=== PATIENT | female | born 1950 | race Caucasian/White ===

== ENCOUNTER 2019-08-04 11:10 | Emergency (ER) | payer MEDICARE, MEDICAID, SELFPAY ==
--- NOTE | 2019-08-04 11:29 | ED.URI ---
HPI - URI/Sore Throat General Chief Complaint: Upper Respiratory Infection Stated Complaint: Ear/Nose/Throat Time Seen by Provider: 08/04/19 11:57 Source: patient and RN notes reviewed Mode of arrival: ambulatory Limitations: no limitations History of Present Illness HPI Narrative: 68-year-old female presents with concern for throat itching, ear itching, cough, nasal drainage. Reports symptoms started over the weekend. She denies fever, reports body aches. Reports history of strep. MD elicited complaint: nasal congestion Related Data Home Medications Medication Instructions Recorded Confirmed Basaglar KwikPen U-100 Insulin 08/04/19 Corlanor 08/04/19 Novalog 08/04/19 Ventolin HFA 08/04/19 Xigduo XR 08/04/19 amitriptyline 25 mg PO HS 08/04/19 08/04/19 aspirin [Aspir-81] 08/04/19 dexlansoprazole [Dexilant] 60 mg PO DAILY 08/04/19 08/04/19 diazepam 10 mg PO TID PRN 08/04/19 08/04/19 dulaglutide [Trulicity] 0.75 mg SUBCUT WEEKLY 08/04/19 08/04/19 duloxetine 60 mg PO DAILY 08/04/19 08/04/19 flu vacc qs 2018- (6 mos up) IM 08/04/19 [Fluzone Quad [id number]] flu vacc qs 2018- (6 mos up) IM 08/04/19 [Fluzone Quad ] fluticasone propionate [Flonase INTRANASAL 08/04/19 Allergy Relief] furosemide 20 mg PO DAILY 08/04/19 08/04/19 gabapentin 800 mg PO TID 08/04/19 08/04/19 gabapentin 800 mg PO TID 08/04/19 08/04/19 levothyroxine 08/04/19 magnesium oxide 400 mg PO DAILY 08/04/19 08/04/19 naloxegol [Movantik] 25 mg PO QAM 08/04/19 08/04/19 rosuvastatin 5 mg PO DAILY 08/04/19 08/04/19 sacubitril-valsartan [Entresto] 1 tablet PO BID 08/04/19 08/04/19 sacubitril-valsartan [Entresto] 1 tablet PO BID 08/04/19 08/04/19 sitagliptin [Januvia] 100 mg PO DAILY 08/04/19 08/04/19 sumatriptan succinate 100 mg PO ONCE 08/04/19 08/04/19 theophylline 300 mg PO Q24H 08/04/19 08/04/19 valacyclovir 500 mg PO DAILY 08/04/19 08/04/19 Allergies Allergy/AdvReac Type Severity Reaction Status Date / Time Sulfa (Sulfonamide Allergy Mild UNKNOWN Verified 08/19/18 14:14 Antibiotics) Penicillins Allergy Swelling Verified 08/04/19 11:59 of Lip/Tongue/Throat Review of Systems Review of Systems: Narrative: CONSTITUTIONAL: Denies malaise, chills, sweats, or fever. EYES: Denies visual changes, redness, or discharge. ENT: Reports rhinorrhea, congestion, itchy ears and throat. Denies sinus pain, otalgia and sore throat. CARDIOVASCULAR: Denies chest pain, palpitations, or edema. RESPIRATORY: Reports cough. Denies dyspnea. GASTROINTESTINAL: Denies abdominal pain, nausea, vomiting, diarrhea SKIN: Denies rash or itching. MUSCULOSKELETAL: Reports myalgia. NEUROLOGIC: Denies headache. All systems reviewed & are unremarkable except as noted in HPI and below PMFSH Comments At time of signature, agree with nursing past medical, surgical, social and family history. There is no relevant family history pertinent to the presenting complaint Exam Narrative: Exam Narrative: GENERAL: Well-appearing, well-nourished, and in no acute distress. HEAD: Normocephalic EYES: PERRLA, conjunctivae clear ENT: Nares clear, turbinates erythematous, clear discharge. Mucous membranes moist. TM pearly pendleton with dull light reflex bilaterally; no tragal tenderness. Oropharynx erythematous without lesions. Tonsils not enlarged and without exudate, no drooling, no hoarseness, no trismus, uvula midline. NECK: Supple. No lymphadenopathy CHEST: Clear to auscultation, breath sounds equal. No wheezing, rhonchi, rales, or stridor. No respiratory distress, speaks in full sentences. HEART: Regular rate and rhythm. No murmur heard. SKIN: Warm, dry, no rash. NEURO: Alert and oriented x3. PSYCH: Normal mood and affect Course Course Emergency Course: Patient is aware of diagnosis, understands and agrees to treatment plan. Anticipatory guidance given. Patient agrees to follow-up as directed and is aware of reasons to seek care at the emergency department.
[2019-08-04 11:31] VITALS: BP 103/55; PULSE 86; RESP 20; TEMP 36.4; O2SAT 100
== END 2019-08-04 12:28 | disposition home or self-care (01) ==
PROVIDERS: Emergency Provider Nurse Practitioner; PCP Family Medicine
DX: J00 Acute nasopharyngitis [common cold] (principal); J01.90 Acute sinusitis, unspecified; I50.9 Heart failure, unspecified; E78.00 Pure hypercholesterolemia, unspecified; Z95.810 Presence of automatic (implantable) cardiac defibrillator; K21.9 Gastro-esophageal reflux disease without esophagitis; M19.90 Unspecified osteoarthritis, unspecified site; Z96.641 Presence of right artificial hip joint; F41.9 Anxiety disorder, unspecified
CPT/HCPCS: 87081; 87880; 99213; G0463

== ENCOUNTER 2019-12-22 12:49 | Emergency (ER) | payer MEDICARE, MEDICAID, SELFPAY ==
--- NOTE | ~2019-12-22 | XR_ITS ---
EXAMINATION: XR chest 2V DATE: 12/22/2019 13:34 INDICATION: Productive cough, COPD and emphysema TECHNIQUE: PA and lateral views of the chest are obtained. COMPARISON: 01/04/2014 FINDINGS: The lungs are hyperinflated but free of acute opacities. There is no pleural effusion or pn eumothorax. The cardiomediastinal silhouette is normal. A dual-lead cardiac pacemaker of the left esequiel st wall ends with leads in expected locations. The bones are osteopenic. There is stable midthoracic compression fractures. There are new age-indeterminate fractures of the lower thoracic spine. IMPRESSION: 1. Hyperinflation without acute cardiopulmonary abnormality. 2. New age-indeterminate compression fractures of the lower thoracic spine. Reviewed, dictated and finalized at location B.
[2019-12-22 13:08] VITALS: BP 101/56; PULSE 63; RESP 18; TEMP 36.8; O2SAT 93
--- NOTE | 2019-12-22 13:11 | ED.URI ---
HPI - URI/Sore Throat General Chief Complaint: Upper Respiratory Infection Stated Complaint: cough fever Time Seen by Provider: 12/22/19 13:11 Source: patient and RN notes reviewed History of Present Illness HPI Narrative: Patient is a 69-year-old female who presents the urgent care with complaints of productive cough and fever. Patient states that she has had the productive coughing fits for approximately 1 week and she does have a history of emphysema. Patient states that she has had 1 fever of 101 Fahrenheit last night which resolved with 1 dose of 800 mg ibuprofen. Patient states that she does have a history of pneumonia but has not had pneumonia this year. Patient denies of any known exposure to a COVID patient but states that her daughter has been around her recently with upper respiratory symptoms. Patient does not chronically use oxygen but does have it available at home if needed. Patient states that she has not been short of breath and has not needed any oxygen during the coughing episodes this week. Patient does religiously use her nebulizer once daily as well as her inhalers as prescribed. Patient denies any other upper respiratory symptoms. States that she has had some episodes of wheezing, per her normal. No acute distress noted. Patient read the plan of care. Related Data Home Medications Medication Instructions Recorded Confirmed albuterol sulfate 2.5 mg INHALATION DIRECTED 12/22/19 12/22/19 albuterol sulfate [Ventolin HFA] 2 inh INHALATION DIRECTED 12/22/19 12/22/19 amitriptyline 25 mg PO DAILY 12/22/19 12/22/19 aspirin 81 mg PO DAILY 12/22/19 12/22/19 carvedilol 3.125 mg PO DIRECTED 12/22/19 12/22/19 cyanocobalamin (vitamin B-12) 1,000 mcg PO DAILY 12/22/19 12/22/19 dapagliflozin-metformin [Xigduo XR] 1 tablet PO DIRECTED 12/22/19 12/22/19 dexlansoprazole [Dexilant] 60 mg PO DAILY 12/22/19 12/22/19 diazepam 10 mg PO DIRECTED 12/22/19 12/22/19 dulaglutide [Trulicity] 0.5 mg SUBCUT WEEKLY 12/22/19 12/22/19 duloxetine 60 mg PO DAILY 12/22/19 12/22/19 ergocalciferol (vitamin D2) 1,250 mcg PO DAILY 12/22/19 12/22/19 fluticasone propionate 2 mcg INTRANASAL DAILY 12/22/19 12/22/19 hydrocodone-acetaminophen 1 tablet PO DAILY 12/22/19 12/22/19 ibuprofen 800 mg PO TID 12/22/19 12/22/19 ivabradine [Corlanor] 5 mg PO DAILY 12/22/19 12/22/19 levothyroxine 25 mcg PO DAILY 12/22/19 12/22/19 magnesium oxide 400 mg PO DAILY 12/22/19 12/22/19 mometasone 0.1 % TOPICAL DIRECTED 12/22/19 12/22/19 naloxegol [Movantik] 25 mg PO DAILY 12/22/19 12/22/19 nystatin 100,000 unit TOPICAL DIRECTED 12/22/19 12/22/19 patiromer calcium sorbitex 8.4 g PO DAILY 12/22/19 12/22/19 [Veltassa] rosuvastatin 5 mg PO DAILY 12/22/19 12/22/19 sacubitril-valsartan [Entresto] 1 tablet PO DAILY 12/22/19 12/22/19 sitagliptin [Januvia] 100 mg PO DAILY 12/22/19 12/22/19 sumatriptan succinate 100 mg PO DAILY 12/22/19 12/22/19 theophylline 300 mg PO DAILY 12/22/19 12/22/19 valacyclovir 500 mg PO DIRECTED 12/22/19 12/22/19 Allergies Allergy/AdvReac Type Severity Reaction Status Date / Time Sulfa (Sulfonamide Allergy Mild UNKNOWN Verified 12/22/19 13:19 Antibiotics) Penicillins Allergy Swelling Verified 12/22/19 13:19 of Lip/Tongue/Throat Review of Systems Review of Systems: Narrative: CONSTITUTIONAL: Reports of fever EYES: Denies visual changes, redness, or discharge. ENT: Denies rhinorrhea, congestion, sore throat, or otalgia. CARDIOVASCULAR: Denies chest pain, palpitations, or edema. RESPIRATORY: Reports a productive cough with intermittent wheezing GASTROINTESTINAL: Denies abdominal pain, nausea, vomiting, or diarrhea. GENITOURINARY: Denies dysuria or hematuria. SKIN: Denies rash or itching. MUSCULOSKELETAL: Denies back pain, joint pain, or myalgia. NEUROLOGIC: Denies headache, numbness, or weakness. All other systems reviewed are negative, except as documented in HPI. [facility] Comments At the time of my signature, I
== END 2019-12-22 13:50 | disposition home or self-care (01) ==
PROVIDERS: Emergency Provider Nurse Practitioner Family; PCP Family Medicine
DX: J06.9 Acute upper respiratory infection, unspecified (principal); J43.9 Emphysema, unspecified; Z79.82 Long term (current) use of aspirin; Z79.84 Long term (current) use of oral hypoglycemic drugs
CPT/HCPCS: 71046; 99213; G0463

== ENCOUNTER 2020-05-25 11:19 | Emergency (ER) | payer MEDICARE, MEDICAID, SELFPAY ==
--- NOTE | ~2020-05-25 | XR_ITS ---
XR chest 2V DATE: 05/25/2020 11:52 INDICATION: Chest tightness, shortness of breath for one week. History of COPD. Ex-smoker. TECHNIQUE: 2 views COMPARISON: 12/14/2019 2 view chest FINDINGS: Left-sided pacemaker device with leads overlying right atrium and right ventricle is again noted. Normal heart size. No hilar or mediastinal enlargement. The lungs are mildly hyperinflated but clear of infiltrate or consolidation. No pulmonary mass lesion is evident. No pleural effusion or pulmonary vascular congestion or pneumothorax. There is diffuse osteopenia. There is dextroscoliosis of the thoracic spine and lumbar levoscoliosis. There are multiple apparent compression fracture deformities of the thoracic spine, also present on . IMPRESSION: No active disease or significant change since 12/14/2019 Reviewed, dictated and finalized at location A. [employer]
[2020-05-25 11:31] VITALS: BP 118/72; PULSE 88; RESP 14; TEMP 36.2; O2SAT 100
--- NOTE | 2020-05-25 11:52 | ED.URI ---
HPI - URI/Sore Throat General Chief Complaint: Upper Respiratory Infection Stated Complaint: Thinks have pneumonia Time Seen by Provider: 05/25/20 11:52 History of Present Illness HPI Narrative: Kary Bellamy is a 69 yo female with a PMH of CHF, pacemaker, HTN, copd, depression, high cholesterol, HSV, who comes to express care for complaints of chest discomfort and is worried about having pneumonia. Came here for chest x-ray and would like an antibiotic. No fever no shortness of breath no congestion. Related Data Home Medications Medication Instructions Recorded Confirmed albuterol sulfate 2.5 mg INHALATION DIRECTED 12/22/19 05/25/20 albuterol sulfate [Ventolin HFA] 2 inh INHALATION DIRECTED 12/22/19 05/25/20 amitriptyline 25 mg PO DAILY 12/22/19 05/25/20 aspirin 81 mg PO DAILY 12/22/19 05/25/20 carvedilol 3.125 mg PO DAILY 12/22/19 05/25/20 cyanocobalamin (vitamin B-12) 1,000 mcg PO DAILY 12/22/19 05/25/20 dapagliflozin-metformin [Xigduo XR] 1 tablet PO BID 12/22/19 05/25/20 dexlansoprazole [Dexilant] 60 mg PO DAILY 12/22/19 05/25/20 diazepam 10 mg PO DIRECTED 12/22/19 05/25/20 dulaglutide [Trulicity] 0.5 mg SUBCUT WEEKLY 12/22/19 05/25/20 duloxetine 60 mg PO DAILY 12/22/19 05/25/20 ergocalciferol (vitamin D2) 1,250 mcg PO DAILY 12/22/19 05/25/20 fluticasone propionate 2 mcg INTRANASAL DAILY 12/22/19 05/25/20 hydrocodone-acetaminophen 1 tablet PO DAILY 12/22/19 05/25/20 ivabradine [Corlanor] 5 mg PO DAILY 12/22/19 05/25/20 levothyroxine 25 mcg PO DAILY 12/22/19 05/25/20 magnesium oxide 400 mg PO DAILY 12/22/19 05/25/20 naloxegol [Movantik] 25 mg PO DAILY 12/22/19 05/25/20 patiromer calcium sorbitex 8.4 g PO DAILY 12/22/19 05/25/20 [Veltassa] rosuvastatin 5 mg PO DAILY 12/22/19 05/25/20 sacubitril-valsartan [Entresto] 1 tablet PO DAILY 12/22/19 05/25/20 sitagliptin [Januvia] 100 mg PO DAILY 12/22/19 05/25/20 sumatriptan succinate 100 mg PO DAILY 12/22/19 05/25/20 theophylline 300 mg PO DAILY 12/22/19 05/25/20 valacyclovir 500 mg PO DIRECTED 12/22/19 05/25/20 Allergies Allergy/AdvReac Type Severity Reaction Status Date / Time Sulfa (Sulfonamide Allergy Mild UNKNOWN Verified 05/25/20 11:45 Antibiotics) Penicillins Allergy Swelling Verified 05/25/20 11:45 of Lip/Tongue/Throat Review of Systems Review of Systems: Narrative: CONSTITUTIONAL: Denies fever, chills, sweats. EYES: Denies visual changes, redness, discharge. ENT: Denies rhinorrhea, congestion, sore throat, otalgia. CARDIOVASCULAR: Denies chest pain, palpitations, edema. RESPIRATORY: Denies dyspnea, wheezing, has mild cough GASTROINTESTINAL: Denies abdominal pain, nausea, vomiting, diarrhea. GENITOURINARY: Denies dysuria, hematuria, abnormal discharge SKIN: Denies rash or itching. NEUROLOGIC: Denies numbness, or focal weakness. PSYCHIATRIC: Denies anxiety or depression. PMFSH Past Medical History Medical History CHF (congestive heart failure) COPD (chronic obstructive pulmonary disease) Hypertension Pacemaker Family History Family History Other Heart disease Hypertension Social History Social History (Updated 05/25/20 @ 12:03 by Marina Howard CNP) Smoking status: Former smoker Alcohol intake: current Comments At time of signature, I agree with nursing past medical, surgical, social and family history. There is no relevant family history pertinent to the presenting complaint. Exam Narrative: Exam Narrative: GENERAL: This is a well-nourished, well-developed patient, in mild distress. HEAD: normocephalic, atraumatic. EYES: Sclera clear/white. Vision is grossly intact. EARS: External ears normal,Hearing grossly intact. NOSE: External nose normal without nasal discharge, nares without redness, no rhinorrhea. THROAT: Mucous membranes moist, posterior pharynx NECK: Neck supple, CARDIOVASCU
== END 2020-05-25 12:21 | disposition home or self-care (01) ==
PROVIDERS: Emergency Provider Nurse Practitioner; PCP Family Medicine
DX: R05 Cough (principal); Z87.891 Personal history of nicotine dependence; I11.0 Hypertensive heart disease with heart failure; I50.9 Heart failure, unspecified; J44.9 Chronic obstructive pulmonary disease, unspecified; Z95.0 Presence of cardiac pacemaker; F32.9 Major depressive disorder, single episode, unspecified; E78.00 Pure hypercholesterolemia, unspecified
CPT/HCPCS: 71046; 99213; G0463

== ENCOUNTER 2021-01-21 17:55 | Emergency (ER) | payer MEDICARE, MEDICAID, SELFPAY ==
[2021-01-21 18:02] VITALS: BP 98/60; PULSE 73; RESP 16; TEMP 36.4; O2SAT 100
--- NOTE | 2021-01-21 18:05 | ED.URI ---
HPI - URI/Sore Throat General Chief Complaint: Upper Respiratory Infection Stated Complaint: sore throat congestion swollen ankle Time Seen by Provider: 01/21/21 18:15 Source: patient and RN notes reviewed Mode of arrival: ambulatory Limitations: no limitations History of Present Illness HPI Narrative: 70-year-old female presents with concern for hoarse voice, chest congestion, swollen ankle. She has a history of COPD, hypertension, congestive heart failure. She denies sore throat, nasal congestion, rhinorrhea, body aches, chills, sweats, fever, shortness of breath. Reports slightly increased cough from baseline. She denies any [id number] intervention. Reports she has as needed Lasix to take, however she does not take it because it makes her blood pressure drop. She denies any ankle injury, pain, redness, warmth. Reports she has been elevating her legs which has helped slightly with the swelling MD elicited complaint: sore throat Related Data Home Medications Medication Instructions Recorded Confirmed albuterol sulfate 2.5 mg INHALATION DIRECTED 12/22/19 01/21/21 albuterol sulfate [Ventolin HFA] 2 inh INHALATION DIRECTED 12/22/19 01/21/21 amitriptyline 25 mg PO DAILY 12/22/19 01/21/21 aspirin 81 mg PO DAILY 12/22/19 01/21/21 carvedilol 3.125 mg PO DAILY 12/22/19 01/21/21 cyanocobalamin (vitamin B-12) 1,000 mcg PO DAILY 12/22/19 01/21/21 dapagliflozin-metformin [Xigduo XR] 1 tablet PO BID 12/22/19 01/21/21 dexlansoprazole [Dexilant] 60 mg PO DAILY 12/22/19 01/21/21 diazepam 10 mg PO DIRECTED 12/22/19 01/21/21 dulaglutide [Trulicity] 0.5 mg SUBCUT WEEKLY 12/22/19 01/21/21 duloxetine 60 mg PO DAILY 12/22/19 01/21/21 ergocalciferol (vitamin D2) 1,250 mcg PO DAILY 12/22/19 01/21/21 fluticasone propionate 2 mcg INTRANASAL DAILY 12/22/19 01/21/21 ivabradine [Corlanor] 5 mg PO DAILY 12/22/19 01/21/21 levothyroxine 25 mcg PO DAILY 12/22/19 01/21/21 magnesium oxide 400 mg PO DAILY 12/22/19 01/21/21 naloxegol [Movantik] 25 mg PO DAILY 12/22/19 01/21/21 patiromer calcium sorbitex 8.4 g PO DAILY 12/22/19 01/21/21 [Veltassa] rosuvastatin 5 mg PO DAILY 12/22/19 01/21/21 sacubitril-valsartan [Entresto] 1 tablet PO DAILY 12/22/19 01/21/21 sitagliptin [Januvia] 100 mg PO DAILY 12/22/19 01/21/21 sumatriptan succinate 100 mg PO DAILY 12/22/19 01/21/21 theophylline 300 mg PO DAILY 12/22/19 01/21/21 valacyclovir 500 mg PO DIRECTED 12/22/19 01/21/21 hydrocodone-acetaminophen 1 tablet PO DAILY 01/21/21 01/21/21 Allergies Allergy/AdvReac Type Severity Reaction Status Date / Time Sulfa (Sulfonamide Allergy Mild Rash Verified 01/21/21 18:15 Antibiotics) Penicillins Allergy Swelling Verified 05/25/20 11:45 of Lip/Tongue/Throat Review of Systems Review of Systems: CONSTITUTIONAL: Denies malaise, chills, sweats, or fever. EYES: Denies visual changes, redness, or discharge. ENT: Denies rhinorrhea, congestion, sinus pain, otalgia and sore throat. CARDIOVASCULAR: Denies chest pain, palpitations. Reports ankle edema edema. RESPIRATORY: Reports cough, chest congestion, slightly hoarse voice. Denies dyspnea. GASTROINTESTINAL: Denies abdominal pain, nausea, vomiting, diarrhea SKIN: Denies rash or itching. MUSCULOSKELETAL: Denies myalgia. NEUROLOGIC: Denies headache. All systems reviewed & are unremarkable except as noted in HPI and below PMFSH Past Medical History Medical History CHF (congestive heart failure) COPD (chronic obstructive pulmonary disease) Hypertension Pacemaker Family History Family History Other Heart disease Hypertension Social History Social History (Updated 05/25/20 @ 12:03 by Marina Howard CNP) Smoking status: Former smoker Alcohol intake: current Comments At time of signature, agree with nursing past medical, surgical, social and family history. There is no relevant fa
[2021-01-21 18:16] VITALS: BP 98/60; PULSE 73; RESP 16; TEMP 36.4; O2SAT 100
== END 2021-01-21 18:32 | disposition home or self-care (01) ==
PROVIDERS: Emergency Provider Nurse Practitioner; PCP Family Medicine
DX: J40 Bronchitis, not specified as acute or chronic (principal); R60.0 Localized edema; J44.9 Chronic obstructive pulmonary disease, unspecified; I11.0 Hypertensive heart disease with heart failure; I50.9 Heart failure, unspecified; Z95.0 Presence of cardiac pacemaker
CPT/HCPCS: 99213; G0463

== ENCOUNTER 2021-08-31 13:12 | Emergency (ER) | payer OTHER, SELFPAY ==
--- NOTE | ~2021-08-31 | XR_ITS ---
EXAMINATION: XR chest 2V EXAM DATE: 08/31/2021 13:47 INDICATION: Cough wheezing x 1 month hx defibrillator. TECHNIQUE: Frontal and lateral projections of the chest obtained and reviewed. Comparison is made to prior examination from 05/25/2020. FINDINGS: The lungs are hyperinflated which can be seen with chronic obstructive pulmonary disease ( a clinical diagnosis of functional impairment), but is not diagnostic of it. There is a dual lead pac emaker/AICD seen with leads projecting over the expected locations of the right atrial appendage and right ventricle. The lungs are clear. There are no pleural effusions. The cardiomediastinal silhoue tte is within normal limits. There is no pneumothorax suspected. Mild to moderate anterior wedging of a mid and a lower thoracic vertebral body, chronic compression fractures. There is no significant interval change. IMPRESSION: No acute cardiopulmonary findings. Reviewed, dictated and finalized at location A.
--- NOTE | 2021-08-31 13:16 | ED.URI ---
HPI - URI/Sore Throat General Chief Complaint: Upper Respiratory Infection Stated Complaint: wheezing scratchy throat Time Seen by Provider: 08/31/21 13:18 Source: patient and RN notes reviewed History of Present Illness HPI Narrative: Patient is a 70-year-old female who presents the urgent care with her caregiver with complaints of wheezes, shortness of breath and sore throat for the last 2 days. Patient is a COPD patient and does have recurrent shortness of breath. Patient was diagnosed with pneumonia approximately 1 month ago and was placed on Levaquin and then changed to a clarithromycin. Patient was also placed on steroids. States that the pneumonia was in the right lower lobe and she has continuously felt some pain there. Patient also reports of intermittent sweats for the last 4 days. Denies of any known fevers, denies of any chest pain. No other acute complaints. No acute distress noted. Patient aware of the plan of care. Some parts of this dictation were generated by voice recognition software and may contain typographical and/or grammatical inaccuracies. Related Data Home Medications Medication Instructions Recorded Confirmed albuterol sulfate 2.5 mg INHALATION DIRECTED 12/22/19 08/31/21 albuterol sulfate [Ventolin HFA] 2 inh INHALATION DIRECTED 12/22/19 08/31/21 amitriptyline 25 mg PO DAILY 12/22/19 08/31/21 aspirin 81 mg PO DAILY 12/22/19 08/31/21 carvedilol 3.125 mg PO DAILY 12/22/19 08/31/21 cyanocobalamin (vitamin B-12) 1,000 mcg PO DAILY 12/22/19 08/31/21 dapagliflozin-metformin [Xigduo XR] 1 tablet PO BID 12/22/19 08/31/21 dexlansoprazole [Dexilant] 60 mg PO DAILY 12/22/19 08/31/21 diazepam 10 mg PO DIRECTED 12/22/19 08/31/21 dulaglutide [Trulicity] 0.5 mg SUBCUT WEEKLY 12/22/19 08/31/21 duloxetine 60 mg PO DAILY 12/22/19 08/31/21 ergocalciferol (vitamin D2) 1,250 mcg PO DAILY 12/22/19 08/31/21 fluticasone propionate 2 mcg INTRANASAL DAILY 12/22/19 08/31/21 ivabradine [Corlanor] 5 mg PO DAILY 12/22/19 08/31/21 levothyroxine 25 mcg PO DAILY 12/22/19 08/31/21 magnesium oxide 400 mg PO DAILY 12/22/19 08/31/21 naloxegol [Movantik] 25 mg PO DAILY 12/22/19 08/31/21 patiromer calcium sorbitex 8.4 g PO DAILY 12/22/19 08/31/21 [Veltassa] rosuvastatin 5 mg PO DAILY 12/22/19 08/31/21 sacubitril-valsartan [Entresto] 1 tablet PO DAILY 12/22/19 08/31/21 sitagliptin [Januvia] 100 mg PO DAILY 12/22/19 08/31/21 sumatriptan succinate 100 mg PO DAILY 12/22/19 08/31/21 theophylline 300 mg PO DAILY 12/22/19 08/31/21 valacyclovir 500 mg PO DIRECTED 12/22/19 08/31/21 hydrocodone-acetaminophen 1 tablet PO DAILY 01/21/21 08/31/21 Allergies Allergy/AdvReac Type Severity Reaction Status Date / Time Sulfa (Sulfonamide Allergy Mild Rash Verified 08/31/21 13:31 Antibiotics) Penicillins Allergy Swelling Verified 08/31/21 13:31 of Lip/Tongue/Throat Review of Systems Review of Systems: CONSTITUTIONAL: Denies fever, chills, or sweats. EYES: Denies visual changes, redness, or discharge. ENT: Denies rhinorrhea, congestion, or otalgia. Reports of shortness of breath CARDIOVASCULAR: Denies chest pain, palpitations, or edema. RESPIRATORY: Reports of chronic cough with wheezing and dyspnea GASTROINTESTINAL: Denies abdominal pain, nausea, vomiting, or diarrhea. GENITOURINARY: Denies dysuria or hematuria. SKIN: Denies rash or itching. MUSCULOSKELETAL: Denies back pain, joint pain, or myalgia. NEUROLOGIC: Denies headache, numbness, or weakness. All other systems reviewed are negative, except as documented in HPI. [facility] Past Medical History Medical History CHF (congestive heart failure) COPD (chronic obstructive pulmonary disease) Hypertension Pacemaker Family History Family History Other Heart disease Hypertension Social History Social History (Updated 05/25/20 @ 12:03 by Marina Howard CNP) S
[2021-08-31 13:22] VITALS: BP 107/59; PULSE 85; RESP 16; TEMP 36.7; O2SAT 97
[2021-08-31 13:33] VITALS: BP 107/59; PULSE 85; RESP 16; TEMP 36.7; O2SAT 97
== END 2021-08-31 14:40 | disposition home or self-care (01) ==
PROVIDERS: Emergency Provider Nurse Practitioner Family; PCP Family Medicine
DX: J44.9 Chronic obstructive pulmonary disease, unspecified (principal); Z87.891 Personal history of nicotine dependence; I11.0 Hypertensive heart disease with heart failure; I50.9 Heart failure, unspecified; Z95.0 Presence of cardiac pacemaker; Z79.82 Long term (current) use of aspirin
CPT/HCPCS: 71046; 87804; 99213; G0463

== ENCOUNTER 2021-09-28 13:47 | Emergency (ER) | payer OTHER, SELFPAY ==
--- NOTE | ~2021-09-28 | XR_ITS ---
EXAMINATION: XR chest 2V DATE: 09/28/2021 14:30 INDICATION: Cough. Bronchitis and pneumonia. TECHNIQUE: PA and lateral views of the chest were obtained. COMPARISON: Chest radiograph dated 08/31/2021 FINDINGS: The lungs remain clear with no focal airspace opacities, pulmonary edema, pleural effusion or pneumot horax. The cardiomediastinal silhouette is normal. Dual lead pacemaker seen with leads projecting ove r the expected locations of the right atrium and right ventricle. Mild thoracic dextroscoliosis with mild spondylosis. Again seen are several chronic compression fractures in the mid and lower thoracic spine. IMPRESSION: 1. No acute cardiopulmonary disease. Reviewed, dictated and finalized at location A.
[2021-09-28 13:58] VITALS: BP 112/53; PULSE 71; RESP 16; TEMP 36.3; O2SAT 99
--- NOTE | 2021-09-28 14:05 | ED.URI ---
HPI - URI/Sore Throat General Chief Complaint: Upper Respiratory Infection Stated Complaint: Chest Congestion/Congestion Time Seen by Provider: 09/28/21 14:05 Source: patient and RN notes reviewed Mode of arrival: ambulatory Limitations: no limitations History of Present Illness HPI Narrative: 71 y/o female with hx COPD, CHF, HTN presented for c/o productive cough for one week. Endorses chest congestion, yellow/white sputum, runny nose, headache. Also states she is sob at baseline, but worse this week and has noticed wheezing. Taking prescribed Trelegy as directed along with nebs and ventolin. Hx pneumonia about 2 months ago. She took one dose mucinex yesterday and imitrex today for headache. She is vaccinated for covid and flu. Denies sick contacts. Denies cp, palpitations, n/v/d/f/c. MD elicited complaint: cough Related Data Home Medications Medication Instructions Recorded Confirmed albuterol sulfate 2.5 mg INHALATION DIRECTED 12/22/19 08/31/21 albuterol sulfate [Ventolin HFA] 2 inh INHALATION DIRECTED 12/22/19 08/31/21 amitriptyline 25 mg PO DAILY 12/22/19 08/31/21 aspirin 81 mg PO DAILY 12/22/19 08/31/21 carvedilol 3.125 mg PO DAILY 12/22/19 08/31/21 cyanocobalamin (vitamin B-12) 1,000 mcg PO DAILY 12/22/19 08/31/21 dapagliflozin-metformin [Xigduo XR] 1 tablet PO BID 12/22/19 08/31/21 dexlansoprazole [Dexilant] 60 mg PO DAILY 12/22/19 08/31/21 diazepam 10 mg PO DIRECTED 12/22/19 08/31/21 dulaglutide [Trulicity] 0.5 mg SUBCUT WEEKLY 12/22/19 08/31/21 duloxetine 60 mg PO DAILY 12/22/19 08/31/21 ergocalciferol (vitamin D2) 1,250 mcg PO DAILY 12/22/19 08/31/21 fluticasone propionate 2 mcg INTRANASAL DAILY 12/22/19 08/31/21 ivabradine [Corlanor] 5 mg PO DAILY 12/22/19 08/31/21 levothyroxine 25 mcg PO DAILY 12/22/19 08/31/21 magnesium oxide 400 mg PO DAILY 12/22/19 08/31/21 naloxegol [Movantik] 25 mg PO DAILY 12/22/19 08/31/21 patiromer calcium sorbitex 8.4 g PO DAILY 12/22/19 08/31/21 [Veltassa] rosuvastatin 5 mg PO DAILY 12/22/19 08/31/21 sacubitril-valsartan [Entresto] 1 tablet PO DAILY 12/22/19 08/31/21 sitagliptin [Januvia] 100 mg PO DAILY 12/22/19 08/31/21 sumatriptan succinate 100 mg PO DAILY 12/22/19 08/31/21 theophylline 300 mg PO DAILY 12/22/19 08/31/21 valacyclovir 500 mg PO DIRECTED 12/22/19 08/31/21 hydrocodone-acetaminophen 1 tablet PO DAILY 01/21/21 08/31/21 Allergies Allergy/AdvReac Type Severity Reaction Status Date / Time Sulfa (Sulfonamide Allergy Mild Rash Verified 08/31/21 13:31 Antibiotics) Penicillins Allergy Swelling Verified 08/31/21 13:31 of Lip/Tongue/Throat Review of Systems Review of Systems: CONSTITUTIONAL: denies malaise, chills, sweats, fever EYES: Denies visual changes, redness, or discharge ENT: Reports rhinorrhea, denies sinus pain, otalgia, sore throat CARDIOVASCULAR: Denies chest pain, palpitations, reports edema RESPIRATORY: Reports cough, post nasal drainage, dyspnea GASTROINTESTINAL: Denies abdominal pain, nausea, vomiting, diarrhea SKIN: Denies rash or itching MUSCULOSKELETAL: denies myalgia NEUROLOGIC: Denies headache [facility] [place] Past Medical History Medical History CHF (congestive heart failure) COPD (chronic obstructive pulmonary disease) Hypertension Pacemaker Family History Family History Other Heart disease Hypertension Social History Social History Smoking status: Former smoker Alcohol intake: current Exam Narrative: GENERAL: Ill-appearing, nontoxic HEAD: Normocephalic EYES: conjunctivae clear ENT: Mucous membranes moist. TM pearly pendleton with dull light reflex bilaterally; no tragal tenderness. Oropharynx erythematous without lesions or exudate, no drooling, no hoarseness, no trismus, uvula midline. NECK: Supple. No lymphadenopathy CHEST: Moist productive cough.
== END 2021-09-28 14:56 | disposition home or self-care (01) ==
PROVIDERS: Emergency Provider Nurse Practitioner Family; PCP Family Medicine
DX: J44.1 Chronic obstructive pulmonary disease with (acute) exacerbation (principal); I11.0 Hypertensive heart disease with heart failure; I50.9 Heart failure, unspecified; Z95.0 Presence of cardiac pacemaker; Z87.891 Personal history of nicotine dependence
CPT/HCPCS: 71046; 99213; G0463

== ENCOUNTER 2021-11-27 12:57 | Emergency (ER) | payer OTHER, SELFPAY ==
[2021-11-27 13:02] VITALS: BP 92/52; PULSE 83; RESP 16; TEMP 36.6; O2SAT 95
--- NOTE | 2021-11-27 13:21 | ED.URI ---
HPI - URI/Sore Throat General Chief Complaint: Upper Respiratory Infection Stated Complaint: poss pnuemonia Time Seen by Provider: 11/27/21 13:21 Source: patient Mode of arrival: ambulatory Limitations: no limitations History of Present Illness HPI Narrative: 71 yo F presents with c/o fatigue, nasal congestion, cough for 3 to 4 days. States i am getting sick again . Pt reports that she was admitted to hospital in August for pneumoina. Did a sputum culture and it was caused by a broad spectrum bacteria. States she had a chest CT, which was the only imaging that showed the pneumonia. Did not show on chest x-ray. Had a CT scan after abx tx that showed pneumonia has cleared. She states that she has been sick many times since august and she feels it is the same bacteria, although she has not followed up with PCP and had a repeat sputum culture. She is requesting steroids and bactrim. Pt and her son think the bacteria is colonizing and bactrim is the only antibiotic that treat it . pt has hx of COPD. She has been using inhalers as prescribed. She is speaking in full sentences, no resp distress noted. She denies fever/chills. No bodyaches. Denies CP and SOB. All systems reviewed and negative except as noted above. Related Data Home Medications Medication Instructions Recorded Confirmed albuterol sulfate 2.5 mg/3 mL 2.5 mg inhalation DIRECTED 12/22/19 11/27/21 (0.083 %) solution for nebulization albuterol sulfate 90 mcg/actuation 2 inh inhalation DIRECTED 12/22/19 11/27/21 aerosol inhaler (Ventolin HFA) amitriptyline 25 mg tablet 25 mg PO DAILY 12/22/19 11/27/21 aspirin 81 mg tablet,delayed 81 mg PO DAILY 12/22/19 11/27/21 release carvedilol 3.125 mg tablet 3.125 mg PO DAILY 12/22/19 11/27/21 cyanocobalamin (vitamin B-12) 1,000 mcg PO DAILY 12/22/19 11/27/21 1,000 mcg tablet,extended release dapagliflozin 5 mg-metformin ER 1 tablet PO BID 12/22/19 11/27/21 1,000 mg tablet,extended release 24hr (Xigduo XR) dexlansoprazole 60 mg 60 mg PO DAILY 12/22/19 11/27/21 capsule,biphase delayed release (Dexilant) diazepam 10 mg tablet 10 mg PO DIRECTED 12/22/19 11/27/21 dulaglutide 0.75 mg/0.5 mL 0.5 mg subcut WEEKLY 12/22/19 11/27/21 subcutaneous pen injector (Trulicity) duloxetine 60 mg capsule,delayed 60 mg PO DAILY 12/22/19 11/27/21 release ergocalciferol (vitamin D2) 1,250 1,250 mcg PO DAILY 12/22/19 11/27/21 mcg (50,000 unit) capsule fluticasone propionate 50 2 mcg intranasal DAILY 12/22/19 11/27/21 mcg/actuation nasal spray,suspension ivabradine 5 mg tablet (Corlanor) 5 mg PO DAILY 12/22/19 11/27/21 levothyroxine 25 mcg tablet 25 mcg PO DAILY 12/22/19 11/27/21 magnesium oxide 400 mg (241.3 mg 400 mg PO DAILY 12/22/19 11/27/21 magnesium) tablet naloxegol 25 mg tablet (Movantik) 25 mg PO DAILY 12/22/19 11/27/21 patiromer calcium sorbitex 8.4 8.4 g PO DAILY 12/22/19 11/27/21 gram oral powder packet (Veltassa) rosuvastatin 5 mg tablet 5 mg PO DAILY 12/22/19 11/27/21 sacubitril 24 mg-valsartan 26 mg 1 tablet PO DAILY 12/22/19 11/27/21 tablet (Entresto) sitagliptin 100 mg tablet (Januvia) 100 mg PO DAILY 12/22/19 11/27/21 sumatriptan succinate 100 mg tablet 100 mg PO DAILY 12/22/19 11/27/21 theophylline 300 mg 300 mg PO DAILY 12/22/19 11/27/21 tablet,extended release,12 hr valacyclovir 500 mg tablet 500 mg PO DIRECTED 12/22/19 11/27/21 hydrocodone 7.5 mg-acetaminophen 1 tablet PO DAILY 01/21/21 11/27/21 300 mg tablet Allergies Allergy/AdvReac Type Severity Reaction Status Date / Time Sulfa (Sulfonamide Allergy Mild Rash Verified 11/27/21 13:22 Antibiotics) Penicillins Allergy Swelling Verified 11/27/21 13:22 of Lip/Tongue/Throat Review of Systems Review of Systems: CONSTITUTIONAL: Denies fever, chills, or sweats. EYES: Denies visual changes, redness, or discharge. ENT: Reports rhinorrhea, congestion. Denies sore throat, or otalgia. CARDIOVASCULAR: Denies chest
== END 2021-11-27 14:00 | disposition home or self-care (01) ==
PROVIDERS: Emergency Provider Nurse Practitioner Family; PCP Family Medicine
DX: J06.9 Acute upper respiratory infection, unspecified (principal); Z20.822 Contact with and (suspected) exposure to COVID-19; I11.0 Hypertensive heart disease with heart failure; I50.9 Heart failure, unspecified; J44.9 Chronic obstructive pulmonary disease, unspecified; Z95.0 Presence of cardiac pacemaker; Z87.891 Personal history of nicotine dependence
CPT/HCPCS: 87426; 99213; C9803; G0463

== ENCOUNTER 2022-02-18 14:36 | Emergency (ER) | payer OTHER, SELFPAY ==
--- NOTE | ~2022-02-18 | XR_ITS ---
XR chest 2V DATE: 02/18/2022 15:08 INDICATION: Chest congestion for 2 days. History of COPD, congestive heart.. Ex-smoker. TECHNIQUE: 2 views COMPARISON: 09/28/2021 PA and lateral chest FINDINGS: Left-sided transvenous pacemaker device with leads overlying right atrium and right ventric le. Heart size is normal. No hilar or mediastinal enlargement. The lungs are hyperinflated but clear of infiltrate or consolidation. No pleural effusion or pulmonar y vascular congestion or pneumothorax. Diffuse osteopenia. Dextroscoliosis of the thoracic spine, levoscoliosis of lumbar spine. Multiple co mpression fracture deformities of the thoracic spine, appearing relatively stable since 09/28/2021. IMPRESSION: Left dual-lead transvenous pacemaker No active cardiac pulmonary disease Diffuse osteopenia, stable compression fractures of thoracic spine Reviewed, dictated and finalized at location A.
[2022-02-18 14:50] VITALS: BP 96/58; PULSE 75; RESP 14; TEMP 36.4; O2SAT 100
--- NOTE | 2022-02-18 15:22 | ED.GENADULT ---
HPI - General Adult General Chief complaint: Upper Respiratory Infection Stated complaint: Chest Congestion Source: patient Mode of arrival: ambulatory Limitations: no limitations History of Present Illness HPI narrative: Patient presents for evaluation of respiratory symptoms for the last 4 days. Symptoms include cough, shortness of breath, wheezing, fatigue. She denies any fever, chills, sore throat, otalgia, nausea, vomiting, diarrhea. No personal history of COVID. She has been vaccinated for COVID and influenza this season. No recent sick contacts. She does not smoke. She has underlying COPD and CHF. She states she was hospitalized in the past at [facility] and was told she had a respiratory infection that did not show up on CXR. Her son informs me that she has been given bactrim in the past to prevent respiratory symptoms from progressing into pneumonia. Related Data Home Medications Medication Instructions Recorded Confirmed albuterol sulfate 2.5 mg/3 mL 2.5 mg inhalation DIRECTED 12/22/19 02/18/22 (0.083 %) solution for nebulization albuterol sulfate 90 mcg/actuation 2 inh inhalation DIRECTED 12/22/19 02/18/22 aerosol inhaler (Ventolin HFA) amitriptyline 25 mg tablet 25 mg PO DAILY 12/22/19 02/18/22 aspirin 81 mg tablet,delayed 81 mg PO DAILY 12/22/19 02/18/22 release carvedilol 3.125 mg tablet 3.125 mg PO DAILY 12/22/19 02/18/22 cyanocobalamin (vitamin B-12) 1,000 mcg PO DAILY 12/22/19 02/18/22 1,000 mcg tablet,extended release dapagliflozin 5 mg-metformin ER 1 tablet PO BID 12/22/19 02/18/22 1,000 mg tablet,extended release 24hr (Xigduo XR) dexlansoprazole 60 mg 60 mg PO DAILY 12/22/19 02/18/22 capsule,biphase delayed release (Dexilant) diazepam 10 mg tablet 10 mg PO DIRECTED 12/22/19 02/18/22 dulaglutide 0.75 mg/0.5 mL 0.5 mg subcut WEEKLY 12/22/19 02/18/22 subcutaneous pen injector (Trulicity) duloxetine 60 mg capsule,delayed 60 mg PO DAILY 12/22/19 02/18/22 release ergocalciferol (vitamin D2) 1,250 1,250 mcg PO DAILY 12/22/19 02/18/22 mcg (50,000 unit) capsule ivabradine 5 mg tablet (Corlanor) 5 mg PO DAILY 12/22/19 02/18/22 levothyroxine 25 mcg tablet 25 mcg PO DAILY 12/22/19 02/18/22 magnesium oxide 400 mg (241.3 mg 400 mg PO DAILY 12/22/19 02/18/22 magnesium) tablet naloxegol 25 mg tablet (Movantik) 25 mg PO DAILY 12/22/19 02/18/22 patiromer calcium sorbitex 8.4 8.4 g PO DAILY 12/22/19 02/18/22 gram oral powder packet (Veltassa) rosuvastatin 5 mg tablet 5 mg PO DAILY 12/22/19 02/18/22 sacubitril 24 mg-valsartan 26 mg 1 tablet PO DAILY 12/22/19 02/18/22 tablet (Entresto) sitagliptin 100 mg tablet (Januvia) 100 mg PO DAILY 12/22/19 02/18/22 sumatriptan succinate 100 mg tablet 100 mg PO DAILY 12/22/19 02/18/22 theophylline 300 mg 300 mg PO DAILY 12/22/19 02/18/22 tablet,extended release,12 hr valacyclovir 500 mg tablet 500 mg PO DIRECTED 12/22/19 02/18/22 hydrocodone 7.5 mg-acetaminophen 1 tablet PO DAILY 01/21/21 02/18/22 300 mg tablet Allergies Allergy/AdvReac Type Severity Reaction Status Date / Time Penicillins Allergy Swelling Verified 02/18/22 14:57 of Lip/Tongue/Throat Review of Systems Review of Systems: CONSTITUTIONAL: Denies fever, chills, or sweats. EYES: Denies visual changes, redness, or discharge. ENT: Denies rhinorrhea, congestion, sore throat, or otalgia. CARDIOVASCULAR: Denies chest pain, palpitations, or edema. RESPIRATORY: Reports cough, SOB and wheezing GASTROINTESTINAL: Denies abdominal pain, nausea, vomiting, or diarrhea. GENITOURINARY: Denies dysuria or hematuria. SKIN: Denies rash or itching. MUSCULOSKELETAL: Denies back pain, joint pain, or myalgia. NEUROLOGIC: Denies headache, numbness, dizziness, or weakness. PSYCHIATRIC: Denies anxiety or depression. [facility] Past Medical History Medical History CHF (congestive heart failure) COPD (chronic obstru
== END 2022-02-18 15:55 | disposition home or self-care (01) ==
PROVIDERS: Emergency Provider Nurse Practitioner; PCP Family Medicine
DX: J44.1 Chronic obstructive pulmonary disease with (acute) exacerbation (principal); Z20.822 Contact with and (suspected) exposure to COVID-19; Z87.891 Personal history of nicotine dependence; I11.0 Hypertensive heart disease with heart failure; I50.9 Heart failure, unspecified; Z95.0 Presence of cardiac pacemaker; Z79.82 Long term (current) use of aspirin
CPT/HCPCS: 71046; 87426; 87804; 99213; C9803; G0463

== ENCOUNTER 2022-04-12 13:30 | Emergency (ER) | payer OTHER, SELFPAY ==
--- NOTE | ~2022-04-12 | XR_ITS ---
EXAMINATION: XR chest 2V 04/12/2022 14:58 INDICATION: Cough with wheezing. COPD. PROCEDURE: 2 view chest COMPARISON: Comparison to multiple prior studies sequentially, with oldest reviewed study dated 04/28. FINDINGS: The lungs are clear. The cardiomediastinal silhouette is within normal limits. There are no pleural effusions. There is no pneumothorax suspected. There are multiple chronic wedge compress ion deformities of the thoracic spine. Pacemaker leads are stable. The lungs are hyperinflated which is consistent with, but not diagnostic of chronic obstructive pulmonary disease. IMPRESSION: 1: NO ACUTE CARDIOPULMONARY DISEASE. Reviewed, dictated and finalized at location A. STICKER
[2022-04-12 13:39] VITALS: BP 107/50; PULSE 68; RESP 16; TEMP 36.1; O2SAT 98
--- NOTE | 2022-04-12 14:01 | PC.NURSE ---
FRIEND CAME TO DESK AND ASKED NURSE TO CHECK PT BLOOD SUGAR SHE FELT TIRED AND LIKE HER SUGAR WAS GETTING LOW. PT ATE 3 PIECES OF CANDY AND FSBS=58. REPORTED IT WAS OVER 200 AT HOME AND SHE TOOK 6 UNITS OF HER INSULIN.
[2022-04-12 14:11] LABS: Glucose Point of Care 58 mg/dl (65-105)
--- NOTE | 2022-04-12 14:32 | ED.URI ---
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 hx COPD, CHF. Patient is vaccinated for flu and covid and declines testing. Denies sob, n/v/d/f/c. Patient also reports blood sugar was elevated over 200 this morning per finger stick. She then checked with her dexcom, the reading was 170s. She took insulin as directed. While waiting for provider upon arrival, friend reports pt feels hypoglycemic with BS 58. Endorses history of hypoglycemic episodes. Per caregiver last time was about one month ago. MD elicited complaint: cough Related Data Home Medications Medication Instructions Recorded Confirmed albuterol sulfate 2.5 mg/3 mL 2.5 mg inhalation DIRECTED 12/22/19 04/12/22 (0.083 %) solution for nebulization albuterol sulfate 90 mcg/actuation 2 inh inhalation DIRECTED 12/22/19 04/12/22 aerosol inhaler (Ventolin HFA) amitriptyline 25 mg tablet 25 mg PO DAILY 12/22/19 04/12/22 aspirin 81 mg tablet,delayed 81 mg PO DAILY 12/22/19 04/12/22 release carvedilol 3.125 mg tablet 3.125 mg PO DAILY 12/22/19 04/12/22 cyanocobalamin (vitamin B-12) 1,000 mcg PO DAILY 12/22/19 04/12/22 1,000 mcg tablet,extended release dapagliflozin 5 mg-metformin ER 1 tablet PO BID 12/22/19 04/12/22 1,000 mg tablet,extended release 24hr (Xigduo XR) dexlansoprazole 60 mg 60 mg PO DAILY 12/22/19 04/12/22 capsule,biphase delayed release (Dexilant) diazepam 10 mg tablet 10 mg PO DIRECTED 12/22/19 04/12/22 dulaglutide 0.75 mg/0.5 mL 0.5 mg subcut WEEKLY 12/22/19 04/12/22 subcutaneous pen injector (Trulicity) duloxetine 60 mg capsule,delayed 60 mg PO DAILY 12/22/19 04/12/22 release ergocalciferol (vitamin D2) 1,250 1,250 mcg PO DAILY 12/22/19 04/12/22 mcg (50,000 unit) capsule ivabradine 5 mg tablet (Corlanor) 5 mg PO DAILY 12/22/19 04/12/22 levothyroxine 25 mcg tablet 25 mcg PO DAILY 12/22/19 04/12/22 magnesium oxide 400 mg (241.3 mg 400 mg PO DAILY 12/22/19 04/12/22 magnesium) tablet naloxegol 25 mg tablet (Movantik) 25 mg PO DAILY 12/22/19 04/12/22 patiromer calcium sorbitex 8.4 8.4 g PO DAILY 12/22/19 04/12/22 gram oral powder packet (Veltassa) rosuvastatin 5 mg tablet 5 mg PO DAILY 12/22/19 04/12/22 sacubitril 24 mg-valsartan 26 mg 1 tablet PO DAILY 12/22/19 04/12/22 tablet (Entresto) sitagliptin phosphate 100 mg 100 mg PO DAILY 12/22/19 04/12/22 tablet (Januvia) sumatriptan succinate 100 mg tablet 100 mg PO DAILY 12/22/19 04/12/22 theophylline 300 mg 300 mg PO DAILY 12/22/19 04/12/22 tablet,extended release,12 hr valacyclovir 500 mg tablet 500 mg PO DIRECTED 12/22/19 04/12/22 hydrocodone 7.5 mg-acetaminophen 1 tablet PO DAILY 01/21/21 04/12/22 300 mg tablet Allergies Allergy/AdvReac Type Severity Reaction Status Date / Time Penicillins Allergy Swelling Verified 04/12/22 14:36 of Lip/Tongue/Throat Review of Systems Review of Systems: CONSTITUTIONAL: Denies malaise, chills, sweats, fever EYES: Denies visual changes, redness, or discharge ENT: Reports rhinorrhea, congestion, denies sinus pain, otalgia, sore throat CARDIOVASCULAR: Denies chest pain, palpitations, edema RESPIRATORY: Reports cough, post nasal drainage. Denies dyspnea GASTROINTESTINAL: Denies abdominal pain, nausea, vomiting, diarrhea MUSCULOSKELETAL: denies myalgia NEUROLOGIC: Denies headache PMFSH Past Medical History Medical History CHF (congestive heart failure) COPD (chronic obstructive pulmonary disease) Hypertension Pacemaker Surgical History Surgical History (Reviewed 04/12/22 @ 16:
[2022-04-12 15:12] LABS: Glucose Point of Care 85 mg/dl (65-105)
== END 2022-04-12 15:40 | disposition home or self-care (01) ==
PROVIDERS: Emergency Provider Nurse Practitioner Family; PCP Family Medicine
DX: J40 Bronchitis, not specified as acute or chronic (principal); Z87.891 Personal history of nicotine dependence; J44.9 Chronic obstructive pulmonary disease, unspecified; I11.0 Hypertensive heart disease with heart failure; I50.9 Heart failure, unspecified; Z95.0 Presence of cardiac pacemaker
CPT/HCPCS: 71046; 82948; 99213; G0463

== ENCOUNTER 2023-12-15 12:22 | Emergency (ER) | payer OTHER, SELFPAY ==
--- NOTE | ~2023-12-15 | XR_ITS ---
XR chest 2V DATE: 12/15/2023 13:47 INDICATION: Cough TECHNIQUE: 2 views COMPARISON: 04/12/2022 2 view chest FINDINGS: Left transvenous dual-lead pacemaker device with leads in expected position at the right at rium and right ventricle, unchanged since 04/12/2022. Normal heart size. No hilar or mediastinal enlargement is detected. Bilateral hyperinflation suggesting obstructive airways disease. No pulmonary infiltrate or consolida tion, pleural effusion or pulmonary vascular congestion or pneumothorax is detected. Osteopenia. Multiple compression fracture deformities of the thoracic spine are again noted. Dextroscoliosis of the thoracic spine and lumbar levoscoliosis. IMPRESSION: Bilateral hyperinflation suggesting COPD No active cardiopulmonary disease or significant change since 04/12/2022 Reviewed, dictated and finalized at location A.
[2023-12-15 12:32] VITALS: BP 122/79; PULSE 77; RESP 16; TEMP 36.4; O2SAT 97
--- NOTE | 2023-12-15 13:41 | ED.GENADULT ---
HPI - General Adult General Chief complaint: Upper Respiratory Infection Stated complaint: Cough/Shortness of Breath/Chest Burning Source: patient Mode of arrival: ambulatory Limitations: no limitations History of Present Illness HPI narrative: Patient presents for evaluation of sick symptoms for last 2 weeks. Symptoms include a scratchy throat, cough which was initially productive of white/yellow sputum but is now nonproductive, wheezing, shortness of breath, and pleuritic chest pain. No recent sick contacts to her knowledge. She does not smoke. She has an underlying hx of HTN, DM, hyperlipidemia, COPD, and CHF. BS have been running in 150's. She has been using neb treatments two times per day and has also used her albuterol inhaler three times per day. She notes some mild swelling bilateral lower extremities with some purple discoloration to the lower legs Related Data Home Medications Medication Instructions Recorded Confirmed albuterol sulfate 2.5 mg/3 mL 2.5 mg inhalation DIRECTED 12/22/19 04/12/22 (0.083 %) solution for nebulization albuterol sulfate 90 mcg/actuation 2 inh inhalation DIRECTED 12/22/19 04/12/22 aerosol inhaler (Ventolin HFA) amitriptyline 25 mg tablet 25 mg PO DAILY 12/22/19 04/12/22 aspirin 81 mg tablet,delayed 81 mg PO DAILY 12/22/19 04/12/22 release carvedilol 3.125 mg tablet 3.125 mg PO DAILY 12/22/19 04/12/22 cyanocobalamin (vitamin B-12) 1,000 mcg PO DAILY 12/22/19 04/12/22 1,000 mcg tablet,extended release dapagliflozin propaned 5 1 tablet PO BID 12/22/19 04/12/22 mg-metformin ER 1,000 mg tablet, ext rel 24hr (Xigduo XR) dexlansoprazole 60 mg 60 mg PO DAILY 12/22/19 04/12/22 capsule,biphase delayed release (Dexilant) diazepam 10 mg tablet 10 mg PO DIRECTED 12/22/19 04/12/22 dulaglutide 0.75 mg/0.5 mL 0.5 mg subcut WEEKLY 12/22/19 04/12/22 subcutaneous pen injector (Trulicity) duloxetine 60 mg capsule,delayed 60 mg PO DAILY 12/22/19 04/12/22 release ergocalciferol (vitamin D2) 1,250 1,250 mcg PO DAILY 12/22/19 04/12/22 mcg (50,000 unit) capsule ivabradine 5 mg tablet (Corlanor) 5 mg PO DAILY 12/22/19 04/12/22 levothyroxine 25 mcg tablet 25 mcg PO DAILY 12/22/19 04/12/22 magnesium oxide 400 mg (241.3 mg 400 mg PO DAILY 12/22/19 04/12/22 magnesium) tablet naloxegol 25 mg tablet (Movantik) 25 mg PO DAILY 12/22/19 04/12/22 patiromer calcium sorbitex 8.4 8.4 g PO DAILY 12/22/19 04/12/22 gram oral powder packet (Veltassa) rosuvastatin 5 mg tablet 5 mg PO DAILY 12/22/19 04/12/22 sacubitril 24 mg-valsartan 26 mg 1 tablet PO DAILY 12/22/19 04/12/22 tablet (Entresto) sitagliptin phosphate 100 mg 100 mg PO DAILY 12/22/19 04/12/22 tablet (Januvia) sumatriptan succinate 100 mg tablet 100 mg PO DAILY 12/22/19 04/12/22 theophylline 300 mg 300 mg PO DAILY 12/22/19 04/12/22 tablet,extended release,12 hr valacyclovir 500 mg tablet 500 mg PO DIRECTED 12/22/19 04/12/22 hydrocodone 7.5 mg-acetaminophen 1 tablet PO DAILY 01/21/21 04/12/22 300 mg tablet escitalopram oxalate 20 mg tablet mg 12/15/23 finerenone 20 mg tablet (Kerendia) mg 12/15/23 fluticasone fur. 100 mcg-umeclid inhalation 12/15/23 62.5 mcg-vilant 25 mcg inhalat.powder (Trelegy Ellipta) gabapentin 800 mg tablet mg 12/15/23 guaifenesin 600 mg tablet, mg PO 12/15/23 extended release 12 hr icosapent ethyl 1 gram capsule g PO 12/15/23 (Vascepa) ipratropium bromide 0.02 % 12/15/23 solution for inhalation linagliptin 5 mg tablet (Tradjenta) mg 12/15/23 oxycodone-acetaminophen 5 mg-325 tablet 12/15/23 mg tablet sacubitril 24 mg-valsartan 26 mg tablet 12/15/23 tablet (Entresto) Allergies Allergy/AdvReac Type Severity Reaction Status Date / Time Penicillins Allergy Swelling Verified 04/12/22 14:36 of Lip/Tongue/Throat Review of Systems Review of Systems: CONSTITUTIONAL: Denies fever, chills, or sweats. EYES: Denies visual changes, redness, or disc
--- NOTE | 2023-12-15 13:43 | PC.NURSE ---
said normally has bilat. lower leg swelling, it is better today than usual, but more purple in color today than usual. pedal pulses are +. slight swelling noted.
[2023-12-15] MEDS: methylPREDNISolone SOD SUCC 125 MG VIAL IM (13:58)
[2023-12-15] MEDS: IPRATROPIUM 0.5 MG/ALBUTEROL SULFATE 2.5 MG AMPUL.NEB 3 ML INHALATION (13:59)
[2023-12-15 14:25] LABS: EDINFLUASCREEN Negative; EDINFLUBSCREEN Negative; EDSTREPNEGPOS1 Presumptive Negative
== END 2023-12-15 14:41 | disposition home or self-care (01) ==
PROVIDERS: Emergency Provider Nurse Practitioner
DX: J06.9 Acute upper respiratory infection, unspecified (principal); Z20.822 Contact with and (suspected) exposure to COVID-19; Z87.891 Personal history of nicotine dependence; I11.0 Hypertensive heart disease with heart failure; I50.9 Heart failure, unspecified; J44.9 Chronic obstructive pulmonary disease, unspecified; E11.9 Type 2 diabetes mellitus without complications; E78.5 Hyperlipidemia, unspecified; Z95.0 Presence of cardiac pacemaker
CPT/HCPCS: 71046; 87081; 87426; 87804; 87880; 96372; 99213; G0463; J2919

== ENCOUNTER 2024-04-24 13:50 | Emergency (ER) | payer OTHER, SELFPAY ==
--- NOTE | ~2024-04-24 | XR_ITS ---
XR chest 2V Ordering provider: Rosa Lewis APRN History: 73 years Female with . cough,sob . Comparison: December 15, 2023 FINDINGS: MEDIASTINUM: Normal cardiac size and position. Left bipolar pacemaker unchanged. Congestive [place]. Lungs: No effusions or pneumothorax. Opacity in the right suprahilar area which may be focal atelectasis or pneumonia. Follow-up advised. Underlying emphysematous changes. OTHER: No free air under the diaphragm. Degenerative changes of the spine. IMPRESSION: Opacity in the right suprahilar area which may be focal atelectasis or pneumonia. Follow-up advised. Otherwise no acute cardiopulmonary pathology. Reviewed, dictated and finalized at location A. ISTICAL CLERK IMPRESSION: Opacity in the right suprahilar area which may be focal atelectasis or pneumoni a. Follow-up advised. Otherwise no acute cardiopulmonary pathology.
[2024-04-24 14:09] VITALS: BP 94/56; PULSE 74; RESP 20; TEMP 36.6; O2SAT 100
--- NOTE | 2024-04-24 14:31 | ED_ITS ---
HPI - URI/Sore Throat General Chief Complaint: Upper Respiratory Infection Stated Complaint: Chest Pain When Cough Source: patient Mode of arrival: ambulatory Limitations: no limitations History of Present Illness HPI Narrative: 73 y/o female with hx chf, copd, diabetes, HTN presented for c/o cough and shortness of breath for several days. States she was admitted to the hospital for pneumonia 2 weeks ago. Since discharge she was seen by pcp for f/u 04/11, pt was given steroid and abx at that time. States she still feels like she has fluid on lungs and that the pneumonia is not resolved. Says cough is worse, p ainful with deep breath, voice is hoarse, cough is productive of yellow and pendleton sputum, and reports feeling dizzy at times. States she does not feel as bad as when she was admitted. Denies chest pain, palpitations, n/v/d/f/c. Related Data Home Medications Medication Instructions Recorded Confirmed albuterol sulfate 2.5 mg/3 mL 2.5 mg inhalation DIRECTED 12/22/19 04/24/24 (0.083 %) solution for nebulization albuterol sulfate 90 mcg/actuation 2 inh inhalation DIRECTED 12/22/19 04/24/24 aerosol inhaler (Ventolin HFA) amitriptyline 25 mg tablet 25 mg PO DAILY 12/22/19 04/24/24 aspirin 81 mg tablet,delayed 81 mg PO DAILY 12/22/19 04/24/24 release carvedilol 3.125 mg tablet 3.125 mg PO DAILY 12/22/19 04/24/24 cyanocobalamin (vitamin B-12) 1,000 mcg PO DAILY 12/22/19 04/24/24 1,000 mcg tablet,extended release dapagliflozin propaned 5 1 tablet PO BID 12/22/19 04/24/24 mg-metformin ER 1,000 mg tablet, ext rel 24hr (Xigduo XR) dulaglutide 0.75 mg/0.5 mL 0.5 mg subcut WEEKLY 12/22/19 04/24/24 subcutaneous pen injector (Trulicity) duloxetine 60 mg capsule,delayed 60 mg PO DAILY 12/22/19 04/24/24 release ergocalciferol (vitamin D2) 1,250 1,250 mcg PO DAILY 12/22/19 04/24/24 mcg (50,000 unit) capsule ivabradine 5 mg tablet (Corlanor) 5 mg PO DAILY 12/22/19 04/24/24 levothyroxine 25 mcg tablet 25 mcg PO DAILY 12/22/19 04/24/24 magnesium oxide 400 mg (241.3 mg 400 mg PO DAILY 12/22/19 04/24/24 magnesium) tablet naloxegol 25 mg tablet (Movantik) 25 mg PO DAILY 12/22/19 04/24/24 rosuvastatin 5 mg tablet 5 mg PO DAILY 12/22/19 04/24/24 sacubitril 24 mg-valsartan 26 mg 1 tablet PO DAILY 12/22/19 04/24/24 tablet (Entresto) sitagliptin phosphate 100 mg 100 mg PO DAILY 12/22/19 04/24/24 tablet (Januvia) sumatriptan succinate 100 mg tablet 100 mg PO DAILY 12/22/19 04/24/24 theophylline 300 mg 300 mg PO DAILY 12/22/19 04/24/24 tablet,extended release,12 hr valacyclovir 500 mg tablet 500 mg PO DIRECTED 12/22/19 04/24/24 finerenone 20 mg tablet (Kerendia) 20 mg PO DAILY 12/15/23 04/24/24 fluticasone fur. 100 mcg-umeclid See Rx Instructions .Route .COMPLEX 12/15/23 04/24/24 62.5 mcg-vilant 25 mcg inhalat.powder (Trelegy Ellipta) icosapent ethyl 1 gram capsule See Rx Instructions .Route .COMPLEX 12/15/23 04/24/24 (Vascepa) ipratropium bromide 0.02 % See Rx Instructions .Route .COMPLEX 12/15/23 04/24/24 solution for inhalation linagliptin 5 mg tablet (Tradjenta) 5 mg PO DAILY 12/15/23 04/24/24 escitalopram oxalate 20 mg tablet 20 mg PO DAILY 04/24/24 04/24/24 gabapentin 800 mg tablet 800 mg PO TID 04/24/24 04/24/24 levothyroxine 50 mcg tablet 50 mcg PO DAILY 04/24/24 04/24/24 theophylline 400 mg 400 mg PO DAILY 04/24/24 04/24/24 tablet,extended release 24 hr Allergies Allergy/AdvReac Type Severity Reaction Status Date / Time Penicillins Allergy Swelling Verified 04/24/24 14:18 of Lip/Tongue/Throat Review of Systems Review of Systems: CONSTITUTIONAL: Denies body aches, fever, chills, or sweats. EYES: Denies visual changes, redness, or discharge. ENT: Denies rhinorrhea, congestion, sore throat, or otalgia. CARDIOVASCULAR: Denies chest pain, palpitations, or edema. RESPIRATORY: Reports cough, sob, wheezing. GASTROINTESTINAL: Denies abdominal pain, nausea, vomiting, or diarrhea. SKIN: Denies rash NEUROLOGIC: Denies headache, numbness, tingling, or weakness. All systems reviewed & are unremarkable except as noted in HPI and below PMFSH Past Medical History Medical History CHF (congestive heart failure) COPD (chronic obstructive pulmonary disease) Diabetes Hyperlipidemia Hypertension Pacemaker Surgical History Surgical History History of back surgery History of foot surgery History of hysterectomy History of surgery on wrist Family History Family History Mother Family history non-contributory Other Heart disease Hypertension Social History Social History Smoking status: Former smoker Alcohol intake: current Substance use: never Living arrangements: alone Gender identity (if verbalized by the patient): Female Sexual Orientation (if Verbalized by the Patient): Straight or Heterosexual Spiritual care concerns: No Comments At time of signature, I have reviewed and agree with nursing past medical, surgical, social and family history unless otherwise noted. Please see nursing chart for further information. There is no relevant family history pertinent to the presenting complaint Exam Narrative: GENERAL: mildly ill-appearing, in no acute distress. EYES: EOMI. No redness or drainage. Conjunctivae normal. ENT: Mucous membranes pink and moist. No rhinorrhea. TMs normal bilaterally. Throat normal. Uvula midline. NECK: Normal AROM. Supple. CHEST: No respiratory distress. Wheezing noted to all renae. Speaks full sentences. HEART: Regular rate and rhythm. No murmur appreciated. ABDOMEN: Soft, nontender, nondistended, normal active bowel sounds. SKIN: Warm, dry, yellow bruising over right eyebrow with scab approx 0.5cm. Capillary refill normal. Normal skin turgor. EXT: Bilateral lower extremity edema 2+, pt says better than normal. NEURO: Alert and oriented x3. Gait steady with cane Course Course Emergency Course: Patient is aware of diagnosis, understands and agrees to treatment plan. Anticipatory guidance given. Patient agrees to follow-up as directed and is aware of reasons to seek care at the emergency department. Portions of this record may have been created with voice recognition software Level of Care: Express Care Visit Vital Signs Vital signs: Vital Signs Temperature 98 F 04/24/24 14:09 Pulse Rate 74 04/24/24 14:09 Respiratory Rate 20 04/24/24 14:09 Blood Pressure 94/56 L 04/24/24 14:09 Pulse Oximetry 100 04/24/24 14:09 Temperature 98 F 04/24/24 14:09 Pulse Rate 74 04/24/24 14:09 Respiratory Rate 20 04/24/24 14:09 Blood Pressure 94/56 L 04/24/24 14:09 Pulse Oximetry 100 04/24/24 14:09 MDM - URI/Sore Throat MDM Narrative Medical decision making narrative: Discussed physical exam findings and CXR. Advised ER transfer as pt has been hospitalized for pneumonia and had additional treatment with abx and steroids since discharge. However she refuses eR at this time. The patient is clinically sober, AA&Ox3, free from distracting injury. 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 Given the patients presentation, we communicated our concern for pneumonia in laymans terms. The patient verbalized an understanding. The patient is aware the evaluation is incomplete & many troublesome conditions have not been r/o. We have discussed the need for further ED evaluation. We have discussed the range of possible dx, potential testing & treatment options. Our discussions included the potential outcomes of leaving AMA, including worsening of their condition, becoming permanently disabled/in pain/critically ill, or . Despite these efforts, we were unable to convince the pt to go to the ER. We have attempted to offer tx/rx/guidance for any dangerous conditions which are most likely and/or dangerous. We have answered all questions and have implored t he patient to go to ER [facility] to complete the w/u. A staff member witnessed the patient consenting to AMA. Differential Diagnosis Differential diagnosis: Likely upper respiratory infection, sinusitis, viral infection, bronchitis and other (pneumonia) Imaging Data Radiologist's impression: Patient: Kary Bellamy : 1950 MR#: [id number] Age: 73 Acct:[id number] Loc: [facility] ADM Date: 04/24/24Attending Dr: Ordering Physician: Rosa Lewis APRN Date of Service: 04/24/24 Procedure(s): XR chest 2V Accession Number(s): [id number] cc: Rosa Lewis APRN; Marilia, Liz Price DO~ XR chest 2V Ordering provider: Rosa Lewis APRN History: 73 years Female with . cough,sob . Comparison: December 15, 2023 FINDINGS: MEDIASTINUM: Normal cardiac size and position. Left bipolar pacemaker unchanged. Congestive [place]. Lungs: No effusions or pneumothorax. Opacity in the right suprahilar area which may be focal atelectasis or pneumonia. Follow-up advised. Underlying emphysematous changes. OTHER: No free air under the diaphragm. Degenerative changes of the spine. IMPRESSION: Opacity in the right suprahilar area which may be focal atelectasis or pneumonia. Follow-up advised. Otherwise no acute cardiopulmonary pathology. Reviewed, dictated and finalized at location A. EDIENT MIXER Dictated By: Dez Devlin MD 04/24/24 1506 Signed By: <Electronically signed by Dez Devlin MD in [place]> 04/24/24 1526 Discharge Plan Discharge Clinical Impression: Pneumonia Patient Disposition: Left Against Medical Advice Condition: Stable Instructions: Antibiotic Form, Pneumonia (ED) Additional Instructions: You were advised to transfer to the ER and you decline at this time. You were made aware of the risk of refusal including worsening of your condition and . Report to the ER immediately by calling 911 for any worsening symptoms. Pneumonia is a lung infection that can cause a fever, cough, and trouble breathing. How it spreads: When someone with bacterial pneumonia coughs, sneezes, or talks, they release respiratory droplets into the air that can be inhaled by others.?You can also get pneumonia by touching a contaminated surface or object and then touching your mouth or nose. You're generally contagious for around 48 hours after starting antibiotics and your fever goes away.? To prevent the spread of pneumonia, you can:? ? Get vaccinated? ? Wash your hands often with soap and water for 20 seconds? ? Cover your mouth with a tissue when you cough or sneeze? ? Avoid people who are already sick with pneumonia? ? Stay home when you have pneumonia Take antibiotics as directed until complete. eat small frequent meals. Get lots of rest and drink fluids. Alternate Tylenol and ibuprofen for pain/fever [id number] cough medication can cause drowsiness, take according to package directions If you have nasal congestion, you can take Zyrtec, Claritin along with Flonase spray Call your Primary Care Doctor and make a follow-up appointment in 3 days. Go to the ER for worsening symptoms or concerns Prescriptions: New levofloxacin 750 mg tablet 750 mg PO DAILY Qty: 7 0RF methylprednisolone [Medrol (Shakeel)] 4 mg tablets,dose pack See Rx Instructions .ROUTE .COMPLEX Qty: 21 0RF Rx Instructions: orally per package directions No Action ipratropium bromide 0.02 % solution See Rx Instructions .ROUTE .COMPLEX Rx Instructions: as prescribed Tradjenta 5 mg tablet 5 mg PO DAILY icosapent ethyl [Vascepa] 1 gram capsule See Rx Instructions .ROUTE .COMPLEX Rx Instructions: as prescribed Trelegy Ellipta 100-62.5-25 mcg blister with device See Rx Instructions .ROUTE .COMPLEX Rx Instructions: as prescribed Kerendia 20 mg tablet 20 mg PO DAILY cyanocobalamin (vitamin B-12) 1,000 mcg tablet extended release 1,000 mcg PO DAILY albuterol sulfate 2.5 mg /3 mL (0.083 %) solution for nebulization 2.5 mg inhalation DIRECTED Rx Instructions: as prescribed sumatriptan succinate 100 mg tablet 100 mg PO DAILY valacyclovir 500 mg tablet 500 mg PO DIRECTED aspirin 81 mg tablet,delayed release (DR/EC) 81 mg PO DAILY carvedilol 3.125 mg tablet 3.125 mg PO DAILY theophylline 300 mg tablet extended release 12 hr 300 mg PO DAILY levothyroxine 25 mcg tablet 25 mcg PO DAILY amitriptyline 25 mg tablet 25 mg PO DAILY magnesium oxide 400 mg (241.3 mg magnesium) tablet 400 mg PO DAILY ergocalciferol (vitamin D2) 1,250 mcg (50,000 unit) capsule 1,250 mcg PO DAILY albuterol sulfate [Ventolin HFA] 90 mcg/actuation HFA aerosol inhaler 2 inh INHALATION DIRECTED rosuvastatin 5 mg tablet 5 mg PO DAILY duloxetine 60 mg capsule,delayed release(DR/EC) 60 mg PO DAILY Januvia 100 mg tablet 100 mg PO DAILY ivabradine [Corlanor] 5 mg tablet 5 mg PO DAILY Trulicity 0.75 mg/0.5 mL pen injector 0.5 mg SUBCUT WEEKLY dapaglifloz propaned-metformin [Xigduo XR] 5-1,000 mg tablet, IR - ER, biphasic 24hr 1 tablet PO BID Movantik 25 mg tablet 25 mg PO DAILY Entresto 24-26 mg tablet 1 tablet PO DAILY gabapentin 800 mg Tablet 800 mg PO TID escitalopram oxalate 20 mg Tablet 20 mg PO DAILY levothyroxine 50 mcg Tablet 50 mcg PO DAILY theophylline 400 mg Tablet Extended Release 24 Hr 400 mg PO DAILY Follow-up/Referrals: Marilia,Liz Price DO [Primary Care Provider] - Time of Disposition: 15:40
== END 2024-04-24 15:40 | disposition left against medical advice (07) ==
PROVIDERS: Emergency Provider Nurse Practitioner Family; PCP Student in an Organized Health Care Education/Training Program
DX: J18.9 Pneumonia, unspecified organism (principal); I11.0 Hypertensive heart disease with heart failure; I50.9 Heart failure, unspecified; E11.9 Type 2 diabetes mellitus without complications; J44.9 Chronic obstructive pulmonary disease, unspecified; E78.5 Hyperlipidemia, unspecified; Z95.0 Presence of cardiac pacemaker; Z79.82 Long term (current) use of aspirin
CPT/HCPCS: 71046; 99213; G0463

== ENCOUNTER 2024-07-10 13:38 | Emergency (ER) | payer OTHER, SELFPAY ==
--- OUTSIDE RECORDS SUMMARY | 2024-07-10 13:40 | XMS_ITS | Encounter Summary ---
Author Organization [facility] Address [address] [place] [address] Phone Care Team Providers Care Business Project Manager Name Role Phone Quang Locke DO Unavailable [phone] Keith Craft MD Primary Care Provider Silvio Schulte MD Unavailable [phone] Werner Swift MD Unavailable Liz Capellan DO Primary Care Provider [phone] Reason for Visit * Reason Comments Medication Refill Encounter Details Date Type Department Care Team (Late st Contact Info) Description 08/05/2023 Refill [facility] [address] [place] [phone] Keith Craft MD [address] [place] [address] Medication Refill Social History Tobacco Use Types Packs/Day Years Used Date Smoking Tobacco: Former Cigarettes 2 50 1 - 03/16/2018 Smokeless Tobacco: Never Comments:Still uses nictoine patches and gum Alcohol Use Standard Drinks/Week Comments No 0 (1 standard drink = 0.6 oz pur e alcohol) [facility] Utilities Answer Date Recorded In the past 12 months has th e electric, gas, oil, or water company threatened to shut off services in your home? No 07/13/2023 Social Connection and Isolation Panel [NHANES] A nswer Date Recorded In a typical week, how many times do you talk on the phone with family, friends, or neighbors? Never 07/13/19 How often do you get togethe r with friends or relatives? Never 07/13/2023 How often do you attend chur ch or spiritism services? Never 07/13/2023 Do you belong to any clubs o r organizations such as mormonism groups, unions, fraternal or athletic groups, or school groups? No 07/13/2023 How often do you attend meet ings of the clubs or organizations you belong to? Never 07/13/2023 Are you , , di vorced, , never , or living with a partner? Living with partner 07/13/2023 AUDIT-C Answer Date Recorded Q1: How often do you have a drink containing alcohol? Never 07/13/2023 Q2: How many drinks containi ng alcohol do you have on a typical day when you are drinking? Patient does not drink Q3: How often do you have si x or more drinks on one occasion? Never 07/13/2023 Overall Financial Resource Strain (CARDIA) Answe r Date Recorded How hard is it for you to pa y for the very basics like food, housing, medical care, and heating? Not hard at all 07/13/2023 PHQ-2 Answer Date Recorded Total Score - Questions 1-9 0 /0 08/2021 [facility] Occupat ional Health - Occupational Stress Questionnaire Answer Date Recorded Do you feel stress - tense, restless, nervous, or anxious, or unable to sleep at night because your mind is troubled all the time - these days? Not at all 07/13/2023 Exercise Vital Sign Answer Date Recorde d On average, how many days pe r week do you engage in moderate to strenuous exercise (like a brisk walk)? 0 days 07/13/2023 On average, how many minutes do you engage in exercise at this level? 0 min 07/13/2023 Hunger Vital Sign Answer Date Recorded Within the past 12 months, y ou worried that your food would run out before you got the money to buy more. Never true 07/13/19 24 Within the past 12 months, t he food you bought just didn't last and you didn't have money to get more. Never true 07/13/2023 PRAPARE - Transportation Answer Date Re corded In the past 12 months, has l ack of transportation kept you from medical appointments or from getting medications? No 06/27 In the past 12 months, has l ack of transportation kept you from meetings, work, or from getting things needed for daily living? No 07/13/2023 Housing Stability Vital Sign Answer Richar e Recorded In the last 12 months, was t here a time when you were not able to pay the mortgage or rent on time? No 07/13/2023 In the last 12 months, how many places have you lived? 1 07/13/2023 In the last 12 months, was t here a time when you did not have a steady place to sleep or slept in a mcc (including now)? No 07/13/2023 Education Answer Date Recorded What is the highest level of school you have completed or the highest degree you have received? 12th grade 06/06/2022 Sexually Active Control Partners Comments Not Currently Male Comments No Sex and Gender Information Value Date Recorded Sex Assigned at Not on file Legal Sex Female 11:08 PM CDT Gender Identity Not on file Sexual Orientation Not on file Occupation Industry Job Start Date Job End Date disability Not on file Not on file Not on file documented as of this encounter Miscellaneous Notes * Telephone Encounter - Glorai Cornejo RN - 08/05/2023 3:31 PM CDT Medication failed the protocol, provider to review and approve the medication order if appropriate. Requested Prescriptions Pending Prescriptions Disp Refills escitalopram (LEXAPRO) 20 MG Tablet [Pharmacy Med Name: ESCITALOPRAM OXALATE 20MG TABLET] 90 Tablet1 Sig: TAKE 1 TABLET BY MOUTH DAILY. SSRI (6 Month Refill Only) Protocol Failed - 08/05/2023 12:40 PM Failed - Patient has established therapy with SSRI for at least 6 months Passed - Visit with relevant provider in past 6 months or upcoming 90 days Recent Visits Date Type Provider Dept 05/02/23 Office Visit Keith Craft MD [facility] 04/12/23 Office Visit Keith Craft MD [facility] Showing recent visits within past 182 days and meeting all other requirements Future Appointments Date Type Provider Dept 08/15/23 Appointment Keith Craft MD [facility] Showing future appointments within next 90 days and meeting all other requirements Passed - Has an encounter in the past 6 months with a depression, anxiety, adjustment disorder, OCD, or PTSD visit diagnosis Movantik 25 MG Tablet [Pharmacy Med Name: MOVANTIK 25MG TABLET] 30 Tablet 3 Sig: TAKE ONE (1) TABLET BY MOUTH EVERY MORNING (BEFORE BREAKFAST). Not Delegated - Naloxone Protocol Failed - 08/05/2023 12:40 PM Failed - This refill cannot be delegated Passed - Visit with relevant provider in past 12 months or upcoming 90 days Recent Visits Date Type Provider Dept 05/02/23 Office Visit Keith Craft MD [facility] 04/12/23 Office Visit Keith Craft MD [facility] 12/10/22 Office Visit Keith Craft MD [facility] 09/10/22 Office Visit Keith Craft MD [facility] Showing recent visits within past 365 days and meeting all other requirements Future Appointments Date Type Provider Dept 08/15/23 Appointment Keith Carft MD [facility] Showing future appointments within next 90 days and meeting all other requirements rosuvastatin (CRESTOR) 20 MG Tablet [Pharmacy Med Name: ROSUVASTATIN CALCIUM 20MG TABLET] 90 Tablet1 Sig: TAKE ONE (1) TABLET BY MOUTH NIGHTLY. Hmg CoA Reductase Inhibitors Protocol Passed - 08/05/2023 12:40 PM Passed - Visit with relevant provider in past 12 months or upcoming 90 days Recent Visits Date Type Provider Dept 05/02/23 Office Visit Keith Craft MD [facility] 04/12/23 Office Visit Keith Craft MD [facility] 12/10/22 Office Visit Keith Craft MD [facility] 09/10/22 Office Visit Keith Craft MD [facility] Showing recent visits within past 365 days and meeting all other requirements Future Appointments Date Type Provider Dept 08/15/23 Appointment Keith Craft MD [facility] Showing future appointments within next 90 days and meeting all other requirements Passed - Lipid panel in past 12 months LDL Date Value Ref Range Status 12/17/2022 37 5 - 130 mg/dL Final 05/07/2022 18 0 - 130 mg/dL Final HDL CHOLESTEROL Date Value Ref Range Status 12/17/2022 60.4 >40 mg/dL Final CHOLESTEROL Date Value Ref Range Status 12/17/2022 117 <200 mg/dL Final TRIGLYCERIDES Date Value Ref Range Status 12/17/2022 96 <150 mg/dL Final VLDL Date Value Ref Range Status 12/17/2022 19 5 - 55 mg/dL Final CHOL/HDL RATIO Date Value Ref Range Status 12/17/2022 1.9 0.0 - 4.4 Final NON-HDL CHOLESTEROL Date Value Ref Range Status 12/17/2022 56.6 <130 mg/dL Final Passed - CMP in past 12 months SODIUM Date Value Ref Range Status 07/27/2023 130 (L) 136 - 145 mmol/L Final POTASSIUM Date Value Ref Range Status 07/27/2023 4.0 3.5 - 5.1 mmol/L Final CHLORIDE Date Value Ref Range Status 07/27/2023 99 98 - 107 mmol/L Final CO2, VENOUS Date Value Ref Range Status 07/27/2023 21 (L) 22 - 30 mmol/L Final ANION GAP Date Value Ref Range Status 07/27/2023 14.0 <18.0 mmol/L Final GLUCOSE Date Value Ref Range Status 07/27/2023 148 (H) 70 - 99 mg/dL Final BUN Date Value Ref Range Status 07/27/2023 19 10 - 20 mg/dL Final CREATININE, BLOOD Date Value Ref Range Status 07/27/2023 0.98 0.60 - 1.00 mg/dL Final BUN/CREATININE RATIO Date Value Ref Range Status 07/27/2023 19 12 - 20 ratio Final TOTAL PROTEIN Date Value Ref Range Status 07/27/2023 6.3 6.3 - 8.2 g/dL Final ALBUMIN Date Value Ref Range Status 07/27/2023 3.3 (L) 3.5 - 5.0 g/dL Final A/G RATIO Date Value Ref Range Status 07/27/2023 1.1 1.0 - 2.2 Final CALCIUM Date Value Ref Range Status 07/27/2023 8.7 8.7 - 10.5 mg/dL Final T BILI Date Value Ref Range Status 07/27/2023 0.3 0.2 - 1.2 mg/dL Final SGOT (AST) Date Value Ref Range Status 07/27/2023 16 5 - 34 U/L Final SGPT (ALT) Date Value Ref Range Status 07/27/2023 16 0 - 55 U/L Final ALKALINE PHOSPHATASE Date Value Ref Range Status 07/27/2023 90 40 - 150 U/L Final GFR, EST. NONAFRICAN Date Value Ref Range Status 07/27/2023 56 (L) >=60 Final GFR, EST. Date Value Ref Range Status 07/27/2023 >60 >=60 Final GFR, ESTIMATED Date Value Ref Range Status 07/27/2023 >60 >=60 Final Comment: Creatinine Clearance is the preferred criteria for selecting drug dose adjustments in renally impaired patients. The GFR is provided as additional pertinent clinical information. GFR is reported in mL/min/1.73 sq m. Calculation based on the Chronic Kidney Disease Epidemiology Collaboration (CKD- EPI) equation refitwithout adjustment for race. IS THE PATIENT REQUIRED TO BE FASTING? Date Value Ref Range Status 12/17/2022 No Final ergocalciferol (VITAMIN D) 57184 UNIT Capsule [Pharmacy Med Name: VITAMIN D [id number] CAPSULE] 12 Capsule 0 Sig: TAKE ONE CAPSULE BY MOUTH ONE TIME WEEKLY Vitamin Supplements (Adult) Protocol Failed - 08/05/2023 12:40 PM Failed - Vitamin D dose not greater than 1.25mg Passed - Visit with relevant provider in past 12 months or upcoming 90 days Recent Visits Date Type Provider Dept 05/02/23 Office Visit Keith Craft MD [facility] 04/12/23 Office Visit Keith Craft MD [facility] 12/10/22 Office Visit Keith Craft MD [facility] 09/10/22 Office Visit Keith Craft MD [facility] Showing recent visits within past 365 days and meeting all other requirements Future Appointments Date Type Provider Dept 08/15/23 Appointment Keith Craft MD [facility] Showing future appointments within next 90 days and meeting all other requirements DULoxetine (CYMBALTA) [address] Particles [Pharmacy Med Name: DULOXETINE HYDROCHLORIDE 60MG CAPSULE DR PART] 90 Capsule 1 Sig: TAKE ONE (1) CAPSULE BY MOUTH DAILY. TAKE WITH 30 MG CAPSULE SNRI (6 Month Refill Only) Protocol Passed - 08/05/2023 12:40 PM Passed - Visit with relevant provider in past 6 months or upcoming 90 days Recent Visits Date Type Provider Dept 05/02/23 Office Visit Keith Craft MD [facility] 04/12/23 Office Visit Keith Craft MD [facility] Showing recent visits within past 182 days and meeting all other requirements Future Appointments Date Type Provider Dept 08/15/23 Appointment Keith Craft MD [facility] Showing future appointments within next 90 days and meeting all other requirements Passed - Has an encounter in the past 6 months with a depression or anxiety visit diagnosis Passed - Patient has established therapy with Serotonin-Norepinephrine Reuptake Inhibitors for at least 6 months amitriptyline (ELAVIL) 25 MG Tablet [Pharmacy Med Name: AMITRIPTYLINE HYDROCHLORIDE 25MG TABLET] 90Tablet 1 Sig: TAKE ONE (1) TABLET BY MOUTH NIGHTLY. Not Delegated - Tricyclic Agents Protocol Failed - 08/05/2023 12:40 PM Failed - This refill cannot be delegated Passed - Visit with relevant provider in past 12 months or upcoming 90 days Recent Visits Date Type Provider Dept 05/02/23 Office Visit Keith Craft MD [facility] 04/12/23 Office Visit Keith Craft MD [facility] 12/10/22 Office Visit Keith Craft MD [facility] 09/10/22 Office Visit Keith Craft MD [facility] Showing recent visits within past 365 days and meeting all other requirements Future Appointments Date Type Provider Dept 08/15/23 Appointment Keith Craft MD [facility] Showing future appointments within next 90 days and meeting all other requirements linagliptin (Tradjenta) 5 MG Tablet [Pharmacy Med Name: TRADJENTA 5MG TABLET] 90 Tablet 0 Sig: TAKE ONE (1) TABLET BY MOUTH DAILY DPP-4 Inhibitors Protocol Passed - 08/05/2023 12:40 PM Passed - Visit with relevant provider in past 6 months or upcoming 90 days Recent Visits Date Type Provider Dept 05/02/23 Office Visit Keith Craft MD [facility] 04/12/23 Office Visit Keith Craft MD [facility] Showing recent visits within past 182 days and meeting all other requirements Future Appointments Date Type Provider Dept 08/15/23 Appointment Keith Craft MD [facility] Showing future appointments within next 90 days and meeting all other requirements Passed - HgA1C on record in the past 6 months HGB-A1C Date Value Ref Range Status 04/12/2023 6.4 (A) 4 - 6 % Final HGB-A1C Date Value Ref Range Status 07/13/2023 6.0 4.0 - 6.0 % Final Passed - GFR on record in past 6 months GFR, EST. NONAFRICAN Date Value Ref Range Status 07/27/2023 56 (L) >=60 Final documented in this encounter Plan of Treatment Upcoming Encounters Date Type Department Care Team (Late st Contact Info) Description 07/13/2024 1:30 PM SEQUENCING MACHINE OPERATOR Office Visit [facility] - Family Medicine - [place] [address] [place] [address] Liz Capellan, DO [address] [address] 07/20/2024 2:15 PM SEQUENCING MACHINE OPERATOR Office Visit [facility] - Endocrinology - [place] [address] [place] [address] Ana Vivar, HARVEST WORKER, PARTS PROFESSIONAL 2 [facility] [address] [place] [address] Yasmin Restrepo MD #[address] [phone] 07/31/2024 1:00 PM SEQUENCING MACHINE OPERATOR Appointment [facility] [address] [place] [phone] Werner Swift MD [address] [place] [phone] Discharge Disposition: Discharged to home or Selfcare 08/03/2024 1:15 PM CDT Office Visit [facility] - Pulmonology & Sleep Medicine [facility] [address] [place] [phone] Werner Swift MD [address] [place] [phone] 09/02/2024 2:00 PM CDT Appointment [facility] Respiratory Therapy 1 [place] [phone] Werner Swift MD [address] [place] [phone] Discharge Disposition: Discharged to home or Selfcare 10/09/2024 2:30 PM CDT [facility] [address] [place] [phone] Liz Capellan, DO [address] [id number] documented as of this encounter Goals Goal Patient Goal Type Associated Problems Recent Progress Patient-Stated? Author Chronic Disease Management Chronic Disease Management On track(2022 10:36 AM CDT) Bri Turcios, RN Note: Goal: I will effectively manage my COPD at home, by following regimen prescribed by my doctor, minimizing hospitalizations in the next three months. Anticipated Completion Date:March Patient's Preferred Goal: Highest Priority Challenges/Barriers: Missing Medications Readiness to change: Ready to change Notify Care Team if: You experience increasing shortness of breath, fever, productive cough, wheezing, decreased appetite or activity intolerance Short Term Goals: -I will adhere to the medication regimen prescribed by my doctor: I will take prescribed nebulizer and inhaler when symptoms arise. I will wear my oxygen, as prescribed. -I will avoid environmental triggers: Triggers that may worsen my breathing include smoking, allergens, dust, fragrances or pet dander. -I will be proactive in my care: I will use pursed lip breathing when experiencing shortness of breath and take breaks between activities. I will monitor my symptoms daily and refer to the COPD Zones/Action plan education. I will notify my Accountant Supervisor if my symptoms fall in the y ellow zone . I will consider receiving an influenza and pneumonia vaccination, if applicable. -I will call the office if I experience any symptoms listed above to discuss at home management options. documented as of this encounter Visit Diagnoses Diagnosis Anxiety and depression Dysthymic disorder Insomnia, unspecified type documented in this encounter Additional Health Concerns Infection Onset Date Last Indicated Resolved Time Stenotrophomonas maltophilia Comment:Must have a follow up respiratory sample to remove isolation flag. 10/20/2021 10/20/2021 Respiratory Rule Out - RPA 03/17/2024 03/17/2024 1 3:36 PM CDT COVID - 19 04/27/2024 04/27/2024 04/27/2024 2:19 PM SEQUENCING MACHINE OPERATOR Assessment Noted Time PHQ-9 Depression Total Score: 1 03/07/20 21 10:29 AM CDT documented as of this encounter Care Teams Business Project Manager Relationship Specialty Start Date End Date Keith Craft MD PCP - General Family Medicine 01/14/19 12/26/23 Liz Capellan DO 2 [facility] [place] [address] PCP - General Family Medicine 12/27/23 Quang Locke DO Gastroenterology 01/18/16 [place] [id number] [address] 05/25/21 Werner Swift MD [address] [place] [address] Consulting Physician Pulmonary Disease 01/30/22 documented as of this encounter
--- OUTSIDE RECORDS SUMMARY | 2024-07-10 13:40 | XMS_ITS | Encounter Summary ---
Author Organization [facility] Address [address] [place] [address] Phone Care Team Providers Care Warehouse Delivery Driver Name Role Phone Quang Locke Unavailable [phone] Keith Craft MD Primary Care Provider [phone] Bri Rollins RN Unavailable Unavailable Silvio Schulte MD Unavailable [phone] Bri Rollins RN Unavailable Unavailable Werner Swift MD Unavailable Liz Capellan DO Primary Care Provider [phone] Reason for Visit * Reason Onset Date Comments Medication Refill 01/06/2022 Encounter Details Date Type Department Care Team (Late st Contact Info) Description 01/06/2022 Telephone [facility] [address] [place] [address] Keith Craft MD [address] [place] [address] Medication Refill Social History Tobacco Use Types Packs/Day Years Used Date Smoking Tobacco: Former Cigarettes 2 50 1 - 03/16/2018 Smokeless Tobacco: Never Comments:Still uses nictoine patches and gum Alcohol Use Standard Drinks/Week Comments No 0 (1 standard drink = 0.6 oz pur e alcohol) PHQ-2 Answer Date Recorded Total Score - Questions 1-9 0 08/2021 Sexually Active Control Partners Comments Not Currently [...] encounter Miscellaneous Notes * Telephone Encounter - Vee Alan RN - 01/06/2022 9:39 AM CDT Patient calling to request refill of [place]. Pharmacy verified. States she will get a delivery from the pharmacy on Saturday, which should be the fill date of thismedication. States her appointment to be seen by Keith Craft MD was changed from end of November to February by KATEY Swain. BSN. [facility] was told no need to be seen until then. Patient asking if there is anything needed for this order to be refilled? Please review documented in this encounter Plan of Treatment Upcoming Encounters Date Type Department Care Team (Late st Contact Info) Description 07/13/2024 1:30 PM BLUEPRINT DUPLICATOR Office Visit [facility] - Family Medicine - [place] [address] [place] [address] Liz Capellan, DO [address] [address] 07/20/2024 2:15 PM BLUEPRINT DUPLICATOR Office Visit [facility] - Endocrinology - [place] [address] [place] [address] Ana Vivar, CRANE ENGINEER, NEWSPAPER CARRIER 2 [facility] [address] [place] [address] Yasmin Restrepo MD #[address] [phone] 07/31/2024 1:00 PM BLUEPRINT DUPLICATOR [facility] [address] [place] [phone] Werner Swift MD [address] [place] [phone] Discharge Disposition: Discharged to home or Selfcare 08/03/2024 1:15 PM CDT [facility] [address] [place] [phone] Werner Swift MD [address] [place] [phone] 09/02/2024 2:00 PM CDT [facility]ointment [facility] Res[facility] [address] [place] [phone] Werner Swift MD [address] [place] [phone] Discharge Disposition: Discharged to home or Selfcare 10/09/2024 2:30 PM CDT Office Visit [facility] [address] [place] [phone] Liz Capellan, DO [address] [id number] documented as of this encounter Goals Goal [...] Zones/Action plan education. I will notify my Plating Operator if my symptoms fall in the y ellow zone . I will consider receiving an influenza and pneumonia vaccination, if applicable. -I will call the office if I experience any symptoms listed above to discuss at home management options. documented as of this encounter Visit Diagnoses Not on filedocumented in this encounter Additional Health Concerns Infection Onset Date Last Indicated Resolved Time Stenotrophomonas maltophilia Comment:Must have a follow up respiratory sample to remove isolation flag. 10/20/2021 10/20/2021 COVID - 19 04/20/2022 04/20/2022 04/30/2022 12:1 8 AM BLUEPRINT DUPLICATOR COVID - 19 07/18/2022 07/18/2022 07/28/2022 12:1 6 AM BLUEPRINT DUPLICATOR COVID - 19 08/21/2022 08/21/2022 08/22/2022 8:31 AM CDT Respiratory Rule Out - RPA 08/21/2022 08/21/2022 0 08/22/2022 3:21 PM CDT COVID - 19 04/18/2023 04/18/2023 04/28/2023 12:1 6 AM BLUEPRINT DUPLICATOR COVID - 19 07/13/2023 07/13/2023 07/23/2023 12:1 6 AM BLUEPRINT DUPLICATOR Respiratory Rule Out - RPA 03/17/2024 03/17/2024 1 3:36 PM CDT COVID - 19 04/27/2024 04/27/2024 04/27/2024 2:19 PM BLUEPRINT DUPLICATOR Assessment Noted Time PHQ-9 Depression Total Score: 1 03/07/20 21 10:29 AM CDT documented as of this encounter Care Teams Warehouse Delivery Driver Relationship Specialty Start Date End Date Keith Craft MD PCP - General Family Medicine 01/14/19 12/26/23 Liz Capellan DO [address] [address] PCP - General Family Medicine 12/27/23 Quang Locke DO Gastroenterology 01/18/16 Bri Rollins, RN [place] Plating Operator 03/07/21 05/22/23 [place] [id number] [address] 05/25/21 Bri Rollins RN [place] Nurse Plating Operator 03/07/21 05/23/23 Werner Swift MD [address] [place] [address] Consulting Physician Pulmonary Disease 01/30/22 documented as of this encounter
--- OUTSIDE RECORDS SUMMARY | 2024-07-10 13:40 | XMS_ITS | Encounter Summary ---
Author Organization [facility] Address [address] [place] [address] Phone Care Team Providers Care Electric Crane Operator Name Role Phone Quang Locke Unavailable [phone] Keith Craft MD Primary Care Provider [phone] Bri Rollins RN Unavailable Unavailable Silvio Schulte MD Unavailable [phone] Bri Rollins RN Unavailable Unavailable Werner Swift MD Unavailable Liz Capellan DO Primary Care Provider [phone] Reason for Visit * Reason Comments Medication Refill Encounter Details Date Type Department Care Team (Late st Contact Info) Description 01/31/2022 Refill [facility] - [facility] Medicine [facility] [place] [address] [place] [address] Keith Craft MD [address] [place] [address] Medication Refill Social History Tobacco Use Types [...] file Not on file Not on file COVID-19 Exposure Response Date Recorded In the last 10 days, have yo u been in contact with someone who was confirmed or suspected to have Coronavirus/COVID-19? No / Unsure 01/30/2022 1:09 PM CDT documented as of this encounter Miscellaneous Notes * Telephone Encounter - Kelin Nance RN - 02/01/2022 10:01 AM CDT PDMP and MEDD reviewed. Dispensed 01/03/22 as a 30-day supply Medication failed the protocol, provider to review and approve the medication order if appropriate. Requested Prescriptions Pending Prescriptions Disp Refills diazePAM (VALIUM) 5 MG Tablet [Pharmacy Med Name: DIAZEPAM 5MG TABLET] 30 Tablet 0 Sig: TAKE ONE (1) TABLET BY MOUTH DAILY NEEDED FOR ANXIETY. Not Delegated - Benzodiazepines Protocol Failed - 01/31/2022 4:56 PM Failed - This refill cannot be delegated Passed - Visit with relevant provider in past 12 months or upcoming 90 days Recent Visits Date Type Provider Dept 11/03/21 Office Visit Keith Craft MD [facility] 10/19/21 Office Visit Keith Craft MD [facility] 10/05/21 Office Visit Keith Craft MD [facility] 09/08/21 Office Visit Brie Denis, NICOLE [facility] 08/14/21 Office Visit Keith Craft MD [facility] 07/31/21 Office Visit Keith Craft MD [facility] 05/25/21 Office Visit Marcin Anderson, EARTH OBSERVATIONS CHIEF SCIENTIST, SENIOR IT RECRUITER [facility] 05/05/21 Office Visit Cira Brie Palma, PAC [facility] 04/14/21 Office Visit Keith Craft MD [facility] 03/23/21 Office Visit Keith Craft MD [facility] Showing recent visits within past 365 days and meeting all other requirements Future Appointments Date Type Provider Dept 03/09/22 Appointment Keith Craft MD [facility] Showing future appointments within next 90 days and meeting all other requirements documented in this encounter Plan of Treatment Upcoming Encounters Date Type Department Care Team (Late st Contact Info) Description 07/13/2024 1:30 PM PHYSICIAN PRACTICE COORDINATOR Office Visit [facility] - Family Medicine - [place] [address] [place] [address] Liz Capellan L, DO [address] [address] 07/20/2024 2:15 PM PHYSICIAN PRACTICE COORDINATOR Office Visit [facility] - Endocrinology - [place] [address] [place] [address] Ana Vivar, EARTH OBSERVATIONS CHIEF SCIENTIST, SENIOR IT RECRUITER [address] [address] Yasmin Restrepo MD #[address] [address] 07/31/2024 1:00 PM PHYSICIAN PRACTICE COORDINATOR [facility] [address] [place] [phone] Werner Swift MD [address] [place] [address] Discharge Disposition: Discharged to home or Selfcare 08/03/2024 1:15 PM CDT Office Visit [facility] - Pulmonology & Sleep Medicine - [place] [address] [place] [address] Werner Swift MD [address] [place] [address] 09/02/2024 2:00 PM CDT Appointment [facility] Respiratory Therapy 1 [place] [address] Werner Swift MD [address] [place] [address] Discharge Disposition: Discharged to home or Selfcare 10/09/2024 2:30 PM CDT Office Visit [facility] Family Medicine [facility] [place] [address] [place] [address] Liz Capellan, DO [address] [address] documented as of this encounter Goals Goal [...] Zones/Action plan education. I will notify my Product Management Intern if my symptoms fall in the y ellow zone . I will consider receiving an influenza and pneumonia vaccination, if applicable. -I will call the office if I experience any symptoms listed above to discuss at home management options. documented as of this encounter Visit Diagnoses Diagnosis Anxiety and depression Dysthymic disorder documented in this encounter Additional Health Concerns Infection Onset Date Last Indicated Resolved Time Stenotrophomonas maltophilia Comment:Must have a follow up respiratory sample to remove isolation flag. 10/20/2021 10/20/2021 COVID - 19 04/20/2022 04/20/2022 04/30/2022 12:1 8 AM PHYSICIAN PRACTICE COORDINATOR COVID - 19 07/18/2022 07/18/2022 07/28/2022 12:1 6 AM PHYSICIAN PRACTICE COORDINATOR COVID - 19 08/21/2022 08/21/2022 08/22/2022 8:31 AM CDT Respiratory Rule Out - RPA 08/21/2022 08/21/2022 0 08/22/2022 3:21 PM CDT COVID - 19 04/18/2023 04/18/2023 04/28/2023 12:1 6 AM PHYSICIAN PRACTICE COORDINATOR COVID - 19 07/13/2023 07/13/2023 07/23/2023 12:1 6 AM PHYSICIAN PRACTICE COORDINATOR Respiratory Rule Out - RPA 03/17/2024 03/17/2024 1 3:36 PM CDT COVID - 19 04/27/2024 04/27/2024 04/27/2024 2:19 PM PHYSICIAN PRACTICE COORDINATOR Assessment Noted Time PHQ-9 Depression Total Score: 1 03/07/20 21 10:29 AM CDT documented as of this encounter Care Teams Electric Crane Operator Relationship Specialty Start Date End Date Keith Craft MD PCP - General Family Medicine 01/14/19 12/26/23 Liz Capellan DO 2 [facility]. [address] [place] [address] PCP - General Family Medicine 12/27/23 Quang Locke DO Gastroenterology 01/18/16 Bri Rollins, KATEY [place] Product Management Intern 03/07/21 05/22/23 [place] [id number] [address] 05/25/21 Bri Rollins, [place]ATE[place] Nurse Product Management Intern 03/07/21 05/23/23 Werner Swift MD [address] [place] [address] Consulting Physician Pulmonary Disease 01/30/22 documented as of this encounter
--- OUTSIDE RECORDS SUMMARY | 2024-07-10 13:40 | XMS_ITS | Encounter Summary ---
Author Organization [facility] Address [address] [place] [address] Phone Care Team Providers Care Transportation Department Head Name Role Phone Quang Locke Unavailable [phone] Keith Craft MD Primary Care Provider [phone] Bri Rollins RN Unavailable Unavailable Silvio Schulte MD Unavailable [phone] Bri Rollins RN Unavailable Unavailable Werner Swift MD Unavailable Liz Capellan DO Primary Care Provider Reason for Visit * Reason Comments Medication Refill Encounter Details Date Type Department Care Team (Late st Contact Info) Description 11/30/2021 Refill [facility] [address] [place] [address] Keith Craft MD [address] [place] [address] Medication Refill Social History Tobacco Use Types [...] suspected to have Coronavirus/COVID-19? No / Unsure 11/28/2021 1:20 PM CDT documented as of this encounter Miscellaneous Notes * Telephone Encounter - Elida Williamson RN - 11/30/2021 1:24 PM CDT Medication failed the protocol, provider to review and approve the medication order if appropriate. PDMP 11/02/21 Elida DEL TORO Requested Prescriptions Pending Prescriptions Disp Refills diazePAM (VALIUM) 5 MG Tablet [Pharmacy Med Name: DIAZEPAM 5MG TABLET] 30 Tablet 0 Sig: TAKE ONE (1) TABLET BY MOUTH DAILY NEEDED FOR ANXIETY. Not Delegated - Benzodiazepines Protocol Failed - 11/30/2021 10:17 AM Failed - This refill cannot be delegated Passed - Visit with relevant provider in past 12 months or upcoming 90 days Recent Visits Date Type Provider Dept 11/03/21 Office Visit Keith Craft MD [facility] 10/19/21 Office Visit Keith Craft MD [facility] 10/05/21 Office Visit Keith Craft MD [facility] 09/08/21 Office Visit Brie Denis, NICOLE [facility] 08/14/21 Office Visit Keith Craft MD [facility] 07/31/21 Office Visit Keith Craft MD [facility] 05/25/21 Office Visit Marcin Anderson APRN, ETIOLOGIST [facility] [place] 05/05/21 Office Visit Brie Denis PAC [facility] 04/14/21 Office [facility] 03/23[facility]21 Office Visit Keith Craft MD [facility] Showing recent visits within past 365 days and meeting all other requirements Future Appointments Date Type Provider Dept 12/19/21 Appointment Keith Craft MD [facility] Showing future appointments within next 90 days and meeting all other requirements documented in this encounter Plan of Treatment Upcoming Encounters Date Type Department Care Team (Late st Contact Info) Description 07/13/2024 1:30 PM LINEN ROOM WORKER Office Visit [facility] - Family Medicine - [place] [address] [place] [address] Liz Capellan, DO [address] [address] 07/20/2024 2:15 PM LINEN ROOM WORKER Office Visit [facility] - Endocrinology - [place] [address] [place] [address] Ana Vivar, DRILL SHARPENER, ETIOLOGIST [address] [address] Yasmin Restrepo MD #[address] [phone] 07/31/2024 1:00 PM LINEN ROOM WORKER [facility] [address] [place] [address] Werner Swift MD [address] [place] [address] Discharge Disposition: Discharged to home or Selfcare 08/03/2024 1:15 PM CDT Office Visit [facility] - Pulmonology & Sleep Medicine - [place] [address] [place] [address] Werner Swift MD [address] [place] [address] 09/02/2024 2:00 PM CDT Appointment [facility] Respiratory Therapy 1 [place] [address] Werner Swift MD [address] [place] [address] Discharge Disposition: Discharged to home or Selfcare 10/09/2024 2:30 PM CDT Office Visit [facility] Family Medicine - [place] [address] [place] [address] Liz Capellan, DO [address] [address] documented as of this encounter Goals Goal [...] Zones/Action plan education. I will notify my Dinkey Motor Operator if my symptoms fall in the [...] 19 04/20/2022 04/20/2022 04/30/2022 12:1 8 AM LINEN ROOM WORKER COVID - 19 07/18/2022 07/18/2022 07/28/2022 12:1 6 AM LINEN ROOM WORKER COVID - 19 08/21/2022 08/21/2022 08/22/2022 8:31 AM CDT Respiratory Rule Out - RPA 08/21/2022 08/21/2022 0 08/22/2022 3:21 PM CDT COVID - 19 04/18/2023 04/18/2023 04/28/2023 12:1 6 AM LINEN ROOM WORKER COVID - 19 07/13/2023 07/13/2023 07/23/2023 12:1 6 AM LINEN ROOM WORKER Respiratory Rule Out - RPA 03/17/2024 03/17/2024 1 3:36 PM CDT COVID - 19 04/27/2024 04/27/2024 04/27/2024 2:19 PM LINEN ROOM WORKER Assessment Noted Time PHQ-9 Depression Total Score: 1 03/07/20 21 10:29 AM CDT documented as of this encounter Care Teams Transportation Department Head Relationship Specialty Start Date End Date Keith Craft MD PCP - General Family Medicine 01/14/19 12/26/23 Liz Capellan DO [address] [facility]. [address] [place] [address] PCP - General Family Medicine 12/27/23 Quang Locke DO Gastroenterology 01/18/16 Bri Rollins RN [place] Dinkey Motor Operator 03/07/21 05/22/23 [place] [address] [address] 05/25/21 Bri Rollins RN [place] Nurse Dinkey Motor Operator 03/07/21 05/23/23 Werner Swift MD #[address] [place] [address] Consulting Physician Pulmonary Disease 01/30/22 documented as of this encounter
--- OUTSIDE RECORDS SUMMARY | 2024-07-10 13:40 | XMS_ITS | Encounter Summary ---
Author Organization [facility] Address [address] [place] [address] Phone Care Team Providers Care Employee Communications Specialist Name Role Phone Quang Locke DO Unavailable [phone] Keith Craft MD Primary Care Provider [phone] Silvio Schulte MD Unavailable [phone] Werner Swift MD Unavailable Liz Capellan DO Primary Care Provider [phone] Reason for Visit * Reason Comments Medication Refill Encounter Details Date Type Department Care Team (Late st Contact Info) Description 08/07/2023 Refill [facility] Family Medicine [facility] [address] [place] [address] Keith Craft MD [address] [place] [address] Medication Refill Social History Tobacco Use Types Packs/Day Years Used Date Smoking Tobacco: Former Cigarettes 2 50 1 - 03/16/2018 Smokeless Tobacco: Never Comments:Still uses nictoine patches and gum Alcohol Use Standard Drinks/Week Comments No 0 (1 standard drink = 0.6 oz pur e alcohol) [facility] Utilities Answer Date Recorded In the past [...] often do you attend chur ch or scientology services? Never 07/13/2023 Do you belong to any clubs o r organizations such as buddhist groups, unions, fraternal or athletic groups, or [...] Score - Questions 1-9 0 /0 08/2021 [facility] [place] of Occupat ional Health - Occupational Stress [...] place to sleep or slept in a long term (including now)? No 07/13/2023 Education Answer Date [...] encounter Miscellaneous Notes * Telephone Encounter - Gloria Cornejo RN - 08/07/2023 1:56 PM CDT PDMP 07/12/23 - pharmacy closed on due date/SUN - post to SAT Medication failed the protocol, provider to review and approve the medication order if appropriate. Requested Prescriptions Pending Prescriptions Disp Refills diazePAM (VALIUM) 5 MG Tablet [Pharmacy Med Name: DIAZEPAM 5MG TABLET] 30 Tablet 0 Sig: TAKE 1 TABLET BY MOUTH DAILY NEEDED FOR ANXIETY Not Delegated - Benzodiazepines Protocol Failed - 08/07/2023 1:14 PM Failed - This refill cannot be [...] 90 days and meeting all other requirements levothyroxine (SYNTHROID) 50 MCG Tablet [Pharmacy Med Name: LEVOTHYROXINE SODIUM 50MCG TABLET] 90 Tablet 2 Sig: TAKE ONE TABLET BY MOUTH DAILY Thyroid Hormones Protocol Passed - 08/07/2023 1:14 PM Passed - Visit with relevant provider [...] and meeting all other requirements Passed - Normal TSH in past 12 months TSH Date Value Ref Range Status 12/17/2022 0.764 0.300 - 5.000 mIU/L Final valACYclovir (VALTREX) 500 MG Tablet [Pharmacy Med Name: VALACYCLOVIR HYDROCHLORIDE 500MG TABLET] 90 Tablet 2 Sig: TAKE ONE TABLET BY MOUTH EVERY DAY AT NIGHT Not Delegated - Herpes Agents Protocol Failed - 08/07/2023 1:14 PM Failed - This refill cannot be delegated Passed - Visit with relevant provider in past 12 months or upcoming 90 days Recent Visits Date Type Provider Dept 05/02/23 Office Visit Keith Craft MD [facility] 04/12/23 Office Visit Keith Craft MD [facility] 12/10/22 Office Visit Keith Craft MD [facility] 09/10/22 Office Visit Keith Craft MD [facility] Showing recent visits within past 365 days and meeting all other requirements Future Appointments Date Type Provider Dept 08/15/23 Appointment Keith Craft MD [facility] Showing future appointments within next 90 days and meeting all other requirements documented in this encounter Plan of Treatment Upcoming Encounters Date Type Department Care Team (Late st Contact Info) Description 07/13/2024 1:30 PM MISSILE AND MISSILE CHECKOUT TECHNICIAN Office Visit [facility] Medical [facility] - Family Medicine - [place] [address] [place] [address] Liz Capellan, DO [address] [address] 07/20/2024 2:15 PM MISSILE AND MISSILE CHECKOUT TECHNICIAN Office Visit [facility] - Endocrinology - [place] [address] [place] [address] Ana Vivar, DAIRY ASSOCIATE, COMPOSITION BOARD PRESS OPERATOR [address] [address] Yasmin Restrepo MD #[address] [address] 07/31/2024 1:00 PM MISSILE AND MISSILE CHECKOUT TECHNICIAN [facility] [address] [place] [address] Werner Swift MD [address] [place] [address] Discharge Disposition: Discharged to home or Selfcare 08/03/2024 1:15 PM CDT Office Visit [facility] - Pulmonology & Sleep Medicine [facility] [address] [place] [address] Werner Swift MD [address]2 [place] [address] 09/02/2024 2:00 PM CDT Appointment [facility] Respiratory Therapy 1 [place] [address] Werner Swift MD [address] [place] [address] Discharge Disposition: Discharged to home or Selfcare 10/09/2024 2:30 PM CDT Office Visit [facility] Family Medicine [facility] [address] [place] [address] Liz Capellan, DO [address] [address] documented as of this encounter Goals Goal [...] Zones/Action plan education. I will notify my Steamboat Captain if my symptoms fall in the y ellow zone . I will consider receiving an influenza and pneumonia vaccination, if applicable. -I will call the office if I experience any symptoms listed above to discuss at home management options. documented as of this encounter Visit Diagnoses Diagnosis Anxiety and depression Dysthymic disorder Acquired hypothyroidism Unspecified hypothyroidism documented in this encounter Additional Health Concerns Infection Onset Date Last Indicated Resolved Time Stenotrophomonas maltophilia Comment:Must have a follow up respiratory sample to remove isolation flag. 10/20/2021 10/20/2021 Respiratory Rule Out - RPA 03/17/2024 03/17/2024 1 3:36 PM CDT COVID - 19 04/27/2024 04/27/2024 04/27/2024 2:19 PM MISSILE AND MISSILE CHECKOUT TECHNICIAN Assessment Noted Time PHQ-9 Depression Total Score: 1 03/07/20 21 10:29 AM CDT documented as of this encounter Care Teams Employee Communications Specialist Relationship Specialty Start Date End Date Keith Craft MD PCP - General Family Medicine 01/14/19 12/26/23 Liz Capellan DO [address] [address] PCP - General Family Medicine 12/27/23 Quang Locke DO Gastroenterology 01/18/16 [place] [address] [address] 05/25/21 Werner Swift MD [address] [place] [address] Consulting Physician Pulmonary Disease 01/30/22 documented as of this encounter
--- OUTSIDE RECORDS SUMMARY | 2024-07-10 13:40 | XMS_ITS | Encounter Summary ---
Author Organization [facility] Address [address] [place] [address] Phone Care Team Providers Care Coconut Boiler Name Role Phone Quang Locke Unavailable [phone] Silvio Schulte MD Unavailable [phone] Werner Swift MD Unavailable Liz Capellan DO Primary Care Provider [phone] Encounter Details Date Type Department Care Team (Late st Contact Info) Description 04/30/2024 Home Health Resumpti on of Care Planning [facility] [address] [place] [address] Social History Tobacco Use Types Packs/Day Years Used Date Smoking Tobacco: Former Cigarettes 2 50 1 - 03/16/2018 Smokeless Tobacco: Never Comments:Still uses nictoine patches and gum Alcohol Use Standard Drinks/Week Comments No 0 (1 standard drink = 0.6 oz pur e alcohol) [facility] Utilities Answer Date Recorded In the past 12 months has [employer] e electric, gas, oil, or water company threatened to shut off services in your home? Patient declined 04/27/2024 Social Connection and Isolation Panel [NHANES] A nswer Date Recorded In a typical week, how many times do you talk on the phone with family, friends, or neighbors? Patient declined 04/27/2024 How often do you get togethe r with friends or relatives? Patient declined 04/27/2024 How often do you attend protestant or orthodox serv ices? Patient declined 04/27/2024 Do you belong to any clubs o r organizations such as protestant groups, unions, fraternal or athletic groups, or school groups? Patient declined 04/27/2024 How often do you attend meet ings of the clubs or organizations you belong to? Patient declined 04/27/2024 Are you , , di vorced, , never , or living with a partner? Patient declined 04/27/2024 AUDIT-C Answer Date Recorded Q1: How often do you have a drink containing alc ohol? Patient declined 04/27/2024 Q2: How many drinks containi ng alcohol do you have on a typical day when you are drinking? Patient declined 04/27/2024 Q3: How often do you have si x or more drinks on one occasion? Patient declined 04/27/2024 Overall Financial Resource Strain (CARDIA) Answe r Date Recorded How hard is it for you to pa y for the very basics like food, housing, medical care, and heating? Patient declined 04/27/2024 PHQ-2 Answer Date Recorded Total Score - Questions 1-9 4 10/25 [facility] - Occupational Stress Questionnaire Answer Date Recorded Do you feel stress - tense, restless, nervous, or anxious, or unable to sleep at night because your mind is troubled all the time - these days? Patient declined 04/27/2024 Exercise Vital Sign Answer Date Recorde d On average, how many days pe r week do you engage in moderate to strenuous exercise (like a brisk walk)? Patient declined On average, how many minutes do you engage in exercise at this level? Patient declined 04/27/2024 Hunger Vital Sign Answer Date Recorded Within the past 12 months, y ou worried that your food would run out before you got the money to buy more. Patient declined Within the past 12 months, t he food you bought just didn't last and you didn't have money to get more. Patient declined 06/2023 PRAPARE - Transportation Answer Date Re corded In the past 12 months, has l ack of transportation kept you from medical appointments or from getting medications? Patient declined 04/27/2024 In the past 12 months, has l ack of transportation kept you from meetings, work, or from getting things needed for daily living? Patient declined 04/27/2024 Housing Stability Vital Sign Answer Richar e [...] place to sleep or slept in a detention (including now)? No 07/13/2023 Housing Stability Vital Sign Answer Richar e Recorded In the last 12 months, was t here a time when you were not able to pay the mortgage or rent on time? Patient declined 04/27/20 In the past 12 months, how m any times have you moved where you were living? 1 04/27/2024 At any time in the past 12 m [facility], were you homeless or living in a detention (including now)? Patient declined 04/27/2024 Education Answer Date Recorded What is the [...] on file documented as of this encounter Plan of Treatment Upcoming Encounters Date Type Department Care Team (Late st Contact Info) Description 07/13/2024 1:30 PM MATERNITY NURSE Office Visit [facility] - Family Medicine [facility] [address] [place] [address] Liz Capellan, DO [address] [place] [address] 07/20/2024 2:15 PM MATERNITY NURSE Office Visit [facility] - Endocrinology [facility] [address] [place] [phone] Ana Vivar, WET PRIMER POWDER BLENDER, DOCUMENTATION LIAISON 2 [facility]. [address] [place] [address] Yasmin Restrepo MD #[address] [phone] 07/31/2024 1:00 PM MATERNITY NURSE [facility] [address] [place] [phone] Werner Swift MD [address] [place] [address] Discharge Disposition: Discharged to home or Selfcare 08/03/2024 1:15 PM CDT Office Visit [facility] - Pulmonology & Sleep Medicine [facility] [address] [place] [address] Werner Swift MD [address] [place] [phone] 09/02/2024 2:00 PM CDT [facility]ment [facility] Res[facility] [address] [place] [phone] Werner Swift MD [address] [place] [address] Discharge Disposition: Discharged to home or Selfcare 10/09/2024 2:30 PM CDT [facility] Visit [facility] - Family Medicine [facility] [address] [place] [address] Liz Capellan DO [address] [place] [address] documented as of this encounter Goals Goal Patient Goal Type Associated Problems Recent Progress Patient-Stated? Author Chronic Disease Management Chronic Disease Management On track(2022 10:36 AM CDT) Bri Turcios RN Note: Goal: I will effectively manage [...] Zones/Action plan education. I will notify my Marine Cargo Inspector if my symptoms fall in the y [...] sample to remove isolation flag. 10/20/2021 10/20/2021 Assessment Noted Time PHQ-9 Depression Total Score: 4 11/08/19 24 9:33 AM CDT documented as of this encounter Care Teams Coconut Boiler Relationship Specialty Start Date End Date Liz Capellan DO [address], [facility]. [address] [place] [address] PCP - General Family Medicine 12/27/23 Quang Locke DO Gastroenterology 01/18/16 [place] [id number] [address] 05/25/21 Werner Swift MD [address] [place] [phone] Consulting Physician Pulmonary Disease 01/30/22 documented as of this encounter
--- OUTSIDE RECORDS SUMMARY | 2024-07-10 13:40 | XMS_ITS | Encounter Summary ---
Author Organization [facility] Address [address] [place] [address] Phone Care Team Providers Care Admeasurer Name Role Phone Quang Locke DO Unavailable [phone] Keith Craft MD Primary Care Provider Silvio Schulte MD Unavailable [phone] Werner Swift MD Unavailable Liz Capellan DO Primary Care Provider [phone] Reason for Visit * Reason Comments Medication Refill Encounter Details Date Type Department Care Team (Late st Contact Info) Description 08/07/2023 [facility]ill [facility] [address] [place] [phone] Keith Craft MD [address] [place] [address] Medication Refill Social History Tobacco Use Types Packs/Day Years Used Date Smoking Tobacco: Former Cigarettes 2 50 1 - 03/16/2018 Smokeless Tobacco: Never Comments:Still uses nictoine patches and gum Alcohol Use Standard Drinks/Week Comments No 0 (1 standard drink = 0.6 oz pur e alcohol) [facility] Utilities Answer Date Recorded In the [...] often do you attend chur ch or zoroastrianism services? Never 07/13/2023 Do you belong to any clubs o r organizations such as yazidism groups, unions, fraternal or athletic groups, or [...] Score - Questions 1-9 0 /0 08/2021 [facility] - Occupational Stress [...] place to sleep or slept in a [place] [facility] [place] facility (including now)? No 07/13/2023 Education Answer Date [...] Telephone Encounter - Gloria Cornejo RN - 08/08/2023 9:36 AM CDT Medication failed the protocol, provider to review and approve the medication order if appropriate. Requested Prescriptions Pending Prescriptions Disp Refills theophylline (THEOCHRON) 400 MG TABLET SR 24 HR [Pharmacy Med Name: THEOPHYLLINE ER 400MG ER TABLETER 24HR] 90 Tablet 3 Sig: TAKE ONE (1) CAPSULE BY MOUTH DAILY. Not Delegated - Theophyllines Protocol Failed - 08/07/2023 3:10 PM Failed - This refill cannot be [...] st Contact Info) Description 07/13/2024 1:30 PM CHAINSTITCH BINDER [facility] - [place] [address] [place] [address] Liz Capellan, DO [address] [address] 07/20/2024 2:15 PM CHAINSTITCH BINDER Office Visit [facility] - Endocrinology - [place] [address] [place] [address] Ana Vivar, PRIMER INSERTING MACHINE OPERATOR, LEAD SQL DEVELOPER [address] [address] Yasmin Restrepo MD #[address] [address] 07/31/2024 1:00 PM CHAINSTITCH BINDER [facility] [address] [place] [address] Werner Swift MD [address] [place] [address] Discharge Disposition: Discharged to home or Selfcare 08/03/2024 1:15 PM CDT Office Visit [facility] - Pulmonology & Sleep Medicine [facility] [address] [place] [address] Werner Swift MD [address] [place] [address] 09/02/2024 2:00 PM CDT Appointment [facility] Respiratory Therapy [address] [place] [address] Werner Swift MD [address] [place] [address] Discharge Disposition: Discharged to home or Selfcare 10/09/2024 2:30 PM CDT Office Visit [facility] Family Medicine [facility] [address] [place] [address] Liz Capellan, DO [address] [address] documented as of this encounter Goals Goal [...] Zones/Action plan education. I will notify my Transplant Worker if my symptoms fall in the y ellow zone . I will consider receiving an influenza and pneumonia vaccination, if applicable. -I will call the office if I experience any symptoms listed above to discuss at home management options. documented as of this encounter Visit Diagnoses Diagnosis Pulmonary emphysema, unspecified emphysema type (HCC) documented in this encounter Additional Health Concerns Infection Onset Date Last Indicated Resolved Time Stenotrophomonas maltophilia Comment:Must have a follow up respiratory sample to remove isolation flag. 10/20/2021 10/20/2021 Respiratory Rule Out - RPA 03/17/2024 03/17/2024 1 3:36 PM CDT COVID - 19 04/27/2024 04/27/2024 04/27/2024 2:19 PM CHAINSTITCH BINDER Assessment Noted Time PHQ-9 Depression Total Score: 1 03/07/20 21 10:29 AM CDT documented as of this encounter Care Teams Admeasurer Relationship Specialty Start Date End Date Keith Craft MD PCP - General Family Medicine 01/14/19 12/26/23 Liz Capellan DO [address] [address] PCP - General Family Medicine 12/27/23 Quang Locke DO Gastroenterology 01/18/16 [place] [id number] [address] 05/25/21 Werner Swift MD [address] [place] [address] Consulting Physician Pulmonary Disease 01/30/22 documented as of this encounter
--- OUTSIDE RECORDS SUMMARY | 2024-07-10 13:40 | XMS_ITS | Encounter Summary ---
Author Organization [facility] Address [address] [place] [address] Phone Care Team Providers Care Dewer Name Role Phone Quang Locke Unavailable [phone] Keith Craft MD Primary Care Provider [phone] Bri Rollins RN Unavailable Unavailable Silvio Schulte MD Unavailable [phone] Bri Rollins RN Unavailable Unavailable Werner Swift MD Unavailable Liz Capellan DO Primary Care Provider [phone] Reason for Visit * Reason Comments Medication Refill Encounter Details Date Type Department Care Team (Late st Contact Info) Description 12/04/2021 Refill [facility] - [facility] Medicine [facility] [address] [place] [address] Keith Craft MD [address] [place] [address] Medication Refill Social History Tobacco Use Types [...] Telephone Encounter - Gloria Cornejo RN - 12/05/2021 1:35 PM CDT PDMP 11/08/21 Medication failed the protocol, provider to review and approve the medication order if appropriate. Requested Prescriptions Pending Prescriptions Disp Refills HYDROcodone-acetaminophen (NORCO) 7.5-325 MG Tablet [Pharmacy Med Name: HYDROCODONE/ACETAMINOPHEN 7.5-325 TABLET] 60 Tablet 0 Sig: TAKE ONE (1) TABLET BY MOUTH TWO (2) TIMES DAILY NEEDED FOR SEVERE PAIN. Not Delegated - Opioid Combinations Protocol Failed - 12/04/2021 4:38 PM Failed - This refill cannot be delegated Passed - Visit with relevant provider in past 12 months or upcoming 90 days Recent Visits Date Type Provider Dept 11/03/21 Office Visit Keith Craft MD [facility] 10/19/21 Office Visit Keith Craft MD [facility] 10/05/21 Office Visit Keith Craft MD [facility] 09/08/21 Office [facility] Brie Denis PAC [facility] 08/14/21 Office Visit Keith Craft MD [facility] 07/31/21 Office Visit Keith Craft MD [facility] 05/25/21 Office Visit Marcin Anderson, TIPPING MACHINE OPERATOR AUTOMATIC, MESS ATTENDANT CREW [facility] 05/05/21 [facility]21 Office Visit Keith Craft MD [facility] [address] 03/23/21 Office Visit Keith Craft MD [facility] [address] Showing recent visits within past 365 days and meeting all other requirements Future Appointments Date Type Provider Dept 12/19/21 Appointment Keith Craft MD [facility] [address] Showing future appointments within next 90 days and meeting all other requirements documented in this encounter Plan of Treatment Upcoming Encounters Date Type Department Care Team (Late st Contact Info) Description 07/13/2024 1:30 PM ASSISTANT SECRETARY Office Visit [facility] - Family Medicine - [place] [address] [place] [address] Liz Capellan, DO [address] [address] 07/20/2024 2:15 PM ASSISTANT SECRETARY Office Visit [facility] - Endocrinology - [place] [address] [place] [address] Ana Vivar, TIPPING MACHINE OPERATOR AUTOMATIC, MESS ATTENDANT CREW [address] [address] Yasmin Restrepo MD #[address] [address] 07/31/2024 1:00 PM ASSISTANT SECRETARY [facility] [address] [place] [address] Werner Swift MD [address] [place] [address] Discharge Disposition: Discharged to home or Selfcare 08/03/2024 1:15 PM CDT Office Visit [facility] - Pulmonology & Sleep Medicine [facility] [address] [place] [address] Werner Swift MD [address] [place] [address] 09/02/2024 2:[address] [facility] Respiratory Therapy [address] [place] [address] Werner Swift MD [address] [place] [address] Discharge Disposition: Discharged to home or Selfcare 10/09/2024 2:30 PM CDT Office Visit [facility] Family Medicine [facility] [address] [place] [address] Liz Capellan, DO [address] [address] documented as of this encounter Goals Goal [...] Zones/Action plan education. I will notify my Break Out Man if my symptoms fall in the y ellow zone . I will consider receiving an influenza and pneumonia vaccination, if applicable. -I will call the office if I experience any symptoms listed above to discuss at home management options. documented as of this encounter Visit Diagnoses Diagnosis Chronic low back pain, unspecified back pain laterality, unspecified whether sciatica present documented in this encounter Additional Health Concerns Infection Onset Date Last Indicated Resolved Time Stenotrophomonas maltophilia Comment:Must have a follow up respiratory sample to remove isolation flag. 10/20/2021 10/20/2021 COVID - 19 04/20/2022 04/20/2022 04/30/2022 12:1 8 AM ASSISTANT SECRETARY COVID - 19 07/18/2022 07/18/2022 07/28/2022 12:1 6 AM ASSISTANT SECRETARY COVID - 19 08/21/2022 08/21/2022 08/22/2022 8:31 AM CDT Respiratory Rule Out - RPA 08/21/2022 08/21/2022 0 08/22/2022 3:21 PM CDT COVID - 19 04/18/2023 04/18/2023 04/28/2023 12:1 6 AM ASSISTANT SECRETARY COVID - 19 07/13/2023 07/13/2023 07/23/2023 12:1 6 AM ASSISTANT SECRETARY Respiratory Rule Out - RPA 03/17/2024 03/17/2024 1 3:36 PM CDT COVID - 19 04/27/2024 04/27/2024 04/27/2024 2:19 PM ASSISTANT SECRETARY Assessment Noted Time PHQ-9 Depression Total Score: 1 03/07/20 21 10:29 AM CDT documented as of this encounter Care Teams Dewer Relationship Specialty Start Date End Date Keith Craft MD PCP - General Family Medicine 01/14/19 12/26/23 Liz Capellan DO 2 [facility] [address] [address] PCP - General Family Medicine 12/27/23 Quang Locke DO Gastroenterology 01/18/16 Bri Rollins, RN [place] Break Out Man 03/07/21 05/22/23 [place] [address] [address] 05/25/21 Bri Rollins, RN [place] Nurse Break Out Man 03/07/21 05/23/23 Werner Swift MD [address] [place] [address] Consulting Physician Pulmonary Disease 01/30/22 documented as of this encounter
--- OUTSIDE RECORDS SUMMARY | 2024-07-10 13:40 | XMS_ITS | Encounter Summary ---
Author Organization [facility] Address [address] [place] [address] Phone Care Team Providers Care Senior Pl Sql Developer Name Role Phone Quang Locke Unavailable Keith Craft MD Primary Care Provider [phone] Bri Rollins RN Unavailable Unavailable Silvio Schulte MD Unavailable [phone] Bri Rolilns RN Unavailable Unavailable Werner Swift MD Unavailable Liz Capellan DO Primary Care Provider [phone] Reason for Visit * Reason Comments Medication Refill Encounter Details Date Type Department Care Team (Late st Contact Info) Description 11/21/2021 [facility]ill [facility] #2 [place] [address] Keith Craft MD #1 [place] [address] Medication Refill Social History Tobacco Use Types [...] suspected to have Coronavirus/COVID-19? No / Unsure 11/03/2021 10:40 AM CDT documented as of this encounter Miscellaneous Notes * Telephone Encounter - Gloria Cornejo RN - 11/22/2021 10:09 AM CDT Medication failed the protocol, provider to review and approve the medication order if appropriate. Requested Prescriptions Pending Prescriptions Disp Refills Ventolin HFA 108 (90 Base) MCG/ACT Aerosol Solution [Pharmacy Med Name: VENTOLIN HFA AEROSOL SOLN] 18 g 1 Sig: USE TWO (2) PUFF(S) BY INHALATION ROUTE EVERY FOUR (4) HOURS NEEDED WHEEZING Short Acting Inhaled Beta-Agonists Protocol Passed - 11/21/2021 9:52 AM Passed - Visit with relevant provider in past 12 months or upcoming 90 days Recent Visits Date Type Provider Dept 11/03/21 Office Visit Keith Craft MD [facility] 10/19/21 Office Visit Keith Craft MD [facility] 10/05/21 Office Visit Keith Craft MD [facility] 09/08/21 Office Visit Brie Denis, NICOLE [facility] [place] 08/14/21 Office Visit Keith Craft MD [facility] 07/31/21 Office Visit Keith Craft MD [facility] 05/25/21 Office Visit Marcin Anderson, LABORER HIDE HOUSE, TENANT COORDINATOR [facility] [place] 05/05/21 Office Visit Brie Denis, PAC [facility] [place] 04/14/21 Office Visit Keith Craft MD [facility] 03/23/21 Office Visit Keith Craft MD [facility] Showing recent visits within past 365 days and meeting all other requirements Future Appointments Date Type Provider Dept 12/19/21 Appointment Keith Craft MD [facility] Showing future appointments within next 90 days and meeting all other requirements Movantik 25 MG Tablet [Pharmacy Med Name: MOVANTIK 25MG TABLET] 30 Tablet 3 Sig: TAKE ONE (1) TABLET BY MOUTH EVERY MORNING (BEFORE BREAKFAST). Not Delegated - Naloxone Protocol Failed - 11/21/2021 9:52 AM Failed - This refill cannot be delegated Passed - Visit with relevant provider in past 12 months or upcoming 90 days Recent Visits Date Type Provider Dept 11/03/21 Office Visit Keith Craft MD [facility] 10/19/21 Office Visit Keith Craft MD [facility] 10/05/21 Office Visit Keith Craft MD [facility] 09/08/21 Office Visit Brie Denis, PAC [facility] 08/14/21 Office Visit Keith Craft MD [facility] 07/31/21 Office Visit Keith Craft MD [facility] 05/25/21 Office Visit Marcin Anderson APRN, TENANT COORDINATOR [facility] [place] 05/05/21 Office Visit Brie Denis, PAC [facility] 04/14/21 Office Visit Keith Craft MD [facility] 03/23/21 Office Visit Keith Craft MD [facility] Showing recent visits within past 365 days and meeting all other requirements Future Appointments Date Type Provider Dept 12/19/21 Appointment Keith Craft MD [facility] Showing future appointments within next 90 days and meeting all other requirements documented in this encounter Plan of Treatment Upcoming Encounters Date Type Department Care Team (Anthony st Contact Info) Description 07/13/2024 1:30 PM RN L AND D [facility] Visit [facility] - [place] #2 [place] [address] Liz Capellan, DO 2 [facility] [place] [facility] [address] [place] [address] 07/20/2024 2:15 PM RN L AND D Office Visit [facility] - Endocrinology - [place] #2 [facility] [address] Ana Vivar N, LABORER HIDE HOUSE, TENANT COORDINATOR 2 [facility] [address] [place] [address] Yasmin Restrepo MD #[address] [phone] 07/31/2024 1:00 PM RN L AND D [facility] [address] [place] [address] Werner Swift MD #2 [place] [address] Discharge Disposition: Discharged to home or Selfcare 08/03/2024 1:15 PM CDT [facility] - Pulmonology & Sleep Medicine - [place] #2 [place] [address] Werner Swift MD #2 [place] [address] 09/02/2024 2:00 PM CDT [facility] 1 [place] [address] Werner Swift MD #2 [place] [address] Discharge Disposition: Discharged to home or Selfcare 10/09/2024 2:30 PM CDT Office Visit [facility] - Family [facility] #[address] [place] [address] Liz Capellan, DO 2 [facility] [place], [place]. [address] [place] [address] documented as of this encounter Goals Goal [...] Zones/Action plan education. I will notify my Inspector Fabric if my symptoms fall in the y [...] 19 04/20/2022 04/20/2022 04/30/2022 12:1 8 AM RN L AND D COVID - 19 07/18/2022 07/18/2022 07/28/2022 12:1 6 AM RN L AND D COVID - 19 08/21/2022 08/21/2022 08/22/2022 8:31 AM CDT Respiratory Rule Out - RPA 08/21/2022 08/21/2022 0 08/22/2022 3:21 PM CDT COVID - 19 04/18/2023 04/18/2023 04/28/2023 12:1 6 AM RN L AND D COVID - 19 07/13/2023 07/13/2023 07/23/2023 12:1 6 AM RN L AND D Respiratory Rule Out - RPA 03/17/2024 03/17/2024 1 3:36 PM CDT COVID - 19 04/27/2024 04/27/2024 04/27/2024 2:19 PM RN L AND D Assessment Noted Time PHQ-9 Depression Total Score: 1 03/07/20 21 10:29 AM CDT documented as of this encounter Care Teams Senior Pl Sql Developer Relationship Specialty Start Date End Date Keith Craft MD PCP - General Family Medicine 01/14/19 12/26/23 Liz Capellan DO [address] [address] PCP - General Family Medicine 12/27/23 Quang Locke DO Gastroenterology 01/18/16 Bri Rollins RN [place] Inspector Fabric 03/07/21 05/22/23 [place] [address] [address] 05/25/21 Bri Rollins RN [place] Nurse Inspector Fabric 03/07/21 05/23/23 Werner Swift MD #2 [place] [address] Consulting Physician Pulmonary Disease 01/30/22 documented as of this encounter
--- OUTSIDE RECORDS SUMMARY | 2024-07-10 13:40 | XMS_ITS | Encounter Summary ---
Author Organization [facility] Address [address] [place] [address] Phone Care Team Providers Care General Administrator Name Role Phone Quang Locke Unavailable [phone] Keith Craft MD Primary Care Provider [phone] Bri Rollins RN Unavailable Unavailable Silvio Schulte MD Unavailable Bri Rollins RN Unavailable Unavailable Werner Swift MD Unavailable Liz Capellan DO Primary Care Provider [phone] Reason for Visit * Reason Comments Medication Refill Encounter Details Date Type Department Care Team (Late st Contact Info) Description 11/22/2021 Refill [facility] Medical [address] [place] [address] Keith Craft MD #1 [place] [address] Medication Refill Social History Tobacco Use Types [...] Telephone Encounter - Gloria Cornejo RN - 11/23/2021 1:22 PM CDT Pharmacy note states patient wants dexilant instead of Protonix. documented in this encounter Plan of Treatment Upcoming Encounters Date Type Department Care Team (Late st Contact Info) Description 07/13/2024 1:30 PM ADVERTISING INTERNSHIP Office Visit [facility] - [place] #2 [place] [address] Liz Capellan, DO [address] [address] 07/20/2024 2:15 PM ADVERTISING INTERNSHIP Office Visit [facility] Medical [facility] - Endocrinology - [place] #2 [place] [address] Ana Vivar, SITE RELIABILITY ENGINEER, SPECIMEN COLLECTOR [address] [address] Yasmin Restrepo MD #[address] [address] 07/31/2024 1:00 PM ADVERTISING INTERNSHIP Appointment [facility] CT [address] [place] [address] Werner Swift MD #2 [place] [address] Discharge Disposition: Discharged to home or Selfcare 08/03/2024 1:15 PM CDT Office Visit [facility] - Pulmonology & Sleep Medicine [facility] #2 [place] [address] Werner Swift MD #2 [place] [address] 09/02/2024 2:00 PM CDT [facility] 1 [place] [address] Werner Swift MD #2 [place] [address] Discharge Disposition: Discharged to home or Selfcare 10/09/2024 2:30 PM CDT Office Visit [facility] - Family Medicine [facility] #2 [place] [address] Liz Capellan, DO [address] [address] documented as of this encounter Goals Goal [...] Zones/Action plan education. I will notify my Shop Router if my symptoms fall in the y [...] 19 04/20/2022 04/20/2022 04/30/2022 12:1 8 AM ADVERTISING INTERNSHIP COVID - 19 07/18/2022 07/18/2022 07/28/2022 12:1 6 AM ADVERTISING INTERNSHIP COVID - 19 08/21/2022 08/21/2022 08/22/2022 8:31 AM CDT Respiratory Rule Out - RPA 08/21/2022 08/21/2022 0 08/22/2022 3:21 PM CDT COVID - 19 04/18/2023 04/18/2023 04/28/2023 12:1 6 AM ADVERTISING INTERNSHIP COVID - 19 07/13/2023 07/13/2023 07/23/2023 12:1 6 AM ADVERTISING INTERNSHIP Respiratory Rule Out - RPA 03/17/2024 03/17/2024 1 3:36 PM CDT COVID - 19 04/27/2024 04/27/2024 04/27/2024 2:19 PM ADVERTISING INTERNSHIP Assessment Noted Time PHQ-9 Depression Total Score: 1 03/07/20 21 10:29 AM CDT documented as of this encounter Care Teams General Administrator Relationship Specialty Start Date End Date Keith Craft MD PCP - General Family Medicine 01/14/19 12/26/23 Liz Capellan DO [address] [address] PCP - General Family Medicine 12/27/23 Quang Locke DO Gastroenterology 01/18/16 Bri Rollins RN [place] Shop Router 03/07/21 05/22/23 [place] [address] [address] 05/25/21 Bri Rollins RN [place] Nurse Shop Router 03/07/21 05/23/23 Werner Swift MD #2 [place] [address] Consulting Physician Pulmonary Disease 01/30/22 documented as of this encounter
--- OUTSIDE RECORDS SUMMARY | 2024-07-10 13:40 | XMS_ITS | Encounter Summary ---
Author Organization [facility] Address [address] [place] [address] Phone Care Team Providers Care Concrete Pipe Plant Supervisor Name Role Phone Quang Locke Unavailable [phone] Keith Craft MD Primary Care Provider [phone] Bri Rollins RN Unavailable Unavailable Silvio Schulte MD Unavailable [phone] Bri Rollins RN Unavailable Unavailable Werner Swift MD Unavailable Liz Capellan DO Primary Care Provider [phone] Reason for Visit * Reason Comments Medication Refill Encounter Details Date Type Department Care Team (Late st Contact Info) Description 11/20/2021 Refill [facility] #2 [place] [address] Keith Craft MD #1 [place] [address] Medication Refill Social History Tobacco Use Types [...] Telephone Encounter - Gloria Cornejo RN - 11/21/2021 11:32 AM CDT Medication failed the protocol, provider to review and approve the medication order if appropriate. Requested Prescriptions Pending Prescriptions Disp Refills SUMAtriptan (IMITREX) 100 MG Tablet [Pharmacy Med Name: SUMATRIPTAN SUCCINATE 100MG TABLET] 9 Tablet 3 Sig: DIRECTED BY PHYSICIAN MAY REPEAT DOSE IF HEADACHE RECURS Not Delegated - Serotonin Agonists (Oral and Nasal) Protocol Failed - 11/20/2021 11:44 AM Failed - This refill cannot be delegated; check utilization no more than 9 doses per month Passed - Visit with relevant provider in past 24 months or upcoming 90 days Recent Visits Date Type Provider Dept 11/03/21 Office Visit Keith Craft MD [facility] 10/19/21 Office Visit Keith Craft MD [facility] 10/05/21 Office Visit Keith Craft MD [facility] 09/08/21 Office Visit Brie Denis, NICOLE [facility] 08/14/21 Office Visit Keith Craft MD [facility] 07/31/21 Office Visit Keith Craft MD [facility] 05/25/21 Office Visit Marcin Anderson, BALLOON ARTIST, CREDIT REVIEW OFFICER [facility] 05/05/21 Office Visit Analiamanny Brie Palma, PAC [facility]21 Office Visit Keith Craft MD [facility] 03/23/21 Office Visit Keith Craft MD [facility] Showing recent visits within past 730 days and meeting all other requirements Future Appointments Date Type Provider Dept 12/19/21 Appointment [facility] Show[facility] future appointments within next 90 days and meeting all other requirements Passed - No documented Systolic BP > 200 within past 3 months Passed - Number of active Serotonergic medications less than 3 documented in this encounter Plan of Treatment Upcoming Encounters Date Type Department Care Team (Late st Contact Info) Description 07/13/2024 1:30 PM PAYMENT ANALYST Office Visit [facility] Medical [facility] - Family Medicine - [place] #2 [place] [address] Liz Capellan L, DO [address] [address] 07/20/2024 2:15 PM PAYMENT ANALYST Office Visit [facility] Medical [facility] - Endocrinology - [place] #2 [place] [address] Ana Vivar, REBECCA, CREDIT REVIEW OFFICER 2 [facility] [address] [place] [address] Yasmin Restrepo MD #[address] [address] 07/31/2024 1:00 PM PAYMENT ANALYST [facility] [address] [place] [address] Werner Swift MD #2 [place] [address] Discharge Disposition: Discharged to home or Selfcare 08/03/2024 1:15 PM CDT Office Visit [facility] - Pulmonology & Sleep Medicine [facility] #2 [place] [address] Werner Swift MD #2 [place] [address] 09/02/2024 2:00 PM CDT Appointment [facility] Respiratory Therapy 1 [place] [address] Werner Swift MD #2 [place] [address] Discharge Disposition: Discharged to home or Selfcare 10/09/2024 2:30 PM CDT Office Visit [facility] Family [facility] #2 [place] [address] Liz Capellan, DO [address] [address] documented as of this encounter Goals Goal [...] Zones/Action plan education. I will notify my Activity Therapy Teacher if my symptoms fall in the y [...] 19 04/20/2022 04/20/2022 04/30/2022 12:1 8 AM PAYMENT ANALYST COVID - 19 07/18/2022 07/18/2022 07/28/2022 12:1 6 AM PAYMENT ANALYST COVID - 19 08/21/2022 08/21/2022 08/22/2022 8:31 AM CDT Respiratory Rule Out - RPA 08/21/2022 08/21/2022 0 08/22/2022 3:21 PM CDT COVID - 19 04/18/2023 04/18/2023 04/28/2023 12:1 6 AM PAYMENT ANALYST COVID - 19 07/13/2023 07/13/2023 07/23/2023 12:1 6 AM PAYMENT ANALYST Respiratory Rule Out - RPA 03/17/2024 03/17/2024 1 3:36 PM CDT COVID - 19 04/27/2024 04/27/2024 04/27/2024 2:19 PM PAYMENT ANALYST Assessment Noted Time PHQ-9 Depression Total Score: 1 03/07/20 21 10:29 AM CDT documented as of this encounter Care Teams Concrete Pipe Plant Supervisor Relationship Specialty Start Date End Date Keith Craft MD PCP - General Family Medicine 01/14/19 12/26/23 Liz Capellan DO 2 [facility] [place] [address] PCP - General Family Medicine 12/27/23 Quang Locke DO Gastroenterology 01/18/16 Bri Rollins, RN [place] Activity Therapy Teacher 03/07/21 05/22/23 [place] [address] [address] 05/25/21 Bri Rollins, RN [place] Nurse Activity Therapy Teacher 03/07/21 05/23/23 Werner Swift MD #2 [place] [address] Consulting Physician Pulmonary Disease 01/30/22 documented as of this encounter
--- OUTSIDE RECORDS SUMMARY | 2024-07-10 13:40 | XMS_ITS | Encounter Summary ---
Author Organization [facility] Address [address] [place] [address] Phone Care Team Providers Care Truck Crane Operator Name Role Phone Quang Locke Unavailable [phone] Keith Craft MD Primary Care Provider [phone] Bri Rollins RN Unavailable Unavailable Silvio Schulte MD Unavailable [phone] Bri Rollins RN Unavailable Unavailable Werner Swift MD Unavailable Liz Capellan DO Primary Care Provider [phone] Reason for Visit * Reason Comments Medication Refill Encounter Details Date Type Department Care Team (Late st Contact Info) Description 12/13/2021 Refill [facility] #2 [place] [address] Keith Craft MD #1 [place] [address] Medication Refill Social History Tobacco Use Types [...] Telephone Encounter - Gloria Cornejo RN - 12/14/2021 2:00 PM CDT Medication warning Per nursing clinical judgement, provider to review and approve the medication(s) order(s) if appropriate. Requested Prescriptions Pending Prescriptions Disp Refills Trulicity 0.75 MG/0.5ML Solution Pen-injector [Pharmacy Med Name: TRULICITY 0.75/0.5 SOLN PEN-INJ] 6 mL 1 Sig: INJECT 0.5 ML(0.75MG) WEEKLY ON SATURDAY DIRECTED BY PHYSICIAN GLP-1 Agonists Protocol Passed - 12/13/2021 6:17 PM Passed - Lipid panel result on file in past 12 months LDL Date Value Ref Range Status 08/14/2021 42 5 - 130 mg/dL Final HDL CHOLESTEROL Date Value Ref Range Status 08/14/2021 59.7 >40 mg/dL Final CHOLESTEROL Date Value Ref Range Status 08/14/2021 119 <=200 mg/dL Final TRIGLYCERIDES Date Value Ref Range Status 08/14/2021 86 <150 mg/dL Final VLDL Date Value Ref Range Status 08/14/2021 17 5 - 55 mg/dL Final CHOL/HDL RATIO Date Value Ref Range Status 08/14/2021 2.0 0.0 - 4.4 Final NON-HDL CHOLESTEROL Date Value Ref Range Status 08/14/2021 59.3 <130 mg/dL Final Passed - Visit with relevant provider in past 6 months or upcoming 90 days Recent Visits Date Type Provider Dept 11/03/21 Office Visit Keith Craft MD [facility] 10/19/21 Office Visit Keith Craft MD [facility] 10/05/21 Office Visit Keith Craft MD [facility] 09/08/21 Office Visit Brie Denis, PAC [facility] 08/14/21 Office Visit Keith Craft MD [facility] 07/31/21 Office Visit Keith Craft MD [facility] Showing recent visits within past 182 days and meeting all other requirements Future Appointments Date Type Provider Dept 03/09/22 Appointment Keith Craft MD [facility] Showing future appointments within next 90 days and meeting all other requirements Passed - HgA1C result on record in past 6 months HGB-A1C Date Value Ref Range Status 07/24/2021 6.0 4.0 - 6.0 % Final Passed - GFR on record in past 6 months GFR, EST. NONAFRICAN Date Value Ref Range Status 10/23/2021 >60 >=60 Final Insulin Pen Needle (UltiCare Mini Pen [place]) 31G X 6 MM Misc [Pharmacy Med Name: ULTICARE MINI PEN NEEDLES/31G X 6MM 56OR2UA MISC] 300 Each 1 Sig: USE WITH INSULIN THREE TIMES a DAY Diabetic Supplies Protocol Passed - 12/13/2021 6:17 PM Passed - Visit with relevant provider in past 6 months Recent Visits Date Type Provider Dept 11/03/21 [...] Provider Dept 03/09/22 Appointment Keith Craft MD [facility] Showing future appointments within next 90 days and meeting all other requirements documented in this encounter Plan of Treatment Upcoming Encounters Date Type Department Care Team (Late st Contact Info) Description 07/13/2024 1:30 PM ALTERATION HAND Office Visit [facility] Medical [facility] - Family Medicine - [place] #2 [facility] [place] [address] Liz Capellan, DO 2 [facility] [address] [place] [address] 07/20/2024 2:15 PM ALTERATION HAND Office Visit [facility] - Endocrinology - [place] #2 [place] [address] Ana Vivar, MAINTENANCE APPRENTICE, PUMP INSTALLATION AND SERVICER [address] [address] Yasmin Restrepo MD #[address] [address] 07/31/2024 1:00 PM ALTERATION HAND [facility] [address] [place] [address] Werner Swift MD #2 [place] [address] Discharge Disposition: Discharged to home or Selfcare 08/03/2024 1:15 PM CDT Office Visit [facility] - Pulmonology & Sleep Medicine - [place] #2 [place] [address] Werner Swift MD #2 [place] [address] 09/02/2024 2:00 PM CDT Appointment [facility] Respiratory Therapy 1 [place] [address] Werner Swift MD #2 [place] [address] Discharge Disposition: Discharged to home or Selfcare 10/09/2024 2:30 PM CDT Office Visit [facility] - Family [facility] #2 [place] [address] Liz Capellan, DO [address] [address] documented as of this encounter Goals Goal [...] Zones/Action plan education. I will notify my Firer Watertender if my symptoms fall in the y ellow zone . I will consider receiving an influenza and pneumonia vaccination, if applicable. -I will call the office if I experience any symptoms listed above to discuss at home management options. documented as of this encounter Visit Diagnoses Diagnosis Type 2 diabetes mellitus with diabetic neuropathy, with long-term current use of insulin (HCC) documented in this encounter Additional Health Concerns Infection Onset Date Last Indicated Resolved Time Stenotrophomonas maltophilia Comment:Must have a follow up respiratory sample to remove isolation flag. 10/20/2021 10/20/2021 COVID - 19 04/20/2022 04/20/2022 04/30/2022 12:1 8 AM ALTERATION HAND COVID - 19 07/18/2022 07/18/2022 07/28/2022 12:1 6 AM ALTERATION HAND COVID - 19 08/21/2022 08/21/2022 08/22/2022 8:31 AM CDT Respiratory Rule Out - RPA 08/21/2022 08/21/2022 0 08/22/2022 3:21 PM CDT COVID - 19 04/18/2023 04/18/2023 04/28/2023 12:1 6 AM ALTERATION HAND COVID - 19 07/13/2023 07/13/2023 07/23/2023 12:1 6 AM ALTERATION HAND Respiratory Rule Out - RPA 03/17/2024 03/17/2024 1 3:36 PM CDT COVID - 19 04/27/2024 04/27/2024 04/27/2024 2:19 PM ALTERATION HAND Assessment Noted Time PHQ-9 Depression Total Score: 1 03/07/20 21 10:29 AM CDT documented as of this encounter Care Teams Truck Crane Operator Relationship Specialty Start Date End Date Keith Craft MD PCP - General Family Medicine 01/14/19 12/26/23 Liz Capellan DO 2 [facility] [address] [address] PCP - General Family Medicine 12/27/23 Quang Locke DO Gastroenterology 01/18/16 Bri Rollins RN [place] Firer Watertender 03/07/21 05/22/23 [place] [address] [address] 05/25/21 Bri Rollins RN [place] Nurse Firer Watertender 03/07/21 05/23/23 Werner Swift MD #2 [place] [address] Consulting Physician Pulmonary Disease 01/30/22 documented as of this encounter
--- OUTSIDE RECORDS SUMMARY | 2024-07-10 13:40 | XMS_ITS | Encounter Summary ---
Author Organization [facility] Address [address] [place] [address] Phone Care Team Providers Care Acquisitions Assistant Name Role Phone Quang Locek Unavailable [phone] Keith Craft MD Primary Care Provider [phone] Bri Rollins RN Unavailable Unavailable Silvio Schulte MD Unavailable [phone] Bri Rollins RN Unavailable Unavailable Werner Swift MD Unavailable Liz Capellan DO Primary Care Provider [phone] Reason for Visit * Reason Comments Medication Refill Encounter Details Date Type Department Care Team (Late st Contact Info) Description 02/13/2022 [facility]ill [facility] #2 [place] [address] Keith Craft MD #1 [place] [address] Medication Refill Social History Tobacco Use Types [...] Telephone Encounter - Gloria Cornejo RN - 02/13/2022 11:56 AM CDT Medication failed the protocol, provider to review and approve the medication order if appropriate. Requested Prescriptions Pending Prescriptions Disp Refills Xigduo XR 5-1000 MG TABLET SR 24 HR [Pharmacy Med Name: XIGDUO XR 5-1000MG TABLET ER 24HR] 180 Tablet 1 Sig: TAKE ONE (1) TABLET BY MOUTH TWO (2) TIMES DAILY. SGLT2 Inhibitors-Biguanides Protocol Failed - 02/13/2022 11:42 AM Failed - HgA1C on record in past 6 months HGB-A1C Date Value Ref Range Status 07/24/2021 6.0 4.0 - 6.0 % Final Passed - Visit with relevant provider in past 6 months or upcoming 90 days Recent Visits Date Type Provider Dept 11/03/21 Office Visit Keith Craft MD [facility] 10/19/21 Office Visit Keith Craft MD [facility] 10/05/21 Office Visit Keith Craft MD [facility] 09/08/21 Office Visit Brie Denis, [facility] Showing recent visits within past 182 days and meeting all other requirements Future Appointments Date Type Provider Dept 03/09/22 Appointment Keith Craft MD [facility] Showing future appointments within next 90 days and meeting all other requirements Passed - GFR greater than or equal to 30 in past 6 months GFR, EST. NONAFRICAN Date Value Ref Range Status 10/23/2021 >60 >=60 Final Trelegy Ellipta 100-62.5-25 MCG/INH AEROSOL POWDER, BREATH ACTIVATED [Pharmacy Med Name: TRELEGY ELLIPTA 100MCG AERO POW BR ACT] 60 Each 2 Sig: TAKE ONE (1) PUFF BY INHALATION DAILY. Inhaled Combinations Protocol Passed - 02/13/2022 11:42 AM Passed - Visit with relevant provider in past 12 months or upcoming 90 days Recent Visits Date Type Provider Dept 11/03/21 Office Visit Keith Carft MD [facility] 10/19/21 Office Visit Keith Craft MD [facility] 10/05/21 Office Visit Keith Craft MD [facility] 09/08/21 Office Visit Brie Denis, PAC [facility] [place] 08/14/21 [facility] 07/31/21 Office Visit Keith Craft MD [facility] 05/25/21 Office Visit Marcin Anderson APRN, GAS ENGINEER [facility] 05/05/21 Office Visit Brie Denis, PAC [facility] [place] 04/14/21 Office Visit [facility] 03/23/21 Office Visit Keith Craft MD [facility] [place] Showing recent visits within past 365 days and meeting all other requirements Future Appointments Date Type Provider Dept 03/09/22 Appointment Keith Craft MD [facility] Showing future appointments within next 90 days and meeting all other requirements Passed - Active short-acting beta agonist prescription documented in this encounter Plan of Treatment Upcoming Encounters Date Type Department Care Team (Late st Contact Info) Description 07/13/2024 1:30 PM FRAME TABLE OPERATOR HELPER Office Visit [facility] - Family Medicine - [place] [address] [place] [address] Liz Capellan L, DO 2 [facility] [address] [place] [address] 07/20/2024 2:15 PM FRAME TABLE OPERATOR HELPER Office Visit [facility] - Endocrinology - [place] #2 [place] [address] Ana Vivar, SECURITY AGENT, GAS ENGINEER 2 [facility] [address] [place] [address] Yasmin Restrepo MD #[address] [phone] 07/31/2024 1:00 PM FRAME TABLE OPERATOR HELPER [facility] [address] [place] [address] Werner Swift MD #2 [place] [address] Discharge Disposition: Discharged to home or Selfcare 08/03/2024 1:15 PM CDT Office Visit [facility] - Pulmonology & Sleep Medicine [facility] #2 [place] [address] Werner Swift MD #2 [place] [address] 09/02/2024 2:00 PM CDT [facility]ointment [facility] [address] [place] [address] Werner Swift MD #2 [place] [address] Discharge Disposition: Discharged to home or Selfcare 10/09/2024 2:30 PM CDT Office Visit [facility] - Family [facility] - [place] [address] [place] [address] Liz Capellan, DO [address] [facility] [place] [place] [place] [address] documented as of this encounter Goals Goal [...] Zones/Action plan education. I will notify my Die Equipment Operator if my symptoms fall in the [...] 19 04/20/2022 04/20/2022 04/30/2022 12:1 8 AM FRAME TABLE OPERATOR HELPER COVID - 19 07/18/2022 07/18/2022 07/28/2022 12:1 6 AM FRAME TABLE OPERATOR HELPER COVID - 19 08/21/2022 08/21/2022 08/22/2022 8:31 AM CDT Respiratory Rule Out - RPA 08/21/2022 08/21/2022 0 08/22/2022 3:21 PM CDT COVID - 19 04/18/2023 04/18/2023 04/28/2023 12:1 6 AM FRAME TABLE OPERATOR HELPER COVID - 19 07/13/2023 07/13/2023 07/23/2023 12:1 6 AM FRAME TABLE OPERATOR HELPER Respiratory Rule Out - RPA 03/17/2024 03/17/2024 1 3:36 PM CDT COVID - 19 04/27/2024 04/27/2024 04/27/2024 2:19 PM FRAME TABLE OPERATOR HELPER Assessment Noted Time PHQ-9 Depression Total Score: 1 03/07/20 21 10:29 AM CDT documented as of this encounter Care Teams Acquisitions Assistant Relationship Specialty Start Date End Date Keith Craft MD PCP - General Family Medicine 01/14/19 12/26/23 Liz Capellan DO [address] [address] PCP - General Family Medicine 12/27/23 Quang Locke DO Gastroenterology 01/18/16 Bri Rollins RN [place] Die Equipment Operator 03/07/21 05/22/23 [place] [id number] [address] 05/25/21 Bri Rollins RN [place] Nurse Die Equipment Operator 03/07/21 05/23/23 Werner Swift MD #2 [place] [address] Consulting Physician Pulmonary Disease 01/30/22 documented as of this encounter
--- OUTSIDE RECORDS SUMMARY | 2024-07-10 13:40 | XMS_ITS | Encounter Summary ---
Author Organization [facility] Address [address] [place] [address] Phone Care Team Providers Care Scientific Advisor Name Role Phone Quang Locke Unavailable [phone] Keith Craft MD Primary Care Provider [phone] Bri Rollins RN Unavailable Unavailable Silvio Schulte MD Unavailable [phone] Bri Rollins RN Unavailable Unavailable Werner Swift MD Unavailable Liz Capellan DO Primary Care Provider [phone] Reason for Visit * Reason Comments Medication Refill Encounter Details Date Type Department Care Team (Late st Contact Info) Description 11/16/2021 Refill [facility] Medicine [facility] #2 [place] [address] Keith Craft MD #1 [place] [address] Medication Refill Social History Tobacco Use Types [...] AM CDT documented as of this encounter Plan of Treatment Upcoming Encounters Date Type Department Care Team (Late st Contact Info) Description 07/13/2024 1:30 PM VISUAL AND STOCK ASSOCIATE [facility] - [place] [address] [place] [address] Liz Capellan, DO [address] [address] 07/20/2024 2:15 PM VISUAL AND STOCK ASSOCIATE Office Visit [facility] - Endocrinology - [place] [address] [place] [address] Ana Vivar, SERVICE COORDINATOR [facility] [facility], SUPERVISOR WHEEL SHOP [address] [address] Yasmin Restrepo MD #[address] [address] 07/31/2024 1:00 PM VISUAL AND STOCK ASSOCIATE [facility] [address] [place] [address] Werner Swift MD #2 [place] [address] Discharge Disposition: Discharged to home or Selfcare 08/03/2024 1:15 PM CDT [facility] Medicine [facility] #2 [place] [address] Werner Swift MD #2 [place] [address] 09/02/2024 2:00 PM CDT Appointment [facility] Respiratory Therapy 1 [place] [address] Werner Swift MD #2 [place] [address] Discharge Disposition: Discharged to home or Selfcare 10/09/2024 2:30 PM CDT Office Visit [facility] Family [facility] #2 [place] [address] Liz Capellan, DO [address] [address] documented as of this encounter Goals Goal [...] Zones/Action plan education. I will notify my Appeals Analyst if my symptoms fall in the y [...] 19 04/20/2022 04/20/2022 04/30/2022 12:1 8 AM VISUAL AND STOCK ASSOCIATE COVID - 19 07/18/2022 07/18/2022 07/28/2022 12:1 6 AM VISUAL AND STOCK ASSOCIATE COVID - 19 08/21/2022 08/21/2022 08/22/2022 8:31 AM CDT Respiratory Rule Out - RPA 08/21/2022 08/21/2022 0 08/22/2022 3:21 PM CDT COVID - 19 04/18/2023 04/18/2023 04/28/2023 12:1 6 AM VISUAL AND STOCK ASSOCIATE COVID - 19 07/13/2023 07/13/2023 07/23/2023 12:1 6 AM VISUAL AND STOCK ASSOCIATE Respiratory Rule Out - RPA 03/17/2024 03/17/2024 1 3:36 PM CDT COVID - 19 04/27/2024 04/27/2024 04/27/2024 2:19 PM VISUAL AND STOCK ASSOCIATE Assessment Noted Time PHQ-9 Depression Total Score: 1 03/07/20 21 10:29 AM CDT documented as of this encounter Care Teams Scientific Advisor Relationship Specialty Start Date End Date Keith Craft MD PCP - General Family Medicine 01/14/19 12/26/23 Liz Capellan DO 2 [facility] [address] [place] [address] PCP - General Family Medicine 12/27/23 Quang Locke DO Gastroenterology 01/18/16 Bri Rollins, KATEY [place] Appeals Analyst 03/07/21 05/22/23 [place] [id number] [address] 05/25/21 Bri Rollins, RN [place] Nurse Appeals Analyst 03/07/21 05/23/23 Werner Swift MD #2 [place] [address] Consulting Physician Pulmonary Disease 01/30/22 documented as of this encounter
--- OUTSIDE RECORDS SUMMARY | 2024-07-10 13:40 | XMS_ITS | Encounter Summary ---
Author Organization [facility] Address [address] [place] [address] Phone Care Team Providers Care Network Coordinator Name Role Phone Quang Locke Unavailable [phone] Keith Craft MD Primary Care Provider [phone] Bri Rollins RN Unavailable Unavailable Silvio Schulte MD Unavailable Bri Rollins RN Unavailable Unavailable Werner Swift MD Unavailable Liz Capellan DO Primary Care Provider [phone] Reason for Visit * Reason Comments Medication Refill Encounter Details Date Type Department Care Team (Late st Contact Info) Description 01/05/2022 Refill [facility] #2 [place] [address] Keith Craft MD #1 [place] [address] Medication Refill Social History Tobacco Use Types [...] Telephone Encounter - Gloria Cornejo RN - 01/08/2022 8:42 AM CDT PDMP 12/08/21 Medication failed the protocol, provider to review and approve the medication order if appropriate. Requested Prescriptions Pending Prescriptions Disp Refills HYDROcodone-acetaminophen (NORCO) 7.5-325 MG Tablet [Pharmacy Med Name: HYDROCODONE/ACETAMINOPHEN 7.5-325 TABLET] 60 Tablet 0 Sig: TAKE ONE (1) TABLET BY MOUTH TWO (2) TIMES DAILY NEEDED FOR SEVERE PAIN. Not Delegated - Opioid Combinations Protocol Failed - 01/05/2022 6:06 PM Failed - This refill cannot be delegated Passed - Visit with relevant provider in past 12 months or upcoming 90 days Recent Visits Date Type Provider Dept 11/03/21 Office Visit Keith Craft MD [facility] 10/19/21 Office Visit Keith Craft MD [facility] 10/05/21 Office Visit Keith Craft MD [facility] 09/08/21 Office Visit Brie Denis, PAC [facility] [place] 08/14/21 Office Visit Keith Craft MD [facility] 07/31/21 Office Visit Keith Craft MD [facility] 05/25/21 Office Visit Marcin Anderson APRN, TELEPHONE EXCHANGE OPERATOR [facility] [place] 05/05/21 Office Visit Brie Denis, PAC [facility] 04/14/21 Office Visit Keith Craft MD [facility] 03/23/21 Office Visit Keith Craft MD [facility] [place] Showing recent visits within past 365 days and meeting all other requirements Future Appointments Date Type Provider Dept 03/09/22 Appointment Keith Craft MD [facility] [place] Showing future appointments within next 90 days and meeting all other requirements documented in this encounter Plan of Treatment Upcoming Encounters Date Type Department Care Team (Late st Contact Info) Description 07/13/2024 1:30 PM PROTOTYPE SEWER [facility] - Family Medicine - [place] #2 [place] [address] Liz Capellan, DO 2 [facility] [address] [place] [address] 07/20/2024 2:15 PM PROTOTYPE SEWER [facility] [place] #2 [facility] [place] [address] Ana Vivar, MOTOR VEHICLE COMPLIANCE ANALYST, TELEPHONE EXCHANGE OPERATOR 2 [facility] [address] [place] [address] Yasmin Restrepo MD #[address] [address] 07/31/2024 1:00 PM PROTOTYPE SEWER [facility] [address] [place] [address] Werner Swift MD #2 [facility] [place] [address] Discharge Disposition: Discharged to home or Selfcare 08/03/2024 1:15 PM CDT [facility] [place] #2 [facility] [place] [address] Werner Swift MD #2 [place] [address] 09/02/2024 2:00 PM CDT [facility]ment [facility] Res[facility] 1 [place] [address] Werner Swift MD #2 [place] [address] Discharge Disposition: Discharged to home or Selfcare 10/09/2024 2:30 PM CDT Office Visit [facility] - Family [facility] #2 [place] [address] Liz Capellan, DO [address] [address] documented as of this encounter Goals Goal [...] Zones/Action plan education. I will notify my Supervisor Prepress if my symptoms fall in the y [...] 19 04/20/2022 04/20/2022 04/30/2022 12:1 8 AM PROTOTYPE SEWER COVID - 19 07/18/2022 07/18/2022 07/28/2022 12:1 6 AM PROTOTYPE SEWER COVID - 19 08/21/2022 08/21/2022 08/22/2022 8:31 AM CDT Respiratory Rule Out - RPA 08/21/2022 08/21/2022 0 08/22/2022 3:21 PM CDT COVID - 19 04/18/2023 04/18/2023 04/28/2023 12:1 6 AM PROTOTYPE SEWER COVID - 19 07/13/2023 07/13/2023 07/23/2023 12:1 6 AM PROTOTYPE SEWER Respiratory Rule Out - RPA 03/17/2024 03/17/2024 1 3:36 PM CDT COVID - 19 04/27/2024 04/27/2024 04/27/2024 2:19 PM PROTOTYPE SEWER Assessment Noted Time PHQ-9 Depression Total Score: 1 03/07/20 21 10:29 AM CDT documented as of this encounter Care Teams Network Coordinator Relationship Specialty Start Date End Date Keith Craft MD PCP - General Family Medicine 01/14/19 12/26/23 Liz Capellan DO 2 [place] [address] PCP - General Family Medicine 12/27/23 Quang Locke DO Gastroenterology 01/18/16 Bri Rollins, RN [place] Supervisor Prepress 03/07/21 05/22/23 [place] [address] [address] 05/25/21 Bri Rollins RN [place] Nurse Supervisor Prepress 03/07/21 05/23/23 Werner Swift MD #2 [place] [address] Consulting Physician Pulmonary Disease 01/30/22 documented as of this encounter
--- OUTSIDE RECORDS SUMMARY | 2024-07-10 13:40 | XMS_ITS | Encounter Summary ---
Author Organization [facility] Address [address] [place] [address] Phone Care Team Providers Care Mosaic Worker Name Role Phone Quang Locke Unavailable [phone] Silvio Schulte MD Unavailable [phone] Werner Swift MD Unavailable Liz Capellan DO Primary Care Provider [phone] Reason for Visit * Reason Onset Date Comments Medication Management 05/01/2024 Encounter Details Date Type Department Care Team (Late st Contact Info) Description 05/01/2024 Telephone [facility] [address] [place] [address] Liz Capellan DO 2 . [facility] [address] [place] [address] Medication Management Social History Tobacco Use Types Packs/Day Years Used Date Smoking Tobacco: Former Cigarettes 2 50 1 - 03/16/2018 Smokeless Tobacco: Never Comments:Still uses nictoine patches and gum Alcohol Use Standard Drinks/Week Comments No 0 (1 standard drink = 0.6 oz pur e alcohol) [facility] Utilities Answer Date Recorded In the past [...] declined 04/27/2024 How often do you attend evangelical or sabianism serv ices? Patient declined 04/27/2024 Do you belong to any clubs o r organizations such as evangelical groups, unions, fraternal or athletic groups, or [...] Total Score - Questions 1-9 4 10/25 [facility] - Occupational Stress [...] place to sleep or slept in a longterm (including now)? No 07/13/2023 Housing Stability Vital Sign Answer Richar e Recorded In the last 12 months, was t here a time when you were not able to pay the mortgage or rent on time? Patient declined 04/27/20 24 In the past 12 months, how m any times have you moved where you were living? 1 04/27/2024 At any time in the past 12 m onths, were you homeless or living in a longterm (including now)? Patient declined 04/27/2024 Education Answer [...] encounter Miscellaneous Notes * Telephone Encounter - Grace Friedman, PT - 05/01/2024 9:47 PM SALES AND MARKETING SPECIALIST S - Medication discrepancies B - Current [facility] patient resumption of care after a hospitalization completed on 05-01-24for SN and PT. A - Patient reports: Requests to add med (med/dose/route/frequency PRN reason) [id number]/phenyleephrine hcl 10mg, take 1 every 4 hours. R - Please review the above med discrepancies and update the medication list in EPIC to reflect theany changes. Notify Home Health when complete to facilitate patient education. S AND MARKETING SPECIALIST documented in this encounter Plan of Treatment Upcoming Encounters Date Type Department Care Team (Late st Contact Info) Description 07/13/2024 1:30 PM SALES AND MARKETING SPECIALIST [facility] #2 [place] [address] Liz Capellan, DO 2 [facility] [address] [place] [address] 07/20/2024 2:15 PM SALES AND MARKETING SPECIALIST Office Visit [facility] Endocrinology [facility] #2 [place] [address] Ana Vivar, LEARNING DISABILITIES RESOURCE TEACHER, DIRECTOR BIOMEDICAL ENGINEERING 2 [facility] [address] [place] [address] Yasmin Restrepo MD #[address] [phone] 07/31/2024 1:00 PM SALES AND MARKETING SPECIALIST [facility] [address] [place] [address] Werner Swift MD #2 [place] [address] Discharge Disposition: Discharged to home or Selfcare 08/03/2024 1:15 PM CDT [facility] #2 [place] [address] Werner Swift MD #2 [place] [address] 09/02/2024 2:00 PM CDT [facility] Res[facility] 1 [place] [address] Werner Swift MD #2 [place] [address] Discharge Disposition: Discharged to home or Selfcare 10/09/2024 2:30 PM CDT Office [facility] Medical [facility] #2 [place] [address] Liz Capellan, DO [address] [address] documented as of this encounter Goals Goal [...] Zones/Action plan education. I will notify my Patient Transition Specialist if my symptoms fall in the y [...] documented as of this encounter Care Teams Mosaic Worker Relationship Specialty Start Date End Date Liz Capellan DO [address] [address] PCP - General Family Medicine 12/27/23 Quang Lcoke DO Gastroenterology 01/18/16 [place] [address] [address] 05/25/21 Werner Swift MD #2 [place] [address] Consulting Physician Pulmonary Disease 01/30/22 documented as of this encounter
--- OUTSIDE RECORDS SUMMARY | 2024-07-10 13:40 | XMS_ITS | Encounter Summary ---
Author Organization [facility] Address [address] [place] [address] Phone Care Team Providers Care Subcontracts Manager Name Role Phone Quang Locke Unavailable [phone] Silvio Schulte MD Unavailable [phone] Werner Swift MD Unavailable Liz Capellan DO Primary Care Provider [phone] Encounter Details Date Type Department Care Team (Late st Contact Info) Description 05/04/2024 Lab Requisition [facility] Services 1 [place] [address] Liz Capellan DO [address] [address] Pneumonia, unspecified organism Social History Tobacco Use Types Packs/Day Years Used Date Smoking Tobacco: Former Cigarettes 2 50 1 - 03/16/2018 Smokeless Tobacco: Never Comments:Still uses nictoine patches and gum Alcohol Use Standard Drinks/Week Comments No 0 (1 standard drink = 0.6 oz pur e alcohol) [facility] Utilities Answer Date Recorded In [...] declined 04/27/2024 How often do you attend worship or zoroastrian serv ices? Patient declined 04/27/2024 Do you belong to any clubs o r organizations such as worship groups, unions, fraternal or athletic groups, or [...] Total Score - Questions 1-9 4 10/25 [facility]at [facility] - Occupational Stress [...] place to sleep or slept in a custodial (including now)? No 07/13/2023 Housing Stability Vital [...] any time in the past [address] [facility], were you homeless or living in a custodial (including now)? Patient declined 04/27/2024 Education Answer [...] st Contact Info) Description 07/13/2024 1:30 PM GLUER MACHINE SETUP OPERATOR Office Visit [facility] - Family [facility] #2 [place] [address] Liz Capellan L, DO 2 [facility] [address] [place] [address] 07/20/2024 2:15 PM GLUER MACHINE SETUP OPERATOR Office Visit [facility] - Endocrinology - [place] #2 [place] [phone] Ana Vivar, BLOWER ROOM ATTENDANT, HEALTH AND SAFETY REPRESENTATIVE 2 [facility] [address] [place] [address] Yasmin Restrepo MD #[address] [phone] 07/31/2024 1:00 PM GLUER MACHINE SETUP OPERATOR [facility] [address] [place] [phone] Werner Swift MD [address]2 [place] [phone] Discharge Disposition: Discharged to home or Selfcare 08/03/2024 1:15 PM CDT Office Visit [facility] - Pulmonology & Sleep Medicine [facility] #2 [place] [address] Werner Swift MD #2 [place] [address] 09/02/2024 2:00 PM CDT [facility] 1 [place] [phone] Werner Swift MD #2 [place] [phone] Discharge Disposition: Discharged to home or Selfcare 10/09/2024 2:30 PM CDT Office Visit [facility] - Family [facility] [place] [address] [place] [address] Liz Capellan, DO [address] [facility] [address] [place] [place] [place] [address] documented as of this encounter Goals Goal [...] Zones/Action plan education. I will notify my Arboriculture Instructor if my symptoms fall in the y ellow zone . I will consider receiving an influenza and pneumonia vaccination, if applicable. -I will call the office if I experience any symptoms listed above to discuss at home management options. documented as of this encounter Procedures Procedure Name Priority Date/Time Associated Diagnosis Comments CBC WITH AUTO DIFFERENTIAL Routine 05/04/2024 9:30 AM GLUER MACHINE SETUP OPERATOR Pneumonia, unspecified organism THYROXINE (T4) TOTAL Routine 05/04/2024 9:30 AM GLUER MACHINE SETUP OPERATOR Pneumonia, unspecified organism COMPLETE BLOOD COUNT (CBC) WITH DIFF Routine 05/04/2024 9:30 AM GLUER MACHINE SETUP OPERATOR Pneumonia, unspecified organism BASIC METABOLIC PANEL W/ CALCIUM TOTAL Routine 05/04/2024 9:30 AM GLUER MACHINE SETUP OPERATOR Pneumonia, unspecified organism documented in this encounter Results * (ABNORMAL) CBC WITH AUTO DIFFERENTIAL (05/04/2024 9:30 AM GLUER MACHINE SETUP OPERATOR) WBC 6.71 4.00 - 12.00 10(3)/mcL 05/04/2024 11:14 AM [facility] RBC 3.50(L) 3.80 - 5.30 10(6)/mcL 05/04/2024 11:14 AM [facility] HEMOGLOBIN (HGB) 12.5 12.0 - 15.8 g/dL 05/04/2024 11:14 AM [facility] HEMATOCRIT (HCT) 37.2 36.0 - 47.0 % 05/04/2024 11:14 AM [facility] MCV 106.3(H) 82.0 - 96.0 fL 05/04/2024 11:14 AM [facility] MCH 35.7(H) 26.0 - 34.0 pg 05/04/2024 11:14 AM [facility] MCHC 33.6 31.0 - 36.0 g/dL 05/04/2024 11:14 AM [facility] PLATELET COUNT 358 140 - 440 10(3)/mcL 05/04/2024 11:14 AM [facility] RDW 12.0 11.8 - 15.5 % 05/04/2024 11:14 AM [facility] MPV 9.5(L) 9.7 - 12.4 fL 05/04/2024 11:14 AM [facility] NEUTROPHILS 59.1 47.0 - 73.0 % 05/04/2024 11:14 AM [facility] LYMPHOCYTES 31.0 18.0 - 42.0 % 05/04/2024 11:14 AM GLUER MACHINE SETUP OPERATOR [facility] MONOCYTES 9.5 4.0 - 12.0 % 05/04/2024 11:14 AM [facility] EOSINOPHILS 0.1 0.0 - 5.0 % 05/04/2024 11:14 AM [facility] BASOPHILS 0.3 0.0 - 1.0 % 05/04/2024 11:14 AM [facility] ABSOLUTE NEUTROPHILS 3.96 1.60 - 7.70 10(3)/[facility] 05/04/2024 11:14 AM GLUER MACHINE SETUP OPERATOR [facility] ABSOLUTE LYMPHOCYTES 2.08 1.30 - 3.20 10(3)/[facility] 05/04/2024 11:14 AM [facility] ABSOLUTE MONOCYTES 0.64 0.20 - 1.00 10(3)/[facility] 05/04/2024 11:14 AM [facility] ABSOLUTE EOSINOPHIL 0.01 0.00 - 0.40 10(3)/[facility] 05/04/2024 11:14 AM [facility] ABSOLUTE BASOPHILS 0.02 0.00 - 0.10 10(3)/[facility] 05/04/2024 11:14 AM [facility] NRBC PER 100 WBC 0 05/04/20 24 11:14 AM [facility] RESULTS ARE CONSISTENT WITH PERIPHERAL SMEAR REVIEW Yes 05/04/2024 11:14 AM [facility] RBC MORPHOLOGY CONSISTENT WITH INDICES Yes 05/04/2024 11:14 AM [facility] Blood No Phlebotomy Charged / Unknown 05/04/2024 9:30 AM GLUER MACHINE SETUP OPERATOR 05/04/2024 10:31 AM GLUER MACHINE SETUP OPERATOR us Liz Capellan DO HEMATOLOGY ORDERABLES Final R esult [facility] #[address] [place] [address] * THYROXINE (T4) TOTAL (05/04/2024 9:30 AM GLUER MACHINE SETUP OPERATOR) Pathologist [facility] T4 8.1 5.0 - 13.0 mcg/dL 05/04/2024 11:47 AM [facility] Blood No Phlebotomy Charged / Unknown 05/04/2024 9:30 AM GLUER MACHINE SETUP OPERATOR 05/04/2024 10:31 AM GLUER MACHINE SETUP OPERATOR us Liz Capellan DO CHEMISTRY ORDERABLES Final Re sult [facility] #[address] [place] [address] * (ABNORMAL) BASIC METABOLIC PANEL W/ CALCIUM TOTAL (05/04/2024 9:30 AM GLUER MACHINE SETUP OPERATOR) [facility] SODIUM 132(L) 136 - 145 mmol/L 05/04/2024 11:27 AM [facility] POTASSIUM 4.2 3.5 - 5.1 mmol/L 05/04/2024 11:27 AM [facility] CHLORIDE 99 98 - 107 mmol/L 05/04/2024 11:27 AM [facility] CO2, VENOUS 27 22 - 30 mmol/L 05/04/2024 11:27 AM [facility] ANION GAP 10.2 <18.0 mmol/L 05/04/2024 11:27 AM [facility] GLUCOSE 80 70 - 99 mg/dL 05/04/2024 11:27 AM [facility] BUN 31(H) 10 - 20 mg/dL 05/04/2024 11:27 AM [facility] CREATININE, BLOOD 1.04(H) 0.60 - 1.00 mg/dL 05/04/2024 11:27 AM [facility] BUN/CREATININE RATIO 30(H) 12 - 20 ratio 05/04/2024 11:27 AM [facility] CALCIUM 9.0 8.7 - 10.5 mg/dL 05/04/2024 11:27 AM [facility] GFR, ESTIMATED 56(L) >=60 05/04/2024 11:27 AM GLUER MACHINE SETUP OPERATOR [facility] Comment: Creatinine Clearance is the preferred criteria for selecting drug dose adjustments in renally impaired patients. The GFR is provided as additional pertinent clinical information. GFR is reported in mL/min/1.73 sq m. Calculation based on the Chronic Kidney Disease Epidemiology Collaboration (CKD- EPI) equation refit without adjustment for race. GFR, EST. >60 >=60 024 11:27 AM GLUER MACHINE SETUP OPERATOR [facility] GFR, EST. NONAFRICAN 52(L) >=60 05/04/2024 11:27 AM GLUER MACHINE SETUP OPERATOR [facility] Blood No Phlebotomy Charged / Unknown 05/04/2024 9:30 AM GLUER MACHINE SETUP OPERATOR 05/04/2024 10:31 AM GLUER MACHINE SETUP OPERATOR us Liz Capellan DO CHEMISTRY ORDERABLES Final Re sult [facility] #[address] [place] [address] documented in this encounter Visit Diagnoses Diagnosis Pneumonia, unspecified organism documented in this encounter Additional Health Concerns Infection Onset Date Last Indicated Resolved Time Stenotrophomonas maltophilia Comment:Must have a follow up respiratory sample to remove isolation flag. 10/20/2021 10/20/2021 Assessment Noted Time PHQ-9 Depression Total Score: 4 11/08/19 24 9:33 AM CDT documented as of this encounter Care Teams Subcontracts Manager Relationship Specialty Start Date End Date Liz Capellan DO [address] [address] PCP - General Family Medicine 12/27/23 Quang Locke DO Gastroenterology 01/18/16 [place] [id number] [address] 05/25/21 Werner Swift MD #2 [place] [address] Consulting Physician Pulmonary Disease 01/30/22 documented as of this encounter
--- OUTSIDE RECORDS SUMMARY | 2024-07-10 13:40 | XMS_ITS | Encounter Summary ---
Author Organization [facility] Address [address] [place] [address] Phone Care Team Providers Care Steeler Name Role Phone Quang Locke DO Unavailable [phone] Keith Craft MD Primary Care Provider [phone] Silvio Schulte MD Unavailable [phone] Werner Swift MD Unavailable Liz Capellan DO Primary Care Provider [phone] Reason for Visit * Reason Comments Medication Refill Encounter Details Date Type Department Care Team (Late st Contact Info) Description 07/17/2023 Refill [facility] [address] [place] [phone] Keith Craft MD [address] [place] [address] Medication Refill Social History Tobacco Use Types Packs/Day Years Used Date Smoking Tobacco: Former Cigarettes 2 50 1 - 03/16/2018 Smokeless Tobacco: Never Comments:Still uses nictoine patches and gum Alcohol Use Standard Drinks/Week Comments No 0 (1 standard drink = 0.6 oz pur e alcohol) [facility] Utilities Answer Date Recorded [...] often do you attend chur ch or sabianism services? Never 07/13/2023 Do you belong to any clubs o r organizations such as amish groups, unions, fraternal or athletic groups, or [...] Score - Questions 1-9 0 /0 08/2021 [facility] [place] [facility] Occupat ional Health - Occupational Stress [...] place to sleep or slept in a fdc (including now)? No 07/13/2023 Education Answer Date [...] Telephone Encounter - Kelin Nance RN - 07/17/2023 1:06 PM BURN OUT TENDER LACE No protocol information Per nursing clinical judgement, provider to review and approve the medication(s) order(s) if appropriate. Requested Prescriptions Pending Prescriptions Disp Refills Basaglar KwikPen 100 UNIT/ML Solution Pen-injector [Pharmacy Med Name: BASAGLAR KWIKPEN 100UNIT SOLN PEN-INJ] 45 mL 4 Sig: INJECT 15 UNITS SUBCUTANEOUS DAILY There is no refill protocol information for this order OUT TENDER LACE documented in this encounter Plan of Treatment Upcoming Encounters Date Type Department Care Team (Late st Contact Info) Description 07/13/2024 1:30 PM BURN OUT TENDER LACE Office Visit [facility] - Family Medicine - [place] [address]2 [place] [address] Liz Capellan L, DO 2 [facility] [address] [place] [address] 07/20/2024 2:15 PM BURN OUT TENDER LACE [facility] [place] #2 [facility] [phone] Ana Vivar N, JAVASCRIPT SOFTWARE ENGINEER, SUPERVISOR SHOW OPERATIONS [address] [address] Yasmin Restrepo MD #[address] [phone] 07/31/2024 1:00 PM BURN OUT TENDER LACE [facility] [address] [place] [address] Werner Swift MD #2 [place] [phone] Discharge Disposition: Discharged to home or Selfcare 08/03/2024 1:15 PM CDT [facility] - Pulmonology & Sleep Medicine - [place] #2 [place] [address] Werner Swift MD #2 [place] [phone] 09/02/2024 2:00 PM CDT [facility] 1 [facility] [place] [phone] Werner Swift MD #[address] [place] [phone] Discharge Disposition: Discharged to home or Selfcare 10/09/2024 2:30 PM CDT Office Visit [facility] - Family Medicine [facility] #[address] [place] [phone] Liz Capellan, DO 2 [facility] [address] [facility]. [address] [place] [address] documented as of this encounter Goals Goal [...] Zones/Action plan education. I will notify my Security Attendant if my symptoms fall in the y [...] isolation flag. 10/20/2021 10/20/2021 COVID - 19 07/13/2023 07/13/2023 07/23/2023 12:1 6 AM BURN OUT TENDER LACE Respiratory Rule Out - RPA 03/17/2024 03/17/2024 1 3:36 PM CDT COVID - 19 04/27/2024 04/27/2024 04/27/2024 2:19 PM BURN OUT TENDER LACE Assessment Noted Time PHQ-9 Depression Total Score: 1 03/07/20 21 10:29 AM CDT documented as of this encounter Care Teams Steeler Relationship Specialty Start Date End Date Keith Craft MD PCP - General Family Medicine 01/14/19 12/26/23 Liz Capellan DO [address] [address] PCP - General Family Medicine 12/27/23 Quang Locke DO Gastroenterology 01/18/16 [place] [id number] [address] 05/25/21 Werner Swift MD #2 [place] [phone] Consulting Physician Pulmonary Disease 01/30/22 documented as of this encounter
--- OUTSIDE RECORDS SUMMARY | 2024-07-10 13:40 | XMS_ITS | Encounter Summary ---
Author Organization [facility] Address [address] [place] [address] Phone Care Team Providers Care Deputy Sheriff Civil Division Name Role Phone Quang Locke Unavailable [phone] Keith Craft MD Primary Care Provider [phone] Bri Rollins RN Unavailable Unavailable Silvio Schulte MD Unavailable [phone] Bri Rollins RN Unavailable Unavailable Werner Swift MD Unavailable Liz Capellan DO Primary Care Provider [phone] Reason for Visit * Reason Comments Medication Refill Encounter Details Date Type Department Care Team (Late st Contact Info) Description 12/19/2021 Refill [facility] [address]2 [place] [address] Keith Craft MD [address]1 [place] [address] Medication Refill Social History Tobacco Use Types [...] Telephone Encounter - Gloria Cornejo RN - 12/20/2021 8:41 AM CDT Medication failed the protocol, provider to review and approve the medication order if appropriate. Requested Prescriptions Pending Prescriptions Disp Refills levothyroxine (SYNTHROID) 50 MCG Tablet [Pharmacy Med Name: LEVOTHYROXINE SODIUM 50MCG TABLET] 90 Tablet 2 Sig: TAKE ONE TABLET BY MOUTH DAILY Thyroid Hormones Protocol Passed - 12/19/2021 11:20 AM Passed - Visit with relevant provider in past 12 months or upcoming 90 days Recent Visits Date Type Provider Dept 11/03/21 Office Visit Keith Craft MD [facility] 10/19/21 Office Visit Keith Craft MD [facility] 10/05/21 Office Visit Keith Craft MD [facility] 09/08/21 Office Visit Brie Denis, PAC [facility] 08/14/21 Office Visit Keith Craft MD [facility] 07/31/21 Office Visit Keith Craft MD [facility] 05/25/21 Office Visit Marcin Anderson APRN, EVENT REPRESENTATIVE [facility] 05/05/21 Office Visit Brie Denis, PAC [facility] 04/14/21 Office Visit Keith Craft MD [facility] 03/23/21 Office Visit Keith Craft MD [facility] Showing recent visits within past 365 days and meeting all other requirements Future Appointments Date Type Provider Dept 03/09/22 Appointment Keith Craft MD [facility] Showing future appointments within next 90 days and meeting all other requirements Passed - Normal TSH in past 12 months TSH Date Value Ref Range Status 10/19/2021 0.505 0.270 - 4.200 mIU/L Final valACYclovir (VALTREX) 500 MG Tablet [Pharmacy Med Name: VALACYCLOVIR HYDROCHLORIDE 500MG TABLET] 90 Tablet 2 Sig: TAKE ONE TABLET BY MOUTH EVERY DAY AT NIGHT Not Delegated - Herpes Agents Protocol Failed - 12/19/2021 11:20 AM Failed - This refill cannot be delegated Passed - Visit with relevant provider in past 12 months or upcoming 90 days Recent Visits Date Type Provider Dept 11/03/21 Office Visit Keith Craft MD [facility] 10/19/21 Office Visit Keith Craft MD [facility] 10/05/21 Office Visit Keith Craft MD [facility] 09/08/21 Office Visit Brie Denis, PAC [facility] 08/14/21 Office Visit Keith Craft MD [facility] 07/31/21 Office Visit Keith Craft MD [facility] 05/25/21 Office Visit Marcin Anderson APRN, EVENT REPRESENTATIVE [facility] 05/05/21 Office Visit Brie Denis, PAC [facility] 04/14/21 Office Visit Keith Craft MD [facility] 03/23/21 Office Visit Keith Craft MD [facility] Showing recent visits within past 365 days and meeting all other requirements Future Appointments Date Type Provider Dept 03/09/22 Appointment Keith Craft MD [facility] Showing future appointments within next 90 days and meeting all other requirements ergocalciferol (VITAMIN D) 51721 UNIT Capsule [Pharmacy Med Name: VITAMIN D [id number] CAPSULE] 12 Capsule 0 Sig: TAKE ONE CAPSULE BY MOUTH ONE TIME WEEKLY Vitamin Supplements (Adult) Protocol Failed - 12/19/2021 11:20 AM Failed - Vitamin D less than 1.25mg Passed - Visit with relevant provider in past 12 months or upcoming 90 days Recent Visits Date Type Provider Dept 11/03/21 Office Visit Keith Carft MD [facility] 10/19/21 Office Visit Keith Craft MD [facility] 10/05/21 Office Visit Keith Craft, MD [facility] 09/08/21 Office Visit Brie Denis, PAC [facility] 08/14/21 Office Visit Keith Craft, MD [facility] 07/31/21 Office Visit Keith Craft MD [facility] 05/25/21 Office Visit Marcin Anderson APRN, EVENT REPRESENTATIVE [facility] 05/05/21 Office Visit Brie Denis, PAC [facility] 04/14/21 Office Visit Keith Craft MD [facility] 03/23/21 Office Visit Keith [facility] Showing recent visits within past 365 days and meeting all other requirements Future Appointments Date Type Provider Dept 03/09/22 Appointment Keith Craft MD [facility] Showing future appointments within next 90 days and meeting all other requirements Ventolin HFA 108 (90 Base) MCG/ACT Aerosol Solution [Pharmacy Med Name: VENTOLIN HFA AEROSOL SOLN] 18 g 1 Sig: USE TWO (2) PUFF(S) BY INHALATION ROUTE EVERY FOUR (4) HOURS NEEDED WHEEZING Short Acting Inhaled Beta-Agonists Protocol Passed - 12/19/2021 11:20 AM Passed - Visit with relevant provider in past 12 months or upcoming 90 days Recent Visits Date Type Provider Dept 11/03/21 Office Visit Keith Craft MD [facility] 10/19/21 Office Visit Keith Craft MD [facility] 10/05/21 Office Visit Keith Craft MD [facility] 09/08/21 Office Visit Brie Denis, PAC [facility] 08/14/21 Office Visit Keith Craft MD [facility] 07/31/21 Office Visit Keith Craft MD [facility] 05/25/21 Office Visit Marcin Anderson, CYTOPATHOLOGY TECHNOLOGIST, EVENT REPRESENTATIVE [facility] 05/05/21 Office Visit Brie Denis, PAC [facility] 04/14/21 Office Visit Keith Craft MD [facility] 03/23/21 Office Visit Keith Craft MD [facility] Showing recent visits within past 365 days and meeting all other requirements Future Appointments Date Type Provider Dept 03/09/22 Appointment Keith Craft MD [facility] Showing future appointments within next 90 days and meeting all other requirements documented in this encounter Plan of Treatment Upcoming Encounters Date Type Department Care Team (Late st Contact Info) Description 07/13/2024 1:30 PM PLASTIC SHEETS FINISHING SUPERVISOR Office Visit [facility] - Family Medicine [facility] [address] [place] [address] Liz Capellan, [address] [address] 07/20/2024 2:15 PM PLASTIC SHEETS FINISHING SUPERVISOR Office Visit [facility] - Endocrinology - [facility] [address]2 [place] [address] Ana Vivar, CYTOPATHOLOGY TECHNOLOGIST, EVENT REPRESENTATIVE 2 [facility] [address] [place] [address] Yasmin Restrepo MD #[address] [place] [address] 07/31/2024 1:00 PM PLASTIC SHEETS FINISHING SUPERVISOR [facility] [address] [place] [address] Werner Swift MD [address]2 [place] [address] Discharge Disposition: Discharged to home or Selfcare 08/03/2024 1:15 PM CDT [facility] #2 [place] [address] Werner Swift MD #2 [place] [address] 09/02/2024 2:00 PM CDT Appointment [facility] Respiratory Therapy [address] [place] [address] Werner Swift MD [address] [place] [address] Discharge Disposition: Discharged to home or Selfcare 10/09/2024 2:30 PM CDT Office [facility] Medical [facility] Family Medicine [facility] [address] [place] [address] Liz Capellan, DO [address] [address] documented as of this encounter Goals Goal [...] Zones/Action plan education. I will notify my Engagement Director if my symptoms fall in the y ellow zone . I will consider receiving an influenza and pneumonia vaccination, if applicable. -I will call the office if I experience any symptoms listed above to discuss at home management options. documented as of this encounter Visit Diagnoses Diagnosis Acquired hypothyroidism Unspecified hypothyroidism Pulmonary emphysema, unspecified emphysema type (HCC) documented in this encounter Additional Health Concerns Infection Onset Date Last Indicated Resolved Time Stenotrophomonas maltophilia Comment:Must have a follow up respiratory sample to remove isolation flag. 10/20/2021 10/20/2021 COVID - 19 04/20/2022 04/20/2022 04/30/2022 12:1 8 AM PLASTIC SHEETS FINISHING SUPERVISOR COVID - 19 07/18/2022 07/18/2022 07/28/2022 12:1 6 AM PLASTIC SHEETS FINISHING SUPERVISOR COVID - 19 08/21/2022 08/21/2022 08/22/2022 8:31 AM CDT Respiratory Rule Out - RPA 08/21/2022 08/21/2022 0 08/22/2022 3:21 PM CDT COVID - 19 04/18/2023 04/18/2023 04/28/2023 12:1 6 AM PLASTIC SHEETS FINISHING SUPERVISOR COVID - 19 07/13/2023 07/13/2023 07/23/2023 12:1 6 AM PLASTIC SHEETS FINISHING SUPERVISOR Respiratory Rule Out - RPA 03/17/2024 03/17/2024 1 3:36 PM CDT COVID - 19 04/27/2024 04/27/2024 04/27/2024 2:19 PM PLASTIC SHEETS FINISHING SUPERVISOR Assessment Noted Time PHQ-9 Depression Total Score: 1 03/07/20 21 10:29 AM CDT documented as of this encounter Care Teams Deputy Sheriff Civil Division Relationship Specialty Start Date End Date Keith Craft MD PCP - General Family Medicine 01/14/19 12/26/23 Liz Capellan DO [address] [address] PCP - General Family Medicine 12/27/23 Quang Locke DO Gastroenterology 01/18/16 Bri Rollins, RN [place] Engagement Director 03/07/21 05/22/23 [place] [id number] [address] 05/25/21 Bri Rollins, RN [place] Nurse Engagement Director 03/07/21 05/23/23 Werner Swift MD [address] [place] [address] Consulting Physician Pulmonary Disease 01/30/22 documented as of this encounter
--- OUTSIDE RECORDS SUMMARY | 2024-07-10 13:41 | XMS_ITS | Encounter Summary ---
Author Organization [facility] Address [address] [place] [address] Phone Care Team Providers Care Staff Nurse Anesthetist Name Role Phone Quang Locke Unavailable [phone] Keith Craft MD Primary Care Provider [phone] Bri Rollins RN Unavailable Unavailable Silvio Schulte MD Unavailable [phone] Bri Rollins RN Unavailable Unavailable Werner Swift MD Unavailable Liz Capellan DO Primary Care Provider [phone] Reason for Visit * Reason Comments Medication Refill Encounter Details Date Type Department Care Team (Late st Contact Info) Description [facility]/11/2020 [facility] [address] [place] [address] Keith Craft MD [address] [place] [address] Medication Refill Social History Tobacco Use Types Packs/Day Years Used Date Smoking Tobacco: Former Cigarettes 2 50 1 - 03/16/2018 Smokeless Tobacco: Never Comments:Still uses nictoine patches and gum Alcohol Use Standard Drinks/Week Comments No 0 (1 standard drink = 0.6 oz pur e alcohol) PHQ-2 Answer Date Recorded Total Score - Questions 1-9 2 05/27 Comments No Sex and Gender Information Value Date Recorded Sex Assigned at Not on file Legal Sex Female 11:08 PM CDT Gender Identity Not on file Sexual Orientation Not on file Occupation Industry Job Start Date Job End Date disability Not on file Not on file Not on file COVID-19 Exposure Response Date Recorded In the last month, have you been in contact with someone who was confirmed or suspected to have Coronavirus / COVID-19? No / Unsure 10/12/2020 1:32 PM CDT documented as of this encounter Miscellaneous Notes * Telephone Encounter - Gloria Cornejo RN - 10/12/2020 10:28 AM CDT Medication failed the protocol, provider to review and approve the medication order if appropriate. Requested Prescriptions Pending Prescriptions Disp Refills albuterol (PROVENTIL, VENTOLIN) (2.5 MG/3ML) 0.083% Nebulizer Soln [Pharmacy Med Name: ALBUTEROL SUL 2.5 MG/3 ML SOLN] 1050 mL 1 Sig: USE 1 VIAL PER NEBULIZER 4 TIMES A DAY [facility]: Beta Agonists - Albuterol & Levalbuterol Failed - 10/11/2020 3:24 PM Failed - May refill 2 inhalers, 0 refills one time since last office visit. May refill #50 nebulizer vials, 0 refills for albuterol or #48 vials, 0 refills for Xopenex one time since last office visit. Passed - Valid encounter within last 6 months Past Office Visits Recent Outpatient Visits 1 week ago Hypoglycemia [facility] - Keith Jenkins MD 4 months ago Mixed hyperlipidemia [facility] Medical [facility] - Family Medicine Keith Lemus MD 5 months ago Pneumonia of right upper lobe due to infectious organism [facility] Family Medicine Keith Lemus MD 8 months ago Acute non-recurrent maxillary sinusitis [facility] Family [facility] Keith Lemus MD 11 months ago Chronic prescription opiate use [facility] Keith Craft MD Upcoming Appointments Future Appointments Today Keith Craft MD [facility] - [place] [facility] In 2 months Keith Craft MD [facility] - [place], [facility] - Recent and Past Visits Recent Visits Date Type Provider Dept 10/04/20 Office Visit Keith Craft MD [facility] 06/07/20 Office Visit Keith Craft MD [facility] 04/25/20 Office Visit Keith Craft MD [facility] 02/02/20 Office Visit Keith Craft MD [facility] 11/02/19 Office Visit Keith Craft MD [facility] 07/27/19 Office Visit Keith Craft MD [facility] Showing recent visits within past 460 days with a meds authorizing provider and meeting all other requirements Today's Visits Date Type Provider Dept 10/12/20 Appointment Keith Craft MD [facility] Showing today's visits with a meds authorizing provider and meeting all other requirements Future Appointments Date Type Provider Dept 01/04/21 Appointment Keith Craft MD [facility] Showing future appointments within next 90 days with a meds authorizing provider and meeting all other requirements Passed - Last BP in normal range BP Readings from Last 1 Encounters: 10/04/20 98/48 documented in this encounter Plan of Treatment Upcoming Encounters Date Type Department Care Team (Late st Contact Info) Description 07/13/2024 1:30 PM RECOVERY ROOM NURSE Office Visit [facility] [address] [place] [address] Liz Capellan, DO 2 [facility] [address] [address] 07/20/2024 2:15 PM RECOVERY ROOM NURSE Office Visit [facility] - Endocrinology [facility] #2 [facility] [place] [address] Ana Vivar, [employer], BILLING REP [address] [place] [address] Yasmin Restrepo MD #[address] [place] [address] 07/31/2024 1:00 PM RECOVERY ROOM NURSE [facility] [address] [place] [address] Werner Swift MD [address] [place] [address] Discharge Disposition: Discharged to home or Selfcare 08/03/2024 1:15 PM CDT Office Visit [facility] - Pulmonology & Sleep Medicine [facility] #2 [place] [address] Werner Swift MD [address] [place] [address] 09/02/2024 2:00 PM CDT [facility]ointment [facility] Res[facility] 1 [place] [address] Werner Swift MD [address]2 [place] [address] Discharge Disposition: Discharged to home or Selfcare 10/09/2024 2:30 PM CDT Office Visit [facility] - Family Medicine [facility] #2 [place] [address] Liz Capellan, DO 2 [facility] [address] [place] [address] documented as of this encounter Visit Diagnoses Not on filedocumented in this encounter Additional Health Concerns Infection Onset Date Last Indicated Resolved Time COVID - 19 01/25/2021 01/25/2021 01/31/2021 8:10 AM CDT Respiratory Rule Out - RPA 01/30/2021 01/30/2021 0 02/01/2021 12:45 AM CDT COVID - 19 07/23/2021 07/23/2021 07/24/2021 6:31 AM RECOVERY ROOM NURSE COVID - 19 10/19/2021 10/19/2021 10/20/2021 7:45 AM CDT Respiratory Rule Out - RPA 10/19/2021 10/19/2021 0 10/20/2021 2:10 PM CDT Stenotrophomonas maltophilia Comment:Must have a follow up respiratory sample to remove isolation flag. 10/20/2021 10/20/2021 COVID - 19 04/20/2022 04/20/2022 04/30/2022 12:1 8 AM RECOVERY ROOM NURSE COVID - 19 07/18/2022 07/18/2022 07/28/2022 12:1 6 AM RECOVERY ROOM NURSE COVID - 19 08/21/2022 08/21/2022 08/22/2022 8:31 AM CDT Respiratory Rule Out - RPA 08/21/2022 08/21/2022 0 08/22/2022 3:21 PM CDT COVID - 19 04/18/2023 04/18/2023 04/28/2023 12:1 6 AM RECOVERY ROOM NURSE COVID - 19 07/13/2023 07/13/2023 07/23/2023 12:1 6 AM RECOVERY ROOM NURSE Respiratory Rule Out - RPA 03/17/2024 03/17/2024 1 3:36 PM CDT COVID - 19 04/27/2024 04/27/2024 04/27/2024 2:19 PM RECOVERY ROOM NURSE Assessment Noted Time PHQ-9 Depression Total Score: 2 06/07/19 21 2:34 PM RECOVERY ROOM NURSE documented as of this encounter Care Teams Staff Nurse Anesthetist Relationship Specialty Start Date End Date Keith Craft MD PCP - General Family Medicine 01/14/19 12/26/23 Liz Capellan DO [address] [address] PCP - General Family Medicine 12/27/23 Quang Locke DO Gastroenterology 01/18/16 Bri Rollins, RN [place] [employer]og Patching Machine Operator 03/07/21 05/22/23 [place] [address] [address] 05/25/21 Bri Rollins, RN [place] Nurse [employer] Patching Machine Operator 03/07/21 05/23/23 Werner Swift MD [address] [place] [address] Consulting Physician Pulmonary Disease 01/30/22 documented as of this encounter
--- OUTSIDE RECORDS SUMMARY | 2024-07-10 13:41 | XMS_ITS | Encounter Summary ---
Author Organization [facility] Address [address] [place] [address] Phone Care Team Providers Care Recoating Machine Operator Name Role Phone Quang Locke Unavailable [phone] Keith Craft MD Primary Care Provider [phone] Bri Rollins RN Unavailable Unavailable Silvio Schulte MD Unavailable [phone] Bri Rollins RN Unavailable Unavailable Werner Swift MD Unavailable Liz Capellan DO Primary Care Provider [phone] Reason for Visit * Reason Comments Medication Refill Encounter Details Date Type Department Care Team (Late st Contact Info) Description 01/22/[address] [facility] Medical [address] [place] [address] Keith Craft MD [address] [place] [address] Medication Refill Social History Tobacco Use Types [...] Telephone Encounter - Gloria Cornejo RN - 01/23/2022 9:04 AM CDT Per nursing clinical judgement, provider to review and approve the medication(s) order(s) if appropriate. Requested Prescriptions Pending Prescriptions Disp Refills rosuvastatin (CRESTOR) 20 MG Tablet [Pharmacy Med Name: ROSUVASTATIN CALCIUM 20MG TABLET] 90 Tablet1 Sig: TAKE ONE (1) TABLET BY MOUTH NIGHTLY. There is no refill protocol information for this order Basaglar KwikPen 100 UNIT/ML Solution Pen-injector [Pharmacy Med Name: BASAGLAR KWIKPEN 100UNIT SOLN PEN-INJ] 45 mL 4 Sig: INJECT 15 UNITS SUBCUTANEOUS DAILY There is no refill protocol information for this order documented in this encounter Plan of Treatment Upcoming Encounters Date Type Department Care Team (Late st Contact Info) Description 07/13/2024 1:30 PM SENIOR SPECIALIST Office Visit [facility] - Family Medicine - [place] [address] [place] [address] Liz Capellan L, DO [address] [address] 07/20/2024 2:15 PM SENIOR SPECIALIST Office Visit [facility] - Endocrinology - [place] [address]2 [place] [address] Oehl, Ana N, STATIONARY PLANT OPERATORS, SURVEYOR INSTRUMENT ASSISTANT 2 [facility] GUI [facility] [address] [place] [address] Yasmin Restrepo MD #2 [facility] [address] [place] [address] 07/31/2024 1:00 PM SENIOR SPECIALIST [facility] [address] [place] [address] Werner Swift MD #2 [place] [address] Discharge Disposition: Discharged to home or Selfcare 08/03/2024 1:15 PM CDT [facility] & [facility] Medicine [facility] #2 [place] [address] Werner Swift MD #2 [place] [address] 09/02/2024 2:00 PM CDT [facility] [address] [place] [address] Werner Swift MD #2 [place] [address] Discharge Disposition: Discharged to home or Selfcare 10/09/2024 2:30 PM CDT Office Visit [facility] #2 [place] [address] Liz Capellan, DO 2 [facility]Y [facility] [address] [place] [address] documented as of this encounter Goals Goal [...] Zones/Action plan education. I will notify my Solutions Executive Security if my symptoms fall in the y [...] 19 04/20/2022 04/20/2022 04/30/2022 12:1 8 AM SENIOR SPECIALIST COVID - 19 07/18/2022 07/18/2022 07/28/2022 12:1 6 AM SENIOR SPECIALIST COVID - 19 08/21/2022 08/21/2022 08/22/2022 8:31 AM CDT Respiratory Rule Out - RPA 08/21/2022 08/21/2022 0 08/22/2022 3:21 PM CDT COVID - 19 04/18/2023 04/18/202304/28/2023 12:1 6 AM SENIOR SPECIALIST COVID - 19 07/13/2023 07/13/2023 07/23/2023 12:1 6 AM SENIOR SPECIALIST Respiratory Rule Out - RPA 03/17/2024 03/17/2024 1 3:36 PM CDT COVID - 19 04/27/2024 04/27/2024 04/27/2024 2:19 PM SENIOR SPECIALIST Assessment Noted Time PHQ-9 Depression Total Score: 1 03/07/20 21 10:29 AM CDT documented as of this encounter Care Teams Recoating Machine Operator Relationship Specialty Start Date End Date Keith Craft MD PCP - General Family Medicine 01/14/19 12/26/23 Liz Capellan DO [address] [address] PCP - General Family Medicine 12/27/23 Quang Locke DO Gastroenterology 01/18/16 Bri Rollins, RN [place] [employer] 03/07/21 05/22/23 [place] [address] [address] 05/25/21 Bri Rollins, RN [place] Nurse [employer] 03/07/21 05/23/23 Werner Swift MD #[address] [place] [address] Consulting Physician Pulmonary Disease 01/30/22 documented as of this encounter
--- OUTSIDE RECORDS SUMMARY | 2024-07-10 13:41 | XMS_ITS | Encounter Summary ---
Author Organization [facility] Address [address] [place] [address] Phone Care Team Providers Care Gun Barrel Finisher Name Role Phone Quang Locke Unavailable [phone] Keith Craft MD Primary Care Provider [phone] Bri Rollins RN Unavailable Unavailable Silvio Schulte MD Unavailable [phone] Bri Rollins RN Unavailable Unavailable Werner Swift MD Unavailable Liz Capellan DO Primary Care Provider [phone] Reason for Visit * Reason Comments Medication Refill Encounter Details Date Type Department Care Team (Late st Contact Info) Description 04/02/2022 Refill [facility] #2 [place] [address] Keith Craft MD #1 [place] [address] Medication Refill Social History Tobacco Use Types [...] suspected to have Coronavirus/COVID-19? No / Unsure 04/03/2022 9:15 AM HAND STONECUTTER documented as of this encounter Miscellaneous Notes * Telephone Encounter - Gloria Cornejo RN - 04/03/2022 7:57 AM CST PDMP 03/03/22 Medication failed the protocol, provider to review and approve the medication order if appropriate. Requested Prescriptions Pending Prescriptions Disp Refills diazePAM (VALIUM) 5 MG Tablet [Pharmacy Med Name: DIAZEPAM 5MG TABLET] 30 Tablet 0 Sig: TAKE ONE (1) TABLET BY MOUTH DAILY NEEDED FOR ANXIETY. Not Delegated - Benzodiazepines Protocol Failed - 04/02/2022 10:15 AM Failed - This refill cannot be delegated Passed - Visit with relevant provider in past 12 months or upcoming 90 days Recent Visits Date Type Provider Dept 03/02/22 Procedure [facility]22 Office Visit Keith Craft MD [facility] 11/03/21 Office Visit Keith Craft MD [facility] 10/19/21 Office Visit Keith Craft MD [facility] 10/05/21 Office Visit Keith Craft MD [facility] 09/08/21 Office Visit Brie Denis, PAC [facility] 08/14/21 Office Visit Keith Craft MD [facility] 07/31/21 Office Visit Keith Craft MD [facility] 05/25/21 Office Visit Marcin Anderson, LANDSCAPE ARCHITECT AND PLANNER, STUDENT ADMISSIONS CLERK [facility] 05/05/21 Office Visit Brie Denis PAC [facility] Showing recent visits within past 365 days and meeting all other requirements Future Appointments Date Type Provider Dept 06/04/22 Appointment Keith Craft MD [facility] Showing future appointments within next 90 days and meeting all other requirements STONECUTTER documented in this encounter Plan of Treatment Upcoming Encounters Date Type Department Care Team (Late st Contact Info) Description 07/13/2024 1:30 PM HAND STONECUTTER [facility] [place] [address]2 [place] [address] Liz Capellan L, DO [address] [address] 07/20/2024 2:15 PM HAND STONECUTTER Office Visit [facility] - Endocrinology - [place] [address]2 [place] [address] Ana Vivar, REBECCA, STUDENT ADMISSIONS CLERK [address] [address] Yasmin Restrepo MD #[address] [phone] 07/31/2024 1:00 PM HAND STONECUTTER [facility] [address] [place] [address] Werner Swift MD [address]2 [place] [address] Discharge Disposition: Discharged to home or Selfcare 08/03/2024 1:15 PM CDT Office Visit [facility] - Pulmonology & Sleep Medicine [facility] #2 [place] [address] Werner Swift MD #2 [place] [address] 09/02/2024 2:00 PM CDT Appointment [facility] Res[facility] Therapy 1 [place] [address] Werner Swift MD #2 [place] [address] Discharge Disposition: Discharged to home or Selfcare 10/09/2024 2:30 PM CDT Office Visit [facility] [place] - [facility] [place] [address]2 [place] [address] Liz Capellan, DO [address] [address] documented as of this encounter Goals Goal [...] Zones/Action plan education. I will notify my Winterizer if my symptoms fall in the y [...] 19 04/20/2022 04/20/2022 04/30/2022 12:1 8 AM HAND STONECUTTER COVID - 19 07/18/2022 07/18/2022 07/28/2022 12:1 6 AM HAND STONECUTTER COVID - 19 08/21/2022 08/21/2022 08/22/2022 8:31 AM CDT Respiratory Rule Out - RPA 08/21/2022 08/21/2022 0 08/22/2022 3:21 PM CDT COVID - 19 04/18/2023 04/18/2023 04/28/2023 12:1 6 AM HAND STONECUTTER COVID - 19 07/13/2023 07/13/2023 07/23/2023 12:1 6 AM HAND STONECUTTER Respiratory Rule Out - RPA 03/17/2024 03/17/2024 1 3:36 PM CDT COVID - 19 04/27/2024 04/27/2024 04/27/2024 2:19 PM HAND STONECUTTER Assessment Noted Time PHQ-9 Depression Total Score: 1 03/07/20 21 10:29 AM CDT documented as of this encounter Care Teams Gun Barrel Finisher Relationship Specialty Start Date End Date Keith Craft MD PCP - General Family Medicine 01/14/19 12/26/23 Liz Capellan DO 2 [facility] [place] [address] PCP - General Family Medicine 12/27/23 Quang Locke DO Gastroenterology 01/18/16 Bri Rollins RN [place] [facility] 03/07/21 05/22/23 [place] [id number] [address] 05/25/21 Bri Rollins, KATEY [place] Nurse [facility] 03/07/21 05/23/23 Werner Swift MD #2 [place] [address] Consulting Physician Pulmonary Disease 01/30/22 documented as of this encounter
--- OUTSIDE RECORDS SUMMARY | 2024-07-10 13:41 | XMS_ITS | Encounter Summary ---
Author Organization [facility] Address [address] [place] [address] Phone Care Team Providers Care Leg Breaker Name Role Phone Quang Locke Unavailable [phone] Keith Craft MD Primary Care Provider [phone] Bri Rollins RN Unavailable Unavailable Silvio Schulte MD Unavailable [phone] Bri Rollins RN Unavailable Unavailable Werner Swift MD Unavailable Liz Capellan DO Primary Care Provider [phone] Reason for Visit * Reason Comments Medication Refill Encounter Details Date Type Department Care Team (Late st Contact Info) Description 03/19/2022 Refill [facility] #2 [place] [address] Keith Craft MD #1 [place] [address] Medication Refill Social History Tobacco Use Types [...] suspected to have Coronavirus/COVID-19? No / Unsure 03/02/2022 8:55 AM CDT documented as of this encounter Miscellaneous Notes * Telephone Encounter - Georgia Roblero RN - 03/19/2022 11:14 AM CDT Refill request too soon. documented in this encounter Plan of Treatment Upcoming Encounters Date Type Department Care Team (Late st Contact Info) Description 07/13/2024 1:30 PM BEAM SAW OPERATOR Office Visit [facility] - Family Medicine [facility] #2 [place] [address] Liz Capellan L, DO [address] [address] 07/20/2024 2:15 PM BEAM SAW OPERATOR Office Visit [facility] - Endocrinology - [place] #2 [place] [address] Ana Vivar, CLOD PULLER, HIGHW[address] PATROL PILOT [address] [address] Yasmin Restrepo MD #[address] [phone] 07/31/2024 1:00 PM BEAM SAW OPERATOR [facility] [address] [place] [address] Werner Swift MD #2 [place] [address] Discharge Disposition: Discharged to home or Selfcare 08/03/2024 1:15 PM CDT Office Visit [facility] - Pulmonology & Sleep Medicine [facility] #2 [place] [address] Werner Swift MD #2 [place] [address] 09/02/2024 2:00 PM CDT [facility] 1 [place] [address] Werner Swift MD #2 [place] [address] Discharge Disposition: Discharged to home or Selfcare 10/09/2024 2:30 PM CDT Office Visit [facility] - Family Medicine - [place] #2 [place] [address] Liz Capellan, DO [address] [address] documented as of this encounter Goals Goal [...] Zones/Action plan education. I will notify my Tip Mender if my symptoms fall in the y [...] 19 04/20/2022 04/20/2022 04/30/2022 12:1 8 AM BEAM SAW OPERATOR COVID - 19 07/18/2022 07/18/2022 07/28/2022 12:1 6 AM BEAM SAW OPERATOR COVID - 19 08/21/2022 08/21/2022 08/22/2022 8:31 AM CDT Respiratory Rule Out - RPA 08/21/2022 08/21/2022 0 08/22/2022 3:21 PM CDT COVID - 19 04/18/2023 04/18/2023 04/28/2023 12:1 6 AM BEAM SAW OPERATOR COVID - 19 07/13/2023 07/13/2023 07/23/2023 12:1 6 AM BEAM SAW OPERATOR Respiratory Rule Out - RPA 03/17/2024 03/17/2024 1 3:36 PM CDT COVID - 19 04/27/2024 04/27/2024 04/27/2024 2:19 PM BEAM SAW OPERATOR Assessment Noted Time PHQ-9 Depression Total Score: 1 03/07/20 21 10:29 AM CDT documented as of this encounter Care Teams Leg Breaker Relationship Specialty Start Date End Date Keith Craft MD PCP - General Family Medicine 01/14/19 12/26/23 Liz Capellan DO [address] [address] PCP - General Family Medicine 12/27/23 Quang Lcoke DO Gastroenterology 01/18/16 Bri Rollins RN [place] Tip Mender 03/07/21 05/22/23 [place] [address] [address] 05/25/21 Bri Rollins RN [place] Nurse Tip Mender 03/07/21 05/23/23 Werner Swift MD #2 [place] [address] Consulting Physician Pulmonary Disease 01/30/22 documented as of this encounter
--- OUTSIDE RECORDS SUMMARY | 2024-07-10 13:41 | XMS_ITS | Encounter Summary ---
Author Organization [facility] Address [address] [place] [address] Phone Care Team Providers Care Security Operations Center Analyst Name Role Phone Quang Locke Unavailable [phone] Keith Craft MD Primary Care Provider [phone] Bri Rollins RN Unavailable Unavailable Silvio Schulte MD Unavailable [phone] Bri Rollins RN Unavailable Unavailable Werner Swift MD Unavailable Liz Capellan DO Primary Care Provider [phone] Reason for Visit * Reason Comments Medication Refill Encounter Details Date Type Department Care Team (Late st Contact Info) Description 09/12/2020 Refill [facility] #2 [place] [address] Keith Craft MD #1 [place] [address] Medication Refill Social History Tobacco Use Types [...] encounter Miscellaneous Notes * Telephone Encounter - Keerthi Kline RN - 09/12/2020 10:40 AM CDT Medication failed the protocol, provider to review and approve the medication order if appropriate. Requested Prescriptions Pending Prescriptions Disp Refills ergocalciferol (VITAMIN D) 25663 UNIT Capsule [Pharmacy Med Name: VITAMIN D2 1.25MG(50,000 UNIT)] 12 Capsule 2 Sig: TAKE 1 CAPSULE BY MOUTH ONE TIME PER WEEK healthfinch Off-Protocol Failed - 09/12/2020 12:14 AM Failed - Medication not assigned to a protocol, review manually. Passed - Valid encounter within last 12 months Past Office Visits Recent Outpatient Visits 3 months ago Mixed hyperlipidemia [facility] Keith Lemus MD 4 months ago Pneumonia of right upper lobe due to infectious organism [facility] Keith Lemus MD 7 months ago Acute non-recurrent maxillary sinusitis [facility] Keith Lemus MD 10 months ago Chronic prescription opiate use [facility] eKith Lemus MD 1 year ago Coronary artery disease involving [place] coronary artery of [place] heart without angina pectoris [facility] Keith Lemus MD Upcoming Appointments Future Appointments In 3 weeks Keith Craft MD [facility] Maximiliano Tesf[facility] FICTION AND NONFICTION AUTHOR - Recent and Past Visits Recent Visits Date Type Provider Dept 06/07/20 Office Visit Keith [facility] MD [facility] 04/25/20 Office Visit Keith Craft MD [facility] 02/02/20 Office Visit Keith Craft MD [facility] 11/02/19 Office Visit Keith Craft MD [facility] 07/27/19 Office Visit Keith Craft MD [facility] 06/10/19 Office Visit Cira Brie PalmaNICOLE [facility] Showing recent visits within past 460 days with a meds authorizing provider and meeting all other requirements Future Appointments Date Type Provider Dept 10/04/20 Appointment Keith Craft MD [facility] Showing future appointments within next 90 days with a meds authorizing provider and meeting all other requirements documented in this encounter Plan of Treatment Upcoming Encounters Date Type Department Care Team (Late st Contact Info) Description 07/13/2024 1:30 PM PESTICIDE CHEMIST [facility] - [place] [address]2 [place] [address] Liz Capellan, DO [address] [address] 07/20/2024 2:15 PM PESTICIDE CHEMIST [facility] [place] #2 [place] [address] Ana Vivar, RADIO MECHANIC HELPER, CORPORATE AFFAIRS MANAGER [address] [address] Yasmin Restrepo MD #[address] [address] 07/31/2024 1:00 PM PESTICIDE CHEMIST [facility] [address] [place] [address] Werner Swift MD #2 [place] [address] Discharge Disposition: Discharged to home or Selfcare 08/03/2024 1:15 PM CDT [facility] #2 [place] [address] Werner Swift MD #2 [place] [address] 09/02/2024 2:00 PM CDT [facility]ment [facility] 1 [place] [address] Werner Swift MD #2 [place] [address] Discharge Disposition: Discharged to home or Selfcare 10/09/2024 2:30 PM CDT Office Visit [facility] - Family Medicine - [place] #2 [place] [address] Liz Capellan, DO [address] [address] documented as of this encounter Visit Diagnoses Not on filedocumented in this encounter Additional Health Concerns Infection Onset Date Last Indicated Resolved Time COVID - 19 01/25/2021 01/25/2021 01/31/2021 8:10 AM CDT Respiratory Rule Out - RPA 01/30/2021 01/30/2021 0 02/01/2021 12:45 AM CDT COVID - 19 07/23/2021 07/23/2021 07/24/2021 6:31 AM PESTICIDE CHEMIST COVID - 19 10/19/2021 10/19/2021 10/20/2021 7:45 AM CDT Respiratory Rule Out - RPA 10/19/2021 10/19/2021 0 10/20/2021 2:10 PM CDT Stenotrophomonas maltophilia Comment:Must have a follow up respiratory sample to remove isolation flag. 10/20/2021 10/20/2021 COVID - 19 04/20/2022 04/20/2022 04/30/2022 12:1 8 AM PESTICIDE CHEMIST COVID - 19 07/18/2022 07/18/2022 07/28/2022 12:1 6 AM PESTICIDE CHEMIST COVID - 19 08/21/2022 08/21/2022 08/22/2022 8:31 AM CDT Respiratory Rule Out - RPA 08/21/2022 08/21/2022 0 08/22/2022 3:21 PM CDT COVID - 19 04/18/2023 04/18/2023 04/28/2023 12:1 6 AM PESTICIDE CHEMIST COVID - 19 07/13/2023 07/13/2023 07/23/2023 12:1 6 AM PESTICIDE CHEMIST Respiratory Rule Out - RPA 03/17/2024 03/17/2024 1 3:36 PM CDT COVID - 19 04/27/2024 04/27/2024 04/27/2024 2:19 PM PESTICIDE CHEMIST Assessment Noted Time PHQ-9 Depression Total Score: 2 06/07/19 21 2:34 PM PESTICIDE CHEMIST documented as of this encounter Care Teams Security Operations Center Analyst Relationship Specialty Start Date End Date Keith Craft MD PCP - General Family Medicine 01/14/19 12/26/23 Liz Capellan DO [address] [address] PCP - General Family Medicine 12/27/23 Quang Locke DO Gastroenterology 01/18/16 Bri Rollins RN [place] Truck Service Technician 03/07/21 05/22/23 [place] [address] [address] 05/25/21 Bri Rollins RN [place] Nurse Truck Service Technician 03/07/21 05/23/23 Werner Swift MD #2 [place] [address] Consulting Physician Pulmonary Disease 01/30/22 documented as of this encounter
--- OUTSIDE RECORDS SUMMARY | 2024-07-10 13:41 | XMS_ITS | Encounter Summary ---
Author Organization [facility] Address [address] [place] [address] Phone Care Team Providers Care Night Shift Supervisor Name Role Phone Quang Locke Unavailable [phone] Keith Craft MD Primary Care Provider [phone] Bri Rollins RN Unavailable Unavailable Silvio Schulte MD Unavailable [phone] Bri Rollins RN Unavailable Unavailable Werner Swift MD Unavailable Liz Capellan DO Primary Care Provider [phone] Reason for Visit * Reason Comments Medication Refill Encounter Details Date Type Department Care Team (Late st Contact Info) Description 03/08/2022 Refill [facility] #2 [place] [address] Keith Craft MD #1 [place] [address] Medication Refill Social History Tobacco Use Types [...] encounter Miscellaneous Notes * Telephone Encounter - Camila Jon RN - 03/08/2022 11:49 AM CDT Medication failed the protocol, provider to review and approve the medication order if appropriate. Requested Prescriptions Pending Prescriptions Disp Refills Movantik 25 MG Tablet [Pharmacy Med Name: MOVANTIK 25MG TABLET] 30 Tablet 3 Sig: TAKE ONE (1) TABLET BY MOUTH EVERY MORNING (BEFORE BREAKFAST). Not Delegated - Naloxone Protocol Failed - 03/08/2022 9:36 AM Failed - This refill cannot be delegated Passed - Visit with relevant provider in past 12 months or upcoming 90 days Recent Visits Date Type Provider Dept 03/02/22 Procedure Visit [facility] 03/02/22 Office Visit Keith Craft MD [facility] 11/03/21 Office Visit Keith Craft MD [facility] 10/19/21 Office Visit Keith Craft MD [facility] 10/05/21 Office Visit Keith Craft MD [facility] 09/08/21 Office Visit Brie Denis, PAC [facility] 08/14/21 Office Visit Keith Craft MD [facility] 07/31/21 Office Visit Keith Craft MD [facility] 05/25/21 Office Visit Marcin Anderson, SOURCING MANAGER, CLIENT SERVICES DIRECTOR [facility] 05/05/21 Office Visit Brie Denis PAC [facility] Showing recent visits within past 365 days and meeting all other requirements Future Appointments Date Type Provider Dept 06/04/22 Appointment Keith Craft MD [facility] Showing future appointments within next 90 days and meeting all other requirements documented in this encounter Plan of Treatment Upcoming Encounters Date Type Department Care Team (Late st Contact Info) Description 07/13/2024 1:30 PM LOCATOR Office [facility] - Family Medicine - [place] #2 [place] [address] Liz Capellan, DO [address] [address] 07/20/2024 2:15 PM LOCATOR Office Visit [facility] - Endocrinology - [place] #2 [place] [address] Ana Vivar, SOURCING MANAGER, CLIENT SERVICES DIRECTOR [address] [address] Yasmin Restrepo MD #[address] [phone] 07/31/2024 1:00 PM LOCATOR [facility] [address] [place] [address] Werner Swift MD #2 [place] [address] Discharge Disposition: Discharged to home or Selfcare 08/03/2024 1:15 PM CDT Office Visit [facility] Pulmonology & Sleep Medicine [facility] #2 [place] [address] Werner Swift MD #[address] [place] [address] 09/02/2024 2:00 PM CDT Appointment [facility] Respiratory Therapy 1 [place] [address] Werner Swift MD #2 [place] [address] Discharge Disposition: Discharged to home or Selfcare 10/09/2024 2:30 PM CDT [facility] Visit [facility] - [place] #2 [place] [address] Liz Capellan, DO [address] [address] documented as of this encounter Goals Goal [...] Zones/Action plan education. I will notify my Therapist Respiratory if my symptoms fall in the y [...] 19 04/20/2022 04/20/2022 04/30/2022 12:1 8 AM LOCATOR COVID - 19 07/18/2022 07/18/2022 07/28/2022 12:1 6 AM LOCATOR COVID - 19 08/21/2022 08/21/2022 08/22/2022 8:31 AM CDT Respiratory Rule Out - RPA 08/21/2022 08/21/2022 0 08/22/2022 3:21 PM CDT COVID - 19 04/18/2023 04/18/2023 04/28/2023 12:1 6 AM LOCATOR COVID - 19 07/13/2023 07/13/2023 07/23/2023 12:1 6 AM LOCATOR Respiratory Rule Out - RPA 03/17/2024 03/17/2024 1 3:36 PM CDT COVID - 19 04/27/2024 04/27/2024 04/27/2024 2:19 PM LOCATOR Assessment Noted Time PHQ-9 Depression Total Score: 1 03/07/20 21 10:29 AM CDT documented as of this encounter Care Teams Night Shift Supervisor Relationship Specialty Start Date End Date Keith Craft MD PCP - General Family Medicine 01/14/19 12/26/23 Liz Capellan DO [address] [facility] [place] [address] [place] [address] PCP - General Family Medicine 12/27/23 Quang Locke DO Gastroenterology 01/18/16 Bri Rollins, KATEY [place] Therapist Respiratory 03/07/21 05/22/23 [place] [address] [address] 05/25/21 Bri Rollins RN [place] Nurse Therapist Respiratory 03/07/21 05/23/23 Werner Swift MD #2 [place] [address] Consulting Physician Pulmonary Disease 01/30/22 documented as of this encounter
--- OUTSIDE RECORDS SUMMARY | 2024-07-10 13:41 | XMS_ITS | Encounter Summary ---
Author Organization [facility] Address [address] [place] [address] Phone Care Team Providers Care Resolution Analyst Name Role Phone Quang Locke Unavailable [phone] Keith Craft MD Primary Care Provider [phone] Bri Rollins RN Unavailable Unavailable Silvio Schulte MD Unavailable [phone] Bri Rollins RN Unavailable Unavailable Werner Swift MD Unavailable Liz Capellan DO Primary Care Provider [phone] Reason for Visit * Reason Comments Medication Refill Encounter Details Date Type Department Care Team (Late st Contact Info) Description 05/13/2023 Refill [facility] #2 [place] [address] Keith Craft MD [address]1 [place] [address] Medication Refill Social History Tobacco Use Types Packs/Day Years Used Date Smoking Tobacco: Former Cigarettes 2 50 1 - 03/16/2018 Smokeless Tobacco: Never Comments:Still uses nictoine patches and gum Alcohol Use Standard Drinks/Week Comments No 0 (1 standard drink = 0.6 oz pur e alcohol) PHQ-2 Answer Date Recorded Total Score - Questions 1-9 0 08/2021 Education Answer Date Recorded What is the [...] Telephone Encounter - Kelin Nance RN - 05/13/2023 9:49 AM ENGINE PILOT Medication failed the protocol, provider to review and approve the medication order if appropriate. Requested Prescriptions Pending Prescriptions Disp Refills SUMAtriptan (IMITREX) 100 MG Tablet [Pharmacy Med Name: SUMATRIPTAN SUCCINATE 100MG TABLET] 9 Tablet 3 Sig: DIRECTED BY PHYSICIAN MAY REPEAT DOSE IF HEADACHE RECURS Not Delegated - Serotonin Agonists (Oral and Nasal) Protocol Failed - 05/13/2023 9:45 AM Failed - This refill cannot be delegated; check utilization no more than 9 doses per month Passed - Visit with relevant provider in past 24 months or upcoming 90 days Recent Visits Date Type Provider Dept 05/02/23 Office Visit Keith Craft MD [facility] 04/12/23 Office Visit Keith Craft MD [facility] 12/10/22 Office Visit Keith Craft MD [facility] 09/10/22 Office Visit Keith Craft MD [facility] 07/18/22 Office Visit Kerri Kauffman, CUSHION MAKER HAND, SENIOR RELIABILITY ENGINEER [facility] 06/07/22 Office Visit Keith Craft MD [facility] 03/02/22 Procedure Visit [facility] 03/02/22 Office Visit Keith Craft MD [facility] 11/03/21 Office Visit Keith Craft MD [facility] 10/19/21 Office Visit Keith Craft MD [facility] Showing recent visits within past 730 days and meeting all other requirements Future Appointments No visits were found meeting these conditions. Showing future appointments within next 90 days and meeting all other requirements Passed - No documented Systolic BP > 200 within past 3 months Passed - Number of active Serotonergic medications less than 3 gabapentin (NEURONTIN) 800 MG Tablet [Pharmacy Med Name: GABAPENTIN 800MG TABLET] 90 Tablet 3 Sig: TAKE ONE (1) TABLET BY MOUTH THREE (3) TIMES DAILY. Not Delegated - Anticonvulsants Excluding Benzodiazepines Protocol Failed - 05/13/2023 9:45 AM Failed - This refill cannot be delegated Passed - Visit with relevant provider in past 12 months or upcoming 90 days Recent Visits Date Type Provider Dept 05/02/23 Office Visit Keith Craft MD [facility] 04/12/23 Office Visit Keith Craft MD [facility] 12/10/22 Office Visit Keith Craft MD [facility] 09/10/22 Office Visit Keith Craft MD [facility] 07/18/22 Office Visit Kerri Kauffman, REBECCA, JAKOB [facility] 06/07/22 Office Visit Keith [facility] MD [facility] Showing recent visits within past 365 days and meeting all other requirements Future Appointments No visits were found meeting these conditions. Showing future appointments within next 90 days and meeting all other requirements Trelegy Ellipta 100-62.5-25 MCG/ACT AEROSOL POWDER, BREATH ACTIVATED [Pharmacy Med Name: TRELEGY ELLIPTA 100MCG AERO POW BR ACT] 60 Each 2 Sig: TAKE ONE (1) PUFF BY INHALATION DAILY. Inhaled Combinations Protocol Passed - 05/13/2023 9:45 AM Passed - Visit with relevant provider in past 12 months or upcoming 90 days Recent Visits Date Type Provider Dept 05/02/23 Office Visit Keith Craft MD [facility] 04/12/23 Office Visit Keith Craft MD [facility] 12/10/22 Office Visit Keith Crfat MD [facility] 09/10/22 Office Visit [facility] 07/18/22 Office Visit Kerri Kauffman, CUSHION MAKER HAND, SENIOR RELIABILITY ENGINEER [facility] 06/07/22 Office Visit Keith Craft MD [facility] Showing recent visits within past 365 days and meeting all other requirements Future Appointments No visits were found meeting these conditions. Showing future appointments within next 90 days and meeting all other requirements Passed - Active short-acting beta agonist prescription NE PILOT documented in this encounter Plan of Treatment Upcoming Encounters Date Type Department Care Team (Late st Contact Info) Description 07/13/2024 1:30 PM ENGINE PILOT Office Visit [facility] - Family Medicine - [place] [address] [place] [address] Liz Capellan, DO [address] [address] 07/20/2024 2:15 PM ENGINE PILOT [facility] - [place] #2 [place] [address] Ana Vivar, CUSHION MAKER HAND, SENIOR RELIABILITY ENGINEER [address] [address] Yasmin Restrepo MD #[address] [address] 07/31/2024 1:00 PM ENGINE PILOT [facility] [address] [place] [address] Werner Swift MD [address] [place] [address] Discharge Disposition: Discharged to home or Selfcare 08/03/2024 1:15 PM CDT Office Visit [facility] - Pulmonology & Sleep Medicine - [place] [address] [place] [address] Werner Swift MD #2 [place] [address] 09/02/2024 2:00 PM CDT Appointment [facility] Respiratory Therapy 1 [place] [address] Werner Swift MD [address] [place] [address] Discharge Disposition: Discharged to home or Selfcare 10/09/2024 2:30 PM CDT Office Visit [facility] Family Medicine - [place] [address] [place] [address] Liz Capellan, DO [address] [address] documented as of this encounter Goals Goal [...] Zones/Action plan education. 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 if my symptoms fall in the y [...] 19 07/13/2023 07/13/2023 07/23/2023 12:1 6 AM ENGINE PILOT Respiratory Rule Out - RPA 03/17/2024 03/17/2024 1 3:36 PM CDT COVID - 19 04/27/2024 04/27/2024 04/27/2024 2:19 PM ENGINE PILOT Assessment Noted Time PHQ-9 Depression Total Score: 1 03/07/20 21 10:29 AM CDT documented as of this encounter Care Teams Resolution Analyst Relationship Specialty Start Date End Date Keith Craft MD PCP - General Family Medicine 01/14/19 12/26/23 Liz Capellan DO [address] [address] PCP - General Family Medicine 12/27/23 Quang Locke DO Gastroenterology 01/18/16 Bri Rollins RN [place] [employer] 03/07/21 05/22/23 [place] [id number] [address] 05/25/21 Bri Rollins RN [place] Nurse [employer] 03/07/21 05/23/23 Werner Swift MD #[address] [place] [address] Consulting Physician Pulmonary Disease 01/30/22 documented as of this encounter
--- OUTSIDE RECORDS SUMMARY | 2024-07-10 13:41 | XMS_ITS | Encounter Summary ---
Author Organization [facility] Address [address] [place] [address] Phone Care Team Providers Care Operating Room Assistant Name Role Phone Quang Locke DO Unavailable [phone] Keith Craft MD Primary Care Provider [phone] Silvio Schulte MD Unavailable [phone] Werner Swift MD Unavailable Liz Capellan DO Primary Care Provider [phone] Encounter Details Date Type Department Care Team (Late st Contact Info) Description 08/12/2023 Lab Requisition [facility] Laboratory Services 1 [place] [phone] Keith Craft MD [address] [place] [address] Urinary tract infection, site not specified Social History Tobacco Use Types Packs/Day Years Used Date Smoking Tobacco: Former Cigarettes 2 50 1 - 03/16/2018 Smokeless Tobacco: Never Comments:Still uses nictoine patches and gum Alcohol Use Standard Drinks/Week Comments No 0 (1 standard drink = 0.6 oz pur e alcohol) [facility] Utilities Answer Date Recorded In the past 12 months has e electric, gas, oil, or water company [...] often do you attend chur ch or tenriism services? Never 07/13/2023 Do you belong to any clubs o r organizations such as yazidi groups, unions, fraternal or athletic groups, or [...] Recorded Total Score - Questions 1-9 0 01/0 08/2021 [facility] - Occupational [...] place to sleep or slept in a nursing home (including now)? No 07/13/2023 Education Answer Date [...] on file documented as of this encounter Functional Status * Question Answer Date of Assessment Author Little interest or pleasure in doing things Not at all 08/15/2023 1:28 PM Amparo Metcalf MA Feeling down, depressed, or hopeless Not at all 08/15/2023 1:28 PM Heike Metcalf MA * Over the past 2 weeks, how often have you been bothered by any of the following problems? Question Answer Date of Assessment Author Patient Health Questionnaire-2 Score 0 08/15/2023 1:28 PM Chris Metcalf MA documented as of this encounter Plan of Treatment Upcoming Encounters Date Type Department Care Team (Late st Contact Info) Description 07/13/2024 1:30 PM HAND CEMENTER [facility] - [place] [address]2 [place] [address] Liz Capellan, DO 2 [facility] [address] [place] [address] 07/20/2024 2:15 PM HAND CEMENTER Office Visit [facility] - Endocrinology - [place] #2 [place] [address] Ana Vivar N, HYBRID POWERTRAIN DEVELOPMENT ENGINEER, DIRECTOR HEMATOLOGY 2 [facility] [address] [place] [address] Yasmin Restrepo MD #[address] [phone] 07/31/2024 1:00 PM HAND CEMENTER [facility] [address] [place] [address] Werner Swift MD #2 [place] [address] Discharge Disposition: Discharged to home or Selfcare 08/03/2024 1:15 PM CDT Office Visit [facility] - Pulmonology & Sleep Medicine - [place] #2 [place] [address] Werner Swift MD #2 [place] [address] 09/02/2024 2:00 PM CDT [facility] 1 [place] [address] Werner Swift MD [address] [place] [address] Discharge Disposition: Discharged to home or Selfcare 10/09/2024 2:30 PM CDT Office Visit [facility] - [facility] [place] #[address] [place] [address] Liz Capellan, DO 2 [facility] [place], [place]. [address] [place] [address] documented as of this encounter Goals Goal [...] Zones/Action plan education. I will notify my Culinary Director if my symptoms fall in the y ellow zone . I will consider receiving an influenza and pneumonia vaccination, if applicable. -I will call the office if I experience any symptoms listed above to discuss at home management options. documented as of this encounter Procedures Procedure Name Priority Date/Time Associated Diagnosis Comments URINALYSIS REFLEX IF INDICATED BY ABNORMAL RESULTS Routine 08/12/2023 1:05 PM CDT Urinary tract infection, site not specified CULTURE, URINE Routine 08/12/2023 1:05 PM CDT Urinary tract infection, site not specified documented in this encounter Results * CULTURE, URINE (08/12/2023 1:05 PM CDT) CULTURE RESULTS ESCHERICHIA COLI 08/14/2023 3:30 PM CDT [facility] Comment:PRESUMPTIVE IDENTIFI CATION Culture URINE SPECIMEN / Unknown No Phlebotomy Charged / Unknown 08/12/2023 1:05 PM CDT 08/12/2023 1:29 PM CDT Narrative Organism Antibiotic Method Susceptibility Escherichia coli Ampicillin [facility] IIB >=32 mcg/ml: Resistant Escherichia coli Ampicillin/sulbactam [facility] IIB >=32 mcg/ml: Resistant Escherichia coli Cefazolin [facility] II[facility] 8 mcg/ml: Susceptible Escherichia coli Cefepime [facility] II[facility] <=1 mcg/ml: Susceptible Escherichia coli Ceftriaxone [facility] <=1 mcg/ml: Susceptible Escherichia coli Gentamicin [facility] <=1 mcg/ml: Susceptible Escherichia coli Levofloxacin [facility] >=8 mcg/ml: Resistant Escherichia coli Meropenem [facility] II[facility] <=0.25 mcg/ml: Susceptible Escherichia coli Nitrofurantoin [facility] II[facility] <=16 mcg/ml: Susceptible Escherichia coli Piperacillin/Tazobactam [facility] II B <=4 mcg/ml: Susceptible Escherichia coli Tobramycin [facility] IIB <=1 mcg/ml: Susceptible Escherichia coli Trimeth/Sulfamethoxazole [facility] I IB >=320 mcg/ml: Resistant us Keith Craft MD MICROBIOLOGY - GENERAL ORDERABLE S Final Result [facility] [address] [facility] [place] [address], * (ABNORMAL) URINALYSIS REFLEX IF INDICATED BY ABNORMAL RESULTS (08/12/2023 1:05 PM CDT) SPECIFIC GRAVITY 1.015 1.003 - 1.030 08/12/2023 1:44 PM CDT [facility] URINE PH 6.0 5.0 - 9.0 08/12/2023 1:44 PM CDT [facility] WBC ESTERASE 500 /uL(A) Negative 08/12/2023 1:44 PM CDT [facility] NITRITE Negative Negative 08/12/2023 1:44 PM CDT [facility] PROTEIN, RANDOM URINE 100 mg/dL(A) Negative 08/12/2023 1:44 PM CDT [facility] URINE GLUCOSE, QUAL 1000 mg/dL(A) Negative 08/12/2023 1:44 PM CDT [facility] URINE KETONES Negative Negative 08/12/2023 1:44 PM CDT [facility] UROBILINOGEN Normal Normal mg/dL 08/12/2023 1:44 PM CDT [facility] URINE BLOOD 50 /uL(A) Negative bharathi/ul 08/12/2023 1:44 PM CDT [facility] URINALYSIS COLOR Yellow 08/12/19 1:44 PM CDT [facility] URINALYSIS CLARITY Very Cloudy 08/12/2023 1:44 PM CDT [facility] WBC (Urine) Packed(A) Negative, 0-5 /hpf 08/12/2023 1:44 PM CDT [facility] URINE RBC'S 0-2 Negative, 0-2 /hpf 08/12/2023 1:44 PM CDT [facility] EPITHELIAL CELLS Negative /lpf 08/12/19 24 1:44 PM CDT [facility] BACTERIA, URINE Many(A) Negative /hpf 08/12/2023 1:44 PM CDT [facility] Urine Non-Phlebotomy Collection / Unknown 08/12/2023 1:05 PM CDT 08/12/2023 1:29 PM CDT Keith Craft MD URINE ORDERABLES Final Result [facility] [address] [place] [address] documented in this encounter Visit Diagnoses Diagnosis Urinary tract infection, site not specified documented in this encounter Additional Health Concerns Infection Onset Date Last Indicated Resolved Time Stenotrophomonas maltophilia Comment:Must have a follow up respiratory sample to remove isolation flag. 10/20/2021 10/20/2021 Respiratory Rule Out - RPA 03/17/2024 03/17/2024 1 3:36 PM CDT COVID - 19 04/27/2024 04/27/2024 04/27/2024 2:19 PM HAND CEMENTER Assessment Noted Time PHQ-9 Depression Total Score: 1 03/07/20 21 10:29 AM CDT documented as of this encounter Care Teams Operating Room Assistant Relationship Specialty Start Date End Date Keith Craft MD PCP - General Family Medicine 01/14/19 12/26/23 Liz Capellan DO 2 [facility] [place] [address] [address] PCP - General Family Medicine 12/27/23 Quang Locke DO Gastroenterology 01/18/16 [place] [address] [address] 05/25/21 Werner Swift MD #[address] [place] [address] Consulting Physician Pulmonary Disease 01/30/22 documented as of this encounter
--- OUTSIDE RECORDS SUMMARY | 2024-07-10 13:41 | XMS_ITS | Encounter Summary ---
Author Organization [facility] Address [address] [place] [address] Phone Care Team Providers Care Hiv Nurse Name Role Phone Quang Locke Unavailable [phone] Keith Craft MD Primary Care Provider [phone] Bri Rollins RN Unavailable Unavailable Silvio Schulte MD Unavailable [phone] Bri Rollins RN Unavailable Unavailable Werner Swift MD Unavailable Liz Capellan DO Primary Care Provider Reason for Visit * Reason Comments Medication Refill Encounter Details Date Type Department Care Team (Late st Contact Info) Description 12/25/2020 Refill [facility] #2 [place] [address] Keith Craft MD [address] [place] [address] Medication Refill Social History Tobacco Use Types [...] have Coronavirus / COVID-19? No / Unsure 11/30/2020 1:09 PM CDT documented as of this encounter Miscellaneous Notes * Telephone Encounter - Gloria Cornejo RN - 12/26/2020 12:20 PM CDT Medication failed the protocol, provider to review and approve the medication order if appropriate. Requested Prescriptions Pending Prescriptions Disp Refills DULoxetine (CYMBALTA) [address] Particles [Pharmacy Med Name: DULOXETINE HCL DR 60 MG CAP] 90 Capsule 3 Sig: TAKE 1 CAPSULE BY MOUTH EVERY DAY SNRI (6 Month Refill Only) Protocol Failed - 12/25/2020 6:57 AM Failed - Has an encounter in the past 6 months with a depression or anxiety visit diagnosis Passed - Visit with relevant provider in past 6 months or upcoming 90 days Recent Visits Date Type Provider Dept 10/12/20 Office Visit Keith Craft MD [facility] 10/04/20 Office Visit Keith Craft MD [facility] Showing recent visits within past 182 days and meeting all other requirements Future Appointments Date Type Provider Dept 01/04/21 Appointment Keith Craft MD [facility] Showing future appointments within next 90 days and meeting all other requirements Passed - Patient has established therapy with Serotonin-Norepinephrine Reuptake Inhibitors for at least 6 months fluticasone (FLONASE) 50 MCG/ACT Suspension [Pharmacy Med Name: FLUTICASONE PROP 50 MCG SPRAY] 1 Bottle 1 Sig: USE TWO SPRAYS IN EACH NOSTRIL ONCE A DAY Nasal Steroids Protocol Passed - 12/25/2020 6:57 AM Passed - Visit with relevant provider in past 12 months or upcoming 90 days Recent Visits Date Type Provider Dept 10/12/20 Office Visit Keith Craft MD [facility] 10/04/20 Office Visit Keith Craft MD [facility] 06/07/20 Office Visit Keith Craft MD [facility] 04/25/20 Office Visit Keith Craft MD [facility] 02/02/20 Office Visit Keith Craft MD [facility] [...] st Contact Info) Description 07/13/2024 1:30 PM MOSAIC TECHNICIAN Office Visit [facility] - Family Medicine - [place] #[address] [place] [address] Liz Capellan L, DO [address] [address] 07/20/2024 2:15 PM MOSAIC TECHNICIAN Office Visit [facility] - Endocrinology - [place] #2 [place] [address] Ana Vivar, BUS INFO CONSULTANT, C D STILL OPERATOR [address] [address] Yasmin Restrepo MD #[address] [address] 07/31/2024 1:00 PM MOSAIC TECHNICIAN [facility] [place] [address] Werner Swift MD #2 [place] [address] Discharge Disposition: Discharged to home or Selfcare 08/03/2024 1:15 PM CDT [facility] #2 [place] [address] Werner Swift MD #2 [place] [address] 09/02/2024 2:00 PM CDT Appointment [facility] Respiratory Therapy 1 [place] [address] Werner Swift MD #2 [place] [address] Discharge Disposition: Discharged to home or Selfcare 10/09/2024 2:30 PM CDT Office Visit [facility] Family Medicine - [place] #[address] [place] [address] Liz Capellan, DO [address] [address] documented as of this encounter Visit Diagnoses Diagnosis Anxiety and depression Dysthymic disorder documented in this encounter Additional Health Concerns Infection Onset Date Last Indicated Resolved Time COVID - 19 01/25/2021 01/25/2021 01/31/2021 8:10 AM CDT Respiratory Rule Out - RPA 01/30/2021 01/30/2021 0 02/01/2021 12:45 AM CDT COVID - 19 07/23/2021 07/23/2021 07/24/2021 6:31 AM MOSAIC TECHNICIAN COVID - 19 10/19/2021 10/19/2021 10/20/2021 7:45 AM CDT Respiratory Rule Out - RPA 10/19/2021 10/19/2021 0 10/20/2021 2:10 PM CDT Stenotrophomonas maltophilia Comment:Must have a follow up respiratory sample to remove isolation flag. 10/20/2021 10/20/2021 COVID - 19 04/20/2022 04/20/2022 04/30/2022 12:1 8 AM MOSAIC TECHNICIAN COVID - 19 07/18/2022 07/18/2022 07/28/2022 12:1 6 AM MOSAIC TECHNICIAN COVID - 19 08/21/2022 08/21/2022 08/22/2022 8:31 AM CDT Respiratory Rule Out - RPA 08/21/2022 08/21/2022 0 08/22/2022 3:21 PM CDT COVID - 19 04/18/2023 04/18/2023 04/28/2023 12:1 6 AM MOSAIC TECHNICIAN COVID - 19 07/13/2023 07/13/2023 07/23/2023 12:1 6 AM MOSAIC TECHNICIAN Respiratory Rule Out - RPA 03/17/2024 03/17/2024 1 3:36 PM CDT COVID - 19 04/27/2024 04/27/2024 04/27/2024 2:19 PM MOSAIC TECHNICIAN Assessment Noted Time PHQ-9 Depression Total Score: 2 06/07/19 21 2:34 PM MOSAIC TECHNICIAN documented as of this encounter Care Teams Hiv Nurse Relationship Specialty Start Date End Date Keith Craft MD PCP - General Family Medicine 01/14/19 12/26/23 Liz Capellan DO 2 [place] [address] PCP - General Family Medicine 12/27/23 Quang Locke DO Gastroenterology 01/18/16 Bri Rollins, RN [place] [employer] 03/07/21 05/22/23 [place] [address] [address] 05/25/21 Bri Rollins RN [place] Nurse [employer] 03/07/21 05/23/23 Werner Swift MD #2 [place] [address] Consulting Physician Pulmonary Disease 01/30/22 documented as of this encounter
--- OUTSIDE RECORDS SUMMARY | 2024-07-10 13:41 | XMS_ITS | Encounter Summary ---
Author Organization [facility] Address [address] [place] [address] Phone Care Team Providers Care Screen Machine Operator Name Role Phone Quang Locke DO Unavailable [phone] Keith Craft MD Primary Care Provider [phone] Silvio Schulte MD Unavailable [phone] Werner Swift MD Unavailable Liz Capellan DO Primary Care Provider [phone] Reason for Visit * Reason Comments Medication Refill Encounter Details Date Type Department Care Team (Late st Contact Info) Description 08/12/2023 [facility]ill [facility] #2 [place] [id number] Keith Craft MD #1 [place] [address] Medication Refill Social History Tobacco Use Types Packs/Day Years Used Date Smoking Tobacco: Former Cigarettes 2 50 1 - 03/16/2018 Smokeless Tobacco: Never Comments:Still uses nictoine patches and gum Alcohol Use Standard Drinks/Week Comments No 0 (1 standard drink = 0.6 oz pur e alcohol) [facility] Utilities Answer Date Recorded In the [...] often do you attend chur ch or episcopalian services? Never 07/13/2023 Do you belong to any clubs o r organizations such as catholic groups, unions, fraternal or athletic groups, or [...] Score - Questions 1-9 0 /0 08/2021 [facility] [place] of Occupat ional Health - Occupational Stress [...] place to sleep or slept in a prison (including now)? No 07/13/2023 Education Answer Date [...] Metcalf MA documented as of this encounter Miscellaneous Notes * Telephone Encounter - Gloria Cornejo RN - 08/12/2023 12:50 PM CDT Images from the original note were not included. oxyCODONE-Acetaminophen Dispensed Written Strength Quantity Refills Days Supply Provider Pharmacy OXYCODONE HCL-ACETAMINOPHEN 07/06/2023 06/18/2023 325 MG-10 MG 45 0 15 , [facility] OXYCODONE HCL-ACETAMINOPHEN 06/19/2023 06/18/2023 325 MG-10 MG 25 0 8 , [facility] OXYCODONE HCL-ACETAMINOPHEN 06/13/2023 06/13/2023 325 MG-5 MG 45 0 15 , [facility]... Pt has been taking Oxycodone. documented in this encounter Plan of Treatment Upcoming Encounters Date Type Department Care Team (Late st Contact Info) Description 07/13/2024 1:30 PM HOSPITAL TECHNICIAN Office Visit [facility] - Family Medicine - [place] [address]2 [place] [address] Liz Capellan, DO [address] [address] 07/20/2024 2:15 PM HOSPITAL TECHNICIAN Office Visit [facility] - Endocrinology - [place] [address]2 [place] [address] Ana Vivar, HARDSCAPE FOREMAN, GOLF BALL INSPECTOR 2 [facility] [address] [place] [address] Yasmin Restrepo MD #[address] [address] 07/31/2024 1:00 PM HOSPITAL TECHNICIAN [facility] [address] [place] [address] Werner Swift MD #2 [place] [address] Discharge Disposition: Discharged to home or Selfcare 08/03/2024 1:15 PM CDT [facility] #2 [place] [address] Werner Swift MD #2 [place] [address] 09/02/2024 2:00 PM CDT [facility] 1 [place] [address] Werner Swift MD #2 [place] [address] Discharge Disposition: Discharged to home or Selfcare 10/09/2024 2:30 PM CDT Office Visit [facility] - Family Medicine [facility] #2 [place] [address] Liz Capellan, DO [address] [address] documented as of this encounter Goals Goal [...] Zones/Action plan education. I will notify my Disintegrator Feeder if my symptoms fall in the y [...] - 19 04/27/2024 04/27/2024 04/27/2024 2:19 PM HOSPITAL TECHNICIAN Assessment Noted Time PHQ-9 Depression Total Score: 1 03/07/20 21 10:29 AM CDT documented as of this encounter Care Teams Screen Machine Operator Relationship Specialty Start Date End Date Keith Craft MD PCP - General Family Medicine 01/14/19 12/26/23 Liz Capellan DO [address] [address] PCP - General Family Medicine 12/27/23 Quang Locke DO Gastroenterology 01/18/16 [place] [address] [address] 05/25/21 Werner Swift MD #2 [place] [address] Consulting Physician Pulmonary Disease 01/30/22 documented as of this encounter
--- OUTSIDE RECORDS SUMMARY | 2024-07-10 13:41 | XMS_ITS | Encounter Summary ---
Author Organization [facility] Address [address] [place] [address] Phone Care Team Providers Care City Routeman Name Role Phone Quang Locke Unavailable [phone] Keith Craft MD Primary Care Provider [phone] Bri Rollins RN Unavailable Unavailable Silvio Schulte MD Unavailable [phone] Bri Rollins RN Unavailable Unavailable Werner Swift MD Unavailable Liz Capellan DO Primary Care Provider [phone] Reason for Visit * Reason Comments Medication Refill Encounter Details Date Type Department Care Team (Late st Contact Info) Description 01/04/2021 [facility]ill [facility] #2 [place] [address] Keith Craft MD #1 [place] [address] Medication Refill Social History Tobacco Use Types [...] Miscellaneous Notes * Telephone Encounter - Camila Mehta RN - 01/04/2021 11:15 AM CDT [place] last fill date 12/05/20 Medication failed the protocol, provider to review and approve the medication order if appropriate. Requested Prescriptions Pending Prescriptions Disp Refills diazePAM (VALIUM) 10 MG Tablet [Pharmacy Med Name: DIAZEPAM 10 MG TABLET] 30 Tablet Sig: TAKE 1 TABLET BY MOUTH EVERY DAY There is no refill protocol information for this order documented in this encounter Plan of Treatment Upcoming Encounters Date Type Department Care Team (Late st Contact Info) Description 07/13/2024 1:30 PM DIRECTOR OF INVESTIGATIONS Office Visit [facility] - Family Medicine - [place] #2 [place] [address] Liz Capellan, DO [address] [address] 07/20/2024 2:15 PM DIRECTOR OF INVESTIGATIONS Office Visit [facility] - Endocrinology - [place] #2 [place] [address] Ana Vivar, CAR SALES REPRESENTATIVE, BACK HAND [address] [address] Yasmin Restrepo MD #[address] [address] 07/31/2024 1:00 PM DIRECTOR OF INVESTIGATIONS [facility] [address] [place] [address] Werner Swift MD #2 [place] [address] Discharge Disposition: Discharged to home or Selfcare 08/03/2024 1:15 PM CDT Office Visit [facility] - Pulmonology & Sleep Medicine [facility] #2 [place] [address] Werner Swift MD #2 [place] [address] 09/02/2024 2:00 PM CDT [facility] 1 [place] [address] Werner Swift MD #2 [place] [address] Discharge Disposition: Discharged to home or Selfcare 10/09/2024 2:30 PM CDT Office Visit [facility] - Family Medicine - [place] [address]2 [place] [address] Liz Capellan, DO [address] [address] documented as of this encounter Visit Diagnoses Diagnosis Anxiety and depression Dysthymic disorder documented in this encounter Additional Health Concerns Infection Onset Date Last Indicated Resolved Time COVID - 19 01/25/2021 01/25/2021 01/31/2021 8:10 AM CDT Respiratory Rule Out - RPA 01/30/2021 01/30/2021 0 02/01/2021 12:45 AM CDT COVID - 19 07/23/2021 07/23/2021 07/24/2021 6:31 AM DIRECTOR OF INVESTIGATIONS COVID - 19 10/19/2021 10/19/2021 10/20/2021 7:45 AM CDT Respiratory Rule Out - RPA 10/19/2021 10/19/2021 0 10/20/2021 2:10 PM CDT Stenotrophomonas maltophilia Comment:Must have a follow up respiratory sample to remove isolation flag. 10/20/2021 10/20/2021 COVID - 19 04/20/2022 04/20/2022 04/30/2022 12:1 8 AM DIRECTOR OF INVESTIGATIONS COVID - 19 07/18/2022 07/18/2022 07/28/2022 12:1 6 AM DIRECTOR OF INVESTIGATIONS COVID - 19 08/21/2022 08/21/2022 08/22/2022 8:31 AM CDT Respiratory Rule Out - RPA 08/21/2022 08/21/2022 0 08/22/2022 3:21 PM CDT COVID - 19 04/18/2023 04/18/2023 04/28/2023 12:1 6 AM DIRECTOR OF INVESTIGATIONS COVID - 19 07/13/2023 07/13/2023 07/23/2023 12:1 6 AM DIRECTOR OF INVESTIGATIONS Respiratory Rule Out - RPA 03/17/2024 03/17/2024 1 3:36 PM CDT COVID - 19 04/27/2024 04/27/2024 04/27/2024 2:19 PM DIRECTOR OF INVESTIGATIONS Assessment Noted Time PHQ-9 Depression Total Score: 2 06/07/19 21 2:34 PM DIRECTOR OF INVESTIGATIONS documented as of this encounter Care Teams City Routeman Relationship Specialty Start Date End Date Keith Craft MD PCP - General Family Medicine 01/14/19 12/26/23 Liz Capellan DO [address] [address] PCP - General Family Medicine 12/27/23 Quang Locke DO Gastroenterology 01/18/16 Bri Rollins, RN [place] Documentation Clerk 03/07/21 05/22/23 [place] [address] [address] 05/25/21 Bri Rollins RN [place] Nurse Documentation Clerk 03/07/21 05/23/23 Werner Swift MD #2 [place] [address] Consulting Physician Pulmonary Disease 01/30/22 documented as of this encounter
--- OUTSIDE RECORDS SUMMARY | 2024-07-10 13:41 | XMS_ITS | Encounter Summary ---
Author Organization [facility] Address [address] [place] [address] Phone Care Team Providers Care Installer Molding And Trim Name Role Phone Quang Locke Unavailable [phone] Keith Craft MD Primary Care Provider [phone] Bri Rollins RN Unavailable Unavailable Silvio Schulte MD Unavailable [phone] Bri Rollins RN Unavailable Unavailable Werner Swift MD Unavailable Liz Capellan DO Primary Care Provider [phone] Reason for Visit * Reason Comments Medication Refill Encounter Details Date Type Department Care Team (Late st Contact Info) Description [facility] [address] [place] [address] Keith Craft MD [address]1 [place] [address] Medication Refill Social History Tobacco Use Types [...] Telephone Encounter - Gloria Cornejo RN - 09/29/2020 11:29 AM CDT Medication failed the protocol, provider to review and approve the medication order if appropriate. Requested Prescriptions Pending Prescriptions Disp Refills amitriptyline (ELAVIL) 25 MG Tablet [Pharmacy Med Name: AMITRIPTYLINE HCL 25 MG TAB] 90 Tablet 2 Sig: TAKE 1 TABLET BY MOUTH EVERY DAY AT NIGHT [facility] Not Delegated - Psychiatry: Antidepressants - Heterocyclics (TCAs) Failed - 09/28/2020 1:02 PM Failed - This refill cannot be delegated Passed - Valid encounter within last 12 months Past Office Visits Recent Outpatient Visits 3 months ago Mixed hyperlipidemia [facility] Keith Lemus MD 5 months ago Pneumonia of right upper lobe due to infectious organism [facility] Keith Lemus MD 8 months ago Acute non-recurrent maxillary sinusitis [facility] Keith Lemus MD 11 months ago Chronic prescription opiate use [facility] Keith Lemus MD 1 year ago 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 [facility] Keith Lemus MD Upcoming Appointments Future Appointments In 5 days Keith Craft MD [facility] Tesf[facility] - Recent and Past Visits Recent Visits Date Type Provider Dept 06/07/20 Office Visit Keith Craft MD [facility] 04/25/20 Office Visit Craft, [facility] 02/02/20 Office Visit Keith Craft MD [facility] 11/02/19 Office Visit Keith Craft MD [facility] 07/27/19 Office Visit Keith Craft MD [facility] Showing recent visits within past 460 days with a meds authorizing provider and meeting all other requirements Future Appointments Date Type Provider Dept 10/04/20 Appointment Keith Craft MD [facility] Showing future appointments within next 90 days with a meds authorizing provider and meeting all other requirements Passed - Last BP in normal range BP Readings from Last 1 Encounters: 06/07/20 102/58 fluticasone (FLONASE) 50 MCG/ACT Suspension [Pharmacy Med Name: FLUTICASONE PROP 50 MCG SPRAY] 1 Bottle 2 Sig: USE TWO SPRAYS IN EACH NOSTRIL ONCE A DAY [facility] Ear, Nose, and Throat: Nasal Preparations - Corticosteroids Passed - 09/28/2020 1:02 PM Passed - Valid encounter within last 12 months Past Office Visits Recent Outpatient Visits 3 months ago Mixed hyperlipidemia [facility] Keith Lemus MD 5 months ago Pneumonia of right upper lobe due to infectious organism [facility] Keith Lemus MD 8 months ago Acute non-recurrent maxillary sinusitis [facility] Keith Lemus MD 11 months ago Chronic prescription opiate use [facility] Keith Lemus MD 1 year ago 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 [facility] Keith Lemus MD Upcoming Appointments Future Appointments In 5 days Keith Craft MD [facility] Maximiliano Tesfaye [facility] PHYSICAL CHEMIST - Recent and Past Visits Recent Visits Date Type Provider Dept 06/07/20 Office Visit Keith Craft MD [facility] 04/25/20 Office Visit Keith Craft MD [facility] 02/02/20 Office Visit Keith Craft MD [facility] 11/02/19 Office Visit Keith Craft MD [facility] 07/27/19 Office Visit Keith Craft MD [facility] Showing recent visits within past 460 days with a meds authorizing provider and meeting all other requirements Future Appointments Date Type Provider Dept 10/04/20 Appointment Keith Craft MD [facility] Showing future appointments within next 90 days with a meds authorizing provider and meeting all other requirements documented in this encounter Plan of Treatment Upcoming Encounters Date Type Department Care Team (Late st Contact Info) Description 07/13/2024 1:30 PM REMELT SUGAR BOILER Office Visit [facility] Medical [facility] - Family Medicine - [place] [address]2 [place] [address] Liz Capellan L, DO 2 [facility] [address] [place] [address] 07/20/2024 2:15 PM REMELT SUGAR BOILER Office Visit [facility] - Endocrinology - [place] #2 [place] [address] Ana Vivar APRN, MECHANICAL ENGINEERING TECHNICIAN [address] [address] Yasmin Restrepo MD #[address] [address] 07/31/2024 1:00 PM REMELT SUGAR BOILER [facility] [address] [place] [address] Werner Swift MD #2 [place] [address] Discharge Disposition: Discharged to home or Selfcare 08/03/2024 1:15 PM CDT Office Visit [facility] - Pulmonology & Sleep Medicine [facility] #2 [place] [address] Werner Swift MD #2 [place] [address] 09/02/2024 2:00 PM CDT [facility] 1 [place] [address] Werner Swift MD #2 [place] [address] Discharge Disposition: Discharged to home or Selfcare 10/09/2024 2:30 PM CDT Office Visit [facility] - [place] #2 [place] [address] Liz Capellan, DO [address] [address] documented as of this encounter Visit Diagnoses Not on filedocumented in this encounter Additional Health Concerns Infection Onset Date Last Indicated Resolved Time COVID - 19 01/25/2021 01/25/2021 01/31/2021 8:10 AM CDT Respiratory Rule Out - RPA 01/30/2021 01/30/2021 0 02/01/2021 12:45 AM CDT COVID - 19 07/23/2021 07/23/2021 07/24/2021 6:31 AM REMELT SUGAR BOILER COVID - 19 10/19/2021 10/19/2021 10/20/2021 7:45 AM CDT Respiratory Rule Out - RPA 10/19/2021 10/19/2021 0 10/20/2021 2:10 PM CDT Stenotrophomonas maltophilia Comment:Must have a follow up respiratory sample to remove isolation flag. 10/20/2021 10/20/2021 COVID - 19 04/20/2022 04/20/202204/30/2022 12:1 8 AM REMELT SUGAR BOILER COVID - 19 07/18/2022 07/18/2022 07/28/2022 12:1 6 AM REMELT SUGAR BOILER COVID - 19 08/21/2022 08/21/2022 08/22/2022 8:31 AM CDT Respiratory Rule Out - RPA 08/21/2022 08/21/2022 0 08/22/2022 3:21 PM CDT COVID - 19 04/18/2023 04/18/2023 04/28/2023 12:1 6 AM REMELT SUGAR BOILER COVID - 19 07/13/2023 07/13/2023 07/23/2023 12:1 6 AM REMELT SUGAR BOILER Respiratory Rule Out - RPA 03/17/2024 03/17/2024 1 3:36 PM CDT COVID - 19 04/27/2024 04/27/2024 04/27/2024 2:19 PM REMELT SUGAR BOILER Assessment Noted Time PHQ-9 Depression Total Score: 2 06/07/19 2:34 PM REMELT SUGAR BOILER documented as of this encounter Care Teams Installer Molding And Trim Relationship Specialty Start Date End Date Keith Craft MD PCP - General Family Medicine 01/14/19 12/26/23 Liz Capellan DO [address] [address] PCP - General Family Medicine 12/27/23 Quang Locke DO Gastroenterology 01/18/16 Bri Rollins RN [place] Cosmetic Sales Assistant 03/07/21 05/22/23 [place] [address] [address] 05/25/21 Bri Rollins RN [place] Nurse Cosmetic Sales Assistant 03/07/21 05/23/23 Werenr Swift MD #2 [place] [address] Consulting Physician Pulmonary Disease 01/30/22 documented as of this encounter
--- OUTSIDE RECORDS SUMMARY | 2024-07-10 13:41 | XMS_ITS | Encounter Summary ---
Author Organization [facility] Address [address] [place] [address] Phone Care Team Providers Care Construction Code Administrator Name Role Phone Quang Locke DO Unavailable [phone] Keith Craft MD Primary Care Provider [phone] Silvio Schulte MD Unavailable [phone] Werner Swift MD Unavailable Liz Capellan DO Primary Care Provider [phone] Reason for Visit * Reason Comments Medication Refill Encounter Details Date Type Department Care Team (Late st Contact Info) Description 07/10/2023 Refill [facility] #2 [place] [address] Keith Craft MD #1 [place] [address] Medication Refill Social History Tobacco Use Types Packs/Day Years Used Date Smoking Tobacco: Former Cigarettes 2 50 1 - 03/16/2018 Smokeless Tobacco: Never Comments:Still uses nictoine patches and gum Alcohol Use Standard Drinks/Week Comments No 0 (1 standard drink = 0.6 oz pur e alcohol) [facility] Utilities Answer Date Recorded In [...] any clubs o r organizations such as denominational groups, unions, fraternal or athletic groups, or [...] Score - Questions 1-9 0 /0 08/2021 [facility] of Occupat ional Health - Occupational Stress [...] place to sleep or slept in a alf (including now)? No 07/13/2023 Education Answer Date [...] as of this encounter Functional Status * Audit-C Score Answer Date of Assessment Author 0 07/13/2023 5:05 PM Mariel Strickland RN * Within the last year, have you been humiliated or emotionally abused in other ways by your partner or ex-partner? Answer Date of Assessment Author No 07/13/2023 5:05 PM Mariel Strickland RN * Within the last year, have you been afraid of your partner or ex-partner? Answer Date of Assessment Author No 07/13/2023 5:05 PM Mariel Strcikland RN * Within the last year, have you been raped or forced to have any kind of sexual activity by your partner or ex-partner? Answer Date of Assessment Author No 07/13/2023 5:05 PM Mariel Strickland RN * Within the last year, have you been kicked, hit, slapped, or otherwise physically hurt by your partner or ex-partner? Answer Date of Assessment Author No 07/13/2023 5:05 PM Mariel Strickland RN * Question Answer Date of Assessment Author Q1: How often do you have a drink containing alcohol? Never 07/13/2023 5:05 PM Yonathan Strickland RN Q2: How many drinks containing alcohol do you have on a typical day when you are drinking? Patient does not drink 07/13/2023 5:05 PM Yonathan Strickland RN Q3: How often do you have six or more drinks on one occasion? Never 07/13/2023 5:05 PM Yonathan Strickland RN documented as of this encounter Miscellaneous Notes * Telephone Encounter - Kelin Nance RN - 07/10/2023 2:40 PM CUSTOMS BROKERAGE AGENT Corrected - PDMP 05-04-23 OMS BROKERAGE AGENT * Telephone Encounter - Kelin Nance RN - 07/10/2023 2:39 PM CUSTOMS BROKERAGE AGENT PDMP 05-04-24, 30 days Will need UDS at [facility] 08-15-23 (it's in the appt notes) Medication failed the protocol, provider to review and approve the medication order if appropriate. Requested Prescriptions Pending Prescriptions Disp Refills diazePAM (VALIUM) 5 MG Tablet [Pharmacy Med Name: DIAZEPAM 5MG TABLET] 30 Tablet 0 Sig: TAKE 1 TABLET BY MOUTH DAILY NEEDED FOR ANXIETY. 12.9 Not Delegated - Benzodiazepines Protocol Failed - 07/10/2023 9:12 AM Failed - This refill cannot be delegated Passed - Visit with relevant provider in past 12 months or upcoming 90 days Recent Visits Date Type Provider Dept 05/02/23 [facility]23 Office Visit Keith [facility] MD [facility] 12/10/22 [facility] 09/10/22 Office Visit Keith Craft MD [facility] 07/18/22 Office Visit Kerri Kauffman, DAIRY FEED WORKER, CLINICAL PROJECT LEADER [facility] Showing recent visits within past 365 days and meeting all other requirements Future Appointments Date Type Provider Dept 08/15/23 Appointment Keith Craft MD [facility] Showing future appointments within next 90 days and meeting all other requirements OMS BROKERAGE AGENT documented in this encounter Plan of Treatment Upcoming Encounters Date Type Department Care Team (Late st Contact Info) Description 07/13/2024 1:30 PM CUSTOMS BROKERAGE AGENT [facility] - Family Medicine - [place] [employer] [employer] [address]2 [place] [address] Liz Capellan L, DO [address] [address] 07/20/2024 2:15 PM CUSTOMS BROKERAGE AGENT [facility] - Endocrinology - [employer] #2 [place] [address] Ana Vivar, DAIRY FEED WORKER, CLINICAL PROJECT LEADER [address] [address] Yasmin Restrepo MD #[address] [address] 07/31/2024 1:00 PM CUSTOMS BROKERAGE AGENT [facility] [address] [place] [address] Werner Swift MD #2 [place] [address] Discharge Disposition: Discharged to home or Selfcare 08/03/2024 1:15 PM CDT Office Visit [facility] Pulmonology & Sleep Medicine [facility] #2 [place] [address] Werner Swift MD #2 [place] [address] 09/02/2024 2:00 PM CDT Appointment [facility] Respiratory Therapy 1 [place] [address] Werner Swift MD #2 [place] [address] Discharge Disposition: Discharged to home or Selfcare 10/09/2024 2:30 PM CDT [facility] Family Medicine [facility] #2 [place] [address] Liz Capellan, DO [address] [address] documented as of this encounter Goals Goal [...] Zones/Action plan education. I will notify my Oracle Sql Developer if my symptoms fall in the y [...] 19 07/13/2023 07/13/2023 07/23/2023 12:1 6 AM CUSTOMS BROKERAGE AGENT Respiratory Rule Out - RPA 03/17/2024 03/17/2024 1 3:36 PM CDT COVID - 19 04/27/2024 04/27/2024 04/27/2024 2:19 PM CUSTOMS BROKERAGE AGENT Assessment Noted Time PHQ-9 Depression Total Score: 1 03/07/20 21 10:29 AM CDT documented as of this encounter Care Teams Construction Code Administrator Relationship Specialty Start Date End Date Keith Craft MD PCP - General Family Medicine 01/14/19 12/26/23 Liz Capellan DO [address] [address] PCP - General Family Medicine 12/27/23 Quang Locke DO Gastroenterology 01/18/16 [place] [address] [address] 05/25/21 Werner Swift MD #2 [place] [address] Consulting Physician Pulmonary Disease 01/30/22 documented as of this encounter
--- OUTSIDE RECORDS SUMMARY | 2024-07-10 13:41 | XMS_ITS | Encounter Summary ---
Author Organization [facility] Address [address] [place] [address] Phone Care Team Providers Care Studio Couch Frame Builder Name Role Phone Quang Locke Unavailable [phone] Keith Craft MD Primary Care Provider [phone] Bri Rollins RN Unavailable Unavailable Silvio Schulte MD Unavailable [phone] Bri Rollins RN Unavailable Unavailable Werner Swift MD Unavailable Liz Capellan DO Primary Care Provider [phone] Reason for Visit * Reason Comments Medication Refill Encounter Details Date Type Department Care Team (Late st Contact Info) Description 02/08/2021 Refill [facility] #2 [place] [address] Keith Craft MD #1 [place] [address] Medication Refill Social History Tobacco Use Types Packs/Day Years Used Date Smoking Tobacco: Former Cigarettes 2 50 1 - 03/16/2018 Smokeless Tobacco: Never Comments:Still uses nictoine patches and gum Alcohol Use Standard Drinks/Week Comments No 0 (1 standard drink = 0.6 oz pur e alcohol) PHQ-2 Answer Date Recorded Total Score - Questions 1-9 0 01/25 Sexually Active Control Partners Comments Not Currently [...] have Coronavirus / COVID-19? No / Unsure 02/10/2021 10:12 AM CDT documented as of this encounter Miscellaneous Notes * Telephone Encounter - Camila Mehta RN - 02/09/2021 11:43 AM CDT [place] last fill date 01/04/21 Medication failed the protocol, provider to review and approve the medication order if appropriate. Requested Prescriptions Pending Prescriptions Disp Refills diazePAM (VALIUM) 10 MG Tablet [Pharmacy Med Name: DIAZEPAM 10 MG TABLET] 30 Tablet 0 Sig: TAKE 1 TABLET BY MOUTH EVERY DAY There is no refill protocol information for this order documented in this encounter Plan of Treatment Upcoming Encounters Date Type Department Care Team (Late st Contact Info) Description 07/13/2024 1:30 PM DIRECTOR OF RESTAURANT OPERATIONS Office Visit [facility] - Family Medicine - [place] [address] [place] [address] Liz Capellan, DO [address] [address] 07/20/2024 2:15 PM DIRECTOR OF RESTAURANT OPERATIONS Office Visit [facility] - Endocrinology - [place] [address]2 [place] [address] Ana Vivar N, HVAC REFRIGERATION TECHNICIAN, WELL FLOW OPERATOR 2 [facility]. [address] [place] [address] Yasmin Restrepo MD [facility] [address] [phone] 07/31/2024 1:00 PM DIRECTOR OF RESTAURANT OPERATIONS [facility] [address] [place] [address] Werner Swift MD #2 [place] [address] Discharge Disposition: Discharged to home or Selfcare 08/03/2024 1:15 PM CDT [facility] #2 [place] [address] Werner Swift MD #2 [place] [address] 09/02/2024 2:00 PM CDT [facility] Res[facility] 1 [place] [address] Werner Swift MD #2 [place] [address] Discharge Disposition: Discharged to home or Selfcare 10/09/2024 2:30 PM CDT Office Visit [facility] - Family Medicine [facility] #2 [place] [address] Liz Capellan, DO 2 [facility] [address] [place] [address] documented as of this encounter Visit Diagnoses Diagnosis Anxiety and depression Dysthymic disorder documented in this encounter Additional Health Concerns Infection Onset Date Last Indicated Resolved Time COVID - 19 07/23/2021 07/23/2021 07/24/2021 6:31 AM DIRECTOR OF RESTAURANT OPERATIONS COVID - 19 10/19/2021 10/19/2021 10/20/2021 7:45 AM CDT Respiratory Rule Out - RPA 10/19/2021 10/19/2021 0 10/20/2021 2:10 PM CDT Stenotrophomonas maltophilia Comment:Must have a follow up respiratory sample to remove isolation flag. 10/20/2021 10/20/2021 COVID - 19 04/20/2022 04/20/2022 04/30/2022 12:1 8 AM DIRECTOR OF RESTAURANT OPERATIONS COVID - 19 07/18/2022 07/18/2022 07/28/2022 12:1 6 AM DIRECTOR OF RESTAURANT OPERATIONS COVID - 19 08/21/2022 08/21/2022 08/22/2022 8:31 AM CDT Respiratory Rule Out - RPA 08/21/2022 08/21/2022 0 08/22/2022 3:21 PM CDT COVID - 19 04/18/2023 04/18/2023 04/28/2023 12:1 6 AM DIRECTOR OF RESTAURANT OPERATIONS COVID - 19 07/13/2023 07/13/2023 07/23/2023 12:1 6 AM DIRECTOR OF RESTAURANT OPERATIONS Respiratory Rule Out - RPA 03/17/2024 03/17/2024 1 3:36 PM CDT COVID - 19 04/27/2024 04/27/2024 04/27/2024 2:19 PM DIRECTOR OF RESTAURANT OPERATIONS Assessment Noted Time PHQ-9 Depression Total Score: 0 02/04/20 21 11:12 AM CDT documented as of this encounter Care Teams Studio Couch Frame Builder Relationship Specialty Start Date End Date Keith Craft MD PCP - General Family Medicine 01/14/19 12/26/23 Liz Capellan DO [address] [address] PCP - General Family Medicine 12/27/23 Quang Locke DO Gastroenterology 01/18/16 Bri Rollins, RN [place] Charging Crane Operator 03/07/21 05/22/23 [place] [id number] [address] 05/25/21 Bri Rollins RN [place] Nurse Charging Crane Operator 03/07/21 05/23/23 Werner Swift MD #2 [place] [address] Consulting Physician Pulmonary Disease 01/30/22 documented as of this encounter
--- OUTSIDE RECORDS SUMMARY | 2024-07-10 13:41 | XMS_ITS | Encounter Summary ---
Author Organization [facility] Address [address] [place] [address] Phone Care Team Providers Care Associate Software Developer Name Role Phone Quang Locke Unavailable Keith Craft MD Primary Care Provider [phone] Bri Rollins RN Unavailable Unavailable Silvio Schulte MD Unavailable [phone] Bri Rollins RN Unavailable Unavailable Werner Swift MD Unavailable Liz Capellan DO Primary Care Provider [phone] Reason for Visit * Reason Comments Medication Refill Encounter Details Date Type Department Care Team (Late st Contact Info) Description 03/07/2022 Refill [facility] Medicine [facility] #2 [place] [address] Keith Craft MD #1 [place] [address] Medication Refill Social History Tobacco Use Types [...] Telephone Encounter - Gloria Cornejo RN - 03/09/2022 7:57 AM CDT Name from pharmacy: HYDROCODONE/ACETAMINOPHEN 7.5-325 TABLET Will file in chart as: HYDROcodone-acetaminophen (NORCO) 7.5-325 MG Tablet The original prescription was reordered on 03/08/2022 by Keith Craft MD. * Telephone Encounter - Gloria Cornejo RN - 03/08/2022 9:51 AM CDT duplicate documented in this encounter Plan of Treatment Upcoming Encounters Date Type Department Care Team (Late st Contact Info) Description 07/13/2024 1:30 PM DEEP TISSUE MASSAGE THERAPIST [facility] Visit [facility] - [facility] Medicine - [place] [address]2 [place] [address] Liz Capellan, DO 2 [facility]. [address] [place] [address] 07/20/2024 2:15 PM DEEP TISSUE MASSAGE THERAPIST Office Visit [facility] - Endocrinology [facility] #2 [place] [address] Ana Vivar, STUNTMAN, TELEVISION NEWS PRODUCER [address] [address] Yasmin Restrepo MD #[address] [phone] 07/31/2024 1:00 PM DEEP TISSUE MASSAGE THERAPIST [facility] [address] [place] [address] Werner Swift MD #2 [place] [address] Discharge Disposition: Discharged to home or Selfcare 08/03/2024 1:15 PM CDT Office Visit [facility] - Pulmonology & Sleep Medicine [facility] #2 [place] [address] Werner Swift MD #2 [place] [address] 09/02/2024 2:00 PM CDT Appoint[facility] Respiratory Therapy 1 [place] [phone] Werner Swift MD #2 [place] [address] Discharge Disposition: Discharged to home or Selfcare 10/09/2024 2:30 PM CDT Office Visit [facility] - Family Medicine [facility] #2 [place] [address] Liz Capellan, DO [address] [place] [address] documented as of this encounter Goals Goal [...] Zones/Action plan education. I will notify my Medical Chief Technician if my symptoms fall in the y [...] 19 04/20/2022 04/20/2022 04/30/2022 12:1 8 AM DEEP TISSUE MASSAGE THERAPIST COVID - 19 07/18/2022 07/18/2022 07/28/2022 12:1 6 AM DEEP TISSUE MASSAGE THERAPIST COVID - 19 08/21/2022 08/21/2022 08/22/2022 8:31 AM CDT Respiratory Rule Out - RPA 08/21/2022 08/21/2022 0 08/22/2022 3:21 PM CDT COVID - 19 04/18/2023 04/18/2023 04/28/2023 12:1 6 AM DEEP TISSUE MASSAGE THERAPIST COVID - 19 07/13/2023 07/13/2023 07/23/2023 12:1 6 AM DEEP TISSUE MASSAGE THERAPIST Respiratory Rule Out - RPA 03/17/2024 03/17/2024 1 3:36 PM CDT COVID - 19 04/27/2024 04/27/2024 04/27/2024 2:19 PM DEEP TISSUE MASSAGE THERAPIST Assessment Noted Time PHQ-9 Depression Total Score: 1 03/07/20 10:29 AM CDT documented as of this encounter Care Teams Associate Software Developer Relationship Specialty Start Date End Date Keith Craft MD PCP - General Family Medicine 01/14/19 12/26/23 Liz Capellan DO [address] [address] PCP - General Family Medicine 12/27/23 Quang Locke DO Gastroenterology 01/18/16 Bri Rollins RN [place] Medical Chief Technician 03/07/21 05/22/23 [place] [address] [address] 05/25/21 Bri Rollins RN [place] Nurse Medical Chief Technician 03/07/21 05/23/23 Werner Swift MD #2 [place] [address] Consulting Physician Pulmonary Disease 01/30/22 documented as of this encounter
--- OUTSIDE RECORDS SUMMARY | 2024-07-10 13:41 | XMS_ITS | Encounter Summary ---
Author Organization [facility] Address [address] [place] [address] Phone Care Team Providers Care Painter Barrel Name Role Phone Quang Locke Unavailable [phone] Keith Craft MD Primary Care Provider [phone] Bri Rollins RN Unavailable Unavailable Silvio Schulte MD Unavailable [phone] Bri Rollins RN Unavailable Unavailable Werner Swift MD Unavailable Liz Capellan DO Primary Care Provider [phone] Reason for Visit * Reason Comments Medication Refill Encounter Details Date Type Department Care Team (Late st Contact Info) Description 02/04/2021 Refill [facility] Medicine [facility] #2 [place] [address] Keith Craft MD #1 [place] [address] Medication Refill Social History Tobacco Use Types Packs/Day Years Used Date Smoking Tobacco: Former Cigarettes 2 50 1 - 03/16/2018 Smokeless Tobacco: Never Comments:Still uses nictoine patches and gum Alcohol Use Standard Drinks/Week Comments No 0 (1 standard drink = 0.6 oz pur e alcohol) PHQ-2 Answer Date Recorded Total Score - Questions 1-9 0 01/25 Comments No Sex and Gender Information Value [...] have Coronavirus / COVID-19? No / Unsure 02/07/2021 10:41 AM CDT documented as of this encounter Miscellaneous Notes * Telephone Encounter - Gloria Cornejo RN - 02/06/2021 10:15 AM CDT Medication warning Per nursing clinical judgement, provider to review and approve the medication(s) order(s) if appropriate. Requested Prescriptions Pending Prescriptions Disp Refills Advair Diskus 500-50 MCG/DOSE AEROSOL POWDER, BREATH ACTIVATED [Pharmacy Med Name: ADVAIR 500-50 DISKUS] 180 Each 0 Sig: INHALE ONE PUFF BY MOUTH TWO TIMES A DAY Inhaled Combinations Protocol Passed - 02/04/2021 6:58 AM Passed - Visit with relevant provider in past 12 months or upcoming 90 days Recent Visits Date Type Provider Dept 02/03/21 Office Visit Brie Denis, [facility] 01/12/21 Office Visit Keith Craft MD [facility] [place] 10/12/20 Office Visit Keith Craft MD [facility] [place] 10/04/20 Office Visit Keith Craft MD [facility] [place] 06/07/20 Office Visit Keith Craft MD [facility] [place] 04/25/20 Office Visit Keith Craft MD [facility] Showing recent visits within past 365 days and meeting all other requirements Future Appointments Date Type Provider Dept 02/07/21 Appointment Keith Craft MD [facility] [place] 04/14/21 Appointment Keith Craft MD [facility] Showing future appointments within next 90 days and meeting all other requirements Passed - Active short-acting beta agonist prescription documented in this encounter Plan of Treatment Upcoming Encounters Date Type Department Care Team (Late st Contact Info) Description 07/13/2024 1:30 PM LUBRICATION SERVICER Office Visit [facility] - Family Medicine - [place] [address]2 [place] [address] Liz Capellan, DO 2 [facility] [address] [place] [address] 07/20/2024 2:15 PM LUBRICATION SERVICER Office Visit [facility] - Endocrinology - [place] [address]2 [place] [address] Ana Vivar, RESEARCH PHLEBOTOMIST, NURSING INSTRUCTOR 2 [facility] [address] [place] [address] Yasmin Restrepo MD #[address] [phone] 07/31/2024 1:00 PM LUBRICATION SERVICER [facility] [address] [place] [address] Werner Swift MD #2 [place] [address] Discharge Disposition: Discharged to home or Selfcare 08/03/2024 1:15 PM CDT Office Visit [facility] - Pulmonology & Sleep Medicine - [place] #2 [place] [address] Werner Swift MD #2 [place] [address] 09/02/2024 2:00 PM CDT Appointment [facility] Respiratory Therapy 1 [place] [address] Werner Swift MD #2 [place] [address] Discharge Disposition: Discharged to home or Selfcare 10/09/2024 2:30 PM CDT Office Visit [facility] - [facility] - [place] #2 [place] [address] Liz Capellan, DO [address] [address] documented as of this encounter Visit Diagnoses Diagnosis Pulmonary emphysema, unspecified emphysema type (HCC) documented in this encounter Additional Health Concerns Infection Onset Date Last Indicated Resolved Time COVID - 19 07/23/2021 07/23/2021 07/24/2021 6:31 AM LUBRICATION SERVICER COVID - 19 10/19/2021 10/19/2021 10/20/2021 7:45 AM CDT Respiratory Rule Out - RPA 10/19/2021 10/19/2021 0 10/20/2021 2:10 PM CDT Stenotrophomonas maltophilia Comment:Must have a follow up respiratory sample to remove isolation flag. 10/20/2021 10/20/2021 COVID - 19 04/20/2022 04/20/2022 04/30/2022 12:1 8 AM LUBRICATION SERVICER COVID - 19 07/18/2022 07/18/2022 07/28/2022 12:1 6 AM LUBRICATION SERVICER COVID - 19 08/21/2022 08/21/2022 08/22/2022 8:31 AM CDT Respiratory Rule Out - RPA 08/21/2022 08/21/2022 0 08/22/2022 3:21 PM CDT COVID - 19 04/18/2023 04/18/2023 04/28/2023 12:1 6 AM LUBRICATION SERVICER COVID - 19 07/13/2023 07/13/2023 07/23/2023 12:1 6 AM LUBRICATION SERVICER Respiratory Rule Out - RPA 03/17/2024 03/17/2024 1 3:36 PM CDT COVID - 19 04/27/2024 04/27/2024 04/27/2024 2:19 PM LUBRICATION SERVICER Assessment Noted Time PHQ-9 Depression Total Score: 0 02/04/20 11:12 AM CDT documented as of this encounter Care Teams Painter Barrel Relationship Specialty Start Date End Date Keith Craft MD PCP - General Family Medicine 01/14/19 12/26/23 Liz Capellan DO [address] [address] PCP - General Family Medicine 12/27/23 Quang Locke DO Gastroenterology 01/18/16 Bri Rollins, RN [place] Sketch Artist 03/07/21 05/22/23 [place] [address] [address] 05/25/21 Bri Rollins, RN [place] Nurse Sketch Artist 03/07/21 05/23/23 Werner Swift MD #2 [place] [address] Consulting Physician Pulmonary Disease 01/30/22 documented as of this encounter
--- OUTSIDE RECORDS SUMMARY | 2024-07-10 13:41 | XMS_ITS | Encounter Summary ---
Author Organization [facility] Address [address] [address] Phone Care Team Providers Care Tie Man Name Role Phone Quang Locke Unavailable [phone] Keith Craft MD Primary Care Provider [phone] Bri Rollins RN Unavailable Unavailable Silvio Schulte MD Unavailable [phone] Bri Rollins RN Unavailable Unavailable Werner Swift MD Unavailable Liz Capellan DO Primary Care Provider [phone] Reason for Visit * Reason Comments Medication Refill Encounter Details Date Type Department Care Team (Late st Contact Info) Description 08/30/2022 Refill [facility] #2 [place] [address] Keith Craft MD #1 [place] [address] Medication Refill Social History Tobacco Use Types [...] suspected to have Coronavirus/COVID-19? No / Unsure 08/31/2022 10:50 AM CDT documented as of this encounter Miscellaneous Notes * Telephone Encounter - Georgia Roblero RN - 08/30/2022 10:06 AM CDT PDMP 08/04/22 Medication failed the protocol, provider to review and approve the medication order if appropriate. Requested Prescriptions Pending Prescriptions Disp Refills Insulin Pen Needle (UltiCare Mini Pen [place]) 31G X 6 MM Misc [Pharmacy Med Name: ULTICARE MINI PEN NEEDLES/31G X 6MM [id number] MISC] 300 Each 1 Sig: USE WITH INSULIN THREE (3) TIMES DAILY Diabetic Supplies Protocol Passed - 08/30/2022 9:45 AM Passed - Visit with relevant provider in past 6 months Recent Visits Date Type Provider Dept 07/18/22 Office Visit Kerri Kauffman, PEDIATRICS PHYSICIAN, TEXTILE SCIENCE TECHNICIAN [facility] 06/07/22 Office Visit Keith Craft MD [facility] 03/02/22 Procedure Visit [facility] 03/02/22 Office Visit Keith Craft MD [facility] Showing recent visits within past 182 days and meeting all other requirements Future Appointments Date Type Provider Dept 09/10/22 Appointment Keith Craft MD [facility] Showing future appointments within next 90 days and meeting all other requirements HYDROcodone-acetaminophen (NORCO) 7.5-325 MG Tablet [Pharmacy Med Name: HYDROCODONE/ACETAMINOPHEN 7.5-325 TABLET] 60 Tablet 0 Sig: TAKE ONE (1) TABLET BY MOUTH TWO (2) TIMES DAILY NEEDED FOR SEVERE PAIN. Not Delegated - Opioid Combinations Protocol Failed - 08/30/2022 9:45 AM Failed - This refill cannot be delegated Passed - Visit with relevant provider in past 12 months or upcoming 90 days Recent Visits Date Type Provider Dept 07/18/22 Office Visit Kerri Kauffman APRN, TEXTILE SCIENCE TECHNICIAN [facility] [place] 06/07/22 Office Visit Keith Craft MD [facility] 03/02/22 Procedure Visit [facility] 03/02/22 [facility]/03[facility]21 Office Visit Keith Craft MD [facility] 10/19/21 Office Visit Keith Craft MD [facility] 10/05/21 Office Visit Keith Craft MD [facility] 09/08/21 Office Visit Brie Denis, [facility] Show[facility] recent visits within past 365 days and meeting all other requirements Future Appointments Date Type Provider Dept 09/10/22 Appointment Keith Craft MD [facility] Showing future appointments within next 90 days and meeting all other requirements diazePAM (VALIUM) 5 MG Tablet [Pharmacy Med Name: DIAZEPAM 5MG TABLET] 30 Tablet 0 Sig: TAKE ONE (1) TABLET BY MOUTH DAILY NEEDED FOR ANXIETY. Not Delegated - Benzodiazepines Protocol Failed - 08/30/2022 9:45 AM Failed - This refill cannot be delegated Passed - Visit with relevant provider in past 12 months or upcoming 90 days Recent Visits Date Type Provider Dept 07/18/22 Office Visit Kerri Kauffman APRN, TEXTILE SCIENCE TECHNICIAN [facility] [place] 06/07/22 Office Visit Keith Craft MD [facility] 03/02/22 Procedure Visit [facility] [place] 03/02/22 Office Visit Keith Craft MD [facility] 11/03/21 Office Visit Keith Craft MD [facility] 10/19/21 Office Visit Keith Craft MD [facility] 10/05/21 Office [facility] 09/08/21 [facility] Show[facility] recent visits within past 365 days and meeting all other requirements Future Appointments Date Type Provider Dept 09/10/22 Appointment Keith Craft MD [facility] Showing future appointments within next 90 days and meeting all other requirements documented in this encounter Plan of Treatment Upcoming Encounters Date Type Department Care Team (Late st Contact Info) Description 07/13/2024 1:30 PM SALES OPERATIONS ASSISTANT Office Visit [facility] - Family Medicine - [place] #2 [place] [address] Liz Capellan L, DO [address] [address] 07/20/2024 2:15 PM SALES OPERATIONS ASSISTANT Office Visit [facility] - Endocrinology - [place] #2 [place] [address] Ana Vivar, PEDIATRICS PHYSICIAN, TEXTILE SCIENCE TECHNICIAN [address] [address] Yasmin Restrepo MD #[address] [place] [address] 07/31/2024 1:00 PM SALES OPERATIONS ASSISTANT [facility] [address] [place] [address] Werner Swift MD #2 [facility] [place] [address] Discharge Disposition: Discharged to home or Selfcare 08/03/2024 1:15 PM CDT Office Visit [facility] - Pulmonology & Sleep Medicine [facility] #2 [place] [address] Werner Swift MD #2 [place] [address] 09/02/2024 2:00 PM CDT Appointment [facility] Respiratory Therapy 1 [place] [address] Werner Swift MD #2 [place] [address] Discharge Disposition: Discharged to home or Selfcare 10/09/2024 2:30 PM CDT Office Visit [facility] Family [facility] #2 [place] [address] Liz Capellan, DO [address] [address] documented as of this encounter Goals Goal [...] Zones/Action plan education. I will notify my Furnace Maintenance if my symptoms fall in the y ellow zone . I will consider receiving an influenza and pneumonia vaccination, if applicable. -I will call the office if I experience any symptoms listed above to discuss at home management options. documented as of this encounter Visit Diagnoses Diagnosis Type 2 diabetes mellitus with diabetic neuropathy, with long-term current use of insulin (HCC) Chronic low back pain, unspecified back pain laterality, unspecified whether sciatica present Anxiety and depression Dysthymic disorder documented in this encounter Additional Health Concerns Infection Onset Date Last Indicated Resolved Time Stenotrophomonas maltophilia Comment:Must have a follow up respiratory sample to remove isolation flag. 10/20/2021 10/20/2021 COVID - 19 04/18/2023 04/18/2023 04/28/2023 12:1 6 AM SALES OPERATIONS ASSISTANT COVID - 19 07/13/2023 07/13/2023 07/23/2023 12:1 6 AM SALES OPERATIONS ASSISTANT Respiratory Rule Out - RPA 03/17/2024 03/17/2024 1 3:36 PM CDT COVID - 19 04/27/2024 04/27/2024 04/27/2024 2:19 PM SALES OPERATIONS ASSISTANT Assessment Noted Time PHQ-9 Depression Total Score: 1 03/07/20 21 10:29 AM CDT documented as of this encounter Care Teams Tie Man Relationship Specialty Start Date End Date Keith Craft MD PCP - General Family Medicine 01/14/19 12/26/23 Liz Capellan DO 2 [place] [address] PCP - General Family Medicine 12/27/23 Quang Locke DO Gastroenterology 01/18/16 Bri Rollins RN [place] Furnace Maintenance 03/07/21 05/22/23 [place] [address] [address] 05/25/21 Bri Rollins RN [place] Nurse Furnace Maintenance 03/07/21 05/23/23 Werner Swift MD #2 [place] [address] Consulting Physician Pulmonary Disease 01/30/22 documented as of this encounter
--- OUTSIDE RECORDS SUMMARY | 2024-07-10 13:41 | XMS_ITS | Encounter Summary ---
Author Organization [facility] Address [address] [place] [address] Phone Care Team Providers Care Studio Engineer Name Role Phone Quang Locke Unavailable [phone] Keith Craft MD Primary Care Provider [phone] Bri Rollins RN Unavailable Unavailable Sivlio Schulte MD Unavailable [phone] Bri Rollins RN Unavailable Unavailable Werner Swift MD Unavailable Liz Capellan DO Primary Care Provider [phone] Reason for Visit * Reason Comments Medication Refill Encounter Details Date Type Department Care Team (Late st Contact Info) Description 01/18/2022 Refill [facility] - [facility] #2 [place] [address] Keith Craft MD #1 [place] [address] Medication Refill Social History Tobacco Use Types [...] Telephone Encounter - Gloria Cornejo RN - 01/18/2022 12:27 PM CDT Medication warning Per nursing clinical judgement, provider to review and approve the medication(s) order(s) if appropriate. Requested Prescriptions Pending Prescriptions Disp Refills DULoxetine (CYMBALTA) [address] Particles [Pharmacy Med Name: DULOXETINE HYDROCHLORIDE 60MG CAPSULE DR PART] 90 Capsule 2 Sig: Take 1 Capsule by mouth daily. Take with 30 mg capsule. SNRI (6 Month Refill Only) Protocol Passed - 01/18/2022 9:41 AM Passed - Visit with relevant provider in past 6 months or upcoming 90 days Recent Visits Date Type Provider Dept 11/03/21 Office Visit Keith Craft MD [facility] 10/19/21 Office Visit Keith Craft MD [facility] 10/05/21 Office Visit Keith Craft MD [facility] 09/08/21 Office Visit Brie Denis PAC [facility] 08/14/21 Office Visit Keith [facility] MD [facility] [...] Reuptake Inhibitors for at least 6 months documented in this encounter Plan of Treatment Upcoming Encounters Date Type Department Care Team (Late st Contact Info) Description 07/13/2024 1:30 PM SENIOR JAVA UI DEVELOPER Office Visit [facility] - Family Medicine [facility] #2 [place] [address] Liz Capellan, DO 2 [facility] [address] [place] [address] 07/20/2024 2:15 PM SENIOR JAVA UI DEVELOPER [facility] [place] #2 [place] [address] Ana Vivar N, THEATER PROJECTIONIST, DIALYSIS PATIENT CARE TECHNICIAN [address] [facility] [address] [place] [address] Yasmin Restrepo MD #[address] [place] [address] 07/31/2024 1:00 PM SENIOR JAVA UI DEVELOPER [facility] [address] [place] [address] Werner Swift MD #2 [place] [address] Discharge Disposition: Discharged to home or Selfcare 08/03/2024 1:15 PM CDT Office Visit [facility] - Pulmonology & Sleep Medicine [facility] #2 [place] [address] Werner Swift MD #2 [place] [address] 09/02/2024 2:00 PM CDT [facility] 1 [facility] [place] [address] Werner Swift MD #2 [facility] [address] Discharge Disposition: Discharged to home or Selfcare 10/09/2024 2:30 PM CDT Office Visit [facility] - Family Medicine [facility] #2 [place] [address] Liz Capellan, DO [address] [address] documented as of this encounter Goals Goal [...] Zones/Action plan education. I will notify my Tankerman if my symptoms fall in the y [...] 04/20/2022 04/20/2022 04/30/2022 12:1 8 AM SENIOR JAVA UI DEVELOPER COVID - 19 07/18/2022 07/18/2022 07/28/2022 12:1 6 AM SENIOR JAVA UI DEVELOPER COVID - 19 08/21/2022 08/21/2022 08/22/2022 8:31 AM CDT Respiratory Rule Out - RPA 08/21/2022 08/21/2022 0 08/22/2022 3:21 PM CDT COVID - 19 04/18/2023 04/18/2023 04/28/2023 12:1 6 AM SENIOR JAVA UI DEVELOPER COVID - 19 07/13/2023 07/13/2023 07/23/2023 12:1 6 AM SENIOR JAVA UI DEVELOPER Respiratory Rule Out - RPA 03/17/2024 03/17/2024 1 3:36 PM CDT COVID - 19 04/27/2024 04/27/2024 04/27/2024 2:19 PM SENIOR JAVA UI DEVELOPER Assessment Noted Time PHQ-9 Depression Total Score: 1 03/07/20 21 10:29 AM CDT documented as of this encounter Care Teams Studio Engineer Relationship Specialty Start Date End Date Keith Craft MD PCP - General Family Medicine 01/14/19 12/26/23 Liz Capellan DO [address] [address] PCP - General Family Medicine 12/27/23 Quang Locke DO Gastroenterology 01/18/16 Bri Rollins RN [place] 03/07/21 05/22/23 [place] [id number] [address] 05/25/21 Bri Rollins RN [place] Nurse [place] 03/07/21 05/23/23 Werner Swift MD #2 [place] [address] Consulting Physician Pulmonary Disease 01/30/22 documented as of this encounter
--- OUTSIDE RECORDS SUMMARY | 2024-07-10 13:41 | XMS_ITS | Encounter Summary ---
Author Organization [facility] Address [address] [place] [address] Phone Care Team Providers Care Auto Garage Attendant Name Role Phone Quang Locke Unavailable [phone] Keith Craft MD Primary Care Provider [phone] Bri Rollins RN Unavailable Unavailable Silvio Schulte MD Unavailable [phone] Bri Rollins RN Unavailable Unavailable Werner Swift MD Unavailable Liz Capellan DO Primary Care Provider [phone] Reason for Visit * Reason Comments Medication Refill Encounter Details Date Type Department Care Team (Late st Contact Info) Description 01/01/2022 Refill [facility] - Family Medicine [facility] #2 [place] [address] Keith Craft MD #1 [place] [address] Medication Refill Social History Tobacco Use Types [...] Telephone Encounter - Gloria Cornejo RN - 01/02/2022 10:54 AM CDT PDMP 12/01/21 Medication failed the protocol, provider to review and approve the medication order if appropriate. Requested Prescriptions Pending Prescriptions Disp Refills diazePAM (VALIUM) 5 MG Tablet [Pharmacy Med Name: DIAZEPAM 5MG TABLET] 30 Tablet 0 Sig: TAKE ONE (1) TABLET BY MOUTH DAILY NEEDED FOR ANXIETY. Not Delegated - Benzodiazepines Protocol Failed - 01/01/2022 9:58 AM Failed - This refill cannot be delegated Passed - Visit with relevant provider in past 12 months or upcoming 90 days Recent Visits Date Type Provider Dept 11/03/21 Office Visit Keith Craft MD [facility] 10/19/21 Office Visit Keith Craft MD [facility] 10/05/21 Office Visit Keith Craft MD [facility] 09/08/21 Office Visit Brie Denis, PAC [facility] [place] 08/14/21 Office Visit Keith Craft MD [facility] 07/31/21 Office Visit Keith Craft MD [facility] 05/25/21 Office Visit Marcin Anderson APRN, JAKOB [facility] [place] 05/05/21 Office Visit Brie Denis, PAC [facility] 04/14/21 Office Visit Keith Craft MD [facility] 03/23/21 Office Visit Keith Craft MD [facility] Showing recent visits within past 365 days and meeting all other requirements Future Appointments Date Type Provider Dept 03/09/22 Appointment Keith Craft MD [facility] Showing future appointments within next 90 days and meeting all other requirements documented in this encounter Plan of Treatment Upcoming Encounters Date Type Department Care Team (Late st Contact Info) Description 07/13/2024 1:30 PM REPACK ROOM WORKER Office Visit [facility] - Family Medicine - [place] #2 [place] [address] Liz Capellan L, DO 2 [facility] [address] [place] [address] 07/20/2024 2:15 PM REPACK ROOM WORKER [facility] [place] [facility]2 [place] [address] Ana Vivar N, SHOW DOG TRAINER, QUALITY HEAD 2 [facility] [address] [place] [address] Yasmin Restrepo MD #[address] [address] 07/31/2024 1:00 PM REPACK ROOM WORKER [facility] [address] [place] [address] Werner Swift MD #2 [place] [address] Discharge Disposition: Discharged to home or Selfcare 08/03/2024 1:15 PM CDT [facility] - [place] #2 [place] [address] Werner Swift MD #2 [place] [address] 09/02/2024 2:00 PM CDT [facility] 1 [place] [address] Werner Swift MD #2 [place] [address] Discharge Disposition: Discharged to home or Selfcare 10/09/2024 2:30 PM CDT Office Visit [facility] - Family [facility] #2 [place] [address] Liz Capellan, DO [address] [address] documented as of this encounter Goals Goal [...] Zones/Action plan education. I will notify my Poultry Dresser if my symptoms fall in the y [...] 19 04/20/2022 04/20/2022 04/30/2022 12:1 8 AM REPACK ROOM WORKER COVID - 19 07/18/2022 07/18/2022 07/28/2022 12:1 6 AM REPACK ROOM WORKER COVID - 19 08/21/2022 08/21/2022 08/22/2022 8:31 AM CDT Respiratory Rule Out - RPA 08/21/2022 08/21/2022 0 08/22/2022 3:21 PM CDT COVID - 19 04/18/2023 04/18/2023 04/28/2023 12:1 6 AM REPACK ROOM WORKER COVID - 19 07/13/2023 07/13/2023 07/23/2023 12:1 6 AM REPACK ROOM WORKER Respiratory Rule Out - RPA 03/17/2024 03/17/2024 1 3:36 PM CDT COVID - 19 04/27/2024 04/27/2024 04/27/2024 2:19 PM REPACK ROOM WORKER Assessment Noted Time PHQ-9 Depression Total Score: 1 03/07/20 21 10:29 AM CDT documented as of this encounter Care Teams Auto Garage Attendant Relationship Specialty Start Date End Date Keith Craft MD PCP - General Family Medicine 01/14/19 12/26/23 Liz Capellan DO [address] [address] PCP - General Family Medicine 12/27/23 Quang Locke DO Gastroenterology 01/18/16 Bri Rollins RN [place] Poultry Dresser 03/07/21 05/22/23 [place] [address] [address] 05/25/21 Bri Rollins RN [place] Nurse Poultry Dresser 03/07/21 05/23/23 Werner Swift MD #2 [place] [address] Consulting Physician Pulmonary Disease 01/30/22 documented as of this encounter
--- OUTSIDE RECORDS SUMMARY | 2024-07-10 13:41 | XMS_ITS | Encounter Summary ---
Author Organization [facility] Address [address] [place] [address] Phone Care Team Providers Care Director Of Radio Services Name Role Phone Quang Locke Unavailable [phone] Keith Craft MD Primary Care Provider [phone] Bri Rollins RN Unavailable Unavailable Silvio Schulte MD Unavailable [phone] Bri Rollins RN Unavailable Unavailable Werner Swift MD Unavailable Liz Capellan DO Primary Care Provider [phone] Reason for Visit * Reason Comments Medication Refill Encounter Details Date Type Department Care Team (Late st Contact Info) Description 02/27/2022 Refill [facility] - Family [facility] #2 [place] [address] Keith Craft MD #1 [place] [address] Medication Refill Social History Tobacco Use Types [...] Telephone Encounter - Gloria Cornejo RN - 02/27/2022 1:50 PM CDT PDMP 03/03/22 Medication failed the protocol, provider to review and approve the medication order if appropriate. Requested Prescriptions Pending Prescriptions Disp Refills diazePAM (VALIUM) 5 MG Tablet [Pharmacy Med Name: DIAZEPAM 5MG TABLET] 30 Tablet 0 Sig: TAKE ONE (1) TABLET BY MOUTH DAILY NEEDED FOR ANXIETY. Not Delegated - Benzodiazepines Protocol Failed - 02/27/2022 12:33 PM Failed - This refill cannot be delegated Passed - Visit with relevant provider in past 12 months or upcoming 90 days Recent Visits Date Type Provider Dept 11/03/21 Office Visit Keith Craft MD [facility] 10/19/21 Office Visit Keith Craft MD [facility] 10/05/21 Office Visit Keith Craft MD [facility] 09/08/21 Office Visit Brie Denis, NICOLE [facility] [place] 08/14/21 Office Visit Keith Craft MD [facility] 07/31/21 Office Visit Keith Craft MD [facility] 05/25/21 Office Visit Marcin Anderson, SEWER PIPE OFFBEARER, CUSTODIAN BLOOD BANK [facility] [place] 05/05/21 Office Visit Brie Denis, [facility] 04/14/21 Office Visit Keith [facility] [place] 03/23/21 Office Visit Keith Craft MD [facility] Showing recent visits within past 365 days and meeting all other requirements Future Appointments Date Type Provider Dept 03/02/22 Appointment Keith [facility] [place] 03/02/22 Appointment [facility]AL [facility] 03/09/22 Appointment [facility] future appointments within next 90 days and meeting all other requirements documented in this encounter Plan of Treatment Upcoming Encounters Date Type Department Care Team (Late st Contact Info) Description 07/13/2024 1:30 PM DENTAL CERAMIST Office Visit [facility] - Family Medicine - [place] #2 [place] [address] Liz Capellan, DO 2 [facility] [address] [place] [address] 07/20/2024 2:15 PM DENTAL CERAMIST Office Visit [facility] - Endocrinology - [place] #2 [facility] [place] [address] Ana Vivar, REBECCA, CUSTODIAN BLOOD BANK 2 [facility] [address] [place] [address] Yasmin Restrepo MD #[address] [place] [address] 07/31/2024 1:00 PM DENTAL CERAMIST [facility] [address] [place] [address] Werner Swift MD #2 [facility] [place] [address] Discharge Disposition: Discharged to home or Selfcare 08/03/2024 1:15 PM CDT Office Visit [facility] - Pulmonology & Sleep Medicine [facility] #2 [place] [address] Werner Swift MD #2 [place] [address] 09/02/2024 2:00 PM CDT Appointment [facility] Respiratory Therapy 1 [place] [address] Werner Swift MD #2 [place] [address] Discharge Disposition: Discharged to home or Selfcare 10/09/2024 2:30 PM CDT Office Visit [facility] Family [facility] #2 [place] [address] Liz Capellan, DO [address] [address] documented as of this encounter Goals Goal [...] Zones/Action plan education. I will notify my Brim Rounder if my symptoms fall in the y [...] 19 04/20/2022 04/20/2022 04/30/2022 12:1 8 AM DENTAL CERAMIST COVID - 19 07/18/2022 07/18/2022 07/28/2022 12:1 6 AM DENTAL CERAMIST COVID - 19 08/21/2022 08/21/2022 08/22/2022 8:31 AM CDT Respiratory Rule Out - RPA 08/21/2022 08/21/2022 0 08/22/2022 3:21 PM CDT COVID - 19 04/18/2023 04/18/2023 04/28/2023 12:1 6 AM DENTAL CERAMIST COVID - 19 07/13/2023 07/13/2023 07/23/2023 12:1 6 AM DENTAL CERAMIST Respiratory Rule Out - RPA 03/17/2024 03/17/2024 1 3:36 PM CDT COVID - 19 04/27/2024 04/27/2024 04/27/2024 2:19 PM DENTAL CERAMIST Assessment Noted Time PHQ-9 Depression Total Score: 1 03/07/20 21 10:29 AM CDT documented as of this encounter Care Teams Director Of Radio Services Relationship Specialty Start Date End Date Keith Craft MD PCP - General Family Medicine 8/21/19 8/1/24 Liz Capellan DO 2 [facility] [place] [address] [address] PCP - General Family Medicine 12/27/23 Quang Lokce DO Gastroenterology 01/18/16 Bri Rollins, RN [place] Brim Rounder 03/07/21 05/22/23 [place] [address] [address] 05/25/21 Bri Rollins, RN [place] Nurse Brim Rounder 03/07/21 05/23/23 Werner Swift MD #2 [place] [address] Consulting Physician Pulmonary Disease 01/30/22 documented as of this encounter
--- OUTSIDE RECORDS SUMMARY | 2024-07-10 13:41 | XMS_ITS | Encounter Summary ---
Author Organization [facility] Address [address] [place] [address] Phone Care Team Providers Care Education Associate Name Role Phone Quang Locke Unavailable [phone] Keith Craft MD Primary Care Provider [phone] Bri Rollins RN Unavailable Unavailable Silvio Schulte MD Unavailable [phone] Bri Rollins RN Unavailable Unavailable Werner Swift MD Unavailable Liz Capellan DO Primary Care Provider [phone] Reason for Visit * Reason Comments Medication Refill Encounter Details Date Type Department Care Team (Late st Contact Info) Description 07/09/2022 Refill [facility] - Family Medicine [facility] #2 [place] [address] Keith Craft MD #1 [place] [address] Medication Refill Social History Tobacco Use Types [...] Telephone Encounter - Georgia Roblero RN - 07/09/2022 11:01 AM CENTRAL OFFICE MAINTAINER Medication failed the protocol, provider to review and approve the medication order if appropriate. Requested Prescriptions Pending Prescriptions Disp Refills theophylline (THEOCHRON) 400 MG TABLET SR 24 HR [Pharmacy Med Name: THEOPHYLLINE ER 400MG ER TABLETER 24HR] 90 Tablet 3 Sig: TAKE ONE (1) CAPSULE BY MOUTH DAILY. Not Delegated - Theophyllines Protocol Failed - 07/09/2022 10:27 AM Failed - This refill cannot be delegated Passed - Visit with relevant provider in past 12 months or upcoming 90 days Recent Visits Date Type Provider Dept 06/07/22 Office Visit Keith Craft MD [facility] 03/02/22 Procedure Visit [facility]AL [facility] [place] 03/02/22 Office Visit Keith Craft MD [facility] 11/03/21 Office Visit Keith Craft MD [facility] 10/19/21 Office Visit Keith Craft MD [facility] 10/05/21 Office Visit Keith Craft MD [facility] 09/08/21 Office Visit Brie Denis, PAC [facility] [place] 08/14/21 Office Visit Keith Craft MD [facility] 07/31/21 Office Visit Keith Craft MD [facility] [place] Showing recent visits within past 365 days and meeting all other requirements Future Appointments Date Type Provider Dept 09/10/22 Appointment Keith Craft MD [facility] Showing future appointments within next 90 days and meeting all other requirements Movantik 25 MG Tablet [Pharmacy Med Name: MOVANTIK 25MG TABLET] 30 Tablet 3 Sig: TAKE ONE (1) TABLET BY MOUTH EVERY MORNING (BEFORE BREAKFAST). Not Delegated - Naloxone Protocol Failed - 07/09/2022 10:27 AM Failed - This refill cannot be delegated Passed - Visit with relevant provider in past 12 months or upcoming 90 days Recent Visits Date Type Provider Dept 06/07/22 Office Visit Keith Craft MD [facility] 03/02/22 Procedure [facility] Office Visit Keith Craft MD [facility] 11/03/21 Office Visit Keith Craft MD [facility] 10/19/21 Office Visit Keith Craft MD [facility] 10/05/21 Office Visit Keith Craft MD [facility] 09/08/21 [facility]21 Office Visit Keith rCaft MD [facility] [place] Showing recent visits within past 365 days and meeting all other requirements Future Appointments Date Type Provider Dept 09/10/22 Appointment Keith Craft MD [facility] [place] Showing future appointments within next 90 days and meeting all other requirements RAL OFFICE MAINTAINER documented in this encounter Plan of Treatment Upcoming Encounters Date Type Department Care Team (Late st Contact Info) Description 07/13/2024 1:30 PM CENTRAL OFFICE MAINTAINER Office Visit [facility] - Family Medicine - [place] #2 [place] [address] Liz Capellan, DO 2 [facility] [place] [address] [address] 07/20/2024 2:15 PM CENTRAL OFFICE MAINTAINER Office Visit [facility] - Endocrinology [facility] #2 [place] [address] Ana Vivar, TERRITORY OUTSIDE SALES MANAGER, CLINICAL ASSISTANT PROFESSOR 2 [facility] [address] [place] [address] Yasmin Restrepo MD #[address] [address] 07/31/2024 1:00 PM CENTRAL OFFICE MAINTAINER [facility] [address] [place] [address] Werner Swift MD #2 [place] [address] Discharge Disposition: Discharged to home or Selfcare 08/03/2024 1:15 PM CDT Office Visit [facility] - Pulmonology & Sleep Medicine [facility] #2 [place] [address] Werner Swift MD #2 [place] [address] 09/02/2024 2:00 PM CDT [facility] 1 [place] [address] Werner Swift MD #2 [place] [address] Discharge Disposition: Discharged to home or Selfcare 10/09/2024 2:30 PM CDT Office Visit [facility] - Family Medicine [facility] #2 [place] [address] Liz Capellan, DO 2 [facility] [address] [place] [address] documented as of this encounter Goals Goal [...] Zones/Action plan education. I will notify my Manager Hematology if my symptoms fall in the y [...] isolation flag. 10/20/2021 10/20/2021 COVID - 19 07/18/2022 07/18/2022 07/28/2022 12:1 6 AM CENTRAL OFFICE MAINTAINER COVID - 19 08/21/2022 08/21/2022 08/22/2022 8:31 AM CDT Respiratory Rule Out - RPA 08/21/2022 08/21/2022 0 08/22/2022 3:21 PM CDT COVID - 19 04/18/2023 04/18/2023 04/28/2023 12:1 6 AM CENTRAL OFFICE MAINTAINER COVID - 19 07/13/2023 07/13/2023 07/23/2023 12:1 6 AM CENTRAL OFFICE MAINTAINER Respiratory Rule Out - RPA 03/17/2024 03/17/2024 1 3:36 PM CDT COVID - 19 04/27/2024 04/27/2024 04/27/2024 2:19 PM CENTRAL OFFICE MAINTAINER Assessment Noted Time PHQ-9 Depression Total Score: 1 03/07/20 10:29 AM CDT documented as of this encounter Care Teams Education Associate Relationship Specialty Start Date End Date Keith Craft MD PCP - General Family Medicine 01/14/19 12/26/23 Liz Capellan DO [address] [address] PCP - General Family Medicine 12/27/23 Quang Locke DO Gastroenterology 01/18/16 Bri Rollins RN [place] Manager Hematology 03/07/21 05/22/23 [place] [address] [address] 05/25/21 Bri Rollins RN [place] Nurse Manager Hematology 03/07/21 05/23/23 Werner Swift MD #2 [place] [address] Consulting Physician Pulmonary Disease 01/30/22 documented as of this encounter
--- OUTSIDE RECORDS SUMMARY | 2024-07-10 13:41 | XMS_ITS | Encounter Summary ---
Author Organization [facility] Address [address] [place] [address] Phone Care Team Providers Care Book Sewing Machine Operator Name Role Phone Quang Locke Unavailable [phone] Keith Craft MD Primary Care Provider [phone] Bri Rollins RN Unavailable Unavailable Silvio Schulte MD Unavailable [phone] Bri Rollins RN Unavailable Unavailable Werner Swift MD Unavailable Liz Capellan DO Primary Care Provider [phone] Reason for Visit * Reason Comments Medication Refill Encounter Details Date Type Department Care Team (Late st Contact Info) Description 04/18/2022 Refill [facility] #2 [place] [address] Keith Craft MD #1 [place] [address] Medication Refill Social History Tobacco Use Types [...] suspected to have Coronavirus/COVID-19? No / Unsure 04/20/2022 1:05 PM GERM DRIER documented as of this encounter Miscellaneous Notes * Telephone Encounter - Gloria Cornejo RN - 04/18/2022 10:37 AM CST Medication failed the protocol, provider to review and approve the medication order if appropriate. Requested Prescriptions Pending Prescriptions Disp Refills DULoxetine (CYMBALTA) [address] Particles [Pharmacy Med Name: DULOXETINE HYDROCHLORIDE 30MG CAPSULE DR PART] 90 Capsule 1 Sig: TAKE ONE (1) CAPSULE BY MOUTH DAILY. TO TAKE DAILY WITH THE 60 MG TAB. SNRI (6 Month Refill Only) Protocol Failed - 04/18/2022 9:27 AM Failed - Patient has established therapy with Serotonin-Norepinephrine Reuptake Inhibitors for at least 6 months Passed - Visit with relevant provider in past 6 months or upcoming 90 days Recent Visits Date Type Provider Dept 03/02/22 Procedure Visit [facility] 03/02/22 Office Visit Keith Craft MD [facility] 11/03/21 Office Visit Keith Craft MD [facility] 10/19/21 Office Visit Keith Craft MD [facility] Showing recent visits within past 182 days and meeting all other requirements Future Appointments Date Type Provider Dept 06/04/22 Appointment Keith Craft MD [facility] Showing future appointments within next 90 days and meeting all other requirements Passed - Has an encounter in the past 6 months with a depression or anxiety visit diagnosis DRIER documented in this encounter Plan of Treatment Upcoming Encounters Date Type Department Care Team (Late st Contact Info) Description 07/13/2024 1:30 PM GERM DRIER Office Visit [facility] - Family Medicine [facility] #2 [facility] [address] Liz Capellan, DO 2 [facility] [address] [place] [address] 07/20/2024 2:15 PM GERM DRIER [facility] [place] [facility]2 [place] [address] Ana Vivar N, CYLINDER DYER, LITHOGRAPHIC ARTIST 2 [facility] [address] [place] [address] Yasmin Restrepo MD #[address] [place] [address] 07/31/2024 1:00 PM GERM DRIER [facility] [address] [place] [address] Werner Swift MD #2 [place] [address] Discharge Disposition: Discharged to home or Selfcare 08/03/2024 1:15 PM CDT Office Visit [facility] - Pulmonology & Sleep Medicine [facility] #2 [place] [address] Werner Swift MD #2 [place] [address] 09/02/2024 2:00 PM CDT [facility]ment [facility] 1 [facility] [place] [address] Werner Swift MD #2 [facility] [place] [address] Discharge Disposition: Discharged to home or Selfcare 10/09/2024 2:30 PM CDT Office Visit [facility] - Family Medicine [facility] #2 [place] [address] Liz Capellan, DO [address] [address] documented as of this encounter Goals Goal [...] Zones/Action plan education. I will notify my Spray I Painter if my symptoms fall in the y [...] 19 04/20/2022 04/20/2022 04/30/2022 12:1 8 AM GERM DRIER COVID - 19 07/18/2022 07/18/2022 07/28/2022 12:1 6 AM GERM DRIER COVID - 19 08/21/2022 08/21/2022 08/22/2022 8:31 AM CDT Respiratory Rule Out - RPA 08/21/2022 08/21/2022 0 08/22/2022 3:21 PM CDT COVID - 19 04/18/2023 04/18/2023 04/28/2023 12:1 6 AM GERM DRIER COVID - 19 07/13/2023 07/13/2023 07/23/2023 12:1 6 AM GERM DRIER Respiratory Rule Out - RPA 03/17/2024 03/17/2024 1 3:36 PM CDT COVID - 19 04/27/2024 04/27/2024 04/27/2024 2:19 PM GERM DRIER Assessment Noted Time PHQ-9 Depression Total Score: 1 03/07/20 21 10:29 AM CDT documented as of this encounter Care Teams Book Sewing Machine Operator Relationship Specialty Start Date End Date Keith Craft MD PCP - General Family Medicine 01/14/19 12/26/23 Liz Capellan DO [address] [address] PCP - General Family Medicine 12/27/23 Quang Locke DO Gastroenterology 01/18/16 Bri Rollins RN [place] Spray I Painter 03/07/21 05/22/23 [place] [id number] [address] 05/25/21 Bri Rollins RN [place] Nurse Spray I Painter 03/07/21 05/23/23 Werner Swift MD #2 [place] [address] Consulting Physician Pulmonary Disease 01/30/22 documented as of this encounter
--- OUTSIDE RECORDS SUMMARY | 2024-07-10 13:41 | XMS_ITS | Encounter Summary ---
Author Organization [facility] Address [address] [place] [address] Phone Care Team Providers Care General Agent Name Role Phone Quang Locke Unavailable [phone] Keith Craft MD Primary Care Provider [phone] Bri Rollins RN Unavailable Unavailable Silvio Schulte MD Unavailable Bri Rollins RN Unavailable Unavailable Werner Swift MD Unavailable Liz Capellan DO Primary Care Provider [phone] Reason for Visit * Reason Comments Medication Refill Encounter Details Date Type Department Care Team (Late st Contact Info) Description 03/17/2022 Refill [facility] #2 [place] [address] Keith Craft MD #1 [place] [address] Medication Refill Social History Tobacco Use Types [...] Telephone Encounter - Gloria Cornejo RN - 03/19/2022 12:01 PM CDT Medication failed the protocol, provider to review and approve the medication order if appropriate. Requested Prescriptions Pending Prescriptions Disp Refills ergocalciferol (VITAMIN D) [address]50 UNIT Capsule [Pharmacy Med Name: VITAMIN D [id number] CAPSULE] 12 Capsule 0 Sig: TAKE ONE CAPSULE BY MOUTH ONE TIME WEEKLY Vitamin Supplements (Adult) Protocol Failed - 03/17/2022 10:30 AM Failed - Vitamin D less than 1.25mg Passed - Visit with relevant provider in past 12 months or upcoming 90 days Recent Visits Date Type Provider Dept 03/02/22 Procedure Visit [facility]a 03/02/22 Office Visit Keith Craft MD [facility] 11/03/21 Office Visit Keith Craft MD [facility] 10/19/21 Office Visit Keith Craft MD [facility] 10/05/21 Office Visit Keith Craft MD [facility] [place] 09/08/21 Office Visit Brie Denis, PAC [facility] 08/14/21 Office Visit Keith Craft MD [facility] [place] 07/31/21 Office Visit Keith Craft MD [facility] 05/25/21 Office Visit Marcin Anderson APRN, JAKOB [facility] [place] 05/05/21 Office Visit Brie Denis, NICOLE [facility] Z[facility] Showing recent visits within past 365 days and meeting all other requirements Future Appointments Date Type Provider Dept 06/04/22 Appointment Keith Craft, MD [facility] Showing future appointments within next 90 days and meeting all other requirements SUMAtriptan (IMITREX) 100 MG Tablet [Pharmacy Med Name: SUMATRIPTAN SUCCINATE 100MG TABLET] 9 Tablet 3 Sig: DIRECTED BY PHYSICIAN MAY REPEAT DOSE IF HEADACHE RECURS Not Delegated - Serotonin Agonists (Oral and Nasal) Protocol Failed - 03/17/2022 10:30 AM Failed - This refill cannot be delegated; check utilization no more than 9 doses per month Passed - Visit with relevant provider in past 24 months or upcoming 90 days Recent Visits Date Type Provider Dept 03/02/22 Procedure Visit [facility] 03/02/22 Office Visit Keith Craft MD [facility] 11/03/21 Office Visit Keith Craft MD [facility] [place] 10/19/21 Office Visit Keith Craft MD [facility] [place] 10/05/21 Office Visit Keith Craft MD [facility] [place] 09/08/21 Office Visit Brie Denis, NICOLE [facility] 08/14/21 Office Visit Keith Craft MD [facility] [place] 07/31/21 Office Visit Keith Craft MD [facility] [place] 05/25/21 Office Visit Marcin Anderson APRN, JAKOB [facility] 05/05/21 Office Visit Brie Denis, NICOLE [facility] Showing recent visits within past 730 days and meeting all other requirements Future Appointments Date Type Provider Dept 06/04/22 Appointment Keith Craft MD [facility] Showing future appointments within next 90 days and meeting all other requirements Passed - No documented Systolic BP > 200 within past 3 months Passed - Number of active Serotonergic medications less than 3 amitriptyline (ELAVIL) 25 MG Tablet [Pharmacy Med Name: AMITRIPTYLINE HCL 25MG TABLET] 90 Tablet 0 Sig: TAKE ONE (1) TABLET BY MOUTH NIGHTLY. Not Delegated - Tricyclic Agents Protocol Failed - 03/17/2022 10:30 AM Failed - This refill cannot be delegated Passed - Visit with relevant provider in past 12 months or upcoming 90 days Recent Visits Date Type Provider Dept 03/02/22 Procedure Visit [facility] 03/02/22 Office Visit Keith Craft MD [facility] 11/03/21 [facility], [facility] 10/19/21 Office Visit Keith Craft, [facility] 10/05/21 Office Visit Keith Craft, [facility] [place] 09/08/21 Office Visit Brie Denis, PAC [facility] [place] 08/14/21 Office Visit Keith Craft, [facility] 07/31/21 Office Visit Keith Craft, [facility] [place] 05/25/21 Office Visit Marcin Anderson, SPA ASSISTANT MANAGER, BOTTOM STEEP TENDER [facility] 05/05/21 Office Visit Brie Denis, [facility] Showing recent visits within past 365 days and meeting all other requirements Future Appointments Date Type Provider Dept 06/04/22 Appointment Keith Craft MD [facility] Showing future appointments within next 90 days and meeting all other requirements albuterol 108 (90 Base) MCG/ACT Aerosol Solution [Pharmacy Med Name: ALBUTEROL SULFATE HFA HFA AEROSOL SOLN] 18 g 1 Sig: USE TWO (2) PUFF(S) BY INHALATION ROUTE EVERY FOUR (4) HOURS NEEDED WHEEZING Short Acting Inhaled Beta-Agonists Protocol Passed - 03/17/2022 10:30 AM Passed - Visit with relevant provider in past 12 months or upcoming 90 days Recent Visits Date Type Provider Dept 03/02/22 Procedure Visit AZ[facility]AB[facility] RETINAL [facility]AGING [facility] 03/02/22 Office Visit Keith Craft MD [facility] 11/03/21 Office Visit Keith Craft MD [facility] [place] 10/19/21 Office Visit Keith Craft, [facility] [place] 10/05/21 Office Visit Keith Craft, [facility] 09/08/21 Office Visit Brie Denis, PAC [facility] 08/14/21 Office Visit Keith Craft, [facility] [place] 07/31/21 Office Visit Keith Craft, [facility] [place] 05/25/21 Office Visit Marcin Anderson APRN, BOTTOM STEEP TENDER [facility] [place] 05/05/21 Office Visit Brie Denis, PAC [facility] [place] Showing recent visits within past 365 days and meeting all other requirements Future Appointments Date Type Provider Dept 06/04/22 Appointment Keith Craft, MD [facility] Showing future appointments within next 90 days and meeting all other requirements Refused Prescriptions Disp Refills Movantik 25 MG Tablet [Pharmacy Med Name: MOVANTIK 25MG TABLET] 30 Tablet 3 Sig: TAKE ONE (1) TABLET BY MOUTH EVERY MORNING (BEFORE BREAKFAST). Not Delegated - Naloxone Protocol Failed - 03/17/2022 10:30 AM Failed - This refill cannot be delegated Passed - Visit with relevant provider in past 12 months or upcoming 90 days Recent Visits Date Type Provider Dept 03/02/22 Procedure Visit [facility] 03/02/22 Office Visit Keith Craft MD [facility] 11/03/21 Office Visit Keith Craft MD [facility] 10/19/21 Office Visit Keith Craft MD [facility] [place] 10/05/21 Office Visit Keith Craft MD [facility] [place] 09/08/21 Office Visit Brie Denis, PAC [facility] [place] 08/14/21 Office Visit Keith Craft, MD [facility] 07/31/21 Office Visit Keith Craft, [facility] [place] 05/25/21 Office Visit Marcin Anderson APRN, BOTTOM STEEP TENDER [facility] 05/05/21 Office Visit Brie Denis, PAC [facility] Showing recent visits within past 365 days and meeting all other requirements Future Appointments Date Type Provider Dept 06/04/22 Appointment Keith Craft MD [facility] Showing future appointments within next 90 days and meeting all other requirements documented in this encounter Plan of Treatment Upcoming Encounters Date Type Department Care Team (Late st Contact Info) Description 07/13/2024 1:30 PM ZOOLOGY PROFESSOR Office Visit [facility] Medical [facility] - Family Medicine - [place] #2 [place] [address] Liz Capellan L, DO 2 [facility] [address] [place] [address] 07/20/2024 2:15 PM ZOOLOGY PROFESSOR Office Visit [facility] - Endocrinology - [place] #2 [place] [address] Ana Vivar N, SPA ASSISTANT MANAGER, BOTTOM STEEP TENDER 2 [facility] [address] [place] [address] Yasmin Restrepo MD #[address] [place] [address] 07/31/2024 1:00 PM ZOOLOGY PROFESSOR [facility] [place] [address] Werner Swift MD #2 [facility] [place] [address] Discharge Disposition: Discharged to home or Selfcare 08/03/2024 1:15 PM CDT Office Visit [facility] Pulmonology & Sleep Medicine - [place] #2 [place] [address] Werner Swift MD #2 [place] [address] 09/02/2024 2:00 PM CDT [facility]ointment [facility] Res[facility] 1 [place] [address] Werner Swift MD #2 [place] [address] Discharge Disposition: Discharged to home or Selfcare 10/09/2024 2:30 PM CDT Office Visit [facility] Medical Group - Family [facility] #2 [place] [address] Liz Capellan, DO [address] [address] documented as of this encounter Goals Goal [...] Zones/Action plan education. I will notify my Career Center Director if my symptoms fall in the y ellow zone . I will consider receiving an influenza and pneumonia vaccination, if applicable. -I will call the office if I experience any symptoms listed above to discuss at home management options. documented as of this encounter Visit Diagnoses Diagnosis Insomnia, unspecified type Pulmonary emphysema, unspecified emphysema type (HCC) documented in this encounter Additional Health Concerns Infection Onset Date Last Indicated Resolved Time Stenotrophomonas maltophilia Comment:Must have a follow up respiratory sample to remove isolation flag. 10/20/2021 10/20/2021 COVID - 19 04/20/2022 04/20/2022 04/30/2022 12:1 8 AM ZOOLOGY PROFESSOR COVID - 19 07/18/2022 07/18/2022 07/28/2022 12:1 6 AM ZOOLOGY PROFESSOR COVID - 19 08/21/2022 08/21/2022 08/22/2022 8:31 AM CDT Respiratory Rule Out - RPA 08/21/2022 08/21/2022 0 08/22/2022 3:21 PM CDT COVID - 19 04/18/2023 04/18/2023 04/28/2023 12:1 6 AM ZOOLOGY PROFESSOR COVID - 19 07/13/2023 07/13/2023 07/23/2023 12:1 6 AM ZOOLOGY PROFESSOR Respiratory Rule Out - RPA 03/17/2024 03/17/2024 1 3:36 PM CDT COVID - 19 04/27/2024 04/27/2024 04/27/2024 2:19 PM ZOOLOGY PROFESSOR Assessment Noted Time PHQ-9 Depression Total Score: 1 03/07/20 21 10:29 AM CDT documented as of this encounter Care Teams General Agent Relationship Specialty Start Date End Date Keith Craft MD PCP - General Family Medicine 01/14/19 12/26/23 Liz Capellan DO 2 [place] [address] PCP - General Family Medicine 12/27/23 Quang Locke DO Gastroenterology 01/18/16 Bri Rollins, KATEY [place] Career Center Director 03/07/21 05/22/23 [place] [address] [address] 05/25/21 Bri Rollins RN [place] Nurse Career Center Director 03/07/21 05/23/23 Werner Swift MD #2 [place] [address] Consulting Physician Pulmonary Disease 01/30/22 documented as of this encounter
--- OUTSIDE RECORDS SUMMARY | 2024-07-10 13:41 | XMS_ITS | Encounter Summary ---
Author Organization [facility] Address [address] [place] [address] Phone Care Team Providers Care Gun Sealing Machine Operator Name Role Phone Quang Locke Unavailable [phone] Keith Craft MD Primary Care Provider [phone] Bri Rollins RN Unavailable Unavailable Silvio Schulte MD Unavailable [phone] Bri Rollins RN Unavailable Unavailable Werner Swift MD Unavailable Liz Capellan DO Primary Care Provider [phone] Reason for Visit * Reason Comments Medication Refill Encounter Details Date Type Department Care Team (Late st Contact Info) Description 07/31/2022 Refill [facility] #2 [place] [address] Keith Craft MD #1 [place] [address] Medication Refill Social History Tobacco Use Types [...] suspected to have Coronavirus/COVID-19? No / Unsure 07/18/2022 12:40 PM SALES UTILITY REPRESENTATIVE documented as of this encounter Miscellaneous Notes * Telephone Encounter - Gloria Conrejo RN - 07/31/2022 3:06 PM CST PDMP 07/06/22 Medication failed the protocol, provider to review and approve the medication order if appropriate. Requested Prescriptions Pending Prescriptions Disp Refills diazePAM (VALIUM) 5 MG Tablet [Pharmacy Med Name: DIAZEPAM 5MG TABLET] 30 Tablet 0 Sig: TAKE ONE (1) TABLET BY MOUTH DAILY NEEDED FOR ANXIETY. Not Delegated - Benzodiazepines Protocol Failed - 07/31/2022 12:42 PM Failed - This refill cannot be delegated Passed - Visit with relevant provider in past 12 months or upcoming 90 days Recent Visits Date Type Provider Dept 07/18/22 Office Visit Kerri Kauffman, DRYWALL SANDER, LENS CUTTER [facility] [place] 06/07/22 Office Visit Keith Craft MD [facility] 03/02/22 Procedure Visit [facility] DIAB[facility]INAL [facility]AG[facility] [place] 03/02/22 Office Visit Keith Craft MD [facility] 11/03/21 Office Visit Keith Craft MD [facility] 10/19/21 Office Visit [facility] 10/05/21 Office Visit [facility] 09/08/21 Office [facility] 07/31/21 Office Visit [facility] Showing recent visits within past 365 days and meeting all other requirements Future Appointments Date Type Provider Dept 09/10/22 Appointment Keith Craft MD [facility] Showing future appointments within next 90 days and meeting all other requirements S UTILITY REPRESENTATIVE documented in this encounter Plan of Treatment Upcoming Encounters Date Type Department Care Team (Late st Contact Info) Description 07/13/2024 1:30 PM SALES UTILITY REPRESENTATIVE Office Visit [facility] Medical [facility] - Family Medicine - [place] #2 [place] [address] Liz Capellan, DO [address] [address] 07/20/2024 2:15 PM SALES UTILITY REPRESENTATIVE Office Visit [facility] - Endocrinology - [place] #2 [place] [address] Ana Vivar, DRYWALL SANDER, LENS CUTTER [address] [address] Yasmin Restrepo MD #[address] [address] 07/31/2024 1:00 PM SALES UTILITY REPRESENTATIVE [facility] [address] [place] [address] Werner Swift MD #2 [place] [address] Discharge Disposition: Discharged to home or Selfcare 08/03/2024 1:15 PM CDT Office Visit [facility] - Pulmonology & Sleep Medicine [facility] #2 [place] [address] Werner Swift MD #2 [place] [address] 09/02/2024 2:[address] [facility] Respiratory Therapy 1 [place] [address] Werner Swift MD #2 [place] [address] Discharge Disposition: Discharged to home or Selfcare 10/09/2024 2:30 PM CDT Office Visit [facility] Family Medicine [facility] #2 [place] [address] Liz Capellan, DO [address] [address] documented as of this encounter Goals Goal [...] Zones/Action plan education. I will notify my Milieu Manager if my symptoms fall in the y [...] isolation flag. 10/20/2021 10/20/2021 COVID - 19 08/21/2022 08/21/2022 08/22/2022 8:31 AM CDT Respiratory Rule Out - RPA 08/21/2022 08/21/2022 0 08/22/2022 3:21 PM CDT COVID - 19 04/18/2023 04/18/2023 04/28/2023 12:1 6 AM SALES UTILITY REPRESENTATIVE COVID - 19 07/13/2023 07/13/2023 07/23/2023 12:1 6 AM SALES UTILITY REPRESENTATIVE Respiratory Rule Out - RPA 03/17/2024 03/17/2024 1 3:36 PM CDT COVID - 19 04/27/2024 04/27/2024 04/27/2024 2:19 PM SALES UTILITY REPRESENTATIVE Assessment Noted Time PHQ-9 Depression Total Score: 1 03/07/20 21 10:29 AM CDT documented as of this encounter Care Teams Gun Sealing Machine Operator Relationship Specialty Start Date End Date Keith Craft MD PCP - General Family Medicine 01/14/19 12/26/23 Liz Capellan DO 2 [place] [address] PCP - General Family Medicine 12/27/23 Quang Locke DO Gastroenterology 01/18/16 Bri Rollins, RN [place] Milieu Manager 03/07/21 05/22/23 [place] [id number] [address] 05/25/21 Bri Rollins RN [place] Nurse Milieu Manager 03/07/21 05/23/23 Werner Swift MD #2 [place] [address] Consulting Physician Pulmonary Disease 01/30/22 documented as of this encounter
--- OUTSIDE RECORDS SUMMARY | 2024-07-10 13:41 | XMS_ITS | Encounter Summary ---
Author Organization [facility] Address [address] [place] [address] Phone Care Team Providers Care Cook Tortilla Name Role Phone Quang Locke Unavailable [phone] Keith Craft MD Primary Care Provider [phone] Bri Rollins RN Unavailable Unavailable Silvio Schulte MD Unavailable [phone] Bri Rollins RN Unavailable Unavailable Werner Swift MD Unavailable Liz Capellan DO Primary Care Provider [phone] Reason for Visit * Reason Comments Medication Refill Encounter Details Date Type Department Care Team (Late st Contact Info) Description 02/05/2021 Refill [facility] #2 [place] [address] Keith Craft MD #1 [place] [address] Medication Refill Social History Tobacco Use Types [...] Encounter - Gloria Cornejo RN - 02/06/2021 4:15 PM CDT Medication failed the protocol, provider to review and approve the medication order if appropriate. Requested Prescriptions Pending Prescriptions Disp Refills valACYclovir (VALTREX) 500 MG Tablet [Pharmacy Med Name: VALACYCLOVIR HCL 500 MG TABLET] 90 Tablet 3 Sig: TAKE 1 TABLET BY MOUTH EVERY DAY AT NIGHT [facility] Not Delegated - Antimicrobials: Antiviral Agents - Anti-Herpetic Failed - 02/05/2021 3:44 PM Failed - This refill cannot be delegated Passed - Valid encounter within last 12 months Past Office Visits Recent Outpatient Visits 3 days ago Type 2 diabetes mellitus with diabetic neuropathy, with long-term current use of insulin(HCC) [facility] - Brie Castano PAC 3 weeks ago Chronic low back pain, unspecified back pain laterality, unspecified whether sciatica present [facility] Keith Lemus MD 3 months ago Pneumonia of right upper lobe due to infectious organism [facility] Keith Lemus MD 4 months ago Hypoglycemia [facility] Keith Lemus MD 8 months ago Mixed hyperlipidemia [facility] Keith Lemus MD Upcoming Appointments Future Appointments Tomorrow Keith Craft MD [facility] In 2 months Keith Craft MD [facility] MAINTENANCE INSPECTOR - Recent and Past Visits Recent Visits Date Type Provider Dept 02/03/21 Office Visit Analiamanny Brie [place], NICOLE [facility] 01/12/21 Office Visit Keith Craft, [facility] 10/12/20 Office Visit Keith Craft, [facility] 10/04/20 Office Visit Keith Craft, MD [facility] 06/07/20 Office Visit Keith Craft MD [facility] 04/25/20 Office Visit Keith Craft MD [facility] 02/02/20 Office Visit Keith Cratf, [facility] Showing recent visits within past 460 days with a meds authorizing provider and meeting all other requirements Future Appointments Date Type Provider Dept 02/07/21 Appointment Keith Craft MD [facility] 04/14/21 Appointment Keith [facility] MD [facility] Showing future appointments within next 90 days with a meds authorizing provider and meeting all other requirements documented in this encounter Plan of Treatment Upcoming Encounters Date Type Department Care Team (Late st Contact Info) Description 07/13/2024 1:30 PM TREE TAPPING LABORER Office Visit [facility] Family Medicine - [place] [address]2 [facility] [place] [address] Liz Capellan, DO 2 [facility] [address] [place] [address] 07/20/2024 2:15 PM TREE TAPPING LABORER Office Visit [facility] - Endocrinology - [place] #2 [facility] [place] [address] Ana Vivar, RUBBER WASHER, CAMPUS POLICE OFFICER [address] [facility], [address] [address] Yasmin Restrepo MD #[address] [phone] 07/31/2024 1:00 PM TREE TAPPING LABORER [facility] [address] [place] [address] Werner Swift MD #2 [place] [address] Discharge Disposition: Discharged to home or Selfcare 08/03/2024 1:15 PM CDT [facility] #2 [place] [address] Werner Swift MD #2 [place] [address] 09/02/2024 2:00 PM CDT [facility] [address] [place] [address] Werner Swift MD #2 [place] [address] Discharge Disposition: Discharged to home or Selfcare 10/09/2024 2:30 PM CDT [facility] [address]2 [place] [address] Liz Capellan, DO 2 [facility] [address] [address] documented as of this encounter Visit Diagnoses Not on filedocumented in this encounter Additional Health Concerns Infection Onset Date Last Indicated Resolved Time COVID - 19 07/23/2021 07/23/2021 07/24/2021 6:31 AM TREE TAPPING LABORER COVID - 19 10/19/2021 10/19/2021 10/20/2021 7:45 AM CDT Respiratory Rule Out - RPA 10/19/2021 10/19/2021 0 10/20/2021 2:10 PM CDT Stenotrophomonas maltophilia Comment:Must have a follow up respiratory sample to remove isolation flag. 10/20/2021 10/20/2021 COVID - 19 04/20/2022 04/20/2022 04/30/2022 12:1 8 AM TREE TAPPING LABORER COVID - 19 07/18/2022 07/18/2022 07/28/2022 12:1 6 AM TREE TAPPING LABORER COVID - 19 08/21/2022 08/21/2022 08/22/2022 8:31 AM CDT Respiratory Rule Out - RPA 08/21/2022 08/21/2022 0 08/22/2022 3:21 PM CDT COVID - 19 04/18/2023 04/18/2023 04/28/2023 12:1 6 AM TREE TAPPING LABORER COVID - 19 07/13/2023 07/13/2023 07/23/2023 12:1 6 AM TREE TAPPING LABORER Respiratory Rule Out - RPA 03/17/2024 03/17/2024 1 3:36 PM CDT COVID - 19 04/27/2024 04/27/2024 04/27/2024 2:19 PM TREE TAPPING LABORER Assessment Noted Time PHQ-9 Depression Total Score: 0 02/04/20 21 11:12 AM CDT documented as of this encounter Care Teams Cook Tortilla Relationship Specialty Start Date End Date Keith Craft MD PCP - General Family Medicine 01/14/19 12/26/23 Liz Capellan DO [address] [address] PCP - General Family Medicine 12/27/23 Quang Locke DO Gastroenterology 01/18/16 Bri Rollins RN [place] Pill Packer 03/07/21 05/22/23 [place] [id number] [address] 05/25/21 Bri Rollins RN [place] Nurse Pill Packer 03/07/21 05/23/23 Werner Swift MD #2 [place] [address] Consulting Physician Pulmonary Disease 01/30/22 documented as of this encounter
--- OUTSIDE RECORDS SUMMARY | 2024-07-10 13:41 | XMS_ITS | Encounter Summary ---
Author Organization [facility] Address [address] [place] [address] Phone Care Team Providers Care Hatchery Attendant Name Role Phone Quang Locke Unavailable [phone] Keith Craft MD Primary Care Provider [phone] Bri Rollins RN Unavailable Unavailable Silvio Schulte MD Unavailable [phone] Bri Rollins RN Unavailable Unavailable Werner Swift MD Unavailable Liz Capellan DO Primary Care Provider [phone] Reason for Visit * Reason Comments Medication Refill Encounter Details Date Type Department Care Team (Late st Contact Info) Description 05/25/2022 Refill [facility] #2 [place] [address] Keith Craft MD #1 [place] [address] Medication Refill Social History Tobacco Use Types [...] suspected to have Coronavirus/COVID-19? No / Unsure 05/01/2022 1:41 PM ENVIRONMENT ARTIST documented as of this encounter Miscellaneous Notes * Telephone Encounter - Gloria Cornejo RN - 05/25/2022 1:27 PM CST PDMP 05/03/22 Medication failed the protocol, provider to review and approve the medication order if appropriate. Requested Prescriptions Pending Prescriptions Disp Refills diazePAM (VALIUM) 5 MG Tablet [Pharmacy Med Name: DIAZEPAM 5MG TABLET] 30 Tablet 0 Sig: TAKE ONE (1) TABLET BY MOUTH DAILY NEEDED FOR ANXIETY. Not Delegated - Benzodiazepines Protocol Failed - 05/25/2022 12:33 PM Failed - This refill cannot be delegated Passed - Visit with relevant provider in past 12 months or upcoming 90 days Recent Visits Date Type Provider Dept 03/02/22 Procedure [facility]22 Office Visit Keith Craft MD [facility] 11/03/21 Office Visit Keith Craft MD [facility] 10/19/21 Office Visit Keith Craft MD [facility] 10/05/21 Office Visit Keith Craft MD [facility] 09/08/21 Office Visit [facility]rie Denis, [facility] 08/14/21 Office Visit Keith Craft MD [facility] 07/31/21 Office Visit Keith [facility] 05/25/21 Office Visit Marcin Anderson APRN, CHEMICAL LABORATORY TECHNICIAN [facility] Showing recent visits within past 365 days and meeting all other requirements Future Appointments Date Type Provider Dept 06/07/22 Appointment Keith Craft MD [facility] Showing future appointments within next 90 days and meeting all other requirements RONMENT ARTIST documented in this encounter Plan of Treatment Upcoming Encounters Date Type Department Care Team (Late st Contact Info) Description 07/13/2024 1:30 PM ENVIRONMENT ARTIST [facility] [place] [address]2 [place] [address] Liz Capellan, DO 2 [facility] [address] [place] [address] 07/20/2024 2:15 PM ENVIRONMENT ARTIST [facility] - Endocr[facility]ology - [place] #[address] [place] [address] Ana Vivar, REBECCA, CHEMICAL LABORATORY TECHNICIAN [address] [facility] [address] [place] [address] Yasmin Restrepo MD #[address] [phone] 07/31/2024 1:00 PM ENVIRONMENT ARTIST [facility] [address] [place] [address] Werner Swift MD #2 [place] [address] Discharge Disposition: Discharged to home or Selfcare 08/03/2024 1:15 PM CDT Office Visit [facility] - Pulmonology & Sleep Medicine - [place] #2 [place] [address] Werner Swift MD #2 [place] [address] 09/02/2024 2:00 PM CDT [facility] 1 [place] [address] Werner Swift MD #2 [place] [address] Discharge Disposition: Discharged to home or Selfcare 10/09/2024 2:30 PM CDT Office Visit [facility] - Family [facility] #2 [place] [address] Liz Capellan, DO [address] [address] documented as of this encounter Goals Goal [...] Zones/Action plan education. I will notify my Leaf Stripper if my symptoms fall in the y [...] 19 07/18/2022 07/18/2022 07/28/2022 12:1 6 AM ENVIRONMENT ARTIST COVID - 19 08/21/2022 08/21/2022 08/22/2022 8:31 AM CDT Respiratory Rule Out - RPA 08/21/2022 08/21/2022 0 08/22/2022 3:21 PM CDT COVID - 19 04/18/2023 04/18/2023 04/28/2023 12:1 6 AM ENVIRONMENT ARTIST COVID - 19 07/13/2023 07/13/2023 07/23/2023 12:1 6 AM ENVIRONMENT ARTIST Respiratory Rule Out - RPA 03/17/2024 03/17/2024 1 3:36 PM CDT COVID - 19 04/27/2024 04/27/2024 04/27/2024 2:19 PM ENVIRONMENT ARTIST Assessment Noted Time PHQ-9 Depression Total Score: 1 03/07/20 21 10:29 AM CDT documented as of this encounter Care Teams Hatchery Attendant Relationship Specialty Start Date End Date Keith Craft MD PCP - General Family Medicine 01/14/19 12/26/23 Liz Capellan DO 2 [facility] [address] [address] PCP - General Family Medicine 12/27/23 Quang Locke DO Gastroenterology 01/18/16 Bri Rollins RN [place] Leaf Stripper 03/07/21 05/22/23 [place] [address] [address] 05/25/21 Bri Rollins RN [place] Nurse Leaf Stripper 03/07/21 05/23/23 Werner Swift MD #2 [place] [address] Consulting Physician Pulmonary Disease 01/30/22 documented as of this encounter
--- OUTSIDE RECORDS SUMMARY | 2024-07-10 13:41 | XMS_ITS | Encounter Summary ---
Author Organization [facility] Address [address] [place] [address] Phone Care Team Providers Care Chlorobutadiene Scrubber Operator Name Role Phone Quang Locke Unavailable [phone] Keith Craft MD Primary Care Provider [phone] Bri Rollins RN Unavailable Unavailable Silvio Schulte MD Unavailable [phone] Bri Rollins RN Unavailable Unavailable Werner Swift MD Unavailable Liz Capellan DO Primary Care Provider [phone] Reason for Visit * Reason Comments Medication Refill Encounter Details Date Type Department Care Team (Late st Contact Info) Description 11/29/2020 Refill [facility] #2 [place] [address] Keith Craft MD #1 [place] [address] Medication Refill Social History Tobacco Use Types [...] Telephone Encounter - Keerthi Kline RN - 11/29/2020 12:10 PM CDT Medication failed the protocol, provider to review and approve the medication order if appropriate.Last OV 10/12/20, last UDS 06/07/20. PDMP reviewed. Requested Prescriptions Pending Prescriptions Disp Refills diazePAM (VALIUM) 10 MG Tablet [Pharmacy Med Name: DIAZEPAM 10 MG TABLET] 30 Tablet 0 Sig: TAKE 1 TABLET BY MOUTH EVERY DAY There is no refill protocol information for this order documented in this encounter Plan of Treatment Upcoming Encounters Date Type Department Care Team (Late st Contact Info) Description 07/13/2024 1:30 PM HEARING CARE PROFESSIONAL Office Visit [facility] - Family Medicine - [place] #2 [place] [address] Liz Capellan, DO 2 [facility]. [address] [place] [address] 07/20/2024 2:15 PM HEARING CARE PROFESSIONAL Office Visit [facility] - Endocrinology - [place] #2 [place] [phone] Ana Vivar, FREIGHT BRAKEMAN, DONOR RECRUITER 2 [facility] [address] [place] [address] Yasmin Restrepo MD #[address] [address] 07/31/2024 1:00 PM HEARING CARE PROFESSIONAL [facility] [address] [place] [address] Werner Swift MD #2 [place] [address] Discharge Disposition: Discharged to home or Selfcare 08/03/2024 1:15 PM CDT [facility] #2 [place] [address] Werner Swift MD #2 [place] [address] 09/02/2024 2:00 PM CDT [facility] 1 [place] [address] Werner Swift MD #2 [place] [address] Discharge Disposition: Discharged to home or Selfcare 10/09/2024 2:30 PM CDT [facility] Visit [facility] #2 [place] [address] Liz Capellan, DO 2 [facility] [address] [place] [address] documented as of this encounter Visit Diagnoses Diagnosis Anxiety and depression Dysthymic disorder documented in this encounter Additional Health Concerns Infection Onset Date Last Indicated Resolved Time COVID - 19 01/25/2021 01/25/2021 01/31/2021 8:10 AM CDT Respiratory Rule Out - RPA 01/30/2021 01/30/2021 0 02/01/2021 12:45 AM CDT COVID - 19 07/23/2021 07/23/2021 07/24/2021 6:31 AM HEARING CARE PROFESSIONAL COVID - 19 10/19/2021 10/19/2021 10/20/2021 7:45 AM CDT Respiratory Rule Out - RPA 10/19/2021 10/19/2021 0 10/20/2021 2:10 PM CDT Stenotrophomonas maltophilia Comment:Must have a follow up respiratory sample to remove isolation flag. 10/20/2021 10/20/2021 COVID - 19 04/20/2022 04/20/2022 04/30/2022 12:1 8 AM HEARING CARE PROFESSIONAL COVID - 19 07/18/2022 07/18/2022 07/28/2022 12:1 6 AM HEARING CARE PROFESSIONAL COVID - 19 08/21/2022 08/21/2022 08/22/2022 8:31 AM CDT Respiratory Rule Out - RPA 08/21/2022 08/21/2022 0 08/22/2022 3:21 PM CDT COVID - 19 04/18/2023 04/18/2023 04/28/2023 12:1 6 AM HEARING CARE PROFESSIONAL COVID - 19 07/13/2023 07/13/2023 07/23/2023 12:1 6 AM HEARING CARE PROFESSIONAL Respiratory Rule Out - RPA 03/17/2024 03/17/2024 1 3:36 PM CDT COVID - 19 04/27/2024 04/27/2024 04/27/2024 2:19 PM HEARING CARE PROFESSIONAL Assessment Noted Time PHQ-9 Depression Total Score: 2 06/07/19 21 2:34 PM HEARING CARE PROFESSIONAL documented as of this encounter Care Teams Chlorobutadiene Scrubber Operator Relationship Specialty Start Date End Date Keith Craft MD PCP - General Family Medicine 01/14/19 12/26/23 Liz Capellan DO 2 [facility] [address] [address] PCP - General Family Medicine 12/27/23 Quang Locke DO Gastroenterology 01/18/16 Bri Rollins, RN [place] Radio Talk Show Host 03/07/21 05/22/23 [place] [address] [address] 05/25/21 Bri Rollins RN [place] Nurse Radio Talk Show Host 03/07/21 05/23/23 Werner Swift MD #2 [place] [address] Consulting Physician Pulmonary Disease 01/30/22 documented as of this encounter
--- OUTSIDE RECORDS SUMMARY | 2024-07-10 13:41 | XMS_ITS | Encounter Summary ---
Author Organization [facility] Address [address] [place] [address] Phone Care Team Providers Care Catering Attendant Name Role Phone Quang Locke Unavailable Keith Craft MD Primary Care Provider [phone] Bri Rollins RN Unavailable Unavailable Silvio Schulte MD Unavailable [phone] Bri Rollins RN Unavailable Unavailable Werner Swift MD Unavailable Liz Capellan DO Primary Care Provider [phone] Reason for Visit * Reason Comments Medication Refill Encounter Details Date Type Department Care Team (Late st Contact Info) Description 05/01/2022 Refill [facility] Medicine [facility] #2 [place] [address] Keith Craft MD #1 [place] [address] Medication Refill Social History Tobacco Use Types [...] Coronavirus/COVID-19? No / Unsure 05/01/2022 1:41 PM DRIER HELPER documented as of this encounter Miscellaneous Notes * Telephone Encounter - Gloria Cornejo RN - 05/01/2022 3:00 PM CST PDMP 04/03/22 Medication failed the protocol, provider to review and approve the medication order if appropriate. Requested Prescriptions Pending Prescriptions Disp Refills diazePAM (VALIUM) 5 MG Tablet [Pharmacy Med Name: DIAZEPAM 5MG TABLET] 30 Tablet 0 Sig: TAKE ONE (1) TABLET BY MOUTH DAILY NEEDED FOR ANXIETY. Not Delegated - Benzodiazepines Protocol Failed - 05/01/2022 2:33 PM Failed - This refill cannot be delegated Passed - Visit with relevant provider in past 12 months or upcoming 90 days Recent Visits Date Type Provider Dept 03/02/22 Procedure [facility]22 Office Visit Keith Craft MD [facility] 11/03/21 Office Visit Keith Craft MD [facility] 10/19/21 Office Visit Keith Craft MD [facility] 10/05/21 Office Visit Keith Craft MD [facility] 09/08/21 Office Visit Brie Denis, PAC [facility] 08/14/21 Office Visit Keith Craft MD [facility] 07/31/21 Office Visit Keith [facility] MD [facility] 05/25/21 Office Visit Marcin Anderson, MANAGING DIRECTOR [place], SHEEP SORTER [facility] 05/05/21 Office Visit Brie Denis PAC [facility] Showing recent visits within past 365 days and meeting all other requirements Future Appointments Date Type Provider Dept 06/04/22 Appointment Keith Craft MD [facility] Showing future appointments within next 90 days and meeting all other requirements R HELPER documented in this encounter Plan of Treatment Upcoming Encounters Date Type Department Care Team (Late st Contact Info) Description 07/13/2024 1:30 PM DRIER HELPER [facility] [place] #2 [place] [address] Liz Capellan L, DO [address] [address] 07/20/2024 2:15 PM DRIER HELPER Office Visit [facility] - Endocrinology - [place] #2 [place] [address] Ana Vivar, REBECCA, SHEEP SORTER [address] [address] Yasmin Restrepo MD #[address] [phone] 07/31/2024 1:00 PM DRIER HELPER [facility] [address] [place] [address] Werner Swift MD #2 [place] [address] Discharge Disposition: Discharged to home or Selfcare 08/03/2024 1:15 PM CDT [facility] #2 [place] [address] Werner Swift MD #2 [place] [address] 09/02/2024 2:00 PM CDT Appointment [facility] Res[facility] Therapy 1 [place] [address] Werner Swift MD #2 [place] [address] Discharge Disposition: Discharged to home or Selfcare 10/09/2024 2:30 PM CDT Office Visit [facility] Family [facility] [place] #2 [place] [address] Liz Capellan, DO [address] [address] documented as of this encounter Goals Goal [...] Zones/Action plan education. I will notify my Machine Tool Designer if my symptoms fall in the y [...] 19 07/18/2022 07/18/2022 07/28/2022 12:1 6 AM DRIER HELPER COVID - 19 08/21/2022 08/21/2022 08/22/2022 8:31 AM CDT Respiratory Rule Out - RPA 08/21/2022 08/21/2022 0 08/22/2022 3:21 PM CDT COVID - 19 04/18/2023 04/18/2023 04/28/2023 12:1 6 AM DRIER HELPER COVID - 19 07/13/2023 07/13/2023 07/23/2023 12:1 6 AM DRIER HELPER Respiratory Rule Out - RPA 03/17/2024 03/17/2024 1 3:36 PM CDT COVID - 19 04/27/2024 04/27/2024 04/27/2024 2:19 PM DRIER HELPER Assessment Noted Time PHQ-9 Depression Total Score: 1 03/07/20 21 10:29 AM CDT documented as of this encounter Care Teams Catering Attendant Relationship Specialty Start Date End Date Keith Craft MD PCP - General Family Medicine 01/14/19 12/26/23 Liz Capellan DO 2 [place] [address] PCP - General Family Medicine 12/27/23 Quang Locke DO Gastroenterology 01/18/16 Bri Rollins, RN [place] Machine Tool Designer 03/07/21 05/22/23 [place] [address] [address] 05/25/21 Bri Rollins RN [place] Nurse Machine Tool Designer 03/07/21 05/23/23 Werner Swift MD #2 [place] [address] Consulting Physician Pulmonary Disease 01/30/22 documented as of this encounter
--- OUTSIDE RECORDS SUMMARY | 2024-07-10 13:41 | XMS_ITS | Encounter Summary ---
Author Organization [facility] Address [address] [place] [address] Phone Care Team Providers Care Raw Shellfish Preparer Name Role Phone Quang Locke Unavailable [phone] Keith Craft MD Primary Care Provider [phone] Bri Rollins RN Unavailable Unavailable Silvio Schulte MD Unavailable [phone] Bri Rollins RN Unavailable Unavailable Werner Swift MD Unavailable Liz Capellan DO Primary Care Provider [phone] Reason for Visit * Reason Comments Medication Refill Encounter Details Date Type Department Care Team (Late st Contact Info) Description 08/03/2022 [facility]ill [facility] [address] [place] [address] Keith Craft MD [address] [place] [address] Medication Refill Social History Tobacco Use Types [...] Coronavirus/COVID-19? No / Unsure 07/18/2022 12:40 PM SEO CONSULTANT documented as of this encounter Miscellaneous Notes * Telephone Encounter - Gloria Cornejo RN - 08/03/2022 12:13 PM CST PDMP 07/07/22 - Pharmacy closed on Saturday Medication failed the protocol, provider to review and approve the medication order if appropriate. Requested Prescriptions Pending Prescriptions Disp Refills HYDROcodone-acetaminophen (NORCO) 7.5-325 MG Tablet [Pharmacy Med Name: HYDROCODONE/ACETAMINOPHEN 7.5-325 TABLET] 60 Tablet 0 Sig: TAKE ONE (1) TABLET BY MOUTH TWO (2) TIMES DAILY NEEDED FOR SEVERE PAIN. Not Delegated - Opioid Combinations Protocol Failed - 08/03/2022 11:30 AM Failed - This refill cannot be delegated Passed - Visit with relevant provider in past 12 months or upcoming 90 days Recent Visits Date Type Provider Dept 07/18/22 Office Visit Kerri Kauffman, DIGITAL SALES MANAGER, NEEDLE PROCESS FELT GOODS SUPERVISOR [facility] 06/07/22 Office Visit Keith Craft MD [facility] 03/02/22 Procedure Visit [facility] 03[facility]02/22 Office [facility] 11/03/21 Office Visit Keith Craft MD [facility] 10/19/21 Office Visit Ketih Craft MD [facility] 10/05/21 Office Visit Keith Craft MD [facility] 09/08/21 Office Visit Brie Denis, PAC [facility] 08/14/21 Office Visit [facility] Showing recent visits within past 365 days and meeting all other requirements Future Appointments Date Type Provider Dept 09/10/22 Appointment Keith Craft MD [facility] Showing future appointments within next 90 days and meeting all other requirements Dexilant 60 MG CAPSULE DELAYED RELEASE [Pharmacy Med Name: DEXILANT 60MG DR CAPSULE DR] 90 Capsule 1 Sig: TAKE ONE CAPSULE BY MOUTH DAILY Proton Pump Inhibitors Protocol Passed - 08/03/2022 11:30 AM Passed - Visit with relevant provider in past 12 months or upcoming 90 days Recent Visits Date Type Provider Dept 07/18/22 Office Visit Kerri Kauffman, DIGITAL SALES MANAGER, NEEDLE PROCESS FELT GOODS SUPERVISOR [facility] 06/07/22 [facility] 03/02/22 Procedure Visit [facility] [place] 03/02/22 Office Visit Keith Craft MD [facility] 11/03/21 Office Visit Keith Craft MD [facility] 10/19/21 Office Visit Keith Craft MD [facility] 10/05/21 Office Visit Keith Craft MD [facility] 09/08/21 Office Visit Bire Denis, PAC [facility] 08/14/21 Office Visit Keith Craft MD [facility] Showing recent visits within past 365 days and meeting all other requirements Future Appointments Date Type Provider Dept 09/10/22 Appointment Keith Craft MD [facility] Showing future appointments within next 90 days and meeting all other requirements Refused Prescriptions Disp Refills rosuvastatin (CRESTOR) 20 MG Tablet [Pharmacy Med Name: ROSUVASTATIN CALCIUM 20MG TABLET] 90 Tablet1 Sig: TAKE ONE (1) TABLET BY MOUTH NIGHTLY. Hmg CoA Reductase Inhibitors Protocol Passed - 08/03/2022 11:30 AM Passed - Visit with relevant provider in past 12 months or upcoming 90 days Recent Visits Date Type Provider Dept 07/18/22 Office Visit Kerri Kauffman, DIGITAL SALES MANAGER, NEEDLE PROCESS FELT GOODS SUPERVISOR [facility] 06/07/22 Office Visit Keith Craft MD [facility] 03/02/22 Procedure Visit [facility] 03/02/22 Office Visit Keith Craft MD [facility] [place] 11/03/21 Office Visit Keith Craft MD [facility] 10/19/21 Office Visit Keith Craft, [facility] [place] 10/05/21 Office Visit Keith Craft, [facility] 09/08/21 Office Visit Brie Denis, PAC [facility] 08/14/21 Office Visit Keith [facility] [place] Showing recent visits within past 365 days and meeting all other requirements Future Appointments Date Type Provider Dept 09/10/22 Appointment Keith Craft MD [facility] [place] Showing future appointments within next 90 days and meeting all other requirements Passed - Lipid panel in past 12 months LDL Date Value Ref Range Status 06/07/2022 29 5 - 130 mg/dL Final 05/07/2022 18 0 - 130 mg/dL Final HDL CHOLESTEROL Date Value Ref Range Status 06/07/2022 35.8 (L) >40 mg/dL Final CHOLESTEROL Date Value Ref Range Status 06/07/2022 92 <=200 mg/dL Final TRIGLYCERIDES Date Value Ref Range Status 06/07/2022 137 <150 mg/dL Final VLDL Date Value Ref Range Status 06/07/2022 27 5 - 55 mg/dL Final CHOL/HDL RATIO Date Value Ref Range Status 06/07/2022 2.6 0.0 - 4.4 Final NON-HDL CHOLESTEROL Date Value Ref Range Status 06/07/2022 56.2 <130 mg/dL Final CONSULTANT * Telephone Encounter - Gloria Cornejo RN - 08/03/2022 12:09 PM CST Images from the original note were not included. Rosuvastatin Calcium Dispensed Days Supply Quantity Provider Pharmacy ROSUVASTATIN 20MG TAB 07/30/2022 90 90 Tablet Silvio Schulte MD [facility]/pharmacy #[id number] - W... ROSUVASTATIN 20MG TAB 05/10/2022 90 90 Tablet Keith Craft MD [facility]... CONSULTANT documented in this encounter Plan of Treatment Upcoming Encounters Date Type Department Care Team (Late st Contact Info) Description 07/13/2024 1:30 PM SEO CONSULTANT [facility] [place] [address] [place] [address] Liz Capellan, DO 2 [facility] [address] [place] [address] 07/20/2024 2:15 PM SEO CONSULTANT [facility] [place] [address] [place] [phone] Aan Vivar, DIGITAL SALES MANAGER, NEEDLE PROCESS FELT GOODS SUPERVISOR 2 [facility] [address] [place] [address] Yasmin Restrepo MD #[address] [phone] 07/31/2024 1:00 PM SEO CONSULTANT [facility] [address] [place] [phone] Werner Swift MD [address] [place] [address] Discharge Disposition: Discharged to home or Selfcare 08/03/2024 1:15 PM CDT [facility] [address] [place] [address] Werner Swift MD #[address] [place] [address] 09/02/2024 2:00 PM CDT [facility]ment [facility] [address] [place] [address] Werner Swift MD [address] [place] [address] Discharge Disposition: Discharged to home or Selfcare 10/09/2024 2:30 PM CDT Office Visit [facility] [place] [address] Liz Capellan, DO [address] [address] documented as of this encounter Goals Goal [...] Zones/Action plan education. I will notify my Pharmaceutical Salesperson if my symptoms fall in the y [...] 19 04/18/2023 04/18/2023 04/28/2023 12:1 6 AM SEO CONSULTANT COVID - 19 07/13/2023 07/13/2023 07/23/2023 12:1 6 AM SEO CONSULTANT Respiratory Rule Out - RPA 03/17/2024 03/17/2024 1 3:36 PM CDT COVID - 19 04/27/2024 04/27/2024 04/27/2024 2:19 PM SEO CONSULTANT Assessment Noted Time PHQ-9 Depression Total Score: 1 03/07/20 21 10:29 AM CDT documented as of this encounter Care Teams Raw Shellfish Preparer Relationship Specialty Start Date End Date Keith Craft MD PCP - General Family Medicine 01/14/19 12/26/23 Liz Capellan DO [address] [address] PCP - General Family Medicine 12/27/23 Quang Locke DO Gastroenterology 01/18/16 Bri Rollins, [place] Pharmaceutical Salesperson 03/07/21 05/22/23 [place] [id number] [address] 05/25/21 Bri Rollins RN [place] Nurse Pharmaceutical Salesperson 03/07/21 05/23/23 Werner Swift MD [address] [place] [address] Consulting Physician Pulmonary Disease 01/30/22 documented as of this encounter
--- OUTSIDE RECORDS SUMMARY | 2024-07-10 13:41 | XMS_ITS | Encounter Summary ---
Author Organization [facility] Address [address] [place] [address] Phone Care Team Providers Care Skin Peeling Machine Operator Name Role Phone Quang Locke Unavailable [phone] Keith Craft MD Primary Care Provider [phone] Bri Rollins RN Unavailable Unavailable Silvio Schulte MD Unavailable [phone] Bri Rollins RN Unavailable Unavailable Werner Swift MD Unavailable Liz Capellan DO Primary Care Provider Reason for Visit * Reason Comments Medication Refill Encounter Details Date Type Department Care Team (Late st Contact Info) Description 09/22/2020 Refill [facility] [address] [place] [address] Keith Craft MD [address] [place] [address] Medication Refill Social History Tobacco Use Types [...] Telephone Encounter - Camila Mehta RN - 09/22/2020 1:51 PM CDT Refill too soon documented in this encounter Plan of Treatment Upcoming Encounters Date Type Department Care Team (Late st Contact Info) Description 07/13/2024 1:30 PM HELPER ELECTRICAL [facility] Visit [facility] - [place] [address] [place] [address] Liz Capellan L, DO [address] [address] 07/20/2024 2:15 PM HELPER ELECTRICAL Office Visit [facility] Endocr[facility] - [place] [address] [place] [address] Ana Vivar, MACHINE MOVER, WHISTLE PUNK [address] [address] Yasmin Restrepo MD #[address] [address] 07/31/2024 1:00 PM HELPER ELECTRICAL [facility] [address] [place] [address] Werner Swift MD [address] [place] [address] Discharge Disposition: Discharged to home or Selfcare 08/03/2024 1:15 PM CDT [facility] [place] [address] [place] [address] Werner Swift MD #[address] [place] [address] 09/02/2024 2:00 PM CDT Appointment [facility] 1 [place] [address] Werner Swift MD [address] [place] [address] Discharge Disposition: Discharged to home or Selfcare 10/09/2024 2:30 PM CDT Office Visit [facility] - Family Medicine - [place] [address] [place] [address] Liz Capellan, DO [address] [address] documented as of this encounter Visit Diagnoses Diagnosis Anxiety and depression Dysthymic disorder documented in this encounter Additional Health Concerns Infection Onset Date Last Indicated Resolved Time COVID - 19 01/25/2021 01/25/2021 01/31/2021 8:10 AM CDT Respiratory Rule Out - RPA 01/30/2021 01/30/2021 0 02/01/2021 12:45 AM CDT COVID - 19 07/23/2021 07/23/2021 07/24/2021 6:31 AM HELPER ELECTRICAL COVID - 19 10/19/2021 10/19/2021 10/20/2021 7:45 AM CDT Respiratory Rule Out - RPA 10/19/2021 10/19/2021 0 10/20/2021 2:10 PM CDT Stenotrophomonas maltophilia Comment:Must have a follow up respiratory sample to remove isolation flag. 10/20/2021 10/20/2021 COVID - 19 04/20/2022 04/20/2022 04/30/2022 12:1 8 AM HELPER ELECTRICAL COVID - 19 07/18/2022 07/18/2022 07/28/2022 12:1 6 AM HELPER ELECTRICAL COVID - 19 08/21/2022 08/21/2022 08/22/2022 8:31 AM CDT Respiratory Rule Out - RPA 08/21/2022 08/21/2022 0 08/22/2022 3:21 PM CDT COVID - 19 04/18/2023 04/18/2023 04/28/2023 12:1 6 AM HELPER ELECTRICAL COVID - 19 07/13/2023 07/13/2023 07/23/2023 12:1 6 AM HELPER ELECTRICAL Respiratory Rule Out - RPA 03/17/2024 03/17/2024 1 3:36 PM CDT COVID - 19 04/27/2024 04/27/2024 04/27/2024 2:19 PM HELPER ELECTRICAL Assessment Noted Time PHQ-9 Depression Total Score: 2 06/07/19 2:34 PM HELPER ELECTRICAL documented as of this encounter Care Teams Skin Peeling Machine Operator Relationship Specialty Start Date End Date Keith Craft MD PCP - General Family Medicine 01/14/19 12/26/23 Liz Capellan DO [address] [address] PCP - General Family Medicine 12/27/23 Quang Locke DO Gastroenterology 01/18/16 Bri Rollins RN [place] Rock Crusher 03/07/21 05/22/23 [place] [address] [address] 05/25/21 Bri Rollins RN [place] Nurse Rock Crusher 03/07/21 05/23/23 Werner Swift MD [address] [place] [address] Consulting Physician Pulmonary Disease 01/30/22 documented as of this encounter
--- OUTSIDE RECORDS SUMMARY | 2024-07-10 13:41 | XMS_ITS | Encounter Summary ---
Author Organization [facility] Address [address] [place] [address] Phone Care Team Providers Care Tunnel Kiln Firer Name Role Phone Quang Locke Unavailable [phone] Keith Craft MD Primary Care Provider [phone] Bri Rollins RN Unavailable Unavailable Silvio Schulte MD Unavailable [phone] Bri Rollins RN Unavailable Unavailable Werner Swift MD Unavailable Liz Capellan DO Primary Care Provider [phone] Reason for Visit * Reason Comments Medication Refill Encounter Details Date Type Department Care Team (Late st Contact Info) Description 09/29/2020 Refill [facility] #2 [place] [address] Keith Craft MD [address] [place] [address] Medication Refill Social History Tobacco Use Types [...] Telephone Encounter - Gloria Cornejo RN - 09/30/2020 1:38 PM CDT [place] PDMP 09/15/20 Medication failed the protocol, provider to review and approve the medication order if appropriate. Requested Prescriptions Pending Prescriptions Disp Refills diazePAM (VALIUM) 10 MG Tablet [Pharmacy Med Name: DIAZEPAM 10 MG TABLET] 30 Tablet 0 Sig: TAKE 1 TABLET BY MOUTH EVERY DAY [facility] Not Delegated - Psychiatry: Anxiolytics/Hypnotics Failed - 09/30/2020 1:38 PM Failed - This refill cannot be delegated Passed - Valid encounter within last 6 months Past Office Visits Recent Outpatient Visits 3 months ago Mixed hyperlipidemia [facility] Keith Lemus MD 5 months ago Pneumonia of right upper lobe due to infectious organism [facility] Keith Lemus MD 8 months ago Acute non-recurrent maxillary sinusitis [facility] Keith Lemus MD 11 months ago Chronic prescription opiate use [facility] Keith Lmeus MD 1 year ago Coronary artery disease involving [place] coronary artery of [place] heart without angina pectoris [facility] Keith Lemus MD Upcoming Appointments Future Appointments In 4 days Keith Craft MD [facility] WEBSITE DESIGNER - Recent and Past Visits Recent Visits Date Type Provider Dept 06/07/20 Office Visit Keith Craft MD [facility] 04/25/20 Office Visit Keith Craft MD [facility] 02/02/20 Office Visit Keith Craft MD [...] st Contact Info) Description 07/13/2024 1:30 PM PRECIPITATOR OPERATOR Office Visit [facility] - Family Medicine - [place] [address] [place] [address] Liz Capellan, DO [address] [address] 07/20/2024 2:15 PM PRECIPITATOR OPERATOR Office Visit [facility] - Endocrinology - [place] [address] [place] [address] Ana Vivar, TOGGLE PRESS FOLDER AND FEEDER, LINE MECHANIC [address] [address] Yasmin Restrepo MD #[address] [address] 07/31/2024 1:00 PM PRECIPITATOR OPERATOR [facility] [address] [place] [address] Werner Swift MD #[address] [place] [address] Discharge Disposition: Discharged to home or Selfcare 08/03/2024 1:15 PM CDT [facility] #2 [place] [address] Werner Swift MD [address] [place] [address] 09/02/2024 2:00 PM CDT [facility] [address] [place] [address] Werner Swift MD [address] [place] [address] Discharge Disposition: Discharged to home or Selfcare 10/09/2024 2:30 PM CDT Office Visit [facility] - Family Medicine [facility] #2 [place] [address] Liz Capellan, DO [address] [address] documented as of this encounter Visit Diagnoses Diagnosis Anxiety and depression Dysthymic disorder documented in this encounter Additional Health Concerns Infection Onset Date Last Indicated Resolved Time COVID - 19 01/25/2021 01/25/2021 01/31/2021 8:10 AM CDT Respiratory Rule Out - RPA 01/30/2021 01/30/2021 0 02/01/2021 12:45 AM CDT COVID - 19 07/23/2021 07/23/2021 07/24/2021 6:31 AM PRECIPITATOR OPERATOR COVID - 19 10/19/2021 10/19/2021 10/20/2021 7:45 AM CDT Respiratory Rule Out - RPA 10/19/2021 10/19/2021 0 10/20/2021 2:10 PM CDT Stenotrophomonas maltophilia Comment:Must have a follow up respiratory sample to remove isolation flag. 10/20/2021 10/20/2021 COVID - 19 04/20/2022 04/20/2022 04/30/2022 12:1 8 AM PRECIPITATOR OPERATOR COVID - 19 07/18/2022 07/18/2022 07/28/2022 12:1 6 AM PRECIPITATOR OPERATOR COVID - 19 08/21/2022 08/21/2022 08/22/2022 8:31 AM CDT Respiratory Rule Out - RPA 08/21/2022 08/21/2022 0 08/22/2022 3:21 PM CDT COVID - 19 04/18/2023 04/18/2023 04/28/2023 12:1 6 AM PRECIPITATOR OPERATOR COVID - 19 07/13/2023 07/13/2023 07/23/2023 12:1 6 AM PRECIPITATOR OPERATOR Respiratory Rule Out - RPA 03/17/2024 03/17/2024 1 3:36 PM CDT COVID - 19 04/27/2024 04/27/2024 04/27/2024 2:19 PM PRECIPITATOR OPERATOR Assessment Noted Time PHQ-9 Depression Total Score: 2 06/07/19 21 2:34 PM PRECIPITATOR OPERATOR documented as of this encounter Care Teams Tunnel Kiln Firer Relationship Specialty Start Date End Date Keith Craft MD PCP - General Family Medicine 01/14/19 12/26/23 Liz Capellan DO [address] [address] PCP - General Family Medicine 12/27/23 Quang Locke DO Gastroenterology 01/18/16 Bri Rollins RN [place] Childcare Center Director 03/07/21 05/22/23 [place] [address] [address] 05/25/21 Bri Rollins RN [place] Nurse Childcare Center Director 03/07/21 05/23/23 Werner Swift MD #[address] [place] [address] Consulting Physician Pulmonary Disease 01/30/22 documented as of this encounter
--- OUTSIDE RECORDS SUMMARY | 2024-07-10 13:41 | XMS_ITS | Encounter Summary ---
Author Organization [facility] Address [address] [place] [address] Phone Care Team Providers Care Painter Ordnance Name Role Phone Quang Locke Unavailable [phone] Keith Craft MD Primary Care Provider [phone] Bri Rollins RN Unavailable Unavailable Silvio Schulte MD Unavailable [phone] Bri Rollins RN Unavailable Unavailable Werner Swift MD Unavailable Liz Capellan DO Primary Care Provider [phone] Reason for Visit * Reason Comments Medication Refill Encounter Details Date Type Department Care Team (Late st Contact Info) Description 06/04/2022 Refill [facility] - [facility] [address] [place] [address] Keith Craft MD [address] [place] [address] Medication Refill Social History Tobacco Use Types [...] suspected to have Coronavirus/COVID-19? No / Unsure 06/06/2022 2:21 PM PI/SENIOR RESEARCH ASSOCIATE documented as of this encounter Miscellaneous Notes * Telephone Encounter - Georgia Roblero RN - 06/04/2022 11:05 AM PI/SENIOR RESEARCH ASSOCIATE Medication failed the protocol, provider to review and approve the medication order if appropriate. Requested Prescriptions Pending Prescriptions Disp Refills Trulicity 0.75 MG/0.5ML Solution Pen-injector [Pharmacy Med Name: TRULICITY 0.75/0.5 SOLN PEN-INJ] 1 Sig: INJECT 0.5 ML(0.75MG) WEEKLY ON SATURDAY DIRECTED BY PHYSICIAN GLP-1 Agonists Protocol Passed - 06/04/2022 10:20 AM Passed - Lipid panel result on file in past 12 months LDL Date Value Ref Range Status 05/07/2022 18 0 - 130 mg/dL Final HDL CHOLESTEROL Date Value Ref Range Status 03/02/2022 66.2 >40 mg/dL Final CHOLESTEROL Date Value Ref Range Status 03/02/2022 124 <=200 mg/dL Final TRIGLYCERIDES Date Value Ref Range Status 03/02/2022 79 <150 mg/dL Final VLDL Date Value Ref Range Status 03/02/2022 16 5 - 55 mg/dL Final CHOL/HDL RATIO Date Value Ref Range Status 03/02/2022 1.9 0.0 - 4.4 Final NON-HDL CHOLESTEROL Date Value Ref Range Status 03/02/2022 57.8 <130 mg/dL Final Passed - Visit with relevant provider in past 6 months or upcoming 90 days Recent Visits Date Type Provider Dept 03/02/22 Procedure Visit [facility] 03/02/22 Office Visit Keith Craft MD [facility] Showing recent visits within past 182 days and meeting all other requirements Future Appointments Date Type Provider Dept 06/07/22 Appointment Keith Craft MD [facility] Showing future appointments within next 90 days and meeting all other requirements Passed - HgA1C result on record in past 6 months HGB-A1C Date Value Ref Range Status 03/02/2022 6.7 (A) 4 - 6 Final Passed - GFR on record in past 6 months GFR, EST. NONAFRICAN Date Value Ref Range Status 03/02/2022 52 (L) >=60 Final ergocalciferol (VITAMIN D) 32641 UNIT Capsule [Pharmacy Med Name: VITAMIN D 09161AYS CAPSULE] 12 Capsule 0 Sig: TAKE ONE CAPSULE BY MOUTH ONE TIME WEEKLY Vitamin Supplements (Adult) Protocol Failed - 06/04/2022 10:20 AM Failed - Vitamin D less than 1.25mg Passed - Visit with relevant provider in past 12 months or upcoming 90 days Recent Visits Date Type Provider Dept 03/02/22 Procedure Visit [facility] 03/02/22 Office Visit Keith Craft MD [facility] 11/03/21 Office Visit Keith Craft MD [facility] 10/19/21 Office Visit Keith Craft MD [facility] 10/05/21 Office Visit Keith Craft MD [facility] 09/08/21 Office Visit Brie Denis PAC [facility] 08/14/21 Office Visit Keith Craft MD [facility] 07/31/21 Office Visit Keith Craft MD [facility] Showing recent visits within past 365 days and meeting all other requirements Future Appointments Date Type Provider Dept 06/07/22 Appointment Keith Craft MD [facility] Showing future appointments within next 90 days and meeting all other requirements amitriptyline (ELAVIL) 25 MG Tablet [Pharmacy Med Name: AMITRIPTYLINE HCL 25MG TABLET] 90 Tablet 0 Sig: TAKE ONE (1) TABLET BY MOUTH NIGHTLY. Not Delegated - Tricyclic Agents Protocol Failed - 06/04/2022 10:20 AM Failed - This refill cannot be delegated Passed - Visit with relevant provider in past 12 months or upcoming 90 days Recent Visits Date Type Provider Dept 03/02/22 Procedure Visit [facility] [place] 03/02/22 Office Visit Keith Craft MD [facility] 11/03/21 Office Visit Keith Craft, MD [facility] 10/19/21 Office Visit Keith Craft, [facility] 10/05/21 Office Visit Keith Craft MD [facility] 09/08/21 Office Visit Brie Denis, NICOLE [facility] 08/14/21 Office Visit Keith Craft, MD [facility] 07/31/21 Office Visit Keith Craft MD [facility] Showing recent visits within past 365 days and meeting all other requirements Future Appointments Date Type Provider Dept 06/07/22 Appointment Keith Craft MD [facility] Showing future appointments within next 90 days and meeting all other requirements Januvia 100 MG Tablet [Pharmacy Med Name: JANUVIA 100MG TABLET] 90 Tablet 3 Sig: TAKE ONE (1) TABLET BY MOUTH DAILY. DPP-4 Inhibitors Protocol Passed - 06/04/2022 10:20 AM Passed - Visit with relevant provider in past 6 months or upcoming 90 days Recent Visits Date Type Provider Dept 03/02/22 Procedure Visit [facility] 03/02/22 Office Visit Keith Craft MD [facility] Showing recent visits within past 182 days and meeting all other requirements Future Appointments Date Type Provider Dept 06/07/22 Appointment Keith Craft MD [facility] Showing future appointments within next 90 days and meeting all other requirements Passed - HgA1C on record in the past 6 months HGB-A1C Date Value Ref Range Status 03/02/2022 6.7 (A) 4 - 6 Final Passed - GFR on record in past 6 months GFR, EST. NONAFRICAN Date Value Ref Range Status 03/02/2022 52 (L) >=60 Final Dexilant 60 MG CAPSULE DELAYED RELEASE [Pharmacy Med Name: DEXILANT 60MG DR CAPSULE DR] 90 Capsule 0 Sig: TAKE ONE (1) CAPSULE BY MOUTH DAILY Proton Pump Inhibitors Protocol Passed - 06/04/2022 10:20 AM Passed - Visit with relevant provider in past 12 months or upcoming 90 days Recent Visits Date Type Provider Dept 03/02/22 Procedure Visit [facility] 03/02/22 Office Visit Keith Craft MD [facility] 11/03/21 Office Visit Keith Craft MD [facility] 10/19/21 Office Visit Keith Craft MD [facility] 10/05/21 Office Visit Keith Craft MD [facility] 09/08/21 Office Visit Brie Denis, [facility] 08/14/21 Office Visit Keith Craft MD [facility] 07/31/21 Office Visit Keith Craft MD [facility] Showing recent visits within past 365 days and meeting all other requirements Future Appointments Date Type Provider Dept 06/07/22 Appointment Keith Craft MD [facility] Showing future appointments within next 90 days and meeting all other requirements gabapentin (NEURONTIN) 800 MG Tablet [Pharmacy Med Name: GABAPENTIN 800MG TABLET] 90 Tablet 3 Sig: TAKE ONE (1) TABLET BY MOUTH THREE (3) TIMES DAILY. Not Delegated - Anticonvulsants Excluding Benzodiazepines Protocol Failed - 06/04/2022 10:20 AM Failed - This refill cannot be delegated Passed - Visit with relevant provider in past 12 months or upcoming 90 days Recent Visits Date Type Provider Dept 03/02/22 Procedure Visit [facility] 03/02/22 Office Visit Keith Craft MD [facility] 11/03/21 Office Visit Keith Craft MD [facility] 10/19/21 Office Visit Keith Craft MD [facility] 10/05/21 Office Visit Keith Craft MD [facility] 09/08/21 Office Visit Brie Denis, NICOLE [facility] 08/14/21 Office Visit Keith Craft MD [facility] 07/31/21 Office Visit Keith Craft MD [facility] Showing recent visits within past 365 days and meeting all other requirements Future Appointments Date Type Provider Dept 06/07/22 Appointment Keith Craft MD [facility] Showing future appointments within next 90 days and meeting all other requirements /SENIOR RESEARCH ASSOCIATE documented in this encounter Plan of Treatment Upcoming Encounters Date Type Department Care Team (Late st Contact Info) Description 07/13/2024 1:30 PM PI/SENIOR RESEARCH ASSOCIATE Office Visit [facility] - [place] [address] [place] [address] Liz Capellan, DO [address] [address] 07/20/2024 2:15 PM PI/SENIOR RESEARCH ASSOCIATE [facility] [place] [address] [place] [phone] Ana Vivar, ENDOSCOPY SPECIALTY TECHNICIAN, KITCHEN STEWARD [address] [address] Yasmin Restrepo MD #[address] [address] 07/31/2024 1:00 PM PI/SENIOR RESEARCH ASSOCIATE [facility] [address] [place] [address] Werner Swift MD [address] [place] [address] Discharge Disposition: Discharged to home or Selfcare 08/03/2024 1:15 PM CDT Office Visit [facility] - Pulmonology & Sleep Medicine [facility] [address] [place] [address] Werner Swift MD [address] [place] [address] 09/02/2024 2:00 PM CDT Appointment [facility] [address] [place] [address] Werner Swift MD [address] [place] [address] Discharge Disposition: Discharged to home or Selfcare 10/09/2024 2:30 PM CDT Office Visit [facility] Family Medicine [facility] [address] [place] [address] Liz Capellan, DO [address] [address] documented as of this encounter Goals Goal [...] Zones/Action plan education. I will notify my Balancing Machine Set Up Worker if my symptoms fall in the y ellow zone . I will consider receiving an influenza and pneumonia vaccination, if applicable. -I will call the office if I experience any symptoms listed above to discuss at home management options. documented as of this encounter Visit Diagnoses Diagnosis Type 2 diabetes mellitus with diabetic neuropathy, with long-term current use of insulin (HCC) Insomnia, unspecified type Type 2 diabetes mellitus with diabetic neuropathy, unspecified ([facility]) documented in this encounter Additional Health Concerns Infection Onset Date Last Indicated Resolved Time Stenotrophomonas maltophilia Comment:Must have a follow up respiratory sample to remove isolation flag. 10/20/2021 10/20/2021 COVID - 19 07/18/2022 07/18/2022 07/28/2022 12:1 6 AM PI/SENIOR RESEARCH ASSOCIATE COVID - 19 08/21/2022 08/21/2022 08/22/2022 8:31 AM CDT Respiratory Rule Out - RPA 08/21/2022 08/21/2022 0 08/22/2022 3:21 PM CDT COVID - 19 04/18/2023 04/18/2023 04/28/2023 12:1 6 AM PI/SENIOR RESEARCH ASSOCIATE COVID - 19 07/13/2023 07/13/2023 07/23/2023 12:1 6 AM PI/SENIOR RESEARCH ASSOCIATE Respiratory Rule Out - RPA 03/17/2024 03/17/2024 1 3:36 PM CDT COVID - 19 04/27/2024 04/27/2024 04/27/2024 2:19 PM PI/SENIOR RESEARCH ASSOCIATE Assessment Noted Time PHQ-9 Depression Total Score: 1 03/07/20 21 10:29 AM CDT documented as of this encounter Care Teams Painter Ordnance Relationship Specialty Start Date End Date Keith Craft MD PCP - General Family Medicine 01/14/19 12/26/23 Liz Capellan DO [address] [facility] [address] [place] [address] PCP - General Family Medicine 12/27/23 Quang Locke DO Gastroenterology 01/18/16 Bri Rollins RN [place] Balancing Machine Set Up Worker 03/07/21 05/22/23 [place] [id number] [address] 05/25/21 Bri Rollins, KATEY [place] Nurse Balancing Machine Set Up Worker 03/07/21 05/23/23 Werner Swift MD [address] [place] [address] Consulting Physician Pulmonary Disease 01/30/22 documented as of this encounter
--- OUTSIDE RECORDS SUMMARY | 2024-07-10 13:41 | XMS_ITS | Encounter Summary ---
Author Organization [facility] Address [address] [place] [address] Phone Care Team Providers Care Packaging Machine Operator Name Role Phone Quang Locke Unavailable [phone] Keith Craft MD Primary Care Provider [phone] Bri Rollins RN Unavailable Unavailable Silvio Schulte MD Unavailable [phone] Bri Rollins RN Unavailable Unavailable Werner Swift MD Unavailable Liz Capellan DO Primary Care Provider [phone] Reason for Visit * Reason Comments Medication Refill Encounter Details Date Type Department Care Team (Late st Contact Info) Description 08/30/2020 Refill [facility] [address] [place] [address] Keith Craft MD [address] [place] [address] Medication Refill Social History Tobacco Use Types [...] Telephone Encounter - Gloria Cornejo RN - 08/31/2020 2:03 PM CDT [place] 08/02/20 Medication failed the protocol, provider to review and approve the medication order if appropriate. Requested Prescriptions Pending Prescriptions Disp Refills diazePAM (VALIUM) 10 MG Tablet [Pharmacy Med Name: DIAZEPAM 10 MG TABLET] 30 Tablet 0 Sig: TAKE 1 TABLET BY MOUTH EVERY DAY Not Delegated - Psychiatry: Anxiolytics/Hypnotics Failed - 08/31/2020 2:03 PM Failed - This refill cannot be delegated Passed - Valid encounter within last 6 months Past Office Visits Recent Outpatient Visits 2 months ago Mixed hyperlipidemia [facility] Keith Lemus MD 4 months ago Pneumonia of right upper lobe due to infectious organism [facility] Keith Lemsu MD 7 months ago Acute non-recurrent maxillary sinusitis [facility] Keith Lemus MD 10 months ago Chronic prescription opiate use [facility] Keith Lemus MD 1 year ago 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 [facility] Keith Lemus MD Upcoming Appointments Future Appointments In 1 month Keith Craft MD [facility] [employer] SALES REPRESENTATIVE - Recent and Past Visits Recent Visits Date Type Provider Dept 06/07/20 Office Visit Keith Craft MD [facility] 04/25/20 Office Visit Keith Craft MD [facility] 02/02/20 Office Visit Keith Craft MD [facility] 11/02/19 Office Visit Keith Craft MD [facility] 07/27/19 Office Visit Keith Craft MD [facility] 06/10/19 Office Visit Cir[facility] YarelyNICOLE [facility] Showing recent visits within past 460 days with a meds authorizing provider and meeting all other requirements Future Appointments Date Type Provider Dept 10/04/20 Appointment Keith Carft MD [facility] Showing future appointments within next 90 days with a meds authorizing provider and meeting all other requirements documented in this encounter Plan of Treatment Upcoming Encounters Date Type Department Care Team (Late st Contact Info) Description 07/13/2024 1:30 PM ICT CUSTOMER SUPPORT OFFICER Office Visit [facility] Medical [facility] - Family Medicine - [place] [address]2 [place] [address] Liz Capellan, DO [address] [address] 07/20/2024 2:15 PM ICT CUSTOMER SUPPORT OFFICER Office Visit [facility] - Endocrinology - [place] [address] [facility] [place] [address] Ana Vivar, NITROCELLULOSE MAKER, TAP AND DIE MAKER TECHNICIAN [address] [address] Yasmin Restrepo MD [address] [place] [address] 07/31/2024 1:00 PM ICT CUSTOMER SUPPORT OFFICER [facility] [address] [place] [address] Werner Swift MD [address] [place] [address] Discharge Disposition: Discharged to home or Selfcare 08/03/2024 1:15 PM CDT [facility] #2 [place] [address] Werner Swift MD [address] [place] [address] 09/02/2024 2:00 PM CDT [facility] [address] [place] [address] Werner Swift MD [address] [place] [address] Discharge Disposition: Discharged to home or Selfcare 10/09/2024 2:30 PM CDT Office Visit [facility] - Family Medicine - [place] [address] [place] [address] Liz Capellan, DO [address] [address] documented as of this encounter Visit Diagnoses Diagnosis Anxiety and depression Dysthymic disorder documented in this encounter Additional Health Concerns Infection Onset Date Last Indicated Resolved Time COVID - 19 01/25/2021 01/25/2021 01/31/2021 8:10 AM CDT Respiratory Rule Out - RPA 01/30/2021 01/30/2021 0 02/01/2021 12:45 AM CDT COVID - 19 07/23/2021 07/23/2021 07/24/2021 6:31 AM ICT CUSTOMER SUPPORT OFFICER COVID - 19 10/19/2021 10/19/2021 10/20/2021 7:45 AM CDT Respiratory Rule Out - RPA 10/19/2021 10/19/2021 0 10/20/2021 2:10 PM CDT Stenotrophomonas maltophilia Comment:Must have a follow up respiratory sample to remove isolation flag. 10/20/2021 10/20/2021 COVID - 19 04/20/2022 04/20/2022 04/30/2022 12:1 8 AM ICT CUSTOMER SUPPORT OFFICER COVID - 19 07/18/2022 07/18/2022 07/28/2022 12:1 6 AM ICT CUSTOMER SUPPORT OFFICER COVID - 19 08/21/2022 08/21/2022 08/22/2022 8:31 AM CDT Respiratory Rule Out - RPA 08/21/2022 08/21/2022 0 08/22/2022 3:21 PM CDT COVID - 19 04/18/2023 04/18/2023 04/28/2023 12:1 6 AM ICT CUSTOMER SUPPORT OFFICER COVID - 19 07/13/2023 07/13/2023 07/23/2023 12:1 6 AM ICT CUSTOMER SUPPORT OFFICER Respiratory Rule Out - RPA 03/17/2024 03/17/2024 1 3:36 PM CDT COVID - 19 04/27/2024 04/27/2024 04/27/2024 2:19 PM ICT CUSTOMER SUPPORT OFFICER Assessment Noted Time PHQ-9 Depression Total Score: 2 06/07/19 21 2:34 PM ICT CUSTOMER SUPPORT OFFICER documented as of this encounter Care Teams Packaging Machine Operator Relationship Specialty Start Date End Date Keith Craft MD PCP - General Family Medicine 01/14/19 12/26/23 Liz Capellan DO [address] [address] PCP - General Family Medicine 12/27/23 Quang Locke DO Gastroenterology 01/18/16 Bri Rollins RN [place] Necktie Centralizing Machine Operator 03/07/21 05/22/23 [place] [address] [place] [address] [address] 05/25/21 Bri Rollins RN [place] Nurse Necktie Centralizing Machine Operator 03/07/21 05/23/23 Werner Swift MD #[address] [place] [address] Consulting Physician Pulmonary Disease 01/30/22 documented as of this encounter
--- OUTSIDE RECORDS SUMMARY | 2024-07-10 13:41 | XMS_ITS | Encounter Summary ---
Author Organization [facility] Address [address] [place] [address] Phone Care Team Providers Care Steam Fitter Supervisor Name Role Phone Quang Locke Unavailable [phone] Keith Craft MD Primary Care Provider Bri Rollins RN Unavailable Unavailable Silvio Schulte MD Unavailable [phone] Bri Rollins RN Unavailable Unavailable Werner Swift MD Unavailable Liz Capellan DO Primary Care Provider [phone] Reason for Visit * Reason Comments Medication Refill Encounter Details Date Type Department Care Team (Late st Contact Info) Description 08/24/2020 Refill [facility] Family Medicine [facility] #2 [place] [address] Keith Craft MD #1 [place] [address] Medication Refill Social History Tobacco Use Types [...] have Coronavirus / COVID-19? No / Unsure 07/30/2020 3:25 PM KILN DOOR BUILDER documented as of this encounter Miscellaneous Notes * Telephone Encounter - Gloria Cornejo RN - 08/25/2020 9:30 AM CDT Medication failed the protocol, provider to review and approve the medication order if appropriate. Requested Prescriptions Pending Prescriptions Disp Refills Movantik 25 MG Tablet [Pharmacy Med Name: MOVANTIK 25 MG TABLET] 90 Tablet 2 Sig: TAKE 1 TABLET BY MOUTH EVERY DAY Off-Protocol Failed - 08/24/2020 11:05 AM Failed - Medication not assigned to a protocol, review manually. Passed - Valid encounter within last 12 months Past Office Visits Recent Outpatient Visits 2 months ago Mixed hyperlipidemia [facility] Keith Lemus MD 4 months ago Pneumonia of right upper lobe due to infectious organism [facility] Keith Lemus MD 6 months ago Acute non-recurrent maxillary sinusitis [facility] Keith Lemus MD 9 months ago Chronic prescription opiate use [facility] Keith Lemus MD 1 year ago Coronary artery disease involving [place] coronary artery of [place] heart without angina pectoris [facility] Keith Laughlin MD Upcoming Appointments Future Appointments In 1 month Keith Craft MD [facility] YULIA Mckeon OFFICE MACHINE SERVICER APPRENTICE - Recent and Past Visits Recent Visits Date Type Provider Dept 06/07/20 Office Visit Keith Craft MD [facility] 04/25/20 Office Visit Keith Craft MD [facility] 02/02/20 Office Visit Keith Craft MD [facility] 11/02/19 Office Visit Keith Craft MD [facility] 07/27/19 Office Visit Keith Craft MD [facility] 06/10/19 [facility] Showing recent visits within past 460 [...] st Contact Info) Description 07/13/2024 1:30 PM KILN DOOR BUILDER Office Visit [facility] - Family Medicine [facility] #2 [place] [address] Liz Capellan, DO [address] [address] 07/20/2024 2:15 PM KILN DOOR BUILDER Office Visit [facility] - Endocrinology - [place] #2 [place] [address] Ana Vivar, SLITTING AND SHIPPING SUPERVISOR, VETERANS REHABILITATION COUNSELOR 2 [facility] [address] [place] [address] Yasmin Restrepo MD #[address] [place] [address] 07/31/2024 1:00 PM KILN DOOR BUILDER [facility] [address] [place] [address] Werner Swift MD #2 [place] [address] Discharge Disposition: Discharged to home or Selfcare 08/03/2024 1:15 PM CDT [facility] #2 [place] [address] Werner Swift MD #2 [place] [address] 09/02/2024 2:00 PM CDT Appointment [facility] Respiratory Therapy 1 [place] [address] Werner Swift MD #2 [place] [address] Discharge Disposition: Discharged to home or Selfcare 10/09/2024 2:30 PM CDT Office Visit [facility] Family Medicine [facility] #2 [place] [address] Liz Capellan, DO [address] [address] documented as of this encounter Visit Diagnoses Not on filedocumented in this encounter Additional Health Concerns Infection Onset Date Last Indicated Resolved Time COVID - 19 01/25/2021 01/25/2021 01/31/2021 8:10 AM CDT Respiratory Rule Out - RPA 01/30/2021 01/30/2021 0 02/01/2021 12:45 AM CDT COVID - 19 07/23/2021 07/23/2021 07/24/2021 6:31 AM KILN DOOR BUILDER COVID - 19 10/19/2021 10/19/2021 10/20/2021 7:45 AM CDT Respiratory Rule Out - RPA 10/19/2021 10/19/2021 0 10/20/2021 2:10 PM CDT Stenotrophomonas maltophilia Comment:Must have a follow up respiratory sample to remove isolation flag. 10/20/2021 10/20/2021 COVID - 19 04/20/2022 04/20/2022 04/30/2022 12:1 8 AM KILN DOOR BUILDER COVID - 19 07/18/2022 07/18/2022 07/28/2022 12:1 6 AM KILN DOOR BUILDER COVID - 19 08/21/2022 08/21/2022 08/22/2022 8:31 AM CDT Respiratory Rule Out - RPA 08/21/2022 08/21/2022 0 08/22/2022 3:21 PM CDT COVID - 19 04/18/2023 04/18/2023 04/28/2023 12:1 6 AM KILN DOOR BUILDER COVID - 19 07/13/2023 07/13/2023 07/23/2023 12:1 6 AM KILN DOOR BUILDER Respiratory Rule Out - RPA 03/17/2024 03/17/2024 1 3:36 PM CDT COVID - 19 04/27/2024 04/27/2024 04/27/2024 2:19 PM KILN DOOR BUILDER Assessment Noted Time PHQ-9 Depression Total Score: 2 06/07/19 21 2:34 PM KILN DOOR BUILDER documented as of this encounter Care Teams Steam Fitter Supervisor Relationship Specialty Start Date End Date Keith Craft MD PCP - General Family Medicine 01/14/19 12/26/23 Liz Capellan DO 2 [place] [address] PCP - General Family Medicine 12/27/23 Quang Locke DO Gastroenterology 01/18/16 Rollins, Bri M, RN [place] Bar And Filler Assembler 03/07/21 05/22/23 [place] [id number] [address] 05/25/21 Bri Rollins RN [place] Nurse Bar And Filler Assembler 03/07/21 05/23/23 Werner Swift MD #2 [place] [address] Consulting Physician Pulmonary Disease 01/30/22 documented as of this encounter
--- OUTSIDE RECORDS SUMMARY | 2024-07-10 13:41 | XMS_ITS | Encounter Summary ---
Author Organization [facility] Address [address] [place] [address] Phone Care Team Providers Care It Teacher Name Role Phone Quang Locke DO Unavailable [phone] Keith Craft MD Primary Care Provider [phone] Bri Rollins RN Unavailable Unavailable Silvio Schulte MD Unavailable [phone] Bri Rollins RN Unavailable Unavailable Werner Swift MD Unavailable Liz Capellan DO Primary Care Provider [phone] Reason for Visit * Reason Onset Date Comments Medication Refill 08/24/2020 Encounter Details Date Type Department Care Team (Late st Contact Info) Description 08/24/2020 Refill [facility] Family [facility] [address] [place] [address] Keith Craft MD #1 [place] [address] Medication Refill Social History Tobacco Use Types [...] COVID-19? No / Unsure 07/30/2020 3:25 PM DISPENSING LEAD documented as of this encounter Miscellaneous Notes * Telephone Encounter - Keerthi Kline RN - 08/24/2020 8:49 AM CDT Medication failed the protocol, provider to review and approve the medication order if appropriate. Requested Prescriptions Pending Prescriptions Disp Refills UltiCare Mini Pen [place] 31G X 6 MM Misc 300 Each 3 Sig: Use with insulins tid DX E11.40 There is no refill protocol information for this order * Telephone Encounter - Lori Quinn - 08/24/2020 8:37 AM CDT Images from the original note were not included. Last refill states 01/06/2020 Received a faxed Rx request from pharmacy. Reordered refill medication(s) requested and pended for nurse and physician/MARINO review. Refill encounter routed to nurse Surescript's pool for processing. Prescriber action required. documented in this encounter Plan of Treatment Upcoming Encounters Date Type Department Care Team (Late st Contact Info) Description 07/13/2024 1:30 PM DISPENSING LEAD Office Visit [facility] - Family [facility] #2 [place] [address] Liz Capellan, DO 2 [facility] [address] [place] [address] 07/20/2024 2:15 PM DISPENSING LEAD Office Visit [facility] - Endocrinology [facility] #2 [place] [address] Ana Vivar, KITCHEN FOOD ASSEMBLER, SALVAGE CUTTER 2 [facility] [address] [place] [address] Yasmin Restrepo MD #[address] [phone] 07/31/2024 1:00 PM DISPENSING LEAD [facility] [address] [place] [address] Werner Swift MD #2 [place] [address] Discharge Disposition: Discharged to home or Selfcare 08/03/2024 1:15 PM CDT Office Visit [facility] - Pulmonology & Sleep Medicine [facility] #2 [place] [address] Werner Swift MD #2 [place] [address] 09/02/2024 2:00 PM CDT [facility] 1 [place] [address] Werner Swift MD #2 [place] [address] Discharge Disposition: Discharged to home or Selfcare 10/09/2024 2:30 PM CDT Office Visit [facility] - Family Medicine - [place] [address] [place] [address] Liz Capellan, DO [address] [facility] [facility] [place], [place]. [address] [place] [address] documented as of this encounter Visit Diagnoses [...] - 19 07/23/2021 07/23/2021 07/24/2021 6:31 AM DISPENSING LEAD COVID - 19 10/19/2021 10/19/2021 10/20/2021 7:45 AM CDT Respiratory Rule Out - RPA 10/19/2021 10/19/2021 0 10/20/2021 2:10 PM CDT Stenotrophomonas maltophilia Comment:Must have a follow up respiratory sample to remove isolation flag. 10/20/2021 10/20/2021 COVID - 19 04/20/2022 04/20/2022 04/30/2022 12:1 8 AM DISPENSING LEAD COVID - 19 07/18/2022 07/18/2022 07/28/2022 12:1 6 AM DISPENSING LEAD COVID - 19 08/21/2022 08/21/2022 08/22/2022 8:31 AM CDT Respiratory Rule Out - RPA 08/21/2022 08/21/2022 0 08/22/2022 3:21 PM CDT COVID - 19 04/18/2023 04/18/2023 04/28/2023 12:1 6 AM DISPENSING LEAD COVID - 19 07/13/2023 07/13/2023 07/23/2023 12:1 6 AM DISPENSING LEAD Respiratory Rule Out - RPA 03/17/2024 03/17/2024 1 3:36 PM CDT COVID - 19 04/27/2024 04/27/2024 04/27/2024 2:19 PM DISPENSING LEAD Assessment Noted Time PHQ-9 Depression Total Score: 2 06/07/19 2:34 PM DISPENSING LEAD documented as of this encounter Care Teams It Teacher Relationship Specialty Start Date End Date Keith Craft MD PCP - General Family Medicine 01/14/19 12/26/23 Liz Capellan DO [address] [address] PCP - General Family Medicine 12/27/23 Quang Locke DO Gastroenterology 01/18/16 Bri Rollins RN [place] Batcher Operator 03/07/21 05/22/23 [place] [address] [address] 05/25/21 Bri Rollins RN [place] Nurse Batcher Operator 03/07/21 05/23/23 Werner Swift MD #2 [place] [address] Consulting Physician Pulmonary Disease 01/30/22 documented as of this encounter
--- OUTSIDE RECORDS SUMMARY | 2024-07-10 13:41 | XMS_ITS | Encounter Summary ---
Author Organization [facility] Address [address] [place] [address] Phone Care Team Providers Care Marking Machine Operator Name Role Phone Quang Locke Unavailable [phone] Keith Craft MD Primary Care Provider [phone] Bri Rollins RN Unavailable Unavailable Silvio Schulte MD Unavailable [phone] Bri Rollins RN Unavailable Unavailable Werner Swift MD Unavailable Liz Capellan DO Primary Care Provider [phone] Reason for Visit * Reason Comments Medication Refill Encounter Details Date Type Department Care Team (Late st Contact Info) Description 05/15/2023 Refill [facility] - Family Medicine [facility] #2 [place] [address] Keith Craft MD #1 [place] [address] Medication Refill Social History Tobacco Use Types [...] Telephone Encounter - Gloria Cornejo RN - 05/16/2023 9:40 AM CST Medication failed the protocol, provider to review and approve the medication order if appropriate. Requested Prescriptions Pending Prescriptions Disp Refills ergocalciferol (VITAMIN D) 19648 UNIT Capsule [Pharmacy Med Name: VITAMIN D 80205SVK CAPSULE] 12 Capsule 0 Sig: TAKE ONE CAPSULE BY MOUTH ONE TIME WEEKLY Vitamin Supplements (Adult) Protocol Failed - 05/15/2023 3:44 PM Failed - Vitamin D dose not [...] [facility] 07/18/22 Office Visit Kerri Kauffman, DIRECTOR EXTERNAL COMMUNICATIONS, DRY YARD WORKER [facility] [place] 06/07/22 [facility] [...] (6 Month Refill Only) Protocol Passed - 05/15/2023 3:44 PM Passed - Visit with relevant provider in past 6 months or upcoming 90 days Recent Visits Date Type Provider Dept 05/02/23 Office Visit Keith Craft MD [facility] 04/12/23 Office Visit Keith Craft MD [facility] 12/10/22 Office Visit Keith Craft, MD [facility] Showing recent visits within past 182 [...] Reuptake Inhibitors for at least 6 months DULoxetine (CYMBALTA) [address] Particles [Pharmacy Med Name: DULOXETINE HYDROCHLORIDE 30MG CAPSULE DR PART] 90 Capsule 1 Sig: TAKE ONE (1) CAPSULE BY MOUTH DAILY. TO TAKE DAILY WITH THE 60 MG TAB. SNRI (6 Month Refill Only) Protocol Passed - 05/15/2023 3:44 PM Passed - Visit with relevant provider [...] Med Name: AMITRIPTYLINE HYDROCHLORIDE 25MG TABLET] 90Tablet 0 Sig: TAKE ONE (1) TABLET BY MOUTH NIGHTLY. Not Delegated - Tricyclic Agents Protocol Failed - 05/15/2023 3:44 PM Failed - This refill cannot be delegated Passed - Visit with relevant provider in past 12 months or upcoming 90 days Recent Visits Date Type Provider Dept 05/02/23 Office Visit Keith Craft MD [facility] 04/12/23 Office Visit Keith Craft, [facility] 12/10/22 Office Visit Keith Craft MD [facility] 09/10/22 Office Visit Keith Craft MD [facility] 07/18/22 Office Visit Kerri Kauffman, DIRECTOR EXTERNAL COMMUNICATIONS, DRY YARD WORKER [facility] Office Visit Keith Craft, [facility] Showing recent visits within past 365 days and meeting all other requirements Future Appointments No visits were found meeting these conditions. Showing future appointments within next 90 days and meeting all other requirements R MAKER documented in this encounter Plan of Treatment Upcoming Encounters Date Type Department Care Team (Late st Contact Info) Description 07/13/2024 1:30 PM FLYER MAKER [facility] Visit [facility] - Family Medicine - [place] #2 [place] [address] Liz Capellan L, DO [address] [address] 07/20/2024 2:15 PM FLYER MAKER Office Visit [facility] - Endocrinology - [place] #2 [place] [address] Ana Vivar, DIRECTOR EXTERNAL COMMUNICATIONS, DRY YARD WORKER 2 [facility] [address] [place] [address] Yasmin Restrepo MD #[address] [address] 07/31/2024 1:00 PM FLYER MAKER [facility] [address] [place] [address] Werner Swift MD #2 [place] [address] Discharge Disposition: Discharged to home or Selfcare 08/03/2024 1:15 PM CDT Office Visit [facility] - [facility] & Sleep Medicine [facility] #2 [place] [address] Werner Swift MD #2 [place] [address] 09/02/2024 2:00 PM CDT Appointment [facility] Respiratory Therapy [address] [place] [address] Werner Swift MD #2 [place] [address] Discharge Disposition: Discharged to home or Selfcare 10/09/2024 2:30 PM CDT Office Visit [facility] Family Medicine [facility] #2 [place] [address] Liz Capellan, DO [address] [address] documented as of this encounter Goals Goal [...] Zones/Action plan education. I will notify my Naval Science Teacher if my symptoms fall in the [...] 19 07/13/2023 07/13/2023 07/23/2023 12:1 6 AM FLYER MAKER Respiratory Rule Out - RPA 03/17/2024 03/17/2024 1 3:36 PM CDT COVID - 19 04/27/2024 04/27/2024 04/27/2024 2:19 PM FLYER MAKER Assessment Noted Time PHQ-9 Depression Total Score: 1 03/07/20 21 10:29 AM CDT documented as of this encounter Care Teams Marking Machine Operator Relationship Specialty Start Date End Date Keith Craft MD PCP - General Family Medicine 01/14/19 12/26/23 Liz Capellan DO 2 [address] [place] [address] [address] PCP - General Family Medicine 12/27/23 Quang Locke DO Gastroenterology 01/18/16 Bri Rollins RN [place] Naval Science Teacher 03/07/21 05/22/23 [place] [address] [address] 05/25/21 Bri Rollins RN [place] Nurse Naval Science Teacher 03/07/21 05/23/23 Werner Swift MD #2 [place] [address] Consulting Physician Pulmonary Disease 01/30/22 documented as of this encounter
[2024-07-10 13:42] VITALS: BP 119/71; PULSE 80; RESP 20; TEMP 36.2; O2SAT 96
--- OUTSIDE RECORDS SUMMARY | 2024-07-10 13:42 | XMS_ITS | Encounter Summary ---
Author Organization [facility] Address [address] [place] [address] Phone Care Team Providers Care General Internist And Physician Leader Name Role Phone Quang Locke Unavailable [phone] Keith Craft MD Primary Care Provider [phone] Bri Rollins RN Unavailable Unavailable Silvio Schulte MD Unavailable [phone] Bri Rollins RN Unavailable Unavailable Werner Swift MD Unavailable Liz Capellan DO Primary Care Provider [phone] Reason for Visit * Reason Comments Medication Refill Encounter Details Date Type Department Care Team (Late st Contact Info) Description 02/25/2021 Refill [facility] - Family Medicine [facility] #2 [place] [address] Brie Denis PAC #2 [place] [address] Medication Refill Social History Tobacco Use Types [...] encounter Miscellaneous Notes * Telephone Encounter - Lillian Steiner RN - 02/25/2021 1:51 PM CDT Medication failed the protocol, provider to review and approve the medication order if appropriate. Requested Prescriptions Pending Prescriptions Disp Refills busPIRone (BUSPAR) 5 MG Tablet [Pharmacy Med Name: BUSPIRONE HCL 5 MG TABLET] 90 Tablet 0 Sig: TAKE 1 TABLET BY MOUTH THREE TIMES A DAY Buspirone (6 Month Refill Only) Protocol Failed - 02/25/2021 8:30 AM Failed - Active on medication list Failed - Patient has established therapy with Buspirone for at least 6 months Passed - Visit with relevant provider in past 6 months or upcoming 90 days Recent Visits Date Type Provider Dept 02/07/21 Office Visit Keith Craft MD [facility] 02/03/21 Office Visit Brie Denis, [facility] 01/12/21 Office Visit Keith Craft MD [facility] 10/12/20 Office Visit Keith Craft MD [facility] 10/04/20 Office Visit Keith Craft MD [facility] Showing recent visits within past 182 days and meeting all other requirements Future Appointments Date Type Provider Dept 04/14/21 Appointment Keith Craft MD [facility] Showing future appointments within next 90 days and meeting all other requirements Passed - Has an encounter in the past 6 months with a depression or anxiety visit diagnosis documented in this encounter Plan of Treatment Upcoming Encounters Date Type Department Care Team (Late st Contact Info) Description 07/13/2024 1:30 PM WEB COORDINATOR Office Visit [facility] Medical [facility] - Family Medicine - [place] #2 [place] [address] Liz Capellan, DO 2 [facility] [address] [place] [address] 07/20/2024 2:15 PM WEB COORDINATOR Office Visit [facility] Endocrinology - [place] #2 [place] [address] Ana Vivar, FLOOR SWEEPER, TANK BUILDER AND ERECTOR 2 [facility] [address] [place] [address] Yasmin Restrepo MD #[address] [address] 07/31/2024 1:00 PM WEB COORDINATOR [facility] [address] [place] [address] Werner Swift MD #2 [place] [address] Discharge Disposition: Discharged to home or Selfcare 08/03/2024 1:15 PM CDT Office Visit [facility] - Pulmonology & Sleep Medicine - [place] #2 [place] [address] Werner Swift MD #2 [place] [address] 09/02/2024 2:00 PM CDT Appointment [facility] Respiratory Therapy 1 [place] [address] Werner Swift MD #2 [place] [address] Discharge Disposition: Discharged to home or Selfcare 10/09/2024 2:30 PM CDT [facility] #2 [place] [address] Liz Capellan, DO [address] [address] documented as of this encounter Visit Diagnoses Diagnosis Anxiety Anxiety state, unspecified documented in this encounter Additional Health Concerns Infection Onset Date Last Indicated Resolved Time COVID - 19 07/23/2021 07/23/2021 07/24/2021 6:31 AM WEB COORDINATOR COVID - 19 10/19/2021 10/19/2021 10/20/2021 7:45 AM CDT Respiratory Rule Out - RPA 10/19/2021 10/19/2021 0 10/20/2021 2:10 PM CDT Stenotrophomonas maltophilia Comment:Must have a follow up respiratory sample to remove isolation flag. 10/20/2021 10/20/2021 COVID - 19 04/20/2022 04/20/2022 04/30/2022 12:1 8 AM WEB COORDINATOR COVID - 19 07/18/2022 07/18/2022 07/28/2022 12:1 6 AM WEB COORDINATOR COVID - 19 08/21/2022 08/21/2022 08/22/2022 8:31 AM CDT Respiratory Rule Out - RPA 08/21/2022 08/21/2022 0 08/22/2022 3:21 PM CDT COVID - 19 04/18/2023 04/18/2023 04/28/2023 12:1 6 AM WEB COORDINATOR COVID - 19 07/13/2023 07/13/2023 07/23/2023 12:1 6 AM WEB COORDINATOR Respiratory Rule Out - RPA 03/17/2024 03/17/2024 1 3:36 PM CDT COVID - 19 04/27/2024 04/27/2024 04/27/2024 2:19 PM WEB COORDINATOR Assessment Noted Time PHQ-9 Depression Total Score: 0 02/04/20 11:12 AM CDT documented as of this encounter Care Teams General Internist And Physician Leader Relationship Specialty Start Date End Date Keith Craft MD PCP - General Family Medicine 01/14/19 12/26/23 Liz Capellan DO [address] [address] PCP - General Family Medicine 12/27/23 Quang Locke DO Gastroenterology 01/18/16 Bir Rollins RN [place] Lobster Man 03/07/21 05/22/23 [place] [address] [address] 05/25/21 Bri Rollins RN [place] Nurse Lobster Man 03/07/21 05/23/23 Werner Swift MD #2 [place] [address] Consulting Physician Pulmonary Disease 01/30/22 documented as of this encounter
--- OUTSIDE RECORDS SUMMARY | 2024-07-10 13:42 | XMS_ITS | Encounter Summary ---
Author Organization [facility] Address [address] [place] [address] Phone Care Team Providers Care Engineered Wood Designer Name Role Phone Quang Locke Unavailable [phone] Silvio Schulte MD Unavailable [phone] Werner Swift MD Unavailable Liz Capellan DO Primary Care Provider [phone] Reason for Visit * Reason Onset Date Comments Medication Refill 07/08/2024 Encounter Details Date Type Department Care Team (Late st Contact Info) Description 07/08/2024 Refill [facility] - Family Medicine [facility] [address] [place] [address] Liz Capellan DO 2 [facility] [address] [place] [address] Medication Refill Social History Tobacco Use Types Packs/Day Years Used Date Smoking Tobacco: Former Cigarettes 2 50 1 - 03/16/2018 Smokeless Tobacco: Never Comments:Still uses nictoine patches and gum Alcohol Use Standard Drinks/Week Comments No 0 (1 standard drink = 0.6 oz pur e alcohol) [facility] Utilities Answer Date Recorded In the past [...] declined 04/27/2024 How often do you attend roman catholic or sikhism serv ices? Patient declined 04/27/2024 Do you belong to any clubs o r organizations such as roman catholic groups, unions, fraternal or athletic groups, [...] Total Score - Questions 1-9 4 10/25 [facility] [place] [facility] Occupat ional Health - Occupational Stress [...] place to sleep or slept in a senior living (including now)? No 07/13/2023 Housing Stability Vital Sign Answer Irchar e Recorded In the last 12 months, was t here a time when you were not able to pay the mortgage or rent on time? Patient declined 04/27/20 24 In the past 12 months, how m any times have you moved where you were living? 1 04/27/2024 At any time in the past 12 m [facility], were you homeless or living in a senior living (including now)? Patient declined 04/27/2024 Education Answer [...] Telephone Encounter - Gloria Cornejo RN - 07/08/2024 1:45 PM CST Images from the original note were not included. Component Ref Range & Units (hover) 6 mo ago (01/01/24) 1 yr ago (12/17/22) 3 yr ago (04/18/21) 3 yr ago (02/08/21) 4 yr ago (11/02/19) 4 yr ago (07/27/19) 5 yr ago (01/14/19) VITAMIN D, 25 HYDROX 50 99 R 67 R 83 R >=60 R >=60 R >=60 diazePAM Dispensed Days Supply Quantity Provider Pharmacy DIAZEPAM 5 MG TABLET 06/08/2024 30 30 Tablet Liz Capellan, DO [facility] Bet... DIAZEPAM 5 MG TABLET 05/09/2024 30 30 Tablet Liz Capellan, [facility] Bet... oxyCODONE-Acetaminophen Dispensed Days Supply Quantity Provider Pharmacy OXYCODONE-ACETAMINOPHEN 10-325 06/08/2024 30 90 Tablet Liz Capellan, DO [facility] Bet... OXYCODONE-ACETAMINOPHEN 10-325 05/09/2024 30 90 Tablet Liz Capellan, [facility] Bet.. Medication failed the protocol, provider to review and approve the medication order if appropriate. Requested Prescriptions Pending Prescriptions Disp Refills diazePAM (VALIUM) 5 MG Tablet 30 Tablet 0 Sig: Take 1 Tablet by mouth nightly as needed for Anxiety. Not Delegated - Benzodiazepines Protocol Failed - 07/08/2024 1:45 PM Failed - This refill cannot be delegated Passed - Visit with relevant provider in past 12 months or upcoming 90 days Recent Visits Date Type Provider Dept 05/11/24 Office Visit Ana Vivar APRN, WATER RECLAMATION SYSTEMS OPERATOR [facility] 04/10/24 Office Visit Liz Capellan, DO [facility] 03/30/24 Office Visit Liz Capellan, DO [facility] 02/04/24 Office Visit Liz Capellan, DO [facility] 12/27/23 Office Visit Liz Capellan, DO [facility] 12/19/23 Office Visit Whitney Gallardo APRN, WATER RECLAMATION SYSTEMS OPERATOR [facility] 11/08/23 Office Visit Brie Denis, PAC [facility] 08/15/23 Office Visit Keith Craft MD [facility] [place] Showing recent visits within past 365 days and meeting all other requirements Future Appointments Date Type Provider Dept 07/13/24 Appointment Liz Capellan DO [facility] Showing future appointments within next 90 days and meeting all other requirements oxyCODONE-Acetaminophen (PERCOCET) 10-325 MG Tablet 90 Tablet 0 Sig: Take 1 Tablet by mouth every 8 hours as needed for Severe pain. Not Delegated - Opioid Combinations Protocol Failed - 07/08/2024 1:45 PM Failed - This refill cannot be delegated Passed - Visit with relevant provider in past 12 months or upcoming 90 days Recent Visits Date Type Provider Dept 05/11/24 Office Visit Ana Vivar, REBECCA, WATER RECLAMATION SYSTEMS OPERATOR [facility] 04/10/24 Office Visit Liz Capellan, DO [facility] 03/30/24 Office Visit Liz Capellan, DO [facility] 02/04/24 Office Visit Liz Capellan, DO [facility] 12/27/23 Office Visit Liz Capellan, DO [facility] 12/19/23 Office Visit Whitney Gallardo APRN, WATER RECLAMATION SYSTEMS OPERATOR [facility] 11/08/23 Office Visit Brie Denis, PAC [facility] 08/15/23 Office Visit Keith Craft MD [facility] [place] Showing recent visits within past 365 days and meeting all other requirements Future Appointments Date Type Provider Dept 07/13/24 Appointment Liz Capellan DO [facility] Showing future appointments within next 90 days and meeting all other requirements ergocalciferol (VITAMIN D) 29369 UNIT Capsule 12 Capsule 0 Sig: Take 1 Capsule by mouth once a week. Vitamin Supplements (Adult) Protocol Failed - 07/08/2024 1:45 PM Failed - Vitamin D dose not greater than 1.25mg Passed - Visit with relevant provider in past 12 months or upcoming 90 days Recent Visits Date Type Provider Dept 05/11/24 Office Visit Ana Vivar APRN, WATER RECLAMATION SYSTEMS OPERATOR [facility] 04/10/24 Office Visit Liz Capellan, DO [facility] 03/30/24 Office Visit Liz Capellan, DO [facility] 02/04/24 Office Visit Liz Capellan, DO [facility] 12/27/23 Office Visit Liz Capellan, DO [facility] 12/19/23 Office Visit Whitney Gallardo APRN, WATER RECLAMATION SYSTEMS OPERATOR [facility] 11/08/23 Office Visit Brie Denis, PAC [facility] 08/15/23 Office Visit Keith Craft MD [facility] Showing recent visits within past 365 days and meeting all other requirements Future Appointments Date Type Provider Dept 07/13/24 Appointment Liz Capellan, DO [facility] Showing future appointments within next 90 days and meeting all other requirements PLUGGER MACHINE OPERATOR PLUGGER MACHINE OPERATOR * Telephone Encounter - Flakita Alcantar MA - 07/08/2024 10:04 AM ROLL PLUGGER MACHINE OPERATOR [facility] refill fax request : Vit-D 50,000 Unit capsules PLUGGER MACHINE OPERATOR documented in this encounter Plan of Treatment Upcoming Encounters Date Type Department Care Team (Late st Contact Info) Description 07/13/2024 1:30 PM ROLL PLUGGER MACHINE OPERATOR Office Visit [facility] Medical [facility] - Family Medicine - [place] [address] [place] [address] Liz Capellan, DO [address] [address] 07/20/2024 2:15 PM ROLL PLUGGER MACHINE OPERATOR Office Visit [facility] - Endocrinology - [place] [address] [facility] [place] [address] Ana Vivar, REBECCA, WATER RECLAMATION SYSTEMS OPERATOR 2 [facility]. [address] [place] [address] Yasmin Restrepo MD [address] [facility] [address] [phone] 07/31/2024 1:00 PM ROLL PLUGGER MACHINE OPERATOR [facility] [address] [place] [address] Werner Swift MD [address] [place] [phone] Discharge Disposition: Discharged to home or Selfcare 08/03/2024 1:15 PM CDT [facility] [address] [place] [phone] Werner Swift MD [address] [place] [phone] 09/02/2024 2:00 PM CDT [facility]ment [facility] [address] [place] [phone] Werner Swift MD [address] [place] [phone] Discharge Disposition: Discharged to home or Selfcare 10/09/2024 2:30 PM CDT [facility] - [facility] Medicine [facility] [address] [place] [phone] Liz Capellan, DO 2 [facility] [address] [place] [address] documented as of this encounter Goals Goal [...] Zones/Action plan education. I will notify my Head Boys Golf Coach if my symptoms fall in the y ellow zone . I will consider receiving an influenza and pneumonia vaccination, if applicable. -I will call the office if I experience any symptoms listed above to discuss at home management options. documented as of this encounter Visit Diagnoses Diagnosis Anxiety and depression Dysthymic disorder Neuropathy Mononeuritis of unspecified site documented in this encounter Additional Health Concerns Infection Onset Date Last Indicated Resolved Time Stenotrophomonas maltophilia Comment:Must have a follow up respiratory sample to remove isolation flag. 10/20/2021 10/20/2021 Assessment Noted Time PHQ-9 Depression Total Score: 4 11/08/19 24 9:33 AM CDT documented as of this encounter Care Teams Engineered Wood Designer Relationship Specialty Start Date End Date Liz Capellan DO 2 [facility] [address] [address] PCP - General Family Medicine 12/27/23 Quang Locke DO Gastroenterology 01/18/16 [place] [id number] [address] 05/25/21 Werner Swift MD [address] [place] [address] Consulting Physician Pulmonary Disease 01/30/22 documented as of this encounter
--- OUTSIDE RECORDS SUMMARY | 2024-07-10 13:42 | XMS_ITS | Referral Summary ---
Author Organization [facility] Address [address] [place] [address] Care Team Providers Care Button Cutter Name Role Phone Keith Craft MD Primary Care Provider [phone] Luis F Frausto MD Unavailable [phone] Encounters Date Type Department Care Team Description 06/10/2024 2:45 PM SENIOR MECHANICAL ESTIMATOR Lab [address] [address] from Last 3 Months Allergies Active Allergy Reactions Criticality Noted Date Comments Morphine Hallucinations Medium 09/12/2021 Penicillin V Unknown,Anaphylaxis, Itc jaiden High 06/26/2018 Tongue gets thick Sulfa (Sulfonamide Antibiotics) Anaphylaxis,Other (See comments) High 06/24/2017 Tongue gets thick and itching Sulfasalazine Unknown,Anaphylaxis High 06/24/2017 Tongue gets thick, itching Medications SITagliptin (JANUVIA) 100 mg tablet take 1 tablet by oral route every day 0 0 7 Active Additional Information Patient taking differently:100 mgoral Daily, Reported on 09/13/2021 rosuvastatin (CRESTOR) 5 mg tablet take 1 tablet by oral route every day 0 0 7 Active Additional Information Patient taking differently: 20 mg oral Nightly, Reported on 09/13/2021 amitriptyline (ELAVIL) 25 mg tablet take 1 tablet by oral route every day at bedtime 0 0 7 Active Additional Information Patient taking differently:25 mgoral Nightly, Reported on 09/13/2021 gabapentin (NEURONTIN) 800 mg tablet take 1 tablet by oral route 3 times every day 0 0 7 Active Additional Information Patient taking differently:800 mgoral 3 times daily, Reported on 09/13/[address] (CYMBALTA) 60 mg capsule take 1 capsule by oral route every day 0 0 7 Active Additional Information Patient taking differently:60 mgoral Daily, Reported on 09/13/2021 levothyroxine sodium (TIROSINT) 50 mcg capsule take 1 capsule by oral route every day 0 0 7 Active Additional Information Patient taking differently: 25 mcg oral Daily, Reported on 09/13/2021 cyanocobalamin (Vitamin B-12) 1,000 mcg tablet 1,000 mcg. 0 0 7 Active Additional Information Patient taking differently:1,000 mcgoral 2 times weekly, Reported on 09/13/2021 diazePAM (VALIUM) 5 mg tablet take 1 tablet by oral route 8 times every day 0 0 7 Active Additional Information Patient taking differently:5 mgoral Every 12 hours PRN, Indications: anxiety, Muscle Spasm, Reported on 09/13/2021 ivabradine (CORLANOR) 5 mg tablet Take 5 mg by mouth daily. Active ergocalciferol (VITAMIN D) 50,000 unit capsule Take 50,000 Units by mouth once a week. Active ibuprofen (ADVIL,MOTRIN) 800 mg tablet Take 800 mg by mouth daily as needed for pain. Active naloxegol (MOVANTIK) 25 mg tablet Take 25 mg by mouth daily. Active valACYclovir (VALTREX) 500 mg tablet Take 500 mg by mouth nightly. Active albuterol (PROVENTIL,VENT MARQUIS) 2.5 mg /3 mL (0.083 %) nebulizer solution Take 3 mL by nebulization 4 (four) times a day as needed. 2 8 Active albuterol HFA (PROVENTIL HFA,VENTOLIN HFA,PROAIR HFA) 90 mcg/actuation inhaler Inhale 2 puffs every 4 (four) hours as needed. Active sacubitril-vals carmelina (ENTRESTO) 24-26 mg tablet Take 1 tablet by mouth 2 (two) times a day. Active insulin glargine (LANTUS) 100 unit/mL injection Inject 14 Units under the skin nightly. Active insulin aspart (NovoLOG) 100 unit/mL vial for injection Inject 6 Units under the skin 2 (two) times a day after lunch and dinner. Active ULTICARE PEN NEEDLE 31 gauge x 1/4 needle INJECTING 3 TIMES A DAY 3 8 Active fluticasone propionate (FLONASE NASL) Administer 2 sprays into each nostril daily as needed. Active aspirin 81 mg tablet Take 81 mg by mouth nightly. 2 8 Active SUMAtriptan (IMITREX) 100 mg tablet Take 100 mg by mouth once as needed for migraine. Active HYDROcodone-harlan taminophen (NORCO) 7.5-325 mg per tabletIndicatio ns:Pain Take 1 tablet by mouth every 6 (six) hours as needed for pain Active fluticasone-ume clidin-vilanter (Trelegy Ellipta) 100-62.5-25 mcg inhaler Inhale 1 puff daily Active theophylline (THEODUR) 300 mg 12 hr tablet Take 400 mg by mouth daily Active metFORMIN (GLUCOPHAGE) 1,000 mg tablet Take 1 tablet (1,000 mg total) by mouth 2 (two) times a day with meals Do not restart until 09/15/2021 60 tablet 2 Active Active Problems Problem Noted Date Diagnosed Date Edema 08/23/2021 Overview (08/23/2021): Added automatically from request for surgery [id number] Influenza A 06/16/2017 Cardiomyopathy 06/16/2017 Septicemia 06/16/2017 Anxiety 06/16/2017 Chronic obstructive pulmonar y disease with acute exacerbation 05/21/2017 Social History Tobacco Use Types Packs/Day Years Used Date Smoking Tobacco: Former Cigarettes 2 52 1 06/1965 - 04/2018 Smokeless Tobacco: Never Alcohol Use Standard Drinks/Week Comments No 0 (1 standard drink = 0.6 oz pur e alcohol) AUDIT-C Answer Date Recorded Q1: How often do you have a drink containing alc ohol? Never 09/12/2021 Average Number of Drinks Not on file 022 Q3: How often do you have si x or more drinks on one occasion? Never 09/12/2021 Comments No Sex and Gender Information Value Date Recorded Sex Assigned at Not on file Legal Sex Female 5:46 PM SENIOR MECHANICAL ESTIMATOR Gender Identity Not on file Sexual Orientation Not on file Last Filed Vital Signs Vital Sign Reading Time Taken Comments Blood Pressure 116/59 09/13/2021 10:45 AM CDT Pulse 72 09/13/2021 11:10 AM CDT Temperature 36.9 C (98.4 F) 09/13/2021 7:44 AM CDT Respiratory Rate 16 09/13/2021 7:44 AM CDT Oxygen Saturation 91% 09/13/2021 11:10 AM CDT Inhaled Oxygen Concentration - - Weight 65.5 kg (144 lb 6.4 oz) 02/15/2023 1:50 P M CDT Height 155 cm (5' 1.02 ) 02/15/2023 1:50 PM CDT Body Mass Index 27.26 02/15/2023 1:50 PM CDT Plan of Treatment Not on file Medical Devices Implanted Type Area Vice Admiral Device Identifier Shelf Expiration Date Model / Serial / Lot Icd ICD Left: Chest Procedures Procedure Name Priority Date/Time Associated Diagnosis Comments COLONOSCOPY 02/23/2010 12:00 AM CDT from Last 3 Months or Most Recently Relevant to Health Maintenance Results * COLONOSCOPY (02/23/2010 12:00 AM CDT) Anatomical Region Laterality Modality Other Narrative 02/23/2010 12:00 AM CDT Ordered by an unspecified provider. Procedure Note Provider, MD Karla - 02/23/2010 12:00 AM CDT PROCEDURE REPORT Patient: KARY CORONADO Account: [id number] Room No: : 1950 Patient Type: [facility] Attend.: Jass Huang M.D. Admit Date: 02/23/2010 Dict.: Jass Huang M.D. Disch. Date: NAME OF PROCEDURE: Colonoscopy. HISTORY OF PRESENT ILLNESS This is a 59-year-old female who presents for screening colonoscopy. PHYSICAL EXAMINATION Well developed female. Lungs are clear. Cardiovascular exam isunremarkable. PROCEDURE: Colonoscopy was performed with the Fiberstar video endoscope. The patientwas premedicated by anesthesia. On digital exam, she has grade II-III hemorrhoids. We inserted the endoscope and advanced it to the cecum.Sigmoid diverticula are noted, however, the colon is so poorly prepped that itis very difficult to see, this due to noncompliance with instructions. Wedid the best we could with a lot of suction and irrigation. Neverthelessthere were just areas of the colon that were just non-visible. We removed the endoscope. The patient tolerated the procedure without difficulty. POSTOPERATIVE DIAGNOSES 1. Poor prep. 2. Poor visualization. 3. Sigmoid diverticulosis. 4. Hemorrhoidal disease. Jass Huang M.D. /rosette TD: 02/24/2010 10:39 CC: José Wiley M.D. PROCEDURE REPORT Authenticated by Jass Huang MD On 02/27/2010 08:10:11 AM Historical Provider MD ENDOSCOPY PROCEDURES Loren l Result from Last 3 Months or Most Recently Relevant to Health Maintenance Insurance MEDICARE [facility] Member Subscriber Plan / Payer (Ef fective 2021-Present) Name:Kary Coronado Relation to Subscriber:Self Name:Kary Coronado Payer ID:[id number] (NAIC) Type:MEDICARE RISK OTHER Address: [facility] ATTN: CLAIMS [address] [place] [id number] [facility] [place] Advance Directives For more information, please contact: [phone] * Full Code (Latest Code Status on File) Date Activated Date Inactivated Comments 05/17/2017 9:28 PM 05/21/2017 8:00 PM Care Teams Button Cutter Relationship Specialty Start Date End Date Keith Craft MD [address] [address] PCP - General 02/05/21 Luis F Frausto MD [facility] [address] [address] Consulting Physician Interventional Cardiology 09/13/21
--- OUTSIDE RECORDS SUMMARY | 2024-07-10 13:42 | XMS_ITS | Encounter Summary ---
Author Organization [facility] Address [address] [place] [address] Phone Care Team Providers Care Instrument Maker Name Role Phone Quang Locke Unavailable [phone] Keith Craft MD Primary Care Provider [phone] Bri Rollins RN Unavailable Unavailable Silvio Schulte MD Unavailable [phone] Bri Rollins RN Unavailable Unavailable Werner Swift MD Unavailable Liz Capellan DO Primary Care Provider [phone] Reason for Visit * Reason Comments Medication Refill Encounter Details Date Type Department Care Team (Late st Contact Info) Description 11/01/2020 Refill [facility] #2 [place] [address] Keith Craft MD #1 [place] [address] Medication Refill Social History Tobacco Use Types [...] have Coronavirus / COVID-19? No / Unsure 11/02/2020 1:22 PM CDT documented as of this encounter Miscellaneous Notes * Telephone Encounter - Gloria Cornejo RN - 11/02/2020 10:50 AM CDT [place] 10/03/20 Medication failed the protocol, provider to review and approve the medication order if appropriate. Requested Prescriptions Pending Prescriptions Disp Refills diazePAM (VALIUM) 10 MG Tablet [Pharmacy Med Name: DIAZEPAM 10 MG TABLET] 30 Tablet 0 Sig: TAKE 1 TABLET BY MOUTH EVERY DAY healthfinch Not Delegated - Psychiatry: Anxiolytics/Hypnotics Failed - 11/02/2020 10:50 AM Failed - This refill cannot be delegated Passed - Valid encounter within last 6 months Past Office Visits Recent Outpatient Visits 3 weeks ago Pneumonia of right upper lobe due to infectious organism [facility] - Keith Jenkins MD 4 weeks ago Hypoglycemia [facility] Family Medicine - Keith Jenkins MD 4 months ago Mixed hyperlipidemia [facility] Family Medicine Keith Lemus MD 6 months ago Pneumonia of right upper lobe due to infectious organism [facility] Family Medicine Keith Lemus MD 9 months ago Acute non-recurrent maxillary sinusitis [facility] Family Medicine Keith Lemus MD Upcoming Appointments Future Appointments Today [address] Mammography, [facility] In 2 months Keith Craft MD [facility], [facility] OSTOMY NURSE - Recent and Past Visits Recent Visits Date Type Provider Dept 10/12/20 Office Visit Keith Craft MD [facility] 10/04/20 Office Visit Keith Craft, MD [facility] 06/07/20 Office Visit Keith Craft, MD [facility] 04/25/20 Office Visit Keith Craft, MD [facility] 02/02/20 Office Visit Keith Craft, MD [facility] 11/02/19 Office Visit Keith Craft, MD [facility] Showing recent visits within past 460 [...] st Contact Info) Description 07/13/2024 1:30 PM CHARTER SCHOOL EXECUTIVE DIRECTOR Office Visit [facility] Family Medicine - [place] #2 [facility] [place] [address] Liz Capellan, DO [address] [address] 07/20/2024 2:15 PM CHARTER SCHOOL EXECUTIVE DIRECTOR Office Visit [facility] - Endocrinology [facility] #2 [place] [address] Ana Vivar, POLYGRAPH OPERATOR, MANUFACTURING HELPER 2 [facility] [address] [place] [address] Yasmin Restrepo MD #[address] [place] [address] 07/31/2024 1:00 PM CHARTER SCHOOL EXECUTIVE DIRECTOR [facility] [address] [place] [address] Werner Swift MD [address]2 [place] [address] Discharge Disposition: Discharged to home or Selfcare 08/03/2024 1:15 PM CDT [facility] - Pulmonology & Sleep Medicine [facility] [address]2 [place] [address] Werner Swift MD #2 [place] [address] 09/02/2024 2:00 PM CDT [facility]ment [facility] 1 [place] [address] Werner Swift MD #2 [place] [address] Discharge Disposition: Discharged to home or Selfcare 10/09/2024 2:30 PM CDT Office Visit [facility] Medical [facility] - Family Medicine [facility] [address]2 [place] [address] Liz Capellan, [address] [address] documented as of this encounter Visit Diagnoses Diagnosis Anxiety and depression Dysthymic disorder documented in this encounter Additional Health Concerns Infection Onset Date Last Indicated Resolved Time COVID - 19 01/25/2021 01/25/2021 01/31/2021 8:10 AM CDT Respiratory Rule Out - RPA 01/30/2021 01/30/2021 0 02/01/2021 12:45 AM CDT COVID - 19 07/23/2021 07/23/2021 07/24/2021 6:31 AM CHARTER SCHOOL EXECUTIVE DIRECTOR COVID - 19 10/19/2021 10/19/2021 10/20/2021 7:45 AM CDT Respiratory Rule Out - RPA 10/19/2021 10/19/2021 0 10/20/2021 2:10 PM CDT Stenotrophomonas maltophilia Comment:Must have a follow up respiratory sample to remove isolation flag. 10/20/2021 10/20/2021 COVID - 19 04/20/2022 04/20/2022 04/30/2022 12:1 8 AM CHARTER SCHOOL EXECUTIVE DIRECTOR COVID - 19 07/18/2022 07/18/2022 07/28/2022 12:1 6 AM CHARTER SCHOOL EXECUTIVE DIRECTOR COVID - 19 08/21/2022 08/21/2022 08/22/2022 8:31 AM CDT Respiratory Rule Out - RPA 08/21/2022 08/21/2022 0 08/22/2022 3:21 PM CDT COVID - 19 04/18/2023 04/18/2023 04/28/2023 12:1 6 AM CHARTER SCHOOL EXECUTIVE DIRECTOR COVID - 19 07/13/2023 07/13/2023 07/23/2023 12:1 6 AM CHARTER SCHOOL EXECUTIVE DIRECTOR Respiratory Rule Out - RPA 03/17/2024 03/17/2024 1 3:36 PM CDT COVID - 19 04/27/2024 04/27/2024 04/27/2024 2:19 PM CHARTER SCHOOL EXECUTIVE DIRECTOR Assessment Noted Time PHQ-9 Depression Total Score: 2 06/07/19 21 2:34 PM CHARTER SCHOOL EXECUTIVE DIRECTOR documented as of this encounter Care Teams Instrument Maker Relationship Specialty Start Date End Date Keith Craft MD PCP - General Family Medicine 01/14/19 12/26/23 Liz Capellan DO 2 [facility] [address] [address] PCP - General Family Medicine 12/27/23 Quang Locke DO Gastroenterology 01/18/16 Bri Rlolins RN [place] Rim [place]uster 03/07/21 05/22/23 [place] [address] [address] 05/25/21 Bri Rollins RN [place] Nurse Rim Buster 03/07/21 05/23/23 Werner Swfit MD #2 [place] [address] Consulting Physician Pulmonary Disease 01/30/22 documented as of this encounter
--- OUTSIDE RECORDS SUMMARY | 2024-07-10 13:42 | XMS_ITS | Encounter Summary ---
Author Organization [facility] Address [address] [place] [address] Phone Care Team Providers Care Billboard Erector Helper Name Role Phone Quang Locke DO Unavailable [phone] Keith Craft MD Primary Care Provider [phone] Bri Rollins RN Unavailable Unavailable Silvio Schulte MD Unavailable [phone] Bri Rollins RN Unavailable Unavailable Werner Swift MD Unavailable Liz Capellan DO Primary Care Provider [phone] Reason for Visit * Reason Comments Medication Refill Encounter Details Date Type Department Care Team (Late st Contact Info) Description [facility] [address] [place] [address] eKith Craft MD #1 [place] [address] Medication Refill Social History Tobacco Use Types [...] Telephone Encounter - Gloria Cornejo RN - 02/20/2021 2:56 PM CDT PRN medication requires review from provider Per nursing clinical judgement, provider to review and approve the medication(s) order(s) if appropriate. Requested Prescriptions Pending Prescriptions Disp Refills Ventolin HFA 108 (90 Base) MCG/ACT Aerosol Solution [Pharmacy Med Name: VENTOLIN HFA 90 MCG INHALER] 18 g 2 Sig: INHALE 2 PUFFS BY MOUTH EVERY 4 HOURS NEEDED FOR WHEEZING Short Acting Inhaled Beta-Agonists Protocol Passed - 02/20/2021 12:00 AM Passed - Visit with relevant provider in past 12 months or upcoming 90 days Recent Visits Date Type Provider Dept 02/07/21 Office Visit Keith Craft MD [facility] 02/03/21 Office Visit Brie Denis PAC [facility] 01/12/21 Office Visit Keith Craft MD [facility] 10/12/20 Office Visit Keith Craft MD [facility] 10/04/20 Office Visit Keith Craft MD [facility] 06/07/20 Office Visit Keith Craft MD [facility] 04/25/20 Office Visit Keith Craft MD [facility] Showing recent visits within past 365 days and meeting all other requirements Future Appointments Date Type Provider Dept 04/14/21 Appointment Keith Craft MD [facility] Showing future appointments within next 90 days and meeting all other requirements documented in this encounter Plan of Treatment Upcoming Encounters Date Type Department Care Team (Late st Contact Info) Description 07/13/2024 1:30 PM DATABASE MARKETING ANALYST Office Visit [facility] Medical [facility] - Family Medicine - [place] #2 [facility] [place] [address] Liz Capellan L, DO 2 [facility] [address] [place] [address] 07/20/2024 2:15 PM DATABASE MARKETING ANALYST Office Visit [facility] - Endocrinology - [place] #2 [place] [address] Ana Vivar, CENTRAL SCHEDULER, CHEESE MAKER [address] [address] Yasmin Restrepo MD #[address] [address] 07/31/2024 1:00 PM DATABASE MARKETING ANALYST [facility] [address] [place] [address] Werner Swift MD #2 [place] [address] Discharge Disposition: Discharged to home or Selfcare 08/03/2024 1:15 PM CDT Office Visit [facility] - Pulmonology & Sleep Medicine - [place] #2 [place] [address] Werner Swift MD #2 [place] [address] 09/02/2024 2:00 PM CDT Appointment [facility] Respiratory Therapy [address] [place] [address] Werner Swift MD [address] [place] [address] Discharge Disposition: Discharged to home or Selfcare 10/09/2024 2:30 PM CDT Office Visit [facility] - Family [facility] - [place] #2 [place] [address] Liz Capellan, DO 2 [facility] [address] [address] documented as of this encounter Visit Diagnoses Diagnosis Pulmonary emphysema, unspecified emphysema type (HCC) documented in this encounter Additional Health Concerns Infection Onset Date Last Indicated Resolved Time COVID - 19 07/23/2021 07/23/2021 07/24/2021 6:31 AM DATABASE MARKETING ANALYST COVID - 19 10/19/2021 10/19/2021 10/20/2021 7:45 AM CDT Respiratory Rule Out - RPA 10/19/2021 10/19/2021 0 10/20/2021 2:10 PM CDT Stenotrophomonas maltophilia Comment:Must have a follow up respiratory sample to remove isolation flag. 10/20/2021 10/20/2021 COVID - 19 04/20/2022 04/20/2022 04/30/2022 12:1 8 AM DATABASE MARKETING ANALYST COVID - 19 07/18/2022 07/18/2022 07/28/2022 12:1 6 AM DATABASE MARKETING ANALYST COVID - 19 08/21/2022 08/21/2022 08/22/2022 8:31 AM CDT Respiratory Rule Out - RPA 08/21/2022 08/21/2022 0 08/22/2022 3:21 PM CDT COVID - 19 04/18/2023 04/18/2023 04/28/2023 12:1 6 AM DATABASE MARKETING ANALYST COVID - 19 07/13/2023 07/13/2023 07/23/2023 12:1 6 AM DATABASE MARKETING ANALYST Respiratory Rule Out - RPA 03/17/2024 03/17/2024 1 3:36 PM CDT COVID - 19 04/27/2024 04/27/2024 04/27/2024 2:19 PM DATABASE MARKETING ANALYST Assessment Noted Time PHQ-9 Depression Total Score: 0 02/04/20 11:12 AM CDT documented as of this encounter Care Teams Billboard Erector Helper Relationship Specialty Start Date End Date Keith Craft MD PCP - General Family Medicine 01/14/19 12/26/23 Liz Capellan DO [address] [address] PCP - General Family Medicine 12/27/23 Quang Locke DO Gastroenterology 01/18/16 Bri Rollins, RN [place] Powerhouse Attendant 03/07/21 05/22/23 [place] [address] [address] 05/25/21 Bri Rollins, RN [place] Nurse Powerhouse Attendant 03/07/21 05/23/23 Werner Swift MD #2 [place] [address] Consulting Physician Pulmonary Disease 01/30/22 documented as of this encounter
--- OUTSIDE RECORDS SUMMARY | 2024-07-10 13:42 | XMS_ITS | Encounter Summary ---
Author Organization [facility] Address [address] [place] [address] Phone Care Team Providers Care Appeals Referee Name Role Phone Quang Locke Unavailable [phone] Keith Craft MD Primary Care Provider [phone] Bri Rollins RN Unavailable Unavailable Silvio Schulte MD Unavailable [phone] Bri Rollins RN Unavailable Unavailable Werner Swift MD Unavailable Liz Capellan DO Primary Care Provider [phone] Reason for Visit * Reason Comments Medication Refill Encounter Details Date Type Department Care Team (Late st Contact Info) Description 11/29/2022 Refill [facility] Family Medicine [facility] #2 [place] [address] Keith Craft MD #1 [place] [address] Medication Refill Social History Tobacco Use Types [...] Telephone Encounter - Gloria Cornejo RN - 11/30/2022 8:23 AM CDT Medication failed the protocol, provider to review and approve the medication order if appropriate. Requested Prescriptions Pending Prescriptions Disp Refills escitalopram (LEXAPRO) 10 MG Tablet [Pharmacy Med Name: ESCITALOPRAM OXALATE 10MG TABLET] 90 Tablet1 Sig: TAKE 1 TABLET BY MOUTH EVERY EVENING. SSRI (6 Month Refill Only) Protocol Failed - 11/29/2022 11:57 AM Failed - Patient has established therapy with SSRI for at least 6 months Passed - Visit with relevant provider in past 6 months or upcoming 90 days Recent Visits Date Type Provider Dept 09/10/22 Office Visit Keith Craft MD [facility] 07/18/22 Office Visit Kerri Kauffman, MESMERIST, NURSE MIDWIFE/CLINICAL INSTRUCTOR [facility] 06/07/22 Office Visit Keith [facility] MD [facility] Showing recent visits within past 182 days and meeting all other requirements Future Appointments Date Type Provider Dept 12/10/22 Appointment Keith Craft MD [facility] Showing future appointments within next 90 days and meeting all other requirements Passed - Has an encounter in the past 6 months with a depression, anxiety, adjustment disorder, OCD, or PTSD visit diagnosis Refused Prescriptions Disp Refills ergocalciferol (VITAMIN D) 01156 UNIT Capsule [Pharmacy Med Name: VITAMIN D 76366OSP CAPSULE] 12 Capsule 0 Sig: TAKE ONE CAPSULE BY MOUTH ONE TIME WEEKLY Vitamin Supplements (Adult) Protocol Failed - 11/29/2022 11:57 AM Failed - Active on medication list Failed - Vitamin D less than 1.25mg Passed - Visit with relevant provider in past 12 months or upcoming 90 days Recent Visits Date Type Provider Dept 09/10/22 Office Visit Keith Craft MD [facility] 07/18/22 Office Visit Kerri Kauffman, MESMERIST, NURSE MIDWIFE/CLINICAL INSTRUCTOR [facility]22 Office Visit Keith Craft MD [facility] 03/02/22 Procedure Visit [facility] Show[facility] recent visits within past 365 days and meeting all other requirements Future Appointments Date Type Provider Dept 12/10/22 Appointment Keith Craft MD [facility] Showing future appointments within next 90 days and meeting all other requirements * Telephone Encounter - Gloria Cornejo RN - 11/30/2022 8:21 AM CDT Name from pharmacy: VITAMIN D 89598IIN CAPSULE Will file in chart as: ergocalciferol (VITAMIN D) 45944 UNIT Capsule The original prescription was discontinued on 11/01/2022 by Keith Craft MD documented in this encounter Plan of Treatment Upcoming Encounters Date Type Department Care Team (Late st Contact Info) Description 07/13/2024 1:30 PM PRINT DEVELOPER Office Visit [facility] Medical [facility] - Family Medicine - [place] #2 [place] [address] Liz Capellan, DO [address] [address] 07/20/2024 2:15 PM PRINT DEVELOPER Office Visit [facility] Medical [facility] - Endocrinology - [place] #2 [place] [address] Ana Vivar N, MESMERIST, NURSE MIDWIFE/CLINICAL INSTRUCTOR 2 [facility] GUI [facility] [address] [place] [address] Yasmin Restrepo MD [address] [place] [address] 07/31/2024 1:00 PM PRINT DEVELOPER [facility] [place] [address] Werner Swift MD #2 [place] [address] Discharge Disposition: Discharged to home or Selfcare 08/03/2024 1:15 PM CDT [facility] - Pulmonology & Sleep Medicine [facility] #2 GUI [facility] [place] [address] Werner Swift MD #2 [place] [address] 09/02/2024 2:00 PM CDT [facility] 1 [place] [address] Werner Swift MD #2 [place] [address] Discharge Disposition: Discharged to home or Selfcare 10/09/2024 2:30 PM CDT Office Visit [facility] Medical Group - Family Medicine [facility] #2 [address] [place] [address] Liz Capellan, DO 2 [facility] [address] [address] [place] [address] documented as of this encounter Goals Goal [...] Zones/Action plan education. I will notify my Automotive Customer Experience Advisor if my symptoms fall in the y [...] 19 04/18/2023 04/18/2023 04/28/2023 12:1 6 AM PRINT DEVELOPER COVID - 19 07/13/2023 07/13/2023 07/23/2023 12:1 6 AM PRINT DEVELOPER Respiratory Rule Out - RPA 03/17/2024 03/17/2024 1 3:36 PM CDT COVID - 19 04/27/2024 04/27/2024 04/27/2024 2:19 PM PRINT DEVELOPER Assessment Noted Time PHQ-9 Depression Total Score: 1 03/07/20 10:29 AM CDT documented as of this encounter Care Teams Appeals Referee Relationship Specialty Start Date End Date Keith Craft MD PCP - General Family Medicine 01/14/19 12/26/23 Liz Capellan DO [address] [address] PCP - General Family Medicine 12/27/23 Quang Locke DO Gastroenterology 01/18/16 Bri Rollins, RN [place] Automotive Customer Experience Advisor 03/07/21 05/22/23 [place] [address] [address] 05/25/21 Bri Rollins, RN [place] Nurse Automotive Customer Experience Advisor 03/07/21 05/23/23 Werner Swift MD #2 [facility] [address] Consulting Physician Pulmonary Disease 01/30/22 documented as of this encounter
--- OUTSIDE RECORDS SUMMARY | 2024-07-10 13:42 | XMS_ITS | Encounter Summary ---
Author Organization [facility] Address [address] [place] [address] Phone Care Team Providers Care Manager Behavior Name Role Phone Quang Locke Unavailable [phone] Keith Craft MD Primary Care Provider [phone] Bri Rollins RN Unavailable Unavailable Silvio Schulte MD Unavailable [phone] Bri Rollins RN Unavailable Unavailable Werner Swift MD Unavailable iLz Capellan DO Primary Care Provider [phone] Reason for Visit * Reason Comments Medication Refill Encounter Details Date Type Department Care Team (Late st Contact Info) Description 02/12/2021 Refill [facility] Family [facility] #2 [place] [address] Keith Craft MD #1 [place] [address] Medication Refill Social History Tobacco Use Types [...] st Contact Info) Description 07/13/2024 1:30 PM OPS ANALYST Office Visit [facility] - Family Medicine [facility] #2 [place] [address] Liz Capellan, DO 2 [facility] [address] [place] [address] 07/20/2024 2:15 PM OPS ANALYST Office Visit [facility] - Endocrinology - [place] #2 [place] [address] Ana Vivar, CORK SLABS SAWYER, CHILDCARE TEACHER 2 [facility] [address] [place] [address] Yasmin Restrepo MD #[address] [address] 07/31/2024 1:00 PM OPS ANALYST [facility] [address] [place] [address] Werner Swift MD #2 [place] [address] Discharge Disposition: Discharged to home or Selfcare 08/03/2024 1:15 PM CDT [facility] #2 [place] [address] Werner Swift MD #2 [place] [address] 09/02/2024 2:00 PM CDT Appointment [facility] Respiratory Therapy 1 [place] [address] Werner Swift MD #2 [place] [address] Discharge Disposition: Discharged to home or Selfcare 10/09/2024 2:30 PM CDT Office Visit [facility] Family Medicine - [place] #2 [place] [address] Liz Capellan, DO [address] [address] documented as of this encounter Visit Diagnoses Diagnosis Anxiety and depression Dysthymic disorder documented in this encounter Additional Health Concerns Infection Onset Date Last Indicated Resolved Time COVID - 19 07/23/2021 07/23/2021 07/24/2021 6:31 AM OPS ANALYST COVID - 19 10/19/2021 10/19/2021 10/20/2021 7:45 AM CDT Respiratory Rule Out - RPA 10/19/2021 10/19/2021 0 10/20/2021 2:10 PM CDT Stenotrophomonas maltophilia Comment:Must have a follow up respiratory sample to remove isolation flag. 10/20/2021 10/20/2021 COVID - 19 04/20/2022 04/20/2022 04/30/2022 12:1 8 AM OPS ANALYST COVID - 19 07/18/2022 07/18/2022 07/28/2022 12:1 6 AM OPS ANALYST COVID - 19 08/21/2022 08/21/2022 08/22/2022 8:31 AM CDT Respiratory Rule Out - RPA 08/21/2022 08/21/2022 0 08/22/2022 3:21 PM CDT COVID - 19 04/18/2023 04/18/2023 04/28/2023 12:1 6 AM OPS ANALYST COVID - 19 07/13/2023 07/13/2023 07/23/2023 12:1 6 AM OPS ANALYST Respiratory Rule Out - RPA 03/17/2024 03/17/2024 1 3:36 PM CDT COVID - 19 04/27/2024 04/27/2024 04/27/2024 2:19 PM OPS ANALYST Assessment Noted Time PHQ-9 Depression Total Score: 0 02/04/20 21 11:12 AM CDT documented as of this encounter Care Teams Manager Behavior Relationship Specialty Start Date End Date Keith Craft MD PCP - General Family Medicine 01/14/19 12/26/23 Liz Capellan DO [address] [address] PCP - General Family Medicine 12/27/23 Quang Locke DO Gastroenterology 01/18/16 Bri Rollins RN [place] Messaging Architect 03/07/21 05/22/23 [place] [address] [address] 05/25/21 Bri Rollins RN [place] Nurse Messaging Architect 03/07/21 05/23/23 Werner Swift MD #2 [place] [address] Consulting Physician Pulmonary Disease 01/30/22 documented as of this encounter
--- OUTSIDE RECORDS SUMMARY | 2024-07-10 13:42 | XMS_ITS | Encounter Summary ---
Author Organization [facility] Address [address] [place] [address] Phone Care Team Providers Care Cattle Farmer Name Role Phone Quang Locke Unavailable [phone] Keith Craft MD Primary Care Provider [phone] Bri Rollins RN Unavailable Unavailable Silvio Schulte MD Unavailable [phone] Bri Rollins RN Unavailable Unavailable Werner Swift MD Unavailable Liz Capellan DO Primary Care Provider [phone] Reason for Visit * Reason Comments Medication Refill Encounter Details Date Type Department Care Team (Late st Contact Info) Description 10/30/2022 Refill [facility] #2 [place] [address] Keith Craft MD #1 [place] [address] Medication Refill Social History Tobacco Use Types [...] suspected to have Coronavirus/COVID-19? No / Unsure 10/25/2022 1:03 PM CDT documented as of this encounter Miscellaneous Notes * Telephone Encounter - Gloria Cornejo RN - 10/30/2022 3:41 PM CDT PDMP 10/02/22 Medication failed the protocol, provider to review and approve the medication order if appropriate. Requested Prescriptions Pending Prescriptions Disp Refills Movantik 25 MG Tablet [Pharmacy Med Name: MOVANTIK 25MG TABLET] 30 Tablet 3 Sig: TAKE ONE (1) TABLET BY MOUTH EVERY MORNING (BEFORE BREAKFAST). Not Delegated - Naloxone Protocol Failed - 10/30/2022 10:13 AM Failed - This refill cannot be delegated Passed - Visit with relevant provider in past 12 months or upcoming 90 days Recent Visits Date Type Provider Dept 09/10/22 Office Visit Keith Craft MD [facility] 07/18/22 Office Visit Kerri Kauffman, QUICK MIXER OPERATOR, HELP DESK CONSULTANT [facility] 06/07/22 Office Visit Keith Craft MD [facility] 03/02/22 Procedure Visit [facility] 03/02/22 Office Visit Keith Craft MD [facility] 11/03/21 Office Visit Keith Craft MD [facility] Showing recent visits within past 365 days and meeting all other requirements Future Appointments Date Type Provider Dept 12/10/22 Appointment Keith Craft MD [facility] Showing future appointments within next 90 days and meeting all other requirements HYDROcodone-acetaminophen (NORCO) 7.5-325 MG Tablet [Pharmacy Med Name: HYDROCODONE/ACETAMINOPHEN 7.5-325 TABLET] 60 Tablet 0 Sig: TAKE ONE (1) TABLET BY MOUTH TWO (2) TIMES DAILY NEEDED FOR SEVERE PAIN. Not Delegated - Opioid Combinations Protocol Failed - 10/30/2022 10:13 AM Failed - This refill cannot be delegated Passed - Visit with relevant provider in past 12 months or upcoming 90 days Recent Visits Date Type Provider Dept 09/10/22 Office Visit Keith Craft MD [facility] 07/18/22 Office Visit Kerri Kauffman, QUICK MIXER OPERATOR, HELP DESK CONSULTANT [facility] 06/07/22 Office Visit Keith Craft MD [facility] 03/02/22 Procedure Visit [facility] 03/02/22 Office Visit Keith Craft MD [facility] 11/03/21 Office Visit Keith Craft MD [facility] Showing recent visits within past 365 days and meeting all other requirements Future Appointments Date Type Provider Dept 12/10/22 Appointment Keith Craft MD [facility] Showing future appointments within next 90 days and meeting all other requirements diazePAM (VALIUM) 5 MG Tablet [Pharmacy Med Name: DIAZEPAM 5MG TABLET] 30 Tablet 0 Sig: TAKE ONE (1) TABLET BY MOUTH DAILY NEEDED FOR ANXIETY. Not Delegated - Benzodiazepines Protocol Failed - 10/30/2022 10:13 AM Failed - This refill cannot be delegated Passed - Visit with relevant provider in past 12 months or upcoming 90 days Recent Visits Date Type Provider Dept 09/10/22 Office Visit Keith Craft MD [facility] 07/18/22 Office Visit Kerri Kauffman, QUICK MIXER OPERATOR, HELP DESK CONSULTANT [facility] 06/07/22 Office Visit Keith Craft MD [facility] 03/02/22 Procedure Visit [facility] 03/02/22 Office Visit Keith Craft MD [facility] 11/03/21 Office Visit Keith Craft MD [facility] Showing recent visits within past 365 days and meeting all other requirements Future Appointments Date Type Provider Dept 12/10/22 Appointment Keith Craft MD [facility] Showing future appointments within next 90 days and meeting all other requirements documented in this encounter Plan of Treatment Upcoming Encounters Date Type Department Care Team (Late st Contact Info) Description 07/13/2024 1:30 PM WIRE FRAME LAMP SHADE MAKER Office Visit [facility] Family Medicine - [place] [address] [place] [address] Liz Capellan, DO [address] [address] 07/20/2024 2:15 PM WIRE FRAME LAMP SHADE MAKER Office Visit [facility] - Endocrinology - [place] [address] [place] [address] Ana Vivar, QUICK MIXER OPERATOR, HELP DESK CONSULTANT 2 [facility] [address] [place] [address] Yasmin Restrepo MD #[address] [address] 07/31/2024 1:00 PM WIRE FRAME LAMP SHADE MAKER Appointment [facility] [address] [place] [address] Werner Swift MD #2 [place] [address] Discharge Disposition: Discharged to home or Selfcare 08/03/2024 1:15 PM CDT [facility] - [place] [address] [place] [address] Werner Swift MD #2 [place] [address] 09/02/2024 2:00 PM CDT Appointment [facility] Res[facility] 1 [place] [address] Werner Swift MD #2 [place] [address] Discharge Disposition: Discharged to home or Selfcare 10/09/2024 2:30 PM CDT Office Visit [facility] - Family [facility] #2 [place] [address] Liz Capellan, DO [address] [address] documented as of this encounter Goals Goal [...] Zones/Action plan education. I will notify my District Leader if my symptoms fall in the y [...] 19 04/18/2023 04/18/2023 04/28/2023 12:1 6 AM WIRE FRAME LAMP SHADE MAKER COVID - 19 07/13/2023 07/13/2023 07/23/2023 12:1 6 AM WIRE FRAME LAMP SHADE MAKER Respiratory Rule Out - RPA 03/17/2024 03/17/2024 1 3:36 PM CDT COVID - 19 04/27/2024 04/27/2024 04/27/2024 2:19 PM WIRE FRAME LAMP SHADE MAKER Assessment Noted Time PHQ-9 Depression Total Score: 1 03/07/20 21 10:29 AM CDT documented as of this encounter Care Teams Cattle Farmer Relationship Specialty Start Date End Date Keith Craft MD PCP - General Family Medicine 01/14/19 12/26/23 Liz Capellan DO [address] [address] PCP - General Family Medicine 12/27/23 Quang Locke DO Gastroenterology 01/18/16 Bri Rollins RN [place] District Leader 03/07/21 05/22/23 [place] [address] [address] 05/25/21 Bri Rollins, KATEY [place] Nurse District Leader 03/07/21 05/23/23 Werner Swift MD #2 [place] [address] Consulting Physician Pulmonary Disease 01/30/22 documented as of this encounter
--- OUTSIDE RECORDS SUMMARY | 2024-07-10 13:42 | XMS_ITS | Encounter Summary ---
Author Organization [facility] Address [address] [place] [address] Phone Care Team Providers Care Brush Clearing Laborer Name Role Phone Quang Locke Unavailable Keith Craft MD Primary Care Provider [phone] Bri Rollins RN Unavailable Unavailable Silvio Scuhlte MD Unavailable [phone] Bri Rollins RN Unavailable Unavailable Werner Swift MD Unavailable Liz Capellan DO Primary Care Provider [phone] Reason for Visit * Reason Comments Medication Refill Encounter Details Date Type Department Care Team (Late st Contact Info) Description 04/16/2021 Refill [facility] #2 [place] [address] Keith Craft MD [address]1 [place] [address] Medication Refill Social History Tobacco Use Types Packs/Day Years Used Date Smoking Tobacco: Former Cigarettes 2 50 1 - 03/16/2018 Smokeless Tobacco: Never Comments:Still uses nictoine patches and gum Alcohol Use Standard Drinks/Week Comments No 0 (1 standard drink = 0.6 oz pur e alcohol) PHQ-2 Answer Date Recorded Total Score - Questions 1-9 1 02/24 Sexually Active Control Partners Comments Not Currently [...] have Coronavirus / COVID-19? No / Unsure 04/18/2021 1:18 PM COMMERCIAL REAL ESTATE APPRAISER documented as of this encounter Miscellaneous Notes * Telephone Encounter - Gloria Cornejo RN - 04/17/2021 11:34 AM CST 90 days supply filled at [facility] 03/29/21 ERCIAL REAL ESTATE APPRAISER documented in this encounter Plan of Treatment Upcoming Encounters Date Type Department Care Team (Late st Contact Info) Description 07/13/2024 1:30 PM COMMERCIAL REAL ESTATE APPRAISER Office Visit [facility] Medical Group - Family Medicine [facility] [address] [place] [address] Liz Capellan L, DO [address] [address] 07/20/2024 2:15 PM COMMERCIAL REAL ESTATE APPRAISER Office Visit [facility] Medical Group - Endocrinology - [place] #2 [place] [address] Ana Vivar, HARNESS RIGGER, MANIFEST/ORDER ORGANIZER PRINT ORDERS 2 [facility] [address] [place] [address] Yasmin Restrepo MD #[address] [phone] 07/31/2024 1:00 PM COMMERCIAL REAL ESTATE APPRAISER Appointment [facility] [address] [place] [address] Werner Swift MD #2 [place] [address] Discharge Disposition: Discharged to home or Selfcare 08/03/2024 1:15 PM CDT Office Visit [facility] - Pulmonology & Sleep Medicine [facility] #2 [place] [address] Werner Swift MD #2 [place] [address] 09/02/2024 2:00 PM CDT [facility] 1 [place] [address] Werner Swift MD #2 [place] [address] Discharge Disposition: Discharged to home or Selfcare 10/09/2024 2:30 PM CDT Office Visit [facility] Medical [facility] - Family Medicine [facility] [address]2 [place] [address] Liz Capellan, DO [address] [address] documented as of this encounter Goals Goal [...] Zones/Action plan education. I will notify my Rooming House Operator if my symptoms fall in the [...] - 19 07/23/2021 07/23/2021 07/24/2021 6:31 AM COMMERCIAL REAL ESTATE APPRAISER COVID - 19 10/19/2021 10/19/2021 10/20/2021 7:45 AM CDT Respiratory Rule Out - RPA 10/19/2021 10/19/2021 0 10/20/2021 2:10 PM CDT Stenotrophomonas maltophilia Comment:Must have a follow up respiratory sample to remove isolation flag. 10/20/2021 10/20/2021 COVID - 19 04/20/2022 04/20/2022 04/30/2022 12:1 8 AM COMMERCIAL REAL ESTATE APPRAISER COVID - 19 07/18/2022 07/18/2022 07/28/2022 12:1 6 AM COMMERCIAL REAL ESTATE APPRAISER COVID - 19 08/21/2022 08/21/2022 08/22/2022 8:31 AM CDT Respiratory Rule Out - RPA 08/21/2022 08/21/2022 0 08/22/2022 3:21 PM CDT COVID - 19 04/18/2023 04/18/2023 04/28/2023 12:1 6 AM COMMERCIAL REAL ESTATE APPRAISER COVID - 19 07/13/2023 07/13/2023 07/23/2023 12:1 6 AM COMMERCIAL REAL ESTATE APPRAISER Respiratory Rule Out - RPA 03/17/2024 03/17/2024 1 3:36 PM CDT COVID - 19 04/27/2024 04/27/2024 04/27/2024 2:19 PM COMMERCIAL REAL ESTATE APPRAISER Assessment Noted Time PHQ-9 Depression Total Score: 1 03/07/20 10:29 AM CDT documented as of this encounter Care Teams Brush Clearing Laborer Relationship Specialty Start Date End Date Keith Craft MD PCP - General Family Medicine 01/14/19 12/26/23 Liz Capellan DO [address] [address] PCP - General Family Medicine 12/27/23 Quang Locke DO Gastroenterology 01/18/16 Bri Rollins, RN [place] Rooming House Operator 03/07/21 05/22/23 [place] [address] [address] 05/25/21 Bri Rollins, RN [place] Nurse Rooming House Operator 03/07/21 05/23/23 Werner Swift MD #2 [place] [address] Consulting Physician Pulmonary Disease 01/30/22 documented as of this encounter
--- OUTSIDE RECORDS SUMMARY | 2024-07-10 13:42 | XMS_ITS | Encounter Summary ---
Author Organization [facility] Address [address] [place] [address] Phone Care Team Providers Care Oxyacetylene Cutter Name Role Phone Quang Locke Unavailable [phone] Silvio Schulte MD Unavailable [phone] Werner Swift MD Unavailable Liz Capellan DO Primary Care Provider [phone] Reason for Visit * Reason Onset Date Comments Advice Only 07/09/2024 Cough 07/09/2024 Encounter Details Date Type Department Care Team (Late st Contact Info) Description 07/09/2024 [facility] [address] [place] [address] Liz Capellan DO [address] [address] Advice Only; Cough Social History Tobacco Use Types Packs/Day Years Used Date Smoking Tobacco: Former Cigarettes 2 50 1 - 03/16/2018 Smokeless Tobacco: Never Comments:Still uses nictoine patches and gum Alcohol Use Standard Drinks/Week Comments No 0 (1 standard drink = 0.6 oz pur e alcohol) [facility] Utilities Answer Date Recorded In [...] declined 04/27/2024 How often do you attend yazidism or hinduism serv ices? Patient declined 04/27/2024 Do you [...] Total Score - Questions 1-9 4 10/25 [facility] [place] of Occupat ional Health - Occupational Stress [...] place to sleep or slept in a jail (including now)? No 07/13/2023 Housing Stability Vital [...] [facility] in the [facility] were you homeless or living in a jail (including now)? Patient declined 04/27/2024 Education Answer [...] encounter Miscellaneous Notes * Telephone Encounter - Adrianna Solitario RN - 07/09/2024 9:23 AM FIRE LIEUTENANT MARINE SITUATION: Cough BACKGROUND: Patient contacting PCP office. Symptoms started about a week ago Per chart review, CURLY 05/11/24, Dr. Swift gave the patient a script for prednisone 5 mg about a month ago with refills. Patient refilled the script and is currently taking it once a day. ASSESSMENT: Symptom Description / Location: Patient reports that she has a productive cough with white to yellow. Denies difficulty breathing or chest pain. Patient is also having sinus congestion with a lot drainage (not sure of color). Patient has CAD, COPD. Patient states is able to feel the congestion in her chest. States is having wheezing. Cough is worse at night. Patient is not currently using her oxygen. Pain: Caller denies pain. Fever: Denies fever. Treatment / Response: Tylenol sinus, Mucinex with some relief. RECOMMENDATION: Caller understands recommendation, but refuses disposition and is requesting provider to send in anantibiotic to the pharmacy. Verified correct pharmacy is in the chart. Patient has an upcoming appointment in office on Saturday. Care advice provided per triage guideline. Caller verbalized understanding. If needing to talk to patient please call [phone] Encounter routed to provider high priority to notify. Please send [employer] message with provider advice on recommendations. Discussed utilizing 1SDK to: discuss if they would prefer a [employer] message or phone call response - See care advice and disposition for Guideline. First positive answer recorded, all responses to prior questions were negative. If symptoms increase, change or if new symptoms develop, call your health care provider or call back. Recommendations were based on caller information and is not a diagnosis. Verified and reviewed all triage information with caller. Reason for Disposition Wheezing is present Protocols used: Cough-A-OH LIEUTENANT MARINE * Telephone Encounter - Becca Stoll - 07/09/2024 9:22 AM CST Symptom: Cough Outcome: Transfer to kapok machine operator queue Reason: Wheezing (high-pitched whistling sound) The caller accepted this outcome. Caller Denied: * Struggling for each breath (severe trouble breathing) * Choked on something LIEUTENANT MARINE documented in this encounter Plan of Treatment Upcoming Encounters Date Type Department Care Team (Late st Contact Info) Description 07/13/2024 1:30 PM FIRE LIEUTENANT MARINE [facility] #2 [facility] [place] [address] Liz Capellan, DO 2 [facility] [address] [place] [address] 07/20/2024 2:15 PM FIRE LIEUTENANT MARINE [facility] #2 [facility] [place] [address] Ana Vivar N, CASKET ASSEMBLER, SOLICITOR PATENT 2 [facility] [address] [place] [address] Yasmin Restrepo MD #[address] [address] 07/31/2024 1:00 PM FIRE LIEUTENANT MARINE [facility] [address] [place] [address] Werner Swift MD #2 [place] [address] Discharge Disposition: Discharged to home or Selfcare 08/03/2024 1:15 PM CDT [facility] #2 [place] [address] Werner Swift MD #2 [place] [address] 09/02/2024 2:00 PM CDT [facility] 1 [place] [address] Werner Swift MD #2 [place] [address] Discharge Disposition: Discharged to home or Selfcare 10/09/2024 2:30 PM CDT Office Visit [facility] Medical Group - Family [facility] #2 [place] [address] Liz Capellan, DO [address] [address] documented as of this encounter Goals Goal [...] Zones/Action plan education. I will notify my Mold Maker Plaster if my symptoms fall in the y [...] documented as of this encounter Care Teams Oxyacetylene Cutter Relationship Specialty Start Date End Date Liz Capellan DO [address] [address] PCP - General Family Medicine 12/27/23 Quang Locke DO Gastroenterology 01/18/16 [place] [address] [address] 05/25/21 Werner Swift MD #2 [place] [address] Consulting Physician Pulmonary Disease 01/30/22 documented as of this encounter
--- OUTSIDE RECORDS SUMMARY | 2024-07-10 13:42 | XMS_ITS | Encounter Summary ---
Author Organization [facility] Address [address] [place] [address] Phone Care Team Providers Care Manager Recovery Name Role Phone Quang Locke Unavailable [phone] Keith Craft MD Primary Care Provider [phone] Bri Rollins RN Unavailable Unavailable Silvio Schulte MD Unavailable [phone] Bri Rollins RN Unavailable Unavailable Werner Swift MD Unavailable Liz Capellan DO Primary Care Provider [phone] Reason for Visit * Reason Comments Medication Refill Encounter Details Date Type Department Care Team (Late st Contact Info) Description 03/23/2021 Refill [facility] #2 [place] [address] Keith Craft MD #1 [place] [address] Medication Refill Social History Tobacco Use Types [...] have Coronavirus / COVID-19? No / Unsure 03/23/2021 8:35 AM CDT documented as of this encounter Miscellaneous Notes * Telephone Encounter - Lillian Steiner RN - 03/23/2021 9:33 AM CDT Medication failed the protocol, provider to review and approve the medication order if appropriate. Requested Prescriptions Pending Prescriptions Disp Refills busPIRone (BUSPAR) 5 MG Tablet [Pharmacy Med Name: BUSPIRONE HCL 5 MG TABLET] 90 Tablet 0 Sig: TAKE 1 TABLET BY MOUTH THREE TIMES A DAY Buspirone (6 Month Refill Only) Protocol Failed - 03/23/2021 9:31 AM Failed - Patient has established therapy [...] 182 days and meeting all other requirements Today's Visits Date Type Provider Dept 03/23/21 Office Visit Keith Craft MD [facility] Showing today's visits and meeting all other requirements Future Appointments Date Type Provider Dept 04/14/21 Appointment Keith Craft MD [facility] Showing future appointments within next 90 days and meeting all other requirements Passed - Has an encounter in the past 6 months with a depression or anxiety visit diagnosis documented in this encounter Plan of Treatment Upcoming Encounters Date Type Department Care Team (Late st Contact Info) Description 07/13/2024 1:30 PM FOOD SERVICE UTILITY WORKER Office Visit [facility] Medical [facility] - Family Medicine - [place] #2 [place] [address] Liz Capellan, DO 2 [facility] [address] [place] [address] 07/20/2024 2:15 PM FOOD SERVICE UTILITY WORKER Office Visit [facility] Endocrinology - [place] #2 [facility] [place] [address] Ana Vivar N, ATHLETIC TRAINER, FOREIGN LANGUAGE STENOGRAPHER 2 [facility] [address] [place] [address] Yasmin Restrepo MD #[address] [place] [address] 07/31/2024 1:00 PM FOOD SERVICE UTILITY WORKER [facility] [place] [address] Werner Swift MD #2 [place] [address] Discharge Disposition: Discharged to home or Selfcare 08/03/2024 1:15 PM CDT Office Visit [facility] Pulmonology & Sleep Medicine - [place] #2 [facility] [place] [address] Werner Swift MD #2 [place] [address] 09/02/2024 2:00 PM CDT [facility] 1 [place] [address] Werner Swift MD #2 [place] [address] Discharge Disposition: Discharged to home or Selfcare 10/09/2024 2:30 PM CDT Office Visit [facility] Medical Group - Family [facility] #2 [place] [address] Liz Capellan, DO [address] [address] documented as of this encounter Goals Goal [...] Zones/Action plan education. I will notify my Clinical Trial Coordinator if my symptoms fall in the y [...] - 19 07/23/2021 07/23/2021 07/24/2021 6:31 AM FOOD SERVICE UTILITY WORKER COVID - 19 10/19/2021 10/19/2021 10/20/2021 7:45 AM CDT Respiratory Rule Out - RPA 10/19/2021 10/19/2021 0 10/20/2021 2:10 PM CDT Stenotrophomonas maltophilia Comment:Must have a follow up respiratory sample to remove isolation flag. 10/20/2021 10/20/2021 COVID - 19 04/20/2022 04/20/2022 04/30/2022 12:1 8 AM FOOD SERVICE UTILITY WORKER COVID - 19 07/18/2022 07/18/2022 07/28/2022 12:1 6 AM FOOD SERVICE UTILITY WORKER COVID - 19 08/21/2022 08/21/2022 08/22/2022 8:31 AM CDT Respiratory Rule Out - RPA 08/21/2022 08/21/2022 0 08/22/2022 3:21 PM CDT COVID - 19 04/18/2023 04/18/2023 04/28/2023 12:1 6 AM FOOD SERVICE UTILITY WORKER COVID - 19 07/13/2023 07/13/2023 07/23/2023 12:1 6 AM FOOD SERVICE UTILITY WORKER Respiratory Rule Out - RPA 03/17/2024 03/17/2024 1 3:36 PM CDT COVID - 19 04/27/2024 04/27/2024 04/27/2024 2:19 PM FOOD SERVICE UTILITY WORKER Assessment Noted Time PHQ-9 Depression Total Score: 1 03/07/20 21 10:29 AM CDT documented as of this encounter Care Teams Manager Recovery Relationship Specialty Start Date End Date Keith Craft MD PCP - General Family Medicine 01/14/19 12/26/23 Liz Capellan DO 2 [facility] [address] [id number] PCP - General Family Medicine 12/27/23 Quang Locke DO Gastroenterology 01/18/16 Bri Rollins, RN [place] Clinical Trial Coordinator 03/07/21 05/22/23 [place] [address] [address] 05/25/21 Bri Rollins, RN [place] Nurse Clinical Trial Coordinator 03/07/21 05/23/23 Werner Swift MD #2 [place] [address] Consulting Physician Pulmonary Disease 01/30/22 documented as of this encounter
--- OUTSIDE RECORDS SUMMARY | 2024-07-10 13:42 | XMS_ITS | Encounter Summary ---
Author Organization [facility] Address [address] [place] [address] Phone Care Team Providers Care Volunteer Services Specialist Name Role Phone Quang oLcke Unavailable Keith Craft MD Primary Care Provider [phone] Bri Rollins RN Unavailable Unavailable Silvio Schulte MD Unavailable [phone] rBi Rollins RN Unavailable Unavailable Werner Swift MD Unavailable Liz Capellan DO Primary Care Provider [phone] Reason for Visit * Reason Comments Medication Refill Encounter Details Date Type Department Care Team (Late st Contact Info) Description 10/01/2022 [facility]ill [facility] #2 [place] [address] Keith Craft MD #1 [place] [address] Medication Refill Social History Tobacco Use Types [...] suspected to have Coronavirus/COVID-19? No / Unsure 09/21/2022 8:21 AM CDT documented as of this encounter Miscellaneous Notes * Telephone Encounter - Gloria Cornejo RN - 10/01/2022 4:12 PM CDT PDMP [place] 09/03/22 - Diazepam 09/03/22 Medication failed the protocol, provider to review and approve the medication order if appropriate. Requested Prescriptions Pending Prescriptions Disp Refills valACYclovir (VALTREX) 500 MG Tablet [Pharmacy Med Name: VALACYCLOVIR HYDROCHLORIDE 500MG TABLET] 90 Tablet 2 Sig: TAKE ONE TABLET BY MOUTH EVERY DAY AT NIGHT Not Delegated - Herpes Agents Protocol Failed - 10/01/2022 9:34 AM Failed - This refill cannot be delegated Passed - Visit with relevant provider in past 12 months or upcoming 90 days Recent Visits Date Type Provider Dept 09/10/22 Office Visit Keith Craft MD [facility] 07/18/22 Office Visit Kerri Kauffman, SHIP CLEANER, FLASHER ADJUSTER [facility] 06/07/22 Office Visit Keith Craft MD [facility] 03/02/22 Procedure Visit [facility] 03/02/22 Office Visit Keith Craft MD [facility] 11/03/21 Office Visit Keith Craft MD [facility] 10/19/21 Office Visit Keith Craft MD [facility] [...] Delegated - Opioid Combinations Protocol Failed - 10/01/2022 9:34 AM Failed - This refill cannot be delegated Passed - Visit with relevant provider in past 12 months or upcoming 90 days Recent Visits Date Type Provider Dept 09/10/22 Office Visit Keith Craft MD [facility] 07/18/22 Office Visit Kerri Kauffman, SHIP CLEANER, FLASHER ADJUSTER [facility] 06/07/22 Office Visit Keith Craft MD [facility] 03/02/22 Procedure Visit [facility] 03/02/22 Office Visit Keith Craft MD [facility] 11/03/21 Office Visit Keith Craft MD [facility] 10/19/21 Office Visit Keith Craft MD [facility] 10/05/21 Office Visit Keith Craft MD [facility] Showing recent visits within past 365 days and meeting all other requirements Future Appointments Date Type Provider Dept 12/10/22 Appointment Keith Craft MD [facility] Showing future appointments within next 90 days and meeting all other requirements gabapentin (NEURONTIN) 800 MG Tablet [Pharmacy Med Name: GABAPENTIN 800MG TABLET] 90 Tablet 3 Sig: TAKE ONE (1) TABLET BY MOUTH THREE (3) TIMES DAILY. Not Delegated - Anticonvulsants Excluding Benzodiazepines Protocol Failed - 10/01/2022 9:34 AM Failed - This refill cannot be delegated Passed - Visit with relevant provider in past 12 months or upcoming 90 days Recent Visits Date Type Provider Dept 09/10/22 Office Visit Keith Craft MD [facility] 07/18/22 Office Visit Kerri Kauffman APRN, FLASHER ADJUSTER [facility] 06/07/22 Office Visit Keith Craft MD [facility] 03/02/22 Procedure Visit [facility] 03/02/22 Office Visit Keith Craft MD [facility] 11/03/21 Office Visit Keith Craft MD [facility] 10/19/21 Office Visit Keith Craft MD [facility] 10/05/21 Office Visit Keith rCaft MD [facility] Showing recent visits within past 365 days and meeting all other requirements Future Appointments Date Type Provider Dept 12/10/22 Appointment Keith Craft MD [facility] Showing future appointments within next 90 days and meeting all other requirements diazePAM (VALIUM) 5 MG Tablet [Pharmacy Med Name: DIAZEPAM 5MG TABLET] 30 Tablet 0 Sig: TAKE ONE (1) TABLET BY MOUTH DAILY NEEDED FOR ANXIETY. Not Delegated - Benzodiazepines Protocol Failed - 10/01/2022 9:34 AM Failed - This refill cannot be delegated Passed - Visit with relevant provider in past 12 months or upcoming 90 days Recent Visits Date Type Provider Dept 09/10/22 Office Visit Keith Craft MD [facility] 07/18/22 Office Visit Kerri Kauffman APRN, FLASHER ADJUSTER [facility] 06/07/22 Office Visit Keith Craft MD [facility] 03/02/22 Procedure Visit [facility] 03/02/22 Office Visit Keith Craft MD [facility] 11/03/21 Office Visit Keith Craft MD [facility] 10/19/21 Office Visit Keith Craft MD [facility] 10/05/21 Office Visit Keith Craft MD [facility] Showing recent visits within past 365 days and meeting all other requirements Future Appointments Date Type Provider Dept 12/10/22 Appointment Keith Craft MD [facility] Showing future appointments within next 90 days and meeting all other requirements documented in this encounter Plan of Treatment Upcoming Encounters Date Type Department Care Team (Late st Contact Info) Description 07/13/2024 1:30 PM ORE CRUSHER Office Visit [facility] - Family Medicine - [place] #2 [facility] [place] [address] Liz Capellan, DO 2 [facility] [address] [place] [address] 07/20/2024 2:15 PM ORE CRUSHER Office Visit [facility] - Endocrinology - [place] #2 [place] [address] Ana Vivar, SHIP CLEANER, FLASHER ADJUSTER [address] [address] Yasmin Restrepo MD #[address] [phone] 07/31/2024 1:00 PM ORE CRUSHER [facility] [address] [place] [address] Werner Swift MD [address]2 [place] [address] Discharge Disposition: Discharged to home or Selfcare 08/03/2024 1:15 PM CDT Office Visit [facility] - Pulmonology & Sleep Medicine - [place] #2 [place] [address] Werner Swift MD #2 [place] [address] 09/02/2024 2:00 PM CDT Appointment [facility] Res[facility] [address] [place] [address] Werner Swift MD #2 [place] [address] Discharge Disposition: Discharged to home or Selfcare 10/09/2024 2:30 PM CDT Office Visit [facility] Family [facility] #2 [place] [address] Liz Capellan, DO [address] [address] documented as of this encounter Goals Goal [...] Zones/Action plan education. I will notify my Whizzer if my symptoms fall in the y [...] 19 04/18/2023 04/18/2023 04/28/2023 12:1 6 AM ORE CRUSHER COVID - 19 07/13/2023 07/13/2023 07/23/2023 12:1 6 AM ORE CRUSHER Respiratory Rule Out - RPA 03/17/2024 03/17/2024 1 3:36 PM CDT COVID - 19 04/27/2024 04/27/2024 04/27/2024 2:19 PM ORE CRUSHER Assessment Noted Time PHQ-9 Depression Total Score: 1 03/07/20 21 10:29 AM CDT documented as of this encounter Care Teams Volunteer Services Specialist Relationship Specialty Start Date End Date Keith Craft MD PCP - General Family Medicine 01/14/19 12/26/23 Liz Capellan DO [address] [address] PCP - General Family Medicine 12/27/23 Quang Locke DO Gastroenterology 01/18/16 Bri Rollins RN [place] [facility] 03/07/21 05/22/23 [place] [id number] [address] 05/25/21 Bri Rollins RN [place] Nurse Whizzer 03/07/21 05/23/23 Werner Swift MD #2 [place] [address] Consulting Physician Pulmonary Disease 01/30/22 documented as of this encounter
--- OUTSIDE RECORDS SUMMARY | 2024-07-10 13:42 | XMS_ITS | Encounter Summary ---
Author Organization [facility] Address [address] [place] [address] Phone Care Team Providers Care Assembly Stock Supervisor Name Role Phone Quang Locke Unavailable [phone] Keith Craft MD Primary Care Provider [phone] Bri Rollins RN Unavailable Unavailable Silvio Schulte MD Unavailable [phone] Bri Rollins RN Unavailable Unavailable Werner Swift MD Unavailable Liz Capellan DO Primary Care Provider [phone] Reason for Visit * Reason Comments Medication Refill Encounter Details Date Type Department Care Team (Late st Contact Info) Description 12/18/2022 Refill [facility] #2 [place] [address] Keith Craft MD [address]1 [place] [address] Medication Refill Social History Tobacco Use Types [...] suspected to have Coronavirus/COVID-19? No / Unsure 12/17/2022 11:37 AM CDT documented as of this encounter Miscellaneous Notes * Telephone Encounter - Gloria Cornejo RN - 12/18/2022 2:01 PM CDT Name from pharmacy: VITAMIN D 12449DMF CAPSULE Will file in chart as: ergocalciferol (VITAMIN D) 69126 UNIT Capsule The original prescription was discontinued on 11/01/2022 by Keith Craft MD documented in this encounter Plan of Treatment Upcoming Encounters Date Type Department Care Team (Late st Contact Info) Description 07/13/2024 1:30 PM DEMENTIA PROGRAM DIRECTOR Office Visit [facility] Medical [facility] - Family Medicine - [place] [address]2 [place] [address] Liz Capellan L, DO [address] [address] 07/20/2024 2:15 PM DEMENTIA PROGRAM DIRECTOR Office Visit [facility] Medical Group - Endocrinology - [place] [address]2 [place] [address] Oehl, Ana N, COURTROOM DEPUTY, GRAPE PRUNER 2 [facility] GUI [facility] [address] [place] [address] Yasmin Restrepo MD [address] [place] [phone] 07/31/2024 1:00 PM DEMENTIA PROGRAM DIRECTOR [facility] [address] [place] [address] Werner wSift MD #2 [place] [address] Discharge Disposition: Discharged to home or Selfcare 08/03/2024 1:15 PM CDT [facility] - [facility]monology & Sleep Medicine [facility] #2 [place] [address] Werner Swift MD #2 [place] [address] 09/02/2024 2:00 PM CDT [facility] [place] [address] Werner Swift MD #2 [place] [address] Discharge Disposition: Discharged to home or Selfcare 10/09/2024 2:30 PM CDT Office Visit [facility] #2 [place] [address] Liz Capellan, DO 2 [facility] JEFFREY [facility] [address] [place] [address] documented as of this encounter Goals Goal [...] Zones/Action plan education. I will notify my Marble Worker if my symptoms fall in the [...] 19 04/18/2023 04/18/2023 04/28/2023 12:1 6 AM DEMENTIA PROGRAM DIRECTOR COVID - 19 07/13/2023 07/13/2023 07/23/2023 12:1 6 AM DEMENTIA PROGRAM DIRECTOR Respiratory Rule Out - RPA 03/17/2024 03/17/2024 1 3:36 PM CDT COVID - 19 04/27/2024 04/27/2024 04/27/2024 2:19 PM DEMENTIA PROGRAM DIRECTOR Assessment Noted Time PHQ-9 Depression Total Score: 1 03/07/20 21 10:29 AM CDT documented as of this encounter Care Teams Assembly Stock Supervisor Relationship Specialty Start Date End Date Keith Craft MD PCP - General Family Medicine 01/14/19 12/26/23 Liz Capellan DO [address] [address] PCP - General Family Medicine 12/27/23 Quang Locke DO Gastroenterology 01/18/16 Bri Rollins, RN [place] Marble Worker 03/07/21 05/22/23 [place] [address] [address] 05/25/21 Bri Rollins, RN [place] Nurse Marble Worker 03/07/21 05/23/23 Werner Swift MD #2 [place] [address] Consulting Physician Pulmonary Disease 01/30/22 documented as of this encounter
--- OUTSIDE RECORDS SUMMARY | 2024-07-10 13:42 | XMS_ITS | Encounter Summary ---
Author Organization [facility] Address [address] [place] [address] Phone Care Team Providers Care Skilled Laborer Name Role Phone Quang Locke DO Unavailable [phone] Keith Craft MD Primary Care Provider [phone] Silvio Schulte MD Unavailable [phone] Werner Swift MD Unavailable Liz Capellan DO Primary Care Provider [phone] Reason for Visit * Reason Comments Medication Refill Encounter Details Date Type Department Care Team (Late st Contact Info) Description 11/11/2023 Refill [facility] #2 [place] [address] Keith Craft MD [address] [place] [address] Medication Refill Social History Tobacco Use Types Packs/Day Years Used Date Smoking Tobacco: Former Cigarettes 2 50 1 - 03/16/2018 Smokeless Tobacco: Never Comments:Still uses nictoine patches and gum Alcohol Use Standard Drinks/Week Comments No 0 (1 standard drink = 0.6 oz pur e alcohol) [facility] Utilities Answer Date Recorded In the past [...] often do you attend chur ch or confucianism services? Never 07/13/2023 Do you belong to any clubs o r organizations such as jainism groups, unions, fraternal or athletic groups, or [...] Total Score - Questions 1-9 4 10/25 [facility] Occupat ional Health - Occupational Stress [...] place to sleep or slept in a care home (including now)? No 07/13/2023 Education Answer [...] Telephone Encounter - Gloria Cornejo RN - 11/11/2023 2:40 PM CDT PDMP 10/15/23 Medication failed the protocol, provider to review and approve the medication order if appropriate. Requested Prescriptions Pending Prescriptions Disp Refills oxyCODONE-acetaminophen (PERCOCET) 5-325 MG Tablet [Pharmacy Med Name: OXYCODONE/ACETAMINOPHEN 5-325MG TABLET] 120 Tablet 0 Sig: TAKE 1 TABLET BY MOUTH EVERY SIX (6) HOURS NEEDED FOR MODERATE OR MORE SEVERE PAIN. Not Delegated - Opioid Combinations Protocol Failed - 11/11/2023 9:16 AM Failed - This refill cannot be delegated Passed - Visit with relevant provider in past 12 months or upcoming 90 days Recent Visits Date Type Provider Dept 11/08/23 Office Visit Brie Denis PAC [facility] [place] 08/15/23 Office Visit Keith [facility] [place] 05/02/23 [facility] 12/10/22 Office Visit Keith Craft, [facility] Showing recent visits within past 365 days and meeting all other requirements Future Appointments Date Type Provider Dept 12/27/23 Appointment Liz Capellan, [facility] Showing future appointments within next 90 days and meeting all other requirements documented in this encounter Plan of Treatment Upcoming Encounters Date Type Department Care Team (Late st Contact Info) Description 07/13/2024 1:30 PM BOX ICER [facility] [place] #2 [place] [address] Liz Capellan, [address] [address] 07/20/2024 2:15 PM BOX ICER [facility] [place] #2 [facility] [place] [address] Ana Vivar, YOUTH CORRECTIONS OFFICER, GARDE MANGER 2 [facility] [address] [place] [address] Yasmin Restrepo MD #[address] [address] 07/31/2024 1:00 PM BOX ICER Appointment [facility] [address] [place] [address] Werner Swift MD #2 [place] [address] Discharge Disposition: Discharged to home or Selfcare 08/03/2024 1:15 PM CDT Office Visit [facility] - Pulmonology & Sleep Medicine [facility] #2 [place] [address] Werner Swift MD #2 [place] [address] 09/02/2024 2:00 PM CDT Appointment [facility] Respiratory Therapy 1 [place] [address] Werner Swift MD #2 [place] [address] Discharge Disposition: Discharged to home or Selfcare 10/09/2024 2:30 PM CDT Office [facility] - Family Medicine [facility] #2 [place] [address] Liz Capellan, DO [address] [address] documented as of this encounter Goals Goal [...] Zones/Action plan education. I will notify my Food Taster if my symptoms fall in the y ellow zone . I will consider receiving an influenza and pneumonia vaccination, if applicable. -I will call the office if I experience any symptoms listed above to discuss at home management options. documented as of this encounter Visit Diagnoses Diagnosis Chronic prescription opiate use Chronic low back pain, unspecified back pain laterality, unspecified whether sciatica present documented in this encounter Additional Health Concerns Infection Onset Date Last Indicated Resolved Time Stenotrophomonas maltophilia Comment:Must have a follow up respiratory sample to remove isolation flag. 10/20/2021 10/20/2021 Respiratory Rule Out - RPA 03/17/2024 03/17/2024 1 3:36 PM CDT COVID - 19 04/27/2024 04/27/2024 04/27/2024 2:19 PM BOX ICER Assessment Noted Time PHQ-9 Depression Total Score: 4 11/08/19 24 9:33 AM CDT documented as of this encounter Care Teams Skilled Laborer Relationship Specialty Start Date End Date Keith Craft MD PCP - General Family Medicine 01/14/19 12/26/23 Liz Capellan DO [address] [address] PCP - General Family Medicine 12/27/23 Quang Locke DO Gastroenterology 01/18/16 [place] [address] [address] 05/25/21 Werner Swift MD #[address] [place] [address] Consulting Physician Pulmonary Disease 01/30/22 documented as of this encounter
--- OUTSIDE RECORDS SUMMARY | 2024-07-10 13:42 | XMS_ITS | Clinical Summary ---
Author Organization [facility] Address [address] [place] [address] Care Team Providers Care Probation Worker Name Role Phone Keith Craft MD Primary Care Provider [phone] Luis F Frausto MD Unavailable [phone] Allergies Active Allergy Reactions Criticality Noted Date [...] (08/23/2021): Added automatically from request for surgery [id number] Influenza A 06/16/2017 Cardiomyopathy 06/16/2017 Septicemia 06/16/2017 Anxiety 06/16/2017 Chronic obstructive pulmonar y disease with acute exacerbation 05/21/2017 Encounters Date Type Department Care Team Description 06/10/2024 2:45 PM ENGAGEMENT QUALITY CONSULTANT Lab [address] [address] from Last 3 Months Surgical History Surgery Date Site/Laterality Comments HIP ARTHROPLASTY Hip replacement TUBAL LIGATION HYSTERECTOMY JOINT REPLACEMENT Right hip replacement WRIST FRACTURE SURGERY Right with hardware COLONOSCOPY ESOPHAGOGASTRODUODENOSCOPY SPINE SURGERY Medical History Medical History Date Comments Hx Other Medical Heart Failure; Comments: EMELIA 08/09/2016 - Hx Other Medical Abnormal Heart Beat; Comments: EMELIA 08/09/2016 - Hx Other Medical Emphysema; Comm ents: EMELIA 08/09/2016 - Diabetes mellitus (HCC) Diabetes mellitus; Comments: EMELIA 08/09/2016 - Depression Depression Hx Other Medical Gastric Reflux; Comments: EMELIA 08/09/2016 - COPD (chronic obstructive pu lmonary disease) (HCC) GERD (gastroesophageal reflux disease) Type 2 diabetes mellitus (HCC) PONV (postoperative nausea and vomiting) PVC (premature ventricular contraction) Hyperlipidemia CHF (congestive heart failur e) (CMS/HCC) (HCC) Emphysema of lung (HCC) Hypothyroidism Arthritis Fatty liver Chronic kidney disease Family History Medical History Relation Name Comments Diabetes Mother Heart failure Mother COPD Sister Heart failure Sister Relation Name Status Comments Father Mother Sister Social History Tobacco Use Types Packs/Day Years [...] on file Legal Sex Female 5:46 PM ENGAGEMENT QUALITY CONSULTANT Gender Identity Not on file Sexual Orientation Not on file Obstetrics History Last Filed Vital Signs Vital Sign Reading [...] 02/15/2023 1:50 PM CDT Plan of Treatment Health Maintenance Due Date Last Done Comments Depression Screening 1950 Hepatitis C Screening 1950 Hepatitis B Screening 09/19/1967 Well Visit 65+ 2014 DTaP/Tdap/Td Vaccine (2 - Td or Tdap) 02/01/2020 01/31/2010 Colon Cancer Screening-Colonoscopy 02/24/2020 02/23/2010 Fall Risk Assessment 09/13/2022 09/13/2021 Covid-19 Vaccine (5 - 4-2 5 season) 2024 09/07/2021, 03/22/2021, 07/30/2020, Additional history exists Breast Cancer Screening-Mammogram 02/27/2024 02/26/2023, 02/26/2023, 11/28/2021, Additional history exists Osteoporosis Screening-Bone Density Scan 04/03/2024 04/03/2022, 04/03/2022 Colon Cancer Screening-CT Colonography Discontinued 02/23/2010 Colon Cancer Screening-DNA Stool Discontinued 02/24/20 Colon Cancer Screening-FIT Discontinued 02/23/2010 Colon Cancer Screening-Sigmoidoscopy Discontinued 02/23/2010 Zoster Vaccine Completed 02/03/2019, 02/19/2018 Pneumococcal vaccine 65+ Completed 019, 02/20/2018, 11/24/2014 Influenza Vaccine Completed 03/03/2024, , 01/18/2021, Additional history exists Medical Devices Implanted Type Area Technical Services Coordinator Device Identifier Shelf Expiration Date Model / [...] CDT PROCEDURE REPORT Patient: KARY CORONADO Account: [id number] Room No: : 1950 Patient Type: [facility] Attend.: Jass Huang M.D. Admit Date: 02/23/2010 Dict.: Jass Huang M.D. Disch. Date: NAME OF PROCEDURE: Colonoscopy. HISTORY OF PRESENT ILLNESS This is a 59-year-old female who presents for screening colonoscopy. PHYSICAL EXAMINATION Well developed female. Lungs are clear. Cardiovascular exam isunremarkable. PROCEDURE: Colonoscopy was performed with the Fujinon video endoscope. The patientwas premedicated by anesthesia. [...] MD On 02/27/2010 08:10:11 AM Historical Provider ENDOSCOPY PROCEDURES Loren l Result from Last 3 Months or Most Recently Relevant to Health Maintenance Insurance [facility]ICARE [facility] Address: [address] [address] [place] [address] [facility] [place] Advance Directives For more information, please contact: [phone] * Full Code (Latest Code Status on File) Date Activated Date Inactivated Comments 05/17/2017 9:28 PM 05/21/2017 8:00 PM Care Teams Probation Worker Relationship Specialty Start Date End Date Keith Craft MD [address] [address] PCP - General 02/05/21 Luis F Frausto MD [facility] [address] [address] Consulting Physician Interventional Cardiology 09/13/21
--- OUTSIDE RECORDS SUMMARY | 2024-07-10 13:42 | XMS_ITS | Encounter Summary ---
Author Organization [facility] Address [address] [place] [address] Phone Care Team Providers Care Straw Hat Brim Cutter Operator Name Role Phone Quang Locke Unavailable Keith Craft MD Primary Care Provider [phone] Bri Rollins RN Unavailable Unavailable Silvio Schulte MD Unavailable [phone] Bri Rollins RN Unavailable Unavailable Werner Swift MD Unavailable Liz Capellan DO Primary Care Provider [phone] Reason for Visit * Reason Comments Medication Refill Encounter Details Date Type Department Care Team (Late st Contact Info) Description 04/11/2021 Refill [facility] #2 [place] [address] Keith Craft MD [address]1 [place] [address] Medication Refill Social History Tobacco Use Types [...] have Coronavirus / COVID-19? No / Unsure 04/14/2021 1:20 PM SHAFT SINKER documented as of this encounter Miscellaneous Notes * Telephone Encounter - Gloria Cornejo RN - 04/11/2021 11:33 AM CST [place] PD[place] 03/13/21 for both - diazepam discontinued 03/23/21 Medication failed the protocol, provider to review and approve the medication order if appropriate. Requested Prescriptions Pending Prescriptions Disp Refills HYDROcodone-acetaminophen (NORCO) 7.5-325 MG Tablet [Pharmacy Med Name: HYDROCODON-APAP 7.5-325 7.5-325 Tablet] 30 Tablet 0 Sig: Take 1 Tablet by mouth daily as needed for Moderate or more severe pain. [facility] Not Delegated - Analgesics: Opioid Agonist Combinations Failed - 04/11/2021 11:33 AM Failed - This refill cannot be delegated Passed - Valid encounter within last 6 months Past Office Visits Recent Outpatient Visits 2 weeks ago Acute bronchitis, unspecified organism [facility] Family [facility] - Keith Jenkins MD 2 months ago Pneumonia of right lower lobe due to infectious organism [facility] - Keith Jenkins MD 2 months ago Type 2 diabetes mellitus with diabetic neuropathy, with long-term current use of insulin (HCC) [facility] Family [facility] - Brie Castano PAC 2 months ago Chronic low back pain, unspecified back pain laterality, unspecified whether sciatica present [facility] - Keith Jenkins MD 6 months ago Pneumonia of right upper lobe due to infectious organism [facility] Upcoming Appointments Future Appointments In 3 days Keith Craft MD [facility] - [place], [facility] PEER SUPPORT SPECIALIST - Recent and Past Visits Recent Visits Date Type Provider Dept 03/23/21 Office Visit Keith Craft, [facility] 02/07/21 Office Visit Keith Craft MD [facility] 02/03/21 Office Visit [facility], [facility] 01/12/21 [facility]/12[facility]20 [facility] 10/04/20 Office Visit Keith Craft MD [facility] 06/07/20 [facility] 04/25/20 Office Visit Keith Craft MD [facility] 02/02/20 [facility] Show[facility] recent visits within past 460 days with a meds authorizing provider and meeting all other requirements Future Appointments Date Type Provider Dept 04/14/21 Appointment Keith Craft MD [facility] [place] Showing future appointments within next 90 days with a meds authorizing provider and meeting all other requirements diazePAM (VALIUM) 10 MG Tablet [Pharmacy Med Name: DIAZEPAM 10 MG TAB 10 Tablet] 30 Tablet 0 Sig: Take 1 Tablet by mouth daily. There is no refill protocol information for this order T SINKER documented in this encounter Plan of Treatment Upcoming Encounters Date Type Department Care Team (Late st Contact Info) Description 07/13/2024 1:30 PM SHAFT SINKER [facility] [place] [address] Liz Capellan, DO 2 [facility] [address] [address] 07/20/2024 2:15 PM SHAFT SINKER Office Visit [facility] - Endocrinology [facility] [address]2 [place] [address] Ana Vivar, DRY KILN BURNER, ONLINE ADVERTISING DIRECTOR 2 [facility]. [address] [place] [address] Yasmin Restrepo MD #[address] [address] 07/31/2024 1:00 PM SHAFT SINKER [facility] [address] [place] [address] Werner Swift MD [address]2 [place] [address] Discharge Disposition: Discharged to home or Selfcare 08/03/2024 1:15 PM CDT Office Visit [facility] Medical [facility] - Pulmonology & Sleep Medicine [facility] [address]2 [place] [address] Werner Swift MD #2 [place] [address] 09/02/2024 2:00 PM CDT [facility] 1 [place] [address] Werner Swift MD [address]2 [place] [address] Discharge Disposition: Discharged to home or Selfcare 10/09/2024 2:30 PM CDT [facility] Visit [facility] [address]2 [place] [address] Liz Capellan, DO 2 [facility] [place] [address] documented as of this encounter Goals Goal [...] Zones/Action plan education. I will notify my Superintendent Transmission if my symptoms fall in the y [...] - 19 07/23/2021 07/23/2021 07/24/2021 6:31 AM SHAFT SINKER COVID - 19 10/19/2021 10/19/2021 10/20/2021 7:45 AM CDT Respiratory Rule Out - RPA 10/19/2021 10/19/2021 0 10/20/2021 2:10 PM CDT Stenotrophomonas maltophilia Comment:Must have a follow up respiratory sample to remove isolation flag. 10/20/2021 10/20/2021 COVID - 19 04/20/2022 04/20/2022 04/30/2022 12:1 8 AM SHAFT SINKER COVID - 19 07/18/2022 07/18/2022 07/28/2022 12:1 6 AM SHAFT SINKER COVID - 19 08/21/2022 08/21/2022 08/22/2022 8:31 AM CDT Respiratory Rule Out - RPA 08/21/2022 08/21/2022 0 08/22/2022 3:21 PM CDT COVID - 19 04/18/2023 04/18/2023 04/28/2023 12:1 6 AM SHAFT SINKER COVID - 19 07/13/2023 07/13/2023 07/23/2023 12:1 6 AM SHAFT SINKER Respiratory Rule Out - RPA 03/17/2024 03/17/2024 1 3:36 PM CDT COVID - 19 04/27/2024 04/27/2024 04/27/2024 2:19 PM SHAFT SINKER Assessment Noted Time PHQ-9 Depression Total Score: 1 03/07/20 21 10:29 AM CDT documented as of this encounter Care Teams Straw Hat Brim Cutter Operator Relationship Specialty Start Date End Date Keith Craft MD PCP - General Family Medicine 01/14/19 12/26/23 Liz Capellan DO [address] [address] PCP - General Family Medicine 12/27/23 Quang Locke DO Gastroenterology 01/18/16 Bri Rollins RN [place] Superintendent Transmission 03/07/21 05/22/23 [place] [id number] [address] 05/25/21 Bri Rollins RN [place] Nurse Superintendent Transmission 03/07/21 05/23/23 Werner Swift MD #2 [place] [address] Consulting Physician Pulmonary Disease 01/30/22 documented as of this encounter
--- OUTSIDE RECORDS SUMMARY | 2024-07-10 13:42 | XMS_ITS | Encounter Summary ---
Author Organization [facility] Address [address] [place] [address] Phone Care Team Providers Care Rail Car Unloader Name Role Phone Quang Locke DO Unavailable [phone] Keith Craft MD Primary Care Provider [phone] Bri Rollins RN Unavailable Unavailable Silvio Schulte MD Unavailable [phone] Bri Rollins RN Unavailable Unavailable Wernre Swift MD Unavailable Liz Capellan DO Primary Care Provider [phone] Reason for Visit * Reason Onset Date Comments Medication Refill Medication Refill 10/26/2020 Encounter Details Date Type Department Care Team (Late st Contact Info) Description 10/23/2020 Refill [facility] - Family Medicine [facility] [address]2 [place] [address] Keith Craft MD [address] [place] [address] Medication Refill; Medication Refill Social History Tobacco Use Types [...] encounter Miscellaneous Notes * Telephone Encounter - Caryl Marmolejo RN - 10/26/2020 1:52 PM CDT Patient called, stated there was a problem with her nebulizer medication and needed Dr Craft to send a different diagnosis code. Call transferred to med management team * Telephone Encounter - Gloria Cornejo RN - 10/25/2020 2:33 PM CDT Medication failed the protocol, provider to review and approve the medication order if appropriate. Requested Prescriptions Pending Prescriptions Disp Refills theophylline CR, 12 hour, (THEODUR) 300 MG TABLET SR 12 HR [Pharmacy Med Name: THEOPHYLLINE ER 300 MG TAB] 180 Tablet 1 Sig: TAKE 1 TABLET BY MOUTH EVERY 12 HOURS [facility] Pulmonology: Theophyllines Failed - 10/23/2020 9:01 AM Failed - Theophylline (serum) in normal range and within 360 days THEOPHYLLINE Date Value Ref Range Status 07/27/2019 14 10 - 20 mcg/mL Final Passed - Valid encounter within last 12 months Past Office Visits Recent Outpatient Visits 1 week ago Pneumonia of right upper lobe due to infectious organism [facility] - Family Medicine - Keith Jenkins MD 3 weeks ago Hypoglycemia [facility] - Family Medicine - Keith Jenkins MD 4 months ago Mixed hyperlipidemia [facility] Medical [facility] Family [facility] Keith Lemus MD 6 months ago Pneumonia of right upper lobe due to infectious organism [facility] Keith Lemus MD 8 months ago Acute non-recurrent maxillary sinusitis [facility] Keith Lemus MD Upcoming Appointments Future Appointments In [address] Mammography, [facility] In 2 months Keith [facility] MD [facility] VIOLIN TEACHER - Recent and Past Visits Recent Visits [...] [place] 07/27/19 Office Visit [facility] range BP Readings from Last 1 Encounters: 10/12/20 100/58 Xigduo XR 5-1000 MG TABLET SR 24 HR [Pharmacy Med Name: XIGDUO XR 5 MG-1,000 MG TABLET] 180 Tablet 1 Sig: TAKE 1 TABLET BY MOUTH TWICE A DAY SGLT2 Inhibitors-Biguanides Protocol Failed - 10/23/2020 9:01 AM Failed - GFR in normal range Passed - Normal serum creatinine in past 6 months CREATININE, BLOOD Date Value Ref Range Status 10/12/2020 1.00 0.60 - 1.10 mg/dL Final Passed - Visit with relevant [...] requirements Passed - HgA1C on record in past 6 months HGB-A1C Date Value Ref Range Status 10/12/2020 5.5 4.0 - 6.0 % Final [facility] Off-Protocol Failed - 10/23/2020 9:01 AM Failed - Medication not assigned to a protocol, review manually. Passed - Valid encounter within last 12 months Past Office Visits Recent Outpatient Visits 1 week ago Pneumonia of right upper lobe due to infectious organism [facility] - Family Medicine - Keith Jenkins MD 3 weeks ago Hypoglycemia [facility] Medical [facility] Family Medicine Keith Lemus MD 4 months ago Mixed hyperlipidemia [facility] Medical [facility] Family Medicine - Keith Jenkins MD 6 months ago Pneumonia of right upper lobe due to infectious organism [facility] Medical [facility] - Family Medicine Keith Lemus MD 8 months ago Acute non-recurrent maxillary sinusitis [facility] Medical [facility] Family [facility] - Keith Jenkins MD Upcoming Appointments Future Appointments In [address] [facility]ography[facility] In 2 months Keith Craft MD [facility], [facility] VIOLIN TEACHER - Recent and Past Visits Recent Visits [...] st Contact Info) Description 07/13/2024 1:30 PM RADIO PERSONALITY Office Visit [facility] Medical [facility] - Family Medicine - [place] [address] [place] [address] Liz Capellan L, DO [address] [address] 07/20/2024 2:15 PM RADIO PERSONALITY Office Visit [facility] - Endocrinology - [place] [address]2 [place] [address] Ana Vivar, UNDERGROUND DISTRIBUTION ENGINEER, RESHIPPING CLERK [address] [address] Yasmin Restrepo MD #[address] [address] 07/31/2024 1:00 PM RADIO PERSONALITY [facility] [address] [place] [address] Werner Swift MD [address] [place] [address] Discharge Disposition: Discharged to home or Selfcare 08/03/2024 1:15 PM CDT [facility] #2 [place] [address] Werner Swift MD [address] [place] [address] 09/02/2024 2:00 PM CDT [facility] [address] [place] [address] Werner Swift MD [address] [place] [address] Discharge Disposition: Discharged to home or Selfcare 10/09/2024 2:30 PM CDT Office Visit [facility] Family Medicine - [place] [address] [place] [address] Liz Capellan, DO [address] [address] documented as of this encounter Visit Diagnoses [...] - 19 07/23/2021 07/23/2021 07/24/2021 6:31 AM RADIO PERSONALITY COVID - 19 10/19/2021 10/19/2021 10/20/2021 7:45 AM CDT Respiratory Rule Out - RPA 10/19/2021 10/19/2021 0 10/20/2021 2:10 PM CDT Stenotrophomonas maltophilia Comment:Must have a follow up respiratory sample to remove isolation flag. 10/20/2021 10/20/2021 COVID - 19 04/20/2022 04/20/2022 04/30/2022 12:1 8 AM RADIO PERSONALITY COVID - 19 07/18/2022 07/18/2022 07/28/2022 12:1 6 AM RADIO PERSONALITY COVID - 19 08/21/2022 08/21/2022 08/22/2022 8:31 AM CDT Respiratory Rule Out - RPA 08/21/2022 08/21/2022 0 08/22/2022 3:21 PM CDT COVID - 19 04/18/2023 04/18/2023 04/28/2023 12:1 6 AM RADIO PERSONALITY COVID - 19 07/13/2023 07/13/2023 07/23/2023 12:1 6 AM RADIO PERSONALITY Respiratory Rule Out - RPA 03/17/2024 03/17/2024 1 3:36 PM CDT COVID - 19 04/27/2024 04/27/2024 04/27/2024 2:19 PM RADIO PERSONALITY Assessment Noted Time PHQ-9 Depression Total Score: 2 06/07/19 21 2:34 PM RADIO PERSONALITY documented as of this encounter Care Teams Rail Car Unloader Relationship Specialty Start Date End Date Keith Craft MD PCP - General Family Medicine 01/14/19 12/26/23 Liz Capellan DO [address] [address] PCP - General Family Medicine 12/27/23 Quang Locke DO Gastroenterology 01/18/16 Bri Rollins RN [place] Skills Instructor 03/07/21 05/22/23 [place] [id number] [address] 05/25/21 Bri Rollins RN [place] Nurse Skills Instructor 03/07/21 05/23/23 Werner Swift MD #[address] [place] [address] Consulting Physician Pulmonary Disease 01/30/22 documented as of this encounter
--- OUTSIDE RECORDS SUMMARY | 2024-07-10 13:42 | XMS_ITS | Encounter Summary ---
Author Organization [facility] Address [address] [place] [address] Phone Care Team Providers Care Polisher Balance Screwhead Name Role Phone Quang Locke Unavailable [phone] Keith Craft MD Primary Care Provider [phone] Bri Rollins RN Unavailable Unavailable Silvio Schulte MD Unavailable [phone] Bri Rollins RN Unavailable Unavailable Werner Swift MD Unavailable Liz Capellan DO Primary Care Provider [phone] Reason for Visit * Reason Comments Medication Refill Encounter Details Date Type Department Care Team (Late st Contact Info) Description 05/04/2021 Refill [facility] #2 [place] [address] Keith Craft MD [address] [place] [address] Medication Refill Social History Tobacco Use Types [...] have Coronavirus / COVID-19? No / Unsure 05/05/2021 3:02 PM SUPERVISOR FILLING AND PACKING documented as of this encounter Miscellaneous Notes * Telephone Encounter - Gloria Cornejo RN - 05/05/2021 10:59 AM CST Name from pharmacy: DIAZEPAM 10 MG TAB 10 Tablet Will file in chart as: diazePAM (VALIUM) 10 MG Tablet The original prescription was discontinued on 03/23/2021 by Keith Craft MD [employer] documented in this encounter Plan of Treatment Upcoming Encounters Date Type Department Care Team (Late st Contact Info) Description 07/13/2024 1:30 PM SUPERVISOR FILLING AND PACKING Office Visit [facility] - Family Medicine [facility] [address]2 [place] [address] Liz Capellan L, DO [address] [address] 07/20/2024 2:15 PM SUPERVISOR FILLING AND PACKING Office Visit [facility] Medical [facility] - Endocrinology - [place] [address] [place] [address] Ana Vivar, APPIAN BPM DEVELOPER, SERGER [facility] [address] [place] [address] Yasmin Restrepo MD #[address] [address] 07/31/2024 1:00 PM SUPERVISOR FILLING AND PACKING [facility] [address] [place] [address] Werner Swift MD #2 [place] [address] Discharge Disposition: Discharged to home or Selfcare 08/03/2024 1:15 PM CDT [facility] #2 [place] [address] Werner Swift MD #2 [place] [address] 09/02/2024 2:00 PM CDT [facility] Res[facility] [address] [place] [address] Werner Swift MD #2 [place] [address] Discharge Disposition: Discharged to home or Selfcare 10/09/2024 2:30 PM CDT [facility] #2 [place] [address] Liz Capellan, DO [address] [address] documented as of this encounter Goals Goal [...] Zones/Action plan education. I will notify my Donation Worker if my symptoms fall in the [...] - 19 07/23/2021 07/23/2021 07/24/2021 6:31 AM SUPERVISOR FILLING AND PACKING COVID - 19 10/19/2021 10/19/2021 10/20/2021 7:45 AM CDT Respiratory Rule Out - RPA 10/19/2021 10/19/2021 0 10/20/2021 2:10 PM CDT Stenotrophomonas maltophilia Comment:Must have a follow up respiratory sample to remove isolation flag. 10/20/2021 10/20/2021 COVID - 19 04/20/2022 04/20/2022 04/30/2022 12:1 8 AM SUPERVISOR FILLING AND PACKING COVID - 19 07/18/2022 07/18/2022 07/28/2022 12:1 6 AM SUPERVISOR FILLING AND PACKING COVID - 19 08/21/2022 08/21/2022 08/22/2022 8:31 AM CDT Respiratory Rule Out - RPA 08/21/2022 08/21/2022 0 08/22/2022 3:21 PM CDT COVID - 19 04/18/2023 04/18/2023 04/28/2023 12:1 6 AM SUPERVISOR FILLING AND PACKING COVID - 19 07/13/2023 07/13/2023 07/23/2023 12:1 6 AM SUPERVISOR FILLING AND PACKING Respiratory Rule Out - RPA 03/17/2024 03/17/2024 1 3:36 PM CDT COVID - 19 04/27/2024 04/27/2024 04/27/2024 2:19 PM SUPERVISOR FILLING AND PACKING Assessment Noted Time PHQ-9 Depression Total Score: 1 03/07/20 10:29 AM CDT documented as of this encounter Care Teams Polisher Balance Screwhead Relationship Specialty Start Date End Date Keith Craft MD PCP - General Family Medicine 01/14/19 12/26/23 Liz Capellan DO [address] [address] PCP - General Family Medicine 12/27/23 Quang Locke DO Gastroenterology 01/18/16 Bri Rollins RN [place] Donation Worker 03/07/21 05/22/23 [place] [address] [address] 05/25/21 Bri Rollins RN [place] Nurse Donation Worker 03/07/21 05/23/23 Werner Swift MD #[address] [place] [address] Consulting Physician Pulmonary Disease 01/30/22 documented as of this encounter
--- OUTSIDE RECORDS SUMMARY | 2024-07-10 13:42 | XMS_ITS | Encounter Summary ---
Author Organization [facility] Address [address] [place] [address] Phone Care Team Providers Care Shade Matcher Name Role Phone Quang Locke DO Unavailable [phone] Keith Craft MD Primary Care Provider [phone] Silvio Schulte MD Unavailable [phone] Werner Swift MD Unavailable Liz Capellan DO Primary Care Provider [phone] Reason for Visit * Reason Comments Medication Refill Encounter Details Date Type Department Care Team (Late st Contact Info) Description 11/06/2023 [facility]ill [facility] [address] [place] [phone] Keith Craft MD [address] [place] [address] Medication Refill Social History Tobacco Use Types Packs/Day Years Used Date Smoking Tobacco: Former Cigarettes 2 50 1 - 03/16/2018 Smokeless Tobacco: Never Comments:Still uses nictoine patches and gum Alcohol Use Standard Drinks/Week Comments No 0 (1 standard drink = 0.6 oz pur e alcohol) [facility] Utilities Answer Date Recorded In [...] often do you attend chur ch or mandaen services? Never 07/13/2023 Do you belong to any clubs o r organizations such as judaism groups, unions, fraternal or athletic groups, or [...] Total Score - Questions 1-9 4 10/25 [facility] [place] of Occupat ional Health - Occupational Stress [...] a senior living (including now)? No 07/13/2023 Education Answer Date [...] pleasure in doing things Not at all 11/08/2023 9:33 AM ALAINAT Reva Moreno Feeling down, depressed, or hopeless Not at all 11/08/2023 9:33 AM ALAINAT Reva Moreno * Over the past 2 weeks, how often have you been bothered by any of the following problems? Question Answer Date of Assessment Author Patient Health Questionnaire -2 Score 0 11/08/2023 9:33 AM ALAINAT Reva Moreno documented as of this encounter Miscellaneous Notes * Telephone Encounter - Hermilo Macdonald RN - 11/09/2023 9:44 AM CDT SITUATION: Medication problem BACKGROUND: Patient is calling because she is needing her diazepam prescription today. The originalprescription was printed and not escribed to the pharmacy. ASSESSMENT: n/a RECOMMENDATION: Please sign new prescription. Thank you. * Telephone Encounter - Amparo Frankel MA - 11/08/2023 10:09 AM CDT Original script was printed. Resent to pcp to esign * Telephone Encounter - Reyna Reaves RN - 11/06/2023 3:44 PM CDT PDMP 10/08 for 30. Fill date adjusted Medication failed the protocol, provider to review and approve the medication order if appropriate. Requested Prescriptions Pending Prescriptions Disp Refills diazePAM (VALIUM) 5 MG Tablet [Pharmacy Med Name: DIAZEPAM 5MG TABLET] 30 Tablet 0 Sig: TAKE 1 TABLET BY MOUTH DAILY NEEDED FOR ANXIETY Not Delegated - Benzodiazepines Protocol Failed - 11/06/2023 3:27 PM Failed - This refill cannot be delegated Passed - Visit with relevant provider in past 12 months or upcoming 90 days Recent Visits Date Type Provider Dept 08/15/23 Office Visit Keith Craft MD [facility] 05/02/23 Office Visit Keith Craft MD [facility] 04/12/23 Office Visit Keith Craft MD [facility] 12/10/22 Office Visit Keith Craft MD [facility] Showing recent visits within past 365 days and meeting all other requirements Future Appointments Date Type Provider Dept 11/08/23 Appointment Brie Denis, NICOLE Tesfaye Showing future appointments within next 90 days and meeting all other requirements documented in this encounter Plan of Treatment Upcoming Encounters Date Type Department Care Team (Late st Contact Info) Description 07/13/2024 1:30 PM EQUIPMENT DETAILER Office Visit [facility] - Family Medicine - [place] [address] [place] [address] Liz Capellan L, DO 2 [facility] [address] [place] [address] 07/20/2024 2:15 PM EQUIPMENT DETAILER [facility] [place] [address] [place] [phone] Ana Vivar, COMMAND POST CRAFTSMAN, MEDICAL [employer]PS OFFICER 2 [facility] [address] [place] [address] Yasmin Restrepo MD #[address] [phone] 07/31/2024 1:00 PM EQUIPMENT DETAILER [facility] [address] [place] [phone] Werner Swift MD [address] [place] [address] Discharge Disposition: Discharged to home or Selfcare 08/03/2024 1:15 PM CDT Office Visit [facility] - Pulmonology & Sleep Medicine - [place] [address] [place] [address] Werner Swift MD #2 [facility] [address] 09/02/2024 2:00 PM CDT [facility] [address] [place] [address] Werner Swift MD [address] [place] [phone] Discharge Disposition: Discharged to home or Selfcare 10/09/2024 2:30 PM CDT Office Visit [facility] [place] [address] [place] [address] Liz Capellan, DO [address] [facility] [address] [place] [address] documented as of this encounter Goals Goal [...] Zones/Action plan education. I will notify my Cutting And Creasing Press Operator if my symptoms fall in the [...] - 19 04/27/2024 04/27/2024 04/27/2024 2:19 PM EQUIPMENT DETAILER Assessment Noted Time PHQ-9 Depression Total Score: 1 03/07/20 21 10:29 AM CDT documented as of this encounter Care Teams Shade Matcher Relationship Specialty Start Date End Date Keith Craft MD PCP - General Family Medicine 01/14/19 12/26/23 Liz Capellan DO [address] [address] PCP - General Family Medicine 12/27/23 Quang Locke DO Gastroenterology 01/18/16 [place] [id number] [address] 05/25/21 Werner Swift MD [address] [place] [address] Consulting Physician Pulmonary Disease 01/30/22 documented as of this encounter
--- OUTSIDE RECORDS SUMMARY | 2024-07-10 13:42 | XMS_ITS | Encounter Summary ---
Author Organization [facility] Address [address] [place] [address] Phone Care Team Providers Care Derrick Worker Well Service Name Role Phone Quang Locke Unavailable Keith Craft MD Primary Care Provider [phone] Bri Rollins RN Unavailable Unavailable Silvio Schulte MD Unavailable [phone] Bri Rollins RN Unavailable Unavailable Werner Swift MD Unavailable Liz Capellan DO Primary Care Provider [phone] Reason for Visit * Reason Comments Medication Refill Encounter Details Date Type Department Care Team (Late st Contact Info) Description 01/24/2023 Refill [facility] [address] [place] [address] Keith Craft MD [address] [place] [address] Medication Refill Social History Tobacco Use Types [...] suspected to have Coronavirus/COVID-19? No / Unsure 01/02/2023 12:21 PM CDT documented as of this encounter Miscellaneous Notes * Telephone Encounter - Camila Mehta RN - 01/25/2023 12:07 PM CDT Medication failed the protocol, provider to review and approve the medication order if appropriate. Requested Prescriptions Pending Prescriptions Disp Refills ergocalciferol (VITAMIN D) [address]53 UNIT Capsule [Pharmacy Med Name: VITAMIN D 05951EMK CAPSULE] 12 Capsule 0 Sig: TAKE ONE CAPSULE BY MOUTH ONE TIME WEEKLY Vitamin Supplements (Adult) Protocol Failed - 01/24/2023 3:49 PM Failed - Active on medication list Failed - Vitamin D dose not greater than 1.25mg Passed - Visit with relevant provider in past 12 months or upcoming 90 days Recent Visits Date Type Provider Dept 12/10/22 Office Visit Keith Craft MD [facility] 09/10/22 Office Visit Keith Craft MD [facility] 07/18/22 Office Visit Kerri Kauffman, APPOINTMENT CLERK, PLAYGROUND EQUIPMENT ERECTOR [facility] 06/07/22 Office Visit Keith Craft MD [facility] 03/02/22 Procedure Visit [facility] 03/02/22 Office Visit Keith Craft MD [facility] Showing recent visits within past 365 days and meeting all other requirements Future Appointments Date Type Provider Dept 04/12/23 Appointment [facility] Showing future appointments within next 90 days and meeting all other requirements amitriptyline (ELAVIL) 25 MG Tablet [Pharmacy Med Name: AMITRIPTYLINE HYDROCHLORIDE 25MG TABLET] 90Tablet 0 Sig: TAKE ONE (1) TABLET BY MOUTH NIGHTLY. Not Delegated - Tricyclic Agents Protocol Failed - 01/24/2023 3:49 PM Failed - This refill cannot be delegated Passed - Visit with relevant provider in past 12 months or upcoming 90 days Recent Visits Date Type Provider Dept 12/10/22 [facility] 09/10[facility]22 Office Visit Keith Craft MD [facility] 07/18/22 Office Visit Kerri Kauffman, APPOINTMENT CLERK, PLAYGROUND EQUIPMENT ERECTOR [facility] 06/07/22 Office Visit Keith Craft MD [facility] 03/02/22 Procedure Visit [facility] 03/02/22 Office Visit [facility] Showing recent visits within past 365 days and meeting all other requirements Future Appointments Date Type Provider Dept 04/12/23 Appointment Keith Craft MD [facility] Showing future appointments within next 90 days and meeting all other requirements documented in this encounter Plan of Treatment Upcoming Encounters Date Type Department Care Team (Late st Contact Info) Description 07/13/2024 1:30 PM MENTAL HEALTH PRACTITIONER Office Visit [facility] - Family Medicine - [place] [address] [place] [address] Liz Capellan, DO 2 [facility] [address] [address] 07/20/2024 2:15 PM MENTAL HEALTH PRACTITIONER Office Visit [facility] - Endocrinology - [place] [address] [place] [phone] Ana Vivar N, APPOINTMENT CLERK, PLAYGROUND EQUIPMENT ERECTOR 2 [place] [facility] [address] [place] [address] Yasmin Restrepo MD [address] [address] [place] [address] 07/31/2024 1:00 PM MENTAL HEALTH PRACTITIONER [facility] [address] [facility] [place] [address] Werner Swift MD [address]2 [facility] [address] Discharge Disposition: Discharged to home or Selfcare 08/03/2024 1:15 PM CDT [facility] - [facility] & [facility] [address] [place] [address] Werner Swift MD #2 [facility] [place] [address] 09/02/2024 2:00 PM CDT [facility] 1 [facility] [place] [address] Werner Swift MD #2 [facility] [address] Discharge Disposition: Discharged to home or Selfcare 10/09/2024 2:30 PM CDT Office Visit [facility] - Family [facility] [address] [place] [address] Liz Capellan, DO 2 [facility] [address] [place] [address] documented as of this encounter Goals Goal [...] Zones/Action plan education. I will notify my Senior Marketing Manager if my symptoms fall in the y ellow zone . I will consider receiving an influenza and pneumonia vaccination, if applicable. -I will call the office if I experience any symptoms listed above to discuss at home management options. documented as of this encounter Visit Diagnoses Diagnosis Insomnia, unspecified type documented in this encounter Additional Health Concerns Infection Onset Date Last Indicated Resolved Time Stenotrophomonas maltophilia Comment:Must have a follow up respiratory sample to remove isolation flag. 10/20/2021 10/20/2021 COVID - 19 04/18/2023 04/18/2023 04/28/2023 12:1 6 AM MENTAL HEALTH PRACTITIONER COVID - 19 07/13/2023 07/13/2023 07/23/2023 12:1 6 AM MENTAL HEALTH PRACTITIONER Respiratory Rule Out - RPA 03/17/2024 03/17/2024 1 3:36 PM CDT COVID - 19 04/27/2024 04/27/2024 04/27/2024 2:19 PM MENTAL HEALTH PRACTITIONER Assessment Noted Time PHQ-9 Depression Total Score: 1 10/12/20 21 10:29 AM CDT documented as of this encounter Care Teams Derrick Worker Well Service Relationship Specialty Start Date End Date Keith Craft MD PCP - General Family Medicine 01/14/19 12/26/23 Liz Capellan DO [address] [address] PCP - General Family Medicine 12/27/23 Quang Locke DO Gastroenterology 01/18/16 Bri Rollins, RN [place] Senior Marketing Manager 03/07/21 05/22/23 [place] [id number] [address] 05/25/21 Bri Rollins, RN [place] Nurse Senior Marketing Manager 03/07/21 05/23/23 Werner Swift MD [address] [place] [address] Consulting Physician Pulmonary Disease 01/30/22 documented as of this encounter
--- OUTSIDE RECORDS SUMMARY | 2024-07-10 13:42 | XMS_ITS | Clinical Summary ---
Author Organization [facility] Address [address] [place] [address] Phone Care Team Providers Care Pacu Rn Name Role Phone Quang Locke Oswaldo PRESLEY Unavailable [phone] Silvio Schulte MD Unavailable [phone] Werner Swift MD Unavailable Liz Capellan DO Primary Care Provider Allergies Active Allergy Reactions Criticality Noted Date Comments Penicillin V Anaphylaxis,Itching High 06/26/2018 Tongue gets thick Medications aspirin EC 81 MG Tablet Delayed ResponseIndication s:Coronary artery disease involving igiugig coronary artery of igiugig heart without angina pectoris Take 81 mg by mouth daily. 2 10/21/19 19 Active magnesium oxide (MAG-OX) 400 MG TabletIndications: Coronary artery disease involving igiugig coronary artery of igiugig heart without angina pectoris Take 1 Tab by mouth 2 times daily. 5 12/17/19 19 Active Corlanor 5 MG Tablet Take 5 mg by mouth 2 times daily. 01/19/20 22 Active carvedilol (COREG) 3.125 MG Tablet Take 3.125 mg by mouth 2 times daily. 12/20/19 22 Active Kerendia 10 MG Tablet Take 2 Tablets by mouth daily. 08/08/19 23 Active Continuous Blood Gluc Transmit (Dexcom G6 Transmitter) MiscIndications:Ty pe 2 diabetes mellitus with diabetic neuropathy, with long-term current use of insulin (HCC) USE DIRECTED TO MONITOR BLOOD SUGAR CONTINUOUSLY 24 HOURS a DAY DX:E11.40 1 Each 2 11/07/19 23 Active Additional Information Patient not taking.Reported on 07/09/2024 Continuous Blood Gluc Sensor (Dexcom G6 Sensor) MiscIndications:Ty pe 2 diabetes mellitus with diabetic neuropathy, with long-term current use of insulin (HCC) USE TO MONITOR BLOOD SUGAR CONTINUOUSLY 24 HOURS a DAY DX:E11.40 3 Each 5 12/07/19 23 Active Additional Information Patient not taking.Reported on 07/09/2024 ferrous sulfate 325 (65 Fe) MG Tablet Take 325 mg by mouth daily. Active Cyanocobalamin (Vitamin B-12 CR) 1000 MCG Tablet Controlled Release Take 1,000 mcg by mouth daily. Active Basaglar KwikPen 100 UNIT/ML Solution Pen-injectorIndica tions:Type 2 diabetes mellitus with diabetic neuropathy, with long-term current use of insulin ([facility]) INJECT 15 UNITS SUBCUTANEOUS DAILY 45 mL 4 07/18/19 24 Active theophylline (THEOCHRON) 400 MG TABLET SR 24 HRIndications:Pulm onary emphysema, unspecified emphysema type (HCC) TAKE ONE (1) CAPSULE BY MOUTH DAILY. 90 Tablet 3 08/09/19 24 Active Trulicity 0.75 MG/0.5ML Solution Pen-injectorIndica tions:Type 2 diabetes mellitus with diabetic neuropathy, with long-term current use of insulin ([facility]) INJECT 0.5 ML(0.75MG) WEEKLY ON SATURDAY DIRECTED BY PHYSICIAN 6 mL 5 09/10/19 24 Active insulin pen needle (NovoFine Autocover Pen Needle) 30G X 8 MM Misc USE WITH INSULIN THREE (3) TIMES DAILY 300 Each 1 09/19/19 24 Active Daliresp 500 MCG Tablet TAKE ONE (1) TABLET BY MOUTH DAILY. 90 Tablet 3 10/02/19 24 Active fluticasone (FLONASE) 50 MCG/ACT Suspension TWO (2) SPRAYS BY NASAL ROUTE DAILY. 16 g 5 10/28/19 24 Active naloxone HCl (Narcan) 4 MG/0.1ML Liquid 1 [place] by Nasal route as needed for Opioid Reversal. Administer in one nostril for symptoms of overdose (severe sleepiness, breathing problems, not responsive). Call 911. May repeat 1 spray in alternate nostril in 2-3 minutes if needed. 1 Each 11/05/19 24 Active Vascepa 1 g Capsule Take 1 Capsule by mouth in the morning and at bedtime. 09/03/19 24 Active lansoprazole (PREVACID) 30 MG CAPSULE DELAYED RELEASEIndications :Gastroesophageal reflux disease without esophagitis TAKE ONE (1) CAPSULE BY MOUTH DAILY. 90 Capsule 3 01/06/20 24 Active DULoxetine (CYMBALTA) [address] Particles TAKE ONE (1) CAPSULE BY MOUTH DAILY. TAKE WITH 30 MG CAPSULE 90 Capsule 1 01/20/20 24 Active amitriptyline (ELAVIL) 25 MG TabletIndications: Insomnia, unspecified type TAKE ONE (1) TABLET BY MOUTH NIGHTLY. 90 Tablet 1 01/20/20 24 Active Tradjenta 5 MG Tablet TAKE ONE (1) TABLET BY MOUTH DAILY 90 Tablet 2 01/22/20 24 Active ondansetron (Zofran) 4 MG TabletIndications: Gastroparesis Take 1 Tablet by mouth every 8 hours as needed for Nausea - 1st line. 30 Tablet 1 02/04/20 24 Active Additional Information Patient not taking.Reported on 07/09/2024 rosuvastatin (CRESTOR) 20 MG Tablet TAKE ONE (1) TABLET BY MOUTH NIGHTLY. 90 Tablet 1 03/23/20 24 Active escitalopram (LEXAPRO) 20 MG Tablet TAKE 1 TABLET BY MOUTH DAILY. 90 Tablet 1 03/23/20 24 Active OXYGEN CONCENTRATOR 2 L/min by Nasal route if needed (shortness of breath). Active Lidocaine (HM Lidocaine Patch) 4 % Patch 1 Patch by Transdermal route every 24 hours. 30 Patch 11 04/08/20 24 Active Trelegy Ellipta 100-62.5-25 MCG/ACT AEROSOL POWDER, BREATH ACTIVATED TAKE ONE (1) PUFF BY INHALATION DAILY. 60 Each 3 04/14/20 24 Active Ascorbic Acid (Vitamin C) 1000 MG Tablet Take 1 Tablet by mouth daily. Active polyethylene glycol (GLYCOLAX, MIRALAX) 17 g PackIndications:Co nstipation Take 1 Packet by mouth 2 times daily as needed for Constipation - 1st line. Dissolve in 4-8 oz of liquid. Indications: Constipation 90 Packet 12/05/20 24 Active spironolactone (ALDACTONE) 25 MG Tablet Take 0.5 Tablets by mouth daily. 90 Tablet 05/01/20 24 Active senna (SENOKOT) 8.6 MG Tablet Take 1 Tablet by mouth daily. 30 Tablet 04/30/20 24 Active sacubitril-valsart an (Entresto) 24-26 MG Tablet Take 0.5 Tablets by mouth 2 times daily for 180 days. 90 Tablet 1 04/30/20 24 025 Active predniSONE (DELTASONE) 10 MG Tablet Take 0.5 Tablets by mouth daily. 30 Tablet 5 05/05/20 24 Active guaiFENesin (Mucinex) 600 MG TABLET SR 12 HR Take 1 Tablet by mouth 2 times daily. 180 Tablet 3 05/05/20 24 Active valACYclovir (VALTREX) 500 MG Tablet TAKE ONE TABLET BY MOUTH EVERY DAY AT NIGHT 90 Tablet 2 05/07/20 24 Active albuterol (PROVENTIL, VENTOLIN) (2.5 MG/3ML) 0.083% Nebulizer SolnIndications:Pu lmonary emphysema, unspecified emphysema type (HCC) USE ONE (1) VIAL THREE (3) ML BY NEBULIZATION ROUTE FOUR (4) TIMES DAILY NEEDED FOR WHEEZING OR SHORTNESS OF BREATH 1 mL 2 05/07/20 24 Active albuterol 108 (90 Base) MCG/ACT Aerosol SolutionIndication s:Pulmonary emphysema, unspecified emphysema type (HCC) USE TWO (2) PUFF(S) BY INHALATION ROUTE EVERY FOUR (4) HOURS NEEDED WHEEZING 18 g 1 06/08/19 25 Active levothyroxine (SYNTHROID) 50 MCG TabletIndications: Acquired hypothyroidism TAKE ONE TABLET BY MOUTH DAILY 90 Tablet 2 06/07/19 25 Active gabapentin (NEURONTIN) 800 MG Tablet Take 1 Tablet by mouth 3 times daily. 90 Tablet 3 06/08/19 25 Active SUMAtriptan (IMITREX) 100 MG Tablet DIRECTED BY PHYSICIAN MAY REPEAT DOSE IF HEADACHE RECURS 9 Tablet 3 06/10/19 25 Active Empagliflozin (JARDIANCE) 10 MG Tablet Take 1 Tablet by mouth daily. 30 Tablet 2 06/12/19 25 Active diazePAM (VALIUM) 5 MG TabletIndications: Anxiety and depression,Neuropa thy Take 1 Tablet by mouth nightly as needed for Anxiety. 30 Tablet 07/09/19 25 Active oxyCODONE-Acetamin ophen (PERCOCET) 10-325 MG TabletIndications: Anxiety and depression,Neuropa thy Take 1 Tablet by mouth every 8 hours as needed for Severe pain. 90 Tablet 07/09/19 25 Active ergocalciferol (VITAMIN D) 59944 UNIT Capsule Take 1 Capsule by mouth once a week. 12 Capsule 07/09/19 25 Active ergocalciferol (VITAMIN D) 18196 UNIT Capsule TAKE ONE CAPSULE BY MOUTH ONE TIME WEEKLY 12 Capsule 02/18/20 24 025 Discontin ued(Reord er) Empagliflozin (JARDIANCE) 10 MG Tablet Take 1 Tablet by mouth daily. 30 Tablet 05/01/20 24 025 Discontin ued(Reord er) oxyCODONE-Acetamin ophen (PERCOCET) 10-325 MG TabletIndications: Anxiety and depression,Neuropa thy Take 1 Tablet by mouth every 8 hours as needed for Severe pain. 90 Tablet 06/08/19 25 025 Discontin ued(Reord er) diazePAM (VALIUM) 5 MG TabletIndications: Anxiety and depression,Neuropa thy Take 1 Tablet by mouth nightly as needed for Anxiety. 30 Tablet 06/08/19 25 025 Discontin ued(Reord er) Active Problems Patient Care Coordination No te Formatting of this note migh t be different from the original. Photo Printer's Impressions: Kary is a 70 y.o. female who was referred to care management for Complex care needs During this assessment, it was determined that the patient and this principal technical writer will focus on the followin. COPD Management 2. CHF Weight Monitoring 3. Patient/Caregiver Support ACP: Power of Courtesy Van Driver for Health Care (POA-HC): POA-HC form is present and current Current [facility] Discussion Record Status:: Present and current Needs: Living Arrangement Referral Needed: No needs at this time Community Resources Needed: No needs at this time Financial Referral Needed: No needs at this time Behavioral Health Resources Needed: No needs at this time Durable Medical Equipment Needed: No needs at this time ADL Assistance Needed: No needs at this time Additional Action Needed: No needs at this time Neurology needs: No needs at this time HEENT needs: No needs at this time Respiratory needs: No needs at this time Cardiovascular needs: No needs at this time GI//NEPHROLOGY needs: No needs at this time Reproductive needs: No needs at this time Endocrinology needs: No needs at this time Hematology/Immunology needs: No needs at this time Musculoskeletal needs: No needs Integumentary needs: No needs at this time Preventative interventions needing action: Dilated eye exam; Tdap Problem Noted Date Diagnosed Date Severe malnutrition 04/28/2024 Cognitive impairment 03/20/2024 Chronic cough 01/31/2023 04/12/2023 Tobacco dependence syndrome 01/31/202303/[address] nodules on CT 01/30/2022 Chronic combined systolic and diastolic heart fa ilure 10/19/2021 Edema 08/21/2021 Overview (10/05/2021): Added automatically from request for surgery [id number] Back pain 11/09/2019 Tricuspid valve insufficiency 11/09/2019 Valvular heart disease 11/09/2019 Chronic prescription opiate use 11/03/2019 Aortic atherosclerosis 10/12/2019 Chronic low back pain 07/27/2019 Requires oxygen therapy 02/02/2019 COPD (chronic obstructive pulmonary disease) 01/2019 Hypothyroidism 05/30/2018 CAD (coronary artery disease) 05/30/2018 Hypertriglyceridemia 05/30/2018 Anxiety and depression 05/30/2018 Hyperlipidemia 05/30/2018 Chronic kidney disease, stage 2 (mild) 8 Overview (12/10/2022): neg uacr, on kerinda and sglft 2 arb Hyponatremia 06/24/2017 Macrocytic anemia 06/24/2017 Neuropathy 09/28/2016 Personal history of nicotine dependence 08/01/19 17 Abnormality of gait and mobility 06/16/2016 Chronic systolic CHF (congestive heart failure) 06/16/2016 Type 2 diabetes mellitus wit h diabetic neuropathy, with long-term current use of insulin 06/16/2016 Diabetic polyneuropathy asso ciated with type 2 diabetes mellitus 06/16/2016 MRSA carrier 06/16/2016 Gastroesophageal reflux disease 05/15/2016 Gastroparesis 05/15/2016 Chronic nonalcoholic liver disease 04/02/2016 Hiatal hernia 04/02/2016 Iron deficiency 04/02/2016 PVCs (premature ventricular contractions) 2015 Left bundle branch hemiblock 03/22/2015 Carotid artery disease 03/22/2015 Overview (04/25/2020): 1. Mild plaque with less than 50% stenosis of the internal carotid arteries bilaterally. Presence of automatic (implantable) cardiac defi brillator 08/26/2013 Deficiency of other specified B group vitamins 1 07/12/2012 Overview (04/25/2020): nml folate Diverticular disease of colon 05/11/2013 Peptic ulcer disease 05/11/2013 Vitamin D deficiency Vitamin B 12 deficiency Presence of combination inte rnal cardiac defibrillator (ICD) and pacemaker Resolved Problems Problem Noted Date Diagnosed Date Resolved Date Pneumonia of right lung due to infectious organism, unspecified part of lung 04/27/202405/05 Sepsis 03/16/2024 03/20/2024 COPD exacerbation 07/13/2023 08/20/2023 Bronchiectasis with acute exacerbation 07/13/2023 08/20/2023 Closed fracture of left elbow 05/29/2023 06/06/2023 Closed displaced fracture of left femoral neck 05/29/2023 06/06/2023 Closed fracture of left hip, initial encounter 05/28/2023 06/06/2023 Pneumonia 04/18/2023 03/20/2024 Acute exacerbation of chroni c obstructive pulmonary disease (COPD) 08/21/2022 08/31/2022 Sepsis 10/19/2021 10/23/2021 Lactic acidosis 10/19/2021 10/23/2021 Edema of lower extremity 10/13/202104/2023 Shortness of breath 10/13/2021 06/07/19 23 Hypotension 01/30/2021 10/23/2021 Acute kidney injury superimp osed on chronic kidney disease 01/30/2021 08/14/2021 Sepsis, unspecified organism 01/30/2021 06/07/2022 Contact with and (suspected) exposure to other communicable diseases 10/12/2019 08/14/2021 Acute on chronic respiratory failure with hypoxia and hypercapnia 05/30/2018 02/02/2019 Respiratory acidosis 05/30/2018 019 SNEHAL (acute kidney injury) 05/30/2018 Leukocytosis 05/30/2018 02/02/2019 Hyperkalemia 05/30/2018 02/02/2019 Chronic kidney disease, stage 2 (mild) 02/10/2018 06/07/2022 Streptococcal septicemia 06/28/201701/2019 Acute delirium 06/24/2017 02/02/2019 Anxiety 06/16/2017 02/02/2019 Cardiomyopathy 06/16/2017 08/14/2021 Chronic obstructive pulmonar y disease with acute exacerbation 05/21/2017 02/02/2019 Personal history of tobacco use, presenting hazards to health 07/31/2016 05/05/2024 Chest pain 07/31/2016 08/14/2021 Closed fracture of left pelvis 06/16/2016 02/02/2019 Closed displaced fracture of left acetabulum 7 02/02/2019 Pulmonary emphysema 06/16/2016 09/01/19 23 Chronic diastolic heart failure 11/24/2015 08/14/2021 Overview (04/25/2020): CCM enroll Diastolic dysfunction 06/12/20132023 Overview (04/25/2020): lowest 35, no cad by cath Encounters Date Type Department Care Team Description 07/09/2024 Nurse Triage [facility] [address] [place] [address] Liz Capellan, DO Advice Only; Cough 07/08/2024 [facility] [place] [address] Liz Capellan, DO Medication Refill 06/26/2024 12:43 PM BIOMATHEMATICIAN - 06/26/2024 11:59 PM BIOMATHEMATICIAN Hospital Encounter [facility] [address] [place] [address] Werner Swift MD Discharge Disposition: Discharged to home or Selfcare 06/25/2024 Travel 06/12/2024 Refill [facility] [address] [facility] [place] [address] Liz Capellan, DO Medication Refill 06/10/2024 [facility]ill [facility] [address] [place] [phone] Keith Craft MD Medication Refill 06/09/2024 Telephone [facility] Gastroenterology [facility] [address] [place] [address] Lillian Tovar APRN, INSPECTOR EXPERIMENTAL ASSEMBLY Procedure 06/08/2024 [facility] [facility] [place] [address] Liz Capellan, DO Medication Refill 06/05/2024 [facility] [address] [place] [address] Marcin Anderson APRN, INSPECTOR EXPERIMENTAL ASSEMBLY Medication Refill 06/05/2024 [facility] [address] [place] [address] Werner Swift MD Medication Refill 05/29/2024 Telephone [facility] [address] [place] [address] Werner Swift MD 05/18/2024 11:00 AM BIOMATHEMATICIAN Home Care Visit [address] [address] Grace Friedman, PT PT - OASIS DISCHARGE 05/15/2024 9:30 AM BIOMATHEMATICIAN Home Care Visit [address] [address] Kisha Barlow, BUSINESS INITIATIVES MANAGER PT - HOME VISIT 05/14/2024 12:48 PM BIOMATHEMATICIAN - 05/14/2024 5:59 PM BIOMATHEMATICIAN [facility] [address] [place] [address] Sonny Jules MD Acute pain in female pelvis Discharge Disposition: Discharged to home or Selfcare 05/14/2024 Travel 05/13/2024 Telephone [facility] [address] [place] [address] Liz Capellan, DO Medication Refill 05/12/2024 12:00 PM BIOMATHEMATICIAN Home Care Visit [address] [address] Serge Siu RN SN - DISCIPLINE DISCHARGE 05/12/2024 9:30 AM BIOMATHEMATICIAN Home Care Visit [address] [address] Kisha Barlow BUSINESS INITIATIVES MANAGER PT - HOME VISIT 05/12/2024 Plan of Care Documentation [address] [address] 05/11/2024 2:00 PM BIOMATHEMATICIAN Office Visit [facility] [address] [place] [address] Ana Vivar, PERIOPERATIVE MANAGER, INSPECTOR EXPERIMENTAL ASSEMBLY Type 2 diabetes mellitus with diabetic neuropathy, with long-term current use of insulin (HCC) (Primary Dx); Pneumonia due to infectious organism, unspecified laterality, unspecified part of lung; Chronic obstructive pulmonary disease, unspecified COPD type (HCC) Discharge Disposition: Discharged to home or Selfcare 05/11/2024 Travel 05/11/2024 Telephone [facility] [address] [place] [phone] Liz Capellan, DO Medication Refill 05/08/2024 9:30 AM BIOMATHEMATICIAN Home Care Visit [address] [address] Kisha Barlow BUSINESS INITIATIVES MANAGER PT - HOME VISIT 05/07/2024 Telephone [facility] Central Call Center [address] [place] [address] Liz Capellan, Referral 05/07/2024 Refill [facility] [address] [place] [phone] Keith Craft MD Medication Refill 05/07/2024 Telephone [facility] [address] [place] [phone] Liz Capellan, DO Medication Management 05/06/2024 Refill [facility] [address] [place] [address] Marcin Anderson APRN, JAKOB Medication Refill 05/05/2024 10:45 AM BIOMATHEMATICIAN Office Visit [facility] Pulmonology & Sleep Medicine [facility] [address] [place] [phone] Werner Swift MD Other emphysema (HCC) (Primary Dx); Multiple lung nodules on CT; Tobacco dependence syndrome Discharge Disposition: Discharged to home or Selfcare 05/05/2024 Travel 05/04/2024 10:30 AM BIOMATHEMATICIAN Home Care Visit [address] [address] Kisha Barlow PTA PT - HOME VISIT 05/04/2024 9:30 AM BIOMATHEMATICIAN Home Care Visit [address] [address] Abrahan Stanford CNA NETWORK ENGINEERING ADVISOR - HOME VISIT 05/04/2024 Results Follow-Up [facility] [address] [place] [phone] Liz Capellan, Chronic systolic CHF (congestive heart failure) (HCC) (Primary Dx) 05/04/2024 Lab Requisition [facility] [address] [place] [phone] Liz Capellan, DO Pneumonia, unspecified organism 05/03/2024 12:30 PM BIOMATHEMATICIAN Home Care Visit [address] [address] Serge Siu RN SN - HOME HEALTH INITIAL EVALUATION 05/01/2024 12:00 PM BIOMATHEMATICIAN Home Care Visit [address] [address] Grace Friedman, PT PT - OASIS RESUMPTION OF CARE 05/01/2024 Home Care Visit [address] [address] Grace Friedman, PT CASE COMMUNICATION 05/01/[address] [address] Liz Capellan, DO Medication Management 04/30/2024 7:42 AM BIOMATHEMATICIAN [facility] [address] [place] [address] Hussein Butcher, PERIOPERATIVE MANAGER, CAT SCAN TECHNOLOGIST 04/30/2024 7:15 AM BIOMATHEMATICIAN Ancillary Procedure [facility] Main [address] [place] [address] Werner Swift MD Discharge Disposition: Discharged to home or Selfcare 04/30/2024 7:10 AM BIOMATHEMATICIAN - 04/30/2024 8:10 AM BIOMATHEMATICIAN Surgery [facility] [address] [place] [address] Werner Swift MD BRONCHOSCOPY 04/30/2024 Home Health Resumption of Care Planning [address] [address] 04/29/2024 Home Care Visit [address] [address] Judy Russell RN SN - OASIS TRANSFER W/OUT DC 04/27/2024 12:43 PM BIOMATHEMATICIAN - 04/30/2024 3:49 PM BIOMATHEMATICIAN Hospital Encounter [facility] [address] [place] [phone] Maira Casiano MD Patel, MD José Messina, Laurent Do MD Pneumonia of right lung due to infectious organism, unspecified part of lung Discharge Disposition: Home Health Care Svc 04/27/2024 11:00 AM BIOMATHEMATICIAN Home Care Visit [address] [address] Kisha Barlow, BUSINESS INITIATIVES MANAGER PT - HOME VISIT 04/27/2024 Documentation Only [facility] [address] [place] [address] Liz Capellan, DO 04/27/2024 Travel 04/24/2024 9:30 AM BIOMATHEMATICIAN Home Care Visit [address] [address] Kisha Barlow, BUSINESS INITIATIVES MANAGER PT - HOME VISIT 04/24/2024 [facility]phone [facility] [address] [place] [phone] Liz Capellan, DO Letter for School/Work 04/21/2024 9:30 AM BIOMATHEMATICIAN Home Care Visit [address] [address] Kisha Barlow, BUSINESS INITIATIVES MANAGER PT - HOME VISIT 04/16/2024 9:30 AM BIOMATHEMATICIAN Home Care Visit [address] [address] Kisha Barlow, BUSINESS INITIATIVES MANAGER PT - HOME VISIT 04/15/2024 12:00 PM BIOMATHEMATICIAN Home Care Visit [address] [address] Serge Siu RN SN - DISCIPLINE DISCHARGE 04/15/2024 9:30 AM BIOMATHEMATICIAN Home Care Visit [address] [address] Kisha Barlow, BUSINESS INITIATIVES MANAGER PT - HOME VISIT 04/14/2024 2:15 PM BIOMATHEMATICIAN [facility] [address] [place] [address] Princess Amanda OT OT - DISCIPLINE DISCHARGE 04/14/2024 [facility] [address] [place] [address] Becca Rowell, IS PROJECT MANAGER TELEPHONE ENCOUNTER 04/14/2024 [facility] [address] [place] [address] Yadira Balderrama, HHA Care Management (referral) 04/14/2024 [facility]phone [facility] [address] [place] [phone] Liz Capellan, Need Order 04/13/2024 [facility] [place] [phone] Keith Craft MD Medication Refill 04/13/2024 Refill [facility] [place] [address] Werner Swift MD Medication Refill 04/10/2024 2:40 PM BIOMATHEMATICIAN [facility] [place] [phone] Liz Capellan DO Vocal cord anomaly (Primary Dx); Colon cancer screening; Hoarseness; COPD exacerbation (HCC); Walking pneumonia; Debility Discharge Disposition: Discharged to home or Selfcare 04/10/2024 Telephone [facility] [address] [place] [phone] Liz Capellan DO 04/10/2024 Travel 04/09/2024 3:30 PM BIOMATHEMATICIAN [facility] [address] [place] [address] Gloria Trammell OTA OT - HOME VISIT 04/09/2024 [facility] [address] [place] [address] Gloria Trammell OTA CASE COMMUNICATION 04/09/2024 Telephone [facility] [address] [place] [phone] Liz Capellan, DO Prior Authorization 04/09/2024 [facility] [address] [place] [phone] Liz Capellan, Cough from Last 3 Months Immunizations Immunization Administration Dates Next Due Covid-19, Mrna, Lnp-s, PF, 1 00 mcg/0.5 mL Dose (Moderna) 07/30/2020,07/02/2020 Influenza Vaccine 03/10/2023,07/31/2017 Influenza Vaccine greater than 3 yrs 01/18/2021, 01/21/2020 Influenza, High-dose, Quadrivalent 01/18/2021 Influenza, Quadrivalent, Adjuvanted 02/05/2022 Influenza, Seasonal, Injecta ble, Undefined 01/21/2020 Influenza, high-dose, trivalent, PF 10/0 12/2023,01/19/2020,02/03/2019,01/31,02/10/2016,02/01/2014 Pneumococcal Vaccine - 13 Valent 02/20/2018,07/0 05/2014 Pneumococcal Vaccine Adult - 23 Valent 9 Pneumococcal conjugate PCV20 , polysaccharide PDV152 conjugate, adjuvant, PF 11/28/2022 RSV, Recombinant, Protein Link bunit Rsvpref, Adjuvant Recon (Arexvy) 03/22/2023 TB Skin Test 06/25/2016, 7,06/18/2016,06/16 TDAP Vaccine 01/31/2010 Zoster Vaccine Recombinant 02/03/2019,02/19/2018 Family History Medical History Relation Name Comments Asthma Daughter Heart Disease Father Congestive Heart Failure Mother Diabetes Mother Heart Disease Mother Skin Cancer Mother Thyroid Disease Mother Breast Cancer Other Mat. Cousin Relation Name Status Comments Daughter Father Mother Other Mat. Cousin Alive Social History Tobacco Use Types Packs/Day Years Used Date Smoking Tobacco: Former Cigarettes 2 50 1 - 03/16/2018 Smokeless Tobacco: Never Tobacco Cessation:Counseling Given: Not Answered Comments:Still uses nictoine patches and gum Alcohol Use Standard Drinks/Week Comments No 0 (1 standard drink = 0.6 oz pur e alcohol) [facility] Utilities Answer Date Recorded In the [...] declined 04/27/2024 How often do you attend muslim or baptist serv ices? Patient declined 04/27/2024 Do you belong to any clubs o r organizations such as muslim groups, unions, fraternal or athletic groups, or [...] Total Score - Questions 1-9 4 10/25 [facility] [place] of Occupat ional Health - Occupational Stress [...] any time in the past 12 m [facility], were you homeless or living [...] file Not on file Not on file Last Filed Vital Signs Vital Sign Reading Time Taken Comments Blood Pressure 110/66 05/18/2024 11:38 AM BIOMATHEMATICIAN Pulse 54 05/18/2024 11:38 AM BIOMATHEMATICIAN Temperature 36.6 C (97.9 F) 05/18/2024 11:38 AM BIOMATHEMATICIAN Respiratory Rate 16 05/18/2024 11:38 AM BIOMATHEMATICIAN Oxygen Saturation 92% 05/18/2024 11:38 AM BIOMATHEMATICIAN Inhaled Oxygen Concentration - - Weight 58.5 kg (129 lb) 05/18/2024 11:38 AM BIOMATHEMATICIAN Height 157.5 cm (5' 2 ) 05/14/2024 12:52 PM BIOMATHEMATICIAN Body Mass Index 23.59 05/14/2024 12:52 PM BIOMATHEMATICIAN Plan of Treatment Upcoming Encounters Date Type Department Care Team (Late st Contact Info) Description 07/13/2024 1:30 PM BIOMATHEMATICIAN Office Visit [facility] - Family Medicine [facility] [address] [place] [address] Liz Capellan, DO 2 [facility] [address] [place] [address] 07/20/2024 2:15 PM BIOMATHEMATICIAN Office Visit [facility] - Endocrinology - [facility] [address] [place] [phone] Ana Vivar, PERIOPERATIVE MANAGER, INSPECTOR EXPERIMENTAL ASSEMBLY 2 [facility] [address] [place] [address] Yasmin Restrepo MD [address] [phone] 07/31/2024 1:00 PM [facility]ATHEMATICIAN [facility] [address] [place] [phone] Werner Swift MD [address] [place] [phone] Discharge Disposition: Discharged to home or Selfcare 08/03/2024 1:15 PM CDT Office Visit [facility] - Pulmonology & Sleep Medicine [facility] [address] [place] [address] Werner Swift MD [address] [place] [address] 09/02/2024 2:00 PM CDT Appointment [facility] Respiratory Therapy [address] [place] [phone] Werner Swift MD [address] [place] [address] Discharge Disposition: Discharged to home or Selfcare 10/09/2024 2:30 PM CDT Office Visit [facility] - Family Medicine [facility] [address] [place] [address] Liz Capellan, DO [address] [address] Health Maintenance Due Date Last Done Comments Cologuard 09/19/1999 Diabetes: Eye Exam 03/02/2023 03/02/2022 DEXA Bone Density 04/03/2024 04/03/2022 Immunochemical Fecal Occult Blood 06/02/2024 06/02/2023 SARS-COV-2 Immunization ( season) 2024 03/03/2024, 02/24/2023, 11/21/2022, Additional history exists Diabetes: Hemoglobin A1c 09/15/2024 024, 01/01/2024, 08/02/2023, Additional history exists Discussion re Stopping Mammograms 2024 Diabetes: Foot Exam 01/07/2025 01/08/2024, 12/31/2023, 09/03/2023, Additional history exists Mammogram 02/26/2025 02/26/2023, 07/0 09/2021, 11/02/2020, Additional history exists Lung Cancer Screening 03/17/2025 03/17/2024 , 02/21/2024, 07/13/2023, Additional history exists Diabetes: Nephropathy Screening 06/12/2025 06/12/2024, 04/27/2024, 03/19/2024, Additional history exists Colonoscopy 01/08/2026 01/09/2016 Colorectal Cancer Screening 01/08/2026 01/09/2016 Td Immunization Every 10 Years (Adults With 1 Tdap) Discontinued 01/31/2010 Zoster Immunization Completed 02/03/2019, 8 Pneumococcal Immunization (50+ years) Completed 11/28/2022, 04/16/2019, 02/20/2018, Additional history exists Pneumococcal Immunization Combined Discontinued 11/28/2022, 04/16/2019, 02/20/2018, Additional history exists Hepatitis C Virus (HCV) Screening Completed 12/17/2022 Respiratory Syncytial Virus (RSV) Immunization (Adult) Completed 03/22/2023 Influenza Immunization Completed , 03/10/2023, 02/05/2022, Additional history exists Hepatitis B Immunization Discontinued Meningococcal Immunization (ACWY) Aged Out No longer eligible based on patient's age to complete this topic Rotavirus Immunization Aged Out No lo nger eligible based on patient's age to complete this topic Goals Goal Patient Goal Type Associated Problems [...] Zones/Action plan education. I will notify my Photo Printer if my symptoms fall in the y ellow zone . I will consider receiving an influenza and pneumonia vaccination, if applicable. -I will call the office if I experience any symptoms listed above to discuss at home management options. Medical Devices Implanted Type Area Flight Control Specialist Device Identifier Shelf Expiration Date Model / Serial / Lot Nail Im [id number] Long 11mm 1.5mm 180mm 125deg Angled Lock Lt Femoral Titanium Strl - [id number] Implanted:Qty: 1 on 05/29/2023 by Rocael Solano MD at [facility] IMPLANT Left: Femur Mulino Tra[employer] 12/25/2027 3125-1 180 S / [id number] S / [id number] Screw Bone T10 Full Thread 3.5mm/28mm - [id number] Implanted:Qty: 1 on 05/29/2023 by Rocael Solano MD at [facility] IMPLANT Left: Humerus [employer] 06/26/2023 [id number] / [id number] / N/A Screw Bone T10 Full Thread 3.5mm/34mm - [id number] Implanted:Qty: 1 on 05/29/2023 by Rocael Solano MD at [facility] IMPLANT Left: Humerus [employer] 06/26/2023 [id number] / [id number] / N/A Screw Bone T10 Full Thread 3.5mm/55mm - [id number] Implanted:Qty: 1 on 05/29/2023 by Rocael Solano MD at [facility] IMPLANT Left: Humerus [employer] 06/26/2023 [id number] / [id number] / N/A Screw Locking T10 Full Thread 3.5mm/16mm - [id number] Implanted:Qty: 1 on 05/29/2023 by Rocael Solano MD at [facility] IMPLANT Left: Humerus [employer] 06/26/2023 [id number] / [id number] / N/A Screw Locking T10 Full Thread 3.5mm/18mm - [id number] Implanted:Qty: 1 on 05/29/2023 by Rocael Solano MD at [facility] IMPLANT Left: Humerus [employer] 06/26/2023 [id number] / [id number] / N/A Screw Locking T10 Full Thread 3.5mm/22mm - [id number] Implanted:Qty: 4 on 05/29/2023 by Rocael Solano MD at [facility] IMPLANT Left: Humerus [employer] 06/26/2023 [id number] / [id number] / N/A Screw Locking T10 Full Thread 3.5mm/26mm - [id number] Implanted:Qty: 1 on 05/29/2023 by Rocael Solano MD at [facility] IMPLANT Left: Humerus [employer] 06/26/2023 [id number] / [id number] / N/A Screw Locking T10 Full Thread 3.5mm/30mm - [id number] Implanted:Qty: 2 on 05/29/2023 by Rocael Solano MD at [facility] IMPLANT Left: Humerus [employer] 06/26/2023 [id number] / [id number] / N/A Screw Bone 10.5mm 80mm Gamma3 Ti Hip Trochanter Lag Strl Long Nail - [id number] Implanted:Qty: 1 on 05/29/2023 by Rocael Solano MD at [facility] IMPLANT Left: Femur Mulino Tra[employer] 09/24/2027 3060-0 080 S / [id number] S / [id number] Screw Bone 5mm 32.5mm T2 Ti Fthrd Femur Hum Tibia Prox Lock Strl Im Nail Sys - [id number] Implanted:Qty: 1 on 05/29/2023 by Rocael Solano MD at [facility] IMPLANT Left: Femur [employer] 12/24/2026 7930-9192 S / [id number] S / [id number] Screw Locking T10 Full Thread 3.5mm/36mm - [id number] Implanted:Qty: 1 on 05/29/2023 by Rocael Solano MD at [facility] IMPLANT Left: Humerus [employer] 06/26/2023 [id number] / [id number] / N/A Screw Locking T10 Full Thread 3.5mm/55mm - [id number] Implanted:Qty: 1 on 05/29/2023 by Rocael Solano MD at [facility] IMPLANT Left: Humerus [employer] 06/26/2023 [id number] / [id number] / N/A Plate 89mm Ti 4 Shaft Hole Lock Variax Bone Elbow Left Olecranon Ns - [id number] Implanted:Qty: 1 on 05/29/2023 by Rocael Solano MD at [facility] IMPLANT Left: Humerus [employer] 06/26/2023 [id number] / [id number] / N/A Screw Bone T10 Full Thread 3.5mm/18mm - [id number] Implanted:Qty: 1 on 05/29/2023 by Rocael Solano MD at [facility] IMPLANT Left: Humerus [employer] 06/26/2023 [id number] / [id number] / N/A Screw Bone T10 Full Thread 3.5mm/22mm - [id number] Implanted:Qty: 1 on 05/29/2023 by Rocael Solano MD at [facility] IMPLANT Left: Humerus [employer] 06/26/2023 [id number] / [id number] / N/A Screw Bone T10 Full Thread 3.5mm/26mm - [id number] Implanted:Qty: 2 on 05/29/2023 by Rocael Solano MD at [facility] IMPLANT Left: Humerus [employer] 06/26/2023 [id number] / [id number] / N/A 3.5mm X 60mm Locking Screw Implanted:Qty: 1 on 05/29/2023 by Rocael Solano MD at [facility] Left: Humerus ROSEMARY 06/26/2023 [id number] / [id number] / N/A 2.7mm X 18mm Non Locking Screw Implanted:Qty: 1 on 05/29/2023 by Rocael Solano MD at [facility] Left: Humerus ROSEMARY 06/26/2023 [id number] / [id number] / N/A Left Distal Lateral Humerus Plate 2 Hole Implanted:Qty: 1 on 05/29/2023 by Rocael Solano MD at [facility] Left: Humerus ROSEMARY 06/26/2023 [id number] / [id number] / N/A Distal Medial Humerus Plate 3 Hole Implanted:Qty: 1 on 05/29/2023 by Rocael Solano MD at [facility] Left: Humerus ROSEMARY 06/26/2023 [id number] / [id number] / N/A 3.5mm X 20mm Implanted:Qty: 1 on 05/29/2023 by Rocael Solano MD at [facility] Left: Humerus ROSEMARY 06/26/2023 [id number] / [id number] / N/A Procedures Procedure Name Priority Date/Time Associated Diagnosis Comments XR CHEST 2 VIEWS Routine 06/26/2024 1:01 PM BIOMATHEMATICIAN Subacute cough CARDIOLOGY PROCEDURE 06/15/2024 12:00 AM BIOMATHEMATICIAN PROTIME (PT) (PROTHROMBIN TIME) 06/12/2024 12:00 AM BIOMATHEMATICIAN COMPLETE BLOOD COUNT (CBC) WITH DIFF Routine 06/12/2024 12:00 AM BIOMATHEMATICIAN Pneumonia of right lung due to infectious organism, unspecified part of lung URINALYSIS (UA) RANDOM 06/12/2024 12:00 AM BIOMATHEMATICIAN CMP (COMPREHENSIVE METABOLIC PANEL) 06/12/2024 12:[address] PELVIS FOR BONE DETAIL WO/ CONTRAST Stat with Interpretation 05/14/2024 4:32 PM BIOMATHEMATICIAN URINALYSIS REFLEX IF INDICATED BY ABNORMAL RESULTS STAT 05/14/2024 3:02 PM BIOMATHEMATICIAN XR PELVIS 1 OR 2 VIEWS STAT 05/14/2024 2:05 PM BIOMATHEMATICIAN CBC WITH AUTO DIFFERENTIAL Routine 05/04/2024 9:30 AM BIOMATHEMATICIAN Pneumonia, unspecified organism COMPLETE BLOOD COUNT (CBC) WITH DIFF Routine 05/04/2024 9:30 AM BIOMATHEMATICIAN Pneumonia, unspecified organism THYROXINE (T4) TOTAL Routine 05/04/2024 9:30 AM BIOMATHEMATICIAN Pneumonia, unspecified organism BASIC METABOLIC PANEL W/ CALCIUM TOTAL Routine 05/04/2024 9:30 AM BIOMATHEMATICIAN Pneumonia, unspecified organism POCT GLUCOSE Routine 04/30/2024 11:07 AM BIOMATHEMATICIAN POCT GLUCOSE Routine 04/30/2024 7:54 AM BIOMATHEMATICIAN PATHOLOGY CYTOLOGY NON-CLINICAL APPLICATIONS SPECIALIST STAT 04/30/2024 7:46 AM BIOMATHEMATICIAN CULTURE, RESPIRATORY, LOWER STAT 04/30/2024 7:46 AM BIOMATHEMATICIAN SMEAR, GRAM STAIN STAT 04/30/2024 7:46 AM BIOMATHEMATICIAN CULTURE, FUNGUS STAT 04/30/2024 7:46 AM BIOMATHEMATICIAN CULTURE, TB (ACID FAST BACILLI) STAT 04/30/2024 7:46 AM BIOMATHEMATICIAN SMEAR, TB (ACID FAST BACILLI) STAT 04/30/2024 7:46 AM BIOMATHEMATICIAN BRONCHOSCOPY FIBEROPTIC 04/30/2024 7:22 AM BIOMATHEMATICIAN LUNG INFILTRATE PULM INTERV IMAGING Routine 04/30/2024 7:14 AM BIOMATHEMATICIAN CBC WITH AUTO DIFFERENTIAL Routine 04/30/2024 5:11 AM BIOMATHEMATICIAN COMPLETE BLOOD COUNT (CBC) WITH DIFF Routine 04/30/2024 5:11 AM BIOMATHEMATICIAN BASIC METABOLIC PANEL W/ CALCIUM TOTAL Routine 04/30/2024 5:11 AM BIOMATHEMATICIAN RHYTHM STRIP 04/30/2024 12:00 AM BIOMATHEMATICIAN RHYTHM STRIP 04/30/2024 12:00 AM BIOMATHEMATICIAN POCT GLUCOSE Routine 04/29/2024 6:50 PM BIOMATHEMATICIAN POCT GLUCOSE Routine 04/29/2024 5:30 PM BIOMATHEMATICIAN POCT GLUCOSE Routine 04/29/2024 11:00 AM BIOMATHEMATICIAN POCT GLUCOSE Routine 04/29/2024 7:36 AM BIOMATHEMATICIAN CBC WITH AUTO DIFFERENTIAL Routine 04/29/2024 6:00 AM BIOMATHEMATICIAN COMPLETE BLOOD COUNT (CBC) WITH DIFF Routine 04/29/2024 6:00 AM BIOMATHEMATICIAN BASIC METABOLIC PANEL W/ CALCIUM TOTAL Routine 04/29/2024 6:00 AM BIOMATHEMATICIAN ASPERGILLUS AG SERUM, [place] ASPAG Routine 04/29/2024 6:00 AM BIOMATHEMATICIAN FUNGAL ANTIBODY (ASPER, HISTO, BLASTO) Routine 04/29/2024 6:00 AM BIOMATHEMATICIAN HISTOPLASMA AND BLASTOMYCES AG, EIA, URINE, [place] UHBAG Routine 04/29/2024 3:08 AM BIOMATHEMATICIAN UR LEGIONELLA ANTIGEN Routine 04/29/2024 3:08 AM BIOMATHEMATICIAN RHYTHM STRIP 04/29/2024 12:00 AM BIOMATHEMATICIAN RHYTHM STRIP 04/29/2024 12:00 AM BIOMATHEMATICIAN RHYTHM STRIP 04/29/2024 12:00 AM BIOMATHEMATICIAN POCT GLUCOSE Routine 04/28/2024 7:03 PM BIOMATHEMATICIAN POCT GLUCOSE Routine 04/28/2024 5:05 PM BIOMATHEMATICIAN POCT GLUCOSE Routine 04/28/2024 11:13 AM BIOMATHEMATICIAN POCT GLUCOSE Routine 04/28/2024 7:23 AM BIOMATHEMATICIAN CBC WITH AUTO DIFFERENTIAL Routine 04/28/2024 5:21 AM BIOMATHEMATICIAN COMPLETE BLOOD COUNT (CBC) WITH DIFF Routine 04/28/2024 5:21 AM BIOMATHEMATICIAN BASIC METABOLIC PANEL W/ CALCIUM TOTAL Routine 04/28/2024 5:21 AM BIOMATHEMATICIAN RHYTHM STRIP 04/28/2024 12:00 AM BIOMATHEMATICIAN RHYTHM STRIP 04/28/2024 12:00 AM BIOMATHEMATICIAN RHYTHM STRIP 04/28/2024 12:00 AM BIOMATHEMATICIAN AEROSOL NEBULIZER-INITIAL Routine 04/27/2024 9:15 PM BIOMATHEMATICIAN PROCALCITONIN Routine 04/27/2024 9:00 PM BIOMATHEMATICIAN MRSA NASAL PCR Routine 04/27/2024 9:00 PM BIOMATHEMATICIAN MRSA NASAL BY PCR Routine 04/27/2024 9:00 PM BIOMATHEMATICIAN STREPTOCOCCUS PNEUMONIAE ANTIGEN, URINE Routine 04/27/2024 8:59 PM BIOMATHEMATICIAN UR LEGIONELLA ANTIGEN Routine 04/27/2024 8:59 PM BIOMATHEMATICIAN POCT GLUCOSE Routine 04/27/2024 7:09 PM BIOMATHEMATICIAN CULTURE, BLOOD STAT 04/27/2024 5:52 PM BIOMATHEMATICIAN CULTURE, BLOOD STAT 04/27/2024 5:[address] ANGIO CHEST W/WO CONTRAST WITH PP (POST PROCESSING) Stat with Interpretation 04/27/2024 3:31 PM BIOMATHEMATICIAN XR CHEST 2 VIEWS STAT 04/27/2024 1:48 PM BIOMATHEMATICIAN RSV,SARS-COV-2,INFLU JIMMY A&B BY PCR STAT 04/27/2024 1:21 PM BIOMATHEMATICIAN BLUE TOP TUBE STAT 04/27/2024 1:08 PM BIOMATHEMATICIAN CBC WITH AUTO DIFFERENTIAL STAT 04/27/2024 1:08 PM BIOMATHEMATICIAN EXTRA TUBES STAT 04/27/2024 1:08 PM BIOMATHEMATICIAN TROPONIN I, HIGH SENSITIVITY (HSTRP) STAT 04/27/2024 1:08 PM BIOMATHEMATICIAN D-DIMER STAT 04/27/2024 1:08 PM BIOMATHEMATICIAN B-TYPE NATRIURETIC PEPTIDE (BNP) STAT 04/27/2024 1:08 PM BIOMATHEMATICIAN CMP (COMPREHENSIVE METABOLIC PANEL) STAT 04/27/2024 1:08 PM BIOMATHEMATICIAN COMPLETE BLOOD COUNT (CBC) WITH DIFF STAT 04/27/2024 1:08 PM BIOMATHEMATICIAN EKG 12 LEAD STAT 04/27/2024 12:51 PM BIOMATHEMATICIAN RHYTHM STRIP 04/27/2024 12:00 AM BIOMATHEMATICIAN RHYTHM STRIP 04/27/2024 12:00 AM BIOMATHEMATICIAN EKG SCAN 04/27/2024 12:[address] CHEST W CONTRAST Stat with Interpretation 03/17/2024 10:51 AM CDT HEMOGLOBIN A1C W/ ESTIMATED GLUCOSE Routine 03/17/2024 4:32 AM CDT PODIATRY CONSULT 01/08/2024 12:00 AM CDT STOOL, OCCULT BLOOD, DIAGNOSTIC, VIA GUAIAC STAT 06/02/2023 5:05 PM BIOMATHEMATICIAN [facility] SCREENING BILATERAL DIGITAL W CAD W CLARI Routine 02/26/2023 1:23 PM CDT Visit for screening mammogram HEPATITIS C ANTIBODY Routine 12/17/2022 11:39 AM CDT Need for hepatitis C screening test [facility] BONE DENSITOMETRY AXIAL SKELETON Routine 04/03/2022 9:46 AM BIOMATHEMATICIAN Postmenopausal DIABETIC BILATERAL RETINAL IMAGING WITH COMPUTERIZED INTERPRETATION Routine 03/02/2022 10:32 AM CDT Type 2 diabetes mellitus with diabetic neuropathy, with long-term current use of insulin (HCC) from Last 3 Months or Most Recently Relevant to Health Maintenance Results * XR CHEST 2 VIEWS (06/26/2024 1:01 PM BIOMATHEMATICIAN) Only the most recent of2 resultswithin the time period is included. Anatomical Region Laterality Modality Chest N/A Digital Radiogra phy 06/29/2024 3:53 PM BIOMATHEMATICIAN Impressions 06/29/2024 3:55 PM BIOMATHEMATICIAN IMPRESSION: No acute pulmonary process. Narrative 06/29/2024 3:55 PM BIOMATHEMATICIAN EXAM DESCRIPTION: XR CHEST 2 VIEWS REASON FOR STUDY: pt c/o chest congestion, cough, SON, nausea without vomiting x 2-3 weeks. hx of COPD, CHF, PE, CAD, and former smoker. pt recently had pacemaker placed 06/18/24 TECHNIQUE: 2 radiographic view(s) of the chest. COMPARISON: 04/27/2024 FINDINGS: LUNGS: No focal opacity, pleural effusion, or pneumothorax. Lungs are mildly hyperinflated suggestive of emphysema. There is a right skin fold. HEART/MEDIASTINUM: Cardiac silhouette normal in size. Mediastinal and hilar contours appear normal. LINES/TUBES: Left subclavian approach cardiac device with unchanged leads. BONES: No acute osseous abnormality. Compression deformities in the thoracic spine appear grossly stable from prior CT when allowing for differences in technique. THIS IS AN ELECTRONICALLY VERIFIED FINAL REPORT 06/29/2024 3:53 PM - Electronically signed by Drew Sullivan M.D. MM: MM Report ID: [id number] Reading Location: [id number] Procedure Note Drew Sullivan MD - 06/29/2024 EXAM DESCRIPTION: XR CHEST 2 VIEWS REASON FOR STUDY: pt c/o chest congestion, cough, SON, nausea without vomiting x 2-3 weeks. hx of COPD, CHF, PE, CAD, and former smoker. pt recently had pacemaker placed 06/18/24 TECHNIQUE: 2 radiographic view(s) of the chest. COMPARISON: 04/27/2024 FINDINGS: LUNGS: No focal opacity, pleural effusion, or pneumothorax. Lungs are mildly hyperinflated suggestive of emphysema. There is a right skin fold. HEART/MEDIASTINUM: Cardiac silhouette normal in size. Mediastinal and hilar contours appear normal. LINES/TUBES: Left subclavian approach cardiac device with unchanged leads. BONES: No acute osseous abnormality. Compression deformities in the thoracic spine appear grossly stable from prior CT when allowing for differences in technique. THIS IS AN ELECTRONICALLY VERIFIED FINAL REPORT 06/29/2024 3:53 PM - Electronically signed by Drew Sullivan M.D. MM: MM Report ID: [id number] Reading Location: [id number] IMPRESSION: No acute pulmonary process. us Werner Swift MD IMG DIAGNOSTIC ORDERABLES Final Result * CARDIOLOGY PROCEDURE (06/15/2024 12:00 AM BIOMATHEMATICIAN) Anatomical Region Laterality Modality Other 06/15/2024 us Provider Scan CV PROCEDURES SCHED Final Result * URINALYSIS (UA) RANDOM (06/12/2024 12:00 AM BIOMATHEMATICIAN) 06/12/2024 us Provider Scan URINE ORDERABLES Final Result Performing Organization Address City/[facility] Co de Phone Number SCAN * PROTIME (PT) (PROTHROMBIN TIME) (06/12/2024 12:00 AM BIOMATHEMATICIAN) INR 1.0 SCAN 06/12/2024 us Provider Scan HEMATOLOGY ORDERABLES Final Resu lt Performing Organization Address City/[facility]/ZIP Co de Phone Number SCAN * CMP (COMPREHENSIVE METABOLIC PANEL) (06/12/2024 12:00 AM BIOMATHEMATICIAN) Only the most recent of2 resultswithin the time period is included. 06/12/2024 us Provider Scan CHEMISTRY ORDERABLES Final Resul t SCAN * CBC with Diff (06/12/2024 12:00 AM BIOMATHEMATICIAN) Blood Laurent Kumar MD HEMATOLOGY ORDERABLES Fi nal Result Performing Organization Address City/[facility]/ZIP Co de Phone Number SCAN * CT PELVIS FOR BONE DETAIL WO/ CONTRAST (05/14/2024 4:32 PM BIOMATHEMATICIAN) Anatomical Region Laterality Modality Abdomen N/A Computed Tomogra phy 05/14/2024 5:17 PM BIOMATHEMATICIAN Impressions 05/14/2024 5:20 PM BIOMATHEMATICIAN IMPRESSION: Subtle fractures of the left superior pubic ramus and right sacral ala are new since May, uncertain acuity but presumably acute given clinical history. Narrative 05/14/2024 5:20 PM BIOMATHEMATICIAN EXAM DESCRIPTION: CT PELVIS FOR BONE DETAIL WO/ CONTRAST REASON FOR STUDY: c/o LT pelvis/hip pain after a fall 3 days ago. prior xray today recommended CT for further eval. HX of CAD, cardiomyopathy, CHF, COPD, . TECHNIQUE: CT scan of the pelvis performed without intravenous and without oral contrast using helical scanning technique. Reconstructed coronal and sagittal MPR images reviewed. All images stored on PACS. Automated exposure control was used as a dose optimization technique for this examination. COMPARISON: 06/02/2023 FINDINGS: MUSCULOSKELETAL: Right hip arthroplasty and left femoral gamma nail appear intact. Moderate left hip arthritis. Moderate degenerative disc disease in the lumbar spine. Left anterior superior pubic ramus fracture appears to be new from the May 2023 prior. The inferior pubic ramus injuries old. Irregularity along the right sacral ala also appears to be new from the prior, uncertain acuity. Moderate demineralization. PELVIC CONTENTS: Unremarkable. BODY WALL: Unremarkable. THIS IS AN ELECTRONICALLY VERIFIED FINAL REPORT 05/14/2024 5:17 PM - Electronically signed by Juan A Ayala M.D. AR: DONIS Report ID: [id number] Reading Location: [id number] Procedure Note Juan A Ayala MD - 05/14/2024 EXAM DESCRIPTION: CT PELVIS FOR BONE DETAIL WO/ CONTRAST REASON FOR STUDY: c/o LT pelvis/hip pain after a fall 3 days ago. prior xray today recommended CT for further eval. HX of CAD, cardiomyopathy, CHF, COPD, . TECHNIQUE: CT scan of the pelvis performed without intravenous and without oral contrast using helical scanning technique. Reconstructed coronal and sagittal MPR images reviewed. All images stored on PACS. Automated exposure control was used as a dose optimization technique for this examination. COMPARISON: 06/02/2023 FINDINGS: MUSCULOSKELETAL: Right hip arthroplasty and left femoral gamma nail appear intact. Moderate left hip arthritis. Moderate degenerative disc disease in the lumbar spine. Left anterior superior pubic ramus fracture appears to be new from the May 2023 prior. The inferior pubic ramus injuries old. Irregularity along the right sacral ala also appears to be new from the prior, uncertain acuity. Moderate demineralization. PELVIC CONTENTS: Unremarkable. BODY WALL: Unremarkable. THIS IS AN ELECTRONICALLY VERIFIED FINAL REPORT 05/14/2024 5:17 PM - Electronically signed by Juan A Ayala M.D. AR: DONIS Report ID: [id number] Reading Location: [id number] IMPRESSION: Subtle fractures of the left superior pubic ramus and right sacral ala are new since May, uncertain acuity but presumably acute given clinical history. Sonny Jules MD [facility] CT ORDERABLES Final Re sult * (ABNORMAL) Urinalysis w/ Reflex (05/14/2024 3:02 PM BIOMATHEMATICIAN) SPECIFIC GRAVITY 1.005 1.003 - 1.030 05/14/2024 3:23 PM BIOMATHEMATICIAN [facility] URINE PH 6.0 5.0 - 9.0 05/14/2024 3:23 PM BIOMATHEMATICIAN [facility] WBC ESTERASE Negative Negative 05/14/2024 3:23 PM BIOMATHEMATICIAN [facility] NITRITE Negative Negative 05/14/2024 3:23 PM BIOMATHEMATICIAN [facility] PROTEIN, RANDOM URINE 15 mg/dL(A) Negative 05/14/2024 3:23 PM BIOMATHEMATICIAN [facility] URINE GLUCOSE, QUAL 1000 mg/dL(A) Negative 05/14/2024 3:23 PM BIOMATHEMATICIAN [facility] URINE KETONES Negative Negative 05/14/2024 3:23 PM BIOMATHEMATICIAN [facility] UROBILINOGEN Normal Normal mg/dL 05/14/2024 3:23 PM BIOMATHEMATICIAN [facility] URINE BLOOD Negative Negative bharathi/ul 05/14/2024 3:23 PM BIOMATHEMATICIAN [facility] URINALYSIS COLOR Yellow 05/14/20 3:23 PM BIOMATHEMATICIAN [facility] URINALYSIS CLARITY Clear 05/14/2024 3:23 PM BIOMATHEMATICIAN [facility] Urine URINE SPECIMEN / Unknown Non-Phlebotomy Collection / Unknown 05/14/2024 3:02 PM BIOMATHEMATICIAN 05/14/2024 3:14 PM BIOMATHEMATICIAN us Sonny Jules MD URINE ORDERABLES Final Res ult [facility] [address] [place] [address] * XR PELVIS 1 OR 2 VIEWS (05/14/2024 2:05 PM BIOMATHEMATICIAN) Anatomical Region Laterality Modality Abdomen, Pelvis N/A Digital Radiogra phy 05/14/2024 3:05 PM BIOMATHEMATICIAN Impressions 05/14/2024 3:08 PM BIOMATHEMATICIAN IMPRESSION: 1. Subtle irregularity of the left aspect of the symphysis, for which underlying fracture can not be excluded. This can be further evaluated with either radiographs or CT. 2. Ossific density along the superior margin of the left greater trochanter, favored to be chronic such as with old fracture fragment or heterotopic ossification. Acute fracture would be difficult to entirely exclude. Attention at time of hip radiographs or CT recommended. 3. Osteoarthritis. Narrative 05/14/2024 3:08 PM BIOMATHEMATICIAN EXAM DESCRIPTION: XR PELVIS 1 OR 2 VIEWS REASON FOR STUDY: fall ground level fall 2-3 days ago- Left hip pain worse than right-pain in both hips with movement- HX bilateral hip surgery TECHNIQUE: AP radiographic view(s) of the pelvis . COMPARISON: 06/02/2023, 05/29/2023, 05/28/2023 FINDINGS: BONES/JOINTS: There is hardware demonstrated within the proximal left femur, in near anatomic alignment. There is an osseous fragment along the superior aspect of the greater trochanter, which may represent heterotopic ossification. Acute fracture fragment less likely. Arthroplasty components in the right hip are in near anatomic alignment. No definite hardware complication. Irregularity is noted along the left aspect of the symphysis. This may represent a nondisplaced fracture. Sclerotic focus within the right aspect of the symphysis is stable. The sacrum is poorly visualized on this study. 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 Lumbar spondylosis SOFT TISSUES: Within normal limits. THIS IS AN ELECTRONICALLY VERIFIED FINAL REPORT 05/14/2024 3:05 PM - Electronically signed by Sudha Viera M.D. TW: TW Report ID: [id number] Reading Location: [id number] Procedure Note Sudha Viera MD - 05/14/2024 EXAM DESCRIPTION: XR PELVIS 1 OR 2 VIEWS REASON FOR STUDY: fall ground level fall 2-3 days ago- Left hip pain worse than right-pain in both hips with movement- HX bilateral hip surgery TECHNIQUE: AP radiographic view(s) of the pelvis . COMPARISON: 06/02/2023, 05/29/2023, 05/28/2023 FINDINGS: BONES/JOINTS: There is hardware demonstrated within the proximal left femur, in near anatomic alignment. There is an osseous fragment along the superior aspect of the greater trochanter, which may represent heterotopic ossification. Acute fracture fragment less likely. Arthroplasty components in the right hip are in near anatomic alignment. No definite hardware complication. Irregularity is noted along the left aspect of the symphysis. This may represent a nondisplaced fracture. Sclerotic focus within the right aspect of the symphysis is stable. The sacrum is poorly visualized on this study. 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 Lumbar spondylosis SOFT TISSUES: Within normal limits. THIS IS AN ELECTRONICALLY VERIFIED FINAL REPORT 05/14/2024 3:05 PM - Electronically signed by Sudha Viera M.D. TW: TW Report ID: [id number] Reading Location: [id number] IMPRESSION: 1. Subtle irregularity of the left aspect of the symphysis, for which underlying fracture can not be excluded. This can be further evaluated with either radiographs or CT. 2. Ossific density along the superior margin of the left greater trochanter, favored to be chronic such as with old fracture fragment or heterotopic ossification. Acute fracture would be difficult to entirely exclude. Attention at time of hip radiographs or CT recommended. 3. Osteoarthritis. Sonny Jules MD [facility] DIAGNOSTIC ORDERABLES Final Result * (ABNORMAL) CBC WITH AUTO DIFFERENTIAL (05/04/2024 9:30 AM BIOMATHEMATICIAN) Only the most recent of5 resultswithin the time period is included. WBC 6.71 4.00 - 12.00 10(3)/mcL 05/04/2024 11:14 AM BIOMATHEMATICIAN [facility] RBC 3.50(L) 3.80 - 5.30 10(6)/mcL 05/04/2024 11:14 AM BIOMATHEMATICIAN [facility] HEMOGLOBIN (HGB) 12.5 12.0 - 15.8 g/dL 05/04/2024 11:14 AM [facility] HEMATOCRIT (HCT) 37.2 36.0 - 47.0 % 05/04/2024 11:14 AM BIOMATHEMATICIAN [facility] MCV 106.3(H) 82.0 - 96.0 fL 05/04/2024 11:14 AM BIOMATHEMATICIAN [facility] MCH 35.7(H) 26.0 - 34.0 pg 05/04/2024 11:14 AM [facility] MCHC 33.6 31.0 - 36.0 g/dL 05/04/2024 11:14 AM [facility] PLATELET COUNT 358 140 - 440 10(3)/[facility] 05/04/2024 11:14 AM [facility] RDW 12.0 11.8 - 15.5 % 05/04/2024 11:14 AM [facility] MPV 9.5(L) 9.7 - 12.4 fL 05/04/2024 11:14 AM [facility] NEUTROPHILS 59.1 47.0 - 73.0 % 05/04/2024 11:14 AM [facility] LYMPHOCYTES 31.0 18.0 - 42.0 % 05/04/2024 11:14 AM [facility] MONOCYTES 9.5 4.0 - 12.0 % 05/04/2024 11:14 AM [facility] EOSINOPHILS 0.1 0.0 - 5.0 % 05/04/2024 11:14 AM [facility] BASOPHILS 0.3 0.0 - 1.0 % 05/04/2024 11:14 AM [facility] ABSOLUTE NEUTROPHILS 3.96 1.60 - 7.70 10(3)/mcL 05/04/2024 11:14 AM [facility] ABSOLUTE LYMPHOCYTES 2.08 1.30 - 3.20 10(3)/[facility] 05/04/2024 11:14 AM [facility] ABSOLUTE MONOCYTES 0.64 0.20 - 1.00 10(3)/[facility] 05/04/2024 11:14 AM [facility] ABSOLUTE EOSINOPHIL 0.01 0.00 - 0.40 10(3)/[facility] 05/04/2024 11:14 AM [facility] ABSOLUTE BASOPHILS 0.02 0.00 - 0.10 10(3)/[facility] 05/04/2024 11:14 AM [facility] NRBC PER 100 WBC 0 05/04/20 11:14 AM [facility] RESULTS ARE CONSISTENT WITH PERIPHERAL SMEAR REVIEW Yes 05/04/2024 11:14 AM BIOMATHEMATICIAN [facility] RBC MORPHOLOGY CONSISTENT WITH INDICES Yes 05/04/2024 11:14 AM BIOMATHEMATICIAN [facility] Blood No Phlebotomy Charged / Unknown 05/04/2024 9:30 AM BIOMATHEMATICIAN 05/04/2024 10:31 AM BIOMATHEMATICIAN us Liz L Marilia DO HEMATOLOGY ORDERABLES Final R esult Performing Organization Address City/[facility] Co de Phone Number [facility] [address] [place] [address] * THYROXINE (T4) TOTAL (05/04/2024 9:30 AM BIOMATHEMATICIAN) T4 8.1 5.0 - 13.0 mcg/dL 05/04/2024 11:47 AM BIOMATHEMATICIAN [facility] Blood No Phlebotomy Charged / Unknown 05/04/2024 9:30 AM BIOMATHEMATICIAN 05/04/2024 10:31 AM BIOMATHEMATICIAN us Liz L Marilia DO CHEMISTRY ORDERABLES Final Re sult Performing Organization Address City/[facility] de Phone Number [facility] [address] [place] [address] * (ABNORMAL) BASIC METABOLIC PANEL W/ CALCIUM TOTAL (05/04/2024 9:30 AM BIOMATHEMATICIAN) Only the most recent of4 resultswithin the time period is included. SODIUM 132(L) 136 - 145 mmol/L 05/04/2024 11:27 AM BIOMATHEMATICIAN [facility] POTASSIUM 4.2 3.5 - 5.1 mmol/L 05/04/2024 11:27 AM BIOMATHEMATICIAN [facility] CHLORIDE 99 98 - 107 mmol/L 05/04/2024 11:27 AM BIOMATHEMATICIAN [facility] CO2, VENOUS 27 22 - 30 mmol/L 05/04/2024 11:27 AM BIOMATHEMATICIAN [facility] ANION GAP 10.2 <18.0 mmol/L 05/04/2024 11:27 AM [facility] GLUCOSE 80 70 - 99 mg/dL 05/04/2024 11:27 AM [facility] BUN 31(H) 10 - 20 mg/dL 05/04/2024 11:27 AM [facility] CREATININE, BLOOD 1.04(H) 0.60 - 1.00 mg/dL 05/04/2024 11:27 AM [facility] BUN/CREATININE RATIO 30(H) 12 - 20 ratio 05/04/2024 11:27 AM [facility] CALCIUM 9.0 8.7 - 10.5 mg/dL 05/04/2024 11:27 AM [facility] GFR, ESTIMATED 56(L) >=60 05/04/2024 11:27 AM [facility] Comment: Creatinine Clearance is the preferred criteria for selecting drug dose adjustments in renally impaired patients. The GFR is provided as additional pertinent clinical information. GFR is reported in mL/min/1.73 sq m. Calculation based on the Chronic Kidney Disease Epidemiology Collaboration (CKD- EPI) equation refit without adjustment for race. GFR, EST. >60 >=60 024 11:27 AM [facility] GFR, EST. NONAFRICAN 52(L) >=60 05/04/2024 11:27 AM [facility] Blood No Phlebotomy Charged / Unknown 05/04/2024 9:30 AM BIOMATHEMATICIAN 05/04/2024 10:31 AM BIOMATHEMATICIAN us Liz Capellan DO CHEMISTRY ORDERABLES Final Re sult [facility] [address] [place] [address] * (ABNORMAL) POCT Glucose (04/30/2024 11:07 AM BIOMATHEMATICIAN) Only the most recent of11 resultswithin the time period is included. [facility] Signature GLUCOSE,BEDSID E POCT 129(H) 70 - 99 mg/dL 04/30/2024 11:13 AM BIOMATHEMATICIAN [facility] Comment:Patient RN Performed Blood 04/30/2024 11:0 7 AM BIOMATHEMATICIAN 04/30/2024 11:13 AM BIOMATHEMATICIAN us None Provider POINT OF CARE TESTING Final Resu lt [facility] [address] [place] [address] * Pathology Cytology Non-CLINICAL APPLICATIONS SPECIALIST (04/30/2024 7:46 AM BIOMATHEMATICIAN) Case Report Medical Cytology Report Case: [id number] Authorizing Provider: Werner Swift MD Collected: 04/30/2024 07:46 AM Ordering Location: [facility] Received: 04/30/2024 08:22 AM [facility] [place] Pathologist: Shelbi Da Silva MD PhD Specimen: Lung, bronchial washing 05/01/2024 1:01 PM BIOMATHEMATICIAN [facility] FINAL DIAGNOSIS Bronchial Washings, Right Upper and Left Upper Lobe: - Less than optimal due to scant cellularity and degeneration - Benign - Scant degenerated bronchial cells, squamous cells, and blood 05/01/2024 1:01 PM BIOMATHEMATICIAN [facility] Clinical Information Chronic Lung Infiltrates 05/01/2024 1:01 PM BIOMATHEMATICIAN [facility] Gross Description A. bronchial washing The specimen presents in a single sterile collection cup labeled with the patient's name, Kary Lubin, designated bronchial washings, right upper and left upper lobe . The specimen consists of 25 ml of thick pink fluid from which one cell block fixed in 10% neutral buffered formalin is prepared for cytologic examination. KS/dv 05/01/2024 1:01 PM BIOMATHEMATICIAN [facility] Other LUNG STRUCTURE / Unknown 04/30/2024 7:46 AM BIOMATHEMATICIAN 04/30/2024 8:22 AM BIOMATHEMATICIAN us Werner Swift MD PATHOLOGY/CYTOLOGY ORDERABLES Fi nal Result [facility] [address] [place] [address] * Smear, TB (Acid Fast Bacilli) (04/30/2024 7:46 AM BIOMATHEMATICIAN) FLUORESCENT SMEAR NO FLUORESCENT BACILLI SEEN NO FLUORESCENT BACILLI SEEN 05/01/2024 1:24 PM BIOMATHEMATICIAN [facility] Other SPECIMEN FROM LUNG OBTAINED BY BRONCHIAL WASHING PROCEDURE / Unknown Non-Phlebotomy Collection / Unknown 04/30/2024 7:46 AM BIOMATHEMATICIAN 04/30/2024 8:35 AM BIOMATHEMATICIAN us Werner Swift MD MICROBIOLOGY - GENERAL ORDERABLE S Final Result Performing Organization Address City/[facility]/ZIP Co de Phone Number [facility] [address] [place] [address], [place] * Smear, Gram Stain (04/30/2024 7:46 AM BIOMATHEMATICIAN) GRAM STAIN Moderate Squamous Epithelial cells per low power field 04/30/2024 3:11 PM BIOMATHEMATICIAN [facility] GRAM STAIN Rare Segmented Neutrophils Seen 04/30/2024 3:11 PM BIOMATHEMATICIAN [facility] GRAM STAIN Rare Gram Positive Cocci in Clusters 04/30/2024 3:11 PM BIOMATHEMATICIAN [facility] Other SPECIMEN FROM LUNG OBTAINED BY BRONCHIAL WASHING PROCEDURE / Unknown Non-Phlebotomy Collection / Unknown 04/30/2024 7:46 AM BIOMATHEMATICIAN 04/30/2024 8:35 AM BIOMATHEMATICIAN us Werner Swift MD MICROBIOLOGY - GENERAL ORDERABLE S Final Result [facility] [address] [place] [address], [place] * Culture, TB (Acid Fast Bacilli) (04/30/2024 7:46 AM BIOMATHEMATICIAN) CULTURE RESULTS NO ACID FAST BACILLI ISOLATED AFTER 6 WEEKS, FINAL RESULT 06/11/2024 3:00 PM BIOMATHEMATICIAN [facility] Culture SPECIMEN FROM LUNG OBTAINED BY BRONCHIAL WASHING PROCEDURE / Unknown Non-Phlebotomy Collection / Unknown 04/30/2024 7:46 AM BIOMATHEMATICIAN 04/30/2024 8:35 AM BIOMATHEMATICIAN Narrative [facility] - 06/11/2024 3:00 PM BIOMATHEMATICIAN [Auto-resulted by a batch job.] us Werner Swift MD MICROBIOLOGY - GENERAL ORDERABLE S Final Result Performing Organization Address City/[facility]/ZIP Co de Phone Number [facility] [address] [place] [address], [place] * Culture, Respiratory, Lower (04/30/2024 7:46 AM BIOMATHEMATICIAN) CULTURE RESULTS Few Probable usual stephanie for this specimen source 05/01/2024 10:57 PM BIOMATHEMATICIAN [facility] Culture SPECIMEN FROM LUNG OBTAINED BY BRONCHIAL WASHING PROCEDURE / Unknown Non-Phlebotomy Collection / Unknown 04/30/2024 7:46 AM BIOMATHEMATICIAN 04/30/2024 8:35 AM BIOMATHEMATICIAN us Werner Swift MD MICROBIOLOGY - GENERAL ORDERABLE S Final Result Performing Organization Address [facility]/ZIP Co de Phone Number [facility] [address] [place] [address], [place] * Culture, Fungus (04/30/2024 7:46 AM BIOMATHEMATICIAN) CULTURE RESULTS YEAST 1:34 PM BIOMATHEMATICIAN [facility] Comment:NO FURTHER WORKUP PE RFORMED Culture SPECIMEN FROM LUNG OBTAINED BY BRONCHIAL WASHING PROCEDURE / Unknown Non-Phlebotomy Collection / Unknown 04/30/2024 7:46 AM BIOMATHEMATICIAN 04/30/2024 8:35 AM BIOMATHEMATICIAN us Werner Swift MD MICROBIOLOGY - GENERAL ORDERABLE S Final Result Performing Organization Address City/[facility]/ZIP Co de Phone Number [facility] [address] [place] [address], [place] * PULM INTERV IMAGING (04/30/2024 7:14 AM BIOMATHEMATICIAN) us Werner Swift MD IMG DIAGNOSTIC ORDERABLES Final Result * RHYTHM STRIP (04/30/2024 12:00 AM BIOMATHEMATICIAN) Only the most recent of10 resultswithin the time period is included. 04/30/2024 us Provider Scan IMG ECG ORDERABLES Final Result RESULTING AGENCY * ASPERGILLUS AG SERUM, LA PUENTE ASPAG (04/29/2024 6:00 AM BIOMATHEMATICIAN) ASPERGILLUS AG <0.500 <0.5 index 04/30/2024 10:25 PM BIOMATHEMATICIAN [facility] Comment: ADDITIONAL INFORMATION This is a qualitative test and the resulted index value is not indicative of disease severity. Serial testing is recommended for patients at high risk for invasive aspergillosis. This assay was performed using the FDA-cleared Bio-Codefast Platelia Aspergillus Galactomannan EIA. Test Performed by: [place] [address] Community Support Specialist: Vivian Barnett Ph.D.; CLIA# [id number] Blood Venipuncture / Unknown 04/29/2024 6:00 AM BIOMATHEMATICIAN 04/29/2024 6:26 AM BIOMATHEMATICIAN Son Long MD LAB SEND OUTS Final Re sult [facility] US * Fungal Antibody (Asper, Histo, Blasto) (04/29/2024 6:00 AM BIOMATHEMATICIAN) HISTO CAPSUL H BAND Negative Negative 05/01/2024 11:15 AM BIOMATHEMATICIAN [facility] HISTO CAPSUL M BAND Negative Negative 05/01/2024 11:15 AM BIOMATHEMATICIAN [facility] COCCIDIOIDES IMMITIS Negative Negative 05/01/2024 11:15 AM BIOMATHEMATICIAN [facility] BLASTOMYCES DERMAT Negative Negative 05/01/2024 11:15 AM BIOMATHEMATICIAN [facility] ASPERGILLUS FUMIGATS Negative Negative 05/01/2024 11:15 AM BIOMATHEMATICIAN [facility] 48 HOUR REPORT Negative Negative 05/01/2024 11:15 AM BIOMATHEMATICIAN [facility] Blood Venipuncture / Unknown 04/29/2024 6:00 AM BIOMATHEMATICIAN 04/29/2024 6:26 AM BIOMATHEMATICIAN Son Long MD IMMUNOLOGY ORDERABLES Fi nal Result [facility] [address] [place] [address], * HISTOPLASMA AND OR BLASTOMYCES ANTIGEN, [facility] (04/29/2024 3:08 AM BIOMATHEMATICIAN) [facility], HISTOPLASMA/BLASTO MYCES AG RESULT Not Detected Not Detected 04/30/2024 3:06 PM [facility] Comment: No antigen from Histoplasma or Blastomyces detected. False negative results may occur depending on extent of disease, and/or site of infection. Repeat testing on a new specimen if clinically indicated. [facility], HISTOPLASMA/BLASTO MYCES AG VALUE Not Detected ng/mL 04/30/2024 3:06 PM [facility] Comment: ADDITIONAL INFORMATION This test was developed and its performance characteristics determined by [facility] in a manner consistent with CLIA requirements. This test has not been cleared or approved by the U.S. Food and Drug Administration. Test Performed by: [facility] - [address] [address] Community Support Specialist: Vivian Barnett Ph.D.; CLIA# [id number] Urine Non-Phlebotomy Collection / Unknown 04/29/2024 3:08 AM BIOMATHEMATICIAN 04/29/2024 3:08 AM BIOMATHEMATICIAN Son Long MD LAB SEND OUTS Final Re sult Performing Organization Address City/[facility]/ZIP Co de Phone Number [facility] [place] * Legionella Antigen (04/29/2024 3:08 AM BIOMATHEMATICIAN) Only the most recent of2 resultswithin the time period is included. LEGIONELLA URINE AG Negative Negative 04/29/2024 2:30 PM BIOMATHEMATICIAN [facility] Comment:Presumptive Negative for Legionella Pneumophila Serogroup 1 Antigen in urine, suggesting no recent or current infection. Infection due to Legionella cannot be ruled out since other serogroups and species may cause disease. Antigen may not be present in urine in early infection, and the level of antigen present in the urine may be below the detection limit of the test. Other URINE SPECIMEN / Unknown Non-Phlebotomy Collection / Unknown 04/29/2024 3:08 AM BIOMATHEMATICIAN 04/29/2024 3:08 AM BIOMATHEMATICIAN us Werner Swift MD URINE ORDERABLES Final Result Performing Organization Address [facility] Co de Phone Number [facility] [address] [place] [address], [place] * Procalcitonin (04/27/2024 9:00 PM BIOMATHEMATICIAN) PROCALCITONIN 0.04 <=0.25 ng/mL 04/27/2024 10:03 PM BIOMATHEMATICIAN [facility] Blood Venipuncture / Unknown 04/27/2024 9:00 PM BIOMATHEMATICIAN 04/27/2024 9:24 PM BIOMATHEMATICIAN us Tova Mirza PERIOPERATIVE MANAGER, INSPECTOR EXPERIMENTAL ASSEMBLY IMMUNOLOGY ORDERABLES Fin al Result [facility] [address] [place] [address] * MRSA NASAL PCR (04/27/2024 9:00 PM BIOMATHEMATICIAN) MRSA PCR RESULT Negative Negative, Invalid 04/27/2024 10:55 PM BIOMATHEMATICIAN [facility] Other NASOPHARYNGEAL SWAB / Unknown Non-Phlebotomy Collection / Unknown 04/27/2024 9:00 PM BIOMATHEMATICIAN 04/27/2024 9:24 PM BIOMATHEMATICIAN us Tova Mirza APRN, CNP MICROBIOLOGY - GENERAL OR DERABLES Final Result [facility] [address] [place] [address] * Streptococcus Pneumoniae Antigen, Urine (04/27/2024 8:59 PM BIOMATHEMATICIAN) STREP PNEUMO ANTIGEN Negative Negative 04/28/2024 2:21 PM BIOMATHEMATICIAN [facility] Comment:Negative result sugg ests no current or recent pneumococcal infection. Infection due to S. pneumoniae cannot be ruled out since the antigen present in the sample may be below the detection limit of the test. Other URINE SPECIMEN / Unknown Non-Phlebotomy Collection / Unknown 04/27/2024 8:59 PM BIOMATHEMATICIAN 04/27/2024 9:24 PM BIOMATHEMATICIAN us Tova Mirza APRN, CNP URINE ORDERABLES Final Re sult Performing Organization Address City/[facility]/ZIP Co de Phone Number [facility] [address] [place] [address], [place] * Culture, Blood [id number] (04/27/2024 5:52 PM BIOMATHEMATICIAN) Only the most recent of2 resultswithin the time period is included. CULTURE RESULTS NO GROWTH WITHIN 5 DAYS, FINAL RESULT 05/02/2024 7:00 PM BIOMATHEMATICIAN [facility] Culture BLOOD SPECIMEN / Unknown Venipuncture / Unknown 04/27/2024 5:52 PM BIOMATHEMATICIAN 04/27/2024 6:05 PM BIOMATHEMATICIAN us Maira Casiano MD MICROBIOLOGY - GENERAL ORDERA BLES Final Result [facility] [address] [place] [address], [place] * CT ANGIO CHEST W/WO CONTRAST WITH PP (POST PROCESSING) (04/27/2024 3:31 PM BIOMATHEMATICIAN) Anatomical Region Laterality Modality vascular N/A Computed Tomogra phy 04/27/2024 4:11 PM BIOMATHEMATICIAN Impressions 04/27/2024 4:13 PM BIOMATHEMATICIAN IMPRESSION: 1. No evidence of pulmonary embolism. 2. New mild patchy consolidative and ground-glass opacities in the right upper and right lower lobes, concerning for pneumonia. Recommend three-month follow-up CT chest. 3. Significant interval improvement of the ground-glass opacities in the left upper and lower lobes. 4. Unchanged mildly enlarged low right paratracheal lymph node. 5. Similar appearance of compression fractures of T8, T9, T10, and T11. An L1 burst fracture appears unchanged with moderate spinal canal stenosis. 6. Additional findings as above. Narrative 04/27/2024 4:13 PM BIOMATHEMATICIAN EXAM DESCRIPTION: CT ANGIO CHEST W/WO CONTRAST WITH PP (POST PROCESSING) REASON FOR STUDY: Cough and SOB for several weeks with elevated DDimer today. Hx of COPD, DM2, CAD, and hypothyroidism. TECHNIQUE: CT angiogram of the chest performed with intravenous contrast using helical scanning technique with dynamic intravenous contrast injection. Reconstructed coronal and sagittal MPR images reviewed. All images stored on PACS. 3D MIP images rendered on scanning unit and reviewed at time of interpretation. Automated exposure control was used as a dose optimization technique for this examination. CONTRAST TYPE/DOSE: 100mL of IOPAMIDOL 76 % IV SOLN injected via Intravenous COMPARISON: CT chest 03/17/2024; CT chest 07/13/2023 CT abdomen pelvis 06/02/2023 FINDINGS: VASCULATURE: No identified pulmonary emboli. The thoracic aorta is normal in course and caliber without dissection. Thoracic aorta contains a small amount of atherosclerotic plaque. LUNGS: Again noted are mild emphysematous changes to the lungs with mild bronchiectasis. There are mild patchy consolidative and ground-glass opacities in the right upper and right lower lobes. There has been significant interval improvement of the ground-glass opacities in the left upper and lower lobes. PLEURA: No effusion. No pneumothorax. MEDIASTINUM/MARIO: There is a small hiatal hernia. There is an unchanged mildly enlarged low right paratracheal lymph node measuring 10 mm in short axis. HEART: Heart size is normal with no pericardial effusion. AXILLA: No adenopathy. CHEST WALL: No masses. No subcutaneous air. HARDWARE/LINES/TUBES: There is a left subclavian ICD. UPPER ABDOMEN: No significant abnormality. MUSCULOSKELETAL: Similar appearance of compression fractures of T8, T9, T10, and T11. A L1 burst fracture appears unchanged with moderate spinal canal stenosis. OTHER: No significant abnormality. THIS IS AN ELECTRONICALLY VERIFIED FINAL REPORT 04/27/2024 4:11 PM - Electronically signed by Dez Hand M.D. AM: AM Report ID: [id number] Reading Location: [place] [address] Procedure Note Dze Hand MD - 04/27/2024 EXAM DESCRIPTION: CT ANGIO CHEST W/WO CONTRAST WITH PP (POST PROCESSING) REASON FOR STUDY: Cough and SOB for several weeks with elevated DDimer today. Hx of COPD, DM2, CAD, and hypothyroidism. TECHNIQUE: CT angiogram of the chest performed with intravenous contrast using helical scanning technique with dynamic intravenous contrast injection. Reconstructed coronal and sagittal MPR images reviewed. All images stored on PACS. 3D MIP images rendered on scanning unit and reviewed at time of interpretation. Automated exposure control was used as a dose optimization technique for this examination. CONTRAST TYPE/DOSE: 100mL of IOPAMIDOL 76 % IV SOLN injected via Intravenous COMPARISON: CT chest 03/17/2024; CT chest 07/13/2023 CT abdomen pelvis 06/02/2023 FINDINGS: VASCULATURE: No identified pulmonary emboli. The thoracic aorta is normal in course and caliber without dissection. Thoracic aorta contains a small amount of atherosclerotic plaque. LUNGS: Again noted are mild emphysematous changes to the lungs with mild bronchiectasis. There are mild patchy consolidative and ground-glass opacities in the right upper and right lower lobes. There has been significant interval improvement of the ground-glass opacities in the left upper and lower lobes. PLEURA: No effusion. No pneumothorax. MEDIASTINUM/MARIO: There is a small hiatal hernia. There is an unchanged mildly enlarged low right paratracheal lymph node measuring 10 mm in short axis. HEART: Heart size is normal with no pericardial effusion. AXILLA: No adenopathy. CHEST WALL: No masses. No subcutaneous air. HARDWARE/LINES/TUBES: There is a left subclavian ICD. UPPER ABDOMEN: No significant abnormality. MUSCULOSKELETAL: Similar appearance of compression fractures of T8, T9, T10, and T11. A L1 burst fracture appears unchanged with moderate spinal canal stenosis. OTHER: No significant abnormality. THIS IS AN ELECTRONICALLY VERIFIED FINAL REPORT 04/27/2024 4:11 PM - Electronically signed by Dez Hand M.D. AM: AM Report ID: [id number] Reading Location: [place] [address] IMPRESSION: 1. No evidence of pulmonary embolism. 2. New mild patchy consolidative and ground-glass opacities in the right upper and right lower lobes, concerning for pneumonia. Recommend three-month follow-up CT chest. 3. Significant interval improvement of the ground-glass opacities in the left upper and lower lobes. 4. Unchanged mildly enlarged low right paratracheal lymph node. 5. Similar appearance of compression fractures of T8, T9, T10, and T11. An L1 burst fracture appears unchanged with moderate spinal canal stenosis. 6. Additional findings as above. Maira Casiano MD [facility] CT ORDERABLES Final Resul t * RSV,SARS-COV-2,INFLUENZA A&B BY PCR (04/27/2024 1:21 PM BIOMATHEMATICIAN) FLU A Negative Negative, Error 04/27/2024 2:19 PM BIOMATHEMATICIAN [facility] FLU B Negative Negative 04/27/2024 2:19 PM BIOMATHEMATICIAN [facility] RESP SYNC VIRUS Negative Negative 2:19 PM BIOMATHEMATICIAN [facility] SARSCOV2 NOT DETECTED (Reference Range for this test is Not Detected) 04/27/2024 2:19 PM BIOMATHEMATICIAN [facility] Comment:This test was perfor med by a Reverse Spool Carrier PCR Method. Swab NASOPHARYNGEAL SWAB / Unknown Non-Phlebotomy Collection / Unknown 04/27/2024 1:21 PM BIOMATHEMATICIAN 04/27/2024 1:31 PM BIOMATHEMATICIAN Narrative [facility] - 04/27/2024 2:19 PM BIOMATHEMATICIAN This test has not been FDA cleared or approved; the test has been authorized by FDA under an Emergency Use Authorization (EUA) for use by laboratories certified under the CLIA that meet the requirements to perform moderate, high or waived complexity tests. Authorized Fact Sheets about this test for providers and patients are available at: https://www.fda.gov/medical-devices/lhriylntn-ibstjrkfty-mfzmxjb-devices/emergen -us e-authorizations Maira Casiano MD MICROBIOLOGY - GENERAL ORDERA BLES Final Result Performing Organization Address City/[facility]/ZIP Co de Phone Number [facility] [place] [address] * TROPONIN I, HIGH SENSITIVITY (HSTRP) (04/27/2024 1:08 PM BIOMATHEMATICIAN) TROPONIN I, HIGH SENSITIVITY- AYALA <3 <=14 ng/L 04/27/2024 1:48 PM BIOMATHEMATICIAN [facility] Comment: High-sensitivity troponin I results are reported in ng/L making the result appear to be 1,000 times higher than the contemporary troponin I value which is reported in ng/ml. Results from [place]. Blood Venipuncture / Unknown 04/27/2024 1:08 PM BIOMATHEMATICIAN 04/27/2024 1:21 PM BIOMATHEMATICIAN Maira Casiano MD CHEMISTRY ORDERABLES Final Re sult Performing Organization Address City/[facility]/ZIP Co de Phone Number [facility] [address] [place] [address] * Blue Top Tube (04/27/2024 1:08 PM BIOMATHEMATICIAN) Blood No Phlebotomy Charged / Unknown 04/27/2024 1:08 PM BIOMATHEMATICIAN 04/27/2024 1:22 PM BIOMATHEMATICIAN Maira Casiano MD HEMATOLOGY ORDERABLES Final R esult Performing Organization Address City/[facility]/ZIP Co de Phone Number [facility] [place] [address] * (ABNORMAL) D-DIMER [id number] (04/27/2024 1:08 PM BIOMATHEMATICIAN) D DIMER 2.63(H) <0.50 mcg/mL FEU 04/27/2024 1:50 PM BIOMATHEMATICIAN [facility] Blood No Phlebotomy Charged / Unknown 04/27/2024 1:08 PM BIOMATHEMATICIAN 04/27/2024 1:22 PM BIOMATHEMATICIAN Narrative [facility] - 04/27/2024 1:50 PM BIOMATHEMATICIAN The FDA has approved this method to exclude the diagnosis of DVT and/or PE at the cutoff value of <0.50 mcg/mL FEU. Maira Casiano MD HEMATOLOGY ORDERABLES Final R esult Performing Organization Address [facility] Co de Phone Number [facility] [address] [place] [address] * B-Type Natriuretic Peptide (BNP) (04/27/2024 1:08 PM BIOMATHEMATICIAN) B TYPE NATRIURETIC PEPTIDE 99 <100 pg/mL 04/27/2024 1:50 PM BIOMATHEMATICIAN [facility] Blood Venipuncture / Unknown 04/27/2024 1:08 PM BIOMATHEMATICIAN 04/27/2024 1:21 PM BIOMATHEMATICIAN Maira Casiano MD CHEMISTRY ORDERABLES Final Re sult Performing Organization Address City/[facility]/ZIP Co de Phone Number [facility] [address] [place] [address] * EKG 12 LEAD (04/27/2024 12:51 PM BIOMATHEMATICIAN) Ventricular Rate 72 BPM EXTERNAL EKG Atrial Rate 72 BPM EXTERNAL EKG P-R Interval 166 ms EXTERNAL EKG QRS Duration 88 ms EXTERNAL EKG Q-T Duration 420 ms EXTERNAL EKG QTC CALCULATION 459 ms EXTERNAL EKG P Barnard 44 degrees EXTERNAL EKG R Barnard -25 degrees EXTERNAL EKG T Barnard 26 degrees EXTERNAL EKG 04/27/2024 12:5 1 PM BIOMATHEMATICIAN Impressions EXTERNAL EKG - 04/28/2024 5:23 PM BIOMATHEMATICIAN Normal sinus rhythm Low voltage QRS Cannot rule out Anterior infarct , age undetermined Abnormal ECG When compared with ECG of 16-MAR-2024 11:24, premature ventricular complexes are no longer present QT has shortened Confirmed by MINISTERIO MILLER ([id number]) on 04/28/2024 5:23:21 PM Narrative Procedure Note Ministerio Miller MD - 04/28/2024 IMPRESSION: Normal sinus rhythm Low voltage QRS Cannot rule out Anterior infarct , age undetermined Abnormal ECG When compared with ECG of 16-MAR-2024 11:24, premature ventricular complexes are no longer present QT has shortened Confirmed by MINISTERIO MILLER ([id number]) on 04/28/2024 5:23:21 PM us Maira Casiano MD IMG ECG ORDERABLES Final Resu lt EXTERNAL EKG * EKG SCAN (04/27/2024 12:00 AM BIOMATHEMATICIAN) 04/27/2024 us Provider Scan IMG ECG ORDERABLES Final Result RESULTING AGENCY * CT CHEST W CONTRAST (03/17/2024 10:51 AM CDT) Anatomical Region Laterality Modality Chest N/A Computed Tomogra phy 03/17/2024 11:4 0 AM CDT Impressions 03/17/2024 11:43 AM CDT IMPRESSION: Bilateral pulmonary opacities, greater on the left lung which are likely infectious. Follow-up CT in 3 months is recommended. Improved right upper lobe nodule, now ground-glass and 5 mm in size. This is likely infectious or inflammatory but could be re-evaluated on follow-up. Small pleural effusions. Fluid and debris in the esophagus which could be from gastroesophageal reflux. Multiple thoracic spine fractures including healing L1 fracture. Additional findings as above. Narrative 03/17/2024 11:43 AM CDT EXAM DESCRIPTION: CT CHEST W CONTRAST REASON FOR STUDY: Pneumonia, abnormal CXR yesterday. Hx CHF<COPD and former smoker. TECHNIQUE: CT scan of the chest performed with intravenous contrast using helical scanning technique with dynamic intravenous contrast injection. Reconstructed coronal and sagittal MPR images reviewed. All images stored on PACS. Automated exposure control was used as a dose optimization technique for this examination. CONTRAST TYPE/DOSE: 100mL of IOPAMIDOL 76 % IV SOLN injected via Intravenous COMPARISON: CT chest 02/21/2024, chest radiograph 03/16/2024 REFERENCE: Per ACR white paper recommendations, unless otherwise specified no follow-up imaging is recommended for incidental renal and adrenal lesions per consensus recommendations based on imaging criteria. Further lab evaluation could be pursued based on clinical findings. FINDINGS: HEART: The heart size is normal with no pericardial effusion. MEDIASTINUM/MARIO: No identified masses or abnormal nodes. No thoracic aortic aneurysm. There is fluid and debris in the esophagus. LUNGS/PLEURA: Pulmonary emphysema. Ground-glass left upper lobe opacity with additional scattered patchy opacities, greatest in the left lung. 8 mm nodular opacity in the right upper lobe reported on prior CT now is a 5 mm area of ground-glass opacity (axial image 52). Small pleural effusions . AXILLA/CHEST WALL: No adenopathy. No masses. UPPER ABDOMEN: No acute findings. MUSCULOSKELETAL: There is again seen fracture at T8, T9, T10, T11 and L1. Increasing sclerosis at L1 suggests healing of fracture. OTHER: Left chest wall cardiac device. THIS IS AN ELECTRONICALLY VERIFIED FINAL REPORT 03/17/2024 11:40 AM - Electronically signed by Filipe Anaya M.D. JR: Report ID: [id number] Reading Location: [place] [address] Procedure Note Filipe Anaya MD - 03/17/2024 EXAM DESCRIPTION: CT CHEST W CONTRAST REASON FOR STUDY: Pneumonia, abnormal CXR yesterday. Hx CHF<COPD and former smoker. TECHNIQUE: CT scan of the chest performed with intravenous contrast using helical scanning technique with dynamic intravenous contrast injection. Reconstructed coronal and sagittal MPR images reviewed. All images stored on PACS. Automated exposure control was used as a dose optimization technique for this examination. CONTRAST TYPE/DOSE: 100mL of IOPAMIDOL 76 % IV SOLN injected via Intravenous COMPARISON: CT chest 02/21/2024, chest radiograph 03/16/2024 REFERENCE: Per ACR white paper recommendations, unless otherwise specified no follow-up imaging is recommended for incidental renal and adrenal lesions per consensus recommendations based on imaging criteria. Further lab evaluation could be pursued based on clinical findings. FINDINGS: HEART: The heart size is normal with no pericardial effusion. MEDIASTINUM/MARIO: No identified masses or abnormal nodes. No thoracic aortic aneurysm. There is fluid and debris in the esophagus. LUNGS/PLEURA: Pulmonary emphysema. Ground-glass left upper lobe opacity with additional scattered patchy opacities, greatest in the left lung. 8 mm nodular opacity in the right upper lobe reported on prior CT now is a 5 mm area of ground-glass opacity (axial image 52). Small pleural effusions . AXILLA/CHEST WALL: No adenopathy. No masses. UPPER ABDOMEN: No acute findings. MUSCULOSKELETAL: There is again seen fracture at T8, T9, T10, T11 and L1. Increasing sclerosis at L1 suggests healing of fracture. OTHER: Left chest wall cardiac device. THIS IS AN ELECTRONICALLY VERIFIED FINAL REPORT 03/17/2024 11:40 AM - Electronically signed by Filipe Anaya M.D., JR: Report ID: [id number] Reading Location: [place] [address] IMPRESSION: Bilateral pulmonary opacities, greater on the left lung which are likely infectious. Follow-up CT in 3 months is recommended. Improved right upper lobe nodule, now ground-glass and 5 mm in size. This is likely infectious or inflammatory but could be re-evaluated on follow-up. Small pleural effusions. Fluid and debris in the esophagus which could be from gastroesophageal reflux. Multiple thoracic spine fractures including healing L1 fracture. Additional findings as above. Maggie Molina MD IMG CT ORDERABLES Final Resul t * (ABNORMAL) Hemoglobin A1C (if indicated) (03/17/2024 4:32 AM CDT) HGB-A1C 6.8(H) 4.0 - 6.0 % 03/17/2024 5:31 AM CDT [facility] Est Average Glucose 148.5 mg/dL 03/17/2024 5:31 AM CDT [facility] Blood Venipuncture / Unknown 03/17/2024 4:32 AM CDT 03/17/2024 5:10 AM CDT Narrative [facility] - 03/17/2024 5:31 AM CDT HEMOGLOBIN A1C: DIABETIC PATIENTS: WELL-CONTROLLED: 6.2 - 7.0 INTERMEDIATE WELL-CONTROLLED: 7.0 - 9.0 POORLY-CONTROLLED: >9.0 Result [facility] Odette Jay APRN, CNP CHEMISTRY ORDERABLES Final Result Performing Organization Address City/[facility]/ZIP Co de Phone Number [facility] [address] [place] [address] * PODIATRY CONSULT (01/08/2024 12:00 AM CDT) 01/08/2024 Keith Craft MD GENERIC SCAN ORDERS CONSULT Loren rasmussen Result SCAN * Stool, Occult Blood, Diagnostic, via Guai[place] (06/02/2023 5:05 PM BIOMATHEMATICIAN) OCCULT BLOOD DIAG, GI BLEED Negative Negative 06/02/2023 5:23 PM BIOMATHEMATICIAN [facility] Stool STOOL SPECIMEN / Unknown Non-Phlebotomy Collection / Unknown 06/02/2023 5:05 PM BIOMATHEMATICIAN 06/02/2023 5:08 PM BIOMATHEMATICIAN us Maggie Molina MD BODY FLUIDS & STOOLS ORDERABL ES Final Result [facility] [address] [place] [address] * RADHA SCREENING BILATERAL DIGITAL W CAD W CLARI (02/26/2023 1:23 PM CDT) Anatomical Region Laterality Modality breast Bilateral Mammography 02/26/2023 2:41 PM CDT Narrative 02/27/2023 10:42 AM CDT - RADHA SCREENING BILATERAL DIGITAL W CAD W CLARI BILATERAL DIGITAL SCREENING MAMMOGRAM 3D/2D WITH CAD WITH CLEAVAGE MEDIOLATERAL OBLIQUE CRANIOCAUDAL: 02/26/2023 The study was acquired using digital technology and interpreted from soft copy. Current study was also evaluated with ICAD version 7.2. 2D digital mammographic views, as well as 3D digital tomosynthesis were performed in the CC and MLO projections. CLINICAL: Routine screening. Patient has no complaints. No personal history of cancer. Maternal cousin had breast cancer. COMPARISONS: Comparison is made to exams dated: 11/28/2021, 09/21/2021, 11/30/2020, 11/02/2020, and 08/05/2018 [facility]. BREAST TISSUE:The tissue of both breasts is predominantly fatty. FINDINGS: A cardiac pacemaker is present on the left. There are benign calcifications in both breasts. No significant masses, calcifications, or other findings are seen in either breast. There has been no significant interval change. IMPRESSION: BI-RAD 2 BENIGN There is no mammographic evidence of malignancy. A 1 year screening mammogram is recommended. A letter will be sent to the patient with these results. The patient will be entered into a reminder system with a target due date of 1 year for her next screening exam. Electronically signed by: Cris Sosa M.D. ll/:02/26/2023 19:37:54 Bus Monitor(s): Grace Barr RT(R)(M), [facility] letter sent: Normal Exam Reading location: [place] BI-RADS: 2 Benign Procedure Note Cris Sosa MD - 02/27/2023 - RADHA SCREENING BILATERAL DIGITAL W CAD W CLARI BILATERAL DIGITAL SCREENING MAMMOGRAM 3D/2D WITH CAD WITH CLEAVAGE MEDIOLATERAL OBLIQUE CRANIOCAUDAL: 02/26/2023 The study was acquired using digital technology and interpreted from soft copy. Current study was also evaluated with ICAD version 7.2. 2D digital mammographic views, as well as 3D digital tomosynthesis were performed in the CC and MLO projections. CLINICAL: Routine screening. Patient has no complaints. No personal history of cancer. Maternal cousin had breast cancer. COMPARISONS: Comparison is made to exams dated: 11/28/2021, 09/21/2021, 11/30/2020, 11/02/2020, and 08/05/2018 [facility]. BREAST TISSUE:The tissue of both breasts is predominantly fatty. FINDINGS: A cardiac pacemaker is present on the left. There are benign calcifications in both breasts. No significant masses, calcifications, or other findings are seen in either breast. There has been no significant interval change. IMPRESSION: BI-RAD 2 BENIGN There is no mammographic evidence of malignancy. A 1 year screening mammogram is recommended. A letter will be sent to the patient with these results. The patient will be entered into a reminder system with a target due date of 1 year for her next screening exam. Electronically signed by: Cris Sosa M.D. ll/:02/26/2023 19:37:54 Bus Monitor(s): RT Jaun(R)(M), [facility] letter sent: Normal Exam Reading location: [place] BI-RADS: 2 Benign us Keith Craft MD IMG MAMMO ORDERABLES Final Resul t * HEPATITIS C ANTIBODY (12/17/2022 11:39 AM CDT) hepatitis C antibody 0.06 <1 S/CO [facility] ARCH [id number] B 12/17/2022 11:37 PM CDT [facility] Comment: Signal/Cutoff ratio < 0.79 is Nondetected Signal/Cutoff ratio 0.80-0.99 is Grayzone Signal/Cutoff ratio > 0.99 is Detected Supplemental assays are recommended if signal/cutoff ratio is >/=1.00. Signal/cutoff ratio result >/= 5.00 is 97% predictive of positivity for recombinant immunoblot assay (RIBA) and will be reported to the [place] Department of Public Health as required. Blood Venipuncture / Unknown 12/17/2022 11:39 AM CDT 12/17/2022 11:39 AM CDT us Keith Craft MD CHEMISTRY ORDERABLES Final Resul t [facility] [address] [place] [address], [place] * [facility] BONE DENSITOMETRY AXIAL SKELETON (04/03/2022 9:46 AM BIOMATHEMATICIAN) Anatomical Region Laterality Modality BODY N/A Computed Radiogr aphy 04/03/2022 3:04 PM BIOMATHEMATICIAN Impressions 04/03/2022 3:06 PM BIOMATHEMATICIAN IMPRESSION: According to the World Health Organization criteria, based on the left femoral neck bone mineral density (T-score -3.5 ), the patient has osteoporosis . REFERENCE: Bone mineral density: Normal (T-score above or = -1.0) Low bone mass (T-score between -1.0 and -2.5) replaces the previously used term osteopenia Osteoporosis (T-score = or below -2.5) Medical evaluation for secondary causes of low bone mineral density may be appropriate. FRAX is a World Health Organization validated fracture risk assessment tool that calculates a person's 10 year probability of a major osteoporosis related fracture and hip fracture. According to the National Osteoporosis Foundation guidelines, postmenopausal women and men age 50 or older with low bone mass and a 10 year probability of a major osteoporosis related fracture = or greater than 20% or a 10 year probability of a hip fracture = or greater than 3% should be considered for treatment. For further information, including treatment recommendations, please refer to the 2013 ISCD Official Positions (http://www.iscd.org) and the NOF's Clinician's Guide to Prevention and Treatment of Osteoporosis (http://www.nof.org/professionals/clinical-guidelines) Narrative 04/03/2022 3:06 PM BIOMATHEMATICIAN EXAM DESCRIPTION: [facility] BONE DENSITOMETRY AXIAL SKELETON REASON FOR STUDY: 71 y/o year old F . Screening Flight Control Specialist/Model: Tink (S/N [id number]) COMPARISON: 09/04/2011 FINDINGS: LEFT FEMORAL NECK: T-score is -3.5 LEFT HIP: T-score is -3.2 LUMBAR SPINE L1-L4: T-score is -1.1 There has been a statistically significant 8.0% decrease in lumbar spine bone mineral density and statistically significant 17.6% decrease in left hip bone mineral density compared with 09/04/2011. A FRAX score is not reported unless all of the following criteria are met: (1) T-score between -1 and -2.5, (2) a previously untreated postmenopausal female or male aged at least 50 years, and (3) has an evaluable hip THIS IS AN ELECTRONICALLY VERIFIED FINAL REPORT 04/03/2022 3:04 PM - Electronically signed by Filipe Anaya M.D. JR: Report ID: [id number] Reading Location: [id number] Procedure Note Filipe Anaya MD - 04/03/2022 EXAM DESCRIPTION: [facility] BONE DENSITOMETRY AXIAL SKELETON REASON FOR STUDY: 71 y/o year old F . Screening Flight Control Specialist/Model: Tink (S/N [id number]) COMPARISON: 09/04/2011 FINDINGS: LEFT FEMORAL NECK: T-score is -3.5 LEFT HIP: T-score is -3.2 LUMBAR SPINE L1-L4: T-score is -1.1 There has been a statistically significant 8.0% decrease in lumbar spine bone mineral density and statistically significant 17.6% decrease in left hip bone mineral density compared with 09/04/2011. A FRAX score is not reported unless all of the following criteria are met: (1) T-score between -1 and -2.5, (2) a previously untreated postmenopausal female or male aged at least 50 years, and (3) has an evaluable hip THIS IS AN ELECTRONICALLY VERIFIED FINAL REPORT 04/03/2022 3:04 PM - Electronically signed by Filipe Anaya M.D. JR: Report ID: [id number] Reading Location: [place] [address] IMPRESSION: According to the World Health Organization criteria, based on the left femoral neck bone mineral density (T-score -3.5 ), the patient has osteoporosis . REFERENCE: Bone mineral density: Normal (T-score above or = -1.0) Low bone mass (T-score between -1.0 and -2.5) replaces the previously used term osteopenia Osteoporosis (T-score = or below -2.5) Medical evaluation for secondary causes of low bone mineral density may be appropriate. FRAX is a World Health Organization validated fracture risk assessment tool that calculates a person's 10 year probability of a major osteoporosis related fracture and hip fracture. According to the National Osteoporosis Foundation guidelines, postmenopausal women and men age 50 or older with low bone mass and a 10 year probability of a major osteoporosis related fracture = or greater than 20% or a 10 year probability of a hip fracture = or greater than 3% should be considered for treatment. For further information, including treatment recommendations, please refer to the 2013 ISCD Official Positions (http://www.iscd.org) and the NOF's Clinician's Guide to Prevention and Treatment of Osteoporosis (http://www.nof.org/professionals/clinical-guidelines) us Keith Craft MD IMG DEXA ORDERABLES Final Result * DIABETIC BILATERAL RETINAL IMAGING WITH COMPUTERIZED INTERPRETATION (03/02/2022 10:32 AM CDT) DIABETIC BILATERAL DIGITAL RETINAL IMAGING No Diabetic Retinopathy Detected: ETDRS level 20 or lower and no Diabetic Macular Edema [facility] Comment: Next Steps: Retest in 12 months IDx Submission ID: [id number] Results were produced by a system that provides an artificial intelligence (AI) interpretation A positive result indicates a high risk of diabetic retinopathy with a severity of ETDRS level 35 or higher and/or macular edema. IDx-DR diabetic retinopathy exam does not replace a comprehensive eye exam. Other 03/02/2022 10:3 2 AM CDT Keith Craft MD OUTPT PROCEDURE ORDERABLES Final Result EXTERNAL EKG DIGITAL DIAGNOSTICS from Last 3 Months or Most Recently Relevant to Health Maintenance Additional Health Concerns Infection Onset Date Last Indicated Stenotrophomonas maltophilia Comment:Must have a follow up respiratory sample to remove isolation flag. 10/20/2021 10/20/2021 Insurance MEDICARE C [employer] Advance Directives Documents on File Type Date Recorded Patient Wealth Management Manager Expl anation Advance Care Planning Discussion 09/19/2022 1:09 PM ACP Discussion Recor d/ 09/19/22 * Full Code (Latest Code Status on File) Date Activated Date Inactivated Comments 04/28/2024 12:04 AM CPR-Full Vicky tment: FULL ARREST: Attempt Resuscitation/CPR wit intubation and mechanical ventilation. PRE-ARREST: Use entire range of life support measures to stabilize the patient. * Full Code Date Activated Date Inactivated Comments 03/23/2024 4:10 PM 04/28/2024 12:04 AM * Full Code Date Activated Date Inactivated Comments 03/16/2024 5:42 PM 03/23/2024 4:10 PM CPR-Full T reatment: FULL ARREST: Attempt Resuscitation/CPR wit intubation and mechanical ventilation. PRE-ARREST: Use entire range of life support measures to stabilize the patient. * Full Code Date Activated Date Inactivated Comments 07/25/2023 3:51 PM 07/27/2023 6:13 PM * Full Code Date Activated Date Inactivated Comments 07/13/2023 5:27 PM 07/14/2023 3:21 PM CPR-Full Manjinder atment: FULL ARREST: Attempt Resuscitation/CPR wit intubation and mechanical ventilation. PRE-ARREST: Use entire range of life support measures to stabilize the patient. Care Teams Pacu Rn Relationship Specialty Start Date End Date Liz Capellan DO [address] [address] PCP - General Family Medicine 12/27/23 Quang Locke DO Gastroenterology 01/18/16 [place] [id number] [address] [address] 05/25/21 Werner Swift MD #2 [place] [address] Consulting Physician Pulmonary Disease 01/30/22
--- OUTSIDE RECORDS SUMMARY | 2024-07-10 13:42 | XMS_ITS | Encounter Summary ---
Author Organization [facility] Address [address] [place] [address] Phone Care Team Providers Care Sludge Control Attendant Name Role Phone Quang Locke Unavailable [phone] Keith Craft MD Primary Care Provider [phone] Bri Rollins RN Unavailable Unavailable Silvio Schulte MD Unavailable [phone] Bri Rollins RN Unavailable Unavailable Werner Swift MD Unavailable Liz Capellan DO Primary Care Provider [phone] Reason for Visit * Reason Comments Medication Refill Encounter Details Date Type Department Care Team (Late st Contact Info) Description 11/01/2022 Refill [facility] #2 [place] [address] Keith Craft MD [address]1 [place] [address] Medication Refill Social History Tobacco Use Types [...] Telephone Encounter - Gloria Cornejo RN - 11/01/2022 9:53 AM CDT Medication warning Per nursing clinical [...] (6 Month Refill Only) Protocol Passed - 11/01/2022 9:49 AM Passed - Visit with relevant provider in past 6 months or upcoming 90 days Recent Visits Date Type Provider Dept 09/10/22 Office Visit Keith Craft MD [facility] 07/18/22 Office Visit Kerri Kauffman, TRAINING AND DEVELOPMENT REP, PERMIT AGENT [facility] [place] 06/07/22 Office Visit Keith Craft MD [...] for at least 6 months DULoxetine (CYMBALTA) [address] Particles [Pharmacy Med Name: DULOXETINE HYDROCHLORIDE 60MG CAPSULE DR PART] 90 Capsule 1 Sig: TAKE ONE (1) CAPSULE BY MOUTH DAILY. TAKE WITH 30 MG CAPSULE SNRI (6 Month Refill Only) Protocol Passed - 11/01/2022 9:49 AM Passed - Visit with relevant provider in past 6 months or upcoming 90 days Recent Visits Date Type Provider Dept 09/10/22 Office Visit Keith Craft MD [facility] 07/18/22 Office Visit Kerri Kauffman APRN, PERMIT AGENT [facility] [place] 06/07/22 Office Visit Keith Craft MD [...] Reuptake Inhibitors for at least 6 months levothyroxine (SYNTHROID) 50 MCG Tablet [Pharmacy Med Name: LEVOTHYROXINE SODIUM 50MCG TABLET] 90 Tablet 2 Sig: TAKE ONE TABLET BY MOUTH DAILY Thyroid Hormones Protocol Passed - 11/01/2022 9:49 AM Passed - Visit with relevant provider in past 12 months or upcoming 90 days Recent Visits Date Type Provider Dept 09/10/22 Office Visit Keith Craft MD [facility] 07/18/22 Office Visit Kerri Kauffman APRN, PERMIT AGENT [facility] [place] [facility] 06/07/22 Office Visit Keith Craft MD [facility] 03/02/22 Procedure Visit [facility] [place] 03/02/22 Office Visit Keith Craft MD [facility] 11/03/21 Office Visit Keith Craft MD [facility] Showing recent visits within past 365 days and meeting all other requirements Future Appointments Date Type Provider Dept 12/10/22 Appointment Keith Carft MD [facility] Showing future appointments within next 90 days and meeting all other requirements Passed - Normal TSH in past 12 months TSH Date Value Ref Range Status 03/02/2022 0.893 0.270 - 4.200 mIU/L Final documented in this encounter Plan of Treatment Upcoming Encounters Date Type Department Care Team (Late st Contact Info) Description 07/13/2024 1:30 PM DISPATCHER SHIP PILOT Office Visit [facility] - [place] [address]2 [place] [address] Liz Capellan L, DO 2 [facility] [address] [place] [address] 07/20/2024 2:15 PM DISPATCHER SHIP PILOT [facility] [place] [address]2 [place] [address] Ana Vivar N, TRAINING AND DEVELOPMENT REP, PERMIT AGENT 2 [facility] [address] [place] [address] Yasmin Restrepo MD #[address] [phone] 07/31/2024 1:00 PM DISPATCHER SHIP PILOT [facility] [address] [place] [address] Werner Swift MD #2 [place] [address] Discharge Disposition: Discharged to home or Selfcare 08/03/2024 1:15 PM CDT [facility] - Pulmonology & Sleep Medicine - [place] [address]2 [place] [address] Werner Swift MD #2 [place] [address] 09/02/2024 2:00 PM CDT [facility] 1 [place] [address] Werner Swift MD #2 [place] [address] Discharge Disposition: Discharged to home or Selfcare 10/09/2024 2:30 PM CDT Office Visit [facility] - Family [facility] #2 [place] [address] Liz Capellan, DO [address] [address] documented as of this encounter Goals Goal [...] Zones/Action plan education. I will notify my Heater Room Helper if my symptoms fall in the y [...] 19 04/18/2023 04/18/2023 04/28/2023 12:1 6 AM DISPATCHER SHIP PILOT COVID - 19 07/13/2023 07/13/2023 07/23/2023 12:1 6 AM DISPATCHER SHIP PILOT Respiratory Rule Out - RPA 03/17/2024 03/17/2024 1 3:36 PM CDT COVID - 19 04/27/2024 04/27/2024 04/27/2024 2:19 PM DISPATCHER SHIP PILOT Assessment Noted Time PHQ-9 Depression Total Score: 1 03/07/20 21 10:29 AM CDT documented as of this encounter Care Teams Sludge Control Attendant Relationship Specialty Start Date End Date Keith Craft MD PCP - General Family Medicine 01/14/19 12/26/23 Liz Capellan DO [address] [address] PCP - General Family Medicine 12/27/23 uQang Locke DO Gastroenterology 01/18/16 Bri Rollins RN [place] Heater Room Helper 03/07/21 05/22/23 [place] [address] [address] 05/25/21 Bri Rollins RN [place] Nurse Heater Room Helper 03/07/21 05/23/23 Werner Swift MD [address] [place] [address] Consulting Physician Pulmonary Disease 01/30/22 documented as of this encounter
--- OUTSIDE RECORDS SUMMARY | 2024-07-10 13:42 | XMS_ITS | Encounter Summary ---
Author Organization [facility] Address [address] [place] [address] Phone Care Team Providers Care Public Relations Account Supervisor Name Role Phone Quang Locke Unavailable [phone] Keith Craft MD Primary Care Provider [phone] Bri Rollins RN Unavailable Unavailable Silvio Schulte MD Unavailable [phone] Bri Rollins RN Unavailable Unavailable Werner Swift MD Unavailable Liz Capellan DO Primary Care Provider [phone] Reason for Visit * Reason Comments Medication Refill Encounter Details Date Type Department Care Team (Late st Contact Info) Description 12/26/2022 Refill [facility] #2 [place] [address] Keith Craft MD #1 [place] [address] Medication Refill Social History Tobacco Use Types [...] Telephone Encounter - Gloria Cornejo RN - 12/27/2022 11:11 AM CDT Name from pharmacy: VITAMIN D [id number] CAPSULE Will file in chart as: ergocalciferol (VITAMIN D) 39361 UNIT Capsule The original prescription was discontinued on 11/01/2022 by Keith Craft MD * Telephone Encounter - Gloria Cornejo RN - 12/27/2022 11:10 AM CDT Component Ref Range & Units 10 d ago (12/17/22) 1 yr ago (04/18/21) 1 yr ago (02/08/21) 3 yr ago (11/02/19) 3 yr ago (07/27/19) 3 yr ago (01/14/19) VITAMIN D, 25 HYDROX >=30 ng/mL 99 67 83 >=60 >=60 >=60 Resulting Agency [facility] [place] documented in this encounter Plan of Treatment Upcoming Encounters Date Type Department Care Team (Late st Contact Info) Description 07/13/2024 1:30 PM EXECUTIVE SALES ASSISTANT Office Visit [facility] - Family Medicine - [place] [address]2 [place] [address] Liz Capellan, DO [address] [facility] [address] [place] [address] 07/20/2024 2:15 PM EXECUTIVE SALES ASSISTANT [facility] [place] [address]2 [place] [address] Ana Vivar N, PRODUCT LISTER, ROOF SERVICE TECHNICIAN 2 [facility] [address] [place] [address] Yasmin Restrepo MD #[address] [phone] 07/31/2024 1:00 PM EXECUTIVE SALES ASSISTANT [facility] [address] [place] [address] Werner Swift MD [address]2 [place] [address] Discharge Disposition: Discharged to home or Selfcare 08/03/2024 1:15 PM CDT Office Visit [facility] - Pulmonology & Sleep Medicine - [place] #2 [place] [address] Werner Swift MD #2 [place] [address] 09/02/2024 2:00 PM CDT [facility] 1 [place] [address] Werner Swift MD #[address] [place] [address] Discharge Disposition: Discharged to home or Selfcare 10/09/2024 2:30 PM CDT Office Visit [facility] - [facility] [place] [address] [place] [address] Liz Capellan, DO [address] [facility] [place] [place] [place] [address] documented as of this encounter Goals Goal [...] Zones/Action plan education. I will notify my Filler Operator if my symptoms fall in the [...] 19 04/18/2023 04/18/2023 04/28/2023 12:1 6 AM EXECUTIVE SALES ASSISTANT COVID - 19 07/13/2023 07/13/2023 07/23/2023 12:1 6 AM EXECUTIVE SALES ASSISTANT Respiratory Rule Out - RPA 03/17/2024 03/17/2024 1 3:36 PM CDT COVID - 19 04/27/2024 04/27/2024 04/27/2024 2:19 PM EXECUTIVE SALES ASSISTANT Assessment Noted Time PHQ-9 Depression Total Score: 1 03/07/20 10:29 AM CDT documented as of this encounter Care Teams Public Relations Account Supervisor Relationship Specialty Start Date End Date Keith Craft MD PCP - General Family Medicine 01/14/19 12/26/23 Liz Capellan DO [address] [address] PCP - General Family Medicine 12/27/23 Quang Locke DO Gastroenterology 01/18/16 Bri Rollins RN [place] Filler Operator 03/07/21 05/22/23 [place] [address] [address] 05/25/21 Bri Rollins RN [place] Nurse Filler Operator 03/07/21 05/23/23 Werner Swift MD #2 [place] [address] Consulting Physician Pulmonary Disease 01/30/22 documented as of this encounter
--- OUTSIDE RECORDS SUMMARY | 2024-07-10 13:42 | XMS_ITS | Encounter Summary ---
Author Organization [facility] Address [address] [place] [address] Phone Care Team Providers Care Residential Door Installer Name Role Phone Quang Locke Unavailable [phone] Keith Craft MD Primary Care Provider [phone] rBi Rollins RN Unavailable Unavailable Silvio Schulte MD Unavailable [phone] Bri Rollins RN Unavailable Unavailable Werner Swift MD Unavailable Liz Capellan DO Primary Care Provider [phone] Reason for Visit * Reason Comments Medication Refill Encounter Details Date Type Department Care Team (Late st Contact Info) Description 09/29/2022 Refill [facility] #2 [place] [address] Keith Craft MD [address]1 [place] [address] Medication Refill Social History Tobacco Use Types [...] Encounter - Gloria Cornejo RN - 10/01/2022 9:11 AM CDT Medication failed the protocol, provider to review and approve the medication order if appropriate. Requested Prescriptions Pending Prescriptions Disp Refills albuterol (PROVENTIL, VENTOLIN) (2.5 MG/3ML) 0.083% Nebulizer Soln [Pharmacy Med Name: ALBUTEROL SULFATE 0.083% NEBULIZED SOLN] 720 mL 1 Sig: USE ONE (1) VIAL THREE (3) ML BY NEBULIZATION ROUTE FOUR (4) TIMES DAILY NEEDED FOR WHEEZING OR SHORTNESS OF BREATH. DX: J44.9, J18.9 Short Acting Inhaled Beta-Agonists Protocol Passed - 09/29/2022 9:35 AM Passed - Visit with relevant provider in past 12 months or upcoming 90 days Recent Visits Date Type Provider Dept 09/10/22 Office Visit [facility] 07/18/22 Office Visit Kerri Kauffman, CCO, POSITION CLASSIFIER [facility] [place] 06/07/22 Office Visit Keith [facility] [place] 03/02/22 Procedure [facility] Office Visit Keith Craft MD [facility] [...] Agonists (Oral and Nasal) Protocol Failed - 09/29/2022 9:35 AM Failed - This refill cannot be delegated; check utilization no more than 9 doses per month Passed - Visit with relevant provider in past 24 months or upcoming 90 days Recent Visits Date Type Provider Dept 09/10/22 Office Visit Keith Craft MD [facility] 07/18/22 Office Visit Kerri Kauffman, CCO, POSITION CLASSIFIER [facility] [place] 06/07/22 Office Visit Keith Craft MD [facility] 03/02/22 Procedure Visit [facility] DIABETIC RETINAL IMAGING [facility] 03/02/22 Office Visit Keith Craft MD [facility] 11/03/21 Office Visit Keith Craft MD [facility] 10/19/21 Office Visit Keith Craft MD [facility] 10/05/21 Office Visit Keith Craft MD [facility] 09/08/21 Office Visit Brie Denis, NICOLE [facility] [place] 08/14/21 Office Visit Keith Craft MD [facility] Showing recent visits within past 730 days [...] st Contact Info) Description 07/13/2024 1:30 PM ELIGIBILITY COUNSELOR Office Visit [facility] - Family Medicine - [place] #2 [place] [address] Liz Capellan L, DO 2 [facility] [address] [place] [address] 07/20/2024 2:15 PM ELIGIBILITY COUNSELOR Office Visit [facility] - Endocrinology - [place] #2 [place] [address] Ana Vivar, CCO, POSITION CLASSIFIER 2 [facility] [address] [place] [address] Yasmin Restrepo MD #[address] [phone] 07/31/2024 1:00 PM ELIGIBILITY COUNSELOR [facility] [address] [place] [address] Werner Swift MD #2 [place] [address] Discharge Disposition: Discharged to home or Selfcare 08/03/2024 1:15 PM CDT Office Visit [facility] [place] [facility] - Pulmonology & Sleep Medicine - [place] #2 [place] [address] Werner Swift MD #2 [place] [address] 09/02/2024 2:00 PM CDT Appointment [facility] Res[facility] Therapy 1 [facility] [place] [address] Werner Swift MD #[address] [place] [address] Discharge Disposition: Discharged to home or Selfcare 10/09/2024 2:30 PM CDT Office Visit [facility] - Family Medicine [facility] #2 [place] [address] Liz Capellan, DO [address] [address] documented as of this encounter Goals Goal [...] Zones/Action plan education. I will notify my Lumber Stacker Operator if my symptoms fall in the [...] 19 04/18/2023 04/18/2023 04/28/2023 12:1 6 AM ELIGIBILITY COUNSELOR COVID - 19 07/13/2023 07/13/2023 07/23/2023 12:1 6 AM ELIGIBILITY COUNSELOR Respiratory Rule Out - RPA 03/17/2024 03/17/2024 1 3:36 PM CDT COVID - 19 04/27/2024 04/27/2024 04/27/2024 2:19 PM ELIGIBILITY COUNSELOR Assessment Noted Time PHQ-9 Depression Total Score: 1 03/07/20 21 10:29 AM CDT documented as of this encounter Care Teams Residential Door Installer Relationship Specialty Start Date End Date Keith Craft MD PCP - General Family Medicine 01/14/19 12/26/23 Liz Capellan DO [address] [address] PCP - General Family Medicine 12/27/23 Quang Locke DO Gastroenterology 01/18/16 Bri Rollins RN [place] Lumber Stacker Operator 03/07/21 05/22/23 [place] [address] [address] 05/25/21 Bri Rollins RN [place] Nurse Lumber Stacker Operator 03/07/21 05/23/23 Werner Swift MD #[address] [place] [address] Consulting Physician Pulmonary Disease 01/30/22 documented as of this encounter
--- OUTSIDE RECORDS SUMMARY | 2024-07-10 13:42 | XMS_ITS | Encounter Summary ---
Author Organization [facility] Address [address] [place] [address] Phone Care Team Providers Care Field Map Technician Name Role Phone Quang Locke Unavailable [phone] Keith Craft MD Primary Care Provider [phone] Bri Rollins RN Unavailable Unavailable Silvio Schulte MD Unavailable [phone] Bri Rollins RN Unavailable Unavailable Werner Swift MD Unavailable Liz Capellan DO Primary Care Provider Reason for Visit * Reason Comments Medication Refill Encounter Details Date Type Department Care Team (Late st Contact Info) Description 04/25/2021 Refill [facility] #2 [place] [address] Keith Craft MD #1 [place] [address] Medication Refill Social History Tobacco Use Types [...] COVID-19? No / Unsure 04/18/2021 1:18 PM DINING SERVICES MANAGER documented as of this encounter Miscellaneous Notes * Telephone Encounter - Gloria Cornejo RN - 04/25/2021 8:26 AM CST Medication failed the protocol, provider to review and approve the medication order if appropriate. Requested Prescriptions Pending Prescriptions Disp Refills theophylline CR, 12 hour, (THEODUR) 300 MG TABLET SR 12 HR [Pharmacy Med Name: THEOPHYLLINE ER 300 MG TAB] 180 Tablet 1 Sig: TAKE 1 TABLET BY MOUTH EVERY 12 HOURS [facility] Pulmonology: Theophyllines Failed - 04/25/2021 12:01 AM Failed - Theophylline (serum) in normal range and within 360 days THEOPHYLLINE Date Value Ref Range Status 07/27/2019 14 10 - 20 mcg/mL Final Passed - Valid encounter within last 12 months Past Office Visits Recent Outpatient Visits 1 week ago Mixed hyperlipidemia [facility] - Keith Jenkins MD 1 month ago Acute bronchitis, unspecified organism [facility] Keith Lemus MD 2 months ago Pneumonia of right lower lobe due to infectious organism [facility] Keith Lemus MD 2 months ago Type 2 diabetes mellitus with diabetic neuropathy, with long-term current use of insulin (HCC) [facility] Brie Vieira PAC 3 months ago Chronic low back pain, unspecified back pain laterality, unspecified whether sciatica present [facility] [place] Craft, Keith M, MD Upcoming Appointments Future Appointments In 3 months Keith Craft MD [facility] - [place], [facility] LIAISON - Recent and Past Visits Recent Visits Date Type Provider Dept 04/14/21 Office Visit Keith Craft, MD [facility] 03/23/21 Office Visit Keith Craft, [facility] 02/07/21 Office Visit Keith Craft MD [facility] 02/03/21 Office Visit Brie Denis, [facility] [place] 01/12/21 Office Visit Keith Craft, [facility] 10/12/20 Office Visit Keith Craft, [facility] 10/04/20 Office Visit Keith Craft MD [facility] 06/07/20 Office Visit Keith Craft MD [facility] 04/25/20 Office Visit Keith Craft, MD [facility] 02/02/20 [facility] Showing recent visits within past 460 days with a meds authorizing provider and meeting all other requirements Future Appointments No visits were found meeting these conditions. Showing future appointments within next 90 days with a meds authorizing provider and meeting all other requirements Passed - Last BP in normal range BP Readings from Last 1 Encounters: 04/14/21 110/64 NG SERVICES MANAGER documented in this encounter Plan of Treatment Upcoming Encounters Date Type Department Care Team (Late st Contact Info) Description 07/13/2024 1:30 PM DINING SERVICES MANAGER Office Visit [facility] Family Medicine - [place] #2 [place] [address] Liz Capellan, DO 2 [facility] [address] [address] 07/20/2024 2:15 PM DINING SERVICES MANAGER Office Visit [facility] Endocrinology - [place] #2 [facility] [place] [address] Ana Vivar, POWER BALLAST MACHINE OPERATOR, CAR INSTALLATIONS SUPERVISOR 2 [facility] [address] [place] [address] Yasmin Restrepo MD #[address] [address] 07/31/2024 1:00 PM DINING SERVICES MANAGER [facility] [address] [place] [address] Werner Swift MD #2 [place] [address] Discharge Disposition: Discharged to home or Selfcare 08/03/2024 1:15 PM CDT Office Visit [facility] Medical [facility] - Pulmonology & Sleep Medicine [facility] #2 [place] [address] Werner Swift MD #2 [place] [address] 09/02/2024 2:00 PM CDT [facility] 1 [place] [address] Werner Swift MD #2 [place] [address] Discharge Disposition: Discharged to home or Selfcare 10/09/2024 2:30 PM CDT Office Visit [facility] Medical [facility] - Family Medicine [facility] #2 [place] [address] Liz Capellan, DO 2 [facility] [address] [facility] [address] [place] [address] documented as of this encounter Goals Goal [...] plan education. I will notify my Manager Provider Relations if my symptoms fall in the y [...] - 19 07/23/2021 07/23/2021 07/24/2021 6:31 AM DINING SERVICES MANAGER COVID - 19 10/19/2021 10/19/2021 10/20/2021 7:45 AM CDT Respiratory Rule Out - RPA 10/19/2021 10/19/2021 0 10/20/2021 2:10 PM CDT Stenotrophomonas maltophilia Comment:Must have a follow up respiratory sample to remove isolation flag. 10/20/2021 10/20/2021 COVID - 19 04/20/2022 04/20/2022 04/30/2022 12:1 8 AM DINING SERVICES MANAGER COVID - 19 07/18/2022 07/18/2022 07/28/2022 12:1 6 AM DINING SERVICES MANAGER COVID - 19 08/21/2022 08/21/2022 08/22/2022 8:31 AM CDT Respiratory Rule Out - RPA 08/21/2022 08/21/2022 0 08/22/2022 3:21 PM CDT COVID - 19 04/18/2023 04/18/2023 04/28/2023 12:1 6 AM DINING SERVICES MANAGER COVID - 19 07/13/2023 07/13/2023 07/23/2023 12:1 6 AM DINING SERVICES MANAGER Respiratory Rule Out - RPA 03/17/2024 03/17/2024 1 3:36 PM CDT COVID - 19 04/27/2024 04/27/2024 04/27/2024 2:19 PM DINING SERVICES MANAGER Assessment Noted Time PHQ-9 Depression Total Score: 1 03/07/20 21 10:29 AM CDT documented as of this encounter Care Teams Field Map Technician Relationship Specialty Start Date End Date Keith Craft MD PCP - General Family Medicine 01/14/19 12/26/23 Liz Capellan DO [address] [address] PCP - General Family Medicine 12/27/23 Quang Locke DO Gastroenterology 01/18/16 Bri Rollins RN [place] Manager Provider Relations 03/07/21 05/22/23 [place] [address] [address] 05/25/21 Bri Rollins RN [place] Nurse Manager Provider Relations 03/07/21 05/23/23 Werner Swift MD #2 [place] [address] Consulting Physician Pulmonary Disease 01/30/22 documented as of this encounter
--- OUTSIDE RECORDS SUMMARY | 2024-07-10 13:42 | XMS_ITS | Encounter Summary ---
Author Organization [facility] Address [address] [place] [address] Phone Care Team Providers Care Associate Editor Name Role Phone Quang Locke Unavailable [phone] Keith Craft MD Primary Care Provider [phone] Silvio Schulte MD Unavailable [phone] Werner Swift MD Unavailable Liz Capellan DO Primary Care Provider [phone] Reason for Visit * Reason Onset Date Comments Medication Refill Follow-up 11/08/2023 Encounter Details Date Type Department Care Team (Late st Contact Info) Description 11/08/2023 Telephone [facility] - Family Medicine [facility] #2 [place] [address] Keith Craft MD #1 [place] [address] Medication Refill; Follow-up Social History Tobacco Use Types Packs/Day Years Used Date Smoking Tobacco: Former Cigarettes 2 50 1 - 03/16/2018 Smokeless Tobacco: Never Comments:Still uses nictoine patches and gum Alcohol Use Standard Drinks/Week Comments No 0 (1 standard drink = 0.6 oz pur e alcohol) [facility] Utilities Answer Date Recorded In the [...] often do you attend chur ch or pentecostal services? Never 07/13/2023 Do you belong to any clubs o r organizations such as pentecostal groups, unions, fraternal or athletic groups, or [...] Total Score - Questions 1-9 4 10/25 [facility] of Occupat ional Health - Occupational [...] Encounter - Gloria Cornejo RN - 11/11/2023 11:29 AM CDT Waiting on Dr Craft as this is being addressed in another encounter as sent to PCP on 11/08/23. * Telephone Encounter - Radha Daley RN - 11/11/2023 9:22 AM CDT Situation: Patient calling regarding prescription for diazepam 5 mg Background: CURLY: 11/08/23 Assessment: Patient states she spoke to [facility] today 11/11/23 and they have not received a script for her diazepam 5 mg Recommendations: Please advise * Telephone Encounter - Gloria Cornejo RN - 11/08/2023 1:07 PM CDT duplicate documented in this encounter Plan of Treatment Upcoming Encounters Date Type Department Care Team (Late st Contact Info) Description 07/13/2024 1:30 PM ADMINISTRATIVE RESOURCES ASSOCIATE Office Visit [facility] Medical Group - Family Medicine [facility] [address]2 [place] [address] Liz Capellan, DO [address] [address] 07/20/2024 2:15 PM ADMINISTRATIVE RESOURCES ASSOCIATE Office Visit [facility] - Endocrinology - [place] [address]2 [place] [address] Ana Vivar, SENIOR ENGINEER, CUTLET MAKER PORK [address] [address] Yasmin Restrepo MD #[address] [address] 07/31/2024 1:00 PM ADMINISTRATIVE RESOURCES ASSOCIATE [facility] 1 [facility] [place] [address] Werner Swift MD #2 [place] [address] Discharge Disposition: Discharged to home or Selfcare 08/03/2024 1:15 PM CDT Office Visit [facility] - Pulmonology & Sleep Medicine [facility] [address]2 [place] [address] Werner Swift MD #2 [place] [address] 09/02/2024 2:00 PM CDT [facility] 1 [facility] [place] [address] Werner Swift MD #2 [place] [address] Discharge Disposition: Discharged to home or Selfcare 10/09/2024 2:30 PM CDT Office Visit [facility] Medical [facility] - Family Medicine [facility] #2 [place] [address] Liz Capellan, DO [address] [address] documented as of this encounter Goals Goal [...] Zones/Action plan education. I will notify my Steel Handler if my symptoms fall in the y [...] - 19 04/27/2024 04/27/2024 04/27/2024 2:19 PM ADMINISTRATIVE RESOURCES ASSOCIATE Assessment Noted Time PHQ-9 Depression Total Score: 4 11/08/19 24 9:33 AM CDT documented as of this encounter Care Teams Associate Editor Relationship Specialty Start Date End Date Keith Craft MD PCP - General Family Medicine 01/14/19 12/26/23 Liz Capellan DO 2 [place] [address] PCP - General Family Medicine 12/27/23 Quang Locke DO Gastroenterology 01/18/16 [place] [id number] [address] 05/25/21 Werner Swift MD #2 [place] [address] Consulting Physician Pulmonary Disease 01/30/22 documented as of this encounter
--- OUTSIDE RECORDS SUMMARY | 2024-07-10 13:42 | XMS_ITS | Encounter Summary ---
Author Organization [facility] Address [address] [place] [address] Phone Care Team Providers Care Wrist Liner Name Role Phone Quang Locke Unavailable [phone] Keith Craft MD Primary Care Provider [phone] Bri Rollins RN Unavailable Unavailable Silvio Schulte MD Unavailable Bri Rollins RN Unavailable Unavailable Werner Swift MD Unavailable Liz Capellan DO Primary Care Provider [phone] Reason for Visit * Reason Comments Medication Refill Encounter Details Date Type Department Care Team (Late st Contact Info) Description 12/24/2022 Refill [facility] Medicine [facility] #2 [place] [address] Keith Craft MD #1 [place] [address] Medication Refill Social History Tobacco Use Types [...] Telephone Encounter - Gloria Cornejo RN - 12/24/2022 4:16 PM CDT Name from pharmacy: VITAMIN D [id number] CAPSULE Will file in chart as: ergocalciferol (VITAMIN D) 69588 UNIT Capsule The original prescription was discontinued on 11/01/2022 by Keith Craft MD documented in this encounter Plan of Treatment Upcoming Encounters Date Type Department Care Team (Late st Contact Info) Description 07/13/2024 1:30 PM COMPUTER INSTALLER Office Visit [facility] Medical Group - Family Medicine - [place] [address]2 [place] [address] Liz Capellan, DO [address] [address] 07/20/2024 2:15 PM COMPUTER INSTALLER Office Visit [facility] Medical Group - Endocrinology - [place] [address]2 [place] [address] Oehl, Ana N, STOCK CHECKERER, FLOUR MIXER 2 [facility] GUI [facility] [address] [place] [address] Yasmin Restrepo MD [address] [place] [address] 07/31/2024 1:00 PM COMPUTER INSTALLER [facility] [address] [place] [address] Werner Swift MD #2 [place] [address] Discharge Disposition: Discharged to home or Selfcare 08/03/2024 1:15 PM CDT [facility] - Pulmonology & Sleep Medicine [facility] #2 [place] [address] Werner Swift MD #2 [place] [address] 09/02/2024 2:00 PM CDT [facility] 1 [facility] [place] [address] Werner Swift MD #2 [place] [address] Discharge Disposition: Discharged to home or Selfcare 10/09/2024 2:30 PM CDT Office Visit [facility] Family Medicine [facility] #2 [place] [address] Liz Capellan, DO 2 [facility] [place] [facility] [address] [place] [address] documented as of this encounter Goals Goal [...] Zones/Action plan education. I will notify my History Faculty Member if my symptoms fall in the y [...] 19 04/18/2023 04/18/2023 04/28/2023 12:1 6 AM COMPUTER INSTALLER COVID - 19 07/13/2023 07/13/2023 07/23/2023 12:1 6 AM COMPUTER INSTALLER Respiratory Rule Out - RPA 03/17/2024 03/17/2024 1 3:36 PM CDT COVID - 19 04/27/2024 04/27/2024 04/27/2024 2:19 PM COMPUTER INSTALLER Assessment Noted Time PHQ-9 Depression Total Score: 1 03/07/20 21 10:29 AM CDT documented as of this encounter Care Teams Wrist Liner Relationship Specialty Start Date End Date Keith Craft MD PCP - General Family Medicine 01/14/19 12/26/23 Liz Capellan DO [address] [address] PCP - General Family Medicine 12/27/23 Quang Locke DO Gastroenterology 01/18/16 Bri Rollins, RN [place] History Faculty Member 03/07/21 05/22/23 [place] [address] [address] 05/25/21 Bri Rollins, RN [place] Nurse History Faculty Member 03/07/21 05/23/23 Werner Swift MD #2 [place] [address] Consulting Physician Pulmonary Disease 01/30/22 documented as of this encounter
--- OUTSIDE RECORDS SUMMARY | 2024-07-10 13:42 | XMS_ITS | Encounter Summary ---
Author Organization [facility] Address [address] [place] [address] Phone Care Team Providers Care French Cord Binder Name Role Phone Quang Locke DO Unavailable [phone] Keith Craft MD Primary Care Provider [phone] Silvio Schulte MD Unavailable [phone] Werner Swift MD Unavailable Liz Capellan DO Primary Care Provider [phone] Reason for Visit * Reason Comments Medication Refill Encounter Details Date Type Department Care Team (Late st Contact Info) Description 09/23/2023 Refill [facility] Family Medicine [facility] #2 [place] [address] Keith Craft MD #1 [place] [address] Medication Refill Social History Tobacco Use Types Packs/Day Years Used Date Smoking Tobacco: Former Cigarettes 2 50 1 - 03/16/2018 Smokeless Tobacco: Never Comments:Still uses nictoine patches and gum Alcohol Use Standard Drinks/Week Comments No 0 (1 standard drink = 0.6 oz pur e alcohol) [facility] Utilities Answer Date Recorded In [...] often do you attend chur ch or taoism services? Never 07/13/2023 Do you belong to [...] Score - Questions 1-9 0 /0 08/2021 [facility] [place] of Occupat ional Health - Occupational Stress [...] Telephone Encounter - Gloria Cornejo RN - 09/23/2023 4:44 PM CDT Medication warning Per nursing clinical judgement, provider to review and approve the medication(s) order(s) if appropriate. Requested Prescriptions Pending Prescriptions Disp Refills Trelegy Ellipta 100-62.5-25 MCG/ACT AEROSOL POWDER, BREATH ACTIVATED [Pharmacy Med Name: TRELEGY ELLIPTA 100MCG AERO POW BR ACT] 60 Each 2 Sig: TAKE ONE (1) PUFF BY INHALATION DAILY. Inhaled Combinations Protocol Passed - 09/23/2023 10:45 AM Passed - Visit with relevant provider [...] requirements Future Appointments Date Type Provider Dept 12/20/23 Appointment Keith Craft MD [facility] Showing future appointments within next 90 days and meeting all other requirements Passed - Active short-acting beta agonist prescription Xigduo XR 5-1000 MG TABLET SR 24 HR [Pharmacy Med Name: XIGDUO XR 5-1000MG TABLET ER 24HR] 180 Tablet 1 Sig: TAKE ONE (1) TABLET BY MOUTH TWO (2) TIMES DAILY. SGLT2 Inhibitors-Biguanides Protocol Passed - 09/23/2023 10:45 AM Passed - Visit with relevant provider in past 6 months or upcoming 90 days Recent Visits Date Type Provider Dept 08/15/23 Office Visit Keith Craft MD [facility] 05/02/23 Office Visit Keith Craft MD [facility] 04/12/23 Office Visit Keith Craft MD [facility] Showing recent visits within past 182 days and meeting all other requirements Future Appointments Date Type Provider Dept 12/20/23 Appointment Keith Craft MD [facility] Showing future appointments within next 90 days and meeting all other requirements Passed - HgA1C on record in past 6 months HGB-A1C Date Value Ref Range Status 04/12/2023 6.4 (A) 4 - 6 % Final HGB-A1C Date Value Ref Range Status 07/13/2023 6.0 4.0 - 6.0 % Final Passed - GFR greater than or equal to 30 in past 6 months GFR, EST. NONAFRICAN Date Value Ref Range Status 07/27/2023 56 (L) >=60 Final documented in this encounter Plan of Treatment Upcoming Encounters Date Type Department Care Team (Late st Contact Info) Description 07/13/2024 1:30 PM SVP INNOVATION PARTNERSHIPS Office Visit [facility] - Family Medicine - [place] #2 [facility] [place] [address] Liz Capellan L, DO 2 [facility] [address] [place] [address] 07/20/2024 2:15 PM SVP [employer]OVATION [employer]NERSHIPS [facility] [place] [address]2 [place] [address] Ana Vivar N, TECHNICAL EDITOR, AQUACULTURIST 2 [facility] [address] [place] [address] Yasmin Restrepo MD #[address] [place] [address] 07/31/2024 1:00 PM SVP INNOVATION PARTNERSHIPS [facility] [address] [place] [address] Werner Swift MD #2 [place] [address] Discharge Disposition: Discharged to home or Selfcare 08/03/2024 1:15 PM CDT Office Visit [facility] - Pulmonology & Sleep Medicine - [place] #2 [place] [address] Werner Swift MD #2 [place] [address] 09/02/2024 2:00 PM CDT [facility] 1 [place] [address] Werner Swift MD #2 [place] [address] Discharge Disposition: Discharged to home or Selfcare 10/09/2024 2:30 PM CDT Office Visit [facility] Medical Group - Family [facility] #2 [place] [address] Liz Capellan, DO 2 [place] [place] [address] [place] [address] documented as of this encounter Goals Goal [...] Zones/Action plan education. I will notify my Pheresis Specialist if my symptoms fall in the [...] - 19 04/27/2024 04/27/2024 04/27/2024 2:19 PM SVP [employer]ATION PARTNERSHIPS Assessment Noted Time PHQ-9 Depression Total Score: 1 03/07/20 21 10:29 AM CDT documented as of this encounter Care Teams French Cord Binder Relationship Specialty Start Date End Date Keith Craft MD PCP - General Family Medicine 01/14/19 12/26/23 Liz Capellan DO [address] [address] PCP - General Family Medicine 12/27/23 Quang Locke DO Gastroenterology 01/18/16 [place] [address] [address] 05/25/21 Werner Swift MD #2 [place] [address] Consulting Physician Pulmonary Disease 01/30/22 documented as of this encounter
--- OUTSIDE RECORDS SUMMARY | 2024-07-10 13:42 | XMS_ITS | Encounter Summary ---
Author Organization [facility] Address [address] [place] [address] Phone Care Team Providers Care Baker Head Name Role Phone Quang Locke DO Unavailable [phone] Keith Craft MD Primary Care Provider Silvio Schulte MD Unavailable [phone] Werner Swift MD Unavailable Liz Capellan DO Primary Care Provider [phone] Reason for Visit * Reason Comments Medication Refill Encounter Details Date Type Department Care Team (Late st Contact Info) Description 12/26/2023 Refill [facility] - [facility] #2 [place] [address] Keith Craft MD #1 [place] [address] Medication Refill Social History Tobacco Use Types Packs/Day Years Used Date Smoking Tobacco: Former Cigarettes 2 50 1 - 03/16/2018 Smokeless Tobacco: Never Comments:Still uses nictoine patches and gum Alcohol Use Standard Drinks/Week Comments No 0 (1 standard drink = 0.6 oz pur e alcohol) [facility] Utilities Answer Date Recorded In the past 12 months has th e electric, gas, oil, or water company threatened to shut off services in your home? No 12/27/2023 Social Connection and Isolat ion Panel [NHANES] Answer Date Recorded In a typical week, how many times do you talk on the phone with family, friends, or neighbors? More than three times a week 12/27/2023 How often do you get togethe r with friends or relatives? More than three times a week 12/27/2023 How often do you attend chur ch or tenriism services? Never 12/27/2023 Do you belong to any clubs o r organizations such as voodoo groups, unions, fraternal or athletic groups, or school groups? No 12/27/2023 How often do you attend meet ings of the clubs or organizations you belong to? Patient declined 12/27/2023 Are you , , di vorced, , never , or living with a partner? 12/27/2023 AUDIT-C Answer Date Recorded Q1: How often do you have a drink containing alcohol? Never 12/27/2023 Q2: How many drinks containi ng alcohol do you have on a typical day when you are drinking? Patient does not drink Q3: How often do you have si x or more drinks on one occasion? Never 12/27/2023 Overall Financial Resource Strain (CARDIA) Answe r Date Recorded How hard is it for you to pa y for the very basics like food, housing, medical care, and heating? Not hard at all 12/27/2023 PHQ-2 Answer Date Recorded Total Score - Questions 1-9 4 10/25 [facility] of Occupat ional Health - Occupational Stress Questionnaire Answer Date Recorded Do you feel stress - tense, restless, nervous, or anxious, or unable to sleep at night because your mind is troubled all the time - these days? To some extent 12/27/2023 Exercise Vital Sign Answer Date Recorde d On average, how many days pe r week do you engage in moderate to strenuous exercise (like a brisk walk)? 5 days 12/27/2023 On average, how many minutes do you engage in exercise at this level? 20 min 12/27/2023 Hunger Vital Sign Answer Date Recorded Within the past 12 months, y ou worried that your food would run out before you got the money to buy more. Never true 12/27/19 24 Within the past 12 months, t he food you bought just didn't last and you didn't have money to get more. Never true 12/27/2023 PRAPARE - Transportation Answer Date Re corded In the past 12 months, has l ack of transportation kept you from medical appointments or from getting medications? No 06/2023 In the past 12 months, has l ack of transportation kept you from meetings, work, or from getting things needed for daily living? No 12/27/2023 Housing Stability Vital Sign Answer Richar e [...] the mortgage or rent on time? No 12/27/2023 In the past 12 months, how m any times have you moved where you were living? 0 12/27/2023 At any time in the past 12 m [facility], were you homeless or living in a longterm (including now)? No 12/27/2023 Education Answer Date Recorded What is the [...] Score Answer Date of Assessment Author 0 12/27/2023 1:03 PM CDT [facility] * Within the last year, have you been humiliated or emotionally abused in other ways by your partner or ex-partner? Answer Date of Assessment Author No 12/27/2023 1:03 PM CDT [facility] * Within the last year, have you been afraid of your partner or ex-partner? Answer Date of Assessment Author No 12/27/2023 1:03 PM CDT [facility] * Within the last year, have you been raped or forced to have any kind of sexual activity by your partner or ex-partner? Answer Date of Assessment Author No 12/27/2023 1:03 PM CDT [facility] * Within the last year, have you been kicked, hit, slapped, or otherwise physically hurt by your partner or ex-partner? Answer Date of Assessment Author No 12/27/2023 1:03 PM CDT [facility] * Q1: How often do you have a drink containing alcohol? Answer Date of Assessment Author Never 12/27/2023 1:03 PM CDT [facility] * Q2: How many drinks containing alcohol do you have on a typical day when you are drinking? Answer Date of Assessment Author Patient does not drink 12/27/2023 1:03 PM CDT [facility] * Q3: How often do you have six or more drinks on one occasion? Answer Date of Assessment Author Never 12/27/2023 1:03 PM CDT [facility] documented as of this encounter Plan of Treatment Upcoming Encounters Date Type Department Care Team (Late st Contact Info) Description 07/13/2024 1:30 PM MEDICAL DOCTOR NUCLEAR MEDICINE Office Visit [facility] Medical [facility] - Family Medicine - [place] [address] [place] [address] Liz Capellan, DO 2 [facility] [place] [facility] [address] [address] 07/20/2024 2:15 PM MEDICAL DOCTOR NUCLEAR MEDICINE Office Visit [facility] - Endocrinology - [place] #2 [place] [address] Ana Vivar N, WINDOW UNIT AIR CONDITIONING MECHANIC, DAMAGE ASSESSOR 2 [facility] GUI [facility] [address] [place] [address] Yasmin Restrepo MD [address] [address] 07/31/2024 1:00 PM MEDICAL DOCTOR NUCLEAR MEDICINE [facility] [address] [place] [address] Werner Swift MD #2 [place] [address] Discharge Disposition: Discharged to home or Selfcare 08/03/2024 1:15 PM CDT [facility] - Pulmonology & [facility] #2 [place] [address] Werner Swift MD #2 [place] [address] 09/02/2024 2:00 PM CDT [facility] 1 [place] [address] Werner Swift MD #2 [place] [address] Discharge Disposition: Discharged to home or Selfcare 10/09/2024 2:30 PM CDT Office [facility] #2 [place] [address] Liz Capellan, DO 2 [facility] [place] [facility] [address] [place] [address] documented as of this encounter Goals Goal [...] Zones/Action plan education. I will notify my Ripsaw Operator if my symptoms fall in the [...] - 19 04/27/2024 04/27/2024 04/27/2024 2:19 PM MEDICAL DOCTOR NUCLEAR MEDICINE Assessment Noted Time PHQ-9 Depression Total Score: 4 11/08/19 24 9:33 AM CDT documented as of this encounter Care Teams Baker Head Relationship Specialty Start Date End Date Keith Craft MD PCP - General Family Medicine 01/14/19 12/26/23 Liz Capellan DO [address] [id number] PCP - General Family Medicine 12/27/23 Quang Locke DO Gastroenterology 01/18/16 [place] [address] [address] 05/25/21 Werner Swift MD #2 [place] [address] Consulting Physician Pulmonary Disease 01/30/22 documented as of this encounter
--- OUTSIDE RECORDS SUMMARY | 2024-07-10 13:43 | XMS_ITS | Encounter Summary ---
Author Organization [facility] Address [address] [place] [address] Phone Care Team Providers Care Application Release Manager Name Role Phone Quang Locke Unavailable [phone] Keith Craft MD Primary Care Provider [phone] Bri Rollins RN Unavailable Unavailable Silvio Schulte MD Unavailable [phone] Bri Rollins RN Unavailable Unavailable Werner Swift MD Unavailable Liz Capellan DO Primary Care Provider [phone] Reason for Visit * Reason Comments Medication Refill Encounter Details Date Type Department Care Team (Late st Contact Info) Description 07/24/2021 [facility]ill [facility] #2 [place] [address] Keith Craft MD #1 [place] [address] Medication Refill Social History Tobacco Use Types [...] have Coronavirus / COVID-19? No / Unsure 07/23/2021 10:30 AM BAG CUTTER documented as of this encounter Miscellaneous Notes * Telephone Encounter - Gloria Cornejo RN - 07/25/2021 1:51 PM CST Medication failed the protocol, provider to review and approve the medication order if appropriate. Requested Prescriptions Pending Prescriptions Disp Refills ergocalciferol (VITAMIN D) 69504 UNIT Capsule [Pharmacy Med Name: VITAMIN D [id number] CAPSULE] 12 Capsule 0 Sig: TAKE ONE CAPSULE BY MOUTH ONE TIME WEEKLY Vitamin Supplements (Adult) Protocol Failed - 07/24/2021 1:17 PM Failed - Vitamin D less than 1.25mg Passed - Visit with relevant provider in past 12 months or upcoming 90 days Recent Visits Date Type Provider Dept 05/25/21 Office Visit Marcin Anderson, IRRIGATION MANAGER, LINK FABRIC MACHINE OPERATOR [facility] Office Visit Brie Denis, [facility] 04/14/21 Office Visit Keith Craft MD [facility] 03/23/21 Office Visit Keith Craft MD [facility] 02/07/21 Office Visit Keith Craft MD [facility] 02/03/21 Office Visit Brie Denis, [facility] 01/12/21 Office Visit Keith Craft MD [facility] 10/12/20 Office Visit Keith Craft MD [facility] 10/04/20 Office Visit Keith Craft MD [facility] [place] Showing recent visits within past 365 days and meeting all other requirements Future Appointments Date Type Provider Dept 08/14/21 Appointment Keith Craft MD [facility] Showing future appointments within next 90 days and meeting all other requirements CUTTER documented in this encounter Plan of Treatment Upcoming Encounters Date Type Department Care Team (Late st Contact Info) Description 07/13/2024 1:30 PM BAG CUTTER Office Visit [facility] - Family Medicine - [place] [address]2 [place] [address] Liz Capellan, DO [address] [address] 07/20/2024 2:15 PM BAG CUTTER [facility] [place] [facility]2 [place] [address] Ana Vivar, IRRIGATION MANAGER, LINK FABRIC MACHINE OPERATOR [address] [address] Yasmin Restrepo MD #[address] [address] 07/31/2024 1:00 PM BAG CUTTER [facility]ment [facility] [address] [place] [address] Werner Swift MD #2 [place] [address] Discharge Disposition: Discharged to home or Selfcare 08/03/2024 1:15 PM CDT [facility] [place] #2 [place] [address] Werner Swift MD #2 [place] [address] 09/02/2024 2:00 PM CDT [facility]ointment [facility] Res[facility] 1 [place] [address] Werner Swift MD #2 [place] [address] Discharge Disposition: Discharged to home or Selfcare 10/09/2024 2:30 PM CDT [facility] #2 [place] [address] Liz Capellan, DO [address] [address] documented as of this encounter Goals Goal [...] Zones/Action plan education. I will notify my Negative Turner if my symptoms fall in the y [...] - 19 07/23/2021 07/23/2021 07/24/2021 6:31 AM BAG CUTTER COVID - 19 10/19/2021 10/19/2021 10/20/2021 7:45 AM CDT Respiratory Rule Out - RPA 10/19/2021 10/19/2021 0 10/20/2021 2:10 PM CDT Stenotrophomonas maltophilia Comment:Must have a follow up respiratory sample to remove isolation flag. 10/20/2021 10/20/2021 COVID - 19 04/20/2022 04/20/2022 04/30/2022 12:1 8 AM BAG CUTTER COVID - 19 07/18/2022 07/18/2022 07/28/2022 12:1 6 AM BAG CUTTER COVID - 19 08/21/2022 08/21/2022 08/22/2022 8:31 AM CDT Respiratory Rule Out - RPA 08/21/2022 08/21/2022 0 08/22/2022 3:21 PM CDT COVID - 19 04/18/2023 04/18/2023 04/28/2023 12:1 6 AM BAG CUTTER COVID - 19 07/13/2023 07/13/2023 07/23/2023 12:1 6 AM BAG CUTTER Respiratory Rule Out - RPA 03/17/2024 03/17/2024 1 3:36 PM CDT COVID - 19 04/27/2024 04/27/2024 04/27/2024 2:19 PM BAG CUTTER Assessment Noted Time PHQ-9 Depression Total Score: 1 03/07/20 21 10:29 AM CDT documented as of this encounter Care Teams Application Release Manager Relationship Specialty Start Date End Date Keith Crfat MD PCP - General Family Medicine 01/14/19 12/26/23 Liz Capellan DO [address] [address] PCP - General Family Medicine 12/27/23 Quang Locke DO Gastroenterology 01/18/16 Bri Rollins, RN [place] Negative Turner 03/07/21 05/22/23 [place] [address] [address] 05/25/21 Bri Rollins, RN [place] Nurse [facility] 03/07/21 05/23/23 Werner Swift MD #2 [place] [address] Consulting Physician Pulmonary Disease 01/30/22 documented as of this encounter
--- OUTSIDE RECORDS SUMMARY | 2024-07-10 13:43 | XMS_ITS | Encounter Summary ---
Author Organization [facility] Address [address] [place] [address] Phone Care Team Providers Care Tank Refinisher Name Role Phone Quang Locke DO Unavailable [phone] Keith Craft MD Primary Care Provider [phone] Silvio Schulte MD Unavailable [phone] Werner Swift MD Unavailable Liz Capellan DO Primary Care Provider [phone] Reason for Visit * Reason Comments Medication Refill Encounter Details Date Type Department Care Team (Late st Contact Info) Description 09/09/2023 Refill [facility] #2 [place] [address] Keith Craft MD #1 [place] [address] Medication Refill Social History Tobacco Use Types Packs/Day Years Used Date Smoking Tobacco: Former Cigarettes 2 50 1 - 03/16/2018 Smokeless Tobacco: Never Comments:Still uses nictoine patches and gum Alcohol Use Standard Drinks/Week Comments No 0 (1 standard drink = 0.6 oz pur e alcohol) [facility] Utilities Answer Date Recorded In [...] often do you attend chur ch or orthodox services? Never 07/13/2023 Do you belong to any clubs o r organizations such as zoroastrian groups, unions, fraternal or athletic groups, or [...] Score - Questions 1-9 0 /0 08/2021 [facility] [place] of Occupat ional Health - Occupational Stress [...] Telephone Encounter - Gloria Cornejo RN - 09/09/2023 1:41 PM CDT Medication warning Per nursing clinical judgement, provider to review and approve the medication(s) order(s) if appropriate. Requested Prescriptions Pending Prescriptions Disp Refills dulaglutide (Trulicity) 0.75 MG/0.5ML Solution Pen-injector [Pharmacy Med Name: TRULICITY 0.75/0.5 SOLN PEN-INJ] 6 mL 5 Sig: INJECT 0.5 ML(0.75MG) WEEKLY ON SATURDAY DIRECTED BY PHYSICIAN GLP-1 Agonists Protocol Passed - 09/09/2023 9:16 AM Passed - Lipid panel result on [...] 12/17/2022 56.6 <130 mg/dL Final Passed - Visit with relevant provider in past 6 months or upcoming 90 days Recent Visits Date Type Provider Dept 08/15/23 Office Visit Keith Craft MD [facility] 05/02/23 Office Visit Keith Craft MD [facility] 04/12/23 Office Visit Keith Craft [facility] Show[facility] recent visits within past 182 days [...] st Contact Info) Description 07/13/2024 1:30 PM CUSTOMER LOYALTY REPRESENTATIVE [facility] Visit [facility] - [place] [address]2 [place] [address] Liz Capellan, DO 2 [facility] [address] [place] [address] 07/20/2024 2:15 PM CUSTOMER LOYALTY REPRESENTATIVE Office Visit [facility] - Endocrinology - [place] #2 [place] [address] Ana Vivar, ACCOUNT PROCESSOR, SPINDLE TESTER 2 [facility] [address] [place] [address] Yasmin Restrepo MD #[address] [address] 07/31/2024 1:00 PM CUSTOMER LOYALTY REPRESENTATIVE [facility] [address] [place] [address] Werner Swift MD #2 [place] [address] Discharge Disposition: Discharged to home or Selfcare 08/03/2024 1:15 PM CDT Office Visit [facility] - Pulmonology & Sleep Medicine [facility] #2 [place] [address] Werner Swift MD #2 [place] [address] 09/02/2024 2:00 PM CDT [facility]ment [facility] 1 [place] [address] Werner Swift MD #2 [place] [address] Discharge Disposition: Discharged to home or Selfcare 10/09/2024 2:30 PM CDT Office Visit [facility] - Family [facility] - [place] [address] [place] [address] Liz Capellan, DO [address] [facility] [place] [place] [address] documented as of this encounter Goals Goal [...] Zones/Action plan education. I will notify my Fundraising Consultant if my symptoms fall in the y ellow zone . I will consider receiving an influenza and pneumonia vaccination, if applicable. -I will call the office if I experience any symptoms listed above to discuss at home management options. documented as of this encounter Visit Diagnoses Diagnosis Type 2 diabetes mellitus with diabetic neuropathy, with long-term current use of insulin ([facility]) documented in this encounter Additional Health Concerns Infection Onset Date Last Indicated Resolved Time Stenotrophomonas maltophilia Comment:Must have a follow up respiratory sample to remove isolation flag. 10/20/2021 10/20/2021 Respiratory Rule Out - RPA 03/17/2024 03/17/2024 1 3:36 PM CDT COVID - 19 04/27/2024 04/27/2024 04/27/2024 2:19 PM CUSTOMER LOYALTY REPRESENTATIVE Assessment Noted Time PHQ-9 Depression Total Score: 1 03/07/20 21 10:29 AM CDT documented as of this encounter Care Teams Tank Refinisher Relationship Specialty Start Date End Date Keith Craft MD PCP - General Family Medicine 01/14/19 12/26/23 Liz Capellan DO [address] [id number] PCP - General Family Medicine 12/27/23 Quang Locke DO Gastroenterology 01/18/16 [place] [address] [address] 05/25/21 Werner Swift MD #2 [place] [address] Consulting Physician Pulmonary Disease 01/30/22 documented as of this encounter
--- OUTSIDE RECORDS SUMMARY | 2024-07-10 13:43 | XMS_ITS | Encounter Summary ---
Author Organization [facility] Address [address] [place] [address] Phone Care Team Providers Care Congressional Assistant Name Role Phone Quang Locke DO Unavailable [phone] Keith Craft MD Primary Care Provider [phone] Silvio Schulte MD Unavailable [phone] Werner Swift MD Unavailable Liz Capellan DO Primary Care Provider [phone] Reason for Visit * Reason Comments Medication Refill Encounter Details Date Type Department Care Team (Late st Contact Info) Description 10/28/2023 Refill [facility] #2 [place] [address] Werner Swift MD #2 [place] [address] Medication Refill Social History Tobacco Use Types Packs/Day Years Used Date Smoking Tobacco: Former Cigarettes 2 50 1 - 03/16/2018 Smokeless Tobacco: Never Comments:Still uses nictoine patches and gum Alcohol Use Standard Drinks/Week Comments No 0 (1 standard drink = 0.6 oz pur e alcohol) [facility] Utilities Answer Date Recorded In the past [...] Total Score - Questions 1-9 0 08/2021 [facility] [place] of Occupat ional Health - Occupational Stress [...] No 07/13/2023 Housing Stability Vital Sign Answer Richra e Recorded In the last 12 months, [...] place to sleep or slept in a skilled nursing (including now)? No 07/13/2023 Education Answer Date [...] encounter Miscellaneous Notes * Telephone Encounter - Emily Jesus RN - 10/28/2023 1:49 PM CDT Medication(s) refilled and signed per [facility] Chronic Medication Refill Standing Order for Pediatricand Adult Patients. Requested Prescriptions Pending Prescriptions Disp Refills albuterol 108 (90 Base) MCG/ACT Aerosol Solution [Pharmacy Med Name: ALBUTEROL SULFATE HFA HFA AEROSOL SOLN] 18 g 1 Sig: USE TWO (2) PUFF(S) BY INHALATION ROUTE EVERY FOUR (4) HOURS NEEDED WHEEZING Short Acting Inhaled Beta-Agonists Protocol Passed - 10/28/2023 1:13 PM Passed - Visit with relevant provider in past 12 months or upcoming 90 days Recent Visits Date Type Provider Dept 08/20/23 Office Visit Werner Swift MD [facility] 08/15/23 Office Visit Keith Craft MD [facility] 05/21/23 Office Visit Werner Swift MD [facility] [place] [facility] 05/02/23 Office Visit Keith Craft MD [facility] 04/12/23 Office Visit Keith Craft MD [facility] 01/29/23 Office Visit Werner Swift MD [facility] [place] [facility] 12/10/22 Office Visit Keith Craft MD [facility] Showing recent visits within past 365 days and meeting all other requirements Future Appointments Date Type Provider Dept 11/21/23 Appointment Werner Swift MD [facility] [place] [facility] 12/20/23 Appointment Keith Craft MD [facility] Showing future appointments within next 90 days and meeting all other requirements fluticasone (FLONASE) 50 MCG/ACT Suspension [Pharmacy Med Name: FLUTICASONE PROPIONATE 50MCG SUSPENSION] 16 g 5 Sig: TWO (2) SPRAYS BY NASAL ROUTE DAILY. Nasal Steroids Protocol Passed - 10/28/2023 1:13 PM Passed - Visit with relevant provider in past 12 months or upcoming 90 days Recent Visits Date Type Provider Dept 08/20/23 Office Visit Werner Swift MD [facility] [place] [facility] 08/15/23 Office Visit Keith Craft MD [facility] 05/21/23 Office Visit Werner Swift MD [facility] [place] [facility] 05/02/23 Office Visit Keith Craft MD [facility] 04/12/23 Office Visit Keith Craft MD [facility] 01/29/23 Office Visit Werner Swift MD [facility] Pulm & Sleep [place] [facility] 12/10/22 Office Visit Keith Craft MD [facility] [place] Showing recent visits within past 365 days and meeting all other requirements Future Appointments Date Type Provider Dept 11/21/23 Appointment Werner Swift MD [facility] Pulm & Sleep [place] [facility] 12/20/23 Appointment Keith Craft MD [facility] Showing future appointments within next 90 days and meeting all other requirements documented in this encounter Plan of Treatment Upcoming Encounters Date Type Department Care Team (Late st Contact Info) Description 07/13/2024 1:30 PM COAT BASTER Office Visit [facility] - Family Medicine [facility] #2 [place] [address] Liz Capellan, DO [address] [address] 07/20/2024 2:15 PM COAT BASTER Office Visit [facility] - Endocrinology - [place] #2 [place] [address] Ana Vivar, ANTIQUE REPAIRER, TECHNICAL DESIGNER [address] [address] Yasmin Restrepo MD #[address] [address] 07/31/2024 1:00 PM COAT BASTER [facility] [address] [place] [address] Werner Swift MD #2 [place] [address] Discharge Disposition: Discharged to home or Selfcare 08/03/2024 1:15 PM CDT Office Visit [facility] - Pulmonology & Sleep Medicine [facility] #2 [place] [address] Werner Swift MD #2 [place] [address] 09/02/2024 2:00 PM CDT Appointment [facility] Respiratory Therapy 1 [place] [address] Werner Swift MD #2 [place] [address] Discharge Disposition: Discharged to home or Selfcare 10/09/2024 2:30 PM CDT Office Visit [facility] Family Medicine [facility] #2 [place] [address] Liz Capellan, DO [address] [address] documented as of this encounter Goals Goal [...] Zones/Action plan education. I will notify my Frit Burner if my symptoms fall in the y [...] - 19 04/27/2024 04/27/2024 04/27/2024 2:19 PM COAT BASTER Assessment Noted Time PHQ-9 Depression Total Score: 1 03/07/20 21 10:29 AM CDT documented as of this encounter Care Teams Congressional Assistant Relationship Specialty Start Date End Date Keith Craft MD PCP - General Family Medicine 01/14/19 12/26/23 Liz Capellan DO [address] [address] PCP - General Family Medicine 12/27/23 Quang Locke DO Gastroenterology 01/18/16 [place] [address] [address] 05/25/21 Werner Swift MD #2 [place] [address] Consulting Physician Pulmonary Disease 01/30/22 documented as of this encounter
--- OUTSIDE RECORDS SUMMARY | 2024-07-10 13:43 | XMS_ITS | Encounter Summary ---
Author Organization [facility] Address [address] [place] [address] Phone Care Team Providers Care Welding Machine Operator/Tender Name Role Phone Quang Locke DO Unavailable [phone] Keith Craft MD Primary Care Provider [phone] Silvio Schulte MD Unavailable [phone] Werner Swift MD Unavailable Liz Capellan DO Primary Care Provider [phone] Reason for Visit * Reason Comments Medication Refill Encounter Details Date Type Department Care Team (Late st Contact Info) Description 09/04/2023 Refill [facility] #2 [place] [address] Keith Craft MD #1 [place] [address] Medication Refill Social History Tobacco Use Types [...] often do you attend chur ch or jewish services? Never 07/13/2023 Do you belong to any clubs o r organizations such as gnosticist groups, unions, fraternal or athletic groups, or [...] Score - Questions 1-9 0 /0 08/2021 [facility] [place] of Occupat ional Health - Occupational Stress [...] place to sleep or slept in a snf (including now)? No 07/13/2023 Education Answer Date [...] Telephone Encounter - Gloria Cornejo RN - 09/05/2023 8:25 AM CDT Images from the original note were not included. oxyCODONE-Acetaminophen Dispensed Days Supply Quantity Provider Pharmacy OXYCODONE-ACETAMINOPHEN 5-325 08/15/2023 30 120 Tablet Keith Craft MD [facility] Bet... documented in this encounter Plan of Treatment Upcoming Encounters Date Type Department Care Team (Late st Contact Info) Description 07/13/2024 1:30 PM ROLLER VARNISHER Office Visit [facility] - Family Medicine - [place] #2 [facility] [place] [address] Liz Capellan, DO 2 [facility] [address] [place] [address] 07/20/2024 2:15 PM ROLLER VARNISHER Office Visit [facility] - Endocrinology - [place] #2 [place] [address] Ana Vivar N, PUBLIC HEALTH TEACHER, BUSINESS ADVISOR 2 [facility] [address] [place] [address] Yasmin Restrepo MD #[address] [address] 07/31/2024 1:00 PM ROLLER VARNISHER [facility] [place] [address] Werner Swift MD #2 [place] [address] Discharge Disposition: Discharged to home or Selfcare 08/03/2024 1:15 PM CDT [facility] - Pulmonology & Sleep Medicine - [place] #2 [place] [address] Werner Swift MD #2 [place] [address] 09/02/2024 2:00 PM CDT [facility] 1 [place] [address] Werner Swift MD #[address] [place] [address] Discharge Disposition: Discharged to home or Selfcare 10/09/2024 2:30 PM CDT Office Visit [facility] Medical [facility] - Family [facility] #[address] [place] [address] Liz Capellan, DO [address] [facility] [place] [address] [place] [address] documented as of this encounter Goals Goal [...] Zones/Action plan education. I will notify my Web Production Manager if my symptoms fall in the [...] - 19 04/27/2024 04/27/2024 04/27/2024 2:19 PM ROLLER VARNISHER Assessment Noted Time PHQ-9 Depression Total Score: 1 03/07/20 21 10:29 AM CDT documented as of this encounter Care Teams Welding Machine Operator/Tender Relationship Specialty Start Date End Date Keith Craft MD PCP - General Family Medicine 01/14/19 12/26/23 Liz Capellan DO [address] [address] PCP - General Family Medicine 12/27/23 Quang Locke DO Gastroenterology 01/18/16 [place] [address] [address] 05/25/21 Werner Swift MD #2 [place] [address] Consulting Physician Pulmonary Disease 01/30/22 documented as of this encounter
--- OUTSIDE RECORDS SUMMARY | 2024-07-10 13:43 | XMS_ITS | Encounter Summary ---
Author Organization [facility] Address [address] [place] [address] Phone Care Team Providers Care Cephalometric Tracer Name Role Phone Quang Locke DO Unavailable [phone] Keith Craft MD Primary Care Provider [phone] Silvio Schulte MD Unavailable Werner Swift MD Unavailable Liz Capellan DO Primary Care Provider [phone] Reason for Visit * Reason Comments Medication Refill Encounter Details Date Type Department Care Team (Late st Contact Info) Description 09/04/2023 Refill [facility]2 [place] [address] Werner Swift MD #2 [place] [address] Medication Refill Social History Tobacco Use Types Packs/Day Years Used Date Smoking Tobacco: Former Cigarettes 2 50 1 - 03/16/2018 Smokeless Tobacco: Never Comments:Still uses nictoine patches and gum Alcohol Use Standard Drinks/Week Comments No 0 (1 standard drink = 0.6 oz pur e alcohol) [facility] Utilities Answer Date Recorded In [...] any clubs o r organizations such as alevism groups, unions, fraternal or athletic groups, or [...] Total Score - Questions 1-9 0 08/2021 [facility] of Occupat ional Health - Occupational Stress [...] Telephone Encounter - Emily Jesus RN - 09/04/2023 10:00 AM CDT Medication(s) refilled and signed per [facility] Chronic Medication Refill Standing Order for Pediatricand Adult Patients. Requested Prescriptions Pending Prescriptions Disp Refills albuterol 108 (90 Base) MCG/ACT Aerosol Solution [Pharmacy Med Name: ALBUTEROL SULFATE HFA HFA AEROSOL SOLN] 18 g 1 Sig: USE TWO (2) PUFF(S) BY INHALATION ROUTE EVERY FOUR (4) HOURS NEEDED WHEEZING Short Acting Inhaled Beta-Agonists Protocol Passed - 09/04/2023 9:51 AM Passed - Visit with relevant provider in past 12 months or upcoming 90 days Recent Visits Date Type Provider Dept 08/20/23 Office Visit Werner Swift MD [facility] 08/15/23 Office Visit Keith Craft MD [facility] 05/21/23 Office Visit Werner Swift MD [facility] [place] [facility] 05/02/23 Office Visit Keith Craft MD [facility] 04/12/23 Office Visit Keith Craft MD [facility] 01/29/23 Office Visit Werner Swift MD [facility] 12/10/22 Office Visit Keith Craft MD [facility] 10/25/22 Office Visit Werner Swift MD [facility] [place] [facility] 09/10/22 Office Visit Keith Craft MD [facility] Showing recent visits within past 365 days and meeting all other requirements Future Appointments Date Type Provider Dept 11/21/23 Appointment Werner Swift MD [facility] Showing future appointments within next 90 days and meeting all other requirements documented in this encounter Plan of Treatment Upcoming Encounters Date Type Department Care Team (Late st Contact Info) Description 07/13/2024 1:30 PM ORDNANCE MECHANIC [facility] Visit [facility] - [place] [address]2 [place] [address] Liz Capellan, DO [address] [address] 07/20/2024 2:15 PM ORDNANCE MECHANIC Office Visit [facility] - Endocrinology - [place] #2 [place] [address] Ana Vivar N, DIE FITTER, AUTO DESIGN DETAILER [address] [facility] [address] [place] [address] Yasmin Restrepo MD [address] [address] [place] [address] 07/31/2024 1:00 PM ORDNANCE MECHANIC [facility] [address] [place] [address] Werner Swift MD #2 [place] [address] Discharge Disposition: Discharged to home or Selfcare 08/03/2024 1:15 PM CDT [facility] - Pulmonology & Sleep Medicine [facility] [address]2 [place] [place] [address] Werner Swift MD #2 [place] [address] 09/02/2024 2:00 PM CDT [facility] [address] [place] [address] Werner Swift MD #2 [place] [address] Discharge Disposition: Discharged to home or Selfcare 10/09/2024 2:30 PM CDT Office Visit [facility] Medical Group - Family Medicine [facility] [address] [place] [address] Liz Capellan, DO 2 [facility] [facility] [address] [place] [address] documented as of this encounter Goals Goal [...] Zones/Action plan education. I will notify my Associate Embalmer/Funeral Director if my symptoms fall in the [...] - 19 04/27/2024 04/27/2024 04/27/2024 2:19 PM ORDNANCE MECHANIC Assessment Noted Time PHQ-9 Depression Total Score: 1 03/07/20 21 10:29 AM CDT documented as of this encounter Care Teams Cephalometric Tracer Relationship Specialty Start Date End Date Keith Craft MD PCP - General Family Medicine 01/14/19 12/26/23 Liz Capellan DO [address] [id number] PCP - General Family Medicine 12/27/23 Quang Locke DO Gastroenterology 01/18/16 [place] [address] [address] 05/25/21 Werner Swift MD #2 [place] [address] Consulting Physician Pulmonary Disease 01/30/22 documented as of this encounter
--- OUTSIDE RECORDS SUMMARY | 2024-07-10 13:43 | XMS_ITS | Encounter Summary ---
Author Organization [facility] Address [address] [place] [address] Phone Care Team Providers Care Back Tender Paper Machine Name Role Phone Quang Locke DO Unavailable [phone] Keith Craft MD Primary Care Provider [phone] Silvio Schulte MD Unavailable [phone] Werner Swift MD Unavailable Liz Capellan DO Primary Care Provider [phone] Reason for Visit * Reason Comments Medication Refill Encounter Details Date Type Department Care Team (Late st Contact Info) Description 09/25/2023 Refill [facility] #2 [place] [address] Keith Craft MD #1 [place] [address] Medication Refill Social History Tobacco Use Types Packs/Day Years Used Date Smoking Tobacco: Former Cigarettes 2 50 1 - 03/16/2018 Smokeless Tobacco: Never Comments:Still uses nictoine patches and gum Alcohol Use Standard Drinks/Week Comments No 0 (1 standard drink = 0.6 oz pur e alcohol) [facility] Utilities Answer Date Recorded In the past [...] often do you attend chur ch or faith services? Never 07/13/2023 Do you belong to any clubs o r organizations such as quaker groups, unions, fraternal or athletic groups, or [...] Score - Questions 1-9 0 /0 08/2021 [facility] [place] of Occupat ional Health - Occupational Stress [...] place to sleep or slept in a fpc (including now)? No 07/13/2023 Education Answer Date [...] Telephone Encounter - Gloria Cornejo RN - 09/26/2023 9:10 AM CDT This are not covered by insurance. Another pen needle was sent in last month. documented in this encounter Plan of Treatment Upcoming Encounters Date Type Department Care Team (Late st Contact Info) Description 07/13/2024 1:30 PM VICE PRESIDENT OF FINANCE Office Visit [facility] #2 [place] [address] Liz Capellan L, DO 2 [facility] [address] [place] [address] 07/20/2024 2:15 PM VICE PRESIDENT OF FINANCE Office Visit [facility] - Endocrinology [facility] #2 [place] [address] Ana Vivar, LOSS CONTROL CONSULTANT, RECORDS COORDINATOR [address] [address] Yasmin Restrepo MD #[address] [address] 07/31/2024 1:00 PM VICE PRESIDENT OF FINANCE [facility] [address] [place] [address] Werner Swift MD #2 [place] [address] Discharge Disposition: Discharged to home or Selfcare 08/03/2024 1:15 PM CDT [facility] #2 [place] [address] Werner Swift MD #2 [place] [address] 09/02/2024 2:00 PM CDT [facility] 1 [place] [address] Werner Swift MD #2 [place] [address] Discharge Disposition: Discharged to home or Selfcare 10/09/2024 2:30 PM CDT Office Visit [facility] Medical Group - Family Medicine - [place] #[address] [place] [address] Liz Capellan, DO 2 [address] [place], [place]. [address] [place] [address] documented as of this encounter Goals Goal [...] Zones/Action plan education. I will notify my Graphic Artist if my symptoms fall in the y [...] - 19 04/27/2024 04/27/2024 04/27/2024 2:19 PM VICE PRESIDENT OF FINANCE Assessment Noted Time PHQ-9 Depression Total Score: 1 03/07/20 21 10:29 AM CDT documented as of this encounter Care Teams Back Tender Paper Machine Relationship Specialty Start Date End Date Keith Craft MD PCP - General Family Medicine 01/14/19 12/26/23 Liz Capellan DO [address] [id number] PCP - General Family Medicine 12/27/23 Quang Locke DO Gastroenterology 01/18/16 [place] [address] [address] 05/25/21 Werner Swift MD #2 [place] [address] Consulting Physician Pulmonary Disease 01/30/22 documented as of this encounter
--- OUTSIDE RECORDS SUMMARY | 2024-07-10 13:43 | XMS_ITS | Encounter Summary ---
Author Organization [facility] Address [address] [place] [address] Phone Care Team Providers Care Surgical Orderly Name Role Phone Quang Locke Unavailable [phone] Keith Craft MD Primary Care Provider [phone] Bri Rollins RN Unavailable Unavailable Silvio Schulte MD Unavailable [phone] Bri Rollins RN Unavailable Unavailable Werner Swift MD Unavailable Liz Capellan DO Primary Care Provider [phone] Reason for Visit * Reason Comments Medication Refill Encounter Details Date Type Department Care Team (Late st Contact Info) Description 03/20/2023 Refill [facility] 2 West [address] [place] [address] Keith Craft MD #1 [place] [address] Medication Refill Social History Tobacco Use Types [...] suspected to have Coronavirus/COVID-19? No / Unsure 02/26/2023 12:22 PM CDT documented as of this encounter Miscellaneous Notes * Telephone Encounter - Gloria Cornejo RN - 03/20/2023 10:14 AM CDT Per nursing clinical judgement, provider to review and approve the medication(s) order(s) if appropriate. Requested Prescriptions Pending Prescriptions Disp Refills NovoLOG FlexPen 100 UNIT/ML Solution Pen-injector [Pharmacy Med Name: NOVOLOG FLEXPEN FLEXPEN SOLN PEN-INJ] 15 mL 1 Sig: SIX (6) UNITS BY SUBCUTANEOUS ROUTE TWO (2) TIMES DAILY. There is no refill protocol information for this order documented in this encounter Plan of Treatment Upcoming Encounters Date Type Department Care Team (Late st Contact Info) Description 07/13/2024 1:30 PM CIRCULATION WORKER Office Visit [facility] Medical Group - Family Medicine [facility] #2 [place] [address] Liz Capellan, DO 2 [facility] [address] [place] [address] 07/20/2024 2:15 PM CIRCULATION WORKER Office Visit [facility] Medical [facility] - Endocrinology [facility] #2 [place] [address] Ana Vivar, CONTACT CENTER REPRESENTATIVE, ORCHID WORKER 2 [facility] [address] [place] [address] Yasmin Restrepo MD #[address] [address] 07/31/2024 1:00 PM CIRCULATION WORKER [facility] [address] [place] [address] Werner Swift MD #2 [place] [address] Discharge Disposition: Discharged to home or Selfcare 08/03/2024 1:15 PM CDT Office Visit [facility] - Pulmonology & Sleep Medicine [facility] #2 [place] [address] Werner Swift MD #2 [place] [address] 09/02/2024 2:00 PM CDT [facility] [address] [place] [address] Werner Swift MD #2 [place] [address] Discharge Disposition: Discharged to home or Selfcare 10/09/2024 2:30 PM CDT Office Visit [facility] Medical [facility] - Family Medicine [facility] #2 [place] [address] Liz Capellan, DO 2 [facility] [address] [place] [address] documented as of this encounter Goals Goal [...] Zones/Action plan education. I will notify my Damage Adjuster if my symptoms fall in the y ellow zone . I will consider receiving an influenza and pneumonia vaccination, if applicable. -I will call the office if I experience any symptoms listed above to discuss at home management options. documented as of this encounter Visit Diagnoses Diagnosis Type 2 diabetes mellitus with diabetic neuropathy, with long-term current use of insulin ([facility]) documented in this encounter Additional Health Concerns Infection Onset Date Last Indicated Resolved Time Stenotrophomonas maltophilia Comment:Must have a follow up respiratory sample to remove isolation flag. 10/20/2021 10/20/2021 COVID - 19 04/18/2023 04/18/2023 04/28/2023 12:1 6 AM CIRCULATION WORKER COVID - 19 07/13/2023 07/13/2023 07/23/2023 12:1 6 AM CIRCULATION WORKER Respiratory Rule Out - RPA 03/17/2024 03/17/2024 1 3:36 PM CDT COVID - 19 04/27/2024 04/27/2024 04/27/2024 2:19 PM CIRCULATION WORKER Assessment Noted Time PHQ-9 Depression Total Score: 1 03/07/20 21 10:29 AM CDT documented as of this encounter Care Teams Surgical Orderly Relationship Specialty Start Date End Date Keith Craft MD PCP - General Family Medicine 01/14/19 12/26/23 Liz Capellan DO [address] [address] PCP - General Family Medicine 12/27/23 Quang Locke DO Gastroenterology 01/18/16 Bri Rollins RN [place] Damage Adjuster 03/07/21 05/22/23 [place] [address] [address] 05/25/21 Bri Rollins RN [place] Nurse Damage Adjuster 03/07/21 05/23/23 Werner Swift MD #2 [place] [address] Consulting Physician Pulmonary Disease 01/30/22 documented as of this encounter
--- OUTSIDE RECORDS SUMMARY | 2024-07-10 13:43 | XMS_ITS | Encounter Summary ---
Author Organization [facility] Address [address] [place] [address] Phone Care Team Providers Care Library Media Technician Name Role Phone Quang Locke DO Unavailable [phone] Keith Craft MD Primary Care Provider [phone] Silvio Schulte MD Unavailable [phone] Werner Swift MD Unavailable Liz Capellan DO Primary Care Provider [phone] Reason for Visit * Reason Comments Medication Refill Encounter Details Date Type Department Care Team (Late st Contact Info) Description 10/29/2023 Refill [facility] #2 [place] [address] Keith Craft MD #1 [place] [address] Medication Refill Social History Tobacco Use Types Packs/Day Years Used Date Smoking Tobacco: Former Cigarettes 2 50 1 - 03/16/2018 Smokeless Tobacco: Never Comments:Still uses nictoine patches and gum Alcohol Use Standard Drinks/Week Comments No 0 (1 standard drink = 0.6 oz pur e alcohol) [facility] Utilities Answer Date Recorded In the [...] Score - Questions 1-9 0 /0 08/2021 [facility] of Occupat ional Health - Occupational Stress [...] place to sleep or slept in a fci (including now)? No 07/13/2023 Education Answer Date [...] Telephone Encounter - Gloria Cornejo RN - 10/29/2023 11:07 AM CDT Medication warnings Per nursing clinical judgement, provider to review and approve the medication(s) order(s) if appropriate. Requested Prescriptions Pending Prescriptions Disp Refills DULoxetine (CYMBALTA) [address] Particles [Pharmacy Med Name: DULOXETINE HYDROCHLORIDE 30MG CAPSULE DR PART] 90 Capsule 1 Sig: TAKE ONE (1) CAPSULE BY MOUTH DAILY. TO TAKE DAILY WITH THE 60 MG TAB. SNRI (6 Month Refill Only) Protocol Passed - 10/29/2023 10:13 AM Passed - Visit with relevant provider in past 6 months or upcoming 90 days Recent Visits Date Type Provider Dept 08/15/23 Office Visit Keith Craft MD [facility] 05/02/23 Office Visit Keith Craft MD [facility] Showing recent visits within past 182 days and meeting all other requirements Future Appointments Date Type Provider Dept 12/20/23 Appointment Keith Craft MD [facility] Showing [...] st Contact Info) Description 07/13/2024 1:30 PM COOKER SYRUP [facility] Visit [facility] - [place] [address]2 [place] [address] Liz Capellan L, DO [address] [address] 07/20/2024 2:15 PM COOKER SYRUP Office Visit [facility] - Endocrinology - [place] #2 [place] [address] Ana Vivar, DRUM PRINTER, PERFORMANCE TEST ARCHITECT 2 [facility] [address] [place] [address] Yasmin Restrepo MD #[address] [place] [address] 07/31/2024 1:00 PM COOKER SYRUP [facility] [address] [place] [address] Werner Swift MD #2 [place] [address] Discharge Disposition: Discharged to home or Selfcare 08/03/2024 1:15 PM CDT Office Visit [facility] - Pulmonology & Sleep [facility] #2 [place] [address] Werner Swift MD #2 [place] [address] 09/02/2024 2:00 PM CDT Appointment [facility] Respiratory Therapy 1 [place] [address] Werner Swift MD #2 [place] [address] Discharge Disposition: Discharged to home or Selfcare 10/09/2024 2:30 PM CDT Office Visit [facility] Family [facility] #2 [place] [address] Liz Capellan, DO [address] [address] documented as of this encounter Goals Goal [...] Zones/Action plan education. I will notify my Contracts Specialist if my symptoms fall in the [...] - 19 04/27/2024 04/27/2024 04/27/2024 2:19 PM COOKER SYRUP Assessment Noted Time PHQ-9 Depression Total Score: 1 03/07/20 21 10:29 AM CDT documented as of this encounter Care Teams Library Media Technician Relationship Specialty Start Date End Date Keith Craft MD PCP - General Family Medicine 01/14/19 12/26/23 Liz Capellan DO [address] [address] PCP - General Family Medicine 12/27/23 Quang Locke DO Gastroenterology 01/18/16 [place] [address] [address] 05/25/21 Werner Swift MD #2 [place] [address] Consulting Physician Pulmonary Disease 01/30/22 documented as of this encounter
--- OUTSIDE RECORDS SUMMARY | 2024-07-10 13:43 | XMS_ITS | Encounter Summary ---
Author Organization [facility] Address [address] [place] [address] Phone Care Team Providers Care Prick Stitcher Name Role Phone Quang Locke DO Unavailable [phone] Keith Craft MD Primary Care Provider [phone] Silvio Schulte MD Unavailable [phone] Werner Swift MD Unavailable Liz Capellan DO Primary Care Provider [phone] Reason for Visit * Reason Comments Medication Refill Encounter Details Date Type Department Care Team (Late st Contact Info) Description [facility] [address] [place] [address] Werner Swift MD #2 [place] [address] Medication Refill Social History Tobacco Use Types Packs/Day Years Used Date Smoking Tobacco: Former Cigarettes 2 50 1 - 03/16/2018 Smokeless Tobacco: Never Comments:Still uses nictoine patches and gum Alcohol Use Standard Drinks/Week Comments No 0 (1 standard drink = 0.6 oz pur e alcohol) [facility] Utilities Answer Date Recorded In [...] often do you attend chur ch or sikhism services? Never 07/13/2023 Do you belong to any clubs o r organizations such as sikh groups, unions, fraternal or athletic groups, or [...] Score - Questions 1-9 0 /0 08/2021 [facility] [place] of Occupat ional Health - Occupational Stress [...] place to sleep or slept in a long-term (including now)? No 07/13/2023 Education Answer Date [...] Telephone Encounter - Emily Jesus RN - 10/08/2023 10:07 AM CDT Medication(s) refilled and signed per [facility] Chronic Medication Refill Standing Order for Pediatricand Adult Patients. Requested Prescriptions Pending Prescriptions Disp Refills Mucus Relief 600 MG TABLET SR 12 HR [Pharmacy Med Name: MUCUS RELIEF 600MG ER TABLET ER 12HR] 60 Tablet 1 Sig: TAKE 1 TABLET BY MOUTH TWO (2) TIMES DAILY. There is no refill protocol information for this order documented in this encounter Plan of Treatment Upcoming Encounters Date Type Department Care Team (Late st Contact Info) Description 07/13/2024 1:30 PM PLASTIC SHEETS SUPERVISOR Office Visit [facility] - Family Medicine - [place] #2 [place] [address] Liz Capellan, DO [address] [facility] [address] [place] [address] 07/20/2024 2:15 PM PLASTIC SHEETS SUPERVISOR [facility] [place] #2 [place] [address] Ana Vivar, WOOD GRAINER, GUARDIAN AD LITEM 2 [facility] [address] [place] [address] Yasmin Restrepo MD #[address] [address] 07/31/2024 1:00 PM PLASTIC SHEETS SUPERVISOR [facility] [address] [place] [address] Werner Swift MD #2 [place] [address] Discharge Disposition: Discharged to home or Selfcare 08/03/2024 1:15 PM CDT [facility] - Pulmonology & Sleep Medicine - [place] #2 [place] [address] Werner Swift MD #2 [place] [address] 09/02/2024 2:00 PM CDT [facility] 1 [place] [address] Werner Swift MD #[address] [place] [address] Discharge Disposition: Discharged to home or Selfcare 10/09/2024 2:30 PM CDT Office Visit [facility] Medical Group - Family [facility] - [place] #[address] [place] [address] Liz Capellan, DO 2 [place], [address]. [address] [place] [address] documented as of this encounter Goals Goal [...] Zones/Action plan education. I will notify my Systems Mechanic if my symptoms fall in the y ellow zone . I will consider receiving an influenza and pneumonia vaccination, if applicable. -I will call the office if I experience any symptoms listed above to discuss at home management options. documented as of this encounter Visit Diagnoses Diagnosis Chronic cough Cough documented in this encounter Additional Health Concerns Infection Onset Date Last Indicated Resolved Time Stenotrophomonas maltophilia Comment:Must have a follow up respiratory sample to remove isolation flag. 10/20/2021 10/20/2021 Respiratory Rule Out - RPA 03/17/2024 03/17/2024 1 3:36 PM CDT COVID - 19 04/27/2024 04/27/2024 04/27/2024 2:19 PM PLASTIC SHEETS SUPERVISOR Assessment Noted Time PHQ-9 Depression Total Score: 1 03/07/20 21 10:29 AM CDT documented as of this encounter Care Teams Prick Stitcher Relationship Specialty Start Date End Date Keith Craft MD PCP - General Family Medicine 01/14/19 12/26/23 Liz Capellan DO [address] [address] PCP - General Family Medicine 12/27/23 Quang Locke DO Gastroenterology 01/18/16 [place] [address] [address] 05/25/21 Werner Swift MD #2 [place] [address] Consulting Physician Pulmonary Disease 01/30/22 documented as of this encounter
--- OUTSIDE RECORDS SUMMARY | 2024-07-10 13:43 | XMS_ITS | Encounter Summary ---
Author Organization [facility] Address [address] [place] [address] Phone Care Team Providers Care Laborer Yard Name Role Phone Quang Locke DO Unavailable [phone] Keith Craft MD Primary Care Provider [phone] Silvio Schulte MD Unavailable [phone] Werner Swift MD Unavailable Liz Capellan DO Primary Care Provider [phone] Reason for Visit * Reason Comments Medication Refill Encounter Details Date Type Department Care Team (Late st Contact Info) Description 09/16/2023 [facility]ill [facility] #2 [place] [phone] Keith Craft MD #1 [place] [address] Medication Refill Social History Tobacco Use Types Packs/Day Years Used Date Smoking Tobacco: Former Cigarettes 2 50 1 - 03/16/2018 Smokeless Tobacco: Never Comments:Still uses nictoine patches and gum Alcohol Use Standard Drinks/Week Comments No 0 (1 standard drink = 0.6 oz pur e alcohol) [facility] Utilities Answer Date Recorded In the [...] often do you attend chur ch or gnosticism services? Never 07/13/2023 Do you belong to [...] Score - Questions 1-9 0 /0 08/2021 [facility] [place] of Occupat ional Health - Occupational Stress [...] Telephone Encounter - Gloria Cornejo RN - 09/17/2023 8:55 AM CDT New Rx Per nursing clinical judgement, provider to review and approve the medication(s) order(s) if appropriate. Requested Prescriptions Pending Prescriptions Disp Refills insulin pen needle (NovoFine Autocover Pen Needle) 30G X 8 MM Misc 300 Each 1 Sig: USE WITH INSULIN THREE (3) TIMES DAILY There is no refill protocol information for this order documented in this encounter Plan of Treatment Upcoming Encounters Date Type Department Care Team (Late st Contact Info) Description 07/13/2024 1:30 PM STITCHING DEPARTMENT SUPERVISOR Office Visit [facility] - Family Medicine - [place] #2 [place] [address] Liz Capellan L, DO 2 [facility] [address] [place] [address] 07/20/2024 2:15 PM STITCHING DEPARTMENT SUPERVISOR [facility] [place] [facility]2 [place] [address] Ana Vivar, COMPUTER REPAIRER, CURATOR OF MANUSCRIPTS 2 [facility] [address] [place] [address] Yasmin Restrepo MD #[address] [address] 07/31/2024 1:00 PM STITCHING DEPARTMENT SUPERVISOR [facility] [address] [place] [address] Werner Swift MD #2 [place] [address] Discharge Disposition: Discharged to home or Selfcare 08/03/2024 1:15 PM CDT [facility] - Pulmonology & Sleep Medicine - [place] #2 [place] [address] Werner Swift MD #2 [place] [address] 09/02/2024 2:00 PM CDT [facility] 1 [place] [address] Werner Swift MD #[address] [place] [address] Discharge Disposition: Discharged to home or Selfcare 10/09/2024 2:30 PM CDT Office Visit [facility] [address] [place] [address] Liz Capellan, DO 2 [facility] [address] [place] [address] documented as of this encounter Goals Goal [...] plan education. I will notify my Machine Sewer if my symptoms fall in the y [...] - 19 04/27/2024 04/27/2024 04/27/2024 2:19 PM STITCHING DEPARTMENT SUPERVISOR Assessment Noted Time PHQ-9 Depression Total Score: 1 03/07/20 21 10:29 AM CDT documented as of this encounter Care Teams Laborer Yard Relationship Specialty Start Date End Date Keith Craft MD PCP - General Family Medicine 01/14/19 12/26/23 Liz Capellan DO [address] [address] PCP - General Family Medicine 12/27/23 Quang Locke DO Gastroenterology 01/18/16 [place] [address] [address] 05/25/21 Werner Swift MD #2 [place] [address] Consulting Physician Pulmonary Disease 01/30/22 documented as of this encounter
--- OUTSIDE RECORDS SUMMARY | 2024-07-10 13:43 | XMS_ITS | Encounter Summary ---
Author Organization [facility] Address [address] [place] [address] Phone Care Team Providers Care Exercise Planner Name Role Phone Quang Locke Unavailable [phone] Keith Craft MD Primary Care Provider [phone] Bri Rollins RN Unavailable Unavailable Silvio Schulte MD Unavailable [phone] Bri Rollins RN Unavailable Unavailable Werner Swift MD Unavailable Liz Capellan DO Primary Care Provider [phone] Reason for Visit * Reason Comments Medication Refill Encounter Details Date Type Department Care Team (Late st Contact Info) Description 04/02/2023 Refill [facility] #2 [place] [address] Keith Craft MD #1 [place] [address] Medication Refill Social History Tobacco Use Types [...] Telephone Encounter - Gloria Cornejo RN - 04/04/2023 11:29 AM CST Original prescriptions ordered today by Dr Craft. MICROWAVE ENGINEER * Telephone Encounter - Gloria Cornejo RN - 04/02/2023 3:13 PM CST duplicates MICROWAVE ENGINEER documented in this encounter Plan of Treatment Upcoming Encounters Date Type Department Care Team (Late st Contact Info) Description 07/13/2024 1:30 PM RF MICROWAVE ENGINEER Office Visit [facility] - Family Medicine - [place] #2 [place] [address] Liz Capellan L, DO 2 [facility] [address] [place] [address] 07/20/2024 2:15 PM RF MICROWAVE ENGINEER Office Visit [facility] - Endocrinology - [place] #2 [place] [address] Ana Vivar, PRIVATE TUTOR, SPECIAL EVENTS FUNDRAISER 2 [facility] [address] [place] [address] Yasmin Restrepo MD #[address] [phone] 07/31/2024 1:00 PM RF MICROWAVE ENGINEER [facility] [address] [place] [address] Werner Swift MD #2 [place] [address] Discharge Disposition: Discharged to home or Selfcare 08/03/2024 1:15 PM CDT Office Visit [facility] - Pulmonology & Sleep Medicine [facility] #2 [place] [address] Werner Swift MD #2 [place] [address] 09/02/2024 2:00 PM CDT [facility] 1 [place] [address] Werner Swift MD #2 [place] [address] Discharge Disposition: Discharged to home or Selfcare 10/09/2024 2:30 PM CDT Office Visit [facility] #2 [place] [address] Liz Capellan, DO [address] [address] documented as of this encounter Goals Goal [...] Zones/Action plan education. I will notify my Bottler Helper if my symptoms fall in the y ellow zone . I will consider receiving an influenza and pneumonia vaccination, if applicable. -I will call the office if I experience any symptoms listed above to discuss at home management options. documented as of this encounter Visit Diagnoses Diagnosis Anxiety and depression Dysthymic disorder Chronic low back pain, unspecified back pain laterality, unspecified whether sciatica present documented in this encounter Additional Health Concerns Infection Onset Date Last Indicated Resolved Time Stenotrophomonas maltophilia Comment:Must have a follow up respiratory sample to remove isolation flag. 10/20/2021 10/20/2021 COVID - 19 04/18/2023 04/18/2023 04/28/2023 12:1 6 AM RF MICROWAVE ENGINEER COVID - 19 07/13/2023 07/13/2023 07/23/2023 12:1 6 AM RF MICROWAVE ENGINEER Respiratory Rule Out - RPA 03/17/2024 03/17/2024 1 3:36 PM CDT COVID - 19 04/27/2024 04/27/2024 04/27/2024 2:19 PM RF MICROWAVE ENGINEER Assessment Noted Time PHQ-9 Depression Total Score: 1 03/07/20 10:29 AM CDT documented as of this encounter Care Teams Exercise Planner Relationship Specialty Start Date End Date Keith Craft MD PCP - General Family Medicine 01/14/19 12/26/23 Liz Capellan DO [address] [address] PCP - General Family Medicine 12/27/23 Quang Locke DO Gastroenterology 01/18/16 Bri Rollins RN [place] Bottler Helper 03/07/21 05/22/23 [place] [address] [address] 05/25/21 Bri Rollins, KATEY [place] Nurse Bottler Helper 03/07/21 05/23/23 Werner Swift MD #2 [place] [address] Consulting Physician Pulmonary Disease 01/30/22 documented as of this encounter
--- OUTSIDE RECORDS SUMMARY | 2024-07-10 13:43 | XMS_ITS | Encounter Summary ---
Author Organization [facility] Address [address] [place] [address] Phone Care Team Providers Care Corporate Communications Intern Name Role Phone Quang Locke DO Unavailable [phone] Keiht Craft MD Primary Care Provider [phone] Silvio Schulte MD Unavailable [phone] Werner Swift MD Unavailable Liz Capellan DO Primary Care Provider [phone] Reason for Visit * Reason Comments Medication Refill Encounter Details Date Type Department Care Team (Late st Contact Info) Description 09/02/2023 Refill [facility] Family Medicine [facility] #2 [place] [address] Marcin Anderson APRN, BAGMAN/WOMAN #[address] [address] Medication Refill Social History Tobacco Use Types Packs/Day Years Used Date Smoking Tobacco: Former Cigarettes 2 50 1 - 03/16/2018 Smokeless Tobacco: Never Comments:Still uses nictoine patches and gum Alcohol Use Standard Drinks/Week Comments No 0 (1 standard drink = 0.6 oz pur e alcohol) [facility] Utilities Answer Date Recorded In the [...] often do you attend chur ch or amish services? Never 07/13/2023 Do you belong to any clubs o r organizations such as hindu groups, unions, fraternal or athletic groups, or [...] Score - Questions 1-9 0 /0 08/2021 [facility] Occupat ional Health - Occupational Stress [...] Telephone Encounter - Kelin Nance RN - 09/02/2023 2:53 PM CDT PDMP 3-16-24, 30 days Medication failed the protocol, provider to review and approve the medication order if appropriate. Requested Prescriptions Pending Prescriptions Disp Refills diazePAM (VALIUM) 5 MG Tablet [Pharmacy Med Name: DIAZEPAM 5MG TABLET] 30 Tablet 0 Sig: TAKE 1 TABLET BY MOUTH DAILY NEEDED FOR ANXIETY 3.16 Not Delegated - Benzodiazepines Protocol Failed - 09/02/2023 9:39 AM Failed - This refill cannot be [...] [place] 09/10/22 Office Visit Keith Craft MD [facility] [place] Showing recent visits within past 365 days and meeting all other requirements Future Appointments No visits were found meeting these conditions. Showing future appointments within next 90 days and meeting all other requirements documented in this encounter Plan of Treatment Upcoming Encounters Date Type Department Care Team (Late st Contact Info) Description 07/13/2024 1:30 PM SOLUTION LEAD Office Visit [facility] - Family Medicine - [place] #2 [place] [address] Liz Capellan L, DO [address] [address] 07/20/2024 2:15 PM SOLUTION LEAD Office Visit [facility] - Endocrinology - [place] #2 [place] [address] Ana Vivar, ASIAN ART CURATOR, BAGMAN/WOMAN [address] [address] Yasmin Restrepo MD #[address] [address] 07/31/2024 1:00 PM SOLUTION LEAD [facility] [address] [place] [address] Werner Swift MD #2 [place] [address] Discharge Disposition: Discharged to home or Selfcare 08/03/2024 1:15 PM CDT [facility] #2 [place] [address] Werner Swift MD #2 [place] [address] 09/02/2024 2:00 PM CDT Appointment [facility] Respiratory Therapy 1 [place] [address] Werner Swift MD #2 [place] [address] Discharge Disposition: Discharged to home or Selfcare 10/09/2024 2:30 PM CDT Office Visit [facility] Family Medicine [facility] #2 [place] [address] Liz Capellan, DO [address] [address] documented as of this encounter Goals Goal [...] Zones/Action plan education. I will notify my Director Of Cardiac Rehabilitation if my symptoms fall in the y [...] - 19 04/27/2024 04/27/2024 04/27/2024 2:19 PM SOLUTION LEAD Assessment Noted Time PHQ-9 Depression Total Score: 1 03/07/20 21 10:29 AM CDT documented as of this encounter Care Teams Corporate Communications Intern Relationship Specialty Start Date End Date Keith Craft MD PCP - General Family Medicine 01/14/19 12/26/23 Liz Capellan DO [address] [address] PCP - General Family Medicine 12/27/23 Quang Locke DO Gastroenterology 01/18/16 [place] [address] [place] [address] 05/25/21 Werner Swift MD #2 [place] [address] Consulting Physician Pulmonary Disease 01/30/22 documented as of this encounter
--- OUTSIDE RECORDS SUMMARY | 2024-07-10 13:43 | XMS_ITS | Encounter Summary ---
Author Organization [facility] Address [address] [place] [address] Phone Care Team Providers Care Manager Transition Name Role Phone Quang Locke Unavailable [phone] Keith Craft MD Primary Care Provider [phone] Bri Rollins RN Unavailable Unavailable Silvio Schulte MD Unavailable [phone] Bri Rollins RN Unavailable Unavailable Werner Swift MD Unavailable Liz Capellan DO Primary Care Provider [phone] Reason for Visit * Reason Comments Medication Refill Encounter Details Date Type Department Care Team (Late st Contact Info) Description 07/10/2021 Refill [facility] Medicine [facility] #2 [place] [address] Ketih Craft MD #1 [place] [address] Medication Refill Social History Tobacco Use Types [...] Telephone Encounter - Gloria Cornejo RN - 07/11/2021 11:16 AM CST PDMP 06/12/21 Medication failed the protocol, provider to review and approve the medication order if appropriate. Requested Prescriptions Pending Prescriptions Disp Refills HYDROcodone-acetaminophen (NORCO) 7.5-325 MG Tablet [Pharmacy Med Name: HYDROCODON-APAP 7.5-325 TAB7.5-325 Tablet] 30 Tablet 0 Sig: TAKE 1 TABLET BY MOUTH DAILY NEEDED FOR MODERATE OR MORE SEVERE PAIN. Not Delegated - Opioid Combinations Protocol Failed - 07/10/2021 2:20 PM Failed - This refill cannot be delegated Passed - Visit with relevant provider in past 12 months or upcoming 90 days Recent Visits Date Type Provider Dept 05/25/21 Office Visit Marcin Anderson APRN, OPEN CUT EXAMINER [facility] [place] 05/05/21 Office Visit Brie Denis, PAC [facility] [place] 04/14/21 Office Visit Keith Craft MD [facility] [place] 03/23/21 Office Visit Keith Craft MD [facility] [place] 02/07/21 Office Visit Keith Craft MD [facility] 02/03/21 Office Visit Brie Denis, PAC [facility] [place] 01/12/21 Office Visit Keith Craft MD [facility] 10/12/20 Office Visit Keith Craft MD [facility] 10/04/20 Office Visit Keith Craft MD [facility] [place] Showing recent visits within past 365 days and meeting all other requirements Future Appointments Date Type Provider Dept 08/14/21 Appointment Keith Craft MD [facility] Showing future appointments within next 90 days and meeting all other requirements USION ANALYST documented in this encounter Plan of Treatment Upcoming Encounters Date Type Department Care Team (Late st Contact Info) Description 07/13/2024 1:30 PM INTRUSION ANALYST Office Visit [facility] - Family Medicine - [place] #2 [facility] [address] Liz Capellan L, DO 2 [facility] [address] [place] [address] 07/20/2024 2:15 PM INTRUSION ANALYST [facility] [place] #2 [facility] [place] [address] Ana Vivar N, ELECTRIC METER INSTALLER HELPER, OPEN CUT EXAMINER 2 [facility] [address] [place] [address] Yasmin Restrepo MD #[address] [address] 07/31/2024 1:00 PM INTRUSION ANALYST [facility] [address] [place] [address] Werner Swift MD #2 [place] [address] Discharge Disposition: Discharged to home or Selfcare 08/03/2024 1:15 PM CDT [facility] - Pulmonology & [facility] Medicine - [place] #2 [place] [address] Werner Swift MD #2 [place] [address] 09/02/2024 2:00 PM CDT [facility] 1 [place] [address] Werner Swift MD #2 [place] [address] Discharge Disposition: Discharged to home or Selfcare 10/09/2024 2:30 PM CDT Office Visit [facility] - Family [facility] #2 [place] [address] Liz Capellan, DO [address] [address] documented as of this encounter Goals Goal [...] Zones/Action plan education. I will notify my Hogshead Stripper if my symptoms fall in the [...] - 19 07/23/2021 07/23/2021 07/24/2021 6:31 AM INTRUSION ANALYST COVID - 19 10/19/2021 10/19/2021 10/20/2021 7:45 AM CDT Respiratory Rule Out - RPA 10/19/2021 10/19/2021 0 10/20/2021 2:10 PM CDT Stenotrophomonas maltophilia Comment:Must have a follow up respiratory sample to remove isolation flag. 10/20/2021 10/20/2021 COVID - 19 04/20/2022 04/20/2022 04/30/2022 12:1 8 AM INTRUSION ANALYST COVID - 19 07/18/2022 07/18/2022 07/28/2022 12:1 6 AM INTRUSION ANALYST COVID - 19 08/21/2022 08/21/2022 08/22/2022 8:31 AM CDT Respiratory Rule Out - RPA 08/21/2022 08/21/2022 0 08/22/2022 3:21 PM CDT COVID - 19 04/18/2023 04/18/2023 04/28/2023 12:1 6 AM INTRUSION ANALYST COVID - 19 07/13/2023 07/13/2023 07/23/2023 12:1 6 AM INTRUSION ANALYST Respiratory Rule Out - RPA 03/17/2024 03/17/2024 1 3:36 PM CDT COVID - 19 04/27/2024 04/27/2024 04/27/2024 2:19 PM INTRUSION ANALYST Assessment Noted Time PHQ-9 Depression Total Score: 1 03/07/20 21 10:29 AM CDT documented as of this encounter Care Teams Manager Transition Relationship Specialty Start Date End Date Keith Craft MD PCP - General Family Medicine 01/14/19 12/26/23 Liz Capellan DO 2 [facility] [address] [address] PCP - General Family Medicine 12/27/23 Quang Locke DO Gastroenterology 01/18/16 Bri Rollins, KATEY [place] Hogshead Stripper 03/07/21 05/22/23 [place] [address] [address] 05/25/21 Bri Rollins, RN [place] Nurse Hogshead Stripper 03/07/21 05/23/23 Werner Swift MD #2 [place] [address] Consulting Physician Pulmonary Disease 01/30/22 documented as of this encounter
--- OUTSIDE RECORDS SUMMARY | 2024-07-10 13:43 | XMS_ITS | Encounter Summary ---
Author Organization [facility] Address [address] [place] [address] Phone Care Team Providers Care Remarketing Rep Name Role Phone Quang Locke DO Unavailable [phone] Keith Craft MD Primary Care Provider [phone] Silvio Schulte MD Unavailable [phone] Werner Swift MD Unavailable Liz Capellan DO Primary Care Provider [phone] Reason for Visit * Reason Comments Medication Refill Encounter Details Date Type Department Care Team (Late st Contact Info) Description 10/28/2023 Refill [facility] #2 [place] [address] Keith Craft MD #1 [place] [address] Medication Refill Social History Tobacco Use Types Packs/Day Years Used Date Smoking Tobacco: Former Cigarettes 2 50 1 - 03/16/2018 Smokeless Tobacco: Never Comments:Still uses nictoine patches and gum Alcohol Use Standard Drinks/Week Comments No 0 (1 standard drink = 0.6 oz pur e alcohol) [facility] Utilities Answer Date Recorded In the past [...] often do you attend chur ch or buddhism services? Never 07/13/2023 Do you belong to any clubs o r organizations such as holiness groups, unions, fraternal or athletic groups, or [...] Score - Questions 1-9 0 /0 08/2021 [facility] [place] of Occupat ional Health - Occupational Stress [...] place to sleep or slept in a assisted (including now)? No 07/13/2023 Education Answer Date [...] Encounter - Gloria Cornejo RN - 10/29/2023 8:28 AM CDT Upcoming with Venancio in November - NOT Craft panel approved - needs ASH with another provider * Telephone Encounter - Gloria Cornejo RN - 10/29/2023 8:27 AM CDT Medication failed the protocol, provider to review and approve the medication order if appropriate. Requested Prescriptions Pending Prescriptions Disp Refills Tradjenta 5 MG Tablet [Pharmacy Med Name: TRADJENTA 5MG TABLET] 90 Tablet 0 Sig: TAKE ONE (1) TABLET BY MOUTH DAILY DPP-4 Inhibitors Protocol Passed - 10/28/2023 1:14 PM Passed - Visit with relevant [...] Range Status 07/27/2023 56 (L) >=60 Final gabapentin (NEURONTIN) 800 MG Tablet [Pharmacy Med Name: GABAPENTIN 800MG TABLET] 90 Tablet 3 Sig: TAKE ONE (1) TABLET BY MOUTH THREE (3) TIMES DAILY. Not Delegated - Anticonvulsants Excluding Benzodiazepines Protocol Failed - 10/28/2023 1:14 PM Failed - This refill cannot [...] 90 days and meeting all other requirements ipratropium (ATROVENT) 0.02 % Solution [Pharmacy Med Name: IPRATROPIUM BROMIDE 0.02%INH SOLUTION] 75 mL 3 Sig: TWO AND A HALF (2 & 1/2) ML BY NEBULIZATION ROUTE EVERY SIX (6) HOURS. Inhaled Anticholinergics Protocol Passed - 10/28/2023 1:14 PM Passed - Visit with relevant [...] Passed - Active short-acting beta agonist prescription Passed - No encounter with glaucoma or BPH diagnosis in the past 6 months documented in this encounter Plan of Treatment Upcoming Encounters Date Type Department Care Team (Late st Contact Info) Description 07/13/2024 1:30 PM SLITTER SCORER Office [facility] - Family Medicine - [place] #2 [place] [address] Liz Capellan L, DO [address] [address] 07/20/2024 2:15 PM SLITTER SCORER Office Visit [facility] - Endocrinology - [place] #2 [place] [address] Ana Vivar, ENTRY REP, ROADWAY DESIGNER [address] [address] Yasmin Restrepo MD #[address] [address] 07/31/2024 1:00 PM SLITTER SCORER [facility] [address] [place] [address] Werner Swift MD #2 [place] [address] Discharge Disposition: Discharged to home or Selfcare 08/03/2024 1:15 PM CDT [facility] #2 [place] [address] Werner Swift MD #2 [place] [address] 09/02/2024 2:00 PM CDT [facility] 1 [place] [address] Werner Swift MD #2 [place] [address] Discharge Disposition: Discharged to home or Selfcare 10/09/2024 2:30 PM CDT [facility] #2 [place] [address] Liz Capellan, DO [address] [id number] documented as of this encounter Goals Goal [...] plan education. I will notify my Senior Product Engineer if my symptoms fall in the y [...] - 19 04/27/2024 04/27/2024 04/27/2024 2:19 PM SLITTER SCORER Assessment Noted Time PHQ-9 Depression Total Score: 1 03/07/20 21 10:29 AM CDT documented as of this encounter Care Teams Remarketing Rep Relationship Specialty Start Date End Date Keith Craft MD PCP - General Family Medicine 01/14/19 12/26/23 Liz Capellan DO 2 [place] [address] PCP - General Family Medicine 12/27/23 Quang Locke DO Gastroenterology 01/18/16 [place] [address] [address] 05/25/21 Werner Swift MD #2 [place] [address] Consulting Physician Pulmonary Disease 01/30/22 documented as of this encounter
--- OUTSIDE RECORDS SUMMARY | 2024-07-10 13:43 | XMS_ITS | Encounter Summary ---
Author Organization [facility] Address [address] [place] [address] Phone Care Team Providers Care Patient Admitting Clerk Name Role Phone Quang Locke Unavailable Keith Craft MD Primary Care Provider [phone] Bri Rollins RN Unavailable Unavailable Silvio Schulte MD Unavailable [phone] Bri Rollins RN Unavailable Unavailable Werner Swift MD Unavailable Liz Capellan DO Primary Care Provider [phone] Reason for Visit * Reason Comments Medication Refill Encounter Details Date Type Department Care Team (Late st Contact Info) Description 11/06/2021 [facility]ill [facility] #2 [place] [address] Keith Craft MD #1 [place] [address] Medication Refill Social History Tobacco Use Types [...] Telephone Encounter - Gloria Cornejo RN - 11/07/2021 9:50 AM CDT PDMP 10/07/21 Medication failed the protocol, provider to review and approve the medication order if appropriate. Requested Prescriptions Pending Prescriptions Disp Refills HYDROcodone-acetaminophen (NORCO) 7.5-325 MG Tablet [Pharmacy Med Name: HYDROCODONE/ACETAMINOPHEN 7.5-325 TABLET] 60 Tablet 0 Sig: TAKE ONE (1) TABLET BY MOUTH TWO (2) TIMES DAILY NEEDED FOR SEVERE PAIN. Not Delegated - Opioid Combinations Protocol Failed - 11/06/2021 9:08 AM Failed - This refill cannot be delegated Passed - Visit with relevant provider in past 12 months or upcoming 90 days Recent Visits Date Type Provider Dept 11/03/21 Office Visit Keith Craft MD [facility] 10/19/21 Office Visit Keith Craft MD [facility] 10/05/21 Office Visit Keith Craft MD [facility] 09/08/21 Office [place] Brie eDnis PAC [facility] [place] 08/14/21 Office Visit Keith Craft MD [facility] 07/31/21 Office Visit Keith Craft MD [facility] 05/25/21 Office Visit Marcin Anderson, CITIZEN PARTICIPATION SPECIALIST, [place] GUIDE [facility] 05/05/21 [facility] 04[facility]14[facility]21 Office Visit Keith Craft MD [facility] 03/23/21 Office Visit Keith Craft MD [facility] Showing recent visits within past 365 days and meeting all other requirements Future Appointments Date Type Provider Dept 12/19/21 Appointment Keith Craft MD [facility] Showing future appointments within next 90 days and meeting all other requirements documented in this encounter Plan of Treatment Upcoming Encounters Date Type Department Care Team (Late st Contact Info) Description 07/13/2024 1:30 PM TRANSPORTATION MUSEUM HELPER Office Visit [facility] - Family Medicine - [place] [address] [place] [address] Liz Capellan, DO [address] [address] 07/20/2024 2:15 PM TRANSPORTATION MUSEUM HELPER Office Visit [facility] - Endocrinology - [place] [address]2 [place] [address] Ana Vivar, CITIZEN PARTICIPATION SPECIALIST, [place] GUIDE [address] [address] Yasmin Restrepo MD #[address] [address] 07/31/2024 1:00 PM TRANSPORTATION MUSEUM HELPER [facility] [address] [place] [address] Werner Swift MD #2 [place] [address] Discharge Disposition: Discharged to home or Selfcare 08/03/2024 1:15 PM CDT Office Visit [facility] - Pulmonology & Sleep Medicine [facility] #2 [place] [address] Werner Swift MD #2 [place] [address] 09/02/2024 2:00 PM CDT Appointment [facility] Respiratory Therapy 1 [place] [address] Werner Swift MD #2 [place] [address] Discharge Disposition: Discharged to home or Selfcare 10/09/2024 2:30 PM CDT Office Visit [facility] Family Medicine [facility] #2 [place] [address] Liz Capellan, DO [address] [address] documented as of this encounter Goals Goal [...] Zones/Action plan education. I will notify my Pr Manager if my symptoms fall in the [...] 19 04/20/2022 04/20/2022 04/30/2022 12:1 8 AM TRANSPORTATION MUSEUM HELPER COVID - 19 07/18/2022 07/18/2022 07/28/2022 12:1 6 AM TRANSPORTATION MUSEUM HELPER COVID - 19 08/21/2022 08/21/2022 08/22/2022 8:31 AM CDT Respiratory Rule Out - RPA 08/21/2022 08/21/2022 0 08/22/2022 3:21 PM CDT COVID - 19 04/18/2023 04/18/2023 04/28/2023 12:1 6 AM TRANSPORTATION MUSEUM HELPER COVID - 19 07/13/2023 07/13/2023 07/23/2023 12:1 6 AM TRANSPORTATION MUSEUM HELPER Respiratory Rule Out - RPA 03/17/2024 03/17/2024 1 3:36 PM CDT COVID - 19 04/27/2024 04/27/2024 04/27/2024 2:19 PM TRANSPORTATION MUSEUM HELPER Assessment Noted Time PHQ-9 Depression Total Score: 1 03/07/20 21 10:29 AM CDT documented as of this encounter Care Teams Patient Admitting Clerk Relationship Specialty Start Date End Date Keith Craft MD PCP - General Family Medicine 01/14/19 12/26/23 Liz Capellan DO 2 [facility] [address] [address] PCP - General Family Medicine 12/27/23 Quang Locke DO Gastroenterology 01/18/16 Bri Rollins, RN [place] Pr Manager 03/07/21 05/22/23 [place] [address] [address] 05/25/21 Bri Rollins, RN [place] Nurse Pr Manager 03/07/21 05/23/23 Werner Swift MD #2 [place] [address] Consulting Physician Pulmonary Disease 01/30/22 documented as of this encounter
--- OUTSIDE RECORDS SUMMARY | 2024-07-10 13:43 | XMS_ITS | Encounter Summary ---
Author Organization [facility] Address [address] [place] [address] Phone Care Team Providers Care Baked And Graphite Inspector Name Role Phone Quang Locke DO Unavailable [phone] Keith Craft MD Primary Care Provider [phone] Silvio Schulte MD Unavailable [phone] Werner Swift MD Unavailable Liz Capellan DO Primary Care Provider [phone] Reason for Visit * Reason Comments Medication Refill Encounter Details Date Type Department Care Team (Late st Contact Info) Description 10/08/2023 Refill [facility] #2 [place] [address] Keith Craft MD #1 [place] [address] Medication Refill Social History Tobacco Use Types [...] often do you attend chur ch or shinto services? Never 07/13/2023 Do you belong to any clubs o r organizations such as methodist groups, unions, fraternal or athletic groups, or [...] Score - Questions 1-9 0 /0 08/2021 [facility] [place] of Occupat ional Health - Occupational Stress [...] Telephone Encounter - Gloria Cornejo RN - 10/08/2023 2:15 PM CDT PRN medication requires review from provider Per nursing clinical judgement, provider to review and approve the medication(s) order(s) if appropriate. Requested Prescriptions Pending Prescriptions Disp Refills albuterol (PROVENTIL, VENTOLIN) (2.5 MG/3ML) 0.083% Nebulizer Soln [Pharmacy Med Name: ALBUTEROL SULFATE 0.083% NEBULIZED SOLN] 360 mL 2 Sig: USE ONE (1) VIAL THREE (3) ML BY NEBULIZATION ROUTE FOUR (4) TIMES DAILY NEEDED FOR WHEEZING OR SHORTNESS OF BREATH Short Acting Inhaled Beta-Agonists Protocol Passed - 10/08/2023 10:03 AM Passed - Visit with relevant provider in past 12 months or upcoming 90 days Recent Visits Date Type Provider Dept 08/15/23 Office Visit Keith Craft MD [facility] 05/02/23 Office Visit Keith Craft MD [facility] 04/12/23 Office Visit Keith Craft MD [facility] 12/10/22 Office Visit Keith Craft MD [facility] [...] st Contact Info) Description 07/13/2024 1:30 PM BUTCHER ASSISTANT Office Visit [facility] - Family Medicine - [place] #2 [place] [address] Liz Capellan, DO 2 [facility] [address] [place] [address] 07/20/2024 2:15 PM BUTCHER ASSISTANT Office Visit [facility] - Endocrinology - [place] #[address] [facility] [place] [address] Ana Vivar, PACKAGE LINE RELIEF OPERATOR, BACKER UP 2 [facility] [address] [place] [address] Yasmin Restrepo MD #[address] [place] [address] 07/31/2024 1:00 PM BUTCHER ASSISTANT Appointment [facility] [address] [place] [address] Werner Swift MD #2 [place] [address] Discharge Disposition: Discharged to home or Selfcare 08/03/2024 1:15 PM CDT Office Visit [facility] - Pulmonology & Sleep Medicine [facility] #2 [place] [address] Werner Swift MD #2 [place] [address] 09/02/2024 2:00 PM CDT Appointment [facility] Respiratory Therapy 1 [place] [address] Werner Swift MD #2 [place] [address] Discharge Disposition: Discharged to home or Selfcare 10/09/2024 2:30 PM CDT Office Visit [facility] - Family Medicine [facility] #2 [place] [address] Liz Capellan, DO [address] [address] documented as of this encounter Goals Goal [...] Zones/Action plan education. I will notify my Viticulturist if my symptoms fall in the y [...] - 19 04/27/2024 04/27/2024 04/27/2024 2:19 PM BUTCHER ASSISTANT Assessment Noted Time PHQ-9 Depression Total Score: 1 03/07/20 21 10:29 AM CDT documented as of this encounter Care Teams Baked And Graphite Inspector Relationship Specialty Start Date End Date Keith Craft MD PCP - General Family Medicine 01/14/19 12/26/23 Liz Capellan DO [address] [address] PCP - General Family Medicine 12/27/23 Quang Locke DO Gastroenterology 01/18/16 [place] [address] [address] 05/25/21 Werner Swift MD #2 [place] [address] Consulting Physician Pulmonary Disease 01/30/22 documented as of this encounter
--- OUTSIDE RECORDS SUMMARY | 2024-07-10 13:43 | XMS_ITS | Encounter Summary ---
Author Organization [facility] Address [address] [place] [address] Phone Care Team Providers Care Maintenance Helper Name Role Phone Quang Locke Unavailable [phone] Keith Craft MD Primary Care Provider [phone] Bri Rollins RN Unavailable Unavailable Silvio Schulte MD Unavailable [phone] Bri Rollins RN Unavailable Unavailable Werner Swift MD Unavailable Liz Capellan DO Primary Care Provider [phone] Reason for Visit * Reason Comments Medication Refill Encounter Details Date Type Department Care Team (Late st Contact Info) Description 08/30/2022 Refill [facility] #2 [place] [address] Keith Craft MD #1 [place] [address] Medication Refill Social History Tobacco Use Types [...] Telephone Encounter - Gloria Cornejo RN - 08/30/2022 11:46 AM CDT Medication failed the protocol, provider to review and approve the medication order if appropriate. Requested Prescriptions Pending Prescriptions Disp Refills Trelegy Ellipta 100-62.5-25 MCG/ACT AEROSOL POWDER, BREATH ACTIVATED [Pharmacy Med Name: TRELEGY ELLIPTA 100MCG AERO POW BR ACT] 60 Each 2 Sig: TAKE ONE (1) PUFF BY INHALATION DAILY. Inhaled Combinations Protocol Passed - 08/30/2022 10:50 AM Passed - Visit with relevant provider in past 12 months or upcoming 90 days Recent Visits Date Type Provider Dept 07/18/22 Office Visit Kerri Kauffman, PRODUCTION SUPPORT DEVELOPER, FIELD SERVICE REP [facility] [place] 06/07/22 Office Visit Keith Craft MD [facility] [place] [place] 03/02/22 Procedure Visit [facility] DIABETIC RETINAL IMAGING [facility] [place] [facility] 03/02/22 Office Visit Keith Craft MD [facility] 11/03/21 Office Visit Keith [facility] MD [facility] [place] 10/19/21 Office Visit Keith Craft MD [facility] 10/05/21 Office Visit Keith Craft MD [facility] 09/08/21 Office Visit Brie Denis, [facility] recent visits within past 365 days and meeting all other requirements Future Appointments Date Type Provider Dept 09/10/22 Appointment Keith Craft MD [facility] Showing future appointments within next 90 days and meeting all other requirements Passed - Active short-acting beta agonist prescription ergocalciferol (VITAMIN D) [address]253 UNIT Capsule [Pharmacy Med Name: VITAMIN D [id number] CAPSULE] 12 Capsule 0 Sig: TAKE ONE CAPSULE BY MOUTH ONE TIME WEEKLY Vitamin Supplements (Adult) Protocol Failed - 08/30/2022 10:50 AM Failed - Vitamin D less than 1.25mg Passed - Visit with relevant provider in past 12 months or upcoming 90 days Recent Visits Date Type Provider Dept 07/18/22 Office Visit Kerri Kauffman, PRODUCTION SUPPORT DEVELOPER, FIELD SERVICE REP [facility] [place] [facility] 06/07/22 [facility] 03/[facility]22 Procedure Visit [facility] DIABETIC RETINAL IMAGING [facility] [place] [facility] 03/02/22 [facility]/03[facility]21 [facility] 10/19/21 Office Visit Keith Craft MD [facility] 10/05/21 Office Visit Keith Craft MD [facility] 09/08/21 Office Visit Brie Denis, NICOLE [facility] Showing recent visits within past 365 days and meeting all other requirements Future Appointments Date Type Provider Dept 09/10/22 Appointment eKith Craft MD [facility] Showing future appointments within next 90 days and meeting all other requirements amitriptyline (ELAVIL) 25 MG Tablet [Pharmacy Med Name: AMITRIPTYLINE HCL 25MG TABLET] 90 Tablet 0 Sig: TAKE ONE (1) TABLET BY MOUTH NIGHTLY. Not Delegated - Tricyclic Agents Protocol Failed - 08/30/2022 10:50 AM Failed - This refill cannot be delegated Passed - Visit with relevant provider in past 12 months or upcoming 90 days Recent Visits Date Type Provider Dept 07/18/22 Office Visit Kerri Kauffman, PRODUCTION SUPPORT DEVELOPER, FIELD SERVICE REP [facility] 06/07/22 Office Visit Keith [facility] [place] 03/02/22 Procedure Visit [facility] DIABETIC RETINAL IMAGING [facility] [place] 03/02/22 Office Visit Keith Craft MD [facility] 11/03/21 Office Visit Keith Craft MD [facility] 10/19/21 Office Visit Keith Craft MD [facility] [place] 10/05/21 Office Visit Keith Craft MD [facility] [place] 09/08/21 Office Visit Brie Denis, NICOLE [facility] [place] Showing recent visits within past 365 days and meeting all other requirements Future Appointments Date Type Provider Dept 09/10/22 Appointment Keith Craft MD [facility] [place] Showing future appointments within next 90 days and meeting all other requirements documented in this encounter Plan of Treatment Upcoming Encounters Date Type Department Care Team (Late st Contact Info) Description 07/13/2024 1:30 PM ELEVATOR ADJUSTER Office Visit [facility] Medical [facility] - Family Medicine - [place] #2 [place] [address] Liz Capellan, 2 [facility] [address] [place] [address] 07/20/2024 2:15 PM ELEVATOR ADJUSTER Office Visit [facility] - Endocrinology - [place] #[address] [facility] [place] [address] Ana Vivar, PRODUCTION SUPPORT DEVELOPER, FIELD SERVICE REP 2 [facility] [address] [place] [address] Yasmin Restrepo MD #[address] [place] [address] 07/31/2024 1:00 PM ELEVATOR ADJUSTER [facility] [address] [place] [address] Werner Swift MD #2 [place] [address] Discharge Disposition: Discharged to home or Selfcare 08/03/2024 1:15 PM CDT Office Visit [facility] - Pulmonology & Sleep Medicine [facility] #2 [place] [address] Werner Swift MD #2 [place] [address] 09/02/2024 2:00 PM CDT [facility] 1 [place] [address] Werner Swift MD #2 [place] [address] Discharge Disposition: Discharged to home or Selfcare 10/09/2024 2:30 PM CDT Office Visit [facility] - Family Medicine [facility] #2 [place] [address] Liz Capellan, DO [address] [address] documented as of this encounter Goals Goal Patient Goal Type Associated Problems Recent Progress Patient-Stated? Author Chronic Disease Management Chronic Disease Management On track(2022 10:36 AM CDT) Bri Turcios, RN Note: Goal: I will effectively manage my COPD at home, by following regimen prescribed by my doctor, minimizing hospitalizations in the next three months. Anticipated Completion Date:November 30,2023 Patient's Preferred Goal: Highest Priority Challenges/Barriers: Missing [...] Zones/Action plan education. I will notify my Precision Dancer if my symptoms fall in the y [...] 19 04/18/2023 04/18/2023 04/28/2023 12:1 6 AM ELEVATOR ADJUSTER COVID - 19 07/13/2023 07/13/2023 07/23/2023 12:1 6 AM ELEVATOR ADJUSTER Respiratory Rule Out - RPA 03/17/2024 03/17/2024 1 3:36 PM CDT COVID - 19 04/27/2024 04/27/2024 04/27/2024 2:19 PM ELEVATOR ADJUSTER Assessment Noted Time PHQ-9 Depression Total Score: 1 03/07/20 21 10:29 AM CDT documented as of this encounter Care Teams Maintenance Helper Relationship Specialty Start Date End Date Keith Craft MD PCP - General Family Medicine 01/14/19 12/26/23 Liz Capellan DO 2 [place] [address] PCP - General Family Medicine 12/27/23 Quang Locke DO Gastroenterology 01/18/16 Bri Rollins, [place] Precision Dancer 03/07/21 05/22/23 [place] [address] [address] 05/25/21 Bri Rollins RN [place] Nurse Precision Dancer 03/07/21 05/23/23 Werner Swift MD #2 [place] [address] Consulting Physician Pulmonary Disease 01/30/22 documented as of this encounter
--- OUTSIDE RECORDS SUMMARY | 2024-07-10 13:43 | XMS_ITS | Encounter Summary ---
Author Organization [facility] Address [address] [place] [address] Phone Care Team Providers Care Inspector Floor Sub Assembly Name Role Phone Quang Locke DO Unavailable [phone] Keith Craft MD Primary Care Provider [phone] Silvio Schulte MD Unavailable [phone] Werner Swift MD Unavailable Liz Capellan DO Primary Care Provider [phone] Reason for Visit * Reason Comments Medication Refill Encounter Details Date Type Department Care Team (Late st Contact Info) Description 10/10/2023 Refill [facility] #2 [place] [address] Keith Craft MD #1 [place] [address] Medication Refill Social History Tobacco Use Types Packs/Day Years Used Date Smoking Tobacco: Former Cigarettes 2 50 1 - 03/16/2018 Smokeless Tobacco: Never Comments:Still uses nictoine patches and gum Alcohol Use Standard Drinks/Week Comments No 0 (1 standard drink = 0.6 oz pur e alcohol) [facility] Utilities Answer Date Recorded In the [...] often do you attend chur ch or hoahaoism services? Never 07/13/2023 Do you belong to any clubs o r organizations such as religious groups, unions, fraternal or athletic groups, or [...] - Questions 1-9 0 /0 08/2021 [facility] [place] of Occupat ional Health - Occupational Stress [...] Telephone Encounter - Gloria Cornejo RN - 10/14/2023 4:51 PM CDT Images from the original note were not included. Name from pharmacy: OXYCODONE/ACETAMINOPHEN 5-325MG TABLET Will file in chart as: oxyCODONE-acetaminophen (PERCOCET) 5-325 MG Tablet The original prescription was reordered on 10/14/2023 by Keith Craft MD. * Telephone Encounter - Kelin Nance RN - 10/10/2023 12:28 PM CDT duplicate documented in this encounter Plan of Treatment Upcoming Encounters Date Type Department Care Team (Late st Contact Info) Description 07/13/2024 1:30 PM OIL AND GAS SPECIALIST Office Visit [facility] - Family Medicine - [place] #2 [place] [address] Liz Capellan L, DO 2 [facility] [address] [place] [address] 07/20/2024 2:15 PM OIL AND GAS SPECIALIST Office Visit [facility] Endocrinology - [place] #2 [place] [address] Ana Vivar, INVESTIGATIONS CHIEF, TREADLE CUT OFF SAW OPERATOR [address] [address] Yasmin Restrepo MD #[address] [address] 07/31/2024 1:00 PM OIL AND GAS SPECIALIST [facility] [address] [place] [address] Werner Swift MD #2 [place] [address] Discharge Disposition: Discharged to home or Selfcare 08/03/2024 1:15 PM CDT Office Visit [facility] - Pulmonology & Sleep Medicine [facility] #2 [place] [address] Werner Swift MD #2 [place] [address] 09/02/2024 2:00 PM CDT [facility] 1 [facility] [place] [address] Werner Swift MD #2 [facility] [address] Discharge Disposition: Discharged to home or Selfcare 10/09/2024 2:30 PM CDT Office Visit [facility] - Family Medicine - [place] #2 [place] [address] Liz Capellan, DO [address] [address] documented as of this encounter Goals Goal [...] Zones/Action plan education. I will notify my Hospice Case Manager if my symptoms fall in the [...] - 19 04/27/2024 04/27/2024 04/27/2024 2:19 PM OIL AND GAS SPECIALIST Assessment Noted Time PHQ-9 Depression Total Score: 1 03/07/20 21 10:29 AM CDT documented as of this encounter Care Teams Inspector Floor Sub Assembly Relationship Specialty Start Date End Date Keith Craft MD PCP - General Family Medicine 01/14/19 12/26/23 Liz Capellan DO [address] [address] PCP - General Family Medicine 12/27/23 Quang Locke DO Gastroenterology 01/18/16 [place] [address] [address] 05/25/21 Werner Swift MD #2 [place] [address] Consulting Physician Pulmonary Disease 01/30/22 documented as of this encounter
--- OUTSIDE RECORDS SUMMARY | 2024-07-10 13:43 | XMS_ITS | Encounter Summary ---
Author Organization [facility] Address [address] [place] [address] Phone Care Team Providers Care Signals Intelligence Analyst Name Role Phone Quang Locke DO Unavailable [phone] Keith Craft MD Primary Care Provider [phone] Silvio Schulte MD Unavailable [phone] Werner Swift MD Unavailable Liz Capellan DO Primary Care Provider [phone] Reason for Visit * Reason Comments Medication Refill Encounter Details Date Type Department Care Team (Late st Contact Info) Description 09/30/2023 [facility]ill [facility] #2 [place] [id number] Keith Craft MD #1 [place] [address] Medication Refill Social History Tobacco Use Types Packs/Day Years Used Date Smoking Tobacco: Former Cigarettes 2 50 1 - 03/16/2018 Smokeless Tobacco: Never Comments:Still uses nictoine patches and gum Alcohol Use Standard Drinks/Week Comments No 0 (1 standard drink = 0.6 oz pur e alcohol) [facility] Utilities Answer Date Recorded In the [...] often do you attend chur ch or rastafarian services? Never 07/13/2023 Do you belong to [...] Score - Questions 1-9 0 /0 08/2021 [facility] [place] of Occupat ional Health - Occupational Stress [...] Telephone Encounter - Gloria Cornejo RN - 09/30/2023 10:42 AM CDT Signed 6 days ago (09/24/2023): Trelegy Ellipta 100-62.5-25 MCG/ACT AEROSOL POWDER, BREATH ACTIVATED Sig: TAKE ONE (1) PUFF BY INHALATION DAILY. Disp: 60 Each Refills: 2 Signed by: Keith Craft MD documented in this encounter Plan of Treatment Upcoming Encounters Date Type Department Care Team (Late st Contact Info) Description 07/13/2024 1:30 PM GUN PERFORATOR Office Visit [facility] - Family Medicine - [place] #2 [facility] [place] [address] Liz Capellan, DO 2 [facility] [address] [place] [address] 07/20/2024 2:15 PM GUN PERFORATOR [facility] [place] #2 [place] [address] Ana Vivar, MILKING MACHINE TECHNICIAN, MARKET MANAGER 2 [facility] [address] [place] [address] Yasmin Restrepo MD #[address] [phone] 07/31/2024 1:00 PM GUN PERFORATOR [facility] [address] [place] [phone] Werner Swift MD #2 [place] [address] Discharge Disposition: Discharged to home or Selfcare 08/03/2024 1:15 PM CDT Office [facility] - Pulmonology & Sleep Medicine - [place] #2 [place] [address] Werner Swift MD #2 [place] [address] 09/02/2024 2:00 PM CDT [facility] Respiratory Therapy 1 [place] [phone] Werner Swift MD #[address] [place] [address] Discharge Disposition: Discharged to home or Selfcare 10/09/2024 2:30 PM CDT Office Visit [facility] - [facility] #[address] [place] [address] Liz Capellan, DO 2 [address] [place], [place] [place] [address] documented as of this encounter Goals Goal [...] Zones/Action plan education. I will notify my Telephone Cleaner if my symptoms fall in the y [...] - 19 04/27/2024 04/27/2024 04/27/2024 2:19 PM GUN PERFORATOR Assessment Noted Time PHQ-9 Depression Total Score: 1 03/07/20 21 10:29 AM CDT documented as of this encounter Care Teams Signals Intelligence Analyst Relationship Specialty Start Date End Date Keith Craft MD PCP - General Family Medicine 01/14/19 12/26/23 Liz Capellan DO [address] [id number] PCP - General Family Medicine 12/27/23 Quang Locke DO Gastroenterology 01/18/16 [place] [address] [address] 05/25/21 Werner Swift MD #2 [place] [address] Consulting Physician Pulmonary Disease 01/30/22 documented as of this encounter
--- OUTSIDE RECORDS SUMMARY | 2024-07-10 13:43 | XMS_ITS | Encounter Summary ---
Author Organization [facility] Address [address] [place] [address] Phone Care Team Providers Care Regional Merchandising Manager Name Role Phone Quang Locke Unavailable [phone] Keith Craft MD Primary Care Provider [phone] Bri Rollins RN Unavailable Unavailable Silivo Schulte MD Unavailable [phone] Bri Rollins RN Unavailable Unavailable Werner Swift MD Unavailable Liz Capellan DO Primary Care Provider [phone] Reason for Visit * Reason Comments Medication Refill Encounter Details Date Type Department Care Team (Late st Contact Info) Description 10/31/2021 Refill [facility] #2 [place] [address] Keith Craft MD #1 [place] [address] Medication Refill Social History Tobacco Use Types [...] Telephone Encounter - Camila Jon RN - 11/01/2021 9:16 AM CDT PDMP 10/04/21 Medication failed the protocol, provider to review and approve the medication order if appropriate. Requested Prescriptions Pending Prescriptions Disp Refills diazePAM (VALIUM) 5 MG Tablet [Pharmacy Med Name: DIAZEPAM 5MG TABLET] 30 Tablet 0 Sig: TAKE ONE (1) TABLET BY MOUTH DAILY NEEDED FOR ANXIETY. Not Delegated - Benzodiazepines Protocol Failed - 10/31/2021 12:29 PM Failed - This refill cannot be delegated Passed - Visit with relevant provider in past 12 months or upcoming 90 days Recent Visits Date Type Provider Dept 10/19/21 Office Visit Keith Craft MD [facility] 10/05/21 Office Visit Keith Craft MD [facility] 09/08/21 Office Visit Brie Denis, PAC [facility] [place] 08/14/21 Office Visit Keith Craft MD [facility] 07/31/21 Office Visit Keith Craft MD [facility] 05/25/21 Office Visit Marcin Anderson, REDUCTION FURNACE OPERATOR, TECHNICAL ADMINISTRATIVE ASSISTANT [facility] [place] 05/05/21 Office Visit Brie Denis, PAC [facility] [place] 04/14/21 Office Visit Keith Craft MD [facility] 03/23/21 Office Visit Keith Craft MD [facility] 02/07/21 Office Visit Keith Craft MD [facility] Showing recent visits within past 365 days and meeting all other requirements Future Appointments Date Type Provider Dept 11/03/21 Appointment Keith Craft MD [facility] 12/19/21 Appointment Keith Craft MD [facility] Showing future appointments within next 90 days and meeting all other requirements documented in this encounter Plan of Treatment Upcoming Encounters Date Type Department Care Team (Late st Contact Info) Description 07/13/2024 1:30 PM ASSISTANT READING TEACHER Office Visit [facility] Medical [facility] - Family Medicine - [place] #2 [place] [address] Liz Capellan, DO [address] [address] 07/20/2024 2:15 PM ASSISTANT READING TEACHER Office Visit [facility] - Endocrinology - [place] #2 [place] [address] Ana Vivar N, REDUCTION FURNACE OPERATOR, TECHNICAL ADMINISTRATIVE ASSISTANT [address] [address] Yasmin Restrepo MD #[address] [address] 07/31/2024 1:00 PM ASSISTANT READING TEACHER [facility] [address] [place] [address] Werner Swift MD #2 [place] [address] Discharge Disposition: Discharged to home or Selfcare 08/03/2024 1:15 PM CDT Office Visit [facility] - Pulmonology & Sleep Medicine [facility] #2 [place] [address] Werner Swift MD #2 [place] [address] 09/02/2024 2:00 PM CDT Appointment [facility] Respiratory Therapy 1 [place] [address] Werner Swift MD #2 [place] [address] Discharge Disposition: Discharged to home or Selfcare 10/09/2024 2:30 PM CDT Office Visit [facility] Family Medicine [facility] #2 [place] [address] Liz Capellan, DO [address] [address] documented as of this encounter Goals Goal [...] Zones/Action plan education. I will notify my Payroll Human Resources Assistant if my symptoms fall in the y [...] 04/20/2022 04/20/2022 04/30/2022 12:1 8 AM ASSISTANT READING TEACHER COVID - 19 07/18/2022 07/18/2022 07/28/2022 12:1 6 AM ASSISTANT READING TEACHER COVID - 19 08/21/2022 08/21/2022 08/22/2022 8:31 AM CDT Respiratory Rule Out - RPA 08/21/2022 08/21/2022 0 08/22/2022 3:21 PM CDT COVID - 19 04/18/2023 04/18/2023 04/28/2023 12:1 6 AM ASSISTANT READING TEACHER COVID - 19 07/13/2023 07/13/2023 07/23/2023 12:1 6 AM ASSISTANT READING TEACHER Respiratory Rule Out - RPA 03/17/2024 03/17/2024 1 3:36 PM CDT COVID - 19 04/27/2024 04/27/2024 04/27/2024 2:19 PM ASSISTANT READING TEACHER Assessment Noted Time PHQ-9 Depression Total Score: 1 03/07/20 21 10:29 AM CDT documented as of this encounter Care Teams Regional Merchandising Manager Relationship Specialty Start Date End Date Keith Craft MD PCP - General Family Medicine 01/14/19 12/26/23 Liz Capellan DO [address] [facility] [facility]. [address] [place] [address] PCP - General Family Medicine 12/27/23 Quang Locke DO Gastroenterology 01/18/16 Bri Rollins, KATEY [place] Payroll Human Resources Assistant 03/07/21 05/22/23 [place] [address] [address] 05/25/21 Bri Rollins RN [place] Nurse Payroll Human Resources Assistant 03/07/21 05/23/23 Werner Swift MD #2 [place] [phone] Consulting Physician Pulmonary Disease 01/30/22 documented as of this encounter
--- OUTSIDE RECORDS SUMMARY | 2024-07-10 13:43 | XMS_ITS | Encounter Summary ---
Author Organization [facility] Address [address] [place] [address] Phone Care Team Providers Care Spin Table Operator Name Role Phone Quang Locke Unavailable [phone] Keith Craft MD Primary Care Provider [phone] Bri Rollins RN Unavailable Unavailable Silvio Schulte MD Unavailable [phone] Bri Rollins RN Unavailable Unavailable Werner Swift MD Unavailable Liz Capellan DO Primary Care Provider [phone] Reason for Visit * Reason Comments Medication Refill Encounter Details Date Type Department Care Team (Late st Contact Info) Description 09/04/2022 Refill [facility] #2 [place] [address] Keith Craft MD #1 [place] [address] Medication Refill Social History Tobacco Use Types [...] suspected to have Coronavirus/COVID-19? No / Unsure 09/07/2022 10:49 AM CDT documented as of this encounter Miscellaneous Notes * Telephone Encounter - Linda Abel RN - 09/05/2022 4:37 PM CDT Pharmacy calling to follow up on refill request. * Telephone Encounter - Georgia Roblero RN - 09/04/2022 12:07 PM CDT Medication failed the protocol, provider to review and approve the medication order if appropriate. Requested Prescriptions Pending Prescriptions Disp Refills Daliresp 500 MCG Tablet [Pharmacy Med Name: DALIRESP 500MCG TABLET] 90 Tablet 3 Sig: TAKE ONE (1) TABLET BY MOUTH DAILY. Not Delegated - Off Protocol Failed - 09/04/2022 12:04 PM Failed - This refill cannot be delegated Passed - Visit with relevant provider in past 12 months or upcoming 90 days Recent Visits Date Type Provider Dept 07/18/22 Office Visit Kerri Kauffman, BAND SPLITTER, SEED EXPERT [facility] 06/07/22 Office Visit Keith Craft MD [facility] 03/02/22 Procedure Visit [facility] 03/02/22 Office Visit Keith Craft MD [facility] 11/03/21 Office Visit Keith Craft MD [facility] 10/19/21 Office Visit Keith Craft MD [facility] 10/05/21 Office Visit Keith Craft MD [facility] 09/08/21 Office Visit Brie Denis PAC [facility] Showing recent visits within past 365 days and meeting all other requirements Future Appointments Date Type Provider Dept 09/10/22 Appointment Keith Craft MD [facility] Showing future appointments within next 90 days and meeting all other requirements documented in this encounter Plan of Treatment Upcoming Encounters Date Type Department Care Team (Late st Contact Info) Description 07/13/2024 1:30 PM GENERAL INTERNAL MEDICINE DOCTOR Office Visit [facility] - Family Medicine - [place] #2 [place] [address] Liz Capellan, DO [address] [address] 07/20/2024 2:15 PM GENERAL INTERNAL MEDICINE DOCTOR Office Visit [facility] - Endocrinology - [place] #2 [place] [address] Ana Vivar, BAND SPLITTER, SEED EXPERT [address] [address] Yasmin Restrepo MD #[address] [place] [address] 07/31/2024 1:00 PM GENERAL INTERNAL MEDICINE DOCTOR [facility] [address] [place] [address] Werner Swift MD #2 [place] [address] Discharge Disposition: Discharged to home or Selfcare 08/03/2024 1:15 PM CDT Office Visit [facility] - Pulmonology & Sleep Medicine [facility] #2 [place] [address] Werner Swift MD #2 [place] [address] 09/02/2024 2:00 PM CDT Appointment [facility] Respiratory Therapy 1 [place] [address] Werner Swift MD #2 [place] [address] Discharge Disposition: Discharged to home or Selfcare 10/09/2024 2:30 PM CDT Office Visit [facility] Family Medicine [facility] #2 [place] [address] Liz Capellan, DO [address] [address] documented as of this encounter Goals Goal [...] Zones/Action plan education. I will notify my Atmospheric Sciences Professor if my symptoms fall in the y [...] 19 04/18/2023 04/18/2023 04/28/2023 12:1 6 AM GENERAL INTERNAL MEDICINE DOCTOR COVID - 19 07/13/2023 07/13/2023 07/23/2023 12:1 6 AM GENERAL INTERNAL MEDICINE DOCTOR Respiratory Rule Out - RPA 03/17/2024 03/17/2024 1 3:36 PM CDT COVID - 19 04/27/2024 04/27/2024 04/27/2024 2:19 PM GENERAL INTERNAL MEDICINE DOCTOR Assessment Noted Time PHQ-9 Depression Total Score: 1 03/07/20 21 10:29 AM CDT documented as of this encounter Care Teams Spin Table Operator Relationship Specialty Start Date End Date Keith Craft MD PCP - General Family Medicine 01/14/19 12/26/23 Liz Capellan DO 2 [facility] [address] [address] PCP - General Family Medicine 12/27/23 Quang Locke DO Gastroenterology 01/18/16 Bri Rollins, KATEY [place] Atmospheric Sciences Professor 03/07/21 05/22/23 [place] [id number] [address] 05/25/21 Bri Rollins RN [place] Nurse Atmospheric Sciences Professor 03/07/21 05/23/23 Werner Swift MD #2 [place] [address] Consulting Physician Pulmonary Disease 01/30/22 documented as of this encounter
--- OUTSIDE RECORDS SUMMARY | 2024-07-10 13:43 | XMS_ITS | Encounter Summary ---
Author Organization [facility] Address [address] [place] [address] Phone Care Team Providers Care Chemistry Technical Officer Name Role Phone Quang Locke Unavailable [phone] Keith Craft MD Primary Care Provider [phone] Bri Rollins RN Unavailable Unavailable Silvio Schulte MD Unavailable [phone] Bri Rollins RN Unavailable Unavailable Werner Swift MD Unavailable Liz Capellan DO Primary Care Provider [phone] Reason for Visit * Reason Comments Medication Refill Encounter Details Date Type Department Care Team (Late st Contact Info) Description 10/16/2021 Refill [facility] Family Medicine [facility] #2 [place] [address] Keith Craft MD #1 [place] [address] Medication Refill Social History Tobacco Use Types [...] suspected to have Coronavirus/COVID-19? No / Unsure 10/19/2021 4:58 PM CDT documented as of this encounter Miscellaneous Notes * Telephone Encounter - Gloria Cornejo RN - 10/17/2021 12:08 PM CDT Medication failed the protocol, provider to review and approve the medication order if appropriate. Requested Prescriptions Pending Prescriptions Disp Refills SUMAtriptan (IMITREX) 100 MG Tablet [Pharmacy Med Name: SUMATRIPTAN SUCCINATE 100MG TABLET] 9 Tablet 3 Sig: DIRECTED BY PHYSICIAN MAY REPEAT DOSE IF HEADACHE RECURS Not Delegated - Serotonin Agonists (Oral and Nasal) Protocol Failed - 10/16/2021 10:23 AM Failed - This refill cannot be delegated; check utilization no more than 9 doses per month Passed - Visit with relevant provider in past 24 months or upcoming 90 days Recent Visits Date Type Provider Dept 10/05/21 Office Visit Keith Craft MD [facility] 09/08/21 Office [facility] Denis, [facility] 08/14/21 Office Visit Keith Craft MD [facility] 07/31/21 Office Visit Keith Craft MD [facility] 05/25/21 Office Visit Marcin Anderson APRN, ORDER TAKER [facility] 05/05/21 Office Visit Brie Denis, PAC [facility] [place] 04/14/21 Office Visit Keith [facility] [place] 03/23/21 [facility] 02/03/21 Office [facility] Show[facility] recent visits within past 730 days and meeting all other requirements Future Appointments Date Type Provider Dept 10/24/21 Appointment [facility] 11/03/21 Appointment Keith Craft MD [facility] 12/19/21 Appointment [facility] Showing future appointments within next 90 days and meeting all other requirements Passed - No documented Systolic BP > 200 within past 3 months Passed - Number of active Serotonergic medications less than 3 documented in this encounter Plan of Treatment Upcoming Encounters Date Type Department Care Team (Late st Contact Info) Description 07/13/2024 1:30 PM INSPECTOR MECHANICAL Office Visit [facility] - Family Medicine - [place] #2 [place] [address] Liz Capellan L, DO [address] [address] 07/20/2024 2:15 PM INSPECTOR MECHANICAL Office Visit [facility] - Endocrinology - [place] #2 [place] [address] Ana Vivar, MUSCULOSKELETAL PHYSICIAN, ORDER TAKER 2 [facility] [address] [place] [address] Yasmin Restrepo MD #[address] [address] 07/31/2024 1:00 PM INSPECTOR MECHANICAL [facility] [address] [place] [address] Werner Swift MD #2 [place] [address] Discharge Disposition: Discharged to home or Selfcare 08/03/2024 1:15 PM CDT Office Visit [facility] - Pulmonology & Sleep Medicine [facility] #2 [place] [address] Werner Swift MD #2 [place] [address] 09/02/2024 2:00 PM CDT Appointment [facility] Respiratory Therapy 1 [place] [address] Werner Swift MD #2 [place] [address] Discharge Disposition: Discharged to home or Selfcare 10/09/2024 2:30 PM CDT Office Visit [facility] Family Medicine [facility] #2 [place] [address] Liz Capellan, DO [address] [address] documented as of this encounter Goals Goal [...] Zones/Action plan education. I will notify my Controller Repairer And Tester if my symptoms fall in the y [...] Last Indicated Resolved Time COVID - 19 10/19/2021 10/19/2021 10/20/2021 7:45 AM CDT Respiratory Rule Out - RPA 10/19/2021 10/19/2021 0 10/20/2021 2:10 PM CDT Stenotrophomonas maltophilia Comment:Must have a follow up respiratory sample to remove isolation flag. 10/20/2021 10/20/2021 COVID - 19 04/20/2022 04/20/2022 04/30/2022 12:1 8 AM INSPECTOR MECHANICAL COVID - 19 07/18/2022 07/18/2022 07/28/2022 12:1 6 AM INSPECTOR MECHANICAL COVID - 19 08/21/2022 08/21/2022 08/22/2022 8:31 AM CDT Respiratory Rule Out - RPA 08/21/2022 08/21/2022 0 08/22/2022 3:21 PM CDT COVID - 19 04/18/2023 04/18/2023 04/28/2023 12:1 6 AM INSPECTOR MECHANICAL COVID - 19 07/13/2023 07/13/2023 07/23/2023 12:1 6 AM INSPECTOR MECHANICAL Respiratory Rule Out - RPA 03/17/2024 03/17/2024 1 3:36 PM CDT COVID - 04/27/2024 04/27/2024 04/27/2024 2:19 PM INSPECTOR MECHANICAL Assessment Noted Time PHQ-9 Depression Total Score: 1 03/07/20 21 10:29 AM CDT documented as of this encounter Care Teams Chemistry Technical Officer Relationship Specialty Start Date End Date Keith Craft MD PCP - General Family Medicine 01/14/19 12/26/23 Liz Capellan DO [address] [address] PCP - General Family Medicine 12/27/23 Quang Locke DO Gastroenterology 01/18/16 Bri Rollins RN [place] Controller Repairer And Tester 03/07/21 05/22/23 [place] [id number] [address] 05/25/21 Bri Rollins RN [place] Nurse Controller Repairer And Tester 03/07/21 05/23/23 Werner Swift MD #2 [place] [address] Consulting Physician Pulmonary Disease 01/30/22 documented as of this encounter
--- OUTSIDE RECORDS SUMMARY | 2024-07-10 13:43 | XMS_ITS | Encounter Summary ---
Author Organization [facility] Address [address] [place] [address] Phone Care Team Providers Care Tinner Helper Name Role Phone Quang Locke Unavailable [phone] Keith Craft MD Primary Care Provider [phone] Bri Rollins RN Unavailable Unavailable Silvio Schulte MD Unavailable [phone] Bri Rollins RN Unavailable Unavailable Werner Swift MD Unavailable Liz Capellan DO Primary Care Provider [phone] Reason for Visit * Reason Comments Medication Refill Encounter Details Date Type Department Care Team (Late st Contact Info) Description 06/29/2021 [facility]ill [facility] [address] [place] [address] Keith Craft MD #1 [place] [address] Medication Refill Social History Tobacco Use Types [...] Telephone Encounter - Lillian Steiner RN - 06/29/2021 10:58 AM RATE ENGINEER Medication failed the protocol, provider to review and approve the medication order if appropriate. Requested Prescriptions Pending Prescriptions Disp Refills Ventolin HFA 108 (90 Base) MCG/ACT Aerosol Solution [Pharmacy Med Name: VENTOLIN HFA 90 MCG [id number] (90 BAS Aerosol] 18 g 1 Sig: USE 2 PUFF(S) BY INHALATION ROUTE EVERY 4 HOURS NEEDED WHEEZING Short Acting Inhaled Beta-Agonists Protocol Passed - 06/29/2021 10:56 AM Passed - Visit with relevant provider in past 12 months or upcoming 90 days Recent Visits Date Type Provider Dept 05/25/21 Office Visit Marcin Anderson APRN, HEEL BOOM OPERATOR [facility] [place] 05/05/21 Office Visit Brie Denis, PAC [facility] [place] 04/14/21 Office Visit Keith Craft MD [facility] 03/23/21 Office Visit Keith Craft MD [facility] 02/07/21 Office Visit Keith Craft MD [facility] 02/03/21 Office Visit Brie Denis, PAC [facility] [place] 01/12/21 Office Visit Keith Craft MD [facility] 10/12/20 Office Visit Keith Craft MD [facility] 10/04/20 Office Visit Keith Craft MD [facility] [place] Showing recent visits within past 365 days and meeting all other requirements Future Appointments Date Type Provider Dept 08/14/21 Appointment Keith Craft MD [facility] Showing future appointments within next 90 days and meeting all other requirements SUMAtriptan (IMITREX) 100 MG Tablet [Pharmacy Med Name: SUMATRIPTAN SUCC 100 MG TAB 100 Tablet] 9 Tablet 3 Sig: DIRECTED BY PHYSICIAN MAY REPEAT DOSE IF HEADACHE RECURS Not Delegated - Serotonin Agonists (Oral and Nasal) Protocol Failed - 06/29/2021 10:56 AM Failed - This refill cannot be delegated; check utilization no more than 9 doses per month Passed - Visit with relevant provider in past 24 months or upcoming 90 days Recent Visits Date Type Provider Dept 05/25/21 Office Visit Marcin Anderson APRN, HEEL BOOM OPERATOR [facility] [place] 05/05/21 Office Visit Brie Denis, PAC [facility] [place] 04/14/21 Office Visit Kieth Craft MD [facility] 03/23/21 Office Visit Keith Craft, MD [facility] 02/07/21 Office Visit Keith Craft, MD [facility] 02/03/21 Office Visit Brie Denis, PAC [facility] [place] 01/12/21 Office Visit Keith Craft, MD [facility] 10/12/20 Office Visit Keith Craft MD [facility] 10/04/20 Office Visit Keith Craft MD [facility] 06/07/20 Office Visit Keith Craft, MD [facility] Showing recent visits within past 730 days and meeting all other requirements Future Appointments Date Type Provider Dept 08/14/21 Appointment Keith Craft MD [facility] Showing future appointments within next 90 days and meeting all other requirements Passed - No documented Systolic BP > 200 within past 3 months Passed - Number of active Serotonergic medications less than 3 amitriptyline (ELAVIL) 25 MG Tablet [Pharmacy Med Name: AMITRIPTYLINE HCL 25 MG TAB 25 Tablet] 90 Tablet 0 Sig: TAKE ONE TABLET BY MOUTH AT NIGHT Not Delegated - Tricyclic Agents Protocol Failed - 06/29/2021 10:56 AM Failed - This refill cannot be delegated Passed - Visit with relevant provider in past 12 months or upcoming 90 days Recent Visits Date Type Provider Dept 05/25/21 Office Visit Marcin Anderson, ELECTRICAL ELECTRONICS ENGINEER, HEEL BOOM OPERATOR [facility] 05/05/21 Office Visit AnaliaBrie bryant, PAC [facility] 04/14/21 Office Visit Keith Craft, [facility] 03/23/21 Office Visit Keith Craft, [facility] [place] 02/07/21 Office Visit Keith Craft, [facility] 02/03/21 Office Visit Brie Denis, PAC [facility] 01/12/21 Office Visit Keith Craft, [facility] [place] 10/12/20 Office Visit Keith Craft, [facility] 10/04/20 Office Visit Keith Craft, [facility] [place] Showing recent visits within past 365 days and meeting all other requirements Future Appointments Date Type Provider Dept 08/14/21 Appointment Keith Craft, [facility] Showing future appointments within next 90 days and meeting all other requirements ENGINEER documented in this encounter Plan of Treatment Upcoming Encounters Date Type Department Care Team (Late st Contact Info) Description 07/13/2024 1:30 PM RATE ENGINEER Office Visit [facility] - Family Medicine - [place] [address] [place] [address] Liz Capellan, 2 [facility] [address] [place] [address] 07/20/2024 2:15 PM RATE ENGINEER Office Visit [facility] - Endocrinology - [place] [address]2 [place] [address] Ana Vivar, ELECTRICAL ELECTRONICS ENGINEER, HEEL BOOM OPERATOR 2 [facility] [address] [place] [address] Yasmin Restrepo MD #[address] [address] 07/31/2024 1:00 PM RATE ENGINEER [facility] [address] [place] [address] Werner Swift MD #2 [place] [address] Discharge Disposition: Discharged to home or Selfcare 08/03/2024 1:15 PM CDT Office Visit [facility] - Pulmonology & Sleep [facility] [place] [address] Werner Swift MD #2 [place] [address] 09/02/2024 2:00 PM CDT [facility] [address] [place] [address] Werner Swift MD #2 [place] [address] Discharge Disposition: Discharged to home or Selfcare 10/09/2024 2:30 PM CDT [facility] [address] [place] [address] Liz Capellan, DO [address] [address] documented as of this encounter Goals Goal [...] Zones/Action plan education. I will notify my Booster Station Operator if my symptoms fall in the [...] - 19 07/23/2021 07/23/2021 07/24/2021 6:31 AM RATE ENGINEER COVID - 19 10/19/2021 10/19/2021 10/20/2021 7:45 AM CDT Respiratory Rule Out - RPA 10/19/2021 10/19/2021 0 10/20/2021 2:10 PM CDT Stenotrophomonas maltophilia Comment:Must have a follow up respiratory sample to remove isolation flag. 10/20/2021 10/20/2021 COVID - 19 04/20/2022 04/20/2022 04/30/2022 12:1 8 AM RATE ENGINEER COVID - 19 07/18/2022 07/18/2022 07/28/2022 12:1 6 AM RATE ENGINEER COVID - 19 08/21/2022 08/21/2022 08/22/2022 8:31 AM CDT Respiratory Rule Out - RPA 08/21/2022 08/21/2022 0 08/22/2022 3:21 PM CDT COVID - 19 04/18/2023 04/18/2023 04/28/2023 12:1 6 AM RATE ENGINEER COVID - 19 07/13/2023 07/13/2023 07/23/2023 12:1 6 AM RATE ENGINEER Respiratory Rule Out - RPA 03/17/2024 03/17/2024 1 3:36 PM CDT COVID - 19 04/27/2024 04/27/2024 04/27/2024 2:19 PM RATE ENGINEER Assessment Noted Time PHQ-9 Depression Total Score: 1 03/07/20 10:29 AM CDT documented as of this encounter Care Teams Tinner Helper Relationship Specialty Start Date End Date Keith Craft MD PCP - General Family Medicine 01/14/19 12/26/23 Liz Capellan DO [address] [address] PCP - General Family Medicine 12/27/23 Quang Locke DO Gastroenterology 01/18/16 Bri Rollins RN [place] Booster Station Operator 03/07/21 05/22/23 [place] [id number] [address] 05/25/21 Bri Rollins RN [place] Nurse Booster Station Operator 03/07/21 05/23/23 Werner Swift MD #2 [place] [address] Consulting Physician Pulmonary Disease 01/30/22 documented as of this encounter
--- OUTSIDE RECORDS SUMMARY | 2024-07-10 13:43 | XMS_ITS | Encounter Summary ---
Author Organization [facility] Address [address] [place] [address] Phone Care Team Providers Care Communications Maintainer Name Role Phone Quang Locke DO Unavailable [phone] Keith Craft MD Primary Care Provider [phone] Silvio Schulte MD Unavailable [phone] Werner Swift MD Unavailable Liz Capellan DO Primary Care Provider [phone] Reason for Visit * Reason Comments Medication Refill Encounter Details Date Type Department Care Team (Late st Contact Info) Description 09/30/2023 Refill [facility] - Family Medicine [facility] #2 [place] [phone] Keith Craft MD #1 [place] [address] Medication Refill Social History Tobacco Use Types [...] often do you attend chur ch or presybeterian services? Never 07/13/2023 Do you belong to any clubs o r organizations such as restorationism groups, unions, fraternal or athletic groups, or [...] Score - Questions 1-9 0 /0 08/2021 [facility] of Occupat ional Health - Occupational Stress [...] Telephone Encounter - Gloria Cornejo RN - 10/01/2023 8:55 AM CDT PDMP Diazepam 09/09/23 Medication failed the protocol, provider to review and approve the medication order if appropriate. Requested Prescriptions Pending Prescriptions Disp Refills Daliresp 500 MCG Tablet [Pharmacy Med Name: DALIRESP 500MCG TABLET] 90 Tablet 3 Sig: TAKE ONE (1) TABLET BY MOUTH DAILY. Not Delegated - Off Protocol Failed - 09/30/2023 4:16 PM Failed - This refill cannot be [...] TABLET BY MOUTH DAILY NEEDED FOR ANXIETY 4.15 Not Delegated - Benzodiazepines Protocol Failed - 09/30/2023 4:16 PM Failed - This refill cannot be [...] st Contact Info) Description 07/13/2024 1:30 PM BUSINESS INTELLIGENCE ETL DEVELOPER Office Visit [facility] - Family Medicine - [place] [address] [place] [address] Liz Capellan, DO 2 [facility] [place] [address] [address] 07/20/2024 2:15 PM BUSINESS INTELLIGENCE ETL DEVELOPER Office Visit [facility] Medical [facility] - Endocrinology [facility] #2 [place] [address] Ana Vivar, CIVIL MANAGER, VIDEO GAME ANIMATOR 2 [facility]. [address] [place] [address] Yasmin Restrepo MD #2 [facility] [address] [place] [address] 07/31/2024 1:00 PM BUSINESS INTELLIGENCE ETL DEVELOPER [facility] [address] [place] [address] Werner Swift MD #2 [place] [address] Discharge Disposition: Discharged to home or Selfcare 08/03/2024 1:15 PM CDT Office Visit [facility] - Pulmonology & Sleep Medicine [facility] #2 [place] [address] Werner Swift MD #2 [place] [address] 09/02/2024 2:00 PM CDT [facility] [address] [place] [address] Werner Swift MD #2 [place] [address] Discharge Disposition: Discharged to home or Selfcare 10/09/2024 2:30 PM CDT Office [facility] - Family Medicine [facility] #2 [place] [address] Liz Capellan, DO 2 [facility] [place] [address] documented as of this encounter Goals Goal [...] Zones/Action plan education. I will notify my Arts Education Teacher if my symptoms fall in the [...] - 19 04/27/2024 04/27/2024 04/27/2024 2:19 PM BUSINESS INTELLIGENCE ETL DEVELOPER Assessment Noted Time PHQ-9 Depression Total Score: 1 03/07/20 21 10:29 AM CDT documented as of this encounter Care Teams Communications Maintainer Relationship Specialty Start Date End Date Ketih Craft MD PCP - General Family Medicine 01/14/19 12/26/23 Liz Capellan DO [address] [id number] PCP - General Family Medicine 12/27/23 Quang Locke DO Gastroenterology 01/18/16 [place] [address] [address] 05/25/21 Werner Swift MD #2 [place] [address] Consulting Physician Pulmonary Disease 01/30/22 documented as of this encounter
--- OUTSIDE RECORDS SUMMARY | 2024-07-10 13:43 | XMS_ITS | Encounter Summary ---
Author Organization [facility] Address [address] [place] [address] Phone Care Team Providers Care Ship Boss Name Role Phone Quang Locke Unavailable [phone] Keith Craft MD Primary Care Provider [phone] Bri Rollins RN Unavailable Unavailable Silvio Schulte MD Unavailable [phone] Bri Rollins RN Unavailable Unavailable Werner Swift MD Unavailable Liz Capellan DO Primary Care Provider [phone] Reason for Visit * Reason Comments Medication Refill Encounter Details Date Type Department Care Team (Late st Contact Info) Description 09/30/2021 Refill [facility] - Family Medicine [facility] #2 [place] [address] Keith Craft MD #1 [place] [address] Medication Refill Social History Tobacco Use Types [...] suspected to have Coronavirus/COVID-19? No / Unsure 09/21/2021 12:39 PM CDT documented as of this encounter Miscellaneous Notes * Telephone Encounter - Gloria Cornejo RN - 10/02/2021 10:54 AM CDT PDMP 09/04/21 Medication failed the protocol, provider to review and approve the medication order if appropriate. Requested Prescriptions Pending Prescriptions Disp Refills diazePAM (VALIUM) 5 MG Tablet [Pharmacy Med Name: DIAZEPAM 5MG TABLET] 30 Tablet 0 Sig: TAKE ONE (1) TABLET BY MOUTH DAILY NEEDED FOR ANXIETY. Not Delegated - Benzodiazepines Protocol Failed - 09/30/2021 12:09 PM Failed - This refill cannot be delegated Passed - Visit with relevant provider in past 12 months or upcoming 90 days Recent Visits Date Type Provider Dept 09/08/21 Office Visit Brie Denis, PAC [facility] [place] 08/14/21 Office Visit Keith Craft MD [facility] 07/31/21 Office Visit Keith Craft MD [facility] 05/25/21 Office Visit Marcin Anderson APRN, JAKOB [facility] [place] 05/05/21 Office Visit Brie Denis, PAC [facility] [place] 04/14/21 Office Visit Keith Craft MD [facility] 03/23/21 Office Visit Keith Craft MD [facility] 02/07/21 [facility] Office Visit Keith Craft MD [facility] [place] Showing recent visits within past 365 days and meeting all other requirements Future Appointments Date Type Provider Dept 10/05/21 Appointment Keith Craft MD [facility] 12/19/21 Appointment Keith Craft MD [facility] [place] Showing future appointments within next 90 days and meeting all other requirements documented in this encounter Plan of Treatment Upcoming Encounters Date Type Department Care Team (Late st Contact Info) Description 07/13/2024 1:30 PM MEDICARE SALES EXECUTIVE Office Visit [facility] Medical [facility] - Family Medicine - [place] [address] [place] [address] Liz Capellan, DO [address] [address] 07/20/2024 2:15 PM MEDICARE SALES EXECUTIVE Office Visit [facility] - Endocrinology - [place] [address]2 [place] [address] Ana Vivar, CONTINUOUS PROCESS MACHINE OPERATOR, MATERIAL CONTROL CLERK [address] [address] Yasmin Restrepo MD #[address] [address] 07/31/2024 1:00 PM MEDICARE SALES EXECUTIVE [facility] [address] [place] [address] Werner Swift MD #2 [place] [address] Discharge Disposition: Discharged to home or Selfcare 08/03/2024 1:15 PM CDT Office Visit [facility] - Pulmonology & Sleep Medicine [facility] #2 [place] [address] Werner Swift MD #2 [place] [address] 09/02/2024 2:00 PM CDT Appointment [facility] Respiratory Therapy 1 [place] [address] Werner Swift MD #2 [place] [address] Discharge Disposition: Discharged to home or Selfcare 10/09/2024 2:30 PM CDT Office Visit [facility] Family Medicine [facility] #2 [place] [address] Lzi Capellan, DO [address] [address] documented as of this encounter Goals Goal [...] Zones/Action plan education. I will notify my Chief Projectionist if my symptoms fall in the y [...] 19 04/20/2022 04/20/2022 04/30/2022 12:1 8 AM MEDICARE SALES EXECUTIVE COVID - 19 07/18/2022 07/18/2022 07/28/2022 12:1 6 AM MEDICARE SALES EXECUTIVE COVID - 19 08/21/2022 08/21/2022 08/22/2022 8:31 AM CDT Respiratory Rule Out - RPA 08/21/2022 08/21/2022 0 08/22/2022 3:21 PM CDT COVID - 19 04/18/2023 04/18/2023 04/28/2023 12:1 6 AM MEDICARE SALES EXECUTIVE COVID - 19 07/13/2023 07/13/2023 07/23/2023 12:1 6 AM MEDICARE SALES EXECUTIVE Respiratory Rule Out - RPA 03/17/2024 03/17/2024 1 3:36 PM CDT COVID - 19 04/27/2024 04/27/2024 04/27/2024 2:19 PM MEDICARE SALES EXECUTIVE Assessment Noted Time PHQ-9 Depression Total Score: 1 03/07/20 21 10:29 AM CDT documented as of this encounter Care Teams Ship Boss Relationship Specialty Start Date End Date Keith Craft MD PCP - General Family Medicine 01/14/19 12/26/23 Liz Capellan DO [address] [address] PCP - General Family Medicine 12/27/23 Quang Locke DO Gastroenterology 01/18/16 Bri Rollins, RN [place] Chief Projectionist 03/07/21 05/22/23 [place] [address] [address] 05/25/21 Bri Rollins, RN [place] Nurse Chief Projectionist 03/07/21 05/23/23 Werner Swift MD #2 [place] [address] Consulting Physician Pulmonary Disease 01/30/22 documented as of this encounter
--- OUTSIDE RECORDS SUMMARY | 2024-07-10 13:43 | XMS_ITS | Encounter Summary ---
Author Organization [facility] Address [address] [place] [address] Phone Care Team Providers Care Bobcat Operator Name Role Phone Quang Locke DO Unavailable [phone] Keith Craft MD Primary Care Provider [phone] Silvio Schulte MD Unavailable [phone] Werner Swift MD Unavailable Liz Capellan DO Primary Care Provider [phone] Reason for Visit * Reason Onset Date Comments Cough 09/23/2023 Encounter Details Date Type Department Care Team (Late st Contact Info) Description 09/23/[address] [facility] - Family [facility] [address] [place] [address] Keith Craft MD #1 [place] [address] Cough Social History Tobacco Use Types Packs/Day Years Used Date Smoking Tobacco: Former Cigarettes 2 50 1 - 03/16/2018 Smokeless Tobacco: Never Comments:Still uses nictoine patches and gum Alcohol Use Standard Drinks/Week Comments No 0 (1 standard drink = 0.6 oz pur e alcohol) [facility] Utilities Answer Date Recorded In [...] often do you attend chur ch or church services? Never 07/13/2023 Do you belong to any clubs o r organizations such as religion groups, unions, fraternal or athletic groups, or [...] Total Score - Questions 1-9 0 08/2021 [facility] [place] of Occupat ional Health - Occupational Stress [...] in a custodial (including now)? No 07/13/2023 Education Answer Date [...] encounter Miscellaneous Notes * Telephone Encounter - Keith Craft MD - 09/27/2023 10:01 AM CDT I sent this in for her. * Telephone Encounter - William Tapia RN - 09/26/2023 8:34 AM CDT Situation: patient is calling to see if pcp will order script Background: See notes below Assessment: Patient is unable to come in for appointment and is requesting antibiotic and steroid Patient is the same as yesterday not worse or better Recommendation: Patient is requesting phone call or Maginaticshart message regarding if medication is sent to pharmacy or if there is any other recommendations - advised patient there is always prompt care can go to if needed. Patient verbalized understanding -pharmacy verified * Telephone Encounter - Muna Coe RN - 09/25/2023 8:24 AM CDT SITUATION: Cough BACKGROUND: Symptoms started a few days ago ASSESSMENT: Symptom Description / Location: Cough-productive white sputum Chest congestion Wheezing Shortness of breath-sometimes worse than normal Chest burning intermittently Clear Nasal Drainage SPO2- 95% on 09/24/23 Denies N/V/Diarrhea Pain (0-10): Temp: Denies fever Treatment / Response: Mucinex RECOMMENDATION: See care advice and disposition for Guideline Patient unable to come in today for an appointment as patient has an appointment for physical therapy today. Patient is asking provider for a steroid and an antibiotic to be prescribed. Please advise. First positive answer recorded, all responses to prior questions were negative. If symptoms increase, change or if new symptoms develop, call your HCP or call back. Recommendations were based on caller information and is not a diagnosis. Verified and reviewed all triage information with caller. Reason for Disposition MILD difficulty breathing (e.g., minimal/no SOB at rest, SOB with walking, pulse <100) and stillpresent when not coughing Protocols used: Cough-A-OH documented in this encounter Plan of Treatment Upcoming Encounters Date Type Department Care Team (Late st Contact Info) Description 07/13/2024 1:30 PM MARINE DRAFTER Office Visit [facility] Medical Group - Family Medicine [facility] #2 [place] [address] Liz Capellan, DO 2 [facility]. [address] [place] [address] 07/20/2024 2:15 PM MARINE DRAFTER [facility] [place] #2 [place] [address] Ana Vivar, FOOD SERVICE UTILITY WORKER, LUMP MACHINE OPERATOR 2 [facility]. [address] [place] [address] Yasmin Restrepo MD #[address] [address] 07/31/2024 1:00 PM MARINE DRAFTER [facility] [address] [place] [address] Werner Swift MD #2 [place] [address] Discharge Disposition: Discharged to home or Selfcare 08/03/2024 1:15 PM CDT Office Visit [facility] - Pulmonology & Sleep Medicine [facility] #2 [place] [address] Werner Swift MD #2 [place] [address] 09/02/2024 2:00 PM CDT [facility] 1 [place] [address] Werner Swift MD #2 [place] [address] Discharge Disposition: Discharged to home or Selfcare 10/09/2024 2:30 PM CDT [facility] Family Medicine [facility] #2 [place] [address] Liz Capellan, DO 2 [facility]. [address] [place] [address] documented as of this encounter Goals Goal [...] Zones/Action plan education. I will notify my Media Center Specialist if my symptoms fall in the [...] - 19 04/27/2024 04/27/2024 04/27/2024 2:19 PM MARINE DRAFTER Assessment Noted Time PHQ-9 Depression Total Score: 1 03/07/20 21 10:29 AM CDT documented as of this encounter Care Teams Bobcat Operator Relationship Specialty Start Date End Date Keith Craft MD PCP - General Family Medicine 01/14/19 12/26/23 Liz Capellan DO [address] [id number] PCP - General Family Medicine 12/27/23 Quang Locke DO Gastroenterology 01/18/16 [place] [address] [address] 05/25/21 Werner Swift MD #2 [place] [address] Consulting Physician Pulmonary Disease 01/30/22 documented as of this encounter
--- OUTSIDE RECORDS SUMMARY | 2024-07-10 13:43 | XMS_ITS | Encounter Summary ---
Author Organization [facility] Address [address] [place] [address] Phone Care Team Providers Care Hvac Sales Engineer Name Role Phone Quang Locke DO Unavailable [phone] Keith Craft MD Primary Care Provider [phone] Silvio Schulte MD Unavailable [phone] Werner Swift MD Unavailable Liz Capellan DO Primary Care Provider [phone] Reason for Visit * Reason Comments Medication Refill Encounter Details Date Type Department Care Team (Late st Contact Info) Description 09/11/2023 [facility]ill [facility] - [facility] [address] [place] [phone] Keith Craft MD [address] [place] [address] Medication Refill Social History Tobacco Use Types Packs/Day Years Used Date Smoking Tobacco: Former Cigarettes 2 50 1 - 03/16/2018 Smokeless Tobacco: Never Comments:Still uses nictoine patches and gum Alcohol Use Standard Drinks/Week Comments No 0 (1 standard drink = 0.6 oz pur e alcohol) [facility] Utilities Answer Date Recorded In the past [...] often do you attend chur ch or mormonism services? Never 07/13/2023 Do you belong to any clubs o r organizations such as sabianist groups, unions, fraternal or athletic groups, or [...] Score - Questions 1-9 0 /0 08/2021 [facility] of Occupat ional Health - Occupational Stress [...] place to sleep or slept in a usp (including now)? No 07/13/2023 Education Answer Date [...] Telephone Encounter - Gloria Cornejo RN - 09/11/2023 11:05 AM CDT PDMP 08/15/23 Medication failed the protocol, provider to review and approve the medication order if appropriate. Requested Prescriptions Pending Prescriptions Disp Refills oxyCODONE-acetaminophen (PERCOCET) 5-325 MG Tablet [Pharmacy Med Name: OXYCODONE/ACETAMINOPHEN 5-325MG TABLET] 120 Tablet 0 Sig: TAKE 1 TABLET BY MOUTH EVERY SIX (6) HOURS NEEDED FOR MODERATE OR MORE SEVERE PAIN. Not Delegated - Opioid Combinations Protocol Failed - 09/11/2023 10:06 AM Failed - This refill cannot be delegated Passed - Visit with relevant provider in past 12 months or upcoming 90 days Recent Visits Date Type Provider Dept 08/15/23 Office Visit Keith Craft MD [facility] 05/02/23 Office Visit Keith Craft MD [facility] 04/12/23 Office Visit Keith Craft MD [facility] 12/10/22 Office Visit Keith Craft MD [facility] Showing recent visits within past 365 days and meeting all other requirements Future Appointments No visits were found meeting these conditions. Showing future appointments within next 90 days and meeting all other requirements documented in this encounter Plan of Treatment Upcoming Encounters Date Type Department Care Team (Late st Contact Info) Description 07/13/2024 1:30 PM HVAC SALES ENGINEER [facility] Visit [facility] - Family Medicine - [place] [address] [place] [address] Liz Capellan L, DO [address] [address] 07/20/2024 2:15 PM HVAC SALES ENGINEER Office [facility] - [facility] [place] [address] [place] [address] Ana Vivar, BOTTLE BLOWER, CHAIN MORTISER OPERATOR [address] [address] Yasmin Restrepo MD #[address] [address] 07/31/2024 1:00 PM HVAC SALES ENGINEER [facility] [address] [place] [address] Werner Swift MD [address] [place] [address] Discharge Disposition: Discharged to home or Selfcare 08/03/2024 1:15 PM CDT Office Visit [facility] - Pulmonology & Sleep Medicine [facility] [address] [place] [address] Werner Swift MD #2 [place] [address] 09/02/2024 2:00 PM CDT Appointment [facility] Respiratory Therapy 1 [place] [address] Werner Swift MD [address]2 [place] [address] Discharge Disposition: Discharged to home or Selfcare 10/09/2024 2:30 PM CDT Office Visit [facility] Family Medicine [facility] [address] [place] [address] Liz Capellan, DO [address] [address] documented as of this encounter Goals Goal [...] Zones/Action plan education. I will notify my Wood Shop Teacher if my symptoms fall in the [...] - 19 04/27/2024 04/27/2024 04/27/2024 2:19 PM HVAC SALES ENGINEER Assessment Noted Time PHQ-9 Depression Total Score: 1 03/07/20 21 10:29 AM CDT documented as of this encounter Care Teams Hvac Sales Engineer Relationship Specialty Start Date End Date Keith Craft MD PCP - General Family Medicine 01/14/19 12/26/23 Lzi Capellan DO 2 [place] [address] PCP - General Family Medicine 12/27/23 Quang Locke DO Gastroenterology 01/18/16 [place] [id number] [address] 05/25/21 Werner Swift MD [address] [place] [address] Consulting Physician Pulmonary Disease 01/30/22 documented as of this encounter
--- OUTSIDE RECORDS SUMMARY | 2024-07-10 13:43 | XMS_ITS | Encounter Summary ---
Author Organization [facility] Address [address] [place] [address] Phone Care Team Providers Care Concrete Inspector Name Role Phone Quang Locke Unavailable [phone] Keith Craft MD Primary Care Provider [phone] Bri Rollins RN Unavailable Unavailable Silvio Schulte MD Unavailable [phone] Bri Rollins RN Unavailable Unavailable Werner Swift MD Unavailable Liz Capellan DO Primary Care Provider [phone] Reason for Visit * Reason Comments Medication Refill Encounter Details Date Type Department Care Team (Late st Contact Info) Description 10/02/2021 [facility]ill [facility] [address] [place] [address] Keith Craft MD [address] [place] [address] Medication Refill Social History Tobacco Use Types [...] suspected to have Coronavirus/COVID-19? No / Unsure 10/05/2021 9:26 AM CDT documented as of this encounter Miscellaneous Notes * Telephone Encounter - Gloria Cornejo RN - 10/03/2021 11:45 AM CDT Follow up 10/05/21 Per nursing clinical judgement, provider to review and approve the medication(s) order(s) if appropriate. Requested Prescriptions Pending Prescriptions Disp Refills pantoprazole (PROTONIX) 40 MG Tablet Delayed Response [Pharmacy Med Name: PANTOPRAZOLE SODIUM 40MG TABLET DR] 90 Tablet 0 Sig: TAKE ONE (1) TABLET BY MOUTH DAILY. INDICATIONS: GASTROESOPHAGEAL REFLUX DISEASE WITH CURRENT SYMPTOMS There is no refill protocol information for this order amitriptyline (ELAVIL) 25 MG Tablet [Pharmacy Med Name: AMITRIPTYLINE HCL 25MG TABLET] 90 Tablet 0 Sig: TAKE ONE TABLET BY MOUTH AT NIGHT There is no refill protocol information for this order ergocalciferol (VITAMIN D) 78770 UNIT Capsule [Pharmacy Med Name: VITAMIN D 71042ORZ CAPSULE] 12 Capsule 0 Sig: TAKE ONE CAPSULE BY MOUTH ONE TIME WEEKLY There is no refill protocol information for this order documented in this encounter Plan of Treatment Upcoming Encounters Date Type Department Care Team (Late st Contact Info) Description 07/13/2024 1:30 PM MAILROOM PERSONNEL Office Visit [facility] - Family Medicine [facility] [address]2 [place] [address] Liz Capellan L, DO 2 [facility] [address] [place] [address] 07/20/2024 2:15 PM MAILROOM PERSONNEL Office Visit [facility] - Endocrinology - [place] #2 [place] [address] Ana Vivar, COFOUNDER, STUDY COORDINATOR 2 [facility] [address] [place] [address] Yasmin Restrepo MD #[address] [phone] 07/31/2024 1:00 PM MAILROOM PERSONNEL [facility] [address] [place] [address] Werner Swift MD [address]2 [place] [address] Discharge Disposition: Discharged to home or Selfcare 08/03/2024 1:15 PM CDT Office Visit [facility] - Pulmonology & Sleep Medicine [facility] #2 [place] [address] Werner Swift MD [address] [place] [address] 09/02/2024 2:00 PM CDT [facility] [address] [place] [address] Werner Swift MD [address]2 [place] [address] Discharge Disposition: Discharged to home or Selfcare 10/09/2024 2:30 PM CDT Office Visit [facility] - Family [facility] [place] [address] [place] [address] Liz Capellan, DO [address] [facility] [place] [place] [place] [address] documented as of this encounter Goals Goal [...] plan education. I will notify my Wood Fence Erector if my symptoms fall in the y [...] 19 04/20/2022 04/20/2022 04/30/2022 12:1 8 AM MAILROOM PERSONNEL COVID - 19 07/18/2022 07/18/2022 07/28/2022 12:1 6 AM MAILROOM PERSONNEL COVID - 19 08/21/2022 08/21/2022 08/22/2022 8:31 AM CDT Respiratory Rule Out - RPA 08/21/2022 08/21/2022 0 08/22/2022 3:21 PM CDT COVID - 19 04/18/2023 04/18/2023 04/28/2023 12:1 6 AM MAILROOM PERSONNEL COVID - 19 07/13/2023 07/13/2023 07/23/2023 12:1 6 AM MAILROOM PERSONNEL Respiratory Rule Out - RPA 03/17/2024 03/17/2024 1 3:36 PM CDT COVID - 19 04/27/2024 04/27/2024 04/27/2024 2:19 PM MAILROOM PERSONNEL Assessment Noted Time PHQ-9 Depression Total Score: 1 03/07/20 21 10:29 AM CDT documented as of this encounter Care Teams Concrete Inspector Relationship Specialty Start Date End Date Keith Craft MD PCP - General Family Medicine 01/14/19 12/26/23 Liz Capellan DO [address] [address] PCP - General Family Medicine 12/27/23 Quang Locke DO Gastroenterology 01/18/16 Bri Rollins RN [place] Wood Fence Erector 03/07/21 05/22/23 [place] [id number] [address] 05/25/21 Bri Rollins RN [place] Nurse Wood Fence Erector 03/07/21 05/23/23 Werner Swift MD #[address] [place] [address] Consulting Physician Pulmonary Disease 01/30/22 documented as of this encounter
--- OUTSIDE RECORDS SUMMARY | 2024-07-10 13:44 | XMS_ITS | Encounter Summary ---
Author Organization [facility] Address [address] [place] [address] Phone Care Team Providers Care Disk Recoater Name Role Phone Quang Locke Unavailable [phone] Keith Craft MD Primary Care Provider [phone] Bri Rollins RN Unavailable Unavailable Silvio Schulte MD Unavailable [phone] Bri Rollins RN Unavailable Unavailable Werner Swift MD Unavailable Liz Capellan DO Primary Care Provider [phone] Reason for Visit * Reason Comments Medication Refill Encounter Details Date Type Department Care Team (Late st Contact Info) Description 02/18/2023 Refill [facility] - Family Medicine [facility] [address] [place] [address] Keith Craft MD [address] [place] [address] Medication Refill Social History Tobacco Use Types [...] suspected to have Coronavirus/COVID-19? No / Unsure 01/29/2023 12:54 PM CDT documented as of this encounter Miscellaneous Notes * Telephone Encounter - Gloria Cornejo RN - 02/18/2023 3:35 PM CDT Medication failed the protocol, provider to review and approve the medication order if appropriate. Requested Prescriptions Pending Prescriptions Disp Refills Trelegy Ellipta 100-62.5-25 MCG/ACT AEROSOL POWDER, BREATH ACTIVATED [Pharmacy Med Name: TRELEGY ELLIPTA 100MCG AERO POW BR ACT] 60 Each 2 Sig: TAKE ONE (1) PUFF BY INHALATION DAILY. Inhaled Combinations Protocol Passed - 02/18/2023 10:20 AM Passed - Visit with relevant provider in past 12 months or upcoming 90 days Recent Visits Date Type Provider Dept 12/10/22 Office Visit Keith Craft [facility] 09/10/22 Office Visit Keith Craft MD [facility] 07/18/22 Office Visit Kerri Kauffman, CUSTOMER SUPPORT ENGINEER, SOFTWARE SALES REPRESENTATIVE [facility] 06/07/22 Office Visit Keith Craft MD [facility] 03/02/22 Procedure Visit [facility] 03/02/22 Office Visit Keith Craft MD [facility] Showing recent visits within past 365 days and meeting all other requirements Future Appointments Date Type Provider Dept 04/12/23 Appointment Keith Craft MD [facility] Showing future appointments within next 90 days and meeting all other requirements Passed - Active short-acting beta agonist prescription Movantik 25 MG Tablet [Pharmacy Med Name: MOVANTIK 25MG TABLET] 30 Tablet 3 Sig: TAKE ONE (1) TABLET BY MOUTH EVERY MORNING (BEFORE BREAKFAST). Not Delegated - Naloxone Protocol Failed - 02/18/2023 10:20 AM Failed - This refill cannot be delegated Passed - Visit with relevant provider in past 12 months or upcoming 90 days Recent Visits Date Type Provider Dept 12/10/22 Office Visit Keith Craft MD [facility] 09/10/22 Office Visit Keith Craft MD [facility] 07/18/22 Office Visit Kerri Kauffman, CUSTOMER SUPPORT ENGINEER, SOFTWARE SALES REPRESENTATIVE [facility] 06/07/22 Office Visit Keith Craft MD [facility] 03/02/22 Procedure Visit [facility] 03/02/22 Office Visit Keith Craft MD [facility] Showing recent visits within past 365 days and meeting all other requirements Future Appointments Date Type Provider Dept 04/12/23 Appointment Keith Craft MD [facility] Showing future appointments within next 90 days and meeting all other requirements rosuvastatin (CRESTOR) 20 MG Tablet [Pharmacy Med Name: ROSUVASTATIN CALCIUM 20MG TABLET] 90 Tablet1 Sig: TAKE ONE (1) TABLET BY MOUTH NIGHTLY. Hmg CoA Reductase Inhibitors Protocol Passed - 02/18/2023 10:20 AM Passed - Visit with relevant provider in past 12 months or upcoming 90 days Recent Visits Date Type Provider Dept 12/10/22 Office Visit Keith Craft MD [facility] 09/10/22 Office Visit Keith Craft MD [facility] 07/18/22 Office Visit Kerri Kauffman, CUSTOMER SUPPORT ENGINEER, SOFTWARE SALES REPRESENTATIVE [facility] 06/07/22 Office Visit Keith Craft MD [facility] 03/02/22 Procedure Visit [facility] [place] 03/02/22 Office Visit Keith Cratf MD [facility] Showing recent visits within past 365 days and meeting all other requirements Future Appointments Date Type Provider Dept 04/12/23 Appointment Keith Craft MD [facility] Showing [...] months SODIUM Date Value Ref Range Status 12/17/2022 138 136 - 144 mmol/L Final POTASSIUM Date Value Ref Range Status 12/17/2022 4.5 3.5 - 5.1 mmol/L Final CHLORIDE Date Value Ref Range Status 12/17/2022 101 100 - 110 mmol/L Final CO2, VENOUS Date Value Ref Range Status 12/17/2022 27 22 - 32 mmol/L Final ANION GAP Date Value Ref Range Status 12/17/2022 14.5 8.0 - 20.0 mmol/L Final GLUCOSE Date Value Ref Range Status 12/17/2022 76 70 - 99 mg/dL Final BUN Date Value Ref Range Status 12/17/2022 19 8 - 23 mg/dL Final CREATININE, BLOOD Date Value Ref Range Status 12/17/2022 0.96 0.60 - 1.10 mg/dL Final BUN/CREATININE RATIO Date Value Ref Range Status 12/17/2022 20 12 - 20 ratio Final TOTAL PROTEIN Date Value Ref Range Status 12/17/2022 7.2 6.0 - 8.3 g/dL Final ALBUMIN Date Value Ref Range Status 12/17/2022 4.3 3.5 - 5.2 g/dL Final Comment: The colormetric methods used for the determination of Albumin may lead to falsely elevated test results in patients suffering from renal failure or insufficiency due to interference with other proteins. A/G RATIO Date Value Ref Range Status 12/17/2022 1.5 1.0 - 2.0 Final CALCIUM Date Value Ref Range Status 12/17/2022 9.8 8.7 - 10.5 mg/dL Final T BILI Date Value Ref Range Status 12/17/2022 0.5 0.2 - 1.2 mg/dL Final SGOT (AST) Date Value Ref Range Status 12/17/2022 19 <=32 U/L Final SGPT (ALT) Date Value Ref Range Status 12/17/2022 15 <=41 U/L Final ALKALINE PHOSPHATASE Date Value Ref Range Status 12/17/2022 60 35 - 105 U/L Final GFR, EST. NONAFRICAN Date Value Ref Range Status 12/17/2022 57 (L) >=60 Final GFR, EST. Date Value Ref Range Status 12/17/2022 >60 >=60 Final GFR, ESTIMATED Date Value Ref Range Status 12/17/2022 >60 >=60 Final Comment: Creatinine Clearance is [...] Value Ref Range Status 12/17/2022 No Final documented in this encounter Plan of Treatment Upcoming Encounters Date Type Department Care Team (Late st Contact Info) Description 07/13/2024 1:30 PM L TACKER Office Visit [facility] - Family [facility] #2 [place] [address] Liz Capellan, DO 2 [facility]. [address] [place] [address] 07/20/2024 2:15 PM L TACKER Office Visit [facility] Endocrinology [facility] #2 [facility] [place] [place] [address] Ana Vivar, CUSTOMER SUPPORT ENGINEER, SOFTWARE SALES REPRESENTATIVE 2 [facility] [address] [place] [address] Yasmin Restrepo MD #[address] [phone] 07/31/2024 1:00 PM L TACKER [facility] [address] [place] [address] Werner Swift MD #2 [place] [address] Discharge Disposition: Discharged to home or Selfcare 08/03/2024 1:15 PM CDT Office Visit [facility] - Pulmonology & Sleep Medicine [facility] #2 [place] [address] Werner Swift MD #2 [place] [address] 09/02/2024 2:00 PM CDT [facility] 1 [place] [address] Werner Swift MD #2 [place] [address] Discharge Disposition: Discharged to home or Selfcare 10/09/2024 2:30 PM CDT Office [facility] Medical [facility] - Family Medicine [facility] #[address] [place] [address] Liz Capellan, DO 2 [facility] [address] [place] [address] documented as of this encounter Goals Goal [...] Zones/Action plan education. I will notify my Build Technician if my symptoms fall in the [...] 19 04/18/2023 04/18/2023 04/28/2023 12:1 6 AM L TACKER COVID - 19 07/13/2023 07/13/2023 07/23/2023 12:1 6 AM L TACKER Respiratory Rule Out - RPA 03/17/2024 03/17/2024 1 3:36 PM CDT COVID - 19 04/27/2024 04/27/2024 04/27/2024 2:19 PM L TACKER Assessment Noted Time PHQ-9 Depression Total Score: 1 03/07/20 10:29 AM CDT documented as of this encounter Care Teams Disk Recoater Relationship Specialty Start Date End Date Keith Craft MD PCP - General Family Medicine 01/14/19 12/26/23 Liz Capellan DO [address] [address] PCP - General Family Medicine 12/27/23 Quang Locke DO Gastroenterology 01/18/16 Bri Rollins RN [place] Build Technician 03/07/21 05/22/23 [place] [address] [address] 05/25/21 Bri Rollins RN [place] Nurse Build Technician 03/07/21 05/23/23 Werner Swift MD #2 [place] [address] Consulting Physician Pulmonary Disease 01/30/22 documented as of this encounter
--- OUTSIDE RECORDS SUMMARY | 2024-07-10 13:44 | XMS_ITS | Encounter Summary ---
Author Organization [facility] Address [address] [place] [address] Phone Care Team Providers Care Conveyor Technician Name Role Phone Quang Locke Unavailable [phone] Keith Craft MD Primary Care Provider [phone] Bri Rollins RN Unavailable Unavailable Silvio Schulte MD Unavailable [phone] Bri Rollins RN Unavailable Unavailable Werner Swift MD Unavailable Liz Capellan DO Primary Care Provider Reason for Visit * Reason Comments Medication Refill Encounter Details Date Type Department Care Team (Late st Contact Info) Description 05/06/2021 Refill [facility] #2 [place] [address] Keith Craft MD #1 [place] [address] Medication Refill Social History Tobacco Use Types [...] COVID-19? No / Unsure 05/05/2021 3:02 PM STOCK RANCH SUPERVISOR documented as of this encounter Miscellaneous Notes * Telephone Encounter - Keerthi Kline RN - 05/06/2021 12:30 PM CST Medication failed the protocol, provider to review and approve the medication order if appropriate. Requested Prescriptions Pending Prescriptions Disp Refills Advair Diskus 500-50 MCG/DOSE AEROSOL POWDER, BREATH ACTIVATED [Pharmacy Med Name: ADVAIR 500-50 DISKUS] 180 Each 0 Sig: INHALE ONE PUFF BY MOUTH TWO TIMES A DAY Inhaled Combinations Protocol Passed - 05/06/2021 6:57 AM Passed - Visit with relevant provider in past 12 months or upcoming 90 days Recent Visits Date Type Provider Dept 05/05/21 Office Visit Brie Denis, NICOLE [facility] 04/14/21 Office Visit Keith Craft MD [facility] 03/23/21 Office Visit Keith Craft MD [facility] 02/07/21 Office Visit Keith Craft MD [facility] 02/03/21 Office Visit Brie Denis, PAC [facility] 01/12/21 Office Visit Keith Craft MD [facility] 10/12/20 Office Visit Keith Craft MD [facility] 10/04/20 Office Visit Keith Craft MD [facility] 06/07/20 Office Visit Keith Craft MD [facility] Showing recent visits within past 365 days and meeting all other requirements Future Appointments No visits were found meeting these conditions. Showing future appointments within next 90 days and meeting all other requirements Passed - Active short-acting beta agonist prescription K RANCH SUPERVISOR documented in this encounter Plan of Treatment Upcoming Encounters Date Type Department Care Team (Late st Contact Info) Description 07/13/2024 1:30 PM STOCK RANCH SUPERVISOR Office [facility] Medical [facility] - Family Medicine - [place] #2 [facility] [address] Liz Capellan L, DO 2 [facility] [address] [place] [address] 07/20/2024 2:15 PM STOCK RANCH SUPERVISOR Office Visit [facility] - Endocrinology - [place] #2 [place] [address] Ana Vivar N, SR. UNIX SYSTEM ADMINISTRATOR, STAFF TECHNOLOGIST 2 [facility] [address] [place] [address] Yasmin Restrepo MD #[address] [place] [address] 07/31/2024 1:00 PM STOCK RANCH SUPERVISOR [facility]ment [facility] [address] [place] [address] Werner Swift MD #2 [place] [address] Discharge Disposition: Discharged to home or Selfcare 08/03/2024 1:15 PM CDT Office Visit [facility] - Pulmonology & Sleep Medicine - [place] #2 [place] [address] Werner Swift MD #2 [place] [address] 09/02/2024 2:00 PM CDT Appointment [facility] Respiratory Therapy 1 [place] [address] Werner Swift MD #2 [place] [address] Discharge Disposition: Discharged to home or Selfcare 10/09/2024 2:30 PM CDT Office Visit [facility] Medical Group - Family [facility] #2 [place] [address] Liz Capellan, DO [address] [address] documented as of this encounter Goals Goal [...] Zones/Action plan education. I will notify my Biomedical Engineering Technologist if my symptoms fall in the y [...] - 19 07/23/2021 07/23/2021 07/24/2021 6:31 AM STOCK RANCH SUPERVISOR COVID - 19 10/19/2021 10/19/2021 10/20/2021 7:45 AM CDT Respiratory Rule Out - RPA 10/19/2021 10/19/2021 0 10/20/2021 2:10 PM CDT Stenotrophomonas maltophilia Comment:Must have a follow up respiratory sample to remove isolation flag. 10/20/2021 10/20/2021 COVID - 19 04/20/2022 04/20/2022 04/30/2022 12:1 8 AM STOCK RANCH SUPERVISOR COVID - 19 07/18/2022 07/18/2022 07/28/2022 12:1 6 AM STOCK RANCH SUPERVISOR COVID - 19 08/21/2022 08/21/2022 08/22/2022 8:31 AM CDT Respiratory Rule Out - RPA 08/21/2022 08/21/2022 0 08/22/2022 3:21 PM CDT COVID - 19 04/18/2023 04/18/2023 04/28/2023 12:1 6 AM STOCK RANCH SUPERVISOR COVID - 19 07/13/2023 07/13/2023 07/23/2023 12:1 6 AM STOCK RANCH SUPERVISOR Respiratory Rule Out - RPA 03/17/2024 03/17/2024 1 3:36 PM CDT COVID - 19 04/27/2024 04/27/2024 04/27/2024 2:19 PM STOCK RANCH SUPERVISOR Assessment Noted Time PHQ-9 Depression Total Score: 1 03/07/20 21 10:29 AM CDT documented as of this encounter Care Teams Conveyor Technician Relationship Specialty Start Date End Date Keith Craft MD PCP - General Family Medicine 01/14/19 12/26/23 Liz Capellan DO 2 [facility] [address] [address] PCP - General Family Medicine 12/27/23 Quang Locke DO Gastroenterology 01/18/16 Bri Rollins, KATEY [place] Biomedical Engineering Technologist 03/07/21 05/22/23 [place] [id number] [address] 05/25/21 Bri Rollins, RN [place] Nurse Biomedical Engineering Technologist 03/07/21 05/23/23 Werner Swift MD #2 [place] [address] Consulting Physician Pulmonary Disease 01/30/22 documented as of this encounter
--- OUTSIDE RECORDS SUMMARY | 2024-07-10 13:45 | XMS_ITS | Encounter Summary ---
Author Organization [facility] Address [address] [place] [address] Phone Care Team Providers Care Supervisor Drying Name Role Phone Quang Locke Unavailable [phone] Keith Craft MD Primary Care Provider [phone] Bri Rollins RN Unavailable Unavailable Silvio Schulte MD Unavailable [phone] Bri Rollins RN Unavailable Unavailable Werner Swift MD Unavailable Liz Capellan DO Primary Care Provider [phone] Reason for Visit * Reason Comments Medication Refill Encounter Details Date Type Department Care Team (Late st Contact Info) Description 10/02/2019 Refill [facility] #2 [place] [address] Keith Craft MD #1 [place] [address] Medication Refill Social History Tobacco Use Types Packs/Day Years Used Date Smoking Tobacco: Former Cigarettes 2 50 1 - 03/16/2018 Smokeless Tobacco: Never Comments:Still uses nictoine patches and gum Alcohol Use Standard Drinks/Week Comments No 0 (1 standard drink = 0.6 oz pur e alcohol) PHQ-2 Answer Date Recorded PHQ-2 Score 1 06/10/2019 Comments No Sex and Gender Information Value Date Recorded Sex Assigned at Not on file Legal Sex Female 11:08 PM CDT Gender Identity Not on file Sexual Orientation Not on file Occupation Industry Job Start Date Job End Date disability Not on file Not on file Not on file documented as of this encounter Miscellaneous Notes * Telephone Encounter - Noemi Gabriel RN - 10/02/2019 11:18 AM CDT Requested Prescriptions Pending Prescriptions Disp Refills diazePAM (VALIUM) 10 MG Tablet [Pharmacy Med Name: DIAZEPAM 10 MG TABLET] 30 Tab 0 Sig: TAKE 1 TABLET BY MOUTH EVERY DAY Not Delegated - Psychiatry: Anxiolytics/Hypnotics Failed - 10/02/2019 11:18 AM Failed - This refill cannot be delegated Passed - Valid encounter within last 6 months Past Office Visits Recent Outpatient Visits 2 months ago Coronary artery disease involving [place] coronary artery of [place] heart without angina pectoris [facility] Keith Craft MD 3 months ago COPD exacerbation (HCC) [facility] Brie Denis PAC 5 months ago Type 2 diabetes mellitus with diabetic neuropathy, with long-term current use of insulin ([facility]) [facility] Keith Elizalde MD 8 months ago Type 2 diabetes mellitus with diabetic neuropathy, with long-term current use of insulin ([facility]) [facility] Keith Craft MD Upcoming Appointments Future Appointments In 1 month Keith Craft MD [facility], [facility] documented in this encounter Plan of Treatment Upcoming Encounters Date Type Department Care Team (Late st Contact Info) Description 07/13/2024 1:30 PM CLERICAL ADVISER Office Visit [facility] - Family Medicine [facility] #2 [place] [address] Liz Capellan, DO 2 [facility] [address] [place] [address] 07/20/2024 2:15 PM CLERICAL ADVISER Office Visit [facility] - Endocrinology - [place] #2 [place] [address] Ana Vivar, SPONGE HOOKER, MELT SUPERVISOR 2 [facility] [address] [place] [address] Yasmin Restrepo MD #[address] [address] 07/31/2024 1:00 PM CLERICAL ADVISER [facility] [address] [place] [address] Werner Swift MD #2 [place] [address] Discharge Disposition: Discharged to home or Selfcare 08/03/2024 1:15 PM CDT Office Visit [facility] Medical [facility] - Pulmonology & Sleep Medicine [facility] #2 [place] [address] Werner Swift MD #2 [place] [address] 09/02/2024 2:00 PM CDT [facility]ointment [facility] Res[facility] 1 [place] [address] Werner Swift MD #2 [place] [address] Discharge Disposition: Discharged to home or Selfcare 10/09/2024 2:30 PM CDT Office Visit [facility] - Family Medicine - [place] [address] [place] [address] Liz Capellan, DO 2 [address] [place] [address] documented as of this encounter Visit Diagnoses Diagnosis Anxiety and depression Dysthymic disorder documented in this encounter Additional Health Concerns Infection Onset Date Last Indicated Resolved Time COVID - 19 01/25/2021 01/25/2021 01/31/2021 8:10 AM CDT Respiratory Rule Out - RPA 01/30/2021 01/30/2021 0 02/01/2021 12:45 AM CDT COVID - 19 07/23/2021 07/23/2021 07/24/2021 6:31 AM CLERICAL ADVISER COVID - 19 10/19/2021 10/19/2021 10/20/2021 7:45 AM CDT Respiratory Rule Out - RPA 10/19/2021 10/19/2021 0 10/20/2021 2:10 PM CDT Stenotrophomonas maltophilia Comment:Must have a follow up respiratory sample to remove isolation flag. 10/20/2021 10/20/2021 COVID - 19 04/20/2022 04/20/2022 04/30/2022 12:1 8 AM CLERICAL ADVISER COVID - 19 07/18/2022 07/18/2022 07/28/2022 12:1 6 AM CLERICAL ADVISER COVID - 19 08/21/2022 08/21/2022 08/22/2022 8:31 AM CDT Respiratory Rule Out - RPA 08/21/2022 08/21/2022 0 08/22/2022 3:21 PM CDT COVID - 19 04/18/2023 04/18/2023 04/28/2023 12:1 6 AM CLERICAL ADVISER COVID - 19 07/13/2023 07/13/2023 07/23/2023 12:1 6 AM CLERICAL ADVISER Respiratory Rule Out - RPA 03/17/2024 03/17/2024 1 3:36 PM CDT COVID - 19 04/27/2024 04/27/2024 04/27/2024 2:19 PM CLERICAL ADVISER Assessment Noted Time PHQ-9 Depression Total Score: 1 06/10/19 20 1:03 PM CLERICAL ADVISER documented as of this encounter Care Teams Supervisor Drying Relationship Specialty Start Date End Date Keith Craft MD PCP - General Family Medicine 01/14/19 12/26/23 Liz Capellan DO [address] [address] PCP - General Family Medicine 12/27/23 Quang Locke DO Gastroenterology 01/18/16 Bri Rollins RN [place] Laboratory Scientist 03/07/21 05/22/23 [place] [address] [address] 05/25/21 Bri Rollins RN [place] Nurse Laboratory Scientist 03/07/21 05/23/23 Werner Swift MD #2 [place] [address] Consulting Physician Pulmonary Disease 01/30/22 documented as of this encounter
--- OUTSIDE RECORDS SUMMARY | 2024-07-10 13:45 | XMS_ITS | Encounter Summary ---
Author Organization [facility] Address [address] [place] [address] Phone Care Team Providers Care Screening Technician Name Role Phone Quang Locke DO Unavailable [phone] Keith Craft MD Primary Care Provider [phone] Bri Rollins RN Unavailable Unavailable Silvio Schulte MD Unavailable [phone] Bri Rollins RN Unavailable Unavailable Werner Swift MD Unavailable Liz Capellan DO Primary Care Provider [phone] Encounter Details Date Type Department Care Team (Late st Contact Info) Description 04/22/2023 Telephone [facility] [address] [place] [address] Keith Craft MD #1 [place] [address] Social History Tobacco Use Types [...] Telephone Encounter - Keith Craft MD - 04/23/2023 6:59 PM CST Ms Bellamy should be on the ipatropium nebulizer. The interactions of dluoxetine with amitriptyline is ok With lexapro is fine Lexapro with amitriptyline is ok With levaquine is fine. ING SCALER * Telephone Encounter - Kunal Garcia RN - 04/22/2023 2:14 PM CST Please respond to each line item below. Patient admitted to [facility] on 04/22/23 for therapy services and nursing services. Medication review completed with pt on 04/22/23. Patient is not taking the following medications: ipratropium nebulizer vials due to not having available in home. Should patient resume or discontinue? Please review the following potential major [id number] interactions: DULoxetine and amitriptyline Duloxetine may increase the plasma concentrations and pharmacologic effects of tricyclic antidepressants. Additive serotonergic effects may also occur during coadministration of duloxetine and tricyclic antidepressants (TCAs), and the risk of developing serotonin syndrome may be increased. Drug-Drug: escitalopram and amitriptyline Additive serotonergic effects may occur during coadministration of escitalopram and tricyclic antidepressants (TCAs), and the risk of developing serotonin syndrome may be increased. Drug-Drug: DULoxetine and escitalopram Additive serotonergic effects may occur during coadministration of duloxetine and selective serotonin reuptake inhibitors (SSRIs), and the risk of developing serotonin syndrome may be increased. Drug-Drug: levoFLOXacin and escitalopram Additive QT interval prolongation may occur during coadministration of moderate- risk QT-prolonging agents, escitalopram and levoFLOXacin. Patient is asymptomatic. Please route response to P Clinical Support Triage or call [facility] [phone] option 4 for a nurse. Response is required within 24 hours to meet regulatory requirements. Thank you ING SCALER documented in this encounter Plan of Treatment Upcoming Encounters Date Type Department Care Team (Late st Contact Info) Description 07/13/2024 1:30 PM LANDING SCALER Office Visit [facility] - Family Medicine - [place] [address] [place] [address] Liz Capellan, DO [address] [address] 07/20/2024 2:15 PM LANDING SCALER Office Visit [facility] Endocrinology - [place] #2 [place] [address] Ana Vivar, REBECCA, LINING IRONER [address] [address] Yasmin Restrepo MD #[address] [address] 07/31/2024 1:00 PM LANDING SCALER [facility] [address] [place] [address] Werner Swift MD #2 [place] [address] Discharge Disposition: Discharged to home or Selfcare 08/03/2024 1:15 PM CDT Office Visit [facility] Pulmonology & Sleep Medicine [facility] #2 [place] [address] Werner Swift MD #2 [place] [address] 09/02/2024 2:00 PM CDT Appointment [facility] Respiratory Therapy [address] [place] [address] Werner Swift MD #2 [place] [address] Discharge Disposition: Discharged to home or Selfcare 10/09/2024 2:30 PM CDT Office Visit [facility] - [place] #2 [place] [address] Liz Capellan, DO [address] [address] documented as of this encounter Goals Goal [...] Zones/Action plan education. I will notify my Fire Boat Engineer if my symptoms fall in the [...] 19 04/18/2023 04/18/2023 04/28/2023 12:1 6 AM LANDING SCALER COVID - 19 07/13/2023 07/13/2023 07/23/2023 12:1 6 AM LANDING SCALER Respiratory Rule Out - RPA 03/17/2024 03/17/2024 1 3:36 PM CDT COVID - 19 04/27/2024 04/27/2024 04/27/2024 2:19 PM LANDING SCALER Assessment Noted Time PHQ-9 Depression Total Score: 1 03/07/20 21 10:29 AM CDT documented as of this encounter Care Teams Screening Technician Relationship Specialty Start Date End Date Keith Craft MD PCP - General Family Medicine 01/14/19 12/26/23 Liz Capellan DO [address] [address] PCP - General Family Medicine 12/27/23 Quang Locke DO Gastroenterology 01/18/16 Bir Rollins RN [place] Fire Boat Engineer 03/07/21 05/22/23 [place] [address] [place] [address] 05/25/21 Bri Rollins RN [place] Nurse Fire Boat Engineer 03/07/21 05/23/23 Werner Swift MD #2 [place] [address] Consulting Physician Pulmonary Disease 01/30/22 documented as of this encounter
--- OUTSIDE RECORDS SUMMARY | 2024-07-10 13:45 | XMS_ITS | Encounter Summary ---
Author Organization [facility] Address [address] [place] [address] Phone Care Team Providers Care Electronic Calibration Technician Name Role Phone Quang Locke Unavailable [phone] Keith Craft MD Primary Care Provider [phone] Bri Rollins RN Unavailable Unavailable Silvio Schulte MD Unavailable [phone] Bri Rollins RN Unavailable Unavailable Werner Swift MD Unavailable Liz Capellan DO Primary Care Provider [phone] Reason for Visit * Reason Comments Medication Refill Encounter Details Date Type Department Care Team (Late st Contact Info) Description 09/01/2021 Refill [facility] #2 [place] [address] Keith Craft MD #1 [place] [address] Medication Refill Social History Tobacco Use Types [...] suspected to have Coronavirus/COVID-19? No / Unsure 09/04/2021 1:32 PM CDT documented as of this encounter Miscellaneous Notes * Telephone Encounter - Gloria Cornejo RN - 09/01/2021 12:56 PM CDT PDMP [place] 08/10/21 - Diazepam 07/31/21 Medication failed the protocol, provider to review and approve the medication order if appropriate. Requested Prescriptions Pending Prescriptions Disp Refills diazePAM (VALIUM) 5 MG Tablet [Pharmacy Med Name: DIAZEPAM 5MG TABLET] 30 Tablet 0 Sig: TAKE ONE (1) TABLET BY MOUTH DAILY NEEDED FOR ANXIETY. Not Delegated - Benzodiazepines Protocol Failed - 09/01/2021 9:40 AM Failed - This refill cannot be delegated Passed - Visit with relevant provider in past 12 months or upcoming 90 days Recent Visits Date Type Provider Dept 08/14/21 Office Visit Keith Craft MD [facility] 07/31/21 Office Visit Keith Craft MD [facility] 05/25/21 Office Visit Marcin Anderson, MAGNETIC PROSPECTOR, QUARTZ ORIENTATOR [facility] 05/05/21 Office Visit Brie Denis, [facility] 04/14/21 Office Visit Keith Craft MD [facility] 03/23/21 Office Visit Keith Craft MD [facility] 02/07/21 Office Visit Keith Craft MD [facility] 02/03/21 Office Visit Brie Denis, NICOLE [facility] 01/12/21 Office Visit Keith Craft MD [facility] 10/12/20 Office Visit Keith Craft MD [facility] Showing recent visits within past 365 days and meeting all other requirements Future Appointments Date Type Provider Dept 09/08/21 Appointment Brie Denis PAC [facility] Showing future appointments within next 90 days and meeting all other requirements HYDROcodone-acetaminophen (NORCO) 7.5-325 MG Tablet [Pharmacy Med Name: HYDROCODONE/ACETAMINOPHEN 7.5-325 TABLET] 30 Tablet 0 Sig: TAKE ONE (1) TABLET BY MOUTH EVERY DAY NEEDED FOR MODERATE OR MORE SEVERE PAIN Not Delegated - Opioid Combinations Protocol Failed - 09/01/2021 9:40 AM Failed - This refill cannot be delegated Passed - Visit with relevant provider in past 12 months or upcoming 90 days Recent Visits Date Type Provider Dept 08/14/21 Office Visit Keith Craft MD [facility] 07/31/21 Office Visit Keith Craft MD [facility] 05/25/21 Office Visit Marcin Anderson APRN, QUARTZ ORIENTATOR [facility] 05/05/21 Office Visit Brie Denis, PAC [facility] 04/14/21 Office Visit Keith Craft MD [facility] 03/23/21 Office Visit Keith Craft MD [facility] 02/07/21 Office Visit Keith Craft MD [facility] 02/03/21 Office Visit Brie Denis, PAC [facility] 01/12/21 Office Visit Keith Craft MD [facility] 10/12/20 Office Visit Keith Craft MD [facility] Showing recent visits within past 365 days and meeting all other requirements Future Appointments Date Type Provider Dept 09/08/21 Appointment Brie Denis PAC [facility] Showing future appointments within next 90 days and meeting all other requirements documented in this encounter Plan of Treatment Upcoming Encounters Date Type Department Care Team (Late st Contact Info) Description 07/13/2024 1:30 PM CONTROLS DESIGN ENGINEER [facility] - [place] #2 [place] [address] Liz Capellan L, DO 2 [facility] [address] [place] [address] 07/20/2024 2:15 PM CONTROLS DESIGN ENGINEER [facility] [place] #2 [facility] [place] [address] Ana Vivar N, MAGNETIC PROSPECTOR, QUARTZ ORIENTATOR 2 [facility] [address] [place] [address] Yasmin Restrepo MD #[address] [address] 07/31/2024 1:00 PM CONTROLS DESIGN ENGINEER [facility]ment [facility] [address] [place] [address] Werner Swift MD #2 [place] [address] Discharge Disposition: Discharged to home or Selfcare 08/03/2024 1:15 PM CDT [facility] [place] #2 [place] [address] Werner Swift MD #2 [place] [address] 09/02/2024 2:00 PM CDT [facility]ointment [facility] Respiratory Therapy [address] [place] [address] Werner Swift MD #[address] [place] [address] Discharge Disposition: Discharged to home or Selfcare 10/09/2024 2:30 PM CDT [facility] - [place] #[address] [place] [address] Liz Capellan, DO [address] [facility] [facility] [address] [place] [address] documented as of this encounter Goals Goal [...] Zones/Action plan education. I will notify my Electronic Scanner Operator if my symptoms fall in the [...] 19 04/20/2022 04/20/2022 04/30/2022 12:1 8 AM CONTROLS DESIGN ENGINEER COVID - 19 07/18/2022 07/18/2022 07/28/2022 12:1 6 AM CONTROLS DESIGN ENGINEER COVID - 19 08/21/2022 08/21/2022 08/22/2022 8:31 AM CDT Respiratory Rule Out - RPA 08/21/2022 08/21/2022 0 08/22/2022 3:21 PM CDT COVID - 19 04/18/2023 04/18/2023 04/28/2023 12:1 6 AM CONTROLS DESIGN ENGINEER COVID - 19 07/13/2023 07/13/2023 07/23/2023 12:1 6 AM CONTROLS DESIGN ENGINEER Respiratory Rule Out - RPA 03/17/2024 03/17/2024 1 3:36 PM CDT COVID - 19 04/27/2024 04/27/2024 04/27/2024 2:19 PM CONTROLS DESIGN ENGINEER Assessment Noted Time PHQ-9 Depression Total Score: 1 03/07/20 21 10:29 AM CDT documented as of this encounter Care Teams Electronic Calibration Technician Relationship Specialty Start Date End Date Keith Craft MD PCP - General Family Medicine 01/14/19 12/26/23 Liz Capellan DO [address] [address] PCP - General Family Medicine 12/27/23 Quang Locke DO Gastroenterology 01/18/16 Bri Rollins, KATEY [place] Electronic Scanner Operator 03/07/21 05/22/23 [place] [address] [address] 05/25/21 Bri Rollins RN [place] Nurse Electronic Scanner Operator 03/07/21 05/23/23 Werner Swift MD #2 [place] [address] Consulting Physician Pulmonary Disease 01/30/22 documented as of this encounter
--- OUTSIDE RECORDS SUMMARY | 2024-07-10 13:45 | XMS_ITS | Encounter Summary ---
Author Organization [facility] Address [address] [place] [address] Phone Care Team Providers Care Rehab Assistant Name Role Phone Quang Locke Unavailable [phone] Keith Craft MD Primary Care Provider [phone] Bri Rollins RN Unavailable Unavailable Silvio Schulte MD Unavailable [phone] Bri Rollins RN Unavailable Unavailable Werner Swift MD Unavailable Liz Capellan DO Primary Care Provider [phone] Reason for Visit * Reason Comments Medication Refill Encounter Details Date Type Department Care Team (Late st Contact Info) Description 10/12/2019 [facility] [address] [place] [address] Keith Craft MD #1 [place] [address] Medication Refill Social History Tobacco Use Types [...] Telephone Encounter - Noemi Gabriel RN - 10/12/2019 9:19 AM CDT Medication(s) refilled and signed per [facility] Chronic Medication Refill Standing Order for Pediatric and Adult Patients. documented in this encounter Plan of Treatment Upcoming Encounters Date Type Department Care Team (Late st Contact Info) Description 07/13/2024 1:30 PM FAMILY READINESS SUPPORT ASSISTANT Office Visit [facility] - Family Medicine [facility] #2 [place] [address] Liz Capellan L, DO [address] [address] 07/20/2024 2:15 PM FAMILY READINESS SUPPORT ASSISTANT Office Visit [facility] - Endocrinology [facility] #2 [place] [address] Ana Vivar, LEAD PROJECT MANAGER, SUPERVISOR BIT AND SHANK DEPARTMENT [address] [address] Yasmin Restrepo MD #[address] [address] 07/31/2024 1:00 PM FAMILY READINESS SUPPORT ASSISTANT [facility] [address] [place] [address] Werner Swift MD #2 [place] [address] Discharge Disposition: Discharged to home or Selfcare 08/03/2024 1:15 PM CDT [facility] #2 [place] [address] Werner Swift MD #2 [place] [address] 09/02/2024 2:00 PM CDT [facility] 1 [place] [address] Werner Swift MD #2 [place] [address] Discharge Disposition: Discharged to home or Selfcare 10/09/2024 2:30 PM CDT Office Visit [facility] Medical [facility] - Family Medicine - Central #2 [place] [address] Liz Capellan, DO [address] [address] documented as of this encounter Visit Diagnoses Not on filedocumented in this encounter Additional Health Concerns Infection Onset Date Last Indicated Resolved Time COVID - 19 01/25/2021 01/25/2021 01/31/2021 8:10 AM CDT Respiratory Rule Out - RPA 01/30/2021 01/30/2021 0 02/01/2021 12:45 AM CDT COVID - 19 07/23/2021 07/23/2021 07/24/2021 6:31 AM FAMILY READINESS SUPPORT ASSISTANT COVID - 19 10/19/2021 10/19/2021 10/20/2021 7:45 AM CDT Respiratory Rule Out - RPA 10/19/2021 10/19/2021 0 10/20/2021 2:10 PM CDT Stenotrophomonas maltophilia Comment:Must have a follow up respiratory sample to remove isolation flag. 10/20/2021 10/20/2021 COVID - 19 04/20/2022 04/20/2022 04/30/2022 12:1 8 AM FAMILY READINESS SUPPORT ASSISTANT COVID - 19 07/18/2022 07/18/2022 07/28/2022 12:1 6 AM FAMILY READINESS SUPPORT ASSISTANT COVID - 19 08/21/2022 08/21/2022 08/22/2022 8:31 AM CDT Respiratory Rule Out - RPA 08/21/2022 08/21/2022 0 08/22/2022 3:21 PM CDT COVID - 19 04/18/2023 04/18/2023 04/28/2023 12:1 6 AM FAMILY READINESS SUPPORT ASSISTANT COVID - 19 07/13/2023 07/13/2023 07/23/2023 12:1 6 AM FAMILY READINESS SUPPORT ASSISTANT Respiratory Rule Out - RPA 03/17/2024 03/17/2024 1 3:36 PM CDT COVID - 19 04/27/2024 04/27/2024 04/27/2024 2:19 PM FAMILY READINESS SUPPORT ASSISTANT Assessment Noted Time PHQ-9 Depression Total Score: 1 06/10/19 20 1:03 PM FAMILY READINESS SUPPORT ASSISTANT documented as of this encounter Care Teams Rehab Assistant Relationship Specialty Start Date End Date Keith Craft MD PCP - General Family Medicine 01/14/19 12/26/23 Liz Capellan DO [address] [address] PCP - General Family Medicine 12/27/23 Quang Locke DO Gastroenterology 01/18/16 Bri Rollins RN [place] Education Trainer 03/07/21 05/22/23 [place] [id number] [address] 05/25/21 Bri Rollins RN [place] Nurse Education Trainer 03/07/21 05/23/23 Werner Swift MD #2 [place] [address] Consulting Physician Pulmonary Disease 01/30/22 documented as of this encounter
--- OUTSIDE RECORDS SUMMARY | 2024-07-10 13:45 | XMS_ITS | Encounter Summary ---
Author Organization [facility] Address [address] [place] [address] Phone Care Team Providers Care Membership Advisor Name Role Phone Quang Locke Unavailable Keith Craft MD Primary Care Provider [phone] Bri Rollins RN Unavailable Unavailable Silvio Schulte MD Unavailable [phone] Bri Rollins RN Unavailable Unavailable Werner Swift MD Unavailable Liz Capellan DO Primary Care Provider [phone] Reason for Visit * Reason Comments Medication Refill Encounter Details Date Type Department Care Team (Late st Contact Info) Description 05/01/2023 Refill [facility] #2 [place] [address] Keith Craft MD #1 [place] [address] Medication Refill Social History Tobacco Use Types [...] pleasure in doing things Not at all 05/02/2023 11:06 AM Amparo Ramos MA Feeling down, depressed, or hopeless Not at all 05/02/2023 11:06 AM Stefania Ramos MA * Over the past 2 weeks, how often have you been bothered by any of the following problems? Question Answer Date of Assessment Author Patient Health Questionnaire-2 Score 0 05/02/2023 11:06 AM Khai Ramos MA documented as of this encounter Miscellaneous Notes * Telephone Encounter - Kelin Nance RN - 05/01/2023 12:38 PM ADVERTISING STRATEGIST PDMP 04-04-23 as 30-day supply. Fill date changed to 05-04-23 Medication failed the protocol, provider to review and approve the medication order if appropriate. Requested Prescriptions Pending Prescriptions Disp Refills diazePAM (VALIUM) 5 MG Tablet [Pharmacy Med Name: DIAZEPAM 5MG TABLET] 30 Tablet 0 Sig: Take 1 Tablet by mouth daily as needed for Anxiety. Not Delegated - Benzodiazepines Protocol Failed - 05/01/2023 11:17 AM Failed - This refill cannot be delegated Passed - Visit with relevant provider in past 12 months or upcoming 90 days Recent Visits Date Type Provider Dept 04/12/23 Office Visit Keith Craft MD [facility] 12/10/22 Office Visit Keith Craft MD [facility] [place] 09/10/22 [facility]22 Office Visit Kerri Kauffman, LACQUER MAKER, WELL TREATMENT OFFSIDER [facility] 06/07/22 Office Visit Keith [facility] MD [facility] Showing recent visits within past 365 days and meeting all other requirements Future Appointments Date Type Provider Dept 05/02/23 Appointment Keith Craft MD [facility] Showing future appointments within next 90 days and meeting all other requirements RTISING STRATEGIST documented in this encounter Plan of Treatment Upcoming Encounters Date Type Department Care Team (Late st Contact Info) Description 07/13/2024 1:30 PM ADVERTISING STRATEGIST [facility] - Family Medicine - [place] #2 [place] [address] Liz Capellan L, DO [address] [address] 07/20/2024 2:15 PM ADVERTISING STRATEGIST [facility] [place] [facility]2 [place] [address] Ana Vivar, LACQUER MAKER, WELL TREATMENT OFFSIDER [address] [address] Yasmin Restrepo MD #[address] [address] 07/31/2024 1:00 PM ADVERTISING STRATEGIST [facility] [address] [place] [address] Werner Swift MD #2 [place] [address] Discharge Disposition: Discharged to home or Selfcare 08/03/2024 1:15 PM CDT Office Visit [facility] - Pulmonology & Sleep Medicine [facility] #2 [place] [address] Werner Swift MD #2 [place] [address] 09/02/2024 2:00 PM CDT Appointment [facility] Respiratory Therapy 1 [place] [address] Werner Swift MD #2 [place] [address] Discharge Disposition: Discharged to home or Selfcare 10/09/2024 2:30 PM CDT Office Visit [facility] Family Medicine [facility] #2 [place] [address] Liz Capellan, DO [address] [address] documented as of this encounter Goals Goal [...] Zones/Action plan education. I will notify my Construction Crew Member if my symptoms fall in the [...] 07/13/2023 07/13/2023 07/23/2023 12:1 6 AM ADVERTISING STRATEGIST Respiratory Rule Out - RPA 03/17/2024 03/17/2024 1 3:36 PM CDT COVID - 19 04/27/2024 04/27/2024 04/27/2024 2:19 PM ADVERTISING STRATEGIST Assessment Noted Time PHQ-9 Depression Total Score: 1 03/07/20 21 10:29 AM CDT documented as of this encounter Care Teams Membership Advisor Relationship Specialty Start Date End Date Keith Craft MD PCP - General Family Medicine 01/14/19 12/26/23 Liz Capellan DO [address] [address] PCP - General Family Medicine 12/27/23 Quang Locke DO Gastroenterology 01/18/16 Bri Rollins RN [place] Construction Crew Member 03/07/21 05/22/23 [place] [id number] [place] [address] 05/25/21 Bri Rollins RN [place] Nurse Construction Crew Member 03/07/21 05/23/23 Werner Swift MD #2 [place] [address] Consulting Physician Pulmonary Disease 01/30/22 documented as of this encounter
--- OUTSIDE RECORDS SUMMARY | 2024-07-10 13:45 | XMS_ITS | Encounter Summary ---
Author Organization [facility] Address [address] [place] [address] Phone Care Team Providers Care Maintenance Operator Name Role Phone Quang Locke DO Unavailable [phone] Keith Craft MD Primary Care Provider [phone] Bri Rollins RN Unavailable Unavailable Silvio Schulte MD Unavailable [phone] Bri Rollins RN Unavailable Unavailable Werner Swift MD Unavailable Liz Capellan DO Primary Care Provider [phone] Encounter Details Date Type Department Care Team (Late st Contact Info) Description 04/24/2023 Telephone [facility] [address] [place] [address] Keith Craft MD #1 [place] [address] Social History Tobacco Use Types [...] Telephone Encounter - Keith Craft MD - 04/29/2023 2:28 PM CST This was sent in by pulmology. ANIZED FIBER UNIT OPERATOR * Telephone Encounter - Kunal Garcia RN - 04/24/2023 8:49 AM CST Message received that pt should be taking atrovent by nebs, can you office send in a new script forthis. She does not have in home. Pt also complaining that she has still has harsh cough at night. She is requesting mucinex or something for cough be called in for as well. She reports mucinex is covered by her insurance. She uses [facility]. Thank you for your assistance with this. ANIZED FIBER UNIT OPERATOR documented in this encounter Plan of Treatment Upcoming Encounters Date Type Department Care Team (Late st Contact Info) Description 07/13/2024 1:30 PM VULCANIZED FIBER UNIT OPERATOR [facility] Family Medicine - [place] #2 [place] [address] Liz Capellan, DO 2 [facility] [place], [facility] [place]. [address] [place] [address] 07/20/2024 2:15 PM VULCANIZED FIBER UNIT OPERATOR Office Visit [facility] - Endocrinology - [place] #2 [place] [address] Ana Vivar, COMMERCIAL LOAN UNDERWRITER, SAMPLE TESTER GRINDER 2 [facility] [address] [place] [address] Yasmin Restrepo MD #[address] [address] 07/31/2024 1:00 PM VULCANIZED FIBER UNIT OPERATOR [facility] [address] [place] [address] Werner Swift MD #2 [place] [address] Discharge Disposition: Discharged to home or Selfcare 08/03/2024 1:15 PM CDT Office Visit [facility] Medical [facility] - Pulmonology & Sleep Medicine [facility] #2 [place] [address] Werner Swift MD #2 [place] [address] 09/02/2024 2:00 PM CDT [facility] Res[facility] 1 [place] [address] Werner Swift MD #2 [place] [address] Discharge Disposition: Discharged to home or Selfcare 10/09/2024 2:30 PM CDT Office Visit [facility] - Family Medicine [facility] #2 [place] [address] Liz Capellan, DO 2 [facility] [address] [address] [address] documented as of this encounter Goals Goal [...] Zones/Action plan education. I will notify my Gas Scrubber Operator if my symptoms fall in the [...] 19 04/18/2023 04/18/2023 04/28/2023 12:1 6 AM VULCANIZED FIBER UNIT OPERATOR COVID - 19 07/13/2023 07/13/2023 07/23/2023 12:1 6 AM VULCANIZED FIBER UNIT OPERATOR Respiratory Rule Out - RPA 03/17/2024 03/17/2024 1 3:36 PM CDT COVID - 19 04/27/2024 04/27/2024 04/27/2024 2:19 PM VULCANIZED FIBER UNIT OPERATOR Assessment Noted Time PHQ-9 Depression Total Score: 1 03/07/20 21 10:29 AM CDT documented as of this encounter Care Teams Maintenance Operator Relationship Specialty Start Date End Date Keith Craft MD PCP - General Family Medicine 01/14/19 12/26/23 Liz Capellan DO [address] [address] PCP - General Family Medicine 12/27/23 Quang Locke DO Gastroenterology 01/18/16 Bri Rollins, KATEY [place] Gas Scrubber Operator 03/07/21 05/22/23 [place] [id number] [address] 05/25/21 Bri Rollins, RN [place] Nurse Gas Scrubber Operator 03/07/21 05/23/23 Werner Swift MD #2 [place] [address] Consulting Physician Pulmonary Disease 01/30/22 documented as of this encounter
--- OUTSIDE RECORDS SUMMARY | 2024-07-10 13:45 | XMS_ITS | Encounter Summary ---
Author Organization [facility] Address [address] [place] [address] Phone Care Team Providers Care Equestrian Trainer Name Role Phone Quang Locke Unavailable [phone] Keith Craft MD Primary Care Provider [phone] Bri Rollins RN Unavailable Unavailable Silvio Schulte MD Unavailable [phone] Bri Rollins RN Unavailable Unavailable Werner Swift MD Unavailable Liz Capellan DO Primary Care Provider [phone] Reason for Visit * Reason Comments Medication Refill Encounter Details Date Type Department Care Team (Late st Contact Info) Description 05/10/2021 Refill [facility] Family Medicine [facility] #2 [place] [address] Keith Craft MD #1 [place] [address] Medication Refill Social History Tobacco Use Types [...] COVID-19? No / Unsure 05/05/2021 3:02 PM FINAL INSPECTOR TRUCK TRAILER documented as of this encounter Miscellaneous Notes * Telephone Encounter - Gloria Cornejo RN - 05/10/2021 3:24 PM CST PDMP 04/14/21 - pharmacy closed on due date 05/14/21 - post date 05/13/21 Medication failed the protocol, provider to review and approve the medication order if appropriate. Requested Prescriptions Pending Prescriptions Disp Refills HYDROcodone-acetaminophen (NORCO) 7.5-325 MG Tablet [Pharmacy Med Name: HYDROCODON-APAP 7.5-325 TAB7.5-325 Tablet] 30 Tablet 0 Sig: TAKE 1 TABLET BY MOUTH DAILY NEEDED FOR MODERATE OR MORE SEVERE PAIN. Not Delegated - Opioid Combinations Protocol Failed - 05/10/2021 3:24 PM Failed - This refill cannot be delegated Passed - Visit with relevant provider in past 12 months or upcoming 90 days Recent Visits Date Type Provider Dept 05/05/21 Office Visit Brie Denis[facility] 04/14/21 Office Visit Keith Craft MD [facility] 03/23/21 Office Visit Keith Craft MD [facility] 02/07/21 Office Visit Keith Craft MD [facility] 02/03/21 Office Visit Brie Denis[facility] 01/12/21 Office Visit Keith Craft MD [facility] 10/12/20 Office Visit Keith Craft MD [facility] 10/04/20 Office Visit Keith Craft MD [facility] 06/07/20 Office Visit Keith Craft MD [facility] Showing recent visits within past 365 days and meeting all other requirements Future Appointments No visits were found meeting these conditions. Showing future appointments within next 90 days and meeting all other requirements L INSPECTOR TRUCK TRAILER documented in this encounter Plan of Treatment Upcoming Encounters Date Type Department Care Team (Late st Contact Info) Description 07/13/2024 1:30 PM FINAL INSPECTOR TRUCK TRAILER Office Visit [facility] - Family Medicine - [place] #2 [place] [address] Liz Capellan L, DO [address] [address] 07/20/2024 2:15 PM FINAL INSPECTOR TRUCK TRAILER [facility] [place] [facility]2 [place] [address] Ana Vivar, RELATIONSHIP MGR, STOCK PREPARATION SUPERVISOR [address] [address] Yasmin Restrepo MD #[address] [address] 07/31/2024 1:00 PM FINAL INSPECTOR TRUCK TRAILER [facility] [address] [place] [address] Werner Swift MD #2 [place] [address] Discharge Disposition: Discharged to home or Selfcare 08/03/2024 1:15 PM CDT Office Visit [facility] - Pulmonology & Sleep Medicine - [place] #2 [place] [address] Werner Swift MD #2 [place] [address] 09/02/2024 2:00 PM CDT Appointment [facility] Respiratory Therapy 1 [place] [address] Werner Swift MD #2 [place] [address] Discharge Disposition: Discharged to home or Selfcare 10/09/2024 2:30 PM CDT Office Visit [facility] Family Medicine - [place] #2 [place] [address] Liz Capellan, DO [address] [address] documented as of this encounter Goals Goal [...] Zones/Action plan education. I will notify my Ophthalmic Technician if my symptoms fall in the [...] - 19 07/23/2021 07/23/2021 07/24/2021 6:31 AM FINAL INSPECTOR TRUCK TRAILER COVID - 19 10/19/2021 10/19/2021 10/20/2021 7:45 AM CDT Respiratory Rule Out - RPA 10/19/2021 10/19/2021 0 10/20/2021 2:10 PM CDT Stenotrophomonas maltophilia Comment:Must have a follow up respiratory sample to remove isolation flag. 10/20/2021 10/20/2021 COVID - 19 04/20/2022 04/20/2022 04/30/2022 12:1 8 AM FINAL INSPECTOR TRUCK TRAILER COVID - 19 07/18/2022 07/18/2022 07/28/2022 12:1 6 AM FINAL INSPECTOR TRUCK TRAILER COVID - 19 08/21/2022 08/21/2022 08/22/2022 8:31 AM CDT Respiratory Rule Out - RPA 08/21/2022 08/21/2022 0 08/22/2022 3:21 PM CDT COVID - 19 04/18/2023 04/18/2023 04/28/2023 12:1 6 AM FINAL INSPECTOR TRUCK TRAILER COVID - 19 07/13/2023 07/13/2023 07/23/2023 12:1 6 AM FINAL INSPECTOR TRUCK TRAILER Respiratory Rule Out - RPA 03/17/2024 03/17/2024 1 3:36 PM CDT COVID - 19 04/27/2024 04/27/2024 04/27/2024 2:19 PM FINAL INSPECTOR TRUCK TRAILER Assessment Noted Time PHQ-9 Depression Total Score: 1 10/12/20 21 10:29 AM CDT documented as of this encounter Care Teams Equestrian Trainer Relationship Specialty Start Date End Date Keith Craft MD PCP - General Family Medicine 01/14/19 12/26/23 Liz Capellan DO [address] [address] PCP - General Family Medicine 12/27/23 Quang Locke DO Gastroenterology 01/18/16 Bri Rollins, RN [place] Ophthalmic Technician 03/07/21 05/22/23 [place] [address] [address] 05/25/21 Bri Rollins, RN [place] Nurse Ophthalmic Technician 03/07/21 05/23/23 Werner Swift MD #2 [place] [address] Consulting Physician Pulmonary Disease 01/30/22 documented as of this encounter
--- OUTSIDE RECORDS SUMMARY | 2024-07-10 13:45 | XMS_ITS | Encounter Summary ---
Author Organization [facility] Address [address] [place] [address] Phone Care Team Providers Care Business Assistant Name Role Phone Quang Locke Unavailable [phone] Keith Craft MD Primary Care Provider [phone] Bri Rollins RN Unavailable Unavailable Silvio Schulte MD Unavailable [phone] Bri Rollins RN Unavailable Unavailable Werner Swift MD Unavailable Liz Capellan DO Primary Care Provider [phone] Reason for Visit * Reason Comments Medication Refill Encounter Details Date Type Department Care Team (Late st Contact Info) Description 08/17/2021 [facility]ill [facility] [address] [place] [address] Keith Craft MD #1 [place] [address] Medication Refill Social History Tobacco Use Types [...] suspected to have Coronavirus/COVID-19? No / Unsure 08/14/2021 1:02 PM CDT documented as of this encounter Miscellaneous Notes * Telephone Encounter - Gloria Cornejo RN - 08/17/2021 2:33 PM CDT ER Per nursing clinical judgement, provider to review and approve the medication(s) order(s) if appropriate. Requested Prescriptions Pending Prescriptions Disp Refills pantoprazole (PROTONIX) 40 MG Tablet Delayed Response [Pharmacy Med Name: PANTOPRAZOLE SODIUM 40MG TABLET DR] 30 Tablet 0 Sig: TAKE ONE (1) TABLET BY MOUTH DAILY. INDICATIONS: GASTROESOPHAGEAL REFLUX DISEASE WITH CURRENT SYMPTOMS There is no refill protocol information for this order documented in this encounter Plan of Treatment Upcoming Encounters Date Type Department Care Team (Late st Contact Info) Description 07/13/2024 1:30 PM BOW MAKER MACHINE TENDER Office Visit [facility] - Family Medicine - [place] #2 [place] [address] Liz Capellan, DO [address] [address] 07/20/2024 2:15 PM BOW MAKER MACHINE TENDER Office Visit [facility] Medical [facility] - Endocrinology - [place] #2 [place] [address] Ana Vivar N, FOOD RUNNER, JOB TRAINING SPECIALIST 2 [facility] [address] [place] [address] Yasmin Restrepo MD [address] [place] [address] 07/31/2024 1:00 PM BOW MAKER MACHINE TENDER [facility] [address] [place] [address] Werner Swift MD #2 [place] [address] Discharge Disposition: Discharged to home or Selfcare 08/03/2024 1:15 PM CDT [facility] - Pulmon[facility] & Sleep Medicine [facility] #2 [place] [address] Werner Swift MD #2 [place] [address] 09/02/2024 2:00 PM CDT [facility] 1 [place] [address] Werner Swift MD #2 [place] [address] Discharge Disposition: Discharged to home or Selfcare 10/09/2024 2:30 PM CDT [facility] #2 [place] [address] Liz Capellan, DO 2 [facility] [place] [facility] [address] [place] [address] documented as of this encounter Goals Goal [...] Zones/Action plan education. I will notify my Chaplain Resident if my symptoms fall in the y [...] 19 04/20/2022 04/20/2022 04/30/2022 12:1 8 AM BOW MAKER MACHINE TENDER COVID - 19 07/18/2022 07/18/2022 07/28/2022 12:1 6 AM BOW MAKER MACHINE TENDER COVID - 19 08/21/2022 08/21/2022 08/22/2022 8:31 AM CDT Respiratory Rule Out - RPA 08/21/2022 08/21/2022 0 08/22/2022 3:21 PM CDT COVID - 19 04/18/2023 04/18/2023 04/28/2023 12:1 6 AM BOW MAKER MACHINE TENDER COVID - 19 07/13/2023 07/13/2023 07/23/2023 12:1 6 AM BOW MAKER MACHINE TENDER Respiratory Rule Out - RPA 03/17/2024 03/17/2024 1 3:36 PM CDT COVID - 19 04/27/2024 04/27/2024 04/27/2024 2:19 PM BOW MAKER MACHINE TENDER Assessment Noted Time PHQ-9 Depression Total Score: 1 03/07/20 10:29 AM CDT documented as of this encounter Care Teams Business Assistant Relationship Specialty Start Date End Date Keith Craft MD PCP - General Family Medicine 01/14/19 12/26/23 Liz Capellan DO [address] [address] PCP - General Family Medicine 12/27/23 Quang Locke DO Gastroenterology 01/18/16 Bri Rollins RN [place] Chaplain Resident 03/07/21 05/22/23 [place] [id number] [address] 05/25/21 Bri Rollins RN [place] Nurse Chaplain Resident 03/07/21 05/23/23 Werner Switf MD #2 [place] [address] Consulting Physician Pulmonary Disease 01/30/22 documented as of this encounter
--- OUTSIDE RECORDS SUMMARY | 2024-07-10 13:45 | XMS_ITS | Encounter Summary ---
Author Organization [facility] Address [address] [place] [address] Phone Care Team Providers Care Molder Offbearer Name Role Phone Quang Locke Unavailable [phone] Keith Craft MD Primary Care Provider [phone] Bri Rollins RN Unavailable Unavailable Silvio Schulte MD Unavailable [phone] Bri Rollins RN Unavailable Unavailable Werner Swift MD Unavailable Liz Capellan DO Primary Care Provider [phone] Reason for Visit * Reason Comments Medication Refill Encounter Details Date Type Department Care Team (Late st Contact Info) Description 08/07/2021 Refill [facility] - [facility] Medicine [facility] #2 [place] [address] Keith Craft MD [address]1 [place] [address] Medication Refill Social History Tobacco Use Types [...] have Coronavirus / COVID-19? No / Unsure 07/31/2021 3:41 PM RIVET THROWER documented as of this encounter Miscellaneous Notes * Telephone Encounter - Gloria Cornejo RN - 08/08/2021 10:31 AM CDT PDMP 07/11/21 Medication failed the protocol, provider to review and approve the medication order if appropriate. Requested Prescriptions Pending Prescriptions Disp Refills HYDROcodone-acetaminophen (NORCO) 7.5-325 MG Tablet [Pharmacy Med Name: HYDROCODONE/ACETAMINOPHEN 7.5-325 TABLET] 30 Tablet 0 Sig: TAKE ONE (1) TABLET BY MOUTH EVERY DAY NEEDED FOR MODERATE OR MORE SEVERE PAIN Not Delegated - Opioid Combinations Protocol Failed - 08/07/2021 1:35 PM Failed - This refill cannot be delegated Passed - Visit with relevant provider in past 12 months or upcoming 90 days Recent Visits Date Type Provider Dept 07/31/21 Office Visit Keith Craft MD [facility] 05/25/21 Office Visit Marcin Anderson APRN, ETIQUETTE TEACHER [facility] [place] 05/05/21 Office Visit Brie Denis, PAC [facility] [place] 04/14/21 Office Visit Keith Craft MD [facility] 03/23/21 Office Visit Keith Craft MD [facility] 02/07/21 Office Visit Keith Craft MD [facility] 02/03/21 Office Visit Brie Denis, PAC [facility] 01/12/21 Office Visit [facility] 10/12/20 Office Visit Keith Craft MD [facility] [place] 10/04/20 Office Visit Keith Craft MD [facility] Showing recent visits within past 365 days and meeting all other requirements Future Appointments Date Type Provider Dept 08/14/21 Appointment [facility] MD [facility] Showing future appointments within next 90 days and meeting all other requirements documented in this encounter Plan of Treatment Upcoming Encounters Date Type Department Care Team (Late st Contact Info) Description 07/13/2024 1:30 PM RIVET THROWER Office Visit [facility] - Family Medicine - [place] #2 [place] [address] Liz Capellan, DO [address] [address] 07/20/2024 2:15 PM RIVET THROWER Office Visit [facility] - Endocrinology - [place] #2 [place] [address] Ana Vivar, ROUTE AIDE, ETIQUETTE TEACHER [address] [address] Yasmin Restrepo MD #[address] [address] 07/31/2024 1:00 PM RIVET THROWER [facility] [address] [place] [address] Werner Swift MD [address]2 [place] [address] Discharge Disposition: Discharged to home or Selfcare 08/03/2024 1:15 PM CDT Office Visit [facility] - Pulmonology & Sleep Medicine [facility] #2 [place] [address] Werner Swift MD #2 [place] [address] 09/02/2024 2:00 PM CDT Appointment [facility] Res[facility] Therapy 1 [place] [address] Werner Swift MD [address]2 [place] [address] Discharge Disposition: Discharged to home or Selfcare 10/09/2024 2:30 PM CDT Office Visit [facility] Family Medicine [facility] #2 [place] [address] Liz Capellan, DO [address] [address] documented as of this encounter Goals Goal [...] Zones/Action plan education. I will notify my Cut Out Marker if my symptoms fall in the y ellow zone . I will consider receiving an influenza and pneumonia vaccination, if applicable. -I will call the office if I experience any symptoms listed above to discuss at home management options. documented as of this encounter Visit Diagnoses Diagnosis Chronic low back pain, unspecified back pain laterality, unspecified whether sciatica present- Primary documented in this encounter Additional Health Concerns Infection Onset Date Last Indicated Resolved Time COVID - 19 10/19/2021 10/19/2021 10/20/2021 7:45 AM CDT Respiratory Rule Out - RPA 10/19/2021 10/19/2021 0 10/20/2021 2:10 PM CDT Stenotrophomonas maltophilia Comment:Must have a follow up respiratory sample to remove isolation flag. 10/20/2021 10/20/2021 COVID - 19 04/20/2022 04/20/2022 04/30/2022 12:1 8 AM RIVET THROWER COVID - 19 07/18/2022 07/18/2022 07/28/2022 12:1 6 AM RIVET THROWER COVID - 19 08/21/2022 08/21/2022 08/22/2022 8:31 AM CDT Respiratory Rule Out - RPA 08/21/2022 08/21/2022 0 08/22/2022 3:21 PM CDT COVID - 19 04/18/2023 04/18/2023 04/28/2023 12:1 6 AM RIVET THROWER COVID - 19 07/13/2023 07/13/2023 07/23/2023 12:1 6 AM RIVET THROWER Respiratory Rule Out - RPA 03/17/2024 03/17/2024 1 3:36 PM CDT COVID - 19 04/27/2024 04/27/2024 04/27/2024 2:19 PM RIVET THROWER Assessment Noted Time PHQ-9 Depression Total Score: 1 03/07/20 21 10:29 AM CDT documented as of this encounter Care Teams Molder Offbearer Relationship Specialty Start Date End Date Keith Craft MD PCP - General Family Medicine 01/14/19 12/26/23 Liz Capellan DO [address] [address] PCP - General Family Medicine 12/27/23 Quang Locke DO Gastroenterology 01/18/16 Bri Rollins, RN [place] Cut Out Marker 03/07/21 05/22/23 [place] [id number] [address] 05/25/21 Bri Rollins, RN [place] Nurse Cut Out Marker 03/07/21 05/23/23 Werner Swift MD [address]2 [place] [address] Consulting Physician Pulmonary Disease 01/30/22 documented as of this encounter
--- OUTSIDE RECORDS SUMMARY | 2024-07-10 13:45 | XMS_ITS | Encounter Summary ---
Author Organization [facility] Address [address] [place] [address] Phone Care Team Providers Care Primer Waterproofing Machine Adjuster Name Role Phone Quang Locke Unavailable [phone] Keith Craft MD Primary Care Provider [phone] Bri Rollins RN Unavailable Unavailable Silvio Schulte MD Unavailable [phone] Bri Rollins RN Unavailable Unavailable Werner Swift MD Unavailable Liz Capellan DO Primary Care Provider [phone] Reason for Visit * Reason Comments Medication Refill Encounter Details Date Type Department Care Team (Late st Contact Info) Description 05/18/2021 Refill [facility] Medicine [facility] #2 [place] [address] Keith Craft MD [address] [place] [address] Medication Refill Social History Tobacco Use Types [...] COVID-19? No / Unsure 05/05/2021 3:02 PM APPLICATION DESIGN ENGINEER documented as of this encounter Miscellaneous Notes * Telephone Encounter - Gloria Cornejo RN - 05/18/2021 9:52 AM CST Medication warning Per nursing clinical judgement, provider to review and approve the medication(s) order(s) if appropriate. Requested Prescriptions Pending Prescriptions Disp Refills Januvia 100 MG Tablet [Pharmacy Med Name: JANUVIA 100 MG TABLET] 90 Tablet 3 Sig: TAKE 1 TABLET BY MOUTH EVERY DAY DPP-4 Inhibitors Protocol Passed - 05/18/2021 9:51 AM Passed - Visit with relevant provider in past 6 months or upcoming 90 days Recent Visits Date Type Provider Dept 05/05/21 Office Visit Brie Denis PAC [facility] 04/14/21 Office Visit Keith Craft MD [facility] 03/23/21 Office Visit Keith Craft MD [facility] 02/07/21 Office Visit Keith Craft MD [facility] 02/03/21 Office Visit Brie Denis PAC [facility] 01/12/21 Office Visit Keith Craft MD [facility] Showing recent visits within past 182 days and meeting all other requirements Future Appointments Date Type Provider Dept 08/14/21 Appointment Keith Craft MD [facility] Showing future appointments within next 90 days and meeting all other requirements Passed - HgA1C on record in the past 6 months HGB-A1C Date Value Ref Range Status 04/18/2021 6.3 (H) 4.0 - 6.0 % Final Passed - GFR on record in past 6 months GFR, EST. NONAFRICAN Date Value Ref Range Status 04/18/2021 >60 >=60 Final ICATION DESIGN ENGINEER documented in this encounter Plan of Treatment Upcoming Encounters Date Type Department Care Team (Late st Contact Info) Description 07/13/2024 1:30 PM APPLICATION DESIGN ENGINEER Office Visit [facility] - Family Medicine - [place] [address]2 [place] [address] Liz Capellan L, DO [address] [address] 07/20/2024 2:15 PM APPLICATION DESIGN ENGINEER [facility] #2 [place] [address] Ana Vivar N, WASH AND GREASER, GYNECOLOGIST 2 [facility] [address] [place] [address] Yasmin Restrepo MD #[address] [address] 07/31/2024 1:00 PM APPLICATION DESIGN ENGINEER [facility] [address] [place] [address] Werner Swift MD [address]2 [place] [address] Discharge Disposition: Discharged to home or Selfcare 08/03/2024 1:15 PM CDT [facility] #2 [place] [address] Werner Swift MD [address]2 [place] [address] 09/02/2024 2:00 PM CDT [facility] 1 [place] [address] Werner Swift MD #2 [place] [address] Discharge Disposition: Discharged to home or Selfcare 10/09/2024 2:30 PM CDT Office [facility] - Family [facility] #2 [place] [address] Liz Capellan, DO [address] [address] documented as of this encounter Goals Goal [...] Zones/Action plan education. I will notify my Sommelier if my symptoms fall in the y ellow zone . I will consider receiving an influenza and pneumonia vaccination, if applicable. -I will call the office if I experience any symptoms listed above to discuss at home management options. documented as of this encounter Visit Diagnoses Diagnosis Type 2 diabetes mellitus with diabetic neuropathy, unspecified (HCC) documented in this encounter Additional Health Concerns Infection Onset Date Last Indicated Resolved Time COVID - 19 07/23/2021 07/23/2021 07/24/2021 6:31 AM APPLICATION DESIGN ENGINEER COVID - 19 10/19/2021 10/19/2021 10/20/2021 7:45 AM CDT Respiratory Rule Out - RPA 10/19/2021 10/19/2021 0 10/20/2021 2:10 PM CDT Stenotrophomonas maltophilia Comment:Must have a follow up respiratory sample to remove isolation flag. 10/20/2021 10/20/2021 COVID - 19 04/20/2022 04/20/2022 04/30/2022 12:1 8 AM APPLICATION DESIGN ENGINEER COVID - 19 07/18/2022 07/18/2022 07/28/2022 12:1 6 AM APPLICATION DESIGN ENGINEER COVID - 19 08/21/2022 08/21/2022 08/22/2022 8:31 AM CDT Respiratory Rule Out - RPA 08/21/2022 08/21/2022 0 08/22/2022 3:21 PM CDT COVID - 19 04/18/2023 04/18/2023 04/28/2023 12:1 6 AM APPLICATION DESIGN ENGINEER COVID - 19 07/13/2023 07/13/2023 07/23/2023 12:1 6 AM APPLICATION DESIGN ENGINEER Respiratory Rule Out - RPA 03/17/2024 03/17/2024 1 3:36 PM CDT COVID - 19 04/27/2024 04/27/2024 04/27/2024 2:19 PM APPLICATION DESIGN ENGINEER Assessment Noted Time PHQ-9 Depression Total Score: 1 03/07/20 21 10:29 AM CDT documented as of this encounter Care Teams Primer Waterproofing Machine Adjuster Relationship Specialty Start Date End Date Keith Craft MD PCP - General Family Medicine 01/14/19 12/26/23 Liz Capellan DO 2 [facility] [place] [address] [address] PCP - General Family Medicine 12/27/23 Quang Locke DO Gastroenterology 01/18/16 Bri Rollins, [place] Sommelier 03/07/21 05/22/23 [place] [id number] [address] 05/25/21 Bri Rollins, [place] Nurse Sommelier 03/07/21 05/23/23 Werner Swift MD #2 [place] [address] Consulting Physician Pulmonary Disease 01/30/22 documented as of this encounter
--- OUTSIDE RECORDS SUMMARY | 2024-07-10 13:46 | XMS_ITS | Encounter Summary ---
Author Organization [facility] Address [address] [place] [address] Phone Care Team Providers Care Flatwork Ironer Name Role Phone Quang Locke Unavailable [phone] Keith Craft MD Primary Care Provider [phone] Bri Rollins RN Unavailable Unavailable Silvio Schulte MD Unavailable [phone] Bri Rollins RN Unavailable Unavailable Werner Swift MD Unavailable Liz Capellan DO Primary Care Provider [phone] Reason for Visit * Reason Comments Medication Refill Encounter Details Date Type Department Care Team (Late st Contact Info) Description 04/17/2020 Refill [facility] Family Medicine [facility] #2 [place] [address] Keith Craft MD [address]1 [place] [address] Medication Refill Social History Tobacco Use Types [...] Telephone Encounter - Gloria Cornejo RN - 04/18/2020 12:04 PM CST Medication failed the protocol, provider to review and approve the medication order if appropriate. Requested Prescriptions Pending Prescriptions Disp Refills theophylline CR, 12 hour, (THEODUR) 300 MG TABLET SR 12 HR [Pharmacy Med Name: THEOPHYLLINE ER 300 MG TAB] 180 Tab 0 Sig: TAKE 1 TABLET BY MOUTH EVERY 12 HOURS Pulmonology: Theophyllines Passed - 04/17/2020 2:02 PM 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 [facility] Keith Lemus MD 10 months ago COPD exacerbation (HCC) [facility] Brie Vieira PAC 12 months ago Type 2 diabetes mellitus with diabetic neuropathy, with long-term current use of insulin (HCC) [facility] Keith Lemus MD Upcoming Appointments Future Appointments In 1 month Keith Craft MD [facility] CONVEY[facility] ATTEND[facility] - Recent and Past Visits Recent Visits Date Type Provider Dept 02/02/20 Office Visit Keith Craft MD [facility] 11/02/19 Office Visit Keith Craft MD [facility] 07/27/19 Office Visit Keith Craft MD [facility] 06/10/19 Office Visit Brie Denis PAC [facility] 04/20/19 Office Visit Keith Craft MD [facility] 01/14/19 Office Visit Keith Craft MD [facility] Showing recent visits within past 460 days with a meds authorizing provider and meeting all other requirements Future Appointments Date Type Provider Dept 06/07/20 Appointment Keith Craft MD [facility] Showing future appointments within next 90 days with a meds authorizing provider and meeting all other requirements Passed - Last BP in normal range BP Readings from Last 1 Encounters: 02/02/20 122/66 Passed - Theophylline (serum) in normal range and within 360 days THEOPHYLLINE Date Value Ref Range Status 07/27/2019 14 10 - 20 mcg/mL Final gabapentin (NEURONTIN) 800 MG Tablet [Pharmacy Med Name: GABAPENTIN 800 MG TABLET] 270 Tab 3 Sig: TAKE 1 TABLET BY MOUTH THREE TIMES A DAY Neurology: Anticonvulsants Passed - 04/17/2020 2:02 PM 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 [facility] Keith Lemus MD 10 months ago COPD exacerbation (HCC) [facility] Brie Vieira PAC 12 months ago Type 2 diabetes mellitus with diabetic neuropathy, with long-term current use of insulin (HCC) [facility] Keith Lemus MD Upcoming Appointments Future Appointments In 1 month Keith Craft MD [facility] Maximiliano Tesfaye [facility] CONVEYOR ATTENDANT - Recent and Past Visits Recent Visits Date Type Provider Dept 02/02/20 Office Visit Keith Craft MD [facility] 11/02/19 Office Visit Keith Craft MD [facility] 07/27/19 Office Visit Keith Craft MD [facility] 06/10/19 Office Visit Brie Denis PAC [facility] 04/20/19 Office Visit Keith Craft MD [facility] 01/14/19 Office Visit Keith Craft MD [facility] Showing recent visits within past 460 days with a meds authorizing provider and meeting all other requirements Future Appointments Date Type Provider Dept 06/07/20 Appointment Keith Craft MD [facility] Showing future appointments within next 90 days with a meds authorizing provider and meeting all other requirements Xigduo XR 5-1000 MG TABLET SR 24 HR [Pharmacy Med Name: XIGDUO XR 5 MG-1,000 MG TABLET] 180 Tab 0 Sig: TAKE 1 TABLET BY MOUTH TWICE A DAY Off-Protocol Failed - 04/17/2020 2:02 PM Failed - Medication not assigned to a protocol, review manually. 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 [facility] Keith Lemus MD 10 months ago COPD exacerbation (HCC) [facility] Brie Vieira PAC 12 months ago Type 2 diabetes mellitus with diabetic neuropathy, with long-term current use of insulin (HCC) [facility] Keith Lemus MD Upcoming Appointments Future Appointments In 1 month Keith Craft MD [facility] CONVEYOR ATTENDANT - Recent and Past Visits Recent Visits Date Type Provider Dept 02/02/20 Office Visit Keith Craft MD [facility] 11/02/19 Office Visit Keith Craft MD [facility] 07/27/19 Office Visit Keith Craft MD [facility] 06/10/19 Office Visit Brie Denis, NICOLE [facility] 04/20/19 [facility] Office Visit Keith Craft MD [facility] Showing recent visits within past 460 days with a meds authorizing provider and meeting all other requirements Future Appointments Date Type Provider Dept 06/07/20 Appointment Keith Craft MD [facility] Showing future appointments within next 90 days with a meds authorizing provider and meeting all other requirements STMENT BANKING MANAGER documented in this encounter Plan of Treatment Upcoming Encounters Date Type Department Care Team (Late st Contact Info) Description 07/13/2024 1:30 PM INVESTMENT BANKING MANAGER Office Visit [facility] - Family Medicine - [place] #2 [place] [address] Liz Capellan, DO [address] [address] 07/20/2024 2:15 PM INVESTMENT BANKING MANAGER Office Visit [facility] - Endocrinology - [place] #[address] [facility] [phone] Ana Vivar, GERIATRIC ASSISTANT, ABRASIVES SALES REPRESENTATIVE [address] [address] Yasmin Restrepo MD #[address] [place] [address] 07/31/2024 1:00 PM INVESTMENT BANKING MANAGER [facility] [address] [place] [address] Werner Swift MD #2 [facility] [address] Discharge Disposition: Discharged to home or Selfcare 08/03/2024 1:15 PM CDT Office Visit [facility] - Pulmonology & Sleep Medicine [facility] #2 [place] [address] Werner Swift MD #2 [place] [address] 09/02/2024 2:00 PM CDT [facility] 1 [place] [address] Werner Swift MD #2 [place] [address] Discharge Disposition: Discharged to home or Selfcare 10/09/2024 2:30 PM CDT Office Visit [facility] - Family Medicine [facility] #2 [place] [address] Liz Capellan, DO [address] [address] documented as of this encounter Visit Diagnoses [...] - 19 07/23/2021 07/23/2021 07/24/2021 6:31 AM INVESTMENT BANKING MANAGER COVID - 19 10/19/2021 10/19/2021 10/20/2021 7:45 AM CDT Respiratory Rule Out - RPA 10/19/2021 10/19/2021 0 10/20/2021 2:10 PM CDT Stenotrophomonas maltophilia Comment:Must have a follow up respiratory sample to remove isolation flag. 10/20/2021 10/20/2021 COVID - 19 04/20/2022 04/20/2022 04/30/2022 12:1 8 AM INVESTMENT BANKING MANAGER COVID - 19 07/18/2022 07/18/2022 07/28/2022 12:1 6 AM INVESTMENT BANKING MANAGER COVID - 19 08/21/2022 08/21/2022 08/22/2022 8:31 AM CDT Respiratory Rule Out - RPA 08/21/2022 08/21/2022 0 08/22/2022 3:21 PM CDT COVID - 19 04/18/2023 04/18/2023 04/28/2023 12:1 6 AM INVESTMENT BANKING MANAGER COVID - 19 07/13/2023 07/13/2023 07/23/2023 12:1 6 AM INVESTMENT BANKING MANAGER Respiratory Rule Out - RPA 03/17/2024 03/17/2024 1 3:36 PM CDT COVID - 19 04/27/2024 04/27/2024 04/27/2024 2:19 PM INVESTMENT BANKING MANAGER Assessment Noted Time PHQ-9 Depression Total Score: 1 06/10/19 20 1:03 PM INVESTMENT BANKING MANAGER documented as of this encounter Care Teams Flatwork Ironer Relationship Specialty Start Date End Date Keith Craft MD PCP - General Family Medicine 01/14/19 12/26/23 Liz Capellan DO [address] [address] PCP - General Family Medicine 12/27/23 Quang Locke DO Gastroenterology 01/18/16 rBi Rollins RN [place] Advisory Services Associate 03/07/21 05/22/23 [place] [address] [place] [address] 05/25/21 Bri Rollins RN [place] Nurse Advisory Services Associate 03/07/21 05/23/23 Werner Swift MD #2 [place] [address] Consulting Physician Pulmonary Disease 01/30/22 documented as of this encounter
--- OUTSIDE RECORDS SUMMARY | 2024-07-10 13:46 | XMS_ITS | Encounter Summary ---
Author Organization [facility] Address [address] [place] [address] Phone Care Team Providers Care Hamper Maker Machine Name Role Phone Quang Locke Unavailable [phone] Keith Craft MD Primary Care Provider [phone] Bri Rollins RN Unavailable Unavailable Silvio Schulte MD Unavailable [phone] Bri Rollins RN Unavailable Unavailable Werner Swift MD Unavailable Liz Capellan DO Primary Care Provider [phone] Reason for Visit * Reason Comments Medication Refill Encounter Details Date Type Department Care Team (Late st Contact Info) Description 11/05/2019 Refill [facility] [address] [place] [address] Keith Craft MD [address]1 [place] [address] Medication Refill Social History Tobacco Use Types [...] have Coronavirus / COVID-19? No / Unsure 11/02/2019 1:06 PM CDT documented as of this encounter Miscellaneous Notes * Telephone Encounter - Kary Cintron RN - 11/05/2019 9:23 AM CDT Requested Prescriptions Pending Prescriptions Disp Refills diazePAM (VALIUM) 10 MG Tablet [Pharmacy Med Name: DIAZEPAM 10 MG TABLET] 30 Tab 0 Sig: TAKE 1 TABLET BY MOUTH EVERY DAY Not Delegated - Psychiatry: Anxiolytics/Hypnotics Failed - 11/05/2019 9:21 AM Failed - This refill cannot be delegated Passed - Valid encounter within last 6 months Past Office Visits Recent Outpatient Visits 3 days ago Chronic prescription opiate use [facility] Keith Craft MD 3 months ago 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 [facility] Keith Craft MD 4 months ago COPD exacerbation (HCC) [facility] Brie Denis PAC 6 months ago Type 2 diabetes mellitus with diabetic neuropathy, with long-term current use of insulin ([facility]) [facility] Keith Elizalde MD 9 months ago Type 2 diabetes mellitus with diabetic neuropathy, with long-term current use of insulin ([facility]) [facility] Keith Craft MD Upcoming Appointments Future Appointments In 4 days [facility]; [facility] In 4 days [facility], [facility] In 4 days [facility]HCECHO1 [facility], [facility] In 2 months Keith Craft MD [facility] PHYSICIAN [facility] FAMILY [facility] documented in this encounter Plan of Treatment Upcoming Encounters Date Type Department Care Team (Late st Contact Info) Description 07/13/2024 1:30 PM HYPERION ANALYST Office Visit [facility] - Family Medicine - [place] [address] [place] [address] Liz Capellan L, DO 2 [facility] [address] [place] [address] 07/20/2024 2:15 PM HYPERION ANALYST Office Visit [facility] - Endocrinology - [place] [address] [place] [address] Ana Vivar, PICK UP ATTENDANT, TANNERY GUMMER 2 [facility] [address] [place] [address] Yasmin Restrepo MD #[address] [phone] 07/31/2024 1:00 PM HYPERION ANALYST [facility]ointment [facility] [address] [place] [address] Werner Swift MD #2 [place] [address] Discharge Disposition: Discharged to home or Selfcare 08/03/2024 1:15 PM CDT Office Visit [facility] - Pulmonology & Sleep Medicine - [place] [address] [place] [address] Werner Swift MD #2 [place] [address] 09/02/2024 2:00 PM CDT Appointment [facility] Respiratory Therapy 1 [place] [address] Werner Swift MD [address]2 [place] [address] Discharge Disposition: Discharged to home or Selfcare 10/09/2024 2:30 PM CDT Office Visit [facility] Family [facility] [address] [place] [address] Liz Capellan, DO [address] [address] documented as of this encounter Visit Diagnoses Diagnosis Anxiety and depression Dysthymic disorder documented in this encounter Additional Health Concerns Infection Onset Date Last Indicated Resolved Time COVID - 19 01/25/2021 01/25/2021 01/31/2021 8:10 AM CDT Respiratory Rule Out - RPA 01/30/2021 01/30/2021 0 02/01/2021 12:45 AM CDT COVID - 19 07/23/2021 07/23/2021 07/24/2021 6:31 AM HYPERION ANALYST COVID - 19 10/19/2021 10/19/2021 10/20/2021 7:45 AM CDT Respiratory Rule Out - RPA 10/19/2021 10/19/2021 0 10/20/2021 2:10 PM CDT Stenotrophomonas maltophilia Comment:Must have a follow up respiratory sample to remove isolation flag. 10/20/2021 10/20/2021 COVID - 19 04/20/2022 04/20/2022 04/30/2022 12:1 8 AM HYPERION ANALYST COVID - 19 07/18/2022 07/18/2022 07/28/2022 12:1 6 AM HYPERION ANALYST COVID - 19 08/21/2022 08/21/2022 08/22/2022 8:31 AM CDT Respiratory Rule Out - RPA 08/21/2022 08/21/2022 0 08/22/2022 3:21 PM CDT COVID - 19 04/18/2023 04/18/2023 04/28/2023 12:1 6 AM HYPERION ANALYST COVID - 19 07/13/2023 07/13/2023 07/23/2023 12:1 6 AM HYPERION ANALYST Respiratory Rule Out - RPA 03/17/2024 03/17/2024 1 3:36 PM CDT COVID - 19 04/27/2024 04/27/2024 04/27/2024 2:19 PM HYPERION ANALYST Assessment Noted Time PHQ-9 Depression Total Score: 1 06/10/19 20 1:03 PM HYPERION ANALYST documented as of this encounter Care Teams Hamper Maker Machine Relationship Specialty Start Date End Date Keith Craft MD PCP - General Family Medicine 01/14/19 12/26/23 Liz Capellan DO [address] [id number] PCP - General Family Medicine 12/27/23 Quang Locke DO Gastroenterology 01/18/16 Bri Rollins RN [place] Power Cleaner Operator 03/07/21 05/22/23 [place] [address] [address] 05/25/21 Bri Rollins RN [place] Nurse Power Cleaner Operator 03/07/21 05/23/23 Werner Swift MD #2 [place] [address] Consulting Physician Pulmonary Disease 01/30/22 documented as of this encounter
--- OUTSIDE RECORDS SUMMARY | 2024-07-10 13:46 | XMS_ITS | Clinical Summary ---
Author Organization [facility] Address [address] [place] [address] Care Team Providers Care Equipment Coordinator Name Role Phone Unavailable Primary Care Provider Unavailabl e Source Comments [facility] [employer] [employer],non-owned Affiliates and Associated Physician Practices is amultiple site organization consisting of ambulatory clinics and hospital sitesin [place], [place], [place] and [place]. This disclosure is being madepursuant to the Care Everywhere program and may not contain all information available regarding this patient. Last updated 18.[facility] [employer] Social History Tobacco Use Types Packs/Day Years Used Date Smoking Tobacco: Never Assessed Sex and Gender Information Value Date Recorded Sex Assigned at Not on file Gender Identity Not on file Sexual Orientation Not on file Plan of Treatment Health Maintenance Due Date Last Done Comments BONE DENSITY TESTING 1950 COLOGUARD (AGES 45-75) - COL ON CA SCREENING 1949 COLON MONITORING 1949 COLONOSCOPY - COLON CA SCREENING 1949 CT COLONOGRAPHY - COLON CA SCREENING 1950 Colorectal Cancer Screening 1949 FIT - COLON CA SCREENING 1949 FLEX SIG - COLON CA SCREENING 1949 LIPID TESTING 1949 MAMMOGRAM 1950 MEDICARE AWV 12 MONTHS 1949 HEPATITIS C SCREENING 09/14/1967 DTAP/TDAP/TD VACCINES (1 - Tdap) 1968 PNEUMOCOCCAL VACCINE 50+ (1 of 1 - PCV) 09/19/1999 ZOSTER VACCINE (1 of 2) 09/19/1999 COVID-19 VACCINE ( - 2023-2 5 season) 2024 INFLUENZA VACCINE (#1) 2024 DEPRESSION SCREENING 05/27/2024 Respiratory Syncytial Virus (RSV) Vaccine Pt: or over 60 yrs (1 - 1-dose 75+ series) 2024 HEPATITIS B VACCINE Aged Out No longe r eligible based on patient's age to complete this topic HIB VACCINE Aged Out No longer eligi ble based on patient's age to complete this topic HPV VACCINE Aged Out No longer eligi ble based on patient's age to complete this topic MENINGOCOCCAL (Group B) VACCINE Aged Out No longer eligible based on patient's age to complete this topic MENINGOCOCCAL VACCINE Aged Out No delisa kem eligible based on patient's age to complete this topic Insurance Payer Benefit Plan / Group Subscriber ID Effective Dates Phone Address Type MEDICARE MANAGED CARE PLAN GENERIC MEDICARE ADV MERIDIAN COMPLETE MEDICARE ADV OUT OF NE [id number] Effective for all dates [address] [place] [address] Medicare-Ma naged Care MEDICARE WPS MEDICARE PART B [id number] 09/24/2010-Pres ent [address] [address] [place] [address] Medicare ANTHEM BLUE CROSS TRADITIONAL [id number] Effective for all dates [address] [place] [address] PPO MEDICAID - OUT OF STATE MEDICAID - [place] PUBLIC AID [id number] Effective for all dates [address] [address] [place] [address] Medicaid [place] [facility] MEDICAID [id number] Effective for all dates ATTN CLAIMS DEPARTMENT [address] [place] [address] Medicaid Managed Care
--- OUTSIDE RECORDS SUMMARY | 2024-07-10 13:46 | XMS_ITS | Patient Health Summary ---
Author Organization [facility] Address [address] [place] [address] Care Team Providers Care Electrical Estimator Name Role Phone Unavailable Primary Care Provider Unavailabl e Note from [facility],non-owned Affiliates and Associated Physician Practices is amultiple site organization consisting of ambulatory clinics and hospital sitesin [place], [place] and [place]. This disclosure is being madepursuant to the Care Everywhere program and may not contain all information available regarding this patient. Last updated 18.[facility] [employer] Social History Tobacco Use Types Packs/Day Years Used Date Smoking Tobacco: Never Assessed Sex and Gender Information Value Date Recorded Sex Assigned at Not on file Gender Identity Not on file Sexual Orientation Not on file
--- OUTSIDE RECORDS SUMMARY | 2024-07-10 13:46 | XMS_ITS | Encounter Summary ---
Author Organization [facility] Address [address] [place] [address] Phone Care Team Providers Care Industrial Economist Name Role Phone Quang Locke Unavailable [phone] Keith Craft MD Primary Care Provider [phone] Bri Rollins RN Unavailable Unavailable Silvio Schulte MD Unavailable [phone] Bri Rollins RN Unavailable Unavailable Werner Swift MD Unavailable Liz Capellan DO Primary Care Provider [phone] Reason for Visit * Reason Comments Medication Refill Encounter Details Date Type Department Care Team (Late st Contact Info) Description 07/28/2020 Refill [facility] [address] [place] [address] Keith Craft MD [address]1 [place] [address] Medication Refill Social History Tobacco Use Types [...] COVID-19? No / Unsure 07/30/2020 3:25 PM BENCH WORKER HOLLOW HANDLE documented as of this encounter Miscellaneous Notes * Telephone Encounter - Gloria Cornejo RN - 07/28/2020 2:08 PM CST [place] PDMP 07/03/20 Medication failed the protocol, provider to review and approve the medication order if appropriate. Requested Prescriptions Pending Prescriptions Disp Refills diazePAM (VALIUM) 10 MG Tablet [Pharmacy Med Name: DIAZEPAM 10 MG TABLET] 30 Tablet 0 Sig: TAKE 1 TABLET BY MOUTH EVERY DAY Not Delegated - Psychiatry: Anxiolytics/Hypnotics Failed - 07/28/2020 10:13 AM Failed - This refill cannot be delegated Passed - Valid encounter within last 6 months Past Office Visits Recent Outpatient Visits 1 month ago Mixed hyperlipidemia [facility] - Keith Jenkins MD 3 months ago Pneumonia of right upper lobe due to infectious organism [facility] Keith Lemus MD 5 months ago Acute non-recurrent maxillary sinusitis [facility] Keith Lemus MD 8 months ago Chronic prescription opiate use [facility] Keith Lemus MD 1 year ago Coronary artery disease involving quinault coronary artery of quinault heart without angina pectoris [facility] Keith Lemus MD Upcoming Appointments Future Appointments In 2 days [facility] - [facility] In 2 months Keith Craft MD [facility] Family [facility], [facility] MORTISING MACHINE OPERATOR - Recent and Past Visits Recent Visits Date Type Provider Dept 06/07/20 Office Visit Keith Craft MD [facility] 04/25/20 Office Visit Keith Craft MD [facility] 02/02/20 Office Visit Keith Craft MD [facility] 11/02/19 Office Visit Keith Craft MD [facility] 07/27/19 Office Visit Keith Craft MD [facility] 06/10/19 Office Visit Brie Denis PAC [facility] Showing recent visits within past 460 days with a meds authorizing provider and meeting all other requirements Future Appointments Date Type Provider Dept 10/04/20 Appointment Keith Craft MD [facility] Showing future appointments within next 90 days with a meds authorizing provider and meeting all other requirements H WORKER HOLLOW HANDLE documented in this encounter Plan of Treatment Upcoming Encounters Date Type Department Care Team (Late st Contact Info) Description 07/13/2024 1:30 PM BENCH WORKER HOLLOW HANDLE Office Visit [facility] Family Medicine - [place] #2 [place] [address] Liz Capellan L, DO 2 [facility] [address] [place] [address] 07/20/2024 2:15 PM BENCH WORKER HOLLOW HANDLE Office Visit [facility] - Endocrinology - [place] #2 [place] [address] Ana Vivar, MUSICAL INSTRUMENTS ASSEMBLER, MILL BEAM FITTER 2 [facility] [address] [place] [address] Yasmin Restrepo MD #[address] [place] [phone] 07/31/2024 1:00 PM BENCH WORKER HOLLOW HANDLE Appointment [facility] [address] [place] [address] Werner Swift MD #2 [place] [address] Discharge Disposition: Discharged to home or Selfcare 08/03/2024 1:15 PM CDT Office Visit [facility] - Pulmonology & Sleep Medicine [facility] #2 [place] [address] Werner Swift MD #2 [place] [address] 09/02/2024 2:00 PM CDT [facility]ment [facility] 1 [place] [address] Werner Swift MD #2 [place] [address] Discharge Disposition: Discharged to home or Selfcare 10/09/2024 2:30 PM CDT Office Visit [facility] - Family Medicine - [place] #2 [place] [address] Liz Capellan, DO [address] [address] documented as of this encounter Visit Diagnoses Diagnosis Anxiety and depression Dysthymic disorder documented in this encounter Additional Health Concerns Infection Onset Date Last Indicated Resolved Time COVID - 19 01/25/2021 01/25/2021 01/31/2021 8:10 AM CDT Respiratory Rule Out - RPA 01/30/2021 01/30/2021 0 02/01/2021 12:45 AM CDT COVID - 19 07/23/2021 07/23/2021 07/24/2021 6:31 AM BENCH WORKER HOLLOW HANDLE COVID - 19 10/19/2021 10/19/2021 10/20/2021 7:45 AM CDT Respiratory Rule Out - RPA 10/19/2021 10/19/2021 0 10/20/2021 2:10 PM CDT Stenotrophomonas maltophilia Comment:Must have a follow up respiratory sample to remove isolation flag. 10/20/2021 10/20/2021 COVID - 19 04/20/2022 04/20/2022 04/30/2022 12:1 8 AM BENCH WORKER HOLLOW HANDLE COVID - 19 07/18/2022 07/18/2022 07/28/2022 12:1 6 AM BENCH WORKER HOLLOW HANDLE COVID - 19 08/21/2022 08/21/2022 08/22/2022 8:31 AM CDT Respiratory Rule Out - RPA 08/21/2022 08/21/2022 0 08/22/2022 3:21 PM CDT COVID - 19 04/18/2023 04/18/2023 04/28/2023 12:1 6 AM BENCH WORKER HOLLOW HANDLE COVID - 19 07/13/2023 07/13/2023 07/23/2023 12:1 6 AM BENCH WORKER HOLLOW HANDLE Respiratory Rule Out - RPA 03/17/2024 03/17/2024 1 3:36 PM CDT COVID - 19 04/27/2024 04/27/2024 04/27/2024 2:19 PM BENCH WORKER HOLLOW HANDLE Assessment Noted Time PHQ-9 Depression Total Score: 2 06/07/19 21 2:34 PM BENCH WORKER HOLLOW HANDLE documented as of this encounter Care Teams Industrial Economist Relationship Specialty Start Date End Date Keith Craft MD PCP - General Family Medicine 01/14/19 12/26/23 Liz Capellan DO [address] [address] PCP - General Family Medicine 12/27/23 Quang Locke DO Gastroenterology 01/18/16 Bri Rollins, KATEY [place] Soil Fertility Specialist 03/07/21 05/22/23 [place] [address] [address] 05/25/21 Bri Rollins RN [place] Nurse Soil Fertility Specialist 03/07/21 05/23/23 Werner Swift MD #2 [place] [address] Consulting Physician Pulmonary Disease 01/30/22 documented as of this encounter
--- OUTSIDE RECORDS SUMMARY | 2024-07-10 13:46 | XMS_ITS | Encounter Summary ---
Author Organization [facility] Address [address] [place] [address] Phone Care Team Providers Care Supervisor Machine Workers Name Role Phone Quang Locke Unavailable [phone] Keith Craft MD Primary Care Provider [phone] Bri Rollins RN Unavailable Unavailable Silvio Schulte MD Unavailable [phone] Bri Rollins RN Unavailable Unavailable Werner Swift MD Unavailable Liz Capellan DO Primary Care Provider Reason for Visit * Reason Comments Medication Refill Encounter Details Date Type Department Care Team (Late st Contact Info) Description 05/09/2020 Refill [facility] #2 [place] [address] Keith Craft MD #1 [place] [address] Medication Refill Social History Tobacco Use Types [...] have Coronavirus / COVID-19? No / Unsure 04/25/2020 1:42 PM ARCHITECTURE CONSULTANT documented as of this encounter Miscellaneous Notes * Telephone Encounter - Gloria Cornejo RN - 05/09/2020 2:16 PM CST Please address therapy warning Per nursing clinical judgement, provider to review and approve the medication(s) order(s) if appropriate. Requested Prescriptions Pending Prescriptions Disp Refills Januvia 100 MG Tablet [Pharmacy Med Name: JANUVIA 100 MG TABLET] 90 Tab 3 Sig: TAKE 1 TABLET BY MOUTH EVERY DAY Endocrinology: Diabetes - Incretin Enhancers Passed - 05/09/2020 9:29 AM Passed - Valid encounter within last 12 months Past Office Visits Recent Outpatient Visits 2 weeks ago Pneumonia of right upper lobe due to infectious organism [facility] - Keith Jenkins MD 3 months ago Acute non-recurrent maxillary sinusitis [facility] Keith Lemus MD 6 months ago Chronic prescription opiate use [facility] Keith Jenkins MD 9 months ago Coronary artery disease involving tribal coronary artery of tribal heart without angina pectoris [facility] Keith Lemus MD 11 months ago COPD exacerbation (HCC) [facility] Brie Vieira, NICOLE Upcoming Appointments Future Appointments In 4 weeks Keith Craft MD [facility] YULIA Tesfaye GAS PLUMBING INSPECTOR - Recent and Past Visits Recent Visits Date Type Provider Dept 04/25/20 Office Visit Keith Craft MD [facility] 02/02/20 Office Visit Keith Craft MD [facility] 11/02/19 Office Visit Keith Craft MD [facility] 07/27/19 Office Visit Keith Craft MD [facility] 06/10/19 Office Visit [facility] B[facility] Palma, [facility] [place] 04/20/19 Office Visit Keith Craft MD [facility] [place] Showing recent visits within past 460 days with a meds authorizing provider and meeting all other requirements Future Appointments Date Type Provider Dept 06/07/20 Appointment Keith Craft MD [facility] Showing future appointments within next 90 days with a meds authorizing provider and meeting all other requirements Passed - Last BP in normal range BP Readings from Last 1 Encounters: 04/25/20 104/62 ITECTURE CONSULTANT documented in this encounter Plan of Treatment Upcoming Encounters Date Type Department Care Team (Late st Contact Info) Description 07/13/2024 1:30 PM ARCHITECTURE CONSULTANT Office Visit [facility] - Family Medicine - [place] #2 [facility] [address] Liz Capellan L, DO 2 [facility] [address] [place] [address] 07/20/2024 2:15 PM ARCHITECTURE CONSULTANT Office Visit [facility] - Endocrinology - [place] #[address] [place] [address] Ana Vivar, HARPSICHORD MAKER, TECHNICAL SALES MANAGER 2 [facility] [address] [place] [address] Yasmin Restrepo MD #[address] [place] [address] 07/31/2024 1:00 PM ARCHITECTURE CONSULTANT [facility] [address] [place] [address] Werner Swift MD #2 [place] [address] Discharge Disposition: Discharged to home or Selfcare 08/03/2024 1:15 PM CDT Office Visit [facility] - Pulmonology & Sleep Medicine [facility] #2 [place] [address] Werner Swift MD #2 [place] [address] 09/02/2024 2:00 PM CDT Appointment [facility] Respiratory Therapy 1 [place] [address] Werner Swift MD #2 [place] [address] Discharge Disposition: Discharged to home or Selfcare 10/09/2024 2:30 PM CDT Office Visit [facility] - Family Medicine [facility] #2 [place] [address] Liz Capellan, DO [address] [address] documented as of this encounter Visit Diagnoses [...] - 19 07/23/2021 07/23/2021 07/24/2021 6:31 AM ARCHITECTURE CONSULTANT COVID - 19 10/19/2021 10/19/2021 10/20/2021 7:45 AM CDT Respiratory Rule Out - RPA 10/19/2021 10/19/2021 0 10/20/2021 2:10 PM CDT Stenotrophomonas maltophilia Comment:Must have a follow up respiratory sample to remove isolation flag. 10/20/2021 10/20/2021 COVID - 19 04/20/2022 04/20/2022 04/30/2022 12:1 8 AM ARCHITECTURE CONSULTANT COVID - 19 07/18/2022 07/18/2022 07/28/2022 12:1 6 AM ARCHITECTURE CONSULTANT COVID - 19 08/21/2022 08/21/2022 08/22/2022 8:31 AM CDT Respiratory Rule Out - RPA 08/21/2022 08/21/2022 0 08/22/2022 3:21 PM CDT COVID - 19 04/18/2023 04/18/2023 04/28/2023 12:1 6 AM ARCHITECTURE CONSULTANT COVID - 19 07/13/2023 07/13/2023 07/23/2023 12:1 6 AM ARCHITECTURE CONSULTANT Respiratory Rule Out - RPA 03/17/2024 03/17/2024 1 3:36 PM CDT COVID - 19 04/27/2024 04/27/2024 04/27/2024 2:19 PM ARCHITECTURE CONSULTANT Assessment Noted Time PHQ-9 Depression Total Score: 1 06/10/19 20 1:03 PM ARCHITECTURE CONSULTANT documented as of this encounter Care Teams Supervisor Machine Workers Relationship Specialty Start Date End Date Keith Craft MD PCP - General Family Medicine 01/14/19 12/26/23 Liz Capellan DO 2 [facility] [address] [address] PCP - General Family Medicine 12/27/23 Quang Locke DO Gastroenterology 01/18/16 Bri Rollins RN [place] Flat Knitter 03/07/21 05/22/23 [place] [address] [address] 05/25/21 Bri Rollins RN [place] Nurse Flat Knitter 03/07/21 05/23/23 Werner Swift MD #2 [place] [address] Consulting Physician Pulmonary Disease 01/30/22 documented as of this encounter
--- OUTSIDE RECORDS SUMMARY | 2024-07-10 13:46 | XMS_ITS | Referral Summary ---
Author Organization [facility] Address [address] [facility] [place] [address] Care Team Providers Care Inside Sales Professional Name Role Phone Unavailable Primary Care Provider Unavailabl e Source Comments [facility],non-owned Affiliates and Associated Physician Practices is amultiple site organization consisting of ambulatory clinics and hospital sitesin [place], [place], [place] and [place]. This disclosure is being madepursuant to the Care Everywhere program and may not contain all information available regarding this patient. Last updated 18.[facility] Social History Tobacco Use Types Packs/Day Years Used Date Smoking Tobacco: Never Assessed Sex and Gender Information Value Date Recorded Sex Assigned at Not on file Gender Identity Not on file Sexual Orientation Not on file Plan of Treatment Not on file Insurance Payer Benefit Plan / Group Subscriber ID Effective Dates Phone Address Type MEDICARE MANAGED CARE PLAN GENERIC MEDICARE ADV [place] [employer] MEDICARE ADV OUT OF [place] [id number] Effective for all dates [address] [place] [address] Medicare-[facility] MEDICARE WPS MEDICARE PART B [id number] 09/24/2010-Pres ent [address] [address] [place] [address] Medicare [facility] [id number] Effective for all dates [address] [place] [address] PPO MEDICAID - OUT OF STATE MEDICAID [facility] PUBLIC AID [id number] Effective for all dates [address] [address] [place] [address] Medicaid [facility] MEDICAID [id number] Effective for all dates ATTN CLAIMS DEPARTMENT [address] [place] [address] Medicaid Managed Care Kary Bellamy Personal/Family Self 1950 ([place]) [address] [place] [address]
--- OUTSIDE RECORDS SUMMARY | 2024-07-10 13:46 | XMS_ITS | Encounter Summary ---
Author Organization [facility] Address [address] [place] [address] Phone Care Team Providers Care Baggage Porter Name Role Phone Quang Lcoke Unavailable [phone] Keith Craft MD Primary Care Provider [phone] Bri Rollins RN Unavailable Unavailable Silvio Schulte MD Unavailable [phone] Bri Rollins RN Unavailable Unavailable Werner Swift MD Unavailable Liz Capellan DO Primary Care Provider [phone] Reason for Visit * Reason Comments Medication Refill Encounter Details Date Type Department Care Team (Late st Contact Info) Description 03/27/2020 Refill [facility] [address] [place] [address] Keith Craft MD [address]1 [place] [address] Medication Refill Social History Tobacco Use Types [...] Telephone Encounter - Gloria Cornejo RN - 03/28/2020 1:16 PM CST Sending for review per nursing clinical judgement. Last A1C 11/02/19 5.8 Follow up 06/16/20 NG MACHINE SET UP OPERATOR documented in this encounter Plan of Treatment Upcoming Encounters Date Type Department Care Team (Late st Contact Info) Description 07/13/2024 1:30 PM HONING MACHINE SET UP OPERATOR Office Visit [facility] [address] [place] [address] Liz Capellan L, DO [address] [address] 07/20/2024 2:15 PM HONING MACHINE SET UP OPERATOR Office Visit [facility] - Endocrinology - [place] [address]2 [place] [address] Ana Vivar, COMMERCIAL PROPERTY ADMINISTRATOR, [employer] 2 [facility] [address] [place] [address] Yasmin Restrepo MD #[address] [address] 07/31/2024 1:00 PM HONING MACHINE SET UP OPERATOR [facility] [address] [place] [address] Werner Swift MD #2 [place] [address] Discharge Disposition: Discharged to home or Selfcare 08/03/2024 1:15 PM CDT [facility] [address] [place] [address] Werner Swift MD #2 [place] [address] 09/02/2024 2:00 PM CDT Appointment [facility] Respiratory Therapy [address] [place] [address] Werner Swift MD #2 [place] [address] Discharge Disposition: Discharged to home or Selfcare 10/09/2024 2:30 PM CDT Office Visit [facility] Family Medicine [facility] [address] [place] [address] Liz Capellan, DO [address] [address] documented as of this encounter Visit Diagnoses [...] - 19 07/23/2021 07/23/2021 07/24/2021 6:31 AM HONING MACHINE SET UP OPERATOR COVID - 19 10/19/2021 10/19/2021 10/20/2021 7:45 AM CDT Respiratory Rule Out - RPA 10/19/2021 10/19/2021 0 10/20/2021 2:10 PM CDT Stenotrophomonas maltophilia Comment:Must have a follow up respiratory sample to remove isolation flag. 10/20/2021 10/20/2021 COVID - 19 04/20/2022 04/20/2022 04/30/2022 12:1 8 AM HONING MACHINE SET UP OPERATOR COVID - 19 07/18/2022 07/18/2022 07/28/2022 12:1 6 AM HONING MACHINE SET UP OPERATOR COVID - 19 08/21/2022 08/21/2022 08/22/2022 8:31 AM CDT Respiratory Rule Out - RPA 08/21/2022 08/21/2022 0 08/22/2022 3:21 PM CDT COVID - 19 04/18/2023 04/18/2023 04/28/2023 12:1 6 AM HONING MACHINE SET UP OPERATOR COVID - 19 07/13/2023 07/13/2023 07/23/2023 12:1 6 AM HONING MACHINE SET UP OPERATOR Respiratory Rule Out - RPA 03/17/2024 03/17/2024 1 3:36 PM CDT COVID - 19 04/27/2024 04/27/2024 04/27/2024 2:19 PM HONING MACHINE SET UP OPERATOR Assessment Noted Time PHQ-9 Depression Total Score: 1 06/10/19 20 1:03 PM HONING MACHINE SET UP OPERATOR documented as of this encounter Care Teams Baggage Porter Relationship Specialty Start Date End Date Keith Craft MD PCP - General Family Medicine 01/14/19 12/26/23 Liz Capellan DO 2 [facility] [address] [address] PCP - General Family Medicine 12/27/23 Quang Locke DO Gastroenterology 01/18/16 Bri Rollins, RN [place] Infection Control Specialist 03/07/21 05/22/23 [place] [id number] [address] 05/25/21 Bri Rollins RN [place] Nurse Infection Control Specialist 03/07/21 05/23/23 Werner Swift MD #2 [place] [address] Consulting Physician Pulmonary Disease 01/30/22 documented as of this encounter
--- OUTSIDE RECORDS SUMMARY | 2024-07-10 13:46 | XMS_ITS | Encounter Summary ---
Author Organization [facility] Address [address] [place] [address] Phone Care Team Providers Care Autotransfusionist Name Role Phone Quang Locke Unavailable [phone] Keith Craft MD Primary Care Provider [phone] Bri Rollins RN Unavailable Unavailable Silvio Schulte MD Unavailable [phone] Bri Rollins RN Unavailable Unavailable Werner Swift MD Unavailable Liz Capellan DO Primary Care Provider [phone] Reason for Visit * Reason Comments Medication Refill Dexilant Encounter Details Date Type Department Care Team (Late st Contact Info) Description 04/09/2020 Refill [facility] Family Medicine [facility] #2 [place] [address] Keith Craft MD #1 [place] [address] Medication Refill (Dexilant) Social History Tobacco Use Types Packs/Day Years [...] encounter Miscellaneous Notes * Telephone Encounter - Piotr Aguirre RN - 04/09/2020 9:41 AM CAMERA MACHINIST Requested Prescriptions Pending Prescriptions Disp Refills ??? Dexilant 60 MG CAPSULE DELAYED RELEASE [Pharmacy Med Name: DEXILANT DR 60 MG CAPSULE] 90 Cap 3 Sig: TAKE 1 CAPSULE BY MOUTH EVERY DAY Above medication pended for your approval. Last refill: 01/14/19 #90/3 Last office visit: 02/02/20 Next visit: 06/07/20 RA MACHINIST documented in this encounter Plan of Treatment Upcoming Encounters Date Type Department Care Team (Late st Contact Info) Description 07/13/2024 1:30 PM CAMERA MACHINIST Office Visit [facility] Medical Group - Family Medicine [facility] [address] [place] [address] Liz Capellan, DO [address] [address] 07/20/2024 2:15 PM CAMERA MACHINIST Office Visit [facility] Medical [facility] - Endocrinology - [place] [address]2 [place] [address] Ana Vivar, LAY OUT HELPER, GRANITE BLOCK PAVER 2 [facility] [address] [place] [address] Yasmin Restrepo MD #[address] [address] 07/31/2024 1:00 PM CAMERA MACHINIST [facility] [address] [place] [address] Werner Swift MD #[facility] [place] [address] Discharge Disposition: Discharged to home or Selfcare 08/03/2024 1:15 PM CDT Office Visit [facility] - Pulmonology & Sleep Medicine [facility] [address] [place] [address] Werner Swift MD #2 [place] [address] 09/02/2024 2:00 PM CDT [facility] [address] [facility] [place] [address] Werner Swift MD #2 [place] [address] Discharge Disposition: Discharged to home or Selfcare 10/09/2024 2:30 PM CDT Office Visit [facility] Medical [facility] - Family Medicine [facility] [address] [place] [address] Liz Capellan, DO [address] [address] documented as of this encounter Visit Diagnoses Diagnosis Gastroesophageal reflux disease without esophagitis Esophageal reflux documented in this encounter Additional Health Concerns Infection Onset Date Last Indicated Resolved Time COVID - 19 01/25/2021 01/25/2021 01/31/2021 8:10 AM CDT Respiratory Rule Out - RPA 01/30/2021 01/30/2021 0 02/01/2021 12:45 AM CDT COVID - 19 07/23/2021 07/23/2021 07/24/2021 6:31 AM CAMERA MACHINIST COVID - 19 10/19/2021 10/19/2021 10/20/2021 7:45 AM CDT Respiratory Rule Out - RPA 10/19/2021 10/19/2021 0 10/20/2021 2:10 PM CDT Stenotrophomonas maltophilia Comment:Must have a follow up respiratory sample to remove isolation flag. 10/20/2021 10/20/2021 COVID - 19 04/20/2022 04/20/2022 04/30/2022 12:1 8 AM CAMERA MACHINIST COVID - 19 07/18/2022 07/18/2022 07/28/2022 12:1 6 AM CAMERA MACHINIST COVID - 19 08/21/2022 08/21/2022 08/22/2022 8:31 AM CDT Respiratory Rule Out - RPA 08/21/2022 08/21/2022 0 08/22/2022 3:21 PM CDT COVID - 19 04/18/2023 04/18/2023 04/28/2023 12:1 6 AM CAMERA MACHINIST COVID - 19 07/13/2023 07/13/2023 07/23/2023 12:1 6 AM CAMERA MACHINIST Respiratory Rule Out - RPA 03/17/2024 03/17/2024 1 3:36 PM CDT COVID - 19 04/27/2024 04/27/2024 04/27/2024 2:19 PM CAMERA MACHINIST Assessment Noted Time PHQ-9 Depression Total Score: 1 06/10/19 20 1:03 PM CAMERA MACHINIST documented as of this encounter Care Teams Autotransfusionist Relationship Specialty Start Date End Date Keith Craft MD PCP - General Family Medicine 01/14/19 12/26/23 Liz Capellan DO [address] [address] PCP - General Family Medicine 12/27/23 Quang Locke DO Gastroenterology 01/18/16 Bri Rollins, RN [place] Lime Kiln Worker 03/07/21 05/22/23 [place] [address] [address] 05/25/21 rBi Rollins, RN [place] Nurse Lime Kiln Worker 03/07/21 05/23/23 Werner Swift MD #2 [place] [address] Consulting Physician Pulmonary Disease 01/30/22 documented as of this encounter
--- OUTSIDE RECORDS SUMMARY | 2024-07-10 13:46 | XMS_ITS | Encounter Summary ---
Author Organization [facility] Address [address] [place] [address] Phone Care Team Providers Care Clinical Educator Name Role Phone Quang Locke Unavailable [phone] Keith Craft MD Primary Care Provider Bri Rollins RN Unavailable Unavailable Silvio Schulte MD Unavailable [phone] Bri Rollins RN Unavailable Unavailable Werner Swift MD Unavailable Liz Capellan DO Primary Care Provider [phone] Reason for Visit * Reason Onset Date Comments Medication Refill 05/11/2020 Encounter Details Date Type Department Care Team (Late st Contact Info) Description 05/11/2020 Refill [facility] [address] [place] [address] Keith Craft MD [address] [place] [address] Medication Refill Social History Tobacco Use Types [...] COVID-19? No / Unsure 04/25/2020 1:42 PM SERVICES PROGRAM MANAGER documented as of this encounter Miscellaneous Notes * Telephone Encounter - Gloria Cornejo RN - 05/11/2020 1:19 PM CST Last OV 04/25/20 - follow up 06/07/20 - Last Rx 04/11/20 Medication failed the protocol, provider to review and approve the medication order if appropriate. Requested Prescriptions Pending Prescriptions Disp Refills HYDROcodone-acetaminophen (NORCO) 5-325 MG Tablet 30 Tab 0 Sig: Take 1 Tab by mouth daily. Not Delegated - Analgesics: Opioid Agonist Combinations Failed - 05/11/2020 1:19 PM Failed - This refill cannot be delegated Passed - Valid encounter within last 6 months Past Office Visits Recent Outpatient Visits 2 weeks ago Pneumonia of right upper lobe due to infectious organism [facility] Keith Lemus MD 3 months ago Acute non-recurrent maxillary sinusitis [facility] Keith Lemus MD 6 months ago Chronic prescription opiate use [facility] Keith Lemus MD 9 months ago 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 [facility] Keith Lemus MD 11 months ago COPD exacerbation (HCC) [facility] Brie [place], [facility] Upcoming Appointments Future Appointments In 3 weeks Keith Craft MD [facility] Maximiliano Tesf[facility] VETERINARY POULTRY INSPECTOR - Recent and Past Visits Recent Visits Date Type Provider Dept 04/25/20 Office Visit Keith Craft MD [facility] 02/02/20 Office Visit Keith Craft MD [facility] 11/02/19 Office Visit Keith Craft MD [facility] 07/27/19 Office Visit Keith Craft MD [facility] 06/10/19 Office Visit Brie Denis, NICOLE [facility] 04/20/19 Office Visit Keith Craft MD [facility] Showing recent visits within past 460 days with a meds authorizing provider and meeting all other requirements Future Appointments Date Type Provider Dept 06/07/20 Appointment Keith Craft MD [facility] Showing future appointments within next 90 days with a meds authorizing provider and meeting all other requirements ICES PROGRAM MANAGER * Telephone Encounter - Missy Mcdonough - 05/11/2020 8:23 AM CST Received: []FAX [x]TELEPHONE CALL []MYCHART from: []PHARMACY [x]PATIENT/OTHER regarding medication management. Medication name and dose: Requested Prescriptions Pending Prescriptions Disp Refills ??? HYDROcodone-acetaminophen (NORCO) 5-325 MG Tablet 30 Tab 0 Sig: Take 1 Tab by mouth daily. Quantity: (30 day, 90 day, 3 monthly scripts) 30 Pharmacy preference for this medication: [facility]/pharmacy #[id number] Outcome: [x]Medication pended, routed to surescripts []Medication refused []Informed caller of refills at pharmacy []Additional message to medication management RN []Verbal authorization for written order to pharmacy []Additional message to provider []Verified medication with pharmacy Missy Medication Management ICES PROGRAM MANAGER documented in this encounter Plan of Treatment Upcoming Encounters Date Type Department Care Team (Late st Contact Info) Description 07/13/2024 1:30 PM SERVICES PROGRAM MANAGER Office Visit [facility] - Family Medicine - [place] [address]2 [place] [address] Liz Capellan L, DO 2 [facility] [address] [facility] [address] [place] [address] 07/20/2024 2:15 PM SERVICES PROGRAM MANAGER Office Visit [facility] Endocrinology [facility] #2 [place] [address] Ana Vivar N, POWDER WORKER, COMPUTER PROGRAMMING MANAGER 2 [facility] [address] [place] [address] Yasmin Restrepo MD #[address] [phone] 07/31/2024 1:00 PM SERVICES PROGRAM MANAGER [facility] [address] [place] [address] Werner Swift MD #2 [place] [address] Discharge Disposition: Discharged to home or Selfcare 08/03/2024 1:15 PM CDT Office Visit [facility] - Pulmonology & Sleep Medicine [facility] #[address] [place] [address] Werner Swift MD #2 [place] [address] 09/02/2024 2:00 PM CDT [facility] 1 [place] [address] Werner Swift MD #2 [place] [address] Discharge Disposition: Discharged to home or Selfcare 10/09/2024 2:30 PM CDT Office Visit [facility] - Family Medicine - [place] [address] [place] [address] Liz Capellan, DO 2 [facility] [address] [place], [place]. [address] [place] [address] documented as of this encounter Visit Diagnoses [...] - 19 07/23/2021 07/23/2021 07/24/2021 6:31 AM SERVICES PROGRAM MANAGER COVID - 19 10/19/2021 10/19/2021 10/20/2021 7:45 AM CDT Respiratory Rule Out - RPA 10/19/2021 10/19/2021 0 10/20/2021 2:10 PM CDT Stenotrophomonas maltophilia Comment:Must have a follow up respiratory sample to remove isolation flag. 10/20/2021 10/20/2021 COVID - 19 04/20/2022 04/20/2022 04/30/2022 12:1 8 AM SERVICES PROGRAM MANAGER COVID - 19 07/18/2022 07/18/2022 07/28/2022 12:1 6 AM SERVICES PROGRAM MANAGER COVID - 19 08/21/2022 08/21/2022 08/22/2022 8:31 AM CDT Respiratory Rule Out - RPA 08/21/2022 08/21/2022 0 08/22/2022 3:21 PM CDT COVID - 19 04/18/2023 04/18/2023 04/28/2023 12:1 6 AM SERVICES PROGRAM MANAGER COVID - 19 07/13/2023 07/13/2023 07/23/2023 12:1 6 AM SERVICES PROGRAM MANAGER Respiratory Rule Out - RPA 03/17/2024 03/17/2024 1 3:36 PM CDT COVID - 19 04/27/2024 04/27/2024 04/27/2024 2:19 PM SERVICES PROGRAM MANAGER Assessment Noted Time PHQ-9 Depression Total Score: 1 06/10/19 20 1:03 PM SERVICES PROGRAM MANAGER documented as of this encounter Care Teams Clinical Educator Relationship Specialty Start Date End Date Keith Craft MD PCP - General Family Medicine 01/14/19 12/26/23 Liz Capellan DO [address] [id number] PCP - General Family Medicine 12/27/23 Quang Locke DO Gastroenterology 01/18/16 Bri Rollins, RN [place] Conditioning Yard Supervisor 03/07/21 05/22/23 [place] [address] [address] 05/25/21 Bri Rollins, RN [place] Nurse Conditioning Yard Supervisor 03/07/21 05/23/23 Werner Swift MD #2 [place] [address] Consulting Physician Pulmonary Disease 01/30/22 documented as of this encounter
--- OUTSIDE RECORDS SUMMARY | 2024-07-10 13:46 | XMS_ITS | Encounter Summary ---
Author Organization [facility] Address [address] [place] [address] Phone Care Team Providers Care Wellness Specialist Name Role Phone Quang Locke Unavailable [phone] Keith Craft MD Primary Care Provider Bri Rollins RN Unavailable Unavailable Silvio Schulte MD Unavailable [phone] Bri Rollins RN Unavailable Unavailable Werner Swift MD Unavailable Liz Capellan DO Primary Care Provider [phone] Reason for Visit * Reason Comments Medication Refill Encounter Details Date Type Department Care Team (Late st Contact Info) Description 02/13/2020 [facility]ill [facility] [address] [place] [address] Keith Craft MD [address]1 [place] [address] Medication Refill Social History Tobacco Use Types [...] have Coronavirus / COVID-19? No / Unsure 02/02/2020 1:32 PM CDT documented as of this encounter Miscellaneous Notes * Telephone Encounter - Lillian Poe RN - 02/15/2020 3:30 PM CDT Medication failed the protocol,provider to review and approve the medication order. Requested Prescriptions Pending Prescriptions Disp Refills levothyroxine (SYNTHROID) 25 MCG Tablet [Pharmacy Med Name: LEVOTHYROXINE 25 MCG TABLET] 90 Tab 3 Sig: TAKE 1 TABLET BY MOUTH EVERY DAY Endocrinology: Hypothyroid Agents Passed - 02/13/2020 9:18 AM Passed - Valid encounter within last 12 months Past Office Visits Recent Outpatient Visits 1 week ago Type 2 diabetes mellitus with diabetic neuropathy, with long-term current use of insulin(HCC) [facility] Keith Lemus MD 3 months ago Chronic prescription opiate use [facility] Keith Lemus MD 6 months ago Coronary artery disease involving [place] coronary artery of [place] heart without angina pectoris [facility] Keith Lemus MD 8 months ago COPD exacerbation (HCC) [facility] Brie Vieira PAC 10 months ago Type 2 diabetes mellitus with diabetic neuropathy, with long-term current use of insulin (HCC) [facility] Keith Lemus MD Upcoming Appointments Future Appointments In 3 months Keith Craft MD [facility] MACHINE COMPOSITOR - Recent and Past Visits Recent Visits Date Type Provider Dept 02/02/20 Office Visit Keith Craft MD [facility] 11/02/19 Office Visit Keith Craft MD [facility] 07/27/19 Office Visit Keith Craft MD [facility] 06/10/19 Office Visit Brie Denis PAC [facility] 04/20/19 Office Visit Keith Craft MD [facility] 01/14/19 Office Visit [facility] Showing recent visits within past 460 days with a meds authorizing provider and meeting all other requirements Future Appointments No visits were found meeting these conditions. Showing future appointments within next 90 days with a meds authorizing provider and meeting all other requirements Passed - TSH in normal range and within 360 days TSH Date Value Ref Range Status 11/02/2019 2.300 0.270 - 4.200 mIU/L Final valACYclovir (VALTREX) 500 MG Tablet [Pharmacy Med Name: VALACYCLOVIR HCL 500 MG TABLET] 90 Tab 3 Sig: TAKE 1 TABLET BY MOUTH EVERY DAY AT NIGHT Not Delegated - Antimicrobials: Antiviral Agents - Anti-Herpetic Failed - 02/13/2020 9:18 AM Failed - This refill cannot be delegated Passed - Valid encounter within last 12 months Past Office Visits Recent Outpatient Visits 1 week ago Type 2 diabetes mellitus with diabetic neuropathy, with long-term current use of insulin([facility]) [facility] Keith Jenkins MD 3 months ago Chronic prescription opiate use [facility] Keith Jenkins MD 6 months ago Coronary artery disease involving [place] coronary artery of [place] heart without angina pectoris [facility] COPD exacerbation [facility] 10 months ago Type 2 diabetes mellitus with diabetic neuropathy, with long-term current use of insulin ([facility]) [facility] Keith Jenkins MD Upcoming Appointments Future Appointments In 3 months Keith Craft MD [facility], [facility] MACHINE COMPOSITOR - Recent and Past Visits Recent Visits Date Type Provider Dept 02/02/20 Office Visit Keith Craft MD [facility] 11/02/19 Office Visit Keith Craft MD [facility] 07/27/19 Office Visit Keith Craft MD [facility] 06/10/19 [facility] 04/20/19 Office Visit Keith Craft MD [facility] 01/14/19 Office Visit [facility] Showing recent visits within past 460 days [...] st Contact Info) Description 07/13/2024 1:30 PM RUG BACKING STENCILER Office Visit [facility] [address]2 [place] [address] Liz Capellan, DO [address] [address] 07/20/2024 2:15 PM RUG BACKING STENCILER Office Visit [facility] Endocrinology [facility] [address]2 [facility] [place] [address] Ana Vivar, BANQUET LINE COOK, PAINT PROCESS ENGINEER 2 [facility] [address] [place] [address] Yasmin Restrepo MD #[address] [place] [address] 07/31/2024 1:00 PM RUG BACKING STENCILER [facility] [address] [place] [address] Werner Swift MD [address] [place] [address] Discharge Disposition: Discharged to home or Selfcare 08/03/2024 1:15 PM CDT Office Visit [facility] - Pulmonology & Sleep Medicine [facility] #2 [place] [address] Werner Swift MD #[address] [place] [address] 09/02/2024 2:00 PM CDT Appointment [facility] Respiratory Therapy [address] [place] [address] Werner Swift MD [address] [place] [address] Discharge Disposition: Discharged to home or Selfcare 10/09/2024 2:30 PM CDT Office Visit [facility] - Family Medicine [facility] [address] [place] [address] Liz Capellan, DO [address] [address] documented as of this encounter Visit Diagnoses Diagnosis Anxiety and depression Dysthymic disorder documented in this encounter Additional Health Concerns Infection Onset Date Last Indicated Resolved Time COVID - 19 01/25/2021 01/25/2021 01/31/2021 8:10 AM CDT Respiratory Rule Out - RPA 01/30/2021 01/30/2021 0 02/01/2021 12:45 AM CDT COVID - 19 07/23/2021 07/23/2021 07/24/2021 6:31 AM RUG BACKING STENCILER COVID - 19 10/19/2021 10/19/2021 10/20/2021 7:45 AM CDT Respiratory Rule Out - RPA 10/19/2021 10/19/2021 0 10/20/2021 2:10 PM CDT Stenotrophomonas maltophilia Comment:Must have a follow up respiratory sample to remove isolation flag. 10/20/2021 10/20/2021 COVID - 19 04/20/2022 04/20/2022 04/30/2022 12:1 8 AM RUG BACKING STENCILER COVID - 19 07/18/2022 07/18/2022 07/28/2022 12:1 6 AM RUG BACKING STENCILER COVID - 19 08/21/2022 08/21/2022 08/22/2022 8:31 AM CDT Respiratory Rule Out - RPA 08/21/2022 08/21/2022 0 08/22/2022 3:21 PM CDT COVID - 19 04/18/2023 04/18/2023 04/28/2023 12:1 6 AM RUG BACKING STENCILER COVID - 19 07/13/2023 07/13/2023 07/23/2023 12:1 6 AM RUG BACKING STENCILER Respiratory Rule Out - RPA 03/17/2024 03/17/2024 1 3:36 PM CDT COVID - 19 04/27/2024 04/27/2024 04/27/2024 2:19 PM RUG BACKING STENCILER Assessment Noted Time PHQ-9 Depression Total Score: 1 06/10/19 20 1:03 PM RUG BACKING STENCILER documented as of this encounter Care Teams Wellness Specialist Relationship Specialty Start Date End Date Keith Craft MD PCP - General Family Medicine 01/14/19 12/26/23 Liz Capellan DO 2 [facility] [address] [address] PCP - General Family Medicine 12/27/23 Quang Locke DO Gastroenterology 01/18/16 Bri Rollins RN [place] Strategic Analyst 03/07/21 05/22/23 [place] [id number] [address] 05/25/21 Bri Rollins RN [place] Nurse Strategic Analyst 03/07/21 05/23/23 Werner Swift MD #[address] [place] [address] Consulting Physician Pulmonary Disease 01/30/22 documented as of this encounter
--- OUTSIDE RECORDS SUMMARY | 2024-07-10 13:46 | XMS_ITS | Encounter Summary ---
Author Organization [facility] Address [address] [place] [address] Phone Care Team Providers Care Coding Consultant Name Role Phone Quang Locke Unavailable [phone] Keith Craft MD Primary Care Provider [phone] Bri Rollins RN Unavailable Unavailable Silvio Schulte MD Unavailable [phone] Bri Rollins RN Unavailable Unavailable Werner Swift MD Unavailable Liz Capellan DO Primary Care Provider [phone] Reason for Visit * Reason Onset Date Comments Medication Refill 02/12/2020 norco Encounter Details Date Type Department Care Team (Late st Contact Info) Description 02/12/2020 Refill [facility] - Family Medicine [facility] [address] [place] [id number] Keith Craft MD [address] [place] [address] Medication Refill (norco) Social History Tobacco Use Types Packs/Day Years [...] encounter Miscellaneous Notes * Telephone Encounter - Kristy Arriola RN - 02/12/2020 10:05 AM CDT CURLY: 02-02-2020 Next OV: 06-07-2020 * Telephone Encounter - Patricia Kauffman - 02/12/2020 9:03 AM CDT Name of Medication: HYDROcodone-acetaminophen (NORCO) 5-325 MG Tablet Pharmacy/location for refill to be sent to (if is not a written script)? [facility] [address] [place], [place] 30 or 90 day supply? 30 documented in this encounter Plan of Treatment Upcoming Encounters Date Type Department Care Team (Late st Contact Info) Description 07/13/2024 1:30 PM FITTER/WELDER Office Visit [facility] - Family Medicine [facility] [address] [place] [address] Liz Capellan, DO 2 [facility] [address], [facility]. [address] [place] [address] 07/20/2024 2:15 PM FITTER/WELDER Office Visit [facility] - Endocrinology - [place] #2 [facility] [address] Ana iVvar, PATIENT RELATIONS COORDINATOR, MANAGER ENVIRONMENTAL HEALTH 2 [facility] [address] [place] [address] Yasmin Restrepo MD #[address] [address] 07/31/2024 1:00 PM FITTER/WELDER Appointment [facility] [address] [place] [address] Werner Swift MD [address] [place] [address] Discharge Disposition: Discharged to home or Selfcare 08/03/2024 1:15 PM CDT Office Visit [facility] - Pulmonology & Sleep Medicine [facility] [address]2 [place] [address] Werner Swift MD #2 [place] [address] 09/02/2024 2:00 PM CDT [facility] [address] [place] [address] Werner Swift MD #2 [place] [address] Discharge Disposition: Discharged to home or Selfcare 10/09/2024 2:30 PM CDT Office Visit [facility] - Family Medicine [facility] [address]2 [place] [address] Liz Capellan, DO 2 [facility] [address] [place] [address] documented as of this encounter Visit Diagnoses Not on filedocumented in this encounter Additional Health Concerns Infection Onset Date Last Indicated Resolved Time COVID - 19 01/25/2021 01/25/2021 01/31/2021 8:10 AM CDT Respiratory Rule Out - RPA 01/30/2021 01/30/2021 0 02/01/2021 12:45 AM CDT COVID - 19 07/23/2021 07/23/2021 07/24/2021 6:31 AM FITTER/WELDER COVID - 19 10/19/2021 10/19/2021 10/20/2021 7:45 AM CDT Respiratory Rule Out - RPA 10/19/2021 10/19/2021 0 10/20/2021 2:10 PM CDT Stenotrophomonas maltophilia Comment:Must have a follow up respiratory sample to remove isolation flag. 10/20/2021 10/20/2021 COVID - 19 04/20/2022 04/20/2022 04/30/2022 12:1 8 AM FITTER/WELDER COVID - 19 07/18/2022 07/18/2022 07/28/2022 12:1 6 AM FITTER/WELDER COVID - 19 08/21/2022 08/21/2022 08/22/2022 8:3 1 AM CDT Respiratory Rule Out - RPA 08/21/2022 08/21/2022 0 08/22/2022 3:21 PM CDT COVID - 19 04/18/2023 04/18/2023 04/28/2023 12:1 6 AM FITTER/WELDER COVID - 19 07/13/2023 07/13/2023 07/23/2023 12:1 6 AM FITTER/WELDER Respiratory Rule Out - RPA 03/17/2024 03/17/2024 1 3:36 PM CDT COVID - 19 04/27/2024 04/27/2024 04/27/2024 2:19 PM FITTER/WELDER Assessment Noted Time PHQ-9 Depression Total Score: 1 06/10/19 20 1:03 PM FITTER/WELDER documented as of this encounter Care Teams Coding Consultant Relationship Specialty Start Date End Date Keith Craft MD PCP - General Family Medicine 01/14/19 12/26/23 Liz Capellan DO [address] [address] PCP - General Family Medicine 12/27/23 Quang Locke DO Gastroenterology 01/18/16 Bri Rollins RN [place] Projection Welding Machine Operator 03/07/21 05/22/23 [place] [address] [address] 05/25/21 Bri Rollins, [place] Nurse Projection Welding Machine Operator 03/07/21 05/23/23 Werner Swift MD #[address] [place] [address] Consulting Physician Pulmonary Disease 01/30/22 documented as of this encounter
--- OUTSIDE RECORDS SUMMARY | 2024-07-10 13:46 | XMS_ITS | Encounter Summary ---
Author Organization [facility] Address [address] [place] [address] Phone Care Team Providers Care Internet Cafe Manager Name Role Phone Quang Locke Unavailable [phone] Allison Robles MD Primary Care Provider [phone] Bri Rollins RN Unavailable Unavailable Silvio Schulte MD Unavailable [phone] Bri Rollins RN Unavailable Unavailable Werner Swift MD Unavailable Liz Capellan DO Primary Care Provider [phone] Reason for Visit * Reason Comments Medication Refill Encounter Details Date Type Department Care Team (Late st Contact Info) Description 02/03/2020 Refill [facility] [address] [place] [address] Allison Robles MD #[address] [place] [address] Medication Refill Social History Tobacco Use Types [...] encounter Miscellaneous Notes * Telephone Encounter - Princess Carmen RN - 02/04/2020 8:09 AM CDT Routing to provider per protocol as medication(s) can not be signed by a nurse for approval. Medication Dispense History (from 10/07/2019 to 02/03/2020) [email or web address] Dispensed Written Strength Quantity Refills Days Supply Provider Pharmacy [email or web address] 01/06/2020 01/06/2020 10MG 30 0 30 , ALLISON ROBLES MD [facility] Pharmacy [email or web address] 12/07/2019 12/07/2019 10MG 30 0 30 , ALLISON ROBLES MD [facility] Pharmacy [email or web address] 11/05/2019 11/05/2019 10MG 30 0 30 , ALLISON ROBLES MD [facility] Pharmacy External Sources Source Last Checked for Updates Status [facility] 02/03/2020 9:25 AM History Response Filed documented in this encounter Plan of Treatment Upcoming Encounters Date Type Department Care Team (Late st Contact Info) Description 07/13/2024 1:30 PM AGRICULTURE LABORER [facility] Medicine - [place] [address] [place] [address] Liz Capellan, DO 2 [facility] [address] [place], [facility]. [address] [place] [address] 07/20/2024 2:15 PM AGRICULTURE LABORER Office Visit [facility] - Endocrinology [facility] #2 [place] [address] Ana Vivar, AERIAL INSTALLER, FUNERAL ATTENDANT 2 [facility]. [address] [place] [address] Yasmin Restrepo MD #[address] [address] 07/31/2024 1:00 PM AGRICULTURE LABORER [facility] [address] [place] [address] Werner Swift MD #2 [place] [address] Discharge Disposition: Discharged to home or Selfcare 08/03/2024 1:15 PM CDT Office Visit [facility] - Pulmonology & Sleep Medicine [facility] #2 [place] [address] Werner Swift MD #2 [place] [address] 09/02/2024 2:00 PM CDT [facility] 1 [place] [address] Werner Swift MD #2 [place] [address] Discharge Disposition: Discharged to home or Selfcare 10/09/2024 2:30 PM CDT Office Visit [facility] - Family Medicine [facility] [address] [place] [address] Liz Capellan, DO 2 [facility]. [address] [place], [place] [address] documented as of this encounter Visit Diagnoses Diagnosis Anxiety and depression Dysthymic disorder documented in this encounter Additional Health Concerns Infection Onset Date Last Indicated Resolved Time COVID - 19 01/25/2021 01/25/2021 01/31/2021 8:10 AM CDT Respiratory Rule Out - RPA 01/30/2021 01/30/2021 0 02/01/2021 12:45 AM CDT COVID - 19 07/23/2021 07/23/2021 07/24/2021 6:31 AM AGRICULTURE LABORER COVID - 19 10/19/2021 10/19/2021 10/20/2021 7:45 AM CDT Respiratory Rule Out - RPA 10/19/2021 10/19/2021 0 10/20/2021 2:10 PM CDT Stenotrophomonas maltophilia Comment:Must have a follow up respiratory sample to remove isolation flag. 10/20/2021 10/20/2021 COVID - 19 04/20/2022 04/20/2022 04/30/2022 12:1 8 AM AGRICULTURE LABORER COVID - 19 07/18/2022 07/18/2022 07/28/2022 12:1 6 AM AGRICULTURE LABORER COVID - 19 08/21/2022 08/21/2022 08/22/2022 8:31 AM CDT Respiratory Rule Out - RPA 08/21/2022 08/21/2022 0 08/22/2022 3:21 PM CDT COVID - 19 04/18/2023 04/18/2023 04/28/2023 12:1 6 AM AGRICULTURE LABORER COVID - 19 07/13/2023 07/13/2023 07/23/2023 12:1 6 AM AGRICULTURE LABORER Respiratory Rule Out - RPA 03/17/2024 03/17/2024 1 3:36 PM CDT COVID - 19 04/27/2024 04/27/2024 04/27/2024 2:19 PM AGRICULTURE LABORER Assessment Noted Time PHQ-9 Depression Total Score: 1 06/10/19 20 1:03 PM AGRICULTURE LABORER documented as of this encounter Care Teams Internet Cafe Manager Relationship Specialty Start Date End Date Allison Robles MD PCP - General Family Medicine 01/14/19 12/26/23 Liz Capellan DO [address] [address] PCP - General Family Medicine 12/27/23 Quang Locke DO Gastroenterology 01/18/16 Bri Rollins, RN [place] Commuter Pilot 03/07/21 05/22/23 [place] [address] [address] 05/25/21 Bri Rollins, RN [place] Nurse Commuter Pilot 03/07/21 05/23/23 Werner Swift MD #2 [place] [address] Consulting Physician Pulmonary Disease 01/30/22 documented as of this encounter
--- OUTSIDE RECORDS SUMMARY | 2024-07-10 13:46 | XMS_ITS | Encounter Summary ---
Author Organization [facility] Address [address] [place] [address] Phone Care Team Providers Care Irrigation System Installer Name Role Phone Quang Locke Unavailable [phone] Keith Craft MD Primary Care Provider [phone] Bri Rollins RN Unavailable Unavailable Silvio Schulte MD Unavailable [phone] Bri Rollins RN Unavailable Unavailable Werner Swift MD Unavailable Liz Capellan DO Primary Care Provider [phone] Reason for Visit * Reason Comments Medication Refill Encounter Details Date Type Department Care Team (Late st Contact Info) Description 07/14/2020 Refill [facility] [address] [place] [address] Keith Craft MD [address]1 [place] [address] Medication Refill Social History Tobacco Use Types [...] have Coronavirus / COVID-19? No / Unsure 07/02/2020 2:53 PM SLOT KEY PERSON documented as of this encounter Miscellaneous Notes * Telephone Encounter - Camila Mehta RN - 07/14/2020 12:40 PM CST Medication failed the protocol, provider to review and approve the medication order if appropriate. Requested Prescriptions Pending Prescriptions Disp Refills Xigduo XR 5-1000 MG TABLET SR 24 HR [Pharmacy Med Name: XIGDUO XR 5 MG-1,000 MG TABLET] 180 Tablet 0 Sig: TAKE 1 TABLET BY MOUTH TWICE A DAY Off-Protocol Failed - 07/14/2020 12:40 PM Failed - Medication not assigned to a protocol, review manually. 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 [facility] Keith Lemus MD Upcoming Appointments Future Appointments In 2 weeks [facility] 2ND VACCINE CLINIC [facility] - [facility] In 2 months Keith Craft MD [facility] Maximiliano Tesfaye [facility] HYDRAULIC PILE HAMMER OPERATOR - Recent and Past Visits Recent Visits Date Type Provider Dept 06/07/20 Office Visit Keith Craft MD [facility] 04/25/20 Office Visit Keith Craft MD [facility] 02/02/20 Office Visit Keith Craft MD [facility] 11/02/19 Office Visit Keith Craft MD [facility] 07/27/19 Office Visit Keith Craft MD [facility] 06/10/19 Office Visit Cira Brie Palma, [facility] 04/20/19 Office Visit [facility] Showing recent visits within past 460 days with a meds authorizing provider and meeting all other requirements Future Appointments Date Type Provider Dept 10/04/20 Appointment Keith Craft MD [facility] Showing future appointments within next 90 days with a meds authorizing provider and meeting all other requirements Signed Prescriptions Disp Refills theophylline CR, 12 hour, (THEODUR) 300 MG TABLET SR 12 HR 180 Tablet 0 Sig: TAKE 1 TABLET BY MOUTH EVERY 12 HOURS Pulmonology: Theophyllines Passed - 07/14/2020 12:13 AM Passed - Valid encounter within last 12 months Past Office Visits Recent Outpatient Visits 1 month ago Mixed hyperlipidemia [facility] Keith Lemus MD 2 months ago Pneumonia of right upper lobe due to infectious organism [facility] Keith Lemus MD 5 months ago Acute non-recurrent maxillary sinusitis [facility] Keith Jenkins MD 8 months ago Chronic prescription opiate use [facility] Keith Lemus MD 11 months ago 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 [facility] Keith Jenkins MD Upcoming Appointments Future Appointments In [address] VACCINE CLINIC [facility] - [facility] In 2 months Keith Craft MD [facility] HYDRAULIC PILE HAMMER OPERATOR - Recent and Past Visits Recent Visits Date Type Provider Dept 06/07/20 Office Visit Keith Craft MD [facility] 04/25/20 Office Visit Keith Craft MD [facility] 02/02/20 Office Visit Keith Craft MD [facility] 11/02/19 Office Visit Keith Craft MD [facility] 07/27/19 Office Visit Keith Craft MD [facility] 06/10/19 Office Visit Adolfokikamanny Brie Palma, [facility] 04/20/19 Office Visit Keith Craft MD [facility] [place] Showing recent visits within past 460 days with a meds authorizing provider and meeting all other requirements Future Appointments Date Type Provider Dept 10/04/20 Appointment Keith Craft MD [facility] Showing future appointments within next 90 days with a meds authorizing provider and meeting all other requirements Passed - Last BP in normal range BP Readings from Last 1 Encounters: 06/07/20 102/58 Passed - Theophylline (serum) in normal range and within 360 days THEOPHYLLINE Date Value Ref Range Status 07/27/2019 14 10 - 20 mcg/mL Final KEY PERSON * Telephone Encounter - Camila Mehta RN - 07/14/2020 12:40 PM CST Medication approved and signed per standing order protocol. KEY PERSON documented in this encounter Plan of Treatment Upcoming Encounters Date Type Department Care Team (Late st Contact Info) Description 07/13/2024 1:30 PM SLOT KEY PERSON Office Visit [facility] Family [facility] [address]2 [place] [address] Liz Capellan, DO 2 [facility]. [address] [place] [address] 07/20/2024 2:15 PM SLOT KEY PERSON Office Visit [facility] Medical [facility] - Endocrinology [facility] [address]2 [place] [address] Ana Vivar, MACHINE TECH, AUTO APPRENTICE MECHANIC 2 [facility]. [address] [place] [address] aYsmin Restrepo MD #[address] [place] [address] 07/31/2024 1:00 PM SLOT KEY PERSON [facility] [address] [place] [address] Werner Swift MD [address] [place] [address] Discharge Disposition: Discharged to home or Selfcare 08/03/2024 1:15 PM CDT Office Visit [facility] - Pulmonology & Sleep Medicine [facility] [address] [place] [address] Werner Swift MD [address] [place] [address] 09/02/2024 2:00 PM CDT [facility]ointment [facility] Res[facility] Therapy [address] [place] [phone] Werner Swift MD [address] [place] [address] Discharge Disposition: Discharged to home or Selfcare 10/09/2024 2:30 PM CDT [facility] Visit [facility] [address] [place] [address] Liz Capellan, DO 2 [facility] [place] [address] documented as of this encounter Visit Diagnoses [...] - 19 07/23/2021 07/23/2021 07/24/2021 6:31 AM SLOT KEY PERSON COVID - 19 10/19/2021 10/19/2021 10/20/2021 7:45 AM CDT Respiratory Rule Out - RPA 10/19/2021 10/19/2021 0 10/20/2021 2:10 PM CDT Stenotrophomonas maltophilia Comment:Must have a follow up respiratory sample to remove isolation flag. 10/20/2021 10/20/2021 COVID - 19 04/20/2022 04/20/2022 04/30/2022 12:1 8 AM SLOT KEY PERSON COVID - 19 07/18/2022 07/18/2022 07/28/2022 12:1 6 AM SLOT KEY PERSON COVID - 19 08/21/2022 08/21/2022 08/22/2022 8:31 AM CDT Respiratory Rule Out - RPA 08/21/2022 08/21/2022 0 08/22/2022 3:21 PM CDT COVID - 19 04/18/2023 04/18/2023 04/28/2023 12:1 6 AM SLOT KEY PERSON COVID - 19 07/13/2023 07/13/2023 07/23/2023 12:1 6 AM SLOT KEY PERSON Respiratory Rule Out - RPA 03/17/2024 03/17/2024 1 3:36 PM CDT COVID - 19 04/27/2024 04/27/2024 04/27/2024 2:19 PM SLOT KEY PERSON Assessment Noted Time PHQ-9 Depression Total Score: 2 06/07/19 21 2:34 PM SLOT KEY PERSON documented as of this encounter Care Teams Irrigation System Installer Relationship Specialty Start Date End Date Keith Craft MD PCP - General Family Medicine 01/14/19 12/26/23 Liz Capellan DO [address] [id number] PCP - General Family Medicine 12/27/23 Quang Locke DO Gastroenterology 01/18/16 Bri Rollins, RN [place] Supervisor Public Health Nursing 03/07/21 05/22/23 [place] [id number] [address] 05/25/21 Bri Rollins, RN [place] Nurse Supervisor Public Health Nursing 03/07/21 05/23/23 Werner Swift MD [address] [place] [address] Consulting Physician Pulmonary Disease 01/30/22 documented as of this encounter
--- OUTSIDE RECORDS SUMMARY | 2024-07-10 13:46 | XMS_ITS | Encounter Summary ---
Author Organization [facility] Address [address] [place] [address] Phone Care Team Providers Care Painter Interior Finish Name Role Phone Quang Locke Unavailable [phone] Keith Craft MD Primary Care Provider [phone] Bri Rollins RN Unavailable Unavailable Silvio Schulte MD Unavailable [phone] Bri Rollins RN Unavailable Unavailable Werner Swift MD Unavailable Liz Capellan DO Primary Care Provider [phone] Reason for Visit * Reason Comments Medication Refill Encounter Details Date Type Department Care Team (Late st Contact Info) Description 07/01/2020 Refill [facility] [address] [place] [phone] Yonathan Bonilla MD [address] [address] Medication Refill Social History Tobacco Use Types [...] COVID-19? No / Unsure 07/02/2020 2:53 PM BED BUG EXTERMINATOR documented as of this encounter Miscellaneous Notes * Telephone Encounter - Camila Mehta RN - 07/01/2020 9:33 AM CST Medication failed the protocol, provider to review and approve the medication order if appropriate. Requested Prescriptions Pending Prescriptions Disp Refills diazePAM (VALIUM) 10 MG Tablet [Pharmacy Med Name: DIAZEPAM 10 MG TABLET] 30 Tab 0 Sig: TAKE 1 TABLET BY MOUTH EVERY DAY Not Delegated - Psychiatry: Anxiolytics/Hypnotics Failed - 07/01/2020 9:21 AM Failed - This refill cannot be delegated Passed - Valid encounter within last 6 months Past Office Visits Recent Outpatient Visits 3 weeks ago Mixed hyperlipidemia [facility] Keith Lemus MD 2 months ago Pneumonia of right upper lobe due to infectious organism [facility] Keith Lemus MD 5 months ago Acute non-recurrent maxillary sinusitis [facility] Keith Lemus MD 8 months ago Chronic prescription opiate use [facility] Keith Lemus MD 11 months ago 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 of tanana heart without angina pectoris [facility] Keith Lemus MD Upcoming Appointments Future Appointments In 3 months Keith Craft MD [facility] CHIEF LEARNING OFFICER - Recent and Past Visits Recent Visits Date Type Provider Dept 06/07/20 Office [facility] [place] 04/25/20 Office Visit Keith Craft MD [facility] 02/02/20 Office Visit Keith Craft MD [facility] 11/02/19 Office Visit Keith Craft MD [facility] 07/27/19 Office Visit Keith Craft MD [facility] 06/10/19 Office Visit Brie Denis [facility] 04/20[facility]19 Office Visit [facility] Showing recent visits within past 460 days with a meds authorizing provider and meeting all other requirements Future Appointments No visits were found meeting these conditions. Showing future appointments within next 90 days with a meds authorizing provider and meeting all other requirements BUG EXTERMINATOR documented in this encounter Plan of Treatment Upcoming Encounters Date Type Department Care Team (Late st Contact Info) Description 07/13/2024 1:30 PM BED BUG EXTERMINATOR Office Visit [facility] - Family Medicine - [place] [address] [place] [address] Liz Capellan, DO [address] [address] 07/20/2024 2:15 PM BED BUG EXTERMINATOR [facility] [place] [address]2 [place] [address] Ana Vivar, SPECIAL EDUCATOR, PHOTO PRINT SPECIALIST 2 [facility] [address] [place] [address] Yasmin Restrepo MD #[address] [address] 07/31/2024 1:00 PM BED BUG EXTERMINATOR [facility] [address] [place] [address] Werner Swift MD [address] [place] [address] Discharge Disposition: Discharged to home or Selfcare 08/03/2024 1:15 PM CDT Office Visit [facility] - Pulmonology & Sleep Medicine [facility] [address]2 [place] [address] Werner Swift MD [address] [place] [address] 09/02/2024 2:00 PM CDT Appointment [facility] Respiratory Therapy [address] [place] [address] Werner Swift MD [address] [place] [address] Discharge Disposition: Discharged to home or Selfcare 10/09/2024 2:30 PM CDT Office Visit [facility] Medical [facility] - Family Medicine [facility] [address] [place] [address] Liz Capellan, DO [address] [address] documented as of this encounter Visit Diagnoses Diagnosis Anxiety and depression Dysthymic disorder documented in this encounter Additional Health Concerns Infection Onset Date Last Indicated Resolved Time COVID - 19 01/25/2021 01/25/2021 01/31/2021 8:10 AM CDT Respiratory Rule Out - RPA 01/30/2021 01/30/2021 0 02/01/2021 12:45 AM CDT COVID - 19 07/23/2021 07/23/2021 07/24/2021 6:31 AM BED BUG EXTERMINATOR COVID - 19 10/19/2021 10/19/2021 10/20/2021 7:45 AM CDT Respiratory Rule Out - RPA 10/19/2021 10/19/2021 0 10/20/2021 2:10 PM CDT Stenotrophomonas maltophilia Comment:Must have a follow up respiratory sample to remove isolation flag. 10/20/2021 10/20/2021 COVID - 19 04/20/2022 04/20/2022 04/30/2022 12:1 8 AM BED BUG EXTERMINATOR COVID - 19 07/18/2022 07/18/2022 07/28/2022 12:1 6 AM BED BUG EXTERMINATOR COVID - 19 08/21/2022 08/21/2022 08/22/2022 8:31 AM CDT Respiratory Rule Out - RPA 08/21/2022 08/21/2022 0 08/22/2022 3:21 PM CDT COVID - 19 04/18/2023 04/18/2023 04/28/2023 12:1 6 AM BED BUG EXTERMINATOR COVID - 19 07/13/2023 07/13/2023 07/23/2023 12:1 6 AM BED BUG EXTERMINATOR Respiratory Rule Out - RPA 03/17/2024 03/17/2024 1 3:36 PM CDT COVID - 19 04/27/2024 04/27/2024 04/27/2024 2:19 PM BED BUG EXTERMINATOR Assessment Noted Time PHQ-9 Depression Total Score: 2 06/07/19 21 2:34 PM BED BUG EXTERMINATOR documented as of this encounter Care Teams Painter Interior Finish Relationship Specialty Start Date End Date Keith Craft MD PCP - General Family Medicine 01/14/19 12/26/23 Liz Capellan DO 2 [facility] [address] [address] PCP - General Family Medicine 12/27/23 Quang Locke DO Gastroenterology 01/18/16 Bri Rollins RN [place] Technical Support Agent 03/07/21 05/22/23 [place] [address] [address] 05/25/21 Bri Rollins RN [place] Nurse Technical Support Agent 03/07/21 05/23/23 Werner Swift MD #[address] [place] [address] Consulting Physician Pulmonary Disease 01/30/22 documented as of this encounter
--- OUTSIDE RECORDS SUMMARY | 2024-07-10 13:46 | XMS_ITS | Encounter Summary ---
Author Organization [facility] Address [address] [place] [address] Phone Care Team Providers Care Screw Machine Operator Single Spindle Name Role Phone Quang Locke Unavailable [phone] Silvio Schulte MD Unavailable [phone] Werner Swift MD Unavailable Liz Capellan DO Primary Care Provider [phone] Reason for Visit * Reason Comments Medication Refill Encounter Details Date Type Department Care Team (Late st Contact Info) Description 01/09/2024 Refill [facility] - Family Medicine [facility] #2 [place] [phone] Keith Craft MD [address] [place] [address] Medication Refill Social History Tobacco Use Types Packs/Day Years Used Date Smoking Tobacco: Former Cigarettes 2 50 1 - 03/16/2018 Smokeless Tobacco: Never Comments:Still uses nictoine patches and gum Alcohol Use Standard Drinks/Week Comments No 0 (1 standard drink = 0.6 oz pur e alcohol) [facility] Utilities Answer Date Recorded In the past [...] attend chur ch or hoahaoism services? Never 12/27/2023 Do you belong to [...] Score - Questions 1-9 4 10/25 [facility] - Occupational [...] place to sleep or slept in a group home (including now)? No 07/13/2023 Housing Stability Vital Sign Answer Richar e Recorded In the last 12 months, was t here a time when you were not able to pay the mortgage or rent on time? No 12/27/2023 In the past 12 months, how m any times have you moved where you were living? 0 12/27/2023 At any time in the past 12 m [facility], were you homeless or living in a group home (including now)? No 12/27/2023 Education Answer Date [...] Telephone Encounter - Gloria Cornejo RN - 01/10/2024 4:30 PM CDT The original prescriptions were reordered on 01/10/2024 by Liz Capellan DO. * Telephone Encounter - Gloria Cornejo RN - 01/10/2024 9:26 AM CDT duplicates documented in this encounter Plan of Treatment Upcoming Encounters Date Type Department Care Team (Late st Contact Info) Description 07/13/2024 1:30 PM CATERING SERVER [facility] [place] [address] [place] [address] Liz Capellan DO 2 [facility] [address] [place] [address] 07/20/2024 2:15 PM CATERING SERVER [facility] [place] [address]2 [place] [address] Ana Vivar, EXECUTIVE CYBER LEADER, GASTROENTEROLOGIST 2 [facility] [address] [place] [address] Yasmin Restrepo MD #[address] [address] 07/31/2024 1:00 PM CATERING SERVER [facility] [address] [place] [address] Werner Swift MD [address] [place] [address] Discharge Disposition: Discharged to home or Selfcare 08/03/2024 1:15 PM CDT [facility] #2 [place] [address] Werner Swift MD #2 [place] [address] 09/02/2024 2:00 PM CDT [facility] [address] [place] [address] Werner Swift MD [address] [place] [address] Discharge Disposition: Discharged to home or Selfcare 10/09/2024 2:30 PM CDT Office Visit [facility] Medical Group - Family [facility] #2 [place] [address] Liz Capellan, DO [address] [address] documented as of this encounter Goals Goal [...] Zones/Action plan education. I will notify my Screedman if my symptoms fall in the y ellow zone . I will consider receiving an influenza and pneumonia vaccination, if applicable. -I will call the office if I experience any symptoms listed above to discuss at home management options. documented as of this encounter Visit Diagnoses Diagnosis Anxiety and depression Dysthymic disorder Chronic prescription opiate use Chronic low back [...] - 19 04/27/2024 04/27/2024 04/27/2024 2:19 PM CATERING SERVER Assessment Noted Time PHQ-9 Depression Total Score: 4 11/08/19 24 9:33 AM CDT documented as of this encounter Care Teams Screw Machine Operator Single Spindle Relationship Specialty Start Date End Date Liz Capellan DO 2 [facility] [address] [address] PCP - General Family Medicine 12/27/23 Quang Locke DO Gastroenterology 01/18/16 [place] [address] [address] 05/25/21 Werner Swift MD #2 [place] [address] Consulting Physician Pulmonary Disease 01/30/22 documented as of this encounter
--- OUTSIDE RECORDS SUMMARY | 2024-07-10 13:46 | XMS_ITS | Encounter Summary ---
Author Organization [facility] Address [address] [place] [address] Phone Care Team Providers Care Automotive Light Mechanic Name Role Phone Quang Locke Unavailable [phone] Silvio Schulte MD Unavailable Werner Swift MD Unavailable Liz Capellan DO Primary Care Provider [phone] Reason for Visit * Reason Comments Medication Refill Encounter Details Date Type Department Care Team (Late st Contact Info) Description 02/19/[address] [facility] - [facility] #2 [place] [phone] Keith Craft MD #1 [place] [address] Medication Refill Social History Tobacco Use Types Packs/Day Years Used Date Smoking Tobacco: Former Cigarettes 2 50 1 - 03/16/2018 Smokeless Tobacco: Never Comments:Still uses nictoine patches and gum Alcohol Use Standard Drinks/Week Comments No 0 (1 standard drink = 0.6 oz pur e alcohol) [facility] Utilities Answer Date Recorded In the [...] often do you attend chur ch or holiness services? Never 12/27/2023 Do you belong to any clubs o r organizations such as lutheran groups, unions, fraternal or athletic groups, or [...] Total Score - Questions 1-9 4 10/25 [facility] - [...] in a long-term (including now)? No 07/13/2023 Housing Stability Vital [...] were you homeless or living in a long-term (including now)? No 12/27/2023 Education Answer Date [...] Telephone Encounter - Gloria Cornejo RN - 02/19/2024 1:11 PM CDT Images from the original note were not included. Name from pharmacy: XIGDUO XR 5-1000MG TABLET ER 24HR Will file in chart as: Xigduo XR 5-1000 MG TABLET SR 24 HR The original prescription was discontinued on 02/04/2024 by Liz Capellan DO OV note 02/04/24 - Stop xigduo documented in this encounter Plan of Treatment Upcoming Encounters Date Type Department Care Team (Late st Contact Info) Description 07/13/2024 1:30 PM AIR BRUSH DECORATOR Office Visit [facility] - Family Medicine - [place] #2 [facility] [place] [phone] Liz Capellan DO 2 [facility] [address] [place] [address] 07/20/2024 2:15 PM AIR BRUSH DECORATOR [facility] [place] #2 [facility] [place] [phone] Ana Vivar, HONEY PROCESSOR, RIP/MOULD OPERATOR 2 [facility] [address] [place] [address] Yasmin Restrepo MD #[address] [phone] 07/31/2024 1:00 PM AIR BRUSH DECORATOR Appointment [facility] [address] [place] [address] Werner Swift MD #2 [place] [phone] Discharge Disposition: Discharged to home or Selfcare 08/03/2024 1:15 PM CDT [facility] #2 [facility] [place] [phone] Werner Swift MD #2 [place] [address] 09/02/2024 2:00 PM CDT [facility] [address] [place] [address] Werner Swift MD #2 [place] [address] Discharge Disposition: Discharged to home or Selfcare 10/09/2024 2:30 PM CDT Office Visit [facility] - Family [facility] #2 [place] [address] Liz Capellan, DO [address] [address] documented as of this encounter Goals Goal [...] Zones/Action plan education. I will notify my Metal Machine Setter if my symptoms fall in the y [...] - 19 04/27/2024 04/27/2024 04/27/2024 2:19 PM AIR BRUSH DECORATOR Assessment Noted Time PHQ-9 Depression Total Score: 4 11/08/19 24 9:33 AM CDT documented as of this encounter Care Teams Automotive Light Mechanic Relationship Specialty Start Date End Date Liz Capellan DO [address] [address] PCP - General Family Medicine 12/27/23 Quang Locke DO Gastroenterology 01/18/16 [place] [address] [address] 05/25/21 Werner Swift MD #2 [place] [address] Consulting Physician Pulmonary Disease 01/30/22 documented as of this encounter
--- OUTSIDE RECORDS SUMMARY | 2024-07-10 13:46 | XMS_ITS | Encounter Summary ---
Author Organization [facility] Address [address] [place] [address] Phone Care Team Providers Care Sorter Packer Name Role Phone Quang Locke Unavailable [phone] Keith Craft MD Primary Care Provider [phone] Bri Rollins RN Unavailable Unavailable Silvio Schulte MD Unavailable [phone] Bri Rollins RN Unavailable Unavailable Werner Swift MD Unavailable Liz Capellan DO Primary Care Provider [phone] Reason for Visit * Reason Comments Medication Refill Encounter Details Date Type Department Care Team (Late st Contact Info) Description 03/03/2020 Refill [facility] - Family Medicine [facility] #2 [place] [address] Keith Craft MD #1 [place] [address] Medication Refill Social History Tobacco Use Types [...] encounter Miscellaneous Notes * Telephone Encounter - Celeste Rollins RN - 03/04/2020 1:34 PM CDT Requested Prescriptions Pending Prescriptions Disp Refills diazePAM (VALIUM) 10 MG Tablet [Pharmacy Med Name: DIAZEPAM 10 MG TABLET] 30 Tab 0 Sig: TAKE 1 TABLET BY MOUTH EVERY DAY Not Delegated - Psychiatry: Anxiolytics/Hypnotics Failed - 03/03/2020 1:09 PM Failed - This refill cannot be delegated Passed - Valid encounter within last 6 months Past Office Visits Recent Outpatient Visits 1 month ago Acute non-recurrent maxillary sinusitis [facility] - Keith Jenkins MD 4 months ago Chronic prescription opiate use [facility] Keith Lemus MD 7 months ago Coronary artery disease involving [place] coronary artery of [place] heart without angina pectoris [facility] Keith Lemus MD 8 months ago COPD exacerbation (HCC) [facility] Brie Vieira PAC 10 months ago Type 2 diabetes mellitus with diabetic neuropathy, with long-term current use of insulin (HCC) [facility] Keith Lemus MD Upcoming Appointments Future Appointments In 3 months Keith Craft MD [facility] YULIA Mckeon CHARGING BOARD OPERATOR - Recent and Past Visits Recent Visits Date Type Provider Dept 02/02/20 Office Visit Keith Craft [facility] [place] 11/02/19 Office Visit Keith Craft MD [facility] [place] 07/27/19 Office Visit Keith Craft MD [facility] [place] 06/10/19 Office Visit Analiamanny Brie PalmaNICOLE [facility] [place] 04/20/19 Office Visit Keith Craft MD [facility] [place] 01/14/19 [facility] Showing recent visits within past 460 days [...] st Contact Info) Description 07/13/2024 1:30 PM APPLIED EXERCISE PHYSIOLOGIST Office Visit [facility] - Family Medicine - [place] #2 [place] [address] Liz Capellan L, DO [address] [address] 07/20/2024 2:15 PM APPLIED EXERCISE PHYSIOLOGIST [facility] [place] #2 [place] [address] Ana Vivar, SENIOR CLINICAL DATA ANALYST, MACHINIST APPRENTICE WOOD [address] [address] Yasmin Restrepo MD #[address] [address] 07/31/2024 1:00 PM APPLIED EXERCISE PHYSIOLOGIST [facility] [address] [place] [address] Werner Swift MD #2 [place] [address] Discharge Disposition: Discharged to home or Selfcare 08/03/2024 1:15 PM CDT [facility] #2 [place] [address] Werner Swift MD #2 [place] [address] 09/02/2024 2:00 PM CDT Appointment [facility] Respiratory Therapy 1 [place] [address] Werner Swift MD #2 [place] [address] Discharge Disposition: Discharged to home or Selfcare 10/09/2024 2:30 PM CDT Office Visit [facility] - Family Medicine [facility] #2 [place] [address] Liz Capellan, DO [address] [address] documented as of this encounter Visit Diagnoses Diagnosis Anxiety and depression Dysthymic disorder documented in this encounter Additional Health Concerns Infection Onset Date Last Indicated Resolved Time COVID - 19 01/25/2021 01/25/2021 01/31/2021 8:10 AM CDT Respiratory Rule Out - RPA 01/30/2021 01/30/2021 0 02/01/2021 12:45 AM CDT COVID - 19 07/23/2021 07/23/2021 07/24/2021 6:31 AM APPLIED EXERCISE PHYSIOLOGIST COVID - 19 10/19/2021 10/19/2021 10/20/2021 7:45 AM CDT Respiratory Rule Out - RPA 10/19/2021 10/19/2021 0 10/20/2021 2:10 PM CDT Stenotrophomonas maltophilia Comment:Must have a follow up respiratory sample to remove isolation flag. 10/20/2021 10/20/2021 COVID - 19 04/20/2022 04/20/2022 04/30/2022 12:1 8 AM APPLIED EXERCISE PHYSIOLOGIST COVID - 19 07/18/2022 07/18/2022 07/28/2022 12:1 6 AM APPLIED EXERCISE PHYSIOLOGIST COVID - 19 08/21/2022 08/21/2022 08/22/2022 8:31 AM CDT Respiratory Rule Out - RPA 08/21/2022 08/21/2022 0 08/22/2022 3:21 PM CDT COVID - 19 04/18/2023 04/18/2023 04/28/2023 12:1 6 AM APPLIED EXERCISE PHYSIOLOGIST COVID - 19 07/13/2023 07/13/2023 07/23/2023 12:1 6 AM APPLIED EXERCISE PHYSIOLOGIST Respiratory Rule Out - RPA 03/17/2024 03/17/2024 1 3:36 PM CDT COVID - 19 04/27/2024 04/27/2024 04/27/2024 2:19 PM APPLIED EXERCISE PHYSIOLOGIST Assessment Noted Time PHQ-9 Depression Total Score: 1 06/10/19 20 1:03 PM APPLIED EXERCISE PHYSIOLOGIST documented as of this encounter Care Teams Sorter Packer Relationship Specialty Start Date End Date Keith Craft MD PCP - General Family Medicine 01/14/19 12/26/23 Liz Capellan DO [address] [address] PCP - General Family Medicine 12/27/23 Quang Locke DO Gastroenterology 01/18/16 Bri Rollins RN [place] Ultrasound Applications Specialist 03/07/21 05/22/23 [place] [id number] [address] 05/25/21 Bri Rollins RN [place] Nurse Ultrasound Applications Specialist 03/07/21 05/23/23 Werner Swift MD #2 [place] [address] Consulting Physician Pulmonary Disease 01/30/22 documented as of this encounter
--- OUTSIDE RECORDS SUMMARY | 2024-07-10 13:46 | XMS_ITS | Encounter Summary ---
Author Organization [facility] Address [address] [place] [address] Phone Care Team Providers Care Sql Report Writer Name Role Phone Quang Locke Unavailable [phone] Keith Craft MD Primary Care Provider [phone] Bri Rollins RN Unavailable Unavailable Silvio Schulte MD Unavailable [phone] Bri Rollins RN Unavailable Unavailable Werner Swift MD Unavailable Liz Capellan DO Primary Care Provider [phone] Reason for Visit * Reason Comments Medication Refill Encounter Details Date Type Department Care Team (Late st Contact Info) Description 06/01/2020 Refill [facility] - Family Medicine [facility] #2 [place] [address] Keith Craft MD #1 [place] [address] Medication Refill Social History Tobacco Use Types [...] have Coronavirus / COVID-19? No / Unsure 05/24/2020 1:11 PM FOOD SERVICE UTILITY WORKER documented as of this encounter Miscellaneous Notes * Telephone Encounter - Yonathan Bonilla MD - 06/01/2020 3:58 PM CST Prescription pending signature SERVICE UTILITY WORKER * Telephone Encounter - Gloria Cornejo RN - 06/01/2020 3:39 PM CST [place] 05/03/20 Medication failed the protocol, provider to review and approve the medication order if appropriate. Requested Prescriptions Pending Prescriptions Disp Refills diazePAM (VALIUM) 10 MG Tablet [Pharmacy Med Name: DIAZEPAM 10 MG TABLET] 30 Tab 0 Sig: TAKE 1 TABLET BY MOUTH EVERY DAY Not Delegated - Psychiatry: Anxiolytics/Hypnotics Failed - 06/01/2020 11:59 AM Failed - This refill cannot be delegated Passed - Valid encounter within last 6 months Past Office Visits Recent Outpatient Visits 1 month ago Pneumonia of right upper lobe due to infectious organism [facility] - Keith Jenkins MD 4 months ago Acute non-recurrent maxillary sinusitis [facility] Keith Lemus MD 7 months ago Chronic prescription opiate use [facility] Keith Lemus MD 10 months ago Coronary artery disease involving [place] coronary artery of [place] heart without angina pectoris [facility] Keith Lemus MD 11 months ago COPD exacerbation (HCC) [facility] Brie Denis, NICOLE Upcoming Appointments Future Appointments In 6 days Keith Craft MD [facility] [place], [facility] BRAKE REPAIR SUPERVISOR - Recent and Past Visits Recent Visits Date Type Provider Dept 04/25/20 Office Visit Keith Craft MD [facility] 02/02/20 Office Visit Keith Craft MD [facility] 11/02/19 Office Visit Keith Craft MD [facility] [place] 07/27/19 Office Visit Keith Craft MD [facility] 06/10/19 Office Visit Brie Denis, [facility] [place] 04/20/19 Office Visit Keith Craft MD [facility] [place] Showing recent visits within past 460 days with a meds authorizing provider and meeting all other requirements Future Appointments Date Type Provider Dept 06/07/20 Appointment Keith Craft MD [facility] [place] Showing future appointments within next 90 days with a meds authorizing provider and meeting all other requirements SERVICE UTILITY WORKER documented in this encounter Plan of Treatment Upcoming Encounters Date Type Department Care Team (Late st Contact Info) Description 07/13/2024 1:30 PM FOOD SERVICE UTILITY WORKER Office Visit [facility] #2 [place] [address] Liz Capellan, DO [address] [address] 07/20/2024 2:15 PM FOOD SERVICE UTILITY WORKER Office Visit [facility] Endocrinology [facility] #2 [place] [address] Ana Vivar, CREDIT UNION EXAMINER, PORT DRIER [address] [address] Yasmin Restrepo MD #[address] [phone] 07/31/2024 1:00 PM FOOD SERVICE UTILITY WORKER [facility] [address] [place] [address] Werner Swift MD #2 [place] [address] Discharge Disposition: Discharged to home or Selfcare 08/03/2024 1:15 PM CDT Office Visit [facility] - Pulmonology & Sleep Medicine [facility] #2 [place] [address] Werner Swift MD #2 [place] [address] 09/02/2024 2:00 PM CDT [facility]ointment [facility] 1 [place] [address] Werner Swift MD #2 [place] [address] Discharge Disposition: Discharged to home or Selfcare 10/09/2024 2:30 PM CDT Office Visit [facility] - Family Medicine - [place] #2 [place] [address] Liz Capellan, DO [address] [address] documented as of this encounter Visit Diagnoses [...] Total Score: 1 06/10/19 20 1:03 PM FOOD SERVICE UTILITY WORKER documented as of this encounter Care Teams Sql Report Writer Relationship Specialty Start Date End Date Keith Craft MD PCP - General Family Medicine 01/14/19 12/26/23 Liz Capellan DO 2 [facility] [place] [address] PCP - General Family Medicine 12/27/23 Quang Locke DO Gastroenterology 01/18/16 Bri Rollins, KATEY [place] Physician Relations Specialist 03/07/21 05/22/23 [place] [address] [address] 05/25/21 Bri Rollins RN [place] Nurse Physician Relations Specialist 03/07/21 05/23/23 Werner Swift MD #2 [place] [address] Consulting Physician Pulmonary Disease 01/30/22 documented as of this encounter
--- OUTSIDE RECORDS SUMMARY | 2024-07-10 13:46 | XMS_ITS | Encounter Summary ---
Author Organization [facility] Address [address] [place] [address] Phone Care Team Providers Care Administrative Supervisor Name Role Phone Quang Locke Unavailable [phone] Kieth Craft MD Primary Care Provider [phone] Bri Rollins RN Unavailable Unavailable Silvio Schulte MD Unavailable [phone] Bri Rollins RN Unavailable Unavailable Werner Swift MD Unavailable Liz Capellan DO Primary Care Provider [phone] Reason for Visit * Reason Comments Medication Refill Encounter Details Date Type Department Care Team (Late st Contact Info) Description 04/29/2020 Refill [facility] - Family Medicine [facility] #2 [place] [address] Keith Craft MD #1 [place] [address] Medication Refill Social History Tobacco Use Types [...] COVID-19? No / Unsure 04/25/2020 1:42 PM ELEMENTARY READING SPECIALIST documented as of this encounter Miscellaneous Notes * Telephone Encounter - Gloria Cornejo RN - 04/29/2020 1:16 PM CST Last OV 04/25/20 - follow up 06/07/20 - last Rx 04/01/20 Medication failed the protocol, provider to review and approve the medication order if appropriate. Requested Prescriptions Pending Prescriptions Disp Refills diazePAM (VALIUM) 10 MG Tablet [Pharmacy Med Name: DIAZEPAM 10 MG TABLET] 30 Tab 0 Sig: TAKE 1 TABLET BY MOUTH EVERY DAY Not Delegated - Psychiatry: Anxiolytics/Hypnotics Failed - 04/29/2020 11:55 AM Failed - This refill cannot be delegated Passed - Valid encounter within last 6 months Past Office Visits Recent Outpatient Visits 4 days ago Pneumonia of right upper lobe due to infectious organism [facility] Keith Lemus MD 2 months ago Acute non-recurrent maxillary sinusitis [facility] Keith Jenkins MD 5 months ago Chronic prescription opiate use [facility] Keith Jenkins MD 9 months ago Coronary artery disease involving [place] coronary artery of [place] heart without angina pectoris [facility] Keith Lemus MD 10 months ago COPD exacerbation (HCC) [facility] Brie Vieira, PAC Upcoming Appointments Future Appointments In 1 month Keith Craft MD [facility] KRISTOFER TesfayeC NEGATIVE STRIPPER - Recent and Past Visits Recent Visits Date Type Provider Dept 04/25/20 Office Visit Keith Craft MD [facility] [place] 02/02/20 Office Visit Keith Craft MD [facility] 11/02/19 Office Visit Keith Craft MD [facility] [place] 07/27/19 Office Visit Keith Craft MD [facility] 06/10/19 Office Visit Brie Denis, [facility] Showing recent visits within past 460 days with a meds authorizing provider and meeting all other requirements Future Appointments Date Type Provider Dept 06/07/20 Appointment Keith Craft MD [facility] Showing future appointments within next 90 days with a meds authorizing provider and meeting all other requirements ENTARY READING SPECIALIST documented in this encounter Plan of Treatment Upcoming Encounters Date Type Department Care Team (Late st Contact Info) Description 07/13/2024 1:30 PM ELEMENTARY READING SPECIALIST Office Visit [facility] Family Medicine - [place] #2 [place] [address] Liz Capellan L, DO [address] [address] 07/20/2024 2:15 PM ELEMENTARY READING SPECIALIST Office Visit [facility] - Endocrinology - [place] #2 [place] [address] Ana Vivar, HEALTH ACTUARY, EDITOR CONTINUITY AND SCRIPT 2 [facility] [address] [place] [address] Yasmin Restrepo MD #[address] [address] 07/31/2024 1:00 PM ELEMENTARY READING SPECIALIST Appointment [facility] CT [address] [facility] [place] [address] Werner Swift MD #2 [place] [address] Discharge Disposition: Discharged to home or Selfcare 08/03/2024 1:15 PM CDT Office Visit [facility] - Pulmonology & Sleep Medicine [facility] #2 [place] [address] Werner Swift MD #2 [place] [address] 09/02/2024 2:00 PM CDT Appointment [facility] Respiratory Therapy [address] [facility] [place] [address] Werner Swift MD #2 [place] [address] Discharge Disposition: Discharged to home or Selfcare 10/09/2024 2:30 PM CDT Office Visit [facility] - Family Medicine [facility] #2 [place] [address] Liz Capellan, [address] [address] documented as of this encounter Visit Diagnoses Diagnosis Anxiety and depression Dysthymic disorder documented in this encounter Additional Health Concerns Infection Onset Date Last Indicated Resolved Time COVID - 19 01/25/2021 01/25/2021 01/31/2021 8:10 AM CDT Respiratory Rule Out - RPA 01/30/2021 01/30/2021 0 02/01/2021 12:45 AM CDT COVID - 19 07/23/2021 07/23/2021 07/24/2021 6:31 AM ELEMENTARY READING SPECIALIST COVID - 19 10/19/2021 10/19/2021 10/20/2021 7:45 AM CDT Respiratory Rule Out - RPA 10/19/2021 10/19/2021 0 10/20/2021 2:10 PM CDT Stenotrophomonas maltophilia Comment:Must have a follow up respiratory sample to remove isolation flag. 10/20/2021 10/20/2021 COVID - 19 04/20/2022 04/20/2022 04/30/2022 12:1 8 AM ELEMENTARY READING SPECIALIST COVID - 19 07/18/2022 07/18/2022 07/28/2022 12:1 6 AM ELEMENTARY READING SPECIALIST COVID - 19 08/21/2022 08/21/2022 08/22/2022 8:31 AM CDT Respiratory Rule Out - RPA 08/21/2022 08/21/2022 0 08/22/2022 3:21 PM CDT COVID - 19 04/18/2023 04/18/2023 04/28/2023 12:1 6 AM ELEMENTARY READING SPECIALIST COVID - 19 07/13/2023 07/13/2023 07/23/2023 12:1 6 AM ELEMENTARY READING SPECIALIST Respiratory Rule Out - RPA 03/17/2024 03/17/2024 1 3:36 PM CDT COVID - 19 04/27/2024 04/27/2024 04/27/2024 2:19 PM ELEMENTARY READING SPECIALIST Assessment Noted Time PHQ-9 Depression Total Score: 1 06/10/19 20 1:03 PM ELEMENTARY READING SPECIALIST documented as of this encounter Care Teams Administrative Supervisor Relationship Specialty Start Date End Date Keith Craft MD PCP - General Family Medicine 01/14/19 12/26/23 Liz Capellan DO 2 [facility] [address] [address] PCP - General Family Medicine 12/27/23 Quang Locke DO Gastroenterology 01/18/16 Bri Rollins RN [place] Display Fabricator 03/07/21 05/22/23 [place] [address] [address] 05/25/21 Bri Rollins RN [place] Nurse Display Fabricator 03/07/21 05/23/23 Werner Swift MD #2 [place] [address] Consulting Physician Pulmonary Disease 01/30/22 documented as of this encounter
--- OUTSIDE RECORDS SUMMARY | 2024-07-10 13:46 | XMS_ITS | Encounter Summary ---
Author Organization [facility] Address [address] [place] [address] Phone Care Team Providers Care Gamemaster Name Role Phone Quang Locke Unavailable [phone] Keith Craft MD Primary Care Provider [phone] Bri Rollins RN Unavailable Unavailable Silvio Schulte MD Unavailable [phone] Bri Rollins RN Unavailable Unavailable Werner Swift MD Unavailable Liz Capellan DO Primary Care Provider [phone] Reason for Visit * Reason Comments Medication Refill Encounter Details Date Type Department Care Team (Late st Contact Info) Description 07/26/2020 [facility]ill [facility] #2 [place] [address] Keith Craft MD #1 [place] [address] Medication Refill Social History Tobacco Use Types [...] COVID-19? No / Unsure 07/02/2020 2:53 PM FOAMING MACHINE OPERATOR documented as of this encounter Miscellaneous Notes * Telephone Encounter - Camila Mehta RN - 07/26/2020 10:30 AM CST Per nursing clinical judgement, provider to review and approve the medication(s) order(s) if appropriate. Requested Prescriptions Pending Prescriptions Disp Refills ibuprofen (MOTRIN) 800 MG Tablet [Pharmacy Med Name: IBUPROFEN 800 MG TABLET] 270 Tablet 3 Sig: TAKE 1 TABLET BY MOUTH EVERY 6 HOURS NEEDED FOR MODERATE OR MORE SEVERE PAIN. 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 [facility] Keith Lemus MD Upcoming Appointments Future Appointments In 4 days [facility] 2ND VACCINE CLINIC [facility] In 2 months Keith Craft MD [facility] - Family [facility] [place], [facility] CLOTH OPENER HAND - Recent and Past Visits Recent Visits Date Type Provider Dept 06/07/20 Office Visit Keith Craft MD [facility] 04/25/20 Office Visit Keith Craft MD [facility] 02/02/20 Office Visit Keith Craft MD [facility] 11/02/19 Office Visit Keith Craft MD [facility] 07/27/19 Office Visit Keith Craft MD [facility] 06/10/19 Office Visit Brie Denis PAC [facility] Showing recent visits within past 460 days with a meds authorizing provider and meeting all other requirements Future Appointments Date Type Provider Dept 10/04/20 Appointment Keith Craft MD [facility] Showing future appointments within next 90 days with a meds authorizing provider and meeting all other requirements ING MACHINE OPERATOR documented in this encounter Plan of Treatment Upcoming Encounters Date Type Department Care Team (Late st Contact Info) Description 07/13/2024 1:30 PM FOAMING MACHINE OPERATOR Office Visit [facility] Family Medicine - [place] #2 [facility] [address] Liz Capellan L, DO 2 [facility] [address] [place] [address] 07/20/2024 2:15 PM FOAMING MACHINE OPERATOR Office Visit [facility] - Endocrinology - [place] [address]2 [facility] [address] Ana Vivar, SPEEDER OPERATOR, REWEAVER 2 [facility] [address] [place] [address] Yasmin Restrepo MD #[address] [place] [address] 07/31/2024 1:00 PM FOAMING MACHINE OPERATOR Appointment [facility] [address] [place] [address] Werner Swift MD [address]2 [place] [address] Discharge Disposition: Discharged to home or Selfcare 08/03/2024 1:15 PM CDT Office Visit [facility] - Pulmonology & Sleep Medicine [facility] #2 [place] [address] Werner Swift MD #2 [place] [address] 09/02/2024 2:00 PM CDT Appointment [facility] Respiratory Therapy [address] [place] [address] Werner Swift MD #2 [place] [address] Discharge Disposition: Discharged to home or Selfcare 10/09/2024 2:30 PM CDT Office Visit [facility] - Family Medicine [facility] [address] [place] [address] Liz Capellan, DO [address] [address] documented as of this encounter Visit Diagnoses Diagnosis Chronic low back pain, unspecified back pain laterality, unspecified whether sciatica present documented in this encounter Additional Health Concerns Infection Onset Date Last Indicated Resolved Time COVID - 19 01/25/2021 01/25/2021 01/31/2021 8:10 AM CDT Respiratory Rule Out - RPA 01/30/2021 01/30/2021 0 02/01/2021 12:45 AM CDT COVID - 19 07/23/2021 07/23/2021 07/24/2021 6:31 AM FOAMING MACHINE OPERATOR COVID - 19 10/19/2021 10/19/2021 10/20/2021 7:45 AM CDT Respiratory Rule Out - RPA 10/19/2021 10/19/2021 0 10/20/2021 2:10 PM CDT Stenotrophomonas maltophilia Comment:Must have a follow up respiratory sample to remove isolation flag. 10/20/2021 10/20/2021 COVID - 19 04/20/2022 04/20/2022 04/30/2022 12:1 8 AM FOAMING MACHINE OPERATOR COVID - 19 07/18/2022 07/18/2022 07/28/2022 12:1 6 AM FOAMING MACHINE OPERATOR COVID - 19 08/21/2022 08/21/2022 08/22/2022 8:31 AM CDT Respiratory Rule Out - RPA 08/21/2022 08/21/2022 0 08/22/2022 3:21 PM CDT COVID - 19 04/18/2023 04/18/2023 04/28/2023 12:1 6 AM FOAMING MACHINE OPERATOR COVID - 19 07/13/2023 07/13/2023 07/23/2023 12:1 6 AM FOAMING MACHINE OPERATOR Respiratory Rule Out - RPA 03/17/2024 03/17/2024 1 3:36 PM CDT COVID - 19 04/27/2024 04/27/2024 04/27/2024 2:19 PM FOAMING MACHINE OPERATOR Assessment Noted Time PHQ-9 Depression Total Score: 2 06/07/19 21 2:34 PM FOAMING MACHINE OPERATOR documented as of this encounter Care Teams Gamemaster Relationship Specialty Start Date End Date Keith Craft MD PCP - General Family Medicine 01/14/19 12/26/23 Liz Capellan DO [address] [address] PCP - General Family Medicine 12/27/23 Quang Locke DO Gastroenterology 01/18/16 Bri Rollins, KATEY [place] Getter Welder 03/07/21 05/22/23 [place] [id number] [address] 05/25/21 Bri Rollins RN [place] Nurse Getter Welder 03/07/21 05/23/23 Werner Swift MD #2 [place] [address] Consulting Physician Pulmonary Disease 01/30/22 documented as of this encounter
--- OUTSIDE RECORDS SUMMARY | 2024-07-10 13:46 | XMS_ITS | Encounter Summary ---
Author Organization [facility] Address [address] [place] [address] Phone Care Team Providers Care Investment Accountant Name Role Phone Quang Locke Unavailable [phone] Keith Craft MD Primary Care Provider [phone] Bri Rollins RN Unavailable Unavailable Silvio Schulte MD Unavailable [phone] Bri Rollins RN Unavailable Unavailable Werner Swift MD Unavailable Liz Capellan DO Primary Care Provider [phone] Reason for Visit * Reason Comments Medication Refill Encounter Details Date Type Department Care Team (Late st Contact Info) Description 03/31/2020 Refill [facility] - Family Medicine [facility] #2 [place] [address] Keith Craft MD #1 [place] [address] Medication Refill Social History Tobacco Use Types [...] encounter Miscellaneous Notes * Telephone Encounter - Maddie Gonzalez RN - 03/31/2020 11:29 AM CST Medication failed the protocol, provider to review and approve the medication order if appropriate. Requested Prescriptions Pending Prescriptions Disp Refills diazePAM (VALIUM) 10 MG Tablet [Pharmacy Med Name: DIAZEPAM 10 MG TABLET] 30 Tab 0 Sig: TAKE 1 TABLET BY MOUTH EVERY DAY Not Delegated - Psychiatry: Anxiolytics/Hypnotics Failed - 03/31/2020 9:20 AM Failed - This refill cannot be delegated Passed - Valid encounter within last 6 months Past Office Visits Recent Outpatient Visits 1 month ago Acute non-recurrent maxillary sinusitis [facility] Keith Lemus MD 5 months ago Chronic prescription opiate use [facility] Keith Lemus MD 8 months ago Coronary artery disease involving [place] coronary artery of [place] heart without angina pectoris [facility] Keith Lemus MD 9 months ago COPD exacerbation (HCC) [facility] 11 months ago Type 2 diabetes mellitus with diabetic neuropathy, with long-term current use of insulin (HCC) [facility] Keith Lemus MD Upcoming Appointments Future Appointments In 2 months Keith Craft MD [facility] GROUNDS SUPERVISOR - Recent and Past Visits Recent Visits Date Type Provider Dept 02/02/20 Office Visit Keith Craft MD [facility] 11/02/19 Office Visit Keith Craft MD [facility] 07/27/19 Office Visit [facility] 06/10/19 Office Visit Brie Denis PAC [facility] 04/20/19 Office Visit [facility] MD [facility] [place] 01/14/19 Office Visit Keith Craft MD [facility] Showing recent visits within past 460 days with a meds authorizing provider and meeting all other requirements Future Appointments Date Type Provider Dept 06/07/20 Appointment Keith Craft MD [facility] Showing future appointments within next 90 days with a meds authorizing provider and meeting all other requirements RIGGER documented in this encounter Plan of Treatment Upcoming Encounters Date Type Department Care Team (Late st Contact Info) Description 07/13/2024 1:30 PM YARD RIGGER Office Visit [facility] - Family Medicine - [place] #2 [facility] [place] [address] Liz Capellan, DO 2 [facility] [address] [place] [address] 07/20/2024 2:15 PM YARD RIGGER [facility] [place] [facility]2 [place] [address] Ana Vivar, POWDER EXPERT, TAIL RIPPER 2 [facility] [address] [place] [address] Yasmin Restrepo MD #[address] [place] [address] 07/31/2024 1:00 PM YARD RIGGER [facility] [address] [place] [address] Werner Swift MD #2 [place] [address] Discharge Disposition: Discharged to home or Selfcare 08/03/2024 1:15 PM CDT [facility] [place] #2 [place] [address] Werner Swift MD #2 [place] [address] 09/02/2024 2:00 PM CDT Appointment [facility] Res[facility] 1 [place] [address] Werner Swift MD #2 [place] [address] Discharge Disposition: Discharged to home or Selfcare 10/09/2024 2:30 PM CDT Office Visit [facility] - Family Medicine - [place] #2 [place] [address] Liz Capellan, DO [address] [address] documented as of this encounter Visit Diagnoses Diagnosis Anxiety and depression Dysthymic disorder documented in this encounter Additional Health Concerns Infection Onset Date Last Indicated Resolved Time COVID - 19 01/25/2021 01/25/2021 01/31/2021 8:10 AM CDT Respiratory Rule Out - RPA 01/30/2021 01/30/2021 0 02/01/2021 12:45 AM CDT COVID - 19 07/23/2021 07/23/2021 07/24/2021 6:31 AM YARD RIGGER COVID - 19 10/19/2021 10/19/2021 10/20/2021 7:45 AM CDT Respiratory Rule Out - RPA 10/19/2021 10/19/2021 0 10/20/2021 2:10 PM CDT Stenotrophomonas maltophilia Comment:Must have a follow up respiratory sample to remove isolation flag. 10/20/2021 10/20/2021 COVID - 19 04/20/2022 04/20/2022 04/30/2022 12:1 8 AM YARD RIGGER COVID - 19 07/18/2022 07/18/2022 07/28/2022 12:1 6 AM YARD RIGGER COVID - 19 08/21/2022 08/21/2022 08/22/2022 8:31 AM CDT Respiratory Rule Out - RPA 08/21/2022 08/21/2022 0 08/22/2022 3:21 PM CDT COVID - 19 04/18/2023 04/18/2023 04/28/2023 12:1 6 AM YARD RIGGER COVID - 19 07/13/2023 07/13/2023 07/23/2023 12:1 6 AM YARD RIGGER Respiratory Rule Out - RPA 03/17/2024 03/17/2024 1 3:36 PM CDT COVID - 19 04/27/2024 04/27/2024 04/27/2024 2:19 PM YARD RIGGER Assessment Noted Time PHQ-9 Depression Total Score: 1 06/10/19 20 1:03 PM YARD RIGGER documented as of this encounter Care Teams Investment Accountant Relationship Specialty Start Date End Date Keith Craft MD PCP - General Family Medicine 01/14/19 12/26/23 Liz Capellan DO [address] [address] PCP - General Family Medicine 12/27/23 Quang Locke DO Gastroenterology 01/18/16 Bri Rollins RN [place] Community Service Technician 03/07/21 05/22/23 [place] [id number] [address] 05/25/21 Bri Rollins RN [place] Nurse Community Service Technician 03/07/21 05/23/23 Werner Swift MD #2 [place] [address] Consulting Physician Pulmonary Disease 01/30/22 documented as of this encounter
--- OUTSIDE RECORDS SUMMARY | 2024-07-10 13:46 | XMS_ITS | Encounter Summary ---
Author Organization [facility] Address [address] [place] [address] Phone Care Team Providers Care Machine Rug Cleaner Name Role Phone Quang Locke Unavailable Keith Craft MD Primary Care Provider Bri Rollins RN Unavailable Unavailable Silvio Schulte MD Unavailable Bri Rollins RN Unavailable Unavailable Werner Swift MD Unavailable Liz Capellan DO Primary Care Provider [phone] Reason for Visit * Reason Comments Medication Refill Encounter Details Date Type Department Care Team (Late st Contact Info) Description 12/04/2019 Refill [facility] - [facility] Medicine [facility] [place] #2 [place] [address] Keith Craft MD #1 [place] [address] Medication Refill Social History Tobacco Use Types [...] have Coronavirus / COVID-19? No / Unsure 11/09/2019 7:52 AM CDT documented as of this encounter Miscellaneous Notes * Telephone Encounter - Elsa Benedict RN - 12/07/2019 9:23 AM CDT Requested Prescriptions Pending Prescriptions Disp Refills diazePAM (VALIUM) 10 MG Tablet [Pharmacy Med Name: DIAZEPAM 10 MG TABLET] 30 Tab 0 Sig: TAKE 1 TABLET BY MOUTH EVERY DAY Not Delegated - Psychiatry: Anxiolytics/Hypnotics Failed - 12/04/2019 9:02 AM Failed - This refill cannot be delegated Passed - Valid encounter within last 6 months Past Office Visits Recent Outpatient Visits 1 month ago Chronic prescription opiate use [facility] Keith Craft MD 4 months ago Coronary artery disease involving [place] coronary artery of [place] heart without angina pectoris [facility] Keith Elizalde MD 6 months ago COPD exacerbation (HCC) [facility] Brie Denis PAC 7 months ago Type 2 diabetes mellitus with diabetic neuropathy, with long-term current use of insulin ([facility]) [facility] Keith Elizalde MD 10 months ago Type 2 diabetes mellitus with diabetic neuropathy, with long-term current use of insulin ([facility]) [facility] Keith Elizalde MD Upcoming Appointments Future Appointments In 1 month Keith Craft [facility] documented in this encounter Plan of Treatment Upcoming Encounters Date Type Department Care Team (Late st Contact Info) Description 07/13/2024 1:30 PM COORDINATOR OF ONLINE PROGRAMS Office Visit [facility] - Family Medicine - [place] #2 [place] [address] Liz Capellan L, DO 2 [facility] [address] [place] [address] 07/20/2024 2:15 PM COORDINATOR OF ONLINE PROGRAMS [facility] [place] [facility]2 [place] [address] Ana Vivar N, CHANNEL INSTALLER, HEALTH CARE ASSISTANT [address] [address] Yasmin Restrepo MD #[address] [address] 07/31/2024 1:00 PM COORDINATOR OF ONLINE PROGRAMS [facility] [address] [place] [address] Werner Swift MD #2 [place] [address] Discharge Disposition: Discharged to home or Selfcare 08/03/2024 1:15 PM CDT [facility] [place] #2 [place] [address] Werner Swift MD #2 [place] [address] 09/02/2024 2:00 PM CDT Appointment [facility] Res[facility] 1 [place] [address] Werner Swift MD #[address] [place] [address] Discharge Disposition: Discharged to home or Selfcare 10/09/2024 2:30 PM CDT Office Visit [facility] - Family [facility] - [place] #[address] [place] [address] Liz Capellan, DO 2 [facility] [address] [address] documented as of this encounter Visit Diagnoses Diagnosis Anxiety and depression Dysthymic disorder documented in this encounter Additional Health Concerns Infection Onset Date Last Indicated Resolved Time COVID - 19 01/25/2021 01/25/2021 01/31/2021 8:10 AM CDT Respiratory Rule Out - RPA 01/30/2021 01/30/2021 0 02/01/2021 12:45 AM CDT COVID - 19 07/23/2021 07/23/2021 07/24/2021 6:31 AM COORDINATOR OF ONLINE PROGRAMS COVID - 19 10/19/2021 10/19/2021 10/20/2021 7:45 AM CDT Respiratory Rule Out - RPA 10/19/2021 10/19/2021 0 10/20/2021 2:10 PM CDT Stenotrophomonas maltophilia Comment:Must have a follow up respiratory sample to remove isolation flag. 10/20/2021 10/20/2021 COVID - 19 04/20/2022 04/20/2022 04/30/2022 12:1 8 AM COORDINATOR OF ONLINE PROGRAMS COVID - 19 07/18/2022 07/18/2022 07/28/2022 12:1 6 AM COORDINATOR OF ONLINE PROGRAMS COVID - 19 08/21/2022 08/21/2022 08/22/2022 8:31 AM CDT Respiratory Rule Out - RPA 08/21/2022 08/21/2022 0 08/22/2022 3:21 PM CDT COVID - 19 04/18/2023 04/18/2023 04/28/2023 12:1 6 AM COORDINATOR OF ONLINE PROGRAMS COVID - 19 07/13/2023 07/13/2023 07/23/2023 12:1 6 AM COORDINATOR OF ONLINE PROGRAMS Respiratory Rule Out - RPA 03/17/2024 03/17/2024 1 3:36 PM CDT COVID - 19 04/27/2024 04/27/2024 04/27/2024 2:19 PM COORDINATOR OF ONLINE PROGRAMS Assessment Noted Time PHQ-9 Depression Total Score: 1 06/10/19 20 1:03 PM COORDINATOR OF ONLINE PROGRAMS documented as of this encounter Care Teams Machine Rug Cleaner Relationship Specialty Start Date End Date Keith Craft MD PCP - General Family Medicine 01/14/19 12/26/23 Liz Capellan DO [address] [address] PCP - General Family Medicine 12/27/23 Quang Locke DO Gastroenterology 01/18/16 Bri Rollins, RN [place] Heating Plant Superintendent 03/07/21 05/22/23 [place] [address] [address] 05/25/21 Bri Rollins, RN [place] Nurse Heating Plant Superintendent 03/07/21 05/23/23 Werner Swift MD #2 [place] [address] Consulting Physician Pulmonary Disease 01/30/22 documented as of this encounter
--- OUTSIDE RECORDS SUMMARY | 2024-07-10 13:46 | XMS_ITS | Encounter Summary ---
Author Organization [facility] Address [address] [place] [address] Phone Care Team Providers Care Lapping Machine Tender Name Role Phone Quang Locke Unavailable [phone] Keith Craft MD Primary Care Provider [phone] Bri Rollins RN Unavailable Unavailable Silvio Schulte MD Unavailable [phone] Bri Rollins RN Unavailable Unavailable Werner Swift MD Unavailable Liz Capellan DO Primary Care Provider [phone] Reason for Visit * Reason Comments Medication Refill Encounter Details Date Type Department Care Team (Late st Contact Info) Description 07/11/2020 Refill [facility] [address]2 [place] [address] Keith Craft MD [address] [place] [address] Medication Refill Social History Tobacco Use Types [...] COVID-19? No / Unsure 07/02/2020 2:53 PM KALSOMINER documented as of this encounter Miscellaneous Notes * Telephone Encounter - Gloria Cornejo RN - 07/12/2020 12:05 PM CST Medication failed the protocol, provider to review and approve the medication order if appropriate. Requested Prescriptions Pending Prescriptions Disp Refills Trulicity 0.75 MG/0.5ML Solution Pen-injector [Pharmacy Med Name: TRULICITY 0.75 MG/0.5 ML PEN] 15 mL 2 Sig: INJECT 0.5ML SUBQ ONCE A WEEK ON MONDAYS Off-Protocol Failed - 07/11/2020 9:20 AM Failed - Medication not assigned to a protocol, review manually. Passed - Valid encounter within last 12 months Past Office Visits Recent Outpatient Visits 1 month ago Mixed hyperlipidemia [facility] Keith Lemus MD 2 months ago Pneumonia of right upper lobe due to infectious organism [facility] Keith Lemus MD 5 months ago Acute non-recurrent maxillary sinusitis [facility] Keith Lemus MD 8 months ago Chronic prescription opiate use [facility] Keith Lemus MD 11 months ago Coronary artery disease involving assiniboine and gros ventre tribes coronary artery of assiniboine and gros ventre tribes heart without angina pectoris [facility] Keith Lemus MD Upcoming Appointments Future Appointments In 2 weeks [facility] [place] In 2 months Keith Craft MD [facility] [place] [facility] SSD SHIP FASTENER - Recent and Past Visits Recent Visits Date Type Provider Dept 06/07/20 Office Visit Keith Craft MD [facility] 04/25/20 Office Visit Keith Craft, [facility] 02/02/20 Office Visit Keith Craft MD [facility] 11/02/19 Office Visit Keith Craft, [facility] 07/27/19 Office Visit Keith Craft MD [facility] 06/10/19 Office Visit Brie Denis PAC [facility] [place] 04/20/19 Office Visit Keith Craft, MD [facility] Showing recent visits within past 460 days with a meds authorizing provider and meeting all other requirements Future Appointments Date Type Provider Dept 10/04/20 Appointment Keith Craft MD [facility] Showing future appointments within next 90 days with a meds authorizing provider and meeting all other requirements O[facility] documented in this encounter Plan of Treatment Upcoming Encounters Date Type Department Care Team (Late st Contact Info) Description 07/13/2024 1:30 PM KALSOMINER Office Visit [facility] Family Medicine - [place] [address] [place] [address] Liz Capellan, DO [address] [address] 07/20/2024 2:15 PM KALSOMINER Office Visit [facility] Endocrinology - [place] [address]2 [place] [address] Ana Vivar N, CONFERENCE ASSISTANT, LPN INSTRUCTOR [address] [address] Yasmin Restrepo MD #[address] [phone] 07/31/2024 1:00 PM KALSOMINER [facility]ointment [facility] [address] [place] [address] Werner Swift MD [address] [place] [address] Discharge Disposition: Discharged to home or Selfcare 08/03/2024 1:15 PM CDT Office Visit [facility] - Pulmonology & Sleep Medicine [facility] #2 [place] [address] Werner Swift MD [address] [place] [address] 09/02/2024 2:00 PM CDT Appointment [facility] Respiratory Therapy 1 [place] [address] Werner Swift MD [address]2 [place] [address] Discharge Disposition: Discharged to home or Selfcare 10/09/2024 2:30 PM CDT Office Visit [facility] - Family Medicine [facility] [address]2 [place] [address] Liz Capellan, DO [address] [address] documented as of this encounter Visit Diagnoses Diagnosis Type 2 diabetes mellitus with diabetic neuropathy, with long-term current use of insulin (HCC) documented in this encounter Additional Health Concerns Infection Onset Date Last Indicated Resolved Time COVID - 19 01/25/2021 01/25/202101/31/2021 8:10 AM CDT Respiratory Rule Out - RPA 01/30/2021 01/30/2021 0 02/01/2021 12:45 AM CDT COVID - 19 07/23/2021 07/23/2021 07/24/2021 6:31 AM KALSOMINER COVID - 19 10/19/2021 10/19/2021 10/20/2021 7:45 AM CDT Respiratory Rule Out - RPA 10/19/2021 10/19/2021 0 10/20/2021 2:10 PM CDT Stenotrophomonas maltophilia Comment:Must have a follow up respiratory sample to remove isolation flag. 10/20/2021 10/20/2021 COVID - 19 04/20/2022 04/20/2022 04/30/2022 12:1 8 AM KALSOMINER COVID - 19 07/18/2022 07/18/2022 07/28/2022 12:1 6 AM KALSOMINER COVID - 19 08/21/2022 08/21/2022 08/22/2022 8:31 AM CDT Respiratory Rule Out - RPA 08/21/2022 08/21/2022 0 08/22/2022 3:21 PM CDT COVID - 19 04/18/2023 04/18/2023 04/28/2023 12:1 6 AM KALSOMINER COVID - 19 07/13/2023 07/13/2023 07/23/2023 12:1 6 AM KALSOMINER Respiratory Rule Out - RPA 03/17/2024 03/17/2024 1 3:36 PM CDT COVID - 19 04/27/2024 04/27/2024 04/27/2024 2:19 PM KALSOMINER Assessment Noted Time PHQ-9 Depression Total Score: 2 06/07/19 21 2:34 PM KALSOMINER documented as of this encounter Care Teams Lapping Machine Tender Relationship Specialty Start Date End Date Keith Craft MD PCP - General Family Medicine 01/14/19 12/26/23 Liz Capellan DO [address] [address] PCP - General Family Medicine 12/27/23 Quang Locke DO Gastroenterology 01/18/16 Bri Rollins RN [place] Health Care Administrator 03/07/21 05/22/23 [place] [id number] [address] 05/25/21 Bri Rollins RN [place] Nurse Health Care Administrator 03/07/21 05/23/23 Werner Swift MD [address] [place] [address] Consulting Physician Pulmonary Disease 01/30/22 documented as of this encounter
--- NOTE | 2024-07-10 14:15 | ED.URI ---
HPI - URI/Sore Throat General Chief Complaint: Upper Respiratory Infection Stated Complaint: respiratory issues Time Seen by Provider: 07/10/24 14:16 Source: patient Mode of arrival: ambulatory Limitations: no limitations History of Present Illness HPI Narrative: 73 y/o female with COPD presented for c/o cough, nasal drainage, increased wheezing and sob from baseline for one week. Denies any n/v/d/f/c. Using inhalers as prescribed. Scheduled with pcp in 3 days. Says home O2 levels have been 96%, uses O2 at times. Related Data Home Medications ?Medication ?Instructions ?Recorded ?Confirmed ?Last Taken ?Type albuterol sulfate 2.5 mg/3 mL 2.5 mg inhalation DIRECTED 12/22/19 04/24/24 Unknown History (0.083 %) solution for nebulization albuterol sulfate 90 mcg/actuation 2 inh inhalation DIRECTED 12/22/19 04/24/24 Unknown History aerosol inhaler (Ventolin HFA) amitriptyline 25 mg tablet 25 mg PO DAILY 12/22/19 04/24/24 Unknown History aspirin 81 mg tablet,delayed 81 mg PO DAILY 12/22/19 04/24/24 Unknown History release carvedilol 3.125 mg tablet 3.125 mg PO DAILY 12/22/19 04/24/24 Unknown History cyanocobalamin (vitamin B-12) 1,000 mcg PO DAILY 12/22/19 04/24/24 Unknown History 1,000 mcg tablet,extended release dapagliflozin propaned 5 1 tablet PO BID 12/22/19 04/24/24 Unknown History mg-metformin ER 1,000 mg tablet, ext rel 24hr (Xigduo XR) dulaglutide 0.75 mg/0.5 mL 0.5 mg subcut WEEKLY 12/22/19 04/24/24 Unknown History subcutaneous pen injector (Trulicity) duloxetine 60 mg capsule,delayed 60 mg PO DAILY 12/22/19 04/24/24 Unknown History release ergocalciferol (vitamin D2) 1,250 1,250 mcg PO DAILY 12/22/19 04/24/24 Unknown History mcg (50,000 unit) capsule ivabradine 5 mg tablet (Corlanor) 5 mg PO DAILY 12/22/19 04/24/24 Unknown History levothyroxine 25 mcg tablet 25 mcg PO DAILY 12/22/19 04/24/24 Unknown History magnesium oxide 400 mg (241.3 mg 400 mg PO DAILY 12/22/19 04/24/24 Unknown History magnesium) tablet naloxegol 25 mg tablet (Movantik) 25 mg PO DAILY 12/22/19 04/24/24 Unknown History rosuvastatin 5 mg tablet 5 mg PO DAILY 12/22/19 04/24/24 Unknown History sacubitril 24 mg-valsartan 26 mg 1 tablet PO DAILY 12/22/19 04/24/24 Unknown History tablet (Entresto) sitagliptin phosphate 100 mg 100 mg PO DAILY 12/22/19 04/24/24 Unknown History tablet (Januvia) sumatriptan succinate 100 mg tablet 100 mg PO DAILY 12/22/19 04/24/24 Unknown History theophylline 300 mg 300 mg PO DAILY 12/22/19 04/24/24 Unknown History tablet,extended release,12 hr valacyclovir 500 mg tablet 500 mg PO DIRECTED 12/22/19 04/24/24 Unknown History finerenone 20 mg tablet (Kerendia) 20 mg PO DAILY 12/15/23 04/24/24 Unknown History fluticasone fur. 100 mcg-umeclid See Rx Instructions .Route .COMPLEX 12/15/23 04/24/24 Unknown History 62.5 mcg-vilant 25 mcg inhalat.powder (Trelegy Ellipta) icosapent ethyl 1 gram capsule See Rx Instructions .Route .COMPLEX 12/15/23 04/24/24 Unknown History (Vascepa) ipratropium bromide 0.02 % See Rx Instructions .Route .COMPLEX 12/15/23 04/24/24 Unknown History solution for inhalation linagliptin 5 mg tablet (Tradjenta) 5 mg PO DAILY 12/15/23 04/24/24 Unknown History escitalopram oxalate 20 mg tablet 20 mg PO DAILY 04/24/24 04/24/24 Unknown History gabapentin 800 mg tablet 800 mg PO TID 04/24/24 04/24/24 Unknown History levothyroxine 50 mcg tablet 50 mcg PO DAILY 04/24/24 04/24/24 Unknown History theophylline 400 mg 400 mg PO DAILY 04/24/24 04/24/24 Unknown History tablet,extended release 24 hr diazepam 5 mg tablet mg 07/10/24 Unknown History empagliflozin 10 mg tablet mg 07/10/24 Unknown History (Jardiance) ferrous sulfate 325 mg (65 mg mg 07/10/24 Unknown History iron) tablet (FeroSul) lansoprazole 30 mg capsule,delayed mg 07/10/24 Unknown History release oxycodone-acetaminophen 10 mg-325 tablet 07/10/24 Unknown History mg tablet prednisone 10 mg tablet mg 07/10/24 Unknown History roflumilast 500 mcg tablet mcg 07/10/24 Unknown History Allergies Allergy/AdvReac Type Severity Reaction Status Date / Time Penicillins Allergy Swelling Verified 07/10/24 13:53 of Lip/Tongue/Throat Review of Systems Review of Systems: per HPI All systems reviewed & are unremarkable except as noted in HPI and below PMFSH Past Medical History Medical History Diabetes Hyperlipidemia Hypertension Pacemaker COPD (chronic obstructive pulmonary disease) CHF (congestive heart failure) Surgical History Surgical History History of hysterectomy History of foot surgery History of surgery on wrist History of back surgery Family History Family History Mother Family history non-contributory Other Heart disease Hypertension Social History Social History Smoking status: Former smoker Alcohol intake: current Substance use: never Living arrangements: alone Gender identity (if verbalized by the patient): Female Sexual Orientation (if Verbalized by the Patient): Straight or Heterosexual Spiritual care concerns: No Comments At time of signature, I have reviewed and agree with nursing past medical, surgical, social and family history unless otherwise noted. Please see nursing chart for further information. There is no relevant family history pertinent to the presenting complaint Exam Narrative: GENERAL: chronically ill-appearing, in no acute distress. EYES: EOMI. No redness or drainage. Conjunctivae normal. ENT: Mucous membranes pink and moist. CHEST: No respiratory distress. Audible moist Wheezing to all renae. HEART: Regular rate and rhythm. No murmur appreciated. EXTREMITIES: Normal range of motion. No edema. SKIN: Warm, dry, no rash. Capillary refill normal. Normal skin turgor. NEURO: Alert and oriented x3. Gait steady. PSYCH: Normal affect. Course Course Emergency Course: Patient is aware of diagnosis, understands and agrees to treatment plan. Anticipatory guidance given. Patient agrees to follow-up as directed and is aware of reasons to seek care at the emergency department. Portions of this record may have been created with voice recognition software Level of Care: Express Care Visit Vital Signs Vital signs: Vital Signs Temperature 97.1 F L 07/10/24 13:42 Pulse Rate 80 07/10/24 13:42 Respiratory Rate 20 07/10/24 13:42 Blood Pressure 119/71 07/10/24 13:42 Pulse Oximetry 96 07/10/24 13:42 Oxygen Delivery Room Air 07/10/24 13:42 Temperature 97.1 F L 07/10/24 13:42 Pulse Rate 80 07/10/24 13:42 Respiratory Rate 20 07/10/24 13:42 Blood Pressure 119/71 07/10/24 13:42 Pulse Oximetry 96 07/10/24 13:42 Oxygen Delivery Room Air 07/10/24 13:42 MDM - URI/Sore Throat MDM Narrative Medical decision making narrative: Discussed physical exam findings,reviewed RX. Advised supportive measures and signs/symptoms to go to the ER. Pt is appropriate for outpt treatment and f/u. Differential Diagnosis Differential diagnosis: Likely upper respiratory infection, sinusitis, viral infection, bronchitis and influenza Discharge Plan Discharge Clinical Impression: Bronchitis Patient Disposition: Home, Self-Care Condition: Stable Instructions: Antibiotic Form, Acute Bronchitis (ED) Additional Instructions: Acute bronchitis can be contagious because it is usually caused by infection with a virus or bacteria. It is usually for a few days but you can be contagious for up to one week. Avoid crowds until you do not have a fever and symptoms are improved Take medication as directed Recommendations: over the counter Cough syrup may cause drowsiness; avoid driving or take it at night time. Tylenol 1000mg every 8 hours as needed for pain Flonase spray and Zyrtec (or Claritin/Rebecca) if you have nasal congestion Symptomatic treatment includes: rest, fluids, and increase humidity of the air at home. Continue to monitor your oxygen level at home and use your inhalers Follow up with your primary care provider as scheduled next week Go to the ER for worsening symptoms or concerns Patient Language: New Zealander Prescriptions: New levofloxacin 750 mg tablet 750 mg PO DAILY Qty: 7 0RF methylprednisolone [Medrol (Shakeel)] 4 mg tablets,dose pack See Rx Instructions .ROUTE .COMPLEX Qty: 21 0RF Rx Instructions: orally per package directions No Action ipratropium bromide 0.02 % solution See Rx Instructions .ROUTE .COMPLEX Rx Instructions: as prescribed Tradjenta 5 mg tablet 5 mg PO DAILY icosapent ethyl [Vascepa] 1 gram capsule See Rx Instructions .ROUTE .COMPLEX Rx Instructions: as prescribed Trelegy Ellipta 100-62.5-25 mcg blister with device See Rx Instructions .ROUTE .COMPLEX Rx Instructions: as prescribed Kerendia 20 mg tablet 20 mg PO DAILY cyanocobalamin (vitamin B-12) 1,000 mcg tablet extended release 1,000 mcg PO DAILY albuterol sulfate 2.5 mg /3 mL (0.083 %) solution for nebulization 2.5 mg inhalation DIRECTED Rx Instructions: as prescribed sumatriptan succinate 100 mg tablet 100 mg PO DAILY valacyclovir 500 mg tablet 500 mg PO DIRECTED aspirin 81 mg tablet,delayed release (DR/EC) 81 mg PO DAILY carvedilol 3.125 mg tablet 3.125 mg PO DAILY theophylline 300 mg tablet extended release 12 hr 300 mg PO DAILY levothyroxine 25 mcg tablet 25 mcg PO DAILY amitriptyline 25 mg tablet 25 mg PO DAILY magnesium oxide 400 mg (241.3 mg magnesium) tablet 400 mg PO DAILY ergocalciferol (vitamin D2) 1,250 mcg (50,000 unit) capsule 1,250 mcg PO DAILY albuterol sulfate [Ventolin HFA] 90 mcg/actuation HFA aerosol inhaler 2 inh INHALATION DIRECTED rosuvastatin 5 mg tablet 5 mg PO DAILY duloxetine 60 mg capsule,delayed release(DR/EC) 60 mg PO DAILY Januvia 100 mg tablet 100 mg PO DAILY ivabradine [Corlanor] 5 mg tablet 5 mg PO DAILY Trulicity 0.75 mg/0.5 mL pen injector 0.5 mg SUBCUT WEEKLY dapaglifloz propaned-metformin [Xigduo XR] 5-1,000 mg tablet, IR - ER, biphasic 24hr 1 tablet PO BID Movantik 25 mg tablet 25 mg PO DAILY Entresto 24-26 mg tablet 1 tablet PO DAILY gabapentin 800 mg Tablet 800 mg PO TID escitalopram oxalate 20 mg Tablet 20 mg PO DAILY levothyroxine 50 mcg Tablet 50 mcg PO DAILY theophylline 400 mg Tablet Extended Release 24 Hr 400 mg PO DAILY prednisone 10 mg tablet oxycodone-acetaminophen 10-325 mg tablet ferrous sulfate [FeroSul] 325 mg (65 mg iron) tablet lansoprazole 30 mg capsule,delayed release(DR/EC) diazepam 5 mg tablet roflumilast 500 mcg tablet Jardiance 10 mg tablet Follow-up/Referrals: PHYSICIAN NOT ON STAFF,NONSTAFF [Primary Care Provider] - Time of Disposition: 14:23
== END 2024-07-10 14:29 | disposition home or self-care (01) ==
PROVIDERS: Emergency Provider Nurse Practitioner Family
DX: J40 Bronchitis, not specified as acute or chronic (principal); Z87.891 Personal history of nicotine dependence; E11.9 Type 2 diabetes mellitus without complications; I11.0 Hypertensive heart disease with heart failure; I50.9 Heart failure, unspecified; E78.5 Hyperlipidemia, unspecified; J44.9 Chronic obstructive pulmonary disease, unspecified; Z95.0 Presence of cardiac pacemaker; Z79.82 Long term (current) use of aspirin
CPT/HCPCS: 99213; G0463

== ENCOUNTER 2024-08-16 19:26 | Emergency (ER) | payer OTHER, SELFPAY ==
--- NOTE | ~2024-08-16 | XR_ITS ---
XR chest 2V DATE: 08/16/2024 19:58 INDICATION: Cough TECHNIQUE: 2 views COMPARISON: 04/24/2024 2 view chest FINDINGS: Normal heart size. Left-sided transvenous pacemaker device with leads overlying right atriu m and right ventricle. Bilateral hyperinflation. No pulmonary infiltrate or consolidation, pleural effusion or pulmonary vas cular congestion or pneumothorax is detected. Aortic arch and great vessel calcification. Osteopenia. Lumbar levoscoliosis. IMPRESSION: Bilateral hyperinflation; no active cardiac pulmonary disease Reviewed, dictated and finalized at location A.
--- OUTSIDE RECORDS SUMMARY | 2024-08-16 19:29 | XMS_ITS | Encounter Summary ---
Author Organization [facility] Address [address] [place] [address] Phone Care Team Providers Care Tilting Head Band Sawyer Name Role Phone Quang Locke DO Unavailable [phone] Keith Craft MD Primary Care Provider [phone] Bri Rollins RN Unavailable Unavailable Silvio Schulte MD Unavailable [phone] Bri Rollins RN Unavailable Unavailable Werner Swift MD Unavailable Liz Capellan DO Primary Care Provider Yasmin Restrepo MD Unavailable Reason for Visit * Reason Comments Medication Refill Encounter Details Date Type Department Care Team (Late st Contact Info) Description 11/16/2021 Refill [facility]2 [place] [address] Keith Craft MD #1 [place] [address] Medication Refill Social History Tobacco Use Types [...] Care Team (Late st Contact Info) Description 08/27/2024 1:15 PM CDT Office Visit [facility] - Endocrinology [facility]2 [place] [address] Yasmin Restrepo MD #[address] [phone] 09/02/2024 2:00 PM CDT [facility]ointment [facility] Res[facility] Therapy 1 [place] [address] Werner Swift MD #2 [place] [address] Discharge Disposition: Discharged to home or Selfcare 10/08/2024 1:40 PM CDT Office Visit [facility] - Family Medicine [facility] #2 [place] [address] Liz Capellan, DO [address] [address] 11/16/2024 1:00 PM CDT Office Visit [facility] - Pulmonology & Sleep Medicine - [place] [address] [place] [phone] Werner Swift MD [address] [place] [address] documented as of this encounter Goals Goal [...] Zones/Action plan education. I will notify my Trip Follower if my symptoms fall in the y [...] 19 04/20/2022 04/20/2022 04/30/2022 12:1 8 AM [employer] CONSULTANT COVID - 19 07/18/2022 07/18/2022 07/28/2022 12:1 6 AM [employer] CONSULTANT COVID - 19 08/21/2022 08/21/2022 08/22/2022 8:31 AM CDT Respiratory Rule Out - RPA 08/21/2022 08/21/2022 0 08/22/2022 3:21 PM CDT COVID - 19 04/18/2023 04/18/2023 04/28/2023 12:1 6 AM [employer] CONSULTANT COVID - 19 07/13/2023 07/13/2023 07/23/2023 12:1 6 AM [employer] CONSULTANT Respiratory Rule Out - RPA 03/17/2024 03/17/2024 1 3:36 PM CDT COVID - 19 04/27/2024 04/27/2024 04/27/2024 2:19 PM [employer] CONS[employer]ANT Respiratory Rule-Out 07/24/2024 07/24/2024 025 2:29 PM [employer] CONSULTANT COVID - 19 07/24/2024 07/24/2024 07/24/2024 2:29 PM [employer] CONSULTANT Assessment Noted Time PHQ-9 Depression Total Score: 1 03/07/20 21 10:29 AM CDT documented as of this encounter Care Teams Tilting Head Band Sawyer Relationship Specialty Start Date End Date Keith Craft MD PCP - General Family Medicine 01/14/19 12/26/23 Liz Capellan DO [address] [address] PCP - General Family Medicine 12/27/23 Quang Locke DO Gastroenterology 01/18/16 Bri Rollins RN [place] Trip Follower 03/07/21 05/22/23 [place] [id number] [address] 05/25/21 Bri Rollins, RN [place] Nurse Trip Follower 03/07/21 05/23/23 Werner Swift MD [address] [place] [phone] Consulting Physician Pulmonary Disease 01/30/22 Yasmin Restrepo MD #[address] [address] Consulting Physician Endocrinology 07/20/24 documented as of this encounter
--- OUTSIDE RECORDS SUMMARY | 2024-08-16 19:29 | XMS_ITS | Encounter Summary ---
Author Organization [facility] Address [address] [place] [address] Phone Care Team Providers Care Corduroy Cutter Operator Name Role Phone Quang Locke DO Unavailable [phone] Keith Craft MD Primary Care Provider [phone] Bri Rollins RN Unavailable Unavailable Silvio Schulte MD Unavailable [phone] Bri Rollins RN Unavailable Unavailable Werner Swift MD Unavailable Liz Capellan DO Primary Care Provider [phone] Yasmin Restrepo MD Unavailable Reason for Visit * Reason Comments Medication Refill Encounter Details Date Type Department Care Team (Late st Contact Info) Description 09/29/2020 [facility]ill [facility] #2 [place] [address] Keith Craft MD #1 [place] [address] Medication Refill Social History Tobacco Use Types [...] Outpatient Visits 3 months ago Mixed hyperlipidemia [facility] Keith Lemus MD 5 months ago Pneumonia of right upper lobe due to infectious organism [facility] Keith Lemus MD 8 months ago Acute non-recurrent maxillary sinusitis [facility] Keith Lemus MD 11 months ago Chronic prescription opiate use [facility] - Keith Jenkins MD 1 year ago 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 [facility] Keith Lemus MD Upcoming Appointments Future Appointments In 4 days Keith Craft MD [facility] YULIA Mckeon SUPERVISOR MATTRESS AND BOXSPRINGS - Recent and Past Visits Recent Visits Date Type Provider Dept 06/07/20 Office Visit Keith Craft MD [facility] [place] 04/25/20 Office Visit [facility] MD [facility] [...] Visit [facility]ology - [place] #2 [place] [address] Yasmin Restrepo MD #[address] [address] 09/02/2024 2:00 PM CDT [facility] 1 [place] [address] Werner Swift MD #2 [place] [address] Discharge Disposition: Discharged to home or Selfcare 10/08/2024 1:40 PM CDT Office Visit [facility] - [facility] #2 [place] [address] Liz Capellan, DO [address] [address] 11/16/2024 1:00 PM CDT Office Visit [facility] - Pulmonology & Sleep Medicine [facility] #2 [place] [address] Werner Swift MD [address] [place] [address] documented as of this encounter Visit Diagnoses Diagnosis Anxiety and depression Dysthymic disorder documented in this encounter Additional Health Concerns Infection Onset Date Last Indicated Resolved Time COVID - 19 01/25/2021 01/25/2021 01/31/2021 8:10 AM CDT Respiratory Rule Out - RPA 01/30/2021 01/30/2021 0 02/01/2021 12:45 AM CDT COVID - 19 07/23/2021 07/23/2021 07/24/2021 6:31 AM EGGS INSPECTOR COVID - 19 10/19/2021 10/19/2021 10/20/2021 7:45 AM CDT Respiratory Rule Out - RPA 10/19/2021 10/19/2021 0 10/20/2021 2:10 PM CDT Stenotrophomonas maltophilia Comment:Must have a follow up respiratory sample to remove isolation flag. 10/20/2021 10/20/2021 COVID - 19 04/20/2022 04/20/2022 04/30/2022 12:1 8 AM EGGS INSPECTOR COVID - 19 07/18/2022 07/18/2022 07/28/2022 12:1 6 AM EGGS INSPECTOR COVID - 19 08/21/2022 08/21/2022 08/22/2022 8:31 AM CDT Respiratory Rule Out - RPA 08/21/2022 08/21/2022 0 08/22/2022 3:21 PM CDT COVID - 19 04/18/2023 04/18/2023 04/28/2023 12:1 6 AM EGGS INSPECTOR COVID - 19 07/13/2023 07/13/2023 07/23/2023 12:1 6 AM EGGS INSPECTOR Respiratory Rule Out - RPA 03/17/2024 03/17/2024 1 3:36 PM CDT COVID - 19 04/27/2024 04/27/2024 04/27/2024 2:19 PM EGGS INSPECTOR Respiratory Rule-Out 07/24/2024 07/24/2024 025 2:29 PM EGGS INSPECTOR COVID - 19 07/24/2024 07/24/2024 07/24/2024 2:29 PM EGGS INSPECTOR Assessment Noted Time PHQ-9 Depression Total Score: 2 06/07/19 21 2:34 PM EGGS INSPECTOR documented as of this encounter Care Teams Corduroy Cutter Operator Relationship Specialty Start Date End Date Keith Craft MD PCP - General Family Medicine 01/14/19 12/26/23 Liz Capellan DO [address] [address] PCP - General Family Medicine 12/27/23 Quang Locke DO Gastroenterology 01/18/16 Bri Rollins, RN [place] Outsole Beveler 03/07/21 05/22/23 [place] [address] [address] 05/25/21 Bri Rollins, RN [place] Nurse Outsole Beveler 03/07/21 05/23/23 Werner Swift MD #2 [place] [address] Consulting Physician Pulmonary Disease 01/30/22 Yasmin Restrepo MD #[address] [address] Consulting Physician Endocrinology 07/20/24 documented as of this encounter
--- OUTSIDE RECORDS SUMMARY | 2024-08-16 19:29 | XMS_ITS | Encounter Summary ---
Author Organization [facility] Address [address] [place] [address] Phone Care Team Providers Care Press Assistant And Feeder Name Role Phone Quang Locke DO Unavailable [phone] Keith Craft MD Primary Care Provider [phone] Bri Rollins RN Unavailable Unavailable Silvio Schulte MD Unavailable [phone] Bri Rollins RN Unavailable Unavailable Werner Swift MD Unavailable Liz Capellan DO Primary Care Provider [phone] Yasmin Restrepo MD Unavailable Reason for Visit * Reason Comments Medication Refill Encounter Details Date Type Department Care Team (Late st Contact Info) Description 08/30/2022 Refill [facility] #2 [place] [address] Keith Craft MD #1 [place] [address] Medication Refill Social History Tobacco Use Types [...] Refills Insulin Pen Needle (UltiCare Mini Pen Crozier) 31G X 6 MM Misc [Pharmacy Med Name: ULTICARE MINI PEN NEEDLES/31G X 6MM [id number] MISC] 300 Each 1 Sig: USE WITH INSULIN THREE (3) TIMES DAILY Diabetic Supplies Protocol Passed - 08/30/2022 9:45 AM Passed - Visit with relevant provider in past 6 months Recent Visits Date Type Provider Dept 07/18/22 Office Visit Kerri Kauffman, ACID ETCH OPERATOR, HULL LINE CREW MEMBER [facility] 06/07/22 Office Visit Keith Craft MD [facility] [place] 03/02/22 Procedure Visit [facility] 03/02/22 Office Visit Keith Craft MD [facility] Showing recent visits within past 182 days and meeting all other requirements Future Appointments Date Type Provider Dept 09/10/22 Appointment Keith Craft MD [facility] Showing future appointments within next [...] Dept 07/18/22 Office Visit Kerri Kauffman APRN, HULL LINE CREW MEMBER [facility] [place] 06/07/22 Office Visit Keith Craft MD [facility] 03/02/22 Procedure Visit [facility] 03/02/22 Office Visit Keith Craft MD [facility] 11/03/21 Office Visit Keith Craft MD [facility] 10/19/21 [facility] 10/05/21 Office Visit Keith Craft MD [facility] 09/08/21 Office [facility] Show[facility] recent visits within past 365 days and meeting all other requirements Future Appointments Date Type Provider Dept 09/10/22 Appointment Keith Craft MD [facility] Showing future appointments within next [...] Dept 07/18/22 Office Visit Kerri Kauffman APRN, HULL LINE CREW MEMBER [facility] [place] 06/07/22 Office Visit Keith Craft MD [facility] 03/02/22 Procedure Visit [facility] DIAB[facility] RET[facility]AL IMAG[facility] 03/02/22 Office Visit Keith Craft MD [facility] 11/03/21 Office Visit Keith rCaft MD [facility] 10/19/21 Office Visit Keith Craft MD [facility] 10/05/21 Office Visit Keith Craft MD [facility] 09/08/21 Office Visit Brie Denis PAC [facility] Showing recent visits within past 365 days and meeting all other requirements Future Appointments Date Type Provider Dept 09/10/22 Appointment Keith Craft MD [facility] Showing future appointments within next 90 days and meeting all other requirements documented in this encounter Plan of Treatment Upcoming Encounters Date Type Department Care Team (Late st Contact Info) Description 08/27/2024 1:15 PM CDT Office Visit [facility] Medical [facility] - Endocrinology [facility] #2 [place] [address] Yasmin Restrepo MD #[address] [address] 09/02/2024 2:00 PM CDT [facility] 1 [place] [address] Werner Swift MD #2 [place] [address] Discharge Disposition: Discharged to home or Selfcare 10/08/2024 1:40 PM CDT Office Visit [facility] - Family Medicine [facility] #2 [place] [address] Liz Capellan, DO [address] [address] 11/16/2024 1:00 PM CDT Office Visit [facility] - Pulmonology & Sleep Medicine [facility] [address] [place] [address] Werner Swift MD #[address] [place] [address] documented as of this encounter Goals Goal [...] Zones/Action plan education. I will notify my Refrigerating Engineer Head if my symptoms fall in the y ellow zone . I will consider receiving an influenza and pneumonia vaccination, if applicable. -I will call the office if I experience any symptoms listed above to discuss at home management options. documented as of this encounter Visit Diagnoses Diagnosis Type 2 diabetes mellitus with diabetic neuropathy, with long-term current use of insulin ([facility]) Chronic low back pain, unspecified back pain laterality, unspecified whether sciatica present Anxiety and depression Dysthymic disorder documented in this encounter Additional Health Concerns Infection Onset Date Last Indicated Resolved Time Stenotrophomonas maltophilia Comment:Must have a follow up respiratory sample to remove isolation flag. 10/20/2021 10/20/2021 COVID - 19 04/18/2023 04/18/2023 04/28/2023 12:1 6 AM TELECINE OPERATOR COVID - 19 07/13/2023 07/13/2023 07/23/2023 12:1 6 AM TELECINE OPERATOR Respiratory Rule Out - RPA 03/17/2024 03/17/2024 1 3:36 PM CDT COVID - 19 04/27/2024 04/27/2024 04/27/2024 2:19 PM TELECINE OPERATOR Respiratory Rule-Out 07/24/2024 07/24/2024 025 2:29 PM TELECINE OPERATOR COVID - 19 07/24/2024 07/24/2024 07/24/2024 2:29 PM TELECINE OPERATOR Assessment Noted Time PHQ-9 Depression Total Score: 1 03/07/20 21 10:29 AM CDT documented as of this encounter Care Teams Press Assistant And Feeder Relationship Specialty Start Date End Date Keith Craft MD PCP - General Family Medicine 01/14/19 12/26/23 Liz Capellan DO [address] [id number] PCP - General Family Medicine 12/27/23 Quang Locke DO Gastroenterology 01/18/16 Bri Rollins RN [place] Refrigerating Engineer Head 03/07/21 05/22/23 [place] [address] [address] 05/25/21 Bri Rollins RN [place] Nurse Refrigerating Engineer Head 03/07/21 05/23/23 Werner Swift MD #2 [place] [address] Consulting Physician Pulmonary Disease 01/30/22 Yasmin Restrepo MD #[address] [address] Consulting Physician Endocrinology 07/20/24 documented as of this encounter
--- OUTSIDE RECORDS SUMMARY | 2024-08-16 19:29 | XMS_ITS | Encounter Summary ---
Author Organization [facility] Address [address] [place] [address] Phone Care Team Providers Care Director Education Name Role Phone Quang Locke DO Unavailable [phone] Keith Craft MD Primary Care Provider [phone] Bri Rollins RN Unavailable Unavailable Silvio Schulte MD Unavailable [phone] Bri Rollins RN Unavailable Unavailable Werner Swift MD Unavailable Liz Capellan DO Primary Care Provider [phone] Yasmin Restrepo MD Unavailable Reason for Visit * Reason Comments Medication Refill Encounter Details Date Type Department Care Team (Late st Contact Info) Description 07/31/2022 Refill [facility] #2 [place] [address] Keith Craft MD #1 [place] [address] Medication Refill Social History Tobacco Use Types [...] Coronavirus/COVID-19? No / Unsure 07/18/2022 12:40 PM LAY UPS ASSEMBLER documented as of this encounter Miscellaneous Notes * Telephone Encounter - Gloria Cornejo RN - 07/31/2022 3:06 PM CST PDMP [...] Provider Dept 07/18/22 Office Visit Kerri Kauffman, ACCOUNT UNDERWRITER, SOLAR PROCESS ENGINEER [facility]22 Office Visit Keith Craft MD [facility] 03/02/22 Procedure Visit [facility] 03/02/22 Office Visit Keith Craft MD [facility] 11/03/21 [facility] 10/05/21 Office Visit Keith Craft MD [facility] 09/08/21 Office Visit Brie Denis PAC [facility] [place] 08/14/21 Office Visit Keith Craft MD [facility] 07/31/21 Office Visit Keith [facility] MD [facility] Showing recent visits within past 365 days and meeting all other requirements Future Appointments Date Type Provider Dept 09/10/22 Appointment Keith Craft MD [facility] Showing future appointments within next 90 days and meeting all other requirements UPS ASSEMBLER documented in this encounter Plan of Treatment Upcoming Encounters Date Type Department Care Team (Late st Contact Info) Description 08/27/2024 1:15 PM CDT Office Visit [facility] - Endocrinology - [place] #2 [place] [address] Yasmin Restrepo MD #[address] [address] 09/02/2024 2:00 PM CDT Appointment [facility] Respiratory Therapy 1 [place] [address] Werner Swift MD #2 [place] [address] Discharge Disposition: Discharged to home or Selfcare 10/08/2024 1:40 PM CDT Office Visit [facility] Family Medicine - [place] #2 [place] [address] Liz Capellan, DO [address] [address] 11/16/2024 1:00 PM CDT Office Visit [facility] - Pulmonology & Sleep Medicine [facility] #[address] [place] [address] Werner Swift MD [address] [place] [address] documented as of this encounter Goals Goal [...] Zones/Action plan education. I will notify my Quality Control Representative if my symptoms fall in the y [...] 19 04/18/2023 04/18/2023 04/28/2023 12:1 6 AM LAY UPS ASSEMBLER COVID - 19 07/13/2023 07/13/2023 07/23/2023 12:1 6 AM LAY UPS ASSEMBLER Respiratory Rule Out - RPA 03/17/2024 03/17/2024 1 3:36 PM CDT COVID - 19 04/27/2024 04/27/2024 04/27/2024 2:19 PM LAY UPS ASSEMBLER Respiratory Rule-Out 07/24/2024 07/24/2024 025 2:29 PM LAY UPS ASSEMBLER COVID - 19 07/24/2024 07/24/2024 07/24/2024 2:29 PM LAY UPS ASSEMBLER Assessment Noted Time PHQ-9 Depression Total Score: 1 03/07/20 10:29 AM CDT documented as of this encounter Care Teams Director Education Relationship Specialty Start Date End Date Keith Craft MD PCP - General Family Medicine 01/14/19 12/26/23 Liz Capellan DO [address] [id number] PCP - General Family Medicine 12/27/23 Quang Locke DO Gastroenterology 01/18/16 Bri oRllins, KATEY [place] Quality Control Representative 03/07/21 05/22/23 [place] [address] [address] 05/25/21 Bri Rollins RN [place] Nurse Quality Control Representative 03/07/21 05/23/23 Werner Swift MD #2 [place] [address] Consulting Physician Pulmonary Disease 01/30/22 Yasmin Restrepo MD #[address] [address] Consulting Physician Endocrinology 07/20/24 documented as of this encounter
--- OUTSIDE RECORDS SUMMARY | 2024-08-16 19:29 | XMS_ITS | Encounter Summary ---
Author Organization [facility] Address [address] [place] [address] Phone Care Team Providers Care Map Maker Name Role Phone Quang Locke DO Unavailable [phone] Keith Craft MD Primary Care Provider [phone] Silvio Schulte MD Unavailable [phone] Werner Swift MD Unavailable Liz Capellan DO Primary Care Provider [phone] Yasmin Restrepo MD Unavailable Reason for Visit * Reason Comments Medication Refill Encounter Details Date Type Department Care Team (Late st Contact Info) Description 08/07/2023 Refill [facility] #2 [place] [address] Keith Craft MD #1 [place] [address] Medication Refill Social History Tobacco Use Types Packs/Day Years Used Date Smoking Tobacco: Former Cigarettes 2 50 1 - 03/16/2018 Smokeless Tobacco: Never Comments:Still uses nictoine patches and gum Alcohol Use Standard Drinks/Week Comments No 0 (1 standard drink = 0.6 oz pur e alcohol) [facility] Utilities Answer Date Recorded In the [...] often do you attend chur ch or uatsdin services? Never 07/13/2023 Do you belong to any clubs o r organizations such as druze groups, unions, fraternal or athletic groups, or [...] - Questions 1-9 0 /0 08/2021 [facility] [place] of Occupat ional Health - Occupational Stress [...] [place] 09/10/22 Office Visit [facility] [place] Showing recent visits within past 365 days and meeting all other requirements Future Appointments Date Type Provider Dept 08/15/23 Appointment Keith Craft MD [facility] Showing future appointments within next 90 days and meeting all other requirements documented in this encounter Plan of Treatment Upcoming Encounters Date Type Department Care Team (Late st Contact Info) Description 08/27/2024 1:15 PM CDT Office Visit [facility] Medical Group - Endocrinology - [place] #2 [place] [address] Yasmin Restrepo MD #[address] [address] 09/02/2024 2:00 PM CDT [facility] 1 [place] [address] Werner Swift MD #2 [place] [address] Discharge Disposition: Discharged to home or Selfcare 10/08/2024 1:40 PM CDT Office Visit [facility] Medical Group - Family Medicine [facility] #2 [place] [address] Liz Capellan, DO [address] [address] 11/16/2024 1:00 PM CDT [facility] - Pulmonology & Sleep Medicine - [place] #2 [place] [address] Werner Swift MD #[address] [place] [address] documented as of this encounter Goals Goal [...] Zones/Action plan education. I will notify my Rapid Extractor Operator if my symptoms fall in the [...] - 19 04/27/2024 04/27/2024 04/27/2024 2:19 PM DIESEL MAINTENANCE TECHNICIAN Respiratory Rule-Out 07/24/2024 07/24/2024 025 2:29 PM DIESEL MAINTENANCE TECHNICIAN COVID - 19 07/24/2024 07/24/2024 07/24/2024 2:29 PM DIESEL MAINTENANCE TECHNICIAN Assessment Noted Time PHQ-9 Depression Total Score: 1 03/07/20 10:29 AM CDT documented as of this encounter Care Teams Map Maker Relationship Specialty Start Date End Date Keith Craft MD PCP - General Family Medicine 01/14/19 12/26/23 Liz Capellan DO [address] [address] PCP - General Family Medicine 12/27/23 Quang Locke DO Gastroenterology 01/18/16 [place] [address] [address] 05/25/21 Werner Swift MD #2 [place] [address] Consulting Physician Pulmonary Disease 01/30/22 Yasmin Restrepo MD #[address] [address] Consulting Physician Endocrinology 07/20/24 documented as of this encounter
--- OUTSIDE RECORDS SUMMARY | 2024-08-16 19:29 | XMS_ITS | Encounter Summary ---
Author Organization [facility] Address [address] [place] [address] Phone Care Team Providers Care Traffic Director Name Role Phone Quang Locke DO Unavailable [phone] Keith Craft MD Primary Care Provider [phone] Bri Rollins RN Unavailable Unavailable Silvio Schulte MD Unavailable [phone] Bri Rollins RN Unavailable Unavailable Werner Swift MD Unavailable Liz Capellan DO Primary Care Provider [phone] Yasmin Restrepo MD Unavailable Reason for Visit * Reason Comments Medication Refill Encounter Details Date Type Department Care Team (Late st Contact Info) Description 01/18/2022 Refill [facility] #2 [place] [address] Keith Craft MD #1 [place] [address] Medication Refill Social History Tobacco Use Types [...] 09/08/21 Office Visit Brie Denis, NICOLE [facility] 08/14/21 Office Visit Keith [facility] MD [facility] [...] Description 08/27/2024 1:15 PM CDT Office Visit [facility] - Endocrinology - [place] #2 [place] [address] Yasmin Restrepo MD #[address] [address] 09/02/2024 2:00 PM CDT Appointment [facility] Respiratory Therapy 1 [place] [address] Werner Swift MD #2 [place] [address] Discharge Disposition: Discharged to home or Selfcare 10/08/2024 1:40 PM CDT Office Visit [facility] - Family Medicine [facility] #2 [place] [address] Liz Capellan, DO [address] [address] 11/16/2024 1:00 PM CDT Office Visit [facility] - Pulmonology & Sleep Medicine [facility] #2 [place] [address] Werner Swift MD #2 [place] [address] documented as of this encounter Goals Goal [...] Zones/Action plan education. I will notify my Hhas if my symptoms fall in the y [...] 19 04/20/2022 04/20/2022 04/30/2022 12:1 8 AM DECONTAMINATION TECHNICIAN COVID - 19 07/18/2022 07/18/2022 07/28/2022 12:1 6 AM DECONTAMINATION TECHNICIAN COVID - 19 08/21/2022 08/21/2022 08/22/2022 8:31 AM CDT Respiratory Rule Out - RPA 08/21/2022 08/21/2022 0 08/22/2022 3:21 PM CDT COVID - 19 04/18/2023 04/18/2023 04/28/2023 12:1 6 AM DECONTAMINATION TECHNICIAN COVID - 19 07/13/2023 07/13/2023 07/23/2023 12:1 6 AM DECONTAMINATION TECHNICIAN Respiratory Rule Out - RPA 03/17/2024 03/17/2024 1 3:36 PM CDT COVID - 19 04/27/2024 04/27/2024 04/27/2024 2:19 PM DECONTAMINATION TECHNICIAN Respiratory Rule-Out 07/24/2024 07/24/2024 025 2:29 PM DECONTAMINATION TECHNICIAN COVID - 19 07/24/2024 07/24/2024 07/24/2024 2:29 PM DECONTAMINATION TECHNICIAN Assessment Noted Time PHQ-9 Depression Total Score: 1 03/07/20 21 10:29 AM CDT documented as of this encounter Care Teams Traffic Director Relationship Specialty Start Date End Date Keith Craft MD PCP - General Family Medicine 01/14/19 12/26/23 Liz Capellan DO [address] [address] PCP - General Family Medicine 12/27/23 Quang Locke DO Gastroenterology 01/18/16 Bri Rollins, RN [place] Hhas 03/07/21 05/22/23 [place] [address] [address] 05/25/21 Bri Rollins, RN [place] Nurse Hhas 03/07/21 05/23/23 Werner Swift MD #2 [place] [address] Consulting Physician Pulmonary Disease 01/30/22 Yasmin Restrepo MD #[address] [address] Consulting Physician Endocrinology 07/20/24 documented as of this encounter
--- OUTSIDE RECORDS SUMMARY | 2024-08-16 19:29 | XMS_ITS | Encounter Summary ---
Author Organization [facility] Address [address] [place] [address] Phone Care Team Providers Care Slurry Blender Name Role Phone Quang Locke DO Unavailable Keith Craft MD Primary Care Provider [phone] Bri Rollins RN Unavailable Unavailable Silvio Schulte MD Unavailable [phone] Bri Rollins RN Unavailable Unavailable Werner Swift MD Unavailable Liz Capellan DO Primary Care Provider [phone] Yasmin Restrepo MD Unavailable Reason for Visit * Reason Comments Medication Refill Encounter Details Date Type Department Care Team (Late st Contact Info) Description 05/13/2023 [facility]ill [facility] #2 [place] [address] Keith Craft MD #1 [place] [address] Medication Refill Social History Tobacco Use Types [...] Kelin Nance RN - 05/13/2023 9:49 AM ICT HELP DESK OFFICER Medication failed the protocol, provider to review [...] Dept 05/02/23 Office Visit Keith Craft MD [facility] [place] 04/12/23 Office Visit Keith Craft MD [facility] 12/10/22 Office Visit Keith Craft MD [facility] [place] 09/10/22 Office Visit Keith Craft MD [facility] 07/18/22 Office Visit Kerri Kauffman, RESEARCH PROGRAM INTERN, PATIENT ACCESS REPRESENTATIVE [facility] 06/07/22 Office Visit Keith Craft MD [facility] 03/02/22 Procedure Visit [facility]AL [facility] [place] 03/02/22 Office Visit Keith Craft MD [facility] [...] 07/18/22 Office Visit Kerri Kauffman, REBECCA, JAKOB [facility] [place] 06/07/22 Office Visit Keith [...] [place] 12/10/22 Office Visit Keith Craft MD [facility] 09/10/22 Office Visit Keith Craft MD [facility] 07/18/22 Office Visit Kerri Kauffman, RESEARCH PROGRAM INTERN, JAKOB [facility] 06/07/22 Office Visit Keith Craft MD [facility] Showing recent visits within past 365 days and meeting all other requirements Future Appointments No visits were found meeting these conditions. Showing future appointments within next 90 days and meeting all other requirements Passed - Active short-acting beta agonist prescription HELP DESK OFFICER documented in this encounter Plan of Treatment Upcoming Encounters Date Type Department Care Team (Late st Contact Info) Description 08/27/2024 1:15 PM CDT Office Visit [facility] - Endocrinology - [place] #2 [place] [address] Yasmin Restrepo MD #[address] [address] 09/02/2024 2:00 PM CDT Appointment [facility] Respiratory Therapy 1 [place] [address] Werner Swift MD #2 [place] [address] Discharge Disposition: Discharged to home or Selfcare 10/08/2024 1:40 PM CDT Office Visit [facility] - Family Medicine - [place] #2 [place] [address] Liz Capellan, DO [address] [address] 11/16/2024 1:00 PM CDT Office Visit [facility] - Pulmonology & [facility] Medicine - [place] #2 [facility] [place] [address] Wernre Swift MD #2 [facility] [place] [address] documented as of this encounter Goals Goal [...] Zones/Action plan education. I will notify my Teacher Of The Handicapped if my symptoms fall in the y [...] 07/13/2023 07/13/2023 07/23/2023 12:1 6 AM ICT HELP DESK OFFICER Respiratory Rule Out - RPA 03/17/2024 03/17/2024 1 3:36 PM CDT COVID - 19 04/27/2024 04/27/2024 04/27/2024 2:19 PM ICT HELP DESK OFFICER Respiratory Rule-Out 07/24/2024 07/24/2024 025 2:29 PM ICT HELP DESK OFFICER COVID - 19 07/24/2024 07/24/2024 07/24/2024 2:29 PM ICT HELP DESK OFFICER Assessment Noted Time PHQ-9 Depression Total Score: 1 03/07/20 10:29 AM CDT documented as of this encounter Care Teams Slurry Blender Relationship Specialty Start Date End Date Keith Craft MD PCP - General Family Medicine 01/14/19 12/26/23 Liz Capellan DO [address] [address] PCP - General Family Medicine 12/27/23 Quang Locke DO Gastroenterology 01/18/16 Bri Rollins, RN [place] Teacher Of The Handicapped 03/07/21 05/22/23 [place] [id number] [address] 05/25/21 Bri Rollins, RN [place] Nurse Teacher Of The Handicapped 03/07/21 05/23/23 Werner Swift MD #2 [place] [address] Consulting Physician Pulmonary Disease 01/30/22 Yasmin Restrepo MD #[address] [address] Consulting Physician Endocrinology 07/20/24 documented as of this encounter
--- OUTSIDE RECORDS SUMMARY | 2024-08-16 19:29 | XMS_ITS | Encounter Summary ---
Author Organization [facility] Address [address] [place] [address] Phone Care Team Providers Care Food And Beverage Coordinator Name Role Phone Quang Locke DO Unavailable [phone] Keith Craft MD Primary Care Provider [phone] Bri Rollins RN Unavailable Unavailable Silvio Schulte MD Unavailable [phone] Bri Rollins RN Unavailable Unavailable Werner Swift MD Unavailable Liz Capellan DO Primary Care Provider [phone] Yasmin Restrepo MD Unavailable Reason for Visit * Reason Comments Medication Refill Encounter Details Date Type Department Care Team (Late st Contact Info) Description 05/15/2023 Refill [facility] #2 [place] [address] Keith Craft MD #1 [place] [address] Medication Refill Social History Tobacco Use Types [...] Telephone Encounter - Gloria Conrejo RN - 05/16/2023 9:40 AM CST Medication failed the protocol, provider to review and approve the medication order if appropriate. Requested Prescriptions Pending Prescriptions Disp Refills ergocalciferol (VITAMIN D) 71066 UNIT Capsule [Pharmacy Med Name: VITAMIN D [id number] CAPSULE] 12 Capsule 0 Sig: TAKE ONE [...] 07/18/22 Office Visit Kerri Kauffman, REBECCA, JAKOB [facility] [place] 06/07/22 Office Visit Keith Craft MD [facility] [...] Dept 05/02/23 Office Visit Keith Craft MD [facility] [place] 04/12/23 Office Visit Keith Craft MD [facility] 12/10/22 Office Visit Keith Craft MD [facility] 09/10/22 Office Visit Keith Craft MD [facility] 07/18/22 Office Visit Kerri Kauffman APRN, JAKOB [facility] 06/07/22 Office Visit Keith Craft MD [facility] Showing recent visits within past 365 days and meeting all other requirements Future Appointments No visits were found meeting these conditions. Showing future appointments within next 90 days and meeting all other requirements ER'S MATE documented in this encounter Plan of Treatment Upcoming Encounters Date Type Department Care Team (Late st Contact Info) Description 08/27/2024 1:15 PM CDT Office Visit [facility] - Endocrinology [facility] #2 [place] [address] Yasmin Restrepo MD #[address] [phone] 09/02/2024 2:00 PM CDT [facility] 1 [place] [address] Werner Swift MD #2 [place] [address] Discharge Disposition: Discharged to home or Selfcare 10/08/2024 1:40 PM CDT Office Visit [facility] Family Medicine [facility] #2 [place] [address] Liz Capellan, DO 2 [facility] [address] [place] [address] 11/16/2024 1:00 PM CDT [facility] Visit [facility] - [facility] - [place] [address] [place] [address] Werner Swift MD #[address] [place] [address] documented as of this encounter Goals Goal [...] Zones/Action plan education. I will notify my Paint Laboratory Technician if my symptoms fall in the [...] 19 07/13/2023 07/13/2023 07/23/2023 12:1 6 AM GUNNER'S MATE Respiratory Rule Out - RPA 03/17/2024 03/17/2024 1 3:36 PM CDT COVID - 19 04/27/2024 04/27/2024 04/27/2024 2:19 PM GUNNER'S MATE Respiratory Rule-Out 07/24/2024 07/24/2024 025 2:29 PM GUNNER'S MATE COVID - 19 07/24/2024 07/24/2024 07/24/2024 2:29 PM GUNNER'S MATE Assessment Noted Time PHQ-9 Depression Total Score: 1 03/07/20 10:29 AM CDT documented as of this encounter Care Teams Food And Beverage Coordinator Relationship Specialty Start Date End Date Keith Craft MD PCP - General Family Medicine 01/14/19 12/26/23 Liz Capellan DO [address] [address] PCP - General Family Medicine 12/27/23 Quang Locke DO Gastroenterology 01/18/16 Bri Rollins RN [place] Paint Laboratory Technician 03/07/21 05/22/23 [place] [address] [address] 05/25/21 Bri Rollins RN [place] Nurse Paint Laboratory Technician 03/07/21 05/23/23 Werner Swift MD #2 [place] [address] Consulting Physician Pulmonary Disease 01/30/22 Yasmin Restrepo MD #[address] [address] Consulting Physician Endocrinology 07/20/24 documented as of this encounter
--- OUTSIDE RECORDS SUMMARY | 2024-08-16 19:29 | XMS_ITS | Encounter Summary ---
Author Organization [facility] Address [address] [place] [address] Phone Care Team Providers Care Tax Attorney Name Role Phone Quang Locke Oswaldo PRESLEY Unavailable [phone] Silvio Schulte MD Unavailable [phone] Werner Swift MD Unavailable Liz Capellan DO Primary Care Provider Yasmin Restrepo MD Unavailable Encounter Details Date Type Department Care Team (Late st Contact Info) Description 04/30/2024 Home Health Resumpti on of Care Planning [facility] [address] [place], [place] [address] Social History Tobacco Use Types Packs/Day Years Used Date Smoking Tobacco: Former Cigarettes 2 50 1 - 03/16/2018 Smokeless Tobacco: Never Comments:Still uses nictoine patches and gum Alcohol Use Standard Drinks/Week Comments No 0 (1 standard drink = 0.6 oz pur e alcohol) [facility] Utilities Answer Date Recorded In the past 12 months has [employer] electric, gas, oil, or water company threatened [...] How often do you attend muslim or mu-ism serv ices? Patient declined 04/27/2024 Do you [...] Total Score - Questions 1-9 4 10/25 [facility] - Occupational Stress Questionnaire Answer Date Recorded [...] in a mcc (including now)? No 07/13/2023 Housing Stability Vital [...] any time in the past 12 m [facility], were you homeless or living in a mcc (including now)? Patient declined 04/27/2024 Education Answer [...] Description 08/27/2024 1:15 PM CDT Office Visit [facility] - [facility] - [place] [address] [place] [address] Yasmin Restrepo MD #[address] [address] 09/02/2024 2:00 PM CDT Appointment [facility] Respiratory Therapy 1 [place] [address] Werner Swift MD #2 [place] [address] Discharge Disposition: Discharged to home or Selfcare 10/08/2024 1:40 PM CDT Office [facility] #2 [place] [address] Liz Capellan, DO [address] [address] 11/16/2024 1:00 PM CDT Office Visit [facility] - Pulmonology & [facility] #2 [place] [address] Werner Swift MD #2 [place] [address] documented as of this encounter Goals Goal [...] Zones/Action plan education. I will notify my Concrete Form Setter And Finisher if my symptoms fall in the y [...] to remove isolation flag. 10/20/2021 10/20/2021 Respiratory Rule-Out 07/24/2024 07/24/2024 025 2:29 PM PROFESSIONAL SYSTEM ADMINISTRATOR COVID - 19 07/24/2024 07/24/2024 07/24/2024 2:29 PM PROFESSIONAL SYSTEM ADMINISTRATOR Assessment Noted Time PHQ-9 Depression Total Score: 4 11/08/19 24 9:33 AM CDT documented as of this encounter Care Teams Tax Attorney Relationship Specialty Start Date End Date Liz Capellan DO [address] [address] PCP - General Family Medicine 12/27/23 Quang Locke DO Gastroenterology 01/18/16 [place] [address] [address] 05/25/21 Werner Swift MD #2 [place] [address] Consulting Physician Pulmonary Disease 01/30/22 Yasmin Restrepo MD [address] [address] Consulting Physician Endocrinology 07/20/24 documented as of this encounter
--- OUTSIDE RECORDS SUMMARY | 2024-08-16 19:29 | XMS_ITS | Encounter Summary ---
Author Organization [facility] Address [address] [place] [address] Phone Care Team Providers Care Field Administrative Assistant Name Role Phone Quang Locke DO Unavailable [phone] Keith Craft MD Primary Care Provider [phone] Bri Rollins RN Unavailable Unavailable Silvio Schulte MD Unavailable [phone] Bri Rollins RN Unavailable Unavailable Werner Swift MD Unavailable Liz Capellan DO Primary Care Provider [phone] Yasmin Restrepo MD Unavailable Reason for Visit * Reason Comments Medication Refill Encounter Details Date Type Department Care Team (Late st Contact Info) Description 01/01/2022 Refill [facility] #2 [place] [address] Keith Craft MD #1 [place] [address] Medication Refill Social History Tobacco Use Types [...] [place] 09/08/21 Office Visit Brie Denis, PAC [facility] 08/14/21 Office Visit Keith Craft MD [facility] 07/31/21 Office Visit Keith Craft MD [facility] 05/25/21 Office Visit Marcin Anderson APRN, INDUSTRIAL EQUIPMENT MECHANIC [facility] 05/05/21 Office Visit Brie Denis, PAC [facility] 04/14/21 Office Visit [facility] 03/23/21 Office Visit Keith Craft MD [facility] Showing recent visits within past 365 days and meeting all other requirements Future Appointments Date Type Provider Dept 03/09/22 Appointment Keith Craft MD [facility] Showing future appointments within next 90 days and meeting all other requirements documented in this encounter Plan of Treatment Upcoming Encounters Date Type Department Care Team (Late st Contact Info) Description 08/27/2024 1:15 PM CDT Office Visit [facility] - Endocrinology - [place] #2 [place] [address] Yasmin Restrepo MD #[address] [phone] 09/02/2024 2:00 PM CDT Appointment [facility] Respiratory Therapy 1 [place] [address] Werner Swift MD #2 [place] [address] Discharge Disposition: Discharged to home or Selfcare 10/08/2024 1:40 PM CDT Office Visit [facility] - Family Medicine - [place] #2 [place] [address] Liz Capellan, DO [address] [address] 11/16/2024 1:00 PM CDT Office Visit [facility] - Pulmonology & Sleep Medicine - [place] #2 [place] [address] Werner Swift MD #2 [place] [address] documented as of this encounter Goals Goal [...] education. I will notify my Quality Control Tech Raw Materials if my symptoms fall in the y [...] 19 04/20/2022 04/20/2022 04/30/2022 12:1 8 AM PULP GRINDER FEEDER COVID - 19 07/18/2022 07/18/2022 07/28/2022 12:1 6 AM PULP GRINDER FEEDER COVID - 19 08/21/2022 08/21/2022 08/22/2022 8:31 AM CDT Respiratory Rule Out - RPA 08/21/2022 08/21/2022 0 08/22/2022 3:21 PM CDT COVID - 19 04/18/2023 04/18/2023 04/28/2023 12:1 6 AM PULP GRINDER FEEDER COVID - 19 07/13/2023 07/13/2023 07/23/2023 12:1 6 AM PULP GRINDER FEEDER Respiratory Rule Out - RPA 03/17/2024 03/17/2024 1 3:36 PM CDT COVID - 19 04/27/2024 04/27/2024 04/27/2024 2:19 PM PULP GRINDER FEEDER Respiratory Rule-Out 07/24/2024 07/24/2024 025 2:29 PM PULP GRINDER FEEDER COVID - 19 07/24/2024 07/24/2024 07/24/2024 2:29 PM PULP GRINDER FEEDER Assessment Noted Time PHQ-9 Depression Total Score: 1 03/07/20 10:29 AM CDT documented as of this encounter Care Teams Field Administrative Assistant Relationship Specialty Start Date End Date Keith Craft MD PCP - General Family Medicine 01/14/19 12/26/23 Liz Capellan DO [address] [address] PCP - General Family Medicine 12/27/23 Quang Locke DO Gastroenterology 01/18/16 Bri Rollins RN [place] Quality Control Tech Raw Materials 03/07/21 05/22/23 [place] [address] [address] 05/25/21 Bri Rollins RN [place] Nurse Quality Control Tech Raw Materials 03/07/21 05/23/23 Werner Swift MD #2 [place] [address] Consulting Physician Pulmonary Disease 01/30/22 Yasmin Restrepo MD #[address] [address] Consulting Physician Endocrinology 07/20/24 documented as of this encounter
--- OUTSIDE RECORDS SUMMARY | 2024-08-16 19:29 | XMS_ITS | Encounter Summary ---
Author Organization [facility] Address [address] [place] [address] Phone Care Team Providers Care Certified Vehicle Fire Investigator Name Role Phone Quang Locke DO Unavailable Keith Craft MD Primary Care Provider [phone] Bri Rollins RN Unavailable Unavailable Silvio Schulte MD Unavailable [phone] Bri Rollins RN Unavailable Unavailable Werner Swift MD Unavailable Liz Capellan DO Primary Care Provider Yasmin Restrepo MD Unavailable Reason for Visit * Reason Comments Medication Refill Encounter Details Date Type Department Care Team (Late st Contact Info) Description 02/27/2022 Refill [facility] #2 [place] [address] Keith Craft MD #1 [place] [address] Medication Refill Social History Tobacco Use Types [...] Dept 11/03/21 Office Visit [facility] 10/19/21 Office Visit Keith Craft MD [facility] 10/05/21 Office Visit Keith Craft MD [facility] 09/08/21 Office Visit Brie Denis, NICOLE [facility] 08/14/21 Office Visit Keith Craft MD [facility] 07/31/21 Office Visit Keith Craft MD [facility] 05/25/21 Office Visit Marcin Anderson, HOUSING COORDINATOR, ACID CONCENTRATOR [facility] 05/05/21 Office Visit Cira Yarely, PAC [facility] 04/14/21 Office Visit Keith [facility] MD [facility] 03/23/21 Office Visit [facility] Showing recent visits within past 365 days and meeting all other requirements Future Appointments Date Type Provider Dept 03/02/22 Appointment Keith Craft MD [facility] 03/02/22 Appointment [facility] DIABETIC RETINAL IMAGING [facility] 03/09/22 Appointment [facility] Show[facility] future appointments within next 90 days and meeting all other requirements documented in this encounter Plan of Treatment Upcoming Encounters Date Type Department Care Team (Late st Contact Info) Description 08/27/2024 1:15 PM CDT Office Visit [facility] - Endocrinology - [place] #2 [place] [phone] Yasmin Restrepo MD #[address] [phone] 09/02/2024 2:00 PM CDT Appointment [facility] Respiratory Therapy 1 [place] [address] Werner Swift MD #2 [place] [address] Discharge Disposition: Discharged to home or Selfcare 10/08/2024 1:40 PM CDT Office Visit [facility] - Family Medicine [facility] #2 [place] [address] Liz Capellan, DO [address] [address] 11/16/2024 1:00 PM CDT Office Visit [facility] - Pulmonology & Sleep Medicine [facility] #[address] [place] [address] Werner Swift MD [address] [place] [address] documented as of this encounter Goals Goal [...] Zones/Action plan education. I will notify my Dog Walker if my symptoms fall in the y [...] 19 04/20/2022 04/20/2022 04/30/2022 12:1 8 AM ELECTRIC LOCOMOTIVE CRANE OPERATOR COVID - 19 07/18/2022 07/18/2022 07/28/2022 12:1 6 AM ELECTRIC LOCOMOTIVE CRANE OPERATOR COVID - 19 08/21/2022 08/21/2022 08/22/2022 8:31 AM CDT Respiratory Rule Out - RPA 08/21/2022 08/21/2022 0 08/22/2022 3:21 PM CDT COVID - 19 04/18/2023 04/18/2023 04/28/2023 12:1 6 AM ELECTRIC LOCOMOTIVE CRANE OPERATOR COVID - 19 07/13/2023 07/13/2023 07/23/2023 12:1 6 AM ELECTRIC LOCOMOTIVE CRANE OPERATOR Respiratory Rule Out - RPA 03/17/2024 03/17/2024 1 3:36 PM CDT COVID - 19 04/27/2024 04/27/2024 04/27/2024 2:19 PM ELECTRIC LOCOMOTIVE CRANE OPERATOR Respiratory Rule-Out 07/24/2024 07/24/2024 025 2:29 PM ELECTRIC LOCOMOTIVE CRANE OPERATOR COVID - 19 07/24/2024 07/24/2024 07/24/2024 2:29 PM ELECTRIC LOCOMOTIVE CRANE OPERATOR Assessment Noted Time PHQ-9 Depression Total Score: 1 03/07/20 21 10:29 AM CDT documented as of this encounter Care Teams Certified Vehicle Fire Investigator Relationship Specialty Start Date End Date Keith Craft MD PCP - General Family Medicine 01/14/19 12/26/23 Liz Capellan DO [address] [address] PCP - General Family Medicine 12/27/23 Quang Locke DO Gastroenterology 01/18/16 Bri Rollins RN [place] Dog Walker 03/07/21 05/22/23 [place] [address] [address] 05/25/21 Bri Rollins, RN [place] Nurse Dog Walker 03/07/21 05/23/23 Werner Swift MD #2 [place] [address] Consulting Physician Pulmonary Disease 01/30/22 Yasmin Restrepo MD #[address] [address] Consulting Physician Endocrinology 07/20/24 documented as of this encounter
--- OUTSIDE RECORDS SUMMARY | 2024-08-16 19:29 | XMS_ITS | Encounter Summary ---
Author Organization [facility] Address [address] [place] [address] Phone Care Team Providers Care Jewelry Sales Name Role Phone Quang Locke DO Unavailable [phone] Keith Craft MD Primary Care Provider [phone] Bri Rollins RN Unavailable Unavailable Silvio Schulte MD Unavailable [phone] Bri Rollins RN Unavailable Unavailable Werner Swift MD Unavailable Liz Capellan DO Primary Care Provider [phone] Yasmin Restrepo MD Unavailable Reason for Visit * Reason Comments Medication Refill Encounter Details Date Type Department Care Team (Late st Contact Info) Description 03/19/2022 Refill [facility] - [facility] Medicine [facility] #2 [place] [address] Keith Craft MD #1 [place] [address] Medication Refill Social History Tobacco Use Types [...] Office Visit [facility] - Endocrinology [facility] #2 [place] [phone] Yasmin Restrepo MD #[address] [address] 09/02/2024 2:00 PM CDT Appointment [facility] 1 [place] [address] Werner Swift MD #2 [place] [address] Discharge Disposition: Discharged to home or Selfcare 10/08/2024 1:40 PM CDT Office [facility] - Family Medicine - [place] #2 [place] [address] Liz Capellan, DO 2 [facility] [address] [place] [address] 11/16/2024 1:00 PM CDT Office Visit [facility] - Pulmonology & Sleep Medicine [facility] #2 [place] [address] Werner Swift MD #2 [facility] [place] [address] documented as of this encounter Goals Goal [...] Zones/Action plan education. I will notify my Veterinary Hospital Shift Lead if my symptoms fall in the y [...] 19 04/20/2022 04/20/2022 04/30/2022 12:1 8 AM STRATEGIC PLANNING CONSULTANT COVID - 19 07/18/2022 07/18/2022 07/28/2022 12:1 6 AM STRATEGIC PLANNING CONSULTANT COVID - 19 08/21/2022 08/21/2022 08/22/2022 8:31 AM CDT Respiratory Rule Out - RPA 08/21/2022 08/21/2022 0 08/22/2022 3:21 PM CDT COVID - 19 04/18/2023 04/18/2023 04/28/2023 12:1 6 AM STRATEGIC PLANNING CONSULTANT COVID - 19 07/13/2023 07/13/2023 07/23/2023 12:1 6 AM STRATEGIC PLANNING CONSULTANT Respiratory Rule Out - RPA 03/17/2024 03/17/2024 1 3:36 PM CDT COVID - 19 04/27/2024 04/27/2024 04/27/2024 2:19 PM STRATEGIC PLANNING CONSULTANT Respiratory Rule-Out 07/24/2024 07/24/2024 025 2:29 PM STRATEGIC PLANNING CONSULTANT COVID - 19 07/24/2024 07/24/2024 07/24/2024 2:29 PM STRATEGIC PLANNING CONSULTANT Assessment Noted Time PHQ-9 Depression Total Score: 1 03/07/20 21 10:29 AM CDT documented as of this encounter Care Teams Jewelry Sales Relationship Specialty Start Date End Date Keith Craft MD PCP - General Family Medicine 01/14/19 12/26/23 Liz Capellan DO 2 [place] [address] PCP - General Family Medicine 12/27/23 Quang Locke DO Gastroenterology 01/18/16 Bri Rollins, RN [place] [facility] Shift Lead 03/07/21 05/22/23 [place] [id number] [address] 05/25/21 Bri Rollins, KATEY [place] Nurse [facility] Shift Lead 03/07/21 05/23/23 Werner Swift MD #2 [place] [address] Consulting Physician Pulmonary Disease 01/30/22 Yasmin Restrepo MD #[address] [address] Consulting Physician Endocrinology 07/20/24 documented as of this encounter
--- OUTSIDE RECORDS SUMMARY | 2024-08-16 19:29 | XMS_ITS | Encounter Summary ---
Author Organization [facility] Address [address] [place] [address] Phone Care Team Providers Care Repair Clerk Name Role Phone Quang Locke DO Unavailable [phone] Keith Craft MD Primary Care Provider [phone] Bri Rollins RN Unavailable Unavailable Silvio Schulte MD Unavailable [phone] Bri Rollins RN Unavailable Unavailable Werner Swift MD Unavailable Liz Capellan DO Primary Care Provider Yasmin Restrepo MD Unavailable Reason for Visit * Reason Comments Medication Refill Encounter Details Date Type Department Care Team (Late st Contact Info) Description 11/30/2021 Refill [facility] - Family Medicine [facility] #2 [place] [address] Keith Craft MD #1 [place] [address] Medication Refill Social History Tobacco Use Types [...] [facility] 09/08/21 Office Visit Brie Denis PAC [facility] 08/14/21 Office Visit Keith Craft MD [facility] 07/31/21 Office Visit Keith Craft MD [facility] 05/25/21 Office Visit Marcin Anderson APRN, PANEL BEATER [facility] 05/05/21 Office Visit Brie Denis, PAC [facility] 04/14/21 Office Visit Keith Craft MD [facility] 03/23/21 Office Visit Keith Craft MD [facility] Showing recent visits within past 365 days and meeting all other requirements Future Appointments Date Type Provider Dept 12/19/21 Appointment Keith Craft MD [facility] Showing future appointments within next 90 days and meeting all other requirements documented in this encounter Plan of Treatment Upcoming Encounters Date Type Department Care Team (Late st Contact Info) Description 08/27/2024 1:15 PM CDT Office Visit [facility] - Endocrinology - [place] #2 [place] [address] Yasmin Restrepo MD #[address] [address] 09/02/2024 2:00 PM CDT Appointment [facility] Res[facility] Therapy 1 [place] [address] Werner Swift MD #2 [place] [address] Discharge Disposition: Discharged to home or Selfcare 10/08/2024 1:40 PM CDT Office Visit [facility] - Family Medicine - [place] #2 [place] [address] Liz Capellan, DO [address] [address] 11/16/2024 1:00 PM CDT Office Visit [facility] - Pulmonology & Sleep Medicine - [place] #2 [place] [address] Werner Swift MD #2 [place] [address] documented as of this encounter Goals Goal [...] Zones/Action plan education. I will notify my Shipsmith if my symptoms fall in the y [...] 19 04/20/2022 04/20/2022 04/30/2022 12:1 8 AM HAMMER OPERATOR COVID - 19 07/18/2022 07/18/2022 07/28/2022 12:1 6 AM HAMMER OPERATOR COVID - 19 08/21/2022 08/21/2022 08/22/2022 8:31 AM CDT Respiratory Rule Out - RPA 08/21/2022 08/21/2022 0 08/22/2022 3:21 PM CDT COVID - 19 04/18/2023 04/18/2023 04/28/2023 12:1 6 AM HAMMER OPERATOR COVID - 19 07/13/2023 07/13/2023 07/23/2023 12:1 6 AM HAMMER OPERATOR Respiratory Rule Out - RPA 03/17/2024 03/17/2024 1 3:36 PM CDT COVID - 19 04/27/2024 04/27/2024 04/27/2024 2:19 PM HAMMER OPERATOR Respiratory Rule-Out 07/24/2024 07/24/2024 025 2:29 PM HAMMER OPERATOR COVID - 19 07/24/2024 07/24/2024 07/24/2024 2:29 PM HAMMER OPERATOR Assessment Noted Time PHQ-9 Depression Total Score: 1 03/07/20 10:29 AM CDT documented as of this encounter Care Teams Repair Clerk Relationship Specialty Start Date End Date Keith Craft MD PCP - General Family Medicine 01/14/19 12/26/23 Liz Capellan DO [address] [address] PCP - General Family Medicine 12/27/23 Quang Locke DO Gastroenterology 01/18/16 Bri Rollins RN [place] [employer] 03/07/21 05/22/23 [place] [address] [address] 05/25/21 Bri Rollins RN [place] Nurse [employer] 03/07/21 05/23/23 Werner Swift MD #2 [place] [address] Consulting Physician Pulmonary Disease 01/30/22 Yasmin Restrepo MD #[address] [phone] Consulting Physician Endocrinology 07/20/24 documented as of this encounter
--- OUTSIDE RECORDS SUMMARY | 2024-08-16 19:29 | XMS_ITS | Encounter Summary ---
Author Organization [facility] Address [address] [place] [address] Phone Care Team Providers Care Border Measurer Name Role Phone Quang Locke DO Unavailable [phone] Keith Craft MD Primary Care Provider [phone] Bri Rollins RN Unavailable Unavailable Silvio Schulte MD Unavailable [phone] Bri Rollins RN Unavailable Unavailable Werner Swift MD Unavailable Liz Capellan DO Primary Care Provider Yasmin Restrepo MD Unavailable Reason for Visit * Reason Comments Medication Refill Encounter Details Date Type Department Care Team (Late st Contact Info) Description 04/02/2022 Refill [facility] - Family Medicine [facility] #2 [place] [address] Keith Craft MD #1 [place] [address] Medication Refill Social History Tobacco Use Types [...] Coronavirus/COVID-19? No / Unsure 04/03/2022 9:15 AM VP [employer] documented as of this encounter Miscellaneous Notes [...] Date Type Provider Dept 03/02/22 Procedure Visit [facility] 03/02/22 Office Visit Keith Craft MD [facility] 11/03/21 Office Visit Keith Craft MD [facility] 10/19/21 Office Visit Keith [facility] MD [facility] 10/05/21 Office Visit Keith Craft MD [facility] 09/08/21 Office Visit Brie Denis, PAC [facility] 08/14/21 Office Visit Keith Craft MD [facility] 07/31/21 Office Visit Keith Craft MD [facility] 05/25/21 Office Visit Marcin Anderson APRN, SOFTWARE PROGRAM MANAGER [facility] 05/05/21 Office Visit Brie Denis, NICOLE [facility] Showing recent visits within past 365 days and meeting all other requirements Future Appointments Date Type Provider Dept 06/04/22 Appointment Keith Craft MD [facility] Showing future appointments within next 90 days and meeting all other requirements [employer] documented in this encounter Plan of Treatment Upcoming Encounters Date Type Department Care Team (Late st Contact Info) Description 08/27/2024 1:15 PM CDT Office Visit [facility] - Endocrinology - [place] #2 [place] [address] Yasmin Restrepo MD #[address] [phone] 09/02/2024 2:00 PM CDT Appointment [facility] Respiratory Therapy 1 [place] [address] Werner Swift MD #2 [place] [address] Discharge Disposition: Discharged to home or Selfcare 10/08/2024 1:40 PM CDT Office Visit [facility] - Family Medicine - [place] #[address] [facility] [place] [address] Liz Capellan, DO [address] [address] 11/16/2024 1:00 PM CDT Office Visit [facility] - Pulmonology & Sleep Medicine - [place] #2 [place] [address] Werner Swift MD #2 [place] [address] documented as of this encounter Goals Goal [...] Zones/Action plan education. I will notify my Air Hoist Operator if my symptoms fall in the [...] 19 04/20/2022 04/20/2022 04/30/2022 12:1 8 AM VP [employer] COVID - 19 07/18/2022 07/18/2022 07/28/2022 12:1 6 AM VP [employer] COVID - 19 08/21/2022 08/21/2022 08/22/2022 8:31 AM CDT Respiratory Rule Out - RPA 08/21/2022 08/21/2022 0 08/22/2022 3:21 PM CDT COVID - 19 04/18/2023 04/18/2023 04/28/2023 12:1 6 AM VP [employer] COVID - 19 07/13/2023 07/13/2023 07/23/2023 12:1 6 AM VP [employer] Respiratory Rule Out - RPA 03/17/2024 03/17/2024 1 3:36 PM CDT COVID - 19 04/27/2024 04/27/2024 04/27/2024 2:19 PM [employer] Respiratory Rule-Out 07/24/2024 07/24/2024 025 2:29 PM VP [employer] COVID - 19 07/24/2024 07/24/2024 07/24/2024 2:29 PM VP [employer] Assessment Noted Time PHQ-9 Depression Total Score: 1 03/07/20 21 10:29 AM CDT documented as of this encounter Care Teams Border Measurer Relationship Specialty Start Date End Date Keith Craft MD PCP - General Family Medicine 01/14/19 12/26/23 Liz Capellan DO [address] [address] PCP - General Family Medicine 12/27/23 Quang Locke DO Gastroenterology 01/18/16 Bri Rollins RN [place] Air Hoist Operator 03/07/21 05/22/23 [place] [address] [address] 05/25/21 Bri Rollins RN [place] Nurse Air Hoist Operator 03/07/21 05/23/23 Werner Swift MD #2 [place] [address] Consulting Physician Pulmonary Disease 01/30/22 Yasmin Restrepo MD #[address] [address] Consulting Physician Endocrinology 07/20/24 documented as of this encounter
--- OUTSIDE RECORDS SUMMARY | 2024-08-16 19:29 | XMS_ITS | Encounter Summary ---
Author Organization [facility] Address [address] [place] [address] Phone Care Team Providers Care Interior Wirer Name Role Phone Quang Locke DO Unavailable [phone] Keith Craft MD Primary Care Provider [phone] Bri Rollins RN Unavailable Unavailable Silvio Schulte MD Unavailable Bri Rollins RN Unavailable Unavailable Werner Swift MD Unavailable Liz Capellan DO Primary Care Provider [phone] Yasmin Restrepo MD Unavailable Reason for Visit * Reason Comments Medication Refill Encounter Details Date Type Department Care Team (Late st Contact Info) Description 11/22/2021 Refill [facility] Medical [address] [place] [address] Keiht Craft MD #1 [place] [address] Medication Refill Social History Tobacco Use Types [...] Office Visit [facility] #2 [place] [address] Yasmin Restrepo MD #[address] [address] 09/02/2024 2:00 PM CDT Appointment [facility] Respiratory Therapy 1 [place] [address] Werner Swift MD #2 [place] [address] Discharge Disposition: Discharged to home or Selfcare 10/08/2024 1:40 PM CDT Office Visit [facility] - Family Medicine - [place] #2 [place] [address] Liz Capellan, DO 2 [facility] [address] [place] [address] 11/16/2024 1:00 PM CDT Office Visit [facility] - Pulmonology & Sleep Medicine - [place] #2 [place] [address] Werner Swift MD #2 [place] [address] documented as of this encounter Goals Goal [...] Zones/Action plan education. I will notify my Upholstery Trimmer if my symptoms fall in the y [...] 19 04/20/2022 04/20/2022 04/30/2022 12:1 8 AM COMBAT RIFLE CREWMEMBER COVID - 19 07/18/2022 07/18/2022 07/28/2022 12:1 6 AM COMBAT RIFLE CREWMEMBER COVID - 19 08/21/2022 08/21/2022 08/22/2022 8:31 AM CDT Respiratory Rule Out - RPA 08/21/2022 08/21/2022 0 08/22/2022 3:21 PM CDT COVID - 19 04/18/2023 04/18/2023 04/28/2023 12:1 6 AM COMBAT RIFLE CREWMEMBER COVID - 19 07/13/2023 07/13/2023 07/23/2023 12:1 6 AM COMBAT RIFLE CREWMEMBER Respiratory Rule Out - RPA 03/17/2024 03/17/2024 1 3:36 PM CDT COVID - 19 04/27/2024 04/27/2024 04/27/2024 2:19 PM COMBAT RIFLE CREWMEMBER Respiratory Rule-Out 07/24/2024 07/24/2024 025 2:29 PM COMBAT RIFLE CREWMEMBER COVID - 19 07/24/2024 07/24/2024 07/24/2024 2:29 PM COMBAT RIFLE CREWMEMBER Assessment Noted Time PHQ-9 Depression Total Score: 1 03/07/20 21 10:29 AM CDT documented as of this encounter Care Teams Interior Wirer Relationship Specialty Start Date End Date Keith Craft MD PCP - General Family Medicine 01/14/19 12/26/23 Liz Capellan DO [address] [address] PCP - General Family Medicine 12/27/23 Quang Locke DO Gastroenterology 01/18/16 Bri Rollins, KATEY [place] Upholstery Trimmer 03/07/21 05/22/23 [place] [address] [address] 05/25/21 Bri Rollins RN [place] Nurse Upholstery Trimmer 03/07/21 05/23/23 Werner Swift MD #2 [place] [address] Consulting Physician Pulmonary Disease 01/30/22 Yasmin Restrepo MD #[address] [phone] Consulting Physician Endocrinology 07/20/24 documented as of this encounter
--- OUTSIDE RECORDS SUMMARY | 2024-08-16 19:29 | XMS_ITS | Encounter Summary ---
Author Organization [facility] Address [address] [place] [address] Phone Care Team Providers Care Technical Adjuster Name Role Phone Quang Locke Oswaldo PRESLEY Unavailable [phone] Silvio Schulte MD Unavailable [phone] Werner Swift MD Unavailable Liz Capellan DO Primary Care Provider [phone] Yasmin Restrepo MD Unavailable Encounter Details Date Type Department Care Team (Late st Contact Info) Description 05/04/2024 Lab Requisition [facility] Laboratory Services 1 [place] [address] Liz Capellan DO [address] [address] Pneumonia, unspecified organism Social History Tobacco Use Types Packs/Day Years Used Date Smoking Tobacco: Former Cigarettes 2 50 1 - 03/16/2018 Smokeless Tobacco: Never Comments:Still uses nictoine patches and gum Alcohol Use Standard Drinks/Week Comments No 0 (1 standard drink = 0.6 oz pur e alcohol) [facility] Utilities Answer Date Recorded In the [...] declined 04/27/2024 How often do you attend yarsani or gnosticist serv ices? Patient declined 04/27/2024 Do you belong to any clubs o r organizations such as yarsani groups, unions, fraternal or athletic groups, or [...] Total Score - Questions 1-9 4 10/25 [facility] of Occupat ional Health - Occupational Stress [...] a long term (including now)? No 07/13/2023 Housing Stability Vital [...] any time in the past 12 m [facility], were you homeless or living in a long term (including now)? Patient declined 04/27/2024 Education Answer [...] Visit [facility] - [place] #2 [place] [address] Yasmin Restrepo MD #[address] [address] 09/02/2024 2:00 PM CDT [facility]ointment [facility] 1 [place] [address] Werner Swift MD #2 [place] [address] Discharge Disposition: Discharged to home or Selfcare 10/08/2024 1:40 PM CDT Office Visit [facility] Family Medicine [facility] #2 [place] [address] Liz Capellan, DO [address] [address] 11/16/2024 1:00 PM CDT Office Visit [facility] - Pulmonology & Sleep Medicine [facility] #2 [place] [address] Werner Swift MD #2 [place] [address] documented as of this encounter Goals Goal [...] Zones/Action plan education. I will notify my Beverage Manager if my symptoms fall in the y ellow zone . I will consider receiving an influenza and pneumonia vaccination, if applicable. -I will call the office if I experience any symptoms listed above to discuss at home management options. documented as of this encounter Procedures Procedure Name Priority Date/Time Associated Diagnosis Comments CBC WITH AUTO DIFFERENTIAL Routine 05/04/2024 9:30 AM POLICE OFFICER Pneumonia, unspecified organism THYROXINE (T4) TOTAL Routine 05/04/2024 9:30 AM POLICE OFFICER Pneumonia, unspecified organism COMPLETE BLOOD COUNT (CBC) WITH DIFF Routine 05/04/2024 9:30 AM POLICE OFFICER Pneumonia, unspecified organism BASIC METABOLIC PANEL W/ CALCIUM TOTAL Routine 05/04/2024 9:30 AM POLICE OFFICER Pneumonia, unspecified organism documented in this encounter Results * (ABNORMAL) CBC WITH AUTO DIFFERENTIAL (05/04/2024 9:30 AM POLICE OFFICER) WBC 6.71 4.00 - 12.00 10(3)/mcL 05/04/2024 11:14 AM POLICE OFFICER [facility] RBC 3.50(L) 3.80 - 5.30 10(6)/mcL 05/04/2024 11:14 AM POLICE OFFICER [facility] HEMOGLOBIN (HGB) 12.5 12.0 - 15.8 g/dL 05/04/2024 11:14 AM POLICE OFFICER [facility] HEMATOCRIT (HCT) 37.2 36.0 - 47.0 % 05/04/2024 11:[address] [facility] MCV 106.3(H) 82.0 - 96.0 fL 05/04/2024 11:[address] [facility] MCH 35.7(H) 26.0 - 34.0 pg 05/04/2024 11:[address] [facility] MCHC 33.6 31.0 - 36.0 g/dL 05/04/2024 11:[address] [facility] PLATELET COUNT 358 140 - 440 10(3)/mcL 05/04/2024 11:[address] [facility] RDW 12.0 11.8 - 15.5 % 05/04/2024 11:[address] [facility] MPV 9.5(L) 9.7 - 12.4 fL 05/04/2024 11:[address] [facility] NEUTROPHILS 59.1 47.0 - 73.0 % 05/04/2024 11:[address] [facility] LYMPHOCYTES 31.0 18.0 - 42.0 % 05/04/2024 11:[address] [facility] MONOCYTES 9.5 4.0 - 12.0 % 05/04/2024 11:[address] [facility] EOSINOPHILS 0.1 0.0 - 5.0 % 05/04/2024 11:[address] [facility] BASOPHILS 0.3 0.0 - 1.0 % 05/04/2024 11:[address] [facility] ABSOLUTE NEUTROPHILS 3.96 1.60 - 7.70 10(3)/mcL 05/04/2024 11:[address] [facility] ABSOLUTE LYMPHOCYTES 2.08 1.30 - 3.20 10(3)/mcL 05/04/2024 11:[address] [facility] ABSOLUTE MONOCYTES 0.64 0.20 - 1.00 10(3)/mcL 05/04/2024 11:[address] [facility] ABSOLUTE EOSINOPHIL 0.01 0.00 - 0.40 10(3)/[facility] 05/04/2024 11:14 AM POLICE OFFICER [facility] ABSOLUTE BASOPHILS 0.02 0.00 - 0.10 10(3)/mcL 05/04/2024 11:14 AM POLICE OFFICER [facility] NRBC PER 100 WBC 0 05/04/20 11:14 AM POLICE OFFICER [facility] RESULTS ARE CONSISTENT WITH PERIPHERAL SMEAR REVIEW Yes 05/04/2024 11:14 AM POLICE OFFICER [facility] RBC MORPHOLOGY CONSISTENT WITH INDICES Yes 05/04/2024 11:14 AM POLICE OFFICER [facility] Blood No Phlebotomy Charged / Unknown 05/04/2024 9:30 AM POLICE OFFICER 05/04/2024 10:31 AM POLICE OFFICER us Liz Capellan DO HEMATOLOGY ORDERABLES Final R esult Performing Organization Address City/[facility]/ZIP Co de Phone Number [facility] #1 [place] [address] * THYROXINE (T4) TOTAL (05/04/2024 9:30 AM POLICE OFFICER) T4 8.1 5.0 - 13.0 mcg/dL 05/04/2024 11:47 AM POLICE OFFICER [facility] Blood No Phlebotomy Charged / Unknown 05/04/2024 9:30 AM POLICE OFFICER 05/04/2024 10:31 AM POLICE OFFICER us Liz Capellan DO CHEMISTRY ORDERABLES Final Re sult [facility] #1 [place] [address] * (ABNORMAL) BASIC METABOLIC PANEL W/ CALCIUM TOTAL (05/04/2024 9:30 AM POLICE OFFICER) SODIUM 132(L) 136 - 145 mmol/L 05/04/2024 11:27 AM POLICE OFFICER [facility] POTASSIUM 4.2 3.5 - 5.1 mmol/L 05/04/2024 11:[address] [facility] CHLORIDE 99 98 - 107 mmol/L 05/04/2024 11:[address] [facility] CO2, VENOUS 27 22 - 30 mmol/L 05/04/2024 11:[address] [facility] ANION GAP 10.2 <18.0 mmol/L 05/04/2024 11:[address] [facility] GLUCOSE 80 70 - 99 mg/dL 05/04/2024 11:[address] [facility] BUN 31(H) 10 - 20 mg/dL 05/04/2024 11:[address] [facility] CREATININE, BLOOD 1.04(H) 0.60 - 1.00 mg/dL 05/04/2024 11:[address] [facility] BUN/CREATININE RATIO 30(H) 12 - 20 ratio 05/04/2024 11:[address] [facility] CALCIUM 9.0 8.7 - 10.5 mg/dL 05/04/2024 11:[address] [facility] GFR, ESTIMATED 56(L) >=60 05/04/2024 11:[address] [facility] Comment: Creatinine Clearance is the preferred criteria for selecting drug dose adjustments in renally impaired patients. The GFR is provided as additional pertinent clinical information. GFR is reported in mL/min/1.73 sq m. Calculation based on the Chronic Kidney Disease Epidemiology Collaboration (CKD- EPI) equation refit without adjustment for race. GFR, EST. >60 >=60 024 11:[address] [facility] GFR, EST. NONAFRICAN 52(L) >=60 05/04/2024 11:[address] [facility] Blood No Phlebotomy Charged / Unknown 05/04/2024 9:30 AM POLICE OFFICER 05/04/2024 10:31 AM POLICE OFFICER us Liz Capellan DO CHEMISTRY ORDERABLES Final Re sult [facility] #1 [facility] [place] [address] documented in this encounter Visit Diagnoses Diagnosis Pneumonia, unspecified organism documented in this encounter Additional Health Concerns Infection Onset Date Last Indicated Resolved Time Stenotrophomonas maltophilia Comment:Must have a follow up respiratory sample to remove isolation flag. 10/20/2021 10/20/2021 Respiratory Rule-Out 07/24/2024 07/24/2024 025 2:29 PM POLICE OFFICER COVID - 19 07/24/2024 07/24/2024 07/24/2024 2:29 PM POLICE OFFICER Assessment Noted Time PHQ-9 Depression Total Score: 4 11/08/19 24 9:33 AM CDT documented as of this encounter Care Teams Technical Adjuster Relationship Specialty Start Date End Date Liz Capellan DO 2 [facility] [address] [address] PCP - General Family Medicine 12/27/23 Quang Locke DO Gastroenterology 01/18/16 [place] [address] [address] 05/25/21 Werner Swift MD #2 [place] [address] Consulting Physician Pulmonary Disease 01/30/22 Yasmin Restrepo MD #[address] [phone] Consulting Physician Endocrinology 07/20/24 documented as of this encounter
--- OUTSIDE RECORDS SUMMARY | 2024-08-16 19:29 | XMS_ITS | Encounter Summary ---
Author Organization [facility] Address [address] [place] [address] Phone Care Team Providers Care Director Of First Impressions Name Role Phone Quang Locke DO Unavailable [phone] Keith Craft MD Primary Care Provider [phone] Bri Rollins RN Unavailable Unavailable Silvio Schulte MD Unavailable [phone] Bri Rollins RN Unavailable Unavailable Werner Swift MD Unavailable Liz Capellan DO Primary Care Provider [phone] Yasmin Restrepo MD Unavailable Reason for Visit * Reason Comments Medication Refill Encounter Details Date Type Department Care Team (Late st Contact Info) Description 02/04/2021 Refill [facility] - Family Medicine [facility] #2 [place] [address] Keith Craft MD #1 [place] [address] Medication Refill Social History Tobacco Use Types [...] Type Provider Dept 02/03/21 Office Visit Brie Denis PAC [facility] 01/12/21 Office Visit Keith Craft MD [facility] 10/12/20 Office Visit Keith Craft MD [facility] 10/04/20 Office Visit Keith Craft MD [facility] 06/07/20 Office Visit Keith Craft MD [facility] 04/25/20 Office Visit [facility] Showing recent visits within past 365 days and meeting all other requirements Future Appointments Date Type Provider Dept 02/07/21 Appointment Keith Craft MD [facility] 04/14/21 Appointment Keith Craft MD [facility] Showing future appointments within next 90 days and meeting all other requirements Passed - Active short-acting beta agonist prescription documented in this encounter Plan of Treatment Upcoming Encounters Date Type Department Care Team (Late st Contact Info) Description 08/27/2024 1:15 PM CDT Office Visit [facility] - Endocrinology [facility] #2 [place] [address] Yasmin Restrepo MD #[address] [phone] 09/02/2024 2:00 PM CDT Appointment [facility] Respiratory Therapy 1 [place] [address] Werner Swift MD #2 [place] [address] Discharge Disposition: Discharged to home or Selfcare 10/08/2024 1:40 PM CDT Office Visit [facility] Family Medicine [facility] #2 [place] [address] Liz Capellan, DO [address] [address] 11/16/2024 1:00 PM CDT Office Visit [facility] - Pulmonology & Sleep Medicine [facility] #2 [place] [address] Werner Swift MD #2 [place] [address] documented as of this encounter Visit Diagnoses Diagnosis Pulmonary emphysema, unspecified emphysema type (HCC) documented in this encounter Additional Health Concerns Infection Onset Date Last Indicated Resolved Time COVID - 19 07/23/2021 07/23/2021 07/24/2021 6:31 AM SUBSTATION OPERATOR APPRENTICE COVID - 19 10/19/2021 10/19/2021 10/20/2021 7:45 AM CDT Respiratory Rule Out - RPA 10/19/2021 10/19/2021 0 10/20/2021 2:10 PM CDT Stenotrophomonas maltophilia Comment:Must have a follow up respiratory sample to remove isolation flag. 10/20/2021 10/20/2021 COVID - 19 04/20/2022 04/20/2022 04/30/2022 12:1 8 AM SUBSTATION OPERATOR APPRENTICE COVID - 19 07/18/2022 07/18/2022 07/28/2022 12:1 6 AM SUBSTATION OPERATOR APPRENTICE COVID - 19 08/21/2022 08/21/2022 08/22/2022 8:31 AM CDT Respiratory Rule Out - RPA 08/21/2022 08/21/2022 0 08/22/2022 3:21 PM CDT COVID - 19 04/18/2023 04/18/2023 04/28/2023 12:1 6 AM SUBSTATION OPERATOR APPRENTICE COVID - 19 07/13/2023 07/13/2023 07/23/2023 12:1 6 AM SUBSTATION OPERATOR APPRENTICE Respiratory Rule Out - RPA 03/17/2024 03/17/2024 1 3:36 PM CDT COVID - 19 04/27/2024 04/27/2024 04/27/2024 2:19 PM SUBSTATION OPERATOR APPRENTICE Respiratory Rule-Out 07/24/2024 07/24/2024 025 2:29 PM SUBSTATION OPERATOR APPRENTICE COVID - 19 07/24/2024 07/24/2024 07/24/2024 2:29 PM SUBSTATION OPERATOR APPRENTICE Assessment Noted Time PHQ-9 Depression Total Score: 0 02/04/20 21 11:12 AM CDT documented as of this encounter Care Teams Director Of First Impressions Relationship Specialty Start Date End Date Keith Craft MD PCP - General Family Medicine 01/14/19 12/26/23 Liz Capellan DO 2 [facility] [address] [place] [address] PCP - General Family Medicine 12/27/23 Quang Locke DO Gastroenterology 01/18/16 Bri Rollins, RN [place] Slitter Scorer 03/07/21 05/22/23 [place] [address] [address] 05/25/21 Bri Rollins, RN [place] Nurse Slitter Scorer 03/07/21 05/23/23 Werner Swift MD #2 [place] [address] Consulting Physician Pulmonary Disease 01/30/22 Yasmin Restrepo MD [address] [phone] Consulting Physician Endocrinology 07/20/24 documented as of this encounter
--- OUTSIDE RECORDS SUMMARY | 2024-08-16 19:29 | XMS_ITS | Encounter Summary ---
Author Organization [facility] Address [address] [place] [address] Phone Care Team Providers Care Switch Foreman Name Role Phone Quang Locke DO Unavailable [phone] Keith Craft MD Primary Care Provider [phone] Bri Rollins RN Unavailable Unavailable Silvio Schulte MD Unavailable [phone] Bri Rollins RN Unavailable Unavailable Werner Swift MD Unavailable Liz Capellan DO Primary Care Provider [phone] Yasmin Restrepo MD Unavailable Reason for Visit * Reason Comments Medication Refill Encounter Details Date Type Department Care Team (Late st Contact Info) Description 02/05/2021 Refill [facility] - Family Medicine [facility] #2 [place] [address] Keith Craft MD #1 [place] [address] Medication Refill Social History Tobacco Use Types [...] neuropathy, with long-term current use of insulin(HCC) [facility] Family [facility] Brie Castano PAC 3 weeks ago Chronic low back pain, unspecified back pain laterality, unspecified whether sciatica present [facility] Keith Jenkins MD 3 months ago Pneumonia of right upper lobe due to infectious organism [facility] Keith Lemus MD 4 months ago Hypoglycemia [facility] Keith Lemus MD 8 months ago Mixed hyperlipidemia [facility] Keith Lemus MD Upcoming Appointments Future Appointments Tomorrow Keith Craft MD [facility] KRAFT MILL OPERATOR - Recent and Past Visits Recent Visits Date Type Provider Dept 02/03/21 Office Visit Cira Brie Palma[facility] NICO[facility] 01/12/21 Office Visit Keith Craft, [facility] 10/12/20 Office Visit Keith Craft MD [facility] 10/04/20 Office Visit Keith Craft, [facility] 06/07/20 Office Visit Keith Craft MD [facility] 04/25/20 Office Visit Keith Craft MD [facility] 02/02/20 Office Visit Keith [facility] Showing recent visits within past 460 days with a meds authorizing provider and meeting all other requirements Future Appointments Date Type Provider Dept 02/07/21 Appointment Keith Craft MD [facility] 04/14/21 Appointment Keith Craft MD [facility] Showing future appointments within next 90 days with a meds authorizing provider and meeting all other requirements documented in this encounter Plan of Treatment Upcoming Encounters Date Type Department Care Team (Late st Contact Info) Description 08/27/2024 1:15 PM CDT Office Visit [facility] Medical [facility] - Endocrinology [facility] #2 [place] [address] Yasmin Restrepo MD #[address] [address] 09/02/2024 2:00 PM CDT Appointment [facility] Respiratory Therapy 1 [facility] [place] [address] Werner Swift MD #2 [place] [address] Discharge Disposition: Discharged to home or Selfcare 10/08/2024 1:40 PM CDT Office Visit [facility] Medical Group - Family Medicine [facility] #2 [place] [address] Lzi Capellan, DO 2 [facility] [address] [address] 11/16/2024 1:00 PM CDT Office Visit [facility] - Pulmonology & Sleep Medicine [facility] #2 [place] [address] Werner Swift MD #2 [place] [address] documented as of this encounter Visit Diagnoses Not on filedocumented in this encounter Additional Health Concerns Infection Onset Date Last Indicated Resolved Time COVID - 19 07/23/2021 07/23/2021 07/24/2021 6:31 AM FINGER BUFFS ASSEMBLER COVID - 19 10/19/2021 10/19/2021 10/20/2021 7:45 AM CDT Respiratory Rule Out - RPA 10/19/2021 10/19/2021 0 10/20/2021 2:10 PM CDT Stenotrophomonas maltophilia Comment:Must have a follow up respiratory sample to remove isolation flag. 10/20/2021 10/20/2021 COVID - 19 04/20/2022 04/20/2022 04/30/2022 12:1 8 AM FINGER BUFFS ASSEMBLER COVID - 19 07/18/2022 07/18/2022 07/28/2022 12:1 6 AM FINGER BUFFS ASSEMBLER COVID - 19 08/21/2022 08/21/2022 08/22/2022 8:31 AM CDT Respiratory Rule Out - RPA 08/21/2022 08/21/2022 0 08/22/2022 3:21 PM CDT COVID - 19 04/18/2023 04/18/2023 04/28/2023 12:1 6 AM FINGER BUFFS ASSEMBLER COVID - 19 07/13/2023 07/13/2023 07/23/2023 12:1 6 AM FINGER BUFFS ASSEMBLER Respiratory Rule Out - RPA 03/17/2024 03/17/2024 1 3:36 PM CDT COVID - 19 04/27/2024 04/27/2024 04/27/2024 2:19 PM FINGER BUFFS ASSEMBLER Respiratory Rule-Out 07/24/2024 07/24/2024 025 2:29 PM FINGER BUFFS ASSEMBLER COVID - 19 07/24/2024 07/24/2024 07/24/2024 2:29 PM FINGER BUFFS ASSEMBLER Assessment Noted Time PHQ-9 Depression Total Score: 0 02/04/20 11:12 AM CDT documented as of this encounter Care Teams Switch Foreman Relationship Specialty Start Date End Date Keith Craft MD PCP - General Family Medicine 01/14/19 12/26/23 Liz Capellan DO [address] [id number] PCP - General Family Medicine 12/27/23 Quang Locke DO Gastroenterology 01/18/16 Bri Rollins RN [place] Sales Exec 03/07/21 05/22/23 [place] [address] [address] 05/25/21 Bri Rollins RN [place] Nurse Sales Exec 03/07/21 05/23/23 Werner Swift MD #2 [place] [phone] Consulting Physician Pulmonary Disease 01/30/22 Yasmin Restrepo MD #[address] [phone] Consulting Physician Endocrinology 07/20/24 documented as of this encounter
--- OUTSIDE RECORDS SUMMARY | 2024-08-16 19:29 | XMS_ITS | Encounter Summary ---
Author Organization [facility] Address [address] [place] [address] Phone Care Team Providers Care Market Analyst Name Role Phone Quang Locke DO Unavailable [phone] Keith Craft MD Primary Care Provider [phone] Bri Rollins RN Unavailable Unavailable Silvio Schulte MD Unavailable [phone] Bri Rollins RN Unavailable Unavailable Werner Swift MD Unavailable Liz Capellan DO Primary Care Provider [phone] Yasmin Restrepo MD Unavailable Reason for Visit * Reason Comments Medication Refill Encounter Details Date Type Department Care Team (Late st Contact Info) Description 01/31/2022 Refill [facility] #2 [place] [address] Keith Craft MD #1 [place] [address] Medication Refill Social History Tobacco Use Types [...] [place] 07/31/21 [facility]21 Office Visit Marcin Anderson, SUPERVISOR METALIZING, REGULATORY AFFAIRS ANALYST [facility] 05/05/21 Office Visit Brie Denis, PAC [facility] 04/14/21 Office Visit Keith Craft MD [facility] 03/23/21 Office Visit Keith Craft MD [facility] Showing recent visits within past 365 days and meeting all other requirements Future Appointments Date Type Provider Dept 03/09/22 Appointment Keith Craft MD [facility] Showing future appointments within next 90 days and meeting all other requirements documented in this encounter Plan of Treatment Upcoming Encounters Date Type Department Care Team (Late st Contact Info) Description 08/27/2024 1:15 PM CDT Office Visit [facility] - Endocrinology - [place] #2 [place] [address] Yasmin Restrepo MD #[address] [address] 09/02/2024 2:00 PM CDT Appointment [facility] Respiratory Therapy 1 [place] [address] Werner Swift MD #2 [place] [address] Discharge Disposition: Discharged to home or Selfcare 10/08/2024 1:40 PM CDT Office Visit [facility] - Family Medicine [facility] #2 [place] [address] Liz Capellan, DO [address] [address] 11/16/2024 1:00 PM CDT Office Visit [facility] - Pulmonology & Sleep Medicine [facility] #2 [place] [address] Werner Swift MD [address] [place] [address] documented as of this encounter Goals Goal [...] Zones/Action plan education. I will notify my Boiler House Operator if my symptoms fall in [...] 19 04/20/2022 04/20/2022 04/30/2022 12:1 8 AM FOX RAISER COVID - 19 07/18/2022 07/18/2022 07/28/2022 12:1 6 AM FOX RAISER COVID - 19 08/21/2022 08/21/2022 08/22/2022 8:31 AM CDT Respiratory Rule Out - RPA 08/21/2022 08/21/2022 0 08/22/2022 3:21 PM CDT COVID - 19 04/18/2023 04/18/2023 04/28/2023 12:1 6 AM FOX RAISER COVID - 19 07/13/2023 07/13/2023 07/23/2023 12:1 6 AM FOX RAISER Respiratory Rule Out - RPA 03/17/2024 03/17/2024 1 3:36 PM CDT COVID - 19 04/27/2024 04/27/2024 04/27/2024 2:19 PM FOX RAISER Respiratory Rule-Out 07/24/2024 07/24/2024 025 2:29 PM FOX RAISER COVID - 19 07/24/2024 07/24/2024 07/24/2024 2:29 PM FOX RAISER Assessment Noted Time PHQ-9 Depression Total Score: 1 03/07/20 21 10:29 AM CDT documented as of this encounter Care Teams Market Analyst Relationship Specialty Start Date End Date Keith Craft MD PCP - General Family Medicine 01/14/19 12/26/23 Liz Capellan DO [address] [address] PCP - General Family Medicine 12/27/23 Quang Locke DO Gastroenterology 01/18/16 Bri Rollins RN [place] Boiler House Operator 03/07/21 05/22/23 [place] [address] [address] 05/25/21 Bri Rollins, RN [place] Nurse Boiler House Operator 03/07/21 05/23/23 Werner Swift MD #2 [place] [address] Consulting Physician Pulmonary Disease 01/30/22 Yasmin Restrepo MD #[address] [address] Consulting Physician Endocrinology 07/20/24 documented as of this encounter
--- OUTSIDE RECORDS SUMMARY | 2024-08-16 19:29 | XMS_ITS | Encounter Summary ---
Author Organization [facility] Address [address] [place] [address] Phone Care Team Providers Care Junior Network Engineer Name Role Phone Quang Locke DO Unavailable [phone] Keith Craft MD Primary Care Provider [phone] Bri Rollins RN Unavailable Unavailable Silvio Schulte MD Unavailable [phone] Bri Rollins RN Unavailable Unavailable Werner Swift MD Unavailable Liz Capellan DO Primary Care Provider [phone] Yasmin Restrepo MD Unavailable Reason for Visit * Reason Comments Medication Refill Encounter Details Date Type Department Care Team (Late st Contact Info) Description 09/28/2020 [facility] [address] [place] [address] Keith Craft MD #1 [place] [address] Medication Refill Social History Tobacco Use Types [...] Outpatient Visits 3 months ago Mixed hyperlipidemia [facility] - Keith Jenkins MD 5 months ago Pneumonia of right upper lobe due to infectious organism [facility] Keith Lemus MD 8 months ago Acute non-recurrent maxillary sinusitis [facility] Keith Lemus MD 11 months ago Chronic prescription opiate use [facility] - Keith Jenkins MD 1 year ago 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 [facility] Keith Lemus MD Upcoming Appointments Future Appointments In 5 days Keith Craft MD [facility] - YULIA [facility] ELECTRONICS ENGINEERING TECHNICIAN - Recent and Past Visits Recent Visits Date Type Provider Dept 06/07/20 Office Visit Keith [facility] 04/[facility]/20 Office Visit Keith Craft MD [...] Outpatient Visits 3 months ago Mixed hyperlipidemia [facility] Keith Lemus MD 5 months ago Pneumonia of right upper lobe due to infectious organism [facility] Keith Lemus MD 8 months ago Acute non-recurrent maxillary sinusitis [facility] Kieth Lemus MD 11 months ago Chronic prescription opiate use [facility] Keith Lemus MD 1 year ago 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 [facility] Keith Lemus MD Upcoming Appointments Future Appointments In 5 days Keith Craft MD [facility] Maximiliano Tesfaye [facility] ELECTRONICS ENGINEERING TECHNICIAN - Recent and Past Visits Recent Visits Date Type Provider Dept 06/07/20 Office Visit Keith Craft MD [facility] 04/25/20 Office Visit Keith Craft MD [facility] 02/02/20 Office Visit Keith Craft MD [facility] 11/02/19 Office Visit Keith Craft MD [facility] 07/27/19 Office Visit Keith Craft MD [facility] Showing recent visits within past 460 [...] Description 08/27/2024 1:15 PM CDT Office Visit [facility] - Endocrinology - [place] #2 [place] [address] Yasmin Restrepo MD #[address] [phone] 09/02/2024 2:00 PM CDT Appointment [facility] Respiratory Therapy 1 [place] [address] Werner Swift MD #2 [place] [address] Discharge Disposition: Discharged to home or Selfcare 10/08/2024 1:40 PM CDT Office Visit [facility] Medical [facility] - Family Medicine - [place] #2 [facility] [address] Liz Capellan, DO [address] [address] 11/16/2024 1:00 PM CDT [facility] - Pulmonology & [facility] Medicine - [place] #2 [place] [address] Werner Swift MD #2 [place] [address] documented as of this encounter Visit Diagnoses Not on filedocumented in this encounter Additional Health Concerns Infection Onset Date Last Indicated Resolved Time COVID - 19 01/25/2021 01/25/2021 01/31/2021 8:10 AM CDT Respiratory Rule Out - RPA 01/30/2021 01/30/2021 0 02/01/2021 12:45 AM CDT COVID - 19 07/23/2021 07/23/2021 07/24/2021 6:31 AM PLASTIC MAKER COVID - 19 10/19/2021 10/19/2021 10/20/2021 7:45 AM CDT Respiratory Rule Out - RPA 10/19/2021 10/19/2021 0 10/20/2021 2:10 PM CDT Stenotrophomonas maltophilia Comment:Must have a follow up respiratory sample to remove isolation flag. 10/20/2021 10/20/2021 COVID - 19 04/20/2022 04/20/2022 04/30/2022 12:1 8 AM PLASTIC MAKER COVID - 19 07/18/2022 07/18/2022 07/28/2022 12:1 6 AM PLASTIC MAKER COVID - 19 08/21/2022 08/21/2022 08/22/2022 8:31 AM CDT Respiratory Rule Out - RPA 08/21/2022 08/21/2022 0 08/22/2022 3:21 PM CDT COVID - 19 04/18/2023 04/18/2023 04/28/2023 12:1 6 AM PLASTIC MAKER COVID - 19 07/13/2023 07/13/2023 07/23/2023 12:1 6 AM PLASTIC MAKER Respiratory Rule Out - RPA 03/17/2024 03/17/2024 1 3:36 PM CDT COVID - 19 04/27/2024 04/27/2024 04/27/2024 2:19 PM PLASTIC MAKER Respiratory Rule-Out 07/24/2024 07/24/2024 2:29 PM PLASTIC MAKER COVID - 19 07/24/2024 07/24/2024 07/24/2024 2:29 PM PLASTIC MAKER Assessment Noted Time PHQ-9 Depression Total Score: 2 06/07/19 21 2:34 PM PLASTIC MAKER documented as of this encounter Care Teams Junior Network Engineer Relationship Specialty Start Date End Date Keith Craft MD PCP - General Family Medicine 01/14/19 12/26/23 Liz Capellan DO [address] [address] PCP - General Family Medicine 12/27/23 Quang Locke DO Gastroenterology 01/18/16 Bri Rollins, RN [place] Catalyst Supervisor 03/07/21 05/22/23 [place] [id number] [address] 05/25/21 Bri Rollins RN [place] Nurse Catalyst Supervisor 03/07/21 05/23/23 Werner Swift MD #2 [place] [address] Consulting Physician Pulmonary Disease 01/30/22 Yasmin Restrepo MD #[address] [address] Consulting Physician Endocrinology 07/20/24 documented as of this encounter
--- OUTSIDE RECORDS SUMMARY | 2024-08-16 19:29 | XMS_ITS | Encounter Summary ---
Author Organization [facility] Address [address] [place] [address] Phone Care Team Providers Care Ear Nose Throat Surgeon Name Role Phone Quang Locke DO Unavailable [phone] Keith Craft MD Primary Care Provider [phone] Silvio Schulte MD Unavailable [phone] Werner Swift MD Unavailable Liz Capellan DO Primary Care Provider [phone] Yasmin Restrepo MD Unavailable Reason for Visit * Reason Comments Medication Refill Encounter Details Date Type Department Care Team (Late st Contact Info) Description 07/17/2023 [facility]ill [facility] [address] [place] [address] Keith Craft MD #1 [place] [address] Medication Refill Social History Tobacco Use Types Packs/Day Years Used Date Smoking Tobacco: Former Cigarettes 2 50 1 - 03/16/2018 Smokeless Tobacco: Never Comments:Still uses nictoine patches and gum Alcohol Use Standard Drinks/Week Comments No 0 (1 standard drink = 0.6 oz pur e alcohol) [facility] Utilities Answer Date Recorded In the past [...] often do you attend chur ch or orthodoxy services? Never 07/13/2023 Do you belong to any clubs o r organizations such as restorationist groups, unions, fraternal or athletic groups, or [...] Score - Questions 1-9 0 /0 08/2021 [facility] [place] of Occupat ional Health - Occupational Stress [...] in a detention (including now)? No 07/13/2023 Education Answer Date [...] Kelin Nance RN - 07/17/2023 1:[address] BAILIFF OR SHERIFF No protocol information Per nursing clinical judgement, provider to review and approve the medication(s) order(s) if appropriate. Requested Prescriptions Pending Prescriptions Disp Refills Basaglar KwikPen 100 UNIT/ML Solution Pen-injector [Pharmacy Med Name: BASAGLAR KWIKPEN 100UNIT SOLN PEN-INJ] 45 mL 4 Sig: INJECT 15 UNITS SUBCUTANEOUS DAILY There is no refill protocol information for this order T BAILIFF OR SHERIFF documented in this encounter Plan of Treatment Upcoming Encounters Date Type Department Care Team (Late st Contact Info) Description 08/27/2024 1:15 PM CDT Office Visit [facility] Endocrinology - [place] #2 [place] [address] Yasmin Restrepo MD #2 [facility] [address] [place] [address] 09/02/2024 2:00 PM CDT Appointment [facility] Respiratory Therapy 1 [place] [address] Werner Swift MD #2 [place] [address] Discharge Disposition: Discharged to home or Selfcare 10/08/2024 1:40 PM CDT Office Visit [facility] Family Medicine [facility] #2 [place] [address] Liz Capellan, DO [address] [address] 11/16/2024 1:00 PM CDT Office Visit [facility] - Pulmonology & Sleep Medicine [facility] #2 [place] [address] Werner Swift MD #2 [place] [address] documented as of this encounter Goals Goal [...] plan education. I will notify my Firer Bisque Kiln if my symptoms fall in the y [...] 19 07/13/2023 07/13/2023 07/23/2023 12:[address] BAILIFF OR SHERIFF Respiratory Rule Out - RPA 03/17/2024 03/17/2024 1 3:36 PM CDT COVID - 19 04/27/2024 04/27/2024 04/27/2024 2:[address] BAILIFF OR SHERIFF Respiratory Rule-Out 07/24/2024 07/24/2024 025 2:[address] BAILIFF OR SHERIFF COVID - 19 07/24/2024 07/24/2024 07/24/2024 2:[address] BAILIFF OR SHERIFF Assessment Noted Time PHQ-9 Depression Total Score: 1 03/07/20 10:29 AM CDT documented as of this encounter Care Teams Ear Nose Throat Surgeon Relationship Specialty Start Date End Date Keith Craft MD PCP - General Family Medicine 01/14/19 12/26/23 Liz Capellan DO 2 [facility] [address] [place], [place] [phone] PCP - General Family Medicine 12/27/23 Quang Locke DO Gastroenterology 01/18/16 [place] [address] [address] 05/25/21 Werner Swift MD #2 [place] [address] Consulting Physician Pulmonary Disease 01/30/22 Yasmin Restrepo MD #[address] [phone] Consulting Physician Endocrinology 07/20/24 documented as of this encounter
--- OUTSIDE RECORDS SUMMARY | 2024-08-16 19:29 | XMS_ITS | Encounter Summary ---
Author Organization [facility] Address [address] [place] [address] Phone Care Team Providers Care Laundry Machine Operator Name Role Phone Quang Locke DO Unavailable [phone] Keith Craft MD Primary Care Provider [phone] Bri Rollins RN Unavailable Unavailable Silvio Schulte MD Unavailable [phone] Bri Rollins RN Unavailable Unavailable Werner Swift MD Unavailable Liz Capellan DO Primary Care Provider [phone] Yasmin Restrepo MD Unavailable Reason for Visit * Reason Comments Medication Refill Encounter Details Date Type Department Care Team (Late st Contact Info) Description 09/22/2020 Refill [facility] - Family Medicine [facility] #2 [place] [address] Keith Craft MD #1 [place] [address] Medication Refill Social History Tobacco Use Types [...] Description 08/27/2024 1:15 PM CDT Office Visit [facility] - Endocrinology [facility] #2 [place] [address] Yasmin Restrepo MD #[address] [address] 09/02/2024 2:00 PM CDT [facility] 1 [place] [address] Werner Swift MD #2 [place] [address] Discharge Disposition: Discharged to home or Selfcare 10/08/2024 1:40 PM CDT Office Visit [facility] - Family Medicine [facility] #2 [place] [address] Liz Capellan, DO [address] [address] 11/16/2024 1:00 PM CDT [facility] #[address] [place] [address] Werner Swift MD #2 [place] [address] documented as of this encounter Visit Diagnoses Diagnosis Anxiety and depression Dysthymic disorder documented in this encounter Additional Health Concerns Infection Onset Date Last Indicated Resolved Time COVID - 19 01/25/2021 01/25/2021 01/31/2021 8:10 AM CDT Respiratory Rule Out - RPA 01/30/2021 01/30/2021 0 02/01/2021 12:45 AM CDT COVID - 19 07/23/2021 07/23/2021 07/24/2021 6:31 AM BUSINESS TEAM LEADER COVID - 19 10/19/2021 10/19/2021 10/20/2021 7:45 AM CDT Respiratory Rule Out - RPA 10/19/2021 10/19/2021 0 10/20/2021 2:10 PM CDT Stenotrophomonas maltophilia Comment:Must have a follow up respiratory sample to remove isolation flag. 10/20/2021 10/20/2021 COVID - 19 04/20/2022 04/20/2022 04/30/2022 12:1 8 AM BUSINESS TEAM LEADER COVID - 19 07/18/2022 07/18/2022 07/28/2022 12:1 6 AM BUSINESS TEAM LEADER COVID - 19 08/21/2022 08/21/2022 08/22/2022 8:31 AM CDT Respiratory Rule Out - RPA 08/21/2022 08/21/2022 0 08/22/2022 3:21 PM CDT COVID - 19 04/18/2023 04/18/2023 04/28/2023 12:1 6 AM BUSINESS TEAM LEADER COVID - 19 07/13/2023 07/13/2023 07/23/2023 12:1 6 AM BUSINESS TEAM LEADER Respiratory Rule Out - RPA 03/17/2024 03/17/2024 1 3:36 PM CDT COVID - 19 04/27/2024 04/27/2024 04/27/2024 2:19 PM BUSINESS TEAM LEADER Respiratory Rule-Out 07/24/2024 07/24/2024 025 2:29 PM BUSINESS TEAM LEADER COVID - 19 07/24/2024 07/24/2024 07/24/2024 2:29 PM BUSINESS TEAM LEADER Assessment Noted Time PHQ-9 Depression Total Score: 2 06/07/19 2:34 PM BUSINESS TEAM LEADER documented as of this encounter Care Teams Laundry Machine Operator Relationship Specialty Start Date End Date Keith Craft MD PCP - General Family Medicine 01/14/19 12/26/23 Liz Capellan DO [address] [address] PCP - General Family Medicine 12/27/23 Quang Locke DO Gastroenterology 01/18/16 Bri Rollins, RN [place] Soloist Dancer 03/07/21 05/22/23 [place] [address] [address] 05/25/21 Bri Rollins, RN [place] Nurse Soloist Dancer 03/07/21 05/23/23 Werner Swift MD #2 [place] [address] Consulting Physician Pulmonary Disease 01/30/22 Yasmin Restrepo MD #[address] [address] Consulting Physician Endocrinology 07/20/24 documented as of this encounter
--- OUTSIDE RECORDS SUMMARY | 2024-08-16 19:29 | XMS_ITS | Encounter Summary ---
Author Organization [facility] Address [address] [place] [address] Phone Care Team Providers Care Legal Examiner Name Role Phone Quang Locke DO Unavailable [phone] Keith Craft MD Primary Care Provider [phone] Bri Rollins RN Unavailable Unavailable Silvio Schulte MD Unavailable [phone] Bri Rollins RN Unavailable Unavailable Werner Swift MD Unavailable Liz Capellan DO Primary Care Provider [phone] Yasmin Restrepo MD Unavailable Reason for Visit * Reason Comments Medication Refill Encounter Details Date Type Department Care Team (Late st Contact Info) Description 01/22/2022 Refill [facility] [address] [place] [address] Keith Craft MD #1 [place] [address] Medication Refill Social History Tobacco Use Types [...] Visit [facility] - Endocrinology - [place] #2 [facility] [place] [address] Yasmin Restrepo MD [address] [place] [address] 09/02/2024 2:00 PM CDT [facility] [place] [address] Werner Swift MD #2 [place] [address] Discharge Disposition: Discharged to home or Selfcare 10/08/2024 1:40 PM CDT Office Visit [facility] Medical [facility] - Family Medicine - [place] #2 [place] [address] Liz Capellan, DO 2 [facility]. [address] [place] [address] 11/16/2024 1:00 PM CDT Office Visit [facility] - Pulmonology & Sleep Medicine - [place] #2 [place] [address] Werner Swift MD #2 [place] [address] documented as of this encounter Goals Goal [...] Zones/Action plan education. I will notify my Malthouse Laborer if my symptoms fall in the y ellow zone . I will consider receiving an influenza and pneumonia vaccination, if applicable. -I will call the office if I experience any symptoms listed above to discuss at home management options. documented as of this encounter Visit Diagnoses Diagnosis Type 2 diabetes mellitus with diabetic neuropathy, with long-term current use of insulin ([facility]) documented in this encounter Additional Health Concerns Infection Onset Date Last Indicated Resolved Time Stenotrophomonas maltophilia Comment:Must have a follow up respiratory sample to remove isolation flag. 10/20/2021 10/20/2021 COVID - 19 04/20/2022 04/20/2022 04/30/2022 12:1 8 AM MERCHANDISING LEAD COVID - 19 07/18/2022 07/18/2022 07/28/2022 12:1 6 AM MERCHANDISING LEAD COVID - 19 08/21/2022 08/21/2022 08/22/2022 8:31 AM CDT Respiratory Rule Out - RPA 08/21/2022 08/21/2022 0 08/22/2022 3:21 PM CDT COVID - 19 04/18/2023 04/18/2023 04/28/2023 12:1 6 AM MERCHANDISING LEAD COVID - 19 07/13/2023 07/13/2023 07/23/2023 12:1 6 AM MERCHANDISING LEAD Respiratory Rule Out - RPA 03/17/2024 03/17/2024 1 3:36 PM CDT COVID - 19 04/27/2024 04/27/2024 04/27/2024 2:19 PM MERCHANDISING LEAD Respiratory Rule-Out 07/24/2024 07/24/2024 025 2:29 PM MERCHANDISING LEAD COVID - 19 07/24/2024 07/24/2024 07/24/2024 2:29 PM MERCHANDISING LEAD Assessment Noted Time PHQ-9 Depression Total Score: 1 03/07/20 21 10:29 AM CDT documented as of this encounter Care Teams Legal Examiner Relationship Specialty Start Date End Date Keith Craft MD PCP - General Family Medicine 01/14/19 12/26/23 Liz Capellan DO 2 [facility] [address] [place], [place] [address] PCP - General Family Medicine 12/27/23 Quang Locke DO Gastroenterology 01/18/16 Bri Rollins, RN [place] Malthouse Laborer 03/07/21 05/22/23 [place] [address] [address] 05/25/21 Bri Rollins, RN [place] Nurse Malthouse Laborer 03/07/21 05/23/23 Werner Swift MD #2 [place] [address] Consulting Physician Pulmonary Disease 01/30/22 Yasmin Restrepo MD [address] [address] Consulting Physician Endocrinology 07/20/24 documented as of this encounter
--- OUTSIDE RECORDS SUMMARY | 2024-08-16 19:29 | XMS_ITS | Encounter Summary ---
Author Organization [facility] Address [address] [place] [address] Phone Care Team Providers Care Applications Support Analyst Name Role Phone Quang Locke DO Unavailable [phone] Keith Craft MD Primary Care Provider [phone] Silvio Schulte MD Unavailable [phone] Werner Swift MD Unavailable Liz Capellan DO Primary Care Provider [phone] Yasmin Restrepo MD Unavailable Reason for Visit * Reason Comments Medication Refill Encounter Details Date Type Department Care Team (Late st Contact Info) Description 08/05/2023 Refill [facility] - Family Medicine [facility] #2 [place] [address] Keith Craft MD #1 [place] [address] Medication Refill Social History Tobacco Use Types Packs/Day Years Used Date Smoking Tobacco: Former Cigarettes 2 50 1 - 03/16/2018 Smokeless Tobacco: Never Comments:Still uses nictoine patches and gum Alcohol Use Standard Drinks/Week Comments No 0 (1 standard drink = 0.6 oz pur e alcohol) [facility] Utilities Answer Date Recorded In the [...] often do you attend chur ch or quaker services? Never 07/13/2023 Do you belong to any clubs o r organizations such as latter-day groups, unions, fraternal or athletic groups, or [...] Score - Questions 1-9 0 /0 08/2021 [facility] [place] of Occupat ional Health - Occupational Stress [...] Telephone Encounter - Gloria Cornejo RN - 08/05/2023 3:31 PM CDT [...] Status 12/17/2022 No Final ergocalciferol (VITAMIN D) 94647 UNIT Capsule [Pharmacy Med Name: VITAMIN D [id number] CAPSULE] 12 Capsule 0 Sig: TAKE ONE [...] Appointments Date Type Provider Dept 08/15/23 Appointment Keiht Craft MD [facility] Showing future appointments [...] Office Visit [facility] - Endocrinology [facility] #2 [place] [address] Yasmin Restrepo MD #[address] [address] 09/02/2024 2:00 PM CDT [facility] 1 [place] [address] Werner Swift MD #2 [place] [address] Discharge Disposition: Discharged to home or Selfcare 10/08/2024 1:40 PM CDT Office Visit [facility] Medical [facility] - Family Medicine - [place] #2 [place] [address] Liz Capellan, DO 2 [facility]. [address] [place] [address] 11/16/2024 1:00 PM CDT Office Visit [facility] - Pulmonology & Sleep Medicine - [place] #2 [place] [address] Werner Swift MD #2 [place] [address] documented as of this encounter Goals Goal [...] Zones/Action plan education. I will notify my Terrazzo Supervisor if my symptoms fall in the [...] - 19 04/27/2024 04/27/2024 04/27/2024 2:19 PM CLAIMS ADJUSTER SUPERVISOR Respiratory Rule-Out 07/24/2024 07/24/2024 025 2:29 PM CLAIMS ADJUSTER SUPERVISOR COVID - 19 07/24/2024 07/24/2024 07/24/2024 2:29 PM CLAIMS ADJUSTER SUPERVISOR Assessment Noted Time PHQ-9 Depression Total Score: 1 03/07/20 21 10:29 AM CDT documented as of this encounter Care Teams Applications Support Analyst Relationship Specialty Start Date End Date Keith Craft MD PCP - General Family Medicine 01/14/19 12/26/23 Liz Capellan DO [address] [address] PCP - General Family Medicine 12/27/23 Quang Locke DO Gastroenterology 01/18/16 [place] [address] [address] 05/25/21 Werner Swift MD #2 [place] [address] Consulting Physician Pulmonary Disease 01/30/22 Yasmin Restrepo MD #[address] [address] Consulting Physician Endocrinology 07/20/24 documented as of this encounter
--- OUTSIDE RECORDS SUMMARY | 2024-08-16 19:29 | XMS_ITS | Encounter Summary ---
Author Organization [facility] Address [address] [place] [address] Phone Care Team Providers Care Men'S Designer Name Role Phone Sisivandana Quang Chacon DO Unavailable [phone] Silvio Schulte MD Unavailable [phone] Werner Swift MD Unavailable Liz Capellan DO Primary Care Provider [phone] Yasmin Restrepo MD Unavailable Reason for Referral * Radiology Services (Routine) - Open Specialty Diagnoses / Procedures Referred By Lubna chacon Referred To Contact Radiology Diagnoses Multiple lung nodules on CT Procedures CT CHEST W/O CONTRAST Werner Swift MD #2 [place] [address] Phone: tel: fax: Referral ID Status Reason Start Date Expiration Date Visits Re quested Visits Authorized [id number] Open 07/31/2024 1 1 RITY TRAINER Encounter Details Date Type Department Care Team (Late st Contact Info) Description 07/30/2024 Results Follow-Up [facility] - Pulmonology & Sleep Medicine [facility] [address] [place] [address] Werner Swift MD [address] [place] [address] on [address] (Primary Dx) Social History Tobacco Use Types Packs/Day Years Used Date Smoking Tobacco: Former Cigarettes 2 50 1 - 03/16/2018 Smokeless Tobacco: Never Comments:Still uses nictoine patches and gum Alcohol Use Standard Drinks/Week Comments No 0 (1 standard drink = 0.6 oz pur e alcohol) [facility] Utilities Answer Date Recorded In the past 12 months has e electric, gas, oil, or water company threatened to shut off services in your home? No 07/23/2024 Social Connection and Isolat ion Panel [NHANES] Answer Date Recorded In a typical week, how many times do you talk on the phone with family, friends, or neighbors? More than three times a week 07/23/2024 How often do you get togethe r with friends or relatives? More than three times a week 07/23/2024 How often do you attend chur ch or taoist services? Patient declined 07/23/2024 Do you belong to any clubs o r organizations such as rastafari groups, unions, fraternal or athletic groups, or school groups? Patient declined 07/23/2024 How often do you attend meet ings of the clubs or organizations you belong to? Patient declined 07/23/2024 Are you , , di vorced, , never , or living with a partner? 07/23/2024 AUDIT-C Answer Date Recorded Q1: How often do you have a drink containing alc ohol? Patient declined 07/23/2024 Q2: How many drinks containi ng alcohol do you have on a typical day when you are drinking? Patient declined 07/23/2024 Q3: How often do you have si x or more drinks on one occasion? Patient declined 07/23/2024 Overall Financial Resource Strain (CARDIA) Answe r Date Recorded How hard is it for you to pa y for the very basics like food, housing, medical care, and heating? Not hard at all 07/23/2024 PHQ-2 Answer Date Recorded Total Score - Questions 1-9 0 06/27 [facility] - Occupational Stress Questionnaire Answer Date Recorded Do you feel stress - tense, restless, nervous, or anxious, or unable to sleep at night because your mind is troubled all the time - these days? Only a little 07/23/2024 Exercise Vital Sign Answer Date Recorde d On average, how many days pe r week do you engage in moderate to strenuous exercise (like a brisk walk)? 3 days 07/23/2024 On average, how many minutes do you engage in exercise at this level? 10 min 07/23/2024 Hunger Vital Sign Answer Date Recorded Within the past 12 months, y ou worried that your food would run out before you got the money to buy more. Patient declined Within the past 12 months, t he food you bought just didn't last and you didn't have money to get more. Patient declined PRAPARE - Transportation Answer Date Re corded In the past 12 months, has l ack of transportation kept you from medical appointments or from getting medications? No 06/28 In the past 12 months, has l ack of transportation kept you from meetings, work, or from getting things needed for daily living? No 07/23/2024 Housing Stability Vital Sign Answer Richar e [...] in a assisted (including now)? No 07/13/2023 Housing Stability Vital Sign Answer Richar e Recorded In the last 12 months, was t here a time when you were not able to pay the mortgage or rent on time? No 07/23/2024 In the past 12 months, how m any times have you moved where you were living? 1 07/23/2024 At any time in the past 12 m [facility], were you homeless or living in a assisted (including now)? No 07/23/2024 Education Answer Date Recorded What is the [...] Visit [facility] - [place] #2 [place] [address] Yasmin Restrepo MD #2 [facility] [address] [place] [address] 09/02/2024 2:00 PM CDT [facility]ment [facility] 1 [place] [address] Werner Swift MD #2 [place] [phone] Discharge Disposition: Discharged to home or Selfcare 10/08/2024 1:40 PM CDT Office Visit [facility] - Family Medicine - [place] #2 [facility] [place] [address] Liz Capellan, DO [address] [facility] [address] [place] [address] 11/16/2024 1:00 PM CDT Office Visit [facility] - Pulmonology & Sleep Medicine - [place] #2 [place] [phone] Werner Swift MD #2 [place] [address] Scheduled Orders Name Type Priority Associated Diagnoses Orde r Schedule CT CHEST W/O CONTRAST Imaging Routine Multiple lung nodules on CT Expected: 01/31/2025, Expires: 07/31/2025 documented as of this encounter Goals Goal [...] Zones/Action plan education. I will notify my Polisher Brass if my symptoms fall in the y ellow zone . I will consider receiving an influenza and pneumonia vaccination, if applicable. -I will call the office if I experience any symptoms listed above to discuss at home management options. documented as of this encounter Visit Diagnoses Diagnosis Multiple lung nodules on CT- Primary documented in this encounter Additional Health Concerns Infection Onset Date Last Indicated Resolved Time Stenotrophomonas maltophilia Comment:Must have a follow up respiratory sample to remove isolation flag. 10/20/2021 10/20/2021 Assessment Noted Time PHQ-9 Depression Total Score: 0 07/13/19 25 1:20 PM SECURITY TRAINER documented as of this encounter Care Teams Men'S Designer Relationship Specialty Start Date End Date Liz Capellan DO [address] [facility] [facility] [address] [address] PCP - General Family Medicine 12/27/23 Quang Locke DO Gastroenterology 01/18/16 [place] [id number] [address] 05/25/21 Werner Swift MD #[address] [place] [address] Consulting Physician Pulmonary Disease 01/30/22 Yasmin Restrepo MD [address] [address] Consulting Physician Endocrinology 07/20/24 documented as of this encounter
--- OUTSIDE RECORDS SUMMARY | 2024-08-16 19:29 | XMS_ITS | Encounter Summary ---
Author Organization [facility] Address [address] [place] [address] Phone Care Team Providers Care Physician Non Invasive Cardiologist Name Role Phone Quang Locke DO Unavailable [phone] Keith Craft MD Primary Care Provider [phone] Bri Rollins RN Unavailable Unavailable Silvio Schulte MD Unavailable [phone] Bri Rollins RN Unavailable Unavailable Werner Swift MD Unavailable Liz Capellan DO Primary Care Provider [phone] Yasmin Restrepo MD Unavailable Reason for Visit * Reason Comments Medication Refill Encounter Details Date Type Department Care Team (Late st Contact Info) Description 11/21/2021 Refill [facility] - Family Medicine [facility] #2 [place] [address] Keith Craft MD #1 [place] [address] Medication Refill Social History Tobacco Use Types [...] Dept 11/03/21 Office Visit Keith [facility] MD [facility] 10/19/21 Office Visit Keith [facility] MD [facility] 10/05/21 Office Visit Keith Craft MD [facility] 09/08/21 Office Visit Brie Denis, NICOLE [facility] 08/14/21 Office Visit Keith Craft MD [facility] 07/31/21 Office Visit Keith Craft MD [facility] 05/25/21 Office Visit Marcin Anderson, AUTOMATIC PRINT DEVELOPER, PARTS CHASER [facility] 05/05/21 Office Visit Brie Denis, PAC [facility] [place] 05/25/21 Office Visit Marcin Anderson APRN, PARTS CHASER [facility] 05/05/21 Office Visit Brie Denis, PAC [facility] [...] Description 08/27/2024 1:15 PM CDT Office Visit [facility] - Endocrinology [facility] #2 [place] [address] Yasmin Restrepo MD #[address] [phone] 09/02/2024 2:00 PM CDT [facility] 1 [place] [address] Werner Swift MD #2 [place] [address] Discharge Disposition: Discharged to home or Selfcare 10/08/2024 1:40 PM CDT Office Visit [facility] - Family Medicine [facility] #2 [facility] [phone] Liz Capellan, DO 2 [facility] [address] [place] [address] 11/16/2024 1:00 PM CDT Office Visit [facility] - Pulmonology & Sleep Medicine [facility] #2 [place] [address] Werner Swift MD #2 [place] [address] documented as of this encounter Goals Goal [...] Zones/Action plan education. I will notify my Crosscutter if my symptoms fall in the y [...] 19 04/20/2022 04/20/2022 04/30/2022 12:1 8 AM ARCHITECTURAL MODELER COVID - 19 07/18/2022 07/18/2022 07/28/2022 12:1 6 AM ARCHITECTURAL MODELER COVID - 19 08/21/2022 08/21/2022 08/22/2022 8:31 AM CDT Respiratory Rule Out - RPA 08/21/2022 08/21/2022 0 08/22/2022 3:21 PM CDT COVID - 19 04/18/2023 04/18/2023 04/28/2023 12:1 6 AM ARCHITECTURAL MODELER COVID - 19 07/13/2023 07/13/2023 07/23/2023 12:1 6 AM ARCHITECTURAL MODELER Respiratory Rule Out - RPA 03/17/2024 03/17/2024 1 3:36 PM CDT COVID - 19 04/27/2024 04/27/2024 04/27/2024 2:19 PM ARCHITECTURAL MODELER Respiratory Rule-Out 07/24/2024 07/24/2024 025 2:29 PM ARCHITECTURAL MODELER COVID - 19 07/24/2024 07/24/2024 07/24/2024 2:29 PM ARCHITECTURAL MODELER Assessment Noted Time PHQ-9 Depression Total Score: 1 03/07/20 10:29 AM CDT documented as of this encounter Care Teams Physician Non Invasive Cardiologist Relationship Specialty Start Date End Date Keith Craft MD PCP - General Family Medicine 01/14/19 12/26/23 Liz Capellan DO [address] [address] PCP - General Family Medicine 12/27/23 Quang Locke DO Gastroenterology 01/18/16 Bri Rollins, RN [place] Crosscutter 03/07/21 05/22/23 [place] [address] [address] 05/25/21 Bri Rollins, RN [place] Nurse Crosscutter 03/07/21 05/23/23 Werner Swift MD #2 [place] [address] Consulting Physician Pulmonary Disease 01/30/22 Yasmin Restrepo MD #[address] [address] Consulting Physician Endocrinology 07/20/24 documented as of this encounter
--- OUTSIDE RECORDS SUMMARY | 2024-08-16 19:29 | XMS_ITS | Encounter Summary ---
Author Organization [facility] Address [address] [place] [address] Phone Care Team Providers Care Radiosonde Specialist Name Role Phone Quang Locke DO Unavailable Keith Craft MD Primary Care Provider [phone] Bri Rollins RN Unavailable Unavailable Silvio Schulte MD Unavailable [phone] Bri Rollins RN Unavailable Unavailable Werner Swift MD Unavailable Liz Capellan DO Primary Care Provider [phone] Yasmin Restrepo MD Unavailable Reason for Visit * Reason Comments Medication Refill Encounter Details Date Type Department Care Team (Late st Contact Info) Description 02/08/2021 Refill [facility] - Family Medicine [facility] #2 [place] [address] Keith Craft MD #1 [place] [address] Medication Refill Social History Tobacco Use Types [...] Mehta RN - 02/09/2021 11:43 AM CDT [place] last fill date 01/04/21 Medication failed [...] Description 08/27/2024 1:15 PM CDT Office Visit [facility] - Endocrinology [facility] #2 [place] [address] Yasmin Restrepo MD #[address] [phone] 09/02/2024 2:00 PM CDT [facility] 1 [place] [address] Werner Swift MD #2 [place] [address] Discharge Disposition: Discharged to home or Selfcare 10/08/2024 1:40 PM CDT Office Visit [facility] Medical [facility] - Family Medicine [facility] #2 [place] [address] Liz Capellan, DO [address] [address] 11/16/2024 1:00 PM CDT Office Visit [facility] - Pulmonology & Sleep Medicine [facility] #2 [place] [address] Werner Swift MD #2 [place] [address] documented as of this encounter Visit Diagnoses Diagnosis Anxiety and depression Dysthymic disorder documented in this encounter Additional Health Concerns Infection Onset Date Last Indicated Resolved Time COVID - 19 07/23/2021 07/23/2021 07/24/2021 6:31 AM BEHAVIORAL HEALTH THERAPIST COVID - 19 10/19/2021 10/19/2021 10/20/2021 7:45 AM CDT Respiratory Rule Out - RPA 10/19/2021 10/19/2021 0 10/20/2021 2:10 PM CDT Stenotrophomonas maltophilia Comment:Must have a follow up respiratory sample to remove isolation flag. 10/20/2021 10/20/2021 COVID - 19 04/20/2022 04/20/2022 04/30/2022 12:1 8 AM BEHAVIORAL HEALTH THERAPIST COVID - 19 07/18/2022 07/18/2022 07/28/2022 12:1 6 AM BEHAVIORAL HEALTH THERAPIST COVID - 19 08/21/2022 08/21/2022 08/22/2022 8:31 AM CDT Respiratory Rule Out - RPA 08/21/2022 08/21/2022 0 08/22/2022 3:21 PM CDT COVID - 19 04/18/2023 04/18/2023 04/28/2023 12:1 6 AM BEHAVIORAL HEALTH THERAPIST COVID - 19 07/13/2023 07/13/2023 07/23/2023 12:1 6 AM BEHAVIORAL HEALTH THERAPIST Respiratory Rule Out - RPA 03/17/2024 03/17/2024 1 3:36 PM CDT COVID - 19 04/27/2024 04/27/2024 04/27/2024 2:19 PM BEHAVIORAL HEALTH THERAPIST Respiratory Rule-Out 07/24/2024 07/24/2024 025 2:29 PM BEHAVIORAL HEALTH THERAPIST COVID - 19 07/24/2024 07/24/2024 07/24/2024 2:29 PM BEHAVIORAL HEALTH THERAPIST Assessment Noted Time PHQ-9 Depression Total Score: 0 02/04/20 11:12 AM CDT documented as of this encounter Care Teams Radiosonde Specialist Relationship Specialty Start Date End Date Keith Craft MD PCP - General Family Medicine 01/14/19 12/26/23 Liz Capellan DO [address] [address] PCP - General Family Medicine 12/27/23 Quang Locke DO Gastroenterology 01/18/16 Bri Rollins, KATEY [place] Rock Contractor 03/07/21 05/22/23 [place] [address] [address] 05/25/21 Bri Rollins RN [place] Nurse Rock Contractor 03/07/21 05/23/23 Werner Swift MD #2 [place] [address] Consulting Physician Pulmonary Disease 01/30/22 Yasmin Restrepo MD #[address] [address] Consulting Physician Endocrinology 07/20/24 documented as of this encounter
--- OUTSIDE RECORDS SUMMARY | 2024-08-16 19:29 | XMS_ITS | Encounter Summary ---
Author Organization [facility] Address [address] [place] [address] Phone Care Team Providers Care Magento Developer Name Role Phone Quang Locke Oswaldo PRESLEY Unavailable [phone] Silvio Schulte MD Unavailable [phone] Werner Swift MD Unavailable Liz Capellan DO Primary Care Provider Yasmin Restrepo MD Unavailable Reason for Visit * Reason Onset Date Comments Medication Management 05/01/2024 Encounter Details Date Type Department Care Team (Late st Contact Info) Description 05/01/2024 Telephone [facility] [address] [place], [place] [phone] Liz Cpaellan DO 2 . [facility] [address] [place] [address] Medication Management Social History Tobacco Use Types Packs/Day Years Used Date Smoking Tobacco: Former Cigarettes 2 50 1 - 03/16/2018 Smokeless Tobacco: Never Comments:Still uses nictoine patches and gum Alcohol Use Standard Drinks/Week Comments No 0 (1 standard drink = 0.6 oz pur e alcohol) [facility] Utilities Answer Date Recorded In [...] declined 04/27/2024 How often do you attend synagogue or yazidism serv ices? Patient declined 04/27/2024 Do you belong to any clubs o r organizations such as synagogue groups, unions, fraternal or athletic groups, or [...] Total Score - Questions 1-9 4 10/25 [facility] Occupat ional Health - Occupational Stress [...] a skilled nursing (including now)? No 07/13/2023 Housing Stability Vital [...] any time in the past 12 m [facility], were you homeless or living in a skilled nursing (including now)? Patient declined 04/27/2024 Education Answer [...] encounter Miscellaneous Notes * Telephone Encounter - Grcae Friedman, PT - 05/01/2024 9:47 PM CHANGE ADVISOR S - Medication discrepancies B - Current [facility] patient resumption of care after a hospitalization completed on 05-01-24 SN and PT. A - Patient reports: Requests to add med (med/dose/route/frequency PRN reason) [id number]/phenyleephrine hcl 10mg, take 1 every 4 hours. R - Please review the above med discrepancies and update the medication list in EPIC to reflect theany changes. Notify Home Health when complete to facilitate patient education. GE ADVISOR documented in this encounter Plan of Treatment Upcoming Encounters Date Type Department Care Team (Late st Contact Info) Description 08/27/2024 1:15 PM CDT Office Visit [facility] - Endocrinology - [place] #2 [place] [phone] Yasmin Restrepo MD #[address] [phone] 09/02/2024 2:00 PM CDT Appointment [facility] Respiratory Therapy 1 [place] [address] Werner Swift MD #2 [place] [address] Discharge Disposition: Discharged to home or Selfcare 10/08/2024 1:40 PM CDT Office Visit [facility] Medical [facility] - Family Medicine - [place] #2 [place] [address] Liz Capellan, DO [address] [phone] 11/16/2024 1:00 PM CDT Office Visit [facility] - Pulmonology & Sleep Medicine [facility] #2 [place] [address] Werner Swift MD #2 [place] [address] documented as of this encounter [...] Zones/Action plan education. I will notify my User Interface Developer if my symptoms fall in the [...] Respiratory Rule-Out 07/24/2024 07/24/2024 025 2:29 PM CHANGE ADVISOR COVID - 19 07/24/2024 07/24/2024 07/24/2024 2:29 PM CHANGE ADVISOR Assessment Noted Time PHQ-9 Depression Total Score: 4 11/08/19 24 9:33 AM CDT documented as of this encounter Care Teams Magento Developer Relationship Specialty Start Date End Date Liz Capellan DO 2 [facility] [address] [place], [place] [phone] PCP - General Family Medicine 12/27/23 Quang Locke DO Gastroenterology 01/18/16 [place] [address] [address] 05/25/21 Werner Swift MD #2 [place] [address] Consulting Physician Pulmonary Disease 01/30/22 Yasmin Restrepo MD #[address] [address] Consulting Physician Endocrinology 07/20/24 documented as of this encounter
--- OUTSIDE RECORDS SUMMARY | 2024-08-16 19:29 | XMS_ITS | Encounter Summary ---
Author Organization [facility] Address [address] [place] [address] Phone Care Team Providers Care Mergers And Acquisitions Banker Name Role Phone Quang Locke DO Unavailable Keith Craft MD Primary Care Provider [phone] Bri Rollins RN Unavailable Unavailable Silvio Schulte MD Unavailable [phone] Bri Rollins RN Unavailable Unavailable Werner Swift MD Unavailable Liz Capellan DO Primary Care Provider [phone] Yasmin Restrepo MD Unavailable Reason for Visit * Reason Onset Date Comments Medication Refill 08/24/2020 Encounter Details Date Type Department Care Team (Late st Contact Info) Description 08/24/2020 Refill [facility] Medical Group - Family [facility] [address] [place] [address] Keith Craft MD #1 [place] [address] Medication Refill Social History Tobacco Use Types [...] COVID-19? No / Unsure 07/30/2020 3:25 PM INDUSTRIAL RECRUITER documented as of this encounter Miscellaneous Notes * Telephone Encounter - Keerthi Kline RN - 08/24/2020 8:49 AM CDT Medication failed the protocol, provider to review and approve the medication order if appropriate. Requested Prescriptions Pending Prescriptions Disp Refills UltiCare Mini Pen [place] 31G X 6 MM Misc 300 Each [...] physician/MARINO review. Refill encounter routed to nurse Mike's pool for processing. Prescriber action required. documented in this encounter Plan of Treatment Upcoming Encounters Date Type Department Care Team (Late st Contact Info) Description 08/27/2024 1:15 PM CDT [facility] - [place] #2 [place] [address] Yasmin Restrepo MD #[address] [address] 09/02/2024 2:00 PM CDT [facility] 1 [place] [address] Werner Swift MD #2 [place] [address] Discharge Disposition: Discharged to home or Selfcare 10/08/2024 1:40 PM CDT Office Visit [facility] Medical [facility] - Family Medicine [facility] #2 [place] [address] Liz Capellan, DO [address] [address] 11/16/2024 1:00 PM CDT Office Visit [facility] - Pulmonology & Sleep Medicine [facility] #2 [place] [address] Werner Swift MD #2 [place] [address] documented as of this encounter Visit Diagnoses [...] - 19 07/23/2021 07/23/2021 07/24/2021 6:31 AM INDUSTRIAL RECRUITER COVID - 19 10/19/2021 10/19/2021 10/20/2021 7:45 AM CDT Respiratory Rule Out - RPA 10/19/2021 10/19/2021 0 10/20/2021 2:10 PM CDT Stenotrophomonas maltophilia Comment:Must have a follow up respiratory sample to remove isolation flag. 10/20/2021 10/20/2021 COVID - 19 04/20/2022 04/20/2022 04/30/2022 12:1 8 AM INDUSTRIAL RECRUITER COVID - 19 07/18/2022 07/18/2022 07/28/2022 12:1 6 AM INDUSTRIAL RECRUITER COVID - 19 08/21/2022 08/21/2022 08/22/2022 8:31 AM CDT Respiratory Rule Out - RPA 08/21/2022 08/21/2022 0 08/22/2022 3:21 PM CDT COVID - 19 04/18/2023 04/18/2023 04/28/2023 12:1 6 AM INDUSTRIAL RECRUITER COVID - 19 07/13/2023 07/13/2023 07/23/2023 12:1 6 AM INDUSTRIAL RECRUITER Respiratory Rule Out - RPA 03/17/2024 03/17/2024 1 3:36 PM CDT COVID - 19 04/27/2024 04/27/2024 04/27/2024 2:19 PM INDUSTRIAL RECRUITER Respiratory Rule-Out 07/24/2024 07/24/2024 025 2:29 PM INDUSTRIAL RECRUITER COVID - 19 07/24/2024 07/24/2024 07/24/2024 2:29 PM INDUSTRIAL RECRUITER Assessment Noted Time PHQ-9 Depression Total Score: 2 06/07/19 21 2:34 PM INDUSTRIAL RECRUITER documented as of this encounter Care Teams Mergers And Acquisitions Banker Relationship Specialty Start Date End Date Keith Craft MD PCP - General Family Medicine 01/14/19 12/26/23 Liz Capellan DO [address] [address] PCP - General Family Medicine 12/27/23 Quang Locke DO Gastroenterology 01/18/16 Bri Rollins, RN [place] Clinic Scheduler 03/07/21 05/22/23 [place] [address] [address] 05/25/21 Bri Rollins, KATEY [place] Nurse Clinic Scheduler 03/07/21 05/23/23 Werner Swift MD #2 [place] [address] Consulting Physician Pulmonary Disease 01/30/22 Yasmin Restrepo MD #[address] [address] Consulting Physician Endocrinology 07/20/24 documented as of this encounter
--- OUTSIDE RECORDS SUMMARY | 2024-08-16 19:29 | XMS_ITS | Encounter Summary ---
Author Organization [facility] Address [address] [place] [address] Phone Care Team Providers Care E Commerce Marketing Manager Name Role Phone Quang Locke DO Unavailable [phone] Keith Craft MD Primary Care Provider [phone] Bri Rollins RN Unavailable Unavailable Silvio Schulte MD Unavailable [phone] Bri Rollins RN Unavailable Unavailable Werner Swift MD Unavailable Liz Capellan DO Primary Care Provider [phone] Yasmin Restrepo MD Unavailable Reason for Visit * Reason Comments Medication Refill Encounter Details Date Type Department Care Team (Late st Contact Info) Description 03/07/2022 Refill [facility] #2 [place] [address] Keith Craft MD #1 [place] [address] Medication Refill Social History Tobacco Use Types [...] [facility] - Endocrinology - [place] #[address] [place] [address] Yasmin Restrepo MD [address] [phone] 09/02/2024 2:00 PM CDT Appointment [facility] Respiratory Therapy 1 [place] [address] Werner Swift MD #2 [place] [address] Discharge Disposition: Discharged to home or Selfcare 10/08/2024 1:40 PM CDT Office Visit [facility] Family Medicine [facility] #2 [place] [address] Liz Capellan, DO [address] [address] 11/16/2024 1:00 PM CDT Office Visit [facility] Pulmonology & Sleep Medicine [facility] #2 [place] [address] Werner Swift MD #2 [place] [address] documented as of this encounter Goals Goal [...] plan education. I will notify my Chief Of Vital Statistics if my symptoms fall in the y [...] 04/20/2022 04/20/2022 04/30/2022 12:1 8 AM YARD PIPE GRADER COVID - 19 07/18/2022 07/18/2022 07/28/2022 12:1 6 AM YARD PIPE GRADER COVID - 19 08/21/2022 08/21/2022 08/22/2022 8:31 AM CDT Respiratory Rule Out - RPA 08/21/2022 08/21/2022 0 08/22/2022 3:21 PM CDT COVID - 19 04/18/2023 04/18/2023 04/28/2023 12:1 6 AM YARD PIPE GRADER COVID - 19 07/13/2023 07/13/2023 07/23/2023 12:1 6 AM YARD PIPE GRADER Respiratory Rule Out - RPA 03/17/2024 03/17/2024 1 3:36 PM CDT COVID - 19 04/27/2024 04/27/2024 04/27/2024 2:19 PM YARD PIPE GRADER Respiratory Rule-Out 07/24/2024 07/24/2024 025 2:29 PM YARD PIPE GRADER COVID - 19 07/24/2024 07/24/2024 07/24/2024 2:29 PM YARD PIPE GRADER Assessment Noted Time PHQ-9 Depression Total Score: 1 03/07/20 21 10:29 AM CDT documented as of this encounter Care Teams E Commerce Marketing Manager Relationship Specialty Start Date End Date Keith Craft MD PCP - General Family Medicine 01/14/19 12/26/23 Liz Capellan DO 2 [facility] [address] [address] PCP - General Family Medicine 12/27/23 Quang Locke DO Gastroenterology 01/18/16 Bri Rollins, RN [place] Chief Of Vital Statistics 03/07/21 05/22/23 [place] [id number] [address] 05/25/21 Bri Rollins, RN [place] Nurse Chief Of Vital Statistics 03/07/21 05/23/23 Werner Swift MD #2 [place] [address] Consulting Physician Pulmonary Disease 01/30/22 Yasmin Restrepo MD #[address] [address] Consulting Physician Endocrinology 07/20/24 documented as of this encounter
--- OUTSIDE RECORDS SUMMARY | 2024-08-16 19:29 | XMS_ITS | Encounter Summary ---
Author Organization [facility] Address [address] [place] [address] Phone Care Team Providers Care Premium Cancellation Clerk Name Role Phone Quang Locke DO Unavailable [phone] Keith Craft MD Primary Care Provider [phone] Bri Rollins RN Unavailable Unavailable Silvio Schulte MD Unavailable [phone] Bri Rollins RN Unavailable Unavailable Werner Swift MD Unavailable Liz Capellan DO Primary Care Provider [phone] Yasmin Restrepo MD Unavailable Reason for Visit * Reason Comments Medication Refill Encounter Details Date Type Department Care Team (Late st Contact Info) Description 11/20/2021 Refill [facility] #2 [place] [address] Keith Craft MD #1 [place] [address] Medication Refill Social History Tobacco Use Types [...] [place] 09/08/21 Office Visit Brie Denis, NICOLE [facility] [place] 08/14/21 Office Visit Keith Craft MD [facility] [place] 07/31/21 Office Visit Keith Craft MD [facility] [place] 05/25/21 Office Visit Marcin Anderson, TREE MARKER, TREATMENT TECHNICIAN [facility] 05/05/21 Office Visit Brie Denis PAC [facility] 04/14/21 Office Visit Keith Craft MD [facility] 03/23/21 Office Visit [facility] MD [facility] Show[facility] recent visits within past 730 days and meeting all other requirements Future Appointments Date Type Provider Dept 12/19/21 Appointment Keith Craft MD [facility] Showing future appointments within next 90 days and meeting all other requirements Passed - No documented Systolic BP > 200 within past 3 months Passed - Number of active Serotonergic medications less than 3 documented in this encounter Plan of Treatment Upcoming Encounters Date Type Department Care Team (Late st Contact Info) Description 08/27/2024 1:15 PM CDT Office Visit [facility] Medical [facility] - Endocrinology - [place] #2 [place] [address] Yasmin Restrepo MD #[address] [phone] 09/02/2024 2:00 PM CDT Appointment [facility] Respiratory Therapy 1 [place] [phone] Werner Swift MD #2 [place] [address] Discharge Disposition: Discharged to home or Selfcare 10/08/2024 1:40 PM CDT Office Visit [facility] Medical [facility] - Family Medicine [facility] #2 [place] [address] Liz Capellan, DO [address] [address] 11/16/2024 1:00 PM CDT Office Visit [facility] - Pulmonology & Sleep Medicine [facility] #[address] [place] [address] Werner Swift MD #[address] [place] [address] documented as of this encounter Goals Goal [...] plan education. I will notify my Associate Loan Officer if my symptoms fall in the y [...] 19 04/20/2022 04/20/2022 04/30/2022 12:1 8 AM SPECIAL LIBRARY LIBRARIAN COVID - 19 07/18/2022 07/18/2022 07/28/2022 12:1 6 AM SPECIAL LIBRARY LIBRARIAN COVID - 19 08/21/2022 08/21/2022 08/22/2022 8:31 AM CDT Respiratory Rule Out - RPA 08/21/2022 08/21/2022 0 08/22/2022 3:21 PM CDT COVID - 19 04/18/2023 04/18/2023 04/28/2023 12:1 6 AM SPECIAL LIBRARY LIBRARIAN COVID - 19 07/13/2023 07/13/2023 07/23/2023 12:1 6 AM SPECIAL LIBRARY LIBRARIAN Respiratory Rule Out - RPA 03/17/2024 03/17/2024 1 3:36 PM CDT COVID - 19 04/27/2024 04/27/2024 04/27/2024 2:19 PM SPECIAL LIBRARY LIBRARIAN Respiratory Rule-Out 07/24/2024 07/24/2024 025 2:29 PM SPECIAL LIBRARY LIBRARIAN COVID - 19 07/24/2024 07/24/2024 07/24/2024 2:29 PM SPECIAL LIBRARY LIBRARIAN Assessment Noted Time PHQ-9 Depression Total Score: 1 03/07/20 21 10:29 AM CDT documented as of this encounter Care Teams Premium Cancellation Clerk Relationship Specialty Start Date End Date Keith Craft MD PCP - General Family Medicine 01/14/19 12/26/23 Liz Capellan DO [address] [address] PCP - General Family Medicine 12/27/23 Quang Locke DO Gastroenterology 01/18/16 Bri Rollins RN [place] Associate Loan Officer 03/07/21 05/22/23 [place] [address] [address] 05/25/21 Bri Rollins RN [place] Nurse Associate Loan Officer 03/07/21 05/23/23 Werner Swift MD #2 [place] [address] Consulting Physician Pulmonary Disease 01/30/22 Yasmin Restrepo MD #[address] [address] Consulting Physician Endocrinology 07/20/24 documented as of this encounter
--- OUTSIDE RECORDS SUMMARY | 2024-08-16 19:29 | XMS_ITS | Encounter Summary ---
Author Organization [facility] Address [address] [place] [address] Phone Care Team Providers Care Classification And Treatment Director Name Role Phone Quang Locke DO Unavailable Keith Craft MD Primary Care Provider [phone] Bri Rollins RN Unavailable Unavailable Silvio Schulte MD Unavailable [phone] Bri Rollins RN Unavailable Unavailable Werner Swift MD Unavailable Liz Capellan DO Primary Care Provider [phone] Yasmin Restrepo MD Unavailable Reason for Visit * Reason Comments Medication Refill Encounter Details Date Type Department Care Team (Late st Contact Info) Description 01/05/2022 Refill [facility] #2 [place] [address] Keith Craft MD #1 [place] [address] Medication Refill Social History Tobacco Use Types [...] [place] 05/25/21 Office Visit Marcin Anderson APRN, PROFESSIONAL ARCHITECT [facility] [place] 05/05/21 Office Visit Brie Denis, PAC [facility] [place] 04/14/21 Office Visit [facility] [place] 03/23/21 Office Visit Keith Craft MD [facility] Showing recent visits within past 365 days and meeting all other requirements Future Appointments Date Type Provider Dept 03/09/22 Appointment Keith Craft MD [facility] [place] Showing future appointments within next 90 days and meeting all other requirements documented in this encounter Plan of Treatment Upcoming Encounters Date Type Department Care Team (Late st Contact Info) Description 08/27/2024 1:15 PM CDT Office Visit [facility] - Endocrinology - [place] #2 [facility] [place] [address] Yasmin Restrepo MD #[address] [address] 09/02/2024 2:00 PM CDT Appointment [facility] Respiratory Therapy 1 [place] [address] Werner Swift MD #2 [place] [address] Discharge Disposition: Discharged to home or Selfcare 10/08/2024 1:40 PM CDT Office Visit [facility] Medical [facility] - Family Medicine - [place] #2 [facility] [address] Liz Capellan, DO 2 [facility] [address] [place] [address] 11/16/2024 1:00 PM CDT Office Visit [facility] - Pulmonology & Sleep Medicine - [place] #2 [facility] [place] [address] Werner Swift MD #2 [place] [address] documented as of this encounter Goals Goal [...] Zones/Action plan education. I will notify my Compressor House Operator if my symptoms fall in [...] 19 04/20/2022 04/20/2022 04/30/2022 12:1 8 AM PREPRESS PROOFER COVID - 19 07/18/2022 07/18/2022 07/28/2022 12:1 6 AM PREPRESS PROOFER COVID - 19 08/21/2022 08/21/2022 08/22/2022 8:31 AM CDT Respiratory Rule Out - RPA 08/21/2022 08/21/2022 0 08/22/2022 3:21 PM CDT COVID - 19 04/18/2023 04/18/2023 04/28/2023 12:1 6 AM PREPRESS PROOFER COVID - 19 07/13/2023 07/13/2023 07/23/2023 12:1 6 AM PREPRESS PROOFER Respiratory Rule Out - RPA 03/17/2024 03/17/2024 1 3:36 PM CDT COVID - 19 04/27/2024 04/27/2024 04/27/2024 2:19 PM PREPRESS PROOFER Respiratory Rule-Out 07/24/2024 07/24/2024 025 2:29 PM PREPRESS PROOFER COVID - 19 07/24/2024 07/24/2024 07/24/2024 2:29 PM PREPRESS PROOFER Assessment Noted Time PHQ-9 Depression Total Score: 1 03/07/20 10:29 AM CDT documented as of this encounter Care Teams Classification And Treatment Director Relationship Specialty Start Date End Date Keith Craft MD PCP - General Family Medicine 01/14/19 12/26/23 Liz Capellan DO [address] [address] PCP - General Family Medicine 12/27/23 Quang Locke DO Gastroenterology 01/18/16 Bri Rollins RN [place] Compressor House Operator 03/07/21 05/22/23 [place] [address] [address] 05/25/21 Bri Rollins RN [place] Nurse Compressor House Operator 03/07/21 05/23/23 Werner Swift MD #[address] [place] [address] Consulting Physician Pulmonary Disease 01/30/22 Yasmin Restrepo MD [address] [address] Consulting Physician Endocrinology 07/20/24 documented as of this encounter
--- OUTSIDE RECORDS SUMMARY | 2024-08-16 19:29 | XMS_ITS | Encounter Summary ---
Author Organization [facility] Address [address] [place] [address] Phone Care Team Providers Care Propellant Charge Loader Name Role Phone Quang Locke DO Unavailable [phone] Keith Craft MD Primary Care Provider [phone] Bri Rollins RN Unavailable Unavailable Silvio Schulte MD Unavailable [phone] Bri Rollins RN Unavailable Unavailable Werner Swift MD Unavailable Liz Capellan DO Primary Care Provider [phone] Yasmin Restrepo MD Unavailable Reason for Visit * Reason Comments Medication Refill Encounter Details Date Type Department Care Team (Late st Contact Info) Description 02/13/2022 Refill [facility] #2 [place] [address] Keith Craft MD #1 [place] [address] Medication Refill Social History Tobacco Use Types [...] [place] 09/08/21 Office [facility]rie [facility] [place] Showing recent visits within past 182 days [...] [place] 09/08/21 Office Visit Brie Denis, PAC [facility] [place] 08/14/21 Office Visit Keith Craft MD [facility] [place] 07/31/21 Office Visit Keith Craft MD [facility] [place] 05/25/21 Office Visit Marcin Anderson APRN, CORK SORTER [facility] [place] 05/05/21 Office Visit Brie Denis, PAC [facility] [place] 04/14/21 Office Visit Keith [...] Visit [facility] - Endocrinology - [place] #2 [place] [address] Yasmin Restrepo MD #[address] [address] 09/02/2024 2:00 PM CDT [facility] Res[facility] 1 [place] [address] Werner Swift MD #2 [place] [address] Discharge Disposition: Discharged to home or Selfcare 10/08/2024 1:40 PM CDT Office Visit [facility] Family Medicine [facility] #2 [place] [address] Liz Capellan, DO [address] [address] 11/16/2024 1:00 PM CDT Office Visit [facility] - Pulmonology & Sleep Medicine [facility] #2 [place] [address] Werner Swift MD #2 [place] [address] documented as of this encounter Goals Goal [...] Zones/Action plan education. I will notify my Cigarette Carton Sealer if my symptoms fall in the y [...] 19 04/20/2022 04/20/2022 04/30/2022 12:1 8 AM EVENTS TRAFFIC CONTROLLER COVID - 19 07/18/2022 07/18/2022 07/28/2022 12:1 6 AM EVENTS TRAFFIC CONTROLLER COVID - 19 08/21/2022 08/21/2022 08/22/2022 8:31 AM CDT Respiratory Rule Out - RPA 08/21/2022 08/21/2022 0 08/22/2022 3:21 PM CDT COVID - 19 04/18/2023 04/18/2023 04/28/2023 12:1 6 AM EVENTS TRAFFIC CONTROLLER COVID - 19 07/13/2023 07/13/2023 07/23/2023 12:1 6 AM EVENTS TRAFFIC CONTROLLER Respiratory Rule Out - RPA 03/17/2024 03/17/2024 1 3:36 PM CDT COVID - 19 04/27/2024 04/27/2024 04/27/2024 2:19 PM EVENTS TRAFFIC CONTROLLER Respiratory Rule-Out 07/24/2024 07/24/2024 025 2:29 PM EVENTS TRAFFIC CONTROLLER COVID - 19 07/24/2024 07/24/2024 07/24/2024 2:29 PM EVENTS TRAFFIC CONTROLLER Assessment Noted Time PHQ-9 Depression Total Score: 1 03/07/20 21 10:29 AM CDT documented as of this encounter Care Teams Propellant Charge Loader Relationship Specialty Start Date End Date Keith Craft MD PCP - General Family Medicine 01/14/19 12/26/23 Liz Capellan DO [address] [id number] PCP - General Family Medicine 12/27/23 Quang Locke DO Gastroenterology 01/18/16 Bri Rollins, RN [place] Cigarette Carton Sealer 03/07/21 05/22/23 [place] [address] [address] 05/25/21 Bri Rollins RN [place] Nurse Cigarette Carton Sealer 03/07/21 05/23/23 Werner Swift MD #2 [place] [address] Consulting Physician Pulmonary Disease 01/30/22 Yasmin Restrepo MD #[address] [address] Consulting Physician Endocrinology 07/20/24 documented as of this encounter
--- OUTSIDE RECORDS SUMMARY | 2024-08-16 19:29 | XMS_ITS | Encounter Summary ---
Author Organization [facility] Address [address] [place] [address] Phone Care Team Providers Care Wash House Supervisor Name Role Phone Quang Locke DO Unavailable [phone] Keith Craft MD Primary Care Provider [phone] Bri Rollins RN Unavailable Unavailable Silvio Schulte MD Unavailable [phone] Bri Rollins RN Unavailable Unavailable Werner Swift MD Unavailable Liz Capellan DO Primary Care Provider [phone] Yasmin Restrepo MD Unavailable Reason for Visit * Reason Onset Date Comments Medication Refill 01/06/2022 Encounter Details Date Type Department Care Team (Late st Contact Info) Description 01/06/2022 Telephone [facility] [address] [place] [address] Keith Craft MD #1 [place] [address] Medication Refill Social History Tobacco Use Types [...] CDT Patient calling to request refill of [place]. Pharmacy verified. States she will get a delivery from the pharmacy on Saturday, which should be the fill date of thismedication. States her appointment to be seen by Keith Craft MD was changed from end of November to February by KATEY Swain. BSN. [facility] was told no need to be seen until then. Patient asking if there is anything needed for this order to be refilled? Please review documented in this encounter Plan of Treatment Upcoming Encounters Date Type Department Care Team (Late st Contact Info) Description 08/27/2024 1:15 PM CDT Office Visit [facility] #2 [place] [address] Yasmin Restrepo MD #[address] [address] 09/02/2024 2:00 PM CDT Appointment [facility] Respiratory Therapy 1 [place] [address] Werner Swift MD #2 [place] [address] Discharge Disposition: Discharged to home or Selfcare 10/08/2024 1:40 PM CDT Office Visit [facility] Medical [facility] - Family Medicine - [place] #2 [place] [address] Liz Capellan, DO 2 [facility] [address] [address] 11/16/2024 1:00 PM CDT Office Visit [facility] - Pulmonology & Sleep Medicine - [place] #2 [place] [address] Werner Swift MD #2 [place] [address] documented as of this encounter Goals Goal [...] Zones/Action plan education. I will notify my Test Examiner if my symptoms fall in the y [...] 19 04/20/2022 04/20/2022 04/30/2022 12:1 8 AM MANAGER SALES COVID - 19 07/18/2022 07/18/2022 07/28/2022 12:1 6 AM MANAGER SALES COVID - 19 08/21/2022 08/21/2022 08/22/2022 8:31 AM CDT Respiratory Rule Out - RPA 08/21/2022 08/21/2022 0 08/22/2022 3:21 PM CDT COVID - 19 04/18/2023 04/18/2023 04/28/2023 12:1 6 AM MANAGER SALES COVID - 19 07/13/2023 07/13/2023 07/23/2023 12:1 6 AM MANAGER SALES Respiratory Rule Out - RPA 03/17/2024 03/17/2024 1 3:36 PM CDT COVID - 19 04/27/2024 04/27/2024 04/27/2024 2:19 PM MANAGER SALES Respiratory Rule-Out 07/24/2024 07/24/2024 025 2:29 PM MANAGER SALES COVID - 19 07/24/2024 07/24/2024 07/24/2024 2:29 PM MANAGER SALES Assessment Noted Time PHQ-9 Depression Total Score: 1 03/07/20 21 10:29 AM CDT documented as of this encounter Care Teams Wash House Supervisor Relationship Specialty Start Date End Date Keith Craft MD PCP - General Family Medicine 01/14/19 12/26/23 Liz Capellan DO 2 [facility] [place] [address] PCP - General Family Medicine 12/27/23 Quang Locke DO Gastroenterology 01/18/16 Bri Rollins, RN [place] Test Examiner 03/07/21 05/22/23 [place] [address] [address] 05/25/21 Bri Rollins, KATEY [place] Nurse Test Examiner 03/07/21 05/23/23 Werner Swift MD #2 [place] [address] Consulting Physician Pulmonary Disease 01/30/22 Yasmin Restrepo MD #[address] [address] Consulting Physician Endocrinology 07/20/24 documented as of this encounter
--- OUTSIDE RECORDS SUMMARY | 2024-08-16 19:29 | XMS_ITS | Encounter Summary ---
Author Organization [facility] Address [address] [place] [address] Phone Care Team Providers Care Electronics Production Supervisor Name Role Phone Quang Locke DO Unavailable [phone] Keith Craft MD Primary Care Provider [phone] Silvio Schulte MD Unavailable [phone] Werner Swift MD Unavailable Liz Capellan DO Primary Care Provider [phone] Yasmin Restrepo MD Unavailable Reason for Visit * Reason Comments Medication Refill Encounter Details Date Type Department Care Team (Late st Contact Info) Description 08/07/2023 Refill [facility] #2 [place] [address] Keith Craft MD #1 [place] [address] Medication Refill Social History Tobacco Use Types Packs/Day Years Used Date Smoking Tobacco: Former Cigarettes 2 50 1 - 03/16/2018 Smokeless Tobacco: Never Comments:Still uses nictoine patches and gum Alcohol Use Standard Drinks/Week Comments No 0 (1 standard drink = 0.6 oz pur e alcohol) [facility] Utilities Answer Date Recorded In [...] often do you attend chur ch or yarsani services? Never 07/13/2023 Do you belong to [...] Score - Questions 1-9 0 /0 08/2021 [facility] [place] [facility] Occupat ional Health - Occupational Stress [...] Visit [facility] Endocrinology - [place] #2 [place] [address] Yasmin Restrepo MD #[address] [address] 09/02/2024 2:00 PM CDT [facility] 1 [place] [address] Werner Swift MD #2 [place] [address] Discharge Disposition: Discharged to home or Selfcare 10/08/2024 1:40 PM CDT Office Visit [facility] - Family Medicine [facility] #2 [place] [address] Liz Capellan, DO [address] [address] 11/16/2024 1:00 PM CDT Office Visit [facility] - Pulmonology & Sleep Medicine - [place] #2 [place] [address] Werner Swift MD [address] [place] [address] documented as of this encounter Goals Goal [...] Zones/Action plan education. I will notify my Vehicle Trimmer if my symptoms fall in the [...] - 19 04/27/2024 04/27/2024 04/27/2024 2:19 PM PAPERHANGER Respiratory Rule-Out 07/24/2024 07/24/2024 025 2:29 PM PAPERHANGER COVID - 19 07/24/2024 07/24/2024 07/24/2024 2:29 PM PAPERHANGER Assessment Noted Time PHQ-9 Depression Total Score: 1 03/07/20 21 10:29 AM CDT documented as of this encounter Care Teams Electronics Production Supervisor Relationship Specialty Start Date End Date Keith Craft MD PCP - General Family Medicine 01/14/19 12/26/23 Liz Capellan DO [address] [id number] PCP - General Family Medicine 12/27/23 Quang Locke DO Gastroenterology 01/18/16 [place] [address] [address] 05/25/21 Werner Swift MD #2 [place] [address] Consulting Physician Pulmonary Disease 01/30/22 Yasmin Restrepo MD #[address] [address] Consulting Physician Endocrinology 07/20/24 documented as of this encounter
--- OUTSIDE RECORDS SUMMARY | 2024-08-16 19:29 | XMS_ITS | Encounter Summary ---
Author Organization [facility] Address [address] [place] [address] Phone Care Team Providers Care Demurrage Clerk Name Role Phone Quang Locke DO Unavailable Keith Craft MD Primary Care Provider [phone] rBi Rollins RN Unavailable Unavailable Silvio Schulte MD Unavailable [phone] Bri Rollins RN Unavailable Unavailable Werner Swift MD Unavailable Liz Capellan DO Primary Care Provider [phone] Yasmin Restrepo MD Unavailable Reason for Visit * Reason Comments Medication Refill Encounter Details Date Type Department Care Team (Late st Contact Info) Description 12/13/2021 Refill [facility] Medicine [facility] #2 [place] [address] Keith Craft MD #1 [place] [address] Medication Refill Social History Tobacco Use Types [...] Final Insulin Pen Needle (UltiCare Mini Pen [place]) 31G X 6 MM Misc [Pharmacy Med Name: ULTICARE MINI PEN NEEDLES/31G X 6MM [id number] MISC] 300 Each 1 Sig: USE WITH [...] Provider Dept 03/09/22 Appointment Keith Craft MD [facility] Showing future appointments within next 90 days and meeting all other requirements documented in this encounter Plan of Treatment Upcoming Encounters Date Type Department Care Team (Late st Contact Info) Description 08/27/2024 1:15 PM CDT Office Visit [facility] - Endocrinology [facility] #2 [place] [address] Yasmin Restrepo MD #[address] [address] 09/02/2024 2:00 PM CDT Appointment [facility] Respiratory Therapy 1 [place] [address] Werner Swift MD #2 [place] [address] Discharge Disposition: Discharged to home or Selfcare 10/08/2024 1:40 PM CDT Office Visit [facility] Family Medicine [facility] #2 [place] [address] Liz Capellan, DO [address] [address] 11/16/2024 1:00 PM CDT Office Visit [facility] - Pulmonology & Sleep Medicine [facility] #2 [place] [address] Werner Swift MD #2 [place] [address] documented as of this encounter Goals Goal [...] Zones/Action plan education. I will notify my Heel Wheeler if my symptoms fall in the y [...] 19 04/20/2022 04/20/2022 04/30/2022 12:1 8 AM CREW LEAD COVID - 19 07/18/2022 07/18/2022 07/28/2022 12:1 6 AM CREW LEAD COVID - 19 08/21/2022 08/21/2022 08/22/2022 8:31 AM CDT Respiratory Rule Out - RPA 08/21/2022 08/21/2022 0 08/22/2022 3:21 PM CDT COVID - 19 04/18/2023 04/18/2023 04/28/2023 12:1 6 AM CREW LEAD COVID - 19 07/13/2023 07/13/2023 07/23/2023 12:1 6 AM CREW LEAD Respiratory Rule Out - RPA 03/17/2024 03/17/2024 1 3:36 PM CDT COVID - 19 04/27/2024 04/27/2024 04/27/2024 2:19 PM CREW LEAD Respiratory Rule-Out 07/24/2024 07/24/2024 025 2:29 PM CREW LEAD COVID - 19 07/24/2024 07/24/2024 07/24/2024 2:29 PM CREW LEAD Assessment Noted Time PHQ-9 Depression Total Score: 1 03/07/20 10:29 AM CDT documented as of this encounter Care Teams Demurrage Clerk Relationship Specialty Start Date End Date Keith Craft MD PCP - General Family Medicine 01/14/19 12/26/23 Liz Capellan DO [address] [address] PCP - General Family Medicine 12/27/23 Quang Locke DO Gastroenterology 01/18/16 Bri Rollins RN [place] Heel Wheeler 03/07/21 05/22/23 [place] [address] [address] 05/25/21 Bri Rollins RN [place] Nurse Heel Wheeler 03/07/21 05/23/23 Werner Swift MD #2 [place] [address] Consulting Physician Pulmonary Disease 01/30/22 Yasmin Restrepo MD #2 [place] [phone] Consulting Physician Endocrinology 07/20/24 documented as of this encounter
--- OUTSIDE RECORDS SUMMARY | 2024-08-16 19:29 | XMS_ITS | Encounter Summary ---
Author Organization [facility] Address [address] [place] [address] Phone Care Team Providers Care Mobile Heavy Equipment Mechanic Name Role Phone Quang Locke DO Unavailable [phone] Keith Craft MD Primary Care Provider [phone] Bri Rollins RN Unavailable Unavailable Silvio Schulte MD Unavailable Bri Rollins RN Unavailable Unavailable Werner Swift MD Unavailable Liz Capellan DO Primary Care Provider [phone] Yasmin Restrepo MD Unavailable Reason for Visit * Reason Comments Medication Refill Encounter Details Date Type Department Care Team (Late st Contact Info) Description 08/03/2022 Refill [facility] - [facility] #2 [place] [address] Keith Craft MD #1 [place] [address] Medication Refill Social History Tobacco Use Types [...] Coronavirus/COVID-19? No / Unsure 07/18/2022 12:40 PM NATURAL GAS PLANT TECHNICIAN documented as of this encounter Miscellaneous Notes [...] Date Type Provider Dept 07/18/22 Office Visit Kreri Kauffman, EDGERMAN, PIECE GOODS CLERK [facility] 06/07/22 Office Visit Keith Craft MD [facility] 03/02/22 Procedure Visit [facility] 03/02/22 Office Visit Keith Craft MD [facility] 11/03/21 Office Visit Keith Craft MD [facility] 10/19/21 Office Visit Keith Craft MD [facility] 10/05/21 Office Visit Keith Craft MD [facility] 09/08/21 Office Visit Brie Denis, PAC [facility] 08/14/21 Office Visit Keith Craft MD [...] Provider Dept 07/18/22 Office Visit Kerri Kauffman, EDGERMAN, PIECE GOODS CLERK [facility] [place] 06/07/22 Office Visit Keith Craft MD [facility] 03/02/22 Procedure Visit [facility] DIABET[facility] RETINAL IMAGING [facility] [place] 03/02/22 Office Visit Keith Craft MD [facility] 11/03/21 Office Visit Keith Craft MD [facility] 10/19/21 Office Visit Keith Craft MD [facility] 10/05/21 Office Visit Keith Craft MD [facility] 09/08/21 Office Visit Brie Denis, PAC [facility] [place] 08/14/21 Office Visit Keith Craft MD [facility] Showing recent visits within past [...] Provider Dept 07/18/22 Office Visit Kerri Kauffman, EDGERMAN, PIECE GOODS CLERK [facility] 06/07/22 Office Visit Keith Craft, [facility] 03/02/22 Procedure Visit [facility] DIABETIC RETINAL IMAGING [facility] 03/02/22 Office Visit Keith Craft, [facility] [place] 11/03/21 Office Visit Keith Craft, [facility] 10/19/21 Office Visit Keith Craft, [facility] 10/05/21 Office Visit Keith Craft, [facility] 09/08/21 Office Visit Brie Denis, PAC [facility] [place] 08/14/21 [facility] visits within past 365 days and meeting all other requirements Future Appointments Date Type Provider Dept 09/10/22 Appointment Keith Craft, [facility] Showing future appointments within next [...] Range Status 06/07/2022 56.2 <130 mg/dL Final RAL GAS PLANT TECHNICIAN * Telephone Encounter - Gloria Cornejo RN - 08/03/2022 12:09 PM CST Images from the original note were not included. Rosuvastatin Calcium Dispensed Days Supply Quantity Provider Pharmacy ROSUVASTATIN 20MG TAB 07/30/2022 90 90 Tablet Silvio Schulte MD [facility]/pharm[facility] #[id number] - W... ROSUVASTATIN 20MG TAB 05/10/2022 90 90 Tablet Keith Craft MD [facility] Bet... RAL GAS PLANT TECHNICIAN documented in this encounter Plan of Treatment Upcoming Encounters Date Type Department Care Team (Late st Contact Info) Description 08/27/2024 1:15 PM CDT Office Visit [facility] - Endocrinology - [place] #2 [place] [address] Yasmin Restrepo MD #[address] [phone] 09/02/2024 2:00 PM CDT [facility] 1 [place] [phone] Werner Swift MD #2 [place] [address] Discharge Disposition: Discharged to home or Selfcare 10/08/2024 1:40 PM CDT [facility] - [place] #2 [place] [address] Liz Capellan, DO [address] [address] 11/16/2024 1:00 PM CDT [facility] [place] #2 [place] [address] Werner Swift MD #2 [place] [address] documented as of this encounter Goals Goal [...] Zones/Action plan education. I will notify my Manufacturing Production Manager if my symptoms fall in [...] 19 04/18/2023 04/18/2023 04/28/2023 12:1 6 AM NATURAL GAS PLANT TECHNICIAN COVID - 19 07/13/2023 07/13/2023 07/23/2023 12:1 6 AM NATURAL GAS PLANT TECHNICIAN Respiratory Rule Out - RPA 03/17/2024 03/17/2024 1 3:36 PM CDT COVID - 19 04/27/2024 04/27/2024 04/27/2024 2:19 PM NATURAL GAS PLANT TECHNICIAN Respiratory Rule-Out 07/24/2024 07/24/2024 025 2:29 PM NATURAL GAS PLANT TECHNICIAN COVID - 19 07/24/2024 07/24/2024 07/24/2024 2:29 PM NATURAL GAS PLANT TECHNICIAN Assessment Noted Time PHQ-9 Depression Total Score: 1 03/07/20 10:29 AM CDT documented as of this encounter Care Teams Mobile Heavy Equipment Mechanic Relationship Specialty Start Date End Date Keith Craft MD PCP - General Family Medicine 01/14/19 12/26/23 Liz Capellan DO [address] [address] PCP - General Family Medicine 12/27/23 Quang Locke DO Gastroenterology 01/18/16 Bri Rollins RN [place] Manufacturing Production Manager 03/07/21 05/22/23 [place] [address] [address] 05/25/21 Bri Rollins RN [place] Nurse Manufacturing Production Manager 03/07/21 05/23/23 Werner Swift MD #2 [place] [address] Consulting Physician Pulmonary Disease 01/30/22 Yasmin Restrepo MD [address] [address] Consulting Physician Endocrinology 07/20/24 documented as of this encounter
--- OUTSIDE RECORDS SUMMARY | 2024-08-16 19:29 | XMS_ITS | Encounter Summary ---
Author Organization [facility] Address [address] [place] [address] Phone Care Team Providers Care Post Graduate Internship Name Role Phone Quang Locke DO Unavailable [phone] Keith Craft MD Primary Care Provider [phone] Bri Rollins RN Unavailable Unavailable Silvio Schulte MD Unavailable [phone] Bri Rollins RN Unavailable Unavailable Werner Swift MD Unavailable Liz Capellan DO Primary Care Provider [phone] Yasmin Restrepo MD Unavailable Reason for Visit * Reason Comments Medication Refill Encounter Details Date Type Department Care Team (Late st Contact Info) Description 07/09/2022 Refill [facility] #2 [place] [address] Keith Craft MD #1 [place] [address] Medication Refill Social History Tobacco Use Types [...] Georgia Roblero RN - 07/09/2022 11:01 AM LAND SURVEYOR ASSISTANT Medication failed the protocol, provider to review [...] Dept 06/07/22 Office Visit [facility] MD [facility] 03/02/22 Procedure [facility]22 Office Visit Keith Craft MD [facility] 11/03/21 Office Visit Keith Craft MD [facility] 10/19/21 Office Visit Keith Craft MD [facility] 10/05/21 Office Visit Keith Craft MD [facility] 09/08/21 Office Visit Brie Denis, PAC [facility] 08/14/21 Office [facility] 07/[facility]/21 Office Visit Keith Craft MD [facility] [...] 03/02/22 Procedure Visit [facility] DIABETIC RETINAL IMAGING [facility] 03/02/22 Office Visit Keith Craft MD [facility] 11/03/21 Office Visit Keith Craft MD [facility] 10/19/21 Office Visit Keith Craft MD [facility] 10/05/21 Office Visit Keith Craft MD [facility] 09/08/21 Office Visit Brie Denis, NICOLE [facility] 08/14/21 Office Visit Keith Craft MD [facility] 07/31/21 Office Visit Keith Craft MD [facility] Showing recent visits within past 365 days and meeting all other requirements Future Appointments Date Type Provider Dept 09/10/22 Appointment Keith Craft MD [facility] Showing future appointments within next 90 days and meeting all other requirements SURVEYOR ASSISTANT documented in this encounter Plan of Treatment Upcoming Encounters Date Type Department Care Team (Late st Contact Info) Description 08/27/2024 1:15 PM CDT Office Visit [facility] - Endocrinology - [place] #2 [place] [address] Yasmin Restrepo MD #2 [facility] [address] [place] [address] 09/02/2024 2:00 PM CDT [facility] 1 [place] [address] Werner Swift MD #2 [place] [address] Discharge Disposition: Discharged to home or Selfcare 10/08/2024 1:40 PM CDT Office Visit [facility] - Family Medicine [facility] #2 [place] [address] Liz Capellan, DO 2 [facility] [address] [place] [address] 11/16/2024 1:00 PM CDT Office Visit [facility] - Pulmonology & Sleep Medicine [facility] #2 [place] [address] Werner Swift MD #2 [place] [address] documented as of this encounter Goals Goal [...] Zones/Action plan education. I will notify my Grocery Manager if my symptoms fall in the [...] 19 07/18/2022 07/18/2022 07/28/2022 12:1 6 AM LAND SURVEYOR ASSISTANT COVID - 19 08/21/2022 08/21/2022 08/22/2022 8:31 AM CDT Respiratory Rule Out - RPA 08/21/2022 08/21/2022 0 08/22/2022 3:21 PM CDT COVID - 19 04/18/2023 04/18/2023 04/28/2023 12:1 6 AM LAND SURVEYOR ASSISTANT COVID - 19 07/13/2023 07/13/2023 07/23/2023 12:1 6 AM LAND SURVEYOR ASSISTANT Respiratory Rule Out - RPA 03/17/2024 03/17/2024 1 3:36 PM CDT COVID - 19 04/27/2024 04/27/2024 04/27/2024 2:19 PM LAND SURVEYOR ASSISTANT Respiratory Rule-Out 07/24/2024 07/24/2024 025 2:29 PM LAND SURVEYOR ASSISTANT COVID - 19 07/24/2024 07/24/2024 07/24/2024 2:29 PM LAND SURVEYOR ASSISTANT Assessment Noted Time PHQ-9 Depression Total Score: 1 03/07/20 21 10:29 AM CDT documented as of this encounter Care Teams Post Graduate Internship Relationship Specialty Start Date End Date Keith Craft MD PCP - General Family Medicine 01/14/19 12/26/23 Liz Capellan DO 2 [facility] [place] [address] [address] PCP - General Family Medicine 12/27/23 Quang Locke DO Gastroenterology 01/18/16 Bri Rollins, RN [place] Grocery Manager 03/07/21 05/22/23 [place] [address] [address] 05/25/21 Bri Rollins, RN [place] Nurse Grocery Manager 03/07/21 05/23/23 Werner Swift MD #2 [place] [address] Consulting Physician Pulmonary Disease 01/30/22 Yasmin Restrepo MD #2 [facility] [address] Consulting Physician Endocrinology 07/20/24 documented as of this encounter
--- OUTSIDE RECORDS SUMMARY | 2024-08-16 19:29 | XMS_ITS | Encounter Summary ---
Author Organization [facility] Address [address] [place] [address] Phone Care Team Providers Care Barrel Scraper Name Role Phone Quang Locke DO Unavailable [phone] Keith Craft MD Primary Care Provider [phone] Silvio Schulte MD Unavailable [phone] Werner Swift MD Unavailable Liz Capellan DO Primary Care Provider [phone] Yasmin Restrepo MD Unavailable Reason for Visit * Reason Comments Medication Refill Encounter Details Date Type Department Care Team (Late st Contact Info) Description 07/10/2023 Refill [facility] Family Medicine [facility] #2 [place] [address] Keith Craft MD #1 [place] [address] Medication Refill Social History Tobacco Use Types Packs/Day Years Used Date Smoking Tobacco: Former Cigarettes 2 50 1 - 03/16/2018 Smokeless Tobacco: Never Comments:Still uses nictoine patches and gum Alcohol Use Standard Drinks/Week Comments No 0 (1 standard drink = 0.6 oz pur e alcohol) [facility] Utilities Answer Date Recorded In [...] 1-9 0 /0 08/2021 [facility] Occupat ional [facility] - Occupational Stress [...] in a longterm (including now)? No 07/13/2023 Education Answer Date [...] Kelin Nance RN - 07/10/2023 2:40 PM DIAMOND SETTER Corrected - PDMP 05-04-23 OND SETTER * Telephone Encounter - Kelin Nance RN - 07/10/2023 2:39 PM DIAMOND SETTER PDMP 05-04-24, 30 days Will need UDS [...] Dept 05/02/23 [facility] Visit [facility]23 Office Visit Keith Craft MD [facility] 12/10/22 Office Visit Keith Craft MD [facility] 09/10/22 Office Visit Keith Craft MD [facility] 07/18/22 Office Visit Kerri Kauffman, LADLE CLEANER, SALES PROMOTION REPRESENTATIVE [facility] Show[facility] recent visits within past 365 days and meeting all other requirements Future Appointments Date Type Provider Dept 08/15/23 Appointment [facility] Showing future appointments within next 90 days and meeting all other requirements OND SETTER documented in this encounter Plan of Treatment Upcoming Encounters Date Type Department Care Team (Late st Contact Info) Description 08/27/2024 1:15 PM CDT Office Visit [facility] - Endocrinology [facility] #2 [place] [address] Yasmin Restrepo MD #[address] [address] 09/02/2024 2:00 PM CDT [facility] 1 [place] [address] Werner Swift MD #2 [place] [address] Discharge Disposition: Discharged to home or Selfcare 10/08/2024 1:40 PM CDT Office Visit [facility] - Family Medicine [facility] #2 [place] [address] Liz Capellan, DO [address] [address] 11/16/2024 1:00 PM CDT Office Visit [facility] - Pulmonology & Sleep Medicine [facility] #2 [place] [address] Werner Swift MD [address] [place] [address] documented as of this encounter Goals Goal [...] Zones/Action plan education. I will notify my Missile Inspector if my symptoms fall in the [...] 19 07/13/2023 07/13/2023 07/23/2023 12:1 6 AM DIAMOND SETTER Respiratory Rule Out - RPA 03/17/2024 03/17/2024 1 3:36 PM CDT COVID - 19 04/27/2024 04/27/2024 04/27/2024 2:19 PM DIAMOND SETTER Respiratory Rule-Out 07/24/2024 07/24/2024 025 2:29 PM DIAMOND SETTER COVID - 19 07/24/2024 07/24/2024 07/24/2024 2:29 PM DIAMOND SETTER Assessment Noted Time PHQ-9 Depression Total Score: 1 03/07/20 21 10:29 AM CDT documented as of this encounter Care Teams Barrel Scraper Relationship Specialty Start Date End Date Keith Craft MD PCP - General Family Medicine 01/14/19 12/26/23 Liz Capellan DO [address] [address] PCP - General Family Medicine 12/27/23 Quang Locke DO Gastroenterology 01/18/16 [place] [address] [address] 05/25/21 Werner Swift MD #2 [place] [address] Consulting Physician Pulmonary Disease 01/30/22 Yasmin Restrepo MD #[address] [address] Consulting Physician Endocrinology 07/20/24 documented as of this encounter
--- OUTSIDE RECORDS SUMMARY | 2024-08-16 19:29 | XMS_ITS | Encounter Summary ---
Author Organization [facility] Address [address] [place] [address] Phone Care Team Providers Care Recruiting Administrator Name Role Phone Quang Locke DO Unavailable [phone] Keith Craft MD Primary Care Provider [phone] Bri Rollins RN Unavailable Unavailable Silvio Schulte MD Unavailable [phone] Bri Rollins RN Unavailable Unavailable Werner Swift MD Unavailable Liz Capellan DO Primary Care Provider [phone] Yasmin Restrepo MD Unavailable Reason for Visit * Reason Comments Medication Refill Encounter Details Date Type Department Care Team (Late st Contact Info) Description 12/04/2021 Refill [facility] #2 [place] [address] Keith Craft MD #1 [place] [address] Medication Refill Social History Tobacco Use Types [...] Craft MD [facility] 10/19/21 Office Visit Ketih Craft MD [facility] 10/05/21 Office Visit Keith Craft MD [facility] 09/08/21 Office Visit Brie Denis, NICOLE [facility] 08/14/21 Office Visit Keith Craft MD [facility] 07/31/21 Office Visit Keith Craft MD [facility] 05/25/21 Office Visit Marcin Anderson, TRAILER ASSEMBLER, AGILE QA TESTER [facility] [place] 05/05/21 Office [facility] Brie Denis[facility] 04/14/21 Office Visit Keith Craft MD [facility] 03/23/21 Office Visit Keith Craft MD [facility] Showing recent visits within past 365 days and meeting all other requirements Future Appointments Date Type Provider Dept 12/19/21 Appointment Keith Craft MD [facility] Showing future appointments within next 90 days and meeting all other requirements documented in this encounter Plan of Treatment Upcoming Encounters Date Type Department Care Team (Late st Contact Info) Description 08/27/2024 1:15 PM CDT Office Visit [facility] - Endocrinology - [place] #2 [place] [address] Yasmin Restrepo MD #[address] [address] 09/02/2024 2:00 PM CDT Appointment [facility] Respiratory Therapy 1 [place] [address] Werner Swift MD #2 [place] [address] Discharge Disposition: Discharged to home or Selfcare 10/08/2024 1:40 PM CDT Office Visit [facility] - Family Medicine - [place] #2 [place] [address] Liz Capellan, DO [address] [address] 11/16/2024 1:00 PM CDT Office Visit [facility] - Pulmonology & Sleep Medicine [facility] #[address] [place] [address] Werner Swift MD [address] [place] [address] documented as of this encounter Goals Goal [...] Zones/Action plan education. I will notify my Carburizer if my symptoms fall in the y [...] 04/20/2022 04/20/2022 04/30/2022 12:1 8 AM TRANSPORTATION SALES CONSULTANT COVID - 19 07/18/2022 07/18/2022 07/28/2022 12:1 6 AM TRANSPORTATION SALES CONSULTANT COVID - 19 08/21/2022 08/21/2022 08/22/2022 8:31 AM CDT Respiratory Rule Out - RPA 08/21/2022 08/21/2022 0 08/22/2022 3:21 PM CDT COVID - 19 04/18/2023 04/18/2023 04/28/2023 12:1 6 AM TRANSPORTATION SALES CONSULTANT COVID - 19 07/13/2023 07/13/2023 07/23/2023 12:1 6 AM TRANSPORTATION SALES CONSULTANT Respiratory Rule Out - RPA 03/17/2024 03/17/2024 1 3:36 PM CDT COVID - 19 04/27/2024 04/27/2024 04/27/2024 2:19 PM TRANSPORTATION SALES CONSULTANT Respiratory Rule-Out 07/24/2024 07/24/2024 025 2:29 PM TRANSPORTATION SALES CONSULTANT COVID - 19 07/24/2024 07/24/2024 07/24/2024 2:29 PM TRANSPORTATION SALES CONSULTANT Assessment Noted Time PHQ-9 Depression Total Score: 1 03/07/20 21 10:29 AM CDT documented as of this encounter Care Teams Recruiting Administrator Relationship Specialty Start Date End Date Keith Craft MD PCP - General Family Medicine 01/14/19 12/26/23 Liz Capellan DO [address] [address] PCP - General Family Medicine 12/27/23 Quang Locke DO Gastroenterology 01/18/16 Bri Rollins RN [place] Carburizer 03/07/21 05/22/23 [place] [address] [address] 05/25/21 Bri Rollins, KATEY [place] Nurse Carburizer 03/07/21 05/23/23 Werner Swift MD #2 [place] [address] Consulting Physician Pulmonary Disease 01/30/22 Yasmin Restrepo MD [address] [address] Consulting Physician Endocrinology 07/20/24 documented as of this encounter
--- OUTSIDE RECORDS SUMMARY | 2024-08-16 19:29 | XMS_ITS | Encounter Summary ---
Author Organization [facility] Address [address] [place] [address] Phone Care Team Providers Care Gas Welding Machine Operator Name Role Phone Quang Locke DO Unavailable [phone] Keith Craft MD Primary Care Provider [phone] Bri Rollins RN Unavailable Unavailable Silvio Schulte MD Unavailable [phone] Bri Rollins RN Unavailable Unavailable Werner Swift MD Unavailable Liz Capellan DO Primary Care Provider [phone] Yasmin Restrepo MD Unavailable Reason for Visit * Reason Comments Medication Refill Encounter Details Date Type Department Care Team (Late st Contact Info) Description 03/17/2022 Refill [facility] - Family Medicine [facility] #2 [place] [address] Keith Craft MD [address] [place] [address] Medication Refill Social History Tobacco Use Types [...] Pending Prescriptions Disp Refills ergocalciferol (VITAMIN D) 59433 UNIT Capsule [Pharmacy Med Name: VITAMIN D [id number] CAPSULE] 12 Capsule 0 Sig: TAKE ONE CAPSULE BY MOUTH ONE TIME WEEKLY Vitamin Supplements (Adult) Protocol Failed - 03/17/2022 10:30 AM Failed - Vitamin D less than 1.25mg Passed - Visit with relevant provider in past 12 months or upcoming 90 days Recent Visits Date Type Provider Dept 03/02/22 Procedure Visit [facility] [place] 03/02/22 Office Visit Keith Craft MD [facility] [place] 11/03/21 Office Visit Keith Craft MD [facility] 10/19/21 Office Visit Keith Craft MD [facility] [place] 10/05/21 Office Visit Keith Craft MD [facility] 09/08/21 Office Visit Brie Denis, PAC [facility] [place] 08/14/21 Office Visit Keith Craft MD [facility] [place] 07/31/21 Office Visit Keith Craft MD [facility] 05/25/21 Office Visit Marcin Anderson APRN, JAKOB [facility] [place] 05/05/21 Office Visit Brie Denis, NICOLE [facility] Showing recent visits within past [...] 03/02/22 Procedure Visit [facility] [place] 03/02/22 Office Visit Keith Craft MD [facility] 11/03/21 Office Visit Keith Craft MD [facility] 10/19/21 Office Visit Keith Craft MD [facility] 10/05/21 Office Visit Keith Craft MD [facility] 09/08/21 Office Visit Brie Denis PAC [facility] [place] 08/14/21 Office Visit Keith Craft MD [facility] 07/31/21 Office Visit Keith Craft MD [facility] 05/25/21 Office Visit Marcin Anderson APRN, JAKOB [facility] [place] 05/05/21 Office Visit Brie Denis, NICOLE [facility] Showing recent visits within past 730 [...] 03/02/22 Procedure Visit [facility] [place] 03/02/22 [facility], [facility] 10[facility]19/21 [facility], [facility] 10/05/21 Office Visit Keith Craft, [facility] 09/08/21 Office Visit Brie Denis, PAC [facility] 08/14/21 Office Visit Keith Craft, [facility] 07/31/21 Office Visit Keith Craft, [facility] [place] 05/25/21 Office Visit Marcin Anderson APRN, POWERTRAIN ENGINEER [facility] 05/05/21 Office Visit Brie Denis, [facility] Showing recent visits within past 365 days and meeting all other requirements Future Appointments Date Type Provider Dept 06/04/22 Appointment Keith Craft, [facility] Showing future appointments within next [...] 03/02/22 Procedure Visit [facility] [place] 03/02/22 Office Visit Keith Craft MD [facility] 11/03/21 Office Visit Keith Craft MD [facility] 10/19/21 Office Visit Keith Craft, [facility] 10/05/21 Office Visit Keith Craft, [facility] 09/08/21 Office Visit Brie Denis, PAC [facility] 08/14/21 Office Visit Keith Craft, [facility] 07/31/21 Office Visit Keith Craft, [facility] 05/25/21 Office Visit Marcin Anderson APRN, POWERTRAIN ENGINEER [facility] [place] 05/05/21 Office Visit Brie Denis, [facility] Showing recent visits within past 365 days and meeting all other requirements Future Appointments Date Type Provider Dept 06/04/22 Appointment Keith Craft, [facility] Showing future appointments within next 90 [...] 03/02/22 Procedure Visit [facility]AL [facility] [place] 03/02/22 Office Visit Keith Craft MD [facility] 11/03/21 Office Visit Keith Craft MD [facility] 10/19/21 Office Visit Keith Craft MD [facility] 10/05/21 Office Visit Keith Craft MD [facility] 09/08/21 Office Visit Brie Denis, PAC [facility] [place] 08/14/21 Office Visit Keith Craft, MD [facility] 07/31/21 Office Visit Keiht Craft MD [facility] 05/25/21 Office Visit Marcin Anderson APRN, POWERTRAIN ENGINEER [facility] 05/05/21 Office Visit Brie Denis, PAC [facility] Showing recent visits within past 365 days and meeting all other requirements Future Appointments Date Type Provider Dept 06/04/22 Appointment Keith Craft MD [facility] Showing future appointments within next 90 days and meeting all other requirements documented in this encounter Plan of Treatment Upcoming Encounters Date Type Department Care Team (Late st Contact Info) Description 08/27/2024 1:15 PM CDT Office Visit [facility] - Endocrinology - [place] [address] [place] [phone] Yasmin Restrepo MD #[address] [phone] 09/02/2024 2:00 PM CDT Appointment [facility] Respiratory Therapy 1 [place] [phone] Werner Swift MD [address] [place] [phone] Discharge Disposition: Discharged to home or Selfcare 10/08/2024 1:40 PM CDT Office Visit [facility] - Family Medicine - [place] [address] [place] [phone] Liz Capellan, DO [address] [address] 11/16/2024 1:00 PM CDT Office Visit [facility] - Pulmonology & Sleep Medicine - [place] [address]2 [place] [phone] Werner Swift MD [address] [place] [phone] documented as of this encounter Goals Goal [...] Zones/Action plan education. I will notify my Impression Printer if my symptoms fall in the [...] 19 04/20/2022 04/20/2022 04/30/2022 12:1 8 AM PROOFER COVID - 19 07/18/2022 07/18/2022 07/28/2022 12:1 6 AM PROOFER COVID - 19 08/21/2022 08/21/2022 08/22/2022 8:31 AM CDT Respiratory Rule Out - RPA 08/21/2022 08/21/2022 0 08/22/2022 3:21 PM CDT COVID - 19 04/18/2023 04/18/2023 04/28/2023 12:1 6 AM PROOFER COVID - 19 07/13/2023 07/13/2023 07/23/2023 12:1 6 AM PROOFER Respiratory Rule Out - RPA 03/17/2024 03/17/2024 1 3:36 PM CDT COVID - 19 04/27/2024 04/27/2024 04/27/2024 2:19 PM PROOFER Respiratory Rule-Out 07/24/2024 07/24/2024 025 2:29 PM PROOFER COVID - 19 07/24/2024 07/24/2024 07/24/2024 2:29 PM PROOFER Assessment Noted Time PHQ-9 Depression Total Score: 1 03/07/20 10:29 AM CDT documented as of this encounter Care Teams Gas Welding Machine Operator Relationship Specialty Start Date End Date Keith Craft MD PCP - General Family Medicine 01/14/19 12/26/23 Liz Capellan DO [address] [id number] PCP - General Family Medicine 12/27/23 Quang Locke DO Gastroenterology 01/18/16 Bri Rollins RN [place] Impression Printer 03/07/21 05/22/23 [place] [id number] [address] 05/25/21 Bri Rollins RN [place] Nurse Impression Printer 03/07/21 05/23/23 Werner Swift MD [address] [place] [address] Consulting Physician Pulmonary Disease 01/30/22 Yasmin Restrepo MD #[address] [address] Consulting Physician Endocrinology 07/20/24 documented as of this encounter
--- OUTSIDE RECORDS SUMMARY | 2024-08-16 19:29 | XMS_ITS | Encounter Summary ---
Author Organization [facility] Address [address] [place] [address] Phone Care Team Providers Care Subscription Crew Leader Name Role Phone Quang Locke DO Unavailable [phone] Keith Craft MD Primary Care Provider [phone] Bri Rollins RN Unavailable Unavailable Silvio Schulte MD Unavailable [phone] Bri Rollins RN Unavailable Unavailable Werner Swift MD Unavailable Liz Capellan DO Primary Care Provider [phone] Yasmin Restrepo MD Unavailable Reason for Visit * Reason Comments Medication Refill Encounter Details Date Type Department Care Team (Late st Contact Info) Description 09/12/2020 Refill [facility] - [facility] #2 [place] [address] Keith Craft MD [address] [place] [address] Medication Refill Social History Tobacco Use Types [...] Pending Prescriptions Disp Refills ergocalciferol (VITAMIN D) 72993 UNIT Capsule [Pharmacy Med Name: VITAMIN D2 1.25MG(50,000 UNIT)] 12 Capsule 2 Sig: TAKE 1 CAPSULE BY MOUTH ONE TIME PER WEEK healthfinch Off-Protocol Failed - 09/12/2020 12:14 AM Failed - Medication not assigned to a protocol, review manually. 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 [facility] Keith Lemus MD Upcoming Appointments Future Appointments In 3 weeks Keith Craft MD [facility] YULIA Mckeon LOCK UP WORKER - Recent and Past Visits Recent Visits Date Type Provider Dept 06/07/20 Office Visit Keith Craft MD [facility] 04/25/20 Office Visit Keith Craft MD [facility] 02/02/20 Office Visit Keith Craft MD [facility] 11/02/19 Office Visit Keith Craft MD [facility] 07/27/19 Office Visit Keith Craft MD [facility] 06/10/19 [facility] visits within past 460 days with a meds authorizing provider and meeting all other requirements Future Appointments Date Type Provider Dept 10/04/20 Appointment Keith Craft MD [facility] Showing future appointments within next 90 days with a meds authorizing provider and meeting all other requirements documented in this encounter Plan of Treatment Upcoming Encounters Date Type Department Care Team (Late st Contact Info) Description 08/27/2024 1:15 PM CDT Office Visit [facility] - Endocrinology [facility] #2 [place] [address] Yasmin Restrepo MD #[address] [address] 09/02/2024 2:00 PM CDT Appointment [facility] Respiratory Therapy 1 [place] [address] Werner Swift MD [address] [place] [address] Discharge Disposition: Discharged to home or Selfcare 10/08/2024 1:40 PM CDT Office Visit [facility] - Family Medicine [facility] #[address] [place] [address] Liz Capellan, DO [address] [address] 11/16/2024 1:00 PM CDT Office Visit [facility] - Pulmonology & Sleep Medicine [facility] [address] [place] [address] Werner Swift MD [address] [place] [address] documented as of this encounter Visit Diagnoses Not on filedocumented in this encounter Additional Health Concerns Infection Onset Date Last Indicated Resolved Time COVID - 19 01/25/2021 01/25/2021 01/31/2021 8:10 AM CDT Respiratory Rule Out - RPA 01/30/2021 01/30/2021 0 02/01/2021 12:45 AM CDT COVID - 19 07/23/2021 07/23/2021 07/24/2021 6:31 AM BLENDER HELPER COVID - 19 10/19/2021 10/19/2021 10/20/2021 7:45 AM CDT Respiratory Rule Out - RPA 10/19/2021 10/19/2021 0 10/20/2021 2:10 PM CDT Stenotrophomonas maltophilia Comment:Must have a follow up respiratory sample to remove isolation flag. 10/20/2021 10/20/2021 COVID - 19 04/20/2022 04/20/2022 04/30/2022 12:1 8 AM BLENDER HELPER COVID - 19 07/18/2022 07/18/2022 07/28/2022 12:1 6 AM BLENDER HELPER COVID - 19 08/21/2022 08/21/2022 08/22/2022 8:31 AM CDT Respiratory Rule Out - RPA 08/21/2022 08/21/2022 0 08/22/2022 3:21 PM CDT COVID - 19 04/18/2023 04/18/2023 04/28/2023 12:1 6 AM BLENDER HELPER COVID - 19 07/13/2023 07/13/2023 07/23/2023 12:1 6 AM BLENDER HELPER Respiratory Rule Out - RPA 03/17/2024 03/17/2024 1 3:36 PM CDT COVID - 19 04/27/2024 04/27/2024 04/27/2024 2:19 PM BLENDER HELPER Respiratory Rule-Out 07/24/2024 07/24/2024 025 2:29 PM BLENDER HELPER COVID - 19 07/24/2024 07/24/2024 07/24/2024 2:29 PM BLENDER HELPER Assessment Noted Time PHQ-9 Depression Total Score: 2 06/07/19 2:34 PM BLENDER HELPER documented as of this encounter Care Teams Subscription Crew Leader Relationship Specialty Start Date End Date Keith Craft MD PCP - General Family Medicine 01/14/19 12/26/23 Liz Capellan DO [address] [address] PCP - General Family Medicine 12/27/23 Quang Locke DO Gastroenterology 01/18/16 Bri Rollins, RN [place] Flight Test Mechanic 03/07/21 05/22/23 [place] [id number] [address] 05/25/21 Bri Rollins, RN [place] Nurse Flight Test Mechanic 03/07/21 05/23/23 Werner Swift MD [address] [place] [address] Consulting Physician Pulmonary Disease 01/30/22 Yasmin Restrepo MD #[address] [address] Consulting Physician Endocrinology 07/20/24 documented as of this encounter
--- OUTSIDE RECORDS SUMMARY | 2024-08-16 19:29 | XMS_ITS | Encounter Summary ---
Author Organization [facility] Address [address] [place] [address] Phone Care Team Providers Care Chief Psychology Name Role Phone Quang Locke DO Unavailable [phone] Keith Craft MD Primary Care Provider [phone] Bri Rollins RN Unavailable Unavailable Silvio Schulte MD Unavailable [phone] Bri Rollins RN Unavailable Unavailable Werner Swift MD Unavailable Liz Capellan DO Primary Care Provider [phone] Yasmin Restrepo MD Unavailable Reason for Visit * Reason Comments Medication Refill Encounter Details Date Type Department Care Team (Late st Contact Info) Description 12/19/2021 Refill [facility] - Family Medicine [facility] #2 [place] [address] Keith Craft MD #[address] [place] [address] Medication Refill Social History Tobacco Use Types [...] [place] 09/08/21 Office [facility] Denis [facility] 08/14/21 Office Visit Keith Craft MD [facility] 07/31/21 Office Visit Keith Craft MD [facility] 05/25/21 Office Visit Marcin Anderson APRN, VISUAL MERCHANDISING ASSISTANT [facility] 05/05/21 Office Visit Brie Denis PAC [facility] 04/14/21 Office Visit Keith [...] [facility] 09/08/21 Office Visit Brie Denis, [facility] 08/14/21 Office Visit Keith Craft MD [facility] 07/31/21 Office Visit Keith Craft MD [facility] 05/25/21 Office Visit Marcin Anderson APRN, [facility] 05/05/21 Office Visit Brie Denis, [facility] 04/14/21 Office Visit Keith Craft MD [facility] 03/23/21 Office Visit Keith Craft MD [facility] Showing recent visits within past 365 days and meeting all other requirements Future Appointments Date Type Provider Dept 03/09/22 Appointment Keith Craft MD [facility] Showing future appointments within next 90 days and meeting all other requirements ergocalciferol (VITAMIN D) 61858 UNIT Capsule [Pharmacy Med Name: VITAMIN D [id number] CAPSULE] 12 Capsule 0 Sig: TAKE ONE CAPSULE BY MOUTH ONE TIME WEEKLY Vitamin Supplements (Adult) Protocol Failed - 12/19/2021 11:20 AM Failed - Vitamin D less than 1.25mg Passed - Visit with relevant provider in past 12 months or upcoming 90 days Recent Visits Date Type Provider Dept 11/03/21 Office Visit Keith Carft MD [facility] 10/19/21 Office Visit Keith Craft, MD [facility] 10/05/21 Office Visit Keith Craft, MD [facility] 09/08/21 Office Visit Brie Denis, PAC [facility] 08/14/21 Office Visit Keith Craft, MD [facility] 07/31/21 Office Visit Keith Craft MD [facility] 05/25/21 Office Visit Marcin Anderson APRN, [facility] [place] 05/05/21 Office Visit Brie Denis, PAC [facility] 04/14/21 Office Visit Keith Craft, MD [facility] 03/23/21 Office Visit Keith Craft, [place] [facility] Showing recent visits [...] 09/08/21 Office Visit Brie Denis, PAC [facility] 08/14/21 Office [facility] 07/[facility] Office Visit Keith Craft, [facility] 05/25/21 Office Visit Marcin Anderson, CAD INTERN, VISUAL MERCHANDISING ASSISTANT [facility] 05/05/21 Office Visit Brie Denis, PAC [facility] 04/14/21 Office Visit Keith Craft, [facility] 03/23/21 [facility] Visit Keith Craft, [facility] Showing recent visits within past 365 days and meeting all other requirements Future Appointments Date Type Provider Dept 03/09/22 Appointment Keith Craft, [facility] Showing future appointments within next 90 days and meeting all other requirements documented in this encounter Plan of Treatment Upcoming Encounters Date Type Department Care Team (Late st Contact Info) Description 08/27/2024 1:15 PM CDT Office Visit [facility] - Endocrinology [facility] #2 [place] [phone] Yasmin Restrepo MD #[address] [address] 09/02/2024 2:00 PM CDT Appointment [facility] Respiratory Therapy 1 [place] [phone] Werner Swift MD #2 [place] [address] Discharge Disposition: Discharged to home or Selfcare 10/08/2024 1:40 PM CDT Office Visit [facility] Family Medicine [facility] #[address] [place] [address] Liz Capellan, DO [address] [place] [address] 11/16/2024 1:00 PM CDT Office Visit [facility] - Pulmonology & Sleep Medicine - [place] #[address] [place] [address] Werner Swift MD [address] [place] [address] documented as of this encounter Goals Goal [...] Zones/Action plan education. I will notify my Community Action Worker if my symptoms fall in the [...] 04/20/2022 04/20/2022 04/30/2022 12:1 8 AM DIRECTOR TRIAL COVID - 19 07/18/2022 07/18/2022 07/28/2022 12:1 6 AM DIRECTOR TRIAL COVID - 19 08/21/2022 08/21/2022 08/22/2022 8:31 AM CDT Respiratory Rule Out - RPA 08/21/2022 08/21/2022 0 08/22/2022 3:21 PM CDT COVID - 19 04/18/2023 04/18/2023 04/28/2023 12:1 6 AM DIRECTOR TRIAL COVID - 19 07/13/2023 07/13/2023 07/23/2023 12:1 6 AM DIRECTOR TRIAL Respiratory Rule Out - RPA 03/17/2024 03/17/2024 1 3:36 PM CDT COVID - 19 04/27/2024 04/27/2024 04/27/2024 2:19 PM DIRECTOR TRIAL Respiratory Rule-Out 07/24/2024 07/24/2024 025 2:29 PM DIRECTOR TRIAL COVID - 19 07/24/2024 07/24/2024 07/24/2024 2:29 PM DIRECTOR TRIAL Assessment Noted Time PHQ-9 Depression Total Score: 1 03/07/20 21 10:29 AM CDT documented as of this encounter Care Teams Chief Psychology Relationship Specialty Start Date End Date Keith Craft MD PCP - General Family Medicine 01/14/19 12/26/23 Liz Capellan DO [address] [facility] [address] [address] PCP - General Family Medicine 12/27/23 Quang Locke DO Gastroenterology 01/18/16 Bri Rollins, RN [place] Community Action Worker 03/07/21 05/22/23 [place] [address] [address] 05/25/21 Bri Rollins RN [place] Nurse Community Action Worker 03/07/21 05/23/23 Werner Swift MD #2 [place] [address] Consulting Physician Pulmonary Disease 01/30/22 Yasmin Restrepo MD #[address] [address] Consulting Physician Endocrinology 07/20/24 documented as of this encounter
--- OUTSIDE RECORDS SUMMARY | 2024-08-16 19:30 | XMS_ITS | Encounter Summary ---
Author Organization [facility] Address [address] [place] [address] Phone Care Team Providers Care Web Developer Programmer Name Role Phone Quang Locke DO Unavailable [phone] Keith Craft MD Primary Care Provider [phone] Bri Rollins RN Unavailable Unavailable Silvio Schulte MD Unavailable [phone] Bri Rollins RN Unavailable Unavailable Werner Swift MD Unavailable Liz Capellan DO Primary Care Provider [phone] Yasmin Restrepo MD Unavailable Reason for Visit * Reason Comments Medication Refill Encounter Details Date Type Department Care Team (Late st Contact Info) Description 04/18/2022 Refill [facility] #2 [place] [address] Keith Craft MD #1 [place] [address] Medication Refill Social History Tobacco Use Types [...] Coronavirus/COVID-19? No / Unsure 04/20/2022 1:05 PM REPAIRER PUMP documented as of this encounter Miscellaneous Notes [...] 03/02/22 Procedure Visit [facility] 03/02/22 Office Visit Keith rCaft MD [facility] 11/03/21 Office Visit Keith Craft MD [facility] 10/19/21 Office Visit Keith Craft MD [facility] Showing recent visits within past 182 days and meeting all other requirements Future Appointments Date Type Provider Dept 06/04/22 Appointment Keith Craft MD [facility] Showing future appointments within next 90 days and meeting all other requirements Passed - Has an encounter in the past 6 months with a depression or anxiety visit diagnosis IRER PUMP documented in this encounter Plan of Treatment Upcoming Encounters Date Type Department Care Team (Late st Contact Info) Description 08/27/2024 1:15 PM CDT Office Visit [facility] - Endocrinology - [place] #2 [place] [address] Yasmin Restrepo MD #[address] [address] 09/02/2024 2:00 PM CDT Appointment [facility] Respiratory Therapy 1 [place] [address] Werner Swift MD #2 [place] [address] Discharge Disposition: Discharged to home or Selfcare 10/08/2024 1:40 PM CDT Office Visit [facility] - Family Medicine - [place] #2 [place] [address] Liz Capellan, DO [address] [address] 11/16/2024 1:00 PM CDT Office Visit [facility] - Pulmonology & Sleep Medicine [facility] #2 [place] [address] Werner Swift MD #2 [place] [address] documented as of this encounter Goals Goal [...] Zones/Action plan education. I will notify my Route Carrier if my symptoms fall in the y [...] 19 04/20/2022 04/20/2022 04/30/2022 12:1 8 AM REPAIRER PUMP COVID - 19 07/18/2022 07/18/2022 07/28/2022 12:1 6 AM REPAIRER PUMP COVID - 19 08/21/2022 08/21/2022 08/22/2022 8:31 AM CDT Respiratory Rule Out - RPA 08/21/2022 08/21/2022 0 08/22/2022 3:21 PM CDT COVID - 19 04/18/2023 04/18/2023 04/28/2023 12:1 6 AM REPAIRER PUMP COVID - 19 07/13/2023 07/13/2023 07/23/2023 12:1 6 AM REPAIRER PUMP Respiratory Rule Out - RPA 03/17/2024 03/17/2024 1 3:36 PM CDT COVID - 19 04/27/2024 04/27/2024 04/27/2024 2:19 PM REPAIRER PUMP Respiratory Rule-Out 07/24/2024 07/24/2024 025 2:29 PM REPAIRER PUMP COVID - 19 07/24/2024 07/24/2024 07/24/2024 2:29 PM REPAIRER PUMP Assessment Noted Time PHQ-9 Depression Total Score: 1 03/07/20 21 10:29 AM CDT documented as of this encounter Care Teams Web Developer Programmer Relationship Specialty Start Date End Date Keith Craft MD PCP - General Family Medicine 01/14/19 12/26/23 Liz Capellan DO [address] [address] PCP - General Family Medicine 12/27/23 Quang Locke DO Gastroenterology 01/18/16 Bri Rollins, RN [place] Route Carrier 03/07/21 05/22/23 [place] [id number] [address] 05/25/21 Bri Rollins, RN [place] Nurse Route Carrier 03/07/21 05/23/23 Werner Swift MD #2 [place] [address] Consulting Physician Pulmonary Disease 01/30/22 Yasmin Restrepo MD #[address] [phone] Consulting Physician Endocrinology 07/20/24 documented as of this encounter
--- OUTSIDE RECORDS SUMMARY | 2024-08-16 19:30 | XMS_ITS | Encounter Summary ---
Author Organization [facility] Address [address] [place] [address] Phone Care Team Providers Care Telegraph Service Clerk Name Role Phone Quang Locke DO Unavailable [phone] Keith Craft MD Primary Care Provider [phone] Bri Rollins RN Unavailable Unavailable Silvio Schulte MD Unavailable [phone] Bri Rollins RN Unavailable Unavailable Werner Swift MD Unavailable Liz Capellan DO Primary Care Provider [phone] Yasmin Restrepo MD Unavailable Reason for Visit * Reason Comments Medication Refill Encounter Details Date Type Department Care Team (Late st Contact Info) Description 01/04/2021 Refill [facility] #2 [place] [address] Keith Craft MD #1 [place] [address] Medication Refill Social History Tobacco Use Types [...] Office Visit [facility] - Endocrinology [facility] #2 [place] [phone] Yasmin Restrepo MD #[address] [phone] 09/02/2024 2:00 PM CDT Appointment [facility] Respiratory Therapy 1 [place] [address] Werner Swift MD #2 [place] [address] Discharge Disposition: Discharged to home or Selfcare 10/08/2024 1:40 PM CDT Office Visit [facility] - Family Medicine - [place] [address] [place] [address] Liz Capellan, DO [address] [facility]. [address] [place] [address] 11/16/2024 1:00 PM CDT Office Visit [facility] - Pulmonology & Sleep Medicine - [place] #[address] [place] [address] Werner Swift MD #2 [place] [address] documented as of this encounter Visit Diagnoses Diagnosis Anxiety and depression Dysthymic disorder documented in this encounter Additional Health Concerns Infection Onset Date Last Indicated Resolved Time COVID - 19 01/25/2021 01/25/2021 01/31/2021 8:10 AM CDT Respiratory Rule Out - RPA 01/30/2021 01/30/2021 0 02/01/2021 12:45 AM CDT COVID - 19 07/23/2021 07/23/2021 07/24/2021 6:31 AM COUNSELING AIDE COVID - 19 10/19/2021 10/19/2021 10/20/2021 7:45 AM CDT Respiratory Rule Out - RPA 10/19/2021 10/19/2021 0 10/20/2021 2:10 PM CDT Stenotrophomonas maltophilia Comment:Must have a follow up respiratory sample to remove isolation flag. 10/20/2021 10/20/2021 COVID - 19 04/20/2022 04/20/2022 04/30/2022 12:1 8 AM COUNSELING AIDE COVID - 19 07/18/2022 07/18/2022 07/28/2022 12:1 6 AM COUNSELING AIDE COVID - 19 08/21/2022 08/21/2022 08/22/2022 8:31 AM CDT Respiratory Rule Out - RPA 08/21/2022 08/21/2022 0 08/22/2022 3:21 PM CDT COVID - 19 04/18/2023 04/18/2023 04/28/2023 12:1 6 AM COUNSELING AIDE COVID - 19 07/13/2023 07/13/2023 07/23/2023 12:1 6 AM COUNSELING AIDE Respiratory Rule Out - RPA 03/17/2024 03/17/2024 1 3:36 PM CDT COVID - 19 04/27/2024 04/27/2024 04/27/2024 2:19 PM COUNSELING AIDE Respiratory Rule-Out 07/24/2024 07/24/2024 025 2:29 PM COUNSELING AIDE COVID - 19 07/24/2024 07/24/2024 07/24/2024 2:29 PM COUNSELING AIDE Assessment Noted Time PHQ-9 Depression Total Score: 2 06/07/19 2:34 PM COUNSELING AIDE documented as of this encounter Care Teams Telegraph Service Clerk Relationship Specialty Start Date End Date Keith Craft MD PCP - General Family Medicine 01/14/19 12/26/23 Liz Capellan DO [address] [id number] PCP - General Family Medicine 12/27/23 Quang Locke DO Gastroenterology 01/18/16 Bri Rollins, KATEY [place] Time Cycle Operator 03/07/21 05/22/23 [place] [address] [address] 05/25/21 Bri Rollins RN [place] Nurse Time Cycle Operator 03/07/21 05/23/23 Werner Swift MD #2 [place] [address] Consulting Physician Pulmonary Disease 01/30/22 Yasmin Restrepo MD #[address] [address] Consulting Physician Endocrinology 07/20/24 documented as of this encounter
--- OUTSIDE RECORDS SUMMARY | 2024-08-16 19:30 | XMS_ITS | Encounter Summary ---
Author Organization [facility] Address [address] [place] [address] Phone Care Team Providers Care Senior Paralegal Name Role Phone Quang Locke DO Unavailable [phone] Keith Craft MD Primary Care Provider [phone] Silvio Schulte MD Unavailable [phone] Werner Swift MD Unavailable Liz Capellan DO Primary Care Provider [phone] Yasmin Restrepo MD Unavailable Encounter Details Date Type Department Care Team (Late st Contact Info) Description 08/12/2023 Lab Requisition [facility] Laboratory Services 1 [place] [address] Keith Craft MD #1 [place] [address] Urinary tract infection, site not specified Social History Tobacco Use Types Packs/Day Years Used Date Smoking Tobacco: Former Cigarettes 2 50 1 - 03/16/2018 Smokeless Tobacco: Never Comments:Still uses nictoine patches and gum Alcohol Use Standard Drinks/Week Comments No 0 (1 standard drink = 0.6 oz pur e alcohol) [facility] Utilities Answer Date [...] often do you attend chur ch or buddhist services? Never 07/13/2023 Do you belong to [...] Score - Questions 1-9 0 /0 08/2021 [facility]ational Stress Questionnaire Answer Date [...] place to sleep or slept in a halfway (including now)? No 07/13/2023 Education Answer Date [...] Description 08/27/2024 1:15 PM CDT Office Visit [facility] - Endocrinology [facility] #2 [facility] [phone] Yasmin Restrepo MD #2 [facility] [address] [place] [address] 09/02/2024 2:00 PM CDT Appointment [facility] Respiratory Therapy 1 [place] [address] Werner Swift MD #2 [place] [address] Discharge Disposition: Discharged to home or Selfcare 10/08/2024 1:40 PM CDT Office Visit [facility] - Family Medicine [facility] #2 [place] [address] Liz Capellan, DO 2 [facility] [address] [place], [place] [phone] 11/16/2024 1:00 PM CDT Office Visit [facility] - Pulmonology & Sleep Medicine [facility] #2 [place] [address] Werner Swift MD #2 [place] [address] documented as of this encounter Goals Goal [...] Zones/Action plan education. I will notify my Materials Buyer if my symptoms fall in the y [...] RESULTS ESCHERICHIA COLI 08/14/2023 3:30 PM CDT [facility] Comment:PRESUMPTIVE IDENTIFI CATION Culture URINE SPECIMEN / [...] MICROBIOLOGY - GENERAL ORDERABLE S Final Result [facility] [address] [place] [address], * (ABNORMAL) URINALYSIS REFLEX IF INDICATED BY ABNORMAL RESULTS (08/12/2023 1:05 PM CDT) SPECIFIC GRAVITY 1.015 1.003 - 1.030 08/12/2023 1:44 PM CDT [facility] PH 6.0 5.0 - 9.0 08/12/2023 1:44 PM CDT [facility] WBC ESTERASE 500 /uL(A) Negative 08/12/2023 1:44 PM CDT [facility] NITRITE Negative Negative 08/12/2023 1:44 PM CDT [facility] PROTEIN, RANDOM URINE 100 mg/dL(A) Negative 08/12/2023 1:44 PM CDT [facility] URINE GLUCOSE, QUAL 1000 mg/dL(A) Negative 08/12/2023 1:44 PM CDT [facility] URINE KETONES Negative Negative 08/12/2023 1:44 PM CDT [facility] UROBILINOGEN Normal Normal mg/dL 08/12/2023 1:44 PM CDT [facility] URINE BLOOD 50 /uL(A) Negative bharathi/ul 08/12/2023 1:44 PM CDT [facility] URINALYSIS COLOR Yellow 08/12/19 24 1:44 PM CDT [facility] URINALYSIS CLARITY Very Cloudy 08/12/2023 1:44 PM CDT [facility] WBC (Urine) Packed(A) Negative, 0-5 /hpf 08/12/2023 1:44 PM CDT [facility] URINE RBC'S 0-2 Negative, 0-2 /hpf 08/12/2023 1:44 PM CDT [facility] EPITHELIAL CELLS Negative /lpf 08/12/19 1:44 PM CDT [facility] BACTERIA, URINE Many(A) Negative /hpf 08/12/2023 1:44 PM CDT [facility] Urine Non-Phlebotomy Collection / Unknown 08/12/2023 1:05 PM CDT 08/12/2023 1:29 PM CDT us Keith Craft MD URINE ORDERABLES Final Result [facility] #1 [place] [address] documented in this encounter Visit Diagnoses Diagnosis Urinary tract infection, site not specified documented in this encounter Additional Health Concerns Infection Onset Date Last Indicated Resolved Time Stenotrophomonas maltophilia Comment:Must have a follow up respiratory sample to remove isolation flag. 10/20/2021 10/20/2021 Respiratory Rule Out - RPA 03/17/2024 03/17/2024 1 3:36 PM CDT COVID - 19 04/27/2024 04/27/2024 04/27/2024 2:19 PM WEAVE DEFECT CHARTING CLERK Respiratory Rule-Out 07/24/2024 07/24/2024 025 2:29 PM WEAVE DEFECT CHARTING CLERK COVID - 19 07/24/2024 07/24/2024 07/24/2024 2:29 PM WEAVE DEFECT CHARTING CLERK Assessment Noted Time PHQ-9 Depression Total Score: 1 03/07/20 21 10:29 AM CDT documented as of this encounter Care Teams Senior Paralegal Relationship Specialty Start Date End Date Keith Craft MD PCP - General Family Medicine 01/14/19 12/26/23 Liz Capellan DO 2 [facility] [address] [place], [place] [phone] PCP - General Family Medicine 12/27/23 Quang Locke DO Gastroenterology 01/18/16 [place] [address] [address] 05/25/21 Werner Swift MD #2 [place] [address] Consulting Physician Pulmonary Disease 01/30/22 Yasmin Restrepo MD #[address] [phone] Consulting Physician Endocrinology 07/20/24 documented as of this encounter
--- OUTSIDE RECORDS SUMMARY | 2024-08-16 19:30 | XMS_ITS | Encounter Summary ---
Author Organization [facility] Address [address] [place] [address] Phone Care Team Providers Care Apprentice Stylist Name Role Phone Quang Locke DO Unavailable [phone] Keith Craft MD Primary Care Provider [phone] Bri Rollins RN Unavailable Unavailable Silvio Schulte MD Unavailable [phone] Bri Rollins RN Unavailable Unavailable Werner Swift MD Unavailable Liz Capellan DO Primary Care Provider Yasmin Restrepo MD Unavailable Reason for Visit * Reason Comments Medication Refill Encounter Details Date Type Department Care Team (Late st Contact Info) Description 10/30/2022 Refill [facility] - Family Medicine [facility] #2 [place] [address] Keith Craft MD #1 [place] [address] Medication Refill Social History Tobacco Use Types [...] Dept 09/10/22 Office Visit Keith Craft MD [facility] 07/18/22 Office Visit Kerri Kauffman, PRESCHOOL ASSISTANT DIRECTOR, PRODUCTION MACHINE TENDER [facility] Office Visit [facility] 03/02/22 Procedure Visit [facility] 03/02/22 [facility] 11/03/21 Office Visit Keith Craft MD [facility] Showing recent visits within past 365 days and meeting all other requirements Future Appointments Date Type Provider Dept 12/10/22 Appointment Keith Craft MD [facility] Showing future appointments within next 90 days [...] [facility] 07/18/22 Office Visit Kerri Kauffman APRN, PRODUCTION MACHINE TENDER [facility] 06/07/22 Office Visit Keith Craft MD [facility] 03/02/22 Procedure Visit [facility] 03/02/22 Office Visit Keith Craft MD [facility] 11/03/21 Office Visit Keith Craft MD [facility] Showing recent visits within past 365 [...] [facility] 07/18/22 Office Visit Kerri Kauffman PRESCHOOL ASSISTANT DIRECTOR, PRODUCTION MACHINE TENDER [facility] 06/07/22 Office Visit Keith Craft MD [facility] 03/02/22 Procedure Visit [facility] 03/02/22 Office Visit Keith Craft MD [facility] 11/03/21 Office Visit Keith Craft MD [facility] Showing recent visits within past 365 days and meeting all other requirements Future Appointments Date Type Provider Dept 12/10/22 Appointment Keith Craft MD [facility] Showing future appointments within next 90 days and meeting all other requirements documented in this encounter Plan of Treatment Upcoming Encounters Date Type Department Care Team (Late st Contact Info) Description 08/27/2024 1:15 PM CDT Office Visit [facility] - Endocrinology - [place] #2 [place] [address] Yasmin Restrepo MD #[address] [phone] 09/02/2024 2:00 PM CDT Appointment [facility] Respiratory Therapy 1 [place] [address] Werner Swift MD #2 [place] [address] Discharge Disposition: Discharged to home or Selfcare 10/08/2024 1:40 PM CDT Office [facility] - Family Medicine - [place] #2 [facility] [place] [address] Liz Capellan, DO [address] [address] 11/16/2024 1:00 PM CDT Office Visit [facility] - Pulmonology & Sleep Medicine - [place] #2 [place] [address] Werner Swift MD #2 [place] [address] documented as of this encounter Goals Goal [...] Zones/Action plan education. I will notify my Field Service Representative if my symptoms fall in the [...] 19 04/18/2023 04/18/2023 04/28/2023 12:1 6 AM FREE LANCE ARTIST COVID - 19 07/13/2023 07/13/2023 07/23/2023 12:1 6 AM FREE LANCE ARTIST Respiratory Rule Out - RPA 03/17/2024 03/17/2024 1 3:36 PM CDT COVID - 19 04/27/2024 04/27/2024 04/27/2024 2:19 PM FREE LANCE ARTIST Respiratory Rule-Out 07/24/2024 07/24/2024 025 2:29 PM FREE LANCE ARTIST COVID - 19 07/24/2024 07/24/2024 07/24/2024 2:29 PM FREE LANCE ARTIST Assessment Noted Time PHQ-9 Depression Total Score: 1 03/07/20 21 10:29 AM CDT documented as of this encounter Care Teams Apprentice Stylist Relationship Specialty Start Date End Date Keith Craft MD PCP - General Family Medicine 01/14/19 12/26/23 Liz Capellan DO [address] [address] PCP - General Family Medicine 12/27/23 Quang Locke DO Gastroenterology 01/18/16 Bri Rollins, RN [place] Field Service Representative 03/07/21 05/22/23 [place] [address] [address] 05/25/21 Bri Rollins, RN [place] Nurse Field Service Representative 03/07/21 05/23/23 Werner Swift MD #2 [place] [address] Consulting Physician Pulmonary Disease 01/30/22 Yasmin Restrepo MD #[address] [address] Consulting Physician Endocrinology 07/20/24 documented as of this encounter
--- OUTSIDE RECORDS SUMMARY | 2024-08-16 19:30 | XMS_ITS | Encounter Summary ---
Author Organization [facility] Address [address] [place] [address] Phone Care Team Providers Care Monument Carver Name Role Phone Quang Locke DO Unavailable [phone] Keith Craft MD Primary Care Provider [phone] Bri Rollins RN Unavailable Unavailable Silvio Schulte MD Unavailable [phone] Bri Rollins RN Unavailable Unavailable Werner Swift MD Unavailable Liz Capellan DO Primary Care Provider [phone] Yasmin Restrepo MD Unavailable Reason for Visit * Reason Comments Medication Refill Encounter Details Date Type Department Care Team (Late st Contact Info) Description 02/25/2021 Refill [facility] Medicine [facility] #2 [place] [phone] Brie Denis PAC #2 [place] [address] Medication Refill Social History Tobacco Use Types [...] [place] 10/04/20 Office Visit Keith Craft MD [facility] [place] Showing recent visits within past 182 days and meeting all other requirements Future Appointments Date Type Provider Dept 04/14/21 Appointment Keith Craft MD [facility] Showing future appointments within next 90 days and meeting all other requirements Passed - Has an encounter in the past 6 months with a depression or anxiety visit diagnosis documented in this encounter Plan of Treatment Upcoming Encounters Date Type Department Care Team (Late st Contact Info) Description 08/27/2024 1:15 PM CDT Office Visit [facility] - Endocrinology [facility] #2 [place] [address] Yasmin Restrepo MD #[address] [phone] 09/02/2024 2:00 PM CDT Appointment [facility] Respiratory Therapy 1 [place] [address] Werner Swift MD #2 [place] [address] Discharge Disposition: Discharged to home or Selfcare 10/08/2024 1:40 PM CDT Office Visit [facility] Family Medicine [facility] #2 [place] [address] Liz Capellan, DO [address] [address] 11/16/2024 1:00 PM CDT Office Visit [facility] - Pulmonology & Sleep Medicine [facility] #2 [place] [address] Werner Swift MD #2 [place] [address] documented as of this encounter Visit Diagnoses Diagnosis Anxiety Anxiety state, unspecified documented in this encounter Additional Health Concerns Infection Onset Date Last Indicated Resolved Time COVID - 19 07/23/2021 07/23/2021 07/24/2021 6:31 AM SUPPLEMENTAL NURSE COVID - 19 10/19/2021 10/19/2021 10/20/2021 7:45 AM CDT Respiratory Rule Out - RPA 10/19/2021 10/19/2021 0 10/20/2021 2:10 PM CDT Stenotrophomonas maltophilia Comment:Must have a follow up respiratory sample to remove isolation flag. 10/20/2021 10/20/2021 COVID - 19 04/20/2022 04/20/2022 04/30/2022 12:1 8 AM SUPPLEMENTAL NURSE COVID - 19 07/18/2022 07/18/2022 07/28/2022 12:1 6 AM SUPPLEMENTAL NURSE COVID - 19 08/21/2022 08/21/2022 08/22/2022 8:31 AM CDT Respiratory Rule Out - RPA 08/21/2022 08/21/2022 0 08/22/2022 3:21 PM CDT COVID - 19 04/18/2023 04/18/2023 04/28/2023 12:1 6 AM SUPPLEMENTAL NURSE COVID - 19 07/13/2023 07/13/2023 07/23/2023 12:1 6 AM SUPPLEMENTAL NURSE Respiratory Rule Out - RPA 03/17/2024 03/17/2024 1 3:36 PM CDT COVID - 19 04/27/2024 04/27/2024 04/27/2024 2:19 PM SUPPLEMENTAL NURSE Respiratory Rule-Out 07/24/2024 07/24/2024 025 2:29 PM SUPPLEMENTAL NURSE COVID - 19 07/24/2024 07/24/2024 07/24/2024 2:29 PM SUPPLEMENTAL NURSE Assessment Noted Time PHQ-9 Depression Total Score: 0 02/04/20 21 11:12 AM CDT documented as of this encounter Care Teams Monument Carver Relationship Specialty Start Date End Date Keith Craft MD PCP - General Family Medicine 01/14/19 12/26/23 Liz Capellan DO 2 [facility] [address] [facility]. [address] [place] [address] PCP - General Family Medicine 12/27/23 Quang Locke DO Gastroenterology 01/18/16 Bri Rollins, RN [place] Literacy Education Professor 03/07/21 05/22/23 [place] [address] [address] 05/25/21 Bri Rollins RN [place] Nurse Literacy Education Professor 03/07/21 05/23/23 Werner Swift MD #2 [facility] [place] [address] Consulting Physician Pulmonary Disease 01/30/22 Yasmin Restrepo MD [address] [address] Consulting Physician Endocrinology 07/20/24 documented as of this encounter
--- OUTSIDE RECORDS SUMMARY | 2024-08-16 19:30 | XMS_ITS | Encounter Summary ---
Author Organization [facility] Address [address] [place] [address] Phone Care Team Providers Care Non Destructive Testing Specialist Name Role Phone Quang Locke Oswaldo PRESLEY Unavailable [phone] Silvio Schulte MD Unavailable [phone] Werner Swift MD Unavailable Liz Capellan DO Primary Care Provider [phone] Yasmin Restrepo MD Unavailable Reason for Visit * Reason Onset Date Comments Advice Only 07/09/2024 Cough 07/09/2024 Encounter Details Date Type Department Care Team (Late st Contact Info) Description 07/09/2024 Nurse Triage [facility] [address] [place] [address] Liz Capellan, DO [address] [address] Advice Only; Cough Social History Tobacco Use Types Packs/Day Years Used Date Smoking Tobacco: Former Cigarettes 2 50 1 - 03/16/2018 Smokeless Tobacco: Never Comments:Still uses nictoine patches and gum Alcohol Use Standard Drinks/Week Comments No 0 (1 standard drink = 0.6 oz pur e alcohol) [facility] Utilities Answer Date Recorded In the [...] declined 04/27/2024 How often do you attend mandaen or mormon serv ices? Patient declined 04/27/2024 Do you belong to any clubs o r organizations such as mandaen groups, unions, fraternal or athletic groups, or [...] Total Score - Questions 1-9 0 06/27 [facility] - [...] any time in the past 12 m [facility], were you homeless or living in a group home (including now)? Patient declined 04/27/2024 Education Answer [...] Adrianna Solitario RN - 07/09/2024 9:23 AM ENGINEER BOOSTER AND EXHAUSTER SITUATION: Cough BACKGROUND: Patient contacting PCP office. [...] needing to talk to patient please call [phone] Encounter routed to provider high priority to notify. Please send [employer] message with provider advice on recommendations. Discussed utilizing [employer] to: discuss if they would prefer a [employer] message or phone call response - See [...] Disposition Wheezing is present Protocols used: Cough-A-OH NEER BOOSTER AND EXHAUSTER * Telephone Encounter - Becca Stoll - 07/09/2024 9:22 AM CST Symptom: Cough Outcome: Transfer to punch machine hand queue Reason: Wheezing (high-pitched whistling sound) The caller accepted this outcome. Caller Denied: * Struggling for each breath (severe trouble breathing) * Choked on something [employer] BOOSTER [employer] EXHAUSTER documented in this encounter Plan of Treatment Upcoming Encounters Date Type Department Care Team (Late st Contact Info) Description 08/27/2024 1:15 PM CDT Office Visit [facility] - Endocrinology - [place] [address] [place] [phone] Yasmin Restrepo MD [address] [phone] 09/02/2024 2:00 PM CDT Appointment [facility] [address] [place] [phone] Werner Swift MD [address] [place] [address] Discharge Disposition: Discharged to home or Selfcare 10/08/2024 1:40 PM CDT Office Visit [facility] - Family Medicine - [place] [address] [place] [address] Liz Capellan, DO [address] [address] 11/16/2024 1:00 PM CDT Office Visit [facility] - Pulmonology & Sleep Medicine - [place] [address] [place] [phone] Werner Swift MD [address] [place] [address] documented as of this encounter Goals Goal [...] plan education. I will notify my Materials Scientist if my symptoms fall in the y [...] isolation flag. 10/20/2021 10/20/2021 Respiratory Rule-Out 07/24/2024 07/24/202407/24/2 025 2:29 PM ENGINEER BOOSTER AND EXHAUSTER COVID - 19 07/24/2024 07/24/2024 07/24/2024 2:29 PM ENGINE[employer] EXHAUSTER Assessment Noted Time PHQ-9 Depression Total Score: 4 11/08/19 24 9:33 AM CDT documented as of this encounter Care Teams Non Destructive Testing Specialist Relationship Specialty Start Date End Date Liz Capellan DO [address] [address] PCP - General Family Medicine 12/27/23 Quang Locke DO Gastroenterology 01/18/16 [place] [id number] [address] 05/25/21 Werner Swift MD [address] [place] [phone] Consulting Physician Pulmonary Disease 01/30/22 Yasmin Restrepo MD [address] [phone] Consulting Physician Endocrinology 07/20/24 documented as of this encounter
--- OUTSIDE RECORDS SUMMARY | 2024-08-16 19:30 | XMS_ITS | CONTINUITY OF CARE DOCUMENT ---
Author Name roger duran Address Unknown Organization [facility] Address [address] [place] [address] Phone [phone] Care Team Providers Care Civil Service Clerk Name Role Phone Eris COLBERT, Silvio Unavailable Allison Robles MD Unavailable [phone] Allison Robles MD Unavailable [phone] PROBLEMS Condition Status Date Provider Notes Cerebral atherosclerosis active Hoa Rodriguez t no cva ct Pulmonary nodule active Hoa Galloway Hypoalbuminemia active Hoa Galloway neg uac r Cough chronic- per pt active Camacho Romo RN Hypertriglyceridemia active Silvio Benitez BACK PAIN;CHRONIC;t11 compressoin active Silvio Schulte MD DIABETES MELLITUS active Silvio Schulte MD Hyperlipidemia;with high crp andlow lpa active Silvio Schulte MD TOBACCO ABUSE completed - Silvio Schulte MD HYPOTHYROIDISM; active Silvio Schulte MD COPD active Silvio Schulte MD B12 DEFICIENCY;ON RX great;macrocytlis active Silvio Schulte MD nml folate VITAMIN D DEFICIENCY;ON RX PER PRIMARY active Silvio Schulte MD PEPTIC ULCER DISEASE active Silvio Benitez DIVERTICULOSIS, COLON active Silvio Schulte MD CHF completed - Silvio Schulte MD r/o Sleep apnea;neg home study completed - Silvio Schulte MD OBESITY;HAPPY WITH OWN WEIGHT completed - Silvio Schulte MD Diastolic chf active Silvio Schulte MD lowes t 35, no cad by cath, on jarciance and entrsot ISCHEMIA;NO CAD BY CATH 14 completed 06/12 - Silvio Schulte MD VENOUS INSUFFICIENCY;NEG US 14 completed - Silvio Schulte MD PALPITATIONS;EVENT PENDING completed 06/25 - Silvio Schulte MD HYPOKALEMIA;3.3 14;will rx completed 07/30 - Silvio Schulte MD Abnormal chest xray completed - Silvio Schulte MD PULMONARY HYPERTENSION, SECONDARY;PAP 40 completed - Silvio Schulte MD S/P DC AICD - BIOTRONIK//Gen change DC ICD Biotronik 06/15/24 ( Not MRI safe/Linox S 60 Lead) active Bettye Mcdermottan Hyponatremia completed - Silvio Schulte MD CHF; completed - Parth Olivera MD Hemiblock, left anterior active Silvio easton MD Carotid artery disease active Silvio Schulte MD 1. Mild plaque with less than 50% stenosis of the internal carotid arteries bilaterally. r/o Pulmonary embolism and infarction;neg ct 15 and 16 completed - Silvio Schulte MD PVC's active Silvio Schulte MD CHF completed - Silvio Schulte MD CCM enroll Anemia, iron deficiency active Hoa Galloway Hiatal hernia active Silvio Schulte MD fatty liver active Silvio Schulte MD Pneumonia completed - Silvio Schulte MD GERD active Silvio Schulte MD Low blood pressure completed - Silvio Schulte MD Tobacco use, quit active Silvio Schulte MD Neuropathy active Silvio Schulte MD Macrocytosis completed - Silvio Schulte MD Renal disease, chronic, mild;neg us and duplex active Silvio Schulte MD neg uacr , on kerinda and sglft 2 arb Screening active Silvio matta aford gianfranco score, Exposure to SARS-associated coronavirus;neg igg and had vaccine active Barb Montemayor DIRECTOR POWER Aortic atherosclerosis active Silvio Schulte MD Valvular heart disease completed 5 - Silvio Schulte MD Edema;bilateral aggarwal thruner completed 2021 - Silvio Schulte MD Venous insufficiency and maet thruner active Silvio Schulte MD not fixable per shamin Shortness of breath completed - Silvio Schulte MD Overweight completed - Silvio Schulte MD Tobacco abuse- hx quite 5 yrs ago completed - Silvio Schulte MD ENCOUNTERS Date Type Provider Location Encounter Diag nosis 6 - 6 In-person encounter Office Visit Lenny Razo [facility] 5 - 5 In-person encounter Office Visit Silvio Schulte [facility] Screening 1 - 1 In-person encounter Office Visit Silvio Schulte [facility] DIABETES MELLITUSOverweight 8 - 8 In-person encounter Office Visit Silvio Schulte MD [facility] Diastolic chfRenal disease, chronic, mild;neg us and duplexTobacco abuse- hx quite 5 yrs ago 0 - 0 In-person encounter Office Visit Silvio Schulte [facility] Renal disease, chronic, mild;neg us and duplex 2 - 2 In-person encounter Office Visit Silvio Schulte MD [facility] DIABETES MELLITUSDiastolic chfPneumoniaScreeningValvular heart diseaseEdema;bilateral aggarwal thrunerVenous insufficiency and maet thrunerShortness of breath 4 - 4 In-person encounter Office Visit Luis F Frausto MD [facility] 0 - 0 In-person encounter Office Visit Luis F Frausto MD [facility] Venous insufficiency and maet thruner 8 - 8 In-person encounter Office Visit Silvio Schulte MD [facility] HyponatremiaScreeningEdema;bilate ral aggarwal thruner 7 - 7 In-person encounter Office Visit Silvio Schulte MD [facility] Exposure to SARS-associated coronavirus;neg igg and had vaccine 1 - 1 In-person encounter Office Visit Silvio Schulte MD [facility] 9 - 9 In-person encounter Office Visit Silvio Schulte MD [facility] Exposure to SARS-associated coronavirus;neg igg and had vaccine 8 - 8 In-person encounter Office Visit Silvio Schulte MD [facility] r/o Sleep apnea;neg home studyDiastolic chfVENOUS INSUFFICIENCY;NEG US 14r/o Pulmonary embolism and infarction;neg ct 15 and 16Tobacco use, quitMacrocytosisRenal disease, chronic, mild;neg us and duplexScreeningExposure to SARS-associated coronavirus;neg igg and had vaccineAortic atherosclerosis 3 - 3 In-person encounter Office Visit Silvio Schulte MD [facility] 3 - 3 In-person encounter Office Visit Leighton Reza MD [facility] S/P DC AICD - BIOTRONIK//Gen change DC ICD Biotronik 06/15/24 ( Not MRI safe/Linox S 60 Lead) 6 - 2 In-person encounter Office Visit Leighton Reza MD [facility] 2 - 2 In-person encounter Office Visit Silvio Schulte MD [facility] Hyponatremia 8 - 8 In-person encounter Office Visit Silvio Schulte MD [facility] Low blood pressure 9 - 9 In-person encounter Office Visit Silvio Schulte MD [facility] Tobacco use, quit 5 - 5 In-person encounter Office Visit Silvio Schulte MD [facility] Abnormal chest xrayNeuropathy 7 - 7 In-person encounter Office Visit Silvio Schulte MD [facility] TOBACCO ABUSECOPDGERDTobacco use, quit 2 - 9 In-person encounter Office Visit Farhad Ewing MD [facility] 6 - 2 In-person encounter Office Visit Farhad Ewing MD [facility] 7 - 7 In-person encounter Office Visit Silvio Schulte MD [facility] HYPOTHYROIDISM;r/o Sleep apnea;neg home studyHyponatremiaCHFAnemia, iron deficiencyHiatal herniafatty liver 0 - 0 In-person encounter Office Visit Parth Olivera MD [facility] CHF;CHF 0 - 0 In-person encounter Office Visit Silvio Schulte MD [facility] VITAMIN D DEFICIENCY;ON RX PER PRIMARYDiastolic chfS/P DC AICD - BIOTRONIK//Gen change DC ICD Biotronik 06/15/24 ( Not MRI safe/Linox S 60 Lead)PVC's 7 - 7 In-person encounter Office Visit Silvio Schulte MD [facility] Hyperlipidemia;with high crp andlow lpaDiastolic chfISCHEMIA;NO CAD BY CATH 14HYPOKALEMIA;3.3 14;will rxPULMONARY HYPERTENSION, SECONDARY;PAP 40Hemiblock, left anteriorCarotid artery diseaser/o Pulmonary embolism and infarction;neg ct 15 and 16 8 - 8 In-person encounter Office Visit Silvio Schulte MD [facility] Hyperlipidemia;with high crp andlow [id number] DEFICIENCY;ON RX great;macrocytlisVITAMIN D DEFICIENCY;ON RX PER PRIMARYOBESITY;HAPPY WITH OWN WEIGHTDiastolic chfPALPITATIONS;EVENT PENDINGAbnormal chest xrayS/P DC AICD - BIOTRONIK//Gen change DC ICD Biotronik 06/15/24 ( Not MRI safe/Linox S 60 Lead)CHF; 0 - 0 In-person encounter Office Visit Lenny Razo MD [facility] 6 - 6 In-person encounter Office Visit Silvio Schulte MD [facility] r/o Sleep apnea;neg home studyDiastolic chfHYPOKALEMIA;3.3 14;will rxAbnormal chest xray 0 - 0 In-person encounter Office Visit Silvio Schulte MD [facility] Hyperlipidemia;with high crp andlow lpaHYPOTHYROIDISM;B12 DEFICIENCY;ON RX great;macrocytlisr/o Sleep apnea;neg home studyPALPITATIONS;EVENT PENDING 3 - 3 In-person encounter Office Visit Silvio Schulte MD [facility] In Patient 6 - 6 In-person encounter Office Visit Silvio Schulte MD [facility] DIABETES MELLITUSHyperlipidemia;with high crp andlow lpaHYPOTHYROIDISM;COPDB12 DEFICIENCY;ON RX great;macrocytlisVITAMIN D DEFICIENCY;ON RX PER PRIMARYPEPTIC ULCER DISEASEDIVERTICULOSIS, COLONCHFr/o Sleep apnea;neg home studyOBESITY;HAPPY WITH OWN WEIGHT VITAL SIGNS Date Observation Value Provider Body Mass Index (Ratio) 24.14 kg/m2 Yasmani Razo MD blood pressure, cuff size regular As natalie Hollis blood pressure, diastolic 70 mm[Hg] As natalie Hollis blood pressure, systolic 101 mm[Hg] Jb Hollis oxygen saturation, oximetry 90 % Renetta Hollis pulse rate 70 /min Renetta Hollis weight E&M 132.0 [lb_av] Renetta Hollis Body Mass Index (Ratio) 23.77 kg/m2 Yudelka Schulte MD blood pressure, diastolic 72 mm[Hg] Jaja ylvanadna [facility] [place] blood pressure, systolic 98 mm[Hg] Josi [facility] oxygen saturation, oximetry 96 % Danna [facility] [place] pulse rate 68 /min Danna [facility] weight E&M 130 [lb_av] [facility] height E&M 62 [in_i] Danna [facility] [place] Body Mass Index (Ratio) 24.32 kg/m2 Amaris Sullivan blood pressure, diastolic 64 mm[Hg] An anaya Mcdonough blood pressure, systolic 103 mm[Hg] Any a Ceasar pulse rate 82 /min Emily Ceasar oxygen saturation, oximetry 92 % Emilyvandana Mcdonough weight E&M 133 [lb_av] Emily Ceasar blood pressure, cuff size large An anaya Mcdonough height E&M 62 [in_i] Emily Ceasar blood pressure, diastolic 38 mm[Hg] Annie nkLog blood pressure, systolic 76 mm[Hg] Tiana og Body Mass Index (Ratio) 25.60 kg/m2 Yudelka Schulte MD pulse rate 71 /min Emily Ceasar blood pressure, diastolic 38 mm[Hg] An anaya Mcdonough blood pressure, systolic 76 mm[Hg] Any a Ceasar weight E&M 140 [lb_av] Emily Ceasar oxygen saturation, oximetry 90 % Emily Ceasar respiratory rate E&M 17 /min Emily Gale llia blood pressure, cuff size large An anaya Mcdonough height E&M 62 [in_i] Emily Ceasar Body Mass Index (Ratio) 25.79 kg/m2 Yudelka skye Schulte MD blood pressure, diastolic 67 mm[Hg] Te patricia Galloway blood pressure, systolic 105 mm[Hg] Ter i [place] oxygen saturation, oximetry 92 % Hoa [place] respiratory rate E&M 15 /min Hoa Barry [facility] [place] pulse rate 72 /min Hoa [place] weight E&M 141 [lb_av] Hoa [place] Body Mass Index (Ratio) 26.34 kg/m2 Yudelka cheung Eris COLBERT blood pressure, diastolic 70 mm[Hg] Shirley whelan [place] blood pressure, systolic 109 mm[Hg] Hermes jayna [place] oxygen saturation, oximetry 92 % Eunice [place] pulse rate 100 /min Eunice benitez weight E&M 144 [lb_av] Eunice [facility] danay respiratory rate E&M 16 /min Karissa cm [place] blood pressure, cuff size large Shirley whelan [place] height E&M 62 [in_i] [facility]ice [facility] benite[facility] Body Mass Index (Ratio) 25.93 kg/m2 Remberto Frausto MD blood pressure, cuff size regular Br enda Moutray blood pressure, diastolic 70 mm[Hg] Br enda [place] blood pressure, systolic 110 mm[Hg] Basia nda M[place]ray oxygen saturation, oximetry 92 % Varsha [place]ray respiratory rate E&M 16 /min Varsha [place]outray pulse rate 84 /min Varsha [place] weight E&M 141.8 [lb_av] Varsha Moutray height E&M 62 [in_i] Varsha Moutray Body Mass Index (Ratio) 26.34 kg/m2 Remberto Frausto MD blood pressure, diastolic 63 mm[Hg] Li nkLogic blood pressure, systolic 91 mm[Hg] Tiana kLogic blood pressure, diastolic 63 mm[Hg] Sa ra Servin blood pressure, systolic 91 mm[Hg] Sana a Servin oxygen saturation, oximetry 93 % [place] Servin respiratory rate E&M 19 /min India Si ms pulse rate 76 /min [place] Servin weight E&M 144 [lb_av] [place] Servin blood pressure, cuff size regular Sa ra Servin height E&M 62 [in_i] [place] Servin Body Mass Index (Ratio) 27.07 kg/m2 Yudelka Schulte MD blood pressure, cuff size regular Ke rri Gruenenfelder blood pressure, diastolic 60 mm[Hg] Ke rri Gruenenfelder blood pressure, systolic 110 mm[Hg] Theodore ri Artuenenfelder oxygen saturation, oximetry 97 % Jackie Grmellisanenfelder respiratory rate E&M 14 /min Jackie amezquitaelder pulse rate 80 /min Jackie Artuenenfe lder weight E&M 148 [lb_av] Jackie Gruenenfe lder height E&M 62 [in_i] Jackie Gruenenfe lder Body Mass Index (Ratio) 26.70 kg/m2 Barb Montemayor DIRECTOR POWER blood pressure, cuff size regular Sa ra Servin blood pressure, diastolic 59 mm[Hg] Sa ra Servin blood pressure, systolic 100 mm[Hg] Sana a Servin oxygen saturation, oximetry 95 % [place] Servin respiratory rate E&M 18 /min [place] Si ms pulse rate 76 /min [place] Servin weight E&M 146 [lb_av] [place] Servin height E&M 62 [in_i] [place] Servin Body Mass Index (Ratio) 26.15 kg/m2 Yudelka Schulte MD blood pressure, diastolic 70 mm[Hg] Fe ana luisa Coats blood pressure, systolic 101 mm[Hg] Fel icia Coats pulse rate 71 /min Lady Coats oxygen saturation, oximetry 96 % Lady Coats respiratory rate E&M 16 /min Lady Coats temperature E&M 97.8 [degF] Lady Coats weight E&M 143 [lb_av] Lady Coats height E&M 62 [in_i] Lady Coats Body Mass Index (Ratio) 26.34 kg/m2 [facility] ta Demecs RN blood pressure, cuff size regular juancarlos Demecs RN blood pressure, diastolic 68 mm[Hg] Robe bradford Jackson blood pressure, systolic 118 mm[Hg] Tyrone een Jackson oxygen saturation, oximetry 96 % Ramiro Jackson respiratory rate E&M 16 /min Ramiro Jackson pulse rate 63 /min Ramiro Jackson weight E&M 144 [lb_av] Ramiro Jackson height E&M 62 [in_i] Ramiro Jackson Body Mass Index (Ratio) 26.88 kg/m2 Yudelka Schulte MD blood pressure, cuff size regular Kr isty Ramakrishna blood pressure, diastolic 70 mm[Hg] Kr isty Newberg blood pressure, systolic 130 mm[Hg] Kri sty Newberg oxygen saturation, oximetry 95 % Brittany Newberg pulse rate 67 /min Brittany Ramakrishna respiratory rate E&M 18 /min Brittany weight E&M 147.0 [lb_av] Brittany height E&M 62 [in_i] [facility] Body Mass Index (Ratio) 26.15 kg/m2 Yudelka Schulte MD temperature E&M 98.4 [degF] [facility] temperature site temporal [facility] blood pressure, diastolic 65 mm[Hg] To [facility] blood pressure, systolic 109 mm[Hg] [facility] respiratory rate E&M 16 /min [facility] pulse rate 79 /min [facility] oxygen saturation, oximetry 96 % [facility] weight E&M 143 [lb_av] [facility] height E&M 62 [in_i] [facility] Body Mass Index (Ratio) 26.52 kg/m2 Yudelka Schulte MD oxygen saturation, oximetry 97 % [facility] pulse rate 86 /min [facility], diastolic 60 mm[Hg] astity Trip blood pressure, systolic 106 mm[Hg] Denise stity [facility] respiratory rate E&M 16 /min Chastit y Trip weight E&M 145 [lb_av] [facility] height E&M 62 [in_i] [facility] Body Mass Index (Ratio) 26.70 kg/m2 Fernando Tran blood pressure, diastolic, standing 79 mm [Hg] Leighton Reza MD blood pressure, systolic, standing 125 mm [Hg] Leighton Reza MD blood pressure, cuff size regular Ke andrei Marcelino blood pressure, diastolic 79 mm[Hg] Sa dimitrios Reza MD blood pressure, systolic 131 mm[Hg] Deann Reza MD oxygen saturation, oximetry 98 % Jackie Chari respiratory rate E&M 18 /min Jackie Gottlieb josephinenfeldmanny pulse rate 86 /min Jackie Macm er weight E&M 146 [lb_av] Jackie Gomesbharathi er height E&M 62 [in_i] Jackie Macm [facility] Body Mass Index (Ratio) 27.43 kg/m2 Raheem Reza MD blood pressure, cuff size regular Ke rri Anilproctor hospitalmanny blood pressure, diastolic 70 mm[Hg] Ke rri Sampsonsaskiatana blood pressure, systolic 110 mm[Hg] Theodore gomez Chari oxygen saturation, oximetry 96 % Jackie Cordovahoda respiratory rate E&M 18 /min Jackie Gottlieb lucilahortenciatana pulse rate 88 /min Jackie Aquino [facility] weight E&M 150 [lb_av] Jackie Aquino [facility] height E&M 62 [in_i] Jackie Mae er Body Mass Index (Ratio) 26.70 kg/m2 Yudelka Schulte MD blood pressure, diastolic 70 mm[Hg] Er ica Ortiz-Dameon blood pressure, systolic 112 mm[Hg] Colleen ca Ortiz-Dameon oxygen saturation, oximetry 96 % Keri Ortiz-Dameon pulse rate 93 /min Keri Alcantar- Dameon weight E&M 146 [lb_av] Keri Alcantar- Dameon height E&M 62 [in_i] Keri Alcantar- Dameon Body Mass Index (Ratio) 25.42 kg/m2 Yudelka Schulte MD blood pressure, diastolic, right arm 62 m m[Hg] Silvio Schulte MD blood pressure, systolic, right arm 113 m m[Hg] Silvio Schulte MD blood pressure, cuff size regular Waqar Durbin blood pressure, diastolic 80 mm[Hg] Waqar santanaty Newberg blood pressure, systolic 110 mm[Hg] Alexandre Loby pulse rate 92 /min Brittany Ramakrishna oxygen saturation, oximetry 96 % Brittany Newberg weight E&M 139 [lb_av] Brittany Newberg respiratory rate E&M 17 /min Brittany Ramakrishna height E&M 62 [in_i] [facility] Body Mass Index (Ratio) 26.70 kg/m2 Yudelka Schulte MD oxygen saturation, oximetry 94 % [facility], diastolic 70 mm[Hg] astity Trip blood pressure, systolic 108 mm[Hg] [facility] stity Trip respiratory rate E&M 16 /min [facility] Trip pulse rate 95 /min [facility] Hospital[facility] Trip weight E&M 146 [lb_av] [facility] Trip height E&M 62 [in_i] [facility] Trip Body Mass Index (Ratio) 25.79 kg/m2 Yudelka Schulte MD blood pressure, cuff size regular Te boogie Pepito blood pressure, diastolic 72 mm[Hg] Te boogie Pepito blood pressure, systolic 130 mm[Hg] Ten loraine Pepito oxygen saturation, oximetry 96 % Taylor Pepito respiratory rate E&M 18 /min Taylor Pepito pulse rate 78 /min Taylor Pepito weight E&M 141 [lb_av] Taylorvandana Beyer Body Mass Index (Ratio) 26.08 kg/m2 Marcus Ford RN blood pressure, cuff size regular juancarlos Mathewecs RN blood pressure, diastolic 58 mm[Hg] juancarlos Demecs RN blood pressure, systolic 110 mm[Hg] [facility] sta Demecs RN oxygen saturation, oximetry 92 % Grimesambika Mathewecs RN respiratory rate E&M 18 /min Grimesambika Mathewecs RN weight E&M 142.6 [lb_av] Grimes Demecs RN pulse rate 88 /min Grimes Demecs R N blood pressure, diastolic 70 mm[Hg] juancarlos Quincyecs RN blood pressure, systolic 124 mm[Hg] [facility] ambika Demecs RN oxygen saturation, oximetry 96 % Madelineambika Mathewecs RN respiratory rate E&M 18 /min Grimesambika Mathewecs RN pulse rate 75 /min Madeline Demecs R N Body Mass Index (Ratio) 26.34 kg/m2 Yudelka Schulte MD blood pressure, cuff size regular Ke rri Chari blood pressure, diastolic 62 mm[Hg] Ke rri Chari blood pressure, systolic 92 mm[Hg] Theodore Marcelino oxygen saturation, oximetry 95 % Jackie Marcelino respiratory rate E&M 16 /min Jackie wilcox pulse rate 96 /min Jackie Aquino lder weight E&M 144 [lb_av] Jackie Aquino lder height E&M 62 [in_i] Jackie arreolaer Body Mass Index (Ratio) 25.79 kg/m2 Yasemin Ewing MD blood pressure, cuff size regular Ke rri Grmellisanedarron blood pressure, diastolic 70 mm[Hg] Ke rri Eliseonedarron blood pressure, systolic 140 mm[Hg] Theodore Cordovabrandonsaskiatana oxygen saturation, oximetry 95 % Jackie Cordovahoda respiratory rate E&M 16 /min Jackie Gottlieb jeri pulse rate 100 /min Jackie Aquino tricia weight E&M 141 [lb_av] Jackie Aquino maxwell height E&M 62 [in_i] Jackie Aquino [facility] Body Mass Index (Ratio) 24.87 kg/m2 Yasemin Ewing MD blood pressure, resting Yes Yana Beyer blood pressure, cuff size large Te boogie Beyer blood pressure, diastolic 72 mm[Hg] Te boogie Beyer blood pressure, systolic 112 mm[Hg] Sudarshan Beyer oxygen saturation, oximetry 93 % Taylor Beyer respiratory rate E&M 18 /min Taylor Loredohley pulse rate 94 /min Taylor Loredohley weight E&M 136 [lb_av] Taylor Beyer blood pressure, diastolic 70 mm[Hg] In patti Kell blood pressure, systolic 128 mm[Hg] Svetlana landerosvandana Castorena pulse rate 98 /min Ciera Kell oxygen saturation, oximetry 96 % Ciera Castorena respiratory rate E&M 17 /min Ciera Castorena Body Mass Index (Ratio) 25.24 kg/m2 Italia gunner Castorena weight E&M 138 [lb_av] Ciera Castorena blood pressure, diastolic 50 mm[Hg] Robe Blue'Stewart blood pressure, systolic 98 mm[Hg] Lilian silvestre O'Stewart pulse rate 80 /min Yara O'Stewart oxygen saturation, oximetry 94 % Yara O'Stewart respiratory rate E&M 14 /min Yara O'Stewart Body Mass Index (Ratio) 26.34 kg/m2 Ran RamachandranStewart weight E&M 144 [lb_av] Yara O'Stewart blood pressure, diastolic 60 mm[Hg] juancarlos Demecs RN blood pressure, systolic 122 mm[Hg] [facility] sta Demecs RN pulse rate 97 /min Grimes Demecs R N oxygen saturation, oximetry 95 % Grimes Demecs RN respiratory rate E&M 18 /min Grimes Demecs RN Body Mass Index (Ratio) 25.82 kg/m2 [facility] Center[facility]a ta Demecs RN weight E&M 141.2 [lb_av] Grimes Demecs RN blood pressure, diastolic 56 mm[Hg] juancarlos Demecs RN blood pressure, systolic 102 mm[Hg] [facility] sta Demecs RN pulse rate 80 /min Madeline Demecs R N oxygen saturation, oximetry 96 % Madeline Demecs RN respiratory rate E&M 20 /min Grimes Demecs RN Body Mass Index (Ratio) 26.34 kg/m2 [facility] ta [facility] weight E&M 144 [lb_av] Grimes Demecs R N blood pressure, diastolic 62 mm[Hg] Ankit Bagleyrenetta Christine blood pressure, systolic 110 mm[Hg] Mingo renetta Nanci pulse rate 74 /min Mingotonycm Nanci oxygen saturation, oximetry 95 % Mingorenetta Christine respiratory rate E&M 17 /min Fede Raineydney Body Mass Index (Ratio) 26.26 kg/m2 Ankitmirna Christine weight E&M 143.6 [lb_av] AnkitKevynrenetta Christine blood pressure, diastolic 64 mm[Hg] Sa ndra Horsesolo blood pressure, systolic 114 mm[Hg] Danny su Horsey pulse rate 84 /min Karol Mtz oxygen saturation, oximetry 94 % Karol Mtz respiratory rate E&M 18 /min Karol Body Mass Index (Ratio) 25.53 kg/m2 Roselia Mtz weight E&M 139.6 [lb_av] Karol Mtz Body Mass Index (Ratio) 25.24 kg/m2 [facility]3]george pulse rate 81 /min Angelica oxygen saturation, oximetry 93 % Angelica blood pressure, diastolic 60 mm[Hg] As [facility] blood pressure, systolic 110 mm[Hg] [facility] respiratory rate E&M 16 /min Angelica weight E&M 138 [lb_av] [facility] Body Mass Index (Ratio) 25.33 kg/m2 Mimi Ochoa blood pressure, diastolic 77 mm[Hg] Mitchell Ochoa blood pressure, systolic 126 mm[Hg] Rivera pham Ochoa pulse rate 73 /min Radha Ochoa oxygen saturation, oximetry 93 % Radhapham Ochoa respiratory rate E&M 16 /min Radhapham Ochoa weight E&M 138 [lb_av] Radha Ochoa Body Mass Index (Ratio) 25.88 kg/m2 Daren Bojorquez blood pressure, diastolic, left arm 74 mm [Hg] Soco Bojorquez blood pressure, systolic, left arm 129 mm [Hg] Soco Bojorquez blood pressure, diastolic, right arm 91 m m[Hg] Soco Bojorquez blood pressure, systolic, right arm 115 m m[Hg] Soco Bojorquez blood pressure, diastolic 74 mm[Hg] Medrano blood pressure, systolic 129 mm[Hg] Lester ramirez Bojorquez pulse rate 86 /min Soco Bojorquez oxygen saturation, oximetry 95 % Soco Bojorquez respiratory rate E&M 16 /min Soco Bojorquez weight E&M 141 [lb_av] Soco Bojorquez blood pressure, diastolic, left arm 54 mm [Hg] Camacho Jenkinss RN blood pressure, systolic, left arm 121 mm [Hg] Camacho Jenkinss RN blood pressure, diastolic, right arm 89 m m[Hg] Camacho Jenkinss RN blood pressure, systolic, right arm 128 m m[Hg] Camacho Jenkinss RN oxygen saturation, oximetry 95 % Camacho Jenkinskrysta DEL [place]O blood pressure, diastolic 54 mm[Hg] Zach alba Romo RN blood pressure, systolic 121 mm[Hg] Camacho Jenkinss RN pulse rate 85 /min Camacho Romo RN respiratory rate E&M 16 /min Camacho Mauricio [facility] RN Body Mass Index (Ratio) 26.18 kg/m2 Camacho Jenkinss RN weight E&M 142.6 [lb_av] Camacho Jenkinss RN Body Mass Index (Ratio) 26.62 kg/m2 Prasanna da Ventimiglia [facility] weight E&M 145 [lb_av] Yesika Ventimig mary jo [facility] Body Mass Index (Ratio) 26.80 kg/m2 Kiley Ragland blood pressure, diastolic 64 mm[Hg] Na mello Ragland blood pressure, systolic 104 mm[Hg] Charline Ragland pulse rate 101 /min Sarah Ragland oxygen saturation, oximetry 94 % Sarah Ragland respiratory rate E&M 18 /min Sarah Ragland weight E&M 146 [lb_av] Sarah Ragland height E&M 62 [in_i] Sarah Ragland ALLERGIES Allergy Name Onset Date Reaction Criticality Status COREG low bp Low Criticality suspended RESULTS Date Observation Value Provider Reference Range Interpretation Location 06/13 prothrombin time (patient) 10.6 s [facility] 9.0-11.5 Normal 06/13 international normalized ratio (INR) 1.0 [facility] Normal 06/13 hyaline casts, urine NONE SEEN [facility] NONE SEEN Normal 06/13 bacteria, urine microscopy MODERATE [facility] NONE SEEN Abnormal 06/13 epithelial cells, urine NONE SEEN [facility] < OR = 5 Normal 06/13 RBC urine by microscopy NONE SEEN [facility] < OR = 2 Normal 06/13 WBC urine on microscopy NONE SEEN /HPF [facility] < OR = 5 Normal 06/13 protein, urine, semiquantitative (dipstick) NEGATIVE [facility] NEGATIVE Normal 06/13 blood in urine (hemoglobin) by dipstick NEGATIVE [facility] NEGATIVE Normal 06/13 ketones, urine, by test strip NEGATIVE [facility] NEGATIVE Normal 06/13 bilirubin, urine NEGATIVE [facility] NEGATIVE Normal 06/13 glucose, urine, semiquantitative 2+ [facility] NEGATIVE Abnormal 06/13 pH, urine, semiquantitative 6.5 [facility] 5.0-8.0 Normal 06/13 specific gravity, urine 1.013 [facility] 1.001-1.035 Normal 06/13 appearance, urine CLEAR [facility] CLEAR Normal 06/13 urine color YELLOW [facility] YELLOW Normal 06/13 PTT patient 27 s [facility] 23-32 Normal 06/13 basophils as percent of blood leukocytes 0.6 % [facility] Normal 06/13 eosinophils as percent of blood leukocytes 1.0 % [facility] Normal 06/13 monocyte count, blood 6.1 % [facility] Normal 06/13 lymphocyte count, blood 15.3 % [facility] Normal 06/13 neutrophils as percent of blood leukocytes 77 % [facility] Normal 06/13 basophils, absolute, manual 58 cells/mcL [facility] 0-200 Normal 06/13 eosinophils, absolute, manual 96 cells/mcL [facility] 15-500 Normal 06/13 monocytes, absolute, manual 586 cells/mcL [facility] 200-950 Normal 06/13 lymphocytes, absolute 1469 CELLS/UL [facility] 850-3900 Normal 06/13 Absolute Neutrophil count 7392 cells/mcL [facility] [id number] Normal 06/13 mean platelet volume 9.7 fL [facility] 7.5-12.5 Normal 06/13 platelet count 386 THOUSAND/UL [facility] 140-400 Normal 06/13 red blood cell distribution width 12.2 % [facility] 11.0-15.0 Normal 06/13 mean corpuscular hemoglobin concentration, RBC 33.1 G/DL [facility] 32.0-36.0 Normal 06/13 mean corpuscular hemoglobin, RBC 34.4 pg [facility] 27.0-33.0 High 06/13 mean corpuscular volume, RBC 104.0 fL [facility] 80.0-100.0 High 06/13 hematocrit, blood 39.3 % [facility] 35.0-45.0 Normal 06/13 hemoglobin electrophoresis, blood 13.0 [facility] 11.7-15.5 Normal 06/13 erythrocyte (RBC) count 3.78 MILLION/UL [facility] 3.80-5.10 Low 06/13 leukocyte (white blood cells) count, blood 9.6 THOUSAND/UL [facility] 3.8-10.8 Normal 06/13 alanine aminotransferase (SGPT), serum 14 1/L [facility] 6-29 Normal 06/13 aspartate aminotransferase (SGOT), serum 16 1/L [facility] 10-35 Normal 06/13 alkaline phosphatase, serum 238 1/L [facility] 37-153 High 06/13 bilirubin, serum, total 0.7 mg/dL [facility] 0.2-1.2 Normal 06/13 albumin/globulin ratio, serum 1.5 (calc) [facility] 1.0-2.5 Normal 06/13 globulins, serum, total 2.4 G/DL (CALC) [facility] 1.9-3.7 Normal 06/13 albumin, serum 3.7 g/dL [facility] 3.6-5.1 Normal 06/13 protein, total, serum 6.1 g/dL [facility] 6.1-8.1 Normal 06/13 calcium, serum 9.0 mg/dL [facility] 8.6-10.4 Normal 06/13 carbon dioxide, venous blood 29 mmol/L [facility] 20-32 Normal 06/13 chloride, serum 96 mmol/L [facility] 98-110 Low 06/13 potassium, serum 5.1 mmol/L [facility] 3.5-5.3 Normal 06/13 sodium, serum 131 mmol/L [facility] 135-146 Low 06/13 urea nitrogen/creatinin e ratio, serum 20 (calc) [facility] 6-22 Normal 06/13 creatinine, serum 1.02 mg/dL [facility] 0.60-1.00 High 06/13 urea nitrogen, blood 20 mg/dL [facility] 7-25 Normal 06/13 blood glucose, random 74 mg/dL [facility] 65-99 Normal 08/01 microalbumin/creat inine ratio, urine <13 mg/g [facility] 1- Normal [place] [address] 08/01 creatinine, random, urine 90.9 mg/dL [facility] , [place] [address] 08/01 microalbumin, random, urine <12.0 mg/L [facility] [place] [address] 08/01 Estimated Glomerular Filtration Rate (calc) 53 mL/min/{1.73 _m2} [place] [address] 08/01 cholesterol, non-HDL, total 48 mg/dL [place] [address] 08/01 lipoprotein, beta, serum, point, quantitative, calculated 32 mg/dL [facility] <=129 Normal C, [place] [address] 08/01 HDL CHOLESTEROL 44 mg/dL [facility] >=40 Normal C, [place] [address] 08/01 triglyceride, serum, fasting 81 mg/dL [facility] <=149 Normal C, [place] [address] 08/01 cholesterol, serum 92 mg/dL [facility] 30-199 Normal C, [place] [address] 08/01 NT-pro BNP 400 [facility] <=300 High C, [place] [address] 08/01 aspartate aminotransferase (SGOT), serum 29 1/L [facility] 10-45 Normal C, [place] [address] 08/01 alanine aminotransferase (SGPT), serum 15 1/L [facility] 7-45 Normal C, [place] [address] 08/01 Alkaline phosphatase 102 [facility] 40-130 Normal C, [place] [address] 08/01 albumin, serum 3.2 g/dL [facility] 3.5-5.0 Low C, [place] [address] 08/01 protein, total, serum 6.7 g/dL [facility] 6.5-8.5 Normal C, [place] [address] 08/01 bilirubin, serum, total 0.3 mg/dL [facility] 0.1-1.2 Normal C, [place] [address] 08/01 calcium, serum 9.0 mg/dL [facility] 8.5-10.3 Normal C, [place] [address] 08/01 blood glucose, random 112 mg/dL [facility] 70-199 Normal C, [place] [address] 08 creatine, serum 1.10 mg/dL [facility] 0.60-1.10 Normal C, [place] [address] 308 urea nitrogen, blood 10 mg/dL [facility] 6-25 Normal C, [place] [address] 08 anion gap, serum 10 mmol/L [facility] 2-15 Normal C, [place] [address] 3/08 carbon dioxide, venous blood 24 mmol/L [facility] 22-32 Normal C, [place] [address] 08 chloride, serum 102 mmol/L [facility] 97-110 Normal C, [place] [address] 308 potassium, serum 4.4 MMOL/L [facility] 3.3-4.9 Normal C, [place] [address] 08 sodium, serum 136 mmol/L [facility] 135-145 Normal C, [place] [address] 08 thyroid stimulating hormone, serum 0.94 MCIUNIT/ML [facility] 0.30-4.20 Normal C, [place] [address] 308 Absolute Basophils 0.0 K/CUMM [facility] 0.0-0.1 Normal C, [place] [address] 3/08 Absolute Monocytes 0.6 K/CUMM [facility] 0.2-0.8 Normal C, [place] [address] 08 Absolute Lymphocytes 1.7 K/CUMM [facility] 0.8-3.3 Normal C, [place] [address] 08 Absolute Neutrophils 5.0 K/CUMM [facility] 1.5-6.5 Normal C, [place] [address] 08 nucleated red blood cells as percent of blood leukocytes 0.00 K/CUMM [facility] 0.00-0.01 Normal 08/01 red blood cell distribution width, size density 64.5 fL [facility] 35.7-48.1 High 08/01 mean corpuscular hemoglobin concentration, RBC 28.7 G/DL [facility] 32.3-35.7 Low 08/01 mean corpuscular hemoglobin, RBC 32.9 pg [facility] 27.1-33.3 Normal 08/01 mean corpuscular volume, RBC 114.3 fL [facility] 81.3-96.4 High 08/01 erythrocyte count, whole blood 2.86 M/CUMM [facility] 3.90-5.20 Low 08/01 mean platelet volume 9.2 fL [facility] 9.1-12.3 Normal 08/01 platelet count 459 10*3/uL [facility] 150-400 High 08/01 hematocrit, blood 32.7 % [facility] 35.6-45.5 Low 08/01 hemoglobin, blood 9.4 g/dL [facility] 11.9-15.5 Low 07/16 Estimated Glomerular Filtration Rate (calc) 68 mL/min/{1.73 _m2} [facility] C, [place] [address] 07/16 calcium, serum 9.5 mg/dL [facility] 8.5-10.3 Normal , [place] [address] 07/16 blood glucose, random 119 mg/dL [facility] 70-199 Normal , [place] [address] 07/16 creatine, serum 0.90 mg/dL [facility] 0.60-1.10 Normal C, [place] [address] 07/16 urea nitrogen, blood 17 mg/dL [facility] 8-25 Normal C, [place] [address] 07/16 anion gap, serum 12 mmol/L [facility] 2-15 Normal C, [place] [address] 07/16 carbon dioxide, venous blood 24 mmol/L [facility] 22-32 Normal C, [place] [address] 07/16 chloride, serum 102 mmol/L [facility] 97-110 Normal C, [place] [address] 07/16 potassium, serum 4.4 MMOL/L [facility] 3.3-4.9 Normal C, [place] [address] 07/16 sodium, serum 138 mmol/L [facility] 135-145 Normal C, [place] [address] 07/08 microalbumin/creat inine ratio, urine <22 mg/g [facility] 1-29 Normal C, [place] [address] 07/08 creatinine, random, urine 54.6 mg/dL [facility] C, [place] [address] 07/08 microalbumin, random, urine <12.0 mg/L [facility] C, [place] [address] 07/08 cholesterol, non-HDL, total 59 mg/dL [facility] C, [place] [address] 07/08 HDL CHOLESTEROL 60 mg/dL [facility] >=40 Normal C, [place] [address] 07/08 triglyceride, serum, fasting 206 mg/dL [facility] <=149 High C, [place] [address] 07/08 cholesterol, serum 119 mg/dL [facility] 30-199 Normal C, [place] [address] 07/08 calcium, serum 9.1 mg/dL [facility] 8.5-10.3 Normal C, [place] [address] 07/08 blood glucose, random 120 mg/dL [facility] 70-199 Normal C, [place] [address] 07/08 creatine, serum 1.00 mg/dL [facility] 0.60-1.10 Normal C, [place] [address] 07/08 urea nitrogen, blood 20 mg/dL [facility] 8-25 Normal C, [place] [address] 07/08 anion gap, serum 15 mmol/L [facility] 2-15 Normal C, [place] [address] 07/08 carbon dioxide, venous blood 22 mmol/L [facility] 22-32 Normal C, [place] [address] 07/08 chloride, serum 99 mmol/L [facility] 97-110 Normal C, [place] [address] 07/08 potassium, serum 4.1 MMOL/L [facility] 3.3-4.9 Normal C, [place] [address] 07/08 sodium, serum 136 mmol/L [facility] 135-145 Normal C, [place] [address] 07/08 thyroid stimulating hormone, serum 0.48 MCIUNIT/ML [facility] 0.30-4.20 Normal C, [place] [address] 10/13 NT-pro BNP 246 [facility] <=300 Normal C, [place] [address] 07/24 ferritin, serum 92 ng/mL [facility] 15-150 07/24 pro brain natriuretic peptide 285 pg/mL [facility] 0-301 07/24 c-reactive protein, quantitative, serum 2.97 mg/L [facility] 0.00-3.00 07/24 prothrombin time (patient) 9.8 s [facility] 9.1-12.0 07/24 international normalized ratio (INR) 0.9 [facility] 0.9-1.2 07/24 microalbumin/creat inine ratio, urine <13 mg/g creat [facility] 0-29 07/24 microalbumin, random, urine <3.0 ug/mL [facility] Not Estab. 07/24 creatinine, random, urine 23.2 mg/dL [facility] Not Estab. 07/24 iron saturation percent, serum 26 % [facility] 15-55 07/24 iron, serum 71 ug/dL [facility] 27-139 07/24 iron binding capacity, unsaturated 199 ug/dL [facility] 230-716 8519/1 2/28 iron binding capacity, total 270 ug/dL [facility] 336-403 0731/1 2/28 free thyroxine index 2.1 [facility] 1.2-4.9 07/24 triiodothyronine resin uptake 27 % [facility] 24-39 07/24 thyroxine, serum, total 7.9 ug/dL [facility] 4.5-12.0 07/24 thyroid stimulating hormone, serum 0.375 u[IU]/mL [facility] 0.450-4.500 Low 07/24 lipoprotein, beta, serum, point, quantitative, calculated 57 mg/dL [facility] 0-99 07/24 HDL cholesterol, serum 64 mg/dL [facility] >39 07/24 triglyceride, serum, random 149 mg/dL [facility] 0-149 07/24 cholesterol, serum 146 mg/dL [facility] 351-226 9667/1 2/28 alanine aminotransferase (SGPT), serum 7 1/L [facility] 0-32 07/24 aspartate aminotransferase (SGOT), serum 12 1/L [facility] 0-40 07/24 alkaline phosphatase, serum 60 1/L [facility] 44-121 07/24 bilirubin, serum, total 0.3 mg/dL [facility] 0.0-1.2 07/24 albumin/globulin ratio, serum 1.7 [facility] 1.2-2.2 07/24 globulin, serum 2.4 [facility] 1.5-4.5 07/24 albumin, serum 4.1 g/dL [facility] 3.7-4.7 07/24 protein, total, serum 6.5 g/dL [facility] 6.0-8.5 07/24 calcium, serum 9.7 mg/dL [facility] 8.7-10.3 07/24 carbon dioxide, venous blood 24 mmol/L [facility] 20-29 07/24 chloride, serum 103 mmol/L [facility] 96-106 07/24 potassium, serum 5.2 mmol/L [facility] 3.5-5.2 07/24 sodium, serum 142 mmol/L [facility] 712-126 1347/1 2/28 urea nitrogen/creatinin e ratio, serum 17 [facility] 12-28 07/24 eGFR if 60 mL/min/{1.73 _m2} [facility] >59 07/24 eGFR if not 52 mL/min/{1.73 _m2} [facility] >59 Low 07/24 creatinine, serum 1.08 mg/dL [facility] 0.57-1.00 High 07/24 urea nitrogen, blood 18 mg/dL [facility] 8-27 07/24 blood glucose, random 95 mg/dL [facility] 65-99 07/24 hemoglobin A1C, blood, as % of total hemoglobin 6.3 % [facility] 4.8-5.6 High 07/24 basophil count, absolute 0.1 x10E3/uL [facility] 0.0-0.2 07/24 Eosinophil Absolute Count 0.3 X10E3/UL [facility] 0.0-0.4 07/24 monocyte count, blood, automated 0.5 X10E3/UL [facility] 0.1-0.9 07/24 lymphocyte count, blood, automated 1.5 X10E3/UL [facility] 0.7-3.1 07/24 Absolute Neutrophils 4.6 X10E3/UL [facility] 1.4-7.0 07/24 basophils as percent of blood leukocytes 1 % [facility] Not Estab. 07/24 eosinophils as percent of blood leukocytes 4 % [facility] Not Estab. 07/24 monocytes as percent of blood leukocytes 8 % [facility] Not Estab. 07/24 lymphocytes as percent of blood leukocytes 22 % [facility] Not Estab. 07/24 neutrophils as percent of blood leukocytes 65 % [facility] Not Estab. 07/24 platelet count 259 X10E3/UL [facility] [phone]/1 2/28 red blood cell distribution width 11.3 % [facility] 11.7-15.4 Low 07/24 mean corpuscular hemoglobin concentration, RBC 34.5 G/DL [facility] 31.5-35.7 07/24 mean corpuscular hemoglobin, RBC 36.0 pg [facility] 26.6-33.0 High 07/24 mean corpuscular volume, RBC 105 fL [facility] 79-97 High 07/24 hematocrit, blood 41.5 % [facility] 34.0-46.6 07/24 hemoglobin, blood 14.3 g/dL [facility] 11.1-15.9 07/24 erythrocyte (RBC) count 3.97 X10E6/UL [facility] 3.77-5.28 07/24 leukocyte count, blood 6.9 X10E3/UL [facility] 3.4-10.8 11/23 calcium, serum 9.7 mg/dL [facility] 8.7-10.3 11/23 carbon dioxide, venous blood 24 mmol/L [facility] 20-29 11/23 chloride, serum 101 mmol/L [facility] 96-106 11/23 potassium, serum 5.2 mmol/L [facility] 3.5-5.2 11/23 sodium, serum 138 mmol/L [facility] [phone]/0 6/30 urea nitrogen/creatinin e ratio, serum 21 [facility] 12-28 11/23 eGFR if 56 mL/min/{1.73 _m2} [facility] >59 Low 11/23 eGFR if not 49 mL/min/{1.73 _m2} [facility] >59 Low 11/23 creatinine, serum 1.14 mg/dL [facility] 0.57-1.00 High 11/23 urea nitrogen, blood 24 mg/dL [facility] 8-27 11/23 blood glucose, random 72 mg/dL [facility] 65-99 10/12 pro brain natriuretic peptide 71 pg/mL [facility] 0-301 10/12 ferritin, serum 61 ng/mL [facility] 15-150 10/12 iron saturation percent, serum 18 % [facility] 15-55 10/12 iron, serum 60 ug/dL [facility] 27-139 10/12 iron binding capacity, unsaturated 268 ug/dL [facility] [phone]/0 5/19 iron binding capacity, total 328 ug/dL [facility] [phone]/0 5/19 free thyroxine index 1.8 [facility] 1.2-4.9 10/12 triiodothyronine resin uptake 25 % [facility] 24-39 10/12 thyroxine, serum, total 7.2 ug/dL [facility] 4.5-12.0 10/12 thyroid stimulating hormone, serum 1.510 u[IU]/mL [facility] 0.450-4.500 10/12 lipoprotein, beta, serum, point, quantitative, calculated 48 mg/dL [facility] 0-99 10/12 very low density lipoproteins 28 mg/dL [facility] 5-40 10/12 HDL cholesterol, serum 64 mg/dL [facility] >39 10/12 triglyceride, serum, random 141 mg/dL [facility] 0-149 10/12 cholesterol, serum 140 mg/dL [facility] [phone]/0 5/19 calcium, serum 9.8 mg/dL [facility] 8.7-10.3 10/12 carbon dioxide, venous blood 24 mmol/L [facility] 20-29 10/12 chloride, serum 101 mmol/L [facility] 96-106 10/12 potassium, serum 5.5 mmol/L [facility] 3.5-5.2 High 10/12 sodium, serum 141 mmol/L [facility] [phone]/0 5/19 urea nitrogen/creatinin e ratio, serum 18 [facility] 12-28 10/12 eGFR if 53 mL/min/{1.73 _m2} [facility] >59 Low 10/12 eGFR if not 46 mL/min/{1.73 _m2} [facility] >59 Low 10/12 creatinine, serum 1.19 mg/dL [facility] 0.57-1.00 High 10/12 urea nitrogen, blood 21 mg/dL [facility] 8-27 10/12 blood glucose, random 86 mg/dL [facility] 65-99 10/12 basophil count, absolute 0.1 x10E3/uL [facility] 0.0-0.2 10/12 Eosinophil Absolute Count 0.1 X10E3/UL [facility] 0.0-0.4 10/12 monocyte count, blood, automated 0.6 X10E3/UL [facility] 0.1-0.9 10/12 lymphocyte count, blood, automated 1.7 X10E3/UL [facility] 0.7-3.1 10/12 Absolute Neutrophils 4.9 X10E3/UL [facility] 1.4-7.0 10/12 basophils as percent of blood leukocytes 1 % [facility] Not Estab. 10/12 eosinophils as percent of blood leukocytes 2 % [facility] Not Estab. 10/12 monocytes as percent of blood leukocytes 8 % [facility] Not Estab. 10/12 lymphocytes as percent of blood leukocytes 23 % [facility] Not Estab. 10/12 neutrophils as percent of blood leukocytes 66 % [facility] Not Estab. 10/12 platelet count 302 X10E3/UL [facility] 077-077 0508/0 5/19 red blood cell distribution width 12.0 % [facility] 11.7-15.4 10/12 mean corpuscular hemoglobin concentration, RBC 34.2 G/DL [facility] 31.5-35.7 10/12 mean corpuscular hemoglobin, RBC [facility].0 pg [facility] 26.6-33.0 High 10/12 mean corpuscular volume, RBC 103 fL [facility] 79-97 High 10/12 hematocrit, blood 40.4 % [facility] 34.0-46.6 10/12 hemoglobin, blood 13.8 g/dL [facility] 11.1-15.9 10/12 erythrocyte (RBC) count 3.94 X10E6/UL [facility] 3.77-5.28 10/12 leukocyte count, blood 7.4 X10E3/UL [facility] 3.4-10.8 10/07 pro brain natriuretic peptide 64 pg/mL [facility] 0-301 10/07 ferritin, serum 188 ng/[facility] 15-150 High 10/07 iron saturation percent, serum 24 % [facility] 15-55 10/07 iron, serum 71 ug/dL [facility] 27-139 10/07 iron binding capacity, unsaturated 222 ug/dL [facility] [phone]/0 5/14 iron binding capacity, total 293 ug/dL [facility] [phone]/0 5/14 hemoglobin A1C, blood, as % of total hemoglobin 5.8 % [facility] 4.8-5.6 High 10/07 lipoprotein, beta, serum, point, quantitative, calculated 45 mg/dL [facility] 0-99 10/07 very low density lipoproteins 24 mg/dL [facility] 5-40 10/07 HDL cholesterol, serum 69 mg/dL [facility] >39 10/07 triglyceride, serum, random 119 mg/dL [facility] 0-149 10/07 cholesterol, serum 138 mg/dL [facility] [phone]/0 5/14 basophil count, absolute 0.0 x10E3/uL [facility] 0.0-0.2 10/07 Eosinophil Absolute Count 0.1 X10E3/UL [facility] 0.0-0.4 10/07 monocyte count, blood, automated 0.6 X10E3/UL [facility] 0.1-0.9 10/07 lymphocyte count, blood, automated 1.7 X10E3/UL [facility] 0.7-3.1 10/07 Absolute Neutrophils 7.0 X10E3/UL [facility] 1.4-7.0 10/07 basophils as percent of blood leukocytes 0 % [facility] Not Estab. 10/07 eosinophils as percent of blood leukocytes 1 % [facility] Not Estab. 10/07 monocytes as percent of blood leukocytes 6 % [facility] Not Estab. 10/07 lymphocytes as percent of blood leukocytes 18 % [facility] Not Estab. 10/07 neutrophils as percent of blood leukocytes 74 % [facility] Not Estab. 10/07 platelet count 347 X10E3/UL [facility] [phone]/0 5/14 red blood cell distribution width 12.8 % [facility] 12.3-15.4 10/07 mean corpuscular hemoglobin concentration, RBC 33.2 G/DL [facility] 31.5-35.7 10/07 mean corpuscular hemoglobin, RBC 34.9 pg [facility] 26.6-33.0 High 10/07 mean corpuscular volume, RBC 105 fL [facility] 79-97 High 10/07 hematocrit, blood 41.9 % [facility] 34.0-46.6 10/07 hemoglobin, blood 13.9 g/dL [facility] 11.1-15.9 10/07 erythrocyte (RBC) count 3.98 X10E6/UL [facility] 3.77-5.28 10/07 leukocyte count, blood 9.4 X10E3/UL [facility] 3.4-10.8 10/07 alanine aminotransferase (SGPT), serum 15 1/L [facility] 0-32 10/07 aspartate aminotransferase (SGOT), serum 17 1/L [facility] 0-40 10/07 alkaline phosphatase, serum 69 1/L [facility] 39-117 10/07 bilirubin, serum, total 0.3 mg/dL [facility] 0.0-1.2 10/07 albumin/globulin ratio, serum 1.8 [facility] 1.2-2.2 10/07 globulin, serum 2.6 [facility] 1.5-4.5 10/07 albumin, serum 4.7 g/dL [facility] 3.6-4.8 10/07 protein, total, serum 7.3 g/dL [facility] 6.0-8.5 10/07 calcium, serum 10.6 mg/dL [facility] 8.7-10.3 High 10/07 carbon dioxide, venous blood 21 mmol/L [facility] 20-29 10/07 chloride, serum 102 mmol/L [facility] 96-106 10/07 potassium, serum 5.8 mmol/L [facility] 3.5-5.2 High 10/07 sodium, serum 143 mmol/L [facility] [phone]/0 5/14 urea nitrogen/creatinin e ratio, serum 16 [facility] -10/07 eGFR if 56 mL/min/{1.73 _m2} [facility] >59 Low 10/07 eGFR if not 48 mL/min/{1.73 _m2} [facility] >59 Low 10/07 creatinine, serum 1.16 mg/dL [facility] 0.57-1.00 High 10/07 urea nitrogen, blood 19 mg/dL [facility] 8-10/07 blood glucose, random 100 mg/dL [facility] 65-99 High 06/19 calcium, serum 9.3 mg/dL [facility] 8.7-10.3 06/19 carbon dioxide, venous blood 15 mmol/L [facility] - Low 06/19 chloride, serum 93 mmol/L [facility] 96-106 Low 06/19 potassium, serum 4.9 mmol/L [facility] 3.5-5.2 06/19 sodium, serum 129 mmol/L [facility] 134-144 Low 06/19 urea nitrogen/creatinin e ratio, serum 12 [facility] -06/19 eGFR if 81 mL/min/{1.73 _m2} [facility] >59 06/19 eGFR if not 71 mL/min/{1.73 _m2} [facility] >59 06/19 creatinine, serum 0.85 mg/dL [facility] 0.57-1.00 06/19 urea nitrogen, blood 10 mg/dL [facility] 8-27 06/19 blood glucose, random 100 mg/dL [facility] 65-99 High 06/19 activated partial thromboplastin time (aPTT) 27 s [facility] 24-33 06/19 prothrombin time (patient) 10.4 s [facility] 9.1-12.0 06/19 international normalized ratio (INR) 1.0 [facility] 0.8-1.2 06/19 basophil count, absolute 0.0 x10E3/uL [facility] 0.0-0.2 06/19 Eosinophil Absolute Count 0.1 X10E3/UL [facility] 0.0-0.4 06/19 monocyte count, blood, automated 0.5 X10E3/UL [facility] 0.1-0.9 06/19 lymphocyte count, blood, automated 1.9 X10E3/UL [facility] 0.7-3.1 06/19 Absolute Neutrophils 5.6 X10E3/UL [facility] 1.4-7.0 06/19 basophils as percent of blood leukocytes 0 % [facility] Not Estab. 06/19 eosinophils as percent of blood leukocytes 1 % [facility] Not Estab. 06/19 monocytes as percent of blood leukocytes 7 % [facility] Not Estab. 06/19 lymphocytes as percent of blood leukocytes 23 % [facility] Not Estab. 06/19 neutrophils as percent of blood leukocytes 69 % [facility] Not Estab. 06/19 platelet count 214 X10E3/UL [facility] [phone]/0 1/24 red blood cell distribution width 12.9 % [facility] 12.3-15.4 06/19 mean corpuscular hemoglobin concentration, RBC 34.1 G/DL [facility] 31.5-35.7 06/19 mean corpuscular hemoglobin, RBC 35.6 pg [facility] 26.6-33.0 High 06/19 mean corpuscular volume, RBC 105 fL [facility] 79-97 High 06/19 hematocrit, blood 36.4 % [facility] 34.0-46.6 06/19 hemoglobin, blood 12.4 g/dL [facility] 11.1-15.9 06/19 erythrocyte (RBC) count 3.48 X10E6/UL [facility] 3.77-5.28 Low 06/19 leukocyte count, blood 8.1 X10E3/UL [facility] 3.4-10.8 07/23 eGFR if 79 mL/min/{1.73 _m2} [facility] >59 07/23 eGFR if not 69 mL/min/{1.73 _m2} [facility] >59 07/23 creatinine, serum 0.87 mg/dL [facility] 0.57-1.00 05/29 ferritin, serum 161 ng/mL [facility] 15-150 High 05/29 iron saturation percent, serum 41 % [facility] 15-55 05/29 iron, serum 123 ug/dL [facility] 27-139 05/29 iron binding capacity, unsaturated 176 ug/dL [facility] [phone]/1 1/03 iron binding capacity, total 299 ug/dL [facility] [phone]/0 9/19 pro brain natriuretic peptide 196 pg/mL [facility] 0-301 02/12 B-12, serum >2000 pg/mL [facility] [phone] High 02/12 hemoglobin A1C, blood, as % of total hemoglobin 6.1 % [facility] 4.8-5.6 High 02/12 iron saturation percent, serum 37 % [facility] 15-55 02/12 iron, serum 110 ug/dL [facility] 27-139 02/12 iron binding capacity, unsaturated 185 ug/dL [facility] [phone]/0 9/19 iron binding capacity, total 295 ug/dL [facility] [phone]/0 9/19 free thyroxine index 2.5 [facility] 1.2-4.9 02/12 triiodothyronine resin uptake 26 % [facility] 24-39 02/12 thyroxine, serum, total 9.5 ug/dL [facility] 4.5-12.0 02/12 lipoprotein, beta, serum, point, quantitative, calculated 41 mg/dL [facility] 0-99 02/12 very low density lipoproteins 27 mg/dL [facility] 5-40 02/12 HDL cholesterol, serum 64 mg/dL [facility] >39 02/12 triglyceride, serum, random 135 mg/dL [facility] 0-149 02/12 cholesterol, serum 132 mg/dL [facility] [phone]/0 9/19 calcium, serum 10.3 mg/dL [facility] 8.7-10.3 02/12 carbon dioxide, venous blood 20 mmol/L [facility] 20-29 02/12 chloride, serum 102 mmol/L [facility] 96-106 02/12 potassium, serum 4.8 mmol/L [facility] 3.5-5.2 02/12 sodium, serum 141 mmol/L [facility] 146-523 3027/0 9/19 urea nitrogen/creatinin e ratio, serum 14 [facility] 12-28 02/12 eGFR if 62 mL/min/{1.73 _m2} [facility] >59 02/12 eGFR if not 53 mL/min/{1.73 _m2} [facility] >59 Low 02/12 creatinine, serum 1.07 mg/dL [facility] 0.57-1.00 High 02/12 urea nitrogen, blood 15 mg/dL [facility] 8-27 02/12 blood glucose, random 185 mg/dL [facility] 65-99 High 07/16 pro brain natriuretic peptide 84 pg/mL [facility] 0-301 07/16 microalbumin/creat inine ratio, urine <6.4 mg/g creat [facility] 0.0-30.0 07/16 microalbumin, random, urine <3.0 ug/mL [facility] Not Estab. 07/16 creatinine, random, urine 46.7 mg/dL [facility] Not Estab. 07/16 calcium, serum 10.3 mg/dL [facility] 8.7-10.3 07/16 carbon dioxide, venous blood 20 mmol/L [facility] 18-29 07/16 chloride, serum 96 mmol/L [facility] 96-106 07/16 potassium, serum 4.9 mmol/L [facility] 3.5-5.2 07/16 sodium, serum 136 mmol/L [facility] 909-050 5741/0 2/20 urea nitrogen/creatinin e ratio, serum 10 [facility] 12-28 Low 07/16 eGFR if not 52 mL/min/{1.73 _m2} [facility] >59 Low 07/16 creatinine, serum 1.10 mg/dL [facility] 0.57-1.00 High 07/16 urea nitrogen, blood 11 mg/dL [facility] 8-27 07/16 blood glucose, random 103 mg/dL [facility] 65-99 High 09/29 free thyroxine index 6.3 ??g/dL [facility] 4.4 - 11.4 09/29 triiodothyronine uptake 1.1 TBI [facility] 0.8 - 1.3 09/29 thyroxine, serum, total 6.9 ??G/DL [facility] 4.5 - 11.7 09/29 thyroid stimulating hormone, serum 0.988 ??IU/ML [facility] 0.270 - 4.200 09/29 pro brain natriuretic peptide 227.6 pg/mL [facility] 0.0 - 125.0 High 09/29 ferritin, serum 398.3 ng/mL [facility] 13.0 - 150.0 High 09/29 anion gap, serum 14.8 [facility] - 09/29 albumin/globulin ratio, serum 1.8 g/dL [facility] 1.1 - 2.5 09/29 globulin, serum 2.4 [facility] 2.3 - 3.8 09/29 urea nitrogen/creatinin e ratio, serum 12.0 [facility] - 09/29 Estimated Glomerular Filtration Rate (calc) 58.8 (?) [facility] 59.0 - Low 09/29 chloride, serum 99.2 mmol/L [facility] 98.0 - 107.0 09/29 potassium, serum 4.8 mmol/L [facility] 3.5 - 5.1 09/29 sodium, serum 137.0 mmol/L [facility] 136.0 - 145.0 09/29 creatinine, serum 1.0 mg/dL [facility] 0.5 - 1.0 High 09/29 carbon dioxide, venous blood 23.0 mmol/L [facility] 23.0 - 31.0 09/29 albumin, serum 4.3 g/dL [facility] 3.5 - 5.2 09/29 calcium, serum 9.6 mg/dL [facility] 8.6 - 10.2 09/29 aspartate aminotransferase (SGOT), serum 13.0 1/L [facility] 0.0 - 32.0 09/29 alkaline phosphatase, serum 88.0 1/L [facility] 40.0 - 130.0 09/29 alanine aminotransferase (SGPT), serum 9.0 1/L [facility] 0.0 - 33.0 09/29 protein, total, serum 6.7 g/dL [facility] 6.6 - 8.7 09/29 bilirubin, serum, total 0.2 mg/dL [facility] 0.0 - 1.2 09/29 urea nitrogen, blood 12.0 mg/dL [facility] 8.0 - 23.0 09/29 blood glucose, random 120.0 mg/dL [facility] 74.0 - 99.0 High 09/29 iron, serum 108.0 ug/dL [facility] 25.0 - 156.0 09/29 iron saturation percent, serum 31.6 % [facility] 20.0 - 50.0 09/29 iron binding capacity, total 341.6 ug/dL [facility] 250.0 - 450.0 09/29 rapid plasma reagin antibody, serum [facility]ACT[facility] NON-[facility]ACTIV E 08/01 pro brain natriuretic peptide 59.1 pg/mL [facility] 0.0 - 125.0 08/01 ferritin, serum 80.6 ng/mL [facility] 13.0 - 150.0 08/01 anion gap, serum 16.2 [facility] - 08/01 albumin/globulin ratio, serum 1.7 g/dL [facility] 1.1 - 2.5 08/01 globulin, serum 2.6 [facility] 2.3 - 3.8 08/01 urea nitrogen/creatinin e ratio, serum 12.5 [facility] - 08/01 Estimated Glomerular Filtration Rate (calc) 76.3 (?) [facility] 59.0 - 08/01 chloride, serum 75.8 mmol/L [facility] 98.0 - 107.0 Low 08/01 potassium, serum 3.5 mmol/L [facility] 3.5 - 5.1 08/01 sodium, serum 122.0 mmol/L [facility] 136.0 - 145.0 Critical low 08/01 creatinine, serum 0.8 mg/dL [facility] 0.5 - 1.0 08/01 carbon dioxide, venous blood 30.0 mmol/L [facility] 23.0 - 31.0 08/01 albumin, serum 4.4 g/dL [facility] 3.5 - 5.2 08/01 calcium, serum 9.2 mg/dL [facility] 8.6 - 10.2 08/01 aspartate aminotransferase (SGOT), serum 14.0 1/L [facility] 0.0 - 32.0 08/01 alkaline phosphatase, serum 104.0 1/L [facility] 40.0 - 130.0 08/01 alanine aminotransferase (SGPT), serum 10.0 1/L [facility] 0.0 - 33.0 08/01 protein, total, serum 7.0 g/dL [facility] 6.6 - 8.7 08/01 bilirubin, serum, total 0.3 mg/dL [facility] 0.0 - 1.2 08/01 urea nitrogen, blood 10.0 mg/dL [facility] 8.0 - 23.0 08/01 blood glucose, random 81.0 mg/dL [facility] 74.0 - 99.0 08/01 red blood cell distribution width, size density 44.7 fL [facility] 08/01 immature granulocytes, percentage of total cells, blood 0.2 % [facility] 08/01 nucleated red blood cells as percent of blood leukocytes 0.0 % [facility] 08/01 red blood cell (erythrocyte) count, per high power field 0.0 10*3/UL [facility] 08/01 eosinophils as percent of blood leukocytes 0.3 % [facility] 08/01 neutrophils as percent of blood leukocytes 77.0 % [facility] 08/01 Absolute Neutrophils 11.1 CELLS/UL [facility] 1.5 - 7.8 High 08/01 basophils as percent of blood leukocytes 0.6 % [facility] 08/01 Absolute Basophils 0.1 CELLS/UL [facility] 0.0 - 0.2 08/01 monocytes as percent of blood leukocytes 7.1 % [facility] 08/01 Absolute Monocytes 1.0 CELLS/UL [facility] 0.2 - 1.0 High 08/01 lymphocytes as percent of blood leukocytes 14.8 % [facility] 08/01 Absolute Lymphocytes 2.1 CELLS/UL [facility] 0.9 - 3.9 08/01 mean platelet volume 10.8 (?) [facility] 08/01 platelet count 322.0 THOUSAND/UL [facility] 100.0 - 400.0 08/01 mean corpuscular hemoglobin concentration, RBC 34.0 G/DL [facility] 31.0 - 38.0 08/01 mean corpuscular hemoglobin, RBC 35.3 pg [facility] 25.0 - 35.0 High 08/01 mean corpuscular volume, RBC 103.6 fL [facility] 75.0 - 100.0 High 08/01 hematocrit, blood 37.3 % [facility] 35.0 - 55.0 08/01 hemoglobin, blood 12.7 g/dL [facility] 11.5 - 16.5 08/01 erythrocyte count, whole blood 3.6 MILLION/UL [facility] 3.5 - 5.5 08/01 iron, serum 48.0 ug/dL [facility] 25.0 - 156.0 08/01 iron saturation percent, serum 12.0 % [facility] 20.0 - 50.0 Low 08/01 iron binding capacity, total 399.0 ug/dL [facility] 250.0 - 450.0 08/01 hemoglobin A1C, blood, as % of total hemoglobin 6.1 % [facility] 4.0 - 5.6 High 06/03 free thyroxine index 9.7 ??g/dL [facility] 4.4 - 11.4 06/03 triiodothyronine uptake 1.0 TBI [facility] 0.8 - 1.3 06/03 thyroxine, serum, total 9.7 ??G/DL [facility] 4.5 - 11.7 06/03 thyroid stimulating hormone, serum 0.097 ??IU/ML [facility] 0.270 - 4.200 Low 06/03 pro brain natriuretic peptide 519.3 pg/mL [facility] 0.0 - 125.0 High 06/03 very low density lipoproteins 27.6 mg/dL [facility] 5.0 - 40.0 06/03 LDL/HDL (low-density lipoprotein/high-d ensity lipoprotein) ratio 0.8 RATIO [facility] - 06/03 lipoprotein, beta, serum, point, quantitative, calculated 45.4 (?) [facility] 0.0 - 100.0 06/03 HDL cholesterol, serum 59.0 mg/dL [facility] 45.0 - 65.0 06/03 cholesterol, serum 132.0 mg/dL [facility] 0.0 - 200.0 06/03 triglyceride, serum, fasting 138.0 mg/dL [facility] 0.0 - 150.0 06/03 anion gap, serum 20.6 [facility] - 06/03 albumin/globulin ratio, serum 1.4 g/dL [facility] 1.1 - 2.5 06/03 globulin, serum 2.9 [facility] 2.3 - 3.8 06/03 urea nitrogen/creatinin e ratio, serum 14.5 [facility] - 06/03 Estimated Glomerular Filtration Rate (calc) 52.8 (?) [facility] 59.0 - Low 06/03 chloride, serum 96.4 mmol/L [facility] 98.0 - 107.0 Low 06/03 potassium, serum 4.2 mmol/L [facility] 3.5 - 5.1 06/03 sodium, serum 141.0 mmol/L [facility] 136.0 - 145.0 06/03 creatinine, serum 1.1 mg/dL [facility] 0.5 - 1.0 High 06/03 carbon dioxide, venous blood 24.0 mmol/L [facility] 23.0 - 31.0 06/03 albumin, serum 4.2 g/dL [facility] 3.5 - 5.2 06/03 calcium, serum 9.9 mg/dL [facility] 8.6 - 10.2 06/03 aspartate aminotransferase (SGOT), serum 9.0 1/L [facility] 0.0 - 32.0 06/03 alkaline phosphatase, serum 62.0 1/L [facility] 40.0 - 130.0 06/03 alanine aminotransferase (SGPT), serum 5.0 1/L [facility] 0.0 - 33.0 06/03 protein, total, serum 7.1 g/dL [facility] 6.6 - 8.7 06/03 bilirubin, serum, total 0.5 mg/dL [facility] 0.0 - 1.2 06/03 urea nitrogen, blood 16.0 mg/dL [facility] 8.0 - 23.0 06/03 blood glucose, random 119.0 mg/dL [facility] 74.0 - 99.0 High 11/20 ferritin, serum 264.8 ng/mL [facility] 13.0 - 150.0 High 11/20 red blood cell distribution width, size density 59.3 fL [facility] - 11/20 immature granulocytes, percentage of total cells, blood 0.3 % [facility] - 11/20 nucleated red blood cells as percent of blood leukocytes 0.0 % [facility] - 11/20 red blood cell (erythrocyte) count, per high power field 0.0 10*3/UL [facility] - 11/20 eosinophils as percent of blood leukocytes 2.1 % [facility] - 11/20 neutrophils as percent of blood leukocytes 72.2 % [facility] - 11/20 Absolute Neutrophils 6.3 CELLS/UL [facility] 1.5 - 7.8 11/20 basophils as percent of blood leukocytes 0.6 % [facility] - 11/20 Absolute Basophils 0.1 CELLS/UL [facility] 0.0 - 0.2 11/20 monocytes as percent of blood leukocytes 7.1 % [facility]/20 Absolute Monocytes 0.6 CELLS/UL [facility] 0.2 - 1.0 11/20 lymphocytes as percent of blood leukocytes 17.7 % [facility] 11/20 Absolute Lymphocytes 1.5 CELLS/UL [facility] 0.9 - 3.9 11/20 mean platelet volume 10.6 (?) [facility] - 11/20 platelet count 287.0 THOUSAND/UL [facility] 100.0 - 400.0 11/20 mean corpuscular hemoglobin concentration, RBC 33.4 G/DL [facility] 31.0 - 38.0 11/20 mean corpuscular hemoglobin, RBC 36.6 pg [facility] 25.0 - 35.0 High 11/20 mean corpuscular volume, RBC 109.7 fL [facility] 75.0 - 100.0 High 11/20 hematocrit, blood 38.6 % [facility] 35.0 - 55.0 11/20 hemoglobin, blood 12.9 g/dL [facility] 11.5 - 16.5 11/20 erythrocyte count, whole blood 3.5 MILLION/UL [facility] 3.5 - 5.5 11/20 iron, serum 92.0 ug/dL [facility] 25.0 - 156.0 10/04 folate, serum 20.0 NG/MLM [facility] 5.6 - 45.8 10/04 vitamin b12, serum 2000.0 pg/mL [facility] 211.0 - 946.0 High 10/04 free thyroxine index 9.3 ??g/dL [facility] 4.4 - 11.4 10/04 triiodothyronine uptake 1.0 TBI [facility] 0.8 - 1.3 10/04 thyroxine, serum, total 9.3 ??G/DL [facility] 4.5 - 11.7 10/04 thyroid stimulating hormone, serum 0.870 ??IU/ML [facility] 0.270 - 4.200 10/04 pro brain natriuretic peptide 161.8 pg/mL [facility] 0.0 - 125.0 High 10/04 ferritin, serum 11.0 ng/mL [facility] 13.0 - 150.0 Low 10/04 iron binding capacity, total 418.0 (?) [facility] - 10/04 iron, serum 41.0 ug/dL [facility] 25.0 - 156.0 10/04 iron binding capacity, unsaturated 377.0 ??G/DL [facility] 112.0 - 347.0 High 10/04 anion gap, serum 13.7 [facility] - 10/04 albumin/globulin ratio, serum 2.7 g/dL [facility] 1.1 - 2.5 High 10/04 globulin, serum 2.5 [facility] 2.3 - 3.8 10/04 urea nitrogen/creatinin e ratio, serum 18.8 [facility] - 10/04 Estimated Glomerular Filtration Rate (calc) 76.3 (?) [facility] 59.0 - 10/04 chloride, serum 93.3 mmol/L [facility] 98.0 - 107.0 Low 10/04 potassium, serum 4.3 mmol/L [facility] 3.5 - 5.1 10/04 sodium, serum 134.0 mmol/L [facility] 136.0 - 145.0 Low 10/04 creatinine, serum 0.8 mg/dL [facility] 0.5 - 1.0 10/04 carbon dioxide, venous blood 27.0 mmol/L [facility] 23.0 - 31.0 10/04 albumin, serum 4.3 g/dL [facility] 3.5 - 5.2 10/04 calcium, serum 10.1 mg/dL [facility] 8.6 - 10.2 10/04 aspartate aminotransferase (SGOT), serum 13.0 1/L [facility] 0.0 - 32.0 10/04 alkaline phosphatase, serum 64.0 1/L [facility] 40.0 - 130.0 10/04 alanine aminotransferase (SGPT), serum 8.0 1/L [facility] 0.0 - 33.0 10/04 protein, total, serum 6.8 g/dL [facility] 6.6 - 8.7 10/04 bilirubin, serum, total 0.2 mg/dL [facility] 0.0 - 1.2 10/04 urea nitrogen, blood 15.0 mg/dL [facility] 8.0 - 23.0 10/04 blood glucose, random 73.0 mg/dL [facility] 74.0 - 99.0 Low 10/04 red blood cell distribution width, size density 56.9 fL [facility] 10/04 immature granulocytes, percentage of total cells, blood 0.6 % [facility] 10/04 nucleated red blood cells as percent of blood leukocytes 0.0 % [facility] 10/04 red blood cell (erythrocyte) count, per high power field 0.0 10*3/UL [facility] 10/04 eosinophils as percent of blood leukocytes 2.0 % [facility] 10/04 neutrophils as percent of blood leukocytes 63.9 % [facility] 10/04 Absolute Neutrophils 4.4 CELLS/UL [facility] 1.5 - 7.8 10/04 basophils as percent of blood leukocytes 1.0 % [facility] 10/04 Absolute Basophils 0.1 CELLS/UL [facility] 0.0 - 0.2 10/04 monocytes as percent of blood leukocytes 6.7 % [facility] 10/04 Absolute Monocytes 0.5 CELLS/UL [facility] 0.2 - 1.0 10/04 lymphocytes as percent of blood leukocytes 25.8 % [facility] - 10/04 Absolute Lymphocytes 1.8 CELLS/UL [facility] 0.9 - 3.9 10/04 mean platelet volume 11.2 (?) [facility] - 10/04 platelet count 357.0 THOUSAND/UL [facility] 100.0 - 400.0 10/04 mean corpuscular hemoglobin concentration, RBC 32.1 G/DL [facility] 31.0 - 38.0 10/04 mean corpuscular hemoglobin, RBC 35.3 pg [facility] 25.0 - 35.0 High 10/04 mean corpuscular volume, RBC 110.2 fL [facility] 75.0 - 100.0 High 10/04 hematocrit, blood 39.0 % [facility] 35.0 - 55.0 10/04 hemoglobin, blood 12.5 g/dL [facility] 11.5 - 16.5 10/04 erythrocyte count, whole blood 3.5 MILLION/UL [facility] 3.5 - 5.5 10/04 hemoglobin A1C, blood, as % of total hemoglobin 6.5 % [facility] 4.0 - 6.0 High 10/04 reticulocyte count, absolute 0.064 10*6 CELLS/UL [facility] - 10/04 reticulocyte count, blood, uncorrected 1.80 % [facility] 0.50 - 2.00 08/12 platelet count 288 10*3/mm3 [facility] 08/12 hematocrit, blood 38.3 % [facility] 08/12 international normalized ratio (INR) 1.0 [facility] 08/12 alanine aminotransferase (SGPT), serum 31 1/L [facility] 08/12 aspartate aminotransferase (SGOT), serum 16 1/L [facility] 08/12 creatinine, serum 0.81 mg/dL [facility] 08/12 potassium, serum 4.1 mmol/L [facility] 08/12 sodium, serum 128 mmol/L [facility] 07/30 calcium, serum 8.9 mg/dL [facility] 8.6-10.0 Normal 07/30 blood glucose, random 83 mg/dL [facility] 74-109 Normal 07/30 eGFR if 93 mL/min/{1.73 _m2} [facility] >60 Normal 07/30 eGFR if not 77 mL/min/{1.73 _m2} [facility] >60 Normal 07/30 urea nitrogen/creatinin e ratio, serum 20.0 ratio [facility] 8.0-25.0 Normal 07/30 creatinine, serum 0.8 mg/dL [facility] 0.50-0.90 Normal 07/30 urea nitrogen, blood 16 mg/dL [facility] 6-20 Normal 07/30 carbon dioxide, venous blood 22 mmol/L [facility] 22-29 Normal 07/30 chloride, serum 93 MEQ/L [facility] 98-107 Low 07/30 potassium, serum 4.1 MEQ/L [facility] 3.5-5.1 Normal 07/30 sodium, serum 133 MEQ/L [facility] 136-145 Low 06/11 prothrombin time (patient) 10.4 s [facility] 9.0-11.5 Normal 06/11 international normalized ratio (INR) 1.0 [facility] Normal 06/11 basophils as percent of blood leukocytes 0.6 % [facility] Normal 06/11 eosinophils as percent of blood leukocytes 1.5 % [facility] Normal 06/11 monocyte count, blood 7.0 % [facility] Normal 06/11 lymphocyte count, blood 21.9 % [facility] Normal 06/11 neutrophils as percent of blood leukocytes 69.0 % [facility] Normal 06/11 basophils, absolute, manual 49 cells/mcL [facility] 0-200 Normal 06/11 eosinophils, absolute, manual 122 cells/mcL [facility] 15-500 Normal 06/11 monocytes, absolute, manual 567 cells/mcL [facility] 200-950 Normal 06/11 lymphocytes, absolute 1774 CELLS/UL [facility] 850-3900 Normal 06/11 Absolute Neutrophil count 5589 cells/mcL [facility] 0393-3377 Normal 06/11 platelet count 245 THOUSAND/UL [facility] 140-400 Normal 06/11 red blood cell distribution width 15.6 % [facility] 11.0-15.0 High 06/11 mean corpuscular hemoglobin concentration, RBC 33.2 G/DL [facility] 32.0-36.0 Normal 06/11 mean corpuscular hemoglobin, RBC 34.3 pg [facility] 27.0-33.0 High 06/11 mean corpuscular volume, RBC 103.4 fL [facility] 80.0-100.0 High 06/11 hematocrit, blood 40.8 % [facility] 35.0-45.0 Normal 06/11 hemoglobin electrophoresis, blood 13.6 [facility] 11.7-15.5 Normal 06/11 erythrocyte (RBC) count 3.95 MILLION/UL [facility] 3.80-5.10 Normal 06/11 leukocyte (white blood cells) count, blood 8.1 THOUSAND/UL [facility] 3.8-10.8 Normal 06/11 calcium, serum 9.1 mg/dL [facility] 8.6-10.4 Normal 06/11 carbon dioxide, venous blood 27 mmol/L [facility] 19-30 Normal 06/11 chloride, serum 105 mmol/L [facility] 98-110 Normal 06/11 potassium, serum 4.1 mmol/L [facility] 3.5-5.3 Normal 06/11 sodium, serum 140 mmol/L [facility] 135-146 Normal 06/11 urea nitrogen/creatinin e ratio, serum NOT APPLICABLE (calc) [facility] 6-22 06/11 Estimated Glomerular Filtration Rate (calc) 81 mL/min/{1.73 _m2} [facility] > OR = 60 Normal 06/11 creatinine, serum 0.88 mg/dL [facility] 0.50-0.99 Normal 06/11 urea nitrogen, blood 13 mg/dL [facility] 7-25 Normal 06/11 blood glucose, random 133 mg/dL [facility] 65-99 High 06/30 alanine aminotransferase (SGPT), serum 9 1/L [facility] 06/30 aspartate aminotransferase (SGOT), serum 14 1/L [facility] 06/30 creatinine, serum 0.79 mg/dL [facility] 06/30 potassium, serum 3.9 mmol/L [facility] 06/30 sodium, serum 134 mmol/L [facility] 06/08 TOTAL NON-HDL-C (LDL VLDL) 54 [facility] 06/08 cholesterol/HDL ratio, serum 1.9 [facility] 06/08 cholesterol, serum 117 mg/dL [facility] 06/08 triglyceride, target level 150 mg/dL [facility] 06/08 HDL cholesterol, serum, target level 40 mg/dL [facility] 06/08 triglyceride, serum, fasting 77 mg/dL [facility] Normal 06/08 HDL cholesterol, serum 63 mg/dL [facility] Normal 06/08 LDL cholesterol, serum 38 mg/dL [facility] Normal 06/08 LDL target level 100 mg/dL [facility] 06/08 cholesterol, target level 200 mg/dL [facility] 07/12 triglyceride, serum, fasting 118 mg/dL [facility] 07/12 HDL cholesterol, serum 47 mg/dL [facility] 07/12 LDL cholesterol, serum 89 mg/dL [facility] 07/12 cholesterol, serum 160 mg/dL [facility] HISTORY OF MEDICATION USE Medication Status Instructions Dates Provider Indications Com ments doxycycline hyclate 100 mg capsule active 1 capsule twice a day 06/15 Lenny Davis Ellipta 100-62.5-25 mcg blister with device active Silvio Schulte MD Trulicity 0.75 mg/0.5 mL pen injector active Silvio Schulte MD oxycodone-acetam inophen 10-325 mg tablet active Silvio Schulte MD Jardiance 10 mg tablet active Silvio Schulte MD spironolactone 25 mg tablet active 05/28 Silvio Schulte MD Tradjenta 5 mg tablet active Silvio Schulte MD carvedilol 3.125 mg tablet active TAKE ONE TABLET BY MOUTH TWO TIMES a DAY 10/04 Jackie Marcelino Vascepa 1 gram capsule active TAKE TWO (2) CAPSULES BY MOUTH TWICE DAILY 09/02 Carla Rushing Kerendia 20 mg tablet active TAKE ONE (1) TABLET BY MOUTH EVERY DAY 08/25 Jackie Gruejulio Kerendia 10 mg tablet completed TAKE ONE (1) TABLET BY MOUTH EVERY DAY 06/17 - 08/25 Diana Bartholomew NP Kerendia 10 mg tablet completed TAKE 1 TABLET BY MOUTH EVERY DAY - 06/17 Eunice Schulz Corlanor 5 mg tablet active TAKE 1 TABLET BY MOUTH TWICE DAILY 12/18 [place] Grigsby Vascepa 1 gram capsule completed TAKE 2 CAPSULES BY MOUTH TWICE A DAY 11/23 - 09/02 Carla Rushing Entresto 24-26 mg tablet active TAKE ONE (1) TABLET BY MOUTH TWICE a DAY 10/02 Brooks Siddiqui Vascepa 0.5 gram capsule completed TAKE 4 CAPSULES BY MOUTH TWICE DAILY 07/16 - 11/23 Emilie Putnam Vascepa 1 gram capsule completed TAKE 2 CAPSULES BY MOUTH TWICE DAILY 07/08 - 07/16 Silvio Schulte MD Kerendia 10 mg tablet completed Take 1 tablet by mouth once a day 07/08 - Carla Rushing Entresto 49-51 mg tablet completed 1/2 tablet by mouth twice a day 09/15 - 10/02 Una Flynn 1.5 mg/0.5 mL pen injector completed Inject 0.5 ml subcutaneously once a week 08/21 - 08/21 Silvio Schulte MD #6, 90 days supply, Prescribed by [facility], Filled 08/05/2019 rosuvastatin 20 mg tablet active Take 1 tablet by mouth once a day 08/21 Silvio Schulte MD pantoprazole 40 mg tablet,delayed release (DR/EC) active Silvio Schulte MD Corlanor 5 mg tablet completed TAKE 1 TABLET BY MOUTH TWICE DAILY 08/10 - 08/05 Silvio Schulte MD Entresto 24-26 mg tablet completed TAKE ONE TABLET BY MOUTH TWO TIMES a DAY 08/08 - 09/15 Winter Dominique carvedilol 3.125 mg tablet completed TAKE ONE TABLET BY MOUTH TWO TIMES a DAY 07/24 - 08/01 Silvio Schulte MD FeroSul 325 mg (65 mg iron) tablet active TAKE ONE TABLET BY MOUTH ONCE a DAY 06/13 Jackie Marcelino Corlanor 5 mg tablet completed TAKE 1 TABLET BY MOUTH TWICE A DAY 05/28 - 08/10 Christian Lin cyanocobalamin (vitamin B-12) 1,000 mcg tablet completed Take 1 tablet by mouth once a day 07/18 - 08/21 [place] Grigsby albuterol sulfate 2.5 mg/3 mL (0.083 %) solution for nebulization active Inhale 1 vial four times a day 09/30 Silvio Schulte MD #300, 25 days supply, Prescribed by [facility], Filled 06/23/2019 Dexilant 60 mg capsule,biphase delayed releas completed Take 1 capsule by mouth once a day 01/14 - 08/21 Silvio Schulte MD #90, 90 days supply, Prescribed by [facility], Filled 07/13/2019 Basleobardo Montoya U-100 Insulin 100 unit/mL (3 mL) insulin pen active Inject 15 unit subcutaneously once a day 01/14 Silvio Schulte MD #15, 90 days supply, Prescribed by [facility] ROBLES, Filled 07/13/2019 ergocalciferol (vitamin D2) 1,250 mcg (50,000 unit) capsule active Take 1 capsule by mouth once a week 01/14 Silvio Schulte MD #12, 90 days supply, Prescribed by ALL[facility] ROBL[facility], Filled 07/16/2019 fluticasone propionate 50 mcg/actuation spray,suspension active Use 2 spray into both nostrils once a day 01/14 Silvio Schulte MD #48, 90 days supply, Prescribed by ALL[facility] ROBL[facility], Filled 07/16/2019 duloxetine 60 mg capsule,delayed release(DR/EC) active Take 1 capsule by mouth once a day 01/14 Silvio Schulte MD #90, 90 days supply, Prescribed by [facility] ROBL[facility], Filled 07/16/2019 Xigduo XR 5-1,000 mg tablet, IR - ER, biphasic 24hr completed Take 1 tablet by mouth twice a day 01/14 - 06/10 Silvio Schulte MD #180, 90 days supply, Prescribed by [facility] ROBL[facility], Filled 07/31/2019 aspirin 81 mg tablet,delayed release (DR/EC) active Take 1 tablet by mouth once a day 06/27 Tia Edmond Novolog Flexpen U-100 Insulin 100 unit/mL (3 mL) insulin pen active Inject 6 unit subcutaneously twice a day 08/04 Silvio Schulte MD #12, 90 days supply, Prescribed by [facility], Filled 08/04/2019 Trulicity 0.75 mg/0.5 mL pen injector completed Inject 0.5 ml subcutaneously once a week 01/14 - 08/21 Silvio Schulte MD #6, 90 days supply, Prescribed by [facility] RO[facility], Filled 08/05/2019 valacyclovir 500 mg tablet active Take 1 tablet by mouth every night 01/14 Silvio Schulte MD #90, 90 days supply, Prescribed by [facility] ROBL[facility], Filled 08/14/2019 levothyroxine 50 mcg tablet active Take 1 tablet by mouth once a day 01/14 Silvio Schulte MD #90, 90 days supply, Prescribed by [facility] ROBL[facility], Filled 08/14/2019 Ventolin HFA 90 mcg/actuation HFA aerosol inhaler completed Inhale 2 puff by mouth every four hours as needed 09/15 - 08/25 Diana Bartholomew [employer] #36, 33 days supply, Prescribed by TANIYA BARKLEY, Filled 09/16/2019 gabapentin 800 mg tablet active Take 1 tablet by mouth three times a day 01/14 Silvio Schulte MD #270, 90 days supply, Prescribed by ALL[facility] ROBLES, Filled 09/28/2019 sumatriptan succinate 100 mg tablet active Take 0.5-1 tablet by mouth every four hours as needed 08/31 Silvio Schulte MD #12, 30 days supply, Prescribed by ALL[facility] ROBL[facility], Filled 10/02/2019 ferrous sulfate 325 mg (65 mg iron) tablet completed Take 1 tablet by mouth once a day 07/08 - 06/13 Ki Dillontassa 8.4 gram powder in packet completed Dissolve once a day 10/12 - 08/21 Silvio Schulte MD hydrocodone-acet aminophen 5-325 mg tablet completed Take 1 tablet by mouth once a day 09/16 - 06/10 Silvio Schulte MD #30, 30 days supply, Prescribed by [facility], Filled 09/17/2019 Lasix 20 mg tablet completed 1 tablet by mouth once a day as needed 10/11 - 08/25 Diana Bartholomew NP rosuvastatin 5 mg tablet completed Take 1 tablet by mouth once a day 01/03 - 08/21 Silvio DILLONTASSA 8.4 GM ORAL PACKET completed one packet daily 10/07 - 10/11 Silvio Schulte MD carvedilol 3.125 mg tablet completed Take 1 tablet by mouth twice a day 06/30 - 07/24 Christian Lin LOSARTAN POTASSIUM 25 MG ORAL TABLET completed Take one tablet daily 10/06 - 10/11 Silvio Schulte MD albuterol sulfate 0.63 mg/3 mL solution for nebulization active as needed 10/06 Winter Dominique PANTOPRAZOLE SODIUM 40 MG INTRAVENOUS SOLUTION RECONSTITUTED completed one cap once daily 10/06 - 10/11 Silvio Schulte MD amitriptyline 25 mg tablet active 1 tablet once a day 10/06 Chastkelly Trip FUROSEMIDE 20 MG ORAL TABLET completed Take one tablet daily. 10/06 - 10/11 Silvio Schulte MD PREDNISONE 20 MG ORAL TABLET completed two tabs once daily 10/06 - 10/11 Silvio Schulte MD DOXYCYCLINE HYCLATE 100 MG ORAL CAPSULE completed one cap twice daily 10/06 - 10/11 Silvio Schulte MD magnesium oxide 400 mg (241.3 mg magnesium) tablet active Take 1 tablet by mouth twice a day 12/16 Renetta Viera theophylline 300 mg tablet extended release 12 hr active 1 twice a day 07/09 Jackie Marcelino TYLENOL WITH CODEINE #3 TABLET completed once a day 07/22 - 10/11 Silvio Schulte MD BASAGLAR KWIKPEN 100 UNIT/ML SUBCUTANEOUS SOLUTION PEN-INJECTOR completed inject 15 units once daily at night 01/16 - 10/06 Chastity Trip #3, 30 days supply, Filled 01/16/2018 ALDACTONE 25 MG ORAL TABLET completed take one tablet my mouth daily 06/24 - 07/15 Silvio Schulte MD MARINERA PLACEBO / RIVAROXABAN completed 07/22 - 02/10 Silvio Schulte MD Corlanor 5 mg tablet completed Take 1 tablet by mouth twice a day 01/01 - 05/28 Renetta Viera DEXILANT 60 MG ORAL CAPSULE DELAYED RELEASE completed once daily 06/02 - 10/11 Silvio Schulte MD CARVEDILOL 3.125 MG ORAL TABLET completed Take 1 Tablet Twice a Day. 11/23 - 12/11 Jackie Marcelino LASIX 20 MG ORAL TABLET completed one a day 10/03 - 07/31 Silvio Schulte MD Entresto 24-26 mg tablet completed Take 1 tablet by mouth twice a day 01/03 - 08/08 Silvio Schulte MD ProAir HFA 90 mcg/actuation HFA aerosol inhaler completed - 08/01 Silvio Schulte MD DOCUSATE SODIUM 100 MG ORAL TABLET completed 1 tablet twice daily - 12/11 Fede Raineydney AMITRIPTYLINE HCL 25 MG ORAL TABLET completed 1 tablet at bedtime - 12/11 Fede Raineydney CARISOPRODOL 350 MG ORAL TABLET completed 1 daily - 12/11 Jackie Marcelino THEOCHRON 300 MG ORAL TABLET EXTENDED RELEASE 12 HOUR completed 1 twice daily - 12/11 Fede Christine COREG 6.25 MG ORAL TABLET completed 1/2 twice a day - 11/23 Parth Olivera MD ergocalciferol (vitamin D2) 1,250 mcg (50,000 unit) capsule completed 1 tablet once a week - 08/21 Silvio Schulte MD KLOR-CON M10 10 MEQ ORAL TABLET EXTENDED RELEASE completed 2 TAB. DAILY - 12/11 Karol Horsesolo HYDROCODONE-ACET AMINOPHEN 10-325 MG ORAL TABLET completed one tab every 6 hrs (ordered by ortho) - 12/11 Jackie Marcelino VALIUM 5 MG ORAL TABLET completed 1 tab twice daily 07/30 - 12/11 Radha Don DIAZEPAM 5 MG ORAL TABLET completed 1 tab twice daily 07/30 - 12/11 Radha Don VALIUM 5 MG ORAL TABLET completed daily - 12/11 Radha Ochoa THEOCHRON 200 MG ORAL TABLET EXTENDED RELEASE 12 HOUR completed twice daily - 12/11 Karol Mtz LOSARTAN POTASSIUM 25 MG ORAL TABLET completed one tab by mouth daily 06/12 - Silvio Schulte MD COREG 3.125 MG ORAL TABLET completed ONE TAB. TWICE DAILY 06/25 - 12/11 Karol Horsesolo ASPIRIN EC 81 MG TABLET completed TAKE 1 TABLET BY MOUTH EVERY DAY 01/23 - 07/17 Sudha Ordonez NP cyanocobalamin (vitamin B-12) 1,000 mcg tablet extended release active Take 1 tablet by mouth twice a week 01/19 Silvio Serota MD LANTUS 100 UNIT/ML SUBCUTANEOUS SOLUTION completed 10 to 50 units four times daily - 12/11 Radha Ochoa diazepam 10 mg tablet active 1 tablet once a day 07/09 Winter Dominique NOVOLOG SOLUTION completed 6 unit twice a day 07/09 - 08/21 Jackie Marcelino LANTUS SOLOSTAR 100 UNIT/ML SUBCUTANEOUS SOLUTION PEN-INJECTOR completed 15 u at bedtime - 02/11 Brittany Durbin PANTOPRAZOLE SODIUM 40 MG ORAL TABLET DELAYED RELEASE completed 1 daily - 06/02 Ciera Castorena SOMA 350 MG ORAL TABLET completed 1 tab as needed 07/30 - 12/11 Radha Ochoa Januvia 100 mg tablet active once a day Renetta Viera METFORMIN HCL 1000 MG ORAL TABLET completed twice daily - 11/22 Silvio Schulte MD SPIRONOLACTONE-H CTZ 25-25 MG ORAL TABLET completed one tab by mouth daily 06/12 - 06/24 Ngozi Williamson RN Imitrex 100 mg tablet completed as needed - 08/21 Silvio Schulte MD VALTREX 500 MG ORAL TABLET completed daily - 11/22 Silvio Schulte MD SPIRIVA HANDIHALER 18 MCG INHALATION CAPSULE completed 2 times daily - 12/11 Jackie Marcelino SYNTHROID 50 MCG ORAL TABLET completed ONE TAB. DAILY 07/30 - 11/22 Silvio Schulte MD NEURONTIN 800 MG ORAL TABLET completed 2 tab twice daily 07/30 - 11/22 Silvio Schulte MD FLONASE 50 MCG/ACT NASAL SUSPENSION completed 2 spray once a day - 08/21 Silvio Schulte MD Advair Diskus 500-50 mcg/dose blister with device completed 1 puff twice a day - 08/21 Silvio Schulte MD CRESTOR 20 MG ORAL TABLET completed one tab once daily 10/03 - 10/11 Silvio Schulte MD CYMBALTA 60 MG ORAL CAPSULE DELAYED RELEASE PARTICLES completed 1 daily - 11/22 Silvio Schulte MD SOCIAL HISTORY Date Observation Value Provider personal history of marijuana use no Lenny Ramadan MD drug use no Lenny Benitez alcohol use no Lenny Benitez passive cigarette sm benjie exposure no Lenny Razo MD chewing tobacco use Never Lenny hernández MD smoking, year quit 2015 Lenny macario MD smoking, date started 1964 Lenny Razo MD smoking history, tot al pack/year 61 Lenny Razo MD smoking history, tot al pack/day 0.5 Lenny Razo MD cigarette use yes Lenny Razo MD smoking status Former smoker Lenny alba MD smoking history, tot al pack/year 61 Bettye Kinga personal history of marijuana use no Silvio Schulte MD drug use no Silvio Benitez alcohol use no Silvio Benitez passive cigarette sm benjie exposure no Silvio Schulte MD chewing tobacco use Never Silvio virk MD smoking, year quit 2015 Silvio izquierdo MD smoking, date started 1965 Silvio Schulte MD smoking history, tot al pack/year 59 Silvio Schulte MD smoking history, tot al pack/day 0.5 Silvio Schulte MD cigarette use yes Silvio Schulte MD smoking status Former smoker Silvio ross MD personal history of marijuana use no Diana Bartholomew NP drug use no Emilyvandana Mcdonough alcohol use no Emilyvandana Mcdonough passive cigarette sm benjie exposure no Emilyvandana Mcdonough chewing tobacco use Never Emily Jairo medeiros smoking status Former smoker Emily chaparro drug use no Emilyvandana Mcdonough alcohol use no Emilyvandana Mcdonough passive cigarette sm benjie exposure no Emily Ceasar chewing tobacco use Never Emily Jairo medeiros smoking status Never smoker Emily Ceasar smoking history, tot al pack/year 58 Camacho Romo RN social history E&M Children: 3 c kelsy shea currently smokes every day. 100 pack year Smoking History: Amarjit shea has never smoked. Silvio Schulte MD seatbelt usage 100 % [facility] caffeine use, averag e drinks per day 2 /d [facility] drug use no [facility] alcohol use no [facility] chewing tobacco use [facility] Never smoker [facility] social history E&M Children: 3 c kelsy shea currently smokes every day. 100 pack year Smoking History: Amarjit shea is a former smoker. Silvio Schulte MD social history reviewed E&M revi ewed - no changes required Silvio Schulte MD physical exercise, frequency, days per week 3 /wk Eunice Scuhlz passive cigarette sm benjie exposure no Eunice Schulz smoking, year quit 2015 Eunice [place] smoking, date started 1964 Brooks francisco Schulz smoking history, tot al pack/year 52 Eunice Schulz smoking history, tot al pack/day 0.5 Eunice [place] cigarette use yes Eunice Griffith nd smoking status Former smoker Eunice [facility] rajat social history reviewed E&M revi ewed - no changes required Luis F Frausto MD quit smoking, stage quit Silvio virk MD social history E&M Children: 3 c kelsy shea currently smokes every day. 100 pack year Smoking History: Amarjit shea is a former smoker. Silvio Schulte MD social history reviewed E&M revi ewed - no changes required Silvio Schulte MD physical exercise, frequency, days per week 3 /wk Jackie Sampsonsaskiatana passive cigarette sm benjie exposure no Jackie Marcelino smoking, year quit 2015 Jackie davisryandinamanny smoking, date started 1964 Jackie Cordovabrandonsaskiatana smoking history, tot al pack/year 52 Jackie Mamarvinmanny smoking history, tot al pack/day 0.5 Jackie Cordovabrandonsaskiatana cigarette use yes Jackie Ma tana smoking status Former smoker Jackie rob smoking history, tot al pack/year 52 Lavonshea Atkins physical exercise, frequency, days per week 3 /wk Lady Coats passive cigarette sm benjie exposure no Lady Coats smoking, year quit 2015 Lady F ox smoking, date started 1964 Felici a Coats smoking history, tot al pack/year 52 Lady Coats smoking history, tot al pack/day 0.5 Lady Coats cigarette use yes Lady Coats smoking status Former smoker Lady Coats social history E&M Children: 3 c kelsy Amarjit shea currently smokes every day. 100 pack year Smoking History: Amarjit shea is a former smoker. Silvio Schulte MD social history reviewed E&M revi ewed - no changes required Silvio Schulte MD physical exercise, frequency, days per week 3 /wk Brittany Ramakrishna passive cigarette sm benjie exposure no Brittany Ramakrishna smoking, year quit 2015 Brittany Bu sby smoking, date started 1964 Brittany Ramakrishna smoking history, tot al pack/year 52 Brittany Ramakrishna smoking history, tot al pack/day 0.5 Brittany Loby cigarette use yes Brittany Loby smoking status Former smoker Brittany Durbin quit smoking, stage quit Silvio virk MD physical exercise, frequency, days per week 3 /wk Chastity Trip alcohol use no [facility] sm benjie exposure no Ch[facility]ity Trip smoking, year quit 2016 [facility], [facility], tot al pack/day 0.5 [facility] Trip cigarette use yes [facility] Trip smoking status Former smoker [facility] Hog ue social history reviewed E&M ilya bravo - no changes required Leighton Reza MD social history E&M Children: 3 c kelsy shea currently smokes every day. 100 pack year Smoking History: Amarjit shea is a former smoker. Leighton Reza MD physical exercise, frequency, days per week 3 /wk Jackie Marcelino alcohol use no Jackie Aquino lder drug use none Jackie Aquino lder passive cigarette sm benjie exposure no Jackie Marcelino smoking, year quit 2015 Jackie alves smoking, date started 1964 Jackie Marcelino smoking history, tot al pack/year 52 Jackie Marcelino smoking history, tot al pack/day 0.5 Jackie Marcelino cigarette use yes Jackie fajardo smoking status Former smoker Jackie rob number of grandchildren Sadimitrios Reza MD social history reviewed E&M revi ewed - no changes required Leighton Reza MD social history E&M Children: 3 sravan shea currently smokes every day. 100 pack year Smoking History: Amarjit shea is a former smoker. Leighton Reza MD physical exercise, frequency, days per week 3 /wk Jackie Chari alcohol use no Jackie Aquino maxweller drug use none Jackie Aquino maxweller passive cigarette sm benjie exposure no Jackie Mamarvinmanny smoking, year quit 2015 Jackie Zamudio long smoking, date started 1964 Jackie Matana smoking history, tot al pack/year 52 Jackie Matana smoking history, tot al pack/day 0.5 Jackie Mamarvinmanny cigarette use yes Jackie fajardo smoking status Former smoker Jackie krugertana social history E&M Children: 3 c kelsy shea currently smokes every day. 100 pack year Smoking History: Amarjit shea is a former smoker. Silvio Schulte MD physical exercise, frequency, days per week 3 /wk Keripham Alcantar-Dameon alcohol use no Keri Alcantar- Dameon drug use none Keri Alcantar- Dameon passive cigarette sm benjie exposure no Keri Alcantar-Dameon smoking, year quit 2015 Keri bruno-Dameon smoking, date started 1964 Keri Alcantar-Dameon smoking history, tot al pack/year 52 Keri Alcantar-Dameon smoking history, tot al pack/day 0.5 Keri Alcantar-Dameon cigarette use yes Keripham Alcantar -Dameon smoking status Former smoker Keri sawant-Dameon social history reviewed E&M revi ewed - no changes required Keri Reyes social history E&M Children: 3 c kelsy shea currently smokes every day. 100 pack year Smoking History: Amarjit shea is a former smoker. Silvio Schulte MD social history reviewed E&M revi ewed - no changes required Silvio Schulte MD physical exercise, frequency, days per week 3 /wk Brittany Ramakrishna alcohol use no Brittany Newberg drug use none Brittany Newberg passive cigarette sm benjie exposure no Brittany Ramakrishna smoking, year quit 2015 Brittanycaitlyn Wu sby smoking, date started 1964 Brittany Newberg smoking history, tot al pack/year 52 Brittany Ramakrishna smoking history, tot al pack/day 0.5 Brittany Ramakrishna cigarette use yes Brittany Newberg smoking status Former smoker Brittany Newberg social history E&M Children: 3 c kelsy shea currently smokes every day. 100 pack year Smoking History: Amarjit shea is a former smoker. Silvio Schulte MD social history reviewed E&M revi ewed - no changes required Silvio Schulte MD physical exercise, frequency, days per week 3 /wk Chastity Trip alcohol use no Chastity Trip drug use none Chastity Trip passive cigarette sm benjie exposure no Chastity Trip smoking, year quit 2015 Chastity Trip smoking, date started 1964 Chasti ty Trip smoking history, tot al pack/year 52 Chastity Trip smoking history, tot al pack/day 0.5 Chastity Trip cigarette use yes Chastity Trip smoking status Former smoker Chastity Hog ue smoking history, tot al pack/year 52 Silvio Schulte MD social history reviewed E&M revi ewed - no changes required Silvio Schulte MD number of grandchildren Silvio Beyer social history E&M Children: 3 sravan shea currently smokes every day. 100 pack year Smoking History: Amarjit shea is a former smoker. Silvio Schulte MD social history reviewed E&M revi ewed - no changes required Silvio Schulte MD quit smoking, stage quit Silvio virk MD physical exercise, frequency, days per week 3 /wk Jackie Marcelino alcohol use no Jackie clarke drug use none Jackiepatricia arreola passive cigarette sm benjie exposure no Jackie Marcelino smoking, year quit 2015 Jackie alves smoking, date started 1964 Jackie Marcelino smoking history, tot al pack/year 52 Jackie Marcelino smoking history, tot al pack/day 0.5 Jackie Marcelino cigarette use yes Jackie fajardo smoking status Former smoker Jackie rob physical exercise, frequency, days per week 3 /wk Jackie Marcelino alcohol use no Jackie clarke drug use none Jackie Miles arreola passive cigarette sm benjie exposure no Jackie Marcelino smoking, year quit 2015 Jackie alves smoking, date started 1964 Jackie Marcelino smoking history, tot al pack/year 52 Jackie Marcelino smoking history, tot al pack/day 0.5 Jcakie Marcelino cigarette use yes Jackie fajardo smoking status Former smoker Jackie rob social history reviewed E&M revi ewed - no changes required Farhad Ewing MD smoking history, tot al pack/year 52 Zeynep Newton RN smoking, year quit 2015 Farhad melendrez MD physical exercise, frequency, days per week 3 /wk Farhad Ewing MD alcohol use no Farhad Benitez drug use none Farhad Benitez passive cigarette sm benjie exposure no Farhad Ewing MD smoking, date started 1964 Farhad Ewign MD smoking history, tot al pack/year 52 Farhad Ewing MD smoking history, tot al pack/day 0.5 Frahad Ewing MD cigarette use yes Farhad Ewing MD smoking status Former smoker Farhad benitez MD social history E&M Children: 3 c hildren Smoking History: P atient currently smokes every day. 100 pack year P atient has been counseled to quit. Farhad Ewing MD social history reviewed E&M revi ewed - no changes required Farhad Ewing MD number of grandchildren Farhad Beyer social history E&M Children: 3 c hildren Smoking History: P atient currently smokes every day. P atient has been counseled to quit. Silvio Schulte MD social history reviewed E&M revi ewed - no changes required Silvio Schulte MD physical exercise, frequency, days per week 3 /wk Ciera Castoerna alcohol use no Ciera Castorena drug use none Ciera Castorena smoking/tobacco cess ation, patient education and counseling yes Ciera Castorena passive cigarette sm benjie exposure no Ciera Castorena smoking, date started 1964 Jossue Castorena smoking history, tot al pack/year 52 Ciera Castorena smoking history, tot al pack/day 0.5 Ciera Castorena cigarette use yes Ciera Castorena smoking status Current every day smoker aMriel Castorena smoking history, tot al pack/year 52 Jass Solomon RN social history reviewed E&M revi ewed - no changes required Parth Olivera MD number of grandchildren Parth Amezquita smoking status Current every day smoker Mariel debi Amezquita physical exercise, frequency, days per week 3 /wk Silvio Schulte MD alcohol use no Silvio Benitez drug use none Silvio Benitez smoking/tobacco cess ation, patient education and counseling yes Silvio Schulte MD passive cigarette sm benjie exposure no Silvio Schulte MD smoking, date started 1964 Silvio Schulte MD smoking history, tot al pack/year 48 Silvio Schulte MD smoking history, tot al pack/day 0.5 Silvio Schulte MD cigarette use yes Silvio Schulte MD smoking status Current every day smoker H mina Schulte MD social history reviewed E&M revi ewed - no changes required Silvio Schulte MD social history reviewed E&M revi ewed - no changes required Silvio Schulte MD physical exercise, frequency, days per week 3 /wk Karol Horsey alcohol use no Karol Horsey drug use none Karol Horsey smoking/tobacco cess ation, patient education and counseling yes Karol Horsey passive cigarette sm benjie exposure no Karol Horsey smoking, date started 1964 Karol Horsey smoking history, tot al pack/year 48 Karol Horsey smoking history, tot al pack/day 0.5 Karol Horsey cigarette use yes Karol Horsey smoking status Current every day smoker S murray Mtz smoking/tobacco cess ation, patient education and counseling yes Silvio Schulte MD social history reviewed E&M ilya bravo - no changes required Silvio Schulte MD smoking, date started 1965 Angelica Vang smoking history, tot al pack/day 0.5 Angelica Vang cigarette use yes Angelica Vang smoking status Current every day smoker A marialuisa Vang drug use none Lenny Benitez social history reviewed E&M reviewed Lenny Razo MD smoking history, tot al pack/year 48 Radha Ochoa smoking history, tot al pack/year 48 Camacho Romo RN smoking history, tot al pack/year 48 Camacho Romo RN smoking history, tot al pack/year 48 Roro Zakiya smoking/tobacco cess ation, patient education and counseling yes Silvio Schulte MD social history reviewed E&M reviewed Silvio Schulte MD smoking history, tot al pack/year 48 Soco Bojorquez social history reviewed E&M reviewed Silvio Schulte MD smoking/tobacco cess ation, patient education and counseling yes Camacho Romo RN drug use no Camacho Romo RN passive cigarette sm benjie exposure no Camacho Romo RN smoking history, tot al pack/year 48 Camacho Romo RN smoking history, tot al pack/year 48 Camacho Romo RN smoking history, tot al pack/year 48 Silvio Schulte MD smoking history, tot al pack/year 48 Nadja Thompson smoking/tobacco cess ation, patient education and counseling yes Yesika Ventimiglia CASING INSPECTOR physical exercise, frequency, days per week 3 /wk Yesika Ventimiglia CASING INSPECTOR smoking history, tot al pack/day 1 Yesika Ventimiglia [facility] social history reviewed E&M reviewed Yesika Sandrashirleymiguel [facility] smoking history, tot al pack/year 48 Yesika Sandrashirleymiguel [facility] smoking/tobacco cess ation, patient education and counseling yes Silvio Schulte MD social history E&M C kelsy: 3 children Silvio Schulte MD number of children 3 children Silvio izquierdo MD social history reviewed E&M reviewed Silvio Schulte MD smoking history, tot al pack/day 2 Sarah Grafoney smoking history, tot al pack/year 47 Sarah Grafoney cigarette use yes Sarah Ellyn smoking, date started 1966 Joanie pabon Ellyn smoking status current every day smoker N allie Ellyn MENTAL STATUS Date Observation Value Provider assessment of judgme nt and insight E&M Alert and oriented to time, place and person. Mood and affect are normal. Lenny Razo MD assessment of judgme nt and insight E&M Alert and oriented to time, place and person. Mood and affect are normal. Silvio Schulte MD assessment of judgme nt and insight E&M Alert and oriented to time, place and person. Mood and affect are normal. Camacho Romo RN assessment of judgme nt and insight E&M Alert and oriented to time, place and person. Mood and affect are normal. 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 Mild plaque with less than 50% stenosis of the internal carotid arteries bilaterally. Silvio Schulte MD [id number],B, r esloved with magn eisum Silvio Schulte MD [id number],S, n eg dave n o cad by cath n eg ihs, neg ct p;e 15 and 16, neg uacr, neg aaa Silvio Schulte MD [id number], Silvio ross MD [id number],B, p ro 246, lvdep 18 on clath, ef 60 r a pressuer 14 Silvio Schulte MD [id number],S, n o significant gsv reflux. only left ssv reflux. small central veins on ivus bilaterally in the legs. conservative medical therapy or compression stockings reccommended Silvio Schulte MD [id number],S, Silvio ross MD [id number], Silvio Schulte MD [id number],B, H er updated medication list for this problem includes: Rosuvastatin 20 Mg Tablet (Rosuvastatin) ..... Take 1 tablet by mouth once a day Vascepa 1 Gram Capsule (Icosapent ethyl) ..... Take 2 capsules by mouth twice daily C HOL: 119 (05/07/2022) HDL: 64 (05/23/2021) CHOL (goal): 200 (06/08/2013) LDL (goal): 100 (06/08/2013) HDL (goal): 40 (06/08/2013) TG (goal): 150 (06/08/2013) Silvio Schulte MD [id number],S, s et a t 50, no rv pacing Silvio Schulte MD [id number],S, 6 0 Silvio Schulte MD [id number],C,60 Silvio palacios MD [id number],S, Silvioskye Baca vandana COLBERT [id number],S, Silvio ross MD [id number],S, n eg dave n o cad by cath n eg ihs, neg ct p;e 15 and 16, neg uacr, neg aaa Silvio Schulte MD [id number],C, H er updated medication list for this problem includes: Albuterol Sulfate 0.63 Mg/3 Ml Solution For Nebulization (Albuterol sulfate) ..... As needed Theophylline 300 Mg Tablet Extended Release 12 Hr (Theophylline) ..... 1 twice a day Proair Hfa 90 Mcg/actuation Hfa Aerosol Inhaler (Albuterol sulfate) Ventolin Hfa 90 Mcg/actuation Hfa Aerosol Inhaler (Albuterol sulfate) ..... Inhale 2 puff by mouth every four hours as needed Albuterol Sulfate 2.5 Mg/3 Ml (0.083 %) Solution For Nebulization (Albuterol sulfate) ..... Inhale 1 vial four times a day Silvio Schulte MD [id number],W,set a t 50, n o rv pacing Silvio Schulte MD [id number],S, 1 31 Silvio Schulte MD [id number],C,p ro 246, lvdep 18 on clath, ef 60 r a pressuer 14 Silvio Schulte MD [id number],B, 6 .3 Silvio Schulte MD [id number],S,59 Silvio palacios MD [id number],B, Silvio ross MD [id number],S, n o significant gsv reflux. only left ssv reflux. small central veins on ivus bilaterally in the legs. conservative medical therapy or compression stockings reccommended Silvio Schulte MD [id number],S, T he patient is between 55-77 years old and has smoked at least 30 pack years. The patient is either a current smoker or has quit within the past 15 years. T he patient is recommended to have low dose CT scan for lung cancer screening. Has been counseled regarding the importance of tobacco cessation and abstinence. Shared decision making during this office visit included discussion of the benefits and harms of screening, possible future recommendations of follow-up diagnostic testing, and total amount of radiation exposure. The patient was recommended to have annual low dose CT scan for lung cancer screening and is willing to undergo diagnosis and treatment. Silvio Schulte MD [id number],S, Luis F snow MD [id number],S, Luis F snow MD [id number],C,n o significant gsv reflux. only left ssv reflux. small central veins on ivus bilaterally in the legs. conservative medical therapy or compression stockings reccommended Luis F Frausto MD [id number],C,L OW BP reduce entresto to resume lasix. Luis F Frausto MD [id number],C,Lasix 20 mg d aily resume Luis F Frausto MD [id number],C, H aving swelling in the ankles and legs bilaterally. Worse in hernan afternoon. I discussed with her using compression stockingsWill obtain venous duplex of the LEs with reflux. If normal, GSV ablation in future. If not, iliac vein stengin Luis F Frausto MD [id number],C,ra pressue 14 on limted rch Silvio Schulte MD [id number],C,n ml por ef 60 la pressue is 14 on limted rhc, lvedp 18 on old cath Silvio Schulte MD [id number],C,b akash anders, neg toniig vd in 14, ra is 14 Silvio Schulte MD [id number],S, Silvio ross MD [id number],S, Silvio ross MD [id number],B, Silvio ross MD [id number],S, T he patient is between 55-77 years old and has smoked at least 30 pack years. The patient is either a current smoker or has quit within the past 15 years. T he patient is recommended to have low dose CT scan for lung cancer screening. Has been counseled regarding the importance of tobacco cessation and abstinence. Shared decision making during this office visit included discussion of the benefits and harms of screening, possible future recommendations of follow-up diagnostic testing, and total amount of radiation exposure. The patient was recommended to have annual low dose CT scan for lung cancer screening and is willing to undergo diagnosis and treatment. Silvio Schulte MD [id number],S,p ro 285 nml tsh n o cad by cath n o venous insfuff, neg ihs, neg ct p;e 15 and 16, neg uacr, neg aaa Silvio Schulte MD [id number],S,no venoud ins uff Silvio Schulte MD [id number],S, Silvio ross MD [id number],S, Silvio ross MD [id number],S, T he patient is between 55-77 years old and has smoked at least 30 pack years. The patient is either a current smoker or has quit within the past 15 years. T he patient is recommended to have low dose CT scan for lung cancer screening. Has been counseled regarding the importance of tobacco cessation and abstinence. Shared decision making during this office visit included discussion of the benefits and harms of screening, possible future recommendations of follow-up diagnostic testing, and total amount of radiation exposure. The patient was recommended to have annual low dose CT scan for lung cancer screening and is willing to undergo diagnosis and treatment. Silvio Schulte MD [id number],S,p ro 285 nml tsh n o cad by cath n o venous insfuff, neg ihs, neg ct p;e 15 and 16, neg uacr, neg aaa Silvio Schulte MD [id number],S, Silvio ross MD [id number],S,nml pro ef 60 Silvio Schulte MD [id number],B,hsd infusion up to date on colon Silvio Schulte MD [id number],C,6.3 Silvio izquierdo MD [id number],S, H er updated medication list for this problem includes: Rosuvastatin 5 Mg Tablet (Rosuvastatin) ..... Take 1 tablet by mouth once a day Barb Montemayor NP [id number],S, H er updated medication list for this problem includes: Levothyroxine 25 Mcg Tablet (Levothyroxine) ..... Take 1 tablet by mouth once a day Barb Montemayor NP [id number],S, H er updated medication list for this problem includes: Entresto 24-26 Mg Tablet (Sacubitril-valsartan) ..... Take 1 tablet by mouth twice a day Basaglar Kwikpen U-100 Insulin 100 Unit/ml (3 Ml) Insulin Pen (Insulin glargine) ..... Inject 15 unit subcutaneously once a day Januvia 100 Mg Tablet (Sitagliptin) ..... Once a day Aspirin 81 Mg Tablet,delayed Release (dr/ec) (Aspirin) ..... Take 1 tablet by mouth once a day Trulicity 0.75 Mg/0.5 Ml Pen Injector (Dulaglutide) ..... Inject 0.5 ml subcutaneously once a week Novolog Flexpen U-100 Insulin 100 Unit/ml (3 Ml) Insulin Pen (Insulin aspart u-100) ..... Inject 6 unit subcutaneously twice a day Xigduo Xr 5-1,000 Mg Tablet, Ir - Er, Biphasic 24hr (Dapagliflozin-metformin) ..... Take 1 tablet by mouth twice a day Barb Montemayor NP [id number],S, Barb Sim Alba P [id number],S, Barb Sim N P [id number],S, Barbsolo Alba P [id number],S, Barb Russellyan N P [id number],S, Barb Russellscottvandana N P [id number],S, H er updated medication list for this problem includes: Albuterol Sulfate 0.63 Mg/3 Ml Solution For Nebulization (Albuterol sulfate) ..... As needed Theophylline 300 Mg Tablet Extended Release 12 Hr (Theophylline) ..... 1 twice a day Proair Hfa 90 Mcg/actuation Hfa Aerosol Inhaler (Albuterol sulfate) Advair Diskus 500-50 Mcg/dose Blister With Device (Fluticasone propion-salmeterol) ..... 1 puff twice a day Ventolin Hfa 90 Mcg/actuation Hfa Aerosol Inhaler (Albuterol sulfate) ..... Inhale 2 puff by mouth every four hours as needed Albuterol Sulfate 2.5 Mg/3 Ml (0.083 %) Solution For Nebulization (Albuterol sulfate) ..... Inhale 1 vial four times a day Barb Montemayor NP [id number],S, Barb Sim Alba P [id number],S, Barb Alba P [id number],C,mild pr and t r Silvio Schulte MD [id number],C,nml pro and e f Jluis Schulte MD Take your medication s every day as directed. Failing to take your medication properly can have a negative impact on your treatment. Please monitor your blood pressure and heart rate regularly, at least weekly. Sit quietly for 5 minutes before taking your blood pressure and heart rate. Recommend a healthy diet plan which would include lots of vegetables and fruits, poultry and fish, low fat dairy products. It would include lower quantities of carbohydrates, like breads, potatoes, rice and pasta. Only small amounts of sweets should be included. Recommend a low salt, or no added salt diet. Exercise of at least 3 times a week is recommended. Even small amounts of exercise regularly can be less intimidating but still beneficial. Please contact us if you have new Chest Pain, Shortness of Breath, Palpitations, Dizziness, or Edema. [facility] Silvio Schulte MD Cardiology:at colleen set at 50 nad not pacin g Silvio Schulte MD Cardiology: p er dr romel coreas 25 Silvio Schulte MD Cardiology: 5 3 Silvio Schulte MD Cardiology: 6 .6 6 .6 Silvio Schulte MD Cardiology: h sd infusion up to date on colon Silvio Schulte MD Cardiology:class 2 e cho nml pro 400, lvedp 18 Silvio Schulte MD Cardiology Silvio Schulte MD Cardiology:NEG TSH n eg dave n o cad by cath n eg ihs, neg ct p;e 15 and 16 , neg aaa Silvio Schulte MD Cardiology Silvio Schulte MD Cardiology Silvio Schulte MD Cardiology Silvio Schulte MD :echo nml pro 400, lvedp 18 Yudelka Schulte MD Cardiology:CHOL: 92 (08/02/2023) LDL: 32 (08/02/2023) HDL: 64 (05/23/2021) T (08/02/2023) C HOL (goal): 200 (06/08/2013) LDL (goal): 100 (06/08/2013) HDL (goal): 40 (06/08/2013) TG (goal): 150 (06/08/2013) Her updated medication list for this problem includes: Vascepa 1 Gram Capsule (Icosapent ethyl) ..... Take 2 capsules by mouth twice a day Rosuvastatin 20 Mg Tablet (Rosuvastatin) ..... Take 1 tablet by mouth once a day Diana Bartholomew NP Cardiology: C HOL: 92 (08/02/2023) LDL: 32 (08/02/2023) HDL: 64 (05/23/2021) T (08/02/2023) C HOL (goal): 200 (06/08/2013) LDL (goal): 100 (06/08/2013) HDL (goal): 40 (06/08/2013) TG (goal): 150 (06/08/2013) Her updated medication list for this problem includes: Vascepa 1 Gram Capsule (Icosapent ethyl) ..... Take 2 capsules by mouth twice a day Rosuvastatin 20 Mg Tablet (Rosuvastatin) ..... Take 1 tablet by mouth once a day Diana Bartholomew NP Cardiology: a ppropriate device function at last device check 07/2023 Diana Bartholomew NP Cardiology:The patie nt is between 50-77 years old and has smoked at least 20 pack years. The patient is either a current smoker or has quit within the past 15 years. T he patient is recommended to have low dose CT scan for lung cancer screening. Has been counseled regarding the importance of tobacco cessation and abstinence. Shared decision making during this office visit included discussion of the benefits and harms of screening, possible future recommendations of follow-up diagnostic testing, and total amount of radiation exposure. The patient was recommended to have annual low dose CT scan for lung cancer screening and is willing to undergo diagnosis and treatment. Diana Bartholomew NP Cardiology:per dr romel stallworth NP Cardiology: n eg dave n o cad by cath n eg ihs, neg ct p;e 15 and 16 , neg aaa Diana Bartholomew NP Cardiology:6.6 6 .6 [facility]:ef 60 pro 400, lvepd 18 [facility] need nod fu ct:pro 400, lvvedp 1 8, ef 60, ra 14 Silvio Schulte MD need nod fu ct:6.6 iSlvio Schulte MD need nod fu ct:53 Silvio Schulte MD Cardiology Silvio Schulte MD Cardiology Silvio Schulte MD Cardiology:b12 ok on rx and rpr neg Silvio Schulte MD Cardiology: h sd infusion up to date on colon Silvio Schulte MD Cardiology: n eg dave n o cad by cath n eg ihs, neg ct p;e 15 and 16, neg uacr, neg aaa Silvio Schulte MD Cardiology: p ro 246, lvdep 18 on clath, ef 60 r a pressuer 14 Silvio Schulte MD Cardiology: p ro 246, lvdep 18 on clath, ef 60 r a pressuer 14 Silvio Schulte MD Cardiology: 6 .3 Silvio Schulte MD Cardiology: 1 . Mild plaque with less than 50% stenosis of the internal carotid arteries bilaterally. Silvio Schulte MD Cardiology:others do ing ct d ue for one mar 19 Silvio Schulte MD Cardiology Silvio Schulte MD Cardiology: 6 8 Silvio Schulte MD Cardiology: s et a t 50, no rv pacing Silvio Schulte MD :68 Silvio Schulte MD Cardiology: h sd infusion up to date on colon Silvio Schulte MD Cardiology: 1 . Mild plaque with less than 50% stenosis of the internal carotid arteries bilaterally. Silvio Schulte MD Cardiology: r esloved with magn eisum Silvio Schulte MD Cardiology: n eg dave n o cad by cath n eg ihs, neg ct p;e 15 and 16, neg uacr, neg aaa Silvio Schulte MD Cardiology Silvio Schulte MD Cardiology: p ro 246, lvdep 18 on clath, ef 60 r a pressuer 14 Silvio Schulte MD Cardiology: n o significant gsv reflux. only left ssv reflux. small central veins on ivus bilaterally in the legs. conservative medical therapy or compression stockings reccommended Silvio Schulte MD Cardiology Silvio Schulte MD Cardiology Silvio Schulte MD Cardiology: H er updated medication list for this problem includes: Rosuvastatin 20 Mg Tablet (Rosuvastatin) ..... Take 1 tablet by mouth once a day Vascepa 1 Gram Capsule (Icosapent ethyl) ..... Take 2 capsules by mouth twice daily C HOL: 119 (05/07/2022) HDL: 64 (05/23/2021) CHOL (goal): 200 (06/08/2013) LDL (goal): 100 (06/08/2013) HDL (goal): 40 (06/08/2013) TG (goal): 150 (06/08/2013) Silvio Schulte MD Cardiology: s et a t 50, no rv pacing Silvio Schulte MD Cardiology: 6 0 Silvio Schulte MD :60 Silvio Schulte MD Cardiologyb Silvio Schulte MD Cardiologyb Silvio Schulte MD Cardiologyb: n eg dave n o cad by cath n eg ihs, neg ct p;e 15 and 16, neg uacr, neg aaa Silvio Schulte MD Cardiologyb: H er updated medication list for this problem includes: Albuterol Sulfate 0.63 Mg/3 Ml Solution For Nebulization (Albuterol sulfate) ..... As needed Theophylline 300 Mg Tablet Extended Release 12 Hr (Theophylline) ..... 1 twice a day Proair Hfa 90 Mcg/actuation Hfa Aerosol Inhaler (Albuterol sulfate) Ventolin Hfa 90 Mcg/actuation Hfa Aerosol Inhaler (Albuterol sulfate) ..... Inhale 2 puff by mouth every four hours as needed Albuterol Sulfate 2.5 Mg/3 Ml (0.083 %) Solution For Nebulization (Albuterol sulfate) ..... Inhale 1 vial four times a day Silvio Schulte MD Cardiologyb:set a t 50, no rv pa cing Silvio Schulte MD Cardiologyb: 1 31 Silvio Schulte MD Cardiologyb:pro 246, lvdep 18 on clath, ef 60 r a pressuer 14 Silvio Schulte MD Cardiologyb: 6 .3 Silvio Schulte MD Cardiologyb:59 Silvio Schulte MD Cardiologyb Silvio Schulte MD Cardiologyb: n o significant gsv reflux. only left ssv reflux. small central veins on ivus bilaterally in the legs. conservative medical therapy or compression stockings reccommended Silvio Schulte MD Cardiologyb: T he patient is between 55-77 years old and has smoked at least 30 pack years. The patient is either a current smoker or has quit within the past 15 years. T he patient is recommended to have low dose CT scan for lung cancer screening. Has been counseled regarding the importance of tobacco cessation and abstinence. Shared decision making during this office visit included discussion of the benefits and harms of screening, possible future recommendations of follow-up diagnostic testing, and total amount of radiation exposure. The patient was recommended to have annual low dose CT scan for lung cancer screening and is willing to undergo diagnosis and treatment. Silvio Schulte MD Cardiology Luis F Frausto MD Cardiology Luis F Frausto MD Cardiology:no signif icant gsv reflux. only left ssv reflux. small central veins on ivus bilaterally in the legs. conservative medical therapy or compression stockings reccommended Luis F Frausto MD Cardiology:LOW BP reduce entrest o to resume lasix. Luis F Frausto MD Cardiology:Lasix 20 mg daily res ume Luis F Frausto MD Cardiology: H aving swelling in the ankles and legs bilaterally. Worse in hernan afternoon. I discussed with her using compression stockingsWill obtain venous duplex of the LEs with reflux. If normal, GSV ablation in future. If not, iliac vein stengin Luis F Frausto MD :ra pressue 14 on limted rch Christiano Schulte MD :nml por ef 60 la pr essue is 14 on limted rhc, lvedp 18 on old cath Silvio Schulte MD :bilat aggarwal luis carloser, neg stanig v d in 14, ra is 14 Silvio Schulte MD Cardiology Silvio Schulte MD Cardiology Silvio Schulte MD Cardiology Silvio Schulte MD Cardiology: T he patient is between 55-77 years old and has smoked at least 30 pack years. The patient is either a current smoker or has quit within the past 15 years. T he patient is recommended to have low dose CT scan for lung cancer screening. Has been counseled regarding the importance of tobacco cessation and abstinence. Shared decision making during this office visit included discussion of the benefits and harms of screening, possible future recommendations of follow-up diagnostic testing, and total amount of radiation exposure. The patient was recommended to have annual low dose CT scan for lung cancer screening and is willing to undergo diagnosis and treatment. Silvio Schulte MD Cardiology:pro 285 n ml tsh n o cad by cath n o venous insfuff, neg ihs, neg ct p;e 15 and 16, neg uacr, neg aaa Silvio Schulte MD Cardiology:no venoud insuff Yudelka Schulte MD Cardiology Silvio Schulte MD Cardiology Silvio Schulte MD Cardiology: T he patient is between 55-77 years old and has smoked at least 30 pack years. The patient is either a current smoker or has quit within the past 15 years. T he patient is recommended to have low dose CT scan for lung cancer screening. Has been counseled regarding the importance of tobacco cessation and abstinence. Shared decision making during this office visit included discussion of the benefits and harms of screening, possible future recommendations of follow-up diagnostic testing, and total amount of radiation exposure. The patient was recommended to have annual low dose CT scan for lung cancer screening and is willing to undergo diagnosis and treatment. Silvio Schulte MD Cardiology:pro 285 n ml tsh n o cad by cath n o venous insfuff, neg ihs, neg ct p;e 15 and 16, neg uacr, neg aaa Silvio Schulte MD Cardiology Silvio Schulte MD Cardiology:nml pro ef 60 Silvio Schulte MD Cardiology:hsd infusion up to da te on colon Silvio Schulte MD :6.3 Silvio Schulte MD Cardiology: H er updated medication list for this problem includes: Rosuvastatin 5 Mg Tablet (Rosuvastatin) ..... Take 1 tablet by mouth once a day Barb Montemayor NP Cardiology: H er updated medication list for this problem includes: Levothyroxine 25 Mcg Tablet (Levothyroxine) ..... Take 1 tablet by mouth once a day Barb Montemayor NP Cardiology: H er updated medication list for this problem includes: Entresto 24-26 Mg Tablet (Sacubitril-valsartan) ..... Take 1 tablet by mouth twice a day Basaglar Kwikpen U-100 Insulin 100 Unit/ml (3 Ml) Insulin Pen (Insulin glargine) ..... Inject 15 unit subcutaneously once a day Januvia 100 Mg Tablet (Sitagliptin) ..... Once a day Aspirin 81 Mg Tablet,delayed Release (dr/ec) (Aspirin) ..... Take 1 tablet by mouth once a day Trulicity 0.75 Mg/0.5 Ml Pen Injector (Dulaglutide) ..... Inject 0.5 ml subcutaneously once a week Novolog Flexpen U-100 Insulin 100 Unit/ml (3 Ml) Insulin Pen (Insulin aspart u-100) ..... Inject 6 unit subcutaneously twice a day Xigduo Xr 5-1,000 Mg Tablet, Ir - Er, Biphasic 24hr (Dapagliflozin-metformin) ..... Take 1 tablet by mouth twice a day Barb Montemayor NP Cardiology Barb Montemayor NP Cardiology Barb Montemayor NP Cardiology Barb Montemayor NP Cardiology Barb Montemayor NP Cardiology Barb Montemayor NP Cardiology: H er updated medication list for this problem includes: Albuterol Sulfate 0.63 Mg/3 Ml Solution For Nebulization (Albuterol sulfate) ..... As needed Theophylline 300 Mg Tablet Extended Release 12 Hr (Theophylline) ..... 1 twice a day Proair Hfa 90 Mcg/actuation Hfa Aerosol Inhaler (Albuterol sulfate) Advair Diskus 500-50 Mcg/dose Blister With Device (Fluticasone propion-salmeterol) ..... 1 puff twice a day Ventolin Hfa 90 Mcg/actuation Hfa Aerosol Inhaler (Albuterol sulfate) ..... Inhale 2 puff by mouth every four hours as needed Albuterol Sulfate 2.5 Mg/3 Ml (0.083 %) Solution For Nebulization (Albuterol sulfate) ..... Inhale 1 vial four times a day Barb Montemayor NP Cardiology Barb Montemayor NP Cardiology Barb Montemayor NP :mild pr and tr Silvio Schulte MD :nml pro and ef 60 Silvio Schulte MD Cardiology:k stopepd Silvio easton MD Cardiology Silvio Schulte MD Cardiology:no cad by cath n o venous insfuff, neg ihs, neg ct p;e 15 and 16, neg uacr, neg aaa Silvio Schulte MD Cardiology Silvio Schulte MD Cardiology Silvio Schulte MD Cardiology:55 ef N ML POR Silvio Schulte MD Cardiology: T he patient is between 55-77 years old and has smoked at least 30 pack years. The patient is either a current smoker or has quit within the past 15 years. T he patient is recommended to have low dose CT scan for lung cancer screening. Has been counseled regarding the importance of tobacco cessation and abstinence. Shared decision making during this office visit included discussion of the benefits and harms of screening, possible future recommendations of follow-up diagnostic testing, and total amount of radiation exposure. The patient was recommended to have annual low dose CT scan for lung cancer screening and is willing to undergo diagnosis and treatment. Silvio Schulte MD Cardiology: 5 .8 The following medications were removed from the medication list: Metformin Hcl 1000 Mg Oral Tablet (Metformin hcl) ..... Twice daily Her updated medication list for this problem includes: Basaglar Kwikpen 100 Unit/ml Subcutaneous Solution Pen-injector (Insulin glargine) ..... Inject 15 units subq daily Xigduo Xr 5-1000 Mg Oral Tablet Extended Release 24 Hour (Dapagliflozin-metformin hcl) ..... Take 1 tablet by mouth twice a day Aspirin Low Dose 81 Mg Oral Tablet Delayed Release (Aspirin) ..... Take 1 tablet by mouth every day Novolog Flexpen 100 Unit/ml Subcutaneous Solution Pen-injector (Insulin aspart) ..... Inject 6 units subcutaneously twice a day Trulicity 0.75 Mg/0.5ml Subcutaneous Solution Pen-injector (Dulaglutide) ..... Inject 0.5ml subq once a week on mondays Entresto 24 Mg-26 Mg Tablet (Sacubitril-valsartan) ..... Take 1 tablet by mouth twice a day Januvia 100 Mg Oral Tablet (Sitagliptin phosphate) ..... Daily Novolog Solution (Insulin aspart soln) ..... 6 units twice a day Aspirin Ec 81 Mg Tablet (Aspirin) ..... Take 1 tablet by mouth every day Silvio Schulte MD Cardiology: 1 . Mild plaque with less than 50% stenosis of the internal carotid arteries bilaterally. Silvio Schulte MD Cardiology:on pills , to get infusion h as had hodan acevedo, number ok now, up to date on colaon Silvio Schulte MD Cardiology: L abs Reviewed: T SH: 1.510 (10/13/2019) Total T4: 7.2 (10/13/2019) H gBA1c: 5.8 (10/07/2018) C hol: 140 (10/13/2019) HDL: 64 (10/13/2019) Her updated medication list for this problem includes: Synthroid 50 Mcg Oral Tablet (Levothyroxine sodium) ..... One tab. daily Silvio Schulte MD Cardiology: s et 50, no rv pacing Silvio Schulte MD Cardiology:pap 38 Silvio Schulte MD :5.5 Silvio Schulte MD :neg igg Silvio Schulte MD :nmubers ok Silvio Schulte MD Cardiology Silvio Schulte MD Cardiology:The patie nt is between 55-77 years old and has smoked at least 30 pack years. The patient is either a current smoker or has quit within the past 15 years. T he patient is recommended to have low dose CT scan for lung cancer screening. Has been counseled regarding the importance of tobacco cessation and abstinence. Shared decision making during this office visit included discussion of the benefits and harms of screening, possible future recommendations of follow-up diagnostic testing, and total amount of radiation exposure. The patient was recommended to have annual low dose CT scan for lung cancer screening and is willing to undergo diagnosis and treatment. Silvio Schulte MD Cardiology: b 12 okd on rx, rpr neg Silvio Schulte MD Cardiology:5.8 Silvio Schulte MD Cardiology:on velssa in past Christiano vey Eris COLBERT Cardiology Silvio Schulte MD Cardiology:pro normailzed Silvio Schulte MD Cardiology Silvio Schulte MD Cardiology:set 50, no rv pacing Silvio Schulte MD Cardiology:no venous insfuff, neg ihs, neg ct p;e 15 and 16, neg uacr, neg aaa Silvio Schulte MD Cardiology:resloved with magn ei sum Silvio Schulte MD Cardiology: h as had mult infusin, number ok now, up to date on colaon Silvio Schulte MD Cardiology:follow with CT Yesika Floresmimiguel [facility] Cardiology:check lip id panel H er updated medication list for this problem includes: Crestor 5 Mg Oral Tablet (Rosuvastatin calcium) ..... One tab. daily Yesika [facility] Cardiology:Will repe at Hgb A1C H er updated medication list for this problem includes: Basaglar Kwikpen 100 Unit/ml Subcutaneous Solution Pen-injector (Insulin glargine) ..... Inject 15 units once daily at night Entresto 24-26 Mg Oral Tablet (Sacubitril-valsartan) ..... Twice a day Metformin Hcl 1000 Mg Oral Tablet (Metformin hcl) ..... Twice daily Januvia 100 Mg Oral Tablet (Sitagliptin phosphate) ..... Daily Novolog Solution (Insulin aspart soln) ..... 6 units twice a day Aspirin Adult Low Dose 81 Mg Oral Tablet Delayed Release (Aspirin) ..... One tab by mouth daily [facility] Cardiology:s/p ablat ion. cont corlanor H er updated medication list for this problem includes: Aspirin Adult Low Dose 81 Mg Oral Tablet Delayed Release (Aspirin) ..... One tab by mouth daily [facility] Cardiology:Will have pt follow up with GI specialist [facility] Cardiology:appears c ompensated. Will check pBNP H er updated medication list for this problem includes: Entresto 24-26 Mg Oral Tablet (Sacubitril-valsartan) ..... Twice a day Aspirin Adult Low Dose 81 Mg Oral Tablet Delayed Release (Aspirin) ..... One tab by mouth daily [facility] Cardiology:ICD in pl [place]. EF of 35% per last echo H er updated medication list for this problem includes: Entresto 24-26 Mg Oral Tablet (Sacubitril-valsartan) ..... Twice a day Aspirin Adult Low Dose 81 Mg Oral Tablet Delayed Release (Aspirin) ..... One tab by mouth daily [facility] Electrophysiology Ho spital Follow up : E F 35% by echo 07/2017. s /p ICD. Her updated medication list for this problem includes: Entresto 24-26 Mg Oral Tablet (Sacubitril-valsartan) ..... Twice a day Aspirin Adult Low Dose 81 Mg Oral Tablet Delayed Release (Aspirin) ..... One tab by mouth daily Leighton Reza MD Electrophysiology Ho spital Follow up : E F 35% by echo 07/2017. s /p ICD. Her updated medication list for this problem includes: Entresto 24-26 Mg Oral Tablet (Sacubitril-valsartan) ..... Twice a day Aspirin Adult Low Dose 81 Mg Oral Tablet Delayed Release (Aspirin) ..... One tab by mouth daily Leighton Reza MD Electrophysiology Ho spital Follow up : N ormal function. Leighton Reza MD Electrophysiology Ho spital Follow up : H as 23 % of PVCs that cause severe palpitations. s /p EPS on 06/30/18. No inducible SVT or VT. Her updated medication list for this problem includes: Aspirin Adult Low Dose 81 Mg Oral Tablet Delayed Release (Aspirin) ..... One tab by mouth daily Leighton Reza MD Electrophysiology Follow up Raheem Reza MD Electrophysiology Fo llow up : H er updated medication list for this problem includes: Entresto 24-26 Mg Oral Tablet (Sacubitril-valsartan) ..... Twice a day Aspirin Adult Low Dose 81 Mg Oral Tablet Delayed Release (Aspirin) ..... One tab by mouth daily Leighton Reza MD Electrophysiology Fo llow up :start ABLATION w/ Anesthesia (*) at [facility] with CARTO and anesthesia O rders: E KG (CPT-85707) 9 9215 HIGH Complex (CPT-31821) A BLATION w/ Anesthesia (*) at [facility] with CARTO and anesthesia Her updated medication list for this problem includes: Aspirin Adult Low Dose 81 Mg Oral Tablet Delayed Release (Aspirin) ..... One tab by mouth daily & #13;Orders: E KG (CPT-53293) 9 9215 HIGH Complex (CPT-16229) A BLATION w/ Anesthesia (*) C T Cardiac with contrast (Pre-Ablation) (CPT-01763) Leighton Reza MD Electrophysiology Fo llow up : H er updated medication list for this problem includes: Entresto 24-26 Mg Oral Tablet (Sacubitril-valsartan) ..... Twice a day Aspirin Adult Low Dose 81 Mg Oral Tablet Delayed Release (Aspirin) ..... One tab by mouth daily Leighton Reza MD Electrophysiology Fo llow up :start ABLATION w/ Anesthesia (*) at [facility] with CARTO and anesthesia O rders: E KG (CPT-30014) 9 9215 HIGH Complex (CPT-92088) A BLATION w/ Anesthesia (*) at [facility] with CARTO and anesthesia Her updated medication list for this problem includes: Aspirin Adult Low Dose 81 Mg Oral Tablet Delayed Release (Aspirin) ..... One tab by mouth daily Leighton Reza MD Cardiology Silvio Schulte MD Cardiology: 3 5 Silvio Schulte MD Cardiology Silvio Schulte MD Cardiology Silvio Schulte MD Cardiology: h as had hodan acevedo, number ok now, up to date on colaon Silvio Schulte MD Cardiology:196 Silvio Schulte MD Cardiology:22% Silvio Schulte MD Cardiology: s et 50 does not pace Silvio Schulte MD Cardiology: H er updated medication list for this problem includes: Synthroid 25 Mcg Oral Tablet (Levothyroxine sodium) ..... One tab. daily Labs Reviewed: T SH: 0.988 ??IU/ML (09/29/2016) Total T4: 9.5 (02/12/2018) H gBA1c: 6.1 (02/12/2018) C hol: 132 (02/12/2018) HDL: 64 (02/12/2018) Silvio Schulte MD Cardiology: H er updated medication list for this problem includes: Crestor 5 Mg Oral Tablet (Rosuvastatin calcium) ..... One tab. daily C HOL: 132 (02/12/2018) HDL: 64 (02/12/2018) CHOL (goal): 200 (06/08/2013) LDL (goal): 100 (06/08/2013) HDL (goal): 40 (06/08/2013) TG (goal): 150 (06/08/2013) Silvio Schulte MD Cardiology: 6 .1 Her updated medication list for this problem includes: Basaglar Kwikpen 100 Unit/ml Subcutaneous Solution Pen-injector (Insulin glargine) ..... Inject 15 units once daily at night Entresto 24-26 Mg Oral Tablet (Sacubitril-valsartan) ..... Twice a day Metformin Hcl 1000 Mg Oral Tablet (Metformin hcl) ..... Twice daily Januvia 100 Mg Oral Tablet (Sitagliptin phosphate) ..... Daily Novolog Flexpen 100 Unit/ml Soln (Insulin aspart) ..... Twice daily Aspirin Adult Low Dose 81 Mg Oral Tablet Delayed Release (Aspirin) ..... One tab by mouth daily Silvio Schulte MD Cardiology Silvio Schulte MD Cardiology: s et 50 does not pace Silvio Schulte MD Cardiology:will rian Shahid MD Cardiology: H er updated medication list for this problem includes: Crestor 5 Mg Oral Tablet (Rosuvastatin calcium) ..... One tab. daily C HOL: 132.0 (04/03/2016) HDL: 59.0 (04/03/2016) T.0 (04/03/2016) C HOL (goal): 200 (06/08/2013) LDL (goal): 100 (06/08/2013) HDL (goal): 40 (06/08/2013) TG (goal): 150 (06/08/2013) Silvio Schulte MD Cardiology: H er updated medication list for this problem includes: Synthroid 25 Mcg Oral Tablet (Levothyroxine sodium) ..... One tab. daily Labs Reviewed: T SH: 0.988 ??IU/ML (09/29/2016) Total T4: 6.9 ??G/DL (09/29/2016) H gBA1c: 6.1 (08/01/2016) C hol: 132.0 (04/03/2016) HDL: 59.0 (04/03/2016) T.0 (04/03/2016) Silvio Schulte MD Cardiology Silvio Schulte MD Cardiology: p ro normal now Silvio Schulte MD Cardiology: h as had mult infusin, number ok now, up to date on colaon Silvio Schulte MD Cardiology: b 12 okd on rx, rpr neg Silvio Schulte MD Cardiology: T he patient is between 55-77 years old and has smoked at least 30 pack years. The patient is either a current smoker or has quit within the past 15 years. T he patient is recommended to have low dose CT scan for lung cancer screening. Has been counseled regarding the importance of tobacco cessation and abstinence. Shared decision making during this office visit included discussion of the benefits and harms of screening, possible future recommendations of follow-up diagnostic testing, and total amount of radiation exposure. The patient was recommended to have annual low dose CT scan for lung cancer screening and is willing to undergo diagnosis and treatment. Silvio Schutle MD Cardiology: f uy ct neg Silvio Schulte MD Cardiology: 3 5 Silvio Schulte MD Cardiology Silvio Schulte MD Cardiology Silvio Schulte MD chart and [employer] revies:fuy ct neg Silvio Schulte MD chart and [employer] revies:35 Christiano vey Eris COLBERT chart and [employer] revies:set 50 does not pace Silvio Schulte MD Cardiology:folate o,k, b12 high on rx Silvio Schulte MD Cardiology Silvio Schulte MD Cardiology: h as had mult infusin, number ok now, up to date on colaon Silvio Schulte MD Cardiology:foalate ok now Silvio Schulte MD Cardiology:b12 okd on rx, rpr ne g Silvio Schulte MD Cardiology Silvio Schulte MD Cardiology:The patie nt is between 55-77 years old and has smoked at least 30 pack years. The patient is either a current smoker or has quit within the past 15 years. T he patient is recommended to have low dose CT scan for lung cancer screening. Has been counseled regarding the importance of tobacco cessation and abstinence. Shared decision making during this office visit included discussion of the benefits and harms of screening, possible future recommendations of follow-up diagnostic testing, and total amount of radiation exposure. The patient was recommended to have annual low dose CT scan for lung cancer screening and is willing to undergo diagnosis and treatment. Silvio Schulte MD Cardiology: L abs Reviewed: T SH: 0.988 ??IU/ML (09/29/2016) Total T4: 6.9 ??G/DL (09/29/2016) H gBA1c: 6.1 (08/01/2016) C hol: 132.0 (04/03/2016) HDL: 59.0 (04/03/2016) T.0 (04/03/2016) Silvio Schulte MD Cardiology: 1 . Mild plaque with less than 50% stenosis of the internal carotid arteries bilaterally. Silvio Schulte MD Cardiology: p ro normal now Silvio Schulte MD Cardiology: 3 5 Silvio Schulte MD Cardiology: R TRICIA KATI s et at 49 Silvio Schulte MD Cardiology:better without lasx H mina Schulte MD Cardiology:has had jairo webber MD Cardiology Silvio Schulte MD Cardiology:pro normal now Silvio Schulte MD Cardiology:6.1 Silvio Schulte MD Cardiology Hospital Follow up :s top laix Silvio Schulte MD Cardiology Hospital Follow up Carmelo Schulte MD Cardiology Hospital Follow up : n umber normal post iron infusion Silvio Schulte MD Cardiology Hospital Follow up :3 5 Silvio Schulte MD Cardiology Hospital Follow up Carmelo Schulte MD Cardiology Hospital Follow up : L abs Reviewed: T SH: 0.097 ??IU/ML (04/03/2016) Total T4: 9.7 ??G/DL (04/03/2016) H gBA1c: 6.5 (10/05/2015) C hol: 132.0 (04/03/2016) HDL: 59.0 (04/03/2016) T.0 (04/03/2016) Her updated medication list for this problem includes: Synthroid 25 Mcg Tabs (Levothyroxine sodium) ..... One tab. daily Silvio Schulte MD [facility] Follow up :CHOL: 132.0 (04/03/2016) HDL: 59.0 (04/03/2016) T.0 (04/03/2016) C HOL (goal): 200 (06/08/2013) LDL (goal): 100 (06/08/2013) HDL (goal): 40 (06/08/2013) TG (goal): 150 (06/08/2013) Silvio Schulte MD [facility] Follow up :519, will stop lasix due to lwo bp at home, will try corloaonre Silvio Schulte MD [facility] Follow up Rhodes ron Schulte MD [facility] Follow up : R TRICIA PARIKH s et at 49 Silvio Schulte MD Hem/Onc Follow up :T he patient had a repeat CT chest performed in April 2016 rather than June 2016. Nevertheless, this CT scan did reveal resolving RLL PNA. This is likely not malignancy related. At this time, I recommend the patient to obtain a low dose CT chest in April 2017. Patient will be scheduled closer to this date. O rders: 9 9213 LTD. Complex (CPT-94733) Farhad Ewing MD Hem/Onc:Patient stat es that she has quit smoking as of her last hospitialization. She was congratulated her smoking cessation and encouraged to adhere to this. O rders: 9 9244 MOD C omplex (CPT-64797) Farhad Ewing MD Hem/Onc:The patient RLL infiltrate is likely residual pneumonia which is slowly resolving. She has no concerning symptoms of malignancy. I will repeat a CT chest in three months to document clearance of the residual RLL PNA. If persistent, she will need referral to pulmonary for further evaluation. She was agreeable to this plan. Orders: S NOMED-CT: [id number] Current Medications Documented (SCT-[id number]) C T, Chest (CPT-23855) 9 9244 MOD C omplex (CPT-91216) Farhad Ewing MD Cardiology:many sx will charles Tay Schulte MD Cardiology:had pna f or fu ct to be sure no tumro, had pos blood cultre, will see tabatha Schulte MD Cardiology:normalzed by echo 16 due to entresto Silvio Schulte MD Cardiology:pro mildl ey elevated, got iron, ef normalized Silvio Schulte MD Cardiology: L abs Reviewed: T SH: 0.870 ??IU/ML (10/05/2015) Total T4: 9.3 ??G/DL (10/05/2015) H gBA1c: 6.5 (10/05/2015) C hol: 117 (06/08/2013) HDL: 63 (06/08/2013) LDL: 38 (06/08/2013) T (06/08/2013) Silvio Schulte MD Cardiology: L abs Reviewed: H gBA1c: 6.5 (10/05/2015) Creat: 0.8 (10/05/2015) Silvio Schulte MD Cardiology:number normal post ir on infusion Silvio Schulte MD Cardiology:normal ir on stores after infusion, b12 greaat, fo;late normla Silvio Schulte MD Cardiology Silvio Schulte MD Cardiology:did not like toprol b ack on coreg Silvio Scuhlte MD Cardiology: R TRICIA PARIKH s et at 49 Silvio Schulte MD Cardiology:Today Ms. Lubin and I discussed in depth the pathophysiology and treatment of PVC's. Today I will discontinue the carvedilol and start Toprol 50 mg qam. She will return to clinic in five months and, at that time, I will increase the dose of her Toprol if her blood pressure tolerates it. Parth Olivera MD Cardiology: H er updated medication list for this problem includes: Furosemide Tabs (Furosemide tabs) ..... One a day Entresto 24-26 Mg Oral Tabs (Sacubitril-valsartan) ..... Twice a day Coreg 6.25 Mg Oral Tabs (Carvedilol) ..... 1/2 twice a day Spironolactone-hctz 25-25 Mg Tabs (Spironolactone-hctz) ..... One tab by mouth daily Aspirin 81 Mg Ec Tab (Aspirin) ..... Take one (1) tablet by mouth daily Silvio Schulte MD Cardiology Silvio Schulte MD Cardiology:Pulmonary Function Diagnosis: M inimal Obstructive Airways Disease N o significant restriction M oderate Diffusion Defect when corrected for alveolar volume T he following medications were removed from the medication list: Theochron 300 Mg Oral [id number] (Theophylline) ..... 1 twice daily Her updated medication list for this problem includes: Proair Hfa 108 (90 Base) Mcg/act Inh Aers (Albuterol sulfate) Advair Diskus 500-50 Mcg/dose Aepb (Fluticasone-salmeterol) ..... 1 puff twice daily Spiriva Handihaler 18 Mcg Caps (Tiotropium bromide monohydrate) ..... 2 times daily Pulmonary Functions Reviewed: O 2 sat: 95 (10/04/2015) Silvio Schulte MD Cardiology:EF 45% TH IS IMPROVED BY ENTRESTO, NO CAD BY CATH, WILL CHECK LYTES Silvio Schulte MD Cardiology:WILL SEE EPS, 40915 P ER DAY Silvio Schulte MD Cardiology:RARELY PACES Silvio virk MD Cardiology:class 3, has had issu es with more meds Silvio Schulte MD Cardiology:6.9 2013 Silvio ross MD Cardiology:1. Mild p laque with less than 50% stenosis of the internal carotid arteries bilaterally. Silvio Schulte MD Cardiology:doing weill on cresto r Silvio Schulte MD Cardiology:Conclusio ns 1 . Normal left ventricular size. Left ventricular ejection fraction is estimated at 40 %. 2 . Normal left ventricular wall thickness. There is E to A wave reversal consistent w ith impaired LV relaxation. 3 . Normal right ventricular size. Normal right ventricular systolic function. Linear a rtifact seen in the right ventricle is suggestive of a catheter, pacer lead, or ICD lead. 4 . The left atrium is normal in size. 5 . The right atrium is normal in size. Linear artifact in right atrium suggestive of c atheter, pacer lead, or ICD lead. 6 . No mitral valve regurgitation is seen. 7 . Mildly thickened aortic valve leaflets. Velocities, as well as gradients across the a ortic valve are normal. No evidence of aortic insufficiency. 8 . There is trace physiologic tricuspid valve regurgitation. IVC is normal in size with n ormal respiratory response. E lectronically Signed By: Bull Alvarez MD., [facility] [place], [facility] _ 2 27-Jul-2014 14:57:11 -0500 P atient Name: JULIETTE LUBIN RN: [id number] Krysta jaimes Date: Silvio Schulte MD f/u: O rders: C omplete Echo (CPT-88048) Silvio Schulte MD f/u: O rders: C omplete Echo (CPT-46911) Silvio Schulte MD HFU,DEVICE CHECK: H er updated medication list for this problem includes: Spironolactone-hctz 25-25 Mg Tabs (Spironolactone-hctz) ..... One tab by mouth daily Aspirin 81 Mg Ec Tab (Aspirin) ..... Take one (1) tablet by mouth daily Coreg 6.25 Mg Tabs (Carvedilol) ..... One tab. twice daily Losartan Potassium 25 Mg Tabs (Losartan potassium) ..... One tab by mouth daily Lenny Razo MD HFU,DEVICE CHECK: T he following medications were removed from the medication list: Valium 5 Mg Tabs (Diazepam) ..... Daily Diazepam 5 Mg Tabs (Diazepam) ..... 1 tab twice daily Valium 5 Mg Tabs (Diazepam) ..... 1 tab twice daily Her updated medication list for this problem includes: Diazepam 5 Mg Tabs (Diazepam) ..... Three times daily Aspirin 81 Mg Ec Tab (Aspirin) ..... Take one (1) tablet by mouth daily Coreg 6.25 Mg Tabs (Carvedilol) ..... One tab. twice daily Lenny Razo MD HFU,DEVICE CHECK: H er updated medication list for this problem includes: Spironolactone-hctz 25-25 Mg Tabs (Spironolactone-hctz) ..... One tab by mouth daily Aspirin 81 Mg Ec Tab (Aspirin) ..... Take one (1) tablet by mouth daily Coreg 6.25 Mg Tabs (Carvedilol) ..... One tab. twice daily Losartan Potassium 25 Mg Tabs (Losartan potassium) ..... One tab by mouth daily Lenny Razo MD echo pdingin: O rders: B ASIC METABOLIC PANEL W/EGFR (63510) Silvio Schulte MD echo pdingin: O rders: B ASIC METABOLIC PANEL W/EGFR (44215) Silvio Schulte MD echo pdingin: H er updated medication list for this problem includes: Spironolactone-hctz 25-25 Mg Tabs (Spironolactone-hctz) ..... One tab by mouth daily Aspirin 81 Mg Ec Tab (Aspirin) ..... Take one (1) tablet by mouth daily Coreg 6.25 Mg Tabs (Carvedilol) ..... One tab. twice daily Losartan Potassium 25 Mg Tabs (Losartan potassium) ..... One tab by mouth daily Orders: B ASIC METABOLIC PANEL W/EGFR (74426) Silvio Schulte MD echo pdingin: H er updated medication list for this problem includes: Spironolactone-hctz 25-25 Mg Tabs (Spironolactone-hctz) ..... One tab by mouth daily Aspirin 81 Mg Ec Tab (Aspirin) ..... Take one (1) tablet by mouth daily Coreg 6.25 Mg Tabs (Carvedilol) ..... One tab. twice daily Losartan Potassium 25 Mg Tabs (Losartan potassium) ..... One tab by mouth daily Orders: B ASIC METABOLIC PANEL W/EGFR (38098) Silvio Schulte MD echo pdingin: H er updated medication list for this problem includes: Crestor 20 Mg Tabs (Rosuvastatin calcium) ..... One tab. daily Silvio Schulte MD echo pdingin: H er updated medication list for this problem includes: Synthroid 50 Mcg Tabs (Levothyroxine sodium) ..... 1 tab daily Silvio Schulte MD echo pdingin Silvio Schutle MD echo pdingin: O rders: B ASIC METABOLIC PANEL W/EGFR (99366) T HYROID PANEL WITH TSH, 3RD GENERATION (7444) Silvio Schulte MD echo pdingin: O rders: B ASIC METABOLIC PANEL W/EGFR (74358) Silvio Schulte MD echo pdingin: H er updated medication list for this problem includes: Diazepam 5 Mg Tabs (Diazepam) ..... Three times daily Aspirin 81 Mg Ec Tab (Aspirin) ..... Take one (1) tablet by mouth daily Coreg 6.25 Mg Tabs (Carvedilol) ..... One tab. twice daily Valium 5 Mg Tabs (Diazepam) ..... Daily Diazepam 5 Mg Tabs (Diazepam) ..... 1 tab twice daily Valium 5 Mg Tabs (Diazepam) ..... 1 tab twice daily Orders: E KG (CPT-25726) B ASIC METABOLIC PANEL W/EGFR (12670) T HYROID PANEL WITH TSH, 3RD GENERATION (7444) Silvio Schulte MD echo pdingin Silvio Schulte MD cath f/u : H er updated medication list for this problem includes: Metformin Hcl 1000 Mg Tabs (Metformin hcl) ..... Twice daily Januvia 100 Mg Tabs (Sitagliptin phosphate) ..... Daily Lantus Solostar 100 Unit/ml Soln (Insulin glargine) ..... 14 u at bedtie Novolog Flexpen 100 Unit/ml Soln (Insulin aspart) ..... 4 u twice daily Lantus 100 Unit/ml Soln (Insulin glargine) ..... 10 to 50 units four times daily Aspirin 81 Mg Ec Tab (Aspirin) ..... Take one (1) tablet by mouth daily Losartan Potassium 25 Mg Tabs (Losartan potassium) ..... One tab by mouth daily B P today: 121/54 Prior BP: 104/64 (05/11/2013) Labs Reviewed: C reat: 0.88 (06/11/2013) Silvio Schulte MD cath f/u : H er updated medication list for this problem includes: Advair Diskus 500-50 Mcg/dose Aepb (Fluticasone-salmeterol) ..... 1 puff twice daily Spiriva Handihaler 18 Mcg Caps (Tiotropium bromide monohydrate) ..... 2 times daily Theochron 200 Mg [id number] (Theophylline) ..... Twice daily BP today: 121/54 Prior BP: 104/64 (05/11/2013) Pulmonary Functions Reviewed: O 2 sat: 95 (06/25/2013) Silvio Schulte MD cath f/u : H er updated medication list for this problem includes: Crestor 20 Mg Tabs (Rosuvastatin calcium) ..... One tab. daily BP today: 121/54 Prior BP: 104/64 (05/11/2013) C HOL: 117 (06/08/2013) LDL: 38 (06/08/2013) HDL: 63 (06/08/2013) T (06/08/2013) C HOL (goal): 200 (06/08/2013) LDL (goal): 100 (06/08/2013) HDL (goal): 40 (06/08/2013) TG (goal): 150 (06/08/2013) Silvio Schulte MD cath f/u : O rders: C omplete Echo (CPT-10207) M UGA (LVEF) (CPT-26663) Silvio Schulte MD cath f/u Silvio Schulte MD cath f/u : O rders: C omplete Echo (CPT-56252) M UGA (LVEF) (CPT-49680) M obile Cardiac Tele (CPT-24232) Silvio Schulte MD cath f/u : H er updated medication list for this problem includes: Spironolactone-hctz 25-25 Mg Tabs (Spironolactone-hctz) ..... One tab by mouth daily Aspirin 81 Mg Ec Tab (Aspirin) ..... Take one (1) tablet by mouth daily Coreg 6.25 Mg Tabs (Carvedilol) ..... One tab. twice daily Losartan Potassium 25 Mg Tabs (Losartan potassium) ..... One tab by mouth daily BP today: 121/54 Prior BP: 104/64 (05/11/2013) C ardiac Cath: Normal coronary artery. Absence of aortic and mitral regurgitation. S evere LV dysfunction with an ejection fraction of 15%. Mild pulmonary hypertension. Mild elevation of left and right heart filling pressures. - [facility] (06/12/2013) C HOL: 117 (06/08/2013) LDL: 38 (06/08/2013) HDL: 63 (06/08/2013) T (06/08/2013) H CT: 40.8 (06/11/2013) Platelets: 245 THOUSAND/UL (06/11/2013) R BC: 3.95 MILLION/UL (06/11/2013) BUN: 13 (06/11/2013) Creat: 0.88 (06/11/2013) Glucose: 133 (06/11/2013) N a+: 140 (06/11/2013) K+: 4.1 (06/11/2013) Cl: 105 (06/11/2013) PT: 10.4 (06/11/2013) INR: 1.0 (06/11/2013) Orders: C omplete Echo (CPT-22447) M UGA (LVEF) (CPT-26677) M obile Cardiac Tele (CPT-97556) Silvio Schulte MD cath f/u : O rders: C omplete Echo (CPT-04745) M UGA (LVEF) (CPT-55511) M obile Cardiac Tele (CPT-12525) Silvio Schulte MD cath f/u : O rders: C omplete Echo (CPT-25083) M UGA (LVEF) (CPT-58265) M obile Cardiac Tele (CPT-15938) Silvio Schulte MD cath f/u : O rders: C omplete Echo (CPT-43468) M UGA (LVEF) (CPT-44123) M obile Cardiac Tele (CPT-19922) Silvio Schulte MD cath f/u : H er updated medication list for this problem includes: Spironolactone-hctz 25-25 Mg Tabs (Spironolactone-hctz) ..... One tab by mouth daily Aspirin 81 Mg Ec Tab (Aspirin) ..... Take one (1) tablet by mouth daily Coreg 6.25 Mg Tabs (Carvedilol) ..... One tab. twice daily Losartan Potassium 25 Mg Tabs (Losartan potassium) ..... One tab by mouth daily BP today: 121/54 Prior BP: 104/64 (05/11/2013) C ardiac Cath: Normal coronary artery. Absence of aortic and mitral regurgitation. S evere LV dysfunction with an ejection fraction of 15%. Mild pulmonary hypertension. Mild elevation of left and right heart filling pressures. - [facility] (06/12/2013) C HOL: 117 (06/08/2013) LDL: 38 (06/08/2013) HDL: 63 (06/08/2013) T (06/08/2013) H CT: 40.8 (06/11/2013) Platelets: 245 THOUSAND/UL (06/11/2013) R BC: 3.95 MILLION/UL (06/11/2013) BUN: 13 (06/11/2013) Creat: 0.88 (06/11/2013) Glucose: 133 (06/11/2013) N a+: 140 (06/11/2013) K+: 4.1 (06/11/2013) Cl: 105 (06/11/2013) PT: 10.4 (06/11/2013) INR: 1.0 (06/11/2013) Orders: E KG (CPT-63787) C omplete Echo (CPT-77248) M UGA (LVEF) (CPT-67510) M obile Cardiac Tele (CPT-77324) Silvio Schulte MD cath f/u iSlvio Schulte MD new pt Silvio Schulte MD new pt Silvio Schulte MD new pt Silvio Schulte MD new pt : O rders: L ipid Strip (CPT-58549) C omplete Echo (CPT-30085) V enous Doppler Bilateral LE - Standing (CPT-82217) B TYPE NATRIURETIC PEPTIDE (BNP) (53084) U RINALYSIS, COMPLETE W/REFLEX TO CULTURE (3020) Silvio Schulte MD new pt : O rders: L ipid Strip (CPT-80936) C omplete Echo (CPT-48265) V enous Doppler Bilateral LE - Standing (CPT-88998) B TYPE NATRIURETIC PEPTIDE (BNP) (29139) U RINALYSIS, COMPLETE W/REFLEX TO CULTURE (3020) Silvio Schulte MD new pt : H er updated medication list for this problem includes: Crestor 20 Mg Tabs (Rosuvastatin calcium) ..... One tab. daily Orders: F ull PFT (*) L ipid Strip (CPT-95285) Complete Echo (CPT-44714) V enous Doppler Bilateral LE - Standing (CPT-99525) B TYPE NATRIURETIC PEPTIDE (BNP) (91999) U RINALYSIS, COMPLETE W/REFLEX TO CULTURE (3020) Silvio Schulte MD new pt : H er updated medication list for this problem includes: Metformin Hcl 1000 Mg Tabs (Metformin hcl) ..... Twice daily Januvia 100 Mg Tabs (Sitagliptin phosphate) ..... Daily Lantus Solostar 100 Unit/ml Soln (Insulin glargine) ..... 14 u at bedtie Novolog Flexpen 100 Unit/ml Soln (Insulin aspart) ..... 4 u twice daily Lantus 100 Unit/ml Soln (Insulin glargine) ..... 10 to 50 units four times daily Aspirin 81 Mg Ec Tab (Aspirin) ..... Take one (1) tablet by mouth daily Orders: F ull PFT (*) L ipid Strip (CPT-97906) B TYPE NATRIURETIC PEPTIDE (BNP) (38723) U RINALYSIS, COMPLETE W/REFLEX TO CULTURE (7340) Silvio Schulte MD new pt : H er updated medication list for this problem includes: Synthroid 88 Mcg Tabs (Levothyroxine sodium) ..... 1 daily Orders: F ull PFT (*) L ipid Strip (CPT-98254) Silvio Schulte MD Date Name PARTIAL THROMBOPLAST IN TIME, ACTIVATED URINALYSIS, COMPLETE W/REFLEX TO CULTURE COMPREHENSIVE METABO LIC PANEL W/EGFR PROTHROMBIN TIME WIT H INR CBC (INCLUDES DIFF/P LT) Complete Echo Low Dose Lung CT Complete Echo TSH, free T4, total T3 Microalb/Creatinine Urine, Random HEMOGLOBIN A1c LIPID PANEL Lipoprotein (a) PROBNP, N TERMINAL COMPREHENSIVE METABO LIC PANEL, W/EGFR IRON AND TOTAL IRON BINDING CAPACITY FERRITIN CBC (INCLUDES DIFF/P LT) Complete Echo Complete Echo BASIC METABOLIC PANE L W/EGFR Low Dose Lung CT TSH, free T4, total T3 BASIC METABOLIC PANE L W/EGFR LIPID PANEL Microalb/Creatinine Urine, Random Low Dose Lung CT PROBNP, N TERMINAL Venous Doppler Bilat eral LE - Reflux PROTHROMBIN TIME WIT H INR LIPID PANEL CBC (INCLUDES DIFF/P LT) BASIC METABOLIC PANE L W/EGFR LIPID PANEL Venogram w/ IVUS - C NE PROTHROMBIN TIME WIT H INR CBC (INCLUDES DIFF/P LT) BASIC METABOLIC PANE L W/EGFR Arterial Duplex Bi-L ower EX DLCO - 87881 FRC - 33879 FVC - [address] Complete Echo HEMOGLOBIN A1c PROTHROMBIN TIME WIT H INR LIPID PANEL CBC (INCLUDES DIFF/P LT) BASIC METABOLIC PANE L W/EGFR Venogram w/ IVUS - G C C-REACTIVE PROTEIN CXR- PA/Lat TSH, free T4, total T3 Complete Echo Microalb/Creatinine Urine, Random PROBNP, N TERMINAL COMPREHENSIVE METABO LIC PANEL, W/EGFR IRON AND TOTAL IRON BINDING CAPACITY FERRITIN CBC (INCLUDES DIFF/P LT) Low Dose Lung CT Complete Echo Low Dose Lung CT Complete Echo Holter Monitor 24 Hr DLCO - 13446 FRC - 47495 FVC - 46616 BASIC METABOLIC PANE L W/EGFR Low Dose Lung CT Holter Monitor 24 Hr DLCO - 39011 FRC - 66316 FVC - 64924 Renal Artery Duplex Holter Monitor [address] Dose [address] CT LIPID PANEL Complete Echo TSH, free T4, total T3 BASIC METABOLIC PANE L W/EGFR Covid Antibody Igg PROBNP, N TERMINAL IRON AND TOTAL IRON BINDING CAPACITY FERRITIN CBC (INCLUDES DIFF/P LT) DLCO - 22742 FRC - 02638 FVC - 72229 COMPREHENSIVE METABO LIC PANEL, W/EGFR IRON AND TOTAL IRON BINDING CAPACITY FERRITIN CBC (INCLUDES DIFF/P LT) Vitamin D, 25-Hydrox y DLCO - 43890 FRC - 89303 FVC - 70763 PROBNP, N TERMINAL HEMOGLOBIN A1c LIPID PANEL Partial Thromboplast in Time, Activated PROTHROMBIN TIME WIT H INR CBC (INCLUDES DIFF/P LT) BASIC METABOLIC PANE L W/EGFR Creatinine, Serum CT Cardiac with cont rast (Pre-Ablation) ABLATION w/ Anesthes ia Kidney Ultrasound Aorta Duplex Ultraso und (AAA) IRON AND TOTAL IRON BINDING CAPACITY FERRITIN Holter Monitor 24 Hr Complete Echo Low Dose Lung CT DLCO - 47471 FRC - 41878 FVC - 84326 VITAMIN B12 THYROID PANEL WITH T SH, 3RD GENERATION PROBNP, N TERMINAL HEMOGLOBIN A1c Holter Monitor [address] Dose [address] Complete Echo DLCO - 45890 FRC - 83073 FVC - 97385 Vitamin D, 25-Hydrox y LIPID PANEL IRON AND TOTAL IRON BINDING CAPACITY BASIC METABOLIC PANE L W/EGFR CT, Coronary Calcium Score PROBNP, N TERMINAL CT, Coronary Calcium Score BASIC METABOLIC PANE L W/EGFR URINALYSIS, RANDOM, MICROALB/CREATININE DLCO - 28168 FRC - 77790 FVC - 25970 Complete Echo Low Dose Lung CT PROBNP, N TERMINAL COMPREHENSIVE METABO LIC PANEL W/EGFR DLCO - 71560 FRC - 99486 FVC - 67747 RPR (MONITOR) W/REFL TITER Complete Echo THYROID PANEL WITH T SH, 3RD GENERATION IRON AND TOTAL IRON BINDING CAPACITY FERRITIN COMPREHENSIVE METABO LIC PANEL W/EGFR VITAMIN D, 25-HYDROX Y, LC/MS/MS COMPREHENSIVE METABO LIC PANEL W/EGFR IRON AND TOTAL IRON BINDING CAPACITY CBC (INCLUDES DIFF/P LT) FERRITIN HEMOGLOBIN A1c PROBNP, N TERMINAL Complete Echo DLCO - 87841 FRC - 80396 FVC - 12311 CT Chest - low dose for lung cancer screening CT, Chest Sleep Study Home LIPID PANEL VITAMIN D, 25-HYDROX Y, LC/MS/MS THYROID PANEL WITH T SH, 3RD GENERATION DLCO - 06557 FRC - 39957 FVC - 15948 Complete Echo COMPREHENSIVE METABO LIC PANEL W/EGFR PROBNP, N TERMINAL IRON AND TOTAL IRON BINDING CAPACITY FERRITIN CBC (INCLUDES DIFF/P LT) THYROID PANEL WITH T SH, 3RD GENERATION PROBNP, N TERMINAL COMPREHENSIVE METABO LIC PANEL W/EGFR HEMOGLOBIN A1c VITAMIN B12 RETICULOCYTE COUNT IRON AND TOTAL IRON BINDING CAPACITY FOLATE, SERUM FERRITIN CBC (INCLUDES DIFF/P LT) DLCO - 43394 FRC - 84385 FVC - 05180 Complete Echo Carotid Duplex Bilat eral Complete Echo BASIC METABOLIC PANE L W/EGFR Mobile Cardiac Tele MUGA (LVEF) Complete Echo PROTHROMBIN TIME WIT H INR CBC (INCLUDES DIFF/P LT) BASIC METABOLIC PANE L W/EGFR Sleep Study URINALYSIS, COMPLETE W/REFLEX TO CULTURE B TYPE NATRIURETIC P EPTIDE (BNP) Venous Doppler Bilat eral LE - Standing Full PFT HISTORY OF PROCEDURES Procedure Date Procedure Name Provider Procedure Notes S tatus Complex e/m visit ad d on Silvio Schulte MD completed Counseling LDCT Silvio Schulte MD com pleted EKG Silvio Schulte MD complete d Counseling LDCT Silvio Schulte MD jan com pleted Counseling LDCT Silvio Schulte MD jan com pleted EKG Silvio Schulte MD complete d EKG Luis F Frausto MD complete d Counseling LDCT Silvio Schulte MD [email or web address] com pleted Counseling LDCT Silvio Schulte MD november com pleted Feraheme 510mg Silvio Schulte MD comp leted Therapeutic IV Infusion up to 1 hour Silvio Schulte MD completed Counseling LDCT Silvio Schulte MD one tyear com pleted Counseling LDCT Silvio Schulte MD com pleted EKG Silvio Schulte MD complete d FVC / MVV with bronchodilator - 96923 Silvio Schulte MD completed BLOOD COUNT HEMOGLOBIN Silvio Schulte MD completed FRC - 85064 Silvio Schulte MD complet ed SpO2 w/o 6min walk/titration Silvio Schulte MD completed DLCO - 93279 Silvio Schulte MD comple akhil ICM Interrogation, Remote (Prof) Silvio Schulte MD INTERROGATION EVAL REMOTE </30 D CV MNTR SYS completed AICD Interrogation, Remote (Tech) Silvio Schulte MD INTERROGATION REMOTE </90 D WAITER/WAITRESS INFORMAL REVIEW completed AICD Interrogation, Remote (Prof) Silvio Schulte MD INTERROGATION EVAL REMOTE </90 D 1/2/> LD CVDFB completed ICM Interrogation, Remote (Prof) Silvio Schulte MD INTERROGATION EVAL REMOTE </30 D CV MNTR SYS completed ICM Interrogation, Remote (Tech) iSlvio Schulte MD INTERROGATION EVAL REMOTE </30 D TECH REVIEW completed ICM Interrogation, Remote (Prof) Silvio Schulte MD INTERROGATION EVAL REMOTE </30 D CV MNTR SYS completed ICM Interrogation, Remote (Tech) Silvio Schulte MD INTERROGATION EVAL REMOTE </30 D TECH REVIEW completed ICM Interrogation, Remote (Prof) Silvio Schulte MD INTERROGATION EVAL REMOTE </30 D CV MNTR SYS completed AICD Interrogation, Remote (Tech) Silvio Schulte MD INTERROGATION REMOTE </90 D WAITER/WAITRESS INFORMAL REVIEW completed AICD Interrogation, Remote (Prof) Silvio Schulte MD INTERROGATION EVAL REMOTE </90 D 1/2/> LD CVDFB completed ICM Interrogation, Remote (Prof) Silvio Schulte MD INTERROGATION EVAL REMOTE </30 D CV MNTR SYS completed ICM Interrogation, Remote (Tech) Silvio Schulte MD INTERROGATION EVAL REMOTE </30 D TECH REVIEW completed ICM Interrogation, Remote (Prof) Silvio Schulte MD INTERROGATION EVAL REMOTE </30 D CV MNTR SYS completed ICM Interrogation, Remote (Tech) Silvio Schulte MD INTERROGATION EVAL REMOTE </30 D TECH REVIEW completed ICM Interrogation, Remote (Prof) Silvio Schulte MD INTERROGATION EVAL REMOTE </30 D CV MNTR SYS completed AICD Interrogation, Remote (Tech) Silvio Schulte MD INTERROGATION REMOTE </90 D WAITER/WAITRESS INFORMAL REVIEW completed AICD Interrogation, Remote (Prof) Silvio Schulte MD INTERROGATION EVAL REMOTE </90 D 1/2/> LD CVDFB completed Schedule Followup Leighton madrigal MD in [address] Schulte completed EKG Leighton chaparro MD completed Ultrasound, retroperitoneal, complete Silvio Schulte MD completed ICM Interrogation, Remote (Prof) Silvio Schulte MD INTERROGATION EVAL REMOTE </30 D CV MNTR SYS completed ICM Interrogation, Remote (Tech) Silvio Schulte MD INTERROGATION EVAL REMOTE </30 D TECH REVIEW completed EKG Leighton chaparro MD completed ICM Interrogation, Remote (Prof) Silvio Schulte MD INTERROGATION EVAL REMOTE </30 D CV MNTR SYS completed ICM Interrogation, Remote (Tech) Silvio Schulte MD INTERROGATION EVAL REMOTE </30 D TECH REVIEW completed ICM Interrogation, Remote (Prof) Silvio Schulte MD INTERROGATION EVAL REMOTE </30 D CV MNTR SYS completed AICD Interrogation, Remote (Tech) Silvio Schulte MD INTERROGATION REMOTE </90 D WAITER/WAITRESS INFORMAL REVIEW completed AICD Interrogation, Remote (Prof) Silvio Schulte MD INTERROGATION EVAL REMOTE </90 D 1/2/> LD CVDFB completed Counseling LDCT Silvio Schulte MD aprol com pleted ICM Interrogation, Remote (Prof) Silvio Schulte MD INTERROGATION EVAL REMOTE </30 D CV MNTR SYS completed ICM Interrogation, Remote (Tech) Silvio Schulte MD INTERROGATION EVAL REMOTE </30 D TECH REVIEW completed FVC / MVV with bronchodilator - 70990 Silvio Schulte MD completed BLOOD COUNT HEMOGLOBIN Silvio Schulte MD completed FRC - 47117 Silvio Schulte MD complet ed SpO2 w/o 6min walk/titration Silvio Schulte MD completed DLCO - 94649 Silvio Schulte MD comple akhil Protime Silvio Schulte MD complete d Counseling LDCT Silvio Schulte MD [email or web address] com pleted Pacemaker Interrogation, Remote (Tech) Silvio Schulte MD INTERROGATION REMOTE </90 D WAITER/WAITRESS INFORMAL REVIEW completed ICM Interrogation, Remote (Prof) Silvio Schulte MD INTERROGATION EVAL REMOTE </30 D CV MNTR SYS completed ICM Interrogation, Remote (Tech) Silvio Schulte MD INTERROGATION EVAL REMOTE </30 D TECH REVIEW completed ICM Interrogation, Remote (Prof) Silvio Schulte MD INTERROGATION EVAL REMOTE </30 D CV MNTR SYS completed AICD Interrogation, Remote (Tech) Silvio Schulte MD INTERROGATION REMOTE </90 D WAITER/WAITRESS INFORMAL REVIEW completed AICD Interrogation, Remote (Prof) Silvio Schulte MD INTERROGATION EVAL REMOTE </90 D 1/2/> LD CVDFB completed ICM Interrogation, Remote (Prof) Silvio Schulte MD INTERROGATION EVAL REMOTE </30 D CV MNTR SYS completed ICM Interrogation, Remote (Tech) Silvio Schulte MD INTERROGATION EVAL REMOTE </30 D TECH REVIEW completed ICM Interrogation, Remote (Prof) Silvio Schulte MD INTERROGATION EVAL REMOTE </30 D CV MNTR SYS completed ICM Interrogation, Remote (Tech) Silvio Serota INTERROGATION EVAL REMOTE </30 D TECH REVIEW completed ICM Interrogation, Remote (Prof) Silvio Serotvandana COLBERT INTERROGATION EVAL REMOTE </30 D CV MNTR SYS completed AICD Interrogation, Remote (Tech) Silvio Serota INTERROGATION REMOTE </90 D WAITER/WAITRESS INFORMAL REVIEW completed AICD Interrogation, Remote (Prof) Silvio Serotvandana COLBERT INTERROGATION EVAL REMOTE </90 D 1/2/> LD CVDFB completed Counseling LDCT Silvio Schulte MD com pleted EKG Silvio Serotvandana COLBERT complete d ICM Interrogation, Remote (Prof) Silvio Serotvandana COLBERT INTERROGATION EVAL REMOTE </30 D CV MNTR SYS completed ICM Interrogation, Remote (Tech) Silvio Serotvandana COLBERT INTERROGATION EVAL REMOTE </30 D TECH REVIEW completed ICM Interrogation, Remote (Prof) Silvio Serotvandana COLBERT INTERROGATION EVAL REMOTE </30 D CV MNTR SYS completed ICM Interrogation, Remote (Tech) Silvio Serota INTERROGATION EVAL REMOTE </30 D TECH REVIEW completed ICM Interrogation, Remote (Prof) Silvio Serota INTERROGATION EVAL REMOTE </30 D CV MNTR SYS completed AICD Interrogation, Remote (Tech) Silvio Serotvandana COLBRET INTERROGATION REMOTE </90 D WAITER/WAITRESS INFORMAL REVIEW completed AICD Interrogation, Remote (Prof) Silvio Serota INTERROGATION EVAL REMOTE </90 D 1/2/> LD CVDFB completed ICM Interrogation, Remote (Prof) Silvio Serota INTERROGATION EVAL REMOTE </30 D CV MNTR SYS completed ICM Interrogation, Remote (Tech) Silvio Serota INTERROGATION EVAL REMOTE </30 D TECH REVIEW completed ICM Interrogation, Remote (Prof) Silvio Serota INTERROGATION EVAL REMOTE </30 D CV MNTR SYS completed ICM Interrogation, Remote (Tech) Silvio Serota INTERROGATION EVAL REMOTE </30 D TECH REVIEW completed ICM Interrogation, Remote (Prof) Silvio Serotvandana COLBERT INTERROGATION EVAL REMOTE </30 D CV MNTR SYS completed AICD Interrogation, Remote (Tech) Silvio Serota INTERROGATION REMOTE </90 D WAITER/WAITRESS INFORMAL REVIEW completed AICD Interrogation, Remote (Prof) Silvio Serotvandana COLBERT INTERROGATION EVAL REMOTE </90 D 1/2/> LD CVDFB completed ICM Interrogation, Remote (Prof) Silvio Serotvandana COLBERT INTERROGATION EVAL REMOTE </30 D CV MNTR SYS completed ICM Interrogation, Remote (Tech) Silvio Serotvandana COLBERT INTERROGATION EVAL REMOTE </30 D TECH REVIEW completed ICM Interrogation, Remote (Prof) Silvio Serotvandana COLBERT INTERROGATION EVAL REMOTE </30 D CV MNTR SYS completed ICM Interrogation, Remote (Tech) Silvio Serotvandana COLBERT INTERROGATION EVAL REMOTE </30 D TECH REVIEW completed SNOMED-CT: [id number] Current Medications Documented Silvio Schulte MD completed ICM Interrogation, Remote (Prof) Silvio Schulte MD INTERROGATION EVAL REMOTE </30 D CV MNTR SYS completed ICM Interrogation, Remote (Tech) Silvio Serotvandana COLBERT INTERROGATION EVAL REMOTE </30 D TECH REVIEW completed ICM Interrogation, Remote (Prof) Silvio Serotvandana COLBERT INTERROGATION EVAL REMOTE </30 D CV MNTR SYS completed ICM Interrogation, Remote (Tech) Silvio Serotvandana COLBERT INTERROGATION EVAL REMOTE </30 D TECH REVIEW completed SNOMED-CT: [id number] Current Medications Documented Farhad Ewing MD completed ICM Interrogation, Remote (Prof) Silvio Serotvandana COLBERT INTERROGATION EVAL REMOTE </30 D CV MNTR SYS completed AICD Interrogation, Remote (Tech) Silvio Serota INTERROGATION REMOTE </90 D WAITER/WAITRESS INFORMAL REVIEW completed AICD Interrogation, Remote (Prof) Silvio Serotvandana COLBERT INTERROGATION EVAL REMOTE </90 D 1/2/> LD CVDFB completed SNOMED-CT: [id number] Current Medications Documented Farhad Ewing MD completed BLOOD COUNT HEMOGLOBIN Silvio Schulte MD completed FVC - 59236 Silvio Schulte MD complet ed FRC - 22292 Silvio Schulte MD complet ed DLCO - 00259 Silvio Schulte MD comple akhil SNOMED-CT: [id number] Current Medications Documented Silvio Schulte MD completed ICM Interrogation, Remote (Prof) Silvio Schulte MD INTERROGATION EVAL REMOTE </30 D CV MNTR SYS completed ICM Interrogation, Remote (Tech) Silvio Schulte MD INTERROGATION EVAL REMOTE </30 D TECH REVIEW completed ICM Interrogation, Remote (Prof) Silvio Schulte MD INTERROGATION EVAL REMOTE </30 D CV MNTR SYS completed ICM Interrogation, Remote (Tech) Silvio Schulte MD INTERROGATION EVAL REMOTE </30 D TECH REVIEW completed ICM Interrogation, Remote (Prof) Silvio Schulte MD INTERROGATION EVAL REMOTE </30 D CV MNTR SYS completed AICD Interrogation, Remote (Tech) Silvio Schulte MD INTERROGATION REMOTE </90 D WAITER/WAITRESS INFORMAL REVIEW completed AICD Interrogation, Remote (Prof) Silvio Schulte MD INTERROGATION EVAL REMOTE </90 D 1/2/> LD CVDFB completed ICM Interrogation, Remote (Prof) Silvio Schulte MD INTERROGATION EVAL REMOTE </30 D CV MNTR SYS completed ICM Interrogation, Remote (Tech) Silvio Schulte MD INTERROGATION EVAL REMOTE </30 D TECH REVIEW completed SNOMED-CT: [id number] Physical Exam, Performed: Pulse Exam of Foot Parth Olivera MD completed EKG Parth mclaughlin MD completed SNOMED-CT: [id number] Current Medications Documented Parth Olivera MD completed ICM Interrogation, Remote (Prof) Silvio Schulte MD INTERROGATION EVAL REMOTE </30 D CV MNTR SYS completed ICM Interrogation, Remote (Tech) Silvio Serotvandana COLBERT INTERROGATION EVAL REMOTE </30 D TECH REVIEW completed SNOMED-CT: [id number] Current Medications Documented Silvio Schulte MD completed ICM Interrogation, Remote (Prof) Silvio Serotvandana COLBERT INTERROGATION EVAL REMOTE </30 D CV MNTR SYS completed AICD Interrogation, Remote (Tech) Silvio Serota INTERROGATION REMOTE </90 D WAITER/WAITRESS INFORMAL REVIEW completed AICD Interrogation, Remote (Prof) Silvio Serotvandana COLBERT INTERROGATION EVAL REMOTE </90 D 1/2/> LD CVDFB completed ICM Interrogation, Remote (Prof) Silvio Serotvandana COLBERT INTERROGATION EVAL REMOTE </30 D CV MNTR SYS completed ICM Interrogation, Remote (Tech) Silvio Serotvandana COLBERT INTERROGATION EVAL REMOTE </30 D TECH REVIEW completed ICM Interrogation, Remote (Prof) Silvio Serotvandana COLBERT INTERROGATION EVAL REMOTE </30 D CV MNTR SYS completed ICM Interrogation, Remote (Tech) Silvio Serota INTERROGATION EVAL REMOTE </30 D TECH REVIEW completed AICD Interrogation, Remote (Tech) Silvio Serotvandana COLBERT INTERROGATION REMOTE </90 D WAITER/WAITRESS INFORMAL REVIEW completed AICD Interrogation, Remote (Prof) Silvio Serotvandana COLBERT INTERROGATION EVAL REMOTE </90 D 1/2/> LD CVDFB completed ICM Interrogation, Remote (Prof) Silvoi Serota INTERROGATION EVAL REMOTE </30 D CV MNTR SYS completed AICD Interrogation, Remote (Tech) Silvio Serota INTERROGATION REMOTE </90 D WAITER/WAITRESS INFORMAL REVIEW completed AICD Interrogation, Remote (Prof) Silvio Serota INTERROGATION EVAL REMOTE </90 D 1/2/> LD CVDFB completed ICM Interrogation, Remote (Prof) Silvio Serota INTERROGATION EVAL REMOTE </30 D CV MNTR SYS completed ICM Interrogation, Remote (Tech) Silvio Schulte MD INTERROGATION EVAL REMOTE </30 D TECH REVIEW completed BLOOD COUNT HEMOGLOBIN Silvio Schulte MD completed FVC - 07388 Silvio Schulte MD complet ed FRC - 78075 Silvio Schulte MD complet ed DLCO - 30301 Silvio Schulte MD comple akhil SNOMED-CT: [id number] Smoking Cessation Counseling Silvio Schulte MD completed SNOMED-CT: [id number] Physical Exam, Performed: Pulse Exam of Foot Silvio Schulte MD completed EKG Silvio Schulte MD complete d SNOMED-CT: [id number] Current Medications Documented Silvio Schulte MD completed ICM Interrogation, Remote (Prof) Silvio Schulte MD INTERROGATION EVAL REMOTE </30 D CV MNTR SYS completed ICM Interrogation, Remote (Tech) Silvio Schulte MD INTERROGATION EVAL REMOTE </30 D TECH REVIEW completed ICM Interrogation, Remote (Prof) Silvio Schulte MD INTERROGATION EVAL REMOTE </30 D CV MNTR SYS completed AICD Interrogation, Remote (Tech) Silvio Schulte MD INTERROGATION REMOTE </90 D WAITER/WAITRESS INFORMAL REVIEW completed AICD Interrogation, Remote (Prof) Silvio Schulte MD INTERROGATION EVAL REMOTE </90 D 1/2/> LD CVDFB completed ICM Interrogation, Remote (Prof) Silvio Schulte MD INTERROGATION EVAL REMOTE </30 D CV MNTR SYS completed ICM Interrogation, Remote (Tech) Silvio Schulte MD INTERROGATION EVAL REMOTE </30 D TECH REVIEW completed ICM Interrogation, Remote (Prof) Silvio Schulte MD INTERROGATION EVAL REMOTE </30 D CV MNTR SYS completed ICM Interrogation, Remote (Tech) Silvio Schulte MD INTERROGATION EVAL REMOTE </30 D TECH REVIEW completed ICM Interrogation, Remote (Prof) Silvio Schulte MD INTERROGATION EVAL REMOTE </30 D CV MNTR SYS completed AICD Interrogation, Remote (Tech) Silvio Serota INTERROGATION REMOTE </90 D WAITER/WAITRESS INFORMAL REVIEW completed AICD Interrogation, Remote (Prof) Silvio Serota INTERROGATION EVAL REMOTE </90 D 1/2/> LD CVDFB completed ICM Interrogation, Remote (Prof) Silvio Serota INTERROGATION EVAL REMOTE </30 D CV MNTR SYS completed ICM Interrogation, Remote (Tech) Silvio Serota MD INTERROGATION EVAL REMOTE </30 D TECH REVIEW completed ICM Interrogation, Remote (Prof) Silvio Serota MD INTERROGATION EVAL REMOTE </30 D CV MNTR SYS completed ICM Interrogation, Remote (Tech) Silvio Serota INTERROGATION EVAL REMOTE </30 D TECH REVIEW completed ICM Interrogation, Remote (Prof) Silvio Serota INTERROGATION EVAL REMOTE </30 D CV MNTR SYS completed AICD Interrogation, Remote (Tech) Silvio Serota INTERROGATION REMOTE </90 D WAITER/WAITRESS INFORMAL REVIEW completed AICD Interrogation, Remote (Prof) Silvio Serota INTERROGATION EVAL REMOTE </90 D 1/2/> LD CVDFB completed ICM Interrogation, Remote (Prof) Silvio Serota INTERROGATION EVAL REMOTE </30 D CV MNTR SYS completed ICM Interrogation, Remote (Tech) Silvio Serota INTERROGATION EVAL REMOTE </30 D TECH REVIEW completed ICM Interrogation, Remote (Prof) Silvio Serota MD INTERROGATION EVAL REMOTE </30 D CV MNTR SYS completed ICM Interrogation, Remote (Tech) Silvio Serota MD INTERROGATION EVAL REMOTE </30 D TECH REVIEW completed ICM Interrogation, Remote (Prof) Silvio Serota MD INTERROGATION EVAL REMOTE </30 D CV MNTR SYS completed AICD Interrogation, Remote (Tech) Silvio Serota INTERROGATION REMOTE </90 D WAITER/WAITRESS INFORMAL REVIEW completed AICD Interrogation, Remote (Prof) Silvio Schulte MD INTERROGATION EVAL REMOTE </90 D 1/2/> LD CVDFB completed ICM Interrogation, Remote (Prof) Silvio Schulte MD INTERROGATION EVAL REMOTE </30 D CV MNTR SYS completed ICM Interrogation, Remote (Tech) Silvio Schulte MD INTERROGATION EVAL REMOTE </30 D TECH REVIEW completed ICM Interrogation, Remote (Prof) Silvio Schulte MD INTERROGATION EVAL REMOTE </30 D CV MNTR SYS completed ICM Interrogation, Remote (Tech) Silvio Schulte MD INTERROGATION EVAL REMOTE </30 D TECH REVIEW completed EKG Silvio Schulte MD complete d EKG Silvio Schulte MD complete d DLCO - 45778 Silvio Schulte MD comple akhil FR - 76262 Silvio Schulte MD complet ed [facility] - [id number] Silvio Schulte MD complet ed Lipid Strip Lenny Razo MD complet ed EKG Lenny Razo MD complete d
--- OUTSIDE RECORDS SUMMARY | 2024-08-16 19:30 | XMS_ITS | Encounter Summary ---
Author Organization [facility] Address [address] [place] [address] Phone Care Team Providers Care Picking Machine Operator Helper Name Role Phone Quang Locke DO Unavailable [phone] Keith Craft MD Primary Care Provider [phone] Bri Rollins RN Unavailable Unavailable Silvio Schulte MD Unavailable [phone] Bri Rollins RN Unavailable Unavailable Werner Swift MD Unavailable Liz Capellan DO Primary Care Provider [phone] Yasmin Restrepo MD Unavailable Reason for Visit * Reason Comments Medication Refill Encounter Details Date Type Department Care Team (Late st Contact Info) Description 11/01/2020 Refill [facility] #2 [place] [address] Keith Craft MD #1 [place] [address] Medication Refill Social History Tobacco Use Types [...] right upper lobe due to infectious organism [facility] - Family Medicine Keith Lemus MD 4 weeks ago Hypoglycemia [facility] Keith Lemus MD 4 months ago Mixed hyperlipidemia [facility] Keith Lemus MD 6 months ago Pneumonia of right upper lobe due to infectious organism [facility] - Family Medicine Keith Lemus MD 9 months ago Acute non-recurrent maxillary sinusitis [facility] - Family Medicine Keith Lemus MD Upcoming Appointments Future Appointments Today [address] Mammography, [facility] In 2 months Keith Craft MD [facility] Family [facility], [facility] SUPPLY CHAIN INTERN - Recent and Past Visits Recent Visits [...] 08/27/2024 1:15 PM CDT Office Visit [facility] - Endocrinology [facility] #2 [place] [address] Yasmin Restrepo MD #[address] [address] 09/02/2024 2:00 PM CDT [facility]ointment [facility] 1 [place] [address] Werner Swift MD #2 [place] [address] Discharge Disposition: Discharged to home or Selfcare 10/08/2024 1:40 PM CDT Office Visit [facility] Family [facility] #2 [facility] [place] [address] Liz Capellan, DO 2 Germain [facility]. [address] [place] [address] 11/16/2024 1:00 PM CDT Office Visit [facility] - Pulmonology & Sleep Medicine - [place] #2 [place] [address] Werner Swift MD #2 [place] [address] documented as of this encounter Visit Diagnoses Diagnosis Anxiety and depression Dysthymic disorder documented in this encounter Additional Health Concerns Infection Onset Date Last Indicated Resolved Time COVID - 19 01/25/2021 01/25/2021 01/31/2021 8:10 AM CDT Respiratory Rule Out - RPA 01/30/2021 01/30/2021 0 02/01/2021 12:45 AM CDT COVID - 19 07/23/2021 07/23/2021 07/24/2021 6:31 AM INVESTMENT EXECUTIVE COVID - 19 10/19/2021 10/19/2021 10/20/2021 7:45 AM CDT Respiratory Rule Out - RPA 10/19/2021 10/19/2021 0 10/20/2021 2:10 PM CDT Stenotrophomonas maltophilia Comment:Must have a follow up respiratory sample to remove isolation flag. 10/20/2021 10/20/2021 COVID - 19 04/20/2022 04/20/2022 04/30/2022 12:1 8 AM INVESTMENT EXECUTIVE COVID - 19 07/18/2022 07/18/2022 07/28/2022 12:1 6 AM INVESTMENT EXECUTIVE COVID - 19 08/21/2022 08/21/2022 08/22/2022 8:31 AM CDT Respiratory Rule Out - RPA 08/21/2022 08/21/2022 0 08/22/2022 3:21 PM CDT COVID - 19 04/18/2023 04/18/2023 04/28/2023 12:1 6 AM INVESTMENT EXECUTIVE COVID - 19 07/13/2023 07/13/2023 07/23/2023 12:1 6 AM INVESTMENT EXECUTIVE Respiratory Rule Out - RPA 03/17/2024 03/17/2024 1 3:36 PM CDT COVID - 19 04/27/2024 04/27/2024 04/27/2024 2:19 PM INVESTMENT EXECUTIVE Respiratory Rule-Out 07/24/2024 07/24/2024 025 2:29 PM INVESTMENT EXECUTIVE COVID - 19 07/24/2024 07/24/2024 07/24/2024 2:29 PM INVESTMENT EXECUTIVE Assessment Noted Time PHQ-9 Depression Total Score: 2 06/07/19 2:34 PM INVESTMENT EXECUTIVE documented as of this encounter Care Teams Picking Machine Operator Helper Relationship Specialty Start Date End Date Keith Craft MD PCP - General Family Medicine 01/14/19 12/26/23 Liz Capellan DO [address] [address] PCP - General Family Medicine 12/27/23 Quang Locke DO Gastroenterology 01/18/16 Bri Rollins RN [place] Scrip Clerk 03/07/21 05/22/23 [place] [id number] [address] 05/25/21 Bri Rollins RN [place] Nurse Scrip Clerk 03/07/21 05/23/23 Werner Swift MD #2 [place] [address] Consulting Physician Pulmonary Disease 01/30/22 Yasmin Restrepo MD #2 [place] [phone] Consulting Physician Endocrinology 07/20/24 documented as of this encounter
--- OUTSIDE RECORDS SUMMARY | 2024-08-16 19:30 | XMS_ITS | Encounter Summary ---
Author Organization [facility] Address [address] [place] [address] Phone Care Team Providers Care Heel Scourer Name Role Phone Quang Locke DO Unavailable [phone] Keith Craft MD Primary Care Provider [phone] Bri Rollins RN Unavailable Unavailable Silvio Schulte MD Unavailable [phone] Bri Rollins RN Unavailable Unavailable Werner Swift MD Unavailable Liz Capellan DO Primary Care Provider [phone] Yasmin Restrepo MD Unavailable Reason for Visit * Reason Onset Date Comments Medication Refill Medication Refill 10/26/2020 Encounter Details Date Type Department Care Team (Late st Contact Info) Description 10/23/2020 Refill [facility] - Family Medicine [facility] #2 [place] [address] Keith Craft MD #1 [place] [address] Medication Refill; Medication Refill Social History Tobacco [...] right upper lobe due to infectious organism [facility] - Family Medicine - Keith Jenkins MD 3 weeks ago Hypoglycemia [facility] Keith Lemus MD 4 months ago Mixed hyperlipidemia [facility] Keith Lemus MD 6 months ago Pneumonia of right upper lobe due to infectious organism [facility] Keith Lemus MD 8 months ago Acute non-recurrent maxillary sinusitis [facility] Keith Lemus MD Upcoming Appointments Future Appointments In [address] Mammography, [facility] In 2 months Keith Craft MD [facility], [facility] FACILITY MAINTENANCE HELPER - Recent and Past Visits Recent Visits [...] [place] 07/27/19 Office Visit Keith Craft MD [facility] [place] Showing recent visits within past 460 [...] right upper lobe due to infectious organism [facility] Medical [facility] - Family Medicine - Keith Jenkins MD 3 weeks ago Hypoglycemia [facility] - Keith Jenkins MD 4 months ago Mixed hyperlipidemia [facility] Family Medicine - Keith Jenkins MD 6 months ago Pneumonia of right upper lobe due to infectious organism [facility] Medical [facility] Family Medicine Keith Lemus MD 8 months ago Acute non-recurrent maxillary sinusitis [facility] Medical [facility] Family [facility] - Keith Jenkins MD Upcoming Appointments Future Appointments In [address] Mammography, [facility] In 2 months Keith Craft MD [facility], [facility] FACILITY MAINTENANCE HELPER - Recent and Past Visits Recent Visits Date Type Provider Dept 10/12/20 Office Visit Keith Cratf MD [facility] 10/04/20 Office Visit Keith [...] Provider Dept 01/04/21 Appointment Keith Craft MD [facility] [place] [facility] Showing future appointments within next 90 days with a meds authorizing provider and meeting all other requirements documented in this encounter Plan of Treatment Upcoming Encounters Date Type Department Care Team (Late st Contact Info) Description 08/27/2024 1:15 PM CDT Office Visit [facility] - Endocrinology - [place] #2 [place] [address] Yasmin eRstrepo MD #[address] [address] 09/02/2024 2:00 PM CDT Appointment [facility] 1 [place] [address] Werner Swift MD #2 [place] [address] Discharge Disposition: Discharged to home or Selfcare 10/08/2024 1:40 PM CDT Office Visit [facility] Family Medicine - [place] #2 [place] [address] Liz Capellan, DO [address] [address] 11/16/2024 1:00 PM CDT Office Visit [facility] - Pulmonology & Sleep Medicine [facility] #[address] [place] [address] Werner Swift MD #[address] [place] [address] documented as of this encounter Visit Diagnoses [...] - 19 07/23/2021 07/23/2021 07/24/2021 6:31 AM CEREAL POPPER COVID - 19 10/19/2021 10/19/2021 10/20/2021 7:45 AM CDT Respiratory Rule Out - RPA 10/19/2021 10/19/2021 0 10/20/2021 2:10 PM CDT Stenotrophomonas maltophilia Comment:Must have a follow up respiratory sample to remove isolation flag. 10/20/2021 10/20/2021 COVID - 19 04/20/2022 04/20/2022 04/30/2022 12:1 8 AM CEREAL POPPER COVID - 19 07/18/2022 07/18/2022 07/28/2022 12:1 6 AM CEREAL POPPER COVID - 19 08/21/2022 08/21/2022 08/22/2022 8:31 AM CDT Respiratory Rule Out - RPA 08/21/2022 08/21/2022 0 08/22/2022 3:21 PM CDT COVID - 19 04/18/2023 04/18/2023 04/28/2023 12:1 6 AM CEREAL POPPER COVID - 19 07/13/2023 07/13/2023 07/23/2023 12:1 6 AM CEREAL POPPER Respiratory Rule Out - RPA 03/17/2024 03/17/2024 1 3:36 PM CDT COVID - 19 04/27/2024 04/27/2024 04/27/2024 2:19 PM CEREAL POPPER Respiratory Rule-Out 07/24/2024 07/24/2024 025 2:29 PM CEREAL POPPER COVID - 19 07/24/2024 07/24/2024 07/24/2024 2:29 PM CEREAL POPPER Assessment Noted Time PHQ-9 Depression Total Score: 2 06/07/19 21 2:34 PM CEREAL POPPER documented as of this encounter Care Teams Heel Scourer Relationship Specialty Start Date End Date Keith Craft MD PCP - General Family Medicine 01/14/19 12/26/23 Liz Capellan DO [address] [address] PCP - General Family Medicine 12/27/23 Quang Locke DO Gastroenterology 01/18/16 Bri Rollins, RN [place] Supervisor Park Workers 03/07/21 05/22/23 [place] [address] [address] 05/25/21 Bri Rollins, K[place] Nurse Supervisor Park Workers 03/07/21 05/23/23 Werner Swift MD #2 [place] [address] Consulting Physician Pulmonary Disease 01/30/22 Yasmin Restrepo MD #[address] [phone] Consulting Physician Endocrinology 07/20/24 documented as of this encounter
--- OUTSIDE RECORDS SUMMARY | 2024-08-16 19:30 | XMS_ITS | Encounter Summary ---
Author Organization [facility] Address [address] [place] [address] Phone Care Team Providers Care Ship Joiner Name Role Phone Quang Locke DO Unavailable [phone] Keith Craft MD Primary Care Provider [phone] Bri Rollins RN Unavailable Unavailable Silvio Schulte MD Unavailable [phone] Bri Rollins RN Unavailable Unavailable Werner Swift MD Unavailable Liz Capellan DO Primary Care Provider [phone] Yasmin Restrepo MD Unavailable Reason for Visit * Reason Comments Medication Refill Encounter Details Date Type Department Care Team (Late st Contact Info) Description 06/04/2022 Refill [facility] #2 [place] [address] Keith Craft MD #1 [place] [address] Medication Refill Social History Tobacco Use Types [...] Coronavirus/COVID-19? No / Unsure 06/06/2022 2:21 PM C 13 CATAPULT OPERATOR documented as of this encounter Miscellaneous Notes * Telephone Encounter - Goergia Roblero RN - 06/04/2022 11:05 AM C 13 CATAPULT OPERATOR Medication failed the protocol, provider to review [...] 03/02/22 Procedure Visit [facility] 03/02/22 Office Visit Keith [...] 52 (L) >=60 Final ergocalciferol (VITAMIN D) 58043 UNIT Capsule [Pharmacy Med Name: VITAMIN D [id number] CAPSULE] 12 Capsule 0 Sig: TAKE ONE CAPSULE BY MOUTH ONE TIME WEEKLY Vitamin Supplements (Adult) Protocol Failed - 06/04/2022 10:20 AM Failed - Vitamin D less than 1.25mg Passed - Visit with relevant provider in past 12 months or upcoming 90 days Recent Visits Date Type Provider Dept 03/02/22 Procedure Visit [facility] 03/02/22 Office Visit Keith Craft MD [facility] 11/03/21 Office Visit Keith Craft MD [facility] 10/19/21 Office Visit Keith Craft MD [facility] 10/05/21 Office Visit Keith Craft MD [facility] 09/08/21 Office Visit Brie Denis PAC [facility] [...] 03/02/22 Procedure Visit [facility] 03/02/22 Office Visit Keith Craft MD [facility] 11/03/21 Office Visit Keith Craft MD [facility] 10/19/21 Office Visit Keith Craft MD [facility] 10/05/21 Office Visit Keith Craft MD [facility] 09/08/21 Office Visit Brie Denis, [facility] 08/14/21 Office Visit Keith Craft MD [...] 03/02/22 Procedure Visit [facility] 03/02/22 Office Visit Keith [...] [facility] 03/[facility]22 Office Visit Keith Craft MD [facility] [place] 11/03/21 Office Visit Keith Craft MD [facility] 10/19/21 Office Visit Keith Craft MD [facility] 10/05/21 Office Visit Keith Craft MD [facility] 09/08/21 Office Visit Brie Denis, [facility] 08/14/21 Office Visit Keith Craft MD [facility] [place] 07/31/21 Office Visit Keith Craft MD [facility] Showing recent visits within past 365 [...] [facility] 03/02/22 Office Visit Keith Craft MD [facility] 11/03/21 Office Visit Keith Craft MD [facility] 10/19/21 Office Visit Keith Craft MD [facility] 10/05/21 Office [facility] 09/08/21 Office Visit Brie Denis PAC [facility] 08/14/21 [facility]21 Office Visit Keith Craft MD [facility] Showing recent visits within past 365 days and meeting all other requirements Future Appointments Date Type Provider Dept 06/07/22 Appointment Keith Craft MD [facility] Showing future appointments within next 90 days and meeting all other requirements C 13 CATAPULT OPERATOR documented in this encounter Plan of Treatment Upcoming Encounters Date Type Department Care Team (Late st Contact Info) Description 08/27/2024 1:15 PM CDT Office Visit [facility] - Endocrinology - [place] #2 [place] [address] Yasmin Restrepo MD #[address] [phone] 09/02/2024 2:00 PM CDT Appointment [facility] Respiratory Therapy 1 [place] [phone] Werner Swift MD #2 [place] [address] Discharge Disposition: Discharged to home or Selfcare 10/08/2024 1:40 PM CDT Office Visit [facility] - Family Medicine - [place] #2 [place] [phone] Liz Capellan, DO [address] [address] 11/16/2024 1:00 PM CDT Office Visit [facility] - Pulmonology & Sleep Medicine - [place] #2 [facility] [address] Werner Swift MD #2 [place] [address] documented as of this encounter Goals Goal [...] Zones/Action plan education. I will notify my Team Assistant if my symptoms fall in the [...] 19 07/18/2022 07/18/2022 07/28/2022 12:1 6 AM C 13 CATAPULT OPERATOR COVID - 19 08/21/2022 08/21/2022 08/22/2022 8:31 AM CDT Respiratory Rule Out - RPA 08/21/2022 08/21/2022 0 08/22/2022 3:21 PM CDT COVID - 19 04/18/2023 04/18/2023 04/28/2023 12:1 6 AM C 13 CATAPULT OPERATOR COVID - 19 07/13/2023 07/13/2023 07/23/2023 12:1 6 AM C 13 CATAPULT OPERATOR Respiratory Rule Out - RPA 03/17/2024 03/17/2024 1 3:36 PM CDT COVID - 19 04/27/2024 04/27/2024 04/27/2024 2:19 PM C 13 CATAPULT OPERATOR Respiratory Rule-Out 07/24/2024 07/24/2024 025 2:29 PM C 13 CATAPULT OPERATOR COVID - 19 07/24/2024 07/24/2024 07/24/2024 2:29 PM C 13 CATAPULT OPERATOR Assessment Noted Time PHQ-9 Depression Total Score: 1 03/07/20 21 10:29 AM CDT documented as of this encounter Care Teams Ship Joiner Relationship Specialty Start Date End Date Keith Craft MD PCP - General Family Medicine 01/14/19 12/26/23 Liz Capellan DO [address] [address] PCP - General Family Medicine 12/27/23 Quang Locke DO Gastroenterology 01/18/16 Bri Rollins RN [place] Team Assistant 03/07/21 05/22/23 [place] [address] [address] 05/25/21 Rollins, Bri M, RN [place] Nurse Team Assistant 03/07/21 05/23/23 Werner Swift MD #2 [place] [address] Consulting Physician Pulmonary Disease 01/30/22 Yasmin Restrepo MD #[address] [address] Consulting Physician Endocrinology 07/20/24 documented as of this encounter
--- OUTSIDE RECORDS SUMMARY | 2024-08-16 19:30 | XMS_ITS | Encounter Summary ---
Author Organization [facility] Address [address] [place] [address] Phone Care Team Providers Care New Accounts Banking Representative Name Role Phone Quang Locke DO Unavailable [phone] Keith Craft MD Primary Care Provider [phone] Bri Rollins RN Unavailable Unavailable Silvio Schulte MD Unavailable [phone] Bri Rollins RN Unavailable Unavailable Werner Swift MD Unavailable Liz Capellan DO Primary Care Provider [phone] Yasmin Restrepo MD Unavailable Reason for Visit * Reason Comments Medication Refill Encounter Details Date Type Department Care Team (Late st Contact Info) Description 05/25/2022 Refill [facility] #2 [place] [address] Keith Craft MD #1 [place] [address] Medication Refill Social History Tobacco Use Types [...] Coronavirus/COVID-19? No / Unsure 05/01/2022 1:41 PM MOBILE EQUIPMENT SERVICER documented as of this encounter Miscellaneous Notes [...] Procedure [facility]22 Office Visit Keith Craft MD [facility] 11/03/21 Office Visit Keith Craft MD [facility] 10/19/21 Office Visit [facility] 10/05/21 Office Visit Keith Craft MD [facility] [place] 09/08/21 Office Visit Brie Denis, PAC [facility] 08/14/21 Office Visit Keith [facility] 07/31/21 Office Visit Keith Craft MD [facility] 05/25/21 Office Visit Marcin Anderson APRN, [employer] [facility] Showing recent visits within past 365 days and meeting all other requirements Future Appointments Date Type Provider Dept 06/07/22 Appointment Keith Craft MD [facility] Showing future appointments within next 90 days and meeting all other requirements LE EQUIPMENT SERVICER documented in this encounter Plan of Treatment Upcoming Encounters Date Type Department Care Team (Late st Contact Info) Description 08/27/2024 1:15 PM CDT Office Visit [facility] - Endocrinology - [place] #2 [place] [address] Yasmin Restrepo MD #[address] [phone] 09/02/2024 2:00 PM CDT Appointment [facility] Respiratory Therapy 1 [place] [address] Werner Swift MD #2 [place] [address] Discharge Disposition: Discharged to home or Selfcare 10/08/2024 1:40 PM CDT Office Visit [facility] - Family Medicine - [place] #2 [place] [address] Liz Capellan, DO [address] [address] 11/16/2024 1:00 PM CDT Office Visit [facility] - Pulmonology & Sleep Medicine - [place] #2 [place] [address] Werner Swift MD #2 [place] [address] documented as of this encounter Goals Goal [...] Zones/Action plan education. I will notify my [place] Hand if my symptoms fall in the y [...] 19 07/18/2022 07/18/2022 07/28/2022 12:1 6 AM MOBILE EQUIPMENT SERVICER COVID - 19 08/21/2022 08/21/2022 08/22/2022 8:31 AM CDT Respiratory Rule Out - RPA 08/21/2022 08/21/2022 0 08/22/2022 3:21 PM CDT COVID - 19 04/18/2023 04/18/2023 04/28/2023 12:1 6 AM MOBILE EQUIPMENT SERVICER COVID - 19 07/13/2023 07/13/2023 07/23/2023 12:1 6 AM MOBILE EQUIPMENT SERVICER Respiratory Rule Out - RPA 03/17/2024 03/17/2024 1 3:36 PM CDT COVID - 19 04/27/2024 04/27/2024 04/27/2024 2:19 PM MOBILE EQUIPMENT SERVICER Respiratory Rule-Out 07/24/2024 07/24/2024 025 2:29 PM MOBILE EQUIPMENT SERVICER COVID - 19 07/24/2024 07/24/2024 07/24/2024 2:29 PM MOBILE EQUIPMENT SERVICER Assessment Noted Time PHQ-9 Depression Total Score: 1 03/07/20 10:29 AM CDT documented as of this encounter Care Teams New Accounts Banking Representative Relationship Specialty Start Date End Date Keith Craft MD PCP - General Family Medicine 01/14/19 12/26/23 Liz Capellan DO [address] [address] PCP - General Family Medicine 12/27/23 Quang Locke DO Gastroenterology 01/18/16 Bri Rollins RN [place] [employer] [facility] 03/07/21 05/22/23 [place] [address] [address] 05/25/21 Bri Rollins RN [place] Nurse [facility] 03/07/21 05/23/23 Werner Swift MD #2 [place] [address] Consulting Physician Pulmonary Disease 01/30/22 Yasmin Restrepo MD #[address] [address] Consulting Physician Endocrinology 07/20/24 documented as of this encounter
--- OUTSIDE RECORDS SUMMARY | 2024-08-16 19:30 | XMS_ITS | Encounter Summary ---
Author Organization [facility] Address [address] [place] [address] Phone Care Team Providers Care Core Baker Name Role Phone Quang Locke DO Unavailable [phone] Keith Craft MD Primary Care Provider [phone] Bri Rollins RN Unavailable Unavailable Silvio Schulte MD Unavailable [phone] Bri Rollins RN Unavailable Unavailable Werner Swift MD Unavailable Liz Capellan DO Primary Care Provider [phone] Yasmin Restrepo MD Unavailable Reason for Visit * Reason Comments Medication Refill Encounter Details Date Type Department Care Team (Late st Contact Info) Description 05/01/2022 Refill [facility] Family Medicine [facility] #2 [place] [address] Keith Craft MD #1 [place] [address] Medication Refill Social History Tobacco Use Types [...] Coronavirus/COVID-19? No / Unsure 05/01/2022 1:41 PM PROP CUTTER documented as of this encounter Miscellaneous [...] Bridge 03/02/22 Office Visit Keith Craft MD [facility] 11/03/21 Office Visit Keith Craft MD [facility] 10/19/21 Office Visit Keith Craft MD [facility] 10/05/21 Office Visit Keith Craft MD [facility] 09/08/21 Office Visit Brie Denis, PAC [facility] 08/14/21 Office Visit Keith Craft MD [facility] 07/31/21 Office Visit Keith [facility] MD [facility] 05/25/21 Office Visit Marcin Anderson APRN, ASSOCIATE PROFESSOR OF THEOLOGY [facility] 05/05/21 Office Visit Brie Denis, NICOLE [facility] Showing recent visits within past 365 days and meeting all other requirements Future Appointments Date Type Provider Dept 06/04/22 Appointment Keith Craft MD [facility] Showing future appointments within next 90 days and meeting all other requirements CUTTER documented in this encounter Plan of Treatment Upcoming Encounters Date Type Department Care Team (Late st Contact Info) Description 08/27/2024 1:15 PM CDT Office Visit [facility] - Endocrinology - [place] #2 [place] [address] Yasmin Restrepo MD #[address] [phone] 09/02/2024 2:00 PM CDT Appointment [facility] Respiratory Therapy 1 [place] [address] Werner Swift MD #2 [place] [address] Discharge Disposition: Discharged to home or Selfcare 10/08/2024 1:40 PM CDT Office Visit [facility] Medical [facility] - Family Medicine - [place] #[address] [place] [address] Liz Capellan, DO [address] [address] 11/16/2024 1:00 PM CDT Office Visit [facility] - Pulmonology & Sleep Medicine - [place] #2 [place] [address] Werner Swift MD #2 [place] [address] documented as of this encounter Goals Goal [...] education. I will notify my Director Of Blood if my symptoms fall in the y [...] 19 07/18/2022 07/18/2022 07/28/2022 12:1 6 AM PROP CUTTER COVID - 19 08/21/2022 08/21/2022 08/22/2022 8:31 AM CDT Respiratory Rule Out - RPA 08/21/2022 08/21/2022 0 08/22/2022 3:21 PM CDT COVID - 19 04/18/2023 04/18/2023 04/28/2023 12:1 6 AM PROP CUTTER COVID - 19 07/13/2023 07/13/2023 07/23/2023 12:1 6 AM PROP CUTTER Respiratory Rule Out - RPA 03/17/2024 03/17/2024 1 3:36 PM CDT COVID - 19 04/27/2024 04/27/2024 04/27/2024 2:19 PM PROP CUTTER Respiratory Rule-Out 07/24/2024 07/24/2024 025 2:29 PM PROP CUTTER COVID - 19 07/24/2024 07/24/2024 07/24/2024 2:29 PM PROP CUTTER Assessment Noted Time PHQ-9 Depression Total Score: 1 03/07/20 10:29 AM CDT documented as of this encounter Care Teams Core Baker Relationship Specialty Start Date End Date Keith Craft MD PCP - General Family Medicine 01/14/19 12/26/23 Liz Capellan DO [address] [id number] PCP - General Family Medicine 12/27/23 Quang Locke DO Gastroenterology 01/18/16 Bri Rollins, KATEY [place] Director Of Blood 03/07/21 05/22/23 [place] [id number] [address] 05/25/21 Bri Rollins RN [place] Nurse Director Of Blood 03/07/21 05/23/23 Werner Swift MD #2 [place] [address] Consulting Physician Pulmonary Disease 01/30/22 Yasmin Restrepo MD #[address] [place] [address] [address] Consulting Physician Endocrinology 07/20/24 documented as of this encounter
--- OUTSIDE RECORDS SUMMARY | 2024-08-16 19:30 | XMS_ITS | Encounter Summary ---
Author Organization [facility] Address [address] [place] [address] Phone Care Team Providers Care Landfill Gas Technician Name Role Phone Quang Locke DO Unavailable [phone] Keith Craft MD Primary Care Provider [phone] Bri Rollins RN Unavailable Unavailable Silvio Schulte MD Unavailable [phone] Bri Rollins RN Unavailable Unavailable Werner Swift MD Unavailable Liz Capellan DO Primary Care Provider [phone] Yasmin Restrepo MD Unavailable Reason for Visit * Reason Comments Medication Refill Encounter Details Date Type Department Care Team (Late st Contact Info) Description 02/12/2021 Refill [facility] Medicine [facility] #2 [place] [address] Keith Craft MD #1 [place] [address] Medication Refill Social History Tobacco Use Types [...] Office Visit [facility] - Endocrinology [facility] #2 [place] [address] Yasmin Restrepo MD #[address] [phone] 09/02/2024 2:00 PM CDT [facility] 1 [place] [address] Werner Swift MD #2 [place] [address] Discharge Disposition: Discharged to home or Selfcare 10/08/2024 1:40 PM CDT Office Visit [facility] - Family Medicine [facility] #2 [place] [address] Liz Capellan, DO [address] [address] 11/16/2024 1:00 PM CDT Office Visit [facility] - Pulmonology & Sleep Medicine [facility] [address] [place] [address] Werner Swift MD #2 [place] [address] documented as of this encounter Visit Diagnoses Diagnosis Anxiety and depression Dysthymic disorder documented in this encounter Additional Health Concerns Infection Onset Date Last Indicated Resolved Time COVID - 19 07/23/2021 07/23/2021 07/24/2021 6:31 AM COMMUNICATION COORDINATOR COVID - 19 10/19/2021 10/19/2021 10/20/2021 7:45 AM CDT Respiratory Rule Out - RPA 10/19/2021 10/19/2021 0 10/20/2021 2:10 PM CDT Stenotrophomonas maltophilia Comment:Must have a follow up respiratory sample to remove isolation flag. 10/20/2021 10/20/2021 COVID - 19 04/20/2022 04/20/2022 04/30/2022 12:1 8 AM COMMUNICATION COORDINATOR COVID - 19 07/18/2022 07/18/2022 07/28/2022 12:1 6 AM COMMUNICATION COORDINATOR COVID - 19 08/21/2022 08/21/2022 08/22/2022 8:31 AM CDT Respiratory Rule Out - RPA 08/21/2022 08/21/2022 0 08/22/2022 3:21 PM CDT COVID - 19 04/18/2023 04/18/2023 04/28/2023 12:1 6 AM COMMUNICATION COORDINATOR COVID - 19 07/13/2023 07/13/2023 07/23/2023 12:1 6 AM COMMUNICATION COORDINATOR Respiratory Rule Out - RPA 03/17/2024 03/17/2024 1 3:36 PM CDT COVID - 19 04/27/2024 04/27/2024 04/27/2024 2:19 PM COMMUNICATION COORDINATOR Respiratory Rule-Out 07/24/2024 07/24/2024 025 2:29 PM COMMUNICATION COORDINATOR COVID - 19 07/24/2024 07/24/2024 07/24/2024 2:29 PM COMMUNICATION COORDINATOR Assessment Noted Time PHQ-9 Depression Total Score: 0 02/04/20 11:12 AM CDT documented as of this encounter Care Teams Landfill Gas Technician Relationship Specialty Start Date End Date Keith Craft MD PCP - General Family Medicine 01/14/19 12/26/23 Liz Capellan DO [address] [id number] PCP - General Family Medicine 12/27/23 Quang Locke DO Gastroenterology 01/18/16 Bri Rollins, RN [place] Shoe Polisher 03/07/21 05/22/23 [place] [id number] [address] 05/25/21 Bri Rollins RN [place] Nurse Shoe Polisher 03/07/21 05/23/23 Werner Swift MD #2 [place] [address] Consulting Physician Pulmonary Disease 01/30/22 Yasmin Restrepo MD #[address] [phone] Consulting Physician Endocrinology 07/20/24 documented as of this encounter
--- OUTSIDE RECORDS SUMMARY | 2024-08-16 19:30 | XMS_ITS | Encounter Summary ---
Author Organization [facility] Address [address] [place] [address] Phone Care Team Providers Care Surgical Attendant Name Role Phone Quang Locke DO Unavailable [phone] Keith Craft MD Primary Care Provider [phone] Bri Rollins RN Unavailable Unavailable Silvio Schulte MD Unavailable Bri Rollins RN Unavailable Unavailable Werner Swift MD Unavailable Liz Capellan DO Primary Care Provider [phone] Yasmin Restrepo MD Unavailable Reason for Visit * Reason Comments Medication Refill Encounter Details Date Type Department Care Team (Late st Contact Info) Description 10/11/2020 [facility] [address] [place] [address] Keith Craft MD #1 [place] [address] Medication Refill Social History Tobacco Use Types [...] Visits 1 week ago Hypoglycemia [facility] - Family Medicine - Keith Jenkins MD 4 months ago Mixed hyperlipidemia [facility] Family Medicine - Keith Jenkins MD 5 months ago Pneumonia of right upper lobe due to infectious organism [facility] Family [facility] - Keith Jenkins MD 8 months ago Acute non-recurrent maxillary sinusitis [facility] Keith Jenkins MD 11 months ago Chronic prescription opiate use [facility] Upcoming Appointments Future Appointments Today Keith Craft MD [facility] In 2 months Keith Craft MD [facility] ARBORIST CLIMBER - Recent and Past Visits Recent Visits Date Type Provider Dept 10/04/20 Office Visit Keith Craft MD [facility] 06/07/20 Office Visit Keith Craft MD [facility] 04/25/20 Office Visit Keith Craft MD [facility] 02/02/20 Office Visit Keith Craft MD [facility] 11/02/19 Office Visit Keith Craft MD [facility] 07/27/19 Office Visit [facility] Showing recent visits within past 460 days with a meds authorizing provider and meeting all other requirements Today's Visits Date Type Provider Dept 10/12/20 Appointment Keith Craft MD [facility] Showing today's visits with a meds authorizing [...] Description 08/27/2024 1:15 PM CDT Office Visit [facility] Endocrinology [facility] #2 [place] [address] Yasmin Restrepo MD #[address] [address] 09/02/2024 2:00 PM CDT Appointment [facility] Respiratory Therapy 1 [facility] [place] [address] Werner Swift MD #2 [place] [address] Discharge Disposition: Discharged to home or Selfcare 10/08/2024 1:40 PM CDT Office Visit [facility] Family Medicine [facility] #2 [place] [address] Liz Capellan, DO [address] [address] 11/16/2024 1:00 PM CDT Office Visit [facility] Pulmonology & Sleep Medicine [facility] #2 [place] [address] Werner Swift MD #2 [place] [address] documented as of this encounter Visit Diagnoses Not on filedocumented in this encounter Additional Health Concerns Infection Onset Date Last Indicated Resolved Time COVID - 19 01/25/2021 01/25/2021 01/31/2021 8:10 AM CDT Respiratory Rule Out - RPA 01/30/2021 01/30/2021 0 02/01/2021 12:45 AM CDT COVID - 19 07/23/2021 07/23/2021 07/24/2021 6:31 AM OPTIMIZATION MANAGER COVID - 19 10/19/2021 10/19/2021 10/20/2021 7:45 AM CDT Respiratory Rule Out - RPA 10/19/2021 10/19/2021 0 10/20/2021 2:10 PM CDT Stenotrophomonas maltophilia Comment:Must have a follow up respiratory sample to remove isolation flag. 10/20/2021 10/20/2021 COVID - 19 04/20/2022 04/20/2022 04/30/2022 12:1 8 AM OPTIMIZATION MANAGER COVID - 19 07/18/2022 07/18/2022 07/28/2022 12:1 6 AM OPTIMIZATION MANAGER COVID - 19 08/21/2022 08/21/2022 08/22/2022 8:31 AM CDT Respiratory Rule Out - RPA 08/21/2022 08/21/2022 0 08/22/2022 3:21 PM CDT COVID - 19 04/18/2023 04/18/2023 04/28/2023 12:1 6 AM OPTIMIZATION MANAGER COVID - 19 07/13/2023 07/13/2023 07/23/2023 12:1 6 AM OPTIMIZATION MANAGER Respiratory Rule Out - RPA 03/17/2024 03/17/2024 1 3:36 PM CDT COVID - 19 04/27/2024 04/27/2024 04/27/2024 2:19 PM OPTIMIZATION MANAGER Respiratory Rule-Out 07/24/2024 07/24/2024 025 2:29 PM OPTIMIZATION MANAGER COVID - 19 07/24/2024 07/24/2024 07/24/2024 2:29 PM OPTIMIZATION MANAGER Assessment Noted Time PHQ-9 Depression Total Score: 2 06/07/19 21 2:34 PM OPTIMIZATION MANAGER documented as of this encounter Care Teams Surgical Attendant Relationship Specialty Start Date End Date Keith Craft MD PCP - General Family Medicine 01/14/19 12/26/23 Liz Capellan DO [address] [address] PCP - General Family Medicine 12/27/23 Quang Locke DO Gastroenterology 01/18/16 Bri Rollins RN [place] Institutional Research Director 03/07/21 05/22/23 [place] [id number] [address] 05/25/21 Bri Rollins RN [place] Nurse Institutional Research Director 03/07/21 05/23/23 Werner Swift MD #2 [place] [address] Consulting Physician Pulmonary Disease 01/30/22 Yasmin Restrepo MD #[address] [address] Consulting Physician Endocrinology 07/20/24 documented as of this encounter
--- OUTSIDE RECORDS SUMMARY | 2024-08-16 19:30 | XMS_ITS | Encounter Summary ---
Author Organization [facility] Address [address] [place] [address] Phone Care Team Providers Care Instructional Material Director Name Role Phone Quang Locke DO Unavailable [phone] Keith Craft MD Primary Care Provider [phone] Bri Rollins RN Unavailable Unavailable Silvio Schulte MD Unavailable Bri Rollins RN Unavailable Unavailable Werner Swift MD Unavailable Liz Capellan DO Primary Care Provider [phone] Yasmin Restrepo MD Unavailable Reason for Visit * Reason Comments Medication Refill Encounter Details Date Type Department Care Team (Late st Contact Info) Description 08/30/2020 Refill [facility] Family [facility] #2 [place] [address] Keith Craft MD #1 [place] [address] Medication Refill Social History Tobacco Use Types [...] Outpatient Visits 2 months ago Mixed hyperlipidemia [facility] Family Medicine Keith Lemus MD 4 months ago Pneumonia of right upper lobe due to infectious organism [facility] Keith Lemus MD 7 months ago Acute non-recurrent maxillary sinusitis [facility] Medicine Keith Lemus MD 10 months ago Chronic prescription opiate use [facility] Keith Lemus MD 1 year ago 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 [facility] Keith Laughlin MD Upcoming Appointments Future Appointments In 1 month Keith Craft MD [facility] YULIA Mckeon TOOLS DEVELOPER - Recent and Past Visits Recent Visits Date Type Provider Dept 06/07/20 Office Visit Keith Craft MD [facility] 04/25/20 [facility] 02/02/20 Office Visit Keith Craft MD [facility] 11/02/19 Office Visit Keith Craft MD [facility] 07/27/19 Office Visit Keith Craft MD [facility] 06/10/19 Office Visit [facility] Show[facility] recent visits within past 460 days with a meds authorizing provider and meeting all other requirements Future Appointments Date Type Provider Dept 10/04/20 Appointment Keith Craft MD [facility] [place] Showing future appointments within next 90 days with a meds authorizing provider and meeting all other requirements documented in this encounter Plan of Treatment Upcoming Encounters Date Type Department Care Team (Late st Contact Info) Description 08/27/2024 1:15 PM CDT Office Visit [facility] - Endocrinology - [place] #2 [place] [address] Yasmin Restrepo MD #[address] [address] 09/02/2024 2:00 PM CDT [facility] 1 [place] [address] Werner Swift MD #2 [place] [address] Discharge Disposition: Discharged to home or Selfcare 10/08/2024 1:40 PM CDT Office Visit [facility] - Family Medicine [facility] #2 [place] [address] Liz Capellan, DO [address] [address] 11/16/2024 1:00 PM CDT Office Visit [facility] - Pulmonology & Sleep Medicine [facility] #[address] [place] [address] Werner Swift MD [address] [place] [address] documented as of this encounter Visit Diagnoses Diagnosis Anxiety and depression Dysthymic disorder documented in this encounter Additional Health Concerns Infection Onset Date Last Indicated Resolved Time COVID - 19 01/25/2021 01/25/2021 01/31/2021 8:10 AM CDT Respiratory Rule Out - RPA 01/30/2021 01/30/2021 0 02/01/2021 12:45 AM CDT COVID - 19 07/23/2021 07/23/2021 07/24/2021 6:31 AM FORENSIC MATERIALS ENGINEER COVID - 19 10/19/2021 10/19/2021 10/20/2021 7:45 AM CDT Respiratory Rule Out - RPA 10/19/2021 10/19/2021 0 10/20/2021 2:10 PM CDT Stenotrophomonas maltophilia Comment:Must have a follow up respiratory sample to remove isolation flag. 10/20/2021 10/20/2021 COVID - 19 04/20/2022 04/20/2022 04/30/2022 12:1 8 AM FORENSIC MATERIALS ENGINEER COVID - 19 07/18/2022 07/18/2022 07/28/2022 12:1 6 AM FORENSIC MATERIALS ENGINEER COVID - 19 08/21/2022 08/21/2022 08/22/2022 8:31 AM CDT Respiratory Rule Out - RPA 08/21/2022 08/21/2022 0 08/22/2022 3:21 PM CDT COVID - 19 04/18/2023 04/18/2023 04/28/2023 12:1 6 AM FORENSIC MATERIALS ENGINEER COVID - 19 07/13/2023 07/13/2023 07/23/2023 12:1 6 AM FORENSIC MATERIALS ENGINEER Respiratory Rule Out - RPA 03/17/2024 03/17/2024 1 3:36 PM CDT COVID - 19 04/27/2024 04/27/2024 04/27/2024 2:19 PM FORENSIC MATERIALS ENGINEER Respiratory Rule-Out 07/24/2024 07/24/2024 025 2:29 PM FORENSIC MATERIALS ENGINEER COVID - 19 07/24/2024 07/24/2024 07/24/2024 2:29 PM FORENSIC MATERIALS ENGINEER Assessment Noted Time PHQ-9 Depression Total Score: 2 06/07/19 21 2:34 PM FORENSIC MATERIALS ENGINEER documented as of this encounter Care Teams Instructional Material Director Relationship Specialty Start Date End Date Keith Craft MD PCP - General Family Medicine 01/14/19 12/26/23 Liz Capellan DO [address] [address] PCP - General Family Medicine 12/27/23 Quang Locke DO Gastroenterology 01/18/16 Bri Rollins, RN [place] Core Driller 03/07/21 05/22/23 [place] [id number] [address] 05/25/21 Bri Rollins, RN [place] Nurse Core Driller 03/07/21 05/23/23 Werner Swift MD #2 [place] [address] Consulting Physician Pulmonary Disease 01/30/22 Yasmin Restrepo MD #[address] [address] Consulting Physician Endocrinology 07/20/24 documented as of this encounter
--- OUTSIDE RECORDS SUMMARY | 2024-08-16 19:30 | XMS_ITS | Encounter Summary ---
Author Organization [facility] Address [address] [place] [address] Phone Care Team Providers Care Client Care Consultant Name Role Phone Quang Locke DO Unavailable [phone] Keith Craft MD Primary Care Provider [phone] Bri Rollins RN Unavailable Unavailable Silvio Schulte MD Unavailable [phone] Bri Rollins RN Unavailable Unavailable Werner Swift MD Unavailable Liz Capellan DO Primary Care Provider [phone] Yasmin Restrepo MD Unavailable Reason for Visit * Reason Comments Medication Refill Encounter Details Date Type Department Care Team (Late st Contact Info) Description 12/25/2020 Refill [facility] Family [facility] #2 [place] [address] Keith Craft MD #1 [place] [address] Medication Refill Social History Tobacco Use Types [...] Date Type Provider Dept 01/04/21 Appointment Keith Craft, MD [facility] Showing future appointments within next 90 days and meeting all other requirements documented in this encounter Plan of Treatment Upcoming Encounters Date Type Department Care Team (Late st Contact Info) Description 08/27/2024 1:15 PM CDT Office Visit [facility] - Endocrinology [facility] #2 [place] [address] Yasmin Restrepo MD #[address] [address] 09/02/2024 2:00 PM CDT [facility] 1 [place] [address] Werner Swift MD #2 [place] [address] Discharge Disposition: Discharged to home or Selfcare 10/08/2024 1:40 PM CDT [facility] #2 [place] [address] Liz Capellan, DO [address] [place] [address] 11/16/2024 1:00 PM CDT Office Visit [facility] - Pulmonology & Sleep Medicine - [place] #[address] [place] [address] Werner Swift MD #2 [place] [address] documented as of this encounter Visit Diagnoses Diagnosis Anxiety and depression Dysthymic disorder documented in this encounter Additional Health Concerns Infection Onset Date Last Indicated Resolved Time COVID - 19 01/25/2021 01/25/2021 01/31/2021 8:10 AM CDT Respiratory Rule Out - RPA 01/30/2021 01/30/2021 0 02/01/2021 12:45 AM CDT COVID - 19 07/23/2021 07/23/2021 07/24/2021 6:31 AM LOT PORTER COVID - 19 10/19/2021 10/19/2021 10/20/2021 7:45 AM CDT Respiratory Rule Out - RPA 10/19/2021 10/19/2021 0 10/20/2021 2:10 PM CDT Stenotrophomonas maltophilia Comment:Must have a follow up respiratory sample to remove isolation flag. 10/20/2021 10/20/2021 COVID - 19 04/20/2022 04/20/2022 04/30/2022 12:1 8 AM LOT PORTER COVID - 19 07/18/2022 07/18/2022 07/28/2022 12:1 6 AM LOT PORTER COVID - 19 08/21/2022 08/21/2022 08/22/2022 8:31 AM CDT Respiratory Rule Out - RPA 08/21/2022 08/21/2022 0 08/22/2022 3:21 PM CDT COVID - 19 04/18/2023 04/18/2023 04/28/2023 12:1 6 AM LOT PORTER COVID - 19 07/13/2023 07/13/202307/23/2023 12:1 6 AM LOT PORTER Respiratory Rule Out - RPA 03/17/2024 03/17/2024 1 3:36 PM CDT COVID - 19 04/27/2024 04/27/2024 04/27/2024 2:19 PM LOT PORTER Respiratory Rule-Out 07/24/2024 07/24/2024 025 2:29 PM LOT PORTER COVID - 19 07/24/2024 07/24/2024 07/24/2024 2:29 PM LOT PORTER Assessment Noted Time PHQ-9 Depression Total Score: 2 06/07/19 2:34 PM LOT PORTER documented as of this encounter Care Teams Client Care Consultant Relationship Specialty Start Date End Date Keith Craft MD PCP - General Family Medicine 01/14/19 12/26/23 Liz Capellan DO [address] [address] PCP - General Family Medicine 12/27/23 Quang Locke DO Gastroenterology 01/18/16 Bri Rollins RN [place] Visual Communications Instructor 03/07/21 05/22/23 [place] [address] [address] 05/25/21 Bri Rollins RN [place] Nurse Visual Communications Instructor 03/07/21 05/23/23 Werner Swift MD #2 [place] [address] Consulting Physician Pulmonary Disease 01/30/22 Yasmin Restrepo MD #[address] [place] [address] [place] [address] Consulting Physician Endocrinology 07/20/24 documented as of this encounter
--- OUTSIDE RECORDS SUMMARY | 2024-08-16 19:30 | XMS_ITS | Encounter Summary ---
Author Organization [facility] Address [address] [place] [address] Phone Care Team Providers Care Mussel Farmer Name Role Phone Quang Locke DO Unavailable [phone] Keith Craft MD Primary Care Provider [phone] Bri Rollins RN Unavailable Unavailable Silvio Schulte MD Unavailable [phone] Bri Rollins RN Unavailable Unavailable Werner Swift MD Unavailable Liz Capellan DO Primary Care Provider [phone] Yasmin Restrepo MD Unavailable Reason for Visit * Reason Comments Medication Refill Encounter Details Date Type Department Care Team (Late st Contact Info) Description 03/23/2021 Refill [facility] - [facility] #2 [place] [address] Keith Craft MD #1 [place] [address] Medication Refill Social History Tobacco Use Types [...] [place] 02/03/21 Office Visit Brie Denis PAC [facility] 01/12/21 Office Visit Keith Craft MD [facility] 10/12/20 Office Visit Keith Craft MD [facility] 10/04/20 Office Visit Keith Craft MD [facility] [place] Showing recent visits within past 182 days and meeting all other requirements Today's Visits Date Type Provider Dept 03/23/21 Office Visit Keith Craft MD [facility] Showing today's visits and meeting all other requirements Future Appointments Date Type Provider Dept 04/14/21 Appointment Keith Craft MD [facility] Showing future appointments within next 90 days and meeting all other requirements Passed - Has an encounter in the past 6 months with a depression or anxiety visit diagnosis documented in this encounter Plan of Treatment Upcoming Encounters Date Type Department Care Team (Late st Contact Info) Description 08/27/2024 1:15 PM CDT Office Visit [facility] - Endocrinology - [place] #[address] [place] [phone] Yasmin Restrepo MD #[address] [address] 09/02/2024 2:00 PM CDT Appointment [facility] Respiratory Therapy [address] [place] [phone] Werner Swift MD #2 [place] [phone] Discharge Disposition: Discharged to home or Selfcare 10/08/2024 1:40 PM CDT Office Visit [facility] - Family Medicine - [place] #2 [place] [address] Liz Capellan, DO 2 [facility] [address] [place] [address] 11/16/2024 1:00 PM CDT Office Visit [facility] - Pulmonology & Sleep Medicine - [place] #2 [facility] [place] [address] Werner Swift MD #2 [place] [phone] documented as of this encounter Goals Goal [...] Zones/Action plan education. I will notify my Respiratory Scientist if my symptoms fall in the [...] - 19 07/23/2021 07/23/2021 07/24/2021 6:31 AM CLEAN UP SUPERVISOR COVID - 19 10/19/2021 10/19/2021 10/20/2021 7:45 AM CDT Respiratory Rule Out - RPA 10/19/2021 10/19/2021 0 10/20/2021 2:10 PM CDT Stenotrophomonas maltophilia Comment:Must have a follow up respiratory sample to remove isolation flag. 10/20/2021 10/20/2021 COVID - 19 04/20/2022 04/20/2022 04/30/2022 12:1 8 AM CLEAN UP SUPERVISOR COVID - 19 07/18/2022 07/18/2022 07/28/2022 12:1 6 AM CLEAN UP SUPERVISOR COVID - 19 08/21/2022 08/21/2022 08/22/2022 8:31 AM CDT Respiratory Rule Out - RPA 08/21/2022 08/21/2022 0 08/22/2022 3:21 PM CDT COVID - 19 04/18/2023 04/18/2023 04/28/2023 12:1 6 AM CLEAN UP SUPERVISOR COVID - 19 07/13/2023 07/13/2023 07/23/2023 12:1 6 AM CLEAN UP SUPERVISOR Respiratory Rule Out - RPA 03/17/2024 03/17/2024 1 3:36 PM CDT COVID - 19 04/27/2024 04/27/2024 04/27/2024 2:19 PM CLEAN UP SUPERVISOR Respiratory Rule-Out 07/24/2024 07/24/2024 025 2:29 PM CLEAN UP SUPERVISOR COVID - 19 07/24/2024 07/24/2024 07/24/2024 2:29 PM CLEAN UP SUPERVISOR Assessment Noted Time PHQ-9 Depression Total Score: 1 03/07/20 21 10:29 AM CDT documented as of this encounter Care Teams Mussel Farmer Relationship Specialty Start Date End Date Keith Craft MD PCP - General Family Medicine 01/14/19 12/26/23 Liz Capellan DO [address] [address] PCP - General Family Medicine 12/27/23 Quang Locke DO Gastroenterology 01/18/16 Bri Rollins RN [place] Respiratory Scientist 03/07/21 05/22/23 [place] [id number] [address] 05/25/21 Bri Rollins, RN [place] Nurse Respiratory Scientist 03/07/21 05/23/23 Werner Swift MD #2 [place] [phone] Consulting Physician Pulmonary Disease 01/30/22 Yasmin Restrepo MD #[address] [address] Consulting Physician Endocrinology 07/20/24 documented as of this encounter
--- OUTSIDE RECORDS SUMMARY | 2024-08-16 19:30 | XMS_ITS | Encounter Summary ---
Author Organization [facility] Address [address] [place] [address] Phone Care Team Providers Care Vacuum Tester Cans Name Role Phone Quang Locke DO Unavailable [phone] Keith Craft MD Primary Care Provider [phone] Bri Rollins RN Unavailable Unavailable Silvio Schulte MD Unavailable [phone] Bri Rollins RN Unavailable Unavailable Werner Swift MD Unavailable Liz Capellan DO Primary Care Provider [phone] Yasmin Restrepo MD Unavailable Reason for Visit * Reason Comments Medication Refill Encounter Details Date Type Department Care Team (Late st Contact Info) Description [facility] [address] [place] [address] Keith Craft MD [address] [place] [address] Medication Refill Social History Tobacco Use Types [...] Provider Dept 04/14/21 Appointment Keith Craft MD [facility] Showing future appointments within next 90 days and meeting all other requirements documented in this encounter Plan of Treatment Upcoming Encounters Date Type Department Care Team (Late st Contact Info) Description 08/27/2024 1:15 PM CDT Office Visit [facility] - Endocrinology - [place] #[address] [place] [address] Yasmin Restrepo MD #[address] [phone] 09/02/2024 2:00 PM CDT Appointment [facility] Respiratory Therapy 1 [place] [phone] Werner Swift MD #2 [place] [address] Discharge Disposition: Discharged to home or Selfcare 10/08/2024 1:40 PM CDT Office Visit [facility] Family Medicine - [place] #2 [place] [address] Liz Capellan, DO [address] [address] 11/16/2024 1:00 PM CDT Office Visit [facility] - Pulmonology & Sleep Medicine [facility] #2 [place] [address] Werner Swift MD [address] [place] [address] documented as of this encounter Visit Diagnoses Diagnosis Pulmonary emphysema, unspecified emphysema type (HCC) documented in this encounter Additional Health Concerns Infection Onset Date Last Indicated Resolved Time COVID - 19 07/23/2021 07/23/2021 07/24/2021 6:31 AM HAND TURNER COVID - 19 10/19/2021 10/19/2021 10/20/2021 7:45 AM CDT Respiratory Rule Out - RPA 10/19/2021 10/19/2021 0 10/20/2021 2:10 PM CDT Stenotrophomonas maltophilia Comment:Must have a follow up respiratory sample to remove isolation flag. 10/20/2021 10/20/2021 COVID - 19 04/20/2022 04/20/2022 04/30/2022 12:1 8 AM HAND TURNER COVID - 19 07/18/2022 07/18/2022 07/28/2022 12:1 6 AM HAND TURNER COVID - 19 08/21/2022 08/21/2022 08/22/2022 8:31 AM CDT Respiratory Rule Out - RPA 08/21/2022 08/21/2022 0 08/22/2022 3:21 PM CDT COVID - 19 04/18/2023 04/18/2023 04/28/2023 12:1 6 AM HAND TURNER COVID - 19 07/13/2023 07/13/2023 07/23/2023 12:1 6 AM HAND TURNER Respiratory Rule Out - RPA 03/17/2024 03/17/2024 1 3:36 PM CDT COVID - 19 04/27/2024 04/27/2024 04/27/2024 2:19 PM HAND TURNER Respiratory Rule-Out 07/24/2024 07/24/2024 025 2:29 PM HAND TURNER COVID - 19 07/24/2024 07/24/2024 07/24/2024 2:29 PM HAND TURNER Assessment Noted Time PHQ-9 Depression Total Score: 0 02/04/20 21 11:12 AM CDT documented as of this encounter Care Teams Vacuum Tester Cans Relationship Specialty Start Date End Date Keith Craft MD PCP - General Family Medicine 01/14/19 12/26/23 Liz Capellan DO 2 [facility] [address] [place], [place] [phone] PCP - General Family Medicine 12/27/23 Quang Locke DO Gastroenterology 01/18/16 Bri Rollins, [place] Assurance Senior Manager Insurance 03/07/21 05/22/23 [place] [address] [address] 05/25/21 Bri Rollins, [place] Nurse Assurance Senior Manager Insurance 03/07/21 05/23/23 Werner Swift MD #2 [place] [address] Consulting Physician Pulmonary Disease 01/30/22 Yasmin Restrepo MD #[address] [phone] Consulting Physician Endocrinology 07/20/24 documented as of this encounter
--- OUTSIDE RECORDS SUMMARY | 2024-08-16 19:30 | XMS_ITS | Encounter Summary ---
Author Organization [facility] Address [address] [place] [address] Phone Care Team Providers Care Organ Fixer Name Role Phone Quang Locke DO Unavailable [phone] Keith Craft MD Primary Care Provider [phone] Bri Rollins RN Unavailable Unavailable Silvio Schulte MD Unavailable Bri Rollins RN Unavailable Unavailable Werner Swift MD Unavailable Liz Capellan DO Primary Care Provider [phone] Yasmin Restrepo MD Unavailable Reason for Visit * Reason Comments Medication Refill Encounter Details Date Type Department Care Team (Late st Contact Info) Description 11/29/2020 Refill [facility] #2 [place] [address] Keith Craft MD #1 [place] [address] Medication Refill Social History Tobacco Use Types [...] Description 08/27/2024 1:15 PM CDT Office Visit [facility]2 [place] [phone] Yasmin Restrepo MD #[address] [phone] 09/02/2024 2:00 PM CDT [facility] 1 [place] [phone] Werner Swift MD #2 [place] [address] Discharge Disposition: Discharged to home or Selfcare 10/08/2024 1:40 PM CDT [facility] Visit [facility] - Family Medicine - [place] #2 [place] [address] Liz Capellan, DO [address] [address] 11/16/2024 1:00 PM CDT Office Visit [facility] - Pulmonology & Sleep Medicine - [place] #2 [place] [address] Werner Swift MD #2 [place] [address] documented as of this encounter Visit Diagnoses Diagnosis Anxiety and depression Dysthymic disorder documented in this encounter Additional Health Concerns Infection Onset Date Last Indicated Resolved Time COVID - 19 01/25/2021 01/25/2021 01/31/2021 8:10 AM CDT Respiratory Rule Out - RPA 01/30/2021 01/30/2021 0 02/01/2021 12:45 AM CDT COVID - 19 07/23/2021 07/23/2021 07/24/2021 6:31 AM CUT IN STATION OPERATOR COVID - 19 10/19/2021 10/19/2021 10/20/2021 7:45 AM CDT Respiratory Rule Out - RPA 10/19/2021 10/19/2021 0 10/20/2021 2:10 PM CDT Stenotrophomonas maltophilia Comment:Must have a follow up respiratory sample to remove isolation flag. 10/20/2021 10/20/2021 COVID - 19 04/20/2022 04/20/2022 04/30/2022 12:1 8 AM CUT IN STATION OPERATOR COVID - 19 07/18/2022 07/18/2022 07/28/2022 12:1 6 AM CUT IN STATION OPERATOR COVID - 19 08/21/2022 08/21/2022 08/22/2022 8:31 AM CDT Respiratory Rule Out - RPA 08/21/2022 08/21/2022 0 08/22/2022 3:21 PM CDT COVID - 19 04/18/2023 04/18/2023 04/28/2023 12:1 6 AM CUT IN STATION OPERATOR COVID - 19 07/13/2023 07/13/2023 07/23/2023 12:1 6 AM CUT IN STATION OPERATOR Respiratory Rule Out - RPA 03/17/2024 03/17/2024 1 3:36 PM CDT COVID - 19 04/27/2024 04/27/2024 04/27/2024 2:19 PM CUT IN STATION OPERATOR Respiratory Rule-Out 07/24/2024 07/24/2024 025 2:29 PM CUT IN STATION OPERATOR COVID - 19 07/24/2024 07/24/2024 07/24/2024 2:29 PM CUT IN STATION OPERATOR Assessment Noted Time PHQ-9 Depression Total Score: 2 06/07/19 2:34 PM CUT IN STATION OPERATOR documented as of this encounter Care Teams Organ Fixer Relationship Specialty Start Date End Date Keith Craft MD PCP - General Family Medicine 01/14/19 12/26/23 Liz Capellan DO [address] [address] PCP - General Family Medicine 12/27/23 Quang Locke DO Gastroenterology 01/18/16 Bri Rollins RN [place] State Historical Society Director 03/07/21 05/22/23 [place] [id number] [address] 05/25/21 Bri Rollins, RN [place] Nurse State Historical Society Director 03/07/21 05/23/23 Werner Swift MD [address] [place] [address] Consulting Physician Pulmonary Disease 01/30/22 Yasmin Restrepo MD [address] [address] Consulting Physician Endocrinology 07/20/24 documented as of this encounter
--- OUTSIDE RECORDS SUMMARY | 2024-08-16 19:30 | XMS_ITS | Clinical Summary ---
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 2 019 Active magnesium oxide (MAG-OX) 400 MG TabletIndication s:Coronary artery disease involving diomede coronary artery of diomede heart without angina pectoris Take 1 Tab by mouth 2 times daily. 5 019 Active Corlanor 5 MG Tablet Take 5 mg by mouth 2 times daily. 022 Active carvedilol (COREG) 3.125 MG Tablet Take 3.125 mg by mouth 2 times daily. 022 Active Kerendia 10 MG Tablet Take 2 Tablets by mouth daily. 023 Active Continuous Blood Gluc Transmit (Dexcom G6 Transmitter) MiscIndications: Type 2 diabetes mellitus with diabetic neuropathy, with long-term current use of insulin (HCC) USE DIRECTED TO MONITOR BLOOD SUGAR CONTINUOUSLY 24 HOURS a DAY DX:E11.40 1 Each 2 023 Active Continuous Blood Gluc Sensor (Dexcom G6 Sensor) MiscIndications: Type 2 diabetes mellitus with diabetic neuropathy, with long-term current use of insulin (HCC) USE TO MONITOR BLOOD SUGAR CONTINUOUSLY 24 HOURS a DAY DX:E11.40 3 Each 5 023 Active ferrous sulfate 325 (65 Fe) MG Tablet Take 325 mg by mouth daily. Active Cyanocobalamin (Vitamin B-12 CR) 1000 MCG Tablet Controlled Release Take 1,000 mcg by mouth daily. Active insulin pen needle (NovoFine Autocover Pen Needle) 30G X 8 MM Misc USE WITH INSULIN THREE (3) TIMES DAILY 300 Each 1 024 Active Daliresp 500 MCG Tablet TAKE ONE (1) TABLET BY MOUTH DAILY. 90 Tablet 3 024 Active fluticasone (FLONASE) 50 MCG/ACT Suspension TWO (2) SPRAYS BY NASAL ROUTE DAILY. 16 g 5 024 Active naloxone HCl (Narcan) 4 MG/0.1ML Liquid 1 [place] by Nasal route as needed for Opioid Reversal. Administer in one nostril for symptoms of overdose (severe sleepiness, breathing problems, not responsive). Call 911. May repeat 1 spray in alternate nostril in 2-3 minutes if needed. 1 Each 024 Active Vascepa 1 g Capsule Take 1 Capsule by mouth in the morning and at bedtime. 024 Active lansoprazole (PREVACID) 30 MG CAPSULE DELAYED RELEASEIndicatio ns:Gastroesophag eal reflux disease without esophagitis TAKE ONE (1) CAPSULE BY MOUTH DAILY. 90 Capsule 3 024 Active DULoxetine (CYMBALTA) [address] Particles TAKE ONE (1) CAPSULE BY MOUTH DAILY. TAKE WITH 30 MG CAPSULE 90 Capsule 1 024 Active ondansetron (Zofran) 4 MG TabletIndication s:Gastroparesis Take 1 Tablet by mouth every 8 hours as needed for Nausea - 1st line. 30 Tablet 1 Active rosuvastatin (CRESTOR) 20 MG Tablet TAKE ONE (1) TABLET BY MOUTH NIGHTLY. 90 Tablet 1 024 Active escitalopram (LEXAPRO) 20 MG Tablet TAKE 1 TABLET BY MOUTH DAILY. 90 Tablet 1 Active OXYGEN CONCENTRATOR 2 L/min by Nasal route if needed (shortness of breath). Active Lidocaine (HM Lidocaine Patch) 4 % Patch 1 Patch by Transdermal route every 24 hours. 30 Patch 11 Active Ascorbic Acid (Vitamin C) 1000 MG Tablet Take 1 Tablet by mouth daily. Active polyethylene glycol (GLYCOLAX, MIRALAX) 17 g PackIndications: Constipation Take 1 Packet by mouth 2 times daily as needed for Constipation - 1st line. Dissolve in 4-8 oz of liquid. Indications: Constipation 90 Packet Active spironolactone (ALDACTONE) 25 MG Tablet Take 0.5 Tablets by mouth daily. 90 Tablet 024 Active senna (SENOKOT) 8.6 MG Tablet Take 1 Tablet by mouth daily. 30 Tablet 024 Active sacubitril-valsa rtan (Entresto) 24-26 MG Tablet Take 0.5 Tablets by mouth 2 times daily for 180 days. 90 Tablet 1 024 10/27 Active predniSONE (DELTASONE) 10 MG Tablet Take 0.5 Tablets by mouth daily. 30 Tablet 5 024 Active guaiFENesin (Mucinex) 600 MG TABLET SR 12 HR Take 1 Tablet by mouth 2 times daily. 180 Tablet 3 024 Active valACYclovir (VALTREX) 500 MG Tablet TAKE ONE TABLET BY MOUTH EVERY DAY AT NIGHT 90 Tablet 2 Active albuterol (PROVENTIL, VENTOLIN) (2.5 MG/3ML) 0.083% Nebulizer SolnIndications: Pulmonary emphysema, unspecified emphysema type (HCC) USE ONE (1) VIAL THREE (3) ML BY NEBULIZATION ROUTE FOUR (4) TIMES DAILY NEEDED FOR WHEEZING OR SHORTNESS OF BREATH 1 mL 2 Active albuterol 108 (90 Base) MCG/ACT Aerosol SolutionIndicati ons:Pulmonary emphysema, unspecified emphysema type (HCC) USE TWO (2) PUFF(S) BY INHALATION ROUTE EVERY FOUR (4) HOURS NEEDED WHEEZING 18 g 025 Active levothyroxine (SYNTHROID) 50 MCG TabletIndication s:Acquired hypothyroidism TAKE ONE TABLET BY MOUTH DAILY 90 Tablet 2 025 Active gabapentin (NEURONTIN) 800 MG Tablet Take 1 Tablet by mouth 3 times daily. 90 Tablet 3 025 Active SUMAtriptan (IMITREX) 100 MG Tablet DIRECTED BY PHYSICIAN MAY REPEAT DOSE IF HEADACHE RECURS 9 Tablet 3 025 Active ergocalciferol (VITAMIN D) 25828 UNIT Capsule Take 1 Capsule by mouth once a week. 12 Capsule 025 Active amitriptyline (ELAVIL) 50 MG Tablet Take 1 Tablet by mouth nightly. 90 Tablet 025 Active insulin glargine (Basaglar KwikPen) 100 UNIT/ML Solution Pen-injectorIndi cations:Type 2 diabetes mellitus with diabetic neuropathy, with long-term current use of insulin (HCC) 15 Units by Subcutaneous route nightly. 15 mL 1 025 Active Dulaglutide (Trulicity) 1.5 MG/0.5ML Solution Auto-injector 1.5 mg by Subcutaneous route once a week. 6 mL 025 Active Empagliflozin (JARDIANCE) 10 MG Tablet Take 1 Tablet by mouth daily. 90 Tablet 1 025 Active famotidine (PEPCID) 20 MG TabletIndication s:Gastroesophage al Reflux Disease Take 2 Tablets by mouth 2 times daily. Indications: Gastroesophageal Reflux Disease 90 Tablet 025 Active theophylline (THEOCHRON) 400 MG TABLET SR 24 HRIndications:Pu lmonary emphysema, unspecified emphysema type (HCC) TAKE ONE (1) TABLET BY MOUTH DAILY. 90 Tablet 3 025 Active Fluticasone-Umec lidin-Vilant (Trelegy Ellipta) 100-62.5-25 MCG/ACT AEROSOL POWDER, BREATH ACTIVATED take 1 Puff by inhalation daily. 60 Each 025 Active diazePAM (VALIUM) 5 MG TabletIndication s:Anxiety and depression,Neuro dank Take 1 Tablet by mouth nightly as needed for Anxiety. 30 Tablet Active oxyCODONE-Acetam inophen (PERCOCET) 10-325 MG TabletIndication s:Anxiety and depression,Neuro dank Take 1 Tablet by mouth every 8 hours as needed for Severe pain. 90 Tablet Active Basaglar KwikPen 100 UNIT/ML Solution Pen-injectorIndi cations:Type 2 diabetes mellitus with diabetic neuropathy, with long-term current use of insulin ([facility]) INJECT 15 UNITS SUBCUTANEOUS DAILY 45 mL 4 024 07/20 Discontinued( Reorder) theophylline (THEOCHRON) 400 MG TABLET SR 24 HRIndications:Pu lmonary emphysema, unspecified emphysema type (HCC) TAKE ONE (1) CAPSULE BY MOUTH DAILY. 90 Tablet 3 024 08/04 Discontinued Trulicity 0.75 MG/0.5ML Solution Pen-injectorIndi cations:Type 2 diabetes mellitus with diabetic neuropathy, with long-term current use of insulin ([facility]) INJECT 0.5 ML(0.75MG) WEEKLY ON SATURDAY DIRECTED BY PHYSICIAN 6 mL 5 024 07/20 Discontinued( Dose adjustment) Tradjenta 5 MG Tablet TAKE ONE (1) TABLET BY MOUTH DAILY 90 Tablet 2 024 07/20 Discontinued( Med List Clean Up) Trelegy Ellipta 100-62.5-25 MCG/ACT AEROSOL POWDER, BREATH ACTIVATED TAKE ONE (1) PUFF BY INHALATION DAILY. 60 Each 3 024 08/03 Discontinued( Reorder) Empagliflozin (JARDIANCE) 10 MG Tablet Take 1 Tablet by mouth daily. 30 Tablet 2 025 07/20 Discontinued( Reorder) diazePAM (VALIUM) 5 MG TabletIndication s:Anxiety and depression,Neuro dank Take 1 Tablet by mouth nightly as needed for Anxiety. 30 Tablet 025 08/03 Discontinued( Reorder) oxyCODONE-Acetam inophen (PERCOCET) 10-325 MG TabletIndication s:Anxiety and depression,Neuro dank Take 1 Tablet by mouth every 8 hours as needed for Severe pain. 90 Tablet 025 08/03 Discontinued( Reorder) levoFLOXacin (LEVAQUIN) 750 MG Tablet Take 1 Tablet by mouth daily for 5 days. 5 Tablet 025 07/18 levoFLOXacin (LEVAQUIN) 500 MG Tablet Take 1.5 Tablets by mouth daily for 7 days. 7 Tablet 025 08/10 guaiFENesin-code ine (guaiFENesin AC) 100-10 MG/5ML SolutionIndicati ons:Other emphysema (HCC) Take 5 mL by mouth every 4 hours as needed for Cough for up to 7 days. 300 mL 025 08/10 Active Problems Patient Care Coordination No te Formatting of this note migh t be different from the original. Spring Coiler Hand's Impressions: Kary is a 70 y.o. female who was referred to care management for Complex care needs During this assessment, it was determined that the patient and this procedure writer will focus on the followin. COPD Management 2. CHF Weight Monitoring 3. Patient/Caregiver Support ACP: Power of Bale Coverer for Health Care (POA-HC): POA-HC form is [...] (10/05/2021): Added automatically from request for surgery [id number] Back pain 11/09/2019 Tricuspid valve insufficiency 11/09/2019 [...] Encounters Date Type Department Care Team Description 08/03/2024 1:15 PM CDT [facility] [address] [place] [address] Werner Swift MD Other emphysema (HCC) (Primary Dx); Multiple lung nodules on CT; Tobacco dependence syndrome Discharge Disposition: Discharged to home or Selfcare 08/03/2024 [facility] [place] [address] Liz Capellan, Medication Refill 08/03/2024 Travel 08/03/2024 [facility] [address] [facility] [place] [address] Marcin Anderson APRN, CNP Medication Refill 07/31/2024 1:00 PM EAP COUNSELOR Office Visit [facility] [address] [facility] [place] [address] Ana Vivar APRN, CNP Bronchitis (Primary Dx); Seasonal and perennial allergic rhinitis; Chronic obstructive pulmonary disease, unspecified COPD type (HCC); Gastroesophageal reflux disease with esophagitis without hemorrhage Discharge Disposition: Discharged to home or Selfcare 07/30/2024 Results Follow-Up [facility] Pulmonology & Sleep [facility] [address] [place] [address] Werner Swift MD Multiple lung nodules on CT (Primary Dx) 07/30/2024 Travel 07/25/2024 12:45 PM EAP COUNSELOR - 07/25/2024 11:59 PM EAP COUNSELOR Hospital Encounter [facility] [address] [place] [address] Liz Capellan, DO Discharge Disposition: Discharged to home or Selfcare 07/24/2024 1:45 PM EAP COUNSELOR Office Visit [facility] [address] [place] [address] Ana Vivar, REBECCA, OUTSIDE INDUSTRIAL SALES REPRESENTATIVE Bronchitis (Primary Dx); Congestion of upper airway; Lymphadenopathy; Chronic cough Discharge Disposition: Discharged to home or Selfcare 07/23/2024 Travel 07/21/[address] [address] Yasmin Restrepo MD Medication Refill 07/20/2024 2:15 PM EAP COUNSELOR Office Visit [facility] Endocrinology [facility] [address] [place] [address] Ana Vivar, REBECCA, OUTSIDE INDUSTRIAL SALES REPRESENTATIVE Yasmin Restrepo MD Type 2 diabetes mellitus with diabetic neuropathy, with long-term current use of insulin (HCC) (Primary Dx); Medication dose changed; Hypoglycemia Discharge Disposition: Discharged to home or Selfcare 07/20/2024 Travel 07/20/[address] [address] Keith Craft MD Medication Refill 07/15/2024 Telephone [facility] [address] [place] [address] Liz Capellan, 07/13/2024 1:30 PM EAP COUNSELOR Office Visit [facility] [address] [facility] [place] [address] Liz Capellan, DO Lymphadenopathy (Primary Dx); Abnormal CT of the chest; Coronary artery disease involving diomede coronary artery of diomede heart, unspecified whether angina present; Hypertriglyceridemia; Chronic combined systolic and diastolic heart failure (HCC); Type 2 diabetes mellitus with diabetic neuropathy, with long-term current use of insulin (HCC); Chronic obstructive pulmonary disease, unspecified COPD type (HCC); Hypothyroidism, unspecified type Discharge Disposition: Discharged to home or Selfcare 07/13/2024 Travel 07/09/2024 [facility] [address] [place] [address] Liz Capellan, DO Advice Only; Cough 07/08/2024 [facility] [address] [place] [address] Liz Capellan, DO Medication Refill 06/26/2024 12:43 PM EAP COUNSELOR - 06/26/2024 11:59 PM EAP COUNSELOR [facility] [address] [place] [address] Werner Swift MD Discharge Disposition: Discharged to home or Selfcare 06/25/2024 Travel 06/12/2024 [facility]ill [facility] [address] [place] [address] Liz Capellan, DO Medication Refill 06/10/2024 Refill [facility] [address] [place] [address] Keith Craft MD Medication Refill 06/09/2024 [facility] [place] [address] [place] [address] Lillian Tovar APRN, OUTSIDE INDUSTRIAL SALES REPRESENTATIVE Procedure 06/08/2024 [facility] [address] [place] [address] Liz Capellan, DO Medication Refill 06/05/2024 Refill [facility] [address] [place] [address] Marcin Anderosn APRN, JAKOB Medication Refill 06/05/2024 Refill [facility] [address] [place] [address] Werner Swift MD Medication Refill 05/29/2024 [facility] [address] [place] [address] Werner Swift MD 05/18/2024 11:00 AM EAP COUNSELOR [facility] [address] [place] [address] Grace Friedman, PT PT - OASIS DISCHARGE from Last 3 Months Immunizations Immunization Administration Dates Next Due Covid-19, Mrna, Lnp-s, PF, 1 00 mcg/0.5 mL Dose (Moderna) 07/30/2020,07/02/2020 Influenza Vaccine 03/10/2023,07/31/2017 Influenza Vaccine greater than 3 yrs 01/18/2021, 01/21/2020 Influenza, High-dose, Quadrivalent 01/18/2021 Influenza, Quadrivalent, Adjuvanted 02/05/2022 Influenza, Seasonal, Injecta ble, Undefined 01/21/2020 Influenza, high-dose, trivalent, PF 1012/2023,01/19/2020,02/03/2019,01/31,02/10/2016,02/01/2014 Pneumococcal Vaccine - 13 Valent 02/20/2018,070 05/2014 Pneumococcal Vaccine Adult - 23 Valent 9 Pneumococcal conjugate PCV20 , polysaccharide [id number] conjugate, adjuvant, PF 11/28/2022 RSV, Recombinant, Protein Link bunit Rsvpref, Adjuvant Recon (Arexvy) 03/22/2023 TB Skin Test 06/25/2016, 7,06/18/2016,06/16 TDAP Vaccine 01/31/2010 Zoster Vaccine Recombinant 02/03/2019,02/19/2018 Family History Medical History Relation Name Comments Asthma Daughter Heart Disease Father Congestive Heart Failure Mother Mom Diabetes Mother Mom Heart Disease Mother Mom Skin Cancer Mother Mom Thyroid Disease Mother Mom Breast Cancer Other Mat. Cousin Relation Name Status Comments Daughter Father Mother Mom Other Mat. Cousin Alive Social History Tobacco Use Types Packs/Day Years Used Date Smoking Tobacco: Former Cigarettes 2 50 1 - 03/16/2018 Smokeless Tobacco: Never Tobacco Cessation:Counseling Given: No Comments:Still uses nictoine patches and gum Alcohol Use Standard Drinks/Week Comments No 0 (1 standard drink = 0.6 oz pur e alcohol) [facility] Utilities Answer Date Recorded In [...] often do you attend chur ch or episcopal services? Patient declined 07/23/2024 Do you belong to any clubs o r organizations such as hoahaoism groups, unions, fraternal or athletic groups, or [...] 06/27 [facility] of Occupat affinity health partnersal Health - Occupational Stress Questionnaire Answer Date [...] any time in the past [address] [facility], were you homeless or living in a longterm (including now)? No 07/23/2024 Education Answer Date [...] Sign Reading Time Taken Comments Blood Pressure 120/70 08/03/2024 1:33 PM CDT Pulse 61 08/03/2024 1:33 PM CDT Temperature 36.2 C (97.2 F) 08/03/2024 1:33 PM CDT Respiratory Rate 14 08/03/2024 1:33 PM CDT Oxygen Saturation 96% 08/03/2024 1:33 PM CDT Inhaled Oxygen Concentration - - Weight 59.2 kg (130 lb 9.6 oz) 08/03/2024 1:33 P M CDT Height 157.5 cm (5' 2 ) 08/03/2024 1:33 PM CDT Body Mass Index 23.89 08/03/2024 1:33 PM CDT Plan of Treatment Upcoming Encounters Date Type Department Care Team (Late st Contact Info) Description 08/27/2024 1:15 PM CDT [facility] Visit [facility] Endocrin[facility] [address] [place] [phone] Yasmin Restrepo MD [address] [phone] 09/02/2024 2:00 PM CDT Appointment [facility] Res[facility] Therapy [address] [place] [phone] Werner Swift MD [address] [place] [phone] Discharge Disposition: Discharged to home or Selfcare 10/08/2024 1:40 PM CDT Office Visit [facility] - Family Medicine - [place] [address] [place] [address] Liz Capellan, DO 2 [facility] [place] [facility] [address] [place] [address] 11/16/2024 1:00 PM CDT Office Visit [facility] - Pulmonology & Sleep Medicine - [place] [address] [place] [address] Werner Swift MD [address] [place] [address] Health Maintenance Due Date Last Done Comments Cologuard 09/19/1999 Diabetes: Eye Exam 03/02/2023 03/02/2022 Mammogram 02/27/2024 02/26/2023, 07/0 09/2021, 11/02/2020, Additional history exists DEXA Bone Density 04/03/2024 04/03/2022 Immunochemical Fecal Occult Blood 06/02/2024 06/02/2023 SARS-COV-2 Immunization ( season) 2024 03/03/2024, 02/24/2023, 11/21/2022, Additional history exists Discussion re Stopping Mammograms 2024 Diabetes: Hemoglobin A1c 01/17/20252 025, 03/17/2024, 01/01/2024, Additional history exists Diabetes: Nephropathy Screening 06/12/2025 06/12/2024, 04/27/2024, 03/19/2024, Additional history exists Diabetes: Foot Exam 07/20/2025 07/20/2024, 01/08/2024, 12/31/2023, Additional history exists Lung Cancer Screening 07/25/2025 07/25/2024 , 03/17/2024, 02/21/2024, Additional history exists Colonoscopy 01/08/2026 01/09/2016 Colorectal [...] Zones/Action plan education. I will notify my Spring Coiler Hand if my symptoms fall in the y ellow zone . I will consider receiving an influenza and pneumonia vaccination, if applicable. -I will call the office if I experience any symptoms listed above to discuss at home management options. Medical Devices Implanted Type Area Semiconductor Engineer Device Identifier Shelf Expiration Date Model / Serial / Lot Nail Im Gamma3 Long 11mm 1.5mm 180mm 125deg Angled Lock Lt Femoral Titanium Strl - [id number] Implanted:Qty: 1 on 05/29/2023 by Rocael Solano MD at [facility] IMPLANT Left: Femur Rosemary [employer] 12/25/2027 3125-1 180 S / [id number] / [id number] Screw Bone T10 Full Thread 3.5mm/28mm - [id number] Implanted:Qty: 1 on 05/29/2023 by [facility] at [facility] IMPLANT Left: Humerus [employer] 06/26/2023 [id number] / [id number] / N/A Screw Bone T10 Full Thread 3.5mm/34mm - [id number] Implanted:Qty: 1 on 05/29/2023 by Rocael Solano MD at [facility] IMPLANT Left: Humerus [employer] 06/26/2023 [id number] / [id number] / N/A Screw Bone T10 Full Thread 3.5mm/55mm - [id number] Implanted:Qty: 1 on 05/29/2023 by Rocael Solano MD at [facility] IMPLANT Left: Humerus [employer] 06/26/2023 [id number] / [id number] / N/A Screw Locking T10 Full Thread 3.5mm/16mm - [id number] Implanted:Qty: 1 on 05/29/2023 by Rocael Solano MD at [facility] IMPLANT Left: Humerus [employer] 06/26/2023 [id number] / [id number] / N/A Screw Locking T10 Full Thread 3.5mm/18mm - [id number] Implanted:Qty: 1 on 05/29/2023 by Rocael Solano MD at [facility] IMPLANT Left: Humerus [employer] 06/26/2023 [id number] / [id number] / N/A Screw Locking T10 Full Thread 3.5mm/22mm - [id number] Implanted:Qty: 4 on 05/29/2023 by Rocael Solano MD at [facility] IMPLANT Left: Humerus [employer] 06/26/2023 [id number] / [id number] / N/A Screw Locking T10 Full Thread 3.5mm/26mm - [id number] Implanted:Qty: 1 on 05/29/2023 by Rocael Solano MD at [facility] IMPLANT Left: Humerus [employer] 06/26/2023 [id number] / [id number] / N/A Screw Locking T10 Full Thread 3.5mm/30mm - [id number] Implanted:Qty: 2 on 05/29/2023 by Rocael Solano MD at [facility] IMPLANT Left: Humerus [employer] 06/26/2023 [id number] / [id number] / N/A Screw Bone 10.5mm 80mm Gamma3 Ti Hip Trochanter Lag Strl Long Nail - [id number] Implanted:Qty: 1 on 05/29/2023 by Rocael Solano MD at [facility] IMPLANT Left: Femur [employer] 09/24/2027 3060-0 080 S / [id number] / [id number] Screw Bone 5mm 32.5mm T2 Ti Fthrd Femur Hum Tibia Prox Lock Strl Im Nail Sys - [id number] Implanted:Qty: 1 on 05/29/2023 by Rocael Solano MD at [facility] IMPLANT Left: Femur [employer] 12/24/2026 [id number] S / [id number] / [id number] Screw Locking T10 Full Thread 3.5mm/36mm - [id number] Implanted:Qty: 1 on 05/29/2023 by Rocael Solano MD at [facility] IMPLANT Left: Humerus [employer] 06/26/2023 [id number] / [id number] / N/A Screw Locking T10 Full Thread 3.5mm/55mm - [id number] Implanted:Qty: 1 on 05/29/2023 by Rocael Solano MD at [facility] IMPLANT Left: Humerus [employer] 06/26/2023 [id number] / [id number] / N/A Plate 89mm Ti 4 Shaft Hole Lock Variax Bone Elbow Left Olecranon Ns - [id number] Implanted:Qty: 1 on 05/29/2023 by Rocael oSlano MD at [facility] IMPLANT Left: Humerus [employer] 06/26/2023 [id number] / [id number] / N/A Screw Bone T10 Full Thread 3.5mm/18mm - [id number] Implanted:Qty: 1 on 05/29/2023 by Rocael Solano MD at [facility] IMPLANT Left: Humerus [employer] 06/26/2023 [id number] / [id number] / N/A Screw Bone T10 Full Thread 3.5mm/22mm - [id number] Implanted:Qty: 1 on 05/29/2023 by Rocael Solano MD at [facility] IMPLANT Left: Humerus [employer] 06/26/2023 [id number] / [id number] / N/A Screw Bone T10 Full Thread 3.5mm/26mm - [id number] Implanted:Qty: 2 on 05/29/2023 by Rocael Solano MD at [facility] IMPLANT Left: Humerus [employer] 06/26/2023 [id number] / [id number] / N/A 3.5mm X 60mm Locking Screw Implanted:Qty: 1 on 05/29/2023 by Rocael Solano MD at [facility] Left: Humerus ROSEMARY 06/26/2023 [id number] / [id number] / N/A 2.7mm X 18mm Non Locking Screw Implanted:Qty: 1 on 05/29/2023 by Rocael Solano MD at [facility] Left: Humerus ROSEMARY 06/26/2023 [id number] / [id number] / N/A Left Distal Lateral Humerus Plate 2 Hole Implanted:Qty: 1 on 05/29/2023 by Rocael Solano MD at [facility] Left: Humerus ROSEMARY 06/26/2023 [id number] / [id number] / N/A Distal Medial Humerus Plate 3 Hole Implanted:Qty: 1 on 05/29/2023 by Rocael Solano MD at [facility] Left: Humerus ROSEMARY 06/26/2023 [id number] / [id number] / N/A 3.5mm X 20mm Implanted:Qty: 1 on 05/29/2023 by Rocael Solano MD at [facility] Left: Humerus ROSEMARY 06/26/2023 [id number] / [id number] / N/A Procedures Procedure Name Priority Date/Time Associated Diagnosis Comments CT CHEST W/O CONTRAST Routine 07/25/2024 12:53 PM EAP COUNSELOR Lymphadenopathy Abnormal CT of the chest POC SARS-COV-2 BY MOLECULAR Routine 07/24/2024 2:25 AM EAP COUNSELOR Congestion of upper airway POC INFLUENZA A AND B BY MOLECULAR Routine 07/24/2024 2:11 AM EAP COUNSELOR Congestion of upper airway POCT GLYCOSYLATED HEMOGLOBIN Routine 07/20/2024 2:06 PM EAP COUNSELOR Type 2 diabetes mellitus with diabetic neuropathy, with long-term current use of insulin (HCC) XR CHEST 2 VIEWS Routine 06/26/2024 1:01 PM EAP COUNSELOR Subacute cough CARDIOLOGY PROCEDURE 06/15/2024 12:00 AM EAP COUNSELOR PROTIME (PT) (PROTHROMBIN TIME) 06/12/2024 12:00 AM EAP COUNSELOR COMPLETE BLOOD COUNT (CBC) WITH DIFF Routine 06/12/2024 12:00 AM EAP COUNSELOR Pneumonia of right lung due to infectious organism, unspecified part of lung URINALYSIS (UA) RANDOM 12:00 AM EAP COUNSELOR CMP (COMPREHENSIVE METABOLIC PANEL) 06/12/2024 12:00 AM EAP COUNSELOR PODIATRY CONSULT 01/08/2024 12:0 0 AM CDT STOOL, OCCULT BLOOD, DIAGNOSTIC, VIA GUAIAC STAT 06/02/2023 5:05 PM EAP COUNSELOR RADHA SCREENING BILATERAL DIGITAL W CAD W CLARI Routine 02/26/2023 1:23 PM CDT Visit for screening mammogram HEPATITIS C ANTIBODY Routine 12/17/2022 11:39 AM CDT Need for hepatitis C screening test [facility] BONE DENSITOMETRY AXIAL SKELETON Routine 04/03/2022 9:46 AM EAP COUNSELOR Postmenopausal DIABETIC BILATERAL RETINAL IMAGING WITH COMPUTERIZED INTERPRETATION Routine 03/02/2022 10:32 AM CDT Type 2 diabetes mellitus with diabetic neuropathy, with long-term current use of insulin (HCC) from Last 3 Months or Most Recently Relevant to Health Maintenance Results * CT CHEST W/O CONTRAST (07/25/2024 12:53 PM EAP COUNSELOR) Anatomical Region Laterality Modality Chest N/A Computed Tomogra phy 07/29/2024 9:10 AM EAP COUNSELOR Impressions 07/29/2024 9:13 AM EAP COUNSELOR IMPRESSION: Mild emphysematous changes with mild generalized peribronchial thickening and bronchiectasis, stable. Mild diffuse bilateral interstitial prominence, especially peripherally, stable and probably fibrotic in origin. Previously identified ground-glass opacities in right lung, especially right upper lobe, on the prior study have nearly completely resolved. Some very faint tree-in-bud type opacities remain, predominantly in the lateral right upper lobe. New 5 mm nodule medial left upper lobe. Six-month follow-up noncontrast CT chest recommended. No new focal consolidative infiltrates or effusions. A few small noncalcified mediastinal lymph nodes are decreased in size from the prior study. Mild fluid-filled distention of the esophagus with probable small hiatal hernia. Multiple lower thoracic and upper lumbar vertebral compression fractures, unchanged. Multiple old bilateral rib fractures. Diffuse osteopenia. Narrative 07/29/2024 9:13 AM EAP COUNSELOR EXAM DESCRIPTION: CT CHEST W/O CONTRAST REASON FOR STUDY: c/o chronic cough x 2-3 months. prior CTA on 04/27/24 noted opacities in RT lung recommending 3 month f/u TECHNIQUE: CT scan of the chest performed without intravenous contrast using helical scanning technique. Reconstructed coronal and sagittal MPR images reviewed. All images stored on PACS. Automated exposure control was used as a dose optimization technique for this examination. COMPARISON: April 27, 2024 FINDINGS: The sensitivity for detection of solid visceral lesions is diminished without the use of intravenous contrast. LUNGS: Mild emphysematous changes with mild generalized peribronchial thickening and bronchiectasis, stable. Mild diffuse bilateral interstitial prominence, especially peripherally, stable and probably fibrotic in origin. The ground-glass opacities identified in the right lung, especially right upper lobe, on the prior study have nearly completely resolved. Some very faint tree-in-bud type opacities remain, predominantly in the lateral right upper lobe. There is a new 5 mm nodule in the medial left upper lobe (transverse image 24). No new focal consolidative infiltrates. PLEURA: No effusion. No pneumothorax. MEDIASTINUM/MARIO: A few small noncalcified mediastinal lymph nodes are decreased in size from the prior study. There is mild fluid-filled distention of the esophagus with probable small hiatal hernia. HEART: Heart size is normal with no pericardial effusion. CORONARY ARTERY CALCIFICATION: Present VASCULATURE: Atherosclerotic changes but no thoracic aortic aneurysm. AXILLA: No adenopathy. CHEST WALL: No masses. No subcutaneous air. HARDWARE/LINES/TUBES: Unchanged pacemaker/defibrillator. UPPER ABDOMEN: No significant abnormality. MUSCULOSKELETAL: Multiple lower thoracic and upper lumbar vertebral compression fractures, unchanged. Multiple old bilateral rib fractures. Diffuse osteopenia. OTHER: No other significant abnormality. THIS IS AN ELECTRONICALLY VERIFIED FINAL REPORT 07/29/2024 9:10 AM - Electronically signed by Jimi Barrera M.D. RB: YOSVAYN Report ID: [id number] Reading Location: [id number] Procedure Note Jimi Barrera MD - 07/29/2024 EXAM DESCRIPTION: CT CHEST W/O CONTRAST REASON FOR STUDY: c/o chronic cough x 2-3 months. prior CTA on 04/27/24 noted opacities in RT lung recommending 3 month f/u TECHNIQUE: CT scan of the chest performed without intravenous contrast using helical scanning technique. Reconstructed coronal and sagittal MPR images reviewed. All images stored on PACS. Automated exposure control was used as a dose optimization technique for this examination. COMPARISON: April 27, 2024 FINDINGS: The sensitivity for detection of solid visceral lesions is diminished without the use of intravenous contrast. LUNGS: Mild emphysematous changes with mild generalized peribronchial thickening and bronchiectasis, stable. Mild diffuse bilateral interstitial prominence, especially peripherally, stable and probably fibrotic in origin. The ground-glass opacities identified in the right lung, especially right upper lobe, on the prior study have nearly completely resolved. Some very faint tree-in-bud type opacities remain, predominantly in the lateral right upper lobe. There is a new 5 mm nodule in the medial left upper lobe (transverse image 24). No new focal consolidative infiltrates. PLEURA: No effusion. No pneumothorax. MEDIASTINUM/MARIO: A few small noncalcified mediastinal lymph nodes are decreased in size from the prior study. There is mild fluid-filled distention of the esophagus with probable small hiatal hernia. HEART: Heart size is normal with no pericardial effusion. CORONARY ARTERY CALCIFICATION: Present VASCULATURE: Atherosclerotic changes but no thoracic aortic aneurysm. AXILLA: No adenopathy. CHEST WALL: No masses. No subcutaneous air. HARDWARE/LINES/TUBES: Unchanged pacemaker/defibrillator. UPPER ABDOMEN: No significant abnormality. MUSCULOSKELETAL: Multiple lower thoracic and upper lumbar vertebral compression fractures, unchanged. Multiple old bilateral rib fractures. Diffuse osteopenia. OTHER: No other significant abnormality. THIS IS AN ELECTRONICALLY VERIFIED FINAL REPORT 07/29/2024 9:10 AM - Electronically signed by Jimi Barrera M.D. RB: YOSVANY Report ID: [id number] Reading Location: [id number] IMPRESSION: Mild emphysematous changes with mild generalized peribronchial thickening and bronchiectasis, stable. Mild diffuse bilateral interstitial prominence, especially peripherally, stable and probably fibrotic in origin. Previously identified ground-glass opacities in right lung, especially right upper lobe, on the prior study have nearly completely resolved. Some very faint tree-in-bud type opacities remain, predominantly in the lateral right upper lobe. New 5 mm nodule medial left upper lobe. Six-month follow-up noncontrast CT chest recommended. No new focal consolidative infiltrates or effusions. A few small noncalcified mediastinal lymph nodes are decreased in size from the prior study. Mild fluid-filled distention of the esophagus with probable small hiatal hernia. Multiple lower thoracic and upper lumbar vertebral compression fractures, unchanged. Multiple old bilateral rib fractures. Diffuse osteopenia. Result [facility] Liz Jamilah Capellan DO IMG CT ORDERABLES Final Resul t * POC SARS-COV-2 BY MOLECULAR (07/24/2024 2:25 AM EAP COUNSELOR) SARSCOV2 Negative Negative, INVALID PROCEDURE CONTROL Valid 07/24/2024 2:25 AM EAP COUNSELOR August N Ghazala REEVESN, OUTSIDE INDUSTRIAL SALES REPRESENTATIVE POINT OF CARE TESTING ([facility]) Final Result * POC INFLUENZA A AND B BY MOLECULAR (07/24/2024 2:11 AM EAP COUNSELOR) INFLUENZA A RNA Negative Negative, Invalid INFLUENZA B RNA Negative Negative, Invalid PROCEDURE CONTROL Valid 07/24/2024 2:11 AM EAP COUNSELOR August N Ghazala ANVIL SEATING PRESS OPERATOR, OUTSIDE INDUSTRIAL SALES REPRESENTATIVE POINT OF CARE TESTING ([facility]) Final Result * (ABNORMAL) POCT GLYCOSYLATED HEMOGLOBIN (07/20/2024 2:06 PM EAP COUNSELOR) HGB-A1C 7.1(A) 4 - 6 % Blood 07/20/2024 2:06 PM EAP COUNSELOR Result [facility] Yasmin Restrepo MD POINT OF CARE TESTING (MANUAL) F inal Result * XR CHEST 2 VIEWS (06/26/2024 1:01 PM EAP COUNSELOR) Anatomical Region Laterality Modality Chest N/A Digital Radiogra phy 06/29/2024 3:53 PM EAP COUNSELOR Impressions 06/29/2024 3:55 PM EAP COUNSELOR IMPRESSION: No acute pulmonary process. Narrative 06/29/2024 3:55 PM EAP COUNSELOR EXAM DESCRIPTION: XR CHEST 2 VIEWS REASON [...] Drew Sullivan M.D. MM: MM Report ID: [id number] Reading Location: [place] [address] Procedure Note Drew Sullivan MD - 06/29/2024 [...] Drew Sullivan M.D. MM: MM Report ID: [id number] Reading Location: [id number] IMPRESSION: No acute pulmonary process. Werner Swift MD IMG DIAGNOSTIC ORDERABLES Final Result * CARDIOLOGY PROCEDURE (06/15/2024 12:00 AM EAP COUNSELOR) Anatomical Region Laterality Modality Other 06/15/2024 us Provider Scan CV PROCEDURES SCHED Final Result * URINALYSIS (UA) RANDOM (06/12/2024 12:00 AM EAP COUNSELOR) 06/12/2024 us Provider Scan URINE ORDERABLES Final Result Performing Organization Address [facility] de Phone Number SCAN * PROTIME (PT) (PROTHROMBIN TIME) (06/12/2024 12:00 AM EAP COUNSELOR) INR 1.0 SCAN 06/12/2024 us Provider Scan HEMATOLOGY ORDERABLES Final Resu lt Performing Organization Address [facility] Co de Phone Number SCAN * CMP (COMPREHENSIVE METABOLIC PANEL) (06/12/2024 12:00 AM EAP COUNSELOR) 06/12/2024 us Provider Scan CHEMISTRY ORDERABLES Final Resul t Performing Organization Address [facility] de Phone Number SCAN * CBC with Diff (06/12/2024 12:00 AM EAP COUNSELOR) Blood us Laurent Kumar MD HEMATOLOGY ORDERABLES Fi nal Result Performing Organization Address [facility] Co de Phone Number SCAN * PODIATRY CONSULT (01/08/2024 12:00 AM CDT) 01/08/2024 us Keith Craft MD GENERIC SCAN ORDERS CONSULT Loren l Result SCAN * Stool, Occult Blood, Diagnostic, via Guaiac (06/02/2023 5:05 PM EAP COUNSELOR) OCCULT BLOOD DIAG, GI BLEED Negative Negative 06/02/2023 5:23 PM EAP COUNSELOR [facility] Stool STOOL SPECIMEN / Unknown Non-Phlebotomy Collection / Unknown 06/02/2023 5:05 PM EAP COUNSELOR 06/02/2023 5:08 PM EAP COUNSELOR us Maggie Molina MD BODY FLUIDS & STOOLS ORDERABL ES Final Result [facility] [address] [place] [address] * RADHA SCREENING BILATERAL DIGITAL W CAD [...] dated: 11/28/2021, 09/21/2021, 11/30/2020, 11/02/2020, and 08/05/2018 [facility]. BREAST TISSUE:The tissue of both breasts [...] signed by: Cris Sosa M.D. ll/:02/26/2023 19:37:54 Blocker And Sewer(s): RT Jaun(R)(M), [facility] letter sent: Normal Exam Reading location: [place] BI-RADS: 2 Benign Procedure Note Cris Sosa MD - 02/27/2023 - RADHA SCREENING BILATERAL DIGITAL W CAD W CLARI BILATERAL DIGITAL SCREENING MAMMOGRAM 3D/2D WITH CAD WITH CLEAVAGE MEDIOLATERAL OBLIQUE CRANIOCAUDAL: 02/26/2023 The study was acquired using digital technology and interpreted from soft copy. Current study was also evaluated with C3 EnergyD version 7.2. 2D digital mammographic views, as well as 3D digital tomosynthesis were performed in the CC and MLO projections. CLINICAL: Routine screening. Patient has no complaints. No personal history of cancer. Maternal cousin had breast cancer. COMPARISONS: Comparison is made to exams dated: 11/28/2021, 09/21/2021, 11/30/2020, 11/02/2020, and 08/05/2018 [facility]. BREAST TISSUE:The tissue of both breasts [...] signed by: Cris Sosa M.D. ll/:02/26/2023 19:37:54 Blocker And Sewer(s): RT Jaun(R)(M), [facility] letter sent: Normal Exam Reading location: [place] BI-RADS: 2 Benign Keith Craft MD IMG MAMMO ORDERABLES Final Resul t * HEPATITIS C ANTIBODY (12/17/2022 11:39 AM CDT) hepatitis C antibody 0.06 <1 S/CO [facility] ARCH [id number] B 12/17/2022 11:37 PM CDT [facility] Comment: Signal/Cutoff ratio < 0.79 is Nondetected Signal/Cutoff ratio 0.80-0.99 is Grayzone Signal/Cutoff ratio > 0.99 is Detected Supplemental assays are recommended if signal/cutoff ratio is >/=1.00. Signal/cutoff ratio result >/= 5.00 is 97% predictive of positivity for recombinant immunoblot assay (RIBA) and will be reported to the [place] Department of Public Health as required. Blood Venipuncture / Unknown 12/17/2022 11:39 AM CDT 12/17/2022 11:39 AM CDT Keith Craft MD CHEMISTRY ORDERABLES Final Resul t [facility] [address] [place] [address], [place] * [facility] BONE DENSITOMETRY AXIAL SKELETON (04/03/2022 9:46 AM EAP COUNSELOR) Anatomical Region Laterality Modality BODY N/A Computed Radiogr aphy 04/03/2022 3:04 PM EAP COUNSELOR Impressions 04/03/2022 3:06 PM EAP COUNSELOR IMPRESSION: According to the World Health Organization [...] of Osteoporosis (http://www.nof.org/professionals/clinical-guidelines) Narrative 04/03/2022 3:06 PM EAP COUNSELOR EXAM DESCRIPTION: [facility] BONE DENSITOMETRY AXIAL SKELETON REASON FOR STUDY: 71 y/o year old F . Screening Semiconductor Engineer/Model: [employer] (S/N [id number]) COMPARISON: 09/04/2011 FINDINGS: LEFT FEMORAL NECK: T-score [...] by Filipe Anaya M.D. JR: Report ID: [id number] Reading Location: [id number] Procedure Note Filipe Anaya MD - 04/03/2022 EXAM DESCRIPTION: [facility] BONE DENSITOMETRY AXIAL SKELETON REASON FOR STUDY: 71 y/o year old F . Screening Semiconductor Engineer/Model: [employer] (S/N [id number]) COMPARISON: 09/04/2011 FINDINGS: LEFT FEMORAL NECK: T-score [...] by Filipe Anaya M.D. JR: Report ID: [id number] Reading Location: [place] [id number] IMPRESSION: According to the World Health Organization [...] of Osteoporosis (http://www.nof.org/professionals/clinical-guidelines) us Keith Craft MD [employer] DEXA ORDERABLES Final Result * DIABETIC BILATERAL [...] exam. Other 03/02/2022 10:3 2 AM CDT us Keith Craft MD OUTPT PROCEDURE ORDERABLES Final Result EXTERNAL EKG DIGITAL DIAGNOSTICS from Last 3 Months or Most Recently Relevant to Health Maintenance Additional Health Concerns Infection Onset Date Last Indicated Stenotrophomonas maltophilia Comment:Must have a follow up respiratory sample to remove isolation flag. 10/20/2021 10/20/2021 Insurance [facility]IC[facility] Advance Directives Documents on File Type Date Recorded Patient Hr Generalist Expl anation Advance Care Planning Discussion 09/19/2022 [...] measures to stabilize the patient. Care Teams Off Track Betting Manager Relationship Specialty Start Date End Date Liz Capellan DO 2 [facility] [address] [place] [address] PCP - General Family Medicine 12/27/23 Quang Locke DO Gastroenterology 01/18/16 [place] [id number] [address] 05/25/21 Werner Swift MD [address] [place] [phone] Consulting Physician Pulmonary Disease 01/30/22 Yasmin Restrepo MD [address] [facility] [address] [place] [address] Consulting Physician Endocrinology 07/20/24
--- OUTSIDE RECORDS SUMMARY | 2024-08-16 19:30 | XMS_ITS | Encounter Summary ---
Author Organization [facility] Address [address] [place] [address] Phone Care Team Providers Care Manufacturing Industrial Engineer Name Role Phone Quang Locke DO Unavailable [phone] Keith Craft MD Primary Care Provider [phone] Bri Rollins RN Unavailable Unavailable Silvio Schulte MD Unavailable Bri Rollins RN Unavailable Unavailable Werner Swift MD Unavailable Liz Capellan DO Primary Care Provider [phone] Yasmin Restrepo MD Unavailable Reason for Visit * Reason Comments Medication Refill Encounter Details Date Type Department Care Team (Late st Contact Info) Description 03/08/2022 Refill [facility] - Family Medicine [facility] [address] [place] [address] Keith Craft MD [address] [place] [address] Medication Refill Social History Tobacco Use Types [...] Procedure Visit [facility] 03/02/22 Office Visit Keith Craft MD [facility] 11/03/21 Office Visit Keith Craft MD [facility] 10/19/21 Office Visit Keith Craft MD [facility] 10/05/21 Office Visit Keith Craft MD [facility] 09/08/21 Office Visit Brie Denis, PAC [facility] 08/14/21 Office Visit Keith Craft MD [facility] Z[facility]a 07/31/21 Office Visit Keith Craft MD [facility] 05/25/21 Office Visit Marcin Anderson, EP TECHNOLOGIST, HOTEL DESK CLERK [facility] 05/05/21 Office Visit Brie Denis PAC [facility] Showing recent visits within past 365 days and meeting all other requirements Future Appointments Date Type Provider Dept 06/04/22 Appointment Keith Craft MD [facility] Showing future appointments within next 90 days and meeting all other requirements documented in this encounter Plan of Treatment Upcoming Encounters Date Type Department Care Team (Late st Contact Info) Description 08/27/2024 1:15 PM CDT Office Visit [facility] - Endocrinology - [place] [address] [place] [phone] Yasmin Restrepo MD [address] [phone] 09/02/2024 2:00 PM CDT Appointment [facility] Respiratory Therapy [address] [place] [phone] Werner Swift MD [address] [place] [address] Discharge Disposition: Discharged to home or Selfcare 10/08/2024 1:40 PM CDT Office Visit [facility] - Family Medicine - [place] [address] [place] [address] Liz Capellan, DO [address] [address] 11/16/2024 1:00 PM CDT Office Visit [facility] - Pulmonology & Sleep Medicine - [place] [address] [place] [address] Werner Swift MD [address] [place] [phone] documented as of this encounter Goals Goal [...] Zones/Action plan education. I will notify my Store Promoter if my symptoms fall in the y [...] 19 04/20/2022 04/20/2022 04/30/2022 12:1 8 AM RECORDS SUPERVISOR COVID - 19 07/18/2022 07/18/2022 07/28/2022 12:1 6 AM RECORDS SUPERVISOR COVID - 19 08/21/2022 08/21/2022 08/22/2022 8:31 AM CDT Respiratory Rule Out - RPA 08/21/2022 08/21/2022 0 08/22/2022 3:21 PM CDT COVID - 19 04/18/2023 04/18/2023 04/28/2023 12:1 6 AM RECORDS SUPERVISOR COVID - 19 07/13/2023 07/13/2023 07/23/2023 12:1 6 AM RECORDS SUPERVISOR Respiratory Rule Out - RPA 03/17/2024 03/17/2024 1 3:36 PM CDT COVID - 19 04/27/2024 04/27/2024 04/27/2024 2:19 PM RECORDS SUPERVISOR Respiratory Rule-Out 07/24/2024 07/24/2024 025 2:29 PM RECORDS SUPERVISOR COVID - 19 07/24/2024 07/24/2024 07/24/2024 2:29 PM RECORDS SUPERVISOR Assessment Noted Time PHQ-9 Depression Total Score: 1 03/07/20 21 10:29 AM CDT documented as of this encounter Care Teams Manufacturing Industrial Engineer Relationship Specialty Start Date End Date Keith Craft MD PCP - General Family Medicine 01/14/19 12/26/23 Liz Capellan DO [address] [address] PCP - General Family Medicine 12/27/23 Quang Locke DO Gastroenterology 01/18/16 Bri Rollins RN [place] Store Promoter 03/07/21 05/22/23 [place] [address] [address] 05/25/21 Bri Rollins RN [place] Nurse Store Promoter 03/07/21 05/23/23 Werner Swift MD [address] [place] [phone] Consulting Physician Pulmonary Disease 01/30/22 Yasmin Restrepo MD [address] [address] Consulting Physician Endocrinology 07/20/24 documented as of this encounter
--- OUTSIDE RECORDS SUMMARY | 2024-08-16 19:30 | XMS_ITS | Encounter Summary ---
Author Organization [facility] Address [address] [place] [address] Phone Care Team Providers Care Ruby Engineer Name Role Phone Quang Locke DO Unavailable [phone] Keith Craft MD Primary Care Provider [phone] Bri Rollins RN Unavailable Unavailable Silvio Schulte MD Unavailable [phone] Bri Rollins RN Unavailable Unavailable Werner Swift MD Unavailable Liz Capellan DO Primary Care Provider [phone] Yasmin Restrepo MD Unavailable Reason for Visit * Reason Comments Medication Refill Encounter Details Date Type Department Care Team (Late st Contact Info) Description 08/24/2020 [facility]ill [facility] #2 [place] [address] Keith Craft MD #1 [place] [address] Medication Refill Social History Tobacco Use Types [...] COVID-19? 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 [facility] Keith Lemus MD Upcoming Appointments Future Appointments In 1 month Keith Craft MD [facility] Maximiliano Tesfaye [facility] CHARGE ENTRY CLERK - Recent and Past Visits Recent Visits Date Type Provider Dept 06/07/20 Office Visit Keith Craft MD [facility] 04/25/20 Office Visit Keith Craft MD [facility] 02/02/20 Office Visit Keith Craft MD [facility] 11/02/19 Office Visit Keith Craft MD [facility] 07/27/19 Office Visit Keith Craft MD [facility] 06/10/19 Office Visit Brie Denis PAC [facility] Showing recent visits within past 460 days with a meds authorizing provider and meeting all other requirements Future Appointments Date Type Provider Dept 10/04/20 Appointment Keith Craft MD [facility] Showing future appointments within next 90 days with a meds authorizing provider and meeting all other requirements documented in this encounter Plan of Treatment Upcoming Encounters Date Type Department Care Team (Late st Contact Info) Description 08/27/2024 1:15 PM CDT Office Visit [facility] - Endocrinology [facility] #2 [place] [phone] Yasmin Restrepo MD #[address] [phone] 09/02/2024 2:00 PM CDT [facility] [address] [place] [phone] Werner Swift MD #2 [place] [address] Discharge Disposition: Discharged to home or Selfcare 10/08/2024 1:40 PM CDT Office Visit [facility] - Family Medicine [facility] [address]2 [place] [address] Liz Capellan, DO [address] [place] [address] 11/16/2024 1:00 PM CDT Office Visit [facility] - Pulmonology & Sleep Medicine - [place] [address] [place] [address] Werner Swift MD [address]2 [place] [address] documented as of this encounter Visit Diagnoses Not on filedocumented in this encounter Additional Health Concerns Infection Onset Date Last Indicated Resolved Time COVID - 19 01/25/2021 01/25/2021 01/31/2021 8:10 AM CDT Respiratory Rule Out - RPA 01/30/2021 01/30/2021 0 02/01/2021 12:45 AM CDT COVID - 19 07/23/2021 07/23/2021 07/24/2021 6:31 AM ARMORED MACHINE OPERATOR COVID - 19 10/19/2021 10/19/2021 10/20/2021 7:45 AM CDT Respiratory Rule Out - RPA 10/19/2021 10/19/2021 0 10/20/2021 2:10 PM CDT Stenotrophomonas maltophilia Comment:Must have a follow up respiratory sample to remove isolation flag. 10/20/2021 10/20/2021 COVID - 19 04/20/2022 04/20/2022 04/30/2022 12:1 8 AM ARMORED MACHINE OPERATOR COVID - 19 07/18/2022 07/18/2022 07/28/2022 12:1 6 AM ARMORED MACHINE OPERATOR COVID - 19 08/21/2022 08/21/2022 08/22/2022 8:31 AM CDT Respiratory Rule Out - RPA 08/21/2022 08/21/2022 0 08/22/2022 3:21 PM CDT COVID - 19 04/18/2023 04/18/2023 04/28/2023 12:1 6 AM ARMORED MACHINE OPERATOR COVID - 19 07/13/2023 07/13/202307/2307/23/2023 12:1 6 AM ARMORED MACHINE OPERATOR Respiratory Rule Out - RPA 03/17/2024 03/17/2024 1 3:36 PM CDT COVID - 19 04/27/2024 04/27/2024 04/27/2024 2:19 PM ARMORED MACHINE OPERATOR Respiratory Rule-Out 07/24/2024 07/24/2024 025 2:29 PM ARMORED MACHINE OPERATOR COVID - 19 07/24/2024 07/24/2024 07/24/2024 2:29 PM ARMORED MACHINE OPERATOR Assessment Noted Time PHQ-9 Depression Total Score: 2 06/07/19 2:34 PM ARMORED MACHINE OPERATOR documented as of this encounter Care Teams Ruby Engineer Relationship Specialty Start Date End Date Keith Craft MD PCP - General Family Medicine 01/14/19 12/26/23 Liz Capellan DO [address] [address] PCP - General Family Medicine 12/27/23 Quang Locke DO Gastroenterology 01/18/16 Bri Rollins RN [place] Blood Bank Laboratory Technician 03/07/21 05/22/23 [place] [id number] [address] 05/25/21 Bri Rollins RN [place] Nurse Blood Bank Laboratory Technician 03/07/21 05/23/23 Werner Swift MD #2 [place] [address] Consulting Physician Pulmonary Disease 01/30/22 Yasmin Restrepo MD #[address] [address] Consulting Physician Endocrinology 07/20/24 documented as of this encounter
--- OUTSIDE RECORDS SUMMARY | 2024-08-16 19:30 | XMS_ITS | Encounter Summary ---
Author Organization [facility] Address [address] [place] [address] Phone Care Team Providers Care Tax Accounting Assistant Name Role Phone Quang Locke DO Unavailable [phone] Keith Craft MD Primary Care Provider [phone] Silvio Schulte MD Unavailable [phone] Werner Swift MD Unavailable Liz Capellan DO Primary Care Provider [phone] Yasmin Restrepo MD Unavailable Reason for Visit * Reason Comments Medication Refill Encounter Details Date Type Department Care Team (Late st Contact Info) Description 08/12/2023 Refill [facility] #2 [place] [address] Keith Craft MD [address] [place] [address] Medication Refill Social History Tobacco Use Types Packs/Day Years Used Date Smoking Tobacco: Former Cigarettes 2 50 1 - 03/16/2018 Smokeless Tobacco: Never Comments:Still uses nictoine patches and gum Alcohol Use Standard Drinks/Week Comments No 0 (1 standard drink = 0.6 oz pur e alcohol) [facility] Utilities Answer Date Recorded In [...] often do you attend chur ch or yazidi services? Never 07/13/2023 Do you belong to any clubs o r organizations such as baptism groups, unions, fraternal or athletic groups, or [...] Score - Questions 1-9 0 /0 08/2021 [facility] of Occupat ional Health - Occupational Stress [...] place to sleep or slept in a half-way (including now)? No 07/13/2023 Education Answer Date [...] Health Questionnaire-2 Score 0 08/15/2023 1:28 PM CDT Chris Frankel MA documented as of this encounter Miscellaneous Notes * Telephone Encounter - Gloria Cornejo RN - 08/12/2023 12:50 PM CDT Images from the original note were not included. oxyCODONE-Acetaminophen Dispensed Written Strength Quantity Refills Days Supply Provider Pharmacy OXYCODONE HCL-ACETAMINOPHEN 07/06/2023 06/18/2023 325 MG-10 MG 45 0 15 , [facility] OXYCODONE HCL-ACETAMINOPHEN 06/19/2023 06/18/2023 325 MG-10 MG 25 0 8 , [facility]... OXYCODONE HCL-ACETAMINOPHEN 06/13/2023 06/13/2023 325 MG-5 MG 45 0 15 , [facility]... Pt has been taking Oxycodone. documented in this encounter Plan of Treatment Upcoming Encounters Date Type Department Care Team (Late st Contact Info) Description 08/27/2024 1:15 PM CDT [facility] #2 [place] [phone] Yasmin Restrepo MD #[address] [phone] 09/02/2024 2:00 PM CDT [facility] 1 [place] [address] Werner Swift MD #2 [place] [address] Discharge Disposition: Discharged to home or Selfcare 10/08/2024 1:40 PM CDT Office Visit [facility] - Family Medicine [facility] #2 [place] [address] Liz Capellan, DO 2 [address] [place] [address] 11/16/2024 1:00 PM CDT Office Visit [facility] - Pulmonology & Sleep Medicine - [place] [address] [place] [address] Werner Swift MD #2 [place] [address] documented as of this encounter Goals Goal [...] education. I will notify my Director Of Broadcast if my symptoms fall in the y [...] - 19 04/27/2024 04/27/2024 04/27/2024 2:19 PM MOLDER MACHINE Respiratory Rule-Out 07/24/2024 07/24/2024 025 2:29 PM MOLDER MACHINE COVID - 19 07/24/2024 07/24/2024 07/24/2024 2:29 PM MOLDER MACHINE Assessment Noted Time PHQ-9 Depression Total Score: 1 03/07/20 21 10:29 AM CDT documented as of this encounter Care Teams Tax Accounting Assistant Relationship Specialty Start Date End Date Keith Craft MD PCP - General Family Medicine 01/14/19 12/26/23 Liz Capellan DO [address] [address] PCP - General Family Medicine 12/27/23 Quang Locke DO Gastroenterology 01/18/16 [place] [address] [address] 05/25/21 Werner Swift MD [address]2 [place] [address] Consulting Physician Pulmonary Disease 01/30/22 Yasmin Restrepo MD #[address] [phone] (work) Consulting Physician Endocrinology 07/20/24 documented as of this encounter
--- OUTSIDE RECORDS SUMMARY | 2024-08-16 19:31 | XMS_ITS | Encounter Summary ---
Author Organization [facility] Address [address] [place] [address] Phone Care Team Providers Care Chemical Machine Tender Name Role Phone Quang Locke DO Unavailable Keith Craft MD Primary Care Provider [phone] Bri Rollins RN Unavailable Unavailable Silvio Schulte MD Unavailable [phone] Bri Rollins RN Unavailable Unavailable Werner Swift MD Unavailable Liz Capellan DO Primary Care Provider [phone] Yasmin Restrepo MD Unavailable Reason for Visit * Reason Comments Medication Refill Encounter Details Date Type Department Care Team (Late st Contact Info) Description 01/24/2023 Refill [facility] #2 [place] [address] Keith Craft MD #1 [place] [address] Medication Refill Social History Tobacco Use Types [...] Pending Prescriptions Disp Refills ergocalciferol (VITAMIN D) 52180 UNIT Capsule [Pharmacy Med Name: VITAMIN D 54195GWY CAPSULE] 12 Capsule 0 Sig: TAKE ONE CAPSULE BY MOUTH ONE TIME WEEKLY Vitamin Supplements (Adult) Protocol Failed - 01/24/2023 3:49 PM Failed - Active on medication list Failed - Vitamin D dose not greater than 1.25mg Passed - Visit with relevant provider in past 12 months or upcoming 90 days Recent Visits Date Type Provider Dept 12/10/22 Office Visit Keith Craft MD [facility] 09/10/22 Office Visit Keith Craft MD [facility] 07/18/22 Office Visit Kerri Kauffman, LINE MANAGER, GLASS DECORATOR [facility] [place] 06/07/22 Office Visit Keith Craft MD [facility] 03/02/22 Procedure Visit [facility]22 Office Visit Keith Craft MD [facility] Showing recent visits within past 365 [...] [facility] 07/18/22 Office Visit Kerri Kauffman, LINE MANAGER, GLASS DECORATOR [facility] Office Visit Keith Craft MD [facility] 03/02/22 Procedure Visit [facility] 03/02/22 Office Visit Keith Craft MD [facility] Showing recent visits within past [...] Visit [facility] - [facility]ocrin[facility] - [place] #2 [place] [address] Yasmin Restrepo MD #[address] [address] 09/02/2024 2:00 PM CDT [facility] [address] [facility] [place] [address] Werner Swift MD #[address] [place] [address] Discharge Disposition: Discharged to home or Selfcare 10/08/2024 1:40 PM CDT [facility] - Family Medicine - [place] #[address] [place] [address] Liz Capellan, DO 2 [facility] [address] [address] 11/16/2024 1:00 PM CDT Office Visit [facility] - Pulmonology & Sleep Medicine [facility] #2 [place] [address] Werner Swift MD #[address] [place] [address] documented as of this encounter Goals Goal [...] plan education. I will notify my Manager Internal if my symptoms fall in the y [...] 19 04/18/2023 04/18/2023 04/28/2023 12:1 6 AM GARAGE ATTENDANT COVID - 19 07/13/2023 07/13/2023 07/23/2023 12:1 6 AM GARAGE ATTENDANT Respiratory Rule Out - RPA 03/17/2024 03/17/2024 1 3:36 PM CDT COVID - 19 04/27/2024 04/27/2024 04/27/2024 2:19 PM GARAGE ATTENDANT Respiratory Rule-Out 07/24/2024 07/24/2024 025 2:29 PM GARAGE ATTENDANT COVID - 19 07/24/2024 07/24/2024 07/24/2024 2:29 PM GARAGE ATTENDANT Assessment Noted Time PHQ-9 Depression Total Score: 1 03/07/20 21 10:29 AM CDT documented as of this encounter Care Teams Chemical Machine Tender Relationship Specialty Start Date End Date Keith Craft MD PCP - General Family Medicine 01/14/19 12/26/23 Liz Capellan DO [address] [address] PCP - General Family Medicine 12/27/23 Quang Locke DO Gastroenterology 01/18/16 Bri Rollins, RN [place] Manager Internal 03/07/21 05/22/23 [place] [address] [address] 05/25/21 Bri Rollins RN [place] Nurse Manager Internal 03/07/21 05/23/23 Werner Swift MD #[address] [place] [address] Consulting Physician Pulmonary Disease 01/30/22 Yasmin Restrepo MD #[address] [phone] Consulting Physician Endocrinology 07/20/24 documented as of this encounter
--- OUTSIDE RECORDS SUMMARY | 2024-08-16 19:31 | XMS_ITS | Clinical Summary ---
Author Organization [facility] Address [address] [place] [address] Care Team Providers Care Mattress And Foundation Sewer Name Role Phone Keith Craft MD Primary Care Provider [phone] Luis F Frausto MD Unavailable [phone] Allergies Active Allergy Reactions Criticality Noted [...] (08/23/2021): Added automatically from request for surgery [id number] Influenza A 06/16/2017 Cardiomyopathy 06/16/2017 Septicemia 06/16/2017 Anxiety 06/16/2017 Chronic obstructive pulmonar y disease with acute exacerbation 05/21/2017 Encounters Date Type Department Care Team Description 06/10/2024 2:45 PM PHARMACEUTICAL ANALYST Lab [address] [address] from Last 3 Months Surgical [...] (premature ventricular contraction) Hyperlipidemia CHF (congestive heart failure) (HCC) Emphysema of lung (HCC) Hypothyroidism Arthritis [...] on file Legal Sex Female 5:46 PM PHARMACEUTICAL ANALYST Gender Identity Not on file Sexual Orientation [...] 02/23/2010 Colon Cancer Screening-DNA Stool Discontinued 02/24/20 10 Colon Cancer Screening-FIT Discontinued 02/23/2010 Colon Cancer Screening-Sigmoidoscopy Discontinued 02/23/2010 Zoster Vaccine Completed 02/03/2019, 02/19/2018 Pneumococcal vaccine 65+ Completed 019, 02/20/2018, 11/24/2014 Influenza Vaccine Completed 03/03/2024, , 01/18/2021, Additional history exists Medical Devices Implanted Type Area Piano Professor Device Identifier Shelf Expiration Date Model / [...] CDT PROCEDURE REPORT Patient: KARY CORONADO Account: [id number] Room No: : 1950 Patient Type: [facility] Attend.: Jass Huang M.D. Admit Date: 02/23/2010 Dict.: Jass Huang M.D. Disch. Date: NAME OF PROCEDURE: Colonoscopy. HISTORY OF PRESENT ILLNESS This is a 59-year-old female who presents for screening colonoscopy. PHYSICAL EXAMINATION Well developed female. Lungs are clear. Cardiovascular exam isunremarkable. PROCEDURE: Colonoscopy was performed with the Context app video endoscope. The patientwas premedicated by anesthesia. [...] Recently Relevant to Health Maintenance Insurance MEDICARE [facility] [place] Advance Directives For more information, please contact: [phone] * Full Code (Latest Code Status on File) Date Activated Date Inactivated Comments 05/17/2017 9:28 PM 05/21/2017 8:00 PM Care Teams Mattress And Foundation Sewer Relationship Specialty Start Date End Date Keith Craft MD [address] [place] [address] [address] PCP - General 02/05/21 Luis F Frausto MD [address] [place] [address] [address] Consulting Physician Interventional Cardiology 09/13/21
--- OUTSIDE RECORDS SUMMARY | 2024-08-16 19:31 | XMS_ITS | Encounter Summary ---
Author Organization [facility] Address [address] [place] [address] Phone Care Team Providers Care Steam Shovel Operator Name Role Phone Quang Locke DO Unavailable Keith Craft MD Primary Care Provider [phone] Bri Rollins RN Unavailable Unavailable Silvio Schulte MD Unavailable [phone] Bri Rollins RN Unavailable Unavailable Werner Swift MD Unavailable iLz Capellan DO Primary Care Provider [phone] Yasmin Restrepo MD Unavailable Reason for Visit * Reason Comments Medication Refill Encounter Details Date Type Department Care Team (Late st Contact Info) Description 10/01/2022 Refill [facility] Family Medicine [facility] #2 [place] [address] Keith Craft MD #1 [place] [address] Medication Refill Social History Tobacco Use Types [...] RN - 10/01/2022 4:12 PM CDT PDMP [place] 09/03/22 - Diazepam 09/03/22 Medication failed the [...] Dept 09/10/22 Office Visit [facility] 07/[facility]22 Office Visit Kerri Kauffman, AQUACULTURE AND FISHERIES PROFESSOR, PUBLIC AREA SUPERVISOR [facility] Office Visit [facility] 03/02/22 Procedure Visit [facility] 03/02/22 Office Visit Keith Craft MD [facility] 07/18/22 Office Visit Kerri Kauffman, AQUACULTURE AND FISHERIES PROFESSOR, PUBLIC AREA SUPERVISOR [facility] 06/07/22 Office Visit Keith Craft MD [facility] 03/02/22 Procedure Visit [facility]AL [facility] 03/02/22 Office Visit Keith Craft MD [facility] 11/03/21 Office Visit Keith Craft MD [facility] 10/19/21 Office Visit Keith Craft MD [facility] 10/05/21 Office Visit [facility] Showing recent visits within past 365 [...] Type Provider Dept 09/10/22 Office Visit Keith Craft, MD [facility] 07/18/22 Office Visit Kerri Kauffman AQUACULTURE AND FISHERIES PROFESSOR, PUBLIC AREA SUPERVISOR [facility] 06/07/22 Office Visit Keith Craft MD [facility] 03/02/22 Procedure Visit [facility] RETINAL IMAG[facility] 03/02/22 Office Visit Keith Craft MD [facility] 11/03/21 Office Visit Keith Craft MD [...] [facility] 07/18/22 Office Visit Kerri Kauffman AQUACULTURE AND FISHERIES PROFESSOR, PUBLIC AREA SUPERVISOR [facility] 06/07/22 Office Visit Keith Craft MD [facility] 03/02/22 Procedure Visit [facility] RET[facility]AL IMAG[facility] 03/02/22 Office Visit Keith Craft MD [facility] 11/03/21 Office Visit Keith Craft MD [facility] 10/19/21 Office Visit Keith Craft MD [facility] 10/05/21 Office Visit Keith Craft MD [facility] Showing recent visits within past 365 days and meeting all other requirements Future Appointments Date Type Provider Dept 12/10/22 Appointment Keith Craft MD [facility] Showing future appointments within next 90 days and meeting all other requirements documented in this encounter Plan of Treatment Upcoming Encounters Date Type Department Care Team (Late st Contact Info) Description 08/27/2024 1:15 PM CDT Office Visit [facility] - Endocrinology [facility] #2 [place] [address] Yasmin Restrepo MD #[address] [phone] 09/02/2024 2:00 PM CDT Appointment [facility] Respiratory Therapy [address] [place] [address] Werner Swift MD #2 [place] [address] Discharge Disposition: Discharged to home or Selfcare 10/08/2024 1:40 PM CDT Office Visit [facility] Family Medicine [facility] #2 [place] [address] Liz Capellan, DO [address] [address] 11/16/2024 1:00 PM CDT Office Visit [facility] - Pulmonology & Sleep Medicine [facility] #2 [place] [address] Werner Swift MD #[address] [place] [address] documented as of this encounter Goals Goal [...] Zones/Action plan education. I will notify my Running Rigger if my symptoms fall in the y [...] 19 04/18/2023 04/18/2023 04/28/2023 12:1 6 AM HEALTH TECHNICIAN COVID - 19 07/13/2023 07/13/2023 07/23/2023 12:1 6 AM HEALTH TECHNICIAN Respiratory Rule Out - RPA 03/17/2024 03/17/2024 1 3:36 PM CDT COVID - 19 04/27/2024 04/27/2024 04/27/2024 2:19 PM HEALTH TECHNICIAN Respiratory Rule-Out 07/24/2024 07/24/2024 025 2:29 PM HEALTH TECHNICIAN COVID - 19 07/24/2024 07/24/2024 07/24/2024 2:29 PM HEALTH TECHNICIAN Assessment Noted Time PHQ-9 Depression Total Score: 1 03/07/20 21 10:29 AM CDT documented as of this encounter Care Teams Steam Shovel Operator Relationship Specialty Start Date End Date Keith Craft MD PCP - General Family Medicine 01/14/19 12/26/23 Liz Capellan DO [address] [address] PCP - General Family Medicine 12/27/23 Quang Locke DO Gastroenterology 01/18/16 Bri Rollins, RN [place] Running Rigger 03/07/21 05/22/23 [place] [address] [address] 05/25/21 Bri Rollins, RN [place] Nurse Running Rigger 03/07/21 05/23/23 Werner Swift MD #2 [place] [phone] Consulting Physician Pulmonary Disease 01/30/22 Yasmin Restrepo MD #[address] [phone] Consulting Physician Endocrinology 07/20/24 documented as of this encounter
--- OUTSIDE RECORDS SUMMARY | 2024-08-16 19:31 | XMS_ITS | Encounter Summary ---
Author Organization [facility] Address [address] [place] [address] Phone Care Team Providers Care Sandfill Operator Name Role Phone Quang Locke DO Unavailable [phone] Keith Craft MD Primary Care Provider [phone] Bri Rollins RN Unavailable Unavailable Silvio Schulte MD Unavailable [phone] Bri Rollins RN Unavailable Unavailable Werner Swift MD Unavailable Liz Capellan DO Primary Care Provider [phone] Yasmin Restrepo MD Unavailable Reason for Visit * Reason Comments Medication Refill Encounter Details Date Type Department Care Team (Late st Contact Info) Description 04/25/2021 [facility]ill [facility] - [facility] #2 [place] [address] Keith Craft MD #1 [place] [address] Medication Refill Social History Tobacco Use Types [...] COVID-19? No / Unsure 04/18/2021 1:18 PM BOW TACKER documented as of this encounter Miscellaneous Notes [...] Outpatient Visits 1 week ago Mixed hyperlipidemia [facility] - Family Medicine - Keith Jenkins MD 1 month ago Acute bronchitis, unspecified organism [facility] Family Medicine - Keith Jenkins MD 2 months ago Pneumonia of right lower lobe due to infectious organism [facility] Family Medicine - Keith Jenkins MD 2 months ago Type 2 diabetes mellitus with diabetic neuropathy, with long-term current use of insulin (HCC) [facility] Family [facility] - Brie Castano PAC 3 months ago Chronic low back pain, unspecified back pain laterality, unspecified whether sciatica present [facility] Family Medicine - Keith Jenkins MD Upcoming Appointments Future Appointments In 3 months Keith Craft MD [facility] Family Medicine - [place], [facility] INFORMATICS MANAGER - Recent and Past Visits Recent Visits Date Type Provider Dept 04/14/21 Office Visit Keith Craft MD [facility] 03/23/21 Office Visit Keith Craft MD [facility] 02/07/21 Office Visit Keith Craft MD [facility] 02/03/21 Office Visit Brie Denis, NICOLE [facility] [place] 01/12/21 [facility] 10/12/20 Office Visit Keith Craft MD [facility] 10/04/20 Office Visit Keith Craft MD [facility] 06/07/20 Office Visit Keith Craft MD [facility] 04/25/20 Office Visit Keith Craft MD [facility] 02/02/20 Office Visit Keith Craft MD [facility] Showing recent visits within past 460 days with a meds authorizing provider and meeting all other requirements Future Appointments No visits were found meeting these conditions. Showing future appointments within next 90 days with a meds authorizing provider and meeting all other requirements Passed - Last BP in normal range BP Readings from Last 1 Encounters: 04/14/21 110/64 TACKER documented in this encounter Plan of Treatment Upcoming Encounters Date Type Department Care Team (Late st Contact Info) Description 08/27/2024 1:15 PM CDT Office Visit [facility] - Endocrinology - Brien [address] [place] [address] Yasmin Restrepo MD [address] [address] 09/02/2024 2:00 PM CDT Appointment [facility] Respiratory Therapy 1 [place] [address] Werner Swift MD #2 [place] [address] Discharge Disposition: Discharged to home or Selfcare 10/08/2024 1:40 PM CDT Office Visit [facility] - Family Medicine [facility] #2 [place] [address] Liz Capellan, DO [address] [address] 11/16/2024 1:00 PM CDT Office Visit [facility] - Pulmonology & Sleep Medicine [facility] #2 [place] [address] Werner Swift MD #2 [place] [address] documented as of this encounter Goals Goal [...] Zones/Action plan education. I will notify my Electrical Assembly Supervisor if my symptoms fall in the [...] - 19 07/23/2021 07/23/2021 07/24/2021 6:31 AM BOW TACKER COVID - 19 10/19/2021 10/19/2021 10/20/2021 7:45 AM CDT Respiratory Rule Out - RPA 10/19/2021 10/19/2021 0 10/20/2021 2:10 PM CDT Stenotrophomonas maltophilia Comment:Must have a follow up respiratory sample to remove isolation flag. 10/20/2021 10/20/2021 COVID - 19 04/20/2022 04/20/2022 04/30/2022 12:1 8 AM BOW TACKER COVID - 19 07/18/2022 07/18/2022 07/28/2022 12:1 6 AM BOW TACKER COVID - 19 08/21/2022 08/21/2022 08/22/2022 8:31 AM CDT Respiratory Rule Out - RPA 08/21/2022 08/21/2022 0 08/22/2022 3:21 PM CDT COVID - 19 04/18/2023 04/18/2023 04/28/2023 12:1 6 AM BOW TACKER COVID - 19 07/13/2023 07/13/2023 07/23/2023 12:1 6 AM BOW TACKER Respiratory Rule Out - RPA 03/17/2024 03/17/2024 1 3:36 PM CDT COVID - 19 04/27/2024 04/27/2024 04/27/2024 2:19 PM BOW TACKER Respiratory Rule-Out 07/24/2024 07/24/2024 025 2:29 PM BOW TACKER COVID - 19 07/24/2024 07/24/2024 07/24/2024 2:29 PM BOW TACKER Assessment Noted Time PHQ-9 Depression Total Score: 1 03/07/20 21 10:29 AM CDT documented as of this encounter Care Teams Sandfill Operator Relationship Specialty Start Date End Date Keith Craft MD PCP - General Family Medicine 01/14/19 12/26/23 Liz Capellan DO 2 [facility] [address] [address] PCP - General Family Medicine 12/27/23 Quang Locke DO Gastroenterology 01/18/16 Bri Rollins RN [place] Electrical Assembly Supervisor 03/07/21 05/22/23 [place] [id number] [address] 05/25/21 Bri Rollins RN [place] Nurse Electrical Assembly Supervisor 03/07/21 05/23/23 Werner Swift MD #2 [place] [address] Consulting Physician Pulmonary Disease 01/30/22 Yasmin Restrepo MD #[address] [address] Consulting Physician Endocrinology 07/20/24 documented as of this encounter
--- OUTSIDE RECORDS SUMMARY | 2024-08-16 19:31 | XMS_ITS | Encounter Summary ---
Author Organization [facility] Address [address] [place] [address] Phone Care Team Providers Care Photographer'S Assistant Name Role Phone Quang Locke DO Unavailable [phone] Keith Craft MD Primary Care Provider [phone] Silvio Schulte MD Unavailable [phone] Werner Swift MD Unavailable Lzi Capellan DO Primary Care Provider [phone] Yasmin Restrepo MD Unavailable Reason for Visit * Reason Comments Medication Refill Encounter Details Date Type Department Care Team (Late st Contact Info) Description 09/04/2023 Refill [facility] - Family Medicine [facility] #2 [place] [address] Keith Craft MD [address] [place] [address] Medication Refill Social History Tobacco Use Types Packs/Day Years Used Date Smoking Tobacco: Former Cigarettes 2 50 1 - 03/16/2018 Smokeless Tobacco: Never Comments:Still uses nictoine patches and gum Alcohol Use Standard Drinks/Week Comments No 0 (1 standard drink = 0.6 oz pur e alcohol) [facility] Utilities Answer Date Recorded In the past [...] often do you attend chur ch or rastafari services? Never 07/13/2023 Do you belong to any clubs o r organizations such as gnosticism groups, unions, fraternal or athletic groups, or [...] Score - Questions 1-9 0 /0 08/2021 [facility] [place] of Occupat ional Health - Occupational Stress [...] place to sleep or slept in a chcf (including now)? No 07/13/2023 Education Answer Date [...] 08/15/2023 30 120 Tablet Keith Craft MD [facility]... documented in this encounter Plan of Treatment Upcoming Encounters Date Type Department Care Team (Late st Contact Info) Description 08/27/2024 1:15 PM CDT Office Visit [facility] - Endocrinology [facility] #2 [place] [address] Yasmin Restrepo MD #[address] [phone] 09/02/2024 2:00 PM CDT [facility] 1 [place] [address] Werner Swift MD #2 [place] [address] Discharge Disposition: Discharged to home or Selfcare 10/08/2024 1:40 PM CDT Office Visit [facility] Family Medicine [facility] #2 [place] [address] Liz Capellan, DO [address] [address] 11/16/2024 1:00 PM CDT Office Visit [facility] - Pulmonology & Sleep Medicine [facility] #2 [place] [address] Werner Swift MD [address] [place] [address] documented as of this encounter Goals Goal [...] Zones/Action plan education. I will notify my Alterations Expert if my symptoms fall in the y [...] COVID - 04/27/2024 04/27/2024 04/27/2024 2:19 PM PRESSURE TESTING TECHNICIAN Respiratory Rule-Out 07/24/2024 07/24/2024 025 2:29 PM PRESSURE TESTING TECHNICIAN COVID - 19 07/24/2024 07/24/2024 07/24/2024 2:2 9 PM PRESSURE TESTING TECHNICIAN Assessment Noted Time PHQ-9 Depression Total Score: 1 03/07/20 21 10:29 AM CDT documented as of this encounter Care Teams Photographer'S Assistant Relationship Specialty Start Date End Date Keith Craft MD PCP - General Family Medicine 01/14/19 12/26/23 Liz Capellan DO 2 [facility] [address] [place] [address] PCP - General Family Medicine 12/27/23 Quang Locke DO Gastroenterology 01/18/16 [place] [address] [address] 05/25/21 Werner Swift MD #2 [place] [address] Consulting Physician Pulmonary Disease 01/30/22 Yasmin Restrepo MD #[address] [phone] Consulting Physician Endocrinology 07/20/24 documented as of this encounter
--- OUTSIDE RECORDS SUMMARY | 2024-08-16 19:31 | XMS_ITS | Encounter Summary ---
Author Organization [facility] Address [address] [place] [address] Phone Care Team Providers Care Ratings Analyst Name Role Phone Quang Locke DO Unavailable [phone] Keith Craft MD Primary Care Provider [phone] Silvio Schulte MD Unavailable [phone] Werner Swift MD Unavailable Liz Capellan DO Primary Care Provider [phone] Yasmin Restrepo MD Unavailable Reason for Visit * Reason Comments Medication Refill Encounter Details Date Type Department Care Team (Late st Contact Info) Description 09/25/2023 Refill [facility] - Family Medicine [facility] #2 [place] [address] Keith Craft MD #1 [place] [address] Medication Refill Social History Tobacco Use Types Packs/Day Years Used Date Smoking Tobacco: Former Cigarettes 2 50 1 - 03/16/2018 Smokeless Tobacco: Never Comments:Still uses nictoine patches and gum Alcohol Use Standard Drinks/Week Comments No 0 (1 standard drink = 0.6 oz pur e alcohol) [facility] Utilities Answer Date Recorded In the past [...] often do you attend chur ch or congregation services? Never 07/13/2023 Do you belong to any clubs o r organizations such as episcopal groups, unions, fraternal or athletic groups, or [...] Questions 1-9 0 /0 08/2021 [facility] [place] of Occupat ional Health - Occupational Stress [...] Office Visit [facility] - Endocrinology [facility] #2 [place] [address] Yasmin Restrepo MD #[address] [address] 09/02/2024 2:00 PM CDT [facility] 1 [place] [address] Werner Swift MD #2 [place] [address] Discharge Disposition: Discharged to home or Selfcare 10/08/2024 1:40 PM CDT Office Visit [facility] Family Medicine [facility] #2 [place] [address] Liz Capellan, DO [address] [address] 11/16/2024 1:00 PM CDT Office Visit [facility] - Pulmonology & Sleep Medicine [facility] #2 [place] [address] Werner Swift MD #2 [place] [address] documented as of this encounter Goals Goal [...] Zones/Action plan education. I will notify my Meat Clerk if my symptoms fall in the y [...] of insulin ([facility]) documented in this encounter Additional Health Concerns Infection Onset Date Last Indicated Resolved Time Stenotrophomonas maltophilia Comment:Must have a follow up respiratory sample to remove isolation flag. 10/20/2021 10/20/2021 Respiratory Rule Out - RPA 03/17/2024 03/17/2024 1 3:36 PM CDT COVID - 19 04/27/2024 04/27/2024 04/27/2024 2:19 PM HELP DESK ENGINEER Respiratory Rule-Out 07/24/2024 07/24/2024 025 2:29 PM HELP DESK ENGINEER COVID - 19 07/24/2024 07/24/2024 07/24/2024 2:29 PM HELP DESK ENGINEER Assessment Noted Time PHQ-9 Depression Total Score: 1 03/07/20 21 10:29 AM CDT documented as of this encounter Care Teams Ratings Analyst Relationship Specialty Start Date End Date Keith Craft MD PCP - General Family Medicine 01/14/19 12/26/23 Liz Capellan DO 2 [place] [address] PCP - General Family Medicine 12/27/23 Quang Locke DO Gastroenterology 01/18/16 [place] [address] [address] 05/25/21 Werner Swift MD #2 [place] [address] Consulting Physician Pulmonary Disease 01/30/22 Yasmin Restrepo MD #[address] [address] Consulting Physician Endocrinology 07/20/24 documented as of this encounter
--- OUTSIDE RECORDS SUMMARY | 2024-08-16 19:31 | XMS_ITS | Encounter Summary ---
Author Organization [facility] Address [address] [place] [address] Phone Care Team Providers Care Freight Representative Name Role Phone Quang Locke DO Unavailable Keith Craft MD Primary Care Provider [phone] Silvio Schulte MD Unavailable [phone] Werner Swift MD Unavailable Liz Capellan DO Primary Care Provider [phone] Yasmin Restrepo MD Unavailable Reason for Visit * Reason Comments Medication Refill Encounter Details Date Type Department Care Team (Late st Contact Info) Description 09/11/2023 Refill [facility] - Family Medicine [facility] [place] [facility] #2 [place] [address] Keith Craft MD #1 [place] [address] Medication Refill Social History Tobacco Use Types Packs/Day Years Used Date Smoking Tobacco: Former Cigarettes 2 50 1 - 03/16/2018 Smokeless Tobacco: Never Comments:Still uses nictoine patches and gum Alcohol Use Standard Drinks/Week Comments No 0 (1 standard drink = 0.6 oz pur e alcohol) [facility] Utilities Answer Date Recorded In the [...] any clubs o r organizations such as shinto groups, unions, fraternal or athletic groups, or [...] Score - Questions 1-9 0 /0 08/2021 [facility] [place] of Occupat ional Health - Occupational Stress [...] Tesfaye 12/10/22 Office Visit Keith Craft MD [facility] Showing recent visits within past 365 days and meeting all other requirements Future Appointments No visits were found meeting these conditions. Showing future appointments within next 90 days and meeting all other requirements documented in this encounter Plan of Treatment Upcoming Encounters Date Type Department Care Team (Late st Contact Info) Description 08/27/2024 1:15 PM CDT Office Visit [facility] Medical [facility] - Endocrinology [facility] [place] [facility] #2 [place] [address] Yasmin Restrepo MD #[address] [address] 09/02/2024 2:00 PM CDT Appointment [facility] Respiratory Therapy 1 [place] [address] Werner Swift MD #2 [place] [address] Discharge Disposition: Discharged to home or Selfcare 10/08/2024 1:40 PM CDT Office Visit [facility] Medical [facility] - Family Medicine [facility] [place] [facility] #2 [place] [address] Liz Capellan, DO [address] [address] 11/16/2024 1:00 PM CDT [facility] - Pulmonology & Sleep Medicine [facility] [place] [facility] #2 [place] [address] Werner Swift MD #[address] [place] [address] documented as of this encounter Goals Goal [...] Zones/Action plan education. I will notify my Briquette Molder if my symptoms fall in the y [...] - 19 04/27/2024 04/27/2024 04/27/2024 2:19 PM LABORER HIGH DENSITY PRESS Respiratory Rule-Out 07/24/2024 07/24/2024 025 2:29 PM LABORER HIGH DENSITY PRESS COVID - 19 07/24/2024 07/24/2024 07/24/2024 2:29 PM LABORER HIGH DENSITY PRESS Assessment Noted Time PHQ-9 Depression Total Score: 1 03/07/20 10:29 AM CDT documented as of this encounter Care Teams Freight Representative Relationship Specialty Start Date End Date Keith Craft MD PCP - General Family Medicine 01/14/19 12/26/23 Liz Capellan DO [address] [id number] PCP - General Family Medicine 12/27/23 Quang Locke DO Gastroenterology 01/18/16 [place] [address] [address] 05/25/21 Werner Swift MD #2 [place] [address] Consulting Physician Pulmonary Disease 01/30/22 Yasmin Restrepo MD #[address] [address] Consulting Physician Endocrinology 07/20/24 documented as of this encounter
--- OUTSIDE RECORDS SUMMARY | 2024-08-16 19:31 | XMS_ITS | Encounter Summary ---
Author Organization [facility] Address [address] [place] [address] Phone Care Team Providers Care Trick Rodeo Rider Name Role Phone Quang Locke DO Unavailable [phone] Keith Craft MD Primary Care Provider [phone] Silvio Schulte MD Unavailable Werner Swift MD Unavailable Liz Capellan DO Primary Care Provider [phone] Yasmin Restrepo MD Unavailable Reason for Visit * Reason Comments Medication Refill Encounter Details Date Type Department Care Team (Late st Contact Info) Description 09/23/2023 Refill [facility] - Family Medicine [facility] #2 [place] [address] Keith Craft MD #1 [place] [address] Medication Refill Social History Tobacco Use Types Packs/Day Years Used Date Smoking Tobacco: Former Cigarettes 2 50 1 - 03/16/2018 Smokeless Tobacco: Never Comments:Still uses nictoine patches and gum Alcohol Use Standard Drinks/Week Comments No 0 (1 standard drink = 0.6 oz pur e alcohol) [facility] Utilities Answer Date Recorded In [...] often do you attend chur ch or zoroastrian services? Never 07/13/2023 Do you belong to [...] Score - Questions 1-9 0 /0 08/2021 [facility] [place] of Occupat ional Health - Occupational Stress [...] to sleep or slept in a senior care (including now)? No 07/13/2023 Education Answer Date [...] Description 08/27/2024 1:15 PM CDT Office Visit [facility] - Endocrinology [facility] #2 [place] [address] Yasmin Restrepo MD #[address] [address] 09/02/2024 2:00 PM CDT Appointment [facility] Respiratory Therapy 1 [place] [address] Werner Swift MD #2 [place] [address] Discharge Disposition: Discharged to home or Selfcare 10/08/2024 1:40 PM CDT Office Visit [facility] Family Medicine [facility] #2 [place] [address] Liz Capellan, DO [address] [address] 11/16/2024 1:00 PM CDT Office Visit [facility] - Pulmonology & Sleep Medicine [facility] #2 [place] [address] Werner Swift MD #2 [place] [address] documented as of this encounter Goals Goal [...] Zones/Action plan education. I will notify my E Learning Coordinator if my symptoms fall in the [...] - 19 04/27/2024 04/27/2024 04/27/2024 2:19 PM JOB PLACEMENT SPECIALIST Respiratory Rule-Out 07/24/2024 07/24/2024 025 2:29 PM JOB PLACEMENT SPECIALIST COVID - 19 07/24/2024 07/24/2024 07/24/2024 2:29 PM JOB PLACEMENT SPECIALIST Assessment Noted Time PHQ-9 Depression Total Score: 1 03/07/20 21 10:29 AM CDT documented as of this encounter Care Teams Trick Rodeo Rider Relationship Specialty Start Date End Date Keith Craft MD PCP - General Family Medicine 01/14/19 12/26/23 Liz Capellan DO 2 [facility] [address] [facility] [address] [place] [address] PCP - General Family Medicine 12/27/23 Quang Locke DO Gastroenterology 01/18/16 [place] [address] [address] 05/25/21 Werner Swift MD #[address] [place] [address] Consulting Physician Pulmonary Disease 01/30/22 Yasmin Restrepo MD #[address] [address] Consulting Physician Endocrinology 07/20/24 documented as of this encounter
--- OUTSIDE RECORDS SUMMARY | 2024-08-16 19:31 | XMS_ITS | Encounter Summary ---
Author Organization [facility] Address [address] [place] [address] Phone Care Team Providers Care Side Stitching Machine Operator Name Role Phone Quang Locke DO Unavailable [phone] Keith Craft MD Primary Care Provider [phone] Bri Rollins RN Unavailable Unavailable Silvio Schulte MD Unavailable [phone] Bri Rollins RN Unavailable Unavailable Werner Swift MD Unavailable Liz Capellan DO Primary Care Provider [phone] Yasmin Restrepo MD Unavailable Reason for Visit * Reason Comments Medication Refill Encounter Details Date Type Department Care Team (Late st Contact Info) Description 11/01/2022 [facility]ill [facility] #2 [place] [address] Keith Craft MD #1 [place] [address] Medication Refill Social History Tobacco Use Types [...] [place] 07/18/22 Office Visit Kerri Kauffman APRN, JAKOB [facility] 06/07/22 Office Visit Keith Craft MD [facility] [...] [place] 07/18/22 Office Visit Kerri Kauffman APRN, DIETARY AIDE TEACHER [facility] [place] [place] 06/07/22 Office Visit Keith Craft MD [...] [facility] [place] 07/18/22 Office Visit Kerri Kauffman, ADULT BASIC STUDIES TEACHER, DIETARY AIDE TEACHER [facility] [place] [place] 06/07/22 Office Visit Keith Craft MD [facility] [place] 03/02/22 Procedure Visit [facility] DIABETIC RETINAL IMAGING [facility] [place] [place] 03/02/22 Office Visit Keith Craft MD [facility] [place] 11/03/21 Office Visit Keith Craft MD [facility] [place] [place] Showing recent visits within past 365 days and meeting all other requirements Future Appointments Date Type Provider Dept 12/10/22 Appointment Keith Craft MD [facility] Showing future appointments within next 90 days and meeting all other requirements Passed - Normal TSH in past 12 months TSH Date Value Ref Range Status 03/02/2022 0.893 0.270 - 4.200 mIU/L Final documented in this encounter Plan of Treatment Upcoming Encounters Date Type Department Care Team (Late st Contact Info) Description 08/27/2024 1:15 PM CDT Office Visit [facility] - Endocrinology - [place] #2 [place] [address] Yasmin Restrepo MD #[address] [phone] 09/02/2024 2:[address] [facility] Respiratory Therapy 1 [place] [address] Werner Swift MD #2 [place] [address] Discharge Disposition: Discharged to home or Selfcare 10/08/2024 1:40 PM CDT Office Visit [facility] - Family Medicine - [place] #2 [place] [address] Liz Capellan, DO 2 [facility] [address] [place] [address] 11/16/2024 1:00 PM CDT Office Visit [facility] - Pulmonology & Sleep Medicine - [place] #2 [place] [address] Werner Swift MD #2 [place] [address] documented as of this encounter [...] Zones/Action plan education. I will notify my Television Journalist if my symptoms fall in the y [...] 19 04/18/2023 04/18/2023 04/28/2023 12:1 6 AM LABORER PULLET FARM COVID - 19 07/13/2023 07/13/2023 07/23/2023 12:1 6 AM LABORER PULLET FARM Respiratory Rule Out - RPA 03/17/2024 03/17/2024 1 3:36 PM CDT COVID - 19 04/27/2024 04/27/2024 04/27/2024 2:19 PM LABORER PULLET FARM Respiratory Rule-Out 07/24/2024 07/24/2024 025 2:29 PM LABORER PULLET FARM COVID - 19 07/24/2024 07/24/2024 07/24/2024 2:29 PM LABORER PULLET FARM Assessment Noted Time PHQ-9 Depression Total Score: 1 03/07/20 21 10:29 AM CDT documented as of this encounter Care Teams Side Stitching Machine Operator Relationship Specialty Start Date End Date Keith Craft MD PCP - General Family Medicine 01/14/19 12/26/23 Liz Capellan DO [address] [id number] PCP - General Family Medicine 12/27/23 Quang Locke DO Gastroenterology 01/18/16 Bri Rollins, RN [place] Television Journalist 03/07/21 05/22/23 [place] [address] [address] 05/25/21 Bri Rollins, RN [place] Nurse Television Journalist 03/07/21 05/23/23 Werner Swift MD #2 [place] [address] Consulting Physician Pulmonary Disease 01/30/22 Yasmin Restrepo MD #[address] [phone] Consulting Physician Endocrinology 07/20/24 documented as of this encounter
--- OUTSIDE RECORDS SUMMARY | 2024-08-16 19:31 | XMS_ITS | Encounter Summary ---
Author Organization [facility] Address [address] [place] [address] Phone Care Team Providers Care Abalone Sheller Name Role Phone Quang Locke DO Unavailable [phone] Keith Craft MD Primary Care Provider [phone] Silvio Schulte MD Unavailable [phone] Werner Swift MD Unavailable Liz Capellan DO Primary Care Provider [phone] Yasmin Restrepo MD Unavailable Reason for Visit * Reason Comments Medication Refill Encounter Details Date Type Department Care Team (Late st Contact Info) Description 10/28/2023 Refill [facility] #2 [place] [address] Werner Swift MD #2 [place] [address] Medication Refill Social History Tobacco [...] often do you attend chur ch or worship services? Never 07/13/2023 Do you belong to any clubs o r organizations such as anabaptist groups, unions, fraternal or athletic groups, or [...] Score - Questions 1-9 0 /0 08/2021 [facility] [place] of Occupat ional Health - Occupational Stress [...] place to sleep or slept in a intermediate (including now)? No 07/13/2023 Education Answer Date [...] Swift MD [facility] [place] [facility] 08/15/23 Office Visit Keith Craft MD [facility] [place] 05/21/23 Office Visit Werner Swift MD [facility] [place] [facility] 05/02/23 Office Visit Keith Craft MD [facility] [place] 04/12/23 Office Visit Keith Craft MD [facility] [place] 01/29/23 Office Visit Werner Swift MD [facility] [place] [facility] 12/10/22 Office Visit Keith Craft MD [facility] [place] Showing recent visits within past 365 days and meeting all other requirements Future Appointments Date Type Provider Dept 11/21/23 Appointment Werner Swift MD [facility] [place] [facility] 12/20/23 Appointment Keith Craft MD [facility] [...] Swift MD [facility] [place] [facility] 08/15/23 Office Visit Keith Craft MD [facility] [place] 05/21/23 Office Visit Werner Swift MD [facility] [place] [facility] 05/02/23 Office Visit Keith Craft MD [facility] [place] 04/12/23 Office Visit Keith Craft MD [facility] 01/29/23 Office Visit Werner Swift MD [facility] [place] [facility] 12/10/22 Office Visit Keith Craft MD [facility] Showing recent visits within past 365 days and meeting all other requirements Future Appointments Date Type Provider Dept 11/21/23 Appointment Werner Swift MD [facility] [place] [facility] 12/20/23 Appointment Keith Craft MD [facility] Showing future appointments within next 90 days and meeting all other requirements documented in this encounter Plan of Treatment Upcoming Encounters Date Type Department Care Team (Late st Contact Info) Description 08/27/2024 1:15 PM CDT Office Visit [facility] - Endocrinology - [place] #2 [place] [address] Yasmin Restrepo MD #[address] [address] 09/02/2024 2:00 PM CDT Appointment [facility] Respiratory Therapy 1 [place] [phone] Werner Swift MD #2 [place] [address] Discharge Disposition: Discharged to home or Selfcare 10/08/2024 1:40 PM CDT Office Visit [facility] - Family Medicine - [place] #2 [place] [address] Liz Capellan, DO [address] [address] 11/16/2024 1:00 PM CDT Office Visit [facility] - Pulmonology & Sleep Medicine [facility] #[address] [place] [address] Werner Swift MD #[address] [place] [address] documented as of this encounter Goals Goal [...] Zones/Action plan education. I will notify my Grid Maker if my symptoms fall in the y [...] 19 04/27/2024 04/27/2024 04/27/2024 2:19 PM RADIO STATION MANAGER Respiratory Rule-Out 07/24/2024 07/24/2024 025 2:29 PM RADIO STATION MANAGER COVID - 19 07/24/2024 07/24/2024 07/24/2024 2:29 PM RADIO STATION MANAGER Assessment Noted Time PHQ-9 Depression Total Score: 1 03/07/20 21 10:29 AM CDT documented as of this encounter Care Teams Abalone Sheller Relationship Specialty Start Date End Date Keith Craft MD PCP - General Family Medicine 01/14/19 12/26/23 Liz Capellan DO 2 [facility] [address] [place] [address] PCP - General Family Medicine 12/27/23 Quang Locke DO Gastroenterology 01/18/16 [place] [address] [address] 05/25/21 Werner Swift MD #2 [place] [address] Consulting Physician Pulmonary Disease 01/30/22 Yasmin Restrepo MD #2 [facility] [address] [place] [address] Consulting Physician Endocrinology 07/20/24 documented as of this encounter
--- OUTSIDE RECORDS SUMMARY | 2024-08-16 19:31 | XMS_ITS | Encounter Summary ---
Author Organization [facility] Address [address] [place] [address] Phone Care Team Providers Care J2Ee Developer Name Role Phone Quang Locke DO Unavailable [phone] Keith Craft MD Primary Care Provider [phone] Bri Rollins RN Unavailable Unavailable Silvio Schulte MD Unavailable [phone] Bri Rollins RN Unavailable Unavailable Wenrer Swift MD Unavailable Liz Capellan DO Primary Care Provider [phone] Yasmin Restrepo MD Unavailable Reason for Visit * Reason Comments Medication Refill Encounter Details Date Type Department Care Team (Late st Contact Info) Description 12/18/2022 Refill [facility] #2 [place] [address] Keith Craft MD #1 [place] [address] Medication Refill Social History Tobacco Use Types [...] PM CDT Name from pharmacy: VITAMIN D [id number] CAPSULE Will file in chart as: ergocalciferol (VITAMIN D) 21123 UNIT Capsule The original prescription was discontinued on 11/01/2022 by Keith Craft MD documented in this encounter Plan of Treatment Upcoming Encounters Date Type Department Care Team (Late st Contact Info) Description 08/27/2024 1:15 PM CDT Office Visit [facility] Endocrinology [facility] #2 [place] [address] Yasmin Restrepo MD #[address] [address] 09/02/2024 2:00 PM CDT [facility]ment [facility] 1 [place] [address] Werner Swift MD #2 [place] [address] Discharge Disposition: Discharged to home or Selfcare 10/08/2024 1:40 PM CDT Office Visit [facility] - Family Medicine [facility] #2 [place] [address] Liz Capellan, DO 2 [facility] [place]. [address] [place] [address] 11/16/2024 1:00 PM CDT Office Visit [facility] - Pulmonology & Sleep Medicine [facility] #2 [place] [address] Werner Swift MD #2 [place] [address] documented as of this encounter Goals Goal [...] Zones/Action plan education. I will notify my Home Health Aide Caregiver if my symptoms fall in the y [...] 19 04/18/2023 04/18/2023 04/28/2023 12:1 6 AM CONTINUOUS MINING MACHINE COAL MINER COVID - 19 07/13/2023 07/13/2023 07/23/2023 12:1 6 AM CONTINUOUS MINING MACHINE COAL MINER Respiratory Rule Out - RPA 03/17/2024 03/17/2024 1 3:36 PM CDT COVID - 19 04/27/2024 04/27/2024 04/27/2024 2:19 PM CONTINUOUS MINING MACHINE COAL MINER Respiratory Rule-Out 07/24/2024 07/24/2024 025 2:29 PM CONTINUOUS MINING MACHINE COAL MINER COVID - 19 07/24/2024 07/24/2024 07/24/2024 2:29 PM CONTINUOUS MINING MACHINE COAL MINER Assessment Noted Time PHQ-9 Depression Total Score: 1 03/07/20 21 10:29 AM CDT documented as of this encounter Care Teams J2Ee Developer Relationship Specialty Start Date End Date Keith Craft MD PCP - General Family Medicine 01/14/19 12/26/23 Liz Capellan DO [address] [address] PCP - General Family Medicine 12/27/23 Quang Locke DO Gastroenterology 01/18/16 Rollins, Bri M, RN [place] Home Health Aide Caregiver 03/07/21 05/22/23 [place] [address] [address] 05/25/21 Bri Rollins RN [place] Nurse Home Health Aide Caregiver 03/07/21 05/23/23 Werner Swift MD #2 [place] [address] Consulting Physician Pulmonary Disease 01/30/22 Yasmin Restrepo MD #[address] [address] Consulting Physician Endocrinology 07/20/24 documented as of this encounter
--- OUTSIDE RECORDS SUMMARY | 2024-08-16 19:31 | XMS_ITS | Encounter Summary ---
Author Organization [facility] Address [address] [place] [address] Phone Care Team Providers Care Municipal Bond Trader Name Role Phone Quang Locke DO Unavailable [phone] Keith Craft MD Primary Care Provider [phone] Silvio Schulte MD Unavailable [phone] Werner Swift MD Unavailable Liz Capellan DO Primary Care Provider [phone] Yasmin Restrepo MD Unavailable Reason for Visit * Reason Comments Medication Refill Encounter Details Date Type Department Care Team (Late st Contact Info) Description 09/30/2023 Refill [facility] Family Medicine [facility] #2 [place] [address] Keith Craft MD #1 [place] [address] Medication Refill Social History Tobacco Use Types Packs/Day Years Used Date Smoking Tobacco: Former Cigarettes 2 50 1 - 03/16/2018 Smokeless Tobacco: Never Comments:Still uses nictoine patches and gum Alcohol Use Standard Drinks/Week Comments No 0 (1 standard drink = 0.6 oz pur e alcohol) [facility] Utilities Answer Date Recorded In the [...] often do you attend chur ch or sikh services? Never 07/13/2023 Do you belong to any clubs o r organizations such as orthodox groups, unions, fraternal or athletic groups, or [...] Score - Questions 1-9 0 /0 08/2021 [facility] [place] of Occupat ional Health - Occupational Stress [...] AM CDT Signed 6 days ago (09/24/2023): Susan Ellipta 100-62.5-25 MCG/ACT AEROSOL POWDER, BREATH ACTIVATED Sig: TAKE ONE (1) PUFF BY INHALATION DAILY. Disp: 60 Each Refills: 2 Signed by: Keith Craft MD documented in this encounter Plan of Treatment Upcoming Encounters Date Type Department Care Team (Late st Contact Info) Description 08/27/2024 1:15 PM CDT Office Visit [facility] Endocrinology [facility] #2 [place] [address] Yasmin Restrepo MD #2 [facility] [address] [place] [address] 09/02/2024 2:00 PM CDT Appointment [facility] Respiratory Therapy 1 [place] [address] Werner Swift MD #2 [place] [address] Discharge Disposition: Discharged to home or Selfcare 10/08/2024 1:40 PM CDT Office Visit [facility] Family Medicine [facility] #2 [place] [address] Liz Capellan, DO 2 [facility] [address] [place] [address] 11/16/2024 1:00 PM CDT Office Visit [facility] - Pulmonology & Sleep Medicine [facility] #2 [place] [address] Werner Swift MD #2 [place] [address] documented as of this encounter Goals Goal [...] Zones/Action plan education. I will notify my Dishwasher Preparer if my symptoms fall in the y [...] - 19 04/27/2024 04/27/2024 04/27/2024 2:19 PM SORTER/ASSAY TECH Respiratory Rule-Out 07/24/2024 07/24/2024 025 2:29 PM SORTER/ASSAY TECH COVID - 19 07/24/2024 07/24/2024 07/24/2024 2:29 PM SORTER/ASSAY TECH Assessment Noted Time PHQ-9 Depression Total Score: 1 03/07/20 21 10:29 AM CDT documented as of this encounter Care Teams Municipal Bond Trader Relationship Specialty Start Date End Date Keith Craft MD PCP - General Family Medicine 01/14/19 12/26/23 Liz Capellan DO 2 [facility] [address] [place] [address] PCP - General Family Medicine 12/27/23 Quang Locke DO Gastroenterology 01/18/16 [place] [address] [address] 05/25/21 Werner Swift MD #2 [place] [address] Consulting Physician Pulmonary Disease 01/30/22 Yasmin Restrepo MD [address] [phone] Consulting Physician Endocrinology 07/20/24 documented as of this encounter
--- OUTSIDE RECORDS SUMMARY | 2024-08-16 19:31 | XMS_ITS | Encounter Summary ---
Author Organization [facility] Address [address] [place] [address] Phone Care Team Providers Care Emergency Medical Technician Name Role Phone Quang Locke DO Unavailable [phone] Keith Craft MD Primary Care Provider [phone] Bri Rollins RN Unavailable Unavailable Silvio Schulte MD Unavailable [phone] Bri Rollins RN Unavailable Unavailable Werner Swift MD Unavailable Liz Capellan DO Primary Care Provider [phone] Yasmin Restrepo MD Unavailable Reason for Visit * Reason Comments Medication Refill Encounter Details Date Type Department Care Team (Late st Contact Info) Description 04/11/2021 Refill [facility] - Family Medicine [facility] #2 [place] [address] Keith Craft MD #1 [place] [address] Medication Refill Social History Tobacco Use Types [...] COVID-19? No / Unsure 04/14/2021 1:20 PM OPTOELECTRONIC TECHNICIAN documented as of this encounter Miscellaneous [...] 2 weeks ago Acute bronchitis, unspecified organism [facility] - Family Medicine - Keith Jenkins MD 2 months ago Pneumonia of right lower lobe due to infectious organism [facility] Family Medicine - Keith Jenkins MD 2 months ago Type 2 diabetes mellitus with diabetic neuropathy, with long-term current use of insulin (HCC) [facility] Family [facility] - Brie Castano PAC 2 months ago Chronic low back pain, unspecified back pain laterality, unspecified whether sciatica present [facility] months [facility] Pneumonia of right upper lobe due to infectious organism [facility] Keith Jenkins MD Upcoming Appointments Future Appointments In 3 days Keith Craft MD [facility], [facility] [employer] PUMP TECHNICIAN - Recent and Past Visits Recent Visits Date Type Provider Dept 03/23/21 Office Visit Keith Craft MD [facility] 02/07/21 Office Visit Keith Craft MD [facility] 02/03/21 Office Visit Brie Denis, [facility] [place] 01/12/21 Office Visit [facility] 10/12/20 [facility] 10/04/20 Office Visit Keith Craft MD [facility] 06/07/20 Office Visit Keith Craft MD [facility] 04/25/20 Office Visit Keith Craft MD [facility] 02/02/20 Office Visit Keith Craft MD [facility] Showing recent visits within past 460 days with a meds authorizing provider and meeting all other requirements Future Appointments Date Type Provider Dept 04/14/21 Appointment Keith [facility] MD [facility] Showing future appointments within next 90 days with a meds authorizing provider and meeting all other requirements diazePAM (VALIUM) 10 MG Tablet [Pharmacy Med Name: DIAZEPAM 10 MG TAB 10 Tablet] 30 Tablet 0 Sig: Take 1 Tablet by mouth daily. There is no refill protocol information for this order ELECTRONIC TECHNICIAN documented in this encounter Plan of Treatment Upcoming Encounters Date Type Department Care Team (Late st Contact Info) Description 08/27/2024 1:15 PM CDT Office Visit [facility] Endocrinology [facility] #2 [place] [facility] [place] [address] Yasmin Restrepo MD #[address] [place] [place] [address] 09/02/2024 2:00 PM CDT [facility] 1 [place] [address] Werner Swift MD #2 [place] [address] Discharge Disposition: Discharged to home or Selfcare 10/08/2024 1:40 PM CDT Office Visit [facility] - Family Medicine - [place] #2 [place] [address] Liz Capellan, DO [address] [address] 11/16/2024 1:00 PM CDT Office Visit [facility] - Pulmonology & Sleep Medicine [facility] #2 [place] [address] Werner Swift MD #2 [place] [address] documented as of this encounter Goals Goal [...] plan education. I will notify my Home Care Manager Rn if my symptoms fall in the y [...] - 19 07/23/2021 07/23/2021 07/24/2021 6:31 AM OPTOELECTRONIC TECHNICIAN COVID - 19 10/19/2021 10/19/2021 10/20/2021 7:45 AM CDT Respiratory Rule Out - RPA 10/19/2021 10/19/2021 0 10/20/2021 2:10 PM CDT Stenotrophomonas maltophilia Comment:Must have a follow up respiratory sample to remove isolation flag. 10/20/2021 10/20/2021 COVID - 19 04/20/2022 04/20/2022 04/30/2022 12:1 8 AM OPTOELECTRONIC TECHNICIAN COVID - 19 07/18/2022 07/18/2022 07/28/2022 12:1 6 AM OPTOELECTRONIC TECHNICIAN COVID - 19 08/21/2022 08/21/2022 08/22/2022 8:31 AM CDT Respiratory Rule Out - RPA 08/21/2022 08/21/2022 0 08/22/2022 3:21 PM CDT COVID - 19 04/18/2023 04/18/2023 04/28/2023 12:1 6 AM OPTOELECTRONIC TECHNICIAN COVID - 19 07/13/2023 07/13/2023 07/23/2023 12:1 6 AM OPTOELECTRONIC TECHNICIAN Respiratory Rule Out - RPA 03/17/2024 03/17/2024 1 3:36 PM CDT COVID - 19 04/27/2024 04/27/2024 04/27/2024 2:19 PM OPTOELECTRONIC TECHNICIAN Respiratory Rule-Out 07/24/2024 07/24/2024 025 2:29 PM OPTOELECTRONIC TECHNICIAN COVID - 19 07/24/2024 07/24/2024 07/24/2024 2:29 PM OPTOELECTRONIC TECHNICIAN Assessment Noted Time PHQ-9 Depression Total Score: 1 03/07/20 21 10:29 AM CDT documented as of this encounter Care Teams Emergency Medical Technician Relationship Specialty Start Date End Date Keith Craft MD PCP - General Family Medicine 01/14/19 12/26/23 Liz Capellan DO [address] [address] PCP - General Family Medicine 12/27/23 Quang Locke DO Gastroenterology 01/18/16 Bri Rollins RN [place] Home Care Manager Rn 03/07/21 05/22/23 [place] [address] [address] 05/25/21 Bri Rollins RN [place] Nurse Home Care Manager Rn 03/07/21 05/23/23 Werner Swift MD #2 [place] [address] Consulting Physician Pulmonary Disease 01/30/22 Yasmin Restrepo MD #[address] [address] Consulting Physician Endocrinology 07/20/24 documented as of this encounter
--- OUTSIDE RECORDS SUMMARY | 2024-08-16 19:31 | XMS_ITS | Encounter Summary ---
Author Organization [facility] Address [address] [place] [address] Phone Care Team Providers Care Insurance Verification Representative Name Role Phone Quang Locke DO Unavailable [phone] Keith Craft MD Primary Care Provider [phone] Bri Rollins RN Unavailable Unavailable Silvio Schulte MD Unavailable [phone] Bri Rollins RN Unavailable Unavailable Werner Swift MD Unavailable Liz Capellan DO Primary Care Provider [phone] Yasmin Restrepo MD Unavailable Reason for Visit * Reason Comments Medication Refill Encounter Details Date Type Department Care Team (Late st Contact Info) Description 09/29/2022 [facility]ill [facility] #2 [place] [address] Keith Craft MD #1 [place] [address] Medication Refill Social History Tobacco Use Types [...] Dept 09/10/22 Office Visit Keith Craft MD [facility] 07/18/22 Office Visit Kerri Kauffman, WASHER MACHINE, COFFEE ROASTER [facility] 06/07/22 Office Visit Keith Craft MD [facility] 03/02/22 Procedure Visit [facility] 03/02/22 Office Visit Keith Craft MD [facility] 11/03/21 Office Visit Keith Craft MD [facility] [place] 10/19/21 Office Visit Keith Craft MD [facility] 10/05/21 Office Visit Keith Craft MD [facility] Showing recent visits within past 365 [...] Craft MD [facility] [place] 07/18/22 Office Visit Kerir Kauffman APRN, JAKOB [facility] [place] 06/07/22 Office Visit Keith Craft MD [facility] [place] 03/02/22 Procedure Visit [facility] 03/02/22 Office Visit Keith Craft MD [facility] [place] 11/03/21 Office Visit Keith Craft MD [facility] [place] 10/19/21 Office Visit Keith Craft MD [facility] [place] 10/05/21 Office Visit Keith Craft MD [facility] [place] 09/08/21 Office Visit Brie Denis PAC [facility] [place] 08/14/21 Office Visit Keith Craft MD [facility] [place] Showing recent visits within past 730 days and meeting all other requirements Future Appointments Date Type Provider Dept 12/10/22 Appointment Keith Craft MD [facility] Showing future appointments within next 90 days and meeting all other requirements Passed - No documented Systolic BP > 200 within past 3 months Passed - Number of active Serotonergic medications less than 3 documented in this encounter Plan of Treatment Upcoming Encounters Date Type Department Care Team (Late st Contact Info) Description 08/27/2024 1:15 PM CDT Office Visit [facility] - Endocrinology - [place] #2 [place] [address] Yasmin Restrepo MD #[address] [address] 09/02/2024 2:00 PM CDT Appointment [facility] Respiratory Therapy 1 [place] [address] Werner Swift MD #2 [place] [address] Discharge Disposition: Discharged to home or Selfcare 10/08/2024 1:40 PM CDT Office Visit [facility] - Family Medicine - [place] #2 [place] [address] Liz Capellan, DO [address] [address] 11/16/2024 1:00 PM CDT Office Visit [facility] - Pulmonology & Sleep Medicine [facility] #2 [place] [address] Werner Swift MD #2 [place] [address] documented as of this encounter Goals Goal [...] Zones/Action plan education. I will notify my Roustabout if my symptoms fall in the y [...] 19 04/18/2023 04/18/2023 04/28/2023 12:1 6 AM RESISTOR WINDER COVID - 19 07/13/2023 07/13/2023 07/23/2023 12:1 6 AM RESISTOR WINDER Respiratory Rule Out - RPA 03/17/2024 03/17/2024 1 3:36 PM CDT COVID - 19 04/27/2024 04/27/2024 04/27/2024 2:19 PM RESISTOR WINDER Respiratory Rule-Out 07/24/2024 07/24/2024 025 2:29 PM RESISTOR WINDER COVID - 19 07/24/2024 07/24/202407/2407/24/2024 2:29 PM RESISTOR WINDER Assessment Noted Time PHQ-9 Depression Total Score: 1 03/07/20 21 10:29 AM CDT documented as of this encounter Care Teams Insurance Verification Representative Relationship Specialty Start Date End Date Keith Craft MD PCP - General Family Medicine 01/14/19 12/26/23 Liz Capellan DO 2 [facility] [address] [place] [address] PCP - General Family Medicine 12/27/23 Quang oLcke DO Gastroenterology 01/18/16 Bri Rollins RN [place] [facility] 03/07/21 05/22/23 [place] [address] [address] 05/25/21 Bri Rollins, [place] Nurse [facility] 03/07/21 05/23/23 Werner Swift MD #2 [place] [address] Consulting Physician Pulmonary Disease 01/30/22 Yasmin Restreop MD #[address] [address] Consulting Physician Endocrinology 07/20/24 documented as of this encounter
--- OUTSIDE RECORDS SUMMARY | 2024-08-16 19:31 | XMS_ITS | Encounter Summary ---
Author Organization [facility] Address [address] [place] [address] Phone Care Team Providers Care Backend Python Developer Name Role Phone Quang Locke DO Unavailable [phone] Keith Craft MD Primary Care Provider [phone] Silvio Schulte MD Unavailable [phone] Werner Swift MD Unavailable Liz Capellan DO Primary Care Provider [phone] Yasmin Restrepo MD Unavailable Reason for Visit * Reason Comments Medication Refill Encounter Details Date Type Department Care Team (Late st Contact Info) Description 10/08/2023 Refill [facility] - Family Medicine [facility] #2 [place] [address] Keith Craft MD #1 [place] [address] Medication Refill Social History Tobacco Use Types Packs/Day Years Used Date Smoking Tobacco: Former Cigarettes 2 50 1 - 03/16/2018 Smokeless Tobacco: Never Comments:Still uses nictoine patches and gum Alcohol Use Standard Drinks/Week Comments No 0 (1 standard drink = 0.6 oz pur e alcohol) [facility] Utilities Answer Date Recorded In [...] any clubs o r organizations such as samaritan groups, unions, fraternal or athletic groups, or [...] Score - Questions 1-9 0 /0 08/2021 [facility] of Occupat ional Health - Occupational Stress [...] 1:15 PM CDT Office Visit [facility] Medical [facility] - Endocrinology [facility] #2 [place] [address] Yasmin Restrepo MD #[address] [phone] 09/02/2024 2:00 PM CDT [facility] 1 [place] [address] Werner Swift MD #2 [place] [address] Discharge Disposition: Discharged to home or Selfcare 10/08/2024 1:40 PM CDT Office Visit [facility] Medical [facility] - Family Medicine [facility] #2 [place] [address] Liz Capellan, DO 2 . [facility] [address] [place] [address] 11/16/2024 1:00 PM CDT Office Visit [facility] - Pulmonology & Sleep Medicine - [facility] #2 [place] [address] Werner Swift MD #2 [place] [address] documented as of this encounter Goals Goal [...] Zones/Action plan education. I will notify my Clean Room Technician if my symptoms fall in the [...] - 19 04/27/2024 04/27/2024 04/27/2024 2:19 PM YEAST PUMPER Respiratory Rule-Out 07/24/2024 07/24/2024 025 2:29 PM YEAST PUMPER COVID - 19 07/24/2024 07/24/2024 07/24/2024 2:29 PM YEAST PUMPER Assessment Noted Time PHQ-9 Depression Total Score: 1 03/07/20 21 10:29 AM CDT documented as of this encounter Care Teams Backend Python Developer Relationship Specialty Start Date End Date Keith Craft MD PCP - General Family Medicine 01/14/19 12/26/23 Liz Capellan DO 2 [facility] [address] [place] [address] PCP - General Family Medicine 12/27/23 Quang Locke DO Gastroenterology 01/18/16 [place] [address] [address] 05/25/21 Werner Swift MD #2 [place] [address] Consulting Physician Pulmonary Disease 01/30/22 Yasmin Restrepo MD #2 [facility] [address] [place] [address] Consulting Physician Endocrinology 07/20/24 documented as of this encounter
--- OUTSIDE RECORDS SUMMARY | 2024-08-16 19:31 | XMS_ITS | Encounter Summary ---
Author Organization [facility] Address [address] [place] [address] Phone Care Team Providers Care College President Name Role Phone Quang Locke DO Unavailable Keith Craft MD Primary Care Provider [phone] Bri Rollins RN Unavailable Unavailable Silvio Schulte MD Unavailable [phone] Bri Rollins RN Unavailable Unavailable Werner Swift MD Unavailable Liz Capellan DO Primary Care Provider Yasmin Restrepo MD Unavailable Reason for Visit * Reason Comments Medication Refill Encounter Details Date Type Department Care Team (Late st Contact Info) Description 12/26/2022 Refill [facility] - Family Medicine [facility] #2 [place] [address] Keith Craft MD #1 [place] [address] Medication Refill Social History Tobacco Use Types [...] AM CDT Name from pharmacy: VITAMIN D [id number] CAPSULE Will file in chart as: ergocalciferol (VITAMIN D) 93378 UNIT Capsule The original prescription was discontinued [...] 67 83 >=60 >=60 >=60 Resulting Agency [facility] documented in this encounter Plan of Treatment Upcoming Encounters Date Type Department Care Team (Late st Contact Info) Description 08/27/2024 1:15 PM CDT Office Visit [facility] Endocrinology [facility] #2 [facility] [place] [address] Yasmin Restrepo MD #[address] [phone] 09/02/2024 2:00 PM CDT Appointment [facility] Respiratory Therapy 1 [place] [address] Werner Swift MD #2 [place] [address] Discharge Disposition: Discharged to home or Selfcare 10/08/2024 1:40 PM CDT Office Visit [facility] Family Medicine [facility] #2 [facility] [address] Liz Capellan, DO [address] [address] 11/16/2024 1:00 PM CDT Office Visit [facility] - Pulmonology & Sleep Medicine [facility] #2 [place] [address] Werner Swift MD #2 [place] [address] documented as of this encounter Goals Goal [...] Zones/Action plan education. I will notify my Form Block Maker if my symptoms fall in the [...] 19 04/18/2023 04/18/2023 04/28/2023 12:1 6 AM TEMPLATE CUTTER COVID - 19 07/13/2023 07/13/2023 07/23/2023 12:1 6 AM TEMPLATE CUTTER Respiratory Rule Out - RPA 03/17/2024 03/17/2024 1 3:36 PM CDT COVID - 19 04/27/2024 04/27/2024 04/27/2024 2:19 PM TEMPLATE CUTTER Respiratory Rule-Out 07/24/2024 07/24/2024 025 2:29 PM TEMPLATE CUTTER COVID - 19 07/24/2024 07/24/2024 07/24/2024 2:29 PM TEMPLATE CUTTER Assessment Noted Time PHQ-9 Depression Total Score: 1 03/07/20 10:29 AM CDT documented as of this encounter Care Teams College President Relationship Specialty Start Date End Date Keith Craft MD PCP - General Family Medicine 01/14/19 12/26/23 Liz Capellan DO 2 [facility] [address] [place] [address] PCP - General Family Medicine 12/27/23 Quang Locke DO Gastroenterology 01/18/16 Bri Rollins, RN [place] Form Block Maker 03/07/21 05/22/23 [place] [address] [address] 05/25/21 Bri Rollins, RN [place] Nurse Form Block Maker 03/07/21 05/23/23 Werner Swift MD #2 [place] [address] Consulting Physician Pulmonary Disease 01/30/22 Yasmin Restrepo MD #2 [facility] [address] [place] [address] Consulting Physician Endocrinology 07/20/24 documented as of this encounter
--- OUTSIDE RECORDS SUMMARY | 2024-08-16 19:31 | XMS_ITS | Encounter Summary ---
Author Organization [facility] Address [address] [place] [address] Phone Care Team Providers Care In Store Demonstrator Name Role Phone Quang Locke DO Unavailable [phone] Keith Craft MD Primary Care Provider [phone] Silvio Schulte MD Unavailable [phone] Werner Swift MD Unavailable Liz Capellan DO Primary Care Provider [phone] Yasmin Restrepo MD Unavailable Reason for Visit * Reason Comments Medication Refill Encounter Details Date Type Department Care Team (Late st Contact Info) Description 10/28/2023 Refill [facility] - Family Medicine [facility] #2 [place] [address] Keith Craft MD #1 [place] [address] Medication Refill Social History Tobacco Use Types Packs/Day Years Used Date Smoking Tobacco: Former Cigarettes 2 50 1 - 03/16/2018 Smokeless Tobacco: Never Comments:Still uses nictoine patches and gum Alcohol Use Standard Drinks/Week Comments No 0 (1 standard drink = 0.6 oz pur e alcohol) [facility] Utilities Answer Date Recorded In the past [...] you attend chur ch or taoist services? Never 07/13/2023 Do you belong to any clubs o r organizations such as spiritism groups, unions, fraternal or athletic groups, or [...] Score - Questions 1-9 0 /0 08/2021 [facility] [place] of Occupat ional Health - Occupational Stress [...] a group home (including now)? No 07/13/2023 Education Answer [...] Dept 12/20/23 Appointment Keith Craft MD [facility] Showing future appointments within next [...] MD [facility] 04/12/23 Office Visit Keith Crfat MD [facility] 12/10/22 Office Visit Keith [...] Visit [facility] - Endocrinology - [place] #2 [place] [address] Yasmin Restrepo MD #[address] [phone] 09/02/2024 2:00 PM CDT [facility] 1 [place] [address] Werner Swift MD #2 [place] [address] Discharge Disposition: Discharged to home or Selfcare 10/08/2024 1:40 PM CDT Office Visit [facility] Medical [facility] - Family Medicine - [place] #2 [place] [address] Liz Capellan, DO 2 [facility] [address] [place] [address] 11/16/2024 1:00 PM CDT Office Visit [facility] - Pulmonology & Sleep Medicine - [place] #2 [place] [address] Werner Swift MD #2 [place] [address] documented as of this encounter Goals Goal [...] Zones/Action plan education. I will notify my Planning Division Superintendent if my symptoms fall in the y [...] - 19 04/27/2024 04/27/2024 04/27/2024 2:19 PM LUMBER STACKER Respiratory Rule-Out 07/24/2024 07/24/2024 025 2:29 PM LUMBER STACKER COVID - 19 07/24/2024 07/24/2024 07/24/2024 2:29 PM LUMBER STACKER Assessment Noted Time PHQ-9 Depression Total Score: 1 03/07/20 21 10:29 AM CDT documented as of this encounter Care Teams In Store Demonstrator Relationship Specialty Start Date End Date Keith Craft MD PCP - General Family Medicine 01/14/19 12/26/23 Liz Capellan DO [address] [id number] PCP - General Family Medicine 12/27/23 Quang Locke DO Gastroenterology 01/18/16 [place] [address] [address] 05/25/21 Werner Swift MD #2 [place] [address] Consulting Physician Pulmonary Disease 01/30/22 Yasmin Restrepo MD #2 [place] [address] Consulting Physician Endocrinology 07/20/24 documented as of this encounter
--- OUTSIDE RECORDS SUMMARY | 2024-08-16 19:31 | XMS_ITS | Encounter Summary ---
Author Organization [facility] Address [address] [place] [address] Phone Care Team Providers Care Appliance Line Assembler Name Role Phone Quang Locke DO Unavailable [phone] Keith Craft MD Primary Care Provider [phone] Bri Rollins RN Unavailable Unavailable Silvio Schulte MD Unavailable [phone] Bri Rollins RN Unavailable Unavailable Werner Swift MD Unavailable Liz Capellan DO Primary Care Provider [phone] Yasmin Restrepo MD Unavailable Reason for Visit * Reason Comments Medication Refill Encounter Details Date Type Department Care Team (Late st Contact Info) Description 11/29/2022 Refill [facility] Family Medicine [facility] #2 [place] [address] Keith Craft MD #1 [place] [address] Medication Refill Social History Tobacco Use Types [...] [facility] 07/18/22 Office Visit Kerri Kauffman, COMPANY MINER BLASTING, JAKOB [facility] Ref[facility] Prescriptions Disp Refills ergocalciferol (VITAMIN D) 13512 UNIT Capsule [Pharmacy Med Name: VITAMIN D [id number] CAPSULE] 12 Capsule 0 Sig: TAKE ONE CAPSULE BY MOUTH ONE TIME WEEKLY Vitamin Supplements (Adult) Protocol Failed - 11/29/2022 11:57 AM Failed - Active on medication list Failed - Vitamin D less than 1.25mg Passed - Visit with relevant provider in past 12 months or upcoming 90 days Recent Visits Date Type Provider Dept 09/10/22 Office Visit Keith Craft MD [facility] 07/18/22 Office Visit Kerri Kauffman, COMPANY MINER BLASTING, ACQUISITION MARKETING MANAGER [facility] 06/07/22 Office Visit Keith Craft MD [facility] 03/02/22 Procedure Visit [facility] 03/[facility]/22 Office Visit Keith Craft MD [facility] Showing recent visits within past 365 days and meeting all other requirements Future Appointments Date Type Provider Dept 12/10/22 Appointment Keith Craft MD [facility] Showing future appointments within next 90 days and meeting all other requirements * Telephone Encounter - Gloria Cornejo RN - 11/30/2022 8:21 AM CDT Name from pharmacy: VITAMIN D [id number] CAPSULE Will file in chart as: ergocalciferol (VITAMIN D) 66314 UNIT Capsule The original prescription was discontinued on 11/01/2022 by Keith Craft MD documented in this encounter Plan of Treatment Upcoming Encounters Date Type Department Care Team (Late st Contact Info) Description 08/27/2024 1:15 PM CDT [facility] - Endocrinology - [place] #2 [place] [address] Yasmin Restrepo MD #[address] [address] 09/02/2024 2:00 PM CDT [facility] 1 [facility] [place] [address] Werner Swift MD #2 [place] [address] Discharge Disposition: Discharged to home or Selfcare 10/08/2024 1:40 PM CDT Office [facility] Medical [facility] - Family Medicine - [place] #2 [place] [address] Liz Capellan, DO [address] [address] 11/16/2024 1:00 PM CDT Office Visit [facility] - Pulmonology & Sleep Medicine [facility] #2 [place] [address] Werner Swift MD #2 [place] [address] documented as of this encounter Goals Goal [...] Zones/Action plan education. I will notify my Drug Room Clerk if my symptoms fall in the [...] 19 04/18/2023 04/18/2023 04/28/2023 12:1 6 AM GELATIN PLANT SUPERVISOR COVID - 19 07/13/2023 07/13/2023 07/23/2023 12:1 6 AM GELATIN PLANT SUPERVISOR Respiratory Rule Out - RPA 03/17/2024 03/17/2024 1 3:36 PM CDT COVID - 19 04/27/2024 04/27/2024 04/27/2024 2:19 PM GELATIN PLANT SUPERVISOR Respiratory Rule-Out 07/24/2024 07/24/2024 025 2:29 PM GELATIN PLANT SUPERVISOR COVID - 19 07/24/2024 07/24/2024 07/24/2024 2:29 PM GELATIN PLANT SUPERVISOR Assessment Noted Time PHQ-9 Depression Total Score: 1 03/07/20 21 10:29 AM CDT documented as of this encounter Care Teams Appliance Line Assembler Relationship Specialty Start Date End Date Keith Craft MD PCP - General Family Medicine 01/14/19 12/26/23 Liz Capellan DO [address] [address] PCP - General Family Medicine 12/27/23 Quang Locke DO Gastroenterology 01/18/16 Bri Rollins, RN [place] Drug Room Clerk 03/07/21 05/22/23 [place] [address] [address] 05/25/21 Bri Rollins RN [place] Nurse Drug Room Clerk 03/07/21 05/23/23 Werner Swift MD #2 [place] [address] Consulting Physician Pulmonary Disease 01/30/22 Yasmin Restrepo MD #[address] [address] Consulting Physician Endocrinology 07/20/24 documented as of this encounter
--- OUTSIDE RECORDS SUMMARY | 2024-08-16 19:31 | XMS_ITS | Encounter Summary ---
Author Organization [facility] Address [address] [place] [address] Phone Care Team Providers Care Curtain Stretcher Assembler Name Role Phone Quang Locke DO Unavailable [phone] Keith Craft MD Primary Care Provider [phone] Silvio Schulte MD Unavailable [phone] Werner Swift MD Unavailable Liz Capellan DO Primary Care Provider [phone] Yasmin Restrepo MD Unavailable Reason for Visit * Reason Comments Medication Refill Encounter Details Date Type Department Care Team (Late st Contact Info) Description 09/30/2023 Refill [facility] Family Medicine [facility] #2 [place] [address] Keith Craft MD #1 [place] [address] Medication Refill Social History Tobacco Use Types Packs/Day Years Used Date Smoking Tobacco: Former Cigarettes 2 50 1 - 03/16/2018 Smokeless Tobacco: Never Comments:Still uses nictoine patches and gum Alcohol Use Standard Drinks/Week Comments No 0 (1 standard drink = 0.6 oz pur e alcohol) [facility] Utilities Answer Date Recorded In the [...] often do you attend chur ch or confucianist services? Never 07/13/2023 Do you belong to any clubs o r organizations such as latter day groups, unions, fraternal or athletic groups, or [...] Score - Questions 1-9 0 /0 08/2021 [facility] Occupat ional Health - Occupational Stress [...] place to sleep or slept in a correction (including now)? No 07/13/2023 Education Answer Date [...] Visit [facility] - Endocrinology - [place] #2 [place] [address] Yasmin Restrepo MD #2 [facility] [address] [place] [address] 09/02/2024 2:00 PM CDT [facility] 1 [place] [address] Werner Swift MD #2 [place] [address] Discharge Disposition: Discharged to home or Selfcare 10/08/2024 1:40 PM CDT Office Visit [facility] - Family Medicine [facility] #2 [place] [address] Liz Capellan, DO [address] [address] 11/16/2024 1:00 PM CDT Office Visit [facility] - Pulmonology & Sleep Medicine [facility]3] #2 [place] [address] Werner Swift MD #2 [place] [address] documented as of this encounter Goals Goal [...] plan education. I will notify my Manager Agriculture if my symptoms fall in the y [...] - 19 04/27/2024 04/27/2024 04/27/2024 2:19 PM PROFESSOR OF CHEMISTRY Respiratory Rule-Out 07/24/2024 07/24/2024 025 2:29 PM PROFESSOR OF CHEMISTRY COVID - 19 07/24/2024 07/24/2024 07/24/2024 2:29 PM PROFESSOR OF CHEMISTRY Assessment Noted Time PHQ-9 Depression Total Score: 1 03/07/20 21 10:29 AM CDT documented as of this encounter Care Teams Curtain Stretcher Assembler Relationship Specialty Start Date End Date Keith Craft MD PCP - General Family Medicine 01/14/19 12/26/23 Liz Capellan DO [address] [address] PCP - General Family Medicine 12/27/23 Quang Locke DO Gastroenterology 01/18/16 [place] [address] [address] 05/25/21 Werner Swift MD #2 [place] [address] Consulting Physician Pulmonary Disease 01/30/22 Yasmin Restrepo MD #[address] [address] Consulting Physician Endocrinology 07/20/24 documented as of this encounter
--- OUTSIDE RECORDS SUMMARY | 2024-08-16 19:31 | XMS_ITS | Encounter Summary ---
Author Organization [facility] Address [address] [place] [address] Phone Care Team Providers Care Tablet Technician Name Role Phone Quang Locke DO Unavailable Keith Craft MD Primary Care Provider [phone] Silvio Schulte MD Unavailable [phone] Werner Swift MD Unavailable Liz Capellan DO Primary Care Provider [phone] Yasmin Restrepo MD Unavailable Reason for Visit * Reason Comments Medication Refill Encounter Details Date Type Department Care Team (Late st Contact Info) Description 09/04/2023 Refill [facility] - Family Medicine [facility] #2 [place] [address] Werner Swift MD #2 [place] [address] Medication Refill Social History Tobacco Use Types Packs/Day Years Used Date Smoking Tobacco: Former Cigarettes 2 50 1 - 03/16/2018 Smokeless Tobacco: Never Comments:Still uses nictoine patches and gum Alcohol Use Standard Drinks/Week Comments No 0 (1 standard drink = 0.6 oz pur e alcohol) [facility] Utilities Answer Date Recorded In the [...] Score - Questions 1-9 0 /0 08/2021 [facility] of Occupat ional Health - Occupational Stress [...] Dept 08/20/23 Office Visit Werner Swift MD [facility] [place] 08/15/23 Office Visit Keith Craft MD [facility] 05/21/23 Office Visit Werner Swift MD [facility] [place] [facility] 05/02/23 Office Visit Keith Craft MD [facility] 04/12/23 Office Visit Keith Craft MD [facility] 01/29/23 Office Visit Werner Swift MD [facility] [place] [facility] 12/10/22 Office Visit Keith Craft MD [facility] 10/25/22 Office Visit Werner Swift MD [facility] [place] [facility] 09/10/22 [facility] recent visits within past 365 days and meeting all other requirements Future Appointments Date Type Provider Dept 11/21/23 Appointment Werner Swift MD [facility] [place] [facility] Showing future appointments within next 90 days and meeting all other requirements documented in this encounter Plan of Treatment Upcoming Encounters Date Type Department Care Team (Late st Contact Info) Description 08/27/2024 1:15 PM CDT Office Visit [facility] - Endocrinology - [place] #2 [place] [address] Yasmin Restrepo MD #[address] [address] 09/02/2024 2:00 PM CDT [facility] 1 [facility] [place] [address] Werner Swift MD #2 [place] [address] Discharge Disposition: Discharged to home or Selfcare 10/08/2024 1:40 PM CDT Office Visit [facility] Medical [facility] - Family Medicine - [place] #2 [place] [address] Liz Capellan, DO [address] [address] 11/16/2024 1:00 PM CDT Office Visit [facility] - Pulmonology & Sleep Medicine [facility] #2 [place] [address] Werner Swift MD #2 [place] [address] documented as of this encounter Goals Goal [...] Zones/Action plan education. I will notify my Surg Tech if my symptoms fall in the y [...] - 19 04/27/2024 04/27/2024 04/27/2024 2:19 PM RELIEF PHARMACIST Respiratory Rule-Out 07/24/2024 07/24/2024 025 2:29 PM RELIEF PHARMACIST COVID - 19 07/24/2024 07/24/2024 07/24/2024 2:29 PM RELIEF PHARMACIST Assessment Noted Time PHQ-9 Depression Total Score: 1 03/07/20 21 10:29 AM CDT documented as of this encounter Care Teams Tablet Technician Relationship Specialty Start Date End Date Keith Craft MD PCP - General Family Medicine 01/14/19 12/26/23 Liz Capellan DO [address] [address] PCP - General Family Medicine 12/27/23 Quang Locke DO Gastroenterology 01/18/16 [place] [address] [address] 05/25/21 Werner Swift MD #2 [place] [address] Consulting Physician Pulmonary Disease 01/30/22 Yasmin Restrepo MD #2 [facility] [address] Consulting Physician Endocrinology 07/20/24 documented as of this encounter
--- OUTSIDE RECORDS SUMMARY | 2024-08-16 19:31 | XMS_ITS | Encounter Summary ---
Author Organization [facility] Address [address] [place] [address] Phone Care Team Providers Care Hammer Shop Supervisor Name Role Phone Quang Locke DO Unavailable [phone] Keith Craft MD Primary Care Provider [phone] Silvio Schulte MD Unavailable [phone] Werner Swift MD Unavailable Liz Capellan DO Primary Care Provider [phone] Yasmin Restrepo MD Unavailable Reason for Visit * Reason Comments Medication Refill Encounter Details Date Type Department Care Team (Late st Contact Info) Description 10/08[facility] [address] [place] [address] Werner Swift MD #2 [place] [address] Medication Refill Social History Tobacco Use Types Packs/Day Years Used Date Smoking Tobacco: Former Cigarettes 2 50 1 - 03/16/2018 Smokeless Tobacco: Never Comments:Still uses nictoine patches and gum Alcohol Use Standard Drinks/Week Comments No 0 (1 standard drink = 0.6 oz pur e alcohol) [facility] Utilities Answer Date Recorded In the [...] any clubs o r organizations such as congregation groups, unions, fraternal or athletic groups, or [...] Score - Questions 1-9 0 /0 08/2021 [facility] [place] of Occupat ional Health - Occupational Stress [...] 08/27/2024 1:15 PM CDT [facility] - [facility]inology [facility] #2 [place] [address] Yasmin Restrepo MD #[address] [address] 09/02/2024 2:00 PM CDT Appointment [facility] Respiratory Therapy 1 [place] [address] Werner Swift MD #2 [place] [address] Discharge Disposition: Discharged to home or Selfcare 10/08/2024 1:40 PM CDT Office Visit [facility] Family Medicine [facility] #2 [place] [address] Liz Capellan, DO [address] [address] 11/16/2024 1:00 PM CDT Office Visit [facility] - Pulmonology & Sleep Medicine [facility] #2 [place] [address] Werner Swift MD #2 [place] [address] documented as of this encounter Goals Goal [...] Zones/Action plan education. I will notify my Water Softener Servicer And Installer if my symptoms fall in the y [...] - 19 04/27/2024 04/27/2024 04/27/2024 2:19 PM FLIPPING MACHINE OPERATOR Respiratory Rule-Out 07/24/2024 07/24/2024 025 2:29 PM FLIPPING MACHINE OPERATOR COVID - 19 07/24/2024 07/24/2024 07/24/2024 2:29 PM FLIPPING MACHINE OPERATOR Assessment Noted Time PHQ-9 Depression Total Score: 1 03/07/20 21 10:29 AM CDT documented as of this encounter Care Teams Hammer Shop Supervisor Relationship Specialty Start Date End Date Keith Craft MD PCP - General Family Medicine 01/14/19 12/26/23 Liz Capellan DO 2 [facility] [address] [place] [address] PCP - General Family Medicine 12/27/23 Quang Locke DO Gastroenterology 01/18/16 [place] [address] [address] 05/25/21 Werner Swift MD #2 [place] [address] Consulting Physician Pulmonary Disease 01/30/22 Yasmin Restrepo MD #[address] [address] Consulting Physician Endocrinology 07/20/24 documented as of this encounter
--- OUTSIDE RECORDS SUMMARY | 2024-08-16 19:31 | XMS_ITS | Encounter Summary ---
Author Organization [facility] Address [address] [place] [address] Phone Care Team Providers Care Laundry Press Operator Name Role Phone Quang Locke DO Unavailable [phone] Keith Craft MD Primary Care Provider [phone] Silvio Schulte MD Unavailable [phone] Werner Swift MD Unavailable Liz Capellan DO Primary Care Provider [phone] Yasmin Restrepo MD Unavailable Reason for Visit * Reason Onset Date Comments Cough 09/23/2023 Encounter Details Date Type Department Care Team (Late st Contact Info) Description 09/23/2023 Nurse Triage [facility] [place] #2 [place] [address] Keith Craft MD #1 [place] [address] Cough Social History Tobacco Use Types Packs/Day Years Used Date Smoking Tobacco: Former Cigarettes 2 50 1 - 03/16/2018 Smokeless Tobacco: Never Comments:Still uses nictoine patches and gum Alcohol Use Standard Drinks/Week Comments No 0 (1 standard drink = 0.6 oz pur e alcohol) [facility] Utilities Answer Date Recorded In the [...] often do you attend chur ch or adventist services? Never 07/13/2023 Do you belong to [...] Score - Questions 1-9 0 /0 08/2021 [facility] [place] of Occupat ional Health - Occupational Stress [...] Recommendation: Patient is requesting phone call or iVantage Health Analyticshart message regarding if medication is sent to [...] Visit [facility] - Endocrinology - [place] #2 [place] [address] Yasmin Restrepo MD #[address] [address] 09/02/2024 2:00 PM CDT Appointment [facility] Respiratory Therapy 1 [place] [address] Werner Swift MD #2 [place] [address] Discharge Disposition: Discharged to home or Selfcare 10/08/2024 1:40 PM CDT Office Visit [facility] Family Medicine [facility] #2 [place] [address] Liz Capellan, DO [address] [address] 11/16/2024 1:00 PM CDT Office Visit [facility] - Pulmonology & Sleep Medicine [facility] #2 [place] [address] Werner Swift MD #2 [place] [address] documented as of this encounter Goals Goal [...] Zones/Action plan education. I will notify my Floor Director if my symptoms fall in the [...] - 19 04/27/2024 04/27/2024 04/27/2024 2:19 PM LOFT WORKER HEAD Respiratory Rule-Out 07/24/2024 07/24/2024 025 2:29 PM LOFT WORKER HEAD COVID - 19 07/24/2024 07/24/2024 07/24/2024 2:29 PM LOFT WORKER HEAD Assessment Noted Time PHQ-9 Depression Total Score: 1 03/07/20 21 10:29 AM CDT documented as of this encounter Care Teams Laundry Press Operator Relationship Specialty Start Date End Date Keith Craft MD PCP - General Family Medicine 01/14/19 12/26/23 Liz Capellan DO 2 [place] [address] PCP - General Family Medicine 12/27/23 Quang Locke DO Gastroenterology 01/18/16 [place] [address] [address] 05/25/21 Werner Swift MD #2 [place] [address] Consulting Physician Pulmonary Disease 01/30/22 Yasmin Restrepo MD #[address] [address] Consulting Physician Endocrinology 07/20/24 documented as of this encounter
--- OUTSIDE RECORDS SUMMARY | 2024-08-16 19:31 | XMS_ITS | Encounter Summary ---
Author Organization [facility] Address [address] [place] [address] Phone Care Team Providers Care Medical Technologist Chemistry Name Role Phone Quang Locke DO Unavailable [phone] Keith Craft MD Primary Care Provider [phone] Silvio Schulte MD Unavailable [phone] Werner Swift MD Unavailable Liz Capellan DO Primary Care Provider [phone] Yasmin Restrepo MD Unavailable Reason for Visit * Reason Comments Medication Refill Encounter Details Date Type Department Care Team (Late st Contact Info) Description 09/16/2023 Refill [facility] - Family [facility] #2 [place] [address] Keith Craft MD #1 [place] [address] Medication Refill Social History Tobacco Use Types Packs/Day Years Used Date Smoking Tobacco: Former Cigarettes 2 50 1 - 03/16/2018 Smokeless Tobacco: Never Comments:Still uses nictoine patches and gum Alcohol Use Standard Drinks/Week Comments No 0 (1 standard drink = 0.6 oz pur e alcohol) [facility] Utilities Answer Date Recorded In [...] often do you attend chur ch or methodist services? Never 07/13/2023 Do you belong to any clubs o r organizations such as adventist groups, unions, fraternal or athletic groups, or [...] Score - Questions 1-9 0 /0 08/2021 [facility] [place] of Occupat ional Health - Occupational Stress [...] 1:15 PM CDT Office Visit [facility] - Endocrinology - [place] #2 [place] [address] Yasmin Restrepo MD #[address] [address] 09/02/2024 2:00 PM CDT Appointment [facility] Respiratory Therapy 1 [place] [address] Werner Swift MD #2 [place] [address] Discharge Disposition: Discharged to home or Selfcare 10/08/2024 1:40 PM CDT Office Visit [facility] Family [facility] #2 [place] [address] Liz Capellan, DO [address] [address] 11/16/2024 1:00 PM CDT Office Visit [facility] - Pulmonology & Sleep Medicine [facility] #2 [place] [address] Werner Swift MD #2 [place] [address] documented as of this encounter Goals Goal [...] plan education. I will notify my Gas Desulfurizer if my symptoms fall in the y ellow zone . I will consider receiving an influenza and pneumonia vaccination, if applicable. -I will call the office if I experience any symptoms listed above to discuss at home management options. documented as of this encounter Visit Diagnoses Diagnosis Type 2 diabetes mellitus with diabetic neuropathy, with long-term current use of insulin ([facility]) documented in this encounter Additional Health Concerns Infection Onset Date Last Indicated Resolved Time Stenotrophomonas maltophilia Comment:Must have a follow up respiratory sample to remove isolation flag. 10/20/2021 10/20/2021 Respiratory Rule Out - RPA 03/17/2024 03/17/2024 1 3:36 PM CDT COVID - 19 04/27/2024 04/27/2024 04/27/2024 2:19 PM LOGISTICS TEAM LEADER Respiratory Rule-Out 07/24/2024 07/24/2024 025 2:29 PM LOGISTICS TEAM LEADER COVID - 19 07/24/2024 07/24/2024 07/24/2024 2:29 PM LOGISTICS TEAM LEADER Assessment Noted Time PHQ-9 Depression Total Score: 1 03/07/20 21 10:29 AM CDT documented as of this encounter Care Teams Medical Technologist Chemistry Relationship Specialty Start Date End Date Keith Craft MD PCP - General Family Medicine 01/14/19 12/26/23 Liz Capellan DO 2 [facility] [address] [facility] [address] [place] [address] PCP - General Family Medicine 12/27/23 Quang Locke DO Gastroenterology 01/18/16 [place] [address] [address] 05/25/21 Werner Swift MD #2 [place] [address] Consulting Physician Pulmonary Disease 01/30/22 Yasmin Restrepo MD [address] [address] Consulting Physician Endocrinology 07/20/24 documented as of this encounter
--- OUTSIDE RECORDS SUMMARY | 2024-08-16 19:31 | XMS_ITS | Encounter Summary ---
Author Organization [facility] Address [address] [place] [address] Phone Care Team Providers Care Supervisor Electronics Inspection Name Role Phone Quang Locke DO Unavailable [phone] Keith Craft MD Primary Care Provider [phone] Silvio Schulte MD Unavailable [phone] Werner Swift MD Unavailable Liz Capellan DO Primary Care Provider [phone] Yasmin Restrepo MD Unavailable Reason for Visit * Reason Comments Medication Refill Encounter Details Date Type Department Care Team (Late st Contact Info) Description 11/11/2023 Refill [facility] - Family Medicine [facility] #2 [place] [address] Keith Craft MD #1 [place] [address] Medication Refill Social History Tobacco Use Types [...] often do you attend chur ch or yazdanism services? Never 07/13/2023 Do you belong to [...] Total Score - Questions 1-9 4 10/25 [facility] of Occupat ional Health - Occupational Stress [...] place to sleep or slept in a retirement (including now)? No 07/13/2023 Education Answer Date [...] Type Provider Dept 11/08/23 Office Visit Brie Denis, NICO[facility] [place] 08/15/23 Office Visit Keith Craft MD [facility] 05/02/23 Office Visit Keith Craft MD [facility] 04/12/23 Office Visit Keith Craft MD [facility] [place] 12/10/22 [facility] Show[facility] recent visits within past 365 days and meeting all other requirements Future Appointments Date Type Provider Dept 12/27/23 Appointment Liz Capellan, [facility] Showing future appointments within next 90 days and meeting all other requirements documented in this encounter Plan of Treatment Upcoming Encounters Date Type Department Care Team (Late st Contact Info) Description 08/27/2024 1:15 PM CDT Office Visit [facility] Medical [facility] - Endocrinology [facility] #2 [place] [address] Yasmin Restrepo MD #[address] [address] 09/02/2024 2:00 PM CDT [facility] 1 [place] [address] Werner Swift MD #2 [place] [address] Discharge Disposition: Discharged to home or Selfcare 10/08/2024 1:40 PM CDT Office Visit [facility] Medical [facility] - Family Medicine [facility] #2 [place] [address] Liz Capellan, DO 2 [address] [place] [address] 11/16/2024 1:00 PM CDT Office Visit [facility] - Pulmonology & Sleep Medicine - [place] #[address] [place] [address] Werner Swift MD #2 [place] [address] documented as of this encounter Goals Goal [...] Zones/Action plan education. I will notify my Process Safety Manager if my symptoms fall in the [...] - 19 04/27/2024 04/27/2024 04/27/2024 2:19 PM BASIN FINISH OPERATOR TIG WELDER Respiratory Rule-Out 07/24/2024 07/24/2024 025 2:29 PM BASIN FINISH OPERATOR TIG WELDER COVID - 19 07/24/2024 07/24/2024 07/24/2024 2:29 PM BASIN FINISH OPERATOR TIG WELDER Assessment Noted Time PHQ-9 Depression Total Score: 4 11/08/19 9:33 AM CDT documented as of this encounter Care Teams Supervisor Electronics Inspection Relationship Specialty Start Date End Date Keith Craft MD PCP - General Family Medicine 01/14/19 12/26/23 Liz Capellan DO 2 [facility] [address] [id number] PCP - General Family Medicine 12/27/23 Quang Locke DO Gastroenterology 01/18/16 [place] [address] [address] 05/25/21 Werner Swift MD #2 [place] [address] Consulting Physician Pulmonary Disease 01/30/22 Yasmin Restrepo MD #[address] [phone] Consulting Physician Endocrinology 07/20/24 documented as of this encounter
--- OUTSIDE RECORDS SUMMARY | 2024-08-16 19:31 | XMS_ITS | Encounter Summary ---
Author Organization [facility] Address [address] [place] [address] Phone Care Team Providers Care Glove Brusher Name Role Phone Quang Locke DO Unavailable [phone] Keith Craft MD Primary Care Provider [phone] Silvio Schulte MD Unavailable [phone] Werner Swift MD Unavailable Liz Capellan DO Primary Care Provider [phone] Yasmin Restrepo MD Unavailable Reason for Visit * Reason Comments Medication Refill Encounter Details Date Type Department Care Team (Late st Contact Info) Description 10/29/2023 Refill [facility] - Family Medicine [facility] #2 [place] [address] Keith Cratf MD #1 [place] [address] Medication Refill Social History Tobacco Use Types [...] often do you attend chur ch or hindu services? Never 07/13/2023 Do you belong to any clubs o r organizations such as islam groups, unions, fraternal or athletic groups, or [...] Score - Questions 1-9 0 /0 08/2021 [facility] [place] of Occupat ional Health - Occupational Stress [...] [place] 05/02/23 Office Visit Keith Craft MD [facility] [place] Showing recent visits within past 182 days and meeting all other requirements Future Appointments Date Type Provider Dept 12/20/23 Appointment Keith Craft MD [facility] Showing future appointments within [...] Description 08/27/2024 1:15 PM CDT Office Visit [facility] Medical [facility] - Endocrinology [facility] #2 [place] [address] Yasmin Restrepo MD #[address] [address] 09/02/2024 2:00 PM CDT Appointment [facility] Respiratory Therapy 1 [place] [address] Werner Swift MD #2 [place] [address] Discharge Disposition: Discharged to home or Selfcare 10/08/2024 1:40 PM CDT Office Visit [facility] Medical [facility] - Family Medicine [facility] #2 [place] [address] Liz Capellan, DO [address] [address] 11/16/2024 1:00 PM CDT [facility] - Pulmonology & Sleep Medicine [facility] #2 [place] [address] Werner Swift MD #2 [facility] [place] [address] documented as of this encounter Goals Goal [...] Zones/Action plan education. I will notify my Vice President Integrated if my symptoms fall in the y [...] - 19 04/27/2024 04/27/2024 04/27/2024 2:19 PM DECAL CUTTER Respiratory Rule-Out 07/24/2024 07/24/2024 025 2:29 PM DECAL CUTTER COVID - 19 07/24/2024 07/24/2024 07/24/2024 2:29 PM DECAL CUTTER Assessment Noted Time PHQ-9 Depression Total Score: 1 03/07/20 10:29 AM CDT documented as of this encounter Care Teams Glove Brusher Relationship Specialty Start Date End Date Keith Craft MD PCP - General Family Medicine 01/14/19 12/26/23 Liz Capellan DO [address] [address] PCP - General Family Medicine 12/27/23 Quang Locke DO Gastroenterology 01/18/16 [place] [address] [address] 05/25/21 Werner Swift MD #2 [place] [address] Consulting Physician Pulmonary Disease 01/30/22 Yasmin Restrepo MD #[address] [address] Consulting Physician Endocrinology 07/20/24 documented as of this encounter
--- OUTSIDE RECORDS SUMMARY | 2024-08-16 19:31 | XMS_ITS | Encounter Summary ---
Author Organization [facility] Address [address] [place] [address] Phone Care Team Providers Care Director Project Management Name Role Phone Quang Locke DO Unavailable [phone] Keith Craft MD Primary Care Provider Silvio Schulte MD Unavailable [phone] Werner Swift MD Unavailable Liz Capellan DO Primary Care Provider Yasmin Restrepo MD Unavailable Reason for Visit * Reason Comments Medication Refill Encounter Details Date Type Department Care Team (Late st Contact Info) Description 09/09/2023 [facility]ill [facility] Medicine [facility] #2 [place] [address] Keith Craft MD #1 [place] [address] Medication Refill Social History Tobacco Use Types Packs/Day Years Used Date Smoking Tobacco: Former Cigarettes 2 50 1 - 03/16/2018 Smokeless Tobacco: Never Comments:Still uses nictoine patches and gum Alcohol Use Standard Drinks/Week Comments No 0 (1 standard drink = 0.6 oz pur e alcohol) [facility] Utilities Answer Date Recorded In the [...] often do you attend chur ch or protestant services? Never 07/13/2023 Do you belong to any clubs o r organizations such as orthodoxy groups, unions, fraternal or athletic groups, or [...] Score - Questions 1-9 0 /0 08/2021 [facility] [place] of Occupat ional Health - Occupational Stress [...] [place] 04/12/23 Office Visit Keith Craft MD [facility] Showing recent visits within past 182 [...] Description 08/27/2024 1:15 PM CDT Office Visit [facility] Medical Group - Endocrinology - [place] #2 [place] [address] Yasmin Restrepo MD #[address] [address] 09/02/2024 2:00 PM CDT [facility] Res[facility] 1 [place] [address] Werner Swift MD #2 [place] [address] Discharge Disposition: Discharged to home or Selfcare 10/08/2024 1:40 PM CDT Office Visit [facility] - Family Medicine [facility] #2 [place] [address] Liz Capellan, DO [address] [address] 11/16/2024 1:00 PM CDT Office Visit [facility] - Pulmonology & Sleep Medicine [facility] #2 [place] [address] Werner Swift MD #2 [place] [address] documented as of this encounter Goals Goal [...] Zones/Action plan education. I will notify my Freelance Programmer/App Developer if my symptoms fall in the [...] 19 04/27/2024 04/27/2024 04/27/2024 2:19 PM LABORER DRYING DEPARTMENT Respiratory Rule-Out 07/24/2024 07/24/2024 025 2:29 PM LABORER DRYING DEPARTMENT COVID - 19 07/24/2024 07/24/2024 07/24/2024 2:29 PM LABORER DRYING DEPARTMENT Assessment Noted Time PHQ-9 Depression Total Score: 1 03/07/20 21 10:29 AM CDT documented as of this encounter Care Teams Director Project Management Relationship Specialty Start Date End Date Keith Craft MD PCP - General Family Medicine 01/14/19 12/26/23 Liz Capellan DO 2 [place] [address] PCP - General Family Medicine 12/27/23 Quang Locke DO Gastroenterology 01/18/16 [place] [address] [address] 05/25/21 Werner Swift MD #2 [place] [address] Consulting Physician Pulmonary Disease 01/30/22 Yasmin Restrepo MD #[address] [address] Consulting Physician Endocrinology 07/20/24 documented as of this encounter
--- OUTSIDE RECORDS SUMMARY | 2024-08-16 19:31 | XMS_ITS | Encounter Summary ---
Author Organization [facility] Address [address] [place] [address] Phone Care Team Providers Care Commercial Shrimping Captain Name Role Phone Quang Locke DO Unavailable [phone] Keith Craft MD Primary Care Provider [phone] Silvio Schulte MD Unavailable [phone] Werner Swift MD Unavailable Liz Capellan DO Primary Care Provider [phone] Yasmin Restrepo MD Unavailable Reason for Visit * Reason Comments Medication Refill Encounter Details Date Type Department Care Team (Late st Contact Info) Description 11/06/2023 Refill [facility] - Family Medicine [facility] #2 [place] [address] Keith Craft MD #1 [place] [address] Medication Refill Social History Tobacco Use Types Packs/Day Years Used Date Smoking Tobacco: Former Cigarettes 2 50 1 - 03/16/2018 Smokeless Tobacco: Never Comments:Still uses nictoine patches and gum Alcohol Use Standard Drinks/Week Comments No 0 (1 standard drink = 0.6 oz pur e alcohol) [facility] Utilities Answer Date Recorded In [...] often do you attend chur ch or alevism services? Never 07/13/2023 Do you belong to [...] Total Score - Questions 1-9 4 10/25 [facility] [place] of Occupat ional Health - Occupational Stress [...] PM CDT Office Visit [facility] - Endocrinology - [place] #2 [place] [address] Yasmin Restrepo MD #[address] [address] 09/02/2024 2:00 PM CDT Appointment [facility] Respiratory Therapy 1 [place] [address] Werner Swift MD #2 [place] [address] Discharge Disposition: Discharged to home or Selfcare 10/08/2024 1:40 PM CDT Office Visit [facility] Family Medicine [facility] #2 [place] [address] Liz Capellan, DO [address] [address] 11/16/2024 1:00 PM CDT Office Visit [facility] - Pulmonology & Sleep Medicine [facility] #2 [place] [address] Werner Swift MD #2 [place] [address] documented as of this encounter Goals Goal [...] Zones/Action plan education. I will notify my Ticket Writer if my symptoms fall in the y [...] - 19 04/27/2024 04/27/2024 04/27/2024 2:19 PM HOSTESS Respiratory Rule-Out 07/24/2024 07/24/2024 025 2:29 PM HOSTESS COVID - 19 07/24/2024 07/24/2024 07/24/2024 2:29 PM HOSTESS Assessment Noted Time PHQ-9 Depression Total Score: 1 03/07/20 21 10:29 AM CDT documented as of this encounter Care Teams Commercial Shrimping Captain Relationship Specialty Start Date End Date Keith Craft MD PCP - General Family Medicine 01/14/19 12/26/23 Liz Capellan DO [address] [address] PCP - General Family Medicine 12/27/23 Quang Locke DO Gastroenterology 01/18/16 [place] [address] [address] 05/25/21 Werner Swift MD #2 [place] [address] Consulting Physician Pulmonary Disease 01/30/22 Yasmin Restrepo MD #[address] [address] Consulting Physician Endocrinology 07/20/24 documented as of this encounter
--- OUTSIDE RECORDS SUMMARY | 2024-08-16 19:31 | XMS_ITS | Encounter Summary ---
Author Organization [facility] Address [address] [place] [address] Phone Care Team Providers Care Tar Distributor Operator Name Role Phone Quang Locke DO Unavailable [phone] Keith Craft MD Primary Care Provider [phone] Bri Rollins RN Unavailable Unavailable Silvio Schulte MD Unavailable [phone] Bri Rollins RN Unavailable Unavailable Werner Swift MD Unavailable Liz Capellan DO Primary Care Provider [phone] Yasmin Restrepo MD Unavailable Reason for Visit * Reason Comments Medication Refill Encounter Details Date Type Department Care Team (Late st Contact Info) Description 05/04/2021 Refill [facility] - Family Medicine [facility] #2 [place] [address] Keith Craft MD #1 [place] [address] Medication Refill Social History Tobacco Use Types [...] COVID-19? No / Unsure 05/05/2021 3:02 PM ENGINEER TECHNICAL STAFF documented as of this encounter Miscellaneous Notes * Telephone Encounter - Gloria Cornejo RN - 05/05/2021 10:59 AM CST Name from pharmacy: DIAZEPAM 10 MG TAB 10 Tablet Will file in chart as: diazePAM (VALIUM) 10 MG Tablet The original prescription was discontinued on 03/23/2021 by Keith Craft MD NEER TECHNICAL STAFF documented in this encounter Plan of Treatment Upcoming Encounters Date Type Department Care Team (Late st Contact Info) Description 08/27/2024 1:15 PM CDT Office Visit [facility] - Endocrinology [facility] #2 [place] [address] Yasmin Restrepo MD #[address] [address] 09/02/2024 2:00 PM CDT [facility] Res[facility] 1 [place] [phone] Werner Swift MD #2 [place] [address] Discharge Disposition: Discharged to home or Selfcare 10/08/2024 1:40 PM CDT Office Visit [facility] Medical [facility] - Family Medicine - [place] #2 [place] [address] Liz Capellan, DO 2 [facility] [address]. [address] [place] [address] 11/16/2024 1:00 PM CDT Office Visit [facility] - Pulmonology & Sleep Medicine - [place] #2 [place] [address] Werner Swift MD #2 [place] [address] documented as of this encounter Goals Goal [...] Zones/Action plan education. I will notify my Mallet Cutter if my symptoms fall in the y [...] - 19 07/23/2021 07/23/2021 07/24/2021 6:31 AM ENGINEER TECHNICAL STAFF COVID - 19 10/19/2021 10/19/2021 10/20/2021 7:45 AM CDT Respiratory Rule Out - RPA 10/19/2021 10/19/2021 0 10/20/2021 2:10 PM CDT Stenotrophomonas maltophilia Comment:Must have a follow up respiratory sample to remove isolation flag. 10/20/2021 10/20/2021 COVID - 19 04/20/2022 04/20/2022 04/30/2022 12:1 8 AM ENGINEER TECHNICAL STAFF COVID - 19 07/18/2022 07/18/2022 07/28/2022 12:1 6 AM ENGINEER TECHNICAL STAFF COVID - 19 08/21/2022 08/21/2022 08/22/2022 8:31 AM CDT Respiratory Rule Out - RPA 08/21/2022 08/21/2022 0 08/22/2022 3:21 PM CDT COVID - 19 04/18/2023 04/18/2023 04/28/2023 12:1 6 AM ENGINEER TECHNICAL STAFF COVID - 19 07/13/2023 07/13/2023 07/23/2023 12:1 6 AM ENGINEER TECHNICAL STAFF Respiratory Rule Out - RPA 03/17/2024 03/17/2024 1 3:36 PM CDT COVID - 19 04/27/2024 04/27/2024 04/27/2024 2:19 PM ENGINEER TECHNICAL STAFF Respiratory Rule-Out 07/24/2024 07/24/2024 025 2:29 PM ENGINEER TECHNICAL STAFF COVID - 19 07/24/2024 07/24/2024 07/24/2024 2:29 PM ENGINEER TECHNICAL STAFF Assessment Noted Time PHQ-9 Depression Total Score: 1 03/07/20 21 10:29 AM CDT documented as of this encounter Care Teams Tar Distributor Operator Relationship Specialty Start Date End Date Keith Craft MD PCP - General Family Medicine 01/14/19 12/26/23 Liz Capellan DO 2 [facility] [address] [place] [address] PCP - General Family Medicine 12/27/23 Quang Locke DO Gastroenterology 01/18/16 Bri Rollins, RN [place] Mallet Cutter 03/07/21 05/22/23 [place] [address] [address] 05/25/21 Bri Rollins, RN [place] Nurse Mallet Cutter 03/07/21 05/23/23 Werner Swift MD #2 [place] [address] Consulting Physician Pulmonary Disease 01/30/22 Yasmin Restrepo MD #[address] [address] Consulting Physician Endocrinology 07/20/24 documented as of this encounter
--- OUTSIDE RECORDS SUMMARY | 2024-08-16 19:31 | XMS_ITS | Referral Summary ---
Author Organization [facility] Address [address] [place] [address] Care Team Providers Care Environmental Field Services Technician Name Role Phone Keith Craft MD Primary Care Provider [phone] Luis F Frausto MD Unavailable [phone] Encounters Date Type Department Care Team Description 06/10/2024 2:45 PM SALVAGE ENGINEERING TECHNICIAN Lab [address] [address] from Last 3 Months Allergies [...] (08/23/2021): Added automatically from request for surgery [id number] Influenza A 06/16/2017 Cardiomyopathy 06/16/2017 Septicemia 06/16/2017 [...] on file Legal Sex Female 5:46 PM SALVAGE ENGINEERING TECHNICIAN Gender Identity Not on file Sexual Orientation [...] on file Medical Devices Implanted Type Area Veterinary Anatomist Device Identifier Shelf Expiration Date Model / [...] CDT PROCEDURE REPORT Patient: KARY CORONADO Account: [id number] Room No: : 1950 Patient Type: [facility] Attend.: Jass Huang M.D. Admit Date: 02/23/2010 Dict.: Jass Huang M.D. Disch. Date: NAME OF PROCEDURE: Colonoscopy. HISTORY OF PRESENT ILLNESS This is a 59-year-old female who presents for screening colonoscopy. PHYSICAL EXAMINATION Well developed female. Lungs are clear. Cardiovascular exam isunremarkable. PROCEDURE: Colonoscopy was performed with the Poynt video endoscope. The patientwas premedicated by anesthesia. [...] Recently Relevant to Health Maintenance Insurance MEDICARE [facility] Address: [address] [address] [place] [address] [facility] Member Subscriber Plan / Payer (Ef fective 2021-Present) Name:Kary Coronado Relation to Subscriber:Self Name:Kary Coronado Payer ID:[id number] (NAIC) Type:MEDICARE RISK OTHER Address: [facility] ATTN: CLAIMS [address] [place] [phone] [facility] [place] Advance Directives For more information, please contact: [phone] * Full Code (Latest Code Status on File) Date Activated Date Inactivated Comments 05/17/2017 9:28 PM 05/21/2017 8:00 PM Care Teams Environmental Field Services Technician Relationship Specialty Start Date End Date Keith Craft MD [address] [address] PCP - General 02/05/21 Luis F Frausto MD 2 [facility] [place] [address] [address] Consulting Physician Interventional Cardiology 09/13/21
--- OUTSIDE RECORDS SUMMARY | 2024-08-16 19:31 | XMS_ITS | Encounter Summary ---
Author Organization [facility] Address [address] [place] [address] Phone Care Team Providers Care Dryer Operator Name Role Phone Quang Locke DO Unavailable [phone] Keith Craft MD Primary Care Provider [phone] Bri Rollins RN Unavailable Unavailable Silvio Schulte MD Unavailable [phone] Bri Rollins RN Unavailable Unavailable Werner Swift MD Unavailable Liz Capellan DO Primary Care Provider [phone] Yasmin Restrepo MD Unavailable Reason for Visit * Reason Comments Medication Refill Encounter Details Date Type Department Care Team (Late st Contact Info) Description 12/24/2022 Refill [facility] - Family Medicine [facility] #2 [place] [address] Keith Craft MD #1 [place] [address] Medication Refill Social History Tobacco Use Types [...] PM CDT Name from pharmacy: VITAMIN D [id number] CAPSULE Will file in chart as: ergocalciferol (VITAMIN D) 86402 UNIT Capsule The original prescription was discontinued on 11/01/2022 by Keith Craft MD documented in this encounter Plan of Treatment Upcoming Encounters Date Type Department Care Team (Late st Contact Info) Description 08/27/2024 1:15 PM CDT Office Visit [facility] - Endocrinology [facility] #2 [place] [address] Yasmin Restrepo MD #[address] [address] 09/02/2024 2:00 PM CDT [facility] 1 [place] [address] Werner Swift MD #2 [place] [address] Discharge Disposition: Discharged to home or Selfcare 10/08/2024 1:40 PM CDT Office Visit [facility] Medical [facility] - Family Medicine [facility] #2 [place] [address] Liz Capellan, DO 2 [facility] [address]. [address] [place] [address] 11/16/2024 1:00 PM CDT Office Visit [facility] - Pulmonology & Sleep Medicine [facility] #2 [place] [address] Werner Swift MD #2 [place] [address] documented as of this encounter Goals Goal [...] Zones/Action plan education. I will notify my Foundation Digger if my symptoms fall in the y [...] 19 04/18/2023 04/18/2023 04/28/2023 12:1 6 AM CASE MANAGEMENT RN COVID - 19 07/13/2023 07/13/2023 07/23/2023 12:1 6 AM CASE MANAGEMENT RN Respiratory Rule Out - RPA 03/17/2024 03/17/2024 1 3:36 PM CDT COVID - 19 04/27/2024 04/27/2024 04/27/2024 2:19 PM CASE MANAGEMENT RN Respiratory Rule-Out 07/24/2024 07/24/2024 025 2:29 PM CASE MANAGEMENT RN COVID - 19 07/24/2024 07/24/2024 07/24/2024 2:29 PM CASE MANAGEMENT RN Assessment Noted Time PHQ-9 Depression Total Score: 1 03/07/20 21 10:29 AM CDT documented as of this encounter Care Teams Dryer Operator Relationship Specialty Start Date End Date Keith Craft MD PCP - General Family Medicine 01/14/19 12/26/23 Liz Capellan DO [address] [address] PCP - General Family Medicine 12/27/23 Quang Locke DO Gastroenterology 01/18/16 Rollins, Bri M, RN [place] Foundation Digger 03/07/21 05/22/23 [place] [address] [address] 05/25/21 Bri Rollins RN [place] Nurse Foundation Digger 03/07/21 05/23/23 Werner Swift MD #2 [place] [address] Consulting Physician Pulmonary Disease 01/30/22 Yasmin Restrepo MD #[address] [address] Consulting Physician Endocrinology 07/20/24 documented as of this encounter
--- OUTSIDE RECORDS SUMMARY | 2024-08-16 19:31 | XMS_ITS | Encounter Summary ---
Author Organization [facility] Address [address] [place] [address] Phone Care Team Providers Care Cell Changer Name Role Phone Quang Locke DO Unavailable [phone] Keith Craft MD Primary Care Provider [phone] Silvio Schulte MD Unavailable [phone] Werner Swift MD Unavailable Liz Capellan DO Primary Care Provider [phone] Yasmin Restrepo MD Unavailable Reason for Visit * Reason Onset Date Comments Medication Refill Follow-up 11/08/2023 Encounter Details Date Type Department Care Team (Late st Contact Info) Description 11/08/2023 Telephone [facility] - Family [facility] #2 [place] [address] Keith Craft MD #1 [place] [address] Medication Refill; Follow-up Social History Tobacco Use [...] Total Score - Questions 1-9 4 10/25 [facility] [place] of Occupat ional Health - Occupational Stress [...] things Not at all 11/08/2023 9:33 AM CDT Reva Moreno Feeling down, depressed, or hopeless Not at all 11/08/2023 9:33 AM CDT Reva Moreno * Over the past 2 weeks, how often have you been bothered by any of the following problems? Question Answer Date of Assessment Author Patient Health Questionnaire -2 Score 0 11/08/2023 9:33 AM CDT Reva Moreno documented as of this encounter Miscellaneous Notes * Telephone Encounter - Gloria Cornejo RN - 11/11/2023 11:29 AM CDT Waiting on Dr Craft as this is being addressed in another encounter as sent to PCP on 11/08/23. * Telephone Encounter - Radha Daely RN - 11/11/2023 9:22 AM CDT Situation: Patient calling regarding prescription for diazepam 5 mg Background: CURLY: 11/08/23 Assessment: Patient states she spoke to [facility] today 11/11/23 and they have not received a script for her diazepam 5 mg Recommendations: Please advise * Telephone Encounter - Gloria Cornejo RN - 11/08/2023 1:07 PM CDT duplicate documented in this encounter Plan of Treatment Upcoming Encounters Date Type Department Care Team (Late st Contact Info) Description 08/27/2024 1:15 PM CDT Office Visit [facility] - Endocrinology [facility] #2 [place] [address] Yasmin Restrepo MD #[address] [phone] 09/02/2024 2:00 PM CDT [facility] 1 [place] [address] Werner Swift MD #2 [place] [address] Discharge Disposition: Discharged to home or Selfcare 10/08/2024 1:40 PM CDT Office Visit [facility] Medical [facility] - Family Medicine - [place] #2 [place] [address] Liz Capellan, DO 2 [place] [facility] [address]. [address] [place] [address] 11/16/2024 1:00 PM CDT Office Visit [facility] - Pulmonology & Sleep Medicine - [place] #2 [facility] [place] [address] Werner Swift MD #2 [place] [address] documented as of this encounter Goals Goal [...] Zones/Action plan education. I will notify my Medicaid Eligibility Specialist if my symptoms fall in the [...] - 19 04/27/2024 04/27/2024 04/27/2024 2:19 PM LINE INSTALLATION SUPERVISOR Respiratory Rule-Out 07/24/2024 07/24/2024 025 2:29 PM LINE INSTALLATION SUPERVISOR COVID - 19 07/24/2024 07/24/2024 07/24/2024 2:29 PM LINE INSTALLATION SUPERVISOR Assessment Noted Time PHQ-9 Depression Total Score: 4 11/08/19 24 9:33 AM CDT documented as of this encounter Care Teams Cell Changer Relationship Specialty Start Date End Date Keith Craft MD PCP - General Family Medicine 01/14/19 12/26/23 Liz Capellan DO [address] [address] PCP - General Family Medicine 12/27/23 Quang Locke DO Gastroenterology 01/18/16 [place] [address] [address] 05/25/21 Werner Swift MD #2 [place] [address] Consulting Physician Pulmonary Disease 01/30/22 Yasmin Restrepo MD [address] [address] Consulting Physician Endocrinology 07/20/24 documented as of this encounter
--- OUTSIDE RECORDS SUMMARY | 2024-08-16 19:31 | XMS_ITS | Encounter Summary ---
Author Organization [facility] Address [address] [place] [address] Phone Care Team Providers Care Disk Grinder Name Role Phone Quang Locke DO Unavailable [phone] Keith Craft MD Primary Care Provider [phone] Silvio Schulte MD Unavailable [phone] Werner Swift MD Unavailable Liz Capellan DO Primary Care Provider [phone] Yasmin Restrepo MD Unavailable Reason for Visit * Reason Comments Medication Refill Encounter Details Date Type Department Care Team (Late st Contact Info) Description 12/26/2023 [facility]ill [facility] - Family Medicine [facility] #2 [place] [address] Keith Craft MD #1 [place] [address] Medication Refill Social History Tobacco Use Types [...] attend chur ch or taoism services? Never 12/27/2023 Do you belong to any clubs o r organizations such as pentecostalism groups, unions, fraternal or athletic groups, or [...] Total Score - Questions 1-9 4 10/25 [facility] [place] of Occupat ional Health - Occupational Stress [...] in a snf (including now)? No 07/13/2023 Housing Stability Vital Sign Answer Richar e Recorded In the last 12 months, was t here a time when you were not able to pay the mortgage or rent on time? No 12/27/2023 In the past 12 months, how m any times have you moved where you were living? 0 12/27/2023 At any time in the past 12 m [facility], were you homeless or living in a snf (including now)? No 12/27/2023 Education Answer Date [...] drink 12/27/2023 1:03 PM CDT [facility] [place] [facility] * Q3: How often do you have six or more drinks on one occasion? Answer Date of Assessment Author Never 12/27/2023 1:03 PM CDT [facility] [place] documented as of this encounter Plan of Treatment Upcoming Encounters Date Type Department Care Team (Late st Contact Info) Description 08/27/2024 1:15 PM CDT Office Visit [facility] - Endocrinology - [place] [address] [place] [phone] Yasmin Restrepo MD #[address] [place] [address] 09/02/2024 2:00 PM CDT [facility] [address] [place] [address] Werner Swift MD #[address] [place] [address] Discharge Disposition: Discharged to home or Selfcare 10/08/2024 1:40 PM CDT Office Visit [facility] - Family Medicine - [place] #[address] [place] [address] Liz Capellan, DO 2 [facility] [address] [address] 11/16/2024 1:00 PM CDT Office Visit [facility] - Pulmonology & Sleep Medicine [facility] #2 [place] [address] Werner Swift MD #2 [place] [address] documented as of this encounter Goals Goal [...] Zones/Action plan education. I will notify my Airway Traffic Controller if my symptoms fall in the y ellow zone . I will consider receiving an influenza and pneumonia vaccination, if applicable. -I will call the office if I experience any symptoms listed above to discuss at home management options. documented as of this encounter Visit Diagnoses Diagnosis Type 2 diabetes mellitus with diabetic neuropathy, with long-term current use of insulin ([facility]) documented in this encounter Additional Health Concerns Infection Onset Date Last Indicated Resolved Time Stenotrophomonas maltophilia Comment:Must have a follow up respiratory sample to remove isolation flag. 10/20/2021 10/20/2021 Respiratory Rule Out - RPA 03/17/2024 03/17/2024 1 3:36 PM CDT COVID - 19 04/27/2024 04/27/2024 04/27/2024 2:19 PM WASHHOUSE HAND Respiratory Rule-Out 07/24/2024 07/24/2024 025 2:29 PM WASHHOUSE HAND COVID - 19 07/24/2024 07/24/2024 07/24/2024 2:29 PM WASHHOUSE HAND Assessment Noted Time PHQ-9 Depression Total Score: 4 11/08/19 24 9:33 AM CDT documented as of this encounter Care Teams Disk Grinder Relationship Specialty Start Date End Date Keith Craft MD PCP - General Family Medicine 01/14/19 12/26/23 Liz Capellan DO [address] [address] PCP - General Family Medicine 12/27/23 Quang Locke DO Gastroenterology 01/18/16 [place] [address] [address] 05/25/21 Werner Swift MD #2 [facility] [address] Consulting Physician Pulmonary Disease 01/30/22 Yasmin Restrepo MD [address] [address] Consulting Physician Endocrinology 07/20/24 documented as of this encounter
--- OUTSIDE RECORDS SUMMARY | 2024-08-16 19:31 | XMS_ITS | Encounter Summary ---
Author Organization [facility] Address [address] [place] [address] Phone Care Team Providers Care Staffing Operations Manager Name Role Phone Quang Locke DO Unavailable [phone] Keith Craft MD Primary Care Provider [phone] Bri Rollins RN Unavailable Unavailable Silvio Schulte MD Unavailable [phone] Bri Rollins RN Unavailable Unavailable Werner Swift MD Unavailable Liz Capellan DO Primary Care Provider [phone] Yasmin Restrepo MD Unavailable Reason for Visit * Reason Comments Medication Refill Encounter Details Date Type Department Care Team (Late st Contact Info) Description 04/16/2021 Refill [facility] - Family Medicine [facility] #2 [place] [address] Keith Craft MD #1 [place] [address] Medication Refill Social History Tobacco Use Types [...] COVID-19? No / Unsure 04/18/2021 1:18 PM CAMERA MECHANIC documented as of this encounter Miscellaneous Notes * Telephone Encounter - Gloria Cornejo RN - 04/17/2021 11:34 AM CST 90 days supply filled at [facility] 03/29/21 RA MECHANIC documented in this encounter Plan of Treatment Upcoming Encounters Date Type Department Care Team (Late st Contact Info) Description 08/27/2024 1:15 PM CDT Office Visit [facility] - Endocrinology [facility] #2 [place] [address] Yasmin Restrepo MD #[address] [address] 09/02/2024 2:00 PM CDT Appointment [facility] Respiratory Therapy 1 [place] [address] Werner Swift MD #2 [place] [address] Discharge Disposition: Discharged to home or Selfcare 10/08/2024 1:40 PM CDT Office Visit [facility] - Family Medicine - [place] #[address] [place] [address] Liz Capellan, DO 2 [facility] [facility] [address] [place] [address] 11/16/2024 1:00 PM CDT Office Visit [facility] - Pulmonology & Sleep Medicine [facility] #2 [place] [address] Werner Swift MD #2 [facility] [address] documented as of this encounter Goals Goal [...] Zones/Action plan education. I will notify my Executor Of Estate if my symptoms fall in the y [...] 19 07/23/2021 07/23/2021 07/24/2021 6:31 AM CAMERA MECHANIC COVID - 19 10/19/2021 10/19/2021 10/20/2021 7:45 AM CDT Respiratory Rule Out - RPA 10/19/2021 10/19/2021 0 10/20/2021 2:10 PM CDT Stenotrophomonas maltophilia Comment:Must have a follow up respiratory sample to remove isolation flag. 10/20/2021 10/20/2021 COVID - 19 04/20/2022 04/20/2022 04/30/2022 12:1 8 AM CAMERA MECHANIC COVID - 19 07/18/2022 07/18/2022 07/28/2022 12:1 6 AM CAMERA MECHANIC COVID - 19 08/21/2022 08/21/2022 08/22/2022 8:31 AM CDT Respiratory Rule Out - RPA 08/21/2022 08/21/2022 0 08/22/2022 3:21 PM CDT COVID - 19 04/18/2023 04/18/2023 04/28/2023 12:1 6 AM CAMERA MECHANIC COVID - 19 07/13/2023 07/13/2023 07/23/2023 12:1 6 AM CAMERA MECHANIC Respiratory Rule Out - RPA 03/17/2024 03/17/2024 1 3:36 PM CDT COVID - 19 04/27/2024 04/27/2024 04/27/2024 2:19 PM CAMERA MECHANIC Respiratory Rule-Out 07/24/2024 07/24/2024 025 2:29 PM CAMERA MECHANIC COVID - 19 07/24/2024 07/24/2024 07/24/2024 2:29 PM CAMERA MECHANIC Assessment Noted Time PHQ-9 Depression Total Score: 1 03/07/20 21 10:29 AM CDT documented as of this encounter Care Teams Staffing Operations Manager Relationship Specialty Start Date End Date Keith Craft MD PCP - General Family Medicine 01/14/19 12/26/23 Liz Capellan DO 2 [facility] [address] [place], [place] [id number] PCP - General Family Medicine 12/27/23 Quang Locke DO Gastroenterology 01/18/16 Bri Rollins, RN [place] Executor Of Estate 03/07/21 05/22/23 [place] [address] [address] 05/25/21 Bri Rollins, RN [place] Nurse Executor Of Estate 03/07/21 05/23/23 Werner Swift MD #2 [place] [address] Consulting Physician Pulmonary Disease 01/30/22 Yasmin Restrepo MD #[address] [address] Consulting Physician Endocrinology 07/20/24 documented as of this encounter
--- OUTSIDE RECORDS SUMMARY | 2024-08-16 19:31 | XMS_ITS | Encounter Summary ---
Author Organization [facility] Address [address] [place] [address] Phone Care Team Providers Care Building Attendant Name Role Phone Quang Locke DO Unavailable Keith Craft MD Primary Care Provider [phone] Silvio Schulte MD Unavailable [phone] Werner Swift MD Unavailable Liz Capellan DO Primary Care Provider [phone] Yasmin Restrepo MD Unavailable Reason for Visit * Reason Comments Medication Refill Encounter Details Date Type Department Care Team (Late st Contact Info) Description 10/10/2023 Refill [facility] - Family Medicine [facility] #2 [place] [address] Keith Craft MD #1 [place] [address] Medication Refill Social History Tobacco Use Types Packs/Day Years Used Date Smoking Tobacco: Former Cigarettes 2 50 1 - 03/16/2018 Smokeless Tobacco: Never Comments:Still uses nictoine patches and gum Alcohol Use Standard Drinks/Week Comments No 0 (1 standard drink = 0.6 oz pur e alcohol) [facility] Utilities Answer Date Recorded In the [...] often do you attend chur ch or samaritan services? Never 07/13/2023 Do you belong to [...] Score - Questions 1-9 0 /0 08/2021 [facility] [place] of Occupat ional Health - Occupational Stress [...] Office Visit [facility] - Endocrinology [facility] #2 [place] [address] Yasmin Restrepo MD #[address] [phone] 09/02/2024 2:00 PM CDT Appointment [facility] Respiratory Therapy 1 [place] [address] Werner Swift MD #2 [place] [address] Discharge Disposition: Discharged to home or Selfcare 10/08/2024 1:40 PM CDT Office Visit [facility] Family Medicine [facility] #2 [place] [address] Liz Capellan, DO [address] [address] 11/16/2024 1:00 PM CDT Office Visit [facility] - Pulmonology & Sleep Medicine [facility] #2 [place] [address] Werner Swift MD #2 [place] [address] documented as of this encounter Goals Goal [...] Zones/Action plan education. I will notify my Trimmer Operator Three Knife if my symptoms fall in the y [...] - 19 04/27/2024 04/27/2024 04/27/2024 2:19 PM PARACHUTE/COMBATANT DIVER OFFICER Respiratory Rule-Out 07/24/2024 07/24/2024 025 2:29 PM PARACHUTE/COMBATANT DIVER OFFICER COVID - 19 07/24/2024 07/24/2024 07/24/2024 2:29 PM PARACHUTE/COMBATANT DIVER OFFICER Assessment Noted Time PHQ-9 Depression Total Score: 1 03/07/20 21 10:29 AM CDT documented as of this encounter Care Teams Building Attendant Relationship Specialty Start Date End Date Keith Craft MD PCP - General Family Medicine 01/14/19 12/26/23 Liz Capellan DO 2 [facility] [address] [place] [address] PCP - General Family Medicine 12/27/23 Quang Locke DO Gastroenterology 01/18/16 [place] [address] [address] 05/25/21 Werner Swift MD #2 [place] [address] Consulting Physician Pulmonary Disease 01/30/22 Yasmin Restrepo MD #[address] [address] Consulting Physician Endocrinology 07/20/24 documented as of this encounter
--- OUTSIDE RECORDS SUMMARY | 2024-08-16 19:31 | XMS_ITS | Encounter Summary ---
Author Organization [facility] Address [address] [place] [address] Phone Care Team Providers Care Head Automatic Sawyer Name Role Phone Quang Locke DO Unavailable [phone] Keith Craft MD Primary Care Provider [phone] Silvio Schulte MD Unavailable [phone] Werner Swift MD Unavailable Liz Capellan DO Primary Care Provider [phone] Yasmin Restrepo MD Unavailable Reason for Visit * Reason Comments Medication Refill Encounter Details Date Type Department Care Team (Late st Contact Info) Description 09/02/2023 Refill [facility] - Family Medicine - [place] #2 [place] [address] Marcin Anderson APRN, ACADEMIC AFFAIRS COORDINATOR #[address] [address] Medication Refill Social History Tobacco Use Types Packs/Day Years Used Date Smoking Tobacco: Former Cigarettes 2 50 1 - 03/16/2018 Smokeless Tobacco: Never Comments:Still uses nictoine patches and gum Alcohol Use Standard Drinks/Week Comments No 0 (1 standard drink = 0.6 oz pur e alcohol) [facility] Utilities Answer Date Recorded In [...] Total Score - Questions 1-9 0 08/2021 [facility] [place] of Occupat ional Health - Occupational Stress [...] place to sleep or slept in a penitentiary (including now)? No 07/13/2023 Education Answer Date [...] MD [place] 09/10/22 Office Visit Keith Craft, [facility] Showing recent visits within past 365 days and meeting all other requirements Future Appointments No visits were found meeting these conditions. Showing future appointments within next 90 days and meeting all other requirements documented in this encounter Plan of Treatment Upcoming Encounters Date Type Department Care Team (Late st Contact Info) Description 08/27/2024 1:15 PM CDT Office Visit [facility] - Endocrinology [facility] #2 [place] [address] Yasmin Restrepo MD #[address] [address] 09/02/2024 2:00 PM CDT Appointment [facility] Respiratory Therapy 1 [place] [address] Werner Swift MD #2 [place] [address] Discharge Disposition: Discharged to home or Selfcare 10/08/2024 1:40 PM CDT Office Visit [facility] - Family Medicine [facility] #2 [place] [address] Liz Capellan, DO [address] [address] 11/16/2024 1:00 PM CDT [facility] - Pulmonology & Sleep Medicine - [place] #[address] [place] [address] Werner Swift MD #[address] [place] [address] documented as of this encounter Goals Goal Patient Goal Type Associated Problems Recent Progress Patient-Stated? Author Chronic Disease Management Chronic Disease Management On track(2022 10:36 AM CDT) Bri Turcios, KATEY Note: Goal: I will effectively manage my [...] Zones/Action plan education. I will notify my Theater Company Producer if my symptoms fall in the y [...] 04/27/2024 04/27/2024 04/27/2024 2:19 PM VICE PRESIDENT INTEGRATED Respiratory Rule-Out 07/24/2024 07/24/2024 025 2:29 PM VICE PRESIDENT INTEGRATED COVID - 19 07/24/2024 07/24/2024 07/24/2024 2:29 PM VICE PRESIDENT INTEGRATED Assessment Noted Time PHQ-9 Depression Total Score: 1 03/07/20 21 10:29 AM CDT documented as of this encounter Care Teams Head Automatic Sawyer Relationship Specialty Start Date End Date Keith Craft MD PCP - General Family Medicine 01/14/19 12/26/23 Liz Capellan DO 2 [facility] [address] [place] [address] PCP - General Family Medicine 12/27/23 Quang Locke DO Gastroenterology 01/18/16 [place] [address] [address] 05/25/21 Werner Swift MD #2 [place] [address] Consulting Physician Pulmonary Disease 01/30/22 Yasmin Restrepo MD #[address] [address] Consulting Physician Endocrinology 07/20/24 documented as of this encounter
--- OUTSIDE RECORDS SUMMARY | 2024-08-16 19:31 | XMS_ITS | Encounter Summary ---
Author Organization [facility] Address [address] [place] [address] Phone Care Team Providers Care Perl Developer Name Role Phone Quang Locke DO Unavailable [phone] Keith Craft MD Primary Care Provider Bri Rollins RN Unavailable Unavailable Silvio Schulte MD Unavailable Bri Rollins RN Unavailable Unavailable Werner Swift MD Unavailable Liz Capellan DO Primary Care Provider [phone] Yasmin Restrepo MD Unavailable Reason for Visit * Reason Comments Medication Refill Encounter Details Date Type Department Care Team (Late st Contact Info) Description 09/04/2022 Refill [facility] - Family Medicine [facility] #2 [place] [address] Keith Craft MD #1 [place] [address] Medication Refill Social History Tobacco Use Types [...] Provider Dept 07/18/22 Office Visit Kerri Kauffman, PROFESSIONAL BENEFITS SALES CONSULTANT, SENIOR CLINICAL RESEARCH SCIENTIST [facility] 06/07/22 Office Visit Keith Craft MD [facility] 03/02/22 Procedure Visit [facility] [place] 03/02/22 Office Visit Keith Craft MD [facility] 11/03/21 [facility] 10/19/21 Office Visit Keith Craft MD [facility] [place] 10/05/21 Office Visit Keith Craft MD [facility] 09/08/21 Office Visit Brie Denis PAC [facility] Showing recent visits within past 365 days and meeting all other requirements Future Appointments Date Type Provider Dept 09/10/22 Appointment Keith Craft MD [facility] Showing future appointments within next 90 days and meeting all other requirements documented in this encounter Plan of Treatment Upcoming Encounters Date Type Department Care Team (Late st Contact Info) Description 08/27/2024 1:15 PM CDT Office Visit [facility] - Endocrinology - [place] #2 [place] [address] Yasmin Restrepo MD #[address] [phone] 09/02/2024 2:00 PM CDT Appointment [facility] Respiratory Therapy 1 [place] [address] Werner Swift MD #2 [place] [address] Discharge Disposition: Discharged to home or Selfcare 10/08/2024 1:40 PM CDT Office Visit [facility] - Family Medicine [facility] #2 [place] [address] Liz Capellan, DO [address] [address] 11/16/2024 1:00 PM CDT Office Visit [facility] - Pulmonology & Sleep Medicine - [place] #[address] [place] [address] Werner Swift MD #2 [place] [address] documented as of this encounter Goals Goal [...] Zones/Action plan education. I will notify my Freight Air Brake Fitter if my symptoms fall in the y [...] 19 04/18/2023 04/18/2023 04/28/2023 12:1 6 AM BOOK SALESMAN COVID - 19 07/13/2023 07/13/2023 07/23/2023 12:1 6 AM BOOK SALESMAN Respiratory Rule Out - RPA 03/17/2024 03/17/2024 1 3:36 PM CDT COVID - 19 04/27/2024 04/27/2024 04/27/2024 2:19 PM BOOK SALESMAN Respiratory Rule-Out 07/24/2024 07/24/2024 025 2:29 PM BOOK SALESMAN COVID - 19 07/24/2024 07/24/2024 07/24/2024 2:29 PM BOOK SALESMAN Assessment Noted Time PHQ-9 Depression Total Score: 1 03/07/20 10:29 AM CDT documented as of this encounter Care Teams Perl Developer Relationship Specialty Start Date End Date Keith Craft MD PCP - General Family Medicine 01/14/19 12/26/23 Liz Capellan DO [address] [address] PCP - General Family Medicine 12/27/23 Quang Locke DO Gastroenterology 01/18/16 Bri Rollins RN [place] Freight Air Brake Fitter 03/07/21 05/22/23 [place] [address] [address] 05/25/21 Bri Rollins RN [place] Nurse Freight Air Brake Fitter 03/07/21 05/23/23 Werner Swift MD #2 [place] [address] Consulting Physician Pulmonary Disease 01/30/22 Yasmin Restrepo MD #[address] [address] Consulting Physician Endocrinology 07/20/24 documented as of this encounter
[2024-08-16 19:32] VITALS: BP 94/53; PULSE 80; RESP 20; TEMP 37; O2SAT 100
--- OUTSIDE RECORDS SUMMARY | 2024-08-16 19:32 | XMS_ITS | Encounter Summary ---
Author Organization [facility] Address [address] [place] [address] Phone Care Team Providers Care Manager Diesel Name Role Phone Quang Locke DO Unavailable [phone] Keith Craft MD Primary Care Provider [phone] Bri Rollins RN Unavailable Unavailable Silvio Schulte MD Unavailable [phone] Bri Rollins RN Unavailable Unavailable Werner Swift MD Unavailable Liz Capellan DO Primary Care Provider [phone] Yasmin Restrepo MD Unavailable Reason for Visit * Reason Comments Medication Refill Encounter Details Date Type Department Care Team (Late st Contact Info) Description 10/12/2019 [facility] [address] [place] [address] Keith Craft MD #1 [place] [address] Medication Refill Social History Tobacco Use Types [...] Miscellaneous Notes * Telephone Encounter - Noemi Gabriel, RN - 10/12/2019 9:19 AM CDT Medication(s) refilled and signed per [facility] Chronic Medication Refill Standing Order for Pediatric and Adult Patients. documented in this encounter Plan of Treatment Upcoming Encounters Date Type Department Care Team (Late st Contact Info) Description 08/27/2024 1:15 PM CDT Office Visit [facility] Medical [facility] - Endocrinology [facility] #2 [place] [address] Yasmin Restrepo MD #[address] [address] 09/02/2024 2:00 PM CDT [facility]ment [facility] 1 [place] [address] Werner Swift MD #2 [place] [address] Discharge Disposition: Discharged to home or Selfcare 10/08/2024 1:40 PM CDT Office Visit [facility] Medical Group - Family Medicine [facility] #2 [place] [address] Liz Capellan, DO [address] [address] 11/16/2024 1:00 PM CDT Office Visit [facility] - Pulmonology & Sleep Medicine - [place] [address] [place] [address] Werner Swift MD [address] [place] [address] documented as of this encounter Visit Diagnoses Not on filedocumented in this encounter Additional Health Concerns Infection Onset Date Last Indicated Resolved Time COVID - 19 01/25/2021 01/25/2021 01/31/2021 8:10 AM CDT Respiratory Rule Out - RPA 01/30/2021 01/30/2021 0 02/01/2021 12:45 AM CDT COVID - 19 07/23/2021 07/23/2021 07/24/2021 6:31 AM FUEL ATTENDANT COVID - 19 10/19/2021 10/19/2021 10/20/2021 7:45 AM CDT Respiratory Rule Out - RPA 10/19/2021 10/19/2021 0 10/20/2021 2:10 PM CDT Stenotrophomonas maltophilia Comment:Must have a follow up respiratory sample to remove isolation flag. 10/20/2021 10/20/2021 COVID - 19 04/20/2022 04/20/2022 04/30/2022 12:1 8 AM FUEL ATTENDANT COVID - 19 07/18/2022 07/18/2022 07/28/2022 12:1 6 AM FUEL ATTENDANT COVID - 19 08/21/2022 08/21/2022 08/22/2022 8:31 AM CDT Respiratory Rule Out - RPA 08/21/2022 08/21/2022 0 08/22/2022 3:21 PM CDT COVID - 19 04/18/2023 04/18/2023 04/28/2023 12:1 6 AM FUEL ATTENDANT COVID - 19 07/13/2023 07/13/2023 07/23/2023 12:1 6 AM FUEL ATTENDANT Respiratory Rule Out - RPA 03/17/2024 03/17/2024 1 3:36 PM CDT COVID - 19 04/27/2024 04/27/2024 04/27/2024 2:19 PM FUEL ATTENDANT Respiratory Rule-Out 07/24/2024 07/24/2024 025 2:29 PM FUEL ATTENDANT COVID - 19 07/24/2024 07/24/2024 07/24/2024 2:29 PM FUEL ATTENDANT Assessment Noted Time PHQ-9 Depression Total Score: 1 06/10/19 20 1:03 PM FUEL ATTENDANT documented as of this encounter Care Teams Manager Diesel Relationship Specialty Start Date End Date Keith Craft MD PCP - General Family Medicine 01/14/19 12/26/23 Liz Capellan DO [address] [address] PCP - General Family Medicine 12/27/23 Quang Locke DO Gastroenterology 01/18/16 Bri Rollins, RN [place] Irrigation Installation Specialist 03/07/21 05/22/23 [place] [id number] [address] 05/25/21 Bri Rollins, RN [place] Nurse Irrigation Installation Specialist 03/07/21 05/23/23 Werner Swift MD #2 [place] [address] Consulting Physician Pulmonary Disease 01/30/22 Yasmin Restrepo MD #[address] [address] Consulting Physician Endocrinology 07/20/24 documented as of this encounter
--- OUTSIDE RECORDS SUMMARY | 2024-08-16 19:32 | XMS_ITS | Encounter Summary ---
Author Organization [facility] Address [address] [place] [address] Phone Care Team Providers Care Coil Winder Repair Name Role Phone Quang Locke DO Unavailable [phone] Keith Craft MD Primary Care Provider [phone] Bri Rollins RN Unavailable Unavailable Silvio Schulte MD Unavailable [phone] Bri Rollins RN Unavailable Unavailable Werner Swift MD Unavailable Liz Capellan DO Primary Care Provider [phone] Yasmin Restrepo MD Unavailable Reason for Visit * Reason Comments Medication Refill Dexilant Encounter Details Date Type Department Care Team (Late st Contact Info) Description 04/09/2020 Refill [facility] #2 [place] [address] Keith Craft MD #1 [place] [address] Medication Refill (Dexilant) Social History Tobacco Use [...] Piotr Aguirre RN - 04/09/2020 9:41 AM GUN CLUB MANAGER Requested Prescriptions Pending Prescriptions Disp Refills ??? Dexilant 60 MG CAPSULE DELAYED RELEASE [Pharmacy Med Name: DEXILANT DR 60 MG CAPSULE] 90 Cap 3 Sig: TAKE 1 CAPSULE BY MOUTH EVERY DAY Above medication pended for your approval. Last refill: 01/14/19 #90/3 Last office visit: 02/02/20 Next visit: 06/07/20 CLUB MANAGER documented in this encounter Plan of Treatment Upcoming Encounters Date Type Department Care Team (Late st Contact Info) Description 08/27/2024 1:15 PM CDT Office Visit [facility] - Endocrinology [facility] #2 [place] [address] Yasmin Restrepo MD #[address] [address] 09/02/2024 2:00 PM CDT Appointment [facility] Respiratory Therapy 1 [place] [phone] Werner Swift MD #2 [place] [address] Discharge Disposition: Discharged to home or Selfcare 10/08/2024 1:40 PM CDT Office Visit [facility] - Family Medicine - [place] [address] [place] [address] Liz Capellan, DO [address] [facility] [address] [place] [address] 11/16/2024 1:00 PM CDT Office Visit [facility] - Pulmonology & Sleep Medicine - [place] #2 [place] [address] Werner Swift MD #2 [place] [address] documented as of this encounter Visit Diagnoses Diagnosis Gastroesophageal reflux disease without esophagitis Esophageal reflux documented in this encounter Additional Health Concerns Infection Onset Date Last Indicated Resolved Time COVID - 19 01/25/2021 01/25/2021 01/31/2021 8:10 AM CDT Respiratory Rule Out - RPA 01/30/2021 01/30/2021 0 02/01/2021 12:45 AM CDT COVID - 19 07/23/2021 07/23/2021 07/24/2021 6:31 AM GUN CLUB MANAGER COVID - 19 10/19/2021 10/19/2021 10/20/2021 7:45 AM CDT Respiratory Rule Out - RPA 10/19/2021 10/19/2021 0 10/20/2021 2:10 PM CDT Stenotrophomonas maltophilia Comment:Must have a follow up respiratory sample to remove isolation flag. 10/20/2021 10/20/2021 COVID - 19 04/20/2022 04/20/2022 04/30/2022 12:1 8 AM GUN CLUB MANAGER COVID - 19 07/18/2022 07/18/2022 07/28/2022 12:1 6 AM GUN CLUB MANAGER COVID - 19 08/21/2022 08/21/2022 08/22/2022 8:31 AM CDT Respiratory Rule Out - RPA 08/21/2022 08/21/2022 0 08/22/2022 3:21 PM CDT COVID - 19 04/18/2023 04/18/2023 04/28/2023 12:1 6 AM GUN CLUB MANAGER COVID - 19 07/13/2023 07/13/2023 07/23/2023 12:1 6 AM GUN CLUB MANAGER Respiratory Rule Out - RPA 03/17/2024 03/17/2024 1 3:36 PM CDT COVID - 19 04/27/2024 04/27/2024 04/27/2024 2:19 PM GUN CLUB MANAGER Respiratory Rule-Out 07/24/2024 07/24/2024 025 2:29 PM GUN CLUB MANAGER COVID - 19 07/24/2024 07/24/2024 07/24/2024 2:29 PM GUN CLUB MANAGER Assessment Noted Time PHQ-9 Depression Total Score: 1 06/10/19 20 1:03 PM GUN CLUB MANAGER documented as of this encounter Care Teams Coil Winder Repair Relationship Specialty Start Date End Date Keith Craft MD PCP - General Family Medicine 01/14/19 12/26/23 Liz Capellan DO [address] [address] PCP - General Family Medicine 12/27/23 Quang Locke DO Gastroenterology 01/18/16 Bri Rollins, KATEY [place] Supervisory Investigative Specialist 03/07/21 05/22/23 [place] [address] [address] 05/25/21 Bri Rollins RN [place] Nurse Supervisory Investigative Specialist 03/07/21 05/23/23 Werner Swift MD #2 [place] [address] Consulting Physician Pulmonary Disease 01/30/22 Yasmin Restrepo MD #[address] [address] Consulting Physician Endocrinology 07/20/24 documented as of this encounter
--- OUTSIDE RECORDS SUMMARY | 2024-08-16 19:32 | XMS_ITS | Encounter Summary ---
Author Organization [facility] Address [address] [place] [address] Phone Care Team Providers Care Fuel Distribution System Operator Name Role Phone Quang Locke DO Unavailable [phone] Keith Craft MD Primary Care Provider [phone] Bri Rollins RN Unavailable Unavailable Silvio Schulte MD Unavailable [phone] Bri Rollins RN Unavailable Unavailable Werner Swift MD Unavailable Liz Capellan DO Primary Care Provider [phone] Yasmin Restrepo MD Unavailable Reason for Visit * Reason Onset Date Comments Medication Refill 05/11/2020 Encounter Details Date Type Department Care Team (Late st Contact Info) Description 05/11/2020 Refill [facility] [address] [place] [address] Keith Craft MD #1 [place] [address] Medication Refill Social History Tobacco Use Types [...] COVID-19? No / Unsure 04/25/2020 1:42 PM SCROLL MACHINE OPERATOR documented as of this encounter [...] upper lobe due to infectious organism [facility] - Keith Jenkins MD 3 months ago Acute non-recurrent maxillary sinusitis [facility] Keith Lemus MD 6 months ago Chronic prescription opiate use [facility] - Keith Jenkins MD 9 months ago Coronary artery disease involving [place] coronary artery of [place] heart without angina pectoris [facility] Keith Lemus MD 11 months ago COPD exacerbation (HCC) [facility] - Brie Castano, NICOLE Upcoming Appointments Future Appointments In 3 weeks Keith Craft MD [facility] - Family Medicine - [place], [facility] CANNERY WORKER - Recent and Past Visits Recent Visits Date Type Provider Dept 04/25/20 Office Visit Keith Craft MD [facility] 02/02/20 Office Visit Keith Craft MD [facility] 11/02/19 Office Visit Keith Craft MD [facility] 07/27/19 Office Visit Keith Craft MD [facility] 06/10/19 Office Visit Cira Brie Palma, NICOLE [facility] 04/20/19 Office Visit Keith Craft MD [facility] Showing recent visits within past 460 days with a meds authorizing provider and meeting all other requirements Future Appointments Date Type Provider Dept 06/07/20 Appointment Keith Craft MD [facility] Showing future appointments within next 90 days with a meds authorizing provider and meeting all other requirements LL MACHINE OPERATOR * Telephone Encounter - Missy Mcdonough - 05/11/2020 8:23 AM CST Received: []FAX [x]TELEPHONE CALL []MYCHART from: []PHARMACY [x]PATIENT/OTHER regarding medication management. Medication name and dose: Requested Prescriptions Pending Prescriptions Disp Refills ??? HYDROcodone-acetaminophen (NORCO) 5-325 MG Tablet 30 Tab 0 Sig: Take 1 Tab by mouth daily. Quantity: (30 day, 90 day, 3 monthly scripts) 30 Pharmacy preference for this medication: [facility]/pharmacy #[id number] - [address] Outcome: [x]Medication pended, routed to surescripts []Medication refused []Informed caller of refills at pharmacy []Additional message to medication management RN []Verbal authorization for written order to pharmacy []Additional message to provider []Verified medication with pharmacy Missy Medication Management LL MACHINE OPERATOR documented in this encounter Plan of Treatment Upcoming Encounters Date Type Department Care Team (Late st Contact Info) Description 08/27/2024 1:15 PM CDT [facility] - [facility] - [place] #2 [place] [address] Yasmin Restrepo MD #[address] [address] 09/02/2024 2:00 PM CDT [facility] 1 [place] [address] Werner Swift MD #2 [place] [address] Discharge Disposition: Discharged to home or Selfcare 10/08/2024 1:40 PM CDT [facility] [place] #2 [place] [address] Liz Capellan, DO [address] [address] 11/16/2024 1:00 PM CDT Office Visit [facility] - Pulmonology & Sleep Medicine [facility] #2 [place] [address] Werner Swift MD #2 [place] [address] documented as of this encounter Visit Diagnoses [...] - 19 07/23/2021 07/23/2021 07/24/2021 6:31 AM SCROLL MACHINE OPERATOR COVID - 19 10/19/2021 10/19/2021 10/20/2021 7:45 AM CDT Respiratory Rule Out - RPA 10/19/2021 10/19/2021 0 10/20/2021 2:10 PM CDT Stenotrophomonas maltophilia Comment:Must have a follow up respiratory sample to remove isolation flag. 10/20/2021 10/20/2021 COVID - 19 04/20/2022 04/20/2022 04/30/2022 12:1 8 AM SCROLL MACHINE OPERATOR COVID - 19 07/18/2022 07/18/2022 07/28/2022 12:1 6 AM SCROLL MACHINE OPERATOR COVID - 19 08/21/2022 08/21/2022 08/22/2022 8:31 AM CDT Respiratory Rule Out - RPA 08/21/2022 08/21/2022 0 08/22/2022 3:21 PM CDT COVID - 19 04/18/2023 04/18/2023 04/28/2023 12:1 6 AM SCROLL MACHINE OPERATOR COVID - 19 07/13/2023 07/13/2023 07/23/2023 12:1 6 AM SCROLL MACHINE OPERATOR Respiratory Rule Out - RPA 03/17/2024 03/17/2024 1 3:36 PM CDT COVID - 19 04/27/2024 04/27/2024 04/27/2024 2:19 PM SCROLL MACHINE OPERATOR Respiratory Rule-Out 07/24/2024 07/24/2024 025 2:29 PM SCROLL MACHINE OPERATOR COVID - 19 07/24/2024 07/24/2024 07/24/2024 2:29 PM SCROLL MACHINE OPERATOR Assessment Noted Time PHQ-9 Depression Total Score: 1 06/10/19 20 1:03 PM SCROLL MACHINE OPERATOR documented as of this encounter Care Teams Fuel Distribution System Operator Relationship Specialty Start Date End Date Keith rCaft MD PCP - General Family Medicine 01/14/19 12/26/23 Liz Capellan DO 2 [facility] [address] [address] PCP - General Family Medicine 12/27/23 Quang Locke DO Gastroenterology 01/18/16 Bri Rollins, KATEY [place] Marine Erector 03/07/21 05/22/23 [place] [address] [address] 05/25/21 Bri Rollins, KATEY [place] Nurse Marine Erector 03/07/21 05/23/23 Werner Swift MD #2 [place] [address] Consulting Physician Pulmonary Disease 01/30/22 Yasmin Restrepo MD #[address] [address] Consulting Physician Endocrinology 07/20/24 documented as of this encounter
--- OUTSIDE RECORDS SUMMARY | 2024-08-16 19:32 | XMS_ITS | Encounter Summary ---
Author Organization [facility] Address [address] [place] [address] Phone Care Team Providers Care Environmental Services Aide Name Role Phone Quang Locke DO Unavailable [phone] Keith Craft MD Primary Care Provider [phone] Bri Rollins RN Unavailable Unavailable Silvio Schulte MD Unavailable [phone] Bri Rollins RN Unavailable Unavailable Werner Swift MD Unavailable Liz Capellan DO Primary Care Provider [phone] Yasmin Restrepo MD Unavailable Reason for Visit * Reason Comments Medication Refill Encounter Details Date Type Department Care Team (Late st Contact Info) Description 07/26/2020 Refill [facility] #2 [place] [address] Keith Craft MD #1 [place] [address] Medication Refill Social History Tobacco Use Types [...] COVID-19? No / Unsure 07/02/2020 2:53 PM MOTORCYCLE SALES ASSOCIATE documented as of this encounter Miscellaneous [...] Outpatient Visits 1 month ago Mixed hyperlipidemia [facility] Keith Lemus MD 3 months ago Pneumonia of right upper lobe due to infectious organism [facility] Keith Lemus MD 5 months ago Acute non-recurrent maxillary sinusitis [facility] Keith Lemus MD 8 months ago Chronic prescription opiate use [facility] Keith Lemus MD 1 year ago Coronary artery disease involving lower [place] coronary artery of [place] heart without angina pectoris [facility] Keith Lemus MD Upcoming Appointments Future Appointments In [address] VACCINE CL[facility]IC [facility], [place] In 2 months Keith Craft MD [facility] Family [facility] DEHYDRATION UNIT OPERATOR - Recent and Past Visits Recent Visits Date Type Provider Dept 06/07/20 Office Visit Keith Craft MD [facility] 04/25/20 Office Visit Keith Craft MD [facility] 02/02/20 Office Visit Keith Craft MD [facility] 11/02/19 Office Visit Keith Craft MD [facility] 07/27/19 Office Visit Keith Craft MD [facility] 06/10/19 Office Visit Brie Denis [facility] [place] Showing recent visits within past 460 days with a meds authorizing provider and meeting all other requirements Future Appointments Date Type Provider Dept 10/04/20 Appointment Keith Craft MD [facility] Showing future appointments within next 90 days with a meds authorizing provider and meeting all other requirements RCYCLE SALES ASSOCIATE documented in this encounter Plan of Treatment Upcoming Encounters Date Type Department Care Team (Late st Contact Info) Description 08/27/2024 1:15 PM CDT Office Visit [facility] #2 [place] [address] Yasmin Restrepo MD #[address] [address] 09/02/2024 2:00 PM CDT [facility] 1 [place] [address] Werner Swift MD #2 [place] [address] Discharge Disposition: Discharged to home or Selfcare 10/08/2024 1:40 PM CDT [facility] [place] [address] Liz Capellan, DO 2 [facility] [facility] [address] [place] [address] 11/16/2024 1:00 PM CDT Office Visit [facility] - Pulmonology & Sleep Medicine - [place] #[address] [place] [address] Werner Swift MD #2 [place] [address] documented as of this encounter Visit Diagnoses Diagnosis Chronic low back pain, unspecified back pain laterality, unspecified whether sciatica present documented in this encounter Additional Health Concerns Infection Onset Date Last Indicated Resolved Time COVID - 19 01/25/2021 01/25/2021 01/31/2021 8:10 AM CDT Respiratory Rule Out - RPA 01/30/2021 01/30/2021 0 02/01/2021 12:45 AM CDT COVID - 19 07/23/2021 07/23/2021 07/24/2021 6:31 AM MOTORCYCLE SALES ASSOCIATE COVID - 19 10/19/2021 10/19/2021 10/20/2021 7:45 AM CDT Respiratory Rule Out - RPA 10/19/2021 10/19/2021 0 10/20/2021 2:10 PM CDT Stenotrophomonas maltophilia Comment:Must have a follow up respiratory sample to remove isolation flag. 10/20/2021 10/20/2021 COVID - 19 04/20/2022 04/20/2022 04/30/2022 12:1 8 AM MOTORCYCLE SALES ASSOCIATE COVID - 19 07/18/2022 07/18/2022 07/28/2022 12:1 6 AM MOTORCYCLE SALES ASSOCIATE COVID - 19 08/21/2022 08/21/2022 08/22/2022 8:31 AM CDT Respiratory Rule Out - RPA 08/21/2022 08/21/2022 0 08/22/2022 3:21 PM CDT COVID - 19 04/18/2023 04/18/2023 04/28/2023 12:1 6 AM MOTORCYCLE SALES ASSOCIATE COVID - 19 07/13/2023 07/13/2023 07/23/2023 12:1 6 AM MOTORCYCLE SALES ASSOCIATE Respiratory Rule Out - RPA 03/17/2024 03/17/2024 1 3:36 PM CDT COVID - 19 04/27/2024 04/27/2024 04/27/2024 2:19 PM MOTORCYCLE SALES ASSOCIATE Respiratory Rule-Out 07/24/2024 07/24/2024 025 2:29 PM MOTORCYCLE SALES ASSOCIATE COVID - 19 07/24/2024 07/24/2024 07/24/2024 2:29 PM MOTORCYCLE SALES ASSOCIATE Assessment Noted Time PHQ-9 Depression Total Score: 2 06/07/19 2:34 PM MOTORCYCLE SALES ASSOCIATE documented as of this encounter Care Teams Environmental Services Aide Relationship Specialty Start Date End Date Keith Craft MD PCP - General Family Medicine 01/14/19 12/26/23 Liz Capellan DO [address] [address] PCP - General Family Medicine 12/27/23 Quang Locke DO Gastroenterology 01/18/16 Bri Rollins RN [place] Swimming Coach Or Instructor 03/07/21 05/22/23 [place] [id number] [address] 05/25/21 Bri Rollins RN [place] Nurse Swimming Coach Or Instructor 03/07/21 05/23/23 Werner Swift MD #2 [place] [address] Consulting Physician Pulmonary Disease 01/30/22 Yasmin Restrepo MD #[address] [address] Consulting Physician Endocrinology 07/20/24 documented as of this encounter
--- OUTSIDE RECORDS SUMMARY | 2024-08-16 19:32 | XMS_ITS | Encounter Summary ---
Author Organization [facility] Address [address] [place] [address] Phone Care Team Providers Care [employer] Sound[employer] Group Leader Name Role Phone Quang Locke Oswaldo PRESLEY Unavailable [phone] Silvio Schulte MD Unavailable [phone] Werner Swift MD Unavailable Liz Capellan DO Primary Care Provider [phone] Yasmin Restrepo MD Unavailable Reason for Visit * Reason Comments Medication Refill Encounter Details Date Type Department Care Team (Late st Contact Info) Description 01/09/2024 Refill [facility] #2 [place] [id number] Keith Craft MD #1 [place] [address] Medication Refill Social History Tobacco Use Types [...] often do you attend chur ch or jew services? Never 12/27/2023 Do you belong to [...] Total Score - Questions 1-9 4 10/25 [facility] of Occupat ional Health - Occupational Stress [...] time in the past 12 m [facility], were you homeless or living in a skilled nursing (including now)? No 12/27/2023 Education Answer Date [...] encounter Miscellaneous Notes * Telephone Encounter - lGoria Cornejo RN - 01/10/2024 4:30 PM CDT The original prescriptions were reordered on 01/10/2024 by Liz Capellan DO. * Telephone Encounter - Gloria Cornejo RN - 01/10/2024 9:26 AM CDT duplicates documented in this encounter Plan of Treatment Upcoming Encounters Date Type Department Care Team (Late st Contact Info) Description 08/27/2024 1:15 PM CDT Office Visit [facility] - Endocrinology - [place] [address]2 [place] [address] Yasmin Restrepo MD #[address] [address] 09/02/2024 2:00 PM CDT [facility]ment [facility] 1 [place] [address] Werner Swift MD #2 [place] [address] Discharge Disposition: Discharged to home or Selfcare 10/08/2024 1:40 PM CDT Office Visit [facility] - Family Medicine - [place] #2 [place] [address] Liz Capellan DO [address] [address] 11/16/2024 1:00 PM CDT [facility] - [place] #2 [place] [address] Werner Swift MD #2 [place] [address] documented as of this encounter Goals Goal [...] Zones/Action plan education. I will notify my Greenhouse Transplanter if my symptoms fall in the y [...] - 19 04/27/2024 04/27/2024 04/27/2024 2:19 PM WORK CAR OPERATOR Respiratory Rule-Out 07/24/2024 07/24/2024 025 2:29 PM WORK CAR OPERATOR COVID - 19 07/24/2024 07/24/2024 07/24/2024 2:29 PM WORK CAR OPERATOR Assessment Noted Time PHQ-9 Depression Total Score: 4 11/08/19 24 9:33 AM CDT documented as of this encounter Care Teams [employer] Sound[employer] Group Leader Relationship Specialty Start Date End Date Liz Capellan DO 2 [facility] [address] [place], [place] [id number] PCP - General Family Medicine 12/27/23 Quang Locke DO Gastroenterology 01/18/16 [place] [address] [address] 05/25/21 Werner Swift MD #2 [place] [address] Consulting Physician Pulmonary Disease 01/30/22 Yasmin Restrepo MD [address] [phone] Consulting Physician Endocrinology 07/20/24 documented as of this encounter
--- OUTSIDE RECORDS SUMMARY | 2024-08-16 19:32 | XMS_ITS | Encounter Summary ---
Author Organization [facility] Address [address] [place] [address] Phone Care Team Providers Care Cotton Seed Culler Name Role Phone Quang Locke DO Unavailable [phone] Keith Craft MD Primary Care Provider [phone] Bri Rollins RN Unavailable Unavailable Silvio Schulte MD Unavailable [phone] Bri Rollins RN Unavailable Unavailable Werner Swift MD Unavailable Liz Capellan DO Primary Care Provider [phone] Yasmin Restrepo MD Unavailable Reason for Visit * Reason Comments Medication Refill Encounter Details Date Type Department Care Team (Late st Contact Info) Description 04/17/2020 Refill [facility] Family [facility] #2 [place] [address] Keith Craft MD #1 [place] [address] Medication Refill Social History Tobacco Use Types [...] 2 months ago Acute non-recurrent maxillary sinusitis [facility] - Keith Jenkins MD 5 months ago Chronic prescription opiate use [facility] Keith Lemus MD 8 months ago 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 [facility] Keith Lemus MD 10 months ago [facility] Type 2 diabetes mellitus with diabetic neuropathy, with long-term current use of insulin (HCC) [facility] Keith Lemus MD Upcoming Appointments Future Appointments In 1 month Keith Craft MD [facility] [place] [facility] CHIEF OF HOSP[facility] MEDICINE - Recent and Past Visits Recent Visits [...] 2 months ago Acute non-recurrent maxillary sinusitis [facility] Keith Lemus MD 5 months ago Chronic prescription opiate use [facility] Keith Lemus MD 8 months ago 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 [facility] Keith Lemus MD 10 months ago COPD exacerbation (HCC) [facility] Brie Vieira PAC 12 months ago Type 2 diabetes mellitus with diabetic neuropathy, with long-term current use of insulin (HCC) [facility] Keith Lemus MD Upcoming Appointments Future Appointments In 1 month Keith Craft MD [facility] Maximiliano Tesfaye [facility] CHIEF OF HOSPITAL MEDICINE - Recent and Past Visits Recent Visits [...] 2 months ago Acute non-recurrent maxillary sinusitis [facility] Keith Lemus MD 5 months ago Chronic prescription opiate use [facility] Keith Lemus MD 8 months ago 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 [facility] Keith Lemus MD 10 months ago COPD exacerbation (HCC) [facility] Brie Vieira PAC 12 months ago Type 2 diabetes mellitus with diabetic neuropathy, with long-term current use of insulin (HCC) [facility] Keith Lemus MD Upcoming Appointments Future Appointments In 1 month Keith Craft MD [facility] Maximiliano Tesfaye [facility] CHIEF OF HOSPITAL MEDICINE - Recent and Past Visits Recent Visits Date Type Provider Dept 02/02/20 Office Visit Keith Craft MD [facility] 11/02/19 Office Visit Keith Craft MD [facility] 07/27/19 Office Visit Keith Craft MD [facility] 06/10/19 Office Visit Brie Denis PAC [facility] 04/20/19 Office Visit Keith Craft MD [facility] [place] 01/14/19 Office Visit [facility] Showing recent visits within past 460 days with a meds authorizing provider and meeting all other requirements Future Appointments Date Type Provider Dept 06/07/20 Appointment Keith [facility] MD [facility] Showing future appointments within next 90 days with a meds authorizing provider and meeting all other requirements RTRAIN CALIBRATION ENGINEER documented in this encounter Plan of Treatment Upcoming Encounters Date Type Department Care Team (Late st Contact Info) Description 08/27/2024 1:15 PM CDT Office Visit [facility] - Endocrinology - [place] #2 [place] [address] Yasmin Restrepo MD #[address] [address] 09/02/2024 2:00 PM CDT Appointment [facility] Respiratory Therapy 1 [place] [address] Werner Swift MD #2 [place] [address] Discharge Disposition: Discharged to home or Selfcare 10/08/2024 1:40 PM CDT Office Visit [facility] - Family Medicine [facility] #2 [facility] [address] Liz Capellan, DO [address] [address] 11/16/2024 1:00 PM CDT Office Visit [facility] - Pulmonology & Sleep Medicine [facility] #2 [place] [address] Werner Swift MD [address] [place] [address] documented as of this encounter Visit Diagnoses [...] - 19 07/23/2021 07/23/2021 07/24/2021 6:31 AM POWERTRAIN CALIBRATION ENGINEER COVID - 19 10/19/2021 10/19/2021 10/20/2021 7:45 AM CDT Respiratory Rule Out - RPA 10/19/2021 10/19/2021 0 10/20/2021 2:10 PM CDT Stenotrophomonas maltophilia Comment:Must have a follow up respiratory sample to remove isolation flag. 10/20/2021 10/20/2021 COVID - 19 04/20/2022 04/20/2022 04/30/2022 12:1 8 AM POWERTRAIN CALIBRATION ENGINEER COVID - 19 07/18/2022 07/18/2022 07/28/2022 12:1 6 AM POWERTRAIN CALIBRATION ENGINEER COVID - 19 08/21/2022 08/21/2022 08/22/2022 8:31 AM CDT Respiratory Rule Out - RPA 08/21/2022 08/21/2022 0 08/22/2022 3:21 PM CDT COVID - 19 04/18/2023 04/18/2023 04/28/2023 12:1 6 AM POWERTRAIN CALIBRATION ENGINEER COVID - 19 07/13/2023 07/13/2023 07/23/2023 12:1 6 AM POWERTRAIN CALIBRATION ENGINEER Respiratory Rule Out - RPA 03/17/2024 03/17/2024 1 3:36 PM CDT COVID - 19 04/27/2024 04/27/2024 04/27/2024 2:19 PM POWERTRAIN CALIBRATION ENGINEER Respiratory Rule-Out 07/24/2024 07/24/2024 025 2:29 PM POWERTRAIN CALIBRATION ENGINEER COVID - 19 07/24/2024 07/24/2024 07/24/2024 2:29 PM POWERTRAIN CALIBRATION ENGINEER Assessment Noted Time PHQ-9 Depression Total Score: 1 06/10/19 20 1:03 PM POWERTRAIN CALIBRATION ENGINEER documented as of this encounter Care Teams Cotton Seed Culler Relationship Specialty Start Date End Date Keith Craft MD PCP - General Family Medicine 01/14/19 12/26/23 Liz Capellan DO [address] [address] PCP - General Family Medicine 12/27/23 Quang Locke DO Gastroenterology 01/18/16 Bri Rollins RN [place] Tool Repairer 03/07/21 05/22/23 [place] [address] [address] 05/25/21 Bri Rollins RN [place] Nurse Tool Repairer 03/07/21 05/23/23 Werner Swift MD #2 [place] [address] Consulting Physician Pulmonary Disease 01/30/22 Yasmin Restrepo MD #[address] [phone] Consulting Physician Endocrinology 07/20/24 documented as of this encounter
--- OUTSIDE RECORDS SUMMARY | 2024-08-16 19:32 | XMS_ITS | Encounter Summary ---
Author Organization [facility] Address [address] [place] [address] Phone Care Team Providers Care Release Of Information Clerk Name Role Phone Quang Locke DO Unavailable [phone] Keith Craft MD Primary Care Provider [phone] Bri Rollins RN Unavailable Unavailable Silvio Schulte MD Unavailable [phone] Bri Rollins RN Unavailable Unavailable Werner Swift MD Unavailable Liz Capellan DO Primary Care Provider [phone] Yasmin Restrepo MD Unavailable Reason for Visit * Reason Comments Medication Refill Encounter Details Date Type Department Care Team (Late st Contact Info) Description 11/06/2021 Refill [facility] #2 [place] [address] Keith Craft MD #1 [place] [address] Medication Refill Social History Tobacco Use Types [...] [facility] 05/25/21 Office Visit Marcin Anderson, PERSONAL CARE AIDE, INSPECTOR FILTER TIP [facility] [place] 05/05/21 Office [facility] Brie Denis, [facility]21 Office Visit Keith Craft MD [facility] [place] 03/23/21 Office Visit Keith Craft MD [facility] Showing recent visits within past 365 days and meeting all other requirements Future Appointments Date Type Provider Dept 12/19/21 Appointment [facility] MD [facility] Showing future appointments within next 90 days and meeting all other requirements documented in this encounter Plan of Treatment Upcoming Encounters Date Type Department Care Team (Late st Contact Info) Description 08/27/2024 1:15 PM CDT Office Visit [facility] - Endocrinology - [place] #2 [place] [address] Yasmin Restrepo MD #[address] [address] 09/02/2024 2:00 PM CDT Appointment [facility] Respiratory Therapy 1 [place] [address] Werner Swift MD #2 [place] [address] Discharge Disposition: Discharged to home or Selfcare 10/08/2024 1:40 PM CDT Office Visit [facility] - Family Medicine - [place] #2 [place] [address] Liz Capellan, DO [address] [address] 11/16/2024 1:00 PM CDT Office Visit [facility] - Pulmonology & Sleep Medicine [facility] #[address] [place] [address] Werner Swift MD [address] [place] [address] documented as of this encounter Goals Goal [...] Zones/Action plan education. I will notify my Motorcycle Mechanic Apprentice if my symptoms fall in the y [...] 19 04/20/2022 04/20/2022 04/30/2022 12:1 8 AM WARP PICKER COVID - 19 07/18/2022 07/18/2022 07/28/2022 12:1 6 AM WARP PICKER COVID - 19 08/21/2022 08/21/2022 08/22/2022 8:31 AM CDT Respiratory Rule Out - RPA 08/21/2022 08/21/2022 0 08/22/2022 3:21 PM CDT COVID - 19 04/18/2023 04/18/2023 04/28/2023 12:1 6 AM WARP PICKER COVID - 19 07/13/2023 07/13/2023 07/23/2023 12:1 6 AM WARP PICKER Respiratory Rule Out - RPA 03/17/2024 03/17/2024 1 3:36 PM CDT COVID - 19 04/27/2024 04/27/2024 04/27/2024 2:19 PM WARP PICKER Respiratory Rule-Out 07/24/2024 07/24/2024 025 2:29 PM WARP PICKER COVID - 19 07/24/2024 07/24/2024 07/24/2024 2:29 PM WARP PICKER Assessment Noted Time PHQ-9 Depression Total Score: 1 03/07/20 21 10:29 AM CDT documented as of this encounter Care Teams Release Of Information Clerk Relationship Specialty Start Date End Date Keith Craft MD PCP - General Family Medicine 01/14/19 12/26/23 Liz Capellan DO [address] [address] PCP - General Family Medicine 12/27/23 Quang Locke DO Gastroenterology 01/18/16 Bri Rollins RN [place] Motorcycle Mechanic Apprentice 03/07/21 05/22/23 [place] [address] [address] 05/25/21 Bri Rollins, KATEY [place] Nurse Motorcycle Mechanic Apprentice 03/07/21 05/23/23 Werner Swift MD #2 [place] [address] Consulting Physician Pulmonary Disease 01/30/22 Yasmin Restrepo MD [address] [address] Consulting Physician Endocrinology 07/20/24 documented as of this encounter
--- OUTSIDE RECORDS SUMMARY | 2024-08-16 19:32 | XMS_ITS | Encounter Summary ---
Author Organization [facility] Address [address] [place] [address] Phone Care Team Providers Care Senior Java Data Architect Name Role Phone Quang Locke DO Unavailable [phone] Keith Craft MD Primary Care Provider [phone] Bri Rollins RN Unavailable Unavailable Silvio Schulte MD Unavailable [phone] Bri Rollins RN Unavailable Unavailable Werner Swift MD Unavailable Liz Capellan DO Primary Care Provider [phone] Yasmin Restrepo MD Unavailable Reason for Visit * Reason Comments Medication Refill Encounter Details Date Type Department Care Team (Late st Contact Info) Description 08/30/2022 Refill [facility] #2 [place] [address] Keith Craft MD #1 [place] [address] Medication Refill Social History Tobacco Use Types [...] Provider Dept 07/18/22 Office Visit Kerri Kauffman, SIGN HANGER, NUCLEAR POWER REACTOR OPERATOR [facility] 06/07/22 Office Visit [facility] 03/02/22 Procedure Visit [facility] RETINAL IMAGING [facility] 03/02/22 Office Visit Keith Craft MD [facility] 11/03/21 Office Visit Keith Craft MD [facility] 10/19/21 Office Visit Keith Craft MD [facility] 10/05/21 Office Visit Keith Craft MD [facility] 09/08/21 [facility] recent visits within past 365 days and meeting all other requirements Future Appointments Date Type Provider Dept 09/10/22 Appointment Keith Craft MD [facility] Showing future appointments within next 90 days and meeting all other requirements Passed - Active short-acting beta agonist prescription ergocalciferol (VITAMIN D) 26929 UNIT Capsule [Pharmacy Med Name: VITAMIN D [id number] CAPSULE] 12 Capsule 0 Sig: TAKE ONE CAPSULE BY MOUTH ONE TIME WEEKLY Vitamin Supplements (Adult) Protocol Failed - 08/30/2022 10:50 AM Failed - Vitamin D less than 1.25mg Passed - Visit with relevant provider in past 12 months or upcoming 90 days Recent Visits Date Type Provider Dept 07/18/22 Office Visit Kerri Kauffman, SIGN HANGER, NUCLEAR POWER REACTOR OPERATOR [facility] [place] 06/07/22 Office Visit [facility] 03/02/22 Procedure Visit [facility]A DIABETIC RETINAL IMAGING [facility] 03/02/22 Office Visit Keith Craft MD [facility] 11/03/21 Office Visit [facility] MD [facility] 10/19/21 Office Visit Keith Craft MD [facility] 10/05/21 Office Visit Keith Craft MD [facility] 09/08/21 Office Visit [facility]rie Denis, [facility] Show[facility] recent visits within past 365 days and meeting all other requirements Future Appointments Date Type Provider Dept 09/10/22 Appointment Keith Craft MD [facility] Showing future appointments within next 90 [...] Provider Dept 07/18/22 Office Visit Kerri Kauffman, SIGN HANGER, NUCLEAR POWER REACTOR OPERATOR [facility] 06/07/22 Office Visit Keith Craft MD [facility] 03/02/22 Procedure Visit ZAINA DIABETIC RETINAL IMAGING [facility] [place] 03/02/22 Office Visit Keith Craft MD [facility] 11/03/21 Office Visit Keith Craft MD [facility] [place] 10/19/21 Office Visit Keith Craft MD [facility] [place] 10/05/21 Office Visit Keith Craft MD [facility] 09/08/21 Office Visit Brie Denis, NICOLE [facility] Showing recent visits within past 365 days and meeting all other requirements Future Appointments Date Type Provider Dept 09/10/22 Appointment Keith Craft MD [facility] Showing future appointments within next 90 days and meeting all other requirements documented in this encounter Plan of Treatment Upcoming Encounters Date Type Department Care Team (Late st Contact Info) Description 08/27/2024 1:15 PM CDT Office Visit [facility] - Endocrinology [facility] #2 [place] [address] Yasmin Restrepo MD #[address] [address] 09/02/2024 2:00 PM CDT [facility] 1 [place] [address] Werner Swift MD #2 [place] [address] Discharge Disposition: Discharged to home or Selfcare 10/08/2024 1:40 PM CDT Office Visit [facility] - Family Medicine [facility] #2 [place] [address] Liz Capellan, DO [address] [place] [address] 11/16/2024 1:00 PM CDT Office Visit [facility] - Pulmonology & Sleep Medicine - [place] #[address] [place] [address] Werner Swift MD #2 [place] [address] documented as of this encounter Goals Goal [...] Zones/Action plan education. I will notify my Practice Lead if my symptoms fall in the [...] 19 04/18/2023 04/18/2023 04/28/2023 12:1 6 AM PUBLIC RELATIONS SALES MARKETING COVID - 19 07/13/2023 07/13/2023 07/23/2023 12:1 6 AM PUBLIC RELATIONS SALES MARKETING Respiratory Rule Out - RPA 03/17/2024 03/17/2024 1 3:36 PM CDT COVID - 19 04/27/2024 04/27/2024 04/27/2024 2:19 PM PUBLIC RELATIONS SALES MARKETING Respiratory Rule-Out 07/24/2024 07/24/2024 025 2:29 PM PUBLIC RELATIONS SALES MARKETING COVID - 19 07/24/2024 07/24/2024 07/24/2024 2:29 PM PUBLIC RELATIONS SALES MARKETING Assessment Noted Time PHQ-9 Depression Total Score: 1 03/07/20 21 10:29 AM CDT documented as of this encounter Care Teams Senior Java Data Architect Relationship Specialty Start Date End Date Keith Craft MD PCP - General Family Medicine 01/14/19 12/26/23 Liz Capellan DO [address] [address] PCP - General Family Medicine 12/27/23 Quang Locke DO Gastroenterology 01/18/16 Bri Rollins RN [place] Practice Lead 03/07/21 05/22/23 [place] [address] [address] 05/25/21 Bri Rollins RN [place] Nurse Practice Lead 03/07/21 05/23/23 Werner Swift MD #[address] [place] [address] Consulting Physician Pulmonary Disease 01/30/22 Yasmin Restrepo MD #[address] [address] Consulting Physician Endocrinology 07/20/24 documented as of this encounter
--- OUTSIDE RECORDS SUMMARY | 2024-08-16 19:32 | XMS_ITS | Encounter Summary ---
Author Organization [facility] Address [address] [place] [address] Phone Care Team Providers Care Associate Dean Of Women Name Role Phone Quang Locke DO Unavailable [phone] Keith Craft MD Primary Care Provider [phone] Bri Rollins RN Unavailable Unavailable Silvio Schulte MD Unavailable [phone] Bri Rollins RN Unavailable Unavailable Werner Swift MD Unavailable Liz Capellan DO Primary Care Provider [phone] Yasmin Restrepo MD Unavailable Reason for Visit * Reason Comments Medication Refill Encounter Details Date Type Department Care Team (Late st Contact Info) Description 07/10/2021 Refill [facility] #2 [place] [address] Keith Craft MD #1 [place] [address] Medication Refill Social History Tobacco Use Types [...] Provider Dept 05/25/21 Office Visit Marcin Anderson, GLOST TILE SORTER, DISTRICT LEADER [facility] 05/05/21 Office Visit Brie Denis, PAC [facility] 04/14/21 Office Visit Keith Craft MD [facility] 03/23/21 Office Visit Keith Craft MD [facility] 02/07/21 Office Visit Keith Craft MD [facility] 02/03/21 Office Visit Brie Denis, PAC [facility] [place] 01/12/21 Office Visit Keith Craft MD [facility] 10/12/20 [facility] 10/04/20 Office Visit Keith Craft MD [facility] Showing recent visits within past 365 days and meeting all other requirements Future Appointments Date Type Provider Dept 08/14/21 Appointment Keith Craft MD [facility] Showing future appointments within next 90 days and meeting all other requirements SUPPORT OPERATOR documented in this encounter Plan of Treatment Upcoming Encounters Date Type Department Care Team (Late st Contact Info) Description 08/27/2024 1:15 PM CDT Office Visit [facility] - Endocrinology - [place] #2 [place] [address] Yasmin Restrepo MD #[address] [address] 09/02/2024 2:00 PM CDT Appointment [facility] Respiratory Therapy 1 [place] [phone] Werner Swift MD #2 [place] [address] Discharge Disposition: Discharged to home or Selfcare 10/08/2024 1:40 PM CDT Office Visit [facility] - Family Medicine - [place] #2 [place] [address] Liz Capellan, DO [address] [address] 11/16/2024 1:00 PM CDT Office Visit [facility] - Pulmonology & Sleep Medicine - [place] #2 [place] [address] Werner Swift MD #2 [place] [address] (work) documented as of this encounter Goals Goal [...] Zones/Action plan education. I will notify my Print Shop Stenographer if my symptoms fall in the y [...] - 19 07/23/2021 07/23/2021 07/24/2021 6:31 AM CELL SUPPORT OPERATOR COVID - 19 10/19/2021 10/19/2021 10/20/2021 7:45 AM CDT Respiratory Rule Out - RPA 10/19/2021 10/19/2021 0 10/20/2021 2:10 PM CDT Stenotrophomonas maltophilia Comment:Must have a follow up respiratory sample to remove isolation flag. 10/20/2021 10/20/2021 COVID - 19 04/20/2022 04/20/2022 04/30/2022 12:1 8 AM CELL SUPPORT OPERATOR COVID - 19 07/18/2022 07/18/2022 07/28/2022 12:1 6 AM CELL SUPPORT OPERATOR COVID - 19 08/21/2022 08/21/2022 08/22/2022 8:31 AM CDT Respiratory Rule Out - RPA 08/21/2022 08/21/2022 0 08/22/2022 3:21 PM CDT COVID - 19 04/18/2023 04/18/2023 04/28/2023 12:1 6 AM CELL SUPPORT OPERATOR COVID - 19 07/13/2023 07/13/2023 07/23/2023 12:1 6 AM CELL SUPPORT OPERATOR Respiratory Rule Out - RPA 03/17/2024 03/17/2024 1 3:36 PM CDT COVID - 19 04/27/2024 04/27/2024 04/27/2024 2:19 PM CELL SUPPORT OPERATOR Respiratory Rule-Out 07/24/2024 07/24/2024 025 2:29 PM CELL SUPPORT OPERATOR COVID - 19 07/24/2024 07/24/2024 07/24/2024 2:29 PM CELL SUPPORT OPERATOR Assessment Noted Time PHQ-9 Depression Total Score: 1 03/07/20 21 10:29 AM CDT documented as of this encounter Care Teams Associate Dean Of Women Relationship Specialty Start Date End Date Keith Craft MD PCP - General Family Medicine 01/14/19 12/26/23 Liz Capellan DO [address] [address] PCP - General Family Medicine 12/27/23 Quang Locke DO Gastroenterology 01/18/16 Bri Rollins RN [place] Print Shop Stenographer 03/07/21 05/22/23 [place] [id number] [address] 05/25/21 Bri Rollins, RN [place] Nurse Print Shop Stenographer 03/07/21 05/23/23 Werner Swift MD #2 [place] [address] Consulting Physician Pulmonary Disease 01/30/22 Yasmin Restrepo MD #[address] [address] Consulting Physician Endocrinology 07/20/24 documented as of this encounter
--- OUTSIDE RECORDS SUMMARY | 2024-08-16 19:32 | XMS_ITS | Encounter Summary ---
Author Organization [facility] Address [address] [place] [address] Phone Care Team Providers Care Permastone Mechanic Name Role Phone Quang Locke DO Unavailable [phone] Keith Craft MD Primary Care Provider [phone] Bri Rollins RN Unavailable Unavailable Silvio Schulte MD Unavailable Bri Rollins RN Unavailable Unavailable Werner Swift MD Unavailable Liz Capellan DO Primary Care Provider [phone] Yasmin Restrepo MD Unavailable Reason for Visit * Reason Comments Medication Refill Encounter Details Date Type Department Care Team (Late st Contact Info) Description 03/03/2020 Refill [facility] Medicine [facility] #2 [place] [address] Keith Craft MD #1 [place] [address] Medication Refill Social History Tobacco Use Types [...] 1 month ago Acute non-recurrent maxillary sinusitis [facility] Keith Lemus MD 4 months ago Chronic prescription opiate use [facility] Keith Lemus MD 7 months ago Coronary artery disease involving [place] coronary artery of [place] heart without angina pectoris [facility] Keith Lemus MD 8 months ago COPD exacerbation (HCC) [facility] Brie Vieira PAC 10 months ago Type 2 diabetes mellitus with diabetic neuropathy, with long-term current use of insulin (HCC) [facility] Keith Lemus MD Upcoming Appointments Future Appointments In 3 months Keith Craft MD [facility] - Recent and Past Visits Recent Visits Date Type Provider Dept 02/02/20 [facility] 07/27/19 Office Visit [facility] 06/10/19 Office Visit Adolfomodesto Brie PalmaNICOLE [facility] 04/20/19 Office Visit [facility] 01/14/19 Office Visit Keith Craft MD [facility] Showing recent visits within past 460 days [...] Description 08/27/2024 1:15 PM CDT Office Visit [facility] Medical [facility] - Endocrinology [facility] #2 [place] [address] Yasmin Restrepo MD #[address] [address] 09/02/2024 2:00 PM CDT Appointment [facility] Respiratory Therapy 1 [place] [address] Werner Swift MD #2 [place] [address] Discharge Disposition: Discharged to home or Selfcare 10/08/2024 1:40 PM CDT Office Visit [facility] Medical Group - Family Medicine [facility] #2 [place] [address] Liz Capellan, DO [address] [address] 11/16/2024 1:00 PM CDT Office Visit [facility] - Pulmonology & Sleep Medicine [facility] #[address] [place] [address] Werner Swift MD #2 [place] [address] documented as of this encounter Visit Diagnoses Diagnosis Anxiety and depression Dysthymic disorder documented in this encounter Additional Health Concerns Infection Onset Date Last Indicated Resolved Time COVID - 19 01/25/2021 01/25/2021 01/31/2021 8:10 AM CDT Respiratory Rule Out - RPA 01/30/2021 01/30/2021 0 02/01/2021 12:45 AM CDT COVID - 19 07/23/2021 07/23/2021 07/24/2021 6:31 AM ASSEMBLING MACHINE OPERATOR COVID - 19 10/19/2021 10/19/2021 10/20/2021 7:45 AM CDT Respiratory Rule Out - RPA 10/19/2021 10/19/2021 0 10/20/2021 2:10 PM CDT Stenotrophomonas maltophilia Comment:Must have a follow up respiratory sample to remove isolation flag. 10/20/2021 10/20/2021 COVID - 19 04/20/2022 04/20/2022 04/30/2022 12:1 8 AM ASSEMBLING MACHINE OPERATOR COVID - 19 07/18/2022 07/18/2022 07/28/2022 12:1 6 AM ASSEMBLING MACHINE OPERATOR COVID - 19 08/21/2022 08/21/2022 08/22/2022 8:31 AM CDT Respiratory Rule Out - RPA 08/21/2022 08/21/2022 0 08/22/2022 3:21 PM CDT COVID - 19 04/18/2023 04/18/2023 04/28/2023 12:1 6 AM ASSEMBLING MACHINE OPERATOR COVID - 19 07/13/2023 07/13/2023 07/23/2023 12:1 6 AM ASSEMBLING MACHINE OPERATOR Respiratory Rule Out - RPA 03/17/2024 03/17/2024 1 3:36 PM CDT COVID - 19 04/27/2024 04/27/2024 04/27/2024 2:19 PM ASSEMBLING MACHINE OPERATOR Respiratory Rule-Out 07/24/2024 07/24/2024 025 2:29 PM ASSEMBLING MACHINE OPERATOR COVID - 19 07/24/2024 07/24/2024 07/24/2024 2:29 PM ASSEMBLING MACHINE OPERATOR Assessment Noted Time PHQ-9 Depression Total Score: 1 06/10/19 20 1:03 PM ASSEMBLING MACHINE OPERATOR documented as of this encounter Care Teams Permastone Mechanic Relationship Specialty Start Date End Date Keith Craft MD PCP - General Family Medicine 01/14/19 12/26/23 Liz Capellan DO [address] [address] PCP - General Family Medicine 12/27/23 Quang Locke DO Gastroenterology 01/18/16 Bri Rollins, RN [place] Dog Daycare Provider 03/07/21 05/22/23 [place] [id number] [address] 05/25/21 Bri Rollins, RN [place] Nurse Dog Daycare Provider 03/07/21 05/23/23 Werner Swift MD #2 [place] [address] Consulting Physician Pulmonary Disease 01/30/22 Yasmin Restrepo MD #[address] [phone] Consulting Physician Endocrinology 07/20/24 documented as of this encounter
--- OUTSIDE RECORDS SUMMARY | 2024-08-16 19:32 | XMS_ITS | Encounter Summary ---
Author Organization [facility] Address [address] [place] [address] Phone Care Team Providers Care Order Department Supervisor Name Role Phone Quang Locke DO Unavailable Keith Craft MD Primary Care Provider [phone] Bri Rollins RN Unavailable Unavailable Silvio Schulte MD Unavailable [phone] Bri Rollins RN Unavailable Unavailable Werner Swift MD Unavailable Liz Capellan DO Primary Care Provider [phone] Yasmin Restrepo MD Unavailable Reason for Visit * Reason Comments Medication Refill Encounter Details Date Type Department Care Team (Late st Contact Info) Description 04/02/2023 Refill [facility] #2 [place] [address] Keith Craft MD #1 [place] [address] Medication Refill Social History Tobacco Use Types [...] Original prescriptions ordered today by Dr Craft. L D RN * Telephone Encounter - Gloria Cornejo RN - 04/02/2023 3:13 PM CST duplicates L D RN documented in this encounter Plan of Treatment Upcoming Encounters Date Type Department Care Team (Late st Contact Info) Description 08/27/2024 1:15 PM CDT Office Visit [facility] - Endocrinology [facility] #2 [place] [address] Yasmin Restrepo MD #[address] [phone] 09/02/2024 2:00 PM CDT [facility] 1 [place] [address] Werner Swift MD #2 [place] [phone] Discharge Disposition: Discharged to home or Selfcare 10/08/2024 1:40 PM CDT Office Visit [facility] - Family Medicine - [place] #[address] [place] [address] Liz Capellan, DO 2 [facility] [address] [address] 11/16/2024 1:00 PM CDT Office Visit [facility] - Pulmonology & Sleep Medicine [facility] #2 [place] [address] Werner Swift MD #2 [place] [address] documented as of this encounter Goals Goal [...] Zones/Action plan education. I will notify my Automobile Contract Clerk if my symptoms fall in the [...] 04/18/2023 04/18/2023 04/28/2023 12:1 6 AM L D RN COVID - 19 07/13/2023 07/13/2023 07/23/2023 12:1 6 AM L D RN Respiratory Rule Out - RPA 03/17/2024 03/17/2024 1 3:36 PM CDT COVID - 19 04/27/2024 04/27/2024 04/27/2024 2:19 PM L D RN Respiratory Rule-Out 07/24/2024 07/24/2024 025 2:29 PM L D RN COVID - 19 07/24/2024 07/24/2024 07/24/2024 2:29 PM L D RN Assessment Noted Time PHQ-9 Depression Total Score: 1 03/07/20 21 10:29 AM CDT documented as of this encounter Care Teams Order Department Supervisor Relationship Specialty Start Date End Date Keith Craft MD PCP - General Family Medicine 01/14/19 12/26/23 Liz Capellan DO [address] [address] PCP - General Family Medicine 12/27/23 Quang Locke DO Gastroenterology 01/18/16 Bri Rollins RN [place] Automobile Contract Clerk 03/07/21 05/22/23 [place] [address] [address] 05/25/21 Bri Rollins, RN [place] Nurse Automobile Contract Clerk 03/07/21 05/23/23 Werner Swift MD #2 [place] [address] Consulting Physician Pulmonary Disease 01/30/22 Yasmin Restrepo MD #[address] [address] Consulting Physician Endocrinology 07/20/24 documented as of this encounter
--- OUTSIDE RECORDS SUMMARY | 2024-08-16 19:32 | XMS_ITS | Encounter Summary ---
Author Organization [facility] Address [address] [place] [address] Phone Care Team Providers Care Instructor Looping Name Role Phone Quang Locke DO Unavailable [phone] Keith Craft MD Primary Care Provider [phone] Bri Rollins RN Unavailable Unavailable Silvio Schulte MD Unavailable [phone] Bri Rollins RN Unavailable Unavailable Werner Swift MD Unavailable Liz Capellan DO Primary Care Provider [phone] Yasmin Restrepo MD Unavailable Reason for Visit * Reason Comments Medication Refill Encounter Details Date Type Department Care Team (Late st Contact Info) Description 07/01/2020 Refill [facility] #2 [place] [address] Yonathan Bonilla MD #[address] [address] Medication Refill Social History Tobacco Use Types [...] COVID-19? No / Unsure 07/02/2020 2:53 PM DIVORCE ATTORNEY documented as of this encounter Miscellaneous Notes [...] Outpatient Visits 3 weeks ago Mixed hyperlipidemia [facility] Keith Lemus MD 2 months ago Pneumonia of right upper lobe due to infectious organism [facility] Keith Lemus MD 5 months ago Acute non-recurrent maxillary sinusitis [facility] Keith Lemus MD 8 months ago Chronic prescription opiate use [facility] Keith Lemus MD 11 months ago Coronary artery disease involving [place] coronary artery of [place] heart without angina pectoris [facility] Keith Lemus MD Upcoming Appointments Future Appointments In 3 months Keith Craft MD [facility] KRISTOFER MckeonC SENIOR MATERIALS ANALYST - Recent and Past Visits Recent Visits Date Type Provider Dept 06/07/20 [facility] 04/25[facility]20 Office Visit Keith Craft MD [facility] 02/02/20 Office Visit Keith Craft MD [facility] 11/02/19 Office Visit Keith Craft MD [facility] 07/27/19 Office Visit Keith Craft MD [facility] 06/10/19 Office Visit Analiamanny Brie Palma, [facility] [place] 04/20/19 Office Visit Keith Craft MD [facility] Showing recent visits within past 460 days with a meds authorizing provider and meeting all other requirements Future Appointments No visits were found meeting these conditions. Showing future appointments within next 90 days with a meds authorizing provider and meeting all other requirements RCE ATTORNEY documented in this encounter Plan of Treatment Upcoming Encounters Date Type Department Care Team (Late st Contact Info) Description 08/27/2024 1:15 PM CDT [facility] #2 [place] [address] Yasmin Restrepo MD #[address] [address] 09/02/2024 2:00 PM CD[facility] 1 [place] [address] Werner Swift MD #2 [place] [address] Discharge Disposition: Discharged to home or Selfcare 10/08/2024 1:40 PM CDT Office Visit [facility] #2 [place] [address] Liz Capellan, DO 2 [facility] [address] [place] [address] 11/16/2024 1:00 PM CDT [facility] - [place] #2 [place] [address] Werner Swift MD #2 [place] [address] documented as of this encounter Visit Diagnoses Diagnosis Anxiety and depression Dysthymic disorder documented in this encounter Additional Health Concerns Infection Onset Date Last Indicated Resolved Time COVID - 19 01/25/2021 01/25/2021 01/31/2021 8:10 AM CDT Respiratory Rule Out - RPA 01/30/2021 01/30/2021 0 02/01/2021 12:45 AM CDT COVID - 19 07/23/2021 07/23/2021 07/24/2021 6:31 AM DIVORCE ATTORNEY COVID - 19 10/19/2021 10/19/2021 10/20/2021 7:45 AM CDT Respiratory Rule Out - RPA 10/19/2021 10/19/2021 0 10/20/2021 2:10 PM CDT Stenotrophomonas maltophilia Comment:Must have a follow up respiratory sample to remove isolation flag. 10/20/2021 10/20/2021 COVID - 19 04/20/2022 04/20/2022 04/30/2022 12:1 8 AM DIVORCE ATTORNEY COVID - 19 07/18/2022 07/18/2022 07/28/2022 12:1 6 AM DIVORCE ATTORNEY COVID - 19 08/21/2022 08/21/2022 08/22/2022 8:31 AM CDT Respiratory Rule Out - RPA 08/21/2022 08/21/2022 0 08/22/2022 3:21 PM CDT COVID - 19 04/18/2023 04/18/2023 04/28/2023 12:1 6 AM DIVORCE ATTORNEY COVID - 19 07/13/2023 07/13/2023 07/23/2023 12:1 6 AM DIVORCE ATTORNEY Respiratory Rule Out - RPA 03/17/2024 03/17/2024 1 3:36 PM CDT COVID - 19 04/27/2024 04/27/2024 04/27/2024 2:19 PM DIVORCE ATTORNEY Respiratory Rule-Out 07/24/2024 07/24/2024 025 2:29 PM DIVORCE ATTORNEY COVID - 19 07/24/2024 07/24/2024 07/24/2024 2:29 PM DIVORCE ATTORNEY Assessment Noted Time PHQ-9 Depression Total Score: 2 06/07/19 2:34 PM DIVORCE ATTORNEY documented as of this encounter Care Teams Instructor Looping Relationship Specialty Start Date End Date Keith Craft MD PCP - General Family Medicine 01/14/19 12/26/23 Liz Capellan DO [address] [address] PCP - General Family Medicine 12/27/23 Quang Locke DO Gastroenterology 01/18/16 Bri Rollins RN [place] Lab Coordinator 03/07/21 05/22/23 [place] [address] [address] 05/25/21 Bri Rollins RN [place] Nurse Lab Coordinator 03/07/21 05/23/23 Werner Swift MD #2 [place] [address] Consulting Physician Pulmonary Disease 01/30/22 Yasmin Restrepo MD [address] [address] Consulting Physician Endocrinology 07/20/24 documented as of this encounter
--- OUTSIDE RECORDS SUMMARY | 2024-08-16 19:32 | XMS_ITS | Encounter Summary ---
Author Organization [facility] Address [address] [place] [address] Phone Care Team Providers Care Director Of Institutional Research Name Role Phone Quang Locke DO Unavailable [phone] Ketih Craft MD Primary Care Provider Bri Rollins RN Unavailable Unavailable Silvio Schulte MD Unavailable [phone] Bri Rollins RN Unavailable Unavailable Werner Swift MD Unavailable Liz Capellan DO Primary Care Provider [phone] Yasmin Restrepo MD Unavailable Reason for Visit * Reason Comments Medication Refill Encounter Details Date Type Department Care Team (Late st Contact Info) Description 03/20/2023 [facility]ill [facility] [address] [place] [address] Keith Craft MD #1 [place] [address] Medication Refill Social History Tobacco Use Types [...] Group - Endocrinology - [place] [address] [place] [address] Yasmin Restrepo MD [address] [address] 09/02/2024 2:00 PM CDT Appointment [facility] Respiratory Therapy 1 [place] [address] Werner Swift MD #2 [place] [address] Discharge Disposition: Discharged to home or Selfcare 10/08/2024 1:40 PM CDT Office Visit [facility] Family Medicine [facility] #2 [place] [address] Liz Capellan, DO [address] [address] 11/16/2024 1:00 PM CDT Office Visit [facility] - Pulmonology & Sleep Medicine [facility] #2 [place] [address] Werner Swift MD #2 [place] [address] documented as of this encounter Goals Goal [...] Zones/Action plan education. I will notify my Investigator Cash Shortage if my symptoms fall in the y [...] 19 04/18/2023 04/18/2023 04/28/2023 12:1 6 AM SHIRT PRESSER COVID - 19 07/13/2023 07/13/2023 07/23/2023 12:1 6 AM SHIRT PRESSER Respiratory Rule Out - RPA 03/17/2024 03/17/2024 1 3:36 PM CDT COVID - 19 04/27/2024 04/27/2024 04/27/2024 2:19 PM SHIRT PRESSER Respiratory Rule-Out 07/24/2024 07/24/2024 025 2:29 PM SHIRT PRESSER COVID - 19 07/24/2024 07/24/2024 07/24/2024 2:29 PM SHIRT PRESSER Assessment Noted Time PHQ-9 Depression Total Score: 1 03/07/20 21 10:29 AM CDT documented as of this encounter Care Teams Director Of Institutional Research Relationship Specialty Start Date End Date Keith Craft MD PCP - General Family Medicine 01/14/19 12/26/23 Liz Capellan DO 2 [place] [address] PCP - General Family Medicine 12/27/23 Quang Locke DO Gastroenterology 01/18/16 Bri Rollins, RN [place] Investigator Cash Shortage 03/07/21 05/22/23 [place] [address] [address] 05/25/21 Bri Rollins, KATEY [place] Nurse Investigator Cash Shortage 03/07/21 05/23/23 Werner Swift MD #2 [place] [address] Consulting Physician Pulmonary Disease 01/30/22 Yasmin Restrepo MD #[address] [address] Consulting Physician Endocrinology 07/20/24 documented as of this encounter
--- OUTSIDE RECORDS SUMMARY | 2024-08-16 19:32 | XMS_ITS | Encounter Summary ---
Author Organization [facility] Address [address] [place] [address] Phone Care Team Providers Care Photography Editor Name Role Phone Quang Locke DO Unavailable Keith Craft MD Primary Care Provider [phone] Bri Rollins RN Unavailable Unavailable Silvio Schulte MD Unavailable [phone] Bri Rollins RN Unavailable Unavailable Werner Swift MD Unavailable Liz Capellan DO Primary Care Provider [phone] Yasmin Restrepo MD Unavailable Reason for Visit * Reason Comments Medication Refill Encounter Details Date Type Department Care Team (Late st Contact Info) Description 07/24/2021 Refill [facility] #2 [place] [address] Keith Craft MD #1 [place] [address] Medication Refill Social History Tobacco Use Types [...] COVID-19? No / Unsure 07/23/2021 10:30 AM MANAGER PROVIDER RELATIONS documented as of this encounter Miscellaneous Notes * Telephone Encounter - Gloria Cornejo RN - 07/25/2021 1:51 PM CST Medication failed the protocol, provider to review and approve the medication order if appropriate. Requested Prescriptions Pending Prescriptions Disp Refills ergocalciferol (VITAMIN D) 63503 UNIT Capsule [Pharmacy Med Name: VITAMIN D 63174WOD CAPSULE] 12 Capsule 0 Sig: TAKE ONE CAPSULE BY MOUTH ONE TIME WEEKLY Vitamin Supplements (Adult) Protocol Failed - 07/24/2021 1:17 PM Failed - Vitamin D less than 1.25mg Passed - Visit with relevant provider in past 12 months or upcoming 90 days Recent Visits Date Type Provider Dept 05/25/21 Office Visit Marcin Anderson, JAILER, TRANSACTION MANAGER [facility] 05/05/21 Office Visit Brie Denis, PAC [facility] 04/14/21 Office Visit Keith Craft MD [facility] 03/23/21 Office Visit Keith Craft MD [facility] 02/07/21 Office Visit Keith Craft MD [facility] 02/03/21 Office Visit Brie Denis, PAC [facility] 01/12/21 Office Visit Keith Craft MD [facility] 10/12/20 Office Visit Keith Craft MD [facility] 10/04/20 Office Visit Keith Craft MD [facility] Showing recent visits within past 365 days and meeting all other requirements Future Appointments Date Type Provider Dept 08/14/21 Appointment Keith Craft MD [facility] [place] Showing future appointments within next 90 days and meeting all other requirements GER PROVIDER RELATIONS documented in this encounter Plan of Treatment Upcoming Encounters Date Type Department Care Team (Late st Contact Info) Description 08/27/2024 1:15 PM CDT Office Visit [facility] - Endocrinology - [place] #2 [facility] [place] [address] Yasmin Restrepo MD #[address] [address] 09/02/2024 2:00 PM CDT Appointment [facility] Respiratory Therapy 1 [place] [address] Werner Swift MD #2 [place] [address] Discharge Disposition: Discharged to home or Selfcare 10/08/2024 1:40 PM CDT Office Visit [facility] Medical [facility] - Family Medicine - [place] #2 [place] [address] Liz Capellan, DO 2 [facility] [address] [place] [address] 11/16/2024 1:00 PM CDT Office Visit [facility] - Pulmonology & Sleep Medicine - [place] [address]2 [facility] [place] [address] Werner Swift MD #2 [place] [address] documented as of this encounter Goals Goal [...] Zones/Action plan education. I will notify my Assistant Warehouse Manager if my symptoms fall in the [...] - 19 07/23/2021 07/23/2021 07/24/2021 6:31 AM MANAGER PROVIDER RELATIONS COVID - 19 10/19/2021 10/19/2021 10/20/2021 7:45 AM CDT Respiratory Rule Out - RPA 10/19/2021 10/19/2021 0 10/20/2021 2:10 PM CDT Stenotrophomonas maltophilia Comment:Must have a follow up respiratory sample to remove isolation flag. 10/20/2021 10/20/2021 COVID - 19 04/20/2022 04/20/2022 04/30/2022 12:1 8 AM MANAGER PROVIDER RELATIONS COVID - 19 07/18/2022 07/18/2022 07/28/2022 12:1 6 AM MANAGER PROVIDER RELATIONS COVID - 19 08/21/2022 08/21/2022 08/22/2022 8:31 AM CDT Respiratory Rule Out - RPA 08/21/2022 08/21/2022 0 08/22/2022 3:21 PM CDT COVID - 19 04/18/2023 04/18/2023 04/28/2023 12:1 6 AM MANAGER PROVIDER RELATIONS COVID - 19 07/13/2023 07/13/2023 07/23/2023 12:1 6 AM MANAGER PROVIDER RELATIONS Respiratory Rule Out - RPA 03/17/2024 03/17/2024 1 3:36 PM CDT COVID - 19 04/27/2024 04/27/2024 04/27/2024 2:19 PM MANAGER PROVIDER RELATIONS Respiratory Rule-Out 07/24/2024 07/24/2024 025 2:29 PM MANAGER PROVIDER RELATIONS COVID - 19 07/24/2024 07/24/2024 07/24/2024 2:29 PM MANAGER PROVIDER RELATIONS Assessment Noted Time PHQ-9 Depression Total Score: 1 03/07/20 21 10:29 AM CDT documented as of this encounter Care Teams Photography Editor Relationship Specialty Start Date End Date Keith Craft MD PCP - General Family Medicine 01/14/19 12/26/23 Liz Capellan DO [address] [address] PCP - General Family Medicine 12/27/23 Quang Locke DO Gastroenterology 01/18/16 Bri Rollins RN [place] Assistant Warehouse Manager 03/07/21 05/22/23 [place] [id number] [address] 05/25/21 Bri Rollins RN [place] Nurse Assistant Warehouse Manager 03/07/21 05/23/23 Werner Swift MD #2 [place] [address] Consulting Physician Pulmonary Disease 01/30/22 Yasmin Restrepo MD #[address] [address] Consulting Physician Endocrinology 07/20/24 documented as of this encounter
--- OUTSIDE RECORDS SUMMARY | 2024-08-16 19:32 | XMS_ITS | Encounter Summary ---
Author Organization [facility] Address [address] [place] [address] Phone Care Team Providers Care Bench Chemist Name Role Phone Quang Locke DO Unavailable [phone] Keith Craft MD Primary Care Provider [phone] Bri Rollins RN Unavailable Unavailable Silvio Schulet MD Unavailable [phone] Bri Rollins RN Unavailable Unavailable Werner Swift MD Unavailable Liz Capellan DO Primary Care Provider [phone] Yasmin Restrepo MD Unavailable Reason for Visit * Reason Comments Medication Refill Encounter Details Date Type Department Care Team (Late st Contact Info) Description 05/18/2021 Refill [facility] - Family Medicine [facility] #2 [place] [address] Keith Craft MD #1 [place] [address] Medication Refill Social History Tobacco Use Types [...] COVID-19? No / Unsure 05/05/2021 3:02 PM SECURITY ANALYST documented as of this encounter Miscellaneous Notes [...] [place] 02/03/21 Office Visit Brie Denis PAC [facility] [...] Ref Range Status 04/18/2021 >60 >=60 Final RITY ANALYST documented in this encounter Plan of Treatment Upcoming Encounters Date Type Department Care Team (Late st Contact Info) Description 08/27/2024 1:15 PM CDT Office Visit [facility] - Endocrinology - [place] #2 [facility] [place] [address] Yasmin Restrepo MD #2 [facility] [address] [place] [address] 09/02/2024 2:00 PM CDT [facility] 1 [place] [address] Werner Swift MD #2 [place] [address] Discharge Disposition: Discharged to home or Selfcare 10/08/2024 1:40 PM CDT Office Visit [facility] - Family Medicine - [place] #2 [place] [address] Liz Capellan, DO 2 [facility] [address] [place] [address] 11/16/2024 1:00 PM CDT [facility]2 [facility] [place] [address] Werner Swift MD #2 [place] [address] documented as of this encounter Goals Goal [...] Zones/Action plan education. I will notify my Hand Drawer In if my symptoms fall in the y [...] - 19 07/23/2021 07/23/2021 07/24/2021 6:31 AM SECURITY ANALYST COVID - 19 10/19/2021 10/19/2021 10/20/2021 7:45 AM CDT Respiratory Rule Out - RPA 10/19/2021 10/19/2021 0 10/20/2021 2:10 PM CDT Stenotrophomonas maltophilia Comment:Must have a follow up respiratory sample to remove isolation flag. 10/20/2021 10/20/2021 COVID - 19 04/20/2022 04/20/2022 04/30/2022 12:1 8 AM SECURITY ANALYST COVID - 19 07/18/2022 07/18/2022 07/28/2022 12:1 6 AM SECURITY ANALYST COVID - 19 08/21/2022 08/21/2022 08/22/2022 8:31 AM CDT Respiratory Rule Out - RPA 08/21/2022 08/21/2022 0 08/22/2022 3:21 PM CDT COVID - 19 04/18/2023 04/18/2023 04/28/2023 12:1 6 AM SECURITY ANALYST COVID - 19 07/13/2023 07/13/2023 07/23/2023 12:1 6 AM SECURITY ANALYST Respiratory Rule Out - RPA 03/17/2024 03/17/2024 1 3:36 PM CDT COVID - 19 04/27/2024 04/27/2024 04/27/2024 2:19 PM SECURITY ANALYST Respiratory Rule-Out 07/24/2024 07/24/2024 025 2:29 PM SECURITY ANALYST COVID - 19 07/24/2024 07/24/2024 07/24/2024 2:29 PM SECURITY ANALYST Assessment Noted Time PHQ-9 Depression Total Score: 1 03/07/20 21 10:29 AM CDT documented as of this encounter Care Teams Bench Chemist Relationship Specialty Start Date End Date Keith Craft MD PCP - General Family Medicine 01/14/19 12/26/23 Liz Capellan DO [address] [address] PCP - General Family Medicine 12/27/23 Quang Locke DO Gastroenterology 01/18/16 Bri Rollins RN [place] Hand Drawer In 03/07/21 05/22/23 [place] [id number] [address] 05/25/21 Bri Rollins RN [place] Nurse Hand Drawer In 03/07/21 05/23/23 Werner Swift MD #2 [place] [address] Consulting Physician Pulmonary Disease 01/30/22 Yasmin Restrepo MD #[address] [address] Consulting Physician Endocrinology 07/20/24 documented as of this encounter
--- OUTSIDE RECORDS SUMMARY | 2024-08-16 19:32 | XMS_ITS | Encounter Summary ---
Author Organization [facility] Address [address] [place] [address] Phone Care Team Providers Care Director New Product Name Role Phone Quang Locke DO Unavailable [phone] Keith Craft MD Primary Care Provider [phone] Bri Rollins RN Unavailable Unavailable Silvio Schulte MD Unavailable [phone] Bri Rollins RN Unavailable Unavailable Werner Swift MD Unavailable Liz Capellan DO Primary Care Provider [phone] Yasmin Restrepo MD Unavailable Reason for Visit * Reason Comments Medication Refill Encounter Details Date Type Department Care Team (Late st Contact Info) Description 07/28/2020 Refill [facility] - Family Medicine [facility] #2 [place] [address] Keith Craft MD #1 [place] [address] Medication Refill Social History Tobacco Use Types [...] COVID-19? No / Unsure 07/30/2020 3:25 PM DOPE HEATER documented as of this encounter Miscellaneous Notes [...] Outpatient Visits 1 month ago Mixed hyperlipidemia [facility] - Keith Jenkins MD 3 months ago Pneumonia of right upper lobe due to infectious organism [facility] Keith Lemus MD 5 months ago Acute non-recurrent maxillary sinusitis [facility] Keith Lemus MD 8 months ago Chronic prescription opiate use [facility] Keith Lemus MD 1 year ago Coronary artery disease involving [place] coronary artery of [place] heart without angina pectoris [facility] Keith Lemus MD Upcoming Appointments Future Appointments In [address] [facility]ACC[facility] - Family Medicine - [facility] [place] In 2 months Keith Craft MD [facility] FAST FOOD SHIFT LEAD - Recent and Past Visits Recent Visits Date Type Provider Dept 06/07/20 Office Visit Keith Craft MD [facility] 04/25/20 Office Visit Keith Craft MD [facility] 02/02/20 Office Visit Keith Craft MD [facility] 11/02/19 Office Visit Keith Craft MD [facility] 07/27/19 Office Visit Keith Craft MD [facility] 06/10/19 Office Visit [facility]rie Denis[facility] Showing recent visits within past 460 days with a meds authorizing provider and meeting all other requirements Future Appointments Date Type Provider Dept 10/04/20 Appointment Keith Craft MD [facility] Showing future appointments within next 90 days with a meds authorizing provider and meeting all other requirements HEATER documented in this encounter Plan of Treatment Upcoming Encounters Date Type Department Care Team (Late st Contact Info) Description 08/27/2024 1:15 PM CDT Office Visit [facility] Medical [facility] - Endocrinology [facility] #2 [place] [address] Yasmin Restrepo MD #[address] [address] 09/02/2024 2:00 PM CDT Appointment [facility] Respiratory Therapy 1 [place] [phone] Werner Swift MD #2 [place] [address] Discharge Disposition: Discharged to home or Selfcare 10/08/2024 1:40 PM CDT Office Visit [facility] Medical Group - Family Medicine - [place] #[address] [place] [address] Liz Capellan, DO 2 [facility] [address] [place] [address] 11/16/2024 1:00 PM CDT Office Visit [facility] - Pulmonology & Sleep Medicine - [place] #2 [place] [address] Werner Swift MD #2 [place] [address] documented as of this encounter Visit Diagnoses Diagnosis Anxiety and depression Dysthymic disorder documented in this encounter Additional Health Concerns Infection Onset Date Last Indicated Resolved Time COVID - 19 01/25/2021 01/25/2021 01/31/2021 8:10 AM CDT Respiratory Rule Out - RPA 01/30/2021 01/30/2021 0 02/01/2021 12:45 AM CDT COVID - 19 07/23/2021 07/23/2021 07/24/2021 6:31 AM DOPE HEATER COVID - 19 10/19/2021 10/19/2021 10/20/2021 7:45 AM CDT Respiratory Rule Out - RPA 10/19/2021 10/19/2021 0 10/20/2021 2:10 PM CDT Stenotrophomonas maltophilia Comment:Must have a follow up respiratory sample to remove isolation flag. 10/20/2021 10/20/2021 COVID - 19 04/20/2022 04/20/2022 04/30/2022 12:1 8 AM DOPE HEATER COVID - 19 07/18/2022 07/18/2022 07/28/2022 12:1 6 AM DOPE HEATER COVID - 19 08/21/2022 08/21/2022 08/22/2022 8:31 AM CDT Respiratory Rule Out - RPA 08/21/2022 08/21/2022 0 08/22/2022 3:21 PM CDT COVID - 19 04/18/2023 04/18/2023 04/28/2023 12:1 6 AM DOPE HEATER COVID - 19 07/13/2023 07/13/2023 07/23/2023 12:1 6 AM DOPE HEATER Respiratory Rule Out - RPA 03/17/2024 03/17/2024 1 3:36 PM CDT COVID - 19 04/27/2024 04/27/2024 04/27/2024 2:19 PM DOPE HEATER Respiratory Rule-Out 07/24/2024 07/24/2024 025 2:29 PM DOPE HEATER COVID - 19 07/24/2024 07/24/2024 07/24/2024 2:29 PM DOPE HEATER Assessment Noted Time PHQ-9 Depression Total Score: 2 06/07/19 2:34 PM DOPE HEATER documented as of this encounter Care Teams Director New Product Relationship Specialty Start Date End Date Keith Craft MD PCP - General Family Medicine 01/14/19 12/26/23 Liz Capellan DO [address] [id number] PCP - General Family Medicine 12/27/23 Quang Locke DO Gastroenterology 01/18/16 Bri Rollins RN [place] Consumer Loan Officer 03/07/21 05/22/23 [place] [address] [address] 05/25/21 Bri Rollins RN [place] Nurse Consumer Loan Officer 03/07/21 05/23/23 Werner Swift MD #2 [place] [address] Consulting Physician Pulmonary Disease 01/30/22 Yasmin Restrepo MD #[address] [address] Consulting Physician Endocrinology 07/20/24 documented as of this encounter
--- OUTSIDE RECORDS SUMMARY | 2024-08-16 19:32 | XMS_ITS | Encounter Summary ---
Author Organization [facility] Address [address] [place] [address] Phone Care Team Providers Care Beauty Culturist Name Role Phone Quang Locke Oswaldo PRESLEY Unavailable [phone] Silvio Schulte MD Unavailable [phone] Werner Swift MD Unavailable Liz Capellan DO Primary Care Provider Yasmin Restrepo MD Unavailable Reason for Visit * Reason Comments Medication Refill Encounter Details Date Type Department Care Team (Late st Contact Info) Description 02/19/2024 Refill [facility] - Family Medicine [facility] #2 [place] [phone] Keith Craft MD #1 [place] [address] Medication Refill Social History Tobacco Use Types Packs/Day Years Used Date Smoking Tobacco: Former Cigarettes 2 50 1 - 03/16/2018 Smokeless Tobacco: Never Comments:Still uses nictoine patches and gum Alcohol Use Standard Drinks/Week Comments No 0 (1 standard drink = 0.6 oz pur e alcohol) [facility] Utilities Answer Date Recorded In [...] often do you attend chur ch or evangelical services? Never 12/27/2023 Do you belong to [...] Total Score - Questions 1-9 4 10/25 [facility] - Occupational Stress [...] health care facility (including now)? No 07/13/2023 Housing Stability Vital Sign Answer Richar e Recorded In the last 12 months, was t here a time when you were not able to pay the mortgage or rent on time? No 12/27/2023 In the past 12 months, how m any times have you moved where you were living? 0 12/27/2023 At any time in the past 12 m [facility], were you homeless or living in a [place] health care facility (including now)? No 12/27/2023 Education Answer Date [...] Description 08/27/2024 1:15 PM CDT [facility] - [place] #2 [place] [address] Yasmin Restrepo MD #[address] [address] 09/02/2024 2:00 PM CD[facility] 1 [place] [address] Werner Swift MD #2 [place] [address] Discharge Disposition: Discharged to home or Selfcare 10/08/2024 1:40 PM CDT Office Visit [facility] - Family Medicine - [place] #2 [place] [address] Liz Capellan DO [address] [address] 11/16/2024 1:00 PM CDT Office Visit [facility] - Pulmonology & Sleep Medicine - [place] #2 [facility] [place] [address] Werner Swift MD #2 [place] [address] documented as of this encounter Goals Goal [...] Zones/Action plan education. I will notify my Housemaid if my symptoms fall in the y ellow zone . I will consider receiving an influenza and pneumonia vaccination, if applicable. -I will call the office if I experience any symptoms listed above to discuss at home management options. documented as of this encounter Visit Diagnoses Diagnosis Type 2 diabetes mellitus with diabetic neuropathy, with long-term current use of insulin ([facility]) documented in this encounter Additional Health Concerns Infection Onset Date Last Indicated Resolved Time Stenotrophomonas maltophilia Comment:Must have a follow up respiratory sample to remove isolation flag. 10/20/2021 10/20/2021 Respiratory Rule Out - RPA 03/17/2024 03/17/2024 1 3:36 PM CDT COVID - 19 04/27/2024 04/27/2024 04/27/2024 2:19 PM BUTTON TUFTER Respiratory Rule-Out 07/24/2024 07/24/2024 025 2:29 PM BUTTON TUFTER COVID - 19 07/24/2024 07/24/2024 07/24/2024 2:29 PM BUTTON TUFTER Assessment Noted Time PHQ-9 Depression Total Score: 4 11/08/19 24 9:33 AM CDT documented as of this encounter Care Teams Beauty Culturist Relationship Specialty Start Date End Date Liz Capellan DO 2 [facility] [address] [place] [address] PCP - General Family Medicine 12/27/23 Quang Locke DO Gastroenterology 01/18/16 [place] [address] [address] 05/25/21 Werner Swift MD #2 [place] [address] Consulting Physician Pulmonary Disease 01/30/22 Yasmin Restrepo MD [address] [address] Consulting Physician Endocrinology 07/20/24 documented as of this encounter
--- OUTSIDE RECORDS SUMMARY | 2024-08-16 19:32 | XMS_ITS | Encounter Summary ---
Author Organization [facility] Address [address] [place] [address] Phone Care Team Providers Care Fact Checker Name Role Phone Quang Locke DO Unavailable [phone] Keith Craft MD Primary Care Provider [phone] Bri Rollins RN Unavailable Unavailable Silvio Schulte MD Unavailable [phone] Bri Rollins RN Unavailable Unavailable Werner Swift MD Unavailable Liz Capellan DO Primary Care Provider [phone] Yasmin Restrepo MD Unavailable Reason for Visit * Reason Comments Medication Refill Encounter Details Date Type Department Care Team (Late st Contact Info) Description 06/29/2021 Refill [facility] #2 [place] [address] Keith Craft MD #1 [place] [address] Medication Refill Social History Tobacco Use Types [...] Lillian Steiner RN - 06/29/2021 10:58 AM DERMATOLOGY NURSE PRACTITIONER Medication failed the protocol, provider to review and approve the medication order if appropriate. Requested Prescriptions Pending Prescriptions Disp Refills Ventolin HFA 108 (90 Base) MCG/ACT Aerosol Solution [Pharmacy Med Name: VENTOLIN HFA 90 MCG [id number] (90 BAS Aerosol] 18 g 1 Sig: USE 2 PUFF(S) BY INHALATION ROUTE EVERY 4 HOURS NEEDED WHEEZING Short Acting Inhaled Beta-Agonists Protocol Passed - 06/29/2021 10:56 AM Passed - Visit with relevant provider in past 12 months or upcoming 90 days Recent Visits Date Type Provider Dept 05/25/21 Office Visit Marcin Anderson APRN, CO SUPERVISOR GROUNDS AND LANDSCAPE [facility] [place] 05/05/21 Office Visit Brie Denis, PAC [facility] [place] 04/14/21 Office Visit Keith Craft MD [facility] 03/23/21 Office Visit Keith Craft MD [facility] [place] 02/07/21 Office Visit Keith Craft MD [facility] 02/03/21 Office Visit Brie Denis, PAC [facility] [place] 01/12/21 Office Visit Keith Craft MD [facility] 10/12/20 Office Visit Keith Craft MD [facility] 10/04/20 Office Visit Keith Craft MD [facility] Showing recent visits within past 365 [...] Dept 05/25/21 [facility] 05/05/21 Office Visit Brie Denis, [facility] [place] 04/14/21 Office Visit Keith Craft MD [facility] 03/23/21 Office Visit Keith Craft MD [facility] [place] 02/07/21 Office Visit Keith Craft MD [facility] [place] 02/03/21 Office Visit Brie Denis, [facility] [place] 01/12/21 Office Visit Keith Craft MD [facility] 10/12/20 Office Visit Keith Craft MD [facility] 10/04/20 Office Visit Keith Craft MD [facility] [...] Dept 05/25/21 Office Visit Marcin Anderson APRN, CO SUPERVISOR GROUNDS AND LANDSCAPE [facility] [place] 05/05/21 Office Visit Brie Denis, PAC [facility] [place] 04/14/21 Office Visit Keith Craft, [facility] [place] 03/23/21 Office Visit Keith Craft, [facility] [place] 02/07/21 Office Visit Keith Craft, [facility] [place] 02/03/21 Office Visit Brie Denis, PAC [facility] [place] 01/12/21 Office Visit Keith Craft, [facility] [place] 10/12/20 Office Visit Keith Craft, [facility] [place] 10/04/20 [facility] visits within past 365 days and meeting all other requirements Future Appointments Date Type Provider Dept 08/14/21 Appointment [facility] Show[facility] future appointments within next 90 days and meeting all other requirements ATOLOGY NURSE PRACTITIONER documented in this encounter Plan of Treatment Upcoming Encounters Date Type Department Care Team (Late st Contact Info) Description 08/27/2024 1:15 PM CDT Office Visit [facility] - Endocrinology - [place] #2 [place] [address] Yasmin Restrepo MD #[address] [phone] 09/02/2024 2:00 PM CDT [facility] [address] [place] [phone] Werner Swift MD #2 [place] [address] Discharge Disposition: Discharged to home or Selfcare 10/08/2024 1:40 PM CDT Office Visit [facility] - Family Medicine - [place] [address] [place] [address] Liz [facility]ellan, DO [facility] [address] [address] 11/16/2024 1:00 PM CDT Office Visit [facility] - Pulmonology & Sleep Medicine [facility] #2 [place] [address] Werner Swift MD #2 [place] [address] documented as of this encounter Goals Goal [...] Zones/Action plan education. I will notify my Reel Repairer if my symptoms fall in the y [...] - 19 07/23/2021 07/23/2021 07/24/2021 6:31 AM DERMATOLOGY NURSE PRACTITIONER COVID - 19 10/19/2021 10/19/2021 10/20/2021 7:45 AM CDT Respiratory Rule Out - RPA 10/19/2021 10/19/2021 0 10/20/2021 2:10 PM CDT Stenotrophomonas maltophilia Comment:Must have a follow up respiratory sample to remove isolation flag. 10/20/2021 10/20/2021 COVID - 19 04/20/2022 04/20/2022 04/30/2022 12:1 8 AM DERMATOLOGY NURSE PRACTITIONER COVID - 19 07/18/2022 07/18/2022 07/28/2022 12:1 6 AM DERMATOLOGY NURSE PRACTITIONER COVID - 19 08/21/2022 08/21/2022 08/22/2022 8:31 AM CDT Respiratory Rule Out - RPA 08/21/2022 08/21/2022 0 08/22/2022 3:21 PM CDT COVID - 19 04/18/2023 04/18/2023 04/28/2023 12:1 6 AM DERMATOLOGY NURSE PRACTITIONER COVID - 19 07/13/2023 07/13/2023 07/23/2023 12:1 6 AM DERMATOLOGY NURSE PRACTITIONER Respiratory Rule Out - RPA 03/17/2024 03/17/2024 1 3:36 PM CDT COVID - 19 04/27/2024 04/27/2024 04/27/2024 2:19 PM DERMATOLOGY NURSE PRACTITIONER Respiratory Rule-Out 07/24/2024 07/24/2024 025 2:29 PM DERMATOLOGY NURSE PRACTITIONER COVID - 19 07/24/2024 07/24/2024 07/24/2024 2:29 PM DERMATOLOGY NURSE PRACTITIONER Assessment Noted Time PHQ-9 Depression Total Score: 1 03/07/20 21 10:29 AM CDT documented as of this encounter Care Teams Fact Checker Relationship Specialty Start Date End Date Keith Craft MD PCP - General Family Medicine 01/14/19 12/26/23 Liz Capellan DO 2 [facility] [address] [address] PCP - General Family Medicine 12/27/23 Quang Locke DO Gastroenterology 01/18/16 Bri Rollins, RN [place] Reel Repairer 03/07/21 05/22/23 [place] [address] [address] 05/25/21 Bri Rollins, RN [place] Nurse Reel Repairer 03/07/21 05/23/23 Werner Swift MD #[address] [place] [address] Consulting Physician Pulmonary Disease 01/30/22 Yasmin Restrepo MD [facility] [phone] Consulting Physician Endocrinology 07/20/24 documented as of this encounter
--- OUTSIDE RECORDS SUMMARY | 2024-08-16 19:32 | XMS_ITS | Encounter Summary ---
Author Organization [facility] Address [address] [place] [address] Phone Care Team Providers Care Cash Applications Specialist Name Role Phone Quang Locke DO Unavailable [phone] Keith Craft MD Primary Care Provider [phone] Bri Rollins RN Unavailable Unavailable Silvio Schulte MD Unavailable [phone] Bri Rollins RN Unavailable Unavailable Werner Swift MD Unavailable Liz Capellan DO Primary Care Provider [phone] Yasmin Restrepo MD Unavailable Reason for Visit * Reason Comments Medication Refill Encounter Details Date Type Department Care Team (Late st Contact Info) Description 02/18/2023 Refill [facility] Family Medicine [facility] #2 [place] [address] Keith Craft MD #1 [place] [address] Medication Refill Social History Tobacco Use Types [...] Dept 12/10/22 Office Visit Keith Craft MD [facility] [place] 09/10/22 [facility] Office Visit Kerri Kauffman, PRODUCT MGMT DEV MANAGER, STOCKHOLDER [facility] [place] 06/07/22 Office Visit Keith Craft MD [facility] [place] 03/02/22 Procedure Visit [facility] Office Visit [facility] [place] 07/18/22 Office Visit Kerri Kauffman APRN, STOCKHOLDER [facility] [place] 06/07/22 Office Visit Keith Craft MD [facility] 03/02/22 Procedure Visit ZAINA DIABETIC RETINAL IMAGING [facility] [place] 03/02/22 Office Visit [...] [place] 07/18/22 Office Visit Kerri Kauffman APRN, STOCKHOLDER [facility] [place] 06/07/22 Office Visit Keith Craft MD [facility] 03/02/22 Procedure Visit [facility] DI[facility] RETINAL IMAG[facility] 03/02/22 Office Visit Keith Craft MD [facility] [place] Showing recent visits [...] Visit [facility] - Endocrinology - [place] #[address] [place] [address] Yasmin Restrepo MD [address] [phone] 09/02/2024 2:00 PM CDT Appointment [facility] Respiratory Therapy 1 [place] [address] Werner Swift MD #2 [place] [address] Discharge Disposition: Discharged to home or Selfcare 10/08/2024 1:40 PM CDT Office Visit [facility] Family Medicine [facility] #2 [place] [address] Liz Capellan, DO [address] [address] 11/16/2024 1:00 PM CDT Office Visit [facility] - Pulmonology & Sleep Medicine [facility] #2 [place] [address] Werner Swift MD #2 [place] [address] documented as of this encounter Goals Goal [...] Zones/Action plan education. I will notify my Direct Support Worker if my symptoms fall in the [...] 19 04/18/2023 04/18/2023 04/28/2023 12:1 6 AM CABLE SYSTEMS INSTALLER COVID - 19 07/13/2023 07/13/2023 07/23/2023 12:1 6 AM CABLE SYSTEMS INSTALLER Respiratory Rule Out - RPA 03/17/2024 03/17/2024 1 3:36 PM CDT COVID - 19 04/27/2024 04/27/2024 04/27/2024 2:19 PM CABLE SYSTEMS INSTALLER Respiratory Rule-Out 07/24/2024 07/24/2024 025 2:29 PM CABLE SYSTEMS INSTALLER COVID - 19 07/24/2024 07/24/2024 07/24/2024 2:29 PM CABLE SYSTEMS INSTALLER Assessment Noted Time PHQ-9 Depression Total Score: 1 03/07/20 21 10:29 AM CDT documented as of this encounter Care Teams Cash Applications Specialist Relationship Specialty Start Date End Date Keith Craft MD PCP - General Family Medicine 01/14/19 12/26/23 Liz Capellan DO [address] [address] PCP - General Family Medicine 12/27/23 Quang Locke DO Gastroenterology 01/18/16 Bri Rollins, KATE[place] Direct Support Worker 03/07/21 05/22/23 [place] [address] [address] 05/25/21 Bri Rollins RN [place] Nurse Direct Support Worker 03/07/21 05/23/23 Werner Swift MD #2 [place] [address] Consulting Physician Pulmonary Disease 01/30/22 Yasmin Restrepo MD #[address] [phone] Consulting Physician Endocrinology 07/20/24 documented as of this encounter
--- OUTSIDE RECORDS SUMMARY | 2024-08-16 19:32 | XMS_ITS ---
Author Organization [facility] Address #[address] [place] [address] Phone Care Team Providers Care Cuff Stitcher Name Role Phone Quang Locke DO Unavailable [phone] Silvio Schulte MD Unavailable [phone] Werner Swift MD Unavailable Liz Capellan DO Primary Care Provider [phone] Yasmin Restrepo MD Unavailable OnCall Chronic Condition Monitoring Status:Enrolled (Active) Start date:08/06/2024 Enrollment date:08/06/2024 Related social drivers of health:Social Connections, Alcohol Use, Tobacco Use, Physical Activity, Food Insecurity Continued Care and Services Coordination
--- OUTSIDE RECORDS SUMMARY | 2024-08-16 19:32 | XMS_ITS | Encounter Summary ---
Author Organization [facility] Address [address] [place] [address] Phone Care Team Providers Care Diesel Mechanic Name Role Phone Quang Locke DO Unavailable [phone] Keith Craft MD Primary Care Provider [phone] Bri Rollins RN Unavailable Unavailable Silvio Schulte MD Unavailable [phone] Bri Rollins RN Unavailable Unavailable Werner Swift MD Unavailable Liz Capellan DO Primary Care Provider [phone] Yasmin Restrepo MD Unavailable Reason for Visit * Reason Comments Medication Refill Encounter Details Date Type Department Care Team (Late st Contact Info) Description 10/31/2021 Refill [facility] Medicine [facility] #2 [place] [address] Keith Craft MD #1 [place] [address] Medication Refill Social History Tobacco Use Types [...] [place] 09/08/21 Office Visit Brie Denis PAC [facility] [place] 08/14/21 Office Visit Keith Craft MD [facility] 07/31/21 Office Visit Keith Craft MD [facility] [place] 05/25/21 Office Visit Marcin Anderson, VAMP LINER, GRAPHICS COORDINATOR [facility] [place] 05/05/21 Office [facility] 04/14/21 [facility] 03/23[facility]21 Office Visit Keith Craft MD [facility] [place] 02/07/21 Office Visit [facility] Show[facility] recent visits within past 365 days and meeting all other requirements Future Appointments Date Type Provider Dept 11/03/21 Appointment Keith Craft MD [facility] 12/19/21 Appointment Keith Craft MD [facility] [place] Showing future appointments within next 90 days and meeting all other requirements documented in this encounter Plan of Treatment Upcoming Encounters Date Type Department Care Team (Late st Contact Info) Description 08/27/2024 1:15 PM CDT Office Visit [facility] - Endocrinology - [place] #2 [place] [address] Yasmin Restrepo MD #[address] [address] 09/02/2024 2:00 PM CDT Appointment [facility] Respiratory Therapy 1 [place] [address] Werner Swift MD #2 [place] [address] Discharge Disposition: Discharged to home or Selfcare 10/08/2024 1:40 PM CDT Office Visit [facility] - Family Medicine - [place] #2 [place] [address] Liz Capellan, DO [address] [address] 11/16/2024 1:00 PM CDT Office Visit [facility] - Pulmonology & Sleep Medicine [facility] [place] [facility] [address] [place] [address] Werner Swift MD [address] [place] [address] documented as of this encounter Goals Goal [...] Zones/Action plan education. I will notify my Cook Fruit if my symptoms fall in the y [...] 19 04/20/2022 04/20/2022 04/30/2022 12:1 8 AM SPANISH LANGUAGE LECTURER COVID - 19 07/18/2022 07/18/2022 07/28/2022 12:1 6 AM SPANISH LANGUAGE LECTURER COVID - 19 08/21/2022 08/21/2022 08/22/2022 8:31 AM CDT Respiratory Rule Out - RPA 08/21/2022 08/21/2022 0 08/22/2022 3:21 PM CDT COVID - 19 04/18/2023 04/18/2023 04/28/2023 12:1 6 AM SPANISH LANGUAGE LECTURER COVID - 19 07/13/2023 07/13/2023 07/23/2023 12:1 6 AM SPANISH LANGUAGE LECTURER Respiratory Rule Out - RPA 03/17/2024 03/17/2024 1 3:36 PM CDT COVID - 19 04/27/2024 04/27/2024 04/27/2024 2:19 PM SPANISH LANGUAGE LECTURER Respiratory Rule-Out 07/24/2024 07/24/2024 025 2:29 PM SPANISH LANGUAGE LECTURER COVID - 19 07/24/2024 07/24/2024 07/24/2024 2:29 PM SPANISH LANGUAGE LECTURER Assessment Noted Time PHQ-9 Depression Total Score: 1 03/07/20 21 10:29 AM CDT documented as of this encounter Care Teams Diesel Mechanic Relationship Specialty Start Date End Date Keith Craft MD PCP - General Family Medicine 01/14/19 12/26/23 Liz Capellan DO [address] [address] PCP - General Family Medicine 12/27/23 Quang Locke DO Gastroenterology 01/18/16 Bri Rollins RN [place] Cook Fruit 03/07/21 05/22/23 [place] [address] [address] 05/25/21 Bri Rollins, RN [place] Nurse Cook Fruit 03/07/21 05/23/23 Werner Swift MD [address] [place] [address] Consulting Physician Pulmonary Disease 01/30/22 Yasmin Restrepo MD [address] [address] Consulting Physician Endocrinology 07/20/24 documented as of this encounter
--- OUTSIDE RECORDS SUMMARY | 2024-08-16 19:32 | XMS_ITS | Encounter Summary ---
Author Organization [facility] Address [address] [place] [address] Phone Care Team Providers Care Transmission Operator Name Role Phone Quang Locke DO Unavailable [phone] Keith Craft MD Primary Care Provider [phone] Bri Rollins RN Unavailable Unavailable Silvio Schulte MD Unavailable [phone] Bri Rollins RN Unavailable Unavailable Werner Swift MD Unavailable Liz Capellan DO Primary Care Provider [phone] Yasmin Restrepo MD Unavailable Reason for Visit * Reason Comments Medication Refill Encounter Details Date Type Department Care Team (Late st Contact Info) Description 06/01/2020 Refill [facility] #2 [place] [address] Keith Craft MD #1 [place] [address] Medication Refill Social History Tobacco Use Types [...] COVID-19? No / Unsure 05/24/2020 1:11 PM FIELD SUPERVISOR documented as of this encounter Miscellaneous Notes * Telephone Encounter - Yonathan Bonilla MD - 06/01/2020 3:58 PM CST Prescription pending signature D SUPERVISOR * Telephone Encounter - Gloria Cornejo RN [...] right upper lobe due to infectious organism [facility] - Keith Jenkins MD 4 months ago Acute non-recurrent maxillary sinusitis [facility] - Keith Jenkins MD 7 months ago Chronic prescription opiate use [facility] Keith Lemus MD 10 months ago Coronary artery disease involving [place] coronary artery of [place] heart without angina pectoris [facility] 11 months ago COPD exacerbation (HCC) [facility] Brie Denis, NICOLE Upcoming Appointments Future Appointments In 6 days Keith Craft MD [facility] [place], [facility] INDUSTRIAL DESIGNER - Recent and Past Visits Recent Visits Date Type Provider Dept 04/25/20 Office Visit Keith Craft MD [facility] 02/02/20 Office Visit Keith Craft MD [facility] 11/02/19 Office Visit Keith Craft MD [facility] 07/27/19 Office Visit Keith Craft MD [facility] 06/10/19 Office Visit Brie Denis, [facility] 04/20/19 [facility] Showing recent visits within past 460 days with a meds authorizing provider and meeting all other requirements Future Appointments Date Type Provider Dept 06/07/20 Appointment Keith Craft MD [facility] Showing future appointments within next 90 days with a meds authorizing provider and meeting all other requirements D SUPERVISOR documented in this encounter Plan of Treatment Upcoming Encounters Date Type Department Care Team (Late st Contact Info) Description 08/27/2024 1:15 PM CDT Office Visit [facility] Endocrinology - [place] #2 [place] [address] Yasmin Restrepo MD #[address] [phone] 09/02/2024 2:00 PM CDT Appointment [facility] Respiratory Therapy 1 [place] [address] Werner Swift MD #2 [place] [address] Discharge Disposition: Discharged to home or Selfcare 10/08/2024 1:40 PM CDT Office Visit [facility] - Family Medicine - [place] #2 [place] [address] Liz Capellan, DO 2 [facility]. [address] [place] [address] 11/16/2024 1:00 PM CDT Office Visit [facility] - Pulmonology & Sleep Medicine - [place] #2 [place] [address] Werner Swift MD #2 [place] [address] documented as of this encounter Visit Diagnoses Diagnosis Anxiety and depression Dysthymic disorder documented in this encounter Additional Health Concerns Infection Onset Date Last Indicated Resolved Time COVID - 19 01/25/2021 01/25/2021 01/31/2021 8:10 AM CDT Respiratory Rule Out - RPA 01/30/2021 01/30/2021 0 02/01/2021 12:45 AM CDT COVID - 19 07/23/2021 07/23/2021 07/24/2021 6:31 AM FIELD SUPERVISOR COVID - 19 10/19/2021 10/19/2021 10/20/2021 7:45 AM CDT Respiratory Rule Out - RPA 10/19/2021 10/19/2021 0 10/20/2021 2:10 PM CDT Stenotrophomonas maltophilia Comment:Must have a follow up respiratory sample to remove isolation flag. 10/20/2021 10/20/2021 COVID - 19 04/20/2022 04/20/2022 04/30/2022 12:1 8 AM FIELD SUPERVISOR COVID - 19 07/18/2022 07/18/2022 07/28/2022 12:1 6 AM FIELD SUPERVISOR COVID - 19 08/21/2022 08/21/2022 08/22/2022 8:31 AM CDT Respiratory Rule Out - RPA 08/21/2022 08/21/2022 0 08/22/2022 3:21 PM CDT COVID - 19 04/18/2023 04/18/2023 04/28/2023 12:1 6 AM FIELD SUPERVISOR COVID - 19 07/13/2023 07/13/2023 07/23/2023 12:1 6 AM FIELD SUPERVISOR Respiratory Rule Out - RPA 03/17/2024 03/17/2024 1 3:36 PM CDT COVID - 19 04/27/2024 04/27/2024 04/27/2024 2:19 PM FIELD SUPERVISOR Respiratory Rule-Out 07/24/2024 07/24/2024 025 2:29 PM FIELD SUPERVISOR COVID - 19 07/24/2024 07/24/2024 07/24/2024 2:29 PM FIELD SUPERVISOR Assessment Noted Time PHQ-9 Depression Total Score: 1 06/10/19 20 1:03 PM FIELD SUPERVISOR documented as of this encounter Care Teams Transmission Operator Relationship Specialty Start Date End Date Keith Craft MD PCP - General Family Medicine 01/14/19 12/26/23 Liz Capellan DO [address] [address] PCP - General Family Medicine 12/27/23 Quang Locke DO Gastroenterology 01/18/16 Bri Rollins RN [place] Crocodile Farmer 03/07/21 05/22/23 [place] [address] [address] 05/25/21 Bri Rollins RN [place] Nurse Crocodile Farmer 03/07/21 05/23/23 Werner Swift MD #2 [place] [address] Consulting Physician Pulmonary Disease 01/30/22 Yasmni Restrepo MD [address] [phone] Consulting Physician Endocrinology 07/20/24 documented as of this encounter
--- OUTSIDE RECORDS SUMMARY | 2024-08-16 19:32 | XMS_ITS | Encounter Summary ---
Author Organization [facility] Address [address] [place] [address] Phone Care Team Providers Care Senior Games Technician Name Role Phone Quang Locke DO Unavailable [phone] Keith Craft MD Primary Care Provider [phone] Bri Rollins RN Unavailable Unavailable Silvio Schulte MD Unavailable [phone] Bri Rollins RN Unavailable Unavailable Werner Swift MD Unavailable Liz Capellan DO Primary Care Provider [phone] Yasmin Restrepo MD Unavailable Reason for Visit * Reason Comments Medication Refill Encounter Details Date Type Department Care Team (Late st Contact Info) Description 07/14/2020 Refill [facility] #2 [place] [address] Keith Craft MD #1 [place] [address] Medication Refill Social History Tobacco Use Types [...] COVID-19? 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 angina pectoris [facility] Keith Lemus MD Upcoming Appointments Future Appointments In [address] VACCINE CLINIC [facility] - [facility] In 2 months Keith Craft MD [facility] - [place] [facility] INDUSTRIAL ROOFER - Recent and Past Visits Recent Visits Date Type Provider Dept 06/07/20 Office Visit Keith Craft MD [facility] 04/25/20 Office Visit Keith Craft, MD [facility] 02/02/20 Office Visit Keith Craft MD [facility] 11/02/19 Office Visit Keith Craft MD [facility] 07/27/19 Office Visit Keith Craft MD [facility] 06/10/19 Office Visit Marsha Denisa Marie, 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 [facility] Keith Lemus MD Upcoming Appointments Future Appointments In 2 weeks [facility] [place] In 2 months Keith Craft MD [facility] - [facility] INDUSTRIAL ROOFER - Recent and Past Visits Recent Visits Date Type Provider Dept 06/07/20 Office Visit Keith Craft MD [facility] 04/25/20 Office Visit Keith Craft, [facility] 02/02/20 Office Visit Keith Carft MD [facility] 11/02/19 Office Visit Keith Craft, [facility] 07/27/19 Office Visit Keith Craft MD [facility] 06/10/19 Office Visit Brie Denis, NICO[facility] 04/20/19 Office Visit Keith Craft, [facility] Showing recent visits within past 460 days with a meds authorizing provider and meeting all other requirements Future Appointments Date Type Provider Dept 10/04/20 Appointment Keith Craft MD [facility] Showing future appointments within next 90 days with a meds authorizing provider and meeting all other requirements Passed - Last BP in normal range BP Readings from Last 1 Encounters: 06/07/20 102/58 Passed - Theophylline (serum) in normal range and within 360 days THEOPHYLLINE Date Value Ref Range Status 07/27/2019 14 10 - 20 mcg/mL Final AND RESEARCH REACTOR OPERATOR * Telephone Encounter - Camila Mehta RN - 07/14/2020 12:40 PM CST Medication approved and signed per standing order protocol. AND RESEARCH REACTOR OPERATOR documented in this encounter Plan of Treatment Upcoming Encounters Date Type Department Care Team (Late st Contact Info) Description 08/27/2024 1:15 PM CDT Office Visit [facility] Medical [facility] - Endocrinology - [place] [address]2 [place] [address] Yasmin Restrepo MD #[address] [address] 09/02/2024 2:00 PM CDT [facility] 1 [facility] [place] [address] Werner Swift MD #2 [place] [address] Discharge Disposition: Discharged to home or Selfcare 10/08/2024 1:40 PM CDT Office Visit [facility] - Family Medicine [facility] #2 [place] [address] Liz Capellan, DO [address] [address] 11/16/2024 1:00 PM CDT Office Visit [facility] - Pulmonology & Sleep Medicine [facility] #2 [place] [address] Werner Swift MD #2 [place] [address] documented as of this encounter Visit Diagnoses [...] - 19 07/23/2021 07/23/2021 07/24/2021 6:31 AM TEST AND RESEARCH REACTOR OPERATOR COVID - 19 10/19/2021 10/19/2021 10/20/2021 7:45 AM CDT Respiratory Rule Out - RPA 10/19/2021 10/19/2021 0 10/20/2021 2:10 PM CDT Stenotrophomonas maltophilia Comment:Must have a follow up respiratory sample to remove isolation flag. 10/20/2021 10/20/2021 COVID - 19 04/20/2022 04/20/2022 04/30/2022 12:1 8 AM TEST AND RESEARCH REACTOR OPERATOR COVID - 19 07/18/2022 07/18/2022 07/28/2022 12:1 6 AM TEST AND RESEARCH REACTOR OPERATOR COVID - 19 08/21/2022 08/21/2022 08/22/2022 8:31 AM CDT Respiratory Rule Out - RPA 08/21/2022 08/21/2022 0 08/22/2022 3:21 PM CDT COVID - 19 04/18/2023 04/18/2023 04/28/2023 12:1 6 AM TEST AND RESEARCH REACTOR OPERATOR COVID - 19 07/13/2023 07/13/2023 07/23/2023 12:1 6 AM TEST AND RESEARCH REACTOR OPERATOR Respiratory Rule Out - RPA 03/17/2024 03/17/2024 1 3:36 PM CDT COVID - 19 04/27/2024 04/27/2024 04/27/2024 2:19 PM TEST AND RESEARCH REACTOR OPERATOR Respiratory Rule-Out 07/24/2024 07/24/2024 025 2:29 PM TEST AND RESEARCH REACTOR OPERATOR COVID - 19 07/24/2024 07/24/2024 07/24/2024 2:29 PM TEST AND RESEARCH REACTOR OPERATOR Assessment Noted Time PHQ-9 Depression Total Score: 2 06/07/19 21 2:34 PM TEST AND RESEARCH REACTOR OPERATOR documented as of this encounter Care Teams Senior Games Technician Relationship Specialty Start Date End Date Keith Craft MD PCP - General Family Medicine 01/14/19 12/26/23 Liz Capellan DO 2 [facility] [place] [address] [address] PCP - General Family Medicine 12/27/23 Quang Locke DO Gastroenterology 01/18/16 Bri Rollins, RN [place] Door To Door Selling Distributor 03/07/21 05/22/23 [place] [id number] [address] 05/25/21 Bri Rollins RN [place] Nurse Door To Door Selling Distributor 03/07/21 05/23/23 Werner Swift MD #2 [place] [address] Consulting Physician Pulmonary Disease 01/30/22 Yasmin Restrepo MD #[address] [phone] Consulting Physician Endocrinology 07/20/24 documented as of this encounter
--- OUTSIDE RECORDS SUMMARY | 2024-08-16 19:32 | XMS_ITS | Encounter Summary ---
Author Organization [facility] Address [address] [place] [address] Phone Care Team Providers Care Aircraft Pneudraulic Systems Mechanic Name Role Phone Quang Locke DO Unavailable [phone] Keith Craft MD Primary Care Provider [phone] Bri Rollins RN Unavailable Unavailable Silvio Schulte MD Unavailable [phone] Bri Rollins RN Unavailable Unavailable Werner Swift MD Unavailable Liz Capellan DO Primary Care Provider [phone] Yasmin Restrepo MD Unavailable Reason for Visit * Reason Comments Medication Refill Encounter Details Date Type Department Care Team (Late st Contact Info) Description 12/04/2019 Refill [facility] #2 [place] [address] Keith Craft MD #1 [place] [address] Medication Refill Social History Tobacco Use Types [...] 4 months ago Coronary artery disease involving [place] coronary artery of [place] heart without angina pectoris [facility] Keith Craft MD 6 months ago COPD exacerbation (HCC) [facility] Brie Denis PAC 7 months ago Type 2 diabetes mellitus with diabetic neuropathy, with long-term current use of insulin (HCC) [facility] Keith Elizalde MD 10 months ago Type 2 diabetes mellitus with diabetic neuropathy, with long-term current use of insulin (HCC) [facility] Keith Craft MD Upcoming Appointments Future Appointments In 1 month Keith Craft MD [facility], [facility] documented in this encounter Plan of Treatment Upcoming Encounters Date Type Department Care Team (Late st Contact Info) Description 08/27/2024 1:15 PM CDT Office Visit [facility] Medical [facility] - Endocrinology - [place] [address] [place] [address] Yasmin Restrepo MD #2 [facility] [address] [place] [address] 09/02/2024 2:00 PM CDT [facility]ointment [facility] 1 [place] [address] Werner Swift MD #2 [place] [address] Discharge Disposition: Discharged to home or Selfcare 10/08/2024 1:40 PM CDT Office Visit [facility] Family Medicine - [place] [address]2 [place] [address] Liz Capellan, DO [address] [address] 11/16/2024 1:00 PM CDT Office Visit [facility] - Pulmonology & Sleep Medicine - [place] [address] [place] [address] Werner Swift MD #2 [place] [address] documented as of this encounter Visit Diagnoses Diagnosis Anxiety and depression Dysthymic disorder documented in this encounter Additional Health Concerns Infection Onset Date Last Indicated Resolved Time COVID - 19 01/25/2021 01/25/2021 01/31/2021 8:10 AM CDT Respiratory Rule Out - RPA 01/30/2021 01/30/2021 0 02/01/2021 12:45 AM CDT COVID - 19 07/23/2021 07/23/2021 07/24/2021 6:31 AM STERILE PROCESS COORDINATOR COVID - 19 10/19/2021 10/19/2021 10/20/2021 7:45 AM CDT Respiratory Rule Out - RPA 10/19/2021 10/19/2021 0 10/20/2021 2:10 PM CDT Stenotrophomonas maltophilia Comment:Must have a follow up respiratory sample to remove isolation flag. 10/20/2021 10/20/2021 COVID - 19 04/20/2022 04/20/2022 04/30/2022 12:1 8 AM STERILE PROCESS COORDINATOR COVID - 19 07/18/2022 07/18/2022 07/28/2022 12:1 6 AM STERILE PROCESS COORDINATOR COVID - 19 08/21/2022 08/21/2022 08/22/2022 8:31 AM CDT Respiratory Rule Out - RPA 08/21/2022 08/21/2022 0 08/22/2022 3:21 PM CDT COVID - 19 04/18/2023 04/18/2023 04/28/2023 12:1 6 AM STERILE PROCESS COORDINATOR COVID - 19 07/13/2023 07/13/2023 07/23/2023 12:1 6 AM STERILE PROCESS COORDINATOR Respiratory Rule Out - RPA 03/17/2024 03/17/2024 1 3:36 PM CDT COVID - 19 04/27/2024 04/27/2024 04/27/2024 2:19 PM STERILE PROCESS COORDINATOR Respiratory Rule-Out 07/24/2024 07/24/2024 025 2:29 PM STERILE PROCESS COORDINATOR COVID - 19 07/24/2024 07/24/2024 07/24/2024 2:29 PM STERILE PROCESS COORDINATOR Assessment Noted Time PHQ-9 Depression Total Score: 1 06/10/19 20 1:03 PM STERILE PROCESS COORDINATOR documented as of this encounter Care Teams Aircraft Pneudraulic Systems Mechanic Relationship Specialty Start Date End Date Keith Craft MD PCP - General Family Medicine 01/14/19 12/26/23 Liz Capellan DO 2 [facility] [address] [place], [place] [id number] PCP - General Family Medicine 12/27/23 Quang Locke DO Gastroenterology 01/18/16 Bri Rollins, KATEY [place] Wheel Loader Operator 03/07/21 05/22/23 [place] [id number] [address] 05/25/21 Bri Rollins, KATE[place] Nurse Wheel Loader Operator 03/07/21 05/23/23 Werner Swift MD #2 [place] [address] Consulting Physician Pulmonary Disease 01/30/22 Yasmin Restrepo MD #[address] [phone] Consulting Physician Endocrinology 07/20/24 documented as of this encounter
--- OUTSIDE RECORDS SUMMARY | 2024-08-16 19:32 | XMS_ITS | Encounter Summary ---
Author Organization [facility] Address [address] [place] [address] Phone Care Team Providers Care Banker Mason Name Role Phone Quang Locke DO Unavailable [phone] Keith Craft MD Primary Care Provider [phone] Bri Rollins RN Unavailable Unavailable Silvio Schulte MD Unavailable [phone] Bri Rollins RN Unavailable Unavailable Werner Swift MD Unavailable Liz Capellan DO Primary Care Provider [phone] Yasmin Restrepo MD Unavailable Reason for Visit * Reason Comments Medication Refill Encounter Details Date Type Department Care Team (Late st Contact Info) Description 10/16/2021 Refill [facility] - [facility] #2 [place] [address] Keith Craft MD #1 [place] [address] Medication Refill Social History Tobacco Use Types [...] Tesfaye 09/08/21 Office Visit Brie Denis, PAC [facility] 08/14/21 Office Visit Keith Craft MD [facility] 07/31/21 Office Visit Keith Craft MD [facility] 05/25/21 Office Visit Marcin Anderson, CORPORATION PILOT, ORACLE BPM DEVELOPER [facility] 05/05/21 Office Visit Brie Denis, PAC [facility] 04/14/21 Office Visit Keith Craft MD [facility] 03/23/21 Office Visit Keith rCaft MD [facility] 02/07/21 Office Visit Keith Craft MD [facility] 02/03/21 Office Visit Cira Brie Palma, [facility] Show[facility] recent visits within past 730 days and meeting all other requirements Future Appointments Date Type Provider Dept 10/24/21 Appointment Keith Craft MD [facility] 11/03/21 Appointment Keith Craft MD [facility] 12/19/21 Appointment Keith Craft MD [facility] Showing future appointments within next 90 [...] CDT Office Visit [facility] - Endocrinology - [place] #2 [place] [address] Yasmin Restrepo MD #[address] [phone] 09/02/2024 2:00 PM CDT Appointment [facility] Respiratory Therapy 1 [place] [address] Werner Swift MD #2 [place] [address] Discharge Disposition: Discharged to home or Selfcare 10/08/2024 1:40 PM CDT Office Visit [facility] - Family Medicine - [place] #2 [place] [phone] Liz Capellan, DO 2 [address] [place] [place] [address] 11/16/2024 1:00 PM CDT [facility] - [place] #[address] [place] [address] Werner Swift MD #2 [place] [address] documented as of this encounter Goals Goal [...] Zones/Action plan education. I will notify my Press And Blow Machine Tender if my symptoms fall in the y [...] 04/20/2022 04/30/2022 12:1 8 AM DIRECTOR OF QUALITY CONTROL COVID - 19 07/18/2022 07/18/2022 07/28/2022 12:1 6 AM DIRECTOR OF QUALITY CONTROL COVID - 19 08/21/2022 08/21/2022 08/22/2022 8:31 AM CDT Respiratory Rule Out - RPA 08/21/2022 08/21/2022 0 08/22/2022 3:21 PM CDT COVID - 19 04/18/2023 04/18/2023 04/28/2023 12:1 6 AM DIRECTOR OF QUALITY CONTROL COVID - 19 07/13/2023 07/13/2023 07/23/2023 12:1 6 AM DIRECTOR OF QUALITY CONTROL Respiratory Rule Out - RPA 03/17/2024 03/17/2024 1 3:36 PM CDT COVID - 19 04/27/2024 04/27/2024 04/27/2024 2:19 PM DIRECTOR OF QUALITY CONTROL Respiratory Rule-Out 07/24/2024 07/24/2024 025 2:29 PM DIRECTOR OF QUALITY CONTROL COVID - 19 07/24/2024 07/24/2024 07/24/2024 2:29 PM DIRECTOR OF QUALITY CONTROL Assessment Noted Time PHQ-9 Depression Total Score: 1 03/07/20 21 10:29 AM CDT documented as of this encounter Care Teams Banker Mason Relationship Specialty Start Date End Date Keith Craft MD PCP - General Family Medicine 01/14/19 12/26/23 Liz Capellan DO [address] [address] PCP - General Family Medicine 12/27/23 Quang Locke DO Gastroenterology 01/18/16 Bri Rollins, KATEY [place] Press And Blow Machine Tender 03/07/21 05/22/23 [place] [id number] [address] 05/25/21 Bri Rollins RN [place] Nurse Press And Blow Machine Tender 03/07/21 05/23/23 Werner Swift MD #2 [place] [address] Consulting Physician Pulmonary Disease 01/30/22 Yasmin Restrepo MD #[address] [address] Consulting Physician Endocrinology 07/20/24 documented as of this encounter
--- OUTSIDE RECORDS SUMMARY | 2024-08-16 19:32 | XMS_ITS | Encounter Summary ---
Author Organization [facility] Address [address] [place] [address] Phone Care Team Providers Care Sword Swallower Name Role Phone Quang Locke DO Unavailable [phone] Keith Craft MD Primary Care Provider Bri Rollins RN Unavailable Unavailable Silvio Schulte MD Unavailable [phone] Bri Rollins RN Unavailable Unavailable Werner Swift MD Unavailable Liz Capellan DO Primary Care Provider [phone] Yasmin Restrepo MD Unavailable Reason for Visit * Reason Comments Medication Refill Encounter Details Date Type Department Care Team (Late st Contact Info) Description 09/30/2021 Refill [facility] - Family Medicine [facility] #2 [place] [address] Keith Craft MD #1 [place] [address] Medication Refill Social History Tobacco Use Types [...] Dept 09/08/21 Office Visit Brie Denis, PAC [facility] 08/14/21 Office Visit Keith Craft MD [facility] 07/31/21 Office Visit Keith Craft MD [facility] 05/25/21 Office Visit Marcin Anderson APRN, JAKOB [facility] 05/05/21 Office Visit Brie Denis, PAC [facility] 04/14/21 Office Visit Keith Craft MD [facility] 03/23/21 Office Visit Keith Craft MD [facility] 02/07/21 Office Visit Keith Craft MD [facility] 02/03/21 [facility] Office Visit Keith Craft MD [facility] Showing recent visits within past 365 days and meeting all other requirements Future Appointments Date Type Provider Dept 10/05/21 Appointment Keith Craft MD [facility] 12/19/21 Appointment Keith Craft MD [facility] Showing future appointments within next 90 days and meeting all other requirements documented in this encounter Plan of Treatment Upcoming Encounters Date Type Department Care Team (Late st Contact Info) Description 08/27/2024 1:15 PM CDT Office Visit [facility] - Endocrinology - [place] #2 [place] [address] Yasmin Restrepo MD #[address] [address] 09/02/2024 2:00 PM CDT Appointment [facility] Respiratory Therapy 1 [place] [address] Werner Swift MD #2 [place] [address] Discharge Disposition: Discharged to home or Selfcare 10/08/2024 1:40 PM CDT Office Visit [facility] #2 [place] [address] Liz Capellan, DO [address] [address] 11/16/2024 1:00 PM CDT Office Visit [facility] - Pulmonology & Sleep Medicine [facility] #2 [place] [address] Werner Swift MD [address] [place] [address] documented as of this encounter Goals Goal [...] plan education. I will notify my Store Deli Manager if my symptoms fall in the [...] 19 04/20/2022 04/20/2022 04/30/2022 12:1 8 AM BUILDING COORDINATOR COVID - 19 07/18/2022 07/18/2022 07/28/2022 12:1 6 AM BUILDING COORDINATOR COVID - 19 08/21/2022 08/21/2022 08/22/2022 8:31 AM CDT Respiratory Rule Out - RPA 08/21/2022 08/21/2022 0 08/22/2022 3:21 PM CDT COVID - 19 04/18/2023 04/18/2023 04/28/2023 12:1 6 AM BUILDING COORDINATOR COVID - 19 07/13/2023 07/13/2023 07/23/2023 12:1 6 AM BUILDING COORDINATOR Respiratory Rule Out - RPA 03/17/2024 03/17/2024 1 3:36 PM CDT COVID - 19 04/27/2024 04/27/2024 04/27/2024 2:19 PM BUILDING COORDINATOR Respiratory Rule-Out 07/24/2024 07/24/2024 025 2:29 PM BUILDING COORDINATOR COVID - 19 07/24/2024 07/24/2024 07/24/2024 2:29 PM BUILDING COORDINATOR Assessment Noted Time PHQ-9 Depression Total Score: 1 03/07/20 21 10:29 AM CDT documented as of this encounter Care Teams Sword Swallower Relationship Specialty Start Date End Date Keith Craft MD PCP - General Family Medicine 01/14/19 12/26/23 Liz Capellan DO [address] [address] PCP - General Family Medicine 12/27/23 Quang Locke DO Gastroenterology 01/18/16 Bri Rollins, RN [place] Store Deli Manager 03/07/21 05/22/23 [place] [address] [address] 05/25/21 Bri Rollins RN [place] Nurse Store Deli Manager 03/07/21 05/23/23 Werner Swift MD #2 [place] [address] Consulting Physician Pulmonary Disease 01/30/22 Yasmin Restrepo MD #[address] [address] Consulting Physician Endocrinology 07/20/24 documented as of this encounter
--- OUTSIDE RECORDS SUMMARY | 2024-08-16 19:32 | XMS_ITS | Encounter Summary ---
Author Organization [facility] Address [address] [place] [address] Phone Care Team Providers Care Director Counseling Bureau Name Role Phone Quang Locke DO Unavailable [phone] Keith Craft MD Primary Care Provider [phone] Bri Rollins RN Unavailable Unavailable Silvio Schulte MD Unavailable [phone] Bri Rollins RN Unavailable Unavailable Werner Swift MD Unavailable Liz Capellan DO Primary Care Provider [phone] Yasmin Restrepo MD Unavailable Reason for Visit * Reason Comments Medication Refill Encounter Details Date Type Department Care Team (Late st Contact Info) Description 05/06/2021 Refill [facility] #2 [place] [address] Keith Craft MD #1 [place] [address] Medication Refill Social History Tobacco Use Types [...] COVID-19? No / Unsure 05/05/2021 3:02 PM BRUSH POLISHER documented as of this encounter Miscellaneous Notes [...] Provider Dept 05/05/21 Office Visit Brie Denis, [facility] [place] 04/14/21 Office Visit Keith Craft MD [facility] 03/23/21 Office Visit Keith Craft MD [facility] 02/07/21 Office Visit Keith Craft MD [facility] 02/03/21 Office Visit Brie Denis, [facility] [place] 01/12/21 Office Visit Keith Craft MD [facility] 10/12/20 Office Visit Keith Craft MD [facility] 10/04/20 Office Visit Keith Craft MD [facility] [place] 06/07/20 Office Visit Keith Craft MD [facility] [address] Showing recent visits within past 365 days and meeting all other requirements Future Appointments No visits were found meeting these conditions. Showing future appointments within next 90 days and meeting all other requirements Passed - Active short-acting beta agonist prescription H POLISHER documented in this encounter Plan of Treatment Upcoming Encounters Date Type Department Care Team (Late st Contact Info) Description 08/27/2024 1:15 PM CDT Office Visit [facility] - Endocrinology - [place] #2 [place] [address] Yasmin Restrepo MD #[address] [address] 09/02/2024 2:00 PM CDT Appointment [facility] Respiratory Therapy 1 [place] [address] Werner Swift MD #2 [place] [address] Discharge Disposition: Discharged to home or Selfcare 10/08/2024 1:40 PM CDT Office Visit [facility] - Family Medicine - [place] #2 [place] [address] Liz Capellan, DO [address] [address] 11/16/2024 1:00 PM CDT Office Visit [facility] - Pulmonology & Sleep Medicine - [place] #2 [facility] [address] Werner Swift MD #2 [place] [address] documented as of this encounter Goals Goal [...] Zones/Action plan education. I will notify my Tax Economist if my symptoms fall in the y [...] - 19 07/23/2021 07/23/2021 07/24/2021 6:31 AM BRUSH POLISHER COVID - 19 10/19/2021 10/19/2021 10/20/2021 7:45 AM CDT Respiratory Rule Out - RPA 10/19/2021 10/19/2021 0 10/20/2021 2:10 PM CDT Stenotrophomonas maltophilia Comment:Must have a follow up respiratory sample to remove isolation flag. 10/20/2021 10/20/2021 COVID - 19 04/20/2022 04/20/2022 04/30/2022 12:1 8 AM BRUSH POLISHER COVID - 19 07/18/2022 07/18/2022 07/28/2022 12:1 6 AM BRUSH POLISHER COVID - 19 08/21/2022 08/21/2022 08/22/2022 8:31 AM CDT Respiratory Rule Out - RPA 08/21/2022 08/21/2022 0 08/22/2022 3:21 PM CDT COVID - 19 04/18/2023 04/18/2023 04/28/2023 12:1 6 AM BRUSH POLISHER COVID - 19 07/13/2023 07/13/2023 07/23/2023 12:1 6 AM BRUSH POLISHER Respiratory Rule Out - RPA 03/17/2024 03/17/2024 1 3:36 PM CDT COVID - 19 04/27/2024 04/27/2024 04/27/2024 2:19 PM BRUSH POLISHER Respiratory Rule-Out 07/24/2024 07/24/2024 025 2:29 PM BRUSH POLISHER COVID - 19 07/24/2024 07/24/2024 07/24/2024 2:29 PM BRUSH POLISHER Assessment Noted Time PHQ-9 Depression Total Score: 1 03/07/20 21 10:29 AM CDT documented as of this encounter Care Teams Director Counseling Bureau Relationship Specialty Start Date End Date Keith Craft MD PCP - General Family Medicine 01/14/19 12/26/23 Liz Capellan DO [address] [address] PCP - General Family Medicine 12/27/23 Quang Locke DO Gastroenterology 01/18/16 Bri Rollins RN [place] Tax Economist 03/07/21 05/22/23 [place] [address] [address] 05/25/21 Bri Rollins, RN [place] Nurse Tax Economist 03/07/21 05/23/23 Werner Swift MD #2 [place] [address] Consulting Physician Pulmonary Disease 01/30/22 Yasmin Restrepo MD #[address] [address] Consulting Physician Endocrinology 07/20/24 documented as of this encounter
--- OUTSIDE RECORDS SUMMARY | 2024-08-16 19:32 | XMS_ITS | Encounter Summary ---
Author Organization [facility] Address [address] [place] [address] Phone Care Team Providers Care Mapping Pilot Name Role Phone Quang Locke DO Unavailable [phone] Keith Craft MD Primary Care Provider [phone] Bri Rollins RN Unavailable Unavailable Silvio Schulte MD Unavailable Bri Rollins RN Unavailable Unavailable Werner Swift MD Unavailable Liz Capellan DO Primary Care Provider [phone] Yasmin Restrepo MD Unavailable Encounter Details Date Type Department Care Team (Late st Contact Info) Description 04/24/2023 Telephone [facility] [address] [place] [address] Keith Craft MD #1 [place] [address] Social History Tobacco Use Types [...] CST This was sent in by pulmology. APPRENTICE MECHANIC * Telephone Encounter - Kunal Garcia, RN - 04/24/2023 8:49 AM CST Message [...] is covered by her insurance. She uses [facility]. Thank you for your assistance with this. APPRENTICE MECHANIC documented in this encounter Plan of Treatment Upcoming Encounters Date Type Department Care Team (Late st Contact Info) Description 08/27/2024 1:15 PM CDT Office Visit [facility] - Endocr[facility]ology - [place] [address] [place] [address] Yasmin Restrepo MD [address] [address] 09/02/2024 2:00 PM CDT Appointment [facility] Respiratory Therapy 1 [place] [address] Werner Swift MD #2 [place] [address] Discharge Disposition: Discharged to home or Selfcare 10/08/2024 1:40 PM CDT Office Visit [facility] - Family Medicine [facility] #2 [place] [address] Liz Capellan, DO [address] [address] 11/16/2024 1:00 PM CDT Office Visit [facility] - Pulmonology & Sleep Medicine [facility] #2 [place] [address] Werner Swift MD #[address] [place] [address] documented as of this encounter Goals Goal [...] Zones/Action plan education. I will notify my Engineering Librarian if my symptoms fall in the y [...] 19 04/18/2023 04/18/2023 04/28/2023 12:1 6 AM AUTO APPRENTICE MECHANIC COVID - 19 07/13/2023 07/13/2023 07/23/2023 12:1 6 AM AUTO APPRENTICE MECHANIC Respiratory Rule Out - RPA 03/17/2024 03/17/2024 1 3:36 PM CDT COVID - 19 04/27/2024 04/27/2024 04/27/2024 2:19 PM AUTO APPRENTICE MECHANIC Respiratory Rule-Out 07/24/2024 07/24/2024 025 2:29 PM AUTO APPRENTICE MECHANIC COVID - 19 07/24/2024 07/24/2024 07/24/2024 2:29 PM AUTO APPRENTICE MECHANIC Assessment Noted Time PHQ-9 Depression Total Score: 1 03/07/20 21 10:29 AM CDT documented as of this encounter Care Teams Mapping Pilot Relationship Specialty Start Date End Date Keith Craft MD PCP - General Family Medicine 01/14/19 12/26/23 Liz Capellan DO 2 [facility] [address] [address] PCP - General Family Medicine 12/27/23 Quang Locke DO Gastroenterology 01/18/16 Bri Rollins, RN [place] Engineering Librarian 03/07/21 05/22/23 [place] [address] [address] 05/25/21 Bri Rollins RN [place] Nurse Engineering Librarian 03/07/21 05/23/23 Werner Swift MD #2 [place] [address] Consulting Physician Pulmonary Disease 01/30/22 Yasmin Restrepo MD #[address] [address] Consulting Physician Endocrinology 07/20/24 documented as of this encounter
--- OUTSIDE RECORDS SUMMARY | 2024-08-16 19:32 | XMS_ITS | Encounter Summary ---
Author Organization [facility] Address [address] [place] [address] Phone Care Team Providers Care Varnish Blender Name Role Phone Quang Locke DO Unavailable [phone] Keith Craft MD Primary Care Provider [phone] Bri Rollins RN Unavailable Unavailable Silvio Schulte MD Unavailable [phone] Bri Rollins RN Unavailable Unavailable Werner Swift MD Unavailable Liz Capellan DO Primary Care Provider [phone] Yasmin Restrepo MD Unavailable Reason for Visit * Reason Comments Medication Refill Encounter Details Date Type Department Care Team (Late st Contact Info) Description 02/13/2020 Refill [facility] Medicine [facility] #2 [place] [address] Keith Craft MD #1 [place] [address] Medication Refill Social History Tobacco Use Types [...] neuropathy, with long-term current use of insulin(HCC) [facility] - Keith Jenkins MD 3 months ago Chronic prescription opiate use [facility] Keith Lemus MD 6 months ago 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 [facility] Keith Lemus MD 8 months ago COPD exacerbation (HCC) [facility] Brie Vieira PAC 10 months ago Type 2 diabetes mellitus with diabetic neuropathy, with long-term current use of insulin (HCC) [facility] Keith Lemus MD Upcoming Appointments Future Appointments In 3 months Keith Craft MD [facility] [place] [facility] OFFICER - Recent and Past Visits Recent Visits Date Type Provider Dept 02/02/20 Office Visit Keith Craft MD [facility] 11/02/19 Office Visit Keith Craft MD [facility] 07/27/19 Office Visit Keith Craft MD [facility] 06/10/19 Office Visit Brie Denis PAC [facility] [place] 04/20/19 Office Visit Keith Craft MD [facility] 01/14/19 Office Visit Keith Craft MD [facility] [place] Showing recent visits within past [...] diabetic neuropathy, with long-term current use of insulin(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) [facility] Brie Castano PAC 10 months ago Type 2 diabetes mellitus with diabetic neuropathy, with long-term current use of insulin ([facility]) [employer] [employer] [facility] Keith Lemus MD Upcoming Appointments Future Appointments In 3 months Keith Craft MD [facility] Family [facility], [facility]'S OFFICER - Recent and Past Visits Recent Visits Date Type Provider Dept 02/02/20 Office Visit Keith Craft MD [facility] 11/02/19 Office Visit Keith Craft MD [facility] 07/27/19 Office Visit Keith Craft MD [facility] 06/10/19 Office Visit Brie Denis, [facility] [place] 04/20/19 Office Visit Keith Craft MD [facility] 01/14/19 Office Visit [facility] Showing recent visits within past 460 [...] Description 08/27/2024 1:15 PM CDT Office Visit [facility] Endocrinology [facility] #2 [place] [address] Yasmin Restrepo MD #[address] [address] 09/02/2024 2:00 PM CDT [facility] 1 [place] [address] Werner Swift MD #2 [place] [address] Discharge Disposition: Discharged to home or Selfcare 10/08/2024 1:40 PM CDT Office Visit [facility] #2 [place] [address] Liz Capellan, DO 2 [facility]. [address] [place] [address] 11/16/2024 1:00 PM CDT [facility] & [facility] - [place] #[address] [place] [address] Werner Swift MD #2 [place] [address] documented as of this encounter Visit Diagnoses Diagnosis Anxiety and depression Dysthymic disorder documented in this encounter Additional Health Concerns Infection Onset Date Last Indicated Resolved Time COVID - 19 01/25/2021 01/25/2021 01/31/2021 8:10 AM CDT Respiratory Rule Out - RPA 01/30/2021 01/30/2021 0 02/01/2021 12:45 AM CDT COVID - 19 07/23/2021 07/23/2021 07/24/2021 6:31 AM NET MOBILE DEVELOPER COVID - 19 10/19/2021 10/19/2021 10/20/2021 7:45 AM CDT Respiratory Rule Out - RPA 10/19/2021 10/19/2021 0 10/20/2021 2:10 PM CDT Stenotrophomonas maltophilia Comment:Must have a follow up respiratory sample to remove isolation flag. 10/20/2021 10/20/2021 COVID - 19 04/20/2022 04/20/2022 04/30/2022 12:1 8 AM NET MOBILE DEVELOPER COVID - 19 07/18/2022 07/18/2022 07/28/2022 12:1 6 AM NET MOBILE DEVELOPER COVID - 19 08/21/2022 08/21/2022 08/22/2022 8:31 AM CDT Respiratory Rule Out - RPA 08/21/2022 08/21/2022 0 08/22/2022 3:21 PM CDT COVID - 19 04/18/2023 04/18/2023 04/28/2023 12:1 6 AM NET MOBILE DEVELOPER COVID - 19 07/13/2023 07/13/2023 07/23/2023 12:1 6 AM NET MOBILE DEVELOPER Respiratory Rule Out - RPA 03/17/2024 03/17/2024 1 3:36 PM CDT COVID - 19 04/27/2024 04/27/2024 04/27/2024 2:19 PM NET MOBILE DEVELOPER Respiratory Rule-Out 07/24/2024 07/24/2024 025 2:29 PM NET MOBILE DEVELOPER COVID - 19 07/24/2024 07/24/2024 07/24/2024 2:29 PM NET MOBILE DEVELOPER Assessment Noted Time PHQ-9 Depression Total Score: 1 06/10/19 20 1:03 PM NET MOBILE DEVELOPER documented as of this encounter Care Teams Varnish Blender Relationship Specialty Start Date End Date Keith Craft MD PCP - General Family Medicine 01/14/19 12/26/23 Liz Capellan DO [address] [address] PCP - General Family Medicine 12/27/23 Quang Locke DO Gastroenterology 01/18/16 Bri Rollins RN [place] Front Desk Agent 03/07/21 05/22/23 [place] [address] [address] 05/25/21 Bri Rollins RN [place] Nurse Front Desk Agent 03/07/21 05/23/23 Werner Swift MD #2 [place] [address] Consulting Physician Pulmonary Disease 01/30/22 Yasmin Restrepo MD [address] [address] Consulting Physician Endocrinology 07/20/24 documented as of this encounter
--- OUTSIDE RECORDS SUMMARY | 2024-08-16 19:32 | XMS_ITS | Encounter Summary ---
Author Organization [facility] Address [address] [place] [address] Phone Care Team Providers Care Risk Prevention Engineer Name Role Phone Quang Locke DO Unavailable [phone] Keith Craft MD Primary Care Provider [phone] Bri Rollins RN Unavailable Unavailable Silvio Schulte MD Unavailable [phone] Bri Rollins RN Unavailable Unavailable Werner Swift MD Unavailable Liz Capellan DO Primary Care Provider [phone] Yasmin Restrepo MD Unavailable Encounter Details Date Type Department Care Team (Late st Contact Info) Description 04/22/2023 Telephone [facility] Health [address] [place] [address] Keith Craft MD #1 [place] [address] Social History Tobacco Use Types [...] amitriptyline is ok With levaquine is fine. [facility] END DEPARTMENT * Telephone Encounter - Kunal Garcia RN [...] discontinue? Please review the following potential major vddn-lo-epda interactions: DULoxetine and amitriptyline Duloxetine may increase [...] to P Clinical Support Triage or call [facility] [place] [phone] option 4 for a nurse. Response is required within 24 hours to meet regulatory requirements. Thank you [facility] documented in this encounter Plan of Treatment Upcoming Encounters Date Type Department Care Team (Late st Contact Info) Description 08/27/2024 1:15 PM CDT Office Visit [facility] - Endocrinology - [place] #2 [place] [address] Yasmin Restrepo MD #[address] [address] 09/02/2024 2:00 PM CDT Appointment [facility] Respiratory Therapy 1 [place] [address] Werner Swift MD #2 [place] [address] Discharge Disposition: Discharged to home or Selfcare 10/08/2024 1:40 PM CDT Office [facility] - Family Medicine - [place] #2 [place] [address] Liz Capellan, DO [address] [address] 11/16/2024 1:00 PM CDT Office Visit [facility] - Pulmonology & Sleep Medicine - [place] [address] [place] [address] Werner Swift MD #2 [place] [address] documented as of this encounter Goals Goal [...] Zones/Action plan education. I will notify my Board Lining Machine Operator if my symptoms fall in the [...] 04/18/2023 04/18/2023 04/28/2023 12:1 6 AM SUPERVISOR GREEN END DEPARTMENT COVID - 19 07/13/2023 07/13/2023 07/23/2023 12:1 6 AM SUPERVISOR GREEN END DEPARTMENT Respiratory Rule Out - RPA 03/17/2024 03/17/2024 1 3:36 PM CDT COVID - 19 04/27/2024 04/27/2024 04/27/2024 2:19 PM SUPERVISOR GREEN END DEPARTMENT Respiratory Rule-Out 07/24/2024 07/24/2024 025 2:29 PM SUPERVISOR GREEN END DEPARTMENT COVID - 19 07/24/2024 07/24/2024 07/24/2024 2:29 PM SUPERVISOR GREEN END DEPARTMENT Assessment Noted Time PHQ-9 Depression Total Score: 1 03/07/20 21 10:29 AM CDT documented as of this encounter Care Teams Risk Prevention Engineer Relationship Specialty Start Date End Date Keith Craft MD PCP - General Family Medicine 01/14/19 12/26/23 Liz Capellan DO [address] [address] PCP - General Family Medicine 12/27/23 Quang Locke DO Gastroenterology 01/18/16 Bri Rollins RN [place] Board Lining Machine Operator 03/07/21 05/22/23 [place] [address] [address] 05/25/21 Bri Rollins, [place] Nurse Board Lining Machine Operator 03/07/21 05/23/23 Werner Swift MD #2 [place] [address] Consulting Physician Pulmonary Disease 01/30/22 Yasmin Restrepo MD #[address] [address] Consulting Physician Endocrinology 07/20/24 documented as of this encounter
--- OUTSIDE RECORDS SUMMARY | 2024-08-16 19:32 | XMS_ITS | Encounter Summary ---
Author Organization [facility] Address [address] [place] [address] Phone Care Team Providers Care Mechanic And Welder Name Role Phone Quang Locke DO Unavailable [phone] Allison Robles MD Primary Care Provider [phone] Bri Rollins RN Unavailable Unavailable Silvio Schulte MD Unavailable [phone] Bri Rollins RN Unavailable Unavailable Werner Swift MD Unavailable Liz Capellan DO Primary Care Provider [phone] Yasmin Restrepo MD Unavailable Reason for Visit * Reason Comments Medication Refill Encounter Details Date Type Department Care Team (Late st Contact Info) Description 02/03/2020 Refill [facility] #2 [place] [address] Allison Robles MD #1 [place] [address] Medication Refill Social History Tobacco Use Types [...] 30 0 30 , ALLISON ROBLES MD [facility] DIAZEPAM 12/07/2019 12/07/2019 10MG 30 0 30 , ALLISON ROBLES MD [facility] DIAZEPAM 11/05/2019 11/05/2019 10MG 30 0 30 , ALLISON ROBLES MD [facility] External Sources Source Last Checked for Updates Status [facility] 02/03/2020 9:25 AM History Response Filed documented in this encounter Plan of Treatment Upcoming Encounters Date Type Department Care Team (Late st Contact Info) Description 08/27/2024 1:15 PM CDT Office Visit [facility] - Endocrinology - [place] #2 [place] [address] Yasmin Restrepo MD #[address] [address] 09/02/2024 2:00 PM CDT [facility]ointment [facility] Res[facility] 1 [place] [address] Werner Swift MD #2 [place] [address] Discharge Disposition: Discharged to home or Selfcare 10/08/2024 1:40 PM CDT Office Visit [facility] - Family Medicine [facility] #2 [place] [address] Liz Capellan, DO [address] [address] 11/16/2024 1:00 PM CDT Office Visit [facility] - Pulmonology & Sleep Medicine [facility] #2 [place] [address] Werner Swift MD #2 [place] [address] documented as of this encounter Visit Diagnoses Diagnosis Anxiety and depression Dysthymic disorder documented in this encounter Additional Health Concerns Infection Onset Date Last Indicated Resolved Time COVID - 19 01/25/2021 01/25/2021 01/31/2021 8:10 AM CDT Respiratory Rule Out - RPA 01/30/2021 01/30/2021 0 02/01/2021 12:45 AM CDT COVID - 19 07/23/2021 07/23/2021 07/24/2021 6:31 AM STORE TEAM LEADER COVID - 19 10/19/2021 10/19/2021 10/20/2021 7:45 AM CDT Respiratory Rule Out - RPA 10/19/2021 10/19/2021 0 10/20/2021 2:10 PM CDT Stenotrophomonas maltophilia Comment:Must have a follow up respiratory sample to remove isolation flag. 10/20/2021 10/20/2021 COVID - 19 04/20/2022 04/20/2022 04/30/2022 12:1 8 AM STORE TEAM LEADER COVID - 19 07/18/2022 07/18/2022 07/28/2022 12:1 6 AM STORE TEAM LEADER COVID - 19 08/21/2022 08/21/2022 08/22/2022 8:31 AM CDT Respiratory Rule Out - RPA 08/21/2022 08/21/2022 0 08/22/2022 3:21 PM CDT COVID - 19 04/18/2023 04/18/2023 04/28/2023 12:1 6 AM STORE TEAM LEADER COVID - 19 07/13/2023 07/13/2023 07/23/2023 12:1 6 AM STORE TEAM LEADER Respiratory Rule Out - RPA 03/17/2024 03/17/2024 1 3:36 PM CDT COVID - 19 04/27/2024 04/27/2024 04/27/2024 2:19 PM STORE TEAM LEADER Respiratory Rule-Out 07/24/2024 07/24/2024 025 2:29 PM STORE TEAM LEADER COVID - 19 07/24/2024 07/24/2024 07/24/2024 2:29 PM STORE TEAM LEADER Assessment Noted Time PHQ-9 Depression Total Score: 1 06/10/19 20 1:03 PM STORE TEAM LEADER documented as of this encounter Care Teams Mechanic And Welder Relationship Specialty Start Date End Date Allison Robles MD PCP - General Family Medicine 01/14/19 12/26/23 Liz Capellan DO 2 [facility] [address] [address] PCP - General Family Medicine 12/27/23 Quang Locke DO Gastroenterology 01/18/16 Bri Rollins, RN [place] Worsted Winder 03/07/21 05/22/23 [place] [address] [address] 05/25/21 Bri Rollins RN [place] Nurse Worsted Winder 03/07/21 05/23/23 Werner Swift MD #2 [place] [address] Consulting Physician Pulmonary Disease 01/30/22 Yasmin Restrepo MD #[address] [address] Consulting Physician Endocrinology 07/20/24 documented as of this encounter
--- OUTSIDE RECORDS SUMMARY | 2024-08-16 19:32 | XMS_ITS | Encounter Summary ---
Author Organization [facility] Address [address] [place] [address] Phone Care Team Providers Care Channel Lip Stiffener Insoles Name Role Phone Quang Locke DO Unavailable [phone] Keith Craft MD Primary Care Provider [phone] Bri Rollins RN Unavailable Unavailable Silvio Schulte MD Unavailable [phone] Bri Rollins RN Unavailable Unavailable Werner Swift MD Unavailable Liz Capellan DO Primary Care Provider [phone] Yasmin Restrepo MD Unavailable Reason for Visit * Reason Comments Medication Refill Encounter Details Date Type Department Care Team (Late st Contact Info) Description 03/31/2020 Refill [facility] #2 [place] [address] Keith Craft MD #1 [place] [address] Medication Refill Social History Tobacco Use Types [...] encounter Miscellaneous Notes * Telephone Encounter - RogelioBridget KATEY Perkins - 03/31/2020 11:29 AM CST Medication failed [...] 1 month ago Acute non-recurrent maxillary sinusitis [facility] Keith Lemus MD 5 months ago Chronic prescription opiate use [facility] Keith Lemus MD 8 months ago Coronary artery disease involving [place] coronary artery of [place] heart without angina pectoris [facility] Keith Lemus MD 9 months ago COPD exacerbation (HCC) [facility] Brie Castano PAC 11 months ago Type 2 diabetes mellitus with diabetic neuropathy, with long-term current use of insulin ([facility]) [facility] Keith Lemus MD Upcoming Appointments Future Appointments In 2 months Keith Craft MD [facility] [employer] AND [employer]MER [employer] - Recent and Past Visits Recent Visits Date Type Provider Dept 02/02/20 Office Visit Keith Craft MD [facility] 11/02/19 Office Visit Keith Craft MD [facility] 07/27/19 Office Visit Keith Craft MD [facility] 06/10/19 Office Visit [facility] Denis [facility] 04/20/19 Office Visit Keith Craft MD [facility] 01/14/19 Office Visit Keith Craft MD [facility] Showing recent visits within past 460 days with a meds authorizing provider and meeting all other requirements Future Appointments Date Type Provider Dept 06/07/20 Appointment Keith Craft MD [facility] Showing future appointments within next 90 days with a meds authorizing provider and meeting all other requirements CE RECORDS CLERK documented in this encounter Plan of Treatment Upcoming Encounters Date Type Department Care Team (Late st Contact Info) Description 08/27/2024 1:15 PM CDT Office Visit [facility] - Endocrinology - [place] #2 [place] [address] Yasmin Restrepo MD #[address] [address] 09/02/2024 2:00 PM CDT [facility] 1 [place] [address] Werner Swift MD #2 [place] [address] Discharge Disposition: Discharged to home or Selfcare 10/08/2024 1:40 PM CDT Office Visit [facility] - Family Medicine [facility] #2 [place] [address] Liz Capellan, DO [address] [address] 11/16/2024 1:00 PM CDT Office Visit [facility] - Pulmonology & Sleep Medicine [facility] [address] [place] [address] Werner Swift MD [address] [place] [address] documented as of this encounter Visit Diagnoses Diagnosis Anxiety and depression Dysthymic disorder documented in this encounter Additional Health Concerns Infection Onset Date Last Indicated Resolved Time COVID - 19 01/25/2021 01/25/2021 01/31/2021 8:10 AM CDT Respiratory Rule Out - RPA 01/30/2021 01/30/2021 0 02/01/2021 12:45 AM CDT COVID - 19 07/23/2021 07/23/2021 07/24/2021 6:31 AM POLICE RECORDS CLERK COVID - 19 10/19/2021 10/19/2021 10/20/2021 7:45 AM CDT Respiratory Rule Out - RPA 10/19/2021 10/19/2021 0 10/20/2021 2:10 PM CDT Stenotrophomonas maltophilia Comment:Must have a follow up respiratory sample to remove isolation flag. 10/20/2021 10/20/2021 COVID - 19 04/20/2022 04/20/2022 04/30/2022 12:1 8 AM POLICE RECORDS CLERK COVID - 19 07/18/2022 07/18/2022 07/28/2022 12:1 6 AM POLICE RECORDS CLERK COVID - 19 08/21/2022 08/21/2022 08/22/2022 8:31 AM CDT Respiratory Rule Out - RPA 08/21/2022 08/21/2022 0 08/22/2022 3:21 PM CDT COVID - 19 04/18/2023 04/18/2023 04/28/2023 12:1 6 AM POLICE RECORDS CLERK COVID - 19 07/13/2023 07/13/2023 07/23/2023 12:1 6 AM POLICE RECORDS CLERK Respiratory Rule Out - RPA 03/17/2024 03/17/2024 1 3:36 PM CDT COVID - 19 04/27/2024 04/27/2024 04/27/2024 2:19 PM POLICE RECORDS CLERK Respiratory Rule-Out 07/24/2024 07/24/2024 025 2:29 PM POLICE RECORDS CLERK COVID - 19 07/24/2024 07/24/2024 07/24/2024 2:29 PM POLICE RECORDS CLERK Assessment Noted Time PHQ-9 Depression Total Score: 1 06/10/19 20 1:03 PM POLICE RECORDS CLERK documented as of this encounter Care Teams Channel Lip Stiffener Insoles Relationship Specialty Start Date End Date Keith Craft MD PCP - General Family Medicine 01/14/19 12/26/23 Liz Capellan DO [address] [address] PCP - General Family Medicine 12/27/23 Quang Locke DO Gastroenterology 01/18/16 Bri Rollins RN [place] Dairy Quality Assurance Officer 03/07/21 05/22/23 [place] [id number] [address] 05/25/21 Bri Rollins RN [place] Nurse Dairy Quality Assurance Officer 03/07/21 05/23/23 Werner Swift MD #2 [place] [address] Consulting Physician Pulmonary Disease 01/30/22 Yasmin Restrepo MD #[address] [address] Consulting Physician Endocrinology 07/20/24 documented as of this encounter
--- OUTSIDE RECORDS SUMMARY | 2024-08-16 19:32 | XMS_ITS | Encounter Summary ---
Author Organization [facility] Address [address] [place] [address] Phone Care Team Providers Care Caddy Master Name Role Phone Quang Locke DO Unavailable [phone] Keith Craft MD Primary Care Provider [phone] Bri Rollins RN Unavailable Unavailable Silvio Schulte MD Unavailable [phone] Bri Rollins RN Unavailable Unavailable Werner Swift MD Unavailable Liz Capellan DO Primary Care Provider [phone] Yasmin Restrepo MD Unavailable Reason for Visit * Reason Comments Medication Refill Encounter Details Date Type Department Care Team (Late st Contact Info) Description 11/05/2019 Refill [facility] #2 [place] [address] Keith Craft MD #1 [place] [address] Medication Refill Social History Tobacco Use Types [...] 3 days ago Chronic prescription opiate use [facility] Keith Craft MD 3 months ago Coronary artery disease involving [place] coronary artery of [place] heart without angina pectoris [facility] Keith Craft MD 4 months ago COPD exacerbation (HCC) [facility] Brie Denis PAC 6 months ago Type 2 diabetes mellitus with diabetic neuropathy, with long-term current use of insulin (HCC) [facility] Keith Elizalde MD 9 months ago Type 2 diabetes mellitus with diabetic neuropathy, with long-term current use of insulin (HCC) [facility] Keith Elizalde MD Upcoming Appointments Future Appointments In 4 days [facility] In 4 days [facility], [facility] In 2 months Keith Craft MD [facility], [facility] documented in this encounter Plan of Treatment Upcoming Encounters Date Type Department Care Team (Late st Contact Info) Description 08/27/2024 1:15 PM CDT Office Visit [facility] - Endocrinology - [place] #2 [place] [address] Yasmin Restrepo MD #[address] [phone] 09/02/2024 2:00 PM CDT [facility] 1 [place] [address] Werner Swift MD #2 [place] [address] Discharge Disposition: Discharged to home or Selfcare 10/08/2024 1:40 PM CDT Office Visit [facility] - Family Medicine [facility] #2 [place] [address] Liz Capellan, DO [address] [address] 11/16/2024 1:00 PM CDT Office Visit [facility] - Pulmonology & Sleep Medicine [facility] #2 [place] [address] Werner Swift MD #2 [place] [address] documented as of this encounter Visit Diagnoses Diagnosis Anxiety and depression Dysthymic disorder documented in this encounter Additional Health Concerns Infection Onset Date Last Indicated Resolved Time COVID - 19 01/25/2021 01/25/2021 01/31/2021 8:10 AM CDT Respiratory Rule Out - RPA 01/30/2021 01/30/2021 0 02/01/2021 12:45 AM CDT COVID - 19 07/23/2021 07/23/2021 07/24/2021 6:31 AM PREVENTIVE MEDICINE PHYSICIAN COVID - 19 10/19/2021 10/19/2021 10/20/2021 7:45 AM CDT Respiratory Rule Out - RPA 10/19/2021 10/19/2021 0 10/20/2021 2:10 PM CDT Stenotrophomonas maltophilia Comment:Must have a follow up respiratory sample to remove isolation flag. 10/20/2021 10/20/2021 COVID - 19 04/20/2022 04/20/2022 04/30/2022 12:1 8 AM PREVENTIVE MEDICINE PHYSICIAN COVID - 19 07/18/2022 07/18/2022 07/28/2022 12:1 6 AM PREVENTIVE MEDICINE PHYSICIAN COVID - 19 08/21/2022 08/21/2022 08/22/2022 8:31 AM CDT Respiratory Rule Out - RPA 08/21/2022 08/21/2022 0 08/22/2022 3:21 PM CDT COVID - 19 04/18/2023 04/18/2023 04/28/2023 12:1 6 AM PREVENTIVE MEDICINE PHYSICIAN COVID - 19 07/13/2023 07/13/2023 07/23/2023 12:1 6 AM PREVENTIVE MEDICINE PHYSICIAN Respiratory Rule Out - RPA 03/17/2024 03/17/2024 1 3:36 PM CDT COVID - 19 04/27/2024 04/27/2024 04/27/2024 2:19 PM PREVENTIVE MEDICINE PHYSICIAN Respiratory Rule-Out 07/24/2024 07/24/2024 025 2:29 PM PREVENTIVE MEDICINE PHYSICIAN COVID - 19 07/24/2024 07/24/2024 07/24/2024 2:29 PM PREVENTIVE MEDICINE PHYSICIAN Assessment Noted Time PHQ-9 Depression Total Score: 1 06/10/19 20 1:03 PM PREVENTIVE MEDICINE PHYSICIAN documented as of this encounter Care Teams Caddy Master Relationship Specialty Start Date End Date Keith Craft MD PCP - General Family Medicine 01/14/19 12/26/23 Liz Capellan DO 2 [facility] [address] [place], [place] [id number] PCP - General Family Medicine 12/27/23 Quang Locke DO Gastroenterology 01/18/16 Bri Rollins, RN [place] Architecture Intern 03/07/21 05/22/23 [place] [address] [address] 05/25/21 Bri Rollins, RN [place] Nurse Architecture Intern 03/07/21 05/23/23 Werner Swift MD #2 [place] [address] Consulting Physician Pulmonary Disease 01/30/22 Yasmin Restrepo MD #[address] [phone] Consulting Physician Endocrinology 07/20/24 documented as of this encounter
--- OUTSIDE RECORDS SUMMARY | 2024-08-16 19:32 | XMS_ITS | Encounter Summary ---
Author Organization [facility] Address [address] [place] [address] Phone Care Team Providers Care Paver Name Role Phone Quang Locke DO Unavailable [phone] Keith Craft MD Primary Care Provider [phone] Bri Rollins RN Unavailable Unavailable Silvio Schulte MD Unavailable [phone] Bri Rollins RN Unavailable Unavailable Werner Swift MD Unavailable Liz Capellan DO Primary Care Provider [phone] Yasmin Restrepo MD Unavailable Reason for Visit * Reason Comments Medication Refill Encounter Details Date Type Department Care Team (Late st Contact Info) Description 10/02/2021 [facility]ill [facility] Medical [address] [place] [address] Keith Craft MD #1 [place] [address] Medication Refill Social History Tobacco Use Types [...] information for this order ergocalciferol (VITAMIN D) 46616 UNIT Capsule [Pharmacy Med Name: VITAMIN D [id number] CAPSULE] 12 Capsule 0 Sig: TAKE ONE CAPSULE BY MOUTH ONE TIME WEEKLY There is no refill protocol information for this order documented in this encounter Plan of Treatment Upcoming Encounters Date Type Department Care Team ([facility] Contact Info) Description 08/27/2024 1:15 PM CDT Office Visit [facility] - Endocrinology - [place] #2 [place] [address] Yasmin Restrepo MD #[address] [address] 09/02/2024 2:00 PM CDT [facility] 1 [place] [address] Werner Swift MD #2 [place] [address] Discharge Disposition: Discharged to home or Selfcare 10/08/2024 1:40 PM CDT Office Visit [facility] Family Medicine [facility] #2 [place] [address] Liz Capellan, DO [address] [address] 11/16/2024 1:00 PM CDT Office Visit [facility] - Pulmonology & Sleep Medicine [facility] #2 [place] [address] Werner Swift MD #2 [place] [address] documented as of this encounter Goals Goal [...] Zones/Action plan education. I will notify my Design Transferrer if my symptoms fall in the y [...] 19 04/20/2022 04/20/2022 04/30/2022 12:1 8 AM RESET MERCHANDISER COVID - 19 07/18/2022 07/18/2022 07/28/2022 12:1 6 AM RESET MERCHANDISER COVID - 19 08/21/2022 08/21/2022 08/22/2022 8:31 AM CDT Respiratory Rule Out - RPA 08/21/2022 08/21/2022 0 08/22/2022 3:21 PM CDT COVID - 19 04/18/2023 04/18/2023 04/28/2023 12:1 6 AM RESET MERCHANDISER COVID - 19 07/13/2023 07/13/2023 07/23/2023 12:1 6 AM RESET MERCHANDISER Respiratory Rule Out - RPA 03/17/2024 03/17/2024 1 3:36 PM CDT COVID - 19 04/27/2024 04/27/2024 04/27/2024 2:19 PM RESET MERCHANDISER Respiratory Rule-Out 07/24/2024 07/24/2024 025 2:29 PM RESET MERCHANDISER COVID - 19 07/24/2024 07/24/2024 07/24/2024 2:29 PM RESET MERCHANDISER Assessment Noted Time PHQ-9 Depression Total Score: 1 03/07/20 21 10:29 AM CDT documented as of this encounter Care Teams Paver Relationship Specialty Start Date End Date Keith Craft MD PCP - General Family Medicine 01/14/19 12/26/23 Liz Capellan DO [address] [address] PCP - General Family Medicine 12/27/23 Quang Locke DO Gastroenterology 01/18/16 Bri Rollins, KTAEY [place] Design Transferrer 03/07/21 05/22/23 [place] [address] [address] 05/25/21 Bri Rollins, KATEY [place] Nurse Design Transferrer 03/07/21 05/23/23 Werner Swift MD #2 [place] [address] Consulting Physician Pulmonary Disease 01/30/22 Yasmin Restrepo MD #[address] [phone] Consulting Physician Endocrinology 07/20/24 documented as of this encounter
--- OUTSIDE RECORDS SUMMARY | 2024-08-16 19:32 | XMS_ITS | Encounter Summary ---
Author Organization [facility] Address [address] [place] [address] Phone Care Team Providers Care Pneumatic System Conveyor Operator Name Role Phone Quang Locke DO Unavailable [phone] Keith Craft MD Primary Care Provider [phone] Bri Rollins RN Unavailable Unavailable Silvio Schulte MD Unavailable [phone] Bri Rollins RN Unavailable Unavailable Werner Swift MD Unavailable Liz Capellan DO Primary Care Provider [phone] Yasmin Restrepo MD Unavailable Reason for Visit * Reason Comments Medication Refill Encounter Details Date Type Department Care Team (Late st Contact Info) Description 08/07/2021 Refill [facility] #2 [place] [address] Keith Craft MD #1 [place] [address] Medication Refill Social History Tobacco Use Types [...] COVID-19? No / Unsure 07/31/2021 3:41 PM LUMBER PRESS OPERATOR documented as of this encounter Miscellaneous [...] [facility] 05/25/21 Office Visit Marcin Anderson, PLATE CLEANER, TRAY CASTING MACHINE OPERATOR [facility] 05/05/21 Office Visit Bire Denis, NICOLE [facility] 04/14/21 Office Visit Keith Craft MD [facility] 03/23/21 Office Visit Keith Craft MD [facility] 02/07/21 Office Visit Keith Craft MD [facility] 02/03/21 Office Visit Brie Denis, NICOLE [facility] 01/12/21 Office Visit [facility]20 Office Visit Keith [facility] Showing recent visits within past 365 days and meeting all other requirements Future Appointments Date Type Provider Dept 08/14/21 Appointment Keith Craft MD [facility] Showing future appointments within next 90 days and meeting all other requirements documented in this encounter Plan of Treatment Upcoming Encounters Date Type Department Care Team (Late st Contact Info) Description 08/27/2024 1:15 PM CDT Office Visit [facility] - Endocrinology - [place] #2 [place] [address] Yasmin Restrepo MD #[address] [address] 09/02/2024 2:00 PM CDT Appointment [facility] Respiratory Therapy 1 [place] [phone] Werner Siwft MD #2 [place] [address] Discharge Disposition: Discharged to home or Selfcare 10/08/2024 1:40 PM CDT Office Visit [facility] Family Medicine [facility] #2 [place] [address] Liz Capellan, DO [address] [address] 11/16/2024 1:00 PM CDT Office Visit [facility] - Pulmonology & Sleep Medicine [facility] [address] [place] [address] Werner Swift MD [address] [place] [address] documented as of this encounter Goals Goal [...] Zones/Action plan education. I will notify my Instruments Sales Representative if my symptoms fall in the [...] 19 04/20/2022 04/20/2022 04/30/2022 12:1 8 AM LUMBER PRESS OPERATOR COVID - 19 07/18/2022 07/18/2022 07/28/2022 12:1 6 AM LUMBER PRESS OPERATOR COVID - 19 08/21/2022 08/21/2022 08/22/2022 8:31 AM CDT Respiratory Rule Out - RPA 08/21/2022 08/21/2022 0 08/22/2022 3:21 PM CDT COVID - 19 04/18/2023 04/18/2023 04/28/2023 12:1 6 AM LUMBER PRESS OPERATOR COVID - 19 07/13/2023 07/13/2023 07/23/2023 12:1 6 AM LUMBER PRESS OPERATOR Respiratory Rule Out - RPA 03/17/2024 03/17/2024 1 3:36 PM CDT COVID - 19 04/27/2024 04/27/2024 04/27/2024 2:19 PM LUMBER PRESS OPERATOR Respiratory Rule-Out 07/24/2024 07/24/2024 025 2:29 PM LUMBER PRESS OPERATOR COVID - 19 07/24/2024 07/24/2024 07/24/2024 2:29 PM LUMBER PRESS OPERATOR Assessment Noted Time PHQ-9 Depression Total Score: 1 03/07/20 21 10:29 AM CDT documented as of this encounter Care Teams Pneumatic System Conveyor Operator Relationship Specialty Start Date End Date Keith Craft MD PCP - General Family Medicine 01/14/19 12/26/23 Liz Capellan DO 2 [place] [address] PCP - General Family Medicine 12/27/23 Quang Locke DO Gastroenterology 01/18/16 Bri Rollins, RN [place] Instruments Sales Representative 03/07/21 05/22/23 [place] [address] [address] 05/25/21 Bri Rollins RN [place] Nurse Instruments Sales Representative 03/07/21 05/23/23 Werner Swift MD #2 [place] [address] Consulting Physician Pulmonary Disease 01/30/22 Yasmin Restrepo MD #[address] [address] Consulting Physician Endocrinology 07/20/24 documented as of this encounter
--- OUTSIDE RECORDS SUMMARY | 2024-08-16 19:32 | XMS_ITS | Encounter Summary ---
Author Organization [facility] Address [address] [place] [address] Phone Care Team Providers Care Barrel Painter Name Role Phone Quang Locke DO Unavailable [phone] Keith Craft MD Primary Care Provider [phone] Bri Rollins RN Unavailable Unavailable Silvio Schulte MD Unavailable [phone] Bri Rollins RN Unavailable Unavailable Werner Swift MD Unavailable Liz Capellan DO Primary Care Provider [phone] Yasmin Restrepo MD Unavailable Reason for Visit * Reason Comments Medication Refill Encounter Details Date Type Department Care Team (Late st Contact Info) Description 04/29/2020 Refill [facility] - [facility] #2 [place] [address] Keith Craft MD [address]1 [place] [address] Medication Refill Social History Tobacco Use Types [...] COVID-19? No / Unsure 04/25/2020 1:42 PM GINSENG FARMER documented as of this encounter Miscellaneous Notes [...] right upper lobe due to infectious organism [facility] - Keith Jenkins MD 2 months ago Acute non-recurrent maxillary sinusitis [facility] - Keith Jenkins MD 5 months ago Chronic prescription opiate use [facility] Keith Lemus MD 9 months ago Coronary artery disease involving lummi coronary artery of lummi heart without angina pectoris [facility] Keith Lemus MD 10 months ago COPD exacerbation (HCC) [facility] - Brie Castano, [facility] Upcoming Appointments Future Appointments In 1 month Keith Craft MD [facility] Medical [facility] PASSENGER BOOKING CLERK - Recent and Past Visits Recent Visits Date Type Provider Dept 04/25/20 Office Visit Keith Craft MD [facility] 02/02/20 Office Visit Keith Craft MD [facility] 11/02/19 Office Visit Keith Craft MD [facility] 07/27/19 Office Visit Keith Craft MD [facility] 06/10/19 Office Visit Brie Denis, N[facility] 04/20/19 Office Visit Keith Craft MD [facility] Showing recent visits within past 460 days with a meds authorizing provider and meeting all other requirements Future Appointments Date Type Provider Dept 06/07/20 Appointment Keith Craft MD [facility] Showing future appointments within next 90 days with a meds authorizing provider and meeting all other requirements ENG FARMER documented in this encounter Plan of Treatment Upcoming Encounters Date Type Department Care Team (Late st Contact Info) Description 08/27/2024 1:15 PM CDT Office Visit [facility] - Endocrinology [facility] #2 [place] [phone] Yasmin Restrepo MD #[address] [phone] 09/02/2024 2:00 PM CDT Appointment [facility] Respiratory Therapy 1 [place] [address] Werner Swift MD #2 [place] [address] Discharge Disposition: Discharged to home or Selfcare 10/08/2024 1:40 PM CDT Office Visit [facility] #2 [place] [address] Liz Capellan, DO [address] [facility] [address] [place] [address] 11/16/2024 1:00 PM CDT Office Visit [facility] - Pulmonology & Sleep Medicine - [place] [address] [place] [address] Werner Swift MD #[address] [place] [address] documented as of this encounter Visit Diagnoses Diagnosis Anxiety and depression Dysthymic disorder documented in this encounter Additional Health Concerns Infection Onset Date Last Indicated Resolved Time COVID - 19 01/25/2021 01/25/2021 01/31/2021 8:10 AM CDT Respiratory Rule Out - RPA 01/30/2021 01/30/2021 0 02/01/2021 12:45 AM CDT COVID - 19 07/23/2021 07/23/2021 07/24/2021 6:31 AM GINSENG FARMER COVID - 19 10/19/2021 10/19/2021 10/20/2021 7:45 AM CDT Respiratory Rule Out - RPA 10/19/2021 10/19/2021 0 10/20/2021 2:10 PM CDT Stenotrophomonas maltophilia Comment:Must have a follow up respiratory sample to remove isolation flag. 10/20/2021 10/20/2021 COVID - 19 04/20/2022 04/20/2022 04/30/2022 12:1 8 AM GINSENG FARMER COVID - 19 07/18/2022 07/18/2022 07/28/2022 12:1 6 AM GINSENG FARMER COVID - 19 08/21/2022 08/21/2022 08/22/2022 8:31 AM CDT Respiratory Rule Out - RPA 08/21/2022 08/21/2022 0 08/22/2022 3:21 PM CDT COVID - 19 04/18/2023 04/18/2023 04/28/2023 12:1 6 AM GINSENG FARMER COVID - 19 07/13/2023 07/13/2023 07/23/2023 12:1 6 AM GINSENG FARMER Respiratory Rule Out - RPA 03/17/2024 03/17/2024 1 3:36 PM CDT COVID - 19 04/27/2024 04/27/2024 04/27/2024 2:19 PM GINSENG FARMER Respiratory Rule-Out 07/24/2024 07/24/2024 025 2:29 PM GINSENG FARMER COVID - 19 07/24/2024 07/24/2024 07/24/2024 2:29 PM GINSENG FARMER Assessment Noted Time PHQ-9 Depression Total Score: 1 06/10/19 20 1:03 PM GINSENG FARMER documented as of this encounter Care Teams Barrel Painter Relationship Specialty Start Date End Date Keith Craft MD PCP - General Family Medicine 01/14/19 12/26/23 Liz Capellan DO [address] [address] PCP - General Family Medicine 12/27/23 Quang Locke DO Gastroenterology 01/18/16 Bri Rollins RN [place] Coil Assembler 03/07/21 05/22/23 [place] [id number] [address] 05/25/21 Bri Rollins RN [place] Nurse Coil Assembler 03/07/21 05/23/23 Werner Swift MD #2 [place] [address] Consulting Physician Pulmonary Disease 01/30/22 Yasmin Restrepo MD #[address] [address] Consulting Physician Endocrinology 07/20/24 documented as of this encounter
--- OUTSIDE RECORDS SUMMARY | 2024-08-16 19:32 | XMS_ITS | Encounter Summary ---
Author Organization [facility] Address [address] [place] [address] Phone Care Team Providers Care Estimator Binding Name Role Phone Quang Locke DO Unavailable [phone] Keith Craft MD Primary Care Provider Bri Rollins RN Unavailable Unavailable Silvio Schulte MD Unavailable [phone] Bri Rollins RN Unavailable Unavailable Werner Swift MD Unavailable Liz Capellan DO Primary Care Provider [phone] Yasmin Restrepo MD Unavailable Reason for Visit * Reason Comments Medication Refill Encounter Details Date Type Department Care Team (Late st Contact Info) Description 05/09/2020 Refill [facility] Family Medicine [facility] #2 [place] [address] Keith Craft MD #[address] [place] [address] Medication Refill Social History Tobacco Use Types [...] COVID-19? 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 [facility] Keith Lemus MD 11 months ago COPD exacerbation (HCC) [facility] Brie Vieira, NICOLE Upcoming Appointments Future Appointments In 4 weeks Keith Craft MD [facility] SALES ENABLEMENT ANALYST - Recent and Past Visits Recent Visits Date Type Provider Dept 04/25/20 Office Visit Keith Craft MD [facility] 02/02/20 Office Visit Keith Craft MD [facility] 11/02/19 Office Visit Keith Craft MD [facility] 07/27/19 Office Visit Keith Craft MD [facility] 06/10/19 Office Visit Brie Denis, [facility] 04/20/19 Office Visit Keith Craft MD [facility] Showing recent visits within past 460 days with a meds authorizing provider and meeting all other requirements Future Appointments Date Type Provider Dept 06/07/20 Appointment Keith Craft MD [facility] Showing future appointments within next 90 days with a meds authorizing provider and meeting all other requirements Passed - Last BP in normal range BP Readings from Last 1 Encounters: 04/25/20 104/62 R AUTOMATIC STOKER documented in this encounter Plan of Treatment Upcoming Encounters Date Type Department Care Team (Late st Contact Info) Description 08/27/2024 1:15 PM CDT Office Visit [facility] Medical [facility] - Endocrinology [facility] #2 [place] [address] Yasmin Restrepo MD #[address] [phone] 09/02/2024 2:00 PM CDT [facility] 1 [place] [address] Werner Swift MD #2 [place] [address] Discharge Disposition: Discharged to home or Selfcare 10/08/2024 1:40 PM CDT Office Visit [facility] - Family Medicine [facility] #2 [place] [address] Liz Capellan, DO [address] [place] [address] 11/16/2024 1:00 PM CDT Office Visit [facility] - Pulmonology & Sleep Medicine - [place] [address] [place] [address] Werner Swift MD #[address] [place] [address] documented as of this encounter Visit Diagnoses [...] - 19 07/23/2021 07/23/2021 07/24/2021 6:31 AM FIRER AUTOMATIC STOKER COVID - 19 10/19/2021 10/19/2021 10/20/2021 7:45 AM CDT Respiratory Rule Out - RPA 10/19/2021 10/19/2021 0 10/20/2021 2:10 PM CDT Stenotrophomonas maltophilia Comment:Must have a follow up respiratory sample to remove isolation flag. 10/20/2021 10/20/2021 COVID - 19 04/20/2022 04/20/2022 04/30/2022 12:1 8 AM FIRER AUTOMATIC STOKER COVID - 19 07/18/2022 07/18/2022 07/28/2022 12:1 6 AM FIRER AUTOMATIC STOKER COVID - 19 08/21/2022 08/21/2022 08/22/2022 8:31 AM CDT Respiratory Rule Out - RPA 08/21/2022 08/21/2022 0 08/22/2022 3:21 PM CDT COVID - 19 04/18/2023 04/18/2023 04/28/2023 12:1 6 AM FIRER AUTOMATIC STOKER COVID - 19 07/13/2023 07/13/2023 07/23/2023 12:1 6 AM FIRER AUTOMATIC STOKER Respiratory Rule Out - RPA 03/17/2024 03/17/2024 1 3:36 PM CDT COVID - 19 04/27/2024 04/27/2024 04/27/2024 2:19 PM FIRER AUTOMATIC STOKER Respiratory Rule-Out 07/24/2024 07/24/2024 025 2:29 PM FIRER AUTOMATIC STOKER COVID - 19 07/24/2024 07/24/2024 07/24/2024 2:29 PM FIRER AUTOMATIC STOKER Assessment Noted Time PHQ-9 Depression Total Score: 1 06/10/19 20 1:03 PM FIRER AUTOMATIC STOKER documented as of this encounter Care Teams Estimator Binding Relationship Specialty Start Date End Date Keith Craft MD PCP - General Family Medicine 01/14/19 12/26/23 Liz Capellan DO [address] [address] PCP - General Family Medicine 12/27/23 Quang Locke DO Gastroenterology 01/18/16 Bri Rollins RN [place] Clergy Member 03/07/21 05/22/23 [place] [id number] [address] 05/25/21 Bri Rollins RN [place] Nurse Clergy Member 03/07/21 05/23/23 Werner Swift MD #2 [place] [address] Consulting Physician Pulmonary Disease 01/30/22 Yasmin Restrepo MD #[address] [address] Consulting Physician Endocrinology 07/20/24 documented as of this encounter
--- OUTSIDE RECORDS SUMMARY | 2024-08-16 19:32 | XMS_ITS | Encounter Summary ---
Author Organization [facility] Address [address] [place] [address] Phone Care Team Providers Care University Registrar Name Role Phone Quang Locke DO Unavailable [phone] Keith Craft MD Primary Care Provider [phone] Bri Rollins RN Unavailable Unavailable Silvio Schulte MD Unavailable [phone] Bri Rollins RN Unavailable Unavailable Werner Swift MD Unavailable Liz Capellan DO Primary Care Provider [phone] Yasmin Restrepo MD Unavailable Reason for Visit * Reason Comments Medication Refill Encounter Details Date Type Department Care Team (Late st Contact Info) Description 10/02/2019 Refill [facility] Family [facility] #2 [place] [address] Keith Craft MD [address] [place] [address] Medication Refill Social History Tobacco Use Types [...] encounter Miscellaneous Notes * Telephone Encounter - Neomi Gabriel RN - 10/02/2019 11:18 AM CDT [...] 2 months ago Coronary artery disease involving nome coronary artery of nome heart without angina pectoris [facility] Keith Craft MD 3 months ago COPD exacerbation (HCC) [facility] Brie Denis PAC 5 months ago Type 2 diabetes mellitus with diabetic neuropathy, with long-term current use of insulin ([facility]) [facility] Keith Elizalde MD 8 months ago Type 2 diabetes mellitus with diabetic neuropathy, with long-term current use of insulin ([facility]) [facility] Keith Craft MD Upcoming Appointments Future Appointments In 1 month Keith Craft MD [facility] documented in this encounter Plan of Treatment Upcoming Encounters Date Type Department Care Team (Late st Contact Info) Description 08/27/2024 1:15 PM CDT Office Visit [facility] - Endocr[facility]ology - [place] [address] [place] [address] Yasmin Restrepo MD #[address] [address] 09/02/2024 2:00 PM CDT [facility] 1 [place] [address] Werner Swift MD #2 [place] [address] Discharge Disposition: Discharged to home or Selfcare 10/08/2024 1:40 PM CDT Office Visit [facility] - Family Medicine [facility] #2 [place] [address] Liz Capellan, DO [address] [address] 11/16/2024 1:00 PM CDT [facility] #2 [place] [address] Werner Swift MD #2 [place] [address] documented as of this encounter Visit Diagnoses Diagnosis Anxiety and depression Dysthymic disorder documented in this encounter Additional Health Concerns Infection Onset Date Last Indicated Resolved Time COVID - 19 01/25/2021 01/25/2021 01/31/2021 8:10 AM CDT Respiratory Rule Out - RPA 01/30/2021 01/30/2021 0 02/01/2021 12:45 AM CDT COVID - 19 07/23/2021 07/23/2021 07/24/2021 6:31 AM CARPENTER HELPER [employer] FLOORING COVID - 19 10/19/2021 10/19/2021 10/20/2021 7:45 AM CDT Respiratory Rule Out - RPA 10/19/2021 10/19/2021 0 10/20/2021 2:10 PM CDT Stenotrophomonas maltophilia Comment:Must have a follow up respiratory sample to remove isolation flag. 10/20/2021 10/20/2021 COVID - 19 04/20/2022 04/20/2022 04/30/2022 12:1 8 AM CARPENTER HELPER [employer]LOORING COVID - 19 07/18/2022 07/18/2022 07/28/2022 12:1 6 AM CARPENTER HELPER [employer]OR[employer] COVID - 19 08/21/2022 08/21/2022 08/22/2022 8:31 AM CDT Respiratory Rule Out - RPA 08/21/2022 08/21/2022 0 08/22/2022 3:21 PM CDT COVID - 19 04/18/2023 04/18/2023 04/28/2023 12:1 6 AM CARPENTER HELPER [employer]ORING COVID - 19 07/13/2023 07/13/2023 07/23/2023 12:1 6 AM CARPENTER HELPER [employer]OR[employer] Respiratory Rule Out - RPA 03/17/2024 03/17/2024 1 3:36 PM CDT COVID - 19 04/27/2024 04/27/2024 04/27/2024 2:19 PM CARPENTER HELPER [employer] FLOORING Respiratory Rule-Out 07/24/2024 07/24/2024 025 2:29 PM CARPENTER HELPER [employer]ORING COVID - 19 07/24/2024 07/24/2024 07/24/2024 2:29 PM CARPENTER HELPER [employer] Assessment Noted Time PHQ-9 Depression Total Score: 1 06/10/19 20 1:03 PM CARPENTER HELPER [employer]ORING documented as of this encounter Care Teams University Registrar Relationship Specialty Start Date End Date Keith Craft MD PCP - General Family Medicine 01/14/19 12/26/23 Liz Capellan DO [address] [address] PCP - General Family Medicine 12/27/23 Quang Locke DO Gastroenterology 01/18/16 Bri Rollins, KATEY [place] Teacher Home Therapy 03/07/21 05/22/23 [place] [address] [address] 05/25/21 Bri Rollins RN [place] Nurse Teacher Home Therapy 03/07/21 05/23/23 Werner Swift MD #[address] [place] [address] Consulting Physician Pulmonary Disease 01/30/22 Yasmin Restrepo MD #[address] [address] Consulting Physician Endocrinology 07/20/24 documented as of this encounter
--- OUTSIDE RECORDS SUMMARY | 2024-08-16 19:32 | XMS_ITS | Encounter Summary ---
Author Organization [facility] Address [address] [place] [address] Phone Care Team Providers Care Translator/Interpreter Name Role Phone Quang Locke DO Unavailable Keith Craft MD Primary Care Provider [phone] Bri Rollins RN Unavailable Unavailable Silvio Schulte MD Unavailable Bri Rollins RN Unavailable Unavailable Werner Swift MD Unavailable Liz Capellan DO Primary Care Provider [phone] Yasmin Restrepo MD Unavailable Reason for Visit * Reason Onset Date Comments Medication Refill 02/12/2020 norco Encounter Details Date Type Department Care Team (Late st Contact Info) Description 02/12/2020 Refill [facility] #2 [place] [address] Keith Craft MD #1 [place] [address] Medication Refill (norco) Social History Tobacco Use [...] a written script)? [facility] [address] [place], [place] 30 or 90 day supply? 30 documented in this encounter Plan of Treatment Upcoming Encounters Date Type Department Care Team (Late st Contact Info) Description 08/27/2024 1:15 PM CDT Office Visit [facility] - Endocrinology - [place] [address] [place] [address] Yasmin Restrepo MD [address] [place] [address] [address] 09/02/2024 2:00 PM CDT [facility] 1 [place] [address] Werner Swift MD #2 [place] [address] Discharge Disposition: Discharged to home or Selfcare 10/08/2024 1:40 PM CDT Office Visit [facility] - Family Medicine [facility] #2 [place] [address] Liz Capellan, DO [address] [address] 11/16/2024 1:00 PM CDT Office Visit [facility] - Pulmonology & Sleep Medicine [facility] #2 [place] [address] Werner Swift MD #2 [place] [address] documented as of this encounter Visit Diagnoses Not on filedocumented in this encounter Additional Health Concerns Infection Onset Date Last Indicated Resolved Time COVID - 19 01/25/2021 01/25/2021 01/31/2021 8:10 AM CDT Respiratory Rule Out - RPA 01/30/2021 01/30/2021 0 02/01/2021 12:45 AM CDT COVID - 19 07/23/2021 07/23/2021 07/24/2021 6:31 AM BODY ENGINEER COVID - 19 10/19/2021 10/19/2021 10/20/2021 7:45 AM CDT Respiratory Rule Out - RPA 10/19/2021 10/19/2021 0 10/20/2021 2:10 PM CDT Stenotrophomonas maltophilia Comment:Must have a follow up respiratory sample to remove isolation flag. 10/20/2021 10/20/2021 COVID - 19 04/20/2022 04/20/2022 04/30/2022 12:1 8 AM BODY ENGINEER COVID - 19 07/18/2022 07/18/2022 07/28/2022 12:1 6 AM BODY ENGINEER COVID - 19 08/21/2022 08/21/2022 08/22/2022 8:31 AM CDT Respiratory Rule Out - RPA 08/21/2022 08/21/2022 0 08/22/2022 3:21 PM CDT COVID - 19 04/18/2023 04/18/2023 04/28/2023 12:1 6 AM BODY ENGINEER COVID - 19 07/13/2023 07/13/2023 07/23/2023 12:1 6 AM BODY ENGINEER Respiratory Rule Out - RPA 03/17/2024 03/17/2024 1 3:36 PM CDT COVID - 19 04/27/2024 04/27/2024 04/27/2024 2:19 PM BODY ENGINEER Respiratory Rule-Out 07/24/2024 07/24/2024 025 2:29 PM BODY ENGINEER COVID - 19 07/24/2024 07/24/2024 07/24/2024 2:29 PM BODY ENGINEER Assessment Noted Time PHQ-9 Depression Total Score: 1 06/10/19 20 1:03 PM BODY ENGINEER documented as of this encounter Care Teams Translator/Interpreter Relationship Specialty Start Date End Date Keith Craft MD PCP - General Family Medicine 01/14/19 12/26/23 Liz Capellan DO [address] [address] PCP - General Family Medicine 12/27/23 Quang Locke DO Gastroenterology 01/18/16 Bri Rollins RN [place] Forge Heater 03/07/21 05/22/23 [place] [id number] [address] 05/25/21 Bri Rollins, RN [place] Nurse Forge Heater 03/07/21 05/23/23 Werner Swift MD #2 [place] [address] Consulting Physician Pulmonary Disease 01/30/22 Yasmin Restrepo MD #[address] [address] Consulting Physician Endocrinology 07/20/24 documented as of this encounter
--- OUTSIDE RECORDS SUMMARY | 2024-08-16 19:32 | XMS_ITS | Encounter Summary ---
Author Organization [facility] Address [address] [place] [address] Phone Care Team Providers Care Ux Researcher Name Role Phone Quang Locke DO Unavailable [phone] Keith Craft MD Primary Care Provider [phone] Bri Rollins RN Unavailable Unavailable Silvio Schulte MD Unavailable [phone] Bri Rollins RN Unavailable Unavailable Werner Swift MD Unavailable Liz Capellan DO Primary Care Provider [phone] Yasmin Restrepo MD Unavailable Reason for Visit * Reason Comments Medication Refill Encounter Details Date Type Department Care Team (Late st Contact Info) Description 09/01/2021 Refill [facility] #2 [place] [address] Keith Craft MD #1 [place] [address] Medication Refill Social History Tobacco Use Types [...] RN - 09/01/2021 12:56 PM CDT PDMP [place] 08/10/21 - Diazepam 07/31/21 Medication failed the [...] [facility] 05/25/21 Office Visit Marcin Anderson, HAIR DESIGNER, CALL BOX WIRER [facility] [place] 05/05/21 Office Visit Brie Denis, NICOLE [facility] [place] 04/14/21 Office Visit Keith Craft MD [facility] 03/23/21 Office Visit Keith Craft MD [facility] [place] 02/07/21 Office Visit Keith Craft MD [facility] [place] 02/03/21 Office Visit Brie Denis, PAC [facility] [place] 01/12/21 Office Visit Keith Craft MD [facility] 10/12/20 Office Visit Keith Craft MD [facility] Showing recent visits within past 365 days and meeting all other requirements Future Appointments Date Type Provider Dept 09/08/21 Appointment Brie Denis PAC [facility] [place] Showing future appointments within next [...] MD [facility] 05/25/21 Office Visit Marcin Anderosn APRN, [facility] [place] 05/05/21 Office Visit Brie Denis, PAC [facility] [place] 04/14/21 Office Visit Keith Craft MD [facility] [...] Date Type Provider Dept 09/08/21 Appointment Brie eDnis PAC [facility] [place] Showing future appointments within next 90 days and meeting all other requirements documented in this encounter Plan of Treatment Upcoming Encounters Date Type Department Care Team (Late st Contact Info) Description 08/27/2024 1:15 PM CDT Office Visit [facility] - Endocrinology - [place] #2 [place] [address] Yasmin Restrepo MD #[address] [address] 09/02/2024 2:00 PM CDT [facility] 1 [place] [address] Werner Swift MD #2 [place] [address] Discharge Disposition: Discharged to home or Selfcare 10/08/2024 1:40 PM CDT Office Visit [facility] Family Medicine [facility] #2 [place] [address] Liz Capellan, DO [address] [address] 11/16/2024 1:00 PM CDT [facility] #2 [place] [address] Werner Swift MD #2 [place] [address] documented as of this encounter Goals Goal [...] plan education. I will notify my Inspector Penetrant if my symptoms fall in the y [...] 19 04/20/2022 04/20/2022 04/30/2022 12:1 8 AM HEEL PAINTER COVID - 19 07/18/2022 07/18/2022 07/28/2022 12:1 6 AM HEEL PAINTER COVID - 19 08/21/2022 08/21/2022 08/22/2022 8:31 AM CDT Respiratory Rule Out - RPA 08/21/2022 08/21/2022 0 08/22/2022 3:21 PM CDT COVID - 19 04/18/2023 04/18/2023 04/28/2023 12:1 6 AM HEEL PAINTER COVID - 19 07/13/2023 07/13/2023 07/23/2023 12:1 6 AM HEEL PAINTER Respiratory Rule Out - RPA 03/17/2024 03/17/2024 1 3:36 PM CDT COVID - 19 04/27/2024 04/27/2024 04/27/2024 2:19 PM HEEL PAINTER Respiratory Rule-Out 07/24/2024 07/24/2024 025 2:29 PM HEEL PAINTER COVID - 19 07/24/2024 07/24/2024 07/24/2024 2:29 PM HEEL PAINTER Assessment Noted Time PHQ-9 Depression Total Score: 1 03/07/20 21 10:29 AM CDT documented as of this encounter Care Teams Ux Researcher Relationship Specialty Start Date End Date Keith Craft MD PCP - General Family Medicine 01/14/19 12/26/23 Liz Capellan DO [address] [address] PCP - General Family Medicine 12/27/23 Quang Locke DO Gastroenterology 01/18/16 Bri Rollins RN [place] Inspector Penetrant 03/07/21 05/22/23 [place] [id number] [address] 05/25/21 Bri Rollins RN [place] Nurse Inspector Penetrant 03/07/21 05/23/23 Werner Swift MD #2 [place] [address] Consulting Physician Pulmonary Disease 01/30/22 Yasmin Restrepo MD #[address] [address] Consulting Physician Endocrinology 07/20/24 documented as of this encounter
--- OUTSIDE RECORDS SUMMARY | 2024-08-16 19:32 | XMS_ITS | Encounter Summary ---
Author Organization [facility] Address [address] [place] [address] Phone Care Team Providers Care Vba Developer Name Role Phone Quang Locke DO Unavailable [phone] Keith Craft MD Primary Care Provider [phone] Bri Rollins RN Unavailable Unavailable Silvio Schulte MD Unavailable [phone] Bri Rollins RN Unavailable Unavailable Werner Swift MD Unavailable Liz Capellan DO Primary Care Provider [phone] Yasmin Restrepo MD Unavailable Reason for Visit * Reason Comments Medication Refill Encounter Details Date Type Department Care Team (Late st Contact Info) Description 08/17/2021 Refill [facility] Medical [address] [place] [address] Keith Craft MD #1 [place] [address] Medication Refill Social History Tobacco Use Types [...] Office Visit [facility] #2 [place] [phone] Yasmin Restrepo MD #[address] [phone] 09/02/2024 2:00 PM CDT [facility] 1 [facility] [place] [address] Werner Swift MD #2 [place] [address] Discharge Disposition: Discharged to home or Selfcare 10/08/2024 1:40 PM CDT Office Visit [facility] Medical [facility] - Family Medicine - [place] #2 [place] [address] Liz Capellan, DO 2 [facility] [place] [address] [address] 11/16/2024 1:00 PM CDT Office Visit [facility] - Pulmonology & Sleep Medicine [facility] #2 [place] [address] Werner Swift MD #2 [place] [address] documented as of this encounter Goals Goal [...] plan education. I will notify my Supervisor Of Guidance And Testing if my symptoms fall in the y [...] 19 04/20/2022 04/20/2022 04/30/2022 12:[address] JUSTICE COVID - 19 07/18/2022 07/18/2022 07/28/2022 12:[address] JUSTICE COVID - 19 08/21/2022 08/21/2022 08/22/2022 8:31 AM CDT Respiratory Rule Out - RPA 08/21/2022 08/21/2022 0 08/22/2022 3:21 PM CDT COVID - 19 04/18/2023 04/18/2023 04/28/2023 12:[address] JUSTICE COVID - 19 07/13/2023 07/13/2023 07/23/2023 12:[address] JUSTICE Respiratory Rule Out - RPA 03/17/2024 03/17/2024 1 3:36 PM CDT COVID - 19 04/27/2024 04/27/2024 04/27/2024 2:[address] JUSTICE Respiratory Rule-Out 07/24/2024 07/24/2024 025 2:[address] JUSTICE COVID - 19 07/24/2024 07/24/2024 07/24/2024 2:[address] JUSTICE Assessment Noted Time PHQ-9 Depression Total Score: 1 03/07/20 21 10:29 AM CDT documented as of this encounter Care Teams Vba Developer Relationship Specialty Start Date End Date Keith Craft MD PCP - General Family Medicine 01/14/19 12/26/23 Liz Capellan DO 2 [facility] [address] [place] [address] PCP - General Family Medicine 12/27/23 Quang Locke DO Gastroenterology 01/18/16 Bri Rollins, RN [place] Supervisor Of Guidance And Testing 03/07/21 05/22/23 [place] [address] [address] 05/25/21 Bri Rollins, RN [place] Nurse Supervisor Of Guidance And Testing 03/07/21 05/23/23 Werner Swift MD #2 [facility] [address] Consulting Physician Pulmonary Disease 01/30/22 Yasmin Restrepo MD #[address] [phone] Consulting Physician Endocrinology 07/20/24 documented as of this encounter
--- OUTSIDE RECORDS SUMMARY | 2024-08-16 19:32 | XMS_ITS | Encounter Summary ---
Author Organization [facility] Address [address] [place] [address] Phone Care Team Providers Care Wire Bender Name Role Phone Quang Locke Oswaldo PRESLEY Unavailable [phone] Silvio Schulte MD Unavailable [phone] Werner Swift MD Unavailable Liz Capellan DO Primary Care Provider [phone] Yasmin Restrepo MD Unavailable Reason for Visit * Reason Comments Medication Refill Encounter Details Date Type Department Care Team (Late st Contact Info) Description [facility] [address] [place] [phone] Keith Craft MD #1 [place] [address] Medication Refill Social History Tobacco Use Types Packs/Day Years Used Date Smoking Tobacco: Former Cigarettes 2 50 1 - 03/16/2018 Smokeless Tobacco: Never Comments:Still uses nictoine patches and gum Alcohol Use Standard Drinks/Week Comments No 0 (1 standard drink = 0.6 oz pur e alcohol) [facility] Utilities Answer Date Recorded In the past [...] you attend chur ch or faith services? Patient declined 07/23/2024 Do you belong [...] Total Score - Questions 1-9 0 06/27 [facility] - Occupational [...] any time in the past 12 m [facility], were you homeless or living in a custodial (including now)? No 07/23/2024 Education Answer Date [...] Audit-C Score Answer Date of Assessment Author -1 07/23/2024 12:19 PM HOP FARMER Mychart, System Background * Q1: How often do you have a drink containing alcohol? Answer Date of Assessment Author Patient declined 07/23/2024 12:19 PM HOP FARMER Mychart , System Background * Q2: How many drinks containing alcohol do you have on a typical day when you are drinking? Answer Date of Assessment Author Patient declined 07/23/2024 12:19 PM HOP FARMER Mychart , System Background * Q3: How often do you have six or more drinks on one occasion? Answer Date of Assessment Author Patient declined 07/23/2024 12:19 PM HOP FARMER Mychart , System Background documented as of this encounter Miscellaneous Notes * Telephone Encounter - Gloria Cornejo RN - 07/20/2024 10:55 AM CST Images from the original note were not included. Name from pharmacy: NOVOLOG FLEXPEN FLEXPEN SOLN PEN-INJ Will file in chart as: NovoLOG FlexPen 100 UNIT/ML Solution Pen-injector The original prescription was discontinued on 12/27/2023 by Liz Capellan DO FARMER documented in this encounter Plan of Treatment Upcoming Encounters Date Type Department Care Team (Late st Contact Info) Description 08/27/2024 1:15 PM CDT Office Visit [facility] - Endocrinology [facility] #2 [place] [address] Yasmin Restrepo MD #[address] [address] 09/02/2024 2:00 PM CDT [facility] 1 [place] [phone] Werner Swift MD #2 [place] [address] Discharge Disposition: Discharged to home or Selfcare 10/08/2024 1:40 PM CDT Office Visit [facility] Family [facility] #2 [facility] [address] Liz Capellan, DO 2 [address] [place] [address] 11/16/2024 1:00 PM CDT [facility] - Pulmonology & [facility] Medicine - [place] #2 [facility] [place] [address] Werner Swift MD #2 [place] [address] documented as of this encounter Goals Goal [...] Zones/Action plan education. I will notify my Flap Maker if my symptoms fall in the [...] Respiratory Rule-Out 07/24/2024 07/24/2024 025 2:29 PM HOP FARMER COVID - 19 07/24/2024 07/24/2024 07/24/2024 2:29 PM HOP FARMER Assessment Noted Time PHQ-9 Depression Total Score: 0 07/13/19 1:20 PM HOP FARMER documented as of this encounter Care Teams Wire Bender Relationship Specialty Start Date End Date Liz Capellan DO 2 [facility] [address] [place] [address] PCP - General Family Medicine 12/27/23 Quang Locke DO Gastroenterology 01/18/16 [place] [address] [address] 05/25/21 Werner Swift MD #2 [place] [address] Consulting Physician Pulmonary Disease 01/30/22 Yasmin Restrepo MD #2 [facility] [address] [place] [address] Consulting Physician Endocrinology 07/20/24 documented as of this encounter
--- OUTSIDE RECORDS SUMMARY | 2024-08-16 19:32 | XMS_ITS | Clinical Summary ---
Author Organization [facility] Address [address] [place] [address] Care Team Providers Care Jailor Name Role Phone Unavailable Primary Care Provider Unavailabl e Source Comments [facility],non-owned Affiliates and Associated Physician Practices is amultiple site organization consisting of ambulatory clinics and hospital sitesin [place] and [place]. This disclosure is being madepursuant to the Care Everywhere program and may not contain all information available regarding this patient. Last updated 18.[facility] Social History Tobacco Use Types Packs/Day Years [...] to complete this topic MENINGOCOCCAL (Group B) VACC INE SHARED DECISION-MAKING Aged Out No longer eligibl e based on patient's age to complete this topic MENINGOCOCCAL GROUPS A/C/Y/W VACCINE Aged Out No longer eligible b ased on patient's age to complete this topic Insurance Payer Benefit Plan / Group Subscriber ID Effective Dates Phone Address Type MEDICARE MANAGED CARE PLAN GENERIC MEDICARE ADV [place] COMPLETE MEDICARE ADV OUT OF NE [id number] Effective for all dates [address] [place] [address] Medicare-[place] naged Care MEDICARE WPS MEDICARE PART B [id number] 09/24/2010-Pres ent [address] [address] [place] [address] Medicare ANTHEM BLUE CROSS TRADITIONAL [id number] Effective for all dates [address] [place] [address] PPO MEDICAID - OUT OF STATE MEDICAID - [place] PUBLIC AID [id number] Effective for all dates [address] [address] [place] [address] Medicaid [facility] MEDICAID [id number] Effective for all dates ATTN CLAIMS DEPARTMENT [address] [place] [address] Medicaid Managed Care
--- OUTSIDE RECORDS SUMMARY | 2024-08-16 19:32 | XMS_ITS | Encounter Summary ---
Author Organization [facility] Address [address] [place] [address] Phone Care Team Providers Care Sap Basis Architect Name Role Phone Quang Locke DO Unavailable Keith Craft MD Primary Care Provider [phone] Bri Rollins RN Unavailable Unavailable Silvio Schulte MD Unavailable [phone] Bri Rollins RN Unavailable Unavailable Werner Swift MD Unavailable Liz Capellan DO Primary Care Provider [phone] Yasmin Restrepo MD Unavailable Reason for Visit * Reason Comments Medication Refill Encounter Details Date Type Department Care Team (Late st Contact Info) Description 05/10/2021 Refill [facility] - Family Medicine [facility] #2 [place] [address] Keith Craft MD #1 [place] [address] Medication Refill Social History Tobacco Use Types [...] COVID-19? No / Unsure 05/05/2021 3:02 PM REGIONAL EDUCATION COORDINATOR documented as of this encounter Miscellaneous Notes [...] Dept 05/05/21 Office Visit Brie Denis PAC [facility] 04/14/21 Office Visit Keith Craft MD [facility] 03/23/21 Office Visit Keith Craft MD [facility] 02/07/21 Office Visit Keith Craft MD [facility] 02/03/21 Office Visit Brie Denis, PAC [facility] 01/12/21 Office Visit Keith Craft MD [facility] 10/12/20 Office Visit Keith Craft MD [facility] 10/04/20 Office Visit [facility] MD [facility] [place] 06/07/20 Office Visit Keith Craft MD [facility] Showing recent visits within past 365 days and meeting all other requirements Future Appointments No visits were found meeting these conditions. Showing future appointments within next 90 days and meeting all other requirements ONAL EDUCATION COORDINATOR documented in this encounter Plan of Treatment Upcoming Encounters Date Type Department Care Team (Late st Contact Info) Description 08/27/2024 1:15 PM CDT Office Visit [facility] - Endocrinology - [place] #2 [place] [address] Yasmin Restrepo MD #[address] [address] 09/02/2024 2:00 PM CDT Appointment [facility] Respiratory Therapy 1 [place] [address] Werner Swift MD #2 [place] [address] Discharge Disposition: Discharged to home or Selfcare 10/08/2024 1:40 PM CDT Office Visit [facility] - Family Medicine - [place] #2 [place] [address] Liz Capellan, DO [address] [address] 11/16/2024 1:00 PM CDT Office Visit [facility] - Pulmonology & Sleep Medicine - [place] #2 [place] [address] Werner Swift MD #[address] [place] [address] documented as of this encounter Goals Goal [...] Zones/Action plan education. I will notify my Ceramic Coater if my symptoms fall in the y [...] - 19 07/23/2021 07/23/2021 07/24/2021 6:31 AM REGIONAL EDUCATION COORDINATOR COVID - 19 10/19/2021 10/19/2021 10/20/2021 7:45 AM CDT Respiratory Rule Out - RPA 10/19/2021 10/19/2021 0 10/20/2021 2:10 PM CDT Stenotrophomonas maltophilia Comment:Must have a follow up respiratory sample to remove isolation flag. 10/20/2021 10/20/2021 COVID - 19 04/20/2022 04/20/2022 04/30/2022 12:1 8 AM REGIONAL EDUCATION COORDINATOR COVID - 19 07/18/2022 07/18/2022 07/28/2022 12:1 6 AM REGIONAL EDUCATION COORDINATOR COVID - 19 08/21/2022 08/21/2022 08/22/2022 8:31 AM CDT Respiratory Rule Out - RPA 08/21/2022 08/21/2022 0 08/22/2022 3:21 PM CDT COVID - 19 04/18/2023 04/18/2023 04/28/2023 12:1 6 AM REGIONAL EDUCATION COORDINATOR COVID - 19 07/13/2023 07/13/2023 07/23/2023 12:1 6 AM REGIONAL EDUCATION COORDINATOR Respiratory Rule Out - RPA 03/17/2024 03/17/2024 1 3:36 PM CDT COVID - 19 04/27/2024 04/27/2024 04/27/2024 2:19 PM REGIONAL EDUCATION COORDINATOR Respiratory Rule-Out 07/24/2024 07/24/2024 025 2:29 PM REGIONAL EDUCATION COORDINATOR COVID - 19 07/24/2024 07/24/2024 07/24/2024 2:29 PM REGIONAL EDUCATION COORDINATOR Assessment Noted Time PHQ-9 Depression Total Score: 1 03/07/20 21 10:29 AM CDT documented as of this encounter Care Teams Sap Basis Architect Relationship Specialty Start Date End Date Keith Craft MD PCP - General Family Medicine 01/14/19 12/26/23 Liz Capellan DO 2 [facility] [address] [address] PCP - General Family Medicine 12/27/23 Quang Locke DO Gastroenterology 01/18/16 Bir Rollins, RN [place] Ceramic Coater 03/07/21 05/22/23 [place] [address] [address] 05/25/21 Bri Rollins RN [place] Nurse Ceramic Coater 03/07/21 05/23/23 Werner Swift MD #2 [place] [address] Consulting Physician Pulmonary Disease 01/30/22 Yasmin Restrepo MD #[address] [address] Consulting Physician Endocrinology 07/20/24 documented as of this encounter
--- OUTSIDE RECORDS SUMMARY | 2024-08-16 19:32 | XMS_ITS | Encounter Summary ---
Author Organization [facility] Address [address] [place] [address] Phone Care Team Providers Care Lining Folder Name Role Phone Quang Locke DO Unavailable [phone] Keith Craft MD Primary Care Provider [phone] Bri Rollins RN Unavailable Unavailable Silvio Schulte MD Unavailable [phone] Bri Rollins RN Unavailable Unavailable Werner Swift MD Unavailable Liz Capellan DO Primary Care Provider [phone] Yasmin Restrepo MD Unavailable Reason for Visit * Reason Comments Medication Refill Encounter Details Date Type Department Care Team (Late st Contact Info) Description 07/11/2020 Refill [facility] - [facility] #2 [place] [address] Keith Craft MD #1 [place] [address] Medication Refill Social History Tobacco Use Types [...] COVID-19? No / Unsure 07/02/2020 2:53 PM BRIDAL GOWN FITTER documented as of this encounter Miscellaneous Notes [...] Outpatient Visits 1 month ago Mixed hyperlipidemia [facility] - Family Medicine - Keith Jenkins MD 2 months ago Pneumonia of right upper lobe due to infectious organism [facility] Medical [facility] Family Medicine Keith Lemus MD 5 months ago Acute non-recurrent maxillary sinusitis [facility] Medical [facility] Family Medicine Keith Lemus MD 8 months ago Chronic prescription opiate use [facility] Medical [facility] Family Medicine Keith Lemus MD 11 months ago Coronary artery disease involving [place] coronary artery of [place] heart without angina pectoris [facility] Keith Lemus MD Upcoming Appointments Future Appointments In 2 weeks [facility] 2ND VACCINE [facility] - [facility] - [facility] [place] In 2 months Keith Craft MD [facility] SUBSTATION TECHNICIAN - Recent and Past Visits Recent Visits Date Type Provider Dept 06/07/20 Office Visit Keith Craft MD [facility] 04/25/20 Office Visit Keith Craft, MD [facility] 02/02/20 Office Visit Keith Craft, MD [facility] 11/02/19 Office Visit Keith Craft, MD [facility] 07/27/19 Office Visit Keith Craft MD [facility] 06/10/19 Office Visit Cira Brie Palma, [facility] [place] 04/20/19 Office Visit Keith Craft, MD [facility] Showing recent visits within past 460 days with a meds authorizing provider and meeting all other requirements Future Appointments Date Type Provider Dept 10/04/20 Appointment Keith Craft MD [facility] Showing future appointments within next 90 days with a meds authorizing provider and meeting all other requirements AL GOWN FITTER documented in this encounter Plan of Treatment Upcoming Encounters Date Type Department Care Team (Late st Contact Info) Description 08/27/2024 1:15 PM CDT Office Visit [facility] Medical [facility] - Endocrinology - [place] [address] [place] [address] Yasmin Restrepo MD #[address] [address] 09/02/2024 2:00 PM CDT Appointment [facility] Respiratory Therapy 1 [place] [phone] Werner Swift MD #2 [place] [address] Discharge Disposition: Discharged to home or Selfcare 10/08/2024 1:40 PM CDT Office Visit [facility] Medical Group - Family Medicine - [place] [address] [place] [address] Liz Capellan, DO 2 [facility]. [address] [place] [address] 11/16/2024 1:00 PM CDT Office Visit [facility] - Pulmonology & Sleep Medicine - [place] [address] [place] [phone] Werner Swift MD #2 [place] [address] documented as of this encounter Visit Diagnoses [...] - 19 07/23/2021 07/23/2021 07/24/2021 6:31 AM BRIDAL GOWN FITTER COVID - 19 10/19/2021 10/19/2021 10/20/2021 7:45 AM CDT Respiratory Rule Out - RPA 10/19/2021 10/19/2021 0 10/20/2021 2:10 PM CDT Stenotrophomonas maltophilia Comment:Must have a follow up respiratory sample to remove isolation flag. 10/20/2021 10/20/2021 COVID - 19 04/20/2022 04/20/2022 04/30/2022 12:1 8 AM BRIDAL GOWN FITTER COVID - 19 07/18/2022 07/18/2022 07/28/2022 12:1 6 AM BRIDAL GOWN FITTER COVID - 19 08/21/2022 08/21/202208/2208/22/2022 8:31 AM CDT Respiratory Rule Out - RPA 08/21/2022 08/21/2022 0 08/22/2022 3:21 PM CDT COVID - 19 04/18/2023 04/18/2023 04/28/2023 12:1 6 AM BRIDAL GOWN FITTER COVID - 19 07/13/2023 07/13/2023 07/23/2023 12:1 6 AM BRIDAL GOWN FITTER Respiratory Rule Out - RPA 03/17/2024 03/17/2024 1 3:36 PM CDT COVID - 19 04/27/2024 04/27/2024 04/27/2024 2:19 PM BRIDAL GOWN FITTER Respiratory Rule-Out 07/24/2024 07/24/2024 025 2:29 PM BRIDAL GOWN FITTER COVID - 19 07/24/2024 07/24/2024 07/24/2024 2:29 PM BRIDAL GOWN FITTER Assessment Noted Time PHQ-9 Depression Total Score: 2 06/07/19 2:34 PM BRIDAL GOWN FITTER documented as of this encounter Care Teams Lining Folder Relationship Specialty Start Date End Date Keith Craft MD PCP - General Family Medicine 01/14/19 12/26/23 Liz Capellan DO [address] [address] PCP - General Family Medicine 12/27/23 Quang Locke DO Gastroenterology 01/18/16 Bri Rollins RN [place] Residential Direct Support Professional 03/07/21 05/22/23 [place] [id number] [address] 05/25/21 Bri Rollins RN [place] Nurse Residential Direct Support Professional 03/07/21 05/23/23 Werner Swift MD [address] [place] [phone] Consulting Physician Pulmonary Disease 01/30/22 Yasmin Restrepo MD [address] [phone] Consulting Physician Endocrinology 07/20/24 documented as of this encounter
--- OUTSIDE RECORDS SUMMARY | 2024-08-16 19:32 | XMS_ITS | Encounter Summary ---
Author Organization [facility] Address [address] [place] [address] Phone Care Team Providers Care Enameler Name Role Phone Quang Locke DO Unavailable [phone] Keith Craft MD Primary Care Provider [phone] Bri Rollins RN Unavailable Unavailable Silvio Schulte MD Unavailable Bri Rollins RN Unavailable Unavailable Werner Swift MD Unavailable Liz Capellan DO Primary Care Provider [phone] Yasmin Restrepo MD Unavailable Reason for Visit * Reason Comments Medication Refill Encounter Details Date Type Department Care Team (Late st Contact Info) Description 05/01/2023 Refill [facility] #2 [place] [address] Keith Craft MD #[address] [place] [address] Medication Refill Social History Tobacco Use Types [...] Kelin Nance RN - 05/01/2023 12:38 PM PIPELINE SUPERINTENDENT PDMP 04-04-23 as 30-day supply. Fill date [...] Dept 04/12/23 Office Visit Keith Craft MD [facility] 12/10/22 Office Visit Keith Craft MD [facility] 09/10/22 Office Visit Keith Craft MD [facility] [place] 07/18/22 Office Visit Kerri Kauffman, IMITATION MARBLE MECHANIC, REBEAMER [facility] 06/07/22 Office Visit Keith Craft MD [facility] [address] [facility] [place] Showing recent visits within past 365 days and meeting all other requirements Future Appointments Date Type Provider Dept 05/02/23 Appointment Keith Craft MD [facility] [address] [facility] [place] Showing future appointments within next 90 days and meeting all other requirements LINE SUPERINTENDENT documented in this encounter Plan of Treatment Upcoming Encounters Date Type Department Care Team (Late st Contact Info) Description 08/27/2024 1:15 PM CDT Office Visit [facility] - Endocrinology - [place] #2 [place] [address] Yasmin Restrepo MD #[address] [address] 09/02/2024 2:00 PM CDT Appointment [facility] Respiratory Therapy 1 [place] [phone] Werner Swift MD #2 [place] [address] Discharge Disposition: Discharged to home or Selfcare 10/08/2024 1:40 PM CDT Office Visit [facility] - [place] #2 [place] [phone] iLz Capellan, DO [address] [address] 11/16/2024 1:00 PM CDT Office Visit [facility] - Pulmonology & Sleep Medicine [facility] [address] [place] [address] Werner Swift MD [address] [place] [address] documented as of this encounter Goals Goal [...] Zones/Action plan education. I will notify my Laundry Bag Punch Operator if my symptoms fall in the [...] 19 07/13/2023 07/13/2023 07/23/2023 12:1 6 AM PIPELINE SUPERINTENDENT Respiratory Rule Out - RPA 03/17/2024 03/17/2024 1 3:36 PM CDT COVID - 19 04/27/2024 04/27/2024 04/27/2024 2:19 PM PIPELINE SUPERINTENDENT Respiratory Rule-Out 07/24/2024 07/24/2024 025 2:29 PM PIPELINE SUPERINTENDENT COVID - 19 07/24/2024 07/24/2024 07/24/2024 2:29 PM PIPELINE SUPERINTENDENT Assessment Noted Time PHQ-9 Depression Total Score: 1 03/07/20 21 10:29 AM CDT documented as of this encounter Care Teams Enameler Relationship Specialty Start Date End Date Keith Craft MD PCP - General Family Medicine 01/14/19 12/26/23 Liz Capellan DO [address] [address] PCP - General Family Medicine 12/27/23 Quang Locke DO Gastroenterology 01/18/16 Bri Rollins RN [place] Laundry Bag Punch Operator 03/07/21 05/22/23 [place] [address] [address] 05/25/21 Bri Rollins, [place] Nurse Laundry Bag Punch Operator 03/07/21 05/23/23 Werner Swift MD #2 [place] [phone] Consulting Physician Pulmonary Disease 01/30/22 Yasmin Restrepo MD #[address] [phone] Consulting Physician Endocrinology 07/20/24 documented as of this encounter
--- OUTSIDE RECORDS SUMMARY | 2024-08-16 19:33 | XMS_ITS | Encounter Summary ---
Author Organization [facility] Address [address] [place] [address] Phone Care Team Providers Care Hand Spinner Name Role Phone Quang Locke DO Unavailable [phone] Keith Craft MD Primary Care Provider [phone] Bri Rollins RN Unavailable Unavailable Silvio Schulte MD Unavailable [phone] Bri Rollins RN Unavailable Unavailable Werner Swift MD Unavailable Liz Capellan DO Primary Care Provider Yasmin Restrepo MD Unavailable Reason for Visit * Reason Comments Medication Refill Encounter Details Date Type Department Care Team (Late st Contact Info) Description 03/27/2020 Refill [facility] - Family Medicine [facility] #2 [place] [address] Keith Craft MD #[address] [place] [address] Medication Refill Social History Tobacco Use Types [...] Last A1C 11/02/19 5.8 Follow up 06/16/20 ER ENGINEER documented in this encounter Plan of Treatment Upcoming Encounters Date Type Department Care Team (Late st Contact Info) Description 08/27/2024 1:15 PM CDT [facility] #2 [place] [phone] Yasmin Restrepo MD #[address] [phone] 09/02/2024 2:00 PM CDT [facility] 1 [place] [address] Werner Swift MD #2 [place] [address] Discharge Disposition: Discharged to home or Selfcare 10/08/2024 1:40 PM CDT [facility] #2 [place] [address] Liz Capellan, DO [address] [address] [place] [address] 11/16/2024 1:00 PM CDT Office Visit [facility] - Pulmonology & Sleep Medicine - [place] [address] [place] [address] Werner Swift MD #[address] [place] [address] documented as of this encounter Visit Diagnoses [...] - 19 07/23/2021 07/23/2021 07/24/2021 6:31 AM SERVER ENGINEER COVID - 19 10/19/2021 10/19/2021 10/20/2021 7:45 AM CDT Respiratory Rule Out - RPA 10/19/2021 10/19/2021 0 10/20/2021 2:10 PM CDT Stenotrophomonas maltophilia Comment:Must have a follow up respiratory sample to remove isolation flag. 10/20/2021 10/20/2021 COVID - 19 04/20/2022 04/20/2022 04/30/2022 12:1 8 AM SERVER ENGINEER COVID - 19 07/18/2022 07/18/2022 07/28/2022 12:1 6 AM SERVER ENGINEER COVID - 19 08/21/2022 08/21/2022 08/22/2022 8:31 AM CDT Respiratory Rule Out - RPA 08/21/2022 08/21/2022 0 08/22/2022 3:21 PM CDT COVID - 19 04/18/2023 04/18/2023 04/28/2023 12:1 6 AM SERVER ENGINEER COVID - 19 07/13/2023 07/13/2023 07/23/2023 12:1 6 AM SERVER ENGINEER Respiratory Rule Out - RPA 03/17/2024 03/17/2024 1 3:36 PM CDT COVID - 19 04/27/2024 04/27/2024 04/27/2024 2:19 PM SERVER ENGINEER Respiratory Rule-Out 07/24/2024 07/24/2024 025 2:29 PM SERVER ENGINEER COVID - 19 07/24/2024 07/24/2024 07/24/2024 2:29 PM SERVER ENGINEER Assessment Noted Time PHQ-9 Depression Total Score: 1 06/10/19 20 1:03 PM SERVER ENGINEER documented as of this encounter Care Teams Hand Spinner Relationship Specialty Start Date End Date Keith Craft MD PCP - General Family Medicine 01/14/19 12/26/23 Liz Capellan DO [address] [address] PCP - General Family Medicine 12/27/23 Quang Locke DO Gastroenterology 01/18/16 Bri Rollins RN [place] Trailer Body Assembler 03/07/21 05/22/23 [place] [address] [address] 05/25/21 Bri Rollins RN [place] Nurse Trailer Body Assembler 03/07/21 05/23/23 Werner Swift MD #2 [place] [address] Consulting Physician Pulmonary Disease 01/30/22 Yasmin Restrepo MD [address] [address] Consulting Physician Endocrinology 07/20/24 documented as of this encounter
--- OUTSIDE RECORDS SUMMARY | 2024-08-16 19:34 | XMS_ITS | CONTINUITY OF CARE DOCUMENT ---
Author Name roger nghiarusty Address Unknown Organization [facility] Address [address] [place] [address] Phone [phone] Care Team Providers Care Button Sewer Hand Name Role Phone Eris COLBERT, Silvio Unavailable Allison Robles MD Unavailable [phone] Allison Robles MD Unavailable [phone] PROBLEMS Condition Status Date Provider Notes Cerebral atherosclerosis active [facility] Jennifer t no cva ct Pulmonary nodule active [facility] [place] Hypoalbuminemia active [facility] [place] neg ua r Cough chronic- per pt active Camacho Romo RN Hypertriglyceridemia active Silvio Benitez BACK PAIN;CHRONIC;t11 compressoin active Silvio Schulte MD Tobacco abuse- hx quite 5 yrs ago completed - Silvio Schulte MD Overweight completed - Silvio Schulte MD Shortness of breath completed - Silvio Schulte MD Venous insufficiency and maet thruner active Silvio Schulte MD not fixable per shamin Edema;bilateral aggarwal thruner completed 2021 - Silvio Schulte MD Valvular heart disease completed 5 - Silvio Schulte MD Aortic atherosclerosis active Silvio Schulte MD Exposure to SARS-associated coronavirus;neg igg and had vaccine active Barb Montemayor [employer] Screening active Silvio matta aford gianfranco score, Renal disease, chronic, mild;neg us and duplex active Silvio Schulte MD neg uacr , on kerinda and sglft 2 arb Macrocytosis completed - Silvio Schulte MD Neuropathy active Silvio Schulte MD Tobacco use, quit active Silvio Schulte MD Low blood pressure completed - Silvio Schulte MD GERD active Silvio Schulte MD Pneumonia completed - Silvio Schulte MD fatty liver active Silvio Schulte MD Hiatal hernia active Silvio Schulte MD Anemia, iron deficiency active [facility] [place] CHF completed - Silvio Schulte MD CCM enroll PVC's active Silvio Schulte MD r/o Pulmonary embolism and infarction;neg ct 15 and 16 completed - Silvio Schulte MD Carotid artery disease active Silvio Schulte MD 1. Mild plaque with less than 50% stenosis of the internal carotid arteries bilaterally. Hemiblock, left anterior active Silvio easton MD CHF; completed - Parth Olivera MD Hyponatremia completed - Silvio Schulte MD S/P DC AICD - BIOTRONIK//Gen change DC ICD Biotronik 06/15/24 ( Not MRI safe/Linox S 60 Lead) active Bettye Donato PULMONARY HYPERTENSION, SECONDARY;PAP 40 completed - Silvio Schulte MD Abnormal chest xray completed - Silvio Schulte MD HYPOKALEMIA;3.3 14;will rx completed 07/30 - Silvio Schulte MD PALPITATIONS;EVENT PENDING completed 06/25 - Silvio Schulte MD VENOUS INSUFFICIENCY;NEG US 14 completed - Silvio Schulte MD ISCHEMIA;NO CAD BY CATH 14 completed 06/12 - Silvio Schulte MD Diastolic chf active Silvio Schulte MD lowes t 35, no cad by cath, on jarciance and entrsot OBESITY;HAPPY WITH OWN WEIGHT completed - Silvio Schulte MD r/o Sleep apnea;neg home study completed - Silvio Schulte MD CHF completed - Silvio Schulte MD DIVERTICULOSIS, COLON active Silvio Schulte MD PEPTIC ULCER DISEASE active Silvio Benitez VITAMIN D DEFICIENCY;ON RX PER PRIMARY active Silvio Schulte MD B12 DEFICIENCY;ON RX great;macrocytlis active Silvio Schulte MD nml folate COPD active Silvio Schulte MD HYPOTHYROIDISM; active Silvio Schulte MD TOBACCO ABUSE completed - Silvio Schulte MD Hyperlipidemia;with high crp andlow lpa active Silvio Schulte MD DIABETES MELLITUS active Silvio Schulte MD ENCOUNTERS Date Type Provider Location Encounter Diag nosis 6 - 6 In-person encounter Office Visit [facility] 5 - 5 In-person encounter Office Visit Silvio Schulte [facility] Screening 1 - 1 In-person encounter Office Visit Silvio Schulte [facility] DIABETES MELLITUSOverweight 8 - 8 In-person encounter Office Visit Silvio Schulte MD [facility] Diastolic chfRenal disease, chronic, mild;neg us and duplexTobacco abuse- hx quite 5 yrs ago 0 - 0 In-person encounter Office Visit Silvio Schulte [facility] Renal disease, chronic, mild;neg us and duplex 2 - 2 In-person encounter Office Visit Silvio Schulte MD [place] [facility] DIABETES MELLITUSDiastolic chfPneumoniaScreeningValvular heart diseaseEdema;bilateral aggarwal thrunerVenous insufficiency and maet thrunerShortness of breath 4 - 4 In-person encounter Office Visit Luis F Frausto [facility] 0 - 0 In-person encounter Office Visit Luis F Frausto [facility] Venous insufficiency and maet thruner 8 - 8 In-person encounter Office Visit Silvio Schulte [facility] HyponatremiaScreeningEdema;bilate ral aggarwal thruner 7 - 7 In-person encounter Office Visit Silvio Schulte [facility] Exposure to SARS-associated coronavirus;neg igg and had vaccine 1 - 1 In-person encounter Office Visit Silvio Schulte [facility] 9 - 9 In-person encounter Office Visit Silvio Schulte MD [facility] Exposure to SARS-associated coronavirus;neg igg and had vaccine 8 - 8 In-person encounter Office Visit Silvio Schulte MD [facility] r/o Sleep apnea;neg home studyDiastolic chfVENOUS INSUFFICIENCY;NEG US 14r/o Pulmonary embolism and infarction;neg ct 15 and 16Tobacco use, quitMacrocytosisRenal disease, chronic, mild;neg us and duplexScreeningExposure to SARS-associated coronavirus;neg igg and had vaccineAortic atherosclerosis 3 - 3 In-person encounter Office Visit Silvio Schulte [facility] 3 - 3 In-person encounter Office Visit Leighton Reza MD [facility] S/P DC AICD - BIOTRONIK//Gen change DC ICD Biotronik 06/15/24 ( Not MRI safe/Linox S 60 Lead) 6 - 2 In-person encounter Office Visit Leighton Reza [facility] 2 - 2 In-person encounter Office Visit Silvio Schulte MD [facility] Hyponatremia 8 - 8 In-person encounter Office Visit Silvio Schulte MD [facility] Low blood pressure 9 - 9 In-person encounter Office Visit Silvio Schulte MD [facility] Tobacco use, quit 5 - 5 In-person encounter Office Visit Silvio Schulte MD [facility] Abnormal chest xrayNeuropathy 7 - 7 In-person encounter Office Visit Silvio Schulte MD [place] [facility] TOBACCO ABUSECOPDGERDTobacco use, quit 2 - 9 In-person encounter Office Visit Farhad Ewing [facility] 6 - 2 In-person encounter Office Visit Farhad Ewing [facility] 7 - 7 In-person encounter Office Visit Silvio Schulte MD [facility] HYPOTHYROIDISM;r/o Sleep apnea;neg home studyHyponatremiaCHFAnemia, iron deficiencyHiatal herniafatty liver 0 - 0 In-person encounter Office Visit Parth Olivera [facility] CHF;CHF 0 - 0 In-person encounter Office Visit Silvio Schulte MD [facility] VITAMIN D DEFICIENCY;ON RX PER PRIMARYDiastolic chfS/P DC AICD - BIOTRONIK//Gen change DC ICD Biotronik 06/15/24 ( Not MRI safe/Linox S 60 Lead)PVC's 7 - 7 In-person encounter Office Visit Silvio Schulte MD [facility] Hyperlipidemia;with high crp andlow lpaDiastolic chfISCHEMIA;NO CAD BY CATH 14HYPOKALEMIA;3.3 14;will rxPULMONARY HYPERTENSION, SECONDARY;PAP 40Hemiblock, left anteriorCarotid artery diseaser/o Pulmonary embolism and infarction;neg ct 15 and 16 8 - 8 In-person encounter Office Visit Silvio Schulte MD [facility] Hyperlipidemia;with high crp andlow [id number] DEFICIENCY;ON RX great;macrocytlisVITAMIN D DEFICIENCY;ON RX PER PRIMARYOBESITY;HAPPY WITH OWN WEIGHTDiastolic chfPALPITATIONS;EVENT PENDINGAbnormal chest xrayS/P DC AICD - BIOTRONIK//Gen change DC ICD Biotronik 06/15/24 ( Not MRI safe/Linox S 60 Lead)CHF; 0 - 0 In-person encounter Office Visit Lenny Razo [facility] 6 - 6 In-person encounter Office Visit Silvio Schulte MD [place] [facility] r/o Sleep apnea;neg home studyDiastolic chfHYPOKALEMIA;3.3 14;will rxAbnormal chest xray 0 - 0 In-person encounter Office Visit Silvio Schulte MD [place] [facility] Hyperlipidemia;with high crp andlow lpaHYPOTHYROIDISM;B12 DEFICIENCY;ON RX great;macrocytlisr/o Sleep apnea;neg home studyPALPITATIONS;EVENT PENDING 3 - 3 In-person encounter Office Visit Silvio Schulte MD [facility] In Patient 6 - 6 In-person encounter Office Visit Silvio Schulte MD [facility] DIABETES MELLITUSHyperlipidemia;with high crp andlow lpaHYPOTHYROIDISM;COPDB12 DEFICIENCY;ON [...] MD blood pressure, diastolic 72 mm[Hg] Jaja ylvandana [facility] blood pressure, systolic 98 mm[Hg] [facility], oximetry 96 % Danna [facility] pulse rate 68 /min Danna [facility] weight E&M 130 [lb_av] Danna [facility] height E&M 62 [in_i] Danna [facility] Body Mass Index (Ratio) 24.32 kg/m2 Amaris Sullivan blood pressure, diastolic 64 mm[Hg] An anaya Mcdonough blood pressure, systolic 103 mm[Hg] Any a Ceasar pulse rate 82 /min Emily Ceasar oxygen saturation, oximetry 92 % Emilyvandana Mcdonough weight E&M 133 [lb_av] Meily Ceasar blood pressure, cuff size large An anaya Mcdonough height E&M 62 [in_i] Emily Ceasar blood pressure, diastolic 38 mm[Hg] Annie nkLog blood pressure, systolic 76 mm[Hg] Tiana og Body Mass Index (Ratio) 25.60 kg/m2 Yudelka Schulte MD pulse rate 71 /min Emily Ceasar blood pressure, diastolic 38 mm[Hg] An anaya Mcdonough blood pressure, systolic 76 mm[Hg] Any a eCasar weight E&M 140 [lb_av] Emily Ceasar oxygen saturation, oximetry 90 % Emily Ceasar respiratory rate E&M 17 /min Emily Gale llia blood pressure, cuff size large An anaya Mcdonough height E&M 62 [in_i] Emily Ceasar Body Mass Index (Ratio) 25.79 kg/m2 Yudelka skye Schulte MD blood pressure, diastolic 67 mm[Hg] Te patricia [place] blood pressure, systolic 105 mm[Hg] Ter i [place] oxygen saturation, oximetry 92 % [facility] [place] respiratory rate E&M 15 /min Hoa Barry [facility] pulse rate 72 /min [facility] [place] weight E&M 141 [lb_av] [place] [place] Body Mass Index (Ratio) 26.34 kg/m2 Yudelka cheung Eris COLBERT blood pressure, diastolic 70 mm[Hg] Shirley whelan [place] blood pressure, systolic 109 mm[Hg] Hermes jayna [place] oxygen saturation, oximetry 92 % Eunice [place] pulse rate 100 /min Eunice benitez weight E&M 144 [lb_av] Eunice [facility] danay respiratory rate E&M 16 /min Karissa cm [place] blood pressure, cuff size large Shirley whelan [place] height E&M 62 [in_i] [facility]ice [facility] benitez Body Mass Index (Ratio) 25.93 [...] Mass Index (Ratio) 26.70 kg/m2 Barb Montemayor [employer] blood pressure, cuff size regular Sa ra [...] Coats Body Mass Index (Ratio) 26.34 kg/m2 [facility] ta Demecs RN blood pressure, cuff [...] blood pressure, diastolic 70 mm[Hg] Kr isty [place] blood pressure, systolic 130 mm[Hg] Kri sty [place] oxygen saturation, oximetry 95 % Brittany [place] pulse rate 67 /min Brittany Ramakrishna respiratory rate E&M 18 /min Brittany weight E&M 147.0 [lb_av] Brittany height E&M 62 [in_i] [facility] Body Mass Index (Ratio) 26.15 kg/m2 Yudelka Schulte MD temperature E&M 98.4 [degF] [facility] temperature site temporal [facility] blood pressure, diastolic 65 mm[Hg] To [facility] blood pressure, systolic 109 mm[Hg] [facility] respiratory rate E&M 16 /min [facility] pulse rate 79 /min [facility] oxygen saturation, oximetry 96 % [facility] weight E&M 143 [lb_av] [facility] height E&M 62 [in_i] [facility] Body Mass Index (Ratio) 26.52 kg/m2 Yudelka Schulte MD oxygen saturation, oximetry 97 % [facility] pulse rate 86 /min [facility], diastolic 60 mm[Hg] astity Trip blood pressure, systolic 106 mm[Hg] Denise stity [facility] respiratory rate E&M 16 /min Chastit y Trip weight E&M 145 [lb_av] [facility] height E&M 62 [in_i] [facility] Body Mass Index (Ratio) 26.70 kg/m2 [...] er height E&M 62 [in_i] Jackie [facility] Body Mass Index (Ratio) 27.43 kg/m2 Raheem Reza MD blood pressure, cuff size regular Ke rri [facility]ilrutland [facility] medical centermanny blood pressure, diastolic 70 mm[Hg] Ke rri Sampsonsaskiatana blood pressure, systolic 110 mm[Hg] Theodore gomez Chari oxygen saturation, oximetry 96 % Jackie Cordovahoda respiratory rate E&M 18 /min Jackie Gottlieb lucilahortenciatana pulse rate 88 /min Jackie [facility] weight E&M 150 [lb_av] Jackie [facility] height E&M 62 [in_i] Jackie Mae er [...] blood pressure, diastolic 80 mm[Hg] Waqar santanaty [place] blood pressure, systolic 110 mm[Hg] Alexandre Loby pulse rate 92 /min Brittany Ramakrishna oxygen saturation, oximetry 96 % Brittany [place] weight E&M 139 [lb_av] Brittany [place] respiratory rate E&M 17 /min Brittany Ramakrishna height E&M 62 [in_i] [facility] Body [facility] Index (Ratio) 26.70 kg/m2 Yudelka Schulte MD oxygen saturation, oximetry 94 % [facility], diastolic 70 mm[Hg] astity Trip blood pressure, systolic 108 mm[Hg] [facility] stity Trip respiratory rate E&M 16 /min [facility] Trip pulse rate 95 /min [facility] Trip weight E&M 146 [lb_av] [facility] Hospital[facility] Trip height E&M 62 [in_i] [facility] Hospital[facility] Trip Body Mass Index (Ratio) 25.79 [...] Demecs RN blood pressure, systolic 110 mm[Hg] [facility] sta Demecs RN oxygen saturation, oximetry 92 % Minerambika Mathewecs RN respiratory rate E&M 18 /min Minerambika Mathewecs RN weight E&M 142.6 [lb_av] Miner Demecs RN pulse rate 88 /min Miner Demecs R N blood pressure, diastolic 70 mm[Hg] juancarlos Quincyecs RN blood pressure, systolic 124 mm[Hg] [facility] ambika Demecs RN oxygen saturation, oximetry 96 % Madelineambika Mathewecs RN respiratory rate E&M 18 /min Minerambika Mathewecs RN pulse rate 75 /min Madeline [...] maxwell height E&M 62 [in_i] Jackie [facility] Body Mass Index (Ratio) 24.87 kg/m2 Yasemin [...] Taylor Beyer blood pressure, diastolic 70 mm[Hg] Nm patti Kell blood pressure, systolic 128 mm[Hg] [...] Demecs RN blood pressure, systolic 122 mm[Hg] [facility] sta Demecs RN pulse rate 97 /min Miner Demecs R N oxygen saturation, oximetry 95 % Miner Demecs RN respiratory rate E&M 18 /min Miner Demecs RN Body Mass Index (Ratio) 25.82 kg/m2 [facility] Center[facility]a ta Demecs RN weight E&M 141.2 [lb_av] Miner Demecs RN blood pressure, diastolic 56 mm[Hg] juancarlos Demecs RN blood pressure, systolic 102 mm[Hg] [facility] sta Demecs RN pulse rate 80 /min Madeline Demecs R N oxygen saturation, oximetry 96 % Madeline Demecs RN respiratory rate E&M 20 /min Miner Demecs RN Body Mass Index (Ratio) 26.34 kg/m2 [facility] ta [facility] weight E&M 144 [lb_av] Miner Demecs R N blood pressure, diastolic 62 [...] Mtz Body Mass Index (Ratio) 25.24 kg/m2 [facility]george pulse rate 81 /min Angelica oxygen saturation, oximetry 93 % Angelica blood pressure, diastolic 60 mm[Hg] As [facility] blood pressure, systolic 110 mm[Hg] [facility] respiratory rate E&M 16 /min Angelica weight E&M 138 [lb_av] [facility] Body Mass Index (Ratio) 25.33 kg/m2 Mimi [...] respiratory rate E&M 16 /min Camacho Mauricio [facility] RN Body Mass Index (Ratio) 26.18 kg/m2 Camacho Jenkinss RN weight E&M 142.6 [lb_av] Camacho Jenkinss RN Body Mass Index (Ratio) 26.62 kg/m2 Prasanna da Ventimiglia [facility] weight E&M 145 [lb_av] Yesika Ventimig mary jo [facility] Body Mass Index (Ratio) 26.80 kg/m2 [...] 06/13 Absolute Neutrophil count 7392 cells/mcL LinkLogic [id number] Normal 06/13 mean platelet volume 9.7 fL [...] ratio, urine <13 mg/g LinkLogic 1- Normal [place] [address] 08/01 creatinine, random, urine 90.9 mg/dL LinkLogic , [place] [address] 08/01 microalbumin, random, urine <12.0 mg/L LinkLogic [place] [address] 08/01 Estimated Glomerular Filtration Rate (calc) 53 mL/min/{1.73 _m2} [place] [address] 08/01 cholesterol, non-HDL, total 48 mg/dL [place] [address] 08/01 lipoprotein, beta, serum, point, quantitative, calculated 32 mg/dL LinkLogic <=129 Normal C, [place] [address] 08/01 HDL CHOLESTEROL 44 mg/dL LinkLogic >=40 Normal C, [place] [address] 08/01 triglyceride, serum, fasting 81 mg/dL LinkLogic <=149 Normal C, [place] [address] 08/01 cholesterol, serum 92 mg/dL LinkLogic 30-199 Normal C, [place] [address] 08/01 NT-pro BNP 400 LinkLogic <=300 High C, [place] [address] 08/01 aspartate aminotransferase (SGOT), serum 29 1/L LinkLogic 10-45 Normal C, [place] [address] 08/01 alanine aminotransferase (SGPT), serum 15 1/L LinkLogic 7-45 Normal C, [place] [address] 08/01 Alkaline phosphatase 102 LinkLogic 40-130 Normal C, [place] [address] 08/01 albumin, serum 3.2 g/dL LinkLogic 3.5-5.0 Low C, [place] [address] 08/01 protein, total, serum 6.7 g/dL [facility]Logic 6.5-8.5 Normal C, [place] [address] 08/01 bilirubin, serum, total 0.3 mg/dL LinkLogic 0.1-1.2 Normal C, [place] [address] 08/01 calcium, serum 9.0 mg/dL LinkLogic 8.5-10.3 Normal C, [place] [address] 08/01 blood glucose, random 112 mg/dL LinkLogic 70-199 Normal C, [place] [address] 08 creatine, serum 1.10 mg/dL LinkLogic 0.60-1.10 Normal C, [place] [address] 308 urea nitrogen, blood 10 mg/dL LinkLogic 6-25 Normal C, [place] [address] 08 anion gap, serum 10 mmol/L LinkLogic 2-15 Normal C, [place] [address] 3/08 carbon dioxide, venous blood 24 mmol/L LinkLogic 22-32 Normal C, [place] [address] 08 chloride, serum 102 mmol/L LinkLogic 97-110 Normal C, [place] [address] 308 potassium, serum 4.4 MMOL/L LinkLogic 3.3-4.9 Normal C, [place] [address] 08 sodium, serum 136 mmol/L LinkLogic 135-145 Normal C, [place] [address] 08 thyroid stimulating hormone, serum 0.94 MCIUNIT/ML LinkLogic 0.30-4.20 Normal C, [place] [address] 308 Absolute Basophils 0.0 K/CUMM LinkLogic 0.0-0.1 Normal C, [place] [address] 3/08 Absolute Monocytes 0.6 K/CUMM LinkLogic 0.2-0.8 Normal C, [place] [address] 08 Absolute Lymphocytes 1.7 K/CUMM LinkLogic 0.8-3.3 Normal C, [place] [address] 08 Absolute Neutrophils 5.0 K/CUMM LinkLogic 1.5-6.5 Normal C, [place] [address] 08 nucleated red blood cells as percent [...] Rate (calc) 68 mL/min/{1.73 _m2} LinkLogic C, [place] [address] 07/16 calcium, serum 9.5 mg/dL LinkLogic 8.5-10.3 Normal , [place] [address] 07/16 blood glucose, random 119 mg/dL LinkLogic 70-199 Normal , [place] [address] 07/16 creatine, serum 0.90 mg/dL LinkLogic 0.60-1.10 Normal C, [place] [address] 07/16 urea nitrogen, blood 17 mg/dL LinkLogic 8-25 Normal C, [place] [address] 07/16 anion gap, serum 12 mmol/L LinkLogic 2-15 Normal C, [place] [address] 07/16 carbon dioxide, venous blood 24 mmol/L LinkLogic 22-32 Normal C, [place] [address] 07/16 chloride, serum 102 mmol/L LinkLogic 97-110 Normal C, [place] [address] 07/16 potassium, serum 4.4 MMOL/L LinkLogic 3.3-4.9 Normal C, [place] [address] 07/16 sodium, serum 138 mmol/L LinkLogic 135-145 Normal C, [place] [address] 07/08 microalbumin/creat inine ratio, urine <22 mg/g LinkLogic 1-29 Normal C, [place] [address] 07/08 creatinine, random, urine 54.6 mg/dL LinkLogic C, [place] [address] 07/08 microalbumin, random, urine <12.0 mg/L LinkLogic C, [place] [address] 07/08 cholesterol, non-HDL, total 59 mg/dL LinkLogic C, [place] [address] 07/08 HDL CHOLESTEROL 60 mg/dL LinkLogic >=40 Normal C, [place] [address] 07/08 triglyceride, serum, fasting 206 mg/dL LinkLogic <=149 High C, [place] [address] 07/08 cholesterol, serum 119 mg/dL LinkLogic 30-199 Normal C, [place] [address] 07/08 calcium, serum 9.1 mg/dL LinkLogic 8.5-10.3 Normal C, [place] [address] 07/08 blood glucose, random 120 mg/dL LinkLogic 70-199 Normal C, [place] [address] 07/08 creatine, serum 1.00 mg/dL LinkLogic 0.60-1.10 Normal C, [place] [address] 07/08 urea nitrogen, blood 20 mg/dL LinkLogic 8-25 Normal C, [place] [address] 07/08 anion gap, serum 15 mmol/L LinkLogic 2-15 Normal C, [place] [address] 07/08 carbon dioxide, venous blood 22 mmol/L LinkLogic 22-32 Normal C, [place] [address] 07/08 chloride, serum 99 mmol/L LinkLogic 97-110 Normal C, [place] [address] 07/08 potassium, serum 4.1 MMOL/L LinkLogic 3.3-4.9 Normal C, [place] [address] 07/08 sodium, serum 136 mmol/L LinkLogic 135-145 Normal C, [place] [address] 07/08 thyroid stimulating hormone, serum 0.48 MCIUNIT/ML LinkLogic 0.30-4.20 Normal C, [place] [address] 10/13 NT-pro BNP 246 LinkLogic <=300 Normal C, [place] [address] 07/24 ferritin, serum 92 ng/mL LinkLogic 15-150 [...] iron binding capacity, unsaturated 199 ug/dL LinkLogic 305-185 5919/1 2/28 iron binding capacity, total 270 ug/dL LinkLogic 103-100 6901/1 2/28 free thyroxine index 2.1 LinkLogic 1.2-4.9 [...] 0-149 07/24 cholesterol, serum 146 mg/dL [facility] 162-049 1711/1 2/28 alanine aminotransferase (SGPT), serum 7 1/L [...] 3.5-5.2 07/24 sodium, serum 142 mmol/L LinkLogic 427-181 3234/1 2/28 urea nitrogen/creatinin e ratio, serum 17 [...] Estab. 07/24 platelet count 259 X10E3/UL LinkLogic 354-600 2671/1 2/28 red blood cell distribution width 11.3 [...] 3.5-5.2 11/23 sodium, serum 138 mmol/L LinkLogic 145-463 3357/0 6/30 urea nitrogen/creatinin e ratio, serum 21 [...] iron binding capacity, unsaturated 268 ug/dL LinkLogic 227-586 9795/0 5/19 iron binding capacity, total 328 ug/dL [facility] 412-623 9691/0 5/19 free thyroxine index 1.8 LinkLogic 1.2-4.9 [...] 0-149 10/12 cholesterol, serum 140 mg/dL [facility]Log[facility] [phone]/0 5/19 calcium, serum 9.8 mg/dL [facility] 8.7-10.3 10/12 carbon dioxide, venous blood 24 mmol/L [facility] 20-29 10/12 chloride, serum 101 mmol/L [facility] 96-106 10/12 potassium, serum 5.5 mmol/L LinkLogic 3.5-5.2 High 10/12 sodium, serum 141 mmol/L Link[facility] 244-843 7123/0 5/19 urea nitrogen/creatinin e ratio, serum 18 [...] Estab. 10/12 platelet count 302 X10E3/UL LinkLog[facility] [phone]/0 5/19 red blood cell distribution width 12.0 % LinkLogic 11.7-15.4 10/12 mean corpuscular hemoglobin concentration, RBC 34.2 G/DL [facility]Log[facility] 31.5-35.7 10/12 mean corpuscular hemoglobin, [facility].0 [facility]0 High 10/12 mean corpuscular volume, RBC 103 fL LinkLogic 79-97 High 10/12 hematocrit, blood 40.4 % [facility] 34.0-46.6 10/12 hemoglobin, blood 13.8 g/dL [facility] 11.1-15.9 10/12 erythrocyte (RBC) count 3.94 X10E6/UL [facility] 3.77-5.28 10/12 leukocyte count, blood 7.4 X10E3/UL [facility] 3.4-10.8 10/07 pro brain natriuretic peptide 64 pg/mL LinkLogic 0-301 10/07 ferritin, serum 188 ng[facility] High 10/07 iron saturation percent, serum 24 % [facility] 15-55 10/07 iron, serum 71 ug/dL [facility] 27-139 10/07 iron binding capacity, unsaturated 222 ug/dL [facility] 371-271 0458/0 5/14 iron binding capacity, total 293 ug/dL [facility] [phone]/0 5/14 hemoglobin A1C, blood, as % of total hemoglobin 5.8 % [facility] 4.8-5.6 High 10/07 lipoprotein, beta, serum, point, quantitative, calculated 45 mg/dL [facility] 0-99 10/07 very low density lipoproteins 24 mg/dL [facility] 5-40 10/07 HDL cholesterol, serum 69 mg/dL [facility] >39 10/07 triglyceride, serum, random 119 mg/dL [facility]Log[facility] 0-149 10/07 cholesterol, serum 138 mg/dL [facility] [phone]/0 5/14 basophil count, absolute 0.0 [facility]07 Eosinophil Absolute Count 0.1 X10E3/UL [facility] 10/07 monocyte count, blood, automated 0.6 X10E3/UL [facility] 0[facility]1-0.9 10/07 lymphocyte count, blood, automated 1.7 [...] Estab. 10/07 platelet count 347 X10E3/UL [facility] 249-410 8029/0 5/14 red blood cell distribution width 12.8 [...] High 10/07 sodium, serum 143 mmol/L [facility] [phone]/0 5/14 urea nitrogen/creatinin e ratio, serum 16 [...] Estab. 06/19 platelet count 214 X10E3/UL [facility] 124-343 9677/0 1/24 red blood cell distribution width 12.9 [...] iron binding capacity, unsaturated 176 ug/dL [facility] [phone]/1 1/03 iron binding capacity, total 299 ug/dL [facility] [phone]/0 9/19 pro brain natriuretic peptide 196 pg/mL [facility] 0-301 02/12 B-12, serum >2000 pg/mL [facility] 232-1245 High 02/12 hemoglobin A1C, blood, as % of total hemoglobin 6.1 % [facility] 4.8-5.6 High 02/12 iron saturation percent, serum 37 % [facility] 15-55 02/12 iron, serum 110 ug/dL [facility] 27-139 02/12 iron binding capacity, unsaturated 185 ug/dL [facility] 413-949 0350/0 9/19 iron binding capacity, total 295 ug/dL [facility] 238-354 0994/0 9/19 free thyroxine index 2.5 [facility] 1.2-4.9 [...] 0-149 02/12 cholesterol, serum 132 mg/dL [facility] 194-063 8455/0 9/19 calcium, serum 10.3 mg/dL [facility] 8.7-10.3 02/12 carbon dioxide, venous blood 20 mmol/L [facility] 20-29 02/12 chloride, serum 102 mmol/L [facility] 96-106 02/12 potassium, serum 4.8 mmol/L [facility] 3.5-5.2 02/12 sodium, serum 141 mmol/L [facility] 735-278 3610/0 9/19 urea nitrogen/creatinin e ratio, serum 14 [...] 3.5-5.2 07/16 sodium, serum 136 mmol/L [facility] 630-209 2125/0 2/20 urea nitrogen/creatinin e ratio, serum 10 [...] 09/29 rapid plasma reagin antibody, serum NON-REACTIVE [facility] NON-REACTIV E 08/01 pro brain natriuretic [...] 23.0 08/01 blood glucose, random 81.0 mg/dL [facility] 74.0 - 99.0 08/01 red blood cell distribution width, size density 44.7 fL [facility] 08/01 immature granulocytes, percentage of total cells, blood 0.2 % [facility] 08/01 nucleated red blood cells as percent of blood leukocytes 0.0 % [facility] 08/01 red blood cell (erythrocyte) count, per high power field 0.0 10*3/UL [facility] 08/01 eosinophils as percent of blood leukocytes 0.3 % [facility] 08/01 neutrophils as percent of blood leukocytes 77.0 % [facility] 08/01 Absolute Neutrophils 11.1 CELLS/UL [facility] 1.5 - 7.8 High 08/01 basophils as percent of blood leukocytes 0.6 % [facility] 08/01 Absolute Basophils 0.1 CELLS/UL [facility] 0.0 - 0.2 08/01 monocytes as percent of blood leukocytes 7.1 % [facility] 08/01 Absolute Monocytes 1.0 CELLS/UL [facility] 0.2 - 1.0 High 08/01 lymphocytes as percent of blood leukocytes 14.8 % [facility] 08/01 Absolute Lymphocytes 2.1 CELLS/UL [facility] 0.9 - 3.9 08/01 mean platelet volume 10.8 (?) [facility] 08/01 platelet count 322.0 THOUSAND/UL [facility] 100.0 - 400.0 08/01 mean corpuscular hemoglobin concentration, RBC 34.0 G/DL [facility] 31.0 - 38.0 08/01 mean corpuscular hemoglobin, RBC 35.3 pg [facility] 25.0 - 35.0 High 08/01 mean corpuscular volume, RBC 103.6 fL [facility] 75.0 - 100.0 High 08/01 hematocrit, blood 37.3 % [facility] 35.0 - 55.0 08/01 hemoglobin, blood 12.7 g/dL [facility] 11.5 - 16.5 08/01 erythrocyte count, whole [...] (low-density lipoprotein/high-d ensity lipoprotein) ratio 0.8 RATIO [facility] - 06/03 lipoprotein, beta, serum, point, quantitative, [...] as percent of blood leukocytes 0.0 % [facility] - 11/20 red blood cell (erythrocyte) count, per high power field 0.0 10*3/UL [facility] - 11/20 eosinophils as percent of blood leukocytes 2.1 % [facility] - 11/20 neutrophils as percent of blood leukocytes 72.2 % [facility] - 11/20 Absolute Neutrophils 6.3 CELLS/UL [facility] 1.5 - 7.8 11/20 basophils as percent of blood leukocytes 0.6 % [facility] - 11/20 Absolute Basophils 0.1 CELLS/UL [facility] 0.0 - 0.2 11/20 monocytes as percent of blood leukocytes 7.1 % [facility] Absolute Monocytes 0.6 CELLS/UL [facility] 0.2 - 1.0 11/20 lymphocytes as percent of blood leukocytes 17.7 % [facility] 11/20 Absolute Lymphocytes 1.5 CELLS/UL [facility] 0.9 - 3.9 11/20 mean platelet volume 10.6 (?) [facility] - 11/20 platelet count 287.0 THOUSAND/UL [facility] [...] 10/04 carbon dioxide, venous blood 27.0 mmol/L [facility] 23.0 - 31.0 10/04 albumin, serum 4.3 g/dL [facility] 3.5 - 5.2 10/04 calcium, serum 10.1 mg/dL [facility] 8.6 - 10.2 10/04 aspartate aminotransferase (SGOT), serum 13.0 1/L [facility] 0.0 - 32.0 10/04 alkaline phosphatase, serum 64.0 1/L [facility] 40[facility]0 - 130.0 10/04 alanine aminotransferase (SGPT), serum 8.0 1/L [facility] 0.0 - 33.0 10/04 protein, total, serum 6.8 g/dL [facility] 6.6 - 8.7 10/04 bilirubin, serum, total 0.2 mg/dL [facility] 0.0 - 1.2 10/04 urea nitrogen, blood 15.0 mg/dL [facility] 8.0 - 23.0 10/04 blood glucose, random 73.0 mg/dL [facility] 74.0 - 99.0 Low 10/04 red blood cell distribution width, size density 56.9 fL [facility] 10/04 immature granulocytes, percentage of total cells, blood 0.6 % [facility] 10/04 nucleated red blood cells as percent of blood leukocytes 0.0 % [facility] 10/04 red blood cell (erythrocyte) count, per high power field 0.0 10*3/UL [facility] 10/04 eosinophils as percent of blood leukocytes 2.0 % [facility] 10/04 neutrophils as percent of blood leukocytes 63.9 % [facility] 10/04 Absolute Neutrophils 4.4 [facility] - 7[facility]8 10/04 basophils as percent of blood leukocytes 1.0 % [facility] 10/04 Absolute Basophils 0.1 CELLS/UL [facility] 0.0 - 0.2 10/04 monocytes as percent of blood leukocytes 6.7 % [facility] 10/04 Absolute Monocytes 0.5 CELLS/UL [facility] 0.2 - 1.0 10/04 lymphocytes as percent of blood leukocytes 25.8 % [facility] - 10/04 Absolute Lymphocytes 1.8 CELLS/UL [facility] 0.9 - 3.9 10/04 mean platelet volume 11.2 (?) [facility] - 10/04 platelet count 357.0 THOUSAND/UL [facility] 100.0 - 400.0 10/04 mean corpuscular hemoglobin concentration, RBC 32.1 G/DL [facility] 31.0 - 38.0 10/04 mean corpuscular hemoglobin, RBC 35.3 pg [facility] 25.0 - 35.0 High 10/04 mean corpuscular volume, RBC 110.2 fL [facility] 75.0 - 100.0 High 10/04 hematocrit, blood 39.0 % [facility] 35.0 - 55.0 10/04 hemoglobin, blood 12.5 g/dL [facility] 11.5 - 16.5 10/04 erythrocyte count, whole blood 3.5 MILLION/UL [facility] 3.5 - 5.5 10/04 hemoglobin A1C, blood, as % of total hemoglobin 6.5 % [facility] 4.0 - 6.0 High 10/04 reticulocyte count, absolute 0.064 10*6 CELLS/UL [facility] reticulocyte count, blood, uncorrected 1.80 % [facility] 0.50 - 2.00 08/12 platelet count 288 10*3/mm3 [facility] 08/12 hematocrit, blood 38.3 % [facility] 08/12 international normalized ratio (INR) 1.0 [facility] 08/12 alanine aminotransferase (SGPT), serum 31 1/L [facility] 08/12 aspartate aminotransferase (SGOT), serum 16 1/L [facility] 08/12 creatinine, serum 0.81 mg/dL [facility] 08/12 potassium, serum 4.1 mmol/L [facility] 08/12 sodium, serum 128 mmol/L [facility] 07/30 calcium, serum 8.9 mg/dL [facility] 8.6-10.0 [...] 06/11 Absolute Neutrophil count 5589 cells/mcL [facility] 6363-5254 Normal 06/11 platelet count 245 THOUSAND/UL [facility] [...] 06/30 alanine aminotransferase (SGPT), serum 9 1/L [facility] 06/30 aspartate aminotransferase (SGOT), serum 14 1/L [facility] 06/30 creatinine, serum 0.79 mg/dL [facility] 06/30 potassium, serum 3.9 mmol/L [facility] 06/30 sodium, serum 134 mmol/L [facility] 06/08 TOTAL NON-HDL-C (LDL VLDL) 54 [facility] 06/08 cholesterol/HDL ratio, serum 1.9 [facility] 06/08 cholesterol, serum 117 mg/dL [facility] 06/08 triglyceride, target level 150 mg/dL [facility] 06/08 HDL cholesterol, serum, target level 40 mg/dL [facility] 06/08 triglyceride, serum, fasting 77 mg/dL [facility] Normal 06/08 HDL cholesterol, serum 63 mg/dL [facility] Normal 06/08 LDL cholesterol, serum 38 mg/dL [facility] Normal 06/08 LDL target level 100 mg/dL [facility] 06/08 cholesterol, target level 200 mg/dL [facility] 07/12 triglyceride, serum, fasting 118 mg/dL [facility] 07/12 HDL cholesterol, serum 47 mg/dL [facility] 07/12 LDL cholesterol, serum 89 mg/dL [facility] 07/12 cholesterol, serum 160 mg/dL [facility] HISTORY OF MEDICATION USE Medication Status Instructions [...] as needed 09/15 - 08/25 Diana Bartholomew [employer] #36, 33 days supply, Prescribed by TANIYA [...] once a day 07/22 - 10/11 Silvio cShulte MD BASAGLAR KWIKPEN 100 UNIT/ML SUBCUTANEOUS SOLUTION [...] 50 units four times daily - 12/11 Rahda Ochoa diazepam 10 mg tablet active 1 [...] no [facility] chewing [facility] Never smoker Hoa Galloway social history E&M Children: 3 c kelsy shea currently smokes every day. 100 pack year Smoking History: Amarjit shea is a former smoker. Silvio Schulte MD social history reviewed E&M revi ewed - no changes required Silvio Schulte MD physical exercise, frequency, days per week 3 /wk Eunice Schulz passive cigarette sm benjie exposure no Eunice Schulz smoking, year quit 2015 Eunice [place] smoking, date started 1963 [place] francisco Schulz smoking history, tot al pack/year 51 Eunice Schulz smoking history, tot al pack/day 0.5 Eunice [place] cigarette use yes Eunice Griffith nd smoking status Former smoker Eunice [facility] rajat social history reviewed E&M revi ewed [...] use no [facility] sm benjie exposure no [facility] smoking, year quit 2016 [facility], [facility], tot [facility] pack/year [facility], tot al pack/day 0.5 [facility] Trip cigarette use yes [facility] Trip smoking status Former smoker [facility] Hog ue social history reviewed E&M ilya [...] exercise, frequency, days per week 3 /wk Jackei Chari alcohol use no Jackie Aquino maxweller [...] /wk Brittany Ramakrishna alcohol use no Brittany [place] drug use none Brittany [place] passive cigarette sm benjie exposure no Brittany Ramakrishna smoking, year quit 2015 Brittanycaitlyn Wu sby smoking, date started 1964 Brittany [place] smoking history, tot al pack/year 51 Brittany Ramakrishna smoking history, tot al pack/day 0.5 Brittany Ramakrishna cigarette use yes Brittany [place] smoking status Former smoker Brittany [place] social history E&M Children: 3 c kelsy [...] pack/day 0.5 Jackie Marcelino cigarette use yes Jacike fajardo smoking status Former smoker Jackie rob [...] Ewing MD smoking, date started 1964 Farhad Ewing MD smoking history, tot al pack/year 52 Farhad Ewing MD smoking history, tot al pack/day 0.5 Farhad Ewing MD cigarette use yes Farhad Ewing [...] frequency, days per week 3 /wk Ciera Castorena alcohol use no Ciera Castorena drug use none Ciera Castorena smoking/tobacco cess ation, patient education and counseling yes Ciera Castorena passive cigarette sm benjie exposure no Ciera Castorena smoking, date started 1963 Jossue Castorena smoking history, tot al pack/year 52 Ciera Castorena smoking history, tot al pack/day 0.5 Ciera Castorena cigarette use yes Ciera Castorena smoking status Current every day smoker Mariel Castorena smoking history, tot al pack/year 51 [...] patient education and counseling yes Yesika Ventimiglia [employer] physical exercise, frequency, days per week 3 /wk Yesika Ventimiglia [employer] smoking history, tot al pack/day 1 Yesika Ventimiglia [facility] social history reviewed E&M reviewed Yesika Sandrashirleymiguel [facility] smoking history, tot al pack/year 48 Yesika Sandrashirleymiguel [facility] smoking/tobacco cess ation, patient education and [...] MD FAMILY HISTORY Family Member Condition Father CA male <55 Mother CA female <65 Aunt Family History of Ce rvical Cancer First Female Cousin Family History of Br east Cancer Maternal Grandmother Family History of C oronary Artery Disease: Full Sister Family History Coron mira Heart Disease female < 65: Mother Family History Coron mira Heart Disease female < 65: INSURANCE PROVIDERS Payer name Policy type / Coverage type Toy red democrat ID [employer] MEDICAID (2) Medicaid [id number] [employer] COMPLETE (2) Medicare [id number] 1 ADVANCE DIRECTIVES Name Date POWER OF HERBICIDE SPRAYER LIVING WILL ON FILE TREATMENT PLAN Date Name Performer [id number],C,68 Silvio palacios MD [id number],B, h sd infusion up to date on colon Silvio Schulte MD [id number],B, 1 . Mild plaque with less than 50% stenosis of the internal carotid arteries bilaterally. Silvio Schulte MD [id number],B, r esloved with magn eisum Silvio Schulte MD [id number],S, n eg dave n o cad by cath n eg ihs, neg ct p;e 15 and 16, neg uacr, neg aaa Silvio Schulte MD [id number],W, Silvio ross MD [id number],B, p ro 246, lvdep 18 on clath, ef 60 r a pressuer 14 Silvio Schulte MD [id number],S, n o significant gsv reflux. only left ssv reflux. small central veins on ivus bilaterally in the legs. conservative medical therapy or compression stockings reccommended Silvio Schulte MD [id number],S, Silvio ross MD [id number],B, Silvio Schulte MD [id number],B, H er updated medication list for this problem includes: Rosuvastatin 20 Mg Tablet (Rosuvastatin) ..... Take 1 tablet by mouth once a day Vascepa 1 Gram Capsule (Icosapent ethyl) ..... Take 2 capsules by mouth twice daily C HOL: 119 (05/07/2022) HDL: 64 (05/23/2021) CHOL (goal): 200 (06/08/2013) LDL (goal): 100 (06/08/2013) HDL (goal): 40 (06/08/2013) TG (goal): 150 (06/08/2013) Silvio Schulte MD [id number],S, s et a t 50, no rv pacing Silvio Schulte MD [id number],S, 6 0 Silvio Schulte MD [id number],C,60 Silvio palacios MD [id number],S, Silvioskye Baca vandana COLBERT [id number],S, Silvio ross MD [id number],S, n eg dave n o cad by cath n eg ihs, neg ct p;e 15 and 16, neg uacr, neg aaa Silvio Schulte MD [id number],C, H er updated medication list for this [...] four times a day Silvio Schulte MD [id number],W,set a t 50, n o rv pacing Silvio Schulte MD [id number],S, 1 31 Silvio Schulte MD [id number],C,p ro 246, lvdep 18 on clath, ef 60 r a pressuer 14 Silvio Schulte MD [id number],B, 6 .3 Silvio Schulte MD [id number],S,59 Silvio palacios MD [id number],B, Silvio ross MD [id number],S, n o significant gsv reflux. only left ssv reflux. small central veins on ivus bilaterally in the legs. conservative medical therapy or compression stockings reccommended Silvio Schulte MD [id number],S, T he patient is between 55-77 years [...] undergo diagnosis and treatment. Silvio Schulte MD [id number],S, Luis F snow MD [id number],S, Luis F snow MD [id number],C,n o significant gsv reflux. only left ssv reflux. small central veins on ivus bilaterally in the legs. conservative medical therapy or compression stockings reccommended Luis F Frausto MD [id number],C,L OW BP reduce entresto to resume lasix. Luis F Frausto MD [id number],C,Lasix 20 mg d aily resume Luis F Frausto MD [id number],C, H aving swelling in the ankles and legs bilaterally. Worse in hernan afternoon. I discussed with her using compression stockingsWill obtain venous duplex of the LEs with reflux. If normal, GSV ablation in future. If not, iliac vein stengin Luis F Frausto MD [id number],C,ra pressue 14 on limted rch Silvio Schulte MD [id number],C,n ml por ef 60 la pressue is 14 on limted rhc, lvedp 18 on old cath Silvio Schulte MD [id number],C,b akash anders, neg toniig vd in 14, ra is 14 Silvio Schulte MD [id number],S, Silvio ross MD [id number],S, Silvio ross MD [id number],B, Silvio ross MD [id number],S, T he patient is between 55-77 years [...] undergo diagnosis and treatment. Silvio Schulte MD [id number],S,p ro 285 nml tsh n o cad by cath n o venous insfuff, neg ihs, neg ct p;e 15 and 16, neg uacr, neg aaa Silvio Schulte MD [id number],S,no venoud ins uff Silvio Schulte MD [id number],S, Silvio ross MD [id number],S, Silvio ross MD [id number],S, T he patient is between 55-77 years [...] undergo diagnosis and treatment. Silvio Schulte MD [id number],S,p ro 285 nml tsh n o cad by cath n o venous insfuff, neg ihs, neg ct p;e 15 and 16, neg uacr, neg aaa Silvio Schulte MD [id number],S, Silvio ross MD [id number],S,nml pro ef 60 Silvio Schulte MD [id number],B,hsd infusion up to date on colon Silvio Schulte MD [id number],C,6.3 Silvio izquierdo MD [id number],S, H er updated medication list for this problem includes: Rosuvastatin 5 Mg Tablet (Rosuvastatin) ..... Take 1 tablet by mouth once a day Barb Montemayor NP [id number],S, H er updated medication list for this problem includes: Levothyroxine 25 Mcg Tablet (Levothyroxine) ..... Take 1 tablet by mouth once a day Barb Montemayor NP [id number],S, H er updated medication list for this [...] mouth twice a day Barb Montemayor NP [id number],S, Barb Sim Alba P [id number],S, Barb Sim N P [id number],S, Barbsolo Alba P [id number],S, Barb Russellyan N P [id number],S, Barb Russellscottvandana N P [id number],S, H er updated medication list for this [...] four times a day Barb Montemayor NP [id number],S, Barb Sim Alba P [id number],S, Barb Alba P [id number],C,mild pr and t r Silvio Schulte MD [id number],C,nml pro and e f Jluis Schulte MD [...] Schulte MD Cardiology Silvio Schulte MD Cardiology Silvoi Schulte MD :echo nml pro 400, lvedp [...] aaa Diana Bartholomew NP Cardiology:6.6 6 .6 [facility] Peori[facility]ack Bartholomew NP Cardiology:ef 60 pro 400, lvepd 18 [facility] Bartholomew NP need nod fu ct:pro 400, lvvedp 1 8, ef 60, ra 14 Silvio Schulte MD need nod fu ct:6.6 Silvio Schulte MD need nod fu ct:53 Silvio Schulte MD Cardiology Silvio Schulte MD Cardiology Silvio Schulte MD Cardiology:b12 ok on rx and rpr neg Silvio Schulte MD Cardiology: h sd infusion up to date on colon Silvio Schulte MD Cardiology: n eg dave n o cad by cath n eg ihs, neg ct p;e 15 and 16, neg uacr, neg aaa Silvoi Schulte MD Cardiology: p ro 246, lvdep [...] 1 tablet by mouth once a day Babr Montemayor NP Cardiology: H er updated medication [...] Schulte MD Cardiology:follow with CT Yesika Floresmimiguel [facility] Cardiology:check lip id panel H er updated medication list for this problem includes: Crestor 5 Mg Oral Tablet (Rosuvastatin calcium) ..... One tab. daily Yesika [facility] Cardiology:Will repe at Hgb A1C H er [...] (Aspirin) ..... One tab by mouth daily [facility] Cardiology:s/p ablat ion. cont corlanor H er updated medication list for this problem includes: Aspirin Adult Low Dose 81 Mg Oral Tablet Delayed Release (Aspirin) ..... One tab by mouth daily [facility] Cardiology:Will have pt follow up with GI specialist [facility] Cardiology:appears c ompensated. Will check pBNP H er updated medication list for this problem includes: Entresto 24-26 Mg Oral Tablet (Sacubitril-valsartan) ..... Twice a day Aspirin Adult Low Dose 81 Mg Oral Tablet Delayed Release (Aspirin) ..... One tab by mouth daily [facility] Cardiology:ICD in pl [place]. EF of 35% per last echo H er updated medication list for this problem includes: Entresto 24-26 Mg Oral Tablet (Sacubitril-valsartan) ..... Twice a day Aspirin Adult Low Dose 81 Mg Oral Tablet Delayed Release (Aspirin) ..... One tab by mouth daily [facility] Electrophysiology Ho spital Follow up : E [...] up :start ABLATION w/ Anesthesia (*) at [facility] with CARTO and anesthesia O rders: E KG (CPT-96647) 9 9215 HIGH Complex (CPT-36242) A BLATION w/ Anesthesia (*) at [facility] with CARTO and anesthesia Her updated medication list for this problem includes: Aspirin Adult Low Dose 81 Mg Oral Tablet Delayed Release (Aspirin) ..... One tab by mouth daily & #13;Orders: E KG (CPT-58115) 9 9215 HIGH Complex (CPT-32779) A BLATION w/ Anesthesia (*) C T Cardiac with contrast (Pre-Ablation) (CPT-28006) Leighton Reza MD Electrophysiology Fo llow up : H er updated medication list for this problem includes: Entresto 24-26 Mg Oral Tablet (Sacubitril-valsartan) ..... Twice a day Aspirin Adult Low Dose 81 Mg Oral Tablet Delayed Release (Aspirin) ..... One tab by mouth daily Leighton Reza MD Electrophysiology Fo llow up :start ABLATION w/ Anesthesia (*) at [facility] with CARTO and anesthesia O rders: E KG (CPT-22538) 9 9215 HIGH Complex (CPT-66237) A BLATION w/ Anesthesia (*) at [facility] with CARTO and anesthesia Her updated [...] diagnosis and treatment. Silvio Schulte MD Cardiology: f uy ct neg Silvio [...] 132.0 (04/03/2016) HDL: 59.0 (04/03/2016) T.0 (04/03/2016) Sivlio Schulte MD Cardiology: 1 . Mild plaque [...] ..... One tab. daily Silvio Schulte MD [facility] Follow up :CHOL: 132.0 (04/03/2016) HDL: 59.0 (04/03/2016) T.0 (04/03/2016) C HOL (goal): 200 (06/08/2013) LDL (goal): 100 (06/08/2013) HDL (goal): 40 (06/08/2013) TG (goal): 150 (06/08/2013) Silvio Schulte MD [facility] Follow up :519, will stop lasix due to lwo bp at home, will try corloaonre Silvio Schulte MD [facility] Follow up Rhodes ron Schulte MD [facility] Follow up : R TRICIA PARIKH s [...] date. O rders: 9 9213 LTD. Complex (CPT-59122) Farhad Ewing MD Hem/Onc:Patient stat es that she has quit smoking as of her last hospitialization. She was congratulated her smoking cessation and encouraged to adhere to this. O rders: 9 9244 MOD C omplex (CPT-77721) Farhad Ewing MD Hem/Onc:The patient RLL infiltrate is likely residual pneumonia which is slowly resolving. She has no concerning symptoms of malignancy. I will repeat a CT chest in three months to document clearance of the residual RLL PNA. If persistent, she will need referral to pulmonary for further evaluation. She was agreeable to this plan. Orders: S NOMED-CT: [id number] Current Medications Documented (SCT-[id number]) C T, Chest (CPT-38660) 9 9244 MOD C omplex (CPT-66048) Farhad Ewing MD Cardiology:many sx will charles [...] like toprol b ack on coreg Silvio Schulte MD Cardiology: R TRICIA PARIKH s et [...] the medication list: Theochron 300 Mg Oral [id number] (Theophylline) ..... 1 twice daily Her updated [...] LYTES Silvio Schulte MD Cardiology:[place]ILL SEE EPS, [address] P ER DAY Silvio Schulte MD Cardiology:RARELY [...] E lectronically Signed By: Bull Alvarez MD., [facility] [place], [facility] [place] _ 2 27-Jul-2014 14:57:11 -0500 P atient Name: JULIETTE LUBIN RN: [id number] Krysta jaimes Date: Silvio Schulte MD f/u: O rders: C omplete Echo (CPT-90915) Silvio Schulte MD f/u: O rders: C omplete Echo (CPT-74725) Silvio Schulte MD HFU,DEVICE CHECK: H er [...] O rders: B ASIC METABOLIC PANEL W/EGFR (24633) Silvio Schulte MD echo pdingin: O rders: B ASIC METABOLIC PANEL W/EGFR (36546) Silvio Schulte MD echo pdingin: H er [...] daily Orders: B ASIC METABOLIC PANEL W/EGFR (13574) Silvio Schulte MD echo pdingin: H er [...] daily Orders: B ASIC METABOLIC PANEL W/EGFR (99808) Silvio Schulte MD echo pdingin: H er updated medication list for this problem includes: Crestor 20 Mg Tabs (Rosuvastatin calcium) ..... One tab. daily Silvio Schulte MD echo pdingin: H er updated medication list for this problem includes: Synthroid 50 Mcg Tabs (Levothyroxine sodium) ..... 1 tab daily Silvio Schulte MD echo pdingin Silvio Schulte MD echo pdingin: O rders: B ASIC METABOLIC PANEL W/EGFR (01489) T HYROID PANEL WITH TSH, 3RD GENERATION (7444) Silvio Schulte MD echo pdingin: O rders: B ASIC METABOLIC PANEL W/EGFR (74275) Silvio Schulte MD echo pdingin: H er [...] 1 tab twice daily Orders: E KG (CPT-04074) B ASIC METABOLIC PANEL W/EGFR (40215) T HYROID PANEL WITH TSH, 3RD GENERATION [...] ..... 2 times daily [place] 200 Mg [id number] (Theophylline) ..... Twice daily BP today: 121/54 [...] f/u : O rders: C omplete Echo (CPT-25521) M UGA (LVEF) (CPT-87559) Silvio Schulte MD cath f/u Silvio Schulte MD cath f/u : O rders: C omplete Echo (CPT-14139) M UGA (LVEF) (CPT-44297) M obile Cardiac Tele (CPT-07560) Silvio Schulte MD cath f/u : H [...] INR: 1.0 (06/11/2013) Orders: C omplete Echo (CPT-64081) M UGA (LVEF) (CPT-76723) M obile Cardiac Tele (CPT-80743) Silvio Schulte MD cath f/u : O rders: C omplete Echo (CPT-01618) M UGA (LVEF) (CPT-83411) M obile Cardiac Tele (CPT-25752) Silvio Schulte MD cath f/u : O rders: C omplete Echo (CPT-67361) M UGA (LVEF) (CPT-63281) M obile Cardiac Tele (CPT-95848) Silvio Schulte MD cath f/u : O rders: C omplete Echo (CPT-55066) M UGA (LVEF) (CPT-43495) M obile Cardiac Tele (CPT-17182) Silvio Schulte MD cath f/u : H [...] (06/11/2013) INR: 1.0 (06/11/2013) Orders: E KG (CPT-83908) C omplete Echo (CPT-93410) M UGA (LVEF) (CPT-86523) M obile Cardiac Tele (CPT-78410) Silvio Schulte MD cath f/u Silvio Schulte MD new pt Silvio Schulte MD new pt Silvio Schulte MD new pt Silvio Schulte MD new pt : O rders: L ipid Strip (CPT-39833) C omplete Echo (CPT-03200) V enous Doppler Bilateral LE - Standing (CPT-88299) B TYPE NATRIURETIC PEPTIDE (BNP) (99820) U RINALYSIS, COMPLETE W/REFLEX TO CULTURE (3020) Silvio Schulte MD new pt : O rders: L ipid Strip (CPT-46163) C omplete Echo (CPT-79135) V enous Doppler Bilateral LE - Standing (CPT-70487) B TYPE NATRIURETIC PEPTIDE (BNP) (43065) U RINALYSIS, COMPLETE W/REFLEX TO CULTURE (3020) Silvio Schulte MD new pt : H er updated medication list for this problem includes: Crestor 20 Mg Tabs (Rosuvastatin calcium) ..... One tab. daily Orders: F ull PFT (*) L ipid Strip (CPT-18354) Complete Echo (CPT-89604) V enous Doppler Bilateral LE - Standing (CPT-90083) B TYPE NATRIURETIC PEPTIDE (BNP) (24087) U RINALYSIS, COMPLETE W/REFLEX TO CULTURE (3020) [...] F ull PFT (*) L ipid Strip (CPT-81221) B TYPE NATRIURETIC PEPTIDE (BNP) (03035) U RINALYSIS, COMPLETE W/REFLEX TO CULTURE (8420) Silvio Schulte MD new pt : H er updated medication list for this problem includes: Synthroid 88 Mcg Tabs (Levothyroxine sodium) ..... 1 daily Orders: F ull PFT (*) L ipid Strip (CPT-60395) Silvio Schulte MD Date Name PARTIAL THROMBOPLAST [...] Arterial Duplex Bi-L ower EX DLCO - 29709 FRC - 96799 FVC - [address] Complete Echo HEMOGLOBIN [...] Echo Holter Monitor 24 Hr DLCO - 72036 FRC - 37496 FVC - 71780 BASIC METABOLIC PANE L W/EGFR Low Dose Lung CT Holter Monitor 24 Hr DLCO - 27552 FRC - 98017 FVC - 37833 Renal Artery Duplex Holter Monitor [address] D[address] LIPID PANEL Complete Echo TSH, free T4, total T3 BASIC METABOLIC PANE L W/EGFR Covid Antibody Igg PROBNP, N TERMINAL IRON AND TOTAL IRON BINDING CAPACITY FERRITIN CBC (INCLUDES DIFF/P LT) DLCO - 14797 FRC - 82853 FVC - 52994 COMPREHENSIVE METABO LIC PANEL, W/EGFR IRON AND TOTAL IRON BINDING CAPACITY FERRITIN CBC (INCLUDES DIFF/P LT) Vitamin D, 25-Hydrox y DLCO - 15600 FRC - 05776 FVC - 81458 PROBNP, N TERMINAL HEMOGLOBIN A1c LIPID PANEL [...] Echo Low Dose Lung CT DLCO - 96771 FRC - 75790 FVC - 19083 VITAMIN B12 THYROID PANEL WITH T SH, 3RD GENERATION PROBNP, N TERMINAL HEMOGLOBIN A1c Holter Monitor [address] Dose [address] CT Complete Echo DLCO - 76229 FRC - 12357 FVC - 26002 Vitamin D, 25-Hydrox y LIPID PANEL IRON AND TOTAL IRON BINDING CAPACITY BASIC METABOLIC PANE L W/EGFR CT, Coronary Calcium Score PROBNP, N TERMINAL CT, Coronary Calcium Score BASIC METABOLIC PANE L W/EGFR URINALYSIS, RANDOM, MICROALB/CREATININE DLCO - 05907 FRC - 13696 FVC - 80769 Complete Echo Low Dose Lung CT PROBNP, N TERMINAL COMPREHENSIVE METABO LIC PANEL W/EGFR DLCO - 32816 FRC - 98647 FVC - 26255 RPR (MONITOR) W/REFL TITER Complete Echo THYROID PANEL WITH T SH, 3RD GENERATION IRON AND TOTAL IRON BINDING CAPACITY FERRITIN COMPREHENSIVE METABO LIC PANEL W/EGFR VITAMIN D, 25-HYDROX Y, LC/MS/MS COMPREHENSIVE METABO LIC PANEL W/EGFR IRON AND TOTAL IRON BINDING CAPACITY CBC (INCLUDES DIFF/P LT) FERRITIN HEMOGLOBIN A1c PROBNP, N TERMINAL Complete Echo DLCO - 53590 FRC - 81416 FVC - 53558 CT Chest - low dose for lung cancer screening CT, Chest Sleep Study Home LIPID PANEL VITAMIN D, 25-HYDROX Y, LC/MS/MS THYROID PANEL WITH T SH, 3RD GENERATION DLCO - 80193 FRC - 08699 FVC - 48630 Complete Echo COMPREHENSIVE METABO LIC PANEL W/EGFR PROBNP, N TERMINAL IRON AND TOTAL IRON BINDING CAPACITY FERRITIN CBC (INCLUDES DIFF/P LT) THYROID PANEL WITH T SH, 3RD GENERATION PROBNP, N TERMINAL COMPREHENSIVE METABO LIC PANEL W/EGFR HEMOGLOBIN A1c VITAMIN B12 RETICULOCYTE COUNT IRON AND TOTAL IRON BINDING CAPACITY FOLATE, SERUM FERRITIN CBC (INCLUDES DIFF/P LT) DLCO - 86486 FRC - 70631 FVC - 82840 Complete Echo Carotid Duplex Bilat eral Complete [...] d FVC / MVV with bronchodilator - 20469 Silvio Schulte MD completed BLOOD COUNT HEMOGLOBIN Silvio Schulte MD completed FRC - 02287 Silvio Schulte MD complet ed SpO2 w/o 6min walk/titration Silvio Schulte MD completed DLCO - 42364 Silvio Schulte MD comple akhil ICM Interrogation, Remote (Prof) Silvio Schulte MD INTERROGATION EVAL REMOTE </30 D CV MNTR SYS completed AICD Interrogation, Remote (Tech) Silvio Schulte MD INTERROGATION REMOTE </90 D CONDENSER TUBE TENDER REVIEW completed AICD Interrogation, Remote (Prof) Silvio [...] Silvio Schulte MD INTERROGATION REMOTE </90 D CONDENSER TUBE TENDER REVIEW completed AICD Interrogation, Remote (Prof) Silvio [...] Silvio Schulte MD INTERROGATION REMOTE </90 D CONDENSER TUBE TENDER REVIEW completed AICD Interrogation, Remote (Prof) Silvio [...] Silvio Schulte MD INTERROGATION REMOTE </90 D CONDENSER TUBE TENDER REVIEW completed AICD Interrogation, Remote (Prof) Silvio Schulte MD INTERROGATION EVAL REMOTE </90 D 1/2/> LD CVDFB completed Counseling LDCT Silvio Schulte MD aprol com pleted ICM Interrogation, Remote (Prof) Silvio Schulte MD INTERROGATION EVAL REMOTE </30 D CV MNTR SYS completed ICM Interrogation, Remote (Tech) Silvio Schulte MD INTERROGATION EVAL REMOTE </30 D TECH REVIEW completed FVC / MVV with bronchodilator - 60552 Silvio Schulte MD completed BLOOD COUNT HEMOGLOBIN Silvio Schulte MD completed FRC - 86144 Silvio Schulte MD complet ed SpO2 w/o 6min walk/titration Silvio Schulte MD completed DLCO - 97511 Silvio Schulte MD comple akhil Protime Silvio Schulte MD complete d Counseling LDCT Silvio Schulte MD [email or web address] com pleted Pacemaker Interrogation, Remote (Tech) Silvio Schulte MD INTERROGATION REMOTE </90 D CONDENSER TUBE TENDER REVIEW completed ICM Interrogation, Remote (Prof) Silvio Schulte MD INTERROGATION EVAL REMOTE </30 D CV MNTR SYS completed ICM Interrogation, Remote (Tech) Silvio Schulte MD INTERROGATION EVAL REMOTE </30 D TECH REVIEW completed ICM Interrogation, Remote (Prof) Silvio Schulte MD INTERROGATION EVAL REMOTE </30 D CV MNTR SYS completed AICD Interrogation, Remote (Tech) Silvio Schulte MD INTERROGATION REMOTE </90 D CONDENSER TUBE TENDER REVIEW completed AICD Interrogation, Remote (Prof) Silvio [...] (Tech) Silvio Serota INTERROGATION REMOTE </90 D CONDENSER TUBE TENDER REVIEW completed AICD Interrogation, Remote (Prof) Silvio [...] Silvio Serotvandana COLBERT INTERROGATION REMOTE </90 D CONDENSER TUBE TENDER REVIEW completed AICD Interrogation, Remote (Prof) Silvio [...] (Tech) Silvio Serota INTERROGATION REMOTE </90 D CONDENSER TUBE TENDER REVIEW completed AICD Interrogation, Remote (Prof) Silvio [...] REMOTE </30 D TECH REVIEW completed SNOMED-CT: [id number] Current Medications Documented Silvio Schulte MD completed [...] REMOTE </30 D TECH REVIEW completed SNOMED-CT: [id number] Current Medications Documented Farhad Ewing MD completed ICM Interrogation, Remote (Prof) Silvio Serotvandana COLBERT INTERROGATION EVAL REMOTE </30 D CV MNTR SYS completed AICD Interrogation, Remote (Tech) Silvio Serota INTERROGATION REMOTE </90 D CONDENSER TUBE TENDER REVIEW completed AICD Interrogation, Remote (Prof) Silvio Serotvandana COLBERT INTERROGATION EVAL REMOTE </90 D 1/2/> LD CVDFB completed SNOMED-CT: [id number] Current Medications Documented Farhad Ewing MD completed BLOOD COUNT HEMOGLOBIN Silvio Schulte MD completed FVC - 03465 Silvio Schulte MD complet ed FRC - 17124 Silvio Schulte MD complet ed DLCO - 51784 Silvio Schulte MD comple akhil SNOMED-CT: [id number] Current Medications Documented Silvio Schulte MD completed [...] Silvio Schulte MD INTERROGATION REMOTE </90 D CONDENSER TUBE TENDER REVIEW completed AICD Interrogation, Remote (Prof) Silvio Schulte MD INTERROGATION EVAL REMOTE </90 D 1/2/> LD CVDFB completed ICM Interrogation, Remote (Prof) Silvio Schulte MD INTERROGATION EVAL REMOTE </30 D CV MNTR SYS completed ICM Interrogation, Remote (Tech) Silvio Schulte MD INTERROGATION EVAL REMOTE </30 D TECH REVIEW completed SNOMED-CT: [id number] Physical Exam, Performed: Pulse Exam of Foot Parth Olivera MD completed EKG Parth mclaughlin MD completed SNOMED-CT: [id number] Current Medications Documented Parth Olivera MD completed ICM Interrogation, Remote (Prof) Silvio Schulte MD INTERROGATION EVAL REMOTE </30 D CV MNTR SYS completed ICM Interrogation, Remote (Tech) Silvio Serotvandana COLBERT INTERROGATION EVAL REMOTE </30 D TECH REVIEW completed SNOMED-CT: [id number] Current Medications Documented Silvio Schulte MD completed ICM Interrogation, Remote (Prof) Silvio Serotvandana COLBERT INTERROGATION EVAL REMOTE </30 D CV MNTR SYS completed AICD Interrogation, Remote (Tech) Silvio Serota INTERROGATION REMOTE </90 D CONDENSER TUBE TENDER REVIEW completed AICD Interrogation, Remote (Prof) Silvio [...] Silvio Serotvandana COLBERT INTERROGATION REMOTE </90 D CONDENSER TUBE TENDER REVIEW completed AICD Interrogation, Remote (Prof) Silvio Serotvandana COLBERT INTERROGATION EVAL REMOTE </90 D 1/2/> LD CVDFB completed ICM Interrogation, Remote (Prof) Silvio Serota INTERROGATION EVAL REMOTE </30 D CV MNTR SYS completed AICD Interrogation, Remote (Tech) Silvio Serota INTERROGATION REMOTE </90 D CONDENSER TUBE TENDER REVIEW completed AICD Interrogation, Remote (Prof) Silvio Serota INTERROGATION EVAL REMOTE </90 D 1/2/> LD CVDFB completed ICM Interrogation, Remote (Prof) Silvio Serota INTERROGATION EVAL REMOTE </30 D CV MNTR SYS completed ICM Interrogation, Remote (Tech) Silvio Schulte MD INTERROGATION EVAL REMOTE </30 D TECH REVIEW completed BLOOD COUNT HEMOGLOBIN Silvio Schulte MD completed FVC - 11796 Silvio Schulte MD complet ed FRC - 24971 Silvio Schulte MD complet ed DLCO - 49705 Silvio Schulte MD comple akhil SNOMED-CT: [id number] Smoking Cessation Counseling Silvio Schulte MD completed SNOMED-CT: 94153256 Physical Exam, Performed: Pulse Exam of Foot Silvio Schulte MD completed EKG Silvio Schulte MD complete d SNOMED-CT: [id number] Current Medications Documented Silvio Schulte MD completed [...] Silvio Schulte MD INTERROGATION REMOTE </90 D CONDENSER TUBE TENDER REVIEW completed AICD Interrogation, Remote (Prof) Silvio [...] (Tech) Silvio Serota INTERROGATION REMOTE </90 D CONDENSER TUBE TENDER REVIEW completed AICD Interrogation, Remote (Prof) Silvio [...] (Tech) Silvio Serota INTERROGATION REMOTE </90 D CONDENSER TUBE TENDER REVIEW completed AICD Interrogation, Remote (Prof) Silvio [...] (Tech) Silvio Serota INTERROGATION REMOTE </90 D CONDENSER TUBE TENDER REVIEW completed AICD Interrogation, Remote (Prof) Silvio [...] Silvio Schulte MD complete d DLCO - 05931 Silvio Schulte MD comple akhil FR - 11901 Silvio Schulte MD complet ed [facility] - 33545 Silvio Scuhlte MD complet ed Lipid Strip Lenny Razo MD complet ed EKG Lenny Razo MD complete d
--- NOTE | 2024-08-16 20:12 | ED_ITS ---
HPI - General Adult General Chief complaint: Upper Respiratory Infection Stated complaint: chest congestion Source: patient Mode of arrival: ambulatory Limitations: no limitations History of Present Illness HPI narrative: Patient presents for evaluation of a cough. She indicates she has had symptoms for several years. Her current cough started about a month ago. She saw her primary care doctor. She was placed on Levaquin. She did not have an improvement. She saw her [employer] certified network associate, Dr Swift, who placed her on another five day course of levaquin, which she completed nine days ago. She was on 5 mg of prednisone for quite some time but asked her [employer] certified network associate increase it to 10 mg. She does not feel like is strong enough. She reports productive cough green/brown sputum and chronic shortness of breath, not worse than her baseline. She has an underlying history of COPD. She does not smoke. No recent sick contacts. She reports some nausea and chills. She denies fever or vomiting. She also has been taking mucinex for her symptoms. She has serial CT scans every 6 months and has one in the near future per reports. Related Data Home Medications ?Medication ?Instructions ?Recorded ?Confirmed ?Last Taken ?Type albuterol sulfate 2.5 mg/3 mL 2.5 mg inhalation DIRECTED 12/22/19 04/24/24 Unknown History (0.083 %) solution for nebulization albuterol sulfate 90 mcg/actuation 2 inh inhalation DIRECTED 12/22/19 04/24/24 Unknown History aerosol inhaler (Ventolin HFA) amitriptyline 25 mg tablet 25 mg PO DAILY 12/22/19 04/24/24 Unknown History aspirin 81 mg tablet,delayed 81 mg PO DAILY 12/22/19 04/24/24 Unknown History release carvedilol 3.125 mg tablet 3.125 mg PO DAILY 12/22/19 04/24/24 Unknown History cyanocobalamin (vitamin B-12) 1,000 mcg PO DAILY 12/22/19 04/24/24 Unknown History 1,000 mcg tablet,extended release dapagliflozin propaned 5 1 tablet PO BID 12/22/19 04/24/24 Unknown History mg-metformin ER 1,000 mg tablet, ext rel 24hr (Xigduo XR) dulaglutide 0.75 mg/0.5 mL 0.5 mg subcut WEEKLY 12/22/19 04/24/24 Unknown History subcutaneous pen injector (Trulicity) duloxetine 60 mg capsule,delayed 60 mg PO DAILY 12/22/19 04/24/24 Unknown History release ergocalciferol (vitamin D2) 1,250 1,250 mcg PO DAILY 12/22/19 04/24/24 Unknown History mcg (50,000 unit) capsule ivabradine 5 mg tablet (Corlanor) 5 mg PO DAILY 12/22/19 04/24/24 Unknown History levothyroxine 25 mcg tablet 25 mcg PO DAILY 12/22/19 04/24/24 Unknown History magnesium oxide 400 mg (241.3 mg 400 mg PO DAILY 12/22/19 04/24/24 Unknown History magnesium) tablet naloxegol 25 mg tablet (Movantik) 25 mg PO DAILY 12/22/19 04/24/24 Unknown History rosuvastatin 5 mg tablet 5 mg PO DAILY 12/22/19 04/24/24 Unknown History sacubitril 24 mg-valsartan 26 mg 1 tablet PO DAILY 12/22/19 04/24/24 Unknown History tablet (Entresto) sitagliptin phosphate 100 mg 100 mg PO DAILY 12/22/19 04/24/24 Unknown History tablet (Januvia) sumatriptan succinate 100 mg tablet 100 mg PO DAILY 12/22/19 04/24/24 Unknown History theophylline 300 mg 300 mg PO DAILY 12/22/19 04/24/24 Unknown History tablet,extended release,12 hr valacyclovir 500 mg tablet 500 mg PO DIRECTED 12/22/19 04/24/24 Unknown History finerenone 20 mg tablet (Kerendia) 20 mg PO DAILY 12/15/23 04/24/24 Unknown History fluticasone fur. 100 mcg-umeclid See Rx Instructions .Route .COMPLEX 12/15/23 04/24/24 Unknown History 62.5 mcg-vilant 25 mcg inhalat.powder (Trelegy Ellipta) icosapent ethyl 1 gram capsule See Rx Instructions .Route .COMPLEX 12/15/23 04/24/24 Unknown History (Vascepa) ipratropium bromide 0.02 % See Rx Instructions .Route .COMPLEX 12/15/23 04/24/24 Unknown History solution for inhalation linagliptin 5 mg tablet (Tradjenta) 5 mg PO DAILY 12/15/23 04/24/24 Unknown History escitalopram oxalate 20 mg tablet 20 mg PO DAILY 04/24/24 04/24/24 Unknown History gabapentin 800 mg tablet 800 mg PO TID 04/24/24 04/24/24 Unknown History levothyroxine 50 mcg tablet 50 mcg PO DAILY 04/24/24 04/24/24 Unknown History theophylline 400 mg 400 mg PO DAILY 04/24/24 04/24/24 Unknown History tablet,extended release 24 hr diazepam 5 mg tablet mg 07/10/24 Unknown History empagliflozin 10 mg tablet mg 07/10/24 Unknown History (Jardiance) ferrous sulfate 325 mg (65 mg mg 07/10/24 Unknown History iron) tablet (FeroSul) lansoprazole 30 mg capsule,delayed mg 07/10/24 Unknown History release oxycodone-acetaminophen 10 mg-325 tablet 07/10/24 Unknown History mg tablet prednisone 10 mg tablet mg 07/10/24 Unknown History roflumilast 500 mcg tablet mcg 07/10/24 Unknown History Allergies Allergy/AdvReac Type Severity Reaction Status Date / Time Penicillins Allergy Swelling Verified 08/16/24 19:36 of Lip/Tongue/Throat Review of Systems Review of Systems: CONSTITUTIONAL: Reports chills. Denies fever or sweats. EYES: Denies visual changes, redness, or discharge. ENT: Denies rhinorrhea, congestion, sore throat, or otalgia. CARDIOVASCULAR: Denies chest pain, palpitations, or edema. RESPIRATORY: Reports chronic shortness of breath. Reports productive cough of brown/green sputum. GASTROINTESTINAL: Reports nausea. Denies abdominal pain, vomiting, or diarrhea. GENITOURINARY: Denies dysuria or hematuria. SKIN: Denies rash or itching. MUSCULOSKELETAL: Denies back pain, joint pain, or myalgia. NEUROLOGIC: Denies headache, numbness, dizziness, or weakness. PSYCHIATRIC: Denies anxiety or depression. [facility] Past Medical History Medical History Diabetes Hyperlipidemia Hypertension Pacemaker COPD (chronic obstructive pulmonary disease) CHF (congestive heart failure) Surgical History Surgical History History of hysterectomy History of foot surgery History of surgery on wrist History of back surgery Family History Family History Mother Family history non-contributory Other Heart disease Hypertension Social History Social History Smoking status: Former smoker Alcohol intake: current Substance use: never Living arrangements: alone Gender identity (if verbalized by the patient): Female Sexual Orientation (if Verbalized by the Patient): Straight or Heterosexual Spiritual care concerns: No Exam Narrative: GENERAL: Well-appearing, well-nourished, and in no acute distress. HEAD: Normocephalic, atraumatic. EYES: PERRLA and EOMI. ENT: Nares clear, no rhinorrhea or epistaxis. Mucous membranes moist. Oropharynx without tonsillar hypertrophy exudate or other lesions. Bilateral TMs pearly pendleton nonbulging NECK: Supple. No adenopathy or masses. No carotid bruits or JVD CHEST: Wheezing and rales in RLL posteriorly. Cough present on exam. HEART: Regular rate and rhythm. No murmur heard. Normal peripheral pulses. ABDOMEN: Soft, nontender, nondistended, normal active bowel sounds. EXTREMITIES: Normal range of motion. No edema. SKIN: Warm, dry, no rash. NEURO: No focal deficits. Alert and oriented x3. PSYCH: Normal mood and affect. Course Course Emergency Course: This is a 73-year-old female who presented for evaluation of chronic cough. X- ray without evidence of acute cardiopulmonary disease. Will increase her prednisone to 20 mg and she should call her [employer] certified network associate tomorrow to determine how the step-down as she is currently on 10 mg. She has an upcoming CT scan which she was advised to keep. Call primary care provider tomorrow for an appointment. Go to the emergency department for worsening symptoms. Patient in agreement with plan of care Level of Care: Express Care Visit Vital Signs Vital signs: Vital Signs Temperature 37.0 C 08/16/24 19:32 Pulse Rate 80 08/16/24 19:32 Respiratory Rate 20 08/16/24 19:32 Blood Pressure 94/53 L 08/16/24 19:32 Pulse Oximetry 100 08/16/24 19:32 Oxygen Delivery Room Air 08/16/24 19:32 Temperature 37.0 C 08/16/24 19:32 Pulse Rate 80 08/16/24 19:32 Respiratory Rate 20 08/16/24 19:32 Blood Pressure 94/53 L 08/16/24 19:32 Pulse Oximetry 100 08/16/24 19:32 Oxygen Delivery Room Air 08/16/24 19:32 Medical Decision Making Vital Signs Vital Signs: Vital Signs Temperature 37.0 C 08/16/24 19:32 Pulse Rate 80 08/16/24 19:32 Respiratory Rate 20 08/16/24 19:32 Blood Pressure 94/53 L 08/16/24 19:32 Pulse Oximetry 100 08/16/24 19:32 Oxygen Delivery Room Air 08/16/24 19:32 Temperature 37.0 C 08/16/24 19:32 Pulse Rate 80 08/16/24 19:32 Respiratory Rate 20 08/16/24 19:32 Blood Pressure 94/53 L 08/16/24 19:32 Pulse Oximetry 100 08/16/24 19:32 Oxygen Delivery Room Air 08/16/24 19:32 Imaging Data Radiologist's impression: XR chest 2V DATE: 08/16/2024 19:58 INDICATION: Cough TECHNIQUE: 2 views COMPARISON: 04/24/2024 2 view chest FINDINGS: Normal heart size. Left-sided transvenous pacemaker device with leads overlying right atrium and right ventricle. Bilateral hyperinflation. No pulmonary infiltrate or consolidation, pleural effusion or pulmonary vascular congestion or pneumothorax is detected. Aortic arch and great vessel calcification. Osteopenia. Lumbar levoscoliosis. IMPRESSION: Bilateral hyperinflation; no active cardiac pulmonary disease Discharge Plan Discharge Clinical Impression: COPD (chronic obstructive pulmonary disease) Patient Disposition: Home, Self-Care Condition: Stable Instructions: Antibiotic Form, COPD (Chronic Obstructive Pulmonary Disease) (DC) Additional Instructions: PLEASE CALL DR SWIFT TOMORROW TO DETERMINE HOW TO STEP DOWN ON YOUR PREDNISONE Patient Language: Danish Prescriptions: New prednisone 20 mg tablet 20 mg PO DAILY Qty: 4 0RF No Action ipratropium bromide 0.02 % solution See Rx Instructions .ROUTE .COMPLEX Rx Instructions: as prescribed Tradjenta 5 mg tablet 5 mg PO DAILY icosapent ethyl [Vascepa] 1 gram capsule See Rx Instructions .ROUTE .COMPLEX Rx Instructions: as prescribed Trelegy Ellipta 100-62.5-25 mcg blister with device See Rx Instructions .ROUTE .COMPLEX Rx Instructions: as prescribed Kerendia 20 mg tablet 20 mg PO DAILY cyanocobalamin (vitamin B-12) 1,000 mcg tablet extended release 1,000 mcg PO DAILY albuterol sulfate 2.5 mg /3 mL (0.083 %) solution for nebulization 2.5 mg inhalation DIRECTED Rx Instructions: as prescribed sumatriptan succinate 100 mg tablet 100 mg PO DAILY valacyclovir 500 mg tablet 500 mg PO DIRECTED aspirin 81 mg tablet,delayed release (DR/EC) 81 mg PO DAILY carvedilol 3.125 mg tablet 3.125 mg PO DAILY theophylline 300 mg tablet extended release 12 hr 300 mg PO DAILY levothyroxine 25 mcg tablet 25 mcg PO DAILY amitriptyline 25 mg tablet 25 mg PO DAILY magnesium oxide 400 mg (241.3 mg magnesium) tablet 400 mg PO DAILY ergocalciferol (vitamin D2) 1,250 mcg (50,000 unit) capsule 1,250 mcg PO DAILY albuterol sulfate [Ventolin HFA] 90 mcg/actuation HFA aerosol inhaler 2 inh INHALATION DIRECTED rosuvastatin 5 mg tablet 5 mg PO DAILY duloxetine 60 mg capsule,delayed release(DR/EC) 60 mg PO DAILY Januvia 100 mg tablet 100 mg PO DAILY ivabradine [Corlanor] 5 mg tablet 5 mg PO DAILY Trulicity 0.75 mg/0.5 mL pen injector 0.5 mg SUBCUT WEEKLY dapaglifloz propaned-metformin [Xigduo XR] 5-1,000 mg tablet, IR - ER, biphasic 24hr 1 tablet PO BID Movantik 25 mg tablet 25 mg PO DAILY Entresto 24-26 mg tablet 1 tablet PO DAILY gabapentin 800 mg Tablet 800 mg PO TID escitalopram oxalate 20 mg Tablet 20 mg PO DAILY levothyroxine 50 mcg Tablet 50 mcg PO DAILY theophylline 400 mg Tablet Extended Release 24 Hr 400 mg PO DAILY prednisone 10 mg tablet oxycodone-acetaminophen 10-325 mg tablet ferrous sulfate [FeroSul] 325 mg (65 mg iron) tablet lansoprazole 30 mg capsule,delayed release(DR/EC) diazepam 5 mg tablet roflumilast 500 mcg tablet Jardiance 10 mg tablet Follow-up/Referrals: Marilia,Liz Price DO [Non-Staff] - Time of Disposition: 20:27
== END 2024-08-16 20:32 | disposition home or self-care (01) ==
PROVIDERS: Emergency Provider Nurse Practitioner
DX: J44.9 Chronic obstructive pulmonary disease, unspecified (principal); Z87.891 Personal history of nicotine dependence; E11.9 Type 2 diabetes mellitus without complications; Z79.84 Long term (current) use of oral hypoglycemic drugs; Z79.85 Long-term (current) use of injectable non-insulin antidiabetic drugs; E78.5 Hyperlipidemia, unspecified; I11.0 Hypertensive heart disease with heart failure; I50.9 Heart failure, unspecified; Z95.0 Presence of cardiac pacemaker; Z79.82 Long term (current) use of aspirin
CPT/HCPCS: 71046; 99213; G0463

== ENCOUNTER 2024-12-02 13:15 | Emergency (ER) | payer OTHER, SELFPAY ==
--- OUTSIDE RECORDS SUMMARY | 2024-12-02 13:23 | XMS_ITS | Encounter Summary ---
Author Organization [facility] Address [address] [place] [address] Phone Care Team Providers Care Iron Miner Blasting Name Role Phone Quang Locke Unavailable [phone] Keith Craft MD Primary Care Provider [phone] Bri Rollins RN Unavailable Unavailable Silvio Schulte MD Unavailable [phone] Bri Rollins RN Unavailable Unavailable Werner Swift MD Unavailable Liz Capellan DO Primary Care Provider [phone] Yasmin Restrepo MD Unavailable Jose Do MD Unavailable Reason for Visit * Reason Comments Medication Refill Encounter Details Date Type Department Care Team (Late st Contact Info) Description 12/04/2021 Refill [facility] - Family Medicine [facility] [address] [place] [address] Keith Craft MD [address] [place] [address] Medication Refill Social History Tobacco Use Types Packs/Day Years Used Date Smoking Tobacco: Former Cigarettes 2 50 1 - 03/16/2018 Smokeless Tobacco: Never Comments:Still uses nictoine patches and gum Alcohol Use Standard Drinks/Week Comments No 0 (1 standard drink = 0.6 oz pur e alcohol) PHQ-2 Answer Date Recorded Total Score - Questions 1-9 0 01/0 08/2021 Sexually Active Control Partners Comments Not [...] MD [facility] 07/31/21 Office Visit [facility], [facility] 05/25/21 Office Visit Marcin Anderson, MANAGER CARDIAC, SHOE LAY OUT PLANNER [facility] 05/05/21 Office Visit Brie Denis PAC [facility] 04/14/21 Office Visit Keith Craft MD [facility] 03/23/21 Office Visit Keith Craft, [facility] Showing recent visits within past 365 days and meeting all other requirements Future Appointments Date Type Provider Dept 12/19/21 Appointment Keith Craft, MD [facility] Showing future appointments within next 90 days and meeting all other requirements documented in this encounter Plan of Treatment Upcoming Encounters Date Type Department Care Team (Late st Contact Info) Description 12/04/2024 12:45 PM CDT Office Visit [facility] Family Medicine - [place] [address] [place] [address] Ana Vivar, REBECCA, SHOE LAY OUT PLANNER 2 [facility] [address] [place] [address] 12/09/2024 11:15 AM CDT Office Visit [facility] - General Surgery - [place] [address]2 [facility] [address] [place] [address] Jose Do MD #[address] [facility] [address] [place] [address] 01/04/2025 1:30 PM CDT Office Visit [facility] - Pulmonology & Sleep Medicine - [place] [address]2 [place] [phone] Werner Swift MD [address] [place] [address] 03/01/2025 1:30 PM CDT Office Visit [facility] - Endocrinology - [place] [address] [place] [address] Yasmin Restrepo MD #2 [facility] [address] [place] [address] 05/13/2025 1:20 PM HANDYPERSON Office Visit [facility] Family Medicine - [place] [address] [place] [address] Liz Capellan, DO 2 [facility]. [address] [place] [address] documented as of this encounter Goals Goal [...] Zones/Action plan education. I will notify my Packaging Machine Supplies Distributor if my symptoms fall in the y [...] a follow up respiratory sample to remove isolation/infection flag. 10/20/2021 10/20/2021 COVID - 19 04/20/2022 04/20/2022 04/30/2022 12:1 8 AM HANDYPERSON COVID - 19 07/18/2022 07/18/2022 07/28/2022 12:1 6 AM HANDYPERSON COVID - 19 08/21/2022 08/21/2022 08/22/2022 8:31 AM CDT Respiratory Rule Out - RPA 08/21/2022 08/21/2022 0 08/22/2022 3:21 PM CDT COVID - 19 04/18/2023 04/18/2023 04/28/2023 12:1 6 AM HANDYPERSON COVID - 19 07/13/2023 07/13/2023 07/23/2023 12:1 6 AM HANDYPERSON Respiratory Rule Out - RPA 03/17/2024 03/17/2024 1 3:36 PM CDT COVID - 19 04/27/2024 04/27/2024 04/27/2024 2:19 PM HANDYPERSON Respiratory Rule-Out 07/24/2024 07/24/2024 025 2:29 PM HANDYPERSON COVID - 19 07/24/2024 07/24/2024 07/24/2024 2:29 PM HANDYPERSON COVID - 19 08/22/2024 08/22/2024 08/22/2024 11:4 6 PM CDT COVID - 19 09/03/2024 09/03/2024 09/03/2024 12:4 7 PM CDT Assessment Noted Time PHQ-9 Depression Total Score: 1 03/07/20 21 10:29 AM CDT documented as of this encounter Care Teams Iron Miner Blasting Relationship Specialty Start Date End Date Keith Craft MD PCP - General Family Medicine 01/14/19 12/26/23 Liz Capellan DO 2 [facility] [address] [place] [address] PCP - General Family Medicine 12/27/23 Quang Locke DO Gastroenterology 01/18/16 Bri Rollins, [place] Pack[employer] Machine Supplies Distributor 03/07/21 05/22/23 [place] [id number] [address] 05/25/21 Bri Rollins RN [place] Nurse Packaging Machine Supplies Distributor 03/07/21 05/23/23 Werner Swift MD [address] [place] [phone] Consulting Physician Pulmonary Disease 01/30/22 Yasmin Restrepo MD [address] [address] Consulting Physician Endocrinology 07/20/24 Jose Do MD #[address] [address] Consulting Physician Colon and Rectal Surgery 10/12/24 documented as of this encounter
--- OUTSIDE RECORDS SUMMARY | 2024-12-02 13:23 | XMS_ITS | Encounter Summary ---
Author Organization [facility] Address [address] [place] [address] Phone Care Team Providers Care Sewer Connector Name Role Phone Quang Locke Unavailable [phone] Keith Craft MD Primary Care Provider [phone] Bri Rollins RN Unavailable Unavailable Silvio Schulte MD Unavailable [phone] Bri Rollins RN Unavailable Unavailable Werner Swift MD Unavailable Liz Capellan DO Primary Care Provider [phone] Yasmin Restrepo MD Unavailable Jose Do MD Unavailable Reason for Visit * Reason Comments Medication Refill Encounter Details Date Type Department Care Team (Late st Contact Info) Description 11/21/2021 Refill [facility] - Family Medicine [facility] [address] [place] [address] Keith Craft MD [address] [place] [address] Medication Refill Social History Tobacco Use Types [...] [place] 05/25/21 Office Visit Marcin Anderson APRN, BAG MENDER [facility] 05/05/21 Office Visit Brie Denis, PAC [facility] 04/14/21 Office Visit Keith Craft MD [facility] [place] 05/25/21 Office Visit Marcin Anderson APRN, BAG MENDER [facility] 05/05/21 Office Visit Brie Denis, PAC [facility] 04/14/21 Office Visit Keith Craft MD [facility] [...] Description 12/04/2024 12:45 PM CDT Office Visit [facility] Family [facility] - [place] #2 [place] [address] Ana Vivar, REBECCA, BAG MENDER 2 [facility] [address] [place] [address] 12/09/2024 11:15 AM CDT Office Visit [facility] General Surgery - [place] [address] [place] [phone] Jose Do MD #[address] [place] [address] 01/04/2025 1:30 PM CDT Office Visit [facility] - Pulmonology & Sleep Medicine - [place] #2 [place] [address] Werner Swift MD #2 [place] [address] 03/01/2025 1:30 PM CDT Office Visit [facility] Endocrinology - [place] #2 [place] [address] Yasmin Restrepo MD #[address] [place] [address] 05/13/2025 1:20 PM SCRAP STRIPPER HAND Office Visit [facility] Family [facility] [place] [address] [place] [address] Liz Capellan, DO 2 [facility] [address] [place] [address] documented as of this encounter Goals Goal [...] plan education. I will notify my Machine Load Clerk if my symptoms fall in the [...] 19 04/20/2022 04/20/2022 04/30/2022 12:1 8 AM SCRAP STRIPPER HAND COVID - 19 07/18/2022 07/18/2022 07/28/2022 12:1 6 AM SCRAP STRIPPER HAND COVID - 19 08/21/2022 08/21/2022 08/22/2022 8:31 AM CDT Respiratory Rule Out - RPA 08/21/2022 08/21/2022 0 08/22/2022 3:21 PM CDT COVID - 19 04/18/2023 04/18/2023 04/28/2023 12:1 6 AM SCRAP STRIPPER HAND COVID - 19 07/13/2023 07/13/2023 07/23/2023 12:1 6 AM SCRAP STRIPPER HAND Respiratory Rule Out - RPA 03/17/2024 03/17/2024 1 3:36 PM CDT COVID - 19 04/27/2024 04/27/2024 04/27/2024 2:19 PM SCRAP STRIPPER HAND Respiratory Rule-Out 07/24/2024 07/24/2024 025 2:29 PM SCRAP STRIPPER HAND COVID - 19 07/24/2024 07/24/2024 07/24/2024 2:29 PM SCRAP STRIPPER HAND COVID - 19 08/22/2024 08/22/2024 08/22/2024 11:4 6 PM CDT COVID - 19 09/03/2024 09/03/2024 09/03/2024 12:4 7 PM CDT Assessment Noted Time PHQ-9 Depression Total Score: 1 03/07/20 21 10:29 AM CDT documented as of this encounter Care Teams Sewer Connector Relationship Specialty Start Date End Date Keith Craft MD PCP - General Family Medicine 01/14/19 12/26/23 Liz Capellan DO [address] [address] PCP - General Family Medicine 12/27/23 Quang Locke DO Gastroenterology 01/18/16 Bri Rollins RN [place] Machine Load Clerk 03/07/21 05/22/23 [place] [id number] [address] 05/25/21 Bri Rollins, RN [place] Nurse Machine Load Clerk 03/07/21 05/23/23 Werner Swift MD #[address] [place] [address] Consulting Physician Pulmonary Disease 01/30/22 Yasmin Restrepo MD #[address] [phone] Consulting Physician Endocrinology 07/20/24 Jose Do MD #[address] [address] Consulting Physician Colon and Rectal Surgery 10/12/24 documented as of this encounter
--- OUTSIDE RECORDS SUMMARY | 2024-12-02 13:23 | XMS_ITS | Encounter Summary ---
Author Organization [facility] Address [address] [place] [address] Phone Care Team Providers Care Forging Machine Hand Name Role Phone Quang Locke Oswaldo PRESLEY Unavailable [phone] Silvio Schulte MD Unavailable [phone] Werner Swift MD Unavailable Liz Capellan DO Primary Care Provider [phone] Yasmin Restrepo MD Unavailable Jose Do MD Unavailable Encounter Details Date Type Department Care Team (Late st Contact Info) Description 04/30/2024 Home Health Resumpti on of Care Planning [facility] [address] [place] [address] Social History Tobacco Use Types Packs/Day Years Used Date Smoking Tobacco: Former Cigarettes 2 50 1 - 03/16/2018 Smokeless Tobacco: Never Comments:Still uses nictoine patches and gum Alcohol Use Standard Drinks/Week Comments No 0 (1 standard drink = 0.6 oz pur e alcohol) [facility] Utilities Answer Date Recorded In the past 12 months has [employer], gas, oil, or water company threatened to shut off services in your home? Patient declined 04/27/2024 Social Connection and Isolation Panel Answer Date Recorded In a typical week, how many times do you talk on the phone with family, friends, or neighbors? Patient declined 04/27/2024 How often do you get togethe r with friends or relatives? Patient declined 04/27/2024 How often do you attend hoahaoism or orthodox serv ices? Patient declined 04/27/2024 [...] 4 10/25 [facility] - Occupational Stress Questionnaire Answer Date Recorded [...] a nursing home (including now)? No 07/13/2023 Housing Stability [...] any time in the past 12 m [facility], were you homeless or living in a nursing home (including now)? Patient declined 04/27/2024 Education [...] Description 12/04/2024 12:45 PM CDT [facility] Family Medicine [facility] [address] [place] [address] Ghazala, Ana N, PUTTY MIXER AND APPLIER, TIN CUTTER [address] [place], ESCOBAR. [address] [place] [address] 12/09/2024 11:15 AM CDT Office Visit [facility] General Surgery - [place] [address] [place] [address] Jose Do MD [facility]2 [facility] [address] [place] [address] 01/04/2025 1:30 PM CDT Office Visit [facility] - Pulmonology & Sleep Medicine - [place] #[address] [place] [address] Werner Swift MD #2 [place] [address] 03/01/2025 1:30 PM CDT Office Visit [facility] Endocrinology - [place] #2 [facility] [address] Yasmin Restrepo MD #[address] [address] 05/13/2025 1:20 PM GAS SCRUBBER OPERATOR Office Visit [facility] Family Medicine - [place] #[address] [place] [address] Liz Capellan, DO 2 [facility] [address] [address] [address] documented as of this encounter Goals Goal [...] Zones/Action plan education. I will notify my Photoengraving Etcher Apprentice if my symptoms fall in the [...] sample to remove isolation/infection flag. 10/20/2021 10/20/2021 Respiratory Rule-Out 07/24/2024 07/24/2024 025 2:29 PM GAS SCRUBBER OPERATOR COVID - 19 07/24/2024 07/24/2024 07/24/2024 2:29 PM GAS SCRUBBER OPERATOR COVID - 19 08/22/2024 08/22/2024 08/22/2024 11:4 6 PM CDT COVID - 19 09/03/2024 09/03/2024 09/03/2024 12:4 7 PM CDT Assessment Noted Time PHQ-9 Depression Total Score: 4 11/08/19 24 9:33 AM CDT documented as of this encounter Care Teams Forging Machine Hand Relationship Specialty Start Date End Date Liz Capellan DO [address] [address] PCP - General Family Medicine 12/27/23 Quang Locke DO Gastroenterology 01/18/16 [place] [address] [address] 05/25/21 Werner Swift MD #2 [place] [address] Consulting Physician Pulmonary Disease 01/30/22 Yasmin Restrepo MD #[address] [address] Consulting Physician Endocrinology 07/20/24 Jose Do MD #[address] [address] Consulting Physician Colon and Rectal Surgery 10/12/24 documented as of this encounter
--- OUTSIDE RECORDS SUMMARY | 2024-12-02 13:23 | XMS_ITS | Encounter Summary ---
Author Organization [facility] Address [address] [place] [address] Phone Care Team Providers Care Radio Tower Technician Name Role Phone Quang Locke Unavailable [phone] Keith Craft MD Primary Care Provider Bri Rollins RN Unavailable Unavailable Silvio Schulte MD Unavailable [phone] Bri Rollins RN Unavailable Unavailable Werner Swift MD Unavailable Liz Capellan DO Primary Care Provider [phone] Yasmin Restrepo MD Unavailable Jose Do MD Unavailable Reason for Visit * Reason Comments Medication Refill Encounter Details Date Type Department Care Team (Late st Contact Info) Description 11/20/2021 Refill [facility] #2 [place] [address] Keith Craft MD #1 [place] [address] Medication Refill Social History Tobacco Use Types [...] Tesf[place] 07/31/21 Office Visit Keith Craft MD [facility] 05/25/21 Office Visit Marcin Anderson, REBECCA, FNPS [facility] 05/05/21 Office Visit [facility]rie [facility] 04/14/21 [facility] 03/23/21 Office Visit Keith Craft MD [facility] Showing recent visits within past 730 days and meeting all other requirements Future Appointments Date Type Provider Dept 12/19/21 Appointment Keith Craft MD [facility] [place] Showing future appointments within next 90 days and meeting all other requirements Passed - No documented Systolic BP > 200 within past 3 months Passed - Number of active Serotonergic medications less than 3 documented in this encounter Plan of Treatment Upcoming Encounters Date Type Department Care Team (Late st Contact Info) Description 12/04/2024 12:45 PM CDT Office Visit [facility] Medical [facility] - Family Medicine - [place] #2 [place] [address] Ana Vivar APRN, FNPS 2 [facility] [address] [place] [address] 12/09/2024 11:15 AM CDT Office Visit [facility] Medical [facility] - General Surgery - [place] #2 [facility] [address] [place] [address] Jose Do MD #2 [facility] [address] [place] [address] 01/04/2025 1:30 PM CDT Office Visit [facility] Medical [facility] - Pulmonology & Sleep Medicine - [place] #2 [place] [address] Werner Swift MD #2 [place] [address] 03/01/2025 1:30 PM CDT Office Visit [facility] Medical [facility] - Endocrinology - [place] #2 [place] [facility] [place] [address] Yasmin Restrepo MD #2 Y[place] [facility] [address] [place] [address] 05/13/2025 1:20 PM SHEET ROCK APPLIER Office Visit [facility] - Family Medicine - [place] #2 [facility] [place] [address] Liz Capellan, DO 2 [facility] [place] [facility]. [address] [place] [address] documented as of this encounter Goals Goal [...] Zones/Action plan education. I will notify my Log Chain Feeder if my symptoms fall in the [...] 19 04/20/2022 04/20/2022 04/30/2022 12:1 8 AM SHEET ROCK APPLIER COVID - 19 07/18/2022 07/18/2022 07/28/2022 12:1 6 AM SHEET ROCK APPLIER COVID - 19 08/21/2022 08/21/2022 08/22/2022 8:31 AM CDT Respiratory Rule Out - RPA 08/21/2022 08/21/2022 0 08/22/2022 3:21 PM CDT COVID - 19 04/18/2023 04/18/2023 04/28/2023 12:1 6 AM SHEET ROCK APPLIER COVID - 19 07/13/2023 07/13/2023 07/23/2023 12:1 6 AM SHEET ROCK APPLIER Respiratory Rule Out - RPA 03/17/2024 03/17/2024 1 3:36 PM CDT COVID - 19 04/27/2024 04/27/2024 04/27/2024 2:19 PM SHEET ROCK APPLIER Respiratory Rule-Out 07/24/2024 07/24/2024 025 2:29 PM SHEET ROCK APPLIER COVID - 19 07/24/2024 07/24/2024 07/24/2024 2:29 PM SHEET ROCK APPLIER COVID - 19 08/22/2024 08/22/2024 08/22/2024 11:4 6 PM CDT COVID - 19 09/03/2024 09/03/2024 09/03/2024 12:4 7 PM CDT Assessment Noted Time PHQ-9 Depression Total Score: 1 03/07/20 21 10:29 AM CDT documented as of this encounter Care Teams Radio Tower Technician Relationship Specialty Start Date End Date Keith Craft MD PCP - General Family Medicine 01/14/19 12/26/23 Liz Capellan DO 2 [facility] [address] [place] [address] PCP - General Family Medicine 12/27/23 Quang Locke DO Gastroenterology 01/18/16 Bri Rollins, RN [place] Log Chain Feeder 03/07/21 05/22/23 [place] [address] [address] 05/25/21 Bri Rollins RN [place] Nurse Log Chain Feeder 03/07/21 05/23/23 Werner Swift MD #[address] [place] [address] Consulting Physician Pulmonary Disease 01/30/22 Yasmin Restrepo MD #[address] [address] Consulting Physician Endocrinology 07/20/24 Jose Do MD #2 [facility] [address] [place] [address] Consulting Physician Colon and Rectal Surgery 10/12/24 documented as of this encounter
--- OUTSIDE RECORDS SUMMARY | 2024-12-02 13:23 | XMS_ITS | Encounter Summary ---
Author Organization [facility] Address [address] [place] [address] Phone Care Team Providers Care Oil Laboratory Analyst Name Role Phone Quang Locke Unavailable [phone] Keith Craft MD Primary Care Provider [phone] Bri Rollins RN Unavailable Unavailable Silvio Schulte MD Unavailable [phone] Bri Rollins RN Unavailable Unavailable Werner Swift MD Unavailable Liz Capellan DO Primary Care Provider [phone] Yasmin Restrepo MD Unavailable Jose Do MD Unavailable Reason for Visit * Reason Comments Medication Refill Encounter Details Date Type Department Care Team (Late st Contact Info) Description 11/30/2021 Refill [facility] - Family Medicine [facility] [place] #[address] [place] [address] Keith Craft MD #1 [place] [address] Medication Refill Social History Tobacco Use Types [...] medication order if appropriate. PDMP 11/02/21 Elida RN Requested Prescriptions Pending Prescriptions Disp Refills diazePAM [...] [facility] [place] 05/25/21 Office Visit Marcin Anderson, ENTRY SPECIALIST, AUTO SLIP COVER INSTALLER [facility] 05/05/21 Office Visit Brie Denis PAC [facility] 04/14/21 Office Visit [facility] 03/23/21 Office Visit Keith Craft MD [facility] Showing recent visits within past 365 days and meeting all other requirements Future Appointments Date Type Provider Dept 12/19/21 Appointment Keith Craft MD [facility] Showing future appointments within next 90 days and meeting all other requirements documented in this encounter Plan of Treatment Upcoming Encounters Date Type Department Care Team (Late st Contact Info) Description 12/04/2024 12:45 PM CDT Office Visit [facility] - Family Medicine - [place] #[address] [place] [address] Ana Vivar, ENTRY SPECIALIST, AUTO SLIP COVER INSTALLER 2 [facility] [address] [place] [address] 12/09/2024 11:15 AM CDT Office Visit [facility] Medical [facility] - General Surgery - [place] #2 [facility] [address] [place] [address] Jose Do MD #[address] [address] 01/04/2025 1:30 PM CDT Office Visit [facility] Medical [facility] - Pulmonology & Sleep Medicine - [place] #2 [place] [address] Werner Swift MD #2 [place] [address] 03/01/2025 1:30 PM CDT Office Visit [facility] - Endocrinology - [place] #[address] [place] [address] Yasmin Restrepo MD #2 [place] [facility] [address] [place] [address] 05/13/2025 1:20 PM FRONT MAKER LOCKSTITCH Office Visit [facility] - Family Medicine - [place] #[address] [place] [address] Liz Capellan, DO 2 [facility]. [address] [place] [address] documented as of this encounter Goals Goal [...] Zones/Action plan education. I will notify my Stationary Fireman if my symptoms fall in the y [...] 19 04/20/2022 04/20/2022 04/30/2022 12:1 8 AM FRONT MAKER LOCKSTITCH COVID - 19 07/18/2022 07/18/2022 07/28/2022 12:1 6 AM FRONT MAKER LOCKSTITCH COVID - 19 08/21/2022 08/21/2022 08/22/2022 8:31 AM CDT Respiratory Rule Out - RPA 08/21/2022 08/21/2022 0 08/22/2022 3:21 PM CDT COVID - 19 04/18/2023 04/18/2023 04/28/2023 12:1 6 AM FRONT MAKER LOCKSTITCH COVID - 19 07/13/2023 07/13/2023 07/23/2023 12:1 6 AM FRONT MAKER LOCKSTITCH Respiratory Rule Out - RPA 03/17/2024 03/17/2024 1 3:36 PM CDT COVID - 19 04/27/2024 04/27/2024 04/27/2024 2:19 PM FRONT MAKER LOCKSTITCH Respiratory Rule-Out 07/24/2024 07/24/2024 2:29 PM FRONT MAKER LOCKSTITCH COVID - 19 07/24/2024 07/24/2024 07/24/2024 2:29 PM FRONT MAKER LOCKSTITCH COVID - 19 08/22/2024 08/22/2024 08/22/2024 11:4 6 PM CDT COVID - 19 09/03/2024 09/03/2024 09/03/2024 12:4 7 PM CDT Assessment Noted Time PHQ-9 Depression Total Score: 1 03/07/20 21 10:29 AM CDT documented as of this encounter Care Teams Oil Laboratory Analyst Relationship Specialty Start Date End Date Keith Craft MD PCP - General Family Medicine 01/14/19 12/26/23 Liz Capellan DO 2 [facility] [place] [address] PCP - General Family Medicine 12/27/23 Quang Locke DO Gastroenterology 01/18/16 Bri Rollins, KATEY [place] Stationary Fireman 03/07/21 05/22/23 [place] [address] [address] 05/25/21 Bri Rollins, KATEY [place] Nurse Stationary Fireman 03/07/21 05/23/23 Werner Swift MD #2 [place] [address] Consulting Physician Pulmonary Disease 01/30/22 Yasmin Restrepo MD #[address] [address] Consulting Physician Endocrinology 07/20/24 Jose Do MD #[address] [address] Consulting Physician Colon and Rectal Surgery 10/12/24 documented as of this encounter
--- OUTSIDE RECORDS SUMMARY | 2024-12-02 13:23 | XMS_ITS | Encounter Summary ---
Author Organization [facility] Address [address] [place] [address] Phone Care Team Providers Care Rfid Strategist Name Role Phone Quang Locke DO Unavailable [phone] Keith Craft MD Primary Care Provider [phone] Silvio Schulte MD Unavailable [phone] Werner Swift MD Unavailable Liz Capellan DO Primary Care Provider [phone] Yasmin Restrepo MD Unavailable Jose Do MD Unavailable Reason for Visit * Reason Comments Medication Refill Encounter Details Date Type Department Care Team (Late st Contact Info) Description 08/07/2023 Refill [facility] Medicine [facility] #2 [place] [address] Keith Craft MD #1 [place] [address] Medication Refill Social History Tobacco Use Types Packs/Day Years Used Date Smoking Tobacco: Former Cigarettes 2 50 1 - 03/16/2018 Smokeless Tobacco: Never Comments:Still uses nictoine patches and gum Alcohol Use Standard Drinks/Week Comments No 0 (1 standard drink = 0.6 oz pur e alcohol) [facility] Utilities Answer Date Recorded In the past 12 months has e electric, gas, oil, or water company threatened to shut off services in your home? No 07/13/2023 Social Connection and Isolation Panel Answer Date Recorded In a typical week, how many times do you talk on the phone with family, friends, or neighbors? Never 07/13/19 How often do you get togethe r with friends or relatives? Never 07/13/2023 How often do you attend chur ch or latter day services? Never 07/13/2023 Do you belong to any clubs o r organizations such as jehovah's witness groups, unions, fraternal or athletic groups, or [...] Total Score - Questions 1-9 0 08/2021 [facility] Occupat ional Health - Occupational Stress [...] [place] 09/10/22 Office Visit Keith Craft MD [facility] Showing recent visits within past 365 days and meeting all other requirements Future Appointments Date Type Provider Dept 08/15/23 Appointment Keith Craft MD [facility] Showing future appointments within next 90 days and meeting all other requirements documented in this encounter Plan of Treatment Upcoming Encounters Date Type Department Care Team (Late st Contact Info) Description 12/04/2024 12:45 PM CDT Office Visit [facility] Family Medicine - [place] #2 [place] [address] Ana Vivar, CATTERY OPERATOR, MODERN DANCER 2 [facility] [address] [place] [address] 12/09/2024 11:15 AM CDT Office Visit [facility] - General Surgery - [place] #[address] [address] Jose Do MD #[address] [place] [address] 01/04/2025 1:30 PM CDT Office Visit [facility] - Pulmonology & Sleep Medicine - [place] #2 [place] [address] Werner Swift MD #2 [place] [address] 03/01/2025 1:30 PM CDT Office Visit [facility] - Endocrinology - [place] #2 [place] [address] Yasmin Restrepo MD #2 [facility] [address] [place] [address] 05/13/2025 1:20 PM [facility] Office Visit [facility] Family Medicine - [place] #2 [place] [address] Liz Capellan, DO 2 [facility] [place] [facility]. [address] [place] [address] documented as of this encounter Goals Goal [...] Zones/Action plan education. I will notify my Railway Signal Technician if my symptoms fall in the [...] to remove isolation/infection flag. 10/20/2021 10/20/2021 Respiratory Rule Out - RPA 03/17/2024 03/17/2024 1 3:36 PM CDT COVID - 19 04/27/2024 04/27/2024 04/27/2024 2:19 PM [facility] Respiratory Rule-Out 07/24/2024 07/24/2024 025 2:29 PM [facility] COVID - 19 07/24/2024 07/24/2024 07/24/2024 2:29 PM [facility] COVID - 19 08/22/2024 08/22/2024 08/22/2024 11:4 6 PM CDT COVID - 19 09/03/2024 09/03/2024 09/03/2024 12:4 7 PM CDT Assessment Noted Time PHQ-9 Depression Total Score: 1 03/07/20 21 10:29 AM CDT documented as of this encounter Care Teams Rfid Strategist Relationship Specialty Start Date End Date Keith Craft MD PCP - General Family Medicine 01/14/19 12/26/23 Liz Capellan DO [address] [address] PCP - General Family Medicine 12/27/23 Quang Locke DO Gastroenterology 01/18/16 [place] [address] [address] 05/25/21 Werner Swift MD #2 [place] [address] Consulting Physician Pulmonary Disease 01/30/22 Yasmin Restrepo MD #[address] [address] Consulting Physician Endocrinology 07/20/24 Jose Do MD #[address] [address] Consulting Physician Colon and Rectal Surgery 10/12/24 documented as of this encounter
--- OUTSIDE RECORDS SUMMARY | 2024-12-02 13:23 | XMS_ITS | Encounter Summary ---
Author Organization [facility] Address [address] [place] [address] Phone Care Team Providers Care Loan Originator Name Role Phone Quang Locke Unavailable Keith Craft MD Primary Care Provider [phone] Bri Rollins RN Unavailable Unavailable Silvio Schulte MD Unavailable [phone] Bri Rollins RN Unavailable Unavailable Werner Swift MD Unavailable Liz Capellan DO Primary Care Provider [phone] Yasmin Restrepo MD Unavailable Jose Do MD Unavailable Reason for Visit * Reason Comments Medication Refill Encounter Details Date Type Department Care Team (Late st Contact Info) Description 02/13/2022 Refill [facility] - Family Medicine [facility] #2 [place] [address] Keith Craft MD #1 [place] [address] Medication Refill Social History Tobacco Use Types Packs/Day Years Used Date Smoking Tobacco: Former Cigarettes 2 50 1 - 03/16/2018 Smokeless Tobacco: Never Comments:Still uses nictoine patches and gum Alcohol Use Standard Drinks/Week Comments No 0 (1 standard drink = 0.6 oz pur e alcohol) PHQ-2 Answer Date Recorded Total Score - Questions 1-9 0 0 08/2021 Sexually Active Control Partners Comments [...] [place] 09/08/21 Office Visit Brie Denis, NICOLE [facility] [place] Showing recent visits within past 182 [...] 09/08/21 Office Visit Brie Denis, PAC [facility] [place] 08/14/21 Office Visit Keith Craft MD [facility] [place] 07/31/21 Office Visit Keith Craft MD [facility] [place] 05/25/21 Office Visit Marcin Anderson APRN, ELECTRONIC NEWS GATHERING CAMERA PERSON [facility] [place] 05/05/21 Office Visit Brie Denis, PAC [facility] [place] 04/14/21 Office Visit Keith Craft MD [facility] [...] Description 12/04/2024 12:45 PM CDT [facility] [place] #2 [place] [address] Ana Vivar APRN, ELECTRONIC NEWS GATHERING CAMERA PERSON 2 [facility] [address] [place] [address] 12/09/2024 11:15 AM CDT [facility] [place] #2 [facility] [address] [place] [address] Jose Do MD #[address] [address] 01/04/2025 1:30 PM CDT Office Visit [facility] - Pulmonology & Sleep Medicine - [place] #2 [place] [address] Werner Swift MD #2 [place] [address] 03/01/2025 1:30 PM CDT Office Visit [facility] Endocrinology - [place] #2 [facility] [place] [address] Yasmin Restrepo MD #[address] [address] 05/13/2025 1:20 PM POKER DEALER Office Visit [facility] - [place] #2 [place] [address] Liz Capellan, DO 2 [facility] [address] [place] [address] documented as of this encounter Goals Goal [...] Zones/Action plan education. I will notify my Verification Lead if my symptoms fall in the [...] 19 04/20/2022 04/20/2022 04/30/2022 12:1 8 AM POKER DEALER COVID - 19 07/18/2022 07/18/2022 07/28/2022 12:1 6 AM POKER DEALER COVID - 19 08/21/2022 08/21/2022 08/22/2022 8:31 AM CDT Respiratory Rule Out - RPA 08/21/2022 08/21/2022 0 08/22/2022 3:21 PM CDT COVID - 19 04/18/2023 04/18/2023 04/28/2023 12:1 6 AM POKER DEALER COVID - 19 07/13/2023 07/13/2023 07/23/2023 12:1 6 AM POKER DEALER Respiratory Rule Out - RPA 03/17/2024 03/17/2024 1 3:36 PM CDT COVID - 19 04/27/2024 04/27/2024 04/27/2024 2:19 PM POKER DEALER Respiratory Rule-Out 07/24/2024 07/24/2024 025 2:29 PM POKER DEALER COVID - 19 07/24/2024 07/24/2024 07/24/2024 2:29 PM POKER DEALER COVID - 19 08/22/2024 08/22/2024 08/22/2024 11:4 6 PM CDT COVID - 19 09/03/2024 09/03/2024 09/03/2024 12:4 7 PM CDT Assessment Noted Time PHQ-9 Depression Total Score: 1 03/07/20 10:29 AM CDT documented as of this encounter Care Teams Loan Originator Relationship Specialty Start Date End Date Keith Craft MD PCP - General Family Medicine 01/14/19 12/26/23 Liz Capellan DO [address] [address] PCP - General Family Medicine 12/27/23 Quang Locke DO Gastroenterology 01/18/16 Bri Rollins RN [place] Verification Lead 03/07/21 05/22/23 [place] [address] [address] 05/25/21 Bri Rollins RN [place] Nurse Verification Lead 03/07/21 05/23/23 Werner Swift MD #2 [place] [address] Consulting Physician Pulmonary Disease 01/30/22 Yasmin Restrepo MD #[address] [address] Consulting Physician Endocrinology 07/20/24 Jose Do MD #[address] [address] Consulting Physician Colon and Rectal Surgery 10/12/24 documented as of this encounter
--- OUTSIDE RECORDS SUMMARY | 2024-12-02 13:23 | XMS_ITS | Encounter Summary ---
Author Organization [facility] Address [address] [place] [address] Phone Care Team Providers Care Chief Contract Officer Name Role Phone Quang Locke Oswaldo PRESLEY Unavailable [phone] Silvio Schulte MD Unavailable [phone] Werner Swift MD Unavailable Liz Capellan DO Primary Care Provider Yasmin Restrepo MD Unavailable Jose Do MD Unavailable Encounter Details Date Type Department Care Team (Late st Contact Info) Description 05/04/2024 Lab Requisition [facility] 1 [place] [address] Liz Capellan DO [address] [id number] Pneumonia, unspecified organism Social History Tobacco Use Types Packs/Day Years Used Date Smoking Tobacco: Former Cigarettes 2 50 1 - 03/16/2018 Smokeless Tobacco: Never Comments:Still uses nictoine patches and gum Alcohol Use Standard Drinks/Week Comments No 0 (1 standard drink = 0.6 oz pur e alcohol) [facility] Utilities Answer Date Recorded In [...] declined 04/27/2024 How often do you attend sikh or christian serv ices? Patient declined 04/27/2024 Do you [...] Total Score - Questions 1-9 4 10/25 [facility] - Occupational Stress Questionnaire Answer [...] in a fci (including now)? No 07/13/2023 Housing Stability Vital [...] time in the past 12 m [facility], were you homeless or living in a fci (including now)? Patient declined 04/27/2024 Education Answer [...] Description 12/04/2024 12:45 PM CDT Office Visit [facility] - [place] #2 [place] [address] Ana Vivar, BANK CLERK, FLOOR SANDING MACHINE OPERATOR 2 [facility] [address] [place] [address] 12/09/2024 11:15 AM CDT Office Visit [facility] General Surgery - [place] #2 [facility] [address] [place] [address] Jose Do MD #[address] [place] [address] 01/04/2025 1:30 PM CDT Office Visit [facility] - Pulmonology & Sleep Medicine - [place] #2 [place] [address] Werner Swift MD #2 [place] [address] 03/01/2025 1:30 PM CDT Office Visit [facility] - Endocrinology - [place] #2 [place] [address] Yasmin Restrepo MD #[address] [phone] 05/13/2025 1:20 PM PROCESS COORDINATOR Office Visit [facility] - [place] #2 [place] [address] Liz Capellan, DO 2 [facility] [address] [place] [address] documented as of this encounter Goals Goal [...] Zones/Action plan education. I will notify my Behavioral Medical Director if my symptoms fall in the y ellow zone . I will consider receiving an influenza and pneumonia vaccination, if applicable. -I will call the office if I experience any symptoms listed above to discuss at home management options. documented as of this encounter Procedures Procedure Name Priority Date/Time Associated Diagnosis Comments CBC WITH AUTO DIFFERENTIAL Routine 05/04/2024 9:30 AM PROCESS COORDINATOR Pneumonia, unspecified organism THYROXINE (T4) TOTAL Routine 05/04/2024 9:30 AM PROCESS COORDINATOR Pneumonia, unspecified organism COMPLETE BLOOD COUNT (CBC) WITH DIFF Routine 05/04/2024 9:30 AM PROCESS COORDINATOR Pneumonia, unspecified organism BASIC METABOLIC PANEL W/ CALCIUM TOTAL Routine 05/04/2024 9:30 AM PROCESS COORDINATOR Pneumonia, unspecified organism documented in this encounter Results * (ABNORMAL) CBC WITH AUTO DIFFERENTIAL (05/04/2024 9:30 AM PROCESS COORDINATOR) WBC 6.71 4.00 - 12.00 10(3)/mcL 05/04/2024 11:14 AM [facility] RBC 3.50(L) 3.80 - 5.30 10(6)/mcL 05/04/2024 11:14 AM [facility] HEMOGLOBIN (HGB) 12.5 12.0 - 15.8 g/dL 05/04/2024 11:14 AM [facility] HEMATOCRIT (HCT) 37.2 36.0 - 47.0 % 05/04/2024 11:14 AM [facility] MCV 106.3(H) 82.0 - 96.0 fL 05/04/2024 11:14 AM [facility] MCH 35.7(H) 26.0 - 34.0 pg 05/04/2024 11:14 AM [facility] MCHC 33.6 31.0 - 36.0 g/dL 05/04/2024 11:14 AM [facility] PLATELET COUNT 358 140 - 440 10(3)/mcL 05/04/2024 11:14 AM [facility] RDW 12.0 11.8 - 15.5 % 05/04/2024 11:14 AM [facility] MPV 9.5(L) 9.7 - 12.4 fL 05/04/2024 11:14 AM [facility] NEUTROPHILS 59.1 47.0 - 73.0 % 05/04/2024 11:14 AM [facility] LYMPHOCYTES 31.0 18.0 - 42.0 % 05/04/2024 11:14 AM [facility] MONOCYTES 9.5 4.0 - 12.0 % 05/04/2024 11:14 AM [facility] EOSINOPHILS 0.1 0.0 - 5.0 % 05/04/2024 11:14 AM [facility] BASOPHILS 0.3 0.0 - 1.0 % 05/04/2024 11:14 AM [facility] ABSOLUTE NEUTROPHILS 3.96 1.60 - 7.70 10(3)/mcL 05/04/2024 11:14 AM PROCESS COORDINATOR [facility] ABSOLUTE LYMPHOCYTES 2.08 1.30 - 3.20 10(3)/[facility] 05/04/2024 11:14 AM PROCESS COORDINATOR [facility] ABSOLUTE MONOCYTES 0.64 0.20 - 1.00 10(3)/mcL 05/04/2024 11:14 AM PROCESS COORDINATOR [facility] ABSOLUTE EOSINOPHIL 0.01 0.00 - 0.40 10(3)/mcL 05/04/2024 11:14 AM PROCESS COORDINATOR [facility] ABSOLUTE BASOPHILS 0.02 0.00 - 0.10 10(3)/[facility] 05/04/2024 11:14 AM PROCESS COORDINATOR [facility] NRBC PER 100 WBC 0 05/04/20 11:14 AM PROCESS COORDINATOR [facility] RESULTS ARE CONSISTENT WITH PERIPHERAL SMEAR REVIEW Yes 05/04/2024 11:14 AM PROCESS COORDINATOR [facility] RBC MORPHOLOGY CONSISTENT WITH INDICES Yes 05/04/2024 11:14 AM PROCESS COORDINATOR [facility] Blood No Phlebotomy Charged / Unknown 05/04/2024 9:30 AM PROCESS COORDINATOR 05/04/2024 10:31 AM PROCESS COORDINATOR us Liz Capellan DO HEMATOLOGY ORDERABLES Final R esult Performing Organization Address City/[facility]/ZIP Co de Phone Number [facility] #1 [place] [address] * THYROXINE (T4) TOTAL (05/04/2024 9:30 AM PROCESS COORDINATOR) T4 8.1 5.0 - 13.0 mcg/dL 05/04/2024 11:47 AM PROCESS COORDINATOR [facility] Blood No Phlebotomy Charged / Unknown 05/04/2024 9:30 AM PROCESS COORDINATOR 05/04/2024 10:31 AM PROCESS COORDINATOR us Liz L Marilia DO CHEMISTRY ORDERABLES Final Re sult [facility] #1 [place] [address] * (ABNORMAL) BASIC METABOLIC PANEL W/ CALCIUM TOTAL (05/04/2024 9:30 AM [facility]) SODIUM 132(L) 136 - 145 mmol/L 05/04/2024 11:27 AM [facility] POTASSIUM 4.2 3.5 - 5.1 mmol/L 05/04/2024 11:27 AM [facility] CHLORIDE 99 98 - 107 mmol/L 05/04/2024 11:27 AM [facility] CO2, VENOUS 27 22 - 30 mmol/L 05/04/2024 11:27 AM [facility] ANION GAP 10.2 <18.0 mmol/L 05/04/2024 11:27 AM [facility] GLUCOSE 80 70 - 99 mg/dL 05/04/2024 11:27 AM [facility] BUN 31(H) 10 - 20 mg/dL 05/04/2024 11:27 AM [facility] CREATININE, BLOOD 1.04(H) 0.60 - 1.00 mg/dL 05/04/2024 11:27 AM [facility] BUN/CREATININE RATIO 30(H) 12 - 20 ratio 05/04/2024 11:27 AM [facility] CALCIUM 9.0 8.7 - 10.5 mg/dL 05/04/2024 11:27 AM [facility] GFR, ESTIMATED 56(L) >=60 05/04/2024 11:27 AM [facility] Comment: Creatinine Clearance is the preferred criteria for selecting drug dose adjustments in renally impaired patients. The GFR is provided as additional pertinent clinical information. GFR is reported in mL/min/1.73 sq m. Calculation based on the Chronic Kidney Disease Epidemiology Collaboration (CKD- EPI) equation refit without adjustment for race. GFR, EST. >60 >=60 024 11:27 AM [facility] GFR, EST. NONAFRICAN 52(L) >=60 05/04/2024 11:27 AM PROCESS COORDINATOR [facility] Blood No Phlebotomy Charged / Unknown 05/04/2024 9:30 AM PROCESS COORDINATOR 05/04/2024 10:31 AM PROCESS COORDINATOR us Liz Capellan DO CHEMISTRY ORDERABLES Final Re sult [facility] #1 [place] [address] documented in this encounter Visit Diagnoses Diagnosis Pneumonia, unspecified organism documented in this encounter Additional Health Concerns Infection Onset Date Last Indicated Resolved Time Stenotrophomonas maltophilia Comment:Must have a follow up respiratory sample to remove isolation/infection flag. 10/20/2021 10/20/2021 Respiratory Rule-Out 07/24/2024 07/24/2024 025 2:29 PM PROCESS COORDINATOR COVID - 19 07/24/2024 07/24/2024 07/24/2024 2:29 PM PROCESS COORDINATOR COVID - 19 08/22/2024 08/22/2024 08/22/2024 11:4 6 PM CDT COVID - 19 09/03/2024 09/03/2024 09/03/2024 12:4 7 PM CDT Assessment Noted Time PHQ-9 Depression Total Score: 4 11/08/19 24 9:33 AM CDT documented as of this encounter Care Teams Chief Contract Officer Relationship Specialty Start Date End Date Liz Capellan DO 2 [facility] [address] [address] PCP - General Family Medicine 12/27/23 Quang Locke DO Gastroenterology 01/18/16 [place] [address] [address] 05/25/21 Werner Swift MD #2 [place] [address] Consulting Physician Pulmonary Disease 01/30/22 Yasmin Restrepo MD #[address] [address] Consulting Physician Endocrinology 07/20/24 Jose Do MD #[address] [address] Consulting Physician Colon and Rectal Surgery 10/12/24 documented as of this encounter
--- OUTSIDE RECORDS SUMMARY | 2024-12-02 13:23 | XMS_ITS | Encounter Summary ---
Author Organization [facility] Address [address] [place] [address] Phone Care Team Providers Care Engineering Professor Name Role Phone Quang Locke Unavailable [phone] Keith Craft MD Primary Care Provider [phone] Bri Rollins RN Unavailable Unavailable Silvio Schulte MD Unavailable [phone] Bri Rollins RN Unavailable Unavailable Werner Swift MD Unavailable Liz Capellan DO Primary Care Provider [phone] Yasmin Restrepo MD Unavailable Jose Do MD Unavailable Reason for Visit * Reason Comments Medication Refill Encounter Details Date Type Department Care Team (Late st Contact Info) Description 01/31/2022 Refill [facility] - [facility] #2 [place] [address] Keith Craft MD #1 [place] [address] Medication Refill Social History Tobacco Use Types [...] Type Provider Dept 11/03/21 Office Visit Keith Crfat MD [facility] 10/19/21 Office Visit Keith Craft MD [facility] 10/05/21 Office Visit Keith Craft MD [facility] 09/08/21 Office Visit Brie Denis, NICOLE [facility] 08/14/21 Office Visit Keith Craft MD [facility] 07/31/21 Office Visit Keith Craft MD [facility] 05/25/21 Office Visit Marcin Anderson, FOOT PRESS OPERATOR, INFANTRY WEAPONS OFFICER [facility] 05/05/21 Office Visit Brie Denis PAC [facility] 04/14[facility]21 [facility] 03/23/21 Office Visit Keith Craft MD [facility] Showing recent visits within past 365 days and meeting all other requirements Future Appointments Date Type Provider Dept 03/09/22 Appointment Keith Craft MD [facility] Showing future appointments within next 90 days and meeting all other requirements documented in this encounter Plan of Treatment Upcoming Encounters Date Type Department Care Team (Late st Contact Info) Description 12/04/2024 12:45 PM CDT Office Visit [facility] Medical [facility] - Family Medicine - [place] #2 [place] [address] Ana Vivar, REBECCA, INFANTRY WEAPONS OFFICER 2 [facility] [address] [place] [address] 12/09/2024 11:15 AM CDT Office Visit [facility] Medical [facility] - General Surgery - [place] #2 [facility] [address] [place] [address] Jose Do MD #2 [facility] [address] [place] [address] 01/04/2025 1:30 PM CDT Office Visit [facility] Medical [facility] - Pulmonology & Sleep Medicine - [place] #2 [facility] [place] [address] Werner Swift MD #2 [place] [address] 03/01/2025 1:30 PM CDT Office Visit [facility] Medical [facility] - Endocrinology - [place] #2 [place] [address] Yasmin Restrepo MD #[address] [facility] [address] [place] [address] 05/13/2025 1:20 PM FIXED ROUTE BUS OPERATOR Office Visit [facility] Family Medicine - [place] #2 [place] [address] Liz Capellan, DO 2 [facility] [address] [place] [address] documented as of this encounter Goals Goal [...] Zones/Action plan education. I will notify my Block Saw Operator if my symptoms fall in the [...] 19 04/20/2022 04/20/2022 04/30/2022 12:1 8 AM FIXED ROUTE BUS OPERATOR COVID - 19 07/18/2022 07/18/2022 07/28/2022 12:1 6 AM FIXED ROUTE BUS OPERATOR COVID - 19 08/21/2022 08/21/2022 08/22/2022 8:31 AM CDT Respiratory Rule Out - RPA 08/21/2022 08/21/2022 0 08/22/2022 3:21 PM CDT COVID - 19 04/18/2023 04/18/2023 04/28/2023 12:1 6 AM FIXED ROUTE BUS OPERATOR COVID - 19 07/13/2023 07/13/2023 07/23/2023 12:1 6 AM FIXED ROUTE BUS OPERATOR Respiratory Rule Out - RPA 03/17/2024 03/17/2024 1 3:36 PM CDT COVID - 19 04/27/2024 04/27/2024 04/27/2024 2:19 PM FIXED ROUTE BUS OPERATOR Respiratory Rule-Out 07/24/2024 07/24/2024 025 2:29 PM FIXED ROUTE BUS OPERATOR COVID - 19 07/24/2024 07/24/2024 07/24/2024 2:29 PM FIXED ROUTE BUS OPERATOR COVID - 19 08/22/2024 08/22/2024 08/22/2024 11:4 6 PM CDT COVID - 19 09/03/2024 09/03/2024 09/03/2024 12:4 7 PM CDT Assessment Noted Time PHQ-9 Depression Total Score: 1 03/07/20 21 10:29 AM CDT documented as of this encounter Care Teams Engineering Professor Relationship Specialty Start Date End Date Keith Craft MD PCP - General Family Medicine 01/14/19 12/26/23 Liz Capellan DO 2 [facility] [place] [address] PCP - General Family Medicine 12/27/23 Quang Locke DO Gastroenterology 01/18/16 Bri Rollins, KATEY [place] Block Saw Operator 03/07/21 05/22/23 [place] [address] [address] 05/25/21 Bri Rollins RN [place] Nurse Block Saw Operator 03/07/21 05/23/23 Werner [place] MD #2 [place] [address] Consulting Physician Pulmonary Disease 01/30/22 Yasmin Restrepo MD #[address] [facility] [address] [place] [address] Consulting Physician Endocrinology 07/20/24 Jose Do MD #[address] [address] Consulting Physician Colon and Rectal Surgery 10/12/24 documented as of this encounter
--- OUTSIDE RECORDS SUMMARY | 2024-12-02 13:23 | XMS_ITS | Encounter Summary ---
Author Organization [facility] Address [address] [place] [address] Phone Care Team Providers Care Kettle Fry Cook Operator Name Role Phone Quang Locke DO Unavailable [phone] Keith Craft MD Primary Care Provider [phone] Silvio Schulte MD Unavailable [phone] Werner Swift MD Unavailable Liz Capellan DO Primary Care Provider [phone] Yasmin Restrepo MD Unavailable Jose Do MD Unavailable Reason for Visit * Reason Comments Medication Refill Encounter Details Date Type Department Care Team (Late st Contact Info) Description 08/05/2023 Refill [facility] - [facility] #2 [place] [address] Keith Craft MD #1 [place] [address] Medication Refill Social History Tobacco Use Types Packs/Day Years Used Date Smoking Tobacco: Former Cigarettes 2 50 1 - 03/16/2018 Smokeless Tobacco: Never Comments:Still uses nictoine patches and gum Alcohol Use Standard Drinks/Week Comments No 0 (1 standard drink = 0.6 oz pur e alcohol) [facility] Utilities Answer Date Recorded In [...] often do you attend chur ch or baptism services? Never 07/13/2023 Do you belong to any clubs o r organizations such as caodaism groups, unions, fraternal or athletic groups, or [...] Total Score - Questions 1-9 0 08/2021 [facility] [place] of Occupat ional Health - Occupational Stress [...] Craft MD [facility] 04/12/23 Office Visit CraftKeith MD [facility] 12/10/22 Office Visit Keith [...] Status 12/17/2022 No Final ergocalciferol (VITAMIN D) 01452 UNIT Capsule [Pharmacy Med Name: VITAMIN D 61900GLD CAPSULE] 12 Capsule 0 Sig: TAKE ONE [...] Description 12/04/2024 12:45 PM CDT Office Visit [facility] - Family Medicine - [place] #2 [place] [address] Ana Vivar, STITCHER HAND, ONLINE MARKETING COORDINATOR 2 [facility]. 205 [place] [address] 12/09/2024 11:15 AM CDT Office Visit [facility] - General Surgery - [place] #2 [facility] [address] [place] [address] Jose Do MD #[address] [address] 01/04/2025 1:30 PM CDT Office Visit [facility] - Pulmonology & Sleep Medicine - [place] #2 [place] [address] Werner Swift MD #2 [place] [address] 03/01/2025 1:30 PM CDT Office Visit [facility] - Endocrinology - [place] #2 [place] [address] Yasmin Restrepo MD #[address] [address] 05/13/2025 1:20 PM PRECISION GRINDER EXTERNAL Office Visit [facility] Family Medicine - [place] #2 [place] [address] Liz Capellan, DO [address] [address] documented as of this encounter Goals Goal [...] Zones/Action plan education. I will notify my Savings Counselor if my symptoms fall in the y [...] - 19 04/27/2024 04/27/2024 04/27/2024 2:19 PM PRECISION GRINDER EXTERNAL Respiratory Rule-Out 07/24/2024 07/24/2024 025 2:29 PM PRECISION GRINDER EXTERNAL COVID - 19 07/24/2024 07/24/2024 07/24/2024 2:29 PM PRECISION GRINDER EXTERNAL COVID - 19 08/22/2024 08/22/2024 08/22/2024 11:4 6 PM CDT COVID - 19 09/03/2024 09/03/2024 09/03/2024 12:4 7 PM CDT Assessment Noted Time PHQ-9 Depression Total Score: 1 03/07/20 21 10:29 AM CDT documented as of this encounter Care Teams Kettle Fry Cook Operator Relationship Specialty Start Date End Date Keith Craft MD PCP - General Family Medicine 01/14/19 12/26/23 Liz Capellan DO 2 [facility] [place] [address] PCP - General Family Medicine 12/27/23 Quang Locke DO Gastroenterology 01/18/16 [place] [address] [address] 05/25/21 Werner Swift MD #2 [place] [address] Consulting Physician Pulmonary Disease 01/30/22 Yasmin Restrepo MD #[address] [address] Consulting Physician Endocrinology 07/20/24 Jose Do MD #[address] [address] Consulting Physician Colon and Rectal Surgery 10/12/24 documented as of this encounter
--- OUTSIDE RECORDS SUMMARY | 2024-12-02 13:23 | XMS_ITS | Encounter Summary ---
Author Organization [facility] Address [address] [place] [address] Phone Care Team Providers Care Cloth Coverer Name Role Phone Quang Locke DO Unavailable [phone] Keith Craft MD Primary Care Provider [phone] Silvio Schulte MD Unavailable [phone] Werner Swift MD Unavailable Liz Capellan DO Primary Care Provider [phone] Yasmin Restrepo MD Unavailable Jose Do MD Unavailable Reason for Visit * Reason Comments Medication Refill Encounter Details Date Type Department Care Team (Late st Contact Info) Description 07/17/2023 Refill [facility] [address] [place] [address] Keith Craft MD #1 [place] [address] Medication Refill Social History Tobacco Use Types [...] often do you attend chur ch or jain services? Never 07/13/2023 Do you belong to [...] Score - Questions 1-9 0 08/2021 [facility] [place] of Occupat ional Health - Occupational Stress [...] Kelin Nance RN - 07/17/2023 1:06 PM ENGINEERING PROGRAM ANALYST No protocol information Per nursing clinical judgement, provider to review and approve the medication(s) order(s) if appropriate. Requested Prescriptions Pending Prescriptions Disp Refills Basaglar KwikPen 100 UNIT/ML Solution Pen-injector [Pharmacy Med Name: BASAGLAR KWIKPEN 100UNIT SOLN PEN-INJ] 45 mL 4 Sig: INJECT 15 UNITS SUBCUTANEOUS DAILY There is no refill protocol information for this order NEERING PROGRAM ANALYST documented in this encounter Plan of Treatment Upcoming Encounters Date Type Department Care Team (Late st Contact Info) Description 12/04/2024 12:45 PM CDT Office Visit [facility] Family [facility] [place] #2 [place] [address] Ana Vivar, DENSITY CONTROL PUNCHER, FITNESS/WELLNESS DIRECTOR 2 [facility]. [address] [place] [address] 12/09/2024 11:15 AM CDT Office Visit [facility] General Surgery - [place] #2 [facility] [address] [place] [address] Jose Do MD #2 [facility] [address] [place] [address] 01/04/2025 1:30 PM CDT Office Visit [facility] Medical [facility] - Pulmonology & Sleep Medicine - [place] #2 [place] [address] Werner Swift MD #2 [place] [address] 03/01/2025 1:30 PM CDT Office Visit [facility] - Endocrinology - [place] #2 [place] [address] Yasmin Restrepo MD #[address] [place] [address] 05/13/2025 1:20 PM ENGINEERING PROGRAM ANALYST Office Visit [facility] Family [facility] [place] #2 [place] [address] Liz Capellan, DO 2 [facility]. [address] [place] [address] documented as of this encounter Goals Goal [...] Zones/Action plan education. I will notify my Cow Tester if my symptoms fall in the y ellow zone . I will consider receiving an influenza and pneumonia vaccination, if applicable. -I will call the office if I experience any symptoms listed above to discuss at home management options. documented as of this encounter Visit Diagnoses Diagnosis Type 2 diabetes mellitus with diabetic neuropathy, with long-term current use of insulin ([facility]) documented in this encounter Additional Health Concerns Infection Onset Date Last Indicated Resolved Time Stenotrophomonas maltophilia Comment:Must have a follow up respiratory sample to remove isolation/infection flag. 10/20/2021 10/20/2021 COVID - 19 07/13/2023 07/13/2023 07/23/2023 12:1 6 AM ENGINEERING PROGRAM ANALYST Respiratory Rule Out - RPA 03/17/2024 03/17/2024 1 3:36 PM CDT COVID - 19 04/27/2024 04/27/2024 04/27/2024 2:19 PM ENGINEERING PROGRAM ANALYST Respiratory Rule-Out 07/24/2024 07/24/2024 025 2:29 PM ENGINEERING PROGRAM ANALYST COVID - 19 07/24/2024 07/24/2024 07/24/2024 2:29 PM ENGINEERING PROGRAM ANALYST COVID - 19 08/22/2024 08/22/2024 08/22/2024 11:4 6 PM CDT COVID - 19 09/03/2024 09/03/2024 09/03/2024 12:4 7 PM CDT Assessment Noted Time PHQ-9 Depression Total Score: 1 03/07/20 21 10:29 AM CDT documented as of this encounter Care Teams Cloth Coverer Relationship Specialty Start Date End Date Keith Craft MD PCP - General Family Medicine 01/14/19 12/26/23 Liz Capellan DO [address] [address] PCP - General Family Medicine 12/27/23 Quang Locke DO Gastroenterology 01/18/16 [place] [address] [address] 05/25/21 Werner Swift MD #2 [place] [address] Consulting Physician Pulmonary Disease 01/30/22 Yasmin Restrepo MD #[address] [address] Consulting Physician Endocrinology 07/20/24 Jose Do MD #2 [place] [address] Consulting Physician Colon and Rectal Surgery 10/12/24 documented as of this encounter
--- OUTSIDE RECORDS SUMMARY | 2024-12-02 13:23 | XMS_ITS | Encounter Summary ---
Author Organization [facility] Address [address] [place] [address] Phone Care Team Providers Care Stove Bottom Worker Name Role Phone Quang Locke Oswaldo PRESLEY Unavailable [phone] Silvio Schulte MD Unavailable [phone] Werner Swift MD Unavailable Liz Capellan DO Primary Care Provider Yasmin Restrepo MD Unavailable Jose Do MD Unavailable Reason for Visit * Reason Onset Date Comments Medication Management 05/01/2024 Encounter Details Date Type Department Care Team (Late st Contact Info) Description 05/01/2024 Telephone [facility] [place] [facility] [address] [place] [address] Liz Capellan DO [address] [place] [address] Medication Management Social History Tobacco Use Types [...] declined 04/27/2024 How often do you attend gnosticism or mandaen serv ices? Patient declined 04/27/2024 Do you [...] Total Score - Questions 1-9 4 10/25 [facility] - Occupational Stress Questionnaire [...] in a fdc (including now)? No 07/13/2023 Housing Stability Vital [...] time in the past 12 m [facility], were you homeless or living in a fdc (including now)? Patient declined 04/27/2024 Education Answer [...] Grace Friedman, PT - 05/01/2024 9:47 PM FIELD REP S - Medication discrepancies B - Current [facility] patient resumption of care after a hospitalization completed on 05-01-24for SN and PT. A - Patient reports: Requests to add med (med/dose/route/frequency PRN reason) [id number]/phenyleephrine hcl 10mg, take 1 every 4 hours. R - Please review the above med discrepancies and update the medication list in EPIC to reflect theany changes. Notify Home Health when complete to facilitate patient education. D REP documented in this encounter Plan of Treatment Upcoming Encounters Date Type Department Care Team (Late st Contact Info) Description 12/04/2024 12:45 PM CDT Office Visit [facility] Medical [facility] - Family Medicine - [place] #2 [facility] [address] Ana Vivar, DATA CONTROL CLERK, QUARTZ ORIENTATOR 2 [facility]. [address] [place] [address] 12/09/2024 11:15 AM CDT Office Visit [facility] Medical [facility] - General Surgery - [place] #2 [facility] [address] [place] [address] Jose Do MD #2 [facility] [address] [place] [address] 01/04/2025 1:30 PM CDT Office Visit [facility] - Pulmonology & Sleep Medicine - [place] #2 [facility] [place] [address] Werner Swift MD #2 [facility] [address] 03/01/2025 1:30 PM CDT Office Visit [facility] Medical [facility] - Endocrinology - [place] #2 [facility] [place] [address] Yasmin Restrepo MD #[address] [facility] [address] [place] [phone] 05/13/2025 1:20 PM FIELD REP Office Visit [facility] [place] [facility] [place] [address] Liz Capellan, DO 2 . [address], [place]. [address] [place] [address] documented as of this encounter Goals Goal [...] Zones/Action plan education. I will notify my Truck Service Manager if my symptoms fall in the [...] Rule-Out 07/24/2024 07/24/2024 025 2:29 PM FIELD REP COVID - 19 07/24/2024 07/24/2024 07/24/2024 2:29 PM FIELD REP COVID - 19 08/22/2024 08/22/2024 08/22/2024 11:4 6 PM CDT COVID - 19 09/03/2024 09/03/2024 09/03/2024 12:4 7 PM CDT Assessment Noted Time PHQ-9 Depression Total Score: 4 11/08/19 24 9:33 AM CDT documented as of this encounter Care Teams Stove Bottom Worker Relationship Specialty Start Date End Date Liz Capellan DO [address] [address] PCP - General Family Medicine 12/27/23 Quang Locke DO Gastroenterology 01/18/16 [place] [address] [address] 05/25/21 Werner Swift MD #2 [place] [address] Consulting Physician Pulmonary Disease 01/30/22 Yasmin Restrepo MD #[address] [address] Consulting Physician Endocrinology 07/20/24 Jose Do MD #[address] [address] Consulting Physician Colon and Rectal Surgery 10/12/24 documented as of this encounter
--- OUTSIDE RECORDS SUMMARY | 2024-12-02 13:23 | XMS_ITS | Encounter Summary ---
Author Organization [facility] Address [address] [place] [address] Phone Care Team Providers Care Thread Separator Name Role Phone Quang Locke Unavailable [phone] Keith Craft MD Primary Care Provider [phone] Bri Rollins RN Unavailable Unavailable Slivio Schulte MD Unavailable [phone] Bri Rollins RN Unavailable Unavailable Werner Swift MD Unavailable Liz Capellan DO Primary Care Provider [phone] Yasmin Restrepo MD Unavailable Jose Do MD Unavailable Reason for Visit * Reason Comments Medication Refill Encounter Details Date Type Department Care Team (Late st Contact Info) Description 11/22/2021 [facility]ill [facility] Medical [address] [place] [address] Keith Craft MD #1 [place] [address] Medication Refill Social History Tobacco Use Types [...] Description 12/04/2024 12:45 PM CDT Office Visit [facility] Medical Group - Family Medicine - [place] #2 [place] [address] Ana Vivar, MAPPING ANALYST, MANAGER INFORMATION 2 [facility]. [address] [place] [address] 12/09/2024 11:15 AM CDT Office Visit [facility] - General Surgery - [place] #2 [facility] 305 [place] [address] Jose Do MD #2 [facility] [address] [place] [address] 01/04/2025 1:30 PM CDT Office Visit [facility] - Pulmonology & Sleep Medicine - [place] #2 [facility] [place] [address] Werner Swift MD #2 [place] [address] 03/01/2025 1:30 PM CDT Office Visit [facility] - Endocrinology - [place] #2 [facility] [place] [address] Yasmin Restrepo MD #2 [facility] [address] [place] [address] 05/13/2025 1:20 PM FARM OPERATOR Office Visit [facility] Family Medicine - [place] #2 [place] [address] Liz Capellan, DO 2 [facility] [address] [place] [address] documented as of this encounter Goals Goal [...] Zones/Action plan education. I will notify my Plant Ecologist if my symptoms fall in the y [...] 19 04/20/2022 04/20/2022 04/30/2022 12:1 8 AM FARM OPERATOR COVID - 19 07/18/2022 07/18/2022 07/28/2022 12:1 6 AM FARM OPERATOR COVID - 19 08/21/2022 08/21/2022 08/22/2022 8:31 AM CDT Respiratory Rule Out - RPA 08/21/2022 08/21/2022 0 08/22/2022 3:21 PM CDT COVID - 19 04/18/2023 04/18/2023 04/28/2023 12:1 6 AM FARM OPERATOR COVID - 19 07/13/2023 07/13/2023 07/23/2023 12:1 6 AM FARM OPERATOR Respiratory Rule Out - RPA 03/17/2024 03/17/2024 1 3:36 PM CDT COVID - 19 04/27/2024 04/27/2024 04/27/2024 2:19 PM FARM OPERATOR Respiratory Rule-Out 07/24/2024 07/24/2024 025 2:29 PM FARM OPERATOR COVID - 19 07/24/2024 07/24/2024 07/24/2024 2:29 PM FARM OPERATOR COVID - 19 08/22/2024 08/22/2024 08/22/2024 11:4 6 PM CDT COVID - 19 09/03/2024 09/03/2024 09/03/2024 12:4 7 PM CDT Assessment Noted Time PHQ-9 Depression Total Score: 1 03/07/20 21 10:29 AM CDT documented as of this encounter Care Teams Thread Separator Relationship Specialty Start Date End Date Keith Craft MD PCP - General Family Medicine 01/14/19 12/26/23 Liz Capellan DO 2 [facility] [address] [place] [address] PCP - General Family Medicine 12/27/23 Quang Locke DO Gastroenterology 01/18/16 Bri Rollins RN [place] Plant Ecologist 03/07/21 05/22/23 [place] [address] [address] 05/25/21 Bri Rollins, RN [place] Nurse Plant Ecologist 03/07/21 05/23/23 Werner Swift MD #2 [place] [address] Consulting Physician Pulmonary Disease 01/30/22 Yasmin Restrepo MD #[address] [address] Consulting Physician Endocrinology 07/20/24 Jose Do MD #[address] [address] Consulting Physician Colon and Rectal Surgery 10/12/24 documented as of this encounter
--- OUTSIDE RECORDS SUMMARY | 2024-12-02 13:23 | XMS_ITS | Encounter Summary ---
Author Organization [facility] Address [address] [place] [address] Phone Care Team Providers Care Sweeper Operator Highways Name Role Phone Quang Locke Unavailable [phone] Keith Craft MD Primary Care Provider [phone] Bri Rollins RN Unavailable Unavailable Silvio Schulte MD Unavailable [phone] Bri Rollins RN Unavailable Unavailable Werner Swift MD Unavailable Liz Capellan DO Primary Care Provider [phone] Yasmin Restrepo MD Unavailable Jose Do MD Unavailable Reason for Visit * Reason Comments Medication Refill Encounter Details Date Type Department Care Team (Late st Contact Info) Description 11/16/2021 Refill [facility] #2 [place] [address] Keith Craft MD #1 [place] [address] Medication Refill Social History Tobacco Use Types [...] Description 12/04/2024 12:45 PM CDT Office Visit [facility] Medical [facility] - Family Medicine [facility] #2 [place] [address] Ana Vivar, GLASS BLOWER, BOW STAPLER 2 [facility] [address] [place] [address] 12/09/2024 11:15 AM CDT Office Visit [facility] Medical [facility] - General Surgery - [place] #2 [facility] [address] [place] [address] Jose Do MD #2 [facility] [address] [place] [address] 01/04/2025 1:30 PM CDT Office Visit [facility] Medical [facility] - Pulmonology & Sleep Medicine [facility] #2 [place] [address] Werner Swift MD #2 [place] [address] 03/01/2025 1:30 PM CDT Office Visit [facility] Medical [facility] - Endocrinology - [place] #2 [place] [address] Yasmin Restrepo MD #2 [facility] [address] [place] [address] 05/13/2025 1:20 PM DOUBLE SURFACE OPERATOR Office Visit [facility] Family Medicine [facility] #2 [place] [address] Liz Capellan, DO 2 [facility]. [address] [place] [address] documented as of this encounter Goals Goal [...] Zones/Action plan education. I will notify my Shingler if my symptoms fall in the y [...] 19 04/20/2022 04/20/2022 04/30/2022 12:1 8 AM DOUBLE SURFACE OPERATOR COVID - 19 07/18/2022 07/18/2022 07/28/2022 12:1 6 AM DOUBLE SURFACE OPERATOR COVID - 19 08/21/2022 08/21/2022 08/22/2022 8:31 AM CDT Respiratory Rule Out - RPA 08/21/2022 08/21/2022 0 08/22/2022 3:21 PM CDT COVID - 19 04/18/2023 04/18/2023 04/28/2023 12:1 6 AM DOUBLE SURFACE OPERATOR COVID - 19 07/13/2023 07/13/2023 07/23/2023 12:1 6 AM DOUBLE SURFACE OPERATOR Respiratory Rule Out - RPA 03/17/2024 03/17/2024 1 3:36 PM CDT COVID - 19 04/27/2024 04/27/2024 04/27/2024 2:19 PM DOUBLE SURFACE OPERATOR Respiratory Rule-Out 07/24/2024 07/24/2024 025 2:29 PM DOUBLE SURFACE OPERATOR COVID - 19 07/24/2024 07/24/2024 07/24/2024 2:29 PM DOUBLE SURFACE OPERATOR COVID - 19 08/22/2024 08/22/2024 08/22/2024 11:4 6 PM CDT COVID - 19 09/03/2024 09/03/2024 09/03/2024 12:4 7 PM CDT Assessment Noted Time PHQ-9 Depression Total Score: 1 03/07/20 21 10:29 AM CDT documented as of this encounter Care Teams Sweeper Operator Highways Relationship Specialty Start Date End Date Keith Craft MD PCP - General Family Medicine 01/14/19 12/26/23 Liz Capellan DO 2 [facility] [address] [place] [address] PCP - General Family Medicine 12/27/23 Quang Locke DO Gastroenterology 01/18/16 Bri Rollins, RN [place] Shingler 03/07/21 05/22/23 [place] [address] [address] 05/25/21 Bri Rollins, RN [place] Nurse Shingler 03/07/21 05/23/23 Werner Swift MD #2 [place] [address] Consulting Physician Pulmonary Disease 01/30/22 Yasmin Restrepo MD #[address] [address] Consulting Physician Endocrinology 07/20/24 Jose Do MD #[address] [address] Consulting Physician Colon and Rectal Surgery 10/12/24 documented as of this encounter
--- OUTSIDE RECORDS SUMMARY | 2024-12-02 13:24 | XMS_ITS | Encounter Summary ---
Author Organization [facility] Address [address] [place] [address] Phone Care Team Providers Care Repairer Wood Furniture Name Role Phone Quang Locke Unavailable [phone] Keith Craft MD Primary Care Provider [phone] Bri Rollins RN Unavailable Unavailable Silvio Schulte MD Unavailable [phone] Bri Rollins RN Unavailable Unavailable Werner Swift MD Unavailable Liz Capellan DO Primary Care Provider [phone] Yasmin Restrepo MD Unavailable Jose Do MD Unavailable Reason for Visit * Reason Comments Medication Refill Encounter Details Date Type Department Care Team (Late st Contact Info) Description 01/04/2021 Refill [facility] - Family [facility] #2 [place] [address] Keith Craft MD #1 [place] [address] Medication Refill Social History Tobacco Use Types [...] Mehta RN - 01/04/2021 11:15 AM CDT [place] last fill date 12/05/20 Medication failed [...] Description 12/04/2024 12:45 PM CDT Office Visit [facility] - Family Medicine - [place] #2 [place] [address] Ana Vivar, WEASAND TRIMMER, RETAIL BRANCH MANAGER 2 [facility]. [address] [place] [address] 12/09/2024 11:15 AM CDT Office Visit [facility] - General Surgery - [place] #2 [facility] 305 [place] [address] Jose Do MD #2 [facility] [address] [place] [address] 01/04/2025 1:30 PM CDT Office Visit [facility] Medical [facility] - Pulmonology & Sleep Medicine - [place] #2 [facility] [address] Werner Swift MD #2 [place] [address] 03/01/2025 1:30 PM CDT Office Visit [facility] - Endocrinology - [place] #2 [facility] [address] Yasmin Restrepo MD #[address] [address] 05/13/2025 1:20 PM DICE TABLE PERSON Office Visit [facility] - Family Medicine - [place] #2 [place] [address] Liz Capellan, DO [address] [address] documented as of this encounter Visit Diagnoses Diagnosis Anxiety and depression Dysthymic disorder documented in this encounter Additional Health Concerns Infection Onset Date Last Indicated Resolved Time COVID - 19 01/25/2021 01/25/2021 01/31/2021 8:10 AM CDT Respiratory Rule Out - RPA 01/30/2021 01/30/2021 0 02/01/2021 12:45 AM CDT COVID - 19 07/23/2021 07/23/2021 07/24/2021 6:31 AM DICE TABLE PERSON COVID - 19 10/19/2021 10/19/2021 10/20/2021 7:45 AM CDT Respiratory Rule Out - RPA 10/19/2021 10/19/2021 0 10/20/2021 2:10 PM CDT Stenotrophomonas maltophilia Comment:Must have a follow up respiratory sample to remove isolation/infection flag. 10/20/2021 10/20/2021 COVID - 19 04/20/2022 04/20/2022 04/30/2022 12:1 8 AM DICE TABLE PERSON COVID - 19 07/18/2022 07/18/2022 07/28/2022 12:1 6 AM DICE TABLE PERSON COVID - 19 08/21/2022 08/21/2022 08/22/2022 8:31 AM CDT Respiratory Rule Out - RPA 08/21/2022 08/21/2022 0 08/22/2022 3:21 PM CDT COVID - 19 04/18/2023 04/18/2023 04/28/2023 12:1 6 AM DICE TABLE PERSON COVID - 19 07/13/2023 07/13/2023 07/23/2023 12:1 6 AM DICE TABLE PERSON Respiratory Rule Out - RPA 03/17/2024 03/17/2024 1 3:36 PM CDT COVID - 19 04/27/2024 04/27/2024 04/27/2024 2:19 PM DICE TABLE PERSON Respiratory Rule-Out 07/24/2024 07/24/2024 025 2:29 PM DICE TABLE PERSON COVID - 19 07/24/2024 07/24/2024 07/24/2024 2:29 PM DICE TABLE PERSON COVID - 19 08/22/2024 08/22/2024 08/22/2024 11:4 6 PM CDT COVID - 19 09/03/2024 09/03/2024 09/03/2024 12:4 7 PM CDT Assessment Noted Time PHQ-9 Depression Total Score: 2 06/07/19 21 2:34 PM DICE TABLE PERSON documented as of this encounter Care Teams Repairer Wood Furniture Relationship Specialty Start Date End Date Keith Craft MD PCP - General Family Medicine 01/14/19 12/26/23 Liz Capellan DO [address] [address] PCP - General Family Medicine 12/27/23 Quang Locke DO Gastroenterology 01/18/16 Bri Rollins, KATEY [place] Clinical Scientist 03/07/21 05/22/23 [place] [address] [address] 05/25/21 Bri Rollins, KATEY [place] Nurse Clinical Scientist 03/07/21 05/23/23 Werner Swift MD #2 [place] [address] Consulting Physician Pulmonary Disease 01/30/22 Yasmin Restrepo MD #[address] [address] Consulting Physician Endocrinology 07/20/24 Jose Do MD #[address] [id number] Consulting Physician Colon and Rectal Surgery 10/12/24 documented as of this encounter
--- OUTSIDE RECORDS SUMMARY | 2024-12-02 13:24 | XMS_ITS | Encounter Summary ---
Author Organization [facility] Address [address] [place] [address] Phone Care Team Providers Care Operation Specialist Name Role Phone Quang Locke Unavailable [phone] Keith Craft MD Primary Care Provider [phone] Bri Rollins RN Unavailable Unavailable Silvio Schulte MD Unavailable [phone] Bri Rollins RN Unavailable Unavailable Werner Swift MD Unavailable Liz Capellan DO Primary Care Provider [phone] Yasmin Restrepo MD Unavailable Jose Do MD Unavailable Reason for Visit * Reason Comments Medication Refill Encounter Details Date Type Department Care Team (Late st Contact Info) Description 12/25/2020 Refill [facility] Medical Group - Family Medicine [facility] #2 [place] [address] Keith Craft MD #1 [place] [address] Medication Refill Social History Tobacco Use Types [...] 12/04/2024 12:45 PM CDT Office Visit [facility] Medical [facility] - Family Medicine - [place] #2 [place] [address] Ana Vivar, CASH ANALYST, ROOFER HELPER 2 [facility]. 205 [place] [address] 12/09/2024 11:15 AM CDT Office Visit [facility] Medical [facility] - General Surgery - [place] #[address] [place] [address] Jose Do MD #[address] [place] [address] 01/04/2025 1:30 PM CDT Office Visit [facility] Medical [facility] - Pulmonology & Sleep Medicine - [place] #2 [facility] [place] [address] Werner Swift MD #2 [facility] [place] [address] 03/01/2025 1:30 PM CDT Office Visit [facility] - Endocrinology - [place] #2 [facility] [place] [address] Yasmin Restrepo MD #[address] [place] [address] 05/13/2025 1:20 PM CURING OVEN ATTENDANT Office Visit [facility] Family Medicine - [place] #[address] [facility] [place] [address] Liz Capellan, DO [address] [address] documented as of this encounter Visit Diagnoses Diagnosis Anxiety and depression Dysthymic disorder documented in this encounter Additional Health Concerns Infection Onset Date Last Indicated Resolved Time COVID - 19 01/25/2021 01/25/2021 01/31/2021 8:10 AM CDT Respiratory Rule Out - RPA 01/30/2021 01/30/2021 0 02/01/2021 12:45 AM CDT COVID - 19 07/23/2021 07/23/2021 07/24/2021 6:31 AM CURING OVEN ATTENDANT COVID - 19 10/19/2021 10/19/2021 10/20/2021 7:45 AM CDT Respiratory Rule Out - RPA 10/19/2021 10/19/2021 0 10/20/2021 2:10 PM CDT Stenotrophomonas maltophilia Comment:Must have a follow up respiratory sample to remove isolation/infection flag. 10/20/2021 10/20/2021 COVID - 19 04/20/2022 04/20/2022 04/30/2022 12:1 8 AM CURING OVEN ATTENDANT COVID - 19 07/18/2022 07/18/2022 07/28/2022 12:1 6 AM CURING OVEN ATTENDANT COVID - 19 08/21/2022 08/21/2022 08/22/2022 8:31 AM CDT Respiratory Rule Out - RPA 08/21/2022 08/21/2022 0 08/22/2022 3:21 PM CDT COVID - 19 04/18/2023 04/18/2023 04/28/2023 12:1 6 AM CURING OVEN ATTENDANT COVID - 19 07/13/2023 07/13/2023 07/23/2023 12:1 6 AM CURING OVEN ATTENDANT Respiratory Rule Out - RPA 03/17/2024 03/17/2024 1 3:36 PM CDT COVID - 19 04/27/2024 04/27/2024 04/27/2024 2:19 PM CURING OVEN ATTENDANT Respiratory Rule-Out 07/24/2024 07/24/2024 025 2:29 PM CURING OVEN ATTENDANT COVID - 19 07/24/2024 07/24/2024 07/24/2024 2:29 PM CURING OVEN ATTENDANT COVID - 19 08/22/2024 08/22/2024 08/22/2024 11:4 6 PM CDT COVID - 19 09/03/2024 09/03/2024 09/03/2024 12:4 7 PM CDT Assessment Noted Time PHQ-9 Depression Total Score: 2 06/07/19 21 2:34 PM CURING OVEN ATTENDANT documented as of this encounter Care Teams Operation Specialist Relationship Specialty Start Date End Date Keith Craft MD PCP - General Family Medicine 01/14/19 12/26/23 Liz Capellan DO [address] [address] PCP - General Family Medicine 12/27/23 Quang Locke DO Gastroenterology 01/18/16 Bri Rollins RN [place] Home Extension Agent 03/07/21 05/22/23 [place] [address] [address] 05/25/21 Bri Rollins RN [place] Nurse Home Extension Agent 03/07/21 05/23/23 Werner Swift MD #2 [place] [address] Consulting Physician Pulmonary Disease 01/30/22 Yasmin Restrepo MD #[address] [address] Consulting Physician Endocrinology 07/20/24 Jose Do MD #[address] [id number] Consulting Physician Colon and Rectal Surgery 10/12/24 documented as of this encounter
--- OUTSIDE RECORDS SUMMARY | 2024-12-02 13:24 | XMS_ITS | Encounter Summary ---
Author Organization [facility] Address [address] [place] [address] Phone Care Team Providers Care Bank Consultant Name Role Phone Quang Locke Unavailable [phone] Keith Craft MD Primary Care Provider [phone] Bri Rollins RN Unavailable Unavailable Silvio Schulte MD Unavailable [phone] Bri Rollins RN Unavailable Unavailable Werner Swift MD Unavailable Liz Capellan DO Primary Care Provider [phone] Yasmin Restrepo MD Unavailable Jose Do MD Unavailable Reason for Visit * Reason Comments Medication Refill Encounter Details Date Type Department Care Team (Late st Contact Info) Description 08/30/2022 Refill [facility] Medical Group - Family Medicine [facility] #2 [place] [address] Keith Craft MD #1 [place] [address] Medication Refill Social History Tobacco Use Types [...] Refills Insulin Pen Needle (UltiCare Mini Pen [place]) 31G X 6 MM Misc [Pharmacy Med Name: ULTICARE MINI PEN NEEDLES/31G X 6MM [id number] MISC] 300 Each 1 Sig: USE WITH INSULIN THREE (3) TIMES DAILY Diabetic Supplies Protocol Passed - 08/30/2022 9:45 AM Passed - Visit with relevant provider in past 6 months Recent Visits Date Type Provider Dept 07/18/22 Office Visit Kerri Kauffman, PARTS SALES REPRESENTATIVE, DEPARTMENT OF SOCIOLOGY CHAIR [facility] 06/07/22 Office Visit Keith Craft MD [facility] [place] 03/02/22 Procedure Visit [facility] DI[facility]ETIC RETINAL IMAGING [facility] 03/02/22 Office Visit Keith Craft MD [facility] Showing recent visits within past 182 days and meeting all other requirements Future Appointments Date Type Provider Dept 09/10/22 Appointment Keith Craft MD [facility] [place] Showing future appointments within next 90 [...] Dept 07/18/22 Office Visit Kerri Kauffman APRN, DEPARTMENT OF SOCIOLOGY CHAIR [facility] 06/07/22 Office Visit Keith Craft MD [facility] [place] 03/02/22 Procedure Visit [facility]22 [facility] 11/03/21 Office [facility] 10/19/21 Office Visit [facility] 10/05/21 Office Visit [facility] 09/08/21 Office Visit Brie Denis PAC [facility] Showing recent visits within past 365 days and meeting all other requirements Future Appointments Date Type Provider Dept 09/10/22 Appointment Keith Craft MD [facility] Showing future appointments within next 90 [...] Dept 07/18/22 Office Visit Kerri Kauffman APRN, DEPARTMENT OF SOCIOLOGY CHAIR [facility] 06/07/22 Office Visit Keith Craft MD [facility] 03/02/22 Procedure Visit ZAINA DIABETIC RETINAL IMAGING [facility] 03/02/22 Office Visit Keith Craft MD [facility] [place] 11/03/21 Office Visit Keith Craft MD [facility] [place] 10/19/21 Office Visit Keith Craft MD [facility] [place] 10/05/21 Office Visit Keith Craft MD [facility] 09/08/21 Office Visit Brie Denis PAC [facility] Showing recent visits within past 365 days and meeting all other requirements Future Appointments Date Type Provider Dept 09/10/22 Appointment Keith Craft MD [facility] Showing future appointments within next 90 days and meeting all other requirements documented in this encounter Plan of Treatment Upcoming Encounters Date Type Department Care Team (Late st Contact Info) Description 12/04/2024 12:45 PM CDT Office Visit [facility] - Family Medicine - [place] #2 [place] [address] Ana Vivar, PARTS SALES REPRESENTATIVE, DEPARTMENT OF SOCIOLOGY CHAIR 2 [facility] [address] [place] [address] 12/09/2024 11:15 AM CDT Office Visit [facility] - General Surgery - [place] #[address] [address] Jose Do MD #[address] [address] 01/04/2025 1:30 PM CDT Office Visit [facility] - Pulmonology & Sleep Medicine - [place] #2 [facility] [place] [address] Werner Swift MD #2 [place] [address] 03/01/2025 1:30 PM CDT Office Visit [facility] Medical [facility] - Endocrinology - [place] #2 [facility] [address] Yasmin Restrepo MD #2 [facility] [address] [place] [address] 05/13/2025 1:20 PM LINE SUPPLY Office Visit [facility] - Family Medicine - [place] #2 [place] [address] Liz Capellan, DO 2 [facility] [place]. [address] [place], [place] [id number] documented as of this encounter Goals Goal [...] Zones/Action plan education. I will notify my Sales Ambassador if my symptoms fall in the y [...] isolation/infection flag. 10/20/2021 10/20/2021 COVID - 19 04/18/2023 04/18/2023 04/28/2023 12:1 6 AM LINE SUPPLY COVID - 19 07/13/2023 07/13/2023 07/23/2023 12:1 6 AM LINE SUPPLY Respiratory Rule Out - RPA 03/17/2024 03/17/2024 1 3:36 PM CDT COVID - 19 04/27/2024 04/27/2024 04/27/2024 2:19 PM LINE SUPPLY Respiratory Rule-Out 07/24/2024 07/24/2024 025 2:29 PM LINE SUPPLY COVID - 19 07/24/2024 07/24/2024 07/24/2024 2:29 PM LINE SUPPLY COVID - 19 08/22/2024 08/22/2024 08/22/2024 11:4 6 PM CDT COVID - 19 09/03/2024 09/03/2024 09/03/2024 12:4 7 PM CDT Assessment Noted Time PHQ-9 Depression Total Score: 1 03/07/20 21 10:29 AM CDT documented as of this encounter Care Teams Bank Consultant Relationship Specialty Start Date End Date Keith Craft MD PCP - General Family Medicine 01/14/19 12/26/23 Liz Capellan DO [address] [address] PCP - General Family Medicine 12/27/23 Quang Locke DO Gastroenterology 01/18/16 Bri Rollins, RN [place] Sales Ambassador 03/07/21 05/22/23 [place] [id number] [address] 05/25/21 Bri Rollins RN [place] Nurse Sales Ambassador 03/07/21 05/23/23 Werner Swift MD #2 [place] [address] Consulting Physician Pulmonary Disease 01/30/22 Yasmin Restrepo MD #[address] [address] Consulting Physician Endocrinology 07/20/24 Jose Do MD #[address] [id number] Consulting Physician Colon and Rectal Surgery 10/12/24 documented as of this encounter
--- OUTSIDE RECORDS SUMMARY | 2024-12-02 13:24 | XMS_ITS | Encounter Summary ---
Author Organization [facility] Address [address] [place] [address] Phone Care Team Providers Care Bridge Manager Name Role Phone Quang Locke Unavailable [phone] Keith Craft MD Primary Care Provider [phone] Bri Rollins RN Unavailable Unavailable Silvio Schulte MD Unavailable [phone] Bri Rollins RN Unavailable Unavailable Werner Swift MD Unavailable Liz Capellan DO Primary Care Provider [phone] Yasmin Restrepo MD Unavailable Jose Do MD Unavailable Reason for Visit * Reason Comments Medication Refill Encounter Details Date Type Department Care Team (Late st Contact Info) Description 07/31/2022 Refill [facility] Medical Group - Family Medicine [facility] #2 [place] [address] Keith Craft MD #1 [place] [address] Medication Refill Social History Tobacco Use Types [...] Coronavirus/COVID-19? No / Unsure 07/18/2022 12:40 PM MANAGER CAREER documented as of this encounter Miscellaneous Notes [...] Provider Dept 07/18/22 Office Visit Kerri Kauffman, PROCESS DESIGN ENGINEER, DUSTLESS OPERATOR [facility] 06/07/22 Office Visit [facility] 03/02/22 Procedure Visit [facility] DIABETIC [facility]INAL IM[facility] 03/02/22 Office Visit Keith Craft MD [facility] 11/03/21 Office Visit Keith Craft MD [facility] 10/19/21 Office [facility] [place] 10/05/21 [facility]21 Office Visit Brie Denis MarieNICOLE [facility] 08/14/21 Office Visit Keith Craft MD [facility] 07/31/21 Office Visit Keith Craft MD [facility] Showing recent visits within past 365 days and meeting all other requirements Future Appointments Date Type Provider Dept 09/10/22 Appointment Keith Craft MD [facility] Showing future appointments within next 90 days and meeting all other requirements GER CAREER documented in this encounter Plan of Treatment Upcoming Encounters Date Type Department Care Team (Late st Contact Info) Description 12/04/2024 12:45 PM CDT Office Visit [facility] - Family Medicine - [place] [address]2 [place] [address] Ana Vivar, PROCESS DESIGN ENGINEER, DUSTLESS OPERATOR 2 [facility] [address] [place] [address] 12/09/2024 11:15 AM CDT Office Visit [facility] - General Surgery - [place] #2 [facility] [address] [place] [address] Jose Do MD #[address] [place] [address] 01/04/2025 1:30 PM CDT Office Visit [facility] - Pulmonology & Sleep Medicine - [place] #2 [facility] [address] Werner Swift MD #2 [place] [address] 03/01/2025 1:30 PM CDT Office Visit [facility] - Endocrinology - [place] #2 [place] [address] Yasmin Restrepo MD #2 [facility] [address] [place] [address] 05/13/2025 1:20 PM MANAGER CAREER Office Visit [facility] Family Medicine - [place] #[address] [place] [address] Liz Capellan, DO 2 [facility] [place] [facility]. [address] [place] [address] documented as of this encounter Goals Goal [...] plan education. I will notify my Inspector Missile if my symptoms fall in the y [...] isolation/infection flag. 10/20/2021 10/20/2021 COVID - 19 08/21/2022 08/21/2022 08/22/2022 8:31 AM CDT Respiratory Rule Out - RPA 08/21/2022 08/21/2022 0 08/22/2022 3:21 PM CDT COVID - 19 04/18/2023 04/18/2023 04/28/2023 12:1 6 AM MANAGER CAREER COVID - 19 07/13/2023 07/13/2023 07/23/2023 12:1 6 AM MANAGER CAREER Respiratory Rule Out - RPA 03/17/2024 03/17/2024 1 3:36 PM CDT COVID - 19 04/27/2024 04/27/2024 04/27/2024 2:19 PM MANAGER CAREER Respiratory Rule-Out 07/24/2024 07/24/2024 025 2:29 PM MANAGER CAREER COVID - 19 07/24/2024 07/24/2024 07/24/2024 2:29 PM MANAGER CAREER COVID - 19 08/22/2024 08/22/2024 08/22/2024 11:4 6 PM CDT COVID - 19 09/03/2024 09/03/2024 09/03/2024 12:4 7 PM CDT Assessment Noted Time PHQ-9 Depression Total Score: 1 03/07/20 21 10:29 AM CDT documented as of this encounter Care Teams Bridge Manager Relationship Specialty Start Date End Date Keith Craft MD PCP - General Family Medicine 01/14/19 12/26/23 Liz Capellan DO [address] [address] PCP - General Family Medicine 12/27/23 Quang Locke DO Gastroenterology 01/18/16 Bri Rollins, RN [place] Inspector Missile 03/07/21 05/22/23 [place] [address] [address] 05/25/21 Bri Rollins, KATEY [place] Nurse Inspector Missile 03/07/21 05/23/23 Werner Swift MD #2 [place] [address] Consulting Physician Pulmonary Disease 01/30/22 Yasmin Restrepo MD #[address] [address] Consulting Physician Endocrinology 07/20/24 Jose Do MD #[address] [address] Consulting Physician Colon and Rectal Surgery 10/12/24 documented as of this encounter
--- OUTSIDE RECORDS SUMMARY | 2024-12-02 13:24 | XMS_ITS | Encounter Summary ---
Author Organization [facility] Address [address] [place] [address] Phone Care Team Providers Care Commercial Estimator Name Role Phone Quang Locke Unavailable [phone] Keith Craft MD Primary Care Provider [phone] Bri Rollins RN Unavailable Unavailable Silvio Schulte MD Unavailable [phone] Bri Rollins RN Unavailable Unavailable Werner Swift MD Unavailable Liz Capellan DO Primary Care Provider [phone] Yasmin Restrepo MD Unavailable Jose Do MD Unavailable Reason for Visit * Reason Comments Medication Refill Encounter Details Date Type Department Care Team (Late st Contact Info) Description 03/08/2022 Refill [facility] #2 [place] [address] Keith Craft MD #1 [place] [address] Medication Refill Social History Tobacco Use Types [...] 03/02/22 Procedure Visit [facility]A DIABETIC RETINAL IMAGING [facility] 03/02/22 Office Visit Keith Craft MD [facility] [place] 11/03/21 Office Visit Keith Craft MD [facility] [place] 10/19/21 Office Visit Keith Craft MD [facility] [place] 10/05/21 Office Visit Keith Craft MD [facility] 09/08/21 Office Visit Brie Denis, NICOLE [facility] 08/14/21 Office Visit Keith Craft MD [facility] 07/31/21 Office Visit Keith Craft MD [facility] 05/25/21 Office Visit Marcin Anderson APRN, CASE THERAPIST [facility] 05/05/21 Office Visit Brie Denis PAC [facility] Showing recent visits within past 365 days and meeting all other requirements Future Appointments Date Type Provider Dept 06/04/22 Appointment Keith Craft MD [facility] Showing future appointments within next 90 days and meeting all other requirements documented in this encounter Plan of Treatment Upcoming Encounters Date Type Department Care Team (Late st Contact Info) Description 12/04/2024 12:45 PM CDT Office Visit [facility] Medical [facility] - Family Medicine - [place] #2 [place] [address] Aan Vivar, REBECCA, CASE THERAPIST 2 [facility] [address] [place] [address] 12/09/2024 11:15 AM CDT Office Visit [facility] Medical [facility] - General Surgery - [place] #[address] [address] Jose Do MD #[address] [address] 01/04/2025 1:30 PM CDT Office Visit [facility] Medical [facility] - Pulmonology & Sleep Medicine - [place] #2 [place] [address] Werner Swift MD #2 [place] [address] 03/01/2025 1:30 PM CDT Office Visit [facility] Medical [facility] - Endocrinology - [place] #2 [place] [address] Yasmin Restrepo MD #2 [facility] [address] [place] [address] 05/13/2025 1:20 PM FIRST AID TRAINER Office Visit [facility] Medical Group - [facility] - [place] #[address] [place] [address] Liz Capellan, DO 2 [facility] [place] [facility]. [address] [place] [address] documented as of this encounter Goals Goal [...] Zones/Action plan education. I will notify my Welding Machine Operator Arc if my symptoms fall in the y [...] 19 04/20/2022 04/20/2022 04/30/2022 12:1 8 AM FIRST AID TRAINER COVID - 19 07/18/2022 07/18/2022 07/28/2022 12:1 6 AM FIRST AID TRAINER COVID - 19 08/21/2022 08/21/2022 08/22/2022 8:31 AM CDT Respiratory Rule Out - RPA 08/21/2022 08/21/2022 0 08/22/2022 3:21 PM CDT COVID - 19 04/18/2023 04/18/2023 04/28/2023 12:1 6 AM FIRST AID TRAINER COVID - 19 07/13/2023 07/13/2023 07/23/2023 12:1 6 AM FIRST AID TRAINER Respiratory Rule Out - RPA 03/17/2024 03/17/2024 1 3:36 PM CDT COVID - 19 04/27/2024 04/27/2024 04/27/2024 2:19 PM FIRST AID TRAINER Respiratory Rule-Out 07/24/2024 07/24/2024 025 2:29 PM FIRST AID TRAINER COVID - 19 07/24/2024 07/24/2024 07/24/2024 2:29 PM FIRST AID TRAINER COVID - 19 08/22/2024 08/22/2024 08/22/2024 11:4 6 PM CDT COVID - 19 09/03/2024 09/03/2024 09/03/2024 12:4 7 PM CDT Assessment Noted Time PHQ-9 Depression Total Score: 1 03/07/20 21 10:29 AM CDT documented as of this encounter Care Teams Commercial Estimator Relationship Specialty Start Date End Date Keith Craft MD PCP - General Family Medicine 01/14/19 12/26/23 Liz Capellan DO 2 [facility] [place] [address] PCP - General Family Medicine 12/27/23 Quang Locke DO Gastroenterology 01/18/16 Bri Rollins, RN [place] Welding Machine Operator Arc 03/07/21 05/22/23 [place] [address] [address] 05/25/21 Bri Rollins, KATEY [place] Nurse Welding Machine Operator Arc 03/07/21 05/23/23 Werner Swift MD #2 [place] [address] Consulting Physician Pulmonary Disease 01/30/22 Yasmin Restrepo MD #[address] [address] Consulting Physician Endocrinology 07/20/24 Jose Do MD #[address] [address] Consulting Physician Colon and Rectal Surgery 10/12/24 documented as of this encounter
--- OUTSIDE RECORDS SUMMARY | 2024-12-02 13:24 | XMS_ITS | Encounter Summary ---
Author Organization [facility] Address [address] [place] [address] Phone Care Team Providers Care Heavy Equipment Sales Associate Name Role Phone Quang Locke Unavailable [phone] Keith Craft MD Primary Care Provider [phone] Bri Rollins RN Unavailable Unavailable Silvio Schulte MD Unavailable [phone] Bri Rollins RN Unavailable Unavailable Werner Swift MD Unavailable Liz Capellan DO Primary Care Provider [phone] Yasmin Restrepo MD Unavailable Jose Do MD Unavailable Reason for Visit * Reason Comments Medication Refill Encounter Details Date Type Department Care Team (Late st Contact Info) Description 02/05/2021 Refill [facility] #2 [place] [address] Keith Craft MD #1 [place] [address] Medication Refill Social History Tobacco Use Types [...] neuropathy, with long-term current use of insulin(HCC) [facility] - Family Medicine - Brie Castano PAC 3 weeks ago Chronic low back pain, unspecified back pain laterality, unspecified whether sciatica present [facility] - Family Medicine - Keith Jenkins MD 3 months ago Pneumonia of right upper lobe due to infectious organism [facility] - Family Medicine - Keith Jenkins MD 4 months ago Hypoglycemia [facility] - Family Medicine - Keith Jenkins MD 8 months ago Mixed hyperlipidemia [facility] - Family Medicine - Keith Jenkins MD Upcoming Appointments Future Appointments Tomorrow Keith Craft MD [facility] In 2 months eKith Craft MD [facility], [facility] REALTIME CAPTIONER - Recent and Past Visits Recent Visits Date Type Provider Dept 02/03/21 Office Visit Brie Denis, [facility] [place] 01/12/21 Office Visit Keith Craft, [facility] 10/12/20 Office Visit Keith Craft MD [facility] 10/04/20 Office Visit Keith Craft, [facility] 06/07/20 Office Visit Keith Craft MD [facility] 04/25/20 Office Visit Keith Craft MD [facility] 02/02/20 Office Visit Keith Craft MD [facility] Showing recent visits within past 460 days with a meds authorizing provider and meeting all other requirements Future Appointments Date Type Provider Dept 02/07/21 Appointment Keith Craft MD [facility] 04/14/21 Appointment Keith Craft MD [facility] [place] Showing future appointments within next 90 days with a meds authorizing provider and meeting all other requirements documented in this encounter Plan of Treatment Upcoming Encounters Date Type Department Care Team (Late st Contact Info) Description 12/04/2024 12:45 PM CDT Office Visit [facility] [place] #2 [place] [address] Ana Vivar, CROP INSURANCE CLAIMS ADJUSTER, ENTERTAINMENT PRODUCTION PROFESSIONAL [address] [address] 12/09/2024 11:15 AM CDT Office Visit [facility] General Surgery - [place] #[address] [place] [address] Jose Do MD #2 [facility] [address] [place] [address] 01/04/2025 1:30 PM CDT Office Visit [facility] - Pulmonology & Sleep Medicine - [place] #2 [place] [address] Werner Swift MD #2 [place] [address] 03/01/2025 1:30 PM CDT Office Visit [facility] - Endocrinology - [place] #2 [place] [address] Yasmin Restrepo MD #[address] [address] 05/13/2025 1:20 PM PINBALL MACHINE REPAIRER Office Visit [facility] Medical [facility] - Family Medicine - [place] #2 [place] [address] Liz Capellan, DO [address] [address] documented as of this encounter Visit Diagnoses Not on filedocumented in this encounter Additional Health Concerns Infection Onset Date Last Indicated Resolved Time COVID - 19 07/23/2021 07/23/2021 07/24/2021 6:31 AM PINBALL MACHINE REPAIRER COVID - 19 10/19/2021 10/19/2021 10/20/2021 7:45 AM CDT Respiratory Rule Out - RPA 10/19/2021 10/19/2021 0 10/20/2021 2:10 PM CDT Stenotrophomonas maltophilia Comment:Must have a follow up respiratory sample to remove isolation/infection flag. 10/20/2021 10/20/2021 COVID - 19 04/20/2022 04/20/2022 04/30/2022 12:1 8 AM PINBALL MACHINE REPAIRER COVID - 19 07/18/2022 07/18/2022 07/28/2022 12:1 6 AM PINBALL MACHINE REPAIRER COVID - 19 08/21/2022 08/21/2022 08/22/2022 8:31 AM CDT Respiratory Rule Out - RPA 08/21/2022 08/21/2022 0 08/22/2022 3:21 PM CDT COVID - 19 04/18/2023 04/18/2023 04/28/2023 12:1 6 AM PINBALL MACHINE REPAIRER COVID - 19 07/13/2023 07/13/2023 07/23/2023 12:1 6 AM PINBALL MACHINE REPAIRER Respiratory Rule Out - RPA 03/17/2024 03/17/2024 1 3:36 PM CDT COVID - 19 04/27/2024 04/27/2024 04/27/2024 2:19 PM PINBALL MACHINE REPAIRER Respiratory Rule-Out 07/24/2024 07/24/2024 025 2:29 PM PINBALL MACHINE REPAIRER COVID - 19 07/24/2024 07/24/2024 07/24/2024 2:29 PM PINBALL MACHINE REPAIRER COVID - 19 08/22/2024 08/22/2024 08/22/2024 11:4 6 PM CDT COVID - 19 09/03/2024 09/03/2024 09/03/2024 12:4 7 PM CDT Assessment Noted Time PHQ-9 Depression Total Score: 0 02/04/20 21 11:12 AM CDT documented as of this encounter Care Teams Heavy Equipment Sales Associate Relationship Specialty Start Date End Date Keith Craft MD PCP - General Family Medicine 01/14/19 12/26/23 Liz Capellan DO [address] [address] PCP - General Family Medicine 12/27/23 Quang Locke DO Gastroenterology 01/18/16 Bri Rollins, RN [place] Environmental Technician 03/07/21 05/22/23 [place] [address] [address] 05/25/21 Bri Rollins RN [place] Nurse Environmental Technician 03/07/21 05/23/23 Werner Swift MD #2 [place] [address] Consulting Physician Pulmonary Disease 01/30/22 Yasmin Restrepo MD #[address] [address] Consulting Physician Endocrinology 07/20/24 Jose Do MD #[address] [address] Consulting Physician Colon and Rectal Surgery 10/12/24 documented as of this encounter
--- OUTSIDE RECORDS SUMMARY | 2024-12-02 13:24 | XMS_ITS | Encounter Summary ---
Author Organization [facility] Address [address] [place] [address] Phone Care Team Providers Care Judicial Law Clerk Name Role Phone Quang Locke Unavailable [phone] Keith Craft MD Primary Care Provider [phone] Bri Rollins RN Unavailable Unavailable Silvio Schulte MD Unavailable [phone] Bri Rollins RN Unavailable Unavailable Werner Swift MD Unavailable Liz Capellan DO Primary Care Provider [phone] Yasmin Restrepo MD Unavailable Jose Do MD Unavailable Reason for Visit * Reason Comments Medication Refill Encounter Details Date Type Department Care Team (Late st Contact Info) Description 06/04/2022 Refill [facility] [place] [facility] Medical Group - Family Medicine [facility] #2 [place] [address] Keith Craft MD #1 [place] [address] Medication Refill Social History Tobacco Use Types [...] Coronavirus/COVID-19? No / Unsure 06/06/2022 2:21 PM BUFFERER documented as of this encounter Miscellaneous Notes * Telephone Encounter - Georgia Roblero RN - 06/04/2022 11:05 AM BUFFERER Medication failed the protocol, provider to review [...] 52 (L) >=60 Final ergocalciferol (VITAMIN D) 87778 UNIT Capsule [Pharmacy Med Name: VITAMIN D [id number] CAPSULE] 12 Capsule 0 Sig: TAKE ONE [...] Provider Dept 06/07/22 Appointment Keith Craft MD [facility] Showing future appointments within next 90 [...] MD [facility] 11/03/21 Office Visit Keith Cratf MD [facility] 10/19/21 Office Visit Keith Craft MD [facility] 10/05/21 Office Visit Keith Craft MD [facility] 09/08/21 Office Visit Brie Denis PAC [facility] 08/14/21 Office Visit Keith Craft MD [...] [facility] 03/02/22 Office Visit Keith Craft MD [facility] Showing recent visits within past 182 [...] 03/02/22 Procedure Visit [facility] 03/02/22 Office Visit Keith Craft MD [facility] 11/03/21 Office Visit eKith Craft MD [facility] 10/19/21 Office Visit [facility] 10/05/21 Office Visit Keith Craft MD [facility] 09/08/21 Office Visit Brie Denis, [facility] 08/14/21 Office Visit Keith [facility] MD [facility] 07/31/21 Office Visit Keith Craft MD [facility] Showing recent visits within past 365 days and meeting all other requirements Future Appointments Date Type Provider Dept 06/07/22 Appointment Keith Craft MD [facility] Showing future appointments within next 90 [...] 03/02/22 Procedure Visit [facility] 03/02/22 Office Visit Keith Craft MD [facility] 11/03/21 Office Visit Keiht Craft MD [facility] 10/19/21 Office Visit Keith Craft MD [facility] 10/05/21 Office Visit Keith Craft MD [facility] 09/08/21 Office Visit Brie Denis PAC [facility] 08/14/21 Office Visit Keith Craft MD [facility] 07/31/21 Office Visit Keith Craft MD [facility] Showing recent visits within past 365 days and meeting all other requirements Future Appointments Date Type Provider Dept 06/07/22 Appointment Keith Craft MD [facility] Showing future appointments within next 90 days and meeting all other requirements ERER documented in this encounter Plan of Treatment Upcoming Encounters Date Type Department Care Team (Late st Contact Info) Description 12/04/2024 12:45 PM CDT Office Visit [facility] [place] [facility] Medical [facility] Family Medicine - [place] #2 [place] [address] Ana Vivar, STATISTICAL PROGRAMMER ANALYST, HEAT TRANSFER TECHNICIAN 2 [facility] [address] [place] [address] 12/09/2024 11:15 AM CDT Office Visit [facility] - General Surgery - [place] #[address] [address] Jose Do MD #[address] [address] 01/04/2025 1:30 PM CDT Office Visit [facility] Medical [facility] - Pulmonology & Sleep Medicine - [place] #2 [facility] [place] [address] Werner Swift MD #2 [place] [address] 03/01/2025 1:30 PM CDT Office Visit [facility] - Endocrinology - [place] #2 [place] [address] Yasmin Restrepo MD #2 [facility] [address] [place] [address] 05/13/2025 1:20 PM BUFFERER Office Visit [facility] Family Medicine - [place] [address]2 [address] [facility] [place] [address] Liz Capellan, DO 2 [facility] [address] [place] [address] documented as of this encounter Goals Goal [...] Zones/Action plan education. I will notify my Sinter Machine Operator if my symptoms fall in [...] isolation/infection flag. 10/20/2021 10/20/2021 COVID - 19 07/18/2022 07/18/2022 07/28/2022 12:1 6 AM BUFFERER COVID - 19 08/21/2022 08/21/2022 08/22/2022 8:31 AM CDT Respiratory Rule Out - RPA 08/21/2022 08/21/2022 0 08/22/2022 3:21 PM CDT COVID - 19 04/18/2023 04/18/2023 04/28/2023 12:1 6 AM BUFFERER COVID - 19 07/13/2023 07/13/2023 07/23/2023 12:1 6 AM BUFFERER Respiratory Rule Out - RPA 03/17/2024 03/17/2024 1 3:36 PM CDT COVID - 19 04/27/2024 04/27/2024 04/27/2024 2:19 PM BUFFERER Respiratory Rule-Out 07/24/2024 07/24/2024 025 2:29 PM BUFFERER COVID - 19 07/24/2024 07/24/2024 07/24/2024 2:29 PM BUFFERER COVID - 19 08/22/2024 08/22/2024 08/22/2024 11:4 6 PM CDT COVID - 19 09/03/2024 09/03/2024 09/03/2024 12:4 7 PM CDT Assessment Noted Time PHQ-9 Depression Total Score: 1 03/07/20 21 10:29 AM CDT documented as of this encounter Care Teams Judicial Law Clerk Relationship Specialty Start Date End Date Keith Craft MD PCP - General Family Medicine 01/14/19 12/26/23 Liz Capellan DO [address] [facility] [facility] [address] [place] [address] PCP - General Family Medicine 12/27/23 Quang Locke DO Gastroenterology 01/18/16 Bri Rollins, KATEY [place] Sinter Machine Operator 03/07/21 05/22/23 [place] [id number] [address] 05/25/21 Bri Rollins RN [place] Nurse Sinter Machine Operator 03/07/21 05/23/23 Werner Swift MD #[address] [place] [address] Consulting Physician Pulmonary Disease 01/30/22 Yasmin Restrepo MD #[address] [phone] Consulting Physician Endocrinology 07/20/24 Jose Do MD #[address] [address] Consulting Physician Colon and Rectal Surgery 10/12/24 documented as of this encounter
--- OUTSIDE RECORDS SUMMARY | 2024-12-02 13:24 | XMS_ITS | Encounter Summary ---
Author Organization [facility] Address [address] [place] [address] Phone Care Team Providers Care Manager Architectural Name Role Phone Quang Locke Unavailable [phone] Keith Craft MD Primary Care Provider [phone] Bri Rollins RN Unavailable Unavailable Silvio Schulte MD Unavailable [phone] Bri Rollins RN Unavailable Unavailable Werner Swift MD Unavailable Liz Capellan DO Primary Care Provider [phone] Yasmin Restrepo MD Unavailable Jose Do MD Unavailable Reason for Visit * Reason Comments Medication Refill Encounter Details Date Type Department Care Team (Late st Contact Info) Description 01/05/2022 Refill [facility] Medical Group - Family Medicine [facility] #2 [place] [address] Keith Craft MD #1 [place] [address] Medication Refill Social History Tobacco Use Types [...] Tesfaye 09/08/21 Office Visit Brie Denis, NICOLE [facility] 08/14/21 Office Visit Keith Craft MD [facility] 07/31/21 Office Visit Keith Craft MD [facility] 05/25/21 Office Visit Marcin Anderson, CONCRETE HANDLER, CONTRACT SERVICEMAN [facility] 05/05/21 Office Visit Brie Denis PAC [facility] 04/14/21 [facility] 03/23[facility]21 Office Visit Keith Craft MD [facility] Showing recent visits within past 365 days and meeting all other requirements Future Appointments Date Type Provider Dept 03/09/22 Appointment Keith Craft MD [facility] Showing future appointments within next 90 days and meeting all other requirements documented in this encounter Plan of Treatment Upcoming Encounters Date Type Department Care Team (Late st Contact Info) Description 12/04/2024 12:45 PM CDT Office Visit [facility] Medical [facility] - Family Medicine - [place] #2 [facility] [place] [address] Ana Vivar, CONCRETE HANDLER, CONTRACT SERVICEMAN 2 [facility] [address] [place] [address] 12/09/2024 11:15 AM CDT Office Visit [facility] Medical [facility] - General Surgery - [place] #[address] [place] [address] Jose Do MD #[address] [place] [address] 01/04/2025 1:30 PM CDT Office Visit [facility] Medical Group - Pulmonology & Sleep Medicine - [place] #2 [facility] [place] [address] Werner Swift MD #2 [facility] [place] [place] [address] 03/01/2025 1:30 PM CDT Office Visit [facility] Medical [facility] - Endocrinology - [place] #2 [facility] [place] [address] Yasmin Restrepo MD #[address] [facility] [address] [place] [address] 05/13/2025 1:20 PM PRISONER CLASSIFICATION INTERVIEWER Office Visit [facility] Medical Group - Family Medicine - [place] #[address] [place] [address] Liz Capellan, DO [address] [facility] [address] [place] [address] documented as of this encounter Goals Goal [...] Zones/Action plan education. I will notify my Statistical Engineer if my symptoms fall in the [...] 19 04/20/2022 04/20/2022 04/30/2022 12:1 8 AM PRISONER CLASSIFICATION INTERVIEWER COVID - 19 07/18/2022 07/18/2022 07/28/2022 12:1 6 AM PRISONER CLASSIFICATION INTERVIEWER COVID - 19 08/21/2022 08/21/2022 08/22/2022 8:31 AM CDT Respiratory Rule Out - RPA 08/21/2022 08/21/2022 0 08/22/2022 3:21 PM CDT COVID - 19 04/18/2023 04/18/2023 04/28/2023 12:1 6 AM PRISONER CLASSIFICATION INTERVIEWER COVID - 19 07/13/2023 07/13/2023 07/23/2023 12:1 6 AM PRISONER CLASSIFICATION INTERVIEWER Respiratory Rule Out - RPA 03/17/2024 03/17/2024 1 3:36 PM CDT COVID - 19 04/27/2024 04/27/2024 04/27/2024 2:19 PM PRISONER CLASSIFICATION INTERVIEWER Respiratory Rule-Out 07/24/2024 07/24/2024 025 2:29 PM PRISONER CLASSIFICATION INTERVIEWER COVID - 19 07/24/2024 07/24/2024 07/24/2024 2:29 PM PRISONER CLASSIFICATION INTERVIEWER COVID - 19 08/22/2024 08/22/2024 08/22/2024 11:4 6 PM CDT COVID - 19 09/03/2024 09/03/2024 09/03/2024 12:4 7 PM CDT Assessment Noted Time PHQ-9 Depression Total Score: 1 03/07/20 21 10:29 AM CDT documented as of this encounter Care Teams Manager Architectural Relationship Specialty Start Date End Date Keith Craft MD PCP - General Family Medicine 01/14/19 12/26/23 Liz Capellan DO [address] [address] PCP - General Family Medicine 12/27/23 Quang Locke DO Gastroenterology 01/18/16 Bri Rollins, RN [place] Statistical Engineer 03/07/21 05/22/23 [place] [address] [address] 05/25/21 Bri Rollins, RN [place] Nurse Statistical Engineer 03/07/21 05/23/23 Werner Swift MD #2 [place] [address] Consulting Physician Pulmonary Disease 01/30/22 Yasmin Restrepo MD #[address] [phone] Consulting Physician Endocrinology 07/20/24 Jose Do MD #[address] [address] Consulting Physician Colon and Rectal Surgery 10/12/24 documented as of this encounter
--- OUTSIDE RECORDS SUMMARY | 2024-12-02 13:24 | XMS_ITS | Encounter Summary ---
Author Organization [facility] Address [address] [place] [address] Phone Care Team Providers Care Paste Mixer Name Role Phone Quang Locke DO Unavailable [phone] Keith Craft MD Primary Care Provider [phone] Silvio Schulte MD Unavailable [phone] Werner Swift MD Unavailable Liz Capellan DO Primary Care Provider [phone] Yasmin Restrepo MD Unavailable Jose Do MD Unavailable Reason for Visit * Reason Comments Medication Refill Encounter Details Date Type Department Care Team (Late st Contact Info) Description 08/12/2023 Refill [facility] #2 [place] [address] Keith Craft MD #1 [place] [address] Medication Refill Social History Tobacco Use Types Packs/Day Years Used Date Smoking Tobacco: Former Cigarettes 2 50 1 - 03/16/2018 Smokeless Tobacco: Never Comments:Still uses nictoine patches and gum Alcohol Use Standard Drinks/Week Comments No 0 (1 standard drink = 0.6 oz pur e alcohol) [facility] Utilities Answer Date Recorded In the [...] any clubs o r organizations such as taoism groups, unions, fraternal or athletic groups, or [...] Total Score - Questions 1-9 0 08/2021 [facility] Occupat ional [facility] - Occupational Stress [...] hopeless Not at all 08/15/2023 1:28 PM ALAINAT Heike Frankel MA * Over the past 2 weeks, [...] 325 MG-10 MG 45 0 15 , [facility]... OXYCODONE HCL-ACETAMINOPHEN 06/19/2023 06/18/2023 325 MG-10 MG 25 0 8 , [facility]... OXYCODONE HCL-ACETAMINOPHEN 06/13/2023 06/13/2023 325 MG-5 MG 45 0 15 , [facility]... Pt has been taking Oxycodone. documented in this encounter Plan of Treatment Upcoming Encounters Date Type Department Care Team (Late st Contact Info) Description 12/04/2024 12:45 PM CDT Office Visit [facility] Medical [facility] - Family Medicine - [place] #2 [place] [address] Ana Vivar, COMPLAINTS COORDINATOR, PEDIATRIC ANESTHESIOLOGIST 2 [facility]. [address] [place] [address] 12/09/2024 11:15 AM CDT Office Visit [facility] - General Surgery - [place] #[address] [address] Jose Do MD #2 [facility] [address] [place] [address] 01/04/2025 1:30 PM CDT [facility] - [place] #2 [place] [address] Werner Swift MD #2 [place] [address] 03/01/2025 1:30 PM CDT Office Visit [facility] - Endocrinology - [place] #2 [place] [address] Yasmin Restrepo MD #[address] [address] 05/13/2025 1:20 PM RADIOLOGY ORDERLY Office Visit [facility] Family Medicine [facility] #2 [place] [address] Liz Capellan, DO [address] [address] documented as of this encounter Goals Goal [...] Zones/Action plan education. I will notify my Brasswind Instrument Repairer if my symptoms fall in the [...] - 19 04/27/2024 04/27/2024 04/27/2024 2:19 PM RADIOLOGY ORDERLY Respiratory Rule-Out 07/24/2024 07/24/2024 025 2:29 PM RADIOLOGY ORDERLY COVID - 19 07/24/2024 07/24/2024 07/24/2024 2:29 PM RADIOLOGY ORDERLY COVID - 19 08/22/2024 08/22/2024 08/22/2024 11:4 6 PM CDT COVID - 19 09/03/2024 09/03/2024 09/03/2024 12:4 7 PM CDT Assessment Noted Time PHQ-9 Depression Total Score: 1 03/07/20 21 10:29 AM CDT documented as of this encounter Care Teams Paste Mixer Relationship Specialty Start Date End Date Keith Craft MD PCP - General Family Medicine 01/14/19 12/26/23 Liz Capellan DO 2 [facility] [address] [address] PCP - General Family Medicine 12/27/23 Quang Locke DO Gastroenterology 01/18/16 [place] [address] [address] 05/25/21 Werner Swift MD #2 [place] [address] Consulting Physician Pulmonary Disease 01/30/22 Yasmin Restrepo MD #[address] [address] Consulting Physician Endocrinology 07/20/24 Jose Do MD #[address] [address] Consulting Physician Colon and Rectal Surgery 10/12/24 documented as of this encounter
--- OUTSIDE RECORDS SUMMARY | 2024-12-02 13:24 | XMS_ITS | Encounter Summary ---
Author Organization [facility] Address [address] [place] [address] Phone Care Team Providers Care Regulation Supervisor Name Role Phone Quang Locke Unavailable [phone] Keith Craft MD Primary Care Provider [phone] Bri Rollins RN Unavailable Unavailable Silvio Schulte MD Unavailable [phone] Bri Rollins RN Unavailable Unavailable Werner Swift MD Unavailable Liz Capellan DO Primary Care Provider [phone] Yasmin Restrepo MD Unavailable Jose Do MD Unavailable Reason for Visit * Reason Comments Medication Refill Encounter Details Date Type Department Care Team (Late st Contact Info) Description 09/29/2020 Refill [facility] Medical Group - Family Medicine [facility] #2 [place] [address] Keith Craft MD #1 [place] [address] Medication Refill Social History Tobacco Use Types [...] ago Mixed hyperlipidemia [facility] Keith Lemus MD 5 months ago Pneumonia of right upper lobe due to infectious organism [facility] Keith Lemus MD 8 months ago Acute non-recurrent maxillary sinusitis [facility] Keith Lemus MD 11 months ago Chronic prescription opiate use [facility] Keith Lemus MD 1 year ago Coronary artery disease involving [place] coronary artery of [place] heart without angina pectoris [facility] Keith Lemus MD Upcoming Appointments Future Appointments In 4 days Keith Craft MD [facility] YULIA Mckeon ROTOR CASTING MACHINE OPERATOR - Recent and Past Visits [...] Office Visit [facility] - Family Medicine - [place] #2 [place] [address] Ana Vivar, BOX SPINNER, BASKET MENDER [address] [address] 12/09/2024 11:15 AM CDT Office Visit [facility] - General Surgery - [place] #[address] [address] Jose Do MD #[address] [address] 01/04/2025 1:30 PM CDT Office Visit [facility] - Pulmonology & Sleep Medicine - [place] #2 [place] [address] Werner Swift MD #2 [place] [address] 03/01/2025 1:30 PM CDT Office Visit [facility] Medical Group - Endocrinology - [place] #2 [place] [address] Yasmin Restrepo MD #2 [facility] [address] [place] [address] 05/13/2025 1:20 PM HEADHUNTER Office Visit [facility] - Family Medicine - [place] #2 [place] [address] Liz Capellan, DO 2 [facility]. [address] [place] [address] documented as of this encounter Visit Diagnoses Diagnosis Anxiety and depression Dysthymic disorder documented in this encounter Additional Health Concerns Infection Onset Date Last Indicated Resolved Time COVID - 19 01/25/2021 01/25/2021 01/31/2021 8:10 AM CDT Respiratory Rule Out - RPA 01/30/2021 01/30/2021 0 02/01/2021 12:45 AM CDT COVID - 19 07/23/2021 07/23/2021 07/24/2021 6:31 AM HEADHUNTER COVID - 19 10/19/2021 10/19/2021 10/20/2021 7:45 AM CDT Respiratory Rule Out - RPA 10/19/2021 10/19/2021 0 10/20/2021 2:10 PM CDT Stenotrophomonas maltophilia Comment:Must have a follow up respiratory sample to remove isolation/infection flag. 10/20/2021 10/20/2021 COVID - 19 04/20/2022 04/20/2022 04/30/2022 12:1 8 AM HEADHUNTER COVID - 19 07/18/2022 07/18/2022 07/28/2022 12:1 6 AM HEADHUNTER COVID - 19 08/21/2022 08/21/2022 08/22/2022 8:31 AM CDT Respiratory Rule Out - RPA 08/21/2022 08/21/2022 0 08/22/2022 3:21 PM CDT COVID - 19 04/18/2023 04/18/2023 04/28/2023 12:1 6 AM HEADHUNTER COVID - 19 07/13/2023 07/13/2023 07/23/2023 12:1 6 AM HEADHUNTER Respiratory Rule Out - RPA 03/17/2024 03/17/2024 1 3:36 PM CDT COVID - 19 04/27/2024 04/27/2024 04/27/2024 2:19 PM HEADHUNTER Respiratory Rule-Out 07/24/2024 07/24/2024 025 2:29 PM HEADHUNTER COVID - 19 07/24/2024 07/24/2024 07/24/2024 2:29 PM HEADHUNTER COVID - 19 08/22/2024 08/22/2024 08/22/2024 11:4 6 PM CDT COVID - 19 09/03/2024 09/03/2024 09/03/2024 12:4 7 PM CDT Assessment Noted Time PHQ-9 Depression Total Score: 2 06/07/19 2:34 PM HEADHUNTER documented as of this encounter Care Teams Regulation Supervisor Relationship Specialty Start Date End Date Keith Craft MD PCP - General Family Medicine 01/14/19 12/26/23 Liz Capellan DO [address] [address] PCP - General Family Medicine 12/27/23 Quang Locke DO Gastroenterology 01/18/16 Bri Rollins RN [place] Sql Ssrs Developer 03/07/21 05/22/23 [place] [address] [address] 05/25/21 Bri Rollins, RN [place] Nurse Sql Ssrs Developer 03/07/21 05/23/23 Werner Swift MD #2 [place] [address] Consulting Physician Pulmonary Disease 01/30/22 Yasmin Restrepo MD #[address] [address] Consulting Physician Endocrinology 07/20/24 Jose Do MD #[address] [address] Consulting Physician Colon and Rectal Surgery 10/12/24 documented as of this encounter
--- OUTSIDE RECORDS SUMMARY | 2024-12-02 13:24 | XMS_ITS | Encounter Summary ---
Author Organization [facility] Address [address] [place] [address] Phone Care Team Providers Care Contract Programmer Name Role Phone Quang Locke Oswaldo PRESLEY Unavailable [phone] Silvio Schulte MD Unavailable [phone] Werner Swift MD Unavailable Liz Capellan DO Primary Care Provider Yasmin Restrepo MD Unavailable Jose Do MD Unavailable Reason for Visit * Reason Onset Date Comments Advice Only 11/30/2024 Encounter Details Date Type Department Care Team (Late st Contact Info) Description 11/30/2024 Telephone [facility] [address] [place] [address] Liz Capellan DO [address] [facility] [address] [id number] Advice Only Social History Tobacco Use Types Packs/Day Years Used Date Smoking Tobacco: Former Cigarettes 2 50 1 - 03/16/2018 Smokeless Tobacco: Never Comments:Still uses nictoine patches and gum Alcohol Use Standard Drinks/Week Comments No 0 (1 standard drink = 0.6 oz pur e alcohol) [facility] Utilities Answer Date Recorded In the past 12 months has e electric, gas, oil, or water company threatened to shut off services in your home? Patient declined 10/05/2024 Social Connection and Isolation Panel Answer Date Recorded In a typical week, how many times do you talk on the phone with family, friends, or neighbors? Patient declined 10/05/2024 How often do you get togethe r with friends or relatives? Patient declined 10/05/2024 How often do you attend mosque or confucianist serv ices? Patient declined 10/05/2024 Do you belong to any clubs o r organizations such as mosque groups, unions, fraternal or athletic groups, or school groups? Patient declined 10/05/2024 How often do you attend meet ings of the clubs or organizations you belong to? Patient declined 10/05/2024 Are you , , di vorced, , never , or living with a partner? Patient declined 10/05/2024 AUDIT-C Answer Date Recorded Q1: How often do you have a drink containing alc ohol? Patient declined 10/05/2024 Q2: How many drinks containi ng alcohol do you have on a typical day when you are drinking? Patient declined 10/05/2024 Q3: How often do you have si x or more drinks on one occasion? Patient declined 10/05/2024 Overall Financial Resource Strain (CARDIA) Answe r Date Recorded How hard is it for you to pa y for the very basics like food, housing, medical care, and heating? Not hard at all 10/05/2024 PHQ-2 Answer Date Recorded Total Score - Questions 1-9 0 10/25 [facility] of Occupat ional Health - Occupational Stress Questionnaire Answer Date Recorded Do you feel stress - tense, restless, nervous, or anxious, or unable to sleep at night because your mind is troubled all the time - these days? Only a little 10/05/2024 Exercise Vital Sign Answer Date Recorde d On average, how many days pe r week do you engage in moderate to strenuous exercise (like a brisk walk)? 0 days 10/05/2024 On average, how many minutes do you engage in exercise at this level? 0 min 10/05/2024 Hunger Vital Sign Answer Date Recorded Within the past 12 months, y ou worried that your food would run out before you got the money to buy more. Never true 10/06/19 25 Within the past 12 months, t he food you bought just didn't last and you didn't have money to get more. Never true 10/05/2024 PRAPARE - Transportation Answer Date Re corded In the past 12 months, has l ack of transportation kept you from medical appointments or from getting medications? No 09/24 In the past 12 months, has l ack of transportation kept you from meetings, work, or from getting things needed for daily living? No 10/05/2024 Housing Stability Vital Sign Answer Richar e [...] place to sleep or slept in a residential (including now)? No 07/13/2023 Housing Stability Vital Sign Answer Richar e Recorded In the last 12 months, was t here a time when you were not able to pay the mortgage or rent on time? No 10/05/2024 In the past 12 months, how m any times have you moved where you were living? 1 10/05/2024 At any time in the past 12 m [facility], were you homeless or living in a residential (including now)? No 10/05/2024 Education Answer Date Recorded What is the [...] encounter Miscellaneous Notes * Telephone Encounter - Kimberli Galicia - 11/30/2024 11:33 AM CDT Symptoms: Urine Symptoms, Urination Pain Outcome: Transfer to monomer purification operator queue Reason: This is the only possible outcome for these symptoms The caller accepted this outcome. documented in this encounter Plan of Treatment Upcoming Encounters Date Type Department Care Team (Late st Contact Info) Description 12/04/2024 12:45 PM CDT Office Visit [facility] Family Medicine - [place] [address] [place] [address] Ana Vivar, COMPUTER NUMERICAL CONTROL MACHINIST, SOCIAL SERVICE MANAGER 2 [facility]. [address] [place] [address] 12/09/2024 11:15 AM CDT Office Visit [facility] General Surgery - [place] [address] [facility] [address] [place] [address] Jose Do MD #[address] [place] [address] 01/04/2025 1:30 PM CDT Office Visit [facility] Medical [facility] - Pulmonology & Sleep Medicine - [place] [address]2 [facility] [address] Werner Swift MD #2 [facility] [place] [address] 03/01/2025 1:30 PM CDT Office Visit [facility] - Endocrinology - [place] [address] [facility] [address] Yasmin Restrepo MD #2 [facility] [address] [place] [address] 05/13/2025 1:20 PM FIRER AUTOMATIC STOKER Office Visit [facility] - Family Medicine [facility] [address] [place] [address] Liz Capellan DO [address] [place] [address] documented as of this encounter Goals Goal [...] Zones/Action plan education. I will notify my Client Coordinator if my symptoms fall in the y ellow zone . I will consider receiving an influenza and pneumonia vaccination, if applicable. -I will call the office if I experience any symptoms listed above to discuss at home management options. Help patient manage COPD Care Plan MCCP COPD CONCERN No Liz Capellan, DO Help patient manage systolic heart failure Care Plan MCCP HEART FAILURE CONCERNS No Liz Capellan DO Help patients manage type 2 diabetes Care Plan MCCP TYPE 2 DIABETES CONCERN No Liz Capellan DO Help patient manage blood glucose Care Plan MCCP TYPE 2 DIABETES INSULIN - ANALOG PATTERN CONCERN No Liz Capellan DO documented as of this encounter Visit Diagnoses Not on filedocumented in this encounter Additional Health Concerns Active Problems Noted Date Diagnosed Date MCCP COPD CONCERN 11/09/2024 MCCP HEART FAILURE CONCERNS 11/09/2024 MCCP TYPE 2 DIABETES CONCERN 11/09/2024 MCCP TYPE 2 DIABETES INSULIN - ANALOG PATTERN CO NCERN 11/09/2024 Infection Onset Date Last Indicated Resolved Time Stenotrophomonas maltophilia Comment:Must have a follow up respiratory sample to remove isolation/infection flag. 10/20/2021 10/20/2021 Assessment Noted Time PHQ-9 Depression Total Score: 0 11/10/19 11:00 AM CDT documented as of this encounter Care Teams Contract Programmer Relationship Specialty Start Date End Date Liz Capellan DO 2 [facility] [address] [place], [place] [id number] PCP - General Family Medicine 12/27/23 Quang Locke DO Gastroenterology 01/18/16 [place] [address] [address] 05/25/21 Werner Swift MD #2 [place] [address] Consulting Physician Pulmonary Disease 01/30/22 Yasmin Restrepo MD #2 [facility] [address] [place] [address] Consulting Physician Endocrinology 07/20/24 Jose Do MD #[address] [address] Consulting Physician Colon and Rectal Surgery 10/12/24 documented as of this encounter
--- OUTSIDE RECORDS SUMMARY | 2024-12-02 13:24 | XMS_ITS | Encounter Summary ---
Author Organization [facility] Address [address] [place] [address] Phone Care Team Providers Care Business Development Analyst Name Role Phone Quang Locke Unavailable [phone] Keith Craft MD Primary Care Provider [phone] Bri Rollins RN Unavailable Unavailable Silvio Schulte MD Unavailable Bri Rollins RN Unavailable Unavailable Werner Swift MD Unavailable Liz Capellan DO Primary Care Provider [phone] Yasmin Restrepo MD Unavailable Jose Do MD Unavailable Reason for Visit * Reason Comments Medication Refill Encounter Details Date Type Department Care Team (Late st Contact Info) Description 08/30/2020 Refill [facility] Medical Group - Family Medicine [facility] [address] [place] [address] Keith Craft MD #[address] [place] [address] Medication Refill Social History Tobacco Use Types [...] Outpatient Visits 2 months ago Mixed hyperlipidemia [facility] Family [facility] Keith Lemus MD 4 months ago Pneumonia of right upper lobe due to infectious organism [facility] Keith Lemus MD 7 months ago Acute non-recurrent maxillary sinusitis [facility] Keith Lemus MD 10 months ago Chronic prescription opiate use [facility] Keith Lemus MD 1 year ago Coronary artery disease involving [place] coronary artery of [place] heart without angina pectoris [facility] Keith Lemus MD Upcoming Appointments Future Appointments In 1 month Keith Craft MD [facility] Maximiliano Tesf[facility] CERTIFIED REGISTERED DENTAL ASSISTANT - Recent and Past Visits Recent Visits Date Type Provider Dept 06/07/20 Office Visit Keith Craft MD [facility] 04/25/20 Office Visit Keith Craft MD [facility] 02/02/20 Office Visit Keith Craft MD [facility] 11/02/19 Office Visit Keith Craft MD [facility] 07/27/19 Office Visit Keith Craft MD [facility] 06/10/19 [facility] Show[facility] recent visits within past 460 [...] Description 12/04/2024 12:45 PM CDT Office Visit [facility] - Family Medicine - [place] [address] [place] [address] Ana Vivar APRN, GRAINING OPERATOR 2 [facility] [address] [place] [address] 12/09/2024 11:15 AM CDT Office Visit [facility] Medical [facility] - General Surgery - [place] #2 [facility] [address] [place] [address] Jose Do MD #2 [facility] [address] [place] [address] 01/04/2025 1:30 PM CDT Office Visit [facility] - Pulmonology & Sleep Medicine - [place] [address]2 [place] [address] Werner Swift MD #2 [facility] [place] [address] 03/01/2025 1:30 PM CDT Office Visit [facility] Medical [facility] - Endocrinology - [place] [address]2 [place] [address] Yasmin Restrepo MD #2 [facility] [address] [place] [address] 05/13/2025 1:20 PM FIELD CASHIER Office Visit [facility] - Family Medicine - [place] #[address] [facility] [address] Liz Capellan, DO 2 [facility] [address] [place] [address] documented as of this encounter Visit Diagnoses Diagnosis Anxiety and depression Dysthymic disorder documented in this encounter Additional Health Concerns Infection Onset Date Last Indicated Resolved Time COVID - 19 01/25/2021 01/25/2021 01/31/2021 8:10 AM CDT Respiratory Rule Out - RPA 01/30/2021 01/30/2021 0 02/01/2021 12:45 AM CDT COVID - 19 07/23/2021 07/23/2021 07/24/2021 6:31 AM FIELD CASHIER COVID - 19 10/19/2021 10/19/2021 10/20/2021 7:45 AM CDT Respiratory Rule Out - RPA 10/19/2021 10/19/2021 0 10/20/2021 2:10 PM CDT Stenotrophomonas maltophilia Comment:Must have a follow up respiratory sample to remove isolation/infection flag. 10/20/2021 10/20/2021 COVID - 19 04/20/2022 04/20/2022 04/30/2022 12:1 8 AM FIELD CASHIER COVID - 19 07/18/2022 07/18/2022 07/28/2022 12:1 6 AM FIELD CASHIER COVID - 19 08/21/2022 08/21/2022 08/22/2022 8:31 AM CDT Respiratory Rule Out - RPA 08/21/2022 08/21/2022 0 08/22/2022 3:21 PM CDT COVID - 19 04/18/2023 04/18/2023 04/28/2023 12:1 6 AM FIELD CASHIER COVID - 19 07/13/2023 07/13/2023 07/23/2023 12:1 6 AM FIELD CASHIER Respiratory Rule Out - RPA 03/17/2024 03/17/2024 1 3:36 PM CDT COVID - 19 04/27/2024 04/27/2024 04/27/2024 2:19 PM FIELD CASHIER Respiratory Rule-Out 07/24/2024 07/24/2024 2:29 PM FIELD CASHIER COVID - 19 07/24/2024 07/24/2024 07/24/2024 2:29 PM FIELD CASHIER COVID - 19 08/22/2024 08/22/2024 08/22/2024 11:4 6 PM CDT COVID - 19 09/03/2024 09/03/2024 09/03/2024 12:4 7 PM CDT Assessment Noted Time PHQ-9 Depression Total Score: 2 06/07/19 21 2:34 PM FIELD CASHIER documented as of this encounter Care Teams Business Development Analyst Relationship Specialty Start Date End Date Keith Craft MD PCP - General Family Medicine 01/14/19 12/26/23 Liz Capellan DO [address] [address] PCP - General Family Medicine 12/27/23 Quang Locke DO Gastroenterology 01/18/16 Bri Rollins RN [place] Chemical Treatment Operator 03/07/21 05/22/23 [place] [address] [place] [address] 05/25/21 Bri Rollins, RN [place] Nurse Chemical Treatment Operator 03/07/21 05/23/23 Werner Swift MD #[address] [place] [address] Consulting Physician Pulmonary Disease 01/30/22 Yasmin Restrepo MD #[address] [address] Consulting Physician Endocrinology 07/20/24 Jose Do MD #[address] [address] Consulting Physician Colon and Rectal Surgery 10/12/24 documented as of this encounter
--- OUTSIDE RECORDS SUMMARY | 2024-12-02 13:24 | XMS_ITS | Encounter Summary ---
Author Organization [facility] Address [address] [place] [address] Phone Care Team Providers Care Network Analyst Name Role Phone Quang Locke Unavailable [phone] Keith Craft MD Primary Care Provider [phone] Bri Rollins RN Unavailable Unavailable Silvio Schulte MD Unavailable Bri Rollins RN Unavailable Unavailable Werner Swift MD Unavailable Liz Capellan DO Primary Care Provider [phone] Yasmin Restrepo MD Unavailable Jose Do MD Unavailable Reason for Visit * Reason Comments Medication Refill Encounter Details Date Type Department Care Team (Late st Contact Info) Description 07/09/2022 Refill [facility] - Family Medicine [facility] [place] [address] Keith Craft MD #[address] [place] [address] Medication Refill Social History Tobacco Use Types [...] Georgia Roblero RN - 07/09/2022 11:01 AM FRUIT EXPRESS AGENT Medication failed the protocol, provider to review [...] Procedure Visit [facility] [place] 03/02/22 Office Visit Keith Craft MD [facility] 11/03/21 Office Visit Keith Craft MD [facility] 10/19/21 Office Visit Keith Craft MD [facility] 10/05/21 Office Visit Keith Craft MD [facility] 09/08/21 Office Visit Brie Denis, PAC [facility] 08/14/21 Office Visit Keith Craft MD [facility] 07/31/21 Office Visit Keith Craft MD [facility] Showing recent visits within past 365 days and meeting all other requirements Future Appointments Date Type Provider Dept 09/10/22 Appointment Kieth Craft MD [facility] Showing future appointments [...] 03/02/22 Procedure [facility] Office Visit Keith Craft MD [facility] 11/03/21 Office Visit Keith Craft MD [facility] 10/19/21 Office Visit Keith Craft MD [facility] 10/05/21 Office Visit Keith Craft MD [facility] 09/08/21 Office Visit Brie Denis, PAC [facility] 08/14/21 Office Visit Keith Craft MD [facility] 07/31/21 Office Visit Keith Craft MD [facility] Showing recent visits within past 365 days and meeting all other requirements Future Appointments Date Type Provider Dept 09/10/22 Appointment Keith Craft MD [facility] Showing future appointments within next 90 days and meeting all other requirements T EXPRESS AGENT documented in this encounter Plan of Treatment Upcoming Encounters Date Type Department Care Team (Late st Contact Info) Description 12/04/2024 12:45 PM CDT Office Visit [facility] - Family Medicine - [place] [address] [place] [address] Ana Vivar, PATTERN HANGER, SNOW RANGER 2 [facility] [address] [place] [address] 12/09/2024 11:15 AM CDT Office Visit [facility] - General Surgery - [place] #[address] [place] [address] Jose Do MD #[address] [place] [address] 01/04/2025 1:30 PM CDT Office Visit [facility] - Pulmonology & Sleep Medicine - [place] [address]2 [place] [address] Werner Swift MD #2 [place] [address] 03/01/2025 1:30 PM CDT Office Visit [facility] - Endocrinology - [place] #2 [place] [address] Yasmin Restrepo MD #[address] [place] [address] 05/13/2025 1:20 PM FRUIT EXPRESS AGENT Office Visit [facility] - Family Medicine - [place] #2 [facility] [place] [address] Liz Capellan, DO 2 [facility] [address] [place] [address] documented as of this encounter Goals Goal [...] Zones/Action plan education. I will notify my Corporate Aircraft Mechanic if my symptoms fall in the [...] 19 07/18/2022 07/18/2022 07/28/2022 12:1 6 AM FRUIT EXPRESS AGENT COVID - 19 08/21/2022 08/21/2022 08/22/2022 8:31 AM CDT Respiratory Rule Out - RPA 08/21/2022 08/21/2022 0 08/22/2022 3:21 PM CDT COVID - 19 04/18/2023 04/18/2023 04/28/2023 12:1 6 AM FRUIT EXPRESS AGENT COVID - 19 07/13/2023 07/13/2023 07/23/2023 12:1 6 AM FRUIT EXPRESS AGENT Respiratory Rule Out - RPA 03/17/2024 03/17/2024 1 3:36 PM CDT COVID - 19 04/27/2024 04/27/2024 04/27/2024 2:19 PM FRUIT EXPRESS AGENT Respiratory Rule-Out 07/24/2024 07/24/2024 025 2:29 PM FRUIT EXPRESS AGENT COVID - 19 07/24/2024 07/24/2024 07/24/2024 2:29 PM FRUIT EXPRESS AGENT COVID - 19 08/22/2024 08/22/2024 08/22/2024 11:4 6 PM CDT COVID - 19 09/03/2024 09/03/2024 09/03/2024 12:4 7 PM CDT Assessment Noted Time PHQ-9 Depression Total Score: 1 03/07/20 10:29 AM CDT documented as of this encounter Care Teams Network Analyst Relationship Specialty Start Date End Date Keith Craft MD PCP - General Family Medicine 01/14/19 12/26/23 Liz Capellan DO [address] [address] PCP - General Family Medicine 12/27/23 Quang Locke DO Gastroenterology 01/18/16 Bri Rollins RN [place] Corporate Aircraft Mechanic 03/07/21 05/22/23 [place] [address] [address] 05/25/21 Bri Rollins RN [place] Nurse Corporate Aircraft Mechanic 03/07/21 05/23/23 Werner Swift MD #2 [place] [address] Consulting Physician Pulmonary Disease 01/30/22 Yasmin Restrepo MD #[address] [address] Consulting Physician Endocrinology 07/20/24 Jose Do MD #[address] [address] Consulting Physician Colon and Rectal Surgery 10/12/24 documented as of this encounter
--- OUTSIDE RECORDS SUMMARY | 2024-12-02 13:24 | XMS_ITS | Encounter Summary ---
Author Organization [facility] Address [address] [place] [address] Phone Care Team Providers Care Data Communications Software Consultant Name Role Phone Quang Locke Unavailable [phone] Keith Craft MD Primary Care Provider [phone] Bri Rollins RN Unavailable Unavailable Silvio Schulte MD Unavailable [phone] Bri Rollins RN Unavailable Unavailable Werner Swift MD Unavailable Liz Capellan DO Primary Care Provider [phone] Yasmin Restrepo MD Unavailable Jose Do MD Unavailable Reason for Visit * Reason Comments Medication Refill Encounter Details Date Type Department Care Team (Late st Contact Info) Description 12/13/2021 Refill [facility] #2 [place] [address] Keith Craft MD #1 [place] [address] Medication Refill Social History Tobacco Use Types [...] Final Insulin Pen Needle (UltiCare Mini Pen [place]) 31G X 6 MM Misc [Pharmacy Med Name: ULTICARE MINI PEN NEEDLES/31G X 6MM [id number] MISC] 300 Each 1 Sig: USE WITH [...] [place] 07/31/21 Office Visit Keith Craft MD [facility] Showing recent visits within past 182 days and meeting all other requirements Future Appointments Date Type Provider Dept 03/09/22 Appointment Keith [facility] MD [facility] Showing future appointments within next 90 days and meeting all other requirements documented in this encounter Plan of Treatment Upcoming Encounters Date Type Department Care Team (Late st Contact Info) Description 12/04/2024 12:45 PM CDT Office Visit [facility] - Family Medicine - [place] [address]2 [place] [address] Ana Vivar, COMSEC MANAGER, CAFE WORKER [address] [place] [address] 12/09/2024 11:15 AM CDT Office Visit [facility] - General Surgery - [place] #2 [facility] [address] [place] [address] Jose Do MD #[address] [place] [address] 01/04/2025 1:30 PM CDT Office Visit [facility] - Pulmonology & Sleep Medicine - [place] #2 [place] [address] Werner Swift MD #2 [place] [address] 03/01/2025 1:30 PM CDT Office Visit [facility] - Endocrinology - [place] #2 [place] [address] Yasmin Restrepo MD #[address] [place] [address] 05/13/2025 1:20 PM FOOD AND BEVERAGE SERVICE MANAGER Office Visit [facility] - Family [facility] - [place] [address] [place] [address] Liz Capellan, DO [address], [address] [place] [address] documented as of this encounter Goals Goal [...] Zones/Action plan education. I will notify my Hospital Carrier if my symptoms fall in the y ellow zone . I will consider receiving an influenza and pneumonia vaccination, if applicable. -I will call the office if I experience any symptoms listed above to discuss at home management options. documented as of this encounter Visit Diagnoses Diagnosis Type 2 diabetes mellitus with diabetic neuropathy, with long-term current use of insulin ([facility]) documented in this encounter Additional Health Concerns Infection Onset Date Last Indicated Resolved Time Stenotrophomonas maltophilia Comment:Must have a follow up respiratory sample to remove isolation/infection flag. 10/20/2021 10/20/2021 COVID - 19 04/20/2022 04/20/2022 04/30/2022 12:1 8 AM FOOD AND BEVERAGE SERVICE MANAGER COVID - 19 07/18/2022 07/18/2022 07/28/2022 12:1 6 AM FOOD AND BEVERAGE SERVICE MANAGER COVID - 19 08/21/2022 08/21/2022 08/22/2022 8:31 AM CDT Respiratory Rule Out - RPA 08/21/2022 08/21/2022 0 08/22/2022 3:21 PM CDT COVID - 19 04/18/2023 04/18/2023 04/28/2023 12:1 6 AM FOOD AND BEVERAGE SERVICE MANAGER COVID - 19 07/13/2023 07/13/2023 07/23/2023 12:1 6 AM FOOD AND BEVERAGE SERVICE MANAGER Respiratory Rule Out - RPA 03/17/2024 03/17/2024 1 3:36 PM CDT COVID - 19 04/27/2024 04/27/2024 04/27/2024 2:19 PM FOOD AND BEVERAGE SERVICE MANAGER Respiratory Rule-Out 07/24/2024 07/24/2024 025 2:29 PM FOOD AND BEVERAGE SERVICE MANAGER COVID - 19 07/24/2024 07/24/2024 07/24/2024 2:29 PM FOOD AND BEVERAGE SERVICE MANAGER COVID - 19 08/22/2024 08/22/2024 08/22/2024 11:4 6 PM CDT COVID - 19 09/03/2024 09/03/2024 09/03/2024 12:4 7 PM CDT Assessment Noted Time PHQ-9 Depression Total Score: 1 03/07/20 21 10:29 AM CDT documented as of this encounter Care Teams Data Communications Software Consultant Relationship Specialty Start Date End Date Keith Craft MD PCP - General Family Medicine 01/14/19 12/26/23 Liz Capellan DO [address] [address] PCP - General Family Medicine 12/27/23 Quang Locke DO Gastroenterology 01/18/16 Bri Rollins, RN [place] Hospital Carrier 03/07/21 05/22/23 [place] [id number] [address] 05/25/21 Bri Rollins RN [place] Nurse Hospital Carrier 03/07/21 05/23/23 Werner Swift MD #2 [place] [address] Consulting Physician Pulmonary Disease 01/30/22 Yasmin Restrepo MD #[address] [phone] Consulting Physician Endocrinology 07/20/24 Jose Do MD #[address] [address] Consulting Physician Colon and Rectal Surgery 10/12/24 documented as of this encounter
--- OUTSIDE RECORDS SUMMARY | 2024-12-02 13:24 | XMS_ITS | Encounter Summary ---
Author Organization [facility] Address [address] [place] [address] Phone Care Team Providers Care Zinc Skimmer Name Role Phone Quang Locke Unavailable [phone] Keith Craft MD Primary Care Provider [phone] Bri Rollins RN Unavailable Unavailable Silvio Schulte MD Unavailable [phone] Bri Rollins RN Unavailable Unavailable Wenrer Swift MD Unavailable Liz Capellan DO Primary Care Provider [phone] Yasmin Restrepo MD Unavailable Jose Do MD Unavailable Reason for Visit * Reason Comments Medication Refill Encounter Details Date Type Department Care Team (Late st Contact Info) Description 08/03/2022 Refill [facility] - Family Medicine [facility] #2 [place] [address] Keith Craft MD #1 [place] [address] Medication Refill Social History Tobacco Use Types [...] Coronavirus/COVID-19? No / Unsure 07/18/2022 12:40 PM BARGAIN TABLE CLERK documented as of this encounter Miscellaneous Notes [...] Provider Dept 07/18/22 Office Visit Kerri Kauffman, COMMUNITY RELATIONS DIRECTOR, INSEMINATION WORKER [facility] 06/07/22 Office Visit Keith Craft MD [facility] 03/02/22 Procedure Visit [facility] 03/02/22 Office Visit Keith Craft MD [facility] 11/03/21 Office Visit Keith Craft MD [facility] 10/19/21 Office Visit Keith Craft MD [facility] 10/05/21 Office Visit Keith Craft MD [facility] 09/08/21 Office Visit Brie eDnis, PAC [facility] 08/14/21 Office Visit Keith Craft MD [facility] Showing recent visits within past 365 [...] Provider Dept 07/18/22 Office Visit Kerri Kauffman, REBECCA, INSEMINATION WORKER [facility] 06/07/22 Office Visit Keith Craft MD [facility] 03/02/22 Procedure Visit [facility] 03/02/22 Office Visit Keith Craft MD [facility] 11/03/21 Office Visit Keith Craft MD [facility] 10/19/21 Office Visit Keith Craft MD [facility] 10/05/21 Office Visit Keith Craft MD [facility] 09/08/21 Office Visit Brie Denis, PAC [facility] 08/14/21 Office Visit Keith Craft MD [facility] Showing recent visits within past 365 [...] Provider Dept 07/18/22 Office Visit Kerri Kauffman, COMMUNITY RELATIONS DIRECTOR, INSEMINATION WORKER [facility] [place] 06/07/22 Office Visit Keith Craft MD [facility] 03/02/22 Procedure Visit [facility] 03/02/22 Office Visit Keith Craft MD [facility] 11/03/21 Office Visit Keith Craft MD [facility] 10/19/21 Office Visit Keith Craft, [facility] 10/05/21 Office Visit Keith Craft MD [facility] 09/08/21 Office Visit Brie Denis, PAC [facility] 08/14/21 Office Visit Keith Craft, [facility] Showing recent visits within past 365 days and meeting all other requirements Future Appointments Date Type Provider Dept 09/10/22 Appointment Keith Craft MD [facility] Showing future appointments within next [...] Range Status 06/07/2022 56.2 <130 mg/dL Final AIN TABLE CLERK * Telephone Encounter - Gloria Cornejo RN - 08/03/2022 12:09 PM CST Images from the original note were not included. Rosuvastatin Calcium Dispensed Days Supply Quantity Provider Pharmacy ROSUVASTATIN 20MG TAB 07/30/2022 90 90 Tablet Silvio Schulte MD [facility]/pharmacy #[id number] - W... ROSUVASTATIN 20MG TAB 05/10/2022 90 90 Tablet Keith Craft MD [facility] Bet... AIN TABLE CLERK documented in this encounter Plan of Treatment Upcoming Encounters Date Type Department Care Team (Late st Contact Info) Description 12/04/2024 12:45 PM CDT [facility] - Family Medicine - [place] #2 [place] [phone] Ana Vivar, COMMUNITY RELATIONS DIRECTOR, INSEMINATION WORKER 2 [facility] [address] [place] [address] 12/09/2024 11:15 AM CDT Office Visit [facility] - General Surgery - [place] #[address] [phone] Jose Do MD #[address] [address] 01/04/2025 1:30 PM CDT Office Visit [facility] - Pulmonology & Sleep Medicine - [place] #2 [facility] [address] Werner Swift MD #[address] [place] [phone] 03/01/2025 1:30 PM CDT Office Visit [facility] - Endocrinology - [place] #2 [facility] [address] Yasmin Restrepo MD #[address] [facility] [address] [place] [phone] 05/13/2025 1:20 PM BARGAIN TABLE CLERK Office Visit [facility] Medical Group - Family [facility] #[address] [place] [address] Liz Capellan, DO [address] [place] [place] [address] documented as of this encounter Goals Goal [...] plan education. I will notify my Superintendent Building if my symptoms fall in the y [...] 19 04/18/2023 04/18/2023 04/28/2023 12:1 6 AM BARGAIN TABLE CLERK COVID - 19 07/13/2023 07/13/2023 07/23/2023 12:1 6 AM BARGAIN TABLE CLERK Respiratory Rule Out - RPA 03/17/2024 03/17/2024 1 3:36 PM CDT COVID - 19 04/27/2024 04/27/2024 04/27/2024 2:19 PM BARGAIN TABLE CLERK Respiratory Rule-Out 07/24/2024 07/24/2024 025 2:29 PM BARGAIN TABLE CLERK COVID - 19 07/24/2024 07/24/2024 07/24/2024 2:29 PM BARGAIN TABLE CLERK COVID - 19 08/22/2024 08/22/2024 08/22/2024 11:4 6 PM CDT COVID - 19 09/03/2024 09/03/2024 09/03/2024 12:4 7 PM CDT Assessment Noted Time PHQ-9 Depression Total Score: 1 03/07/20 21 10:29 AM CDT documented as of this encounter Care Teams Zinc Skimmer Relationship Specialty Start Date End Date Keith Craft MD PCP - General Family Medicine 01/14/19 12/26/23 Liz Capellan DO 2 [facility] [address] [address] PCP - General Family Medicine 12/27/23 Quang Locke DO Gastroenterology 01/18/16 Bri Rollins, RN [place] Superintendent Building 03/07/21 05/22/23 [place] [address] [address] 05/25/21 Bri Rollins RN [place] Nurse Superintendent Building 03/07/21 05/23/23 Werner Swift MD #2 [place] [address] Consulting Physician Pulmonary Disease 01/30/22 Yasmin Restrepo MD #[address] [phone] Consulting Physician Endocrinology 07/20/24 Jose Do MD #[address] [address] Consulting Physician Colon and Rectal Surgery 10/12/24 documented as of this encounter
--- OUTSIDE RECORDS SUMMARY | 2024-12-02 13:24 | XMS_ITS | Encounter Summary ---
Author Organization [facility] Address [address] [place] [address] Phone Care Team Providers Care Retail Marketing Coordinator Name Role Phone Quang Locke Unavailable [phone] Keith Craft MD Primary Care Provider [phone] Bri Rollins RN Unavailable Unavailable Silvio Schulte MD Unavailable [phone] Bri Rollins RN Unavailable Unavailable Werner Swift MD Unavailable Liz Capellan DO Primary Care Provider [phone] Yasmin Restrepo MD Unavailable Jose Do MD Unavailable Reason for Visit * Reason Comments Medication Refill Encounter Details Date Type Department Care Team (Late st Contact Info) Description 05/13/2023 Refill [facility] Group - Family Medicine [facility] #2 [place] [address] Keith Craft MD #1 [place] [address] Medication Refill Social History Tobacco Use Types [...] Kelin Nance RN - 05/13/2023 9:49 AM PASTEURIZING MACHINE OPERATOR Medication failed the protocol, provider to [...] [facility] 12/10/22 Office Visit Keith Craft MD [facility] 09/10/22 Office Visit Keith Craft MD [facility] 07/18/22 Office Visit Kerri Kauffman, TRANSITION ASSISTANT, INDUSTRIAL CHEMICALS SUPERVISOR [facility] 06/07/22 Office Visit Keith Craft MD [facility] 03/02/22 Procedure Visit [facility] [place] 03/02/22 Office Visit Keith Craft MD [facility] 11/03/21 Office Visit Keith Craft MD [facility] 10/19/21 Office Visit Keith Craft MD [facility] Showing recent visits within past 730 [...] [place] 12/10/22 Office Visit Keith Craft MD [facility] 09/10/22 Office Visit Keith Craft MD [facility] 07/18/22 Office Visit Kerri Kauffman, TRANSITION ASSISTANT, INDUSTRIAL CHEMICALS SUPERVISOR [facility] 06/07/22 Office Visit Keith Craft MD [facility] Showing recent visits within past 365 [...] Dept 05/02/23 [facility] 04/12/23 Office Visit Keith Craft MD [facility] 12/10/22 Office Visit Keith Craft MD [facility] 09/10/22 Office Visit Keith Craft MD [facility] 07/18/22 Office Visit Kerri Kauffman, TRANSITION ASSISTANT, INDUSTRIAL CHEMICALS SUPERVISOR [facility] 06/07/22 Office Visit Keith Craft MD [facility] Showing recent visits within past 365 days and meeting all other requirements Future Appointments No visits were found meeting these conditions. Showing future appointments within next 90 days and meeting all other requirements Passed - Active short-acting beta agonist prescription EURIZING MACHINE OPERATOR documented in this encounter Plan of Treatment Upcoming Encounters Date Type Department Care Team (Late st Contact Info) Description 12/04/2024 12:45 PM CDT Office Visit [facility] Medical [facility] - Family Medicine - [place] #2 [place] [address] Ana Vivar, TRANSITION ASSISTANT, INDUSTRIAL CHEMICALS SUPERVISOR 2 [facility] [address] [place] [address] 12/09/2024 11:15 AM CDT Office Visit [facility] - General Surgery - [place] #[address] [address] Jose Do MD #[address] [address] 01/04/2025 1:30 PM CDT Office Visit [facility] - Pulmonology & Sleep Medicine - [place] #2 [facility] [address] Werner Swift MD #2 [place] [address] 03/01/2025 1:30 PM CDT Office Visit [facility] Medical [facility] - Endocrinology - [place] #2 [place] [address] Yasmin Restrepo MD #2 [facility] [address] [place] [address] 05/13/2025 1:20 PM PASTEURIZING MACHINE OPERATOR Office Visit [facility] - Family Medicine - [place] #2 [place] [address] Liz Capellan, DO 2 [facility] [address] [place] [address] documented as of this encounter Goals Goal [...] Zones/Action plan education. I will notify my Scraper Operator if my symptoms fall in the [...] 19 07/13/2023 07/13/2023 07/23/2023 12:1 6 AM PASTEURIZING MACHINE OPERATOR Respiratory Rule Out - RPA 03/17/2024 03/17/2024 1 3:36 PM CDT COVID - 19 04/27/2024 04/27/2024 04/27/2024 2:19 PM PASTEURIZING MACHINE OPERATOR Respiratory Rule-Out 07/24/2024 07/24/2024 025 2:29 PM PASTEURIZING MACHINE OPERATOR COVID - 19 07/24/2024 07/24/2024 07/24/2024 2:29 PM PASTEURIZING MACHINE OPERATOR COVID - 19 08/22/2024 08/22/2024 08/22/2024 11:4 6 PM CDT COVID - 19 09/03/2024 09/03/2024 09/03/2024 12:4 7 PM CDT Assessment Noted Time PHQ-9 Depression Total Score: 1 03/07/20 21 10:29 AM CDT documented as of this encounter Care Teams Retail Marketing Coordinator Relationship Specialty Start Date End Date Keith Craft MD PCP - General Family Medicine 01/14/19 12/26/23 Liz Capellan DO [address] [address] PCP - General Family Medicine 12/27/23 Quang Locke DO Gastroenterology 01/18/16 Bri Rollins RN [place] Scraper Operator 03/07/21 05/22/23 [place] [id number] [address] 05/25/21 Bri Rollins, RN [place] Nurse Scraper Operator 03/07/21 05/23/23 Werner Swift MD #2 [place] [address] Consulting Physician Pulmonary Disease 01/30/22 Yasmin Restrepo MD #[address] [address] Consulting Physician Endocrinology 07/20/24 Jose Do MD #[address] [address] Consulting Physician Colon and Rectal Surgery 10/12/24 documented as of this encounter
--- OUTSIDE RECORDS SUMMARY | 2024-12-02 13:24 | XMS_ITS | Encounter Summary ---
Author Organization [facility] Address [address] [place] [address] Phone Care Team Providers Care Byproducts Supervisor Name Role Phone Quang Locke DO Unavailable [phone] Keith Craft MD Primary Care Provider [phone] Silvio Schulte MD Unavailable Werner Swift MD Unavailable Liz Capellan DO Primary Care Provider [phone] Yasmin Restrepo MD Unavailable Jose Do MD Unavailable Encounter Details Date Type Department Care Team (Late st Contact Info) Description 08/12/2023 [facility] [address] [place] [address] Keith Craft MD #1 [place] [address] Urinary tract infection, site not specified Social History Tobacco Use Types Packs/Day Years Used Date Smoking Tobacco: Former Cigarettes 2 50 1 - 03/16/2018 Smokeless Tobacco: Never Comments:Still uses nictoine patches and gum Alcohol Use Standard Drinks/Week Comments No 0 (1 standard drink = 0.6 oz pur e alcohol) [facility] Utilities Answer Date Recorded In the [...] any clubs o r organizations such as oriental orthodox groups, unions, fraternal or athletic groups, [...] Total Score - Questions 1-9 0 08/2021 [facility] [place] of Occupat ional Health - Occupational Stress [...] hopeless Not at all 08/15/2023 1:28 PM CDT Heike Frankel MA * Over the past 2 weeks, how often have you been bothered by any of the following problems? Question Answer Date of Assessment Author Patient Health Questionnaire-2 Score 0 08/15/2023 1:28 PM CDT Chris Frankel MA documented as of this encounter Plan of Treatment Upcoming Encounters Date Type Department Care Team (Late st Contact Info) Description 12/04/2024 12:45 PM CDT Office Visit [facility] [place] #2 [facility] [place] [phone] Ana Vivar, FENCE SUPERVISOR, PUBLISHING MANAGER [address] [facility] [address] [place] [address] 12/09/2024 11:15 AM CDT Office Visit [facility] General Surgery - [place] #[address] [place] [phone] Jose Do MD #[address] [place] [address] 01/04/2025 1:30 PM CDT Office Visit [facility] - Pulmonology & Sleep Medicine - [place] #2 [place] [address] Werner Switf MD #2 [place] [address] 03/01/2025 1:30 PM CDT Office Visit [facility] Endocrinology - [place] #2 [place] [address] Yasmin Restrepo MD #[address] [place] [address] 05/13/2025 1:20 PM LASER BEAM MACHINE OPERATOR Office Visit [facility] [place] #2 [facility] [place] [address] Liz Capellan, DO [address] [facility] [address] [place] [address] documented as of this encounter Goals Goal [...] Zones/Action plan education. I will notify my Waiter Waitress if my symptoms fall in the y [...] RESULTS ESCHERICHIA COLI 08/14/2023 3:30 PM CDT [facility] Comment:PRESUMPTIVE IDENTIFI CATION Culture URINE SPECIMEN [...] ORDERABLE S Final Result Performing Organization Address City/State/RUST Co de Phone Number [facility] [address] [place] [address], * (ABNORMAL) URINALYSIS REFLEX IF INDICATED BY ABNORMAL RESULTS (08/12/2023 1:05 PM CDT) SPECIFIC GRAVITY 1.015 1.003 - 1.030 08/12/2023 1:44 PM CDT [facility] URINE PH 6.0 5.0 - 9.0 08/12/2023 1:44 PM CDT [facility] WBC ESTERASE 500 /uL(A) Negative 08/12/2023 1:44 PM CDT [facility] NITRITE Negative Negative 08/12/2023 1:44 PM CDT [facility] PROTEIN, RANDOM URINE 100 mg/dL(A) Negative 08/12/2023 1:44 PM CDT [facility] URINE GLUCOSE, QUAL 1000 mg/dL(A) Negative 08/12/2023 1:44 PM CDT [facility] URINE KETONES Negative Negative 08/12/2023 1:44 PM CDT [facility] UROBILINOGEN Normal Normal mg/dL 08/12/2023 1:44 PM CDT [facility] URINE BLOOD 50 /uL(A) Negative bharathi/ul 08/12/2023 1:44 PM CDT [facility] URINALYSIS COLOR Yellow 08/12/19 24 1:44 PM CDT [facility] URINALYSIS CLARITY Very Cloudy 08/12/2023 1:44 PM CDT [facility] WBC (Urine) Packed(A) Negative, 0-5 /hpf 08/12/2023 1:44 PM CDT [facility] URINE RBC'S 0-2 Negative, 0-2 /hpf 08/12/2023 1:44 PM CDT [facility] EPITHELIAL CELLS Negative /lpf 08/12/19 24 1:44 PM CDT [facility] BACTERIA, URINE Many(A) Negative /hpf 08/12/2023 1:44 PM CDT [facility] Urine Non-Phlebotomy Collection / Unknown 08/12/2023 1:05 PM CDT 08/12/2023 1:29 PM CDT us Keith Craft MD URINE ORDERABLES Final Result [facility] #1 [place] [address] documented in this encounter Visit Diagnoses Diagnosis Urinary tract infection, site not specified documented in this encounter Additional Health Concerns Infection Onset Date Last Indicated Resolved Time Stenotrophomonas maltophilia Comment:Must have a follow up respiratory sample to remove isolation/infection flag. 10/20/2021 10/20/2021 Respiratory Rule Out - RPA 03/17/2024 03/17/2024 1 3:36 PM CDT COVID - 19 04/27/2024 04/27/2024 04/27/2024 2:19 PM LASER BEAM MACHINE OPERATOR Respiratory Rule-Out 07/24/2024 07/24/2024 025 2:29 PM LASER BEAM MACHINE OPERATOR COVID - 19 07/24/2024 07/24/2024 07/24/2024 2:29 PM LASER BEAM MACHINE OPERATOR COVID - 19 08/22/2024 08/22/2024 08/22/2024 11:4 6 PM CDT COVID - 19 09/03/2024 09/03/2024 09/03/2024 12:4 7 PM CDT Assessment Noted Time PHQ-9 Depression Total Score: 1 03/07/20 21 10:29 AM CDT documented as of this encounter Care Teams Byproducts Supervisor Relationship Specialty Start Date End Date Keith Craft MD PCP - General Family Medicine 01/14/19 12/26/23 Liz Capellan DO [address] [address] PCP - General Family Medicine 12/27/23 Quang Locke DO Gastroenterology 01/18/16 [place] [id number] [address] 05/25/21 Werner Swift MD #2 [place] [address] Consulting Physician Pulmonary Disease 01/30/22 Yasmin Restrepo MD #[address] [phone] Consulting Physician Endocrinology 07/20/24 Jose Do MD #2 [place] [address] Consulting Physician Colon and Rectal Surgery 10/12/24 documented as of this encounter
--- OUTSIDE RECORDS SUMMARY | 2024-12-02 13:24 | XMS_ITS | Encounter Summary ---
Author Organization [facility] Address [address] [place] [address] Phone Care Team Providers Care Cloth Shearing Supervisor Name Role Phone Quang Locke Unavailable [phone] Keith Craft MD Primary Care Provider [phone] Bri Rollins RN Unavailable Unavailable Silvio Schulte MD Unavailable [phone] Bri Rollins RN Unavailable Unavailable Werner Swift MD Unavailable Liz Capellan DO Primary Care Provider [phone] Yasmin Restrepo MD Unavailable Jose Do MD Unavailable Reason for Visit * Reason Comments Medication Refill Encounter Details Date Type Department Care Team (Late st Contact Info) Description 04/02/2022 Refill [facility] - Family Medicine [facility] #2 [place] [address] Keith Craft MD #1 [place] [address] Medication Refill Social History Tobacco Use Types [...] Coronavirus/COVID-19? No / Unsure 04/03/2022 9:15 AM CAD TECHNICIAN documented as of this encounter Miscellaneous [...] 03/02/22 Procedure Visit [facility] 03/02/22 Office Visit Keith Craft MD [facility] 11/03/21 Office Visit Keith Craft MD [facility] 10/19/21 Office Visit Keith Craft MD [facility] [place] 10/05/21 Office Visit Keith Craft MD [facility] [place] 09/08/21 Office Visit Brie Denis, [facility] [place] 08/14/21 Office Visit Keith Craft MD [facility] 07/31/21 Office Visit Keith Craft MD [facility] 05/25/21 Office Visit Marcin Anderson APRN, KITCHEN AND COUNTER WORKER [facility] 05/05/21 Office Visit Brie Denis PAC [facility] Showing recent visits within past 365 days and meeting all other requirements Future Appointments Date Type Provider Dept 06/04/22 Appointment Keith Craft MD [facility] Showing future appointments within next 90 days and meeting all other requirements TECHNICIAN documented in this encounter Plan of Treatment Upcoming Encounters Date Type Department Care Team (Late st Contact Info) Description 12/04/2024 12:45 PM CDT Office Visit [facility] - Family Medicine - [place] #2 [place] [address] Ana Vivar, REBECCA, KITCHEN AND COUNTER WORKER 2 [facility] [address] [place] [address] 12/09/2024 11:15 AM CDT Office Visit [facility] - General Surgery - [place] #[address] [place] [address] Jose Do MD #[address] [address] 01/04/2025 1:30 PM CDT Office Visit [facility] - Pulmonology & Sleep Medicine - [place] #2 [facility] [place] [address] Werner Swift MD #2 [facility] [address] 03/01/2025 1:30 PM CDT Office Visit [facility] - Endocrinology - [place] #2 [facility] [place] [place] [address] Yasmin Restrepo MD #[address] [facility] [address] [place] [address] 05/13/2025 1:20 PM CAD TECHNICIAN Office Visit [facility] #[address] [place] [address] Liz Capellan, DO [address] [facility] [address] [facility]. [address] [place] [address] documented as of this encounter Goals Goal [...] Zones/Action plan education. I will notify my Student Services Counselor if my symptoms fall in the [...] 19 04/20/2022 04/20/2022 04/30/2022 12:1 8 AM CAD TECHNICIAN COVID - 19 07/18/2022 07/18/2022 07/28/2022 12:1 6 AM CAD TECHNICIAN COVID - 19 08/21/2022 08/21/2022 08/22/2022 8:31 AM CDT Respiratory Rule Out - RPA 08/21/2022 08/21/2022 0 08/22/2022 3:21 PM CDT COVID - 19 04/18/2023 04/18/2023 04/28/2023 12:1 6 AM CAD TECHNICIAN COVID - 19 07/13/2023 07/13/2023 07/23/2023 12:1 6 AM CAD TECHNICIAN Respiratory Rule Out - RPA 03/17/2024 03/17/2024 1 3:36 PM CDT COVID - 19 04/27/2024 04/27/2024 04/27/2024 2:19 PM CAD TECHNICIAN Respiratory Rule-Out 07/24/2024 07/24/2024 025 2:29 PM CAD TECHNICIAN COVID - 19 07/24/2024 07/24/2024 07/24/2024 2:29 PM CAD TECHNICIAN COVID - 19 08/22/2024 08/22/2024 08/22/2024 11:4 6 PM CDT COVID - 19 09/03/2024 09/03/2024 09/03/2024 12:4 7 PM CDT Assessment Noted Time PHQ-9 Depression Total Score: 1 03/07/20 21 10:29 AM CDT documented as of this encounter Care Teams Cloth Shearing Supervisor Relationship Specialty Start Date End Date Keith Craft MD PCP - General Family Medicine 01/14/19 12/26/23 Liz Capellan DO 2 [facility] [place] [address] PCP - General Family Medicine 12/27/23 Quang Locke DO Gastroenterology 01/18/16 Bri Rollins, RN [place] Student Services Counselor 03/07/21 05/22/23 [place] [id number] [address] 05/25/21 rBi Rollins, RN [place] Nurse Student Services Counselor 03/07/21 05/23/23 Werner Swift MD #2 [place] [address] Consulting Physician Pulmonary Disease 01/30/22 Yasmin Restrepo MD #[address] [address] Consulting Physician Endocrinology 07/20/24 Jose Do MD #[address] [id number] Consulting Physician Colon and Rectal Surgery 10/12/24 documented as of this encounter
--- OUTSIDE RECORDS SUMMARY | 2024-12-02 13:24 | XMS_ITS | Encounter Summary ---
Author Organization [facility] Address [address] [place] [address] Phone Care Team Providers Care Finishing Supervisor Plastic Sheets Name Role Phone Quang Locke Unavailable [phone] Keith Craft MD Primary Care Provider [phone] Bri Rollins RN Unavailable Unavailable Silvio Schulte MD Unavailable [phone] Bri Rollins RN Unavailable Unavailable Werner Swift MD Unavailable Liz Capellan DO Primary Care Provider [phone] Yasmin Restrepo MD Unavailable Jose Do MD Unavailable Reason for Visit * Reason Comments Medication Refill Encounter Details Date Type Department Care Team (Late st Contact Info) Description 03/17/2022 Refill [facility] - Family Medicine [facility] #2 [place] [address] Keith Craft MD #1 [place] [address] Medication Refill Social History Tobacco Use Types [...] Pending Prescriptions Disp Refills ergocalciferol (VITAMIN D) 13319 UNIT Capsule [Pharmacy Med Name: VITAMIN D 04803DMR CAPSULE] 12 Capsule 0 Sig: TAKE ONE CAPSULE BY MOUTH ONE TIME WEEKLY Vitamin Supplements (Adult) Protocol Failed - 03/17/2022 10:30 AM Failed - Vitamin D less than 1.25mg Passed - Visit with relevant provider in past 12 months or upcoming 90 days Recent Visits Date Type Provider Dept 03/02/22 Procedure Visit [facility] 03/02/22 Office Visit Keith Craft MD [facility] 11/03/21 Office Visit Keith Craft MD [facility] [place] 10/19/21 Office Visit Keith Craft MD [facility] [place] 10/05/21 Office Visit Keith Craft MD [facility] 09/08/21 Office Visit Brie Denis, [facility] [place] 08/14/21 Office Visit Keith Craft MD [facility] 07/31/21 Office Visit Keith Craft MD [facility] 05/25/21 Office Visit Marcin Anderson APRN, JAK[facility] [place] 05/05/21 Office Visit Brie Denis, NICOLE [facility] [place] Showing recent visits within past 365 days and meeting all other requirements Future Appointments Date Type Provider Dept 06/04/22 Appointment Keith Craft MD [facility] Showing future appointments within next 90 days [...] Visit [facility] [place] 03/02/22 Office Visit Keith Craft MD [facility] 11/03/21 Office Visit Keith Craft MD [facility] 10/19/21 Office Visit Keith Craft MD [facility] 10/05/21 Office Visit Keith Craft MD [facility] 09/08/21 Office Visit Brie Denis, PAC [facility] 08/14/21 Office Visit Keith Craft MD [facility] 07/31/21 Office Visit Keith Craft MD [facility] 05/25/21 Office Visit Marcin Anderson APRN, JAKOB [facility] [place] 05/05/21 Office Visit Brie Denis, PAC [facility] [place] Showing recent visits within past 730 days and meeting all other requirements Future Appointments Date Type Provider Dept 06/04/22 Appointment Keith Craft MD [facility] Showing future appointments within next 90 days [...] Visit [facility] [place] 03/02/22 Office Visit Keith Craft, [facility] [place] 11/03/21 Office Visit Keith Craft, [facility] [place] 10/19/21 Office Visit Keith Craft, [facility] 10/05/21 Office Visit Keith Craft, [facility] [place] 09/08/21 Office Visit Brie Denis, PAC [facility] [place] 08/14/21 Office Visit Keith Craft MD [facility] [place] 07/31/21 Office Visit Keith Craft MD [facility] [place] 05/25/21 Office Visit Marcin Anderson APRN, RELIGIOUS LEADER [facility] 05/05/21 Office Visit Brie Denis, [facility] [place] Showing recent visits within past 365 days and meeting all other requirements Future Appointments Date Type Provider Dept 06/04/22 Appointment Keith Craft MD [facility] [...] Visit [facility] [place] 03/02/22 Office Visit Keith Craft MD [facility] 11/03/21 Office Visit Keith Craft, [facility] 10/19/21 Office Visit Keith Craft, [facility] 10/05/21 Office Visit Keith Craft, [facility] 09/08/21 Office Visit Brie Denis, PAC [facility] 08/14/21 Office Visit Keith Craft, [facility] 07/31/21 Office Visit Keith Craft, [facility] 05/25/21 Office Visit Marcin Anderson APRN, RELIGIOUS LEADER [facility] [place] 05/05/21 Office Visit Brie Denis, [facility] Showing recent visits within past 365 days and meeting all other requirements Future Appointments Date Type Provider Dept 06/04/22 Appointment Keith Craft, [place] [facility] Showing [...] Procedure Visit [facility] [place] 03/02/22 Office Visit Keith Craft MD [facility] [place] 11/03/21 Office Visit Keith Craft MD [facility] [place] 10/19/21 Office Visit Keith Craft MD [facility] [place] 10/05/21 Office Visit Keith Craft MD [facility] [place] 09/08/21 Office Visit Brie Denis, PAC [facility] 08/14/21 Office Visit Keith Craft MD [facility] [place] 07/31/21 Office Visit Keith Craft MD [facility] [place] 05/25/21 Office Visit Marcin Anderson, DIRECTOR OF CASEWORK DEPARTMENT, RELIGIOUS LEADER [facility] 05/05/21 Office Visit Brie Denis PAC [facility] Showing recent visits within past 365 days and meeting all other requirements Future Appointments Date Type Provider Dept 06/04/22 Appointment Keith Craft MD [facility] Showing future appointments within next 90 days and meeting all other requirements documented in this encounter Plan of Treatment Upcoming Encounters Date Type Department Care Team (Late st Contact Info) Description 12/04/2024 12:45 PM CDT Office Visit [facility] - Family Medicine - [place] #2 [facility] [place] [address] Ana Vivar, DIRECTOR OF CASEWORK DEPARTMENT, RELIGIOUS LEADER [address] [address] 12/09/2024 11:15 AM CDT Office Visit [facility] - General Surgery - [place] #[address] [place] [address] Jose Do MD #[address] [place] [address] 01/04/2025 1:30 PM CDT Office Visit [facility] - Pulmonology & Sleep Medicine - [place] #2 [place] [address] Werner Swift MD #2 [place] [address] 03/01/2025 1:30 PM CDT Office Visit [facility] - Endocrinology - [place] #2 [place] [address] Yasmin Restrepo MD #[address] [place] [address] 05/13/2025 1:20 PM VEGETABLE FARM MANAGER Office Visit [facility] - Family [facility] #[address] [place] [address] Liz Capellan, DO [address] [place] [place] [address] documented as of this encounter Goals Goal [...] plan education. I will notify my E D Tech if my symptoms fall in the [...] 19 04/20/2022 04/20/2022 04/30/2022 12:1 8 AM VEGETABLE FARM MANAGER COVID - 19 07/18/2022 07/18/2022 07/28/2022 12:1 6 AM VEGETABLE FARM MANAGER COVID - 19 08/21/2022 08/21/2022 08/22/2022 8:31 AM CDT Respiratory Rule Out - RPA 08/21/2022 08/21/2022 0 08/22/2022 3:21 PM CDT COVID - 19 04/18/2023 04/18/2023 04/28/2023 12:1 6 AM VEGETABLE FARM MANAGER COVID - 19 07/13/2023 07/13/2023 07/23/2023 12:1 6 AM VEGETABLE FARM MANAGER Respiratory Rule Out - RPA 03/17/2024 03/17/2024 1 3:36 PM CDT COVID - 19 04/27/2024 04/27/2024 04/27/2024 2:19 PM VEGETABLE FARM MANAGER Respiratory Rule-Out 07/24/2024 07/24/2024 025 2:29 PM VEGETABLE FARM MANAGER COVID - 19 07/24/2024 07/24/2024 07/24/2024 2:29 PM VEGETABLE FARM MANAGER COVID - 19 08/22/2024 08/22/2024 08/22/2024 11:4 6 PM CDT COVID - 19 09/03/2024 09/03/2024 09/03/2024 12:4 7 PM CDT Assessment Noted Time PHQ-9 Depression Total Score: 1 03/07/20 21 10:29 AM CDT documented as of this encounter Care Teams Finishing Supervisor Plastic Sheets Relationship Specialty Start Date End Date Keith Craft MD PCP - General Family Medicine 01/14/19 12/26/23 Liz Capellan DO [address] [address] PCP - General Family Medicine 12/27/23 Quang Locke DO Gastroenterology 01/18/16 Bri Rollins, KATEY [place] E D Tech 03/07/21 05/22/23 [place] [id number] [address] 05/25/21 Bri Rollins RN [place] Nurse E D Tech 03/07/21 05/23/23 Werner Swift MD #2 [place] [address] Consulting Physician Pulmonary Disease 01/30/22 Yasmin Restrepo MD #[address] [phone] Consulting Physician Endocrinology 07/20/24 Jose Do MD #[address] [id number] Consulting Physician Colon and Rectal Surgery 10/12/24 documented as of this encounter
--- OUTSIDE RECORDS SUMMARY | 2024-12-02 13:24 | XMS_ITS | Encounter Summary ---
Author Organization [facility] Address [address] [place] [address] Phone Care Team Providers Care Public Transportation Inspector Name Role Phone Quang Locke Unavailable [phone] Keith Craft MD Primary Care Provider [phone] Bri Rollins RN Unavailable Unavailable Silvio Schulte MD Unavailable [phone] Bri Rollins RN Unavailable Unavailable Werner Swift MD Unavailable Liz Capellan DO Primary Care Provider [phone] Yasmin Restrepo MD Unavailable Jose Do MD Unavailable Reason for Visit * Reason Comments Medication Refill Encounter Details Date Type Department Care Team (Late st Contact Info) Description 03/07/2022 Refill [facility] - [facility] #2 [place] [address] Keith Craft MD #1 [place] [address] Medication Refill Social History Tobacco Use Types [...] [facility] - Family Medicine - [place] #2 [place] [address] Ana Vivar N, LOGISTICS SERVICE REPRESENTATIVE, CULINARY ARTS INSTRUCTOR 2 [facility] [place]. [address] [place] [address] 12/09/2024 11:15 AM CDT Office Visit [facility] - General Surgery - [place] #2 [facility] [address] [place] [address] Jose Do MD #[address] [address] 01/04/2025 1:30 PM CDT Office Visit [facility] - Pulmonology & Sleep Medicine - [place] #2 [place] [address] Werner Swift MD #2 [place] [address] 03/01/2025 1:30 PM CDT Office Visit [facility] - Endocrinology - [place] #2 [place] [address] Yasmin Restrepo MD #[address] [address] 05/13/2025 1:20 PM CIVIL SERVICE CLERK Office Visit [facility] Family Medicine - [place] #2 [place] [address] Liz Capellan, DO [address] [address] documented as of this encounter Goals Goal [...] Zones/Action plan education. I will notify my Screen Roller if my symptoms fall in the y [...] 19 04/20/2022 04/20/2022 04/30/2022 12:1 8 AM CIVIL SERVICE CLERK COVID - 19 07/18/2022 07/18/2022 07/28/2022 12:1 6 AM CIVIL SERVICE CLERK COVID - 19 08/21/2022 08/21/2022 08/22/2022 8:31 AM CDT Respiratory Rule Out - RPA 08/21/2022 08/21/2022 0 08/22/2022 3:21 PM CDT COVID - 19 04/18/2023 04/18/2023 04/28/2023 12:1 6 AM CIVIL SERVICE CLERK COVID - 19 07/13/2023 07/13/2023 07/23/2023 12:1 6 AM CIVIL SERVICE CLERK Respiratory Rule Out - RPA 03/17/2024 03/17/2024 1 3:36 PM CDT COVID - 19 04/27/2024 04/27/2024 04/27/2024 2:19 PM CIVIL SERVICE CLERK Respiratory Rule-Out 07/24/2024 07/24/2024 025 2:29 PM CIVIL SERVICE CLERK COVID - 19 07/24/2024 07/24/2024 07/24/2024 2:29 PM CIVIL SERVICE CLERK COVID - 19 08/22/2024 08/22/2024 08/22/2024 11:4 6 PM CDT COVID - 19 09/03/2024 09/03/2024 09/03/2024 12:4 7 PM CDT Assessment Noted Time PHQ-9 Depression Total Score: 1 03/07/20 21 10:29 AM CDT documented as of this encounter Care Teams Public Transportation Inspector Relationship Specialty Start Date End Date Keith Craft MD PCP - General Family Medicine 01/14/19 12/26/23 Liz Capellan DO [address] [address] PCP - General Family Medicine 12/27/23 Quang Locke DO Gastroenterology 01/18/16 Bri Rollins RN [place] Screen Roller 03/07/21 05/22/23 [place] [address] [address] 05/25/21 Bri Rollins RN [place] Nurse Screen Roller 03/07/21 05/23/23 Werner Swift MD #2 [place] [address] Consulting Physician Pulmonary Disease 01/30/22 Yasmin Restrepo MD #[address] [address] Consulting Physician Endocrinology 07/20/24 Jose Do MD #[address] [address] Consulting Physician Colon and Rectal Surgery 10/12/24 documented as of this encounter
--- OUTSIDE RECORDS SUMMARY | 2024-12-02 13:24 | XMS_ITS | Encounter Summary ---
Author Organization [facility] Address [address] [place] [address] Phone Care Team Providers Care Hide Cleaner Name Role Phone Quang Locke Unavailable [phone] Keith Craft MD Primary Care Provider [phone] Bri Rollins RN Unavailable Unavailable Silvio Schulte MD Unavailable [phone] Bri Rollins RN Unavailable Unavailable Werner Swift MD Unavailable Liz Capellan DO Primary Care Provider [phone] Yasmin Restrepo MD Unavailable Jose Do MD Unavailable Reason for Visit * Reason Comments Medication Refill Encounter Details Date Type Department Care Team (Late st Contact Info) Description 02/04/2021 Refill [facility] - Family Medicine [facility] #2 [place] [address] Keith Craft MD #1 [place] [address] Medication Refill Social History Tobacco Use Types [...] Dept 02/03/21 Office Visit Brie Denis PAC [facility] 01/12/21 Office Visit Keith Craft MD [facility] 10/12/20 Office Visit Keith Craft MD [facility] 10/04/20 Office Visit Keith Craft MD [facility] 06/07/20 Office Visit Keith Craft MD [facility] 04/25/20 Office Visit [facility] MD [facility] Showing recent visits within past 365 days and meeting all other requirements Future Appointments Date Type Provider Dept 02/07/21 Appointment Keith Craft MD [facility] 04/14/21 Appointment Keith Craft MD [facility] Showing future appointments within next 90 days and meeting all other requirements Passed - Active short-acting beta agonist prescription documented in this encounter Plan of Treatment Upcoming Encounters Date Type Department Care Team (Late st Contact Info) Description 12/04/2024 12:45 PM CDT Office Visit [facility] [place] [facility] - Family Medicine - [place] #2 [place] [address] Ana Vivar, OUTSIDE SALES ACCOUNT EXECUTIVE, SALES AND SERVICE ENGINEER [address] [place] [address] 12/09/2024 11:15 AM CDT Office Visit [facility] [place] [facility] - General Surgery - [place] #2 [facility] [address] [place] [address] Jose Do MD #[address] [place] [address] 01/04/2025 1:30 PM CDT Office [facility] [place] [facility] - Pulmonology & Sleep Medicine - [place] #2 [place] [address] Werner Swift MD #2 [place] [address] 03/01/2025 1:30 PM CDT Office Visit [facility] Medical [place] [facility] - Endocrinology - [place] #2 [place] [address] Yasmin Restrepo MD #[address] [place] [address] 05/13/2025 1:20 PM SALES FLOOR ASSOCIATE Office Visit [facility] - Family [facility] - [place] #[address] [place] [address] Liz Capellan, DO 2 [facility] [place] [place] [place] [address] documented as of this encounter Visit Diagnoses Diagnosis Pulmonary emphysema, unspecified emphysema type (HCC) documented in this encounter Additional Health Concerns Infection Onset Date Last Indicated Resolved Time COVID - 19 07/23/2021 07/23/2021 07/24/2021 6:31 AM SALES FLOOR ASSOCIATE COVID - 19 10/19/2021 10/19/2021 10/20/2021 7:45 AM CDT Respiratory Rule Out - RPA 10/19/2021 10/19/2021 0 10/20/2021 2:10 PM CDT Stenotrophomonas maltophilia Comment:Must have a follow up respiratory sample to remove isolation/infection flag. 10/20/2021 10/20/2021 COVID - 19 04/20/2022 04/20/2022 04/30/2022 12:1 8 AM SALES FLOOR ASSOCIATE COVID - 19 07/18/2022 07/18/2022 07/28/2022 12:1 6 AM SALES FLOOR ASSOCIATE COVID - 19 08/21/2022 08/21/2022 08/22/2022 8:31 AM CDT Respiratory Rule Out - RPA 08/21/2022 08/21/2022 0 08/22/2022 3:21 PM CDT COVID - 19 04/18/2023 04/18/2023 04/28/2023 12:1 6 AM SALES FLOOR ASSOCIATE COVID - 19 07/13/2023 07/13/2023 07/23/2023 12:1 6 AM SALES FLOOR ASSOCIATE Respiratory Rule Out - RPA 03/17/2024 03/17/2024 1 3:36 PM CDT COVID - 19 04/27/2024 04/27/2024 04/27/2024 2:19 PM SALES FLOOR ASSOCIATE Respiratory Rule-Out 07/24/2024 07/24/2024 025 2:29 PM SALES FLOOR ASSOCIATE COVID - 19 07/24/2024 07/24/2024 07/24/2024 2:29 PM SALES FLOOR ASSOCIATE COVID - 19 08/22/2024 08/22/2024 08/22/2024 11:4 6 PM CDT COVID - 19 09/03/2024 09/03/2024 09/03/2024 12:4 7 PM CDT Assessment Noted Time PHQ-9 Depression Total Score: 0 02/04/20 11:12 AM CDT documented as of this encounter Care Teams Hide Cleaner Relationship Specialty Start Date End Date Keith Crfat MD PCP - General Family Medicine 01/14/19 12/26/23 Liz Capellan DO [address] [address] PCP - General Family Medicine 12/27/23 Quang Locke DO Gastroenterology 01/18/16 Bri Rollins RN [place] Game Advisor 03/07/21 05/22/23 [place] [id number] [address] 05/25/21 Bri Rollins RN [place] Nurse Game Advisor 03/07/21 05/23/23 Werner Swift MD #2 [place] [address] Consulting Physician Pulmonary Disease 01/30/22 Yasmin Restrepo MD #[address] [address] Consulting Physician Endocrinology 07/20/24 Jose Do MD #2 [place] [address] Consulting Physician Colon and Rectal Surgery 10/12/24 documented as of this encounter
--- OUTSIDE RECORDS SUMMARY | 2024-12-02 13:24 | XMS_ITS | Encounter Summary ---
Author Organization [facility] Address [address] [place] [address] Phone Care Team Providers Care Chucking Lathe Operator Name Role Phone Quang Locke Unavailable [phone] Keith Craft MD Primary Care Provider [phone] Bri Rollins RN Unavailable Unavailable Silvio Schulte MD Unavailable [phone] Bri Rollins RN Unavailable Unavailable Werner Swift MD Unavailable Liz Capellan DO Primary Care Provider [phone] Yasmin Restrepo MD Unavailable Jose Do MD Unavailable Reason for Visit * Reason Comments Medication Refill Encounter Details Date Type Department Care Team (Late st Contact Info) Description 05/15/2023 Refill [facility] - Family Medicine [facility] #2 [place] [address] Keith Craft MD #1 [place] [address] Medication Refill Social History Tobacco Use Types [...] Pending Prescriptions Disp Refills ergocalciferol (VITAMIN D) 36140 UNIT Capsule [Pharmacy Med Name: VITAMIN D [id number] CAPSULE] 12 Capsule 0 Sig: TAKE ONE [...] 07/18/22 Office Visit Kerri Kauffman, REBECCA, JAKOB [facility] [place] 06/07/22 Office Visit Keith Craft MD [...] Dept 05/02/23 Office Visit Keith Craft MD [facility] [place] 04/12/23 Office Visit Keith Craft MD [facility] [place] 12/10/22 Office Visit Keith Craft MD [facility] [place] 09/10/22 Office Visit Keith Craft MD [facility] [place] 07/18/22 Office Visit Kerri Kauffman LEARNING AND DEVELOPMENT INTERN, DATA QUALITY CONSULTANT [facility] [place] 06/07/22 Office Visit Keith Craft MD [facility] Showing recent visits within past 365 days and meeting all other requirements Future Appointments No visits were found meeting these conditions. Showing future appointments within next 90 days and meeting all other requirements AGENT documented in this encounter Plan of Treatment Upcoming Encounters Date Type Department Care Team (Late st Contact Info) Description 12/04/2024 12:45 PM CDT Office Visit [facility] - Family Medicine - [place] #2 [place] [address] Ana Vivar, LEARNING AND DEVELOPMENT INTERN, DATA QUALITY CONSULTANT [address] [address] 12/09/2024 11:15 AM CDT Office Visit [facility] - General Surgery - [place] #[address] [address] Jose Do MD #[address] [address] 01/04/2025 1:30 PM CDT Office Visit [facility] - Pulmonology & Sleep Medicine - [place] #2 [place] [address] Werner Swift MD #2 [place] [address] 03/01/2025 1:30 PM CDT Office Visit [facility] - Endocrinology - [place] #2 [place] [address] Yasmin Restrepo MD #2 [facility] [address] [place] [address] 05/13/2025 1:20 PM BAIL AGENT Office Visit [facility] - Family Medicine - [place] #2 [place] [address] Liz Capellan, DO 2 [facility]. [address] [place] [address] documented as of this encounter Goals Goal [...] plan education. I will notify my Senior C Software Developer if my symptoms fall in the [...] 19 07/13/2023 07/13/2023 07/23/2023 12:1 6 AM BAIL AGENT Respiratory Rule Out - RPA 03/17/2024 03/17/2024 1 3:36 PM CDT COVID - 19 04/27/2024 04/27/2024 04/27/2024 2:19 PM BAIL AGENT Respiratory Rule-Out 07/24/2024 07/24/2024 025 2:29 PM BAIL AGENT COVID - 19 07/24/2024 07/24/2024 07/24/2024 2:29 PM BAIL AGENT COVID - 19 08/22/2024 08/22/2024 08/22/2024 11:4 6 PM CDT COVID - 19 09/03/2024 09/03/2024 09/03/2024 12:4 7 PM CDT Assessment Noted Time PHQ-9 Depression Total Score: 1 03/07/20 21 10:29 AM CDT documented as of this encounter Care Teams Chucking Lathe Operator Relationship Specialty Start Date End Date Keith Craft MD PCP - General Family Medicine 01/14/19 12/26/23 Liz Capellan DO 2 [facility] [address] [address] PCP - General Family Medicine 12/27/23 Quang Locke DO Gastroenterology 01/18/16 Bri Rollins, RN [place] Senior C Software Developer 03/07/21 05/22/23 [place] [address] [address] 05/25/21 Bri Rollins RN [place] Nurse Senior C Software Developer 03/07/21 05/23/23 Werner Swift MD #2 [place] [address] Consulting Physician Pulmonary Disease 01/30/22 Yasmin Restrepo MD #[address] [phone] Consulting Physician Endocrinology 07/20/24 Jose Do MD #[address] [address] Consulting Physician Colon and Rectal Surgery 10/12/24 documented as of this encounter
--- OUTSIDE RECORDS SUMMARY | 2024-12-02 13:24 | XMS_ITS | Encounter Summary ---
Author Organization [facility] Address [address] [place] [address] Phone Care Team Providers Care Skin Care Technician Name Role Phone Quang Locke Unavailable [phone] Keith Craft MD Primary Care Provider [phone] Bri Rollins RN Unavailable Unavailable Silvio Schulte MD Unavailable Bri Rollins RN Unavailable Unavailable Werner Swift MD Unavailable Liz Capellan DO Primary Care Provider [phone] Yasmin Restrepo MD Unavailable Jose Do MD Unavailable Reason for Visit * Reason Comments Medication Refill Encounter Details Date Type Department Care Team (Late st Contact Info) Description 02/27/2022 Refill [facility] Medicine [facility] #2 [place] [address] Keith Craft MD #1 [place] [address] Medication Refill Social History Tobacco Use Types [...] [facility] 09/08/21 Office Visit Brie Denis, [facility] 08/14/21 Office Visit Keith Craft MD [facility] 07/31/21 Office Visit Keith Craft MD [facility] 05/25/21 Office Visit Marcin Anderson, GAME MASTER, RAG CUTTING MACHINE FEEDER [facility] 05/05/21 Office Visit Brie Denis, PAC [facility] [place] 04/14/21 Office Visit Keith [facility] MD [facility] 03/23/21 Office Visit Keith Craft MD [facility] Showing recent visits within past 365 days and meeting all other requirements Future Appointments Date Type Provider Dept 03/02/22 Appointment Keith [facility] 03/02/22 Appointment [facility] 03/09/22 Appointment Keith Craft MD [facility] Showing future appointments within next 90 days and meeting all other requirements documented in this encounter Plan of Treatment Upcoming Encounters Date Type Department Care Team (Late st Contact Info) Description 12/04/2024 12:45 PM CDT Office [facility] - Family Medicine - [place] #2 [facility] [address] Ana Vivar, REBECCA, RAG CUTTING MACHINE FEEDER 2 [facility] [place] [address] [place] [address] 12/09/2024 11:15 AM CDT Office [facility] Medical [facility] - General Surgery - [place] #2 [facility] [address] [place] [address] Jose Do MD #2 [facility] [address] [place] [address] 01/04/2025 1:30 PM CDT Office Visit [facility] Medical [facility] - Pulmonology & Sleep Medicine - [place] #2 [place] [address] Werner Swift MD #2 [place] [address] 03/01/2025 1:30 PM CDT Office [facility] Medical [facility] - Endocrinology - [place] #[address] [facility] [address] Yasmin Restrepo MD #2 [facility] [address] [place] [address] 05/13/2025 1:20 PM ETCHER ENAMELING Office Visit [facility] - Family Medicine - [place] #2 [facility] [place] [place] [address] Liz Capellan, DO 2 [facility]. [address] [place] [address] documented as of this encounter Goals Goal [...] Zones/Action plan education. I will notify my Lace Burn Out Tender if my symptoms fall in the [...] 19 04/20/2022 04/20/2022 04/30/2022 12:1 8 AM ETCHER ENAMELING COVID - 19 07/18/2022 07/18/2022 07/28/2022 12:1 6 AM ETCHER ENAMELING COVID - 19 08/21/2022 08/21/2022 08/22/2022 8:31 AM CDT Respiratory Rule Out - RPA 08/21/2022 08/21/2022 0 08/22/2022 3:21 PM CDT COVID - 19 04/18/2023 04/18/2023 04/28/2023 12:1 6 AM ETCHER ENAMELING COVID - 19 07/13/2023 07/13/2023 07/23/2023 12:1 6 AM ETCHER ENAMELING Respiratory Rule Out - RPA 03/17/2024 03/17/2024 1 3:36 PM CDT COVID - 19 04/27/2024 04/27/2024 04/27/2024 2:19 PM ETCHER ENAMELING Respiratory Rule-Out 07/24/2024 07/24/2024 025 2:29 PM ETCHER ENAMELING COVID - 19 07/24/2024 07/24/2024 07/24/2024 2:29 PM ETCHER ENAMELING COVID - 19 08/22/2024 08/22/2024 08/22/2024 11:4 6 PM CDT COVID - 19 09/03/2024 09/03/2024 09/03/2024 12:4 7 PM CDT Assessment Noted Time PHQ-9 Depression Total Score: 1 03/07/20 21 10:29 AM CDT documented as of this encounter Care Teams Skin Care Technician Relationship Specialty Start Date End Date Keith Craft MD PCP - General Family Medicine 01/14/19 12/26/23 Liz Capellan DO 2 [facility] [address] [place] [address] PCP - General Family Medicine 12/27/23 Quang Locke DO Gastroenterology 01/18/16 Bri Rollins, RN [place] Lace Burn Out Tender 03/07/21 05/22/23 [place] [address] [address] 05/25/21 Bri Rollins RN [place] Nurse Lace Burn Out Tender 03/07/21 05/23/23 Werner Swift MD #2 [facility] [place] [address] Consulting Physician Pulmonary Disease 01/30/22 Yasmin Restrepo MD #[address] [phone] Consulting Physician Endocrinology 07/20/24 Jose Do MD #[address] [address] Consulting Physician Colon and Rectal Surgery 10/12/24 documented as of this encounter
--- OUTSIDE RECORDS SUMMARY | 2024-12-02 13:24 | XMS_ITS | Encounter Summary ---
Author Organization [facility] Address [address] [place] [address] Phone Care Team Providers Care Deckhand Engineer Name Role Phone Quang Locke Unavailable [phone] Keith Craft MD Primary Care Provider [phone] Bri Rollins RN Unavailable Unavailable Silvio Schulte MD Unavailable [phone] Bri Rollins RN Unavailable Unavailable Werner Swift MD Unavailable Liz Capellan DO Primary Care Provider [phone] Yasmin Restrepo MD Unavailable Jose Do MD Unavailable Reason for Visit * Reason Comments Medication Refill Encounter Details Date Type Department Care Team (Late st Contact Info) Description 09/28/2020 Refill [facility] [address] [place] [address] Keith Craft MD [address]1 [place] [address] Medication Refill Social History Tobacco [...] Outpatient Visits 3 months ago Mixed hyperlipidemia [facility] Keith Lemus MD 5 months ago Pneumonia of right upper lobe due to infectious organism [facility] Keith Lemus MD 8 months ago Acute non-recurrent maxillary sinusitis [facility] Keith Lemus MD 11 months ago Chronic prescription opiate use [facility] Keith Lemus MD 1 year ago 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 [facility] Keith Lemus MD Upcoming Appointments Future Appointments In 5 days Keith Craft MD [facility] YULIA Mckeon LIVESTOCK SPECULATOR - Recent and Past Visits Recent Visits [...] Outpatient Visits 3 months ago Mixed hyperlipidemia [facility] Keith Lemus MD 5 months ago Pneumonia of right upper lobe due to infectious organism [facility] Keith Lemus MD 8 months ago Acute non-recurrent maxillary sinusitis [facility] Keith Lemus MD 11 months ago Chronic prescription opiate use [facility] - Keith Jenkins MD 1 year ago 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 [facility] Keith Lemus MD Upcoming Appointments Future Appointments In 5 days Keith Craft MD [facility] Maximiliano Tesfaye [facility] LIVESTOCK SPECULATOR - Recent and Past Visits Recent Visits Date Type Provider Dept 06/07/20 Office Visit Keith Craft MD [facility] 04/25/20 Office Visit Keith Craft MD [facility] 02/02/20 Office Visit Keith Craft MD [facility] 11/02/19 Office Visit Keith Craft MD [facility] 07/27/19 Office Visit Keith Craft MD [facility] [place] Showing recent visits within past 460 days with a meds authorizing provider and meeting all other requirements Future Appointments Date Type Provider Dept 10/04/20 Appointment Keith Craft MD [facility] [place] Showing future appointments within next 90 days with a meds authorizing provider and meeting all other requirements documented in this encounter Plan of Treatment Upcoming Encounters Date Type Department Care Team (Late st Contact Info) Description 12/04/2024 12:45 PM CDT Office Visit [facility] Medical [facility] - Family Medicine - [place] [address]2 [place] [address] Ana Vivar, REBECCA, FLUXER [address] [address] 12/09/2024 11:15 AM CDT Office Visit [facility] - General Surgery - [place] #[address] [address] Jose Do MD #[address] [address] 01/04/2025 1:30 PM CDT Office Visit [facility] - Pulmonology & Sleep Medicine - [place] #2 [place] [address] Werner Swift MD #2 [facility] [place] [address] 03/01/2025 1:30 PM CDT Office Visit [facility] - Endocrinology - [place] #2 [place] [address] Yasmin Restrepo MD #[address] [facility] [address] [place] [address] 05/13/2025 1:20 PM SCREENING TECHNICIAN Office Visit [facility] - [place] [address] [place] [address] Liz Capellan, DO [address] [facility] [address] [place] [address] documented as of this encounter Visit Diagnoses Not on filedocumented in this encounter Additional Health Concerns Infection Onset Date Last Indicated Resolved Time COVID - 19 01/25/2021 01/25/2021 01/31/2021 8:10 AM CDT Respiratory Rule Out - RPA 01/30/2021 01/30/2021 0 02/01/2021 12:45 AM CDT COVID - 19 07/23/2021 07/23/2021 07/24/2021 6:31 AM SCREENING TECHNICIAN COVID - 19 10/19/2021 10/19/2021 10/20/2021 7:45 AM CDT Respiratory Rule Out - RPA 10/19/2021 10/19/2021 0 10/20/2021 2:10 PM CDT Stenotrophomonas maltophilia Comment:Must have a follow up respiratory sample to remove isolation/infection flag. 10/20/2021 10/20/2021 COVID - 19 04/20/2022 04/20/2022 04/30/2022 12:1 8 AM SCREENING TECHNICIAN COVID - 19 07/18/2022 07/18/2022 07/28/2022 12:1 6 AM SCREENING TECHNICIAN COVID - 19 08/21/2022 08/21/2022 08/22/2022 8:31 AM CDT Respiratory Rule Out - RPA 08/21/2022 08/21/2022 0 08/22/2022 3:21 PM CDT COVID - 19 04/18/2023 04/18/2023 04/28/2023 12:1 6 AM SCREENING TECHNICIAN COVID - 19 07/13/2023 07/13/2023 07/23/2023 12:1 6 AM SCREENING TECHNICIAN Respiratory Rule Out - RPA 03/17/2024 03/17/2024 1 3:36 PM CDT COVID - 19 04/27/2024 04/27/2024 04/27/2024 2:19 PM SCREENING TECHNICIAN Respiratory Rule-Out 07/24/2024 07/24/2024 025 2:29 PM SCREENING TECHNICIAN COVID - 19 07/24/2024 07/24/2024 07/24/2024 2:29 PM SCREENING TECHNICIAN COVID - 19 08/22/2024 08/22/2024 08/22/2024 11:4 6 PM CDT COVID - 19 09/03/2024 09/03/2024 09/03/2024 12:4 7 PM CDT Assessment Noted Time PHQ-9 Depression Total Score: 2 06/07/19 2:34 PM SCREENING TECHNICIAN documented as of this encounter Care Teams Deckhand Engineer Relationship Specialty Start Date End Date Keith Carft MD PCP - General Family Medicine 01/14/19 12/26/23 Liz Capellan DO [address] [address] PCP - General Family Medicine 12/27/23 Quang Locke DO Gastroenterology 01/18/16 Bri Rollins RN [place] Donor Services Coordinator 03/07/21 05/22/23 [place] [id number] [address] 05/25/21 Bri Rollins RN [place] Nurse Donor Services Coordinator 03/07/21 05/23/23 Werner Swift MD #2 [place] [address] Consulting Physician Pulmonary Disease 01/30/22 Yasmin Restrepo MD #[address] [address] Consulting Physician Endocrinology 07/20/24 Jose Do MD #[address] [id number] Consulting Physician Colon and Rectal Surgery 10/12/24 documented as of this encounter
--- OUTSIDE RECORDS SUMMARY | 2024-12-02 13:24 | XMS_ITS | Encounter Summary ---
Author Organization [facility] Address [address] [place] [address] Phone Care Team Providers Care Brush Loader And Handle Attacher Name Role Phone Quang Locke Unavailable [phone] Keith Craft MD Primary Care Provider [phone] Bri Rollins RN Unavailable Unavailable Silvio Schulte MD Unavailable [phone] Bri Rollins RN Unavailable Unavailable Werner Swift MD Unavailable Liz Capellan DO Primary Care Provider [phone] Yasmin Restrepo MD Unavailable Jose Do MD Unavailable Reason for Visit * Reason Onset Date Comments Medication Refill 08/24/2020 Encounter Details Date Type Department Care Team (Late st Contact Info) Description 08/24/[address] [facility] Medical Group - Family Medicine [facility] [address] [place] [address] Keith Craft MD [address]1 [place] [address] Medication Refill Social History Tobacco [...] COVID-19? No / Unsure 07/30/2020 3:25 PM CAMPAIGN COORDINATOR documented as of this encounter Miscellaneous Notes * Telephone Encounter - Keerthi Kline RN - 08/24/2020 8:49 AM CDT Medication failed the protocol, provider to review and approve the medication order if appropriate. Requested Prescriptions Pending Prescriptions Disp Refills UltiCare Mini Pen [place] 31G X 6 MM Misc 300 Each [...] physician/MARINO review. Refill encounter routed to nurse Teodoroscript's pool for processing. Prescriber action required. documented in this encounter Plan of Treatment Upcoming Encounters Date Type Department Care Team (Late st Contact Info) Description 12/04/2024 12:45 PM CDT Office Visit [facility] - Family Medicine - [place] #2 [place] [address] Ana Vivar, CIAIO LUMITE INJECTOR, FUNDRAISING DIRECTOR 2 [facility] [address] [place] [address] 12/09/2024 11:15 AM CDT [facility] [place] #2 [facility] [address] [place] [address] Jose Do MD #2 [facility] [address] [place] [address] 01/04/2025 1:30 PM CDT Office Visit [facility] - Pulmonology & Sleep Medicine - [place] #2 [place] [address] Werner Swift MD #2 [place] [address] 03/01/2025 1:30 PM CDT Office Visit [facility] - Endocrinology - [place] [address]2 [place] [address] Yasmin Restrepo MD #[address] [place] [address] 05/13/2025 1:20 PM CAMPAIGN COORDINATOR Office Visit [facility] Family Medicine - [place] [address]2 [place] [address] Liz Capellan, DO 2 [facility] [address] [place] [address] documented as of this encounter Visit Diagnoses [...] - 19 07/23/2021 07/23/2021 07/24/2021 6:31 AM CAMPAIGN COORDINATOR COVID - 19 10/19/2021 10/19/2021 10/20/2021 7:45 AM CDT Respiratory Rule Out - RPA 10/19/2021 10/19/2021 0 10/20/2021 2:10 PM CDT Stenotrophomonas maltophilia Comment:Must have a follow up respiratory sample to remove isolation/infection flag. 10/20/2021 10/20/2021 COVID - 19 04/20/2022 04/20/2022 04/30/2022 12:1 8 AM CAMPAIGN COORDINATOR COVID - 19 07/18/2022 07/18/2022 07/28/2022 12:1 6 AM CAMPAIGN COORDINATOR COVID - 19 08/21/2022 08/21/2022 08/22/2022 8:31 AM CDT Respiratory Rule Out - RPA 08/21/2022 08/21/2022 0 08/22/2022 3:21 PM CDT COVID - 19 04/18/2023 04/18/2023 04/28/2023 12:1 6 AM CAMPAIGN COORDINATOR COVID - 19 07/13/2023 07/13/2023 07/23/2023 12:1 6 AM CAMPAIGN COORDINATOR Respiratory Rule Out - RPA 03/17/2024 03/17/2024 1 3:36 PM CDT COVID - 19 04/27/2024 04/27/2024 04/27/2024 2:19 PM CAMPAIGN COORDINATOR Respiratory Rule-Out 07/24/2024 07/24/2024 025 2:29 PM CAMPAIGN COORDINATOR COVID - 19 07/24/2024 07/24/2024 07/24/2024 2:29 PM CAMPAIGN COORDINATOR COVID - 19 08/22/2024 08/22/2024 08/22/2024 11:4 6 PM CDT COVID - 19 09/03/2024 09/03/2024 09/03/2024 12:4 7 PM CDT Assessment Noted Time PHQ-9 Depression Total Score: 2 06/07/19 2:34 PM CAMPAIGN COORDINATOR documented as of this encounter Care Teams Brush Loader And Handle Attacher Relationship Specialty Start Date End Date Keith Craft MD PCP - General Family Medicine 01/14/19 12/26/23 Liz Capellan DO [address] [address] PCP - General Family Medicine 12/27/23 Quang Locke DO Gastroenterology 01/18/16 Bri Rollins RN [place] Council On Aging Director 03/07/21 05/22/23 [place] [address] [place] [address] 05/25/21 Bri Rollins RN [place] Nurse Council On Aging Director 03/07/21 05/23/23 Werner Swift MD #2 [place] [address] Consulting Physician Pulmonary Disease 01/30/22 Yasmin Restrepo MD #[address] [address] Consulting Physician Endocrinology 07/20/24 Jose Do MD #[address] [address] Consulting Physician Colon and Rectal Surgery 10/12/24 documented as of this encounter
--- OUTSIDE RECORDS SUMMARY | 2024-12-02 13:24 | XMS_ITS | Encounter Summary ---
Author Organization [facility] Address [address] [place] [address] Phone Care Team Providers Care Contract Accountant Name Role Phone Quang Locke Unavailable [phone] Keith Craft MD Primary Care Provider [phone] Bri Rollins RN Unavailable Unavailable Silvio Schulte MD Unavailable [phone] Bri Rollins RN Unavailable Unavailable Werner Swift MD Unavailable Liz aCpellan DO Primary Care Provider [phone] Yasmin Restrepo MD Unavailable Jose Do MD Unavailable Reason for Visit * Reason Comments Medication Refill Encounter Details Date Type Department Care Team (Late st Contact Info) Description 09/12/2020 Refill [facility] Medical Group - Family Medicine [facility] [place] #[address] [place] [address] Keith Craft MD #1 [place] [address] Medication Refill Social History Tobacco Use Types [...] Pending Prescriptions Disp Refills ergocalciferol (VITAMIN D) 14721 UNIT Capsule [Pharmacy Med Name: VITAMIN D2 1.25MG(50,000 UNIT)] 12 Capsule 2 Sig: TAKE 1 CAPSULE BY MOUTH ONE TIME PER WEEK healthfinch Off-Protocol Failed - 09/12/2020 12:14 AM Failed - Medication not assigned to a protocol, review manually. Passed - Valid encounter within last 12 months Past Office Visits Recent Outpatient Visits 3 months ago Mixed hyperlipidemia [facility] Keith Lemus MD 4 months ago Pneumonia of right upper lobe due to infectious organism [facility] Keith Lemus MD 7 months ago Acute non-recurrent maxillary sinusitis [facility] Keith Lemus MD 10 months ago Chronic prescription opiate use [facility] Keith Lemus MD 1 year ago Coronary artery disease involving [place] coronary artery of [place] heart without angina pectoris [facility] Keith Lemus MD Upcoming Appointments Future Appointments In 3 weeks Keith Craft MD [facility] KEG WASHER - Recent and Past Visits Recent Visits Date Type Provider Dept 06/07/20 Office Visit Keith Craft MD [facility] 04/25/20 Office Visit Keith Craft MD [facility] 02/02/20 Office Visit Keith Craft MD [facility] 11/02/19 Office Visit Keith Craft MD [facility] 07/27/19 Office Visit Keith Craft MD [facility] 06/10/19 Office Visit Brie Denis, N[facility] Show[facility] recent visits within past 460 days with a meds authorizing provider and meeting all other requirements Future Appointments Date Type Provider Dept 10/04/20 Appointment Keith Craft MD [facility] [place] Showing future appointments within next 90 days with a meds authorizing provider and meeting all other requirements documented in this encounter Plan of Treatment Upcoming Encounters Date Type Department Care Team (Late st Contact Info) Description 12/04/2024 12:45 PM CDT Office Visit [facility] Medical [facility] - Family Medicine - [place] #2 [place] [address] Ana Vivar, REBECCA, CHANGE BOOTH ATTENDANT [address] [address] 12/09/2024 11:15 AM CDT Office Visit [facility] Medical [facility] - General Surgery - [place] #[address] [place] [address] Jose Do MD #[address] [address] 01/04/2025 1:30 PM CDT Office Visit [facility] Medical [facility] - Pulmonology & Sleep Medicine - [place] #2 [place] [address] Werner Swift MD #2 [place] [address] 03/01/2025 1:30 PM CDT Office Visit [facility] Medical Group - Endocrinology - [place] #2 [facility] [place] [address] Yasmin Restrepo MD #2 [facility] [address] [place] [address] 05/13/2025 1:20 PM HOSPICE SPIRITUAL CARE COORDINATOR Office Visit [facility] - [place] #2 [place] [address] Liz Capellan, DO 2 [facility] [address] [place] [address] documented as of this encounter Visit Diagnoses Not on filedocumented in this encounter Additional Health Concerns Infection Onset Date Last Indicated Resolved Time COVID - 19 01/25/2021 01/25/2021 01/31/2021 8:10 AM CDT Respiratory Rule Out - RPA 01/30/2021 01/30/2021 0 02/01/2021 12:45 AM CDT COVID - 19 07/23/2021 07/23/2021 07/24/2021 6:31 AM HOSPICE SPIRITUAL CARE COORDINATOR COVID - 19 10/19/2021 10/19/2021 10/20/2021 7:45 AM CDT Respiratory Rule Out - RPA 10/19/2021 10/19/2021 0 10/20/2021 2:10 PM CDT Stenotrophomonas maltophilia Comment:Must have a follow up respiratory sample to remove isolation/infection flag. 10/20/2021 10/20/2021 COVID - 19 04/20/2022 04/20/2022 04/30/2022 12:1 8 AM HOSPICE SPIRITUAL CARE COORDINATOR COVID - 19 07/18/2022 07/18/2022 07/28/2022 12:1 6 AM HOSPICE SPIRITUAL CARE COORDINATOR COVID - 19 08/21/2022 08/21/2022 08/22/2022 8:31 AM CDT Respiratory Rule Out - RPA 08/21/2022 08/21/2022 0 08/22/2022 3:21 PM CDT COVID - 19 04/18/2023 04/18/2023 04/28/2023 12:1 6 AM HOSPICE SPIRITUAL CARE COORDINATOR COVID - 19 07/13/2023 07/13/2023 07/23/2023 12:1 6 AM HOSPICE SPIRITUAL CARE COORDINATOR Respiratory Rule Out - RPA 03/17/2024 03/17/2024 1 3:36 PM CDT COVID - 19 04/27/2024 04/27/2024 04/27/2024 2:19 PM HOSPICE SPIRITUAL CARE COORDINATOR Respiratory Rule-Out 07/24/2024 07/24/2024 2:29 PM HOSPICE SPIRITUAL CARE COORDINATOR COVID - 19 07/24/2024 07/24/2024 07/24/2024 2:29 PM HOSPICE SPIRITUAL CARE COORDINATOR COVID - 19 08/22/2024 08/22/2024 08/22/2024 11:4 6 PM CDT COVID - 19 09/03/2024 09/03/2024 09/03/2024 12:4 7 PM CDT Assessment Noted Time PHQ-9 Depression Total Score: 2 06/07/19 21 2:34 PM HOSPICE SPIRITUAL CARE COORDINATOR documented as of this encounter Care Teams Contract Accountant Relationship Specialty Start Date End Date Keith Craft MD PCP - General Family Medicine 01/14/19 12/26/23 Liz Capellan DO [address] [address] PCP - General Family Medicine 12/27/23 Quang Locke DO Gastroenterology 01/18/16 Bri Rollins RN [place] Clamp Operator 03/07/21 05/22/23 [place] [address] [address] 05/25/21 Bri Rollins, RN [place] Nurse Clamp Operator 03/07/21 05/23/23 Werner Swift MD #2 [place] [address] Consulting Physician Pulmonary Disease 01/30/22 Yasmin Restrepo MD #[address] [address] Consulting Physician Endocrinology 07/20/24 Jose Do MD #[address] [address] Consulting Physician Colon and Rectal Surgery 10/12/24 documented as of this encounter
--- OUTSIDE RECORDS SUMMARY | 2024-12-02 13:24 | XMS_ITS | Encounter Summary ---
Author Organization [facility] Address [address] [place] [address] Phone Care Team Providers Care Thermo Processor Name Role Phone Quang Locke Unavailable [phone] Keith Craft MD Primary Care Provider [phone] Bri Rollins RN Unavailable Unavailable Silvio Schulte MD Unavailable [phone] Bri Rollins RN Unavailable Unavailable Werner Swift MD Unavailable Liz Capellan DO Primary Care Provider [phone] Yasmin Restrepo MD Unavailable Jose Do MD Unavailable Reason for Visit * Reason Onset Date Comments Medication Refill 01/06/2022 Encounter Details Date Type Department Care Team (Late st Contact Info) Description 01/06/2022 Telephone [facility] [address] [place] [address] Keith Craft MD #1 [place] [address] Medication Refill Social History Tobacco [...] CDT Patient calling to request refill of [place]. Pharmacy verified. States she will get a delivery from the pharmacy on Saturday, which should be the fill date of thismedication. [facility] her appointment to be seen by Keith Craft MD was changed from end of November to February by KATEY Swain. BSN. [facility] was told no need to be seen until then. Patient asking if there is anything needed for this order to be refilled? Please review documented in this encounter Plan of Treatment Upcoming Encounters Date Type Department Care Team (Late st Contact Info) Description 12/04/2024 12:45 PM CDT Office Visit [facility] Medical Group - Family Medicine - [place] #2 [place] [address] Ghazala, Ana N, ECHOCARDIOGRAPHER, BUSINESS ANALYST CONSULTANT 2 [facility]. [address] [place] [address] 12/09/2024 11:15 AM CDT Office Visit [facility] - General Surgery - [place] #2 [facility] [address] [place] [address] Jose Do MD #2 [facility] [address] [place] [address] 01/04/2025 1:30 PM CDT Office Visit [facility] - Pulmonology & Sleep Medicine - [place] #2 [place] [address] Werner Swift MD #2 [place] [address] 03/01/2025 1:30 PM CDT Office Visit [facility] - Endocrinology - [place] #2 [place] [address] Yasmin Restrepo MD #[address] [address] 05/13/2025 1:20 PM SEMICONDUCTOR PACKAGES TESTER Office Visit [facility] Family Medicine - [place] #2 [place] [address] Liz Capellan, DO [address] [address] documented as of this encounter Goals Goal [...] Zones/Action plan education. I will notify my Learn To Swim Instructor if my symptoms fall in the [...] 19 04/20/2022 04/20/2022 04/30/2022 12:1 8 AM SEMICONDUCTOR PACKAGES TESTER COVID - 19 07/18/2022 07/18/2022 07/28/2022 12:1 6 AM SEMICONDUCTOR PACKAGES TESTER COVID - 19 08/21/2022 08/21/2022 08/22/2022 8:31 AM CDT Respiratory Rule Out - RPA 08/21/2022 08/21/2022 0 08/22/2022 3:21 PM CDT COVID - 19 04/18/2023 04/18/2023 04/28/2023 12:1 6 AM SEMICONDUCTOR PACKAGES TESTER COVID - 19 07/13/2023 07/13/2023 07/23/2023 12:1 6 AM SEMICONDUCTOR PACKAGES TESTER Respiratory Rule Out - RPA 03/17/2024 03/17/2024 1 3:36 PM CDT COVID - 19 04/27/2024 04/27/2024 04/27/2024 2:19 PM SEMICONDUCTOR PACKAGES TESTER Respiratory Rule-Out 07/24/2024 07/24/2024 025 2:29 PM SEMICONDUCTOR PACKAGES TESTER COVID - 19 07/24/2024 07/24/2024 07/24/2024 2:29 PM SEMICONDUCTOR PACKAGES TESTER COVID - 19 08/22/2024 08/22/2024 08/22/2024 11:4 6 PM CDT COVID - 19 09/03/2024 09/03/2024 09/03/2024 12:4 7 PM CDT Assessment Noted Time PHQ-9 Depression Total Score: 1 03/07/20 21 10:29 AM CDT documented as of this encounter Care Teams Thermo Processor Relationship Specialty Start Date End Date Keith Craft MD PCP - General Family Medicine 01/14/19 12/26/23 Liz Capellan DO 2 [facility] [address] [place] [address] PCP - General Family Medicine 12/27/23 Quang Locke DO Gastroenterology 01/18/16 Bri Rollins RN [place] Learn To Swim Instructor 03/07/21 05/22/23 [place] [id number] [address] 05/25/21 Bri Rollins RN [place] Nurse Learn To Swim Instructor 03/07/21 05/23/23 Werner Swift MD #2 [place] [address] Consulting Physician Pulmonary Disease 01/30/22 Yasmin Restrepo MD #[address] [address] Consulting Physician Endocrinology 07/20/24 Jose Do MD #[address] [address] Consulting Physician Colon and Rectal Surgery 10/12/24 documented as of this encounter
--- OUTSIDE RECORDS SUMMARY | 2024-12-02 13:24 | XMS_ITS | Encounter Summary ---
Author Organization [facility] Address [address] [place] [address] Phone Care Team Providers Care Drawing Checker Name Role Phone Quang Locke DO Unavailable [phone] Keith Craft MD Primary Care Provider [phone] Silvio Schulte MD Unavailable [phone] Werner Swift MD Unavailable Liz Capellan DO Primary Care Provider [phone] Yasmin Restrepo MD Unavailable Jose Do MD Unavailable Reason for Visit * Reason Comments Medication Refill Encounter Details Date Type Department Care Team (Late st Contact Info) Description 08/07/2023 Refill [facility] #2 [place] [address] Keith Craft MD #1 [place] [address] Medication Refill Social History Tobacco Use Types Packs/Day Years Used Date Smoking Tobacco: Former Cigarettes 2 50 1 - 03/16/2018 Smokeless Tobacco: Never Comments:Still uses nictoine patches and gum Alcohol Use Standard Drinks/Week Comments No 0 (1 standard drink = 0.6 oz pur e alcohol) [facility] Utilities Answer Date Recorded In [...] often do you attend chur ch or roman catholic services? Never 07/13/2023 Do you belong to any clubs o r organizations such as buddhism groups, unions, fraternal or athletic groups, or [...] Total Score - Questions 1-9 0 08/2021 [facility] [place] of Occupat ional Health - Occupational Stress [...] Tesfaye 09/10/22 Office Visit Keith Craft MD [facility] Showing recent visits within past 365 days and meeting all other requirements Future Appointments Date Type Provider Dept 08/15/23 Appointment Keith Craft MD [facility] Showing future appointments within next 90 days and meeting all other requirements documented in this encounter Plan of Treatment Upcoming Encounters Date Type Department Care Team (Late st Contact Info) Description 12/04/2024 12:45 PM CDT Office Visit [facility] Family Medicine - [place] #2 [place] [address] Ana Vivar APRN, TECHNICAL SUPPORT AGENT [address] [facility] [address] [place] [address] 12/09/2024 11:15 AM CDT Office Visit [facility] - General Surgery - [place] #2 [facility] [address] [place] [address] Jose Do MD #2 [facility] [address] [place] [address] 01/04/2025 1:30 PM CDT Office Visit [facility] - Pulmonology & Sleep Medicine - [place] #2 [place] [address] Werner Swift MD #2 [facility] [address] 03/01/2025 1:30 PM CDT Office Visit [facility] - Endocrinology - [place] #2 [place] [address] Yasmin Restrepo MD #2 [facility] [address] [place] [address] 05/13/2025 1:20 PM WATCH HAIRSPRING ASSEMBLER Office Visit [facility] #2 [place] [address] Liz Capellan, DO 2 [facility]. [address] [place] [address] documented as of this encounter Goals Goal [...] Zones/Action plan education. I will notify my Resolute Professional if my symptoms fall in the y [...] - 19 04/27/2024 04/27/2024 04/27/2024 2:19 PM WATCH HAIRSPRING ASSEMBLER Respiratory Rule-Out 07/24/2024 07/24/2024 025 2:29 PM WATCH HAIRSPRING ASSEMBLER COVID - 19 07/24/2024 07/24/2024 07/24/2024 2:29 PM WATCH HAIRSPRING ASSEMBLER COVID - 19 08/22/2024 08/22/2024 08/22/2024 11:4 6 PM CDT COVID - 19 09/03/2024 09/03/2024 09/03/2024 12:4 7 PM CDT Assessment Noted Time PHQ-9 Depression Total Score: 1 03/07/20 21 10:29 AM CDT documented as of this encounter Care Teams Drawing Checker Relationship Specialty Start Date End Date Keith Craft MD PCP - General Family Medicine 01/14/19 12/26/23 Liz Capellan DO [address] [address] PCP - General Family Medicine 12/27/23 Quang Locke DO Gastroenterology 01/18/16 [place] [id number] [address] 05/25/21 Werner Swift MD #2 [place] [address] Consulting Physician Pulmonary Disease 01/30/22 Yasmin Restrepo MD #[address] [address] Consulting Physician Endocrinology 07/20/24 Jose Do MD #[address] [id number] Consulting Physician Colon and Rectal Surgery 10/12/24 documented as of this encounter
--- OUTSIDE RECORDS SUMMARY | 2024-12-02 13:24 | XMS_ITS | Encounter Summary ---
Author Organization [facility] Address [address] [address] Phone Care Team Providers Care Tax Evaluator Name Role Phone Quang Locke Unavailable [phone] Keith Craft MD Primary Care Provider [phone] Bri Rollins RN Unavailable Unavailable Silvio Schulte MD Unavailable [phone] Bri Rollins RN Unavailable Unavailable Werner Swift MD Unavailable Liz Capellan DO Primary Care Provider [phone] Yasmin Restrepo MD Unavailable Jose Do MD Unavailable Reason for Visit * Reason Comments Medication Refill Encounter Details Date Type Department Care Team (Late st Contact Info) Description 05/25/2022 Refill [facility] #2 [place] [address] Keith Craft MD #1 [place] [address] Medication Refill Social History Tobacco Use Types [...] Coronavirus/COVID-19? No / Unsure 05/01/2022 1:41 PM MEDICAL RECORDS LIBRARY PROFESSOR documented as of this encounter Miscellaneous Notes [...] RETINAL IMAGING [facility] [place] 03/02/22 Office Visit Keith Craft MD [facility] [place] 11/03/21 Office Visit Keith Craft MD [facility] [place] 10/19/21 Office Visit Keith Craft MD [facility] [place] 10/05/21 Office Visit Keith Craft MD [facility] [place] 09/08/21 Office Visit Brie Denis, [facility] [place] 08/14/21 Office Visit Keith Craft MD [facility] 07/31/21 Office Visit Keith [facility] MD [facility] 05/25/21 Office Visit Marcin Anderson APRN, ABSTRACTER [facility] Showing recent visits within past 365 days and meeting all other requirements Future Appointments Date Type Provider Dept 06/07/22 Appointment Keith Craft MD [facility] Showing future appointments within next 90 days and meeting all other requirements [place] RECORDS LIBRARY PROFESSOR documented in this encounter Plan of Treatment Upcoming Encounters Date Type Department Care Team (Late st Contact Info) Description 12/04/2024 12:45 PM CDT Office Visit [facility] Medical [facility] - Family Medicine - [place] #2 [facility] [place] [address] Ana Vivar APRN, ABSTRACTER 2 [facility] [address] [place] [address] 12/09/2024 11:15 AM CDT Office Visit [facility] Medical [facility] - General Surgery - [place] #2 [facility] [address] [place] [address] Jose Do MD #2 [facility] [address] [place] [address] 01/04/2025 1:30 PM CDT Office Visit [facility] - Pulmonology & Sleep Medicine - [place] #2 [place] [address] Werner Swift MD #2 [facility] [place] [address] 03/01/2025 1:30 PM CDT Office Visit [facility] Medical [facility] - Endocrinology - [place] #2 [place] [address] Yasmin Restrepo MD #2 [facility] [address] [place] [address] 05/13/2025 1:20 PM MEDICAL RECORDS LIBRARY PROFESSOR Office Visit [facility] Medical Group - Family [facility] - [place] #2 [place] [address] Liz Capellan, DO 2 . [address], [place]. [address] [place] [address] documented as of this encounter Goals Goal [...] Zones/Action plan education. I will notify my Aquatic Scientist if my symptoms fall in the [...] 19 07/18/2022 07/18/2022 07/28/2022 12:1 6 AM MEDICAL RECORDS LIBRARY PROFESSOR COVID - 19 08/21/2022 08/21/2022 08/22/2022 8:31 AM CDT Respiratory Rule Out - RPA 08/21/2022 08/21/2022 0 08/22/2022 3:21 PM CDT COVID - 19 04/18/2023 04/18/2023 04/28/2023 12:1 6 AM MEDICAL RECORDS LIBRARY PROFESSOR COVID - 19 07/13/2023 07/13/2023 07/23/2023 12:1 6 AM MEDICAL RECORDS LIBRARY PROFESSOR Respiratory Rule Out - RPA 03/17/2024 03/17/2024 1 3:36 PM CDT COVID - 19 04/27/2024 04/27/2024 04/27/2024 2:19 PM MEDICAL RECORDS LIBRARY PROFESSOR Respiratory Rule-Out 07/24/2024 07/24/2024 025 2:29 PM MEDICAL RECORDS LIBRARY PROFESSOR COVID - 19 07/24/2024 07/24/2024 07/24/2024 2:29 PM MEDICAL RECORDS LIBRARY PROFESSOR COVID - 19 08/22/2024 08/22/2024 08/22/2024 11:4 6 PM CDT COVID - 19 09/03/2024 09/03/2024 09/03/2024 12:4 7 PM CDT Assessment Noted Time PHQ-9 Depression Total Score: 1 03/07/20 21 10:29 AM CDT documented as of this encounter Care Teams Tax Evaluator Relationship Specialty Start Date End Date Keith Craft MD PCP - General Family Medicine 01/14/19 12/26/23 Liz Capellan DO 2 [facility] [address] [address] PCP - General Family Medicine 12/27/23 Quang Locke DO Gastroenterology 01/18/16 Bri Rollins, RN [place] Aquatic Scientist 03/07/21 05/22/23 [place] [id number] [address] 05/25/21 Bri Rollins RN [place] Nurse Aquatic Scientist 03/07/21 05/23/23 Werner Swift MD #2 [place] [address] Consulting Physician Pulmonary Disease 01/30/22 Yasmin Restrepo MD #[address] [address] Consulting Physician Endocrinology 07/20/24 Jose Do MD #[address] [id number] Consulting Physician Colon and Rectal Surgery 10/12/24 documented as of this encounter
--- OUTSIDE RECORDS SUMMARY | 2024-12-02 13:24 | XMS_ITS | Encounter Summary ---
Author Organization [facility] Address [address] [place] [address] Phone Care Team Providers Care Formula Clerk Name Role Phone Quang Locke Unavailable [phone] Keith Craft MD Primary Care Provider [phone] Bri Rollins RN Unavailable Unavailable Silvio Schulte MD Unavailable [phone] Bri Rollins RN Unavailable Unavailable Werner Swift MD Unavailable Liz Capellan DO Primary Care Provider [phone] Yasmin Restrepo MD Unavailable Jose Do MD Unavailable Reason for Visit * Reason Comments Medication Refill Encounter Details Date Type Department Care Team (Late st Contact Info) Description 01/22/2022 Refill [facility] Medical [address] [place] [address] Keith Craft MD #1 [place] [address] Medication Refill Social History Tobacco Use Types [...] 12/04/2024 12:45 PM CDT Office Visit [facility] - Family Medicine - [place] #2 [place] [address] Ana Vivar, FISHER HAND LINE, CYCLE CONSULTANT 2 [facility] [address] [place] [address] 12/09/2024 11:15 AM CDT Office Visit [facility] - General Surgery - [place] #2 [facility] 305 [place] [address] Jose Do MD #2 [facility] [address] [place] [address] 01/04/2025 1:30 PM CDT Office Visit [facility] - Pulmonology & Sleep Medicine - [place] #2 [place] [address] Werner Swift MD #2 [place] [address] 03/01/2025 1:30 PM CDT Office Visit [facility] Endocrinology - [place] #2 [place] [address] Yasmin Restrpeo MD #2 [facility] [address] [place] [address] 05/13/2025 1:20 PM VICE ADMIRAL Office Visit [facility] Family Medicine - [place] #2 [facility] [place] [address] Liz Capellan, DO [address] [address] documented as of this encounter Goals Goal [...] Zones/Action plan education. I will notify my Material Planner if my symptoms fall in the y [...] 19 04/20/2022 04/20/2022 04/30/2022 12:1 8 AM VICE ADMIRAL COVID - 19 07/18/2022 07/18/2022 07/28/2022 12:1 6 AM VICE ADMIRAL COVID - 19 08/21/2022 08/21/2022 08/22/2022 8:31 AM CDT Respiratory Rule Out - RPA 08/21/2022 08/21/2022 0 08/22/2022 3:21 PM CDT COVID - 19 04/18/2023 04/18/2023 04/28/2023 12:1 6 AM VICE ADMIRAL COVID - 19 07/13/2023 07/13/2023 07/23/2023 12:1 6 AM VICE ADMIRAL Respiratory Rule Out - RPA 03/17/2024 03/17/2024 1 3:36 PM CDT COVID - 19 04/27/2024 04/27/2024 04/27/2024 2:19 PM VICE ADMIRAL Respiratory Rule-Out 07/24/2024 07/24/2024 025 2:29 PM VICE ADMIRAL COVID - 19 07/24/2024 07/24/2024 07/24/2024 2:29 PM VICE ADMIRAL COVID - 19 08/22/2024 08/22/2024 08/22/2024 11:4 6 PM CDT COVID - 19 09/03/2024 09/03/2024 09/03/2024 12:4 7 PM CDT Assessment Noted Time PHQ-9 Depression Total Score: 1 03/07/20 21 10:29 AM CDT documented as of this encounter Care Teams Formula Clerk Relationship Specialty Start Date End Date Keith Craft MD PCP - General Family Medicine 01/14/19 12/26/23 Liz Capellan DO [address] [address] PCP - General Family Medicine 12/27/23 Quang Locke DO Gastroenterology 01/18/16 Bri Rollins RN [place] Material Planner 03/07/21 05/22/23 [place] [id number] [address] 05/25/21 Bri Rollins, KATEY [place] Nurse Material Planner 03/07/21 05/23/23 Werner Swift MD #2 [place] [address] Consulting Physician Pulmonary Disease 01/30/22 Yasmin Restrepo MD #[address] [address] Consulting Physician Endocrinology 2/24/25 Jose Do MD #2 [place] [address] Consulting Physician Colon and Rectal Surgery 10/12/24 documented as of this encounter
--- OUTSIDE RECORDS SUMMARY | 2024-12-02 13:24 | XMS_ITS | Encounter Summary ---
Author Organization [facility] Address [address] [place] [address] Phone Care Team Providers Care Correctional Security Officer Name Role Phone Quang Locke Unavailable [phone] Keith Craft MD Primary Care Provider [phone] Bri Rollins RN Unavailable Unavailable Silvio Schulte MD Unavailable [phone] Bri Rollins RN Unavailable Unavailable Werner Swift MD Unavailable Liz Capellan DO Primary Care Provider [phone] Yasmin Restrepo MD Unavailable Jose Do MD Unavailable Reason for Visit * Reason Comments Medication Refill Encounter Details Date Type Department Care Team (Late st Contact Info) Description 03/19/2022 Refill [facility] Medical Group - Family Medicine [facility] #2 [place] [address] Keith Craft MD #1 [place] [address] Medication Refill Social History Tobacco Use Types [...] Office Visit [facility] Medical [facility] - Family Medicine - [place] #2 [place] [address] Ana Vivar, INSOLE AND HEEL STIFFENER, AGENCY LEGAL COUNSEL 2 [facility]. [address] [place] [address] 12/09/2024 11:15 AM CDT Office Visit [facility] - General Surgery - [place] #2 [facility] [address] [place] [address] Jose Do MD #2 [facility] [address] [place] [address] 01/04/2025 1:30 PM CDT Office Visit [facility] - Pulmonology & Sleep Medicine - [place] #2 [place] [address] Werner Swift MD #2 [place] [address] 03/01/2025 1:30 PM CDT Office Visit [facility] - Endocrinology - [place] #2 [place] [address] Yasmin Restrepo MD #[address] [address] 05/13/2025 1:20 PM PAYROLL ADMINISTRATOR Office Visit [facility] Family Medicine - [place] #2 [place] [address] Liz Capellan, DO 2 [facility]. [address] [place] [address] documented as of this encounter Goals Goal [...] Zones/Action plan education. I will notify my Peripheral Vascular Tech if my symptoms fall in the [...] 19 04/20/2022 04/20/2022 04/30/2022 12:1 8 AM PAYROLL ADMINISTRATOR COVID - 19 07/18/2022 07/18/2022 07/28/2022 12:1 6 AM PAYROLL ADMINISTRATOR COVID - 19 08/21/2022 08/21/2022 08/22/2022 8:31 AM CDT Respiratory Rule Out - RPA 08/21/2022 08/21/2022 0 08/22/2022 3:21 PM CDT COVID - 19 04/18/2023 04/18/2023 04/28/2023 12:1 6 AM PAYROLL ADMINISTRATOR COVID - 19 07/13/2023 07/13/2023 07/23/2023 12:1 6 AM PAYROLL ADMINISTRATOR Respiratory Rule Out - RPA 03/17/2024 03/17/2024 1 3:36 PM CDT COVID - 19 04/27/2024 04/27/2024 04/27/2024 2:19 PM PAYROLL ADMINISTRATOR Respiratory Rule-Out 07/24/2024 07/24/2024 025 2:29 PM PAYROLL ADMINISTRATOR COVID - 19 07/24/2024 07/24/2024 07/24/2024 2:29 PM PAYROLL ADMINISTRATOR COVID - 19 08/22/2024 08/22/2024 08/22/2024 11:4 6 PM CDT COVID - 19 09/03/2024 09/03/2024 09/03/2024 12:4 7 PM CDT Assessment Noted Time PHQ-9 Depression Total Score: 1 03/07/20 10:29 AM CDT documented as of this encounter Care Teams Correctional Security Officer Relationship Specialty Start Date End Date Keith Craft MD PCP - General Family Medicine 01/14/19 12/26/23 Liz Capellan DO 2 [facility] [address] [place] [address] PCP - General Family Medicine 12/27/23 Quang Locke DO Gastroenterology 01/18/16 Bri Rollins RN [place] Peripheral Vascular Tech 03/07/21 05/22/23 [place] [address] [address] 05/25/21 Bri Rollins, KATEY [place] Nurse Peripheral Vascular Tech 03/07/21 05/23/23 Werner Swift MD #2 [place] [address] Consulting Physician Pulmonary Disease 01/30/22 Yasmin Restrepo MD #[address] [address] Consulting Physician Endocrinology 07/20/24 Jose Do MD #[address] [address] Consulting Physician Colon and Rectal Surgery 10/12/24 documented as of this encounter
--- OUTSIDE RECORDS SUMMARY | 2024-12-02 13:24 | XMS_ITS | Encounter Summary ---
Author Organization [facility] Address [address] [place] [address] Phone Care Team Providers Care Key Account Director Name Role Phone Quang Locke Unavailable [phone] Keith Craft MD Primary Care Provider [phone] Bri Rollins RN Unavailable Unavailable Silvio Schulte MD Unavailable [phone] Bri Rollins RN Unavailable Unavailable Werner Swift MD Unavailable Liz Capellan DO Primary Care Provider [phone] Yasmin Restrepo MD Unavailable Jose Do MD Unavailable Reason for Visit * Reason Comments Medication Refill Encounter Details Date Type Department Care Team (Late st Contact Info) Description 12/19/2021 Refill [facility] Medical Group - Family Medicine [facility] #2 [place] [address] Keith Craft MD #1 [place] [address] Medication Refill Social History Tobacco Use Types [...] Tesfaye 09/08/21 Office Visit Brie Denis, [facility] [place] 08/14/21 Office Visit Keith Craft MD [facility] 07/31/21 Office Visit Keith Craft MD [facility] [place] 05/25/21 Office Visit Marcin Anderson APRN, ASSOCIATE DEAN [facility] [place] 05/05/21 Office Visit Brie Denis, PAC [facility] [place] 04/14/21 Office Visit Keith Craft MD [facility] [...] 05/25/21 Office Visit Marcin Anderson APRN, JAKOB [facility] [place] 05/05/21 Office Visit Brie Denis, PAC [facility] [...] meeting all other requirements ergocalciferol (VITAMIN D) 88485 UNIT Capsule [Pharmacy Med Name: VITAMIN D [id number] CAPSULE] 12 Capsule 0 Sig: TAKE ONE [...] MD [facility] Tesfaye 10/05/21 Office Visit Keith Craft, [facility] [place] 09/08/21 Office Visit [facility]rie Denis, [facility] [place] 08/14/21 Office Visit Keith Craft MD [facility] [place] 07/31/21 Office Visit [facility] 05/25/21 Office Visit Marcin Anderson APRN, ASSOCIATE DEAN [facility] [place] 05/05/21 Office Visit Brie Denis, PAC [facility] [place] 04/14/21 Office Visit Keith Craft MD [facility] [place] 03/23/21 Office Visit Keith Craft, [facility] Showing recent visits within past 365 days and meeting all other requirements Future Appointments Date Type Provider Dept 03/09/22 Appointment Keith Craft MD [facility] [place] Showing future appointments within next 90 [...] [place] 10/05/21 Office Visit Keith Craft MD [facility] [place] 09/08/21 Office Visit Brie Denis, PAC [facility] [place] 08/14/21 Office Visit Keith Craft, [facility] [place] 07/31/21 Office Visit Keith Craft MD [facility] [place] 05/25/21 Office Visit Marcin Anderson APRN, ASSOCIATE DEAN [facility] [place] 05/05/21 Office Visit Brie Denis, PAC [facility] [place] 04/14/21 Office Visit Keith Craft MD [facility] [place] 03/23/21 [facility], [facility] Show[facility] recent visits within past 365 days and meeting all other requirements Future Appointments Date Type Provider Dept 03/09/22 Appointment Keith Craft, [facility] Showing future appointments within next 90 days and meeting all other requirements documented in this encounter Plan of Treatment Upcoming Encounters Date Type Department Care Team (Late st Contact Info) Description 12/04/2024 12:45 PM CDT Office Visit [facility] - Family Medicine - [place] #2 [place] [address] Ana Vivar, REBECCA, ASSOCIATE DEAN 2 [facility] [address] [place] [address] 12/09/2024 11:15 AM CDT Office Visit [facility] Medical [facility] - General Surgery - [place] #2 [facility] [address] [place] [address] Jose Do MD #2 [facility] [address] [place] [address] 01/04/2025 1:30 PM CDT Office Visit [facility] Medical [facility] - Pulmonology & Sleep Medicine - [place] #2 [place] [address] Werner Swift MD #2 [place] [address] 03/01/2025 1:30 PM CDT Office Visit [facility] - Endocrinology - [place] #2 [place] [address] Yasmin Restrepo MD #[address] [address] 05/13/2025 1:20 PM TRUER PINION AND WHEEL Office Visit [facility] Family Medicine [facility] #2 [place] [address] Liz Capellan, DO 2 [facility] [address] [place] [address] documented as of this encounter Goals Goal [...] plan education. 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 [employer] Course if my symptoms fall in the y [...] 19 04/20/2022 04/20/2022 04/30/2022 12:1 8 AM TRUER PINION AND WHEEL COVID - 19 07/18/2022 07/18/2022 07/28/2022 12:1 6 AM TRUER PINION AND WHEEL COVID - 19 08/21/2022 08/21/2022 08/22/2022 8:31 AM CDT Respiratory Rule Out - RPA 08/21/2022 08/21/2022 0 08/22/2022 3:21 PM CDT COVID - 19 04/18/2023 04/18/2023 04/28/2023 12:1 6 AM TRUER PINION AND WHEEL COVID - 19 07/13/2023 07/13/2023 07/23/2023 12:1 6 AM TRUER PINION AND WHEEL Respiratory Rule Out - RPA 03/17/2024 03/17/2024 1 3:36 PM CDT COVID - 19 04/27/2024 04/27/2024 04/27/2024 2:19 PM TRUER PINION AND WHEEL Respiratory Rule-Out 07/24/2024 07/24/2024 025 2:29 PM TRUER PINION AND WHEEL COVID - 19 07/24/2024 07/24/2024 07/24/2024 2:29 PM TRUER PINION AND WHEEL COVID - 19 08/22/2024 08/22/2024 08/22/2024 11:4 6 PM CDT COVID - 19 09/03/2024 09/03/2024 09/03/2024 12:4 7 PM CDT Assessment Noted Time PHQ-9 Depression Total Score: 1 03/07/20 21 10:29 AM CDT documented as of this encounter Care Teams Key Account Director Relationship Specialty Start Date End Date Keith Craft MD PCP - General Family Medicine 01/14/19 12/26/23 Liz Capellan DO 2 [facility] [address] [place] [address] PCP - General Family Medicine 12/27/23 Quang Locke DO Gastroenterology 01/18/16 Bri Rollins, RN [place] [employer] 03/07/21 05/22/23 [place] [id number] [address] 05/25/21 Bri Rollins, RN [place] Nurse [employer] 03/07/21 05/23/23 Werner Swift MD #2 [facility] [place] [address] Consulting Physician Pulmonary Disease 01/30/22 Yasmin Restrepo MD #[address] [phone] Consulting Physician Endocrinology 07/20/24 Jose Do MD #[address] [address] Consulting Physician Colon and Rectal Surgery 10/12/24 documented as of this encounter
--- OUTSIDE RECORDS SUMMARY | 2024-12-02 13:24 | XMS_ITS | Encounter Summary ---
Author Organization [facility] Address [address] [place] [address] Phone Care Team Providers Care Rhinologist Name Role Phone Quang Locke Unavailable [phone] Keith Craft MD Primary Care Provider [phone] Bri Rollins RN Unavailable Unavailable Silvio Schulte MD Unavailable [phone] Bri Rollins RN Unavailable Unavailable Werner Swift MD Unavailable Liz Capellan DO Primary Care Provider [phone] Yasmin Restrepo MD Unavailable Jose Do MD Unavailable Reason for Visit * Reason Comments Medication Refill Encounter Details Date Type Department Care Team (Late st Contact Info) Description 01/18/2022 Refill [facility] Medical Group - Family Medicine [facility] #2 [place] [address] Keith Craft MD #1 [place] [address] Medication Refill Social History Tobacco Use Types [...] Description 12/04/2024 12:45 PM CDT Office Visit [facility] Family [facility] [place] #2 [facility] [place] [address] Ana Vivar N, NURSE PRACTITIONER PER DIEM, AIR VALVE REPAIRER 2 [facility]. [address] [place] [address] 12/09/2024 11:15 AM CDT Office Visit [facility] General Surgery - [place] #2 [facility] [address] [place] [address] Jose Do MD #[address] [place] [address] 01/04/2025 1:30 PM CDT Office Visit [facility] - Pulmonology & Sleep Medicine - [place] #2 [facility] [place] [address] Werner Swift MD #2 [place] [address] 03/01/2025 1:30 PM CDT Office Visit [facility] - Endocrinology - [place] #2 [facility] [place] [address] Yasmin Restrepo MD #2 [facility] [address] [place] [address] 05/13/2025 1:20 PM HEAD SUGAR REPROCESS OPERATOR Office Visit [facility] Family [facility] [place] #2 [place] [place] [address] Liz Capellan, DO 2 [facility]. [address] [place] [address] documented as of this encounter Goals Goal [...] plan education. I will notify my Heel Cover Softener if my symptoms fall in the y [...] 19 04/20/2022 04/20/2022 04/30/2022 12:1 8 AM HEAD SUGAR REPROCESS OPERATOR COVID - 19 07/18/2022 07/18/2022 07/28/2022 12:1 6 AM HEAD SUGAR REPROCESS OPERATOR COVID - 19 08/21/2022 08/21/2022 08/22/2022 8:31 AM CDT Respiratory Rule Out - RPA 08/21/2022 08/21/2022 0 08/22/2022 3:21 PM CDT COVID - 19 04/18/2023 04/18/2023 04/28/2023 12:1 6 AM HEAD SUGAR REPROCESS OPERATOR COVID - 19 07/13/2023 07/13/2023 07/23/2023 12:1 6 AM HEAD SUGAR REPROCESS OPERATOR Respiratory Rule Out - RPA 03/17/2024 03/17/2024 1 3:36 PM CDT COVID - 19 04/27/2024 04/27/2024 04/27/2024 2:19 PM HEAD SUGAR REPROCESS OPERATOR Respiratory Rule-Out 07/24/2024 07/24/2024 025 2:29 PM HEAD SUGAR REPROCESS OPERATOR COVID - 19 07/24/2024 07/24/2024 07/24/2024 2:29 PM HEAD SUGAR REPROCESS OPERATOR COVID - 19 08/22/2024 08/22/2024 08/22/2024 11:4 6 PM CDT COVID - 19 09/03/2024 09/03/2024 09/03/2024 12:4 7 PM CDT Assessment Noted Time PHQ-9 Depression Total Score: 1 03/07/20 21 10:29 AM CDT documented as of this encounter Care Teams Rhinologist Relationship Specialty Start Date End Date Keith Craft MD PCP - General Family Medicine 01/14/19 12/26/23 Liz Capellan DO [address] [address] PCP - General Family Medicine 12/27/23 Quang Locke DO Gastroenterology 01/18/16 Bri Rollins RN [place] Heel Cover Softener 03/07/21 05/22/23 [place] [address] [address] 05/25/21 Bri Rollins, RN [place] Nurse Heel Cover Softener 03/07/21 05/23/23 Werner Swift MD #2 [place] [address] Consulting Physician Pulmonary Disease 01/30/22 Yasmin Restrepo MD #[address] [address] Consulting Physician Endocrinology 07/20/24 Jose Do MD #[address] [address] Consulting Physician Colon and Rectal Surgery 10/12/24 documented as of this encounter
--- OUTSIDE RECORDS SUMMARY | 2024-12-02 13:24 | XMS_ITS | Encounter Summary ---
Author Organization [facility] Address [address] [place] [address] Phone Care Team Providers Care Picker And Packer Name Role Phone Quang Locke Unavailable [phone] Keith Craft MD Primary Care Provider [phone] Bri Rollins RN Unavailable Unavailable Silvio Schulte MD Unavailable [phone] Bri Rollins RN Unavailable Unavailable Werner Swift MD Unavailable Liz Capellan DO Primary Care Provider [phone] Yasmin Restrepo MD Unavailable Jose Do MD Unavailable Reason for Visit * Reason Comments Medication Refill Encounter Details Date Type Department Care Team (Late st Contact Info) Description 02/08/2021 Refill [facility] #2 [place] [address] Keith Craft MD #1 [place] [address] Medication Refill Social History Tobacco Use Types [...] Mehta RN - 02/09/2021 11:43 AM CDT [place] PDMP last fill date 01/04/21 Medication failed [...] 12/04/2024 12:45 PM CDT Office Visit [facility] Medical Group - Family Medicine - [place] #2 [place] [address] Ana Vivar, UX INFORMATION ARCHITECT, REVENUE SPECIALIST 2 [facility] [place]. [address] [place] [address] 12/09/2024 11:15 AM CDT Office Visit [facility] Medical Group - General Surgery - [place] #2 [facility] [address] [place] [address] Jose Do MD #2 [facility] [address] [place] [address] 01/04/2025 1:30 PM CDT Office Visit [facility] Medical [facility] - Pulmonology & Sleep Medicine - [place] #2 [place] [address] Werner Swift MD #2 [place] [address] 03/01/2025 1:30 PM CDT Office Visit [facility] Medical [facility] - Endocrinology - [place] #2 [facility] [address] Yasmin Restrepo MD #[address] [address] 05/13/2025 1:20 PM DERMATOLOGY PHYSICIAN Office Visit [facility] - Family Medicine - [place] #2 [place] [address] Liz Capellan, DO [address] [address] documented as of this encounter Visit Diagnoses Diagnosis Anxiety and depression Dysthymic disorder documented in this encounter Additional Health Concerns Infection Onset Date Last Indicated Resolved Time COVID - 19 07/23/2021 07/23/2021 07/24/2021 6:31 AM DERMATOLOGY PHYSICIAN COVID - 19 10/19/2021 10/19/2021 10/20/2021 7:45 AM CDT Respiratory Rule Out - RPA 10/19/2021 10/19/2021 0 10/20/2021 2:10 PM CDT Stenotrophomonas maltophilia Comment:Must have a follow up respiratory sample to remove isolation/infection flag. 10/20/2021 10/20/2021 COVID - 19 04/20/2022 04/20/2022 04/30/2022 12:1 8 AM DERMATOLOGY PHYSICIAN COVID - 19 07/18/2022 07/18/2022 07/28/2022 12:1 6 AM DERMATOLOGY PHYSICIAN COVID - 19 08/21/2022 08/21/2022 08/22/2022 8:31 AM CDT Respiratory Rule Out - RPA 08/21/2022 08/21/2022 0 08/22/2022 3:21 PM CDT COVID - 19 04/18/2023 04/18/2023 04/28/2023 12:1 6 AM DERMATOLOGY PHYSICIAN COVID - 19 07/13/2023 07/13/2023 07/23/2023 12:1 6 AM DERMATOLOGY PHYSICIAN Respiratory Rule Out - RPA 03/17/2024 03/17/2024 1 3:36 PM CDT COVID - 19 04/27/2024 04/27/2024 04/27/2024 2:19 PM DERMATOLOGY PHYSICIAN Respiratory Rule-Out 07/24/2024 07/24/2024 025 2:29 PM DERMATOLOGY PHYSICIAN COVID - 19 07/24/2024 07/24/2024 07/24/2024 2:29 PM DERMATOLOGY PHYSICIAN COVID - 19 08/22/2024 08/22/2024 08/22/2024 11:4 6 PM CDT COVID - 19 09/03/2024 09/03/2024 09/03/2024 12:4 7 PM CDT Assessment Noted Time PHQ-9 Depression Total Score: 0 02/04/20 21 11:12 AM CDT documented as of this encounter Care Teams Picker And Packer Relationship Specialty Start Date End Date Keith Craft MD PCP - General Family Medicine 01/14/19 12/26/23 Liz Capellan DO [address] [address] PCP - General Family Medicine 12/27/23 Quang Locke DO Gastroenterology 01/18/16 Bri Rollins, RN [place] Mail Carriers Supervisor 03/07/21 05/22/23 [place] [address] [address] 05/25/21 Bri Rollins RN [place] Nurse Mail Carriers Supervisor 03/07/21 05/23/23 Werner Swift MD #2 [place] [address] Consulting Physician Pulmonary Disease 01/30/22 Yasmin Restrepo MD #[address] [address] Consulting Physician Endocrinology 07/20/24 Jose Do MD #[address] [address] Consulting Physician Colon and Rectal Surgery 10/12/24 documented as of this encounter
--- OUTSIDE RECORDS SUMMARY | 2024-12-02 13:24 | XMS_ITS | Encounter Summary ---
Author Organization [facility] Address [address] [place] [address] Phone Care Team Providers Care Sports Management Professor Name Role Phone Quang Locke Unavailable [phone] Keith Craft MD Primary Care Provider [phone] Bri Rollins RN Unavailable Unavailable Silvio Schulte MD Unavailable [phone] Bri Rollins RN Unavailable Unavailable Werner Swift MD Unavailable Liz Capellan DO Primary Care Provider [phone] Yasmin Restrepo MD Unavailable Jose Do MD Unavailable Reason for Visit * Reason Comments Medication Refill Encounter Details Date Type Department Care Team (Late st Contact Info) Description 01/01/2022 Refill [facility] Medical Group - Family Medicine [facility] #2 [place] [address] Keith Craft MD #1 [place] [address] Medication Refill Social History Tobacco Use Types [...] [place] Tesfaye 05/25/21 Office Visit Marcin Anderson, WELDING ROBOT OPERATOR, AUTOMATIC SHIRRING MACHINE OPERATOR [facility] [place] 05/05/21 Office Visit Brie Denis, PAC [facility] [place] 04/14/21 Office Visit [facility] 03/23/21 Office Visit Keith Craft MD [facility] Showing recent visits within past 365 days and meeting all other requirements Future Appointments Date Type Provider Dept 03/09/22 Appointment Keith Craft MD [facility] Showing future appointments within next 90 days and meeting all other requirements documented in this encounter Plan of Treatment Upcoming Encounters Date Type Department Care Team (Late st Contact Info) Description 12/04/2024 12:45 PM CDT Office Visit [facility] Medical [facility] - Family Medicine - [place] #2 [place] [address] Ana Vivar, WELDING ROBOT OPERATOR, AUTOMATIC SHIRRING MACHINE OPERATOR [address] [address] 12/09/2024 11:15 AM CDT Office Visit [facility] Medical [facility] - General Surgery - [place] #[address] [place] [address] Jose Do MD #[address] [place] [address] 01/04/2025 1:30 PM CDT Office Visit [facility] Medical Group - Pulmonology & Sleep Medicine - [place] #[address] [place] [address] Werner Swift MD #2 [facility] [place] [address] 03/01/2025 1:30 PM CDT Office Visit [facility] Medical [facility] - Endocrinology - [place] #[address] [place] [address] Yasmin Restrepo MD #[address] [place] [address] 05/13/2025 1:20 PM FINANCIAL AID DIRECTOR Office Visit [facility] Medical Group - Family [facility] [place] #[address] [place] [address] Liz Capellan, DO 2 [facility] [address], [place]. [address] [place] [address] documented as of this encounter Goals Goal [...] Zones/Action plan education. I will notify my Vp & General Counsel if my symptoms fall in the y [...] flag. 10/20/2021 10/20/2021 COVID - 19 04/20/2022 04/20/202204/3004/30/2022 12:1 8 AM FINANCIAL AID DIRECTOR COVID - 19 07/18/2022 07/18/2022 07/28/2022 12:1 6 AM FINANCIAL AID DIRECTOR COVID - 19 08/21/2022 08/21/2022 08/22/2022 8:31 AM CDT Respiratory Rule Out - RPA 08/21/2022 08/21/2022 0 08/22/2022 3:21 PM CDT COVID - 19 04/18/2023 04/18/2023 04/28/2023 12:1 6 AM FINANCIAL AID DIRECTOR COVID - 19 07/13/2023 07/13/2023 07/23/2023 12:1 6 AM FINANCIAL AID DIRECTOR Respiratory Rule Out - RPA 03/17/2024 03/17/2024 1 3:36 PM CDT COVID - 19 04/27/2024 04/27/2024 04/27/2024 2:19 PM FINANCIAL AID DIRECTOR Respiratory Rule-Out 07/24/2024 07/24/2024 025 2:29 PM FINANCIAL AID DIRECTOR COVID - 19 07/24/2024 07/24/2024 07/24/2024 2:29 PM FINANCIAL AID DIRECTOR COVID - 19 08/22/2024 08/22/2024 08/22/2024 11:4 6 PM CDT COVID - 19 09/03/2024 09/03/2024 09/03/2024 12:4 7 PM CDT Assessment Noted Time PHQ-9 Depression Total Score: 1 03/07/20 21 10:29 AM CDT documented as of this encounter Care Teams Sports Management Professor Relationship Specialty Start Date End Date Keith Craft MD PCP - General Family Medicine 01/14/19 12/26/23 Liz Capellan DO 2 [facility] [address] [address] PCP - General Family Medicine 12/27/23 Quang Locke DO Gastroenterology 01/18/16 Bri Rollins, RN [place] Vp & General Counsel 03/07/21 05/22/23 [place] [address] [address] 05/25/21 Bri Rollins RN MD Nurse Vp & General Counsel 03/07/21 05/23/23 Werner Swift MD #2 [place] [address] Consulting Physician Pulmonary Disease 01/30/22 Yasmin Restrepo MD #[address] [address] Consulting Physician Endocrinology 07/20/24 Jose Do MD #[address] [address] Consulting Physician Colon and Rectal Surgery 10/12/24 documented as of this encounter
--- OUTSIDE RECORDS SUMMARY | 2024-12-02 13:24 | XMS_ITS | Encounter Summary ---
Author Organization [facility] Address [address] [place] [address] Phone Care Team Providers Care Vegetable Farmworker Name Role Phone Quang Locke Unavailable [phone] Keith Craft MD Primary Care Provider [phone] Bri Rollins RN Unavailable Unavailable Silvio Schulte MD Unavailable [phone] Bri Rollins RN Unavailable Unavailable Werner Swift MD Unavailable Liz Capellan DO Primary Care Provider [phone] Yasmin Restrepo MD Unavailable Jose Do MD Unavailable Reason for Visit * Reason Comments Medication Refill Encounter Details Date Type Department Care Team (Late st Contact Info) Description 08/24/2020 Refill [facility] #2 [place] [address] Keith Craft MD #1 [place] [address] Medication Refill Social History Tobacco Use Types [...] COVID-19? No / Unsure 07/30/2020 3:25 PM STUNNER documented as of this encounter Miscellaneous Notes [...] Outpatient Visits 2 months ago Mixed hyperlipidemia [facility] Keith Lemus MD 4 months ago Pneumonia of right upper lobe due to infectious organism [facility] Keith Lemus MD 6 months ago Acute non-recurrent maxillary sinusitis [facility] Keith Lemus MD 9 months ago Chronic prescription opiate use [facility] Keith Lemus MD 1 year ago Coronary artery disease involving [place] coronary artery of [place] heart without angina pectoris [facility] Keith Lemus MD Upcoming Appointments Future Appointments In 1 month Keith Craft MD [facility] - [place], [facility] TRANSPLANT NURSE - Recent and Past Visits Recent Visits Date Type Provider Dept 06/07/20 Office Visit Keith Craft MD [facility] 04/25/20 Office Visit Keith Craft MD [facility] 02/02/20 Office Visit Keith Craft MD [facility] 11/02/19 Office Visit Keith Craft MD [facility] 07/27/19 Office Visit Keith Craft MD [facility] 06/10/19 Office Visit Brie Denis PAC [facility] Brien [...] Description 12/04/2024 12:45 PM CDT Office Visit [facility] - [place] #2 [facility] [place] [address] Ana Vivar, FRENCH TEACHER, CHEMOTHERAPIST 2 [facility]. [address] [place] [address] 12/09/2024 11:15 AM CDT Office Visit [facility] General Surgery - [place] #2 [facility] [address] [place] [address] Jose Do MD #2 [facility] [address] [place] [address] 01/04/2025 1:30 PM CDT Office Visit [facility] - Pulmonology & Sleep Medicine - [place] #2 [place] [address] Werner Swift MD #2 [place] [address] 03/01/2025 1:30 PM CDT Office Visit [facility] - Endocrinology - [place] #2 [place] [address] Yasmin Restrepo MD #[address] [place] [address] 05/13/2025 1:20 PM STUNNER Office Visit [facility] - Family Medicine - [place] #2 [place] [address] Liz Capellan, DO [address] [address] documented as of this encounter Visit Diagnoses Not on filedocumented in this encounter Additional Health Concerns Infection Onset Date Last Indicated Resolved Time COVID - 19 01/25/2021 01/25/2021 01/31/2021 8:10 AM CDT Respiratory Rule Out - RPA 01/30/2021 01/30/2021 0 02/01/2021 12:45 AM CDT COVID - 19 07/23/2021 07/23/2021 07/24/2021 6:31 AM STUNNER COVID - 19 10/19/2021 10/19/2021 10/20/2021 7:45 AM CDT Respiratory Rule Out - RPA 10/19/2021 10/19/2021 0 10/20/2021 2:10 PM CDT Stenotrophomonas maltophilia Comment:Must have a follow up respiratory sample to remove isolation/infection flag. 10/20/2021 10/20/2021 COVID - 19 04/20/2022 04/20/2022 04/30/2022 12:1 8 AM STUNNER COVID - 19 07/18/2022 07/18/2022 07/28/2022 12:1 6 AM STUNNER COVID - 19 08/21/2022 08/21/2022 08/22/2022 8:31 AM CDT Respiratory Rule Out - RPA 08/21/2022 08/21/2022 0 08/22/2022 3:21 PM CDT COVID - 19 04/18/2023 04/18/2023 04/28/2023 12:1 6 AM STUNNER COVID - 19 07/13/2023 07/13/2023 07/23/2023 12:1 6 AM STUNNER Respiratory Rule Out - RPA 03/17/2024 03/17/2024 1 3:36 PM CDT COVID - 19 04/27/2024 04/27/2024 04/27/2024 2:19 PM STUNNER Respiratory Rule-Out 07/24/2024 07/24/2024 025 2:29 PM STUNNER COVID - 19 07/24/2024 07/24/2024 07/24/2024 2:29 PM STUNNER COVID - 19 08/22/2024 08/22/2024 08/22/2024 11:4 6 PM CDT COVID - 19 09/03/2024 09/03/2024 09/03/2024 12:4 7 PM CDT Assessment Noted Time PHQ-9 Depression Total Score: 2 06/07/19 21 2:34 PM STUNNER documented as of this encounter Care Teams Vegetable Farmworker Relationship Specialty Start Date End Date Keith Craft MD PCP - General Family Medicine 01/14/19 12/26/23 Liz Capellan DO [address] [address] PCP - General Family Medicine 12/27/23 Quang Locke DO Gastroenterology 01/18/16 Bri Rollins RN [place] Linoleum Layer 03/07/21 05/22/23 [place] [id number] [address] 05/25/21 Bri Rollins RN [place] Nurse Linoleum Layer 03/07/21 05/23/23 Werner Swift MD #2 [place] [address] Consulting Physician Pulmonary Disease 01/30/22 Yasmin Restrepo MD #[address] [address] Consulting Physician Endocrinology 07/20/24 Jose Do MD #[address] [id number] Consulting Physician Colon and Rectal Surgery 10/12/24 documented as of this encounter
--- OUTSIDE RECORDS SUMMARY | 2024-12-02 13:24 | XMS_ITS | Encounter Summary ---
Author Organization [facility] Address [address] [place] [address] Phone Care Team Providers Care Buggy Ladle Tender Name Role Phone Quang Locke Unavailable [phone] Keith Craft MD Primary Care Provider [phone] Bri Rollins RN Unavailable Unavailable Silvio Schulte MD Unavailable [phone] Bri Rollins RN Unavailable Unavailable Werner Swift MD Unavailable Liz Capellan DO Primary Care Provider [phone] Yasmin Restrepo MD Unavailable Jose Do MD Unavailable Reason for Visit * Reason Comments Medication Refill Encounter Details Date Type Department Care Team (Late st Contact Info) Description 09/22/2020 Refill [facility] Medical Group - Family Medicine [facility] #2 [place] [address] Keith Craft MD #1 [place] [address] Medication Refill Social History Tobacco Use Types [...] CDT Office Visit [facility] Medical Group - Family Medicine - [place] #2 [place] [address] Ana Vivar, FILTER TENDER, NURSING EDUCATOR 2 [facility]. [address] [place] [address] 12/09/2024 11:15 AM CDT Office Visit [facility] - General Surgery - [place] #[address] [address] Jose Do MD #[address] [address] 01/04/2025 1:30 PM CDT [facility] - [place] #2 [place] [address] Werner Swift MD #2 [place] [address] 03/01/2025 1:30 PM CDT Office Visit [facility] - Endocrinology - [place] #2 [place] [address] Yasmin Restrepo MD #[address] [address] 05/13/2025 1:20 PM POLICE PATROL LIEUTENANT Office Visit [facility] - Family Medicine - [place] #2 [place] [address] Liz Capellan, DO [address] [address] documented as of this encounter Visit Diagnoses Diagnosis Anxiety and depression Dysthymic disorder documented in this encounter Additional Health Concerns Infection Onset Date Last Indicated Resolved Time COVID - 19 01/25/2021 01/25/2021 01/31/2021 8:10 AM CDT Respiratory Rule Out - RPA 01/30/2021 01/30/2021 0 02/01/2021 12:45 AM CDT COVID - 19 07/23/2021 07/23/2021 07/24/2021 6:31 AM POLICE PATROL LIEUTENANT COVID - 19 10/19/2021 10/19/2021 10/20/2021 7:45 AM CDT Respiratory Rule Out - RPA 10/19/2021 10/19/2021 0 10/20/2021 2:10 PM CDT Stenotrophomonas maltophilia Comment:Must have a follow up respiratory sample to remove isolation/infection flag. 10/20/2021 10/20/2021 COVID - 19 04/20/2022 04/20/2022 04/30/2022 12:1 8 AM POLICE PATROL LIEUTENANT COVID - 19 07/18/2022 07/18/2022 07/28/2022 12:1 6 AM POLICE PATROL LIEUTENANT COVID - 19 08/21/2022 08/21/2022 08/22/2022 8:31 AM CDT Respiratory Rule Out - RPA 08/21/2022 08/21/2022 0 08/22/2022 3:21 PM CDT COVID - 19 04/18/2023 04/18/2023 04/28/2023 12:1 6 AM POLICE PATROL LIEUTENANT COVID - 19 07/13/2023 07/13/2023 07/23/2023 12:1 6 AM POLICE PATROL LIEUTENANT Respiratory Rule Out - RPA 03/17/2024 03/17/2024 1 3:36 PM CDT COVID - 19 04/27/2024 04/27/2024 04/27/2024 2:19 PM POLICE PATROL LIEUTENANT Respiratory Rule-Out 07/24/2024 07/24/2024 025 2:29 PM POLICE PATROL LIEUTENANT COVID - 19 07/24/2024 07/24/2024 07/24/2024 2:29 PM POLICE PATROL LIEUTENANT COVID - 19 08/22/2024 08/22/2024 08/22/2024 11:4 6 PM CDT COVID - 19 09/03/2024 09/03/2024 09/03/2024 12:4 7 PM CDT Assessment Noted Time PHQ-9 Depression Total Score: 2 06/07/19 2:34 PM POLICE PATROL LIEUTENANT documented as of this encounter Care Teams Buggy Ladle Tender Relationship Specialty Start Date End Date Keith Craft MD PCP - General Family Medicine 01/14/19 12/26/23 Liz Capellan DO [address] [address] PCP - General Family Medicine 12/27/23 Quang Locke DO Gastroenterology 01/18/16 Bri Rollins RN [place] Finished Stock Inspector 03/07/21 05/22/23 [place] [id number] [address] 05/25/21 Bri Rollins RN [place] Nurse Finished Stock Inspector 03/07/21 05/23/23 Werner [place] MD #2 [place] [address] Consulting Physician Pulmonary Disease 01/30/22 Yasmin Restrepo MD #2 [facility] [address] [place] [address] Consulting Physician Endocrinology 07/20/24 Jose Do MD #2 [facility] [address] [place] [address] Consulting Physician Colon and Rectal Surgery 10/12/24 documented as of this encounter
--- OUTSIDE RECORDS SUMMARY | 2024-12-02 13:24 | XMS_ITS | Encounter Summary ---
Author Organization [facility] Address [address] [place] [address] Phone Care Team Providers Care Office Clinician Name Role Phone Quang Locke DO Unavailable [phone] Keith Craft MD Primary Care Provider [phone] Silvio Schulte MD Unavailable [phone] Werner Swift MD Unavailable Liz Capellan DO Primary Care Provider [phone] Yasmin Restrepo MD Unavailable Jose Do MD Unavailable Reason for Visit * Reason Comments Medication Refill Encounter Details Date Type Department Care Team (Late st Contact Info) Description 07/10/2023 Refill [facility] - Family Medicine [facility] #2 [place] [address] Keith Craft MD #1 [place] [address] Medication Refill Social History Tobacco Use Types Packs/Day Years Used Date Smoking Tobacco: Former Cigarettes 2 50 1 - 03/16/2018 Smokeless Tobacco: Never Comments:Still uses nictoine patches and gum Alcohol Use Standard Drinks/Week Comments No 0 (1 standard drink = 0.6 oz pur e alcohol) [facility] Utilities Answer Date Recorded In [...] often do you attend chur ch or advent services? Never 07/13/2023 Do you belong to [...] Score - Questions 1-9 0 08/2021 [facility] of Occupat ional Health - Occupational Stress [...] as of this encounter Functional Status * AUDIT-C Score Answer Date of Assessment Author 0 07/13/2023 5:05 PM Mariel Strickland RN * Question Answer Date of Assessment Author Q1: How often do you have a drink containing alcohol? Never 07/13/2023 5:05 PM Yonathan Strickland , RN Q2: How many drinks containing alcohol do you have on a typical day when you are drinking? Patient does not drink 07/13/2023 5:05 PM Yonathan Strickland, RN Q3: How often do you have six or more drinks on one occasion? Never 07/13/2023 5:05 PM DISTRICT CAPTAIN Yonathan Diaz RN documented as of this encounter Miscellaneous Notes * Telephone Encounter - Kelin Nance RN - 07/10/2023 2:40 PM DISTRICT CAPTAIN Corrected - PDMP 05-04-23 RICT CAPTAIN * Telephone Encounter - Kelin Nance RN - 07/10/2023 2:39 PM DISTRICT CAPTAIN PDMP 05-04-24, 30 days Will need UDS [...] [facility] 07/18/22 Office Visit Kerri Kauffman, PODIATRIC ASSISTANT, SPACE OFFICER Os[facility] Tesfaye Showing recent visits within past 365 days and meeting all other requirements Future Appointments Date Type Provider Dept 08/15/23 Appointment Keith Craft MD [facility] Showing future appointments within next 90 days and meeting all other requirements RICT CAPTAIN documented in this encounter Plan of Treatment Upcoming Encounters Date Type Department Care Team (Late st Contact Info) Description 12/04/2024 12:45 PM CDT Office Visit [facility] Family Medicine - [place] #2 [facility] [place] [address] Ana Vivar, PODIATRIC ASSISTANT, SPACE OFFICER 2 [facility] [address] [place] [address] 12/09/2024 11:15 AM CDT [facility] - [place] #2 [facility] [address] [place] [address] Jose Do MD #[address] [place] [address] 01/04/2025 1:30 PM CDT Office Visit [facility] - Pulmonology & Sleep Medicine - [place] #2 [place] [address] Werner Swift MD #2 [place] [address] 03/01/2025 1:30 PM CDT Office Visit [facility] Endocrinology - [place] #2 [facility] [place] [address] Yasmin Restrepo MD #[address] [address] 05/13/2025 1:20 PM DISTRICT CAPTAIN Office Visit [facility] Family [facility] - [place] #2 [facility] [place] [address] Liz Capellan, DO 2 [facility] [address] [place] [address] documented as of this encounter Goals Goal [...] plan education. I will notify my Machine Maintenance Servicer if my symptoms fall in the y [...] 07/13/2023 07/13/2023 07/23/2023 12:1 6 AM DISTRICT CAPTAIN Respiratory Rule Out - RPA 03/17/2024 03/17/2024 1 3:36 PM CDT COVID - 19 04/27/2024 04/27/2024 04/27/2024 2:19 PM DISTRICT CAPTAIN Respiratory Rule-Out 07/24/2024 07/24/2024 025 2:29 PM DISTRICT CAPTAIN COVID - 19 07/24/2024 07/24/2024 07/24/2024 2:29 PM DISTRICT CAPTAIN COVID - 19 08/22/2024 08/22/2024 08/22/2024 11:4 6 PM CDT COVID - 19 09/03/2024 09/03/2024 09/03/2024 12:4 7 PM CDT Assessment Noted Time PHQ-9 Depression Total Score: 1 03/07/20 21 10:29 AM CDT documented as of this encounter Care Teams Office Clinician Relationship Specialty Start Date End Date Keith Craft MD PCP - General Family Medicine 01/14/19 12/26/23 Liz Capellan DO 2 [facility] [address] [place], [place] [id number] PCP - General Family Medicine 12/27/23 Quang Locke DO Gastroenterology 01/18/16 [place] [address] [address] 05/25/21 Werner Swift MD #2 [place] [address] Consulting Physician Pulmonary Disease 01/30/22 Yasmin Restrepo MD #[address] [facility] [address] [place] [address] Consulting Physician Endocrinology 07/20/24 Jose Do MD #[address] [address] Consulting Physician Colon and Rectal Surgery 10/12/24 documented as of this encounter
--- OUTSIDE RECORDS SUMMARY | 2024-12-02 13:24 | XMS_ITS | Encounter Summary ---
Author Organization [facility] Address [address] [place] [address] Phone Care Team Providers Care Physiatrist Name Role Phone Quang Locke Unavailable [phone] Keith Craft MD Primary Care Provider [phone] Bri Rollins RN Unavailable Unavailable Silvio Schulte MD Unavailable [phone] Bri Rollins RN Unavailable Unavailable Werner Swift MD Unavailable Liz Capellan DO Primary Care Provider [phone] Yasmin Restrepo MD Unavailable Jose Do MD Unavailable Reason for Visit * Reason Comments Medication Refill Encounter Details Date Type Department Care Team (Late st Contact Info) Description 11/29/2020 Refill [facility] #2 [place] [address] Keith Craft MD #1 [place] [address] Medication Refill Social History Tobacco Use Types [...] 12:45 PM CDT Office Visit [facility] Medical Group - Family Medicine - [place] #2 [place] [address] Ana Vivar, INSTRUMENT LENS GRINDER, WELDING PRODUCTION SUPERVISOR 2 [facility]. [address] [place] [address] 12/09/2024 11:15 AM CDT Office Visit [facility] Medical Group - General Surgery - [place] #[address] [place] [address] Jose Do MD #[address] [place] [address] 01/04/2025 1:30 PM CDT [facility] - [place] #2 [place] [address] Werner [place] MD #2 [place] [address] 03/01/2025 1:30 PM CDT Office Visit [facility] - Endocrinology - [place] #2 [place] [address] Yasmin Restrepo MD #[address] [address] 05/13/2025 1:20 PM ORACLE PROGRAMMER Office Visit [facility] - Family Medicine - [place] #2 [place] [address] Liz Capellan, DO [address] [address] documented as of this encounter Visit Diagnoses Diagnosis Anxiety and depression Dysthymic disorder documented in this encounter Additional Health Concerns Infection Onset Date Last Indicated Resolved Time COVID - 19 01/25/2021 01/25/2021 01/31/2021 8:10 AM CDT Respiratory Rule Out - RPA 01/30/2021 01/30/2021 0 02/01/2021 12:45 AM CDT COVID - 19 07/23/2021 07/23/2021 07/24/2021 6:31 AM ORACLE PROGRAMMER COVID - 19 10/19/2021 10/19/2021 10/20/2021 7:45 AM CDT Respiratory Rule Out - RPA 10/19/2021 10/19/2021 0 10/20/2021 2:10 PM CDT Stenotrophomonas maltophilia Comment:Must have a follow up respiratory sample to remove isolation/infection flag. 10/20/2021 10/20/2021 COVID - 19 04/20/2022 04/20/2022 04/30/2022 12:1 8 AM ORACLE PROGRAMMER COVID - 19 07/18/2022 07/18/2022 07/28/2022 12:1 6 AM ORACLE PROGRAMMER COVID - 19 08/21/2022 08/21/2022 08/22/2022 8:31 AM CDT Respiratory Rule Out - RPA 08/21/2022 08/21/2022 0 08/22/2022 3:21 PM CDT COVID - 19 04/18/2023 04/18/2023 04/28/2023 12:1 6 AM ORACLE PROGRAMMER COVID - 19 07/13/2023 07/13/2023 07/23/2023 12:1 6 AM ORACLE PROGRAMMER Respiratory Rule Out - RPA 03/17/2024 03/17/2024 1 3:36 PM CDT COVID - 19 04/27/2024 04/27/2024 04/27/2024 2:19 PM ORACLE PROGRAMMER Respiratory Rule-Out 07/24/2024 07/24/2024 025 2:29 PM ORACLE PROGRAMMER COVID - 19 07/24/2024 07/24/2024 07/24/2024 2:29 PM ORACLE PROGRAMMER COVID - 19 08/22/2024 08/22/2024 08/22/2024 11:4 6 PM CDT COVID - 19 09/03/2024 09/03/2024 09/03/2024 12:4 7 PM CDT Assessment Noted Time PHQ-9 Depression Total Score: 2 06/07/19 21 2:34 PM ORACLE PROGRAMMER documented as of this encounter Care Teams Physiatrist Relationship Specialty Start Date End Date Keith Craft MD PCP - General Family Medicine 01/14/19 12/26/23 Liz Capellan DO 2 [facility] [address] [place] [address] PCP - General Family Medicine 12/27/23 Quang Locke DO Gastroenterology 01/18/16 Bri Rollins, KATEY [place] Crm Marketing Specialist 03/07/21 05/22/23 [place] [id number] [address] 05/25/21 Bri Rollins RN [place] Nurse Crm Marketing Specialist 03/07/21 05/23/23 Werner [place] MD #2 [place] [address] Consulting Physician Pulmonary Disease 01/30/22 Yasmin Restrepo MD #[address] [address] Consulting Physician Endocrinology 07/20/24 Jose Do MD #2 [address] [address] Consulting Physician Colon and Rectal Surgery 10/12/24 documented as of this encounter
--- OUTSIDE RECORDS SUMMARY | 2024-12-02 13:25 | XMS_ITS | Encounter Summary ---
Author Organization [facility] Address [address] [place] [address] Phone Care Team Providers Care Supply Chain Tech Name Role Phone Quang Locke Unavailable [phone] Keith Craft MD Primary Care Provider [phone] Bri Rollins RN Unavailable Unavailable Silvio Schulte MD Unavailable [phone] Bri Rollins RN Unavailable Unavailable Werner Swift MD Unavailable Liz Capellan DO Primary Care Provider [phone] Yasmin Restrepo MD Unavailable Jose Do MD Unavailable Reason for Visit * Reason Comments Medication Refill Encounter Details Date Type Department Care Team (Late st Contact Info) Description 05/01/2022 Refill [facility] #2 [place] [address] Keith Craft MD #1 [place] [address] Medication Refill Social History Tobacco Use Types [...] Coronavirus/COVID-19? No / Unsure 05/01/2022 1:41 PM MOLD RUNNER documented as of this encounter Miscellaneous Notes [...] RETINAL IMAGING [facility] [place] 03/02/22 Office Visit Keith Craft MD [facility] [place] [place] 11/03/21 Office Visit Keith Craft MD [facility] [place] [place] 10/19/21 Office Visit Keith Craft MD [facility] [place] 10/05/21 Office Visit Keith Craft MD [facility] [place] [place] 09/08/21 Office Visit Brie Denis, [facility] [place] 08/14/21 Office Visit Keith Craft MD [facility] 07/31/21 Office Visit Keith Craft MD [facility] 05/25/21 Office Visit Marcin Anderson APRN, WIND TUNNEL TECHNICIAN [facility] 05/05/21 Office Visit Brie Denis PAC [facility] Showing recent visits within past 365 days and meeting all other requirements Future Appointments Date Type Provider Dept 06/04/22 Appointment Keith Craft MD [facility] Showing future appointments within next 90 days and meeting all other requirements RUNNER documented in this encounter Plan of Treatment Upcoming Encounters Date Type Department Care Team (Late st Contact Info) Description 12/04/2024 12:45 PM CDT Office Visit [facility] - Family Medicine - [place] #2 [place] [address] Ana Vivar, REBECCA, WIND TUNNEL TECHNICIAN 2 [facility] [address] [place] [address] 12/09/2024 11:15 AM CDT Office Visit [facility] - General Surgery - [place] #[address] [place] [address] Jsoe Do MD #[address] [address] 01/04/2025 1:30 PM CDT Office Visit [facility] Medical [facility] - Pulmonology & Sleep Medicine - [place] #2 [place] [address] Werner Swift MD #2 [place] [address] 03/01/2025 1:30 PM CDT Office Visit [facility] - Endocrinology - [place] #2 [place] [address] Yasmin Restrepo MD #[address] [facility] [address] [place] [address] 05/13/2025 1:20 PM MOLD RUNNER Office Visit [facility] Group [facility] [place] #[address] [place] [address] Liz Capellan, DO [address] [facility] [place] [facility]. [address] [place] [address] documented as of this encounter Goals Goal [...] Zones/Action plan education. I will notify my Employment Law Specialist if my symptoms fall in the [...] 19 07/18/2022 07/18/2022 07/28/2022 12:1 6 AM MOLD RUNNER COVID - 19 08/21/2022 08/21/2022 08/22/2022 8:31 AM CDT Respiratory Rule Out - RPA 08/21/2022 08/21/2022 0 08/22/2022 3:21 PM CDT COVID - 19 04/18/2023 04/18/2023 04/28/2023 12:1 6 AM MOLD RUNNER COVID - 19 07/13/2023 07/13/2023 07/23/2023 12:1 6 AM MOLD RUNNER Respiratory Rule Out - RPA 03/17/2024 03/17/2024 1 3:36 PM CDT COVID - 19 04/27/2024 04/27/2024 04/27/2024 2:19 PM MOLD RUNNER Respiratory Rule-Out 07/24/2024 07/24/2024 025 2:29 PM MOLD RUNNER COVID - 19 07/24/2024 07/24/2024 07/24/2024 2:29 PM MOLD RUNNER COVID - 19 08/22/2024 08/22/2024 08/22/2024 11:4 6 PM CDT COVID - 19 09/03/2024 09/03/2024 09/03/2024 12:4 7 PM CDT Assessment Noted Time PHQ-9 Depression Total Score: 1 03/07/20 21 10:29 AM CDT documented as of this encounter Care Teams Supply Chain Tech Relationship Specialty Start Date End Date Keith Craft MD PCP - General Family Medicine 01/14/19 12/26/23 Liz Capellan DO [address] [address] PCP - General Family Medicine 12/27/23 Quang Locke DO Gastroenterology 01/18/16 Bri Rollins, RN [place] Employment Law Specialist 03/07/21 05/22/23 [place] [id number] [address] 05/25/21 Bri Rollins, KATEY [place] Nurse Employment Law Specialist 03/07/21 05/23/23 Werner Swift MD #2 [place] [address] Consulting Physician Pulmonary Disease 01/30/22 Yasmin Restrepo MD #[address] [address] Consulting Physician Endocrinology 07/20/24 Jose Do MD #[address] [address] Consulting Physician Colon and Rectal Surgery 10/12/24 documented as of this encounter
--- OUTSIDE RECORDS SUMMARY | 2024-12-02 13:25 | XMS_ITS | Encounter Summary ---
Author Organization [facility] Address [address] [place] [address] Phone Care Team Providers Care Upward Bound Director Name Role Phone Quang Locke DO Unavailable [phone] Keith Craft MD Primary Care Provider [phone] Silvio Schulte MD Unavailable [phone] Werner Swift MD Unavailable Liz Capellan DO Primary Care Provider [phone] Yasmin Restrepo MD Unavailable Jose Do MD Unavailable Reason for Visit * Reason Comments Medication Refill Encounter Details Date Type Department Care Team (Late st Contact Info) Description 11/11/2023 Refill [facility] #2 [place] [address] Keith Craft MD #1 [place] [address] Medication Refill Social History Tobacco Use Types Packs/Day Years Used Date Smoking Tobacco: Former Cigarettes 2 50 1 - 03/16/2018 Smokeless Tobacco: Never Comments:Still uses nictoine patches and gum Alcohol Use Standard Drinks/Week Comments No 0 (1 standard drink = 0.6 oz pur e alcohol) [facility] Utilities Answer Date Recorded In [...] any clubs o r organizations such as anglican groups, unions, fraternal or athletic groups, or [...] Total Score - Questions 1-9 4 10/25 [facility] [place] of Occupat ional Health - Occupational Stress [...] Dept 11/08/23 Office Visit Brie Denis PAC [facility] [place] 08/15/23 Office Visit Keith Craft MD [facility] [place] 05/02/23 Office Visit Keith Craft MD [facility] 04/12/23 Office Visit Keith Craft MD [facility] 12/10/22 Office Visit Keith Craft MD [facility] Showing recent visits within past 365 days and meeting all other requirements Future Appointments Date Type Provider Dept 12/27/23 Appointment Liz Capellan, [facility] Showing future appointments within next 90 days and meeting all other requirements documented in this encounter Plan of Treatment Upcoming Encounters Date Type Department Care Team (Late st Contact Info) Description 12/04/2024 12:45 PM CDT Office Visit [facility] - Family Medicine - [place] #2 [place] [address] Ana Vivar, HAMMER OPERATOR, DEHYDRATION UNIT OPERATOR 2 [facility]. [address] [place] [address] 12/09/2024 11:15 AM CDT Office Visit [facility] - General Surgery - [place] #2 [facility] [address] [place] [address] Jose Do MD #2 [facility] [address] [place] [address] 01/04/2025 1:30 PM CDT Office Visit [facility] Medical [facility] - Pulmonology & Sleep Medicine - [place] #2 [place] [address] Werner Swift MD #2 [place] [address] 03/01/2025 1:30 PM CDT Office Visit [facility] - Endocrinology - [place] #2 [place] [address] Yasmin Restrepo MD #2 [facility] [address] [place] [address] 05/13/2025 1:20 PM BATCH UNIT TREATER Office Visit [facility] - Family Medicine - [place] #2 [place] [address] Liz Capellan, DO 2 [facility]. [address] [place] [address] documented as of this encounter Goals Goal [...] Zones/Action plan education. I will notify my Delivery Supervisor if my symptoms fall in the [...] - 19 04/27/2024 04/27/2024 04/27/2024 2:19 PM BATCH UNIT TREATER Respiratory Rule-Out 07/24/2024 07/24/2024 025 2:29 PM BATCH UNIT TREATER COVID - 19 07/24/2024 07/24/2024 07/24/2024 2:29 PM BATCH UNIT TREATER COVID - 19 08/22/2024 08/22/2024 08/22/2024 11:4 6 PM CDT COVID - 19 09/03/2024 09/03/2024 09/03/2024 12:4 7 PM CDT Assessment Noted Time PHQ-9 Depression Total Score: 4 11/07/ 24 9:33 AM CDT documented as of this encounter Care Teams Upward Bound Director Relationship Specialty Start Date End Date Keith Craft MD PCP - General Family Medicine 01/14/19 12/26/23 Liz Capellan DO [address] [address] PCP - General Family Medicine 12/27/23 Quang Locke DO Gastroenterology 01/18/16 [place] [address] [address] 05/25/21 Werner Swift MD #2 [place] [address] Consulting Physician Pulmonary Disease 01/30/22 Yasmin Restrepo MD #[address] [address] Consulting Physician Endocrinology 07/20/24 Jose Do MD #[address] [address] Consulting Physician Colon and Rectal Surgery 10/12/24 documented as of this encounter
--- OUTSIDE RECORDS SUMMARY | 2024-12-02 13:25 | XMS_ITS | Encounter Summary ---
Author Organization [facility] Address [address] [place] [address] Phone Care Team Providers Care Rn Bariatric Name Role Phone Quang Locke Unavailable [phone] Keith Craft MD Primary Care Provider [phone] Bri Rollins RN Unavailable Unavailable Silvio Schulte MD Unavailable [phone] Bri Rollins RN Unavailable Unavailable Werner Swift MD Unavailable Liz Capellan DO Primary Care Provider [phone] Yasmin Restrepo MD Unavailable Jose oD MD Unavailable Reason for Visit * Reason Comments Medication Refill Encounter Details Date Type Department Care Team (Late st Contact Info) Description 02/25/2021 Refill [facility] - [facility] #2 [place] [id number] Brie Denis, PAC #2 [place] [address] Medication Refill Social History Tobacco Use Types [...] [place] 02/03/21 Office Visit Brie Denis, [facility] 01/12/21 Office Visit Keith Craft MD [facility] 10/12/20 Office Visit Keith Craft MD [facility] 10/04/20 Office Visit Keith [facility] MD [facility] [place] Showing recent visits within past 182 days and meeting all other requirements Future Appointments Date Type Provider Dept 04/14/21 Appointment Keith Craft MD [facility] Showing future appointments within next 90 days and meeting all other requirements Passed - Has an encounter in the past 6 months with a depression or anxiety visit diagnosis documented in this encounter Plan of Treatment Upcoming Encounters Date Type Department Care Team (Late st Contact Info) Description 12/04/2024 12:45 PM CDT Office Visit [facility] Medical [facility] - Family Medicine - [place] #[address] [facility] [place] [address] Ana Vivar, SUPERVISOR DITCHING, MANAGER DISTRIBUTION CENTER [address] [place] [address] 12/09/2024 11:15 AM CDT Office Visit [facility] Medical [facility] - General Surgery - [place] #2 [facility] [address] [place] [address] Jose Do MD #[address] [place] [address] 01/04/2025 1:30 PM CDT Office Visit [facility] Medical [facility] - Pulmonology & Sleep Medicine - [place] #2 [facility] [place] [address] Werner Swift MD #2 [facility] [place] [address] 03/01/2025 1:30 PM CDT Office Visit [facility] Medical [facility] - Endocrinology - [place] #2 [facility] [place] [address] Yasmin Restrepo MD #[address] [place] [address] 05/13/2025 1:20 PM RAISIN WASHER Office Visit [facility] - Family [facility] [place] #[address] [place] [address] Liz Capellan, DO 2 [facility] [place] [place]. [address] [place] [address] documented as of this encounter Visit Diagnoses Diagnosis Anxiety Anxiety state, unspecified documented in this encounter Additional Health Concerns Infection Onset Date Last Indicated Resolved Time COVID - 19 07/23/2021 07/23/2021 07/24/2021 6:31 AM RAISIN WASHER COVID - 19 10/19/2021 10/19/2021 10/20/2021 7:45 AM CDT Respiratory Rule Out - RPA 10/19/2021 10/19/2021 0 10/20/2021 2:10 PM CDT Stenotrophomonas maltophilia Comment:Must have a follow up respiratory sample to remove isolation/infection flag. 10/20/2021 10/20/2021 COVID - 19 04/20/2022 04/20/2022 04/30/2022 12:1 8 AM RAISIN WASHER COVID - 19 07/18/2022 07/18/2022 07/28/2022 12:1 6 AM RAISIN WASHER COVID - 19 08/21/2022 08/21/2022 08/22/2022 8:31 AM CDT Respiratory Rule Out - RPA 08/21/2022 08/21/2022 0 08/22/2022 3:21 PM CDT COVID - 19 04/18/2023 04/18/2023 04/28/2023 12:1 6 AM RAISIN WASHER COVID - 19 07/13/2023 07/13/2023 07/23/2023 12:1 6 AM RAISIN WASHER Respiratory Rule Out - RPA 03/17/2024 03/17/2024 1 3:36 PM CDT COVID - 19 04/27/2024 04/27/2024 04/27/2024 2:19 PM RAISIN WASHER Respiratory Rule-Out 07/24/2024 07/24/2024 025 2:29 PM RAISIN WASHER COVID - 19 07/24/2024 07/24/2024 07/24/2024 2:29 PM RAISIN WASHER COVID - 19 08/22/2024 08/22/2024 08/22/2024 11:4 6 PM CDT COVID - 19 09/03/2024 09/03/2024 09/03/2024 12:4 7 PM CDT Assessment Noted Time PHQ-9 Depression Total Score: 0 02/04/20 11:12 AM CDT documented as of this encounter Care Teams Rn Bariatric Relationship Specialty Start Date End Date Keith Craft MD PCP - General Family Medicine 01/14/19 12/26/23 Liz Capellan DO [address] [address] PCP - General Family Medicine 12/27/23 Quagn Locke DO Gastroenterology 01/18/16 Bri Rollins RN [place] Diet Counselor 03/07/21 05/22/23 [place] [address] [address] 05/25/21 Bri Rollins RN [place] Nurse Diet Counselor 03/07/21 05/23/23 Werner Swift MD #2 [place] [address] Consulting Physician Pulmonary Disease 01/30/22 Yasmin Restrepo MD #[address] [address] Consulting Physician Endocrinology 07/20/24 Jose Do MD #2 [place] [address] Consulting Physician Colon and Rectal Surgery 10/12/24 documented as of this encounter
--- OUTSIDE RECORDS SUMMARY | 2024-12-02 13:25 | XMS_ITS | Encounter Summary ---
Author Organization [facility] Address [address] [place] [address] Phone Care Team Providers Care Printed Circuit Boards Beveler Name Role Phone Quang Locke DO Unavailable [phone] Keith Craft MD Primary Care Provider [phone] Silvio Schulte MD Unavailable [phone] Werner wSift MD Unavailable Liz Capellan DO Primary Care Provider [phone] Yasmin Restrepo MD Unavailable Jose Do MD Unavailable Reason for Visit * Reason Comments Medication Refill Encounter Details Date Type Department Care Team (Late st Contact Info) Description 11/06/2023 Refill [facility] Family Medicine [facility] #2 [place] [address] Kieth Craft MD #1 [place] [address] Medication Refill Social History Tobacco Use Types [...] any clubs o r organizations such as christian groups, unions, fraternal or athletic groups, or [...] Total Score - Questions 1-9 4 10/25 [facility] [place] of Occupat ional Health - Occupational [...] Date Type Provider Dept 11/08/23 Appointment Brie Denis PAC [facility] Showing future appointments within next 90 days and meeting all other requirements documented in this encounter Plan of Treatment Upcoming Encounters Date Type Department Care Team (Late st Contact Info) Description 12/04/2024 12:45 PM CDT Office Visit [facility] [place] #2 [place] [address] Ana Vivar, WATER MECHANIC, JAVA DEVELOPER CONSULTANT [address] [address] 12/09/2024 11:15 AM CDT Office Visit [facility] General Surgery - [place] #[address] [place] [address] Jose Do MD #[address] [address] 01/04/2025 1:30 PM CDT Office Visit [facility] - Pulmonology & Sleep Medicine - [place] #2 [place] [address] Werner Swift MD #2 [facility] [place] [address] 03/01/2025 1:30 PM CDT Office Visit [facility] - Endocrinology - [place] #2 [facility] [place] [address] Yasmin Restrepo MD #[address] [place] [address] 05/13/2025 1:20 PM PUBLIC ADDRESS SYSTEM OPERATOR Office Visit [facility] Family [facility] [place] #2 [place] [address] Liz Capellan, DO 2 [facility]. [address] [place] [address] documented as of this encounter Goals Goal [...] Zones/Action plan education. I will notify my Warp Dyeing Tender if my symptoms fall in the [...] 19 04/27/2024 04/27/2024 04/27/2024 2:19 PM PUBLIC ADDRESS SYSTEM OPERATOR Respiratory Rule-Out 07/24/2024 07/24/2024 025 2:29 PM PUBLIC ADDRESS SYSTEM OPERATOR COVID - 19 07/24/2024 07/24/2024 07/24/2024 2:29 PM PUBLIC ADDRESS SYSTEM OPERATOR COVID - 19 08/22/2024 08/22/2024 08/22/2024 11:4 6 PM CDT COVID - 19 09/03/2024 09/03/2024 09/03/2024 12:4 7 PM CDT Assessment Noted Time PHQ-9 Depression Total Score: 1 03/07/20 21 10:29 AM CDT documented as of this encounter Care Teams Printed Circuit Boards Beveler Relationship Specialty Start Date End Date Keith Craft MD PCP - General Family Medicine 01/14/19 12/26/23 Liz Capellan DO [address] [address] PCP - General Family Medicine 12/27/23 Quang Locke DO Gastroenterology 01/18/16 [place] [address] [address] 05/25/21 Werner Swift MD #2 [place] [address] Consulting Physician Pulmonary Disease 01/30/22 Yasmin Restrepo MD #[address] [address] Consulting Physician Endocrinology 07/20/24 Jose Do MD #[address] [address] Consulting Physician Colon and Rectal Surgery 10/12/24 documented as of this encounter
--- OUTSIDE RECORDS SUMMARY | 2024-12-02 13:25 | XMS_ITS | Encounter Summary ---
Author Organization [facility] Address [address] [place] [address] Phone Care Team Providers Care Power Crane Operator Name Role Phone Quang Locke Oswaldo PRESLEY Unavailable [phone] Silvio Schulte MD Unavailable [phone] Werner Swift MD Unavailable Liz Capellan DO Primary Care Provider [phone] Yasmin Restrepo MD Unavailable Jose Do MD Unavailable Reason for Visit * Reason Onset Date Comments Advice Only 07/09/2024 Cough 07/09/2024 Encounter Details Date Type Department Care Team (Late st Contact Info) Description 07/09/2024 Nurse Triage [facility] [address] [place] [address] Liz Capellan DO [address] [address] Advice Only; Cough Social History Tobacco Use Types Packs/Day Years Used Date Smoking Tobacco: Former Cigarettes 2 50 1 - 03/16/2018 Smokeless Tobacco: Never Comments:Still uses nictoine patches and gum Alcohol Use Standard Drinks/Week Comments No 0 (1 standard drink = 0.6 oz pur e alcohol) [facility] Utilities Answer Date Recorded In the [...] declined 04/27/2024 How often do you attend [facility]aritan or [facility] serv ices? Patient declined 04/27/2024 Do you [...] Total Score - Questions 1-9 0 06/27 [facility] of Occupat ional Health - Occupational Stress [...] any time in the past 12 m [facility], were you homeless or living in a [...] Adrianna Solitario RN - 07/09/2024 9:23 AM ASBESTOS SIDING MECHANIC SITUATION: Cough BACKGROUND: Patient contacting PCP office. [...] needing to talk to patient please call [phone] Encounter routed to provider high priority to notify. Please send SwiftStackhart message with provider advice on recommendations. Discussed utilizing SwiftStackhart to: discuss if they would prefer a SwiftStackhart message or phone call response - See [...] Disposition Wheezing is present Protocols used: Cough-A-OH STOS SIDING MECHANIC * Telephone Encounter - Becca Stoll - 07/09/2024 9:22 AM CST Symptom: Cough Outcome: Transfer to survey coordinator queue Reason: Wheezing (high-pitched whistling sound) The caller accepted this outcome. Caller Denied: * Struggling for each breath (severe trouble breathing) * Choked on something STOS SIDING MECHANIC documented in this encounter Plan of Treatment Upcoming Encounters Date Type Department Care Team (Late st Contact Info) Description 12/04/2024 12:45 PM CDT Office Visit [facility] Medical [facility] - Family Medicine - [place] #2 [place] [address] Ana Vivar, HAND SANDER, DECORATIVE ENGRAVER APPRENTICE 2 [facility]. [address] [place] [address] 12/09/2024 11:15 AM CDT Office Visit [facility] - General Surgery - [place] #[address] [place] [address] Jose Do MD #[address] [place] [address] 01/04/2025 1:30 PM CDT Office [facility] Medical [facility] - Pulmonology & Sleep Medicine - [place] #2 [place] [address] Werner Swift MD #2 [place] [address] 03/01/2025 1:30 PM CDT [facility] - [place] #2 [place] [address] Yasmin Restrepo MD #2 [facility] [address] [place] [address] 05/13/2025 1:20 PM ASBESTOS SIDING MECHANIC Office Visit [facility] Medical Group - Family [facility] [place] #[address] [place] [address] Liz Capellan, DO 2 [facility]. [address] [place] [address] documented as of this encounter Goals Goal [...] Zones/Action plan education. I will notify my Front Desk Admin if my symptoms fall in the y [...] Respiratory Rule-Out 07/24/2024 07/24/2024 025 2:29 PM ASBESTOS SIDING MECHANIC COVID - 19 07/24/2024 07/24/2024 07/24/2024 2:29 PM ASBESTOS SIDING MECHANIC COVID - 19 08/22/2024 08/22/2024 08/22/2024 11:4 6 PM CDT COVID - 19 09/03/2024 09/03/2024 09/03/2024 12:4 7 PM CDT Assessment Noted Time PHQ-9 Depression Total Score: 4 11/08/19 9:33 AM CDT documented as of this encounter Care Teams Power Crane Operator Relationship Specialty Start Date End Date Liz Capellan DO 2 [facility] [address] [place] [address] PCP - General Family Medicine 12/27/23 Quang Locke DO Gastroenterology 01/18/16 [place] [address] [address] 05/25/21 Werner Swift MD #2 [place] [address] Consulting Physician Pulmonary Disease 01/30/22 Yasmin Restrepo MD #2 [facility] [address] [place] [address] Consulting Physician Endocrinology 07/20/24 Jose Do MD #[address] [address] Consulting Physician Colon and Rectal Surgery 10/12/24 documented as of this encounter
--- OUTSIDE RECORDS SUMMARY | 2024-12-02 13:25 | XMS_ITS | Encounter Summary ---
Author Organization [facility] Address [address] [place] [address] Phone Care Team Providers Care Journeyman Lineman Name Role Phone Quang Locke Oswaldo PRESLEY Unavailable [phone] Silvio Schulte MD Unavailable [phone] Werner Swift MD Unavailable Liz Capellan DO Primary Care Provider [phone] Yasmin Restrepo MD Unavailable Jose Do MD Unavailable Encounter Details Date Type Department Care Team (Late st Contact Info) Description 10/08/2024 Home Health Resumpti on of Care Planning [facility] [address] [place] [address] Social History Tobacco Use Types Packs/Day Years Used Date Smoking Tobacco: Former Cigarettes 2 50 1 - 03/16/2018 Smokeless Tobacco: Never Comments:Still uses nictoine patches and gum Alcohol Use Standard Drinks/Week Comments No 0 (1 standard drink = 0.6 oz pur e alcohol) [facility] Utilities Answer Date Recorded In the past 12 months has [employer], gas, oil, or water company threatened to [...] declined 10/05/2024 How often do you attend druze or rastafarian serv ices? Patient declined 10/05/2024 Do you [...] Total Score - Questions 1-9 0 06/27 [facility] of Occupat ional [facility] - Occupational Stress Questionnaire Answer Date [...] any time in the past 12 [facility], were you homeless or living in a senior living (including now)? No 10/05/2024 Education Answer Date [...] Visit [facility] - Family Medicine [facility] [address] [place] [address] Ghazala, Ana N, VOLUNTEER SERVICES DIRECTOR, GASKET FORMER [address], [address] [place] [address] 12/09/2024 11:15 AM CDT Office Visit [facility] General Surgery - [place] [address] [place] [address] Jose Do MD [facility] [address] [place] [address] 01/04/2025 1:30 PM CDT Office Visit [facility] - Pulmonology & Sleep Medicine - [place] [facility] [place] [address] Werner Swift MD #2 [facility] [place] [address] 03/01/2025 1:30 PM CDT Office Visit [facility] Endocrinology - [place] [address] [facility] [place] [address] Yasmin Restrepo MD #[address] [address] 05/13/2025 1:20 PM HUMAN RESOURCES ASSISTANT MANAGER Office Visit [facility] Family Medicine - [address] [place] [address] Liz Capellan, DO [address] [facility] [address] [address] documented as of this encounter Goals Goal [...] Zones/Action plan education. I will notify my Industrial Gas Service Helper if my symptoms fall in the [...] Total Score: 0 07/13/19 25 1:20 PM HUMAN RESOURCES ASSISTANT MANAGER documented as of this encounter Care Teams Journeyman Lineman Relationship Specialty Start Date End Date Liz Capellan DO [address] [facility] [address] [address] PCP - General Family Medicine 12/27/23 Quang Locke DO Gastroenterology 01/18/16 [place] [address] [address] 05/25/21 Werner Swift MD #2 [place] [address] Consulting Physician Pulmonary Disease 01/30/22 Yasmin Restrepo MD #[address] [address] Consulting Physician Endocrinology 07/20/24 Jose Do MD #[address] [address] Consulting Physician Colon and Rectal Surgery 10/12/24 documented as of this encounter
--- OUTSIDE RECORDS SUMMARY | 2024-12-02 13:25 | XMS_ITS | Encounter Summary ---
Author Organization [facility] Address [address] [place] [address] Phone Care Team Providers Care Bid Writer Name Role Phone Quang Locke Unavailable [phone] Keith Craft MD Primary Care Provider [phone] Bri Rollins RN Unavailable Unavailable Silvio Schulte MD Unavailable [phone] Bri Rollins RN Unavailable Unavailable Werner Swift MD Unavailable Liz Capellan DO Primary Care Provider Yasmin Restrepo MD Unavailable Jose Do MD Unavailable Reason for Visit * Reason Comments Medication Refill Encounter Details Date Type Department Care Team (Late st Contact Info) Description 11/01/2022 Refill [facility] Medical Group - Family Medicine [facility] #2 [place] [address] Keith Craft MD #1 [place] [address] Medication Refill Social History Tobacco Use Types [...] Osamado Tesfaye 07/18/22 Office Visit Kerri Kauffman, BATTALION CHIEF, SUPERVISOR MAILS [facility] 06/07/22 Office Visit [facility] Showing recent visits within past 182 [...] [facility] 07/18/22 Office Visit Kerri Kauffman, BATTALION CHIEF, SUPERVISOR MAILS [facility] 06/07/22 Office Visit Keith Craft MD [...] [facility] 07/18/22 Office Visit Kerri Kauffman, BATTALION CHIEF, SUPERVISOR MAILS [facility] 06/07/22 Office Visit Keith Craft MD [facility] 03/02/22 Procedure Visit [facility] 03/02/22 Office Visit Keith Craft MD [facility] 11/03/21 Office Visit Keith Craft MD [facility] Showing recent visits within past 365 days and meeting all other requirements Future Appointments Date Type Provider Dept 12/10/22 Appointment Keith Craft MD [facility] Showing future appointments within next 90 days and meeting all other requirements Passed - Normal TSH in past 12 months TSH Date Value Ref Range Status 03/02/2022 0.893 0.270 - 4.200 mIU/L Final documented in this encounter Plan of Treatment Upcoming Encounters Date Type Department Care Team (Late st Contact Info) Description 12/04/2024 12:45 PM CDT Office Visit [facility] Medical [facility] - Family Medicine - [place] #2 [place] [phone] Ana Vivar, BATTALION CHIEF, SUPERVISOR MAILS [address] [address] 12/09/2024 11:15 AM CDT Office Visit [facility] Medical [facility] - General Surgery - [place] #[address] [place] [address] Jose Do MD #[address] [place] [address] 01/04/2025 1:30 PM CDT Office Visit [facility] Medical [facility] - Pulmonology & Sleep Medicine - [place] #2 [facility] [place] [address] Werner Swift MD #2 [place] [address] 03/01/2025 1:30 PM CDT Office Visit [facility] Medical [facility] - Endocrinology - [place] #2 [facility] [place] [address] Yasmin Restrepo MD #[address] [place] [address] 05/13/2025 1:20 PM STACK SUPERVISOR Office Visit [facility] Medical Group - Family [facility] - [place] [address] [place] [phone] Liz Capellan, DO [address], [address]. [address] [place] [address] documented as of this encounter Goals Goal [...] plan education. I will notify my Graphic Technician if my symptoms fall in the [...] 19 04/18/2023 04/18/2023 04/28/2023 12:1 6 AM STACK SUPERVISOR COVID - 19 07/13/2023 07/13/2023 07/23/2023 12:1 6 AM STACK SUPERVISOR Respiratory Rule Out - RPA 03/17/2024 03/17/2024 1 3:36 PM CDT COVID - 19 04/27/2024 04/27/2024 04/27/2024 2:19 PM STACK SUPERVISOR Respiratory Rule-Out 07/24/2024 07/24/2024 025 2:29 PM STACK SUPERVISOR COVID - 19 07/24/2024 07/24/2024 07/24/2024 2:29 PM STACK SUPERVISOR COVID - 19 08/22/2024 08/22/2024 08/22/2024 11:4 6 PM CDT COVID - 19 09/03/2024 09/03/2024 09/03/2024 12:4 7 PM CDT Assessment Noted Time PHQ-9 Depression Total Score: 1 03/07/20 21 10:29 AM CDT documented as of this encounter Care Teams Bid Writer Relationship Specialty Start Date End Date Keith Craft MD PCP - General Family Medicine 01/14/19 12/26/23 Liz Capellan DO [address] [address] PCP - General Family Medicine 12/27/23 Quang Locke DO Gastroenterology 01/18/16 Bri Rollins RN [place] Graphic Technician 03/07/21 05/22/23 [place] [id number] [address] 05/25/21 Rollins, Bri M, RN [place] Nurse Graphic Technician 03/07/21 05/23/23 Werner Swift MD #2 [place] [address] Consulting Physician Pulmonary Disease 01/30/22 Yasmin Restrepo MD #[address] [address] Consulting Physician Endocrinology 07/20/24 Jose Do MD #[address] [address] Consulting Physician Colon and Rectal Surgery 10/12/24 documented as of this encounter
--- OUTSIDE RECORDS SUMMARY | 2024-12-02 13:25 | XMS_ITS | Clinical Summary ---
Author Organization [facility] Address [address] [place] [address] Care Team Providers Care Cnc Lathe Machine Operator Name Role Phone Keith Craft MD Primary Care Provider [phone] Luis F Frausto MD Unavailable [phone] Allergies Active Allergy Reactions Criticality Noted [...] (08/23/2021): Added automatically from request for surgery [id number] Influenza A 06/16/2017 Cardiomyopathy 06/16/2017 Septicemia 06/16/2017 Anxiety 06/16/2017 Chronic obstructive pulmonar y disease with acute exacerbation 05/21/2017 Surgical History Surgery Date Site/Laterality Comments HIP [...] Depression Hx Other Medical Gastric Reflux; Comments: EMELAI 08/09/2016 - COPD (chronic obstructive pu lmonary [...] on file Legal Sex Female 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 Gender Identity Not on file Sexual Orientation [...] P M CDT Height 155 cm (5' 1.02) 02/15/2023 1:50 PM CDT Body Mass Index 27.26 02/15/2023 1:50 PM CDT Plan of Treatment Health Maintenance Due Date Last Done Comments Depression Screening 1950 Hepatitis C Screening 1950 Hepatitis B Screening 09/19/1967 Well Visit 65+ 2014 DTaP/Tdap/Td Vaccine (2 - Td or Tdap) 02/01/2020 01/31/2010 Colon Cancer Screening-Colonoscopy 02/24/2020 02/23/2010 Fall Risk Assessment 09/13/2022 09/13/2021 Covid-19 Vaccine (5 - 2023-2 5 season) 2024 09/07/2021, 03/22/2021, 07/30/2020, Additional history exists Lung Cancer Screening 02/16/2024 02/15/2023, 022 Osteoporosis Screening-Bone Density Scan 04/03/2024 04/03/2022, 04/03/2022 Influenza Vaccine (#1) 2025 4, 03/10/2023, 01/18/2021, Additional history exists Colon Cancer Screening-CT Colonography Discontinued 02/23/2010 Colon Cancer Screening-DNA Stool Discontinued 02/24/20 10 Colon Cancer Screening-FIT Discontinued 02/23/2010 Colon Cancer Screening-Sigmoidoscopy Discontinued 02/23/2010 Zoster Vaccine Completed 02/03/2019, 02/19/2018 Pneumococcal vaccine 65+ Completed 019, 02/20/2018, 11/24/2014 Breast Cancer Screening-Mammogram Discontinued 02/26/2023, 02/26/2023, 11/28/2021, Additional history exists Medical Devices Implanted Type Area Psychological Stress Evaluator Device Identifier Shelf Expiration Date Model / Serial / Lot Icd ICD Left: Chest Procedures Procedure Name Priority Date/Time Associated Diagnosis Comments CT LUNG CANCER SCREENING Schedule Routine, Read Routine (OP Routine) 02/15/2023 1:49 PM CDT Tobacco dependency Chronic cough COLONOSCOPY 02/23/2010 12:00 AM CDT from Last 3 Months or Most Recently Relevant to Health Maintenance Results * CT Lung Cancer Screening (02/15/2023 1:49 PM CDT) Anatomical Region Laterality Modality Chest N/A Computed Tomogra phy 02/15/2023 2:55 PM CDT Impressions 02/15/2023 4:37 PM CDT 1. Lung RADS Category 2 (benign) . Recommend Low dose Screening CT of chest in 12 months. 2. Lung RADS Categories: 1 - Negative (no nodules, or only benign calcified or fat-containing nodules) 2 - Benign Appearance or Behavior (nodules with very low likelihood of becoming a clinically active cancer due to size or lack of growth) 3 - Probably Benign (probably benign findings-short term follow up suggested; includes nodules with a low likelihood of becoming a clinically active cancer) 4A,4B,4X - Suspicious (category 3 or 4 nodules with findings for which additional diagnostic testing and/or tissue sampling is recommended) S - Other (clinically significant or potentially clinically significant findings (non-lung cancer) C - Prior Lung Cancer (modifier for patients with a prior diagnosis of lung cancer who return to screening) Electronically signed by: Mya William M.D. [facility] 02/15/2023 4:37 PM CDT EXAMINATION: Lung cancer screening CT of the Chest without intravenous contrast HISTORY: Lung Cancer Screening TECHNIQUE: Low radiation dose chest protocol. No intravenous contrast. Reconstructed slice width 1.[address] Dose Index 2.29 mGy. Dose-length product 73 mGy-cm. COMPARISON: CT lung cancer screening 01/19/2022. FINDINGS: Lung nodules or findings of lung cancer: A 3 mm middle lobe nodule axial image 97 series 3, 2 mm right lower lobe nodule axial image 220, 2 mm right anterobasal nodule axial image 204 and 3 mm right paraspinal basal nodule image 225 are stable. There are 2 adjacent 2-3 mm lower lobe mandie-fissural nodules 144 and 145 which are unchanged. A 2 mm left upper lobe mandie-fissural nodule axial image 127 is also stable. No interval nodule is identified. Calcified lingular granuloma is present. Smoking related lung disease: None. Other findings: Normal heart size is seen without pericardial effusion. Moderate calcified nonaneurysmal aorta and mild coronary artery calcification is seen. Right lower paratracheal node of 7 mm short axis is unchanged. Left AICD with atrial and ventricular leads again seen. Mild lingular subpleural reticulation is stable. Osteopenia, scoliosis convex right, and moderate compression fractures at T8 and T11-T12 superior endplate concavity are unchanged. Procedure Note Mya William MD - 02/15/2023 EXAMINATION: Lung cancer screening CT of the Chest without intravenous contrast HISTORY: Lung Cancer Screening TECHNIQUE: Low radiation dose chest protocol. No intravenous contrast. Reconstructed slice width 1.[address] Dose Index 2.29 mGy. Dose-length product 73 mGy-cm. COMPARISON: CT lung cancer screening 01/19/2022. FINDINGS: Lung nodules or findings of lung cancer: A 3 mm middle lobe nodule axial image 97 series 3, 2 mm right lower lobe nodule axial image 220, 2 mm right anterobasal nodule axial image 204 and 3 mm right paraspinal basal nodule image 225 are stable. There are 2 adjacent 2-3 mm lower lobe mandie-fissural nodules 144 and 145 which are unchanged. A 2 mm left upper lobe mandie-fissural nodule axial image 127 is also stable. No interval nodule is identified. Calcified lingular granuloma is present. Smoking related lung disease: None. Other findings: Normal heart size is seen without pericardial effusion. Moderate calcified nonaneurysmal aorta and mild coronary artery calcification is seen. Right lower paratracheal node of 7 mm short axis is unchanged. Left AICD with atrial and ventricular leads again seen. Mild lingular subpleural reticulation is stable. Osteopenia, scoliosis convex right, and moderate compression fractures at T8 and T11-T12 superior endplate concavity are unchanged. IMPRESSION: 1. Lung RADS Category 2 (benign) . Recommend Low dose Screening CT of chest in 12 months. 2. Lung RADS Categories: 1 - Negative (no nodules, or only benign calcified or fat-containing nodules) 2 - Benign Appearance or Behavior (nodules with very low likelihood of becoming a clinically active cancer due to size or lack of growth) 3 - Probably Benign (probably benign findings-short term follow up suggested; includes nodules with a low likelihood of becoming a clinically active cancer) 4A,4B,4X - Suspicious (category 3 or 4 nodules with findings for which additional diagnostic testing and/or tissue sampling is recommended) S - Other (clinically significant or potentially clinically significant findings (non-lung cancer) C - Prior Lung Cancer (modifier for patients with a prior diagnosis of lung cancer who return to screening) Electronically signed by: yMa William M.D. Silvio Schulte MD IMG CT PROCEDURES Final Result * COLONOSCOPY (02/23/2010 12:00 AM CDT) Anatomical Region Laterality Modality Other Narrative 02/23/2010 12:00 AM CDT Ordered by an unspecified provider. Procedure Note ProviderKarla MD - 02/23/2010 12:00 AM CDT PROCEDURE REPORT Patient: KARY CORONADO Account: [id number] Room No: : 1950 Patient Type: OPA Attend.: Jass Huang M.D. Admit Date: 02/23/2010 Dict.: Jass Huang M.D. Disch. Date: NAME OF PROCEDURE: Colonoscopy. HISTORY OF PRESENT ILLNESS This is a 59-year-old female who presents for screening colonoscopy. PHYSICAL EXAMINATION Well developed female. Lungs are clear. Cardiovascular exam isunremarkable. PROCEDURE: Colonoscopy was performed with the [employer] video endoscope. The patientwas premedicated by anesthesia. [...] diverticulosis. 4. Hemorrhoidal disease. Jass Huang M.D. DR/rosette TD: 02/24/2010 10:39 CC: José Wiley M.D. PROCEDURE REPORT Authenticated by Jass Huang MD On 02/27/2010 08:10:11 AM Historical Provider ENDOSCOPY PROCEDURES Loren rasmussen Result from Last 3 Months or Most Recently Relevant to Health Maintenance Insurance [facility]IC[facility] [place] [address] [place] [address] [facility] [place] Advance Directives For more information, please contact: [phone] * Full Code (Latest Code Status on File) Date Activated Date Inactivated Comments 05/17/2017 9:28 PM 05/21/2017 8:00 PM Care Teams Cnc Lathe Machine Operator Relationship Specialty Start Date End Date Keith Craft MD [address] [address] PCP - General 02/05/21 Luis F Frausto MD 2 [facility] YANIRA [address] [address] Consulting Physician Interventional Cardiology 09/13/21
--- OUTSIDE RECORDS SUMMARY | 2024-12-02 13:25 | XMS_ITS | Encounter Summary ---
Author Organization [facility] Address [address] [place] [address] Phone Care Team Providers Care Air Press Operator Name Role Phone Quang Locke Unavailable [phone] Keith Craft MD Primary Care Provider [phone] Bri Rollins RN Unavailable Unavailable Silvio Schulte MD Unavailable [phone] Bri Rollins RN Unavailable Unavailable Werner Swift MD Unavailable Liz Capellan DO Primary Care Provider [phone] Yasmin Restrepo MD Unavailable Jose Do MD Unavailable Reason for Visit * Reason Comments Medication Refill Encounter Details Date Type Department Care Team (Late st Contact Info) Description 04/18/2022 Refill [facility] #2 [place] [address] Keith Craft MD [address] [place] [address] Medication Refill Social History Tobacco Use Types [...] Coronavirus/COVID-19? No / Unsure 04/20/2022 1:05 PM EDITOR documented as of this encounter Miscellaneous Notes [...] 03/02/22 Procedure Visit [facility] 03/02/22 Office Visit Keith Craft MD [facility] 11/03/21 Office Visit Keith Craft MD [facility] 10/19/21 Office Visit Keith [facility] MD [facility] Showing recent visits within past 182 days and meeting all other requirements Future Appointments Date Type Provider Dept 06/04/22 Appointment Keith Craft MD [facility] Showing future appointments within next 90 days and meeting all other requirements Passed - Has an encounter in the past 6 months with a depression or anxiety visit diagnosis OR documented in this encounter Plan of Treatment Upcoming Encounters Date Type Department Care Team (Late st Contact Info) Description 12/04/2024 12:45 PM CDT Office Visit [facility] Family [facility] [place] #2 [place] [address] Ghazala Ana N, ERP PROJECT MANAGER, WIRE MESH KNITTER 2 [facility]. [address] [place] [address] 12/09/2024 11:15 AM CDT Office Visit [facility] General Surgery - [place] #2 [facility] [address] [place] [phone] Jose Do MD #2 [facility] [address] [place] [address] 01/04/2025 1:30 PM CDT Office Visit [facility] - Pulmonology & Sleep Medicine - [place] #2 [place] [address] Werner Swift MD #2 [place] [address] 03/01/2025 1:30 PM CDT Office Visit [facility] - Endocrinology - [place] #2 [place] [phone] Yasmin Restrepo MD #2 [facility] [address] [place] [phone] 05/13/2025 1:20 PM EDITOR Office Visit [facility] Family Medicine - [place] [address]2 [place] [address] Liz Capellan, DO 2 [address] [place] [address] documented as of this encounter Goals Goal [...] Zones/Action plan education. I will notify my Engine Emission Technician if my symptoms fall in the [...] 19 04/20/2022 04/20/2022 04/30/2022 12:1 8 AM EDITOR COVID - 19 07/18/2022 07/18/2022 07/28/2022 12:1 6 AM EDITOR COVID - 19 08/21/2022 08/21/2022 08/22/2022 8:31 AM CDT Respiratory Rule Out - RPA 08/21/2022 08/21/2022 0 08/22/2022 3:21 PM CDT COVID - 19 04/18/2023 04/18/2023 04/28/2023 12:1 6 AM EDITOR COVID - 19 07/13/2023 07/13/2023 07/23/2023 12:1 6 AM EDITOR Respiratory Rule Out - RPA 03/17/2024 03/17/2024 1 3:36 PM CDT COVID - 19 04/27/2024 04/27/2024 04/27/2024 2:19 PM EDITOR Respiratory Rule-Out 07/24/2024 07/24/2024 025 2:29 PM EDITOR COVID - 19 07/24/2024 07/24/2024 07/24/2024 2:29 PM EDITOR COVID - 19 08/22/2024 08/22/2024 08/22/2024 11:4 6 PM CDT COVID - 19 09/03/2024 09/03/2024 09/03/2024 12:4 7 PM CDT Assessment Noted Time PHQ-9 Depression Total Score: 1 03/07/20 21 10:29 AM CDT documented as of this encounter Care Teams Air Press Operator Relationship Specialty Start Date End Date Keith Craft MD PCP - General Family Medicine 01/14/19 12/26/23 Liz Capellan DO [address] [address] PCP - General Family Medicine 12/27/23 Quang Locke DO Gastroenterology 01/18/16 Bri Rollins RN [place] Engine Emission Technician 03/07/21 05/22/23 [place] [id number] [address] 05/25/21 Bri Rollins, RN [place] Nurse Engine Emission Technician 03/07/21 05/23/23 Werner Switf MD #2 [place] [phone] Consulting Physician Pulmonary Disease 01/30/22 Yasmin Restrepo MD #[address] [address] Consulting Physician Endocrinology 07/20/24 Jose Do MD #[address] [address] Consulting Physician Colon and Rectal Surgery 10/12/24 documented as of this encounter
--- OUTSIDE RECORDS SUMMARY | 2024-12-02 13:25 | XMS_ITS | Encounter Summary ---
Author Organization [facility] Address [address] [place] [address] Phone Care Team Providers Care Fish And Wildlife Technician Name Role Phone Quang Lcoke Unavailable [phone] Keith Craft MD Primary Care Provider [phone] Bri Rollins RN Unavailable Unavailable Silvio Schulte MD Unavailable [phone] Bri Rollins RN Unavailable Unavailable Werner Swift MD Unavailable Liz Capellan DO Primary Care Provider [phone] Yasmin Restrepo MD Unavailable Jose Do MD Unavailable Reason for Visit * Reason Comments Medication Refill Encounter Details Date Type Department Care Team (Late st Contact Info) Description 04/11/2021 Refill [facility] #2 [place] [address] Keith Craft MD #1 [place] [address] Medication Refill Social History Tobacco Use Types [...] COVID-19? No / Unsure 04/14/2021 1:20 PM CASTING DIRECTOR documented as of this encounter Miscellaneous Notes [...] 2 weeks ago Acute bronchitis, unspecified organism [facility] - Family Medicine - Keith Jenkins MD 2 months ago Pneumonia of right lower lobe due to infectious organism [facility] - Keith Jenkins MD 2 months ago Type 2 diabetes mellitus with diabetic neuropathy, with long-term current use of insulin (HCC) [facility] Family [facility] - Brie Castano PAC 2 months ago Chronic low back pain, unspecified back pain laterality, unspecified whether sciatica present [facility] Keith Lemus MD 6 months ago Pneumonia of right upper lobe due to infectious organism [facility] Keith Lemus MD Upcoming Appointments Future Appointments In 3 days Keith Craft MD [facility], [facility] MANUFACTURING SR ENGINEER - Recent and Past Visits Recent Visits Date Type Provider Dept 03/23/21 Office Visit Keith Craft MD [facility] 02/07/21 Office Visit Keith Craft MD [facility] 02/03/21 Office Visit Cira YarelyNICOLE Carreno [facility] 01/12/21 Office Visit Keith Craft MD [facility] 10/12/20 Office Visit Keith Craft MD [facility] 10/04/20 Office Visit Keith Craft MD [facility] 06/07/20 Office Visit Keith Craft MD [facility] 04/25/20 Office Visit Keith Craft MD [facility] 02/02/20 Office Visit Keith Craft MD [facility] Showing recent visits within past 460 days with a meds authorizing provider and meeting all other requirements Future Appointments Date Type Provider Dept 04/14/21 Appointment Keith Craft MD [facility] Showing future appointments within next 90 days with a meds authorizing provider and meeting all other requirements diazePAM (VALIUM) 10 MG Tablet [Pharmacy Med Name: DIAZEPAM 10 MG TAB 10 Tablet] 30 Tablet 0 Sig: Take 1 Tablet by mouth daily. There is no refill protocol information for this order ING DIRECTOR documented in this encounter Plan of Treatment Upcoming Encounters Date Type Department Care Team (Late st Contact Info) Description 12/04/2024 12:45 PM CDT Office Visit [facility] #2 [place] [address] Ana Vivar, PERSONAL INJURY LAW SPECIALIST, SKIN CARE THERAPIST 2 [facility] [address] [place] [address] 12/09/2024 11:15 AM CDT [facility] [place] [address] [place] [address] Jose Do MD #2 [facility] [address] [place] [address] 01/04/2025 1:30 PM CDT Office Visit [facility] - Pulmonology & Sleep Medicine - [place] #[address] [facility] [place] [address] Werner Swift MD #2 [place] [address] 03/01/2025 1:30 PM CDT Office Visit [facility] Endocrinology - [place] #[address] [facility] [place] [address] Yasmin Restrepo MD #[address] [place] [address] 05/13/2025 1:20 PM CASTING DIRECTOR [facility] [place] #2 [facility] [place] [address] Liz Capellan, DO 2 [facility] [address] [place] [address] documented as of this encounter Goals Goal [...] plan education. I will notify my Medical Consultant if my symptoms fall in the [...] - 19 07/23/2021 07/23/2021 07/24/2021 6:31 AM CASTING DIRECTOR COVID - 19 10/19/2021 10/19/2021 10/20/2021 7:45 AM CDT Respiratory Rule Out - RPA 10/19/2021 10/19/2021 0 10/20/2021 2:10 PM CDT Stenotrophomonas maltophilia Comment:Must have a follow up respiratory sample to remove isolation/infection flag. 10/20/2021 10/20/2021 COVID - 19 04/20/2022 04/20/2022 04/30/2022 12:1 8 AM CASTING DIRECTOR COVID - 19 07/18/2022 07/18/2022 07/28/2022 12:1 6 AM CASTING DIRECTOR COVID - 19 08/21/2022 08/21/2022 08/22/2022 8:31 AM CDT Respiratory Rule Out - RPA 08/21/2022 08/21/2022 0 08/22/2022 3:21 PM CDT COVID - 19 04/18/2023 04/18/2023 04/28/2023 12:1 6 AM CASTING DIRECTOR COVID - 19 07/13/2023 07/13/2023 07/23/2023 12:1 6 AM CASTING DIRECTOR Respiratory Rule Out - RPA 03/17/2024 03/17/2024 1 3:36 PM CDT COVID - 19 04/27/2024 04/27/2024 04/27/2024 2:19 PM CASTING DIRECTOR Respiratory Rule-Out 07/24/2024 07/24/2024 025 2:29 PM CASTING DIRECTOR COVID - 19 07/24/2024 07/24/2024 07/24/2024 2:29 PM CASTING DIRECTOR COVID - 19 08/22/2024 08/22/2024 08/22/2024 11:4 6 PM CDT COVID - 19 09/03/2024 09/03/2024 09/03/2024 12:4 7 PM CDT Assessment Noted Time PHQ-9 Depression Total Score: 1 03/07/20 21 10:29 AM CDT documented as of this encounter Care Teams Fish And Wildlife Technician Relationship Specialty Start Date End Date Keith Craft MD PCP - General Family Medicine 01/14/19 12/26/23 Liz Capellan DO [address] [address] PCP - General Family Medicine 12/27/23 Quang Locke DO Gastroenterology 01/18/16 Bri Rollins RN [place] Medical Consultant 03/07/21 05/22/23 [place] [id number] [address] 05/25/21 Bri Rollins, RN [place] Nurse Medical Consultant 03/07/21 05/23/23 Werner Swift MD #2 [place] [address] Consulting Physician Pulmonary Disease 01/30/22 Yasmin Restrepo MD #[address] [address] Consulting Physician Endocrinology 07/20/24 Jose Do MD #[address] [address] Consulting Physician Colon and Rectal Surgery 10/12/24 documented as of this encounter
--- OUTSIDE RECORDS SUMMARY | 2024-12-02 13:25 | XMS_ITS | Encounter Summary ---
Author Organization [facility] Address [address] [place] [address] Phone Care Team Providers Care Locate Technician Name Role Phone Quang Locke Unavailable [phone] Keith Craft MD Primary Care Provider [phone] Bri Rollins RN Unavailable Unavailable Silvio Schulte MD Unavailable [phone] Bri Rollins RN Unavailable Unavailable Werner Swift MD Unavailable Liz Capellan DO Primary Care Provider [phone] Yasmin Restrepo MD Unavailable Jose Do MD Unavailable Reason for Visit * Reason Comments Medication Refill Encounter Details Date Type Department Care Team (Late st Contact Info) Description 09/29/2022 Refill [facility] #2 [place] [address] Keith Craft MD #1 [place] [address] Medication Refill Social History Tobacco Use Types [...] Dept 09/10/22 Office Visit Keith Craft MD [facility] 07/18/22 Office Visit Kerri Kauffman, VOCATIONAL INSTRUCTOR, POT ANNEALER [facility] 06/07/22 Office Visit Keith Craft MD [facility] 03/02/22 Procedure Visit [facility] [place] 03/02/22 Office Visit Keith Craft MD [facility] [place] 11/03/21 Office Visit Keith Craft MD [facility] 10/19/21 Office Visit Keith Craft MD [facility] 10/05/21 Office Visit Keith Craft MD [facility] Showing recent visits within past 365 [...] 09/10/22 Office Visit Keith Craft MD [facility] 07/18/22 Office Visit Kerri Kauffman APRN, JAKOB [facility] 06/07/22 Office Visit Keith Craft MD [facility] 03/02/22 Procedure Visit [facility] [place] 03/02/22 Office Visit Keith Craft MD [facility] 11/03/21 Office Visit Keith Craft MD [facility] 10/19/21 Office Visit Keith Craft MD [facility] 10/05/21 Office Visit Keith Craft MD [facility] 09/08/21 Office Visit Brie Denis PAC [facility] 08/14/21 Office Visit Keith Craft MD [facility] Showing recent visits within past 730 days and meeting all other requirements Future Appointments Date Type Provider Dept 12/10/22 Appointment Keith Craft MD [facility] Showing future appointments within next 90 days and meeting all other requirements Passed - No documented Systolic BP > 200 within past 3 months Passed - Number of active Serotonergic medications less than 3 documented in this encounter Plan of Treatment Upcoming Encounters Date Type Department Care Team (Late st Contact Info) Description 12/04/2024 12:45 PM CDT Office Visit [facility] Family [facility] [place] #2 [place] [address] Ana Vivar N, VOCATIONAL INSTRUCTOR, POT ANNEALER 2 [facility] [address] [place] [address] 12/09/2024 11:15 AM CDT Office Visit [facility] General Surgery - [place] #2 [facility] [address] [place] [address] Jose Do MD #2 [facility] [address] [place] [address] 01/04/2025 1:30 PM CDT Office Visit [facility] - Pulmonology & Sleep Medicine - [place] #2 [facility] [address] Werner Swift MD #2 [facility] [place] [address] 03/01/2025 1:30 PM CDT Office Visit [facility] - Endocrinology - [place] #2 [facility] [place] [address] Yasmin Restrepo MD #2 [facility] [address] [place] [address] 05/13/2025 1:20 PM AUTOMATIC CIGAR WRAPPER TENDER Office Visit [facility] - Family [facility] #[address] [place] [address] iLz Capellan, DO 2 [facility] [address]. [address] [place] [address] documented as of this encounter Goals Goal [...] Zones/Action plan education. I will notify my Mica Patcher if my symptoms fall in the y [...] 19 04/18/2023 04/18/2023 04/28/2023 12:1 6 AM AUTOMATIC CIGAR WRAPPER TENDER COVID - 19 07/13/2023 07/13/2023 07/23/2023 12:1 6 AM AUTOMATIC CIGAR WRAPPER TENDER Respiratory Rule Out - RPA 03/17/2024 03/17/2024 1 3:36 PM CDT COVID - 19 04/27/2024 04/27/2024 04/27/2024 2:19 PM AUTOMATIC CIGAR WRAPPER TENDER Respiratory Rule-Out 07/24/2024 07/24/2024 025 2:29 PM AUTOMATIC CIGAR WRAPPER TENDER COVID - 19 07/24/2024 07/24/2024 07/24/2024 2:29 PM AUTOMATIC CIGAR WRAPPER TENDER COVID - 19 08/22/2024 08/22/2024 08/22/2024 11:4 6 PM CDT COVID - 19 09/03/2024 09/03/2024 09/03/2024 12:4 7 PM CDT Assessment Noted Time PHQ-9 Depression Total Score: 1 03/07/20 21 10:29 AM CDT documented as of this encounter Care Teams Locate Technician Relationship Specialty Start Date End Date Keith Craft MD PCP - General Family Medicine 01/14/19 12/26/23 Liz Capellan DO [address] [id number] PCP - General Family Medicine 12/27/23 Quang Locke DO Gastroenterology 01/18/16 Bri Rollins, [place] Mica Patcher 03/07/21 05/22/23 [place] [id number] [address] 05/25/21 Bri Rollins RN [place] Nurse Mica Patcher 03/07/21 05/23/23 Werner Swift MD #2 [place] [address] Consulting Physician Pulmonary Disease 01/30/22 Yasmin Restrepo MD #[address] [address] Consulting Physician Endocrinology 07/20/24 Jose Do MD #[address] [address] Consulting Physician Colon and Rectal Surgery 10/12/24 documented as of this encounter
--- OUTSIDE RECORDS SUMMARY | 2024-12-02 13:25 | XMS_ITS | Encounter Summary ---
Author Organization [facility] Address [address] [place] [address] Phone Care Team Providers Care Machine Puller And Laster Name Role Phone Quang Locke DO Unavailable [phone] Keith Craft MD Primary Care Provider [phone] Silvio Schulte MD Unavailable [phone] Werner Swift MD Unavailable Liz Capellan DO Primary Care Provider [phone] Yasmin Restrepo MD Unavailable Jose Do MD Unavailable Reason for Visit * Reason Onset Date Comments Medication Refill Follow-up 11/08/2023 Encounter Details Date Type Department Care Team (Late st Contact Info) Description 11/08/2023 Telephone [facility] - Family [facility] #2 [place] [address] Keith Craft MD #1 [place] [address] Medication Refill; Follow-up Social History Tobacco Use Types Packs/Day Years Used Date Smoking Tobacco: Former Cigarettes 2 50 1 - 03/16/2018 Smokeless Tobacco: Never Comments:Still uses nictoine patches and gum Alcohol Use Standard Drinks/Week Comments No 0 (1 standard drink = 0.6 oz pur e alcohol) [facility] Utilities Answer Date Recorded In the [...] often do you attend chur ch or christian services? Never 07/13/2023 Do you belong to [...] Total Score - Questions 1-9 4 10/25 [facility] [place] of Occupat ional Health - Occupational Stress [...] Assessment: Patient states she spoke to [facility] today 11/11/23 and they have not received a script for her diazepam 5 mg Recommendations: Please advise * Telephone Encounter - Gloria Cornejo RN - 11/08/2023 1:07 PM CDT duplicate documented in this encounter Plan of Treatment Upcoming Encounters Date Type Department Care Team (Late st Contact Info) Description 12/04/2024 12:45 PM CDT Office Visit [facility] Medical [facility] - Family Medicine - [place] #2 [place] [address] Ana Vivar, GLAZE SUPERVISOR, DIRECTOR OF BROADCAST 2 [facility]. [address] [place] [address] 12/09/2024 11:15 AM CDT Office Visit [facility] - General Surgery - [place] #2 [facility] [address] [place] [address] Jose Do MD #2 [facility] [address] [place] [address] 01/04/2025 1:30 PM CDT Office Visit [facility] Medical [facility] - Pulmonology & Sleep Medicine - [place] #2 [place] [address] Werner Swift MD #2 [place] [address] 03/01/2025 1:30 PM CDT Office Visit [facility] - Endocrinology - [place] #2 [place] [address] Yasmin Restrepo MD #2 [facility] [address] [place] [address] 05/13/2025 1:20 PM STATE WILDLIFE OFFICER Office Visit [facility] Family Medicine - [place] #2 [place] [address] Liz Capellan, DO 2 [facility] [address] [place], [place] [address] documented as of this encounter Goals Goal [...] Zones/Action plan education. I will notify my Transonic Engineer if my symptoms fall in the [...] - 19 04/27/2024 04/27/2024 04/27/2024 2:19 PM STATE WILDLIFE OFFICER Respiratory Rule-Out 07/24/2024 07/24/2024 025 2:29 PM STATE WILDLIFE OFFICER COVID - 19 07/24/2024 07/24/2024 07/24/2024 2:29 PM STATE WILDLIFE OFFICER COVID - 19 08/22/2024 08/22/2024 08/22/2024 11:4 6 PM CDT COVID - 19 09/03/2024 09/03/2024 09/03/2024 12:4 7 PM CDT Assessment Noted Time PHQ-9 Depression Total Score: 4 11/08/19 24 9:33 AM CDT documented as of this encounter Care Teams Machine Puller And Laster Relationship Specialty Start Date End Date Keith Craft MD PCP - General Family Medicine 01/14/19 12/26/23 Liz Capellan DO 2 [place] [address] PCP - General Family Medicine 12/27/23 Quang Locke DO Gastroenterology 01/18/16 [place] [address] [address] 05/25/21 Werner Swift MD #2 [place] [address] Consulting Physician Pulmonary Disease 01/30/22 Yasmin Restrepo MD #[address] [address] Consulting Physician Endocrinology 07/20/24 Jose Do MD #[address] [address] Consulting Physician Colon and Rectal Surgery 10/12/24 documented as of this encounter
--- OUTSIDE RECORDS SUMMARY | 2024-12-02 13:25 | XMS_ITS | Encounter Summary ---
Author Organization [facility] Address [address] [place] [address] Phone Care Team Providers Care Financial Writer Name Role Phone Quang Locke Unavailable [phone] Keith Craft MD Primary Care Provider [phone] Bri Rollins RN Unavailable Unavailable Silvio Schulte MD Unavailable [phone] Bri Rollins RN Unavailable Unavailable Werner Swift MD Unavailable Liz Capellan DO Primary Care Provider [phone] Yasmin Restrepo MD Unavailable Jose Do MD Unavailable Reason for Visit * Reason Comments Medication Refill Encounter Details Date Type Department Care Team (Late st Contact Info) Description 05/04/2021 Refill [facility] - Family Medicine [facility] #2 [place] [address] Keith Craft MD #1 [place] [address] Medication Refill Social History Tobacco Use Types [...] COVID-19? No / Unsure 05/05/2021 3:02 PM ANAESTHESIOLOGIST documented as of this encounter Miscellaneous Notes * Telephone Encounter - Gloria Cornejo RN - 05/05/2021 10:59 AM CST Name from pharmacy: DIAZEPAM 10 MG TAB 10 Tablet Will file in chart as: diazePAM (VALIUM) 10 MG Tablet The original prescription was discontinued on 03/23/2021 by Keith Craft MD STHESIOLOGIST documented in this encounter Plan of Treatment Upcoming Encounters Date Type Department Care Team (Late st Contact Info) Description 12/04/2024 12:45 PM CDT Office Visit [facility] Medical Group - Family Medicine - [place] #2 [place] [address] Ana Vivar, LEAF SUCKER OPERATOR, MARINE FIRE FIGHTER 2 [facility]. [address] [place] [address] 12/09/2024 11:15 AM CDT Office Visit [facility] Medical [facility] - General Surgery - [place] #2 [facility] [address] [place] [address] Jose Do MD #[address] [address] 01/04/2025 1:30 PM CDT Office Visit [facility] - Pulmonology & Sleep Medicine - [place] #2 [place] [address] Werner Swift MD #2 [place] [address] 03/01/2025 1:30 PM CDT Office Visit [facility] - Endocrinology - [place] #2 [place] [address] Yasmin Restrepo MD #[address] [address] 05/13/2025 1:20 PM ANAESTHESIOLOGIST Office Visit [facility] - Family Medicine - [place] #2 [place] [address] Liz Capellan, DO [address] [address] documented as of this encounter Goals Goal [...] Zones/Action plan education. I will notify my Customer Service Administrator if my symptoms fall in the y [...] - 19 07/23/2021 07/23/2021 07/24/2021 6:31 AM ANAESTHESIOLOGIST COVID - 19 10/19/2021 10/19/2021 10/20/2021 7:45 AM CDT Respiratory Rule Out - RPA 10/19/2021 10/19/2021 0 10/20/2021 2:10 PM CDT Stenotrophomonas maltophilia Comment:Must have a follow up respiratory sample to remove isolation/infection flag. 10/20/2021 10/20/2021 COVID - 19 04/20/2022 04/20/2022 04/30/2022 12:1 8 AM ANAESTHESIOLOGIST COVID - 19 07/18/2022 07/18/2022 07/28/2022 12:1 6 AM ANAESTHESIOLOGIST COVID - 19 08/21/2022 08/21/2022 08/22/2022 8:31 AM CDT Respiratory Rule Out - RPA 08/21/2022 08/21/2022 0 08/22/2022 3:21 PM CDT COVID - 19 04/18/2023 04/18/2023 04/28/2023 12:1 6 AM ANAESTHESIOLOGIST COVID - 19 07/13/2023 07/13/2023 07/23/2023 12:1 6 AM ANAESTHESIOLOGIST Respiratory Rule Out - RPA 03/17/2024 03/17/2024 1 3:36 PM CDT COVID - 19 04/27/2024 04/27/2024 04/27/2024 2:19 PM ANAESTHESIOLOGIST Respiratory Rule-Out 07/24/2024 07/24/2024 025 2:29 PM ANAESTHESIOLOGIST COVID - 19 07/24/2024 07/24/2024 07/24/2024 2:29 PM ANAESTHESIOLOGIST COVID - 19 08/22/2024 08/22/2024 08/22/2024 11:4 6 PM CDT COVID - 19 09/03/2024 09/03/2024 09/03/2024 12:4 7 PM CDT Assessment Noted Time PHQ-9 Depression Total Score: 1 03/07/20 21 10:29 AM CDT documented as of this encounter Care Teams Financial Writer Relationship Specialty Start Date End Date Keith Craft MD PCP - General Family Medicine 01/14/19 12/26/23 Liz Capellan DO [address] [address] PCP - General Family Medicine 12/27/23 Quang Locke DO Gastroenterology 01/18/16 Bri Rollins RN [place] Customer Service Administrator 03/07/21 05/22/23 [place] [address] [address] 05/25/21 Bri Rollins, RN [place] Nurse Customer Service Administrator 03/07/21 05/23/23 Werner Swift MD #2 [place] [address] Consulting Physician Pulmonary Disease 01/30/22 Yasmin Restrepo MD #[address] [address] Consulting Physician Endocrinology 07/20/24 Jose Do MD #2 [facility] [address] [address] Consulting Physician Colon and Rectal Surgery 10/12/24 documented as of this encounter
--- OUTSIDE RECORDS SUMMARY | 2024-12-02 13:25 | XMS_ITS | Encounter Summary ---
Author Organization [facility] Address [address] [place] [address] Phone Care Team Providers Care Managing Cognitive Engineer Name Role Phone Quang Locke Unavailable [phone] Keith Craft MD Primary Care Provider [phone] Bri Rollins RN Unavailable Unavailable Silvio Schulte MD Unavailable [phone] Bri Rollins RN Unavailable Unavailable Werner Swift MD Unavailable Liz Capellan DO Primary Care Provider [phone] Yasmin Restrepo MD Unavailable Jose Do MD Unavailable Reason for Visit * Reason Comments Medication Refill Encounter Details Date Type Department Care Team (Late st Contact Info) Description 04/25/2021 Refill [facility] - Family Medicine [facility] #2 [place] [address] Keith Craft MD #1 [place] [address] Medication Refill Social History Tobacco Use Types [...] COVID-19? No / Unsure 04/18/2021 1:18 PM METAL TURNER documented as of this encounter Miscellaneous Notes [...] Outpatient Visits 1 week ago Mixed hyperlipidemia [facility] Medical [facility] - Family Medicine - Keith Jenkins MD 1 month ago Acute bronchitis, unspecified organism [facility] Medical [facility] Family [facility] Keith Lemus MD 2 months ago Pneumonia of right lower lobe due to infectious organism [facility] Family [facility] Keith Lemus MD 2 months ago Type 2 diabetes mellitus with diabetic neuropathy, with long-term current use of insulin (HCC) [facility] Family Medicine - BrienBrie Plaza, NICOLE 3 months ago Chronic low back pain, unspecified back pain laterality, unspecified whether sciatica present [facility] - Keith Jenkins MD Upcoming Appointments Future Appointments In 3 months Keith Craft MD [facility] Family [facility] - [place], [facility] SUPERVISOR POLICY CHANGE CLERKS - Recent and Past Visits Recent Visits Date Type Provider Dept 04/14/21 Office Visit Keith Craft MD [facility] [place] 03/23/21 Office Visit Keith Craft MD [facility] [place] 02/07/21 Office Visit Keith Craft MD [facility] [place] 02/03/21 Office Visit Brie Denis, NICOLE [facility] [place] 01/12/21 Office Visit Keith Craft MD [facility] [place] 10/12/20 Office Visit Keith Craft MD [facility] [place] 10/04/20 Office Visit Keith Craft MD [facility] [place] 06/07/20 Office Visit Keith Craft MD [facility] [place] 04/25/20 Office Visit Keith Craft MD [facility] [place] 02/02/20 Office Visit Keith Craft MD [facility] Showing recent visits within past 460 days with a meds authorizing provider and meeting all other requirements Future Appointments No visits were found meeting these conditions. Showing future appointments within next 90 days with a meds authorizing provider and meeting all other requirements Passed - Last BP in normal range BP Readings from Last 1 Encounters: 04/14/21 110/64 L TURNER documented in this encounter Plan of Treatment Upcoming Encounters Date Type Department Care Team (Late st Contact Info) Description 12/04/2024 12:45 PM CDT Office Visit [facility] - [place] [address] [place] [address] Ana Vivar, LATHE PULLER, WASTE AND BATTING WASTE CHOPPER 2 [facility] [place]. [address] [place] [address] 12/09/2024 11:15 AM CDT Office Visit [facility] - General Surgery - [place] #2 [facility] [address] [place] [address] Jose Do MD #2 [facility] [address] [place] [address] 01/04/2025 1:30 PM CDT Office Visit [facility] - Pulmonology & Sleep Medicine - [place] #2 [facility] [place] [address] Werner Swift MD #[address] [place] [address] 03/01/2025 1:30 PM CDT Office Visit [facility] - Endocrinology - [place] #2 [facility] [place] [address] Yasmin Restrepo MD #2 [facility] [address] [place] [address] 05/13/2025 1:20 PM METAL TURNER Office Visit [facility] Family Medicine - [place] #2 [place] [address] Liz Capellan, DO 2 [facility] [address] [place] [address] documented as of this encounter Goals Goal [...] Zones/Action plan education. I will notify my Hub Borer if my symptoms fall in the y [...] - 19 07/23/2021 07/23/2021 07/24/2021 6:31 AM METAL TURNER COVID - 19 10/19/2021 10/19/2021 10/20/2021 7:45 AM CDT Respiratory Rule Out - RPA 10/19/2021 10/19/2021 0 10/20/2021 2:10 PM CDT Stenotrophomonas maltophilia Comment:Must have a follow up respiratory sample to remove isolation/infection flag. 10/20/2021 10/20/2021 COVID - 19 04/20/2022 04/20/2022 04/30/2022 12:1 8 AM METAL TURNER COVID - 19 07/18/2022 07/18/2022 07/28/2022 12:1 6 AM METAL TURNER COVID - 19 08/21/2022 08/21/2022 08/22/2022 8:31 AM CDT Respiratory Rule Out - RPA 08/21/2022 08/21/2022 0 08/22/2022 3:21 PM CDT COVID - 19 04/18/2023 04/18/2023 04/28/2023 12:1 6 AM METAL TURNER COVID - 19 07/13/2023 07/13/2023 07/23/2023 12:1 6 AM METAL TURNER Respiratory Rule Out - RPA 03/17/2024 03/17/2024 1 3:36 PM CDT COVID - 19 04/27/2024 04/27/2024 04/27/2024 2:19 PM METAL TURNER Respiratory Rule-Out 07/24/2024 07/24/2024 025 2:29 PM METAL TURNER COVID - 19 07/24/2024 07/24/2024 07/24/2024 2:29 PM METAL TURNER COVID - 19 08/22/2024 08/22/2024 08/22/2024 11:4 6 PM CDT COVID - 19 09/03/2024 09/03/2024 09/03/2024 12:4 7 PM CDT Assessment Noted Time PHQ-9 Depression Total Score: 1 03/07/20 10:29 AM CDT documented as of this encounter Care Teams Managing Cognitive Engineer Relationship Specialty Start Date End Date Keith Craft MD PCP - General Family Medicine 01/14/19 12/26/23 Liz Capellan DO [address] [address] PCP - General Family Medicine 12/27/23 Quang Locke DO Gastroenterology 01/18/16 Bri Rollins RN [place] Hub Borer 03/07/21 05/22/23 [place] [id number] [address] 05/25/21 Bri Rollins RN [place] Nurse Hub Borer 03/07/21 05/23/23 Werner Swift MD #2 [place] [address] Consulting Physician Pulmonary Disease 01/30/22 Yasmin Restrepo MD #[address] [address] Consulting Physician Endocrinology 07/20/24 Jose Do MD #[address] [address] Consulting Physician Colon and Rectal Surgery 10/12/24 documented as of this encounter
--- OUTSIDE RECORDS SUMMARY | 2024-12-02 13:25 | XMS_ITS | Encounter Summary ---
Author Organization [facility] Address [address] [place] [address] Phone Care Team Providers Care Pull Worker Name Role Phone Quang Locke Unavailable [phone] Keith Craft MD Primary Care Provider [phone] Bri Rollins RN Unavailable Unavailable Silvio Schulte MD Unavailable [phone] Bri Rollins RN Unavailable Unavailable Werner Swift MD Unavailable Liz Capellan DO Primary Care Provider Yasmin Restrepo MD Unavailable Jose Do MD Unavailable Reason for Visit * Reason Comments Medication Refill Encounter Details Date Type Department Care Team (Late st Contact Info) Description 03/23/2021 Refill [facility] - Family Medicine [facility] #2 [place] [address] Keith Craft MD #1 [place] [address] Medication Refill Social History Tobacco Use Types [...] [place] 10/04/20 Office Visit Keith Craft MD [facility] Showing recent visits within past 182 days and meeting all other requirements Today's Visits Date Type Provider Dept 03/23/21 Office Visit Keith Craft MD [facility] Showing today's visits and meeting all other requirements Future Appointments Date Type Provider Dept 04/14/21 Appointment Keith Craft MD [facility] [place] Showing future appointments within next 90 days and meeting all other requirements Passed - Has an encounter in the past 6 months with a depression or anxiety visit diagnosis documented in this encounter Plan of Treatment Upcoming Encounters Date Type Department Care Team (Late st Contact Info) Description 12/04/2024 12:45 PM CDT Office Visit [facility] Medical [facility] - Family Medicine - [place] #2 [facility] [place] [phone] Ana Vivar, ULTRASOUND COORDINATOR, METAL DRAWER 2 [facility] [address] [place] [address] 12/09/2024 11:15 AM CDT Office Visit [facility] Medical [facility] - General Surgery - [place] #[address] [place] [phone] Jose Do MD #[address] [place] [address] 01/04/2025 1:30 PM CDT Office Visit [facility] - Pulmonology & Sleep Medicine - [place] #2 [place] [phone] Werner Swift MD #2 [place] [address] 03/01/2025 1:30 PM CDT Office Visit [facility] Medical [facility] - Endocrinology - [place] #2 [place] [address] Yasmin Restrepo MD #[address] [place] [address] 05/13/2025 1:20 PM FARMWORKER [employer]ER [employer]ARM Office Visit [facility] Medical Group - [facility] - [place] #[address] [place] [address] Liz Capellan, DO 2 [address] [place] [address] documented as of this encounter Goals Goal [...] Zones/Action plan education. I will notify my Squadron Worker if my symptoms fall in the [...] - 19 07/23/2021 07/23/2021 07/24/2021 6:31 AM FARMWORKER [employer] COVID - 19 10/19/2021 10/19/2021 10/20/2021 7:45 AM CDT Respiratory Rule Out - RPA 10/19/2021 10/19/2021 0 10/20/2021 2:10 PM CDT Stenotrophomonas maltophilia Comment:Must have a follow up respiratory sample to remove isolation/infection flag. 10/20/2021 10/20/2021 COVID - 19 04/20/2022 04/20/2022 04/30/2022 12:1 8 AM FARMWORKER [employer] COVID - 19 07/18/2022 07/18/2022 07/28/2022 12:1 6 AM FARMWORKER [employer] COVID - 19 08/21/2022 08/21/2022 08/22/2022 8:31 AM CDT Respiratory Rule Out - RPA 08/21/2022 08/21/2022 0 08/22/2022 3:21 PM CDT COVID - 19 04/18/2023 04/18/2023 04/28/2023 12:1 6 AM FARMWORKER [employer] COVID - 19 07/13/2023 07/13/2023 07/23/2023 12:1 6 AM FARMWORKER [employer] Respiratory Rule Out - RPA 03/17/2024 03/17/2024 1 3:36 PM CDT COVID - 19 04/27/2024 04/27/2024 04/27/2024 2:19 PM FARMWORKER [employer] Respiratory Rule-Out 07/24/2024 07/24/2024 2:29 PM FARMWORKER [employer] COVID - 19 07/24/2024 07/24/2024 07/24/2024 2:29 PM FARMWORKER [employer] COVID - 19 08/22/2024 08/22/2024 08/22/2024 11:4 6 PM CDT COVID - 19 09/03/2024 09/03/2024 09/03/2024 12:4 7 PM CDT Assessment Noted Time PHQ-9 Depression Total Score: 1 03/07/20 21 10:29 AM CDT documented as of this encounter Care Teams Pull Worker Relationship Specialty Start Date End Date Keith Craft MD PCP - General Family Medicine 01/14/19 12/26/23 Liz Capellan DO 2 [facility] [address] [place] [address] PCP - General Family Medicine 12/27/23 Quang Locke DO Gastroenterology 01/18/16 Bri Rollins, RN [place] Squadron Worker 03/07/21 05/22/23 [place] [id number] [address] 05/25/21 Bri Rollins, RN [place] Nurse Squadron Worker 03/07/21 05/23/23 Werner Swift MD #2 [place] [address] Consulting Physician Pulmonary Disease 01/30/22 Yasmin Restrepo MD #[address] [address] Consulting Physician Endocrinology 07/20/24 Jose Do MD #[address] [address] Consulting Physician Colon and Rectal Surgery 10/12/24 documented as of this encounter
--- OUTSIDE RECORDS SUMMARY | 2024-12-02 13:25 | XMS_ITS | Referral Summary ---
Author Organization [facility] Address [address] [place] [address] Care Team Providers Care Circulating Nurse Name Role Phone Keith Craft MD Primary Care Provider [phone] Luis F Frausto MD Unavailable [phone] Allergies Active Allergy Reactions Criticality Noted [...] (08/23/2021): Added automatically from request for surgery [id number] Influenza A 06/16/2017 Cardiomyopathy 06/16/2017 Septicemia 06/16/2017 [...] on file Legal Sex Female 5:46 PM OIL WELL DRILLER Gender Identity Not on file Sexual Orientation [...] on file Medical Devices Implanted Type Area Operations Supervisor Device Identifier Shelf Expiration Date Model / [...] screening) Electronically signed by: Mya William M.D. Narrative 02/15/2023 4:37 PM CDT EXAMINATION: Lung cancer [...] screening) Electronically signed by: Mya William M.D. Silvio Schulte MD IMG CT PROCEDURES Final Result * COLONOSCOPY (02/23/2010 12:00 AM CDT) Anatomical Region Laterality Modality Other Narrative 02/23/2010 12:00 AM CDT Ordered by an unspecified provider. Procedure Note ProviderKarla MD - 02/23/2010 12:00 AM CDT PROCEDURE REPORT Patient: KARY CORONADO Account: [id number] Room No: : 1950 Patient Type: OPA Attend.: Jass Huang M.D. Admit Date: 02/23/2010 Dict.: Jass Huang M.D. Disch. Date: NAME OF PROCEDURE: Colonoscopy. HISTORY OF PRESENT ILLNESS This is a 59-year-old female who presents for screening colonoscopy. PHYSICAL EXAMINATION Well developed female. Lungs are clear. Cardiovascular exam isunremarkable. PROCEDURE: Colonoscopy was performed with the Cognio video endoscope. The patientwas premedicated by anesthesia. [...] Recently Relevant to Health Maintenance Insurance MEDICARE IDOR [facility] [place] [facility] [place] [facility] [place] Advance Directives For more information, please contact: [phone] * Full Code (Latest Code Status on File) Date Activated Date Inactivated Comments 05/17/2017 9:28 PM 05/21/2017 8:00 PM Care Teams Circulating Nurse Relationship Specialty Start Date End Date Keith Craft MD [address] [place] [address] [address] PCP - General 02/05/21 Luis F Frausto MD [address] [place] [address] [address] Consulting Physician Interventional Cardiology 09/13/21
--- OUTSIDE RECORDS SUMMARY | 2024-12-02 13:25 | XMS_ITS | Encounter Summary ---
Author Organization [facility] Address [address] [place] [address] Phone Care Team Providers Care Licensed Plumber Name Role Phone Quang Locke Unavailable [phone] Keith Craft MD Primary Care Provider [phone] Bri Rollins RN Unavailable Unavailable Silvio Schulte MD Unavailable Bri Rollins RN Unavailable Unavailable Werner Swift MD Unavailable Liz Capellan DO Primary Care Provider Yasmin Restrepo MD Unavailable Jose Do MD Unavailable Reason for Visit * Reason Comments Medication Refill Encounter Details Date Type Department Care Team (Late st Contact Info) Description 10/01/2022 Refill [facility] #2 [place] [address] Keith Craft MD #1 [place] [address] Medication Refill Social History Tobacco Use Types [...] RN - 10/01/2022 4:12 PM CDT PDMP [place] 09/03/22 - Diazepam 09/03/22 Medication failed the [...] Dept 09/10/22 Office Visit Keith Craft [facility] [place] 07/18/22 Office Visit Kerri Kauffman, MATERIALS PLANNING MANAGER, RETIREMENT MANAGER [facility] [place] 06/07/22 Office Visit Keith Craft [facility] [place] 03/02/22 Procedure Visit [facility] Office Visit Keith Craft MD [facility] [...] [facility] 07/18/22 Office Visit Kerri Kauffman, MATERIALS PLANNING MANAGER, RETIREMENT MANAGER [facility] 06/07/22 Office Visit Keith Craft MD [facility] [place] 03/02/22 Procedure [facility] 03[facility]22 Office Visit Keith Craft MD [facility] [place] 11/03/21 Office Visit Keith Craft MD [facility] 10/19/21 Office Visit Keith Craft MD [facility] [place] 10/05/21 Office Visit Keith Craft [facility] Showing recent visits within [...] MD [facility] 07/18/22 Office Visit Kerri Kauffman, MATERIALS PLANNING MANAGER, RETIREMENT MANAGER [facility] [place] 06/07/22 Office Visit Keith Craft, [facility] 03/02/22 Procedure Visit [facility] 03/02/22 Office Visit Keith Craft, MD [facility] 11/03/21 Office Visit Keith Craft, MD [facility] 10/19/21 Office Visit Keith Craft, MD [facility] 10/05/21 Office Visit Keith Craft, [facility] Showing recent visits within past 365 days and meeting all other requirements Future Appointments Date Type Provider Dept 12/10/22 Appointment Keith Craft, MD [facility] Showing [...] [facility] [place] 07/18/22 Office Visit Kerri Kauffman, MATERIALS PLANNING MANAGER, RETIREMENT MANAGER [facility] [place] 06/07/22 Office Visit Keith Craft MD [facility] [place] 03/02/22 Procedure Visit [facility] [place] 03/02/22 Office Visit Keith Craft MD [facility] 11/03/21 Office Visit Keith Craft MD [facility] [place] 10/19/21 Office Visit Keith Craft MD [facility] [place] 10/05/21 Office Visit Keith Craft MD [facility] Showing recent visits within past 365 days and meeting all other requirements Future Appointments Date Type Provider Dept 12/10/22 Appointment [facility] future appointments within next 90 days and meeting all other requirements documented in this encounter Plan of Treatment Upcoming Encounters Date Type Department Care Team (Late st Contact Info) Description 12/04/2024 12:45 PM CDT Office Visit [facility] - Family Medicine - [place] #2 [place] [address] Ana Vivar, MATERIALS PLANNING MANAGER, RETIREMENT MANAGER [address] [place] [address] 12/09/2024 11:15 AM CDT Office Visit [facility] - General Surgery - [place] #[address] [place] [address] Jose Do MD #[address] [place] [address] 01/04/2025 1:30 PM CDT Office Visit [facility] Medical [facility] - Pulmonology & Sleep Medicine - [place] #2 [facility] [place] [address] Werner Swift MD #2 [place] [address] 03/01/2025 1:30 PM CDT Office Visit [facility] - Endocrinology - [place] #2 [facility] [place] [address] Yasmin Restrepo MD #[address] [place] [address] 05/13/2025 1:20 PM PAINT BRUSH MAKER Office Visit [facility] - Family [facility] - [place] #[address] [place] [address] Liz Capellan, DO [address], [address]. [address] [place] [address] documented as of this encounter Goals Goal [...] Zones/Action plan education. I will notify my Bedspread Inspector if my symptoms fall in the [...] 19 04/18/2023 04/18/2023 04/28/2023 12:1 6 AM PAINT BRUSH MAKER COVID - 19 07/13/2023 07/13/2023 07/23/2023 12:1 6 AM PAINT BRUSH MAKER Respiratory Rule Out - RPA 03/17/2024 03/17/2024 1 3:36 PM CDT COVID - 19 04/27/2024 04/27/2024 04/27/2024 2:19 PM PAINT BRUSH MAKER Respiratory Rule-Out 07/24/2024 07/24/2024 025 2:29 PM PAINT BRUSH MAKER COVID - 19 07/24/2024 07/24/2024 07/24/2024 2:29 PM PAINT BRUSH MAKER COVID - 19 08/22/2024 08/22/2024 08/22/2024 11:4 6 PM CDT COVID - 19 09/03/2024 09/03/2024 09/03/2024 12:4 7 PM CDT Assessment Noted Time PHQ-9 Depression Total Score: 1 03/07/20 21 10:29 AM CDT documented as of this encounter Care Teams Licensed Plumber Relationship Specialty Start Date End Date Keith Craft MD PCP - General Family Medicine 01/14/19 12/26/23 Liz Capellan DO [address] [address] PCP - General Family Medicine 12/27/23 Quang Locke DO Gastroenterology 01/18/16 Bri Rollins RN [place] Bedspread Inspector 03/07/21 05/22/23 [place] [address] [address] 05/25/21 Bri Rollins RN [place] Nurse Bedspread Inspector 03/07/21 05/23/23 Werner Swift MD #2 [place] [address] Consulting Physician Pulmonary Disease 01/30/22 Yasmin Restrepo MD #[address] [address] Consulting Physician Endocrinology 07/20/24 Jose Do MD #[address] [address] Consulting Physician Colon and Rectal Surgery 10/12/24 documented as of this encounter
--- OUTSIDE RECORDS SUMMARY | 2024-12-02 13:25 | XMS_ITS | Encounter Summary ---
Author Organization [facility] Address [address] [place] [address] Phone Care Team Providers Care Technical Support Analyst Name Role Phone Quang Locke Unavailable [phone] Keith Craft MD Primary Care Provider [phone] Bri Rollins RN Unavailable Unavailable Silvio Schulte MD Unavailable [phone] Bri Rollins RN Unavailable Unavailable Werner Swift MD Unavailable Liz Capellan DO Primary Care Provider [phone] Yasmin Restrepo MD Unavailable Jose Do MD Unavailable Reason for Visit * Reason Comments Medication Refill Encounter Details Date Type Department Care Team (Late st Contact Info) Description 02/20/2021 [facility]ill [facility] [address] [place] [address] Keith Craft MD #1 [place] [address] Medication Refill Social History Tobacco [...] Provider Dept 04/14/21 Appointment Keith Craft MD [facility] [place] Showing future appointments within next 90 days and meeting all other requirements documented in this encounter Plan of Treatment Upcoming Encounters Date Type Department Care Team (Late st Contact Info) Description 12/04/2024 12:45 PM CDT Office Visit [facility] - Family Medicine - [place] #2 [place] [address] Ana Vivar, RIBBON SWEATBAND OPERATOR, MAT SEWER [address] [address] 12/09/2024 11:15 AM CDT Office Visit [facility] - General Surgery - [place] #2 [facility] [address] [place] [address] Jose Do MD #[address] [place] [address] 01/04/2025 1:30 PM CDT Office Visit [facility] - Pulmonology & Sleep Medicine - [place] #2 [facility] [place] [address] Werner Swift MD #2 [facility] [place] [place] [address] 03/01/2025 1:30 PM CDT Office Visit [facility] Medical [facility] - Endocrinology - [place] #2 [facility] [place] [address] Yasmin Restrepo MD #[address] [place] [address] 05/13/2025 1:20 PM ODD JOB LABORER Office Visit [facility] - Family [facility] - [place] [address] [place] [address] Liz Capellan, DO [address] [facility] [facility] [place], [place]. [address] [place] [address] documented as of this encounter Visit Diagnoses Diagnosis Pulmonary emphysema, unspecified emphysema type (HCC) documented in this encounter Additional Health Concerns Infection Onset Date Last Indicated Resolved Time COVID - 19 07/23/2021 07/23/2021 07/24/2021 6:31 AM ODD JOB LABORER COVID - 19 10/19/2021 10/19/2021 10/20/2021 7:45 AM CDT Respiratory Rule Out - RPA 10/19/2021 10/19/2021 0 10/20/2021 2:10 PM CDT Stenotrophomonas maltophilia Comment:Must have a follow up respiratory sample to remove isolation/infection flag. 10/20/2021 10/20/2021 COVID - 19 04/20/2022 04/20/2022 04/30/2022 12:1 8 AM ODD JOB LABORER COVID - 19 07/18/2022 07/18/2022 07/28/2022 12:1 6 AM ODD JOB LABORER COVID - 19 08/21/2022 08/21/2022 08/22/2022 8:31 AM CDT Respiratory Rule Out - RPA 08/21/2022 08/21/2022 0 08/22/2022 3:21 PM CDT COVID - 19 04/18/2023 04/18/2023 04/28/2023 12:1 6 AM ODD JOB LABORER COVID - 19 07/13/2023 07/13/2023 07/23/2023 12:1 6 AM ODD JOB LABORER Respiratory Rule Out - RPA 03/17/2024 03/17/2024 1 3:36 PM CDT COVID - 19 04/27/2024 04/27/2024 04/27/2024 2:19 PM ODD JOB LABORER Respiratory Rule-Out 07/24/2024 07/24/2024 025 2:29 PM ODD JOB LABORER COVID - 19 07/24/2024 07/24/2024 07/24/2024 2:29 PM ODD JOB LABORER COVID - 19 08/22/2024 08/22/2024 08/22/2024 11:4 6 PM CDT COVID - 19 09/03/2024 09/03/2024 09/03/2024 12:4 7 PM CDT Assessment Noted Time PHQ-9 Depression Total Score: 0 02/04/20 11:12 AM CDT documented as of this encounter Care Teams Technical Support Analyst Relationship Specialty Start Date End Date Keith Craft MD PCP - General Family Medicine 01/14/19 12/26/23 Liz Capellan DO [address] [address] PCP - General Family Medicine 12/27/23 Quang Locke DO Gastroenterology 01/18/16 Bri Rollins, RN [place] Plodding Machine Operator 03/07/21 05/22/23 [place] [id number] [address] 05/25/21 Bri Rollins, RN [place] Nurse Plodding Machine Operator 03/07/21 05/23/23 Werner Swift MD #2 [place] [phone] Consulting Physician Pulmonary Disease 01/30/22 Yasmin Restrepo MD #[address] [phone] Consulting Physician Endocrinology 07/20/24 Jose Do MD #2 [place] [address] Consulting Physician Colon and Rectal Surgery 10/12/24 documented as of this encounter
--- OUTSIDE RECORDS SUMMARY | 2024-12-02 13:25 | XMS_ITS | Encounter Summary ---
Author Organization [facility] Address [address] [place] [address] Phone Care Team Providers Care Communications Station Manager Name Role Phone Quang Locke Unavailable [phone] Keith Craft MD Primary Care Provider [phone] Bri Rollins RN Unavailable Unavailable Silvio Schulte MD Unavailable [phone] Bri Rollins RN Unavailable Unavailable Werner Swift MD Unavailable Liz Capellan DO Primary Care Provider [phone] Yasmin Restrepo MD Unavailable Jose Do MD Unavailable Reason for Visit * Reason Onset Date Comments Medication Refill Medication Refill 10/26/2020 Encounter Details Date Type Department Care Team (Late st Contact Info) Description 10/23/2020 Refill [facility] Medical Group - [facility] [place] [address] Keith Craft MD #1 [place] [address] Medication Refill; Medication Refill Social History Tobacco [...] [facility] - Family Medicine - [place] Craft, Keith M, MD 3 weeks ago Hypoglycemia [facility] Keith Lemus MD 4 months ago Mixed hyperlipidemia [facility] Keith Lemus MD 6 months ago Pneumonia of right upper lobe due to infectious organism [facility] Keith Lemus MD 8 months ago Acute non-recurrent maxillary sinusitis [facility] Keith Lemus MD Upcoming Appointments Future Appointments In [address] Mammography, [facility] In 2 months Keith Craft MD [facility], [facility] FASHION CONSULTANT SELLING - Recent and Past Visits Recent Visits [...] right upper lobe due to infectious organism [facility] Medical Group - Family Medicine - Keith Jenkins MD 3 weeks ago Hypoglycemia [facility] Family Medicine - Keith Jenkins MD 4 months ago Mixed hyperlipidemia [facility] Family Medicine Keith Lemus MD 6 months ago Pneumonia of right upper lobe due to infectious organism [facility] Medical [facility] Family Medicine Keith Lemus MD 8 months ago Acute non-recurrent maxillary sinusitis [facility] Medical [facility] Family Medicine - Keith Jenkins MD Upcoming Appointments Future Appointments In [address] Mammography, [facility] In 2 months Keith Craft MD [facility] Family [facility] FASHION CONSULTANT SELLING - Recent and Past Visits Recent Visits Date Type Provider Dept 10/12/20 Office Visit Ketih Craft MD [facility] 10/04/20 Office Visit Keith Craft MD [facility] 06/07/20 Office Visit Keith Craft MD [facility] 04/25/20 Office Visit Keith Craft MD [...] 12:45 PM CDT Office Visit [facility] Medical [facility] - Family Medicine - [place] #2 [place] [address] Ana Vivar, HEATING PLANT SUPERINTENDENT, OUTDOOR FITNESS TRAINER 2 [facility] [address] [place] [address] 12/09/2024 11:15 AM CDT Office Visit [facility] Medical [facility] - General Surgery - [place] #2 [facility] [address] [place] [address] Jose Do MD #2 [facility] [address] [place] [address] 01/04/2025 1:30 PM CDT Office Visit [facility] Medical [facility] - Pulmonology & Sleep Medicine - [place] #2 [facility] [place] [address] Werner Swift MD #2 [place] [address] 03/01/2025 1:30 PM CDT Office Visit [facility] - Endocrinology - [place] #2 [place] [address] Yasmin Restrepo MD #2 [facility] [address] [place] [address] 05/13/2025 1:20 PM PHARMACY INTAKE TECHNICIAN Office Visit [facility] - Family Medicine - [place] #2 [address] [facility] [address] Liz Capellan, DO 2 [facility]. [address] [place], [place] [address] documented as of this encounter Visit Diagnoses [...] - 19 07/23/2021 07/23/2021 07/24/2021 6:31 AM PHARMACY INTAKE TECHNICIAN COVID - 19 10/19/2021 10/19/2021 10/20/2021 7:45 AM CDT Respiratory Rule Out - RPA 10/19/2021 10/19/2021 0 10/20/2021 2:10 PM CDT Stenotrophomonas maltophilia Comment:Must have a follow up respiratory sample to remove isolation/infection flag. 10/20/2021 10/20/2021 COVID - 19 04/20/2022 04/20/2022 04/30/2022 12:1 8 AM PHARMACY INTAKE TECHNICIAN COVID - 19 07/18/2022 07/18/2022 07/28/2022 12:1 6 AM PHARMACY INTAKE TECHNICIAN COVID - 19 08/21/2022 08/21/2022 08/22/2022 8:31 AM CDT Respiratory Rule Out - RPA 08/21/2022 08/21/2022 0 08/22/2022 3:21 PM CDT COVID - 19 04/18/2023 04/18/2023 04/28/2023 12:1 6 AM PHARMACY INTAKE TECHNICIAN COVID - 19 07/13/2023 07/13/2023 07/23/2023 12:1 6 AM PHARMACY INTAKE TECHNICIAN Respiratory Rule Out - RPA 03/17/2024 03/17/2024 1 3:36 PM CDT COVID - 19 04/27/2024 04/27/2024 04/27/2024 2:19 PM PHARMACY INTAKE TECHNICIAN Respiratory Rule-Out 07/24/2024 07/24/2024 025 2:29 PM PHARMACY INTAKE TECHNICIAN COVID - 19 07/24/2024 07/24/2024 07/24/2024 2:29 PM PHARMACY INTAKE TECHNICIAN COVID - 19 08/22/2024 08/22/2024 08/22/2024 11:4 6 PM CDT COVID - 19 09/03/2024 09/03/2024 09/03/2024 12:4 7 PM CDT Assessment Noted Time PHQ-9 Depression Total Score: 2 06/07/19 21 2:34 PM PHARMACY INTAKE TECHNICIAN documented as of this encounter Care Teams Communications Station Manager Relationship Specialty Start Date End Date Keith Craft MD PCP - General Family Medicine 01/14/19 12/26/23 Liz Capellan DO [address] [address] PCP - General Family Medicine 12/27/23 Quang Locke DO Gastroenterology 01/18/16 Bri Rollins RN [place] Procedure Manager 03/07/21 05/22/23 [place] [id number] [address] 05/25/21 Bri Rollins, RN [place] Nurse Procedure Manager 03/07/21 05/23/23 Werner Swift MD #2 [place] [address] Consulting Physician Pulmonary Disease 01/30/22 Yasmin Restrepo MD #[address] [address] Consulting Physician Endocrinology 07/20/24 Jose Do MD #[address] [address] Consulting Physician Colon and Rectal Surgery 10/12/24 documented as of this encounter
--- OUTSIDE RECORDS SUMMARY | 2024-12-02 13:25 | XMS_ITS | Encounter Summary ---
Author Organization [facility] Address [address] [place] [address] Phone Care Team Providers Care Bioanalyst Name Role Phone Quang Locke Unavailable [phone] Keith Craft MD Primary Care Provider [phone] Bri Rollins RN Unavailable Unavailable Silvio Schulte MD Unavailable [phone] Bri Rollins RN Unavailable Unavailable Werner Swift MD Unavailable Liz Capellan DO Primary Care Provider [phone] Yasmin Restrepo MD Unavailable Jose Do MD Unavailable Reason for Visit * Reason Comments Medication Refill Encounter Details Date Type Department Care Team (Late st Contact Info) Description 11/01/2020 Refill [facility] - [facility] Medicine [facility] #2 [place] [address] Keith Craft MD #1 [place] [address] Medication Refill Social History Tobacco Use Types [...] organism [facility] - Family Medicine Keith Lemus MD 4 weeks ago Hypoglycemia [facility] - Family Medicine - Keith Jenkins MD 4 months ago Mixed hyperlipidemia [facility] - Family Medicine Keith Lemus MD 6 months ago Pneumonia of right upper lobe due to infectious organism [facility] - Family Medicine Keith Lemus MD 9 months ago Acute non-recurrent maxillary sinusitis [facility] - Family Medicine Keith Lemus MD Upcoming Appointments Future Appointments Today [id number], [facility] In 2 months Keith Craft MD [facility] Family [facility] [place], [facility] DOCTOR OF NURSING PRACTICE - Recent and Past Visits Recent Visits [...] Description 12/04/2024 12:45 PM CDT Office Visit [facility] Family Medicine - [place] #2 [place] [address] Ana Vivar, SAXOPHONE TEACHER, CERAMIC TILE INSTALLATION HELPER 2 [facility] [address] [place] [address] 12/09/2024 11:15 AM CDT Office Visit [facility] General Surgery - [place] #2 [facility] [address] [place] [address] Jose Do MD #2 [facility] [address] [place] [address] 01/04/2025 1:30 PM CDT [facility] - Pulmonology & Sleep Medicine - [place] #2 [place] [address] Werner Swift MD #2 [place] [address] 03/01/2025 1:30 PM CDT Office Visit [facility] - Endocrinology - [place] #2 [place] [address] aYsmin Restrepo MD #[address] [address] 05/13/2025 1:20 PM IT NETWORK ARCHITECT Office Visit [facility] Family Medicine - [place] #2 [place] [address] Liz Capellan, DO [address] [address] documented as of this encounter Visit Diagnoses Diagnosis Anxiety and depression Dysthymic disorder documented in this encounter Additional Health Concerns Infection Onset Date Last Indicated Resolved Time COVID - 19 01/25/2021 01/25/2021 01/31/2021 8:10 AM CDT Respiratory Rule Out - RPA 01/30/2021 01/30/2021 0 02/01/2021 12:45 AM CDT COVID - 19 07/23/2021 07/23/2021 07/24/2021 6:31 AM IT NETWORK ARCHITECT COVID - 19 10/19/2021 10/19/2021 10/20/2021 7:45 AM CDT Respiratory Rule Out - RPA 10/19/2021 10/19/2021 0 10/20/2021 2:10 PM CDT Stenotrophomonas maltophilia Comment:Must have a follow up respiratory sample to remove isolation/infection flag. 10/20/2021 10/20/2021 COVID - 19 04/20/2022 04/20/2022 04/30/2022 12:1 8 AM IT NETWORK ARCHITECT COVID - 19 07/18/2022 07/18/2022 07/28/2022 12:1 6 AM IT NETWORK ARCHITECT COVID - 19 08/21/2022 08/21/2022 08/22/2022 8:31 AM CDT Respiratory Rule Out - RPA 08/21/2022 08/21/2022 0 08/22/2022 3:21 PM CDT COVID - 19 04/18/2023 04/18/2023 04/28/2023 12:1 6 AM IT NETWORK ARCHITECT COVID - 19 07/13/2023 07/13/2023 07/23/2023 12:1 6 AM IT NETWORK ARCHITECT Respiratory Rule Out - RPA 03/17/2024 03/17/2024 1 3:36 PM CDT COVID - 19 04/27/2024 04/27/2024 04/27/2024 2:19 PM IT NETWORK ARCHITECT Respiratory Rule-Out 07/24/2024 07/24/2024 025 2:29 PM IT NETWORK ARCHITECT COVID - 19 07/24/2024 07/24/2024 07/24/2024 2:29 PM IT NETWORK ARCHITECT COVID - 19 08/22/2024 08/22/2024 08/22/2024 11:4 6 PM CDT COVID - 19 09/03/2024 09/03/2024 09/03/2024 12:4 7 PM CDT Assessment Noted Time PHQ-9 Depression Total Score: 2 06/07/19 21 2:34 PM IT NETWORK ARCHITECT documented as of this encounter Care Teams Bioanalyst Relationship Specialty Start Date End Date Keith Craft MD PCP - General Family Medicine 01/14/19 12/26/23 Liz Capellan DO 2 [email or web address] [address] [address] PCP - General Family Medicine 12/27/23 Quang Locke DO Gastroenterology 01/18/16 Bri Rollins, RN [place] Pulmonology Technician 03/07/21 05/22/23 [place] [id number] [address] 05/25/21 Bri Rollins RN [place] Nurse Pulmonology Technician 03/07/21 05/23/23 Werner Swift MD #2 [place] [address] Consulting Physician Pulmonary Disease 01/30/22 Yasmin Restrepo MD #[address] [address] Consulting Physician Endocrinology 07/20/24 Jose Do MD #[address] [phone] Consulting Physician Colon and Rectal Surgery 10/12/24 documented as of this encounter
--- OUTSIDE RECORDS SUMMARY | 2024-12-02 13:25 | XMS_ITS | Encounter Summary ---
Author Organization [facility] Address [address] [place] [address] Phone Care Team Providers Care Wringer And Setter Name Role Phone Quang Locke Unavailable [phone] Keith Craft MD Primary Care Provider [phone] Bri Rollins RN Unavailable Unavailable Silvio Schulte MD Unavailable [phone] Bri Rollins RN Unavailable Unavailable Werner Swift MD Unavailable Liz Capellan DO Primary Care Provider [phone] Yasmin Restrepo MD Unavailable Jose Do MD Unavailable Reason for Visit * Reason Comments Medication Refill Encounter Details Date Type Department Care Team (Late st Contact Info) Description 01/24/2023 Refill [facility] Medical Group - Family Medicine [facility] #2 [place] [address] Keith Craft MD #1 [place] [address] Medication Refill Social History Tobacco Use Types [...] Pending Prescriptions Disp Refills ergocalciferol (VITAMIN D) 65579 UNIT Capsule [Pharmacy Med Name: VITAMIN D [id number] CAPSULE] 12 Capsule 0 Sig: TAKE ONE CAPSULE BY MOUTH ONE TIME WEEKLY Vitamin Supplements (Adult) Protocol Failed - 01/24/2023 3:49 PM Failed - Active on medication list Failed - Vitamin D dose not greater than 1.25mg Passed - Visit with relevant provider in past 12 months or upcoming 90 days Recent Visits Date Type Provider Dept 12/10/22 Office Visit Keith Craft MD [facility] [place] 09/10/22 Office Visit Keith Craft MD [facility] [place] 07/18/22 Office Visit Kerri Kauffman, ENGLISH FACULTY MEMBER, SUPERVISOR SALVAGE [facility] 06/07/22 Office Visit Keith Craft MD [facility] 03/02/22 Procedure Visit [facility] 03/02/22 Office Visit Keith Craft MD [facility] Showing recent visits within past 365 days and meeting all other requirements Future Appointments Date Type Provider Dept 04/12/23 Appointment Keith Craft MD [facility] [place] 07/18/22 Office Visit Kerri Kauffman APRN, SUPERVISOR SALVAGE [facility] 06/07/22 Office Visit Keith Craft MD [facility] [place] 03/02/22 Procedure Visit [facility] [place] 03/02/22 Office Visit Keith Craft MD [facility] Showing recent visits within [...] Description 12/04/2024 12:45 PM CDT Office Visit [facility] Medical Group - Family Medicine - [place] #2 [place] [address] Ana Vivar, REBECCA, SUPERVISOR SALVAGE 2 [facility] [place] [address] [place] [address] 12/09/2024 11:15 AM CDT Office Visit [facility] General Surgery - [place] #[address] [place] [address] Jose Do MD #[address] [place] [address] 01/04/2025 1:30 PM CDT Office Visit [facility] - Pulmonology & Sleep Medicine - [place] #2 [facility] [place] [address] Werner Swift MD #2 [place] [address] 03/01/2025 1:30 PM CDT Office Visit [facility] - Endocrinology - [place] #2 [facility] [place] [address] Yasmin Restrepo MD #[address] [place] [address] 05/13/2025 1:20 PM PERINATOLOGY PHYSICIAN Office Visit [facility] Family Medicine - [place] #2 [place] [address] Liz Capellan, DO [address] [address] documented as of this encounter Goals Goal [...] Zones/Action plan education. I will notify my Care Administrative Tech if my symptoms fall in the [...] 19 04/18/2023 04/18/2023 04/28/2023 12:1 6 AM PERINATOLOGY PHYSICIAN COVID - 19 07/13/2023 07/13/2023 07/23/2023 12:1 6 AM PERINATOLOGY PHYSICIAN Respiratory Rule Out - RPA 03/17/2024 03/17/2024 1 3:36 PM CDT COVID - 19 04/27/2024 04/27/2024 04/27/2024 2:19 PM PERINATOLOGY PHYSICIAN Respiratory Rule-Out 07/24/2024 07/24/2024 025 2:29 PM PERINATOLOGY PHYSICIAN COVID - 19 07/24/2024 07/24/2024 07/24/2024 2:29 PM PERINATOLOGY PHYSICIAN COVID - 19 08/22/2024 08/22/2024 08/22/2024 11:4 6 PM CDT COVID - 19 09/03/2024 09/03/2024 09/03/2024 12:4 7 PM CDT Assessment Noted Time PHQ-9 Depression Total Score: 1 03/07/20 21 10:29 AM CDT documented as of this encounter Care Teams Wringer And Setter Relationship Specialty Start Date End Date Keith Craft MD PCP - General Family Medicine 01/14/19 12/26/23 Liz Capellan DO 2 [facility] [address] [place] [address] PCP - General Family Medicine 12/27/23 Quang Locke DO Gastroenterology 01/18/16 Bri Rollins, RN [place] Care Administrative Tech 03/07/21 05/22/23 [place] [id number] [address] 05/25/21 Bri Rollins, RN [place] Nurse Care Administrative Tech 03/07/21 05/23/23 Werner Swift MD #2 [place] [address] Consulting Physician Pulmonary Disease 01/30/22 Yasmin Restrepo MD #[address] [address] Consulting Physician Endocrinology 07/20/24 Jose Do MD #[address] [address] Consulting Physician Colon and Rectal Surgery 10/12/24 documented as of this encounter
--- OUTSIDE RECORDS SUMMARY | 2024-12-02 13:25 | XMS_ITS | Encounter Summary ---
Author Organization [facility] Address [address] [place] [address] Phone Care Team Providers Care Results Engineer Name Role Phone Quang Locke Unavailable [phone] Keith Craft MD Primary Care Provider [phone] Bri Rollins RN Unavailable Unavailable Silvio Schulte MD Unavailable [phone] Bri Rollins RN Unavailable Unavailable Werner Swift MD Unavailable Liz Capellan DO Primary Care Provider Yasmin Restrepo MD Unavailable Jose Do MD Unavailable Reason for Visit * Reason Comments Medication Refill Encounter Details Date Type Department Care Team (Late st Contact Info) Description 04/16/2021 Refill [facility] Medical [facility] - Family Medicine [facility] [address] [place] [address] Keith Craft MD #1 [place] [address] Medication Refill Social History Tobacco Use Types [...] COVID-19? No / Unsure 04/18/2021 1:18 PM MANAGER FASHION documented as of this encounter Miscellaneous Notes * Telephone Encounter - Gloria Cornejo RN - 04/17/2021 11:34 AM CST 90 days supply filled at [facility] 03/29/21 GER FASHION documented in this encounter Plan of Treatment Upcoming Encounters Date Type Department Care Team (Late st Contact Info) Description 12/04/2024 12:45 PM CDT Office Visit [facility] Medical [facility] - Family Medicine - [place] [address]2 [place] [address] Ana Vivar, BUTTONHOLE FACER, APPLICATION ENGINEER 2 [facility]. [address] [place] [address] 12/09/2024 11:15 AM CDT Office Visit [facility] Medical [facility] - General Surgery - [place] #2 [facility] [address] [place] [address] Jose Do MD #2 [facility] [address] [place] [address] 01/04/2025 1:30 PM CDT Office Visit [facility] - Pulmonology & Sleep Medicine - [place] [address] [place] [address] Werner Swift MD #2 [place] [address] 03/01/2025 1:30 PM CDT Office Visit [facility] - Endocrinology - [place] #2 [facility] [place] [address] Yasmin Restrepo MD #[address] [address] 05/13/2025 1:20 PM MANAGER FASHION Office Visit [facility] Family Medicine - [place] [address] [place] [address] Liz Capellan, DO 2 [facility]. [address] [place] [address] documented as of this encounter Goals Goal [...] 19 07/23/2021 07/23/2021 07/24/2021 6:31 AM MANAGER FASHION COVID - 19 10/19/2021 10/19/2021 10/20/2021 7:45 AM CDT Respiratory Rule Out - RPA 10/19/2021 10/19/2021 0 10/20/2021 2:10 PM CDT Stenotrophomonas maltophilia Comment:Must have a follow up respiratory sample to remove isolation/infection flag. 10/20/2021 10/20/2021 COVID - 19 04/20/2022 04/20/2022 04/30/2022 12:1 8 AM MANAGER FASHION COVID - 19 07/18/2022 07/18/2022 07/28/2022 12:1 6 AM MANAGER FASHION COVID - 19 08/21/2022 08/21/2022 08/22/2022 8:31 AM CDT Respiratory Rule Out - RPA 08/21/2022 08/21/2022 0 08/22/2022 3:21 PM CDT COVID - 19 04/18/2023 04/18/2023 04/28/2023 12:1 6 AM MANAGER FASHION COVID - 19 07/13/2023 07/13/2023 07/23/2023 12:1 6 AM MANAGER FASHION Respiratory Rule Out - RPA 03/17/2024 03/17/2024 1 3:36 PM CDT COVID - 19 04/27/2024 04/27/2024 04/27/2024 2:19 PM MANAGER FASHION Respiratory Rule-Out 07/24/2024 07/24/202428/2 025 2:29 PM MANAGER FASHION COVID - 19 07/24/2024 07/24/2024 07/24/2024 2:29 PM MANAGER FASHION COVID - 19 08/22/2024 08/22/2024 08/22/2024 11:4 6 PM CDT COVID - 19 09/03/2024 09/03/2024 09/03/2024 12:4 7 PM CDT Assessment Noted Time PHQ-9 Depression Total Score: 1 03/07/20 21 10:29 AM CDT documented as of this encounter Care Teams Results Engineer Relationship Specialty Start Date End Date Keith Craft MD PCP - General Family Medicine 01/14/19 12/26/23 Liz Capellan DO [address] [address] PCP - General Family Medicine 12/27/23 Quang Locke DO Gastroenterology 01/18/16 Bri Rollins, RN [place] Disintegrator Feeder 03/07/21 05/22/23 [place] [id number] [address] 05/25/21 Bri Rollins, RN [place] Nurse Disintegrator Feeder 03/07/21 05/23/23 Werner Swift MD #2 [place] [address] Consulting Physician Pulmonary Disease 01/30/22 Yasmin Restrepo MD #[address] [address] Consulting Physician Endocrinology 07/20/24 Jose Do MD #2 [place] [address] Consulting Physician Colon and Rectal Surgery 10/12/24 documented as of this encounter
--- OUTSIDE RECORDS SUMMARY | 2024-12-02 13:25 | XMS_ITS | Encounter Summary ---
Author Organization [facility] Address [address] [place] [address] Phone Care Team Providers Care Compliance Associate Name Role Phone Quang Locke Unavailable [phone] Keith Craft MD Primary Care Provider [phone] Bri Rollins RN Unavailable Unavailable Silvio Schulte MD Unavailable [phone] Bri Rollins RN Unavailable Unavailable Werner Swift MD Unavailable Liz Capellan DO Primary Care Provider [phone] Yasmin Restrepo MD Unavailable Jose Do MD Unavailable Reason for Visit * Reason Comments Medication Refill Encounter Details Date Type Department Care Team (Late st Contact Info) Description 10/30/2022 Refill [facility] Medical [facility] - Family Medicine [facility] #2 [place] [address] Keith Craft MD [address] [place] [address] Medication Refill Social History Tobacco Use Types [...] Dept 09/10/22 Office Visit Keith [facility] 07/18/22 Office Visit Kerri Kauffman, PHLEBOTOMY SPECIALIST, FOOD STAND MANAGER [facility] 06/07/22 [facility] 03/02/22 Office Visit CraftKeith banda MD [facility] 11/03/21 Office Visit Keith [...] [facility] 07/18/22 Office Visit Ker[facility] 06/07/22 Office Visit Keith Craft MD [facility] 03/02/22 Procedure [facility] 03/02/22 Office Visit Keith Craft MD [facility] 11/03/21 Office [facility] Showing recent visits within past 365 [...] [facility] 07/18/22 Office Visit Kerri Kauffman [facility], [facility] 06/07/22 Office Visit Keith Craft MD [facility] 03/02/22 Procedure Visit [facility] 03/02/22 [facility] [place] 11/03/21 Office Visit Keith Craft MD [facility] Showing recent visits within past 365 days and meeting all other requirements Future Appointments Date Type Provider Dept 12/10/22 Appointment Keith Craft MD [facility] Showing future appointments within next 90 days and meeting all other requirements documented in this encounter Plan of Treatment Upcoming Encounters Date Type Department Care Team (Late st Contact Info) Description 12/04/2024 12:45 PM CDT Office Visit [facility] Medical [facility] - Family Medicine - [place] #2 [facility] [place] [address] Ana Vivar, PHLEBOTOMY SPECIALIST, FOOD STAND MANAGER 2 [facility] [address] [place] [address] 12/09/2024 11:15 AM CDT Office Visit [facility] Medical [facility] - General Surgery - [place] #2 [facility] [address] [place] [address] Jose Do MD #[address] [address] 01/04/2025 1:30 PM CDT Office Visit [facility] Medical [facility] - Pulmonology & Sleep Medicine - [place] #2 [place] [address] Werner Swift MD #2 [place] [address] 03/01/2025 1:30 PM CDT Office Visit [facility] Medical [facility] - Endocrinology - [place] #2 [place] [address] Yasmin Restrepo MD #2 [facility] [address] [place] [address] 05/13/2025 1:20 PM TABLE HAND Office Visit [facility] Medical Group - Family [facility] - [place] #[address] [place] [address] Liz Capellan, DO [address] [facility]. [address] [place] [address] documented as of this encounter Goals Goal [...] Zones/Action plan education. I will notify my Power Crane Operator if my symptoms fall in the [...] 19 04/18/2023 04/18/2023 04/28/2023 12:1 6 AM TABLE HAND COVID - 19 07/13/2023 07/13/2023 07/23/2023 12:1 6 AM TABLE HAND Respiratory Rule Out - RPA 03/17/2024 03/17/2024 1 3:36 PM CDT COVID - 19 04/27/2024 04/27/2024 04/27/2024 2:19 PM TABLE HAND Respiratory Rule-Out 07/24/2024 07/24/2024 025 2:29 PM TABLE HAND COVID - 19 07/24/2024 07/24/2024 07/24/2024 2:29 PM TABLE HAND COVID - 19 08/22/2024 08/22/2024 08/22/2024 11:4 6 PM CDT COVID - 19 09/03/2024 09/03/2024 09/03/2024 12:4 7 PM CDT Assessment Noted Time PHQ-9 Depression Total Score: 1 03/07/20 21 10:29 AM CDT documented as of this encounter Care Teams Compliance Associate Relationship Specialty Start Date End Date Keith Craft MD PCP - General Family Medicine 01/14/19 12/26/23 Liz Capellan DO [address] [address] PCP - General Family Medicine 12/27/23 Quang Locke DO Gastroenterology 01/18/16 Bri Rollins RN [place] Power Crane Operator 03/07/21 05/22/23 [place] [id number] [address] 05/25/21 Bri Rollins, [place] Nurse Power Crane Operator 03/07/21 05/23/23 Werner Swift MD #[address] [place] [address] Consulting Physician Pulmonary Disease 01/30/22 Yasmin Restrepo MD #[address] [address] Consulting Physician Endocrinology 07/20/24 Jose Do MD #[address] [address] Consulting Physician Colon and Rectal Surgery 10/12/24 documented as of this encounter
--- OUTSIDE RECORDS SUMMARY | 2024-12-02 13:25 | XMS_ITS | Encounter Summary ---
Author Organization [facility] Address [address] [place] [address] Phone Care Team Providers Care Wafer Fabricator Name Role Phone Quang Locke Unavailable Keith Craft MD Primary Care Provider [phone] Bri Rollins RN Unavailable Unavailable Silvio Schulte MD Unavailable [phone] Bri Rollins RN Unavailable Unavailable Werner Swift MD Unavailable Liz Capellan DO Primary Care Provider [phone] Yasmin Restrepo MD Unavailable Jose Do MD Unavailable Reason for Visit * Reason Comments Medication Refill Encounter Details Date Type Department Care Team (Late st Contact Info) Description 02/12/2021 Refill [facility] Medical [facility] - Family Medicine [facility] #2 [place] [address] Keith Craft MD #[address] [place] [address] Medication Refill Social History Tobacco Use Types [...] 12/04/2024 12:45 PM CDT Office Visit [facility] Medical [facility] - Family Medicine [facility] #2 [place] [address] Ana Vivar, PRODUCTION QUALITY MANAGER, SALES AND SERVICE CHANGE LEADER 2 [facility] [address] [place] [address] 12/09/2024 11:15 AM CDT Office Visit [facility] Medical [facility] - General Surgery - [place] #2 [facility] [address] [place] [address] Jose Do MD #[address] [address] 01/04/2025 1:30 PM CDT Office Visit [facility] Medical [facility] - Pulmonology & Sleep Medicine [facility] #2 [place] [address] Werner Swift MD #2 [place] [address] 03/01/2025 1:30 PM CDT Office Visit [facility] Medical [facility] - Endocrinology - [place] #2 [place] [address] Yasmin eRstrepo MD #[address] [address] 05/13/2025 1:20 PM EQUIPMENT APPLICATION SPECIALIST [facility] [place] #[address] [place] [address] Liz Capellan, DO 2 [facility] [address] [place] [address] documented as of this encounter Visit Diagnoses Diagnosis Anxiety and depression Dysthymic disorder documented in this encounter Additional Health Concerns Infection Onset Date Last Indicated Resolved Time COVID - 19 07/23/2021 07/23/2021 07/24/2021 6:31 AM EQUIPMENT APPLICATION SPECIALIST COVID - 19 10/19/2021 10/19/2021 10/20/2021 7:45 AM CDT Respiratory Rule Out - RPA 10/19/2021 10/19/2021 0 10/20/2021 2:10 PM CDT Stenotrophomonas maltophilia Comment:Must have a follow up respiratory sample to remove isolation/infection flag. 10/20/2021 10/20/2021 COVID - 19 04/20/2022 04/20/2022 04/30/2022 12:1 8 AM EQUIPMENT APPLICATION SPECIALIST COVID - 19 07/18/2022 07/18/2022 07/28/2022 12:1 6 AM EQUIPMENT APPLICATION SPECIALIST COVID - 19 08/21/2022 08/21/2022 08/22/2022 8:31 AM CDT Respiratory Rule Out - RPA 08/21/2022 08/21/2022 0 08/22/2022 3:21 PM CDT COVID - 19 04/18/2023 04/18/2023 04/28/2023 12:1 6 AM EQUIPMENT APPLICATION SPECIALIST COVID - 19 07/13/2023 07/13/2023 07/23/2023 12:1 6 AM EQUIPMENT APPLICATION SPECIALIST Respiratory Rule Out - RPA 03/17/2024 03/17/2024 1 3:36 PM CDT COVID - 19 04/27/2024 04/27/2024 04/27/2024 2:19 PM EQUIPMENT APPLICATION SPECIALIST Respiratory Rule-Out 07/24/2024 07/24/2024 025 2:29 PM EQUIPMENT APPLICATION SPECIALIST COVID - 19 07/24/2024 07/24/2024 07/24/2024 2:29 PM EQUIPMENT APPLICATION SPECIALIST COVID - 19 08/22/2024 08/22/2024 08/22/2024 11:4 6 PM CDT COVID - 19 09/03/2024 09/03/2024 09/03/2024 12:4 7 PM CDT Assessment Noted Time PHQ-9 Depression Total Score: 0 02/04/20 11:12 AM CDT documented as of this encounter Care Teams Wafer Fabricator Relationship Specialty Start Date End Date Keith Craft MD PCP - General Family Medicine 01/14/19 12/26/23 Liz Capellan DO [address] [address] PCP - General Family Medicine 12/27/23 Quang Locke DO Gastroenterology 01/18/16 Bri Rollins RN [place] Oil Field Rig Builder 03/07/21 05/22/23 [place] [id number] [address] 05/25/21 Bri Rollins RN [place] Nurse Oil Field Rig Builder 03/07/21 05/23/23 Werner Swift MD #2 [place] [address] Consulting Physician Pulmonary Disease 01/30/22 Yasmin Restrepo MD #[address] [address] Consulting Physician Endocrinology 07/20/24 Jose Do MD #[address] [address] Consulting Physician Colon and Rectal Surgery 10/12/24 documented as of this encounter
--- OUTSIDE RECORDS SUMMARY | 2024-12-02 13:25 | XMS_ITS | Clinical Summary ---
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 2 019 Active Corlanor 5 MG Tablet Take 5 mg by mouth 2 times daily. 022 Active carvedilol (COREG) 3.125 MG Tablet Take 3.125 mg by mouth 2 times daily. 022 Active ferrous sulfate 325 (65 Fe) MG Tablet Take 325 mg by mouth daily. Active Cyanocobalamin (Vitamin B-12 CR) 1000 MCG Tablet Controlled Release Take 1,000 mcg by mouth daily. Active insulin pen needle (NovoFine Autocover Pen Needle) 30G X 8 MM Misc USE WITH INSULIN THREE (3) TIMES DAILY 300 Each 1 024 Active naloxone HCl (Narcan) 4 MG/0.1ML Liquid 1 [place] by Nasal route as needed for Opioid Reversal. Administer in one nostril for symptoms of overdose (severe sleepiness, breathing problems, not responsive). Call 911. May repeat 1 spray in alternate nostril in 2-3 minutes if needed. 1 Each 024 Active Vascepa 1 g Capsule Take 1 Capsule by mouth in the morning and at bedtime. 024 Active lansoprazole (PREVACID) 30 MG CAPSULE DELAYED RELEASEIndication s:Gastroesophagea l reflux disease without esophagitis TAKE ONE (1) CAPSULE BY MOUTH DAILY. 90 Capsule 3 024 Active OXYGEN CONCENTRATOR 2 L/min by Nasal route if needed (shortness of breath). Active Lidocaine (HM Lidocaine Patch) 4 % Patch 1 Patch by Transdermal route every 24 hours. 30 Patch 11 024 Active Ascorbic Acid (Vitamin C) 1000 MG Tablet Take 1 Tablet by mouth daily. Active polyethylene glycol (GLYCOLAX, MIRALAX) 17 g PackIndications:C onstipation Take 1 Packet by mouth 2 times daily as needed for Constipation - 1st line. Dissolve in 4-8 oz of liquid. Indications: Constipation 90 Packet 024 Active senna (SENOKOT) 8.6 MG Tablet Take 1 Tablet by mouth daily. 30 Tablet 024 Active guaiFENesin (Mucinex) 600 MG TABLET SR 12 HR Take 1 Tablet by mouth 2 times daily. 180 Tablet 3 024 Active valACYclovir (VALTREX) 500 MG Tablet TAKE ONE TABLET BY MOUTH EVERY DAY AT NIGHT 90 Tablet 2 024 Active albuterol 108 (90 Base) MCG/ACT Aerosol SolutionIndicatio ns:Pulmonary emphysema, unspecified emphysema type (HCC) USE TWO (2) PUFF(S) BY INHALATION ROUTE EVERY FOUR (4) HOURS NEEDED WHEEZING 18 g 1 025 Active levothyroxine (SYNTHROID) 50 MCG TabletIndications :Acquired hypothyroidism TAKE ONE TABLET BY MOUTH DAILY 90 Tablet 2 025 Active theophylline (THEOCHRON) 400 MG TABLET SR 24 HRIndications:Pul monary emphysema, unspecified emphysema type (HCC) TAKE ONE (1) TABLET BY MOUTH DAILY. 90 Tablet 3 025 Active Fluticasone-Umecl idin-Vilant (Trelegy Ellipta) 100-62.5-25 MCG/ACT AEROSOL POWDER, BREATH ACTIVATED take 1 Puff by inhalation daily. 60 Each 025 Active naloxegol (MOVANTIK) 25 MG Tablet Take 25 mg by mouth every morning (before breakfast). Activ e famotidine (PEPCID) 20 MG TabletIndications :Gastroesophageal Reflux Disease Take 1 Tablet by mouth every evening. Indications: Gastroesophageal Reflux Disease 90 Tablet 025 Active risedronate (ACTONEL) 35 MG Tablet 025 Active insulin glargine (Lantus SoloStar) 100 UNIT/ML Solution Pen-injector 15 Units by Subcutaneous route nightly. 15 mL 025 Active Dulaglutide (Trulicity) 1.5 MG/0.5ML Solution Auto-injector 1.5 mg by Subcutaneous route once a week. 6 mL 025 Active roflumilast (DALIRESP) 500 MCG Tablet TAKE ONE (1) TABLET BY MOUTH DAILY. 90 Tablet 025 Active SUMAtriptan (IMITREX) 100 MG Tablet Take 0.5 Tablets by mouth once as needed for Migraine for up to 72 doses. Use as directed. May repeat dose in 2 hours if headache recurs. 9 Tablet 025 Active DULoxetine (CYMBALTA) [address] Particles Take 1 Capsule by mouth daily. 90 Capsule 025 Active Insulin Lispro, 1 Unit Dial, (HumaLOG KwikPen) 100 UNIT/ML Solution Pen-injector Correctional factor insulin of 1:50 if >150 mg/dL, up to 30 units per day 30 mL 025 Active ondansetron (Zofran) 4 MG TabletIndications :Gastroparesis Take 1 Tablet by mouth every 8 hours as needed for Nausea - 1st line. 30 Tablet 1 025 Active METAMUCIL FIBER PO Take 1 Capful by mouth daily. Active fluticasone (FLONASE) 50 MCG/ACT Suspension TWO (2) SPRAYS BY NASAL ROUTE DAILY. 16 g 5 025 Active gabapentin (NEURONTIN) 800 MG Tablet Take 1 Tablet by mouth 3 times daily. 90 Tablet 3 025 Active escitalopram (LEXAPRO) 20 MG Tablet Take 1 Tablet by mouth daily. 90 Tablet 1 025 Active oxyCODONE-Acetami nophen (PERCOCET) 10-325 MG TabletIndications :Anxiety and depression,Neurop athy Take 1 Tablet by mouth every 8 hours as needed for Severe pain. 90 Tablet 025 Active diazePAM (VALIUM) 5 MG TabletIndications :Anxiety and depression,Neurop athy Take 1 Tablet by mouth nightly as needed for Anxiety. 30 Tablet 025 Active Entresto 24-26 MG Tablet 025 Active ergocalciferol (VITAMIN D) 69167 UNIT Capsule Take 1 Capsule by mouth once a week. 12 Capsule 025 Active rosuvastatin (CRESTOR) 20 MG Tablet Take 1 Tablet by mouth nightly. 90 Tablet 1 025 Active albuterol (PROVENTIL, VENTOLIN) (2.5 MG/3ML) 0.083% Nebulizer SolnIndications:P ulmonary emphysema, unspecified emphysema type (HCC) USE ONE (1) VIAL THREE (3) ML BY NEBULIZATION ROUTE FOUR (4) TIMES DAILY NEEDED FOR WHEEZING OR SHORTNESS OF BREATH 1 mL 2 025 Active empagliflozin (Jardiance) 25 MG Tablet Take 1 Tablet by mouth daily. 90 Tablet 1 025 Active rosuvastatin (CRESTOR) 20 MG Tablet TAKE ONE (1) TABLET BY MOUTH NIGHTLY. 90 Tablet 1 024 2024 Disconti nued(Reo rder) albuterol (PROVENTIL, VENTOLIN) (2.5 MG/3ML) 0.083% Nebulizer SolnIndications:P ulmonary emphysema, unspecified emphysema type (HCC) USE ONE (1) VIAL THREE (3) ML BY NEBULIZATION ROUTE FOUR (4) TIMES DAILY NEEDED FOR WHEEZING OR SHORTNESS OF BREATH 1 mL 2 024 2024 Disconti nued(Reo rder) ergocalciferol (VITAMIN D) 50357 UNIT Capsule Take 1 Capsule by mouth once a week. 12 Capsule 025 2024 Disconti nued(Reo rder) Empagliflozin (JARDIANCE) 10 MG Tablet Take 1 Tablet by mouth daily. 90 Tablet 1 025 2024 Disconti nued(Dos e adjustme nt) oxyCODONE-Acetami nophen (PERCOCET) 10-325 MG TabletIndications :Anxiety and depression,Neurop athy Take 1 Tablet by mouth every 8 hours as needed for Severe pain. 90 Tablet 025 2024 Disconti nued(Reo rder) diazePAM (VALIUM) 5 MG TabletIndications :Anxiety and depression,Neurop athy Take 1 Tablet by mouth nightly as needed for Anxiety. 30 Tablet 025 2024 Disconti nued(Reo rder) Active Problems Patient Care Coordination No te Formatting of this note migh t be different from the original. Pumper Head's Impressions: Juliette is a 70 y.o. female who was referred to care management for Complex care needs During this assessment, it was determined that the patient and this mortgage or loan underwriter will focus on the followin. COPD Management 2. CHF Weight Monitoring 3. Patient/Caregiver Support ACP: Power of Operations Dispatcher for Health Care (POA-HC): POA-HC form is [...] exam; Tdap Problem Noted Date Diagnosed Date Sepsis 10/05/2024 HCAP (healthcare-associated pneumonia) Esophagitis 10/05/2024 COPD exacerbation 08/22/2024 Severe malnutrition 04/28/2024 Cognitive impairment 03/20/2024 Chronic cough 01/31/2023 04/12/2023 Tobacco dependence syndrome 01/31/202303/[address] nodules on CT 01/30/2022 Chronic combined systolic and diastolic heart fa ilure 10/19/2021 Edema 08/21/2021 Overview (10/05/2021): Added automatically from request for surgery [id number] Back pain 11/09/2019 Tricuspid valve insufficiency 11/09/2019 [...] Encounters Date Type Department Care Team Description 11/30/2024 1:40 PM CDT Clinical Support [facility] Family Medicine [facility] [address] [place] [address] [facility] [place] Nurse [facility] Dysuria (Primary Dx) Discharge Disposition: Discharged to home or Selfcare 11/30/2024 Travel 11/30/2024 Telephone [facility] Call Center [address] [place] [address] Liz Capellan, DO Advice Only 11/26/2024 2:00 PM CDT Procedure Visit [facility] Endocrinology [facility] [address] [place] [address] Type 2 diabetes mellitus with diabetic neuropathy, with long-term current use of insulin (HCC) (Primary Dx) Discharge Disposition: Discharged to home or Selfcare 11/26/2024 1:30 PM CDT Office Visit [facility] Endocrinology [facility] [address] [place] [address] Yasmin Restrepo MD Type 2 diabetes mellitus with diabetic neuropathy, with long-term current use of insulin (HCC) (Primary Dx); Medication dose changed; Leg swelling Discharge Disposition: Discharged to home or Selfcare 11/26/2024 Travel 11/24/2024 [facility] [place] [address] Liz Capellan, Medication Refill 11/18/2024 11:11 AM CDT - 11/18/2024 11:59 PM CDT Hospital Encounter [facility] Mammography [address] [place] [address] Liz Capellan, Discharge Disposition: Discharged to home or Selfcare 11/18/2024 Travel 11/12/2024 Results Follow-Up [facility] [address] [place] [address] Liz Capellan, CMP (COMPREHENSIVE METABOLIC PANEL), THYROID STIMULATING HORMONE (TSH), VITAMIN B12, Additional followed-up results: 5 11/09/2024 12:20 PM CDT - 11/09/2024 11:59 PM CDT Hospital Encounter [facility] Diagnostic Radiology [address] [place] [address] Liz Capellan, Discharge Disposition: Discharged to home or Selfcare 11/09/2024 11:00 AM CDT Office Visit [facility] [address] [place] [address] Liz Capellan, 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 (Primary Dx); Type 2 diabetes mellitus with diabetic neuropathy, with long-term current use of insulin (HCC); Screening for osteoporosis; Chronic combined systolic and diastolic heart failure (HCC); Hypertriglyceridemia ; Hyperlipidemia, unspecified hyperlipidemia type; Acquired hypothyroidism; Other emphysema (HCC); Anxiety and depression; Chronic prescription opiate use; Vitamin B 12 deficiency; Vitamin D deficiency; Iron deficiency; Hyponatremia; Peptic ulcer disease; Chronic kidney disease, stage 2 (mild); Severe malnutrition (HCC); Macrocytic anemia; Unspecified menopausal and perimenopausal disorder; Acute pain of left shoulder; Dysuria Discharge Disposition: Discharged to home or Selfcare 11/09/2024 Patient Outreach [facility] [address] [place] [address] Yesika Damico RN Care Management 11/09/2024 Travel 11/05/2024 [facility] [place] [address] Liz Capellan, DO Medication Refill 11/04/2024 [facility] [place] [address] Liz Capellan, DO Medication Refill 11/03/2024 10:30 AM CDT Home Care Visit [address] [address] Grace Friedman, PT PT - OASIS DISCHARGE 11/02/2024 9:30 AM CDT Home Care Visit [address] [address] Kisha Barlow, WEAVING INSTRUCTOR PT - HOME VISIT 10/28/2024 9:30 AM CDT Home Care Visit [address] [address] Kisha Barlow, WEAVING INSTRUCTOR PT - HOME VISIT 10/27/2024 11:00 AM CDT Home Care Visit [address] [address] Marci Arita RN SN - DISCIPLINE DISCHARGE 10/27/2024 [facility] [place] [address] Liz Capellan, DO Medication Refill 10/26/2024 9:30 AM CDT Home Care Visit [address] [address] Kisha Barlow, WEAVING INSTRUCTOR PT - HOME VISIT 10/22/2024 9:30 AM CDT Home Care Visit [address] [address] Kisha Barlow, WEAVING INSTRUCTOR PT - HOME VISIT 10/20/2024 10:30 AM CDT Home Care Visit [address] [address] Marci Arita RN SN - PRIORITY VISIT 10/20/2024 9:00 AM CDT Office Visit [facility] [address] [place] [address] Ana Vivar, DOCUMENT MANAGEMENT CONSULTANT, INSULATION PACKER Chronic obstructive pulmonary disease, unspecified COPD type (HCC) (Primary Dx); History of recurrent pneumonia Discharge Disposition: Discharged to home or Selfcare 10/20/2024 Refill [facility] [address] [place] [address] Liz Capellan, DO Medication Refill 10/19/2024 Travel 10/16/2024 Nurse Triage [facility] Call [facility] [address] [place] [phone] Liz Capellan, DO Wheezing; Cough 10/16/2024 [facility] [place] [address] Werner Swift MD Medication Refill 10/15/2024 11:00 AM CDT Home Care Visit [address] [address] Marci Arita RN SN - PRIORITY VISIT 10/14/2024 8:30 AM CDT [facility] [place] [address] [address] Jose Do MD Complete rectal prolapse (Primary Dx) Discharge Disposition: Discharged to home or Selfcare 10/14/2024 Refill [facility] [address] [place] [address] Liz Capellan, DO Medication Refill 10/14/2024 [facility]phone [facility] [address] [place] [phone] Liz Capellan, DO 10/14/2024 Home Care Visit [address] [address] Marci Zepeda RN TELEPHONE ENCOUNTER 10/13/2024 10:00 AM CDT Home Care Visit [address] [address] Guadalupe eMdina, PT PT - INITIAL EVALUATION 10/12/2024 11:30 AM CDT Home Care Visit [address] [address] Rebeca Blake LPN SN - LAB 10/12/2024 Travel 10/12/2024 Telephone [facility] Call [facility] [address] [place] [phone] Liz Capellan, DO 10/12/2024 Refill [facility] [address] [place] [address] Liz Capellan, DO Medication Refill 10/11/2024 4:15 PM CDT - 10/11/2024 5:11 PM CDT Emergency [facility] Emergency [address] [place] [address] Sonny Jules MD Rectal prolapse Discharge Disposition: Discharged to home or Selfcare 10/11/2024 Travel 10/10/2024 10:00 AM CDT Home Care Visit [address] [address] Marci Zepeda RN SN - OASIS RESUMPTION OF CARE Discharge Disposition: Discharged to home or Selfcare 10/10/2024 Home Care Visit [address] [address] Marci Zepeda RN TELEPHONE ENCOUNTER 10/10/2024 Plan of Care Documentation [address] [address] 10/08/2024 Home Health Resumption of Care Planning [address] [address] 10/07/2024 Home Care Visit [address] [address] Marci Arita RN SN - OASIS TRANSFER W/OUT DC 10/07/2024 Refill [facility] - Family [facility] [address] [place] [address] Liz Capellan, Medication Refill 10/05/2024 9:54 AM CDT - 10/08/2024 1:10 PM CDT [facility] [address] [place] [phone] Doug Zuleta MD Krishna, Laurent Do MD Sepsis ([facility]) Discharge Disposition: Home Health Care Svc 10/05/2024 Travel 09/29/2024 11:00 AM CDT Home Care Visit [address] [address] Greta Barth, Student PT - DISCIPLINE DISCHARGE 09/28/2024 3:00 PM CDT Home Care Visit [address] [address] Marci Arita RN SN - HOME VISIT 09/25/2024 10:30 AM CDT Home Care Visit [address] [address] Kisha Barlow, WEAVING INSTRUCTOR PT - HOME VISIT 09/23/2024 9:30 AM CDT Home Care Visit [address] [address] Kisha Barlow, WEAVING INSTRUCTOR PT - HOME VISIT 09/22/2024 1:30 PM CDT Office Visit [facility] [address] [place] [address] Ghazala, Ana N, DOCUMENT MANAGEMENT CONSULTANT, INSULATION PACKER Chronic obstructive pulmonary disease, unspecified COPD type (HCC) (Primary Dx); Subacute cough Discharge Disposition: Discharged to home or Selfcare 09/21/2024 10:00 AM CDT Home Care Visit [address] [address] Marci Arita RN SN - HOME VISIT 09/21/2024 Travel 09/17/2024 9:30 AM CDT Home Care Visit [address] [address] Kisha Barlow, WEAVING INSTRUCTOR PT - HOME VISIT 09/15/2024 1:00 AM CDT Home Care Visit [address] [address] Marci Arita RN SN - HOME VISIT 09/15/2024 Telephone [facility] [address] [place] [phone] Lzi Capellan, DO Advice Only 09/14/2024 9:30 AM CDT Home Care Visit [address] [address] Kisha Barlow, WEAVING INSTRUCTOR PT - HOME VISIT 09/11/2024 10:30 AM CDT Home Care Visit [address] [address] Kisha Barlow, WEAVING INSTRUCTOR PT - HOME VISIT 09/10/2024 [facility] [address] [place] [address] Ngozi Galindo RN COPD ([facility] Remote Patient Monitoring ) 09/08/2024 2:00 PM CDT [facility] [address] [place] [address] Greta Barth, Student PT - INITIAL EVALUATION 09/08/2024 12:30 PM CDT Home Care Visit [address] [address] Marci Feliz OT OT - INITIAL EVALUATION 09/08/2024 10:30 AM CDT Home Care Visit [address] [address] Marci Arita, KATEY SN - OASIS START OF CARE 09/08/2024 Telephone [facility] [place] [address] Yasmin Restrepo MD Medication Management 09/08/2024 Plan of Care Documentation [address] [address] 09/07/2024 1:00 PM CDT Office Visit [facility] [address] [place] [address] Marcin Anderson APRN, JAKOB COPD exacerbation (HCC) (Primary Dx) Discharge Disposition: Discharged to home or Selfcare 09/06/2024 Travel 09/04/2024 [facility] [place] [address] Liz Capellan, DO Medication Refill 09/04/2024 Refill [facility] Med Surg [address] [place] [address] Keith Craft MD Medication Refill 09/03/2024 11:12 AM CDT - 09/03/2024 2:52 PM CDT Emergency [facility] Emergency [address] [place] [address] Doug Zuleta MD COPD exacerbation (HCC) Discharge Disposition: Discharged to home or Selfcare 09/03/2024 Travel 09/03/2024 Telephone [facility] [address] [place] [address] Angelica Moya, RN COPD ([facility] (Remote Patient Monitoring Program) ) 09/02/2024 1:54 PM CDT - 09/02/2024 11:59 PM CDT Hospital Encounter [facility] Respiratory Therapy [address] [place] [address] Werner Swift MD Discharge Disposition: Discharged to home or Selfcare from Last 3 Months Immunizations Immunization Administration Dates Next Due Covid-19, Mrna, Lnp-s, PF, 1 00 mcg/0.5 mL Dose (Moderna) 07/30/2020,07/02/2020 Influenza Vaccine 03/10/2023,07/31/2017 Influenza Vaccine greater than 3 yrs 01/18/2021, 01/21/2020 Influenza, High-dose, Quadrivalent 01/18/2021 Influenza, Quadrivalent, Adjuvanted 02/05/2022 Influenza, Seasonal, Injecta ble, Undefined 01/21/2020 Influenza, high-dose, trivalent, PF 1012/2023,01/19/2020,02/03/2019,01/31,02/10/2016,02/01/2014 Pneumococcal Vaccine - 13 Valent 02/20/2018,07/0 05/2014 Pneumococcal Vaccine Adult - 23 Valent 9 Pneumococcal conjugate PCV20 , polysaccharide [id number] conjugate, adjuvant, PF 11/28/2022 RSV, Recombinant, Protein Link bunit Rsvpref, Adjuvant Recon (Arexvy) 03/22/2023 TB Skin Test 06/25/2016, 7,06/18/2016,06/16 TDAP Vaccine 01/31/2010 Zoster Vaccine Recombinant 02/03/2019,02/19/2018 Family History Medical History Relation Name Comments Asthma Daughter 1 Ciera Cancer Daughter 2 Kidney Cancer Daughter 2 Heart Disease Father No Known Problems Maternal Grandfather No Known Problems Maternal Grandmother Congestive Heart Failure Mother Mom Diabetes Mother Mom Heart Disease Mother Mom Skin Cancer Mother Mom Thyroid Disease Mother Mom Breast Cancer Other Mat. Cousin Diabetes Paternal Grandfather Diabetes Paternal Grandmother Hypertension Son Relation Name Status Comments Daughter 1 Ciera Alive Daughter 2 Alive Father Maternal Grandfather Maternal Grandmother Mother Mom Other Mat. Cousin Alive Paternal Grandfather Paternal Grandmother Son Alive Social History Tobacco Use Types Packs/Day Years Used Date Smoking Tobacco: Former Cigarettes 2 50 1 - 03/16/2018 Smokeless Tobacco: Never Tobacco Cessation:Counseling Given: No Comments:Still uses nictoine patches and gum Alcohol Use Standard Drinks/Week Comments No 0 (1 standard drink = 0.6 oz pur e alcohol) [facility] [employer] Answer Date Recorded In the past 12 months has [employer], gas, oil, or water [employer] threatened to shut off services in your home? Patient declined 10/05/2024 Social Connection and Isolation Panel Answer Date Recorded In a typical week, how many times do you talk on the phone with family, friends, or neighbors? Patient declined 10/05/2024 How often do you get togethe r with friends or relatives? Patient declined 10/05/2024 How often do you attend anabaptism or episcopalian serv ices? Patient declined 10/05/2024 Do you belong to any clubs o r organizations such as anabaptism groups, unions, fraternal or athletic groups, or [...] Total Score - Questions 1-9 0 10/25 [facility] Occupat [facility]ational Stress Questionnaire Answer [...] a senior care (including now)? No 07/13/2023 Housing Stability Vital Sign Answer Richar e Recorded In the last 12 months, was t here a time when you were not able to pay the mortgage or rent on time? No 10/05/2024 In the past 12 months, how m any times have you moved where you were living? 1 10/05/2024 At any time in the past 12 m [facility], were you homeless or living in a senior care (including now)? No 10/05/2024 Education Answer Date [...] Sign Reading Time Taken Comments Blood Pressure 114/64 11/26/2024 1:27 PM CDT Pulse 69 11/26/2024 1:27 PM CDT Temperature 36.3 C (97.4 F) 11/26/2024 1:27 PM CDT Respiratory Rate 22 11/26/2024 1:27 PM CDT Oxygen Saturation 94% 11/26/2024 1:27 PM CDT Inhaled Oxygen Concentration - - Weight 59.7 kg (131 lb 9.6 oz) 11/26/2024 1:27 P M CDT Height 157.5 cm (5' 2) 11/09/2024 11:00 AM CDT Body Mass Index 24.07 11/09/2024 11:00 AM CDT Plan of Treatment Upcoming Encounters Date Type Department Care Team (Late st Contact Info) Description 12/04/2024 12:45 PM CDT Office Visit [facility] Medical [facility] - Family Medicine - [place] [address] [place] [phone] Ana Vivar, DOCUMENT MANAGEMENT CONSULTANT, INSULATION PACKER 2 [facility]. [address] [place] [address] 12/09/2024 11:15 AM CDT Office Visit [facility] Medical [facility] - General Surgery - [place] [address]2 [facility] [address] [place] [phone] Jose Do MD #2 [facility] [address] [place] [address] 01/04/2025 1:30 PM CDT Office Visit [facility] Medical [facility] - Pulmonology & Sleep Medicine - [place] [address]2 [place] [address] Werner Swift MD [address] [place] [address] 03/01/2025 1:30 PM CDT Office Visit [facility] Medical [facility] - Endocrinology - [place] [address] [place] [phone] Yasmin Restrepo MD #[address] [phone] 05/13/2025 1:20 PM HOME CARE ASSISTANT Office Visit [facility] Medical [facility] - Family Medicine - [place] [address] [place] [address] Liz Capellan, DO [address] [address] Health Maintenance Due Date Last Done Comments Alvin 1994 Diabetes: Eye Exam 03/02/2023 03/02/2022 Immunochemical Fecal Occult Blood 06/02/2024 06/02/2023 Influenza Immunization (#1) 01/25/202512/2023, 03/10/2023, 02/05/2022, Additional history exists Diabetes: Hemoglobin A1c 05/11/20252 025, 08/22/2024, 07/20/2024, Additional history exists Lung Cancer Screening 07/25/2025 07/25/2024 , 03/17/2024, 02/21/2024, Additional history exists Diabetes: Foot Exam 10/27/2025 10/27/2024, 07/20/2024, 01/08/2024, Additional history exists Diabetes: Nephropathy Screening 11/09/2025 11/09/2024, 10/05/2024, 09/03/2024, Additional history exists Colonoscopy 01/08/2026 01/09/2016 Colorectal Cancer Screening 01/08/2026 DEXA Bone Density 11/18/2026 11/18/2024, 04/03/2022 Td Immunization Every 10 Years (Adults With 1 Tdap) Discontinued 01/31/2010 Zoster Immunization Completed 02/03/2019, 8 Pneumococcal Immunization (50+ years) Completed 11/28/2022, 04/16/2019, 02/20/2018, Additional history exists Pneumococcal Immunization Combined Discontinued 11/28/2022, 04/16/2019, 02/20/2018, Additional history exists Hepatitis C Virus (HCV) Screening Completed 12/17/2022 Mammogram Discontinued 02/26/2023, 09/2021, 11/02/2020, Additional history exists Respiratory Syncytial Virus (RSV) Immunization (Adult) Completed 03/22/2023 SARS-COV-2 Immunization Discontinued 03/03/20, 02/24/2023, 11/21/2022, Additional history exists Hepatitis B Immunization Discontinued Human Papillomavirus (HPV) Immunization Aged Out No longer eligible based on patient's age to complete this topic Meningococcal Immunization (ACWY) Aged Out No longer [...] Zones/Action plan education. I will notify my [place] if my symptoms fall in the [...] Plan MCCP HEART FAILURE CONCERNS No Liz Capellan, DO Help patients manage type 2 diabetes Care Plan [facility] TYPE 2 DIABETES CONCERN No Liz Capellan, DO Help patient manage blood glucose Care Plan [facility] TYPE 2 DIABETES INSULIN - ANALOG PATTERN CONCERN No Liz Capellan, DO Medical Devices Implanted Type Area Primary Therapist Device Identifier Shelf Expiration Date Model / Serial / Lot Nail Im Gamma3 Long 11mm 1.5mm 180mm 125deg Angled Lock Lt Femoral Titanium Strl - [id number] Implanted:Qty: 1 on 05/29/2023 by Rocael Solano MD at [facility] IMPLANT Left: Femur [place] [employer] 12/25/2027 3125-1 180 S / [id number] / [id number] Screw Bone T10 Full Thread 3.5mm/28mm - [id number] Implanted:Qty: 1 on 05/29/2023 by Rocael Solano MD at [facility] IMPLANT Left: Humerus [employer] 06/26/2023 [id number] / [id number] / N/A Screw Bone T10 Full Thread 3.5mm/34mm - [id number] Implanted:Qty: 1 on 05/29/2023 by Rocael Solano MD at [facility] IMPLANT Left: Humerus [place] [employer] 06/26/2023 [id number] / [id number] / N/A Screw Bone T10 Full Thread 3.5mm/55mm - [id number] Implanted:Qty: 1 on 05/29/2023 by Rocael Solano MD at [facility] IMPLANT Left: Humerus [employer] 06/26/2023 [id number] / [id number] / N/A Screw Locking T10 Full Thread 3.5mm/16mm - [id number] Implanted:Qty: 1 on 05/29/2023 by Rocael Solano MD at [facility] IMPLANT Left: Humerus [employer] 06/26/2023 [id number] / [id number] / N/A Screw Locking T10 Full Thread 3.5mm/18mm - [id number] Implanted:Qty: 1 on 05/29/2023 by Rocael Solano MD at [facility] IMPLANT Left: Humerus [place] [employer] 06/26/2023 [id number] / [id number] / N/A Screw Locking T10 Full Thread 3.5mm/22mm - [id number] Implanted:Qty: 4 on 05/29/2023 by Rocael Solano MD at [facility] IMPLANT Left: Humerus [place] [employer] 06/26/2023 [id number] / [id number] / N/A Screw Locking T10 Full Thread 3.5mm/26mm - [id number] Implanted:Qty: 1 on 05/29/2023 by Rocael Solano MD at [facility] IMPLANT Left: [employer]umerus [place] [employer] 06/26/2023 [id number] / [id number] / N/A Screw Locking T10 Full Thread 3.5mm/30mm - [id number] Implanted:Qty: 2 on 05/29/2023 by Rocael Solano MD at [facility] IMPLANT Left: [employer]umerus [place] [employer] 06/26/2023 [id number] / [id number] / N/A Screw Bone 10.5mm 80mm Gamma3 Ti Hip Trochanter Lag Strl Long Nail - [id number] Implanted:Qty: 1 on 05/29/2023 by Rocael Solano MD at [facility] IMPLANT Left: Femur [employer] 09/24/2027 3060-0 080 S / [id number] / [id number] Screw Bone 5mm 32.5mm T2 Ti Fthrd Femur Hum Tibia Prox Lock Strl Im Nail Sys - [id number] Implanted:Qty: 1 on 05/29/2023 by Rocael Solano MD at [facility] IMPLANT Left: [employer]ur [place] [employer] 12/24/2026 2026-0584 S / [id number] / [id number] Screw Locking T10 Full Thread 3.5mm/36mm - [id number] Implanted:Qty: 1 on 05/29/2023 by Rocael Solano MD at [facility] IMPLANT Left: [employer] 06/26/2023 [id number] / [id number] / N/A Screw Locking T10 Full Thread 3.5mm/55mm - [id number] Implanted:Qty: 1 on 05/29/2023 by Rocael Solano MD at [facility] IMPLANT Left: Humerus [place] [employer] 06/26/2023 [id number] / [id number] / N/A Plate 89mm Ti 4 Shaft Hole Lock Variax Bone Elbow Left Olecranon Ns - [id number] Implanted:Qty: 1 on 05/29/2023 by Rocael Solano MD at [facility] IMPLANT Left: Humerus [place] [employer] 06/26/2023 [id number] / [id number] / N/A Screw Bone T10 Full Thread 3.5mm/18mm - [id number] Implanted:Qty: 1 on 05/29/2023 by Rocael Solano MD at [facility] IMPLANT Left: [employer] 06/26/2023 [id number] / [id number] / N/A Screw Bone T10 Full Thread 3.5mm/22mm - [id number] Implanted:Qty: 1 on 05/29/2023 by Rocael Solano MD at [facility] IMPLANT Left: [employer] 06/26/2023 [id number] / [id number] / N/A Screw Bone T10 Full Thread 3.5mm/26mm - [id number] Implanted:Qty: 2 on 05/29/2023 by Rocael Solano MD at [facility] IMPLANT Left: [employer] 06/26/2023 [id number] / [id number] / N/A 3.5mm X 60mm Locking Screw Implanted:Qty: 1 on 05/29/2023 by Rocael Solano MD at [facility] Left: Humerus [place] 06/26/2023 [id number] / [id number] / N/A 2.7mm X 18mm Non Locking Screw Implanted:Qty: 1 on 05/29/2023 by Rocael Solano MD at [facility] Left: Humerus [place] 06/26/2023 [id number] / [id number] / N/A Left Distal Lateral Humerus Plate 2 Hole Implanted:Qty: 1 on 05/29/2023 by Rocael Solano MD at [facility] Left: Humerus [place] 06/26/2023 [id number] / [id number] / N/A Distal Medial Humerus Plate 3 Hole Implanted:Qty: 1 on 05/29/2023 by Rocael Solano MD at [facility] Left: Humerus [place] 06/26/2023 [id number] / [id number] / N/A 3.5mm X 20mm Implanted:Qty: 1 on 05/29/2023 by Rocael Solano MD at [facility] Left: Humerus [place] 06/26/2023 [id number] / [id number] / N/A Procedures Procedure Name Priority Date/Time Associated Diagnosis Comments CULTURE, URINE Routine 11/30/2024 4:47 PM CDT Dysuria RADHA BONE DENSITOMETRY AXIAL SKELETON Routine 11/18/2024 11:32 AM CDT Screening for osteoporosis Unspecified menopausal and perimenopausal disorder CULTURE, URINE Routine 11/10/2024 10:55 AM CDT Dysuria CBC WITH AUTO DIFFERENTIAL Routine 11/09/2024 12:18 PM CDT Type 2 diabetes mellitus with diabetic neuropathy, with long-term current use of insulin (HCC) 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 Hyperlipidemia, unspecified hyperlipidemia type Acquired hypothyroidism Vitamin D deficiency Iron deficiency Hyponatremia Chronic kidney disease, stage 2 (mild) Severe malnutrition (HCC) Macrocytic anemia HEMOGLOBIN A1C W/ ESTIMATED GLUCOSE Routine 11/09/2024 12:18 PM CDT Type 2 diabetes mellitus with diabetic neuropathy, with long-term current use of insulin (HCC) Chronic combined systolic and diastolic heart failure (HCC) Hyperlipidemia, unspecified hyperlipidemia type Acquired hypothyroidism Vitamin B 12 deficiency Vitamin D deficiency Chronic kidney disease, stage 2 (mild) VITAMIN D, 25 HYDROXY TOTAL Routine 11/09/2024 12:18 PM CDT Type 2 diabetes mellitus with diabetic neuropathy, with long-term current use of insulin (HCC) 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 Hyperlipidemia, unspecified hyperlipidemia type Acquired hypothyroidism Vitamin D deficiency Iron deficiency Hyponatremia Chronic kidney disease, stage 2 (mild) Severe malnutrition (HCC) Macrocytic anemia VITAMIN B12 Routine 11/09/2024 12:18 PM CDT Type 2 diabetes mellitus with diabetic neuropathy, with long-term current use of insulin (HCC) 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 Hyperlipidemia, unspecified hyperlipidemia type Acquired hypothyroidism Vitamin D deficiency Iron deficiency Hyponatremia Chronic kidney disease, stage 2 (mild) Severe malnutrition (HCC) Macrocytic anemia THYROID STIMULATING HORMONE (TSH) Routine 11/09/2024 12:18 PM CDT Type 2 diabetes mellitus with diabetic neuropathy, with long-term current use of insulin (HCC) 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 Hyperlipidemia, unspecified hyperlipidemia type Acquired hypothyroidism Vitamin D deficiency Iron deficiency Hyponatremia Chronic kidney disease, stage 2 (mild) Severe malnutrition (HCC) Macrocytic anemia CMP (COMPREHENSIVE METABOLIC PANEL) Routine 11/09/2024 12:18 PM CDT Type 2 diabetes mellitus with diabetic neuropathy, with long-term current use of insulin (HCC) 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 Hyperlipidemia, unspecified hyperlipidemia type Acquired hypothyroidism Vitamin D deficiency Iron deficiency Hyponatremia Chronic kidney disease, stage 2 (mild) Severe malnutrition (HCC) Macrocytic anemia COMPLETE BLOOD COUNT (CBC) WITH DIFF Routine 11/09/2024 12:18 PM CDT Type 2 diabetes mellitus with diabetic neuropathy, with long-term current use of insulin (HCC) 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 Hyperlipidemia, unspecified hyperlipidemia type Acquired hypothyroidism Vitamin D deficiency Iron deficiency Hyponatremia Chronic kidney disease, stage 2 (mild) Severe malnutrition (HCC) Macrocytic anemia POCT UA AUTOMATED W/O MICRO Routine 11/09/2024 11:42 AM CDT Dysuria ECHO GENERIC 10/28/2024 12:00 AM CDT PODIATRY CONSULT 10/27/2024 12:00 AM CDT POCT GLUCOSE Routine 10/08/2024 10:59 AM CDT POCT GLUCOSE Routine 10/08/2024 8:30 AM CDT CBC WITH AUTO DIFFERENTIAL Routine 10/08/2024 6:28 AM CDT COMPLETE BLOOD COUNT (CBC) WITH DIFF Routine 10/08/2024 6:28 AM CDT BASIC METABOLIC PANEL W/ CALCIUM TOTAL Routine 10/08/2024 6:28 AM CDT POCT GLUCOSE Routine 10/07/2024 9:10 PM CDT POCT GLUCOSE Routine 10/07/2024 4:25 PM CDT POCT GLUCOSE Routine 10/07/2024 11:07 AM CDT POCT GLUCOSE Routine 10/07/2024 8:08 AM CDT CBC WITH AUTO DIFFERENTIAL Routine 10/07/2024 5:21 AM CDT COMPLETE BLOOD COUNT (CBC) WITH DIFF Routine 10/07/2024 5:21 AM CDT BASIC METABOLIC PANEL W/ CALCIUM TOTAL Routine 10/07/2024 5:21 AM CDT POCT GLUCOSE Routine 10/06/2024 9:28 PM CDT POCT GLUCOSE Routine 10/06/2024 5:43 PM CDT POCT GLUCOSE Routine 10/06/2024 3:22 PM CDT POCT GLUCOSE Routine 10/06/2024 11:59 AM CDT POCT GLUCOSE Routine 10/06/2024 7:23 AM CDT CBC WITH AUTO DIFFERENTIAL Routine 10/06/2024 4:54 AM CDT COMPLETE BLOOD COUNT (CBC) WITH DIFF Routine 10/06/2024 4:54 AM CDT BASIC METABOLIC PANEL W/ CALCIUM TOTAL Routine 10/06/2024 4:54 AM CDT RHYTHM STRIP 10/06/2024 12:00 AM CDT RHYTHM STRIP 10/06/2024 12:00 AM CDT AEROSOL NEBULIZER-INITIAL Routine 10/05/2024 11:40 PM CDT MDI TREATMENT RT-INITIAL Routine 10/05/2024 11:40 PM CDT MDI TREATMENT RT-SUBSEQUENT Routine 10/05/2024 11:40 PM CDT POCT GLUCOSE Routine 10/05/2024 8:47 PM CDT POCT GLUCOSE Routine 10/05/2024 6:06 PM CDT PROCALCITONIN STAT 10/05/2024 5:05 PM CDT MRSA NASAL PCR Routine 10/05/2024 5:05 PM CDT MRSA NASAL BY PCR Routine 10/05/2024 5:[address] ANGIO CHEST W/WO CONTRAST WITH PP (POST PROCESSING) Stat with Interpretation 10/05/2024 4:33 PM CDT STREPTOCOCCUS PNEUMONIAE ANTIGEN, URINE Routine 10/05/2024 3:16 PM CDT UR LEGIONELLA ANTIGEN Routine 10/05/2024 3:16 PM CDT POCT GLUCOSE Routine 10/05/2024 2:54 PM CDT POCT GLUCOSE STAT 10/05/2024 1:20 PM CDT SMEAR, GRAM STAIN STAT 10/05/2024 12:23 PM CDT CULTURE, RESPIRATORY, LOWER STAT 10/05/2024 12:23 PM CDT POCT GLUCOSE STAT 10/05/2024 11:50 AM CDT POCT GLUCOSE STAT 10/05/2024 11:19 AM CDT XR CHEST SINGLE VIEW PORTABLE STAT 10/05/2024 11:14 AM CDT URINALYSIS REFLEX IF INDICATED BY ABNORMAL RESULTS STAT 10/05/2024 11:09 AM CDT POCT GLUCOSE STAT 10/05/2024 10:57 AM CDT LACTIC ACID (LACTATE) STAT 10/05/2024 10:54 AM CDT CULTURE, BLOOD STAT 10/05/2024 10:53 AM CDT CULTURE, BLOOD STAT 10/05/2024 10:[address] HEAD OR BRAIN WO CONTRAST Stat with Interpretation 10/05/2024 10:33 AM CDT BLUE TOP TUBE STAT 10/05/2024 10:19 AM CDT POCT GLUCOSE STAT 10/05/2024 10:19 AM CDT EXTRA TUBES STAT 10/05/2024 10:19 AM CDT CBC WITH AUTO DIFFERENTIAL STAT 10/05/2024 10:15 AM CDT MAGNESIUM (MG) STAT 10/05/2024 10:15 AM CDT CMP (COMPREHENSIVE METABOLIC PANEL) STAT 10/05/2024 10:15 AM CDT COMPLETE BLOOD COUNT (CBC) WITH DIFF STAT 10/05/2024 10:15 AM CDT EKG 12 LEAD STAT 10/05/2024 10:07 AM CDT CRITICAL CARE Routine 10/05/2024 10:03 AM CDT RHYTHM STRIP 10/05/2024 12:00 AM CDT RHYTHM STRIP 10/05/2024 12:00 AM CDT EKG SCAN 10/05/2024 12:00 AM CDT TROPONIN I, HIGH SENSITIVITY (HSTRP) STAT 09/03/2024 2:19 PM CDT XR CHEST SINGLE VIEW PORTABLE STAT 09/03/2024 11:54 AM CDT RSV,SARS-COV-2,INFL UENZA A&B BY PCR STAT 09/03/2024 11:45 AM CDT CBC WITH AUTO DIFFERENTIAL STAT 09/03/2024 11:43 AM CDT BLOOD GASES, VENOUS W/ O2 SATURATION STAT 09/03/2024 11:43 AM CDT MAGNESIUM (MG) STAT 09/03/2024 11:43 AM CDT B-TYPE NATRIURETIC PEPTIDE (BNP) STAT 09/03/2024 11:43 AM CDT TROPONIN I, HIGH SENSITIVITY (HSTRP) STAT 09/03/2024 11:43 AM CDT CMP (COMPREHENSIVE METABOLIC PANEL) STAT 09/03/2024 11:43 AM CDT COMPLETE BLOOD COUNT (CBC) WITH DIFF STAT 09/03/2024 11:43 AM CDT CONTINUOUS AEROSOL TREATMENT-INITIAL STAT 09/03/2024 11:39 AM CDT CRITICAL CARE Routine 09/03/2024 11:26 AM CDT EKG 12 LEAD STAT 09/03/2024 11:19 AM CDT EKG SCAN 09/03/2024 12:00 AM CDT COMPLETE PFT W + W/O BRONCHODILATOR Routine 09/02/2024 Pulmonary emphysema, unspecified emphysema type (HCC) CT CHEST W/O CONTRAST Routine 07/25/2024 12:53 PM HOME CARE ASSISTANT Lymphadenopathy Abnormal CT of the chest STOOL, OCCULT BLOOD, DIAGNOSTIC, VIA GUAIAC STAT 06/02/2023 5:05 PM HOME CARE ASSISTANT RADHA SCREENING BILATERAL DIGITAL W CAD W CLARI Routine 02/26/2023 1:23 PM CDT Visit for screening mammogram HEPATITIS C ANTIBODY Routine 12/17/2022 11:39 AM CDT Need for hepatitis C screening test DIABETIC BILATERAL RETINAL IMAGING WITH COMPUTERIZED INTERPRETATION Routine 03/02/2022 10:32 AM CDT Type 2 diabetes mellitus with diabetic neuropathy, with long-term current use of insulin (HCC) from Last 3 Months or Most Recently Relevant to Health Maintenance Results * CULTURE, URINE (11/30/2024 4:47 PM CDT) Only the most recent of2 resultswithin the time period is included. CULTURE RESULTS Mixed Growth of One or More Distal Urethral Contaminants 12/01/2024 8:32 PM CDT [facility] Culture URINE SPECIMEN OBTAINED BY CLEAN CATCH PROCEDURE / Unknown Non-Phlebotomy Collection / Unknown 11/30/2024 4:47 PM CDT 11/30/2024 4:47 PM CDT us Liz Jamilah Capellan DO MICROBIOLOGY - GENERAL ORDERA BLES Final Result [facility] [address] [place] [address], [place] * [facility] BONE DENSITOMETRY AXIAL SKELETON (11/18/2024 11:32 AM CDT) Anatomical Region Laterality Modality BODY N/A Computed Radiogr aphy 11/19/2024 4:17 PM CDT Impressions 11/19/2024 4:19 PM CDT IMPRESSION: 1. Osteoporosis. REFERENCE: Bone mineral density: T-Score: Normal (T-score above or = -1.0) Low bone mass (T-score between -1.0 and -2.5) replaces the previously used term osteopenia Osteoporosis (T-score = or below -2.5) Z-Score: Within the expected range for age (Z-score above -2.0) Below the expected range for age (Z-score is -2.0 or below) Please see below follow up recommendations. Medical evaluation for secondary causes of low [...] greater than 3% should be considered for pharmacological treatment for the prevention of osteoporosis. For further information, including treatment recommendations, please refer to the 2019 ISCD Official Positions (http://www.iscd.org) and the NOF's Clinician's Guide to Prevention and Treatment of Osteoporosis (http://www.nof.org/professionals/clinical-guidelines) Narrative 11/19/2024 4:19 PM CDT EXAM DESCRIPTION: [facility] BONE DENSITOMETRY AXIAL SKELETON REASON FOR STUDY: 74 y/o year old F with given history of: post menopausal Primary Therapist/Model: Holidu (S/N [id number]) Facility LSC value of 0.028 for the AP spine and 0.033 for the femur. CLINICAL INFORMATION: Current height: 62 inches Maximum height: 62 inches Weight: 130 pounds Risk factors: Postmenopausal, adult fracture COMPARISON: 04/03/2022 FINDINGS: AP LUMBAR SPINE L2-L4: Total BMD is 1.037 g/cm2 T-score is -1.4 This is decreased in comparison to prior exam which is statistically significant. LEFT forearm: 33% radius BMD is 0.512 g/cm2 T-score is -4.2 FRAX: FRAX tool cannot be utilized as T-Score for mandatory regions required to calculate FRAX is unavailable. THIS IS AN ELECTRONICALLY VERIFIED FINAL REPORT 11/19/2024 4:17 PM - Electronically signed by Yonathan EMERSON: IDANIA Report ID: [id number] Reading Location: [place] [address] Procedure Note Yonathan Almonte MD - 11/19/2024 EXAM DESCRIPTION: [facility] BONE DENSITOMETRY AXIAL SKELETON REASON FOR STUDY: 74 y/o year old F with given history of: post menopausal Primary Therapist/Model: Holidu (S/N [id number]) Facility LSC value of 0.028 for the AP spine and 0.033 for the femur. CLINICAL INFORMATION: Current height: 62 inches Maximum height: 62 inches Weight: 130 pounds Risk factors: Postmenopausal, adult fracture COMPARISON: 04/03/2022 FINDINGS: AP LUMBAR SPINE L2-L4: Total BMD is 1.037 g/cm2 T-score is -1.4 This is decreased in comparison to prior exam which is statistically significant. LEFT forearm: 33% radius BMD is 0.512 g/cm2 T-score is -4.2 FRAX: FRAX tool cannot be utilized as T-Score for mandatory regions required to calculate FRAX is unavailable. THIS IS AN ELECTRONICALLY VERIFIED FINAL REPORT 11/19/2024 4:17 PM - Electronically signed by Yonathan Almonte M.D. MF: [email or web address] Report ID: [id number] Reading Location: [id number] IMPRESSION: 1. Osteoporosis. REFERENCE: Bone mineral density: T-Score: Normal (T-score above or = -1.0) Low bone mass (T-score between -1.0 and -2.5) replaces the previously used term osteopenia Osteoporosis (T-score = or below -2.5) Z-Score: Within the expected range for age (Z-score above -2.0) Below the expected range for age (Z-score is -2.0 or below) Please see below follow up recommendations. Medical evaluation for secondary causes of low [...] greater than 3% should be considered for pharmacological treatment for the prevention of osteoporosis. For further information, including treatment recommendations, please refer to the 2019 ISCD Official Positions (http://www.iscd.org) and the NOF's Clinician's Guide to Prevention and Treatment of Osteoporosis (http://www.nof.org/professionals/clinical-guidelines) us Liz Capellan DO IMG DEXA ORDERABLES Final Res ult * VITAMIN D, 25 HYDROXY TOTAL (11/09/2024 12:18 PM CDT) [facility] VITAMIN D, 25 HYDROX 43.6 ng/mL 11/09/2024 2:00 PM CDT [facility] Blood Venipuncture / Unknown 11/09/2024 12:18 PM CDT 11/09/2024 1:03 PM CDT Narrative [facility] - 11/09/2024 2:00 PM CDT Published reference ranges for Vitamin D vary depending on time and place and method of testing, and on patient's age, sex, ethnicity and levels of other measured analytes such as parathormone, calcium and phosphorus. The result should be evaluated in conjunction with clinical findings and suspicions. [place] [employer] and Endocrine Clinical Practice Guidelines: Status Vitamin D levels (ng/mL) Deficient <=20 At risk of inadequacy 21-29 Sufficient 30-100 Centers of Disease Control and Prevention Guidelines: Status Vitamin D levels (ng/mL) Deficient <13 At risk of inadequacy 13-19 Sufficient 20-50 Possibly harmful >50 References: [place] [employer], 2010 Dietary reference intakes for calcium and vitamin D. [place]: The National Academies Press. Lizzie M, Chaitanya N, Felicia NORRIS, et al., Evaluation, treatment, and prevention of Vitamin D deficiency: an Endocrinology Clinical Practice Guideline. JCEM 2011 96: 7 4471-9920. Filippo A, Ahsan C, Partha D, et al., Vitamin D Status: [place], , [facility] data brief, no. 59, MD [place]: [facility] Statistics. 2011. Liz Capellan DO CHEMISTRY ORDERABLES Final Re sult [facility] [address] [place] [address] * (ABNORMAL) HEMOGLOBIN A1C W/ ESTIMATED GLUCOSE (11/09/2024 12:18 PM CDT) HGB-A1C 7.7(H) 4.0 - 6.0 % 11/09/2024 1:29 PM CDT [facility] Est Average Glucose 174.3 mg/dL 11/09/2024 1:29 PM CDT [facility] Blood Venipuncture / Unknown 11/09/2024 12:18 PM CDT 11/09/2024 1:04 PM CDT Narrative [facility] - 11/09/2024 1:29 PM CDT HEMOGLOBIN A1C: DIABETIC PATIENTS: WELL-CONTROLLED: 6.2 - 7.0 INTERMEDIATE WELL-CONTROLLED: 7.0 - 9.0 POORLY-CONTROLLED: >9.0 Specimens containing greater than 5% of Hemoglobin F may result in lower than expected % HbA1C results. us Liz Capellan DO CHEMISTRY ORDERABLES Final Re sult [facility] [address] [place] [address] * (ABNORMAL) CBC WITH AUTO DIFFERENTIAL (11/09/2024 12:18 PM CDT) Only the most recent of6 resultswithin the time period is included. WBC 9.26 4.00 - 12.00 10(3)/mcL 11/09/2024 3:17 PM CDT [facility] RBC 3.48(L) 3.80 - 5.30 10(6)/mcL 11/09/2024 3:17 PM CDT [facility] HEMOGLOBIN (HGB) 12.2 12.0 - 15.8 g/dL 11/09/2024 3:17 PM CDT [facility] HEMATOCRIT (HCT) 39.5 36.0 - 47.0 % 11/09/2024 3:17 PM CDT [facility] MCV 113.5(H) 82.0 - 96.0 fL 11/09/2024 3:17 PM CDT [facility] MCH 35.1(H) 26.0 - 34.0 pg 11/09/2024 3:17 PM CDT [facility] MCHC 30.9(L) 31.0 - 36.0 g/dL 11/09/2024 3:17 PM CDT [facility] PLATELET COUNT 333 140 - 440 10(3)/mcL 11/09/2024 3:17 PM CDT [facility] RDW 13.3 11.8 - 15.5 % 11/09/2024 3:17 PM CDT [facility] MPV 9.5(L) 9.7 - 12.4 fL 11/09/2024 3:17 PM CDT [facility] NEUTROPHILS 75.5(H) 47.0 - 73.0 % 11/09/2024 3:17 PM CDT [facility] LYMPHOCYTES 15.4(L) 18.0 - 42.0 % 11/09/2024 3:17 PM CDT [facility] MONOCYTES 7.1 4.0 - 12.0 % 11/09/2024 3:17 PM CDT [facility] EOSINOPHILS 1.2 0.0 - 5.0 % 11/09/2024 3:17 PM CDT [facility] BASOPHILS 0.8 0.0 - 1.0 % 11/09/2024 3:17 PM CDT [facility] ABSOLUTE NEUTROPHILS 6.99 1.60 - 7.70 10(3)/[facility] 11/09/2024 3:17 PM CDT [facility] ABSOLUTE LYMPHOCYTES 1.43 1.30 - 3.20 10(3)/[facility] 11/09/2024 3:17 PM CDT [facility] ABSOLUTE MONOCYTES 0.66 0.20 - 1.00 10(3)/[facility] 11/09/2024 3:17 PM CDT [facility] ABSOLUTE EOSINOPHIL 0.11 0.00 - 0.40 10(3)/[facility] 11/09/2024 3:17 PM CDT [facility] ABSOLUTE BASOPHILS 0.07 0.00 - 0.10 10(3)/[facility] 11/09/2024 3:17 PM CDT [facility] NRBC PER 100 WBC 0 11/10/19 25 3:17 PM CDT [facility] RESULTS ARE CONSISTENT WITH PERIPHERAL SMEAR REVIEW Yes 11/09/2024 3:17 PM CDT [facility] RBC MORPHOLOGY CONSISTENT WITH INDICES Yes 11/09/2024 3:17 PM CDT [facility] Blood Venipuncture / Unknown 11/09/2024 12:18 PM CDT 11/09/2024 1:04 PM CDT us Liz Jamilah Capellan DO HEMATOLOGY ORDERABLES Final R esult [facility] [place] [address] * (ABNORMAL) VITAMIN B12 (11/09/2024 12:18 PM CDT) [facility] VITAMIN B12 >2,000(H) 213 - 816 pg/mL 11/09/2024 2:02 PM CDT [facility] Blood Venipuncture / Unknown 11/09/2024 12:18 PM CDT 11/09/2024 1:03 PM CDT us Liz [employer] DO CHEMISTRY ORDERABLES Final Re sult Performing Organization Address City/[facility]/ZIP Co de Phone Number [facility] [place] [address] * THYROID STIMULATING HORMONE (TSH) (11/09/2024 12:18 PM CDT) [facility] [facility] TSH 0.751 0.300 - 5.000 mIU/L 11/09/2024 1:53 PM CDT [facility] Blood Venipuncture / Unknown 11/09/2024 12:18 PM CDT 11/09/2024 1:03 PM CDT us Liz L Marilia DO CHEMISTRY ORDERABLES Final Re sult Performing Organization Address City/[facility]/ZIP Co de Phone Number [facility] [address] [place] [address] * (ABNORMAL) CMP (COMPREHENSIVE METABOLIC PANEL) (11/09/2024 12:18 PM CDT) Only the most recent of3 resultswithin the time period is included. [facility] SODIUM 137 136 - 145 mmol/L 11/09/2024 1:36 PM CDT [facility] POTASSIUM 4.3 3.5 - 5.1 mmol/L 11/09/2024 1:36 PM CDT [facility] CHLORIDE 103 98 - 107 mmol/L 11/09/2024 1:36 PM CDT [facility] CO2, VENOUS 26 22 - 30 mmol/L 11/09/2024 1:36 PM CDT [facility] ANION GAP 12.3 <18.0 mmol/L 11/09/2024 1:36 PM CDT [facility] GLUCOSE 186(H) 70 - 99 mg/dL 11/09/2024 1:36 PM CDT [facility] BUN 23(H) 10 - 20 mg/dL 11/09/2024 1:36 PM T [facility] CREATININE, BLOOD 1.11(H) 0.60 - 1.00 mg/dL 11/09/2024 1:36 PM CDT [facility] BUN/CREATININE RATIO 21(H) 12 - 20 ratio 11/09/2024 1:36 PM CDT [facility] TOTAL PROTEIN 6.3 6.0 - 8.0 g/dL 11/09/2024 1:36 PM CDT [facility] ALBUMIN 3.6 3.5 - 5.0 g/dL 11/09/2024 1:36 PM T [facility] A/G RATIO 1.3 1.0 - 2.2 11/09/2024 1:36 PM T [facility] CALCIUM 8.8 8.7 - 10.5 mg/dL 11/09/2024 1:36 PM CDT [facility] T BILI 0.5 0.2 - 1.2 mg/dL 11/09/2024 1:36 PM CDT [facility] SGOT (AST) 20 <43 U/L 11/09/2024 1:36 PM CDT [facility] SGPT (ALT) 11 <56 U/L 11/09/2024 1:36 PM T [facility] ALKALINE PHOSPHATASE 58 40 - 150 U/L 11/09/2024 1:36 PM CDT [facility] IS THE PATIENT REQUIRED TO BE FASTING? No 11/09/2024 1:36 PM CDT [facility] GFR, ESTIMATED 52(L) >=60 11/09/2024 1:36 PM CDT [facility] Comment: Creatinine Clearance is the preferred criteria for selecting drug dose adjustments in renally impaired patients. The GFR is provided as additional pertinent clinical information. GFR is reported in mL/min/1.73 sq m. Calculation based on the Chronic Kidney Disease Epidemiology Collaboration (CKD- EPI) equation refit without adjustment for race. GFR, EST. 58(L) >=60 2 025 1:36 PM CDT [facility] GFR, EST. NONAFRICAN 48(L) >=60 11/09/2024 1:36 PM CDT [facility] Blood Venipuncture / Unknown 11/09/2024 12:18 PM CDT 11/09/2024 1:03 PM CDT us Liz Capellan DO CHEMISTRY ORDERABLES Final Re sult [facility] [address] [place] [address] * (ABNORMAL) POCT UA AUTOMATED W/O MICRO (11/09/2024 11:42 AM CDT) POC UA SPECIFIC GRAVITY 1.015 URINE PH 6.0 5.0 - 9.0 POC URINE LEUKOCYTES 75 /uL(A) Negative Jairo/uL POC URINE NITRITE Negative Negative POC URINE PROTEIN Trace(A) Negative mg/dL POC URINE GLUCOSE >1000 mg/dL(A) Negative, Norm mg/dL POC URINE KETONE Negative Negative mg/dL POC URINE UROBILINOGEN Norm Norm, 0.2 E.U./dL (mg/dL), 1 E.U./dL (mg/dL) POC URINE BILIRUBIN Negative Negative mg/dL POC URINE BLOOD INSTRUMENT 50 Gavino/uL(A) Negative Gavino/uL POC URINE COLOR Light Yellow POC URINE CLARITY Cloudy Urine 11/09/2024 11:4 2 AM CDT us Liz L Marilia DO POINT OF CARE TESTING (MANUAL ) Final Result * ECHO GENERIC (10/28/2024 12:00 AM CDT) LV EF(estimated)% 61 RESULTING AGENCY 10/28/2024 us Provider Scan IMG ECHO ORDERABLES Final Result Performing Organization Address City/[facility]/ZIP Co de Phone Number RESULTING AGENCY * PODIATRY CONSULT (10/27/2024 12:00 AM CDT) 10/27/2024 us Keith Craft MD GENERIC SCAN ORDERS CONSULT Loren l Result Performing Organization Address [facility] Co de Phone Number SCAN * (ABNORMAL) POCT Glucose (10/08/2024 10:59 AM CDT) Only the most recent of19 resultswithin the time period is included. GLUCOSE,BEDSID E POCT 222(H) 70 - 99 mg/dL 10/08/2024 11:06 AM CDT [facility] Blood 10/08/2024 10:5 9 AM CDT 10/08/2024 11:06 AM CDT None Provider POINT OF CARE TESTING Final Resu lt Performing Organization Address City/[facility] de Phone Number [facility] [address] [place] [address] * (ABNORMAL) BMP with Ca, Total (10/08/2024 6:28 AM CDT) Only the most recent of3 resultswithin the time period is included. SODIUM 143 136 - 145 mmol/L 10/08/2024 7:47 AM CDT [facility] POTASSIUM 4.2 3.5 - 5.1 mmol/L 10/08/2024 7:47 AM CDT [facility] CHLORIDE 113(H) 98 - 107 mmol/L 10/08/2024 7:47 AM CDT [facility] CO2, VENOUS 23 22 - 30 mmol/L 10/08/2024 7:47 AM CDT [facility] ANION GAP 11.2 <18.0 mmol/L 10/08/2024 7:47 AM CDT [facility] GLUCOSE 165(H) 70 - 99 mg/dL 10/08/2024 7:47 AM CDT [facility] BUN 23(H) 10 - 20 mg/dL 10/08/2024 7:47 AM CDT [facility] CREATININE, BLOOD 0.87 0.60 - 1.00 mg/dL 10/08/2024 7:47 AM CDT [facility] BUN/CREATININE RATIO 26(H) 12 - 20 ratio 10/08/2024 7:47 AM CDT [facility] CALCIUM 8.6(L) 8.7 - 10.5 mg/dL 10/08/2024 7:47 AM CDT [facility] GFR, ESTIMATED >60 >=60 10/08/2024 7:47 AM CDT [facility] Comment: Creatinine Clearance is the preferred criteria for selecting drug dose adjustments in renally impaired patients. The GFR is provided as additional pertinent clinical information. GFR is reported in mL/min/1.73 sq m. Calculation based on the Chronic Kidney Disease Epidemiology Collaboration (CKD- EPI) equation refit without adjustment for race. GFR, EST. >60 >=60 025 7:47 AM CDT [facility] GFR, EST. NONAFRICAN >60 >=60 10/08/2024 7:47 AM CDT [facility] Blood Venipuncture / Unknown 10/08/2024 6:28 AM CDT 10/08/2024 7:27 AM CDT us Tova Mirza DOCUMENT MANAGEMENT CONSULTANT, INSULATION PACKER CHEMISTRY ORDERABLES Loren l Result [facility] [address] [place] [address] * RHYTHM STRIP (10/06/2024 12:00 AM CDT) Only the most recent of4 resultswithin the time period is included. 10/06/2024 us Provider Scan IMG ECG ORDERABLES Final Result Performing Organization Address [facility] de Phone Number RESULTING AGENCY * (ABNORMAL) Procalcitonin (10/05/2024 5:05 PM CDT) PROCALCITONIN 4.16(H) <=0.25 ng/mL 10/05/2024 6:05 PM CDT [facility] Blood Venipuncture / Unknown 10/05/2024 5:05 PM CDT 10/05/2024 5:10 PM CDT Narrative [facility] - 10/05/2024 6:05 PM CDT If the differential diagnosis is systemic bacterial infection, sepsis, or septic shock use these guidelines: <=0.25 ng/mL: Low risk for systemic bacterial infection, sepsis, or septic shock. Localized bacterial infection possible: Suggest re-testing in 24 hours >=0.50 ng/mL: Systemic bacterial infection, sepsis, or septic shock are possible: suggest re-testing in approximately 24 hours. If the differential diagnosis is suspected lower respiratory tract infection (LRTI) or there is confirmed LRTI: < 0.1 ng/mL: Suggests absence of bacterial infection. Antibiotic therapy strongly discouraged. 0.1-0.25 ng/mL: Suggests bacterial infection is unlikely. Antibiotic therapy discouraged. 0.26-0.5 ng/mL: Suggests possible bacterial infection. Antibiotic therapy encouraged. > 0.5 ng/mL: Suggests bacterial infection. Antibiotic therapy strongly encouraged us William Hdz DOCUMENT MANAGEMENT CONSULTANT, INSULATION PACKER IMMUNOLOGY ORDERABLES F inal Result Performing Organization Address [facility] Co de Phone Number [facility] [address] [place] [address] * MRSA NASAL PCR (10/05/2024 5:05 PM CDT) MRSA PCR RESULT Negative Negative, Invalid 10/05/2024 6:25 PM CDT [facility] Other NASOPHARYNGEAL SWAB / Unknown Non-Phlebotomy Collection / Unknown 10/05/2024 5:05 PM CDT 10/05/2024 5:10 PM CDT us Laurent Kumar MD MICROBIOLOGY - GENERAL O RDERABLES Final Result [facility] [address] [place] [address] * CT ANGIO CHEST W/WO CONTRAST WITH PP (POST PROCESSING) (10/05/2024 4:33 PM CDT) Anatomical Region Laterality Modality vascular N/A Computed Tomogra phy 10/05/2024 5:02 PM CDT Impressions 10/05/2024 5:04 PM CDT IMPRESSION: 1. Respiratory motion degrades evaluation of the pulmonary arteries. There is no evidence of pulmonary embolism to the subsegmental level. 2. New areas of nodular consolidation in the left upper and lower lobes, likely representing pneumonia. 3. Trace bilateral pleural effusions and questionable mild pulmonary edema. 4. Circumferential thickening of the mid and distal esophagus, which can be seen with esophagitis. Recommend correlation. 5. New left-sided perinephric stranding, a nonspecific finding. 6. Similar appearance of multiple thoracic and lumbar spine compression fractures. Narrative 10/05/2024 5:04 PM CDT EXAM DESCRIPTION: CT ANGIO CHEST W/WO CONTRAST WITH PP (POST PROCESSING) REASON FOR STUDY: generalized weakness, shortness of breath and mid chest pain when taking a deep breath in onset today. TECHNIQUE: CT angiogram of the chest performed [...] SOLN injected via Intravenous COMPARISON: CT chest 07/25/2024 FINDINGS: VASCULATURE: Evaluation of the pulmonary arteries is mildly degraded due to respiratory motion. Allowing for this, no identified pulmonary emboli the subsegmental level. More distal branches are not well evaluated.. There is no thoracic aortic aneurysm or dissection. LUNGS: Respiratory motion degrades evaluation of the pulmonary parenchyma. There are trace bilateral pleural effusions. There is no pneumothorax. There are new areas of nodular consolidation in the left upper and lower lobes. There is also questionable mild pulmonary edema. Previously described pulmonary nodules are not as well evaluated due to extensive motion and the acute pulmonary process. The central airways are patent. MEDIASTINUM/MARIO: There is circumferential thickening of the mid and distal esophagus. There are no enlarged mediastinal lymph nodes. HEART: Heart size is normal with no pericardial effusion. AXILLA: No adenopathy. CHEST WALL: No masses. No subcutaneous air. HARDWARE/LINES/TUBES: Left subclavian ICD. UPPER ABDOMEN: There is renal excretion of contrast bilaterally. There is left-sided perinephric stranding which is new. MUSCULOSKELETAL: There is no suspicious osseous lesion. There are old left lateral rib fractures. Similar appearance of multiple thoracic spine compression fractures at the T8, T9, T11, and T12 levels. There is a severe compression fracture of the L1 vertebral body with a burst component causing at least moderate spinal canal stenosis, similar to the comparison examination. OTHER: No significant abnormality. THIS IS AN ELECTRONICALLY VERIFIED FINAL REPORT 10/05/2024 5:02 PM - Electronically signed by Dez Hand M.D. AM: AM Report ID: [id number] Reading Location: [id number] Procedure Note Dez Hand MD - 10/05/2024 EXAM DESCRIPTION: CT ANGIO CHEST W/WO CONTRAST WITH PP (POST PROCESSING) REASON FOR STUDY: generalized weakness, shortness of breath and mid chest pain when taking a deep breath in onset today. TECHNIQUE: CT angiogram of the chest performed [...] SOLN injected via Intravenous COMPARISON: CT chest 07/25/2024 FINDINGS: VASCULATURE: Evaluation of the pulmonary arteries is mildly degraded due to respiratory motion. Allowing for this, no identified pulmonary emboli the subsegmental level. More distal branches are not well evaluated.. There is no thoracic aortic aneurysm or dissection. LUNGS: Respiratory motion degrades evaluation of the pulmonary parenchyma. There are trace bilateral pleural effusions. There is no pneumothorax. There are new areas of nodular consolidation in the left upper and lower lobes. There is also questionable mild pulmonary edema. Previously described pulmonary nodules are not as well evaluated due to extensive motion and the acute pulmonary process. The central airways are patent. MEDIASTINUM/MARIO: There is circumferential thickening of the mid and distal esophagus. There are no enlarged mediastinal lymph nodes. HEART: Heart size is normal with no pericardial effusion. AXILLA: No adenopathy. CHEST WALL: No masses. No subcutaneous air. HARDWARE/LINES/TUBES: Left subclavian ICD. UPPER ABDOMEN: There is renal excretion of contrast bilaterally. There is left-sided perinephric stranding which is new. MUSCULOSKELETAL: There is no suspicious osseous lesion. There are old left lateral rib fractures. Similar appearance of multiple thoracic spine compression fractures at the T8, T9, T11, and T12 levels. There is a severe compression fracture of the L1 vertebral body with a burst component causing at least moderate spinal canal stenosis, similar to the comparison examination. OTHER: No significant abnormality. THIS IS AN ELECTRONICALLY VERIFIED FINAL REPORT 10/05/2024 5:02 PM - Electronically signed by Dez Hand M.D. AM: AM Report ID: [id number] Reading Location: [id number] IMPRESSION: 1. Respiratory motion degrades evaluation of the pulmonary arteries. There is no evidence of pulmonary embolism to the subsegmental level. 2. New areas of nodular consolidation in the left upper and lower lobes, likely representing pneumonia. 3. Trace bilateral pleural effusions and questionable mild pulmonary edema. 4. Circumferential thickening of the mid and distal esophagus, which can be seen with esophagitis. Recommend correlation. 5. New left-sided perinephric stranding, a nonspecific finding. 6. Similar appearance of multiple thoracic and lumbar spine compression fractures. us William Hdz APRN, CNP IMG CT ORDERABLES Final Result * (ABNORMAL) Streptococcus Pneumoniae Antigen (10/05/2024 3:16 PM CDT) STREP PNEUMO ANTIGEN Positive(A ) Negative 10/05/2024 9:19 PM CDT [facility] Other Non-Phlebotomy Collection / Unknown 10/05/2024 3:16 PM CDT 10/05/2024 5:10 PM CDT us William Hdz APRN, CNP URINE ORDERABLES Final Result Performing Organization Address [facility] Co de Phone Number [facility] [address] [place] [address], [place] * Ur Legionella Antigen (10/05/2024 3:16 PM CDT) [facility] LEGIONELLA URINE AG Negative Negative 10/05/2024 9:24 PM CDT [facility] Comment:Presumptive Negative for Legionella Pneumophila Serogroup 1 Antigen in urine, suggesting no recent or current infection. Infection due to Legionella cannot be ruled out since other serogroups and species may cause disease. Antigen may not be present in urine in early infection, and the level of antigen present in the urine may be below the detection limit of the test. Other Non-Phlebotomy Collection / Unknown 10/05/2024 3:16 PM CDT 10/05/2024 5:10 PM CDT us William Hdz APRN, CNP URINE ORDERABLES Final Result Performing Organization Address City/[facility]/ZIP Co de Phone Number [facility] [address] [place] [address], [place] * SMEAR, GRAM STAIN (10/05/2024 12:23 PM CDT) GRAM STAIN Rare Squamous Epithelial cells per low power field 10/06/2024 12:49 AM CDT [facility] GRAM STAIN Rare Segmented Neutrophils Seen 10/06/2024 12:49 AM CDT [facility] GRAM STAIN Moderate Yeast seen 10/06/2024 12:49 AM CDT [facility] GRAM STAIN Few Gram Positive Bacilli 10/06/2024 12:49 AM CDT [facility] GRAM STAIN Few Gram Negative Bacilli 10/06/2024 12:49 AM CDT [facility] GRAM STAIN Few Gram Positive Cocci in Pairs and Chains 10/06/2024 12:49 AM CDT [facility] Other SPUTUM SPECIMEN / Unknown Non-Phlebotomy Collection / Unknown 10/05/2024 12:23 PM CDT 10/05/2024 12:43 PM CDT Doug Zuleta MD MICROBIOLOGY - GENERAL OR DERABLES Final Result [facility] [address] [place] [address], [place] * CULTURE, RESPIRATORY, LOWER (10/05/2024 12:23 PM CDT) CULTURE RESULTS Heavy Mixed franko 10/09/2024 7:00 AM CDT [facility] Comment:PROBABLE USUAL FRANKO FOR THIS SPECIMEN SOURCE Culture SPUTUM SPECIMEN / Unknown Non-Phlebotomy Collection / Unknown 10/05/2024 12:23 PM CDT 10/05/2024 12:43 PM CDT Doug Zuleta MD MICROBIOLOGY - GENERAL OR DERABLES Final Result [facility] [address] [place] [address], [place] * XR CHEST SINGLE VIEW PORTABLE (10/05/2024 11:14 AM CDT) Only the most recent of2 resultswithin the time period is included. Anatomical Region Laterality Modality Chest N/A Computed Radiogr aphy 10/05/2024 11:2 9 AM CDT Impressions 10/05/2024 11:32 AM CDT IMPRESSION: Interstitial thickening with opacities most pronounced in the left mid and lower lung. Findings may be due to infection or less likely pulmonary edema, continued follow-up is needed. Narrative 10/05/2024 11:32 AM CDT EXAM DESCRIPTION: XR CHEST SINGLE VIEW PORTABLE REASON FOR STUDY: AMS, low blood sugar x today. Hx of CAD, CHF, COPD, HTN, DM, emphysema TECHNIQUE: Frontal radiographic view(s) of the chest. COMPARISON: 09/03/2024. FINDINGS: LUNGS: Interstitial thickening is noted with opacities most pronounced in the left mid and lower lung. Findings may be due to infection or less likely pulmonary edema, continued follow-up is needed. No significant pleural effusion or pneumothorax. HEART/MEDIASTINUM: Cardiac silhouette normal in size. Mediastinal and hilar contours appear normal. LINES/TUBES: There is the left chest cardiac device with dual leads right atrium and right ventricle. BONES: No acute osseous abnormality. THIS IS AN ELECTRONICALLY VERIFIED FINAL REPORT 10/05/2024 11:29 AM - Electronically signed by Wesly Henderson M.D. CH: JARRETT Report ID: [id number] Reading Location: [id number] Procedure Note Wesly Henderson Jr., MD - 10/05/2024 EXAM DESCRIPTION: XR CHEST SINGLE VIEW PORTABLE REASON FOR STUDY: AMS, low blood sugar x today. Hx of CAD, CHF, COPD, HTN, DM, emphysema TECHNIQUE: Frontal radiographic view(s) of the chest. COMPARISON: 09/03/2024. FINDINGS: LUNGS: Interstitial thickening is noted with opacities most pronounced in the left mid and lower lung. Findings may be due to infection or less likely pulmonary edema, continued follow-up is needed. No significant pleural effusion or pneumothorax. HEART/MEDIASTINUM: Cardiac silhouette normal in size. Mediastinal and hilar contours appear normal. LINES/TUBES: There is the left chest cardiac device with dual leads right atrium and right ventricle. BONES: No acute osseous abnormality. THIS IS AN ELECTRONICALLY VERIFIED FINAL REPORT 10/05/2024 11:29 AM - Electronically signed by Wesly Henderson M.D. CH: JARRETT Report ID: [id number] Reading Location: [id number] IMPRESSION: Interstitial thickening with opacities most pronounced in the left mid and lower lung. Findings may be due to infection or less likely pulmonary edema, continued follow-up is needed. Doug Zuleta MD [facility] ORDERABLES Final Result * (ABNORMAL) Urinalysis w/ Reflex (10/05/2024 11:09 AM CDT) SPECIFIC GRAVITY 1.010 1.003 - 1.030 10/05/2024 12:51 PM CDT [facility] URINE PH 5.0 5.0 - 9.0 10/05/2024 12:51 PM CDT [facility] WBC ESTERASE Negative Negative 10/05/2024 12:51 PM CDT [facility] NITRITE Negative Negative 10/05/2024 12:51 PM CDT [facility] PROTEIN, RANDOM URINE Negative Negative 10/05/2024 12:51 PM CDT [facility] URINE GLUCOSE, QUAL 1000 mg/dL(A) Negative 10/05/2024 12:51 PM CDT [facility] URINE KETONES Negative Negative 10/05/2024 12:51 PM CDT [facility] UROBILINOGEN Normal Normal mg/dL 10/05/2024 12:51 PM CDT [facility] URINE BLOOD Negative Negative gavino/ul 10/05/2024 12:51 PM CDT [facility] URINALYSIS COLOR Yellow 10/06/19 12:51 PM CDT [facility] URINALYSIS CLARITY Clear 10/05/2024 12:51 PM CDT [facility] WBC (Urine) Negative Negative, 0-5 /hpf 10/05/2024 12:51 PM CDT [facility] URINE RBC'S Negative Negative, 0-2 /hpf 10/05/2024 12:51 PM CDT [facility] EPITHELIAL CELLS Large amount squamous /lpf 10/05/2024 12:51 PM CDT [facility] BACTERIA, URINE Negative Negative /hpf 10/05/2024 12:51 PM CDT [facility] Urine URINE SPECIMEN / Unknown Non-Phlebotomy Collection / Unknown 10/05/2024 11:09 AM CDT 10/05/2024 12:27 PM CDT us Doug Zuleta MD URINE ORDERABLES Final Re sult Performing Organization Address City/[facility]/ZIP Co de Phone Number [facility] [address] [place] [address] * Lactic Acid (Lactate) (10/05/2024 10:54 AM CDT) LACTIC ACID 1.5 0.7 - 2.0 mmol/L 10/05/2024 11:32 AM CDT [facility] Blood Venipuncture / Unknown 10/05/2024 10:54 AM CDT 10/05/2024 11:12 AM CDT Doug Zuleta MD CHEMISTRY ORDERABLES Loren l Result Performing Organization Address City/[facility]/ZIP Co de Phone Number [facility] [address] [place] [address] * Blood Culture #2 (10/05/2024 10:53 AM CDT) Only the most recent of2 resultswithin the time period is included. CULTURE RESULTS NO GROWTH WITHIN 5 DAYS, FINAL RESULT 10/10/2024 12:00 PM CDT [facility] Culture BLOOD SPECIMEN / Unknown Venipuncture / Unknown 10/05/2024 10:53 AM CDT 10/05/2024 11:12 AM CDT us Doug Zuleta MD MICROBIOLOGY - GENERAL OR DERABLES Final Result [facility] [address] [place] [address], [place] * CT HEAD OR BRAIN WO CONTRAST (10/05/2024 10:33 AM CDT) Anatomical Region Laterality Modality Head N/A Computed Tomogra phy 10/05/2024 10:5 6 AM CDT Impressions 10/05/2024 10:58 AM CDT IMPRESSION: No acute intracranial process. Narrative 10/05/2024 10:58 AM CDT EXAM DESCRIPTION: CT HEAD OR BRAIN WO CONTRAST REASON FOR STUDY: prior to arrival she began to feel weak and confused and called out to her son as she was feeling off TECHNIQUE: Axial images acquired through the brain without intravenous contrast. Images stored on PACS. Automated exposure control was used as a dose optimization technique for this examination. COMPARISON: 03/16/2024 FINDINGS: No acute intracranial hemorrhage. No evidence of a large vascular territory acute infarction or CT evidence of vasogenic edema. No midline shift or mass effect. The ventricles are normal in size. Brain volume appears within normal limits for patient age. White matter attenuation appears within normal limits. Mild right cerebellar tonsillar ectopia. There is no acute calvarial fracture. Hyperostosis frontalis interna is noted. Status post bilateral lens replacement. Otherwise the orbits are unremarkable. The paranasal sinuses are well aerated. The mastoid air cells are well aerated. THIS IS AN ELECTRONICALLY VERIFIED FINAL REPORT 10/05/2024 10:56 AM - Electronically signed by Drew Sullivan M.D. MM: MM Report ID: [id number] Reading Location: [id number] Procedure Note Drew Sullivan MD - 10/05/2024 EXAM DESCRIPTION: CT HEAD OR BRAIN WO CONTRAST REASON FOR STUDY: prior to arrival she began to feel weak and confused and called out to her son as she was feeling off TECHNIQUE: Axial images acquired through the brain without intravenous contrast. Images stored on PACS. Automated exposure control was used as a dose optimization technique for this examination. COMPARISON: 03/16/2024 FINDINGS: No acute intracranial hemorrhage. No evidence of a large vascular territory acute infarction or CT evidence of vasogenic edema. No midline shift or mass effect. The ventricles are normal in size. Brain volume appears within normal limits for patient age. White matter attenuation appears within normal limits. Mild right cerebellar tonsillar ectopia. There is no acute calvarial fracture. Hyperostosis frontalis interna is noted. Status post bilateral lens replacement. Otherwise the orbits are unremarkable. The paranasal sinuses are well aerated. The mastoid air cells are well aerated. THIS IS AN ELECTRONICALLY VERIFIED FINAL REPORT 10/05/2024 10:56 AM - Electronically signed by Drew Sullivan M.D. MM: MM Report ID: [id number] Reading Location: [id number] IMPRESSION: No acute intracranial process. Doug Zuleta MD IMG CT ORDERABLES Final R esult * Blue Top Tube (10/05/2024 10:19 AM CDT) Blood No Phlebotomy Charged / Unknown 10/05/2024 10:19 AM CDT 10/05/2024 10:34 AM CDT Doug Zuleta MD HEMATOLOGY ORDERABLES Fin al Result [facility] [address] [place] [address] * Magnesium (10/05/2024 10:15 AM CDT) Only the most recent of2 resultswithin the time period is included. MAGNESIUM 2.6 1.6 - 2.6 mg/dL 10/05/2024 11:04 AM CDT [facility] Blood Venipuncture / Unknown 10/05/2024 10:15 AM CDT 10/05/2024 10:35 AM CDT us Doug Zuleta MD CHEMISTRY ORDERABLES Loren l Result [facility] [place] [address] * EKG 12 LEAD (10/05/2024 10:07 AM CDT) Only the most recent of2 resultswithin the time period is included. Ventricular Rate 99 BPM EXTERNAL EKG Atrial Rate 99 BPM EXTERNAL EKG P-R Interval 162 ms EXTERNAL EKG QRS Duration 98 ms EXTERNAL EKG Q-T Duration 364 ms EXTERNAL EKG QTC CALCULATION 467 ms EXTERNAL EKG P [place] 44 degrees EXTERNAL EKG R [place] -25 degrees EXTERNAL EKG T [place] 59 degrees EXTERNAL EKG 10/05/2024 10:0 7 AM CDT Impressions EXTERNAL EKG - 10/06/2024 12:27 PM CDT Sinus rhythm with frequent premature ventricular complexes Nonspecific T wave abnormality Abnormal ECG When compared with ECG of 03-SEP-2024 11:19, Sinus rhythm has replaced Electronic atrial pacemaker Confirmed by Lise Valentin ([id number]) on 10/06/2024 12:27:04 PM Narrative Procedure Note Lise Valentin MD - 10/06/2024 IMPRESSION: Sinus rhythm with frequent premature ventricular complexes Nonspecific T wave abnormality Abnormal ECG When compared with ECG of 03-SEP-2024 11:19, Sinus rhythm has replaced Electronic atrial pacemaker Confirmed by Lise Valentin ([id number]) on 10/06/2024 12:27:04 PM us Doug Zuleta MD IMG ECG ORDERABLES Final Result EXTERNAL EKG * Critical Care (10/05/2024 10:03 AM CDT) Narrative Doug Zuleta MD - 10/05/2024 10:03 AM CDT Doug Zuleta MD 10/05/2024 12:07 PM Critical Care Performed by: Doug Zuleta MD Authorized by: Doug Zuleta MD Critical care provider statement: Critical care time (minutes): 45 Critical care time was exclusive of: Separately billable procedures and treating other patients Critical care was necessary to treat or prevent imminent or life-threatening deterioration of the following conditions: Respiratory failure and sepsis Critical care was time spent personally by me on the following activities: Blood draw for specimens, development of treatment plan with patient or surrogate, discussions with consultants, evaluation of patient's response to treatment, examination of patient, discussions with primary provider, review of old charts, ordering and review of radiographic studies, ordering and review of laboratory studies, ordering and performing treatments and interventions, pulse oximetry, re-evaluation of patient's condition and obtaining history from patient or surrogate Care discussed with: admitting provider Doug Zuleta MD PROCEDURE/MINOR SURGICAL ORDERABLES Final Result * EKG SCAN (10/05/2024 12:00 AM CDT) Only the most recent of2 resultswithin the time period is included. 10/05/2024 us Provider Scan IMG ECG ORDERABLES Final Result Performing Organization Address City/State/[facility] Co de Phone Number RESULTING AGENCY * TROPONIN I, HIGH SENSITIVITY (HSTRP) (09/03/2024 2:19 PM CDT) Only the most recent of2 resultswithin the time period is included. TROPONIN I, HIGH SENSITIVITY- AYALA 5 <=14 ng/L 09/03/2024 3:06 PM CDT [facility] Comment: High-sensitivity troponin I results are reported in ng/L making the result appear to be 1,000 times higher than the contemporary troponin I value which is reported in ng/ml. Results from [facility]. Blood Venipuncture / Unknown 09/03/2024 2:19 PM CDT 09/03/2024 2:33 PM CDT Doug Zuleta MD CHEMISTRY ORDERABLES Loren l Result [facility] [address] [place] [address] * PEGGY-COV-2 Flu RSV - (Quad PCR) (09/03/2024 11:45 AM CDT) FLU A Negative Negative, Error 09/03/2024 12:47 PM CDT [facility] FLU B Negative Negative 09/03/2024 12:47 PM CDT [facility] RESP SYNC VIRUS Negative Negative 12:47 PM CDT [facility] SARSCOV2 NOT DETECTED (Reference Range for this test is Not Detected) 09/03/2024 12:47 PM CDT [facility] Comment:This test was perfor med by a Reverse Director Special Education PCR Method. Swab NASOPHARYNGEAL SWAB / Unknown Non-Phlebotomy Collection / Unknown 09/03/2024 11:45 AM CDT 09/03/2024 12:05 PM CDT us Doug Zuleta MD MICROBIOLOGY - GENERAL OR DERABLES Final Result Performing Organization Address [facility] Co de Phone Number [facility] [address] [place] [address] * (ABNORMAL) Blood Gas, Venous (09/03/2024 11:43 AM CDT) O2 STATUS room air 09/03/2024 11:58 AM CDT [facility] PH VENOUS 7.38 7.34 - 7.43 09/03/2024 11:58 AM CDT [facility] PCO2 (VENOUS) 39(L) 41 - 51 mmHg 09/03/2024 11:58 AM CDT [facility] PO2 VENOUS 139(H) 30 - 50 mmHg 09/03/2024 11:58 AM CDT [facility] O2 SAT JANET, MEASURED 99(H) 60 - 85 % 08/25 11:58 AM CDT [facility] BICARBONATE 23.2 22.0 - 26.0 mmol/L 09/03/2024 11:58 AM T [facility] BASE VENOUS -1.1 -2.0 - 3.0 mmol/L 09/03/2024 11:58 AM CDT [facility] CARBOXYHEMOGLOBIN 1.3 0.0 - 5.0 % 09/03/2024 11:58 AM T [facility] METHEMOGLOBIN 0.4 0.0 - 1.5 % 09/03/2024 11:58 AM [facility] JANET Blood Gas Venipuncture / Unknown 09/03/2024 11:43 AM CDT 09/03/2024 11:55 AM CDT Narrative [facility] - 09/03/2024 11:58 AM CDT Interpretation - The usual approach to interpreting a VBG consists of using the venous measurements to estimate the corresponding arterial values, then using these estimated values for clinical decision-making exactly as if an ABG had been performed. The difference between the venous measurements and the arterial measurements depends upon the site of venous sampling and varies among laboratories. Correlation with arterial blood gases - Although arterial blood gas analysis is more accurate than venous analysis for the assessment of oxygenation, measurement of PCO2, pH, and HCO3 are similar with some minor adjustments: The central venous pH is usually 0.03 to 0.05 pH units lower than the arterial pH and the PCO2 is usually 4 to 5 mmHg higher, with little or no increase in HCO3. Mixed venous blood (ie, SvO2 drawn from a pulmonary artery catheter) gives results similar to central venous blood (ie, ScvO2 drawn from a central venous catheter). The peripheral venous pH is approximately 0.02 to 0.04 pH units lower than the arterial pH, the venous serum HCO3 concentration is approximately 1 to 2 meq/L higher, and the venous PCO2 is approximately 3 to 8 mmHg higher. There are no venous to arterial conversions for ScvO2, SvO2, or peripheral venous oxyhemoglobin saturation (PvO2). Importantly, sufficient variability between arterial and venous blood gas values may exist such that periodic correlation between arterial and venous blood gas values is always prudent. us Doug Zuleta MD CHEMISTRY ORDERABLES Loren l Result Performing Organization Address City/[facility]/ZIP Co de Phone Number [facility] [address] [place] [address] * B-Type Natriuretic Peptide (BNP) (09/03/2024 11:43 AM CDT) B TYPE NATRIURETIC PEPTIDE 44 <100 pg/mL 09/03/2024 12:38 PM CDT [facility] Blood Venipuncture / Unknown 09/03/2024 11:43 AM CDT 09/03/2024 12:05 PM CDT Doug Zuleta MD CHEMISTRY ORDERABLES Loren l Result Performing Organization Address [facility] Co de Phone Number [facility] [address] [place] [address] * Critical Care (09/03/2024 11:26 AM CDT) Narrative Doug Zuleta MD - 09/03/2024 11:26 AM CDT Doug Zuleta MD 09/03/2024 2:12 PM Critical Care Performed by: Doug Zuleta MD Authorized by: Doug Zuleta MD Critical care provider statement: Critical care time (minutes): 45 Critical care time was exclusive of: Separately billable procedures and treating other patients Critical care was necessary to treat or prevent imminent or life-threatening deterioration of the following conditions: Respiratory failure Critical care was time spent personally by me on the following activities: Blood draw for specimens, discussions with consultants, development of treatment plan with patient or surrogate, discussions with primary provider, evaluation of patient's response to treatment, examination of patient, re-evaluation of patient's condition, review of old charts, pulse oximetry, ordering and review of radiographic studies, ordering and review of laboratory studies, ordering and performing treatments and interventions and obtaining history from patient or surrogate Doug Zuleta MD PROCEDURE/MINOR SURGICAL ORDERABLES Final Result * CT CHEST W/O CONTRAST (07/25/2024 12:53 PM HOME CARE ASSISTANT) Anatomical Region Laterality Modality Chest N/A Computed Tomogra phy 07/29/2024 9:10 AM HOME CARE ASSISTANT Impressions 07/29/2024 9:13 AM HOME CARE ASSISTANT IMPRESSION: Mild emphysematous changes with mild generalized [...] fractures. Diffuse osteopenia. Narrative 07/29/2024 9:13 AM HOME CARE ASSISTANT EXAM DESCRIPTION: CT CHEST W/O CONTRAST REASON [...] Jimi Barrera M.D. RB: YOSVANY Report ID: [id number] Reading Location: [id number] Procedure Note Jimi Barrera MD - 07/29/2024 [...] Jimi Barrera M.D. RB: YOSVANY Report ID: [id number] Reading Location: [id number] IMPRESSION: Mild emphysematous changes with mild generalized [...] Multiple old bilateral rib fractures. Diffuse osteopenia. Liz Capellan DO IMG CT ORDERABLES Final Resul t * Stool, Occult Blood, Diagnostic, via Guai[place] (06/02/2023 5:05 PM HOME CARE ASSISTANT) OCCULT BLOOD DIAG Negative Negative 06/02/2023 5:23 PM HOME CARE ASSISTANT [facility] Stool STOOL SPECIMEN / Unknown Non-Phlebotomy Collection / Unknown 06/02/2023 5:05 PM HOME CARE ASSISTANT 06/02/2023 5:08 PM HOME CARE ASSISTANT Maggie Molina MD BODY FLUIDS & STOOLS ORDERABL ES Final Result [facility] [address] [place] [address] * RADHA SCREENING BILATERAL DIGITAL W CAD [...] dated: 11/28/2021, 09/21/2021, 11/30/2020, 11/02/2020, and 08/05/2018 [facility]. BREAST TISSUE:The tissue of both breasts [...] signed by: Cris Sosa M.D. ll/:02/26/2023 19:37:54 Fur Designer(s): RT Jaun(R)(M), [facility] letter sent: Normal Exam Reading location: [place] BI-RADS: 2 Benign Procedure Note Cris Sosa MD - 10/04/2023 - RADHA SCREENING BILATERAL DIGITAL W CAD [...] dated: 11/28/2021, 09/21/2021, 11/30/2020, 11/02/2020, and 08/05/2018 [facility]. BREAST TISSUE:The tissue of both breasts [...] signed by: Cris Sosa M.D. ll/:02/26/2023 19:37:54 Fur Designer(s): RT Jaun(R)(M), [facility] letter sent: Normal Exam Reading location: [facility] BI-RADS: 2 Benign us Keith Craft MD IMG MAMMO ORDERABLES Final Resul t * HEPATITIS C ANTIBODY (12/17/2022 11:39 AM CDT) hepatitis C antibody 0.06 <1 S/CO [facility] ARCH [id number] B 12/17/2022 11:37 PM CDT [facility] Comment: Signal/Cutoff ratio < 0.79 is Nondetected [...] Craft MD CHEMISTRY ORDERABLES Final Resul t Performing Organization Address City/State/[facility] Co de Phone Number [facility] [address] [place] [address], * DIABETIC BILATERAL RETINAL IMAGING WITH COMPUTERIZED [...] Craft MD OUTPT PROCEDURE ORDERABLES Final Result Performing Organization Address City/[facility] Co de Phone Number EXTERNAL EKG DIGITAL DIAGNOSTICS from Last 3 Months or Most Recently Relevant to Health Maintenance Additional Health Concerns Active Problems Noted Date Diagnosed Date [facility] COPD CONCERN 11/09/2024 [facility] HEART FAILURE CONCERNS 11/09/2024 [facility] TYPE 2 DIABETES CONCERN 11/09/2024 [facility] TYPE 2 DIABETES INSULIN - ANALOG PATTERN CO NCERN 11/09/2024 Infection Onset Date Last Indicated Stenotrophomonas maltophilia Comment:Must have a follow up respiratory sample to remove isolation/infection flag. 10/20/2021 10/20/2021 Insurance MEDICARE C [facility] Advance Directives Documents on File Type Date Recorded Patient Tan Room Supervisor Expl anation Power of Operations Dispatcher for Health Care 09/09/2024 10:14 AM POA HC 06/13/2016 Advance Care Planning Discussion 09/19/2022 1:09 PM ACP Discussion Recor d/ 09/19/22 * Full Code (Latest Code Status on File) Date Activated Date Inactivated Comments 10/05/2024 2:45 PM CPR-Full Treat ment: FULL ARREST: Attempt Resuscitation/CPR wit intubation and mechanical ventilation. PRE-ARREST: Use entire range of life support measures to stabilize the patient. * Full Code Date Activated Date Inactivated Comments 09/09/2024 6:51 AM 10/05/2024 2:45 PM * Full Code Date Activated Date Inactivated Comments 08/23/2024 9:22 AM 09/09/2024 6:51 AM CPR-Full Manjinder atment: FULL ARREST: Attempt Resuscitation/CPR wit intubation and mechanical ventilation. PRE-ARREST: Use entire range of life support measures to stabilize the patient. * Full Code Date Activated Date Inactivated Comments 04/28/2024 12:04 AM 08/23/2024 9:22 AM CPR-Full Tr eatment: FULL ARREST: Attempt Resuscitation/CPR wit intubation and mechanical ventilation. PRE-ARREST: Use entire range of life support measures to stabilize the patient. * Full Code Date Activated Date Inactivated Comments 03/23/2024 4:10 PM 04/28/2024 12:04 AM Care Teams Mixer Pigment Relationship Specialty Start Date End Date Liz Capellan L, DO 2 [facility] [address] [place] [address] PCP - General Family Medicine 12/27/23 Quang Locke DO Gastroenterology 01/18/16 [place] [id number] [address] 05/25/21 Werner Swift MD [address] [place] [id number] Consulting Physician Pulmonary Disease 01/30/22 Yasmin Restrepo MD #[address] [address] Consulting Physician Endocrinology 07/20/24 Jose Do MD #[address] [address] Consulting Physician Colon and Rectal Surgery 10/12/24
--- OUTSIDE RECORDS SUMMARY | 2024-12-02 13:25 | XMS_ITS | Encounter Summary ---
Author Organization [facility] Address [address] [place] [address] Phone Care Team Providers Care Family Assessment Worker Name Role Phone Quang Locke Unavailable [phone] Keith Craft MD Primary Care Provider [phone] Bri Rollins RN Unavailable Unavailable Silvio Schulte MD Unavailable [phone] Bri Rollins RN Unavailable Unavailable Werner Swift MD Unavailable Liz Capellan DO Primary Care Provider [phone] Yasmin Restrepo MD Unavailable Jose Do MD Unavailable Reason for Visit * Reason Comments Medication Refill Encounter Details Date Type Department Care Team (Late st Contact Info) Description 10/11/2020 Refill [facility] [address] [place] [address] Keith Craft MD [address] [place] [address] Medication Refill Social History Tobacco [...] hyperlipidemia [facility] - Family [facility] - Keith Jenkins MD 5 months ago Pneumonia of right upper lobe due to infectious organism [facility] - Family Medicine - Keith Jenkins MD 8 months ago Acute non-recurrent maxillary sinusitis [facility] Keith Jenkins MD 11 months ago Chronic prescription opiate use [facility] Keith Jenkins MD Upcoming Appointments Future Appointments Today [facility] months [facility]/MECHANIC - Recent and Past Visits Recent Visits Date Type Provider Dept 10/04/20 Office Visit Keith Craft MD [facility] 06/07/20 Office Visit Keith Craft MD [facility] 04/25/20 Office Visit Keith Craft MD [facility] 02/02/20 Office Visit Keith Craft MD [facility] 11/02/19 Office Visit Keith Craft MD [facility] 07/27/19 Office Visit Keith Craft MD [facility] Showing recent visits within past 460 days with a meds authorizing provider and meeting all other requirements Today's Visits Date Type Provider Dept 10/12/20 Appointment Keith Craft MD [facility] Showing today's visits with a meds authorizing provider and meeting all other requirements Future Appointments Date Type Provider Dept 01/04/21 Appointment Keith Craft MD [facility] Showing future appointments within next 90 days with a meds authorizing provider and meeting all other requirements Passed - Last BP in normal range BP Readings from Last 1 Encounters: 10/04/20 98/48 documented in this encounter Plan of Treatment Upcoming Encounters Date Type Department Care Team (Late st Contact Info) Description 12/04/2024 12:45 PM CDT Office Visit [facility] [address] [place] [address] Ghazala, Ana N, DIRECTOR OUTPATIENT SERVICES, EDITORIAL SPECIALIST [address] [facility] [address] 12/09/2024 11:15 AM CDT Office [facility] - General Surgery - [place] [address] [place] [address] Jose Do MD [facility]2 [facility] [address] [address] 01/04/2025 1:30 PM CDT Office Visit [facility] - Pulmonology & Sleep Medicine - [place] [address] [facility] [place] [address] Werner Swift MD [address] [facility] [place] [address] 03/01/2025 1:30 PM CDT Office Visit [facility] - Endocrinology - [place] [address] [place] [address] Yasmin Restrepo MD [address]2 [facility] [address] [address] 05/13/2025 1:20 PM INFANT CAREGIVER Office Visit [facility] Family Medicine - [place] [address] [place] [address] Liz Capellan, DO [address] [facility] [address] documented as of this encounter Visit Diagnoses Not on filedocumented in this encounter Additional Health Concerns Infection Onset Date Last Indicated Resolved Time COVID - 19 01/25/2021 01/25/2021 01/31/2021 8:10 AM CDT Respiratory Rule Out - RPA 01/30/2021 01/30/2021 0 02/01/2021 12:45 AM CDT COVID - 19 07/23/2021 07/23/2021 07/24/2021 6:31 AM INFANT CAREGIVER COVID - 19 10/19/2021 10/19/2021 10/20/2021 7:45 AM CDT Respiratory Rule Out - RPA 10/19/2021 10/19/2021 0 10/20/2021 2:10 PM CDT Stenotrophomonas maltophilia Comment:Must have a follow up respiratory sample to remove isolation/infection flag. 10/20/2021 10/20/2021 COVID - 19 04/20/2022 04/20/2022 04/30/2022 12:1 8 AM INFANT CAREGIVER COVID - 19 07/18/2022 07/18/2022 07/28/2022 12:1 6 AM INFANT CAREGIVER COVID - 19 08/21/2022 08/21/2022 08/22/2022 8:31 AM CDT Respiratory Rule Out - RPA 08/21/2022 08/21/2022 0 08/22/2022 3:21 PM CDT COVID - 19 04/18/2023 04/18/2023 04/28/2023 12:1 6 AM INFANT CAREGIVER COVID - 19 07/13/2023 07/13/2023 07/23/2023 12:1 6 AM INFANT CAREGIVER Respiratory Rule Out - RPA 03/17/2024 03/17/2024 1 3:36 PM CDT COVID - 19 04/27/2024 04/27/2024 04/27/2024 2:19 PM INFANT CAREGIVER Respiratory Rule-Out 07/24/2024 07/24/2024 025 2:29 PM INFANT CAREGIVER COVID - 19 07/24/2024 07/24/2024 07/24/2024 2:29 PM INFANT CAREGIVER COVID - 19 08/22/2024 08/22/2024 08/22/2024 11:4 6 PM CDT COVID - 19 09/03/2024 09/03/2024 09/03/2024 12:4 7 PM CDT Assessment Noted Time PHQ-9 Depression Total Score: 2 06/07/19 21 2:34 PM INFANT CAREGIVER documented as of this encounter Care Teams Family Assessment Worker Relationship Specialty Start Date End Date Keith Craft MD PCP - General Family Medicine 01/14/19 12/26/23 Liz Capellan DO 2 [facility] [address] [place] [address] PCP - General Family Medicine 12/27/23 Quang Locke DO Gastroenterology 01/18/16 Bri Rollins, RN [place] Family Literacy Coordinator 03/07/21 05/22/23 [place] [address] [address] 05/25/21 Bri Rollins, RN [place] Nurse Family Literacy Coordinator 03/07/21 05/23/23 Werner Swift MD [address] [place] [phone] Consulting Physician Pulmonary Disease 01/30/22 Yasmin Restrepo MD #[address] [address] Consulting Physician Endocrinology 07/20/24 Jose Do MD #2 [facility] [address] [place] [address] Consulting Physician Colon and Rectal Surgery 10/12/24 documented as of this encounter
--- OUTSIDE RECORDS SUMMARY | 2024-12-02 13:25 | XMS_ITS | Encounter Summary ---
Author Organization [facility] Address [address] [place] [address] Phone Care Team Providers Care Box Tender Name Role Phone Quang Locke Unavailable [phone] Keith Craft MD Primary Care Provider [phone] Bri Rollins RN Unavailable Unavailable Silvio Schulte MD Unavailable [phone] Bri Rollins RN Unavailable Unavailable Werner Swift MD Unavailable Liz Capellan DO Primary Care Provider [phone] Yasmin Restrepo MD Unavailable Jose Do MD Unavailable Reason for Visit * Reason Comments Medication Refill Encounter Details Date Type Department Care Team (Late st Contact Info) Description 11/29/2022 Refill [facility] Medical Group - Family Medicine [facility] #2 [place] [address] Keith Craft MD #1 [place] [address] Medication Refill Social History Tobacco Use Types [...] Osamado Tesfaye 07/18/22 Office Visit Kerri Kauffman, ORDER DESK CLERK, EMERGENCY RESPONSE COORDINATOR [facility] 06/07/22 Office Visit Keith Craft MD [...] Refused Prescriptions Disp Refills ergocalciferol (VITAMIN D) 49107 UNIT Capsule [Pharmacy Med Name: VITAMIN D [id number] CAPSULE] 12 Capsule 0 Sig: TAKE ONE CAPSULE BY MOUTH ONE TIME WEEKLY Vitamin Supplements (Adult) Protocol Failed - 11/29/2022 11:57 AM Failed - Active on medication list Failed - Vitamin D less than 1.25mg Passed - Visit with relevant provider in past 12 months or upcoming 90 days Recent Visits Date Type Provider Dept 09/10/22 Office [facility] 07/18/22 Office Visit Kerri Kauffman, ORDER DESK CLERK, EMERGENCY RESPONSE COORDINATOR [facility] 06/07/22 Office Visit Keith Craft MD [facility] 03/02/22 Procedure Visit [facility] 03/02/22 Office Visit Keith Craft [facility] Showing recent visits within past 365 days and meeting all other requirements Future Appointments Date Type Provider Dept 12/10/22 Appointment Keith Craft MD [facility] Showing future appointments within next 90 days and meeting all other requirements * Telephone Encounter - Gloria Cornejo RN - 11/30/2022 8:21 AM CDT Name from pharmacy: VITAMIN D [id number] CAPSULE Will file in chart as: ergocalciferol (VITAMIN D) 31004 UNIT Capsule The original prescription was discontinued on 11/01/2022 by Keith Craft MD documented in this encounter Plan of Treatment Upcoming Encounters Date Type Department Care Team (Late st Contact Info) Description 12/04/2024 12:45 PM CDT Office Visit [facility] Medical Group - Family Medicine - [place] #2 [facility] [place] [address] Ana Vivar, ORDER DESK CLERK, EMERGENCY RESPONSE COORDINATOR 2 [facility] [address] [place] [address] 12/09/2024 11:15 AM CDT Office Visit [facility] General Surgery - [place] #[address] [address] Jose Do MD #[address] [address] 01/04/2025 1:30 PM CDT Office Visit [facility] - Pulmonology & Sleep Medicine - [place] #2 [place] [address] Werner Swift MD #2 [place] [address] 03/01/2025 1:30 PM CDT Office Visit [facility] Endocrinology - [place] #2 [place] [address] Yasmin Restrepo MD #[address] [address] 05/13/2025 1:20 PM FIGHTER PILOT Office Visit [facility] Family Medicine - [place] #2 [place] [address] Liz Capellan, DO [address] [id number] documented as of this encounter Goals Goal [...] Zones/Action plan education. I will notify my Thermal Cutter Helper if my symptoms fall in the [...] 19 04/18/2023 04/18/2023 04/28/2023 12:1 6 AM FIGHTER PILOT COVID - 19 07/13/2023 07/13/2023 07/23/2023 12:1 6 AM FIGHTER PILOT Respiratory Rule Out - RPA 03/17/2024 03/17/2024 1 3:36 PM CDT COVID - 19 04/27/2024 04/27/2024 04/27/2024 2:19 PM FIGHTER PILOT Respiratory Rule-Out 07/24/2024 07/24/2024 025 2:29 PM FIGHTER PILOT COVID - 19 07/24/2024 07/24/2024 07/24/2024 2:29 PM FIGHTER PILOT COVID - 19 08/22/2024 08/22/2024 08/22/2024 11:4 6 PM CDT COVID - 19 09/03/2024 09/03/2024 09/03/2024 12:4 7 PM CDT Assessment Noted Time PHQ-9 Depression Total Score: 1 03/07/20 21 10:29 AM CDT documented as of this encounter Care Teams Box Tender Relationship Specialty Start Date End Date Keith Craft MD PCP - General Family Medicine 01/14/19 12/26/23 Liz Capellan DO 2 [facility] [address] [place] [address] PCP - General Family Medicine 12/27/23 Quang Locke DO Gastroenterology 01/18/16 Bri Rollins, RN [place] Thermal Cutter Helper 03/07/21 05/22/23 [place] [id number] [address] 05/25/21 Bri Rollins, RN [place] Nurse Thermal Cutter Helper 03/07/21 05/23/23 Werner Swift MD #2 [place] [address] Consulting Physician Pulmonary Disease 01/30/22 Yasmin Restrepo MD #[address] [address] Consulting Physician Endocrinology 07/20/24 Jose Do MD #[address] [address] Consulting Physician Colon and Rectal Surgery 10/12/24 documented as of this encounter
--- OUTSIDE RECORDS SUMMARY | 2024-12-02 13:26 | XMS_ITS | Encounter Summary ---
Author Organization [facility] Address [address] [place] [address] Phone Care Team Providers Care Thermite Welder Name Role Phone Quang Locke DO Unavailable [phone] Keith Craft MD Primary Care Provider [phone] Silvio Schulte MD Unavailable [phone] Werner Swift MD Unavailable Liz Capellan DO Primary Care Provider [phone] Yasmin Restrepo MD Unavailable Jose Do MD Unavailable Reason for Visit * Reason Comments Medication Refill Encounter Details Date Type Department Care Team (Late st Contact Info) Description 09/23/2023 Refill [facility] Medical Group - Family Medicine [facility] #2 [place] [address] Keith Craft MD #1 [place] [address] Medication Refill Social History Tobacco Use Types Packs/Day Years Used Date Smoking Tobacco: Former Cigarettes 2 50 1 - 03/16/2018 Smokeless Tobacco: Never Comments:Still uses nictoine patches and gum Alcohol Use Standard Drinks/Week Comments No 0 (1 standard drink = 0.6 oz pur e alcohol) [facility] Utilities Answer Date Recorded In [...] often do you attend chur ch or mu-ism services? Never 07/13/2023 Do you belong to [...] Total Score - Questions 1-9 0 08/2021 [facility] [place] of Occupat ional Health - Occupational Stress [...] 12:45 PM CDT Office Visit [facility] [place] #2 [facility] [place] [address] Ana Vivar, NETWORK INTERNSHIP, SENSOR SPECIALIST 2 [facility] [address] [place] [address] 12/09/2024 11:15 AM CDT Office Visit [facility] General Surgery - [place] #2 [facility] [address] [place] [address] Jose Do MD #[address] [address] 01/04/2025 1:30 PM CDT Office Visit [facility] - Pulmonology & Sleep Medicine - [place] #2 [place] [address] Werner Swift MD #2 [place] [address] 03/01/2025 1:30 PM CDT Office Visit [facility] Endocrinology - [place] #2 [place] [address] Yasmin Restrepo MD #[address] [place] [address] 05/13/2025 1:20 PM ENVIRONMENTAL LABORATORY TECHNICIAN Office Visit [facility] Family [facility] [place] #2 [facility] [place] [address] Liz Capellan, DO 2 [facility] [address] [place] [address] documented as of this encounter Goals Goal [...] Zones/Action plan education. I will notify my Jig And Fixture Repairer if my symptoms fall in the y ellow zone . I will consider receiving an influenza and pneumonia vaccination, if applicable. -I will call the office if I experience any symptoms listed above to discuss at home management options. documented as of this encounter Visit Diagnoses Diagnosis Type 2 diabetes mellitus with diabetic neuropathy, with long-term current use of insulin ([facility]) documented in this encounter Additional Health Concerns Infection Onset Date Last Indicated Resolved Time Stenotrophomonas maltophilia Comment:Must have a follow up respiratory sample to remove isolation/infection flag. 10/20/2021 10/20/2021 Respiratory Rule Out - RPA 03/17/2024 03/17/2024 1 3:36 PM CDT COVID - 19 04/27/2024 04/27/2024 04/27/2024 2:19 PM ENVIRONMENTAL LABORATORY TECHNICIAN Respiratory Rule-Out 07/24/2024 07/24/2024 025 2:29 PM ENVIRONMENTAL LABORATORY TECHNICIAN COVID - 19 07/24/2024 07/24/2024 07/24/2024 2:29 PM ENVIRONMENTAL LABORATORY TECHNICIAN COVID - 19 08/22/2024 08/22/2024 08/22/2024 11:4 6 PM CDT COVID - 19 09/03/2024 09/03/2024 09/03/2024 12:4 7 PM CDT Assessment Noted Time PHQ-9 Depression Total Score: 1 03/07/20 21 10:29 AM CDT documented as of this encounter Care Teams Thermite Welder Relationship Specialty Start Date End Date Keith Craft MD PCP - General Family Medicine 01/14/19 12/26/23 Liz Capellan DO [address] [address] PCP - General Family Medicine 12/27/23 Quang Locke DO Gastroenterology 01/18/16 [place] [id number] [address] 05/25/21 Werner Swift MD #2 [place] [address] Consulting Physician Pulmonary Disease 01/30/22 Yasmin Restrepo MD #[address] [address] Consulting Physician Endocrinology 07/20/24 Jose Do MD #[address] [address] Consulting Physician Colon and Rectal Surgery 10/12/24 documented as of this encounter
--- OUTSIDE RECORDS SUMMARY | 2024-12-02 13:26 | XMS_ITS | Encounter Summary ---
Author Organization [facility] Address [address] [place] [address] Phone Care Team Providers Care Manager Retention Name Role Phone Quang Locke DO Unavailable [phone] Keith Craft MD Primary Care Provider [phone] Silvio Schulte MD Unavailable [phone] Werner Swift MD Unavailable Liz Capellan DO Primary Care Provider [phone] Yasmin Restrepo MD Unavailable Jose Do MD Unavailable Reason for Visit * Reason Comments Medication Refill Encounter Details Date Type Department Care Team (Late st Contact Info) Description 09/25/2023 Refill [facility] #2 [place] [address] Keith Craft MD #1 [place] [address] Medication Refill Social History Tobacco Use Types [...] any clubs o r organizations such as scientologist groups, unions, fraternal or athletic groups, or [...] Total Score - Questions 1-9 0 08/2021 [facility] [place] of Occupat ional Health - Occupational Stress [...] Office Visit [facility] Family [facility] [place] #2 [facility] [place] [address] Ana Vivar APRN, IMAGE CONSULTANT 2 [facility] [address] [place] [address] 12/09/2024 11:15 AM CDT [facility] [place] #2 [facility] [address] [place] [address] Jose Do MD #2 [facility] [address] [place] [address] 01/04/2025 1:30 PM CDT Office Visit [facility] - Pulmonology & Sleep Medicine - [place] #2 [place] [address] Werner Swift MD #2 [place] [address] 03/01/2025 1:30 PM CDT Office Visit [facility] Endocrinology - [place] #2 [place] [address] Yasmin Restrepo MD #[address] [address] 05/13/2025 1:20 PM PHYSICS AND ASTRONOMY PROFESSOR Office Visit [facility] Family [facility] [place] #2 [place] [address] Liz Capellan, DO 2 [facility] [address] [place] [address] documented as of this encounter Goals Goal [...] Zones/Action plan education. I will notify my Embroidery Cutter if my symptoms fall in the [...] - 19 04/27/2024 04/27/2024 04/27/2024 2:19 PM PHYSICS AND ASTRONOMY PROFESSOR Respiratory Rule-Out 07/24/2024 07/24/2024 025 2:29 PM PHYSICS AND ASTRONOMY PROFESSOR COVID - 19 07/24/2024 07/24/2024 07/24/2024 2:29 PM PHYSICS AND ASTRONOMY PROFESSOR COVID - 19 08/22/2024 08/22/2024 08/22/2024 11:4 6 PM CDT COVID - 19 09/03/2024 09/03/2024 09/03/2024 12:4 7 PM CDT Assessment Noted Time PHQ-9 Depression Total Score: 1 03/07/20 21 10:29 AM CDT documented as of this encounter Care Teams Manager Retention Relationship Specialty Start Date End Date Keith Craft MD PCP - General Family Medicine 01/14/19 12/26/23 Liz Capellan DO [address] [address] PCP - General Family Medicine 12/27/23 Quang Locke DO Gastroenterology 01/18/16 [place] [address] [address] 05/25/21 Werner Swift MD #2 [place] [address] Consulting Physician Pulmonary Disease 01/30/22 Yasmin Restrepo MD #[address] [address] Consulting Physician Endocrinology 07/20/24 Jose Do MD #[address] [address] Consulting Physician Colon and Rectal Surgery 10/12/24 documented as of this encounter
--- OUTSIDE RECORDS SUMMARY | 2024-12-02 13:26 | XMS_ITS | Encounter Summary ---
Author Organization [facility] Address [address] [place] [address] Phone Care Team Providers Care Business Intelligence Director Name Role Phone Quang Locke DO Unavailable [phone] Keith Craft MD Primary Care Provider [phone] Silvio Schulte MD Unavailable [phone] Werner Swift MD Unavailable Liz Capellan DO Primary Care Provider [phone] Yasmin Restrepo MD Unavailable Jose Do MD Unavailable Reason for Visit * Reason Comments Medication Refill Encounter Details Date Type Department Care Team (Late st Contact Info) Description 10/08/2023 [facility] [address] [place] [address] Werner Swift MD #2 [place] [address] Medication Refill Social History Tobacco Use Types Packs/Day Years Used Date Smoking Tobacco: Former Cigarettes 2 50 1 - 03/16/2018 Smokeless Tobacco: Never Comments:Still uses nictoine patches and gum Alcohol Use Standard Drinks/Week Comments No 0 (1 standard drink = 0.6 oz pur e alcohol) [facility] Utilities Answer Date Recorded In the [...] Score - Questions 1-9 0 /0 08/2021 [facility] [place] of Occupat ional Health - Occupational Stress [...] Description 12/04/2024 12:45 PM CDT Office Visit [facility] Family [facility] [place] #2 [facility] [address] Ana Vivar, LEG BREAKER, AREA FIELD PERSON [address] [place] [address] 12/09/2024 11:15 AM CDT Office Visit [facility] General Surgery - [place] #[address] [place] [address] Jose Do MD #[address] [address] 01/04/2025 1:30 PM CDT Office Visit [facility] - Pulmonology & Sleep Medicine - [place] #2 [facility] [place] [address] Werner Swift MD #2 [place] [address] 03/01/2025 1:30 PM CDT Office Visit [facility] Endocrinology - [place] #2 [facility] [place] [address] Yasmin Restrepo MD #[address] [place] [address] 05/13/2025 1:20 PM SHANK STITCHER Office Visit [facility] Family [facility] #2 [facility] [address] Liz Capellan, DO [address] [place] [address] documented as of this encounter Goals Goal [...] Zones/Action plan education. I will notify my Hatchery Supervisor if my symptoms fall in the [...] - 19 04/27/2024 04/27/2024 04/27/2024 2:19 PM SHANK STITCHER Respiratory Rule-Out 07/24/2024 07/24/2024 025 2:29 PM SHANK STITCHER COVID - 19 07/24/2024 07/24/2024 07/24/2024 2:29 PM SHANK STITCHER COVID - 19 08/22/2024 08/22/2024 08/22/2024 11:4 6 PM CDT COVID - 19 09/03/2024 09/03/2024 09/03/2024 12:4 7 PM CDT Assessment Noted Time PHQ-9 Depression Total Score: 1 03/07/20 21 10:29 AM CDT documented as of this encounter Care Teams Business Intelligence Director Relationship Specialty Start Date End Date Keith Craft MD PCP - General Family Medicine 01/14/19 12/26/23 Liz Capellan DO 2 [facility] [address] [place], [place] [address] PCP - General Family Medicine 12/27/23 Quang Locke DO Gastroenterology 01/18/16 [place] [address] [address] 05/25/21 Werner Swift MD #2 [place] [address] Consulting Physician Pulmonary Disease 01/30/22 Yasmin Restrepo MD #[address] [address] Consulting Physician Endocrinology 07/20/24 Jose Do MD #[address] [address] Consulting Physician Colon and Rectal Surgery 10/12/24 documented as of this encounter
--- OUTSIDE RECORDS SUMMARY | 2024-12-02 13:26 | XMS_ITS | Encounter Summary ---
Author Organization [facility] Address [address] [place] [address] Phone Care Team Providers Care Head Charrer Name Role Phone Quang Locke DO Unavailable [phone] Keith Craft MD Primary Care Provider [phone] Silvio Schulte MD Unavailable [phone] Werner Swift MD Unavailable Liz Capellan DO Primary Care Provider [phone] Yasmin Restrepo MD Unavailable Jose Do MD Unavailable Reason for Visit * Reason Comments Medication Refill Encounter Details Date Type Department Care Team (Late st Contact Info) Description 10/08/2023 Refill [facility] Medical Group - Family Medicine [facility] #2 [place] [address] Keith Craft MD #1 [place] [address] Medication Refill Social History Tobacco Use Types [...] often do you attend chur ch or lutheran services? Never 07/13/2023 Do you belong to [...] Total Score - Questions 1-9 0 08/2021 [facility] [place] of Occupat ional Health - Occupational Stress [...] [place] 12/10/22 Office Visit Keith [facility] Showing recent visits within past 365 days and meeting all other requirements Future Appointments Date Type Provider Dept 12/20/23 Appointment Keith Craft MD [facility] Showing future appointments within next 90 days and meeting all other requirements documented in this encounter Plan of Treatment Upcoming Encounters Date Type Department Care Team (Late st Contact Info) Description 12/04/2024 12:45 PM CDT Office Visit [facility] Medical [facility] - Family Medicine - [place] #2 [place] [address] Ana Vivar, FIREARMS SALES ASSOCIATE, SENIOR WEB APPLICATIONS DEVELOPER 2 [facility] [address] [place] [address] 12/09/2024 11:15 AM CDT Office Visit [facility] Medical [facility] - General Surgery - [place] #2 [facility] [address] [place] [address] Jose Do MD #[address] [facility] [address] [place] [address] 01/04/2025 1:30 PM CDT Office Visit [facility] Medical [facility] - Pulmonology & Sleep Medicine - [place] #2 [place] [address] Werner Swift MD #2 [place] [address] 03/01/2025 1:30 PM CDT Office Visit [facility] - Endocrinology - [place] #2 [place] [address] Yasmin Restrepo MD #[address] [address] 05/13/2025 1:20 PM UPPER TIER Office Visit [facility] - Family Medicine [facility] #2 [place] [address] Liz Capellan, DO 2 [facility] [address] [place] [address] documented as of this encounter Goals Goal [...] Zones/Action plan education. I will notify my Epic Specialist if my symptoms fall in the [...] - 19 04/27/2024 04/27/2024 04/27/2024 2:19 PM UPPER TIER Respiratory Rule-Out 07/24/2024 07/24/2024 025 2:29 PM UPPER TIER COVID - 19 07/24/2024 07/24/2024 07/24/2024 2:29 PM UPPER TIER COVID - 19 08/22/2024 08/22/2024 08/22/2024 11:4 6 PM CDT COVID - 19 09/03/2024 09/03/2024 09/03/2024 12:4 7 PM CDT Assessment Noted Time PHQ-9 Depression Total Score: 1 03/07/20 21 10:29 AM CDT documented as of this encounter Care Teams Head Charrer Relationship Specialty Start Date End Date Keith Craft MD PCP - General Family Medicine 01/14/19 12/26/23 Liz Capellan DO [address] [address] PCP - General Family Medicine 12/27/23 Quang Locke DO Gastroenterology 01/18/16 [place] [address] [address] 05/25/21 Werner Swift MD #2 [place] [address] Consulting Physician Pulmonary Disease 01/30/22 Yasmin Restrepo MD #[address] [address] Consulting Physician Endocrinology 07/20/24 Jsoe Do MD #[address] [address] Consulting Physician Colon and Rectal Surgery 10/12/24 documented as of this encounter
--- OUTSIDE RECORDS SUMMARY | 2024-12-02 13:26 | XMS_ITS | Encounter Summary ---
Author Organization [facility] Address [address] [place] [address] Phone Care Team Providers Care Thermal Intelligence Analyst Name Role Phone Quang Locke DO Unavailable [phone] Keith Craft MD Primary Care Provider [phone] Silvio Schulte MD Unavailable [phone] Werner Swift MD Unavailable Liz Capellan DO Primary Care Provider [phone] Yasmin Restrepo MD Unavailable Jose Do MD Unavailable Reason for Visit * Reason Comments Medication Refill Encounter Details Date Type Department Care Team (Late st Contact Info) Description 10/28/2023 [facility]ill [facility] #2 [place] [address] Keith Craft MD #1 [place] [address] Medication Refill Social History Tobacco Use Types Packs/Day Years Used Date Smoking Tobacco: Former Cigarettes 2 50 1 - 03/16/2018 Smokeless Tobacco: Never Comments:Still uses nictoine patches and gum Alcohol Use Standard Drinks/Week Comments No 0 (1 standard drink = 0.6 oz pur e alcohol) [facility] Utilities Answer Date Recorded In the past [...] Total Score - Questions 1-9 0 08/2021 [facility] [place] of Occupat ional Health - Occupational Stress [...] Upcoming with Venancio in November - NOT Venancio panel approved - needs ASH with another [...] Description 12/04/2024 12:45 PM CDT Office Visit [facility] Medical [facility] - Family Medicine - [place] #2 [place] [address] Ana Vivar, TOOLROOM KEEPER, CMA OR LPN 2 [facility]. [address] [place] [address] 12/09/2024 11:15 AM CDT Office Visit [facility] - General Surgery - [place] #2 [facility] 305 [place] [address] Jose Do MD #[address] [facility] [address] [address] 01/04/2025 1:30 PM CDT Office Visit [facility] - Pulmonology & Sleep Medicine - [place] #2 [place] [address] Werner Swift MD #2 [place] [address] 03/01/2025 1:30 PM CDT Office Visit [facility] - Endocrinology - [place] #2 [place] [address] Yasmin Restrepo MD #[address] [address] 05/13/2025 1:20 PM SUPERVISOR GAS METER REPAIR Office Visit [facility] Family Medicine - [place] #2 [place] [address] Liz Capellan, DO [address] [address] documented as of this encounter Goals Goal [...] Zones/Action plan education. I will notify my Tank Cleaner if my symptoms fall in the [...] 19 04/27/2024 04/27/2024 04/27/2024 2:19 PM SUPERVISOR GAS METER REPAIR Respiratory Rule-Out 07/24/2024 07/24/2024 025 2:29 PM SUPERVISOR GAS METER REPAIR COVID - 19 07/24/2024 07/24/2024 07/24/2024 2:29 PM SUPERVISOR GAS METER REPAIR COVID - 19 08/22/2024 08/22/2024 08/22/2024 11:4 6 PM CDT COVID - 19 09/03/2024 09/03/2024 09/03/2024 12:4 7 PM CDT Assessment Noted Time PHQ-9 Depression Total Score: 1 03/07/20 21 10:29 AM CDT documented as of this encounter Care Teams Thermal Intelligence Analyst Relationship Specialty Start Date End Date Keith Craft MD PCP - General Family Medicine 01/14/19 12/26/23 Liz Capellan DO 2 [place] [address] PCP - General Family Medicine 12/27/23 Quang Locke DO Gastroenterology 01/18/16 [place] [address] [address] 05/25/21 Werner Swift MD #2 [place] [address] Consulting Physician Pulmonary Disease 01/30/22 Yasmin Restrepo MD #[address] [address] Consulting Physician Endocrinology 07/20/24 Jose Do MD #[address] [id number] Consulting Physician Colon and Rectal Surgery 10/12/24 documented as of this encounter
--- OUTSIDE RECORDS SUMMARY | 2024-12-02 13:26 | XMS_ITS | Encounter Summary ---
Author Organization [facility] Address [address] [place] [address] Phone Care Team Providers Care Silver Chaser Name Role Phone Quang Locke DO Unavailable [phone] Keith Craft MD Primary Care Provider [phone] Silvio Schulte MD Unavailable [phone] Werner Swift MD Unavailable Liz Capellan DO Primary Care Provider [phone] Yasmin Restrepo MD Unavailable Jose Do MD Unavailable Reason for Visit * Reason Comments Medication Refill Encounter Details Date Type Department Care Team (Late st Contact Info) Description 09/04/2023 Refill [facility] #2 [place] [address] Keith Craft MD #1 [place] [address] Medication Refill Social History Tobacco Use Types Packs/Day Years Used Date Smoking Tobacco: Former Cigarettes 2 50 1 - 03/16/2018 Smokeless Tobacco: Never Comments:Still uses nictoine patches and gum Alcohol Use Standard Drinks/Week Comments No 0 (1 standard drink = 0.6 oz pur e alcohol) [facility] Utilities Answer Date Recorded In the past [...] often do you attend chur ch or denominational services? Never 07/13/2023 Do you belong to [...] Total Score - Questions 1-9 0 08/2021 [facility] [place] of Occupat ional Health - Occupational Stress [...] 30 120 Tablet Keith Craft MD [facility] Bet... documented in this encounter Plan of Treatment Upcoming Encounters Date Type Department Care Team (Late st Contact Info) Description 12/04/2024 12:45 PM CDT Office Visit [facility] #2 [place] [address] Ana Vivar APRN, THIRD MILLER 2 [facility] [address] [place] [address] 12/09/2024 11:15 AM CDT Office Visit [facility] General Surgery - [place] #[address] [place] [address] Jose Do MD #[address] [place] [address] 01/04/2025 1:30 PM CDT Office Visit [facility] - Pulmonology & Sleep Medicine - [place] #2 [facility] [place] [address] Werner Swift MD #2 [place] [address] 03/01/2025 1:30 PM CDT Office Visit [facility] Endocrinology - [place] #2 [facility] [place] [address] Yasmin Restrepo MD #[address] [place] [address] 05/13/2025 1:20 PM SKIN PEELING MACHINE OPERATOR Office Visit [facility] #2 [place] [address] Liz Capellan, DO 2 [facility] [address] [place] [address] documented as of this encounter Goals Goal [...] Zones/Action plan education. I will notify my Section Gang if my symptoms fall in the y [...] - 19 04/27/2024 04/27/2024 04/27/2024 2:19 PM SKIN PEELING MACHINE OPERATOR Respiratory Rule-Out 07/24/2024 07/24/2024 025 2:29 PM SKIN PEELING MACHINE OPERATOR COVID - 19 07/24/2024 07/24/2024 07/24/2024 2:29 PM SKIN PEELING MACHINE OPERATOR COVID - 19 08/22/2024 08/22/2024 08/22/2024 11:4 6 PM CDT COVID - 19 09/03/2024 09/03/2024 09/03/2024 12:4 7 PM CDT Assessment Noted Time PHQ-9 Depression Total Score: 1 03/07/20 21 10:29 AM CDT documented as of this encounter Care Teams Silver Chaser Relationship Specialty Start Date End Date Keith Craft MD PCP - General Family Medicine 01/14/19 12/26/23 Liz Capellan DO 2 [facility] 205 [place], [place] [id number] PCP - General Family Medicine 12/27/23 Quang Locke DO Gastroenterology 01/18/16 [place] [address] [address] 05/25/21 Werner Swift MD #2 [place] [address] Consulting Physician Pulmonary Disease 01/30/22 Yasmin Restrepo MD #[address] [address] Consulting Physician Endocrinology 07/20/24 Jose Do MD #[address] [id number] Consulting Physician Colon and Rectal Surgery 10/12/24 documented as of this encounter
--- OUTSIDE RECORDS SUMMARY | 2024-12-02 13:26 | XMS_ITS | Encounter Summary ---
Author Organization [facility] Address [address] [place] [address] Phone Care Team Providers Care Comsec Manager Name Role Phone Quang Locke Unavailable [phone] Keith Craft MD Primary Care Provider [phone] Bri Rollins RN Unavailable Unavailable Silvio Schulte MD Unavailable Bri Rollins RN Unavailable Unavailable Werner Swift MD Unavailable Liz Capellan DO Primary Care Provider [phone] Yasmin Restrepo MD Unavailable Jose Do MD Unavailable Reason for Visit * Reason Comments Medication Refill Encounter Details Date Type Department Care Team (Late st Contact Info) Description 12/24/2022 Refill [facility] #2 [place] [address] Keith Craft MD #1 [place] [address] Medication Refill Social History Tobacco Use Types [...] PM CDT Name from pharmacy: VITAMIN D 60636MSA CAPSULE Will file in chart as: ergocalciferol (VITAMIN D) 32713 UNIT Capsule The original prescription was discontinued on 11/01/2022 by Keith Craft MD documented in this encounter Plan of Treatment Upcoming Encounters Date Type Department Care Team (Late st Contact Info) Description 12/04/2024 12:45 PM CDT Office Visit [facility] - Family Medicine - [place] #2 [place] [address] Ana Vivar, REBECCA, BASEBOARD HEATING INSTALLER 2 [facility] [place]. [address] [place] [address] 12/09/2024 11:15 AM CDT Office Visit [facility] - General Surgery - [place] #2 [facility] [address] [place] [address] Jose Do MD #2 [facility] [address] [place] [address] 01/04/2025 1:30 PM CDT Office Visit [facility] - Pulmonology & Sleep Medicine - [place] #2 [place] [address] Werner Swift MD #2 [facility] [place] [address] 03/01/2025 1:30 PM CDT Office Visit [facility] Endocrinology - [place] #2 [place] [address] Yasmin Restrepo MD #2 [facility] [address] [place] [address] 05/13/2025 1:20 PM MATERIAL STOCKKEEPER YARD Office Visit [facility] Family Medicine - [place] #2 [place] [address] Liz Capellan, DO [address] [address] documented as of this encounter Goals Goal [...] Zones/Action plan education. I will notify my Street Railway Line Installer if my symptoms fall in the [...] 19 04/18/2023 04/18/2023 04/28/2023 12:1 6 AM MATERIAL STOCKKEEPER YARD COVID - 19 07/13/2023 07/13/2023 07/23/2023 12:1 6 AM MATERIAL STOCKKEEPER YARD Respiratory Rule Out - RPA 03/17/2024 03/17/2024 1 3:36 PM CDT COVID - 19 04/27/2024 04/27/2024 04/27/2024 2:19 PM MATERIAL STOCKKEEPER YARD Respiratory Rule-Out 07/24/2024 07/24/2024 025 2:29 PM MATERIAL STOCKKEEPER YARD COVID - 19 07/24/2024 07/24/2024 07/24/2024 2:29 PM MATERIAL STOCKKEEPER YARD COVID - 19 08/22/2024 08/22/2024 08/22/2024 11:4 6 PM CDT COVID - 19 09/03/2024 09/03/2024 09/03/2024 12:4 7 PM CDT Assessment Noted Time PHQ-9 Depression Total Score: 1 03/07/20 21 10:29 AM CDT documented as of this encounter Care Teams Comsec Manager Relationship Specialty Start Date End Date Keith Craft MD PCP - General Family Medicine 01/14/19 12/26/23 Liz Capellan DO 2 [facility] [address] [place] [address] PCP - General Family Medicine 12/27/23 Quang Locke DO Gastroenterology 01/18/16 Bir Rollins, RN [place] Street Railway Line Installer 03/07/21 05/22/23 [place] [address] [address] 05/25/21 Bri Rollins, RN [place] Nurse Street Railway Line Installer 03/07/21 05/23/23 Werner Swift MD #2 [place] [address] Consulting Physician Pulmonary Disease 01/30/22 Yasmin Restrepo MD #2 [facility] [address] [place] [address] Consulting Physician Endocrinology 07/20/24 Jose Do MD #2 [facility] [address] [place] [address] Consulting Physician Colon and Rectal Surgery 10/12/24 documented as of this encounter
--- OUTSIDE RECORDS SUMMARY | 2024-12-02 13:26 | XMS_ITS | Encounter Summary ---
Author Organization [facility] Address [address] [place] [address] Phone Care Team Providers Care Maxillofacial Surgeon Name Role Phone Quang Locke Oswaldo PRESLEY Unavailable [phone] Silvio Schulte MD Unavailable [phone] Werner Swift MD Unavailable Liz Capellan DO Primary Care Provider Yasmin Restrepo MD Unavailable Jose Do MD Unavailable Encounter Details Date Type Department Care Team (Late st Contact Info) Description 10/14/2024 Telephone [facility] [address] [place] [address] Liz Capellan DO [address] [address] Social History Tobacco Use Types Packs/Day Years Used Date Smoking Tobacco: Former Cigarettes 2 50 1 - 03/16/2018 Smokeless Tobacco: Never Comments:Still uses nictoine patches and gum Alcohol Use Standard Drinks/Week Comments No 0 (1 standard drink = 0.6 oz pur e alcohol) [facility] Utilities Answer Date Recorded In [...] declined 10/05/2024 How often do you attend scientology or sabianist serv ices? Patient declined 10/05/2024 Do you belong to any clubs o r organizations such as scientology groups, unions, fraternal or athletic groups, or [...] Total Score - Questions 1-9 0 06/27 [facility] [place] of Occupat ional Health - Occupational Stress [...] in a prison (including now)? No 07/13/2023 Housing Stability Vital Sign Answer Richar e Recorded In the last 12 months, was t here a time when you were not able to pay the mortgage or rent on time? No 10/05/2024 In the past 12 months, how m any times have you moved where you were living? 1 10/05/2024 At any time in the past 12 m [facility], were you homeless or living in a prison (including now)? No 10/05/2024 Education Answer Date [...] encounter Miscellaneous Notes * Telephone Encounter - Pari Carbajal - 10/14/2024 2:58 PM CDT LM to schedule OV * Telephone Encounter - Ana Vivar APRN, CNP - 10/14/2024 12:44 PM CDT Have patient schedule an OV for evaluation * Telephone Encounter - Arelis Negron RN - 10/14/2024 10:38 AM CDT Situation: medication management Background: Patients care trainer, Oralia, (NOT on PRD), contacting PCP office. She advises patient had an appointment this morning Dr. Do for rectal prolapse. During that visit they listened to patients lungs and he said they are not bad, but there is some wheezing. Oralia advises patient had an upper respiratory infection recently and Dr. Do advised them to reach out to PCP office and see if another round of antibiotics could be ordered. Assessment: Upper respiratory symptoms are improving, but Dr. Do advises she has some wheezing when he listened to her lungs. Recommendation: Please advise on antibiotics. documented in this encounter Plan of Treatment Upcoming Encounters Date Type Department Care Team (Late st Contact Info) Description 12/04/2024 12:45 PM CDT Office Visit [facility] - Family Medicine - [place] #2 [facility] [place] [address] Ana Vivar APRN, JAKOB [address] [facility] [place]. [address] [place] [address] 12/09/2024 11:15 AM CDT Office Visit [facility] Medical [facility] - General Surgery - [place] #2 [facility] 305 [place] [address] Jose Do MD #2 [facility] [address] [place] [address] 01/04/2025 1:30 PM CDT Office Visit [facility] - Pulmonology & Sleep Medicine [facility] #2 [place] [address] Werner Swift MD #2 [place] [address] 03/01/2025 1:30 PM CDT Office Visit [facility] Endocrinology [facility] #2 [place] [address] Yasmin Restrepo MD #2 [facility] [address] [place] [address] 05/13/2025 1:20 PM ORNAMENTAL IRON WORKER APPRENTICE Office Visit [facility] Family Medicine [facility] #2 [place] [address] Liz Capellan, DO 2 [facility] [address] [place] [address] documented as of this encounter Goals [...] Zones/Action plan education. I will notify my Commutator V Ring Assembler if my symptoms fall in the y [...] Total Score: 0 07/13/19 25 1:20 PM ORNAMENTAL IRON WORKER APPRENTICE documented as of this encounter Care Teams Maxillofacial Surgeon Relationship Specialty Start Date End Date Liz Capellan DO 2 [facility] [address] [place] [address] PCP - General Family Medicine 12/27/23 Quang Locke DO Gastroenterology 01/18/16 [place] [address] [address] 05/25/21 Werner Swift MD #2 [place] [address] Consulting Physician Pulmonary Disease 01/30/22 Yasmin Restrepo MD #[address] [address] Consulting Physician Endocrinology 07/20/24 Jose Do MD #2 [place] [address] Consulting Physician Colon and Rectal Surgery 10/12/24 documented as of this encounter
--- OUTSIDE RECORDS SUMMARY | 2024-12-02 13:26 | XMS_ITS | Encounter Summary ---
Author Organization [facility] Address [address] [place] [address] Phone Care Team Providers Care Civil Draftsman Name Role Phone Quang Locke DO Unavailable [phone] Keith Craft MD Primary Care Provider [phone] Silvio Schulte MD Unavailable [phone] Werner Swift MD Unavailable Liz Capellan DO Primary Care Provider [phone] Yasmin Restrepo MD Unavailable Jose Do MD Unavailable Reason for Visit * Reason Comments Medication Refill Encounter Details Date Type Department Care Team (Late st Contact Info) Description 09/30/2023 Refill [facility] Medicine [facility] #2 [place] [address] Keith Craft MD #1 [place] [address] Medication Refill Social History Tobacco Use Types [...] often do you attend chur ch or judaism services? Never 07/13/2023 Do you belong to any clubs o r organizations such as confucianist groups, unions, fraternal or athletic groups, or [...] Total Score - Questions 1-9 0 08/2021 [facility] [place] of Occupat ional Health - Occupational Stress [...] Appointments Date Type Provider Dept 12/20/23 Appointment eKith Craft MD [facility] Showing future appointments within next 90 days and meeting all other requirements documented in this encounter Plan of Treatment Upcoming Encounters Date Type Department Care Team (Late st Contact Info) Description 12/04/2024 12:45 PM CDT Office Visit [facility] Medical Group - Family Medicine - [place] #2 [place] [address] Ana Vivar, BUZZSAW OPERATOR, WELDER PRODUCTION LINE COMBINATION 2 [facility] GUI [facility] 205 [place] [address] 12/09/2024 11:15 AM CDT [facility] [place] #[address] [place] [address] Jose Do MD #[address] [place] [address] 01/04/2025 1:30 PM CDT Office Visit [facility] - Pulmonology & Sleep Medicine - [place] #2 [facility] [place] [address] Werner Swift MD #2 [place] [address] 03/01/2025 1:30 PM CDT Office Visit [facility] Endocrinology - [place] #2 [facility] [place] [address] Yasmin Restrepo MD #[address] [place] [address] 05/13/2025 1:20 PM BLOOD DONOR RECRUITER Office Visit [facility] Family Medicine - [place] #2 [facility] [place] [address] Liz Capellan, DO 2 [facility] [address] [place] [address] documented as of this encounter Goals Goal [...] Zones/Action plan education. I will notify my Load Out Supervisor if my symptoms fall in the [...] - 19 04/27/2024 04/27/2024 04/27/2024 2:19 PM BLOOD DONOR RECRUITER Respiratory Rule-Out 07/24/2024 07/24/2024 025 2:29 PM BLOOD DONOR RECRUITER COVID - 19 07/24/2024 07/24/2024 07/24/2024 2:29 PM BLOOD DONOR RECRUITER COVID - 19 08/22/2024 08/22/2024 08/22/2024 11:4 6 PM CDT COVID - 19 09/03/2024 09/03/2024 09/03/2024 12:4 7 PM CDT Assessment Noted Time PHQ-9 Depression Total Score: 1 03/07/20 21 10:29 AM CDT documented as of this encounter Care Teams Civil Draftsman Relationship Specialty Start Date End Date Keith Craft MD PCP - General Family Medicine 01/14/19 12/26/23 Liz Capellan DO 2 [facility] 205 [place], [place] [address] PCP - General Family Medicine 12/27/23 Quang Locke DO Gastroenterology 01/18/16 [place] [address] [address] 05/25/21 Werner Swift MD #2 [place] [address] Consulting Physician Pulmonary Disease 01/30/22 Yasmin Restrepo MD #[address] [address] Consulting Physician Endocrinology 07/20/24 Jose Do MD #[address] [address] Consulting Physician Colon and Rectal Surgery 10/12/24 documented as of this encounter
--- OUTSIDE RECORDS SUMMARY | 2024-12-02 13:26 | XMS_ITS | Encounter Summary ---
Author Organization [facility] Address [address] [place] [address] Phone Care Team Providers Care Circular Gang Saw Operator Name Role Phone Quang Locke DO Unavailable [phone] Keith Craft MD Primary Care Provider [phone] Silvio Schulte MD Unavailable Werner Swift MD Unavailable Liz Capellan DO Primary Care Provider [phone] Yasmin Restrepo MD Unavailable Jose Do MD Unavailable Reason for Visit * Reason Comments Medication Refill Encounter Details Date Type Department Care Team (Late st Contact Info) Description 10/29/2023 [facility]ill [facility] - Family Medicine [facility] #2 [place] [address] Keith Craft MD #1 [place] [address] Medication Refill Social History Tobacco Use Types Packs/Day Years Used Date Smoking Tobacco: Former Cigarettes 2 50 1 - 03/16/2018 Smokeless Tobacco: Never Comments:Still uses nictoine patches and gum Alcohol Use Standard Drinks/Week Comments No 0 (1 standard drink = 0.6 oz pur e alcohol) [facility] Utilities Answer Date Recorded In the [...] Total Score - Questions 1-9 0 08/2021 [facility] [place] of Occupat ional Health - Occupational Stress [...] [place] 05/02/23 Office Visit Keith Craft MD [facility] [...] Description 12/04/2024 12:45 PM CDT Office Visit [facility] Family Medicine - [place] #2 [place] [address] Ana Vivar, REBECCA, VEGETABLE VENDOR 2 [facility] [address] [place] [address] 12/09/2024 11:15 AM CDT Office Visit [facility] Medical [facility] - General Surgery - [place] #2 [facility] [address] [place] [address] Jose Do MD #2 [facility] [address] [place] [address] 01/04/2025 1:30 PM CDT Office Visit [facility] - Pulmonology & Sleep Medicine - [place] #2 [place] [place] [address] Werner Swift MD #2 [place] [address] 03/01/2025 1:30 PM CDT Office Visit [facility] - Endocrinology - [place] #2 [place] [place] [address] Yasmin Restrepo MD #2 [facility] [address] [place] [address] 05/13/2025 1:20 PM BUSINESS OBJECTS REPORT DEVELOPER Office Visit [facility] - Family Medicine - [place] #2 [place] [address] Liz Capellan, DO 2 [facility]. [address] [place], [place] [id number] documented as of this encounter Goals Goal [...] Zones/Action plan education. I will notify my Music Critic if my symptoms fall in the y [...] 19 04/27/2024 04/27/2024 04/27/2024 2:19 PM BUSINESS OBJECTS REPORT DEVELOPER Respiratory Rule-Out 07/24/2024 07/24/2024 025 2:29 PM BUSINESS OBJECTS REPORT DEVELOPER COVID - 19 07/24/2024 07/24/2024 07/24/2024 2:29 PM BUSINESS OBJECTS REPORT DEVELOPER COVID - 19 08/22/2024 08/22/2024 08/22/2024 11:4 6 PM CDT COVID - 19 09/03/2024 09/03/2024 09/03/2024 12:4 7 PM CDT Assessment Noted Time PHQ-9 Depression Total Score: 1 03/07/20 21 10:29 AM CDT documented as of this encounter Care Teams Circular Gang Saw Operator Relationship Specialty Start Date End Date Keith Craft MD PCP - General Family Medicine 01/14/19 12/26/23 Liz Capellan DO [address] [address] PCP - General Family Medicine 12/27/23 Quang Locke DO Gastroenterology 01/18/16 [place] [address] [address] 05/25/21 Werner Swift MD #2 [place] [address] Consulting Physician Pulmonary Disease 01/30/22 Yasmin Restrepo MD #[address] [address] Consulting Physician Endocrinology 07/20/24 Jose Do MD #[address] [id number] Consulting Physician Colon and Rectal Surgery 10/12/24 documented as of this encounter
--- OUTSIDE RECORDS SUMMARY | 2024-12-02 13:26 | XMS_ITS | Encounter Summary ---
Author Organization [facility] Address [address] [place] [address] Phone Care Team Providers Care Accounts Receivable Accountant Name Role Phone Quang Locke DO Unavailable [phone] Keith Craft MD Primary Care Provider [phone] Silvio Schulte MD Unavailable [phone] Werner Swift MD Unavailable Liz Capellan DO Primary Care Provider [phone] Yasmin Restrepo MD Unavailable Jose Do MD Unavailable Reason for Visit * Reason Comments Medication Refill Encounter Details Date Type Department Care Team (Late st Contact Info) Description 10/28/2023 Refill [facility] #2 [place] [address] Werner Swift MD #2 [place] [address] Medication Refill Social History Tobacco Use Types Packs/Day Years Used Date Smoking Tobacco: Former Cigarettes 2 50 1 - 03/16/2018 Smokeless Tobacco: Never Comments:Still uses nictoine patches and gum Alcohol Use Standard Drinks/Week Comments No 0 (1 standard drink = 0.6 oz pur e alcohol) [facility] Utilities Answer Date Recorded In the past [...] attend chur ch or holiness services? Never 07/13/2023 Do you belong to [...] Total Score - Questions 1-9 0 08/2021 [facility] [place] of Occupat ional Health - Occupational Stress [...] Werner Swift MD [facility] [place] [facility] 08/15/23 Office Visit Keith Craft MD [facility] [place] 05/21/23 Office Visit Werner Swift MD [facility] [place] [facility] 05/02/23 Office Visit Keith Craft MD [facility] [place] 04/12/23 Office Visit Keith Craft MD [facility] [place] 01/29/23 Office Visit Werner Swift MD [facility] [place] [facility] 12/10/22 Office Visit Keith Craft MD [facility] [place] Showing recent visits within past 365 days and meeting all other requirements Future Appointments Date Type Provider Dept 11/21/23 Appointment Werner Swift MD [facility] [place] [facility] 12/20/23 Appointment Keith Craft MD [facility] [place] [...] Werner Swift MD [facility] [place] [facility] 08/15/23 Office Visit Keith Craft MD [facility] [place] 05/21/23 Office Visit Werner Swift MD [facility] [place] [facility] 05/02/23 Office Visit Keith Craft MD [facility] [place] 04/12/23 Office Visit Keith Craft MD [facility] [place] 01/29/23 Office Visit [facility] MD [facility] [place] [facility] 12/10/22 Office Visit Keith Craft MD [facility] Showing recent visits within past 365 days and meeting all other requirements Future Appointments Date Type Provider Dept 11/21/23 Appointment Werner Swift MD [facility] [place] [facility] 12/20/23 Appointment Keith Craft MD [facility] Showing future appointments within next 90 days and meeting all other requirements documented in this encounter Plan of Treatment Upcoming Encounters Date Type Department Care Team (Late st Contact Info) Description 12/04/2024 12:45 PM CDT Office Visit [facility] Medical [facility] - Family Medicine - [place] #2 [place] [address] Ana Vivar, PROPOSAL MANAGER, UNIT SECRETARY 2 [facility] [address] [place] [address] 12/09/2024 11:15 AM CDT Office Visit [facility] Medical [facility] - General Surgery - [place] #[address] [place] [address] Jose Do MD #[address] [place] [address] 01/04/2025 1:30 PM CDT Office Visit [facility] - Pulmonology & Sleep Medicine - [place] #2 [facility] [place] [address] Werner Swift MD #2 [place] [address] 03/01/2025 1:30 PM CDT Office Visit [facility] Medical [facility] - Endocrinology - [place] #2 [place] [address] Yasmin Restrepo MD #2 [facility] [address] [place] [address] 05/13/2025 1:20 PM FAMILY AND CONSUMER EDUCATION TEACHER Office Visit [facility] Family Medicine - [place] #2 [place] [address] Liz Capellan, DO 2 [facility] [address] [place] [address] documented as of this encounter Goals Goal [...] Zones/Action plan education. I will notify my Paper Cup Machine Tender if my symptoms fall in [...] 19 04/27/2024 04/27/2024 04/27/2024 2:19 PM FAMILY AND CONSUMER EDUCATION TEACHER Respiratory Rule-Out 07/24/2024 07/24/2024 025 2:29 PM FAMILY AND CONSUMER EDUCATION TEACHER COVID - 19 07/24/2024 07/24/2024 07/24/2024 2:29 PM FAMILY AND CONSUMER EDUCATION TEACHER COVID - 19 08/22/2024 08/22/2024 08/22/2024 11:4 6 PM CDT COVID - 19 09/03/2024 09/03/2024 09/03/2024 12:4 7 PM CDT Assessment Noted Time PHQ-9 Depression Total Score: 1 03/07/20 21 10:29 AM CDT documented as of this encounter Care Teams Accounts Receivable Accountant Relationship Specialty Start Date End Date Keith Craft MD PCP - General Family Medicine 01/14/19 12/26/23 Liz Capellan DO [address] [address] PCP - General Family Medicine 12/27/23 Quang Locke DO Gastroenterology 01/18/16 [place] [address] [address] 05/25/21 Werner Swift MD #2 [place] [address] Consulting Physician Pulmonary Disease 01/30/22 Yasmin Restrepo MD #[address] [address] Consulting Physician Endocrinology 07/20/24 Jose Do MD #[address] [address] Consulting Physician Colon and Rectal Surgery 10/12/24 documented as of this encounter
--- OUTSIDE RECORDS SUMMARY | 2024-12-02 13:26 | XMS_ITS | Encounter Summary ---
Author Organization [facility] Address [address] [place] [address] Phone Care Team Providers Care Meter/Relay Craftsman Name Role Phone Quang Locke Unavailable [phone] Keith Craft MD Primary Care Provider [phone] Bri Rollins RN Unavailable Unavailable Silvio Schulte MD Unavailable [phone] Bri Rollins RN Unavailable Unavailable Werner Swift MD Unavailable Liz Capellan DO Primary Care Provider [phone] Yasmin Restrepo MD Unavailable Jose Do MD Unavailable Reason for Visit * Reason Comments Medication Refill Encounter Details Date Type Department Care Team (Late st Contact Info) Description 11/06/2021 Refill [facility] - Family Medicine [facility] #2 [place] [address] Keith Craft MD #1 [place] [address] Medication Refill Social History Tobacco Use Types [...] [facility] [place] 07/31/21 [facility]21 Office Visit Marcin Anderson, REAL ESTATE TEACHER, COAL SAMPLE TESTER [facility] 05/05/21 Office Visit Brie Denis PAC [facility]14[facility]21 Office Visit Keith Craft MD [facility] 03/23/21 Office Visit Keith Craft, [facility] [...] Description 12/04/2024 12:45 PM CDT Office Visit [facility] - Family Medicine - [place] #2 [place] [address] Ana Vivar, REBECCA, COAL SAMPLE TESTER 2 [facility] [address] [place] [address] 12/09/2024 11:15 AM CDT Office Visit [facility] - General Surgery - [place] #2 [facility] [address] [place] [address] Jose Do MD #2 [facility] [address] [place] [address] 01/04/2025 1:30 PM CDT Office Visit [facility] - Pulmonology & Sleep Medicine - [place] #2 [facility] [place] [address] Werner Swift MD #2 [place] [address] 03/01/2025 1:30 PM CDT Office Visit [facility] - Endocrinology - [place] #2 [place] [address] Yasmin Restrepo MD #2 [facility] [address] [place] [address] 05/13/2025 1:20 PM TRAVEL PT Office Visit [facility] Family Medicine - [place] #2 [address] [facility] [place] [address] Liz Capellan, DO 2 [facility]. [address] [place] [address] documented as of this encounter Goals Goal [...] Zones/Action plan education. I will notify my Grants Manager if my symptoms fall in the [...] 19 04/20/2022 04/20/2022 04/30/2022 12:1 8 AM TRAVEL PT COVID - 19 07/18/2022 07/18/2022 07/28/2022 12:1 6 AM TRAVEL PT COVID - 19 08/21/2022 08/21/2022 08/22/2022 8:31 AM CDT Respiratory Rule Out - RPA 08/21/2022 08/21/2022 0 08/22/2022 3:21 PM CDT COVID - 19 04/18/2023 04/18/2023 04/28/2023 12:1 6 AM TRAVEL PT COVID - 19 07/13/2023 07/13/2023 07/23/2023 12:1 6 AM TRAVEL PT Respiratory Rule Out - RPA 03/17/2024 03/17/2024 1 3:36 PM CDT COVID - 19 04/27/2024 04/27/2024 04/27/2024 2:19 PM TRAVEL PT Respiratory Rule-Out 07/24/2024 07/24/2024 025 2:29 PM TRAVEL PT COVID - 19 07/24/2024 07/24/2024 07/24/2024 2:29 PM TRAVEL PT COVID - 19 08/22/2024 08/22/2024 08/22/2024 11:4 6 PM CDT COVID - 19 09/03/2024 09/03/2024 09/03/2024 12:4 7 PM CDT Assessment Noted Time PHQ-9 Depression Total Score: 1 03/07/20 21 10:29 AM CDT documented as of this encounter Care Teams Meter/Relay Craftsman Relationship Specialty Start Date End Date Keith Craft MD PCP - General Family Medicine 01/14/19 12/26/23 Liz Capellan DO 2 [facility] [address] [place] [address] PCP - General Family Medicine 12/27/23 Quang Locke DO Gastroenterology 01/18/16 Bri Rollins, KATEY [place] Grants Manager 03/07/21 05/22/23 [place] [address] [address] 05/25/21 Bri Rollins RN [place] Nurse Grants Manager 03/07/21 05/23/23 Werner Swift MD #2 [place] [address] Consulting Physician Pulmonary Disease 01/30/22 Yasmin Restrepo MD #[address] [address] Consulting Physician Endocrinology 07/20/24 Jose Do MD #[address] [address] Consulting Physician Colon and Rectal Surgery 10/12/24 documented as of this encounter
--- OUTSIDE RECORDS SUMMARY | 2024-12-02 13:26 | XMS_ITS | Encounter Summary ---
Author Organization [facility] Address [address] [place] [address] Phone Care Team Providers Care Special Forces Communications Sergeant Name Role Phone Quang Locke Unavailable [phone] Keith Craft MD Primary Care Provider [phone] Bri Rollins RN Unavailable Unavailable Silvio Schulte MD Unavailable [phone] Bri Rollins RN Unavailable Unavailable Werner Swift MD Unavailable Liz Capellan DO Primary Care Provider [phone] Yasmin Restrepo MD Unavailable Jose Do MD Unavailable Reason for Visit * Reason Comments Medication Refill Encounter Details Date Type Department Care Team (Late st Contact Info) Description 02/18/2023 Refill [facility] - Family Medicine [facility] #2 [place] [address] Keith Craft MD #1 [place] [address] Medication Refill Social History Tobacco Use Types [...] Dept 12/10/22 Office Visit Keith [facility] MD [facility] 09/10/22 Office Visit Keith Craft MD [facility] 07/18/22 Office Visit Kerri Kauffman, CAMP COUNSELOR, WET PROCESS TECHNICIAN [facility] 06/07/22 Office Visit Keith Craft MD [facility] 03/02/22 Procedure [facility] Office Visit Keith Craft MD [facility] [...] [place] 07/18/22 Office Visit Kerri Kauffman APRN, WET PROCESS TECHNICIAN [facility] 06/07/22 Office Visit Keith Craft MD [facility] [place] 03/02/22 Procedure Visit [facility] 03/02/22 Office Visit Keith Craft MD [facility] Showing recent [...] [place] 07/18/22 Office Visit Kerri Kauffman APRN, [facility] 06/07/22 Office Visit Keith Craft MD [facility] [place] 03/02/22 Procedure Visit [facility] 03/02/22 Office Visit Keith Craft MD [facility] Showing recent [...] 12:45 PM CDT Office Visit [facility] Medical Group - Family Medicine - [place] #2 [place] [address] Ana Vivar N, CAMP COUNSELOR, WET PROCESS TECHNICIAN 2 [facility]. [address] [place] [address] 12/09/2024 11:15 AM CDT Office Visit [facility] - General Surgery - [place] #2 [facility] [address] [place] [address] Jose Do MD #2 [facility] [place] [address] [place] [address] 01/04/2025 1:30 PM CDT Office Visit [facility] - Pulmonology & Sleep Medicine - [place] #2 [place] [address] Werner Swift MD #2 [place] [address] 03/01/2025 1:30 PM CDT Office Visit [facility] - Endocrinology - [place] #2 [place] [address] Yasmin Restrepo MD #2 [facility] [place] [address] [place] [address] 05/13/2025 1:20 PM MARKETING WRITER Office Visit [facility] Family Medicine - [place] #2 [place] [address] Liz Capellan, DO 2 [facility] [address] [place] [address] documented as of this encounter Goals Goal [...] Zones/Action plan education. I will notify my Prospecting Driller Helper if my symptoms fall in the [...] 19 04/18/2023 04/18/2023 04/28/2023 12:1 6 AM MARKETING WRITER COVID - 19 07/13/2023 07/13/2023 07/23/2023 12:1 6 AM MARKETING WRITER Respiratory Rule Out - RPA 03/17/2024 03/17/2024 1 3:36 PM CDT COVID - 19 04/27/2024 04/27/2024 04/27/2024 2:19 PM MARKETING WRITER Respiratory Rule-Out 07/24/2024 07/24/2024 025 2:29 PM MARKETING WRITER COVID - 19 07/24/2024 07/24/2024 07/24/2024 2:29 PM MARKETING WRITER COVID - 19 08/22/2024 08/22/2024 08/22/2024 11:4 6 PM CDT COVID - 19 09/03/2024 09/03/2024 09/03/2024 12:4 7 PM CDT Assessment Noted Time PHQ-9 Depression Total Score: 1 03/07/20 21 10:29 AM CDT documented as of this encounter Care Teams Special Forces Communications Sergeant Relationship Specialty Start Date End Date Keith Craft MD PCP - General Family Medicine 01/14/19 12/26/23 Liz Caepllan DO 2 [facility] [address] [place] [address] PCP - General Family Medicine 12/27/23 Quang Locke DO Gastroenterology 01/18/16 Bri Rollins, RN [place] Prospecting Driller Helper 03/07/21 05/22/23 [place] [address] [address] 05/25/21 Bri Rollins, RN [place] Nurse Prospecting Driller Helper 03/07/21 05/23/23 Werner Swift MD #2 [place] [address] Consulting Physician Pulmonary Disease 01/30/22 Yasmin Restrepo MD #[address] [address] Consulting Physician Endocrinology 07/20/24 Jose Do MD #[address] [address] Consulting Physician Colon and Rectal Surgery 10/12/24 documented as of this encounter
--- OUTSIDE RECORDS SUMMARY | 2024-12-02 13:26 | XMS_ITS | Encounter Summary ---
Author Organization [facility] Address [address] [place] [address] Phone Care Team Providers Care Communications Administrator Name Role Phone Quang Locke Unavailable [phone] Keith Craft MD Primary Care Provider [phone] Bri Rollins RN Unavailable Unavailable Silvio Schulte MD Unavailable [phone] Bri Rollins RN Unavailable Unavailable Werner Swift MD Unavailable Liz Capellan DO Primary Care Provider [phone] Yasmin Restrepo MD Unavailable Jose Do MD Unavailable Reason for Visit * Reason Comments Medication Refill Encounter Details Date Type Department Care Team (Late st Contact Info) Description 09/04/2022 Refill [facility] - [facility] #2 [place] [address] Keith Craft MD #1 [place] [address] Medication Refill Social History Tobacco Use Types [...] Provider Dept 07/18/22 Office Visit Kerri Kauffman, SHOP MECHANIC HELPER, ELECTROPLATING LABORER [facility] 06/07/22 Office Visit Keith Craft MD [facility] [place] 03/02/22 Procedure Visit [facility] 03/02/22 Office Visit Keith Craft MD [facility] [place] 11/03/21 Office Visit Keith Craft MD [facility] 10/19/21 Office Visit Keith Craft MD [facility] 10/05/21 Office Visit Keith Craft MD [facility] 09/08/21 Office Visit Brie Denis PAC [facility] Showing recent visits within past 365 days and meeting all other requirements Future Appointments Date Type Provider Dept 09/10/22 Appointment Keith Craft MD [facility] Showing future appointments within next 90 days and meeting all other requirements documented in this encounter Plan of Treatment Upcoming Encounters Date Type Department Care Team (Late st Contact Info) Description 12/04/2024 12:45 PM CDT Office Visit [facility] Family Medicine - [place] #2 [place] [address] Ana Vivar APRN, ELECTROPLATING LABORER 2 [facility] [address] [place] [address] 12/09/2024 11:15 AM CDT Office Visit [facility] - General Surgery - [place] #2 [facility] [address] [place] [address] Jose Do MD #2 [facility] [address] [place] [address] 01/04/2025 1:30 PM CDT Office Visit [facility] - Pulmonology & Sleep Medicine - [place] #2 [facility] [address] Werner Swift MD #2 [facility] [address] 03/01/2025 1:30 PM CDT Office Visit [facility] - Endocrinology - [place] #2 [facility] [address] Yasmin Restrepo MD [facility]2 [facility] [address] [place] [address] 05/13/2025 1:20 PM ALIGNING INSPECTOR Office Visit [facility] - [facility] Medicine - [place] [facility] [facility] [address] [place] [address] Liz Capellan, DO 2 [facility]. [address] [place] [address] documented as of this encounter Goals Goal [...] Zones/Action plan education. I will notify my Treasury Accountant if my symptoms fall in the y [...] 19 04/18/2023 04/18/2023 04/28/2023 12:1 6 AM ALIGNING INSPECTOR COVID - 19 07/13/2023 07/13/2023 07/23/2023 12:1 6 AM ALIGNING INSPECTOR Respiratory Rule Out - RPA 03/17/2024 03/17/2024 1 3:36 PM CDT COVID - 19 04/27/2024 04/27/2024 04/27/2024 2:19 PM ALIGNING INSPECTOR Respiratory Rule-Out 07/24/2024 07/24/2024 025 2:29 PM ALIGNING INSPECTOR COVID - 19 07/24/2024 07/24/2024 07/24/2024 2:29 PM ALIGNING INSPECTOR COVID - 19 08/22/2024 08/22/2024 08/22/2024 11:4 6 PM CDT COVID - 19 09/03/2024 09/03/2024 09/03/2024 12:4 7 PM CDT Assessment Noted Time PHQ-9 Depression Total Score: 1 03/07/20 21 10:29 AM CDT documented as of this encounter Care Teams Communications Administrator Relationship Specialty Start Date End Date Keith Craft MD PCP - General Family Medicine 01/14/19 12/26/23 Liz Capellan DO [address] [address] PCP - General Family Medicine 12/27/23 Quang Locke DO Gastroenterology 01/18/16 Bri Rollins, RN [place] Treasury Accountant 03/07/21 05/22/23 [place] [id number] [address] 05/25/21 Bri Rollins RN [place] Nurse Treasury Accountant 03/07/21 05/23/23 Werner Swift MD #2 [place] [address] Consulting Physician Pulmonary Disease 01/30/22 Yasmin Restrepo MD #[address] [phone] Consulting Physician Endocrinology 07/20/24 Jose Do MD #[address] [address] Consulting Physician Colon and Rectal Surgery 10/12/24 documented as of this encounter
--- OUTSIDE RECORDS SUMMARY | 2024-12-02 13:26 | XMS_ITS | Encounter Summary ---
Author Organization [facility] Address [address] [place] [address] Phone Care Team Providers Care Pouncing Lathe Operator Name Role Phone Quang Locke DO Unavailable [phone] Keith Craft MD Primary Care Provider [phone] Silvio Schulte MD Unavailable [phone] Werner Swift MD Unavailable Liz Capellan DO Primary Care Provider [phone] Yasmin Restrepo MD Unavailable Jose Do MD Unavailable Reason for Visit * Reason Comments Medication Refill Encounter Details Date Type Department Care Team (Late st Contact Info) Description 12/26/2023 [facility]ill [facility] #2 [place] [address] Keith Craft MD #1 [place] [address] Medication Refill Social History Tobacco Use Types Packs/Day Years Used Date Smoking Tobacco: Former Cigarettes 2 50 1 - 03/16/2018 Smokeless Tobacco: Never Comments:Still uses nictoine patches and gum Alcohol Use Standard Drinks/Week Comments No 0 (1 standard drink = 0.6 oz pur e alcohol) [facility] Utilities Answer Date Recorded In the past 12 months has th e electric, gas, oil, or water company threatened to shut off services in your home? No 12/27/2023 Social Connection and Isolation Panel Answer Date Recorded In a typical week, how many times do you talk on the phone with family, friends, or neighbors? More than three times a week 12/27/2023 How often do you get togethe r with friends or relatives? More than three times a week 12/27/2023 How often do you attend chur ch or bahai services? Never 12/27/2023 Do you belong to [...] Total Score - Questions 1-9 4 10/25 [facility] of Occupat ional Health - Occupational Stress [...] any time in the past 12 m [facility], were you homeless or living in a mcc (including now)? No 12/27/2023 Education Answer Date [...] drink 12/27/2023 1:03 PM CDT [facility] [place] [facility] * Q3: How often do you have six or more drinks on one occasion? Answer Date of Assessment Author Never 12/27/2023 1:03 PM CDT [facility] documented as of this encounter Plan of Treatment Upcoming Encounters Date Type Department Care Team (Late st Contact Info) Description 12/04/2024 12:45 PM CDT [facility] - Family Medicine - [place] #2 [place] [address] Ana Vivar, REBECCA, JAVA APPLICATION DEVELOPER 2 [facility] [address] [place] [address] 12/09/2024 11:15 AM CDT [facility] - General Surgery - [place] #2 [facility] [address] [place] [address] Jose Do MD #[address] [address] 01/04/2025 1:30 PM CDT Office Visit [facility] - Pulmonology & Sleep Medicine - [place] #2 [place] [address] Werner Swift MD #2 [place] [address] 03/01/2025 1:30 PM CDT [facility] - Endocrinology - [place] #2 [facility] [place] [address] Yasmin Restrepo MD #2 [facility] [address] [place] [address] 05/13/2025 1:20 PM PRECISION JIG GRINDER [facility] - [place] #2 [place] [address] Liz Capellan, DO 2 [facility] [facility]. [address] [place] [address] documented as of this encounter Goals Goal [...] plan education. I will notify my Industrial Painter if my symptoms fall in the [...] 19 04/27/2024 04/27/2024 04/27/2024 2:19 PM PRECISION JIG GRINDER Respiratory Rule-Out 07/24/2024 07/24/2024 025 2:29 PM PRECISION JIG GRINDER COVID - 19 07/24/2024 07/24/2024 07/24/2024 2:29 PM PRECISION JIG GRINDER COVID - 19 08/22/2024 08/22/2024 08/22/2024 11:4 6 PM CDT COVID - 19 09/03/2024 09/03/2024 09/03/2024 12:4 7 PM CDT Assessment Noted Time PHQ-9 Depression Total Score: 4 11/08/19 9:33 AM CDT documented as of this encounter Care Teams Pouncing Lathe Operator Relationship Specialty Start Date End Date Keith Craft MD PCP - General Family Medicine 01/14/19 12/26/23 Lzi Capellan DO [address] [id number] PCP - General Family Medicine 12/27/23 Quang Locke DO Gastroenterology 01/18/16 [place] [address] [address] 05/25/21 Werner Swift MD #2 [place] [address] Consulting Physician Pulmonary Disease 01/30/22 Yasmin Restrepo MD #[address] [address] Consulting Physician Endocrinology 07/20/24 Jose Do MD #[address] [address] Consulting Physician Colon and Rectal Surgery 10/12/24 documented as of this encounter
--- OUTSIDE RECORDS SUMMARY | 2024-12-02 13:26 | XMS_ITS | Encounter Summary ---
Author Organization [facility] Address [address] [place] [address] Phone Care Team Providers Care Log Yard Derrick Operator Name Role Phone Quang Locke DO Unavailable [phone] Keith Craft MD Primary Care Provider [phone] Silvio Schulte MD Unavailable [phone] Werner Swift MD Unavailable Liz Capellan DO Primary Care Provider [phone] Yasmin Restrepo MD Unavailable Jose Do MD Unavailable Reason for Visit * Reason Comments Medication Refill Encounter Details Date Type Department Care Team (Late st Contact Info) Description 09/02/2023 Refill [facility] - [place] #2 [place] [address] Marcin Anderson APRN, TICKET BROKER #[address] [address] Medication Refill Social History Tobacco Use Types Packs/Day Years Used Date Smoking Tobacco: Former Cigarettes 2 50 1 - 03/16/2018 Smokeless Tobacco: Never Comments:Still uses nictoine patches and gum Alcohol Use Standard Drinks/Week Comments No 0 (1 standard drink = 0.6 oz pur e alcohol) [facility] Utilities Answer Date Recorded In the past [...] any clubs o r organizations such as advent groups, unions, fraternal or athletic groups, or [...] Total Score - Questions 1-9 0 08/2021 [facility] [place] of Occupat ional Health - Occupational Stress [...] RN - 09/02/2023 2:53 PM CDT PDMP 08-09-24, 30 days Medication failed the protocol, provider [...] [place] 09/10/22 Office Visit Keith Craft MD [facility] Showing recent visits within past 365 days and meeting all other requirements Future Appointments No visits were found meeting these conditions. Showing future appointments within next 90 days and meeting all other requirements documented in this encounter Plan of Treatment Upcoming Encounters Date Type Department Care Team (Late st Contact Info) Description 12/04/2024 12:45 PM CDT Office Visit [facility] - Family Medicine - [place] #2 [place] [address] Ana Vivar, TEACHING SUPERVISOR, TICKET BROKER 2 [facility] [address] [place] [address] 12/09/2024 11:15 AM CDT Office Visit [facility] - General Surgery - [place] #2 [facility] [address] [place] [address] Jose Do MD #[address] [place] [address] 01/04/2025 1:30 PM CDT Office Visit [facility] - Pulmonology & Sleep Medicine - [place] #2 [place] [address] Werner Swift MD #2 [place] [address] 03/01/2025 1:30 PM CDT Office Visit [facility] - Endocrinology - [place] #2 [place] [address] Yasmin Restrepo MD #2 [facility] [address] [place] [address] 05/13/2025 1:20 PM AEROSPACE TECHNICIAN Office Visit [facility] - Family Medicine - [place] #2 [place] [address] Liz Capellan, DO 2 [facility]. [address] [place] [address] documented as of this encounter Goals Goal [...] Zones/Action plan education. I will notify my Sap Developer if my symptoms fall in the [...] - 19 04/27/2024 04/27/2024 04/27/2024 2:19 PM AEROSPACE TECHNICIAN Respiratory Rule-Out 07/24/2024 07/24/2024 025 2:29 PM AEROSPACE TECHNICIAN COVID - 19 07/24/2024 07/24/2024 07/24/2024 2:29 PM AEROSPACE TECHNICIAN COVID - 19 08/22/2024 08/22/2024 08/22/2024 11:4 6 PM CDT COVID - 19 09/03/2024 09/03/2024 09/03/2024 12:4 7 PM CDT Assessment Noted Time PHQ-9 Depression Total Score: 1 03/07/20 21 10:29 AM CDT documented as of this encounter Care Teams Log Yard Derrick Operator Relationship Specialty Start Date End Date Keith Craft MD PCP - General Family Medicine 01/14/19 12/26/23 Liz Capellan DO [address] [address] PCP - General Family Medicine 12/27/23 Quang Locke DO Gastroenterology 01/18/16 [place] [address] [address] 05/25/21 Werner Swift MD #2 [place] [address] Consulting Physician Pulmonary Disease 01/30/22 Yasmin Restrepo MD #[address] [address] Consulting Physician Endocrinology 07/20/24 Jose Do MD #[address] [address] Consulting Physician Colon and Rectal Surgery 10/12/24 documented as of this encounter
--- OUTSIDE RECORDS SUMMARY | 2024-12-02 13:26 | XMS_ITS | Encounter Summary ---
Author Organization [facility] Address [address] [place] [address] Phone Care Team Providers Care Diesel Power Shovel Operator Name Role Phone Quang Locke DO Unavailable [phone] Keith Craft MD Primary Care Provider Silvio Schulte MD Unavailable [phone] Werner Swift MD Unavailable Liz Capellan DO Primary Care Provider [phone] Yasmin Restrepo MD Unavailable Jose Do MD Unavailable Reason for Visit * Reason Comments Medication Refill Encounter Details Date Type Department Care Team (Late st Contact Info) Description 09/09/2023 Refill [facility] #2 [place] [address] Keith Craft MD #1 [place] [address] Medication Refill Social History Tobacco Use Types [...] any clubs o r organizations such as bahai groups, unions, fraternal or athletic groups, or [...] Total Score - Questions 1-9 0 08/2021 [facility] [place] of Occupat ional Health - Occupational Stress [...] [place] 04/12/23 Office Visit Keith [facility] MD [facility] Showing recent visits within past 182 [...] [facility] - Family Medicine - [place] #2 [place] [address] Ana Vivar, CAREER REPRESENTATIVE, CUSTOMER SALES DISTRIBUTOR 2 [facility] [address] [place] [address] 12/09/2024 11:15 AM CDT [facility] - [place] #[address] [facility] [address] [place] [address] Jose Do MD #2 [facility] [address] [place] [address] 01/04/2025 1:30 PM CDT Office Visit [facility] - Pulmonology & Sleep Medicine - [place] #2 [place] [address] Werner Swift MD #2 [place] [address] 03/01/2025 1:30 PM CDT Office Visit [facility] Endocrinology - [place] #2 [place] [address] Yasmin Restrepo MD #[address] [place] [address] 05/13/2025 1:20 PM DRAMATIC TEACHER Office Visit [facility] Family [facility] - [place] #2 [place] [address] Liz Capellan, DO 2 [facility] [address] [place] [address] documented as of this encounter Goals Goal Patient Goal Type Associated Problems Recent Progress Patient-Stated? Author Chronic Disease Management Chronic Disease Management On track(2022 10:36 AM CDT) rBi Turcios, RN Note: Goal: I will effectively [...] plan education. I will notify my Vp Legal Affairs if my symptoms fall in the y [...] - 19 04/27/2024 04/27/2024 04/27/2024 2:19 PM DRAMATIC TEACHER Respiratory Rule-Out 07/24/2024 07/24/2024 025 2:29 PM DRAMATIC TEACHER COVID - 19 07/24/2024 07/24/2024 07/24/2024 2:29 PM DRAMATIC TEACHER COVID - 19 08/22/2024 08/22/2024 08/22/2024 11:4 6 PM CDT COVID - 09/03/2024 09/03/2024 09/03/2024 12:4 7 PM CDT Assessment Noted Time PHQ-9 Depression Total Score: 1 03/07/20 21 10:29 AM CDT documented as of this encounter Care Teams Diesel Power Shovel Operator Relationship Specialty Start Date End Date Keith Craft MD PCP - General Family Medicine 01/14/19 12/26/23 Liz Capellan DO 2 [facility] [address] [place] [address] PCP - General Family Medicine 12/27/23 Quang Locke DO Gastroenterology 01/18/16 [place] [address] [address] 05/25/21 Werner Swift MD #2 [place] [address] Consulting Physician Pulmonary Disease 01/30/22 Yasmin Restrepo MD #[address] [address] Consulting Physician Endocrinology 07/20/24 Jose Do MD #[address] [address] Consulting Physician Colon and Rectal Surgery 10/12/24 documented as of this encounter
--- OUTSIDE RECORDS SUMMARY | 2024-12-02 13:26 | XMS_ITS | Encounter Summary ---
Author Organization [facility] Address [address] [place] [address] Phone Care Team Providers Care Mash Filter Press Operator Name Role Phone Quang Locke DO Unavailable [phone] Keith Craft MD Primary Care Provider [phone] Silvio Schulte MD Unavailable [phone] Werner Swift MD Unavailable Liz Capellan DO Primary Care Provider [phone] Yasmin Restrepo MD Unavailable Jose Do MD Unavailable Reason for Visit * Reason Comments Medication Refill Encounter Details Date Type Department Care Team (Late st Contact Info) Description 09/16/2023 Refill [facility] - [facility] #2 [place] [address] Keith Craft MD #1 [place] [address] Medication Refill Social History Tobacco Use Types Packs/Day Years Used Date Smoking Tobacco: Former Cigarettes 2 50 1 - 03/16/2018 Smokeless Tobacco: Never Comments:Still uses nictoine patches and gum Alcohol Use Standard Drinks/Week Comments No 0 (1 standard drink = 0.6 oz pur e alcohol) [facility] Utilities Answer Date Recorded In the [...] any clubs o r organizations such as presybeterian groups, unions, fraternal or athletic groups, or [...] Total Score - Questions 1-9 0 08/2021 [facility] [place] of Occupat ional Health - Occupational [...] Description 12/04/2024 12:45 PM CDT Office Visit [facility] [place] #2 [facility] [place] [address] Ana Vivar, CASE FILLER, FENCE GATE ASSEMBLER [address] [place] [address] 12/09/2024 11:15 AM CDT Office Visit [facility] General Surgery - [place] #[address] [place] [address] Jose Do MD #[address] [address] 01/04/2025 1:30 PM CDT Office Visit [facility] - Pulmonology & Sleep Medicine - [place] #2 [facility] [place] [address] Werner Swift MD #2 [facility] [place] [address] 03/01/2025 1:30 PM CDT Office Visit [facility] Endocrinology - [place] #2 [facility] [place] [address] Yasmin Restrepo MD #[address] [place] [address] 05/13/2025 1:20 PM VOLLEYBALL ASSISTANT COACH Office Visit [facility] Family [facility] - [place] #2 [facility] [place] [address] Liz Capellan, DO 2 [facility]. [address] [place] [address] documented as of this encounter Goals Goal [...] Zones/Action plan education. I will notify my Property Appraiser if my symptoms fall in the y [...] of insulin ([facility]) documented in this encounter Additional Health Concerns Infection Onset Date Last Indicated Resolved Time Stenotrophomonas maltophilia Comment:Must have a follow up respiratory sample to remove isolation/infection flag. 10/20/2021 10/20/2021 Respiratory Rule Out - RPA 03/17/2024 03/17/2024 1 3:36 PM CDT COVID - 19 04/27/2024 04/27/2024 04/27/2024 2:19 PM VOLLEYBALL ASSISTANT COACH Respiratory Rule-Out 07/24/2024 07/24/2024 025 2:29 PM VOLLEYBALL ASSISTANT COACH COVID - 19 07/24/2024 07/24/2024 07/24/2024 2:29 PM VOLLEYBALL ASSISTANT COACH COVID - 19 08/22/2024 08/22/2024 08/22/2024 11:4 6 PM CDT COVID - 19 09/03/2024 09/03/2024 09/03/2024 12:4 7 PM CDT Assessment Noted Time PHQ-9 Depression Total Score: 1 03/07/20 21 10:29 AM CDT documented as of this encounter Care Teams Mash Filter Press Operator Relationship Specialty Start Date End Date Keith Craft MD PCP - General Family Medicine 01/14/19 12/26/23 iLz Capellan DO [address] [address] PCP - General Family Medicine 12/27/23 Quang Locke DO Gastroenterology 01/18/16 [place] [address] [address] 05/25/21 Werner Swift MD #2 [place] [address] Consulting Physician Pulmonary Disease 01/30/22 Yasmin Restrepo MD #[address] [address] Consulting Physician Endocrinology 07/20/24 Jose Do MD #[address] [address] Consulting Physician Colon and Rectal Surgery 10/12/24 documented as of this encounter
--- OUTSIDE RECORDS SUMMARY | 2024-12-02 13:26 | XMS_ITS | Encounter Summary ---
Author Organization [facility] Address [address] [place] [address] Phone Care Team Providers Care Asbestos Wire Finisher Name Role Phone Quang Locke Unavailable [phone] Keith Craft MD Primary Care Provider [phone] Bri Rollins RN Unavailable Unavailable Silvio Schulte MD Unavailable [phone] Bri Rollins RN Unavailable Unavailable Werner Swift MD Unavailable Liz Capellan DO Primary Care Provider [phone] Yasmin Restrepo MD Unavailable Jose Do MD Unavailable Reason for Visit * Reason Comments Medication Refill Encounter Details Date Type Department Care Team (Late st Contact Info) Description 12/26/2022 Refill [facility] Medical Group - Family Medicine [facility] #2 [place] [address] Keith Craft MD #1 [place] [address] Medication Refill Social History Tobacco Use Types [...] AM CDT Name from pharmacy: VITAMIN D [id number] CAPSULE Will file in chart as: ergocalciferol (VITAMIN D) 28432 UNIT Capsule The original prescription was discontinued [...] 67 83 >=60 >=60 >=60 Resulting Agency [facility] documented in this encounter Plan of Treatment Upcoming Encounters Date Type Department Care Team (Late st Contact Info) Description 12/04/2024 12:45 PM CDT Office Visit [facility] - Family Medicine - [place] #2 [place] [address] Ana Vivar, APPLICATION SUPPORT LEAD, FISHER LOBSTER 2 [facility] [address] [place] [address] 12/09/2024 11:15 AM CDT Office Visit [facility] - General Surgery - [place] #[address] [place] [address] Jose Do MD #[address] [place] [address] 01/04/2025 1:30 PM CDT Office Visit [facility] - Pulmonology & Sleep Medicine - [place] #2 [place] [address] Werner Swift MD #2 [facility] [place] [address] 03/01/2025 1:30 PM CDT Office Visit [facility] - Endocrinology - [place] #2 [place] [address] Yasmin Restrepo MD #[address] [place] [address] 05/13/2025 1:20 PM IT SOFTWARE ENGINEER Office Visit [facility] Family Medicine - [place] #2 [place] [address] Liz Capellan, DO 2 [email or web address] [place] [address] [place] [address] documented as of this encounter Goals Goal [...] plan education. I will notify my Manager Contract if my symptoms fall in the y [...] 04/18/2023 04/18/2023 04/28/2023 12:1 6 AM IT SOFTWARE ENGINEER COVID - 19 07/13/2023 07/13/2023 07/23/2023 12:1 6 AM IT SOFTWARE ENGINEER Respiratory Rule Out - RPA 03/17/2024 03/17/2024 1 3:36 PM CDT COVID - 19 04/27/2024 04/27/2024 04/27/2024 2:19 PM IT SOFTWARE ENGINEER Respiratory Rule-Out 07/24/2024 07/24/2024 025 2:29 PM IT SOFTWARE ENGINEER COVID - 19 07/24/2024 07/24/2024 07/24/2024 2:29 PM IT SOFTWARE ENGINEER COVID - 19 08/22/2024 08/22/2024 08/22/2024 11:4 6 PM CDT COVID - 19 09/03/2024 09/03/2024 09/03/2024 12:4 7 PM CDT Assessment Noted Time PHQ-9 Depression Total Score: 1 03/07/20 10:29 AM CDT documented as of this encounter Care Teams Asbestos Wire Finisher Relationship Specialty Start Date End Date Keith Craft MD PCP - General Family Medicine 01/14/19 12/26/23 Liz Capellan DO [address] [address] PCP - General Family Medicine 12/27/23 Quang Locke DO Gastroenterology 01/18/16 Bri Rollins RN [place] Manager Contract 03/07/21 05/22/23 [place] [id number] [address] 05/25/21 Bri Rollins, KATEY [place] Nurse Manager Contract 03/07/21 05/23/23 Werner Swift MD #2 [place] [address] Consulting Physician Pulmonary Disease 01/30/22 Yasmin Restrepo MD #[address] [address] Consulting Physician Endocrinology 07/20/24 Jose Do MD #[address] [address] Consulting Physician Colon and Rectal Surgery 10/12/24 documented as of this encounter
--- OUTSIDE RECORDS SUMMARY | 2024-12-02 13:26 | XMS_ITS | Encounter Summary ---
Author Organization [facility] Address [address] [place] [address] Phone Care Team Providers Care Customer Support Engineer Name Role Phone Quang Locke Unavailable Keith Craft MD Primary Care Provider [phone] Bri Rollins RN Unavailable Unavailable Silvio Schulte MD Unavailable [phone] Bri Rollins RN Unavailable Unavailable Werner Swift MD Unavailable Liz Capellan DO Primary Care Provider [phone] Yasmin Restrepo MD Unavailable Jose Do MD Unavailable Reason for Visit * Reason Comments Medication Refill Encounter Details Date Type Department Care Team (Late st Contact Info) Description 10/16/2021 Refill [facility] Medical Group - Family Medicine [facility] #2 [place] [address] Keith Craft MD #1 [place] [address] Medication Refill Social History Tobacco Use Types [...] Dept 10/05/21 Office Visit [facility] [place] 09/08/21 Office Visit Brie Denis, NICOLE [facility] [place] 08/14/21 Office Visit Keith Craft MD [facility] 07/31/21 Office Visit Keith [facility] MD [facility] [place] 05/25/21 Office Visit Marcin Anderson MEETING SPECIALIST, LINE WORKER [facility] [place] 05/05/21 Office Visit Brie Denis, PAC [facility] 04/14/21 Office Visit Keith Craft MD [facility] 03/23/21 Office Visit Keith Craft, [facility] 02/07/21 Office Visit Keith Craft MD [facility] 02/03/21 Office Visit Brie Denis, PAC [facility] [place] Showing recent visits within past 730 days and meeting all other requirements Future Appointments Date Type Provider Dept 10/24/21 Appointment Keith Craft MD [facility] 11/03/21 Appointment Keith Craft MD [facility] 12/19/21 Appointment Keith Craft MD [facility] Showing future appointments within next [...] Office Visit [facility] Medical [facility] - Family Medicine - [place] #2 [place] [address] Ana Vivar, MEETING SPECIALIST, LINE WORKER 2 [facility] [address] [place] [address] 12/09/2024 11:15 AM CDT Office Visit [facility] Medical [facility] - General Surgery - [place] #[address] [place] [address] Jose Do MD #[address] [place] [address] 01/04/2025 1:30 PM CDT Office Visit [facility] Medical [facility] - Pulmonology & Sleep Medicine - [place] #2 [place] [address] Werner Swift MD #2 [facility] [place] [address] 03/01/2025 1:30 PM CDT Office Visit [facility] - Endocrinology [facility] #2 [place] [address] Yasmin Restrepo MD #2 [facility] [address] [place] [address] 05/13/2025 1:20 PM HEMMER AUTOMATIC Office Visit [facility] Family Medicine [facility] #2 [facility] [place] [address] Liz Capellan, DO [address] [facility]. [address] [place] [address] documented as of this encounter Goals Goal [...] Zones/Action plan education. I will notify my Live In Companion if my symptoms fall in the y [...] 19 04/20/2022 04/20/2022 04/30/2022 12:1 8 AM HEMMER AUTOMATIC COVID - 19 07/18/2022 07/18/2022 07/28/2022 12:1 6 AM HEMMER AUTOMATIC COVID - 19 08/21/2022 08/21/2022 08/22/2022 8:31 AM CDT Respiratory Rule Out - RPA 08/21/2022 08/21/2022 0 08/22/2022 3:21 PM CDT COVID - 19 04/18/2023 04/18/2023 04/28/2023 12:1 6 AM HEMMER AUTOMATIC COVID - 19 07/13/2023 07/13/2023 07/23/2023 12:1 6 AM HEMMER AUTOMATIC Respiratory Rule Out - RPA 03/17/2024 03/17/2024 1 3:36 PM CDT COVID - 19 04/27/2024 04/27/2024 04/27/2024 2:19 PM HEMMER AUTOMATIC Respiratory Rule-Out 07/24/2024 07/24/2024 2:29 PM HEMMER AUTOMATIC COVID - 19 07/24/2024 07/24/2024 07/24/2024 2:29 PM HEMMER AUTOMATIC COVID - 19 08/22/2024 08/22/2024 08/22/2024 11:4 6 PM CDT COVID - 19 09/03/2024 09/03/2024 09/03/2024 12:4 7 PM CDT Assessment Noted Time PHQ-9 Depression Total Score: 1 03/07/20 10:29 AM CDT documented as of this encounter Care Teams Customer Support Engineer Relationship Specialty Start Date End Date Keith Craft MD PCP - General Family Medicine 01/14/19 12/26/23 Liz Capellan DO [address] [address] PCP - General Family Medicine 12/27/23 Quang Locke DO Gastroenterology 01/18/16 Bri Rollins RN [place] Live In Companion 03/07/21 05/22/23 [place] [id number] [address] 05/25/21 Bri Rollins, KATEY [place] Nurse Live In Companion 03/07/21 05/23/23 Werner Swift MD #2 [place] [address] Consulting Physician Pulmonary Disease 01/30/22 Yasmin Restrepo MD #[address] [address] Consulting Physician Endocrinology 07/20/24 Jose Do MD #[address] [address] Consulting Physician Colon and Rectal Surgery 10/12/24 documented as of this encounter
--- OUTSIDE RECORDS SUMMARY | 2024-12-02 13:26 | XMS_ITS | Encounter Summary ---
Author Organization [facility] Address [address] [place] [address] Phone Care Team Providers Care Gas Appliance Servicer Name Role Phone Quang Locke Unavailable [phone] Keith Craft MD Primary Care Provider [phone] Bri Rollins RN Unavailable Unavailable Silvio Schulte MD Unavailable Bri Rollins RN Unavailable Unavailable Werner Swift MD Unavailable Liz Capellan DO Primary Care Provider [phone] Yasmin Restrepo MD Unavailable Jose Do MD Unavailable Reason for Visit * Reason Comments Medication Refill Encounter Details Date Type Department Care Team (Late st Contact Info) Description 10/31/2021 Refill [facility] #2 [place] [address] Keith Craft MD #1 [place] [address] Medication Refill Social History Tobacco Use Types [...] [place] 09/08/21 Office Visit Brie Denis, NICOLE [facility] [place] 08/14/21 Office Visit Keith Craft MD [facility] 07/31/21 Office Visit Keith Craft MD [facility] 05/25/21 Office Visit Marcin [place], ENGAGEMENT ENGINEER, BUTTER WRAPPER [facility] 05/05/21 Office Visit Cira YarelyNICOLE [facility] 04/14/21 [facility]21 Office Visit Keith Craft MD [facility] 02/07/21 Office Visit [facility] Show[facility] recent visits within past 365 days and meeting all other requirements Future Appointments Date Type Provider Dept 11/03/21 Appointment Keith Craft MD [facility] 12/19/21 Appointment Keith Craft MD [facility] Showing future appointments within next 90 days and meeting all other requirements documented in this encounter Plan of Treatment Upcoming Encounters Date Type Department Care Team (Late st Contact Info) Description 12/04/2024 12:45 PM CDT Office Visit [facility] - Family Medicine - [place] #2 [place] [address] Ana Vivar, ENGAGEMENT ENGINEER, BUTTER WRAPPER 2 [facility] [address] [place] [address] 12/09/2024 11:15 AM CDT Office Visit [facility] - General Surgery - [place] #2 [facility] [address] [place] [address] Jose Do MD #2 [facility] [address] [place] [address] 01/04/2025 1:30 PM CDT Office Visit [facility] - Pulmonology & Sleep Medicine - [place] #2 [facility] [address] Werner Swift MD #2 [facility] [address] 03/01/2025 1:30 PM CDT Office Visit [facility] - Endocrinology - [place] #2 [place] [address] Yasmin Restrepo MD #2 [place] [address] [place] [address] 05/13/2025 1:20 PM GRAIN WAFER MACHINE OPERATOR Office Visit [facility] Family Medicine - [place] #2 [place] [address] Liz Capellan, DO 2 [facility] [place] [facility]. [address] [place] [address] documented as of this encounter Goals Goal [...] Zones/Action plan education. I will notify my Sleep Manager if my symptoms fall in the [...] 19 04/20/2022 04/20/2022 04/30/2022 12:1 8 AM GRAIN WAFER MACHINE OPERATOR COVID - 19 07/18/2022 07/18/2022 07/28/2022 12:1 6 AM GRAIN WAFER MACHINE OPERATOR COVID - 19 08/21/2022 08/21/2022 08/22/2022 8:31 AM CDT Respiratory Rule Out - RPA 08/21/2022 08/21/2022 0 08/22/2022 3:21 PM CDT COVID - 19 04/18/2023 04/18/2023 04/28/2023 12:1 6 AM GRAIN WAFER MACHINE OPERATOR COVID - 19 07/13/2023 07/13/2023 07/23/2023 12:1 6 AM GRAIN WAFER MACHINE OPERATOR Respiratory Rule Out - RPA 03/17/2024 03/17/2024 1 3:36 PM CDT COVID - 19 04/27/2024 04/27/2024 04/27/2024 2:19 PM GRAIN WAFER MACHINE OPERATOR Respiratory Rule-Out 07/24/2024 07/24/2024 025 2:29 PM GRAIN WAFER MACHINE OPERATOR COVID - 19 07/24/2024 07/24/2024 07/24/2024 2:29 PM GRAIN WAFER MACHINE OPERATOR COVID - 19 08/22/2024 08/22/2024 08/22/2024 11:4 6 PM CDT COVID - 19 09/03/2024 09/03/2024 09/03/2024 12:4 7 PM CDT Assessment Noted Time PHQ-9 Depression Total Score: 1 03/07/20 21 10:29 AM CDT documented as of this encounter Care Teams Gas Appliance Servicer Relationship Specialty Start Date End Date Keith Craft MD PCP - General Family Medicine 01/14/19 12/26/23 Liz Capellan DO 2 [facility] [address] [place] [address] PCP - General Family Medicine 12/27/23 Quang Locke DO Gastroenterology 01/18/16 Bri Rollins, KATEY [place] Sleep Manager 03/07/21 05/22/23 [place] [address] [address] 05/25/21 Bri Rollins, KATEY [place] Nurse Sleep Manager 03/07/21 05/23/23 Werner Swift MD #2 [place] [address] Consulting Physician Pulmonary Disease 01/30/22 Yasmin Restrepo MD #2 [place] [address] [place] [address] Consulting Physician Endocrinology 07/20/24 Jose Do MD #2 [facility] [address] [place] [address] Consulting Physician Colon and Rectal Surgery 10/12/24 documented as of this encounter
--- OUTSIDE RECORDS SUMMARY | 2024-12-02 13:26 | XMS_ITS | Encounter Summary ---
Author Organization [facility] Address [address] [place] [address] Phone Care Team Providers Care Suppression Crew Leader Name Role Phone Quang Locke DO Unavailable [phone] Keith Craft MD Primary Care Provider [phone] Silvio Schulte MD Unavailable [phone] Werner Swift MD Unavailable Liz Capellan DO Primary Care Provider [phone] Yasmin Restrepo MD Unavailable Jose Do MD Unavailable Reason for Visit * Reason Comments Medication Refill Encounter Details Date Type Department Care Team (Late st Contact Info) Description 09/04/2023 Refill [facility] #2 [place] [address] Werner Swift MD #2 [place] [address] Medication Refill Social History Tobacco Use Types Packs/Day Years Used Date Smoking Tobacco: Former Cigarettes 2 50 1 - 03/16/2018 Smokeless Tobacco: Never Comments:Still uses nictoine patches and gum Alcohol Use Standard Drinks/Week Comments No 0 (1 standard drink = 0.6 oz pur e alcohol) [facility] Utilities Answer Date Recorded In the [...] Total Score - Questions 1-9 0 08/2021 [facility] [place] of Occupat ional Health - Occupational Stress [...] Werner Swift MD [facility] [place] [facility] 08/15/23 Office Visit Keith Craft MD [facility] 05/21/23 Office Visit Werner Swift MD [facility] [place] [facility] 05/02/23 Office Visit Keith Craft MD [facility] 04/12/23 Office Visit Keith Craft MD [facility] 01/29/23 Office Visit Werner Swift MD [facility] [place] [facility] 12/10/22 Office Visit Keith Craft MD [facility] 10/25/22 Office Visit Werner Swift MD [facility] [place] [facility] 09/10/22 Office Visit Keith [facility] MD [facility] [place] Showing recent visits within past 365 days and meeting all other requirements Future Appointments Date Type Provider Dept 11/21/23 Appointment Werner Swift MD [facility] Showing future appointments within next 90 days and meeting all other requirements documented in this encounter Plan of Treatment Upcoming Encounters Date Type Department Care Team (Late st Contact Info) Description 12/04/2024 12:45 PM CDT [facility] Medicine - [place] #2 [facility] [place] [address] Ghazala, Ana N, DIRECTOR AND PROFESSOR, EXTRACTOR MACHINE OPERATOR 2 [facility] [place]. [address] [place] [address] 12/09/2024 11:15 AM CDT Office Visit [facility] General Surgery - [place] #2 [facility] 305 [place] [address] Jose Do MD #2 [facility] [address] [place] [address] 01/04/2025 1:30 PM CDT Office Visit [facility] - Pulmonology & Sleep Medicine - [place] #2 [place] [address] Werner Swift MD #2 [place] [address] 03/01/2025 1:30 PM CDT Office Visit [facility] - Endocrinology - [place] #2 [place] [address] Yasmin Restrepo MD #[address] [place] [address] 05/13/2025 1:20 PM COMMUNICATIONS ENGINEERING TECHNICIAN Office Visit [facility] Family Medicine - [place] #2 [place] [address] Liz Capellan, DO [address] [address] documented as of this encounter Goals Goal [...] Zones/Action plan education. I will notify my Copyright Expert if my symptoms fall in the [...] CDT COVID - 19 04/27/2024 04/27/2024 04/27/2024 2:1 9 PM COMMUNICATIONS ENGINEERING TECHNICIAN Respiratory Rule-Out 07/24/2024 07/24/2024 025 2:29 PM COMMUNICATIONS ENGINEERING TECHNICIAN COVID - 19 07/24/2024 07/24/2024 07/24/2024 2:29 PM COMMUNICATIONS ENGINEERING TECHNICIAN COVID - 19 08/22/2024 08/22/2024 08/22/2024 11:4 6 PM CDT COVID - 19 09/03/2024 09/03/2024 09/03/2024 12:4 7 PM CDT Assessment Noted Time PHQ-9 Depression Total Score: 1 03/07/20 21 10:29 AM CDT documented as of this encounter Care Teams Suppression Crew Leader Relationship Specialty Start Date End Date Keith Craft MD PCP - General Family Medicine 01/14/19 12/26/23 Liz Capellan DO 2 [facility] [address] [place], [place] [id number] PCP - General Family Medicine 12/27/23 Quang Locke DO Gastroenterology 01/18/16 [place] [address] [address] 05/25/21 Werner Swift MD #2 [facility] [place] [address] Consulting Physician Pulmonary Disease 01/30/22 Yasmin Restrepo MD #2 [facility] [address] [place] [address] Consulting Physician Endocrinology 07/20/24 Jose Do MD #2 [facility] [address] [place] [address] Consulting Physician Colon and Rectal Surgery 10/12/24 documented as of this encounter
--- OUTSIDE RECORDS SUMMARY | 2024-12-02 13:26 | XMS_ITS | Encounter Summary ---
Author Organization [facility] Address [address] [place] [address] Phone Care Team Providers Care Cq Developer Name Role Phone Quang Locke Unavailable [phone] Keith Craft MD Primary Care Provider [phone] Bri Rollins RN Unavailable Unavailable Silvio Schulte MD Unavailable [phone] Bri Rollins RN Unavailable Unavailable Werner Swift MD Unavailable Liz Capellan DO Primary Care Provider [phone] Yasmin Restrepo MD Unavailable Jose Do MD Unavailable Reason for Visit * Reason Comments Medication Refill Encounter Details Date Type Department Care Team (Late st Contact Info) Description 08/30/2022 Refill [facility] Medical Group - Family Medicine [facility] #2 [place] [address] Keith Craft MD #1 [place] [address] Medication Refill Social History Tobacco Use Types [...] Provider Dept 07/18/22 Office Visit Kerri Kauffman, COILER OPERATOR, CHIEF WRITER [facility] 06/07/22 Office Visit Keith Craft MD [facility] 03/02/22 Procedure Visit [facility]AL [facility] [place] 03/02/22 Office Visit Keith Craft MD [facility] 11/03/21 Office Visit Keith Craft MD [facility] 10/19/21 Office [facility] 10/05/21 Office Visit [facility] 09/08/21 Office Visit Brie Denis, [facility] Showing recent visits within past 365 days and meeting all other requirements Future Appointments Date Type Provider Dept 09/10/22 Appointment Keith Craft MD [facility] Showing future appointments within next 90 days and meeting all other requirements Passed - Active short-acting beta agonist prescription ergocalciferol (VITAMIN D) 93683 UNIT Capsule [Pharmacy Med Name: VITAMIN D [id number] CAPSULE] 12 Capsule 0 Sig: TAKE ONE CAPSULE BY MOUTH ONE TIME WEEKLY Vitamin Supplements (Adult) Protocol Failed - 08/30/2022 10:50 AM Failed - Vitamin D less than 1.25mg Passed - Visit with relevant provider in past 12 months or upcoming 90 days Recent Visits Date Type Provider Dept 07/18/22 Office Visit Kerri Kauffman, COILER OPERATOR, CHIEF WRITER [facility] [place] 06/07/22 Office Visit [facility] 03/02/22 Procedure Visit ZAINA DIABETIC RETINAL IMAGING [facility] [place] 03/02/22 Office Visit Keith Craft MD [facility] 11/03/21 Office Visit Keith Craft MD [facility] 10/19/21 Office Visit Keith Craft MD [facility] 10/05/21 Office Visit Keith Craft MD [facility] 09/08/21 Office Visit Brie Denis, [facility] Showing recent visits within past 365 days and meeting all other requirements Future Appointments Date Type Provider Dept 09/10/22 Appointment Keith Craft MD [facility] Showing future appointments within next [...] Provider Dept 07/18/22 Office Visit Kerri Kauffman, COILER OPERATOR, CHIEF WRITER [facility] 06/07/22 Office Visit Keith Craft MD [facility] 03/02/22 Procedure Visit ZAINA DIABETIC RETINAL IMAGING [facility] 03/02/22 Office Visit Keith Craft MD [facility] 11/03/21 Office Visit Keith Craft MD [facility] [place] 10/19/21 Office Visit Keith Craft MD [facility] 10/05/21 Office Visit Keith Craft MD [facility] [place] 09/08/21 Office Visit Brie Denis, N[facility] Showing recent visits within past 365 days and meeting all other requirements Future Appointments Date Type Provider Dept 09/10/22 Appointment Keith [facility] MD [facility] Showing future appointments within next 90 days and meeting all other requirements documented in this encounter Plan of Treatment Upcoming Encounters Date Type Department Care Team (Late st Contact Info) Description 12/04/2024 12:45 PM CDT Office Visit [facility] Medical [facility] - Family Medicine - [place] #2 [place] [address] Ana Vivar, REBECCA, CHIEF WRITER 2 [facility] [address] [place] [address] 12/09/2024 11:15 AM CDT Office Visit [facility] Medical [facility] - General Surgery - [place] #2 [facility] [address] [place] [address] Jose Do MD #2 [facility] [address] [place] [address] 01/04/2025 1:30 PM CDT Office Visit [facility] - Pulmonology & Sleep Medicine - [place] #2 [place] [address] Werner Swift MD #2 [place] [address] 03/01/2025 1:30 PM CDT Office Visit [facility] - Endocrinology - [place] #2 [place] [address] Yasmin Restrepo MD #[address] [address] 05/13/2025 1:20 PM DIGITAL CONTENT COORDINATOR Office Visit [facility] Family Medicine - [place] #2 [place] [address] Liz Capellan, DO [address] [address] documented as of this encounter Goals Goal [...] Zones/Action plan education. I will notify my Job Putter Up And Ticket Preparer if my symptoms fall in the [...] 19 04/18/2023 04/18/2023 04/28/2023 12:1 6 AM DIGITAL CONTENT COORDINATOR COVID - 19 07/13/2023 07/13/2023 07/23/2023 12:1 6 AM DIGITAL CONTENT COORDINATOR Respiratory Rule Out - RPA 03/17/2024 03/17/2024 1 3:36 PM CDT COVID - 19 04/27/2024 04/27/2024 04/27/2024 2:19 PM DIGITAL CONTENT COORDINATOR Respiratory Rule-Out 07/24/2024 07/24/2024 025 2:29 PM DIGITAL CONTENT COORDINATOR COVID - 19 07/24/2024 07/24/2024 07/24/2024 2:29 PM DIGITAL CONTENT COORDINATOR COVID - 19 08/22/2024 08/22/2024 08/22/2024 11:4 6 PM CDT COVID - 19 09/03/2024 09/03/2024 09/03/2024 12:4 7 PM CDT Assessment Noted Time PHQ-9 Depression Total Score: 1 03/07/20 21 10:29 AM CDT documented as of this encounter Care Teams Cq Developer Relationship Specialty Start Date End Date Keith Craft MD PCP - General Family Medicine 01/14/19 12/26/23 Liz Capellan DO 2 [facility] [place] [address] PCP - General Family Medicine 12/27/23 Quang Locke DO Gastroenterology 01/18/16 Bri Rollins, RN [place] Job Putter Up And Ticket Preparer 03/07/21 05/22/23 [place] [address] [address] 05/25/21 Bri Rollins RN [place] Nurse Job Putter Up And Ticket Preparer 03/07/21 05/23/23 Werner Swift MD #2 [place] [address] Consulting Physician Pulmonary Disease 01/30/22 Yasmin Restrepo MD #[address] [address] Consulting Physician Endocrinology 07/20/24 Jose Do MD #[address] [address] Consulting Physician Colon and Rectal Surgery 10/12/24 documented as of this encounter
--- OUTSIDE RECORDS SUMMARY | 2024-12-02 13:26 | XMS_ITS | Encounter Summary ---
Author Organization [facility] Address [address] [place] [address] Phone Care Team Providers Care Machine Woodworking Sander Name Role Phone Quang Locke DO Unavailable [phone] Keith Craft MD Primary Care Provider [phone] Silvio Schulte MD Unavailable [phone] Werner Swift MD Unavailable Liz Capellan DO Primary Care Provider [phone] Yasmin Restrepo MD Unavailable Jose Do MD Unavailable Reason for Visit * Reason Comments Medication Refill Encounter Details Date Type Department Care Team (Late st Contact Info) Description 09/11/2023 Refill [facility] Medical Group - Family Medicine [facility] #2 [place] [address] Keith Craft MD #1 [place] [address] Medication Refill Social History Tobacco Use Types Packs/Day Years Used Date Smoking Tobacco: Former Cigarettes 2 50 1 - 03/16/2018 Smokeless Tobacco: Never Comments:Still uses nictoine patches and gum Alcohol Use Standard Drinks/Week Comments No 0 (1 standard drink = 0.6 oz pur e alcohol) [facility] Utilities Answer Date Recorded In the [...] Total Score - Questions 1-9 0 08/2021 [facility] of Occupat ional Health - Occupational Stress [...] [place] 12/10/22 Office Visit [facility] MD [facility] Showing recent visits within past 365 days and meeting all other requirements Future Appointments No visits were found meeting these conditions. Showing future appointments within next 90 days and meeting all other requirements documented in this encounter Plan of Treatment Upcoming Encounters Date Type Department Care Team (Late st Contact Info) Description 12/04/2024 12:45 PM CDT Office Visit [facility] Family Medicine - [place] #2 [place] [address] Ana Vivar, REBECCA, FINISHING MACHINE OPERATOR [address] [address] 12/09/2024 11:15 AM CDT Office Visit [facility] Medical [facility] - General Surgery - [place] #[address] [address] Jose Do MD #[address] [address] 01/04/2025 1:30 PM CDT Office Visit [facility] Medical [facility] - Pulmonology & Sleep Medicine - [place] #2 [place] [address] Werner Swift MD #2 [place] [address] 03/01/2025 1:30 PM CDT Office Visit [facility] Medical [facility] - Endocrinology - [place] #2 [place] [address] Yasmin Restrepo MD #2 [facility] [address] [place] [address] 05/13/2025 1:20 PM BUSINESS PROCESS ANALYST Office Visit [facility] - Family Medicine - [place] #2 [place] [address] Liz Capellan, DO 2 [facility] [address] [place] [address] documented as of this encounter Goals Goal [...] Zones/Action plan education. I will notify my Flooring Sales Manager if my symptoms fall in the [...] 19 04/27/2024 04/27/2024 04/27/2024 2:19 PM BUSINESS PROCESS ANALYST Respiratory Rule-Out 07/24/2024 07/24/2024 025 2:29 PM BUSINESS PROCESS ANALYST COVID - 19 07/24/2024 07/24/2024 07/24/2024 2:29 PM BUSINESS PROCESS ANALYST COVID - 19 08/22/2024 08/22/2024 08/22/2024 11:4 6 PM CDT COVID - 19 09/03/2024 09/03/2024 09/03/2024 12:4 7 PM CDT Assessment Noted Time PHQ-9 Depression Total Score: 1 03/07/20 21 10:29 AM CDT documented as of this encounter Care Teams Machine Woodworking Sander Relationship Specialty Start Date End Date Keith Craft MD PCP - General Family Medicine 01/14/19 12/26/23 Liz Capellan DO [address] [address] PCP - General Family Medicine 12/27/23 Quang Locke DO Gastroenterology 01/18/16 [place] [address] [address] 05/25/21 Werner Swift MD #2 [place] [address] Consulting Physician Pulmonary Disease 01/30/22 Yasmin Restrepo MD #[address] [address] Consulting Physician Endocrinology 07/20/24 Jose Do MD #[address] [address] Consulting Physician Colon and Rectal Surgery 10/12/24 documented as of this encounter
--- OUTSIDE RECORDS SUMMARY | 2024-12-02 13:26 | XMS_ITS | Encounter Summary ---
Author Organization [facility] Address [address] [place] [address] Phone Care Team Providers Care Bacteriologist Medical Name Role Phone Quang Locke Unavailable [phone] Keith Craft MD Primary Care Provider [phone] Bri Rollins RN Unavailable Unavailable Silvio Schulte MD Unavailable [phone] Bri Rollins RN Unavailable Unavailable Werner Swift MD Unavailable Liz Capellan DO Primary Care Provider [phone] Yasmin Restrepo MD Unavailable Jose Do MD Unavailable Reason for Visit * Reason Comments Medication Refill Encounter Details Date Type Department Care Team (Late st Contact Info) Description 10/02/[address] [facility] Medical [address] [place] [address] Keith Craft MD #1 [place] [address] Medication Refill Social History Tobacco Use Types Packs/Day Years Used Date Smoking Tobacco: Former Cigarettes 2 50 1 - 03/16/2018 Smokeless Tobacco: Never Comments:Still uses nictoine patches and gum Alcohol Use Standard Drinks/Week Comments No 0 (1 standard drink = 0.6 oz pur e alcohol) PHQ-2 Answer Date Recorded Total Score - Questions 1-9 0 010 08/2021 [employer] Comments Not [...] information for this order ergocalciferol (VITAMIN D) 88415 UNIT Capsule [Pharmacy Med Name: VITAMIN D [id number] CAPSULE] 12 Capsule 0 Sig: TAKE ONE CAPSULE BY MOUTH ONE TIME WEEKLY There is no refill protocol information for this order documented in this encounter Plan of Treatment Upcoming Encounters Date Type Department Care Team ([facility] Contact Info) Description 12/04/2024 12:45 PM CDT Office [facility] - [place] #2 [facility] [place] [address] Ana Vivar APRN, HAND [place] FOOD MAKER 2 [facility] [address] [place] [address] 12/09/2024 11:15 AM CDT Office Visit [facility] General Surgery - [place] #2 [facility] [address] [place] [address] Jose Do MD #[address] [address] 01/04/2025 1:30 PM CDT Office Visit [facility] - Pulmonology & Sleep Medicine - [place] #2 [place] [address] Werner Swift MD #2 [place] [address] 03/01/2025 1:30 PM CDT Office Visit [facility] Endocrinology - [place] #2 [facility] [place] [address] Yasmin Restrepo MD #[address] [address] 05/13/2025 1:20 PM LEAD MINER Office Visit [facility] Family [facility] - [place] #2 [facility] [place] [address] Liz Capellan, DO 2 [facility] [address] [place] [address] documented as of this encounter Goals Goal [...] Zones/Action plan education. I will notify my Novelty Worker if my symptoms fall in the [...] 19 04/20/2022 04/20/2022 04/30/2022 12:1 8 AM LEAD MINER COVID - 19 07/18/2022 07/18/2022 07/28/2022 12:1 6 AM LEAD MINER COVID - 19 08/21/2022 08/21/2022 08/22/2022 8:31 AM CDT Respiratory Rule Out - RPA 08/21/2022 08/21/2022 0 08/22/2022 3:21 PM CDT COVID - 19 04/18/2023 04/18/2023 04/28/2023 12:1 6 AM LEAD MINER COVID - 19 07/13/2023 07/13/2023 07/23/2023 12:1 6 AM LEAD MINER Respiratory Rule Out - RPA 03/17/2024 03/17/2024 1 3:36 PM CDT COVID - 19 04/27/2024 04/27/2024 04/27/2024 2:19 PM LEAD MINER Respiratory Rule-Out 07/24/2024 07/24/2024 025 2:29 PM LEAD MINER COVID - 19 07/24/2024 07/24/2024 07/24/2024 2:29 PM LEAD MINER COVID - 19 08/22/2024 08/22/2024 08/22/2024 11:4 6 PM CDT COVID - 19 09/03/2024 09/03/2024 09/03/2024 12:4 7 PM CDT Assessment Noted Time PHQ-9 Depression Total Score: 1 03/07/20 21 10:29 AM CDT documented as of this encounter Care Teams Bacteriologist Medical Relationship Specialty Start Date End Date Keith Craft MD PCP - General Family Medicine 01/14/19 12/26/23 Liz Capellan DO [address] [address] PCP - General Family Medicine 12/27/23 Quang Locke DO Gastroenterology 01/18/16 Bri Rollins RN [place] Novelty Worker 03/07/21 05/22/23 [place] [address] [address] 05/25/21 Bri Rollins, RN [place] Nurse Novelty Worker 03/07/21 05/23/23 Werner Swift MD #2 [place] [address] Consulting Physician Pulmonary Disease 01/30/22 Yasmin Restrepo MD #[address] [phone] Consulting Physician Endocrinology 07/20/24 Jose Do MD #[address] [address] Consulting Physician Colon and Rectal Surgery 10/12/24 documented as of this encounter
--- OUTSIDE RECORDS SUMMARY | 2024-12-02 13:26 | XMS_ITS | Encounter Summary ---
Author Organization [facility] Address [address] [place] [address] Phone Care Team Providers Care Campus Recruiting Intern Name Role Phone Quang Locke Unavailable [phone] Keith Craft MD Primary Care Provider [phone] Bri Rollins RN Unavailable Unavailable Silvio Schulte MD Unavailable [phone] Bri Rollins RN Unavailable Unavailable Werner Swift MD Unavailable Liz Capellan DO Primary Care Provider [phone] Yasmin Restrepo MD Unavailable Jose Do MD Unavailable Reason for Visit * Reason Comments Medication Refill Encounter Details Date Type Department Care Team (Late st Contact Info) Description 09/30/2021 Refill [facility] Medical Group - Family Medicine [facility] #2 [place] [address] Keith Craft MD #1 [place] [address] Medication Refill Social History Tobacco Use Types [...] Provider Dept 09/08/21 Office Visit Brie Denis, NICOLE [facility] 08/14/21 Office Visit Keith Craft MD [facility] 07/31/21 Office Visit Keith Craft MD [facility] 05/25/21 Office Visit Marcin Anderson APRN, BEEF SELECTOR [facility] 05/05/21 Office Visit Brie Denis, PAC [facility] 04/14/21 Office Visit Keith Craft MD [facility] 03/23/21 [facility]21 Office Visit [facility]rie [facility]ICO[facility] 01/12/21 Office Visit [facility] Showing recent visits within past 365 days and meeting all other requirements Future Appointments Date Type Provider Dept 10/05/21 Appointment Keith Craft MD [facility] 12/19/21 Appointment Keith Craft MD [facility] Showing future appointments within next 90 days and meeting all other requirements documented in this encounter Plan of Treatment Upcoming Encounters Date Type Department Care Team (Late st Contact Info) Description 12/04/2024 12:45 PM CDT Office Visit [facility] - Family Medicine - [place] #2 [place] [address] Ana Vivar, ART DEALER, BEEF SELECTOR 2 [facility] [address] [place] [address] 12/09/2024 11:15 AM CDT Office Visit [facility] - General Surgery - [place] #[address] [address] Jose Do MD #[address] [place] [address] 01/04/2025 1:30 PM CDT Office Visit [facility] - Pulmonology & Sleep Medicine - [place] #2 [facility] [place] [address] Werner Swift MD #2 [place] [address] 03/01/2025 1:30 PM CDT Office Visit [facility] - Endocrinology - [place] #2 [place] [address] Yasmin Restrepo MD #2 [facility] [address] [place] [address] 05/13/2025 1:20 PM SPORTS MEDICINE COORDINATOR Office Visit [facility] Family Medicine - [place] #2 [place] [address] Liz Capellan, DO 2 [facility]. [address] [place] [address] documented as of this encounter Goals Goal [...] Zones/Action plan education. I will notify my Nickel Plater if my symptoms fall in the y [...] 19 04/20/2022 04/20/2022 04/30/2022 12:1 8 AM SPORTS MEDICINE COORDINATOR COVID - 19 07/18/2022 07/18/2022 07/28/2022 12:1 6 AM SPORTS MEDICINE COORDINATOR COVID - 19 08/21/2022 08/21/2022 08/22/2022 8:31 AM CDT Respiratory Rule Out - RPA 08/21/2022 08/21/2022 0 08/22/2022 3:21 PM CDT COVID - 19 04/18/2023 04/18/2023 04/28/2023 12:1 6 AM SPORTS MEDICINE COORDINATOR COVID - 19 07/13/2023 07/13/2023 07/23/2023 12:1 6 AM SPORTS MEDICINE COORDINATOR Respiratory Rule Out - RPA 03/17/2024 03/17/2024 1 3:36 PM CDT COVID - 19 04/27/2024 04/27/2024 04/27/2024 2:19 PM SPORTS MEDICINE COORDINATOR Respiratory Rule-Out 07/24/2024 07/24/2024 025 2:29 PM SPORTS MEDICINE COORDINATOR COVID - 19 07/24/2024 07/24/2024 07/24/2024 2:29 PM SPORTS MEDICINE COORDINATOR COVID - 19 08/22/2024 08/22/2024 08/22/2024 11:4 6 PM CDT COVID - 19 09/03/2024 09/03/2024 09/03/2024 12:4 7 PM CDT Assessment Noted Time PHQ-9 Depression Total Score: 1 03/07/20 21 10:29 AM CDT documented as of this encounter Care Teams Campus Recruiting Intern Relationship Specialty Start Date End Date Keith Craft MD PCP - General Family Medicine 01/14/19 12/26/23 Liz Capellan DO 2 [facility] [address] [place] [address] PCP - General Family Medicine 12/27/23 Quang Locke DO Gastroenterology 01/18/16 Bri Rollins, RN [place] Nickel Plater 03/07/21 05/22/23 [place] [address] [address] 05/25/21 Bri Rollins, RN [place] Nurse Nickel Plater 03/07/21 05/23/23 Werner Swift MD #2 [place] [phone] Consulting Physician Pulmonary Disease 01/30/22 Yasmin Restrepo MD #2 [facility] [address] [place] [address] Consulting Physician Endocrinology 07/20/24 Jose Do MD #2 [facility] [address] [place] [address] Consulting Physician Colon and Rectal Surgery 10/12/24 documented as of this encounter
--- OUTSIDE RECORDS SUMMARY | 2024-12-02 13:26 | XMS_ITS | Encounter Summary ---
Author Organization [facility] Address [address] [place] [address] Phone Care Team Providers Care Captain Cannery Tender Name Role Phone Quang Locke DO Unavailable [phone] Keith Craft MD Primary Care Provider [phone] Silvio Schulte MD Unavailable Werner Swift MD Unavailable Liz Capellan DO Primary Care Provider [phone] Yasmin Restrepo MD Unavailable Jose Do MD Unavailable Reason for Visit * Reason Comments Medication Refill Encounter Details Date Type Department Care Team (Late st Contact Info) Description 10/10/2023 Refill [facility] Medical Group - Family Medicine [facility] #2 [place] [address] Keith Craft MD #1 [place] [address] Medication Refill Social History Tobacco Use Types Packs/Day Years Used Date Smoking Tobacco: Former Cigarettes 2 50 1 - 03/16/2018 Smokeless Tobacco: Never Comments:Still uses nictoine patches and gum Alcohol Use Standard Drinks/Week Comments No 0 (1 standard drink = 0.6 oz pur e alcohol) [facility] Utilities Answer Date Recorded In the [...] often do you attend chur ch or anabaptist services? Never 07/13/2023 Do you belong to [...] Total Score - Questions 1-9 0 08/2021 [facility] of Occupat ional Health - Occupational Stress [...] Description 12/04/2024 12:45 PM CDT Office Visit [facility] Medical [facility] Family Medicine - [place] #2 [facility] [place] [address] Ana Vivar APRN, STUDIO ARTIST [address] [place] [address] 12/09/2024 11:15 AM CDT Office Visit [facility] - General Surgery - [place] #2 [facility] [address] [place] [address] Jose Do MD #[address] [place] [address] 01/04/2025 1:30 PM CDT Office [facility] - Pulmonology & Sleep Medicine - [place] #2 [facility] [place] [address] Werner Swift MD #2 [facility] [place] [address] 03/01/2025 1:30 PM CDT Office Visit [facility] - Endocrinology - [place] #2 [facility] [place] [address] Yasmin Restrepo MD #[address] [place] [address] 05/13/2025 1:20 PM ASSISTANT TRACK COACH Office Visit [facility] - Family [facility] - [place] #[address] [place] [address] Liz Capellan, DO [address] [facility] [address] [place] [place] [address] documented as of this encounter Goals Goal [...] Zones/Action plan education. I will notify my Switch Operator if my symptoms fall in the [...] 19 04/27/2024 04/27/2024 04/27/2024 2:19 PM ASSISTANT TRACK COACH Respiratory Rule-Out 07/24/2024 07/24/2024 025 2:29 PM ASSISTANT TRACK COACH COVID - 19 07/24/2024 07/24/2024 07/24/2024 2:29 PM ASSISTANT TRACK COACH COVID - 19 08/22/2024 08/22/2024 08/22/2024 11:4 6 PM CDT COVID - 19 09/03/2024 09/03/2024 09/03/2024 12:4 7 PM CDT Assessment Noted Time PHQ-9 Depression Total Score: 1 03/07/20 21 10:29 AM CDT documented as of this encounter Care Teams Captain Cannery Tender Relationship Specialty Start Date End Date Keith Craft MD PCP - General Family Medicine 01/14/19 12/26/23 Liz Capellan DO [address] [id number] PCP - General Family Medicine 12/27/23 Quang Locke DO Gastroenterology 01/18/16 [place] [id number] [address] 05/25/21 Werner Swift MD #2 [place] [address] Consulting Physician Pulmonary Disease 01/30/22 Yasmin Restrepo MD #[address] [address] Consulting Physician Endocrinology 07/20/24 Jose Do MD #[address] [address] Consulting Physician Colon and Rectal Surgery 10/12/24 documented as of this encounter
--- OUTSIDE RECORDS SUMMARY | 2024-12-02 13:26 | XMS_ITS | Encounter Summary ---
Author Organization [facility] Address [address] [place] [address] Phone Care Team Providers Care Litigation Legal Assistant Name Role Phone Quang Locke Unavailable Keith Craft MD Primary Care Provider [phone] Bri Rollins RN Unavailable Unavailable Silvio Schulte MD Unavailable [phone] Bri Rollins RN Unavailable Unavailable Werner Swift MD Unavailable Liz Capellan DO Primary Care Provider [phone] Yasmin Restrepo MD Unavailable Jose Do MD Unavailable Reason for Visit * Reason Comments Medication Refill Encounter Details Date Type Department Care Team (Late st Contact Info) Description 12/18/2022 Refill [facility] Medical Group - Family Medicine [facility] #2 [place] [address] Keith Craft MD #1 [place] [address] Medication Refill Social History Tobacco Use Types [...] PM CDT Name from pharmacy: VITAMIN D 10600UDQ CAPSULE Will file in chart as: ergocalciferol (VITAMIN D) 79743 UNIT Capsule The original prescription was discontinued on 11/01/2022 by Keith Craft MD documented in this encounter Plan of Treatment Upcoming Encounters Date Type Department Care Team (Late st Contact Info) Description 12/04/2024 12:45 PM CDT Office Visit [facility] Medical Group - Family Medicine - [place] #2 [place] [address] Ana Vivar, REBECCA, TRADE SALES ASSISTANT 2 [facility] [place] [place] [address] 12/09/2024 11:15 AM CDT Office Visit [facility] - General Surgery - [place] #2 [facility] 305 [place] [address] Jose Do MD #2 [facility] [address] [place] [address] 01/04/2025 1:30 PM CDT Office Visit [facility] - Pulmonology & Sleep Medicine - [place] #2 [facility] [place] [address] Werner Swift MD #2 [facility] [place] [address] 03/01/2025 1:30 PM CDT Office Visit [facility] Endocrinology - [place] #2 [facility] [place] [address] Yasmin Restrepo MD #2 [facility] [address] [place] [phone] 05/13/2025 1:20 PM IT MANAGER Office Visit [facility] Family Medicine - [place] #2 [facility] [address] Liz Capellan, DO [address] [address] documented as of this encounter Goals Goal [...] plan education. I will notify my Welding Systems And Equipment Repairer if my symptoms fall in the [...] 04/18/2023 04/18/2023 04/28/2023 12:1 6 AM IT MANAGER COVID - 19 07/13/2023 07/13/2023 07/23/2023 12:1 6 AM IT MANAGER Respiratory Rule Out - RPA 03/17/2024 03/17/2024 1 3:36 PM CDT COVID - 19 04/27/2024 04/27/2024 04/27/2024 2:19 PM IT MANAGER Respiratory Rule-Out 07/24/2024 07/24/2024 025 2:29 PM IT MANAGER COVID - 19 07/24/2024 07/24/2024 07/24/2024 2:29 PM IT MANAGER COVID - 19 08/22/2024 08/22/2024 08/22/2024 11:4 6 PM CDT COVID - 19 09/03/2024 09/03/2024 09/03/2024 12:4 7 PM CDT Assessment Noted Time PHQ-9 Depression Total Score: 1 03/07/20 21 10:29 AM CDT documented as of this encounter Care Teams Litigation Legal Assistant Relationship Specialty Start Date End Date Keith Craft MD PCP - General Family Medicine 01/14/19 12/26/23 Liz Capellan DO 2 [facility] [address] [place] [address] PCP - General Family Medicine 12/27/23 Quang Locke DO Gastroenterology 01/18/16 Bri Rollins, RN [place] Welding Systems And Equipment Repairer 03/07/21 05/22/23 [place] [id number] [address] 05/25/21 Bri Rollins, RN [place] Nurse [employer]ding Systems And Equipment Repairer 03/07/21 05/23/23 Werner Swift MD #2 [place] [address] Consulting Physician Pulmonary Disease 01/30/22 Yasmin Restrepo MD #2 [facility] [address] [place] [address] Consulting Physician Endocrinology 07/20/24 Jose Do MD #2 [facility] [address] [place] [address] Consulting Physician Colon and Rectal Surgery 10/12/24 documented as of this encounter
--- OUTSIDE RECORDS SUMMARY | 2024-12-02 13:26 | XMS_ITS | Encounter Summary ---
Author Organization [facility] Address [address] [place] [address] Phone Care Team Providers Care Facility Service Associate Name Role Phone Quang Locke Unavailable [phone] Keith Craft MD Primary Care Provider [phone] Bri Rollins RN Unavailable Unavailable Silvio Schulte MD Unavailable [phone] Bri Rollins RN Unavailable Unavailable Werner Swift MD Unavailable Liz Capellan DO Primary Care Provider [phone] Yasmin Restrepo MD Unavailable Jose Do MD Unavailable Reason for Visit * Reason Comments Medication Refill Encounter Details Date Type Department Care Team (Late st Contact Info) Description 07/10/2021 Refill [facility] Medical Group - Family Medicine [facility] #2 [place] [address] Keith Craft MD #1 [place] [address] Medication Refill Social History Tobacco Use Types [...] Dept 05/25/21 Office Visit Marcin Anderson APRN, VISION CARE ASSOCIATE [facility] [place] 05/05/21 Office Visit Brie Denis, PAC [facility] 04/14/21 Office Visit Keith Craft MD [facility] 03/23/21 Office Visit Keith Craft MD [facility] [place] 02/07/21 Office Visit Keith Craft MD [facility] [place] 02/03/21 Office Visit Brie Denis, PAC [facility] [place] 01/12/21 Office Visit Keith Craft MD [facility] 10/12/20 [facility] 10/04/20 [facility] Show[facility] recent visits within past 365 days and meeting all other requirements Future Appointments Date Type Provider Dept 08/14/21 Appointment Keith Craft MD [facility] Showing future appointments within next 90 days and meeting all other requirements UNTING/FINANCE TUTOR documented in this encounter Plan of Treatment Upcoming Encounters Date Type Department Care Team (Late st Contact Info) Description 12/04/2024 12:45 PM CDT Office Visit [facility] Medical [facility] - Family Medicine - [place] #2 [place] [address] Ana Vivar, FOREST RESOURCE SPECIALIST, VISION CARE ASSOCIATE [address] [address] 12/09/2024 11:15 AM CDT Office Visit [facility] Medical [facility] - General Surgery - [place] #[address] [place] [address] Jose Do MD #[address] [place] [address] 01/04/2025 1:30 PM CDT Office Visit [facility] Medical Group - Pulmonology & Sleep Medicine - [place] #2 [place] [address] Werner Swift MD #2 [place] [address] 03/01/2025 1:30 PM CDT Office Visit [facility] Medical [facility] - Endocrinology - [place] #2 [place] [address] Yasmin Restrepo MD #[address] [place] [address] 05/13/2025 1:20 PM ACCOUNTING/FINANCE TUTOR Office Visit [facility] [place] #[address] [place] [address] Liz Capellan, DO [address] [facility] [address] [place] [place] [address] documented as of this encounter Goals Goal Patient Goal Type Associated Problems Recent Progress Patient-Stated? Author Chronic Disease Management Chronic Disease Management On track(2022 10:36 AM CDT) Bri Turcois, RN Note: Goal: I will effectively manage [...] Zones/Action plan education. I will notify my Development Analyst if my symptoms fall in the [...] - 19 07/23/2021 07/23/2021 07/24/2021 6:31 AM ACCOUNTING/FINANCE TUTOR COVID - 19 10/19/2021 10/19/2021 10/20/2021 7:45 AM CDT Respiratory Rule Out - RPA 10/19/2021 10/19/2021 0 10/20/2021 2:10 PM CDT Stenotrophomonas maltophilia Comment:Must have a follow up respiratory sample to remove isolation/infection flag. 10/20/2021 10/20/2021 COVID - 19 04/20/2022 04/20/2022 04/30/2022 12:1 8 AM ACCOUNTING/FINANCE TUTOR COVID - 19 07/18/2022 07/18/2022 07/28/2022 12:1 6 AM ACCOUNTING/FINANCE TUTOR COVID - 19 08/21/2022 08/21/2022 08/22/2022 8:31 AM CDT Respiratory Rule Out - RPA 08/21/2022 08/21/2022 0 08/22/2022 3:21 PM CDT COVID - 19 04/18/2023 04/18/2023 04/28/2023 12:1 6 AM ACCOUNTING/FINANCE TUTOR COVID - 19 07/13/2023 07/13/2023 07/23/2023 12:1 6 AM ACCOUNTING/FINANCE TUTOR Respiratory Rule Out - RPA 03/17/2024 03/17/2024 1 3:36 PM CDT COVID - 19 04/27/2024 04/27/2024 04/27/2024 2:19 PM ACCOUNTING/FINANCE TUTOR Respiratory Rule-Out 07/24/2024 07/24/2024 025 2:29 PM ACCOUNTING/FINANCE TUTOR COVID - 19 07/24/2024 07/24/2024 07/24/2024 2:29 PM ACCOUNTING/FINANCE TUTOR COVID - 19 08/22/2024 08/22/2024 08/22/2024 11:4 6 PM CDT COVID - 19 09/03/2024 09/03/2024 09/03/2024 12:4 7 PM CDT Assessment Noted Time PHQ-9 Depression Total Score: 1 03/07/20 21 10:29 AM CDT documented as of this encounter Care Teams Facility Service Associate Relationship Specialty Start Date End Date Keith Craft MD PCP - General Family Medicine 01/14/19 12/26/23 Liz Capellan DO 2 [facility] [address] [place] [address] PCP - General Family Medicine 12/27/23 Quang Locke DO Gastroenterology 01/18/16 Bri Rollins, RN [place] Development Analyst 03/07/21 05/22/23 [place] [address] [address] 05/25/21 Bri Rollins, RN [place] Nurse Development Analyst 03/07/21 05/23/23 Werner Swift MD #2 [place] [address] Consulting Physician Pulmonary Disease 01/30/22 Yasmin Restrepo MD #[address] [address] Consulting Physician Endocrinology 07/20/24 Jose Do MD #[address] [address] Consulting Physician Colon and Rectal Surgery 10/12/24 documented as of this encounter
--- OUTSIDE RECORDS SUMMARY | 2024-12-02 13:26 | XMS_ITS | Encounter Summary ---
Author Organization [facility] Address [address] [place] [address] Phone Care Team Providers Care Rolls Baker Name Role Phone Quang Locke DO Unavailable [phone] Keith Craft MD Primary Care Provider [phone] Silvio Schulte MD Unavailable [phone] Werner Swift MD Unavailable Liz Capellan DO Primary Care Provider [phone] Yasmin Restrepo MD Unavailable Jose Do MD Unavailable Reason for Visit * Reason Onset Date Comments Cough 09/23/2023 Encounter Details Date Type Department Care Team (Late st Contact Info) Description 09/23/2023 Nurse Triage [facility] Medical Group - Family Medicine [facility] #2 [place] [address] Keith Craft MD #1 [place] [address] Cough Social History Tobacco Use Types Packs/Day Years Used Date Smoking Tobacco: Former Cigarettes 2 50 1 - 03/16/2018 Smokeless Tobacco: Never Comments:Still uses nictoine patches and gum Alcohol Use Standard Drinks/Week Comments No 0 (1 standard drink = 0.6 oz pur e alcohol) [facility] Utilities Answer Date Recorded In the [...] often do you attend chur ch or temple services? Never 07/13/2023 Do you belong to [...] Total Score - Questions 1-9 0 08/2021 [facility] of Occupat ional Health - Occupational Stress [...] Recommendation: Patient is requesting phone call or mychart message regarding if medication is sent to [...] Description 12/04/2024 12:45 PM CDT Office Visit [facility] Medical Group - Family Medicine - [place] #2 [place] [address] Ghazala, Ana N, ROLL TABLE OPERATOR, [employer] 2 [facility] [place] [place] [address] 12/09/2024 11:15 AM CDT Office Visit [facility] - General Surgery - [place] #2 [facility] [address] [place] [address] Jose Do MD #2 [facility] [address] [place] [address] 01/04/2025 1:30 PM CDT Office Visit [facility] - Pulmonology & Sleep Medicine - [place] #2 [address] [facility] [place] [address] Werner Swift MD #2 [facility] [place] [address] 03/01/2025 1:30 PM CDT Office Visit [facility] - Endocrinology - [place] #2 [facility] [place] [address] Yasmin Restrepo MD #[address] [place] [address] 05/13/2025 1:20 PM STOCK RANCH SUPERVISOR Office Visit [facility] Family Medicine - [place] #2 [facility] [place] [address] Liz Capellan, DO 2 [facility] [address] [place] [address] documented as of this encounter Goals Goal [...] 04/27/2024 04/27/2024 2:19 PM STOCK RANCH SUPERVISOR Respiratory Rule-Out 07/24/2024 07/24/2024 025 2:29 PM STOCK RANCH SUPERVISOR COVID - 19 07/24/2024 07/24/2024 07/24/2024 2:29 PM STOCK RANCH SUPERVISOR COVID - 19 08/22/2024 08/22/2024 08/22/2024 11:4 6 PM CDT COVID - 19 09/03/2024 09/03/2024 09/03/2024 12:4 7 PM CDT Assessment Noted Time PHQ-9 Depression Total Score: 1 03/07/20 21 10:29 AM CDT documented as of this encounter Care Teams Rolls Baker Relationship Specialty Start Date End Date Keith Craft MD PCP - General Family Medicine 01/14/19 12/26/23 Liz Capellan DO [address] [address] PCP - General Family Medicine 12/27/23 Quang Locke DO Gastroenterology 01/18/16 [place] [address] [address] 05/25/21 Werner Swift MD #2 [place] [address] Consulting Physician Pulmonary Disease 01/30/22 Yasmin Restrepo MD #[address] [phone] Consulting Physician Endocrinology 07/20/24 Jose Do MD #[address] [address] Consulting Physician Colon and Rectal Surgery 10/12/24 documented as of this encounter
--- OUTSIDE RECORDS SUMMARY | 2024-12-02 13:26 | XMS_ITS | Encounter Summary ---
Author Organization [facility] Address [address] [place] [address] Phone Care Team Providers Care Field Services Director Name Role Phone Quang Locke Unavailable Keith Craft MD Primary Care Provider [phone] Bri Rollins RN Unavailable Unavailable Silvio Schulte MD Unavailable [phone] Bri Rollins RN Unavailable Unavailable Werner Swift MD Unavailable Liz Capellan DO Primary Care Provider [phone] Yasmin Restrepo MD Unavailable Jose Do MD Unavailable Reason for Visit * Reason Comments Medication Refill Encounter Details Date Type Department Care Team (Late st Contact Info) Description 05/06/2021 Refill [facility] #2 [place] [address] Keith Craft MD #1 [place] [address] Medication Refill Social History Tobacco Use Types [...] COVID-19? No / Unsure 05/05/2021 3:02 PM PLODDER OPERATOR documented as of this encounter Miscellaneous [...] Provider Dept 05/05/21 Office Visit Brie Denis, PAC [facility] 04/14/21 Office Visit Keith Craft MD [facility] 03/23/21 Office Visit Keith Craft MD [facility] 02/07/21 Office Visit Keith Craft MD [facility] 02/03/21 Office Visit Brie Denis, PAC [facility] 01/12/21 Office Visit Keith Craft MD [facility] 10/12/20 Office Visit Keith Craft MD [facility] 10/04/20 Office Visit [facility]20 Office Visit Keith Craft MD [facility] Showing recent visits within past 365 days and meeting all other requirements Future Appointments No visits were found meeting these conditions. Showing future appointments within next 90 days and meeting all other requirements Passed - Active short-acting beta agonist prescription DER OPERATOR documented in this encounter Plan of Treatment Upcoming Encounters Date Type Department Care Team (Late st Contact Info) Description 12/04/2024 12:45 PM CDT Office Visit [facility] Medical [facility] - Family Medicine - [place] #2 [place] [address] Ana Vivar, CHIROPRACTIC ASSISTANT, METAL BONDING ASSEMBLER 2 [facility] 205 [place] [address] 12/09/2024 11:15 AM CDT Office Visit [facility] - General Surgery - [place] #[address] [place] [address] Jose Do MD #[address] [place] [address] 01/04/2025 1:30 PM CDT Office Visit [facility] Medical [facility] - Pulmonology & Sleep Medicine - [place] #2 [place] [address] Werner Swift MD #2 [facility] [place] [address] 03/01/2025 1:30 PM CDT Office Visit [facility] Medical [facility] - Endocrinology - [place] #2 [place] [address] Yasmin Restrepo MD #2 [address] [place] [address] 05/13/2025 1:20 PM PLODDER OPERATOR Office Visit [facility] Medical Group - Family [facility] - [place] #[address] [place] [address] MariliaLiz Jamilah, DO [address] [facility] [place] [place] [address] documented as of this encounter Goals Goal [...] Zones/Action plan education. I will notify my Backbreaker if my symptoms fall in the y [...] - 19 07/23/2021 07/23/2021 07/24/2021 6:31 AM PLODDER OPERATOR COVID - 19 10/19/2021 10/19/2021 10/20/2021 7:45 AM CDT Respiratory Rule Out - RPA 10/19/2021 10/19/2021 0 10/20/2021 2:10 PM CDT Stenotrophomonas maltophilia Comment:Must have a follow up respiratory sample to remove isolation/infection flag. 10/20/2021 10/20/2021 COVID - 19 04/20/2022 04/20/2022 04/30/2022 12:1 8 AM PLODDER OPERATOR COVID - 19 07/18/2022 07/18/2022 07/28/2022 12:1 6 AM PLODDER OPERATOR COVID - 19 08/21/2022 08/21/2022 08/22/2022 8:31 AM CDT Respiratory Rule Out - RPA 08/21/2022 08/21/2022 0 08/22/2022 3:21 PM CDT COVID - 19 04/18/2023 04/18/2023 04/28/2023 12:1 6 AM PLODDER OPERATOR COVID - 19 07/13/2023 07/13/2023 07/23/2023 12:1 6 AM PLODDER OPERATOR Respiratory Rule Out - RPA 03/17/2024 03/17/2024 1 3:36 PM CDT COVID - 19 04/27/2024 04/27/2024 04/27/2024 2:19 PM PLODDER OPERATOR Respiratory Rule-Out 07/24/2024 07/24/2024 025 2:29 PM PLODDER OPERATOR COVID - 19 07/24/2024 07/24/2024 07/24/2024 2:29 PM PLODDER OPERATOR COVID - 19 08/22/2024 08/22/2024 08/22/2024 11:4 6 PM CDT COVID - 19 09/03/2024 09/03/2024 09/03/2024 12:4 7 PM CDT Assessment Noted Time PHQ-9 Depression Total Score: 1 03/07/20 21 10:29 AM CDT documented as of this encounter Care Teams Field Services Director Relationship Specialty Start Date End Date Keith Craft MD PCP - General Family Medicine 01/14/19 12/26/23 Liz Capellan DO 2 [facility] [address] [place] [address] PCP - General Family Medicine 12/27/23 Quang Locke DO Gastroenterology 01/18/16 Bri Rollins, RN [place] Backbreaker 03/07/21 05/22/23 [place] [address] [address] 05/25/21 Bri Rollins, RN [place] Nurse Backbreaker 03/07/21 05/23/23 Werner Swift MD #2 [place] [address] Consulting Physician Pulmonary Disease 01/30/22 Yasmin Restrepo MD #[address] [address] Consulting Physician Endocrinology 07/20/24 Jose Do MD #[address] [address] Consulting Physician Colon and Rectal Surgery 10/12/24 documented as of this encounter
--- OUTSIDE RECORDS SUMMARY | 2024-12-02 13:26 | XMS_ITS | Encounter Summary ---
Author Organization [facility] Address [address] [place] [address] Phone Care Team Providers Care Jig Worker Name Role Phone Quang Locke DO Unavailable [phone] Keith Craft MD Primary Care Provider [phone] Silvio Schulte MD Unavailable [phone] Werner Swift MD Unavailable Liz Capellan DO Primary Care Provider [phone] Yasmin Restrepo MD Unavailable Jose Do MD Unavailable Reason for Visit * Reason Comments Medication Refill Encounter Details Date Type Department Care Team (Late st Contact Info) Description 09/30/2023 [facility]ill [facility] [place] [address] Keith Craft MD #1 [place] [address] Medication Refill Social History Tobacco Use Types Packs/Day Years Used Date Smoking Tobacco: Former Cigarettes 2 50 1 - 03/16/2018 Smokeless Tobacco: Never Comments:Still uses nictoine patches and gum Alcohol Use Standard Drinks/Week Comments No 0 (1 standard drink = 0.6 oz pur e alcohol) [facility] Utilities Answer Date Recorded In [...] any clubs o r organizations such as adventism groups, unions, fraternal or athletic groups, or [...] Total Score - Questions 1-9 0 08/2021 [facility] Mary D of Occupat ional Health - Occupational Stress [...] Description 12/04/2024 12:45 PM CDT Office Visit [facility] Family [facility] [place] #2 [place] [address] Ana Vivar, KITCHEN AND COUNTER WORKER, SHELL SORTER 2 [facility] [address] [place] [address] 12/09/2024 11:15 AM CDT Office Visit [facility] General Surgery - [place] #[address] [place] [address] Jose Do MD #[address] [place] [address] 01/04/2025 1:30 PM CDT Office Visit [facility] - Pulmonology & Sleep Medicine - [place] #2 [facility] [place] [address] Werner Swift MD #2 [place] [address] 03/01/2025 1:30 PM CDT Office Visit [facility] Endocrinology - [place] #2 [facility] [place] [address] Yasmin Restrepo MD #[address] [place] [address] 05/13/2025 1:20 PM BAIT MAKER Office Visit [facility] Family [facility] [place] #2 [place] [address] Liz Capellan, DO [address] [facility] [place] [facility] [address] [place] [address] documented as of this encounter Goals Goal [...] Zones/Action plan education. I will notify my Equipment Installation Professional if my symptoms fall in the [...] - 19 04/27/2024 04/27/2024 04/27/2024 2:19 PM BAIT MAKER Respiratory Rule-Out 07/24/2024 07/24/2024 025 2:29 PM BAIT MAKER COVID - 19 07/24/2024 07/24/2024 07/24/2024 2:29 PM BAIT MAKER COVID - 19 08/22/2024 08/22/2024 08/22/2024 11:4 6 PM CDT COVID - 19 09/03/2024 09/03/2024 09/03/2024 12:4 7 PM CDT Assessment Noted Time PHQ-9 Depression Total Score: 1 03/07/20 21 10:29 AM CDT documented as of this encounter Care Teams Jig Worker Relationship Specialty Start Date End Date Keith Craft MD PCP - General Family Medicine 01/14/19 12/26/23 Liz Capellan DO 2 [facility] [address] [place] [address] PCP - General Family Medicine 12/27/23 Quang Locke DO Gastroenterology 01/18/16 [place] [address] [address] 05/25/21 Werner Swift MD #2 [place] [address] Consulting Physician Pulmonary Disease 01/30/22 Yasmin Restrepo MD #[address] [address] Consulting Physician Endocrinology 07/20/24 Jose Do MD #[address] [address] Consulting Physician Colon and Rectal Surgery 10/12/24 documented as of this encounter
--- OUTSIDE RECORDS SUMMARY | 2024-12-02 13:26 | XMS_ITS | Encounter Summary ---
Author Organization [facility] Address [address] [place] [address] Phone Care Team Providers Care Medicine Assistant Name Role Phone Quang Locke Unavailable [phone] Keith Craft MD Primary Care Provider [phone] Bri Rollins RN Unavailable Unavailable Silvio Schulte MD Unavailable [phone] Bri Rollins RN Unavailable Unavailable Werner Swift MD Unavailable Liz Capellan DO Primary Care Provider [phone] Yasmin Restrepo MD Unavailable Jose Do MD Unavailable Reason for Visit * Reason Comments Medication Refill Encounter Details Date Type Department Care Team (Late st Contact Info) Description 07/24/2021 Refill [facility] - Family Medicine [facility] #2 [place] [address] Keith Craft MD #1 [place] [address] Medication Refill Social History Tobacco Use Types [...] COVID-19? No / Unsure 07/23/2021 10:30 AM FINISHING MACHINE OPERATOR documented as of this encounter Miscellaneous Notes * Telephone Encounter - Gloria Cornejo RN - 07/25/2021 1:51 PM CST Medication failed the protocol, provider to review and approve the medication order if appropriate. Requested Prescriptions Pending Prescriptions Disp Refills ergocalciferol (VITAMIN D) 55310 UNIT Capsule [Pharmacy Med Name: VITAMIN D [id number] CAPSULE] 12 Capsule 0 Sig: TAKE ONE CAPSULE BY MOUTH ONE TIME WEEKLY Vitamin Supplements (Adult) Protocol Failed - 07/24/2021 1:17 PM Failed - Vitamin D less than 1.25mg Passed - Visit with relevant provider in past 12 months or upcoming 90 days Recent Visits Date Type Provider Dept 05/25/21 Office Visit Marcin Anderson APRN, WELDING MACHINE OPERATOR [facility] [place] 05/05/21 Office Visit Brie Denis, PAC [facility] [place] 04/14/21 Office Visit Keith Craft MD [facility] [place] 03/23/21 Office Visit Keith Craft MD [facility] [place] 02/07/21 Office Visit Keith Craft MD [facility] [place] 02/03/21 Office Visit Brie Denis, NICOLE [facility] [place] 01/12/21 Office Visit Keith Craft MD [facility] [place] 10/12/20 Office Visit Keith Craft MD [facility] 10/04/20 Office Visit Keith Craft MD [facility] [place] Showing recent visits within past 365 days and meeting all other requirements Future Appointments Date Type Provider Dept 08/14/21 Appointment Keith Craft MD [facility] Showing future appointments within next 90 days and meeting all other requirements SHING MACHINE OPERATOR documented in this encounter Plan of Treatment Upcoming Encounters Date Type Department Care Team (Late st Contact Info) Description 12/04/2024 12:45 PM CDT Office Visit [facility] - Family Medicine - [place] #2 [place] [address] Ana Vivar, WIND FARM OPERATIONS MANAGER, WELDING MACHINE OPERATOR ARC 2 [facility] [address] [place] [address] 12/09/2024 11:15 AM CDT Office Visit [facility] - General Surgery - [place] #[address] [place] [address] Joes Do MD #[address] [place] [address] 01/04/2025 1:30 PM CDT Office Visit [facility] - Pulmonology & Sleep Medicine - [place] #2 [facility] [address] Werner Swift MD #2 [place] [address] 03/01/2025 1:30 PM CDT Office Visit [facility] - Endocrinology - [place] #2 [facility] [place] [address] Yasmin Restrepo MD #[address] [facility] [address] [place] [address] 05/13/2025 1:20 PM FINISHING MACHINE OPERATOR Office Visit [facility] - Family Medicine - [place] #[address] [place] [address] Liz Capellan, DO [address] [facility] [place] [address] documented as of this encounter Goals Goal [...] Zones/Action plan education. I will notify my Deli Cutter Slicer if my symptoms fall in the y [...] - 19 07/23/2021 07/23/2021 07/24/2021 6:31 AM FINISHING MACHINE OPERATOR COVID - 19 10/19/2021 10/19/2021 10/20/2021 7:45 AM CDT Respiratory Rule Out - RPA 10/19/2021 10/19/2021 0 10/20/2021 2:10 PM CDT Stenotrophomonas maltophilia Comment:Must have a follow up respiratory sample to remove isolation/infection flag. 10/20/2021 10/20/2021 COVID - 19 04/20/2022 04/20/2022 04/30/2022 12:1 8 AM FINISHING MACHINE OPERATOR COVID - 19 07/18/2022 07/18/2022 07/28/2022 12:1 6 AM FINISHING MACHINE OPERATOR COVID - 19 08/21/2022 08/21/2022 08/22/2022 8:31 AM CDT Respiratory Rule Out - RPA 08/21/2022 08/21/2022 0 08/22/2022 3:21 PM CDT COVID - 19 04/18/2023 04/18/2023 04/28/2023 12:1 6 AM FINISHING MACHINE OPERATOR COVID - 19 07/13/2023 07/13/2023 07/23/2023 12:1 6 AM FINISHING MACHINE OPERATOR Respiratory Rule Out - RPA 03/17/2024 03/17/2024 1 3:36 PM CDT COVID - 19 04/27/2024 04/27/2024 04/27/2024 2:19 PM FINISHING MACHINE OPERATOR Respiratory Rule-Out 07/24/2024 07/24/2024 025 2:29 PM FINISHING MACHINE OPERATOR COVID - 19 07/24/2024 07/24/2024 07/24/2024 2:29 PM FINISHING MACHINE OPERATOR COVID - 19 08/22/2024 08/22/2024 08/22/2024 11:4 6 PM CDT COVID - 19 09/03/2024 09/03/2024 09/03/2024 12:4 7 PM CDT Assessment Noted Time PHQ-9 Depression Total Score: 1 03/07/20 21 10:29 AM CDT documented as of this encounter Care Teams Medicine Assistant Relationship Specialty Start Date End Date Keith Craft MD PCP - General Family Medicine 01/14/19 12/26/23 Liz Capellan DO 2 [facility] [address] [place] [address] PCP - General Family Medicine 12/27/23 Quang Locke DO Gastroenterology 01/18/16 Bri Rollins, KATEY [place] Deli Cutter Slicer 03/07/21 05/22/23 [place] [address] [address] 05/25/21 Bri Rollins, RN [place] Nurse Deli Cutter Slicer 03/07/21 05/23/23 Werner Swift MD #2 [place] [address] Consulting Physician Pulmonary Disease 01/30/22 Yasmin Restrepo MD #[address] [address] Consulting Physician Endocrinology 07/20/24 Jose Do MD #[address] [address] Consulting Physician Colon and Rectal Surgery 10/12/24 documented as of this encounter
--- OUTSIDE RECORDS SUMMARY | 2024-12-02 13:26 | XMS_ITS | Encounter Summary ---
Author Organization [facility] Address [address] [place] [address] Phone Care Team Providers Care Bath Tester Name Role Phone Quang Locke Unavailable [phone] Keith Craft MD Primary Care Provider [phone] Bri Rollins RN Unavailable Unavailable Silvio Schulte MD Unavailable [phone] Bri Rollins RN Unavailable Unavailable Werner Swift MD Unavailable Liz Capellan DO Primary Care Provider [phone] Yasmin Restrepo MD Unavailable Jose Do MD Unavailable Reason for Visit * Reason Comments Medication Refill Encounter Details Date Type Department Care Team (Late st Contact Info) Description 03/20/2023 Refill [facility] [address] [place] [address] Keith Craft MD #1 [place] [address] Medication Refill Social History Tobacco Use Types [...] [facility] - [place] #2 [place] [address] Ghazala, Ana N, SAFETY DIRECTOR, FENCE SETTER 2 [facility] [place] [address] [place] [address] 12/09/2024 11:15 AM CDT Office Visit [facility] - General Surgery - [place] #2 [facility] [address] [place] [address] Jose Do MD #2 [facility] [address] [place] [address] 01/04/2025 1:30 PM CDT Office Visit [facility] - Pulmonology & Sleep Medicine - [place] #2 [place] [address] Werner Swift MD #2 [place] [address] 03/01/2025 1:30 PM CDT Office Visit [facility] - Endocrinology - [place] #2 [place] [address] Yasmin Restrepo MD #2 [facility] [address] [place] [address] 05/13/2025 1:20 PM PICKLE SOLUTION MAKER Office Visit [facility] Family Medicine - [place] #2 [place] [address] Liz Capellan, DO 2 [facility] [address] [place] [address] documented as of this encounter Goals Goal [...] Zones/Action plan education. I will notify my Lang Interpreter if my symptoms fall in the y [...] 19 04/18/2023 04/18/2023 04/28/2023 12:1 6 AM PICKLE SOLUTION MAKER COVID - 19 07/13/2023 07/13/2023 07/23/2023 12:1 6 AM PICKLE SOLUTION MAKER Respiratory Rule Out - RPA 03/17/2024 03/17/2024 1 3:36 PM CDT COVID - 19 04/27/2024 04/27/2024 04/27/2024 2:19 PM PICKLE SOLUTION MAKER Respiratory Rule-Out 07/24/2024 07/24/2024 025 2:29 PM PICKLE SOLUTION MAKER COVID - 19 07/24/2024 07/24/2024 07/24/2024 2:29 PM PICKLE SOLUTION MAKER COVID - 19 08/22/2024 08/22/2024 08/22/2024 11:4 6 PM CDT COVID - 19 09/03/2024 09/03/2024 09/03/2024 12:4 7 PM CDT Assessment Noted Time PHQ-9 Depression Total Score: 1 03/07/20 10:29 AM CDT documented as of this encounter Care Teams Bath Tester Relationship Specialty Start Date End Date Keith Craft MD PCP - General Family Medicine 01/14/19 12/26/23 Liz Capellan DO 2 [facility] [address] [place] [address] PCP - General Family Medicine 12/27/23 Quang Locke DO Gastroenterology 01/18/16 Bri Rollins RN [place] Lang Interpreter 03/07/21 05/22/23 [place] [address] [address] 05/25/21 Bri Rollins, KATEY [place] Nurse Lang Interpreter 03/07/21 05/23/23 Werner Swift MD #2 [place] [address] Consulting Physician Pulmonary Disease 01/30/22 Yasmin Restrepo MD #[address] [address] Consulting Physician Endocrinology 07/20/24 Jose Do MD #[address] [address] Consulting Physician Colon and Rectal Surgery 10/12/24 documented as of this encounter
--- OUTSIDE RECORDS SUMMARY | 2024-12-02 13:26 | XMS_ITS | Encounter Summary ---
Author Organization [facility] Address [address] [place] [address] Phone Care Team Providers Care Application Architect Name Role Phone Quang Locke Unavailable [phone] Keith Craft MD Primary Care Provider [phone] Bri Rollins RN Unavailable Unavailable Silvio Schulte MD Unavailable [phone] Bri Rollins RN Unavailable Unavailable Werner Swift MD Unavailable Liz Capellan DO Primary Care Provider [phone] Yasmin Restrepo MD Unavailable Jose Do MD Unavailable Reason for Visit * Reason Comments Medication Refill Encounter Details Date Type Department Care Team (Late st Contact Info) Description 06/29/2021 Refill [facility] Group - Family Medicine [facility] #2 [place] [address] Keith Craft MD #1 [place] [address] Medication Refill Social History Tobacco Use Types [...] Lillian Steiner RN - 06/29/2021 10:58 AM PRICING SUPERVISOR Medication failed the protocol, provider to review and approve the medication order if appropriate. Requested Prescriptions Pending Prescriptions Disp Refills Ventolin HFA 108 (90 Base) MCG/ACT Aerosol Solution [Pharmacy Med Name: VENTOLIN HFA 90 MCG [id number] (90 BAS Aerosol] 18 g 1 Sig: USE 2 PUFF(S) BY INHALATION ROUTE EVERY 4 HOURS NEEDED WHEEZING Short Acting Inhaled Beta-Agonists Protocol Passed - 06/29/2021 10:56 AM Passed - Visit with relevant provider in past 12 months or upcoming 90 days Recent Visits Date Type Provider Dept 05/25/21 Office Visit Marcin Anderson APRN, FINANCIAL SERVICES INTERN [facility] [place] 05/05/21 Office Visit Brie Denis, PAC [facility] [place] 04/14/21 Office Visit Keith Craft MD [facility] 03/23/21 Office Visit Keith Craft MD [facility] 02/07/21 Office Visit Keith Craft MD [facility] 02/03/21 Office Visit Brie Denis, [facility] [place] 01/12/21 Office Visit Keith Craft MD [facility] 10/12/20 Office Visit Keith Craft MD [facility] [place] 10/04/20 Office Visit Keith Craft MD [...] Dept 05/25/21 Office Visit Marcin Anderson APRN, [facility] [place] 05/05/21 Office Visit Brie Denis, [facility] [place] 04/14/21 Office Visit Keith Craft MD [facility] 03/23/21 Office Visit Keith Craft MD [facility] 02/07/21 Office Visit Keith Craft MD [facility] 02/03/21 Office Visit Bire Denis, [facility] [place] 01/12/21 Office Visit Keith Craft MD [facility] 10/12/20 Office Visit Keith Craft MD [facility] 10/04/20 Office Visit Keith Craft MD [facility] 06/07/20 Office Visit Keith Craft MD [facility] Showing recent visits within past 730 days [...] Dept 05/25/21 Office Visit Marcin Anderson APRN, FINANCIAL SERVICES INTERN [facility] 05/05/21 Office Visit Brie Denis, PAC [facility] [place] 04/14/21 Office Visit Keith Craft, [facility] [place] 03/23/21 Office Visit Keith Craft, [facility] 02/07/21 Office Visit Keith Craft, [facility] 02/03/21 Office Visit Brie Denis, PAC [facility] [place] 01/12/21 [facility] Keith [facility], [facility] [place] 10/12/20 Office Visit Keith Craft, [facility] [place] 10/04/20 Office Visit [facility], [facility] Show[facility] recent visits within past 365 days and meeting all other requirements Future Appointments Date Type Provider Dept 08/14/21 Appointment Keith Craft, [facility] Showing future appointments within next 90 days and meeting all other requirements ING SUPERVISOR documented in this encounter Plan of Treatment Upcoming Encounters Date Type Department Care Team (Late st Contact Info) Description 12/04/2024 12:45 PM CDT Office [facility] - Family Medicine - [place] #2 [place] [address] Ana Vivar APRN, FINANCIAL SERVICES INTERN 2 [facility] [address] [place] [address] 12/09/2024 11:15 AM CDT Office Visit [facility] - General Surgery - [place] #2 [facility] [address] [place] [address] Jose Do MD #2 [facility] [address] [place] [address] 01/04/2025 1:30 PM CDT Office Visit [facility] - Pulmonology & Sleep Medicine [facility] #2 [facility] [place] [address] Werner Swift MD #2 [place] [address] 03/01/2025 1:30 PM CDT Office Visit [facility] - Endocrinology - [place] #2 [place] [address] Yasmin Restrepo MD #[address] [address] 05/13/2025 1:20 PM PRICING SUPERVISOR Office Visit [facility] Family Medicine [facility] #2 [place] [address] Liz Capellan, DO [address] [address] documented as of this encounter Goals Goal [...] Zones/Action plan education. I will notify my Commercial Loan Coordinator if my symptoms fall in the [...] - 19 07/23/2021 07/23/2021 07/24/2021 6:31 AM PRICING SUPERVISOR COVID - 19 10/19/2021 10/19/2021 10/20/2021 7:45 AM CDT Respiratory Rule Out - RPA 10/19/2021 10/19/2021 0 10/20/2021 2:10 PM CDT Stenotrophomonas maltophilia Comment:Must have a follow up respiratory sample to remove isolation/infection flag. 10/20/2021 10/20/2021 COVID - 19 04/20/2022 04/20/2022 04/30/2022 12:1 8 AM PRICING SUPERVISOR COVID - 19 07/18/2022 07/18/2022 07/28/2022 12:1 6 AM PRICING SUPERVISOR COVID - 19 08/21/2022 08/21/2022 08/22/2022 8:31 AM CDT Respiratory Rule Out - RPA 08/21/2022 08/21/2022 0 08/22/2022 3:21 PM CDT COVID - 19 04/18/2023 04/18/2023 04/28/2023 12:1 6 AM PRICING SUPERVISOR COVID - 19 07/13/2023 07/13/2023 07/23/2023 12:1 6 AM PRICING SUPERVISOR Respiratory Rule Out - RPA 03/17/2024 03/17/2024 1 3:36 PM CDT COVID - 19 04/27/2024 04/27/2024 04/27/2024 2:19 PM PRICING SUPERVISOR Respiratory Rule-Out 07/24/2024 07/24/2024 025 2:29 PM PRICING SUPERVISOR COVID - 19 07/24/2024 07/24/2024 07/24/2024 2:29 PM PRICING SUPERVISOR COVID - 19 08/22/2024 08/22/2024 08/22/2024 11:4 6 PM CDT COVID - 19 09/03/2024 09/03/2024 09/03/2024 12:4 7 PM CDT Assessment Noted Time PHQ-9 Depression Total Score: 1 03/07/20 10:29 AM CDT documented as of this encounter Care Teams Application Architect Relationship Specialty Start Date End Date Keith Craft MD PCP - General Family Medicine 01/14/19 12/26/23 Liz Capellan DO [address] [address] PCP - General Family Medicine 12/27/23 Quang Locke DO Gastroenterology 01/18/16 Bri Rollins RN [place] Commercial Loan Coordinator 03/07/21 05/22/23 [place] [address] [address] 05/25/21 Bri Rollins RN [place] Nurse Commercial Loan Coordinator 03/07/21 05/23/23 Werner Swift MD #2 [place] [address] Consulting Physician Pulmonary Disease 01/30/22 Yasmin Restrepo MD #[address] [address] Consulting Physician Endocrinology 07/20/24 Jose Do MD #[address] [address] Consulting Physician Colon and Rectal Surgery 10/12/24 documented as of this encounter
--- OUTSIDE RECORDS SUMMARY | 2024-12-02 13:26 | XMS_ITS | Encounter Summary ---
Author Organization [facility] Address [address] [place] [address] Phone Care Team Providers Care Operating Systems Programmer Name Role Phone Quang Locke Unavailable [phone] Keith Craft MD Primary Care Provider [phone] Bri Rollins RN Unavailable Unavailable Silvio Schulte MD Unavailable [phone] Bri Rollins RN Unavailable Unavailable Werner Swift MD Unavailable Liz Capellan DO Primary Care Provider [phone] Yasmin Restrepo MD Unavailable Jose Do MD Unavailable Reason for Visit * Reason Comments Medication Refill Encounter Details Date Type Department Care Team (Late st Contact Info) Description 04/02/2023 Refill [facility] Medical [facility] - Family Medicine [facility] #2 [place] [address] Keith Craft MD #1 [place] [address] Medication Refill Social History Tobacco Use Types [...] prescriptions ordered today by Dr Craft. L RECOVERY SPECIALIST * Telephone Encounter - Gloria Cornejo RN - 04/02/2023 3:13 PM CST duplicates L RECOVERY SPECIALIST documented in this encounter Plan of Treatment Upcoming Encounters Date Type Department Care Team (Late st Contact Info) Description 12/04/2024 12:45 PM CDT Office Visit [facility] Medical Group - Family Medicine - [place] #2 [place] [address] Ana Vivar, CAPACITY PLANNING ENGINEER, FINANCIAL COMPLIANCE MANAGER 2 [facility] [address] [place] [address] 12/09/2024 11:15 AM CDT Office Visit [facility] - General Surgery - [place] #[address] [address] Jose Do MD #2 [facility] [address] [place] [address] 01/04/2025 1:30 PM CDT Office Visit [facility] - Pulmonology & Sleep Medicine [facility] #2 [place] [address] Werner Swift MD #2 [place] [address] 03/01/2025 1:30 PM CDT Office Visit [facility] - Endocrinology - [place] #2 [place] [address] Yasmin Restrepo MD #[address] [address] 05/13/2025 1:20 PM LEGAL RECOVERY SPECIALIST Office Visit [facility] Family Medicine [facility] #2 [place] [address] Liz Capellan, DO [address] [address] documented as of this encounter Goals Goal [...] Zones/Action plan education. I will notify my Farm Adviser if my symptoms fall in the y [...] 19 04/18/2023 04/18/2023 04/28/2023 12:1 6 AM LEGAL RECOVERY SPECIALIST COVID - 19 07/13/2023 07/13/2023 07/23/2023 12:1 6 AM LEGAL RECOVERY SPECIALIST Respiratory Rule Out - RPA 03/17/2024 03/17/2024 1 3:36 PM CDT COVID - 19 04/27/2024 04/27/2024 04/27/2024 2:19 PM LEGAL RECOVERY SPECIALIST Respiratory Rule-Out 07/24/2024 07/24/2024 025 2:29 PM LEGAL RECOVERY SPECIALIST COVID - 19 07/24/2024 07/24/2024 07/24/2024 2:29 PM LEGAL RECOVERY SPECIALIST COVID - 19 08/22/2024 08/22/2024 08/22/2024 11:4 6 PM CDT COVID - 19 09/03/2024 09/03/2024 09/03/2024 12:4 7 PM CDT Assessment Noted Time PHQ-9 Depression Total Score: 1 03/07/20 21 10:29 AM CDT documented as of this encounter Care Teams Operating Systems Programmer Relationship Specialty Start Date End Date Keith Craft MD PCP - General Family Medicine 01/14/19 12/26/23 Liz Capellan DO 2 [facility] [address] [place] [address] PCP - General Family Medicine 12/27/23 Quang Locke DO Gastroenterology 01/18/16 Bri Rollins, KATEY [place] Farm Adviser 03/07/21 05/22/23 [place] [address] [address] 05/25/21 Bri Rollins, RN [place] Nurse Farm Adviser 03/07/21 05/23/23 Werner Swift MD #2 [place] [address] Consulting Physician Pulmonary Disease 01/30/22 Yasmin Restrepo MD #[address] [address] Consulting Physician Endocrinology 07/20/24 Jose Do MD #[address] [address] Consulting Physician Colon and Rectal Surgery 10/12/24 documented as of this encounter
--- OUTSIDE RECORDS SUMMARY | 2024-12-02 13:27 | XMS_ITS | Encounter Summary ---
Author Organization [facility] Address [address] [place] [address] Phone Care Team Providers Care Laundry Machine Tender Name Role Phone Quang Locke Unavailable [phone] Keith Craft MD Primary Care Provider [phone] Bri Rollins RN Unavailable Unavailable Silvio Schulte MD Unavailable [phone] Bri Rollins RN Unavailable Unavailable Werner Swift MD Unavailable Liz Capellan DO Primary Care Provider [phone] Yasmin Restrepo MD Unavailable Jose Do MD Unavailable Reason for Visit * Reason Comments Medication Refill Encounter Details Date Type Department Care Team (Late st Contact Info) Description 07/28/2020 Refill [facility] #2 [place] [address] Keith Craft MD #1 [place] [address] Medication Refill Social History Tobacco Use Types [...] COVID-19? 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 [facility] Keith Lemus MD Upcoming Appointments Future Appointments In 2 days [facility] - [address], [place] In 2 months Keith Craft MD [facility] RETIREMENT OFFICER - Recent and Past Visits Recent Visits Date Type Provider Dept 06/07/20 Office Visit Keith Craft MD [facility] 04/25/20 Office Visit Keith Craft, MD [facility] 02/02/20 Office Visit Keith Craft MD [facility] 11/02/19 Office Visit Keith Craft MD [facility] 07/27/19 Office Visit Keith Craft, MD [facility] 06/10/19 Office Visit Cira Yarely, NICOLE [facility] Showing recent visits within past 460 days with a meds authorizing provider and meeting all other requirements Future Appointments Date Type Provider Dept 10/04/20 Appointment Keith Craft MD [facility] Showing future appointments within next 90 days with a meds authorizing provider and meeting all other requirements D BANK TECHNICIAN documented in this encounter Plan of Treatment Upcoming Encounters Date Type Department Care Team (Late st Contact Info) Description 12/04/2024 12:45 PM CDT Office Visit [facility] [place] #2 [place] [address] Ana Vivar, REBECCA, MANAGER FILTER 2 [facility] [address] [place] [address] 12/09/2024 11:15 AM CDT Office Visit [facility] - [place] #2 [facility] [address] [place] [address] Jose Do MD #[address] [address] 01/04/2025 1:30 PM CDT Office Visit [facility] - Pulmonology & Sleep Medicine - [place] #2 [place] [address] Werner Swift MD #2 [place] [address] 03/01/2025 1:30 PM CDT Office Visit [facility] Endocrinology - [place] #2 [place] [address] Yasmin Restrepo MD #[address] [address] 05/13/2025 1:20 PM BLOOD BANK TECHNICIAN Office Visit [facility] - [place] #2 [place] [address] Liz Capellan, DO [address] [address] documented as of this encounter Visit Diagnoses Diagnosis Anxiety and depression Dysthymic disorder documented in this encounter Additional Health Concerns Infection Onset Date Last Indicated Resolved Time COVID - 19 01/25/2021 01/25/2021 01/31/2021 8:10 AM CDT Respiratory Rule Out - RPA 01/30/2021 01/30/2021 0 02/01/2021 12:45 AM CDT COVID - 19 07/23/2021 07/23/2021 07/24/2021 6:31 AM BLOOD BANK TECHNICIAN COVID - 19 10/19/2021 10/19/2021 10/20/2021 7:45 AM CDT Respiratory Rule Out - RPA 10/19/2021 10/19/2021 0 10/20/2021 2:10 PM CDT Stenotrophomonas maltophilia Comment:Must have a follow up respiratory sample to remove isolation/infection flag. 10/20/2021 10/20/2021 COVID - 19 04/20/2022 04/20/2022 04/30/2022 12:1 8 AM BLOOD BANK TECHNICIAN COVID - 19 07/18/2022 07/18/2022 07/28/2022 12:1 6 AM BLOOD BANK TECHNICIAN COVID - 19 08/21/2022 08/21/2022 08/22/2022 8:31 AM CDT Respiratory Rule Out - RPA 08/21/2022 08/21/2022 0 08/22/2022 3:21 PM CDT COVID - 19 04/18/2023 04/18/2023 04/28/2023 12:1 6 AM BLOOD BANK TECHNICIAN COVID - 19 07/13/2023 07/13/2023 07/23/2023 12:1 6 AM BLOOD BANK TECHNICIAN Respiratory Rule Out - RPA 03/17/2024 03/17/2024 1 3:36 PM CDT COVID - 19 04/27/2024 04/27/2024 04/27/2024 2:19 PM BLOOD BANK TECHNICIAN Respiratory Rule-Out 07/24/2024 07/24/2024 025 2:29 PM BLOOD BANK TECHNICIAN COVID - 19 07/24/2024 07/24/2024 07/24/2024 2:29 PM BLOOD BANK TECHNICIAN COVID - 19 08/22/2024 08/22/2024 08/22/2024 11:4 6 PM CDT COVID - 19 09/03/2024 09/03/2024 09/03/2024 12:4 7 PM CDT Assessment Noted Time PHQ-9 Depression Total Score: 2 06/07/19 21 2:34 PM BLOOD BANK TECHNICIAN documented as of this encounter Care Teams Laundry Machine Tender Relationship Specialty Start Date End Date Keith Craft MD PCP - General Family Medicine 01/14/19 12/26/23 Liz Capellan DO [address] [address] PCP - General Family Medicine 12/27/23 Quang Locke DO Gastroenterology 01/18/16 Bri Rollins, RN [place] Trick Rodeo Rider 03/07/21 05/22/23 [place] [address] [address] 05/25/21 Bri Rollins RN [place] Nurse Trick Rodeo Rider 03/07/21 05/23/23 Werner Swift MD #2 [place] [address] Consulting Physician Pulmonary Disease 01/30/22 Yasmin Restrepo MD #[address] [address] Consulting Physician Endocrinology 07/20/24 Jose Do MD #[address] [address] Consulting Physician Colon and Rectal Surgery 10/12/24 documented as of this encounter
--- OUTSIDE RECORDS SUMMARY | 2024-12-02 13:27 | XMS_ITS | Encounter Summary ---
Author Organization [facility] Address [address] [place] [address] Phone Care Team Providers Care Media Production Support Manager Name Role Phone Quang Locke Unavailable [phone] Keith Craft MD Primary Care Provider [phone] Bri Rollins RN Unavailable Unavailable Silvio Schulte MD Unavailable [phone] rBi Rollins RN Unavailable Unavailable Werner Swift MD Unavailable Liz Capellan DO Primary Care Provider [phone] Yasmin Restrepo MD Unavailable Jose Do MD Unavailable Encounter Details Date Type Department Care Team (Late st Contact Info) Description 04/22/2023 Telephone [facility] [address] [place] [address] Keith Craft MD #1 [place] [address] Social History Tobacco Use Types [...] amitriptyline is ok With levaquine is fine. NT ACQUISITION COORDINATOR * Telephone Encounter - Kunal Garcia RN [...] discontinue? Please review the following potential major [id number]-nd-kutn interactions: DULoxetine and amitriptyline Duloxetine may increase [...] to P Clinical Support Triage or call [facility] [phone] option 4 for a nurse. Response is required within 24 hours to meet regulatory requirements. Thank you NT ACQUISITION COORDINATOR documented in this encounter Plan of Treatment Upcoming Encounters Date Type Department Care Team (Late st Contact Info) Description 12/04/2024 12:45 PM CDT Office Visit [facility] Family Medicine - [place] #2 [place] [address] Ana Vivar APRN, COMMUNITY FUNDRAISER 2 [facility] [address] [place] [address] 12/09/2024 11:15 AM CDT Office Visit [facility] - General Surgery - [place] #[address] [address] Jose Do MD #[address] [address] 01/04/2025 1:30 PM CDT Office Visit [facility] - Pulmonology & Sleep Medicine - [place] #2 [facility] [place] [address] Werner Swift MD #2 [facility] [place] [address] 03/01/2025 1:30 PM CDT Office Visit [facility] Medical [facility] - Endocrinology - [place] #2 [facility] [place] [address] Yasmin Restrepo MD #2 [facility] [address] [place] [address] 05/13/2025 1:20 PM TALENT ACQUISITION COORDINATOR Office Visit [facility] Medical Group - [facility] - [place] #[address] [place] [address] Liz Capellan, DO 2 [facility]. [address] [place] [address] documented as of this encounter Goals Goal [...] Zones/Action plan education. I will notify my Coding Director if my symptoms fall in the [...] 19 04/18/2023 04/18/2023 04/28/2023 12:1 6 AM TALENT ACQUISITION COORDINATOR COVID - 19 07/13/2023 07/13/2023 07/23/2023 12:1 6 AM TALENT ACQUISITION COORDINATOR Respiratory Rule Out - RPA 03/17/2024 03/17/2024 1 3:36 PM CDT COVID - 19 04/27/2024 04/27/2024 04/27/2024 2:19 PM TALENT ACQUISITION COORDINATOR Respiratory Rule-Out 07/24/2024 07/24/2024 2:29 PM TALENT ACQUISITION COORDINATOR COVID - 19 07/24/2024 07/24/2024 07/24/2024 2:29 PM TALENT ACQUISITION COORDINATOR COVID - 19 08/22/2024 08/22/2024 08/22/2024 11:4 6 PM CDT COVID - 19 09/03/2024 09/03/2024 09/03/2024 12:4 7 PM CDT Assessment Noted Time PHQ-9 Depression Total Score: 1 03/07/20 21 10:29 AM CDT documented as of this encounter Care Teams Media Production Support Manager Relationship Specialty Start Date End Date Keith Craft MD PCP - General Family Medicine 01/14/19 12/26/23 Liz Capellan DO [address] [address] PCP - General Family Medicine 12/27/23 Quang Locke DO Gastroenterology 01/18/16 Bri Rollins RN [place] Coding Director 03/07/21 05/22/23 [place] [address] [address] 05/25/21 Bri Rollins, RN [place] Nurse Coding Director 03/07/21 05/23/23 Werner Swift MD #2 [place] [address] Consulting Physician Pulmonary Disease 01/30/22 Yasmin Restrepo MD #[address] [address] Consulting Physician Endocrinology 07/20/24 Jose Do MD #[address] [address] Consulting Physician Colon and Rectal Surgery 10/12/24 documented as of this encounter
--- OUTSIDE RECORDS SUMMARY | 2024-12-02 13:27 | XMS_ITS | Encounter Summary ---
Author Organization [facility] Address [address] [place] [address] Phone Care Team Providers Care Orthodontic Assistant Name Role Phone Quang Locke Unavailable [phone] Keith Craft MD Primary Care Provider [phone] Bri Rollins RN Unavailable Unavailable Silvio Schulte MD Unavailable [phone] Bri Rollins RN Unavailable Unavailable Werner Swift MD Unavailable Liz Capellan DO Primary Care Provider [phone] Yasmin Restrepo MD Unavailable Jose Do MD Unavailable Reason for Visit * Reason Comments Medication Refill Dexilant Encounter Details Date Type Department Care Team (Late st Contact Info) Description 04/09/2020 Refill [facility] Medical Group - Family Medicine [facility] #2 [place] [address] Keith Craft MD #1 [place] [address] Medication Refill (Dexilant) Social History Tobacco Use [...] Piotr Aguirre RN - 04/09/2020 9:41 AM TREE TRIMMER Requested Prescriptions Pending Prescriptions Disp Refills ??? Dexilant 60 MG CAPSULE DELAYED RELEASE [Pharmacy Med Name: DEXILANT DR 60 MG CAPSULE] 90 Cap 3 Sig: TAKE 1 CAPSULE BY MOUTH EVERY DAY Above medication pended for your approval. Last refill: 01/14/19 #90/3 Last office visit: 02/02/20 Next visit: 06/07/20 TRIMMER documented in this encounter Plan of Treatment Upcoming Encounters Date Type Department Care Team (Late st Contact Info) Description 12/04/2024 12:45 PM CDT Office Visit [facility] Medical Group - Family Medicine - [place] #2 [place] [address] Ana Vivar, HOGSHEAD ROLLER, LIVESTOCK BRANDS INSPECTOR 2 [facility]. [address] [place] [address] 12/09/2024 11:15 AM CDT Office Visit [facility] Medical Group - General Surgery - [place] #2 [facility] [address] [place] [address] Jose Do MD #2 [facility] [address] [place] [address] 01/04/2025 1:30 PM CDT Office Visit [facility] - Pulmonology & Sleep Medicine - [place] #2 [place] [address] Werner Swift MD #2 [place] [address] 03/01/2025 1:30 PM CDT Office Visit [facility] Endocrinology - [place] #[address] [place] [address] Yasmin Restrepo MD #[address] [address] 05/13/2025 1:20 PM TREE TRIMMER Office Visit [facility] Family Medicine - [place] #2 [place] [address] Liz Capellan, DO [address] [address] documented as of this encounter Visit Diagnoses Diagnosis Gastroesophageal reflux disease without esophagitis Esophageal reflux documented in this encounter Additional Health Concerns Infection Onset Date Last Indicated Resolved Time COVID - 19 01/25/2021 01/25/2021 01/31/2021 8:10 AM CDT Respiratory Rule Out - RPA 01/30/2021 01/30/2021 0 02/01/2021 12:45 AM CDT COVID - 19 07/23/2021 07/23/2021 07/24/2021 6:31 AM TREE TRIMMER COVID - 19 10/19/2021 10/19/2021 10/20/2021 7:45 AM CDT Respiratory Rule Out - RPA 10/19/2021 10/19/2021 0 10/20/2021 2:10 PM CDT Stenotrophomonas maltophilia Comment:Must have a follow up respiratory sample to remove isolation/infection flag. 10/20/2021 10/20/2021 COVID - 19 04/20/2022 04/20/2022 04/30/2022 12:1 8 AM TREE TRIMMER COVID - 19 07/18/2022 07/18/2022 07/28/2022 12:1 6 AM TREE TRIMMER COVID - 19 08/21/2022 08/21/2022 08/22/2022 8:31 AM CDT Respiratory Rule Out - RPA 08/21/2022 08/21/2022 0 08/22/2022 3:21 PM CDT COVID - 19 04/18/2023 04/18/2023 04/28/2023 12:1 6 AM TREE TRIMMER COVID - 19 07/13/2023 07/13/2023 07/23/2023 12:1 6 AM TREE TRIMMER Respiratory Rule Out - RPA 03/17/2024 03/17/2024 1 3:36 PM CDT COVID - 19 04/27/2024 04/27/2024 04/27/2024 2:19 PM TREE TRIMMER Respiratory Rule-Out 07/24/2024 07/24/2024 025 2:29 PM TREE TRIMMER COVID - 19 07/24/2024 07/24/2024 07/24/2024 2:29 PM TREE TRIMMER COVID - 19 08/22/2024 08/22/2024 08/22/2024 11:4 6 PM CDT COVID - 19 09/03/2024 09/03/2024 09/03/2024 12:4 7 PM CDT Assessment Noted Time PHQ-9 Depression Total Score: 1 06/10/19 20 1:03 PM TREE TRIMMER documented as of this encounter Care Teams Orthodontic Assistant Relationship Specialty Start Date End Date Keith Craft MD PCP - General Family Medicine 01/14/19 12/26/23 Liz Capellan DO [address] [address] PCP - General Family Medicine 12/27/23 Quang Locke DO Gastroenterology 01/18/16 Bri Rollins, RN [place] Heavy Duty Custodian 03/07/21 05/22/23 [place] [address] [address] 05/25/21 Bri Rollins, KATEY [place] Nurse Heavy Duty Custodian 03/07/21 05/23/23 Werner Swift MD #2 [place] [address] Consulting Physician Pulmonary Disease 01/30/22 Yasmin Restrepo MD #[address] [address] Consulting Physician Endocrinology 07/20/24 Jose Do MD #[address] [address] Consulting Physician Colon and Rectal Surgery 10/12/24 documented as of this encounter
--- OUTSIDE RECORDS SUMMARY | 2024-12-02 13:27 | XMS_ITS | Encounter Summary ---
Author Organization [facility] Address [address] [place] [address] Phone Care Team Providers Care Toll Mechanic Name Role Phone Quang Locke Unavailable [phone] Keith Craft MD Primary Care Provider [phone] Bri Rollins RN Unavailable Unavailable Silvio Schulte MD Unavailable [phone] Bri Rollins RN Unavailable Unavailable Werner Swift MD Unavailable Liz Capellan DO Primary Care Provider [phone] Yasmin Restrepo MD Unavailable Jose Do MD Unavailable Reason for Visit * Reason Comments Medication Refill Encounter Details Date Type Department Care Team (Late st Contact Info) Description 12/04/2019 [facility]ill [facility] #2 [place] [address] Keith Craft MD #1 [place] [address] Medication Refill Social History Tobacco Use Types [...] 4 months ago Coronary artery disease involving [place] coronary artery of [place] heart without angina pectoris [facility] Keith Elizalde MD 6 months ago COPD exacerbation (HCC) [facility] Brie Calderon PAC 7 months ago Type 2 diabetes mellitus with diabetic neuropathy, with long-term current use of insulin (HCC) [facility] Keith Elizalde MD 10 months ago Type 2 diabetes mellitus with diabetic neuropathy, with long-term current use of insulin (HCC) [facility] Keith Elizalde MD Upcoming Appointments Future Appointments In 1 month Keith Craft MD [facility] documented in this encounter Plan of Treatment Upcoming Encounters Date Type Department Care Team (Late st Contact Info) Description 12/04/2024 12:45 PM CDT Office Visit [facility] - Family Medicine - [place] #2 [place] [address] Ana Vivar, WATER AND SEWER SYSTEMS SUPERVISOR, MANAGER IT SECURITY 2 [facility]. [address] [place] [address] 12/09/2024 11:15 AM CDT Office Visit [facility] - General Surgery - [place] #2 [facility] [address] [place] [address] Jose Do MD #2 [facility] [address] [place] [address] 01/04/2025 1:30 PM CDT Office Visit [facility] - Pulmonology & Sleep Medicine - [place] #2 [place] [address] Werner Swift MD #2 [facility] [address] 03/01/2025 1:30 PM CDT Office Visit [facility] - Endocrinology - [place] #2 [place] [address] Yasmin Restrepo MD #[address] [place] [address] 05/13/2025 1:20 PM BIOMEDICAL EQUIPMENT TECH Office Visit [facility] - Family Medicine - [place] #2 [place] [address] Liz Caepllan, DO 2 [facility] [address] [place] [address] documented as of this encounter Visit Diagnoses Diagnosis Anxiety and depression Dysthymic disorder documented in this encounter Additional Health Concerns Infection Onset Date Last Indicated Resolved Time COVID - 19 01/25/2021 01/25/2021 01/31/2021 8:10 AM CDT Respiratory Rule Out - RPA 01/30/2021 01/30/2021 0 02/01/2021 12:45 AM CDT COVID - 19 07/23/2021 07/23/2021 07/24/2021 6:31 AM BIOMEDICAL EQUIPMENT TECH COVID - 19 10/19/2021 10/19/2021 10/20/2021 7:45 AM CDT Respiratory Rule Out - RPA 10/19/2021 10/19/2021 0 10/20/2021 2:10 PM CDT Stenotrophomonas maltophilia Comment:Must have a follow up respiratory sample to remove isolation/infection flag. 10/20/2021 10/20/2021 COVID - 19 04/20/2022 04/20/2022 04/30/2022 12:1 8 AM BIOMEDICAL EQUIPMENT TECH COVID - 19 07/18/2022 07/18/2022 07/28/2022 12:1 6 AM BIOMEDICAL EQUIPMENT TECH COVID - 19 08/21/2022 08/21/2022 08/22/2022 8:31 AM CDT Respiratory Rule Out - RPA 08/21/2022 08/21/2022 0 08/22/2022 3:21 PM CDT COVID - 19 04/18/2023 04/18/2023 04/28/2023 12:1 6 AM BIOMEDICAL EQUIPMENT TECH COVID - 19 07/13/2023 07/13/2023 07/23/2023 12:1 6 AM BIOMEDICAL EQUIPMENT TECH Respiratory Rule Out - RPA 03/17/2024 03/17/2024 1 3:36 PM CDT COVID - 19 04/27/2024 04/27/2024 04/27/2024 2:19 PM BIOMEDICAL EQUIPMENT TECH Respiratory Rule-Out 07/24/2024 07/24/2024 025 2:29 PM BIOMEDICAL EQUIPMENT TECH COVID - 19 07/24/2024 07/24/2024 07/24/2024 2:29 PM BIOMEDICAL EQUIPMENT TECH COVID - 19 08/22/2024 08/22/2024 08/22/2024 11:4 6 PM CDT COVID - 19 09/03/2024 09/03/2024 09/03/2024 12:4 7 PM CDT Assessment Noted Time PHQ-9 Depression Total Score: 1 06/10/19 20 1:03 PM BIOMEDICAL EQUIPMENT TECH documented as of this encounter Care Teams Toll Mechanic Relationship Specialty Start Date End Date Keith Craft MD PCP - General Family Medicine 01/14/19 12/26/23 Liz Capellan DO [address] [address] PCP - General Family Medicine 12/27/23 Quang Locke DO Gastroenterology 01/18/16 Bri Rollins, RN [place] Youth Services Specialist 03/07/21 05/22/23 [place] [id number] [address] 05/25/21 Bri Rollins, RN [place] Nurse Youth Services Specialist 03/07/21 05/23/23 Werner Swift MD #2 [place] [phone] Consulting Physician Pulmonary Disease 01/30/22 Yasmin Restrepo MD #[address] [phone] Consulting Physician Endocrinology 07/20/24 Jose Do MD #2 [place] [address] Consulting Physician Colon and Rectal Surgery 10/12/24 documented as of this encounter
--- OUTSIDE RECORDS SUMMARY | 2024-12-02 13:27 | XMS_ITS | Encounter Summary ---
Author Organization [facility] Address [address] [place] [address] Phone Care Team Providers Care Shank Archer Name Role Phone Quang Locke Unavailable [phone] Keith Craft MD Primary Care Provider [phone] Bri Rollins RN Unavailable Unavailable Silvio Schulte MD Unavailable [phone] Bri Rollins RN Unavailable Unavailable Werner Swift MD Unavailable Liz Capellan DO Primary Care Provider [phone] Yasmin Restrepo MD Unavailable Jose Do MD Unavailable Reason for Visit * Reason Comments Medication Refill Encounter Details Date Type Department Care Team (Late st Contact Info) Description 05/09/2020 Refill [facility] #2 [place] [address] Keith Craft MD #1 [place] [address] Medication Refill Social History Tobacco Use Types [...] COVID-19? No / Unsure 04/25/2020 1:42 PM METALSMITH HELPER documented as of this encounter Miscellaneous [...] [facility] Keith Lemus MD 3 months ago Acute non-recurrent maxillary sinusitis [facility] Keith Lemus MD 6 months ago Chronic prescription opiate use [facility] Keith Lemus MD 9 months ago Coronary artery disease involving [place] coronary artery of [place] heart without angina pectoris [facility] Keith Lemus MD 11 months ago COPD exacerbation (HCC) [facility] Brie Vieira, PAC Upcoming Appointments Future Appointments In 4 weeks Keith Craft MD [facility], [facility] DIAMOND DRILLER HELPER - Recent and Past Visits Recent Visits Date Type Provider Dept 04/25/20 Office Visit Keith Craft MD [facility] 02/02/20 Office Visit Keith Craft MD [facility] 11/02/19 Office Visit Keith Craft MD [facility] 07/27/19 Office Visit Keith Craft MD [facility] 06/10/19 Office Visit Brie Denis PAC [facility] 04/20/19 Office Visit Keith Craft MD [facility] Showing recent visits within past [...] Readings from Last 1 Encounters: 04/25/20 104/62 LSMITH HELPER documented in this encounter Plan of Treatment Upcoming Encounters Date Type Department Care Team (Late st Contact Info) Description 12/04/2024 12:45 PM CDT Office Visit [facility] - [place] #2 [place] [address] Ana Vivar APRN, WAFER MOUNTER 2 [facility] 205 [place] [address] 12/09/2024 11:15 AM CDT Office Visit [facility] General Surgery - [place] #[address] [address] Jose Do MD #[address] [address] 01/04/2025 1:30 PM CDT Office Visit [facility] - Pulmonology & Sleep Medicine - [place] #2 [place] [address] Werner Swift MD #2 [place] [address] 03/01/2025 1:30 PM CDT Office Visit [facility] - Endocrinology - [place] #2 [facility] [place] [address] Yasmin Restrepo MD #[address] [address] 05/13/2025 1:20 PM METALSMITH HELPER Office Visit [facility] - Family Medicine - [place] #2 [place] [address] Liz Capellan, DO [address] [address] documented as of this encounter Visit Diagnoses [...] - 19 07/23/2021 07/23/2021 07/24/2021 6:31 AM METALSMITH HELPER COVID - 19 10/19/2021 10/19/2021 10/20/2021 7:45 AM CDT Respiratory Rule Out - RPA 10/19/2021 10/19/2021 0 10/20/2021 2:10 PM CDT Stenotrophomonas maltophilia Comment:Must have a follow up respiratory sample to remove isolation/infection flag. 10/20/2021 10/20/2021 COVID - 19 04/20/2022 04/20/2022 04/30/2022 12:1 8 AM METALSMITH HELPER COVID - 19 07/18/2022 07/18/2022 07/28/2022 12:1 6 AM METALSMITH HELPER COVID - 19 08/21/2022 08/21/2022 08/22/2022 8:31 AM CDT Respiratory Rule Out - RPA 08/21/2022 08/21/2022 0 08/22/2022 3:21 PM CDT COVID - 19 04/18/2023 04/18/2023 04/28/2023 12:1 6 AM METALSMITH HELPER COVID - 19 07/13/2023 07/13/2023 07/23/2023 12:1 6 AM METALSMITH HELPER Respiratory Rule Out - RPA 03/17/2024 03/17/2024 1 3:36 PM CDT COVID - 19 04/27/2024 04/27/2024 04/27/2024 2:19 PM METALSMITH HELPER Respiratory Rule-Out 07/24/2024 07/24/2024 025 2:29 PM METALSMITH HELPER COVID - 19 07/24/2024 07/24/2024 07/24/2024 2:29 PM METALSMITH HELPER COVID - 19 08/22/2024 08/22/2024 08/22/2024 11:4 6 PM CDT COVID - 19 09/03/2024 09/03/2024 09/03/2024 12:4 7 PM CDT Assessment Noted Time PHQ-9 Depression Total Score: 1 06/10/19 20 1:03 PM METALSMITH HELPER documented as of this encounter Care Teams Shank Archer Relationship Specialty Start Date End Date Keith Craft MD PCP - General Family Medicine 01/14/19 12/26/23 Liz Capellan DO 2 [facility] JEFFREY MILE [address] [address] PCP - General Family Medicine 12/27/23 Quang Locke DO Gastroenterology 01/18/16 Bri Rollins, RN [place] Facilities Project Manager 03/07/21 05/22/23 [place] [id number] [address] 05/25/21 Bri Rollins RN [place] Nurse Facilities Project Manager 03/07/21 05/23/23 Werner Swift MD #2 [place] [address] Consulting Physician Pulmonary Disease 01/30/22 Yasmin Restrepo MD #[address] [address] Consulting Physician Endocrinology 07/20/24 Jose Do MD #[address] [phone] Consulting Physician Colon and Rectal Surgery 10/12/24 documented as of this encounter
--- OUTSIDE RECORDS SUMMARY | 2024-12-02 13:27 | XMS_ITS | Encounter Summary ---
Author Organization [facility] Address [address] [place] [address] Phone Care Team Providers Care Zigzagger Name Role Phone Quang Locke Oswaldo PRESLEY Unavailable [phone] Silvio Schulte MD Unavailable [phone] Werner Swift MD Unavailable Liz Capelaln DO Primary Care Provider Yasmin Restrepo MD Unavailable Jose Do MD Unavailable Reason for Visit * Reason Comments Medication Refill Encounter Details Date Type Department Care Team (Late st Contact Info) Description 07/20/[address] [facility] [address] [place] [address] Keith Craft MD #1 [place] [address] Medication Refill Social History Tobacco Use Types Packs/Day Years Used Date Smoking Tobacco: Former Cigarettes 2 50 1 - 03/16/2018 Smokeless Tobacco: Never Comments:Still uses nictoine patches and gum Alcohol Use Standard Drinks/Week Comments No 0 (1 standard drink = 0.6 oz pur e alcohol) [facility] Utilities Answer Date Recorded In the past 12 months has e electric, gas, oil, or water company threatened to shut off services in your home? No 07/23/2024 Social Connection and Isolation Panel Answer Date Recorded In a typical week, how many times do you talk on the phone with family, friends, or neighbors? More than three times a week 07/23/2024 How often do you get togethe r with friends or relatives? More than three times a week 07/23/2024 How often do you attend chur ch or voodoo services? Patient declined 07/23/2024 Do you belong [...] Total Score - Questions 1-9 0 06/27 [facility] [employer] [employer] [place] [employer] Occupat ional [facility] - Occupational Stress [...] time in the past 12 m [facility], were you homeless or living in a long-term (including now)? No 07/23/2024 Education Answer Date [...] AUDIT-C Score Answer Date of Assessment Author -1 07/23/2024 12:19 PM BLOOD BANK COORDINATOR [facility], System Background * Q1: How often do you have a drink containing alcohol? Answer Date of Assessment Author Patient declined 07/23/2024 12:19 PM BLOOD BANK COORDINATOR [facility] , System Background * Q2: How many drinks containing alcohol do you have on a typical day when you are drinking? Answer Date of Assessment Author Patient declined 07/23/2024 12:19 PM BLOOD BANK COORDINATOR [facility] , System Background * Q3: How often do you have six or more drinks on one occasion? Answer Date of Assessment Author Patient declined 07/23/2024 12:19 PM BLOOD BANK COORDINATOR [facility] , System Background documented as of this encounter Miscellaneous Notes * Telephone Encounter - Gloria Cornejo RN - 07/20/2024 10:55 AM CST Images from the original note were not included. Name from pharmacy: NOVOLOG FLEXPEN FLEXPEN SOLN PEN-INJ Will file in chart as: NovoLOG FlexPen 100 UNIT/ML Solution Pen-injector The original prescription was discontinued on 12/27/2023 by Liz Capellan DO D BANK COORDINATOR documented in this encounter Plan of Treatment Upcoming Encounters Date Type Department Care Team (Late st Contact Info) Description 12/04/2024 12:45 PM CDT Office Visit [facility] - Family Medicine - [place] #2 [place] [address] Ana Vivar, REBECCA, DONOR SPECIALIST 2 [facility]. [address] [place] [address] 12/09/2024 11:15 AM CDT Office Visit [facility] - General Surgery - [place] #2 [facility] 305 [place] [address] Jose Do MD #2 [facility] [address] [place] [address] 01/04/2025 1:30 PM CDT Office Visit [facility] - Pulmonology & Sleep Medicine - [place] #2 [place] [address] Werner Swift MD #2 [place] [address] 03/01/2025 1:30 PM CDT Office Visit [facility] - Endocrinology - [place] #2 [place] [address] Yasmin Restrepo MD #[address] [address] 05/13/2025 1:20 PM BLOOD BANK COORDINATOR Office Visit [facility] Family Medicine - [place] #2 [place] [address] Liz Capellan, DO [address] [address] documented as of this encounter Goals Goal [...] Zones/Action plan education. I will notify my Sparmaker if my symptoms fall in the y ellow zone . I will consider receiving an influenza and pneumonia vaccination, if applicable. -I will call the office if I experience any symptoms listed above to discuss at home management options. documented as of this encounter Visit Diagnoses Diagnosis Type 2 diabetes mellitus with diabetic neuropathy, with long-term current use of insulin ([facility]) documented in this encounter Additional Health Concerns Infection Onset Date Last Indicated Resolved Time Stenotrophomonas maltophilia Comment:Must have a follow up respiratory sample to remove isolation/infection flag. 10/20/2021 10/20/2021 Respiratory Rule-Out 07/24/2024 07/24/2024 025 2:29 PM BLOOD BANK COORDINATOR COVID - 19 07/24/2024 07/24/2024 07/24/2024 2:29 PM BLOOD BANK COORDINATOR COVID - 19 08/22/2024 08/22/2024 08/22/2024 11:4 6 PM CDT COVID - 19 09/03/2024 09/03/2024 09/03/2024 12:4 7 PM CDT Assessment Noted Time PHQ-9 Depression Total Score: 0 07/13/19 25 1:20 PM BLOOD BANK COORDINATOR documented as of this encounter Care Teams Zigzagger Relationship Specialty Start Date End Date Liz Capellan DO [address] [address] PCP - General Family Medicine 12/27/23 Quang Locke DO Gastroenterology 01/18/16 [place] [address] [address] 05/25/21 Werner Swift MD #2 [place] [address] Consulting Physician Pulmonary Disease 01/30/22 Yasmin Restrepo MD #2 [facility] [address] [place] [address] Consulting Physician Endocrinology 07/20/24 Jose Do MD #[address] [address] Consulting Physician Colon and Rectal Surgery 10/12/24 documented as of this encounter
--- OUTSIDE RECORDS SUMMARY | 2024-12-02 13:27 | XMS_ITS | Encounter Summary ---
Author Organization [facility] Address [address] [place] [address] Phone Care Team Providers Care Stab Setter And Driller Name Role Phone Quang Locke Unavailable [phone] Keith Craft MD Primary Care Provider [phone] Bri Rollins RN Unavailable Unavailable Silvio Schulte MD Unavailable [phone] Bri Rollins RN Unavailable Unavailable Werner Swift MD Unavailable Liz Capellan DO Primary Care Provider [phone] Yasmin Restrepo MD Unavailable Jose Do MD Unavailable Reason for Visit * Reason Comments Medication Refill Encounter Details Date Type Department Care Team (Late st Contact Info) Description 09/01/2021 Refill [facility] - Family Medicine [facility] #2 [place] [address] Keith Craft MD #1 [place] [address] Medication Refill Social History Tobacco Use Types [...] RN - 09/01/2021 12:56 PM CDT [facility] [place] 08/10/21 - Diazepam 07/31/21 Medication failed the [...] Dept 08/14/21 Office Visit Keith Craft MD [facility] 07/31/21 Office Visit Keith Craft MD [facility] 05/25/21 Office Visit Marcin Anderson, CHECKER LOADER, JAKOB [facility] [place] 05/05/21 Office Visit Brie Denis, NICOLE [facility] [place] 04/14/21 Office Visit Keith Craft MD [facility] [place] 03/23/21 Office Visit Keith Craft MD [facility] 02/07/21 Office Visit Keith Craft MD [facility] 02/03/21 Office Visit Brie Denis, PAC [facility] 01/12/21 Office Visit Keith Craft MD [facility] 10/12/20 Office Visit Keith Craft, [facility] Showing recent visits within past 365 days and meeting all other requirements Future Appointments Date Type Provider Dept 09/08/21 Appointment Brie Denis PAC [facility] [place] Showing future appointments within next 90 days [...] 08/14/21 Office Visit Keith Craft MD [facility] 07/31/21 Office Visit Keith Craft MD [facility] [place] 05/25/21 Office Visit Marcin Anderson APRN, COUNTY SUPERVISOR [facility] 05/05/21 Office Visit Brie Denis, PAC [facility] 04/14/21 Office Visit Keith Craft MD [facility] [place] 03/23/21 Office Visit Keith Craft MD [facility] 02/07/21 Office Visit Keith Craft MD [facility] [place] 02/03/21 Office Visit Brie Denis, PAC [facility] [place] 01/12/21 Office Visit Keith Craft MD [facility] 10/12/20 Office Visit Keith Craft MD [facility] Showing recent visits within past 365 days and meeting all other requirements Future Appointments Date Type Provider Dept 09/08/21 Appointment Brie Denis, [facility] Showing future appointments within next 90 days and meeting all other requirements documented in this encounter Plan of Treatment Upcoming Encounters Date Type Department Care Team (Late st Contact Info) Description 12/04/2024 12:45 PM CDT Office Visit [facility] Family Medicine - [place] #2 [place] [address] Ana Vivar, CHECKER LOADER, COUNTY SUPERVISOR 2 [facility]. [address] [place] [address] 12/09/2024 11:15 AM CDT Office Visit [facility] - General Surgery - [place] #2 [facility] [address] [place] [address] Jose Do MD #2 [facility] [address] [place] [address] 01/04/2025 1:30 PM CDT Office Visit [facility] - Pulmonology & Sleep Medicine - [place] #2 [facility] [place] [address] Werner Swift MD #2 [place] [address] 03/01/2025 1:30 PM CDT Office Visit [facility] - Endocrinology - [place] #2 [facility] [place] [address] Yasmin Restrepo MD #[address] [place] [address] 05/13/2025 1:20 PM UTILITY PLANT OPERATIVE [facility] - [place] #2 [place] [address] Liz Capellan, DO 2 [facility] [address] [address] documented as of this encounter Goals Goal [...] plan education. I will notify my Electrical Installation Supervisor if my symptoms fall in the [...] 19 04/20/2022 04/20/2022 04/30/2022 12:1 8 AM UTILITY PLANT OPERATIVE COVID - 19 07/18/2022 07/18/2022 07/28/2022 12:1 6 AM UTILITY PLANT OPERATIVE COVID - 19 08/21/2022 08/21/2022 08/22/2022 8:31 AM CDT Respiratory Rule Out - RPA 08/21/2022 08/21/2022 0 08/22/2022 3:21 PM CDT COVID - 19 04/18/2023 04/18/2023 04/28/2023 12:1 6 AM UTILITY PLANT OPERATIVE COVID - 19 07/13/2023 07/13/2023 07/23/2023 12:1 6 AM UTILITY PLANT OPERATIVE Respiratory Rule Out - RPA 03/17/2024 03/17/2024 1 3:36 PM CDT COVID - 19 04/27/2024 04/27/2024 04/27/2024 2:19 PM UTILITY PLANT OPERATIVE Respiratory Rule-Out 07/24/2024 07/24/2024 025 2:29 PM UTILITY PLANT OPERATIVE COVID - 19 07/24/2024 07/24/2024 07/24/2024 2:29 PM UTILITY PLANT OPERATIVE COVID - 19 08/22/2024 08/22/2024 08/22/2024 11:4 6 PM CDT COVID - 19 09/03/2024 09/03/2024 09/03/2024 12:4 7 PM CDT Assessment Noted Time PHQ-9 Depression Total Score: 1 03/07/20 21 10:29 AM CDT documented as of this encounter Care Teams Stab Setter And Driller Relationship Specialty Start Date End Date Keith Craft MD PCP - General Family Medicine 01/14/19 12/26/23 Liz Capellan DO [address] [address] PCP - General Family Medicine 12/27/23 Quang Locke DO Gastroenterology 01/18/16 Bri Rollins, RN [place] Electrical Installation Supervisor 03/07/21 05/22/23 [place] [address] [address] 05/25/21 Bri Rollins RN [place] Nurse Electrical Installation Supervisor 03/07/21 05/23/23 Werner Swift MD #2 [place] [address] Consulting Physician Pulmonary Disease 01/30/22 Yasmin Restrepo MD #[address] [address] Consulting Physician Endocrinology 07/20/24 Jose Do MD #[address] [id number] Consulting Physician Colon and Rectal Surgery 10/12/24 documented as of this encounter
--- OUTSIDE RECORDS SUMMARY | 2024-12-02 13:27 | XMS_ITS | Encounter Summary ---
Author Organization [facility] Address [address] [place] [address] Phone Care Team Providers Care Lead Pressman [employer]oto [employer] Printing Name Role Phone Quang Locke Unavailable [phone] Keith Craft MD Primary Care Provider [phone] Bri Rollins RN Unavailable Unavailable Silvio Schulte MD Unavailable [phone] Bri Rollins RN Unavailable Unavailable Werner Swift MD Unavailable Liz Capellan DO Primary Care Provider [phone] Yasmin Restrepo MD Unavailable Jose Do MD Unavailable Reason for Visit * Reason Comments Medication Refill Encounter Details Date Type Department Care Team (Late st Contact Info) Description 02/03/2020 Refill [facility] #2 [place] [address] Keith Craft MD #1 [place] [address] Medication Refill Social History Tobacco Use Types [...] DIAZEPAM 01/06/2020 01/06/2020 10MG 30 0 30 TRAVIS SHAWN M MD [facility] DIAZEPAM 12/07/2019 12/07/2019 10MG 30 0 30 TRAVIS SHAWN M MD [facility] Pharm[facility] DIAZEPAM 11/05/2019 11/05/2019 10MG 30 0 30 TRAVIS SHAWN M MD [facility] Pharmacy External Sources Source Last Checked for Updates Status [facility] 02/03/2020 9:25 AM History Response Filed documented in this encounter Plan of Treatment Upcoming Encounters Date Type Department Care Team (Late st Contact Info) Description 12/04/2024 12:45 PM CDT Office Visit [facility] - [facility] Medicine - [place] #2 [place] [address] Ana Vivar, FLAKING ROLL OPERATOR, EDUCATIONAL DIAGNOSTICIAN 2 [facility] [address] [place] [address] 12/09/2024 11:15 AM CDT Office Visit [facility] - General Surgery - [place] [address] [place] [address] Jose Do MD #[address] [place] [address] 01/04/2025 1:30 PM CDT Office Visit [facility] - Pulmonology & Sleep Medicine - [place] #2 [place] [address] Werner Swift MD #2 [facility] [address] 03/01/2025 1:30 PM CDT Office Visit [facility] - Endocrinology - [place] #2 [place] [address] Yasmin Restrepo MD #[address] [place] [address] 05/13/2025 1:20 PM DELIVERY REP Office Visit [facility] - Family Medicine - [place] #2 [place] [address] Liz Capellan, DO 2 [facility] [address] [place] [address] documented as of this encounter Visit Diagnoses Diagnosis Anxiety and depression Dysthymic disorder documented in this encounter Additional Health Concerns Infection Onset Date Last Indicated Resolved Time COVID - 19 01/25/2021 01/25/2021 01/31/2021 8:10 AM CDT Respiratory Rule Out - RPA 01/30/2021 01/30/2021 0 02/01/2021 12:45 AM CDT COVID - 19 07/23/2021 07/23/2021 07/24/2021 6:31 AM DELIVERY REP COVID - 19 10/19/2021 10/19/2021 10/20/2021 7:45 AM CDT Respiratory Rule Out - RPA 10/19/2021 10/19/2021 0 10/20/2021 2:10 PM CDT Stenotrophomonas maltophilia Comment:Must have a follow up respiratory sample to remove isolation/infection flag. 10/20/2021 10/20/2021 COVID - 19 04/20/2022 04/20/2022 04/30/2022 12:1 8 AM DELIVERY REP COVID - 19 07/18/2022 07/18/2022 07/28/2022 12:1 6 AM DELIVERY REP COVID - 19 08/21/2022 08/21/2022 08/22/2022 8:31 AM CDT Respiratory Rule Out - RPA 08/21/2022 08/21/2022 0 08/22/2022 3:21 PM CDT COVID - 19 04/18/2023 04/18/2023 04/28/2023 12:1 6 AM DELIVERY REP COVID - 19 07/13/2023 07/13/2023 07/23/2023 12:1 6 AM DELIVERY REP Respiratory Rule Out - RPA 03/17/2024 03/17/2024 1 3:36 PM CDT COVID - 19 04/27/2024 04/27/2024 04/27/2024 2:19 PM DELIVERY REP Respiratory Rule-Out 07/24/2024 07/24/2024 025 2:29 PM DELIVERY REP COVID - 19 07/24/2024 07/24/2024 07/24/2024 2:29 PM DELIVERY REP COVID - 19 08/22/2024 08/22/2024 08/22/2024 11:4 6 PM CDT COVID - 19 09/03/2024 09/03/2024 09/03/2024 12:4 7 PM CDT Assessment Noted Time PHQ-9 Depression Total Score: 1 06/10/19 20 1:03 PM DELIVERY REP documented as of this encounter Care Teams Lead Pressman R[employer] Printing Relationship Specialty Start Date End Date Craft, Keith M, MD PCP - General Family Medicine 01/14/19 12/26/23 Liz Capellan DO 2 [facility] [address] [place] [address] PCP - General Family Medicine 12/27/23 Quang Locke DO Gastroenterology 01/18/16 Bri Rollins, RN [place] Concrete Stone Finishing Supervisor 03/07/21 05/22/23 [place] [id number] [address] 05/25/21 Bri Rollins, RN [place] Nurse Concrete Stone Finishing Supervisor 03/07/21 05/23/23 Werner Swift MD #2 [place] [address] Consulting Physician Pulmonary Disease 01/30/22 Yasmin Restrepo MD #[address] [phone] Consulting Physician Endocrinology 07/20/24 Jose Do MD #[address] [address] Consulting Physician Colon and Rectal Surgery 10/12/24 documented as of this encounter
--- OUTSIDE RECORDS SUMMARY | 2024-12-02 13:27 | XMS_ITS | Encounter Summary ---
Author Organization [facility] Address [address] [place] [address] Phone Care Team Providers Care Printing Plate Clerk Name Role Phone Quang Locke Unavailable [phone] Keith Craft MD Primary Care Provider [phone] Bri Rollins RN Unavailable Unavailable Silvio Schulte MD Unavailable [phone] Bri Rollins RN Unavailable Unavailable Werner Swift MD Unavailable Liz Capellan DO Primary Care Provider [phone] Yasmin Restrepo MD Unavailable Jose Do MD Unavailable Reason for Visit * Reason Comments Medication Refill Encounter Details Date Type Department Care Team (Late st Contact Info) Description 07/01/2020 Refill [facility] #2 [place] [phone] Yonathan Bonilla MD [address] [address] Medication Refill Social History Tobacco Use Types [...] COVID-19? No / Unsure 07/02/2020 2:53 PM RETAIL SALES ASSOCIATE BILINGUAL documented as of this encounter Miscellaneous Notes [...] Outpatient Visits 3 weeks ago Mixed hyperlipidemia [facility] Keith Lemus MD 2 months ago Pneumonia of right upper lobe due to infectious organism [facility] Keith Lemus MD 5 months ago Acute non-recurrent maxillary sinusitis [facility] Keith Lemus MD 8 months ago Chronic prescription opiate use [facility] Keith Lemus MD 11 months ago Coronary artery disease involving [place] coronary artery of [place] heart without angina pectoris [facility] Keith Lemus MD Upcoming Appointments Future Appointments In 3 months Keith Craft MD [facility] [place], [facility] AUDITOR TAX - Recent and Past Visits Recent Visits Date Type Provider Dept 06/07/20 Office Visit Keith Craft MD [facility] 04/25/20 Office Visit Keith Craft MD [facility] 02/02/20 Office Visit Keith Craft MD [facility] 11/02/19 Office Visit Keith Craft MD [facility] 07/27/19 Office Visit Keith Craft MD [facility] 06/10/19 [facility] Visit [facility] 04/20/19 Office Visit Keith Craft MD [facility] Showing recent visits within past 460 days with a meds authorizing provider and meeting all other requirements Future Appointments No visits were found meeting these conditions. Showing future appointments within next 90 days with a meds authorizing provider and meeting all other requirements [place] SALES ASSOCIATE BILINGUAL documented in this encounter Plan of Treatment Upcoming Encounters Date Type Department Care Team (Late st Contact Info) Description 12/04/2024 12:45 PM CDT Office Visit [facility] [place] #2 [place] [address] Ana Vivar, WASTE SALVAGER, GUARD RANGE 2 [facility] [address] [place] [address] 12/09/2024 11:15 AM CDT Office Visit [facility] - General Surgery - [place] #2 [facility] [address] [place] [address] Jose Do MD #[address] [address] 01/04/2025 1:30 PM CDT Office Visit [facility] - Pulmonology & Sleep Medicine - [place] #2 [place] [address] Werner Swift MD #2 [place] [address] 03/01/2025 1:30 PM CDT Office Visit [facility] - Endocrinology - [place] #2 [place] [address] Yasmin Restrepo MD #[address] [address] 05/13/2025 1:20 PM RETAIL SALES ASSOCIATE BILINGUAL Office Visit [facility] - Family Medicine - [place] #2 [place] [address] Liz Capellan, DO [address] [address] documented as of this encounter Visit Diagnoses Diagnosis Anxiety and depression Dysthymic disorder documented in this encounter Additional Health Concerns Infection Onset Date Last Indicated Resolved Time COVID - 19 01/25/2021 01/25/2021 01/31/2021 8:10 AM CDT Respiratory Rule Out - RPA 01/30/2021 01/30/2021 0 02/01/2021 12:45 AM CDT COVID - 19 07/23/2021 07/23/2021 07/24/2021 6:31 AM RETAIL SALES ASSOCIATE BILINGUAL COVID - 19 10/19/2021 10/19/2021 10/20/2021 7:45 AM CDT Respiratory Rule Out - RPA 10/19/2021 10/19/2021 0 10/20/2021 2:10 PM CDT Stenotrophomonas maltophilia Comment:Must have a follow up respiratory sample to remove isolation/infection flag. 10/20/2021 10/20/2021 COVID - 19 04/20/2022 04/20/2022 04/30/2022 12:1 8 AM RETAIL SALES ASSOCIATE BILINGUAL COVID - 07/18/2022 07/18/2022 07/28/2022 12:1 6 AM RETAIL SALES ASSOCIATE BILINGUAL COVID - 19 08/21/2022 08/21/2022 08/22/2022 8:31 AM CDT Respiratory Rule Out - RPA 08/21/2022 08/21/2022 0 08/22/2022 3:21 PM CDT COVID - 19 04/18/2023 04/18/2023 04/28/2023 12:1 6 AM RETAIL SALES ASSOCIATE BILINGUAL COVID - 19 07/13/2023 07/13/2023 07/23/2023 12:1 6 AM RETAIL SALES ASSOCIATE BILINGUAL Respiratory Rule Out - RPA 03/17/2024 03/17/2024 1 3:36 PM CDT COVID - 19 04/27/2024 04/27/2024 04/27/2024 2:19 PM RETAIL SALES ASSOCIATE BILINGUAL Respiratory Rule-Out 07/24/2024 07/24/2024 025 2:29 PM RETAIL SALES ASSOCIATE BILINGUAL COVID - 19 07/24/2024 07/24/2024 07/24/2024 2:29 PM RETAIL SALES ASSOCIATE BILINGUAL COVID - 19 08/22/2024 08/22/2024 08/22/2024 11:4 6 PM CDT COVID - 19 09/03/2024 09/03/2024 09/03/2024 12:4 7 PM CDT Assessment Noted Time PHQ-9 Depression Total Score: 2 06/07/19 21 2:34 PM RETAIL SALES ASSOCIATE BILINGUAL documented as of this encounter Care Teams Printing Plate Clerk Relationship Specialty Start Date End Date Keith Craft MD PCP - General Family Medicine 01/14/19 12/26/23 Liz Capellan DO 2 [facility] [address] [address] PCP - General Family Medicine 12/27/23 Quang Locke DO Gastroenterology 01/18/16 Bri Rollins, RN [place] Bearing Maker 03/07/21 05/22/23 [place] [address] [address] 05/25/21 Bri Rollins RN [place] Nurse Bearing Maker 03/07/21 05/23/23 Werner Swift MD #2 [place] [address] Consulting Physician Pulmonary Disease 01/30/22 Yasmin Restrepo MD #[address] [address] Consulting Physician Endocrinology 07/20/24 Jose Do MD #[address] [address] Consulting Physician Colon and Rectal Surgery 10/12/24 documented as of this encounter
--- OUTSIDE RECORDS SUMMARY | 2024-12-02 13:27 | XMS_ITS | Encounter Summary ---
Author Organization [facility] Address [address] [place] [address] Phone Care Team Providers Care Track Laying Equipment Operator Name Role Phone Quang Locke Unavailable [phone] Keith Craft MD Primary Care Provider [phone] Bri Rollins RN Unavailable Unavailable Silvio Schulte MD Unavailable [phone] Bri Rollins RN Unavailable Unavailable Werner Swift MD Unavailable Liz Capellan DO Primary Care Provider [phone] Yasmin Restrepo MD Unavailable Jose Do MD Unavailable Reason for Visit * Reason Comments Medication Refill Encounter Details Date Type Department Care Team (Late st Contact Info) Description 04/17/2020 Refill [facility] - Family [facility] #2 [place] [address] Keith Craft MD #1 [place] [address] Medication Refill Social History Tobacco Use Types [...] 2 months ago Acute non-recurrent maxillary sinusitis [facility] Keith Lemus MD 5 months ago Chronic prescription opiate use [facility] Keith Lemus MD 8 months ago Coronary artery disease involving [place] coronary artery of [place] heart without angina pectoris [facility] Keith Lemus MD 10 months ago COPD exacerbation (HCC) [facility] Brie Vieira PAC 12 months ago Type 2 diabetes mellitus with diabetic neuropathy, with long-term current use of insulin (HCC) [facility] Keith Lemus MD Upcoming Appointments Future Appointments In 1 month Keith Craft MD [facility] TALENT DEVELOPMENT CONSULTANT - Recent and Past Visits Recent Visits Date Type Provider Dept 02/02/20 Office Visit [facility] 11/02/19 Office Visit Keith Craft MD [facility] 07/27/19 Office Visit Keith Craft MD [facility] 06/10/19 Office Visit Brie Denis PAC [facility] 04/20/19 Office Visit Keith Craft MD [facility] 01/14/19 Office Visit Keith Craft, [facility] Showing recent [...] 2 months ago Acute non-recurrent maxillary sinusitis [facility] Keith Lemus MD 5 months ago Chronic prescription opiate use [facility] Keith Lemus MD 8 months ago Coronary artery disease involving [place] coronary artery of [place] heart without angina pectoris [facility] Keith Lemus MD 10 months ago COPD exacerbation (HCC) [facility] Brie Castano PAC 12 months ago Type 2 diabetes mellitus with diabetic neuropathy, with long-term current use of insulin (HCC) [facility] Keith Lemus MD Upcoming Appointments Future Appointments In 1 month Keith Craft MD [facility] Maximiliano Tesfaye [facility] TALENT DEVELOPMENT CONSULTANT - Recent and Past Visits Recent Visits [...] 2 months ago Acute non-recurrent maxillary sinusitis [facility] Keith Lemus MD 5 months ago Chronic prescription opiate use [facility] Keith Lemus MD 8 months ago Coronary artery disease involving [place] coronary artery of [place] heart without angina pectoris [facility] Keith Lemus MD 10 months ago COPD exacerbation (HCC) [facility] Brie Vieira PAC 12 months ago Type 2 diabetes mellitus with diabetic neuropathy, with long-term current use of insulin (HCC) [facility] Keith Lemus MD Upcoming Appointments Future Appointments In 1 month Keith Craft MD [facility] Maximiliano Tesfaye [facility] TALENT DEVELOPMENT CONSULTANT - Recent and Past Visits Recent Visits Date Type Provider Dept 02/02/20 Office Visit Keith Craft MD [facility] 11/02/19 Office Visit [facility] [place] 07/27/19 Office Visit Keith Craft MD [facility] 06/10/19 [facility] 04/20[facility]19 Office Visit Keith Craft MD [facility] 01/14/19 Office Visit Keith [facility] MD [facility] Showing recent [...] 12/04/2024 12:45 PM CDT Office Visit [facility] - Family Medicine - [place] #2 [place] [address] Ana Vivar, NON PROFIT FINANCIAL CONTROLLER, VENEER GRADER 2 [facility] [address] [place] [address] 12/09/2024 11:15 AM CDT Office Visit [facility] - General Surgery - [place] #[address] [place] [address] Jose Do MD #[address] [place] [address] 01/04/2025 1:30 PM CDT Office Visit [facility] - Pulmonology & Sleep Medicine - [place] #2 [facility] [place] [address] Werner Swift MD #2 [place] [address] 03/01/2025 1:30 PM CDT Office Visit [facility] - Endocrinology - [place] #2 [place] [address] Yasmin Restrepo MD #2 [facility] [address] [place] [address] 05/13/2025 1:20 PM LINTING MACHINE OPERATOR Office Visit [facility] - Family Medicine - [place] #2 [place] [address] Liz Capellan, DO 2 [facility]. [address] [place] [address] documented as of this encounter [...] - 19 07/23/2021 07/23/2021 07/24/2021 6:31 AM LINTING MACHINE OPERATOR COVID - 19 10/19/2021 10/19/2021 10/20/2021 7:45 AM CDT Respiratory Rule Out - RPA 10/19/2021 10/19/2021 0 10/20/2021 2:10 PM CDT Stenotrophomonas maltophilia Comment:Must have a follow up respiratory sample to remove isolation/infection flag. 10/20/2021 10/20/2021 COVID - 19 04/20/2022 04/20/2022 04/30/2022 12:1 8 AM LINTING MACHINE OPERATOR COVID - 19 07/18/2022 07/18/2022 07/28/2022 12:1 6 AM LINTING MACHINE OPERATOR COVID - 19 08/21/2022 08/21/2022 08/22/2022 8:31 AM CDT Respiratory Rule Out - RPA 08/21/2022 08/21/2022 0 08/22/2022 3:21 PM CDT COVID - 19 04/18/2023 04/18/2023 04/28/2023 12:1 6 AM LINTING MACHINE OPERATOR COVID - 19 07/13/2023 07/13/2023 07/23/2023 12:1 6 AM LINTING MACHINE OPERATOR Respiratory Rule Out - RPA 03/17/2024 03/17/2024 1 3:36 PM CDT COVID - 19 04/27/2024 04/27/2024 04/27/2024 2:19 PM LINTING MACHINE OPERATOR Respiratory Rule-Out 07/24/2024 07/24/2024 025 2:29 PM LINTING MACHINE OPERATOR COVID - 19 07/24/2024 07/24/2024 07/24/2024 2:29 PM LINTING MACHINE OPERATOR COVID - 19 08/22/2024 08/22/2024 08/22/2024 11:4 6 PM CDT COVID - 19 09/03/2024 09/03/2024 09/03/2024 12:4 7 PM CDT Assessment Noted Time PHQ-9 Depression Total Score: 1 06/10/19 20 1:03 PM LINTING MACHINE OPERATOR documented as of this encounter Care Teams Track Laying Equipment Operator Relationship Specialty Start Date End Date Keith Craft MD PCP - General Family Medicine 01/14/19 12/26/23 Liz Capellan DO [address] [address] PCP - General Family Medicine 12/27/23 Quang Locke DO Gastroenterology 01/18/16 Bri Rollins RN [place] Commissary Steward 03/07/21 05/22/23 [place] [address] [address] 05/25/21 Bri Rollins, KATEY [place] Nurse Commissary Steward 03/07/21 05/23/23 Werner Swift MD #2 [place] [address] Consulting Physician Pulmonary Disease 01/30/22 Yasmin Restrepo MD #[address] [address] Consulting Physician Endocrinology 07/20/24 Jose Do MD #[address] [id number] Consulting Physician Colon and Rectal Surgery 10/12/24 documented as of this encounter
--- OUTSIDE RECORDS SUMMARY | 2024-12-02 13:27 | XMS_ITS | Encounter Summary ---
Author Organization [facility] Address [address] [place] [address] Phone Care Team Providers Care Music Composition Teacher Name Role Phone Quang Locke Unavailable [phone] Keith Craft MD Primary Care Provider [phone] Bri Rollins RN Unavailable Unavailable Silvio Schulte MD Unavailable [phone] Bri Rollins RN Unavailable Unavailable Werner Swift MD Unavailable Liz Capellan DO Primary Care Provider [phone] Yasmin Restrepo MD Unavailable Jose Do MD Unavailable Reason for Visit * Reason Comments Medication Refill Encounter Details Date Type Department Care Team (Late st Contact Info) Description 03/27/2020 Refill [facility] #2 [place] [address] Keith Craft MD #1 [place] [address] Medication Refill Social History Tobacco Use Types [...] Last A1C 11/02/19 5.8 Follow up 06/16/20 H MACHINE HAND documented in this encounter Plan of Treatment Upcoming Encounters Date Type Department Care Team (Late st Contact Info) Description 12/04/2024 12:45 PM CDT Office Visit [facility] - Family Medicine - [place] #2 [place] [address] Ana Vivar APRN, ACUTE DIALYSIS REGISTERED NURSE [address] [address] 12/09/2024 11:15 AM CDT [facility] Visit [facility] - General Surgery - [place] #[address] [address] Jose Do MD #[address] [address] 01/04/2025 1:30 PM CDT [facility] - Pulmonology & Sleep Medicine - [place] #2 [place] [address] Werner Swift MD #2 [place] [address] 03/01/2025 1:30 PM CDT Office Visit [facility] - Endocrinology - [place] #2 [place] [address] Yasmin Restrepo MD #[address] [address] 05/13/2025 1:20 PM PUNCH MACHINE HAND Office Visit [facility] - Family Medicine - [place] #2 [place] [address] Liz Capellan, DO [address] [address] documented as of this encounter Visit Diagnoses [...] - 19 07/23/2021 07/23/2021 07/24/2021 6:31 AM PUNCH MACHINE HAND COVID - 19 10/19/2021 10/19/2021 10/20/2021 7:45 AM CDT Respiratory Rule Out - RPA 10/19/2021 10/19/2021 0 10/20/2021 2:10 PM CDT Stenotrophomonas maltophilia Comment:Must have a follow up respiratory sample to remove isolation/infection flag. 10/20/2021 10/20/2021 COVID - 19 04/20/2022 04/20/2022 04/30/2022 12:1 8 AM PUNCH MACHINE HAND COVID - 19 07/18/2022 07/18/2022 07/28/2022 12:1 6 AM PUNCH MACHINE HAND COVID - 19 08/21/2022 08/21/2022 08/22/2022 8:31 AM CDT Respiratory Rule Out - RPA 08/21/2022 08/21/2022 0 08/22/2022 3:21 PM CDT COVID - 19 04/18/2023 04/18/2023 04/28/2023 12:1 6 AM PUNCH MACHINE HAND COVID - 19 07/13/2023 07/13/2023 07/23/2023 12:1 6 AM PUNCH MACHINE HAND Respiratory Rule Out - RPA 03/17/2024 03/17/2024 1 3:36 PM CDT COVID - 19 04/27/2024 04/27/2024 04/27/2024 2:19 PM PUNCH MACHINE HAND Respiratory Rule-Out 07/24/2024 07/24/2024 025 2:29 PM PUNCH MACHINE HAND COVID - 19 07/24/2024 07/24/2024 07/24/2024 2:29 PM PUNCH MACHINE HAND COVID - 19 08/22/2024 08/22/2024 08/22/2024 11:4 6 PM CDT COVID - 19 09/03/2024 09/03/2024 09/03/2024 12:4 7 PM CDT Assessment Noted Time PHQ-9 Depression Total Score: 1 06/10/19 20 1:03 PM PUNCH MACHINE HAND documented as of this encounter Care Teams Music Composition Teacher Relationship Specialty Start Date End Date Keith Craft MD PCP - General Family Medicine 01/14/19 12/26/23 Liz Capellan DO [address] [address] PCP - General Family Medicine 12/27/23 Quang Locke DO Gastroenterology 01/18/16 Bri Rollins RN [place] Mosaic Tile Maker 10/12/21 12/27/23 [place] [address] [address] 05/25/21 Bri Rollins RN [place] Nurse Mosaic Tile Maker 03/07/21 05/23/23 Werner Swift MD #2 [place] [address] Consulting Physician Pulmonary Disease 01/30/22 Yasmin Restrepo MD #[address] [phone] Consulting Physician Endocrinology 07/20/24 Jose Do MD #[address] [address] Consulting Physician Colon and Rectal Surgery 10/12/24 documented as of this encounter
--- OUTSIDE RECORDS SUMMARY | 2024-12-02 13:27 | XMS_ITS | Encounter Summary ---
Author Organization [facility] Address [address] [place] [address] Phone Care Team Providers Care Money Room Teller Name Role Phone Quang Locke Unavailable [phone] Keith Craft MD Primary Care Provider [phone] Bri Rollins RN Unavailable Unavailable Silvio Schulte MD Unavailable [phone] Bri Rollins RN Unavailable Unavailable Werner Swift MD Unavailable Liz Capellan DO Primary Care Provider [phone] Yasmin Restrepo MD Unavailable Jose Do MD Unavailable Reason for Visit * Reason Comments Medication Refill Encounter Details Date Type Department Care Team (Late st Contact Info) Description 04/29/2020 Refill [facility] - [facility] #2 [place] [address] Keith Craft MD #1 [place] [address] Medication Refill Social History Tobacco Use Types [...] COVID-19? No / Unsure 04/25/2020 1:42 PM ELECTRONEURODIAGNOSTIC TECHNOLOGIST documented as of this encounter Miscellaneous Notes [...] right upper lobe due to infectious organism [facility] - Keith Jenkins MD 2 months ago Acute non-recurrent maxillary sinusitis [facility] - Keith Jenkins MD 5 months ago Chronic prescription opiate use [facility] - Keith Jenkins MD 9 months ago Coronary artery disease involving [place] coronary artery of [place] heart without angina pectoris [facility] Keith Lemus MD 10 months ago COPD exacerbation (HCC) [facility] - Brie Castano, NICOLE Upcoming Appointments Future Appointments In 1 month Keith Craft MD [facility] Medical [facility] Family Medicine - [place], [facility] DIRECT[facility] SYSTEMS - Recent and Past Visits Recent Visits Date Type Provider Dept 04/25/20 Office Visit Keith Craft MD [facility] 02/02/20 Office Visit Keith Craft MD [facility] 11/02/19 Office Visit Keith Craft MD [facility] 07/27/19 Office Visit Keith Craft MD [facility] 06/10/19 Office Visit Brie Denis, NICOLE [facility] [place] 04/20/19 Office Visit Keith Craft MD [facility] [place] Showing recent visits within past 460 days with a meds authorizing provider and meeting all other requirements Future Appointments Date Type Provider Dept 06/07/20 Appointment Keith Craft MD [facility] Showing future appointments within next 90 days with a meds authorizing provider and meeting all other requirements TRONEURODIAGNOSTIC TECHNOLOGIST documented in this encounter Plan of Treatment Upcoming Encounters Date Type Department Care Team (Late st Contact Info) Description 12/04/2024 12:45 PM CDT Office Visit [facility] Family Medicine - [place] [address]2 [place] [address] Ana Vivar, FLIGHT SIMULATOR TEACHER, OYSTER FLOATER 2 [facility] [address] [place] [address] 12/09/2024 11:15 AM CDT Office Visit [facility] Medical [facility] - General Surgery - [place] #2 [facility] [address] [place] [address] Jose Do MD #2 [facility] [address] [place] [address] 01/04/2025 1:30 PM CDT Office Visit [facility] - Pulmonology & Sleep Medicine - [place] #2 [place] [address] Werner Swift MD #2 [place] [address] 03/01/2025 1:30 PM CDT Office Visit [facility] - Endocrinology - [place] #2 [place] [address] Yasmin Restrepo MD #[address] [address] 05/13/2025 1:20 PM ELECTRONEURODIAGNOSTIC TECHNOLOGIST Office Visit [facility] Family Medicine - [place] #2 [place] [address] Liz Capellan, DO [address] [address] documented as of this encounter Visit Diagnoses Diagnosis Anxiety and depression Dysthymic disorder documented in this encounter Additional Health Concerns Infection Onset Date Last Indicated Resolved Time COVID - 19 01/25/2021 01/25/2021 01/31/2021 8:10 AM CDT Respiratory Rule Out - RPA 01/30/2021 01/30/2021 0 02/01/2021 12:45 AM CDT COVID - 19 07/23/2021 07/23/2021 07/24/2021 6:31 AM ELECTRONEURODIAGNOSTIC TECHNOLOGIST COVID - 19 10/19/2021 10/19/2021 10/20/2021 7:45 AM CDT Respiratory Rule Out - RPA 10/19/2021 10/19/2021 0 10/20/2021 2:10 PM CDT Stenotrophomonas maltophilia Comment:Must have a follow up respiratory sample to remove isolation/infection flag. 10/20/2021 10/20/2021 COVID - 19 04/20/2022 04/20/2022 04/30/2022 12:1 8 AM ELECTRONEURODIAGNOSTIC TECHNOLOGIST COVID - 19 07/18/2022 07/18/2022 07/28/2022 12:1 6 AM ELECTRONEURODIAGNOSTIC TECHNOLOGIST COVID - 19 08/21/2022 08/21/2022 08/22/2022 8:31 AM CDT Respiratory Rule Out - RPA 08/21/2022 08/21/2022 0 08/22/2022 3:21 PM CDT COVID - 19 04/18/2023 04/18/2023 04/28/2023 12:1 6 AM ELECTRONEURODIAGNOSTIC TECHNOLOGIST COVID - 19 07/13/2023 07/13/2023 07/23/2023 12:1 6 AM ELECTRONEURODIAGNOSTIC TECHNOLOGIST Respiratory Rule Out - RPA 03/17/2024 03/17/2024 1 3:36 PM CDT COVID - 19 04/27/2024 04/27/2024 04/27/2024 2:19 PM ELECTRONEURODIAGNOSTIC TECHNOLOGIST Respiratory Rule-Out 07/24/2024 07/24/2024 025 2:29 PM ELECTRONEURODIAGNOSTIC TECHNOLOGIST COVID - 19 07/24/2024 07/24/2024 07/24/2024 2:29 PM ELECTRONEURODIAGNOSTIC TECHNOLOGIST COVID - 19 08/22/2024 08/22/2024 08/22/2024 11:4 6 PM CDT COVID - 19 09/03/2024 09/03/2024 09/03/2024 12:4 7 PM CDT Assessment Noted Time PHQ-9 Depression Total Score: 1 06/10/19 20 1:03 PM ELECTRONEURODIAGNOSTIC TECHNOLOGIST documented as of this encounter Care Teams Money Room Teller Relationship Specialty Start Date End Date Keith Craft MD PCP - General Family Medicine 01/14/19 12/26/23 Liz Capellan DO 2 [facility] [address] [address] PCP - General Family Medicine 12/27/23 Quang Locke DO Gastroenterology 01/18/16 Bri Rollins, RN [place] Carpet Winder 03/07/21 05/22/23 [place] [id number] [address] 05/25/21 Bri Rollins RN [place] Nurse Carpet Winder 03/07/21 05/23/23 Werner Swift MD #2 [place] [address] Consulting Physician Pulmonary Disease 01/30/22 Yasmin Restrepo MD #[address] [phone] Consulting Physician Endocrinology 07/20/24 Jose Do MD #[address] [address] Consulting Physician Colon and Rectal Surgery 10/12/24 documented as of this encounter
--- OUTSIDE RECORDS SUMMARY | 2024-12-02 13:27 | XMS_ITS | Encounter Summary ---
Author Organization [facility] Address [address] [place] [address] Phone Care Team Providers Care Loading Machine Operator Helper Name Role Phone Quang Locke Unavailable Keith Craft MD Primary Care Provider [phone] Bri Rollins RN Unavailable Unavailable Silvio Schulte MD Unavailable [phone] Bri Rollins RN Unavailable Unavailable Werner Swift MD Unavailable Liz Capellan DO Primary Care Provider [phone] Yasmin Restrepo MD Unavailable Jose Do MD Unavailable Reason for Visit * Reason Comments Medication Refill Encounter Details Date Type Department Care Team (Late st Contact Info) Description 08/07/2021 Refill [facility] Medical Group - Family Medicine [facility] #2 [place] [address] Keith Craft MD #1 [place] [address] Medication Refill Social History Tobacco Use Types [...] COVID-19? No / Unsure 07/31/2021 3:[address]ISSIONER documented as of this encounter Miscellaneous Notes [...] [facility] 05/25/21 Office Visit Marcin Anderson, FINISH PAINTER, PAPERHANGER SUPERVISOR [facility] [place] 05/05/21 Office Visit Brie Denis, NICOLE [facility] 04/14/21 Office Visit Keith Craft MD [facility] 03/23/21 Office Visit Keith Craft MD [facility] 02/07/21 Office Visit Keith Craft MD [facility] 02/03/21 Office Visit Brie Denis PAC [facility] 01/12/21 Office Visit [facility] 10/12/20 [facility] 10/04/20 Office Visit Keith Craft MD [facility] Showing recent visits within past 365 days and meeting all other requirements Future Appointments Date Type Provider Dept 08/14/21 Appointment Keith Craft MD [facility] [place] Showing future appointments within next 90 days and meeting all other requirements documented in this encounter Plan of Treatment Upcoming Encounters Date Type Department Care Team (Late st Contact Info) Description 12/04/2024 12:45 PM CDT Office Visit [facility] Medical [facility] - Family Medicine - [place] #2 [place] [address] Ana Vivar, FINISH PAINTER, PAPERHANGER SUPERVISOR 2 [facility] [address] [place] [address] 12/09/2024 11:15 AM CDT Office Visit [facility] Medical [facility] - General Surgery - [place] #2 [facility] [address] [place] [address] Jose Do MD #[address] [place] [address] 01/04/2025 1:30 PM CDT Office Visit [facility] Medical [facility] - Pulmonology & Sleep Medicine - [place] #2 [place] [address] Werner Swift MD #2 [place] [address] 03/01/2025 1:30 PM CDT Office Visit [facility] Medical [facility] - Endocrinology - [place] #[address] [facility] [place] [address] Yasmin Restrepo MD #2 [facility] [address] [place] [address] 05/13/2025 1:[address] COMMISSIONER Office Visit [facility] - Family Medicine - [place] #2 [facility] [place] [address] Liz Capellan, DO 2 [address] [place] [address] documented as of this encounter Goals Goal [...] Zones/Action plan education. I will notify my Gold Leaf Gilder if my symptoms fall in the y [...] 19 04/20/2022 04/20/2022 04/30/2022 12:[address] COMMISSIONER COVID - 19 07/18/2022 07/18/2022 07/28/2022 12:[address] COMMISSIONER COVID - 19 08/21/2022 08/21/2022 08/22/2022 8:31 AM CDT Respiratory Rule Out - RPA 08/21/2022 08/21/2022 0 08/22/2022 3:21 PM CDT COVID - 19 04/18/2023 04/18/2023 04/28/2023 12:[address] COMMISSIONER COVID - 19 07/13/2023 07/13/2023 07/23/2023 12:[address] COMMISSIONER Respiratory Rule Out - RPA 03/17/2024 03/17/2024 1 3:36 PM CDT COVID - 19 04/27/2024 04/27/2024 04/27/2024 2:[address] COMMISSIONER Respiratory Rule-Out 07/24/2024 07/24/2024 025 2:[address] COMMISSIONER COVID - 19 07/24/2024 07/24/2024 07/24/2024 2:[address] COMMISSIONER COVID - 19 08/22/2024 08/22/2024 08/22/2024 11:4 6 PM CDT COVID - 19 09/03/2024 09/03/2024 09/03/2024 12:4 7 PM CDT Assessment Noted Time PHQ-9 Depression Total Score: 1 03/07/20 21 10:29 AM CDT documented as of this encounter Care Teams Loading Machine Operator Helper Relationship Specialty Start Date End Date Keith Craft MD PCP - General Family Medicine 01/14/19 12/26/23 Liz Capellan DO 2 [facility] [address] [place] [address] PCP - General Family Medicine 12/27/23 Quang Locke DO Gastroenterology 01/18/16 Bri Rollins, RN [place] [employer] Gilder 03/07/21 05/22/23 [place] [id number] [address] 05/25/21 Bri Rollins, RN [place] Nurse [employer] 03/07/21 05/23/23 Werner Swift MD #2 [place] [address] Consulting Physician Pulmonary Disease 01/30/22 Yasmin Restrepo MD #2 [facility] [address] [place] [address] Consulting Physician Endocrinology 07/20/24 Jose Do MD #2 [facility] [address] [place] [address] Consulting Physician Colon and Rectal Surgery 10/12/24 documented as of this encounter
--- OUTSIDE RECORDS SUMMARY | 2024-12-02 13:27 | XMS_ITS | Encounter Summary ---
Author Organization [facility] Address [address] [place] [address] Phone Care Team Providers Care Sheet Metal Worker Maintenance Name Role Phone Quang Locke Unavailable [phone] Keith Craft MD Primary Care Provider [phone] Bri Rollins RN Unavailable Unavailable Silvio Schulte MD Unavailable [phone] Bri Rollins RN Unavailable Unavailable Werner Swift MD Unavailable Liz Capellan DO Primary Care Provider [phone] Yasmin Restrepo MD Unavailable Jose Do MD Unavailable Reason for Visit * Reason Comments Medication Refill Encounter Details Date Type Department Care Team (Late st Contact Info) Description 05/01/2023 Refill [facility] - [facility] #2 [place] [address] Keith Craft MD #1 [place] [address] Medication Refill Social History Tobacco Use Types [...] Kelin Nance RN - 05/01/2023 12:38 PM SALES REPRESENTATIVE SUPERVISOR PDMP 04-04-23 as 30-day supply. Fill date [...] Dept 04/12/23 [facility] 12/10/22 Office Visit Keith Craft MD [facility] 09/10/22 Office Visit Keith Craft MD [facility] 07/18/22 Office Visit Kerri Kauffman, MACHINE HEDDLE CLEANER, COUNTY HOME DEMONSTRATOR [facility] 06/07/22 Office Visit Keith Craft MD [facility] [place] Showing recent visits within past 365 days and meeting all other requirements Future Appointments Date Type Provider Dept 05/02/23 Appointment Keith Craft MD [facility] [place] Showing future appointments within next 90 days and meeting all other requirements S REPRESENTATIVE SUPERVISOR documented in this encounter Plan of Treatment Upcoming Encounters Date Type Department Care Team (Late st Contact Info) Description 12/04/2024 12:45 PM CDT Office Visit [facility] Medical [facility] - Family Medicine - [place] #2 [place] [address] Ana Vivar, MACHINE HEDDLE CLEANER, COUNTY HOME DEMONSTRATOR 2 [facility] [address] [place] [address] 12/09/2024 11:15 AM CDT Office Visit [facility] Medical [facility] - General Surgery - [place] #[address] [facility] [address] [place] [address] Jose Do MD #[address] [place] [address] 01/04/2025 1:30 PM CDT Office Visit [facility] Medical [facility] - Pulmonology & Sleep Medicine - [place] #2 [place] [address] Werner Swift MD #2 [facility] [place] [address] 03/01/2025 1:30 PM CDT Office Visit [facility] Medical [facility] - Endocrinology - [place] #[address] [place] [place] [address] Yasmin Restrepo MD #2 [facility] [address] [place] [address] 05/13/2025 1:20 PM SALES REPRESENTATIVE SUPERVISOR Office Visit [facility] - Family Medicine - [place] #2 [place] [address] Liz Capellan, DO 2 [address] [place] [address] documented as of this encounter Goals Goal [...] Zones/Action plan education. I will notify my Physical Therapy Assistant Instructor if my symptoms fall in the [...] 07/13/2023 07/13/2023 07/23/2023 12:1 6 AM SALES REPRESENTATIVE SUPERVISOR Respiratory Rule Out - RPA 03/17/2024 03/17/2024 1 3:36 PM CDT COVID - 19 04/27/2024 04/27/2024 04/27/2024 2:19 PM SALES REPRESENTATIVE SUPERVISOR Respiratory Rule-Out 07/24/2024 07/24/2024 025 2:29 PM SALES REPRESENTATIVE SUPERVISOR COVID - 19 07/24/2024 07/24/2024 07/24/2024 2:29 PM SALES REPRESENTATIVE SUPERVISOR COVID - 19 08/22/2024 08/22/2024 08/22/2024 11:4 6 PM CDT COVID - 19 09/03/2024 09/03/2024 09/03/2024 12:4 7 PM CDT Assessment Noted Time PHQ-9 Depression Total Score: 1 03/07/20 21 10:29 AM CDT documented as of this encounter Care Teams Sheet Metal Worker Maintenance Relationship Specialty Start Date End Date Keith Craft MD PCP - General Family Medicine 01/14/19 12/26/23 Liz Capellan DO [address] [address] PCP - General Family Medicine 12/27/23 Quang Locke DO Gastroenterology 01/18/16 Bri Rollins RN [place] Physical Therapy Assistant Instructor 03/07/21 05/22/23 [place] [address] [address] 05/25/21 Bri Rollins, RN [place] Nurse Physical Therapy Assistant Instructor 03/07/21 05/23/23 Werner Swift MD #2 [place] [address] Consulting Physician Pulmonary Disease 01/30/22 Yasmin Restrepo MD #[address] [address] Consulting Physician Endocrinology 07/20/24 Joes Do MD #[address] [address] Consulting Physician Colon and Rectal Surgery 10/12/24 documented as of this encounter
--- OUTSIDE RECORDS SUMMARY | 2024-12-02 13:27 | XMS_ITS ---
Author Organization [facility] Address #1 [place] [address] Phone Care Team Providers Care Aviation Manager Name Role Phone Quang Locke DO Unavailable [phone] Silvio Schulte MD Unavailable [phone] Werner Swift MD Unavailable Liz Capellan DO Primary Care Provider [phone] Yasmin Restrepo MD Unavailable Jose Do MD Unavailable OnCall Chronic Condition Monitoring Status:Enrolled (Active) Start date:08/06/2024 Enrollment date:08/06/2024 Related social drivers of health:Social Connections, Alcohol Use, Tobacco Use, Physical Activity, Food Insecurity Continued Care and Services Coordination
--- OUTSIDE RECORDS SUMMARY | 2024-12-02 13:27 | XMS_ITS | Clinical Summary ---
Author Organization [facility] Address [address] [place] [address] Care Team Providers Care Rock Picker Name Role Phone Unavailable Primary Care Provider Unavailabl e Source Comments [facility],non-owned Affiliates and Associated Physician Practices is amultiple site organization consisting of ambulatory clinics and hospital sitesin [place], [place], [place] and [place]. This disclosure is being madepursuant to the Care Everywhere program and may not contain all information available regarding this patient. Last updated 18.[facility] Social History Tobacco Use Types Packs/Day Years Used Date Smoking Tobacco: Never Assessed Comments Unknown Sex and Gender Information Value Date Recorded Sex Assigned at Not on file Legal Sex Female 4:23 AM PRINT SHOP STENOGRAPHER Gender Identity Not on file Sexual Orientation [...] VACCINE (1 of 2) 09/19/1999 COVID-19 VACCINE (1 - 2023-2 5 season) 2024 DEPRESSION SCREENING 05/27/2024 Respiratory Syncytial Virus (RSV) Vaccine Pt: or over 60 yrs (1 - 1-dose 75+ series) 2024 INFLUENZA VACCINE (#1) 2025 HEPATITIS B VACCINE Aged Out No longe [...] patient's age to complete this topic Insurance MEDICARE [facility] Address: [address] [place] [address] MEDICAID - OUT OF STATE [facility] MEDICARE MANAGED CARE PLAN GENERIC MEDICARE ADV
--- OUTSIDE RECORDS SUMMARY | 2024-12-02 13:27 | XMS_ITS | Encounter Summary ---
Author Organization [facility] Address [address] [place] [address] Phone Care Team Providers Care Senior Mechanical Engineer Name Role Phone Quang Locke Oswaldo PRESLEY Unavailable [phone] Silvio Schulte MD Unavailable [phone] Werner Swift MD Unavailable Liz Capellan DO Primary Care Provider Yasmin Restrepo MD Unavailable Jose Do MD Unavailable Reason for Visit * Reason Comments Medication Refill Encounter Details Date Type Department Care Team (Late st Contact Info) Description 01/09/2024 Refill [facility] - [facility] Medicine [facility] #2 [place] [address] Keith Craft MD #1 [place] [address] Medication Refill Social History Tobacco [...] attend chur ch or yazidi services? Never 12/27/2023 Do you belong to [...] Total Score - Questions 1-9 4 10/25 [facility] [place] of Occupat ional Health - Occupational Stress [...] in the past 12 m [facility], were you homeless or living in a nursing home (including now)? No 12/27/2023 Education Answer [...] Description 12/04/2024 12:45 PM CDT Office Visit [facility] Medical [facility] - Family Medicine - [place] #2 [place] [address] Aan Vivar, YOLK SPRAY DRIER, PAPER TWISTER 2 [facility]. [address] [place] [address] 12/09/2024 11:15 AM CDT [facility] [place] #[address] [phone] Jose Do MD #[address] [address] 01/04/2025 1:30 PM CDT Office [facility] - Pulmonology & Sleep Medicine - [place] #[address] [facility] [address] Werner Swift MD #2 [facility] [place] [address] 03/01/2025 1:30 PM CDT Office Visit [facility] Medical [facility] - Endocrinology - [place] #[address] [facility] [place] [address] Yasmin Restrepo MD #2 [facility] [address] [place] [address] 05/13/2025 1:20 PM SOLID WASTE LANDFILL TECHNICIAN Office Visit [facility] Medical Group - Family Medicine - [place] #[address] [place] [address] Liz Capellan, DO [address] [address] [place] [address] documented as of this encounter Goals Goal [...] Zones/Action plan education. I will notify my Substation Wireman if my symptoms fall in the y [...] 19 04/27/2024 04/27/2024 04/27/2024 2:1 9 PM SOLID WASTE LANDFILL TECHNICIAN Respiratory Rule-Out 07/24/2024 07/24/2024 025 2:29 PM SOLID WASTE LANDFILL TECHNICIAN COVID - 19 07/24/2024 07/24/2024 07/24/2024 2:29 PM SOLID WASTE LANDFILL TECHNICIAN COVID - 19 08/22/2024 08/22/2024 08/22/2024 11:4 6 PM CDT COVID - 19 09/03/2024 09/03/2024 09/03/2024 12:4 7 PM CDT Assessment Noted Time PHQ-9 Depression Total Score: 4 11/08/19 24 9:33 AM CDT documented as of this encounter Care Teams Senior Mechanical Engineer Relationship Specialty Start Date End Date Liz Capellan DO 2 [facility] [address] [address] PCP - General Family Medicine 12/27/23 Quang Locke DO Gastroenterology 01/18/16 [place] [address] [address] 05/25/21 Werner Swift MD #2 [place] [address] Consulting Physician Pulmonary Disease 01/30/22 Yasmin Restrepo MD #[address] [address] Consulting Physician Endocrinology 07/20/24 Jose Do MD #[address] [address] Consulting Physician Colon and Rectal Surgery 10/12/24 documented as of this encounter
--- OUTSIDE RECORDS SUMMARY | 2024-12-02 13:27 | XMS_ITS | Encounter Summary ---
Author Organization [facility] Address [address] [place] [address] Phone Care Team Providers Care Teleprinter Name Role Phone Quang Locke Oswaldo PRESLEY Unavailable [phone] Silvio Schulte MD Unavailable [phone] eWrner Swift MD Unavailable Liz Capellan DO Primary Care Provider [phone] Yasmin Restrepo MD Unavailable Jose Do MD Unavailable Reason for Visit * Reason Comments Medication Refill Encounter Details Date Type Department Care Team (Late st Contact Info) Description 02/19/2024 Refill [facility] #2 [place] [address] Keith Craft MD #1 [place] [address] Medication Refill Social History Tobacco Use Types Packs/Day Years Used Date Smoking Tobacco: Former Cigarettes 2 50 1 - 03/16/2018 Smokeless Tobacco: Never Comments:Still uses nictoine patches and gum Alcohol Use Standard Drinks/Week Comments No 0 (1 standard drink = 0.6 oz pur e alcohol) [facility] Utilities Answer Date Recorded In the [...] often do you attend chur ch or caodaism services? Never 12/27/2023 Do you belong to any clubs o r organizations such as uatsdin groups, unions, fraternal or athletic groups, or [...] Total Score - Questions 1-9 4 10/25 [facility] [place] of Occupat ional Health - Occupational Stress [...] time in the past 12 m [facility], were you homeless or living in a custodial (including now)? No 12/27/2023 Education Answer Date [...] [facility] - Family Medicine - [place] #2 [place] [address] Ana Vivar, NATURAL DEVELOPER, HARDBOARD PRESS OPERATOR 2 [facility]. [address] [place] [address] 12/09/2024 11:15 AM CDT Office Visit [facility] - General Surgery - [place] #[address] [place] [phone] Jose Do MD #[address] [place] [address] 01/04/2025 1:30 PM CDT [facility] - [place] #2 [facility] [place] [address] Werner Swift MD #2 [place] [address] 03/01/2025 1:30 PM CDT Office Visit [facility] - Endocrinology - [place] #2 [facility] [place] [address] Yasmin Restrepo MD #[address] [place] [address] 05/13/2025 1:20 PM CPA TAX Office Visit [facility] - Family [facility] - [place] [address] [place] [address] Liz Capellan, DO 2 [address]. [address] [place] [address] documented as of this encounter Goals Goal [...] Zones/Action plan education. I will notify my Topology Professor if my symptoms fall in the [...] - 19 04/27/2024 04/27/2024 04/27/2024 2:19 PM CPA TAX Respiratory Rule-Out 07/24/2024 07/24/2024 025 2:29 PM CPA TAX COVID - 19 07/24/2024 07/24/2024 07/24/2024 2:29 PM CPA TAX COVID - 19 08/22/2024 08/22/2024 08/22/2024 11:4 6 PM CDT COVID - 19 09/03/2024 09/03/2024 09/03/2024 12:4 7 PM CDT Assessment Noted Time PHQ-9 Depression Total Score: 4 11/08/19 9:33 AM CDT documented as of this encounter Care Teams Teleprinter Relationship Specialty Start Date End Date Liz Capellan DO 2 [facility] [address] [address] PCP - General Family Medicine 12/27/23 Quang Locke DO Gastroenterology 01/18/16 [place] [address] [address] 05/25/21 Werner Swift MD #2 [place] [address] Consulting Physician Pulmonary Disease 01/30/22 Yasmin Restrepo MD #[address] [address] Consulting Physician Endocrinology 07/20/24 Jose Do MD #2 [place] [address] Consulting Physician Colon and Rectal Surgery 10/12/24 documented as of this encounter
--- OUTSIDE RECORDS SUMMARY | 2024-12-02 13:27 | XMS_ITS | Encounter Summary ---
Author Organization [facility] Address [address] [place] [address] Phone Care Team Providers Care Audio Video Repairer Name Role Phone Quang Locke Unavailable [phone] Keith Craft MD Primary Care Provider [phone] Bri Rollins RN Unavailable Unavailable Silvio Schulte MD Unavailable [phone] Bri Rollins RN Unavailable Unavailable Werner Swift MD Unavailable Liz Capellan DO Primary Care Provider [phone] Yasmin Restrepo MD Unavailable Jose Do MD Unavailable Encounter Details Date Type Department Care Team (Late st Contact Info) Description 04/24/2023 Telephone [facility] [address] [place] [address] Keith Craft MD #1 [place] [address] Social History Tobacco Use Types [...] CST This was sent in by pulmology. LLE TRANSLATOR * Telephone Encounter - Kunal Garcia, RN - 04/24/2023 8:49 AM CST Message received that pt should be taking atrovent by [facility], can you office send in a new script forthis. She does not have in home. Pt also complaining that she has still has harsh cough at night. She is requesting mucinex or something for cough be called in for as well. She reports mucinex is covered by her insurance. She uses [facility]. Thank you for your assistance with this. LLE TRANSLATOR documented in this encounter Plan of Treatment Upcoming Encounters Date Type Department Care Team (Late st Contact Info) Description 12/04/2024 12:45 PM CDT [facility] - [facility] Medicine - [place] #2 [place] [address] Oehl, Ana N, WORKPLACE REHABILITATION OFFICER, VANSTONE MACHINE OPERATOR 2 [facility], [place]. [address] [place] [address] 12/09/2024 11:15 AM CDT Office Visit [facility] - General Surgery - [place] #2 [facility] [address] [place] [address] Jose Do MD #2 [facility] [address] [place] [address] 01/04/2025 1:30 PM CDT Office Visit [facility] - Pulmonology & Sleep Medicine - [place] #2 [place] [address] Werner Swift MD #2 [place] [address] 03/01/2025 1:30 PM CDT Office Visit [facility] - Endocrinology - [place] #2 [place] [address] Yasmin Restrepo MD #[address] [phone] 05/13/2025 1:20 PM BRAILLE TRANSLATOR Office Visit [facility] Family Medicine - [place] #2 [place] [address] Lzi Capellan, DO [address] [address] documented as of this encounter Goals Goal [...] plan education. I will notify my Sales Person if my symptoms fall in the y [...] 19 04/18/2023 04/18/2023 04/28/2023 12:1 6 AM BRAILLE TRANSLATOR COVID - 19 07/13/2023 07/13/2023 07/23/2023 12:1 6 AM BRAILLE TRANSLATOR Respiratory Rule Out - RPA 03/17/2024 03/17/2024 1 3:36 PM CDT COVID - 19 04/27/2024 04/27/2024 04/27/2024 2:19 PM BRAILLE TRANSLATOR Respiratory Rule-Out 07/24/2024 07/24/2024 025 2:29 PM BRAILLE TRANSLATOR COVID - 19 07/24/2024 07/24/2024 07/24/2024 2:29 PM BRAILLE TRANSLATOR COVID - 19 08/22/2024 08/22/2024 08/22/2024 11:4 6 PM CDT COVID - 19 09/03/2024 09/03/2024 09/03/2024 12:4 7 PM CDT Assessment Noted Time PHQ-9 Depression Total Score: 1 03/07/20 21 10:29 AM CDT documented as of this encounter Care Teams Audio Video Repairer Relationship Specialty Start Date End Date Keith Craft MD PCP - General Family Medicine 01/14/19 12/26/23 Liz Capellan DO 2 [facility] [address] [place] [address] PCP - General Family Medicine 12/27/23 Quang Locke DO Gastroenterology 01/18/16 Bri Rollins, RN [place] Sales Person 03/07/21 05/22/23 [place] [address] [address] 05/25/21 Bri Rollins, RN [place] Nurse Sales Person 03/07/21 05/23/23 Werner Swift MD #2 [place] [address] Consulting Physician Pulmonary Disease 01/30/22 Yasmin Restrepo MD #[address] [address] Consulting Physician Endocrinology 07/20/24 Jose Do MD #[address] [address] Consulting Physician Colon and Rectal Surgery 10/12/24 documented as of this encounter
--- OUTSIDE RECORDS SUMMARY | 2024-12-02 13:27 | XMS_ITS | Encounter Summary ---
Author Organization [facility] Address [address] [place] [address] Phone Care Team Providers Care Red Lead Burner Name Role Phone Quang Locke Unavailable [phone] Keith Craft MD Primary Care Provider [phone] Bri Rollins RN Unavailable Unavailable Silvio Schulte MD Unavailable [phone] Bri Rollins RN Unavailable Unavailable Werner Swift MD Unavailable Liz Capellan DO Primary Care Provider [phone] Yasmin Restrepo MD Unavailable Jose Do MD Unavailable Reason for Visit * Reason Comments Medication Refill Encounter Details Date Type Department Care Team (Late st Contact Info) Description 08/17/2021 [facility]ill [facility] [address] [place] [address] Keith Craft MD #1 [place] [address] Medication Refill Social History Tobacco Use Types [...] [facility] - [facility] Medicine - [place] #2 [place] [address] Ana Vivar N, SPECIAL PROJECTS MANAGER, SEARCH DIRECTOR 2 [facility], [place]. [address] [place] [address] 12/09/2024 11:15 AM CDT Office Visit [facility] General Surgery - [place] #2 [facility] [address] [place] [address] Jose Do MD #2 [facility] [address] [place] [address] 01/04/2025 1:30 PM CDT Office Visit [facility] - Pulmonology & Sleep Medicine - [place] #2 [place] [address] Werner Swift MD #2 [facility] [place] [address] 03/01/2025 1:30 PM CDT Office Visit [facility] - Endocrinology - [place] #2 [place] [address] Yasmin Restrepo MD #[address] [place] [address] 05/13/2025 1:20 PM WEAPONS MECHANIC Office Visit [facility] Family Medicine - [place] #2 [facility] [place] [address] Liz Capellan, DO [address] [address] documented as of this encounter Goals Goal [...] plan education. I will notify my Sales Agent [employer] Insurance if my symptoms fall in the y [...] 19 04/20/2022 04/20/2022 04/30/2022 12:1 8 AM WEAPONS MECHANIC COVID - 19 07/18/2022 07/18/2022 07/28/2022 12:1 6 AM WEAPONS MECHANIC COVID - 19 08/21/2022 08/21/2022 08/22/2022 8:31 AM CDT Respiratory Rule Out - RPA 08/21/2022 08/21/2022 0 08/22/2022 3:21 PM CDT COVID - 19 04/18/2023 04/18/2023 04/28/2023 12:1 6 AM WEAPONS MECHANIC COVID - 19 07/13/2023 07/13/2023 07/23/2023 12:1 6 AM WEAPONS MECHANIC Respiratory Rule Out - RPA 03/17/2024 03/17/2024 1 3:36 PM CDT COVID - 19 04/27/2024 04/27/2024 04/27/2024 2:19 PM WEAPONS MECHANIC Respiratory Rule-Out 07/24/2024 07/24/2024 025 2:29 PM WEAPONS MECHANIC COVID - 19 07/24/2024 07/24/2024 07/24/2024 2:29 PM WEAPONS MECHANIC COVID - 19 08/22/2024 08/22/2024 08/22/2024 11:4 6 PM CDT COVID - 19 09/03/2024 09/03/2024 09/03/2024 12:4 7 PM CDT Assessment Noted Time PHQ-9 Depression Total Score: 1 03/07/20 21 10:29 AM CDT documented as of this encounter Care Teams Red Lead Burner Relationship Specialty Start Date End Date Keith Craft MD PCP - General Family Medicine 01/14/19 12/26/23 Liz Capellan DO [address] [address] PCP - General Family Medicine 12/27/23 Quang Locke DO Gastroenterology 01/18/16 Bri Rollins RN [place] Sales Agent [employer] Insurance 03/07/21 05/22/23 [place] [address] [address] 05/25/21 Bri Rollins RN [place] Nurse Sales Agent [employer] 03/07/21 05/23/23 Werner Swift MD #2 [place] [address] Consulting Physician Pulmonary Disease 01/30/22 Yasmin Restrepo MD #[address] [address] Consulting Physician Endocrinology 07/20/24 Jose Do MD #[address] [address] Consulting Physician Colon and Rectal Surgery 10/12/24 documented as of this encounter
--- OUTSIDE RECORDS SUMMARY | 2024-12-02 13:27 | XMS_ITS | Encounter Summary ---
Author Organization [facility] Address [address] [place] [address] Phone Care Team Providers Care Pediatric Occupational Therapist Name Role Phone Quang Locke Unavailable Keith Craft MD Primary Care Provider [phone] Bri Rollins RN Unavailable Unavailable Silvio Schulte MD Unavailable [phone] Bri Rollins RN Unavailable Unavailable Werner Swift MD Unavailable Liz Capellan DO Primary Care Provider [phone] Yasmin Restrepo MD Unavailable Jose Do MD Unavailable Reason for Visit * Reason Comments Medication Refill Encounter Details Date Type Department Care Team (Late st Contact Info) Description 07/26/2020 Refill [facility] #2 [place] [address] Keith Craft MD #1 [place] [address] Medication Refill Social History Tobacco Use Types [...] COVID-19? No / Unsure 07/02/2020 2:53 PM PURCHASING BUYER documented as of this encounter Miscellaneous Notes [...] Outpatient Visits 1 month ago Mixed hyperlipidemia [facility] Medical [facility] Keith Lemus MD 3 months ago Pneumonia of right upper lobe due to infectious organism [facility] Family [facility] Keith Lemus MD 5 months ago Acute non-recurrent maxillary sinusitis [facility] Keith Laughlin MD 8 months ago Chronic prescription opiate use [facility] Keith Lemus MD 1 year ago Coronary artery disease involving [place] coronary artery of [place] heart without angina pectoris [facility] Keith Lemus MD Upcoming Appointments Future Appointments In 4 days [facility] 2ND VACCINE CLINIC [facility] Family [facility] [address], [place] In 2 months Keith Craft MD [facility] FOOD SPECIALIST - Recent and Past Visits Recent Visits Date Type Provider Dept 06/07/20 Office Visit Keith Craft MD [facility] 04/25/20 Office Visit eKith Craft, MD [facility] 02/02/20 Office Visit Keith Craft MD [facility] 11/02/19 Office Visit Keith Craft, MD [facility] 07/27/19 Office Visit Keith Craft MD [facility] 06/10/19 Office Visit Brie Denis PAC [facility] Showing recent visits within past 460 days with a meds authorizing provider and meeting all other requirements Future Appointments Date Type Provider Dept 10/04/20 Appointment Keith Craft MD [facility] Showing future appointments within next 90 days with a meds authorizing provider and meeting all other requirements HASING BUYER documented in this encounter Plan of Treatment Upcoming Encounters Date Type Department Care Team (Late st Contact Info) Description 12/04/2024 12:45 PM CDT Office Visit [facility] - [place] #2 [place] [address] Ana Vivar, REBECCA, MECHANICAL RELIABILITY ENGINEER 2 [facility] [address] [place] [address] 12/09/2024 11:15 AM CDT Office Visit [facility] General Surgery - [place] #[address] [address] Jose Do MD #[address] [address] 01/04/2025 1:30 PM CDT Office Visit [facility] - Pulmonology & Sleep Medicine - [place] #2 [place] [address] Werner Swift MD #2 [place] [address] 03/01/2025 1:30 PM CDT Office Visit [facility] Medical [facility] - Endocrinology - [place] #2 [place] [address] Yasmin Restrepo MD #[address] [address] 05/13/2025 1:20 PM PURCHASING BUYER Office Visit [facility] - Family Medicine - [place] #2 [place] [address] Liz Capellan, DO [address] [address] documented as of this encounter Visit Diagnoses Diagnosis Chronic low back pain, unspecified back pain laterality, unspecified whether sciatica present documented in this encounter Additional Health Concerns Infection Onset Date Last Indicated Resolved Time COVID - 19 01/25/2021 01/25/2021 01/31/2021 8:10 AM CDT Respiratory Rule Out - RPA 01/30/2021 01/30/2021 0 02/01/2021 12:45 AM CDT COVID - 19 07/23/2021 07/23/2021 07/24/2021 6:31 AM PURCHASING BUYER COVID - 19 10/19/2021 10/19/2021 10/20/2021 7:45 AM CDT Respiratory Rule Out - RPA 10/19/2021 10/19/2021 0 10/20/2021 2:10 PM CDT Stenotrophomonas maltophilia Comment:Must have a follow up respiratory sample to remove isolation/infection flag. 10/20/2021 10/20/2021 COVID - 19 04/20/2022 04/20/2022 04/30/2022 12:1 8 AM PURCHASING BUYER COVID - 19 07/18/2022 07/18/2022 07/28/2022 12:1 6 AM PURCHASING BUYER COVID - 19 08/21/2022 08/21/2022 08/22/2022 8:31 AM CDT Respiratory Rule Out - RPA 08/21/2022 08/21/2022 0 08/22/2022 3:21 PM CDT COVID - 19 04/18/2023 04/18/2023 04/28/2023 12:1 6 AM PURCHASING BUYER COVID - 19 07/13/2023 07/13/2023 07/23/2023 12:1 6 AM PURCHASING BUYER Respiratory Rule Out - RPA 03/17/2024 03/17/2024 1 3:36 PM CDT COVID - 19 04/27/2024 04/27/2024 04/27/2024 2:19 PM PURCHASING BUYER Respiratory Rule-Out 07/24/2024 07/24/2024 025 2:29 PM PURCHASING BUYER COVID - 19 07/24/2024 07/24/2024 07/24/2024 2:29 PM PURCHASING BUYER COVID - 19 08/22/2024 08/22/2024 08/22/2024 11:4 6 PM CDT COVID - 19 09/03/2024 09/03/2024 09/03/2024 12:4 7 PM CDT Assessment Noted Time PHQ-9 Depression Total Score: 2 06/07/19 21 2:34 PM PURCHASING BUYER documented as of this encounter Care Teams Pediatric Occupational Therapist Relationship Specialty Start Date End Date Keith Craft MD PCP - General Family Medicine 01/14/19 12/26/23 Liz Caepllan DO [address] [address] PCP - General Family Medicine 12/27/23 Quang Locke DO Gastroenterology 01/18/16 Bri Rollins, KATEY [place] Inset Cutter 03/07/21 05/22/23 [place] [address] [address] 05/25/21 Bri Rollins RN [place] Nurse Inset Cutter 03/07/21 05/23/23 Werner Swift MD #2 [place] [address] Consulting Physician Pulmonary Disease 01/30/22 Yasmin Restrepo MD #[address] [address] Consulting Physician Endocrinology 07/20/24 Jose Do MD #[address] [address] Consulting Physician Colon and Rectal Surgery 10/12/24 documented as of this encounter
--- OUTSIDE RECORDS SUMMARY | 2024-12-02 13:27 | XMS_ITS | Encounter Summary ---
Author Organization [facility] Address [address] [place] [address] Phone Care Team Providers Care Hospice Team Lead Name Role Phone Quang Locke Unavailable [phone] Keith Craft MD Primary Care Provider [phone] Bri Rollins RN Unavailable Unavailable Silvio Schulte MD Unavailable [phone] Bri Rollins RN Unavailable Unavailable Werner Swift MD Unavailable Liz Capellan DO Primary Care Provider [phone] Yasmin Restrepo MD Unavailable Jose Do MD Unavailable Reason for Visit * Reason Comments Medication Refill Encounter Details Date Type Department Care Team (Late st Contact Info) Description 05/18/2021 Refill [facility] [place] #2 [place] [address] Keith Craft MD #1 [place] [address] Medication Refill Social History Tobacco Use Types [...] COVID-19? No / Unsure 05/05/2021 3:02 PM CLINICAL DOCUMENTATION CONSULTANT documented as of this encounter Miscellaneous [...] Ref Range Status 04/18/2021 >60 >=60 Final ICAL DOCUMENTATION CONSULTANT documented in this encounter Plan of Treatment Upcoming Encounters Date Type Department Care Team (Late st Contact Info) Description 12/04/2024 12:45 PM CDT Office Visit [facility] Medical [facility] - Family Medicine - [place] #2 [place] [address] Ana Vivar, POWER ELECTRONICS ENGINEER, JAVA APPLICATION DEVELOPER 2 [facility] [address] [place] [address] 12/09/2024 11:15 AM CDT Office Visit [facility] Medical [facility] - General Surgery - [place] #[address] [address] Jose Do MD #[address] [address] 01/04/2025 1:30 PM CDT Office Visit [facility] - Pulmonology & Sleep Medicine - [place] #2 [place] [address] Werner Swift MD #2 [facility] [place] [address] 03/01/2025 1:30 PM CDT Office Visit [facility] Medical [facility] - Endocrinology - [place] #2 [place] [address] Yasmin Restrepo MD #[address] [facility] [address] [place] [address] 05/13/2025 1:20 PM CLINICAL DOCUMENTATION CONSULTANT Office Visit [facility] Medical Group - Family Medicine - [place] #[address] [place] [address] Liz Capellan, DO [address] [place] [place] [address] documented as of this encounter Goals Goal [...] Zones/Action plan education. I will notify my Accounting Intern if my symptoms fall in the [...] - 19 07/23/2021 07/23/2021 07/24/2021 6:31 AM CLINICAL DOCUMENTATION CONSULTANT COVID - 19 10/19/2021 10/19/2021 10/20/2021 7:45 AM CDT Respiratory Rule Out - RPA 10/19/2021 10/19/2021 0 10/20/2021 2:10 PM CDT Stenotrophomonas maltophilia Comment:Must have a follow up respiratory sample to remove isolation/infection flag. 10/20/2021 10/20/2021 COVID - 19 04/20/2022 04/20/2022 04/30/2022 12:1 8 AM CLINICAL DOCUMENTATION CONSULTANT COVID - 19 07/18/2022 07/18/2022 07/28/2022 12:1 6 AM CLINICAL DOCUMENTATION CONSULTANT COVID - 19 08/21/2022 08/21/2022 08/22/2022 8:31 AM CDT Respiratory Rule Out - RPA 08/21/2022 08/21/2022 0 08/22/2022 3:21 PM CDT COVID - 19 04/18/2023 04/18/2023 04/28/2023 12:1 6 AM CLINICAL DOCUMENTATION CONSULTANT COVID - 19 07/13/2023 07/13/2023 07/23/2023 12:1 6 AM CLINICAL DOCUMENTATION CONSULTANT Respiratory Rule Out - RPA 03/17/2024 03/17/2024 1 3:36 PM CDT COVID - 19 04/27/2024 04/27/2024 04/27/2024 2:19 PM CLINICAL DOCUMENTATION CONSULTANT Respiratory Rule-Out 07/24/2024 07/24/2024 025 2:29 PM CLINICAL DOCUMENTATION CONSULTANT COVID - 19 07/24/2024 07/24/2024 07/24/2024 2:29 PM CLINICAL DOCUMENTATION CONSULTANT COVID - 19 08/22/2024 08/22/2024 08/22/2024 11:4 6 PM CDT COVID - 19 09/03/2024 09/03/2024 09/03/2024 12:4 7 PM CDT Assessment Noted Time PHQ-9 Depression Total Score: 1 03/07/20 21 10:29 AM CDT documented as of this encounter Care Teams Hospice Team Lead Relationship Specialty Start Date End Date Keith Craft MD PCP - General Family Medicine 01/14/19 12/26/23 Liz Capellan DO 2 [facility] [address] [place] [address] PCP - General Family Medicine 12/27/23 Quang Locke DO Gastroenterology 01/18/16 Bri Rollins, RN [place] Accounting Intern 03/07/21 05/22/23 [place] [address] [address] 05/25/21 Bri Rollins, RN [place] Nurse Accounting Intern 03/07/21 05/23/23 Werner Swift MD #2 [place] [address] Consulting Physician Pulmonary Disease 01/30/22 Yasmin Restrepo MD #[address] [address] Consulting Physician Endocrinology 07/20/24 Jose Do MD #[address] [address] Consulting Physician Colon and Rectal Surgery 10/12/24 documented as of this encounter
--- OUTSIDE RECORDS SUMMARY | 2024-12-02 13:27 | XMS_ITS | Encounter Summary ---
Author Organization [facility] Address [address] [place] [address] Phone Care Team Providers Care Convertible Power Shovel Operator Name Role Phone Quang Locke Unavailable [phone] Keith Craft MD Primary Care Provider [phone] Bri Rollins RN Unavailable Unavailable Silvio Schulte MD Unavailable [phone] Bri Rollins RN Unavailable Unavailable Wrener Swift MD Unavailable Liz Capellan DO Primary Care Provider [phone] Yasmin Restrepo MD Unavailable Jose Do MD Unavailable Reason for Visit * Reason Comments Medication Refill Encounter Details Date Type Department Care Team (Late st Contact Info) Description 06/01/2020 Refill [facility] - [facility] Medicine [facility] #2 [place] [address] Keith Craft MD #1 [place] [address] Medication Refill Social History Tobacco Use Types [...] COVID-19? No / Unsure 05/24/2020 1:11 PM MANAGER STATISTICAL PROGRAMMING documented as of this encounter Miscellaneous Notes * Telephone Encounter - Yonathan Bonilla MD - 06/01/2020 3:58 PM CST Prescription pending signature GER STATISTICAL PROGRAMMING * Telephone Encounter - Gloria Cornejo RN [...] right upper lobe due to infectious organism [facility] - Family Medicine - Keith Jenkins MD 4 months ago Acute non-recurrent maxillary sinusitis [facility] - Family Medicine - Keith Jenkins MD 7 months ago Chronic prescription opiate use [facility] - Family [facility] - Keith Jenkins MD 10 months ago Coronary artery disease involving [place] coronary artery of [place] heart without angina pectoris [facility] 11 months ago COPD exacerbation (HCC) [facility] [place] Castano, NICOLE Upcoming Appointments Future Appointments In 6 days Keith Craft MD [facility] [place], [facility] FINANCIAL SERVICES CONSULTANT - Recent and Past Visits Recent Visits Date Type Provider Dept 04/25/20 Office Visit Keith Craft MD [facility] 02/02/20 Office Visit Keith Craft MD [facility] 11/02/19 Office Visit Keith Craft MD [facility] 07/27/19 Office Visit Keith Craft MD [facility] 06/10/19 Office Visit Brie Denis, PAC [facility] [place] 04/20/19 Office Visit Keith Craft MD [facility] Showing recent visits within past 460 days with a meds authorizing provider and meeting all other requirements Future Appointments Date Type Provider Dept 06/07/20 Appointment Keith Craft MD [facility] Showing future appointments within next 90 days with a meds authorizing provider and meeting all other requirements GER STATISTICAL PROGRAMMING documented in this encounter Plan of Treatment Upcoming Encounters Date Type Department Care Team (Late st Contact Info) Description 12/04/2024 12:45 PM CDT Office Visit [facility] - [place] [address] [place] [address] Ana Vivar, FAST FOOD ASSISTANT RESTAURANT MANAGER, UTILITY SYSTEMS REPAIRER OPERATOR 2 [facility]. [address] [place] [address] 12/09/2024 11:15 AM CDT Office Visit [facility] General Surgery - [place] [address]2 [facility] [address] [place] [address] Jose Do MD #[address] [address] 01/04/2025 1:30 PM CDT Office Visit [facility] - Pulmonology & Sleep Medicine - [place] [address] [place] [address] Werner Swift MD [address] [place] [address] 03/01/2025 1:30 PM CDT Office Visit [facility] - Endocrinology - [place] [address] [place] [address] Yasmin Restrepo MD #[address] [address] 05/13/2025 1:20 PM MANAGER STATISTICAL PROGRAMMING Office Visit [facility] Family Medicine - [place] [address] [place] [address] Liz Capellan, DO [address] [address] documented as of this encounter Visit Diagnoses Diagnosis Anxiety and depression Dysthymic disorder documented in this encounter Additional Health Concerns Infection Onset Date Last Indicated Resolved Time COVID - 19 01/25/2021 01/25/2021 01/31/2021 8:10 AM CDT Respiratory Rule Out - RPA 01/30/2021 01/30/2021 0 02/01/2021 12:45 AM CDT COVID - 19 07/23/2021 07/23/2021 07/24/2021 6:31 AM MANAGER STATISTICAL PROGRAMMING COVID - 19 10/19/2021 10/19/2021 10/20/2021 7:45 AM CDT Respiratory Rule Out - RPA 10/19/2021 10/19/2021 0 10/20/2021 2:10 PM CDT Stenotrophomonas maltophilia Comment:Must have a follow up respiratory sample to remove isolation/infection flag. 10/20/2021 10/20/2021 COVID - 19 04/20/2022 04/20/2022 04/30/2022 12:1 8 AM MANAGER STATISTICAL PROGRAMMING COVID - 19 07/18/2022 07/18/2022 07/28/2022 12:1 6 AM MANAGER STATISTICAL PROGRAMMING COVID - 19 08/21/2022 08/21/2022 08/22/2022 8:31 AM CDT Respiratory Rule Out - RPA 08/21/2022 08/21/2022 0 08/22/2022 3:21 PM CDT COVID - 19 04/18/2023 04/18/2023 04/28/2023 12:1 6 AM MANAGER STATISTICAL PROGRAMMING COVID - 19 07/13/2023 07/13/2023 07/23/2023 12:1 6 AM MANAGER STATISTICAL PROGRAMMING Respiratory Rule Out - RPA 03/17/2024 03/17/2024 1 3:36 PM CDT COVID - 19 04/27/2024 04/27/2024 04/27/2024 2:19 PM MANAGER STATISTICAL PROGRAMMING Respiratory Rule-Out 07/24/2024 07/24/2024 025 2:29 PM MANAGER STATISTICAL PROGRAMMING COVID - 19 07/24/2024 07/24/2024 07/24/2024 2:29 PM MANAGER STATISTICAL PROGRAMMING COVID - 19 08/22/2024 08/22/2024 08/22/2024 11:4 6 PM CDT COVID - 19 09/03/2024 09/03/2024 09/03/2024 12:4 7 PM CDT Assessment Noted Time PHQ-9 Depression Total Score: 1 06/10/19 20 1:03 PM MANAGER STATISTICAL PROGRAMMING documented as of this encounter Care Teams Convertible Power Shovel Operator Relationship Specialty Start Date End Date Keith Craft MD PCP - General Family Medicine 01/14/19 12/26/23 Liz Capellan DO 2 [facility] [place] [address] PCP - General Family Medicine 12/27/23 Quang Locke DO Gastroenterology 01/18/16 Bri Rollins, RN [place] Wool Puller 03/07/21 05/22/23 [place] [id number] [address] 05/25/21 Bri Rollins, KATEY [place] Nurse Wool Puller 03/07/21 05/23/23 Werner Swift MD #2 [place] [address] Consulting Physician Pulmonary Disease 01/30/22 Yasmin Restrepo MD #[address] [address] Consulting Physician Endocrinology 07/20/24 Jose Do MD #[address] [address] Consulting Physician Colon and Rectal Surgery 10/12/24 documented as of this encounter
--- OUTSIDE RECORDS SUMMARY | 2024-12-02 13:27 | XMS_ITS | Encounter Summary ---
Author Organization [facility] Address [address] [place] [address] Phone Care Team Providers Care Senior Cyber Intelligence Analyst Name Role Phone Quang Locke Unavailable [phone] Keith Craft MD Primary Care Provider [phone] Bri Rollins RN Unavailable Unavailable Silvio Schulte MD Unavailable [phone] Bri Rollins RN Unavailable Unavailable Werner Swift MD Unavailable Liz Capellan DO Primary Care Provider [phone] Yasmin Restrepo MD Unavailable Jose Do MD Unavailable Reason for Visit * Reason Comments Medication Refill Encounter Details Date Type Department Care Team (Late st Contact Info) Description 03/31/2020 Refill [facility] - [facility] Medicine [facility] #2 [place] [address] Keith Craft MD #1 [place] [address] Medication Refill Social History Tobacco Use Types [...] 1 month ago Acute non-recurrent maxillary sinusitis [facility] Keith Lemus MD 5 months ago Chronic prescription opiate use [facility] Keith Lemus MD 8 months ago Coronary artery disease involving [place] coronary artery of [place] heart without angina pectoris [facility] Keith Lemus MD 9 months ago COPD exacerbation (HCC) [facility] Brie Vieira PAC 11 months ago Type 2 diabetes mellitus with diabetic neuropathy, with long-term current use of insulin (HCC) [facility] Keith Lemus MD Upcoming Appointments Future Appointments In 2 months Keith Craft MD [facility] YULIA Mckeon COTTON MACHINE OPERATOR - Recent and Past Visits Recent Visits Date Type Provider Dept 02/02/20 Office Visit Keith Craft MD [facility] [place] 11/02/19 Office Visit Keith Craft MD [facility] 07/27/19 Office Visit Keith Craft MD [facility] 06/10/19 Office Visit Cira Brie PalmaNICOLE [facility] [place] 04/20/19 Office Visit Keith Craft MD [facility] 01/14/19 Office Visit Keith Craft MD [facility] [place] Showing recent visits within past 460 days with a meds authorizing provider and meeting all other requirements Future Appointments Date Type Provider Dept 06/07/20 Appointment Keith Craft MD [facility] Showing future appointments within next 90 days with a meds authorizing provider and meeting all other requirements GAUGER documented in this encounter Plan of Treatment Upcoming Encounters Date Type Department Care Team (Late st Contact Info) Description 12/04/2024 12:45 PM CDT Office Visit [facility] Medical [facility] - Family Medicine - [place] #2 [facility] [address] Ana Vivar, REBECCA, DOUGH SCALER AND MIXER 2 [facility] [address] [place] [address] 12/09/2024 11:15 AM CDT Office Visit [facility] Medical [facility] - General Surgery - [place] #2 [facility] [address] [place] [address] Jose Do MD #2 [facility] [address] [place] [address] 01/04/2025 1:30 PM CDT Office Visit [facility] - Pulmonology & Sleep Medicine - [place] #2 [facility] [place] [address] Werner Swift MD #2 [place] [address] 03/01/2025 1:30 PM CDT Office Visit [facility] Medical [facility] - Endocrinology - [place] #2 [place] [phone] Yasmin Restrepo MD #[address] [phone] 05/13/2025 1:20 PM MAT GAUGER Office Visit [facility] - Family Medicine - [place] [address]2 [place] [address] Liz Capellan, DO [address] [address] documented as of this encounter Visit Diagnoses Diagnosis Anxiety and depression Dysthymic disorder documented in this encounter Additional Health Concerns Infection Onset Date Last Indicated Resolved Time COVID - 19 01/25/2021 01/25/2021 01/31/2021 8:10 AM CDT Respiratory Rule Out - RPA 01/30/2021 01/30/2021 0 02/01/2021 12:45 AM CDT COVID - 19 07/23/2021 07/23/2021 07/24/2021 6:31 AM MAT GAUGER COVID - 19 10/19/2021 10/19/2021 10/20/2021 7:45 AM CDT Respiratory Rule Out - RPA 10/19/2021 10/19/2021 0 10/20/2021 2:10 PM CDT Stenotrophomonas maltophilia Comment:Must have a follow up respiratory sample to remove isolation/infection flag. 10/20/2021 10/20/2021 COVID - 19 04/20/2022 04/20/2022 04/30/2022 12:1 8 AM MAT GAUGER COVID - 19 07/18/2022 07/18/2022 07/28/2022 12:1 6 AM MAT GAUGER COVID - 19 08/21/2022 08/21/2022 08/22/2022 8:31 AM CDT Respiratory Rule Out - RPA 08/21/2022 08/21/2022 0 08/22/2022 3:21 PM CDT COVID - 19 04/18/2023 04/18/2023 04/28/2023 12:1 6 AM MAT GAUGER COVID - 19 07/13/2023 07/13/2023 07/23/2023 12:1 6 AM MAT GAUGER Respiratory Rule Out - RPA 03/17/2024 03/17/2024 1 3:36 PM CDT COVID - 19 04/27/2024 04/27/2024 04/27/2024 2:19 PM MAT GAUGER Respiratory Rule-Out 07/24/2024 07/24/2024 2:29 PM MAT GAUGER COVID - 19 07/24/2024 07/24/2024 07/24/2024 2:29 PM MAT GAUGER COVID - 19 08/22/2024 08/22/2024 08/22/2024 11:4 6 PM CDT COVID - 19 09/03/2024 09/03/2024 09/03/2024 12:4 7 PM CDT Assessment Noted Time PHQ-9 Depression Total Score: 1 06/10/19 20 1:03 PM MAT GAUGER documented as of this encounter Care Teams Senior Cyber Intelligence Analyst Relationship Specialty Start Date End Date Keith Craft MD PCP - General Family Medicine 01/14/19 12/26/23 Liz Capellan DO [address] [address] PCP - General Family Medicine 12/27/23 Quang Locke DO Gastroenterology 01/18/16 Bri Rollins RN [place] D[employer]ified Crops I Farmworker 03/07/21 05/22/23 [place] [address] [address] 05/25/21 Bri Rollins, RN [place] Nurse [employer]ified Crops I Farmworker 03/07/21 05/23/23 Werner Swift MD #2 [place] [phone] Consulting Physician Pulmonary Disease 01/30/22 Yasmin Restrepo MD #[address] [address] Consulting Physician Endocrinology 07/20/24 Jose Do MD #[address] [address] Consulting Physician Colon and Rectal Surgery 10/12/24 documented as of this encounter
--- OUTSIDE RECORDS SUMMARY | 2024-12-02 13:27 | XMS_ITS | Encounter Summary ---
Author Organization [facility] Address [address] [place] [address] Phone Care Team Providers Care Mercerizer Name Role Phone Quang Locke Unavailable [phone] Keith Craft MD Primary Care Provider [phone] Bri Rollins RN Unavailable Unavailable Silvio Schulte MD Unavailable [phone] Bri Rollins RN Unavailable Unavailable Werner Swift MD Unavailable Liz Capellan DO Primary Care Provider Yasmin Restrepo MD Unavailable Jose Do MD Unavailable Reason for Visit * Reason Comments Medication Refill Encounter Details Date Type Department Care Team (Late st Contact Info) Description 07/11/2020 Refill [facility] - Family Medicine [facility] #2 [place] [address] Keith Craft MD #1 [place] [address] Medication Refill Social History Tobacco Use Types [...] COVID-19? No / Unsure 07/02/2020 2:53 PM FIELD INSTALLATION TECHNICIAN documented as of this encounter Miscellaneous [...] Outpatient Visits 1 month ago Mixed hyperlipidemia [facility] - Family [facility] Keith Lemus MD 2 months ago Pneumonia of right upper lobe due to infectious organism [facility] Keith Lemus MD 5 months ago Acute non-recurrent maxillary sinusitis [facility] Keith Lemus MD 8 months ago Chronic prescription opiate use [facility] Keith Lemus MD 11 months ago Coronary artery disease involving [place] coronary artery of [place] heart without angina pectoris [facility] - Keith Jenkins MD Upcoming Appointments Future Appointments In 2 weeks [facility]ND [facility] Medicine - [facility], [place] In 2 months Keith Craft MD [facility] - [facility] COPIER FIELD SERVICE TECHNICIAN - Recent and Past Visits Recent Visits Date Type Provider Dept 06/07/20 Office Visit Keith Craft, MD [facility] 04/25/20 Office Visit Keith Craft, [facility] 02/02/20 Office Visit Keith Craft MD [facility] 11/02/19 Office Visit Keith Craft MD [facility] 07/27/19 Office Visit Keith Craft MD [facility] 06/10/19 Office Visit Brie Denis, [facility] [place] 04/20/19 Office Visit Keith Craft, [facility] [place] Showing recent visits within past 460 days with a meds authorizing provider and meeting all other requirements Future Appointments Date Type Provider Dept 10/04/20 Appointment Keith Craft MD [facility] Showing future appointments within next 90 days with a meds authorizing provider and meeting all other requirements D INSTALLATION TECHNICIAN documented in this encounter Plan of Treatment Upcoming Encounters Date Type Department Care Team (Late st Contact Info) Description 12/04/2024 12:45 PM CDT Office Visit [facility] Family Medicine - [place] #2 [place] [address] Ana Vivar, WATER RESOURCE ENGINEERING SPECIALIST, DIETARY SERVICE AIDE 2 [facility]. [address] [place] [address] 12/09/2024 11:15 AM CDT Office Visit [facility] General Surgery - [place] [address] [place] [address] Jose Do MD #[address] [address] 01/04/2025 1:30 PM CDT Office Visit [facility] Medical [facility] - Pulmonology & Sleep Medicine - [place] #2 [place] [address] Werner Swift MD #2 [place] [address] 03/01/2025 1:30 PM CDT Office Visit [facility] - Endocrinology - [place] [address] [place] [address] Yasmin Restrepo MD #[address] [address] 05/13/2025 1:20 PM FIELD INSTALLATION TECHNICIAN Office Visit [facility] - Family Medicine - [place] [address] [place] [address] Liz Capellan, DO [address] [address] documented as of this encounter Visit Diagnoses [...] 19 07/23/2021 07/23/2021 07/24/2021 6:31 AM FIELD INSTALLATION TECHNICIAN COVID - 19 10/19/2021 10/19/2021 10/20/2021 7:45 AM CDT Respiratory Rule Out - RPA 10/19/2021 10/19/2021 0 10/20/2021 2:10 PM CDT Stenotrophomonas maltophilia Comment:Must have a follow up respiratory sample to remove isolation/infection flag. 10/20/2021 10/20/2021 COVID - 19 04/20/2022 04/20/2022 04/30/2022 12:1 8 AM FIELD INSTALLATION TECHNICIAN COVID - 19 07/18/2022 07/18/2022 07/28/2022 12:1 6 AM FIELD INSTALLATION TECHNICIAN COVID - 19 08/21/2022 08/21/2022 08/22/2022 8:31 AM CDT Respiratory Rule Out - RPA 08/21/2022 08/21/2022 0 08/22/2022 3:21 PM CDT COVID - 19 04/18/2023 04/18/2023 04/28/2023 12:1 6 AM FIELD INSTALLATION TECHNICIAN COVID - 19 07/13/2023 07/13/2023 07/23/2023 12:1 6 AM FIELD INSTALLATION TECHNICIAN Respiratory Rule Out - RPA 03/17/2024 03/17/2024 1 3:36 PM CDT COVID - 19 04/27/2024 04/27/2024 04/27/2024 2:19 PM FIELD INSTALLATION TECHNICIAN Respiratory Rule-Out 07/24/2024 07/24/2024 025 2:29 PM FIELD INSTALLATION TECHNICIAN COVID - 19 07/24/2024 07/24/2024 07/24/2024 2:29 PM FIELD INSTALLATION TECHNICIAN COVID - 19 08/22/2024 08/22/2024 08/22/2024 11:4 6 PM CDT COVID - 19 09/03/2024 09/03/2024 09/03/2024 12:4 7 PM CDT Assessment Noted Time PHQ-9 Depression Total Score: 2 06/07/19 21 2:34 PM FIELD INSTALLATION TECHNICIAN documented as of this encounter Care Teams Mercerizer Relationship Specialty Start Date End Date Keith Craft MD PCP - General Family Medicine 01/14/19 12/26/23 Liz Capellan DO 2 [facility] [place] [address] PCP - General Family Medicine 12/27/23 Quang Locke DO Gastroenterology 01/18/16 Bri Rollins, RN [place] Welder [employer] 03/07/21 05/22/23 [place] [address] [address] 05/25/21 Bri Rollins RN [place] Nurse Welder [employer]ed [employer] 03/07/21 05/23/23 Werner Swift MD #2 [place] [address] Consulting Physician Pulmonary Disease 01/30/22 Yasmin Restrepo MD #[address] [address] Consulting Physician Endocrinology 07/20/24 Jose Do MD #[address] [address] Consulting Physician Colon and Rectal Surgery 10/12/24 documented as of this encounter
--- OUTSIDE RECORDS SUMMARY | 2024-12-02 13:27 | XMS_ITS | Encounter Summary ---
Author Organization [facility] Address [address] [place] [address] Phone Care Team Providers Care Photographer Model Name Role Phone Quang Locke Unavailable [phone] Keith Craft MD Primary Care Provider [phone] Bri Rollins RN Unavailable Unavailable Silvio Schulte MD Unavailable [phone] Bri Rollins RN Unavailable Unavailable Werner Swift MD Unavailable Liz Capellan DO Primary Care Provider Yasmin Restrepo MD Unavailable Jose Do MD Unavailable Reason for Visit * Reason Comments Medication Refill Encounter Details Date Type Department Care Team (Late st Contact Info) Description 02/13/2020 Refill [facility] #2 [place] [address] Keith Craft MD #1 [place] [address] Medication Refill Social History Tobacco Use Types [...] diabetic neuropathy, with long-term current use of insulin([facility]) [facility] Keith Lemus MD 3 months ago Chronic prescription opiate use [facility] Keith Lemus MD 6 months ago Coronary artery disease involving [place] coronary artery of [place] heart without angina pectoris [facility] Keith Lemus MD 8 months ago COPD exacerbation (HCC) [facility] Brie Vieira PAC 10 months ago Type 2 diabetes mellitus with diabetic neuropathy, with long-term current use of insulin ([facility]) [facility] Keith Lemus MD Upcoming Appointments Future Appointments In 3 months Keith Craft MD [facility] MANAGER RESPIRATORY CARE - Recent and Past Visits Recent Visits Date Type Provider Dept 02/02/20 Office Visit Keith Craft MD [facility] 11/02/19 Office Visit Keith Craft MD [facility] 07/27/19 Office Visit Keith Craft MD [facility] 06/10/19 Office Visit Brie Denis PAC [facility] 04/20/19 Office Visit Keith Craft MD [facility] 01/14/19 Office Visit Keith Craft MD [facility] Showing recent visits within past [...] diabetic neuropathy, with long-term current use of insulin([facility]) [facility] Keith Jenkins MD 3 months ago Chronic prescription opiate use [facility] Keith Jenkins MD 6 months ago Coronary artery disease involving [place] coronary artery of [place] heart without angina pectoris [facility] Keith Lemus MD 8 months ago COPD exacerbation ([facility]) [facility] Brie Castano PAC 10 months ago Type 2 diabetes mellitus with diabetic neuropathy, with long-term current use of insulin ([facility]) [facility] [place] Keith Craft MD Upcoming Appointments Future Appointments In 3 months Keith Craft MD [facility] MANAGER RESPIRATORY CARE - Recent and Past Visits Recent Visits Date Type Provider Dept 02/02/20 Office Visit Keith Craft MD [facility] 11/02/19 Office Visit Keith Craft MD [facility] 07/27/19 Office Visit Keith Craft MD [facility] 06/10/19 Office Visit Brie Denis, NICOLE [facility] [place] 04/20/19 Office Visit Keith Craft MD [facility] 01/14/19 Office Visit Keith Craft MD [facility] Showing recent visits within past 460 [...] 12:45 PM CDT Office Visit [facility] [place] #[address] [place] [address] Ana Vivar, RESEARCH SPEC, POWER SYSTEM ELECTRICAL ENGINEER 2 [facility] [address] [place] [address] 12/09/2024 11:15 AM CDT Office Visit [facility] General Surgery - [place] #2 [facility] [address] [place] [address] Jose Do MD #[address] [address] 01/04/2025 1:30 PM CDT Office Visit [facility] - Pulmonology & Sleep Medicine - [place] #2 [place] [address] Werner Swift MD #2 [place] [address] 03/01/2025 1:30 PM CDT Office Visit [facility] - Endocrinology - [place] #2 [place] [address] Yasmin Restrepo MD #[address] [address] 05/13/2025 1:20 PM LICENSED EMBALMER Office Visit [facility] - Family Medicine - [place] #2 [place] [address] Liz Capellan, DO [address] [address] documented as of this encounter Visit Diagnoses Diagnosis Anxiety and depression Dysthymic disorder documented in this encounter Additional Health Concerns Infection Onset Date Last Indicated Resolved Time COVID - 19 01/25/2021 01/25/2021 01/31/2021 8:10 AM CDT Respiratory Rule Out - RPA 01/30/2021 01/30/2021 0 02/01/2021 12:45 AM CDT COVID - 19 07/23/2021 07/23/2021 07/24/2021 6:31 AM LICENSED EMBALMER COVID - 19 10/19/2021 10/19/2021 10/20/2021 7:45 AM CDT Respiratory Rule Out - RPA 10/19/2021 10/19/2021 0 10/20/2021 2:10 PM CDT Stenotrophomonas maltophilia Comment:Must have a follow up respiratory sample to remove isolation/infection flag. 10/20/2021 10/20/2021 COVID - 19 04/20/2022 04/20/2022 04/30/2022 12:1 8 AM LICENSED EMBALMER COVID - 07/18/2022 07/18/2022 07/28/2022 12:1 6 AM LICENSED EMBALMER COVID - 19 08/21/2022 08/21/2022 08/22/2022 8:31 AM CDT Respiratory Rule Out - RPA 08/21/2022 08/21/2022 0 08/22/2022 3:21 PM CDT COVID - 19 04/18/2023 04/18/2023 04/28/2023 12:1 6 AM LICENSED EMBALMER COVID - 19 07/13/2023 07/13/2023 07/23/2023 12:1 6 AM LICENSED EMBALMER Respiratory Rule Out - RPA 03/17/2024 03/17/2024 1 3:36 PM CDT COVID - 19 04/27/2024 04/27/2024 04/27/2024 2:19 PM LICENSED EMBALMER Respiratory Rule-Out 07/24/2024 07/24/2024 025 2:29 PM LICENSED EMBALMER COVID - 19 07/24/2024 07/24/2024 07/24/2024 2:29 PM LICENSED EMBALMER COVID - 19 08/22/2024 08/22/2024 08/22/2024 11:4 6 PM CDT COVID - 19 09/03/2024 09/03/2024 09/03/2024 12:4 7 PM CDT Assessment Noted Time PHQ-9 Depression Total Score: 1 06/10/19 20 1:03 PM LICENSED EMBALMER documented as of this encounter Care Teams Photographer Model Relationship Specialty Start Date End Date Keith Craft MD PCP - General Family Medicine 01/14/19 12/26/23 Liz Capellan DO 2 [facility] [address] [address] PCP - General Family Medicine 12/27/23 Quang Locke DO Gastroenterology 01/18/16 Bri Rollins, RN [place] Driver Medic 03/07/21 05/22/23 [place] [id number] [address] 05/25/21 Bri Rollins RN [place] Nurse Driver Medic 03/07/21 05/23/23 Werner Swift MD #2 [place] [address] Consulting Physician Pulmonary Disease 01/30/22 Yasmin Restrepo MD #[address] [address] Consulting Physician Endocrinology 07/20/24 Jose Do MD #[address] [address] Consulting Physician Colon and Rectal Surgery 10/12/24 documented as of this encounter
--- OUTSIDE RECORDS SUMMARY | 2024-12-02 13:27 | XMS_ITS | Encounter Summary ---
Author Organization [facility] Address [address] [place] [address] Phone Care Team Providers Care Senior Clinical Data Coordinator Name Role Phone Quang Locke Unavailable [phone] Keith Craft MD Primary Care Provider [phone] Bri Rollins RN Unavailable Unavailable Silvio Schulte MD Unavailable [phone] Bri Rollins RN Unavailable Unavailable Werner Swift MD Unavailable Liz Capellan DO Primary Care Provider [phone] Yasmin Restrepo MD Unavailable Jose Do MD Unavailable Reason for Visit * Reason Onset Date Comments Medication Refill 05/11/2020 Encounter Details Date Type Department Care Team (Late st Contact Info) Description 05/11/2020 Refill [facility] [address] [place] [address] Keith Craft MD [address] [place] [address] Medication Refill Social History Tobacco Use Types [...] COVID-19? No / Unsure 04/25/2020 1:42 PM HYDRAULIC PILE HAMMER OPERATOR documented as of this encounter Miscellaneous [...] right upper lobe due to infectious organism [facility] - Keith Jenkins MD 3 months ago Acute non-recurrent maxillary sinusitis [facility] Keith Lemus MD 6 months ago Chronic prescription opiate use [facility] Keith Lemus MD 9 months ago Coronary artery disease involving [place] coronary artery of [place] heart without angina pectoris [facility] Keith Lemus MD 11 months ago COPD exacerbation (HCC) [facility] - Brie Castano, PAC Upcoming Appointments Future Appointments In 3 weeks Keith Craft MD [facility] UI UX ENGINEER - Recent and Past Visits Recent [...] authorizing provider and meeting all other requirements AULIC PILE HAMMER OPERATOR * Telephone Encounter - Missy Mcdonough - 05/11/2020 8:23 AM CST Received: []FAX [x]TELEPHONE CALL []MYCHART from: []PHARMACY [x]PATIENT/OTHER regarding medication management. Medication name and dose: Requested Prescriptions Pending Prescriptions Disp Refills ??? HYDROcodone-acetaminophen (NORCO) 5-325 MG Tablet 30 Tab 0 Sig: Take 1 Tab by mouth daily. Quantity: (30 day, 90 day, 3 monthly scripts) 30 Pharmacy preference for this medication: [facility]/pharmacy #[id number] Outcome: [x]Medication pended, routed to surescripts []Medication refused []Informed caller of refills at pharmacy []Additional message to medication management RN []Verbal authorization for written order to pharmacy []Additional message to provider []Verified medication with pharmacy Missy Medication Management AULIC PILE HAMMER OPERATOR documented in this encounter Plan of Treatment Upcoming Encounters Date Type Department Care Team (Late st Contact Info) Description 12/04/2024 12:45 PM CDT Office Visit [facility] Family Medicine - [place] #2 [facility] [place] [address] Ana Vivar, BLENDER OPERATOR, GRADUATE INTERN 2 [facility] [address] [place] [address] 12/09/2024 11:15 AM CDT [facility] [place] #2 [facility] [address] [place] [address] Jose Do MD #[address] [place] [address] 01/04/2025 1:30 PM CDT Office Visit [facility] Medical [facility] - Pulmonology & Sleep Medicine - [place] #2 [place] [address] Werner Swift MD #2 [facility] [address] 03/01/2025 1:30 PM CDT Office Visit [facility] - Endocrinology - [place] #2 [place] [address] Yasmin Restrepo MD #[address] [place] [address] 05/13/2025 1:20 PM HYDRAULIC PILE HAMMER OPERATOR Office Visit [facility] Family Medicine - [place] #2 [facility] [place] [address] Liz Capellan, DO 2 [facility] [address] [place] [address] documented as of this encounter Visit Diagnoses [...] - 19 07/23/2021 07/23/2021 07/24/2021 6:31 AM HYDRAULIC PILE HAMMER OPERATOR COVID - 19 10/19/2021 10/19/2021 10/20/2021 7:45 AM CDT Respiratory Rule Out - RPA 10/19/2021 10/19/2021 0 10/20/2021 2:10 PM CDT Stenotrophomonas maltophilia Comment:Must have a follow up respiratory sample to remove isolation/infection flag. 10/20/2021 10/20/2021 COVID - 19 04/20/2022 04/20/2022 04/30/2022 12:1 8 AM HYDRAULIC PILE HAMMER OPERATOR COVID - 19 07/18/2022 07/18/2022 07/28/2022 12:1 6 AM HYDRAULIC PILE HAMMER OPERATOR COVID - 19 08/21/2022 08/21/2022 08/22/2022 8:31 AM CDT Respiratory Rule Out - RPA 08/21/2022 08/21/2022 0 08/22/2022 3:21 PM CDT COVID - 19 04/18/2023 04/18/2023 04/28/2023 12:1 6 AM HYDRAULIC PILE HAMMER OPERATOR COVID - 19 07/13/2023 07/13/2023 07/23/2023 12:1 6 AM HYDRAULIC PILE HAMMER OPERATOR Respiratory Rule Out - RPA 03/17/2024 03/17/2024 1 3:36 PM CDT COVID - 19 04/27/2024 04/27/2024 04/27/2024 2:19 PM HYDRAULIC PILE HAMMER OPERATOR Respiratory Rule-Out 07/24/2024 07/24/2024 025 2:29 PM HYDRAULIC PILE HAMMER OPERATOR COVID - 19 07/24/2024 07/24/2024 07/24/2024 2:29 PM HYDRAULIC PILE HAMMER OPERATOR COVID - 19 08/22/2024 08/22/202408/22/2024 11:4 6 PM CDT COVID - 19 09/03/2024 09/03/2024 09/03/2024 12:4 7 PM CDT Assessment Noted Time PHQ-9 Depression Total Score: 1 06/10/19 20 1:03 PM HYDRAULIC PILE HAMMER OPERATOR documented as of this encounter Care Teams Senior Clinical Data Coordinator Relationship Specialty Start Date End Date Keith Craft MD PCP - General Family Medicine 01/14/19 12/26/23 Liz Capellan DO [address] [address] PCP - General Family Medicine 12/27/23 Quang Locke DO Gastroenterology 01/18/16 Bri Rollins, RN [place] Inspector Missile 03/07/21 05/22/23 [place] [id number] [address] 05/25/21 Bri Rollins, RN [place] Nurse Inspector Missile 03/07/21 05/23/23 Werner Swift MD #2 [place] [address] Consulting Physician Pulmonary Disease 01/30/22 Yasmin Restrepo MD #[address] [address] Consulting Physician Endocrinology 07/20/24 Jose Do MD #[address] [address] Consulting Physician Colon and Rectal Surgery 10/12/24 documented as of this encounter
--- OUTSIDE RECORDS SUMMARY | 2024-12-02 13:27 | XMS_ITS | Encounter Summary ---
Author Organization [facility] Address [address] [place] [address] Phone Care Team Providers Care Steerer Name Role Phone Quang Locke Unavailable [phone] Keith Craft MD Primary Care Provider [phone] Bri Rollins RN Unavailable Unavailable Silvio Schulte MD Unavailable [phone] Bri Rollins RN Unavailable Unavailable Werner Swift MD Unavailable Liz Capellan DO Primary Care Provider [phone] Yasmin Restrepo MD Unavailable Jose Do MD Unavailable Reason for Visit * Reason Comments Medication Refill Encounter Details Date Type Department Care Team (Late st Contact Info) Description 03/03/2020 Refill [facility] - Family [facility] #2 [place] [address] Keith Craft MD #1 [place] [address] Medication Refill Social History Tobacco Use Types [...] 1 month ago Acute non-recurrent maxillary sinusitis [facility] - Keith Jenkins MD 4 months ago Chronic prescription opiate use [facility] Keith Jenkins MD 7 months ago Coronary artery disease involving [place] coronary artery of [place] heart without angina pectoris [facility] Keith Jenkins MD 8 months ago COPD exacerbation (HCC) [facility] Brie Castano PAC 10 months ago Type 2 diabetes mellitus with diabetic neuropathy, with long-term current use of insulin (HCC) [facility] Keith Jenkins MD Upcoming Appointments Future Appointments In 3 months Keith Craft MD [facility] [place], [facility] FLOORWORKER LASTING - Recent and Past Visits Recent Visits Date Type Provider Dept 02/02/20 Office Visit Keith Craft MD [facility] 11/02/19 Office Visit Keith Craft MD [facility] 07/27/19 [facility] 06/10/19 Office Visit Brie Denis [facility] 04/20/19 Office Visit [facility] 01/14/19 Office Visit Keith Craft MD [facility] Showing recent visits within past 460 [...] [facility] - [place] #2 [place] [address] Ana Vivar APRN, ENVIRONMENTAL ENGINEERING ASSISTANT 2 [facility] [address] [place] [address] 12/09/2024 11:15 AM CDT Office Visit [facility] Medical [facility] - General Surgery - [place] #2 [facility] [address] [place] [address] Jose Do MD #2 [facility] [address] [place] [address] 01/04/2025 1:30 PM CDT Office Visit [facility] [place] [facility] - Pulmonology & Sleep Medicine - [place] #2 [place] [address] Werner Swift MD #2 [facility] [address] 03/01/2025 1:30 PM CDT Office Visit [facility] Medical [facility] - Endocrinology - [place] #2 [facility] [place] [address] Yasmin Restrepo MD #2 [facility] [address] [place] [address] 05/13/2025 1:20 PM PARKING GARAGE MANAGER Office Visit [facility] - Family Medicine - [place] #2 [place] [address] Liz Capellan, DO 2 [facility] [address] [facility] [address] [place] [address] documented as of this encounter Visit Diagnoses Diagnosis Anxiety and depression Dysthymic disorder documented in this encounter Additional Health Concerns Infection Onset Date Last Indicated Resolved Time COVID - 19 01/25/2021 01/25/2021 01/31/2021 8:10 AM CDT Respiratory Rule Out - RPA 01/30/2021 01/30/2021 0 02/01/2021 12:45 AM CDT COVID - 19 07/23/2021 07/23/2021 07/24/2021 6:31 AM PARKING GARAGE MANAGER COVID - 19 10/19/2021 10/19/2021 10/20/2021 7:45 AM CDT Respiratory Rule Out - RPA 10/19/2021 10/19/2021 0 10/20/2021 2:10 PM CDT Stenotrophomonas maltophilia Comment:Must have a follow up respiratory sample to remove isolation/infection flag. 10/20/2021 10/20/2021 COVID - 19 04/20/2022 04/20/2022 04/30/2022 12:1 8 AM PARKING GARAGE MANAGER COVID - 19 07/18/2022 07/18/2022 07/28/2022 12:1 6 AM PARKING GARAGE MANAGER COVID - 19 08/21/2022 08/21/2022 08/22/2022 8:31 AM CDT Respiratory Rule Out - RPA 08/21/2022 08/21/2022 0 08/22/2022 3:21 PM CDT COVID - 19 04/18/2023 04/18/2023 04/28/2023 12:1 6 AM PARKING GARAGE MANAGER COVID - 19 07/13/2023 07/13/2023 07/23/2023 12:1 6 AM PARKING GARAGE MANAGER Respiratory Rule Out - RPA 03/17/2024 03/17/2024 1 3:36 PM CDT COVID - 19 04/27/2024 04/27/2024 04/27/2024 2:19 PM PARKING GARAGE MANAGER Respiratory Rule-Out 07/24/2024 07/24/2024 025 2:29 PM PARKING GARAGE MANAGER COVID - 19 07/24/2024 07/24/2024 07/24/2024 2:29 PM PARKING GARAGE MANAGER COVID - 19 08/22/2024 08/22/2024 08/22/2024 11:4 6 PM CDT COVID - 19 09/03/2024 09/03/2024 09/03/2024 12:4 7 PM CDT Assessment Noted Time PHQ-9 Depression Total Score: 1 06/10/19 20 1:03 PM PARKING GARAGE MANAGER documented as of this encounter Care Teams Steerer Relationship Specialty Start Date End Date Keith Craft MD PCP - General Family Medicine 01/14/19 12/26/23 Liz Capellan DO [address] [address] PCP - General Family Medicine 12/27/23 Quang Locke DO Gastroenterology 01/18/16 Bri Rollins RN [place] Real Time Analyst 03/07/21 05/22/23 [place] [address] [address] [place] [address] 05/25/21 Bri Rollins, KATEY [place] Nurse Real Time Analyst 03/07/21 05/23/23 eWrner Swift MD #2 [place] [address] Consulting Physician Pulmonary Disease 01/30/22 Yasmin Restrepo MD #[address] [address] Consulting Physician Endocrinology 07/20/24 Jose Do MD #[address] [address] Consulting Physician Colon and Rectal Surgery 10/12/24 documented as of this encounter
--- OUTSIDE RECORDS SUMMARY | 2024-12-02 13:27 | XMS_ITS | Encounter Summary ---
Author Organization [facility] Address [address] [place] [address] Phone Care Team Providers Care Cable Installation Technician Name Role Phone Quang Locke Unavailable [phone] Keith Craft MD Primary Care Provider [phone] Bri Rollins RN Unavailable Unavailable Silvio Schulte MD Unavailable [phone] Bri Rollins RN Unavailable Unavailable Werner Swift MD Unavailable Liz Capellan DO Primary Care Provider [phone] Yasmin Restrepo MD Unavailable Jose Do MD Unavailable Reason for Visit * Reason Comments Medication Refill Encounter Details Date Type Department Care Team (Late st Contact Info) Description 05/10/2021 Refill [facility] #2 [place] [address] Keith Craft MD #1 [place] [address] Medication Refill Social History Tobacco Use Types [...] COVID-19? No / Unsure 05/05/2021 3:02 PM FOREIGN BANKNOTE TELLER TRADER documented as of this encounter Miscellaneous Notes [...] [place] 02/03/21 [facility] 01/12[facility]21 Office Visit Keith Craft MD [facility] 10/12/20 Office Visit Keith Craft MD [facility] 10/04/20 Office Visit Keith Craft MD [facility] 06/07/20 Office Visit Keith Craft MD [facility] Showing recent visits within past 365 days and meeting all other requirements Future Appointments No visits were found meeting these conditions. Showing future appointments within next 90 days and meeting all other requirements IGN BANKNOTE TELLER TRADER documented in this encounter Plan of Treatment Upcoming Encounters Date Type Department Care Team (Late st Contact Info) Description 12/04/2024 12:45 PM CDT Office Visit [facility] - Family Medicine - [place] #2 [place] [address] Ana Vivar, PATIENT RELATIONS SPECIALIST, LINING STAMPER 2 [facility] [address] [place] [address] 12/09/2024 11:15 AM CDT Office Visit [facility] - [place] #[address] [address] Jose oD MD #[address] [address] 01/04/2025 1:30 PM CDT Office Visit [facility] - Pulmonology & Sleep Medicine - [place] #2 [place] [address] Werner Swift MD #2 [place] [address] 03/01/2025 1:30 PM CDT Office Visit [facility] - Endocrinology - [place] [address] [place] [address] Yasmin Restrepo MD #2 [facility] [address] [place] [address] 05/13/2025 1:20 PM FOREIGN BANKNOTE TELLER TRADER Office Visit [facility] - Family Medicine - [place] [address] [place] [address] Liz Capellan, DO 2 [facility]. [address] [place] [address] documented as of this encounter Goals Goal [...] plan education. I will notify my Senior Quality Assurance Analyst if my symptoms fall in the [...] - 19 07/23/2021 07/23/2021 07/24/2021 6:31 AM FOREIGN BANKNOTE TELLER TRADER COVID - 19 10/19/2021 10/19/2021 10/20/2021 7:45 AM CDT Respiratory Rule Out - RPA 10/19/2021 10/19/2021 0 10/20/2021 2:10 PM CDT Stenotrophomonas maltophilia Comment:Must have a follow up respiratory sample to remove isolation/infection flag. 10/20/2021 10/20/2021 COVID - 19 04/20/2022 04/20/2022 04/30/2022 12:1 8 AM FOREIGN BANKNOTE TELLER TRADER COVID - 19 07/18/2022 07/18/2022 07/28/2022 12:1 6 AM FOREIGN BANKNOTE TELLER TRADER COVID - 19 08/21/2022 08/21/2022 08/22/2022 8:31 AM CDT Respiratory Rule Out - RPA 08/21/2022 08/21/2022 0 08/22/2022 3:21 PM CDT COVID - 19 04/18/2023 04/18/2023 04/28/2023 12:1 6 AM FOREIGN BANKNOTE TELLER TRADER COVID - 19 07/13/2023 07/13/2023 07/23/2023 12:1 6 AM FOREIGN BANKNOTE TELLER TRADER Respiratory Rule Out - RPA 03/17/2024 03/17/2024 1 3:36 PM CDT COVID - 19 04/27/2024 04/27/2024 04/27/2024 2:19 PM FOREIGN BANKNOTE TELLER TRADER Respiratory Rule-Out 07/24/2024 07/24/2024 025 2:29 PM FOREIGN BANKNOTE TELLER TRADER COVID - 19 07/24/2024 07/24/2024 07/24/2024 2:29 PM FOREIGN BANKNOTE TELLER TRADER COVID - 19 08/22/2024 08/22/2024 08/22/2024 11:4 6 PM CDT COVID - 19 09/03/2024 09/03/2024 09/03/2024 12:4 7 PM CDT Assessment Noted Time PHQ-9 Depression Total Score: 1 03/07/20 21 10:29 AM CDT documented as of this encounter Care Teams Cable Installation Technician Relationship Specialty Start Date End Date Keith Craft MD PCP - General Family Medicine 01/14/19 12/26/23 Liz Capellan DO 2 [facility] [address] [place] [address] PCP - General Family Medicine 12/27/23 Quang Locke DO Gastroenterology 01/18/16 Bri Rollins, RN [place] Senior Quality Assurance Analyst 03/07/21 05/22/23 [place] [id number] [address] 05/25/21 Bri Rollins, RN [place] Nurse Senior Quality Assurance Analyst 03/07/21 05/23/23 Werner Swift MD #2 [place] [address] Consulting Physician Pulmonary Disease 01/30/22 Yasmin Restrepo MD #[address] [phone] Consulting Physician Endocrinology 07/20/24 Jose Do MD #[address] [address] Consulting Physician Colon and Rectal Surgery 10/12/24 documented as of this encounter
--- OUTSIDE RECORDS SUMMARY | 2024-12-02 13:27 | XMS_ITS | Encounter Summary ---
Author Organization [facility] Address [address] [place] [address] Phone Care Team Providers Care Garnett Feeder Name Role Phone Quang Locke Unavailable [phone] Keith Craft MD Primary Care Provider [phone] Bri Rollins RN Unavailable Unavailable Silvio Schulte MD Unavailable [phone] Bri Rollins RN Unavailable Unavailable Werner Swift MD Unavailable Liz Capellan DO Primary Care Provider [phone] Yasmin Restrepo MD Unavailable Jose Do MD Unavailable Reason for Visit * Reason Onset Date Comments Medication Refill 02/12/2020 alden Encounter Details Date Type Department Care Team (Late st Contact Info) Description 02/12/2020 Refill [facility] - Family Medicine [facility] #2 [place] [address] Keith Craft MD #1 [place] [address] Medication Refill (norco) Social History Tobacco Use [...] a written script)? [facility] [address], [place] 30 or 90 day supply? 30 documented in this encounter Plan of Treatment Upcoming Encounters Date Type Department Care Team (Late st Contact Info) Description 12/04/2024 12:45 PM CDT Office Visit [facility] - Family Medicine - [place] #2 [place] [address] Oehl, Ana N, MACHINE FANCY STITCHER, HOSPITAL ADMISSIONS CLERK 2 [facility] [place]. [address] [place] [address] 12/09/2024 11:15 AM CDT Office Visit [facility] - General Surgery - [place] #2 [facility] [address] [place] [phone] Jose Do MD #2 [facility] [address] [place] [address] 01/04/2025 1:30 PM CDT Office Visit [facility] - Pulmonology & Sleep Medicine - [place] #2 [facility] [address] Werner Swift MD #2 [place] [address] 03/01/2025 1:30 PM CDT Office Visit [facility] - Endocrinology - [place] #2 [place] [address] Yasmin Restrepo MD #[address] [address] 05/13/2025 1:20 PM SOIL CONSERVATION TEACHER Office Visit [facility] - [place] #[address] [place] [address] Liz Capellan, DO [address] [address] documented as of this encounter Visit Diagnoses Not on filedocumented in this encounter Additional Health Concerns Infection Onset Date Last Indicated Resolved Time COVID - 19 01/25/2021 01/25/2021 01/31/2021 8:10 AM CDT Respiratory Rule Out - RPA 01/30/2021 01/30/2021 0 02/01/2021 12:45 AM CDT COVID - 19 07/23/2021 07/23/202107/2407/24/2021 6:31 AM SOIL CONSERVATION TEACHER COVID - 19 10/19/2021 10/19/2021 10/20/2021 7:45 AM CDT Respiratory Rule Out - RPA 10/19/2021 10/19/2021 0 10/20/2021 2:10 PM CDT Stenotrophomonas maltophilia Comment:Must have a follow up respiratory sample to remove isolation/infection flag. 10/20/2021 10/20/2021 COVID - 19 04/20/2022 04/20/2022 04/30/2022 12:1 8 AM SOIL CONSERVATION TEACHER COVID - 19 07/18/2022 07/18/2022 07/28/2022 12:1 6 AM SOIL CONSERVATION TEACHER COVID - 19 08/21/2022 08/21/2022 08/22/2022 8:31 AM CDT Respiratory Rule Out - RPA 08/21/2022 08/21/2022 0 08/22/2022 3:21 PM CDT COVID - 19 04/18/2023 04/18/2023 04/28/2023 12:1 6 AM SOIL CONSERVATION TEACHER COVID - 19 07/13/2023 07/13/2023 07/23/2023 12:1 6 AM SOIL CONSERVATION TEACHER Respiratory Rule Out - RPA 03/17/2024 03/17/2024 1 3:36 PM CDT COVID - 19 04/27/2024 04/27/2024 04/27/2024 2:19 PM SOIL CONSERVATION TEACHER Respiratory Rule-Out 07/24/2024 07/24/2024 025 2:29 PM SOIL CONSERVATION TEACHER COVID - 19 07/24/2024 07/24/2024 07/24/2024 2:29 PM SOIL CONSERVATION TEACHER COVID - 19 08/22/2024 08/22/2024 08/22/2024 11:4 6 PM CDT COVID - 19 09/03/2024 09/03/2024 09/03/2024 12:4 7 PM CDT Assessment Noted Time PHQ-9 Depression Total Score: 1 06/10/19 20 1:03 PM SOIL CONSERVATION TEACHER documented as of this encounter Care Teams Garnett Feeder Relationship Specialty Start Date End Date Keith Craft MD PCP - General Family Medicine 01/14/19 12/26/23 Liz Capellan DO 2 [facility] [address] [place] [address] PCP - General Family Medicine 12/27/23 Quang Locke DO Gastroenterology 01/18/16 Bri Rollins, [place] Plumbing Engineering Draftsperson 03/07/21 05/22/23 [place] [id number] [address] 05/25/21 Bri Rollins, RN [place] Nurse Plumbing Engineering Draftsperson 03/07/21 05/23/23 Werner Swift MD #2 [place] [address] Consulting Physician Pulmonary Disease 01/30/22 Yasmin Restreop MD #[address] [address] Consulting Physician Endocrinology 07/20/24 Jose Do MD #[address] [address] Consulting Physician Colon and Rectal Surgery 10/12/24 documented as of this encounter
--- OUTSIDE RECORDS SUMMARY | 2024-12-02 13:27 | XMS_ITS | Encounter Summary ---
Author Organization [facility] Address [address] [place] [address] Phone Care Team Providers Care Sanforizer Name Role Phone Quang Locke Unavailable [phone] Keith Craft MD Primary Care Provider [phone] Bri Rollins RN Unavailable Unavailable Silvio Schulte MD Unavailable [phone] Bri Rollins RN Unavailable Unavailable Werner Swift MD Unavailable Liz Capellan DO Primary Care Provider [phone] Yasmin Restrepo MD Unavailable Jose Do MD Unavailable Reason for Visit * Reason Comments Medication Refill Encounter Details Date Type Department Care Team (Late st Contact Info) Description 07/14/2020 Refill [facility] - Family Medicine [facility] #2 [place] [address] Keith Craft MD #1 [place] [address] Medication Refill Social History Tobacco Use Types [...] COVID-19? No / Unsure 07/02/2020 2:53 PM LEAD SUSTAINABILITY SPECIALIST documented as of this encounter Miscellaneous [...] Outpatient Visits 1 month ago Mixed hyperlipidemia [facility] Family [facility] Keith Lemus MD 2 months ago Pneumonia of right upper lobe due to infectious organism [facility] Keith Lemus MD 5 months ago Acute non-recurrent maxillary sinusitis [facility] Keith Lemus MD 8 months ago Chronic prescription opiate use [facility] Keith Lemus MD 11 months ago Coronary artery disease involving [place] coronary artery of [place] heart without angina pectoris [facility] Keith Lemus MD Upcoming Appointments Future Appointments In 2 weeks [facility] - [facility] In 2 months Keith Craft MD [facility] METAL CRAFTS TEACHER - Recent and Past Visits Recent Visits Date Type Provider Dept 06/07/20 Office Visit Keith Craft MD [facility] 04/25/20 Office Visit Keith Craft, MD [facility] 02/02/20 Office Visit Keith Craft MD [facility] 11/02/19 Office Visit Keith Craft MD [facility] 07/27/19 Office Visit Keith Craft MD [facility] 06/10/19 Office Visit Brie Denis, [facility] 04/20/19 Office Visit Keith Craft, MD [...] Outpatient Visits 1 month ago Mixed hyperlipidemia [facility] Family [facility] Keith Lemus MD 2 months ago Pneumonia of right upper lobe due to infectious organism [facility] Keith Lemus MD 5 months ago Acute non-recurrent maxillary sinusitis [facility] Keith Laughlin MD 8 months ago Chronic prescription opiate use [facility] Keith Lemus MD 11 months ago Coronary artery disease involving [place] coronary artery of [place] heart without angina pectoris [facility] Keith Lemus MD Upcoming Appointments Future Appointments In 2 weeks [facility] 2ND [facility] CL[facility] Family [facility] - [facility] [place] In 2 months Keith Craft MD [facility] METAL CRAFTS TEACHER - Recent and Past Visits Recent Visits Date Type Provider Dept 06/07/20 Office Visit Keith Craft, MD [facility] 04/25/20 Office Visit Keith Craft, MD [facility] 02/02/20 Office Visit Keith Craft, MD [facility] 11/02/19 Office Visit Keith Craft, MD [facility] 07/27/19 Office Visit Keith Craft MD [facility] 06/10/19 Office Visit Cira Brie Palma, NICOLE [facility] 04/20/19 Office Visit Keith Craft, MD [...] 07/27/2019 14 10 - 20 mcg/mL Final SUSTAINABILITY SPECIALIST * Telephone Encounter - Camila Mehta RN - 07/14/2020 12:40 PM CST Medication approved and signed per standing order protocol. SUSTAINABILITY SPECIALIST documented in this encounter Plan of Treatment Upcoming Encounters Date Type Department Care Team (Late st Contact Info) Description 12/04/2024 12:45 PM CDT Office Visit [facility] #2 [place] [address] Ana Vivar N, ENGINEERING AND DEVELOPMENT DIRECTOR, FRUIT PEELER 2 [facility] [address] [place] [address] 12/09/2024 11:15 AM CDT Office Visit [facility] Medical [facility] - General Surgery - [place] #[address] [place] [address] Jose Do MD #[address] [place] [address] 01/04/2025 1:30 PM CDT Office Visit [facility] - Pulmonology & Sleep Medicine - [place] #2 [place] [address] Werner Swift MD #2 [place] [address] 03/01/2025 1:30 PM CDT Office Visit [facility] - Endocrinology - [place] #2 [place] [address] Yasmin Restrepo MD #[address] [place] [address] 05/13/2025 1:20 PM LEAD SUSTAINABILITY SPECIALIST Office Visit [facility] - Family Medicine - [place] #2 [place] [address] Liz Capellan, DO 2 [facility] [address] [place] [address] documented as of this encounter Visit Diagnoses [...] - 19 07/23/2021 07/23/2021 07/24/2021 6:31 AM LEAD SUSTAINABILITY SPECIALIST COVID - 19 10/19/2021 10/19/2021 10/20/2021 7:45 AM CDT Respiratory Rule Out - RPA 10/19/2021 10/19/2021 0 10/20/2021 2:10 PM CDT Stenotrophomonas maltophilia Comment:Must have a follow up respiratory sample to remove isolation/infection flag. 10/20/2021 10/20/2021 COVID - 19 04/20/2022 04/20/2022 04/30/2022 12:1 8 AM LEAD SUSTAINABILITY SPECIALIST COVID - 19 07/18/2022 07/18/2022 07/28/2022 12:1 6 AM LEAD SUSTAINABILITY SPECIALIST COVID - 19 08/21/2022 08/21/2022 08/22/2022 8:31 AM CDT Respiratory Rule Out - RPA 08/21/2022 08/21/2022 0 08/22/2022 3:21 PM CDT COVID - 19 04/18/2023 04/18/2023 04/28/2023 12:1 6 AM LEAD SUSTAINABILITY SPECIALIST COVID - 19 07/13/2023 07/13/2023 07/23/2023 12:1 6 AM LEAD SUSTAINABILITY SPECIALIST Respiratory Rule Out - RPA 03/17/2024 03/17/2024 1 3:36 PM CDT COVID - 19 04/27/2024 04/27/2024 04/27/2024 2:19 PM LEAD SUSTAINABILITY SPECIALIST Respiratory Rule-Out 07/24/2024 07/24/2024 025 2:29 PM LEAD SUSTAINABILITY SPECIALIST COVID - 19 07/24/2024 07/24/2024 07/24/2024 2:29 PM LEAD SUSTAINABILITY SPECIALIST COVID - 19 08/22/2024 08/22/2024 08/22/2024 11:4 6 PM CDT COVID - 19 09/03/2024 09/03/2024 09/03/2024 12:4 7 PM CDT Assessment Noted Time PHQ-9 Depression Total Score: 2 06/07/19 2:34 PM LEAD SUSTAINABILITY SPECIALIST documented as of this encounter Care Teams Sanforizer Relationship Specialty Start Date End Date Keith Craft MD PCP - General Family Medicine 01/14/19 12/26/23 Liz Capellan DO 2 [facility] [address] [place] [address] PCP - General Family Medicine 12/27/23 Quang Locke DO Gastroenterology 01/18/16 Bri Rollins, RN [place] Advertising Sales Associate 03/07/21 05/22/23 [place] [id number] [address] 05/25/21 Bri Rollins, RN [place] Nurse Advertising Sales Associate 03/07/21 05/23/23 Werner Swift MD #2 [place] [address] Consulting Physician Pulmonary Disease 01/30/22 Yasmin Restrepo MD #[address] [address] Consulting Physician Endocrinology 07/20/24 Jose Do MD #[address] [address] Consulting Physician Colon and Rectal Surgery 10/12/24 documented as of this encounter
--- OUTSIDE RECORDS SUMMARY | 2024-12-02 13:27 | XMS_ITS | Encounter Summary ---
Author Organization [facility] Address [address] [place] [address] Phone Care Team Providers Care Fibre Optic Cable Splicer Name Role Phone Quang Locke Oswaldo PRESLEY Unavailable [phone] Silvio Schulte MD Unavailable [phone] Werner Swift MD Unavailable Liz Capellan DO Primary Care Provider Yasmin Restrepo MD Unavailable Jose Do MD Unavailable Reason for Visit * Reason Comments Medication Refill Encounter Details Date Type Department Care Team (Late st Contact Info) Description 09/04/2024 Refill [facility] Med Surg [address] [place] [phone] Keith Craft MD [address] [place] [address] Medication Refill Social History Tobacco Use Types Packs/Day Years Used Date Smoking Tobacco: Former Cigarettes 2 50 1 - 03/16/2018 Smokeless Tobacco: Never Comments:Still uses nictoine patches and gum Alcohol Use Standard Drinks/Week Comments No 0 (1 standard drink = 0.6 oz pur e alcohol) [facility] Utilities Answer Date Recorded In the past 12 months has e electric, gas, oil, or water company threatened to shut off services in your home? Patient unable to answer 08/22/2024 Social Connection and Isolation Panel Answer Date Recorded In a typical week, how many times do you talk on the phone with family, friends, or neighbors? Patient declined 08/22/2024 How often do you get togethe r with friends or relatives? Patient declined 08/22/2024 How often do you attend mandaen or cheondoism serv ices? Patient declined 08/22/2024 Do you belong to any clubs o r organizations such as mandaen groups, unions, fraternal or athletic groups, or school groups? Patient declined 08/22/2024 How often do you attend meet ings of the clubs or organizations you belong to? Patient declined 08/22/2024 Are you , , di vorced, , never , or living with a partner? Patient declined 08/22/2024 AUDIT-C Answer Date Recorded Q1: How often do you have a drink containing alc ohol? Patient declined 08/22/2024 Q2: How many drinks containi ng alcohol do you have on a typical day when you are drinking? Patient declined 08/22/2024 Q3: How often do you have si x or more drinks on one occasion? Patient declined 08/22/2024 Overall Financial Resource Strain (CARDIA) Answe r Date Recorded How hard is it for you to pa y for the very basics like food, housing, medical care, and heating? Patient declined 08/22/2024 PHQ-2 Answer Date Recorded Total Score - Questions 1-9 0 06/27 [facility] of Occupat ional Health - Occupational Stress Questionnaire Answer Date Recorded Do you feel stress - tense, restless, nervous, or anxious, or unable to sleep at night because your mind is troubled all the time - these days? Patient declined 08/22/2024 Exercise Vital Sign Answer Date Recorde d On average, how many days pe r week do you engage in moderate to strenuous exercise (like a brisk walk)? Patient declined On average, how many minutes do you engage in exercise at this level? Patient declined 08/22/2024 Hunger Vital Sign Answer Date Recorded Within the past 12 months, y ou worried that your food would run out before you got the money to buy more. Patient unable to answer 08/22/2024 Within the past 12 months, t he food you bought just didn't last and you didn't have money to get more. Patient unable to answer 08/22/2024 PRAPARE - Transportation Answer Date Re corded In the past 12 months, has l ack of transportation kept you from medical appointments or from getting medications? Patient unable to answer 08/22/2024 In the past 12 months, has l ack of transportation kept you from meetings, work, or from getting things needed for daily living? Patient unable to answer 08/22/2024 Housing Stability Vital Sign Answer Richar e [...] a care home (including now)? No 07/13/2023 Housing Stability Vital Sign Answer Richar e Recorded In the last 12 months, was t here a time when you were not able to pay the mortgage or rent on time? Patient unable to answer 08/22/2024 In the past 12 months, how m any times have you moved where you were living? 0 08/22/2024 At any time in the past 12 m [facility], were you homeless or living in a care home (including now)? Patient unable to answer 08/22/2024 Education Answer Date Recorded What is the [...] Telephone Encounter - Emily Jesus RN - 09/04/2024 1:48 PM CDT Refill not appropriate. This medication was not prescribed by Dr. Swift. Per sig of medication, patient was only to take for 5 days * Telephone Encounter - Gloria Cornejo RN - 09/04/2024 1:00 PM CDT Images from the original note were not included. predniSONE Dispensed Days Supply Quantity Provider Pharmacy PREDNISONE 10 MG TABLET 09/02/2024 60 30 Tablet Werner Swift MD [facility] Bet... PREDNISONE 50 MG TABLET 08/24/2024 1 5 Tablet Laurent Kumar MD [facility] Bet... PREDNISONE 20 MG TABLET 08/17/2024 4 4 Tablet Charlie Saunders APRN, NEEDLE PROCESS FELT GOODS SUPERVISOR [facility] Bet... PREDNISONE 10 MG TABLET 07/07/2024 60 30 Tablet Werner Swift MD [facility] Bet... documented in this encounter Plan of Treatment Upcoming Encounters Date Type Department Care Team (Late st Contact Info) Description 12/04/2024 12:45 PM CDT Office Visit [facility] - Family Medicine - [place] [address] [place] [address] Ana Vivar, REBECCA, NEEDLE PROCESS FELT GOODS SUPERVISOR [address] [address] 12/09/2024 11:15 AM CDT Office Visit [facility] - General Surgery - [place] [address] [phone] Jose Do MD [address] [address] 01/04/2025 1:30 PM CDT Office Visit [facility] - Pulmonology & Sleep Medicine - [place] [address] [place] [address] Werner Swift MD [address] [place] [address] 03/01/2025 1:30 PM CDT Office Visit [facility] - Endocrinology - [place] [address] [place] [address] Yasmin Restrepo MD [address]2 [facility] [address] [place] [address] 05/13/2025 1:20 PM MACHINE DESIGN CHECKER Office Visit [facility] Family Medicine - [place] [address] [place] [address] Liz Capellan, DO 2 [facility]. [address] [place] [address] documented as of this encounter Goals Goal [...] Zones/Action plan education. I will notify my Panel Coverer if my symptoms fall in the y [...] Total Score: 0 07/13/19 25 1:20 PM MACHINE DESIGN CHECKER documented as of this encounter Care Teams Fibre Optic Cable Splicer Relationship Specialty Start Date End Date Liz Capellan DO [address] [address] PCP - General Family Medicine 12/27/23 Quang Locke DO Gastroenterology 01/18/16 [place] [id number] [address] 05/25/21 Werner Swift MD [address] [place] [id number] Consulting Physician Pulmonary Disease 01/30/22 Yasmin Restrepo MD #[address] [phone] Consulting Physician Endocrinology 07/20/24 Jose Do MD #[address] [place] [address] Consulting Physician Colon and Rectal Surgery 10/12/24 documented as of this encounter
[2024-12-02 13:28] VITALS: BP 92/61; PULSE 70; RESP 18; TEMP 36.6; O2SAT 98
--- NOTE | 2024-12-02 13:46 | ED.URI ---
HPI - URI/Sore Throat General Chief Complaint: Upper Respiratory Infection Stated Complaint: Headache,Nausea,Cough Time Seen by Provider: 12/02/24 13:46 Source: patient and RN notes reviewed Mode of arrival: ambulatory Limitations: no limitations History of Present Illness HPI Narrative: 74-year-old female with history of COPD presents with concern for cough, sore throat. She reports symptoms for several days, she also reports headache. She reports history of becoming septic with pneumonia quickly when the symptoms started. She reports chills, denies fever. MD elicited complaint: cough Related Data Home Medications ?Medication ?Instructions ?Recorded ?Confirmed ?Last Taken ?Type albuterol sulfate 2.5 mg/3 mL 2.5 mg inhalation DIRECTED 12/22/19 04/24/24 Unknown History (0.083 %) solution for nebulization albuterol sulfate 90 mcg/actuation 2 inh inhalation DIRECTED 12/22/19 04/24/24 Unknown History aerosol inhaler (Ventolin HFA) aspirin 81 mg tablet,delayed 81 mg PO DAILY 12/22/19 04/24/24 Unknown History release carvedilol 3.125 mg tablet 3.125 mg PO DAILY 12/22/19 04/24/24 Unknown History cyanocobalamin (vitamin B-12) 1,000 mcg PO DAILY 12/22/19 04/24/24 Unknown History 1,000 mcg tablet,extended release ivabradine 5 mg tablet (Corlanor) 5 mg PO DAILY 12/22/19 04/24/24 Unknown History rosuvastatin 5 mg tablet 5 mg PO DAILY 12/22/19 04/24/24 Unknown History sitagliptin phosphate 100 mg 100 mg PO DAILY 12/22/19 04/24/24 Unknown History tablet (Januvia) linagliptin 5 mg tablet (Tradjenta) 5 mg PO DAILY 12/15/23 04/24/24 Unknown History gabapentin 800 mg tablet 800 mg PO TID 04/24/24 04/24/24 Unknown History diazepam 5 mg tablet mg 07/10/24 Unknown History Imitrex 12/02/24 Unknown History dulaglutide 1.5 mg/0.5 mL mg subcut 12/02/24 Unknown History subcutaneous pen injector (Trulicity) famotidine 20 mg tablet mg 12/02/24 Unknown History insulin glargine 100 unit/mL (3 unit subcut 12/02/24 Unknown History mL) subcutaneous pen (Basaglar KwikPen U-100 Insulin) spironolactone 25 mg tablet mg 12/02/24 Unknown History Allergies Allergy/AdvReac Type Severity Reaction Status Date / Time Penicillins Allergy Swelling Verified 12/02/24 13:17 of Lip/Tongue/Throat Review of Systems Review of Systems: CONSTITUTIONAL: Denies malaise, sweats, or fever. Reports chills EYES: Denies visual changes, redness, or discharge. ENT: Reports rhinorrhea, congestion, sinus pain, otalgia and sore throat. CARDIOVASCULAR: Denies chest pain, palpitations, or edema. RESPIRATORY: Reports cough. Denies dyspnea. GASTROINTESTINAL: Denies abdominal pain, vomiting, diarrhea. Reports nausea SKIN: Denies rash or itching. MUSCULOSKELETAL: Denies myalgia. NEUROLOGIC: Reports headache. All systems reviewed & are unremarkable except as noted in HPI and below PMFSH Past Medical History Medical History Diabetes Hyperlipidemia Hypertension Pacemaker COPD (chronic obstructive pulmonary disease) CHF (congestive heart failure) Surgical History Surgical History History of hysterectomy History of foot surgery History of surgery on wrist History of back surgery Family History Family History Mother Family history non-contributory Other Heart disease Hypertension Social History Social History Smoking status: Former smoker Alcohol intake: current Substance use: never Living arrangements: alone Gender identity (if verbalized by the patient): Female Sexual Orientation (if Verbalized by the Patient): Straight or Heterosexual Spiritual care concerns: No Comments At time of signature, agree with nursing past medical, surgical, social and family history. There is no relevant family history pertinent to the presenting complaint Exam Narrative: GENERAL: Well-appearing, well-nourished, and in no acute distress. HEAD: Normocephalic EYES: PERRLA, conjunctivae clear ENT: Nares clear. Mucous membranes moist. TM pearly pendleton with sharp light reflex bilaterally; no tragal tenderness. Oropharynx not erythematous without lesions. Tonsils not enlarged and without exudate, no drooling, no hoarseness, no trismus, uvula midline. NECK: Supple. No lymphadenopathy CHEST: Clear to auscultation, breath sounds equal. No wheezing, rhonchi, rales, or stridor. No respiratory distress, speaks in full sentences. HEART: Regular rate and rhythm. No murmur heard. SKIN: Warm, dry, no rash. NEURO: Alert and oriented x3. PSYCH: Normal mood and affect Course Course Emergency Course: Patient is aware of diagnosis, understands and agrees to treatment plan. Anticipatory guidance given. Patient agrees to follow-up as directed and is aware of reasons to seek care at the emergency department. Portions of this record may have been created with voice recognition software Level of Care: Express Care Visit Vital Signs Vital signs: Vital Signs Temperature 97.9 F 12/02/24 13:28 Pulse Rate 70 12/02/24 13:28 Respiratory Rate 18 12/02/24 13:28 Blood Pressure 92/61 L 12/02/24 13:28 Pulse Oximetry 98 12/02/24 13:28 Oxygen Delivery Room Air 12/02/24 13:28 Temperature 97.9 F 12/02/24 13:28 Pulse Rate 70 12/02/24 13:28 Respiratory Rate 18 12/02/24 13:28 Blood Pressure 92/61 L 12/02/24 13:28 Pulse Oximetry 98 12/02/24 13:28 Oxygen Delivery Room Air 12/02/24 13:28 Reviewed. MDM - URI/Sore Throat MDM Narrative Medical decision making narrative: Differential diagnosis considered: Martin virus, strep pharyngitis, allergic rhinitis, upper respiratory tract infection, sinusitis, rhinosinusitis, nasopharyngitis. viral pharyngitis, otitis media, otitis externa, pneumonia, bronchitis, viral cough syndrome, viral syndrome, and influenza. Exam findings show no acute concerns or changes; patient is non-toxic appearing and is in no distress. Patient is appropriate for outpatient treatment and follow-up. Lab Data Attestation: I reviewed the patient's lab results. Critical Care Time Critical Care Time Critical Care Time: No Discharge Plan Discharge Clinical Impression: Acute exacerbation of chronic obstructive pulmonary disease Patient Disposition: Home Condition: Stable Instructions: Antibiotic Form, COPD (Chronic Obstructive Pulmonary Disease) (ED) Additional Instructions: 1) Please follow-up with your primary care doctor in the next 1-2 days. 2) If you have any worsening of symptoms or any other urgent concerns please go to the ER. 3) Please take medications as prescribed and continue taking your home medications as usual. 4) Please read and follow information included in discharge instructions. Patient Language: French Prescriptions: New doxycycline monohydrate 100 mg tablet 100 mg PO BID 7 Days Qty: 14 0RF methylprednisolone [Medrol (Shakeel)] 4 mg tablets,dose pack See Rx Instructions .ROUTE .COMPLEX Qty: 21 0RF Rx Instructions: orally per package directions No Action Tradjenta 5 mg tablet 5 mg PO DAILY cyanocobalamin (vitamin B-12) 1,000 mcg tablet extended release 1,000 mcg PO DAILY albuterol sulfate 2.5 mg /3 mL (0.083 %) solution for nebulization 2.5 mg inhalation DIRECTED Rx Instructions: as prescribed aspirin 81 mg tablet,delayed release (DR/EC) 81 mg PO DAILY carvedilol 3.125 mg tablet 3.125 mg PO DAILY albuterol sulfate [Ventolin HFA] 90 mcg/actuation HFA aerosol inhaler 2 inh INHALATION DIRECTED rosuvastatin 5 mg tablet 5 mg PO DAILY Januvia 100 mg tablet 100 mg PO DAILY ivabradine [Corlanor] 5 mg tablet 5 mg PO DAILY gabapentin 800 mg Tablet 800 mg PO TID diazepam 5 mg tablet spironolactone 25 mg tablet famotidine 20 mg tablet insulin glargine [Basaglar KwikPen U-100 Insulin] 100 unit/mL (3 mL) insulin pen SUBCUT Trulicity 1.5 mg/0.5 mL pen injector SUBCUT Imitrex Follow-up/Referrals: Marilia,Liz Price DO [Primary Care Provider] - Time of Disposition: 14:00
== END 2024-12-02 14:07 | disposition home or self-care (01) ==
PROVIDERS: Emergency Provider Nurse Practitioner; PCP Student in an Organized Health Care Education/Training Program
DX: J44.1 Chronic obstructive pulmonary disease with (acute) exacerbation (principal); I11.0 Hypertensive heart disease with heart failure; I50.9 Heart failure, unspecified; E11.9 Type 2 diabetes mellitus without complications; Z79.4 Long term (current) use of insulin; Z79.84 Long term (current) use of oral hypoglycemic drugs; E78.5 Hyperlipidemia, unspecified; Z95.0 Presence of cardiac pacemaker; Z79.82 Long term (current) use of aspirin; Z87.891 Personal history of nicotine dependence
CPT/HCPCS: 99213; G0463

== ENCOUNTER 2025-02-14 12:17 | Emergency (ER) | payer OTHER, SELFPAY ==
--- NOTE | ~2025-02-14 | XR_ITS ---
Examination: XR chest 2V Clinical History: cough Comparison: 08/16/2024 Technique: PA and Lateral Findings: Left ICD. Cardiomediastinal silhouette normal size and configuration. Chronic hyperinflation and interstitial markings. No focal airspace disease. No acute bony abnormality. Osteopenia, with multilevel thoracic vertebral body height loss. IMPRESSION: 1. No acute cardiopulmonary findings. Reviewed, dictated and finalized at location R.
--- OUTSIDE RECORDS SUMMARY | 2025-02-14 12:19 | XMS_ITS | Clinical Summary ---
Author Organization [facility] Address [address] [place] [address] Care Team Providers Care Organ Installer Name Role Phone Unavailable Primary Care Provider Unavailabl e Source Comments [facility],non-owned Affiliates and Associated Physician Practices is amultiple site organization consisting of ambulatory clinics and hospital sitesin [place], [place], [place] and [place]. This disclosure is being madepursuant to the Care Everywhere program and may not contain all information available regarding this patient. 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
[2025-02-14 12:26] VITALS: BP 85/48; PULSE 68; RESP 20; TEMP 36.5; O2SAT 100
--- NOTE | 2025-02-14 12:47 | ED.GENADULT ---
HPI - General Adult General Chief complaint: Upper Respiratory Infection Stated complaint: cough for over a month Source: patient Mode of arrival: ambulatory Limitations: no limitations History of Present Illness HPI narrative: Pt presents for evaluation of cough for the past month. Cough is productive of yellow/ brown sputum. She has associated SOB and nausea. No fever, chills, vomiting or diarrhea. No specific sick contacts. She does not smoke. She has an underlying history of asthma and COPD. Her customer support advisor is Dr. Swift at [facility]. She is currently on prednisone 10mg daily, which sounds to be a regular long-term medication for her. However it sounds like her 10mg dose is rather new, up from 5mg before. She has a cough medication with codeine that she has been taking as well. Related Data Home Medications ?Medication ?Instructions ?Recorded ?Confirmed ?Last Taken ?Type albuterol sulfate 2.5 mg/3 mL 2.5 mg inhalation DIRECTED 12/22/19 04/24/24 Unknown History (0.083 %) solution for nebulization albuterol sulfate 90 mcg/actuation 2 inh inhalation DIRECTED 12/22/19 04/24/24 Unknown History aerosol inhaler (Ventolin HFA) aspirin 81 mg tablet,delayed 81 mg PO DAILY 12/22/19 04/24/24 Unknown History release carvedilol 3.125 mg tablet 3.125 mg PO DAILY 12/22/19 04/24/24 Unknown History cyanocobalamin (vitamin B-12) 1,000 mcg PO DAILY 12/22/19 04/24/24 Unknown History 1,000 mcg tablet,extended release ivabradine 5 mg tablet (Corlanor) 5 mg PO DAILY 12/22/19 04/24/24 Unknown History rosuvastatin 5 mg tablet 5 mg PO DAILY 12/22/19 04/24/24 Unknown History sitagliptin phosphate 100 mg 100 mg PO DAILY 12/22/19 04/24/24 Unknown History tablet (Januvia) linagliptin 5 mg tablet (Tradjenta) 5 mg PO DAILY 12/15/23 04/24/24 Unknown History gabapentin 800 mg tablet 800 mg PO TID 04/24/24 04/24/24 Unknown History diazepam 5 mg tablet mg 07/10/24 Unknown History Imitrex 12/02/24 Unknown History dulaglutide 1.5 mg/0.5 mL mg subcut 12/02/24 Unknown History subcutaneous pen injector (Trulicity) famotidine 20 mg tablet mg 12/02/24 Unknown History insulin glargine 100 unit/mL (3 unit subcut 12/02/24 Unknown History mL) subcutaneous pen (Basaglar KwikPen U-100 Insulin) spironolactone 25 mg tablet mg 12/02/24 Unknown History escitalopram oxalate 20 mg tablet mg 02/14/25 Unknown History furosemide 20 mg tablet mg 02/14/25 Unknown History guaifenesin 600 mg tablet, mg PO 02/14/25 Unknown History extended release 12 hr oxycodone-acetaminophen 10 mg-325 tablet 02/14/25 Unknown History mg tablet prednisone 10 mg tablet mg 02/14/25 Unknown History Allergies Allergy/AdvReac Type Severity Reaction Status Date / Time Penicillins Allergy Swelling Verified 02/14/25 12:31 of Lip/Tongue/Throat Review of Systems Review of Systems: CONSTITUTIONAL: Denies fever, chills, or sweats. EYES: Denies visual changes, redness, or discharge. ENT: Denies rhinorrhea, congestion, sore throat, or otalgia. CARDIOVASCULAR: Denies chest pain, palpitations, or edema. RESPIRATORY: Reports cough and SOB GASTROINTESTINAL: Reports nausea. Denies abdominal pain, vomiting, or diarrhea. GENITOURINARY: Denies dysuria or hematuria. SKIN: Denies rash or itching. MUSCULOSKELETAL: Denies back pain, joint pain, or myalgia. NEUROLOGIC: Denies headache, numbness, dizziness, or weakness. PSYCHIATRIC: Denies anxiety or depression. [facility] Past Medical History Medical History Diabetes Hyperlipidemia Hypertension Pacemaker COPD (chronic obstructive pulmonary disease) CHF (congestive heart failure) Surgical History Surgical History History of hysterectomy History of foot surgery History of surgery on wrist History of back surgery Family History Family History Mother Family history non-contributory Other Heart disease Hypertension Social History Social History Smoking status: Former smoker Alcohol intake: current Substance use: never Living arrangements: alone Gender identity (if verbalized by the patient): Female Sexual Orientation (if Verbalized by the Patient): Straight or Heterosexual Spiritual care concerns: No Exam Narrative: GENERAL: Well-appearing, well-nourished, and in no acute distress. HEAD: Normocephalic, atraumatic. EYES: PERRLA and EOMI. ENT: Nares clear, no rhinorrhea or epistaxis. Mucous membranes moist. Oropharynx without tonsillar hypertrophy exudate or other lesions. Bilateral TMs pearly pendleton nonbulging NECK: Supple. No adenopathy or masses. No carotid bruits or JVD CHEST: Wheezing and rales noted bilaterally. Cough present on exam. HEART: Regular rate and rhythm. No murmur heard. Normal peripheral pulses. ABDOMEN: Soft, nontender, nondistended, normal active bowel sounds. EXTREMITIES: Normal range of motion. No edema. SKIN: Warm, dry, no rash. NEURO: No focal deficits. Alert and oriented x3. PSYCH: Normal mood and affect. Course Course Emergency Course: This is a 74-year-old female who presented for evaluation of a cough that she has experienced for the past month. Chest x-ray negative. Exam is consistent with COPD exacerbation. Will discharge with prednisone and doxycycline. She is advised to call her customer support advisor tomorrow for a follow-up appointment and to determine whether she needs to taper off prednisone 50 mg in back noted 10 mg or whether she can do an abrupt dose change. She should follow up with primary care and go to the ER for worsening symptoms. Pt in agreement with plan of care. Level of Care: Express Care Visit Vital Signs Vital signs: Vital Signs Temperature 36.5 C 02/14/25 12: Pulse Rate 68 02/14/25 12: Respiratory Rate 20 02/14/25 12: Blood Pressure 85/48 L 02/14/25 12:26 Pulse Oximetry 100 02/14/25 12:26 Oxygen Delivery Room Air 02/14/25 12: Temperature 36.5 C 02/14/25 12: Pulse Rate 68 02/14/25 12: Respiratory Rate 20 02/14/25 12:26 Blood Pressure 85/48 L 02/14/25 12:26 Pulse Oximetry 100 02/14/25 12:26 Oxygen Delivery Room Air 02/14/25 12:26 Medical Decision Making Vital Signs Vital Signs: Vital Signs Temperature 36.5 C 02/14/25 12:26 Pulse Rate 68 02/14/25 12:26 Respiratory Rate 02/14/25 12:26 Blood Pressure 85/48 L 02/14/25 12:26 Pulse Oximetry 100 02/14/25 12:26 Oxygen Delivery Room Air 02/14/25 12:26 Temperature 36.5 C 02/14/25 12:26 Pulse Rate 68 02/14/25 12:26 Respiratory Rate 02/14/25 12:26 Blood Pressure 85/48 L 02/14/25 12:26 Pulse Oximetry 100 02/14/25 12:26 Oxygen Delivery Room Air 02/14/25 12:26 Imaging Data Radiologist's impression: Examination: XR chest 2V Clinical History: cough Comparison: 08/16/2024 Technique: PA and Lateral Findings: Left ICD. Cardiomediastinal silhouette normal size and configuration. Chronic hyperinflation and interstitial markings. No focal airspace disease. No acute bony abnormality. Osteopenia, with multilevel thoracic vertebral body height loss. IMPRESSION: 1. No acute cardiopulmonary findings. Discharge Plan Discharge Clinical Impression: Asthma exacerbation in COPD Patient Disposition: Home Condition: Stable Instructions: Antibiotic Form, COPD (Chronic Obstructive Pulmonary Disease) (DC) Patient Language: Telugu Prescriptions: New prednisone 50 mg tablet 50 mg PO DAILY Qty: 5 0RF doxycycline hyclate 100 mg capsule 100 mg PO BID Qty: 20 0RF No Action Tradjenta 5 mg tablet 5 mg PO DAILY cyanocobalamin (vitamin B-12) 1,000 mcg tablet extended release 1,000 mcg PO DAILY albuterol sulfate 2.5 mg /3 mL (0.083 %) solution for nebulization 2.5 mg inhalation DIRECTED Rx Instructions: as prescribed aspirin 81 mg tablet,delayed release (DR/EC) 81 mg PO DAILY carvedilol 3.125 mg tablet 3.125 mg PO DAILY albuterol sulfate [Ventolin HFA] 90 mcg/actuation HFA aerosol inhaler 2 inh INHALATION DIRECTED rosuvastatin 5 mg tablet 5 mg PO DAILY Januvia 100 mg tablet 100 mg PO DAILY ivabradine [Corlanor] 5 mg tablet 5 mg PO DAILY gabapentin 800 mg Tablet 800 mg PO TID diazepam 5 mg tablet spironolactone 25 mg tablet famotidine 20 mg tablet insulin glargine [Basaglar KwikPen U-100 Insulin] 100 unit/mL (3 mL) insulin pen SUBCUT Trulicity 1.5 mg/0.5 mL pen injector SUBCUT Imitrex prednisone 10 mg tablet oxycodone-acetaminophen 10-325 mg tablet furosemide 20 mg tablet escitalopram oxalate 20 mg tablet guaifenesin 600 mg tablet extended release 12hr PO Follow-up/Referrals: Dr Deo [Other] Time of Disposition: 13:21
== END 2025-02-14 13:26 | disposition home or self-care (01) ==
PROVIDERS: Emergency Provider Nurse Practitioner
DX: J45.901 Unspecified asthma with (acute) exacerbation (principal); J44.9 Chronic obstructive pulmonary disease, unspecified; E11.9 Type 2 diabetes mellitus without complications; Z79.4 Long term (current) use of insulin; Z79.85 Long-term (current) use of injectable non-insulin antidiabetic drugs; I11.0 Hypertensive heart disease with heart failure; I50.9 Heart failure, unspecified; Z95.0 Presence of cardiac pacemaker; E78.5 Hyperlipidemia, unspecified; Z79.82 Long term (current) use of aspirin
CPT/HCPCS: 71046; 99213; G0463

== ENCOUNTER 2025-03-16 13:29 | Emergency (ER) | payer OTHER, SELFPAY ==
--- NOTE | ~2025-03-16 | XR_ITS ---
EXAMINATION: XR chest 2V, 03/16/2025 14:00 CDT HISTORY: HX of pneumonia. COPD. Some SOB. Cough COMPARISON: No comparisons available. Technique: 2 views obtained. Findings: The lungs are clear, no effusion. No pneumothorax. Heart is normal size. Mediastinal and hilar contours are within normal limits. Bony thorax no acute abnormality. Left pacemaker. Impression: No acute cardiopulmonary abnormality. Reviewed, dictated and finalized at location P. Impression: No acute cardiopulmonary abnormality.
--- NOTE | ~2025-03-16 | XR_ITS ---
XR hip BI 2V w AP pelvis 03/16/2025 16:00 Indication: Status post fall. Procedure: AP pelvis and 2 views each hip Comparison: No prior studies for comparison. Findings: Pelvic rings intact. Sclerotic lesion right pubis, likely bone island. There is a right total hip arthroplasty. There is a dynamic compression screw in the left femoral neck with intramedullary sonya. There is lower lumbar spondylosis. Osteopenia. No acute fracture or traumatic malalignment. There is osteoarthritis of the left hip. Impression: 1: No acute fracture. Reviewed, dictated and finalized at location O. Impression: 1: No acute fracture.
[2025-03-16 13:41] VITALS: BP 84/45; PULSE 70; RESP 18; TEMP 36.2; O2SAT 95
--- NOTE | 2025-03-16 14:57 | ED.GENADULT ---
HPI - General Adult General Chief complaint: Upper Respiratory Infection Stated complaint: pnuemonia check up Source: patient Mode of arrival: ambulatory Limitations: no limitations History of Present Illness HPI narrative: Patient presents for evaluation of cough and shortness of breath. She has an underlying history of COPD. I saw her here on 02/14/2025 and prescribed prednisone and doxycycline. She indicates she took the medication as directed. She went to [facility] ER about two weeks later and received what sounds to be cefdinir. She is currently taking medication. She is concerned about a small residual cough, wheezing, and shortness of breath. No fever, vomiting, diarrhea. She has an appointment with her spout positioner, Dr. Swift, on 04/26/25. Related Data Home Medications ?Medication ?Instructions ?Recorded ?Confirmed ?Last Taken ?Type albuterol sulfate 2.5 mg/3 mL 2.5 mg inhalation DIRECTED 12/22/19 04/24/24 Unknown History (0.083 %) solution for nebulization albuterol sulfate 90 mcg/actuation 2 inh inhalation DIRECTED 12/22/19 04/24/24 Unknown History aerosol inhaler (Ventolin HFA) aspirin 81 mg tablet,delayed 81 mg PO DAILY 12/22/19 04/24/24 Unknown History release carvedilol 3.125 mg tablet 3.125 mg PO DAILY 12/22/19 03/16/25 Unknown History cyanocobalamin (vitamin B-12) 1,000 mcg PO DAILY 12/22/19 04/24/24 Unknown History 1,000 mcg tablet,extended release ivabradine 5 mg tablet (Corlanor) 5 mg PO DAILY 12/22/19 03/16/25 Unknown History rosuvastatin 5 mg tablet 5 mg PO DAILY 12/22/19 04/24/24 Unknown History sitagliptin phosphate 100 mg 100 mg PO DAILY 12/22/19 04/24/24 Unknown History tablet (Januvia) linagliptin 5 mg tablet (Tradjenta) 5 mg PO DAILY 12/15/23 04/24/24 Unknown History gabapentin 800 mg tablet 800 mg PO TID 04/24/24 03/16/25 Unknown History diazepam 5 mg tablet mg 07/10/24 Unknown History Imitrex 12/02/24 Unknown History dulaglutide 1.5 mg/0.5 mL mg subcut 12/02/24 Unknown History subcutaneous pen injector (Trulicity) famotidine 20 mg tablet mg 12/02/24 Unknown History insulin glargine 100 unit/mL (3 unit subcut 12/02/24 Unknown History mL) subcutaneous pen (Basaglar KwikPen U-100 Insulin) spironolactone 25 mg tablet mg 12/02/24 Unknown History escitalopram oxalate 20 mg tablet mg 02/14/25 Unknown History furosemide 20 mg tablet mg 02/14/25 Unknown History guaifenesin 600 mg tablet, mg PO 02/14/25 Unknown History extended release 12 hr oxycodone-acetaminophen 10 mg-325 tablet 02/14/25 Unknown History mg tablet prednisone 10 mg tablet mg 02/14/25 Unknown History amitriptyline 50 mg tablet mg 03/16/25 Unknown History cefdinir 300 mg capsule mg 03/16/25 Unknown History empagliflozin 25 mg tablet mg 03/16/25 Unknown History (Jardiance) ferrous sulfate 325 mg (65 mg mg 03/16/25 Unknown History iron) tablet (FeroSul) finerenone 20 mg tablet (Kerendia) mg 03/16/25 Unknown History fluticasone propionate 50 intranasal 03/16/25 Unknown History mcg/actuation nasal spray,suspension icosapent ethyl 1 gram capsule g PO 03/16/25 Unknown History (Vascepa) insulin aspart U-100 100 unit/mL subcut 03/16/25 Unknown History (3 mL) subcutaneous pen omeprazole 40 mg capsule,delayed mg 03/16/25 Unknown History release roflumilast 500 mcg tablet mcg 03/16/25 Unknown History rosuvastatin 20 mg tablet mg 03/16/25 Unknown History sacubitril 24 mg-valsartan 26 mg tablet 03/16/25 Unknown History tablet sumatriptan succinate 100 mg tablet mg PO 03/16/25 Unknown History theophylline 300 mg mg PO 03/16/25 Unknown History tablet,extended release,12 hr valacyclovir 500 mg tablet mg 03/16/25 Unknown History Allergies Allergy/AdvReac Type Severity Reaction Status Date / Time Penicillins Allergy Swelling Verified 03/16/25 13:38 of Lip/Tongue/Throat Review of Systems Review of Systems: CONSTITUTIONAL: Denies fever, chills, or sweats. EYES: Denies visual changes, redness, or discharge. ENT: Denies rhinorrhea, congestion, sore throat, or otalgia. CARDIOVASCULAR: Denies chest pain, palpitations, or edema. RESPIRATORY: Reports cough, wheezing, shortness of breath GASTROINTESTINAL: Denies abdominal pain, nausea, vomiting, or diarrhea. GENITOURINARY: Denies dysuria or hematuria. SKIN: Denies rash or itching. MUSCULOSKELETAL: Denies back pain, joint pain, or myalgia. NEUROLOGIC: Denies headache, numbness, dizziness, or weakness. PSYCHIATRIC: Denies anxiety or depression. [facility] Past Medical History Medical History Diabetes Hyperlipidemia Hypertension Pacemaker COPD (chronic obstructive pulmonary disease) CHF (congestive heart failure) Surgical History Surgical History History of hysterectomy History of foot surgery History of surgery on wrist History of back surgery Family History Family History Mother Family history non-contributory Other Heart disease Hypertension Social History Social History Smoking status: Former smoker Alcohol intake: current Substance use: never Living arrangements: alone Gender identity (if verbalized by the patient): Female Sexual Orientation (if Verbalized by the Patient): Straight or Heterosexual Spiritual care concerns: No Exam Narrative: GENERAL: Well-appearing, well-nourished, and in no acute distress. HEAD: Normocephalic, atraumatic. EYES: PERRLA and EOMI. ENT: Nares clear, no rhinorrhea or epistaxis. Mucous membranes moist. Oropharynx without tonsillar hypertrophy exudate or other lesions. Bilateral TMs pearly pendleton nonbulging NECK: Supple. No adenopathy or masses. No carotid bruits or JVD CHEST: Wheezing noted in bilateral lung renae. HEART: Regular rate and rhythm. No murmur heard. Normal peripheral pulses. ABDOMEN: Soft, nontender, nondistended, normal active bowel sounds. EXTREMITIES: Normal range of motion. No edema. SKIN: Warm, dry, no rash. NEURO: No focal deficits. Alert and oriented x3. PSYCH: Normal mood and affect. Course Course Emergency Course: This is a 74-year-old female who presented for evaluation of a cough. Chest x-ray was negative. She has wheezing on exam today. Exam consistent with COPD exacerbation. Will discharge with prednisone. Patient was being discharged and had a ground level mechanical fall. She tripped in the hallway. She had her chin against the ground. No loss of consciousness. She is assisted into wheelchair and transfer to a bed. She reported some minor bilateral hip pain. X-rays of the hips and pelvis were negative. She sustained a superficial laceration to the dorsal aspect of the right hand that was repaired with Dermabond. She tolerated well. She also sustained a chin laceration that was closed with 4 sutures. Advised on wound care. She was ambulatory and steady on her feet. She indicates she felt well enough to go home. BP was rechecked and was 100's over 50's. Pt states this is her normal BP. I recommended she follow-up with her primary care provider. She should go to the emergency department for worsening symptoms. Patient in agreement with plan of care. Level of Care: Express Care Visit Vital Signs Vital signs: Vital Signs Temperature 36.2 C L 03/16/25 13:41 Pulse Rate 70 03/16/25 13:41 Respiratory Rate 18 03/16/25 13:41 Blood Pressure 84/45 L 03/16/25 13:41 Pulse Oximetry 95 03/16/25 13:41 Oxygen Delivery Room Air 03/16/25 13:41 Temperature 36.2 C L 03/16/25 13:41 Pulse Rate 70 03/16/25 17:21 Respiratory Rate 18 03/16/25 13:41 Blood Pressure 104/54 L 03/16/25 17:21 Pulse Oximetry 95 03/16/25 13:41 Oxygen Delivery Room Air 03/16/25 13:41 Procedures Laceration Laceration 1: Date: 03/16/25 Time: 17:09 Site: hand Size (cm): 2.5 Description: flap Depth: simple, single layer Pre-repair: irrigated ====== Skin Level ====== Skin layer closed with: dermabond ====== Subcutaneous Layer ====== ====== Muscle Layer ====== ====== Tendon Layer ====== Laceration 2: Date: 03/16/25 Time: 17:10 Site: face Size (cm): 1.2 Description: flap Depth: simple, single layer Local Anesthetic: lidocaine 1% Amount of anesthesia used (mL): 3 Pre-repair: irrigated ====== Skin Level ====== Skin layer closed with: nylon Size (cm): 6-0 Number of sutures: 4 ====== Subcutaneous Layer ====== ====== Muscle Layer ====== ====== Tendon Layer ====== Medical Decision Making Vital Signs Vital Signs: Vital Signs Temperature 36.2 C L 03/16/25 13:41 Pulse Rate 70 03/16/25 13:41 Respiratory Rate 18 03/16/25 13:41 Blood Pressure 84/45 L 03/16/25 13:41 Pulse Oximetry 95 03/16/25 13:41 Oxygen Delivery Room Air 03/16/25 13:41 Temperature 36.2 C L 03/16/25 13:41 Pulse Rate 70 03/16/25 17:21 Respiratory Rate 18 03/16/25 13:41 Blood Pressure 104/54 L 03/16/25 17:21 Pulse Oximetry 95 03/16/25 13:41 Oxygen Delivery Room Air 03/16/25 13:41 Imaging Data Radiologist's impression: EXAMINATION: XR chest 2V, 03/16/2025 14:00 CDT HISTORY: HX of pneumonia. COPD. Some SOB. Cough COMPARISON: No comparisons available. Technique: 2 views obtained. Findings: The lungs are clear, no effusion. No pneumothorax. Heart is normal size. Mediastinal and hilar contours are within normal limits. Bony thorax no acute abnormality. Left pacemaker. Impression: No acute cardiopulmonary abnormality. XR hip BI 2V w AP pelvis 03/16/2025 16:00 Indication: Status post fall. Procedure: AP pelvis and 2 views each hip Comparison: No prior studies for comparison. Findings: Pelvic rings intact. Sclerotic lesion right pubis, likely bone island. There is a right total hip arthroplasty. There is a dynamic compression screw in the left femoral neck with intramedullary sonya. There is lower lumbar spondylosis. Osteopenia. No acute fracture or traumatic malalignment. There is osteoarthritis of the left hip. Impression: 1: No acute fracture. Discharge Plan Discharge Clinical Impression: COPD exacerbation, Fall, Hand laceration, Chin laceration Patient Disposition: Home Condition: Stable Instructions: Antibiotic Form, Care For Your Stitches (DC), Laceration (ED), COPD (Chronic Obstructive Pulmonary Disease) (ED) Additional Instructions: Wash Chin laceration twice daily with antibacterial soap and water Pat dry Apply neosporin thereafter You will need your sutures removed in 7-10 days Patient Language: Dominican Prescriptions: New prednisone 20 mg tablet See Rx Instructions .ROUTE .COMPLEX Qty: 11 0RF Rx Instructions: 2 tabs po daily x 3 days, then 1 tab po daily x 3 days, then 1/2 tab po daily x 4 days No Action Tradjenta 5 mg tablet 5 mg PO DAILY cyanocobalamin (vitamin B-12) 1,000 mcg tablet extended release 1,000 mcg PO DAILY albuterol sulfate 2.5 mg /3 mL (0.083 %) solution for nebulization 2.5 mg inhalation DIRECTED Rx Instructions: as prescribed aspirin 81 mg tablet,delayed release (DR/EC) 81 mg PO DAILY carvedilol 3.125 mg tablet 3.125 mg PO DAILY albuterol sulfate [Ventolin HFA] 90 mcg/actuation HFA aerosol inhaler 2 inh INHALATION DIRECTED rosuvastatin 5 mg tablet 5 mg PO DAILY Januvia 100 mg tablet 100 mg PO DAILY ivabradine [Corlanor] 5 mg tablet 5 mg PO DAILY gabapentin 800 mg Tablet 800 mg PO TID diazepam 5 mg tablet spironolactone 25 mg tablet famotidine 20 mg tablet insulin glargine [Basaglar KwikPen U-100 Insulin] 100 unit/mL (3 mL) insulin pen SUBCUT Trulicity 1.5 mg/0.5 mL pen injector SUBCUT Imitrex prednisone 10 mg tablet oxycodone-acetaminophen 10-325 mg tablet furosemide 20 mg tablet escitalopram oxalate 20 mg tablet guaifenesin 600 mg tablet extended release 12hr PO prednisone 50 mg tablet 50 mg PO DAILY Qty: 5 0RF doxycycline hyclate 100 mg capsule 100 mg PO BID Qty: 20 0RF sumatriptan succinate 100 mg tablet PO valacyclovir 500 mg tablet omeprazole 40 mg capsule,delayed release(DR/EC) amitriptyline 50 mg tablet theophylline 300 mg tablet extended release 12 hr PO ferrous sulfate [FeroSul] 325 mg (65 mg iron) tablet cefdinir 300 mg capsule fluticasone propionate 50 mcg/actuation spray,suspension INTRANASAL insulin aspart U-100 100 unit/mL (3 mL) insulin pen SUBCUT rosuvastatin 20 mg tablet roflumilast 500 mcg tablet icosapent ethyl [Vascepa] 1 gram capsule PO Jardiance 25 mg tablet sacubitril-valsartan 24-26 mg tablet Kerendia 20 mg tablet Follow-up/Referrals: Marilia,Liz Price DO [Primary Care Provider, Unknown] Time of Disposition: 14:56
--- NOTE | 2025-03-16 16:08 | PC.NURSE ---
PT WAS DISCHARGED, DISCHARGE PAPERS SIGNED. PT WAS WALKING DOWN HALLWAY WITH HER FRIEND AND 4 PRONG WALKER. SHE STOPPED TO TURN AROUND AND TALK TO HER FRIEND AND SHE FELL ONTO FLOOR HITTING HER CHIN AND RECEIVING A 1 CM SKIN TEAR TO TOP OF RIGHT HAND. PT WAS ALERT AND ORIENTED. PT DID NOT HIT HEAD. PT WAS HELPED UP INTO WHEELCHAIR AND TAKEN TO ROOM 1 FOR A FULL BODY ASSESSMENT PT PUT ONTO STRETCHER GUARD RAILS UP. WOUNDS CLEANED. SKIN GLUE APPLIED TO RIGHT HAND AND SUTURES APPLIED TO BOTTOM OF CHIN. X RAYS PERFORMED ON BILATERAL HIPS AND PELVIS, ALL WHICH WERE ALL NEGATIVE.
[2025-03-16 17:21] VITALS: BP 104/54; PULSE 70
== END 2025-03-16 17:21 | disposition home or self-care (01) ==
PROVIDERS: Emergency Provider Nurse Practitioner; PCP Student in an Organized Health Care Education/Training Program
DX: J44.1 Chronic obstructive pulmonary disease with (acute) exacerbation (principal); S61.411A Laceration without foreign body of right hand, initial encounter; S01.81XA Laceration without foreign body of other part of head, initial encounter; E78.5 Hyperlipidemia, unspecified; J44.9 Chronic obstructive pulmonary disease, unspecified; I11.0 Hypertensive heart disease with heart failure; I50.9 Heart failure, unspecified; E11.9 Type 2 diabetes mellitus without complications; Z87.891 Personal history of nicotine dependence; Z79.899 Other long term (current) drug therapy; W18.30XA Fall on same level, unspecified, initial encounter; Y92.238 Other place in hospital as the place of occurrence of the external cause
CPT/HCPCS: 12011; 12001; 71046; 73521; 99214; G0463; J2003

== ENCOUNTER 2025-03-23 13:03 | Emergency (ER) | payer OTHER, SELFPAY ==
[2025-03-23 13:14] VITALS: BP 98/50; PULSE 72; RESP 14; TEMP 36.6; O2SAT 96
--- NOTE | 2025-03-23 13:17 | ED.WOUNDLAC ---
HPI - Wound/Laceration General Chief Complaint: Wound/Laceration Stated Complaint: Suture Removal Time Seen by Provider: 03/23/25 13:17 Source: patient and RN notes reviewed Mode of arrival: ambulatory Limitations: no limitations History of Present Illness HPI narrative: Patient here for suture removal, she had in place 7 days ago to her chin after fall at the [facility]. Patient denies any concerns of infection. Patient is also treated for COPD exacerbation. Patient is finishing prednisone however reports stopping symptoms. She reports having congestion, sinus pressure, nasal drainage, cough, and wheezing. Patient denies any chest pain, difficulty breathing, nausea vomiting, diarrhea, fevers, body aches chills or any other symptoms. Related Data Home Medications ?Medication ?Instructions ?Recorded ?Confirmed ?Last Taken ?Type albuterol sulfate 2.5 mg/3 mL 2.5 mg inhalation DIRECTED 12/22/19 03/23/25 Unknown History (0.083 %) solution for nebulization albuterol sulfate 90 mcg/actuation 2 inh inhalation DIRECTED 12/22/19 03/23/25 Unknown History aerosol inhaler (Ventolin HFA) aspirin 81 mg tablet,delayed 81 mg PO DAILY 12/22/19 03/23/25 Unknown History release carvedilol 3.125 mg tablet 3.125 mg PO DAILY 12/22/19 03/23/25 Unknown History cyanocobalamin (vitamin B-12) 1,000 mcg PO DAILY 12/22/19 03/23/25 Unknown History 1,000 mcg tablet,extended release ivabradine 5 mg tablet (Corlanor) 5 mg PO DAILY 12/22/19 03/23/25 Unknown History rosuvastatin 5 mg tablet 5 mg PO DAILY 12/22/19 03/23/25 Unknown History sitagliptin phosphate 100 mg 100 mg PO DAILY 12/22/19 03/23/25 Unknown History tablet (Januvia) linagliptin 5 mg tablet (Tradjenta) 5 mg PO DAILY 12/15/23 03/23/25 Unknown History gabapentin 800 mg tablet 800 mg PO TID 04/24/24 03/23/25 Unknown History diazepam 5 mg tablet mg 07/10/24 Unknown History Imitrex 12/02/24 Unknown History dulaglutide 1.5 mg/0.5 mL mg subcut 12/02/24 Unknown History [facility] famotidine 20 mg tablet mg 12/02/24 Unknown History insulin glargine 100 unit/mL (3 unit subcut 12/02/24 Unknown History mL) subcutaneous pen (Basaglar KwikPen U-100 Insulin) spironolactone 25 mg tablet mg 12/02/24 Unknown History escitalopram oxalate 20 mg tablet mg 02/14/25 Unknown History furosemide 20 mg tablet mg 02/14/25 Unknown History guaifenesin 600 mg tablet, mg PO 02/14/25 Unknown History extended release 12 hr oxycodone-acetaminophen 10 mg-325 tablet 02/14/25 Unknown History mg tablet amitriptyline 50 mg tablet mg 03/16/25 Unknown History empagliflozin 25 mg tablet mg 03/16/25 Unknown History (Jardiance) ferrous sulfate 325 mg (65 mg mg 03/16/25 Unknown History iron) tablet (FeroSul) finerenone 20 mg tablet (Kerendia) mg 03/16/25 Unknown History fluticasone propionate 50 intranasal 03/16/25 Unknown History mcg/actuation nasal spray,suspension icosapent ethyl 1 gram capsule g PO 03/16/25 Unknown History (Vascepa) insulin aspart U-100 100 unit/mL subcut 03/16/25 Unknown History (3 mL) subcutaneous pen omeprazole 40 mg capsule,delayed mg 03/16/25 Unknown History release roflumilast 500 mcg tablet mcg 03/16/25 Unknown History rosuvastatin 20 mg tablet mg 03/16/25 Unknown History sacubitril 24 mg-valsartan 26 mg tablet 03/16/25 Unknown History tablet sumatriptan succinate 100 mg tablet mg PO 03/16/25 Unknown History theophylline 300 mg mg PO 03/16/25 Unknown History tablet,extended release,12 hr valacyclovir 500 mg tablet mg 03/16/25 Unknown History duloxetine 60 mg capsule,delayed mg PO 03/23/25 Unknown History release ergocalciferol (vitamin D2) 1,250 03/23/25 Unknown History mcg (50,000 unit) capsule levothyroxine 50 mcg tablet mcg 03/23/25 Unknown History Allergies Allergy/AdvReac Type Severity Reaction Status Date / Time Penicillins Allergy Swelling Verified 03/23/25 13:07 of Lip/Tongue/Throat Review of Systems Review of Systems: CONSTITUTIONAL: Denies fever, chills, body aches, or sweats. EYES: Denies visual changes, redness, or discharge. ENT: Denies rhinorrhea, sore throat, or otalgia. Positive for congestion, postnasal drip CARDIOVASCULAR: Denies chest pain, palpitations, or edema. RESPIRATORY: Positive for cough and wheezing. Negative for difficulty breathing or Dyspnea. GASTROINTESTINAL: Denies abdominal pain, nausea, vomiting, or diarrhea. GENITOURINARY: Denies dysuria or hematuria. SKIN: Denies rash or itching. MUSCULOSKELETAL: Denies back pain, joint pain, or myalgia. NEUROLOGIC: Denies headache, numbness, or weakness. PSYCHIATRIC: Denies anxiety or depression. All other systems reviewed are negative, except as documented in HPI. [facility] Past Medical History Medical History Diabetes Hyperlipidemia Hypertension Pacemaker COPD (chronic obstructive pulmonary disease) CHF (congestive heart failure) Surgical History Surgical History History of hysterectomy History of foot surgery History of surgery on wrist History of back surgery Family History Family History Mother Family history non-contributory Other Heart disease Hypertension Social History Social History Smoking status: Former smoker Alcohol intake: current Substance use: never Living arrangements: alone Gender identity (if verbalized by the patient): Female Sexual Orientation (if Verbalized by the Patient): Straight or Heterosexual Spiritual care concerns: No Comments At the time of my signature, I reviewed and agree with the nursing past medical, surgical, social, and family history. There is no relevant family history pertinent to the patient complaint. Exam Narrative: GENERAL: This is a well-nourished, well-developed adult, in no apparent distress. They are non ill-appearing, nontoxic appearing. HEAD: normocephalic, atraumatic. EYES: Sclera clear/white. Conjunctiva normal. Vision is grossly intact. Extraocular movements intact EARS: External ears normal, auditory canals clear and without drainage, TMs normal without perforation. Hearing grossly intact. NOSE: External nose normal with no obvious nasal discharge, nasal turbinates erythematous THROAT: Mucous membranes moist, posterior pharynx erythematous. Uvula midline. Exudate of postnasal drip present. NECK: Neck supple, non-tender without lymphadenopathy, masses or thyromegaly. CARDIOVASCULAR: Regular rate and rhythm without murmurs, gallops, or rubs. RESPIRATORY: End-expiratory wheezes heard throughout. Breath sounds equal bilaterally. No wheezes, rales, or rhonchi. Respiratory rate normal, respiratory effort nonlabored, no respiratory distress SKIN: Chin: 4 sutures present to the chin. Wound has scabbed over. No surrounding erythema, area of fluctuance, induration, no exudate. Nontender to palpate. Mild bruising to chin. NEURO: awake, alert, and oriented to person, place and time. There were no obvious focal neurologic abnormalities. EXTREMITIES: No joint tenderness, effusion, or edema noted. BACK: Nontender without deformity. No CVA tenderness. Course Course Emergency Course: Portions of this record may have been created with voice recognition software Level of Care: Express Care Visit Vital Signs Vital signs: Vital Signs Temperature 97.9 F 03/23/25 13:14 Pulse Rate 72 03/23/25 13:14 Respiratory Rate 14 03/23/25 13:14 Pulse Oximetry 96 03/23/25 13:14 Oxygen Delivery Room Air 03/23/25 13:14 Temperature 97.9 F 03/23/25 13:14 Pulse Rate 72 03/23/25 13:14 Respiratory Rate 14 03/23/25 13:14 Pulse Oximetry 96 03/23/25 13:14 Oxygen Delivery Room Air 03/23/25 13:14 Reviewed MDM - Wound/Laceration MDM Narrative Medical decision making narrative: Successful removal of sutures. No evidence of infection to wound. Appears patient likely has a bacterial sinus infection given her length of symptoms which could be exacerbating her COPD. Patient is on antibiotics frequently however there is presence of infection today. Go ahead and treat with doxycycline to cover sinusitis in COPD exacerbation. Patient has mild wheezing which could be her baseline, no apparent respiratory distress. Patient finishing a prednisone as inhalers as needed. Will hold off on additional prednisone use. Patient nontoxic appearing, no apparent distress, vital signs hemodynamically stable. Discussed physical exam findings. Advised supportive measures and signs/symptoms to go to the ER. Pt is appropriate for outpt treatment and f/u. Differential Diagnosis Differential diagnosis: Likely laceration, abrasion and other (Infection, wound check, suture removal, sinusitis, COPD exacerbation,, upper respiratory infection, viral illness) Critical Care Time Critical Care Time Critical Care Time: No Discharge Plan Discharge Clinical Impression: Visit for suture removal, COPD exacerbation Sinusitis Qualifiers: Sinusitis location: unspecified location Chronicity: acute Recurrence: non-recurrent Qualified Code(s): J01.90 - Acute sinusitis, unspecified Patient Disposition: Home Condition: Stable Instructions: Antibiotic Form, Sinusitis (ED), Acute Wounds (DC) Additional Instructions: Continue to look for signs of infection such as increased redness, swelling, pain, fevers, green/yellow drainage. Wash the wound daily with mild soap water. May apply Vaseline and sunscreen to the wound to help with scarring. Follow-up PCP in 1 week. To the ER for any signs of infection, or any serious concerns. Take the antibiotics as directed and complete the course even if you start to feel better. Wear sunscreen if you are going to be outside while taking doxycycline. You may use a Neti pot saline rinse 3 times a day with lukewarm distilled water Continue to take Tylenol as needed for pain or fevers. Follow instructions the bottle. Use a humidifier or vaporizer at night. Drink plenty of water. 8-10 glasses per day. Use flonase 2 times per day for 5 days then as needed Take mucinex 2 times per day and be sure to take with 8oz of water. Follow up with Primary provider in 3-5 days Please go to the ER if he develops any difficulty breathing, chest pains, vomiting, weakness, effusion, worsening symptoms, or any other concerns Patient Language: Burmese Prescriptions: New doxycycline monohydrate 100 mg capsule 100 mg PO BID 7 Days Qty: 14 0RF No Action Tradjenta 5 mg tablet 5 mg PO DAILY cyanocobalamin (vitamin B-12) 1,000 mcg tablet extended release 1,000 mcg PO DAILY albuterol sulfate 2.5 mg /3 mL (0.083 %) solution for nebulization 2.5 mg inhalation DIRECTED Rx Instructions: as prescribed aspirin 81 mg tablet,delayed release (DR/EC) 81 mg PO DAILY carvedilol 3.125 mg tablet 3.125 mg PO DAILY albuterol sulfate [Ventolin HFA] 90 mcg/actuation HFA aerosol inhaler 2 inh INHALATION DIRECTED rosuvastatin 5 mg tablet 5 mg PO DAILY Januvia 100 mg tablet 100 mg PO DAILY ivabradine [Corlanor] 5 mg tablet 5 mg PO DAILY gabapentin 800 mg Tablet 800 mg PO TID diazepam 5 mg tablet spironolactone 25 mg tablet famotidine 20 mg tablet insulin glargine [Basaglar KwikPen U-100 Insulin] 100 unit/mL (3 mL) insulin pen SUBCUT Trulicity 1.5 mg/0.5 mL pen injector SUBCUT Imitrex oxycodone-acetaminophen 10-325 mg tablet furosemide 20 mg tablet escitalopram oxalate 20 mg tablet guaifenesin 600 mg tablet extended release 12hr PO sumatriptan succinate 100 mg tablet PO valacyclovir 500 mg tablet omeprazole 40 mg capsule,delayed release(DR/EC) amitriptyline 50 mg tablet theophylline 300 mg tablet extended release 12 hr PO ferrous sulfate [FeroSul] 325 mg (65 mg iron) tablet fluticasone propionate 50 mcg/actuation spray,suspension INTRANASAL insulin aspart U-100 100 unit/mL (3 mL) insulin pen SUBCUT rosuvastatin 20 mg tablet roflumilast 500 mcg tablet icosapent ethyl [Vascepa] 1 gram capsule PO Jardiance 25 mg tablet sacubitril-valsartan 24-26 mg tablet Kerendia 20 mg tablet prednisone 20 mg tablet See Rx Instructions .ROUTE .COMPLEX Qty: 11 0RF Rx Instructions: 2 tabs po daily x 3 days, then 1 tab po daily x 3 days, then 1/2 tab po daily x 4 days levothyroxine 50 mcg tablet ergocalciferol (vitamin D2) 1,250 mcg (50,000 unit) capsule duloxetine 60 mg capsule,delayed release(DR/EC) PO Follow-up/Referrals: UNKNOWN,DOCTOR [Primary Care Provider] Time of Disposition: 13:18
--- OUTSIDE RECORDS SUMMARY | 2025-03-23 14:53 | XMS_ITS | Encounter Summary ---
Author Organization [facility] Address [address] [place] [address] Phone Care Team Providers Care Crate Opener Name Role Phone Cornelia Quang Chacon DO Unavailable [phone] Silvio Schulte MD Unavailable [phone] Werner Swift MD Unavailable Liz Capellan DO Primary Care Provider Yasmin Restrepo MD Unavailable Jose Do MD Unavailable Reason for Referral * Radiology Services (Routine) - Open Specialty Diagnoses / Procedures Referred By Contlima t Referred To Contact Radiology Diagnoses Multiple lung nodules on CT Procedures CT CHEST W/O CONTRAST Werner Swift MD [address] [place] [address] Phone: tel: fax: Referral ID Status Reason Start Date Expiration Date Visits Re quested Visits Authorized [id number] Open 02/04/2025 1 1 Encounter Details Date Type Department Care Team (Late st Contact Info) Description 02/02/2025 Results [facility] [address] [place] [address] Werner Swift MD [address] [place] [phone] CT CHEST W/O CONTRAST Social History Tobacco Use Types Packs/Day Years Used Date Smoking Tobacco: Former Cigarettes 2 50 1 - 03/16/2018 Smokeless Tobacco: Never Alcohol Use Standard Drinks/Week Comments No 0 (1 standard drink = 0.6 oz pur e alcohol) Social Connection and Isolation Panel Answer Date Recorded In a typical week, how many times do you talk on the phone with family, friends, or neighbors? Patient declined 10/05/2024 How often do you get togethe r with friends or relatives? Patient declined 10/05/2024 How often do you attend muslim or muslim serv ices? Patient declined 10/05/2024 Do you [...] Total Score - Questions 1-9 0 10/25 [facility] of Occupat ional Health - Occupational Stress Questionnaire Answer Date Recorded Do you feel stress - tense, restless, nervous, or anxious, or unable to sleep at night because your mind is troubled all the time - these days? Only a little 10/05/2024 Hunger Vital Sign Answer Date Recorded [...] in a halfway (including now)? No 07/13/2023 Housing Stability Vital Sign Answer Richar e Recorded In the last 12 months, was t here a time when you were not able to pay the mortgage or rent on time? No 10/05/2024 In the past 12 months, how m any times have you moved where you were living? 1 10/05/2024 At any time in the past 12 m [facility], were you homeless or living in a halfway (including now)? No 10/05/2024 Social Connection and Isolation Panel Answer Date Recorded In a typical week, how many times do you talk on the phone with family, friends, or neighbors? Patient declined 12/14/2024 How often do you get togethe r with friends or relatives? Patient declined 12/14/2024 How often do you attend muslim or muslim serv ices? Patient declined 12/14/2024 Do you belong to any clubs o r organizations such as muslim groups, unions, fraternal or athletic groups, or school groups? Patient declined 12/14/2024 How often do you attend meet ings of the clubs or organizations you belong to? Patient declined 12/14/2024 Are you , , di vorced, , never , or living with a partner? Patient declined 12/14/2024 AUDIT-C Answer Date Recorded Q1: How often do you have a drink containing alc ohol? Patient declined 12/14/2024 Q2: How many drinks containi ng alcohol do you have on a typical day when you are drinking? Patient declined 12/14/2024 Q3: How often do you have si x or more drinks on one occasion? Patient declined 12/14/2024 Overall Financial Resource Strain (CARDIA) Answe r Date Recorded How hard is it for you to pa y for the very basics like food, housing, medical care, and heating? Patient declined 12/14/2024 [facility] - Occupational Stress Questionnaire Answer Date Recorded Do you feel stress - tense, restless, nervous, or anxious, or unable to sleep at night because your mind is troubled all the time - these days? Patient declined 12/14/2024 Exercise Vital Sign Answer Date Recorde d On average, how many days pe r week do you engage in moderate to strenuous exercise (like a brisk walk)? Patient declined On average, how many minutes do you engage in exercise at this level? Patient declined 12/14/2024 Hunger Vital Sign Answer Date Recorded Within [...] appointments or from getting medications? Patient declined 12/14/2024 In the past 12 months, has l ack of transportation kept you from meetings, work, or from getting things needed for daily living? Patient declined 12/14/2024 Housing Stability Vital Sign Answer Richar e Recorded In the last 12 months, was t here a time when you were not able to pay the mortgage or rent on time? Patient declined 12/15/19 25 In the past 12 months, how m any times have you moved where you were living? 0 12/14/2024 At any time in the past 12 m onths, were you homeless or living in a halfway (including now)? Patient declined 12/14/2024 [facility] Utilities Answer Date Recorded In the past [address] [facility] legalPAD, gas, oil, or water company threatened to shut off services in your home? Patient declined 12/14/2024 Education Answer Date Recorded What is the [...] Care Team (Late st Contact Info) Description 04/26/2025 1:30 PM CLEANING TECHNICIAN Office Visit [facility] - Pulmonology & Sleep Medicine - [place] [address] [place] [phone] Werner Swift MD [address] [place] [address] 05/31/2025 1:20 PM CLEANING TECHNICIAN [facility] - [facility] Medicine - [place] [address] [place] [phone] Liz Capellan, DO 2 [facility] [address] [place], [place] [id number] 06/02/2025 1:30 PM CLEANING TECHNICIAN Office Visit [facility] - Endocrinology - [place] [address] [place] [phone] Yasmin Restrepo MD [address] [address] Scheduled Orders Name Type Priority Associated Diagnoses Orde r Schedule CT CHEST W/O CONTRAST Imaging Routine Multiple lung nodules on CT Expected: 02/04/2026, Expires: 08/04/2026 documented as of this encounter Goals Goal [...] Zones/Action plan education. I will notify my C S S Representative if my symptoms fall in the y ellow zone . I will consider receiving an influenza and pneumonia vaccination, if applicable. -I will call the office if I experience any symptoms listed above to discuss at home management options. Help patient manage COPD Care Plan [facility] COPD CONCERN No Liz Capellan, DO Help patient manage systolic heart failure [facility] No Liz Capellan, DO Help patients manage type 2 diabetes Care [facility] TYPE 2 DIABETES CONCERN No Liz Capellan, DO Help patient manage blood glucose Care Plan [facility] TYPE 2 DIABETES INSULIN - ANALOG PATTERN CONCERN No Liz Capellan DO documented as of this encounter Visit Diagnoses Diagnosis Multiple lung nodules on CT- Primary documented in this encounter Additional Health Concerns Active Problems Noted Date Diagnosed Date [facility] COPD CONCERN 11/09/2024 [facility] HEART FAILURE CONCERNS [...] documented as of this encounter Care Teams Crate Opener Relationship Specialty Start Date End Date Liz Capellan DO 2 [facility] [address] [place] [address] PCP - General Family Medicine 12/27/23 Quang Locke DO Gastroenterology 01/18/16 [place] [id number] [address] 05/25/21 Werner Swift MD [address] [place] [address] Consulting Physician Pulmonary Disease 01/30/22 Yasmin Restrepo MD [address] [facility] [address] [place] [address] Consulting Physician Endocrinology 07/20/24 Jose Do MD [address] [address] Consulting Physician Colon and Rectal Surgery 10/12/24 documented as of this encounter
--- OUTSIDE RECORDS SUMMARY | 2025-03-23 14:53 | XMS_ITS | Encounter Summary ---
Author Organization [facility] Address [address] [place] [address] Phone Care Team Providers Care Dentist Private Practice Name Role Phone SloanQuang walker Oswaldo PRESLEY Unavailable [phone] Silvio Schulte MD Unavailable [phone] Werner Swift MD Unavailable Liz Capellan DO Primary Care Provider Yasmin Restrepo MD Unavailable Jose Do MD Unavailable Encounter Details Date Type Department Care Team (Late st Contact Info) Description 02/09/2025 Results Follow-Up [facility] - Family Medicine [facility] [address] [place] [phone] Ana Vivar, APPLE CHECKER, HUMAN RESOURCES MANAGER MANUFACTURING 2 [facility]. [address] [place] [address] XR CHEST 2 VIEWS Social History Tobacco Use Types Packs/Day Years [...] declined 10/05/2024 How often do you attend anabaptist or congregational serv ices? Patient declined 10/05/2024 Do you [...] Total Score - Questions 1-9 0 10/25 [facility] - Occupational [...] any time in the past 12 m [facility], were you homeless or living in a long term (including now)? No 10/05/2024 Social Connection and Isolation Panel Answer Date Recorded In a typical week, how many times do you talk on the phone with family, friends, or neighbors? Patient declined 12/14/2024 How often do you get togethe r with friends or relatives? Patient declined 12/14/2024 How often do you attend anabaptist or congregational serv ices? Patient declined 12/14/2024 Do you [...] medical care, and heating? Patient declined 12/14/2024 [facility] - Occupational [...] any time in the past 12 m [facility], were you homeless or living in a long term (including now)? Patient declined 12/14/2024 [facility] Utilities Answer Date Recorded In [...] on file documented as of this encounter Progress Notes * Ana Vivar APRN, CNP - 02/09/2025 3:58 PM CDT Negative pneumonia documented in this encounter Plan of Treatment Upcoming Encounters Date Type Department Care Team (Late st Contact Info) Description 04/26/2025 1:30 PM LOGISTICS LEAD Office Visit [facility] - Pulmonology & Sleep Medicine [facility] [address] [place] [address] Werner Swift MD [address] [place] [address] 05/31/2025 1:20 PM LOGISTICS LEAD Office Visit [facility] - Family Medicine - [place] [address]2 [place] [address] Liz Capellan, DO 2 [facility]. [address] [place] [address] 06/02/2025 1:30 PM LOGISTICS LEAD Office Visit [facility] - Endocrinology [facility] [address] [place] [address] Yasmin Restrepo MD #2 [facility] [address] [place] [address] documented as of this encounter Goals Goal [...] Zones/Action plan education. I will notify my Race Relations Adviser if my symptoms fall in the y ellow zone . I will consider receiving an influenza and pneumonia vaccination, if applicable. -I will call the office if I experience any symptoms listed above to discuss at home management options. Help patient manage COPD Care Plan [facility] COPD CONCERN No Liz Capellan, DO Help patient manage systolic heart failure Care Plan [facility] HEART FAILURE CONCERNS No Liz Capellan DO Help patients manage type 2 diabetes Care Plan [facility] TYPE 2 DIABETES CONCERN No Liz Capellan, DO Help patient manage blood glucose Care Plan [facility] TYPE 2 DIABETES INSULIN - ANALOG PATTERN CONCERN No Liz Capellan DO documented as of this encounter Visit Diagnoses Not on filedocumented in this encounter Additional Health Concerns Active Problems Noted Date Diagnosed Date [facility] COPD CONCERN 11/09/2024 [facility] HEART FAILURE CONCERNS 11/09/2024 [facility] TYPE 2 DIABETES CONCERN 11/09/2024 [facility] TYPE 2 DIABETES INSULIN - ANALOG PATTERN CO NCERN 11/09/2024 Infection Onset Date Last Indicated Resolved Time Stenotrophomonas maltophilia Comment:Must have a follow up respiratory sample to remove isolation/infection flag. 10/20/2021 10/20/2021 Assessment Noted Time PHQ-9 Depression Total Score: 0 11/10/19 25 11:00 AM CDT documented as of this encounter Care Teams Dentist Private Practice Relationship Specialty Start Date End Date Liz Capellan DO 2 [facility] [address] [place], [place] [phone] PCP - General Family Medicine 12/27/23 Quang Locke DO Gastroenterology 01/18/16 [place] [id number] [address] 05/25/21 Werner Swift MD [address] [place] [address] Consulting Physician Pulmonary Disease 01/30/22 Yasmin Restrepo MD [address] [address] Consulting Physician Endocrinology 07/20/24 Jose Do MD [address] [address] Consulting Physician Colon and Rectal Surgery 10/12/24 documented as of this encounter
--- OUTSIDE RECORDS SUMMARY | 2025-03-23 14:54 | XMS_ITS | Encounter Summary ---
Author Organization [facility] Address [address] [place] [address] Phone Care Team Providers Care Director Of Maternity Services Name Role Phone Quang Locke Unavailable [phone] Keith Craft MD Primary Care Provider [phone] Bri Rollins RN Unavailable Unavailable Silvio Schulte MD Unavailable [phone] Bri Rollins RN Unavailable Unavailable Werner Swift MD Unavailable Liz Capellan DO Primary Care Provider [phone] Yasmin Restrepo MD Unavailable Jose Do MD Unavailable Reason for Visit * Reason Comments Medication Refill Encounter Details Date Type Department Care Team (Late st Contact Info) Description 11/20/2021 [facility]ill [facility] [address] [place] [address] Keith Craft MD [address] [place] [address] Medication Refill Social History Tobacco [...] [place] 07/31/21 Office Visit Keith Craft MD [facility] 05/25/21 Office Visit Marcin Anderson, AUTOMATIC MACHINE ATTENDANT, EDGING SUPERVISOR [facility] 05/05/21 Office Visit Brie Denis, PAC [facility] 04/14/21 Office Visit [facility] 03/23[facility]21 Office Visit Keith Craft MD [facility] Showing recent visits within past 730 days and meeting all other requirements Future Appointments Date Type Provider Dept 12/19/21 Appointment Keith Craft MD [facility] [place] Showing future appointments within next 90 days and meeting all other requirements Passed - No documented Systolic BP > 200 within past 3 months Passed - Number of active Serotonergic medications less than 3 documented in this encounter Plan of Treatment Upcoming Encounters Date Type Department Care Team (Late st Contact Info) Description 04/26/2025 1:30 PM LANDFILL GAS COLLECTION SYSTEM OPERATOR Office Visit [facility] - Pulmonology & Sleep Medicine - [place] [address] [place] [address] Werner Swift MD [address] [place] [address] 05/31/2025 1:20 PM LANDFILL GAS COLLECTION SYSTEM OPERATOR Office Visit [facility] Medical [facility] - Family Medicine - [place] [address] [place] [address] Liz Capellan, DO [address] [address] 06/02/2025 1:30 PM LANDFILL GAS COLLECTION SYSTEM OPERATOR Office Visit [facility] Medical [facility] - Endocrinology - [place] [address]2 [facility] [address] Yasmin Restrepo MD #[address] [address] [phone] (work) documented as of this encounter Goals [...] plan education. I will notify my Manager Training And Development if my symptoms fall in the y [...] 19 04/20/2022 04/20/2022 04/30/2022 12:1 8 AM LANDFILL GAS COLLECTION SYSTEM OPERATOR COVID - 19 07/18/2022 07/18/2022 07/28/2022 12:1 6 AM LANDFILL GAS COLLECTION SYSTEM OPERATOR COVID - 19 08/21/2022 08/21/2022 08/22/2022 8:31 AM CDT Respiratory Rule Out - RPA 08/21/2022 08/21/2022 0 08/22/2022 3:21 PM CDT COVID - 19 04/18/2023 04/18/2023 04/28/2023 12:1 6 AM LANDFILL GAS COLLECTION SYSTEM OPERATOR COVID - 19 07/13/2023 07/13/2023 07/23/2023 12:1 6 AM LANDFILL GAS COLLECTION SYSTEM OPERATOR Respiratory Rule Out - RPA 03/17/2024 03/17/2024 1 3:36 PM CDT COVID - 19 04/27/2024 04/27/2024 04/27/2024 2:19 PM LANDFILL GAS COLLECTION SYSTEM OPERATOR Respiratory Rule-Out 07/24/2024 07/24/2024 025 2:29 PM LANDFILL GAS COLLECTION SYSTEM OPERATOR COVID - 19 07/24/2024 07/24/2024 07/24/2024 2:29 PM LANDFILL GAS COLLECTION SYSTEM OPERATOR COVID - 19 08/22/2024 08/22/2024 08/22/2024 11:4 6 PM CDT COVID - 19 09/03/2024 09/03/2024 09/03/2024 12:4 7 PM CDT Assessment Noted Time PHQ-9 Depression Total Score: 1 03/07/20 21 10:29 AM CDT documented as of this encounter Care Teams Director Of Maternity Services Relationship Specialty Start Date End Date Keith Craft MD PCP - General Family Medicine 01/14/19 12/26/23 Liz Capellan DO [address] [address] PCP - General Family Medicine 12/27/23 Quang Locke DO Gastroenterology 01/18/16 Bri Rollins RN [place] Manager Training And Development 03/07/21 05/22/23 [place] [id number] [address] 05/25/21 Bri Rollins RN [place] Nurse Manager Training And Development 03/07/21 05/23/23 Werner Swift MD [address] [place] [address] Consulting Physician Pulmonary Disease 01/30/22 Yasmin Restrepo MD #[address] [phone] Consulting Physician Endocrinology 07/20/24 Jose Do MD #[address] [id number] Consulting Physician Colon and Rectal Surgery 10/12/24 documented as of this encounter
--- OUTSIDE RECORDS SUMMARY | 2025-03-23 14:54 | XMS_ITS | Encounter Summary ---
Author Organization [facility] Address [address] [place] [address] Phone Care Team Providers Care Project Development Engineer Name Role Phone Quang Locke Unavailable Keith Craft MD Primary Care Provider [phone] Bri Rollins RN Unavailable Unavailable Silvio Schulte MD Unavailable [phone] rBi Rollins RN Unavailable Unavailable Werner Swift MD Unavailable Liz Capellan DO Primary Care Provider [phone] Yasmin Restrepo MD Unavailable Jose Do MD Unavailable Reason for Visit * Reason Comments Medication Refill Encounter Details Date Type Department Care Team (Late st Contact Info) Description 06/01/2020 Refill [facility] - Family Medicine [facility] [address] [place] [address] Keith Craft MD [address] [place] [address] Medication Refill Social History Tobacco [...] COVID-19? No / Unsure 05/24/2020 1:11 PM APPLICATION DEVELOPMENT CONSULTANT documented as of this encounter Miscellaneous Notes * Telephone Encounter - Yonathan Bonilla MD - 06/01/2020 3:58 PM CST Prescription pending signature ICATION DEVELOPMENT CONSULTANT * Telephone Encounter - Gloria Cornejo [...] upper lobe due to infectious organism [facility] Group - Family Medicine - Keith Jenkins MD 4 months ago Acute non-recurrent maxillary sinusitis [facility] - Family Medicine - Keith Jenkins MD 7 months ago Chronic prescription opiate use [facility] - Family [facility] - Keith Jenkins MD 10 months ago 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 [facility] 11 months ago COPD exacerbation (HCC) [facility] NICOLE Upcoming Appointments Future Appointments In 6 days Keith Craft MD [facility] [place], [facility] NETWORK CONTRACT MANAGER - Recent and Past Visits Recent Visits Date Type Provider Dept 04/25/20 Office Visit Keith Craft MD [facility] 02/02/20 Office Visit Keith Craft MD [facility] 11/02/19 Office Visit Keith Craft MD [facility] 07/27/19 Office Visit Keith Craft MD [facility] 06/10/19 Office Visit Brie Denis, NICOLE [facility] [place] 04/20/19 Office Visit Keith Craft MD [facility] [place] Showing recent visits within past 460 days with a meds authorizing provider and meeting all other requirements Future Appointments Date Type Provider Dept 06/07/20 Appointment Keith Craft MD [facility] Showing future appointments within next 90 days with a meds authorizing provider and meeting all other requirements ICATION DEVELOPMENT CONSULTANT documented in this encounter Plan of Treatment Upcoming Encounters Date Type Department Care Team (Late st Contact Info) Description 04/26/2025 1:30 PM APPLICATION DEVELOPMENT CONSULTANT Office Visit [facility] - Pulmonology & Sleep Medicine - [place] [address] [place] [address] Werner Swift MD [address] [place] [address] 05/31/2025 1:20 PM APPLICATION DEVELOPMENT CONSULTANT Office Visit [facility] [address]2 [place] [address] Liz Capellan, DO [address] [place] [address] 06/02/2025 1:30 PM APPLICATION DEVELOPMENT CONSULTANT Office Visit [facility] - Endocrinology - [place] #[address] [place] [address] Yasmin Restrepo MD #[address] [facility] [address] [place] [address] documented as of this encounter Visit Diagnoses Diagnosis Anxiety and depression Dysthymic disorder documented in this encounter Additional Health Concerns Infection Onset Date Last Indicated Resolved Time COVID - 19 01/25/2021 01/25/2021 01/31/2021 8:10 AM CDT Respiratory Rule Out - RPA 01/30/2021 01/30/2021 0 02/01/2021 12:45 AM CDT COVID - 19 07/23/2021 07/23/2021 07/24/2021 6:31 AM APPLICATION DEVELOPMENT CONSULTANT COVID - 19 10/19/2021 10/19/2021 10/20/2021 7:45 AM CDT Respiratory Rule Out - RPA 10/19/2021 10/19/2021 0 10/20/2021 2:10 PM CDT Stenotrophomonas maltophilia Comment:Must have a follow up respiratory sample to remove isolation/infection flag. 10/20/2021 10/20/2021 COVID - 19 04/20/2022 04/20/2022 04/30/2022 12:1 8 AM APPLICATION DEVELOPMENT CONSULTANT COVID - 19 07/18/2022 07/18/2022 07/28/2022 12:1 6 AM APPLICATION DEVELOPMENT CONSULTANT COVID - 19 08/21/2022 08/21/2022 08/22/2022 8:31 AM CDT Respiratory Rule Out - RPA 08/21/2022 08/21/2022 0 08/22/2022 3:21 PM CDT COVID - 19 04/18/2023 04/18/2023 04/28/2023 12:1 6 AM APPLICATION DEVELOPMENT CONSULTANT COVID - 19 07/13/2023 07/13/2023 07/23/2023 12:1 6 AM APPLICATION DEVELOPMENT CONSULTANT Respiratory Rule Out - RPA 03/17/2024 03/17/2024 1 3:36 PM CDT COVID - 19 04/27/2024 04/27/2024 04/27/2024 2:19 PM APPLICATION DEVELOPMENT CONSULTANT Respiratory Rule-Out 07/24/2024 07/24/2024 025 2:29 PM APPLICATION DEVELOPMENT CONSULTANT COVID - 19 07/24/2024 07/24/2024 07/24/2024 2:29 PM APPLICATION DEVELOPMENT CONSULTANT COVID - 19 08/22/2024 08/22/2024 08/22/2024 11:4 6 PM CDT COVID - 19 09/03/2024 09/03/2024 09/03/2024 12:4 7 PM CDT Assessment Noted Time PHQ-9 Depression Total Score: 1 06/10/19 20 1:03 PM APPLICATION DEVELOPMENT CONSULTANT documented as of this encounter Care Teams Project Development Engineer Relationship Specialty Start Date End Date Keith Craft MD PCP - General Family Medicine 01/14/19 12/26/23 Liz Capellan DO [address] [address] PCP - General Family Medicine 12/27/23 Quang Locke DO Gastroenterology 01/18/16 Bri Rollins RN [place] Makeup Editor 03/07/21 05/22/23 [place] [address] [address] 05/25/21 Bri Rollins RN [place] Nurse Makeup Editor 03/07/21 05/23/23 Werner Swift MD #2 [place] [phone] Consulting Physician Pulmonary Disease 01/30/22 Yasmin Restrepo MD #[address] [phone] Consulting Physician Endocrinology 07/20/24 Jose Do MD #[address] [address] Consulting Physician Colon and Rectal Surgery 10/12/24 documented as of this encounter
--- OUTSIDE RECORDS SUMMARY | 2025-03-23 14:54 | XMS_ITS | Encounter Summary ---
Author Organization [facility] Address [address] [place] [address] Phone Care Team Providers Care Curriculum And Assessment Coordinator Name Role Phone Quang Locke Unavailable [phone] Keith Craft MD Primary Care Provider [phone] Bri Rollins RN Unavailable Unavailable Silvio Schulte MD Unavailable [phone] Bri Rollins RN Unavailable Unavailable Werner Swift MD Unavailable Liz Capellan DO Primary Care Provider [phone] Yasmin Restrepo MD Unavailable Jose Do MD Unavailable Reason for Visit * Reason Comments Medication Refill Encounter Details Date Type Department Care Team (Late st Contact Info) Description 12/04/2021 Refill [facility] - Family Medicine [facility] #2 [place] [address] Keith Craft MD [address] [place] [address] Medication Refill Social History Tobacco [...] 07/31/21 Office Visit Keith Craft MD [facility] 05/25/21 Office Visit Marcin Anderson, UNDERWRITING CLERK, RN HEMATOLOGY [facility] 05/05/21 Office Visit Brie Denis, PAC [facility] 04/14/21 Office Visit [facility] 03/23/21 Office Visit Keith Craft, [facility] Showing recent visits within past 365 days and meeting all other requirements Future Appointments Date Type Provider Dept 12/19/21 Appointment Keith Craft MD [facility] [place] Showing future appointments within next 90 days and meeting all other requirements documented in this encounter Plan of Treatment Upcoming Encounters Date Type Department Care Team (Late st Contact Info) Description 04/26/2025 1:30 PM SISAL PICKER Office Visit [facility] - Pulmonology & Sleep Medicine - [place] [address] [place] [address] Werner Swift MD [address] [place] [address] 05/31/2025 1:20 PM SISAL PICKER Office Visit [facility] - Family Medicine - [place] [address] [place] [address] Liz Capellan, DO [address] [address] 06/02/2025 1:30 PM SISAL PICKER Office Visit [facility] - Endocrinology - [place] [address] [place] [address] Yasmin Restrepo MD #[address] [phone] documented as of this encounter Goals Goal [...] Zones/Action plan education. I will notify my Agricultural Labor Camp Manager if my symptoms fall in the [...] 19 04/20/2022 04/20/2022 04/30/2022 12:1 8 AM SISAL PICKER COVID - 19 07/18/2022 07/18/2022 07/28/2022 12:1 6 AM SISAL PICKER COVID - 19 08/21/2022 08/21/2022 08/22/2022 8:31 AM CDT Respiratory Rule Out - RPA 08/21/2022 08/21/2022 0 08/22/2022 3:21 PM CDT COVID - 19 04/18/2023 04/18/2023 04/28/2023 12:1 6 AM SISAL PICKER COVID - 19 07/13/2023 07/13/2023 07/23/2023 12:1 6 AM SISAL PICKER Respiratory Rule Out - RPA 03/17/2024 03/17/2024 1 3:36 PM CDT COVID - 19 04/27/2024 04/27/2024 04/27/2024 2:19 PM SISAL PICKER Respiratory Rule-Out 07/24/2024 07/24/2024 025 2:29 PM SISAL PICKER COVID - 19 07/24/2024 07/24/2024 07/24/2024 2:29 PM SISAL PICKER COVID - 19 08/22/2024 08/22/2024 08/22/2024 11:4 6 PM CDT COVID - 19 09/03/2024 09/03/2024 09/03/2024 12:4 7 PM CDT Assessment Noted Time PHQ-9 Depression Total Score: 1 03/07/20 10:29 AM CDT documented as of this encounter Care Teams Curriculum And Assessment Coordinator Relationship Specialty Start Date End Date Keith Craft MD PCP - General Family Medicine 01/14/19 12/26/23 Liz Capellan DO [address] [address] PCP - General Family Medicine 12/27/23 Quang Locke DO Gastroenterology 01/18/16 Bri Rollins RN [place] Agricultural Labor Camp Manager 03/07/21 05/22/23 [place] [address] [address] 05/25/21 Rollins, Bri M, RN [place] Nurse Agricultural Labor Camp Manager 03/07/21 05/23/23 Werner Swift MD [address] [place] [address] Consulting Physician Pulmonary Disease 01/30/22 Yasmin Restrepo MD #[address] [phone] Consulting Physician Endocrinology 07/20/24 Jose Do MD #[address] [address] Consulting Physician Colon and Rectal Surgery 10/12/24 documented as of this encounter
--- OUTSIDE RECORDS SUMMARY | 2025-03-23 14:54 | XMS_ITS | Encounter Summary ---
Author Organization [facility] Address [address] [place] [address] Phone Care Team Providers Care Employee Communications Specialist Name Role Phone Quang Locke Unavailable [phone] Keith Craft MD Primary Care Provider [phone] Bri Rollins RN Unavailable Unavailable Silvio Schulte MD Unavailable [phone] Bri Rollins RN Unavailable Unavailable Werner Swift MD Unavailable Liz Capellan DO Primary Care Provider [phone] Yasmin Restrepo MD Unavailable Jose Do MD Unavailable Reason for Visit * Reason Comments Medication Refill Encounter Details Date Type Department Care Team (Late st Contact Info) Description 03/27/2020 Refill [facility] - [facility] Medicine [facility] #2 [place] [address] Keith Craft MD #1 [place] [address] Medication Refill Social History Tobacco Use Types [...] Last A1C 11/02/19 5.8 Follow up 06/16/20 DE PARTIE documented in this encounter Plan of Treatment Upcoming Encounters Date Type Department Care Team (Late st Contact Info) Description 04/26/2025 1:30 PM CHEF DE PARTIE Office Visit [facility] - Pulmonology & Sleep Medicine [facility] #2 [place] [address] Werner Swift MD #2 [place] [address] 05/31/2025 1:20 PM CHEF DE PARTIE [facility] Visit [facility] - Family Medicine - [place] #2 [place] [address] Liz Capellan, DO [address] [address] 06/02/2025 1:30 PM CHEF DE PARTIE Office Visit [facility] - Endocrinology - [place] #2 [place] [phone] Yasmin Restrepo MD [address] [address] documented as of this encounter Visit Diagnoses Diagnosis Type 2 diabetes mellitus with diabetic neuropathy, with long-term current use of insulin documented in this encounter Additional Health Concerns Infection Onset Date Last Indicated Resolved Time COVID - 19 01/25/2021 01/25/2021 01/31/2021 8:10 AM CDT Respiratory Rule Out - RPA 01/30/2021 01/30/2021 0 02/01/2021 12:45 AM CDT COVID - 19 07/23/2021 07/23/2021 07/24/2021 6:31 AM CHEF DE PARTIE COVID - 19 10/19/2021 10/19/2021 10/20/2021 7:45 AM CDT Respiratory Rule Out - RPA 10/19/2021 10/19/2021 0 10/20/2021 2:10 PM CDT Stenotrophomonas maltophilia Comment:Must have a follow up respiratory sample to remove isolation/infection flag. 10/20/2021 10/20/2021 COVID - 19 04/20/2022 04/20/2022 04/30/2022 12:1 8 AM CHEF DE PARTIE COVID - 19 07/18/2022 07/18/2022 07/28/2022 12:1 6 AM CHEF DE PARTIE COVID - 19 08/21/2022 08/21/2022 08/22/2022 8:31 AM CDT Respiratory Rule Out - RPA 08/21/2022 08/21/2022 0 08/22/2022 3:21 PM CDT COVID - 19 04/18/2023 04/18/2023 04/28/2023 12:1 6 AM CHEF DE PARTIE COVID - 19 07/13/2023 07/13/2023 07/23/2023 12:1 6 AM CHEF DE PARTIE Respiratory Rule Out - RPA 03/17/2024 03/17/2024 1 3:36 PM CDT COVID - 19 04/27/2024 04/27/2024 04/27/2024 2:19 PM CHEF DE PARTIE Respiratory Rule-Out 07/24/2024 07/24/202428/2 025 2:29 PM CHEF DE PARTIE COVID - 19 07/24/2024 07/24/2024 07/24/2024 2:29 PM CHEF DE PARTIE COVID - 19 08/22/2024 08/22/2024 08/22/2024 11:4 6 PM CDT COVID - 19 09/03/2024 09/03/2024 09/03/2024 12:4 7 PM CDT Assessment Noted Time PHQ-9 Depression Total Score: 1 06/10/19 20 1:03 PM CHEF DE PARTIE documented as of this encounter Care Teams Employee Communications Specialist Relationship Specialty Start Date End Date Keith Craft MD PCP - General Family Medicine 01/14/19 12/26/23 Liz Capellan DO [address] [address] PCP - General Family Medicine 12/27/23 Quang Locke DO Gastroenterology 01/18/16 Bri Rollins, RN [place] Contract Loader 03/07/21 05/22/23 [place] [address] [address] 05/25/21 Bri Rollins, RN [place] Nurse Contract Loader 03/07/21 05/23/23 Werner Swift MD #2 [place] [address] Consulting Physician Pulmonary Disease 01/30/22 Yasmin Restrepo MD #[address] [phone] Consulting Physician Endocrinology 07/20/24 Jose Do MD #2 [place] [address] Consulting Physician Colon and Rectal Surgery 10/12/24 documented as of this encounter
--- OUTSIDE RECORDS SUMMARY | 2025-03-23 14:54 | XMS_ITS | Encounter Summary ---
Author Organization [facility] Address [address] [place] [address] Phone Care Team Providers Care Farm Equipment Mechanic Name Role Phone Quang Locke Unavailable [phone] Keith Craft MD Primary Care Provider [phone] Bri Rollins RN Unavailable Unavailable Silvio Schulte MD Unavailable [phone] Bri Rollins RN Unavailable Unavailable Werner Swift MD Unavailable Liz Capellan DO Primary Care Provider [phone] Yasmin Restrepo MD Unavailable Jose Do MD Unavailable Reason for Visit * Reason Comments Medication Refill Encounter Details Date Type Department Care Team (Late st Contact Info) Description 04/29/2020 Refill [facility] - [facility] #2 [place] [address] Keith Craft MD #1 [place], [place] [id number] Medication Refill Social History Tobacco Use Types [...] COVID-19? No / Unsure 04/25/2020 1:42 PM WHOLESALE BUYER documented as of this encounter Miscellaneous [...] due to infectious organism [facility] - Keith Jenkins MD 2 months ago Acute non-recurrent maxillary sinusitis [facility] - Keith Jenkins MD 5 months ago Chronic prescription opiate use [facility] - Keith Jenkins MD 9 months ago Coronary artery disease involving upper mattaponi coronary artery of upper mattaponi heart without angina pectoris [facility] Keith Lemus MD 10 months ago COPD exacerbation (HCC) [facility] - Brie Castano, NICOLE Upcoming Appointments Future Appointments In 1 month Keith Craft MD [facility] Medical [facility] - Family Medicine - [place], [facility] ROD BENDING MACHINE OPERATOR - Recent and Past Visits Recent Visits Date Type Provider Dept 04/25/20 Office Visit Keith Craft MD [facility] 02/02/20 Office Visit Keith Craft MD [facility] 11/02/19 Office Visit Keith Craft MD [facility] 07/27/19 Office Visit Keith Craft MD [facility] 06/10/19 Office Visit Brie Denis PAC [facility] [place] 04/20/19 Office Visit Keith Craft MD [facility] [address] [place] Showing recent visits within past 460 days with a meds authorizing provider and meeting all other requirements Future Appointments Date Type Provider Dept 06/07/20 Appointment Keith Craft MD [facility] Showing future appointments within next 90 days with a meds authorizing provider and meeting all other requirements ESALE BUYER documented in this encounter Plan of Treatment Upcoming Encounters Date Type Department Care Team (Late st Contact Info) Description 04/26/2025 1:30 PM WHOLESALE BUYER Office Visit [facility] Medical [facility] - Pulmonology & Sleep Medicine [facility] #2 [place] [address] Werner Swift MD #2 [place] [address] 05/31/2025 1:20 PM WHOLESALE BUYER Office Visit [facility] - [place] #2 [place] [address] Liz Capellan, DO [address] [address] 06/02/2025 1:30 PM WHOLESALE BUYER Office Visit [facility] - Endocrinology - [place] [address] [place] [address] Yasmin Restrepo MD #[address] [address] documented as of this encounter Visit Diagnoses Diagnosis Anxiety and depression Dysthymic disorder documented in this encounter Additional Health Concerns Infection Onset Date Last Indicated Resolved Time COVID - 19 01/25/2021 01/25/2021 01/31/2021 8:10 AM CDT Respiratory Rule Out - RPA 01/30/2021 01/30/2021 0 02/01/2021 12:45 AM CDT COVID - 19 07/23/2021 07/23/2021 07/24/2021 6:31 AM WHOLESALE BUYER COVID - 19 10/19/2021 10/19/2021 10/20/2021 7:45 AM CDT Respiratory Rule Out - RPA 10/19/2021 10/19/2021 0 10/20/2021 2:10 PM CDT Stenotrophomonas maltophilia Comment:Must have a follow up respiratory sample to remove isolation/infection flag. 10/20/2021 10/20/2021 COVID - 19 04/20/2022 04/20/2022 04/30/2022 12:1 8 AM WHOLESALE BUYER COVID - 19 07/18/2022 07/18/2022 07/28/2022 12:1 6 AM WHOLESALE BUYER COVID - 19 08/21/2022 08/21/2022 08/22/2022 8:31 AM CDT Respiratory Rule Out - RPA 08/21/2022 08/21/2022 0 08/22/2022 3:21 PM CDT COVID - 19 04/18/2023 04/18/2023 04/28/2023 12:1 6 AM WHOLESALE BUYER COVID - 19 07/13/2023 07/13/2023 07/23/2023 12:1 6 AM WHOLESALE BUYER Respiratory Rule Out - RPA 03/17/2024 03/17/2024 1 3:36 PM CDT COVID - 19 04/27/2024 04/27/2024 04/27/2024 2:19 PM WHOLESALE BUYER Respiratory Rule-Out 07/24/2024 07/24/2024 025 2:29 PM WHOLESALE BUYER COVID - 19 07/24/2024 07/24/2024 07/24/2024 2:29 PM WHOLESALE BUYER COVID - 19 08/22/2024 08/22/2024 08/22/2024 11:4 6 PM CDT COVID - 19 09/03/2024 09/03/2024 09/03/2024 12:4 7 PM CDT Assessment Noted Time PHQ-9 Depression Total Score: 1 06/10/19 20 1:03 PM WHOLESALE BUYER documented as of this encounter Care Teams Farm Equipment Mechanic Relationship Specialty Start Date End Date Keith Craft MD PCP - General Family Medicine 01/14/19 12/26/23 Liz Capellan DO [address] [address] PCP - General Family Medicine 12/27/23 Quang Locke DO Gastroenterology 01/18/16 Bri Rollins RN [place] Crop Grain Or Livestock Farm Manager 03/07/21 05/22/23 [place] [address] [address] 05/25/21 Bri Rollins, KATEY [place] Nurse Crop Grain Or Livestock Farm Manager 03/07/21 05/23/23 Werner Swift MD #2 [place] [address] Consulting Physician Pulmonary Disease 01/30/22 Yasmin Restrepo MD #[address] [address] Consulting Physician Endocrinology 07/20/24 Jose Do MD #[address] [address] Consulting Physician Colon and Rectal Surgery 10/12/24 documented as of this encounter
--- OUTSIDE RECORDS SUMMARY | 2025-03-23 14:54 | XMS_ITS | Encounter Summary ---
Author Organization [facility] Address [address] [place] [address] Phone Care Team Providers Care Quality Improvement Analyst Name Role Phone Quang Locke Unavailable [phone] Keith Craft MD Primary Care Provider [phone] Bri Rollins RN Unavailable Unavailable Silvio Schulte MD Unavailable [phone] Bri Rollins RN Unavailable Unavailable Werner Swift MD Unavailable Liz Capellan DO Primary Care Provider Yasmin Restrepo MD Unavailable Jose Do MD Unavailable Reason for Visit * Reason Comments Medication Refill Encounter Details Date Type Department Care Team (Late st Contact Info) Description 11/21/2021 Refill [facility] #2 [place] [address] Keith Craft MD #1 [place] [address] Medication Refill Social History Tobacco [...] [place] 05/25/21 Office Visit Marcin Anderson APRN, CREW CALLER [facility] 05/05/21 Office Visit Brie Denis, PAC [facility] [place] 04/14/21 Office Visit Keith [facility] MD [facility] [place] 05/25/21 Office Visit Marcin Anderson APRN, CREW CALLER [facility] [place] 05/05/21 Office Visit Brie Denis, PAC [facility] [...] st Contact Info) Description 04/26/2025 1:30 PM ARTIFACTS CONSERVATOR Office Visit [facility] Medical [facility] - Pulmonology & Sleep Medicine - [place] #2 [facility] [place] [address] Werner Swift MD #2 [facility] [address] 05/31/2025 1:20 PM ARTIFACTS CONSERVATOR [facility] Medical [facility] - Family Medicine - [place] #2 [facility] [place] [address] Liz Capellan, DO 2 [facility] [address] [place] [address] 06/02/2025 1:30 PM ARTIFACTS CONSERVATOR Office Visit [facility] - Endocrinology - [place] #2 [facility] [place] [phone] Yasmin Restrepo MD #[address] [place] [address] documented as of this encounter Goals Goal [...] Zones/Action plan education. I will notify my Solar Project Coordination Specialist if my symptoms fall in the y ellow zone . I will consider receiving an influenza and pneumonia vaccination, if applicable. -I will call the office if I experience any symptoms listed above to discuss at home management options. documented as of this encounter Visit Diagnoses Diagnosis Pulmonary emphysema, unspecified emphysema type documented in this encounter Additional Health Concerns Infection Onset Date Last Indicated Resolved Time Stenotrophomonas maltophilia Comment:Must have a follow up respiratory sample to remove isolation/infection flag. 10/20/2021 10/20/2021 COVID - 19 04/20/2022 04/20/2022 04/30/2022 12:1 8 AM ARTIFACTS CONSERVATOR COVID - 19 07/18/2022 07/18/2022 07/28/2022 12:1 6 AM ARTIFACTS CONSERVATOR COVID - 19 08/21/2022 08/21/2022 08/22/2022 8:31 AM CDT Respiratory Rule Out - RPA 08/21/2022 08/21/2022 0 08/22/2022 3:21 PM CDT COVID - 19 04/18/2023 04/18/2023 04/28/2023 12:1 6 AM ARTIFACTS CONSERVATOR COVID - 19 07/13/2023 07/13/2023 07/23/2023 12:1 6 AM ARTIFACTS CONSERVATOR Respiratory Rule Out - RPA 03/17/2024 03/17/2024 1 3:36 PM CDT COVID - 19 04/27/2024 04/27/2024 04/27/2024 2:19 PM ARTIFACTS CONSERVATOR Respiratory Rule-Out 07/24/2024 07/24/2024 025 2:29 PM ARTIFACTS CONSERVATOR COVID - 19 07/24/2024 07/24/2024 07/24/2024 2:29 PM ARTIFACTS CONSERVATOR COVID - 19 08/22/2024 08/22/2024 08/22/2024 11:4 6 PM CDT COVID - 19 09/03/2024 09/03/2024 09/03/2024 12:4 7 PM CDT Assessment Noted Time PHQ-9 Depression Total Score: 1 03/07/20 21 10:29 AM CDT documented as of this encounter Care Teams Quality Improvement Analyst Relationship Specialty Start Date End Date Keith Craft MD PCP - General Family Medicine 01/14/19 12/26/23 Liz Capellan DO [address] [address] PCP - General Family Medicine 12/27/23 Quang Locke DO Gastroenterology 01/18/16 Bri Rollins, RN [place] Solar Project Coordination Specialist 03/07/21 05/22/23 [place] [address] [address] 05/25/21 Bri Rollins, RN [place] Nurse Solar Project Coordination Specialist 03/07/21 05/23/23 Werner Swift MD #2 [place] [address] Consulting Physician Pulmonary Disease 01/30/22 Yasmin Restrepo MD #[address] [phone] Consulting Physician Endocrinology 07/20/24 Jose Do MD #[address] [address] Consulting Physician Colon and Rectal Surgery 10/12/24 documented as of this encounter
--- OUTSIDE RECORDS SUMMARY | 2025-03-23 14:54 | XMS_ITS | Encounter Summary ---
Author Organization [facility] Address [address] [place] [address] Phone Care Team Providers Care Backwinder Name Role Phone Quang Locke Unavailable [phone] Keith Craft MD Primary Care Provider [phone] Bri Rollins RN Unavailable Unavailable Silvio Schulte MD Unavailable [phone] Bri Rollins RN Unavailable Unavailable Werner Swift MD Unavailable Liz Capellan DO Primary Care Provider [phone] Yasmin Restrepo MD Unavailable Jose Do MD Unavailable Reason for Visit * Reason Comments Medication Refill Encounter Details Date Type Department Care Team (Late st Contact Info) Description 07/01/2020 Refill [facility] - [facility] Medicine [facility] #[address] [place] [phone] Yonathan Bonilla MD [address] [place] [address] [address] Medication Refill Social History Tobacco Use Types [...] COVID-19? 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 [facility] Keith Lemus MD Upcoming Appointments Future Appointments In 3 months Keith Craft MD [facility] Medical [facility] - Family Medicine - [place], [facility] SUBSTATION ELECTRICIAN SUPERVISOR - Recent and Past Visits Recent Visits Date Type Provider Dept 06/07/20 Office Visit Keith Craft MD [facility] 04/25/20 Office Visit Keith Craft MD [facility] 02/02/20 Office Visit Keith Craft MD [facility] 11/02/19 Office Visit Keith Craft MD [facility] 07/27/19 Office Visit Keith Craft MD [facility] 06/10/19 Office Visit Brie Denis [facility] [place] 04/20/19 Office Visit [facility] Showing recent visits within past 460 days with a meds authorizing provider and meeting all other requirements Future Appointments No visits were found meeting these conditions. Showing future appointments within next 90 days with a meds authorizing provider and meeting all other requirements UNT SERVICES ASSOCIATE documented in this encounter Plan of Treatment Upcoming Encounters Date Type Department Care Team (Late st Contact Info) Description 04/26/2025 1:30 PM ACCOUNT SERVICES ASSOCIATE Office Visit [facility] Medical [facility] - Pulmonology & Sleep Medicine - [place] #2 [place] [address] Werner Swift MD #2 [place] [address] 05/31/2025 1:20 PM ACCOUNT SERVICES ASSOCIATE Office Visit [facility] - Family Medicine - [place] #2 [place] [address] Liz Capellan, DO [address] [address] 06/02/2025 1:30 PM ACCOUNT SERVICES ASSOCIATE Office Visit [facility] Medical [facility] - Endocrinology - [place] #2 [facility] [place] [address] Yasmin Restrepo MD #[address] [address] documented as of this encounter Visit Diagnoses Diagnosis Anxiety and depression Dysthymic disorder documented in this encounter Additional Health Concerns Infection Onset Date Last Indicated Resolved Time COVID - 19 01/25/2021 01/25/2021 01/31/2021 8:10 AM CDT Respiratory Rule Out - RPA 01/30/2021 01/30/2021 0 02/01/2021 12:45 AM CDT COVID - 19 07/23/2021 07/23/2021 07/24/2021 6:31 AM ACCOUNT SERVICES ASSOCIATE COVID - 19 10/19/2021 10/19/2021 10/20/2021 7:45 AM CDT Respiratory Rule Out - RPA 10/19/2021 10/19/2021 0 10/20/2021 2:10 PM CDT Stenotrophomonas maltophilia Comment:Must have a follow up respiratory sample to remove isolation/infection flag. 10/20/2021 10/20/2021 COVID - 19 04/20/2022 04/20/2022 04/30/2022 12:1 8 AM ACCOUNT SERVICES ASSOCIATE COVID - 19 07/18/2022 07/18/2022 07/28/2022 12:1 6 AM ACCOUNT SERVICES ASSOCIATE COVID - 19 08/21/2022 08/21/2022 08/22/2022 8:31 AM CDT Respiratory Rule Out - RPA 08/21/2022 08/21/2022 0 08/22/2022 3:21 PM CDT COVID - 19 04/18/2023 04/18/2023 04/28/2023 12:1 6 AM ACCOUNT SERVICES ASSOCIATE COVID - 19 07/13/2023 07/13/2023 07/23/2023 12:1 6 AM ACCOUNT SERVICES ASSOCIATE Respiratory Rule Out - RPA 03/17/2024 03/17/2024 1 3:36 PM CDT COVID - 19 04/27/2024 04/27/2024 04/27/2024 2:19 PM ACCOUNT SERVICES ASSOCIATE Respiratory Rule-Out 07/24/2024 07/24/2024 025 2:29 PM ACCOUNT SERVICES ASSOCIATE COVID - 19 07/24/2024 07/24/2024 07/24/2024 2:29 PM ACCOUNT SERVICES ASSOCIATE COVID - 19 08/22/2024 08/22/2024 08/22/2024 11:4 6 PM CDT COVID - 19 09/03/2024 09/03/2024 09/03/2024 12:4 7 PM CDT Assessment Noted Time PHQ-9 Depression Total Score: 2 06/07/19 21 2:34 PM ACCOUNT SERVICES ASSOCIATE documented as of this encounter Care Teams Backwinder Relationship Specialty Start Date End Date Keith Craft MD PCP - General Family Medicine 01/14/19 12/26/23 Liz Capellan DO [address] [id number] PCP - General Family Medicine 12/27/23 Quang Locke DO Gastroenterology 01/18/16 Bri Rollins, RN [place] Gel Coat Sprayer 03/07/21 05/22/23 [place] [address] [address] 05/25/21 Bri Rollins, RN [place] Nurse Gel Coat Sprayer 03/07/21 05/23/23 Werner Swift MD #2 [place] [address] Consulting Physician Pulmonary Disease 01/30/22 Yasmin Restrepo MD #[address] [address] Consulting Physician Endocrinology 07/20/24 Jose Do MD #[address] [address] Consulting Physician Colon and Rectal Surgery 10/12/24 documented as of this encounter
--- OUTSIDE RECORDS SUMMARY | 2025-03-23 14:54 | XMS_ITS | Encounter Summary ---
Author Organization [facility] Address [address] [place] [address] Phone Care Team Providers Care Java Application Developer Name Role Phone Quang Locke Unavailable [phone] Keith Craft MD Primary Care Provider [phone] Bri Rollins RN Unavailable Unavailable Silvio Schulte MD Unavailable [phone] Bri Rollins RN Unavailable Unavailable Werner Swift MD Unavailable Liz Capellan DO Primary Care Provider [phone] Yasmin Restrepo MD Unavailable Jose Do MD Unavailable Reason for Visit * Reason Comments Medication Refill Encounter Details Date Type Department Care Team (Late st Contact Info) Description 05/09/2020 Refill [facility] #2 [place] [address] Keith Craft MD #1 [place], [place] [id number] Medication Refill Social History Tobacco Use Types [...] COVID-19? No / Unsure 04/25/2020 1:42 PM PROTOTYPE ASSEMBLER ELECTRONICS documented as of this encounter Miscellaneous Notes [...] upper lobe due to infectious organism [facility] - Keith Jenkins MD 3 months ago Acute non-recurrent maxillary sinusitis [facility] Keith Lemus MD 6 months ago Chronic prescription opiate use [facility] Keith Jenkins MD 9 months ago Coronary artery disease involving [place] coronary artery of [place] heart without angina pectoris [facility] Keith Lemus MD 11 months ago COPD exacerbation (HCC) [facility] - Brie Castano, PAC Upcoming Appointments Future Appointments In 4 weeks Keith Craft MD [facility] Family Medicine [facility] FLUTE TEACHER - Recent and Past Visits Recent Visits Date Type Provider Dept 04/25/20 Office Visit Keith Craft MD [facility] 02/02/20 Office Visit Keith Craft MD [facility] 11/02/19 Office Visit Keith Craft MD [facility] 07/27/19 Office Visit Keith Craft MD [facility] 06/10/19 [facility] Showing recent visits within past 460 days with a meds authorizing provider and meeting all other requirements Future Appointments Date Type Provider Dept 06/07/20 Appointment Keith Craft MD [facility] Showing future appointments within next 90 days with a meds authorizing provider and meeting all other requirements Passed - Last BP in normal range BP Readings from Last 1 Encounters: 04/25/20 104/62 OTYPE ASSEMBLER ELECTRONICS documented in this encounter Plan of Treatment Upcoming Encounters Date Type Department Care Team (Late st Contact Info) Description 04/26/2025 1:30 PM PROTOTYPE ASSEMBLER ELECTRONICS Office Visit [facility] - Pulmonology & Sleep Medicine - [place] [address] [place] [address] Werner Swift MD #2 [place] [address] 05/31/2025 1:20 PM PROTOTYPE ASSEMBLER ELECTRONICS Office Visit [facility] Family Medicine - [place] [address] [place] [address] Liz Capellan, DO [address] [address] 06/02/2025 1:30 PM PROTOTYPE ASSEMBLER ELECTRONICS Office Visit [facility] - Endocrinology - [place] [address] [place] [address] Yasmin Restrepo MD [address] [place] [address] [phone] documented as of this encounter Visit Diagnoses [...] - 19 07/23/2021 07/23/2021 07/24/2021 6:31 AM PROTOTYPE ASSEMBLER ELECTRONICS COVID - 19 10/19/2021 10/19/2021 10/20/2021 7:45 AM CDT Respiratory Rule Out - RPA 10/19/2021 10/19/2021 0 10/20/2021 2:10 PM CDT Stenotrophomonas maltophilia Comment:Must have a follow up respiratory sample to remove isolation/infection flag. 10/20/2021 10/20/2021 COVID - 19 04/20/2022 04/20/2022 04/30/2022 12:1 8 AM PROTOTYPE ASSEMBLER ELECTRONICS COVID - 19 07/18/2022 07/18/2022 07/28/2022 12:1 6 AM PROTOTYPE ASSEMBLER ELECTRONICS COVID - 19 08/21/2022 08/21/2022 08/22/2022 8:31 AM CDT Respiratory Rule Out - RPA 08/21/2022 08/21/2022 0 08/22/2022 3:21 PM CDT COVID - 19 04/18/2023 04/18/2023 04/28/2023 12:1 6 AM PROTOTYPE ASSEMBLER ELECTRONICS COVID - 19 07/13/2023 07/13/2023 07/23/2023 12:1 6 AM PROTOTYPE ASSEMBLER ELECTRONICS Respiratory Rule Out - RPA 03/17/2024 03/17/2024 1 3:36 PM CDT COVID - 19 04/27/2024 04/27/2024 04/27/2024 2:19 PM PROTOTYPE ASSEMBLER ELECTRONICS Respiratory Rule-Out 07/24/2024 07/24/2024 025 2:29 PM PROTOTYPE ASSEMBLER ELECTRONICS COVID - 19 07/24/2024 07/24/2024 07/24/2024 2:29 PM PROTOTYPE ASSEMBLER ELECTRONICS COVID - 19 08/22/2024 08/22/2024 08/22/2024 11:4 6 PM CDT COVID - 19 09/03/2024 09/03/2024 09/03/2024 12:4 7 PM CDT Assessment Noted Time PHQ-9 Depression Total Score: 1 06/10/19 20 1:03 PM PROTOTYPE ASSEMBLER ELECTRONICS documented as of this encounter Care Teams Java Application Developer Relationship Specialty Start Date End Date Keith Craft MD PCP - General Family Medicine 01/14/19 12/26/23 Liz Capellan DO [address] [address] PCP - General Family Medicine 12/27/23 Quang Locke DO Gastroenterology 01/18/16 Bri Rollins RN [place] Silk Conditioner 03/07/21 05/22/23 [place] [id number] [address] 05/25/21 Bri Rollins RN [place] Nurse Silk Conditioner 03/07/21 05/23/23 Wernre Swift MD #2 [place] [address] Consulting Physician Pulmonary Disease 01/30/22 Yasmin Restrepo MD #[address] [address] Consulting Physician Endocrinology 07/20/24 Jose Do MD #[address] [address] Consulting Physician Colon and Rectal Surgery 10/12/24 documented as of this encounter
--- OUTSIDE RECORDS SUMMARY | 2025-03-23 14:54 | XMS_ITS | Encounter Summary ---
Author Organization [facility] Address [address] [place] [address] Phone Care Team Providers Care Leather Sponger Name Role Phone Quang Locke Oswaldo PRESLEY Unavailable [phone] Silvio Schulte MD Unavailable [phone] Werner Swift MD Unavailable Liz Capellan DO Primary Care Provider Yasmin Restrepo MD Unavailable Jose Do MD Unavailable Encounter Details Date Type Department Care Team (Late st Contact Info) Description 03/04/2025 Results Follow-Up [facility] - Family Medicine [facility] [address]2 [place] [phone] Liz Capellan DO [address] [address] XR CHEST 2 VIEWS Social History Tobacco [...] declined 10/05/2024 How often do you attend congregation or christian serv ices? Patient declined 10/05/2024 Do you [...] Total Score - Questions 1-9 0 10/25 [facility] - Occupational Stress Questionnaire Answer [...] in a alf (including now)? No 07/13/2023 Housing Stability Vital Sign Answer Richar e Recorded In the last 12 months, was t here a time when you were not able to pay the mortgage or rent on time? No 10/05/2024 In the past 12 months, how m any times have you moved where you were living? 1 10/05/2024 At any time in the past 12 m [facility], were you homeless or living in a alf (including now)? No 10/05/2024 Social Connection and Isolation Panel Answer Date Recorded In a typical week, how many times do you talk on the phone with family, friends, or neighbors? Patient declined 12/14/2024 How often do you get togethe r with friends or relatives? Patient declined 12/14/2024 How often do you attend congregation or christian serv ices? Patient declined 12/14/2024 Do you [...] medical care, and heating? Patient declined 12/14/2024 [facility] - Occupational Stress Questionnaire Answer [...] any time in the past 12 m [facility], were you homeless or living in a alf (including now)? Patient declined 12/14/[address] [facility] Utilities [...] st Contact Info) Description 04/26/2025 1:30 PM MANIFEST CLERK Office Visit [facility] - Pulmonology & Sleep Medicine - [place] #2 [place] [address] Werner Swift MD #2 [place] [address] 05/31/2025 1:20 PM MANIFEST CLERK Office Visit [facility] Medical [facility] - Family Medicine - [place] [address]2 [place] [address] Liz Capellan, DO 2 [facility] [address] [place] [address] 06/02/2025 1:30 PM MANIFEST CLERK Office Visit [facility] - Endocrinology - [place] [address]2 [place] [address] Yasmin Restrepo MD #[address] [address] documented as of this encounter Goals Goal [...] Zones/Action plan education. I will notify my Master Ship if my symptoms fall in the y ellow zone . I will consider receiving an influenza and pneumonia vaccination, if applicable. -I will call the office if I experience any symptoms listed above to discuss at home management options. Help patient manage COPD Care Plan [facility] COPD CONCERN No Liz Capellan DO Help patient manage systolic heart failure Care Plan [facility] HEART FAILURE CONCERNS No Liz Capellan DO Help patients manage type 2 diabetes Care Plan [facility] TYPE 2 DIABETES CONCERN No Liz Capellan DO Help patient manage blood glucose Care Plan [facility] TYPE 2 DIABETES INSULIN - ANALOG PATTERN CONCERN No Liz Capellan DO documented as of this encounter Visit Diagnoses Not on filedocumented in this encounter Additional Health Concerns Active Problems Noted Date Diagnosed Date [facility] COPD CONCERN 11/09/2024 [facility] HEART FAILURE CONCERNS 11/09/2024 [facility] TYPE 2 DIABETES CONCERN 11/09/2024 [facility] TYPE 2 DIABETES INSULIN - ANALOG PATTERN CO NCERN 11/09/2024 Infection Onset Date Last Indicated Resolved Time Stenotrophomonas maltophilia Comment:Must have a follow up respiratory sample to remove isolation/infection flag. 10/20/2021 10/20/2021 Assessment Noted Time PHQ-9 Depression Total Score: 0 11/10/19 25 11:00 AM CDT documented as of this encounter Care Teams Leather Sponger Relationship Specialty Start Date End Date Liz Capellan DO 2 [facility] [address] [address] PCP - General Family Medicine 12/27/23 Quang Locke DO Gastroenterology 01/18/16 [place] [address] [address] 05/25/21 Werner Swift MD #2 [place] [address] Consulting Physician Pulmonary Disease 01/30/22 Yasmin Restrepo MD #[address] [address] Consulting Physician Endocrinology 07/20/24 Jose Do MD #[address] [phone] Consulting Physician Colon and Rectal Surgery 10/12/24 documented as of this encounter
--- OUTSIDE RECORDS SUMMARY | 2025-03-23 14:54 | XMS_ITS | Encounter Summary ---
Author Organization [facility] Address [address] [place] [address] Phone Care Team Providers Care Hand Sample Maker Name Role Phone Quang Locke Unavailable [phone] Keith Craft MD Primary Care Provider [phone] Bri Rollins RN Unavailable Unavailable Silvio Schulte MD Unavailable [phone] Bri Rollins RN Unavailable Unavailable Werner Swift MD Unavailable Liz Capellan DO Primary Care Provider [phone] Yasmin Restrepo MD Unavailable Jose Do MD Unavailable Reason for Visit * Reason Comments Medication Refill Encounter Details Date Type Department Care Team (Late st Contact Info) Description 11/06/2021 Refill [facility] #2 [place] [address] Keith Craft MD [address]1 [place] [address] Medication Refill Social History Tobacco [...] NICOLE [facility] 08/14/21 Office Visit Keith Crfat MD [facility] 07/31/21 Office Visit Keith [facility] MD [facility] 05/25/21 Office Visit Marcin Anderson, COTTON WASHER, DIRECTOR OF HEMOPHILIA [facility] 05/05/21 Office Visit Brie Denis, PAC [facility] 04/14/21 [facility]/23[facility]21 Office Visit Keith [facility] Showing recent visits within past 365 days and meeting all other requirements Future Appointments Date Type Provider Dept 12/19/21 Appointment Keith Craft MD [facility] Showing future appointments within next 90 days and meeting all other requirements documented in this encounter Plan of Treatment Upcoming Encounters Date Type Department Care Team (Late st Contact Info) Description 04/26/2025 1:30 PM BEVERAGE INSPECTION MACHINE TENDER Office Visit [facility] Medical [facility] - Pulmonology & Sleep Medicine - [place] #2 [place] [address] Werner Swift MD #2 [place] [address] 05/31/2025 1:20 PM BEVERAGE INSPECTION MACHINE TENDER Office Visit [facility] - Family Medicine - [place] [address] [place] [address] Liz Capellan, DO [address] [address] 06/02/2025 1:30 PM BEVERAGE INSPECTION MACHINE TENDER Office Visit [facility] - Endocrinology - [place] [address] [place] [address] Yasmin Restrepo MD #[address] [phone] documented as of this encounter Goals Goal [...] Zones/Action plan education. I will notify my Oral And Maxillofacial Surgeon if my symptoms fall in the y [...] 19 04/20/2022 04/20/2022 04/30/2022 12:1 8 AM BEVERAGE INSPECTION MACHINE TENDER COVID - 19 07/18/2022 07/18/2022 07/28/2022 12:1 6 AM BEVERAGE INSPECTION MACHINE TENDER COVID - 19 08/21/2022 08/21/2022 08/22/2022 8:31 AM CDT Respiratory Rule Out - RPA 08/21/2022 08/21/2022 0 08/22/2022 3:21 PM CDT COVID - 19 04/18/2023 04/18/2023 04/28/2023 12:1 6 AM BEVERAGE INSPECTION MACHINE TENDER COVID - 19 07/13/2023 07/13/2023 07/23/2023 12:1 6 AM BEVERAGE INSPECTION MACHINE TENDER Respiratory Rule Out - RPA 03/17/2024 03/17/2024 1 3:36 PM CDT COVID - 19 04/27/2024 04/27/2024 04/27/2024 2:19 PM BEVERAGE INSPECTION MACHINE TENDER Respiratory Rule-Out 07/24/2024 07/24/2024 025 2:29 PM BEVERAGE INSPECTION MACHINE TENDER COVID - 19 07/24/2024 07/24/2024 07/24/2024 2:29 PM BEVERAGE INSPECTION MACHINE TENDER COVID - 19 08/22/2024 08/22/2024 08/22/2024 11:4 6 PM CDT COVID - 19 09/03/2024 09/03/2024 09/03/2024 12:4 7 PM CDT Assessment Noted Time PHQ-9 Depression Total Score: 1 03/07/20 10:29 AM CDT documented as of this encounter Care Teams Hand Sample Maker Relationship Specialty Start Date End Date Keith Craft MD PCP - General Family Medicine 01/14/19 12/26/23 Liz Capellan DO [address] [address] PCP - General Family Medicine 12/27/23 Quang Locke DO Gastroenterology 01/18/16 Bri Rollins RN [place] Oral And Maxillofacial Surgeon 03/07/21 05/22/23 [place] [address] [address] 05/25/21 Rollins, Bri M, RN [place] Nurse Oral And Maxillofacial Surgeon 03/07/21 05/23/23 Werner Swift MD #2 [place] [address] Consulting Physician Pulmonary Disease 01/30/22 Yasmin Restrepo MD #[address] [phone] Consulting Physician Endocrinology 07/20/24 Jose Do MD #[address] [address] Consulting Physician Colon and Rectal Surgery 10/12/24 documented as of this encounter
--- OUTSIDE RECORDS SUMMARY | 2025-03-23 14:54 | XMS_ITS | Encounter Summary ---
Author Organization [facility] Address [address] [place] [address] Phone Care Team Providers Care Side Stitching Machine Operator Name Role Phone Quang Locke Unavailable [phone] Keith Craft MD Primary Care Provider Bri Rollins RN Unavailable Unavailable Silvio Schulte MD Unavailable Bri Rollins RN Unavailable Unavailable Werner Swift MD Unavailable Liz Capellan DO Primary Care Provider [phone] Yasmin Restrepo MD Unavailable Jose Do MD Unavailable Reason for Visit * Reason Comments Medication Refill Encounter Details Date Type Department Care Team (Late st Contact Info) Description 11/16/2021 Refill [facility] Family Medicine [facility] #2 [place] [address] Keith Craft MD #1 [place] [address] Medication Refill Social History Tobacco [...] st Contact Info) Description 04/26/2025 1:30 PM ORACLE FUSION DEVELOPER Office Visit [facility] - Pulmonology & Sleep Medicine [facility] #2 [place] [address] Werner Swift MD #2 [place] [phone] 05/31/2025 1:20 PM ORACLE FUSION DEVELOPER [facility] Visit [facility] - Family Medicine - [place] #2 [place] [address] Liz Capellan, DO [address] [address] 06/02/2025 1:30 PM ORACLE FUSION DEVELOPER Office Visit [facility] Medical Group - Endocrinology - [place] #2 [place] [address] Yasmin Restrepo MD #[address] [phone] documented as of this encounter Goals Goal [...] Zones/Action plan education. I will notify my Rework Machine Operator if my symptoms fall in [...] 04/20/2022 04/20/2022 04/30/2022 12:1 8 AM ORACLE FUSION DEVELOPER COVID - 19 07/18/2022 07/18/2022 07/28/2022 12:1 6 AM ORACLE FUSION DEVELOPER COVID - 19 08/21/2022 08/21/2022 08/22/2022 8:31 AM CDT Respiratory Rule Out - RPA 08/21/2022 08/21/2022 0 08/22/2022 3:21 PM CDT COVID - 19 04/18/2023 04/18/2023 04/28/2023 12:1 6 AM ORACLE FUSION DEVELOPER COVID - 19 07/13/2023 07/13/2023 07/23/2023 12:1 6 AM ORACLE FUSION DEVELOPER Respiratory Rule Out - RPA 03/17/2024 03/17/2024 1 3:36 PM CDT COVID - 19 04/27/2024 04/27/2024 04/27/2024 2:19 PM ORACLE FUSION DEVELOPER Respiratory Rule-Out 07/24/2024 07/24/2024 025 2:29 PM ORACLE FUSION DEVELOPER COVID - 19 07/24/2024 07/24/2024 07/24/2024 2:29 PM ORACLE FUSION DEVELOPER COVID - 19 08/22/2024 08/22/2024 08/22/2024 [...] 01/14/19 12/26/23 Liz Capellan DO [address] [address] PCP - General Family Medicine 12/27/23 Quang Locke DO Gastroenterology 01/18/16 Bri Rollins RN [place] Rework Machine Operator 03/07/21 05/22/23 [place] [address] [address] 05/25/21 Bri Rollins, RN [place] Nurse Rework Machine Operator 03/07/21 05/23/23 Werner Swift MD #2 [place] [address] Consulting Physician Pulmonary Disease 01/30/22 Yasmin Restrepo MD #[address] [address] Consulting Physician Endocrinology 07/20/24 Jose Do MD #[address] [address] Consulting Physician Colon and Rectal Surgery 10/12/24 documented as of this encounter
--- OUTSIDE RECORDS SUMMARY | 2025-03-23 14:54 | XMS_ITS | Encounter Summary ---
Author Organization [facility] Address [address] [place] [address] Phone Care Team Providers Care Dental Chair Assembler Name Role Phone Quang Locke Unavailable [phone] Keith Craft MD Primary Care Provider [phone] Bri Rollins RN Unavailable Unavailable Silvio Schulte MD Unavailable [phone] Bri Rollins RN Unavailable Unavailable Werner Swift MD Unavailable Liz Capellan DO Primary Care Provider [phone] Yasmin Restrepo MD Unavailable Jose Do MD Unavailable Reason for Visit * Reason Comments Medication Refill Encounter Details Date Type Department Care Team (Late st Contact Info) Description 11/22/2021 Refill [facility] Medical [address] [place] [address] Keith Craft MD #1 [place] [address] Medication Refill Social History Tobacco Use Types [...] st Contact Info) Description 04/26/2025 1:30 PM DIRECTOR GLOBAL Office Visit [facility] - Pulmonology & Sleep Medicine [facility] #2 [place] [address] Werner Swift MD #2 [place] [address] 05/31/2025 1:20 PM DIRECTOR GLOBAL Office Visit [facility] - Family Medicine - [place] #2 [place] [address] Liz Capellan, DO 2 [facility]. [address] [place] [address] 06/02/2025 1:30 PM DIRECTOR GLOBAL Office Visit [facility] - Endocrinology - [place] [address] [place] [address] Yasmin Restrepo MD #[address] [place] [address] [address] documented as of this encounter Goals Goal [...] plan education. I will notify my Freelance Digital Project Manager if my symptoms fall in the [...] 04/20/2022 04/20/2022 04/30/2022 12:1 8 AM DIRECTOR GLOBAL COVID - 19 07/18/2022 07/18/2022 07/28/2022 12:1 6 AM DIRECTOR GLOBAL COVID - 19 08/21/2022 08/21/2022 08/22/2022 8:31 AM CDT Respiratory Rule Out - RPA 08/21/2022 08/21/2022 0 08/22/2022 3:21 PM CDT COVID - 19 04/18/2023 04/18/2023 04/28/2023 12:1 6 AM DIRECTOR GLOBAL COVID - 19 07/13/2023 07/13/2023 07/23/2023 12:1 6 AM DIRECTOR GLOBAL Respiratory Rule Out - RPA 03/17/2024 03/17/2024 1 3:36 PM CDT COVID - 19 04/27/2024 04/27/2024 04/27/2024 2:19 PM DIRECTOR GLOBAL Respiratory Rule-Out 07/24/2024 07/24/2024 025 2:29 PM DIRECTOR GLOBAL COVID - 19 07/24/2024 07/24/2024 07/24/2024 2:29 PM DIRECTOR GLOBAL COVID - 19 08/22/2024 08/22/2024 08/22/2024 11:4 6 PM CDT COVID - 19 09/03/2024 09/03/2024 09/03/2024 12:4 7 PM CDT Assessment Noted Time PHQ-9 Depression Total Score: 1 03/07/20 21 10:29 AM CDT documented as of this encounter Care Teams Dental Chair Assembler Relationship Specialty Start Date End Date Keith Craft MD PCP - General Family Medicine 01/14/19 12/26/23 Liz Capellan DO [address] [address] PCP - General Family Medicine 12/27/23 Quang Locke DO Gastroenterology 01/18/16 Bri Rollins, RN [place] Freelance Digital Project Manager 03/07/21 05/22/23 [place] [address] [address] 05/25/21 Bri Rollins RN [place] Nurse Freelance Digital Project Manager 03/07/21 05/23/23 Werner Swift MD #2 [place] [phone] Consulting Physician Pulmonary Disease 01/30/22 Yasmin Restrepo MD #[address] [phone] Consulting Physician Endocrinology 07/20/24 Jose Do MD #[address] [address] Consulting Physician Colon and Rectal Surgery 10/12/24 documented as of this encounter
--- OUTSIDE RECORDS SUMMARY | 2025-03-23 14:54 | XMS_ITS | Encounter Summary ---
Author Organization [facility] Address [address] [place] [address] Phone Care Team Providers Care Pie Filler Name Role Phone Quang Locke Unavailable [phone] Keith Craft MD Primary Care Provider [phone] Bri Rollins RN Unavailable Unavailable Silvio Schulte MD Unavailable [phone] Bri Rollins RN Unavailable Unavailable Werner Swift MD Unavailable Liz Capellan DO Primary Care Provider [phone] Yasmin Restrepo MD Unavailable Jose Do MD Unavailable Reason for Visit * Reason Onset Date Comments Medication Refill 05/11/2020 Encounter Details Date Type Department Care Team (Late st Contact Info) Description 05/11/2020 Refill [facility] [address] [place] [address] Keith Craft MD [address] [place] [address] Medication Refill Social History Tobacco [...] COVID-19? No / Unsure 04/25/2020 1:42 PM TANK WELDER documented as of this encounter Miscellaneous Notes [...] right upper lobe due to infectious organism [facility] - Keith Jenkins MD 3 months ago Acute non-recurrent maxillary sinusitis [facility] - Keith Jenkins MD 6 months ago Chronic prescription opiate use [facility] Keith Lemus MD 9 months ago Coronary artery disease involving [place] coronary artery of [place] heart without angina pectoris [facility] Keith Lemus MD 11 months ago COPD exacerbation (HCC) [facility] - Brie Castano, PAC Upcoming Appointments Future Appointments In [address] [facility] SEN[facility] - Recent and Past Visits Recent [...] authorizing provider and meeting all other requirements WELDER * Telephone Encounter - Missy Mcdonough - 05/11/2020 8:23 AM CST Received: []FAX [x]TELEPHONE CALL []MYCHART from: []PHARMACY [x]PATIENT/OTHER regarding medication management. Medication name and dose: Requested Prescriptions Pending Prescriptions Disp Refills ??? HYDROcodone-acetaminophen (NORCO) 5-325 MG Tablet 30 Tab 0 Sig: Take 1 Tab by mouth daily. Quantity: (30 day, 90 day, 3 monthly scripts) 30 Pharmacy preference for this medication: [facility]/pharmacy #[id number] Outcome: [x]Medication pended, routed to surescripts []Medication refused []Informed caller of refills at pharmacy []Additional message to medication management RN []Verbal authorization for written order to pharmacy []Additional message to provider []Verified medication with pharmacy Missy Medication Management WELDER documented in this encounter Plan of Treatment Upcoming Encounters Date Type Department Care Team (Late st Contact Info) Description 04/26/2025 1:30 PM TANK WELDER Office Visit [facility] Medical [facility] - Pulmonology & Sleep Medicine - [place] [address] [place] [address] Werner Swift MD #2 [facility] [place] [address] 05/31/2025 1:20 PM TANK WELDER Office Visit [facility] Medical [facility] - Family Medicine - [place] [address] [place] [address] iLz Capellan, DO [address] [address] 06/02/2025 1:30 PM TANK WELDER Office Visit [facility] Medical [facility] - Endocrinology - [place] [address] [place] [address] Yasmin Restrepo MD #[address] [address] documented as of this encounter Visit Diagnoses [...] - 19 07/23/2021 07/23/2021 07/24/2021 6:31 AM TANK WELDER COVID - 19 10/19/2021 10/19/2021 10/20/2021 7:45 AM CDT Respiratory Rule Out - RPA 10/19/2021 10/19/2021 0 10/20/2021 2:10 PM CDT Stenotrophomonas maltophilia Comment:Must have a follow up respiratory sample to remove isolation/infection flag. 10/20/2021 10/20/2021 COVID - 19 04/20/2022 04/20/2022 04/30/2022 12:1 8 AM TANK WELDER COVID - 19 07/18/2022 07/18/2022 07/28/2022 12:1 6 AM TANK WELDER COVID - 19 08/21/2022 08/21/2022 08/22/2022 8:31 AM CDT Respiratory Rule Out - RPA 08/21/2022 08/21/2022 0 08/22/2022 3:21 PM CDT COVID - 19 04/18/2023 04/18/2023 04/28/2023 12:1 6 AM TANK WELDER COVID - 19 07/13/2023 07/13/2023 07/23/2023 12:1 6 AM TANK WELDER Respiratory Rule Out - RPA 03/17/2024 03/17/2024 1 3:36 PM CDT COVID - 19 04/27/2024 04/27/2024 04/27/2024 2:19 PM TANK WELDER Respiratory Rule-Out 07/24/2024 07/24/2024 025 2:29 PM TANK WELDER COVID - 19 07/24/2024 07/24/2024 07/24/2024 2:29 PM TANK WELDER COVID - 19 08/22/2024 08/22/2024 08/22/2024 11:4 6 PM CDT COVID - 19 09/03/2024 09/03/2024 09/03/2024 12:4 7 PM CDT Assessment Noted Time PHQ-9 Depression Total Score: 1 06/10/19 20 1:03 PM TANK WELDER documented as of this encounter Care Teams Pie Filler Relationship Specialty Start Date End Date Keith Craft MD PCP - General Family Medicine 01/14/19 12/26/23 Liz Capellan DO [address] [address] PCP - General Family Medicine 12/27/23 Quang Locke DO Gastroenterology 01/18/16 Bri Rollins, RN [place] Sample Driller 03/07/21 05/22/23 [place] [id number] [address] 05/25/21 Bri Rollins, KATEY [place] Nurse Sample Driller 03/07/21 05/23/23 Werner Swift MD [address] [place] [address] Consulting Physician Pulmonary Disease 01/30/22 Yasmin Restrepo MD #[address] [address] Consulting Physician Endocrinology 07/20/24 Jose Do MD #[address] [id number] Consulting Physician Colon and Rectal Surgery 10/12/24 documented as of this encounter
--- OUTSIDE RECORDS SUMMARY | 2025-03-23 14:54 | XMS_ITS | Encounter Summary ---
Author Organization [facility] Address [address] [place] [address] Phone Care Team Providers Care Gold Charmer Name Role Phone Quang Locke Unavailable [phone] Keith Craft MD Primary Care Provider [phone] Bri Rollins RN Unavailable Unavailable Silvio Schulte MD Unavailable [phone] Bri Rollins RN Unavailable Unavailable Werner Swift MD Unavailable Liz Capellan DO Primary Care Provider [phone] Yasmin Restrepo MD Unavailable Jose Do MD Unavailable Reason for Visit * Reason Comments Medication Refill Encounter Details Date Type Department Care Team (Late st Contact Info) Description 04/17/2020 Refill [facility] [address] [place] [address] Keith Craft MD [address] [place], [place] [id number] Medication Refill Social History Tobacco Use Types [...] 2 months ago Acute non-recurrent maxillary sinusitis [facility] Keith Lemus MD 5 months ago Chronic prescription opiate use [facility] Keith Lemus MD 8 months ago 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 [facility] Keith Lemus MD 10 months ago COPD exacerbation (HCC) [facility] Brie Vieira PAC 12 months ago Type 2 diabetes mellitus with diabetic neuropathy, with long-term current use of insulin (HCC) [facility] Keith Lemus MD Upcoming Appointments Future Appointments In 1 month Keith Craft MD [facility] [employer] - Recent and Past Visits Recent Visits Date Type Provider Dept 02/02/20 Office Visit Keith Craft MD [facility] 11/02/19 Office Visit Keith Craft MD [facility] 07/27/19 Office Visit Keith Craft MD [facility] 06/10/19 [facility] 04/20/19 Office Visit Keith Craft MD [facility] 01/14/19 [facility] 2 months ago Acute non-recurrent maxillary sinusitis [facility] Keith Lemus MD 5 months ago Chronic prescription opiate use [facility] Keith Lemus MD 8 months ago 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 [facility] Keith Lemus MD 10 months ago COPD exacerbation (HCC) [facility] Brie Castano PAC 12 months ago Type 2 diabetes mellitus with diabetic neuropathy, with long-term current use of insulin (HCC) [facility] Keith Lemus MD Upcoming Appointments Future Appointments In 1 month Keith Craft MD [facility] Maximiliano Tesfaye [facility] DIRECTOR [employer] - Recent and Past Visits Recent [...] 2 months ago Acute non-recurrent maxillary sinusitis [facility] Keith Lemus MD 5 months ago Chronic prescription opiate use [facility] Keith Lemus MD 8 months ago 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 [facility] Keith Lemus MD 10 months ago COPD exacerbation (HCC) [facility] Brie Vieira PAC 12 months ago Type 2 diabetes mellitus with diabetic neuropathy, with long-term current use of insulin (HCC) [facility] Keith Lemus MD Upcoming Appointments Future Appointments In 1 month Keith Craft MD [facility] Maximiliano Tesfaye [facility] DIRECTOR [employer] - Recent and Past Visits Recent Visits Date Type Provider Dept 02/02/20 Office Visit Keith Craft MD [facility] 11/02/19 [facility] Office Visit Keith Craft MD [facility] 06/10/19 [facility] 04/20[facility]19 Office Visit Keith Craft MD [facility] 01/14/19 Office Visit [facility] Show[facility] recent visits within past 460 days with a meds authorizing provider and meeting all other requirements Future Appointments Date Type Provider Dept 06/07/20 Appointment Keith Craft MD [facility] Showing future appointments within next 90 days with a meds authorizing provider and meeting all other requirements K SKETCH ARTIST documented in this encounter Plan of Treatment Upcoming Encounters Date Type Department Care Team (Late st Contact Info) Description 04/26/2025 1:30 PM QUICK SKETCH ARTIST Office Visit [facility] Medical [facility] - Pulmonology & Sleep Medicine - [place] [address] [place] [address] Werner Swift MD [address] [place] [address] 05/31/2025 1:20 PM QUICK SKETCH ARTIST Office Visit [facility] Medical [facility] - Family Medicine - [place] [address] [place] [address] Liz Capellan, DO [address] [address] 06/02/2025 1:30 PM QUICK SKETCH ARTIST Office Visit [facility] - Endocrinology - [place] [address] [place] [address] Yasmin Restrepo MD #[address] [phone] documented as of this encounter Visit Diagnoses [...] - 19 07/23/2021 07/23/2021 07/24/2021 6:31 AM QUICK SKETCH ARTIST COVID - 19 10/19/2021 10/19/2021 10/20/2021 7:45 AM CDT Respiratory Rule Out - RPA 10/19/2021 10/19/2021 0 10/20/2021 2:10 PM CDT Stenotrophomonas maltophilia Comment:Must have a follow up respiratory sample to remove isolation/infection flag. 10/20/2021 10/20/2021 COVID - 19 04/20/2022 04/20/2022 04/30/2022 12:1 8 AM QUICK SKETCH ARTIST COVID - 19 07/18/2022 07/18/2022 07/28/2022 12:1 6 AM QUICK SKETCH ARTIST COVID - 19 08/21/2022 08/21/2022 08/22/2022 8:31 AM CDT Respiratory Rule Out - RPA 08/21/2022 08/21/2022 0 08/22/2022 3:21 PM CDT COVID - 19 04/18/2023 04/18/2023 04/28/2023 12:1 6 AM QUICK SKETCH ARTIST COVID - 19 07/13/2023 07/13/2023 07/23/2023 12:1 6 AM QUICK SKETCH ARTIST Respiratory Rule Out - RPA 03/17/2024 03/17/2024 1 3:36 PM CDT COVID - 19 04/27/2024 04/27/2024 04/27/2024 2:19 PM QUICK SKETCH ARTIST Respiratory Rule-Out 07/24/2024 07/24/2024 025 2:29 PM QUICK SKETCH ARTIST COVID - 19 07/24/2024 07/24/2024 07/24/2024 2:29 PM QUICK SKETCH ARTIST COVID - 19 08/22/2024 08/22/2024 08/22/2024 11:4 6 PM CDT COVID - 19 09/03/2024 09/03/2024 09/03/2024 12:4 7 PM CDT Assessment Noted Time PHQ-9 Depression Total Score: 1 06/10/19 20 1:03 PM QUICK SKETCH ARTIST documented as of this encounter Care Teams Gold Charmer Relationship Specialty Start Date End Date Keith Craft MD PCP - General Family Medicine 01/14/19 12/26/23 Liz Capellan DO [address] [id number] PCP - General Family Medicine 12/27/23 Quang Locke DO Gastroenterology 01/18/16 Bri Rollins, RN [place] Inspector Repairer Sandstone 03/07/21 05/22/23 [place] [id number] [address] 05/25/21 Bri Rollins, RN [place] Nurse Inspector Repairer Sandstone 03/07/21 05/23/23 Werner Swift MD [address] [place] [address] Consulting Physician Pulmonary Disease 01/30/22 Yasmin Restrepo MD #[address] [phone] Consulting Physician Endocrinology 07/20/24 Jose Do MD #[address] [address] Consulting Physician Colon and Rectal Surgery 10/12/24 documented as of this encounter
--- OUTSIDE RECORDS SUMMARY | 2025-03-23 14:54 | XMS_ITS | Encounter Summary ---
Author Organization [facility] Address [address] [place] [address] Phone Care Team Providers Care Machine Cementer Name Role Phone Quang Locke Unavailable [phone] Keith Craft MD Primary Care Provider [phone] Bri Rollins RN Unavailable Unavailable Silvio Schulte MD Unavailable [phone] Bri Rollins RN Unavailable Unavailable Werner Swift MD Unavailable Liz Capellan DO Primary Care Provider [phone] Yasmin Restrepo MD Unavailable Jose Do MD Unavailable Reason for Visit * Reason Comments Medication Refill Encounter Details Date Type Department Care Team (Late st Contact Info) Description 12/13/2021 Refill [facility] [address] [place] [address] Keith Craft MD [address] [place] [address] Medication Refill Social History Tobacco [...] Final Insulin Pen Needle (UltiCare Mini Pen [place]) 31G X 6 MM Misc [Pharmacy Med Name: ULTICARE MINI PEN NEEDLES/31G X 6MM [id number] MISC] 300 Each 1 Sig: USE WITH [...] 09/08/21 Office Visit Brie Denis, PAC [facility] 08/14/21 Office Visit Keith Craft MD [facility] 07/31/21 Office Visit Keith Craft MD [facility] Showing recent visits within past 182 days and meeting all other requirements Future Appointments Date Type Provider Dept 03/09/22 Appointment Keith Craft MD [facility] Showing future appointments within next 90 days and meeting all other requirements documented in this encounter Plan of Treatment Upcoming Encounters Date Type Department Care Team (Late st Contact Info) Description 04/26/2025 1:30 PM ENERGY PROJECTS LEAD Office Visit [facility] - Pulmonology & Sleep Medicine - [place] [address]2 [facility] [place] [address] Werner Swift MD #2 [facility] [place] [address] 05/31/2025 1:20 PM ENERGY PROJECTS LEAD Office Visit [facility] - Family Medicine - [place] [address]2 [place] [address] Liz Capellan, DO 2 [facility] [address] [place] [address] 06/02/2025 1:30 PM ENERGY PROJECTS LEAD Office Visit [facility] - Endocrinology - [place] [address]2 [facility] [place] [address] Yasmin Restrepo MD #[address] [place] [address] documented as of this encounter Goals Goal [...] Zones/Action plan education. I will notify my Cuff Setter Lockstitch if my symptoms fall in the y [...] 19 04/20/2022 04/20/2022 04/30/2022 12:1 8 AM ENERGY PROJECTS LEAD COVID - 19 07/18/2022 07/18/2022 07/28/2022 12:1 6 AM ENERGY PROJECTS LEAD COVID - 19 08/21/2022 08/21/2022 08/22/2022 8:31 AM CDT Respiratory Rule Out - RPA 08/21/2022 08/21/2022 0 08/22/2022 3:21 PM CDT COVID - 19 04/18/2023 04/18/2023 04/28/2023 12:1 6 AM ENERGY PROJECTS LEAD COVID - 19 07/13/2023 07/13/2023 07/23/2023 12:1 6 AM ENERGY PROJECTS LEAD Respiratory Rule Out - RPA 03/17/2024 03/17/2024 1 3:36 PM CDT COVID - 19 04/27/2024 04/27/2024 04/27/2024 2:19 PM ENERGY PROJECTS LEAD Respiratory Rule-Out 07/24/2024 07/24/2024 025 2:29 PM ENERGY PROJECTS LEAD COVID - 19 07/24/2024 07/24/2024 07/24/2024 2:29 PM ENERGY PROJECTS LEAD COVID - 19 08/22/2024 08/22/2024 08/22/2024 11:4 6 PM CDT COVID - 19 09/03/2024 09/03/2024 09/03/2024 12:4 7 PM CDT Assessment Noted Time PHQ-9 Depression Total Score: 1 03/07/20 10:29 AM CDT documented as of this encounter Care Teams Machine Cementer Relationship Specialty Start Date End Date Keith Craft MD PCP - General Family Medicine 01/14/19 12/26/23 Liz Capellan DO [address] [address] PCP - General Family Medicine 12/27/23 Quang Locke DO Gastroenterology 01/18/16 Bri Rollins RN [place] Cuff Setter Lockstitch 03/07/21 05/22/23 [place] [id number] [address] 05/25/21 Bri Rollins, KATEY [place] Nurse Cuff Setter Lockstitch 03/07/21 05/23/23 Werner Swift MD #2 [place] [address] Consulting Physician Pulmonary Disease 01/30/22 Yasmin Restrepo MD #[address] [place] [address] Consulting Physician Endocrinology 07/20/24 Jose Do MD #[address] [address] Consulting Physician Colon and Rectal Surgery 10/12/24 documented as of this encounter
--- OUTSIDE RECORDS SUMMARY | 2025-03-23 14:54 | XMS_ITS | Encounter Summary ---
Author Organization [facility] Address [address] [place] [address] Phone Care Team Providers Care Railway Yard Assistant Name Role Phone Quang Locke Unavailable [phone] Keith Craft MD Primary Care Provider [phone] Bri Rollins RN Unavailable Unavailable Silvio Schulte MD Unavailable Bri Rollins RN Unavailable Unavailable Werner Swift MD Unavailable Liz Capellan DO Primary Care Provider [phone] Yasmin Restrepo MD Unavailable Jose Do MD Unavailable Reason for Visit * Reason Comments Medication Refill Encounter Details Date Type Department Care Team (Late st Contact Info) Description 03/31/2020 Refill [facility] #2 [place] [address] Keith Craft MD #[address] [place], [place] [address] Medication Refill Social History Tobacco Use Types [...] 1 month ago Acute non-recurrent maxillary sinusitis [facility] Keith Lemus MD 5 months ago Chronic prescription opiate use [facility] Keith Lemus MD 8 months ago Coronary artery disease involving [place] coronary artery of [place] heart without angina pectoris [facility] Keith Lemus MD 9 months ago COPD exacerbation (HCC) [facility] Brie Vieira PAC 11 months ago Type 2 diabetes mellitus with diabetic neuropathy, with long-term current use of insulin (HCC) [facility] Keith Lemus MD Upcoming Appointments Future Appointments In 2 months Keith Craft MD [facility] YULIA Mckeon FLORIST - Recent and Past Visits Recent Visits Date Type Provider Dept 02/02/20 Office Visit [facility] MD [facility] 11/02/19 Office Visit Keith Craft MD [facility] 07/27/19 Office Visit Keith Craft MD [facility] 06/10/19 Office Visit Analiamanny Brie Palma, NICOLE [facility] 04/20/19 Office Visit Keith Craft MD [facility] 01/14/19 Office Visit Keith Craft MD [facility] Showing recent visits within past 460 days with a meds authorizing provider and meeting all other requirements Future Appointments Date Type Provider Dept 06/07/20 Appointment Keith Craft MD [facility] Showing future appointments within next 90 days with a meds authorizing provider and meeting all other requirements COMPOUNDER documented in this encounter Plan of Treatment Upcoming Encounters Date Type Department Care Team (Late st Contact Info) Description 04/26/2025 1:30 PM CORK COMPOUNDER Office Visit [facility] Medical [facility] - Pulmonology & Sleep Medicine - [place] [address] [place] [address] Werner Swift MD #2 [facility] [place] [address] 05/31/2025 1:20 PM CORK COMPOUNDER Office Visit [facility] Medical [facility] - Family Medicine - [place] #2 [place] [address] Liz Capellan, DO [address] [address] 06/02/2025 1:30 PM CORK COMPOUNDER Office Visit [facility] Medical [facility] - Endocrinology - [place] #[address] [facility] [place] [address] Yasmin Restrepo MD #[address] [place] [address] documented as of this encounter Visit Diagnoses Diagnosis Anxiety and depression Dysthymic disorder documented in this encounter Additional Health Concerns Infection Onset Date Last Indicated Resolved Time COVID - 19 01/25/2021 01/25/2021 01/31/2021 8:10 AM CDT Respiratory Rule Out - RPA 01/30/2021 01/30/2021 0 02/01/2021 12:45 AM CDT COVID - 19 07/23/2021 07/23/2021 07/24/2021 6:31 AM CORK COMPOUNDER COVID - 19 10/19/2021 10/19/2021 10/20/2021 7:45 AM CDT Respiratory Rule Out - RPA 10/19/2021 10/19/2021 0 10/20/2021 2:10 PM CDT Stenotrophomonas maltophilia Comment:Must have a follow up respiratory sample to remove isolation/infection flag. 10/20/2021 10/20/2021 COVID - 19 04/20/2022 04/20/2022 04/30/2022 12:1 8 AM CORK COMPOUNDER COVID - 19 07/18/2022 07/18/2022 07/28/2022 12:1 6 AM CORK COMPOUNDER COVID - 19 08/21/2022 08/21/2022 08/22/2022 8:31 AM CDT Respiratory Rule Out - RPA 08/21/2022 08/21/2022 0 08/22/2022 3:21 PM CDT COVID - 19 04/18/2023 04/18/2023 04/28/2023 12:1 6 AM CORK COMPOUNDER COVID - 19 07/13/2023 07/13/2023 07/23/2023 12:1 6 AM CORK COMPOUNDER Respiratory Rule Out - RPA 03/17/2024 03/17/2024 1 3:36 PM CDT COVID - 19 04/27/2024 04/27/2024 04/27/2024 2:19 PM CORK COMPOUNDER Respiratory Rule-Out 07/24/2024 07/24/2024 025 2:29 PM CORK COMPOUNDER COVID - 19 07/24/2024 07/24/2024 07/24/2024 2:29 PM CORK COMPOUNDER COVID - 19 08/22/2024 08/22/2024 08/22/2024 11:4 6 PM CDT COVID - 19 09/03/2024 09/03/2024 09/03/2024 12:4 7 PM CDT Assessment Noted Time PHQ-9 Depression Total Score: 1 06/10/19 20 1:03 PM CORK COMPOUNDER documented as of this encounter Care Teams Railway Yard Assistant Relationship Specialty Start Date End Date Keith Craft MD PCP - General Family Medicine 01/14/19 12/26/23 Liz Capellan DO [address] [address] PCP - General Family Medicine 12/27/23 Quang Locke DO Gastroenterology 01/18/16 Bri Rollins RN [place] Weight Count Operator 03/07/21 05/22/23 [place] [address] [address] 05/25/21 Bri Rollins RN [place] Nurse Weight Count Operator 03/07/21 05/23/23 Werner Swift MD #2 [place] [address] Consulting Physician Pulmonary Disease 01/30/22 Yasmin Restrepo MD #[address] [phone] Consulting Physician Endocrinology 07/20/24 Jose Do MD #[address] [place] [address] Consulting Physician Colon and Rectal Surgery 10/12/24 documented as of this encounter
--- OUTSIDE RECORDS SUMMARY | 2025-03-23 14:54 | XMS_ITS | Encounter Summary ---
Author Organization [facility] Address [address] [place] [address] Phone Care Team Providers Care Door Liner Helper Name Role Phone Quang Locke Unavailable [phone] Keith Craft MD Primary Care Provider [phone] Bri Rollins RN Unavailable Unavailable Silvio Schulte MD Unavailable [phone] Bri Rollins RN Unavailable Unavailable Werner Swift MD Unavailable Liz aCpellan DO Primary Care Provider [phone] Yasmin Restrepo MD Unavailable Jose Do MD Unavailable Reason for Visit * Reason Comments Medication Refill Dexilant Encounter Details Date Type Department Care Team (Late st Contact Info) Description 04/09/2020 Refill [facility] - Family Medicine [facility] #2 [place] [address] Keith Craft MD #1 [place] [address] Medication Refill (Dexilant) Social History [...] Piotr Aguirre RN - 04/09/2020 9:41 AM SUPPLIER MANAGER Requested Prescriptions Pending Prescriptions Disp Refills ??? Dexilant 60 MG CAPSULE DELAYED RELEASE [Pharmacy Med Name: DEXILANT DR 60 MG CAPSULE] 90 Cap 3 Sig: TAKE 1 CAPSULE BY MOUTH EVERY DAY Above medication pended for your approval. Last refill: 01/14/19 #90/3 Last office visit: 02/02/20 Next visit: 06/07/20 LIER MANAGER documented in this encounter Plan of Treatment Upcoming Encounters Date Type Department Care Team (Late st Contact Info) Description 04/26/2025 1:30 PM SUPPLIER MANAGER Office Visit [facility] Group - Pulmonology & Sleep Medicine [facility] #2 [place] [address] Werner Swift MD #2 [place] [address] 05/31/2025 1:20 PM SUPPLIER MANAGER Office Visit [facility] Medical Group - Family Medicine [facility] #2 [place] [address] Liz Capellan, DO [address] [address] 06/02/2025 1:30 PM SUPPLIER MANAGER Office Visit [facility] - Endocrinology - [place] [address] [place] [address] Yasmin Restrepo MD [address] [address] documented as of this encounter Visit Diagnoses Diagnosis Gastroesophageal reflux disease without esophagitis Esophageal reflux documented in this encounter Additional Health Concerns Infection Onset Date Last Indicated Resolved Time COVID - 19 01/25/2021 01/25/2021 01/31/2021 8:10 AM CDT Respiratory Rule Out - RPA 01/30/2021 01/30/2021 0 02/01/2021 12:45 AM CDT COVID - 19 07/23/2021 07/23/2021 07/24/2021 6:31 AM SUPPLIER MANAGER COVID - 19 10/19/2021 10/19/2021 10/20/2021 7:45 AM CDT Respiratory Rule Out - RPA 10/19/2021 10/19/2021 0 10/20/2021 2:10 PM CDT Stenotrophomonas maltophilia Comment:Must have a follow up respiratory sample to remove isolation/infection flag. 10/20/2021 10/20/2021 COVID - 19 04/20/2022 04/20/2022 04/30/2022 12:1 8 AM SUPPLIER MANAGER COVID - 19 07/18/2022 07/18/2022 07/28/2022 12:1 6 AM SUPPLIER MANAGER COVID - 19 08/21/2022 08/21/2022 08/22/2022 8:31 AM CDT Respiratory Rule Out - RPA 08/21/2022 08/21/2022 0 08/22/2022 3:21 PM CDT COVID - 19 04/18/2023 04/18/2023 04/28/2023 12:1 6 AM SUPPLIER MANAGER COVID - 19 07/13/2023 07/13/2023 07/23/2023 12:1 6 AM SUPPLIER MANAGER Respiratory Rule Out - RPA 03/17/2024 03/17/2024 1 3:36 PM CDT COVID - 19 04/27/2024 04/27/2024 04/27/2024 2:19 PM SUPPLIER MANAGER Respiratory Rule-Out 07/24/2024 07/24/2024 025 2:29 PM SUPPLIER MANAGER COVID - 19 07/24/2024 07/24/2024 07/24/2024 2:29 PM SUPPLIER MANAGER COVID - 19 08/22/2024 08/22/2024 08/22/2024 11:4 6 PM CDT COVID - 19 09/03/2024 09/03/2024 09/03/2024 12:4 7 PM CDT Assessment Noted Time PHQ-9 Depression Total Score: 1 06/10/19 20 1:03 PM SUPPLIER MANAGER documented as of this encounter Care Teams Door Liner Helper Relationship Specialty Start Date End Date Keith Craft MD PCP - General Family Medicine 01/14/19 12/26/23 Liz Capellan DO [address] [address] PCP - General Family Medicine 12/27/23 Quang Locke DO Gastroenterology 01/18/16 Bri Rollins RN [place] Greenhouse Specialist 03/07/21 05/22/23 [place] [id number] [address] 05/25/21 Bri Rollins RN [place] Nurse Greenhouse Specialist 03/07/21 05/23/23 Werner Swift MD #2 [place] [address] Consulting Physician Pulmonary Disease 01/30/22 Yasmin Restrepo MD #[address] [address] Consulting Physician Endocrinology 07/20/24 Jose Do MD #[address] [address] Consulting Physician Colon and Rectal Surgery 10/12/24 documented as of this encounter
--- OUTSIDE RECORDS SUMMARY | 2025-03-23 14:54 | XMS_ITS | Encounter Summary ---
Author Organization [facility] Address [address] [place] [address] Phone Care Team Providers Care Reel Cutter Name Role Phone Quang Locke Unavailable [phone] Keith Craft MD Primary Care Provider [phone] Bri Rollins RN Unavailable Unavailable Silvio Schulte MD Unavailable [phone] Bri Rollins RN Unavailable Unavailable Werner Swift MD Unavailable Liz Capellan DO Primary Care Provider [phone] Yasmin Restrepo MD Unavailable Jose Do MD Unavailable Reason for Visit * Reason Comments Medication Refill Encounter Details Date Type Department Care Team (Late st Contact Info) Description 10/31/2021 Refill [facility] - Family Medicine [facility] #2 [place] [address] Keith Craft MD [address] [place] [address] Medication Refill Social History Tobacco [...] Tesfaye 09/08/21 Office Visit [facility]rie [facility] 08/14/21 Office Visit Keith Craft MD [facility] 07/31/21 Office Visit Keith Craft MD [facility] 05/25/21 Office Visit Marcin Anderson, LAYER OFF, EQUIPMENT APPLICATION SPECIALIST [facility] 05/05/21 Office Visit Analiamanny Brie Palma, PAC [facility] 04/14/21 Office Visit Keith Craft MD [facility] 03/23/21 [facility] Office Visit Keith Craft MD [facility] Showing recent visits within past 365 days and meeting all other requirements Future Appointments Date Type Provider Dept 11/03/21 Appointment Keith Craft MD [facility] 12/19/21 Appointment Keith Craft MD [facility] Showing future appointments within next 90 days and meeting all other requirements documented in this encounter Plan of Treatment Upcoming Encounters Date Type Department Care Team (Late st Contact Info) Description 04/26/2025 1:30 PM SUPERVISOR COOK ROOM Office Visit [facility] Medical [facility] - Pulmonology & Sleep Medicine [facility] [address]2 [place] [address] Werner Swift MD #2 [place] [address] 05/31/2025 1:20 PM SUPERVISOR COOK ROOM Office Visit [facility] - Family Medicine - [place] [address] [place] [address] Liz Capellan, DO [address] [address] 06/02/2025 1:30 PM SUPERVISOR COOK ROOM Office Visit [facility] - Endocrinology - [place] [address] [place] [address] Yasmin Restrepo MD #[address] [phone] documented as of this encounter Goals Goal [...] Zones/Action plan education. I will notify my School Business Administrator if my symptoms fall in the [...] 04/20/2022 04/20/2022 04/30/2022 12:1 8 AM SUPERVISOR COOK ROOM COVID - 19 07/18/2022 07/18/2022 07/28/2022 12:1 6 AM SUPERVISOR COOK ROOM COVID - 19 08/21/2022 08/21/2022 08/22/2022 8:31 AM CDT Respiratory Rule Out - RPA 08/21/2022 08/21/2022 0 08/22/2022 3:21 PM CDT COVID - 19 04/18/2023 04/18/2023 04/28/2023 12:1 6 AM SUPERVISOR COOK ROOM COVID - 19 07/13/2023 07/13/2023 07/23/2023 12:1 6 AM SUPERVISOR COOK ROOM Respiratory Rule Out - RPA 03/17/2024 03/17/2024 1 3:36 PM CDT COVID - 19 04/27/2024 04/27/2024 04/27/2024 2:19 PM SUPERVISOR COOK ROOM Respiratory Rule-Out 07/24/2024 07/24/2024 025 2:29 PM SUPERVISOR COOK ROOM COVID - 19 07/24/2024 07/24/2024 07/24/2024 2:29 PM SUPERVISOR COOK ROOM COVID - 19 08/22/2024 08/22/2024 08/22/2024 11:4 6 PM CDT COVID - 19 09/03/2024 09/03/2024 09/03/2024 12:4 7 PM CDT Assessment Noted Time PHQ-9 Depression Total Score: 1 03/07/20 10:29 AM CDT documented as of this encounter Care Teams Reel Cutter Relationship Specialty Start Date End Date Keith Craft MD PCP - General Family Medicine 01/14/19 12/26/23 Liz Capellan DO [address] [address] PCP - General Family Medicine 12/27/23 Quang Locke DO Gastroenterology 01/18/16 Bri Rollins RN [place] School Business Administrator 03/07/21 05/22/23 [place] [id number] [address] 05/25/21 Bri Rollins RN [place] Nurse School Business Administrator 03/07/21 05/23/23 Werner Swift MD #2 [place] [phone] Consulting Physician Pulmonary Disease 01/30/22 Yasmin Restrepo MD #[address] [address] Consulting Physician Endocrinology 07/20/24 Jose Do MD #[address] [address] Consulting Physician Colon and Rectal Surgery 10/12/24 documented as of this encounter
--- OUTSIDE RECORDS SUMMARY | 2025-03-23 14:54 | XMS_ITS | Encounter Summary ---
Author Organization [facility] Address [address] [place] [address] Phone Care Team Providers Care Devops Engineer Name Role Phone Quang Locke Unavailable [phone] Keith Craft MD Primary Care Provider [phone] Bri Rollins RN Unavailable Unavailable Silvio Schulte MD Unavailable [phone] Bri Rollins RN Unavailable Unavailable Werner Swift MD Unavailable Liz Capellan DO Primary Care Provider [phone] Yasmin Restrepo MD Unavailable Jose Do MD Unavailable Reason for Visit * Reason Comments Medication Refill Encounter Details Date Type Department Care Team (Late st Contact Info) Description 11/30/2021 Refill [facility] - Family Medicine [facility] #2 [place] [address] Keith Craft MD [address] [place] [address] Medication Refill Social History Tobacco [...] Craft MD [facility] 05/25/21 Office Visit Maricn Anderson, CYTOLOGY TEACHER, DIRECTOR OF PLANT OPERATIONS [facility] 05/05/21 Office Visit Brie Denis, NICOLE [facility] 04/14/21 Office Visit Keith Craft MD [facility] 03/23/21 Office Visit Keith Craft MD [facility] Showing recent visits within past 365 days and meeting all other requirements Future Appointments Date Type Provider Dept 12/19/21 Appointment Keith Craft MD [facility] Showing future appointments within next 90 days and meeting all other requirements documented in this encounter Plan of Treatment Upcoming Encounters Date Type Department Care Team (Late st Contact Info) Description 04/26/2025 1:30 PM AFRICAN STUDIES PROFESSOR Office Visit [facility] Medical [facility] - Pulmonology & Sleep Medicine - [place] [address] [place] [address] Werner Swift MD #2 [place] [address] 05/31/2025 1:20 PM AFRICAN STUDIES PROFESSOR Office Visit [facility] Medical [facility] - Family Medicine - [place] [address] [place] [address] Liz Capellan, DO [address] [address] 06/02/2025 1:30 PM AFRICAN STUDIES PROFESSOR Office Visit [facility] - Endocrinology - [place] [address] [place] [address] Yasmin Restrepo MD #[address] [phone] documented as of this encounter Goals Goal [...] plan education. I will notify my Therapist if my symptoms fall in the y [...] 19 04/20/2022 04/20/2022 04/30/2022 12:1 8 AM AFRICAN STUDIES PROFESSOR COVID - 19 07/18/2022 07/18/2022 07/28/2022 12:1 6 AM AFRICAN STUDIES PROFESSOR COVID - 19 08/21/2022 08/21/2022 08/22/2022 8:31 AM CDT Respiratory Rule Out - RPA 08/21/2022 08/21/2022 0 08/22/2022 3:21 PM CDT COVID - 19 04/18/2023 04/18/2023 04/28/2023 12:1 6 AM AFRICAN STUDIES PROFESSOR COVID - 19 07/13/2023 07/13/2023 07/23/2023 12:1 6 AM AFRICAN STUDIES PROFESSOR Respiratory Rule Out - RPA 03/17/2024 03/17/2024 1 3:36 PM CDT COVID - 19 04/27/2024 04/27/2024 04/27/2024 2:19 PM AFRICAN STUDIES PROFESSOR Respiratory Rule-Out 07/24/2024 07/24/2024 025 2:29 PM AFRICAN STUDIES PROFESSOR COVID - 19 07/24/2024 07/24/2024 07/24/2024 2:29 PM AFRICAN STUDIES PROFESSOR COVID - 19 08/22/2024 08/22/2024 08/22/2024 11:4 6 PM CDT COVID - 19 09/03/2024 09/03/2024 09/03/2024 12:4 7 PM CDT Assessment Noted Time PHQ-9 Depression Total Score: 1 03/07/20 21 10:29 AM CDT documented as of this encounter Care Teams Devops Engineer Relationship Specialty Start Date End Date Keith Craft MD PCP - General Family Medicine 01/14/19 12/26/23 Liz Capellan DO [address] [address] PCP - General Family Medicine 12/27/23 Quang Locke DO Gastroenterology 01/18/16 Bri Rollins RN [place] Therapist 03/07/21 05/22/23 [place] [id number] [address] 05/25/21 Bri Rollins RN [place] Nurse Therapist 03/07/21 05/23/23 Werner Swift MD #2 [place] [address] Consulting Physician Pulmonary Disease 01/30/22 Yasmin Restrepo MD #[address] [address] Consulting Physician Endocrinology 07/20/24 Jose Do MD #[address] [address] Consulting Physician Colon and Rectal Surgery 10/12/24 documented as of this encounter
--- OUTSIDE RECORDS SUMMARY | 2025-03-23 14:55 | XMS_ITS | Encounter Summary ---
Author Organization [facility] Address [address] [place] [address] Phone Care Team Providers Care Gifts Officer Name Role Phone Quang Locke Unavailable [phone] Keith Craft MD Primary Care Provider [phone] Bri Rollins RN Unavailable Unavailable Silvio Schulte MD Unavailable [phone] Bri Rollins RN Unavailable Unavailable Werner Swift MD Unavailable Liz Capellan DO Primary Care Provider Yasmin Restrepo MD Unavailable Jose Do MD Unavailable Reason for Visit * Reason Comments Medication Refill Encounter Details Date Type Department Care Team (Late st Contact Info) Description 05/01/2023 Refill [facility] - Family Medicine [facility] #2 [place] [address] Keith Craft MD [address] [place] [address] Medication Refill Social History Tobacco [...] Kelin Nance RN - 05/01/2023 12:38 PM IT APPLICATION ARCHITECT PDMP 04-04-23 as 30-day supply. Fill date [...] Dept 04/12/23 Office Visit Keith Craft MD [facility] 12/10/22 [facility]/10[facility] Office Visit Keith Craft MD [facility] 07/18/22 Office Visit Kerri Kauffman, FRIT MIXER AND BURNER, GRANTS AND CONTRACTS ASSISTANT [facility] Show[facility] recent visits within past 365 days and meeting all other requirements Future Appointments Date Type Provider Dept 05/02/23 Appointment Keith Craft, [facility] Showing future appointments within next 90 days and meeting all other requirements APPLICATION ARCHITECT documented in this encounter Plan of Treatment Upcoming Encounters Date Type Department Care Team (Late st Contact Info) Description 04/26/2025 1:30 PM IT APPLICATION ARCHITECT Office Visit [facility] - Pulmonology & Sleep Medicine [facility] #2 [place] [address] Werner Swift MD #2 [place] [address] 05/31/2025 1:20 PM IT APPLICATION ARCHITECT Office Visit [facility] - Family Medicine - [place] #2 [place] [address] Liz Capellan, DO [address] [address] 06/02/2025 1:30 PM IT APPLICATION ARCHITECT Office Visit [facility] Endocrinology [facility] #2 [place] [address] Yasmin Restrepo MD #[address] [phone] documented as of this encounter Goals Goal [...] Zones/Action plan education. I will notify my Mobile Health Vehicle Operator if my symptoms fall in the [...] 07/13/2023 07/13/2023 07/23/2023 12:1 6 AM IT APPLICATION ARCHITECT Respiratory Rule Out - RPA 03/17/2024 03/17/2024 1 3:36 PM CDT COVID - 19 04/27/2024 04/27/2024 04/27/2024 2:19 PM IT APPLICATION ARCHITECT Respiratory Rule-Out 07/24/2024 07/24/2024 025 2:29 PM IT APPLICATION ARCHITECT COVID - 19 07/24/2024 07/24/2024 07/24/2024 2:29 PM IT APPLICATION ARCHITECT COVID - 19 08/22/2024 08/22/2024 08/22/2024 11:4 6 PM CDT COVID - 19 09/03/2024 09/03/2024 09/03/2024 12:4 7 PM CDT Assessment Noted Time PHQ-9 Depression Total Score: 1 03/07/20 10:29 AM CDT documented as of this encounter Care Teams Gifts Officer Relationship Specialty Start Date End Date Keith Craft MD PCP - General Family Medicine 01/14/19 12/26/23 Liz Capellan DO [address] [address] PCP - General Family Medicine 12/27/23 Quang Locke DO Gastroenterology 01/18/16 Bri Rollins RN [place] Mobile Health Vehicle Operator 03/07/21 05/22/23 [place] [id number] [address] 05/25/21 Bri Rollins RN [place] Nurse Mobile Health Vehicle Operator 03/07/21 05/23/23 Werner Swift MD #[address] [place] [address] Consulting Physician Pulmonary Disease 01/30/22 Yasmin Restrepo MD #[address] [phone] Consulting Physician Endocrinology 07/20/24 Jose Do MD #[address] [address] Consulting Physician Colon and Rectal Surgery 10/12/24 documented as of this encounter
--- OUTSIDE RECORDS SUMMARY | 2025-03-23 14:55 | XMS_ITS | Encounter Summary ---
Author Organization [facility] Address [address] [place] [address] Phone Care Team Providers Care Coal Pulverizer Operator Name Role Phone Quang Locke Unavailable [phone] Keith Craft MD Primary Care Provider [phone] Bri Rollins RN Unavailable Unavailable Silvio Schulte MD Unavailable [phone] Bri Rollins RN Unavailable Unavailable Werner Swift MD Unavailable Liz Capellan DO Primary Care Provider [phone] Yasmin Restrepo MD Unavailable Jose Do MD Unavailable Reason for Visit * Reason Comments Medication Refill Encounter Details Date Type Department Care Team (Late st Contact Info) Description 05/13/2023 Refill [facility] - Family Medicine [facility] #2 [place] [address] Keith Craft MD [address] [place] [address] Medication Refill Social History [...] Kelin Nance RN - 05/13/2023 9:49 AM GROCERY CADDY Medication failed the protocol, provider to review [...] Tesfaye 12/10/22 Office Visit Keith Craft MD [facility] 09/10/22 Office Visit Keith Craft MD [facility] 07/18/22 Office Visit Kerri Kauffman, POWER STATION OPERATOR, STAFF NURSE ANESTHETIST [facility] 06/07/22 Office Visit Keith Craft MD [facility] 03/02/22 Procedure Visit [facility] 03/02/22 [facility] 11/03/21 Office Visit Keith Craft MD [facility] 10/19/21 Office Visit Keith Craft MD [facility] Showing recent visits within past 730 [...] [facility] 07/18/22 Office Visit Kerri Kauffman, POWER STATION OPERATOR, STAFF NURSE ANESTHETIST [facility] Office Visit Keith Craft MD [facility] Showing recent visits within past 365 [...] Dept 05/02/23 Office Visit Keith Craft MD [facility] 04/12/23 Office Visit Keith Craft MD [facility] 12/10/22 [facility] 09/10/22 [facility] 07/18/22 Office Visit Kerri Kauffman, POWER STATION OPERATOR, STAFF NURSE ANESTHETIST [facility]22 Office Visit Keith Craft MD [facility] Showing recent visits within past 365 days and meeting all other requirements Future Appointments No visits were found meeting these conditions. Showing future appointments within next 90 days and meeting all other requirements Passed - Active short-acting beta agonist prescription ERY CADDY documented in this encounter Plan of Treatment Upcoming Encounters Date Type Department Care Team (Late st Contact Info) Description 04/26/2025 1:30 PM GROCERY CADDY Office Visit [facility] Medical [facility] - Pulmonology & Sleep Medicine - [place] [address] [place] [address] Werner Swift MD #2 [place] [address] 05/31/2025 1:20 PM GROCERY CADDY Office Visit [facility] Medical [facility] - Family Medicine - [place] [address] [place] [address] Liz Capellan, DO 2 [facility] [address] [place] [address] 06/02/2025 1:30 PM GROCERY CADDY Office Visit [facility] - Endocrinology - [place] [address] [place] [address] Yasmin Restrepo MD #[address] [phone] documented as of this encounter Goals Goal [...] Zones/Action plan education. I will notify my Container Washer if my symptoms fall in the y [...] 19 07/13/2023 07/13/2023 07/23/2023 12:1 6 AM GROCERY CADDY Respiratory Rule Out - RPA 03/17/2024 03/17/2024 1 3:36 PM CDT COVID - 19 04/27/2024 04/27/2024 04/27/2024 2:19 PM GROCERY CADDY Respiratory Rule-Out 07/24/2024 07/24/2024 025 2:29 PM GROCERY CADDY COVID - 19 07/24/2024 07/24/2024 07/24/2024 2:29 PM GROCERY CADDY COVID - 19 08/22/2024 08/22/202408/22/2024 11:4 6 PM CDT COVID - 19 09/03/2024 09/03/2024 09/03/2024 12:4 7 PM CDT Assessment Noted Time PHQ-9 Depression Total Score: 1 03/07/20 21 10:29 AM CDT documented as of this encounter Care Teams Coal Pulverizer Operator Relationship Specialty Start Date End Date Keith Craft MD PCP - General Family Medicine 01/14/19 12/26/23 Liz Capellan DO [address] [id number] PCP - General Family Medicine 12/27/23 Quang Locke DO Gastroenterology 01/18/16 Bri Rollins, RN [place] Container Washer 03/07/21 05/22/23 [place] [address] [address] 05/25/21 Bri Rollins, RN [place] Nurse Container Washer 03/07/21 05/23/23 Werner Swift MD #2 [place] [address] Consulting Physician Pulmonary Disease 01/30/22 Yasmin Restrepo MD #[address] [phone] Consulting Physician Endocrinology 07/20/24 Jose Do MD #[address] [phone] Consulting Physician Colon and Rectal Surgery 10/12/24 documented as of this encounter
--- OUTSIDE RECORDS SUMMARY | 2025-03-23 14:55 | XMS_ITS | Encounter Summary ---
Author Organization [facility] Address [address] [place] [address] Phone Care Team Providers Care Assessment Nurse Practitioner Name Role Phone Quang Locke Unavailable [phone] Keith Craft MD Primary Care Provider [phone] Bri Rollins RN Unavailable Unavailable Silvio Schulte MD Unavailable [phone] Bri Rollins RN Unavailable Unavailable Werner Swift MD Unavailable Liz Capellan DO Primary Care Provider [phone] Yasmin Restrepo MD Unavailable Jose Do MD Unavailable Reason for Visit * Reason Comments Medication Refill Encounter Details Date Type Department Care Team (Late st Contact Info) Description 04/16/2021 Refill [facility] #2 [place] [address] Keith Craft MD #1 [place] [address] Medication Refill Social History Tobacco [...] COVID-19? No / Unsure 04/18/2021 1:18 PM ENVIRONMENTAL HEALTH SAFETY ENGINEER documented as of this encounter Miscellaneous Notes * Telephone Encounter - Gloria Cornejo RN - 04/17/2021 11:34 AM CST 90 days supply filled at [facility] 03/29/21 RONMENTAL HEALTH SAFETY ENGINEER documented in this encounter Plan of Treatment Upcoming Encounters Date Type Department Care Team (Late st Contact Info) Description 04/26/2025 1:30 PM ENVIRONMENTAL HEALTH SAFETY ENGINEER Office Visit [facility] - Pulmonology & Sleep Medicine [facility] #2 [place] [address] Werner Swift MD #2 [place] [address] 05/31/2025 1:20 PM ENVIRONMENTAL HEALTH SAFETY ENGINEER Office Visit [facility] - Family Medicine - [place] #2 [place] [address] Liz Capellan, DO [address] [address] 06/02/2025 1:30 PM ENVIRONMENTAL HEALTH SAFETY ENGINEER Office Visit [facility] - Endocrinology - [place] [address] [place] [address] Yasmin Restrepo MD [address] [address] documented as of this encounter Goals Goal [...] Zones/Action plan education. I will notify my Robotype Operator if my symptoms fall in the [...] - 19 07/23/2021 07/23/2021 07/24/2021 6:31 AM ENVIRONMENTAL HEALTH SAFETY ENGINEER COVID - 19 10/19/2021 10/19/2021 10/20/2021 7:45 AM CDT Respiratory Rule Out - RPA 10/19/2021 10/19/2021 0 10/20/2021 2:10 PM CDT Stenotrophomonas maltophilia Comment:Must have a follow up respiratory sample to remove isolation/infection flag. 10/20/2021 10/20/2021 COVID - 19 04/20/2022 04/20/2022 04/30/2022 12:1 8 AM ENVIRONMENTAL HEALTH SAFETY ENGINEER COVID - 19 07/18/2022 07/18/2022 07/28/2022 12:1 6 AM ENVIRONMENTAL HEALTH SAFETY ENGINEER COVID - 19 08/21/2022 08/21/2022 08/22/2022 8:31 AM CDT Respiratory Rule Out - RPA 08/21/2022 08/21/2022 0 08/22/2022 3:21 PM CDT COVID - 19 04/18/2023 04/18/2023 04/28/2023 12:1 6 AM ENVIRONMENTAL HEALTH SAFETY ENGINEER COVID - 19 07/13/2023 07/13/2023 07/23/2023 12:1 6 AM ENVIRONMENTAL HEALTH SAFETY ENGINEER Respiratory Rule Out - RPA 03/17/2024 03/17/2024 1 3:36 PM CDT COVID - 19 04/27/2024 04/27/2024 04/27/2024 2:19 PM ENVIRONMENTAL HEALTH SAFETY ENGINEER Respiratory Rule-Out 07/24/2024 07/24/2024 025 2:29 PM ENVIRONMENTAL HEALTH SAFETY ENGINEER COVID - 19 07/24/2024 07/24/2024 07/24/2024 2:29 PM ENVIRONMENTAL HEALTH SAFETY ENGINEER COVID - 19 08/22/2024 08/22/2024 08/22/2024 11:4 6 PM CDT COVID - 19 09/03/2024 09/03/2024 09/03/2024 12:4 7 PM CDT Assessment Noted Time PHQ-9 Depression Total Score: 1 03/07/20 21 10:29 AM CDT documented as of this encounter Care Teams Assessment Nurse Practitioner Relationship Specialty Start Date End Date Keith Craft MD PCP - General Family Medicine 01/14/19 12/26/23 Liz Capellan DO [address] [facility] [address] [place] [address] PCP - General Family Medicine 12/27/23 Quang Locke DO Gastroenterology 01/18/16 Bri Rollins, KATE[place] Robotype Operator 03/07/21 05/22/23 [place] [address] [address] 05/25/21 Bri Rollins, [place] Nurse Robotype Operator 03/07/21 05/23/23 Werner Swift MD [address] [place] [address] Consulting Physician Pulmonary Disease 01/30/22 Yasmin Restrepo MD #[address] [address] Consulting Physician Endocrinology 07/20/24 Jose Do MD #[address] [address] Consulting Physician Colon and Rectal Surgery 10/12/24 documented as of this encounter
--- OUTSIDE RECORDS SUMMARY | 2025-03-23 14:55 | XMS_ITS | Encounter Summary ---
Author Organization [facility] Address [address] [place] [address] Phone Care Team Providers Care Internal Communications Manager Name Role Phone Quang Locke Unavailable [phone] Keith Craft MD Primary Care Provider [phone] Silvio Schulte MD Unavailable [phone] Werner Swift MD Unavailable Liz Capellan DO Primary Care Provider [phone] Yasmin Restrepo MD Unavailable Jose Do MD Unavailable Reason for Visit * Reason Comments Medication Refill Encounter Details Date Type Department Care Team (Late st Contact Info) Description 07/10/2023 Refill [facility] Medicine [facility] #2 [place] [address] Keith Craft MD #1 [place] [address] Medication Refill Social History Tobacco Use Types [...] often do you attend chur ch or congregational services? Never 07/13/2023 Do you belong to [...] Total Score - Questions 1-9 0 08/2021 [facility] [place] of Occupat ional Health - Occupational Stress [...] on one occasion? Never 07/13/2023 5:05 PM KNOBBER Yonathan Diaz RN documented as of this encounter Miscellaneous Notes * Telephone Encounter - Kelin Nance RN - 07/10/2023 2:40 PM KNOBBER Corrected - PDMP 05-04-23 BER * Telephone Encounter - Kelin Nance RN - 07/10/2023 2:39 PM KNOBBER PDMP 05-04-24, 30 days Will need UDS [...] [facility] 07/18/22 Office Visit Kerri Kauffman, TECHNICAL CLERK, CELL SUPPORT OPERATOR [facility] Showing recent visits within past 365 days and meeting all other requirements Future Appointments Date Type Provider Dept 08/15/23 Appointment Keith Craft MD [facility] Showing future appointments within next 90 days and meeting all other requirements BER documented in this encounter Plan of Treatment Upcoming Encounters Date Type Department Care Team (Late st Contact Info) Description 04/26/2025 1:30 PM KNOBBER Office Visit [facility] - Pulmonology & Sleep Medicine - [place] #2 [place] [address] Werner Swift MD #2 [place] [address] 05/31/2025 1:20 PM KNOBBER Office Visit [facility] - Family Medicine - [place] #2 [place] [address] Liz Capellan, DO 2 [facility] [address] [place] [address] 06/02/2025 1:30 PM KNOBBER Office Visit [facility] Endocrinology - [place] #2 [place] [address] Yasmin Restrepo MD #[address] [address] documented as of this encounter Goals Goal [...] Zones/Action plan education. I will notify my Technician Helper Instrument if my symptoms fall in the y [...] 19 07/13/2023 07/13/2023 07/23/2023 12:1 6 AM KNOBBER Respiratory Rule Out - RPA 03/17/2024 03/17/2024 1 3:36 PM CDT COVID - 19 04/27/2024 04/27/2024 04/27/2024 2:19 PM KNOBBER Respiratory Rule-Out 07/24/2024 07/24/2024 025 2:29 PM KNOBBER COVID - 19 07/24/2024 07/24/2024 07/24/2024 2:29 PM KNOBBER COVID - 19 08/22/2024 08/22/2024 08/22/2024 11:4 6 PM CDT COVID - 19 09/03/2024 09/03/2024 09/03/2024 12:4 7 PM CDT Assessment Noted Time PHQ-9 Depression Total Score: 1 03/07/20 21 10:29 AM CDT documented as of this encounter Care Teams Internal Communications Manager Relationship Specialty Start Date End Date Keith Craft MD PCP - General Family Medicine 01/14/19 12/26/23 Liz Capellan DO 2 [place] [address] PCP - General Family Medicine 12/27/23 Quang Locke DO Gastroenterology 01/18/16 [place] [address] [address] 05/25/21 Werner Swift MD #2 [place] [address] Consulting Physician Pulmonary Disease 01/30/22 Yasmin Restrepo MD #[address] [address] Consulting Physician Endocrinology 07/20/24 Jose Do MD #[address] [address] Consulting Physician Colon and Rectal Surgery 10/12/24 documented as of this encounter
--- OUTSIDE RECORDS SUMMARY | 2025-03-23 14:55 | XMS_ITS | Encounter Summary ---
Author Organization [facility] Address [address] [place] [address] Phone Care Team Providers Care Underwriting Consultant Name Role Phone Quang Locke Unavailable [phone] Keith Craft MD Primary Care Provider Silvio Schulte MD Unavailable [phone] Werner Swift MD Unavailable Liz Capellan DO Primary Care Provider [phone] Yasmin Restrepo MD Unavailable Jose Do MD Unavailable Reason for Visit * Reason Comments Medication Refill Encounter Details Date Type Department Care Team (Late st Contact Info) Description 11/06/2023 Refill [facility] - Family Medicine [facility] #2 [place] [address] Keith Craft MD #1 [place] [address] Medication Refill Social History Tobacco Use Types [...] any clubs o r organizations such as mormon groups, unions, fraternal or athletic groups, or [...] Score - Questions 1-9 4 10/25 [facility] [place] of Occupat ional Health - Occupational Stress [...] st Contact Info) Description 04/26/2025 1:30 PM CANVAS MARKER Office Visit [facility] - Pulmonology & Sleep Medicine - Center #2 [facility] [place] [address] Werner Swift MD #2 [facility] [address] 05/31/2025 1:20 PM CANVAS MARKER Office Visit [facility] - Family Medicine - Center #2 [facility] [address] Liz Capellan, DO 2 [facility] [address] [place] [address] 06/02/2025 1:30 PM CANVAS MARKER Office Visit [facility] Endocrinology - [place] #2 [facility] [place] [address] Yasmin Restrepo MD #[address] [place] [address] documented as of this encounter Goals Goal [...] Zones/Action plan education. I will notify my Regional Director if my symptoms fall in the [...] - 19 04/27/2024 04/27/2024 04/27/2024 2:19 PM CANVAS MARKER Respiratory Rule-Out 07/24/2024 07/24/2024 025 2:29 PM CANVAS MARKER COVID - 19 07/24/2024 07/24/2024 07/24/2024 2:29 PM CANVAS MARKER COVID - 19 08/22/2024 08/22/2024 08/22/2024 11:4 6 PM CDT COVID - 19 09/03/2024 09/03/2024 09/03/2024 12:4 7 PM CDT Assessment Noted Time PHQ-9 Depression Total Score: 1 03/07/20 21 10:29 AM CDT documented as of this encounter Care Teams Underwriting Consultant Relationship Specialty Start Date End Date Keith Craft MD PCP - General Family Medicine 01/14/19 12/26/23 Liz Capellan DO 2 [facility] [place] [place] [address] PCP - General Family Medicine 12/27/23 Quang Locke DO Gastroenterology 01/18/16 [place] [address] [address] 05/25/21 Werner Swift MD #2 [place] [address] Consulting Physician Pulmonary Disease 01/30/22 Yasmin Restrepo MD #[address] [address] Consulting Physician Endocrinology 07/20/24 Jose Do MD #[address] [address] Consulting Physician Colon and Rectal Surgery 10/12/24 documented as of this encounter
--- OUTSIDE RECORDS SUMMARY | 2025-03-23 14:55 | XMS_ITS ---
Author Organization [facility] Address #1 [place] [address] Phone Care Team Providers Care Road Crossing Guard Name Role Phone Quang Locke DO Unavailable [phone] Silvio Schulte MD Unavailable [phone] Werner Swift MD Unavailable Liz Capellan DO Primary Care Provider [phone] Yasmin Restrepo MD Unavailable Jose Do MD Unavailable OnCall Chronic Condition Monitoring Status:Enrolled (Active) Start date:08/06/2024 Enrollment date:08/06/2024 Related social drivers of health:Social Connections, Alcohol Use, Tobacco Use, Physical Activity, Food Insecurity Continued Care and Services Coordination
--- OUTSIDE RECORDS SUMMARY | 2025-03-23 14:55 | XMS_ITS | Encounter Summary ---
Author Organization [facility] Address [address] [place] [address] Phone Care Team Providers Care Public Health Educator Name Role Phone Quang Locke Unavailable [phone] Keith Craft MD Primary Care Provider [phone] Bri Rollins RN Unavailable Unavailable Silvio Schulte MD Unavailable [phone] Bri Rollins RN Unavailable Unavailable Werner Swift MD Unavailable Liz Capellan DO Primary Care Provider [phone] Yasmin Restrepo MD Unavailable Jose Do MD Unavailable Reason for Visit * Reason Comments Medication Refill Encounter Details Date Type Department Care Team (Late st Contact Info) Description 06/29/2021 Refill [facility] - Family Medicine [facility] #2 [place] [address] Keith Craft MD #1 [place] [address] Medication Refill Social History Tobacco [...] Lillian Steiner RN - 06/29/2021 10:58 AM CLOTH MERCERIZING SUPERVISOR Medication failed the protocol, provider to review and approve the medication order if appropriate. Requested Prescriptions Pending Prescriptions Disp Refills Ventolin HFA 108 (90 Base) MCG/ACT Aerosol Solution [Pharmacy Med Name: VENTOLIN HFA 90 MCG [id number] (90 BAS Aerosol] 18 g 1 Sig: USE 2 PUFF(S) BY INHALATION ROUTE EVERY 4 HOURS NEEDED WHEEZING Short Acting Inhaled Beta-Agonists Protocol Passed - 06/29/2021 10:56 AM Passed - Visit with relevant provider in past 12 months or upcoming 90 days Recent Visits Date Type Provider Dept 05/25/21 Office Visit Marcin Anderson APRN, AIRCRAFT PILOT [facility] [place] 05/05/21 Office Visit Brie Denis, PAC [facility] [place] 04/14/21 Office Visit Keith Craft MD [facility] 03/23/21 Office Visit Keith Craft MD [facility] 02/07/21 Office Visit Keith Craft MD [facility] 02/03/21 Office Visit Brie Denis, PAC [facility] [place] 01/12/21 Office Visit Keith Craft MD [facility] [...] Dept 05/25/21 Office Visit Marcin Anderson APRN, [facility] 05/05/21 Office Visit Brie Denis, [facility] 04/14/21 Office Visit Keith Craft MD [facility] 03/23/21 Office Visit Keith Craft MD [facility] 02/07/21 Office Visit Keith Craft MD [facility] 02/03/21 Office Visit Brie Denis, [facility] [place] 01/12/21 Office Visit Keith Craft MD [facility] [...] Dept 05/25/21 Office Visit Marcin Anderson APRN, AIRCRAFT PILOT [facility] [place] 05/05/21 Office Visit Brie Denis, PAC [facility] [place] 04/14/21 Office Visit Keith Craft, [facility] [place] 03/23/21 Office Visit Keith Craft, [facility] [place] 02/07/21 Office Visit Keith Craft, [facility] 02/03/21 Office Visit Brie Denis, PAC [facility] [place] 01/12/21 [facility] 10/12/20 Office Visit Keith Craft, [facility] [place] 10/04/20 Office Visit Keith [facility], [facility] Showing recent visits within past 365 days and meeting all other requirements Future Appointments Date Type Provider Dept 08/14/21 Appointment [facility] Showing future appointments within next 90 days and meeting all other requirements H MERCERIZING SUPERVISOR documented in this encounter Plan of Treatment Upcoming Encounters Date Type Department Care Team (Late st Contact Info) Description 04/26/2025 1:30 PM CLOTH MERCERIZING SUPERVISOR Office Visit [facility] - Pulmonology & Sleep Medicine [facility] #2 [place] [address] Werner Swift MD #2 [place] [address] 05/31/2025 1:20 PM CLOTH MERCERIZING SUPERVISOR Office Visit [facility] - Family Medicine - [place] #2 [place] [address] Liz Capellan, DO [address] [facility]. [address] [place] [address] 06/02/2025 1:30 PM CLOTH MERCERIZING SUPERVISOR Office Visit [facility] - Endocrinology - [place] #[address] [place] [address] Yasmin Restrepo MD #2 [address] [facility] [address] [place] [address] documented as of this encounter Goals Goal [...] Zones/Action plan education. I will notify my Civil Engineering Director if my symptoms fall in the [...] - 19 07/23/2021 07/23/2021 07/24/2021 6:31 AM CLOTH MERCERIZING SUPERVISOR COVID - 19 10/19/2021 10/19/2021 10/20/2021 7:45 AM CDT Respiratory Rule Out - RPA 10/19/2021 10/19/2021 0 10/20/2021 2:10 PM CDT Stenotrophomonas maltophilia Comment:Must have a follow up respiratory sample to remove isolation/infection flag. 10/20/2021 10/20/2021 COVID - 19 04/20/2022 04/20/2022 04/30/2022 12:1 8 AM CLOTH MERCERIZING SUPERVISOR COVID - 19 07/18/2022 07/18/2022 07/28/2022 12:1 6 AM CLOTH MERCERIZING SUPERVISOR COVID - 19 08/21/2022 08/21/2022 08/22/2022 8:31 AM CDT Respiratory Rule Out - RPA 08/21/2022 08/21/2022 0 08/22/2022 3:21 PM CDT COVID - 19 04/18/2023 04/18/2023 04/28/2023 12:1 6 AM CLOTH MERCERIZING SUPERVISOR COVID - 19 07/13/2023 07/13/2023 07/23/2023 12:1 6 AM CLOTH MERCERIZING SUPERVISOR Respiratory Rule Out - RPA 03/17/2024 03/17/2024 1 3:36 PM CDT COVID - 19 04/27/2024 04/27/2024 04/27/2024 2:19 PM CLOTH MERCERIZING SUPERVISOR Respiratory Rule-Out 07/24/2024 07/24/2024 025 2:29 PM CLOTH MERCERIZING SUPERVISOR COVID - 19 07/24/2024 07/24/2024 07/24/2024 2:29 PM CLOTH MERCERIZING SUPERVISOR COVID - 19 08/22/2024 08/22/2024 08/22/2024 11:4 6 PM CDT COVID - 19 09/03/2024 09/03/2024 09/03/2024 12:4 7 PM CDT Assessment Noted Time PHQ-9 Depression Total Score: 1 03/07/20 21 10:29 AM CDT documented as of this encounter Care Teams Public Health Educator Relationship Specialty Start Date End Date Keith Craft MD PCP - General Family Medicine 01/14/19 12/26/23 Liz Capellan DO 2 [facility] [address] [place] [address] PCP - General Family Medicine 12/27/23 Quang Locke DO Gastroenterology 01/18/16 Bri Rollins, RN [place] Civil Engineering Director 03/07/21 05/22/23 [place] [address] [address] 05/25/21 Bri Rollins, RN [place] Nurse Civil Engineering Director 03/07/21 05/23/23 Werner Swift MD #2 [place] [address] Consulting Physician Pulmonary Disease 01/30/22 Ysamin Restrepo MD #[address] [address] Consulting Physician Endocrinology 07/20/24 Jose Do MD #[address] [address] Consulting Physician Colon and Rectal Surgery 10/12/24 documented as of this encounter
--- OUTSIDE RECORDS SUMMARY | 2025-03-23 14:55 | XMS_ITS | Encounter Summary ---
Author Organization [facility] Address [address] [place] [address] Phone Care Team Providers Care Major Assembler Name Role Phone Quang Locke Unavailable [phone] Keith Craft MD Primary Care Provider [phone] Bri Rollins RN Unavailable Unavailable Silvio Schulte MD Unavailable [phone] Bri Rollins RN Unavailable Unavailable Werner Swift MD Unavailable Liz Capellan DO Primary Care Provider [phone] Yasmin Restrepo MD Unavailable Jose Do MD Unavailable Reason for Visit * Reason Comments Medication Refill Encounter Details Date Type Department Care Team (Late st Contact Info) Description 08/17/2021 Refill [facility] Medical [address] [place] [address] Keith Craft MD #1 [place] [address] Medication Refill Social History Tobacco Use Types [...] st Contact Info) Description 04/26/2025 1:30 PM SALES AND MARKETING ADMINISTRATOR Office Visit [facility] - Pulmonology & Sleep Medicine [facility] #2 [place] [address] Werner Swift MD #2 [place] [address] 05/31/2025 1:20 PM SALES AND MARKETING ADMINISTRATOR Office Visit [facility] - Family Medicine - [place] #[address] [place] [address] Liz Capellan, DO 2 [facility] [address] [place] [address] 06/02/2025 1:30 PM SALES AND MARKETING ADMINISTRATOR Office Visit [facility] - Endocrinology - [place] #[address] [facility] [facility] [address] Yasmin Restrepo MD #2 [facility] [address] [place] [address] documented as of this encounter Goals Goal [...] plan education. I will notify my Material Specialist if my symptoms fall in the [...] 04/20/2022 04/20/2022 04/30/2022 12:1 8 AM SALES AND MARKETING ADMINISTRATOR COVID - 19 07/18/2022 07/18/2022 07/28/2022 12:1 6 AM SALES AND MARKETING ADMINISTRATOR COVID - 19 08/21/2022 08/21/2022 08/22/2022 8:31 AM CDT Respiratory Rule Out - RPA 08/21/2022 08/21/2022 0 08/22/2022 3:21 PM CDT COVID - 19 04/18/2023 04/18/2023 04/28/2023 12:1 6 AM SALES AND MARKETING ADMINISTRATOR COVID - 19 07/13/2023 07/13/2023 07/23/2023 12:1 6 AM SALES AND MARKETING ADMINISTRATOR Respiratory Rule Out - RPA 03/17/2024 03/17/2024 1 3:36 PM CDT COVID - 19 04/27/2024 04/27/2024 04/27/2024 2:19 PM SALES AND MARKETING ADMINISTRATOR Respiratory Rule-Out 07/24/2024 07/24/2024 025 2:29 PM SALES AND MARKETING ADMINISTRATOR COVID - 19 07/24/2024 07/24/2024 07/24/2024 2:29 PM SALES AND MARKETING ADMINISTRATOR COVID - 19 08/22/2024 08/22/2024 08/22/2024 11:4 6 PM CDT COVID - 19 09/03/2024 09/03/2024 09/03/2024 12:4 7 PM CDT Assessment Noted Time PHQ-9 Depression Total Score: 1 03/07/20 21 10:29 AM CDT documented as of this encounter Care Teams Major Assembler Relationship Specialty Start Date End Date Keith Craft MD PCP - General Family Medicine 01/14/19 12/26/23 Liz Capellan DO 2 [facility] [address] [place] [address] PCP - General Family Medicine 12/27/23 Quang Locke DO Gastroenterology 01/18/16 Bri Rollins, KATEY [place] Material Specialist 03/07/21 05/22/23 [place] [address] [address] 05/25/21 Bri Rollins, [place] Nurse Material Specialist 03/07/21 05/23/23 Werner Swift MD #2 [facility] [place] [address] Consulting Physician Pulmonary Disease 01/30/22 Yasmin Restrepo MD #[address] [address] Consulting Physician Endocrinology 07/20/24 Jose Do MD #[address] [address] Consulting Physician Colon and Rectal Surgery 10/12/24 documented as of this encounter
--- OUTSIDE RECORDS SUMMARY | 2025-03-23 14:55 | XMS_ITS | Encounter Summary ---
Author Organization [facility] Address [address] [place] [address] Phone Care Team Providers Care Counselor Aide Name Role Phone Quang Locke Unavailable [phone] Keith Craft MD Primary Care Provider [phone] Bri Rollins RN Unavailable Unavailable Silvio Schulte MD Unavailable [phone] Bri Rollins RN Unavailable Unavailable Werner Swift MD Unavailable Liz Capellan DO Primary Care Provider [phone] Yasmin Restrepo MD Unavailable Jose Do MD Unavailable Reason for Visit * Reason Comments Medication Refill Encounter Details Date Type Department Care Team (Late st Contact Info) Description 07/10/2021 Refill [facility] Family Medicine [facility] #2 [place] [address] Keith Craft MD #1 [place] [address] Medication Refill Social History Tobacco [...] Dept 05/25/21 Office Visit Marcin Anderson APRN, LEPIDOPTERIST [facility] [place] 05/05/21 Office Visit Brie Denis, PAC [facility] [place] 04/14/21 Office Visit Keith Craft MD [facility] 03/23/21 Office Visit Keith Craft MD [facility] 02/07/21 Office Visit Keith Craft MD [facility] [place] 02/03/21 Office Visit Brie Denis, PAC [facility] [place] 01/12/21 Office Visit Keith Craft MD [facility] 10/12/20 Office Visit Keith Craft MD [facility] 10/04/20 Office Visit Keith Craft MD [facility] Showing recent visits within past 365 days and meeting all other requirements Future Appointments Date Type Provider Dept 08/14/21 Appointment Keith Craft MD [facility] Showing future appointments within next 90 days and meeting all other requirements KEN RAISER documented in this encounter Plan of Treatment Upcoming Encounters Date Type Department Care Team (Late st Contact Info) Description 04/26/2025 1:30 PM CHICKEN RAISER Office Visit [facility] - Pulmonology & [facility] Medicine - [place] #2 [facility] [place] [address] Werner Swift MD #2 [place] [address] 05/31/2025 1:20 PM CHICKEN RAISER Office Visit [facility] - Family Medicine - [place] #2 [facility] [address] Liz Capellan, DO 2 [facility] [address] [place] [address] 06/02/2025 1:30 PM CHICKEN RAISER Office [facility] - Endocrinology - [place] #2 [facility] [place] [address] Yasmin Restrepo MD #[address] [place] [address] documented as of this encounter Goals Goal [...] Zones/Action plan education. I will notify my Rail Equipment Operator if my symptoms fall in [...] - 19 07/23/2021 07/23/2021 07/24/2021 6:31 AM CHICKEN RAISER COVID - 19 10/19/2021 10/19/2021 10/20/2021 7:45 AM CDT Respiratory Rule Out - RPA 10/19/2021 10/19/2021 0 10/20/2021 2:10 PM CDT Stenotrophomonas maltophilia Comment:Must have a follow up respiratory sample to remove isolation/infection flag. 10/20/2021 10/20/2021 COVID - 19 04/20/2022 04/20/2022 04/30/2022 12:1 8 AM CHICKEN RAISER COVID - 19 07/18/2022 07/18/2022 07/28/2022 12:1 6 AM CHICKEN RAISER COVID - 19 08/21/2022 08/21/2022 08/22/2022 8:31 AM CDT Respiratory Rule Out - RPA 08/21/2022 08/21/2022 0 08/22/2022 3:21 PM CDT COVID - 19 04/18/2023 04/18/2023 04/28/2023 12:1 6 AM CHICKEN RAISER COVID - 19 07/13/2023 07/13/2023 07/23/2023 12:1 6 AM CHICKEN RAISER Respiratory Rule Out - RPA 03/17/2024 03/17/2024 1 3:36 PM CDT COVID - 19 04/27/2024 04/27/2024 04/27/2024 2:19 PM CHICKEN RAISER Respiratory Rule-Out 07/24/2024 07/24/2024 025 2:29 PM CHICKEN RAISER COVID - 19 07/24/2024 07/24/2024 07/24/2024 2:29 PM CHICKEN RAISER COVID - 19 08/22/2024 08/22/2024 08/22/2024 11:4 6 PM CDT COVID - 19 09/03/2024 09/03/2024 09/03/2024 12:4 7 PM CDT Assessment Noted Time PHQ-9 Depression Total Score: 1 03/07/20 21 10:29 AM CDT documented as of this encounter Care Teams Counselor Aide Relationship Specialty Start Date End Date Keith Craft MD PCP - General Family Medicine 01/14/19 12/26/23 Liz Capellan DO [address] [address] PCP - General Family Medicine 12/27/23 Quang Locke DO Gastroenterology 01/18/16 Bri Rollins, RN [place] Rail Equipment Operator 03/07/21 05/22/23 [place] [id number] [address] 05/25/21 Rollins, Bri M, RN [place] Nurse Rail Equipment Operator 03/07/21 05/23/23 Werner Swift MD #2 [place] [address] Consulting Physician Pulmonary Disease 01/30/22 Yasmin Restrepo MD #[address] [address] Consulting Physician Endocrinology 07/20/24 Jose Do MD #[address] [address] Consulting Physician Colon and Rectal Surgery 10/12/24 documented as of this encounter
--- OUTSIDE RECORDS SUMMARY | 2025-03-23 14:55 | XMS_ITS | Encounter Summary ---
Author Organization [facility] Address [address] [place] [address] Phone Care Team Providers Care Unit Supervisor Name Role Phone Quang Locke Unavailable [phone] Keith Craft MD Primary Care Provider [phone] Bri Rollins RN Unavailable Unavailable Silvio Schulte MD Unavailable [phone] Bri Rollins RN Unavailable Unavailable Werner Swift MD Unavailable Liz Capellan DO Primary Care Provider [phone] Yasmin Restrepo MD Unavailable Jose Do MD Unavailable Reason for Visit * Reason Comments Medication Refill Encounter Details Date Type Department Care Team (Late st Contact Info) Description 05/18/2021 Refill [facility] #2 [place] [address] Keith Craft MD #1 [place] [address] Medication Refill Social History Tobacco [...] COVID-19? No / Unsure 05/05/2021 3:02 PM GUIDE FOREIGN TOUR documented as of this encounter Miscellaneous Notes [...] 05/05/21 Office Visit Brie Denis, PAC [facility] 04/14/21 Office Visit Keith Craft MD [...] Provider Dept 08/14/21 Appointment Keith Craft MD [facility] Showing future appointments within next 90 days and meeting all other requirements Passed - HgA1C on record in the past 6 months HGB-A1C Date Value Ref Range Status 04/18/2021 6.3 (H) 4.0 - 6.0 % Final Passed - GFR on record in past 6 months GFR, EST. NONAFRICAN Date Value Ref Range Status 04/18/2021 >60 >=60 Final E FOREIGN TOUR documented in this encounter Plan of Treatment Upcoming Encounters Date Type Department Care Team (Late st Contact Info) Description 04/26/2025 1:30 PM GUIDE FOREIGN TOUR Office Visit [facility] Medical [facility] - Pulmonology & Sleep Medicine - [place] #2 [place] [address] Werner Swift MD #2 [place] [address] 05/31/2025 1:20 PM GUIDE FOREIGN TOUR Office Visit [facility] - Family Medicine - [place] #2 [facility] [address] Liz Capellan, DO 2 [facility]. [address] [place] [address] 06/02/2025 1:30 PM GUIDE FOREIGN TOUR Office Visit [facility] Medical [facility] - Endocrinology - [place] #[address] [place] [address] Yasmin Restrepo MD #2 [facility] [address] [place] [address] documented as of this encounter Goals Goal [...] Zones/Action plan education. I will notify my Pest Control Worker Helper if my symptoms fall in the y ellow zone . I will consider receiving an influenza and pneumonia vaccination, if applicable. -I will call the office if I experience any symptoms listed above to discuss at home management options. documented as of this encounter Visit Diagnoses Diagnosis Type 2 diabetes mellitus with diabetic neuropathy, unspecified documented in this encounter Additional Health Concerns Infection Onset Date Last Indicated Resolved Time COVID - 19 07/23/2021 07/23/2021 07/24/2021 6:31 AM GUIDE FOREIGN TOUR COVID - 19 10/19/2021 10/19/2021 10/20/2021 7:45 AM CDT Respiratory Rule Out - RPA 10/19/2021 10/19/2021 0 10/20/2021 2:10 PM CDT Stenotrophomonas maltophilia Comment:Must have a follow up respiratory sample to remove isolation/infection flag. 10/20/2021 10/20/2021 COVID - 19 04/20/2022 04/20/2022 04/30/2022 12:1 8 AM GUIDE FOREIGN TOUR COVID - 19 07/18/2022 07/18/2022 07/28/2022 12:1 6 AM GUIDE FOREIGN TOUR COVID - 19 08/21/2022 08/21/2022 08/22/2022 8:31 AM CDT Respiratory Rule Out - RPA 08/21/2022 08/21/2022 0 08/22/2022 3:21 PM CDT COVID - 19 04/18/2023 04/18/2023 04/28/2023 12:1 6 AM GUIDE FOREIGN TOUR COVID - 19 07/13/2023 07/13/2023 07/23/2023 12:1 6 AM GUIDE FOREIGN TOUR Respiratory Rule Out - RPA 03/17/2024 03/17/2024 1 3:36 PM CDT COVID - 19 04/27/2024 04/27/2024 04/27/2024 2:19 PM GUIDE FOREIGN TOUR Respiratory Rule-Out 07/24/2024 07/24/2024 025 2:29 PM GUIDE FOREIGN TOUR COVID - 19 07/24/2024 07/24/2024 07/24/2024 2:29 PM GUIDE FOREIGN TOUR COVID - 19 08/22/2024 08/22/2024 08/22/2024 11:4 6 PM CDT COVID - 19 09/03/2024 09/03/2024 09/03/2024 12:4 7 PM CDT Assessment Noted Time PHQ-9 Depression Total Score: 1 03/07/20 21 10:29 AM CDT documented as of this encounter Care Teams Unit Supervisor Relationship Specialty Start Date End Date Keith Craft MD PCP - General Family Medicine 01/14/19 12/26/23 Liz Capellan DO [address] [address] PCP - General Family Medicine 12/27/23 Quang Locke DO Gastroenterology 01/18/16 Bri Rollins RN [place] Pest Control Worker Helper 03/07/21 05/22/23 [place] [address] [address] 05/25/21 Bri Rollins, RN [place] Nurse Pest Control Worker Helper 03/07/21 05/23/23 Werner Swift MD #2 [place] [address] Consulting Physician Pulmonary Disease 01/30/22 Yasmin Restrepo MD #[address] [address] Consulting Physician Endocrinology 07/20/24 Jose Do MD #[address] [address] Consulting Physician Colon and Rectal Surgery 10/12/24 documented as of this encounter
--- OUTSIDE RECORDS SUMMARY | 2025-03-23 14:55 | XMS_ITS | Encounter Summary ---
Author Organization [facility] Address [address] [place] [address] Phone Care Team Providers Care Room Service Bellhop Name Role Phone Quang Locke Unavailable [phone] Keith Craft MD Primary Care Provider [phone] Bri Rollins RN Unavailable Unavailable Silvio Schulte MD Unavailable [phone] Bri Rollins RN Unavailable Unavailable Werner Swift MD Unavailable Liz Capellan DO Primary Care Provider [phone] Yasmin Restrepo MD Unavailable Jose Do MD Unavailable Reason for Visit * Reason Comments Medication Refill Encounter Details Date Type Department Care Team (Late st Contact Info) Description 03/20/2023 Refill [facility] [place] [address] [place] [address] Keith Craft MD #1 [place] [address] Medication Refill Social History Tobacco Use Types [...] st Contact Info) Description 04/26/2025 1:30 PM CURRICULUM SUPERVISOR Office Visit [facility] - Pulmonology & Sleep Medicine [facility] #2 [place] [address] Werner Swift MD #2 [place] [address] 05/31/2025 1:20 PM CURRICULUM SUPERVISOR Office Visit [facility] Medical [facility] - Family Medicine - [place] #2 [place] [address] Liz Capellan, DO 2 [facility]. [address] [place] [address] 06/02/2025 1:30 PM CURRICULUM SUPERVISOR Office Visit [facility] - Endocrinology - [place] #2 [place] [address] Yasmin Restrepo MD #2 [facility] [address] [place] [address] documented as of this encounter Goals Goal [...] Zones/Action plan education. I will notify my Trench Digger Helper if my symptoms fall in the [...] 19 04/18/2023 04/18/2023 04/28/2023 12:1 6 AM CURRICULUM SUPERVISOR COVID - 19 07/13/2023 07/13/2023 07/23/2023 12:1 6 AM CURRICULUM SUPERVISOR Respiratory Rule Out - RPA 03/17/2024 03/17/2024 1 3:36 PM CDT COVID - 19 04/27/2024 04/27/2024 04/27/2024 2:19 PM CURRICULUM SUPERVISOR Respiratory Rule-Out 07/24/2024 07/24/2024 025 2:29 PM CURRICULUM SUPERVISOR COVID - 19 07/24/2024 07/24/2024 07/24/2024 2:29 PM CURRICULUM SUPERVISOR COVID - 19 08/22/2024 08/22/2024 08/22/2024 11:4 6 PM CDT COVID - 19 09/03/2024 09/03/2024 09/03/2024 12:4 7 PM CDT Assessment Noted Time PHQ-9 Depression Total Score: 1 03/07/20 21 10:29 AM CDT documented as of this encounter Care Teams Room Service Bellhop Relationship Specialty Start Date End Date Keith Craft MD PCP - General Family Medicine 01/14/19 12/26/23 Liz Capellan DO 2 [facility] [address] [address] PCP - General Family Medicine 12/27/23 Quang Locke DO Gastroenterology 01/18/16 Bri Rollins, RN [place] Trench Digger Helper 03/07/21 05/22/23 [place] [address] [address] 05/25/21 Bri Rollins RN [place] Nurse Trench Digger Helper 03/07/21 05/23/23 Werner Swift MD #2 [place] [address] Consulting Physician Pulmonary Disease 01/30/22 Yasmin Restrepo MD #[address] [phone] Consulting Physician Endocrinology 07/20/24 Jose Do MD #[address] [address] Consulting Physician Colon and Rectal Surgery 10/12/24 documented as of this encounter
--- OUTSIDE RECORDS SUMMARY | 2025-03-23 14:55 | XMS_ITS | Encounter Summary ---
Author Organization [facility] Address [address] [place] [address] Phone Care Team Providers Care Transportation Attendant Name Role Phone Quang Locke Unavailable [phone] Keith Craft MD Primary Care Provider [phone] Bri Rollins RN Unavailable Unavailable Silvio Schulte MD Unavailable [phone] Bri Rollins RN Unavailable Unavailable Werner Swift MD Unavailable Liz Capellan DO Primary Care Provider [phone] Yasmin Restrepo MD Unavailable Jose Do MD Unavailable Reason for Visit * Reason Comments Medication Refill Encounter Details Date Type Department Care Team (Late st Contact Info) Description 10/02/2021 Refill [facility] Medical [address] [place] [address] Keith Craft MD #1 [place] [address] Medication Refill Social History Tobacco Use Types [...] information for this order ergocalciferol (VITAMIN D) 32677 UNIT Capsule [Pharmacy Med Name: VITAMIN D [id number] CAPSULE] 12 Capsule 0 Sig: TAKE ONE CAPSULE BY MOUTH ONE TIME WEEKLY There is no refill protocol information for this order documented in this encounter Plan of Treatment Upcoming Encounters Date Type Department Care Team ([facility] st Contact Info) Description 04/26/2025 1:30 PM INSTRUCTOR PRODUCT INSPECTION Office Visit [facility] - Pulmonology & Sleep Medicine - [place] #2 [place] [address] Werner Swift MD #2 [place] [address] 05/31/2025 1:20 PM INSTRUCTOR PRODUCT INSPECTION Office Visit [facility] - Family Medicine - [place] #2 [place] [address] Liz Capellan, DO 2 [facility] [address] [place] [address] 06/02/2025 1:30 PM INSTRUCTOR PRODUCT INSPECTION Office Visit [facility] Endocrinology - [place] #2 [place] [address] Yasmin Restrepo MD #[address] [address] documented as of this encounter Goals Goal [...] Zones/Action plan education. I will notify my Information Receptionist if my symptoms fall in the y [...] 19 04/20/2022 04/20/2022 04/30/2022 12:1 8 AM INSTRUCTOR PRODUCT INSPECTION COVID - 19 07/18/2022 07/18/2022 07/28/2022 12:1 6 AM INSTRUCTOR PRODUCT INSPECTION COVID - 19 08/21/2022 08/21/2022 08/22/2022 8:31 AM CDT Respiratory Rule Out - RPA 08/21/2022 08/21/2022 0 08/22/2022 3:21 PM CDT COVID - 19 04/18/2023 04/18/2023 04/28/2023 12:1 6 AM INSTRUCTOR PRODUCT INSPECTION COVID - 19 07/13/2023 07/13/2023 07/23/2023 12:1 6 AM INSTRUCTOR PRODUCT INSPECTION Respiratory Rule Out - RPA 03/17/2024 03/17/2024 1 3:36 PM CDT COVID - 19 04/27/2024 04/27/2024 04/27/2024 2:19 PM INSTRUCTOR PRODUCT INSPECTION Respiratory Rule-Out 07/24/2024 07/24/2024 025 2:29 PM INSTRUCTOR PRODUCT INSPECTION COVID - 19 07/24/2024 07/24/2024 07/24/2024 2:29 PM INSTRUCTOR PRODUCT INSPECTION COVID - 19 08/22/2024 08/22/2024 08/22/2024 11:4 6 PM CDT COVID - 19 09/03/2024 09/03/2024 09/03/2024 12:4 7 PM CDT Assessment Noted Time PHQ-9 Depression Total Score: 1 03/07/20 21 10:29 AM CDT documented as of this encounter Care Teams Transportation Attendant Relationship Specialty Start Date End Date Keith Craft MD PCP - General Family Medicine 01/14/19 12/26/23 Liz Capellan DO [address] [id number] PCP - General Family Medicine 12/27/23 Quang Locke DO Gastroenterology 01/18/16 Bri Rollins, RN [place] Information Receptionist 03/07/21 05/22/23 [place] [address] [address] 05/25/21 Bri oRllins, RN [place] Nurse Information Receptionist 03/07/21 05/23/23 Werner Swift MD #2 [place] [address] Consulting Physician Pulmonary Disease 01/30/22 Yasmin Restrepo MD #[address] [address] Consulting Physician Endocrinology 07/20/24 Jose Do MD #[address] [address] Consulting Physician Colon and Rectal Surgery 10/12/24 documented as of this encounter
--- OUTSIDE RECORDS SUMMARY | 2025-03-23 14:55 | XMS_ITS | Encounter Summary ---
Author Organization [facility] Address [address] [place] [address] Phone Care Team Providers Care Zoogler Name Role Phone Quang Locke Unavailable [phone] Keith Craft MD Primary Care Provider [phone] Bri Rollins RN Unavailable Unavailable Silvio Schulte MD Unavailable [phone] Bri Rollins RN Unavailable Unavailable Werner Swift MD Unavailable Liz Capellan DO Primary Care Provider [phone] Yasmin Restrepo MD Unavailable Jose Do MD Unavailable Reason for Visit * Reason Comments Medication Refill Encounter Details Date Type Department Care Team (Late st Contact Info) Description 08/07/2021 Refill [facility] #2 [place] [address] Keith Craft MD #1 [place] [address] Medication Refill Social History Tobacco [...] COVID-19? No / Unsure 07/31/2021 3:41 PM TOUR DIRECTOR documented as of this encounter Miscellaneous [...] [facility] 05/25/21 Office Visit Marcin Anderson, THREADER OPERATOR, AUTO DAMAGE ESTIMATOR [facility] [place] 05/05/21 Office Visit Brie Denis, NICOLE [facility] 04/14/21 Office Visit Keith Craft MD [facility] 03/23/21 Office Visit [facility] 02/07[facility]21 Office Visit Keith Craft MD [facility] 02/03/21 Office Visit Brie Denis PAC [facility] 01/12/21 Office Visit Keith Craft MD [facility] 10/12/20 [facility] 10/04/20 Office Visit Keith Craft MD [facility] Showing recent visits within past 365 days and meeting all other requirements Future Appointments Date Type Provider Dept 08/14/21 Appointment Keith Craft MD [facility] [place] Showing future appointments within next 90 days and meeting all other requirements documented in this encounter Plan of Treatment Upcoming Encounters Date Type Department Care Team (Late st Contact Info) Description 04/26/2025 1:30 PM TOUR DIRECTOR Office Visit [facility] Medical [facility] - Pulmonology & Sleep Medicine [facility] #2 [place] [address] Werner Swift MD #2 [place] [address] 05/31/2025 1:20 PM TOUR DIRECTOR Office Visit [facility] - Family Medicine - [place] #2 [place] [address] Liz Capellan, DO [address] [address] 06/02/2025 1:30 PM TOUR DIRECTOR Office Visit [facility] Endocrinology [facility] #2 [place] [address] Yasmin Restrepo MD #[address] [phone] documented as of this encounter Goals Goal [...] Zones/Action plan education. I will notify my Archivist Nonprofit Foundation if my symptoms fall in the y [...] 19 04/20/2022 04/20/2022 04/30/2022 12:1 8 AM TOUR DIRECTOR COVID - 19 07/18/2022 07/18/2022 07/28/2022 12:1 6 AM TOUR DIRECTOR COVID - 19 08/21/2022 08/21/2022 08/22/2022 8:31 AM CDT Respiratory Rule Out - RPA 08/21/2022 08/21/2022 0 08/22/2022 3:21 PM CDT COVID - 19 04/18/2023 04/18/2023 04/28/2023 12:1 6 AM TOUR DIRECTOR COVID - 19 07/13/2023 07/13/2023 07/23/2023 12:1 6 AM TOUR DIRECTOR Respiratory Rule Out - RPA 03/17/2024 03/17/2024 1 3:36 PM CDT COVID - 19 04/27/2024 04/27/2024 04/27/2024 2:19 PM TOUR DIRECTOR Respiratory Rule-Out 07/24/2024 07/24/2024 025 2:29 PM TOUR DIRECTOR COVID - 19 07/24/2024 07/24/2024 07/24/2024 2:29 PM TOUR DIRECTOR COVID - 19 08/22/2024 08/22/2024 08/22/2024 11:4 6 PM CDT COVID - 19 09/03/2024 09/03/2024 09/03/2024 12:4 7 PM CDT Assessment Noted Time PHQ-9 Depression Total Score: 1 03/07/20 21 10:29 AM CDT documented as of this encounter Care Teams Zoogler Relationship Specialty Start Date End Date Keith Craft MD PCP - General Family Medicine 01/14/19 12/26/23 Liz Capellan DO [address] [address] PCP - General Family Medicine 12/27/23 Quang Locke DO Gastroenterology 01/18/16 Bri Rollins RN [place] Archivist [employer]profit Foundation 03/07/21 05/22/23 [place] [address] [address] 05/25/21 Bri Rollins RN [place] Nurse Archivist [employer]profit Foundation 03/07/21 05/23/23 Werner Swift MD #2 [place] [address] Consulting Physician Pulmonary Disease 01/30/22 Yasmin Restrepo MD #2 [facility] [address] [place] [address] Consulting Physician Endocrinology 07/20/24 Jose Do MD #2 [facility] [address] [place] [address] Consulting Physician Colon and Rectal Surgery 10/12/24 documented as of this encounter
--- OUTSIDE RECORDS SUMMARY | 2025-03-23 14:55 | XMS_ITS | Encounter Summary ---
Author Organization [facility] Address [address] [place] [address] Phone Care Team Providers Care Instrumental Music Teacher Name Role Phone Quang Locke Unavailable [phone] Keith Craft MD Primary Care Provider [phone] Bri Rollins RN Unavailable Unavailable Silvio Schulte MD Unavailable [phone] Bri Rollins RN Unavailable Unavailable Werner Swift MD Unavailable Liz Capellan DO Primary Care Provider [phone] Yasmin Restrepo MD Unavailable Jose Do MD Unavailable Encounter Details Date Type Department Care Team (Late st Contact Info) Description 04/22/2023 Telephone [facility] [address] [place] [address] Keith Craft MD [address] [place] [address] Social History Tobacco Use Types [...] amitriptyline is ok With levaquine is fine. SORTER * Telephone Encounter - Kunal Garcia RN [...] discontinue? Please review the following potential major [id number] interactions: DULoxetine and amitriptyline Duloxetine may increase [...] to P Clinical Support Triage or call [facility] [phone] option 4 for a nurse. Response is required within 24 hours to meet regulatory requirements. Thank you SORTER documented in this encounter Plan of Treatment Upcoming Encounters Date Type Department Care Team (Late st Contact Info) Description 04/26/2025 1:30 PM LEAF SORTER Office [facility] - Pulmonology & [facility] Medicine - [place] [address] [place] [address] Werner Swift MD #2 [place] [address] 05/31/2025 1:20 PM LEAF SORTER Office Visit [facility] - Family Medicine - [place] [address]2 [facility] [address] Liz Capellan, DO 2 [facility] [address] [place] [address] 06/02/2025 1:30 PM LEAF SORTER Office Visit [facility] - Endocrinology - [place] [address] [place] [address] Yasmin Restrepo MD #2 [facility] [address] [place] [address] documented as of this encounter Goals Goal [...] Zones/Action plan education. I will notify my Tail Sawyer if my symptoms fall in the y [...] 19 04/18/2023 04/18/2023 04/28/2023 12:1 6 AM LEAF SORTER COVID - 19 07/13/2023 07/13/2023 07/23/2023 12:1 6 AM LEAF SORTER Respiratory Rule Out - RPA 03/17/2024 03/17/2024 1 3:36 PM CDT COVID - 19 04/27/2024 04/27/2024 04/27/2024 2:19 PM LEAF SORTER Respiratory Rule-Out 07/24/2024 07/24/2024 025 2:29 PM LEAF SORTER COVID - 19 07/24/2024 07/24/2024 07/24/2024 2:29 PM LEAF SORTER COVID - 19 08/22/2024 08/22/2024 08/22/2024 11:4 6 PM CDT COVID - 19 09/03/2024 09/03/2024 09/03/2024 12:4 7 PM CDT Assessment Noted Time PHQ-9 Depression Total Score: 1 03/07/20 10:29 AM CDT documented as of this encounter Care Teams Instrumental Music Teacher Relationship Specialty Start Date End Date Keith Craft MD PCP - General Family Medicine 01/14/19 12/26/23 Liz Capellan DO [address] [address] PCP - General Family Medicine 12/27/23 Quang Locke DO Gastroenterology 01/18/16 Bri Rollins RN [place] Tail Sawyer 03/07/21 05/22/23 [place] [id number] [address] 05/25/21 Bri Rollins RN [place] Nurse Tail Sawyer 03/07/21 05/23/23 Werner Swift MD #2 [place] [address] Consulting Physician Pulmonary Disease 01/30/22 Yasmin Restrepo MD #[address] [address] Consulting Physician Endocrinology 07/20/24 Jose Do MD #[address] [address] Consulting Physician Colon and Rectal Surgery 10/12/24 documented as of this encounter
--- OUTSIDE RECORDS SUMMARY | 2025-03-23 14:55 | XMS_ITS | Encounter Summary ---
Author Organization [facility] Address [address] [place] [address] Phone Care Team Providers Care Administrative Library Assistant Name Role Phone Quang Locke Unavailable [phone] Keith Craft MD Primary Care Provider [phone] Bri Rollins RN Unavailable Unavailable Silvio Schulte MD Unavailable [phone] Bri Rollins RN Unavailable Unavailable Werner Swift MD Unavailable Liz Capellan DO Primary Care Provider [phone] Yasmin Restrepo MD Unavailable Jose Do MD Unavailable Reason for Visit * Reason Comments Medication Refill Encounter Details Date Type Department Care Team (Late st Contact Info) Description 10/16/2021 Refill [facility] - Family Medicine [facility] [address] [place] [address] Keith Craft MD [address]1 [place] [address] Medication Refill Social History Tobacco [...] Dept 10/05/21 Office Visit Keith Craft MD [facility] [place] 09/08/21 Office Visit Brie Denis, [facility] [place] 08/14/21 Office Visit Keith Craft MD [facility] 07/31/21 Office Visit Keith Craft MD [facility] [place] 05/25/21 Office Visit Marcin Anderson APRN, EQUIPMENT TESTER [facility] [place] 05/05/21 Office Visit Brie Denis, PAC [facility] [place] 04/14/21 Office Visit Keith Craft MD [facility] 03/23/21 Office Visit Keith Craft, [facility] [place] 02/07/21 Office Visit Keith Craft MD [facility] 02/03/21 Office Visit Brie Denis, PAC [facility] [place] Showing recent visits within past 730 days and meeting all other requirements Future Appointments Date Type Provider Dept 10/24/21 [facility]ointment [facility] 11/03/21 Appointment Keith Craft MD [facility] [place] 12/19/21 Appointment Keith Craft MD [facility] [...] st Contact Info) Description 04/26/2025 1:30 PM LIGHTER CAPTAIN Office Visit [facility] - Pulmonology & Sleep Medicine - [place] [address] [place] [address] Werner Swift MD #2 [place] [address] 05/31/2025 1:20 PM LIGHTER CAPTAIN Office Visit [facility] - Family Medicine - [place] [address] [place] [address] Liz Capellan, DO [address] [address] 06/02/2025 1:30 PM LIGHTER CAPTAIN Office Visit [facility] Medical [facility] - Endocrinology - [place] [address] [place] [address] Yasmin Restrepo MD [address] [phone] documented as of this encounter Goals Goal [...] Zones/Action plan education. I will notify my Mva Still Operator if my symptoms fall in the [...] 19 04/20/2022 04/20/2022 04/30/2022 12:1 8 AM LIGHTER CAPTAIN COVID - 19 07/18/2022 07/18/2022 07/28/2022 12:1 6 AM LIGHTER CAPTAIN COVID - 19 08/21/2022 08/21/2022 08/22/2022 8:31 AM CDT Respiratory Rule Out - RPA 08/21/2022 08/21/2022 0 08/22/2022 3:21 PM CDT COVID - 19 04/18/2023 04/18/2023 04/28/2023 12:1 6 AM LIGHTER CAPTAIN COVID - 19 07/13/2023 07/13/2023 07/23/2023 12:1 6 AM LIGHTER CAPTAIN Respiratory Rule Out - RPA 03/17/2024 03/17/2024 1 3:36 PM CDT COVID - 19 04/27/2024 04/27/2024 04/27/2024 2:19 PM LIGHTER CAPTAIN Respiratory Rule-Out 07/24/2024 07/24/2024 025 2:29 PM LIGHTER CAPTAIN COVID - 19 07/24/2024 07/24/2024 07/24/2024 2:29 PM LIGHTER CAPTAIN COVID - 19 08/22/2024 08/22/2024 08/22/2024 11:4 6 PM CDT COVID - 19 09/03/2024 09/03/2024 09/03/2024 12:4 7 PM CDT Assessment Noted Time PHQ-9 Depression Total Score: 1 03/07/20 21 10:29 AM CDT documented as of this encounter Care Teams Administrative Library Assistant Relationship Specialty Start Date End Date Keith Craft MD PCP - General Family Medicine 01/14/19 12/26/23 Liz Capellan DO [address] [address] PCP - General Family Medicine 12/27/23 Quang Locke DO Gastroenterology 01/18/16 Bri Rollins, RN [place] Mva Still Operator 03/07/21 05/22/23 [place] [id number] [address] 05/25/21 Bri Rollins RN [place] Nurse Mva Still Operator 03/07/21 05/23/23 Werner Swift MD #2 [place] [address] Consulting Physician Pulmonary Disease 01/30/22 Yasmin Restrepo MD #[address] [phone] Consulting Physician Endocrinology 07/20/24 Jose Do MD #[address] [address] Consulting Physician Colon and Rectal Surgery 10/12/24 documented as of this encounter
--- OUTSIDE RECORDS SUMMARY | 2025-03-23 14:55 | XMS_ITS | Encounter Summary ---
Author Organization [facility] Address [address] [place] [address] Phone Care Team Providers Care Operator Receptionist Name Role Phone Quang Locke Unavailable [phone] Keith Craft MD Primary Care Provider [phone] Bri Rollins RN Unavailable Unavailable Silvio Schulte MD Unavailable [phone] Bri Rollins RN Unavailable Unavailable Werner Swift MD Unavailable Liz Capellan DO Primary Care Provider [phone] Yasmin Restrepo MD Unavailable Jose Do MD Unavailable Reason for Visit * Reason Comments Medication Refill Encounter Details Date Type Department Care Team (Late st Contact Info) Description 02/18/2023 Refill [facility] - Family Medicine [facility] #[address] [place] [address] Keith Craft MD [address] [place] [address] Medication Refill Social History Tobacco [...] Dept 12/10/22 Office Visit Keith Craft MD [facility] [place] 09/10/22 Office Visit Keith Craft MD [facility] 07/18/22 Office Visit Kerri Kauffman, MOBILITY SPECIALIST, TELEGRAPHER AGENT [facility] [place] 06/07/22 Office Visit Keith Craft MD [facility] [place] 03/02/22 Procedure Visit [facility] [...] [place] 07/18/22 Office Visit Kerri Kauffman APRN, [facility] [place] 06/07/22 Office Visit Keith Craft MD [facility] 03/02/22 Procedure Visit [facility] DIABETIC RETINAL IMAGING [facility] [place] 03/02/22 Office Visit Keith Craft MD [facility] [place] Showing recent visits within [...] [place] 07/18/22 Office Visit Kerri Kauffman APRN, [facility] [place] 06/07/22 Office Visit Keith Craft MD [facility] 03/02/22 Procedure Visit [facility] [place] 03/02/22 Office Visit Keith Craft MD [facility] [place] Showing recent visits within past 365 days [...] st Contact Info) Description 04/26/2025 1:30 PM SCOW DERRICK OPERATOR Office Visit [facility] - Pulmonology & Sleep Medicine [facility] #2 [place] [address] Werner Swift MD #2 [place] [address] 05/31/2025 1:20 PM SCOW DERRICK OPERATOR Office Visit [facility] - Family Medicine - [place] #2 [place] [address] Liz Capellan, DO [address] [facility]. [address] [place] [address] 06/02/2025 1:30 PM SCOW DERRICK OPERATOR Office Visit [facility] - Endocrinology - [place] [address]2 [place] [address] Yasmin Restrepo MD #2 [facility] [address] [place] [address] documented as of this encounter Goals Goal [...] Zones/Action plan education. I will notify my Management Technician if my symptoms fall in the [...] 19 04/18/2023 04/18/2023 04/28/2023 12:1 6 AM SCOW DERRICK OPERATOR COVID - 19 07/13/2023 07/13/2023 07/23/2023 12:1 6 AM SCOW DERRICK OPERATOR Respiratory Rule Out - RPA 03/17/2024 03/17/2024 1 3:36 PM CDT COVID - 19 04/27/2024 04/27/2024 04/27/2024 2:19 PM SCOW DERRICK OPERATOR Respiratory Rule-Out 07/24/2024 07/24/2024 025 2:29 PM SCOW DERRICK OPERATOR COVID - 19 07/24/2024 07/24/2024 07/24/2024 2:29 PM SCOW DERRICK OPERATOR COVID - 19 08/22/2024 08/22/2024 08/22/2024 11:4 6 PM CDT COVID - 19 09/03/2024 09/03/2024 09/03/2024 12:4 7 PM CDT Assessment Noted Time PHQ-9 Depression Total Score: 1 03/07/20 21 10:29 AM CDT documented as of this encounter Care Teams Operator Receptionist Relationship Specialty Start Date End Date Keith Craft MD PCP - General Family Medicine 01/14/19 12/26/23 Liz Capellan DO 2 [facility] [place] [address] [address] PCP - General Family Medicine 12/27/23 Quang Locke DO Gastroenterology 01/18/16 Bri Rollins, RN [place] Management Technician 03/07/21 05/22/23 [place] [id number] [address] 05/25/21 Bri Rollins RN [place] Nurse Management Technician 03/07/21 05/23/23 Werner Swift MD #2 [place] [phone] Consulting Physician Pulmonary Disease 01/30/22 Yasmin Restrepo MD #[address] [phone] Consulting Physician Endocrinology 07/20/24 Jose Do MD #[address] [address] Consulting Physician Colon and Rectal Surgery 10/12/24 documented as of this encounter
--- OUTSIDE RECORDS SUMMARY | 2025-03-23 14:55 | XMS_ITS | Encounter Summary ---
Author Organization [facility] Address [address] [place] [address] Phone Care Team Providers Care Toppiece Chopper Name Role Phone Quang Locke Unavailable [phone] Keith Craft MD Primary Care Provider [phone] Bri Rollins RN Unavailable Unavailable Silvio Schulte MD Unavailable Bri Rollins RN Unavailable Unavailable Werner Swift MD Unavailable Liz Capellan DO Primary Care Provider [phone] Yasmin Restrepo MD Unavailable Jose Do MD Unavailable Reason for Visit * Reason Comments Medication Refill Encounter Details Date Type Department Care Team (Late st Contact Info) Description 05/15/2023 Refill [facility] - [facility] #2 [place] [address] Keith Craft MD [address]1 [place] [address] Medication Refill Social History Tobacco [...] Pending Prescriptions Disp Refills ergocalciferol (VITAMIN D) 58390 UNIT Capsule [Pharmacy Med Name: VITAMIN D [id number] CAPSULE] 12 Capsule 0 Sig: TAKE ONE [...] 07/18/22 Office Visit Kerri Kauffman, REBECCA, JAKOB [facility] [place] 06/07/22 Office Visit Keith Craft MD [facility] [place] Showing recent visits within past [...] Dept 05/02/23 Office Visit Keith Craft MD [facility] [place] 04/12/23 Office Visit Keith Craft MD [facility] 12/10/22 Office Visit Keith Craft MD [facility] [place] 09/10/22 Office Visit Keith Craft MD [facility] [place] 07/18/22 Office Visit Kerri Kauffman, HYDROMETALLURGICAL ENGINEER, JAKOB [facility] [place] 06/07/22 Office Visit Keith Craft MD [facility] Showing recent visits within past 365 days and meeting all other requirements Future Appointments No visits were found meeting these conditions. Showing future appointments within next 90 days and meeting all other requirements HEAD SETTER documented in this encounter Plan of Treatment Upcoming Encounters Date Type Department Care Team (Late st Contact Info) Description 04/26/2025 1:30 PM NAILHEAD SETTER Office Visit [facility] - Pulmonology & Sleep Medicine - [place] [address] [place] [address] Werner Swift MD #2 [place] [address] 05/31/2025 1:20 PM NAILHEAD SETTER [facility] Visit [facility] - Family Medicine - [place] #2 [place] [address] Liz Capellan, DO [address] [address] 06/02/2025 1:30 PM NAILHEAD SETTER Office Visit [facility] - Endocrinology - [place] #2 [place] [address] Yasmin Restrepo MD [address] [address] documented as of this encounter Goals Goal [...] Zones/Action plan education. I will notify my Crude Oil Treater if my symptoms fall in the y [...] 19 07/13/2023 07/13/2023 07/23/2023 12:1 6 AM NAILHEAD SETTER Respiratory Rule Out - RPA 03/17/2024 03/17/2024 1 3:36 PM CDT COVID - 19 04/27/2024 04/27/2024 04/27/2024 2:19 PM NAILHEAD SETTER Respiratory Rule-Out 07/24/2024 07/24/2024 025 2:29 PM NAILHEAD SETTER COVID - 19 07/24/2024 07/24/2024 07/24/2024 2:29 PM NAILHEAD SETTER COVID - 19 08/22/2024 08/22/2024 08/22/2024 11:4 6 PM CDT COVID - 19 09/03/2024 09/03/2024 09/03/2024 12:4 7 PM CDT Assessment Noted Time PHQ-9 Depression Total Score: 1 03/07/20 21 10:29 AM CDT documented as of this encounter Care Teams Toppiece Chopper Relationship Specialty Start Date End Date Keith Craft MD PCP - General Family Medicine 01/14/19 12/26/23 Liz Capellan DO [address] [address] PCP - General Family Medicine 12/27/23 Quang Locke DO Gastroenterology 01/18/16 Bri Rollins RN [place] Crude Oil Treater 03/07/21 05/22/23 [place] [address] [address] 05/25/21 Bri Rollins, RN [place] Nurse Crude Oil Treater 03/07/21 05/23/23 Werner Swift MD #2 [place] [address] Consulting Physician Pulmonary Disease 01/30/22 Yasmin Restrepo MD #[address] [address] Consulting Physician Endocrinology 07/20/24 Jose Do MD [address] [facility] [address] [address] [address] Consulting Physician Colon and Rectal Surgery 10/12/24 documented as of this encounter
--- OUTSIDE RECORDS SUMMARY | 2025-03-23 14:55 | XMS_ITS | Encounter Summary ---
Author Organization [facility] Address [address] [place] [address] Phone Care Team Providers Care Bread Distributor Name Role Phone Quang Locke Unavailable [phone] Keith Craft MD Primary Care Provider [phone] Bri Rollins RN Unavailable Unavailable Silvio Schulte MD Unavailable [phone] Bri Rollins RN Unavailable Unavailable Werner Swift MD Unavailable Liz Capellan DO Primary Care Provider [phone] Yasmin Restrepo MD Unavailable Jose Do MD Unavailable Reason for Visit * Reason Comments Medication Refill Encounter Details Date Type Department Care Team (Late st Contact Info) Description 05/04/2021 Refill [facility] - Family Medicine [facility] #2 [place] [address] Keith Craft MD #1 [place] [address] Medication Refill Social History Tobacco [...] COVID-19? No / Unsure 05/05/2021 3:02 PM TRAFFIC DIRECTOR documented as of this encounter Miscellaneous Notes * Telephone Encounter - Gloria Cornejo RN - 05/05/2021 10:59 AM CST Name from pharmacy: DIAZEPAM 10 MG TAB 10 Tablet Will file in chart as: diazePAM (VALIUM) 10 MG Tablet The original prescription was discontinued on 03/23/2021 by Keith Craft MD FIC DIRECTOR documented in this encounter Plan of Treatment Upcoming Encounters Date Type Department Care Team (Late st Contact Info) Description 04/26/2025 1:30 PM TRAFFIC DIRECTOR Office Visit [facility] - Pulmonology & Sleep Medicine [facility] #2 [place] [address] Werner Swift MD #2 [place] [address] 05/31/2025 1:20 PM TRAFFIC DIRECTOR [facility] - Family Medicine [facility] #2 [place] [address] Liz Capellan, DO 2 [facility]. [address] [place] [address] 06/02/2025 1:30 PM TRAFFIC DIRECTOR [facility] - Endocrinology - [place] [address] [place] [address] Yasmin Restrepo MD #[address] [facility] [address] [place] [address] documented as of this encounter Goals Goal [...] plan education. I will notify my Medical Concierge if my symptoms fall in the y [...] - 19 07/23/2021 07/23/2021 07/24/2021 6:31 AM TRAFFIC DIRECTOR COVID - 19 10/19/2021 10/19/2021 10/20/2021 7:45 AM CDT Respiratory Rule Out - RPA 10/19/2021 10/19/2021 0 10/20/2021 2:10 PM CDT Stenotrophomonas maltophilia Comment:Must have a follow up respiratory sample to remove isolation/infection flag. 10/20/2021 10/20/2021 COVID - 19 04/20/2022 04/20/2022 04/30/2022 12:1 8 AM TRAFFIC DIRECTOR COVID - 19 07/18/2022 07/18/2022 07/28/2022 12:1 6 AM TRAFFIC DIRECTOR COVID - 19 08/21/2022 08/21/2022 08/22/2022 8:31 AM CDT Respiratory Rule Out - RPA 08/21/2022 08/21/2022 0 08/22/2022 3:21 PM CDT COVID - 19 04/18/2023 04/18/2023 04/28/2023 12:1 6 AM TRAFFIC DIRECTOR COVID - 19 07/13/2023 07/13/2023 07/23/2023 12:1 6 AM TRAFFIC DIRECTOR Respiratory Rule Out - RPA 03/17/2024 03/17/2024 1 3:36 PM CDT COVID - 19 04/27/2024 04/27/2024 04/27/2024 2:19 PM TRAFFIC DIRECTOR Respiratory Rule-Out 07/24/2024 07/24/2024 025 2:29 PM TRAFFIC DIRECTOR COVID - 19 07/24/2024 07/24/2024 07/24/2024 2:29 PM TRAFFIC DIRECTOR COVID - 19 08/22/2024 08/22/2024 08/22/2024 11:4 6 PM CDT COVID - 19 09/03/2024 09/03/2024 09/03/2024 12:4 7 PM CDT Assessment Noted Time PHQ-9 Depression Total Score: 1 03/07/20 21 10:29 AM CDT documented as of this encounter Care Teams Bread Distributor Relationship Specialty Start Date End Date Keith Craft MD PCP - General Family Medicine 01/14/19 12/26/23 Liz Capellan DO 2 [facility] [address] [place] [address] PCP - General Family Medicine 12/27/23 Quang Locke DO Gastroenterology 01/18/16 Bri Rollins, KATEY [place] Medical Concierge 03/07/21 05/22/23 [place] [address] [address] 05/25/21 Bri Rollins RN [place] Nurse Medical Concierge 03/07/21 05/23/23 Werner Swift MD #2 [place] [address] Consulting Physician Pulmonary Disease 01/30/22 Yasmin Restrepo MD #[address] [address] Consulting Physician Endocrinology 07/20/24 Jose Do MD #[address] [address] Consulting Physician Colon and Rectal Surgery 10/12/24 documented as of this encounter
--- OUTSIDE RECORDS SUMMARY | 2025-03-23 14:55 | XMS_ITS | Encounter Summary ---
Author Organization [facility] Address [address] [place] [address] Phone Care Team Providers Care Breaker Hand Name Role Phone Quang Locke Unavailable [phone] Keith Craft MD Primary Care Provider [phone] Bri Rollins RN Unavailable Unavailable Silvio Schulte MD Unavailable [phone] Bri Rollins RN Unavailable Unavailable Werner Swift MD Unavailable Liz Capellan DO Primary Care Provider [phone] Yasmin Restrepo MD Unavailable Jose Do MD Unavailable Reason for Visit * Reason Comments Medication Refill Encounter Details Date Type Department Care Team (Late st Contact Info) Description 07/24/2021 Refill [facility] #2 [place] [address] Keith Craft MD [address]1 [place] [address] Medication Refill Social History Tobacco [...] COVID-19? No / Unsure 07/23/2021 10:30 AM TEST WORKER documented as of this encounter Miscellaneous Notes * Telephone Encounter - Gloria Cornejo RN - 07/25/2021 1:51 PM CST Medication failed the protocol, provider to review and approve the medication order if appropriate. Requested Prescriptions Pending Prescriptions Disp Refills ergocalciferol (VITAMIN D) 51100 UNIT Capsule [Pharmacy Med Name: VITAMIN D [id number] CAPSULE] 12 Capsule 0 Sig: TAKE ONE CAPSULE BY MOUTH ONE TIME WEEKLY Vitamin Supplements (Adult) Protocol Failed - 07/24/2021 1:17 PM Failed - Vitamin D less than 1.25mg Passed - Visit with relevant provider in past 12 months or upcoming 90 days Recent Visits Date Type Provider Dept 05/25/21 Office Visit Marcin Anderson, AGILE COACH, INTERIOR BLOCK WIRER [facility] [place] 05/05/21 Office Visit Brie Denis, PAC [facility] [place] 04/14/21 Office Visit Keith Craft MD [facility] 03/23/21 Office Visit Keith Craft MD [facility] [place] 02/07/21 Office Visit Keith Craft MD [facility] [place] 02/03/21 Office Visit Brie Denis, NICOLE [facility] [place] 01/12/21 Office Visit Keith Craft MD [facility] [place] 10/12/20 Office Visit Keith Craft MD [facility] 10/04/20 Office Visit Keith Craft MD [facility] [place] Showing recent visits within past 365 days and meeting all other requirements Future Appointments Date Type Provider Dept 08/14/21 Appointment Keith Craft MD [facility] Showing future appointments within next 90 days and meeting all other requirements WORKER documented in this encounter Plan of Treatment Upcoming Encounters Date Type Department Care Team (Late st Contact Info) Description 04/26/2025 1:30 PM TEST WORKER Office Visit [facility] Medical [facility] - Pulmonology & Sleep Medicine - [place] #2 [place] [address] Werner Swift MD #2 [place] [address] 05/31/2025 1:20 PM TEST WORKER Office Visit [facility] Medical [facility] - Family Medicine - [place] #2 [facility] [place] [address] Liz Capellan, DO 2 [facility] [address] [place] [address] 06/02/2025 1:30 PM TEST WORKER Office Visit [facility] Medical [facility] - Endocrinology - [place] #2 [place] [address] Yasmin Restrepo MD #[address] [place] [phone] documented as of this encounter Goals Goal [...] Zones/Action plan education. I will notify my Glass Carrier if my symptoms fall in the [...] 19 07/23/2021 07/23/2021 07/24/2021 6:31 AM TEST WORKER COVID - 19 10/19/2021 10/19/2021 10/20/2021 7:45 AM CDT Respiratory Rule Out - RPA 10/19/2021 10/19/2021 0 10/20/2021 2:10 PM CDT Stenotrophomonas maltophilia Comment:Must have a follow up respiratory sample to remove isolation/infection flag. 10/20/2021 10/20/2021 COVID - 19 04/20/2022 04/20/2022 04/30/2022 12:1 8 AM TEST WORKER COVID - 19 07/18/2022 07/18/2022 07/28/2022 12:1 6 AM TEST WORKER COVID - 19 08/21/2022 08/21/2022 08/22/2022 8:31 AM CDT Respiratory Rule Out - RPA 08/21/2022 08/21/2022 0 08/22/2022 3:21 PM CDT COVID - 19 04/18/2023 04/18/2023 04/28/2023 12:1 6 AM TEST WORKER COVID - 19 07/13/2023 07/13/2023 07/23/2023 12:1 6 AM TEST WORKER Respiratory Rule Out - RPA 03/17/2024 03/17/2024 1 3:36 PM CDT COVID - 19 04/27/2024 04/27/2024 04/27/2024 2:19 PM TEST WORKER Respiratory Rule-Out 07/24/2024 07/24/2024 025 2:29 PM TEST WORKER COVID - 19 07/24/2024 07/24/2024 07/24/2024 2:29 PM TEST WORKER COVID - 19 08/22/2024 08/22/2024 08/22/2024 11:4 6 PM CDT COVID - 19 09/03/2024 09/03/2024 09/03/2024 12:4 7 PM CDT Assessment Noted Time PHQ-9 Depression Total Score: 1 03/07/20 21 10:29 AM CDT documented as of this encounter Care Teams Breaker Hand Relationship Specialty Start Date End Date Keith Craft MD PCP - General Family Medicine 01/14/19 12/26/23 Liz Capellan DO [address] [address] PCP - General Family Medicine 12/27/23 Quang Locke DO Gastroenterology 01/18/16 Bri Rollins RN [place] Glass Carrier 03/07/21 05/22/23 [place] [id number] [address] 05/25/21 Bri Rollins, RN [place] Nurse Glass Carrier 03/07/21 05/23/23 Werner Swift MD #2 [place] [address] Consulting Physician Pulmonary Disease 01/30/22 Yasmin Restrepo MD #[address] [phone] Consulting Physician Endocrinology 07/20/24 Jose Do MD #[address] [address] Consulting Physician Colon and Rectal Surgery 10/12/24 documented as of this encounter
--- OUTSIDE RECORDS SUMMARY | 2025-03-23 14:55 | XMS_ITS | Encounter Summary ---
Author Organization [facility] Address [address] [place] [address] Phone Care Team Providers Care Web Services Developer Name Role Phone Quang Locke Unavailable Keith Craft MD Primary Care Provider [phone] Bri Rollins RN Unavailable Unavailable Silvio Schulte MD Unavailable [phone] Bri Rollins RN Unavailable Unavailable Werner Swift MD Unavailable Liz Capellan DO Primary Care Provider [phone] Yasmin Restrepo MD Unavailable Jose Do MD Unavailable Reason for Visit * Reason Comments Medication Refill Encounter Details Date Type Department Care Team (Late st Contact Info) Description 01/24/2023 Refill [facility] #2 [place] [address] Keith Craft MD #1 [place] [address] Medication Refill Social History Tobacco [...] Pending Prescriptions Disp Refills ergocalciferol (VITAMIN D) 44540 UNIT Capsule [Pharmacy Med Name: VITAMIN D [id number] CAPSULE] 12 Capsule 0 Sig: TAKE ONE [...] 12/10/22 Office Visit Keith Craft MD [facility] [place] 09/10/22 Office Visit Keith Craft MD [facility] [place] 07/18/22 Office Visit Kerri Kauffman, SCRUB WOMAN, CHALK CUTTER [facility] [place] 06/07/22 Office Visit Keith Craft MD [facility] [place] 03/02/22 Procedure Visit [facility] [place] 03/02/22 Office Visit Keith Craft MD [facility] Showing recent visits within past 365 days and meeting all other requirements Future Appointments Date Type Provider Dept 04/12/23 Appointment Keith Craft MD [facility] [place] Showing future appointments within next 90 [...] Date Type Provider Dept 12/10/22 Office Visit Keiht Craft MD [facility] 09/10/22 Office Visit Keith Craft MD [facility] 07/18/22 Office Visit Kerri Kauffman, REBECCA, CHALK CUTTER [facility] 06/07/22 Office Visit Keith Craft MD [facility] 03/02/22 Procedure Visit [facility]AL IMAG[facility] [place] 03/02/22 Office Visit Keith Craft MD [facility] [place] Showing recent visits within past 365 days and meeting all other requirements Future Appointments Date Type Provider Dept 04/12/23 Appointment Keith Craft MD [facility] [place] Showing future appointments within next 90 days and meeting all other requirements documented in this encounter Plan of Treatment Upcoming Encounters Date Type Department Care Team (Late st Contact Info) Description 04/26/2025 1:30 PM STRETCHER LEVELER OPERATOR Office Visit [facility] - Pulmonology & Sleep Medicine - [place] #2 [facility] [place] [address] Werner Swift MD #2 [place] [address] 05/31/2025 1:20 PM STRETCHER LEVELER OPERATOR Office Visit [facility] Medical Group - Family Medicine - [place] #2 [place] [address] Liz Capellan, DO 2 Germain [facility] [address] [place] [address] 06/02/2025 1:30 PM STRETCHER LEVELER OPERATOR Office Visit [facility] - Endocrinology - [place] [address]2 [place] [address] Yasmin Restrepo MD #2 [facility] [address] [place] [address] documented as of this encounter Goals Goal [...] Zones/Action plan education. I will notify my Sanding Machine Operator if my symptoms fall in [...] 19 04/18/2023 04/18/2023 04/28/2023 12:1 6 AM STRETCHER LEVELER OPERATOR COVID - 19 07/13/2023 07/13/2023 07/23/2023 12:1 6 AM STRETCHER LEVELER OPERATOR Respiratory Rule Out - RPA 03/17/2024 03/17/2024 1 3:36 PM CDT COVID - 19 04/27/2024 04/27/2024 04/27/2024 2:19 PM STRETCHER LEVELER OPERATOR Respiratory Rule-Out 07/24/2024 07/24/2024 025 2:29 PM STRETCHER LEVELER OPERATOR COVID - 19 07/24/2024 07/24/2024 07/24/2024 2:29 PM STRETCHER LEVELER OPERATOR COVID - 19 08/22/2024 08/22/2024 08/22/2024 11:4 6 PM CDT COVID - 19 09/03/2024 09/03/2024 09/03/2024 12:4 7 PM CDT Assessment Noted Time PHQ-9 Depression Total Score: 1 03/07/20 21 10:29 AM CDT documented as of this encounter Care Teams Web Services Developer Relationship Specialty Start Date End Date Keith Craft MD PCP - General Family Medicine 01/14/19 12/26/23 Liz Capellan DO [address] [address] PCP - General Family Medicine 12/27/23 Quang Locke DO Gastroenterology 01/18/16 Bri Rollins RN [place] Sanding Machine Operator 03/07/21 05/22/23 [place] [id number] [address] 05/25/21 Bri Rollins, RN [place] Nurse Sanding Machine Operator 03/07/21 05/23/23 Werner Swift MD #2 [place] [address] Consulting Physician Pulmonary Disease 01/30/22 Yasmin Restrepo MD #2 [facility] [address] [place] [address] Consulting Physician Endocrinology 07/20/24 Jose Do MD #2 [facility] [address] [place], [place] [id number] Consulting Physician Colon and Rectal Surgery 10/12/24 documented as of this encounter
--- OUTSIDE RECORDS SUMMARY | 2025-03-23 14:55 | XMS_ITS | Encounter Summary ---
Author Organization [facility] Address [address] [place] [address] Phone Care Team Providers Care Systems Analyst Name Role Phone Quang Locke Unavailable [phone] Keith Craft MD Primary Care Provider [phone] Bri Rollins RN Unavailable Unavailable Silvio Schulte MD Unavailable [phone] Bri Rollins RN Unavailable Unavailable Werner Swift MD Unavailable Liz Capellan DO Primary Care Provider [phone] Yasmin Restrepo MD Unavailable Jose Do MD Unavailable Reason for Visit * Reason Comments Medication Refill Encounter Details Date Type Department Care Team (Late st Contact Info) Description 04/25/2021 Refill [facility] #2 [place] [address] Keith Craft MD #1 [place] [address] Medication Refill Social History Tobacco [...] COVID-19? No / Unsure 04/18/2021 1:18 PM CUT OFF SAW OPERATOR PIPE BLANKS documented as of this encounter Miscellaneous Notes [...] Outpatient Visits 1 week ago Mixed hyperlipidemia [facility] - Family Medicine - Keith Jenkins MD 1 month ago Acute bronchitis, unspecified organism [facility] Keith Lemus MD 2 months ago Pneumonia of right lower lobe due to infectious organism [facility] Keith Lemus MD 2 months ago Type 2 diabetes mellitus with diabetic neuropathy, with long-term current use of insulin (HCC) [facility], PAC 3 months ago Chronic low back pain, unspecified back pain laterality, unspecified whether sciatica present [facility] - Keith Jenkins MD Upcoming Appointments Future Appointments In 3 months Keith Craft MD [facility] - Family Medicine - [place], [facility] INSPECTOR HAIRSPRING TRUING - Recent and Past Visits Recent Visits Date Type Provider Dept 04/14/21 Office Visit Keith Craft MD [facility] 03/23/21 Office Visit Keith Craft MD [facility] 02/07/21 Office Visit Keith Craft MD [facility] 02/03/21 Office Visit Brie Denis, NICOLE [facility] [place] 01/12/21 Office Visit Keith Craft MD [facility] 10/12/20 Office Visit Keith Craft MD [facility] 10/04/20 Office Visit Keith Craft MD [facility] 06/07/20 Office Visit Keith Craft MD [facility] 04/25/20 Office Visit Keith Craft MD [facility] [place] 02/02/20 Office Visit Keith Craft MD [facility] Showing recent visits within past 460 days with a meds authorizing provider and meeting all other requirements Future Appointments No visits were found meeting these conditions. Showing future appointments within next 90 days with a meds authorizing provider and meeting all other requirements Passed - Last BP in normal range BP Readings from Last 1 Encounters: 04/14/21 110/64 OFF SAW OPERATOR PIPE BLANKS documented in this encounter Plan of Treatment Upcoming Encounters Date Type Department Care Team (Late st Contact Info) Description 04/26/2025 1:30 PM CUT OFF SAW OPERATOR PIPE BLANKS Office Visit [facility] - Pulmonology & Sleep Medicine - [place] #2 [place] [address] Werner Swift MD #2 [place] [address] 05/31/2025 1:20 PM CUT OFF SAW OPERATOR PIPE BLANKS Office Visit [facility] - Family Medicine - [place] #2 [place] [phone] Liz Capellan, DO 2 [facility]. [address] [place] [address] 06/02/2025 1:30 PM CUT OFF SAW OPERATOR PIPE BLANKS Office Visit [facility] - Endocrinology - [place] #2 [place] [address] Yasmin Restrepo MD #2 [facility] [address] [place] [address] documented as of this encounter [...] plan education. I will notify my Director Database if my symptoms fall in the y [...] 19 07/23/2021 07/23/2021 07/24/2021 6:31 AM CUT OFF SAW OPERATOR PIPE BLANKS COVID - 19 10/19/2021 10/19/2021 10/20/2021 7:45 AM CDT Respiratory Rule Out - RPA 10/19/2021 10/19/2021 0 10/20/2021 2:10 PM CDT Stenotrophomonas maltophilia Comment:Must have a follow up respiratory sample to remove isolation/infection flag. 10/20/2021 10/20/2021 COVID - 19 04/20/2022 04/20/2022 04/30/2022 12:1 8 AM CUT OFF SAW OPERATOR PIPE BLANKS COVID - 19 07/18/2022 07/18/2022 07/28/2022 12:1 6 AM CUT OFF SAW OPERATOR PIPE BLANKS COVID - 19 08/21/2022 08/21/2022 08/22/2022 8:31 AM CDT Respiratory Rule Out - RPA 08/21/2022 08/21/2022 0 08/22/2022 3:21 PM CDT COVID - 19 04/18/2023 04/18/2023 04/28/2023 12:1 6 AM CUT OFF SAW OPERATOR PIPE BLANKS COVID - 19 07/13/2023 07/13/2023 07/23/2023 12:1 6 AM CUT OFF SAW OPERATOR PIPE BLANKS Respiratory Rule Out - RPA 03/17/2024 03/17/2024 1 3:36 PM CDT COVID - 19 04/27/2024 04/27/2024 04/27/2024 2:19 PM CUT OFF SAW OPERATOR PIPE BLANKS Respiratory Rule-Out 07/24/2024 07/24/2024 025 2:29 PM CUT OFF SAW OPERATOR PIPE BLANKS COVID - 19 07/24/2024 07/24/2024 07/24/2024 2:29 PM CUT OFF SAW OPERATOR PIPE BLANKS COVID - 19 08/22/2024 08/22/2024 08/22/2024 11:4 6 PM CDT COVID - 19 09/03/2024 09/03/2024 09/03/2024 12:4 7 PM CDT Assessment Noted Time PHQ-9 Depression Total Score: 1 03/07/20 21 10:29 AM CDT documented as of this encounter Care Teams Systems Analyst Relationship Specialty Start Date End Date Keith Craft MD PCP - General Family Medicine 01/14/19 12/26/23 Liz Capellan DO 2 [facility] [address] [place] [address] PCP - General Family Medicine 12/27/23 Quang Locke DO Gastroenterology 01/18/16 Bri Rollins, RN [place] Director Database 03/07/21 05/22/23 [place] [address] [address] 05/25/21 Bri Rollins, RN [place] Nurse Director Database 03/07/21 05/23/23 Werner Swift MD #2 [place] [address] Consulting Physician Pulmonary Disease 01/30/22 Yasmin Restrepo MD #[address] [address] Consulting Physician Endocrinology 07/20/24 Jose Do MD #[address] [address] Consulting Physician Colon and Rectal Surgery 10/12/24 documented as of this encounter
--- OUTSIDE RECORDS SUMMARY | 2025-03-23 14:55 | XMS_ITS | Encounter Summary ---
Author Organization [facility] Address [address] [place] [address] Phone Care Team Providers Care Nail Kegger Name Role Phone Quagn Locke Unavailable [phone] Keith Craft MD Primary Care Provider [phone] Bri Rollins RN Unavailable Unavailable Silvio Schulte MD Unavailable [phone] Bri Rollins RN Unavailable Unavailable Werner Swift MD Unavailable Liz Capellan DO Primary Care Provider [phone] Yasmin Restrepo MD Unavailable Jose Do MD Unavailable Reason for Visit * Reason Comments Medication Refill Encounter Details Date Type Department Care Team (Late st Contact Info) Description 09/30/2021 Refill [facility] #2 [place] [address] Keith Craft MD #1 [place] [address] Medication Refill Social History Tobacco [...] Dept 09/08/21 Office Visit Brie Denis, NICOLE [facility] [place] 08/14/21 Office Visit Keith Craft MD [facility] 07/31/21 Office Visit Keith Craft MD [facility] 05/25/21 Office Visit Marcin Anderson APRN, COLLEGE COUNSELOR [facility] [place] 05/05/21 Office Visit [facility]rie Denis, PAC [facility] [place] 04/14/21 Office Visit Keith [facility] [place] 03/23/21 Office Visit [facility] [place] 02/07/21 [facility]a [facility]21 [facility] Showing recent visits within past 365 [...] st Contact Info) Description 04/26/2025 1:30 PM DIALYSIS CHIEF EQUIPMENT TECHNICIAN Office Visit [facility] - Pulmonology & Sleep Medicine - [place] #2 [place] [address] Werner Swift MD #2 [place] [address] 05/31/2025 1:20 PM DIALYSIS CHIEF EQUIPMENT TECHNICIAN Office Visit [facility] - Family Medicine - [place] #2 [place] [address] Liz Capellan, DO [address] [address] 06/02/2025 1:30 PM DIALYSIS CHIEF EQUIPMENT TECHNICIAN Office Visit [facility] - Endocrinology - [place] #2 [place] [address] Yasmin Restrepo MD #[address] [phone] documented as of this encounter Goals Goal [...] Zones/Action plan education. I will notify my Vamp Marker if my symptoms fall in the [...] Time COVID - 19 10/19/2021 10/19/2021 10/20/2021 7:4 5 AM CDT Respiratory Rule Out - RPA 10/19/2021 10/19/2021 0 10/20/2021 2:10 PM CDT Stenotrophomonas maltophilia Comment:Must have a follow up respiratory sample to remove isolation/infection flag. 10/20/2021 10/20/2021 COVID - 19 04/20/2022 04/20/2022 04/30/2022 12:1 8 AM DIALYSIS CHIEF EQUIPMENT TECHNICIAN COVID - 19 07/18/2022 07/18/2022 07/28/2022 12:1 6 AM DIALYSIS CHIEF EQUIPMENT TECHNICIAN COVID - 19 08/21/2022 08/21/2022 08/22/2022 8:31 AM CDT Respiratory Rule Out - RPA 08/21/2022 08/21/2022 0 08/22/2022 3:21 PM CDT COVID - 19 04/18/2023 04/18/2023 04/28/2023 12:1 6 AM DIALYSIS CHIEF EQUIPMENT TECHNICIAN COVID - 19 07/13/2023 07/13/2023 07/23/2023 12:1 6 AM DIALYSIS CHIEF EQUIPMENT TECHNICIAN Respiratory Rule Out - RPA 03/17/2024 03/17/2024 1 3:36 PM CDT COVID - 19 04/27/2024 04/27/2024 04/27/2024 2:19 PM DIALYSIS CHIEF EQUIPMENT TECHNICIAN Respiratory Rule-Out 07/24/2024 07/24/2024 025 2:29 PM DIALYSIS CHIEF EQUIPMENT TECHNICIAN COVID - 19 07/24/2024 07/24/2024 07/24/2024 2:29 PM DIALYSIS CHIEF EQUIPMENT TECHNICIAN COVID - 19 08/22/2024 08/22/2024 08/22/2024 11:4 6 PM CDT COVID - 19 09/03/2024 09/03/2024 09/03/2024 12:4 7 PM CDT Assessment Noted Time PHQ-9 Depression Total Score: 1 03/07/20 21 10:29 AM CDT documented as of this encounter Care Teams Nail Kegger Relationship Specialty Start Date End Date Keith Craft MD PCP - General Family Medicine 01/14/19 12/26/23 Liz Capellan DO [address] [address] PCP - General Family Medicine 12/27/23 Quang Locke DO Gastroenterology 01/18/16 Bri Rollins RN [place] Vamp Marker 03/07/21 05/22/23 [place] [id number] [address] 05/25/21 Bri Rollins, KATEY [place] Nurse Vamp Marker 03/07/21 05/23/23 Werner Swift MD #2 [place] [address] Consulting Physician Pulmonary Disease 01/30/22 Yasmin Restrepo MD #[address] [address] Consulting Physician Endocrinology 07/20/24 Jose Do MD #[address] [address] Consulting Physician Colon and Rectal Surgery 10/12/24 documented as of this encounter
--- OUTSIDE RECORDS SUMMARY | 2025-03-23 14:55 | XMS_ITS | Encounter Summary ---
Author Organization [facility] Address [address] [place] [address] Phone Care Team Providers Care Water Pollution Control Technician Name Role Phone Quang Locke Unavailable [phone] Keith Craft MD Primary Care Provider [phone] Bri Rollins RN Unavailable Unavailable Silvio Schulte MD Unavailable [phone] Bri Rollins RN Unavailable Unavailable Werner Swift MD Unavailable Liz Capellan DO Primary Care Provider [phone] Yasmin Restrepo MD Unavailable Jose Do MD Unavailable Reason for Visit * Reason Comments Medication Refill Encounter Details Date Type Department Care Team (Late st Contact Info) Description 04/11/2021 Refill [facility] #2 [place] [address] Keith Craft MD [address] [place] [address] Medication Refill Social History Tobacco [...] COVID-19? No / Unsure 04/14/2021 1:20 PM WOOD BUFFER documented as of this encounter Miscellaneous Notes [...] 2 weeks ago Acute bronchitis, unspecified organism [facility] - Family Medicine - Keith Jenkins MD 2 months ago Pneumonia of right lower lobe due to infectious organism [facility] - Keith Jenkins MD 2 months ago Type 2 diabetes mellitus with diabetic neuropathy, with long-term current use of insulin (HCC) [facility] - Brie Castano PAC 2 months ago Chronic low back pain, unspecified back pain laterality, unspecified whether sciatica present [facility] Keith Lemus MD 6 months ago Pneumonia of right upper lobe due to infectious organism [facility] Keith Jenkins MD Upcoming Appointments Future Appointments In 3 days Keith Craft MD [facility] [place], [facility] HORSE BREAKER - Recent and Past Visits Recent Visits Date Type Provider Dept 03/23/21 Office Visit Keith Craft MD [facility] 02/07/21 Office Visit Keith Craft MD [facility] 02/03/21 Office Visit Brie Denis PAC [facility] 01/12/21 Office Visit Keith Craft MD [facility] 10/12/20 Office Visit Keith Craft MD [facility] 10/04/20 Office Visit Keith Craft MD [facility] 06/07/20 Office Visit Keith Craft MD [facility] 04/25/20 Office Visit Keith Craft MD [facility] 02/02/20 Office Visit [facility] Showing recent visits within past 460 days with a meds authorizing provider and meeting all other requirements Future Appointments Date Type Provider Dept 04/14/21 Appointment Keith Craft MD [facility] Showing future appointments within next 90 days with a meds authorizing provider and meeting all other requirements diazePAM (VALIUM) 10 MG Tablet [Pharmacy Med Name: DIAZEPAM 10 MG TAB 10 Tablet] 30 Tablet 0 Sig: Take 1 Tablet by mouth daily. There is no refill protocol information for this order BUFFER documented in this encounter Plan of Treatment Upcoming Encounters Date Type Department Care Team (Late st Contact Info) Description 04/26/2025 1:30 PM WOOD BUFFER Office Visit [facility] Medical [facility] - Pulmonology & Sleep Medicine - [place] [address] [place] [address] Werner Swift MD [address]2 [place] [address] 05/31/2025 1:20 PM WOOD BUFFER Office Visit [facility] - Family Medicine - [place] [address]2 [place] [address] Liz Capellan, DO 2 [facility]. [address] [place] [address] 06/02/2025 1:30 PM WOOD BUFFER Office Visit [facility] Endocrinology [facility] [address]2 [place] [address] Yasmin Restrepo MD [address] [phone] documented as of this encounter Goals Goal [...] plan education. I will notify my Senior Piping Designer if my symptoms fall in the [...] - 19 07/23/2021 07/23/2021 07/24/2021 6:31 AM WOOD BUFFER COVID - 19 10/19/2021 10/19/2021 10/20/2021 7:45 AM CDT Respiratory Rule Out - RPA 10/19/2021 10/19/2021 0 10/20/2021 2:10 PM CDT Stenotrophomonas maltophilia Comment:Must have a follow up respiratory sample to remove isolation/infection flag. 10/20/2021 10/20/2021 COVID - 19 04/20/2022 04/20/2022 04/30/2022 12:1 8 AM WOOD BUFFER COVID - 19 07/18/2022 07/18/2022 07/28/2022 12:1 6 AM WOOD BUFFER COVID - 19 08/21/2022 08/21/2022 08/22/2022 8:31 AM CDT Respiratory Rule Out - RPA 08/21/2022 08/21/2022 0 08/22/2022 3:21 PM CDT COVID - 19 04/18/2023 04/18/2023 04/28/2023 12:1 6 AM WOOD BUFFER COVID - 19 07/13/2023 07/13/2023 07/23/2023 12:1 6 AM WOOD BUFFER Respiratory Rule Out - RPA 03/17/2024 03/17/2024 1 3:36 PM CDT COVID - 19 04/27/2024 04/27/2024 04/27/2024 2:19 PM WOOD BUFFER Respiratory Rule-Out 07/24/2024 07/24/2024 025 2:29 PM WOOD BUFFER COVID - 19 07/24/2024 07/24/2024 07/24/2024 2:29 PM WOOD BUFFER COVID - 19 08/22/2024 08/22/2024 08/22/2024 11:4 6 PM CDT COVID - 19 09/03/2024 09/03/2024 09/03/2024 12:4 7 PM CDT Assessment Noted Time PHQ-9 Depression Total Score: 1 03/07/20 21 10:29 AM CDT documented as of this encounter Care Teams Water Pollution Control Technician Relationship Specialty Start Date End Date Keith Craft MD PCP - General Family Medicine 01/14/19 12/26/23 Liz Capellan DO [address] [address] PCP - General Family Medicine 12/27/23 Quang Locke DO Gastroenterology 01/18/16 Bri Rollins, KATEY [place] Senior Piping Designer 03/07/21 05/22/23 [place] [id number] [address] 05/25/21 Bri Rollins RN [place] Nurse Senior Piping Designer 03/07/21 05/23/23 Werner Swift MD [address] [place] [phone] Consulting Physician Pulmonary Disease 01/30/22 Yasmin Restrepo MD #[address] [phone] Consulting Physician Endocrinology 07/20/24 Jose Do MD #[address] [address] Consulting Physician Colon and Rectal Surgery 10/12/24 documented as of this encounter
--- OUTSIDE RECORDS SUMMARY | 2025-03-23 14:55 | XMS_ITS | Encounter Summary ---
Author Organization [facility] Address [address] [place] [address] Phone Care Team Providers Care Lead Project Engineer Name Role Phone SloanQuang walker Oswaldo PRESLEY Unavailable [phone] Silvio Schulte MD Unavailable [phone] Werner Swift MD Unavailable Liz Capellan DO Primary Care Provider Yasmin Restrepo MD Unavailable Jose Do MD Unavailable Reason for Visit * Reason Comments Medication Refill Encounter Details Date Type Department Care Team (Late st Contact Info) Description 01/09/2024 Refill [facility] Medicine [facility] #2 [place] [address] Keith Craft MD [address] [place] [address] Medication Refill Social History Tobacco Use Types [...] attend chur ch or episcopalian services? Never 12/27/2023 Do you belong to [...] Total Score - Questions 1-9 4 10/25 [facility] [place] of Occupat ional Health - Occupational Stress [...] any time in the past 12 m [facility], were you homeless or living in a [...] st Contact Info) Description 04/26/2025 1:30 PM DIETIST [facility] - Pulmonology & Sleep Medicine - [place] [address] [place] [address] Werner Swift MD [address] [place] [address] 05/31/2025 1:20 PM DIETIST Office Visit [facility] - Family Medicine - [place] #2 [facility] [place] [address] Liz Capellan DO 2 [facility]. [address] [place] [address] 06/02/2025 1:30 PM DIETIST Office Visit [facility] - Endocrinology - [place] #2 [facility] [place] [address] Yasmin Restrepo MD #[address] [address] documented as of this encounter Goals Goal [...] plan education. I will notify my Clinical Orthoptist if my symptoms fall in the y [...] - 19 04/27/2024 04/27/2024 04/27/2024 2:19 PM DIETIST Respiratory Rule-Out 07/24/2024 07/24/2024 025 2:29 PM DIETIST COVID - 19 07/24/2024 07/24/2024 07/24/2024 2:29 PM DIETIST COVID - 19 08/22/2024 08/22/2024 08/22/2024 11:4 6 PM CDT COVID - 19 09/03/2024 09/03/2024 09/03/2024 12:4 7 PM CDT Assessment Noted Time PHQ-9 Depression Total Score: 4 11/08/19 24 9:33 AM CDT documented as of this encounter Care Teams Lead Project Engineer Relationship Specialty Start Date End Date Liz Capellan DO 2 [facility] [address] [place] [address] PCP - General Family Medicine 12/27/23 Quang Locke DO Gastroenterology 01/18/16 [place] [address] [address] 05/25/21 Werner Swift MD #2 [place] [address] Consulting Physician Pulmonary Disease 01/30/22 Yasmin Restrepo MD #[address] [phone] Consulting Physician Endocrinology 07/20/24 Jose Do MD #2 [facility] [address] [place] [address] Consulting Physician Colon and Rectal Surgery 10/12/24 documented as of this encounter
--- OUTSIDE RECORDS SUMMARY | 2025-03-23 14:55 | XMS_ITS | Encounter Summary ---
Author Organization [facility] Address [address] [place] [address] Phone Care Team Providers Care National Accounts Recruiter Name Role Phone Quang Locke Unavailable [phone] Keith Craft MD Primary Care Provider [phone] Bri Rollins RN Unavailable Unavailable Silvio Schulte MD Unavailable [phone] Bri Rollins RN Unavailable Unavailable Werner Swift MD Unavailable Liz Capellan DO Primary Care Provider [phone] Yasmin Restrepo MD Unavailable Jose Do MD Unavailable Encounter Details Date Type Department Care Team (Late st Contact Info) Description 04/24/2023 Telephone [facility] [address] [place] [address] Keith Craft MD [address] [place] [address] Social History Tobacco Use Types [...] CST This was sent in by pulmology. UIT INSTRUCTOR * Telephone Encounter - Kunla Garcia, RN - 04/24/2023 8:49 AM CST [...] is covered by her insurance. She uses [facility]. Thank you for your assistance with this. UIT INSTRUCTOR documented in this encounter Plan of Treatment Upcoming Encounters Date Type Department Care Team (Late st Contact Info) Description 04/26/2025 1:30 PM RECRUIT INSTRUCTOR [facility] - [facility]monology & Sleep Medicine [facility] #2 [place] [address] Werner Swift MD #[address] [place] [address] 05/31/2025 1:20 PM RECRUIT INSTRUCTOR Office Visit [facility] - Family Medicine - [place] #2 [place] [address] Liz Capellan, DO 2 [facility]. [address] [place] [address] 06/02/2025 1:30 PM RECRUIT INSTRUCTOR Office Visit [facility] - Endocrinology - [place] [address] [place] [address] Yasmin Restrepo MD #2 [facility] [address] [place] [address] documented as of this encounter [...] plan education. I will notify my Mobile Marketing Specialist if my symptoms fall in the [...] 19 04/18/2023 04/18/2023 04/28/2023 12:1 6 AM RECRUIT INSTRUCTOR COVID - 19 07/13/2023 07/13/2023 07/23/2023 12:1 6 AM RECRUIT INSTRUCTOR Respiratory Rule Out - RPA 03/17/2024 03/17/2024 1 3:36 PM CDT COVID - 19 04/27/2024 04/27/2024 04/27/2024 2:19 PM RECRUIT INSTRUCTOR Respiratory Rule-Out 07/24/2024 07/24/2024 025 2:29 PM RECRUIT INSTRUCTOR COVID - 19 07/24/2024 07/24/2024 07/24/2024 2:29 PM RECRUIT INSTRUCTOR COVID - 19 08/22/2024 08/22/2024 08/22/2024 11:4 6 PM CDT COVID - 19 09/03/2024 09/03/2024 09/03/2024 12:4 7 PM CDT Assessment Noted Time PHQ-9 Depression Total Score: 1 03/07/20 21 10:29 AM CDT documented as of this encounter Care Teams National Accounts Recruiter Relationship Specialty Start Date End Date Keith Craft MD PCP - General Family Medicine 01/14/19 12/26/23 Liz Capellan DO [address] [address] PCP - General Family Medicine 12/27/23 Quang Locke DO Gastroenterology 01/18/16 Rollins, Bri M, RN [place] Mobile Marketing Specialist 03/07/21 05/22/23 [place] [address] [address] 05/25/21 Bri Rollins RN [place] Nurse Mobile Marketing Specialist 03/07/21 05/23/23 Werner Swift MD #2 [place] [address] Consulting Physician Pulmonary Disease 01/30/22 Yasmin Restrepo MD #[address] [address] Consulting Physician Endocrinology 07/20/24 Jose Do MD #[address] [address] Consulting Physician Colon and Rectal Surgery 10/12/24 documented as of this encounter
--- OUTSIDE RECORDS SUMMARY | 2025-03-23 14:55 | XMS_ITS | Encounter Summary ---
Author Organization [facility] Address [address] [place] [address] Phone Care Team Providers Care Principal Planner Name Role Phone Quang Locke Unavailable [phone] Keith Craft MD Primary Care Provider [phone] Bri Rollins RN Unavailable Unavailable Silvio Schulte MD Unavailable [phone] Bri Rollins RN Unavailable Unavailable Werner Swift MD Unavailable Liz Capellan DO Primary Care Provider [phone] Yasmin Restrepo MD Unavailable Jose Do MD Unavailable Reason for Visit * Reason Comments Medication Refill Encounter Details Date Type Department Care Team (Late st Contact Info) Description 09/01/2021 Refill [facility] #2 [place] [address] Keith Craft MD [address] [place] [address] Medication Refill Social History Tobacco [...] RN - 09/01/2021 12:56 PM CDT PDMP [place] 08/10/21 - Diazepam 07/31/21 Medication failed the [...] [place] 07/31/21 Office Visit Keith Craft MD [facility] 05/25/21 Office Visit Marcin Anderson, SURVEY FIELD TECHNICIAN, X RAY TECH [facility] 05/05/21 Office Visit Brie Denis, NICOLE [facility] 04/14/21 Office Visit Keith Craft MD [facility] 03/23/21 Office Visit Keith Craft MD [facility] 02/07/21 Office Visit Keith Craft MD [facility] 02/03/21 Office Visit Brie Denis, PAC [facility] 01/12/21 Office Visit Keith Craft MD [facility] 10/12/20 Office Visit Keith Craft, [facility] Showing recent visits within past 365 days and meeting all other requirements Future Appointments Date Type Provider Dept 09/08/21 Appointment Brie Denis, NICOLE [facility] Showing future appointments within next 90 [...] [place] 05/25/21 Office Visit Marcin Anderson APRN, [facility] 05/05/21 Office Visit Brie Denis, PAC [facility] 04/14/21 Office Visit Keith Craft MD [facility] 03/23/21 Office Visit Keith Craft MD [facility] 02/07/21 Office Visit Keith Craft MD [facility] 02/03/21 Office Visit Brie Denis, PAC [facility] 01/12/21 Office Visit Keith Craft MD [facility] 10/12/20 Office Visit Keith Craft MD [facility] Showing recent visits within past 365 days and meeting all other requirements Future Appointments Date Type Provider Dept 09/08/21 Appointment Brie Denis [facility] Showing future appointments within next 90 days and meeting all other requirements documented in this encounter Plan of Treatment Upcoming Encounters Date Type Department Care Team (Late st Contact Info) Description 04/26/2025 1:30 PM DEPUTY CLERK [facility] - Pulmonology & Sleep Medicine - [place] #2 [facility] [place] [address] Werner Swift MD #2 [facility] [place] [address] 05/31/2025 1:20 PM DEPUTY CLERK Office Visit [facility] - Family Medicine - [place] #2 [place] [address] Liz Capellan, DO [address] [place] [address] 06/02/2025 1:30 PM DEPUTY CLERK Office Visit [facility] Endocrinology - [place] #2 [facility] [place] [address] Yasmin Restrepo MD #[address] [place] [address] documented as of this encounter Goals Goal [...] Zones/Action plan education. I will notify my Pipe Maker if my symptoms fall in the [...] 19 04/20/2022 04/20/2022 04/30/2022 12:1 8 AM DEPUTY CLERK COVID - 19 07/18/2022 07/18/2022 07/28/2022 12:1 6 AM DEPUTY CLERK COVID - 19 08/21/2022 08/21/2022 08/22/2022 8:31 AM CDT Respiratory Rule Out - RPA 08/21/2022 08/21/2022 0 08/22/2022 3:21 PM CDT COVID - 19 04/18/2023 04/18/2023 04/28/2023 12:1 6 AM DEPUTY CLERK COVID - 19 07/13/2023 07/13/2023 07/23/2023 12:1 6 AM DEPUTY CLERK Respiratory Rule Out - RPA 03/17/2024 03/17/2024 1 3:36 PM CDT COVID - 19 04/27/2024 04/27/2024 04/27/2024 2:1 9 PM DEPUTY CLERK Respiratory Rule-Out 07/24/2024 07/24/2024 025 2:29 PM DEPUTY CLERK COVID - 19 07/24/2024 07/24/2024 07/24/2024 2:29 PM DEPUTY CLERK COVID - 19 08/22/2024 08/22/2024 08/22/2024 11:4 6 PM CDT COVID - 19 09/03/2024 09/03/2024 09/03/2024 12:4 7 PM CDT Assessment Noted Time PHQ-9 Depression Total Score: 1 03/07/20 21 10:29 AM CDT documented as of this encounter Care Teams Principal Planner Relationship Specialty Start Date End Date Keith Craft MD PCP - General Family Medicine 01/14/19 12/26/23 Liz Capellan DO [address] [address] PCP - General Family Medicine 12/27/23 Quang Locke DO Gastroenterology 01/18/16 Bri Rollins RN [place] Pipe Maker 03/07/21 05/22/23 [place] [address] [address] 05/25/21 Bri Rollins RN [place] Nurse Pipe Maker 03/07/21 05/23/23 Werner Swift MD #2 [place] [address] Consulting Physician Pulmonary Disease 01/30/22 Yasmin Restrepo MD #[address] [address] Consulting Physician Endocrinology 07/20/24 Jose Do MD #[address] [address] Consulting Physician Colon and Rectal Surgery 10/12/24 documented as of this encounter
--- OUTSIDE RECORDS SUMMARY | 2025-03-23 14:55 | XMS_ITS | Encounter Summary ---
Author Organization [facility] Address [address] [place] [address] Phone Care Team Providers Care Suction Drum Drier Operator Name Role Phone Quang Locke Unavailable [phone] Keith Craft MD Primary Care Provider [phone] Bri Rollins RN Unavailable Unavailable Silvio Schulte MD Unavailable [phone] Bri Rollins RN Unavailable Unavailable Werner Swift MD Unavailable Liz Capellan DO Primary Care Provider [phone] Yasmin Restrepo MD Unavailable Jose Do MD Unavailable Reason for Visit * Reason Comments Medication Refill Encounter Details Date Type Department Care Team (Late st Contact Info) Description 05/10/2021 Refill [facility] Family Medicine [facility] #2 [place] [address] Keith Craft MD #[address] [place] [address] Medication Refill Social History Tobacco [...] COVID-19? No / Unsure 05/05/2021 3:02 PM PATTERN WORKER documented as of this encounter Miscellaneous [...] [place] 02/03/21 Office Visit Brie Denis, NICOLE [facility] 01/12/21 [facility]/12[facility] 10/04/20 Office Visit Keith Craft MD [facility] 06/07/20 Office Visit Keith Craft, [facility] Showing recent visits within past 365 days and meeting all other requirements Future Appointments No visits were found meeting these conditions. Showing future appointments within next 90 days and meeting all other requirements ERN WORKER documented in this encounter Plan of Treatment Upcoming Encounters Date Type Department Care Team (Late st Contact Info) Description 04/26/2025 1:30 PM PATTERN WORKER Office Visit [facility] - Pulmonology & Sleep Medicine - [place] #2 [place] [address] Werner Swift MD #2 [place] [address] 05/31/2025 1:20 PM PATTERN WORKER Office Visit [facility] - Family Medicine - [place] #2 [facility] [place] [address] Liz Capellan, DO [address] [address] 06/02/2025 1:30 PM PATTERN WORKER Office Visit [facility] - Endocrinology - [place] [address] [place] [address] Yasmin Restrepo MD #[address] [phone] documented as of this encounter Goals Goal [...] plan education. I will notify my Spray Ii Painter if my symptoms fall in the [...] - 19 07/23/2021 07/23/2021 07/24/2021 6:31 AM PATTERN WORKER COVID - 19 10/19/2021 10/19/2021 10/20/2021 7:45 AM CDT Respiratory Rule Out - RPA 10/19/2021 10/19/2021 0 10/20/2021 2:10 PM CDT Stenotrophomonas maltophilia Comment:Must have a follow up respiratory sample to remove isolation/infection flag. 10/20/2021 10/20/2021 COVID - 19 04/20/2022 04/20/2022 04/30/2022 12:1 8 AM PATTERN WORKER COVID - 19 07/18/2022 07/18/2022 07/28/2022 12:1 6 AM PATTERN WORKER COVID - 19 08/21/2022 08/21/2022 08/22/2022 8:31 AM CDT Respiratory Rule Out - RPA 08/21/2022 08/21/2022 0 08/22/2022 3:21 PM CDT COVID - 19 04/18/2023 04/18/2023 04/28/2023 12:1 6 AM PATTERN WORKER COVID - 19 07/13/2023 07/13/2023 07/23/2023 12:1 6 AM PATTERN WORKER Respiratory Rule Out - RPA 03/17/2024 03/17/2024 1 3:36 PM CDT COVID - 19 04/27/2024 04/27/2024 04/27/2024 2:19 PM PATTERN WORKER Respiratory Rule-Out 07/24/2024 07/24/2024 025 2:29 PM PATTERN WORKER COVID - 19 07/24/2024 07/24/2024 07/24/2024 2:29 PM PATTERN WORKER COVID - 19 08/22/2024 08/22/2024 08/22/2024 11:4 6 PM CDT COVID - 19 09/03/2024 09/03/2024 09/03/2024 12:4 7 PM CDT Assessment Noted Time PHQ-9 Depression Total Score: 1 03/07/20 21 10:29 AM CDT documented as of this encounter Care Teams Suction Drum Drier Operator Relationship Specialty Start Date End Date Keith Craft MD PCP - General Family Medicine 01/14/19 12/26/23 Liz Capellan DO [address] [address] PCP - General Family Medicine 12/27/23 Quang Locke DO Gastroenterology 01/18/16 Bri Rollins RN [place] Spray Ii Painter 03/07/21 05/22/23 [place] [address] [address] 05/25/21 Bri Rollins, RN [place] Nurse Spray Ii Painter 03/07/21 05/23/23 Werner Swift MD #2 [place] [address] Consulting Physician Pulmonary Disease 01/30/22 Yasmin Restrepo MD #2 [facility] [address] [place] [address] Consulting Physician Endocrinology 07/20/24 Jose Do MD #2 [facility] [address] [place], [place] [phone] Consulting Physician Colon and Rectal Surgery 10/12/24 documented as of this encounter
--- OUTSIDE RECORDS SUMMARY | 2025-03-23 14:55 | XMS_ITS | Encounter Summary ---
Author Organization [facility] Address [address] [place] [address] Phone Care Team Providers Care Suggestion Clerk Name Role Phone Quang Locke Unavailable [phone] Keith Craft MD Primary Care Provider [phone] Bri Rollins RN Unavailable Unavailable Silvio Schulte MD Unavailable [phone] Bri Rollins RN Unavailable Unavailable Werner Swift MD Unavailable Liz Capellan DO Primary Care Provider [phone] Yasmin Restrepo MD Unavailable Jose Do MD Unavailable Reason for Visit * Reason Comments Medication Refill Encounter Details Date Type Department Care Team (Late st Contact Info) Description 04/02/2023 [facility]ill [facility] [address] [place] [address] Keith Craft MD #1 [place] [address] Medication Refill Social History Tobacco [...] prescriptions ordered today by Dr Craft. L FURNITURE ASSEMBLY SUPERVISOR * Telephone Encounter - Gloria Cornejo RN - 04/02/2023 3:13 PM CST duplicates L FURNITURE ASSEMBLY SUPERVISOR documented in this encounter Plan of Treatment Upcoming Encounters Date Type Department Care Team (Late st Contact Info) Description 04/26/2025 1:30 PM METAL FURNITURE ASSEMBLY SUPERVISOR Office Visit [facility] - Pulmonology & Sleep Medicine [facility] [address] [place] [phone] Werner Swift MD #2 [place] [address] 05/31/2025 1:20 PM METAL FURNITURE ASSEMBLY SUPERVISOR Office Visit [facility] - Family Medicine [facility] [address] [place] [address] Liz Capellan, DO 2 [address] [place] [facility]. [address] [place] [address] 06/02/2025 1:30 PM METAL FURNITURE ASSEMBLY SUPERVISOR Office Visit [facility] - Endocrinology - [place] [address] [place] [address] Yasmin Restrepo MD #2 [place] [facility] [address] [place] [address] documented as of this encounter Goals Goal [...] Zones/Action plan education. I will notify my Bag Worker if my symptoms fall in the [...] 04/18/2023 04/18/2023 04/28/2023 12:1 6 AM METAL FURNITURE ASSEMBLY SUPERVISOR COVID - 19 07/13/2023 07/13/2023 07/23/2023 12:1 6 AM METAL FURNITURE ASSEMBLY SUPERVISOR Respiratory Rule Out - RPA 03/17/2024 03/17/2024 1 3:36 PM CDT COVID - 19 04/27/2024 04/27/2024 04/27/2024 2:19 PM METAL FURNITURE ASSEMBLY SUPERVISOR Respiratory Rule-Out 07/24/2024 07/24/2024 025 2:29 PM METAL FURNITURE ASSEMBLY SUPERVISOR COVID - 19 07/24/2024 07/24/2024 07/24/2024 2:29 PM METAL FURNITURE ASSEMBLY SUPERVISOR COVID - 19 08/22/2024 08/22/2024 08/22/2024 11:4 6 PM CDT COVID - 19 09/03/2024 09/03/2024 09/03/2024 12:4 7 PM CDT Assessment Noted Time PHQ-9 Depression Total Score: 1 03/07/20 21 10:29 AM CDT documented as of this encounter Care Teams Suggestion Clerk Relationship Specialty Start Date End Date Keith Craft MD PCP - General Family Medicine 01/14/19 12/26/23 Liz Capellan DO [address] [address] PCP - General Family Medicine 12/27/23 Quang Locke DO Gastroenterology 01/18/16 Bri Rollins RN [place] Bag Worker 03/07/21 05/22/23 [place] [address] [address] 05/25/21 Bri Rollins, RN [place] Nurse Bag Worker 03/07/21 05/23/23 Werner Swift MD #2 [place] [address] Consulting Physician Pulmonary Disease 01/30/22 Yasmin Restrepo MD #[address] [address] Consulting Physician Endocrinology 07/20/24 Jose Do MD #[address] [address] Consulting Physician Colon and Rectal Surgery 10/12/24 documented as of this encounter
--- OUTSIDE RECORDS SUMMARY | 2025-03-23 14:55 | XMS_ITS | Encounter Summary ---
Author Organization [facility] Address [address] [place] [address] Phone Care Team Providers Care Looper Operator Name Role Phone SloanQuang walker Oswaldo PRESLEY Unavailable [phone] Silvio Schulte MD Unavailable [phone] Werner Swift MD Unavailable Liz Capellan DO Primary Care Provider [phone] Yasmin Restrepo MD Unavailable Jose Do MD Unavailable Reason for Visit * Reason Comments Medication Refill Encounter Details Date Type Department Care Team (Late st Contact Info) Description 02/19/2024 Refill [facility] Medicine [facility] #2 [place] [address] Keith Craft MD #1 [place] [address] Medication Refill Social History Tobacco Use Types [...] attend chur ch or hindu services? Never 12/27/2023 Do you belong to [...] Total Score - Questions 1-9 4 10/25 [facility] [place] of Occupat ional Health - Occupational Stress [...] any time in the past 12 m [facility], were you homeless or [...] original prescription was discontinued on 02/04/2024 by Lzi Capellan DO OV note 02/04/24 - Stop xigduo documented in this encounter Plan of Treatment Upcoming Encounters Date Type Department Care Team (Late st Contact Info) Description 04/26/2025 1:30 PM SOLAR PHOTOVOLTAIC INSTALLER Office Visit [facility] Medical [facility] - Pulmonology & Sleep Medicine [facility] #2 [place] [address] Werner Swift MD #2 [place] [address] 05/31/2025 1:20 PM SOLAR PHOTOVOLTAIC INSTALLER Office Visit [facility] - Family Medicine - [place] #2 [facility] [place] [address] Liz Capellan DO 2 [facility] [address] [place] [address] 06/02/2025 1:30 PM SOLAR PHOTOVOLTAIC INSTALLER [facility] [place] #2 [place] [address] Yasmin Restrepo MD #2 [facility] [address] [place] [address] documented as of this encounter Goals Goal [...] Zones/Action plan education. I will notify my Tai Chi Instructor if my symptoms fall in the [...] - 19 04/27/2024 04/27/2024 04/27/2024 2:19 PM SOLAR PHOTOVOLTAIC INSTALLER Respiratory Rule-Out 07/24/2024 07/24/2024 025 2:29 PM SOLAR PHOTOVOLTAIC INSTALLER COVID - 19 07/24/2024 07/24/2024 07/24/2024 2:29 PM SOLAR PHOTOVOLTAIC INSTALLER COVID - 19 08/22/2024 08/22/2024 08/22/2024 11:4 6 PM CDT COVID - 19 09/03/2024 09/03/2024 09/03/2024 12:4 7 PM CDT Assessment Noted Time PHQ-9 Depression Total Score: 4 11/08/19 24 9:33 AM CDT documented as of this encounter Care Teams Looper Operator Relationship Specialty Start Date End Date Liz Capellan DO 2 [facility] [address] [place], [place] [id number] PCP - General Family Medicine 12/27/23 Quang Locke DO Gastroenterology 01/18/16 [place] [address] [address] 05/25/21 Werner Swift MD #2 [place] [address] Consulting Physician Pulmonary Disease 01/30/22 Yasmin Restrepo MD #2 [facility] [facility] [address] [place] [address] Consulting Physician Endocrinology 07/20/24 Jose Do MD #2 [place] [facility] [address] [place] [address] Consulting Physician Colon and Rectal Surgery 10/12/24 documented as of this encounter
--- OUTSIDE RECORDS SUMMARY | 2025-03-23 14:55 | XMS_ITS | Encounter Summary ---
Author Organization [facility] Address [address] [place] [address] Phone Care Team Providers Care Assembly Line Brazer Name Role Phone Quang Locke Unavailable Keith Craft MD Primary Care Provider [phone] Bri Rollins RN Unavailable Unavailable Silvio Schulte MD Unavailable [phone] Bri Rollins RN Unavailable Unavailable Werner Swift MD Unavailable Liz Capellan DO Primary Care Provider [phone] Yasmin Restrepo MD Unavailable Jose Do MD Unavailable Reason for Visit * Reason Comments Medication Refill Encounter Details Date Type Department Care Team (Late st Contact Info) Description 05/06/2021 Refill [facility] - Family Medicine [facility] #2 [place] [address] Keith Craft MD #1 [place] [address] Medication Refill Social History Tobacco [...] COVID-19? No / Unsure 05/05/2021 3:02 PM PRIMING MIXTURE CARRIER documented as of this encounter Miscellaneous Notes [...] Dept 05/05/21 [facility] 04[facility]14/21 Office Visit Keith Craft MD [facility] 03/23/21 Office Visit Keith Craft MD [facility] 02/07/21 Office Visit Keith Craft MD [facility] 02/03/21 [facility] 01/12/21 Office Visit Keith Craft MD [facility] 10/12/20 Office Visit Keith Craft MD [facility] 10/04/20 [facility] 06/07/20 Office Visit Keith Craft MD [facility] Showing recent visits within past 365 days and meeting all other requirements Future Appointments No visits were found meeting these conditions. Showing future appointments within next 90 days and meeting all other requirements Passed - Active short-acting beta agonist prescription ING MIXTURE CARRIER documented in this encounter Plan of Treatment Upcoming Encounters Date Type Department Care Team (Late st Contact Info) Description 04/26/2025 1:30 PM PRIMING MIXTURE CARRIER Office Visit [facility] Medical [facility] - Pulmonology & Sleep Medicine - [place] #2 [place] [address] Werner Swift MD #2 [place] [address] 05/31/2025 1:20 PM PRIMING MIXTURE CARRIER [facility] - Family Medicine - [place] #2 [facility] [place] [address] Liz Capellan, DO 2 [facility] [address] [place] [address] 06/02/2025 1:30 PM PRIMING MIXTURE CARRIER Office [facility] - Endocrinology - [place] #2 [place] [address] Yasmin Restrepo MD #[address] [place] [address] documented as of this encounter Goals Goal [...] Zones/Action plan education. I will notify my Rigger Up if my symptoms fall in the y [...] - 19 07/23/2021 07/23/2021 07/24/2021 6:31 AM PRIMING MIXTURE CARRIER COVID - 19 10/19/2021 10/19/2021 10/20/2021 7:45 AM CDT Respiratory Rule Out - RPA 10/19/2021 10/19/2021 0 10/20/2021 2:10 PM CDT Stenotrophomonas maltophilia Comment:Must have a follow up respiratory sample to remove isolation/infection flag. 10/20/2021 10/20/2021 COVID - 19 04/20/2022 04/20/2022 04/30/2022 12:1 8 AM PRIMING MIXTURE CARRIER COVID - 19 07/18/2022 07/18/2022 07/28/2022 12:1 6 AM PRIMING MIXTURE CARRIER COVID - 19 08/21/2022 08/21/2022 08/22/2022 8:31 AM CDT Respiratory Rule Out - RPA 08/21/2022 08/21/2022 0 08/22/2022 3:21 PM CDT COVID - 19 04/18/2023 04/18/2023 04/28/2023 12:1 6 AM PRIMING MIXTURE CARRIER COVID - 19 07/13/2023 07/13/2023 07/23/2023 12:1 6 AM PRIMING MIXTURE CARRIER Respiratory Rule Out - RPA 03/17/2024 03/17/2024 1 3:36 PM CDT COVID - 19 04/27/2024 04/27/2024 04/27/2024 2:19 PM PRIMING MIXTURE CARRIER Respiratory Rule-Out 07/24/2024 07/24/2024 025 2:29 PM PRIMING MIXTURE CARRIER COVID - 19 07/24/2024 07/24/2024 07/24/2024 2:29 PM PRIMING MIXTURE CARRIER COVID - 19 08/22/2024 08/22/2024 08/22/2024 11:4 6 PM CDT COVID - 19 09/03/2024 09/03/2024 09/03/2024 12:4 7 PM CDT Assessment Noted Time PHQ-9 Depression Total Score: 1 03/07/20 21 10:29 AM CDT documented as of this encounter Care Teams Assembly Line Brazer Relationship Specialty Start Date End Date Keith Craft MD PCP - General Family Medicine 01/14/19 12/26/23 Liz Capellan DO [address] [address] PCP - General Family Medicine 12/27/23 Quang Locke DO Gastroenterology 01/18/16 Bri Rollins RN [place] Rigger Up 03/07/21 05/22/23 [place] [address] [address] 05/25/21 Rollins, Bri M, RN [place] Nurse Rigger Up 03/07/21 05/23/23 Werner Swift MD #2 [place] [address] Consulting Physician Pulmonary Disease 01/30/22 Yasmin Restrepo MD #[address] [address] Consulting Physician Endocrinology 07/20/24 Jose Do MD #[address] [address] Consulting Physician Colon and Rectal Surgery 10/12/24 documented as of this encounter
--- OUTSIDE RECORDS SUMMARY | 2025-03-23 14:56 | XMS_ITS | Encounter Summary ---
Author Organization [facility] Address [address] [place] [address] Phone Care Team Providers Care Card Placer Name Role Phone Quang Locke Unavailable [phone] Keith Craft MD Primary Care Provider [phone] Bri Rollins RN Unavailable Unavailable Silvio Schulte MD Unavailable [phone] Bri Rollins RN Unavailable Unavailable Werner Swift MD Unavailable Liz Capellan DO Primary Care Provider [phone] Yasmin Restrepo MD Unavailable Jose Do MD Unavailable Reason for Visit * Reason Comments Medication Refill Encounter Details Date Type Department Care Team (Late st Contact Info) Description 12/24/2022 Refill [facility] #2 [place] [address] Keith Craft MD #1 [place] [address] Medication Refill Social History Tobacco [...] PM CDT Name from pharmacy: VITAMIN D [id number] CAPSULE Will file in chart as: ergocalciferol (VITAMIN D) 89295 UNIT Capsule The original prescription was discontinued on 11/01/2022 by Keith Craft MD documented in this encounter Plan of Treatment Upcoming Encounters Date Type Department Care Team (Late st Contact Info) Description 04/26/2025 1:30 PM PHYSICIAN RELATIONS REPRESENTATIVE [facility] Visit [facility] - Pulmonology & Sleep Medicine [facility] #2 [place] [address] Werner Swift MD #2 [place] [address] 05/31/2025 1:20 PM PHYSICIAN RELATIONS REPRESENTATIVE [facility] [place] [address] Liz Capellan, DO 2 [facility] [facility] [address] [place] [address] 06/02/2025 1:30 PM PHYSICIAN RELATIONS REPRESENTATIVE Office Visit [facility] - Endocrinology - [place] #[address] [place] [address] Yasmin Restrepo MD #2 [place] [facility] [address] [place] [address] documented as of this encounter Goals Goal [...] Zones/Action plan education. I will notify my Us Administrative Law Judge if my symptoms fall in the y [...] 04/18/2023 04/18/2023 04/28/2023 12:1 6 AM PHYSICIAN RELATIONS REPRESENTATIVE COVID - 19 07/13/2023 07/13/2023 07/23/2023 12:1 6 AM PHYSICIAN RELATIONS REPRESENTATIVE Respiratory Rule Out - RPA 03/17/2024 03/17/2024 1 3:36 PM CDT COVID - 19 04/27/2024 04/27/2024 04/27/2024 2:19 PM PHYSICIAN RELATIONS REPRESENTATIVE Respiratory Rule-Out 07/24/2024 07/24/2024 025 2:29 PM PHYSICIAN RELATIONS REPRESENTATIVE COVID - 19 07/24/2024 07/24/2024 07/24/2024 2:29 PM PHYSICIAN RELATIONS REPRESENTATIVE COVID - 19 08/22/2024 08/22/2024 08/22/2024 11:4 6 PM CDT COVID - 19 09/03/2024 09/03/2024 09/03/2024 12:4 7 PM CDT Assessment Noted Time PHQ-9 Depression Total Score: 1 03/07/20 21 10:29 AM CDT documented as of this encounter Care Teams Card Placer Relationship Specialty Start Date End Date Keith Craft MD PCP - General Family Medicine 01/14/19 12/26/23 Liz Capellan DO [address] [address] PCP - General Family Medicine 12/27/23 Quang Locke DO Gastroenterology 01/18/16 Bri Rollins RN [place] Us Administrative Law Judge 03/07/21 05/22/23 [place] [address] [address] 05/25/21 Bri Rollins, RN [place] Nurse Us Administrative Law Judge 03/07/21 05/23/23 Werner Swift MD #2 [place] [address] Consulting Physician Pulmonary Disease 01/30/22 Yasmin Restrepo MD #[address] [address] Consulting Physician Endocrinology 07/20/24 Jose Do MD #[address] [address] Consulting Physician Colon and Rectal Surgery 10/12/24 documented as of this encounter
--- OUTSIDE RECORDS SUMMARY | 2025-03-23 14:56 | XMS_ITS | Encounter Summary ---
Author Organization [facility] Address [address] [place] [address] Phone Care Team Providers Care Development Expert Name Role Phone Quang Locke Unavailable [phone] Keith Craft MD Primary Care Provider [phone] Silvio Schulte MD Unavailable [phone] Werner Swift MD Unavailable Liz Capellan DO Primary Care Provider [phone] Yasmin Restrepo MD Unavailable Jose Do MD Unavailable Reason for Visit * Reason Comments Medication Refill Encounter Details Date Type Department Care Team (Late st Contact Info) Description 10/10/2023 Refill [facility] - Family Medicine [facility] #2 [place] [address] Keith Craft MD #1 [place] [address] Medication Refill Social History Tobacco Use Types Packs/Day Years Used Date Smoking Tobacco: Former Cigarettes 2 50 1 - 03/16/2018 Smokeless Tobacco: Never Comments:Still uses nictoine patches and gum Alcohol Use Standard Drinks/Week Comments No 0 (1 standard drink = 0.6 oz pur e alcohol) [facility] Utilities Answer Date Recorded In the [...] Total Score - Questions 1-9 0 08/2021 [facility] of Occupat ional Health - Occupational Stress [...] original prescription was reordered on 10/14/2023 by Kieth Craft MD. * Telephone Encounter - Kelin Nance RN - 10/10/2023 12:28 PM CDT duplicate documented in this encounter Plan of Treatment Upcoming Encounters Date Type Department Care Team (Late st Contact Info) Description 04/26/2025 1:30 PM LOGISTICS PROGRAM MANAGER Office Visit [facility] - Pulmonology & Sleep Medicine - [place] #2 [place] [address] Werner Swift MD #2 [place] [address] 05/31/2025 1:20 PM LOGISTICS PROGRAM MANAGER Office Visit [facility] Medical [facility] - Family Medicine - [place] #2 [facility] [place] [address] Liz Capellan, DO 2 [facility] [address] [place] [address] 06/02/2025 1:30 PM LOGISTICS PROGRAM MANAGER Office Visit [facility] - Endocrinology - [place] #2 [place] [address] Yasmin Restrepo MD #[address] [place] [address] documented as of this encounter Goals Goal [...] Zones/Action plan education. I will notify my Rivet Maker if my symptoms fall in the [...] 19 04/27/2024 04/27/2024 04/27/2024 2:19 PM LOGISTICS PROGRAM MANAGER Respiratory Rule-Out 07/24/2024 07/24/2024 025 2:29 PM LOGISTICS PROGRAM MANAGER COVID - 19 07/24/2024 07/24/2024 07/24/2024 2:29 PM LOGISTICS PROGRAM MANAGER COVID - 19 08/22/2024 08/22/2024 08/22/2024 11:4 6 PM CDT COVID - 19 09/03/2024 09/03/2024 09/03/2024 12:4 7 PM CDT Assessment Noted Time PHQ-9 Depression Total Score: 1 03/07/20 10:29 AM CDT documented as of this encounter Care Teams Development Expert Relationship Specialty Start Date End Date Keith Craft MD PCP - General Family Medicine 01/14/19 12/26/23 Liz Capellan DO [address] [address] PCP - General Family Medicine 12/27/23 Quang Locke DO Gastroenterology 01/18/16 [place] [address] [address] 05/25/21 Werner Swift MD #2 [place] [address] Consulting Physician Pulmonary Disease 01/30/22 Yasmin Restrepo MD #[address] [address] Consulting Physician Endocrinology 07/20/24 Jose Do MD #[address] [address] Consulting Physician Colon and Rectal Surgery 10/12/24 documented as of this encounter
--- OUTSIDE RECORDS SUMMARY | 2025-03-23 14:56 | XMS_ITS | Encounter Summary ---
Author Organization [facility] Address [address] [place] [address] Phone Care Team Providers Care Plate Mill Mill Hand Name Role Phone Quang Locke Unavailable [phone] Keith Craft MD Primary Care Provider [phone] Silvio Schulte MD Unavailable [phone] Werner Swift MD Unavailable Liz Capellan DO Primary Care Provider [phone] Yasmin Restrepo MD Unavailable Jose Do MD Unavailable Reason for Visit * Reason Onset Date Comments Medication Refill Follow-up 11/08/2023 Encounter Details Date Type Department Care Team (Late st Contact Info) Description 11/08/2023 Telephone [facility] - Family [facility] #2 [place] [address] Keith Craft MD #1 [place] [address] Medication Refill; Follow-up Social History Tobacco Use Types Packs/Day Years Used Date Smoking Tobacco: Former Cigarettes 2 50 1 - 03/16/2018 Smokeless Tobacco: Never Comments:Still uses nictoine patches and gum Alcohol Use Standard Drinks/Week Comments No 0 (1 standard drink = 0.6 oz pur e alcohol) [facility] Utilities Answer Date Recorded In the [...] any clubs o r organizations such as mandaeism groups, unions, fraternal or athletic groups, or [...] Total Score - Questions 1-9 4 10/25 [facility] [place] of Occupat ional Health - Occupational Stress [...] 11/08/23 Assessment: Patient states she spoke to [facility] today 11/11/23 and they have not received a script for her diazepam 5 mg Recommendations: Please advise * Telephone Encounter - Gloria Cornejo RN - 11/08/2023 1:07 PM CDT duplicate documented in this encounter Plan of Treatment Upcoming Encounters Date Type Department Care Team (Late st Contact Info) Description 04/26/2025 1:30 PM CREMATORY ATTENDANT Office Visit [facility] Medical [facility] - Pulmonology & Sleep Medicine [facility] #2 [place] [address] Werner Swift MD #2 [place] [address] 05/31/2025 1:20 PM CREMATORY ATTENDANT Office Visit [facility] Medical [facility] - Family Medicine - [place] #2 [place] [address] Liz Capellan, DO 2 [facility]. [address] [place] [address] 06/02/2025 1:30 PM CREMATORY ATTENDANT Office Visit [facility] - Endocrinology - [place] [address] [place] [address] Yasmin Restrepo MD #[address] [place] [address] [address] documented as of this encounter Goals Goal [...] Zones/Action plan education. I will notify my Analytical Chemist if my symptoms fall in the y [...] - 19 04/27/2024 04/27/2024 04/27/2024 2:19 PM CREMATORY ATTENDANT Respiratory Rule-Out 07/24/2024 07/24/2024 025 2:29 PM CREMATORY ATTENDANT COVID - 19 07/24/2024 07/24/2024 07/24/2024 2:29 PM CREMATORY ATTENDANT COVID - 19 08/22/2024 08/22/2024 08/22/2024 11:4 6 PM CDT COVID - 19 09/03/2024 09/03/2024 09/03/2024 12:4 7 PM CDT Assessment Noted Time PHQ-9 Depression Total Score: 4 11/08/19 9:33 AM CDT documented as of this encounter Care Teams Plate Mill Mill Hand Relationship Specialty Start Date End Date Keith Craft MD PCP - General Family Medicine 01/14/19 12/26/23 Liz Capellan DO [address] [id number] PCP - General Family Medicine 12/27/23 Quang Locke DO Gastroenterology 01/18/16 [place] [address] [address] 05/25/21 Werner Swift MD #2 [place] [address] Consulting Physician Pulmonary Disease 01/30/22 Yasmin Restrepo MD #[address] [address] Consulting Physician Endocrinology 07/20/24 Jose Do MD #[address] [address] Consulting Physician Colon and Rectal Surgery 10/12/24 documented as of this encounter
--- OUTSIDE RECORDS SUMMARY | 2025-03-23 14:56 | XMS_ITS | Encounter Summary ---
Author Organization [facility] Address [address] [place] [address] Phone Care Team Providers Care Industrial Automation Specialist Name Role Phone Quang Locke Unavailable [phone] Keith Craft MD Primary Care Provider [phone] Silvio Schulte MD Unavailable [phone] Werner Swift MD Unavailable Liz Capellan DO Primary Care Provider [phone] Yasmin Restrepo MD Unavailable Jose Do MD Unavailable Reason for Visit * Reason Comments Medication Refill Encounter Details Date Type Department Care Team (Late st Contact Info) Description 09/30/2023 [facility]ill [facility] #2 [place] [address] Keith Craft MD #1 [place] [address] Medication Refill Social History Tobacco Use Types Packs/Day Years Used Date Smoking Tobacco: Former Cigarettes 2 50 1 - 03/16/2018 Smokeless Tobacco: Never Comments:Still uses nictoine patches and gum Alcohol Use Standard Drinks/Week Comments No 0 (1 standard drink = 0.6 oz pur e alcohol) [facility] Utilities Answer Date Recorded In the [...] any clubs o r organizations such as sabianism groups, unions, fraternal or athletic groups, or [...] Total Score - Questions 1-9 0 08/2021 [facility] [place] of Occupat ional Health - Occupational Stress [...] st Contact Info) Description 04/26/2025 1:30 PM MACHINE SETTER SHEET METAL Office Visit [facility] - Pulmonology & Sleep Medicine - [place] #2 [place] [address] Werner Swift MD #2 [place] [address] 05/31/2025 1:20 PM MACHINE SETTER SHEET METAL Office Visit [facility] - Family Medicine - [place] #2 [place] [address] Liz Capellan, DO 2 [facility] [address] [place] [address] 06/02/2025 1:30 PM MACHINE SETTER SHEET METAL Office Visit [facility] Endocrinology [facility] #2 [place] [address] Yasmin Restrepo MD #[address] [address] documented as of this encounter Goals [...] Zones/Action plan education. I will notify my Enrollment Management Manager if my symptoms fall in the [...] - 19 04/27/2024 04/27/2024 04/27/2024 2:19 PM MACHINE SETTER SHEET METAL Respiratory Rule-Out 07/24/2024 07/24/2024 025 2:29 PM MACHINE SETTER SHEET METAL COVID - 19 07/24/2024 07/24/2024 07/24/2024 2:29 PM MACHINE SETTER SHEET METAL COVID - 19 08/22/2024 08/22/2024 08/22/2024 11:4 6 PM CDT COVID - 19 09/03/2024 09/03/2024 09/03/2024 12:4 7 PM CDT Assessment Noted Time PHQ-9 Depression Total Score: 1 03/07/20 21 10:29 AM CDT documented as of this encounter Care Teams Industrial Automation Specialist Relationship Specialty Start Date End Date Keith Craft MD PCP - General Family Medicine 01/14/19 12/26/23 Liz Capellan DO [address] [address] PCP - General Family Medicine 12/27/23 Quang Locke DO Gastroenterology 01/18/16 [place] [id number] [address] 05/25/21 Werner Swift MD #2 [place] [address] Consulting Physician Pulmonary Disease 01/30/22 Yasmin Restrepo MD #[address] [address] Consulting Physician Endocrinology 07/20/24 Jose Do MD #[address] [address] Consulting Physician Colon and Rectal Surgery 10/12/24 documented as of this encounter
--- OUTSIDE RECORDS SUMMARY | 2025-03-23 14:56 | XMS_ITS | Encounter Summary ---
Author Organization [facility] Address [address] [place] [address] Phone Care Team Providers Care Acquisitions Analyst Name Role Phone Quang Locke Unavailable [phone] Keith Craft MD Primary Care Provider [phone] Bri Rollins RN Unavailable Unavailable Silvio Schulte MD Unavailable [phone] Bri Rollins RN Unavailable Unavailable Werner Swift MD Unavailable Liz Capellan DO Primary Care Provider [phone] Yasmin Restrepo MD Unavailable Jose Do MD Unavailable Reason for Visit * Reason Comments Medication Refill Encounter Details Date Type Department Care Team (Late st Contact Info) Description 11/01/2022 Refill [facility] #2 [place] [address] Keith Craft MD #1 [place] [address] Medication Refill Social History Tobacco [...] [place] 07/18/22 Office Visit Kerri Kauffman, COMFORT STATION ATTENDANT, SEWING TECHNIQUES DEMONSTRATOR [facility] 06/07/22 Office Visit Keith Craft MD [facility] Showing recent visits within past 182 [...] [place] 07/18/22 Office Visit Kerri Kauffman APRN, SEWING TECHNIQUES DEMONSTRATOR [facility] [place] 07/18/22 Office Visit Kerri Kauffman, COMFORT STATION ATTENDANT, SEWING TECHNIQUES DEMONSTRATOR [facility] 06/07/22 Office Visit Keith Craft MD [facility] [place] 03/02/22 Procedure Visit [facility] 03/02/22 Office Visit Keith Craft MD [facility] [place] 11/03/21 Office Visit Keith Craft MD [facility] [place] Showing recent visits within past 365 days and meeting all other requirements Future Appointments Date Type Provider Dept 12/10/22 Appointment Keith Craft MD [facility] Showing future appointments within next 90 days and meeting all other requirements Passed - Normal TSH in past 12 months TSH Date Value Ref Range Status 03/02/2022 0.893 0.270 - 4.200 mIU/L Final documented in this encounter Plan of Treatment Upcoming Encounters Date Type Department Care Team (Late st Contact Info) Description 04/26/2025 1:30 PM OIL DEVELOPER Office Visit [facility] Medical [facility] - Pulmonology & Sleep Medicine - [place] #2 [place] [address] Werner Swift MD #2 [place] [address] 05/31/2025 1:20 PM OIL DEVELOPER Office Visit [facility] - Family Medicine - [place] #2 [facility] [address] Liz Capellan, DO 2 [facility] [address] [place] [address] 06/02/2025 1:30 PM OIL DEVELOPER Office Visit [facility] Endocrinology - [place] #2 [place] [address] Yasmin Restrepo MD #[address] [place] [address] documented as of this encounter Goals Goal [...] Zones/Action plan education. I will notify my Doping Supervisor if my symptoms fall in the [...] 19 04/18/2023 04/18/2023 04/28/2023 12:1 6 AM OIL DEVELOPER COVID - 19 07/13/2023 07/13/2023 07/23/2023 12:1 6 AM OIL DEVELOPER Respiratory Rule Out - RPA 03/17/2024 03/17/2024 1 3:36 PM CDT COVID - 19 04/27/2024 04/27/2024 04/27/2024 2:19 PM OIL DEVELOPER Respiratory Rule-Out 07/24/2024 07/24/2024 025 2:29 PM OIL DEVELOPER COVID - 19 07/24/2024 07/24/2024 07/24/2024 2:29 PM OIL DEVELOPER COVID - 19 08/22/2024 08/22/2024 08/22/2024 11:4 6 PM CDT COVID - 19 09/03/2024 09/03/2024 09/03/2024 12:4 7 PM CDT Assessment Noted Time PHQ-9 Depression Total Score: 1 03/07/20 21 10:29 AM CDT documented as of this encounter Care Teams Acquisitions Analyst Relationship Specialty Start Date End Date Keith Craft MD PCP - General Family Medicine 01/14/19 12/26/23 Liz Capellan DO 2 [facility] [address] [place] [address] PCP - General Family Medicine 12/27/23 Quang Locke DO Gastroenterology 01/18/16 Bri Rollins RN [place] Doping Supervisor 03/07/21 05/22/23 [place] [address] [place] [address] 05/25/21 Bri Rollins RN [place] Nurse Doping Supervisor 03/07/21 05/23/23 Werner Swift MD #2 [place] [address] Consulting Physician Pulmonary Disease 01/30/22 Yasmin Restrepo MD #[address] [phone] Consulting Physician Endocrinology 07/20/24 Jose Do MD #[address] [address] Consulting Physician Colon and Rectal Surgery 10/12/24 documented as of this encounter
--- OUTSIDE RECORDS SUMMARY | 2025-03-23 14:56 | XMS_ITS | Encounter Summary ---
Author Organization [facility] Address [address] [place] [address] Phone Care Team Providers Care Qualitative Researcher Name Role Phone Quang Locke Unavailable [phone] Keith Craft MD Primary Care Provider [phone] Bri Rollins RN Unavailable Unavailable Silvio Schulte MD Unavailable [phone] Bri Rollins RN Unavailable Unavailable Werner Swift MD Unavailable Liz Capellan DO Primary Care Provider [phone] Yasmin Restrepo MD Unavailable Jose Do MD Unavailable Reason for Visit * Reason Comments Medication Refill Encounter Details Date Type Department Care Team (Late st Contact Info) Description 12/18/2022 Refill [facility] [place] [facility] #2 [place] [address] Keith Craft MD #1 [place] [address] Medication Refill Social History Tobacco [...] PM CDT Name from pharmacy: VITAMIN D [id number] CAPSULE Will file in chart as: ergocalciferol (VITAMIN D) 60984 UNIT Capsule The original prescription was discontinued on 11/01/2022 by Keith Craft MD documented in this encounter Plan of Treatment Upcoming Encounters Date Type Department Care Team (Late st Contact Info) Description 04/26/2025 1:30 PM ACCESS LIAISON Office Visit [facility] - Pulmonology & Sleep Medicine [facility] [place] #2 [place] [address] Werner Swift MD #2 [place] [address] 05/31/2025 1:20 PM ACCESS LIAISON Office Visit [facility] #2 [place] [address] Liz Capellan, DO 2 [facility] [address] [place] [address] 06/02/2025 1:30 PM ACCESS LIAISON Office Visit [facility] - Endocrinology - [place] #[address] [place] [address] Yasmin Restrepo MD #2 [facility] [address] [place] [address] documented as of this encounter Goals Goal [...] plan education. I will notify my Clinical Care Leader if my symptoms fall in the [...] 19 04/18/2023 04/18/2023 04/28/2023 12:1 6 AM ACCESS LIAISON COVID - 19 07/13/2023 07/13/2023 07/23/2023 12:1 6 AM ACCESS LIAISON Respiratory Rule Out - RPA 03/17/2024 03/17/2024 1 3:36 PM CDT COVID - 19 04/27/2024 04/27/2024 04/27/2024 2:19 PM ACCESS LIAISON Respiratory Rule-Out 07/24/2024 07/24/2024 025 2:29 PM ACCESS LIAISON COVID - 19 07/24/2024 07/24/2024 07/24/2024 2:29 PM ACCESS LIAISON COVID - 19 08/22/2024 08/22/2024 08/22/2024 11:4 6 PM CDT COVID - 19 09/03/2024 09/03/2024 09/03/2024 12:4 7 PM CDT Assessment Noted Time PHQ-9 Depression Total Score: 1 03/07/20 21 10:29 AM CDT documented as of this encounter Care Teams Qualitative Researcher Relationship Specialty Start Date End Date Keith Craft MD PCP - General Family Medicine 01/14/19 12/26/23 Liz Capellan DO [address] [address] PCP - General Family Medicine 12/27/23 Quang Locke DO Gastroenterology 01/18/16 Bri Rollins RN [place] Clinical Care Leader 03/07/21 05/22/23 [place] [address] [address] 05/25/21 Bri Rollins, RN [place] Nurse Clinical Care Leader 03/07/21 05/23/23 Werner Swift MD #2 [place] [address] Consulting Physician Pulmonary Disease 01/30/22 Yasmin Restrepo MD #[address] [address] Consulting Physician Endocrinology 07/20/24 Jose Do MD #[address] [address] Consulting Physician Colon and Rectal Surgery 10/12/24 documented as of this encounter
--- OUTSIDE RECORDS SUMMARY | 2025-03-23 14:56 | XMS_ITS | Encounter Summary ---
Author Organization [facility] Address [address] [place] [address] Phone Care Team Providers Care Mat Cleaning Machine Operator Name Role Phone Quang Locke Unavailable [phone] Keith Craft MD Primary Care Provider [phone] Silvio Schulte MD Unavailable [phone] Werner Swift MD Unavailable Liz Capellan DO Primary Care Provider [phone] Yasmin Restrepo MD Unavailable Jose Do MD Unavailable Reason for Visit * Reason Comments Medication Refill Encounter Details Date Type Department Care Team (Late st Contact Info) Description 10/08/2023 Refill [facility] Medicine [facility] #2 [place] [address] Keith Craft MD #1 [place] [address] Medication Refill Social History Tobacco Use Types [...] often do you attend chur ch or jehovah's witness services? Never 07/13/2023 Do you belong to [...] Total Score - Questions 1-9 0 08/2021 [facility] [place] of Occupat ional Health - Occupational Stress [...] st Contact Info) Description 04/26/2025 1:30 PM WEAPONS SPECIALIST Office Visit [facility] - Pulmonology & Sleep Medicine - [place] #2 [place] [address] Werner Swift MD #2 [place] [address] 05/31/2025 1:20 PM WEAPONS SPECIALIST Office Visit [facility] - Family Medicine - [place] #2 [place] [address] Liz Capellan, DO [address] [address] 06/02/2025 1:30 PM WEAPONS SPECIALIST Office Visit [facility] - Endocrinology - [place] #2 [place] [address] Yasmin Restrepo MD #2 [facility] [address] [place] [address] documented as of this encounter Goals Goal [...] Zones/Action plan education. I will notify my Service Desk Associate if my symptoms fall in the y [...] 19 04/27/2024 04/27/2024 04/27/2024 2:19 PM WEAPONS SPECIALIST Respiratory Rule-Out 07/24/2024 07/24/2024 025 2:29 PM WEAPONS SPECIALIST COVID - 19 07/24/2024 07/24/2024 07/24/2024 2:29 PM WEAPONS SPECIALIST COVID - 19 08/22/2024 08/22/2024 08/22/2024 11:4 6 PM CDT COVID - 19 09/03/2024 09/03/2024 09/03/2024 12:4 7 PM CDT Assessment Noted Time PHQ-9 Depression Total Score: 1 03/07/20 21 10:29 AM CDT documented as of this encounter Care Teams Mat Cleaning Machine Operator Relationship Specialty Start Date End Date Keith Craft MD PCP - General Family Medicine 01/14/19 12/26/23 Liz Capellan DO [address] [address] PCP - General Family Medicine 12/27/23 Quang Locke DO Gastroenterology 01/18/16 [place] [address] [address] 05/25/21 Werner Swift MD #2 [place] [address] Consulting Physician Pulmonary Disease 01/30/22 Yasmin Restrepo MD #[address] [address] Consulting Physician Endocrinology 07/20/24 Jose Do MD #[address] [place] [address] Consulting Physician Colon and Rectal Surgery 10/12/24 documented as of this encounter
--- OUTSIDE RECORDS SUMMARY | 2025-03-23 14:56 | XMS_ITS | Encounter Summary ---
Author Organization [facility] Address [address] [place] [address] Phone Care Team Providers Care Machine Operator Farmworker Name Role Phone Quang Locke Unavailable [phone] Keith Carft MD Primary Care Provider [phone] Silvio Schulte MD Unavailable [phone] Werner Swift MD Unavailable Liz Capellan DO Primary Care Provider [phone] Yasmin Restrepo MD Unavailable Jose Do MD Unavailable Reason for Visit * Reason Comments Medication Refill Encounter Details Date Type Department Care Team (Late st Contact Info) Description 10/28/2023 Refill [facility] #2 [place] [address] Keith Craft MD #1 [place] [address] Medication Refill Social History Tobacco Use Types Packs/Day Years Used Date Smoking Tobacco: Former Cigarettes 2 50 1 - 03/16/2018 Smokeless Tobacco: Never Comments:Still uses nictoine patches and gum Alcohol Use Standard Drinks/Week Comments No 0 (1 standard drink = 0.6 oz pur e alcohol) [facility] Utilities Answer Date Recorded In the [...] often do you attend chur ch or scientologist services? Never 07/13/2023 Do you belong to any clubs o r organizations such as confucianism groups, unions, fraternal or athletic groups, or [...] Total Score - Questions 1-9 0 08/2021 [facility] [place] of Occupat ional Health - Occupational Stress [...] st Contact Info) Description 04/26/2025 1:30 PM SHAKER TENDER Office Visit [facility] - Pulmonology & [facility] #2 [place] [address] Werner Swift MD #2 [facility] [place] [address] 05/31/2025 1:20 PM SHAKER TENDER Office Visit [facility] Medical [facility] - Family Medicine - [place] #2 [place] [address] Liz Capellan, DO 2 [facility]. [address] [place] [address] 06/02/2025 1:30 PM SHAKER TENDER Office Visit [facility] - Endocrinology - [place] [address] [place] [address] Yasmin Restrepo MD #[address] [facility] [address] [place] [address] documented as of this encounter Goals Goal [...] plan education. I will notify my Mold Sander if my symptoms fall in the y [...] - 19 04/27/2024 04/27/2024 04/27/2024 2:19 PM SHAKER TENDER Respiratory Rule-Out 07/24/2024 07/24/2024 025 2:29 PM SHAKER TENDER COVID - 19 07/24/2024 07/24/2024 07/24/2024 2:29 PM SHAKER TENDER COVID - 19 08/22/2024 08/22/2024 08/22/2024 11:4 6 PM CDT COVID - 19 09/03/2024 09/03/2024 09/03/2024 12:4 7 PM CDT Assessment Noted Time PHQ-9 Depression Total Score: 1 03/07/20 21 10:29 AM CDT documented as of this encounter Care Teams Machine Operator Farmworker Relationship Specialty Start Date End Date Keith Craft MD PCP - General Family Medicine 01/14/19 12/26/23 Liz Capellan DO [address] [address] PCP - General Family Medicine 12/27/23 Quang Locke DO Gastroenterology 01/18/16 [place] [address] [address] 05/25/21 Werner Swift MD #2 [place] [address] Consulting Physician Pulmonary Disease 01/30/22 Yasmin Restrepo MD #[address] [address] Consulting Physician Endocrinology 07/20/24 Jose Do MD #[address] [facility] [address] [address] Consulting Physician Colon and Rectal Surgery 10/12/24 documented as of this encounter
--- OUTSIDE RECORDS SUMMARY | 2025-03-23 14:56 | XMS_ITS | Encounter Summary ---
Author Organization [facility] Address [address] [place] [address] Phone Care Team Providers Care Wharf Worker Name Role Phone Quang Locke Unavailable [phone] Keith Cratf MD Primary Care Provider [phone] Bri Rollins RN Unavailable Unavailable Silvio Schulte MD Unavailable [phone] Bri Rollins RN Unavailable Unavailable Werner Swift MD Unavailable Liz Capellan DO Primary Care Provider [phone] Yasmin Restrepo MD Unavailable Jose Do MD Unavailable Reason for Visit * Reason Comments Medication Refill Encounter Details Date Type Department Care Team (Late st Contact Info) Description 12/26/2022 Refill [facility] Medicine [facility] #2 [place] [address] Keith Craft MD #1 [place] [address] Medication Refill Social History Tobacco [...] AM CDT Name from pharmacy: VITAMIN D [id number] CAPSULE Will file in chart as: ergocalciferol (VITAMIN D) 63446 UNIT Capsule The original prescription was discontinued [...] >=60 >=60 >=60 Resulting Agency [facility] documented in this encounter Plan of Treatment Upcoming Encounters Date Type Department Care Team (Late st Contact Info) Description 04/26/2025 1:30 PM ROLLING UP MACHINE OPERATOR Office Visit [facility] Medical [facility] - Pulmonology & Sleep Medicine - [place] #2 [place] [address] Werner Swift MD #2 [place] [address] 05/31/2025 1:20 PM ROLLING UP MACHINE OPERATOR Office Visit [facility] Medical [facility] - Family Medicine - [place] #2 [facility] [place] [address] Liz Capellan, DO 2 [facility] [address] [place] [address] 06/02/2025 1:30 PM ROLLING UP MACHINE OPERATOR Office Visit [facility] Medical [facility] - Endocrinology - [place] #2 [place] [address] Yasmin Restrepo MD #[address] [place] [address] documented as of this encounter Goals Goal [...] Zones/Action plan education. I will notify my Jewel Blocker And Sawyer if my symptoms fall in the [...] 19 04/18/2023 04/18/2023 04/28/2023 12:1 6 AM ROLLING UP MACHINE OPERATOR COVID - 19 07/13/2023 07/13/2023 07/23/2023 12:1 6 AM ROLLING UP MACHINE OPERATOR Respiratory Rule Out - RPA 03/17/2024 03/17/2024 1 3:36 PM CDT COVID - 19 04/27/2024 04/27/2024 04/27/2024 2:19 PM ROLLING UP MACHINE OPERATOR Respiratory Rule-Out 07/24/2024 07/24/2024 025 2:29 PM ROLLING UP MACHINE OPERATOR COVID - 19 07/24/2024 07/24/2024 07/24/2024 2:29 PM ROLLING UP MACHINE OPERATOR COVID - 19 08/22/2024 08/22/2024 08/22/2024 11:4 6 PM CDT COVID - 19 09/03/2024 09/03/2024 09/03/2024 12:4 7 PM CDT Assessment Noted Time PHQ-9 Depression Total Score: 1 03/07/20 21 10:29 AM CDT documented as of this encounter Care Teams Wharf Worker Relationship Specialty Start Date End Date Keith Craft MD PCP - General Family Medicine 01/14/19 12/26/23 Liz Capellan DO 2 [facility] [address] [place] [address] PCP - General Family Medicine 12/27/23 Quang Locke DO Gastroenterology 01/18/16 Bri Rollins, [place] Jewel Blocker And Sawyer 03/07/21 05/22/23 [place] [address] [address] 05/25/21 Bri Rollins, RN [place] Nurse [employer] Blocker [employer] Sawyer 03/07/21 05/23/23 Werner Swift MD #2 [place] [address] Consulting Physician Pulmonary Disease 01/30/22 Yasmin Restrepo MD #[address] [address] Consulting Physician Endocrinology 07/20/24 Jose Do MD #[address] [address] Consulting Physician Colon and Rectal Surgery 10/12/24 documented as of this encounter
--- OUTSIDE RECORDS SUMMARY | 2025-03-23 14:56 | XMS_ITS | Encounter Summary ---
Author Organization [facility] Address [address] [place] [address] Phone Care Team Providers Care Assembler Motor Vehicle Name Role Phone SloanQuang walker Oswaldo PRESLEY Unavailable [phone] Silvio Schulte MD Unavailable [phone] Werner Swift MD Unavailable Liz Capellan DO Primary Care Provider [phone] Yasmin Restrepo MD Unavailable Jose Do MD Unavailable Encounter Details Date Type Department Care Team (Late st Contact Info) Description 10/14/2024 Telephone [facility] [address] [place] [address] Liz Capellan DO [address] [address] Social History Tobacco Use Types Packs/Day Years Used Date Smoking Tobacco: Former Cigarettes 2 50 1 - 03/16/2018 Smokeless Tobacco: Never Comments:Still uses nictoine patches and gum Alcohol Use Standard Drinks/Week Comments No 0 (1 standard drink = 0.6 oz pur e alcohol) [facility] Utilities Answer Date Recorded In [...] declined 10/05/2024 How often do you attend buddhism or holiness serv ices? Patient declined 10/05/2024 Do you [...] Total Score - Questions 1-9 0 06/27 [facility] [place] of Occupat ional Health - Occupational Stress [...] any time in the past 12 m [facility], were you homeless or living in a snf (including now)? 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 [...] st Contact Info) Description 04/26/2025 1:30 PM MANAGER OF PURCHASING Office Visit [facility] Medical [facility] - Pulmonology & Sleep Medicine [facility] [address] [place] [address] Werner Swift MD #2 [place] [address] 05/31/2025 1:20 PM MANAGER OF PURCHASING Office Visit [facility] Medical [facility] - Family Medicine [facility] [address] [place] [address] Liz Capellan, DO 2 [facility] [address] [address] 06/02/2025 1:30 PM MANAGER OF PURCHASING Office Visit [facility] - Endocrinology - [place] [address] [place] [address] Yasmin Restrepo MD #[address] [place] [address] documented as of this encounter Goals Goal [...] Zones/Action plan education. I will notify my Skilled Laborer if my symptoms fall in the [...] Total Score: 0 07/13/19 25 1:20 PM MANAGER OF PURCHASING documented as of this encounter Care Teams Assembler Motor Vehicle Relationship Specialty Start Date End Date Liz Capellan DO 2 [facility] [address] [place], [place] [id number] PCP - General Family Medicine 12/27/23 Quang Locke DO Gastroenterology 01/18/16 [place] [address] [address] 05/25/21 Werner Swift MD #2 [place] [address] Consulting Physician Pulmonary Disease 01/30/22 Yasmin Restrepo MD [address] [facility] [address] [place] [address] Consulting Physician Endocrinology 07/20/24 Jose Do MD [address] [address] Consulting Physician Colon and Rectal Surgery 10/12/24 documented as of this encounter
--- OUTSIDE RECORDS SUMMARY | 2025-03-23 14:56 | XMS_ITS | Encounter Summary ---
Author Organization [facility] Address [address] [place] [address] Phone Care Team Providers Care Brand Marketing Intern Name Role Phone SloanQuang walker Oswaldo PRESLEY Unavailable [phone] Silvio Schulte MD Unavailable [phone] Werner Swift MD Unavailable Liz Capellan DO Primary Care Provider Yasmin Restrepo MD Unavailable Joes Do MD Unavailable Reason for Visit * Reason Onset Date Comments Advice Only 11/30/2024 Encounter Details Date Type Department Care Team (Late st Contact Info) Description 11/30/2024 Telephone [facility] [address] [place] [address] Liz Capellan DO [address] [id number] Advice Only Social History Tobacco Use Types Packs/Day Years Used Date Smoking Tobacco: Former Cigarettes 2 50 1 - 03/16/2018 Smokeless Tobacco: Never Comments:Still uses nictoine patches and gum Alcohol Use Standard Drinks/Week Comments No 0 (1 standard drink = 0.6 oz pur e alcohol) [facility] Utilities Answer Date Recorded In the [...] declined 10/05/2024 How often do you attend cheondoism or gnosticist serv ices? Patient declined 10/05/2024 Do you belong to any clubs o r organizations such as cheondoism groups, unions, fraternal or athletic groups, or [...] Total Score - Questions 1-9 0 10/25 [facility] of Occupat ional Health - Occupational Stress [...] any time in the past 12 m [facility], were you homeless or living in a alf (including now)? No 10/05/2024 Education Answer Date [...] Urine Symptoms, Urination Pain Outcome: Transfer to machine operator transplanter queue Reason: This is the only possible outcome for these symptoms The caller accepted this outcome. documented in this encounter Plan of Treatment Upcoming Encounters Date Type Department Care Team (Late st Contact Info) Description 04/26/2025 1:30 PM CARROTING MACHINE OFFBEARER Office Visit [facility] Medical [facility] - Pulmonology & Sleep Medicine - [place] [address]2 [facility] [place] [address] Werner Swift MD #2 [place] [address] 05/31/2025 1:20 PM CARROTING MACHINE OFFBEARER Office Visit [facility] Medical [facility] - Family Medicine - [place] [address]2 [place] [address] Liz Capellan, DO 2 [facility]. [address] [place] [address] 06/02/2025 1:30 PM CARROTING MACHINE OFFBEARER Office Visit [facility] - Endocrinology - [place] [address]2 [facility] [place] [address] Yasmin Restrepo MD #[address] [address] documented as of this encounter Goals Goal [...] Zones/Action plan education. I will notify my Mathematics Professor if my symptoms fall in the y ellow zone . I will consider receiving an influenza and pneumonia vaccination, if applicable. -I will call the office if I experience any symptoms listed above to discuss at home management options. Help patient manage COPD Care [facility] No Liz Capellan DO Help patient manage systolic heart failure Care Plan [facility] HEART FAILURE CONCERNS No Liz Capellan DO Help patients manage type 2 diabetes Care Plan [facility] TYPE 2 DIABETES CONCERN No Liz Capellan DO Help patient manage blood glucose Care Plan [facility] TYPE 2 DIABETES INSULIN - ANALOG PATTERN CONCERN No Liz Capellan DO documented as of this encounter Visit Diagnoses Not on filedocumented in this encounter Additional Health Concerns Active Problems Noted Date Diagnosed Date [facility] COPD CONCERN 11/09/2024 [facility] HEART FAILURE CONCERNS 11/09/2024 [facility] TYPE 2 DIABETES CONCERN 11/09/2024 [facility] TYPE 2 DIABETES INSULIN - ANALOG PATTERN CO NCERN 11/09/2024 Infection Onset Date Last Indicated Resolved Time Stenotrophomonas maltophilia Comment:Must have a follow up respiratory sample to remove isolation/infection flag. 10/20/2021 10/20/2021 Assessment Noted Time PHQ-9 Depression Total Score: 0 11/10/19 25 11:00 AM CDT documented as of this encounter Care Teams Brand Marketing Intern Relationship Specialty Start Date End Date Liz Capellan DO 2 [facility] [address] [address] PCP - General Family Medicine 12/27/23 Quang Locke DO Gastroenterology 01/18/16 [place] [address] [address] 05/25/21 Werner Swift MD #2 [place] [address] Consulting Physician Pulmonary Disease 01/30/22 Yasmin Restrepo MD #[address] [address] Consulting Physician Endocrinology 07/20/24 Jose Do MD #[address] [address] Consulting Physician Colon and Rectal Surgery 10/12/24 documented as of this encounter
--- OUTSIDE RECORDS SUMMARY | 2025-03-23 14:56 | XMS_ITS | Encounter Summary ---
Author Organization [facility] Address [address] [place] [address] Phone Care Team Providers Care Starter Cup Powder Mixer Name Role Phone Quang Locke Unavailable [phone] Keith Craft MD Primary Care Provider [phone] Silvio Schulte MD Unavailable [phone] Werner Swift MD Unavailable Liz Capellan DO Primary Care Provider Yasmin Restrepo MD Unavailable Jose Do MD Unavailable Reason for Visit * Reason Comments Medication Refill Encounter Details Date Type Department Care Team (Late st Contact Info) Description 11/11/2023 [facility]ill [facility] #2 [place] [address] Keith Craft MD [address] [place] [address] Medication Refill Social History Tobacco Use Types Packs/Day Years Used Date Smoking Tobacco: Former Cigarettes 2 50 1 - 03/16/2018 Smokeless Tobacco: Never Comments:Still uses nictoine patches and gum Alcohol Use Standard Drinks/Week Comments No 0 (1 standard drink = 0.6 oz pur e alcohol) [facility] Utilities Answer Date Recorded In the [...] Total Score - Questions 1-9 4 10/25 [facility] [place] of Occupat ional Health - Occupational Stress [...] Dept 11/08/23 [facility]23 Office Visit Keith [facility] [place] 05/02/23 Office Visit Keith Craft MD [facility] 04/12/23 Office Visit Keith Craft MD [facility] 12/10/22 Office Visit Keith Craft MD [facility] Showing recent visits within past 365 days and meeting all other requirements Future Appointments Date Type Provider Dept 12/27/23 Appointment Liz Capellan DO [facility] Showing future appointments within next 90 days and meeting all other requirements documented in this encounter Plan of Treatment Upcoming Encounters Date Type Department Care Team (Late st Contact Info) Description 04/26/2025 1:30 PM ARMATURE WINDER REPAIR HELPER Office Visit [facility] Medical [facility] - Pulmonology & Sleep Medicine - [place] [address] [place] [address] Werner Swift MD #2 [place] [address] 05/31/2025 1:20 PM ARMATURE WINDER REPAIR HELPER Office Visit [facility] Medical [facility] - Family Medicine - [place] #[address] [place] [address] Liz Capellan DO [address] [address] 06/02/2025 1:30 PM ARMATURE WINDER REPAIR HELPER Office Visit [facility] Medical [facility] - Endocrinology - [place] #2 [place] [address] Yasmin Restrepo MD #[address] [address] documented as of this encounter Goals Goal [...] plan education. I will notify my Metal Numerical Control Programmer if my symptoms fall in the y [...] - 19 04/27/2024 04/27/2024 04/27/2024 2:19 PM ARMATURE WINDER REPAIR HELPER Respiratory Rule-Out 07/24/2024 07/24/2024 025 2:29 PM ARMATURE WINDER REPAIR HELPER COVID - 19 07/24/2024 07/24/2024 07/24/2024 2:29 PM ARMATURE WINDER REPAIR HELPER COVID - 19 08/22/2024 08/22/2024 08/22/2024 11:4 6 PM CDT COVID - 19 09/03/2024 09/03/2024 09/03/2024 12:4 7 PM CDT Assessment Noted Time PHQ-9 Depression Total Score: 4 11/08/19 9:33 AM CDT documented as of this encounter Care Teams Starter Cup Powder Mixer Relationship Specialty Start Date End Date Keith Craft MD PCP - General Family Medicine 01/14/19 12/26/23 Liz Capellan DO [address] [id number] PCP - General Family Medicine 12/27/23 Quang Locke DO Gastroenterology 01/18/16 [place] [address] [address] 05/25/21 Werner Switf MD #2 [place] [address] Consulting Physician Pulmonary Disease 01/30/22 Yasmin Restrepo MD #[address] [address] Consulting Physician Endocrinology 07/20/24 Jose Do MD [address] [address] Consulting Physician Colon and Rectal Surgery 10/12/24 documented as of this encounter
--- OUTSIDE RECORDS SUMMARY | 2025-03-23 14:56 | XMS_ITS | Encounter Summary ---
Author Organization [facility] Address [address] [place] [address] Phone Care Team Providers Care Broke Beater Operator Name Role Phone Quang Locke Unavailable [phone] Keith Craft MD Primary Care Provider Silvio Schulte MD Unavailable [phone] Werner Swift MD Unavailable Liz Capellan DO Primary Care Provider [phone] Yasmin Restrepo MD Unavailable Jose Do MD Unavailable Reason for Visit * Reason Comments Medication Refill Encounter Details Date Type Department Care Team (Late st Contact Info) Description 12/26/2023 Refill [facility] - Family Medicine [facility] #2 [place] [address] Keith Craft MD [address] [place] [address] Medication Refill Social History Tobacco Use Types Packs/Day Years Used Date Smoking Tobacco: Former Cigarettes 2 50 1 - 03/16/2018 Smokeless Tobacco: Never Comments:Still uses nictoine patches and gum Alcohol Use Standard Drinks/Week Comments No 0 (1 standard drink = 0.6 oz pur e alcohol) [facility] Utilities Answer Date Recorded In the [...] attend chur ch or spiritism services? Never 12/27/2023 Do you belong to [...] Total Score - Questions 1-9 4 10/25 [facility] of Occupat ional Health - Occupational Stress [...] in a fpc (including now)? No 07/13/2023 Housing Stability Vital Sign Answer Richar e Recorded In the last 12 months, was t here a time when you were not able to pay the mortgage or rent on time? No 12/27/2023 In the past 12 months, how m any times have you moved where you were living? 0 12/27/2023 At any time in the past 12 m [facility], were you homeless or living in a fpc (including now)? No 12/27/2023 Education Answer Date [...] drink 12/27/2023 1:03 PM CDT [facility] [place] [facility] * Q3: How often do you have six or more drinks on one occasion? Answer Date of Assessment Author Never 12/27/2023 1:03 PM CDT [facility] documented as of this encounter Plan of Treatment Upcoming Encounters Date Type Department Care Team (Late st Contact Info) Description 04/26/2025 1:30 PM HEAD OF STRATEGY [facility] - Pulmonology & Sleep Medicine - [place] [address] [place] [address] Werner Swift MD #2 [place] [address] 05/31/2025 1:20 PM HEAD OF STRATEGY Office Visit [facility] Medical [facility] - Family Medicine - [place] #[address] [place] [address] Liz Capellan, DO 2 [facility] [address] [place] [address] 06/02/2025 1:30 PM HEAD OF STRATEGY Office Visit [facility] Medical [facility] - Endocrinology - [place] #[address] [place] [address] Yasmin Restrepo MD #[address] [address] documented as of this encounter Goals Goal [...] plan education. I will notify my Air Pollution Specialist if my symptoms fall in the [...] 19 04/27/2024 04/27/2024 04/27/2024 2:19 PM HEAD OF STRATEGY Respiratory Rule-Out 07/24/2024 07/24/2024 025 2:29 PM HEAD OF STRATEGY COVID - 19 07/24/2024 07/24/2024 07/24/2024 2:29 PM HEAD OF STRATEGY COVID - 19 08/22/2024 08/22/2024 08/22/2024 11:4 6 PM CDT COVID - 19 09/03/2024 09/03/2024 09/03/2024 12:4 7 PM CDT Assessment Noted Time PHQ-9 Depression Total Score: 4 11/08/19 9:33 AM CDT documented as of this encounter Care Teams Broke Beater Operator Relationship Specialty Start Date End Date Keith Craft MD PCP - General Family Medicine 01/14/19 12/26/23 Liz Capellan DO [address] [address] PCP - General Family Medicine 12/27/23 Quang Locke DO Gastroenterology 01/18/16 [place] [address] [address] 05/25/21 Werner Swift MD #2 [place] [address] Consulting Physician Pulmonary Disease 01/30/22 Yasmin Restrepo MD #[address] [address] Consulting Physician Endocrinology 07/20/24 Jose Do MD #[address] [address] Consulting Physician Colon and Rectal Surgery 10/12/24 documented as of this encounter
--- OUTSIDE RECORDS SUMMARY | 2025-03-23 14:56 | XMS_ITS | Encounter Summary ---
Author Organization [facility] Address [address] [place] [address] Phone Care Team Providers Care Gm/Svp Global Publisher Business Name Role Phone Quang Locke DO Unavailable [phone] Keith Craft MD Primary Care Provider [phone] Silvio Schulte MD Unavailable [phone] Werner Swift MD Unavailable Liz Capellan DO Primary Care Provider [phone] Yasmin Restrepo MD Unavailable Jose Do MD Unavailable Reason for Visit * Reason Comments Medication Refill Encounter Details Date Type Department Care Team (Late st Contact Info) Description 10/08/2023 Refill [facility] [address] [place] [address] Werner Swift MD #[address] [place] [address] Medication Refill Social History Tobacco Use Types Packs/Day Years Used Date Smoking Tobacco: Former Cigarettes 2 50 1 - 03/16/2018 Smokeless Tobacco: Never Comments:Still uses nictoine patches and gum Alcohol Use Standard Drinks/Week Comments No 0 (1 standard drink = 0.6 oz pur e alcohol) [facility] Utilities Answer Date Recorded In the [...] often do you attend chur ch or anabaptism services? Never 07/13/2023 Do you belong to [...] Score - Questions 1-9 0 08/2021 [facility] of Occupat ional Health - Occupational [...] Contact Info) Description 04/26/2025 1:30 PM SUPERVISOR SHOP [facility] [place] #2 [facility] [place] [address] Werner Swift MD #2 [facility] [address] 05/31/2025 1:20 PM SUPERVISOR SHOP Office Visit [facility] - Family Medicine - [place] #2 [facility] [place] [address] Liz Capellan, DO [address] [address] 06/02/2025 1:30 PM SUPERVISOR SHOP Office Visit [facility] Endocrinology - [place] #2 [facility] [place] [address] Yasmin Restrepo MD #[address] [place] [address] documented as of this encounter Goals Goal [...] Zones/Action plan education. I will notify my Lap Layer if my symptoms fall in the y [...] 19 04/27/2024 04/27/2024 04/27/2024 2:19 PM SUPERVISOR SHOP Respiratory Rule-Out 07/24/2024 07/24/2024 025 2:29 PM SUPERVISOR SHOP COVID - 19 07/24/2024 07/24/2024 07/24/2024 2:29 PM SUPERVISOR SHOP COVID - 19 08/22/2024 08/22/2024 08/22/2024 11:4 6 PM CDT COVID - 19 09/03/2024 09/03/2024 09/03/2024 12:4 7 PM CDT Assessment Noted Time PHQ-9 Depression Total Score: 1 03/07/20 21 10:29 AM CDT documented as of this encounter Care Teams Gm/Svp Global Publisher Business Relationship Specialty Start Date End Date Keith Craft MD PCP - General Family Medicine 01/14/19 12/26/23 Liz Capellan DO 2 [place] [address] PCP - General Family Medicine 12/27/23 Quang Locke DO Gastroenterology 01/18/16 [place] [address] [address] 05/25/21 Werner Swift MD #2 [place] [address] Consulting Physician Pulmonary Disease 01/30/22 Yasmin Restrepo MD #[address] [address] Consulting Physician Endocrinology 07/20/24 Jose Do MD #[address] [address] Consulting Physician Colon and Rectal Surgery 10/12/24 documented as of this encounter
--- OUTSIDE RECORDS SUMMARY | 2025-03-23 14:56 | XMS_ITS | Encounter Summary ---
Author Organization [facility] Address [address] [place] [address] Phone Care Team Providers Care Solution Engineer Name Role Phone Quang Locke Unavailable [phone] Keith Craft MD Primary Care Provider [phone] Bri Rollins RN Unavailable Unavailable Silvio Schulte MD Unavailable [phone] Bri Rollins RN Unavailable Unavailable Werner Swift MD Unavailable Liz Capellan DO Primary Care Provider [phone] Yasmin Restrepo MD Unavailable Jose Do MD Unavailable Reason for Visit * Reason Comments Medication Refill Encounter Details Date Type Department Care Team (Late st Contact Info) Description 10/30/2022 [facility]ill [facility] #2 [place] [address] Keith Craft MD #1 [place] [address] Medication Refill Social History Tobacco [...] Dept 09/10/22 Office Visit Keith Craft MD [facility] 07/18/22 Office Visit Kerri Kauffman, DRAFTER (CAD) ELECTRONIC, PET CARE TECHNICIAN [facility] 06/07/22 Office Visit Keith Craft [facility] 03/02/22 Procedure Visit [facility] 03/02/22 Office Visit Keith Craft MD [facility] [...] [facility] 07/18/22 Office Visit Kerri Kauffman APRN, PET CARE TECHNICIAN [facility] 06/07/22 Office Visit Keith Craft MD [facility] 03/02/22 Procedure [facility] Office Visit Keith Craft MD [facility] 11/03/21 Office Visit Keith Craft MD [facility] Showing recent visits within past 365 [...] [place] 07/18/22 Office Visit Kerri [facility]ffman [facility] 06/07/22 Office Visit Keith Craft MD [facility] 03/02/22 Procedure Visit [facility] [address] 03/02/22 Office Visit Keith Craft MD [facility] 11/03/21 Office Visit Keith Craft MD [facility] Showing recent visits within past 365 days and meeting all other requirements Future Appointments Date Type Provider Dept 12/10/22 [address] Craft [facility] Showing future appointments within next 90 days and meeting all other requirements documented in this encounter Plan of Treatment Upcoming Encounters Date Type Department Care Team (Late st Contact Info) Description 04/26/2025 1:30 PM MANAGER PRIVACY Office Visit [facility] Medical [facility] - Pulmonology & Sleep Medicine - [place] [address] [place] [address] Werner Swift MD [address]2 [place] [address] 05/31/2025 1:20 PM MANAGER PRIVACY Office Visit [facility] Medical [facility] - Family Medicine - [place] #2 [facility] [place] [address] Liz Capellan, DO 2 [facility] [address] [place] [address] 06/02/2025 1:30 PM MANAGER PRIVACY Office Visit [facility] - Endocrinology - [place] #2 [facility] [place] [address] Yasmin Restrepo MD #[address] [place] [address] documented as of this encounter Goals Goal [...] Zones/Action plan education. I will notify my Computer Consultant if my symptoms fall in the [...] 04/18/2023 04/18/2023 04/28/2023 12:1 6 AM MANAGER PRIVACY COVID - 19 07/13/2023 07/13/2023 07/23/2023 12:1 6 AM MANAGER PRIVACY Respiratory Rule Out - RPA 03/17/2024 03/17/2024 1 3:36 PM CDT COVID - 19 04/27/2024 04/27/2024 04/27/2024 2:19 PM MANAGER PRIVACY Respiratory Rule-Out 07/24/2024 07/24/2024 025 2:29 PM MANAGER PRIVACY COVID - 19 07/24/2024 07/24/2024 07/24/2024 2:29 PM MANAGER PRIVACY COVID - 19 08/22/2024 08/22/2024 08/22/2024 11:4 6 PM CDT COVID - 19 09/03/2024 09/03/2024 09/03/2024 12:4 7 PM CDT Assessment Noted Time PHQ-9 Depression Total Score: 1 03/07/20 10:29 AM CDT documented as of this encounter Care Teams Solution Engineer Relationship Specialty Start Date End Date Keith Craft MD PCP - General Family Medicine 01/14/19 12/26/23 Liz Capellan DO [address] [address] PCP - General Family Medicine 12/27/23 Quang Locke DO Gastroenterology 01/18/16 Bir Rollins RN [place] Computer Consultant 03/07/21 05/22/23 [place] [id number] [address] 05/25/21 Bri Rollins RN [place] Nurse Computer Consultant 03/07/21 05/23/23 Werner Swift MD #2 [place] [address] Consulting Physician Pulmonary Disease 01/30/22 Yasmin Restrepo MD #[address] [address] Consulting Physician Endocrinology 07/20/24 Jose Do MD [address] [address] Consulting Physician Colon and Rectal Surgery 10/12/24 documented as of this encounter
--- OUTSIDE RECORDS SUMMARY | 2025-03-23 14:56 | XMS_ITS | Encounter Summary ---
Author Organization [facility] Address [address] [place] [address] Phone Care Team Providers Care Dental Laboratory Technician Name Role Phone SloanQuang walker Oswaldo PRESLEY Unavailable [phone] Silvio Schulte MD Unavailable [phone] Werner Swfit MD Unavailable Liz Capellan DO Primary Care Provider Yasmin Restrepo MD Unavailable Jose Do MD Unavailable Encounter Details Date Type Department Care Team (Late st Contact Info) Description 10/08/2024 Home Health Resumpti on of Care Planning [facility] [address] [place] [address] Social History Tobacco Use Types Packs/Day Years Used Date Smoking Tobacco: Former Cigarettes 2 50 1 - 03/16/2018 Smokeless Tobacco: Never Comments:Still uses nictoine patches and gum Alcohol Use Standard Drinks/Week Comments No 0 (1 standard drink = 0.6 oz pur e alcohol) [facility] Utilities Answer Date Recorded In the past 12 months has [employer], gas, oil, or water company threatened to [...] declined 10/05/2024 How often do you attend christianity or druze serv ices? Patient declined 10/05/2024 Do you belong to any clubs o r organizations such as christianity groups, unions, fraternal or athletic groups, or [...] in a half-way (including now)? No 07/13/2023 Housing Stability Vital Sign Answer Richar e Recorded In the last 12 months, was t here a time when you were not able to pay the mortgage or rent on time? No 10/05/2024 In the past 12 months, how m any times have you moved where you were living? 1 10/05/2024 At any time in the past 12 m [facility], were you homeless or living in a half-way (including now)? No 10/05/2024 Education Answer Date [...] st Contact Info) Description 04/26/2025 1:30 PM VENUE MANAGER Office Visit [facility] - Pulmonology & [facility] Medicine [place] [address] [place] [address] Werner Swift MD [address] [place] [address] 05/31/2025 1:20 PM VENUE MANAGER Office Visit [facility] Medical [facility] - Family Medicine - [place] [address] [place] [address] Liz Capellan, DO 2 [facility]. [address] [place] [address] 06/02/2025 1:30 PM VENUE MANAGER Office Visit [facility] - Endocrinology - [place] [address]2 [place] [address] Yasmin Restrepo MD #[address] [address] documented as of this encounter Goals Goal [...] Zones/Action plan education. I will notify my Belt Dresser if my symptoms fall in the [...] Depression Total Score: 0 07/13/19 1:20 PM VENUE MANAGER documented as of this encounter Care Teams Dental Laboratory Technician Relationship Specialty Start Date End Date Liz Capellan DO 2 [facility] [address] [place] [address] PCP - General Family Medicine 12/27/23 Quang Locke DO Gastroenterology 01/18/16 [place] [address] [address] 05/25/21 Werner Swift MD #2 [place] [address] Consulting Physician Pulmonary Disease 01/30/22 Yasmin Restrepo MD #2 [facility] [address] [place] [address] Consulting Physician Endocrinology 07/20/24 Jose Do MD #[address] [address] Consulting Physician Colon and Rectal Surgery 10/12/24 documented as of this encounter
--- OUTSIDE RECORDS SUMMARY | 2025-03-23 14:56 | XMS_ITS | Encounter Summary ---
Author Organization [facility] Address [address] [place] [address] Phone Care Team Providers Care Apartment Rental Agent Name Role Phone Quang Locke DO Unavailable [phone] Keith Craft MD Primary Care Provider [phone] Silvio Schulte MD Unavailable [phone] Werner Swift MD Unavailable Liz Capellan DO Primary Care Provider [phone] Yasmin Restrepo MD Unavailable Jose Do MD Unavailable Reason for Visit * Reason Comments Medication Refill Encounter Details Date Type Department Care Team (Late st Contact Info) Description 10/28/2023 Refill [facility] #2 [place] [address] Werner Swift MD [address]2 [place] [address] Medication Refill Social History Tobacco Use Types Packs/Day Years Used Date Smoking Tobacco: Former Cigarettes 2 50 1 - 03/16/2018 Smokeless Tobacco: Never Comments:Still uses nictoine patches and gum Alcohol Use Standard Drinks/Week Comments No 0 (1 standard drink = 0.6 oz pur e alcohol) [facility] Utilities Answer Date Recorded In the [...] often do you attend chur ch or restoration services? Never 07/13/2023 Do you belong to [...] 1-9 0 08/2021 [facility] [place] [facility] Occupat ional Health - Occupational Stress [...] Swift MD [facility] 08/15/23 Office Visit Keith Craft MD [facility] 05/21/23 Office Visit Werner Swift MD [facility] [place] [facility] 05/02/23 Office Visit Keith Craft MD [facility] 04/12/23 Office Visit Keith Craft MD [facility] 01/29/23 Office Visit Werner Swift MD [facility] [place] [facility] 12/10/22 Office Visit Keith Craft MD [facility] Showing recent visits within past 365 days and meeting all other requirements Future Appointments Date Type Provider Dept 11/21/23 Appointment Werner Swift MD [facility] [place] [facility] 12/20/23 Appointment Keith Craft MD [facility] [...] Werner Swift MD [facility] [place] [facility] 08/15/23 Office Visit Keith Craft MD [facility] 05/21/23 Office Visit Werner Swift MD [facility] [place] [facility] 05/02/23 Office Visit Keith Craft MD [facility] 04/12/23 Office Visit Keith Craft MD [facility] 01/29/23 Office Visit Werner Swift MD [facility] 12/10/22 Office Visit Keith Craft MD [facility] [place] Showing recent visits within past 365 days and meeting all other requirements Future Appointments Date Type Provider Dept 11/21/23 Appointment Werner Swift MD [facility] [place] [facility] 12/20/23 Appointment Keith Craft MD [facility] [place] Showing future appointments within next 90 days and meeting all other requirements documented in this encounter Plan of Treatment Upcoming Encounters Date Type Department Care Team (Late st Contact Info) Description 04/26/2025 1:30 PM CENTER AISLE CASHIER Office Visit [facility] Medical [facility] - Pulmonology & Sleep Medicine [facility] #2 [place] [address] Werner Swift MD #[address] [place] [address] 05/31/2025 1:20 PM CENTER AISLE CASHIER Office Visit [facility] Medical [facility] - Family Medicine - [place] [address] [place] [address] Liz Capellan, DO [address] [address] 06/02/2025 1:30 PM CENTER AISLE CASHIER Office Visit [facility] - Endocrinology [facility] #2 [facility] [place] [address] Yasmin Restrepo MD #[address] [address] documented as of this encounter Goals Goal [...] Zones/Action plan education. I will notify my Frame Polisher if my symptoms fall in the y [...] - 19 04/27/2024 04/27/2024 04/27/2024 2:19 PM CENTER AISLE CASHIER Respiratory Rule-Out 07/24/2024 07/24/2024 025 2:29 PM CENTER AISLE CASHIER COVID - 19 07/24/2024 07/24/2024 07/24/2024 2:29 PM CENTER AISLE CASHIER COVID - 19 08/22/2024 08/22/2024 08/22/2024 11:4 6 PM CDT COVID - 19 09/03/2024 09/03/2024 09/03/2024 12:4 7 PM CDT Assessment Noted Time PHQ-9 Depression Total Score: 1 03/07/20 21 10:29 AM CDT documented as of this encounter Care Teams Apartment Rental Agent Relationship Specialty Start Date End Date Keith Craft MD PCP - General Family Medicine 01/14/19 12/26/23 Liz Capellan DO [address] [address] PCP - General Family Medicine 12/27/23 Quang Locke DO Gastroenterology 01/18/16 [place] [address] [address] 05/25/21 Werner Swift MD #2 [place] [address] Consulting Physician Pulmonary Disease 01/30/22 Yasmin Restrepo MD #[address] [address] Consulting Physician Endocrinology 07/20/24 Jose Do MD #[address] [address] Consulting Physician Colon and Rectal Surgery 10/12/24 documented as of this encounter
--- OUTSIDE RECORDS SUMMARY | 2025-03-23 14:56 | XMS_ITS | Encounter Summary ---
Author Organization [facility] Address [address] [place] [address] Phone Care Team Providers Care Wine Cellar Worker Name Role Phone Quang Locke Unavailable Keith Craft MD Primary Care Provider [phone] Bri Rollins RN Unavailable Unavailable Silvio Schulte MD Unavailable [phone] Bri Rollins RN Unavailable Unavailable Werner Swift MD Unavailable Liz Capellan DO Primary Care Provider [phone] Yasmin Restrepo MD Unavailable Jose Do MD Unavailable Reason for Visit * Reason Comments Medication Refill Encounter Details Date Type Department Care Team (Late st Contact Info) Description 11/29/2022 Refill [facility] #2 [place] [address] Keith Craft MD #1 [place] [address] Medication Refill Social History Tobacco [...] [facility] 07/18/22 Office Visit Kerri Kauffman CONSTRUCTION TRADES TEACHER, JAKOB [facility] 06/07/22 Office Visit Keith [...] Refused Prescriptions Disp Refills ergocalciferol (VITAMIN D) 09292 UNIT Capsule [Pharmacy Med Name: VITAMIN D [id number] CAPSULE] 12 Capsule 0 Sig: TAKE ONE CAPSULE BY MOUTH ONE TIME WEEKLY Vitamin Supplements (Adult) Protocol Failed - 11/29/2022 11:57 AM Failed - Active on medication list Failed - Vitamin D less than 1.25mg Passed - Visit with relevant provider in past 12 months or upcoming 90 days Recent Visits Date Type Provider Dept 09/10/22 Office Visit Keith [facility] MD [facility] 07/18/22 Office Visit Kerri Kauffman, CONSTRUCTION TRADES TEACHER, HORIZONTAL BORING MILL OPERATOR [facility] 06/07/22 Office Visit Keith Craft MD [facility] 03/02/22 Procedure Visit [facility] 03/02/22 Office Visit Keith Craft MD [facility] Showing recent visits within past 365 days and meeting all other requirements Future Appointments Date Type Provider Dept 12/10/22 Appointment Keith Craft MD [facility] Showing future appointments within next 90 days and meeting all other requirements * Telephone Encounter - Gloria Cornejo RN - 11/30/2022 8:21 AM CDT Name from pharmacy: VITAMIN D [id number] CAPSULE Will file in chart as: ergocalciferol (VITAMIN D) 42855 UNIT Capsule The original prescription was discontinued on 11/01/2022 by Keith Craft MD documented in this encounter Plan of Treatment Upcoming Encounters Date Type Department Care Team (Late st Contact Info) Description 04/26/2025 1:30 PM PANEL ASSEMBLER Office Visit [facility] - Pulmonology & [facility] Medicine - [place] [address] [place] [address] Werner Swift MD [address] [place] [address] 05/31/2025 1:20 PM PANEL ASSEMBLER Office Visit [facility] Medical [facility] - Family Medicine - [place] #2 [place] [address] Liz Capellan, DO 2 [facility] [address] [place] [address] 06/02/2025 1:30 PM PANEL ASSEMBLER Office Visit [facility] - Endocrinology - [place] #2 [place] [address] Yasmin Restrepo MD #2 [facility] [address] [place] [address] documented as of this encounter Goals Goal [...] plan education. I will notify my Manager Social Responsibility if my symptoms fall in the y [...] 19 04/18/2023 04/18/2023 04/28/2023 12:1 6 AM PANEL ASSEMBLER COVID - 19 07/13/2023 07/13/2023 07/23/2023 12:1 6 AM PANEL ASSEMBLER Respiratory Rule Out - RPA 03/17/2024 03/17/2024 1 3:36 PM CDT COVID - 19 04/27/2024 04/27/2024 04/27/2024 2:19 PM PANEL ASSEMBLER Respiratory Rule-Out 07/24/2024 07/24/2024 025 2:29 PM PANEL ASSEMBLER COVID - 19 07/24/2024 07/24/2024 07/24/2024 2:29 PM PANEL ASSEMBLER COVID - 19 08/22/2024 08/22/2024 08/22/2024 11:4 6 PM CDT COVID - 19 09/03/2024 09/03/2024 09/03/2024 12:4 7 PM CDT Assessment Noted Time PHQ-9 Depression Total Score: 1 03/07/20 21 10:29 AM CDT documented as of this encounter Care Teams Wine Cellar Worker Relationship Specialty Start Date End Date Kieth Craft MD PCP - General Family Medicine 01/14/19 12/26/23 Liz Capellan DO [address] [address] PCP - General Family Medicine 12/27/23 Quang Locke DO Gastroenterology 01/18/16 Bri Rollins RN [place] Manager Social Responsibility 03/07/21 05/22/23 [place] [address] [address] 05/25/21 Bri Rollins, RN [place] Nurse Manager Social Responsibility 03/07/21 05/23/23 Werner Swift MD #2 [place] [address] Consulting Physician Pulmonary Disease 01/30/22 Yasmin Restrepo MD #[address] [address] Consulting Physician Endocrinology 07/20/24 Jose Do MD #[address] [address] Consulting Physician Colon and Rectal Surgery 10/12/24 documented as of this encounter
--- OUTSIDE RECORDS SUMMARY | 2025-03-23 14:57 | XMS_ITS | Encounter Summary ---
Author Organization [facility] Address [address] [place] [address] Phone Care Team Providers Care Building Principal Name Role Phone Quang Locke Unavailable [phone] Keith Craft MD Primary Care Provider [phone] Bri Rollins RN Unavailable Unavailable Silvio Schulte MD Unavailable [phone] Bri Rollins RN Unavailable Unavailable Werner Swift MD Unavailable Liz Capellan DO Primary Care Provider [phone] Yasmin Restrepo MD Unavailable Jose Do MD Unavailable Reason for Visit * Reason Comments Medication Refill Encounter Details Date Type Department Care Team (Late st Contact Info) Description 03/23/2021 Refill [facility] #2 [place] [address] Keith Craft MD [address]1 [place] [address] Medication Refill Social History Tobacco [...] MD [facility] [place] Showing recent visits within past 182 days and meeting all other requirements Today's Visits Date Type Provider Dept 03/23/21 Office Visit Keith Craft MD [facility] Showing today's visits and meeting all other requirements Future Appointments Date Type Provider Dept 04/14/21 Appointment Keith Craft MD [facility] [place] Showing future appointments within next 90 days and meeting all other requirements Passed - Has an encounter in the past 6 months with a depression or anxiety visit diagnosis documented in this encounter Plan of Treatment Upcoming Encounters Date Type Department Care Team (Late st Contact Info) Description 04/26/2025 1:30 PM SPINNER HYDRAULIC Office Visit [facility] Medical [facility] - Pulmonology & Sleep Medicine - [place] #2 [place] [address] Werner Swift MD #2 [place] [address] 05/31/2025 1:20 PM SPINNER HYDRAULIC Office Visit [facility] Medical [facility] - Family Medicine - [place] #2 [place] [address] Liz Capellan, DO 2 [facility] [address] [place] [address] 06/02/2025 1:30 PM SPINNER HYDRAULIC Office Visit [facility] Medical [facility] - Endocrinology - [place] #2 [place] [address] Yasmin Restrepo MD #[address] [place] [address] documented as of this encounter Goals Goal [...] Zones/Action plan education. I will notify my Cone Operator if my symptoms fall in the [...] - 19 07/23/2021 07/23/2021 07/24/2021 6:31 AM SPINNER HYDRAULIC COVID - 19 10/19/2021 10/19/2021 10/20/2021 7:45 AM CDT Respiratory Rule Out - RPA 10/19/2021 10/19/2021 0 10/20/2021 2:10 PM CDT Stenotrophomonas maltophilia Comment:Must have a follow up respiratory sample to remove isolation/infection flag. 10/20/2021 10/20/2021 COVID - 19 04/20/2022 04/20/2022 04/30/2022 12:1 8 AM SPINNER HYDRAULIC COVID - 19 07/18/2022 07/18/2022 07/28/2022 12:1 6 AM SPINNER HYDRAULIC COVID - 19 08/21/2022 08/21/2022 08/22/2022 8:31 AM CDT Respiratory Rule Out - RPA 08/21/2022 08/21/2022 0 08/22/2022 3:21 PM CDT COVID - 19 04/18/2023 04/18/2023 04/28/2023 12:1 6 AM SPINNER HYDRAULIC COVID - 19 07/13/2023 07/13/2023 07/23/2023 12:1 6 AM SPINNER HYDRAULIC Respiratory Rule Out - RPA 03/17/2024 03/17/2024 1 3:36 PM CDT COVID - 19 04/27/2024 04/27/2024 04/27/2024 2:19 PM SPINNER HYDRAULIC Respiratory Rule-Out 07/24/2024 07/24/2024 025 2:29 PM SPINNER HYDRAULIC COVID - 19 07/24/2024 07/24/2024 07/24/2024 2:29 PM SPINNER HYDRAULIC COVID - 19 08/22/2024 08/22/2024 08/22/2024 11:4 6 PM CDT COVID - 19 09/03/2024 09/03/2024 09/03/2024 12:4 7 PM CDT Assessment Noted Time PHQ-9 Depression Total Score: 1 03/07/20 21 10:29 AM CDT documented as of this encounter Care Teams Building Principal Relationship Specialty Start Date End Date Keith Craft MD PCP - General Family Medicine 01/14/19 12/26/23 Liz Capellan DO [address] [address] PCP - General Family Medicine 12/27/23 Quang Locke DO Gastroenterology 01/18/16 Bri Rollnis RN [place] Cone Operator 03/07/21 05/22/23 [place] [address] [address] 05/25/21 Bri Rollins, RN [place] Nurse Cone Operator 03/07/21 05/23/23 Werner Swift MD #2 [place] [address] Consulting Physician Pulmonary Disease 01/30/22 Yasmin Restrepo MD #[address] [address] Consulting Physician Endocrinology 07/20/24 Jose Do MD #[address] [address] Consulting Physician Colon and Rectal Surgery 10/12/24 documented as of this encounter
--- OUTSIDE RECORDS SUMMARY | 2025-03-23 14:57 | XMS_ITS | Encounter Summary ---
Author Organization [facility] Address [address] [place] [address] Phone Care Team Providers Care Desizing Machine Operator Name Role Phone Quang Locke Unavailable [phone] Keith Craft MD Primary Care Provider [phone] Bri Rollins RN Unavailable Unavailable Silvio Schulte MD Unavailable [phone] Bri Rollins RN Unavailable Unavailable Werner Swift MD Unavailable Liz Capellan DO Primary Care Provider [phone] Yasmin Restrepo MD Unavailable Jose Do MD Unavailable Reason for Visit * Reason Comments Medication Refill Encounter Details Date Type Department Care Team (Late st Contact Info) Description 02/20/2021 Refill [facility] [address] [place] [address] Keith Craft MD [address]1 [place] [address] Medication Refill Social History Tobacco [...] [place] 04/25/20 Office Visit Keith Craft MD [facility] [place] Showing recent visits within past 365 days and meeting all other requirements Future Appointments Date Type Provider Dept 04/14/21 Appointment Keith Craft MD [facility] [place] Showing future appointments within next 90 days and meeting all other requirements documented in this encounter Plan of Treatment Upcoming Encounters Date Type Department Care Team (Late st Contact Info) Description 04/26/2025 1:30 PM STRAIGHTENING MACHINE OPERATOR Office Visit [facility] - Pulmonology & Sleep Medicine - [place] [address]2 [place] [address] Werner Swift MD #2 [place] [address] 05/31/2025 1:20 PM STRAIGHTENING MACHINE OPERATOR Office Visit [facility] - Family Medicine - [place] #2 [facility] [place] [address] Liz Capellan, DO [address] [address] 06/02/2025 1:30 PM STRAIGHTENING MACHINE OPERATOR Office Visit [facility] - Endocrinology - [place] #2 [place] [address] Yasmin Restrepo MD #[address] [address] documented as of this encounter Visit Diagnoses Diagnosis Pulmonary emphysema, unspecified emphysema type documented in this encounter Additional Health Concerns Infection Onset Date Last Indicated Resolved Time COVID - 19 07/23/2021 07/23/2021 07/24/2021 6:31 AM STRAIGHTENING MACHINE OPERATOR COVID - 19 10/19/2021 10/19/2021 10/20/2021 7:45 AM CDT Respiratory Rule Out - RPA 10/19/2021 10/19/2021 0 10/20/2021 2:10 PM CDT Stenotrophomonas maltophilia Comment:Must have a follow up respiratory sample to remove isolation/infection flag. 10/20/2021 10/20/2021 COVID - 19 04/20/2022 04/20/2022 04/30/2022 12:1 8 AM STRAIGHTENING MACHINE OPERATOR COVID - 19 07/18/2022 07/18/2022 07/28/2022 12:1 6 AM STRAIGHTENING MACHINE OPERATOR COVID - 19 08/21/2022 08/21/2022 08/22/2022 8:31 AM CDT Respiratory Rule Out - RPA 08/21/2022 08/21/2022 0 08/22/2022 3:21 PM CDT COVID - 19 04/18/2023 04/18/2023 04/28/2023 12:1 6 AM STRAIGHTENING MACHINE OPERATOR COVID - 19 07/13/2023 07/13/2023 07/23/2023 12:1 6 AM STRAIGHTENING MACHINE OPERATOR Respiratory Rule Out - RPA 03/17/2024 03/17/2024 1 3:36 PM CDT COVID - 19 04/27/2024 04/27/2024 04/27/2024 2:19 PM STRAIGHTENING MACHINE OPERATOR Respiratory Rule-Out 07/24/2024 07/24/2024 025 2:29 PM STRAIGHTENING MACHINE OPERATOR COVID - 19 07/24/2024 07/24/2024 07/24/2024 2:29 PM STRAIGHTENING MACHINE OPERATOR COVID - 19 08/22/2024 08/22/2024 08/22/2024 11:4 6 PM CDT COVID - 19 09/03/2024 09/03/2024 09/03/2024 12:4 7 PM CDT Assessment Noted Time PHQ-9 Depression Total Score: 0 02/04/20 21 11:12 AM CDT documented as of this encounter Care Teams Desizing Machine Operator Relationship Specialty Start Date End Date Keith Craft MD PCP - General Family Medicine 01/14/19 12/26/23 Liz Capellan DO [address] [facility] [address] [place] [address] PCP - General Family Medicine 12/27/23 Quang Locke DO Gastroenterology 01/18/16 Bri Rollins, KATEY [place] Community Specialist 03/07/21 05/22/23 [place] [id number] [address] 05/25/21 Bri Rollins RN [place] Nurse Community Specialist 03/07/21 05/23/23 Werner Swift MD #[address] [place] [address] Consulting Physician Pulmonary Disease 01/30/22 Yasmin Restrepo MD #2 [facility] [address] [place] [address] Consulting Physician Endocrinology 07/20/24 Jose Do MD #2 [facility] [address] [place] [address] Consulting Physician Colon and Rectal Surgery 10/12/24 documented as of this encounter
--- OUTSIDE RECORDS SUMMARY | 2025-03-23 14:57 | XMS_ITS | Encounter Summary ---
Author Organization [facility] Address [address] [place] [address] Phone Care Team Providers Care Noteman Name Role Phone Quang Locke Unavailable [phone] Keith Craft MD Primary Care Provider [phone] Silvio Schulte MD Unavailable [phone] Werner Swift MD Unavailable Liz Capellan DO Primary Care Provider [phone] Yasmin Restrepo MD Unavailable Jose Do MD Unavailable Reason for Visit * Reason Comments Medication Refill Encounter Details Date Type Department Care Team (Late st Contact Info) Description 10/29/2023 Refill [facility] #2 [place] [address] Keith Craft MD #1 [place] [address] Medication Refill Social History Tobacco Use Types Packs/Day Years Used Date Smoking Tobacco: Former Cigarettes 2 50 1 - 03/16/2018 Smokeless Tobacco: Never Comments:Still uses nictoine patches and gum Alcohol Use Standard Drinks/Week Comments No 0 (1 standard drink = 0.6 oz pur e alcohol) [facility] Utilities Answer Date Recorded In the [...] Score - Questions 1-9 0 08/2021 [facility] [place] of Occupat ional Health - Occupational Stress [...] [place] 05/02/23 Office Visit Keith Craft MD [facility] [place] Showing recent visits [...] st Contact Info) Description 04/26/2025 1:30 PM LEATHER BELT SHAPER Office Visit [facility] Medical [facility] - Pulmonology & Sleep Medicine - [place] #2 [place] [address] Werner Swift MD #2 [facility] [address] 05/31/2025 1:20 PM LEATHER BELT SHAPER Office Visit [facility] - Family Medicine - [place] #2 [place] [address] Liz Capellan, DO 2 [facility] [address] [place] [address] 06/02/2025 1:30 PM LEATHER BELT SHAPER Office Visit [facility] Medical [facility] - Endocrinology - [place] #2 [place] [address] Yasmin Restrepo MD #[address] [place] [address] documented as of this encounter Goals Goal [...] Zones/Action plan education. I will notify my Dynamometer Repairer if my symptoms fall in the [...] - 19 04/27/2024 04/27/2024 04/27/2024 2:19 PM LEATHER BELT SHAPER Respiratory Rule-Out 07/24/2024 07/24/2024 025 2:29 PM LEATHER BELT SHAPER COVID - 19 07/24/2024 07/24/2024 07/24/2024 2:29 PM LEATHER BELT SHAPER COVID - 19 08/22/2024 08/22/2024 08/22/2024 11:4 6 PM CDT COVID - 19 09/03/2024 09/03/2024 09/03/2024 12:4 7 PM CDT Assessment Noted Time PHQ-9 Depression Total Score: 1 03/07/20 21 10:29 AM CDT documented as of this encounter Care Teams Noteman Relationship Specialty Start Date End Date Keith Craft MD PCP - General Family Medicine 01/14/19 12/26/23 Liz Capellan DO [address] [address] PCP - General Family Medicine 12/27/23 Quang Locke DO Gastroenterology 01/18/16 [place] [address] [address] 05/25/21 Werner Swift MD #2 [place] [address] Consulting Physician Pulmonary Disease 01/30/22 Yasmin Restrepo MD #[address] [address] Consulting Physician Endocrinology 07/20/24 Jose Do MD #[address] [address] Consulting Physician Colon and Rectal Surgery 10/12/24 documented as of this encounter
--- OUTSIDE RECORDS SUMMARY | 2025-03-23 14:57 | XMS_ITS | Encounter Summary ---
Author Organization [facility] Address [address] [place] [address] Phone Care Team Providers Care Drawing Machine Operator Name Role Phone Quang Locke Unavailable [phone] Keith Craft MD Primary Care Provider [phone] Silvio Schulte MD Unavailable [phone] Werner Swift MD Unavailable Liz Capellan DO Primary Care Provider [phone] Yasmin Restrepo MD Unavailable Jose Do MD Unavailable Reason for Visit * Reason Comments Medication Refill Encounter Details Date Type Department Care Team (Late st Contact Info) Description 09/23/2023 Refill [facility] - Family Medicine [facility] #2 [place] [address] Keith Craft MD #1 [place] [address] Medication Refill Social History Tobacco Use Types Packs/Day Years Used Date Smoking Tobacco: Former Cigarettes 2 50 1 - 03/16/2018 Smokeless Tobacco: Never Comments:Still uses nictoine patches and gum Alcohol Use Standard Drinks/Week Comments No 0 (1 standard drink = 0.6 oz pur e alcohol) [facility] Utilities Answer Date Recorded In the [...] Total Score - Questions 1-9 0 08/2021 [facility] of Occupat ional Health - Occupational Stress [...] st Contact Info) Description 04/26/2025 1:30 PM MARKETING DESIGNER Office Visit [facility] Medical [facility] - Pulmonology & Sleep Medicine - [place] #2 [facility] [place] [address] Werner Swift MD #2 [place] [address] 05/31/2025 1:20 PM MARKETING DESIGNER Office Visit [facility] - Family Medicine - [place] #2 [place] [address] Liz Capellan, DO 2 [facility] [address] [place] [address] 06/02/2025 1:30 PM MARKETING DESIGNER Office Visit [facility] - Endocrinology - [place] #2 [facility] [place] [address] Yasmin Restrepo MD #[address] [place] [address] documented as of this encounter Goals Goal [...] Zones/Action plan education. I will notify my Baseball Inspector if my symptoms fall in the [...] 19 04/27/2024 04/27/2024 04/27/2024 2:19 PM MARKETING DESIGNER Respiratory Rule-Out 07/24/2024 07/24/2024 025 2:29 PM MARKETING DESIGNER COVID - 19 07/24/2024 07/24/2024 07/24/2024 2:29 PM MARKETING DESIGNER COVID - 19 08/22/2024 08/22/2024 08/22/2024 11:4 6 PM CDT COVID - 19 09/03/2024 09/03/2024 09/03/2024 12:4 7 PM CDT Assessment Noted Time PHQ-9 Depression Total Score: 1 03/07/20 21 10:29 AM CDT documented as of this encounter Care Teams Drawing Machine Operator Relationship Specialty Start Date End Date Keith Craft MD PCP - General Family Medicine 01/14/19 12/26/23 Liz Capellan DO 2 [facility] [address] [place] [address] PCP - General Family Medicine 12/27/23 Quang Locke DO Gastroenterology 01/18/16 [place] [address] [address] 05/25/21 Werner Swift MD #2 [facility] [place] [address] Consulting Physician Pulmonary Disease 01/30/22 Yasmin Restrepo MD #[address] [address] Consulting Physician Endocrinology 07/20/24 Jose Do MD #[address] [address] Consulting Physician Colon and Rectal Surgery 10/12/24 documented as of this encounter
--- OUTSIDE RECORDS SUMMARY | 2025-03-23 14:57 | XMS_ITS | Encounter Summary ---
Author Organization [facility] Address [address] [place] [address] Phone Care Team Providers Care Aquatic Scientist Name Role Phone Quang Locke Unavailable [phone] Keith Craft MD Primary Care Provider [phone] Bri Rollins RN Unavailable Unavailable Silvio Schulte MD Unavailable [phone] Bri Rollins RN Unavailable Unavailable Werner Swift MD Unavailable Liz Capellan DO Primary Care Provider [phone] Yasmin Restrepo MD Unavailable Jose Do MD Unavailable Reason for Visit * Reason Onset Date Comments Medication Refill 08/24/2020 Encounter Details Date Type Department Care Team (Late st Contact Info) Description 08/24/2020 Refill [facility] [address] [place] [address] Keith Craft MD #1 [place] [address] Medication Refill Social History Tobacco [...] COVID-19? No / Unsure 07/30/2020 3:25 PM STUDENT AMBASSADOR documented as of this encounter Miscellaneous Notes * Telephone Encounter - Keerthi Kline RN - 08/24/2020 8:49 AM CDT Medication failed the protocol, provider to review and approve the medication order if appropriate. Requested Prescriptions Pending Prescriptions Disp Refills UltiCare Mini Pen [place] 31G X 6 MM Misc 300 Each [...] st Contact Info) Description 04/26/2025 1:30 PM STUDENT AMBASSADOR Office Visit [facility] - Pulmonology & Sleep Medicine - [place] #2 [facility] [address] Werner Swift MD #2 [place] [address] 05/31/2025 1:20 PM STUDENT AMBASSADOR Office Visit [facility] Medical [facility] - Family Medicine - [place] #2 [place] [address] Liz Capellan, DO [address] [id number] 06/02/2025 1:30 PM STUDENT AMBASSADOR Office Visit [facility] - Endocrinology - [place] #2 [place] [phone] Yasmin Restrepo MD #[address] [place] [address] documented as of this encounter Visit Diagnoses [...] - 19 07/23/2021 07/23/2021 07/24/2021 6:31 AM STUDENT AMBASSADOR COVID - 19 10/19/2021 10/19/2021 10/20/2021 7:45 AM CDT Respiratory Rule Out - RPA 10/19/2021 10/19/2021 0 10/20/2021 2:10 PM CDT Stenotrophomonas maltophilia Comment:Must have a follow up respiratory sample to remove isolation/infection flag. 10/20/2021 10/20/2021 COVID - 19 04/20/2022 04/20/2022 04/30/2022 12:1 8 AM STUDENT AMBASSADOR COVID - 19 07/18/2022 07/18/2022 07/28/2022 12:1 6 AM STUDENT AMBASSADOR COVID - 19 08/21/2022 08/21/2022 08/22/2022 8:31 AM CDT Respiratory Rule Out - RPA 08/21/2022 08/21/2022 0 08/22/2022 3:21 PM CDT COVID - 19 04/18/2023 04/18/2023 04/28/2023 12:1 6 AM STUDENT AMBASSADOR COVID - 19 07/13/2023 07/13/2023 07/23/2023 12:1 6 AM STUDENT AMBASSADOR Respiratory Rule Out - RPA 03/17/2024 03/17/2024 1 3:36 PM CDT COVID - 19 04/27/2024 04/27/2024 04/27/2024 2:19 PM STUDENT AMBASSADOR Respiratory Rule-Out 07/24/2024 07/24/2024 025 2:29 PM STUDENT AMBASSADOR COVID - 19 07/24/2024 07/24/2024 07/24/2024 2:29 PM STUDENT AMBASSADOR COVID - 19 08/22/2024 08/22/2024 08/22/2024 11:4 6 PM CDT COVID - 19 09/03/2024 09/03/2024 09/03/2024 12:4 7 PM CDT Assessment Noted Time PHQ-9 Depression Total Score: 2 06/07/19 21 2:34 PM STUDENT AMBASSADOR documented as of this encounter Care Teams Aquatic Scientist Relationship Specialty Start Date End Date Keith Craft MD PCP - General Family Medicine 01/14/19 12/26/23 Liz Capellan DO 2 [facility] [address] [address] PCP - General Family Medicine 12/27/23 Quang Locke DO Gastroenterology 01/18/16 Bri Rollins, RN [place] Operations Supervisor 2Nd Shift 03/07/21 05/22/23 [place] [address] [address] 05/25/21 Bri Rollins RN [place] Nurse Operations Supervisor 2Nd Shift 03/07/21 05/23/23 Werner Swift MD #2 [place] [address] Consulting Physician Pulmonary Disease 01/30/22 Yasmin Restrepo MD #[address] [address] Consulting Physician Endocrinology 07/20/24 Jose Do MD #[address] [id number] Consulting Physician Colon and Rectal Surgery 10/12/24 documented as of this encounter
--- OUTSIDE RECORDS SUMMARY | 2025-03-23 14:57 | XMS_ITS | Encounter Summary ---
Author Organization [facility] Address [address] [place] [address] Phone Care Team Providers Care Senior Ruby Developer Name Role Phone Quang Locke Unavailable [phone] Keith Craft MD Primary Care Provider [phone] Bri Rollins RN Unavailable Unavailable Silvio Schulte MD Unavailable [phone] Bri Rollins RN Unavailable Unavailable Werner Swift MD Unavailable Liz Capellan DO Primary Care Provider [phone] Yasmin Restrepo MD Unavailable Jose Do MD Unavailable Reason for Visit * Reason Comments Medication Refill Encounter Details Date Type Department Care Team (Late st Contact Info) Description 02/04/2021 Refill [facility] - Family Medicine [facility] #2 [place] [address] Keith Craft MD #1 [place] [address] Medication Refill Social History Tobacco [...] [place] 04/25/20 Office Visit Keith [facility] MD [facility] [place] Showing recent visits within past 365 days and meeting all other requirements Future Appointments Date Type Provider Dept 02/07/21 Appointment Keith Craft MD [facility] [place] 04/14/21 Appointment Keith Craft MD [facility] Showing future appointments within next 90 days and meeting all other requirements Passed - Active short-acting beta agonist prescription documented in this encounter Plan of Treatment Upcoming Encounters Date Type Department Care Team (Late st Contact Info) Description 04/26/2025 1:30 PM CUSTOMER SERVICE RECEPTIONIST Office Visit [facility] - Pulmonology & Sleep Medicine - [place] #2 [facility] [address] Werner Swift MD #2 [facility] [place] [address] 05/31/2025 1:20 PM CUSTOMER SERVICE RECEPTIONIST Office Visit [facility] Medical [facility] - Family Medicine - [place] #2 [place] [address] Liz Capellan, DO [address] [address] 06/02/2025 1:30 PM CUSTOMER SERVICE RECEPTIONIST Office Visit [facility] - Endocrinology - [place] #2 [place] [address] Yasmin Restrepo MD #[address] [place] [address] documented as of this encounter Visit Diagnoses Diagnosis Pulmonary emphysema, unspecified emphysema type documented in this encounter Additional Health Concerns Infection Onset Date Last Indicated Resolved Time COVID - 19 07/23/2021 07/23/2021 07/24/2021 6:31 AM CUSTOMER SERVICE RECEPTIONIST COVID - 19 10/19/2021 10/19/2021 10/20/2021 7:45 AM CDT Respiratory Rule Out - RPA 10/19/2021 10/19/2021 0 10/20/2021 2:10 PM CDT Stenotrophomonas maltophilia Comment:Must have a follow up respiratory sample to remove isolation/infection flag. 10/20/2021 10/20/2021 COVID - 19 04/20/2022 04/20/2022 04/30/2022 12:1 8 AM CUSTOMER SERVICE RECEPTIONIST COVID - 19 07/18/2022 07/18/2022 07/28/2022 12:1 6 AM CUSTOMER SERVICE RECEPTIONIST COVID - 19 08/21/2022 08/21/2022 08/22/2022 8:31 AM CDT Respiratory Rule Out - RPA 08/21/2022 08/21/2022 0 08/22/2022 3:21 PM CDT COVID - 19 04/18/2023 04/18/2023 04/28/2023 12:1 6 AM CUSTOMER SERVICE RECEPTIONIST COVID - 19 07/13/2023 07/13/2023 07/23/2023 12:1 6 AM CUSTOMER SERVICE RECEPTIONIST Respiratory Rule Out - RPA 03/17/2024 03/17/2024 1 3:36 PM CDT COVID - 19 04/27/2024 04/27/2024 04/27/2024 2:19 PM CUSTOMER SERVICE RECEPTIONIST Respiratory Rule-Out 07/24/2024 07/24/2024 025 2:29 PM CUSTOMER SERVICE RECEPTIONIST COVID - 19 07/24/2024 07/24/2024 07/24/2024 2:29 PM CUSTOMER SERVICE RECEPTIONIST COVID - 19 08/22/2024 08/22/2024 08/22/2024 11:4 6 PM CDT COVID - 19 09/03/2024 09/03/2024 09/03/2024 12:4 7 PM CDT Assessment Noted Time PHQ-9 Depression Total Score: 0 02/04/20 21 11:12 AM CDT documented as of this encounter Care Teams Senior Ruby Developer Relationship Specialty Start Date End Date Keith Craft MD PCP - General Family Medicine 01/14/19 12/26/23 Liz Capellan DO [address] [facility] [address] [place] [address] PCP - General Family Medicine 12/27/23 Quang Locke DO Gastroenterology 01/18/16 Bri Rollins, KATEY [place] Coffee Brewer 03/07/21 05/22/23 [place] [address] [address] 05/25/21 Bri Rollins RN [place] Nurse Coffee Brewer 03/07/21 05/23/23 Werner Swift MD #[address] [place] [address] Consulting Physician Pulmonary Disease 01/30/22 Yasmin Restrepo MD [address] [address] Consulting Physician Endocrinology 07/20/24 Jose Do MD [address] [address] Consulting Physician Colon and Rectal Surgery 10/12/24 documented as of this encounter
--- OUTSIDE RECORDS SUMMARY | 2025-03-23 14:57 | XMS_ITS | Clinical Summary ---
Author Organization [facility] Address [address] [place] [address] Care Team Providers Care Detective Name Role Phone Keith Craft MD Primary Care Provider [phone] Luis F Frausto MD Unavailable [phone] Allergies Active Allergy Reactions Criticality Noted [...] (08/23/2021): Added automatically from request for surgery [id number] Influenza A 06/16/2017 Cardiomyopathy 06/16/2017 Septicemia 06/16/2017 [...] Comm ents: EMELIA 08/09/2016 - Diabetes mellitus Diabetes melli tukrysta; Comments: EMELIA 08/09/2016 - Depression Depression Hx Other Medical Gastric Reflux; Comments: EMELIA 08/09/2016 - COPD (chronic obstructive pu lmonary disease) GERD (gastroesophageal reflux disease) Type 2 diabetes mellitus PONV (postoperative nausea and vomiting) PVC (premature ventricular contraction) Hyperlipidemia CHF (congestive heart failure) (HCC) Emphysema of lung Hypothyroidism Arthritis Fatty liver Chronic kidney disease [...] on file Legal Sex Female 5:46 PM MARKETING TECHNOLOGY COORDINATOR Gender Identity Not on file Sexual Orientation [...] 02/24/2020 02/23/2010 Fall Risk Assessment 09/13/2022 09/13/2021 Lung Cancer Screening 02/16/2024 02/15/2023, 022 Osteoporosis Screening-Bone Density Scan 04/03/2024 04/03/2022, 04/03/2022 Covid-19 Vaccine ( 2024- 6 season) 2025 09/07/2021, 03/22/2021, 07/30/2020, Additional history exists Influenza Vaccine (#1) 2025 , 03/10/2023, 01/18/2021, Additional history exists Colon Cancer Screening-CT Colonography Discontinued 02/23/2010 Colon Cancer Screening-DNA Stool Discontinued 02/24/20 10 Colon Cancer Screening-FIT Discontinued 02/23/2010 Colon Cancer Screening-Sigmoidoscopy Discontinued 02/23/2010 Zoster Vaccine Completed 02/03/2019, 02/19/2018 Pneumococcal vaccine 65+ Completed 019, 02/20/2018, 11/24/2014 Breast Cancer Screening-Mammogram Discontinued 02/26/2023, 02/26/2023, 11/28/2021, Additional history exists Medical Devices Implanted Type Area Safe Expert Device Identifier Shelf Expiration Date Model / [...] by: Mya William M.D. Silvio Schulte MD [facility] [place]ED[place] Final Result * COLONOSCOPY (02/23/2010 12:00 AM CDT) Anatomical Region Laterality Modality Other Narrative 02/23/2010 12:00 AM CDT Ordered by an unspecified provider. Procedure Note Provider, MD Karla - 02/23/2010 12:00 AM CDT PROCEDURE REPORT Patient: KARY CORONADO Account: [id number] Room No: : 1950 Patient Type: OPA Attend.: Jass Huang M.D. Admit Date: 02/23/2010 Dict.: Jass Huang M.D. Disch. Date: NAME OF PROCEDURE: Colonoscopy. HISTORY OF PRESENT ILLNESS This is a 59-year-old female who presents for screening colonoscopy. PHYSICAL EXAMINATION Well developed female. Lungs are clear. Cardiovascular exam isunremarkable. PROCEDURE: Colonoscopy was performed with the Movebubble video endoscope. The patientwas premedicated by anesthesia. [...] Recently Relevant to Health Maintenance Insurance MEDICARE [facility] [place] [address] [facility] [facility] [place] Advance Directives For more information, please contact: [phone] * Full Code (Latest Code Status on File) Date Activated Date Inactivated Comments 05/17/2017 9:28 PM 05/21/2017 8:00 PM Care Teams Detective Relationship Specialty Start Date End Date Keith Craft MD [address] [place] [address] [address] PCP - General 02/05/21 Luis F Frausto MD [address] [place] [address] [address] Consulting Physician Interventional Cardiology 09/13/21
--- OUTSIDE RECORDS SUMMARY | 2025-03-23 14:57 | XMS_ITS | Encounter Summary ---
Author Organization [facility] Address [address] [place] [address] Phone Care Team Providers Care Vice President Of Customer Service Name Role Phone Quang Locke Unavailable [phone] Keith Craft MD Primary Care Provider [phone] Silvio Schulte MD Unavailable [phone] Werner Swift MD Unavailable Liz Capellan DO Primary Care Provider [phone] Yasmin Restrepo MD Unavailable Jose Do MD Unavailable Reason for Visit * Reason Comments Medication Refill Encounter Details Date Type Department Care Team (Late st Contact Info) Description 09/25/2023 [facility]ill [facility] #2 [place] [address] Keith Craft MD #1 [place] [address] Medication Refill Social History Tobacco Use Types [...] Total Score - Questions 1-9 0 08/2021 [facility] [place] of Occupat ional Health - Occupational Stress [...] Contact Info) Description 04/26/2025 1:30 PM METAL POLISHER Office Visit [facility] - Pulmonology & Sleep Medicine - [place] [address] [place] [address] Werner Swift MD #2 [place] [address] 05/31/2025 1:20 PM METAL POLISHER Office Visit [facility] Family Medicine - [place] #2 [facility] [place] [address] Liz Capellan, DO 2 [facility] [address] [place] [address] 06/02/2025 1:30 PM METAL POLISHER Office Visit [facility] Endocrinology - [place] [address] [place] [address] Yasmin Restrepo MD #[address] [address] documented as of this encounter Goals Goal [...] Zones/Action plan education. I will notify my Cognos Report Developer if my symptoms fall in the [...] 19 04/27/2024 04/27/2024 04/27/2024 2:19 PM METAL POLISHER Respiratory Rule-Out 07/24/2024 07/24/2024 025 2:29 PM METAL POLISHER COVID - 19 07/24/2024 07/24/2024 07/24/2024 2:29 PM METAL POLISHER COVID - 19 08/22/2024 08/22/2024 08/22/2024 11:4 6 PM CDT COVID - 19 09/03/2024 09/03/2024 09/03/2024 12:4 7 PM CDT Assessment Noted Time PHQ-9 Depression Total Score: 1 03/07/20 21 10:29 AM CDT documented as of this encounter Care Teams Vice President Of Customer Service Relationship Specialty Start Date End Date Keith Craft MD PCP - General Family Medicine 01/14/19 12/26/23 Liz Capellan DO [address] [address] PCP - General Family Medicine 12/27/23 Quang Locke DO Gastroenterology 01/18/16 [place] [address] [address] 05/25/21 Werner Swift MD #2 [place] [address] Consulting Physician Pulmonary Disease 01/30/22 Yasmin Restrepo MD #[address] [address] Consulting Physician Endocrinology 07/20/24 Jose Do MD #[address] [address] Consulting Physician Colon and Rectal Surgery 10/12/24 documented as of this encounter
--- OUTSIDE RECORDS SUMMARY | 2025-03-23 14:57 | XMS_ITS | Encounter Summary ---
Author Organization [facility] Address [address] [place] [address] Phone Care Team Providers Care Supervisor Endless Track Vehicle Name Role Phone Quang Locke Unavailable [phone] Keith Craft MD Primary Care Provider [phone] Bri Rollins RN Unavailable Unavailable Silvio Schulte MD Unavailable [phone] Bri Rollins RN Unavailable Unavailable Werner Siwft MD Unavailable Liz Capellan DO Primary Care Provider [phone] Yasmin Restrepo MD Unavailable Jose Do MD Unavailable Reason for Visit * Reason Comments Medication Refill Encounter Details Date Type Department Care Team (Late st Contact Info) Description 10/01/2022 Refill [facility] - Family Medicine [facility] #2 [place] [address] Keith Craft MD #1 [place] [address] Medication Refill Social History Tobacco [...] RN - 10/01/2022 4:12 PM CDT PDMP Sunray 09/03/22 - Diazepam 09/03/22 Medication failed the [...] Dept 09/10/22 Office Visit Keith Craft MD [facility] 07/18/22 Office Visit Kerri Kauffman, TEST ENGINE MECHANIC, GENERAL MANAGER ORACLE DATA CLOUD [facility] 06/07/22 Office Visit Keith Craft MD [facility] 03/02/22 Procedure Visit [facility] 03/02/22 Office Visit Keith Craft MD [...] [facility] 07/18/22 Office Visit Kerri Kauffman, TEST ENGINE MECHANIC, GENERAL MANAGER ORACLE DATA CLOUD [facility] 06/07/22 Office Visit Keith Craft MD [facility] 03/02/22 Procedure Visit [facility]22 Office Visit Keith Craft MD [facility] 11/03/21 Office Visit Keith Craft MD [facility] 10/19/21 Office Visit Keith Craft MD [facility] 10/05/21 Office Visit Keith Craft MD [facility] Showing recent visits within past 365 [...] [facility] 07/18/22 Office Visit Kerri Kauffman, TEST ENGINE MECHANIC, GENERAL MANAGER ORACLE DATA CLOUD [facility] 06/07/22 Office Visit Keith Craft, [facility] 03/02/22 Procedure Visit [facility] 03/02/22 Office Visit Keith Craft, [facility] 11/03/21 Office Visit Keith Craft, [facility] 10/19/21 Office Visit Keith Craft, [facility] 10/05/21 Office Visit Keith Craft, [facility] Showing recent visits within [...] [facility] 07/18/22 Office Visit Kerri Kauffman, TEST ENGINE MECHANIC, GENERAL MANAGER ORACLE DATA CLOUD [facility] 06/07/22 Office Visit Keith Craft MD [facility] 03/02/22 Procedure Visit [facility] [place] 03/02/22 Office Visit Keith Craft MD [facility] 11/03/21 Office Visit Keith Craft MD [facility] 10/19/21 Office Visit Keith Craft MD [facility] 10/05/21 Office Visit Keith Craft MD [facility] Showing recent visits within past 365 days and meeting all other requirements Future Appointments Date Type Provider Dept 12/10/22 Appointment Keith Craft MD [facility] Showing future appointments within next 90 days and meeting all other requirements documented in this encounter Plan of Treatment Upcoming Encounters Date Type Department Care Team (Late st Contact Info) Description 04/26/2025 1:30 PM SENIOR SERVICE TECHNICIAN Office Visit [facility] - Pulmonology & Sleep Medicine - [place] #2 [place] [address] Werner Swift MD #2 [place] [address] 05/31/2025 1:20 PM SENIOR SERVICE TECHNICIAN Office Visit [facility] Medical [facility] - Family Medicine - [place] #2 [place] [address] Liz Capellan, DO 2 [facility] [address] [place] [address] 06/02/2025 1:30 PM SENIOR SERVICE TECHNICIAN Office Visit [facility] - Endocrinology - [place] #2 [place] [address] Yasmin Restrepo MD #[address] [place] [address] documented as of this encounter Goals Goal [...] plan education. I will notify my Supervisor Capacitor Processing if my symptoms fall in the y [...] 04/18/2023 04/18/2023 04/28/2023 12:1 6 AM SENIOR SERVICE TECHNICIAN COVID - 19 07/13/2023 07/13/2023 07/23/2023 12:1 6 AM SENIOR SERVICE TECHNICIAN Respiratory Rule Out - RPA 03/17/2024 03/17/2024 1 3:36 PM CDT COVID - 19 04/27/2024 04/27/2024 04/27/2024 2:19 PM SENIOR SERVICE TECHNICIAN Respiratory Rule-Out 07/24/2024 07/24/2024 025 2:29 PM SENIOR SERVICE TECHNICIAN COVID - 19 07/24/2024 07/24/2024 07/24/2024 2:29 PM SENIOR SERVICE TECHNICIAN COVID - 19 08/22/2024 08/22/2024 08/22/2024 11:4 6 PM CDT COVID - 19 09/03/2024 09/03/202409/0309/03/2024 12:4 7 PM CDT Assessment Noted Time PHQ-9 Depression Total Score: 1 03/07/20 21 10:29 AM CDT documented as of this encounter Care Teams Supervisor Endless Track Vehicle Relationship Specialty Start Date End Date Keith Craft MD PCP - General Family Medicine 01/14/19 12/26/23 Liz Capellan DO 2 [facility] [address] [place] [address] PCP - General Family Medicine 12/27/23 Quang Locke DO Gastroenterology 01/18/16 Bri Rollins RN [place] Supervisor [employer] 03/07/21 05/22/23 [place] [address] [address] 05/25/21 Bri Rollins, [place]ATE[place] Nurse Supervisor [employer] 03/07/21 05/23/23 Werner Swift MD #2 [place] [address] Consulting Physician Pulmonary Disease 01/30/22 Yasmin Restrepo MD #[address] [address] Consulting Physician Endocrinology 07/20/24 Jose Do MD #[address] [address] Consulting Physician Colon and Rectal Surgery 10/12/24 documented as of this encounter
--- OUTSIDE RECORDS SUMMARY | 2025-03-23 14:57 | XMS_ITS | Encounter Summary ---
Author Organization [facility] Address [address] [place] [address] Phone Care Team Providers Care Starting Gate Driver Name Role Phone Quang Locke Unavailable [phone] Keith Craft MD Primary Care Provider [phone] Bri Rollins RN Unavailable Unavailable Silvio Schulte MD Unavailable [phone] Bri Rollins RN Unavailable Unavailable Werner Swift MD Unavailable Liz Capellan DO Primary Care Provider [phone] Yasmin Restrepo MD Unavailable Jose Do MD Unavailable Reason for Visit * Reason Comments Medication Refill Encounter Details Date Type Department Care Team (Late st Contact Info) Description 02/08/2021 Refill [facility] - Family Medicine [facility] #2 [place] [address] Keith Craft MD #1 [place] [address] Medication Refill Social History Tobacco [...] st Contact Info) Description 04/26/2025 1:30 PM TENNIS COACH Office Visit [facility] Medical [facility] - Pulmonology & Sleep Medicine [facility] #2 [place] [address] Werner Swift MD #2 [place] [address] 05/31/2025 1:20 PM TENNIS COACH Office Visit [facility] - Family Medicine [facility] [address] [place] [address] Liz Capellan, DO 2 [email or web address] [address] [facility] [address] [place] [address] 06/02/2025 1:30 PM TENNIS COACH Office Visit [facility] - Endocrinology - [place] #2 [place] [address] Yasmin Restrepo MD [address] [address] documented as of this encounter Visit Diagnoses Diagnosis Anxiety and depression Dysthymic disorder documented in this encounter Additional Health Concerns Infection Onset Date Last Indicated Resolved Time COVID - 19 07/23/2021 07/23/2021 07/24/2021 6:31 AM TENNIS COACH COVID - 19 10/19/2021 10/19/2021 10/20/2021 7:45 AM CDT Respiratory Rule Out - RPA 10/19/2021 10/19/2021 0 10/20/2021 2:10 PM CDT Stenotrophomonas maltophilia Comment:Must have a follow up respiratory sample to remove isolation/infection flag. 10/20/2021 10/20/2021 COVID - 19 04/20/2022 04/20/2022 04/30/2022 12:1 8 AM TENNIS COACH COVID - 19 07/18/2022 07/18/2022 07/28/2022 12:1 6 AM TENNIS COACH COVID - 19 08/21/2022 08/21/2022 08/22/2022 8:31 AM CDT Respiratory Rule Out - RPA 08/21/2022 08/21/2022 0 08/22/2022 3:21 PM CDT COVID - 19 04/18/2023 04/18/2023 04/28/2023 12:1 6 AM TENNIS COACH COVID - 19 07/13/2023 07/13/2023 07/23/2023 12:1 6 AM TENNIS COACH Respiratory Rule Out - RPA 03/17/2024 03/17/2024 1 3:36 PM CDT COVID - 19 04/27/2024 04/27/2024 04/27/2024 2:19 PM TENNIS COACH Respiratory Rule-Out 07/24/2024 07/24/2024 025 2:29 PM TENNIS COACH COVID - 19 07/24/2024 07/24/2024 07/24/2024 2:29 PM TENNIS COACH COVID - 19 08/22/2024 08/22/2024 08/22/2024 11:4 6 PM CDT COVID - 19 09/03/2024 09/03/2024 09/03/2024 12:4 7 PM CDT Assessment Noted Time PHQ-9 Depression Total Score: 0 02/04/20 11:12 AM CDT documented as of this encounter Care Teams Starting Gate Driver Relationship Specialty Start Date End Date Keith Craft MD PCP - General Family Medicine 01/14/19 12/26/23 Liz Capellan DO [address] [address] PCP - General Family Medicine 12/27/23 Quang Locke DO Gastroenterology 01/18/16 Bri Rollins RN [place] [employer]iller [employer] Bro[employer] 03/07/21 05/22/23 [place] [address] [address] 05/25/21 Bri Rollins RN [place] Nurse Driller [employer] Broacher 03/07/21 05/23/23 Werner Swift MD #2 [place] [address] Consulting Physician Pulmonary Disease 01/30/22 Yasmin Restrepo MD #[address] [address] Consulting Physician Endocrinology 07/20/24 Jose Do MD #[address] [address] Consulting Physician Colon and Rectal Surgery 10/12/24 documented as of this encounter
--- OUTSIDE RECORDS SUMMARY | 2025-03-23 14:57 | XMS_ITS | Encounter Summary ---
Author Organization [facility] Address [address] [place] [address] Phone Care Team Providers Care Talent Development Manager Name Role Phone Quang Locke Unavailable [phone] Keith Craft MD Primary Care Provider [phone] Bri Rollins RN Unavailable Unavailable Silvio Schulte MD Unavailable [phone] Bri Rollins RN Unavailable Unavailable Werner Swift MD Unavailable Liz Capellan DO Primary Care Provider [phone] Yasmin Restrepo MD Unavailable Jose Do MD Unavailable Reason for Visit * Reason Comments Medication Refill Encounter Details Date Type Department Care Team (Late st Contact Info) Description 02/12/2021 Refill [facility] Medicine [facility] #2 [place] [address] Keith Craft MD #1 [place] [address] Medication Refill Social History Tobacco [...] st Contact Info) Description 04/26/2025 1:30 PM BROACH SETTER Office Visit [facility] - Pulmonology & Sleep Medicine [facility] #2 [place] [address] Werner Swift MD #2 [place] [address] 05/31/2025 1:20 PM BROACH SETTER Office Visit [facility] - Family Medicine - [place] #2 [place] [address] Liz Capellan, DO [address] [address] 06/02/2025 1:30 PM BROACH SETTER Office Visit [facility] - Endocrinology - [place] #2 [place] [address] Yasmin Restrepo MD #[address] [address] documented as of this encounter Visit Diagnoses Diagnosis Anxiety and depression Dysthymic disorder documented in this encounter Additional Health Concerns Infection Onset Date Last Indicated Resolved Time COVID - 19 07/23/2021 07/23/2021 07/24/2021 6:31 AM BROACH SETTER COVID - 19 10/19/2021 10/19/2021 10/20/2021 7:45 AM CDT Respiratory Rule Out - RPA 10/19/2021 10/19/2021 0 10/20/2021 2:10 PM CDT Stenotrophomonas maltophilia Comment:Must have a follow up respiratory sample to remove isolation/infection flag. 10/20/2021 10/20/2021 COVID - 19 04/20/2022 04/20/2022 04/30/2022 12:1 8 AM BROACH SETTER COVID - 19 07/18/2022 07/18/2022 07/28/2022 12:1 6 AM BROACH SETTER COVID - 19 08/21/2022 08/21/2022 08/22/2022 8:31 AM CDT Respiratory Rule Out - RPA 08/21/2022 08/21/2022 0 08/22/2022 3:21 PM CDT COVID - 19 04/18/2023 04/18/2023 04/28/2023 12:1 6 AM BROACH SETTER COVID - 19 07/13/2023 07/13/2023 07/23/2023 12:1 6 AM BROACH SETTER Respiratory Rule Out - RPA 03/17/2024 03/17/2024 1 3:36 PM CDT COVID - 19 04/27/2024 04/27/2024 04/27/2024 2:19 PM BROACH SETTER Respiratory Rule-Out 07/24/2024 07/24/2024 025 2:29 PM BROACH SETTER COVID - 19 07/24/2024 07/24/2024 07/24/2024 2:29 PM BROACH SETTER COVID - 19 08/22/2024 08/22/2024 08/22/2024 11:4 6 PM CDT COVID - 19 09/03/2024 09/03/2024 09/03/2024 12:4 7 PM CDT Assessment Noted Time PHQ-9 Depression Total Score: 0 02/04/20 11:12 AM CDT documented as of this encounter Care Teams Talent Development Manager Relationship Specialty Start Date End Date Keith Craft MD PCP - General Family Medicine 01/14/19 12/26/23 Liz Capellan DO 2 [facility] [address] [place] [address] PCP - General Family Medicine 12/27/23 Quang Locke DO Gastroenterology 01/18/16 Bri Rollins RN [place] Armature Bander 03/07/21 05/22/23 [place] [address] [address] 05/25/21 Bri Rollins, RN [place] Nurse Armature Bander 03/07/21 05/23/23 Werner Swift MD #2 [place] [address] Consulting Physician Pulmonary Disease 01/30/22 Yasmin Restrepo MD #[address] [address] Consulting Physician Endocrinology 07/20/24 Jose Do MD #[address] [address] Consulting Physician Colon and Rectal Surgery 10/12/24 documented as of this encounter
--- OUTSIDE RECORDS SUMMARY | 2025-03-23 14:57 | XMS_ITS | Encounter Summary ---
Author Organization [facility] Address [address] [place] [address] Phone Care Team Providers Care Automobile Rental Representative Name Role Phone Quang Locke Unavailable [phone] Keith Craft MD Primary Care Provider [phone] Silvio Schulte MD Unavailable [phone] Werner Swift MD Unavailable Liz Capellan DO Primary Care Provider [phone] Yasmin Restrepo MD Unavailable Jose Do MD Unavailable Reason for Visit * Reason Onset Date Comments Cough 09/23/2023 Encounter Details Date Type Department Care Team (Late st Contact Info) Description 09/23/2023 Nurse Triage [facility] - Family Medicine [facility] #2 [place] [address] Keith Craft MD #1 [place], [place] [id number] Cough Social History Tobacco Use Types Packs/Day Years Used Date Smoking Tobacco: Former Cigarettes 2 50 1 - 03/16/2018 Smokeless Tobacco: Never Comments:Still uses nictoine patches and gum Alcohol Use Standard Drinks/Week Comments No 0 (1 standard drink = 0.6 oz pur e alcohol) [facility] Utilities Answer Date Recorded In the past [...] Total Score - Questions 1-9 0 08/2021 [facility] [employer] of Occupat ional Health - Occupational Stress [...] st Contact Info) Description 04/26/2025 1:30 PM LOOPING MACHINE OPERATOR Office Visit [facility] - Pulmonology & Sleep Medicine - [place] #2 [place] [address] Werner Swift MD #2 [place] [address] 05/31/2025 1:20 PM LOOPING MACHINE OPERATOR Office Visit [facility] Medical [facility] - Family Medicine - [place] #2 [place] [address] Liz Capellan, DO 2 [facility]. [address] [place] [address] 06/02/2025 1:30 PM LOOPING MACHINE OPERATOR Office Visit [facility] - Endocrinology - [place] #2 [place] [address] Yasmin Restrepo MD #[address] [address] documented as of this encounter Goals Goal [...] Zones/Action plan education. I will notify my Records Administrator if my symptoms fall in the [...] - 19 04/27/2024 04/27/2024 04/27/2024 2:19 PM LOOPING MACHINE OPERATOR Respiratory Rule-Out 07/24/2024 07/24/2024 025 2:29 PM LOOPING MACHINE OPERATOR COVID - 19 07/24/2024 07/24/2024 07/24/2024 2:29 PM LOOPING MACHINE OPERATOR COVID - 19 08/22/2024 08/22/2024 08/22/2024 11:4 6 PM CDT COVID - 19 09/03/2024 09/03/2024 09/03/2024 12:4 7 PM CDT Assessment Noted Time PHQ-9 Depression Total Score: 1 03/07/20 21 10:29 AM CDT documented as of this encounter Care Teams Automobile Rental Representative Relationship Specialty Start Date End Date Keith Craft MD PCP - General Family Medicine 01/14/19 12/26/23 Liz Capellan DO [address] [address] PCP - General Family Medicine 12/27/23 Quang Locke DO Gastroenterology 01/18/16 [place] [address] [address] 05/25/21 Werner Swift MD #2 [place] [address] Consulting Physician Pulmonary Disease 01/30/22 Yasmin Restrepo MD #[address] [address] Consulting Physician Endocrinology 07/20/24 Jose Do MD #[address] [address] Consulting Physician Colon and Rectal Surgery 10/12/24 documented as of this encounter
--- OUTSIDE RECORDS SUMMARY | 2025-03-23 14:57 | XMS_ITS | Encounter Summary ---
Author Organization [facility] Address [address] [place] [address] Phone Care Team Providers Care Turn Laster Name Role Phone Quang Locke Unavailable [phone] Keith Craft MD Primary Care Provider [phone] Silvio Schulte MD Unavailable [phone] Werner Swift MD Unavailable Liz Capellan DO Primary Care Provider [phone] Yasmin Restrepo MD Unavailable Jose Do MD Unavailable Reason for Visit * Reason Comments Medication Refill Encounter Details Date Type Department Care Team (Late st Contact Info) Description 09/16/2023 Refill [facility] Medicine [facility] #2 [place] [address] Keith Craft MD #1 [place] [address] Medication Refill Social History Tobacco Use Types [...] often do you attend chur ch or druze services? Never 07/13/2023 Do you belong to [...] Questions 1-9 0 08/2021 [facility] [place] of Occupat ional Health - Occupational Stress [...] st Contact Info) Description 04/26/2025 1:30 PM CNA GNA Office Visit [facility] - Pulmonology & Sleep Medicine - [place] #2 [place] [address] Werner Swift MD #2 [place] [address] 05/31/2025 1:20 PM CNA GNA Office Visit [facility] - Family Medicine - [place] #2 [place] [address] Liz Capellan, DO 2 [facility] [address] [place] [address] 06/02/2025 1:30 PM CNA GNA Office Visit [facility] Endocrinology - [place] #2 [place] [address] Yasmin Restrepo MD #[address] [place] [address] documented as of this encounter Goals Goal [...] plan education. I will notify my Information Manager if my symptoms fall in the [...] - 19 04/27/2024 04/27/2024 04/27/2024 2:19 PM CNA GNA Respiratory Rule-Out 07/24/2024 07/24/2024 025 2:29 PM CNA GNA COVID - 19 07/24/2024 07/24/2024 07/24/2024 2:29 PM CNA GNA COVID - 19 08/22/2024 08/22/2024 08/22/2024 11:4 6 PM CDT COVID - 19 09/03/2024 09/03/2024 09/03/2024 12:4 7 PM CDT Assessment Noted Time PHQ-9 Depression Total Score: 1 03/07/20 21 10:29 AM CDT documented as of this encounter Care Teams Turn Laster Relationship Specialty Start Date End Date Keith Craft MD PCP - General Family Medicine 01/14/19 12/26/23 Liz Capellan DO 2 [facility] [address] [place] [address] PCP - General Family Medicine 12/27/23 Quang Locke DO Gastroenterology 01/18/16 [place] [address] [address] 05/25/21 Werner Swift MD #2 [place] [address] Consulting Physician Pulmonary Disease 01/30/22 Yasmin Restrepo MD #[address] [address] Consulting Physician Endocrinology 07/20/24 Jose Do MD #[address] [address] Consulting Physician Colon and Rectal Surgery 10/12/24 documented as of this encounter
--- OUTSIDE RECORDS SUMMARY | 2025-03-23 14:57 | XMS_ITS | Encounter Summary ---
Author Organization [facility] Address [address] [place] [address] Phone Care Team Providers Care Podiatric Foot And Ankle Specialist Name Role Phone Quang Locke Unavailable [phone] Keith Craft MD Primary Care Provider [phone] Bri Rollins RN Unavailable Unavailable Silvio Schulte MD Unavailable [phone] Bri Rollins RN Unavailable Unavailable Werner Swift MD Unavailable Liz Capellan DO Primary Care Provider [phone] Yasmin Restrepo MD Unavailable Jose Do MD Unavailable Reason for Visit * Reason Comments Medication Refill Encounter Details Date Type Department Care Team (Late st Contact Info) Description 08/30/2020 Refill [facility] #2 [place] [address] Keith Craft MD #1 [place] [address] Medication Refill Social History Tobacco [...] Outpatient Visits 2 months ago Mixed hyperlipidemia [facility] Keith Lemus MD 4 months ago Pneumonia of right upper lobe due to infectious organism [facility] Keith Lemus MD 7 months ago Acute non-recurrent maxillary sinusitis [facility] Keith Lemus MD 10 months ago Chronic prescription opiate use [facility] Keith Lemus MD 1 year ago 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 [facility] Keith Lemus MD Upcoming Appointments Future Appointments In 1 month eKith Craft MD [facility] YULIA Mckeon PROFESSOR OF SOCIAL WORK - Recent and Past Visits Recent Visits Date Type Provider Dept 06/07/20 Office Visit Keith Craft MD [facility] 04/25/20 Office Visit Keith Craft MD [facility] 02/02/20 Office Visit Keith Craft MD [facility] 11/02/19 Office Visit Keith Craft MD [facility] 07/27/19 Office Visit Keith Craft MD [facility] 06/10/19 Office Visit Brie Denis, [facility] Showing recent visits within past 460 days with a meds authorizing provider and meeting all other requirements Future Appointments Date Type Provider Dept 10/04/20 Appointment [facility] MD [facility] Showing future appointments within next 90 days with a meds authorizing provider and meeting all other requirements documented in this encounter Plan of Treatment Upcoming Encounters Date Type Department Care Team (Late st Contact Info) Description 04/26/2025 1:30 PM OCCUPATIONAL HEALTH NURSE MANAGER Office Visit [facility] Medical [facility] - Pulmonology & Sleep Medicine - [place] [address]2 [place] [address] Werner Swift MD #2 [facility] [place] [address] 05/31/2025 1:20 PM OCCUPATIONAL HEALTH NURSE MANAGER Office Visit [facility] Medical [facility] - Family Medicine - [place] #2 [place] [address] Liz Capellan, DO [address] [place] [address] 06/02/2025 1:30 PM OCCUPATIONAL HEALTH NURSE MANAGER Office Visit [facility] - Endocrinology - [place] #2 [place] [phone] Yasmin Restrepo MD #[address] [place] [phone] documented as of this encounter Visit Diagnoses Diagnosis Anxiety and depression Dysthymic disorder documented in this encounter Additional Health Concerns Infection Onset Date Last Indicated Resolved Time COVID - 19 01/25/2021 01/25/2021 01/31/2021 8:10 AM CDT Respiratory Rule Out - RPA 01/30/2021 01/30/2021 0 02/01/2021 12:45 AM CDT COVID - 19 07/23/2021 07/23/2021 07/24/2021 6:31 AM OCCUPATIONAL HEALTH NURSE MANAGER COVID - 19 10/19/2021 10/19/2021 10/20/2021 7:45 AM CDT Respiratory Rule Out - RPA 10/19/2021 10/19/2021 0 10/20/2021 2:10 PM CDT Stenotrophomonas maltophilia Comment:Must have a follow up respiratory sample to remove isolation/infection flag. 10/20/2021 10/20/2021 COVID - 19 04/20/2022 04/20/2022 04/30/2022 12:1 8 AM OCCUPATIONAL HEALTH NURSE MANAGER COVID - 19 07/18/2022 07/18/2022 07/28/2022 12:1 6 AM OCCUPATIONAL HEALTH NURSE MANAGER COVID - 19 08/21/2022 08/21/2022 08/22/2022 8:31 AM CDT Respiratory Rule Out - RPA 08/21/2022 08/21/2022 0 08/22/2022 3:21 PM CDT COVID - 19 04/18/2023 04/18/2023 04/28/2023 12:1 6 AM OCCUPATIONAL HEALTH NURSE MANAGER COVID - 19 07/13/2023 07/13/2023 07/23/2023 12:1 6 AM OCCUPATIONAL HEALTH NURSE MANAGER Respiratory Rule Out - RPA 03/17/2024 03/17/2024 1 3:36 PM CDT COVID - 19 04/27/2024 04/27/2024 04/27/2024 2:19 PM OCCUPATIONAL HEALTH NURSE MANAGER Respiratory Rule-Out 07/24/2024 07/24/2024 025 2:29 PM OCCUPATIONAL HEALTH NURSE MANAGER COVID - 19 07/24/2024 07/24/2024 07/24/2024 2:29 PM OCCUPATIONAL HEALTH NURSE MANAGER COVID - 19 08/22/2024 08/22/2024 08/22/2024 11:4 6 PM CDT COVID - 19 09/03/2024 09/03/2024 09/03/2024 12:4 7 PM CDT Assessment Noted Time PHQ-9 Depression Total Score: 2 06/07/19 21 2:34 PM OCCUPATIONAL HEALTH NURSE MANAGER documented as of this encounter Care Teams Podiatric Foot And Ankle Specialist Relationship Specialty Start Date End Date Keith Craft MD PCP - General Family Medicine 01/14/19 12/26/23 Liz Capellan DO [address] [address] PCP - General Family Medicine 12/27/23 Quang Locke DO Gastroenterology 01/18/16 Bri Rollins RN [place] Chaser Apprentice 03/07/21 05/22/23 [place] [id number] [address] 05/25/21 Bri Rollins RN [place] Nurse Chaser Apprentice 03/07/21 05/23/23 Werner Swift MD #2 [place] [address] Consulting Physician Pulmonary Disease 01/30/22 Yasmin Restrepo MD #[address] [address] Consulting Physician Endocrinology 07/20/24 Jose Do MD #[address] [facility] [address] [address] [address] Consulting Physician Colon and Rectal Surgery 10/12/24 documented as of this encounter
--- OUTSIDE RECORDS SUMMARY | 2025-03-23 14:57 | XMS_ITS | Encounter Summary ---
Author Organization [facility] Address [address] [place] [address] Phone Care Team Providers Care Utilities Manager Name Role Phone Quang Locke Unavailable [phone] Keith Craft MD Primary Care Provider [phone] Bri Rollins RN Unavailable Unavailable Silvio Schulte MD Unavailable [phone] Bri Rollins RN Unavailable Unavailable Werner Swift MD Unavailable Liz Capellan DO Primary Care Provider [phone] Yasmin Restrepo MD Unavailable Jose Do MD Unavailable Reason for Visit * Reason Comments Medication Refill Encounter Details Date Type Department Care Team (Late st Contact Info) Description 05/25/2022 Refill [facility] #2 [place] [address] Keith Craft MD #1 [place] [address] Medication Refill Social History Tobacco [...] Coronavirus/COVID-19? No / Unsure 05/01/2022 1:41 PM SERVICE DELIVERY MANAGEMENT CONSULTANT documented as of this encounter Miscellaneous [...] 03/02/22 Procedure Visit [facility] [place] 03/02/22 Office Visit Keith Craft MD [facility] 11/03/21 Office Visit Keith Craft MD [facility] 10/19/21 Office Visit Keith Craft MD [facility] [place] 10/05/21 Office Visit Keith Craft MD [facility] 09/08/21 Office Visit Brie Denis, [facility] 08/14/21 Office [facility] 07[facility]31[facility]21 Office Visit [facility] 05/25/21 Office Visit Marcin Anderson APRN, FISH FLIPPER [facility] Showing recent visits within past 365 days and meeting all other requirements Future Appointments Date Type Provider Dept 06/07/22 Appointment Keith Craft MD [facility] Showing future appointments within next 90 days and meeting all other requirements ICE DELIVERY MANAGEMENT CONSULTANT documented in this encounter Plan of Treatment Upcoming Encounters Date Type Department Care Team (Late st Contact Info) Description 04/26/2025 1:30 PM SERVICE DELIVERY MANAGEMENT CONSULTANT Office Visit [facility] Medical [facility] - Pulmonology & Sleep Medicine - [place] #2 [place] [address] Werner Swift MD #2 [place] [address] 05/31/2025 1:20 PM SERVICE DELIVERY MANAGEMENT CONSULTANT Office Visit [facility] Medical [facility] - Family Medicine - [place] #[address] [facility] [address] Liz Capellan, DO 2 [facility] [address] [place] [address] 06/02/2025 1:30 PM SERVICE DELIVERY MANAGEMENT CONSULTANT Office Visit [facility] Medical [facility] - Endocrinology - [place] #2 [place] [phone] Yasmin Restrepo MD #[address] [phone] documented as of this encounter Goals Goal [...] plan education. I will notify my User Experience Architect if my symptoms fall in the y [...] 19 07/18/2022 07/18/2022 07/28/2022 12:1 6 AM SERVICE DELIVERY MANAGEMENT CONSULTANT COVID - 19 08/21/2022 08/21/2022 08/22/2022 8:31 AM CDT Respiratory Rule Out - RPA 08/21/2022 08/21/2022 0 08/22/2022 3:21 PM CDT COVID - 19 04/18/2023 04/18/2023 04/28/2023 12:1 6 AM SERVICE DELIVERY MANAGEMENT CONSULTANT COVID - 19 07/13/2023 07/13/2023 07/23/2023 12:1 6 AM SERVICE DELIVERY MANAGEMENT CONSULTANT Respiratory Rule Out - RPA 03/17/2024 03/17/2024 1 3:36 PM CDT COVID - 19 04/27/2024 04/27/2024 04/27/2024 2:19 PM SERVICE DELIVERY MANAGEMENT CONSULTANT Respiratory Rule-Out 07/24/2024 07/24/2024 025 2:29 PM SERVICE DELIVERY MANAGEMENT CONSULTANT COVID - 19 07/24/2024 07/24/2024 07/24/2024 2:29 PM SERVICE DELIVERY MANAGEMENT CONSULTANT COVID - 19 08/22/2024 08/22/2024 08/22/2024 11:4 6 PM CDT COVID - 19 09/03/2024 09/03/2024 09/03/2024 12:4 7 PM CDT Assessment Noted Time PHQ-9 Depression Total Score: 1 03/07/20 10:29 AM CDT documented as of this encounter Care Teams Utilities Manager Relationship Specialty Start Date End Date Keith Craft MD PCP - General Family Medicine 01/14/19 12/26/23 Liz Capellan DO [address] [address] PCP - General Family Medicine 12/27/23 Quang Locke DO Gastroenterology 01/18/16 Bri Rollins RN [place] User Experience Architect 03/07/21 05/22/23 [place] [address] [address] 05/25/21 Bri Rollins RN [place] Nurse User Experience Architect 03/07/21 05/23/23 Werner Swift MD #2 [place] [address] Consulting Physician Pulmonary Disease 01/30/22 Yasmin Restrepo MD #[address] [address] Consulting Physician Endocrinology 07/20/24 Jose Do MD #[address] [address] Consulting Physician Colon and Rectal Surgery 10/12/24 documented as of this encounter
--- OUTSIDE RECORDS SUMMARY | 2025-03-23 14:57 | XMS_ITS | Encounter Summary ---
Author Organization [facility] Address [address] [place] [address] Phone Care Team Providers Care University Professor Name Role Phone Quang Locke Unavailable [phone] Keith Craft MD Primary Care Provider [phone] Bri Rollins RN Unavailable Unavailable Silvio Schulte MD Unavailable [phone] Bri Rollins RN Unavailable Unavailable Werner Swift MD Unavailable Liz Capellan DO Primary Care Provider [phone] Yasmin Restrepo MD Unavailable Jose Do MD Unavailable Reason for Visit * Reason Comments Medication Refill Encounter Details Date Type Department Care Team (Late st Contact Info) Description 02/05/2021 Refill [facility] #2 [place] [address] Keith Craft MD [address] [place] [address] Medication Refill Social History Tobacco [...] neuropathy, with long-term current use of insulin(HCC) [facility] Medical [facility] - Family Medicine - Brie Castano PAC 3 weeks ago Chronic low back pain, unspecified back pain laterality, unspecified whether sciatica present [facility] Family Medicine - Keith Jenkins MD 3 months ago Pneumonia of right upper lobe due to infectious organism [facility] Family Medicine - Keith Jenkins MD 4 months ago Hypoglycemia [facility] - Family Medicine Keith Lemus MD 8 months ago [facility] Upcoming Appointments Future Appointments Tomorrow Keith Craft MD [facility] In 2 months Keith Craft MD [facility] - Recent and Past Visits Recent Visits Date Type Provider Dept 02/03/21 Office Visit Brie Denis, [facility] 01/12/21 Office Visit Keith Craft, [facility] 10/12/20 Office Visit Keith Craft MD [facility] 10/04/20 Office Visit Keith Craft MD [facility] 06/07/20 Office Visit Keith Craft MD [facility] 04/25/20 Office Visit Keith Craft MD [facility] 02/02/20 Office Visit Keith Craft MD [facility] Showing recent visits within past 460 days with a meds authorizing provider and meeting all other requirements Future Appointments Date Type Provider Dept 02/07/21 Appointment Keith Craft MD [facility] 04/14/21 Appointment Keith Craft MD [facility] Showing future appointments within next 90 days with a meds authorizing provider and meeting all other requirements documented in this encounter Plan of Treatment Upcoming Encounters Date Type Department Care Team (Late st Contact Info) Description 04/26/2025 1:30 PM FINAL INSPECTOR PAPER Office Visit [facility] - Pulmonology & Sleep Medicine - [place] [address] [place] [address] Werner Swift MD [address] [place] [address] 05/31/2025 1:20 PM FINAL INSPECTOR PAPER Office Visit [facility] [place] [address] [place] [address] Liz Capellan, DO 2 [facility] [address] [place] [address] 06/02/2025 1:30 PM FINAL INSPECTOR PAPER Office Visit [facility] - Endocrinology - [place] [address] [place] [address] Yasmin Restrepo MD [address] [facility] [address] [place] [address] documented as of this encounter Visit Diagnoses Not on filedocumented in this encounter Additional Health Concerns Infection Onset Date Last Indicated Resolved Time COVID - 19 07/23/2021 07/23/2021 07/24/2021 6:31 AM FINAL INSPECTOR PAPER COVID - 19 10/19/2021 10/19/2021 10/20/2021 7:45 AM CDT Respiratory Rule Out - RPA 10/19/2021 10/19/2021 0 10/20/2021 2:10 PM CDT Stenotrophomonas maltophilia Comment:Must have a follow up respiratory sample to remove isolation/infection flag. 10/20/2021 10/20/2021 COVID - 19 04/20/2022 04/20/2022 04/30/2022 12:1 8 AM FINAL INSPECTOR PAPER COVID - 19 07/18/2022 07/18/2022 07/28/2022 12:1 6 AM FINAL INSPECTOR PAPER COVID - 19 08/21/2022 08/21/2022 08/22/2022 8:31 AM CDT Respiratory Rule Out - RPA 08/21/2022 08/21/2022 0 08/22/2022 3:21 PM CDT COVID - 19 04/18/2023 04/18/2023 04/28/2023 12:1 6 AM FINAL INSPECTOR PAPER COVID - 19 07/13/2023 07/13/2023 07/23/2023 12:1 6 AM FINAL INSPECTOR PAPER Respiratory Rule Out - RPA 03/17/2024 03/17/2024 1 3:36 PM CDT COVID - 19 04/27/2024 04/27/2024 04/27/2024 2:19 PM FINAL INSPECTOR PAPER Respiratory Rule-Out 07/24/2024 07/24/2024 025 2:29 PM FINAL INSPECTOR PAPER COVID - 19 07/24/2024 07/24/2024 07/24/2024 2:29 PM FINAL INSPECTOR PAPER COVID - 19 08/22/2024 08/22/2024 08/22/2024 11:4 6 PM CDT COVID - 19 09/03/2024 09/03/2024 09/03/2024 12:4 7 PM CDT Assessment Noted Time PHQ-9 Depression Total Score: 0 02/04/20 11:12 AM CDT documented as of this encounter Care Teams University Professor Relationship Specialty Start Date End Date Keith Craft MD PCP - General Family Medicine 01/14/19 12/26/23 Liz Capellan DO [address] [address] PCP - General Family Medicine 12/27/23 Quang Locke DO Gastroenterology 01/18/16 Bri Rollins RN [place] School Transportation Supervisor 03/07/21 05/22/23 [place] [id number] [address] 05/25/21 Bri Rollins RN [place] Nurse School Transportation Supervisor 03/07/21 05/23/23 Werner Swift MD #2 [place] [address] Consulting Physician Pulmonary Disease 01/30/22 Yasmin Restrepo MD #[address] [address] Consulting Physician Endocrinology 07/20/24 Jose Do MD #[address] [address] Consulting Physician Colon and Rectal Surgery 10/12/24 documented as of this encounter
--- OUTSIDE RECORDS SUMMARY | 2025-03-23 14:57 | XMS_ITS | Encounter Summary ---
Author Organization [facility] Address [address] [place] [address] Phone Care Team Providers Care Auto Body Shop Manager Name Role Phone SloanQuang walker Oswaldo PRESLEY Unavailable [phone] Silvio Schulte MD Unavailable [phone] Werner Swift MD Unavailable Liz Capellan DO Primary Care Provider [phone] Yasmin Restrepo MD Unavailable Jose Do MD Unavailable Reason for Visit * Reason Comments Medication Refill Encounter Details Date Type Department Care Team (Late st Contact Info) Description 09/04/2024 Refill [facility] Med Surg [address] [place] [address] Keith Craft MD #1 [place] [address] Medication Refill Social History Tobacco Use Types [...] declined 08/22/2024 How often do you attend protestant or gnosticism serv ices? Patient declined 08/22/2024 Do you [...] Total Score - Questions 1-9 0 06/27 [facility] [place] of Occupat ional Health - Occupational Stress [...] in a chcf (including now)? No 07/13/2023 Housing Stability Vital [...] any time in the past 12 [facility], were you homeless or living in a chcf (including now)? Patient unable to answer 08/22/2024 [...] 09/02/2024 60 30 Tablet Werner Swift MD [facility] Bet... PREDNISONE 50 MG TABLET 08/24/2024 1 5 Tablet Laurent Kumar MD [facility] Bet... PREDNISONE 20 MG TABLET 08/17/2024 4 4 Tablet Charlie Saunders APRN, [facility] Bet... PREDNISONE 10 MG TABLET 07/07/2024 60 30 Tablet Werner Swift MD [facility] Bet... documented in this encounter Plan of Treatment Upcoming Encounters Date Type Department Care Team (Late st Contact Info) Description 04/26/2025 1:30 PM BITUMEN PLANT OPERATOR Office Visit [facility] Medical [facility] - Pulmonology & Sleep [facility] #2 [place] [address] Werner Swift MD #2 [place] [address] 05/31/2025 1:20 PM BITUMEN PLANT OPERATOR Office Visit [facility] Medical [facility] - Family Medicine - [place] #2 [place] [address] Liz Capellan, DO 2 [facility]. [address] [place] [address] 06/02/2025 1:30 PM BITUMEN PLANT OPERATOR Office Visit [facility] - Endocrinology - [place] #[address] [place] [address] Yasmin Restrepo MD #[address] [facility] [address] documented as of this encounter Goals Goal [...] Zones/Action plan education. I will notify my Loader if my symptoms fall in the y [...] Total Score: 0 07/13/19 25 1:20 PM BITUMEN PLANT OPERATOR documented as of this encounter Care Teams Auto Body Shop Manager Relationship Specialty Start Date End Date Liz Capellan, DO 2 [facility] [address] [place], [place] [phone] PCP - General Family Medicine 12/27/23 Quang Locke DO Gastroenterology 01/18/16 [place] [address] [address] 05/25/21 Werner Swift MD #2 [place] [address] Consulting Physician Pulmonary Disease 01/30/22 Yasmin Restrepo MD #[address] [phone] Consulting Physician Endocrinology 07/20/24 Jose Do MD #[address] [address] Consulting Physician Colon and Rectal Surgery 10/12/24 documented as of this encounter
--- OUTSIDE RECORDS SUMMARY | 2025-03-23 14:57 | XMS_ITS | Encounter Summary ---
Author Organization [facility] Address [address] [place] [address] Phone Care Team Providers Care Copy Editor Name Role Phone Quang Locke Unavailable [phone] Keith Craft MD Primary Care Provider [phone] Bri Rollins RN Unavailable Unavailable Silvio Schulte MD Unavailable [phone] Bri Rollins RN Unavailable Unavailable Werner Swift MD Unavailable Liz Capellan DO Primary Care Provider [phone] Yasmin Resterpo MD Unavailable Jose Do MD Unavailable Reason for Visit * Reason Comments Medication Refill Encounter Details Date Type Department Care Team (Late st Contact Info) Description 09/29/[address] [facility] - Family Medicine [facility] #2 [place] [address] Keith Craft MD [address]1 [place] [address] Medication Refill Social History Tobacco [...] [facility] 07/18/22 Office Visit Kerri Kauffman, FLIGHT SURGEON, HOUSE VISITOR [facility] 06/07/22 Office Visit Keith Craft MD [facility] [place] 03/02/22 Procedure Visit [facility] [place] 03/02/22 Office Visit Keith Craft MD [facility] [place] 11/03/21 Office Visit Keith Craft MD [facility] 10/19/21 Office Visit Keith Craft MD [facility] 10/05/21 Office Visit Keith Craft MD [facility] Showing recent visits within past 365 [...] 07/18/22 Office Visit Kerri Kauffman APRN, JAKOB [facility] 06/07/22 Office Visit Keith Craft MD [facility] 03/02/22 Procedure Visit [facility] 03/02/22 Office Visit Keith Craft MD [facility] [place] 11/03/21 Office Visit Keith Craft MD [facility] 10/19/21 Office Visit Keith Craft MD [facility] 10/05/21 Office Visit Keith Craft MD [facility] 09/08/21 Office Visit Brie Denis, [facility] [place] 08/14/21 Office Visit Keith Craft MD [facility] Showing recent visits within past 730 days and meeting all other requirements Future Appointments Date Type Provider Dept 12/10/22 Appointment Keith Craft MD [facility] Showing future appointments within next 90 days and meeting all other requirements Passed - No documented Systolic BP > 200 within past 3 months Passed - Number of active Serotonergic medications less than 3 documented in this encounter Plan of Treatment Upcoming Encounters Date Type Department Care Team (Late st Contact Info) Description 04/26/2025 1:30 PM MANAGER CAREER Office Visit [facility] Medical [facility] - Pulmonology & Sleep Medicine - [place] [address]2 [place] [address] Werner Swift MD #2 [facility] [place] [address] 05/31/2025 1:20 PM MANAGER CAREER Office Visit [facility] Medical [facility] - Family Medicine - [place] [address]2 [place] [address] Liz Capellan, DO 2 [facility] [address] [place] [address] 06/02/2025 1:30 PM MANAGER CAREER Office Visit [facility] Medical [facility] - Endocrinology - [place] #2 [place] [address] Yasmin Restrepo MD [address] [address] documented as of this encounter Goals Goal [...] Zones/Action plan education. I will notify my Color Print Inspector if my symptoms fall in the [...] documented as of this encounter Care Teams Copy Editor Relationship Specialty Start Date End Date Keith Craft MD PCP - General Family Medicine 01/14/19 12/26/23 Liz Capellan DO 2 [facility] [address] [place] [address] PCP - General Family Medicine 12/27/23 Quang Locke DO Gastroenterology 01/18/16 Bri Rollins, RN [place] Color Print Inspector 03/07/21 05/22/23 [place] [id number] [address] 05/25/21 Bri Rollins, RN [place] Nurse Color Print Inspector 03/07/21 05/23/23 Werner Swift MD #2 [place] [address] Consulting Physician Pulmonary Disease 01/30/22 Yasmin Restrepo MD #[address] [address] Consulting Physician Endocrinology 07/20/24 Jose Do MD #[address] [address] Consulting Physician Colon and Rectal Surgery 10/12/24 documented as of this encounter
--- OUTSIDE RECORDS SUMMARY | 2025-03-23 14:57 | XMS_ITS | Encounter Summary ---
Author Organization [facility] Address [address] [place] [address] Phone Care Team Providers Care Vulnerability Assessment Analyst Name Role Phone Quang Locke Unavailable [phone] Keith Craft MD Primary Care Provider Bri Rollins RN Unavailable Unavailable Silvio Schulte MD Unavailable [phone] Bri Rollins RN Unavailable Unavailable Werner Swift MD Unavailable Liz Capellan DO Primary Care Provider [phone] Yasmin Restrepo MD Unavailable Jose Do MD Unavailable Reason for Visit * Reason Comments Medication Refill Encounter Details Date Type Department Care Team (Late st Contact Info) Description 06/04/2022 Refill [facility] #2 [place] [address] Keith Craft MD [address] [place] [address] Medication Refill Social History Tobacco [...] Coronavirus/COVID-19? No / Unsure 06/06/2022 2:21 PM ASSEMBLER FLEXIBLE LEADS documented as of this encounter Miscellaneous Notes * Telephone Encounter - Georgia Roblero RN - 06/04/2022 11:05 AM ASSEMBLER FLEXIBLE LEADS Medication failed the protocol, provider to review [...] 03/02/22 Procedure Visit [facility] 03/02/22 Office Visit [...] 52 (L) >=60 Final ergocalciferol (VITAMIN D) 91543 UNIT Capsule [Pharmacy Med Name: VITAMIN D [id number] CAPSULE] 12 Capsule 0 Sig: TAKE ONE CAPSULE BY MOUTH ONE TIME WEEKLY Vitamin Supplements (Adult) Protocol Failed - 06/04/2022 10:20 AM Failed - Vitamin D less than 1.25mg Passed - Visit with relevant provider in past 12 months or upcoming 90 days Recent Visits Date Type Provider Dept 03/02/22 Procedure Visit [facility] 03/02/22 Office Visit [...] 03/02/22 Procedure Visit [facility] 03/02/22 Office Visit Keith Cratf MD [facility] 11/03/21 Office Visit Keith Craft, MD [facility] 10/19/21 Office Visit Keith Craft MD [facility] 10/05/21 Office Visit Keith Craft MD [facility] 09/08/21 Office Visit Brie Denis, NICOLE [facility] 08/14/21 Office Visit [...] 03/02/22 Procedure Visit [facility] 03/02/22 Office Visit [...] 03/02/22 Procedure Visit [facility] 03/02/22 Office Visit Keith Craft MD [facility] 11/03/21 Office Visit Keith Craft MD [facility] 10/19/21 [facility] 10/05/21 Office Visit Keith Craft MD [facility] 09/08/21 Office Visit Brie Denis, [facility] 08/14/21 Office Visit [facility] 07/31/21 Office Visit Keith Craft MD [facility] [place] Showing recent visits within past 365 days [...] 03/02/22 Procedure [facility] 03/02/22 Office Visit Keith Craft MD [facility] 11/03/21 Office Visit Keith Craft MD [facility] 10/19/21 Office Visit Keith Craft MD [facility] 10/05/21 Office Visit Keith Craft MD [facility] 09/08/21 Office Visit Brie Denis PAC [facility] 08/14/21 Office Visit Keith Craft MD [facility] 07/31/21 Office Visit Keith Craft MD [facility] [place] Showing recent visits within past 365 days and meeting all other requirements Future Appointments Date Type Provider Dept 06/07/22 Appointment Keith Craft MD [facility] Showing future appointments within next 90 days and meeting all other requirements MBLER FLEXIBLE LEADS documented in this encounter Plan of Treatment Upcoming Encounters Date Type Department Care Team (Late st Contact Info) Description 04/26/2025 1:30 PM ASSEMBLER FLEXIBLE LEADS Office Visit [facility] Medical [facility] - Pulmonology & Sleep Medicine [facility] #2 [place] [address] Werner Swift MD [address] [place] [address] 05/31/2025 1:20 PM ASSEMBLER FLEXIBLE LEADS Office Visit [facility] Medical [facility] - Family Medicine - [place] [address]2 [place] [address] Liz Capellan, DO [address] [address] 06/02/2025 1:30 PM ASSEMBLER FLEXIBLE LEADS Office Visit [facility] - Endocrinology [facility]3] #2 [place] [address] Yasmin Restrepo MD #[address] [phone] documented as of this encounter Goals Goal [...] Zones/Action plan education. I will notify my Measurement And Verification Engineer if my symptoms fall in the y ellow zone . I will consider receiving an influenza and pneumonia vaccination, if applicable. -I will call the office if I experience any symptoms listed above to discuss at home management options. documented as of this encounter Visit Diagnoses Diagnosis Type 2 diabetes mellitus with diabetic neuropathy, with long-term current use of insulin Insomnia, unspecified type Type 2 diabetes mellitus with diabetic neuropathy, unspecified documented in this encounter Additional Health Concerns Infection Onset Date Last Indicated Resolved Time Stenotrophomonas maltophilia Comment:Must have a follow up respiratory sample to remove isolation/infection flag. 10/20/2021 10/20/2021 COVID - 19 07/18/2022 07/18/2022 07/28/2022 12:1 6 AM ASSEMBLER FLEXIBLE LEADS COVID - 19 08/21/2022 08/21/2022 08/22/2022 8:31 AM CDT Respiratory Rule Out - RPA 08/21/2022 08/21/2022 0 08/22/2022 3:21 PM CDT COVID - 19 04/18/2023 04/18/2023 04/28/2023 12:1 6 AM ASSEMBLER FLEXIBLE LEADS COVID - 07/13/2023 07/13/2023 07/23/2023 12:1 6 AM ASSEMBLER FLEXIBLE LEADS Respiratory Rule Out - RPA 03/17/2024 03/17/2024 1 3:36 PM CDT COVID - 19 04/27/2024 04/27/2024 04/27/2024 2:19 PM ASSEMBLER FLEXIBLE LEADS Respiratory Rule-Out 07/24/2024 07/24/2024 025 2:29 PM ASSEMBLER FLEXIBLE LEADS COVID - 19 07/24/2024 07/24/2024 07/24/2024 2:29 PM ASSEMBLER FLEXIBLE LEADS COVID - 19 08/22/2024 08/22/2024 08/22/2024 11:4 6 PM CDT COVID - 19 09/03/2024 09/03/2024 09/03/2024 12:4 7 PM CDT Assessment Noted Time PHQ-9 Depression Total Score: 1 03/07/20 10:29 AM CDT documented as of this encounter Care Teams Vulnerability Assessment Analyst Relationship Specialty Start Date End Date Keith Craft MD PCP - General Family Medicine 01/14/19 12/26/23 Liz Capellan DO [address] [address] PCP - General Family Medicine 12/27/23 Quang Locke DO Gastroenterology 01/18/16 Bri Rollins RN [place] Measurement And Verification Engineer 03/07/21 05/22/23 [place] [id number] [address] 05/25/21 Bri Rollins RN [place] Nurse Measurement And Verification Engineer 03/07/21 05/23/23 Werner Swift MD #2 [place] [address] Consulting Physician Pulmonary Disease 01/30/22 Yasmin Restrepo MD #[address] [address] Consulting Physician Endocrinology 07/20/24 Jose Do MD #[address] [address] Consulting Physician Colon and Rectal Surgery 10/12/24 documented as of this encounter
--- OUTSIDE RECORDS SUMMARY | 2025-03-23 14:57 | XMS_ITS | Encounter Summary ---
Author Organization [facility] Address [address] [place] [address] Phone Care Team Providers Care Cooperative Manager Name Role Phone Quang Locke Unavailable [phone] Keith Craft MD Primary Care Provider [phone] Bri Rollins RN Unavailable Unavailable Silvio Schulte MD Unavailable [phone] Bri Rollins RN Unavailable Unavailable Werner Swift MD Unavailable Liz Capellan DO Primary Care Provider [phone] Yasmin Restrepo MD Unavailable Jose Do MD Unavailable Reason for Visit * Reason Comments Medication Refill Encounter Details Date Type Department Care Team (Late st Contact Info) Description 02/25/2021 Refill [facility] - [facility] Medicine [facility] #2 [place] [phone] Brie Denis, PAC [address]2 [place] [address] Medication Refill Social History Tobacco Use Types [...] [place] 10/04/20 Office Visit Keith Craft MD [facility] Showing recent visits within past 182 days and meeting all other requirements Future Appointments Date Type Provider Dept 04/14/21 Appointment [facility] Show[facility] future appointments within next 90 days and meeting all other requirements Passed - Has an encounter in the past 6 months with a depression or anxiety visit diagnosis documented in this encounter Plan of Treatment Upcoming Encounters Date Type Department Care Team (Late st Contact Info) Description 04/26/2025 1:30 PM ASH CONVEYOR OPERATOR Office Visit [facility] Medical [facility] - Pulmonology & Sleep Medicine - [place] #2 [place] [address] Werner Swift MD #2 [facility] [place] [address] 05/31/2025 1:20 PM ASH CONVEYOR OPERATOR Office Visit [facility] Medical [facility] - Family Medicine - [place] #2 [facility] [place] [address] Liz Capellan, DO 2 [facility]. [address] [place] [address] 06/02/2025 1:30 PM ASH CONVEYOR OPERATOR Office Visit [facility] - Endocrinology - [place] #2 [place] [phone] Yasmin Restrepo MD #[address] [place] [address] documented as of this encounter Visit Diagnoses Diagnosis Anxiety Anxiety state, unspecified documented in this encounter Additional Health Concerns Infection Onset Date Last Indicated Resolved Time COVID - 19 07/23/2021 07/23/2021 07/24/2021 6:31 AM ASH CONVEYOR OPERATOR COVID - 19 10/19/2021 10/19/2021 10/20/2021 7:45 AM CDT Respiratory Rule Out - RPA 10/19/2021 10/19/2021 0 10/20/2021 2:10 PM CDT Stenotrophomonas maltophilia Comment:Must have a follow up respiratory sample to remove isolation/infection flag. 10/20/2021 10/20/2021 COVID - 19 04/20/2022 04/20/2022 04/30/2022 12:1 8 AM ASH CONVEYOR OPERATOR COVID - 19 07/18/2022 07/18/2022 07/28/2022 12:1 6 AM ASH CONVEYOR OPERATOR COVID - 19 08/21/2022 08/21/2022 08/22/2022 8:31 AM CDT Respiratory Rule Out - RPA 08/21/2022 08/21/2022 0 08/22/2022 3:21 PM CDT COVID - 19 04/18/2023 04/18/2023 04/28/2023 12:1 6 AM ASH CONVEYOR OPERATOR COVID - 19 07/13/2023 07/13/2023 07/23/2023 12:1 6 AM ASH CONVEYOR OPERATOR Respiratory Rule Out - RPA 03/17/2024 03/17/2024 1 3:36 PM CDT COVID - 19 04/27/2024 04/27/2024 04/27/2024 2:19 PM ASH CONVEYOR OPERATOR Respiratory Rule-Out 07/24/2024 07/24/2024 025 2:29 PM ASH CONVEYOR OPERATOR COVID - 19 07/24/2024 07/24/2024 07/24/2024 2:29 PM ASH CONVEYOR OPERATOR COVID - 19 08/22/2024 08/22/2024 08/22/2024 11:4 6 PM CDT COVID - 19 09/03/2024 09/03/2024 09/03/2024 12:4 7 PM CDT Assessment Noted Time PHQ-9 Depression Total Score: 0 02/04/20 21 11:12 AM CDT documented as of this encounter Care Teams Cooperative Manager Relationship Specialty Start Date End Date Keith Craft MD PCP - General Family Medicine 01/14/19 12/26/23 Liz Capellan DO [address] [facility] [address] [place] [address] PCP - General Family Medicine 12/27/23 Quang Locke DO Gastroenterology 01/18/16 Bri Rollins, KATEY [place] Attendant [place] 03/07/21 05/22/23 [place] [address] [address] 05/25/21 Bri Rollins RN [place] Nurse Attendant [place] 03/07/21 05/23/23 Werner Swift MD #[address] [place] [address] Consulting Physician Pulmonary Disease 01/30/22 Yasmin Restrepo MD #[address] [facility] [address] [phone] Consulting Physician Endocrinology 07/20/24 Jose Do MD #[address] [facility] [address] [address] Consulting Physician Colon and Rectal Surgery 10/12/24 documented as of this encounter"
--- OUTSIDE RECORDS SUMMARY | 2025-03-23 14:58 | XMS_ITS | Encounter Summary ---
Author Organization [facility] Address [address] [place] [address] Phone Care Team Providers Care [employer] Name Role Phone Quang Locke Unavailable [phone] Keith Craft MD Primary Care Provider [phone] Bri Rollins RN Unavailable Unavailable Silvio Schulte MD Unavailable [phone] Bri Rollins RN Unavailable Unavailable Werner Swift MD Unavailable Liz Capellan DO Primary Care Provider [phone] Yasmin Restrepo MD Unavailable Jose Do MD Unavailable Reason for Visit * Reason Comments Medication Refill Encounter Details Date Type Department Care Team (Late st Contact Info) Description 01/18/2022 Refill [facility] - [facility] #2 [place] [address] Keith Craft MD #1 [place] [address] Medication Refill Social History Tobacco [...] st Contact Info) Description 04/26/2025 1:30 PM DIRECT MAIL MARKETER Office Visit [facility] Medical [facility] - Pulmonology & Sleep Medicine - [place] #2 [place] [address] Werner Swift MD #2 [place] [address] 05/31/2025 1:20 PM DIRECT MAIL MARKETER Office Visit [facility] - Family Medicine - [place] #2 [place] [address] Liz Capellan, DO [address] [address] 06/02/2025 1:30 PM DIRECT MAIL MARKETER Office Visit [facility] Endocrinology - [place] #2 [place] [address] Yasmin Restrepo MD #[address] [address] documented as of this encounter Goals Goal [...] plan education. I will notify my Meat Counter Clerk if my symptoms fall in the [...] 19 04/20/2022 04/20/2022 04/30/2022 12:1 8 AM DIRECT MAIL MARKETER COVID - 19 07/18/2022 07/18/2022 07/28/2022 12:1 6 AM DIRECT MAIL MARKETER COVID - 19 08/21/2022 08/21/2022 08/22/2022 8:31 AM CDT Respiratory Rule Out - RPA 08/21/2022 08/21/2022 0 08/22/2022 3:21 PM CDT COVID - 19 04/18/2023 04/18/2023 04/28/2023 12:1 6 AM DIRECT MAIL MARKETER COVID - 19 07/13/2023 07/13/2023 07/23/2023 12:1 6 AM DIRECT MAIL MARKETER Respiratory Rule Out - RPA 03/17/2024 03/17/2024 1 3:36 PM CDT COVID - 19 04/27/2024 04/27/2024 04/27/2024 2:19 PM DIRECT MAIL MARKETER Respiratory Rule-Out 07/24/2024 07/24/2024 025 2:29 PM DIRECT MAIL MARKETER COVID - 19 07/24/2024 07/24/2024 07/24/2024 2:29 PM DIRECT MAIL MARKETER COVID - 19 08/22/2024 08/22/2024 08/22/2024 11:4 6 PM CDT COVID - 19 09/03/2024 09/03/2024 09/03/2024 12:4 7 PM CDT Assessment Noted Time PHQ-9 Depression Total Score: 1 03/07/20 21 10:29 AM CDT documented as of this encounter Care Teams [employer] Relationship Specialty Start Date End Date Keith Craft MD PCP - General Family Medicine 01/14/19 12/26/23 Liz Capellan DO [address] [address] PCP - General Family Medicine 12/27/23 Quang Locke DO Gastroenterology 01/18/16 Bri Rollins RN [place] Meat Counter Clerk 03/07/21 05/22/23 [place] [address] [address] 05/25/21 Bri Rollins RN [place] Nurse Meat Counter Clerk 03/07/21 05/23/23 Werner Swift MD #2 [place] [address] Consulting Physician Pulmonary Disease 01/30/22 Yasmin Restrepo MD #[address] [phone] Consulting Physician Endocrinology 07/20/24 Jose Do MD #2 [place] [address] Consulting Physician Colon and Rectal Surgery 10/12/24 documented as of this encounter
--- OUTSIDE RECORDS SUMMARY | 2025-03-23 14:58 | XMS_ITS | Encounter Summary ---
Author Organization [facility] Address [address] [place] [address] Phone Care Team Providers Care Foreign Law Consultant Name Role Phone Quang Locke Unavailable [phone] Keith Craft MD Primary Care Provider [phone] Bri Rollins RN Unavailable Unavailable Silvio Schulte MD Unavailable [phone] Bri Rollins RN Unavailable Unavailable Werner Swift MD Unavailable Liz Capellan DO Primary Care Provider [phone] Yasmin Restrepo MD Unavailable Jose Do MD Unavailable Reason for Visit * Reason Onset Date Comments Medication Refill 01/06/2022 Encounter Details Date Type Department Care Team (Late st Contact Info) Description 01/06/2022 Telephone [facility] [address] [place] [address] Keith Craft MD [address]1 [place] [address] Medication Refill Social History Tobacco [...] CDT Patient calling to request refill of [place]. Pharmacy verified. States she will get a delivery from the pharmacy on Saturday, which should be the fill date of thismedication. [facility] her appointment to be seen by Keith Craft MD was changed from end of November to February by KATEY Swain. BSN. [facility] was told no need to be seen until then. Patient asking if there is anything needed for this order to be refilled? Please review documented in this encounter Plan of Treatment Upcoming Encounters Date Type Department Care Team (Late st Contact Info) Description 04/26/2025 1:30 PM NEUROLOGY TECH Office Visit [facility] - Pulmonology & Sleep Medicine [facility] #2 [place] [address] Werner Swift MD #2 [place] [address] 05/31/2025 1:20 PM NEUROLOGY TECH Office Visit [facility] - Family Medicine [facility] #2 [place] [address] Liz Capellan, DO 2 [facility]. [address] [place] [address] 06/02/2025 1:30 PM NEUROLOGY TECH Office Visit [facility] - Endocrinology - [place] #[address] [place] [address] Yasmin Restrepo MD #2 [facility] [address] [place] [address] documented as of this encounter Goals Goal [...] Zones/Action plan education. I will notify my Varnish Cooker if my symptoms fall in the y [...] 19 04/20/2022 04/20/2022 04/30/2022 12:1 8 AM NEUROLOGY TECH COVID - 19 07/18/2022 07/18/2022 07/28/2022 12:1 6 AM NEUROLOGY TECH COVID - 19 08/21/2022 08/21/2022 08/22/2022 8:31 AM CDT Respiratory Rule Out - RPA 08/21/2022 08/21/2022 0 08/22/2022 3:21 PM CDT COVID - 19 04/18/2023 04/18/2023 04/28/2023 12:1 6 AM NEUROLOGY TECH COVID - 19 07/13/2023 07/13/2023 07/23/2023 12:1 6 AM NEUROLOGY TECH Respiratory Rule Out - RPA 03/17/2024 03/17/2024 1 3:36 PM CDT COVID - 19 04/27/2024 04/27/2024 04/27/2024 2:19 PM NEUROLOGY TECH Respiratory Rule-Out 07/24/2024 07/24/2024 025 2:29 PM NEUROLOGY TECH COVID - 19 07/24/2024 07/24/2024 07/24/2024 2:29 PM NEUROLOGY TECH COVID - 19 08/22/2024 08/22/2024 08/22/2024 11:4 6 PM CDT COVID - 19 09/03/2024 09/03/2024 09/03/2024 12:4 7 PM CDT Assessment Noted Time PHQ-9 Depression Total Score: 1 03/07/20 21 10:29 AM CDT documented as of this encounter Care Teams Foreign Law Consultant Relationship Specialty Start Date End Date Keith Craft MD PCP - General Family Medicine 01/14/19 12/26/23 Liz Capellan DO [address] [address] PCP - General Family Medicine 12/27/23 Quang Locke DO Gastroenterology 01/18/16 Bri Rollins, RN [place] Varnish Cooker 03/07/21 05/22/23 [place] [id number] [address] 05/25/21 Bri Rollins, KATEY [place] Nurse Varnish Cooker 03/07/21 05/23/23 Werner Swift MD #2 [place] [address] Consulting Physician Pulmonary Disease 01/30/22 Yasmin Restrepo MD #[address] [address] Consulting Physician Endocrinology 07/20/24 Jose Do MD #[address] [id number] Consulting Physician Colon and Rectal Surgery 10/12/24 documented as of this encounter
--- OUTSIDE RECORDS SUMMARY | 2025-03-23 14:58 | XMS_ITS | Encounter Summary ---
Author Organization [facility] Address [address] [place] [address] Phone Care Team Providers Care Venture Capital Analyst Name Role Phone Quang Locke Unavailable [phone] Keith Craft MD Primary Care Provider [phone] Bri Rollins RN Unavailable Unavailable Silvio Schulte MD Unavailable [phone] Bri Rollins RN Unavailable Unavailable Werner Swift MD Unavailable Liz Capellan DO Primary Care Provider [phone] Yasmin Restrepo MD Unavailable Jose Do MD Unavailable Reason for Visit * Reason Comments Medication Refill Encounter Details Date Type Department Care Team (Late st Contact Info) Description 07/14/2020 Refill [facility] [address]2 [place] [address] Keith Craft MD [address] [place] [address] Medication Refill Social History Tobacco [...] COVID-19? 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 [facility] Keith Lemus MD Upcoming Appointments Future Appointments In 2 weeks [facility] 2ND VACCINE CLINIC [facility] [place] In 2 months Keith Craft MD [facility] STONER OUT - Recent and Past Visits Recent Visits Date Type Provider Dept 06/07/20 Office Visit Keith Craft MD [facility] 04/25/20 Office Visit Keith Craft, MD [facility] 02/02/20 Office Visit Keith Craft MD [facility] 11/02/19 Office Visit Keith Craft MD [facility] 07/27/19 Office Visit Keith Craft, MD [facility] 06/10/19 Office Visit Brie Denis, [facility] 04/20/19 Office Visit Keith [facility] Showing recent visits within past 460 [...] Outpatient Visits 1 month ago Mixed hyperlipidemia [facility] Keith Lemus MD 2 months ago Pneumonia of right upper lobe due to infectious organism [facility] Keith Lemus MD 5 months ago Acute non-recurrent maxillary sinusitis [facility] Keith Laughlin MD 8 months ago Chronic prescription opiate use [facility] Keith Lemus MD 11 months ago 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 [facility] Keith Lemus MD Upcoming Appointments Future Appointments In 2 weeks [facility] 2ND VACCINE CLINIC [facility] - [facility] - [facility] [place] In 2 months Keith Craft MD [facility] [place] STONER OUT - Recent and Past Visits Recent Visits Date Type Provider Dept 06/07/20 Office Visit Keith Craft, MD [facility] 04/25/20 Office Visit Keith Craft, [facility] 02/02/20 Office Visit Keith Craft, MD [facility] 11/02/19 Office Visit Keith Craft, MD [facility] 07/27/19 Office Visit Keith Craft, MD [facility] 06/10/19 Office Visit Cira Brie Palma, NICOLE [facility] 04/20/19 Office Visit Keith Craft, [facility] Showing recent visits within past 460 [...] 07/27/2019 14 10 - 20 mcg/mL Final SSIONS EVALUATOR * Telephone Encounter - Camila Mehta RN - 07/14/2020 12:40 PM CST Medication approved and signed per standing order protocol. SSIONS EVALUATOR documented in this encounter Plan of Treatment Upcoming Encounters Date Type Department Care Team (Late st Contact Info) Description 04/26/2025 1:30 PM ADMISSIONS EVALUATOR Office Visit [facility] - Pulmonology & Sleep Medicine - [place] [address] [place] [address] Werner Swift MD [address]2 [place] [address] 05/31/2025 1:20 PM ADMISSIONS EVALUATOR Office Visit [facility] - Family Medicine - [place] [address] [place] [address] Liz Capellan, DO [address] [address] 06/02/2025 1:30 PM ADMISSIONS EVALUATOR Office Visit [facility] - Endocrinology - [place] [address] [place] [address] Yasmin Restrepo MD #[address] [address] documented as of this encounter [...] - 19 07/23/2021 07/23/2021 07/24/2021 6:31 AM ADMISSIONS EVALUATOR COVID - 19 10/19/2021 10/19/2021 10/20/2021 7:45 AM CDT Respiratory Rule Out - RPA 10/19/2021 10/19/2021 0 10/20/2021 2:10 PM CDT Stenotrophomonas maltophilia Comment:Must have a follow up respiratory sample to remove isolation/infection flag. 10/20/2021 10/20/2021 COVID - 19 04/20/2022 04/20/2022 04/30/2022 12:1 8 AM ADMISSIONS EVALUATOR COVID - 19 07/18/2022 07/18/2022 07/28/2022 12:1 6 AM ADMISSIONS EVALUATOR COVID - 19 08/21/2022 08/21/2022 08/22/2022 8:31 AM CDT Respiratory Rule Out - RPA 08/21/2022 08/21/2022 0 08/22/2022 3:21 PM CDT COVID - 19 04/18/2023 04/18/2023 04/28/2023 12:1 6 AM ADMISSIONS EVALUATOR COVID - 19 07/13/2023 07/13/2023 07/23/2023 12:1 6 AM ADMISSIONS EVALUATOR Respiratory Rule Out - RPA 03/17/2024 03/17/2024 1 3:36 PM CDT COVID - 19 04/27/2024 04/27/2024 04/27/2024 2:19 PM ADMISSIONS EVALUATOR Respiratory Rule-Out 07/24/2024 07/24/2024 025 2:29 PM ADMISSIONS EVALUATOR COVID - 19 07/24/2024 07/24/2024 07/24/2024 2:29 PM ADMISSIONS EVALUATOR COVID - 19 08/22/2024 08/22/2024 08/22/2024 11:4 6 PM CDT COVID - 19 09/03/2024 09/03/2024 09/03/2024 12:4 7 PM CDT Assessment Noted Time PHQ-9 Depression Total Score: 2 06/07/19 21 2:34 PM ADMISSIONS EVALUATOR documented as of this encounter Care Teams Venture Capital Analyst Relationship Specialty Start Date End Date Keith Craft MD PCP - General Family Medicine 01/14/19 12/26/23 Liz Capellan DO [address] [address] PCP - General Family Medicine 12/27/23 Quang Locke DO Gastroenterology 01/18/16 Bri Rollins RN [place] Rn Immunology 03/07/21 05/22/23 [place] [id number] [address] 05/25/21 Bri Rollins RN [place] Nurse Rn Immunology 03/07/21 05/23/23 Werner Swift MD #2 [place] [address] Consulting Physician Pulmonary Disease 01/30/22 Yasmin Restrepo MD #[address] [address] Consulting Physician Endocrinology 07/20/24 Jose Do MD #[address] [id number] Consulting Physician Colon and Rectal Surgery 10/12/24 documented as of this encounter
--- OUTSIDE RECORDS SUMMARY | 2025-03-23 14:58 | XMS_ITS | Encounter Summary ---
Author Organization [facility] Address [address] [place] [address] Phone Care Team Providers Care Laborer Aquatic Life Name Role Phone Quang Locke Unavailable [phone] Keith Craft MD Primary Care Provider Silvio Schulte MD Unavailable [phone] Werner Swift MD Unavailable Liz Capellan DO Primary Care Provider [phone] Yasmin Restrepo MD Unavailable Jose Do MD Unavailable Reason for Visit * Reason Comments Medication Refill Encounter Details Date Type Department Care Team (Late st Contact Info) Description 09/30/2023 Refill [facility] #2 [place] [address] Keith Craft MD [address] [place] [address] Medication Refill Social History Tobacco Use Types Packs/Day Years Used Date Smoking Tobacco: Former Cigarettes 2 50 1 - 03/16/2018 Smokeless Tobacco: Never Comments:Still uses nictoine patches and gum Alcohol Use Standard Drinks/Week Comments No 0 (1 standard drink = 0.6 oz pur e alcohol) [facility] Utilities Answer Date Recorded In [...] Total Score - Questions 1-9 0 08/2021 [facility] [place] of Occupat ional Health - Occupational Stress [...] AM CDT Signed 6 days ago (09/24/2023): Manjinderleshakeel Ellipta 100-62.5-25 MCG/ACT AEROSOL POWDER, BREATH ACTIVATED Sig: TAKE ONE (1) PUFF BY INHALATION DAILY. Disp: 60 Each Refills: 2 Signed by: Keith Craft MD documented in this encounter Plan of Treatment Upcoming Encounters Date Type Department Care Team (Late st Contact Info) Description 04/26/2025 1:30 PM HEAT TREAT WORKER Office Visit [facility] - Pulmonology & Sleep Medicine - [place] [address]2 [place] [address] Werner Swift MD #2 [facility] [place] [address] 05/31/2025 1:20 PM HEAT TREAT WORKER Office Visit [facility] - Family Medicine - [place] [address] [place] [address] Liz Capellan, DO [address] [address] 06/02/2025 1:30 PM HEAT TREAT WORKER Office Visit [facility] Endocrinology - [place] [address] [place] [address] Yasmin Restrepo MD #[address] [place] [address] documented as of this encounter Goals Goal [...] Zones/Action plan education. I will notify my Gate Technician if my symptoms fall in the [...] - 19 04/27/2024 04/27/2024 04/27/2024 2:19 PM HEAT TREAT WORKER Respiratory Rule-Out 07/24/2024 07/24/2024 025 2:29 PM HEAT TREAT WORKER COVID - 19 07/24/2024 07/24/2024 07/24/2024 2:29 PM HEAT TREAT WORKER COVID - 19 08/22/2024 08/22/2024 08/22/2024 11:4 6 PM CDT COVID - 19 09/03/2024 09/03/2024 09/03/2024 12:4 7 PM CDT Assessment Noted Time PHQ-9 Depression Total Score: 1 03/07/20 21 10:29 AM CDT documented as of this encounter Care Teams Laborer Aquatic Life Relationship Specialty Start Date End Date Keith Craft MD PCP - General Family Medicine 01/14/19 12/26/23 Liz Capellan DO 2 [facility] [place] [address] PCP - General Family Medicine 12/27/23 Quang Locke DO Gastroenterology 01/18/16 [place] [address] [address] 05/25/21 Werner Swift MD [address] [place] [address] Consulting Physician Pulmonary Disease 01/30/22 Yasmin Restrepo MD #[address] [address] Consulting Physician Endocrinology 07/20/24 Jose Do MD #[address] [address] Consulting Physician Colon and Rectal Surgery 10/12/24 documented as of this encounter
--- OUTSIDE RECORDS SUMMARY | 2025-03-23 14:58 | XMS_ITS | Encounter Summary ---
Author Organization [facility] Address [address] [place] [address] Phone Care Team Providers Care Spa Receptionist Name Role Phone Quang Locke Unavailable [phone] Keith Craft MD Primary Care Provider [phone] Bri Rollins RN Unavailable Unavailable Silvio Schulte MD Unavailable [phone] Bri Rollins RN Unavailable Unavailable Werner Swift MD Unavailable Liz Capellan DO Primary Care Provider [phone] Yasmin Restrepo MD Unavailable Jose Do MD Unavailable Reason for Visit * Reason Comments Medication Refill Encounter Details Date Type Department Care Team (Late st Contact Info) Description 07/09/2022 Refill [facility] #2 [place] [address] Keith Craft MD [address] [place] [address] Medication Refill Social History Tobacco [...] Georgia Roblero RN - 07/09/2022 11:01 AM FAMILY RESOURCE MANAGEMENT PROFESSOR Medication failed the protocol, provider to review [...] Dept 06/07/22 Office Visit Keith Craft MD [facility] [place] 03/02/22 Procedure Visit [facility] [place] 03/02/22 Office Visit Keith Craft MD [facility] 11/03/21 Office Visit Keith Craft MD [facility] 10/19/21 Office Visit Keith Craft MD [facility] 10/05/21 Office Visit Keith Craft MD [facility] 09/08/21 Office Visit Brie Denis, PAC [facility] [place] 08/14/21 Office Visit Keith Craft MD [facility] 07/31/21 Office Visit Keith Craft MD [facility] Showing recent visits within past 365 days and meeting all other requirements Future Appointments Date Type Provider Dept 09/10/22 Appointment Keith Craft MD [facility] Showing [...] 03/02/22 Procedure Visit [facility] [place] 03/02/22 Office Visit Keith Craft MD [facility] 11/03/21 Office Visit Keith Craft MD [facility] 10/19/21 Office Visit Keith Craft MD [facility] 10/05/21 Office Visit Keith Craft MD [facility] 09/08/21 Office Visit Brie Denis, PAC [facility] [place] 08/14/21 Office Visit Keith Craft MD [facility] 07/31/21 Office Visit Keith Craft MD [facility] Showing recent visits within past 365 days and meeting all other requirements Future Appointments Date Type Provider Dept 09/10/22 Appointment Keith Craft MD [facility] Showing future appointments within next 90 days and meeting all other requirements LY RESOURCE MANAGEMENT PROFESSOR documented in this encounter Plan of Treatment Upcoming Encounters Date Type Department Care Team (Late st Contact Info) Description 04/26/2025 1:30 PM FAMILY RESOURCE MANAGEMENT PROFESSOR Office Visit [facility] - Pulmonology & Sleep Medicine - [place] #2 [place] [address] Werner Swift MD #2 [place] [address] 05/31/2025 1:20 PM FAMILY RESOURCE MANAGEMENT PROFESSOR Office [facility] - Family Medicine - [place] #[address] [place] [address] Liz Capellan, DO 2 [facility]. [address] [place] [address] 06/02/2025 1:30 PM FAMILY RESOURCE MANAGEMENT PROFESSOR Office Visit [facility] Endocrinology - [place] [address] [place] [address] Yasmin Restrepo MD #2 [facility] [address] [place] [address] documented as of this encounter Goals Goal [...] Zones/Action plan education. I will notify my Acute Care Assistant if my symptoms fall in the [...] 07/18/2022 07/18/2022 07/28/2022 12:1 6 AM FAMILY RESOURCE MANAGEMENT PROFESSOR COVID - 19 08/21/2022 08/21/2022 08/22/2022 8:3 1 AM CDT Respiratory Rule Out - RPA 08/21/2022 08/21/2022 0 08/22/2022 3:21 PM CDT COVID - 19 04/18/2023 04/18/2023 04/28/2023 12:1 6 AM FAMILY RESOURCE MANAGEMENT PROFESSOR COVID - 19 07/13/2023 07/13/2023 07/23/2023 12:1 6 AM FAMILY RESOURCE MANAGEMENT PROFESSOR Respiratory Rule Out - RPA 03/17/2024 03/17/2024 1 3:36 PM CDT COVID - 19 04/27/2024 04/27/2024 04/27/2024 2:19 PM FAMILY RESOURCE MANAGEMENT PROFESSOR Respiratory Rule-Out 07/24/2024 07/24/2024 025 2:29 PM FAMILY RESOURCE MANAGEMENT PROFESSOR COVID - 19 07/24/2024 07/24/2024 07/24/2024 2:29 PM FAMILY RESOURCE MANAGEMENT PROFESSOR COVID - 19 08/22/2024 08/22/2024 08/22/2024 11:4 6 PM CDT COVID - 19 09/03/2024 09/03/2024 09/03/2024 12:4 7 PM CDT Assessment Noted Time PHQ-9 Depression Total Score: 1 03/07/20 21 10:29 AM CDT documented as of this encounter Care Teams Spa Receptionist Relationship Specialty Start Date End Date Keith Craft MD PCP - General Family Medicine 01/14/19 12/26/23 Liz Capellan DO 2 [facility] [address] [place] [address] PCP - General Family Medicine 12/27/23 Quang Locke DO Gastroenterology 01/18/16 Bri Rollins, RN [place] Acute Care Assistant 03/07/21 05/22/23 [place] [address] [address] 05/25/21 Bri Rollins, RN [place] Nurse Acute Care Assistant 03/07/21 05/23/23 Werner Swift MD #2 [place] [address] Consulting Physician Pulmonary Disease 01/30/22 Yasmin Restrepo MD #[address] [address] Consulting Physician Endocrinology 07/20/24 Jose Do MD #[address] [address] Consulting Physician Colon and Rectal Surgery 10/12/24 documented as of this encounter
--- OUTSIDE RECORDS SUMMARY | 2025-03-23 14:58 | XMS_ITS | Encounter Summary ---
Author Organization [facility] Address [address] [place] [address] Phone Care Team Providers Care Home Decorator Name Role Phone Quang Locke Unavailable [phone] Keith Craft MD Primary Care Provider [phone] Bri Rollins RN Unavailable Unavailable Silvio Schulte MD Unavailable [phone] Bri Rollins RN Unavailable Unavailable Werner Swift MD Unavailable Liz Capellan DO Primary Care Provider [phone] Yasmin Restrepo MD Unavailable Jose Do MD Unavailable Reason for Visit * Reason Comments Medication Refill Encounter Details Date Type Department Care Team (Late st Contact Info) Description 09/28/2020 Refill [facility] [address] [place] [address] Keith Craft MD [address] [place] [address] Medication Refill Social History Tobacco [...] Outpatient Visits 3 months ago Mixed hyperlipidemia [facility] Keith Lemus MD 5 months ago Pneumonia of right upper lobe due to infectious organism [facility] Keith Lemus MD 8 months ago Acute non-recurrent maxillary sinusitis [facility] Keith Lemus MD 11 months ago Chronic prescription opiate use [facility] Keith Lemus MD 1 year ago 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 [facility] Keith Lemus MD Upcoming Appointments Future Appointments In 5 days Keith Craft MD [facility] Maximiliano Tesfaye [facility] CREATIVE WRITING ENGLISH PROFESSOR - Recent and Past Visits Recent Visits [...] Outpatient Visits 3 months ago Mixed hyperlipidemia [facility] Keith Lemus MD 5 months ago Pneumonia of right upper lobe due to infectious organism [facility] Keith Lemus MD 8 months ago Acute non-recurrent maxillary sinusitis [facility] Keith Lemus MD 11 months ago Chronic prescription opiate use [facility] - Keith Jenkins MD 1 year ago 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 [facility] Keith Lemus MD Upcoming Appointments Future Appointments In 5 days Keith Craft MD [facility] Maximiliano Tesfaye [facility] CREATIVE WRITING ENGLISH PROFESSOR - Recent and Past Visits Recent Visits Date Type Provider Dept 06/07/20 Office Visit Keith Craft MD [facility] 04/25/20 Office Visit Keith Craft MD [facility] 02/02/20 Office Visit Keith Craft MD [facility] 11/02/19 Office Visit Keith Craft MD [facility] 07/27/19 Office Visit [facility] Showing recent visits within past 460 days with a meds authorizing provider and meeting all other requirements Future Appointments Date Type Provider Dept 10/04/20 Appointment Keith Craft MD [facility] Showing future appointments within next 90 days with a meds authorizing provider and meeting all other requirements documented in this encounter Plan of Treatment Upcoming Encounters Date Type Department Care Team (Late st Contact Info) Description 04/26/2025 1:30 PM PITCH FILLER Office Visit [facility] - Pulmonology & Sleep Medicine - [place] [address]2 [place] [address] Werner Swift MD #2 [place] [address] 05/31/2025 1:20 PM PITCH FILLER Office Visit [facility] - Family Medicine - [place] [address]2 [place] [address] Liz Capellan, DO [address] [address] 06/02/2025 1:30 PM PITCH FILLER Office Visit [facility] - Endocrinology - [place] [address]2 [place] [address] Yasmin Restrepo MD #[address] [place] [address] documented as of this encounter Visit Diagnoses Not on filedocumented in this encounter Additional Health Concerns Infection Onset Date Last Indicated Resolved Time COVID - 19 01/25/2021 01/25/2021 01/31/2021 8:10 AM CDT Respiratory Rule Out - RPA 01/30/2021 01/30/2021 0 02/01/2021 12:45 AM CDT COVID - 19 07/23/2021 07/23/2021 07/24/2021 6:31 AM PITCH FILLER COVID - 19 10/19/2021 10/19/2021 10/20/2021 7:45 AM CDT Respiratory Rule Out - RPA 10/19/2021 10/19/2021 0 10/20/2021 2:10 PM CDT Stenotrophomonas maltophilia Comment:Must have a follow up respiratory sample to remove isolation/infection flag. 10/20/2021 10/20/2021 COVID - 19 04/20/2022 04/20/2022 04/30/2022 12:1 8 AM PITCH FILLER COVID - 19 07/18/2022 07/18/2022 07/28/2022 12:1 6 AM PITCH FILLER COVID - 19 08/21/2022 08/21/2022 08/22/2022 8:31 AM CDT Respiratory Rule Out - RPA 08/21/2022 08/21/2022 0 08/22/2022 3:21 PM CDT COVID - 19 04/18/2023 04/18/2023 04/28/2023 12:1 6 AM PITCH FILLER COVID - 19 07/13/2023 07/13/2023 07/23/2023 12:1 6 AM PITCH FILLER Respiratory Rule Out - RPA 03/17/2024 03/17/2024 1 3:36 PM CDT COVID - 19 04/27/2024 04/27/2024 04/27/2024 2:19 PM PITCH FILLER Respiratory Rule-Out 07/24/2024 07/24/2024 2:29 PM PITCH FILLER COVID - 19 07/24/2024 07/24/2024 07/24/2024 2:29 PM PITCH FILLER COVID - 19 08/22/2024 08/22/2024 08/22/2024 11:4 6 PM CDT COVID - 19 09/03/2024 09/03/2024 09/03/2024 12:4 7 PM CDT Assessment Noted Time PHQ-9 Depression Total Score: 2 06/07/19 2:34 PM PITCH FILLER documented as of this encounter Care Teams Home Decorator Relationship Specialty Start Date End Date Keith Craft MD PCP - General Family Medicine 01/14/19 12/26/23 Liz Capellan DO 2 [facility] [address] [place] [address] PCP - General Family Medicine 12/27/23 Quang Locke DO Gastroenterology 01/18/16 Bri Rollins RN [place] Industrial Manufacturing Technician 03/07/21 05/22/23 [place] [address] [address] 05/25/21 Bri Rollins, RN [place] Nurse Industrial Manufacturing Technician 03/07/21 05/23/23 Werner Swift MD #2 [place] [address] Consulting Physician Pulmonary Disease 01/30/22 Yasmin Restrepo MD #[address] [address] Consulting Physician Endocrinology 07/20/24 Jose Do MD #[address] [address] Consulting Physician Colon and Rectal Surgery 10/12/24 documented as of this encounter
--- OUTSIDE RECORDS SUMMARY | 2025-03-23 14:58 | XMS_ITS | Encounter Summary ---
Author Organization [facility] Address [address] [place] [address] Phone Care Team Providers Care Director Of Curriculum Name Role Phone Quang Locke Unavailable [phone] Keith Craft MD Primary Care Provider [phone] Bri Rollins RN Unavailable Unavailable Silvio Schulte MD Unavailable [phone] Bri Rollins RN Unavailable Unavailable Werner Swift MD Unavailable Liz Capellan DO Primary Care Provider [phone] Yasmin Restrepo MD Unavailable Jose Do MD Unavailable Reason for Visit * Reason Comments Medication Refill Encounter Details Date Type Department Care Team (Late st Contact Info) Description 03/19/2022 Refill [facility] #2 [place] [address] Keith Craft MD #1 [place] [address] Medication Refill Social History Tobacco [...] st Contact Info) Description 04/26/2025 1:30 PM CAD OPERATOR Office Visit [facility] Medical [facility] - Pulmonology & Sleep Medicine [facility] #2 [place] [address] Werner Swift MD #2 [place] [address] 05/31/2025 1:20 PM CAD OPERATOR Office Visit [facility] Medical [facility] - Family Medicine [facility] #2 [place] [address] Liz Capellan, DO [address] [address] 06/02/2025 1:30 PM CAD OPERATOR Office Visit [facility] - Endocrinology - [place] [address] [place] [address] Yasmin Restrepo MD #[address] [place] [address] [phone] documented as of this encounter Goals Goal [...] Zones/Action plan education. I will notify my Fishing Hand if my symptoms fall in the [...] 04/20/2022 04/20/2022 04/30/2022 12:1 8 AM CAD OPERATOR COVID - 19 07/18/2022 07/18/2022 07/28/2022 12:1 6 AM CAD OPERATOR COVID - 19 08/21/2022 08/21/2022 08/22/2022 8:31 AM CDT Respiratory Rule Out - RPA 08/21/2022 08/21/2022 0 08/22/2022 3:21 PM CDT COVID - 19 04/18/2023 04/18/2023 04/28/2023 12:1 6 AM CAD OPERATOR COVID - 19 07/13/2023 07/13/2023 07/23/2023 12:1 6 AM CAD OPERATOR Respiratory Rule Out - RPA 03/17/2024 03/17/2024 1 3:36 PM CDT COVID - 19 04/27/2024 04/27/2024 04/27/2024 2:19 PM CAD OPERATOR Respiratory Rule-Out 07/24/2024 07/24/2024 025 2:29 PM CAD OPERATOR COVID - 19 07/24/2024 07/24/2024 07/24/2024 2:29 PM CAD OPERATOR COVID - 19 08/22/2024 08/22/2024 08/22/2024 11:4 6 PM CDT COVID - 19 09/03/2024 09/03/2024 09/03/2024 12:4 7 PM CDT Assessment Noted Time PHQ-9 Depression Total Score: 1 03/07/20 21 10:29 AM CDT documented as of this encounter Care Teams Director Of Curriculum Relationship Specialty Start Date End Date Keith Craft MD PCP - General Family Medicine 01/14/19 12/26/23 Liz Capellan DO 2 [facility] [place] [address] [address] PCP - General Family Medicine 12/27/23 Quang Locke DO Gastroenterology 01/18/16 Bri Rollins, RN [place] Fishing Hand 03/07/21 05/22/23 [place] [id number] [address] 05/25/21 Bri Rollins RN [place] Nurse Fishing Hand 03/07/21 05/23/23 Werner Swift MD #2 [place] [address] Consulting Physician Pulmonary Disease 01/30/22 Yasmin Restrepo MD #[address] [phone] Consulting Physician Endocrinology 07/20/24 Jose Do MD #[address] [id number] Consulting Physician Colon and Rectal Surgery 10/12/24 documented as of this encounter
--- OUTSIDE RECORDS SUMMARY | 2025-03-23 14:58 | XMS_ITS | Encounter Summary ---
Author Organization [facility] Address [address] [place] [address] Phone Care Team Providers Care Dietitian Teaching Name Role Phone Quang Locke Unavailable [phone] Keith Craft MD Primary Care Provider [phone] Silvio Schulte MD Unavailable [phone] Werner Swift MD Unavailable Liz Capellan DO Primary Care Provider [phone] Yasmin Restrepo MD Unavailable Jose Do MD Unavailable Reason for Visit * Reason Comments Medication Refill Encounter Details Date Type Department Care Team (Late st Contact Info) Description 08/12/2023 Refill [facility] #2 [place] [address] Keith Craft MD #1 [place] [address] Medication Refill Social History Tobacco Use Types [...] Total Score - Questions 1-9 0 08/2021 [facility] of Occupat ional Health - Occupational Stress [...] 325 MG-10 MG 45 0 15 , [facility]... OXYCODONE HCL-ACETAMINOPHEN 06/19/2023 06/18/2023 325 MG-10 MG 25 0 8 , [facility]... OXYCODONE HCL-ACETAMINOPHEN 06/13/2023 06/13/2023 325 MG-5 MG 45 0 15 , [facility]... Pt has been taking Oxycodone. documented in this encounter Plan of Treatment Upcoming Encounters Date Type Department Care Team (Late st Contact Info) Description 04/26/2025 1:30 PM PSYCHIATRIC SECURITY NURSE Office Visit [facility] - Pulmonology & Sleep Medicine [facility] #2 [place] [address] Werner Swift MD #2 [place] [address] 05/31/2025 1:20 PM PSYCHIATRIC SECURITY NURSE Office Visit [facility] - Family Medicine - [place] #2 [place] [address] Liz Capellan, DO [address] [address] 06/02/2025 1:30 PM PSYCHIATRIC SECURITY NURSE Office Visit [facility] - Endocrinology - [place] #2 [place] [address] Yasmin Restrepo MD #2 [facility] [address] [place] [address] documented as of this encounter Goals Goal [...] Zones/Action plan education. I will notify my Bail Bondsman if my symptoms fall in the y [...] - 19 04/27/2024 04/27/2024 04/27/2024 2:19 PM PSYCHIATRIC SECURITY NURSE Respiratory Rule-Out 07/24/2024 07/24/2024 025 2:29 PM PSYCHIATRIC SECURITY NURSE COVID - 19 07/24/2024 07/24/2024 07/24/2024 2:29 PM PSYCHIATRIC SECURITY NURSE COVID - 19 08/22/2024 08/22/2024 08/22/2024 11:4 6 PM CDT COVID - 19 09/03/2024 09/03/2024 09/03/2024 12:4 7 PM CDT Assessment Noted Time PHQ-9 Depression Total Score: 1 03/07/20 21 10:29 AM CDT documented as of this encounter Care Teams Dietitian Teaching Relationship Specialty Start Date End Date Keith Craft MD PCP - General Family Medicine 01/14/19 12/26/23 Liz Capellan DO [address] [id number] PCP - General Family Medicine 12/27/23 Quang Locke DO Gastroenterology 01/18/16 [place] [id number] [address] 05/25/21 Werner Swift MD #2 [place] [address] Consulting Physician Pulmonary Disease 01/30/22 Yasmin Restrepo MD #[address] [phone] Consulting Physician Endocrinology 07/20/24 Jose Do MD #2 [facility] [address] [address] Consulting Physician Colon and Rectal Surgery 10/12/24 documented as of this encounter
--- OUTSIDE RECORDS SUMMARY | 2025-03-23 14:58 | XMS_ITS | Encounter Summary ---
Author Organization [facility] Address [address] [place] [address] Phone Care Team Providers Care Freight Brake Operator Name Role Phone Quang Locke Unavailable [phone] Keith Craft MD Primary Care Provider [phone] Bri Rollins RN Unavailable Unavailable Silvio Schulte MD Unavailable [phone] Bri Rollins RN Unavailable Unavailable Werner Swift MD Unavailable Liz Capellan DO Primary Care Provider [phone] Yasmin Restrepo MD Unavailable Jose Do MD Unavailable Reason for Visit * Reason Comments Medication Refill Encounter Details Date Type Department Care Team (Late st Contact Info) Description 02/13/2022 Refill [facility] Medicine [facility] #2 [place] [address] Keith Craft MD #1 [place] [address] Medication Refill Social History Tobacco [...] [place] 09/08/21 Office Visit Brie Denis, [facility] [place] Showing recent visits within past 182 [...] [place] 05/25/21 Office Visit Marcin Anderson APRN, PIECE DYE WORKER [facility] [place] 05/05/21 Office Visit Brie Denis, PAC [facility] [place] 04/14/21 Office Visit Keith Craft MD [facility] [...] st Contact Info) Description 04/26/2025 1:30 PM AGRICULTURAL REAL ESTATE AGENT Office Visit [facility] - Pulmonology & Sleep Medicine - [place] #2 [place] [address] Werner Swift MD #2 [place] [address] 05/31/2025 1:20 PM AGRICULTURAL REAL ESTATE AGENT Office Visit [facility] - Family Medicine - [place] #2 [place] [address] Liz Capellan, DO 2 [facility] [address] [place] [address] 06/02/2025 1:30 PM AGRICULTURAL REAL ESTATE AGENT Office Visit [facility] Endocrinology - [place] #2 [place] [address] Yasmin Restrepo MD #[address] [address] documented as of this encounter Goals Goal [...] Zones/Action plan education. I will notify my Technical Support Technician if my symptoms fall in the [...] 19 04/20/2022 04/20/2022 04/30/2022 12:1 8 AM AGRICULTURAL REAL ESTATE AGENT COVID - 19 07/18/2022 07/18/2022 07/28/2022 12:1 6 AM AGRICULTURAL REAL ESTATE AGENT COVID - 19 08/21/2022 08/21/2022 08/22/2022 8:31 AM CDT Respiratory Rule Out - RPA 08/21/2022 08/21/2022 0 08/22/2022 3:21 PM CDT COVID - 19 04/18/2023 04/18/2023 04/28/2023 12:1 6 AM AGRICULTURAL REAL ESTATE AGENT COVID - 19 07/13/2023 07/13/2023 07/23/2023 12:1 6 AM AGRICULTURAL REAL ESTATE AGENT Respiratory Rule Out - RPA 03/17/2024 03/17/2024 1 3:36 PM CDT COVID - 19 04/27/2024 04/27/2024 04/27/2024 2:19 PM AGRICULTURAL REAL ESTATE AGENT Respiratory Rule-Out 07/24/2024 07/24/2024 025 2:29 PM AGRICULTURAL REAL ESTATE AGENT COVID - 19 07/24/2024 07/24/2024 07/24/2024 2:29 PM AGRICULTURAL REAL ESTATE AGENT COVID - 19 08/22/2024 08/22/2024 08/22/2024 11:4 6 PM CDT COVID - 19 09/03/2024 09/03/2024 09/03/2024 12:4 7 PM CDT Assessment Noted Time PHQ-9 Depression Total Score: 1 03/07/20 21 10:29 AM CDT documented as of this encounter Care Teams Freight Brake Operator Relationship Specialty Start Date End Date Keith Craft MD PCP - General Family Medicine 01/14/19 12/26/23 Liz Capellan DO 2 [facility] [address] [place] [address] PCP - General Family Medicine 12/27/23 Quang Locke DO Gastroenterology 01/18/16 Bri Rollins, KATEY [place] Technical Support Technician 03/07/21 05/22/23 [place] [address] [address] 05/25/21 Bri Rollins, RN [place] Nurse Technical Support Technician 03/07/21 05/23/23 Werner Swift MD #2 [place] [address] Consulting Physician Pulmonary Disease 01/30/22 Yasmin Restrepo MD #[address] [address] Consulting Physician Endocrinology 07/20/24 Jose Do MD #[address] [address] Consulting Physician Colon and Rectal Surgery 10/12/24 documented as of this encounter
--- OUTSIDE RECORDS SUMMARY | 2025-03-23 14:58 | XMS_ITS | Encounter Summary ---
Author Organization [facility] Address [address] [place] [address] Phone Care Team Providers Care Welding Operator Name Role Phone Quang Locke Unavailable [phone] Keith Craft MD Primary Care Provider Bri Rollins RN Unavailable Unavailable Silvio Schulte MD Unavailable [phone] Bri Rollins RN Unavailable Unavailable Werner Swift MD Unavailable Liz Capellan DO Primary Care Provider [phone] Yasmin Restrepo MD Unavailable Jose Do MD Unavailable Reason for Visit * Reason Comments Medication Refill Encounter Details Date Type Department Care Team (Late st Contact Info) Description 02/27/2022 Refill [facility] #2 [place] [address] Keith Craft MD #1 [place] [address] Medication Refill Social History Tobacco [...] [facility] [place] 09/08/21 Office Visit Brie Denis, [facility] [place] 08/14/21 Office Visit Keith Craft MD [facility] [place] 07/31/21 Office Visit Keith Craft MD [facility] [place] 05/25/21 Office Visit Marcin Anderson, FRUIT RANCHER, OCEANOGRAPHIC METEOROLOGIST [facility] 05/05/21 Office Visit Brie Denis, PAC [facility] [place] 04/14/21 Office Visit Keith [facility] 03/23/21 Office Visit Keith Craft MD [facility] Showing recent visits within past 365 days and meeting all other requirements Future Appointments Date Type Provider Dept 03/02/22 Appointment Keith [facility] MD [facility] 03/02/22 Appointment [facility] 03/09/22 Appointment Keith [facility] MD [facility] Showing future appointments within next 90 days and meeting all other requirements documented in this encounter Plan of Treatment Upcoming Encounters Date Type Department Care Team (Late st Contact Info) Description 04/26/2025 1:30 PM ACTIONSCRIPT DEVELOPER Office Visit [facility] - Pulmonology & Sleep Medicine - [place] #2 [place] [address] Werner Swift MD #2 [place] [address] 05/31/2025 1:20 PM ACTIONSCRIPT DEVELOPER Office Visit [facility] Medical [facility] - Family Medicine - [place] #2 [place] [address] Liz Capellan, DO [address] [address] 06/02/2025 1:30 PM ACTIONSCRIPT DEVELOPER Office Visit [facility] Medical [facility] - Endocrinology - [place] #2 [facility] [place] [address] Yasmin Restrepo MD #[address] [place] [address] [phone] (work) documented as of this encounter Goals [...] plan education. I will notify my Client Project Coordinator if my symptoms fall in the [...] 19 04/20/2022 04/20/2022 04/30/2022 12:1 8 AM ACTIONSCRIPT DEVELOPER COVID - 19 07/18/2022 07/18/2022 07/28/2022 12:1 6 AM ACTIONSCRIPT DEVELOPER COVID - 19 08/21/2022 08/21/2022 08/22/2022 8:31 AM CDT Respiratory Rule Out - RPA 08/21/2022 08/21/2022 0 08/22/2022 3:21 PM CDT COVID - 19 04/18/2023 04/18/2023 04/28/2023 12:1 6 AM ACTIONSCRIPT DEVELOPER COVID - 19 07/13/2023 07/13/2023 07/23/2023 12:1 6 AM ACTIONSCRIPT DEVELOPER Respiratory Rule Out - RPA 03/17/2024 03/17/2024 1 3:36 PM CDT COVID - 19 04/27/2024 04/27/2024 04/27/2024 2:19 PM ACTIONSCRIPT DEVELOPER Respiratory Rule-Out 07/24/2024 07/24/2024 025 2:29 PM ACTIONSCRIPT DEVELOPER COVID - 19 07/24/2024 07/24/2024 07/24/2024 2:29 PM ACTIONSCRIPT DEVELOPER COVID - 19 08/22/2024 08/22/2024 08/22/2024 11:4 6 PM CDT COVID - 19 09/03/2024 09/03/2024 09/03/2024 12:4 7 PM CDT Assessment Noted Time PHQ-9 Depression Total Score: 1 03/07/20 21 10:29 AM CDT documented as of this encounter Care Teams Welding Operator Relationship Specialty Start Date End Date Keith Craft MD PCP - General Family Medicine 01/14/19 12/26/23 Liz Capellan DO [address] [address] PCP - General Family Medicine 12/27/23 Quang Locke DO Gastroenterology 01/18/16 Bri Rollins, KATEY [place] Client Project Coordinator 03/07/21 05/22/23 [place] [address] [address] 05/25/21 Rollins, Bri M, RN [place] Nurse Client Project Coordinator 03/07/21 05/23/23 Werner Swift MD #2 [place] [address] Consulting Physician Pulmonary Disease 01/30/22 Yasmin Restrepo MD #[address] [address] Consulting Physician Endocrinology 07/20/24 Jose Do MD #[address] [phone] Consulting Physician Colon and Rectal Surgery 10/12/24 documented as of this encounter
--- OUTSIDE RECORDS SUMMARY | 2025-03-23 14:58 | XMS_ITS | Encounter Summary ---
Author Organization [facility] Address [address] [place] [address] Phone Care Team Providers Care Woodwork Salvage Inspector Name Role Phone Quang Locke Unavailable [phone] Keith Cratf MD Primary Care Provider [phone] Bri Rollins RN Unavailable Unavailable Silvio Schulte MD Unavailable [phone] Bri Rollins RN Unavailable Unavailable Werner Swift MD Unavailable Liz Capellan DO Primary Care Provider [phone] Yasmin Restrepo MD Unavailable Jose Do MD Unavailable Reason for Visit * Reason Comments Medication Refill Encounter Details Date Type Department Care Team (Late st Contact Info) Description 01/31/2022 Refill [facility] Medicine [facility] #2 [place] [address] Keith Craft MD #1 [place] [address] Medication Refill Social History Tobacco [...] [place] 07/31/21 Office Visit Keith Craft MD [facility] 05/25/21 Office Visit Marcin Anderson, RESERVATIONIST, SWEEPING COMPOUND BLENDER [facility] 05/05/21 Office [facility] Brie Denis, PAC [facility] 04/14/21 [facility] 03/23[facility] Office Visit Keith Craft MD [facility] Showing recent visits within past 365 days and meeting all other requirements Future Appointments Date Type Provider Dept 03/09/22 Appointment Keith Craft MD [facility] Showing future appointments within next 90 days and meeting all other requirements documented in this encounter Plan of Treatment Upcoming Encounters Date Type Department Care Team (Late st Contact Info) Description 04/26/2025 1:30 PM UTILITY OPERATOR YARN Office Visit [facility] - Pulmonology & Sleep Medicine [facility] #2 [place] [address] Werner Swift MD #2 [place] [address] 05/31/2025 1:20 PM UTILITY OPERATOR YARN Office Visit [facility] - Family Medicine - [place] #2 [place] [address] Liz Capellan, DO [address] [address] 06/02/2025 1:30 PM UTILITY OPERATOR YARN Office Visit [facility] - Endocrinology [facility] #2 [place] [address] Yasmin Restrepo MD #[address] [address] documented as of this encounter Goals Goal [...] plan education. I will notify my Veterinary Medicine Scientist if my symptoms fall in the [...] 04/20/2022 04/20/2022 04/30/2022 12:1 8 AM UTILITY OPERATOR YARN COVID - 19 07/18/2022 07/18/2022 07/28/2022 12:1 6 AM UTILITY OPERATOR YARN COVID - 19 08/21/2022 08/21/2022 08/22/2022 8:31 AM CDT Respiratory Rule Out - RPA 08/21/2022 08/21/2022 0 08/22/2022 3:21 PM CDT COVID - 19 04/18/2023 04/18/2023 04/28/2023 12:1 6 AM UTILITY OPERATOR YARN COVID - 19 07/13/2023 07/13/2023 07/23/2023 12:1 6 AM UTILITY OPERATOR YARN Respiratory Rule Out - RPA 03/17/2024 03/17/2024 1 3:36 PM CDT COVID - 19 04/27/2024 04/27/2024 04/27/2024 2:19 PM UTILITY OPERATOR YARN Respiratory Rule-Out 07/24/2024 07/24/2024 025 2:29 PM UTILITY OPERATOR YARN COVID - 19 07/24/2024 07/24/2024 07/24/2024 2:29 PM UTILITY OPERATOR YARN COVID - 19 08/22/2024 08/22/2024 08/22/2024 11:4 6 PM CDT COVID - 19 09/03/2024 09/03/2024 09/03/2024 12:4 7 PM CDT Assessment Noted Time PHQ-9 Depression Total Score: 1 03/07/20 10:29 AM CDT documented as of this encounter Care Teams Woodwork Salvage Inspector Relationship Specialty Start Date End Date Keith Craft MD PCP - General Family Medicine 01/14/19 12/26/23 Liz Capellan DO [address] [address] PCP - General Family Medicine 12/27/23 Quang Locke DO Gastroenterology 01/18/16 Bri Rollins RN [place] Veterinary Medicine Scientist 03/07/21 05/22/23 [place] [address] [address] 05/25/21 Bri Rollins RN [place] Nurse Veterinary Medicine Scientist 03/07/21 05/23/23 Werner Swift MD #2 [place] [address] Consulting Physician Pulmonary Disease 01/30/22 Yasmin Restrepo MD #[address] [address] Consulting Physician Endocrinology 07/20/24 Jose Do MD #[address] [address] Consulting Physician Colon and Rectal Surgery 10/12/24 documented as of this encounter
--- OUTSIDE RECORDS SUMMARY | 2025-03-23 14:58 | XMS_ITS | Encounter Summary ---
Author Organization [facility] Address [address] [place] [address] Phone Care Team Providers Care Plateman Name Role Phone Quang Locke Unavailable [phone] Keith Craft MD Primary Care Provider [phone] Bri Rollins RN Unavailable Unavailable Silvio Schulte MD Unavailable [phone] Bri Rollins RN Unavailable Unavailable Werner Swift MD Unavailable Liz Capellan DO Primary Care Provider [phone] Yasmin Restrepo MD Unavailable Jose Do MD Unavailable Reason for Visit * Reason Comments Medication Refill Encounter Details Date Type Department Care Team (Late st Contact Info) Description 09/12/2020 Refill [facility] #2 [place] [address] Keith Craft MD #1 [place] [address] Medication Refill Social History Tobacco [...] Pending Prescriptions Disp Refills ergocalciferol (VITAMIN D) 24964 UNIT Capsule [Pharmacy Med Name: VITAMIN D2 1.25MG(50,000 UNIT)] 12 Capsule 2 Sig: TAKE 1 CAPSULE BY MOUTH ONE TIME PER WEEK healthfinch Off-Protocol Failed - 09/12/2020 12:14 AM Failed - Medication not assigned to a protocol, review manually. Passed - Valid encounter within last 12 months Past Office Visits Recent Outpatient Visits 3 months ago Mixed hyperlipidemia [facility] Keith Lemus MD 4 months ago Pneumonia of right upper lobe due to infectious organism [facility] Keith Lemus MD 7 months ago Acute non-recurrent maxillary sinusitis [facility] Keith Lemus MD 10 months ago Chronic prescription opiate use [facility] Keith Lemus MD 1 year ago Coronary artery disease involving [place] coronary artery of [place] heart without angina pectoris [facility] Keith Lemus MD Upcoming Appointments Future Appointments In 3 weeks Keith Craft MD [facility] YULIA Mckeon CYBER DEFENSE INCIDENT RESPONDER - Recent and Past Visits Recent Visits Date Type Provider Dept 06/07/20 Office Visit [facility] 04/25/20 Office Visit [facility] 02/02/20 Office Visit [facility] 11/02/19 Office Visit Keith Craft MD [facility] 07/27/19 Office Visit Keith Craft MD [facility] 06/10/19 Office Visit Brie Denis, [facility] Showing recent visits within past 460 days with a meds authorizing provider and meeting all other requirements Future Appointments Date Type Provider Dept 10/04/20 Appointment Keith Craft MD [facility] Showing future appointments within next 90 days with a meds authorizing provider and meeting all other requirements documented in this encounter Plan of Treatment Upcoming Encounters Date Type Department Care Team (Late st Contact Info) Description 04/26/2025 1:30 PM ELECTRICAL INSTALLATION SUPERVISOR Office Visit [facility] - Pulmonology & Sleep Medicine - [place] #2 [facility] [place] [address] Werner Swift MD #2 [facility] [place] [phone] 05/31/2025 1:20 PM ELECTRICAL INSTALLATION SUPERVISOR Office Visit [facility] Medical [facility] - Family Medicine - [place] #[address] [facility] [place] [address] Liz Capellan, DO [address] [id number] 06/02/2025 1:30 PM ELECTRICAL INSTALLATION SUPERVISOR Office Visit [facility] - Endocrinology - [place] #2 [facility] [place] [address] Yasmin Restrepo MD #[address] [place] [address] documented as of this encounter Visit Diagnoses Not on filedocumented in this encounter Additional Health Concerns Infection Onset Date Last Indicated Resolved Time COVID - 19 01/25/2021 01/25/2021 01/31/2021 8:10 AM CDT Respiratory Rule Out - RPA 01/30/2021 01/30/2021 0 02/01/2021 12:45 AM CDT COVID - 19 07/23/2021 07/23/2021 07/24/2021 6:31 AM ELECTRICAL INSTALLATION SUPERVISOR COVID - 19 10/19/2021 10/19/2021 10/20/2021 7:45 AM CDT Respiratory Rule Out - RPA 10/19/2021 10/19/2021 0 10/20/2021 2:10 PM CDT Stenotrophomonas maltophilia Comment:Must have a follow up respiratory sample to remove isolation/infection flag. 10/20/2021 10/20/2021 COVID - 19 04/20/2022 04/20/2022 04/30/2022 12:1 8 AM ELECTRICAL INSTALLATION SUPERVISOR COVID - 19 07/18/2022 07/18/2022 07/28/2022 12:1 6 AM ELECTRICAL INSTALLATION SUPERVISOR COVID - 19 08/21/2022 08/21/2022 08/22/2022 8:31 AM CDT Respiratory Rule Out - RPA 08/21/2022 08/21/2022 0 08/22/2022 3:21 PM CDT COVID - 19 04/18/2023 04/18/2023 04/28/2023 12:1 6 AM ELECTRICAL INSTALLATION SUPERVISOR COVID - 19 07/13/2023 07/13/2023 07/23/2023 12:1 6 AM ELECTRICAL INSTALLATION SUPERVISOR Respiratory Rule Out - RPA 03/17/2024 03/17/2024 1 3:36 PM CDT COVID - 19 04/27/2024 04/27/2024 04/27/2024 2:19 PM ELECTRICAL INSTALLATION SUPERVISOR Respiratory Rule-Out 07/24/2024 07/24/2024 025 2:29 PM ELECTRICAL INSTALLATION SUPERVISOR COVID - 19 07/24/2024 07/24/2024 07/24/2024 2:29 PM ELECTRICAL INSTALLATION SUPERVISOR COVID - 19 08/22/2024 08/22/2024 08/22/2024 11:4 6 PM CDT COVID - 19 09/03/2024 09/03/2024 09/03/2024 12:4 7 PM CDT Assessment Noted Time PHQ-9 Depression Total Score: 2 06/07/19 21 2:34 PM ELECTRICAL INSTALLATION SUPERVISOR documented as of this encounter Care Teams Plateman Relationship Specialty Start Date End Date Keith Craft MD PCP - General Family Medicine 01/14/19 12/26/23 Liz Capellan DO [address] [address] PCP - General Family Medicine 12/27/23 Quang Locke DO Gastroenterology 01/18/16 Bri Rollins RN [place] Winch Operator 03/07/21 05/22/23 [place] [id number] [address] 05/25/21 Bri Rollins RN [place] Nurse Winch Operator 03/07/21 05/23/23 Werner Swift MD #2 [place] [address] Consulting Physician Pulmonary Disease 01/30/22 Yasmin Restrepo MD #[address] [phone] Consulting Physician Endocrinology 07/20/24 Jose Do MD #2 [facility] [address] [address] Consulting Physician Colon and Rectal Surgery 10/12/24 documented as of this encounter
--- OUTSIDE RECORDS SUMMARY | 2025-03-23 14:58 | XMS_ITS | Encounter Summary ---
Author Organization [facility] Address [address] [place] [address] Phone Care Team Providers Care Laborer Landscape Name Role Phone Quang Locke Unavailable [phone] Keith Craft MD Primary Care Provider [phone] Bri Rollins RN Unavailable Unavailable Silvio Schulte MD Unavailable Bri Rollins RN Unavailable Unavailable Werner Swift MD Unavailable Liz Capellan DO Primary Care Provider [phone] Yasmin Restrepo MD Unavailable Jose Do MD Unavailable Reason for Visit * Reason Comments Medication Refill Encounter Details Date Type Department Care Team (Late st Contact Info) Description 01/01/2022 Refill [facility] Medicine [facility] #2 [place] [address] Keith Craft MD #1 [place] [address] Medication Refill Social History Tobacco [...] [facility] 05/25/21 Office Visit Marcin Anderson, LATIN DANCE INSTRUCTOR, ERECTOR OPERATOR [facility] [place] 05/05/21 Office Visit Brie Denis, PAC [facility] [place] 04/14/21 Office Visit [facility] 03/23/21 Office Visit Keith Craft MD [facility] Showing recent visits within past 365 days and meeting all other requirements Future Appointments Date Type Provider Dept 03/09/22 Appointment Keith Craft MD [facility] Showing future appointments within next 90 days and meeting all other requirements documented in this encounter Plan of Treatment Upcoming Encounters Date Type Department Care Team (Late st Contact Info) Description 04/26/2025 1:30 PM MAINTENANCE PARTS TECHNICIAN Office Visit [facility] Medical [facility] - Pulmonology & Sleep Medicine - [place] #2 [place] [address] Werner Swift MD #2 [place] [address] 05/31/2025 1:20 PM MAINTENANCE PARTS TECHNICIAN Office Visit [facility] Medical [facility] - Family Medicine - [place] #2 [facility] [place] [address] Liz Capellan, DO 2 [facility] [address] [place] [address] 06/02/2025 1:30 PM MAINTENANCE PARTS TECHNICIAN Office Visit [facility] - Endocrinology - [place] #2 [place] [address] Yasmin Restrepo MD #[address] [place] [address] documented as of this encounter Goals Goal [...] Zones/Action plan education. I will notify my Counter Control Operator if my symptoms fall in the [...] 19 04/20/2022 04/20/2022 04/30/2022 12:1 8 AM MAINTENANCE PARTS TECHNICIAN COVID - 19 07/18/2022 07/18/2022 07/28/2022 12:1 6 AM MAINTENANCE PARTS TECHNICIAN COVID - 19 08/21/2022 08/21/2022 08/22/2022 8:31 AM CDT Respiratory Rule Out - RPA 08/21/2022 08/21/2022 0 08/22/2022 3:21 PM CDT COVID - 19 04/18/2023 04/18/2023 04/28/2023 12:1 6 AM MAINTENANCE PARTS TECHNICIAN COVID - 19 07/13/2023 07/13/2023 07/23/2023 12:1 6 AM MAINTENANCE PARTS TECHNICIAN Respiratory Rule Out - RPA 03/17/2024 03/17/2024 1 3:36 PM CDT COVID - 19 04/27/2024 04/27/2024 04/27/2024 2:19 PM MAINTENANCE PARTS TECHNICIAN Respiratory Rule-Out 07/24/2024 07/24/2024 025 2:29 PM MAINTENANCE PARTS TECHNICIAN COVID - 19 07/24/2024 07/24/2024 07/24/2024 2:29 PM MAINTENANCE PARTS TECHNICIAN COVID - 19 08/22/2024 08/22/2024 08/22/2024 11:4 6 PM CDT COVID - 19 09/03/2024 09/03/2024 09/03/2024 12:4 7 PM CDT Assessment Noted Time PHQ-9 Depression Total Score: 1 03/07/20 21 10:29 AM CDT documented as of this encounter Care Teams Laborer Landscape Relationship Specialty Start Date End Date Keith Craft MD PCP - General Family Medicine 01/14/19 12/26/23 Liz Capellan DO [address] [address] PCP - General Family Medicine 12/27/23 Quang Locke DO Gastroenterology 01/18/16 Bri Rollins RN [place] Counter Control Operator 03/07/21 05/22/23 [place] [address] [address] 05/25/21 Bri Rollins RN [place] Nurse Counter Control Operator 03/07/21 05/23/23 Werner Swift MD #2 [place] [address] Consulting Physician Pulmonary Disease 01/30/22 Yasmin Restrepo MD #[address] [address] Consulting Physician Endocrinology 07/20/24 Jose Do MD #[address] [address] Consulting Physician Colon and Rectal Surgery 10/12/24 documented as of this encounter
--- OUTSIDE RECORDS SUMMARY | 2025-03-23 14:58 | XMS_ITS | Encounter Summary ---
Author Organization [facility] Address [address] [place] [address] Phone Care Team Providers Care Breakfast Hostess Name Role Phone Quang Locke Unavailable [phone] Keith Craft MD Primary Care Provider [phone] Bri Rollins RN Unavailable Unavailable Silvio Schulte MD Unavailable [phone] Bri Rollins RN Unavailable Unavailable Werner Swift MD Unavailable Liz Capellan DO Primary Care Provider [phone] Yasmin Restrepo MD Unavailable Jose Do MD Unavailable Reason for Visit * Reason Comments Medication Refill Encounter Details Date Type Department Care Team (Late st Contact Info) Description 08/30/2022 Refill [facility] - Family Medicine [facility] #2 [place] [address] Keith Craft MD #1 [place] [address] Medication Refill Social History Tobacco [...] Refills Insulin Pen Needle (UltiCare Mini Pen Tridell) 31G X 6 MM Misc [Pharmacy Med Name: ULTICARE MINI PEN NEEDLES/31G X 6MM 05VL0UC MISC] 300 Each 1 Sig: USE WITH INSULIN THREE (3) TIMES DAILY Diabetic Supplies Protocol Passed - 08/30/2022 9:45 AM Passed - Visit with relevant provider in past 6 months Recent Visits Date Type Provider Dept 07/18/22 Office Visit Kerri Kauffman, WIRE SPRING RELAY ADJUSTER, BLOOD OR BLOOD BANK TECHNICIAN [facility] 06/07/22 Office Visit Keith Craft MD [facility] 03/02/22 Procedure Visit [facility] [place] [place] [facility] 03/02/22 Office Visit Keith Craft MD [facility] Showing recent visits within past 182 days and meeting all other requirements Future Appointments Date Type Provider Dept 09/10/22 Appointment Keith Craft MD [facility] Showing future appointments within next [...] Dept 07/18/22 Office Visit Kerri Kauffman APRN, BLOOD OR BLOOD BANK TECHNICIAN [facility] 06/07/22 Office Visit Keith Craft MD [facility] 03/02/22 Procedure [facility] 03/02/22 [facility] 11/03/21 Office Visit Keith Craft MD [facility] 10/19/21 Office [facility] 10/05/21 Office [facility] 09/08/21 Office [facility] Brie Denis [facility] Showing recent visits within past 365 days and meeting all other requirements Future Appointments Date Type Provider Dept 09/10/22 Appointment Keith Craft MD [facility] Showing future appointments within next [...] Dept 07/18/22 Office Visit Kerri Kauffman APRN, [facility] [place] 06/07/22 Office Visit Keith Craft MD [facility] 03/02/22 Procedure Visit [facility] DIABET[facility] RETINAL [facility]AG[facility] [place] [place] [facility] 03/02/22 Office Visit Keith Craft MD [facility] [place] [place] [facility] 11/03/21 Office Visit Keith Craft MD [facility] [place] [place] 10/19/21 Office Visit Keith Craft MD [facility] [place] [place] [facility] 10/05/21 Office Visit Keith Craft MD [facility] [place] [place] 09/08/21 [facility] visits within past 365 days and meeting all other requirements Future Appointments Date Type Provider Dept 09/10/22 Appointment Keith [facility] MD [facility] Show[facility] future appointments within next 90 days and meeting all other requirements documented in this encounter Plan of Treatment Upcoming Encounters Date Type Department Care Team (Late st Contact Info) Description 04/26/2025 1:30 PM SEARCH DIRECTOR Office Visit [facility] - Pulmonology & Sleep Medicine - [place] #2 [place] [address] Werner Swift MD #2 [place] [address] 05/31/2025 1:20 PM SEARCH DIRECTOR Office Visit [facility] Medical [facility] - Family Medicine - [place] #2 [place] [address] Liz Capellan, DO [address] [address] 06/02/2025 1:30 PM SEARCH DIRECTOR Office Visit [facility] - Endocrinology - [place] #2 [place] [address] Yasmin Restrepo MD #[address] [phone] documented as of this encounter Goals Goal [...] Zones/Action plan education. I will notify my Retail Worker if my symptoms fall in the y ellow zone . I will consider receiving an influenza and pneumonia vaccination, if applicable. -I will call the office if I experience any symptoms listed above to discuss at home management options. documented as of this encounter Visit Diagnoses Diagnosis Type 2 diabetes mellitus with diabetic neuropathy, with long-term current use of insulin Chronic low back pain, unspecified back pain laterality, unspecified whether sciatica present Anxiety and depression Dysthymic disorder documented in this encounter Additional Health Concerns Infection Onset Date Last Indicated Resolved Time Stenotrophomonas maltophilia Comment:Must have a follow up respiratory sample to remove isolation/infection flag. 10/20/2021 10/20/2021 COVID - 19 04/18/2023 04/18/2023 04/28/2023 12:1 6 AM SEARCH DIRECTOR COVID - 19 07/13/2023 07/13/2023 07/23/2023 12:1 6 AM SEARCH DIRECTOR Respiratory Rule Out - RPA 03/17/2024 03/17/2024 1 3:36 PM CDT COVID - 19 04/27/2024 04/27/2024 04/27/2024 2:19 PM SEARCH DIRECTOR Respiratory Rule-Out 07/24/2024 07/24/2024 025 2:29 PM SEARCH DIRECTOR COVID - 19 07/24/2024 07/24/2024 07/24/2024 2:29 PM SEARCH DIRECTOR COVID - 19 08/22/2024 08/22/2024 08/22/2024 11:4 6 PM CDT COVID - 19 09/03/2024 09/03/2024 09/03/2024 12:4 7 PM CDT Assessment Noted Time PHQ-9 Depression Total Score: 1 03/07/20 21 10:29 AM CDT documented as of this encounter Care Teams Breakfast Hostess Relationship Specialty Start Date End Date Keith Craft MD PCP - General Family Medicine 01/14/19 12/26/23 Liz Capellan DO [address] [address] PCP - General Family Medicine 12/27/23 Quang Locke DO Gastroenterology 01/18/16 Bri Rollins RN [place] Retail Worker 03/07/21 05/22/23 [place] [address] [address] 05/25/21 Bri Rollins RN [place] Nurse Retail Worker 03/07/21 05/23/23 Werner Swift MD #2 [place] [address] Consulting Physician Pulmonary Disease 01/30/22 Yasmin Restrepo MD #[address] [address] Consulting Physician Endocrinology 07/20/24 Jose Do MD #[address] [address] Consulting Physician Colon and Rectal Surgery 10/12/24 documented as of this encounter
--- OUTSIDE RECORDS SUMMARY | 2025-03-23 14:58 | XMS_ITS | Encounter Summary ---
Author Organization [facility] Address [address] [place] [address] Phone Care Team Providers Care Plant Protection Supervisor Name Role Phone Quang Locke Unavailable [phone] Keith Craft MD Primary Care Provider [phone] Bri Rollins RN Unavailable Unavailable Silvio Schulte MD Unavailable [phone] Bri Rollins RN Unavailable Unavailable Werner Swift MD Unavailable Liz Capellan DO Primary Care Provider [phone] Yasmin Restrepo MD Unavailable Jose Do MD Unavailable Reason for Visit * Reason Comments Medication Refill Encounter Details Date Type Department Care Team (Late st Contact Info) Description 07/28/2020 Refill [facility] - [facility] Medicine [facility] [place] #2 [place] [address] Keith Craft MD #1 [place] [address] Medication Refill Social History Tobacco [...] COVID-19? No / Unsure 07/30/2020 3:25 PM AERIAL TRAM OPERATOR documented as of this encounter Miscellaneous [...] 1 month ago Mixed hyperlipidemia [facility] - Family Medicine Keith Lemus MD 3 months ago Pneumonia of right upper lobe due to infectious organism [facility] Keith Lemus MD 5 months ago Acute non-recurrent maxillary sinusitis [facility] Keith Lemus MD 8 months ago Chronic prescription opiate use [facility] Keith Lemus MD 1 year ago Coronary artery disease involving [place] coronary artery of [place] heart without angina pectoris [facility] Keith Lemus MD Upcoming Appointments Future Appointments In 2 days [facility] Family [facility] [place] [address], [place] In 2 months Keith Craft MD [facility] [place] COSMETIC CONSULTANT - Recent and Past Visits Recent Visits Date Type Provider Dept 06/07/20 Office Visit Keith Craft MD [facility] 04/25/20 Office Visit Keith Craft, [facility] 02/02/20 Office Visit Keith Craft MD [facility] 11/02/19 Office Visit Keith Craft MD [facility] 07/27/19 Office Visit Keith Craft MD [facility] 06/10/19 Office Visit Brie Denis PAC [facility] [place] Showing recent visits within past 460 days with a meds authorizing provider and meeting all other requirements Future Appointments Date Type Provider Dept 10/04/20 Appointment Keith Craft MD [facility] [place] Showing future appointments within next 90 days with a meds authorizing provider and meeting all other requirements AL TRAM OPERATOR documented in this encounter Plan of Treatment Upcoming Encounters Date Type Department Care Team (Late st Contact Info) Description 04/26/2025 1:30 PM AERIAL TRAM OPERATOR [facility] - [place] #2 [place] [address] Werner Swift MD #2 [place] [address] 05/31/2025 1:20 PM AERIAL TRAM OPERATOR Office Visit [facility] [place] [place] #2 [place] [address] Liz Capellan, DO [address] [address] 06/02/2025 1:30 PM AERIAL TRAM OPERATOR Office Visit [facility] - Endocrinology - [place] #[address] [place] [phone] Yasmin Restrepo MD #[address] [phone] documented as of this encounter Visit Diagnoses Diagnosis Anxiety and depression Dysthymic disorder documented in this encounter Additional Health Concerns Infection Onset Date Last Indicated Resolved Time COVID - 19 01/25/2021 01/25/2021 01/31/2021 8:10 AM CDT Respiratory Rule Out - RPA 01/30/2021 01/30/2021 0 02/01/2021 12:45 AM CDT COVID - 19 07/23/2021 07/23/2021 07/24/2021 6:31 AM AERIAL TRAM OPERATOR COVID - 19 10/19/2021 10/19/2021 10/20/2021 7:45 AM CDT Respiratory Rule Out - RPA 10/19/2021 10/19/2021 0 10/20/2021 2:10 PM CDT Stenotrophomonas maltophilia Comment:Must have a follow up respiratory sample to remove isolation/infection flag. 10/20/2021 10/20/2021 COVID - 19 04/20/2022 04/20/2022 04/30/2022 12:1 8 AM AERIAL TRAM OPERATOR COVID - 19 07/18/2022 07/18/2022 07/28/2022 12:1 6 AM AERIAL TRAM OPERATOR COVID - 19 08/21/2022 08/21/2022 08/22/2022 8:31 AM CDT Respiratory Rule Out - RPA 08/21/2022 08/21/2022 0 08/22/2022 3:21 PM CDT COVID - 19 04/18/2023 04/18/2023 04/28/2023 12:1 6 AM AERIAL TRAM OPERATOR COVID - 19 07/13/2023 07/13/2023 07/23/2023 12:1 6 AM AERIAL TRAM OPERATOR Respiratory Rule Out - RPA 03/17/2024 03/17/2024 1 3:36 PM CDT COVID - 19 04/27/2024 04/27/2024 04/27/2024 2:19 PM AERIAL TRAM OPERATOR Respiratory Rule-Out 07/24/2024 07/24/2024 025 2:29 PM AERIAL TRAM OPERATOR COVID - 19 07/24/2024 07/24/2024 07/24/2024 2:29 PM AERIAL TRAM OPERATOR COVID - 19 08/22/2024 08/22/2024 08/22/2024 11:4 6 PM CDT COVID - 19 09/03/2024 09/03/2024 09/03/2024 12:4 7 PM CDT Assessment Noted Time PHQ-9 Depression Total Score: 2 06/07/19 2:34 PM AERIAL TRAM OPERATOR documented as of this encounter Care Teams Plant Protection Supervisor Relationship Specialty Start Date End Date Keith Craft MD PCP - General Family Medicine 01/14/19 12/26/23 Liz Capellan DO [address] [address] PCP - General Family Medicine 12/27/23 Quang Locke DO Gastroenterology 01/18/16 Bri Rollins RN [place] Jigger Crown Pouncing Machine Operator 03/07/21 05/22/23 [place] [address] [address] 05/25/21 Bri Rollins RN [place] Nurse Jigger Crown Pouncing Machine Operator 03/07/21 05/23/23 Werner Swift MD #2 [place] [address] Consulting Physician Pulmonary Disease 01/30/22 Yasmin Restrepo MD #[address] [address] Consulting Physician Endocrinology 07/20/24 Jose Do MD #[address] [address] Consulting Physician Colon and Rectal Surgery 10/12/24 documented as of this encounter
--- OUTSIDE RECORDS SUMMARY | 2025-03-23 14:58 | XMS_ITS | Encounter Summary ---
Author Organization [facility] Address [address] [place] [address] Phone Care Team Providers Care Fabricator Artificial Breast Name Role Phone Quang Locke Unavailable [phone] Keith Craft MD Primary Care Provider [phone] Bri Rollins RN Unavailable Unavailable Silvio Schulte MD Unavailable [phone] Bri Rollins RN Unavailable Unavailable Werner Swift MD Unavailable Liz Capellan DO Primary Care Provider Yasmin Restrepo MD Unavailable Jose Do MD Unavailable Reason for Visit * Reason Comments Medication Refill Encounter Details Date Type Department Care Team (Late st Contact Info) Description 09/04/2022 Refill [facility] #2 [place] [address] Keith Craft MD #1 [place] [address] Medication Refill Social History Tobacco [...] Provider Dept 07/18/22 Office Visit Kerri Kauffman, PREDATOR CONTROL TRAPPER, LEGAL RESEARCHER [facility] 06[facility]07[facility]22 Office Visit Keith [facility] MD [facility] 03/02/22 Procedure Visit [facility] DI[facility]IC RETINAL IMAG[facility] [place] 03/02/22 Office Visit Keith Craft MD [facility] 11/03/21 Office Visit Keith Craft MD [facility] 10/19/21 Office Visit Keith Craft MD [facility] 10/05/21 Office Visit Keith Craft MD [facility] [place] 09/08/21 Office Visit Brie Denis PAC [facility] Showing recent visits within past 365 days and meeting all other requirements Future Appointments Date Type Provider Dept 09/10/22 Appointment Keith Craft MD [facility] Showing future appointments within next 90 days and meeting all other requirements documented in this encounter Plan of Treatment Upcoming Encounters Date Type Department Care Team (Late st Contact Info) Description 04/26/2025 1:30 PM REBAR WORKER Office Visit [facility] - Pulmonology & Sleep Medicine - [place] #2 [place] [address] Werner Swift MD #2 [place] [address] 05/31/2025 1:20 PM REBAR WORKER Office Visit [facility] - Family Medicine - [place] #2 [facility] [place] [facility] [place] [address] Liz Capellan, DO [address] [id number] 06/02/2025 1:30 PM REBAR WORKER Office Visit [facility] - Endocrinology - [place] #2 [place] [address] Yasmin Restrepo MD #[address] [place] [address] documented as of this encounter Goals Goal [...] Zones/Action plan education. I will notify my Cargo Vessel Stewardess if my symptoms fall in the y [...] 19 04/18/2023 04/18/2023 04/28/2023 12:1 6 AM REBAR WORKER COVID - 19 07/13/2023 07/13/2023 07/23/2023 12:1 6 AM REBAR WORKER Respiratory Rule Out - RPA 03/17/2024 03/17/2024 1 3:36 PM CDT COVID - 19 04/27/2024 04/27/2024 04/27/2024 2:19 PM REBAR WORKER Respiratory Rule-Out 07/24/2024 07/24/2024 025 2:29 PM REBAR WORKER COVID - 19 07/24/2024 07/24/2024 07/24/2024 2:29 PM REBAR WORKER COVID - 19 08/22/2024 08/22/2024 08/22/2024 11:4 6 PM CDT COVID - 19 09/03/2024 09/03/2024 09/03/2024 12:4 7 PM CDT Assessment Noted Time PHQ-9 Depression Total Score: 1 03/07/20 21 10:29 AM CDT documented as of this encounter Care Teams Fabricator Artificial Breast Relationship Specialty Start Date End Date Keith Craft MD PCP - General Family Medicine 01/14/19 12/26/23 Liz Capellan DO [address] [address] PCP - General Family Medicine 12/27/23 Quang Locke DO Gastroenterology 01/18/16 Bri Rollins, RN [place] Cargo Vessel Stewardess 03/07/21 05/22/23 [place] [id number] [address] 05/25/21 Bri Rollins, RN [place] Nurse Cargo Vessel Stewardess 03/07/21 05/23/23 Werner Swift MD #2 [place] [address] Consulting Physician Pulmonary Disease 01/30/22 Yasmin Restrepo MD #[address] [address] Consulting Physician Endocrinology 07/20/24 Jose Do MD #[address] [facility] [address] [address] Consulting Physician Colon and Rectal Surgery 10/12/24 documented as of this encounter
--- OUTSIDE RECORDS SUMMARY | 2025-03-23 14:58 | XMS_ITS | Encounter Summary ---
Author Organization [facility] Address [address] [place] [address] Phone Care Team Providers Care Inventory Control Clerk Name Role Phone Quang Locke Unavailable [phone] Keith Craft MD Primary Care Provider [phone] Bri Rollins RN Unavailable Unavailable Silvio Schulte MD Unavailable [phone] Bri Rollins RN Unavailable Unavailable Werner Swift MD Unavailable Liz Capellan DO Primary Care Provider [phone] Yasmin Restrepo MD Unavailable Jose Do MD Unavailable Reason for Visit * Reason Comments Medication Refill Encounter Details Date Type Department Care Team (Late st Contact Info) Description 01/04/2021 Refill [facility] #2 [place] [address] Keith Craft MD #1 [place] [address] Medication Refill Social History Tobacco [...] Mehta RN - 01/04/2021 11:15 AM CDT [place] PDMP last fill date 12/05/20 Medication failed [...] st Contact Info) Description 04/26/2025 1:30 PM CRUSHER PLANT OPERATOR Office Visit [facility] - Pulmonology & Sleep Medicine [facility] #2 [place] [address] Werner Swift MD #2 [place] [address] 05/31/2025 1:20 PM CRUSHER PLANT OPERATOR Office Visit [facility] - Family Medicine - [place] #2 [place] [address] Liz Capellan, DO 2 [facility]. [address] [place] [address] 06/02/2025 1:30 PM CRUSHER PLANT OPERATOR Office Visit [facility] - Endocrinology - [place] #[address] [place] [address] Yasmin Restrepo MD #[address] [facility] [address] [address] documented as of this encounter Visit Diagnoses Diagnosis Anxiety and depression Dysthymic disorder documented in this encounter Additional Health Concerns Infection Onset Date Last Indicated Resolved Time COVID - 19 01/25/2021 01/25/2021 01/31/2021 8:10 AM CDT Respiratory Rule Out - RPA 01/30/2021 01/30/2021 0 02/01/2021 12:45 AM CDT COVID - 19 07/23/2021 07/23/2021 07/24/2021 6:31 AM CRUSHER PLANT OPERATOR COVID - 19 10/19/2021 10/19/2021 10/20/2021 7:45 AM CDT Respiratory Rule Out - RPA 10/19/2021 10/19/2021 0 10/20/2021 2:10 PM CDT Stenotrophomonas maltophilia Comment:Must have a follow up respiratory sample to remove isolation/infection flag. 10/20/2021 10/20/2021 COVID - 19 04/20/2022 04/20/2022 04/30/2022 12:1 8 AM CRUSHER PLANT OPERATOR COVID - 19 07/18/2022 07/18/2022 07/28/2022 12:1 6 AM CRUSHER PLANT OPERATOR COVID - 19 08/21/2022 08/21/2022 08/22/2022 8:31 AM CDT Respiratory Rule Out - RPA 08/21/2022 08/21/2022 0 08/22/2022 3:21 PM CDT COVID - 19 04/18/2023 04/18/2023 04/28/2023 12:1 6 AM CRUSHER PLANT OPERATOR COVID - 19 07/13/2023 07/13/2023 07/23/2023 12:1 6 AM CRUSHER PLANT OPERATOR Respiratory Rule Out - RPA 03/17/2024 03/17/2024 1 3:36 PM CDT COVID - 19 04/27/2024 04/27/2024 04/27/2024 2:19 PM CRUSHER PLANT OPERATOR Respiratory Rule-Out 07/24/2024 07/24/2024 025 2:29 PM CRUSHER PLANT OPERATOR COVID - 19 07/24/2024 07/24/2024 07/24/2024 2:29 PM CRUSHER PLANT OPERATOR COVID - 19 08/22/2024 08/22/2024 08/22/2024 11:4 6 PM CDT COVID - 19 09/03/2024 09/03/2024 09/03/2024 12:4 7 PM CDT Assessment Noted Time PHQ-9 Depression Total Score: 2 06/07/19 2:34 PM CRUSHER PLANT OPERATOR documented as of this encounter Care Teams Inventory Control Clerk Relationship Specialty Start Date End Date Keith Craft MD PCP - General Family Medicine 01/14/19 12/26/23 Liz Capellan DO [address] [address] PCP - General Family Medicine 12/27/23 Quang Locke DO Gastroenterology 01/18/16 Bri Rollins RN [place] Clod Puller 03/07/21 05/22/23 [place] [address] [address] 05/25/21 Bri Rollins RN [place] Nurse Clod Puller 03/07/21 05/23/23 Werner Swift MD #2 [place] [address] Consulting Physician Pulmonary Disease 01/30/22 Yasmin Restrepo MD #[address] [address] Consulting Physician Endocrinology 07/20/24 Jose Do MD #[address] [address] Consulting Physician Colon and Rectal Surgery 10/12/24 documented as of this encounter
--- OUTSIDE RECORDS SUMMARY | 2025-03-23 14:58 | XMS_ITS | Encounter Summary ---
Author Organization [facility] Address [address] [place] [address] Phone Care Team Providers Care Retail Service Technician Name Role Phone Quang Locke Unavailable [phone] Keith Craft MD Primary Care Provider [phone] Bri Rollins RN Unavailable Unavailable Silvio Schulte MD Unavailable [phone] Bri Rollins RN Unavailable Unavailable Werner Swift MD Unavailable Liz Capellan DO Primary Care Provider [phone] Yasmin Restrepo MD Unavailable Jose Do MD Unavailable Reason for Visit * Reason Comments Medication Refill Encounter Details Date Type Department Care Team (Late st Contact Info) Description 09/22/2020 Refill [facility] - Family Medicine [facility] #2 [place] [address] Keith Craft MD #1 [place] [address] Medication Refill Social History Tobacco [...] st Contact Info) Description 04/26/2025 1:30 PM WIDE PIECE GOODS INSPECTOR Office Visit [facility] - Pulmonology & Sleep Medicine [facility] #2 [place] [address] Werner Swift MD #2 [place] [address] 05/31/2025 1:20 PM WIDE PIECE GOODS INSPECTOR Office Visit [facility] - Family Medicine [facility] #2 [place] [address] Liz Capellan, DO [address] [address] 06/02/2025 1:30 PM WIDE PIECE GOODS INSPECTOR Office Visit [facility] - Endocrinology - [place] #2 [place] [address] Yasmin Restrepo MD #[address] [place] [address] documented as of this encounter Visit Diagnoses Diagnosis Anxiety and depression Dysthymic disorder documented in this encounter Additional Health Concerns Infection Onset Date Last Indicated Resolved Time COVID - 19 01/25/2021 01/25/2021 01/31/2021 8:10 AM CDT Respiratory Rule Out - RPA 01/30/2021 01/30/2021 0 02/01/2021 12:45 AM CDT COVID - 19 07/23/2021 07/23/2021 07/24/2021 6:31 AM WIDE PIECE GOODS INSPECTOR COVID - 19 10/19/2021 10/19/2021 10/20/2021 7:45 AM CDT Respiratory Rule Out - RPA 10/19/2021 10/19/2021 0 10/20/2021 2:10 PM CDT Stenotrophomonas maltophilia Comment:Must have a follow up respiratory sample to remove isolation/infection flag. 10/20/2021 10/20/2021 COVID - 19 04/20/2022 04/20/2022 04/30/2022 12:1 8 AM WIDE PIECE GOODS INSPECTOR COVID - 19 07/18/2022 07/18/2022 07/28/2022 12:1 6 AM WIDE PIECE GOODS INSPECTOR COVID - 19 08/21/2022 08/21/2022 08/22/2022 8:31 AM CDT Respiratory Rule Out - RPA 08/21/2022 08/21/2022 0 08/22/2022 3:21 PM CDT COVID - 19 04/18/2023 04/18/2023 04/28/2023 12:1 6 AM WIDE PIECE GOODS INSPECTOR COVID - 19 07/13/2023 07/13/2023 07/23/2023 12:1 6 AM WIDE PIECE GOODS INSPECTOR Respiratory Rule Out - RPA 03/17/2024 03/17/2024 1 3:36 PM CDT COVID - 19 04/27/2024 04/27/2024 04/27/2024 2:19 PM WIDE PIECE GOODS INSPECTOR Respiratory Rule-Out 07/24/2024 07/24/2024 025 2:29 PM WIDE PIECE GOODS INSPECTOR COVID - 07/24/2024 07/24/2024 07/24/2024 2:29 PM WIDE PIECE GOODS INSPECTOR COVID - 19 08/22/2024 08/22/2024 08/22/2024 11:4 6 PM CDT COVID - 19 09/03/2024 09/03/2024 09/03/2024 12:4 7 PM CDT Assessment Noted Time PHQ-9 Depression Total Score: 2 06/07/19 21 2:34 PM WIDE PIECE GOODS INSPECTOR documented as of this encounter Care Teams Retail Service Technician Relationship Specialty Start Date End Date Keith Craft MD PCP - General Family Medicine 01/14/19 12/26/23 Liz Capellan DO [address] [address] PCP - General Family Medicine 12/27/23 Quang Locke DO Gastroenterology 01/18/16 Bri Rollins RN [place] Floral Designer 03/07/21 05/22/23 [place] [address] [address] 05/25/21 Bri Rollins RN [place] Nurse Floral Designer 03/07/21 05/23/23 Werner Swift MD #2 [place] [address] Consulting Physician Pulmonary Disease 01/30/22 Yasmin Restrepo MD #[address] [address] Consulting Physician Endocrinology 07/20/24 Jose Do MD [address] [address] Consulting Physician Colon and Rectal Surgery 10/12/24 documented as of this encounter
--- OUTSIDE RECORDS SUMMARY | 2025-03-23 14:58 | XMS_ITS | Encounter Summary ---
Author Organization [facility] Address [address] [place] [address] Phone Care Team Providers Care Director Of Enrollment Name Role Phone Quang Locke Unavailable [phone] Keith Craft MD Primary Care Provider [phone] Bri Rollins RN Unavailable Unavailable Silvio Schulte MD Unavailable [phone] Bri Rollins RN Unavailable Unavailable Werner Swift MD Unavailable Liz Capellan DO Primary Care Provider [phone] Yasmin Restrepo MD Unavailable Jose Do MD Unavailable Reason for Visit * Reason Comments Medication Refill Encounter Details Date Type Department Care Team (Late st Contact Info) Description 11/01/2020 Refill [facility] - Family Medicine [facility] #2 [place] [address] Keith Craft MD #1 [place] [address] Medication Refill Social History Tobacco [...] right upper lobe due to infectious organism [facility] - Family Medicine Keith Lemus MD 4 weeks ago Hypoglycemia [facility] - Family Medicine - Keith Jenkins MD 4 months ago Mixed hyperlipidemia [facility] - Family Medicine Keith Lemus MD 6 months ago Pneumonia of right upper lobe due to infectious organism [facility] Medical [facility] - Family Medicine Keith Lemus MD 9 months ago Acute non-recurrent maxillary sinusitis [facility] Medical [facility] - Family Medicine Keith Lemus MD Upcoming Appointments Future Appointments Today [id number], [facility] In 2 months Keith Craft MD [facility] Medical [facility] - Family [facility], [facility] ENROLLMENT NURSE - Recent and Past Visits Recent [...] st Contact Info) Description 04/26/2025 1:30 PM DOCK ASSOCIATE Office Visit [facility] - Pulmonology & Sleep Medicine - [place] #2 [place] [address] Werner Swift MD #2 [place] [address] 05/31/2025 1:20 PM DOCK ASSOCIATE Office Visit [facility] - Family [facility] - [place] #2 [place] [address] Liz Capellan, DO [address] [address] 06/02/2025 1:30 PM DOCK ASSOCIATE Office Visit [facility] - Endocrinology - [place] #[address] [place] [address] Yasmin Restrepo MD #[address] [facility] [address] [address] documented as of this encounter Visit Diagnoses Diagnosis Anxiety and depression Dysthymic disorder documented in this encounter Additional Health Concerns Infection Onset Date Last Indicated Resolved Time COVID - 19 01/25/2021 01/25/2021 01/31/2021 8:10 AM CDT Respiratory Rule Out - RPA 01/30/2021 01/30/2021 0 02/01/2021 12:45 AM CDT COVID - 19 07/23/2021 07/23/2021 07/24/2021 6:31 AM DOCK ASSOCIATE COVID - 19 10/19/2021 10/19/2021 10/20/2021 7:45 AM CDT Respiratory Rule Out - RPA 10/19/2021 10/19/2021 0 10/20/2021 2:10 PM CDT Stenotrophomonas maltophilia Comment:Must have a follow up respiratory sample to remove isolation/infection flag. 10/20/2021 10/20/2021 COVID - 19 04/20/2022 04/20/2022 04/30/2022 12:1 8 AM DOCK ASSOCIATE COVID - 19 07/18/2022 07/18/2022 07/28/2022 12:1 6 AM DOCK ASSOCIATE COVID - 19 08/21/2022 08/21/2022 08/22/2022 8:31 AM CDT Respiratory Rule Out - RPA 08/21/2022 08/21/2022 0 08/22/2022 3:21 PM CDT COVID - 19 04/18/2023 04/18/2023 04/28/2023 12:1 6 AM DOCK ASSOCIATE COVID - 19 07/13/2023 07/13/2023 07/23/2023 12:1 6 AM DOCK ASSOCIATE Respiratory Rule Out - RPA 03/17/2024 03/17/2024 1 3:36 PM CDT COVID - 19 04/27/2024 04/27/2024 04/27/2024 2:19 PM DOCK ASSOCIATE Respiratory Rule-Out 07/24/2024 07/24/2024 025 2:29 PM DOCK ASSOCIATE COVID - 19 07/24/2024 07/24/2024 07/24/2024 2:29 PM DOCK ASSOCIATE COVID - 19 08/22/2024 08/22/2024 08/22/2024 11:4 6 PM CDT COVID - 19 09/03/2024 09/03/2024 09/03/2024 12:4 7 PM CDT Assessment Noted Time PHQ-9 Depression Total Score: 2 06/07/19 2:34 PM DOCK ASSOCIATE documented as of this encounter Care Teams Director Of Enrollment Relationship Specialty Start Date End Date Keith Craft MD PCP - General Family Medicine 01/14/19 12/26/23 Liz Capellan DO [address] [address] PCP - General Family Medicine 12/27/23 Quang Locke DO Gastroenterology 01/18/16 Bri Rollins RN [place] Die Repair 03/07/21 05/22/23 [place] [address] [address] 05/25/21 Bri Rollins RN [place] Nurse Die Repair 03/07/21 05/23/23 Werner Swift MD #2 [place] [address] Consulting Physician Pulmonary Disease 01/30/22 Yasmin Restrepo MD #[address] [address] Consulting Physician Endocrinology 07/20/24 Jose Do MD #[address] [address] Consulting Physician Colon and Rectal Surgery 10/12/24 documented as of this encounter
--- OUTSIDE RECORDS SUMMARY | 2025-03-23 14:58 | XMS_ITS | Encounter Summary ---
Author Organization [facility] Address [address] [place] [address] Phone Care Team Providers Care Tooling Manager Name Role Phone Quang Locke Unavailable [phone] Keith Craft MD Primary Care Provider [phone] Bri Rollins RN Unavailable Unavailable Silvio Schulte MD Unavailable [phone] Bri Rollins RN Unavailable Unavailable Werner Swift MD Unavailable Liz Capellan DO Primary Care Provider [phone] Yasmin Restrepo MD Unavailable Jose Do MD Unavailable Reason for Visit * Reason Comments Medication Refill Encounter Details Date Type Department Care Team (Late st Contact Info) Description 01/22/2022 Refill [facility] [address] [place] [address] Keith Craft MD #1 [place] [address] Medication Refill Social History Tobacco Use Types [...] st Contact Info) Description 04/26/2025 1:30 PM PRESS SMITH HELPER Office Visit [facility] - Pulmonology & Sleep Medicine [facility] #2 [place] [address] Werner Swift MD #2 [place] [address] 05/31/2025 1:20 PM PRESS SMITH HELPER [facility] Visit [facility] - Family Medicine - [place] #[address] [place] [address] Liz Capellan, DO 2 [facility] [address] [place] [address] 06/02/2025 1:30 PM PRESS SMITH HELPER Office Visit [facility] Endocrinology - [place] #[address] [place] [address] Yasmin Restrepo MD #2 [facility] [address] [place] [address] documented as of this encounter Goals Goal [...] plan education. I will notify my Manager Cosmetics if my symptoms fall in the y [...] 19 04/20/2022 04/20/2022 04/30/2022 12:1 8 AM PRESS SMITH HELPER COVID - 19 07/18/2022 07/18/2022 07/28/2022 12:1 6 AM PRESS SMITH HELPER COVID - 19 08/21/2022 08/21/2022 08/22/2022 8:31 AM CDT Respiratory Rule Out - RPA 08/21/2022 08/21/2022 0 08/22/2022 3:21 PM CDT COVID - 19 04/18/2023 04/18/2023 04/28/2023 12:1 6 AM PRESS SMITH HELPER COVID - 19 07/13/2023 07/13/2023 07/23/2023 12:1 6 AM PRESS SMITH HELPER Respiratory Rule Out - RPA 03/17/2024 03/17/2024 1 3:36 PM CDT COVID - 19 04/27/2024 04/27/2024 04/27/2024 2:19 PM PRESS SMITH HELPER Respiratory Rule-Out 07/24/2024 07/24/2024 025 2:29 PM PRESS SMITH HELPER COVID - 19 07/24/2024 07/24/2024 07/24/2024 2:29 PM PRESS SMITH HELPER COVID - 19 08/22/2024 08/22/2024 08/22/2024 11:4 6 PM CDT COVID - 19 09/03/2024 09/03/2024 09/03/2024 12:4 7 PM CDT Assessment Noted Time PHQ-9 Depression Total Score: 1 03/07/20 21 10:29 AM CDT documented as of this encounter Care Teams Tooling Manager Relationship Specialty Start Date End Date Keith Craft MD PCP - General Family Medicine 01/14/19 12/26/23 Liz Capellan DO [address] [facility] [facility]. [address] [place] [address] PCP - General Family Medicine 12/27/23 Quang Locke DO Gastroenterology 01/18/16 Bri Rollins, KATEY [place] Manager Cosmetics 03/07/21 05/22/23 [place] [id number] [address] 05/25/21 Bri Rollins, [place] Nurse Manager Cosmetics 03/07/21 05/23/23 Werner Swift MD #[address] [place] [address] Consulting Physician Pulmonary Disease 01/30/22 Yasmin Restrepo MD #2 [facility] [address] [place] [address] Consulting Physician Endocrinology 07/20/24 Jose Do MD #2 [facility] [address] [place] [address] Consulting Physician Colon and Rectal Surgery 10/12/24 documented as of this encounter
--- OUTSIDE RECORDS SUMMARY | 2025-03-23 14:58 | XMS_ITS | Encounter Summary ---
Author Organization [facility] Address [address] [place] [address] Phone Care Team Providers Care Labor Relations Analyst Name Role Phone Quang Locke Unavailable [phone] Keith Craft MD Primary Care Provider [phone] Bri Rollins RN Unavailable Unavailable Silvio Schulte MD Unavailable [phone] Bri Rollins RN Unavailable Unavailable Werner Swift MD Unavailable Liz Capellan DO Primary Care Provider Yasmin Restrepo MD Unavailable Jose Do MD Unavailable Reason for Visit * Reason Onset Date Comments Medication Refill Medication Refill 10/26/2020 Encounter Details Date Type Department Care Team (Late st Contact Info) Description 10/23/2020 Refill [facility] #2 [place] [address] Keith Craft MD #1 [place], [place] [id number] Medication Refill; Medication Refill Social History Tobacco [...] organism [facility] Keith Lemus MD 3 weeks ago Hypoglycemia [facility] Keith Lemus MD 4 months ago Mixed hyperlipidemia [facility] Keith Lemus MD 6 months ago Pneumonia of right upper lobe due to infectious organism [facility] Keith Lemus MD 8 months ago Acute non-recurrent maxillary sinusitis [facility] Keith Lemus MD Upcoming Appointments Future Appointments In [address] Mammography, [facility] In 2 months Keith Craft MD [facility] CUSTOMER SALES CONSULTANT - Recent and Past Visits Recent [...] right upper lobe due to infectious organism [facility] - Family Medicine - Keith Jenkins MD 3 weeks ago Hypoglycemia [facility] - Keith Jenkins MD 4 months ago Mixed hyperlipidemia [facility] Keith Lemus MD 6 months ago Pneumonia of right upper lobe due to infectious organism [facility] Medical [facility] Family Medicine Keith Lemus MD 8 months ago Acute non-recurrent maxillary sinusitis [facility] Medical [facility] Family Medicine - Keith Jenkins MD Upcoming Appointments Future Appointments In [address] Mammography, [facility] In 2 months Keith Craft MD [facility] Family [facility] CUSTOMER SALES CONSULTANT - Recent and Past Visits Recent Visits Date Type Provider Dept 10/12/20 Office Visit Keith Craft MD [facility] 10/04/20 Office Visit Keith Craft MD [facility] 06/07/20 Office Visit Keith Craft MD [facility] [...] st Contact Info) Description 04/26/2025 1:30 PM COMPUTER EDUCATION PROFESSOR Office Visit [facility] Medical [facility] - Pulmonology & Sleep Medicine [facility] #2 [place] [address] Werner Swift MD [address]2 [place] [address] 05/31/2025 1:20 PM COMPUTER EDUCATION PROFESSOR Office Visit [facility] Medical [facility] - Family Medicine - [place] [address]2 [place] [address] Liz Capellan, DO [address] [address] 06/02/2025 1:30 PM COMPUTER EDUCATION PROFESSOR Office Visit [facility] - Endocrinology [facility] #2 [place] [address] Yasmin Restrepo MD #[address] [address] documented as of this encounter Visit Diagnoses [...] - 19 07/23/2021 07/23/2021 07/24/2021 6:31 AM COMPUTER EDUCATION PROFESSOR COVID - 19 10/19/2021 10/19/2021 10/20/2021 7:45 AM CDT Respiratory Rule Out - RPA 10/19/2021 10/19/2021 0 10/20/2021 2:10 PM CDT Stenotrophomonas maltophilia Comment:Must have a follow up respiratory sample to remove isolation/infection flag. 10/20/2021 10/20/2021 COVID - 19 04/20/2022 04/20/2022 04/30/2022 12:1 8 AM COMPUTER EDUCATION PROFESSOR COVID - 19 07/18/2022 07/18/2022 07/28/2022 12:1 6 AM COMPUTER EDUCATION PROFESSOR COVID - 19 08/21/2022 08/21/2022 08/22/2022 8:31 AM CDT Respiratory Rule Out - RPA 08/21/2022 08/21/2022 0 08/22/2022 3:21 PM CDT COVID - 19 04/18/2023 04/18/2023 04/28/2023 12:1 6 AM COMPUTER EDUCATION PROFESSOR COVID - 19 07/13/2023 07/13/2023 07/23/2023 12:1 6 AM COMPUTER EDUCATION PROFESSOR Respiratory Rule Out - RPA 03/17/2024 03/17/2024 1 3:36 PM CDT COVID - 19 04/27/2024 04/27/2024 04/27/2024 2:19 PM COMPUTER EDUCATION PROFESSOR Respiratory Rule-Out 07/24/2024 07/24/2024 025 2:29 PM COMPUTER EDUCATION PROFESSOR COVID - 19 07/24/2024 07/24/2024 07/24/2024 2:29 PM COMPUTER EDUCATION PROFESSOR COVID - 19 08/22/2024 08/22/2024 08/22/2024 11:4 6 PM CDT COVID - 19 09/03/2024 09/03/2024 09/03/2024 12:4 7 PM CDT Assessment Noted Time PHQ-9 Depression Total Score: 2 06/07/19 21 2:34 PM COMPUTER EDUCATION PROFESSOR documented as of this encounter Care Teams Labor Relations Analyst Relationship Specialty Start Date End Date Keith Craft MD PCP - General Family Medicine 01/14/19 12/26/23 Liz Capellan DO [address] [id number] PCP - General Family Medicine 12/27/23 Quang Locke DO Gastroenterology 01/18/16 Bri Rollins, RN [place] Care Management Coordinator 03/07/21 05/22/23 [place] [id number] [address] 05/25/21 Bri Rollins, RN [place] Nurse Care Management Coordinator 03/07/21 05/23/23 Werner Swift MD #2 [place] [address] Consulting Physician Pulmonary Disease 01/30/22 Yasmin Restrepo MD #[address] [phone] Consulting Physician Endocrinology 07/20/24 Jose Do MD #[address] [address] Consulting Physician Colon and Rectal Surgery 10/12/24 documented as of this encounter
--- OUTSIDE RECORDS SUMMARY | 2025-03-23 14:58 | XMS_ITS | Encounter Summary ---
Author Organization [facility] Address [address] [place] [address] Phone Care Team Providers Care Adult Education Instructor Name Role Phone Quang Locke Unavailable [phone] Keith Craft MD Primary Care Provider [phone] Bri Rollins RN Unavailable Unavailable Silvio Schulte MD Unavailable [phone] Bri Rollins RN Unavailable Unavailable Werner Swift MD Unavailable Liz Capellan DO Primary Care Provider [phone] Yasmin Restrepo MD Unavailable Jose Do MD Unavailable Reason for Visit * Reason Comments Medication Refill Encounter Details Date Type Department Care Team (Late st Contact Info) Description 11/29/2020 Refill [facility] Family Medicine [facility] #2 [place] [address] Keith Craft MD [address]1 [place] [address] Medication Refill Social History Tobacco [...] Contact Info) Description 04/26/2025 1:30 PM ELECTRICAL AND RADIO AIRCRAFT MECHANIC Office Visit [facility] Medical [facility] - Pulmonology & Sleep Medicine [facility] [address]2 [place] [address] Werner Swift MD #[address] [place] [address] 05/31/2025 1:20 PM ELECTRICAL AND RADIO AIRCRAFT MECHANIC Office Visit [facility] - Family Medicine - [place] [address]2 [place] [address] Liz Capellan, DO [address] [facility]. [address] [place] [address] 06/02/2025 1:30 PM ELECTRICAL AND RADIO AIRCRAFT MECHANIC Office Visit [facility] - Endocrinology - [place] [facility] [place] [address] Yasmin Restrepo MD #2 [facility] [address] [place] [address] documented as of this encounter Visit Diagnoses Diagnosis Anxiety and depression Dysthymic disorder documented in this encounter Additional Health Concerns Infection Onset Date Last Indicated Resolved Time COVID - 19 01/25/2021 01/25/2021 01/31/2021 8:10 AM CDT Respiratory Rule Out - RPA 01/30/2021 01/30/2021 0 02/01/2021 12:45 AM CDT COVID - 19 07/23/2021 07/23/2021 07/24/2021 6:31 AM ELECTRICAL AND RADIO AIRCRAFT MECHANIC COVID - 19 10/19/2021 10/19/2021 10/20/2021 7:45 AM CDT Respiratory Rule Out - RPA 10/19/2021 10/19/2021 0 10/20/2021 2:10 PM CDT Stenotrophomonas maltophilia Comment:Must have a follow up respiratory sample to remove isolation/infection flag. 10/20/2021 10/20/2021 COVID - 19 04/20/2022 04/20/2022 04/30/2022 12:1 8 AM ELECTRICAL AND RADIO AIRCRAFT MECHANIC COVID - 19 07/18/2022 07/18/2022 07/28/2022 12:1 6 AM ELECTRICAL AND RADIO AIRCRAFT MECHANIC COVID - 19 08/21/2022 08/21/2022 08/22/2022 8:31 AM CDT Respiratory Rule Out - RPA 08/21/2022 08/21/2022 0 08/22/2022 3:21 PM CDT COVID - 19 04/18/2023 04/18/2023 04/28/2023 12:1 6 AM ELECTRICAL AND RADIO AIRCRAFT MECHANIC COVID - 19 07/13/2023 07/13/2023 07/23/2023 12:1 6 AM ELECTRICAL AND RADIO AIRCRAFT MECHANIC Respiratory Rule Out - RPA 03/17/2024 03/17/2024 1 3:36 PM CDT COVID - 19 04/27/2024 04/27/2024 04/27/2024 2:19 PM ELECTRICAL AND RADIO AIRCRAFT MECHANIC Respiratory Rule-Out 07/24/2024 07/24/2024 025 2:29 PM ELECTRICAL AND RADIO AIRCRAFT MECHANIC COVID - 19 07/24/2024 07/24/2024 07/24/2024 2:29 PM ELECTRICAL AND RADIO AIRCRAFT MECHANIC COVID - 19 08/22/2024 08/22/2024 08/22/2024 11:4 6 PM CDT COVID - 19 09/03/2024 09/03/2024 09/03/2024 12:4 7 PM CDT Assessment Noted Time PHQ-9 Depression Total Score: 2 06/07/19 2:34 PM ELECTRICAL AND RADIO AIRCRAFT MECHANIC documented as of this encounter Care Teams Adult Education Instructor Relationship Specialty Start Date End Date Keith Craft MD PCP - General Family Medicine 01/14/19 12/26/23 Liz Capellan DO [address] [address] PCP - General Family Medicine 12/27/23 Quang Locke DO Gastroenterology 01/18/16 Bri Rollins RN [place] Cytotechnologist 03/07/21 05/22/23 [place] [id number] [address] 05/25/21 Bri Rollins RN [place] Nurse Cytotechnologist 03/07/21 05/23/23 Werner Swift MD #2 [place] [address] Consulting Physician Pulmonary Disease 01/30/22 Yasmin Restrepo MD #[address] [phone] Consulting Physician Endocrinology 07/20/24 Jose Do MD #[address] [id number] Consulting Physician Colon and Rectal Surgery 10/12/24 documented as of this encounter
--- OUTSIDE RECORDS SUMMARY | 2025-03-23 14:58 | XMS_ITS | Encounter Summary ---
Author Organization [facility] Address [address] [place] [address] Phone Care Team Providers Care Shank Inspector Name Role Phone Quang Locke Unavailable [phone] Keith Craft MD Primary Care Provider [phone] Bri Rollins RN Unavailable Unavailable Silvio Schulte MD Unavailable Bri Rollins RN Unavailable Unavailable Werner Swift MD Unavailable Liz Capellan DO Primary Care Provider [phone] Yasmin Restrepo MD Unavailable Jose Do MD Unavailable Reason for Visit * Reason Comments Medication Refill Encounter Details Date Type Department Care Team (Late st Contact Info) Description 07/26/2020 Refill [facility] #2 [place] [address] Keith Craft MD [address] [place] [address] Medication Refill Social History Tobacco [...] COVID-19? No / Unsure 07/02/2020 2:53 PM SHUCKER documented as of this encounter Miscellaneous Notes [...] Outpatient Visits 1 month ago Mixed hyperlipidemia [facility] Family Medicine Keith Lemus MD 3 months ago Pneumonia of right upper lobe due to infectious organism [facility] Keith Lemus MD 5 months ago Acute non-recurrent maxillary sinusitis [facility] Keith Lemus MD 8 months ago Chronic prescription opiate use [facility] Keith Lemus MD 1 year ago Coronary artery disease involving [place] coronary artery of [place] heart without angina pectoris [facility] Keith Lemus MD Upcoming Appointments Future Appointments In 4 days [facility], [place] In 2 months Keith Craft MD [facility] CHILD CARE - Recent and Past Visits Recent Visits Date Type Provider Dept 06/07/20 Office Visit Keith Craft MD [facility] 04/25/20 Office Visit Keith Craft, MD [facility] 02/02/20 Office Visit Keith Craft MD [facility] 11/02/19 Office Visit Keith Craft MD [facility] 07/27/19 Office Visit Keith Craft MD [facility] 06/10/19 Office Visit Brie Denis PAC [facility] Showing recent visits within past 460 days with a meds authorizing provider and meeting all other requirements Future Appointments Date Type Provider Dept 10/04/20 Appointment Keith Craft MD [facility] Showing future appointments within next 90 days with a meds authorizing provider and meeting all other requirements KER documented in this encounter Plan of Treatment Upcoming Encounters Date Type Department Care Team (Late st Contact Info) Description 04/26/2025 1:30 PM SHUCKER Office Visit [facility] - Pulmonology & Sleep Medicine - [place] #2 [place] [address] Werner Swift MD #2 [place] [address] 05/31/2025 1:20 PM SHUCKER Office Visit [facility] - [place] #2 [place] [address] Liz Capellan, DO [address] [address] 06/02/2025 1:30 PM SHUCKER Office Visit [facility] - Endocrinology - [place] [address] [place] [address] Yasmin Restrepo MD [address] [place] [address] [address] documented as of this encounter Visit Diagnoses Diagnosis Chronic low back pain, unspecified back pain laterality, unspecified whether sciatica present documented in this encounter Additional Health Concerns Infection Onset Date Last Indicated Resolved Time COVID - 19 01/25/2021 01/25/2021 01/31/2021 8:10 AM CDT Respiratory Rule Out - RPA 01/30/2021 01/30/2021 0 02/01/2021 12:45 AM CDT COVID - 19 07/23/2021 07/23/2021 07/24/2021 6:31 AM SHUCKER COVID - 19 10/19/2021 10/19/2021 10/20/2021 7:45 AM CDT Respiratory Rule Out - RPA 10/19/2021 10/19/2021 0 10/20/2021 2:10 PM CDT Stenotrophomonas maltophilia Comment:Must have a follow up respiratory sample to remove isolation/infection flag. 10/20/2021 10/20/2021 COVID - 19 04/20/2022 04/20/2022 04/30/2022 12:1 8 AM SHUCKER COVID - 19 07/18/2022 07/18/2022 07/28/2022 12:1 6 AM SHUCKER COVID - 19 08/21/2022 08/21/2022 08/22/2022 8:31 AM CDT Respiratory Rule Out - RPA 08/21/2022 08/21/2022 0 08/22/2022 3:21 PM CDT COVID - 19 04/18/2023 04/18/2023 04/28/2023 12:1 6 AM SHUCKER COVID - 19 07/13/2023 07/13/2023 07/23/2023 12:1 6 AM SHUCKER Respiratory Rule Out - RPA 03/17/2024 03/17/2024 1 3:36 PM CDT COVID - 19 04/27/2024 04/27/2024 04/27/2024 2:19 PM SHUCKER Respiratory Rule-Out 07/24/2024 07/24/2024 025 2:29 PM SHUCKER COVID - 19 07/24/2024 07/24/2024 07/24/2024 2:29 PM SHUCKER COVID - 19 08/22/2024 08/22/2024 08/22/2024 11:4 6 PM CDT COVID - 19 09/03/2024 09/03/2024 09/03/2024 12:4 7 PM CDT Assessment Noted Time PHQ-9 Depression Total Score: 2 06/07/19 2:34 PM SHUCKER documented as of this encounter Care Teams Shank Inspector Relationship Specialty Start Date End Date Keith Craft MD PCP - General Family Medicine 01/14/19 12/26/23 Liz Capellan DO [address] [address] PCP - General Family Medicine 12/27/23 Quang Locke DO Gastroenterology 01/18/16 Bri Rollins RN [place] Supervisor Money Room 03/07/21 05/22/23 [place] [address] [address] 05/25/21 Bri Rollins RN [place] Nurse Supervisor Money Room 03/07/21 05/23/23 Werner Swift MD #2 [place] [address] Consulting Physician Pulmonary Disease 01/30/22 Yasmin Restrepo MD #[address] [address] Consulting Physician Endocrinology 07/20/24 Jose Do MD #[address] [address] Consulting Physician Colon and Rectal Surgery 10/12/24 documented as of this encounter
--- OUTSIDE RECORDS SUMMARY | 2025-03-23 14:58 | XMS_ITS | Encounter Summary ---
Author Organization [facility] Address [address] [place] [address] Phone Care Team Providers Care Photographic Plate Maker Name Role Phone Quang Locke Unavailable [phone] Keith Craft MD Primary Care Provider [phone] Silvio Schulte MD Unavailable [phone] Werner Swift MD Unavailable Liz Capellan DO Primary Care Provider Yasmin Restrepo MD Unavailable Jose Do MD Unavailable Reason for Visit * Reason Comments Medication Refill Encounter Details Date Type Department Care Team (Late st Contact Info) Description 09/11/2023 Refill [facility] Family Medicine [facility] #2 [place] [address] Keith Craft MD #1 [place] [address] Medication Refill Social History Tobacco Use Types Packs/Day Years Used Date Smoking Tobacco: Former Cigarettes 2 50 1 - 03/16/2018 Smokeless Tobacco: Never Comments:Still uses nictoine patches and gum Alcohol Use Standard Drinks/Week Comments No 0 (1 standard drink = 0.6 oz pur e alcohol) [facility] Utilities Answer Date Recorded In the past [...] often do you attend chur ch or yazidism services? Never 07/13/2023 Do you belong to [...] Score - Questions 1-9 0 08/2021 [facility] [place] of Occupat ional Health - Occupational Stress [...] [place] 12/10/22 Office Visit Keith Craft MD [facility] Showing recent visits within past 365 days and meeting all other requirements Future Appointments No visits were found meeting these conditions. Showing future appointments within next 90 days and meeting all other requirements documented in this encounter Plan of Treatment Upcoming Encounters Date Type Department Care Team (Late st Contact Info) Description 04/26/2025 1:30 PM DIRECTOR STERILE PROCESSING Office Visit [facility] Medical [facility] - Pulmonology & Sleep Medicine - [place] #2 [place] [address] Werner Swift MD #2 [place] [phone] 05/31/2025 1:20 PM DIRECTOR STERILE PROCESSING Office Visit [facility] Medical [facility] - Family Medicine - [place] #2 [facility] [phone] Liz Capellan, DO 2 [facility] [address] [place], [place] [phone] 06/02/2025 1:30 PM DIRECTOR STERILE PROCESSING Office Visit [facility] - Endocrinology - [place] #2 [place] [address] Yasmin Restrepo MD #[address] [place] [address] documented as of this encounter Goals Goal [...] plan education. I will notify my Plant Tender if my symptoms fall in the [...] 19 04/27/2024 04/27/2024 04/27/2024 2:19 PM DIRECTOR STERILE PROCESSING Respiratory Rule-Out 07/24/2024 07/24/2024 025 2:29 PM DIRECTOR STERILE PROCESSING COVID - 19 07/24/2024 07/24/2024 07/24/2024 2:29 PM DIRECTOR STERILE PROCESSING COVID - 19 08/22/2024 08/22/2024 08/22/2024 11:4 6 PM CDT COVID - 19 09/03/2024 09/03/2024 09/03/2024 12:4 7 PM CDT Assessment Noted Time PHQ-9 Depression Total Score: 1 03/07/20 21 10:29 AM CDT documented as of this encounter Care Teams Photographic Plate Maker Relationship Specialty Start Date End Date Keith Craft MD PCP - General Family Medicine 01/14/19 12/26/23 Liz Capellan DO [address] [address] PCP - General Family Medicine 12/27/23 Quang Locke DO Gastroenterology 01/18/16 [place] [address] [address] 05/25/21 Werner Swift MD #2 [place] [address] Consulting Physician Pulmonary Disease 01/30/22 Yasmin Restrepo MD #[address] [address] Consulting Physician Endocrinology 07/20/24 Jose Do MD #[address] [address] Consulting Physician Colon and Rectal Surgery 10/12/24 documented as of this encounter
--- OUTSIDE RECORDS SUMMARY | 2025-03-23 14:58 | XMS_ITS | Encounter Summary ---
Author Organization [facility] Address [address] [place] [address] Phone Care Team Providers Care Guitar Teacher Name Role Phone Quang Locke Unavailable [phone] Keith Craft MD Primary Care Provider [phone] Bri Rollins RN Unavailable Unavailable Silvio Schulte MD Unavailable [phone] Bri Rollins RN Unavailable Unavailable Werner Swift MD Unavailable Liz Capellan DO Primary Care Provider [phone] Yasmin Restrepo MD Unavailable Jose Do MD Unavailable Reason for Visit * Reason Comments Medication Refill Encounter Details Date Type Department Care Team (Late st Contact Info) Description 08/24/2020 Refill [facility] - [facility] #2 [place] [address] Keith Craft MD [address]1 [place] [address] Medication Refill Social History Tobacco [...] COVID-19? No / Unsure 07/30/2020 3:25 PM BEHAVIORAL HEALTH CASE MANAGER documented as of this encounter Miscellaneous [...] Outpatient Visits 2 months ago Mixed hyperlipidemia [facility] Keith Lemus MD 4 months ago Pneumonia of right upper lobe due to infectious organism [facility] Keith Lemus MD 6 months ago Acute non-recurrent maxillary sinusitis [facility] Keith Lemus MD 9 months ago Chronic prescription opiate use [facility] Keith Lemus MD 1 year ago Coronary artery disease involving [place] coronary artery of [place] heart without angina pectoris [facility] Keith Lemus MD Upcoming Appointments Future Appointments In 1 month Keith Craft MD [facility] Family Medicine - [place], [facility] PROCESS CONTROL SUPERVISOR - Recent and Past Visits Recent Visits Date Type Provider Dept 06/07/20 Office Visit Keith Craft MD [facility] 04/25/20 Office Visit Keith Craft MD [facility] 02/02/20 Office Visit Keith Craft MD [facility] 11/02/19 Office Visit Keith Craft MD [facility] 07/27/19 Office Visit Keith Craft MD [facility] 06/10/19 Office Visit Brie Denis PAC [facility] Showing recent visits within past 460 days with a meds authorizing provider and meeting all other requirements Future Appointments Date Type Provider Dept 10/04/20 Appointment Keith Cratf MD [facility] Showing future appointments within next 90 days with a meds authorizing provider and meeting all other requirements documented in this encounter Plan of Treatment Upcoming Encounters Date Type Department Care Team (Late st Contact Info) Description 04/26/2025 1:30 PM BEHAVIORAL HEALTH CASE MANAGER Office Visit [facility] Medical [facility] - Pulmonology & Sleep Medicine - [place] [address] [place] [address] Werner Swift MD [address]2 [place] [address] 05/31/2025 1:20 PM BEHAVIORAL HEALTH CASE MANAGER Office Visit [facility] Family Medicine - [place] [address] [place] [address] Liz Capellan, DO [address] [address] 06/02/2025 1:30 PM BEHAVIORAL HEALTH CASE MANAGER Office Visit [facility] - Endocrinology - [place] [address] [place] [address] Yasmin Restrepo MD [address] [address] documented as of this encounter Visit Diagnoses Not on filedocumented in this encounter Additional Health Concerns Infection Onset Date Last Indicated Resolved Time COVID - 19 01/25/2021 01/25/2021 01/31/2021 8:10 AM CDT Respiratory Rule Out - RPA 01/30/2021 01/30/2021 0 02/01/2021 12:45 AM CDT COVID - 19 07/23/2021 07/23/2021 07/24/2021 6:31 AM BEHAVIORAL HEALTH CASE MANAGER COVID - 19 10/19/2021 10/19/2021 10/20/2021 7:45 AM CDT Respiratory Rule Out - RPA 10/19/2021 10/19/2021 0 10/20/2021 2:10 PM CDT Stenotrophomonas maltophilia Comment:Must have a follow up respiratory sample to remove isolation/infection flag. 10/20/2021 10/20/2021 COVID - 19 04/20/2022 04/20/2022 04/30/2022 12:1 8 AM BEHAVIORAL HEALTH CASE MANAGER COVID - 19 07/18/2022 07/18/2022 07/28/2022 12:1 6 AM BEHAVIORAL HEALTH CASE MANAGER COVID - 19 08/21/2022 08/21/2022 08/22/2022 8:31 AM CDT Respiratory Rule Out - RPA 08/21/2022 08/21/2022 0 08/22/2022 3:21 PM CDT COVID - 19 04/18/2023 04/18/2023 04/28/2023 12:1 6 AM BEHAVIORAL HEALTH CASE MANAGER COVID - 19 07/13/2023 07/13/2023 07/23/2023 12:1 6 AM BEHAVIORAL HEALTH CASE MANAGER Respiratory Rule Out - RPA 03/17/2024 03/17/2024 1 3:36 PM CDT COVID - 19 04/27/2024 04/27/2024 04/27/2024 2:19 PM BEHAVIORAL HEALTH CASE MANAGER Respiratory Rule-Out 07/24/2024 07/24/20242 025 2:29 PM BEHAVIORAL HEALTH CASE MANAGER COVID - 19 07/24/2024 07/24/2024 07/24/2024 2:29 PM BEHAVIORAL HEALTH CASE MANAGER COVID - 19 08/22/2024 08/22/2024 08/22/2024 11:4 6 PM CDT COVID - 19 09/03/2024 09/03/2024 09/03/2024 12:4 7 PM CDT Assessment Noted Time PHQ-9 Depression Total Score: 2 06/07/19 2:34 PM BEHAVIORAL HEALTH CASE MANAGER documented as of this encounter Care Teams Guitar Teacher Relationship Specialty Start Date End Date Keith Craft MD PCP - General Family Medicine 01/14/19 12/26/23 Liz Capellan DO [address] [address] PCP - General Family Medicine 12/27/23 Quang Locke DO Gastroenterology 01/18/16 Bri Rollins, RN [place] Heel Slugger 03/07/21 05/22/23 [place] [id number] [address] 05/25/21 Bri Rollins, RN [place] Nurse Heel Slugger 03/07/21 05/23/23 Werner Swift MD #2 [place] [address] Consulting Physician Pulmonary Disease 01/30/22 Yasmin Restrepo MD #[address] [address] Consulting Physician Endocrinology 07/20/24 Jose Do MD #2 [place] [address] Consulting Physician Colon and Rectal Surgery 10/12/24 documented as of this encounter
--- OUTSIDE RECORDS SUMMARY | 2025-03-23 14:58 | XMS_ITS | Encounter Summary ---
Author Organization [facility] Address [address] [place] [address] Phone Care Team Providers Care Customs Port Director Name Role Phone SloanQuang walker Oswaldo PRESLEY Unavailable [phone] Silvio Schulte MD Unavailable [phone] Werner Swift MD Unavailable Liz Capellan DO Primary Care Provider Yasmin Restrepo MD Unavailable Jose Do MD Unavailable Reason for Visit * Reason Comments Medication Refill Encounter Details Date Type Department Care Team (Late st Contact Info) Description 07/20/2024 Refill [facility] [address] [place] [address] Keith Craft MD [address] [place] [address] Medication Refill Social History Tobacco Use Types Packs/Day Years Used Date Smoking Tobacco: Former Cigarettes 2 50 1 - 03/16/2018 Smokeless Tobacco: Never Comments:Still uses nictoine patches and gum Alcohol Use Standard Drinks/Week Comments No 0 (1 standard drink = 0.6 oz pur e alcohol) [facility] Utilities Answer Date Recorded In [...] often do you attend chur ch or oriental orthodox services? Patient declined 07/23/2024 Do you belong [...] Total Score - Questions 1-9 0 06/27 [facility] [place] of Occupat ional Health - Occupational [...] living in a mcc (including now)? No 07/23/2024 Education Answer Date [...] of Assessment Author -1 07/23/2024 12:19 PM ASSEMBLY LINE WORKER Mychart, System Background * Q1: How often do you have a drink containing alcohol? Answer Date of Assessment Author Patient declined 07/23/2024 12:19 PM ASSEMBLY LINE WORKER Mychart , System Background * Q2: How many drinks containing alcohol do you have on a typical day when you are drinking? Answer Date of Assessment Author Patient declined 07/23/2024 12:19 PM ASSEMBLY LINE WORKER Mychart , System Background * Q3: How often do you have six or more drinks on one occasion? Answer Date of Assessment Author Patient declined 07/23/2024 12:19 PM ASSEMBLY LINE WORKER Mychart , System Background documented as of this encounter Miscellaneous Notes * Telephone Encounter - Gloria Cornejo RN - 07/20/2024 10:55 AM CST Images from the original note were not included. Name from pharmacy: NOVOLOG FLEXPEN FLEXPEN SOLN PEN-INJ Will file in chart as: NovoLOG FlexPen 100 UNIT/ML Solution Pen-injector The original prescription was discontinued on 12/27/2023 by Liz Capellan DO MBLY LINE WORKER documented in this encounter Plan of Treatment Upcoming Encounters Date Type Department Care Team (Late st Contact Info) Description 04/26/2025 1:30 PM ASSEMBLY LINE WORKER Office Visit [facility] - Pulmonology & Sleep Medicine [facility] #2 [place] [address] Werner Swift MD [address] [place] [address] 05/31/2025 1:20 PM ASSEMBLY LINE WORKER Office Visit [facility] - Family Medicine - [place] #2 [place] [address] Liz Capellan DO [address] [address] 06/02/2025 1:30 PM ASSEMBLY LINE WORKER Office Visit [facility] - Endocrinology - [place] [address] [place] [address] Yasmin Restrepo MD [address] [address] documented as of this encounter Goals Goal [...] Zones/Action plan education. I will notify my Cemetery Workers Supervisor if my symptoms fall in the [...] Respiratory Rule-Out 07/24/2024 07/24/2024 025 2:29 PM ASSEMBLY LINE WORKER COVID - 19 07/24/2024 07/24/202407/24/2024 2:29 PM ASSEMBLY LINE WORKER COVID - 19 08/22/2024 08/22/2024 08/22/2024 11:4 6 PM CDT COVID - 19 09/03/2024 09/03/2024 09/03/2024 12:4 7 PM CDT Assessment Noted Time PHQ-9 Depression Total Score: 0 07/13/19 1:20 PM ASSEMBLY LINE WORKER documented as of this encounter Care Teams Customs Port Director Relationship Specialty Start Date End Date Liz Capellan DO 2 [facility] [address] [place] [address] PCP - General Family Medicine 12/27/23 Quang Locke DO Gastroenterology 01/18/16 [place] [address] [address] 05/25/21 Werner Swift MD [address]2 [place] [address] Consulting Physician Pulmonary Disease 01/30/22 Yasmin Restrepo MD #[address] [address] Consulting Physician Endocrinology 07/20/24 Jose Do MD #[address] [address] Consulting Physician Colon and Rectal Surgery 10/12/24 documented as of this encounter
--- OUTSIDE RECORDS SUMMARY | 2025-03-23 14:58 | XMS_ITS | Encounter Summary ---
Author Organization [facility] Address [address] [place] [address] Phone Care Team Providers Care Vault Person Name Role Phone Quang Locke Unavailable [phone] Keith Craft MD Primary Care Provider [phone] Bri Rollins RN Unavailable Unavailable Silvio Schulte MD Unavailable [phone] Bri Rollins RN Unavailable Unavailable Werner Swift MD Unavailable Liz Capellan DO Primary Care Provider [phone] Yasmin Restrepo MD Unavailable Jose Do MD Unavailable Reason for Visit * Reason Comments Medication Refill Encounter Details Date Type Department Care Team (Late st Contact Info) Description 12/25/2020 Refill [facility] Family Medicine [facility] #2 [place] [address] Keith Craft MD [address]1 [place] [address] Medication Refill Social History Tobacco [...] st Contact Info) Description 04/26/2025 1:30 PM FACING BASTER JUMPBASTING Office Visit [facility] - Pulmonology & Sleep Medicine - [place] [address] [place] [address] Werner Swift MD #2 [place] [address] 05/31/2025 1:20 PM FACING BASTER JUMPBASTING Office Visit [facility] - Family Medicine - [place] [address] [place] [address] Liz Capellan, DO [address] [address] 06/02/2025 1:30 PM FACING BASTER JUMPBASTING Office Visit [facility] Medical [facility] - Endocrinology - [place] [address] [place] [address] Yasmin Restrepo MD [address] [address] documented as of this encounter Visit Diagnoses Diagnosis Anxiety and depression Dysthymic disorder documented in this encounter Additional Health Concerns Infection Onset Date Last Indicated Resolved Time COVID - 19 01/25/2021 01/25/2021 01/31/2021 8:10 AM CDT Respiratory Rule Out - RPA 01/30/2021 01/30/2021 0 02/01/2021 12:45 AM CDT COVID - 19 07/23/2021 07/23/2021 07/24/2021 6:31 AM FACING BASTER JUMPBASTING COVID - 19 10/19/2021 10/19/2021 10/20/2021 7:45 AM CDT Respiratory Rule Out - RPA 10/19/2021 10/19/2021 0 10/20/2021 2:10 PM CDT Stenotrophomonas maltophilia Comment:Must have a follow up respiratory sample to remove isolation/infection flag. 10/20/2021 10/20/2021 COVID - 19 04/20/2022 04/20/2022 04/30/2022 12:1 8 AM FACING BASTER JUMPBASTING COVID - 19 07/18/2022 07/18/2022 07/28/2022 12:1 6 AM FACING BASTER JUMPBASTING COVID - 19 08/21/2022 08/21/2022 08/22/2022 8:31 AM CDT Respiratory Rule Out - RPA 08/21/2022 08/21/2022 0 08/22/2022 3:21 PM CDT COVID - 19 04/18/2023 04/18/2023 04/28/2023 12:1 6 AM FACING BASTER JUMPBASTING COVID - 19 07/13/2023 07/13/2023 07/23/2023 12:1 6 AM FACING BASTER JUMPBASTING Respiratory Rule Out - RPA 03/17/2024 03/17/2024 1 3:36 PM CDT COVID - 19 04/27/2024 04/27/2024 04/27/2024 2:19 PM FACING BASTER JUMPBASTING Respiratory Rule-Out 07/24/2024 07/24/2024 025 2:29 PM FACING BASTER JUMPBASTING COVID - 19 07/24/2024 07/24/2024 07/24/2024 2:29 PM FACING BASTER JUMPBASTING COVID - 19 08/22/2024 08/22/2024 08/22/2024 11:4 6 PM CDT COVID - 19 09/03/2024 09/03/2024 09/03/2024 12:4 7 PM CDT Assessment Noted Time PHQ-9 Depression Total Score: 2 06/07/19 2:34 PM FACING BASTER JUMPBASTING documented as of this encounter Care Teams Vault Person Relationship Specialty Start Date End Date Keith Craft MD PCP - General Family Medicine 01/14/19 12/26/23 Liz Capellan DO [address] [address] PCP - General Family Medicine 12/27/23 Quang Locke DO Gastroenterology 01/18/16 Bri Rollins, RN [place] Digital Artist 03/07/21 05/22/23 [place] [address] [address] 05/25/21 Bri Rollins, RN [place] Nurse Digital Artist 03/07/21 05/23/23 Werner Swift MD #2 [place] [address] Consulting Physician Pulmonary Disease 01/30/22 Yasmin Restrepo MD #[address] [address] Consulting Physician Endocrinology 07/20/24 Jose Do MD #2 [place] [address] Consulting Physician Colon and Rectal Surgery 10/12/24 documented as of this encounter
--- OUTSIDE RECORDS SUMMARY | 2025-03-23 14:58 | XMS_ITS | Encounter Summary ---
Author Organization [facility] Address [address] [place] [address] Phone Care Team Providers Care County Sheriff Name Role Phone Quang Locke Unavailable [phone] Keith Craft MD Primary Care Provider [phone] Bri Rollins RN Unavailable Unavailable Silvio Schulte MD Unavailable [phone] Bri Rollins RN Unavailable Unavailable Werner Swift MD Unavailable Liz Capellan DO Primary Care Provider [phone] Yamsin Restrepo MD Unavailable Jose Do MD Unavailable Reason for Visit * Reason Comments Medication Refill Encounter Details Date Type Department Care Team (Late st Contact Info) Description 09/29/2020 Refill [facility] - Family Medicine [facility] #2 [place] [address] Keith Craft MD #1 [place] [address] Medication Refill Social History Tobacco [...] Outpatient Visits 3 months ago Mixed hyperlipidemia [facility] Family [facility] Keith Lemus MD 5 months ago Pneumonia of right upper lobe due to infectious organism [facility] Keith Lemus MD 8 months ago Acute non-recurrent maxillary sinusitis [facility] Keith Lemus MD 11 months ago Chronic prescription opiate use [facility] Keith Lemus MD 1 year ago Coronary artery disease involving [place] coronary artery of [place] heart without angina pectoris [facility] Keith Lemus MD Upcoming Appointments Future Appointments In 4 days Keith Craft MD [facility] YULIA Mckeon TRUST OFFICER - Recent and Past Visits Recent [...] st Contact Info) Description 04/26/2025 1:30 PM BISQUE KILN PLACER Office Visit [facility] - Pulmonology & Sleep Medicine - [place] [address] [place] [address] Werner Swift MD #2 [place] [address] 05/31/2025 1:20 PM BISQUE KILN PLACER Office Visit [facility] Medical [facility] - Family Medicine - [place] [address] [place] [address] Liz Capellan, DO [address] [address] 06/02/2025 1:30 PM BISQUE KILN PLACER Office Visit [facility] - Endocrinology - [place] #2 [place] [address] Yasmin Restrepo MD #[address] [address] documented as of this encounter Visit Diagnoses Diagnosis Anxiety and depression Dysthymic disorder documented in this encounter Additional Health Concerns Infection Onset Date Last Indicated Resolved Time COVID - 19 01/25/2021 01/25/2021 01/31/2021 8:10 AM CDT Respiratory Rule Out - RPA 01/30/2021 01/30/2021 0 02/01/2021 12:45 AM CDT COVID - 19 07/23/2021 07/23/2021 07/24/2021 6:31 AM BISQUE KILN PLACER COVID - 19 10/19/2021 10/19/2021 10/20/2021 7:45 AM CDT Respiratory Rule Out - RPA 10/19/2021 10/19/2021 0 10/20/2021 2:10 PM CDT Stenotrophomonas maltophilia Comment:Must have a follow up respiratory sample to remove isolation/infection flag. 10/20/2021 10/20/2021 COVID - 19 04/20/2022 04/20/2022 04/30/2022 12:1 8 AM BISQUE KILN PLACER COVID - 19 07/18/2022 07/18/2022 07/28/2022 12:1 6 AM BISQUE KILN PLACER COVID - 19 08/21/2022 08/21/2022 08/22/2022 8:31 AM CDT Respiratory Rule Out - RPA 08/21/2022 08/21/2022 0 08/22/2022 3:21 PM CDT COVID - 19 04/18/2023 04/18/2023 04/28/2023 12:1 6 AM BISQUE KILN PLACER COVID - 19 07/13/2023 07/13/2023 07/23/2023 12:1 6 AM BISQUE KILN PLACER Respiratory Rule Out - RPA 03/17/2024 03/17/2024 1 3:36 PM CDT COVID - 19 04/27/2024 04/27/2024 04/27/2024 2:19 PM BISQUE KILN PLACER Respiratory Rule-Out 07/24/2024 07/24/2024 025 2:29 PM BISQUE KILN PLACER COVID - 19 07/24/2024 07/24/2024 07/24/2024 2:29 PM BISQUE KILN PLACER COVID - 19 08/22/2024 08/22/2024 08/22/2024 11:4 6 PM CDT COVID - 19 09/03/2024 09/03/2024 09/03/2024 12:4 7 PM CDT Assessment Noted Time PHQ-9 Depression Total Score: 2 06/07/19 21 2:34 PM BISQUE KILN PLACER documented as of this encounter Care Teams County Sheriff Relationship Specialty Start Date End Date Keith Craft MD PCP - General Family Medicine 01/14/19 12/26/23 Liz Capellan DO 2 [facility] [address] [place], [place] [id number] PCP - General Family Medicine 12/27/23 Quang Locke DO Gastroenterology 01/18/16 Bri Rollins, RN [place] Hha 03/07/21 05/22/23 [place] [address] [address] 05/25/21 Bri Rollins, RN [place] Nurse Hha 03/07/21 05/23/23 Werner Swift MD #2 [place] [address] Consulting Physician Pulmonary Disease 01/30/22 Yasmin Restrepo MD #[address] [phone] Consulting Physician Endocrinology 07/20/24 Jose Do MD #[address] [address] Consulting Physician Colon and Rectal Surgery 10/12/24 documented as of this encounter
--- OUTSIDE RECORDS SUMMARY | 2025-03-23 14:58 | XMS_ITS | Encounter Summary ---
Author Organization [facility] Address [address] [place] [address] Phone Care Team Providers Care Director Orange Name Role Phone Quang Locke Unavailable [phone] Keith Craft MD Primary Care Provider [phone] Bri Rollins RN Unavailable Unavailable Silvio Schulte MD Unavailable [phone] Bri Rollins RN Unavailable Unavailable Werner Swift MD Unavailable Liz Capellan DO Primary Care Provider [phone] Yasmin Restrepo MD Unavailable Jose Do MD Unavailable Reason for Visit * Reason Comments Medication Refill Encounter Details Date Type Department Care Team (Late st Contact Info) Description 08/03/2022 Refill [facility] #2 [place] [address] Keith Craft MD #1 [place] [address] Medication Refill Social History Tobacco [...] Coronavirus/COVID-19? No / Unsure 07/18/2022 12:40 PM SUCTION DRUM DRIER OPERATOR documented as of this encounter Miscellaneous [...] Provider Dept 07/18/22 Office Visit Kerri Kauffman, STOVE BOTTOM WORKER, TEST HOLE DRILLER [facility]22 Office Visit [facility] 03/02/22 Procedure Visit [facility] 03/[facility]/22 Office Visit Keith Craft MD [facility] [place] 11/03/21 Office Visit Keith Craft MD [facility] [place] 10/19/21 Office Visit Keith Craft MD [facility] [place] 10/05/21 Office Visit Keith Craft MD [facility] [place] 09/08/21 Office Visit Brie Denis, PAC [facility] 08/14/21 Office Visit Keith Craft MD [facility] Showing recent [...] Dept 07/18/22 Office Visit Kerri Kauffman, REBECCA, TEST HOLE DRILLER [facility] [place] 06/07/22 Office Visit Keith Craft MD [facility] [place] 03/02/22 Procedure Visit [facility] DI[facility] RETINAL IM[facility] 03/02/22 Office Visit Keith Craft MD [facility] [place] 11/03/21 Office Visit Keith Craft MD [facility] [place] 10/19/21 Office Visit Keith Craft MD [facility] [place] 10/05/21 Office Visit Keith Craft MD [facility] [place] 09/08/21 Office Visit Brie Denis, PAC [facility] 08/14/21 Office Visit Keith Craft MD [facility] Showing recent visits within past [...] Dept 07/18/22 Office Visit Kerri Kauffman, REBECCA, TEST HOLE DRILLER [facility] 06/07/22 Office Visit Keith Craft MD [facility] [place] 03/02/22 Procedure Visit [facility] DIAB[facility] RET[facility]AL IM[facility] 03/02/22 Office Visit Keith Craft MD [facility] [place] 11/03/21 Office Visit Keith Craft MD [facility] [place] 10/19/21 Office Visit Keith Craft, [facility] 10/05/21 Office Visit Keith Craft MD [facility] [place] 09/08/21 Office Visit Brie Denis, PAC [facility] 08/14/21 [facility] Show[facility] recent visits within past 365 days and meeting all other requirements Future Appointments Date Type Provider Dept 09/10/22 Appointment Keith Craft MD [facility] Showing future appointments within next [...] Range Status 06/07/2022 56.2 <130 mg/dL Final ION DRUM DRIER OPERATOR * Telephone Encounter - Gloria Cornejo RN - 08/03/2022 12:09 PM CST Images from the original note were not included. Rosuvastatin Calcium Dispensed Days Supply Quantity Provider Pharmacy ROSUVASTATIN 20MG TAB 07/30/2022 90 90 Tablet Silvio Schulte MD [facility]/pharmacy #[id number] - W... ROSUVASTATIN 20MG TAB 05/10/2022 90 90 Tablet Keith Craft MD [facility] Bet... ION DRUM DRIER OPERATOR documented in this encounter Plan of Treatment Upcoming Encounters Date Type Department Care Team (Late st Contact Info) Description 04/26/2025 1:30 PM SUCTION DRUM DRIER OPERATOR Office [facility] - Pulmonology & Sleep Medicine - [place] #2 [place] [address] Werenr Swift MD #2 [place] [address] 05/31/2025 1:20 PM SUCTION DRUM DRIER OPERATOR [facility] Visit [facility] - [facility] - [place] [address]2 [place] [address] Liz Capellan, DO 2 [facility]. [address] [place] [address] 06/02/2025 1:30 PM SUCTION DRUM DRIER OPERATOR Office Visit [facility] - Endocrinology - [place] #2 [place] [address] Yasmin Restrepo MD #[address] [phone] documented as of this encounter Goals Goal [...] Zones/Action plan education. I will notify my Workers Compensation Manager if my symptoms fall in the [...] 19 04/18/2023 04/18/2023 04/28/2023 12:1 6 AM SUCTION DRUM DRIER OPERATOR COVID - 19 07/13/2023 07/13/2023 07/23/2023 12:1 6 AM SUCTION DRUM DRIER OPERATOR Respiratory Rule Out - RPA 03/17/2024 03/17/2024 1 3:36 PM CDT COVID - 19 04/27/2024 04/27/2024 04/27/2024 2:19 PM SUCTION DRUM DRIER OPERATOR Respiratory Rule-Out 07/24/2024 07/24/2024 025 2:29 PM SUCTION DRUM DRIER OPERATOR COVID - 19 07/24/2024 07/24/2024 07/24/2024 2:29 PM SUCTION DRUM DRIER OPERATOR COVID - 19 08/22/2024 08/22/2024 08/22/2024 11:4 6 PM CDT COVID - 19 09/03/2024 09/03/2024 09/03/2024 12:4 7 PM CDT Assessment Noted Time PHQ-9 Depression Total Score: 1 03/07/20 21 10:29 AM CDT documented as of this encounter Care Teams Director Orange Relationship Specialty Start Date End Date Keith Craft MD PCP - General Family Medicine 01/14/19 12/26/23 Liz Capellan DO [address] [address] PCP - General Family Medicine 12/27/23 Quang Locke DO Gastroenterology 01/18/16 Bri Rollins, RN [place] Workers Compensation Manager 03/07/21 05/22/23 [place] [id number] [address] 05/25/21 Bri Rollins, RN [place] Nurse Workers Compensation Manager 03/07/21 05/23/23 Werner Swift MD #2 [place] [address] Consulting Physician Pulmonary Disease 01/30/22 Yasmin Restrepo MD #[address] [address] Consulting Physician Endocrinology 07/20/24 Jose Do MD #2 [place]IRA TREADWELL [address] [address] Consulting Physician Colon and Rectal Surgery 10/12/24 documented as of this encounter
--- OUTSIDE RECORDS SUMMARY | 2025-03-23 14:58 | XMS_ITS | Encounter Summary ---
Author Organization [facility] Address [address] [place] [address] Phone Care Team Providers Care Milled Rubber Tender Name Role Phone Quang Locke Unavailable [phone] Keith Craft MD Primary Care Provider [phone] Bri Rollins RN Unavailable Unavailable Silvio Schulte MD Unavailable [phone] Bri Rollins RN Unavailable Unavailable Werenr Swift MD Unavailable Liz Capellan DO Primary Care Provider [phone] Yasmin Restrepo MD Unavailable Jose Do MD Unavailable Reason for Visit * Reason Comments Medication Refill Encounter Details Date Type Department Care Team (Late st Contact Info) Description 03/07/2022 Refill [facility] #2 [place] [address] Keith rCaft MD #1 [place] [address] Medication Refill Social History Tobacco [...] st Contact Info) Description 04/26/2025 1:30 PM USED CAR MAKE READY WORKER Office Visit [facility] - Pulmonology & Sleep Medicine [facility] #2 [place] [address] Werner Swift MD #2 [place] [address] 05/31/2025 1:20 PM USED CAR MAKE READY WORKER Office Visit [facility] - Family Medicine - [place] #2 [facility] [place] [address] Liz Capellan, DO 2 [facility]. [address] [place] [address] 06/02/2025 1:30 PM USED CAR MAKE READY WORKER Office Visit [facility] - Endocrinology - [place] #2 [place] [address] Yasmin Restrepo MD #2 [facility] [address] [place] [address] documented as of this encounter Goals Goal [...] Zones/Action plan education. I will notify my Crane Operator if my symptoms fall in [...] 19 04/20/2022 04/20/2022 04/30/2022 12:1 8 AM USED CAR MAKE READY WORKER COVID - 19 07/18/2022 07/18/2022 07/28/2022 12:1 6 AM USED CAR MAKE READY WORKER COVID - 19 08/21/2022 08/21/2022 08/22/2022 8:31 AM CDT Respiratory Rule Out - RPA 08/21/2022 08/21/2022 0 08/22/2022 3:21 PM CDT COVID - 19 04/18/2023 04/18/2023 04/28/2023 12:1 6 AM USED CAR MAKE READY WORKER COVID - 19 07/13/2023 07/13/2023 07/23/2023 12:1 6 AM USED CAR MAKE READY WORKER Respiratory Rule Out - RPA 03/17/2024 03/17/2024 1 3:36 PM CDT COVID - 19 04/27/2024 04/27/2024 04/27/2024 2:19 PM USED CAR MAKE READY WORKER Respiratory Rule-Out 07/24/2024 07/24/2024 025 2:29 PM USED CAR MAKE READY WORKER COVID - 19 07/24/2024 07/24/2024 07/24/2024 2:29 PM USED CAR MAKE READY WORKER COVID - 19 08/22/2024 08/22/2024 08/22/2024 11:4 6 PM CDT COVID - 19 09/03/2024 09/03/2024 09/03/2024 12:4 7 PM CDT Assessment Noted Time PHQ-9 Depression Total Score: 1 03/07/20 21 10:29 AM CDT documented as of this encounter Care Teams Milled Rubber Tender Relationship Specialty Start Date End Date Keith Craft MD PCP - General Family Medicine 01/14/19 12/26/23 Liz Capellan DO 2 [facility] [address] [place] [address] PCP - General Family Medicine 12/27/23 Quang Locke DO Gastroenterology 01/18/16 Bri Rollins, RN [place] Crane Operator 03/07/21 05/22/23 [place] [id number] [address] 05/25/21 Bri Rollins, RN [place] Nurse Crane Operator 03/07/21 05/23/23 Werner Swift MD #2 [place] [address] Consulting Physician Pulmonary Disease 01/30/22 Yasmin Restrepo MD #[address] [address] Consulting Physician Endocrinology 07/20/24 Jose Do MD #[address] [address] Consulting Physician Colon and Rectal Surgery 10/12/24 documented as of this encounter
--- OUTSIDE RECORDS SUMMARY | 2025-03-23 14:58 | XMS_ITS | Encounter Summary ---
Author Organization [facility] Address [address] [place] [address] Phone Care Team Providers Care Forest Resources Professor Name Role Phone Quang Locke Unavailable [phone] Keith Craft MD Primary Care Provider [phone] Bri oRllins RN Unavailable Unavailable Silvio Schulte MD Unavailable [phone] Bri Rollins RN Unavailable Unavailable Werner Swift MD Unavailable Liz Capellan DO Primary Care Provider Yasmin Restrepo MD Unavailable Jose Do MD Unavailable Reason for Visit * Reason Comments Medication Refill Encounter Details Date Type Department Care Team (Late st Contact Info) Description 01/05/2022 Refill [facility] #2 [place] [address] Keith Craft MD #1 [place] [address] Medication Refill Social History Tobacco [...] [place] 09/08/21 Office Visit Brie Denis PAC [facility] [place] 08/14/21 Office Visit Keith Craft MD [facility] 07/31/21 Office Visit Keith Craft MD [facility] [place] 05/25/21 Office Visit Marcin Anderson, DATA ARCHITECT, PUBLIC RELATIONS SUPERVISOR [facility] [place] 05/05/21 Office Visit Brie Denis PAC [facility] 04/14/21 Office Visit Keith Craft MD [facility] [place] 03/23/21 Office Visit Keith Craft MD [facility] [place] Showing recent visits within past 365 days and meeting all other requirements Future Appointments Date Type Provider Dept 03/09/22 Appointment Keith Craft MD [facility] [place] Showing future appointments within next 90 days and meeting all other requirements documented in this encounter Plan of Treatment Upcoming Encounters Date Type Department Care Team (Late st Contact Info) Description 04/26/2025 1:30 PM DESIZING MACHINE OFFBEARER Office Visit [facility] - Pulmonology & Sleep Medicine - [place] #2 [facility] [place] [address] Werner Swift MD #[address] [facility] [place] [address] 05/31/2025 1:20 PM DESIZING MACHINE OFFBEARER Office Visit [facility] Medical [facility] - Family Medicine - [place] #2 [place] [address] Liz Capellan, DO 2 [facility]. [address] [place] [address] 06/02/2025 1:30 PM DESIZING MACHINE OFFBEARER Office Visit [facility] Medical [facility] - Endocrinology - [place] #2 [facility] [place] [address] Yasmin Restrepo MD #[address] [place] [address] documented as of this encounter Goals Goal [...] Zones/Action plan education. I will notify my Barrel Washer if my symptoms fall in the [...] 19 04/20/2022 04/20/2022 04/30/2022 12:1 8 AM DESIZING MACHINE OFFBEARER COVID - 19 07/18/2022 07/18/2022 07/28/2022 12:1 6 AM DESIZING MACHINE OFFBEARER COVID - 19 08/21/2022 08/21/2022 08/22/2022 8:31 AM CDT Respiratory Rule Out - RPA 08/21/2022 08/21/2022 0 08/22/2022 3:21 PM CDT COVID - 19 04/18/2023 04/18/2023 04/28/2023 12:1 6 AM DESIZING MACHINE OFFBEARER COVID - 19 07/13/2023 07/13/2023 07/23/2023 12:1 6 AM DESIZING MACHINE OFFBEARER Respiratory Rule Out - RPA 03/17/2024 03/17/2024 1 3:36 PM CDT COVID - 19 04/27/2024 04/27/2024 04/27/2024 2:19 PM DESIZING MACHINE OFFBEARER Respiratory Rule-Out 07/24/2024 07/24/2024 025 2:29 PM DESIZING MACHINE OFFBEARER COVID - 19 07/24/2024 07/24/2024 07/24/2024 2:29 PM DESIZING MACHINE OFFBEARER COVID - 19 08/22/2024 08/22/2024 08/22/2024 11:4 6 PM CDT COVID - 19 09/03/2024 09/03/2024 09/03/2024 12:4 7 PM CDT Assessment Noted Time PHQ-9 Depression Total Score: 1 03/07/20 21 10:29 AM CDT documented as of this encounter Care Teams Forest Resources Professor Relationship Specialty Start Date End Date Keith Craft MD PCP - General Family Medicine 01/14/19 12/26/23 Liz Capellan DO [address] [address] PCP - General Family Medicine 12/27/23 Quang Locke DO Gastroenterology 01/18/16 Bri Rollins, KATEY [place] Barrel Washer 03/07/21 05/22/23 [place] [id number] [address] 05/25/21 Bri Rollins RN [place] Nurse Barrel Washer 03/07/21 05/23/23 Werner Swift MD #2 [place] [address] Consulting Physician Pulmonary Disease 01/30/22 Yasmin Restrepo MD #[address] [address] Consulting Physician Endocrinology 07/20/24 Jose Do MD #[address] [address] Consulting Physician Colon and Rectal Surgery 10/12/24 documented as of this encounter
--- OUTSIDE RECORDS SUMMARY | 2025-03-23 14:58 | XMS_ITS | Encounter Summary ---
Author Organization [facility] Address [address] [place] [address] Phone Care Team Providers Care Real Estate Accountant Name Role Phone Quang Locke Unavailable [phone] Keith Craft MD Primary Care Provider [phone] Bri Rollins RN Unavailable Unavailable Silvio Schulte MD Unavailable [phone] Bri Rollins RN Unavailable Unavailable Werner Swift MD Unavailable Liz Capellan DO Primary Care Provider [phone] Yasmin Restrepo MD Unavailable Jose Do MD Unavailable Reason for Visit * Reason Comments Medication Refill Encounter Details Date Type Department Care Team (Late st Contact Info) Description 07/31/2022 Refill [facility] #2 [place] [address] Keith Craft MD #1 [place] [address] Medication Refill Social History Tobacco [...] Coronavirus/COVID-19? No / Unsure 07/18/2022 12:40 PM TOW MOTOR OPERATOR documented as of this encounter Miscellaneous [...] Dept 07/18/22 Office Visit Kerri Kauffman, BAND REAMER MACHINE OPERATOR, EXTRUSION DIE REPAIR MANAGER [facility] 06/07/22 Office Visit Keith Craft MD [facility] 03/02/22 Procedure Visit [facility] 03/02/22 Office Visit Keith Craft MD [facility] 11/03/21 Office Visit Keith Craft MD [facility] 10/19/21 Office Visit Keith Craft MD [facility] 10/05/21 Office Visit Keith Craft MD [facility] [place] 09/08/21 Office Visit Cira YarelyNICOLE [facility] [place] 08/14/21 Office Visit Keith Craft MD [facility] 07/31/21 Office Visit Keith Craft MD [facility] Showing recent visits within past 365 days and meeting all other requirements Future Appointments Date Type Provider Dept 09/10/22 Appointment Keith Craft MD [facility] [place] Showing future appointments within next 90 days and meeting all other requirements MOTOR OPERATOR documented in this encounter Plan of Treatment Upcoming Encounters Date Type Department Care Team (Late st Contact Info) Description 04/26/2025 1:30 PM TOW MOTOR OPERATOR Office Visit [facility] Medical [facility] - Pulmonology & Sleep Medicine - [place] #2 [place] [address] Werner Swift MD #2 [place] [address] 05/31/2025 1:20 PM TOW MOTOR OPERATOR Office Visit [facility] - Family Medicine - [place] #2 [place] [address] Liz Capellan, DO [address] [address] 06/02/2025 1:30 PM TOW MOTOR OPERATOR Office Visit [facility] - Endocrinology - [place] #2 [place] [address] Yasmin Restrepo MD #[address] [phone] documented as of this encounter Goals Goal [...] plan education. I will notify my Glass Bulb Machine Adjuster if my symptoms fall in the [...] 19 04/18/2023 04/18/2023 04/28/2023 12:1 6 AM TOW MOTOR OPERATOR COVID - 19 07/13/2023 07/13/2023 07/23/2023 12:1 6 AM TOW MOTOR OPERATOR Respiratory Rule Out - RPA 03/17/2024 03/17/2024 1 3:36 PM CDT COVID - 19 04/27/2024 04/27/2024 04/27/2024 2:19 PM TOW MOTOR OPERATOR Respiratory Rule-Out 07/24/2024 07/24/2024 025 2:29 PM TOW MOTOR OPERATOR COVID - 19 07/24/2024 07/24/2024 07/24/2024 2:29 PM TOW MOTOR OPERATOR COVID - 19 08/22/2024 08/22/2024 08/22/2024 11:4 6 PM CDT COVID - 19 09/03/2024 09/03/2024 09/03/2024 12:4 7 PM CDT Assessment Noted Time PHQ-9 Depression Total Score: 1 03/07/20 10:29 AM CDT documented as of this encounter Care Teams Real Estate Accountant Relationship Specialty Start Date End Date Keith Craft MD PCP - General Family Medicine 01/14/19 12/26/23 Liz Capellan DO [address] [address] PCP - General Family Medicine 12/27/23 Quang Locke DO Gastroenterology 01/18/16 Bri Rolilns RN [place] Glass Bulb Machine Adjuster 03/07/21 05/22/23 [place] [id number] [address] 05/25/21 Bri Rollins RN [place] Nurse Glass Bulb Machine Adjuster 03/07/21 05/23/23 Werner Swift MD #2 [place] [address] Consulting Physician Pulmonary Disease 01/30/22 Yasmin Restrepo MD #[address] [address] Consulting Physician Endocrinology 07/20/24 Jose Do MD #[address] [address] Consulting Physician Colon and Rectal Surgery 10/12/24 documented as of this encounter
--- OUTSIDE RECORDS SUMMARY | 2025-03-23 14:58 | XMS_ITS | Encounter Summary ---
Author Organization [facility] Address [address] [place] [address] Phone Care Team Providers Care Finished Cloth Examiner Name Role Phone Quang Locke Unavailable [phone] Keith Craft MD Primary Care Provider [phone] Bri Rollins RN Unavailable Unavailable Silvio Schulte MD Unavailable [phone] Bri Rollins RN Unavailable Unavailable Werner Swift MD Unavailable Liz Capellan DO Primary Care Provider Yasmin Restrepo MD Unavailable Jose Do MD Unavailable Reason for Visit * Reason Comments Medication Refill Encounter Details Date Type Department Care Team (Late st Contact Info) Description 03/08/2022 Refill [facility] #2 [place] [address] Keith Craft MD #1 [place] [address] Medication Refill Social History Tobacco Use Types Packs/Day Years Used Date Smoking Tobacco: Former Cigarettes 2 50 1 - 03/16/2018 Smokeless Tobacco: Never Comments:Still uses nictoine patches and gum Alcohol Use Standard Drinks/Week Comments No 0 (1 standard drink = 0.6 oz pur e alcohol) PHQ-2 Answer Date Recorded Total Score - Questions 1-9 0 /0 08/2021 Sexually Active Control Partners Comments Not [...] 03/02/22 Procedure Visit [facility] DIAB[facility]AL [facility] 03/02/22 Office Visit Keith Craft MD [facility] [place] 11/03/21 Office Visit Keith Craft MD [facility] [place] 10/19/21 Office Visit Keith Craft MD [facility] [place] 10/05/21 Office Visit Keith Craft MD [facility] 09/08/21 Office Visit Brie Denis, NICOLE [facility] [place] 08/14/21 Office Visit Keith Craft MD [facility] 07/31/21 Office Visit Keith Craft MD [facility] 05/25/21 Office Visit Marcin Anderson APRN, LITHOGRAPH PRESS FEEDER [facility] 05/05/21 Office Visit Brie Denis, NICOLE [facility] Showing recent visits within past 365 days and meeting all other requirements Future Appointments Date Type Provider Dept 06/04/22 Appointment Keith Craft MD [facility] Showing future appointments within next 90 days and meeting all other requirements documented in this encounter Plan of Treatment Upcoming Encounters Date Type Department Care Team (Late st Contact Info) Description 04/26/2025 1:30 PM NET C DEVELOPER Office Visit [facility] Medical [facility] - Pulmonology & Sleep Medicine - [place] #2 [place] [address] Werner Swift MD #2 [place] [address] 05/31/2025 1:20 PM NET C DEVELOPER Office Visit [facility] Medical [facility] - Family Medicine - [place] #2 [place] [address] Liz Capellan, DO 2 [facility] [address] [place] [address] 06/02/2025 1:30 PM NET C DEVELOPER Office Visit [facility] - Endocrinology - [place] #2 [place] [address] Yasmin Restrepo MD #[address] [place] [address] documented as of this encounter Goals Goal [...] plan education. I will notify my Service Plumber if my symptoms fall in the y [...] 04/20/2022 04/20/2022 04/30/2022 12:1 8 AM NET C DEVELOPER COVID - 19 07/18/2022 07/18/2022 07/28/2022 12:1 6 AM NET C DEVELOPER COVID - 19 08/21/2022 08/21/2022 08/22/2022 8:31 AM CDT Respiratory Rule Out - RPA 08/21/2022 08/21/2022 0 08/22/2022 3:21 PM CDT COVID - 19 04/18/2023 04/18/2023 04/28/2023 12:1 6 AM NET C DEVELOPER COVID - 19 07/13/2023 07/13/2023 07/23/2023 12:1 6 AM NET C DEVELOPER Respiratory Rule Out - RPA 03/17/2024 03/17/2024 1 3:36 PM CDT COVID - 19 04/27/2024 04/27/2024 04/27/2024 2:19 PM NET C DEVELOPER Respiratory Rule-Out 07/24/2024 07/24/2024 025 2:29 PM NET C DEVELOPER COVID - 19 07/24/2024 07/24/2024 07/24/2024 2:29 PM NET C DEVELOPER COVID - 19 08/22/2024 08/22/2024 08/22/2024 11:4 6 PM CDT COVID - 19 09/03/2024 09/03/2024 09/03/2024 12:4 7 PM CDT Assessment Noted Time PHQ-9 Depression Total Score: 1 03/07/20 10:29 AM CDT documented as of this encounter Care Teams Finished Cloth Examiner Relationship Specialty Start Date End Date Keith Craft MD PCP - General Family Medicine 01/14/19 12/26/23 Liz Capellan DO [address] [id number] PCP - General Family Medicine 12/27/23 Quang Locke DO Gastroenterology 01/18/16 Bri Rollins RN [place] Service Plumber 03/07/21 05/22/23 [place] [address] [address] 05/25/21 Bri Rollins RN [place] Nurse Service Plumber 03/07/21 05/23/23 Werner Swift MD #2 [place] [address] Consulting Physician Pulmonary Disease 01/30/22 Yasmin Restrepo MD #2 [facility] [address] [place] [address] Consulting Physician Endocrinology 07/20/24 Jose Do MD #[address] [address] Consulting Physician Colon and Rectal Surgery 10/12/24 documented as of this encounter
--- OUTSIDE RECORDS SUMMARY | 2025-03-23 14:58 | XMS_ITS | Encounter Summary ---
Author Organization [facility] Address [address] [place] [address] Phone Care Team Providers Care Airplane And Engine Inspector Name Role Phone Quang Locke Unavailable [phone] Keith Craft MD Primary Care Provider [phone] Bri Rollins RN Unavailable Unavailable Silvio Schulte MD Unavailable [phone] Bri Rollins RN Unavailable Unavailable Werner Swift MD Unavailable Liz Capellan DO Primary Care Provider [phone] Yasmin Restrepo MD Unavailable Jose Do MD Unavailable Reason for Visit * Reason Comments Medication Refill Encounter Details Date Type Department Care Team (Late st Contact Info) Description 05/01/2022 Refill [facility] #2 [place] [address] Keith Craft MD #1 [place] [address] Medication Refill Social History Tobacco [...] Coronavirus/COVID-19? No / Unsure 05/01/2022 1:41 PM WAREHOUSE INSULATION WORKER documented as of this encounter Miscellaneous [...] 03/02/22 Office Visit Keith Craft MD [facility] 11/03/21 Office Visit Keith Craft MD [facility] [place] 10/19/21 Office Visit Keith Craft MD [facility] [place] 10/05/21 Office Visit Keith Craft MD [facility] [place] 09/08/21 Office Visit Brie Denis, [facility] [place] 08/14/21 Office Visit Keith Craft MD [facility] 07/31/21 Office Visit Keith Craft MD [facility] 05/25/21 Office Visit Marcin Anderson, REBECCA, SHOE STITCHER ODD [facility] 05/05/21 Office Visit Brie Denis, PAC [facility] Showing recent visits within past 365 days and meeting all other requirements Future Appointments Date Type Provider Dept 06/04/22 Appointment Keith Craft MD [facility] Showing future appointments within next 90 days and meeting all other requirements HOUSE INSULATION WORKER documented in this encounter Plan of Treatment Upcoming Encounters Date Type Department Care Team (Late st Contact Info) Description 04/26/2025 1:30 PM WAREHOUSE INSULATION WORKER Office Visit [facility] - Pulmonology & Sleep Medicine - [place] #2 [place] [address] Werner Swift MD #2 [place] [address] 05/31/2025 1:20 PM WAREHOUSE INSULATION WORKER Office Visit [facility] - Family Medicine - [place] #2 [place] [address] Liz Capellan, DO [address] [address] 06/02/2025 1:30 PM WAREHOUSE INSULATION WORKER Office Visit [facility] - Endocrinology - [place] [address]2 [place] [address] Yasmin Restrepo MD #[address] [phone] documented as of this encounter Goals Goal [...] Zones/Action plan education. I will notify my Serology Teacher if my symptoms fall in the [...] 19 07/18/2022 07/18/2022 07/28/2022 12:1 6 AM WAREHOUSE INSULATION WORKER COVID - 19 08/21/2022 08/21/2022 08/22/2022 8:31 AM CDT Respiratory Rule Out - RPA 08/21/2022 08/21/2022 0 08/22/2022 3:21 PM CDT COVID - 19 04/18/2023 04/18/2023 04/28/2023 12:1 6 AM WAREHOUSE INSULATION WORKER COVID - 19 07/13/2023 07/13/2023 07/23/2023 12:1 6 AM WAREHOUSE INSULATION WORKER Respiratory Rule Out - RPA 03/17/2024 03/17/2024 1 3:36 PM CDT COVID - 19 04/27/2024 04/27/2024 04/27/2024 2:19 PM WAREHOUSE INSULATION WORKER Respiratory Rule-Out 07/24/2024 07/24/2024 025 2:29 PM WAREHOUSE INSULATION WORKER COVID - 19 07/24/2024 07/24/2024 07/24/2024 2:29 PM WAREHOUSE INSULATION WORKER COVID - 19 08/22/2024 08/22/2024 08/22/2024 11:4 6 PM CDT COVID - 19 09/03/2024 09/03/2024 09/03/2024 12:4 7 PM CDT Assessment Noted Time PHQ-9 Depression Total Score: 1 03/07/20 10:29 AM CDT documented as of this encounter Care Teams Airplane And Engine Inspector Relationship Specialty Start Date End Date Keith Craft MD PCP - General Family Medicine 01/14/19 12/26/23 Liz Capellan DO [address] [address] PCP - General Family Medicine 12/27/23 Quang Locke DO Gastroenterology 01/18/16 Bri Rollins RN [place] Serology Teacher 03/07/21 05/22/23 [place] [id number] [address] 05/25/21 Bri Rollins RN [place] Nurse Serology Teacher 03/07/21 05/23/23 Werner Swift MD #2 [place] [address] Consulting Physician Pulmonary Disease 01/30/22 Yasmin Restrepo MD #[address] [address] Consulting Physician Endocrinology 07/20/24 Jose Do MD #[address] [address] Consulting Physician Colon and Rectal Surgery 10/12/24 documented as of this encounter
--- OUTSIDE RECORDS SUMMARY | 2025-03-23 14:58 | XMS_ITS | Encounter Summary ---
Author Organization [facility] Address [address] [place] [address] Phone Care Team Providers Care Certified Pedorthotist Name Role Phone Quang Locke Unavailable [phone] Keith Craft MD Primary Care Provider [phone] Bri Rollins RN Unavailable Unavailable Silvio Schulte MD Unavailable [phone] Bri Rollins RN Unavailable Unavailable Werner Swift MD Unavailable Liz Capellan DO Primary Care Provider [phone] Yasmin Restrepo MD Unavailable Jose Do MD Unavailable Reason for Visit * Reason Comments Medication Refill Encounter Details Date Type Department Care Team (Late st Contact Info) Description 08/30/2022 Refill [facility] #2 [place] [address] Keith Craft MD [address]1 [place] [address] Medication Refill Social History Tobacco [...] Provider Dept 07/18/22 Office Visit Kerri Kauffman, CLUTCH REBUILDER, DIRECTOR OF INDUSTRIAL RELATIONS [facility] 06/07/22 Office Visit [facility] MD [facility] [place] 03/02/22 Procedure Visit [facility] Office Visit Keith Craft MD [facility] 11/03/21 Office Visit Keith Craft MD [facility] 10/19/21 Office Visit Keith Craft MD [facility] 10/05/21 [facility] 09/08[facility]21 Office Visit Brie Denis, [facility] Showing recent visits within past 365 days and meeting all other requirements Future Appointments Date Type Provider Dept 09/10/22 Appointment Keith Craft MD [facility] Showing future appointments within next 90 days and meeting all other requirements Passed - Active short-acting beta agonist prescription ergocalciferol (VITAMIN D) 32402 UNIT Capsule [Pharmacy Med Name: VITAMIN D [id number] CAPSULE] 12 Capsule 0 Sig: TAKE ONE CAPSULE BY MOUTH ONE TIME WEEKLY Vitamin Supplements (Adult) Protocol Failed - 08/30/2022 10:50 AM Failed - Vitamin D less than 1.25mg Passed - Visit with relevant provider in past 12 months or upcoming 90 days Recent Visits Date Type Provider Dept 07/18/22 Office Visit Kerri Kauffman, CLUTCH REBUILDER, DIRECTOR OF INDUSTRIAL RELATIONS [facility] 06/07/22 [facility] 03/02[facility]22 Procedure Visit [facility] [place] 03/02/22 Office Visit Keith Craft MD [facility] 11/03/21 Office Visit Keith Craft MD [facility] 10/19/21 Office Visit Keith Craft MD [facility] 10/05/21 Office Visit Keith Craft MD [facility] 09/08/21 Office [facility] Showing recent visits within past 365 days and meeting all other requirements Future Appointments Date Type Provider Dept 09/10/22 Appointment Keith Craft MD [facility] Showing future appointments within next [...] Provider Dept 07/18/22 Office Visit Kerri Kauffman, CLUTCH REBUILDER, DIRECTOR OF INDUSTRIAL RELATIONS [facility] 06/07/22 Office Visit Keith Craft MD [facility] [place] 03/02/22 Procedure Visit [facility]AB[facility] RETINAL IMAG[facility] [place] 03/02/22 Office Visit Keith Craft MD [facility] [place] 11/03/21 Office Visit Keith Craft MD [facility] [place] 10/19/21 Office Visit Keith Craft MD [facility] [place] 10/05/21 Office Visit Keith [facility] MD [facility] [place] 09/08/21 Office Visit Brie Denis, [facility] [place] Showing recent visits within past 365 days and meeting all other requirements Future Appointments Date Type Provider Dept 09/10/22 Appointment Keith Craft MD [facility] [place] Showing future appointments within next 90 days and meeting all other requirements documented in this encounter Plan of Treatment Upcoming Encounters Date Type Department Care Team (Late st Contact Info) Description 04/26/2025 1:30 PM PROCEDURES TECH Office Visit [facility] - Pulmonology & Sleep Medicine - [place] #2 [place] [address] Werner Swift MD #2 [place] [address] 05/31/2025 1:20 PM PROCEDURES TECH Office [facility] - Family Medicine - [place] [address]2 [place] [address] Liz Capellan, DO [address] [address] 06/02/2025 1:30 PM PROCEDURES TECH Office Visit [facility] - Endocrinology - [place] [address] [place] [address] Yasmin Restrepo MD [address] [place] [address] [address] documented as of this encounter Goals Goal [...] Zones/Action plan education. I will notify my Storage Battery Inspector And Tester if my symptoms fall in [...] 19 04/18/2023 04/18/2023 04/28/2023 12:1 6 AM PROCEDURES TECH COVID - 19 07/13/2023 07/13/2023 07/23/2023 12:1 6 AM PROCEDURES TECH Respiratory Rule Out - RPA 03/17/2024 03/17/2024 1 3:36 PM CDT COVID - 19 04/27/2024 04/27/2024 04/27/2024 2:19 PM PROCEDURES TECH Respiratory Rule-Out 07/24/2024 07/24/2024 025 2:29 PM PROCEDURES TECH COVID - 19 07/24/2024 07/24/2024 07/24/2024 2:29 PM PROCEDURES TECH COVID - 19 08/22/2024 08/22/2024 08/22/2024 11:4 6 PM CDT COVID - 19 09/03/2024 09/03/2024 09/03/2024 12:4 7 PM CDT Assessment Noted Time PHQ-9 Depression Total Score: 1 03/07/20 10:29 AM CDT documented as of this encounter Care Teams Certified Pedorthotist Relationship Specialty Start Date End Date Keith Craft MD PCP - General Family Medicine 01/14/19 12/26/23 Liz Capellan DO [address] [id number] PCP - General Family Medicine 12/27/23 Quang Locke DO Gastroenterology 01/18/16 Bri Rollins, KATEY [place] Storage Battery Inspector And Tester 03/07/21 05/22/23 [place] [id number] [address] 05/25/21 Bri Rollins RN [place] Nurse Storage Battery Inspector And Tester 03/07/21 05/23/23 Werner Swift MD #2 [place] [address] Consulting Physician Pulmonary Disease 01/30/22 Yasmin Restrepo MD [address] [address] Consulting Physician Endocrinology 07/20/24 Jose Do MD [facility] [address] [address] Consulting Physician Colon and Rectal Surgery 10/12/24 documented as of this encounter
--- OUTSIDE RECORDS SUMMARY | 2025-03-23 14:58 | XMS_ITS | Encounter Summary ---
Author Organization [facility] Address [address] [place] [address] Phone Care Team Providers Care Cross Tie Tram Loader Name Role Phone Quang Locke Unavailable [phone] Keith Craft MD Primary Care Provider [phone] Bri Rollins RN Unavailable Unavailable Silvio Schulte MD Unavailable [phone] Bri Rollins RN Unavailable Unavailable Werner Swift MD Unavailable Liz Capellan DO Primary Care Provider [phone] Yasmin Restrepo MD Unavailable Jose Do MD Unavailable Reason for Visit * Reason Comments Medication Refill Encounter Details Date Type Department Care Team (Late st Contact Info) Description 10/11/[address] [facility] [address] [place] [address] Keith Craft MD [address] [place] [address] Medication Refill Social History Tobacco [...] 8 months ago Acute non-recurrent maxillary sinusitis [facility] Keith Jenkins MD 11 months ago Chronic prescription opiate use [facility] Ketih Jenkins MD Upcoming Appointments Future Appointments Today [facility] months [facility] SURFACING TECHNICIAN - Recent and Past Visits Recent Visits Date Type Provider Dept 10/04/20 Office Visit Keith Craft MD [facility] 06/07/20 Office Visit Keith Craft MD [facility] 04/25/20 Office Visit Keith Craft MD [facility] 02/02/20 Office Visit Keith Craft MD [facility] 11/02/19 Office Visit Keith Craft MD [facility] 07/27/19 Office Visit Keith Craft MD [facility] Showing recent visits within [...] Contact Info) Description 04/26/2025 1:30 PM DIRECTOR PHYSICAL Office Visit [facility] - Pulmonology & Sleep Medicine - [place] #2 [place] [address] Werner Swift MD #2 [place] [address] 05/31/2025 1:20 PM DIRECTOR PHYSICAL Office Visit [facility] - Family Medicine - [place] #[address] [place] [address] Liz Capellan, DO 2 [facility] [address] [place] [address] 06/02/2025 1:30 PM DIRECTOR PHYSICAL Office Visit [facility] - Endocrinology - [place] #2 [place] [address] Yasmin Restrepo MD [address] [address] documented as of this encounter Visit Diagnoses Not on filedocumented in this encounter Additional Health Concerns Infection Onset Date Last Indicated Resolved Time COVID - 19 01/25/2021 01/25/2021 01/31/2021 8:10 AM CDT Respiratory Rule Out - RPA 01/30/2021 01/30/2021 0 02/01/2021 12:45 AM CDT COVID - 19 07/23/2021 07/23/2021 07/24/2021 6:31 AM DIRECTOR PHYSICAL COVID - 19 10/19/2021 10/19/2021 10/20/2021 7:45 AM CDT Respiratory Rule Out - RPA 10/19/2021 10/19/2021 0 10/20/2021 2:10 PM CDT Stenotrophomonas maltophilia Comment:Must have a follow up respiratory sample to remove isolation/infection flag. 10/20/2021 10/20/2021 COVID - 19 04/20/2022 04/20/2022 04/30/2022 12:1 8 AM DIRECTOR PHYSICAL COVID - 19 07/18/2022 07/18/2022 07/28/2022 12:1 6 AM DIRECTOR PHYSICAL COVID - 19 08/21/2022 08/21/2022 08/22/2022 8:31 AM CDT Respiratory Rule Out - RPA 08/21/2022 08/21/2022 0 08/22/2022 3:21 PM CDT COVID - 19 04/18/2023 04/18/2023 04/28/2023 12:1 6 AM DIRECTOR PHYSICAL COVID - 19 07/13/2023 07/13/2023 07/23/2023 12:1 6 AM DIRECTOR PHYSICAL Respiratory Rule Out - RPA 03/17/2024 03/17/2024 1 3:36 PM CDT COVID - 19 04/27/2024 04/27/2024 04/27/2024 2:19 PM DIRECTOR PHYSICAL Respiratory Rule-Out 07/24/2024 07/24/2024 2:29 PM DIRECTOR PHYSICAL COVID - 19 07/24/2024 07/24/2024 07/24/2024 2:29 PM DIRECTOR PHYSICAL COVID - 19 08/22/2024 08/22/2024 08/22/2024 11:4 6 PM CDT COVID - 19 09/03/2024 09/03/2024 09/03/2024 12:4 7 PM CDT Assessment Noted Time PHQ-9 Depression Total Score: 2 06/07/19 21 2:34 PM DIRECTOR PHYSICAL documented as of this encounter Care Teams Cross Tie Tram Loader Relationship Specialty Start Date End Date Keith Craft MD PCP - General Family Medicine 01/14/19 12/26/23 Liz Capellan DO [address] [address] PCP - General Family Medicine 12/27/23 Quang Locke DO Gastroenterology 01/18/16 Bri Rollins RN [place] Black Belt 03/07/21 05/22/23 [place] [address] [address] 05/25/21 Bri Rollins, RN [place] Nurse Black Belt 03/07/21 05/23/23 Werner Swift MD #2 [place] [address] Consulting Physician Pulmonary Disease 01/30/22 Yasmin Restrepo MD #[address] [address] Consulting Physician Endocrinology 07/20/24 Jose Do MD #[address] [address] Consulting Physician Colon and Rectal Surgery 10/12/24 documented as of this encounter
--- OUTSIDE RECORDS SUMMARY | 2025-03-23 14:58 | XMS_ITS | Encounter Summary ---
Author Organization [facility] Address [address] [place] [address] Phone Care Team Providers Care Welder And Fitter Name Role Phone Quang Locke Unavailable [phone] Keith Craft MD Primary Care Provider [phone] Bri Rollins RN Unavailable Unavailable Silvio Schulte MD Unavailable [phone] Bri Rollins RN Unavailable Unavailable Werner Swift MD Unavailable Liz Capellan DO Primary Care Provider [phone] Yasmin Restrepo MD Unavailable Jose Do MD Unavailable Reason for Visit * Reason Comments Medication Refill Encounter Details Date Type Department Care Team (Late st Contact Info) Description 04/02/2022 Refill [facility] #2 [place] [address] Keith Craft MD #1 [place] [address] Medication Refill Social History Tobacco [...] Coronavirus/COVID-19? No / Unsure 04/03/2022 9:15 AM STRAINER CLEANER documented as of this encounter Miscellaneous Notes [...] [place] 09/08/21 Office Visit Brie Denis, NICOLE [facility] [place] 08/14/21 Office Visit Keith Craft MD [facility] 07/31/21 Office Visit Keith Craft MD [facility] 05/25/21 Office Visit Marcin Anderson APRN, LEGAL FINANCIAL SPECIALIST [facility] 05/05/21 Office Visit Brie Denis, PAC [facility] Showing recent visits within past 365 days and meeting all other requirements Future Appointments Date Type Provider Dept 06/04/22 Appointment Keith Craft MD [facility] Showing future appointments within next 90 days and meeting all other requirements INER CLEANER documented in this encounter Plan of Treatment Upcoming Encounters Date Type Department Care Team (Late st Contact Info) Description 04/26/2025 1:30 PM STRAINER CLEANER [facility] - Pulmonology & Sleep Medicine - [place] #2 [place] [address] Werner Swift MD #2 [place] [address] 05/31/2025 1:20 PM STRAINER CLEANER Office Visit [facility] - Family Medicine - [place] #2 [place] [address] Liz Capellan, DO [address] [address] 06/02/2025 1:30 PM STRAINER CLEANER Office Visit [facility] - Endocrinology - [place] #2 [place] [address] Yasmin Restrepo MD #[address] [phone] documented as of this encounter Goals Goal [...] Zones/Action plan education. I will notify my Audio/Visual Manager if my symptoms fall in the [...] 19 04/20/2022 04/20/2022 04/30/2022 12:1 8 AM STRAINER CLEANER COVID - 19 07/18/2022 07/18/2022 07/28/2022 12:1 6 AM STRAINER CLEANER COVID - 19 08/21/2022 08/21/2022 08/22/2022 8:3 1 AM CDT Respiratory Rule Out - RPA 08/21/2022 08/21/2022 0 08/22/2022 3:21 PM CDT COVID - 19 04/18/2023 04/18/2023 04/28/2023 12:1 6 AM STRAINER CLEANER COVID - 19 07/13/2023 07/13/2023 07/23/2023 12:1 6 AM STRAINER CLEANER Respiratory Rule Out - RPA 03/17/2024 03/17/2024 1 3:36 PM CDT COVID - 19 04/27/2024 04/27/2024 04/27/2024 2:19 PM STRAINER CLEANER Respiratory Rule-Out 07/24/2024 07/24/2024 025 2:29 PM STRAINER CLEANER COVID - 19 07/24/2024 07/24/2024 07/24/2024 2:29 PM STRAINER CLEANER COVID - 19 08/22/2024 08/22/2024 08/22/2024 11:4 6 PM CDT COVID - 19 09/03/2024 09/03/2024 09/03/2024 12:4 7 PM CDT Assessment Noted Time PHQ-9 Depression Total Score: 1 03/07/20 21 10:29 AM CDT documented as of this encounter Care Teams Welder And Fitter Relationship Specialty Start Date End Date Keith Craft MD PCP - General Family Medicine 01/14/19 12/26/23 Liz Capellan DO [address] [phone] PCP - General Family Medicine 12/27/23 Quang Locke DO Gastroenterology 01/18/16 Bri Rollins, KATEY [place] Audio/Visual Manager 03/07/21 05/22/23 [place] [id number] [address] 05/25/21 Bri Rollins RN [place] Nurse Audio/Visual Manager 03/07/21 05/23/23 Werner Swift MD #2 [place] [address] Consulting Physician Pulmonary Disease 01/30/22 Yasmin Restrepo MD #[address] [address] Consulting Physician Endocrinology 07/20/24 Jose Do MD #[address] [address] Consulting Physician Colon and Rectal Surgery 10/12/24 documented as of this encounter
--- OUTSIDE RECORDS SUMMARY | 2025-03-23 14:58 | XMS_ITS | Encounter Summary ---
Author Organization [facility] Address [address] [place] [address] Phone Care Team Providers Care Manager Of Tax Name Role Phone Quang Locke DO Unavailable [phone] Keith Craft MD Primary Care Provider [phone] Silvio Schulte MD Unavailable [phone] Werner Swift MD Unavailable Liz Capellan DO Primary Care Provider Yasmin Restrepo MD Unavailable Jose Do MD Unavailable Encounter Details Date Type Department Care Team (Late st Contact Info) Description 08/12/2023 Lab Requisition [facility] [address] [place] [address] Keith Craft MD #1 [place] [address] Urinary tract infection, site not specified Social [...] any clubs o r organizations such as zoroastrianism groups, unions, fraternal or athletic groups, or [...] Total Score - Questions 1-9 0 08/2021 [facility] [place] of Occupat ional Health - Occupational Stress [...] things Not at all 08/15/2023 1:28 PM ALAINAT Amparo Frankel MA Feeling down, depressed, or hopeless Not [...] st Contact Info) Description 04/26/2025 1:30 PM SOCIAL MEDIA MANAGER Office Visit [facility] - Pulmonology & Sleep Medicine - [place] #2 [facility] [place] [address] Werner Swift MD #2 [place] [address] 05/31/2025 1:20 PM SOCIAL MEDIA MANAGER Office Visit [facility] - Family Medicine - [place] #2 [facility] [address] Liz Capellan, DO 2 [facility] [address] [place] [address] 06/02/2025 1:30 PM SOCIAL MEDIA MANAGER Office Visit [facility] - Endocrinology - [place] #2 [facility] [place] [address] Yasmin Restrepo MD #[address] [place] [address] documented as of this encounter Goals Goal [...] Zones/Action plan education. I will notify my Model Maker Plaster if my symptoms fall in [...] ESCHERICHIA COLI 08/14/2023 3:30 PM CDT [facility] Comment:PRESUMPTIVE IDENTIFI CATION Culture URINE [...] IIB <=16 mcg/ml: Susceptible Escherichia coli Piperacillin/Tazobactam [facility] II B <=4 mcg/ml: Susceptible Escherichia coli Tobramycin [facility] IIB <=1 mcg/ml: Susceptible Escherichia coli Trimeth/Sulfamethoxazole [facility] I IB >=320 mcg/ml: Resistant us Keith Craft MD MICROBIOLOGY - GENERAL ORDERABLE S Final Result [facility] [address] [place] [address], * (ABNORMAL) URINALYSIS REFLEX IF INDICATED BY ABNORMAL RESULTS (08/12/2023 1:05 PM CDT) SPECIFIC GRAVITY 1.015 1.003 - 1.030 08/12/2023 1:44 PM CDT [facility] URINE PH 6.0 5.0 - 9.0 08/12/2023 1:44 PM CDT [facility] WBC ESTERASE 500 /uL(A) Negative 08/12/2023 1:44 PM CDT [facility] NITRITE Negative Negative 08/12/2023 1:44 PM CDT [facility] PROTEIN, RANDOM URINE 100 mg/dL(A) Negative 08/12/2023 1:44 PM CDT [facility] URINE GLUCOSE, QUAL 1000 mg/dL(A) Negative 08/12/2023 1:44 PM CDT [facility] URINE KETONES Negative Negative 08/12/2023 1:44 PM CDT [facility] UROBILINOGEN Normal Normal mg/dL 08/12/2023 1:44 PM CDT [facility] URINE BLOOD 50 /uL(A) Negative bharathi/ul 08/12/2023 1:44 PM CDT [facility] URINALYSIS COLOR Yellow 08/12/19 1:44 PM CDT [facility] URINALYSIS CLARITY Very Cloudy 08/12/2023 1:44 PM CDT [facility] WBC (Urine) Packed(A) Negative, 0-5 /hpf 08/12/2023 1:44 PM CDT [facility] URINE RBC'S 0-2 Negative, 0-2 /hpf 08/12/2023 1:44 PM CDT [facility] EPITHELIAL CELLS Negative /lpf 08/12/19 24 1:44 PM CDT [facility] BACTERIA, URINE Many(A) Negative /hpf 08/12/2023 1:44 PM CDT [facility] Urine Non-Phlebotomy Collection / Unknown 08/12/2023 1:05 PM CDT 08/12/2023 1:29 PM CDT Keith Craft MD URINE ORDERABLES Final Result [facility] #1 [place] [address] documented in this encounter Visit Diagnoses Diagnosis Urinary tract infection, site not specified documented in this encounter Additional Health Concerns Infection Onset Date Last Indicated Resolved Time Stenotrophomonas maltophilia Comment:Must have a follow up respiratory sample to remove isolation/infection flag. 10/20/2021 10/20/2021 Respiratory Rule Out - RPA 03/17/2024 03/17/2024 1 3:36 PM CDT COVID - 19 04/27/2024 04/27/2024 04/27/2024 2:19 PM SOCIAL MEDIA MANAGER Respiratory Rule-Out 07/24/2024 07/24/2024 025 2:29 PM SOCIAL MEDIA MANAGER COVID - 19 07/24/2024 07/24/2024 07/24/2024 2:29 PM SOCIAL MEDIA MANAGER COVID - 19 08/22/2024 08/22/2024 08/22/2024 11:4 6 PM CDT COVID - 19 09/03/2024 09/03/2024 09/03/2024 12:4 7 PM CDT Assessment Noted Time PHQ-9 Depression Total Score: 1 03/07/20 21 10:29 AM CDT documented as of this encounter Care Teams Manager Of Tax Relationship Specialty Start Date End Date Keith Craft MD PCP - General Family Medicine 01/14/19 12/26/23 Liz Capellan DO 2 [facility] [address] [place] [address] PCP - General Family Medicine 12/27/23 Quang oLcke DO Gastroenterology 01/18/16 [place] [address] [address] 05/25/21 Werner Swift MD #2 [place] [phone] Consulting Physician Pulmonary Disease 01/30/22 Yasmin Restrepo MD #[address] [address] Consulting Physician Endocrinology 07/20/24 Jose Do MD #[address] [address] Consulting Physician Colon and Rectal Surgery 10/12/24 documented as of this encounter
--- OUTSIDE RECORDS SUMMARY | 2025-03-23 14:59 | XMS_ITS | Encounter Summary ---
Author Organization [facility] Address [address] [place] [address] Phone Care Team Providers Care Predatory Animal Hunter Name Role Phone Quang Locke Unavailable [phone] Keith Craft MD Primary Care Provider [phone] Silvio Schulte MD Unavailable [phone] Werner Swift MD Unavailable Liz Capellan DO Primary Care Provider [phone] Yasmin Restrepo MD Unavailable Jose Do MD Unavailable Reason for Visit * Reason Comments Medication Refill Encounter Details Date Type Department Care Team (Late st Contact Info) Description 08/07/2023 Refill [facility] - Family Medicine [facility] #2 [place] [address] Keith Craft MD #1 [place] [address] Medication Refill Social History Tobacco Use Types Packs/Day Years Used Date Smoking Tobacco: Former Cigarettes 2 50 1 - 03/16/2018 Smokeless Tobacco: Never Comments:Still uses nictoine patches and gum Alcohol Use Standard Drinks/Week Comments No 0 (1 standard drink = 0.6 oz pur e alcohol) [facility] Utilities Answer Date Recorded In [...] you attend chur ch or episcopal services? Never 07/13/2023 Do you belong to [...] Total Score - Questions 1-9 0 08/2021 [facility] [place] of Occupat ional Health - Occupational Stress [...] Tesf[place] 09/10/22 Office Visit Keith Craft MD [facility] Showing recent visits within past 365 days and meeting all other requirements Future Appointments Date Type Provider Dept 08/15/23 Appointment Keith Craft MD [facility] Showing future appointments within next 90 days and meeting all other requirements documented in this encounter Plan of Treatment Upcoming Encounters Date Type Department Care Team (Late st Contact Info) Description 04/26/2025 1:30 PM CARPET RENOVATOR Office Visit [facility] Medical [facility] - Pulmonology & Sleep Medicine - [place] #2 [place] [address] Werner Swift MD #2 [place] [address] 05/31/2025 1:20 PM CARPET RENOVATOR Office Visit [facility] Medical [facility] - Family Medicine - [place] #2 [place] [address] Liz Capellan, DO [address] [address] 06/02/2025 1:30 PM CARPET RENOVATOR Office Visit [facility] Medical [facility] - Endocrinology - [place] #2 [place] [address] Yasmin Restrepo MD #[address] [place] [address] documented as of this encounter Goals Goal [...] plan education. I will notify my Fire Control Technician G if my symptoms fall in the y [...] - 19 04/27/2024 04/27/2024 04/27/2024 2:19 PM CARPET RENOVATOR Respiratory Rule-Out 07/24/2024 07/24/2024 025 2:29 PM CARPET RENOVATOR COVID - 19 07/24/2024 07/24/2024 07/24/2024 2:29 PM CARPET RENOVATOR COVID - 19 08/22/2024 08/22/2024 08/22/2024 11:4 6 PM CDT COVID - 19 09/03/2024 09/03/2024 09/03/2024 12:4 7 PM CDT Assessment Noted Time PHQ-9 Depression Total Score: 1 03/07/20 21 10:29 AM CDT documented as of this encounter Care Teams Predatory Animal Hunter Relationship Specialty Start Date End Date Keith Craft MD PCP - General Family Medicine 01/14/19 12/26/23 Liz Capellan DO [address] [id number] PCP - General Family Medicine 12/27/23 Quang Locke DO Gastroenterology 01/18/16 [place] [address] [address] 05/25/21 Werner Swift MD #2 [place] [address] Consulting Physician Pulmonary Disease 01/30/22 Yasmin Restrepo MD #[address] [address] Consulting Physician Endocrinology 07/20/24 Jose Do MD #[address] [address] Consulting Physician Colon and Rectal Surgery 10/12/24 documented as of this encounter
--- OUTSIDE RECORDS SUMMARY | 2025-03-23 14:59 | XMS_ITS | Encounter Summary ---
Author Organization [facility] Address [address] [place] [address] Phone Care Team Providers Care Inspector Packer Glass Container Name Role Phone Quang Locke Unavailable [phone] Keith Craft MD Primary Care Provider [phone] Bri Rollins RN Unavailable Unavailable Silvio Schulte MD Unavailable [phone] Bri Rollins RN Unavailable Unavailable Werner Swift MD Unavailable Liz Capellan DO Primary Care Provider [phone] Yasmin Restrepo MD Unavailable Jose Do MD Unavailable Reason for Visit * Reason Comments Medication Refill Encounter Details Date Type Department Care Team (Late st Contact Info) Description 07/11/2020 Refill [facility] - Family Medicine [facility] #2 [place] [address] Keith Craft MD #1 [place] [address] Medication Refill Social History Tobacco [...] COVID-19? No / Unsure 07/02/2020 2:53 PM COOK FRUIT documented as of this encounter Miscellaneous Notes [...] Outpatient Visits 1 month ago Mixed hyperlipidemia [facility] Medical [facility] - Family Medicine Keith Lemus MD 2 months ago Pneumonia of right upper lobe due to infectious organism [facility] Family Medicine - Keith Jenkins MD 5 months ago Acute non-recurrent maxillary sinusitis [facility] Medicine Keith Lemus MD 8 months ago Chronic prescription opiate use [facility] Keith Lemus MD 11 months ago Coronary artery disease involving [place] coronary artery of [place] heart without angina pectoris [facility] - Keith Jenkins MD Upcoming Appointments Future Appointments In 2 weeks [facility] 2ND VACCINE CL[facility] Family [facility] [place] In 2 months [facility] DIRECTOR MARKETING - Recent and Past Visits Recent Visits Date Type Provider Dept 06/07/20 Office Visit Keith Craft MD [facility] 04/25/20 Office Visit Keith Craft, [facility] 02/02/20 Office Visit Keith Craft MD [facility] 11/02/19 Office Visit Keith Craft MD [facility] 07/27/19 Office Visit Keith Craft MD [facility] 06/10/19 Office Visit Brie Denis Marie, [facility] 04/20/19 Office Visit Keith Craft, [facility] Showing recent visits within past 460 days with a meds authorizing provider and meeting all other requirements Future Appointments Date Type Provider Dept 10/04/20 Appointment Keith Craft MD [facility] Showing future appointments within next 90 days with a meds authorizing provider and meeting all other requirements FRUIT documented in this encounter Plan of Treatment Upcoming Encounters Date Type Department Care Team (Late st Contact Info) Description 04/26/2025 1:30 PM COOK FRUIT Office Visit [facility] Medical [facility] - Pulmonology & Sleep Medicine - [place] #2 [facility] [place] [address] Werner Swift MD #2 [place] [address] 05/31/2025 1:20 PM COOK FRUIT Office Visit [facility] - [place] #2 [facility] [address] Liz Capellan, DO [address] [place] [address] 06/02/2025 1:30 PM COOK FRUIT Office Visit [facility] - Endocrinology - [place] [address] [place] [address] Yasmin Restrepo MD #[address] [facility] [address] [place] [address] documented as of this encounter Visit [...] - 19 07/23/2021 07/23/2021 07/24/2021 6:31 AM COOK FRUIT COVID - 19 10/19/2021 10/19/2021 10/20/2021 7:45 AM CDT Respiratory Rule Out - RPA 10/19/2021 10/19/2021 0 10/20/2021 2:10 PM CDT Stenotrophomonas maltophilia Comment:Must have a follow up respiratory sample to remove isolation/infection flag. 10/20/2021 10/20/2021 COVID - 19 04/20/2022 04/20/2022 04/30/2022 12:1 8 AM COOK FRUIT COVID - 19 07/18/2022 07/18/2022 07/28/2022 12:1 6 AM COOK FRUIT COVID - 19 08/21/2022 08/21/2022 08/22/2022 8:31 AM CDT Respiratory Rule Out - RPA 08/21/2022 08/21/2022 0 08/22/2022 3:21 PM CDT COVID - 19 04/18/2023 04/18/2023 04/28/2023 12:1 6 AM COOK FRUIT COVID - 19 07/13/2023 07/13/2023 07/23/2023 12:1 6 AM COOK FRUIT Respiratory Rule Out - RPA 03/17/2024 03/17/2024 1 3:36 PM CDT COVID - 19 04/27/2024 04/27/2024 04/27/2024 2:19 PM COOK FRUIT Respiratory Rule-Out 07/24/2024 07/24/2024 025 2:29 PM COOK FRUIT COVID - 19 07/24/2024 07/24/2024 07/24/2024 2:29 PM COOK FRUIT COVID - 19 08/22/2024 08/22/2024 08/22/2024 11:4 6 PM CDT COVID - 19 09/03/2024 09/03/2024 09/03/2024 12:4 7 PM CDT Assessment Noted Time PHQ-9 Depression Total Score: 2 06/07/19 2:34 PM COOK FRUIT documented as of this encounter Care Teams Inspector Packer Glass Container Relationship Specialty Start Date End Date Keith Craft MD PCP - General Family Medicine 01/14/19 12/26/23 Liz Capellan DO [address] [id number] PCP - General Family Medicine 12/27/23 Quang Locke DO Gastroenterology 01/18/16 Bri Rollins, [place] Clam Dredge Boat Captain 03/07/21 05/22/23 [place] [address] [address] 05/25/21 Bri Rollins RN [place] Nurse Clam Dredge Boat Captain 03/07/21 05/23/23 Werner Swift MD #2 [place] [address] Consulting Physician Pulmonary Disease 01/30/22 Yasmin Restrepo MD #[address] [address] Consulting Physician Endocrinology 07/20/24 Jose Do MD #[address] [address] Consulting Physician Colon and Rectal Surgery 10/12/24 documented as of this encounter
--- OUTSIDE RECORDS SUMMARY | 2025-03-23 14:59 | XMS_ITS | Encounter Summary ---
Author Organization [facility] Address [address] [place] [address] Phone Care Team Providers Care Superior Court Judge Name Role Phone Quang Locke Unavailable [phone] Keith Craft MD Primary Care Provider [phone] Silvio Schulte MD Unavailable [phone] Werner Swift MD Unavailable Liz Capellan DO Primary Care Provider [phone] Yasmin Restrepo MD Unavailable Jose Do MD Unavailable Reason for Visit * Reason Comments Medication Refill Encounter Details Date Type Department Care Team (Late st Contact Info) Description 07/17/2023 Refill [facility] [address] [place] [address] Keith Craft MD #1 [place] [address] Medication Refill Social History Tobacco Use Types Packs/Day Years Used Date Smoking Tobacco: Former Cigarettes 2 50 1 - 03/16/2018 Smokeless Tobacco: Never Comments:Still uses nictoine patches and gum Alcohol Use Standard Drinks/Week Comments No 0 (1 standard drink = 0.6 oz pur e alcohol) [facility] Utilities Answer Date Recorded In the [...] Total Score - Questions 1-9 0 08/2021 [facility] of Occupat ional Health - Occupational [...] Kelin Nance RN - 07/17/2023 1:06 PM TOBACCO DRYING MACHINE OPERATOR No protocol information Per nursing clinical judgement, provider to review and approve the medication(s) order(s) if appropriate. Requested Prescriptions Pending Prescriptions Disp Refills Basaglar KwikPen 100 UNIT/ML Solution Pen-injector [Pharmacy Med Name: BASAGLAR KWIKPEN 100UNIT SOLN PEN-INJ] 45 mL 4 Sig: INJECT 15 UNITS SUBCUTANEOUS DAILY There is no refill protocol information for this order CCO DRYING MACHINE OPERATOR documented in this encounter Plan of Treatment Upcoming Encounters Date Type Department Care Team (Late st Contact Info) Description 04/26/2025 1:30 PM TOBACCO DRYING MACHINE OPERATOR Office Visit [facility] Medical [facility] - Pulmonology & Sleep Medicine - [place] #2 [place] [address] Werner Swift MD #2 [place] [address] 05/31/2025 1:20 PM TOBACCO DRYING MACHINE OPERATOR Office Visit [facility] Medical [facility] - Family Medicine - [place] #2 [facility] [place] [address] Liz Capellan, DO [address] [address] 06/02/2025 1:30 PM TOBACCO DRYING MACHINE OPERATOR Office Visit [facility] - Endocrinology - [place] #2 [place] [address] Yasmin Restrepo MD #[address] [place] [address] documented as of this encounter Goals Goal [...] Zones/Action plan education. I will notify my Tub Attendant if my symptoms fall in the [...] 19 07/13/2023 07/13/2023 07/23/2023 12:1 6 AM TOBACCO DRYING MACHINE OPERATOR Respiratory Rule Out - RPA 03/17/2024 03/17/2024 1 3:36 PM CDT COVID - 19 04/27/2024 04/27/2024 04/27/2024 2:19 PM TOBACCO DRYING MACHINE OPERATOR Respiratory Rule-Out 07/24/2024 07/24/2024 025 2:29 PM TOBACCO DRYING MACHINE OPERATOR COVID - 19 07/24/2024 07/24/2024 07/24/2024 2:29 PM TOBACCO DRYING MACHINE OPERATOR COVID - 19 08/22/2024 08/22/2024 08/22/2024 11:4 6 PM CDT COVID - 19 09/03/2024 09/03/2024 09/03/2024 12:4 7 PM CDT Assessment Noted Time PHQ-9 Depression Total Score: 1 03/07/20 21 10:29 AM CDT documented as of this encounter Care Teams Superior Court Judge Relationship Specialty Start Date End Date Keith Craft MD PCP - General Family Medicine 01/14/19 12/26/23 Liz Capellan DO 2 [facility] [address] [place], [place] [phone] PCP - General Family Medicine 12/27/23 Quang Locke DO Gastroenterology 01/18/16 [place] [address] [address] 05/25/21 Werner Swift MD #2 [place] [address] Consulting Physician Pulmonary Disease 01/30/22 Yasmin Restrepo MD #2 [facility] [address] [place] [address] Consulting Physician Endocrinology 07/20/24 Jose Do MD #[address] [address] Consulting Physician Colon and Rectal Surgery 10/12/24 documented as of this encounter
--- OUTSIDE RECORDS SUMMARY | 2025-03-23 14:59 | XMS_ITS | Encounter Summary ---
Author Organization [facility] Address [address] [place] [address] Phone Care Team Providers Care Trackless Trolley Driver Name Role Phone Quang Locke Oswaldo PRESLEY Unavailable [phone] Silvio Schulte MD Unavailable [phone] Werner Swift MD Unavailable Liz Capellan DO Primary Care Provider Yasmin Restrepo MD Unavailable Jose Do MD Unavailable Reason for Visit * Reason Onset Date Comments Medication Management 05/01/2024 Encounter Details Date Type Department Care Team (Late st Contact Info) Description 05/01/2024 Telephone [facility] [address] [place], [place] [phone] Liz Capellan DO [address] [facility] [address] [place] [address] Medication Management Social History Tobacco Use Types [...] declined 04/27/2024 How often do you attend caodaism or faith serv ices? Patient declined 04/27/2024 Do you [...] Total Score - Questions 1-9 4 10/25 [facility] - Occupational Stress Questionnaire [...] No 07/13/2023 Housing Stability Vital Sign Answer Ricahr e Recorded In the last 12 months, [...] or living in a fpc (including now)? Patient declined 04/27/2024 Education Answer [...] Grace Friedman, PT - 05/01/2024 9:47 PM PRINCIPAL HARDWARE ARCHITECT S - Medication discrepancies B - Current [facility] patient resumption of care after a hospitalization completed on 05-01-24for SN and PT. A - Patient reports: Requests to add med (med/dose/route/frequency PRN reason) [id number]/phenyleephrine hcl 10mg, take 1 every 4 hours. R - Please review the above med discrepancies and update the medication list in EPIC to reflect theany changes. Notify Home Health when complete to facilitate patient education. CIPAL HARDWARE ARCHITECT documented in this encounter Plan of Treatment Upcoming Encounters Date Type Department Care Team (Late st Contact Info) Description 04/26/2025 1:30 PM PRINCIPAL HARDWARE ARCHITECT Office Visit [facility] - Pulmonology & Sleep Medicine [facility] #2 [place] [address] Werner Swift MD #2 [place] [address] 05/31/2025 1:20 PM PRINCIPAL HARDWARE ARCHITECT Office Visit [facility] Medical [facility] - Family Medicine - [place] #2 [place] [address] Liz Capellan, DO 2 [facility] [address] [place] [address] 06/02/2025 1:30 PM PRINCIPAL HARDWARE ARCHITECT Office Visit [facility] Medical [facility] - Endocrinology - [place] #2 [place] [address] Yasmin Restrepo MD #2 [facility] [address] [place] [address] documented as of this encounter Goals Goal [...] Zones/Action plan education. I will notify my Assembler Camper if my symptoms fall in the y [...] Respiratory Rule-Out 07/24/2024 07/24/2024 025 2:29 PM PRINCIPAL HARDWARE ARCHITECT COVID - 19 07/24/2024 07/24/2024 07/24/2024 2:29 PM PRINCIPAL HARDWARE ARCHITECT COVID - 19 08/22/2024 08/22/2024 08/22/2024 11:4 6 PM CDT COVID - 19 09/03/2024 09/03/2024 09/03/2024 12:4 7 PM CDT Assessment Noted Time PHQ-9 Depression Total Score: 4 11/08/19 24 9:33 AM CDT documented as of this encounter Care Teams Trackless Trolley Driver Relationship Specialty Start Date End Date Liz Capellan DO [address] [address] PCP - General Family Medicine 12/27/23 Quang Locke DO Gastroenterology 01/18/16 [place] [address] [address] 05/25/21 Werner Swift MD #2 [place] [address] Consulting Physician Pulmonary Disease 01/30/22 Yasmin Restrepo MD #[address] [address] Consulting Physician Endocrinology 07/20/24 Jose Do MD #[address] [address] Consulting Physician Colon and Rectal Surgery 10/12/24 documented as of this encounter
--- OUTSIDE RECORDS SUMMARY | 2025-03-23 14:59 | XMS_ITS | Encounter Summary ---
Author Organization [facility] Address [address] [place] [address] Phone Care Team Providers Care Book Sorter Name Role Phone SloanQuang walker Oswaldo PRESLEY Unavailable [phone] Silvio Schulte MD Unavailable [phone] Werner Swift MD Unavailable Liz Capellan DO Primary Care Provider Yasmin Restrepo MD Unavailable Jose Do MD Unavailable Encounter Details Date Type Department Care Team (Late st Contact Info) Description 04/30/2024 Home Health Resumpti on of Care Planning [facility] [address] [place], [place] [id number] Social History Tobacco Use Types Packs/Day Years Used Date Smoking Tobacco: Former Cigarettes 2 50 1 - 03/16/2018 Smokeless Tobacco: Never Comments:Still uses nictoine patches and gum Alcohol Use Standard Drinks/Week Comments No 0 (1 standard drink = 0.6 oz pur e alcohol) [facility] Utilities Answer Date Recorded In the past 12 months has [employer], gas, oil, or water company threatened to [...] declined 04/27/2024 How often do you attend jewish or oriental orthodox serv ices? Patient declined 04/27/2024 Do you belong to any clubs o r organizations such as jewish groups, unions, fraternal or athletic groups, or [...] Total Score - Questions 1-9 4 10/[address] [facility] - Occupational Stress Questionnaire Answer Date Recorded [...] in the past 12 m [facility], were you homeless or living in a alf (including now)? Patient declined 04/27/2024 Education Answer [...] Contact Info) Description 04/26/2025 1:30 PM MANAGER PARK Office Visit [facility] - Pulmonology & [facility] [place] [address] [place] [address] Werner Swift MD [address] [place] [address] 05/31/2025 1:20 PM MANAGER PARK Office Visit [facility] - Family Medicine - [place] [address] [place] [address] Liz Capellan, DO [address] [facility]. [address] [place] [address] 06/02/2025 1:30 PM MANAGER PARK Office Visit [facility] - Endocrinology - [place] [address] [place] [phone] Yasmin Restrepo MD #[address] [address] documented as of this encounter Goals Goal [...] Zones/Action plan education. I will notify my Purchasing Specialist if my symptoms fall in the [...] Rule-Out 07/24/2024 07/24/2024 025 2:29 PM MANAGER PARK COVID - 19 07/24/2024 07/24/2024 07/24/2024 2:29 PM MANAGER PARK COVID - 19 08/22/2024 08/22/2024 08/22/2024 11:4 6 PM CDT COVID - 19 09/03/2024 09/03/2024 09/03/2024 12:4 7 PM CDT Assessment Noted Time PHQ-9 Depression Total Score: 4 11/08/19 24 9:33 AM CDT documented as of this encounter Care Teams Book Sorter Relationship Specialty Start Date End Date Liz Cpaellan DO [address] [id number] PCP - General Family Medicine 12/27/23 Quang Locke DO Gastroenterology 01/18/16 [place] [address] [address] 05/25/21 Werner Swift MD #2 [place] [address] Consulting Physician Pulmonary Disease 01/30/22 Yasmin Restrepo MD #[address] [address] Consulting Physician Endocrinology 07/20/24 Jose Do MD #[address] [address] Consulting Physician Colon and Rectal Surgery 10/12/24 documented as of this encounter
--- OUTSIDE RECORDS SUMMARY | 2025-03-23 14:59 | XMS_ITS | Encounter Summary ---
Author Organization [facility] Address [address] [place] [address] Phone Care Team Providers Care Churn Drill Operator Name Role Phone Quang Locke DO Unavailable [phone] Keith Craft MD Primary Care Provider Silvio Schulte MD Unavailable [phone] Werner Swift MD Unavailable Liz Capellan DO Primary Care Provider [phone] Yasmin Restrepo MD Unavailable Jose Do MD Unavailable Reason for Visit * Reason Comments Medication Refill Encounter Details Date Type Department Care Team (Late st Contact Info) Description 09/04/2023 [facility]ill [facility] [address] [place] [address] Werner Swift MD [address] [place] [address] Medication Refill Social History Tobacco Use Types Packs/Day Years Used Date Smoking Tobacco: Former Cigarettes 2 50 1 - 03/16/2018 Smokeless Tobacco: Never Comments:Still uses nictoine patches and gum Alcohol Use Standard Drinks/Week Comments No 0 (1 standard drink = 0.6 oz pur e alcohol) [facility] Utilities Answer Date Recorded In [...] often do you attend chur ch or restorationism services? Never 07/13/2023 Do you belong to any clubs o r organizations such as restoration groups, unions, fraternal or athletic groups, or [...] Total Score - Questions 1-9 0 08/2021 [facility] [place] of Occupat ional Health - Occupational Stress [...] Swift MD [facility] 08/15/23 Office Visit Keith Craft MD [facility] 05/21/23 Office Visit Werner Swift MD [facility] 05/02/23 Office Visit Keith Craft MD [facility] [place] 04/12/23 Office Visit Keith Craft MD [facility] [place] 01/29/23 Office Visit Werner Swift MD [facility] 12/10/22 Office Visit Keith Craft MD [facility] [place] 10/25/22 Office Visit Werner Swift MD [facility] [place] 09/10/22 Office Visit [facility] Show[facility] recent visits within past 365 days and meeting all other requirements Future Appointments Date Type Provider Dept 11/21/23 Appointment Werner Swift MD [facility] Showing future appointments within next 90 days and meeting all other requirements documented in this encounter Plan of Treatment Upcoming Encounters Date Type Department Care Team (Late st Contact Info) Description 04/26/2025 1:30 PM PERIOPERATIVE ASSISTANT [facility] - [place] [address] [place] [address] Werner Swift MD #2 [facility] [place] [address] 05/31/2025 1:20 PM PERIOPERATIVE ASSISTANT Office Visit [facility] - Family Medicine - [place] [address] [place] [address] Liz Capellan, DO 2 [facility] [address] [place] [address] 06/02/2025 1:30 PM PERIOPERATIVE ASSISTANT Office Visit [facility] - Endocrinology - [place] [address] [facility] [place] [address] Yasmin Restrepo MD #2 [facility] [address] [place] [address] documented as of this encounter [...] plan education. I will notify my Photo Manager if my symptoms fall in the [...] - 19 04/27/2024 04/27/2024 04/27/2024 2:19 PM PERIOPERATIVE ASSISTANT Respiratory Rule-Out 07/24/2024 07/24/2024 025 2:29 PM PERIOPERATIVE ASSISTANT COVID - 19 07/24/2024 07/24/2024 07/24/2024 2:29 PM PERIOPERATIVE ASSISTANT COVID - 19 08/22/2024 08/22/2024 08/22/2024 11:4 6 PM CDT COVID - 19 09/03/2024 09/03/2024 09/03/2024 12:4 7 PM CDT Assessment Noted Time PHQ-9 Depression Total Score: 1 03/07/20 21 10:29 AM CDT documented as of this encounter Care Teams Churn Drill Operator Relationship Specialty Start Date End Date Keith Craft MD PCP - General Family Medicine 01/14/19 12/26/23 Liz Capellan DO [address] [address] PCP - General Family Medicine 12/27/23 Quang Locke DO Gastroenterology 01/18/16 [place] [address] [address] 05/25/21 Werner Swift MD #2 [place] [address] Consulting Physician Pulmonary Disease 01/30/22 Yasmin Restrepo MD #[address] [address] Consulting Physician Endocrinology 07/20/24 Jose Do MD #[address] [address] Consulting Physician Colon and Rectal Surgery 10/12/24 documented as of this encounter
--- OUTSIDE RECORDS SUMMARY | 2025-03-23 14:59 | XMS_ITS | Encounter Summary ---
Author Organization [facility] Address [address] [place] [address] Phone Care Team Providers Care Soil Fertility Extension Specialist Name Role Phone SloanQuang walker Oswaldo PRESLEY Unavailable [phone] Silvio Schulte MD Unavailable [phone] Werner Swift MD Unavailable Liz Capellan DO Primary Care Provider Yasmin Restrepo MD Unavailable Jose Do MD Unavailable Reason for Visit * Reason Onset Date Comments Advice Only 07/09/2024 Cough 07/09/2024 Encounter Details Date Type Department Care Team (Late st Contact Info) Description 07/09/2024 Nurse Triage [facility] [address] [place] [address] Liz Capellan DO [address] [address] Advice Only; Cough Social History Tobacco Use [...] declined 04/27/2024 How often do you attend holiness or evangelical serv ices? Patient declined 04/27/2024 Do you [...] Total Score - Questions 1-9 0 06/27 [facility] [place] of Occupat ional Health - Occupational Stress [...] any time in the past 12 m [facility], were you homeless or living in a prison (including now)? Patient declined 04/27/2024 Education Answer [...] Adrianna Solitario RN - 07/09/2024 9:23 AM ELECTRICIAN APPRENTICE POWERHOUSE SITUATION: Cough BACKGROUND: Patient contacting PCP office. [...] needing to talk to patient please call [phone] Encounter routed to provider high priority to notify. Please send MyChart message with provider advice on recommendations. Discussed utilizing [employer] to: discuss if they would prefer a [employer] message or phone call response - See [...] Disposition Wheezing is present Protocols used: Cough-A-OH TRICIAN APPRENTICE POWERHOUSE * Telephone Encounter - Becca Stoll - 07/09/2024 9:22 AM CST Symptom: Cough Outcome: Transfer to certified vehicle fire investigator queue Reason: Wheezing (high-pitched whistling sound) The caller accepted this outcome. Caller Denied: * Struggling for each breath (severe trouble breathing) * Choked on something TRICIAN APPRENTICE POWERHOUSE documented in this encounter Plan of Treatment Upcoming Encounters Date Type Department Care Team (Late st Contact Info) Description 04/26/2025 1:30 PM ELECTRICIAN APPRENTICE POWERHOUSE Office Visit [facility] - Pulmonology & [facility] [address]2 [place] [address] Werner Swift MD [address] [place] [address] 05/31/2025 1:20 PM ELECTRICIAN APPRENTICE POWERHOUSE Office Visit [facility] - Family Medicine - [place] #[address] [facility] [place] [address] Liz Capellan, DO 2 [facility] [address] [place] [address] 06/02/2025 1:30 PM ELECTRICIAN APPRENTICE POWERHOUSE Office Visit [facility] - Endocrinology - [place] [address] [place] [address] Yasmin Restrepo MD #2 [facility] [address] [place] [address] documented as of this encounter Goals Goal [...] Zones/Action plan education. I will notify my Corrections Sergeant if my symptoms fall in the y [...] Respiratory Rule-Out 07/24/2024 07/24/2024 025 2:29 PM ELECTRICIAN APPRENTICE POWERHOUSE COVID - 19 07/24/2024 07/24/2024 07/24/2024 2:29 PM ELECTRICIAN APPRENTICE POWERHOUSE COVID - 19 08/22/2024 08/22/2024 08/22/2024 11:4 6 PM CDT COVID - 19 09/03/2024 09/03/2024 09/03/2024 12:4 7 PM CDT Assessment Noted Time PHQ-9 Depression Total Score: 4 11/08/19 24 9:33 AM CDT documented as of this encounter Care Teams Soil Fertility Extension Specialist Relationship Specialty Start Date End Date Liz Capellan DO 2 [facility] [address] [address] PCP - General Family Medicine 12/27/23 Quang Locke DO Gastroenterology 01/18/16 [place] [address] [address] 05/25/21 Werner Swift MD [address] [place] [address] Consulting Physician Pulmonary Disease 01/30/22 Yasmin Restrepo MD #[address] [address] Consulting Physician Endocrinology 07/20/24 Jose Do MD #[address] [address] Consulting Physician Colon and Rectal Surgery 10/12/24 documented as of this encounter
--- OUTSIDE RECORDS SUMMARY | 2025-03-23 14:59 | XMS_ITS | Encounter Summary ---
Author Organization [facility] Address [address] [place] [address] Phone Care Team Providers Care Baked Goods Stock Clerk Name Role Phone Quang Locke Unavailable [phone] Keith Craft MD Primary Care Provider Silvio Schulte MD Unavailable [phone] Werner Swift MD Unavailable Liz Capellan DO Primary Care Provider [phone] Yasmin Restrepo MD Unavailable Jose Do MD Unavailable Reason for Visit * Reason Comments Medication Refill Encounter Details Date Type Department Care Team (Late st Contact Info) Description 09/04/2023 [facility]ill [facility] #[address] [place] [address] Keith Craft MD [address] [place] [address] Medication Refill Social History Tobacco Use Types Packs/Day Years Used Date Smoking Tobacco: Former Cigarettes 2 50 1 - 03/16/2018 Smokeless Tobacco: Never Comments:Still uses nictoine patches and gum Alcohol Use Standard Drinks/Week Comments No 0 (1 standard drink = 0.6 oz pur e alcohol) [facility] Utilities Answer Date Recorded In the past [...] often do you attend chur ch or cheondoism services? Never 07/13/2023 Do you belong to [...] Total Score - Questions 1-9 0 08/2021 [facility] [place] of Occupat ional Health - Occupational Stress [...] 08/15/2023 30 120 Tablet Keith Craft MD [facility]... documented in this encounter Plan of Treatment Upcoming Encounters Date Type Department Care Team (Late st Contact Info) Description 04/26/2025 1:30 PM REVERSE LOGISTICS ANALYST Office Visit [facility] - Pulmonology & Sleep Medicine - [place] [address]2 [place] [address] Werner Swift MD #2 [facility] [place] [address] 05/31/2025 1:20 PM REVERSE LOGISTICS ANALYST Office Visit [facility] - Family Medicine - [place] #2 [facility] [place] [address] Liz Capellan, DO 2 [facility]. [address] [place] [address] 06/02/2025 1:30 PM REVERSE LOGISTICS ANALYST Office Visit [facility] - Endocrinology - [place] [address]2 [place] [address] Yasmin Restrepo MD #[address] [place] [address] documented as of this encounter Goals Goal [...] plan education. I will notify my Sales Floor Manager if my symptoms fall in the [...] - 19 04/27/2024 04/27/2024 04/27/2024 2:19 PM REVERSE LOGISTICS ANALYST Respiratory Rule-Out 07/24/2024 07/24/2024 025 2:29 PM REVERSE LOGISTICS ANALYST COVID - 19 07/24/2024 07/24/2024 07/24/2024 2:29 PM REVERSE LOGISTICS ANALYST COVID - 19 08/22/2024 08/22/2024 08/22/2024 11:4 6 PM CDT COVID - 19 09/03/2024 09/03/2024 09/03/2024 12:4 7 PM CDT Assessment Noted Time PHQ-9 Depression Total Score: 1 03/07/20 21 10:29 AM CDT documented as of this encounter Care Teams Baked Goods Stock Clerk Relationship Specialty Start Date End Date Keith Craft MD PCP - General Family Medicine 01/14/19 12/26/23 Liz Capellan DO 2 [facility] [place] [address] PCP - General Family Medicine 12/27/23 Quang Locke DO Gastroenterology 01/18/16 [place] [address] [address] 05/25/21 Werner Swift MD #2 [place] [address] Consulting Physician Pulmonary Disease 01/30/22 Yasmin Restrepo MD #[address] [address] Consulting Physician Endocrinology 07/20/24 Jose Do MD #[address] [phone] Consulting Physician Colon and Rectal Surgery 10/12/24 documented as of this encounter
--- OUTSIDE RECORDS SUMMARY | 2025-03-23 14:59 | XMS_ITS | Encounter Summary ---
Author Organization [facility] Address [address] [place] [address] Phone Care Team Providers Care Central Aisle Cashier Name Role Phone Quang Locke Unavailable [phone] Keith Craft MD Primary Care Provider [phone] Silvio Schulte MD Unavailable [phone] Werner Swift MD Unavailable Liz Capellan DO Primary Care Provider [phone] Yasmin Restrepo MD Unavailable Jose Do MD Unavailable Reason for Visit * Reason Comments Medication Refill Encounter Details Date Type Department Care Team (Late st Contact Info) Description 08/07/2023 Refill [facility] [address] [place] [address] Keith Craft MD #1 [place] [address] Medication Refill Social History Tobacco Use Types [...] Questions 1-9 0 08/2021 [facility] [place] of Occupat ional Health - Occupational Stress [...] [place] 09/10/22 Office Visit Keith Craft MD [facility] [place] Showing recent visits within past 365 days and meeting all other requirements Future Appointments Date Type Provider Dept 08/15/23 Appointment Keith Craft MD [facility] Showing future appointments within next 90 days and meeting all other requirements documented in this encounter Plan of Treatment Upcoming Encounters Date Type Department Care Team (Late st Contact Info) Description 04/26/2025 1:30 PM FUEL ISLAND ATTENDANT Office Visit [facility] - Pulmonology & Sleep Medicine - [place] [address] [place] [address] Werner Swift MD #2 [place] [address] 05/31/2025 1:20 PM FUEL ISLAND ATTENDANT [facility] Visit [facility] - Family Medicine - [place] #[address] [place] [address] Liz Capellan, DO [address] [address] 06/02/2025 1:30 PM FUEL ISLAND ATTENDANT Office Visit [facility] - Endocrinology - [place] [address] [place] [address] Ysamin Restrepo MD #[address] [phone] documented as of this encounter Goals Goal [...] Zones/Action plan education. I will notify my Church Musician if my symptoms fall in the y [...] 19 04/27/2024 04/27/2024 04/27/2024 2:19 PM FUEL ISLAND ATTENDANT Respiratory Rule-Out 07/24/2024 07/24/2024 025 2:29 PM FUEL ISLAND ATTENDANT COVID - 19 07/24/2024 07/24/2024 07/24/2024 2:29 PM FUEL ISLAND ATTENDANT COVID - 19 08/22/2024 08/22/2024 08/22/2024 11:4 6 PM CDT COVID - 19 09/03/2024 09/03/2024 09/03/2024 12:4 7 PM CDT Assessment Noted Time PHQ-9 Depression Total Score: 1 03/07/20 21 10:29 AM CDT documented as of this encounter Care Teams Central Aisle Cashier Relationship Specialty Start Date End Date Keith Craft MD PCP - General Family Medicine 01/14/19 12/26/23 Liz Capellan DO 2 [facility] [address] [place], [place] [phone] PCP - General Family Medicine 12/27/23 Quang Locke DO Gastroenterology 01/18/16 [place] [address] [address] 05/25/21 Werner Swift MD #2 [place] [address] Consulting Physician Pulmonary Disease 01/30/22 Yasmin Restrepo MD #2 [facility] [address] [place] [address] Consulting Physician Endocrinology 07/20/24 Jose Do MD #[address] [address] Consulting Physician Colon and Rectal Surgery 10/12/24 documented as of this encounter
--- OUTSIDE RECORDS SUMMARY | 2025-03-23 14:59 | XMS_ITS | Encounter Summary ---
Author Organization [facility] Address [address] [place] [address] Phone Care Team Providers Care Asbestos Textile Supervisor Name Role Phone SloanQuang walker Oswaldo PRESLEY Unavailable [phone] Silvio Schulte MD Unavailable [phone] Werner Swift MD Unavailable Liz Capellan DO Primary Care Provider Yasmin Restrepo MD Unavailable Jose Do MD Unavailable Encounter Details Date Type Department Care Team (Late st Contact Info) Description 05/04/2024 Lab Requisition [facility] [address] [place] [address] Liz Capellan DO [address] [id number] Pneumonia, unspecified organism Social History Tobacco Use [...] declined 04/27/2024 How often do you attend baptism or jain serv ices? Patient declined 04/27/2024 Do you [...] Total Score - Questions 1-9 4 10/25 [facility] - Occupational Stress Questionnaire [...] Contact Info) Description 04/26/2025 1:30 PM SUPERVISOR [employer]OTT[employer]ACH[employer] Office Visit [facility] - Pulmonology & Sleep Medicine - [place] [address] [facility] [place] [address] Werner Swift MD [address] [place] [address] 05/31/2025 1:20 PM SUPER[employer] Office Visit [facility] - Family Medicine - [place] [address] [facility] [place] [address] Liz Capellan, DO 2 [facility] [address] [place] [address] 06/02/2025 1:30 PM [employer] Office Visit [facility] - Endocrinology - [place] [address] [place] [phone] Yasmin Restrepo MD #[address] [phone] documented as of this encounter Goals Goal [...] Zones/Action plan education. I will notify my Radio Division Captain if my symptoms fall in the y ellow zone . I will consider receiving an influenza and pneumonia vaccination, if applicable. -I will call the office if I experience any symptoms listed above to discuss at home management options. documented as of this encounter Procedures Procedure Name Priority Date/Time Associated Diagnosis Comments CBC WITH AUTO DIFFERENTIAL Routine 05/04/2024 9:30 AM [employer]PER[employer] Pneumonia, unspecified organism THYROXINE (T4) TOTAL Routine 05/04/2024 9:30 AM [employer] Pneumonia, unspecified organism COMPLETE BLOOD COUNT (CBC) WITH DIFF Routine 05/04/2024 9:30 AM [employer] Pneumonia, unspecified organism BASIC METABOLIC PANEL W/ CALCIUM TOTAL Routine 05/04/2024 9:30 AM [employer] Pneumonia, unspecified organism documented in this encounter Results * (ABNORMAL) CBC WITH AUTO DIFFERENTIAL (05/04/2024 9:30 AM SUPERVIS[employer]) WBC 6.71 4.00 - 12.00 10(3)/mcL 05/04/2024 11:14 AM [employer] [facility] RBC 3.50(L) 3.80 - 5.30 10(6)/mcL 05/04/2024 11:14 AM [employer] [facility] HEMOGLOBIN (HGB) 12.5 12.0 - 15.8 g/dL 05/04/2024 11:14 AM [employer] [facility] HEMATOCRIT (HCT) 37.2 36.0 - 47.0 % 05/04/2024 11:14 AM [employer] [facility] MCV 106.3(H) 82.0 - 96.0 fL 05/04/2024 11:14 AM [employer] [facility] MCH 35.7(H) 26.0 - 34.0 pg 05/04/2024 11:14 AM [employer] [facility] MCHC 33.6 31.0 - 36.0 g/dL 05/04/2024 11:14 AM [facility] PLATELET COUNT 358 140 - 440 10(3)/[facility] 05/04/2024 11:14 AM [facility] RDW 12.0 11.8 - 15.5 % 05/04/2024 11:14 AM [facility] MPV 9.5(L) 9.7 - 12.4 fL 05/04/2024 11:14 AM [facility] NEUTROPHILS 59.1 47.0 - 73.0 % 05/04/2024 11:14 AM [facility] LYMPHOCYTES 31.0 18.0 - 42.0 % 05/04/2024 11:14 AM [facility] MONOCYTES 9.5 4.0 - 12.0 % 05/04/2024 11:14 AM [facility] EOSINOPHILS 0.1 0.0 - 5.0 % 05/04/2024 11:14 AM [facility] BASOPHILS 0.3 0.0 - 1.0 % 05/04/2024 11:14 AM [facility] ABSOLUTE NEUTROPHILS 3.96 1.60 - 7.70 10(3)/mcL 05/04/2024 11:14 AM [facility] ABSOLUTE LYMPHOCYTES 2.08 1.30 - 3.20 10(3)/mcL 05/04/2024 11:14 AM [facility] ABSOLUTE MONOCYTES 0.64 0.20 - 1.00 10(3)/mcL 05/04/2024 11:14 AM [facility] ABSOLUTE EOSINOPHIL 0.01 0.00 - 0.40 10(3)/mcL 05/04/2024 11:14 AM [facility] ABSOLUTE BASOPHILS 0.02 0.00 - 0.10 10(3)/mcL 05/04/2024 11:14 AM [facility] NRBC PER 100 WBC 0 05/04/20 11:14 AM [facility] RESULTS ARE CONSISTENT WITH PERIPHERAL SMEAR REVIEW Yes 05/04/2024 11:14 AM [employer] [facility] RBC MORPHOLOGY CONSISTENT WITH INDICES Yes 05/04/2024 11:14 AM [employer] [facility] Blood No Phlebotomy Charged / Unknown 05/04/2024 9:30 AM [employer] 05/04/2024 10:31 AM [employer] us Liz Capellan DO HEMATOLOGY ORDERABLES Final R esult Performing Organization Address City/[facility] Co de Phone Number [facility] [address] [place] [address] * THYROXINE (T4) TOTAL (05/04/2024 9:30 AM SUPERVIS[employer]) T4 8.1 5.0 - 13.0 mcg/dL 05/04/2024 11:47 AM [employer] [facility] Blood No Phlebotomy Charged / Unknown 05/04/2024 9:30 AM [employer] 05/04/2024 10:31 AM [employer] us Liz Capellan DO CHEMISTRY ORDERABLES Final Re sult Performing Organization Address [facility] Co de Phone Number [facility] [address] [place] [address] * (ABNORMAL) BASIC METABOLIC PANEL W/ CALCIUM TOTAL (05/04/2024 9:30 AM SUPER[employer]) SODIUM 132(L) 136 - 145 mmol/L 05/04/2024 11:27 AM [employer] [facility] POTASSIUM 4.2 3.5 - 5.1 mmol/L 05/04/2024 11:27 AM [employer] [facility] CHLORIDE 99 98 - 107 mmol/L 05/04/2024 11:27 AM [employer] [facility] CO2, VENOUS 27 22 - 30 mmol/L 05/04/2024 11:27 AM [employer] [facility] ANION GAP 10.2 <18.0 mmol/L 05/04/2024 11:27 AM [employer] [facility] GLUCOSE 80 70 - 99 mg/dL 05/04/2024 11:27 AM [facility] BUN 31(H) 10 - 20 mg/dL 05/04/2024 11:27 AM [facility] CREATININE, BLOOD 1.04(H) 0.60 - 1.00 mg/dL 05/04/2024 11:27 AM [facility] BUN/CREATININE RATIO 30(H) 12 - 20 ratio 05/04/2024 11:27 AM [facility] CALCIUM 9.0 8.7 - 10.5 mg/dL 05/04/2024 11:27 AM [facility] GFR, ESTIMATED 56(L) >=60 05/04/2024 11:27 AM [facility] Comment: Creatinine Clearance is the preferred criteria for selecting drug dose adjustments in renally impaired patients. The GFR is provided as additional pertinent clinical information. GFR is reported in mL/min/1.73 sq m. Calculation based on the Chronic Kidney Disease Epidemiology Collaboration (CKD- EPI) equation refit without adjustment for race. GFR, EST. >60 >=60 024 11:27 AM [facility] GFR, EST. NONAFRICAN 52(L) >=60 05/04/2024 11:27 AM [facility] Blood No Phlebotomy Charged / Unknown 05/04/2024 9:30 AM [employer] 05/04/2024 10:31 AM [employer] us Liz Capellan DO CHEMISTRY ORDERABLES Final Re sult [facility] [address] [place] [address] documented in this encounter Visit Diagnoses Diagnosis Pneumonia, unspecified organism documented in this encounter Additional Health Concerns Infection Onset Date Last Indicated Resolved Time Stenotrophomonas maltophilia Comment:Must have a follow up respiratory sample to remove isolation/infection flag. 10/20/2021 10/20/2021 Respiratory Rule-Out 07/24/2024 07/24/2024 025 2:29 PM [employer]PER[employer] COVID - 19 07/24/2024 07/24/2024 07/24/2024 2:29 PM [employer] COVID - 19 08/22/2024 08/22/2024 08/22/2024 11:4 6 PM CDT COVID - 19 09/03/2024 09/03/2024 09/03/2024 12:4 7 PM CDT Assessment Noted Time PHQ-9 Depression Total Score: 4 11/08/19 9:33 AM CDT documented as of this encounter Care Teams Asbestos Textile Supervisor Relationship Specialty Start Date End Date Liz Capellan DO 2 [facility] [address] [place] [address] PCP - General Family Medicine 12/27/23 Quang Locke DO Gastroenterology 01/18/16 [place] [id number] [address] 05/25/21 Werner Swift MD #2 [place] [phone] Consulting Physician Pulmonary Disease 01/30/22 Yasmin Restrepo MD #2 [facility] [address] [place] [phone] Consulting Physician Endocrinology 07/20/24 Jose Do MD #[address] [address] Consulting Physician Colon and Rectal Surgery 10/12/24 documented as of this encounter
--- OUTSIDE RECORDS SUMMARY | 2025-03-23 14:59 | XMS_ITS | Clinical Summary ---
Author Organization [facility] Address [address] [place] [address] Phone Care Team Providers Care Teacher Of Family And Consumer Science Name Role Phone Sisivandana Quang Chacon DO Unavailable Silvio Schulte MD Unavailable [phone] Werner Swift MD Unavailable Liz Capellan DO Primary Care Provider [phone] Yasmin Restrepo MD Unavailable Jose Do MD Unavailable Allergies Active Allergy Reactions Criticality Noted Date Comments Penicillin V Anaphylaxis,Itching High 06/26/2018 Tongue gets thick Medications aspirin EC 81 MG Tablet Delayed ResponseIndicati ons:Atherosclero tic Disease,Thromboe mbolic Disease Prophylaxis Take 81 mg by mouth daily. Indications: Disease involving Lipid Deposits in the Arteries, Treatment to Prevent Disease with Thrombosis or Embolism 2 019 Active Corlanor 5 MG Tablet [...] TIMES DAILY 300 Each 1 024 Active Vascepa 1 g Capsule Take 1 Capsule by mouth in the morning and at bedtime. 024 Active OXYGEN CONCENTRATOR 2 L/min by [...] liquid. Indications: Constipation 90 Packet 024 Active albuterol 108 (90 Base) MCG/ACT Aerosol SolutionIndicati ons:Pulmonary emphysema, unspecified emphysema type USE TWO (2) PUFF(S) BY INHALATION ROUTE EVERY FOUR (4) HOURS NEEDED WHEEZING 18 g 1 025 Active levothyroxine (SYNTHROID) 50 MCG TabletIndication s:Acquired hypothyroidism TAKE ONE TABLET BY MOUTH DAILY 90 Tablet 2 025 Active Fluticasone-Umec lidin-Vilant (Trelegy Ellipta) 100-62.5-25 MCG/ACT AEROSOL POWDER, BREATH ACTIVATED take 1 Puff by inhalation daily. 60 Each 3 025 Active insulin glargine (Lantus SoloStar) 100 UNIT/ML Solution Pen-injector 15 Units by Subcutaneous route nightly. 15 mL 1 025 Active Dulaglutide (Trulicity) 1.5 MG/0.5ML Solution Auto-injector 1.5 mg by Subcutaneous route once a week. 6 mL 1 025 Active Additional Information Patient taking differently:1.5 mg Subcutaneous WEEKLY,Saturday, Reported on 03/11/2025 roflumilast (DALIRESP) 500 MCG Tablet TAKE ONE (1) TABLET BY MOUTH DAILY. 90 Tablet 3 025 Active METAMUCIL FIBER PO Take 1 Capful by mouth daily. Active fluticasone (FLONASE) 50 MCG/ACT Suspension TWO (2) SPRAYS BY NASAL ROUTE DAILY. 16 g 5 025 Active escitalopram (LEXAPRO) 20 MG Tablet Take 1 Tablet by mouth daily. 90 Tablet 1 025 Active Entresto 24-26 MG Tablet Take 1 Tablet by mouth 2 times daily. 025 Active Denosumab (PROLIA) 60 MG/ML Solution Prefilled Syringe 1 mL by Subcutaneous route See Admin Instructions. Administered 60 mg of Prolia 1 mL 1 025 Active rosuvastatin (CRESTOR) 20 MG Tablet Take 1 Tablet by mouth nightly. 90 Tablet 1 025 Active albuterol (PROVENTIL, VENTOLIN) (2.5 MG/3ML) 0.083% Nebulizer SolnIndications: Pulmonary emphysema, unspecified emphysema type USE ONE (1) VIAL THREE (3) ML BY NEBULIZATION ROUTE FOUR (4) TIMES DAILY NEEDED FOR WHEEZING OR SHORTNESS OF BREATH 1 mL 2 025 Active empagliflozin (Jardiance) 25 MG Tablet Take 1 Tablet by mouth daily. 90 Tablet 1 025 Active Magnesium 400 MG Tablet Take 1 Tablet by mouth 2 times daily. Active Finerenone (Kerendia) 20 MG Tablet Take 1 Tablet by mouth daily. Active Insulin Aspart (NOVOLOG FLEXPEN SC) 6 Units by Subcutaneous route 2 times daily. Active SUMAtriptan (IMITREX) 100 MG Tablet Take 0.5 Tablets by mouth once as needed for Migraine for up to 72 doses. Use as directed. May repeat dose in 2 hours if headache recurs. 9 Tablet 3 025 Active spironolactone (ALDACTONE) 25 MG Tablet Take 0.5 Tablets by mouth daily. 45 Tablet 1 025 Active ondansetron (Zofran) 4 MG TabletIndication s:Gastroparesis Take 1 Tablet by mouth every 8 hours as needed for Nausea - 1st line. 30 Tablet 1 025 Active BD Pen Needle Short Ultrafine 31G X 8 MM Misc USE WITH INSULIN THREE (3) TIMES DAILY 300 Pen Needle 1 025 Active valACYclovir (VALTREX) 500 MG Tablet Take 1 Tablet by mouth nightly. 90 Tablet 2 Active DULoxetine (CYMBALTA) [address] Particles Take 1 Capsule by mouth daily. 90 Capsule 1 025 Active omeprazole (PriLOSEC) 40 MG CAPSULE DELAYED RELEASEIndicatio ns:Gastroesophag eal Reflux Disease Take 1 Capsule by mouth daily. Indications: Gastroesophageal Reflux Disease 90 Capsule 1 025 Active gabapentin (NEURONTIN) 800 MG Tablet Take 1 Tablet by mouth 3 times daily. 90 Tablet 3 Active amitriptyline (ELAVIL) 50 MG Tablet Take 1 Tablet by mouth nightly. 90 Tablet 1 Active ergocalciferol (VITAMIN D) 09642 UNIT Capsule Take 1 Capsule by mouth once a week. 12 Capsule Active Continuous Glucose Sensor (FreeStyle Jluis 3 Plus Sensor) Misc Use as directed 1 Each 1 Active Additional Information Patient not taking.Reported on 03/11/2025 Continuous Glucose Sensor (FreeStyle Jluis 3 Sensor) Misc Use as directed 1 Each 1 Active Additional Information Patient not taking.Reported on 03/11/2025 Continuous Glucose Union Organiser (FreeStyle Jluis 3 Amber) Device Use as directed 1 Each 1 Active Additional Information Patient not taking.Reported on 03/11/2025 Denosumab (Prolia) 60 MG/ML Solution Prefilled Syringe 1 mL by Subcutaneous route every 180 days. 1 mL Active diazePAM (VALIUM) 5 MG TabletIndication s:Anxiety Take 1 Tablet by mouth nightly as needed for Anxiety. Indications: Feeling Anxious 30 Tablet 025 Active oxyCODONE-Acetam inophen (PERCOCET) 10-325 MG TabletIndication s:Anxiety and depression,Neuro dank Take 1 Tablet by mouth every 8 hours as needed for Severe pain. 90 Tablet 025 Active theophylline (CELESTE-24) 300 MG CAPSULE SR 24 HR Take 1 Capsule by mouth daily. 30 Capsule 2 025 Active famotidine (PEPCID) 20 MG TabletIndication s:Gastroesophage al Reflux Disease Take 1 Tablet by mouth every evening. Indications: Gastroesophageal Reflux Disease 90 Tablet 025 02/22 Discontinued( Error) risedronate (ACTONEL) 35 MG Tablet 025 02/22 Discontinued( Error) diazePAM (VALIUM) 5 MG TabletIndication s:Anxiety Take 1 Tablet by mouth nightly as needed for Anxiety. Indications: Feeling Anxious 30 Tablet 025 03/04 Discontinued( Reorder) oxyCODONE-Acetam inophen (PERCOCET) 10-325 MG TabletIndication s:Anxiety and depression,Neuro dank Take 1 Tablet by mouth every 8 hours as needed for Severe pain. 90 Tablet 025 03/04 Discontinued( Reorder) Continuous Glucose Union Organiser (FreeStyle Jluis 3 Amber) Device Use as directed 1 Each 1 02/22 Discontinued Continuous Glucose Sensor (FreeStyle Jluis 3 Plus Sensor) Misc Use as directed 1 Each 02/22 Discontinued( Reorder) Continuous Glucose Sensor (FreeStyle Jluis 3 Sensor) Misc Use as directed 1 Each 1 02/22 Discontinued( Reorder) theophylline (CELESTE-24) 300 MG CAPSULE SR 24 HR Take 1 Capsule by mouth daily for 30 days. 30 Capsule 03/17 Discontinued( Reorder) levoFLOXacin (LEVAQUIN) 750 MG Tablet Take 1 Tablet by mouth daily for 5 days. 5 Tablet 02/27 predniSONE (DELTASONE) 10 MG Tablet 5 tabs a day for 3 days, 4 tabs for 3 days, 3 tabs for 3 days, 2 tabs for 3 days, then d/c 20 Tablet 03/05 Continuous Glucose Union Organiser (FreeStyle Jluis 3 Amber) Device Use as directed 1 Each 02/22 Discontinued guaiFENesin-code ine (guaiFENesin AC) 100-10 MG/5ML SolutionIndicati ons:COPD with exacerbation Take 5 mL by mouth every 4 hours as needed for Cough for up to 7 days. 180 mL 025 03/18 cefdinir (OMNICEF) 300 MG CapsuleIndicatio ns:COPD with exacerbation Take 1 Capsule by mouth 2 times daily for 7 days. 14 Capsule 025 03/18 Hospital, Clinic, or Other Facility Administered Medication Ordered Dose Route Frequency Start Date End Date Status tropicamide (MYDRIACYL) 1 % solution 1 DropIndications:Type 2 diabetes mellitus with diabetic neuropathy, with long-term current use of insulin 1 Drop BOTH EYES ONCE 03/01/2025 03/01/2025 Ended Active Problems Patient Care Coordination No te Formatting of this note migh t be different from the original. Workforce Manager's Impressions: Kary is a 70 y.o. female who was referred to care management for Complex care needs During this assessment, it was determined that the patient and this content writer will focus on the followin. COPD Management 2. CHF Weight Monitoring 3. Patient/Caregiver Support ACP: Power of Deicer Tester for Health Care (POA-HC): POA-HC form is [...] exam; Tdap Problem Noted Date Diagnosed Date History of hysterectomy 03/11/2025 History of foot surgery 03/11/2025 History of back surgery 03/11/2025 SBO (small bowel obstruction) 12/14/2024 Sepsis 10/05/2024 Esophagitis 10/05/2024 Type 2 diabetes mellitus wit h diabetic peripheral angiopathy without gangrene 08/31/2024 Severe malnutrition 04/28/2024 Cognitive impairment 03/20/2024 Cerebral atherosclerosis 08/03/2023 Overview (03/11/2025): no cva ct Chronic cough 01/31/2023 04/12/2023 Tobacco dependence syndrome 01/31/202303/[address] lung nodules on CT 01/30/2022 Chronic combined systolic and diastolic heart fa ilure 10/19/2021 Edema 08/21/2021 Overview (10/05/2021): Added automatically from request for surgery [id number] Back pain 11/09/2019 Tricuspid valve insufficiency 11/09/2019 [...] 04/02/2016 Hiatal hernia 04/02/2016 Iron deficiency 04/02/2016 Other specified abnormal findings of blood chemi stry 04/02/2016 Anemia, iron deficiency 04/02/2016 PVCs (premature ventricular contractions) 2015 [...] Problem Noted Date Diagnosed Date Resolved Date HCAP (healthcare-associated pneumonia) 10/05/2024 01/04/2025 COPD exacerbation 08/22/2024 01/04/2025 Pneumonia of right lung due to infectious [...] diastolic heart failure 11/24/2015 08/14/2021 Overview (04/25/2020): [facility] enroll Diastolic dysfunction 06/12/20132023 Overview (04/25/2020): lowest 35, no cad by cath Encounters Date Type Department Care Team Description 03/17/2025 [facility] [address] [place] [address] Liz Capellan, DO Medication Refill 03/11/2025 11:40 AM CDT Office Visit [facility] [address] [place] [address] Sarah Lorenzo, FROZEN PIE MAKER, STORAGE WORKER COPD with exacerbation (Primary Dx); Chronic cough; Gastroesophageal reflux disease without esophagitis Discharge Disposition: Discharged to home or Selfcare 03/11/2025 Travel 03/04/2025 [facility] [address] [place] [address] Liz Capellan, DO Medication Refill 03/04/2025 Results Follow-Up [facility] [address] [place] [address] Liz Capellan DO XR CHEST 2 VIEWS 03/03/2025 1:47 PM CDT - 03/03/2025 11:59 PM CDT Hospital Encounter [facility] Radiology [address] [place] [address] Liz Capellan DO Discharge Disposition: Discharged to home or Selfcare 03/01/2025 1:45 PM CDT Procedure Visit [facility] [address] [place] [address] Type 2 diabetes mellitus with diabetic neuropathy, with long-term current use of insulin (Primary Dx) Discharge Disposition: Discharged to home or Selfcare 03/01/2025 1:30 PM CDT Office Visit [facility] [address] [place] [address] Yasmin Restrepo MD Type 2 diabetes mellitus with diabetic neuropathy, with long-term current use of insulin (Primary Dx); Hypoglycemia; Diabetic nephropathy associated with type 2 diabetes mellitus Discharge Disposition: Discharged to home or Selfcare 03/01/2025 Travel 02/23/2025 1:00 PM CDT Clinical Support [facility] [address] [place] [address] Liz Capellan DO Age-related osteoporosis without current pathological fracture (Primary Dx) Discharge Disposition: Discharged to home or Selfcare 02/23/2025 Travel 02/22/2025 2:00 PM CDT Office Visit [facility] [address] [place] [address] Liz Capellan DO Presence of automatic (implantable) cardiac defibrillator (Primary Dx); Type 2 diabetes mellitus with diabetic neuropathy, with long-term current use of insulin (HCC); Hyperlipidemia, unspecified hyperlipidemia type; Anxiety and depression; Chronic combined systolic and diastolic heart failure (HCC); Chronic obstructive pulmonary disease, unspecified COPD type (HCC); Pneumonia due to infectious organism, unspecified laterality, unspecified part of lung; Insomnia, unspecified type Discharge Disposition: Discharged to home or Selfcare 02/22/2025 Travel 02/17/2025 2:15 PM CDT Office Visit [facility] General Surgery - [place] [address] [address] Jose Do MD Rectal prolapse (Primary Dx); Full incontinence of feces Discharge Disposition: Discharged to home or Selfcare 02/17/2025 Travel 02/16/2025 Telephone [facility] [address] [place] [address] Liz Capellan, DO Medication Management 02/16/2025 Refill [facility] [address] [place] [address] Liz Capellan, DO Medication Refill 02/11/2025 Refill [facility] [address] [place] [address] Liz Capellan, DO Medication Refill 02/09/2025 11:45 AM CDT - 02/09/2025 11:59 PM CDT [facility] [address] [place] [address] Ana Vivar, REBECCA, STORAGE WORKER Discharge Disposition: Discharged to home or Selfcare 02/09/2025 11:00 AM CDT Office Visit [facility] [address] [place] [address] Ana Vivar, REBECCA, STORAGE WORKER Chronic obstructive pulmonary disease, unspecified COPD type (HCC) (Primary Dx); Productive cough; Chest congestion Discharge Disposition: Discharged to home or Selfcare 02/09/2025 Results Follow-Up [facility] [address] [place] [address] Ana Vivar, FROZEN PIE MAKER, STORAGE WORKER XR CHEST 2 VIEWS 02/09/2025 Travel 02/08/2025 Nurse Triage [facility] [address] [place] [address] Liz Capellan, DO Advice Only; Cough 02/04/2025 Refill [facility] [address] [place] [address] Liz Capellan, DO Medication Refill 02/02/2025 Results Follow-Up [facility] Pulmonology & Sleep Medicine [facility] [address] [place] [address] CHEST W/O CONTRAST 02/01/2025 6:30 PM CDT - 02/01/2025 11:59 PM CDT [facility] [address] [place] [address] Werner Swift MD Discharge Disposition: Discharged to home or Selfcare 02/01/2025 Travel 02/01/2025 Telephone [facility] [address] [place] [address] Liz Capellan, DO Results; Medication Management 02/01/2025 Refill [facility] [address] [place] [address] Keith Craft MD Medication Refill 01/19/2025 Refill [facility] [address] [place] [address] Liz Capellan, DO Medication Refill 01/15/2025 1:30 PM CDT Lab [facility] [address] [address] Lab, [place] [facility] Chronic systolic CHF (congestive heart failure) ([facility]); Type 2 diabetes mellitus with diabetic neuropathy, with long-term current use of insulin ([facility]); SBO (small bowel obstruction) ([facility]); Cloudy urine; Malodorous urine Discharge Disposition: Discharged to home or Selfcare 01/15/2025 Travel 01/05/2025 [facility] [place] [address] Liz Capellan, DO Medication Refill 01/04/2025 1:30 PM CDT Office Visit [facility] Pulmonology & Sleep Medicine [facility] [address] [place] [address] Werner Swift MD Other emphysema ([facility]) (Primary Dx); Multiple lung nodules on CT; Tobacco dependence syndrome Discharge Disposition: Discharged to home or Selfcare 01/04/2025 Travel 12/30/2024 1:45 PM CDT Office Visit [facility] General Surgery [facility] [address] [address] Jose Do MD Rectal prolapse (Primary Dx); Full incontinence of feces; Hx SBO Discharge Disposition: Discharged to home or Selfcare 12/30/2024 Travel 12/30/2024 Telephone [facility] [address] [place] [address] Liz Capellan DO Advice Only 12/29/2024 1:30 PM CDT Home Care Visit [address] [address] Hiren Shoemaker, KATEY SN - OASIS DISCHARGE 12/29/2024 Home Care Visit [address] [address] Marci Zepeda RN CARE CONFERENCE 12/24/2024 1:00 AM CDT Home Care Visit [address] [address] Marci Zepeda RN SN - PRIORITY VISIT 12/23/2024 [facility]ill [facility] [address] [place] [address] Liz Capellan, DO Medication Refill 12/22/2024 10:45 AM CDT Home Care Visit [address] [address] Marci Feliz, OT OT - INITIAL EVALUATION 12/22/2024 Telephone [facility] [address] [place] [address] Liz Capellan, DO Medication Refill 12/21/2024 1:15 PM CDT Office Visit [facility] [address] [place] [address] Ana Vivar, FROZEN PIE MAKER, STORAGE WORKER SBO (small bowel obstruction) ([facility]) (Primary Dx); Gastroesophageal reflux disease with esophagitis without hemorrhage; Chronic systolic CHF (congestive heart failure) ([facility]); Constipation, unspecified constipation type; Type 2 diabetes mellitus with diabetic neuropathy, with long-term current use of insulin ([facility]); Hypertriglyceridemia Discharge Disposition: Discharged to home or Selfcare 12/21/2024 11:00 AM CDT Home Care Visit [address] [address] Grace Friedman, PT PT - INITIAL EVALUATION 12/21/2024 9:30 AM CDT Home Care Visit [address] [address] Rebeca Blake LPN FORENSIC ENGINEER - HOME VISIT 12/21/2024 Travel from Last 3 Months Immunizations Immunization Administration Dates Next Due Covid-19, Mrna, Lnp-s, PF, 1 00 mcg/0.5 mL Dose (Moderna) 07/30/2020,07/02/2020 Influenza Vaccine 03/10/2023,07/31/2017 Influenza Vaccine greater than 3 yrs 01/18/2021, 01/21/2020 Influenza, High-dose, Quadrivalent 01/18/2021 Influenza, Quadrivalent, Adjuvanted 02/05/2022 Influenza, Seasonal, Injecta ble, Undefined 01/21/2020 Influenza, high-dose, trivalent, PF 01/2025,03/03/2024,01/19/2020,02/03,01/31/2017,02/10/2016,02/01/2014 Pneumococcal Vaccine - 13 Valent 02/20/2018,05/2014 Pneumococcal Vaccine Adult - 23 Valent 9 Pneumococcal conjugate PCV20 , polysaccharide [id number] conjugate, adjuvant, PF 11/28/2022 RSV, Recombinant, Protein [...] Smokeless Tobacco: Never Tobacco Cessation:Counseling Given: No Alcohol Use Standard Drinks/Week Comments No 0 [...] declined 10/05/2024 How often do you attend confucianism or yazidism serv ices? Patient declined 10/05/2024 Do you [...] Recorded Total Score - Questions 1-9 0 02/24 [facility] - Occupational [...] any time in the past 12 m [facility], were you homeless or living in a custodial (including now)? No 10/05/2024 Social Connection and Isolation Panel Answer Date Recorded In a typical week, how many times do you talk on the phone with family, friends, or neighbors? Patient declined 12/14/2024 How often do you get togethe r with friends or relatives? Patient declined 12/14/2024 How often do you attend confucianism or yazidism serv ices? Patient declined 12/14/2024 Do you [...] medical care, and heating? Patient declined 12/14/2024 [facility] - Occupational [...] any time in the past 12 m [facility], were you homeless or living in a custodial (including now)? Patient declined 12/14/2024 [facility] Utilities Answer Date Recorded In the past 12 months has th e [employer], gas, oil, or water company threatened to [...] Sign Reading Time Taken Comments Blood Pressure 116/64 03/11/2025 11:03 AM CDT Pulse 69 03/11/2025 11:03 AM CDT Temperature 36.2 C (97.2 F) 03/11/2025 11:03 AM CDT Respiratory Rate 16 03/11/2025 11:03 AM CDT Oxygen Saturation 92% 03/11/2025 11:03 AM CDT Inhaled Oxygen Concentration - - Weight 61.2 kg (135 lb) 03/11/2025 11:03 AM CDT Height 157.5 cm (5' 2) 03/11/2025 11:03 AM CDT Body Mass Index 24.69 03/11/2025 11:03 AM CDT Plan of Treatment Upcoming Encounters Date Type Department Care Team (Late st Contact Info) Description 04/26/2025 1:30 PM DIPPER AND BAKER Office Visit [facility] - Pulmonology & Sleep Medicine - [place] [address] [place] [address] Werner Swift MD [address] [place] [address] 05/31/2025 1:20 PM DIPPER AND BAKER Office Visit [facility] - Family Medicine - [place] [address] [place] [address] Liz Capellan, DO 2 [facility]. [address] [place] [address] 06/02/2025 1:30 PM DIPPER AND BAKER Office Visit [facility] - Endocrinology - [place] [address] [place] [address] Yasmin Restrepo MD [address] [address] Health Maintenance Due Date Last Done Comments Cologuard 1994 Medicare Initial AWV [id number] 01/24/2010 Immunochemical Fecal Occult Blood 06/02/2024 06/02/2023 Diabetes: Hemoglobin A1c 06/16/2025 025, 11/09/2024, 08/22/2024, Additional history exists Diabetes: Foot Exam 10/27/2025 10/27/2024, 07/20/2024, 01/08/2024, Additional history exists Colonoscopy 01/08/2026 01/09/2016 Colorectal Cancer Screening 01/08/2026 Diabetes: Nephropathy Screening 01/18/2026 01/18/2025, 12/14/2024, 11/09/2024, Additional history exists Lung Cancer Screening 02/01/2026 02/01/2025 , 02/01/2025, 07/29/2024, Additional history exists Diabetes: Eye Exam 03/01/2026 03/01/2025, 03/02/2022 DEXA Bone Density 11/18/2026 11/18/2024, 04/03/2022 Td [...] (Adult) Completed 03/22/2023 Influenza Immunization Completed , 03/03/2024, 03/10/2023, Additional history exists SARS-COV-2 Immunization Discontinued 02/03/20, 03/03/2024, 02/24/2023, Additional history exists Hepatitis B Immunization Discontinued [...] Disease Management On track(2022 10:36 AM CDT) No Rollins, Bri M, RN Note: Goal: I will effectively manage [...] Zones/Action plan education. I will notify my Workforce Manager if my symptoms fall in the [...] MCCP TYPE 2 DIABETES CONCERN No Liz Capellan, DO Help patient manage blood glucose Care Plan MCCP TYPE 2 DIABETES INSULIN - ANALOG PATTERN CONCERN No Liz Capellan, DO Medical Devices Implanted Type Area Sawdust Drier Device Identifier Shelf Expiration Date Model / Serial / Lot Nail Im Gamma3 Long 11mm 1.5mm 180mm 125deg Angled Lock Lt Femoral Titanium Strl - [id number] Implanted:Qty: 1 on 05/29/2023 by Rocael Solano MD at [facility] IMPLANT Left: Femur [employer] 12/25/2027 3125-1 180 S / [id number] / [id number] Screw Bone T10 Full Thread 3.5mm/28mm - [id number] Implanted:Qty: 1 on 05/29/2023 by [facility] at [facility] IMPLANT Left: Humerus [employer] 06/26/2023 [id number] / [id number] / N/A Screw Bone T10 Full Thread 3.5mm/34mm - [id number] Implanted:Qty: 1 on 05/29/2023 by Rocael Solano MD at [facility] IMPLANT Left: Humerus [employer] 06/26/2023 [id number] / [id number] / N/A Screw Bone T10 Full Thread 3.5mm/55mm - [id number] Implanted:Qty: 1 on 05/29/2023 by Rocael Solano MD at [facility] IMPLANT Left: Humerus [employer] 06/26/2023 [id number] / [id number] / N/A Screw Locking T10 Full Thread 3.5mm/16mm - [id number] Implanted:Qty: 1 on 05/29/2023 by Rocael Solano MD at [facility] IMPLANT Left: Humerus [employer] 06/26/2023 [id number] / [id number] / N/A Screw Locking T10 Full Thread 3.5mm/18mm - [id number] Implanted:Qty: 1 on 05/29/2023 by Rocael Solano MD at [facility] IMPLANT Left: Humerus [employer] 06/26/2023 [id number] / [id number] / N/A Screw Locking T10 Full Thread 3.5mm/22mm - [id number] Implanted:Qty: 4 on 05/29/2023 by Rocael Solano MD at [facility] IMPLANT Left: Humerus [employer] 06/26/2023 [id number] / [id number] / N/A Screw Locking T10 Full Thread 3.5mm/26mm - [id number] Implanted:Qty: 1 on 05/29/2023 by Rocael Solano MD at [facility] IMPLANT Left: Humerus [employer] 06/26/2023 [id number] / [id number] / N/A Screw Locking T10 Full Thread 3.5mm/30mm - [id number] Implanted:Qty: 2 on 05/29/2023 by Rocael Solano MD at [facility] IMPLANT Left: Humerus [employer] 06/26/2023 [id number] / [id number] / N/A Screw Bone 10.5mm 80mm Gamma3 Ti Hip Trochanter Lag Strl Long Nail - [id number] Implanted:Qty: 1 on 05/29/2023 by Rocael Solano MD at [facility] IMPLANT Left: Femur [employer] 09/24/2027 [id number] / [id number] S / [id number] Screw Bone 5mm 32.5mm T2 Ti Fthrd Femur Hum Tibia Prox Lock Strl Im Nail Sys - [id number] Implanted:Qty: 1 on 05/29/2023 by [facility] IMPLANT Left: Femur [employer] 12/24/2026 [id number] S / [id number] S / [id number] Screw Locking T10 Full Thread 3.5mm/36mm - [id number] Implanted:Qty: 1 on 05/29/2023 by Rocael Solano MD at [facility] IMPLANT Left: Humerus [employer] 06/26/2023 [id number] / [id number] / N/A Screw Locking T10 Full Thread 3.5mm/55mm - [id number] Implanted:Qty: 1 on 05/29/2023 by Rocael Solano MD at [facility] IMPLANT Left: Humerus [employer] 06/26/2023 [id number] / [id number] / N/A Plate 89mm Ti 4 Shaft Hole Lock Variax Bone Elbow Left Olecranon Ns - [id number] Implanted:Qty: 1 on 05/29/2023 by Rocael Solano MD at [facility] IMPLANT Left: Humerus [employer] 06/26/2023 [id number] / [id number] / N/A Screw Bone T10 Full Thread 3.5mm/18mm - [id number] Implanted:Qty: 1 on 05/29/2023 by Rocael Solano MD at [facility] IMPLANT Left: Humerus [employer] 06/26/2023 [id number] / [id number] / N/A Screw Bone T10 Full Thread 3.5mm/22mm - [id number] Implanted:Qty: 1 on 05/29/2023 by Rocael Solano MD at [facility] IMPLANT Left: Humerus [employer] 06/26/2023 [id number] / [id number] / N/A Screw Bone T10 Full Thread 3.5mm/26mm - [id number] Implanted:Qty: 2 on 05/29/2023 by Rocael Soalno MD at [facility] IMPLANT Left: Humerus [employer] 06/26/2023 [id number] / [id number] / N/A 3.5mm X 60mm Locking Screw Implanted:Qty: 1 on 05/29/2023 by Rocael Solano MD at [facility] Left: Humerus [employer]SEM[employer] 06/26/2023 [id number] / [id number] / N/A 2.7mm X 18mm Non Locking Screw Implanted:Qty: 1 on 05/29/2023 by Rocael Solano MD at [facility] Left: Humerus [employer] 06/26/2023 [id number] / [id number] / N/A Left Distal Lateral Humerus Plate 2 Hole Implanted:Qty: 1 on 05/29/2023 by Rocael Solano MD at [facility] Left: Humerus ROSEMARY 06/26/2023 [id number] / [id number] / N/A Distal Medial Humerus Plate 3 Hole Implanted:Qty: 1 on 05/29/2023 by Rocael Solano MD at [facility] Left: Humerus ROSEMARY 06/26/2023 [id number] / [id number] / N/A 3.5mm X 20mm Implanted:Qty: 1 on 05/29/2023 by Rocael Solano MD at [facility] Left: Humerus ROSEMARY 06/26/2023 [id number] / [id number] / N/A Procedures Procedure Name Priority Date/Time Associated Diagnosis Comments XR CHEST 2 VIEWS Routine 03/03/2025 2:18 PM CDT Pneumonia due to infectious organism, unspecified laterality, unspecified part of lung DIABETIC BILATERAL RETINAL IMAGING WITH COMPUTERIZED INTERPRETATION Routine 03/01/2025 2:18 PM CDT Type 2 diabetes mellitus with diabetic neuropathy, with long-term current use of insulin XR CHEST 2 VIEWS Routine 02/09/2025 12:0 3 PM CDT Productive cough Chest congestion CT CHEST W/O CONTRAST Routine 02/01/2025 6:44 PM CDT Multiple lung nodules on CT URINALYSIS REFLEX IF INDICATED BY ABNORMAL RESULTS Routine 01/18/2025 4:01 PM CDT Cloudy urine Malodorous urine UR MICROALBUMIN/CREATININ E RATIO RANDOM Routine 01/18/2025 4:01 PM CDT Type 2 diabetes mellitus with diabetic neuropathy, with long-term current use of insulin (HCC) CULTURE, URINE Routine 01/18/2025 4:01 PM CDT Cloudy urine Malodorous urine CBC WITH AUTO DIFFERENTIAL Routine 01/15/2025 1:31 PM CDT SBO (small bowel obstruction) (HCC) COMPLETE BLOOD COUNT (CBC) WITH DIFF Routine 01/15/2025 1:31 PM CDT SBO (small bowel obstruction) (HCC) BASIC METABOLIC PANEL W/ CALCIUM TOTAL Routine 01/15/2025 1:31 PM CDT Chronic systolic CHF (congestive heart failure) (HCC) HEMOGLOBIN A1C W/ ESTIMATED GLUCOSE Routine 12/14/2024 10:03 AM CDT RADHA BONE DENSITOMETRY AXIAL SKELETON Routine 11/18/2024 11:32 AM CDT Screening for osteoporosis Unspecified menopausal and perimenopausal disorder PODIATRY CONSULT 10/27/2024 12:0 0 AM CDT STOOL, OCCULT BLOOD, DIAGNOSTIC, VIA GUAIAC STAT 06/02/2023 5:05 PM [employer]IPPER [employer] BAKER RADHA SCREENING BILATERAL DIGITAL W CAD W CLARI Routine 02/26/2023 1:23 PM CDT Visit for screening mammogram HEPATITIS C ANTIBODY Routine 12/17/2022 11:39 AM CDT Need for hepatitis C screening test from Last 3 Months or Most Recently Relevant to Health Maintenance Results * XR CHEST 2 VIEWS (03/03/2025 2:18 PM CDT) Only the most recent of2 resultswithin the time period is included. Anatomical Region Laterality Modality Chest N/A Digital Radiogra phy 03/03/2025 2:18 PM CDT Impressions 03/03/2025 4:26 PM CDT IMPRESSION: No acute findings. Narrative 03/03/2025 4:26 PM CDT XR CHEST 2 VIEWS : 03/03/2025 2:18 PM DICTATING PHYSICIAN: Roderick Kramer [facility]. HISTORY: ADDITIONAL TECHNOLOGIST HISTORY: Pneumonia, unspecified organism COMPARISON: Chest radiograph February 09, 2025 TECHNIQUE: PA and lateral radiographs of the chest were obtained. FINDINGS: Cardiomediastinal silhouette: Within normal limits. Pulmonary vascularity: Within normal limits. Lung parenchyma: Increased AP diameter of the chest. Flattened diaphragms consistent with chronic obstructive lung disease Pleura: No evidence for effusion or pneumothorax. Osseous structures: Demineralized Support lines and tubes: Pacemaker generator leads via left subclavian vein are stable. Leads overlie the right atrium and ventricle. Post operative changes: None Procedure Note Roderick Kramer MD - 03/03/2025 XR CHEST 2 VIEWS : 03/03/2025 2:18 PM DICTATING PHYSICIAN: Roderick Kramer [facility]. HISTORY: ADDITIONAL TECHNOLOGIST HISTORY: Pneumonia, unspecified organism COMPARISON: Chest radiograph February 09, 2025 TECHNIQUE: PA and lateral radiographs of the chest were obtained. FINDINGS: Cardiomediastinal silhouette: Within normal limits. Pulmonary vascularity: Within normal limits. Lung parenchyma: Increased AP diameter of the chest. Flattened diaphragmsconsistent with chronic obstructive lung disease Pleura: No evidence for effusion or pneumothorax. Osseous structures: Demineralized Support lines and tubes: Pacemaker generator leads via left subclavianvein are stable. Leads overlie the right atrium and ventricle. Post operative changes: None IMPRESSION: No acute findings. us Liz Askew Marilia DO IMG DIAGNOSTIC ORDERABLES Fin al Result * (ABNORMAL) DIABETIC BILATERAL RETINAL IMAGING WITH COMPUTERIZED INTERPRETATION (03/01/2025 2:18 PM CDT) DIABETIC BILATERAL DIGITAL RETINAL IMAGING Diabetic Retinopathy Detected: ETDRS level 35 or higher and/or Diabetic Macular Edema(A) DIGITAL DIAGNOSTICS Comment: Next Steps: Refer to polisher eyeglass frames IDx Submission ID: [id number] Results were produced by a system that provides an artificial intelligence (AI) interpretation A positive result indicates a high risk of diabetic retinopathy with a severity of ETDRS level 35 or higher and/or macular edema. IDx-DR diabetic retinopathy exam does not replace a comprehensive eye exam. Other 03/01/2025 2:18 PM CDT Yasmin Restrepo MD OUTPT PROCEDURE ORDERABLES Final Result EXTERNAL EKG DIGITAL DIAGNOSTICS * CT CHEST W/O CONTRAST (02/01/2025 6:44 PM CDT) Anatomical Region Laterality Modality Chest N/A Computed Tomogra phy 02/01/2025 6:44 PM CDT Impressions 02/01/2025 6:51 PM CDT IMPRESSION: Resolution of left lung nodular infiltrates, resolution of pleural effusions. There is some mild branching nodularity periphery of the anterolateral right upper lobe, likely an infectious or inflammatory process, follow-up per Fleischner criteria however. Fleischner Guidelines: SM6-H : < 6 mm - Solid - Multiple- High Risk: Optional CT in 12 months. Fleischner Society Reference Chart: http://pubs.rsna.org/na101/home/literatum/publisher/rsna/journals/content/radiol ogy/2 017/radiol.2017.284.issue- 1/radiol.[id number]/[id number]/images/large/radiol.[id number] .tbl1.jpeg Narrative 02/01/2025 6:[address] CHEST W/O CONTRAST : 02/01/2025 6:44 PM DICTATING PHYSICIAN: VISHAL LAWLER [facility]. HISTORY: As below. ADDITIONAL TECHNOLOGIST HISTORY: Other nonspecific abnormal finding of lung field TECHNIQUE: Multiple helical axial images were obtained through the chest without contrast. Coronal reformats were performed. Image acquisition performed utilizing automated exposure control (AEC) and iterative reconstruction software in order to lower patient dose. RADIATION DOSE: DLP 241 COMPARISON: 10/05/2024. FINDINGS: Heart and great vessels: Coronary artery calcifications. Left subclavian ICD. No acute findings. Pericardium: No fluid or thickening. Lymph nodes: No evidence for pathologic axillary, mediastinal, or hilar lymphadenopathy. Esophagus: Chronic diffuse wall thickening. Pleura: No pleural effusion or thickening. Lung parenchyma: Nodular infiltrates within the left upper lobe and left lower lobe have resolved. There is some branching nodularity within the anterolateral right upper lobe, likely infectious or inflammatory. Scattered peripheral fibrotic changes are seen as well as dependent atelectasis. Osseous structures and soft tissues: Multiple unchanged lower thoracic and upper lumbar compression fractures. Cephalad abdomen: Limited visualization of the upper abdomen does not demonstrate any acute finding. Procedure Note Vishal Lawler MD - 02/01/2025 CT CHEST W/O CONTRAST : 02/01/2025 6:44 PM DICTATING PHYSICIAN: VISHAL LAWLER [facility]. HISTORY: As below. ADDITIONAL TECHNOLOGIST HISTORY: Other nonspecific abnormal finding oflung field TECHNIQUE: Multiple helical axial images were obtained through the chest withoutcontrast. Coronal reformats were performed. Image acquisition performedutilizing automated exposure control (AEC) and iterative reconstructionsoftware in order to lower patient dose. RADIATION DOSE: DLP 241 COMPARISON: 10/05/2024. FINDINGS: Heart and great vessels: Coronary artery calcifications. Left subclavianICD. No acute findings. Pericardium: No fluid or thickening. Lymph nodes: No evidence for pathologic axillary, mediastinal, or hilarlymphadenopathy. Esophagus: Chronic diffuse wall thickening. Pleura: No pleural effusion or thickening. Lung parenchyma: Nodular infiltrates within the left upper lobe and leftlower lobe have resolved. There is some branching nodularity within theanterolateral right upper lobe, likely infectious or inflammatory.Scattered peripheral fibrotic changes are seen as well as dependentatelectasis. Osseous structures and soft tissues: Multiple unchanged lower thoracic andupper lumbar compression fractures. Cephalad abdomen: Limited visualization of the upper abdomen does notdemonstrate any acute finding. IMPRESSION: Resolution of left lung nodular infiltrates, resolution of pleuraleffusions. There is some mild branching nodularity periphery of theanterolateral right upper lobe, likely an infectious or inflammatoryprocess, follow-up per Fleischner criteria however. Fleischner Guidelines: SM6-H : < 6 mm - Solid - Multiple- High Risk:Optional CT in 12 months. Fleischner Society Reference Chart: http://pubs.rsna.org/na101/home/literatum/publisher/rsna/journals/content/radiol ogy/2 017/radiol.2017.284.issue- 1/radiol.[id number]/images/large/radiol.[id number] .tbl1.jpeg Werner Swift MD IMG CT ORDERABLES Final Result * (ABNORMAL) URINALYSIS REFLEX IF INDICATED BY ABNORMAL RESULTS (01/18/2025 4:01 PM CDT) SPECIFIC GRAVITY 1.010 1.003 - 1.030 01/18/2025 6:31 PM CDT [facility] URINE PH 6.5 5.0 - 9.0 01/18/2025 6:31 PM CDT [facility] WBC ESTERASE 100 /uL(A) Negative 01/18/2025 6:31 PM CDT [facility] NITRITE Negative Negative 01/18/2025 6:31 PM CDT [facility] PROTEIN, RANDOM URINE 30 mg/dL(A) Negative 01/18/2025 6:31 PM CDT [facility] URINE GLUCOSE, QUAL 1000 mg/dL(A) Negative 01/18/2025 6:31 PM CDT [facility] URINE KETONES Negative Negative 01/18/2025 6:31 PM CDT [facility] UROBILINOGEN Normal Normal mg/dL 01/18/2025 6:31 PM CDT [facility] URINE BLOOD Negative Negative bharathi/ul 01/18/2025 6:31 PM CDT [facility] URINALYSIS COLOR Yellow 01/19/20 6:31 PM CDT [facility] URINALYSIS CLARITY Very Cloudy 01/18/2025 6:31 PM CDT [facility] WBC (Urine) 51-150(A) Negative, 0-5 /hpf 01/18/2025 6:31 PM CDT [facility] URINE RBC'S 0-2 Negative, 0-2 /hpf 01/18/2025 6:31 PM CDT [facility] EPITHELIAL CELLS Moderate amount /lpf 01/18/2025 6:31 PM CDT [facility] BACTERIA, URINE Negative Negative /hpf 01/18/2025 6:31 PM CDT [facility] Urine URINE SPECIMEN OBTAINED BY CLEAN CATCH PROCEDURE / Unknown Non-Phlebotomy Collection / Unknown 01/18/2025 4:01 PM CDT 01/18/2025 4:01 PM CDT us Liz Capellan DO URINE ORDERABLES Final Result [facility] [place] [address] * (ABNORMAL) UR MICROALBUMIN/CREATININE RATIO RANDOM (01/18/2025 4:01 PM CDT) RAN UR MICROALBUMIN 1.77 mg/dL 01/18/2025 5:11 PM CDT [facility] Comment:No reference range h as been established. Consider Clinical Correlation. CREATININE URINE 36.6 mg/dL 01/19/20 5:11 PM CDT [facility] Comment:No reference range h as been established. Consider Clinical Correlation. ALB/CREAT RATIO 48(H) 0 - 30 mg/g CRE 01/18/2025 5:11 PM CDT [facility] Urine Non-Phlebotomy Collection / Unknown 01/18/2025 4:01 PM CDT 01/18/2025 4:01 PM CDT us Liz Jamilah Marilia DO URINE ORDERABLES Final Result [facility] [place] [address] * CULTURE, URINE (01/18/2025 4:01 PM CDT) Pathologist [facility] CULTURE RESULTS Mixed Growth of One or More Distal Urethral Contaminants 01/20/2025 8:10 AM CDT [facility] Urine URINE SPECIMEN OBTAINED BY CLEAN CATCH PROCEDURE / Unknown Non-Phlebotomy Collection / Unknown 01/18/2025 4:01 PM CDT 01/18/2025 4:01 PM CDT us Liz Capellan DO MICROBIOLOGY - GENERAL ORDERA BLES Final Result Performing Organization Address City/[facility]/ZIP Co de Phone Number [facility] [address] [place] [address], [place] * (ABNORMAL) CBC WITH AUTO DIFFERENTIAL (01/15/2025 1:31 PM CDT) WBC 8.95 4.00 - 12.00 10(3)/mcL 01/15/2025 4:26 PM CDT [facility] RBC 3.42(L) 3.80 - 5.30 10(6)/mcL 01/15/2025 4:26 PM CDT [facility] HEMOGLOBIN (HGB) 12.0 12.0 - 15.8 g/dL 01/15/2025 4:26 PM CDT [facility] HEMATOCRIT (HCT) 38.5 36.0 - 47.0 % 01/15/2025 4:26 PM CDT [facility] MCV 112.6(H) 82.0 - 96.0 fL 01/15/2025 4:26 PM CDT [facility] MCH 35.1(H) 26.0 - 34.0 pg 01/15/2025 4:26 PM CDT [facility] MCHC 31.2 31.0 - 36.0 g/dL 01/15/2025 4:26 PM CDT [facility] PLATELET COUNT 276 140 - 440 10(3)/mcL 01/15/2025 4:26 PM CDT [facility] RDW 13.3 11.8 - 15.5 % 01/15/2025 4:26 PM CDT [facility] MPV 10.1 9.7 - 12.4 fL 01/15/2025 4:26 PM CDT [facility] NEUTROPHILS 69.3 47.0 - 73.0 % 01/15/2025 4:26 PM CDT [facility] LYMPHOCYTES 21.7 18.0 - 42.0 % 01/15/2025 4:26 PM CDT [facility] MONOCYTES 6.7 4.0 - 12.0 % 01/15/2025 4:26 PM CDT [facility] EOSINOPHILS 1.3 0.0 - 5.0 % 01/15/2025 4:26 PM CDT [facility] BASOPHILS 0.7 0.0 - 1.0 % 01/15/2025 4:26 PM CDT [facility] IMMATURE GRANULOCYTE 0.3 0.0 - 0.4 % 01/15/2025 4:26 PM CDT [facility] ABSOLUTE NEUTROPHILS 6.20 1.60 - 7.70 10(3)/mcL 01/15/2025 4:26 PM CDT [facility] ABSOLUTE LYMPHOCYTES 1.94 1.30 - 3.20 10(3)/mcL 01/15/2025 4:26 PM CDT [facility] ABSOLUTE MONOCYTES 0.60 0.20 - 1.00 10(3)/mcL 01/15/2025 4:26 PM CDT [facility] ABSOLUTE EOSINOPHIL 0.12 0.00 - 0.40 10(3)/mcL 01/15/2025 4:26 PM CDT [facility] ABSOLUTE BASOPHILS 0.06 0.00 - 0.10 10(3)/mcL 01/15/2025 4:26 PM CDT [facility] ABSOLUTE IMMATURE GRANULOCYTE 0.03 0.00 - 0.03 10 (3) mcL. 01/15/2025 4:26 PM CDT [facility] NRBC PER 100 WBC 0 01/16/20 4:26 PM CDT [facility] RESULTS ARE CONSISTENT WITH PERIPHERAL SMEAR REVIEW Yes 01/15/2025 4:26 PM CDT [facility] RBC MORPHOLOGY CONSISTENT WITH INDICES Yes 01/15/2025 4:26 PM CDT [facility] Blood Venipuncture / Unknown 01/15/2025 1:31 PM CDT 01/15/2025 1:31 PM CDT Narrative [facility] - 01/15/2025 4:26 PM CDT Macrocytosis us Laurent Kumar MD HEMATOLOGY ORDERABLES Fi nal Result [facility] [place] [address] * (ABNORMAL) BASIC METABOLIC PANEL W/ CALCIUM TOTAL (01/15/2025 1:31 PM CDT) SODIUM 137 136 - 145 mmol/L 01/15/2025 4:26 PM CDT [facility] POTASSIUM 3.8 3.5 - 5.1 mmol/L 01/15/2025 4:26 PM CDT [facility] CHLORIDE 101 98 - 107 mmol/L 01/15/2025 4:26 PM CDT [facility] CO2, VENOUS 25 22 - 30 mmol/L 01/15/2025 4:26 PM CDT [facility] ANION GAP 14.8 <18.0 mmol/L 01/15/2025 4:26 PM T [facility] GLUCOSE 165(H) 70 - 99 mg/dL 01/15/2025 4:26 PM T [facility] BUN 20 10 - 20 mg/dL 01/15/2025 4:26 PM [facility] CREATININE, BLOOD 1.25(H) 0.60 - 1.00 mg/dL 01/15/2025 4:26 PM T [facility] BUN/CREATININE RATIO 16 12 - 20 ratio 01/15/2025 4:26 PM [facility] CALCIUM 8.8 8.7 - 10.5 mg/dL 01/15/2025 4:26 PM [facility] IS THE PATIENT REQUIRED TO BE FASTING? No 01/15/2025 4:26 PM [facility] GFR, ESTIMATED 45(L) >=60 01/15/2025 4:26 PM [facility] Comment: Creatinine Clearance is the preferred criteria for selecting drug dose adjustments in renally impaired patients. The GFR is provided as additional pertinent clinical information. GFR is reported in mL/min/1.73 sq m. Calculation based on the 2020 Chronic Kidney Disease Epidemiology Collaboration (CKD-EPI) equation refit without adjustment for race. GFR, EST. 51(L) >=60 025 4:26 PM [facility] Comment: Creatinine Clearance is the preferred criteria for selecting drug dose adjustments in renally impaired patients. The GFR is provided as additional pertinent clinical information. GFR is reported in mL/min/1.73 sq m. Calculation based on the 2009 Chronic Kidney Disease Epidemiology Collaboration (CKD-EPI). GFR, EST. NONAFRICAN 42(L) >=60 01/15/2025 4:26 PM [facility] Comment: Creatinine Clearance is the preferred criteria for selecting drug dose adjustments in renally impaired patients. The GFR is provided as additional pertinent clinical information. GFR is reported in mL/min/1.73 sq m. Calculation based on the 2009 Chronic Kidney Disease Epidemiology Collaboration (CKD-EPI). Blood Venipuncture / Unknown 01/15/2025 1:31 PM CDT 01/15/2025 1:31 PM CDT us Liz Jamilah Capellan DO CHEMISTRY ORDERABLES Final Re sult Performing Organization Address [facility] Co de Phone Number [facility] [place] [address] * (ABNORMAL) Hemoglobin A1C (if indicated) (12/14/2024 10:03 AM CDT) HGB-A1C 7.2(H) 4.0 - 6.0 % 12/14/2024 4:57 PM CDT [facility] Est Average Glucose 159.9 mg/dL 12/14/2024 4:57 PM CDT [facility] Blood Venipuncture / Unknown 12/14/2024 10:03 AM CDT 12/14/2024 10:20 AM CDT Narrative [facility] - 12/14/2024 4:57 PM CDT HEMOGLOBIN A1C: DIABETIC PATIENTS: WELL-CONTROLLED: 6.2 - 7.0 INTERMEDIATE WELL-CONTROLLED: 7.0 - 9.0 POORLY-CONTROLLED: >9.0 Specimens containing greater than 5% of Hemoglobin F may result in lower than expected % HbA1C results. 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 MF: IDANIA Report ID: [id number] Reading Location: [id number] IMPRESSION: 1. Osteoporosis. REFERENCE: Bone mineral density: [...] IMG DEXA ORDERABLES Final Res ult * PODIATRY CONSULT (10/27/2024 12:00 AM CDT) 10/27/2024 Keith Craft MD GENERIC SCAN ORDERS CONSULT Loren l Result SCAN * Stool, Occult Blood, Diagnostic, via Guaiac (06/02/2023 5:05 PM [employer] BAKER) OCCULT BLOOD DIAG Negative Negative 06/02/2023 5:23 PM [employer] Stool STOOL SPECIMEN / Unknown Non-Phlebotomy Collection / Unknown 06/02/2023 5:05 PM [employer]ER 06/02/2023 5:08 PM [employer] Maggie Molina MD BODY FLUIDS & STOOLS ORDERABL ES Final Result [facility] [place] [address] * RADHA SCREENING BILATERAL DIGITAL W CAD [...] dated: 11/28/2021, 09/21/2021, 11/30/2020, 11/02/2020, and 08/05/2018 [facility]. BREAST TISSUE:The tissue of both [...] signed by: Cris Sosa M.D. ll/:02/26/2023 19:37:54 Community Theater Actor(s): RT Jaun(Jonathan)(M), [facility] letter sent: Normal Exam Reading location: [facility] BI-RADS: 2 Benign Procedure Note Cris Sosa [...] dated: 11/28/2021, 09/21/2021, 11/30/2020, 11/02/2020, and 08/05/2018 [facility]. BREAST TISSUE:The tissue of both [...] signed by: Cris Sosa M.D. ll/:02/26/2023 19:37:54 Community Theater Actor(s): RT Jaun(R)(M), [facility] letter sent: Normal Exam Reading location: [facility] BI-RADS: 2 Benign Keith Craft MD IMG MAMMO ORDERABLES Final Resul t * HEPATITIS C ANTIBODY (12/17/2022 11:39 AM CDT) hepatitis C antibody 0.06 <1 S/[facility] ARCH [id number] B 12/17/2022 11:37 PM CDT [facility] Comment: Signal/Cutoff ratio < 0.79 is Nondetected [...] Craft MD CHEMISTRY ORDERABLES Final Resul t [facility] [address] [address], from Last 3 Months or Most Recently [...] Documents on File Type Date Recorded Patient Patient Service Associate Expl anation Power of Deicer Tester for Health Care 09/09/2024 10:14 AM POA HC 06/13/2016 Advance Care Planning Discussion 09/19/2022 1:09 PM ACP Discussion Recor d/ 09/19/22 * Full Code (Latest Code Status on File) Date Activated Date Inactivated Comments 12/15/2024 9:26 AM CPR-Full Treat ment: FULL ARREST: Attempt Resuscitation/CPR wit intubation and mechanical ventilation. PRE-ARREST: Use entire range of life support measures to stabilize the patient. * Full Code Date Activated Date Inactivated Comments 10/05/2024 2:45 PM 12/15/2024 9:26 AM CPR-Full Manjinder atment: FULL ARREST: Attempt [...] measures to stabilize the patient. Care Teams Teacher Of Family And Consumer Science Relationship Specialty Start Date End Date Liz Capellan DO [address] [address] PCP - General Family Medicine 12/27/23 Quang Locke DO Gastroenterology 01/18/16 [place] [id number] [address] 05/25/21 Werner Swift MD #2 [place] [address] Consulting Physician Pulmonary Disease 01/30/22 Yasmin Restrepo MD #[address] [phone] Consulting Physician Endocrinology 07/20/24 Jose Do MD [facility] [address] Consulting Physician Colon and Rectal Surgery 10/12/24
--- OUTSIDE RECORDS SUMMARY | 2025-03-23 14:59 | XMS_ITS | Encounter Summary ---
Author Organization [facility] Address [address] [place] [address] Phone Care Team Providers Care Log Deckman Name Role Phone Quang Locke Unavailable [phone] Keith Craft MD Primary Care Provider [phone] Bri Rollins RN Unavailable Unavailable Silvio Schulte MD Unavailable [phone] Bri Rollins RN Unavailable Unavailable Werner Swift MD Unavailable Liz Capellan DO Primary Care Provider [phone] Yasmin Restrepo MD Unavailable Jose Do MD Unavailable Reason for Visit * Reason Comments Medication Refill Encounter Details Date Type Department Care Team (Late st Contact Info) Description 12/19/2021 [facility]ill [facility] #2 [place] [address] Keith Craft MD #1 [place] [address] Medication Refill Social History Tobacco [...] MD [facility] [place] 05/25/21 Office Visit Marcin AndersonREBECCA, DISCOUNT CLERK [facility] 05/05/21 Office Visit Brie Denis, PAC [facility] 04/14/21 Office Visit Keith Craft MD [facility] [place] 05/25/21 Office Visit Marcin Anderson APRN, DISCOUNT CLERK [facility] 05/05/21 Office Visit Brie Denis, PAC [facility] 04/14/21 Office Visit Ketih Craft MD [facility] 03/23/21 Office Visit Keith Craft MD [facility] Showing recent visits within past 365 days and meeting all other requirements Future Appointments Date Type Provider Dept 03/09/22 Appointment Keith Craft MD [facility] Showing future appointments within next 90 days and meeting all other requirements ergocalciferol (VITAMIN D) 20855 UNIT Capsule [Pharmacy Med Name: VITAMIN D [id number] CAPSULE] 12 Capsule 0 Sig: TAKE ONE [...] [place] 09/08/21 Office Visit Brie Denis, PAC [facility] [place] 08/14/21 [facility] [place] 05/25/21 Office Visit Marcin Anderson APRN, [facility] 05/[facility]/21 Office Visit Brie Denis, PAC [facility] [place] 04/14/21 Office Visit [facility] [place] 03/23/21 Office Visit Keith Craft, [facility] Showing recent visits within past 365 days and meeting all other requirements Future Appointments Date Type Provider Dept 03/09/22 Appointment Keith Craft MD [facility] [place] Showing future appointments within next 90 [...] [facility] [place] 09/08/21 Office Visit Brie Denis, PAC [facility] 08/14/21 Office Visit Keith Craft, [facility] [place] 07/31/21 Office Visit Keith Craft MD [facility] [place] 05/25/21 Office Visit Marcin Anderson ORDER ENTRY REPRESENTATIVE, DISCOUNT CLERK [facility] [place] 05/05/21 Office Visit Brie Denis, PAC [facility] [place] 04/14/21 Office Visit Keith Craft MD [facility] 03/23/21 Office Visit Keith Craft, [facility] Showing recent visits within past 365 days and meeting all other requirements Future Appointments Date Type Provider Dept 03/09/22 Appointment Keith Craft, [facility] Showing future appointments within next 90 days and meeting all other requirements documented in this encounter Plan of Treatment Upcoming Encounters Date Type Department Care Team (Late st Contact Info) Description 04/26/2025 1:30 PM EPIC PRELUDE ANALYST Office Visit [facility] - Pulmonology & Sleep Medicine - [place] [address] [place] [address] Werner Swift MD #2 [place] [address] 05/31/2025 1:20 PM EPIC PRELUDE ANALYST Office Visit [facility] - Family Medicine - [place] [address]2 [place] [address] Liz Capellan, DO [address] [address] 06/02/2025 1:30 PM EPIC PRELUDE ANALYST Office Visit [facility] - Endocrinology - [place] [address]2 [place] [address] Yasmin Restrepo MD [address] [phone] documented as of this encounter Goals Goal [...] Zones/Action plan education. I will notify my Catalyst Concentration Operator if my symptoms fall in the y ellow zone . I will consider receiving an influenza and pneumonia vaccination, if applicable. -I will call the office if I experience any symptoms listed above to discuss at home management options. documented as of this encounter Visit Diagnoses Diagnosis Acquired hypothyroidism Unspecified hypothyroidism Pulmonary emphysema, unspecified emphysema type documented in this encounter Additional Health Concerns Infection Onset Date Last Indicated Resolved Time Stenotrophomonas maltophilia Comment:Must have a follow up respiratory sample to remove isolation/infection flag. 10/20/2021 10/20/2021 COVID - 19 04/20/2022 04/20/2022 04/30/2022 12:1 8 AM EPIC PRELUDE ANALYST COVID - 19 07/18/2022 07/18/2022 07/28/2022 12:1 6 AM EPIC PRELUDE ANALYST COVID - 19 08/21/2022 08/21/2022 08/22/2022 8:31 AM CDT Respiratory Rule Out - RPA 08/21/2022 08/21/2022 0 08/22/2022 3:21 PM CDT COVID - 19 04/18/2023 04/18/2023 04/28/2023 12:1 6 AM EPIC PRELUDE ANALYST COVID - 19 07/13/2023 07/13/2023 07/23/2023 12:1 6 AM EPIC PRELUDE ANALYST Respiratory Rule Out - RPA 03/17/2024 03/17/2024 1 3:36 PM CDT COVID - 19 04/27/2024 04/27/2024 04/27/2024 2:19 PM EPIC PRELUDE ANALYST Respiratory Rule-Out 07/24/2024 07/24/2024 025 2:29 PM EPIC PRELUDE ANALYST COVID - 19 07/24/2024 07/24/2024 07/24/2024 2:29 PM EPIC PRELUDE ANALYST COVID - 19 08/22/2024 08/22/2024 08/22/2024 11:4 6 PM CDT COVID - 19 09/03/2024 09/03/2024 09/03/2024 12:4 7 PM CDT Assessment Noted Time PHQ-9 Depression Total Score: 1 03/07/20 21 10:29 AM CDT documented as of this encounter Care Teams Log Deckman Relationship Specialty Start Date End Date Keith Craft MD PCP - General Family Medicine 01/14/19 12/26/23 Liz Capellan DO [address] [address] PCP - General Family Medicine 12/27/23 Quang Locke DO Gastroenterology 01/18/16 Bri Rollins RN [place] Catalyst Concentration Operator 03/07/21 05/22/23 [place] [address] [place] [address] 05/25/21 Bri Rollins, [place] Nurse Catalyst Concentration Operator 03/07/21 05/23/23 Werner Swift MD #2 [place] [address] Consulting Physician Pulmonary Disease 01/30/22 Yasmin Restrepo MD #2 [facility] [address] [place] [address] Consulting Physician Endocrinology 07/20/24 Jose Do MD #2 [facility] [address] [place] [address] Consulting Physician Colon and Rectal Surgery 10/12/24 documented as of this encounter
--- OUTSIDE RECORDS SUMMARY | 2025-03-23 14:59 | XMS_ITS | Encounter Summary ---
Author Organization [facility] Address [address] [place] [address] Phone Care Team Providers Care Check Embosser Name Role Phone Quang Locke Unavailable [phone] Keith Craft MD Primary Care Provider [phone] Silvio Schulte MD Unavailable [phone] Werner Swift MD Unavailable Liz Capellan DO Primary Care Provider [phone] Yasmin Restrepo MD Unavailable Jose Do MD Unavailable Reason for Visit * Reason Comments Medication Refill Encounter Details Date Type Department Care Team (Late st Contact Info) Description 09/09/2023 Refill [facility] #2 [place] [address] Keith Craft MD #1 [place] [address] Medication Refill Social History Tobacco Use Types Packs/Day Years Used Date Smoking Tobacco: Former Cigarettes 2 50 1 - 03/16/2018 Smokeless Tobacco: Never Comments:Still uses nictoine patches and gum Alcohol Use Standard Drinks/Week Comments No 0 (1 standard drink = 0.6 oz pur e alcohol) [facility] Utilities Answer Date Recorded In [...] 0 08/2021 [facility] [place] of Occupat ional Health - Occupational [...] [place] 04/12/23 Office Visit [facility] [place] Showing recent visits within past 182 [...] st Contact Info) Description 04/26/2025 1:30 PM WASTE WATER TREATMENT PLANT OPERATOR Office Visit [facility] - Pulmonology & Sleep Medicine - [place] #2 [place] [address] Werner Swift MD #2 [facility] [address] 05/31/2025 1:20 PM WASTE WATER TREATMENT PLANT OPERATOR Office Visit [facility] - Family Medicine - [place] #2 [facility] [place] [address] Liz Capellan, DO 2 [facility] [address] [place], [place] [address] 06/02/2025 1:30 PM WASTE WATER TREATMENT PLANT OPERATOR Office Visit [facility] - Endocrinology - [place] #2 [place] [address] Yasmin Restrepo MD #[address] [phone] documented as of this encounter Goals Goal [...] Zones/Action plan education. I will notify my Ignition Specialist if my symptoms fall in the [...] - 19 04/27/2024 04/27/2024 04/27/2024 2:19 PM WASTE WATER TREATMENT PLANT OPERATOR Respiratory Rule-Out 07/24/2024 07/24/2024 025 2:29 PM WASTE WATER TREATMENT PLANT OPERATOR COVID - 19 07/24/2024 07/24/2024 07/24/2024 2:29 PM WASTE WATER TREATMENT PLANT OPERATOR COVID - 19 08/22/2024 08/22/2024 08/22/2024 11:4 6 PM CDT COVID - 19 09/03/2024 09/03/2024 09/03/2024 12:4 7 PM CDT Assessment Noted Time PHQ-9 Depression Total Score: 1 03/07/20 21 10:29 AM CDT documented as of this encounter Care Teams Check Embosser Relationship Specialty Start Date End Date Keith Craft MD PCP - General Family Medicine 01/14/19 12/26/23 Liz Capellan DO 2 [facility] [address] [address] PCP - General Family Medicine 12/27/23 Quang Locke DO Gastroenterology 01/18/16 [place] [address] [address] 05/25/21 Werner Swift MD #2 [place] [address] Consulting Physician Pulmonary Disease 01/30/22 Yasmin Restrepo MD #[address] [address] Consulting Physician Endocrinology 07/20/24 Jose Do MD #[address] [address] Consulting Physician Colon and Rectal Surgery 10/12/24 documented as of this encounter
--- OUTSIDE RECORDS SUMMARY | 2025-03-23 14:59 | XMS_ITS | Clinical Summary ---
Author Organization [facility] Address [address] [place] [address] Care Team Providers Care Textile Dyer Name Role Phone Unavailable Primary Care Provider Unavailabl e Source Comments [facility] [employer],non-owned Affiliates and Associated Physician Practices is amultiple site organization consisting of ambulatory clinics and hospital sitesin [place], [place], [place] and [place]. This disclosure is being madepursuant to the Care Everywhere program and may not contain all information available regarding this patient. Last updated 18.[facility] [employer] Social History Tobacco Use Types Packs/Day Years Used Date Smoking Tobacco: Never Assessed Comments Unknown Sex and Gender Information Value Date Recorded Sex Assigned at Not on file Legal Sex Female 4:23 AM YOUTH OFFICER Gender Identity Not on file Sexual Orientation [...] age to complete this topic Insurance MEDICARE [facility] MEDICAID - OUT OF STATE [place] MEDICARE MANAGED CARE PLAN GENERIC MEDICARE ADV
--- OUTSIDE RECORDS SUMMARY | 2025-03-23 14:59 | XMS_ITS | Encounter Summary ---
Author Organization [facility] Address [address] [place] [address] Phone Care Team Providers Care Kettle Loader Name Role Phone Quang Locke Unavailable [phone] Keith Craft MD Primary Care Provider [phone] Silvio Schulte MD Unavailable [phone] Werner Swift MD Unavailable Liz Capellan DO Primary Care Provider [phone] Yasmin Restrepo MD Unavailable Jose Do MD Unavailable Reason for Visit * Reason Comments Medication Refill Encounter Details Date Type Department Care Team (Late st Contact Info) Description 09/02/2023 Refill [facility] Medicine - [place] #2 [place] [address] Marcin Anderson APRN, SYSTEM ARCHIVE ANALYST #[address] [address] Medication Refill Social History Tobacco Use Types Packs/Day Years Used Date Smoking Tobacco: Former Cigarettes 2 50 1 - 03/16/2018 Smokeless Tobacco: Never Comments:Still uses nictoine patches and gum Alcohol Use Standard Drinks/Week Comments No 0 (1 standard drink = 0.6 oz pur e alcohol) [facility] Utilities Answer Date Recorded In the [...] Score - Questions 1-9 0 /0 08/2021 [facility] of Occupat ional Health - Occupational Stress [...] RN - 09/02/2023 2:53 PM CDT PDMP 24, 30 days Medication failed the protocol, provider [...] Craft MD [facility] 05/02/23 Office Visit Kieth Craft MD [facility] 04/12/23 Office Visit Keith Craft MD [facility] 12/10/22 Office Visit Keith Craft MD [facility] 09/10/22 Office Visit Keith Craft MD [facility] [place] Showing recent visits within past 365 days and meeting all other requirements Future Appointments No visits were found meeting these conditions. Showing future appointments within next 90 days and meeting all other requirements documented in this encounter Plan of Treatment Upcoming Encounters Date Type Department Care Team (Late st Contact Info) Description 04/26/2025 1:30 PM DIE POLISHER Office Visit [facility] - Pulmonology & Sleep Medicine - [place] #2 [place] [address] Werner Swift MD #2 [place] [address] 05/31/2025 1:20 PM DIE POLISHER Office Visit [facility] Medical [facility] - Family Medicine - [place] #2 [place] [address] Liz Capellan, DO [address] [address] 06/02/2025 1:30 PM DIE POLISHER Office Visit [facility] Medical [facility] - Endocrinology - [place] #2 [place] [address] Yasmin Restrepo MD #[address] [phone] documented as of this encounter Goals Goal [...] Zones/Action plan education. I will notify my Cocoa Mill Operator if my symptoms fall in the [...] - 19 04/27/2024 04/27/2024 04/27/2024 2:19 PM DIE POLISHER Respiratory Rule-Out 07/24/2024 07/24/2024 025 2:29 PM DIE POLISHER COVID - 19 07/24/2024 07/24/2024 07/24/2024 2:29 PM DIE POLISHER COVID - 19 08/22/2024 08/22/2024 08/22/2024 11:4 6 PM CDT COVID - 19 09/03/2024 09/03/2024 09/03/2024 12:4 7 PM CDT Assessment Noted Time PHQ-9 Depression Total Score: 1 03/07/20 21 10:29 AM CDT documented as of this encounter Care Teams Kettle Loader Relationship Specialty Start Date End Date Keith Craft MD PCP - General Family Medicine 01/14/19 12/26/23 Liz Capellan DO [address] [id number] PCP - General Family Medicine 12/27/23 Quang Locke DO Gastroenterology 01/18/16 [place] [address] [address] 05/25/21 Werner Swift MD #2 [place] [address] Consulting Physician Pulmonary Disease 01/30/22 Yasmin Restrepo MD #[address] [address] Consulting Physician Endocrinology 07/20/24 Jose Do MD #[address] [id number] Consulting Physician Colon and Rectal Surgery 10/12/24 documented as of this encounter
--- OUTSIDE RECORDS SUMMARY | 2025-03-23 14:59 | XMS_ITS | Encounter Summary ---
Author Organization [facility] Address [address] [place] [address] Phone Care Team Providers Care Web Feeder Name Role Phone Quang Locke Unavailable [phone] Keith Craft MD Primary Care Provider [phone] Bri Rollins RN Unavailable Unavailable Silvio Schulte MD Unavailable Bri Rollins RN Unavailable Unavailable Werner Swift MD Unavailable Liz Capellan DO Primary Care Provider [phone] Yasmin Restrepo MD Unavailable Jose Do MD Unavailable Reason for Visit * Reason Comments Medication Refill Encounter Details Date Type Department Care Team (Late st Contact Info) Description 04/18/2022 Refill [facility] #2 [place] [address] Keith Craft MD #1 [place] [address] Medication Refill Social History [...] Coronavirus/COVID-19? No / Unsure 04/20/2022 1:05 PM EXECUTIVE BUSINESS COACH documented as of this encounter Miscellaneous Notes [...] [place] 03/02/22 Office Visit Keith Craft MD [facility] [place] 11/03/21 Office Visit Keith Craft MD [facility] 10/19/21 Office Visit [facility] Showing recent visits within past 182 days and meeting all other requirements Future Appointments Date Type Provider Dept 06/04/22 Appointment Keith Craft MD [facility] Showing future appointments within next 90 days and meeting all other requirements Passed - Has an encounter in the past 6 months with a depression or anxiety visit diagnosis UTIVE BUSINESS COACH documented in this encounter Plan of Treatment Upcoming Encounters Date Type Department Care Team (Late st Contact Info) Description 04/26/2025 1:30 PM EXECUTIVE BUSINESS COACH [facility] - Pulmonology & Sleep Medicine - [place] #2 [place] [address] Werner Swift MD #2 [facility] [place] [address] 05/31/2025 1:20 PM EXECUTIVE BUSINESS COACH Office Visit [facility] - Family Medicine - [place] #2 [place] [address] Liz Capellan, DO [address] [address] 06/02/2025 1:30 PM EXECUTIVE BUSINESS COACH Office Visit [facility] Endocrinology - [place] #2 [place] [address] Yasmin Rsetrepo MD #[address] [address] documented as of this encounter Goals Goal [...] Zones/Action plan education. I will notify my Trademark Affixer if my symptoms fall in the y [...] 19 04/20/2022 04/20/2022 04/30/2022 12:1 8 AM EXECUTIVE BUSINESS COACH COVID - 19 07/18/2022 07/18/2022 07/28/2022 12:1 6 AM EXECUTIVE BUSINESS COACH COVID - 19 08/21/2022 08/21/2022 08/22/2022 8:31 AM CDT Respiratory Rule Out - RPA 08/21/2022 08/21/2022 0 08/22/2022 3:21 PM CDT COVID - 19 04/18/2023 04/18/2023 04/28/2023 12:1 6 AM EXECUTIVE BUSINESS COACH COVID - 19 07/13/2023 07/13/2023 07/23/2023 12:1 6 AM EXECUTIVE BUSINESS COACH Respiratory Rule Out - RPA 03/17/2024 03/17/2024 1 3:36 PM CDT COVID - 19 04/27/2024 04/27/2024 04/27/2024 2:19 PM EXECUTIVE BUSINESS COACH Respiratory Rule-Out 07/24/2024 07/24/2024 025 2:29 PM EXECUTIVE BUSINESS COACH COVID - 19 07/24/2024 07/24/2024 07/24/2024 2:29 PM EXECUTIVE BUSINESS COACH COVID - 19 08/22/2024 08/22/2024 08/22/2024 11:4 6 PM CDT COVID - 19 09/03/2024 09/03/2024 09/03/2024 12:4 7 PM CDT Assessment Noted Time PHQ-9 Depression Total Score: 1 03/07/20 21 10:29 AM CDT documented as of this encounter Care Teams Web Feeder Relationship Specialty Start Date End Date Keith Craft MD PCP - General Family Medicine 01/14/19 12/26/23 Liz Capellan DO [address] [address] PCP - General Family Medicine 12/27/23 Quang Locke DO Gastroenterology 01/18/16 Bri Rollins RN [place] Trademark Affixer 03/07/21 05/22/23 [place] [address] [address] 05/25/21 Bri Rollins RN [place] Nurse Trademark Affixer 03/07/21 05/23/23 Werner Swift MD #2 [place] [address] Consulting Physician Pulmonary Disease 01/30/22 Yasmin Restrepo MD #[address] [address] Consulting Physician Endocrinology 07/20/24 Jose Do MD #2 [place] [address] Consulting Physician Colon and Rectal Surgery 10/12/24 documented as of this encounter
--- OUTSIDE RECORDS SUMMARY | 2025-03-23 14:59 | XMS_ITS | Encounter Summary ---
Author Organization [facility] Address [address] [place] [address] Phone Care Team Providers Care Supply Coordinator Name Role Phone Quang Locke Unavailable [phone] Keith Craft MD Primary Care Provider Silvio Schulte MD Unavailable [phone] Werner Swift MD Unavailable Liz Capellan DO Primary Care Provider [phone] Yasmin Restrepo MD Unavailable Jose Do MD Unavailable Reason for Visit * Reason Comments Medication Refill Encounter Details Date Type Department Care Team (Late st Contact Info) Description 08/05/2023 Refill [facility] #2 [place] [address] Keith Craft MD #1 [place] [address] Medication Refill Social History Tobacco Use Types [...] Score - Questions 1-9 0 08/2021 [facility] [place] of Occupat ional Health - Occupational Stress [...] MD [facility] 04/12/23 Office Visit CraftKeith banda MD [facility] 12/10/22 Office Visit Keith [...] Status 12/17/2022 No Final ergocalciferol (VITAMIN D) 85058 UNIT Capsule [Pharmacy Med Name: VITAMIN D [id number] CAPSULE] 12 Capsule 0 Sig: TAKE ONE [...] st Contact Info) Description 04/26/2025 1:30 PM INCIDENT RESPONSE COORDINATOR Office Visit [facility] Medical [facility] - Pulmonology & Sleep Medicine [facility] #2 [place] [address] Werner Swift MD [facility] [place] [address] 05/31/2025 1:20 PM INCIDENT RESPONSE COORDINATOR Office Visit [facility] Medical [facility] - Family Medicine - [place] #2 [place] [address] Liz Capellan, DO [address] [place] [address] 06/02/2025 1:30 PM INCIDENT RESPONSE COORDINATOR Office Visit [facility] - Endocrinology - [place] #[address] [place] [address] Yasmin Restrepo MD #[address] [facility] [address] [place] [address] documented as of this encounter Goals Goal [...] Zones/Action plan education. I will notify my Dredge Master if my symptoms fall in the y [...] - 19 04/27/2024 04/27/2024 04/27/2024 2:19 PM INCIDENT RESPONSE COORDINATOR Respiratory Rule-Out 07/24/2024 07/24/2024 025 2:29 PM INCIDENT RESPONSE COORDINATOR COVID - 19 07/24/2024 07/24/2024 07/24/2024 2:29 PM INCIDENT RESPONSE COORDINATOR COVID - 19 08/22/2024 08/22/2024 08/22/2024 11:4 6 PM CDT COVID - 19 09/03/2024 09/03/2024 09/03/2024 12:4 7 PM CDT Assessment Noted Time PHQ-9 Depression Total Score: 1 03/07/20 10:29 AM CDT documented as of this encounter Care Teams Supply Coordinator Relationship Specialty Start Date End Date Keith Craft MD PCP - General Family Medicine 01/14/19 12/26/23 Liz Capellan DO [address] [address] PCP - General Family Medicine 12/27/23 Quang Locke DO Gastroenterology 01/18/16 [place] [address] [address] 05/25/21 Werner Swift MD #2 [place] [address] Consulting Physician Pulmonary Disease 01/30/22 Yasmin Restrepo MD #[address] [address] Consulting Physician Endocrinology 07/20/24 Jose Do MD #[address] [address] Consulting Physician Colon and Rectal Surgery 10/12/24 documented as of this encounter
--- OUTSIDE RECORDS SUMMARY | 2025-03-23 14:59 | XMS_ITS | Encounter Summary ---
Author Organization [facility] Address [address] [place] [address] Phone Care Team Providers Care Service And Repair Supervisor Name Role Phone Quang Locke Unavailable [phone] Keith Craft MD Primary Care Provider [phone] Bri Rollins RN Unavailable Unavailable Silvio Schulte MD Unavailable [phone] Bri Rollins RN Unavailable Unavailable Werner Swift MD Unavailable Liz Capellan DO Primary Care Provider [phone] Yasmin Restrepo MD Unavailable Jose Do MD Unavailable Reason for Visit * Reason Comments Medication Refill Encounter Details Date Type Department Care Team (Late st Contact Info) Description 03/17/2022 Refill [facility] - Family Medicine [facility] [address] [place] [address] Keith Craft MD [address] [place] [address] Medication Refill Social History Tobacco [...] Pending Prescriptions Disp Refills ergocalciferol (VITAMIN D) 06733 UNIT Capsule [Pharmacy Med Name: VITAMIN D [id number] CAPSULE] 12 Capsule 0 Sig: TAKE ONE [...] [place] 03/02/22 Office Visit Keith Craft MD [facility] [place] 11/03/21 Office Visit Keith Craft MD [facility] [place] 10/19/21 Office Visit Keith Craft MD [facility] [place] 10/05/21 Office Visit Keith Craft MD [facility] [place] 09/08/21 Office Visit Brie Denis, NICOLE [facility] [place] 08/14/21 Office Visit Keith Craft MD [facility] [place] 07/31/21 Office Visit Keith Craft MD [facility] [place] 05/25/21 Office Visit Marcin Anderson APRN, JAKOB [facility] [place] 05/05/21 Office Visit Brie Denis, PAC [facility] [place] Showing recent visits within past 365 days and meeting all other requirements Future Appointments Date Type Provider Dept 06/04/22 Appointment Keith Craft MD [facility] [place] Showing future appointments within next 90 days [...] RETINAL IMAGING [facility] [place] 03/02/22 Office Visit Keith Craft MD [facility] [place] 11/03/21 Office Visit Keith Craft MD [facility] [place] 10/19/21 Office Visit Keith Craft MD [facility] [place] 10/05/21 Office Visit Keith Craft MD [facility] [place] 09/08/21 Office Visit Brie Denis, PAC [facility] [place] 08/14/21 Office Visit Keith Craft MD [facility] [place] 07/31/21 Office Visit Keith Craft MD [facility] [place] 05/25/21 Office Visit Marcin Anderson APRN, JAKOB [facility] [place] 05/05/21 Office Visit Brie Denis, PAC [facility] [place] Showing recent visits within past 730 days [...] [place] 03/02/22 Office Visit Keith Craft, [facility] [place] 11/03/21 Office Visit Keith Craft, [facility] [place] 10/19/21 Office Visit Keith Craft, [facility] [place] 10/05/21 Office Visit Keith Craft, [facility] [place] 09/08/21 Office Visit Brie Denis, PAC [facility] [place] 08/14/21 Office Visit Keith Craft, [facility] [place] 07/31/21 Office Visit Keith Craft, [facility] [place] 05/25/21 Office Visit Marcin Anderson APRN, [employer] [facility] 05/[facility]/21 Office Visit Brie Denis, [facility] [place] Showing recent visits within past 365 days and meeting all other requirements Future Appointments Date Type Provider Dept 06/04/22 Appointment Keith Craft MD [facility] Showing future appointments within next 90 days [...] [facility] [place] 11/03/21 Office Visit Keith Craft, [facility] [place] 10/19/21 Office Visit Keith Craft, [facility] [place] 10/05/21 Office Visit Keith Craft, [facility] [place] 09/08/21 Office Visit Brie Denis, PAC [facility] [place] 08/14/21 Office Visit Keith Craft, [facility] [place] 07/31/21 Office Visit Keith Craft, [facility] [place] 05/25/21 Office Visit Marcin Anderson APRN, [employer]CH [facility] [place] 05/05/21 Office Visit Brie Denis, [facility] [place] Showing recent visits within past 365 days and meeting all other requirements Future Appointments Date Type Provider Dept 06/04/22 Appointment Keith Craft, MD [facility] [place] Showing future appointments within next 90 [...] 09/08/21 Office Visit Brie Denis, PAC [facility] [place] 08/14/21 Office Visit Kieth Craft, [facility] [place] 07/31/21 Office Visit Keith Craft MD [facility] [place] 05/25/21 Office Visit Marcin Anderson, [employer], [employer] [facility] 05/05/21 Office Visit Brie Denis, PAC [facility] Showing recent visits within past 365 days and meeting all other requirements Future Appointments Date Type Provider Dept 06/04/22 Appointment Keith Craft MD [facility] Showing future appointments within next 90 days and meeting all other requirements documented in this encounter Plan of Treatment Upcoming Encounters Date Type Department Care Team (Late st Contact Info) Description 04/26/2025 1:30 PM SENIOR DATA SCIENTIST Office Visit [facility] - Pulmonology & Sleep Medicine - [place] [address] [facility] [place] [address] Werner Swift MD [address] [place] [address] 05/31/2025 1:20 PM SENIOR DATA SCIENTIST Office Visit [facility] - Family Medicine - [place] [address] [facility] [place] [phone] Liz Capellan, DO 2 [facility] [address] [place] [address] 06/02/2025 1:30 PM SENIOR DATA SCIENTIST Office Visit [facility] - Endocrinology - [place] [address] [facility] [place] [phone] Yasmin Restrepo MD [address] [place] [phone] documented as of this encounter Goals Goal [...] Zones/Action plan education. I will notify my [employer] if my symptoms fall in the y ellow zone . I will consider receiving an influenza and pneumonia vaccination, if applicable. -I will call the office if I experience any symptoms listed above to discuss at home management options. documented as of this encounter Visit Diagnoses Diagnosis Insomnia, unspecified type Pulmonary emphysema, unspecified emphysema type documented in this encounter Additional Health Concerns Infection Onset Date Last Indicated Resolved Time Stenotrophomonas maltophilia Comment:Must have a follow up respiratory sample to remove isolation/infection flag. 10/20/2021 10/20/2021 COVID - 19 04/20/2022 04/20/2022 04/30/2022 12:1 8 AM SENIOR DATA SCIENTIST COVID - 19 07/18/2022 07/18/2022 07/28/2022 12:1 6 AM SENIOR DATA SCIENTIST COVID - 19 08/21/2022 08/21/2022 08/22/2022 8:31 AM CDT Respiratory Rule Out - RPA 08/21/2022 08/21/2022 0 08/22/2022 3:21 PM CDT COVID - 19 04/18/2023 04/18/2023 04/28/2023 12:1 6 AM SENIOR DATA SCIENTIST COVID - 19 07/13/2023 07/13/2023 07/23/2023 12:1 6 AM SENIOR DATA SCIENTIST Respiratory Rule Out - RPA 03/17/2024 03/17/2024 1 3:36 PM CDT COVID - 19 04/27/2024 04/27/2024 04/27/2024 2:19 PM SENIOR DATA SCIENTIST Respiratory Rule-Out 07/24/2024 07/24/2024 025 2:29 PM SENIOR DATA SCIENTIST COVID - 19 07/24/2024 07/24/2024 07/24/2024 2:29 PM SENIOR DATA SCIENTIST COVID - 19 08/22/2024 08/22/2024 08/22/2024 11:4 6 PM CDT COVID - 19 09/03/2024 09/03/2024 09/03/2024 12:4 7 PM CDT Assessment Noted Time PHQ-9 Depression Total Score: 1 03/07/20 21 10:29 AM CDT documented as of this encounter Care Teams Service And Repair Supervisor Relationship Specialty Start Date End Date Keith Craft MD PCP - General Family Medicine 01/14/19 12/26/23 Liz Capellan DO [address] [address] PCP - General Family Medicine 12/27/23 Quang Locke DO Gastroenterology 01/18/16 Bri Rollins RN [place] [employer] 03/07/21 05/22/23 [place] [id number] [address] 05/25/21 Bri Rollins RN [place] Nurse [employer] 03/07/21 05/23/23 Werner Swift MD [address] [place] [address] Consulting Physician Pulmonary Disease 01/30/22 Yasmin Restrepo MD [address] [phone] Consulting Physician Endocrinology 07/20/24 Jose Do MD [address] [address] Consulting Physician Colon and Rectal Surgery 10/12/24 documented as of this encounter
== END 2025-03-23 13:48 | disposition home or self-care (01) ==
DX: S01.81XD Laceration without foreign body of other part of head, subsequent encounter (principal); X58.XXXD Exposure to other specified factors, subsequent encounter; J44.1 Chronic obstructive pulmonary disease with (acute) exacerbation; J01.90 Acute sinusitis, unspecified; E11.9 Type 2 diabetes mellitus without complications; Z79.4 Long term (current) use of insulin; Z79.84 Long term (current) use of oral hypoglycemic drugs; Z79.85 Long-term (current) use of injectable non-insulin antidiabetic drugs; I11.0 Hypertensive heart disease with heart failure; I50.9 Heart failure, unspecified; E78.5 Hyperlipidemia, unspecified; Z95.0 Presence of cardiac pacemaker; Z87.891 Personal history of nicotine dependence; Z79.82 Long term (current) use of aspirin
CPT/HCPCS: 99213; G0463